=== PATIENT | female | born 1965 | race Caucasian/White ===

== ENCOUNTER 2019-01-15 02:41 | Inpatient (IN) | payer MEDICARE, MEDICAID ==
[~2019-01-15] VITALS: Ht 154.9 cm; Wt 63.8 kg
--- OUTSIDE RECORDS SUMMARY | ~2019-01-15 | XMS | Encounter Summary ---
Demographics + + + | Address | [address] | | | [place] [address] | + + + | Home Phone | | + + + | Preferred Language | Unknown | + + + | Marital Status | Single | + + + | Shinto Affiliation | 1041 | + + + | Race | Unknown | + + + | Ethnic Group | Unknown | + + + Author + + + | Author | [facility] | | | and [place] | + + + | Organization | [facility] | | | and [place] | + + + | Address | Unknown | + + + | Phone | Unavailable | + + + Support + + +---------+ + | Name | Relationship | Address | Phone | + + +---------+ + | Juana Sainz | ECON | Unknown | | + + +---------+ + | Vahe Khan | ECON | Unknown | | + + +---------+ + Care Team Providers + +------+ + | Care Market Stall Vendor Name | Role | Phone | + +------+ + PCP | Unavailable | + +------+ + Encounter Details +--------+ + + + + | Date | Type | Department | Care Team | Description | +--------+ + + + + | 01/29/ | Hospital | [facility] | Ozzy Delcid, | | | 2009 - | Encounter | [facility] | MD [address] | | | | | [address] | [place] | | | 02/23/ | | [place] [address] | [id number] | | | 2009 | | [phone] | | | +--------+ + + + + Social History + +-------+ +--------+------+ | Tobacco Use | Types | Packs/Day | Years | Date | | | | | Used | | + +-------+ +--------+------+ | Never Assessed | | | | | + +-------+ +--------+------+ + + + | Sex Assigned at | Date Recorded | | | | + + + | Not on file | | + + + + + + + | Job Start Date | Occupation | Industry | + + + + | Not on file | Not on file | Not on file | + + + + + + + + | Travel History | Travel Start | Travel End | + + + + + + | No recent travel history available. | + + documented as of this encounter Medications at Time of Discharge + + + +---------+ + + | Medication | Sig | Dispensed | Refills | Start | End Date | | | | | | Date | | + + + +---------+ + + | albuterol (PROAIR | 1-2 puff every 4 | | 0 | 12/27/19 | | | HFA) 90 mcg/puff | hours as needed for | | | 10 | 2 | | inhaler | shortness of breath | | | | | + + + +---------+ + + documented as of this encounter Plan of Treatment +--------+---------+ + + + | Date | Type | Specialty | Care Team | Description | +--------+---------+ + + + | 03/01/ | Office | Pulmonology | Mukul Clark MD | | | 2019 | Visit | | [address] | | | | | | [place] | | | | | | [address] | | | | | | | | +--------+---------+ + + + | 11/24/ | Office | Cardiology | [place], | | | 2019 | Visit | | SINDHU Erickson [address] | | | | | | [place], | | | | | | [place] [address] | | | | | | [phone] | | | | | | | | +--------+---------+ + + + documented as of this encounter Visit Diagnoses Not on filedocumented in this encounter"
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
--- OUTSIDE RECORDS SUMMARY | ~2019-01-15 | XMS | Encounter Summary ---
Demographics + + + | Address | [address] | | | [place] [address] | + + + | Home Phone | | + + + | Preferred Language | Unknown | + + + | Marital Status | Single | + + + | Rastafari Affiliation | 1041 | + + + | Race | Unknown | + + + | Ethnic Group | Unknown | + + + Author + + + | Author | [facility] | | | and [place] | + + + | Organization | [facility] | | | [...] Team Providers + +------+ + | Care Charter Driver Name | Role | Phone | + +------+ + | Juan Cherry DO | PCP | | + +------+ + Reason for Visit + + + | Reason | Comments | + + + | Hematuria | | + + + | Bladder Pain | | + + + Encounter Details +--------+ + + + + | Date | Type | Department | Care Team | Description | +--------+ + + + + | 07/24/ | Telephone | [facility] | Andriy Weber | Hematuria; Bladder | | 2017 | | [address] | [address] | Pain | | | | [place], [place] | [facility] | | | | | [address] | [place] [address] | | | | | [phone] | [phone] | | | | | | | [...] [place], | | | | | | [place] [address] | | | | | | [phone] | | | | | | | | +--------+---------+ + + + documented as of this encounter Visit Diagnoses Not on filedocumented in this encounter"
--- OUTSIDE RECORDS SUMMARY | ~2019-01-15 | XMS | Encounter Summary ---
Demographics + + + | Address | [address] | | | [place] [address] | + + + | Home Phone | | + + + | Preferred Language | Unknown | + + + | Marital Status | Single | + + + | Nondenominational Affiliation | 1041 | + + + | Race | Unknown | + + + | Ethnic Group | Unknown | + + + Author + + + | Author | [facility] | | | and [place] | + + + | Organization | [facility] | | [...] Team Providers + +------+ + | Care Assurance Assistant Name | Role | Phone | + +------+ + | Juan Cherry DO | PCP | | + +------+ + Encounter Details +--------+ + + + + | Date | Type | Department | Care Team | Description | +--------+ + + + + | 05/25/ | Documentati | [facility] | Janey Low, | | | 2013 | on | [facility] | INDUSTRIAL ENGINEERING TECHNICIAN [address] | | | | | [address] | [place], [place] | | | | | [place], [place] | [address] | | | | | [address] | [phone] | | | | | [phone] | | | +--------+ + + + + Social History + +-------+ +--------+ + | Tobacco Use | Types | Packs/Day | Years | Date | | | | | Used | | + +-------+ +--------+ + | Former Smoker | | 0.5 | 30 | Quit: 08/28/2012 | + +-------+ +--------+ + + +---+---+---+ [...] documented as of this encounter Progress Notes Janey Low, INDUSTRIAL ENGINEERING TECHNICIAN - 05/25/2013 9:34 [facility] OP [address] [place] [id number] Cancellation/No Show Date: 05/25/2013 Patient Information Patient Name: Rosario Malik Date of : 1965 Age: 48 y.o. Reason for missed visit:Pt called to cancel due to COPD Phone call placed: no Plan: Electronically signed by: Janey Low PTA, 05/25/2013 9:34 Patient Name: Rosario Malik/: 1965/ documented in this encounter Plan of Treatment +--------+---------+ + + + | Date | Type | Specialty | Care Team | Description | +--------+---------+ + + + | 03/01/ | Office | Pulmonology | Mukul Clark MD | | | 2019 | Visit | | [address] | | | | | | [place] | | | | | | [phone] | | | | | | | | +--------+---------+ + + + | 11/24/ | Office | Cardiology | [place] | | | 2019 | Visit | | [address] | | | | | | [place] | | | | | | [place] [address] | | | | | | [phone] | | | | | | | | +--------+---------+ + + + documented as of this encounter Visit Diagnoses Not on filedocumented in this encounter"
--- OUTSIDE RECORDS SUMMARY | ~2019-01-15 | XMS | Encounter Summary ---
Demographics + + + | Address | [address] | | | [place] [address] | + + + | Home Phone | | + + + | Preferred Language | Unknown | + + + | Marital Status | Single | + + + | Confucianism Affiliation | 1041 | + + + | Race | Unknown | + + + | Ethnic Group | Unknown | + + + Author + + + | Author | [facility] | | | and [place] | + + + | Organization | [facility] | | | [...] Team Providers + +------+ + | Care Pasting Machine Operator Name | Role | Phone | + +------+ + | Juan Cherry DO | PCP | | + +------+ + Reason for Visit +--------+ + | Reason | Comments | +--------+ + | Other | having pain after heart cath | +--------+ + Encounter Details +--------+ + + + + | Date | Type | Department | Care Team | Description | +--------+ + + + + | 03/01/ | Telephone | [facility] | Jared Mcdonough, | Other (having pain | | 2015 | | CARDIOLOGY [address] | after heart cath) | | | | [place], | [place], | | | | | [place] [address] | [place] [address] | | | | | [phone] | [phone] | | | | | | | [...] [place] | | | | | | [address] | | | | | | | | +--------+---------+ + + + | 11/24/ | Office | Cardiology | [place], | | | 2019 | Visit | | SINDHU Erickson [address] | | | | | | [place] | | | | | | [place] [address] | | | | | | [phone] | | | | | | | | +--------+---------+ + + + documented as of this encounter Visit Diagnoses Not on filedocumented in this encounter"
--- OUTSIDE RECORDS SUMMARY | ~2019-01-15 | XMS | Encounter Summary ---
Demographics + + + | Address | [address] | | | [place] [address] | + + + | Home Phone | | + + + | Preferred Language | Unknown | + + + | Marital Status | Single | + + + | Spiritism Affiliation | 1041 | + + + | Race | Unknown | + + + | Ethnic Group | Unknown | + + + Author + + + | Author | [facility] | | | and [place] | + + + | Organization | [facility] | | | [...] Team Providers + +------+ + | Care Scale Balancer Name | Role | Phone | + +------+ + | Juan Cherry DO | PCP | | + +------+ + Reason for Visit +--------+ + | Reason | Comments | +--------+ + | Apnea | | +--------+ + Encounter Details +--------+---------+ + + + | Date | Type | Department | Care Team | Description | +--------+---------+ + + + | 07/03/ | Office | [facility] | aMxim Delgado PA | GARRY on CPAP (Primary | | 2012 | Visit | SLEEP DISORDER [address] | [address] | Dx); Organic | | | | [address] | [place] | insomnia, | | | | [place] [address] | [address] | unspecified | | | | [phone] | | | +--------+---------+ + + + [...] + + + | Blood Pressure | 98/60 | 07/03/2012 10:52 AM | | | | | PDT | | + + + + + | Pulse | 81 | 07/03/2012 10:52 AM | | | | | PDT | | + + + + + | Temperature | - | - | | + + + + + | Respiratory Rate | 14 | 07/03/2012 10:52 AM | | | | | PDT | | + + + + + | Oxygen Saturation | - | - | | + + + + + | Inhaled Oxygen | - | - | | | Concentration | | | | + + + + + | Weight | 59.1 kg (130 lb 4.8 | 07/03/2012 10:52 AM | | | | oz) | PDT | | + + + + + | Height | - | - | | + + + + + | Body Mass Index | 23.44 | 05/15/2012 10:45 AM | | | | | PDT | | + + + + + documented in this encounter Progress Notes Maxim Delgado PA - 07/03/2012 10:59 AM PDT Subjective: Patient ID: Rosario Malik is a 47 y.o. female. HPI last office visit was: 04/07/2011 date of polysomnography: 10/15/2011 AHI: 47.1 RDI: 53.4 Machine type: [employer] with full face mask obtained from: [facility] pressure is: 13 cm 95%: 13.0 cm maxium: 13.0 cm CPAP download shows CPAP useage # nights: / average usage (all nights): 5:28 average usage (nights used): 5:36 AHI: 13.6 (3.0 central) Rosario comes in for CPAP compliance and insomnia follow up. She is wearing her CPAP on a nightly basis. She is still napping at times, but she is not napping as often and not for a s long. She is now able to fall asleep quickly. If she wakes during the night, she goes ba to sleep without difficulty. She was very happy with how she has been sleeping until the straps on her headgear stopped holding. She has been waking during the night because of th e straps coming undone. I have discussed the download in detail. This shows that her sleep apnea is somewhat contro lled, with an AHI of 13.6 (3.0 central). During a repeat titration study ordered by Dr. Ro solis, her RDI was 0.4 at 13 cm. She felt that she was sleeping better and was more reste d after the pressure change to 13 cm. It is likely that the elevated AHI is a result of the leaks from her mask or a sensor error. I had her work with a ammonia refrigeration technician to ensure that she was fitting her mask properly. The main concern with her mask was the velcro wearing out a nd not holding. Review of Systems Objective: Physical Exam Assessment: Problem #1: OBSTRUCTIVE SLEEP APNEA (327.23) Her CPAP compliance is going well. She is doing very well since changing to a Respironics full face mask. 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 She is still napping at times, but the naps are not as long and are not interfering with her sleep at night. Plan: 1. She is to continue with CPAP indefinitely, with a goal of wearing her CPAP 100% of the t francy she is asleep. She is to replace her mask. 2. She is to continue to work towards getting her sleep at night. I will follow up again in 1 month, sooner prn. Fifteen minutes were spent [id number], wit h the majority of time spent in counseling. Maxim Delgado PA-C cc: DO Loreta Guillaume MD documented in this enco unter Plan of Treatment +--------+---------+ + + + | Date | Type | Specialty | Care Team | Description | +--------+---------+ + + + | 03/01/ | Office | Pulmonology | Mukul Clark MD | | | 2019 | Visit | | [address] | | | | | | [place] | | | | | | [address] | | | | | | | | +--------+---------+ + + + | 11/24/ | Office | Cardiology | [place], | | | 2019 | Visit | | [address] | | | | | | [place], | | | | | | [place] [address] | | | | | | [phone] | | | | | | | | +--------+---------+ + + + documented as of this encounter Visit Diagnoses + + | Diagnosis | + + | GARRY on CPAP - Primary Obstructive sleep apnea (adult) (pediatric) | + + | Organic insomnia, unspecified | + + documented in this encounter"
--- OUTSIDE RECORDS SUMMARY | ~2019-01-15 | XMS | Encounter Summary ---
Demographics + + + | Address | [address] | | | [place] [address] | + + + | Home Phone | | + + + | Preferred Language | Unknown | + + + | Marital Status | Single | + + + | Sikhism Affiliation | 1041 | + + + | Race | Unknown | + + + | Ethnic Group | Unknown | + + + Author + + + | Author | [facility] | | | and [place] | + + + | Organization | [facility] | | | and [...] Team Providers + +------+ + | Care Director Of Personnel Name | Role | Phone | + +------+ + | Juan Cherry DO | PCP | | + +------+ + Reason for Visit +---------+ + | Reason | Comments | +---------+ + | Results | | +---------+ + Encounter Details +--------+ + + + + | Date | Type | Department | Care Team | Description | +--------+ + + + + | 11/11/ | Telephone | [facility] [place] | Shashi Segovia | Results | | 2013 | | PHYSIATRY [address] MD Need updated | | | | | [place], | address | | | | | [place] [address] | | | | | | [phone] | | | +--------+ + + + [...] [place] | | | | | | [address] | | | | | | | | +--------+---------+ + + + | 11/24/ | Office | Cardiology | [place], | | | 2019 | Visit | | SINDHU Erickson [address] | | | | | | [place], | | | | | | [place] [address] | | | | | | [phone] | | | | | | | | +--------+---------+ + + + documented as of this encounter Visit Diagnoses Not on filedocumented in this encounter"
--- OUTSIDE RECORDS SUMMARY | ~2019-01-15 | XMS | Encounter Summary ---
Demographics + + + | Address | [address] | | | [place] [address] | + + + | Home Phone | | + + + | Preferred Language | Unknown | + + + | Marital Status | Single | + + + | Yazdanism Affiliation | 1041 | + + + | Race | Unknown | + + + | Ethnic Group | Unknown | + + + Author + + + | Author | [facility] | | | and [place] | + + + | Organization | [facility] | | | [...] Team Providers + +------+ + | Care Junior Programmer Analyst Name | Role | Phone | + +------+ + | Juan Cherry DO | PCP | | + +------+ + Encounter Details +--------+ + + + + | Date | Type | Department | Care Team | Description | +--------+ + + + + | 04/12/ | Hospital | [facility] | Offenstein, | COPD exacerbation | | 2013 | Encounter | MED [facility] GENER[facility] | Loreta Alonso MD | ([facility]) | | | | CONV DEPT [address] | | | | | | [address] [place], | | | | | | [place] [address] | | | | | | [phone] | | | +--------+ + + + [...] | | | | | order to [facility]. | | | | | + + [...] | | | | send order to [facility] | | [facility] | | | | | | | [...] + + | albuterol 2.5 mg/3 | Take 3 mLs by | 150 mL | 5 | 08/11/19 | | | mL nebulizer | nebulization every 6 | | | 13 | 4 | | solution | hours as needed for | | | | | | | Wheezing or | | | | | | | Shortness of Breath. | | | | | + + + +---------+ + + | cefuroxime | Take 1 tablet by | 14 | 0 | 04/12/19 | | | (CEFTIN) 250 mg | mouth 2 times daily | tablet | | 14 | 4 | | tabletIndications: | for 7 days. | | | | | | COPD exacerbation | | | | | | | (HCC) | | | | | | + + + +---------+ + + | cetirizine | Take 1 tablet by | 90 | 3 | 09/08/19 | | | (ZYRTEC) 10 mg | mouth Daily. | tablet | | 13 | 4 | | tablet | | | | | | + + + +---------+ + + | DULoxetine | Take one by mouth | | 0 | 11/25/19 | | | (CYMBALTA) 60 MG | daily | | | 12 | 5 | | capsule | | | | | | + + + +---------+ + + | | inhale 1 puff by | | 0 | 03/14/19 | | | fluticasone-salmeter | mouth twice daily | | | 11 | 4 | | ol (ADVAIR DISKUS) | | | | | | | 500-50 mcg/puff | | | | | | | diskus inhaler | | | | | | + + + +---------+ + + | | Take 1 tablet by | | 0 | | | | HYDROcodone-acetamin | mouth every 6 hours | | | | 4 | | ophen (NORCO) 5-325 | as needed. | | | | | | mg per tablet | | | | | | [...] +---------+ + + | omeprazole | Take 20 mg by mouth | | 0 | 12/25/19 | | | (PRILOSEC) 20 mg | Daily as needed. | | | 13 | 4 | | capsule | | | | | | + + + +---------+ + + | | Take 1 tablet by | 30 | 0 | 04/06/19 | | | oxyCODONE-acetaminop | mouth every 6 hours | tablet | | 14 | 4 | | hen (PERCOCET) 5-325 | as needed for Pain. | | | | | | mg per | | | | | | | tabletIndications: | | | | | | | Sprain of chest | | | | | | | wall, Place of | | | | | | | occurrence, | | | | | | | industrial places | | | | | | | and premises | | | | | | + + + +---------+ + + | predniSONE | 4 tabs orally daily | 30 | 0 | 04/12/19 | | | (DELTASONE) 10 mg | for 3 days then | tablet | | 14 | 4 | | tabletIndications: | decrease by 1 tab | | | | | | COPD exacerbation | every 3 days. | | | | | | ([facility]) | | | | | | + + + +---------+ + + | Respiratory | Incentive | 1 each | 99 | 04/12/19 | 02/17/201 | | Therapy Supplies | spirometer. Please [...] tablet by | 30 | 11 | 04/12/19 | | | (DALIRESP) 500 mcg | mouth Daily. | tablet | | 14 | 5 | | tablet | | | | | | + + + +---------+ + + | SPIRIVA HANDIHALER | INHALE CONTENTS OF | 30 | 5 | 01/21/20 | | | 18 MCG inhalation | ONE CAPSULE ONCE | capsule | | 13 | 4 | | capsule | DAILY USING | | | | | | | HANDIHALER | | | | | + + + +---------+ + + | traMADol (ULTRAM) | Take 50 mg by mouth | | 0 | 11/07/19 | | | 50 mg tablet | 4 times daily. | | | 12 | 7 | + + + +---------+ + + documented as of this encounter Progress Notes Loreta London MD - 04/12/2013 12:26 PM PST Quick Note: Please let the patient know their lab result is normal. documented in this encounter Plan of Treatment +--------+---------+ + + + | Date | Type | Specialty | Care Team | Description | +--------+---------+ + + + | 03/01/ | Office | Pulmonology | Mukul Clark MD | | | 2019 | Visit | | [address] | | | | | | [place] | | | | | | [phone] | | | | | | | | +--------+---------+ + + + | 11/24/ | Office | Cardiology | [place] | | | 2019 | Visit | | SINDHU Erickson [address] | | | | | | [place], | | | | | | [place] [address] | | | | | | [phone] | | | | | | | | +--------+---------+ + + + documented as of this encounter Procedures + +--------+ + + + | Procedure Name | Priori | Date/Time | Associated Diagnosis | Comments | | | ty | | | | + +--------+ + + + | HEPATIC FUNCTION | Routin | 04/12/2013 | | Results for this | | PANEL | e | 11:20 AM | | procedure are in the | | | | PST | | results section. | + +--------+ + + + | HEPATIC FUNCTION | Routin | 04/12/2013 | COPD exacerbation | Results for this | | PANEL | e | 11:20 AM | (HCC) | procedure are in the | | | | PST | | results section. | + +--------+ + + + documented in this encounter Results Hepatic Function Panel (04/12/2013 11:20 AM PST) + + + + + + | Component | Value | Ref Range | Performed | Pathologist | | | | | At | Signature | + + + + + + | Alkaline | 72 | 40 - 110 IU/L | [facility] | | | Phosphatase | | | [facility] | | | | | | MED[facility] | | | | | | CENTER - | | | | | | LABORATORY | | + + + + + + | AST | 28 | 10 - 42 IU/L | [facility] | | | | | | [facility] | | | | | | [facility] | | | | | | CENTER - | | | | | | LABORATORY | | + + + + + + | ALT | 26 | 6 - 45 IU/L | [facility] | | | | | | [facility] | | | | | | [facility] | | | | | | CENTER - | | | | | | LABORATORY | | + + + + + + | Bilirubin | 0.3 | 0.2 - 1.0 mg/dL | [facility] | | | Total | | | [facility] | | | | | | MEDICAL | | | | | | CENTER - | | | | | | LABORATORY | | + + + + + + | Bilirubin | <0.1 | 0.0 - 0.2 mg/dL | [facility] | | | Direct | | | [facility] | | | | | | MEDICAL | | | | | | CENTER - | | | | | | LABORATORY | | + + + + + + | BILIRUBIN | 0.2Comment: DIRECT BILI | 0.00 - 1.00 | [facility] | | | INDIRECT | = CONJUGATED | mg/dL | [facility] | | | | INDIRECT BILI = | | MEDICAL | | | | UNCONJUGATED | | CENTER - | | | | | | LABORATORY | | + + + + + + | Total | 6.3 | 6.0 - 7.8 gm/dL | [facility] | | | Protein | | | [facility] | | | | | | MEDICAL | | | | | | CENTER - | | | | | | LABORATORY | | + + + + + + | Albumin | 3.6 | 3.2 - 5.0 gm/dL | [facility] | | | | | | [facility] | | | | | | MEDICAL | | | | | | CENTER - | | | | | | LABORATORY | | + + + + + + + + | Specimen | + + | | + + + + + + + | Performing | Address | City/State/Zipcode | Phone Number | | Organization | | | | + + + + + | [facility] | [address] | [place] | [phone] | | [facility] | | [address] | | | - LABORATORY | | | | + + + + + | [facility] | [address] | [place], [place] | | | [facility] | | [address] | | | - LABORATORY | | | | + + + + + Hepatic Function Panel (04/12/2013 11:20 AM PST) + + + + + + | Component | Value | Ref Range | Performed | Pathologist | | | | | At | Signature | + + + + + + | Alkaline | 72 | 40 - 110 IU/L | [facility] | | | Phosphatase | | | [facility] | | | | | | MEDICAL | | | | | | CENTER - | | | | | | LABORATORY | | + + + + + + | AST | 28 | 10 - 42 IU/L | [facility] | | | | | | [facility] | | | | | | MEDICAL | | | | | | CENTER - | | | | | | LABORATORY | | + + + + + + | ALT | 26 | 6 - 45 IU/L | [facility] | | | | | | [facility] | | | | | | MEDICAL | | | | | | CENTER - | | | | | | LABORATORY | | + + + + + + | Bilirubin | 0.3 | 0.2 - 1.0 mg/dL | [facility] | | | Total | | | [facility] | | | | | | MEDICAL | | | | | | CENTER - | | | | | | LABORATORY | | + + + + + + | Bilirubin | <0.1 | 0.0 - 0.2 mg/dL | [facility] | | | Direct | | | [facility] | | | | | | MEDICAL | | | | | | CENTER - | | | | | | LABORATORY | | + + + + + + | BILIRUBIN | 0.2Comment: DIRECT BILI | 0.00 - 1.00 | [facility] | | | INDIRECT | = CONJUGATED | mg/dL | [facility] | | | | INDIRECT BILI = | | MEDICAL | | | | UNCONJUGATED | | CENTER - | | | | | | LABORATORY | | + + + + + + | Total | 6.3 | 6.0 - 7.8 gm/dL | [facility] | | | Protein | | | [facility] | | | | | | MEDICAL | | | | | | CENTER - | | | | | | LABORATORY | | + + + + + + | Albumin | 3.6 | 3.2 - 5.0 gm/dL | [facility] | | | | | | [facility] | | | | | | MEDICAL | | | | | | CENTER - | | | | | | LABORATORY | | + + + + + + + + | Specimen | + + | Blood specimen | | (specimen) | + + + + + + + | Performing | Address | City/State/Zipcode | Phone Number | | Organization | | | | + + + + + | [facility] | [address] | [place] | [phone] | | [facility] | | [address] | | | - LABORATORY | | | | + + + + + | [facility] | [address] | [place], [place] | | | [facility] | | [address] | | | - LABORATORY | | | | + + + + + documented in this encounter Visit Diagnoses + + | Diagnosis | + + | COPD exacerbation (HCC) Obstructive chronic bronchitis with exacerbation | + + documented in this encounter"
--- OUTSIDE RECORDS SUMMARY | ~2019-01-15 | XMS | Encounter Summary ---
Demographics + + + | Address | [address] | | | [place] [address] | + + + | Home Phone | | + + + | Preferred Language | Unknown | + + + | Marital Status | Single | + + + | Rastafarian Affiliation | 1041 | + + + | Race | Unknown | + + + | Ethnic Group | Unknown | + + + Author + + + | Author | [facility] | | | and [place] | + + + | Organization | [facility] | | | [...] Team Providers + +------+ + | Care Freight Handler Name | Role | Phone | + +------+ + | Juan Cherry DO | PCP | | + +------+ + Encounter Details +--------+ + + + + | Date | Type | Department | Care Team | Description | +--------+ + + + + | 12/17/ | Hospital | [facility] | Shashi Segovia | Therapeutic drug | | 2013 | Encounter | [facility] | MD Miryam Need updated | monitoring | | | | [address] | address | | | | | [place] | | | | | | [address] | | | | | | [phone] | | | +--------+ + + + [...] | | | order to [facility]. | | | | | + + [...] | | | | send order to [facility] | | | | | | | [facility]. | | | | | | | [...] | INHALE CONTENTS OF | 30 | 0 | 12/07/19 | | | 18 MCG inhalation | ONE CAPSULE VIA | capsule | | 14 | 4 | | capsule | HANDIHALER EVERY DAY | | | | | + + [...] [place] | | | | | | [address] | | | | | | | | +--------+---------+ + + + | 11/24/ | Office | Cardiology | [place], | | | 2019 | Visit | | SINDHU Erickson [address] | | | | | | [place], | | | | | | [place] [address] | | | | | | [phone] | | | | | | | | +--------+---------+ + + + documented as of this encounter Procedures + +--------+ + + + | Procedure Name | Priori | Date/Time | Associated Diagnosis | Comments | | | ty | | | | + +--------+ + + + | BUN | Routin | 12/17/2013 | Therapeutic drug | Results for this | | | e | 2:05 PM | monitoring | procedure are in the | | | | PDT | | results section. | + +--------+ + + + | CREATININE | Routin | 12/17/2013 | Therapeutic drug | Results for this | | | e | 2:05 PM | monitoring | procedure are in the | | | | PDT | | results section. | + +--------+ + + + documented in this encounter Results Creatinine (12/17/2013 2:05 PM PDT) + +-------+ + + + | Component | Value | Ref Range | Performed | Pathologist | | | | | At | Signature | + +-------+ + + + | Creatinine | 0.77 | 0.60 - 1.30 | [facility] | | | | | mg/dL | [facility] | | | | | | MEDICAL | | | | | | CENTER - | | | | | | LABORATORY | | + +-------+ + + + | eGFR if not | >60 | >=60 | [facility] | | | | | mL/min/1.73m2 | [facility] | | | [facility] | | | MEDICAL | | | | | | CENTER - | | | | | | LABORATORY | | + +-------+ + + + + + | Specimen | + + | Blood | + + + + + + + | Performing | Address | City/State[facility] | Phone Number | | Organization | | | | + + + + + | [facility] | [address] | [place] | [phone] | | [facility] | | [address] | | | - LABORATORY | | | | + + + + + | [facility] | [address] | [place] | | | [facility] | | [address] | | | - LABORATORY | | | | + + + + + BUN (12/17/2013 2:05 PM PDT) + +-------+ + + + | Component | Value | Ref Range | Performed | Pathologist | | | | | At | Signature | + +-------+ + + + | BUN | 5 (L) | 7 - 18 mg/dL | [facility] | | | | | [facility] | | | | | MEDICAL | | | | | | CENTER - | | | | | | LABORATORY | | + +-------+ + + + + + | Specimen | + + | Blood | + + + + + + + | Performing | Address | City/State/Zipcode | Phone Number | | Organization | | | | + + + + + | [facility] | [address] | [place], [place] | [phone] | | [facility] | | [address] | | | - LABORATORY | | | | + + + + + | [facility] | [address] | [place], [place] | | | [facility] | | [address] | | | - LABORATORY | | | | + + + + + documented in this encounter Visit Diagnoses + + | Diagnosis | + + | Therapeutic drug monitoring Encounter for therapeutic drug monitoring | + + documented in this encounter"
--- OUTSIDE RECORDS SUMMARY | ~2019-01-15 | XMS | Encounter Summary ---
Demographics + + + | Address | [address] | | | [place] [address] | + + + | Home Phone | | + + + | Preferred Language | Unknown | + + + | Marital Status | Single | + + + | Scientology Affiliation | 1041 | + + + | Race | Unknown | + + + | Ethnic Group | Unknown | + + + Author + + + | Author | [facility] | | | and [place] | + + + | Organization | [facility] | | [...] Team Providers + +------+ + | Care Bag Sorter Name | Role | Phone | + +------+ + | Juan Cherry DO | PCP | | + +------+ + Reason for Visit +--------+ + | Reason | Comments | +--------+ + | Other | [place] not covered | +--------+ + Encounter Details +--------+ + + + + | Date | Type | Department | Care Team | Description | +--------+ + + + + | 11/09/ | Telephone | [facility] | Andriy Weber | Other ([place] not | | 2015 | | [address] | MD [address] | covered) | | | | [place] | [facility] | | | | | [address] | [place] [address] | | | | | [phone] | [phone] | | | | | | | [...] [place] | | | | | | [address] | | | | | | | | +--------+---------+ + + + | 11/24/ | Office | Cardiology | [place], | | | 2019 | Visit | | SINDHU Erickson [address] | | | | | | [place], | | | | | | [place] [address] | | | | | | [phone] | | | | | | | | +--------+---------+ + + + documented as of this encounter Visit Diagnoses Not on filedocumented in this encounter"
--- OUTSIDE RECORDS SUMMARY | ~2019-01-15 | XMS | Encounter Summary ---
Demographics + + + | Address | [address] | | | [place] [address] | + + + | Home Phone [...] + + | Author | [facility] | | | and [place] | + + + | Organization | [facility] | | | [...] Team Providers + +------+ + | Care Rare/Endangered Species Specialist Name | Role | Phone | + +------+ + | Juan Cherry DO | PCP | | + +------+ + Reason for Visit + + + | Reason | Comments | + + + | Therapy Daily | | | Treatment | | + + + Evaluate & Treat (Routine) +--------+ + + + + + | Status | Reason | Specialty | Diagnoses / | Referred By | Referred To | | | | | Procedures | Contact | Contact | +--------+ + + + + + | Closed | Specialty | Physical | Diagnoses | Rodriguez, | [facility] | | | Services | Therapy / | Concussion | Aaron Kim MD | Pt Op [address] | | | Required | Rehabilitatio | with brief | [address] | | | | n | loss of | [address] | [place], | | | | | consciousnes | [place], | [place] [address] | | | | | s | [place] [address] | Phone: | | | | | Post-concuss | Phone: | [phone] | | | | | ion vertigo | [phone] | Fax: | | | | | [phone] | Fax: | [phone] | | | | | (ICD-10-CM) | [phone] | | | | | | - 850.5 | | | | | | | (ICD-9-CM) - | | | | | | | Concussion | | | | | | | with brief | | | | | | | loss of | | | | | | | consciousnes | | | | | | | s | | | | | | | Procedures | | | | | | | pt eval | | | | | | | vertigo | | | +--------+ + + + + + Encounter Details +--------+---------+ + + + | Date | Type | Department | Care Team | Description | +--------+---------+ + + + | 05/07/ | Office | [facility] | Aaron Rodriguez, | Dizziness (Primary | | 2017 | Visit | MED CTR THERAPY PT | MD [address] | Dx); Impaired | | | | OP [address] | [place] | mobility and | | | | [place] | [phone] | activities of daily | | | | [address] | | living; Concussion | | | | [phone] | Lakeshia Cleary, PT | with brief (less | | | | | [address] | than one hour) loss | | | | | [place] | of consciousness; | | | | | [address] | Intractable acute | | | | | | post-traumatic | | | | | | headache | +--------+---------+ + + + Social History [...] documented as of this encounter Progress Notes Lakeshia Barkley, PT - 05/07/2016 10:15 AM PDTFormatting of this note might be different from t he original. [facility] TH[facility] PT OP [address] [place] [address] Physical Therapy Daily Treatment Note Date: 05/07/2016 Patient Information Patient Name: Rosario Malik Date of : 1965 Age: 51 y.o. Encounter Diagnoses Code Name Primary? R42 Dizziness Yes Z74.09 Impaired mobility and activities of daily living S06.0X9A Concussion with brief (less than one hour) loss of consciousness G44.311 Intractable acute post-traumatic headache Date of Onset: 04/02/2016 Referring Provider: Aaron Rodriguez MD # of PT Visits to Date: 2 Start Time: 1015 Stop time: 1045 Duration: 30 minutes Timed Treatment Codes: 30 minutes Rehab Precautions Office Visit from 05/01/2016 in [facility] PT OP Rehab Precautions Precautions None Pain Assessment: Pain Rating Pre Assessment: 0 Subjective: Pt reports that she is now able to watch about 2 hours of TV without symptoms and has not h ad a headache since last therapy session. Pt requested to end session early due to fatigue Goals: Patient Reported Outcome Goals Patient Reported Outcome Goals: PSFS, DHI Patient Specific Functional Scale Goal 1: Improve sensory usage with a M-CTSIB score with n ormal sways in conditions 1-4 Patient Specific Functional Scale Goal 1 Status: 0 Patient Specific Functional Scale Goal 1 Status Comment: not assess this session Patient Specific Functional Scale Goal 2: Patient will be Independent in a home exercise pr ogram to address symptoms of dizziness/vertigo/imbalance to decrease fall risk and improve a bility to perform ADL's. Patient Specific Functional Scale Goal 2 Status: 2 Patient Specific Functional Scale Goal 2 Status Comment: progressing Objective: Eye exercises: Smoother pursuits Saccades Visual motion: arc At parallel bar with intermittent UE support: Standing on airex with head turns(side to frida e and up/down) with eyes open/closed, standing with feet together with head turns (side to s shaggy and up/down) with eyes open/closed Rocker board: head turns (side to side and up/down) with eyes open Walking at parallel bar: tandem (forward and back), high knees Assessment: pt required occasional rest breaks due to increased symptoms and fatigue but demonstrated i mproved balance and vestibular function and tolerance to activities with less frequent/inten se symptoms compared to last therapy session. Pt would benefit from cont. Therapy to progres s through vestibular rehab to improve ability to complete daily tasks. Next Visit: cont. To progress vestibular rehab and balance Electronically signed by: Lakeshia Barkley PT, 05/07/2016 10:47 Patient Name: Rosario Malik/: 1965/ documented in this encou nter Plan of Treatment +--------+---------+ + + + | Date | Type | Specialty | Care Team | Description | +--------+---------+ + + + | 03/01/ | Office | Pulmonology | Mukul Clark MD | | | 2020 | Visit | | [address] | | | | | | [place] | | | | | | [address] | | | | | | | | +--------+---------+ + + + | 11/24/ | Office | Cardiology | [place], | | | 2020 | Visit | | SINDHU Erickson [address] | | | | | | [place], | | | | | | [place] [address] | | | | | | [phone] | | | | | | | | +--------+---------+ + + + documented as of this encounter Visit Diagnoses + + | Diagnosis | + + | Dizziness - Primary Dizziness and giddiness | + + | Impaired mobility and activities of daily living Mechanical problems with limbs | + + | Concussion with brief (less than one hour) loss of consciousness Concussion with loss | | of consciousness from 31 to 59 minutes | + + | Intractable acute post-traumatic headache Acute post-traumatic headache | + + documented in this encounter"
--- OUTSIDE RECORDS SUMMARY | ~2019-01-15 | XMS | Encounter Summary ---
Demographics + + + | Address | [address] | | | [place] [address] | + + + | Home Phone [...] + + + | Author | [facility] | | | and [place] | + + + | Organization | [facility] | | | [...] Team Providers + +------+ + | Care Insurance Investigator Name | Role | Phone | + +------+ + | Juan Cherry DO | PCP | | + +------+ + Encounter Details +--------+ + + + + | Date | Type | Department | Care Team | Description | +--------+ + + + + | 05/08/ | Orders Only | [facility] [place] [facility] | Andriy Weber | Interstitial | | 2018 | | [address] | MD [address] | cystitis (Primary | | | | [place], [place] | [address] [place] | Dx) | | | | [address] | [place] [address] | | | | | [phone] | [phone] | | | | | | | [...] [place] | | | | | | [address] | | | | | | | | +--------+---------+ + + + | 11/24/ | Office | Cardiology | [place], | | | 2019 | Visit | | SINDHU Erickson [address] | | | | | | [place], | | | | | | [place] [address] | | | | | | [phone] | | | | | | | | +--------+---------+ + + + documented as of this encounter Visit Diagnoses + + | Diagnosis | + + | Interstitial cystitis - Primary Chronic interstitial cystitis | + + documented in this encounter"
--- OUTSIDE RECORDS SUMMARY | ~2019-01-15 | XMS | Encounter Summary ---
Demographics + + + | Address | [address] | | | [place] [address] | + + + | Home Phone | | + + + | Preferred Language | Unknown | + + + | Marital Status | Single | + + + | Denominational Affiliation | 1041 | + + + [...] Team Providers + +------+ + | Care Campus Aide Name | Role | Phone | + +------+ + | Juan Cherry DO | PCP | | + +------+ + Reason for Visit + + + | Reason | Comments | + + + | Follow-up | Tachyarrhythmia | + + + | Results | 48 hour Holter monitor 08/12/2013 ([facility]) | + + + | Palpitations | | + + + Encounter Details +--------+ + + + + | Date | Type | Department | Care Team | Description | +--------+ + + + + | 10/05/ | Off-Site | [facility] [place] | Jared Mcdonough, | Palpitations | | 2013 | Visit | CARDIOLOGY [address] | [address] | (Primary Dx); | | | | [place], | [place], | Paroxysmal atrial | | | | [place] [address] | [place] [address] | tachycardia (HCC) | | | | [phone] | [phone] | | | | | | | [...] + + + | Blood Pressure | 90/58 | 10/05/2013 11:08 AM | right arm | | | | PDT | | + + + + + | Pulse | 62 | 10/05/2013 11:08 AM | irregular | | | | PDT | | + + + + + | Temperature | - | - | | + + + + + | Respiratory Rate | 18 | 10/05/2013 11:08 AM | | | | | PDT | | + + + + + | Oxygen Saturation | - | - | | + + + + + | Inhaled Oxygen | - | - | | | Concentration | | | | + + + + + | Weight | 65.8 kg (145 lb) | 10/05/2013 11:08 AM | | | | | PDT | | + + + + + | Height | 157.5 cm (5' 2") | 10/05/2013 11:08 AM | | | | | PDT | | + + + + + | Body Mass Index | 26.52 | 10/05/2013 11:08 AM | | | | | PDT [...] documented as of this encounter Progress Notes Jared Mcdonough MD - 10/05/2013 11:24 AM PDTFormatting of this note might be different f rom the original. PATIENT NAME: Rosairo Malik : 1965: AGE: 48 y.o. PRIMARY CARE: Juan Cherry DO OUTPATIENT FOLLOW UP VISIT Date of Service: 10/05/2013 HISTORY OF PRESENT ILLNESS: Rosario Malik is a 48 y.o. female with a history of paroxysmal atrial tachycardia wi th palpitation, emphysema, hypothyroidism obstructive sleep apnea and nocturnal hypoxemia. She is being seen today for follow up palpitation. She was last seen 08/12/2013 at which time he was scheduled for echocardiogram and Holter mo nitor for the workup of arrhythmia. Since that time, patient has a persistent arrhythmia an d palpitations with a heart rate by her pulse monitor machine up in the 200 beats per minute range. 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 Patient denies chest pain or chest discomfort. Her breathing is pretty good. She denies a ny ankle leg swelling. MEDICAL, SURGICAL, AND PERSONAL HISTORY Past Medical, Surgical, Family, and Social History are reviewed in EPIC. CURRENT PROBLEMS Patient Active Problem List Diagnosis Hypothyroidism Posttraumatic stress disorder Anxiety disorder BIPOLAR DISORDER UNSPECIFIED Fibromyalgia Insomnia Central sleep apnea COPD (chronic obstructive pulmonary disease) ([facility]) Healthcare maintenance Preventative health care GARRY (obstructive sleep apnea) Multiple personality disorder GERD (gastroesophageal reflux disease) Diverticulosis Insomnia Sprain of chest wall Benign neoplasm of pituitary gland and craniopharyngeal duct (pouch) ([facility]) Status post total hysterectomy Irritable colon Hypoxemia ([facility]) Allergic rhinitis Tachycardia Palpitations Tachyarrhythmia CURRENT MEDICATIONS Outpatient Encounter Prescriptions as of 10/05/2013 Medication Sig Dispense Refill ADVAIR DISKUS 500-50 MCG/DOSE diskus inhaler INHALE 1 PUFF BY MOUTH TWICE DAILY 60 eac h 5 albuterol (PROAIR HFA) 90 mcg/puff inhaler Inhale 2 puffs into the lungs every 6 hours as needed for Wheezing or Shortness of Breath. 1 Inhaler 5 albuterol-ipratropium (DUONEB) 2.5-0.5 mg/3 mL SOLN Take 3 mLs by nebulization every 4 hours as needed. DULoxetine (CYMBALTA) 60 MG capsule Take one by mouth daily gabapentin (NEURONTIN) 800 MG tablet Take 800 mg by mouth 3 times daily. levothyroxine (SYNTHROID, LEVOTHROID) 75 MCG tablet Take 75 mcg by mouth every morning (before breakfast). Multiple Vitamins-Minerals (MULTIVITAMIN PO) Take by mouth Daily. Respiratory Therapy Supplies [facility] Incentive spirometer. Please provide instructions in use. Dx: 848.8 MADELEINE: 3 months 1 each 99 [facility] Please provide patient with necessary CPAP supplies ( she did not specify, okay to send order as appropriate) Diagnosis Code(s)327.23 . Length of Need 99 months. Please send order to [facility]. 1 each 0 Respiratory Therapy Supplies MISC Change CPAP back to 11-14 cm H2O. All necessary suppl ies. No oxygen bleed in. Diagnosis Code(s)327.23. Length of Need: Lifetime. Please send orde r to [facility]. This is not a new order, just a change in settings. 1 each 99 rizatriptan (MAXALT) 10 mg tablet Take 10 mg by mouth as needed. May repeat in 2 hours if needed roflumilast (DALIRESP) 500 mcg tablet Take 1 tablet by mouth Daily. 30 tablet 11 SPIRIVA HANDIHALER 18 MCG inhalation capsule INHALE 1 CAPSULE BY MOUTH DAILY 30 capsul e 0 traMADol (ULTRAM) 50 mg tablet Take 50 mg by mouth 4 times daily. ziprasidone (GEODON) 80 MG capsule Take 80 mg by mouth 2 times daily. ALLERGIES Allergies Allergen Reactions Onion Extract Throat Swells Doxycycline Hives Erythromycin Base Other (See Comments) Bloating and swelling, lips swell Nsaids Hives Pork Allergy Meperidine Panic attacks ROS ROS OBJECTIVE: PHYSICAL EXAM BP 90/58 | Pulse 62 | Resp 18 | Ht 1.575 m (5' 2") | Wt 65.772 kg (145 lb) | BMI 26.51 kg/m 2 Physical Exam Constitutional: She appears well-developed and well-nourished. No distress. Female individual without acute distress. Neck: Normal carotid pulses, no hepatojugular reflux [...] does not e xhibit a depressed mood. LAB RESULTS: LIPID No results found for [...] ALTEX 21 05/10/2013 BILITOT 0.6 05/20/2013 CREA 0.76 07/14/2013 BUN 9 07/14/2013 EGFR >60 03/22/2013 EGFREX 60 05/10/2013 CREEX 0.8 05/10/2013 HEMATOLOGY Lab Results Component Value Date WBC 13.3* 07/14/2013 HGB 14.2 07/14/2013 HCT 42.9 07/14/2013 PLT 343 07/14/2013 HGBEX 14.5 05/10/2013 ASSESSMENT: 1. Palpitation secondary to the paroxysmal [...] and ventricular function don e at the [facility]. LVEF 78%. C. Holter Monitor 08/16/13 Underlying normal sinus rhythm with rate 56-165 beats per minut e, average rate 91, very rare premature ventricular contractions, Very are premature atrial contractions, and 2 episodes of paroxysmal atrial tachycardia, longest 18 beats, max rte, 15 0 beats per minute. D. Today, patient has a persistent symptoms of palpitation/tachycardia. She said that the symptoms of palpitation and interfered with her physical activities. Otherwise, there is n o signs and symptoms of overt congestive heart failure. She is in a class II of [employer] functional class. There is no fluid retention on physical examination. 2. Emphysema/COPD 3. Hypothyroidism 4. Obstructive sleep apnea and nocturnal hypoxemia A. she is using CPAP machine and nighttime oxygen supplement. PLAN: 1. I spend time at length talking about natural course, treatment and prognosis of parox ysmal atrial tachycardia. Options of medication versus ablation was discussed. Patient is interested in exploring the option of ablation. 2. patient will be referred to Dr. Ding, learning and development specialist at [facility] for PAT ablati on 3. Followup in 3 months Electronically signed by: Jared Mcdonough MD [facility] 10/05/2013 11:25 Portions of this chart may have been created with [employer] voice recognition software. Occasi onal wrong-word or sound-alike substitutions may have occurred due to the inherent cárdenas itations of voice recognition software. Please read the chart carefully and recognize, using context, where these substitutions have occurred. documented in this encounter Plan of Treatment [...] [place], | | | | | | [place] [address] | | | | | | [phone] | | | | | | | | +--------+---------+ + + + documented as of this encounter Visit Diagnoses + + | Diagnosis | + + | Palpitations - Primary | + + | Paroxysmal atrial tachycardia (HCC) Paroxysmal supraventricular tachycardia | + + documented in this encounter
--- OUTSIDE RECORDS SUMMARY | ~2019-01-15 | XMS | Encounter Summary ---
Demographics + + + | Address | [address] | | | [place] [address] | + + + | Home Phone | | + + + | Preferred Language | Unknown | + + + | Marital Status | Single | + + + | Faith Affiliation | 1041 | + + + [...] Team Providers + +------+ + | Care Schedule Maker Name | Role | Phone | + +------+ + PCP | Unavailable | + +------+ + Encounter Details +--------+ + + + + | Date | Type | Department | Care Team | Description | +--------+ + + + + | 12/29/ | [facility] | [facility] | | | | 2008 - | Encounter | MED CTR OP REHAB | | | | | | [address] | | | | 01/23/ | | [place] [address] | | | | 2008 | | [phone] | | | +--------+ + + + [...] [place] | | | | | | [address] | | | | | | | | +--------+---------+ + + + | 11/24/ | Office | Cardiology | [place], | | | 2020 | Visit | | SINDHU Erickson [address] | | | | | | [place], | | | | | | [place] [address] | | | | | | [phone] | | | | | | | | +--------+---------+ + + + documented as of this encounter Visit Diagnoses Not on filedocumented in this encounter"
--- OUTSIDE RECORDS SUMMARY | ~2019-01-15 | XMS | Encounter Summary ---
Demographics + + + | Address | [address] | | | [place] [address] | + + + | Home Phone [...] Team Providers + +------+ + | Care Cnc Wood Lathe Operator Name | Role | Phone | + +------+ + | Ozzy Delcid MD | PCP | | + +------+ + Encounter Details +--------+ + + + + | Date | Type | Department | Care Team | Description | +--------+ + + + + | 11/24/ | Abstract | [facility] | Ozzy Delcid, | | | 2011 | | Anti-Coagulation | [address] | | | | | Clinic | [place] | | | | | | [address] | | | | | | | [...] [place] | | | | | | [address] | | | | | | | | +--------+---------+ + + + | 11/24/ | Office | Cardiology | [place], | | | 2019 | Visit | | SINDHU Erickson [address] | | | | | | [place], | | | | | | [place] [address] | | | | | | [phone] | | | | | | | | +--------+---------+ + + + documented as of this encounter Visit Diagnoses Not on filedocumented in this encounter"
--- OUTSIDE RECORDS SUMMARY | ~2019-01-15 | XMS | Encounter Summary ---
Demographics + + + | Address | [address] | | | [place] [address] | + + + | Home Phone | | + + + | Preferred Language | Unknown | + + + | Marital Status | Single | + + + | Religion Affiliation | 1041 | + + + [...] Phone | + + +---------+ + | uJana Sainz | ECON | Unknown | | + + +---------+ + | Vahe Khan | ECON | Unknown | | + + +---------+ + Care Team Providers + +------+ + | Care Children'S Tutor Name | Role | Phone | + +------+ + PCP | Unavailable | + +------+ + Encounter Details +--------+ + + + + | Date | Type | Department | Care Team | Description | +--------+ + + + + | 09/27/ | [facility] | [facility] | | | | 2009 | Encounter | MED CTR LABORATORY | | | | | | [address] | | | | | | [place] | | | | | | [address] | | | | | | [phone] | | | +--------+ + + + [...] [place] | | | | | | [address] | | | | | | | | +--------+---------+ + + + | 11/24/ | Office | Cardiology | [place], | | | 2020 | Visit | | SINDHU Erickson [address] | | | | | | [place], | | | | | | [place] [address] | | | | | | [phone] | | | | | | | | +--------+---------+ + + + documented as of this encounter Visit Diagnoses Not on filedocumented in this encounter"
--- OUTSIDE RECORDS SUMMARY | ~2019-01-15 | XMS | Encounter Summary ---
Demographics + + + | Address | [address] | | | [place] [address] | + + + | Home Phone | | + + + | Preferred Language | Unknown | + + + | Marital Status | Single | + + + | Orthodox Affiliation | 1041 | + + + | Race | Unknown | + + + | Ethnic Group | Unknown | + + + Author + + + | Author | [facility] | | | and [place] | + + + | Organization | [facility] | | | [...] Team Providers + +------+ + | Care Certified Anesthesiologist Assistant Name | Role | Phone | + +------+ + PCP | Unavailable | + +------+ + Encounter Details +--------+ + + + + | Date | Type | Department | Care Team | Description | +--------+ + + + + | 11/27/ | Hospital | [facility] | Ozzy Delcid, | | | 2009 | Encounter | MED CTR LABORATORY | [address] | | | | | [address] [place] | [place], [place] | | | | | [place], [place] | [address] | | | | | [address] | | | | | | [phone] | | | +--------+ + + + [...] [place] | | | | | | [address] | | | | | | | | +--------+---------+ + + + | 11/24/ | Office | Cardiology | [place], | | | 2019 | Visit | | SINDHU Erickson [address] | | | | | | [place] | | | | | | [place] [address] | | | | | | [phone] | | | | | | | | +--------+---------+ + + + documented as of this encounter Visit Diagnoses Not on filedocumented in this encounter"
--- OUTSIDE RECORDS SUMMARY | ~2019-01-15 | XMS | Encounter Summary ---
Demographics + + + | Address | [address] | | | [place] [address] | + + + | Home Phone [...] Team Providers + +------+ + | Care Cda Teacher Name | Role | Phone | + +------+ + | Juan Cherry DO | PCP | | + +------+ + Reason for Visit +--------+ + | Reason | Comments | +--------+ + | Other | DMSO #2 for Interstitial Cystitis | +--------+ + Encounter Details +--------+ + + + + | Date | Type | Department | Care Team | Description | +--------+ + + + + | 10/31/ | Clinical | [facility] | | Interstitial | | 2015 | Support | [address] | | cystitis (Primary | | | | [place] | | Dx) | | | | [address] | | | | | | [phone] | | | +--------+ + + + [...] encounter Progress Notes Andriy Weber MD - 11/01/2015 8:36 AM Mary is a 50 y.o. female patient of Gabino Cherry, DO being seen today for follow-up after her first DMSO instillation. She did note some improvement for about 24 hours after her insulation, it is more recently had difficulty with initiating her urinary stream. She is not having any significant pain o r urgency however. She does note that the oxybutynin tends to make her drowsy. I have asked her to try to split the Ditropan 5 mg tablets in half, and just take half a ta blet a day. For the time being, I would also like to continue her on her DMSO instillations , since it seems to be helping her cystitis symptoms. REVIEW OF SYSTEMS: No change in review of systems otherwise. PHYSICAL EXAM Vitals: There were no vitals taken for this visit. General: Awake, alert, in no acute distress. Speech is fluent. Appears to be stated age. Lungs: Normal respiratory effort. Abdomen: Soft, nontender. Extremities: Non-edematous. Chronic leg movement present Neuro: Awake, alert, oriented. Psychiatric: Mood and affect are normal. Skin: Warm and dry. DIAGNOSTIC DATA: Urine is completely clear today IMPRESSION: Urethral stenosis, mild Bladder pain and spasm, possible interstitial cystitis Dysfunctional voiding PLAN: DMSO instillation today. I've asked her to cut down her Ditropan to 2.5 mg by mouth daily. She is to return in 2 weeks for repeat DMSO instillation. Rosario is instructed to resume her usual and customary care with her primary care provide r. This document was generated in part using voice recognition software. Although I have atte mpted to edit the content, I have not thoroughly proofread this note, and chalk extruding machine operator erro rs may occur. Nancy Simms C MA - 11/01/2015 8:22 AM PDT Pt. Presents for a DMSO #2 for Interstitial Cystitis. Administrations This Visit dimethyl sulfoxide (RIMSO-50) 50% solution 50 mL Admin Date Action Dose Route Administered By 11/01/2015 Given 50 mL Bladder Instillation Nancy Dalal CMA heparin 10,000 units/mL injection 10,000 Units Admin Date Action Dose Route Administered By 11/01/2015 Given 89812 Units Subcutaneous aNncy Dalal CMA lidocaine 2% injection 20 mL Admin Date Action Dose Route Administered By 11/01/2015 Given 20 mL Infiltration Nancy Dalal CMA sodium bicarbonate 1 mEq/mL injection 10 mEq Admin Date Action Dose Route Administered By 11/01/2015 Given 10 mEq Other Nancy Dalal CMA triamcinolone acetonide (KENALOG-40) 40 mg/mL injection 40 mg Admin Date Action Dose Route Administered By 11/01/2015 Given 40 mg Intramuscular Nancy Dalal CMA documented in this enc ounter Plan of Treatment +--------+---------+ + + + [...] | | | | | | [place] [address] | | | | | | [phone] | | | | | | | | +--------+---------+ + + + documented as of this encounter Procedures + +--------+ + + + | Procedure Name | Priori | Date/Time | Associated Diagnosis | Comments | | | ty | | | | + +--------+ + + + | POCT URINALYSIS, | Routin | 11/01/2015 | Interstitial | Results for this | | AUTO WITH CONF | e | 9:31 AM | cystitis | procedure are in the | | | | PDT | | results section. | + +--------+ + + + documented in this encounter Results POCT Urinalysis Dipstick Automated (11/01/2015 9:31 AM PDT) + + + + + [...] + + + + | Specific | 1.030 | 1.001 - 1.030 | | | | [place], | | | | | | UA, POC | | | | | + + + + + + | Blood, UA, | Negative | Negative | | | | POC | | | | | + + + + + + | pH, UA, POC | 5.0 | 5.0, 6.0, 7.0, | | | | | | 8.0, 5.5, 6.5, | | | | | | 7.5 | | | + + + + + + | Protein, | Trace (A) | Negative | | | | UA, [...] in this encounter Administered Medications + +--------+ +--------+------+---------+ | Medication Order | MAR | Action | Dose | Rate | Site | | | Action | Date | | | | + +--------+ +--------+------+---------+ | dimethyl sulfoxide (RIMSO-50) | Given | 11/07/19 | 50 mLs | | Bladder | | 50% solution 50 mL 50 mL, | | 16 8:52 | | | | | Bladder Instillation, WEEKLY, | | AM PDT | | | | | First dose (after last | | | | | | | modification) on 10/30/15 at | | | | | | | 0900, For 3 doses | | | | | | + +--------+ +--------+------+---------+ +-------+ +--------+---+---------+ | Given | 11/01/19 | 50 mLs | | Bladder | | | 16 9:50 | | | | | | AM PDT | | | | +-------+ +--------+---+---------+ +---+---+ | | | +---+---+ + +-------+ +---------+---+ + | heparin 10,000 units/mL | Given | 11/07/19 | 10,000 | | Other | | injection 10,000 Units 10,000 | | 16 8:56 | Units | | (Comment | | Units, Subcutaneous, WEEKLY, | | AM PDT | | | ) | | First dose (after last | | | | | | | modification) on Fri10/30/15 at | | | | | | | 0900, For 3 doses | | | | | | + +-------+ +---------+---+ + +-------+ +---------+---+ + | Given | 11/01/19 | 10,000 | | Other | | | 16 9:54 | Units | | (Comment | | | AM PDT | | | ) | +-------+ +---------+---+ + +---+---+ | | | +---+---+ + +-------+ +--------+---+ + | lidocaine 2% injection 20 mL | Given | 11/07/19 | 20 mLs | | Other | | 20 mL, Infiltration, WEEKLY, | | 16 8:54 | | | (Comment | | First dose (after last | | AM PDT | | | ) | | modification) on Fri10/30/15 at | | | | | | | 0900, For 3 doses | | | | | | + +-------+ +--------+---+ + +-------+ +--------+---+ + | Given | 11/01/19 | 20 mLs | | Other | | | 16 9:55 | | | (Comment | | | AM PDT | | | ) | +-------+ +--------+---+ + +---+---+ | | | +---+---+ + +-------+ +--------+-------+---------+ | sodium bicarbonate 1 mEq/mL | Given | 11/07/19 | 10 mEq | 600 | Bladder | | injection 10 mEq 10 mEq, Other, | | 16 8:55 | | mL/hr | | | Administer over 1 Minutes, | | AM PDT | | | | | WEEKLY, First dose (after last | | | | | | | modification) on Fri10/30/15 at | | | | | | | 0900, For 3 doses | | | | | | + +-------+ +--------+-------+---------+ +-------+ +--------+-------+---------+ | Given | 11/01/19 | 10 mEq | 600 | Bladder | | | 16 9:56 | | mL/hr | | | | AM PDT | | | | +-------+ +--------+-------+---------+ +---+---+ | | | +---+---+ + +-------+ +-------+---+ + | triamcinolone acetonide | Given | 11/07/19 | 40 mg | | Other | | (KENALOG-40) 40 mg/mL injection | | 16 8:55 | | | (Comment | | 40 mg 40 mg, Intramuscular, | | AM PDT | | | ) | | WEEKLY, First dose (after last | | | | | | | modification) on Fri10/30/15 at | | | | | | | 0900, For 3 doses, Shake well. | | | | | | | Not for IV use., | | | | | | + +-------+ +-------+---+ + +-------+ +-------+---+ + | Given | 11/01/19 | 40 mg | | Other | | | 16 9:59 | | | (Comment | | | AM PDT | | | ) | +-------+ +-------+---+ + +---+---+ | | | +---+---+ documented in this encounter"
--- OUTSIDE RECORDS SUMMARY | ~2019-01-15 | XMS | Encounter Summary ---
Demographics + + + | Address | [address] | | | [place] [address] | + + + | Home Phone [...] + + + | Author | [facility] | | | and [place] | + + + | Organization | [facility] | | [...] Team Providers + +------+ + | Care Maintenance Carpenter Name | Role | Phone | + +------+ + | Juan Cherry DO | PCP | | + +------+ + Encounter Details +--------+ + + + + | Date | Type | Department | Care Team | Description | +--------+ + + + + | 09/09/ | Hospital | [facility] GENERIC IP | Conversion | Pain | | 2015 | Encounter | CONVERSION [address] | Transaction, | | | | | [address] | Provider Unknown | | | | | [place], [place] | [phone] | | | | | [address] | | | | | | [phone] | | | +--------+ + + + [...] | | | | | order to [facility]. | | | | | [...] | | | | send order to [facility] | | | | | | | [facility]. | | | | | | | [...] | | | | | | | ([facility]) | | | | | | [...] | | | | [address] [facility] | | | | | | [address] | | | | | | | | +--------+---------+ + + + | 11/24/ | Office | Cardiology | [place], | | | 2019 | Visit | | SINDHU Erickson [address] | | | | | | [place], | | | | | | [place] [address] | | | | | | [phone] | | | | | | | | +--------+---------+ + + + documented as of this encounter Procedures + +--------+ + + + | Procedure Name | Priori | Date/Time | Associated Diagnosis | Comments | | | ty | | | | + +--------+ + + + | XR CHEST 2 VIEWS | Routin | 06/18/2013 | | Results for this | | | e | 1:12 AM | | procedure are in the | | | | PDT | | results section. | + +--------+ + + + documented in this encounter Results XR Chest 2 Vws (06/18/2013 1:12 AM PDT) + + | Specimen | + + | | + + + + + | Narrative | Performed At | + + + | This is a non-reportable procedure without a radiologist report and | | | is used for image storage only | | + + + + + | Procedure Note | + + | ReedRoger german - 10/09/2018 12:59 AM PDT This is a non-reportable procedure | | without a radiologist report and isused for image storage only | + + documented in this encounter Visit Diagnoses + + | Diagnosis | + + | Pain Generalized pain | + + documented in this encounter"
--- OUTSIDE RECORDS SUMMARY | ~2019-01-15 | XMS | Encounter Summary ---
Demographics + + + | Address | [address] | | | [place] [address] | + + + | Home Phone [...] Team Providers + +------+ + | Care Test Specialist Name | Role | Phone | + +------+ + | Juan Cherry DO | PCP | | + +------+ + Encounter Details +--------+ + + + + | Date | Type | Department | Care Team | Description | +--------+ + + + + | 03/22/ | Hospital | [facility] | Guru Cárdenas, | | | 2013 | Encounter | MED CTR EMERGENCY | MD [address] | | | | | CENTER [address] | [facility] [place] | | | | | [place], [place] | [place] [address] | | | | | [address] | [phone] | | | | | [phone] | | | +--------+ + + + [...] | | | | | order to [facility]. | | | | | + + [...] | | | | send order to [facility] | | | | | | | [facility]. | | | | [...] | | | | | | [place] [address] | | | | | | [phone] | | | | | | | [...] Performed At | + + + | [facility] Diagnostic Imaging | [place] | | Department [facility] | [facility] [facility] | | [ rep [address]] [ rep ct [facility] | | st zip] Signed | - IMAGING | | | | | Patient Name: JADYN SCHMITZ | | | Physician: SANG : 1965 Age: 48 Sex: F Unit | | | #: [id number] Exam Date: 03/22/13 Location: | | | ER Report #: [id number] Page: | | | %(RAD)RES..mtdd.print.filter("pg") of %(RAD) | | | RES..mtdd.print.filter("tpg") | | | | | | Accession Number: [id number] | | | PORTABLE CHEST CLINICAL HISTORY: [...] Transcribed Date/Time: 03/22/2013 08:50 | | | Strategies Analyst: <<Signature on File>> | | | | | | Cesar Ren MD03/22/13 1800 <Electronically signed by | | | Cesar Ren MD> Cesar Ren MD 03/22/13 | | | 0811 Strategies Analyst: [employer] Sgbbwgtxefqon36/27/14 0850 | | | | | + + + + + + + + | Performing | Address | City/State/Zipcode | Phone Number | | Organization | | | | + + + + + | [facility] | [address] | [place] | [phone] | | [facility] | | [address] | | | - IMAGING | | [...] [address] | [place] | [phone] | | [facility] | | [address] | | | - LABORATORY | | | | + + + + + | [facility] | [address] | [place] | | | [facility] | | [address] | | | - LABORATORY | | [...] + | [facility] | [address] | [place] | [phone] | | [facility] | | [address] | | | - LABORATORY | | | | + + + + + | [facility] | [address] | [place] | | | [facility] | | [address] | | | - LABORATORY | | | | + + + + + documented in this encounter Visit Diagnoses Not on filedocumented in this encounter
--- OUTSIDE RECORDS SUMMARY | ~2019-01-15 | XMS | Encounter Summary ---
Demographics + + + | Address | [address] | | | [place] [address] | + + + | Home Phone | | + + + | Preferred Language | Unknown | + + + | Marital Status | Single | + + + | Scientology Affiliation | 1041 | + + + | Race | Unknown | + + + | Ethnic Group | Unknown | + + + Author + + + | Author | [facility] | | | and [place] | + + + | Organization | [facility] | | | [...] Team Providers + +------+ + | Care Cook Soup Name | Role | Phone | + +------+ + | Juan Cherry DO | PCP | | + +------+ + Reason for Visit +--------+ + | Reason | Comments | +--------+ + | Other | | +--------+ + Encounter Details +--------+ + + + + | Date | Type | Department | Care Team | Description | +--------+ + + + + | 05/26/ | Telephone | [facility] [place] | Marilyn Osborne, | Other | | 2012 | | PULMONARY [address] | RN | | | | | [place], | | | | | | [place] [address] | | | | | | [phone] | | | +--------+ + + + [...] | | | | [address] [place] | | | | | | [address] | | | | | | | | +--------+---------+ + + + | 11/24/ | Office | Cardiology | [place], | | | 2019 | Visit | | SINDHU Erickson [address] | | | | | | [place], | | | | | | [place] [address] | | | | | | [phone] | | | | | | | | +--------+---------+ + + + documented as of this encounter Visit Diagnoses Not on filedocumented in this encounter"
--- OUTSIDE RECORDS SUMMARY | ~2019-01-15 | XMS | Encounter Summary ---
Demographics + + + | Address | [address] | | | [place] [address] | + + + | Home Phone | | + + + | Preferred Language | Unknown | + + + | Marital Status | Single | + + + | Amish Affiliation | 1041 | + + + | Race | Unknown | + + + | Ethnic Group | Unknown | + + + Author + + + | Author | [facility] | | | and [place] | + + + | Organization | [facility] | | | [...] Team Providers + +------+ + | Care Vacuum Furnace Operator Name | Role | Phone | + +------+ + | Juan Cherry DO | PCP | | + +------+ + Encounter Details +--------+ + + + + | Date | Type | Department | Care Team | Description | +--------+ + + + + | 04/05/ | Hospital | [facility] | Yesenia Landin | | | 2013 | Encounter | MED CTR EMERGENCY | DO Cipriano Christin [place] | | | | | CENTER [address] | ST [place], [place] | | | | | [place], [place] | [address] | | | | | [address] | | | | | | [phone] | Ozzy Aponte | | | | | | Ozzie Kebede MD | | | | | | [address] | | | | | | [place], [place] | | | | | | [address] | | | | | | | [...] | | | | send order to [facility] | | | | | | | [facility]. | | | | | | | [...] | | (DELTASONE) 10 mg | Daily. Taper. | | | | 4 | | tablet | | [...] [place] | | | | | | [address] | | | | | | | | +--------+---------+ + + + | 11/24/ | Office | Cardiology | [place] | | | 2019 | Visit | | SINDHU Erickson [address] | | | | | | [place], | | | | | | [place] [address] | | | | | | [phone] | | | | | | | | +--------+---------+ + + + documented as of this encounter Procedures + +--------+ + + + | Procedure Name | Priori | Date/Time | Associated Diagnosis | Comments | | | ty | | | | + +--------+ + + + | XR STERNUM 2+ VIEWS | Routin | 04/06/2013 | | Results for this | | | e | 8:45 AM | | procedure are in the | | | | PST | | results section. | + +--------+ + + + | XR CHEST PA AND | Routin | 04/06/2013 | | Results for this | | LATERAL | e | 8:14 AM | | procedure are in the | | | | PST | | results section. | + +--------+ + + + documented in this encounter Results XR Sternum PA and Lateral (04/06/2013 8:45 AM PST) + + | Specimen | + + | | + + + + + | Narrative | Performed At | + + + | [facility] Diagnostic Imaging | [place] | | Department [address] [facility] | [facility] | | [ rep [address]] [ rep [facility] | | st zip] Signed | - IMAGING | | | | | Patient Name: JADYN SCHMITZ | | | Physician: MARY : 1965 Age: 48 Sex: F Unit | | | #: [id number] Exam Date: 04/05/13 Location: | | | ER Report #: [id number] Page: | | | %(RAD)RES..mtdd.print.filter("pg") of %(RAD) | | | RES..mtdd.print.filter("tpg") | | | | | | Accession Number: [id number] | | | TWO VIEWS OF THE STERNUM, 04/05/2013 CLINICAL HISTORY: | | | FELT POP IN STERNUM WHILE TRANSFERRING PATIENT. | | | COMPARISON: Chest radiographs from the same day. | | | FINDINGS: No conclusive sternal abnormality is visible, allowing for | | | superimposed structures and external artifacts positioned | | | anteriorly on the lateral view. The imaged thoracic cage is | | | unremarkable , along with the imaged intrathoracic structures. | | | IMPRESSION: 1. NO CONCLUSIVE STERNAL ABNORMALITY | | | ALLOWING FOR SUPERIMPOSED STRUCTURES DESCRIBED. CONSIDER | | | FOLLOWUP CT IF FURTHER EVALUATION IS DESIRED. Dictated | | | Date/Time: 04/06/2013 08:45 Transcribed Date/Time: 04/06/2013 | | | 08:52 Searchlight Operator: <<Signature | | | on File>> | | | Aditya Alonso | | | MD Claudio04/06/13 2312 <Electronically signed by Aditya Snyder MD> | | | Aditya Snyder MD 04/06/1345 Searchlight Operator: | | | [employer] Buieciorauaqm29/11/14 0852 | | + + + + + + + + | Performing | Address | City/State/[facility] | Phone Number | | Organization | | | | + + + + + | [facility] | [address] | [place] | [phone] | | [facility] | | [address] | | | - IMAGING | | | | + + + + + XR Chest PA and Lateral (04/06/2013 8:14 AM PST) + + | Specimen | + + | | + + + + + | Narrative | Performed At | + + + | [facility] Diagnostic Imaging | [place] | | Department [address] [facility] | [facility] | | [ rep [address]] [ rep [facility] | | [facility]] Signed | - IMAGING | | | | | Patient Name: JADYN SCHMITZ W | | | Physician: MARY : 1965 Age: 48 Sex: F Unit | | | #: [id number] Exam Date: 04/05/13 Location: | | | ER Report #: [id number] Page: | | | %(RAD)RES..mtdd.print.filter("pg") of %(RAD) | | | RES..mtdd.print.filter("tpg") | | | | | | Accession Number: [id number] | | | PA AND LATERAL CHEST: 04/05/2013 CLINICAL HISTORY: | | | FELT POP IN STERNUM WHILE TRANSFERRING PATIENT. | | | COMPARISON: Chest radiograph 03/22/2013 and multiple previous | | | radiographs. FINDINGS: The cardiomediastinal | | | silhouette and pulmonary vasculature are unremarkable. Artifacts | | | projecting external to the patient on the lateral view project over | | | the right lung base on the frontal view. Hazy reticular opacity in | | | the anterior lung bases is unchanged and corresponds with epicardial | | | fat deposition visible on previous CT. The lungs are clear elsewhere, | | | without pneumothorax or pleural effusion. There is mild rightward | | | thoracic curvature. The sternum is not well visualized on the | | | lateral view due to superimposed structures. Bones and soft tissues | | | are otherwise unremarkable. IMPRESSION: 1. NO | | | EVIDENCE OF ACTIVE DISEASE IN THE CHEST. 2. POOR | | | EVALUATION OF THE STERNUM, WHICH IS OBSCURED BY SUPERIMPOSED | | | STRUCTURES. CONSIDER DEDICATED STERNAL RADIOGRAPHS OR CT IF FURTHER | | | EVALUATION IS DESIRED. Dictated Date/Time: 04/06/2013 | | | 08:14 Transcribed Date/Time: 04/06/2013 08:17 | | | Searchlight Operator: <<Signature on File>> | | | | | | Aditya Snyder MD04/06/132 <Electronically signed by Aditya Alonso | | | Claudio PAUL> Aditya Snyder MD 04/06/13813 | | | Searchlight Operator: Neal Fdeeawvsovfzd58/11/14816 | | | | | + + + + + + + + | Performing | Address | City/State/Zipcode | Phone Number | | Organization | | | | + + + + + | [facility] | [address] | [place] | [phone] | | [facility] | | [address] | | | - IMAGING | | | | + + + + + documented in this encounter Visit Diagnoses Not on filedocumented in this encounter
--- OUTSIDE RECORDS SUMMARY | ~2019-01-15 | XMS | Encounter Summary ---
Demographics + + + | Address | [address] | | | [place] [address] | + + + | Home Phone | | + + + | Preferred Language | Unknown | + + + | Marital Status | Single | + + + | Mormon Affiliation | 1041 | + + + [...] Providers + +------+ + | Care Music Adapter Name | Role | Phone | + +------+ + | Juan Cherry DO | PCP | | + +------+ + Encounter Details +--------+ + + + + | Date | Type | Department | Care Team | Description | +--------+ + + + + | 11/12/ | Preadmit | [facility] | Andriy Weber | Preoperative | | 2016 | Visit | [facility] | MD Robert [address] | clearance (Primary | | | | CLINIC [address] | [address] [place] | Dx) | | | | [place] | [place] [address] | | | | | [address] | [phone] | | | | | [phone] | | | +--------+ + + + [...] [place] | | | | | | [address] | | | | | | | | +--------+---------+ + + + | 11/24/ | Office | Cardiology | [place], | | | 2019 | Visit | | SINDHU Erickson [address] | | | | | | [place], | | | | | | [place] [address] | | | | | | [phone] | | | | | | | | +--------+---------+ + + + documented as of this encounter Procedures + +--------+ + + + | Procedure Name | Priori | Date/Time | Associated Diagnosis | Comments | | | ty | | | | + +--------+ + + + | XR CHEST PA AND | Routin | 11/13/2015 | | Results for this | | LATERAL | e | 9:51 AM | | procedure are in the | | | | PDT | | results section. | + +--------+ + + + | PTT | Routin | 11/13/2015 | | Results for this | | | e | 9:38 AM | | procedure are in the | | | | PDT | | results section. | + +--------+ + + + | PROTIME INR | Routin | 11/13/2015 | | Results for this | | | e | 9:38 AM | | procedure are in the | | | | PDT | | results section. | + +--------+ + + + | PLATELET COUNT | Routin | 11/13/2015 | | Results for this | | | e | 9:38 AM | | procedure are in the | | | | PDT | | results section. | + +--------+ + + + | HEMOGLOBIN | Routin | 11/13/2015 | | Results for this | | | e | 9:38 AM | | procedure are in the | | | | PDT | | results section. | + +--------+ + + + | BASIC METABOLIC | Routin | 11/13/2015 | | Results for this | | PANEL | e | 9:38 AM | | procedure are in the | | | | PDT | | results section. | + +--------+ + + + documented in this encounter Results XR Chest PA and Lateral (11/13/2015 9:51 AM PDT) + + | Specimen | + + | | + + + + + | Narrative | Performed At | + + + | PA AND LATERAL CHEST 11/13/2015 9:51 AM CLINICAL HISTORY: preop | [facility] | | clearance COMPARISON: CT abdomen and chest radiograph April 12 | | | and multiple previous radiographs FINDINGS: The cardiomediastinal | | | silhouette and pulmonary vasculature are unremarkable. Hazy | | | reticular opacity at the anterior left base is more pronounced | | | laterally on the frontal view. The lungs are clear elsewhere, | | | without pneumothorax or pleural effusion. The bones and soft tissues | | | are unremarkable. IMPRESSION - 1. MORE PRONOUNCED HAZY | | | RETICULAR OPACITY AT THE LATERAL LEFT BASE, POSSIBLY REFLECTING | | | ATELECTASIS OR DEVELOPING INFILTRATE SUPERIMPOSED ON EPICARDIAL FAT. | | | CONSIDER INTERVAL RADIOGRAPHIC FOLLOW-UP. Dictated and Signed by: | | | Aditya Snyder MD Electronically signed: 11/13/2015 12:14 PM | | + + + + + | Procedure Note | + + | Reed, Rad Results In - 11/13/2015 12:17 PM PDT PA AND LATERAL CHEST 11/13/2015 9:51 AM | | | | CLINICAL HISTORY: preop clearance | | | | COMPARISON: CT abdomen and chest radiograph April 12 and multiple previous | | radiographs | | | | FINDINGS: The cardiomediastinal silhouette and pulmonary vasculature are | | unremarkable. Hazy reticular opacity at the anterior left base is more | | pronounced laterally on the frontal view. The lungs are clear elsewhere, | | without pneumothorax or pleural effusion. The bones and soft tissues are | | unremarkable. | | | | IMPRESSION - | | | | 1. MORE PRONOUNCED HAZY RETICULAR OPACITY AT THE LATERAL LEFT BASE, POSSIBLY | | REFLECTING ATELECTASIS OR DEVELOPING INFILTRATE SUPERIMPOSED ON EPICARDIAL FAT. | | CONSIDER INTERVAL RADIOGRAPHIC FOLLOW-UP. | | | | Dictated and Signed by: Aditya Snyder MD | | Electronically signed: 11/13/2015 12:14 PM | + + + +---------+ + + | Performing | Address | City/State/Zipcode | Phone Number | | Organization | | | | + +---------+ + + | [facility] | | | | + +---------+ + + Hemoglobin (11/13/2015 9:38 AM PDT) + +-------+ + + + | Component | Value | Ref Range | Performed | Pathologist | | | | | At | Signature | + +-------+ + + + | Hemoglobin | 14.1 | 11.5 - 16.0 | [facility] | [...] + | [facility] | [address] | [place] | [phone] | | [facility] | | [address] | | | - LABORATORY | | | | + + + + + Platelet Count (11/13/2015 9:38 AM PDT) + +-------+ + + + | Component | Value | Ref Range | Performed | Pathologist | | | | | At | Signature | + +-------+ + + + | Platelet | 362 | 140 - 440 K/uL | [facility] | | | Count | | | [facility] | | | | | | [facility]ICAL | | | | | | CENTER - | | | | | | LABORATORY | | + +-------+ + + + | MPV | 7.3 | fL | [facility] | | | | | | [facility] | [address] | [place] | [phone] | | [facility] | | [address] | | | - LABORATORY | | | | + + + + + PTT (11/13/2015 9:38 AM PDT) + +-------+ + + + | Component | Value | Ref Range | Performed | Pathologist | | | | | At | Signature | + +-------+ + + + | aPTT | 29 | 22 - 36 seconds | [facility] | | | | | | [facility] [...] + + | [facility] | [address] | [place] | [phone] | | [facility] | | [address] | | | - LABORATORY | | | | + + + + + Protime INR (11/13/2015 9:38 AM PDT) + + + + + + | Component | Value | Ref Range | Performed | Pathologist | | | | | At | Signature | + + + + + + | Prothrombin | 12.7 | 11.3 - 13.9 | [facility] | | | Time | | seconds | [facility] | | | | | | MEDICAL | | | | | | CENTER - | | | | | | LABORATORY | | + + + + + + | INR | 0.91Comment: Usual Oral | 0.90 - 1.10 | [facility] | | | | Anticoagulation Range: | | [facility] | | | | 2.0 - 3.0High | | MEDICAL | | | | Level Oral | | CENTER - | | | | Anticoagulation Range: | | LABORATORY | | | | 2.5 - 3.5 | | | | + + + + + + + + | Specimen | + + | Blood | + + + + + + + | Performing | Address | City/State/Zipcode | Phone Number | | Organization | | | | + + + + + | [facility] | [address] | [place] | [phone] | | [facility] | | [address] | | | - LABORATORY | | | | + + + + + Basic Metabolic Panel (11/13/2015 9:38 AM PDT) + + + + + + | Component | Value | Ref Range | Performed | Pathologist | | | | | At | Signature | + + + + + + | Na | 144 | 136 - 149 | [facility] | | | | | mmol/L | [facility] | | | | | | MEDICAL | | | | | | CENTER - | | | | | | LABORATORY | | + + + + + + | K | 4.3 | 3.5 - 5.1 | [facility] | | | | | mmol/L | [facility] | | | | | | MEDICAL | | | | | | CENTER - | | | | | | LABORATORY | | + + + + + + | Cl | 108 | 98 - 109 mmol/L | [facility] | | | | | | [facility] | | | | | | MEDICAL | | | | | | CENTER - | | | | | | LABORATORY | | + + + + + + | CO2 | 25 | 24 - 31 mmol/L | [facility] | | | | | | [facility] | | | | | | MEDICAL | | | | | | CENTER - | | | | | | LABORATORY | | + + + + + + | Anion Gap | 11 | 3 - 16 mmol/L | [facility] | | | | | | [facility] | | | | | | MEDICAL | | | | | | CENTER - | | | | | | LABORATORY | | + + + + + + | Glucose | 101 | 70 - 109 mg/dL | [facility] | | | | | | [facility] | | | | | | MEDICAL | | | | | | CENTER - | | | | | | LABORATORY | | + + + + + + | BUN | 12 | 7 - 18 mg/dL | [facility] | | | | | | [facility] | | | | | | MEDICAL | | | | | | CENTER - | | | | | | LABORATORY | | + + + + + + | Creatinine | 0.84 | 0.60 - 1.30 | [facility] | | | | | mg/dL | [facility] | | | | | | MEDICAL | | | | | | CENTER - | | | | | | LABORATORY | | + + + + + + | eGFR if not | >60Comment: GLOMERULAR | >=60 | [facility] | | | | FILTRATION | mL/min/1.73m2 | [facility] | | | [place] | RATE,ESTIMATED | | MEDICAL | | | | mL/min/1.32q0Jthl than | | CENTER - | | | | 60 Chronic kidney | | LABORATORY | | | | disease,if found over a | | | | | | 3-month period.Less than | | | | | | 15 Kidney failureFor | | | | | | | | | | | | Americans,multiply the | | | | | | calculated GFR by 1.21. | | | | | | | | | | + + + + + + | Calcium | 9.7 | 8.3 - 10.5 | [facility] | | | | | mg/dL | [facility] | | | | | | MEDICAL | | | | | | CENTER - | | | | | | LABORATORY | | + + + + + + | BUN/Creatin | 14.3 | | [facility] | | | ine [...] + + + + + | [facility] | [address] | [place] | [phone] | | [facility] | | [address] | | | - LABORATORY | | | | + + + + + documented in this encounter Visit Diagnoses + + | Diagnosis | + + | Preoperative clearance - Primary Preoperative examination, unspecified | + + documented in this encounter"
--- OUTSIDE RECORDS SUMMARY | ~2019-01-15 | XMS | Encounter Summary ---
Demographics + + + | Address | [address] | | | [place] [address] | + + + | Home Phone | | + + + | Preferred Language | Unknown | + + + | Marital Status | Single | + + + | Mandaeism Affiliation | 1041 | + + + | Race | Unknown | + + + | Ethnic Group | Unknown | + + + Author + + + | Author | [facility] | | | and [place] | + + + | Organization | [facility] | | | [...] Team Providers + +------+ + | Care Bull Gang Worker Name | Role | Phone | + +------+ + | Juan Cherry DO | PCP | | + +------+ + Encounter Details +--------+ + + + + | Date | Type | Department | Care Team | Description | +--------+ + + + + | 06/11/ | Documentati | [facility] | Lakeshia Cleary, | | | 2017 | on | MED [facility] THERAPY PT | PT [address] | | | | | OP [address] | [place], [place] | | | | | [place], [place] | [address] | | | | | [address] | | | | | | [phone] | | | +--------+ + + + [...] + documented as of this encounter Progress Lakeshia Watson PT - 06/11/2016 10:[address] [facility] [address] [facility] [address] Cancellation/No Show Date: 06/11/2016 Patient Information Patient Name: Rosario Malik Date of : 1965 Age: 51 y.o. Reason for missed visit: Called to cancel due to illness Phone call placed: no Plan: Cont with POC (2 more appts) Electronically signed by: Lakeshia Barkley PT, 06/11/2016 10:11 Patient Name: Rosario Malik/: 1965/ documented in this [facility] Plan of Treatment +--------+---------+ + + + | Date | Type | Specialty | Care Team | Description | +--------+---------+ + + + | 03/01/ | Office | Pulmonology | Mukul Clark MD | | | 2019 | Visit | | [address] | | | | | | [place] | | | | | | [address] | | | | | | | | +--------+---------+ + + + | 11/24/ | Office | Cardiology | [place], | | | 2019 | Visit | | SINDHU Erickson [address] | | | | | | [place], | | | | | | [place] [address] | | | | | | [phone] | | | | | | | | +--------+---------+ + + + documented as of this encounter Visit Diagnoses Not on filedocumented in this encounter"
--- OUTSIDE RECORDS SUMMARY | ~2019-01-15 | XMS | Encounter Summary ---
Demographics + + + | Address | [address] | | | [place] [address] | + + + | Home Phone | | + + + | Preferred Language | Unknown | + + + | Marital Status | Single | + + + | Jewish Affiliation | 1041 | + + + | Race | Unknown | + + + | Ethnic Group | Unknown | + + + Author + + + | Author | [facility] | | | and [place] | + + + | Organization | [facility] | | [...] Team Providers + +------+ + | Care Information Systems Technician Name | Role | Phone | + +------+ + PCP | Unavailable | + +------+ + Encounter Details +--------+ + + + + | Date | Type | Department | Care Team | Description | +--------+ + + + + | 01/23/ | Hospital | [facility] | Ozzy Delcid, | | | 2009 | Encounter | MED CTR XRAY [address] | [address] | | | | | [place] | [place], [place] | | | | | [place] [address] | [address] | | | | | [phone] | | | +--------+ + + + [...] [place] | | | | | | [address] | | | | | | | | +--------+---------+ + + + | 11/24/ | Office | Cardiology | [place], | | | 2019 | Visit | | SINDHU Erickson [address] | | | | | | [place], | | | | | | [place] [address] | | | | | | [phone] | | | | | | | | +--------+---------+ + + + documented as of this encounter Visit Diagnoses Not on filedocumented in this encounter"
--- OUTSIDE RECORDS SUMMARY | ~2019-01-15 | XMS | Encounter Summary ---
Demographics + + + | Address | [address] | | | [place] [address] | + + + | Home Phone | | + + + | Preferred Language | Unknown | + + + | Marital Status | Single | + + + | Restorationism Affiliation | 1041 | + + + | Race | Unknown | + + + | Ethnic Group | Unknown | + + + Author + + + | Author | [facility] | | | and [place] | + + + | Organization | [facility] | [...] Providers + +------+ + | Care Information Technology Specialist Name | Role | Phone | + +------+ + PCP | Unavailable | + +------+ + Encounter Details +--------+ + + + + | Date | Type | Department | Care Team | Description | +--------+ + + + + | 02/27/ | Hospital | [facility] | Ozzy Delcid, | | | 2010 | Encounter | MED CTR XRAY [address] | [address] | | | | | [place] | [place], [place] | | | | | [place] [address] | [address] | | | | | [phone] | | | +--------+ + + + [...] [place] | | | | | | [address] | | | | | | | | +--------+---------+ + + + | 11/24/ | Office | Cardiology | [place], | | | 2019 | Visit | | SINDHU Erickson [address] | | | | | | [place], | | | | | | [place] [address] | | | | | | [phone] | | | | | | | | +--------+---------+ + + + documented as of this encounter Visit Diagnoses Not on filedocumented in this encounter"
--- OUTSIDE RECORDS SUMMARY | ~2019-01-15 | XMS | Encounter Summary ---
Demographics + + + | Address | [address] | | | [place] [address] | + + + | Home Phone | | + + + | Preferred Language | Unknown | + + + | Marital Status | Single | + + + | Pentecostal Affiliation | 1041 | + + + | Race | Unknown | + + + | Ethnic Group | Unknown | + + + Author + + + | Author | [facility] | | | and [place] | + + + | Organization | [facility] | | | [...] Team Providers + +------+ + | Care Pumper Brewery Name | Role | Phone | + [...] | Concussion | Aaron Kim MD | Program Control Analyst [address] | | | Required | | with brief | [address] | [place] | | | | | loss of | [address] | [place], [place] | | | | | consciousnes | [place], | [address] | | | | | s Word | [place] [address] | Phone: | | | | | finding | Phone: | [phone] | | | | | difficulty | [phone] | Fax: | | | | | S06.0X9A | Fax: | [phone] | | | | | (ICD-10-CM) | [phone] | | | | | | - [...] | +--------+ + + + + | 05/23/ | Hospital | [facility] | Aaron Rodriguez, | Concussion with | | 2017 | Encounter | MED CTR SPEECH | MD [address] | brief (less than one | | | | THERAPY [address] | [place], [place] | hour) loss of | | | | [place], | [address] | consciousness | | | | [place] [address] | | (Primary Dx); | | | | [phone] | Kathi Soto, | Impaired memory; | | | | | Speech Pathologist | Visuospatial | | | | | | deficit; Word | | | | | | finding difficulty | +--------+ + + + + [...] | | | | | order to [facility]. | | | | | + [...] | | | | send order to [facility] | | | | | | | [facility]. | | | | | | | [...] | | | | | | [facility] | | | | | | + + + +---------+ + + | | Take 1 capsule by | | 0 | 10/13/19 | | | [id number] | mouth as needed. | | | 16 | 7 | | -Cod [id number] MG | | | | | | [...] | | | | | | ([facility]) | | | | | | + + + +---------+ + + | hydrOXYzine | Take 1 tablet by | 30 | 6 | 12/19/19 | | | hydrochloride | mouth nightly. | tablet | | 16 | 7 | | (ATARAX) 25 mg [...] as of this encounter Progress Notes Kathi Soto, Speech Pathologist - 05/23/2016 7:06 PM PDT [facility] [address] [facility] [address] Speech Therapy Daily Treatment Note Date: 05/23/2016 Patient Information Patient Name: Rosario Malik Date of : 1965 Age: 51 y.o. Encounter Diagnoses Code Name Primary? S06.0X9A Concussion with brief (less than one hour) loss of consciousness Yes R41.3 Impaired memory R41.842 Visuospatial deficit R47.89 Word finding difficulty Date of Onset: 03/15/2016 Referring Provider: Aaron Rodriguez MD Rehab Precautions Office Visit from 05/01/2016 in [facility] THERAPY PT OP Rehab Precautions Precautions None Rehab Learning Style [facility] ACTIVE DIRECTORY SPECIALIST OP EVAL from 05/16/2016 in [facility] SPEECH THERAPY Office V isit from 05/01/2016 in [facility] THERAPY PT OP Learning Style Patient's Optimum Learning Style observation, performance of task listening, reading, ob servation, performance of task Today's Treatment Start Time: 1115 Stop time: 1200 Duration: 45 minutes Timed Treatment Codes: minutes # of Speech Visits to Date: 2 Pain Assessment: Pain Scale Used: NUMERIC Pain Rating Pre Assessment: 0 Subjective:Pt arrived to with portable O2 with NC in place. Pt reports increased fatigue following PT today. Agreeable and motivated throughout. Objective/Assessment: Targeted word finding with opposite identification x 5/5 with min verbal cues. Divergent thinking x10/10 with extra-time and concrete categories Visuospatial/word finding/switching attention with Spot-it -- needs extra time, no paraphas ias noted, able to switch attention quickly with f:2, requires increased time with f:4 Established packet for HEP, and memory strategies handout. Plan: Target immediate recall with list learning and story recall. Electronically signed by: Kathi Soto SPEECH PATHO, 05/23/2016 19:12 Patient Name: Rosario Malik/: 1965/ docum ented in this encounter Plan of Treatment +--------+---------+ + + + | Date | Type | Specialty | Care Team | Description | +--------+---------+ + + + | 03/01/ | Office | Pulmonology | Mukul Clark MD | | | 2019 | Visit | | [address] | | | | | | [place], [place] | | | | | | [address] | | | | | | | | +--------+---------+ + + + | 11/24/ | Office | Cardiology | [place], | | | 2019 | Visit | | GeorginaSINDHU [address] | | | | | | [place], | | | | | | [place] [address] | | | | | | [phone] | | | | | | | | +--------+---------+ + + + documented as of this encounter Visit Diagnoses + + | Diagnosis | + + | Concussion with brief (less than one hour) loss of consciousness - Primary Concussion | | with loss of consciousness from 31 to 59 minutes | + + | Impaired memory Memory loss | + + | Visuospatial deficit | + + | Word finding difficulty Other speech disturbance | + + documented in this encounter"
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
--- OUTSIDE RECORDS SUMMARY | ~2019-01-15 | XMS | Encounter Summary ---
Demographics + + + | Address | [address] | | | [place] [address] | + + + | Home Phone | | + + + | Preferred Language | Unknown | + + + | Marital Status | Single | + + + | Mandaen Affiliation | [id number] | + + + | Race | Unknown | + + + | Ethnic Group | Unknown | + + + Author + + + | Author | [facility] | | | and [place] | + + + | Organization | [facility] | | | [...] Team Providers + +------+ + | Care Professional Skater Name | Role | Phone | + +------+ + | Juan Cherry DO | PCP | | + +------+ + Reason for Visit + + + | Reason | Comments | + + + | Lab Order | due for fasting labs | + + + Encounter Details +--------+ + + + + | Date | Type | Department | Care Team | Description | +--------+ + + + + | 08/01/ | Telephone | [facility] [place] | [place], | Lab Order (due for | | 2015 | | CARDIOLOGY [address] | SIND[address] Erickson [address] | fasting labs) | | | | [place], | [place], | | | | | [place] [address] | [place] [address] | | | | | [phone] | [phone] | | | | | | | [...] [place] | | | | | | [id number] | | | | | | | | +--------+---------+ + + + | 11/24/ | Office | Cardiology | [place], | | | 2019 | Visit | | SINDHU Erickson [address] | | | | | | [place], | | | | | | [place] [address] | | | | | | [phone] | | | | | | | | +--------+---------+ + + + + +------+--------+ + + | Name | Type | Priori | Associated Diagnoses | Order Schedule | | | | ty | | | + +------+--------+ + + | Lipid Panel | Lab | Routin | Paroxysmal atrial | Expected: | | | | e | tachycardia (HCC) | 08/02/2015, Expires: | | | | | Encounter for lipid | 08/01/2016 | | | | | screening for | | | | | | cardiovascular | | | | | | disease | | + +------+--------+ + + documented as of this encounter Visit Diagnoses + + | Diagnosis | + + | Paroxysmal atrial tachycardia (HCC) - Primary Paroxysmal supraventricular tachycardia | + + | Encounter for lipid screening for cardiovascular disease | + + documented in this encounter"
--- OUTSIDE RECORDS SUMMARY | ~2019-01-15 | XMS | Encounter Summary ---
Demographics + + + | Address | [address] | | | [place] [address] | + + + | Home Phone | | + + + | Preferred Language | Unknown | + + + | Marital Status | Single | + + + | Sabianist Affiliation | [id number] | + + + [...] Team Providers + +------+ + | Care Exercise Rider Name | Role | Phone | + [...] Description | +--------+--------+ + + + | 12/17/ | Refill | [facility] | Andriy Weber | Medication Refill | | 2015 | | [address] | [address] | | | | | [place] | [address] [facility] | | | | | [address] | [place] [address] | | | | | [phone] | [phone] | | | | | | | [...] [place] | | | | | | [address] | | | | | | | | +--------+---------+ + + + | 11/24/ | Office | Cardiology | [place], | | | 2019 | Visit | | SINDHU Erickson [address] | | | | | | [place], | | | | | | [place] [address] | | | | | | [phone] | | | | | | | | +--------+---------+ + + + documented as of this encounter Visit Diagnoses Not on filedocumented in this encounter"
--- OUTSIDE RECORDS SUMMARY | ~2019-01-15 | XMS | Encounter Summary ---
Demographics + + + | Address | [address] | | | [place] [address] | + + + | Home Phone | | + + + | Preferred Language | Unknown | + + + | Marital Status | Single | + + + | Anabaptism Affiliation | [id number] | + + + [...] Team Providers + +------+ + | Care Nailhead Puncher Name | Role | Phone | + +------+ + PCP | Unavailable | + +------+ + Encounter Details +--------+ + + + + | Date | Type | Department | Care Team | Description | +--------+ + + + + | 01/23/ | Hospital | [facility] | Ozzy Delcid, | | | 2009 | Encounter | MED CTR XRAY [address] | [address] | | | | | [place] | [place], [place] | | | | | [place] [address] | [address] | | | | | [phone] | | | +--------+ + + + [...] [place] | | | | | | [address] | | | | | | | | +--------+---------+ + + + | 11/24/ | Office | Cardiology | [place], | | | 2019 | Visit | | SINDHU Erickson [address] | | | | | | [place], | | | | | | [place] [address] | | | | | | [phone] | | | | | | | | +--------+---------+ + + + documented as of this encounter Visit Diagnoses Not on filedocumented in this encounter"
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
--- OUTSIDE RECORDS SUMMARY | ~2019-01-15 | XMS | Encounter Summary ---
Demographics + + + | Address | [address] | | | [place] [address] | + + + | Home Phone [...] + + + | Author | [facility] | | | and [place] | + + + | Organization | [facility] | | [...] Team Providers + +------+ + | Care Damage Cutter Name | Role | Phone | + +------+ + PCP | Unavailable | + +------+ + Encounter Details +--------+ + + + + | Date | Type | Department | Care Team | Description | +--------+ + + + + | 12/29/ | [facility] | [facility] | | | | 2008 - | Encounter | MED CTR OP REHAB | | | | | | [address] | | | | 01/23/ | | [place] [address] | | | | 2008 | | [phone] | | | +--------+ + + + [...] [place] | | | | | | [address] | | | | | | | | +--------+---------+ + + + | 11/24/ | Office | Cardiology | [place], | | | 2020 | Visit | | SINDHU Erickson [address] | | | | | | [place], | | | | | | [place] [address] | | | | | | [phone] | | | | | | | | +--------+---------+ + + + documented as of this encounter Visit Diagnoses Not on filedocumented in this encounter"
--- OUTSIDE RECORDS SUMMARY | ~2019-01-15 | XMS | Encounter Summary ---
Demographics + + + | Address | [address] | | | [place] [address] | + + + | Home Phone | | + + + | Preferred Language | Unknown | + + + | Marital Status | Single | + + + | Sikhism Affiliation | [id number] | + + + | Race | Unknown | + + + | Ethnic Group | Unknown | + + + Author + + + | Author | [facility] | | | and [place] | + + + | Organization | [facility] | | | [...] Providers + +------+ + | Care Insurance Claims Specialist Name | Role | Phone | + +------+ + | Juan Cherry DO | PCP | | + +------+ + Encounter Details +--------+ + + + + | Date | Type | Department | Care Team | Description | +--------+ + + + + | 04/02/ | Hospital | [facility] | Dio Yun | | | 2017 | Encounter | MED CTR NUCLEAR | MD [address] | | | | | MEDICINE [address] | [place] | | | | | [facility], | [place], [place] | | | | | [place] [address] | [address] | | | | | [phone] | [phone] | | | | | | | [...] | | | | | order to [facility]. | | | | | + [...] | | | | send order to [facility] | | | | | | | [facility]. | | | | | | [...] | | | | | | | ([facility]) | | | | | | + + + +---------+ + + | B-D 3CC LUER-UYEN | | | 0 | 09/13/19 | | | SYR 25GX1/2" 25G X | | | | 16 | 7 | | 1-02/25" 3 ML MISC | | | | | | + + + +---------+ + + | | Take 1 capsule by | | 0 | 10/13/19 | | | Zwxhhromlh-CDZE-Zdwu | mouth as needed. | | | 16 | 7 | | -Cod [id number] MG | | | | | | | CAPS | | | | | | + + + +---------+ + + | dexamethasone | Pt was prescribed | | 3 | 08/31/19 | | | (DECADRON) 4 mg/mL | this but doesn't | | | 16 | 7 | | injection | have the materials | | | | | | | to use it | | | | | + + [...] | | | | | | | ([facility]) | | | | | | + + + +---------+ + + | | Take 1 tablet by | 30 | 0 | 11/22/19 | | | HYDROcodone-acetamin | mouth every 6 hours | tablet | | 16 | 7 | | ophen (NORCO) 5-325 | as needed for Pain. | [...] + + + +---------+ + + | traZODone | 1/2 to 1 tablet by | 30 | 0 | 03/28/19 | | | (DESYREL) 50 mg | mouth at bedtime | tablet | | 17 | 7 | | tablet | | | | | | + + + +---------+ + + | UNABLE TO FIND | Med Name: BIPAP Use | | 0 | | | | | at bedtime | | | | 7 | + + + +---------+ [...] [place], | | | | | | [place] [address] | | | | | | [phone] | | | | | | | | +--------+---------+ + + + documented as of this encounter Procedures + +--------+ + + + | Procedure Name | Priori | Date/Time | Associated Diagnosis | Comments | | | ty | | | | + +--------+ + + + | NM GASTRIC EMPTYING | Routin | 04/02/2016 | Gastroesophageal | Results for this | | | e | 10:50 AM | reflux disease, | procedure are in the | | | | PST | esophagitis presence | results section. | | | | | not specified | | + +--------+ + + + documented in this encounter Results NM Gastric Emptying (04/02/2016 10:50 AM PST) + + | Specimen | + + | | + + + + + | Narrative | Performed At | + + + | NUCLEAR GASTRIC EMPTYING STUDY 04/02/2016 8:44 AM CLINICAL | [facility] | | HISTORY: gerd COMPARISON: UPPER GI FEBRUARY 26 TECHNIQUE: | | | Following oral ingestion of 1.0 mCi technetium 99m sulfur colloid | | | within an egg, planar scintigraphy of the upper abdomen is performed | | | immediately and hourly for two hours. Region of interest analysis | | | is utilized to calculate gastric retention values. FINDINGS: | | | Activity initially present in the stomach passes into bowel over the | | | course of the exam. Rapid gastric emptying is apparent, with only | | | 11.7% retained activity in the stomach at one hour, and 1% retained | | | at two hours. IMPRESSION - 1. RAPID GASTRIC EMPTYING. | | | Dictated and Signed by: Aditya Snyder MD Electronically signed: | | | 04/02/2016 11:35 AM | | + + + + + | Procedure Note | + + | Reed, Rad Results In - 04/02/2016 11:38 AM PST NUCLEAR GASTRIC EMPTYING STUDY 04/02/2016 | | 8:44 AMCLINICAL HISTORY: gerdCOMPARISON: UPPER GI FEBRUARY 3TECHNIQUE: Following oral | | ingestion of 1.0 mCi technetium 99m sulfur colloidwithin an egg, planar scintigraphy of | | the upper abdomen is performed immediatelyand hourly for two hours. Region of interest | | analysis is utilized to calculategastric retention values.FINDINGS: Activity initially | | present in the stomach passes into bowel over thecourse of the exam. Rapid gastric | | emptying is apparent, with only 11.7%retained activity in the stomach at one hour, and | | 1% retained at two hours.IMPRESSION -1. RAPID GASTRIC EMPTYING.Dictated and Signed by: | | Aditya Snyder MD Electronically signed: 04/02/2016 11:35 AM | |gastric retention values. | | | |FINDINGS: Activity initially present in the stomach passes into bowel over the | |course of the exam. Rapid gastric emptying is apparent, with only 11.7% | |retained activity in the stomach at one hour, and 1% retained at two hours. | | | |IMPRESSION - | |1. RAPID GASTRIC EMPTYING. | | | |Dictated and Signed by: Aditya Snyder MD | | Electronically signed: 04/02/2016 11:35 AM | + + + +---------+ + + | Performing | Address | City/State[facility] | Phone Number | | Organization | | | | + +---------+ + + | [facility] | | | | + +---------+ + + documented in this encounter Visit Diagnoses Not on filedocumented in this encounter
--- OUTSIDE RECORDS SUMMARY | ~2019-01-15 | XMS | Encounter Summary ---
Demographics + + + | Address | [address] | | | [place] [address] | + + + | Home Phone [...] Team Providers + +------+ + | Care Customer Development Representative Name | Role | Phone [...] + + | 11/11/ | Telephone | [facility] | Shashi Segovia | Results | | 2013 | | NEUROLOGY [place] | MD Miryam Need updated | | | | | [address], | address | | | | | [address] [place] | | | | | | [place] [address] | | | | | | [phone] | | | +--------+ + + + [...] [place] | | | | | | [address] | | | | | | | | +--------+---------+ + + + | 11/24/ | Office | Cardiology | [place], | | | 2019 | Visit | | SINDHU Erickson [address] | | | | | | [place], | | | | | | [place] [address] | | | | | | [phone] | | | | | | | | +--------+---------+ + + + documented as of this encounter Visit Diagnoses Not on filedocumented in this encounter"
--- OUTSIDE RECORDS SUMMARY | ~2019-01-15 | XMS | Encounter Summary ---
Demographics + + + | Address | [address] | | | [place] [address] | + + + | Home Phone [...] + + + | Author | [facility] | | | and [place] | + + + | Organization | [facility] | | | [...] Team Providers + +------+ + | Care American Sign Language Teacher Name | Role | Phone | + +------+ + | Juan Cherry DO | PCP | | + +------+ + Reason for Visit + + + | Reason | Comments | + + + | Follow-up | GARRY | + + + Encounter Details +--------+---------+ + + + | Date | Type | Department | Care Team | Description | +--------+---------+ + + + | 08/10/ | Office | [facility] | [place], | COPD exacerbation | | 2012 | Visit | PULMONARY [address] | Loreta Alonso MD | ([facility]) (Primary Dx); | | | | [place], | | GARRY on CPAP; Tobacco | | | | [place] [address] | | abuse | | | | [phone] | | | +--------+---------+ + + + [...] + +---+---+---+ + + | Tobacco Cessation: Ready to Quit: Yes; Counseling Given: Yes | + + + [...] + + + | Blood Pressure | 122/62 | 08/10/2012 1:04 PM | | | | | PDT | | + + + + + | Pulse | 88 | 08/10/2012 1:04 PM | | | | | PDT | | + + + + + | Temperature | - | - | | + + + + + | Respiratory Rate | - | - | | + + + + + | Oxygen Saturation | 94% | 08/10/2012 1:04 PM | | | | | PDT | | + + + + + | Inhaled Oxygen | - | - | | | Concentration | | | | + + + + + | Weight | 60.8 kg (134 lb) | 08/10/2012 1:04 PM | | | | | PDT | | + + + + + | Height | 157.5 cm (5' 2") | 08/10/2012 1:04 PM | | | | | PDT | | + + + + + | Body Mass Index | 24.51 | 08/10/2012 1:04 PM | | | | | PDT | | + + + + + documented in this encounter Patient Instructions Patient Instructions Loreta London MD - 08/10/2012 1:34 PM PDTTake antibiotics an d prednisone. Nebulizer refilled. Take CPAP machine in and have reset. Bring download to next appt. documented in this encounter Progress Notes Loreta London MD - 08/10/2012 1:09 PM PDTFormatting of this note might be differe nt from the original. Pulmonary Follow Up Note HPI Rosario Malik is a 47 y.o. female patient of Juan Cherry here today for an acute v isit for COPD. She notes that she is having increased problems with her breathing. She notes that this has been going on for about a month. She has been using her Advair twice a day. She notes that she is having to use her nebulizer once to twice a day right now. She has had to use it a co uple of times in a row a couple of times. She is using her Combivent at least six times a da y. She has been using her CPAP regularly, and has rarely woken up short of breath. She notes i t has happened a couple of times at four o'clock. She is coughing more, with a lot of gooey stuff coming up. Her mucous is white and clear in color. She is not having any nasal congestion or drainage. She quit smoking today, but she notes she is done after today. She is moving to [place] in August. Past Medical History Past Medical History Diagnosis Date Hypothyroidism Diverticulitis Depression Anxiety GERD (gastroesophageal reflux disease) COPD (chronic obstructive pulmonary disease) Fibromyalgia Osteoarthritis [...] not cancer Colonoscopy 03/2010 Colonoscopy: 1995 at [facility] Social History: History Social History Marital Status: Single Spouse Name: N/A Number of Children: 1 Years of Education: 13 Occupational History [employer] Social History Main Topics Smoking status: [...] cysts bilaterally. XRay Chest, 2 view: 02/27/10- 1. Emphysematous chronic obstructive pulmonary disease. No acute cardiopulmonary abnormality. Allergies: Allergies Allergen Reactions Erythromycin Base Food Meperidine Nsaids Onion Extract Pork Allergy Medications: Outpatient Encounter Prescriptions as of 08/10/2012 Medication Sig Dispense Refill albuterol 2.5 mg/3 mL nebulizer solution Take 3 mLs by nebulization every 6 hours as ne eded for Wheezing. 75 mL 0 albuterol-ipratropium (COMBIVENT) 103-18 mcg/puff inhaler 2 puffs inhaled every 4 hours as needed for shortness of breath Cholecalciferol (VITAMIN D3) 2000 UNITS CAPS Take by mouth Daily. DULoxetine (CYMBALTA) 60 MG capsule Take one by mouth daily fluticasone-salmeterol (ADVAIR DISKUS) 500-50 mcg/puff diskus inhaler inhale 1 puff by mouth twice daily gabapentin (NEURONTIN) 800 MG tablet Take 800 mg by mouth 3 times daily. levothyroxine (LEVOXYL) 112 mcg tablet Take 50 mcg by mouth Daily. Multiple Vitamins-Minerals (MULTIVITAMIN PO) Take by mouth Daily. Respiratory Therapy Supplies MISC CPAP 13 cm H2O. All necessary supplies. No oxygen ble ed in. Diagnosis Code(s)327.23. Length of Need: Lifetime. Please send order to [facility]. This is not a new order, just a change in settings. 1 each 99 traMADol (ULTRAM) 50 mg tablet Take 50 mg by mouth 4 times daily. ziprasidone (GEODON) 80 MG capsule Take 80 mg by mouth 2 times daily. Review of Systems Constitutional: Denies fever. Has gained 4 1/2 pounds. Has been having a lot of sweats an d chills. Sleep: Has had some increase in fatigue. Using CPAP very regularly. Sleep schedule remains very irregular. Eyes: Denies vision change and eye irritation. ENT: Denies earache, decreased hearing, nosebleeds, sore throat. Has had hoarseness. Resp: See HPI. CV: Denies chest pain, palpitations, syncope, and peripheral edema. GI: Denies nausea, vomiting, and abdominal pain. Has had heartburn, worse than before. : Having some issues urinating. No pain with urination. Objective BP 122/62 | Pulse 88 | Ht 1.575 m (5' 2") | Wt 60.782 kg (134 lb) | BMI 24.51 kg/m2 | SpO2 94%RA General Appearance: Alert, cooperative, no distress, appears stated age Head: Normocephalic, without obvious abnormality, atraumatic Eyes: PERRL, conjunctiva clear, no scleral icterus, EOM's intact Ears: Normal TM's, external auditory canals, normal acuity Nose: Nares normal, septum midline, mucosa normal Mouth: No oral lesions or exudate Neck: Supple, symmetrical, no adenopathy Lungs: No accessory muscle use, breath sounds are diminished bilaterally with prolongatio n of the expiratory phase, diffuse expiratory wheezing with occasional rhonchi Chest Wall: No deformity Heart: Regular rate and rhythm, no murmur, rub or gallop Abdomen: Soft, non-tender, non-distended, mildly obese Extremities: No cyanosis, clubbing Pulses: Radial pulses 2+ and symmetric Skin: Warm and dry Lymph nodes: Cervical and supraclavicular nodes normal Data: Immunization History Administered Date(s) Administered INFLUENZA, >= 4YO W/PRESERVATIVE IM 12/12/2010 INFLUENZA, PRESERVATIVE FREE IM 12/13/2011 Pneumococcal (Adult) 02/24/2011 Tdap 01/22/2008 Dates: 05/11/12-08/08/12 Machine type: [employer] Company: [employer] CPAP Pressure: 13 cmH2O AHI: 6.1 events/hour (1.6 central, 4.7 apnea, 1.4 hypopnea, 1.1 obstructive) Total number of days: 90 Number of days used: 89 Median daily usage: 5:32 hours Percent of days used for more than 4 hours: 74 % Median leak: 0.0 L/min Assessment 1. COPD exacerbation - She is clearly exacerbating today. We will treat for exacerbation wi th antibiotics and steroids. I also have provided samples of Advair and albuterol nebulizers to get her through her job transition. 2. GARRY on CPAP - This is much improved. That being said, she is more tired with the drop in pressure despite the improved AHI. We will try switching her back to auto at [id number]. Th raven are not typically central apneas, so I do not think a back up rate would benefit her. He r sleep schedule remains irregular, which I think contributes to fatigue. She has been resis tant to changing this, but she has overall come a long way. 3. Tobacco abuse- She is determined to quit as of today. Plan 1.Treat with 12 day prednisone cousre plus cephalexin for 10 days. 2.Change CPAP pressure to [id number]. 3.Work on smoking cessation. 4.Bring download to next visit. She was advised to call if new pulmonary symptoms were to develop. Return to clinic in 4 weeks, or sooner with concerns. CC: Juan Cherry Portions of this report were transcribed using voice recognition software. Every effort wa s made to ensure accuracy; however, inadvertent computerized split and drum room supervisor errors may be pre sent. documented in [...] [place] | | | | | | [address] | | | | | | | | +--------+---------+ + + + | 11/24/ | Office | Cardiology | [place], | | | 2020 | Visit | | SINDHU Erickson [address] | | | | | | [place], | | | | | | [place] [address] | | | | | | [phone] | | | | | | | | +--------+---------+ + + + documented as of this encounter Visit Diagnoses + + | Diagnosis | + + | COPD exacerbation (HCC) - Primary Obstructive chronic bronchitis with exacerbation | + + | GARRY on CPAP Obstructive sleep apnea (adult) (pediatric) | + + | Tobacco abuse Tobacco use disorder | + + documented in this encounter
--- OUTSIDE RECORDS SUMMARY | ~2019-01-15 | XMS | Encounter Summary ---
Demographics + + + | Address | [address] | | | [place] [address] | + + + | Home Phone | | + + + | Preferred Language | Unknown | + + + | Marital Status | Single | + + + | Zoroastrian Affiliation | [id number] | + + + [...] Team Providers + +------+ + | Care Agronomist Name | Role | Phone | + [...] Closed | | Radiology | Diagnoses | Juliette, | [facility] | | | | | Pituitary | Shashi Witt, | [address] | | | | | adenoma | MD Need | [place], | | | | | ([facility]) | updated | [place] | | | | | Procedures | address | [address] | | | | | MRI Brain w | | Phone: | | | | | wo Contrast | | [phone] | | | | | | | Fax: | | | | | | | [phone] | +--------+--------+ + + + + Reason for Visit Diagnostic/Screening (Routine) +--------+--------+ + + + + | Status | Reason | Specialty | Diagnoses / | Referred By | Referred To | | | | | Procedures | Contact | Contact | +--------+--------+ + + + + | Closed | | Radiology | Diagnoses | Juliette, | [facility] | | | | | Pituitary | Shashi Witt, | [address] | | | | | adenoma | MD Need | [place], | | | | | ([facility]) | updated | [place] | | | | | Procedures | address | [address] | | | | | MRI Brain w | | Phone: | | | | | wo Contrast | | [phone] | | | | | | | Fax: | | | | | | | [phone] | +--------+--------+ + + + + Encounter Details +--------+ + + + + | Date | Type | Department | Care Team | Description | +--------+ + + + + | 06/02/ | Hospital | [facility] | Shashi Segovia | Pituitary adenoma | | 2014 | Encounter | [facility] MRI [address] MD Need updated | ([facility]) | | | | [place], | address | | | | | [place] [address] | | | | | | [phone] | | | +--------+ + + + + Social History + + + +--------+------+ | Tobacco Use | Types | Packs/Day | Years | Date | | | | | Used | | + + + +--------+------+ | Current Every Day | Cigarettes | 0.3 | 30 | | | Smoker | | | | | + + + +--------+------+ + +---+---+---+ | Smokeless Tobacco: | | | | | Never Used | | | | + +---+---+---+ + + | Comments: started smoking again at end April 2014 | + + + + +---------+ + [...] | | | | | order to [facility]. | | | | | [...] | | | send order to [facility] | | | | | | | [facility]. | | | | | | [...] tablet by | 15 | 3 | 04/18/19 | | | (DELTASONE) 10 mg | mouth Every other | tablet | | 15 | 5 | | tabletIndications: | day. | | | | | | COPD (chronic | | | | | | | obstructive | | | | | | | pulmonary disease) | | | | | | | ([facility]) | | | | | [...] [place] | | | | | | [address] | | | | | | | | +--------+---------+ + + + | 11/24/ | Office | Cardiology | [place], | | | 2019 | Visit | | SINDHU Erickson [address] | | | | | | [place], | | | | | | [place] [address] | | | | | | [phone] | | | | | | | | +--------+---------+ + + + documented as of this encounter Procedures + +--------+ + + + | Procedure Name | Priori | Date/Time | Associated Diagnosis | Comments | | | ty | | | | + +--------+ + + + | MRI BRAIN W WO | Routin | 06/02/2014 | Pituitary adenoma | Results for this | | CONTRAST | e | 9:50 AM | (HCC) | procedure are in the | | | | PDT | | results section. | + +--------+ + + + documented in this encounter Results MRI Brain w wo Contrast (06/02/2014 9:50 AM PDT) + + | Specimen | + + | | + + + + + | Narrative | Performed At | + + + | UNENHANCED AND ENHANCED MRI OF THE BRAIN: 06/02/2014 8:54 AM | [facility] | | CLINICAL HISTORY: pituitary adenoma COMPARISON: 2009 and 2010 | . [facility] | | TECHNIQUE: Multiplanar, multisequence imaging of the brain was | [facility] | | performed in the 1.5 T MR scanner before and after the uneventful | - IMAGING | | administration of 10 mL of Gadavist. Dedicated small pvgie-au-oucy | | | thin section imaging through the pituitary region before and after | | | contrast. FINDINGS: Study is mildly degraded by patient motion | | | artifact. Ventricular spaces, CSF cisterns and sulci have a normal | | | symmetric appearance. Shaw-white differentiation is normal. No areas | | | of abnormal white matter signal. No diffusion restriction. No defined | | | infarct. No extra-axial fluid collections. No magnetic | | | susceptibility artifact. No mass or mass effect. Posterior fossa | | | contents are normal. Intracranial vasculature appears normal. | | | Pituitary has normal size and volume. Pituitary stalk is midline and | | | nondeviated. Pituitary enhancement is relatively uniform. As noted on | | | prior exams, there is a tiny 1 mm hypoenhancing focus on the right | | | side of the gland. This is seen only on a single coronal slice. It is | | | however similar in appearance to the comparison 2010 exam. No other | | | pituitary nodularity. No orbital abnormality. Mastoids and | | | paranasal sinuses are normal. IMPRESSION - 1. Tiny, 1 mm focus | | | of hypoenhancement on the right side of the pituitary. Small size | | | obviously limits characterization and possibly clinical significance, | | | but this is the same focus referred to on prior imaging as potential | | | pituitary microadenoma. No change in appearance from prior. 2. | | | Otherwise normal MRI of the brain. Dictated and Signed by: Van | | | MD Mikal Electronically signed: 06/02/2014 11:48 AM | | + + + + + | Procedure Note | + + | Reed, Rad Results In - 06/02/2014 11:51 AM PDT UNENHANCED AND ENHANCED MRI OF THE | | BRAIN: 06/02/2014 8:54 AMCLINICAL HISTORY: pituitary adenomaCOMPARISON: 2009 and | | 2010TECHNIQUE: Multiplanar, multisequence imaging of the brain was performed in the1.5 T | | MR scanner before and after the uneventful administration of 10 mL ofGadavist. | | Dedicated small vcosc-ba-hooe thin section imaging through thepituitary region before | | and after contrast.FINDINGS: Study is mildly degraded by patient motion artifact. | | Ventricular spaces, CSF cisterns and sulci have a normal symmetric appearance.Shaw-white | | differentiation is normal.No areas of abnormal white matter signal. No diffusion | | restriction. No definedinfarct.No extra-axial fluid collections. No magnetic | | susceptibility artifact. No massor mass effect.Posterior fossa contents are normal. | | Intracranial vasculature appears normal.Pituitary has normal size and volume. Pituitary | | stalk is midline andnondeviated. Pituitary enhancement is relatively uniform. As noted | | on priorexams, there is a tiny 1 mm hypoenhancing focus on the right side of the | | gland.This is seen only on a single coronal slice. It is however similar in appearanceto | | the comparison 2010 exam. No other pituitary nodularity.No orbital abnormality. | | Mastoids and paranasal sinuses are normal.IMPRESSION - 1. Tiny, 1 mm focus of | | hypoenhancement on the right side of the pituitary. Smallsize obviously limits | | characterization and possibly clinical significance, butthis is the same focus referred | | to on prior imaging as potential pituitarymicroadenoma. No change in appearance from | | prior.2. Otherwise normal MRI of the brain.Dictated and Signed by: Van Ren MD | | Electronically signed: 06/02/2014 11:48 AM | |nondeviated. Pituitary enhancement is relatively uniform. As noted on prior | |exams, there is a tiny 1 mm hypoenhancing focus on the right side of the gland. | |This is seen only on a single coronal slice. It is however similar in appearance | |to the comparison 2010 exam. No other pituitary nodularity. | | | |No orbital abnormality. Mastoids and paranasal sinuses are normal. | | | |IMPRESSION - | |1. Tiny, 1 mm focus of hypoenhancement on the right side of the pituitary. Small | |size obviously limits characterization and possibly clinical significance, but | |this is the same focus referred to on prior imaging as potential pituitary | |microadenoma. No change in appearance from prior. | | | |2. Otherwise normal MRI of the brain. | | | |Dictated and Signed by: Van Ren MD | | Electronically signed: 06/02/2014 11:48 AM | + + + + + + + | Performing | Address | City/State[facility] | Phone Number | | Organization | | | | + + + + + | [address] | [address] | [place] | [phone] | | [facility] | | [address] | | | - IMAGING | | | | + + + + + documented in this encounter Visit Diagnoses + + | Diagnosis | + + | Pituitary adenoma (HCC) Benign neoplasm of pituitary gland and craniopharyngeal duct | | (pouch) | + + documented in this encounter Administered Medications + +--------+ +--------+------+------+ | Medication Order | MAR | Action | Dose | Rate | Site | | | Action | Date | | | | + +--------+ +--------+------+------+ | gadobutrol (GADAVIST) injection | Given | 06/03/19 | 10 mLs | | | | 10 mL 10 mL, Intravenous, ONCE | | 15 9:35 | | | | | PRN, Other, Starting Carey 06/02/14 | | AM PDT | | | | | at 0934, For 1 dose, MRI | | | | | | + +--------+ +--------+------+------+ +---+---+ | | | +---+---+ documented in this encounter"
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
--- OUTSIDE RECORDS SUMMARY | ~2019-01-15 | XMS | Encounter Summary ---
Demographics + + + | Address | [address] | | | [place] [address] | + + + | Home Phone [...] Team Providers + +------+ + | Care It Solutions Architect Name | Role | Phone | + +------+ + | Juan Cherry DO | PCP | | + +------+ + Reason for Visit + + + | Reason | Comments | + + + | Foot Injury | foot pain x 1 week. RM 3 | + + + Encounter Details +--------+---------+ + + + | Date | Type | Department | Care Team | Description | +--------+---------+ + + + | 01/07/ | Office | [facility] | Lencho Astorga, | Contusion of foot | | 2012 | Visit | CARE [address] | [address] | including toes | | | | [place] | [place] | (Primary Dx) | | | | [address] | [address] | | | | | [phone] | | | +--------+---------+ + + + [...] + + + | Blood Pressure | 90/52 | 01/07/2013 12:15 PM | | | | | PST | | + + + + + | Pulse | 84 | 01/07/2013 12:15 PM | | | | | PST | | + + + + + | Temperature | 37 C (98.6 F) | 01/07/2013 12:15 PM | | | | | PST | | + + + + + | Respiratory Rate | 16 | 01/07/2013 12:15 PM | | | | | PST | | + + + + + | Oxygen Saturation | 95% | 01/07/2013 12:15 PM | | | | | PST | | + + + + + | Inhaled Oxygen | - | - | | | Concentration | | | | + + + + + | Weight | 64.9 kg (143 lb) | 01/07/2013 12:15 PM | | | | | PST | | + + + + + | Height | 157.5 cm (5' 2") | 01/07/2013 12:15 PM | | | | | PST | | + + + + + | Body Mass Index | 26.16 | 01/07/2013 12:15 PM | | | | | PST | | + + + + + documented in this encounter Patient Instructions Patient Instructions Lencho Astorga MD - 01/07/2013 12:51 PM PSTYou may take ibuprofen o r Tylenol for the pain. Increase activity as tolerated. Recheck as needed.Electronically s igned by Lencho Astorga MD at 01/07/2013 12:52 PM PST documented in this encounter Progress Notes Lencho Astorga MD - 01/07/2013 12:28 PM PSTFormatting of this note might be different fr om the original. Subjective: Patient ID: Jadyn Schmitz is a 47 y.o. female. HPI Patient's medications, allergies, past medical, surgical, social and family histories were reviewed and updated as appropriate. This woman came to the clinic because of injury in her left foot 3 days ago. She accidenta lly ran against a solid object bruising the toes. It has been so persistently painful that she decided she better come in and get checked. It is also bruised up on the foot itself. She had no other complaint at this time. Her reviewed her past history and meds. Review of Systems Constitutional: Negative. HENT: Negative. Respiratory: Negative. Cardiovascular: Negative. Objective: Physical Exam Vitals reviewed. Constitutional: She appears well-developed and well-nourished. HENT: Head: Normocephalic. Eyes: Pupils are equal, round, and reactive to light. Neck: Normal range of motion. Musculoskeletal: Her left foot has bruising, mild swelling, and quite marked tenderness of toes 23 and 4 with the bruising and tenderness extending up over the metatarsals about 1-1/2 inches. Assessment: 1. Contusion of foot including toes XR Foot Left 3 + Vw Plan: Please see the AVS for the plan unless outlined elsewhere. X-ray L foot - no fx seen P M PSTdocumented in this encounter Plan of Treatment +--------+---------+ + + + | Date | Type | Specialty | Care Team | Description | +--------+---------+ + + + | 03/01/ | Office | Pulmonology | Mukul Clark MD | | | 2019 | Visit | | [address] | | | | | | [place] | | | | | | [address] | | | | | | | | +--------+---------+ + + + | 11/24/ | Office | Cardiology | [place], | | | 2019 | Visit | | SINDHU Erickson [address] | | | | | | [place], | | | | | | [place] [address] | | | | | | [phone] | | | | | | | | +--------+---------+ + + + documented as of this encounter Results XR Foot Left 3 + Vw (01/07/2013 2:30 PM PST) + + | Specimen | + + | | + + + + + | Narrative | Performed At | + + + | [facility] | [place] | | Department [address] [facility] | [place] | | [ rep [address]] [ rep [facility] | | st zip] Signed | - IMAGING | | | | | Patient Name: JADYN SCHMITZ | | | Physician: FRANCA : 1965 Age: 47 Sex: F Unit | | | #: [id number] Exam Date: 01/07/13 Location: | | | [facility] Report #: [id number] Page: | | | %(RAD)RES..mtdd.print.filter("pg") of %(RAD) | | | RES..mtdd.print.filter("tpg") | | | | | | Accession Number: [id number] | | | LEFT FOOT, 01/07/2013 CLINICAL HISTORY: TRAUMA. | | | COMPARISON: None. FINDINGS: 3 views of the | | | left foot were obtained. There is no evidence for acute fracture or | | | dislocation. Mild hallux valgus is present. Early degenerative | | | changes are present of the 1st MTP joint with osteophytosis. There | | | is mild soft tissue swelling of the 1st MTP joint. | | | IMPRESSION: 1. NO ACUTE FINDINGS. 2. | | | MILD HALLUX VALGUS. ASSOCIATED EARLY DEGENERATIVE CHANGES ARE | | | VISUALIZED OF THE 1ST MTP JOINT WITH MILD SOFT TISSUE SWELLING. | | | Dictated Date/Time: 01/07/2013 14:30 Transcribed | | | Date/Time: 01/07/2013 15:01 Genetic Engineer: | | | <<Signature on File>> | | | Kobe | | | MD Tor01/07/13 [id number] <Electronically signed by Kobe Lentz MD> | | | Kobe Lentz MD 01/07/13 1430 Genetic Engineer: [employer] | | | [email or web address]/14/13 1501 Lencho Astorga MD | | + + + + + + + + | Performing | Address | City/State/Zipcode | Phone Number | | Organization | | | | + + + + + | [facility] | [address] | [place] | [phone] | | [facility] | | [address] | | | - IMAGING | | | | + + + + + documented in this encounter Visit Diagnoses + + | Diagnosis | + + | Contusion of foot including toes - Primary Contusion of foot | + + documented in this encounter
--- OUTSIDE RECORDS SUMMARY | ~2019-01-15 | XMS | Encounter Summary ---
Demographics + + + | Address | [address] | | | [place] [address] | + + + | Home Phone | | + + + | Preferred Language | Unknown | + + + | Marital Status | Single | + + + | Bahai Affiliation | 1041 | + + + | Race | Unknown | + + + | Ethnic Group | Unknown | + + + Author + + + | Author | [facility] | | | and [place] | + + + | Organization | [facility] | | | [...] Team Providers + +------+ + | Care Calculation Reviewer Name | Role | Phone | + +------+ + | Juan Cherry DO | PCP | | + +------+ + Reason for Visit +--------+ + | Reason | Comments | +--------+ + | Other | DMSO Bladder instillation for Interstitial Cystitis | +--------+ + Encounter Details +--------+---------+ + + + | Date | Type | Department | Care Team | Description | +--------+---------+ + + + | 10/22/ | Office | [facility] | Andriy Weber | Interstitial | | 2015 | Visit | [address] | MD [address] | cystitis (Primary | | | | [place] | [place] [address] | Dx); Pyuria | | | | [address] | [place] [address] | | | | | [phone] | [phone] | | | | | | | [...] documented as of this encounter Progress Notes Marysol Nunes RN - 10/23/2015 9:25 AM PDT Patient presents for DMSO treatment. After sterile prep, 2% lidocaine gel introduced into urethra for comfort and 15 Fr urethral catheter inserted into bladder with about 100 cc hazy yellow urine drained from bladder. 50 cc DMSO with 20 cc 2% lidocaine, 10 cc 8.4% sodium b icarbonate, 40 mg kenalog, and 10,000 units heparin instilled into bladder via gravity per rosemary rosales and Dr. Weber's order. Patient remained in the office for 20 minutes prior to void ing. After voiding, patient was discharged home and will return to clinic in 1 week for nex t treatment. Interstitial Cystitis Symptoms Index (ICSI) During the past month: Not at all Less than 1 time in 5 Less than half the time About half the time More than half the time Almost always How often have you felt the strong need to urinate with little or not warning: [] 0 [] 1 [] 2 [] 3 [x] 4 [] 5 Have you had to urinate less than 2 hours after you finished urinating? [] 0 [] 1 [] 2 [] 3 [x] 4 [] 5 How often did you most typically get up at night to urinate? [] 0 [] 1 [] 2 [x] 3 [] 4 [] 5 Have you experienced pain or burning in your bladder? [] 0 [] 1 [] 2 [x] 3 [] 4 [] 5 Add the numerical values of the checked entries: TOTAL: 14 Interstitial Cystitis Problem Index (ICPI) During the past month, how much has each of the following been a problem for you: No Proble m Very small problem Small problem Medium problem Big problem Frequent urination during the day? [] 0 [] 1 [] 2 [x] 3 [] 4 Getting up at night to urinate? [] 0 [] 1 [] 2 [x] 3 [] 4 Need to urinate with little warning? [] 0 [] 1 [] 2 [x] 3 [] 4 Burning, pain, discomfort, or pressure in your bladder? [] 0 [] 1 [] 2 [x] 3 [] 4 Add the numerical values of the checked entries: TOTAL: 12 Administrations This Visit dimethyl sulfoxide (RIMSO-50) 50% solution 50 mL Admin Date Action Dose Route Administered By 10/23/2015 Given 50 mL Bladder Instillation Marysol Nunes RN heparin 10,000 units/mL injection 10,000 Units Admin Date Action Dose Route Administered By 10/23/2015 Given 03263 Units Subcutaneous Marysol Nunes RN lidocaine 2% injection 20 mL Admin Date Action Dose Route Administered By 10/23/2015 Given 20 mL Infiltration Marysol Nunes RN sodium bicarbonate 1 mEq/mL injection 10 mEq Admin Date Action Dose Route Administered By 10/23/2015 Given 10 mEq Other Marysol Nunes RN triamcinolone acetonide (KENALOG-40) 40 mg/mL injection 40 mg Admin Date Action Dose Route Administered By 10/23/2015 Given 40 mg Intramuscular Marysol Nunes RN She'll return for her next installation in 2 weeks' time. Associated attestation - Andriy Weber MD - 10/23/2015 12:08 PM PDTGretmeghna was giv en a DMSO treatment today, and tolerated it well. She will return in 2 weeks for her next i nstallation.documented in this encounter Plan of Treatment +--------+---------+ + + + | Date | Type | Specialty | Care Team | Description | +--------+---------+ + + + | 03/01/ | Office | Pulmonology | Mukul Clark MD | | | 2019 | Visit | | [address] | | | | | | [place] | | | | | | [address] | | | | | | | | +--------+---------+ + + + | 11/24/ | Office | Cardiology | [place], | | | 2019 | Visit | | SINDHU Erickson [address] | | | | | | [place], | | | | | | [place] [address] | | | | | | [phone] | | | | | | | | +--------+---------+ + + + documented as of this encounter Procedures + +--------+ + + + | Procedure Name | Priori | Date/Time | Associated Diagnosis | Comments | | | ty | | | | + +--------+ + + + | URINALYSIS, | Routin | 10/23/2015 | Pyuria | Results for this | | MICROSCOPIC ONLY, | e | 8:32 AM | | procedure are in the | | WITH CULTURE IF | | PDT | | results section. | | INDICATED | | | | | + +--------+ + + + | CULTURE, URINE | Routin | 10/23/2015 | Pyuria | Results for this | | | e | 8:32 AM | | procedure are in the | | | | PDT | | results section. | + +--------+ + + + | POCT URINALYSIS, | Routin | 10/23/2015 | Pyuria | Results for this | | AUTO WITH CONF | e | 8:31 AM | | procedure are in the | | | | PDT | | results section. | + +--------+ + + + documented in this encounter Results Culture, Urine (10/23/2015 8:32 AM PDT) + + + + + + | Component | Value | Ref Range | Performed | Pathologist | | | | | At | Signature | + + + + + + | Culture | 10,000 - 20,000 CFU/ml | | [facility] | | | | Mixed vivek (multiple | | [facility] | | | | morphologies | | MEDICAL | | | | present)Comment: | | CENTER - | | | | Suggests contamination | | LABORATORY | | | | with urogenital or skin | | | | | | vivek. | | | | + + + + + + + + | Specimen | + + | Urine - Urine | | specimen obtained by | | clean catch | | procedure (specimen) | + + + + + + + | Performing | Address | City/State/Zipcode | Phone Number | | Organization | | | | + + + + + | [facility] | [address] | [place] | [phone] | | [facility] | | [address] | | | - LABORATORY | | | | + + + + + Urinalysis, Microscopic Only, with Culture if Indicated (10/23/2015 8:32 AM PDT) + + + + + + | Component | Value | Ref Range | Performed | Pathologist | | | | | At | Signature | + + + + + + | WBC UA | 2-5 (A) | 0 - 2 /HPF | [facility] | | | | | | [facility] | | | | | | MEDICAL | | | | | | CENTER - | | | | | | LABORATORY | | + + + + + + | WBC CLUMPS | Few (A) | None Seen /HPF | [facility] | | | UA | | | [facility] | | | | | | MEDICAL | | | | | | CENTER - | | | | | | LABORATORY | | + + + + + + | RBC UA | 0-2 | 0 - 2 /HPF | [facility] | | | | | | [facility] | | | | | | MEDICAL | | | | | | CENTER - | | | | | | LABORATORY | | + + + + + + | SQUAMOUS | >100 (A) | 0 - 2 /LPF | [facility] | | | EPITHELIAL | | | [facility] | | | UA | | | MEDICAL | | | | | | CENTER - | | | | | | LABORATORY | | + + + + + + | BACTERIA UA | 1+ (A) | Negative /HPF | [facility] | | | | | | [facility] | | | | | | MEDICAL | | | | | | CENTER - | | | | | | LABORATORY | | + + + + + + | MUCUS UA | Present (A) | Negative /LPF | [facility] | | | | | | [facility] | | | | | | MEDICAL | | | | | | CENTER - | | | | | | LABORATORY | | + + + + + + + + | Specimen | + + | Urine - Urine | | specimen obtained by | | clean catch | | procedure (specimen) | + + + + + + + | Performing | Address | City/State/Zipcode | Phone Number | | Organization | | | | + + + + + | [facility] | [address] | [place] | [phone] | | [facility] | | [address] | | | - LABORATORY | | | | + + + + + POCT Urinalysis Dipstick Automated (10/23/2015 8:31 AM PDT) + + + + + + | Component | Value | Ref Range | Performed | Pathologist | | | | | At | Signature | + + + + + + | Color, UA, | Yellow | Yellow, Light | | | | POC | | Yellow | | | + + + + + + | Clarity, | Hazy | | | | | UA, POC [...] 1.001 - 1.030 | | | | [place], | | | | | | UA, [...] + + + + | Leukocyte | Trace (A) | Negative | | | | Esterase, [...] Primary Chronic interstitial cystitis | + + | Pyuria Other nonspecific finding on examination of urine | + + documented in this encounter Administered Medications + +--------+ +--------+------+---------+ | Medication Order | MAR | Action | Dose | Rate | Site | | | Action | Date | | | | + +--------+ +--------+------+---------+ | dimethyl sulfoxide (RIMSO-50) | Given | 10/23/19 | 50 mLs | | Bladder | | 50% solution 50 mL 50 mL, | | 16 9:27 | | | | | Bladder Instillation, WEEKLY, | | AM PDT | | | | | First dose on 10/23/15 at | | | | | | | 0945, For 4 doses | | | | | | + +--------+ +--------+------+---------+ +---+---+ | | | +---+---+ + +-------+ +---------+---+ + | heparin 10,000 units/mL | Given | 10/23/19 | 10,000 | | Other | | injection 10,000 Units 10,000 | | 16 9:31 | Units | | (Comment | | Units, Subcutaneous, WEEKLY, | | AM PDT | | | ) | | First dose on Fri10/23/15 at | | | | | | | 0945, For 4 doses | | | | | | + +-------+ +---------+---+ + +---+---+ | | | +---+---+ + +-------+ +--------+---+ + | lidocaine 2% injection 20 mL | Given | 10/23/19 | 20 mLs | | Other | | 20 mL, Infiltration, WEEKLY, | | 16 9:38 | | | (Comment | | First dose (after last | | AM PDT | | | ) | | modification) on Fri10/23/15 at | | | | | | | 1000, For 4 doses | | | | | | + +-------+ +--------+---+ + +---+---+ | | | +---+---+ + +-------+ +--------+-------+---------+ | sodium bicarbonate 1 mEq/mL | Given | 10/23/19 | 10 mEq | 600 | Bladder | | injection 10 mEq 10 mEq, Other, | | 16 9:40 | | mL/hr | | | Administer over 1 Minutes, | | AM PDT | | | | | WEEKLY, First dose (after last | | | | | | | modification) on Fri10/23/15 at | | | | | | | 0945, For 4 doses | | | | | | + +-------+ +--------+-------+---------+ +---+---+ | | | +---+---+ + +-------+ +-------+---+ + | triamcinolone acetonide | Given | 10/23/19 | 40 mg | | Other | | (KENALOG-40) 40 mg/mL injection | | 16 9:44 | | | (Comment | | 40 mg 40 mg, Intramuscular, | | AM PDT | | | ) | | WEEKLY, First dose (after last | | | | | | | modification) on Fri10/23/15 at | | | | | | | 0945, For 4 doses, Shake well. | | | | | | | Not for IV use., | | | | | | + +-------+ +-------+---+ + +---+---+ | | | +---+---+ documented in this encounter"
--- OUTSIDE RECORDS SUMMARY | ~2019-01-15 | XMS | Encounter Summary ---
Demographics + + + | Address | [address] | | | [place] [address] | + + + | Home Phone [...] Team Providers + +------+ + | Care Academic Affairs Dean Name | Role | Phone | + +------+ + PCP | Unavailable | + +------+ + Encounter Details +--------+ + + + + | Date | Type | Department | Care Team | Description | +--------+ + + + + | 10/06/ | [facility] | [facility] | | | | 2008 | Encounter | [facility] | | | | | | [address] [place] | | | | | | [place] | | | | | | [address] | | | | | | [phone] | | | +--------+ + + + [...] [place] | | | | | | [address] | | | | | | | | +--------+---------+ + + + | 11/24/ | Office | Cardiology | [place], | | | 2020 | Visit | | SINDHU Erickson [address] | | | | | | [place], | | | | | | [place] [address] | | | | | | [phone] | | | | | | | | +--------+---------+ + + + documented as of this encounter Visit Diagnoses Not on filedocumented in this encounter"
--- OUTSIDE RECORDS SUMMARY | ~2019-01-15 | XMS | Encounter Summary ---
Demographics + + + | Address | [address] | | | [place] [address] | + + + | Home Phone | | + + + | Preferred Language | Unknown | + + + | Marital Status | Single | + + + | Gnosticist Affiliation | 1041 | + + + [...] Team Providers + +------+ + | Care Mica Laminating Machine Feeder Name | Role | Phone | + +------+ + | Juan Cherry DO | PCP | | + +------+ + Encounter Details +--------+ + + + + | Date | Type | Department | Care Team | Description | +--------+ + + + + | 03/05/ | Hospital | [facility] | Conversion | Pain | | 2017 | Encounter | CONVERSION [address] | Transaction, | | | | | [address] | Provider Unknown | | | | | [place], [place] | [phone] | | | | | [address] | | | | | | [phone] | | | +--------+ + + + [...] | | | | | order to [facility]. | | | | | + [...] | | | | send order to [facility] | | | | | | | [facility]. | | | | | [...] | | | | | | | ([facility]) | | | | [...] | 0 | 10/13/19 | | | [id number] | mouth as needed. | | | 16 | 7 | | -Cod [id number] MG | | | | | | [...] | | | | | | | ([facility]) | | | | [...] | Muklu Clark MD | | | 2019 | Visit | | [address] | | | | | | [place] | | | | | | [phone] | | | | | | | | +--------+---------+ + + + | 11/24/ | Office | Cardiology | [place], | | | 2019 | Visit | | SINDHU Erickson [address] | | | | | | [place] | | | | | | [place] [address] | | | | | | [phone] | | | | | | | [...]
--- OUTSIDE RECORDS SUMMARY | ~2019-01-15 | XMS | Encounter Summary ---
Demographics + + + | Address | [address] | | | [place] [address] | + + + | Home Phone [...] Team Providers + +------+ + | Care Lobby Attendant Name | Role | Phone | + +------+ + | Juan Cherry DO | PCP | | + +------+ + Encounter Details +--------+---------+ + + + | Date | Type | Department | Care Team | Description | +--------+---------+ + + + | 02/28/ | Surgery | [facility] | Jared Mcdonough, | [facility] with Radial | | 2014 | | MED CTR CV INTRA OP | MD [address] | approach | | | | [address] | [place], | | | | | [place], [place] | [place] [address] | | | | | [address] | [phone] | | | | | [phone] | | | +--------+---------+ + + + [...] + + + | Blood Pressure | 115/50 | 02/28/2014 11:15 AM | | | | | PST | | + + + + + | Pulse | 80 | 02/28/2014 11:30 AM | | | | | PST | | + + + + + | Temperature | 36.6 C (97.9 F) | 02/28/2014 7:00 AM | | | | | PST | | + + + + + | Respiratory Rate | 16 | 02/28/2014 11:15 AM | | | | | PST | | + + + + + | Oxygen Saturation | 97% | 02/28/2014 11:15 AM | | | | | PST | | + + + + + | Inhaled Oxygen | - | - | | | Concentration | | | | + + + + + | Weight | 70.3 kg (155 lb) | 02/28/2014 7:00 AM | | | | | PST | | + + + + + | Height | 157.5 cm (5' 2") | 02/28/2014 7:00 AM | | | | | PST | | + + + + + | Body Mass Index | 28.35 | 02/28/2014 7:00 AM | | | | | PST [...] | | | | | order to [facility]. | | | | | [...] | | | | send order to [facility] | | | | | | | [facility]. | | | | | | [...] documented as of this encounter Progress Notes Chanda Padilla RN - 02/28/2014 12:42 PM PSTRt groin site without swelling, bleeding o r drainage. Dressing clean dry and intact. Rt pedal pulse palp. Chanda Bain RN - 02/28/2014 12:40 PM PSTNo change assessment Chanda Mcwilliams RN - 02/28/2014 12:39 PM PSTNo change assessment Chanda Bain RN - 02/28/2014 10:49 AM PS TRt groin site remains, clean, dry and intact. No sign of bleeding, swelling or drainage. Rt pedal pulse palp. CMS good to rt footElectronically signed by Chanda Padilla RN at 06/2014 10:49 AM Chanda Bain RN - 02/28/2014 10:46 AM PSTSmall amount pink drain age noted from rt groin site leaking under dressing, dressing changed. No swelling noted, si te remains soft. Rt pedal pulse palp cms good to rt foot Chanda Bain RN - 02/28/2014 10:11 AM PSTNo ch claudia groin site or rt foot 10:1 1 AM Chanda Bain RN - 02/28/2014 10:09 AM PSTNo change groin site rt footElectro nically signed by Chanda Padilla RN at 02/28/2014 10:09 AM Chanda Bain RN - 02/28/2014 10:07 AM PSTRt groin site without bleeding, swelling or drainage, tegaderm dress ing in place, rt pedal pulse palp. CMS good to rt foot documented in this encounter Plan of Treatment [...] | | | | | | [place] [address] | | | | | | [phone] | | | | | | | | +--------+---------+ + + + documented as of this encounter Procedures + +--------+ + + + | Procedure Name | Priori | Date/Time | Associated Diagnosis | Comments | | | ty | | | | + +--------+ + + + | CV DIAGNOSTIC | Routin | 02/28/2014 | Other chest pain | Results for this | | CARDIAC CATH | e | 9:42 AM | | procedure are in the | | | | PST | | results section. | + +--------+ + + + | CV DIAGNOSTIC | | 02/28/2014 | chest pain | | | CARDIAC CATH | | 8:20 AM | | | | | | PST | | | + +--------+ + + + | BASIC METABOLIC | Routin | 02/28/2014 | | Results for this | | PANEL | e | 8:03 AM | | procedure are in the | | | | PST | | results section. | + +--------+ + + + | MARLENE HALEK INR | Routin | 02/28/2014 | | Results for this | | | e | 8:00 AM | | procedure are in the | | | | PST | | results section. | + +--------+ + + + documented in this encounter Results CV Adult Cardiac Cath Diag/PCI (02/28/2014 9:42 AM PST) + + | Specimen | + + | | + + + + + | Narrative | Performed At | + + + | Jared Mcdonough MD 02/28/2014 9:40 CARDIAC | [facility] | | CATHETERIZATION and CORONARY ANGIOGRAPHY PATIENT NAME/: | . [facility] | | Rosario Malik, (1965) MEDICAL RECORD NUMBER: | [facility]ICAL [facility]ENTER | | [id number] DATE OF PROCEDURE: 02/28/2014 RECRUITING INTERN: | - IMAGING | | Jared Mcdonough MD PROCEDURES PERFORMED: Coronary | | | Angiography Left Heart Catheterization Left Ventriculography | | | Indications: Abnormal stress test DESCRIPTION OF PROCEDURE: | | | Informed consent was obtained from the patient, and a time-out was | | | performed to verify the patient's identification and planned | | | procedure. The patient's right groin was then prepped and draped | | | in the usual sterile fashion, and anesthetized with 1% lidocaine. | | | For arterial access modified Seldinger technique was used to place a | | | 6 Fr. sheath in the right femoral artery. Right heart | | | catheterization was not performed on this patient. After crossing | | | the aortic valve, left ventriculography was performed in the CAMACHO | | | projection. Selective coronary angiogram was then performed in | | | several sagittal and oblique projections. JL-4, 3DRC and pigtail | | | diagnostic catheters were used for this procedure. The patient | | | received a total of 2 mg of Versed and 100 mcg of fentanyl | | | intravenously for conscious sedation during the procedure. A total | | | of 93 mL Omnipaque 350 contrast was utilized. The procedure had no | | | immediate complications. At the conclusion of the procedure, | | | the sheath was removed and hemostasis obtained with an Angio Seal. | | | Distal pulses were present and unchanged. FINDINGS: | | | Hemodynamics: Ao - 100/55 mm Hg with a mean of 75 mm Hg LV - | | | 106/0 mm Hg LVEDP - 8 mm Hg Left ventriculography: The left | | | ventricular size and function were normal. LVEF is calculated at | | | 60%. There is no mitral valve regurgitation noted. Left main | | | artery: The left main artery is a medium caliber vessel that | | | bifurcates into the left anterior descending artery and left | | | circumflex artery. Left main artery has is free of disease. | | | Left anterior descending artery: The left anterior descending | | | artery is a medium caliber vessel that wraps around the apex and | | | gives rise to 2 diagonal branches. The vessel has an essentially | | | normal appearance. It gives rise to 2 diagonal branches. Left | | | circumflex artery: The left circumflex artery is a medium caliber | | | vessel that is non dominant. The vessel has an essentially | | | normal appearance. It gives rise to 1 OM branches. Right | | | coronary artery: The right coronary artery is a large caliber | | | vessel that is dominant. The vessel has an essentially normal | | | appearance. It gives rise to a PDA and Posterolateral branches. | | | CONCLUSIONS: 1. Essentially normal, smoothly | | | contoured coronary arteries 2. There is a right dominate circulation. | | | 3. Normal LV systolic function with an EF of 60% 4. Systemic blood | | | pressure is normal. 5. There was successful Angio Seal placement to | | | the puncture site in the right femoral artery. PLAN: 1. Risk | | | factor modification. [facility] CARE PROVIDER: Juan | | | DO Jo Ann | | + + + + + | Procedure Note | + + | Jared Mcdonough MD - 02/28/2014 9:33 AM PST Formatting of this note might be | | different from the original.CARDIAC CATHETERIZATION and CORONARY ANGIOGRAPHYPATIENT | | NAME/: Rosario Malik, (1965) OF | | PROCEDURE: 02/28/2014PRIMARY UNIFORM ROOM ATTENDANT: Jared Mcdonough MD PROCEDURES | | PERFORMED:Coronary AngiographyLeft Heart CatheterizationLeft | | VentriculographyIndications: Abnormal stress testDESCRIPTION OF PROCEDURE:Informed | | consent was obtained from the patient, and a time-out was performed to verify the | | patient's identification and planned procedure. The patient's right groin was then | | prepped and draped in the usual sterile fashion, and anesthetized with 1% lidocaine. | | For arterial access modified Seldinger technique was used to place a 6 Fr. sheath in the | | right femoral artery. Right heart catheterization was not performed on this patient. | | After crossing the aortic valve, left ventriculography was performed in the CAMACHO | | projection. Selective coronary angiogram was then performed in several sagittal and | | oblique projections. JL-4, 3DRC and pigtail diagnostic catheters were used for this | | procedure. The patient received a total of 2 mg of Versed and 100 mcg of fentanyl | | intravenously for conscious sedation during the procedure. A total of 93 mL Omnipaque | | 350 contrast was utilized. The procedure had no immediate complications.At the | | conclusion of the procedure, the sheath was removed and hemostasis obtained with an | | Angio Seal. Distal pulses were present and unchanged. FINDINGS:Hemodynamics:Ao - 100/55 | | mm Hg with a mean of 75 mm HgLV - 106/0 mm HgLVEDP - 8 mm HgLeft ventriculography: The | | left ventricular size and function were normal. LVEF is calculated at 60%. There is | | no mitral valve regurgitation noted.Left main artery: The left main artery is a medium | | caliber vessel that bifurcates into the left anterior descending artery and left | | circumflex artery. Left main artery has is free of disease.Left anterior descending | | artery: The left anterior descending artery is a medium caliber vessel that wraps | | around the apex and gives rise to 2 diagonal branches. The vessel has an essentially | | normal appearance. It gives rise to 2 diagonal branches.Left circumflex artery: The | | left circumflex artery is a medium caliber vessel that is non dominant. The vessel has | | an essentially normal appearance. It gives rise to 1 OM branches.Right coronary | | artery: The right coronary artery is a large caliber vessel that is dominant. The | | vessel has an essentially normal appearance. It gives rise to a PDA and Posterolateral | | branches.CONCLUSIONS:1. Essentially normal, smoothly contoured coronary arteries2. | | There is a right dominate circulation.3. Normal LV systolic function with an EF of 60%4. | | Systemic blood pressure is normal.5. There was successful Angio Seal placement to the | | puncture site in the right femoral artery.PLAN:1. Risk factor | | modification. PRIMARY | | CARE PROVIDER:Juan Cherry DO | |FINDINGS: | | | |Hemodynamics: | | | |Ao - 100/55 mm Hg with a mean of 75 mm Hg | |LV - 106/0 mm Hg | |LVEDP - 8 mm Hg | | | |Left ventriculography: The left ventricular size and function were normal. LVEF is calcul ated at 60%. There is no mitral valve regurgitation noted. | | | |Left main artery: The left main artery is a medium caliber vessel that bifurcates into the left anterior descending artery and left circumflex artery. Left main artery has is free o f disease. | | | |Left anterior descending artery: The left anterior descending artery is a medium caliber v essel that wraps around the apex and gives rise to 2 diagonal branches. The vessel has an e ssentially normal appearance. It gives rise to 2 diagonal branches. | | | |Left circumflex artery: The left circumflex artery is a medium caliber vessel that is non dominant. The vessel has an essentially normal appearance. It gives rise to 1 OM branches . | | | | | |Right coronary artery: The right coronary artery is a large caliber vessel that is dominan t. The vessel has an essentially normal appearance. It gives rise to a PDA and Posterolat eral branches. | | | | | | | | | | | | | |CONCLUSIONS: | |1. Essentially normal, smoothly contoured coronary arteries | |2. There is a right dominate circulation. | |3. Normal LV systolic function with an EF of 60% | |4. Systemic blood pressure is normal. | |5. There was successful Angio Seal placement to the puncture site in the right femoral izzy ry. | | | |PLAN: | |1. Risk factor modification. | | | | | | | | | | | | | | | |PRIMARY CARE PROVIDER: | |Juan Cherry DO | + + + + + + + | Performing | Address | City/State/Zipcode | Phone Number | | Organization | | | | + + + + + | [facility] | [address] | [place] | [phone] | | [facility] | | [address] | | | - IMAGING | | | | + + + + + Basic Metabolic Panel (02/28/2014 8:03 AM PST) + + + + + + | Component | Value | Ref Range | Performed | Pathologist | | | | | At | Signature | + + + + + + | Na | 135 (L) | 136 - 149 | [facility] | | | | | mmol/L | [facility] | | | | | | MEDICAL | | | | | | CENTER - | | | | | | LABORATORY | | + + + + + + | K | 3.7 | 3.5 - 5.1 | [facility] | | | | | mmol/L | [facility] | | | | | | MED[facility] | | | | | | CENTER - | | | | | | LABORATORY | | + + + + + + | Cl | 105 | 98 - 109 mmol/L | [facility] | | | | | | [facility] | | | | | | MEDICAL | | | | | | CENTER - | | | | | | LABORATORY | | + + + + + + | CO2 | 24 | 24 - 31 mmol/L | [facility] | | | | | | [facility] | | | | | | MEDICAL | | | | | | CENTER - | | | | | | LABORATORY | | + + + + + + | Anion Gap | 6 | 3 - 16 mmol/L | [facility] | | | | | | [facility] | | | | | | MEDICAL | | | | | | CENTER - | | | | | | LABORATORY | | + + + + + + | Glucose | 128 (H) | 70 - 109 mg/dL | [facility] | | | | | | [facility] | | | | | | MEDICAL | | | | | | CENTER - | | | | | | LABORATORY | | + + + + + + | BUN | 7 | 7 - 18 mg/dL | [facility] | | | | | | [facility] | | | | | | MEDICAL | | | | | | CENTER - | | | | | | LABORATORY | | + + + + + + | Creatinine | 0.94 | 0.60 - 1.30 | [facility] | | | | | mg/dL | [facility] | | | | | | MEDICAL | | | | | | CENTER - | | | | | | LABORATORY | | + + + + + + | eGFR if not | >60Comment: GLOMERULAR | >=60 | [facility] | | | | FILTRATION | mL/min/1.73m2 | [facility] | | | [facility]ENIAN | RATE,ESTIMATED | | MEDICAL | | | | mL/min/1.10w4Bbmr than | | CENTER - | | [...] + + + + | Calcium | 8.7 | 8.3 - 10.5 | [facility] | | | | | mg/dL | [facility] | | | | | | MEDICAL | | | | | | CENTER - | | | | | | LABORATORY | | + + + + + + | BUN/Creatin | 7.4 | | [facility] | | | ine [...] + | [facility] | [address] | [place] | [phone] | | [facility] | | [address] | | | - LABORATORY | | | | + + + + + | [facility] | [address] | [place], [place] | | | [facility] | | [address] | | | - LABORATORY | | | | + + + + + POC Fingerstick INR (02/28/2014 8:00 AM PST) + +-------+ + + + | Component | Value | Ref Range | Performed | Pathologist | | | | | At | Signature | + +-------+ + + + | INR, POC | 1.1 | 0.9 - 1.2 | | | + +-------+ + + + | Instrument | | | | | | ID | | | | | + +-------+ + + + + + | Specimen | + + | Blood specimen | | (specimen) | + + documented in this encounter Visit Diagnoses Not on filedocumented in this encounter Administered Medications + +---------+ +------+-------+------+ | Medication Order | MAR | Action | Dose | Rate | Site | | | Action | Date | | | | + +---------+ +------+-------+------+ | dextrose 5% and sodium chloride | New Bag | 02/28/19 | | 125 | | | 0.45% (D5 1/2 NS) infusion at | | 15 7:59 | | mL/hr | | | 125 mL/hr, Intravenous, FIXED | | AM PST | | | | | VOLUME (see admin instruction), | | | | | | | Starting 02/28/14 at 0745, For | | | | | | | procedure only, not to exceed 1 | | | | | | | liter., Pre-op | | | | | | + +---------+ +------+-------+------+ +---+---+ | | | +---+---+ + +-------+ +--------+---+---+ | fentaNYL injection PRN, Pain, | Given | 02/28/19 | 50 mcg | | | | Starting 02/28/14 at 0851 | | 15 8:55 | | | | | | | AM PST | | | | + +-------+ +--------+---+---+ +-------+ +--------+---+---+ | Given | 02/28/19 | 50 mcg | | | | | 15 8:51 | | | | | | AM PST | | | | +-------+ +--------+---+---+ +---+---+ | | | +---+---+ + +-------+ +--------+---+---+ | iohexol (OMNIPAQUE 350) 350 | Given | 02/28/19 | 95 mLs | | | | mg/mL injection Intravenous, | | 15 9:10 | | | | | PRN, Other, Starting 02/28/14 | | AM PST | | | | | at 0910 | | | | | | + +-------+ +--------+---+---+ +---+---+ | | | +---+---+ + +-------+ +------+---+---+ | midazolam (VERSED) 1 mg/mL | Given | 02/28/19 | 1 mg | | | | injection PRN, Anxiety, Starting | | 15 8:55 | | | | | 02/28/14 at 0851 | | AM PST | | | | + +-------+ +------+---+---+ +-------+ +------+---+---+ | Given | 02/28/19 | 1 mg | | | | | 15 8:51 | | | | | | AM PST | | | | +-------+ +------+---+---+ +---+---+ | | | +---+---+ documented in this encounter
--- OUTSIDE RECORDS SUMMARY | ~2019-01-15 | XMS | Encounter Summary ---
Demographics + + + | Address | [address] | | | [place] [address] | + + + | Home Phone | | + + + | Preferred Language | Unknown | + + + | Marital Status | Single | + + + | Adventism Affiliation | 1041 | + + + | Race | Unknown | + + + | Ethnic Group | Unknown | + + + Author + + + | Author | [facility] | | | and [place] | + + + | Organization | [facility] | | | [...] Team Providers + +------+ + | Care Cable Ferry Operator Name | Role | Phone | [...] | +--------+ + + + + | 02/14/ | Telephone | [facility] | Jesus Quiles | Shortness of Breath | | 2012 | | PULMONARY [address] | [place] [address] [facility] | | | | | [place], | [place], [place] | | | | | [place] [address] | [address] | | | | | [phone] | | | +--------+ + + + [...] [place] | | | | | | [address] | | | | | | | | +--------+---------+ + + + | 11/24/ | Office | Cardiology | [place], | | | 2019 | Visit | | [address] | | | | | | [place], | | | | | | [place] [address] | | | | | | [phone] | | | | | | | | +--------+---------+ + + + documented as of this encounter Visit Diagnoses + + | Diagnosis | + + | COPD (chronic obstructive pulmonary disease) (HCC) - Primary Chronic airway | | obstruction, not elsewhere classified | + + documented in this encounter"
--- OUTSIDE RECORDS SUMMARY | ~2019-01-15 | XMS | Encounter Summary ---
Demographics + + + | Address | [address] | | | [place] [address] | + + + | Home Phone | | + + + | Preferred Language | Unknown | + + + | Marital Status | Single | + + + | Mormon Affiliation | 1041 | + + + | Race | Unknown | + + + | Ethnic Group | Unknown | + + + Author + + + | Author | [facility] | | | and [place] | + + + | Organization | [facility] | | [...] Team Providers + +------+ + | Care Loom Changer Name | Role | Phone | + +------+ + | Juan Cherry DO | PCP | | + +------+ + Reason for Visit + + + | Reason | Comments | + + + | Shortness of Breath | [facility] # 7 - SOB X 1 week | + + + Encounter Details +--------+---------+ + + + | Date | Type | Department | Care Team | Description | +--------+---------+ + + + | 05/28/ | Office | [facility] | Kade Hoffman MD | COPD exacerbation | | 2013 | Visit | CARE [address] | [address] | ([facility]) (Primary Dx) | | | | [place] | [place] | | | | | [address] | [id number] | | | | | [phone] | | | +--------+---------+ + + + [...] + | Blood Pressure | 90/60 | 05/28/2013 8:41 AM | | | | | PDT | | + + + + + | Pulse | 96 | 05/28/2013 8:41 AM | | | | | PDT | | + + + + + | Temperature | 36.8 C (98.3 F) | 05/28/2013 8:41 AM | | | | | PDT | | + + + + + | Respiratory Rate | 24 | 05/28/2013 8:41 AM | | | | | PDT | | + + + + + | Oxygen Saturation | 93% | 05/28/2013 8:41 AM | | | | | PDT | | + + + + + | Inhaled Oxygen | - | - | | | Concentration | | | | + + + + + | Weight | 65.3 kg (144 lb) | 05/28/2013 8:41 AM | | | | | PDT | | + + + + + | Height | 157.5 cm (5' 2") | 05/28/2013 8:41 AM | | | | | PDT | | + + + + + | Body Mass Index | 26.34 | 05/28/2013 8:41 AM | | | | | PDT | | + + + + + documented in this encounter Progress Notes Kade Hoffman MD - 05/28/2013 8:55 AM PDT Subjective: Chief Complaint: Shortness of Breath Rosario is a 48 y.o. female who comes in for follow up of asthma/COPD. No other complain ts. Seen in ER for asthma 5 days ago, put on prednisone burst, still on three pills daily. Not improving. Feels like it is different than before. Harder time breathing. Increasing SOB. CO ughing a lot but dry. No fever, chills, but + hot flashes. Feels quite worn out. Using her n ebulizer treatments 4-5 x a day. On Advair, SPiriva, began Daliresp last week. Not on antibiotics for this exacerbation. Not allergic to Zithromax. Patient's medications, allergies, past medical, surgical, social and family histories were reviewed and updated as appropriate. Objective: BP 90/60 | Pulse 96 | Temp 36.8 C (98.3 F) (Temporal) | Resp 24 | Ht 1.575 m (5' 2") | Wt 65.318 kg (144 lb) | BMI 26.33 kg/m2 | SpO2 93% | ? No General Appearance: Alert, cooperative, no distress, appears stated age Mild tachypnea, takes breaths mid-sentence. HEENT WNL, mildly red throat, ears and nose WNL. No lymphadenopathy Lungs mildly decreased BS, diffuse mild end exp wheezing. Assessment and Plans: COPD exacerbation Increase prednisone, add zithromax FU 3 days with costume maker. documented in this enc ounter Plan of [...] [place] | | | | | | [address] | | | | | | | | +--------+---------+ + + + | 11/24/ | Office | Cardiology | [place], | | | 2019 | Visit | | [address] | | | | | | [place], | | | | | | [place] [address] | | | | | | [phone] | | | | | | | | +--------+---------+ + + + documented as of this encounter Visit Diagnoses + + | Diagnosis | + + | COPD exacerbation (HCC) - Primary Obstructive chronic bronchitis with exacerbation | + + documented in this encounter
--- OUTSIDE RECORDS SUMMARY | ~2019-01-15 | XMS | Encounter Summary ---
Demographics + + + | Address | [address] | | | [place] [address] | + + + | Home Phone | | + + + | Preferred Language | Unknown | + + + | Marital Status | Single | + + + | Buddhism Affiliation | [id number] | + + + [...] Team Providers + +------+ + | Care Change Person Name | Role | Phone | + +------+ + | Yong Cherry DO | PCP | | + +------+ + Reason for Visit + + + | Reason | Comments | + + + | Abdominal Pain | low | + + + | Urinary Complaint | | + + + Encounter Details +--------+ + + + + | Date | Type | Department | Care Team | Description | +--------+ + + + + | 12/15/ | Emergency | [facility] | [place] | Lower abdominal pain | | 2018 | | [facility] | Ozzy Kim MD [address] | (Primary Dx) | | | | [place] [address] | [facility] | | | | | [place] | [place] [address] | | | | | [address] | [phone] | | | | | [phone] | | | +--------+ + + + [...] + + + | Blood Pressure | 99/55 | 12/15/2017 9:16 AM | | | | | PDT | | + + + + + | Pulse | 58 | 12/15/2017 9:16 AM | | | | | PDT | | + + + + + | Temperature | 36.4 C (97.5 F) | 12/15/2017 7:08 AM | | | | | PDT | | + + + + + | Respiratory Rate | 18 | 12/15/2017 7:08 AM | | | | | PDT | | + + + + + | Oxygen Saturation | 99% | 12/15/2017 9:16 AM | | | | | PDT | | + + + + + | Inhaled Oxygen | - | - | | | Concentration | | | | + + + + + | Weight | 73 kg (161 lb) | 12/15/2017 7:08 AM | | | | | PDT | | + + + + + | Height | 154.9 cm (5' 1") | 12/15/2017 7:08 AM | | | | | PDT | | + + + + + | Body Mass Index | 30.42 | 12/15/2017 7:08 AM | | | | | PDT [...] as of this encounter Discharge Instructions Instructions Ozzy Louis MD - 12/15/2017Home and rest Drink plenty of fluids [place] for pain control Return here or see your PCP if not improving documented in this encounter Medications at Time of [...] hydrOXYzine | Take 1 tablet by | | 0 | 11/04/19 | | | hydrochloride | mouth Daily. | | | 18 | | | (ATARAX) 25 mg | | [...] | | | | | order to [facility]. | | | | | [...] | | | | send order to [facility] | | | | | | | [facility]. | | | | | | | [...] | | (FORMERLY [facility]) | | | | | | + + + +---------+ + + | digoxin (LANOXIN) | TAKE 1 TABLET BY | 30 | 2 | 11/19/19 | | | 125 mcg tablet | MOUTH DAILY | tablet | | 18 | 8 | + + + +---------+ [...] | | ([facility]LY [facility]) | | | | | | + + + +---------+ + + | | Take 1-2 tablets by | 10 | 0 | 12/16/19 | | | HYDROcodone-acetamin | mouth EVERY 4 TO 6 | tablet | | 18 | 9 | | ophen (NORCO) 5-325 | HOURS NEEDED for | | | | | | mg per tablet | Pain. | | | | | + [...] + + + +---------+ + + | magnesium oxide | Take 1 tablet by | 30 | 5 | 11/13/19 | | | (MAG-OX) 400 mg | mouth Daily. | tablet | | 18 | 9 | | tablet | | | | [...] + +---------+ + + | oxybutynin | TAKE ONE TABLET BY | 60 | 11 | 07/30/19 | | | (DITROPAN) 5 mg | MOUTH TWICE DAILY | tablet | | 18 | 8 | | tablet | | | | | | + + + +---------+ + + | pantoprazole | TAKE 1 TABLET BY | 90 | 1 | 07/01/19 | | | (PROTONIX) 40 mg | MOUTH EVERY MORNING | tablet | | 18 | 8 | | tablet | BEFORE BREAKFAST | | | | | + + + +---------+ + + | potassium chloride | Take 1 tablet by | | 0 | 11/11/19 | | | (KLOR-CON M20) 20 | mouth Daily. | | | 18 | 9 | | mEq ER tablet | | | | | | + + + +---------+ + + | propranolol | Take 10 mg by mouth | | 0 | | | | (INDERAL) 10 mg | 2 times daily. She | | | | 8 | | tablet | takes this daily | | | | | + + + +---------+ + + | SUMAtriptan | Take 100 mg by mouth | | 0 | 05/21/19 | | | (IMITREX) 100 mg | as needed. | | | 18 | 9 | | tablet | | | | [...] [place] | | | | | | [id number] | | | | | | | | +--------+---------+ + + + | 11/24/ | Office | Cardiology | [place] | | | 2020 | Visit | | SINDHU Erickson [address] | | | | | | [place], | | | | | | [place] [address] | | | | | | [phone] | | | | | | | | +--------+---------+ + + + + +------+--------+ + + | Name | Type | Priori | Associated Diagnoses | Date/Time | | | | ty | | | + +------+--------+ + + | ED INFORMATION | [facility] | Routin | | 12/15/2017 6:57 AM | | EXCHANGE | | e | | PDT | + +------+--------+ + + documented as of this encounter Procedures + +--------+ + + + | Procedure Name | Priori | Date/Time | Associated Diagnosis | Comments | | | ty | | | | + +--------+ + + + | CT ABDOMEN PELVIS W | STAT | 12/15/2017 | | Results for this | | CONTRAST | | 8:19 AM | | procedure are in the | | | | PDT | | results section. | + +--------+ + + + | URINALYSIS, | Routin | 12/15/2017 | | Results for this | | MICROSCOPIC ONLY, | e | 7:49 AM | | procedure are in the | | WITH CULTURE IF | | PDT | | results section. | | INDICATED | | | | | + +--------+ + + + | CBC WITH | STAT | 12/15/2017 | | Results for this | | DIFFERENTIAL | | 7:49 AM | | procedure are in the | | | | PDT | | results section. | + +--------+ + + + | COMPREHENSIVE | STAT | 12/15/2017 | | Results for this | | METABOLIC PANEL | | 7:49 AM | | procedure are in the | | | | PDT | | results section. | + +--------+ + + + | POCT URINALYSIS, | STAT | 12/15/2017 | | Results for this | | AUTO WITH CONF | | 7:18 AM | | procedure are in the | | | | PDT | | results section. | + +--------+ + + + | ED INFORMATION | Routin | 12/15/2017 | | | | EXCHANGE | e | 6:57 AM | | | | | | PDT | | | + +--------+ + + + +---+--------+ | | | | | Proced | | | ure | | | Note - | | | Vic, | | | Lab In | | | | | | Hlseve | | | n - | | | 10/22/ | | | 2018 | | | 6:58 | | | AM PDT | | | | | | Format | | | ting | | | of | | | this | | | note | | | might | | | be | | | differ | | | ent | | | from | | | the | | | origin | | | al.VIC | | | E?NOTI | | | FICATI | | | ON?10/ | | | 22/201 | | | 8 | | | 06:55? | | | HODGEN | | | , | | | GRETCH | | | EN | | | W?MRN: | | | | | | [id number] | | | [id number] | | | his | | | patien | | | t has | | | regist | | | ered | | | at the | | | | | | [facility] | | | h | | | Pediat | | | rics | | | Oumou | | | d | | | Emerge | | | ncy | | | Depart | | | ment | | | For | | | more | | | inform | | | ation | | | visit: | | | | | | https: | | | //secu | | | re.vic | | | ecarep | | | tevin.co | | | m/candace | | | ent/03 | | | [id number] | | | -5818- | | | [id number] | | | [id number] | | | [id number] | | | [id number] | | | Securi | | | ty | | | Events | | | No | | | recent | | | | | | Securi | | | ty | | | Events | | | | | | curren | | | tly on | | | | | | fileED | | | Care | | | Guidel | | | inesTh | | | ere | | | are | | | curren | | | tly no | | | ED | | | Care | | | Guidel | | | sen | | | in | | | [facility] | | | for | | | this | | | patien | | | t. | | | Please | | | check | | | your | | | facili | | | ty's | | | medica | | | l | | | record | | | s | | | system | | | .Recen | | | t | | | Emerge | | | ncy | | | Depart | | | ment | | | Visit | | | [facility] | | | yAdmit | | | Date | | | Facili | | | ty | | | City | | | State | | | Type | | | Major | | | Type | | | Diagno | | | ses or | | | Chief | | | | | | Compla | | | int | | | Oct | | | 22, | | | 2018 | | | [facility] | | | h | | | Pediat | | | rics | | | [place] | | | d | | | [place] | | | [place] | | | Emerge | | | ncy | | | Emerge | | | ncy | | | poss | | | UTI | | | E.D. | | | Visit | | | Count | | | (12 | | | mo.)Fa | | | cility | | | | | | Visits | | | Low | | | Acuity | | | | | | [facility] | | | h | | | Pediat | | | rics | | | [place] | | | d 6 0 | | | Total | | | 6 0 | | | Note: | | | Visits | | | | | | indica | | | te | | | total | | | known | | | visits | | | . | | | Medica | | | id Low | | | | | | Acuity | | | Dx | | | are | | | the | | | number | | | of | | | primar | | | y | | | diagno | | | ses on | | | the | | | Medica | | | id's | | | Low | | | Acuity | | | dx | | | list. | | | | | | Recent | | | | | | Inpati | | | ent | | | Visit | | | Summar | | | yNo | | | record | | | ed | | | inpati | | | ent | | | visits | | | . PDMP | | | | | | Report | | | Rx | | | Detail | | | s (6 | | | Mo.)Fi | | | ll | | | Date | | | Drug | | | Descri | | | ption | | | Qty. | | | Prescr | | | iber | | | CS MED | | | | | | 2018-0 | | | 9-30 | | | TRAMAD | | | OL HCL | | | 50 MG | | | | | | TABLET | | | 120 | | | YONG | | | | | | [place] | | | HEATHER 4 | | | 20 | | | 2018-0 | | | 9-01 | | | TRAMAD | | | OL HCL | | | 50 MG | | | | | | TABLET | | | 120 | | | YONG | | | | | | [place] | | | HEATHER 4 | | | 20 | | | 2018-0 | | | 8-29 | | | DIAZEP | | | AM 10 | | | MG | | | TABLET | | | 1 | | | YONG | | | | | | [place] | | | HEATHER 4 | | | 0 | | | 2018-0 | | | 8-02 | | | TRAMAD | | | OL HCL | | | 50 MG | | | | | | TABLET | | | 120 | | | YONG | | | | | | [place] | | | HEATHER 4 | | | 20 | | | 2018-0 | | | 7-03 | | | TRAMAD | | | OL HCL | | | 50 MG | | | | | | TABLET | | | 120 | | | YONG | | | | | | [place] | | | HEATHER 4 | | | 20 | | | 2018-0 | | | 6-05 | | | HYDROC | | | ODONE- | | | ACETAM | | | IN | | | 5-325 | | | MG 30 | | | GENE | | | AMAYA | | | 2 | | | 37.5 | | | 2018-0 | | | 5-31 | | | TRAMAD | | | OL HCL | | | 50 MG | | | | | | TABLET | | | 120 | | | YONG | | | | | | [place] | | | HEATHER 4 | | | 20 | | | 2018-0 | | | 5-03 | | | TRAMAD | | | OL HCL | | | 50 MG | | | | | | TABLET | | | 120 | | | YONG | | | | | | [place] | | | HEATHER 4 | | | 20 Rx | | | Summar | | | y (12 | | | Mo.)Me | | | tric | | | Count | | | CS | | | II-V | | | Rx 14 | | | CS-II | | | Rx 2 | | | Quanti | | | ty | | | Dispen | | | sed | | | 1,363 | | | Unique | | | | | | Prescr | | | ibers | | | 3 | | | Unique | | | | | | Pharma | | | cies 1 | | | | | | Benzos | | | 1 | | | Opioid | | | s 13 | | | Long | | | Acting | | | | | | Opioid | | | s 0 | | | Care | | | Provid | | | ersPro | | | vider | | | PRC | | | Type | | | Phone | | | Fax | | | Servic | | | e | | | Dates | | | YONG | | | | | | [place] | | | HEATHER | | | Primar | | | y Care | | | | | | (509) | | | [phone] | | | [phone] | | | Curren | | | t | | | Criter | | | ia met | | | PDMP | | | | | | Medica | | | id 5 | | | in | | | 12Know | | | n | | | Aliase | | | sNo | | | known | | | aliase | | | s. The | | | above | | | | | | inform | | | ation | | | is | | | provid | | | ed for | | | the | | | sole | | | purpos | | | e of | | | patien | | | t | | | treatm | | | ent. | | | Use of | | | this | | | inform | | | ation | | | beyond | | | the | | | terms | | | of | | | Data | | | Sharin | | | g | | | Memora | | | ndum | | | of | | | Unders | | | tandin | | | g and | | | Licens | | | e | | | Agreem | | | ent is | | | | | | prohib | | | ited. | | | In | | | certai | | | n | | | cases | | | not | | | all | | | visits | | | may | | | be | | | repres | | | ented. | | | | | | Consul | | | t the | | | aforem | | | ention | | | ed | | | facili | | | ties | | | for | | | additi | | | onal | | | inform | | | ation. | | | ? | | | 2017 | | | [employer] | | | tive | | | Med[employer] | | | l | | | [employer] | | | logies | | | , [employer] | | | - | | | [place] | | | [place] | | | [place], | | | [place] - | | | [email or web address]@c | | | ollect | | | ivemed | | | icalte | | | ch.com | | | | +---+--------+ documented in this encounter Results CT Abdomen Pelvis w Contrast (12/15/2017 8:19 AM PDT) + + | Specimen | + + | | + + + + + | Narrative | Performed At | + + + | CT ABDOMEN PELVIS W CONTRAST 12/15/2017 8:09 AM HISTORY: | [facility] | | Abdominal Pain. COMPARISON: Multiple priors. PROTOCOL: Axial | | | images of the abdomen and pelvis were obtained after administration | | | of 85 mL Omnipaque 350. Coronal and sagittal reformations were | | | acquired. FINDINGS: Mild right and minimal left lower lobe | | | atelectasis are present. Heart size is normal. There is some | | | patchy low attenuation in the anterior left hepatic lobe consistent | | | with fat infiltration. The gallbladder is normal. Biliary ducts are | | | unremarkable. The spleen is unremarkable. The pancreas | | | demonstrates normal parenchyma and a normal pancreatic duct. Adrenal | | | glands are normal. The right kidney and visualized ureter are | | | normal. There is a tiny cyst in the posterior aspect of the left | | | kidney that is too small to characterize. The left ureter is normal. | | | Surgical clips are at the gastroesophageal junction. Small bowel | | | is unremarkable. There is some high density material in the tip of | | | the appendix measuring 5 mm with no evidence for appendicitis | | | otherwise. There is mild sigmoid diverticulosis. Aorta is | | | nonaneurysmal. The iliac arteries are normal. There is no significant | | | abnormality in the portal veins, mesenteric veins, or systemic veins. | | | Multiple phleboliths are in the abdomen and pelvis that remain | | | stable. No enlarged lymph nodes are visualized within the omentum | | | or retroperitoneum. There is no evidence for ascites or free air. | | | Bladder is normal. There has been previous hysterectomy. | | | Body wall soft tissue structures are normal. There is mild right | | | curvature of the lumbar spine. IMPRESSION - No acute findings. | | | Postoperative changes at gastroesophageal junction. Dictated | | | and Signed by: Kobe Lentz MD Electronically signed: 12/15/2017 | | | 8:31 AM | | + + + + + | Procedure Note | + + | Vic, Rad Results In - 12/15/2017 8:[address] ABDOMEN PELVIS W CONTRAST 12/15/2017 | | 8:09 AMHISTORY: Abdominal Pain.COMPARISON: Multiple priors.PROTOCOL: Axial images of | | the abdomen and pelvis were obtained afteradministration of 85 mL Omnipaque 350. Coronal | | and sagittal reformations wereacquired.FINDINGS:Mild right and minimal left lower lobe | | atelectasis are present. Heart size isnormal.There is some patchy low attenuation in the | | anterior left hepatic lobeconsistent with fat infiltration. The gallbladder is normal. | | Biliary ducts areunremarkable.The spleen is unremarkable. The pancreas demonstrates | | normal parenchyma and anormal pancreatic duct. Adrenal glands are normal.The right | | kidney and visualized ureter are normal.There is a tiny cyst in the posterior aspect of | | the left kidney that is toosmall to characterize. The left ureter is normal.Surgical | | clips are at the gastroesophageal junction. Small bowel isunremarkable. There is some | | high density material in the tip of the appendixmeasuring 5 mm with no evidence for | | appendicitis otherwise. There is mildsigmoid diverticulosis.Aorta is nonaneurysmal. The | | iliac arteries are normal. There is no significantabnormality in the portal veins, | | mesenteric veins, or systemic veins. Multiplephleboliths are in the abdomen and pelvis | | that remain stable.No enlarged lymph nodes are visualized within the omentum or | | retroperitoneum.There is no evidence for ascites or free air.Bladder is normal.There has | | been previous hysterectomy.Body wall soft tissue structures are normal. There is mild | | right curvature ofthe lumbar spine.IMPRESSION -No acute findings.Postoperative changes | | at gastroesophageal junction.Dictated and Signed by: Kobe Lentz MD Electronically | | signed: 12/15/2017 8:31 AM | |The right kidney and visualized ureter are normal. | | | |There is a tiny cyst in the posterior aspect of the left kidney that is too | |small to characterize. The left ureter is normal. | | | |Surgical clips are at the gastroesophageal junction. Small bowel is | |unremarkable. There is some high density material in the tip of the appendix | |measuring 5 mm with no evidence for appendicitis otherwise. There is mild | |sigmoid diverticulosis. | | | |Aorta is nonaneurysmal. The iliac arteries are normal. There is no significant | |abnormality in the portal veins, mesenteric veins, or systemic veins. Multiple | |phleboliths are in the abdomen and pelvis that remain stable. | | | |No enlarged lymph nodes are visualized within the omentum or retroperitoneum. | | | |There is no evidence for ascites or free air. | | | |Bladder is normal. | | | |There has been previous hysterectomy. | | | |Body wall soft tissue structures are normal. There is mild right curvature of | |the lumbar spine. | | | |IMPRESSION - | |No acute findings. | | | |Postoperative changes at gastroesophageal junction. | | | |Dictated and Signed by: Kobe Lentz MD | | Electronically signed: 12/15/2017 8:31 AM | + + + +---------+ + + | Performing | Address | City/State/Zipcode | Phone Number | | Organization | | | | + +---------+ + + | [facility] | | | | + +---------+ + + Comprehensive Metabolic Panel (12/15/2017 7:49 AM PDT) + + + + + + | Component | Value | Ref Range | Performed | Pathologist | | | | | At | Signature | + + + + + + | Na | 139 | 136 - 149 | [facility] | | | | | mmol/L | [facility] | | | | | | [facility] | | | | | | [facility] - | | | | | | LABORATORY | | + + + + + + | K | 3.8 | 3.5 - 5.1 | [facility] | | | | | mmol/L | [facility] | | | | | | [facility] | | | | | | [facility] - | | | | | | LABORATORY | | + + + + + + | Cl | 106 | 98 - 109 mmol/L | [facility] | | | | | | [facility] | | | | | | [facility] | | | | | | C[facility] - | | | | | | LABORATORY | | + + + + + + | CO2 | 22 (L) | 24 - 31 mmol/L | [facility] [...] + + + + | Glucose | 150 (H) | 70 - 109 mg/dL | [facility] | | | | | | [facility] | | | | | | [facility] | | | | | | C[facility] - | | | | | | LABORATORY | | + + + + + + | BUN | 4 (L) | 7 - 18 mg/dL | [facility] | | | | | | [facility] | | | | | | [facility] | | | | | | [facility] - | | | | | | LABORATORY | | + + + + + + | Creatinine | 0.79 | 0.60 - 1.30 | [facility] | | | | | mg/dL | [facility] | | | | | | [facility] | | | | | | C[facility] - | | | | | | LABORATORY | | + + + + + + | eGFR if not | >60Comment: GLOMERULAR | >=60 | [facility] | | | | FILTRATION | mL/min/1.73m2 | [facility] | | | POLISH | RATE,ESTIMATED | | MEDICAL | | | | mL/min/1.20q0Voee than | | CENTER - | | [...] + + + + | Calcium | 8.4 | 8.3 - 10.5 | [facility] | | | | | mg/dL | [facility] | | | | | | [facility] | | | | | | [facility] - | | | | | | LABORATORY | | + + + + + + | Albumin | 3.1 (L) | 3.2 - 5.0 g/dL | [facility] | | | | | | [facility] | | | | | | MEDICAL | | | | | | CENTER - | | | | | | LABORATORY | | + + + + + + | Bilirubin | 0.5Comment: This is an | 0.1 - 1.5 mg/dL | [facility] | | | Total | appended report. These | | [facility] | | | | results have been | | MEDICAL | | | | appended to a previously | | CENTER - | | | | preliminary verified | | LABORATORY | | | | report. | | | | + + + + + + | Total | 5.7 (L) | 6.0 - 7.8 g/dL | [facility] | | | Protein | | | [facility] | | | | | | MEDICAL | | | | | | CENTER - | | | | | | LABORATORY | | + + + + + + | AST | 30Comment: This is an | 10 - 42 U/L | [facility] | | | | appended report. These | | [facility] | | | | results have been | | MEDICAL | | | | appended to a previously | | CENTER - | | | | preliminary verified | | LABORATORY | | | | report. | | | | + + + + + + | ALT | 16Comment: This is an | 6 - 45 U/L | [facility] | | | | appended report. These | | [facility] | | | | results have been | | MEDICAL | | | | appended to a previously | | CENTER - | | | | preliminary verified | | LABORATORY | | | | report. | | | | + + + + + + | Alkaline | 77Comment: This is an | 40 - 110 U/L | [facility] | | | Phosphatase | appended report. These | | [facility] | | | | results have been | | MEDICAL | | | | appended to a previously | | CENTER - | | | | preliminary verified | | LABORATORY | | | | report. | | | | + + + + + + | Globulin | 2.6 | 2.1 - 3.8 g/dL | [facility] | | | | | | [facility] | | | | | | [facility]ICAL | | | | | | CENTER - | | | | | | LABORATORY | | + + + + + + | Albumin/Jewell | 1.2 | 0.8 - 2.0 | [facility] | | | bulin Ratio | | | [facility] | | | | | | MEDICAL | | | | | | CENTER - | | | | | | LABORATORY | | + + + + + + | BUN/Creatin | 5.1 | | [facility] | | | ine [...] + | [facility] | [address] | [place] | [phone] | | [facility] | | [id number] | | | - LABORATORY | | | | + + + + + CBC with Differential (12/15/2017 7:49 AM PDT) + + + + + + | Component | Value | Ref Range | Performed | Pathologist | | | | | At | Signature | + + + + + + | WBC | 12.8 (H) | 4.0 - 11.0 K/uL | [facility] | | | | | | [facility] | | | | | | MEDICAL | | | | | | CENTER - | | | | | | LABORATORY | | + + + + + + | RBC | 4.66 | 3.70 - 5.20 | [facility] | | | | | M/uL | [facility] | | | | | | MEDICAL | | | | | | CENTER - | | | | | | LABORATORY | | + + + + + + | Hemoglobin | 12.2 | 11.5 - 16.0 | [facility] | | | | | g/dL | [facility] | | | | | | [facility] | | | | | | CENTER - | | | | | | LABORATORY | | + + + + + + | Hematocrit | 37.9 | 34.0 - 47.0 % | [facility] | | | | | | [facility] | | | | | | [facility]ICAL | | | | | | CENTER - | | | | | | LABORATORY | | + + + + + + | MCV | 81.3 (L) | 83.0 - 101.0 fL | [facility] | | | | | | [facility] | | | | | | [facility] | | | | | | CENTER - | | | | | | LABORATORY | | + + + + + + | MCH | 26.2 (L) | 28.0 - 35.0 pg | [facility] | | | | | | [facility] | | | | | | MEDICAL | | | | | | CENTER - | | | | | | LABORATORY | | + + + + + + | MCHC | 32.2 | 32.0 - 36.0 | [facility] | | | | | g/dL | [facility] | | | | | | MEDICAL | | | | | | CENTER - | | | | | | LABORATORY | | + + + + + + | RDW-CV | 13.8 | <15.0 % | [facility] | | | | | | [facility] | | | | | | MEDICAL | | | | | | CENTER - | | | | | | LABORATORY | | + + + + + + | RDW-SD | 40.7 | 35.1 - 46.3 fL | [facility] | | | | | | [facility] | | | | | | [facility] | | | | | | CENTER - | | | | | | LABORATORY | | + + + + + + | Platelet | 487 (H) | 140 - 440 K/uL | [facility] | | | Count | | | [facility] | | | | | | MEDICAL | | | | | | CENTER - | | | | | | LABORATORY | | + + + + + + | MPV | 8.6 | 6.5 - 12.4 fL | [facility] | | | | | | [facility] | | | | | | [facility]ICAL | | | | | | CENTER - | | | | | | LABORATORY | | + + + + + + | % | 58.7 | 45.0 - 82.0 % | [facility] | | | Neutrophils | | | [facility] | | | | | | MEDICAL | | | | | | CENTER - | | | | | | LABORATORY | | + + + + + + | % | 31.7 | 20.0 - 45.0 % | [facility] | | | Lymphocytes | | | [facility] | | | | | | MEDICAL | | | | | | CENTER - | | | | | | LABORATORY | | + + + + + + | % Monocytes | 6.6 | 4.0 - 12.0 % | [facility] | | | | | | [facility] | | | | | | [facility]ICAL | | | | | | CENTER - | | | | | | LABORATORY | | + + + + + + | % | 2.0 | 0.0 - 5.0 % | [facility] | | | Eosinophils | | | [facility] | | | | | | MEDICAL | | | | | | CENTER - | | | | | | LABORATORY | | + + + + + + | % Basophils | 0.5 | 0.0 - 1.0 % | [facility] | | | | | | [facility] | | | | | | [facility] | | | | | | [facility] - | | | | | | LABORATORY | | + + + + + + | % Immature | 0.5 (H)Comment: | 0.0 - 0.4 % | [facility] | | | Granulocyte | Preliminary studIes have | | [facility] | | | s | indicated the IG% | | MEDICAL | | | | and/or IG# show promise | | CENTER - | | | | as an early screen for | | LABORATORY | | | | infection. | | | | + + + + + + | Absolute | 7.52 | 1.80 - 8.50 | [facility] | | | Neutrophils | | K/uL | [facility] | | | | | | [facility]ICAL | | | | | | CENTER - | | | | | | LABORATORY | | + + + + + + | Absolute | 4.06 (H) | 0.60 - 3.20 | [facility] | | | Lymphocytes | | K/uL | [facility] | | | | | | [facility]ICAL | | | | | | CENTER - | | | | | | LABORATORY | | + + + + + + | Absolute | 0.84 | 0.00 - 1.00 | [facility] | | | Monocytes | | K/uL | [facility] | | | | | | [facility]ICAL | | | | | | CENTER - | | | | | | LABORATORY | | + + + + + + | Absolute | 0.26 | 0.00 - 0.40 | [facility] | | | Eosinophils | | K/uL | [facility] | | | | | | MEDICAL | | | | | | CENTER - | | | | | | LABORATORY | | + + + + + + | Absolute | 0.06 | 0.00 - 0.10 | [facility] | | | Basophils | | K/uL | [facility] | | | | | | [facility]ICAL | | | | | | CENTER - | | | | | | LABORATORY | | + + + + + + | Absolute | 0.06 (H) | 0.00 - 0.03 | [facility] | | | Immature | | K/uL | [facility] | | | Granulocyte | | | MEDICAL | | | s | | | CENTER - | | | | | | LABORATORY | | + + + + + + | % nRBC | 0 | 0 - 2 per 100 | [facility] | | | | | WBC's | [facility] | | | | | | MEDICAL | | | | | | CENTER - | | | | | | LABORATORY | | + + + + + + | Absolute | 0.00 | 0.00 - 0.01 | [facility] | | | nRBC | | K/uL | [facility] | | | | [...] ST. | [address] | [place], [place] | [phone] | | [facility] | | [id number] | | | - LABORATORY | | | | + + + + + Urinalysis, Microscopic Only, with Culture if Indicated (12/15/2017 7:49 AM PDT) + + + + + + | Component | Value | Ref Range | Performed | Pathologist | | | | | At | Signature | + + + + + + | WBC UA | 0-2 | 0 - 2 [...] + + + + | SQUAMOUS | 25-50 (A) | 0 - 2 /LPF | [...] + | [facility] | [address] | [place] | [phone] | | [facility] | | [address] | | | - LABORATORY | | | | + + + + + POCT Urinalysis Dipstick Automated (12/15/2017 7:18 AM PDT) + + + + + [...] 1.001 - 1.030 | | | | Oscar, | | | | | | UA, [...] + | Diagnosis | + + | Lower abdominal pain - Primary Abdominal pain, other specified site | + + documented in this encounter Administered Medications + +--------+ +--------+------+------+ | Medication Order | MAR | Action | Dose | Rate | Site | | | Action | Date | | | | + +--------+ +--------+------+------+ | iohexol (OMNIPAQUE 350) 350 | Given | 12/16/19 | 85 mLs | | | | mg/mL injection 85 mL 85 mL, | | 18 8:20 | | | | | Intravenous, ONCE PRN, Other, | | AM PDT | | | | | Starting 12/15/17 at 0820, | | | | | | | For 1 dose, Cat Scanner | | | | | | + +--------+ +--------+------+------+ +---+---+ | | | +---+---+ + +-------+ +------+---+---+ | morphine injection 4 mg 4 mg, | Given | 12/16/19 | 4 mg | | | | Intravenous, ONCE, 12/15/17 | | 18 7:46 | | | | | at 0725, For 1 dose | | AM PDT | | | | + +-------+ +------+---+---+ +---+---+ | | | +---+---+ + +---------+ +---------+-------+---+ | sodium chloride 0.9% (NS) bolus | New Bag | 12/16/19 | 500 mLs | 500 | | | 500 mL 500 mL, Intravenous, | | 18 7:46 | | mL/hr | | | Administer over 1 Hours, ONCE, | | AM PDT | | | | | 12/15/17 at 0725, For 1 dose | | | | | | + +---------+ +---------+-------+---+ +---+---+ | | | +---+---+ documented in this encounter
--- OUTSIDE RECORDS SUMMARY | ~2019-01-15 | XMS | Encounter Summary ---
Demographics + + + | Address | [address] | | | [place] [address] | + + + | Home Phone | | + + + | Preferred Language | Unknown | + + + | Marital Status | Single | + + + | Oriental Orthodox Affiliation | 1041 | + + [...] Team Providers + +------+ + | Care Stockroom Selector Name | Role | Phone | + +------+ + PCP | Unavailable | + +------+ + Encounter Details +--------+ + + + + | Date | Type | Department | Care Team | Description | +--------+ + + + + | 10/18/ | [facility] | [facility] | | | | 2008 - | Encounter | MED CTR OP REHAB | | | | | | [address] | | | | 10/24/ | | [place] [address] | | | | 2008 | | [phone] | | | +--------+ + + + [...] [place] | | | | | | [address] | | | | | | | | +--------+---------+ + + + | 11/24/ | Office | Cardiology | [place], | | | 2020 | Visit | | SINDHU Erickson [address] | | | | | | [place], | | | | | | [place] [address] | | | | | | [phone] | | | | | | | | +--------+---------+ + + + documented as of this encounter Visit Diagnoses Not on filedocumented in this encounter"
--- OUTSIDE RECORDS SUMMARY | ~2019-01-15 | XMS | Encounter Summary ---
Demographics + + + | Address | [address] | | | [place] [address] | + + + | Home Phone [...] + + + | Author | [facility] | | | and [place] | + + + | Organization | [facility] | | [...] Team Providers + +------+ + | Care Door To Door Lead Generation Name | Role | Phone | + +------+ + | Juan Cherry DO | PCP | | + +------+ + Encounter Details +--------+ + + + + | Date | Type | Department | Care Team | Description | +--------+ + + + + | 02/12/ | Hospital | [facility] | Nestor Martinez, | | | 2012 | Encounter | MED CTR EMERGENCY | MD [address] | | | | | CENTER [address] | [place], [place] | | | | | [place], [place] | [address] | | | | | [address] | | | | | | [phone] | | | +--------+ + + + [...] | | | | | order to [facility]. | | | | | + [...] | | | | send order to [facility] | | | | | | | [facility]. | | | | | [...] (PROAIR | Inhale 2 puffs into | | 0 | | | | HFA) 90 mcg/puff | the lungs every 6 | | | | 4 | | inhaler | hours as needed. | | | [...] + +---------+ + + | predniSONE | 20 mg 2 times daily. | | 0 | 09/08/19 | | | (DELTASONE) 10 mg | | | | 13 | 3 | | tablet | | | | [...] [place] | | | | | | [address] | | | | | | | | +--------+---------+ + + + | 11/24/ | Office | Cardiology | [place], | | | 2019 | Visit | | SINDHU Erickson [address] | | | | | | [place], | | | | | | [place] [address] | | | | | | [phone] | | | | | | | | +--------+---------+ + + + documented as of this encounter Visit Diagnoses Not on filedocumented in this encounter"
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
--- OUTSIDE RECORDS SUMMARY | ~2019-01-15 | XMS | Encounter Summary ---
Demographics + + + | Address | [address] | | | [place] [address] | + + + | Home Phone [...] Team Providers + +------+ + | Care Console Assembler Name | Role | Phone | + +------+ + | Juan Cherry DO | PCP | | + +------+ + Reason for Visit + + + | Reason | Comments | + + + | Abdominal Pain | Times 3 days Room # 3 | + + + Encounter Details +--------+---------+ + + + | Date | Type | Department | Care Team | Description | +--------+---------+ + + + | 03/25/ | [facility] | [facility] | Daryl Hargrove | Diverticulitis of | | 2014 | Visit | CARE [address] | Ernie Sanabria MD | large intestine | | | | [place], [place] | [address] | without perforation | | | | [address] | [place] | or abscess without | | | | [phone] | [address] | bleeding (Primary | | | | | | Dx); Abdominal pain | +--------+---------+ + + + Social History [...] + + + | Blood Pressure | 86/61 | 03/25/2014 12:05 PM | | | | | PST | | + + + + + | Pulse | 105 | 03/25/2014 12:05 PM | | | | | PST | | + + + + + | Temperature | 36.4 C (97.5 F) | 03/25/2014 12:05 PM | | | | | PST | | + + + + + | Respiratory Rate | 22 | 03/25/2014 12:05 PM | | | | | PST | | + + + + + | Oxygen Saturation | 95% | 03/25/2014 12:05 PM | | | | | PST | | + + + + + | Inhaled Oxygen | - | - | | | Concentration | | | | + + + + + | Weight | 73.1 kg (161 lb 3.2 | 03/25/2014 12:05 PM | | | | oz) | PST | | + + + + + | Height | 157.5 cm (5' 2") | 03/25/2014 12:05 PM | | | | | PST | | + + + + + | Body Mass Index | 29.48 | 03/25/2014 12:05 PM | | | | | PST [...] of this encounter Patient Instructions Patient Instructions Daryl Hargrove Jr., MD - 03/25/2014 1:05 PM PST Follow-up with your doctor or the clinic if not improving in 5 days. Take medication as directed Increase fluid intake Recheck sooner, in the clinic, with your doctor or in the ER, if your symptoms worsen or ne w problems develop 1: 05 PM PST documented in this encounter Progress Notes Daryl Hargrove Jr., MD - 03/25/2014 1:01 PM PSTRosario Malik presents with a three-day history of left lower quadrant pain similar she's had in the past with divertic ulitis. She denies fever, vomiting or diarrhea. She denies dysuria or flank pain. She's h ad a hysterectomy. Recent CT showed multiple diverticula. She has done well in the past on Cipro and Flagyl Physical exam: No acute distress, nontoxic in appearance Chest: Good breath sounds bilaterally without rales rhonchi or wheezes Heart: Regular rhythm without murmur gallop or rub Abdomen: Soft, bowel sounds normal, no tenderness to light palpation, tenderness in the lef t lower quadrant to deep palpation without guarding or rebound Dipstick urine: Is negative Diagnosis: Diverticulitis left lower quadrant documented in this encounter Plan of Treatment +--------+---------+ + + + | Date | Type | Specialty | Care Team | Description | +--------+---------+ + + + | 03/01/ | Office | Pulmonology | Mukul Clark MD | | | 2019 | Visit | | [address] | | | | | | [place] | | | | | | [id number] | | | | | | | | +--------+---------+ + + + | 11/24/ | Office | Cardiology | [place], | | | 2019 | Visit | | SINDHU Erickson [address] | | | | | | [place] | | | | | | [place] [address] | | | | | | [phone] | | | | | | | | +--------+---------+ + + + documented as of this encounter Procedures + +--------+ + + + | Procedure Name | Priori | Date/Time | Associated Diagnosis | Comments | | | ty | | | | + +--------+ + + + | POCT URINALYSIS, | Routin | 03/25/2014 | Diverticulitis of | Results for this | | AUTO WITH CONF | e | 11:57 AM | large intestine | procedure are in the | | | | PST | without perforation | results section. | | | | | or abscess without | | | | | | bleeding Abdominal | | | | | | pain | | + +--------+ + + + documented in this encounter Results POCT Urinalysis Dipstick Automated (03/25/2014 11:57 AM PST) + + + + + + | Component | Value | Ref Range | Performed | Pathologist | | | | | At | Signature | + + + + + + | Color, UA, | Light Yellow | Yellow, Light | | | | POC | | Yellow | | | + + + + + + | Clarity, | Clear | | | | | UA, POC | | | | | + + + + + + | Glucose, | 500 mg/dL (A) | Negative | | | [...] + + + + | Specific | 1.010 | 1.001 - 1.030 | | | | [place], | | | | | | UA, [...] + + + + | Urobilinoge | < 0.2 E.U./dl | 0.2, Negative, | | | | n, UA, POC | | Normal, < 0.2 | | | | | | mg/dL, 1 mg/dL, | | | | | | < 0.2 E.U./dl, | | | | | | 1.0 E.U./dL, | | | | | | 0.2 mg/dL | | | + + + + + + | Nitrite, | Negative | | | | | UA, POC [...] + | Diagnosis | + + | Diverticulitis of large intestine without perforation or abscess without bleeding - | | Primary Diverticulitis of colon (without mention of hemorrhage) | + + | Abdominal pain Abdominal pain, unspecified site | + + documented in this encounter
--- OUTSIDE RECORDS SUMMARY | ~2019-01-15 | XMS | Encounter Summary ---
Demographics + + + | Address | [address] | | | [place] [address] | + + + | Home Phone [...] Providers + +------+ + | Care Manager Fashion Name | Role | Phone | + [...] Pituitary | Shashi Witt, | [address] | | | | | adenoma | MD Need | [place], | | | | | ([facility]) | updated | [place] | | | | | Procedures | address | [address] | | | | | MRI Brain w | | Phone: | | | | | wo Contrast | | [phone] | | | | | | | Fax: | | | | | | | [phone] | +--------+--------+ + + + + Reason [...] Pituitary | Shashi Witt, | [address] | | | | | adenoma | MD Need | [place], | | | | | ([facility]) | updated | [place] | | | | | Procedures | address | [address] | | | | | MRI Brain w | | Phone: | | | | | wo Contrast | | [phone] | | | | | | | Fax: | | | | | | | [phone] | +--------+--------+ + + + + Encounter Details +--------+ + + + + | Date | Type | Department | Care Team | Description | +--------+ + + + + | 06/02/ | Hospital | [facility] | Shashi Segovia | Pituitary adenoma | | 2014 | Encounter | MED CTR MRI [address] MD Need updated | ([facility]) | | | | [place], | address | | | | | [place] [address] | | | | | | [phone] | | | +--------+ + + + [...] | | | | | order to [facility]. | | | | | [...] | | | | send order to [facility] | | | | | | | [facility]. | | | | [...] | | | | | | | ([facility]) | | | | | [...] [place] | | | | | | [address] | | | | | | | | +--------+---------+ + + + | 11/24/ | Office | Cardiology | [place], | | | 2019 | Visit | | SINDHU Erickson [address] | | | | | | [place], | | | | | | [place] [address] | | | | | | [phone] | | | | | | | [...] of 10 mL of Gadavist. Dedicated small [id number] | | | thin section imaging through [...] 10 mL ofGadavist. | | Dedicated small [id number] thin section imaging through thepituitary region before [...] + + | Performing | Address | City[facility] | Phone Number | | Organization | | | | + + + + + | [address] | [address] | [place] | [phone] | | [facility] | | [address] | | | - IMAGING | | [...]
--- OUTSIDE RECORDS SUMMARY | ~2019-01-15 | XMS | Encounter Summary ---
Demographics + + + | Address | [address] | | | [place] [address] | + + + | Home Phone [...] Providers + +------+ + | Care Director Information Security Name | Role | Phone | + +------+ + | Ozzy Delcid MD | PCP | | + +------+ + Encounter Details +--------+ + + + + | Date | Type | Department | Care Team | Description | +--------+ + + + + | 07/03/ | Hospital | [facility] | Freddy Hill | | | 2011 | Encounter | MED CTR EMERGENCY | MD JAMARI [address] | | | | | CENTER [address] | [place] | | | | | [place], [place] | [place] [address] | | | | | [address] | [phone] | | | | | [phone] | | | +--------+ + + + [...] | | | | | | [place] [address] | | | | | | [phone] | | | | | | | [...] Performed At | + + + | [facility] Diagnostic Imaging Department | [facility] | | [address] [facility] | [facility] | | PORTABLE CHEST CLINICAL | DIAG [...] Transcribed Date/Time: 07/05/2011 | | | 10:46 Recoater: <Electronically Signed by Cesar Singh | | | MD Mikal> 07/05/11 1343 | | + + + + + | Procedure Note | + + | Reed, Rad Conversion - 04/02/2013 5:18 PM [facility] | | Diagnostic Imaging Department [address] [facility] | | PORTABLE CHEST CLINICAL HISTORY: [...] 10:29 | |Transcribed Date/Time: 07/05/2011 10:46 | |Recoater: | |<Electronically Signed by Cesar Ren MD> [...]
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
--- OUTSIDE RECORDS SUMMARY | ~2019-01-15 | XMS | Encounter Summary ---
Demographics + + + | Address | [address] | | | [place] [address] | + + + | Home Phone | | + + + | Preferred Language | Unknown | + + + | Marital Status | Single | + + + | Sabianism Affiliation | [id number] | + + + | Race | Unknown | + + + | Ethnic Group | Unknown | + + + Author + + + | Author | [facility] | | | and [place] | + + + | Organization | [facility] | | | [...] Team Providers + +------+ + | Care And Rescue Fire Fighter Crash Fire Name | Role | Phone | + +------+ + | Juan Cherry DO | PCP | | + +------+ + Encounter Details +--------+ + + + + | Date | Type | Department | Care Team | Description | +--------+ + + + + | 04/15/ | Documentati | [facility] [place] | Rajwinder Monzon, | | | 2013 | on | PULMONARY [address] | Cert [place] | | | | | [place], | | | | | | [place] [address] | | | | | | [phone] | | | +--------+ + + + [...] [place] | | | | | | [address] | | | | | | | | +--------+---------+ + + + | 11/24/ | Office | Cardiology | [place], | | | 2019 | Visit | | SINDHU Erickson [address] | | | | | | [place], | | | | | | [place] [address] | | | | | | [phone] | | | | | | | | +--------+---------+ + + + documented as of this encounter Visit Diagnoses Not on filedocumented in this encounter"
--- OUTSIDE RECORDS SUMMARY | ~2019-01-15 | XMS | Encounter Summary ---
Demographics + + + | Address | [address] | | | [place] [address] | + + + | Home Phone [...] Team Providers + +------+ + | Care Child Welfare Social Worker Name | Role | Phone | + +------+ + | Juan Cherry DO | PCP | | + +------+ + Reason for Visit +--------+ + | Reason | Comments | +--------+ + | Other | shortness of breath | +--------+ + Encounter Details +--------+ + + + + | Date | Type | Department | Care Team | Description | +--------+ + + + + | 07/28/ | Telephone | [facility] [place] | Kevin Sandoval, | Other (shortness of | | 2014 | | PULMONARY [address] | MD [address] | breath) | | | | [place], | [place] | | | | | [place] [address] | [address] | | | | | [phone] | | | +--------+ + + + + Social History + + + +--------+------+ | Tobacco Use | Types | Packs/Day | Years | Date | | | | | Used | | + + + +--------+------+ | Light Tobacco Smoker | Cigarettes | 0.3 | 30 | | + + + +--------+------+ + +---+---+---+ | Smokeless Tobacco: | | | | | Never Used | | | | + +---+---+---+ + + | Comments: started smoking again at end of April 2014 | + + + + [...] [place] | | | | | | [address] | | | | | | | | +--------+---------+ + + + | 11/24/ | Office | Cardiology | [place], | | | 2019 | Visit | | SINDHU Erickson [address] | | | | | | [place], | | | | | | [place] [address] | | | | | | [phone] | | | | | | | | +--------+---------+ + + + documented as of this encounter Visit Diagnoses Not on filedocumented in this encounter"
--- OUTSIDE RECORDS SUMMARY | ~2019-01-15 | XMS | Encounter Summary ---
Demographics + + + | Address | [address] | | | [place] [address] | + + + | Home Phone [...] Team Providers + +------+ + | Care Terminal Carman Name | Role | Phone | + [...] | | | | | pulmonary | [address] | [address] | | | | | disease, | [place], | [place] | | | | | unspecified | [place] [address] | [place], [place] | | | | | COPD type | Phone: | [address] | | | | | (HCC) | [phone] | Phone: | | | | | Pulmonary | Fax: | [phone] | | | | | emphysema, | [phone] | Fax: | | | | | unspecified | | [phone] | | | | | emphysema | | | | | | | type ([facility]) | | | +--------+ + + + + + Encounter Details +--------+---------+ + + + | Date | Type | Department | Care Team | Description | +--------+---------+ + + + | 05/14/ | Office | [facility] | Jared Mcdonough, | Chronic obstructive | | 2017 | Visit | [facility] | [address] | pulmonary disease, | | | | REHABILITATION [address] | [address] [place], | unspecified COPD | | | | [address] [place] | [place] [address] | type (HCC) (Primary | | | | [place] [address] | [phone] | Dx); Pulmonary | | | | [phone] | | emphysema, | | | | [...] Desean Chris - 05/14/2016 3:39 PM PDT [facility]ABILITATION [address] [place] [address] Cardiac Rehab Date: 05/14/2016 Patient Information Patient [...] | | | | [place] | | | | | | [address] | | | | | | | | +--------+---------+ + + + | 11/24/ | Office | Cardiology | [place], | | | 2019 | Visit | | SINDHU Erickson [address] | | | | | | [place], | | | | | | [place] [address] | | | | | | [phone] | | | | | | | | +--------+---------+ + + + documented as of this encounter Visit Diagnoses + + | Diagnosis | + + | Chronic obstructive pulmonary disease, unspecified COPD type (HCC) - Primary | + + | Pulmonary emphysema, unspecified emphysema type (HCC) | + + documented in this encounter"
--- OUTSIDE RECORDS SUMMARY | ~2019-01-15 | XMS | Encounter Summary ---
Demographics + + + | Address | [address] | | | [place] [address] | + + + | Home Phone [...] Team Providers + +------+ + | Care Sports Physical Therapist Name | Role | Phone | + [...] Description | +--------+--------+ + + + | 01/26/ | Refill | [facility] | Andriy Weber | Medication Refill | | 2017 | | [address] | MD [address] | | | | | [place] | [facility] | | | | | [address] | [place] [address] | | | | | [phone] | [phone] | | | | | | | [...] [place] | | | | | | [address] | | | | | | | | +--------+---------+ + + + | 11/24/ | Office | Cardiology | [place], | | | 2019 | Visit | | SINDHU Erickson [address] | | | | | | [place], | | | | | | [place] [address] | | | | | | [phone] | | | | | | | | +--------+---------+ + + + documented as of this encounter Visit Diagnoses Not on filedocumented in this encounter"
--- OUTSIDE RECORDS SUMMARY | ~2019-01-15 | XMS | Encounter Summary ---
Demographics + + + | Address | [address] | | | [place] [address] | + + + | Home Phone [...] Team Providers + +------+ + | Care Barber Name | Role | Phone | + +------+ + | Juan Cherry DO | PCP | | + +------+ + Reason for Visit Evaluate & Treat (Routine) +--------+--------+ + + + + | Status | Reason | Specialty | Diagnoses / | Referred By | Referred To | | | | | Procedures | Contact | Contact | +--------+--------+ + + + + | Closed | | Cardiac | Diagnoses | [place], | [facility] | | | | Rehabilitatio | copd | MD Jared | | | | | n | Procedures | [address] | Rehabilitatio | | | | | [facility] | [address] | [address] | | | | | EXERCISE | [place], | [place] | | | | | | [place] [address] | [place], [place] | | | | | | Phone: | [address] | | | | | | [phone] | Phone: | | | | | | Fax: | [phone] | | | | | | [phone] | Fax: | | | | | | | [phone] | +--------+--------+ + + + + Encounter Details +--------+---------+ + + + | Date | Type | Department | Care Team | Description | +--------+---------+ + + + | 07/23/ | Office | [facility] | Jared Mcdonough, | Chronic obstructive | | 2017 | Visit | [facility] | MD [address] | pulmonary disease, | | | | REHABILITATION [address] | [address] [place], | unspecified COPD | | | | [address] [place] | [place] [address] | type (HCC) (Primary | | | | [place] [address] | [phone] | Dx); Mild persistent | | | | [phone] | | asthma without | | | | | | complication; | | | | | | Pulmonary emphysema, | | | | | | [...] this encounter Progress Notes Desean Chris - 07/23/2016 10:15 AM PDTPatient tolerated exercise session without any compl aints. Continue support and progression. Appointment duration: 60 mins P DTdocumented in this encounter Plan of Treatment +--------+---------+ + + + | Date | Type | Specialty | Care Team | Description | +--------+---------+ + + + | 03/01/ | Office | Pulmonology | Mukul Clark MD | | | 2019 | Visit | | [address] | | | | | | [place] | | | | | | [address] | | | | | | | | +--------+---------+ + + + | 11/24/ | Office | Cardiology | [place], | | | 2019 | Visit | | SINDHU Erickson [address] | | | | | | [place], | | | | | | [place] [address] | | | | | | [phone] | | | | | | | | +--------+---------+ + + + documented as of this encounter Visit Diagnoses + + | Diagnosis | + + | Chronic obstructive pulmonary disease, unspecified COPD type (HCC) - Primary | + + | Mild persistent asthma without complication Unspecified asthma | + + | Pulmonary emphysema, unspecified emphysema type (HCC) | + + documented in this encounter"
--- OUTSIDE RECORDS SUMMARY | ~2019-01-15 | XMS | Encounter Summary ---
Demographics + + + | Address | [address] | | | [place] [address] | + + + | Home Phone [...] Providers + +------+ + | Care Animal Keeper Head Name | Role | Phone | + [...] | Concussion | Aaron Kim MD | Plating Stripper [address] | | | Required | | with brief | [address] | [place] | | | | | loss of | [address] | [place], [place] | | | | | consciousnes | [place], | [address] | | | | | s Word | [place] [address] | Phone: | | | | | finding | Phone: | [phone] | | | | | difficulty | [phone] | Fax: | | | | | [id number] | Fax: | [phone] | | | | | (ICD-10-CM) | [phone] | | | | | | - [...] + + | 09/17/ | Hospital | [facility] | Aaron Rodriguez, | Word finding | | 2017 | Encounter | MED CTR SPEECH | MD [address] [facility] | difficulty (Primary | | | | THERAPY [address] | [place] | Dx); Impaired | | | | [place], | [address] | memory; Concussion | | | | [place] [address] | | with brief (less | | | | [phone] | Kathi Soto, | than one hour) [...] | | | | send order to [facility] | | | | | | | [facility]. | | | | | | | [...] | | | | | ([facility]) | | | | | | + + + +---------+ + + | | Take 1 capsule by | | 0 | 10/13/19 | | | [id number]-YYUU-Hoxq | mouth as needed. | | | 16 | 7 | | -Cod [id number] MG | | | | | | [...] | | | | | ([facility]) | | | | | | [...] Speech Pathologist - 09/19/2016 2:57 PM PDT [facility] SPEECH THERAPY [address] [place] [address] Speech Therapy Discharge Note Date: 09/17/2016 Patient Information Patient Name: Rosario Malik Date of : 1965 Age: 51 y.o. History Encounter Diagnoses Code Name Primary? R47.89 Word finding difficulty Yes R41.3 Impaired memory S06.0X9A Concussion with brief (less than one hour) loss of consciousness Date of Onset: 03/15/2016 Referring Provider: Aaron Rodriguez MD Rehab Precautions Flowsheet Row Office Visit from 05/01/[address] [facility] THERAPY PT OP Rehab Precautions Precautions None Rehab Learning Style Flowsheet Row [facility] CLOTH SHEARING SUPERVISOR OP EVAL from 05/16/[address] [facility] SPEECH THERAPY O ffice Visit from 05/01/[address] [facility] THERAPY PT OP Learning Style [...] re: these concerns. did provide resources to [facility]. At this time Rosario stat es [...] Patient Caregiver's Ability to Manage Condition: 4 CLOTH SHEARING SUPERVISOR G-Codes Functional Assessment Tool Used: NOMS Score: [...] From: 08/16/2016 Certification To: 09/19/16 Treatment Plan/Interventions 18947 - Cognitive [id number] - Cognitive [id number] - Speech/Hearing Treatment Patient and/or family has [...] Discharge to [facility]. Electronically signed by: Kathi Soot Speech Pathologist, 09/19/2016 15:49 Patient Name: Rosario Mailk/: 1965/ docum ented in this encounter Plan of Treatment +--------+---------+ + + + | Date | Type | Specialty | Care Team | Description | +--------+---------+ + + + | 03/01/ | Office | Pulmonology | Mukul Clark MD | | | 2019 | Visit | | [address] | | | | | | [facility] [place] | | | | | | [address] | | | | | | | | +--------+---------+ + + + | 11/24/ | Office | Cardiology | [place], | | | 2019 | Visit | | SINDHU Erickson [address] | | | | | | [place], | | | | | | [place] [address] | | | | | | [phone] | | | | | | | [...]
--- OUTSIDE RECORDS SUMMARY | ~2019-01-15 | XMS | Encounter Summary ---
Demographics + + + | Address | [address] | | | [place] [address] | + + + | Home Phone [...] Team Providers + +------+ + | Care Conversion Man Name | Role | Phone | + +------+ + | Juan Cherry DO | PCP | | + +------+ + Reason for Visit +--------+ + | Reason | Comments | +--------+ + | Apnea | | +--------+ + Encounter Details +--------+---------+ + + + | Date | Type | Department | Care Team | Description | +--------+---------+ + + + | 03/06/ | Office | [facility] | Maxim Delgado PA | GARRY on CPAP (Primary | | 2012 | Visit | SLEEP DISORDER [address] | [address] | Dx); Organic | | | | [address] [place] | [place] | insomnia, | | | | [place] [address] | [address] | unspecified | | | | [phone] | | | +--------+---------+ + + + [...] +---------+ + | Yes | | | Rare. ~1 drink | [...] + + + | Blood Pressure | 98/62 | 03/06/2012 10:18 AM | | | | | PST | | + + + + + | Pulse | 60 | 03/06/2012 10:18 AM | | | | | PST | | + + + + + | Temperature | - | - | | + + + + + | Respiratory Rate | 16 | 03/06/2012 10:18 AM | | | | | PST | | + + + + + | Oxygen Saturation | - | - | | + + + + + | Inhaled Oxygen | - | - | | | Concentration | | | | + + + + + | Weight | 59.1 kg (130 lb 4.8 | 03/06/2012 10:18 AM | | | | oz) | PST | | + + + + + | Height | - | - | | + + + + + | Body Mass Index | 23.83 | 03/02/2012 10:23 AM | | | | | PST | | + + + + + documented in this encounter Progress Notes Maxim Delgado PA - 03/06/2012 10:30 AM PST Subjective: Patient ID: Rosario Malik is a 47 y.o. female. HPI last office visit was: 08/22/2011 date of polysomnography: 10/15/2011 AHI: 47.1 RDI: 53.4 Machine type: [employer] with full face mask obtained from: [facility] pressure is: 8-12 cm 95%: 11.9 cm maxium: 11.9 cm CPAP download shows CPAP useage # nights: 88/100 average usage (all nights): 2:52 average usage (nights used): 3:16 Rosario comes in for CPAP compliance. She does pretty well with it, but she is having a d ifficult time sleeping for the duration of the night. She goes to bed at 11:30 and falls asleep within ten minutes. She is waking at 2 am. She gets up to use the bathroom and is not able to go back to sleep. She then sits in a dark ro om for an hour waiting to get sleepy. She then starts doing productive things because it do esn't make sense to her, to sit there doing nothing. I explained to her the importance of e stablishing a routine of only sleeping during the night and not allowing herself to do produ ctive things during that time. She would like to wake at 5 am. She would like to be able to sleep for 7-8 hours per night , but is now only getting 3-4 hours of sleep each day. I have discussed the download in detail. This shows that her sleep apnea is not controlled , with an AHI of 16.1. This is likely a result of her severe leaks. She says that she gets a good mask fit when she starts the night, but as soon as she moves, her mask begins to torito k severely. She is not able to make any adjustment to control the leaks. Review of Systems Objective: Physical Exam Assessment: Problem #1: OBSTRUCTIVE SLEEP APNEA (327.23) Her CPAP compliance is going pretty well, but she has severe leaks. 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 Plan: 1. She is to continue with CPAP indefinitely. She has worked with a pyrotechnician to correct her leaks. He has given her a different mask to try during the next week. 2. She is to limit her sleeping time to 1-5 am, with no naps during the day. She is to on ly sleep during that time. If she wakes and is not able to get back to sleep, she is to go to a dark, quiet room and sit, doing nothing until she gets sleepy. She is then to go back to bed and attempt to go to sleep with her CPAP. I will follow up again in 1 week, sooner prn. Thirty minutes were spent [id number], with the majority of time spent in counseling. Maxim Delgado PA-C cc: Juan Cherry DO Ced Hailee M - 2012 10:16 AM PST 03/06/12 [address] Depression Inventory-II Depression Score 43 Insomnia Severity Index Insomnia Severity Index 22 Grant Sleepiness Scale Sitting and reading 3 Watching TV 3 Sitting, inactive in a public place (e.g. a theatre or a meeting) 3 As a passenger in a car for an hour without a break 3 Lying down to rest in the afternoon when circumstances permit 3 Sitting and talking to someone 2 Sitting quietly after a lunch without alcohol 2 In a car, while stopped for a few minutes in traffic 1 Total score 20 SF-36v2 Score PF 46.51 RP 56.85 BP 45.64 GH 30.53 VT 36.48 SF 40.49 RE 55.88 MH 35.93 PCS 46.34 MCS 40.67 documented in this enc ounter Plan of [...] [place] | | | | | | [address] | | | | | | | | +--------+---------+ + + + | 11/24/ | Office | Cardiology | [place], | | | 2020 | Visit | | SINDHU Erickson [address] | | | | | | [place], | | | | | | [place] [address] | | | | | | [phone] | | | | | | | | +--------+---------+ + + + documented as of this encounter Visit Diagnoses + + | Diagnosis | + + | GARRY on CPAP - Primary Obstructive sleep apnea (adult) (pediatric) | + + | Organic insomnia, unspecified | + + documented in this encounter"
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
--- OUTSIDE RECORDS SUMMARY | ~2019-01-15 | XMS | Encounter Summary ---
Demographics + + + | Address | [address] | | | [place] [address] | + + + | Home Phone [...] + + + | Author | [facility] | | | and [place] | + + + | Organization | [facility] | | | and [...] Team Providers + +------+ + | Care An/Ssn 2 4 Operator Name | Role | Phone | [...] | | localized | | [address] | | | | | osteoarthros | | [place] | | | | | is of hand, | | [place], [place] | | | | | unspecified | | [address] | | | | | laterality | | Phone: | | | | | Primary | | [phone] | | | | | localized | | Fax: | | | | | osteoarthros | | [phone] | | | | | is of hand, | | | | | | | unspecified | | | | | | | laterality | | | | | | | [[id number] | | | | | | | Procedures | | | | | | | SD REPAIR | | | | | | [...] | +--------+ + + + + | 06/18/ | Anesthesia | TANISHA SANCHEZ | Ra Cardona | | | 2019 | Event | [facility] | MD Cameron [address] | | | | | [address] | [address] [place] | | | | | [place], [place] | [place] [address] | | | | | [address] | [phone] | | | | | [phone] | | | +--------+ + + + + Anesthesia Record + + + + + | Procedure Name | Responsible | Anesthesia Start | Anesthesia Stop Time | | | Anesthesiologist | Time | | + + + + + | Right Basal Joint | Ra Barnes | 06/18/18 1442 | 06/18/18 1556 | | Arthroplasty, tendon | MD Dulce | | | | interposition | | | | | (Right Hand) | | | | + + + + + +----+---+ + + | Da | T | Event | Comment | | te | i | | | | | m | | | | | e | | | +----+---+ + + | 04 | 1 | | | | /2 | 4 | | | | 5/ | 2 | | | | 20 | 7 | | | | 19 | | | | +----+---+ + + | | 1 | An Start | | | | 4 | Data | | | | 2 | | | | | 7 | | | +----+---+ + + | | 1 | an everardo now | | | | 4 | | | | | 3 | | | | | 5 | | | +----+---+ + + | | 1 | Block Start | | | | 4 | | | | | 3 | | | | | 8 | | | +----+---+ + + | | 1 | AN Block | | | | 4 | End | | | | 4 | | | | | 1 | | | +----+---+ + + | | 1 | an stop | | | | 4 | data | | | | 4 | | | | | 1 | | | +----+---+ + + | | 1 | An Checkout | Pre-use anesthesia machine/equipment checkout. | | | 4 | | | | | 4 | | | | | 2 | | | +----+---+ + + | | 1 | An Start | Reassessment prior to anesthesia induction/procedure. | | | 4 | | | | | 4 | | | | | 2 | | | +----+---+ + + | | 1 | Preoxygenat | | | | 4 | ed | | | | 4 | | | | | 8 | | | +----+---+ + + | | 1 | An | | | | 4 | Induction | | | | 5 | | | | | 1 | | | +----+---+ + + | | 1 | An | | | | 4 | Intubation | | | | 5 | | | | | 2 | | | +----+---+ + + | | 1 | Antibiotic | | | | 4 | Given | | | | 5 | | | | | 3 | | | +----+---+ + + | | 1 | [place] | | | | 4 | 43-degrees | | | | 5 | | | | | 7 | | | +----+---+ + + | | 1 | Pre-Procedu | | | | 4 | ral Timeout | | | | 5 | Completed | | | | 7 | | | +----+---+ + + | | 1 | First | | | | 4 | Inc/Proc St | | | | 5 | | | | | 9 | | | +----+---+ + + | | 1 | An Tourn | | | | 5 | Inflated | | | | 0 | | | | | 1 | | | +----+---+ + + | | 1 | Breathing | | | | 5 | Spontaneous | | | | 4 | ly | | | | 1 | | | +----+---+ + + | | 1 | An Tourn | | | | 5 | Deflated | | | | 4 | | | | | 1 | | | +----+---+ + + | | 1 | an stop | | | | 5 | data | | | | 4 | | | | | 7 | | | +----+---+ + + | | 1 | Extubation/ | | | | 5 | Airway LDA | | | | 4 | Removal | | | | 9 | | | +----+---+ + + | | 1 | An Stop | Patient handed off to recovery nurse. | | | 5 | | | | | 6 | | | +----+---+ + + +------+ | Meds | +------+ + + + | Name | Total | + + + | midazolam | 2 mg | + + + | fentaNYL | 50 mcg | + + + | ropivacaine 0.5% | 25 mL | + + + | lidocaine 2% | 5 mL | + + + | propofol | 200 mg | + + + | propofol | 152.1 mg | + + + | lidocaine 1% | 50 mg | + + + | ondansetron | 4 mg | + + + | Phenylephrine 100mcg/mL SYRINGE | 200 mcg | + + + | hydrocortisone | 100 mg | + + + | ceFAZolin (ANCEF, KEFZOL) 100 | 2 g | | mg/mL IV syringe 2 g | | + + + | lactated ringers (LR) infusion | 900 mL | + + + + + | Name | + + | N2O Flow Rate (L/Min) | + + | O2 Flow Rate (L/Min) | + + | Insp O2 | + + | Exp SEV | + + | Exp KAITLIN | + + | Air Flow Rate (L/Min) | + + + + | No blood administrations on file. | + + +--------+ + + + | Type | Details | Placement | Removal | +--------+ + + + | Periph | 06/18/18; 1326; Left; Medial; | 06/18/18 1326 by | 06/18/18 1701 by | | eral | Forearm; abng-qli-fntvaw catheter | Teresa Yuan, | Daniela Caro RN | | IV | system; 20 gauge, 02/27 in | RN | | | | length; Chemistry; intradermal | | | | | injection; no longer indicated; | | | | | 06/18/18; 1701 | | | +--------+ + + + | Airway | Placement Date: 06/18/18; | 06/18/181451 by | 06/18/18 1549 by | | | Placement Time: 1451 (created via | Ra Barnes | Ra Barnes | | | procedure documentation); Mask | MD Dulce | MD Dulce | | | Ventilation: EZ; Attempts: 1; | | | | | Airway Type: laryngeal mask; | | | | | Size: 3; Trauma: none; Placement | | | | | Check: exhaled CO2 detection | | | | | device, bilateral chest rise, | | | | | breath sounds equal bilaterally; | | | | | Removal Date: 06/18/18; Removal | | | | | Time: 1549; Additional Comments: | | | | | Patient with extremely poor | | | | | dentition including missing | | | | | teeth, chipped, teeth and loose | | | | | teeth. Teeth examined before and | | | | | after LMA placement - no change. | | | | | Atraumatic LMA placement with | | | | | quality seat and seal. | | | +--------+ + + + | Wound | 06/18/18; 1509; Incision; Right; | 06/18/18 1509 by | 06/18/18 1706 by | | | hand; Healing; 06/18/18; 1706 | Breanna Swanson RN | Daniela Caro RN | +--------+ + + + documented in [...] | | | | [facility] [place] | | | | | | [address] | | | | | | | | +--------+---------+ + + + | 11/24/ | Office | Cardiology | [place], | | | 2019 | Visit | | SINDHU Erickson [address] | | | | | | [place], | | | | | | [place] [address] | | | | | | [phone] | | | | | | | | +--------+---------+ + + + documented as of this encounter Procedures + +--------+ + + + | Procedure Name | Priori | Date/Time | Associated Diagnosis | Comments | | | ty | | | | + +--------+ + + + | ANE NERVE BLOCK | Routin | 06/18/2018 | | Results for this | | CATHETER NOTE | e | 3:14 PM | | procedure are in the | | | | PDT | | results section. | + +--------+ + + + | ANE AIRWAY NOTE | Routin | 06/18/2018 | | Results for this | | | e | 3:11 PM | | procedure are in the | | | | PDT | | results section. | + +--------+ + + + documented in this encounter Results Nerve Block (06/18/2018 3:14 PM PDT) + + + | Narrative | Performed At | + + + | Ra Cardona MD 06/18/2018 15:15 Perineural Procedure | | | Note Nerve block: axillary-brachial plexus Laterality: right | | | Continuous block with catheter: No Provider requested procedure: | | | Jesus Brady DO Indication: postoperative analgesia | | | Preprocedure check: patient identified, procedure and rescue equipment | | | checked, preevaluation including airway assessment complete, | | | risks/benefits discussed, consent obtained, timeout performed, | | | reassessment prior to procedure and monitors applied Patient | | | position: supine (Arm elevated over head to open axilla) Preparation: | | | chlorhexidine/isopropyl alcohol, 1% lidocaine infiltration Local | | | anesthetic infiltration volume in ml: 3 mL Technique: ultrasound | | | Radiology image stored in patient's chart: ultrasound Needle: | | | stimulating Needle size: 22 g Needle length: 4 in Medication | | | administered through: needle and incremental injection Negative | | | findings: no blood aspirated and no paresthesia Test response dose: | | | negative Total volume of local anesthetic solution administered: 30 | | | mL Attempts: 1 Ease of procedure: easy Comments: Peripheral | | | nerve block offered at the request of the attending surgeon. | | | Patient ID and surgical laterality confirmed. Pre-procedure pause | | | completed. Patient placed on monitors. Patient positioned supine and | | | area of skin surrounding site of needle entry was cleaned with | | | chloroprep solution and allowed to dry. (1) Under ultrasound | | | guidance, a 22 gauge needle was inserted and placed in close | | | proximity to the brachial plexus in the axillary region. (2) | | | Ultrasound was also used to visualize the spread of the anesthetic in | | | close proximity to the nerves being blocked. (3) The nerve appeared | | | anatomically normal, and (4) there were no apparent abnormal | | | pathological findings. (5) A permanent ultrasound image was saved in | | | the patient's record. Patient tolerated procedure well, | | | conversant throughout with sedation. Please see anesthesia record | | | or flowsheet for vital sign documentation and see anesthesia record | | | or MAR for all medication documentation. Please see | | | anesthesia record or flowsheet for vital sign documentation and see | | | anesthesia record or MAR for additional medication documentation. | | | Performing provider: Ra Cardona MD | | + + + + + | Procedure Note | + + | Ra Cardona MD - 06/18/2018 3:14 PM PDT Perineural Procedure NoteNerve | | block: axillary-brachial plexusLaterality: rightContinuous block with catheter: | | NoProvider requested procedure: Jesus Brady, DOIndication: postoperative | | analgesiaPreprocedure check: patient identified, procedure and rescue equipment checked, | | preevaluation including airway assessment complete, risks/benefits discussed, consent | | obtained, timeout performed, reassessment prior to procedure and monitors appliedPatient | | position: supine (Arm elevated over head to open axilla)Preparation: | | chlorhexidine/isopropyl alcohol, 1% lidocaine infiltrationLocal anesthetic infiltration | | volume in ml: 3 mLTechnique: ultrasoundRadiology image stored in patient's chart: | | ultrasoundNeedle: stimulatingNeedle size: 22 gNeedle length: 4 inMedication administered | | through: needle and incremental injectionNegative findings: no blood aspirated and no | | paresthesiaTest response dose: negativeTotal volume of local anesthetic solution | | administered: 30 mLAttempts: 1Ease of procedure: easyComments: Peripheral nerve block | | offered at the request of the attending surgeon.Patient ID and surgical laterality | | confirmed. Pre-procedure pause completed. Patient placed on monitors. Patient positioned | | supine and area of skin surrounding site of needle entry was cleaned with chloroprep | | solution and allowed to dry. (1) Under ultrasound guidance, a 22 gauge needle was | | inserted and placed in close proximity to the brachial plexus in the axillary region. | | (2) Ultrasound was also used to visualize the spread of the anesthetic in close | | proximity to the nerves being blocked. (3) The nerve appeared anatomically normal, and | | (4) there were no apparent abnormal pathological findings. (5) A permanent ultrasound | | image was saved in the patient's record. Patient tolerated procedure well, conversant | | throughout with sedation. Please see anesthesia record or flowsheet for vital sign | | documentation and see anesthesia record or MAR for all medication documentation.Please | | see anesthesia record or flowsheet for vital sign documentation and see anesthesia | | record or MAR for additional medication documentation.Performing provider: Ra | | Cameron Cardona MD | |(1) Under ultrasound guidance, a 22 gauge needle was inserted and placed in close proximity to the brachial plexus in the axillary region. (2) Ultrasound was also used to visualize t he spread of the anesthetic in | |close proximity to the nerves being blocked. (3) The nerve appeared anatomically normal, an d (4) there were no apparent abnormal pathological findings. (5) A permanent ultrasound imag e was saved in the patient's record. | | | |Patient tolerated procedure well, conversant throughout with sedation. | | | |Please see anesthesia record or flowsheet for vital sign documentation and see anesthesia r ecord or MAR for all medication documentation. | | | | | | | | | | | |Please see anesthesia record or flowsheet for vital sign documentation and see anesthesia r ecord or MAR for additional medication documentation. | | | | | |Performing provider: Ra Cardona MD | + + Airway (06/18/2018 3:11 PM PDT) + + + | Narrative | Performed At | + + + | Ra Cardona MD 06/18/2018 15:13 Anesthesia Airway | | | Placement 06/18/2018 14:52 Preprocedure check: patient identified, | | | oxygen, airway assessed, suction, airway equipment checked and | | | patient reassessment prior to induction Mask ventilation: easy | | | Attempts: 1 Airway type: laryngeal mask Size: 3 Cuffed: cuffed | | | Route, reference point: center of mouth Tube secured with: adhesive | | | tape Trauma: none Tube placement verification: bilateral chest rise, | | | equal bilateral breath sounds and carbon dioxide detection | | | Performing provider: Ra Cardona MD Comments: Patient | | | with extremely poor dentition including missing teeth, chipped, | | | teeth and loose teeth. Teeth examined before and after LMA placement | | | - no change. Atraumatic LMA placement with quality seat and seal. | | | Please see intraoperative grid for any additional medication | | | documentation. | | + + + + + | Procedure Note | + + | Ra Cardona MD - 06/18/2018 3:11 PM PDT Anesthesia Airway | | Placement06/18/2018 14:52Preprocedure check: patient identified, oxygen, airway assessed, | | suction, airway equipment checked and patient reassessment prior to inductionMask | | ventilation: easyAttempts: 1Airway type: laryngeal maskSize: 3Cuffed: cuffedRoute, | | reference point: center of mouthTube secured with: adhesive tapeTrauma: noneTube | | placement verification: bilateral chest rise, equal bilateral breath sounds and carbon | | dioxide detectionPerforming provider: Ra Cardona MDComments: Patient with | | extremely poor dentition including missing teeth, chipped, teeth and loose teeth.Teeth | | examined before and after LMA placement - no change.Atraumatic LMA placement with | | quality seat and seal.Please see intraoperative grid for any additional medication | | documentation. | |Trauma: none | |Tube placement verification: bilateral chest rise, equal bilateral breath sounds and carbon dioxide detection | |Performing provider: Ra Cardona MD | | | |Comments: Patient with extremely poor dentition including missing teeth, chipped, teeth and loose teeth. | |Teeth examined before and after LMA placement - no change. | | | |Atraumatic LMA placement with quality seat and seal. | | | | | | | |Please see intraoperative grid for any additional medication documentation. | + + documented in this encounter Visit Diagnoses Not on filedocumented in this encounter Administered Medications + +--------+ +------+------+------+ | Medication Order | MAR | Action | Dose | Rate | Site | | | Action | Date | | | | + +--------+ +------+------+------+ | ceFAZolin (ANCEF, KEFZOL) 100 | Given | 06/19/19 | 2 g | | | | mg/mL IV syringe 2 g 2 g, | | 19 2:53 | | | | | Intravenous, Administer over 30 | | PM PDT | | | | | Minutes, Prior to Incision, | | | | | | | Starting [facility] 06/18/18 at 1448, For | | | | | | | 1 dose, Pre-op, Indications: | | | | | | | Surgical Prophylaxis | | | | | | + +--------+ +------+------+------+ +---+---+ | | | +---+---+ + +-------+ +--------+---+---+ | fentaNYL (PF) injection | Given | 06/19/19 | 50 mcg | | | | Intravenous, PRN, Starting Carey | | 19 2:37 | | | | | 06/18/18 at 1437, Anesthesia | | PM PDT | | | | | Intra-op | | | | | | + +-------+ +--------+---+---+ +---+---+ | | | +---+---+ + +-------+ +--------+---+---+ | hydrocortisone (PF) | Given | 06/19/19 | 100 mg | | | | (solu-CORTEF) injection | | 19 3:06 | | | | | Intravenous, PRN, Starting Carey | | PM PDT | | | | | 06/18/18 at 1506, Anesthesia | | | | | | | Intra-op | | | | | | + +-------+ +--------+---+---+ +---+---+ | | | +---+---+ + +-------+ +-------+---+---+ | lidocaine (PF) 1% injection | Given | 06/19/19 | 50 mg | | | | Intravenous, PRN, Starting Carey | | 19 2:51 | | | | | 06/18/18 at 1451, Anesthesia | | PM PDT | | | | | Intra-op | | | | | | + +-------+ +-------+---+---+ +---+---+ | | | +---+---+ + +-------+ +-------+---+---+ | lidocaine (PF) 2% injection | Given | 06/19/19 | 5 mLs | | | | PERINEURAL, PRN, Starting Carey | | 19 2:40 | | | | | 06/18/18 at 1440, Anesthesia | | PM PDT | | | | | Intra-op | | | | | | + +-------+ +-------+---+---+ +---+---+ | | | +---+---+ + +-------+ +------+---+---+ | midazolam (VERSED) 1 mg/mL | Given | 06/19/19 | 2 mg | | | | injection Intravenous, PRN, | | 19 2:37 | | | | | Starting Carey 06/18/18 at 1437, | | PM PDT | | | | | Anesthesia Intra-op | | | | | | + +-------+ +------+---+---+ +---+---+ | | | +---+---+ + +-------+ +------+---+---+ | ondansetron (ZOFRAN) injection | Given | 06/19/19 | 4 mg | | | | Intravenous, PRN, Starting Carey | | 19 3:06 | | | | | 06/18/18 at 1506, Anesthesia | | PM PDT | | | | | Intra-op | | | | | | + +-------+ +------+---+---+ +---+---+ | | | +---+---+ + +-------+ +---------+---+---+ | phenylephrine (CUCA-SYNEPHRINE) | Given | 06/19/19 | 100 mcg | | | | 100 mcg/mL injection | | 19 3:29 | | | | | Intravenous, PRN, Starting Carey | | PM PDT | | | | | 06/18/18 at 1516, Anesthesia | | | | | | | Intra-op | | | | | | + +-------+ +---------+---+---+ +-------+ +---------+---+---+ | Given | 06/19/19 | 100 mcg | | | | | 19 3:16 | | | | | | PM PDT | | | | +-------+ +---------+---+---+ +---+---+ | | | +---+---+ + +-------+ +--------+---+---+ | propofol (DIPRIVAN) injection | Given | 06/19/19 | 200 mg | | | | Intravenous, PRN, Starting Carey | | 19 2:51 | | | | | 06/18/18 at 1451, Anesthesia | | PM PDT | | | | | Intra-op | | | | | | + +-------+ +--------+---+---+ +---+---+ | | | +---+---+ + +---------+ + +-------+---+ | propofol (DIPRIVAN) injection | New Bag | 06/19/19 | 50 | 20.3 | | | Intravenous, CONTINUOUS PRN, | | 19 2:55 | mcg/kg/m | mL/hr | | | Starting [facility] 06/18/18 at 1455, | | PM PDT | in | | | | Anesthesia Intra-op | | | | | | + +---------+ + +-------+---+ +---+---+ | | | +---+---+ + +-------+ +--------+---+---+ | ropivacaine (NAROPIN) 5 mg/mL | Given | 06/19/19 | 25 mLs | | | | (0.5%) injection PERINEURAL, | | 19 2:40 | | | | | PRN, Starting Carey 06/18/18 at | | PM PDT | | | | | 1440, Anesthesia Intra-op | | | | | | + +-------+ +--------+---+---+ +---+---+ | | | +---+---+ documented in this encounter"
--- OUTSIDE RECORDS SUMMARY | ~2019-01-15 | XMS | Encounter Summary ---
Demographics + + + | Address | [address] | | | [place] [address] | + + + | Home Phone | | + + + | Preferred Language | Unknown | + + + | Marital Status | Single | + + + | Islam Affiliation | [id number] | + + + [...] Team Providers + +------+ + | Care Breast Trimmer Name | Role | Phone | + [...] Provider Unknown | | | | | [place], [place] | [phone] | | | | | [address] | | | | | | [phone] | | | +--------+ + + + [...] | | | | | order to [facility]. | | | | | + [...] | | | | send order to [facility] | | | | | [...] | | | | | | | ([facility]) | | | | | | + [...] | | | | [address] [facility] | | | | | | [address] | | | | | | | | +--------+---------+ + + + | 11/24/ | Office | Cardiology | [place], | | | 2019 | Visit | | SINDHU Erickson [address] | | | | | | [place], | | | | | | [place] [address] | | | | | | [phone] | | | | | | | | +--------+---------+ + + + documented as of this encounter Procedures + +--------+ + + + | Procedure Name | Priori | Date/Time | Associated Diagnosis | Comments | | | ty | | | | + +--------+ + + + | CT CHEST WO CONTRAST | Routin | 11/16/2013 | | Results for this | | | e | 1:11 AM | | procedure are in the | | | | PDT | | results section. | + +--------+ + + + documented in this encounter Results CT Chest wo Contrast (11/16/2013 1:11 AM PDT) + + | Specimen | + + | | + + + + + | Narrative | Performed At | + + + | This is a non-reportable procedure without a radiologist report and | | | is used for image storage only | | + + + + + | Procedure Note | + + | Roger Mcbride Maureen - 10/09/2018 12:59 AM PDT This is a non-reportable procedure | | without a radiologist report and isused for image storage only | + + documented in this encounter Visit Diagnoses + + | Diagnosis | + + | Pain Generalized pain | + + documented in this encounter"
--- OUTSIDE RECORDS SUMMARY | ~2019-01-15 | XMS | Encounter Summary ---
Demographics + + + | Address | [address] | | | [place] [address] | + + + | Home Phone [...] Team Providers + +------+ + | Care Termite Control Technician Name | Role | Phone | [...] | with brief | [address] | | | | n | loss of | [address] | [place], | | | | | consciousnes | [place], | [place] [address] | | | | | s | [place] [address] | Phone: | | | | | Post-concuss | Phone: | [phone] | | | | | ion vertigo | [phone] | Fax: | | | | | [phone] | Fax: | [phone] | | | | | (ICD-10-CM) | [phone] | | | | | | - [...] + + | 05/07/ | Office | [facility] | Aaron Rodriguez, | Dizziness (Primary | | 2017 | Visit | MED CTR THERAPY PT | MD [address] | Dx); Impaired | | | | OP [address] | [place] | mobility and | | | | [place] | [phone] | activities of daily | | | | [address] | | living; Concussion | | | | [phone] | Lakeshia Cleary, PT | with brief (less | | | | | [address] | than one hour) loss | | | | | [place] | of consciousness; | | | | | [address] | Intractable acute | | | | [...] might be different from t he original. [facility] CTR THERAPY PT OP [address] [place] [address] Physical Therapy Daily Treatment Note Date: 05/07/2016 [...] Rehab Precautions Office Visit from 05/01/[address] [facility] CTR THERAPY PT OP Rehab Precautions [...] [place] | | | | | | [address] | | | | | | | | +--------+---------+ + + + | 11/24/ | Office | Cardiology | [place], | | | 2020 | Visit | | SINDHU Erickson [address] | | | | | | [place], | | | | | | [place] [address] | | | | | | [phone] | | | | | | | [...]
--- OUTSIDE RECORDS SUMMARY | ~2019-01-15 | XMS | Encounter Summary ---
Demographics + + + | Address | [address] | | | [place] [address] | + + + | Home Phone [...] Team Providers + +------+ + | Care Wall Covering Installer Name | Role | Phone | + +------+ + | Juan Cherry DO | PCP | | + +------+ + Encounter Details +--------+ + + + + | Date | Type | Department | Care Team | Description | +--------+ + + + + | 12/09/ | Orders Only | [facility] | Shashi Segovia | Therapeutic drug | | 2013 | | NEUROLOGY ADRIANA Witt MD Need updated | monitoring (Primary | | | | [address] [facility], | address | Dx) | | | | [address] [place] | | | | | | [place] [address] | | | | | | [phone] | | | +--------+ + + + [...] [place] | | | | | | [address] | | | | | | | | +--------+---------+ + + + | 11/24/ | Office | Cardiology | [place], | | | 2019 | Visit | | SINDHU Erickson [address] | | | | | | [place], | | | | | | [place] [address] | | | | | | [phone] | | | | | | | | +--------+---------+ + + + documented as of this encounter Results Creatinine (12/17/2013 2:05 PM [...] | | | | | mL/min/1.73m2 | [facility] | | | [facility] | | | [facility] | | | [...] + | [facility] | [address] | [place] | [phone] | | [facility] | | [address] | | | - LABORATORY | | | | + + + + + | [facility] | [address] | [place] | | | [facility] | | [address] | | | - LABORATORY | | [...] + | [facility] | [address] | [place], [place] | [phone] | | [facility] | | [address] | | | - LABORATORY | | | | + + + + + | [facility] | [address] | [place], [place] | | | [facility] | | [address] | | | - LABORATORY | | | | + + + + + documented in this encounter Visit Diagnoses + + | Diagnosis | + + | Therapeutic drug monitoring - Primary Encounter for therapeutic drug monitoring | + + documented in this encounter"
--- OUTSIDE RECORDS SUMMARY | ~2019-01-15 | XMS | Encounter Summary ---
Demographics + + + | Address | [address] | | | [place] [address] | + + + | Home Phone [...] Team Providers + +------+ + | Care Meat Clerk Name | Role | Phone | [...] [address] | | | | | [place], | [place], | | | | | [place] [address] | [place] [address] | | | | | [phone] | [phone] | | | | | | | [...] [place] | | | | | | [address] | | | | | | | | +--------+---------+ + + + | 11/24/ | Office | Cardiology | [place], | | | 2019 | Visit | | SINDHU Erickson [address] | | | | | | [place], | | | | | | [place] [address] | | | | | | [phone] | | | | | | | [...] ST. | [address] | [place] | [phone] | | [facility] | | [address] | | | - LABORATORY | | [...]
--- OUTSIDE RECORDS SUMMARY | ~2019-01-15 | XMS | Encounter Summary ---
Demographics + + + | Address | [address] | | | [place] [address] | + + + | Home Phone [...] + + + | Author | [facility] | | | and [place] | + + + | Organization | [facility] | | [...] Team Providers + +------+ + | Care Jet Inspector Name | Role | Phone | + +------+ + | Ozzy Delcid MD | PCP | | + +------+ + Reason for Visit + + + | Reason | Comments | + + + | Breathing Problem | | + + + Encounter Details +--------+ + + + + | Date | Type | Department | Care Team | Description | +--------+ + + + + | 12/03/ | Telephone | [facility] [place] | Jinny Freeman | Breathing Problem | | 2011 | | PULMONARY [address] | | | | | [place], | | | | | | [place] [address] | | | | | | [phone] | | | +--------+ + + + [...] [place] | | | | | | [id number] | | | | | | | | +--------+---------+ + + + | 11/24/ | Office | Cardiology | [place], | | | 2019 | Visit | | SINDHU Erickson [address] | | | | | | [place] | | | | | | [place] [address] | | | | | | [phone] | | | | | | | | +--------+---------+ + + + documented as of this encounter Visit Diagnoses Not on filedocumented in this encounter"
--- OUTSIDE RECORDS SUMMARY | ~2019-01-15 | XMS | Encounter Summary ---
Demographics + + + | Address | [address] | | | [place] [address] | + + + | Home Phone [...] Team Providers + +------+ + | Care Pesticide Use Medical Coordinator Name | Role | Phone | + +------+ + | Juan Cherry DO | PCP | | + +------+ + Reason for Visit + + + | Reason | Comments | + + + | Medication Prior | | | Authorization | | + + + Encounter Details +--------+ + + + + | Date | Type | Department | Care Team | Description | +--------+ + + + + | 09/05/ | Telephone | [facility] | Kevin Sandoval, | Medication Prior | | 2014 | | PULMONARY [address] | MD [address] | Authorization | | | | [place], | [place] | | | | | [place] [address] | [address] | | | | | [phone] | | | +--------+ + + + [...] | | | | | | [place] [address] | | | | | | [phone] | | | | | | | | +--------+---------+ + + + documented as of this encounter Visit Diagnoses Not on filedocumented in this encounter"
--- OUTSIDE RECORDS SUMMARY | ~2019-01-15 | XMS | Encounter Summary ---
Demographics + + + | Address | [address] | | | [place] [address] | + + + | Home Phone | | + + + | Preferred Language | Unknown | + + + | Marital Status | Single | + + + | Alevism Affiliation | 1041 | + + + [...] Team Providers + +------+ + | Care Ammunition Assembly Laborer Name | Role | Phone | + [...] | | | [place], [place] | [place] [address] | | | | | | [address] | Phone: | | | | | | Phone: | [phone] | | | | | | [phone] | Fax: | | | | | | Fax: | [phone] | | | | | | [phone] | | +--------+ + + + + [...] | cystitis (Primary | | | | [place], [place] | [address] [place] | Dx) | | | | [address] | [place] [address] | | | | | [phone] | [phone] | | | | | | | [...] [place] | | | | | | [address] | | | | | | | | +--------+---------+ + + + | 11/24/ | Office | Cardiology | [place], | | | 2020 | Visit | | SINDHU Erickson [address] | | | | | | [place], | | | | | | [place] [address] | | | | | | [phone] | | | | | | | [...]
--- OUTSIDE RECORDS SUMMARY | ~2019-01-15 | XMS | Encounter Summary ---
Demographics + + + | Address | [address] | | | [place] [address] | + + + | Home Phone [...] Providers + +------+ + | Care Radiology Receptionist Name | Role | Phone | + [...] | | | [place], [place] | [place] [address] | | | | | | [address] | Phone: | | | | | | Phone: | [phone] | | | | | | [phone] | Fax: | | | | | | Fax: | [phone] | | | | | | [phone] | | +--------+ + + + + [...] | cystitis (Primary | | | | [place], [place] | [address] [place] | Dx) | | | | [address] | [place] [address] | | | | | [phone] | | | | | | | [...] [place] | | | | | | [address] | | | | | | | | +--------+---------+ + + + | 11/24/ | Office | Cardiology | [place], | | | 2020 | Visit | | SINDHU Erickson [address] | | | | | | [place], | | | | | | [place] [address] | | | | | | [phone] | | | | | | | [...]
--- OUTSIDE RECORDS SUMMARY | ~2019-01-15 | XMS | Encounter Summary ---
Demographics + + + | Address | [address] | | | [place] [address] | + + + | Home Phone [...] Team Providers + +------+ + | Care Fusing Machine Tender Name | Role | Phone [...] + + | 10/22/ | Office | [facility] | Andriy Weber | Interstitial | | 2015 | Visit | [address] | [address] | cystitis (Primary | | | | [place] | [address] | Dx); Pyuria | | | | [address] | [place] [address] | | | | | [phone] | [phone] | | | | | | | [...] Action Dose Route Administered By 10/23/2015 Given 79899 Units Subcutaneous Marysol Nunes RN lidocaine 2% [...] [place] | | | | | | [address] | | | | | | | | +--------+---------+ + + + | 11/24/ | Office | Cardiology | [place], | | | 2019 | Visit | | SINDHU Erickson [address] | | | | | | [place], | | | | | | [place] [address] | | | | | | [phone] | | | | | | | [...] + | [facility] | [address] | [place] | [phone] | | [facility] | | [address] | | | - LABORATORY | | [...] [address] | [place] | [phone] | | [facility] | | [address] | | | - LABORATORY | | [...] 1.001 - 1.030 | | | | Onset, | | | | | | UA, [...]
--- OUTSIDE RECORDS SUMMARY | ~2019-01-15 | XMS | Encounter Summary ---
Demographics + + + | Address | [address] | | | [place] [address] | + + + | Home Phone [...] Team Providers + +------+ + | Care Carpet Sewing Machine Operator Name | Role | Phone [...] Description | +--------+--------+ + + + | 07/28/ | Refill | [facility] | Andriy Weber | Medication Refill | | 2018 | | [address] | [address] | | | | | [place] | THOM [facility] | | | | | [address] | [place] [address] | | | | | [phone] | | | | | | | [...] [place] | | | | | | [address] | | | | | | | | +--------+---------+ + + + | 11/24/ | Office | Cardiology | [place], | | | 2019 | Visit | | SINDHU Erickson [address] | | | | | | [place], | | | | | | [place] [address] | | | | | | [phone] | | | | | | | | +--------+---------+ + + + documented as of this encounter Visit Diagnoses Not on filedocumented in this encounter"
--- OUTSIDE RECORDS SUMMARY | ~2019-01-15 | XMS | Encounter Summary ---
Demographics + + + | Address | [address] | | | [place] [address] | + + + | Home Phone [...] Team Providers + +------+ + | Care Collision Worker Name | Role | Phone | [...] | | | | | [place] | [address] [facility] | | | | | [address] | [place] [address] | | | | | [phone] | [phone] | | | | | | | [...] [place] | | | | | | [address] | | | | | | | | +--------+---------+ + + + | 11/24/ | Office | Cardiology | [place], | | | 2019 | Visit | | SINDHU Erickson [address] | | | | | | [place], | | | | | | [place] [address] | | | | | | [phone] | | | | | | | | +--------+---------+ + + + documented as of this encounter Visit Diagnoses Not on filedocumented in this encounter"
--- OUTSIDE RECORDS SUMMARY | ~2019-01-15 | XMS | Encounter Summary ---
Demographics + + + | Address | [address] | | | [place] [address] | + + + | Home Phone | | + + + | Preferred Language | Unknown | + + + | Marital Status | Single | + + + | Latter-Day Affiliation | 1041 | + + + [...] Team Providers + +------+ + | Care Substance Addiction Coordinator Name | Role | Phone | [...] | | | | CENTER [address] | | carried out because | | | | [place] | | of patient's | | | | [address] | | decision (Primary | | | | [phone] | | Dx) | +--------+ + + [...] | | | | | order to [facility]. | | | | | + [...] | | send order to [facility] | | | | | | | [facility]. | | | | | | [...] | | | | | | [place] [address] | | | | | | [phone] | | | | | | | [...] TRACKING (3 MO.) Visit Date Location | [facility] | | Type Diagnoses | | | -------- | | | ---- 08/22/2013 18:46 [place] | | | [facility] Emergency COPD Exacerbation; | | | 08/13/2013 20:38 [facility] | | | Emergency Shortness of Breath; | | | | | | COPD Exasperation; | | | | | | Obstructive chronic bronchitis with (acute) exacerbation; 07/18/2013 | | | 12:06 [facility] Emergency Arm | | | Laceration; | | | Open wound of upper | | | arm, without mention of complication; | | | | | | cut on Lft arm; 07/14/2013 00:15 [facility] | | | [facility] Emergency Shortness of Breath; | | | | | | Chronic obstructive asthma with (acute) | | | exacerbation; 06/19/2013 21:06 [facility] | | | [facility] Obstructive chronic bronchitis with (acute) | | | exacerbation; | | | Shortness of | | | Breath; | | | diff breathing; | | | 06/19/2013 11:03 [facility] | | | Emergency COPD exasperation; 05/23/2013 19:52 [place] | | | [facility] Emergency Obstructive chronic | | | bronchitis with (acute) exacerbation; | | | | | | Obstructive chronic bronchitis with (acute) exacerbation; | | | | | | sob; | | | | | | Shortness of Breath; VISIT COUNT (1 YR.) Visits | | | [place] Dx Location ------ | | | --------- 13 0 [facility] | | | [facility] 13 0 Total | | | Note: Visits indicate total known visits. [place] Dx are the | | | number of primary diagnoses on the [facility]'s non-emergent dx list. | | | [...]
--- OUTSIDE RECORDS SUMMARY | ~2019-01-15 | XMS | Encounter Summary ---
Demographics + + + | Address | [address] | | | [place] [address] | + + + | Home Phone | | + + + | Preferred Language | Unknown | + + + | Marital Status | Single | + + + | Adventism Affiliation | 1041 | + + + | Race | Unknown | + + + | Ethnic Group | Unknown | + + + Author + + + | Author | [facility] | | | and [place] | + + + | Organization | [facility] | | | [...] Team Providers + +------+ + | Care Coremaker Experimental Name | Role | Phone | + +------+ + | Juan Cherry DO | PCP | | + +------+ + Reason for Visit +--------+ + | Reason | Comments | +--------+ + | Mass | RM # 1 - Left armpit swollen lump X 7 days | +--------+ + Encounter Details +--------+---------+ + + + | Date | Type | Department | Care Team | Description | +--------+---------+ + + + | 11/04/ | Office | [facility] | Daryl Hargrove | Axillary abscess | | 2015 | Visit | CARE [address] | Ernie Sanabria MD | (Primary Dx) | | | | [place], [place] | [address] | | | | | [address] | [place] [facility] [place] | | | | | [phone] | [address] | | | | | [...] + + + | Blood Pressure | 98/58 | 11/04/2014 8:41 AM | | | | | PDT | | + + + + + | Pulse | 79 | 11/04/2014 8:41 AM | | | | | PDT | | + + + + + | Temperature | 36.7 C (98 F) | 11/04/2014 8:41 AM | | | | | PDT | | + + + + + | Respiratory Rate | 17 | 11/04/2014 8:41 AM | | | | | PDT | | + + + + + | Oxygen Saturation | 95% | 11/04/2014 8:41 AM | | | | | PDT | | + + + + + | Inhaled Oxygen | - | - | | | Concentration | | | | + + + + + | Weight | 75.6 kg (166 lb 11.2 | 11/04/2014 8:41 AM | | | | oz) | PDT | | + + + + + | Height | 157.5 cm (5' 2") | 11/04/2014 8:41 AM | | | | | PDT | | + + + + + | Body Mass Index | 30.49 | 11/04/2014 8:41 AM | | | | | [...] Patient Instructions Daryl Hargrove Jr., MD - 11/04/2014 9:33 AM PDTRecheck in 4 days for reevaluation and culture report Take medication as directed Use warm compress for 15-20 minutes 2 or 3 times a day documented in this encounter Progress Notes Africa Anthony LPN - 11/04/2014 9:43 AM PDTDressing applied to incision site of left axil vilma abscess. Allyson Jayronically signed by Africa Anthony LPN at 11/04/2014 9 :44 AM Africa Forman LPN - 11/04/2014 9:42 AM PDTConsent for incision and drainage sig venkat prior to procedure. Allyson Jayronically signed by Africa Anthony LPN at 12/2014 9:43 AM Daryl Murray Jr., MD - 11/04/2014 9:23 AM PDTGretchen Álvaro bonilla has had recurrent axillary abscesses in the past. Current problem started one week ag o with progressive swelling and redness and no drainage. Currently very painful. She's had no high fever or chills. Physical exam: No acute distress, nontoxic in appearance BP 98/58 mmHg | Pulse 79 | Temp(Src) 36.7 C (98 F) (Temporal) | Resp 17 | Ht 1.575 m (5 ' 2") | Wt 75.615 kg (166 lb 11.2 oz) | BMI 30.48 kg/m2 | SpO2 95% | ? No Left axilla: Erythematous fluctuant 2 cm in diameter lesion, no lymphangitis Diagnosis: Left axillary abscess Procedure: Anesthesia with 1% with epinephrine, after good anesthesia the abscess was opene d with a 5 mm punch biopsy with drainage of large amount of purulent material - culture was taken Plan: Culture, Septra, recheck in 4 days, vicodin documente d in this encounter Plan of Treatment +--------+---------+ [...] | | | | | | [place], | | | | | | [place] [address] | | | | | | [phone] | | | | | | | | +--------+---------+ + + + documented as of this encounter Procedures + +--------+ + + + | Procedure Name | Priori | Date/Time | Associated Diagnosis | Comments | | | ty | | | | + +--------+ + + + | CULTURE, WOUND, | Routin | 11/04/2014 | Axillary abscess | Results for this | | SMEAR | e | 9:10 AM | | procedure are in the | | | | PDT | | results section. | + +--------+ + + + documented in this encounter Results Culture, Wound, Smear (11/04/2014 9:10 AM PDT) + + + + + + | Component | Value | Ref Range | Performed | Pathologist | | | | | At | Signature | + + + + + + | Culture | 1+ Coagulase negative | | [facility] | | | | StaphylococcusComment: | | [facility] | | | | Consistent with skin | | MEDICAL | | | | vivek. | | CENTER - | | | | | | LABORATORY | | + + + + + + | Gram Stain | 3+ White Blood Cells | | [facility] | | | Result | | | [facility] | | | | | | MEDICAL | | | | | | CENTER - | | | | | | LABORATORY | | + + + + + + | Gram Stain | 1+ Epithelial cells | | [facility] | | | Result | | | [facility] | | | | | | MEDICAL | | | | | | CENTER - | | | | | | LABORATORY | | + + + + + + | Gram Stain | 1+ Gram positive cocci | | [facility] | | | Result | | | [facility] | | | | | MEDICAL | | | | | | CENTER - | | | | | | LABORATORY | | + + + + + + + + | Specimen | + + | Wound - Entire | | axillary region | | (body structure) | + + + + + + + | Performing | Address | City/State/Zipcode | Phone Number | | Organization | | | | + + + + + | [facility] | [address] | [place] | [phone] | | [facility] | | [address] | | | - LABORATORY | | | | + + + + + documented in this encounter Visit Diagnoses + + | Diagnosis | + + | Axillary abscess - Primary Cellulitis and abscess of upper arm and forearm | + + documented in this encounter
--- OUTSIDE RECORDS SUMMARY | ~2019-01-15 | XMS | Encounter Summary ---
Demographics + + + | Address | [address] | | | [place] [address] | + + + | Home Phone [...] + | Author | [facility] | | | and [place] | + + + | Organization | [facility] | | | and [...] Team Providers + +------+ + | Care Youth Probation Officer Name | Role | Phone | + +------+ + | Juan Cherry DO | PCP | | + +------+ + Encounter Details +--------+ + + + + | Date | Type | Department | Care Team | Description | +--------+ + + + + | 01/07/ | Hospital | [facility] | Lencho [place], | Contusion of foot | | 2012 | Encounter | MED CTR XRAY [address] | MD [address] | including toes | | | | [place] | [place], [place] | | | | | [place] [address] | [address] | | | | | [phone] | | | +--------+ + + + [...] | | Inhale 2 puffs into | 3 | 3 | 09/08/19 | | | albuterol-ipratropiu | the lungs 4 times | Inhaler | | 13 | 3 | | m (COMBIVENT) 103-18 | daily. | | | | | | mcg/puff inhaler | | | | | [...] 0 | | | | (VITAMIN D3) 1999 | Daily. | | | | 4 [...] orally daily | 30 | 0 | 09/08/19 | | | (DELTASONE) 10 mg | for 3 days then | tablet | | 13 | 3 | | tablet | decrease by 1 tab | | | | | | | every 3 days. | | | | | + + + +---------+ + + | tiotropium | Inhale 18 mcg into | | 0 | | | | (SPIRIVA) 18 mcg | the lungs Daily. | | | | 3 | | inhalation capsule | | | | | | [...] [place] | | | | | | [address] | | | | | | | | +--------+---------+ + + + | 11/24/ | Office | Cardiology | [place], | | | 2019 | Visit | | SINDHU Erickson [address] | | | | | | [place], | | | | | | [place] [address] | | | | | | [phone] | | | | | | | | +--------+---------+ + + + documented as of this encounter Procedures + +--------+ + + + | Procedure Name | Priori | Date/Time | Associated Diagnosis | Comments | | | ty | | | | + +--------+ + + + | XR FOOT LEFT 3 + VW | Routin | 01/07/2013 | Contusion of foot | Results for this | | | e | 2:30 PM | including toes | procedure are in the | | | | PST | | results section. | + +--------+ + + + documented in this encounter Results XR Foot Left 3 + Vw (01/07/2013 2:30 PM PST) + + | Specimen | + + | | + + + + + | Narrative | Performed At | + + + | [facility] | [facility] | | Department [address] [facility] | [facility] | | [ rep [phone]] [ rep [facility] | | [facility]] Signed | - IMAGING | | | | | Patient Name: JADYN SCHMITZ | | | Physician: FRANCA : 1965 Age: 47 Sex: F Unit | | | #: [id number] Exam Date: 01/07/13 [place]: | | | [facility] [place] [place] #: [id number] Page: | | | %(RAD)RES..mtdd.print.filter("pg") of %(RAD) | | | RES..mtdd.print.filter("tpg") | | | | | | Accession Number: [id number] | | | LEFT FOOT, 01/07/2013 CLINICAL [...] Transcribed | | | Date/Time: 01/07/2013 15:01 History Department Chair: | | | <<Signature on File>> | | | Kobe | | | MD Tor01/07/13 1706 <Electronically signed by Kobe Lentz MD> | | | Kobe Lentz MD 01/07/13 1430 History Department Chair: [employer] | | | Wycroulqivqgr64/14/13 1501 [place] MD | | + + + + + + + + | Performing | Address | City/State/Zipcode | Phone Number | | Organization | | | | + + + + + | [facility] | [address] | [place] | [phone] | | [facility] | | [address] | | | - IMAGING | | | | + + + + + documented in this encounter Visit Diagnoses + + | Diagnosis | + + | Contusion of foot including toes Contusion of foot | + + documented in this encounter
--- OUTSIDE RECORDS SUMMARY | ~2019-01-15 | XMS | Encounter Summary ---
Demographics + + + | Address | [address] | | | [place] [address] | + + + | Home Phone [...] Team Providers + +------+ + | Care Home Fire Alarm Installer Name | Role | Phone | + +------+ + | Juan Cherry DO | PCP | | + +------+ + Encounter Details +--------+ + + + + | Date | Type | Department | Care Team | Description | +--------+ + + + + | 02/27/ | Hospital | [facility] | Mukul Clark MD | Pulmonary emphysema, | | 2017 | Encounter | MED CTR PULMONARY | [address] | unspecified | | | | FUN[address] | [address] [place] | emphysema type (HCC) | | | | [place], | [address] | | | | | [place] [address] | | | | | | [phone] | | | +--------+ + + + [...] | | | | | order to [facility]. | | | | | [...] | | send order to [facility] | | | | | | | [facility]. | | | | | [...] | | | | | | | ([facility]) | | | | | | + + + +---------+ + + | B-D 3CC LUKRUNAL-UYEN | | | 0 | 09/13/19 | | | SYR 25GX1/2" 25G X | | | | 16 | 7 | | 1-1/2" 3 ML MISC | | | | | | + + + +---------+ + + | | Take 1 capsule by | | 0 | 10/13/19 | | | Kvvtdaudag-KADW-Tdqp | mouth as needed. | | | 16 | 7 | | -Cod [id number] MG | | | | | | [...] [place] | | | | | | [id number] | | | | | | | | +--------+---------+ + + + | 11/24/ | Office | Cardiology | [place], | | | 2019 | Visit | | SINDHU Erickson [address] | | | | | | [place] | | | | | | [place] [address] | | | | | | [phone] | | | | | | | | +--------+---------+ + + + documented as of this encounter Procedures + +--------+ + + + | Procedure Name | Priori | Date/Time | Associated Diagnosis | Comments | | | ty | | | | + +--------+ + + + | PFT PULMONARY | JOHNNY | 02/29/2016 | Pulmonary | Results for this | | FUNCTION TESTING | | 6:34 AM | emphysema, | procedure are in the | | ORDERS | | PST | unspecified | results section. | | | | | emphysema type (HCC) | | + +--------+ + + + | PFT PULMONARY | JOHNNY | 02/29/2016 | Pulmonary | Results for this | | FUNCTION TESTING | | 6:34 AM | emphysema, | procedure are in the | | ORDERS | | PST | unspecified | results section. | | | | | emphysema type (HCC) | | + +--------+ + + + | PFT PULMONARY | JOHNNY | 02/29/2016 | Pulmonary | Results for this | | FUNCTION TESTING | | 6:34 AM | emphysema, | procedure are in the | | ORDERS | | PST | unspecified | results section. | | | | | emphysema type (HCC) | | + +--------+ + + + documented in this encounter Results Pulmonary function test (02/29/2016 6:34 AM PST) + + + | Narrative | Performed At | + + + | Kevin | | | MD Jaime 02/29/2016 6:34 PULMONARY FUNCTION TESTING | | | SPIROMETRY: The prebronchodilator FVC was 2.65 L or 84 % of predicted. | | | The prebronchodilator FEV1 was 1.43 L or 55 % of predicted. FEV1/FVC | | | ratio was 54 %. No significant change in airflow following | | | inhalation of bronchodilators. LUNG VOLUMES: The patient was unable to | | | perform lung volume measurement to ATS standards. DIFFUSION | | | CAPACITY: The diffusion capacity was 16.4 mL/mmHg per minute or 65 % | | | of predicted. IMPRESSION: Spirometry is consistent with moderate | | | obstructive physiology.Diffusion capacity is mildly reduced and is not | | | corrected for measured hemoglobin. Compared to pulmonary function | | | tests performed 11/14/11 the patient's post bronchodilator FEV1 as | | | fallen and apparent 39%. The diffusion capacity has decreased an | | | apparent 7%. Test performed: 02/28/16Electronically signed by: Kevin | | | Romi Sandoval MD 02/29/2016 6:30[facility] | | |IMPRESSION: Spirometry is consistent with moderate obstructive | | |physiology.Diffusion capacity is mildly reduced and is not | | |corrected for measured hemoglobin. | | | | | |Compared to pulmonary function tests performed 11/14/11 the | | |patient's post bronchodilator FEV1 as fallen and apparent 39%. | | |The diffusion capacity has decreased an apparent 7%. | | | | | |Test performed: 02/28/16 | | |Electronically signed by: Kevin Sandoval MD 02/29/2016 6:30 | | |[facility] | | + + + documented in this encounter Visit Diagnoses + + | Diagnosis | + + | Pulmonary emphysema, unspecified emphysema type (HCC) | + + documented in this encounter Administered Medications + +--------+ +--------+------+------+ | Medication Order | MAR | Action | Dose | Rate | Site | | | Action | Date | | | | + +--------+ +--------+------+------+ | albuterol 2.5 mg/3 mL nebulizer | Given | 02/27/19 | 2.5 mg | | | | solution 2.5 mg 2.5 mg, | | 17 11:30 | | | | | Nebulization, RT Once, 02/28/16 | | AM PST | | | | | at 1200, For 1 dose, RT will | | | | | | | administer., | | | | | | + +--------+ +--------+------+------+ +---+---+ | | | +---+---+ documented in this encounter
--- OUTSIDE RECORDS SUMMARY | ~2019-01-15 | XMS | Encounter Summary ---
Demographics + + + | Address | [address] | | | [place] [address] | + + + | Home Phone [...] + + + | Author | [facility] | | | and [place] | + + + | Organization | [facility] | | | and [...] Team Providers + +------+ + | Care School Cafeteria Cook Head Name | Role | Phone | + +------+ + | Juan Cherry DO | PCP | | + +------+ + Reason for Referral Physical Medicine (Routine) +--------+ + + + + + | Status | Reason | Specialty | Diagnoses / | Referred By | Referred To | | | | | Procedures | Contact | Contact | +--------+ + + + + + | Closed | Specialty | Physical | Diagnoses | [place] | | | Services | Therapy | | Grant Maynard MD | Pt Acute | | | Required | | Fibromyalgia | [address] | [address] | | | | | | [address] [place] | [place], | | | | | | [place], [place] | [place] | | | | | | [address] | [address] | | | | | | Phone: | Phone: | | | | | | [phone] | [phone] | | | | | | Fax: | Fax: | | | | | | [phone] | [phone] | +--------+ + + + + + Reason for Visit + + + | Reason | Comments | + + + | New Patient | Establish care | + + + Encounter Details +--------+---------+ + + + | Date | Type | Department | Care Team | Description | +--------+---------+ + + + | 03/02/ | Office | [facility] | Grant Castle, | ORGANIC INSOMNIA | | 2013 | Visit | MEDICINE [place] | [address] | UNSPECIFIED (Primary | | | | [address] | [place] | Dx); Primary | | | | [place] | [address] | central sleep apnea; | | | | [address] | | Tobacco user; | | | | [phone] | | Posttraumatic stress | | | | | | disorder; | | | | | | Unspecified | | | | | | hypothyroidism; | | | | | | Fibromyalgia; | | | | | | BIPOLAR DISORDER | | | | | | UNSPECIFIED | +--------+---------+ + + + Social History [...] + + + | Blood Pressure | 96/70 | 03/02/2012 10:23 AM | | | | | PST | | + + + + + | Pulse | 72 | 03/02/2012 10:23 AM | | | | | PST | | + + + + + | Temperature | 36.4 C (97.5 F) | 03/02/2012 10:23 AM | | | | | PST | | + + + + + | Respiratory Rate | 14 | 03/02/2012 10:23 AM | | | | | PST | | + + + + + | Oxygen Saturation | - | - | | + + + + + | Inhaled Oxygen | - | - | | | Concentration | | | | + + + + + | Weight | 60.7 kg (133 lb 14.4 | 03/02/2012 10:23 AM | | | | oz) | PST | | + + + + + | Height | 157.5 cm (5' 2") | 03/02/2012 10:23 AM | | | | | PST | | + + + + + | Body Mass Index | 24.49 | 03/02/2012 10:23 AM | | | | | PST | | + + + + + documented in this encounter Patient Instructions Patient Instructions Grant Castle MD - 03/02/2012 11:40 AM PSTPlease go to bed at the same time every night. This means going to bed around 11:30 on non-work days. This will he lp keep you in a routine. Try to get at least 30 minutes of aerobic exercise every day. Please continue to work at quitting smoking. HOW TO QUIT SMOKING Smoking is one of the hardest habits to break. About half of all those who have ever smoked have been able to quit, and most of those (about 70%) who still smoke want to quit. Here ar e some of the best ways to stop smoking. KEEP TRYING: It takes most smokers about 8 tries before they are finally able to fully quit. So, the mor e often you try and fail, the better your chance of quitting the next time! So, don't give u p! GO COLD TURKEY: Most ex-smokers quit cold turkey. Trying to cut back gradually doesn't seem to work as well , perhaps because it continues the smoking habit. Also, it is possible to fool yourself by i nhaling more while smoking fewer cigarettes. This results in the same amount of nicotine in your body! GET SUPPORT: Support programs can make an important difference, especially for the heavy smoker. These g roups offer lectures, methods to change your behavior and peer support. Call the [facility] Quitline for more information. 542-LJRB-KBN (254-671-1448). Low-cost or free programs are offered by many hospitals, local chapters of the [place] [employer] (404-079-7350) a nd the [place] [employer] (267-296-0113). Support at home is important too. Non-smokers can help by offering praise and encouragement. If the smoker fails to quit, encourage them to try again! FMKN-UUD-HUETJOW MEDICINES: For those who can't quit on their own, Nicotine Replacement Therapy (NRT) may make quitting much easier. Certain aids such as the nicotine patch, gum and lozenge are available without a prescription. However, it is best to use these under the guidance of your doctor. The ski n patch provides a steady supply of nicotine to the body. Nicotine gum and lozenge gives tem porary bursts of low levels of nicotine. Both methods take the edge off the craving for ciga rettes. WARNING: If you feel symptoms of nicotine overdose, such as nausea, vomiting, dizzin ess, weakness, or fast heartbeat, stop using these and see your doctor. PRESCRIPTION MEDICINES: After evaluating your smoking patterns and prior attempts at quitting, your doctor may offe r a prescription medicine such as bupropion (Zyban, Wellbutrin), varenicline (Chantix, [place] ix), a niocotine inhaler or nasal spray. Each has its unique advantage and side effects whic h your doctor can review with you. HEALTH BENEFITS OF QUITTING: The benefits of quitting start right away and keep improving the longer you go without smok in minutes: blood pressure and pulse return to normal 8 hours: oxygen levels return to normal 2 days: ability to smell and taste begins to improve as damaged nerves start to regrow 2-3 weeks: circulation and lung function improves 1-9 months: decreased cough, congestion and shortness of breath; less tired 1 year: risk of heart attack decreases by half 5 years: risk of lung cancer decreases by half; risk of stroke becomes the same as a non -smoker For information about how to quit smoking, visit the following links: National Cancer [place] , Clearing the Air, Quit Smoking Today - an online tejada klet. http://www.smokefree.gov/pubs/clearing_the_air.pdf Smokefree.gov http://smokefree.gov/ QuitNet http://www.quitnet.com/ 9769-0805 Rafael NeumannDeo, [address] [place] [address]. All rights reserve d. This information is not intended as a substitute for professional medical care. Always fo llow your healthcare professional's instructions. INSOMNIA Insomnia refers to a difficulty going to sleep or staying asleep, or both. Insomnia has man y causes, including anxiety, stress, depression, chronic pain, sleeping cycles out of balanc e due to working night shifts or excess napping during the day, and a condition called sl eep apnea . Insomnia can be a side effect from stimulant medicines such as decongestants, asthma inhalers and pills, diet pills, and illegal drugs such as speed, crank, crack, and PC P. HOME CARE: 1. Review your medicines with your doctor or pharmacist to find out if they can cause insom yesika. 2. Caffeine, smoking and alcohol also affect sleep. Limit your daily use and do not use the se before bedtime. Alcohol may make you sleepy at first, but as its effects wear off, you ma y awaken a few hours later and have trouble returning to sleep. 3. Do not exercise, eat or drink large amounts of liquid within 2 hours of your bedtime. 4. Improve your sleep habits. Have a fixed bed and wake-up time. Try to keep noise, light a nd heat in your bedroom at a comfortable level. Try using earplugs or eyeshades if needed. 5. Avoid watching TV in bed. 6. If you do not fall asleep within 30 minutes, try to relax by reading or listening to [employer] music. 7. Limit daytime napping to one 30 minute period, early in the day. 8. Get regular exercise. Find other ways to lessen your stress level. 9. If a medicine was prescribed to help reset your sleep patterns, take it as directed. Sle eping pills are intended for short-term use, only. If taken for too long, the effect wears o ff while the risk of physical addiction and psychological dependence increases. FOLLOW-UP with your doctor or as directed by our staff if you feel that your insomnia is n ot responding to the above measures. GET PROMPT MEDICAL ATTENTION if any of the following occur: Extreme restlessness or irritability Confusion or hallucinations (seeing or hearing things that are not there) Anxiety, depression Several days without sleeping [id number] [facility]ly [facility], [address] [place] [address]. All rights reserve d. This information is not intended as a substitute for professional medical care. Always fo llow your healthcare professional's instructions. documented in this encounter Progress Notes Grant Castle MD - 03/02/2012 11:25 AM PSTFormatting of this note might be different fr om the original. Subjective: Patient ID: Rosario Malik is a 47 y.o. female here to establish care and discuss insomn ia. Previous PCP was Dr Cherry - she is interviewing me today to evaluate PCPs. HPI Insomnia for years. She has tried lunesta, ambien without success at staying asleep. Eunicei deepthi wakes up 2-4 hours after falling asleep and then is wide awake and unable to fall back asleep. She feels like this is worsening. She is seeing a sleep specialist - Dr Degroot and Dr London. She has tried behavioral methods recommended to her and feels it isn't work ing. She is wearing CPAP nightly and has appointment with [facility] to adjust the mask. She fee ls fatigued throughout the day. She has avoided taking naps, though feels the need to. She goes to sleep between 9-10 on days she does not work and 11:30-11:45 on nights she does wor k. 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 She does not have TV in her room. Rarely watches TV before bed. She drinks 1.5 cups of coffee in morning. She occasionally has a soda or tea, not every day. She infrequently walks by her self 1 hour day. She stat es she can't do much more than that due to fibromyalgia. She has hope that her sleep will i mprove. She is down to 3 cigarettes per day. Trying to quit. Possible bipolar. She denies the diagnosis, but states she was started on Geodon "many yea rs ago" to help control her depression and dissociative identity disorder. The DID has reso lved. She is unsure when cymbalta and gabapentin were started. She describes her mood as " pretty much up, no extreme ups or downs." If she misses medications her mood will go low. She has had to be admitted to [facility] and [facility] due to suicidal ideation by overdose. Sh drew did attempt suicide once, can't recall the medicine. This was in 1986 and 1988. No thoug hts of SI or HI in years. She has hypothryroidism managed by [facility]. She sees [facility] due to possible [place]'s and possi quentin adrenal insufficiency. She has fibromyalgia treated with cymbalta and tramadol. Tried PT years ago. Can't afford gamigo membership. Patient's medications, allergies, past medical, surgical, social and family histories were reviewed and updated as appropriate. Review of Systems Constitutional: Negative for fever and unexpected weight change. Eyes: Negative for visual disturbance. Respiratory: Negative for shortness of breath. Cardiovascular: Negative for chest pain. Gastrointestinal: Negative for blood in stool. Diarrhea: Intermittent. Constipation: Interm ittent. Genitourinary: Negative for dysuria. Musculoskeletal: Fibromyalgia pains Neurological: Negative for seizures. Hematological: Negative for adenopathy. Psychiatric/Behavioral: See HPI BP 96/70 | Pulse 72 | Temp(Src) 36.4 C (97.5 F) (Oral) | Resp 14 | Ht 1.575 m (5' 2") | Wt 60.737 kg (133 lb 14.4 oz) | BMI 24.49 kg/m2 Objective: Physical Exam Constitutional: She is oriented to person, place, and time. She appears well-developed and well-nourished. No distress. HENT: Head: Normocephalic and atraumatic. Mouth/Throat: Oropharynx is clear and moist. Eyes: EOM are normal. Neck: Neck supple. No thyromegaly present. Cardiovascular: Normal rate, regular rhythm, normal heart sounds and intact distal pulses. Exam reveals no gallop and no friction rub. No murmur heard. Pulmonary/Chest: Effort normal. No respiratory distress. She has no wheezes. She has no ral es. Abdominal: Soft. She exhibits no distension. There is no tenderness. There is no rebound an d no guarding. Musculoskeletal: She exhibits no edema. Lymphadenopathy: She has no cervical adenopathy. Neurological: She is alert and oriented to person, place, and time. No cranial nerve defici t. Psychiatric: Somewhat flattened affect. Thought process tangential, but redirectable. Assessment: Rosario was seen today for new patient. Diagnoses and associated orders for this visit: Posttraumatic stress disorder; Anxiety; Depression; possible Bipolar; possible dissociative identity disorder: Stable. - Continue current medications Organic insomnia unspecified - Reiterated advise and recommendations given by Dr London - Please go to bed at the same time every night. This means going to bed around 11:30 on non-work days. This will help keep you in a routine. - Try to get at least 30 minutes of aerobic exercise every day. - Please continue to work at quitting smoking. - FU with sleep center Unspecified hypothyroidism - Continue levothyroxine - FU with [facility] Tobacco user - Advised to quit Fibromyalgia - Ambulatory referral to Physical Therapy - Continue Cymbalta FU: 1 month if she stays with me. 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
--- OUTSIDE RECORDS SUMMARY | ~2019-01-15 | XMS | Encounter Summary ---
Demographics + + + | Address | [address] | | | [place] [address] | + + + | Home Phone [...] Team Providers + +------+ + | Care Interventional Sale Consultant Name | Role | Phone | [...] | MED CTR EXTERNAL | [address] | | | | | IMAGING | [place] | | | | | [phone] | [place] [address] | | +--------+ + + + + [...] [place] | | | | | | [address] | | | | | | | | +--------+---------+ + + + | 11/24/ | Office | Cardiology | [place], | | | 2019 | Visit | | SINDHU Erickson [address] | | | | | | [place], | | | | | | [place] [address] | | | | | | [phone] | | | | | | | [...] + + documented in this encounter Results ARGENIS Jackson Right 3 + Vw (05/27/2018 10:55 AM [...]
--- OUTSIDE RECORDS SUMMARY | ~2019-01-15 | XMS | Encounter Summary ---
Demographics + + + | Address | [address] | | | [place] [address] | + + + | Home Phone | | + + + | Preferred Language | Unknown | + + + | Marital Status | Single | + + + | Hindu Affiliation | 1041 | + + + | Race | Unknown | + + + | Ethnic Group | Unknown | + + + Author + + + | Author | [facility] | | | and [place] | + + + | Organization | [facility] | | [...] Providers + +------+ + | Care Senior Production Supervisor Name | Role | Phone | [...] [place], | | | | | | [place] [address] | | | | | | [phone] | | | +--------+ + + + [...] Progress Notes Kathi Soto, Speech Pathologist - 05/30/2016 1:32 PM [facility] [address] [place] [address] Cancellation/No Show Date: 05/30/2016 Patient Information Patient Name: Rosario Malik Date of : 1965 Age: 51 y.o. Reason for missed visit: Cancellation- NO staff climate scientist Phone call placed: yes - pt called [...] [place] | | | | | | [phone] | | | | | | | | +--------+---------+ + + + | 11/24/ | Office | Cardiology | [place] | | | 2019 | Visit | | SINDHU Erickson [address] | | | | | | [place] | | | | | | [place] [address] | | | | | | [phone] | | | | | | | | +--------+---------+ + + + documented as of this encounter Visit Diagnoses Not on filedocumented in this encounter"
--- OUTSIDE RECORDS SUMMARY | ~2019-01-15 | XMS | Encounter Summary ---
Demographics + + + | Address | [address] | | | [place] [address] | + + + | Home Phone | | + + + | Preferred Language | Unknown | + + + | Marital Status | Single | + + + | Jewish Affiliation | 1041 | + + + | Race | Unknown | + + + | Ethnic Group | Unknown | + + + Author + + + | Author | [facility] | | | and [place] | + + + | Organization | [facility] | | [...] Team Providers + +------+ + | Care Assistant Finance Manager Name | Role | Phone | + +------+ + | Juan Cherry DO | PCP | | + +------+ + Encounter Details +--------+ + + + + | Date | Type | Department | Care Team | Description | +--------+ + + + + | 02/12/ | Hospital | [facility] | Nesotr Martinez, | | | 2012 | Encounter | MED CTR EMERGENCY | MD [address] | | | | | CENTER [address] | [place], [place] | | | | | [place], [place] | [address] | | | | | [address] | | | | | | [phone] | | | +--------+ + + + [...] | | | order to [facility]. | | | | | + [...] | | send order to [facility] | | | | | | | [facility]. | | | | | | [...] [place] | | | | | | [address] | | | | | | | | +--------+---------+ + + + | 11/24/ | Office | Cardiology | [place], | | | 2019 | Visit | | SINDHU Erickson [address] | | | | | | [place], | | | | | | [place] [address] | | | | | | [phone] | | | | | | | | +--------+---------+ + + + documented as of this encounter Visit Diagnoses Not on filedocumented in this encounter"
--- OUTSIDE RECORDS SUMMARY | ~2019-01-15 | XMS | Encounter Summary ---
Demographics + + + | Address | [address] | | | [place] [address] | + + + | Home Phone [...] Team Providers + +------+ + | Care Drum Operator Name | Role | Phone | + +------+ + | Juan Cherry DO | PCP | | + +------+ + Encounter Details +--------+ + + + + | Date | Type | Department | Care Team | Description | +--------+ + + + + | 06/18/ | Hospital | [facility] | Kevin Sandoval, | COPD (chronic | | 2013 | Encounter | MED CTR XRAY [address] | MD [address] | obstructive | | | | [place] | [place] | pulmonary disease) | | | | [place] [address] | [address] | | | | | [phone] | | | +--------+ + + + [...] | | | order to [facility]. | | | | | + [...] | | | | send order to [facility] | | | | | | | [facility]. | | | | | | [...] [place] | | | | | | [address] | | | | | | | | +--------+---------+ + + + | 11/24/ | Office | Cardiology | [place], | | | 2019 | Visit | | SINDHU Erickson [address] | | | | | | [place], | | | | | | [place] [address] | | | | | | [phone] | | | | | | | | +--------+---------+ + + + documented as of this encounter Procedures + +--------+ + + + | Procedure Name | Priori | Date/Time | Associated Diagnosis | Comments | | | ty | | | | + +--------+ + + + | XR CHEST PA AND | Routin | 06/18/2013 | COPD (chronic | Results for this | | LATERAL | e | 12:29 PM | obstructive | procedure are in the | | | | PDT | pulmonary disease) | results section. | + +--------+ + + + documented in this encounter Results XR Chest PA and Lateral (06/18/2013 12:29 PM PDT) + + | Specimen | + + | | + + + + + | Narrative | Performed At | + + + | XR CHEST PA AND LATERAL 06/18/2013 12:29 PM HISTORY: please | [facility] | | evaluate status of RLL changes from 04/05/13. COMPARISON: Numerous | LAB | | previous chest x-rays most recently 05/23/2013. Findings: The | | | heart is not enlarged. Aorta is normal. Mediastinum is unremarkable. | | | Central pulmonary vasculature is normal. Previously observed airspace | | | disease in the left lower lobe has resolved. There is some mild | | | scarring of the left lung base. Bilateral lungs are clear otherwise | | | with no evidence for pleural effusion or pneumothorax. There are no | | | acute osseous abnormalities. IMPRESSION - RESOLUTION OF LEFT | | | LOWER LOBE AIRSPACE DISEASE. Dictated and Signed by: Kobe Lentz | | | Electronically signed: 06/18/2013 1:04 PM | | + + + + + | Procedure Note | + + | Reed, Rad Results In - 06/18/2013 1:07 PM PDT XR CHEST PA AND LATERAL 06/18/2013 12:29 | | PMHISTORY: please evaluate status of RLL changes from 04/05/13.COMPARISON: Numerous | | previous chest x-rays most recently 05/23/2013.Findings:The heart is not enlarged. Aorta | | is normal. Mediastinum is unremarkable. Centralpulmonary vasculature is normal. | | Previously observed airspace disease in theleft lower lobe has resolved. There is some | | mild scarring of the left lung base.Bilateral lungs are clear otherwise with no evidence | | for pleural effusion orpneumothorax. There are no acute osseous | | abnormalities.IMPRESSION -RESOLUTION OF LEFT LOWER LOBE AIRSPACE DISEASE.Dictated and | | Signed by: Kobe Lentz MD Electronically signed: 06/18/2013 1:04 PM | |left lower lobe has resolved. There is some mild scarring of the left lung base. | |Bilateral lungs are clear otherwise with no evidence for pleural effusion or | |pneumothorax. There are no acute osseous abnormalities. | | | |IMPRESSION - | |RESOLUTION OF LEFT LOWER LOBE AIRSPACE DISEASE. | | | |Dictated and Signed by: Kobe Lentz MD | | Electronically signed: 06/18/2013 1:04 PM | + + + +---------+ + + | Performing | Address | City/State/Zipcode | Phone Number | | Organization | | | | + +---------+ + + | [facility] | | | [phone] | + +---------+ + + | [facility] | | | [phone] | + +---------+ + + documented in this encounter Visit Diagnoses + + | Diagnosis | + + | COPD (chronic obstructive pulmonary disease) Chronic airway obstruction, not | | elsewhere classified | + + documented in this encounter"
--- OUTSIDE RECORDS SUMMARY | ~2019-01-15 | XMS | Encounter Summary ---
Demographics + + + | Address | [address] | | | [place] [address] | + + + | Home Phone [...] Team Providers + +------+ + | Care Lure Maker Name | Role | Phone | [...] | | MD Jared | [address] | | | | | Pericarditis | [address] | [place], | | | | | Procedures | [address] | [place] | | | | | ECHO | [place], | [address] | | | | | Complete | [place] [address] | Phone: | | | | | | Phone: | [phone] | | | | | | [phone] | Fax: | | | | | | Fax: | [phone] | | | | | | [phone] | | +--------+--------+ + + + + [...] | | MD Jared | [address] | | | | | Pericarditis | [address] | [place], | | | | | Procedures | [address] | [place] | | | | | ECHO | [place], | [address] | | | | | Complete | [place] [address] | Phone: | | | | | | Phone: | [phone] | | | | | | [phone] | Fax: | | | | | | Fax: | [phone] | | | | | | [phone] | | +--------+--------+ + + + + Encounter Details +--------+ + + + + | Date | Type | Department | Care Team | Description | +--------+ + + + + | 01/14/ | Hospital | [facility] | Jared Mcdonough, | Pericarditis | | 2013 | Encounter | MED CTR ECHO [address] | [address] | | | | | [address] [place] | [place], | | | | | [place] [address] | [place] [address] | | | | | [phone] | [phone] | | | | | | | | | | | | Freddy Webb | | | | | | Jr. Technologist | | +--------+ + + + + [...] | | | | | order to [facility]. | | | | | [...] | | | send order to [facility] | | | | | | | [facility]. | | | | | | | [...] | | | | | | [place] [address] | | | | | | [phone] | | | | | | | | +--------+---------+ + + + documented as of this encounter Procedures + +--------+ + + + | Procedure Name | Priori | Date/Time | Associated Diagnosis | Comments | | | ty | | | | + +--------+ + + + | ECHO COMPLETE | Routin | 01/14/2014 | Pericarditis | Results for this | | | e | 8:38 AM | | procedure are in the | | | | PST | | results section. | + +--------+ + + + | LVEF VALUE | Routin | 01/14/2014 | | Results for this | | [...] Performed At | + + + | MERGED WITH [facility]CH[facility]PORT | [place] | | STUDY DATE: 01/14/2014 PATIENT NAME: Rosario Malik | [facility] | | : 1965 PCP: Juan Cherry, [facility] | | CLINICAL HISTORY/DIAGNOSIS: Pericarditis/pericardial [...] by: | | | Jared Mcdonough MD [facility] 01/14/2014 8:40 Traffic Controller Cable: | | | Charmaine Ibarra RDMS | | + + + + + | Procedure Note | + + | Jared Mcdonough MD - 01/14/2014 11:[address] [facility] | | CENTERECHOCARDIOGRAM REPORTSTUDY DATE: 01/14/2014PATIENT NAME: Rosario AyersOB: | | 1965MRN: [id number]: EFREN GuillaumeLINICAL HISTORY/DIAGNOSIS: | | Pericarditis/pericardial effusionA [...] | mmHgLA volume: 30 mLLA index: 18 mL/h2Pdxmfd Inflow DT: 262 msIVRT: 75 msValsalva: | | NegativePWDTI S wave: 8.7 cm/sPWDTI E wave: 9.0 cm/sPWDTI A wave: 11.5 cm/sE/A Ratio: | | 0.783E/E Ratio: 8.95Signed by: Jared Mcdonough MD [facility] 01/14/2014 8:40 | | Traffic Controller Cable: Charmaine Ibarra RDMS | | | | [...] | | |Signed by: Jared Mcdonough MD [facility] | | 01/14/2014 8:40 | | | | | |Traffic Controller Cable: Charmaine Ibarra RDMS | + + + + + + + | Performing | Address | City/State/Zipcode | Phone Number | | Organization | | | | + + + + + | [address] | [address] | [place] | [phone] | | [facility] | | [address] | | | - IMAGING | | | | + + + + + LVEF VALUE (01/14/2014) + +-------+ + + + | Component | Value | Ref Range | Performed | Pathologist | | | | | At | Signature | + +-------+ + + + | LVEF-TTE | 65 | | | | | TRANSTHORAC | | | | | | IC ECHO | | | | | + +-------+ + + + documented in this encounter Visit Diagnoses + + | Diagnosis | + + | Pericarditis Unspecified disease of pericardium | + + documented in this encounter
--- OUTSIDE RECORDS SUMMARY | ~2019-01-15 | XMS | Encounter Summary ---
Demographics + + + | Address | [address] | | | [place] [address] | + + + | Home Phone | | + + + | Preferred Language | Unknown | + + + | Marital Status | Single | + + + | Yarsani Affiliation | [id number] | + + + | Race | Unknown | + + + | Ethnic Group | Unknown | + + + Author + + + | Author | [facility] | | | and [place] | + + + | Organization | [facility] | | | [...] Team Providers + +------+ + | Care Chemist Physical Name | Role | Phone | + [...] + + | 02/02/ | Off-Site | [facility] | Jared Mcdonough, | Paroxysmal atrial | | 2015 | Visit | CARDIOLOGY [address] | MD [address] [place] | tachycardia (HCC) | | | | [place], | [place], | (Primary Dx); | | | | [place] [address] | [place] [address] | Syncope, unspecified | | | | [phone] | [phone] | syncope type; | | | | | | Palpitations | | | | | Ashlee Allison ARNP | | | | | | [address] [place] [address] | | | | | | [place] | | | | | | [phone] | | | | | | | [...] she is currently in the process of b eing evaluated to be able to start using [...] She takes this daily Respiratory Therapy Supplies [facility] Please provide patient with necessary CPAP supplies ( she did not specify, okay to send order as appropriate) Diagnosis Code(s)327.23 . Length of Need 99 months. Please send order to [facility]. 1 each 0 Respiratory Therapy Supplies [facility] Change CPAP back to 11-14 cm H2O. All necessary suppl ies. No oxygen bleed in. Diagnosis Code(s)327.23. Length of Need: Lifetime. Please send orde r to [facility]. This is not a new [...] She was seen at the ED of [facility] 3 weeks ago and again 1 [...] She is in a class II of [employer] functional class. There is no [...] and ventricular function don e at the [facility]. LVEF 78%. C. Holter Monitor 08/16/13 [...] concerns. Electronically signed by: Jared Mcdonough MD [facility] 02/02/2015 Portions of this chart may have been created with [employer] voice recognition software. Occasi onal wrong-word or sound-alike substitutions may have occurred due to the inherent cárdenas itations of voice recognition software. Please read the chart carefully and recognize, using context, where these substitutions have occurred. I, SINDHU Shafer, am acting as a scribe on behalf of, and in the presence of Jared westbrook MD. docume nted in this encounter Plan of Treatment +--------+---------+ [...] | | | | | | [place] [address] | | | | | | [phone] | | | | | | | | +--------+---------+ + + + documented as of this encounter Visit Diagnoses + + | Diagnosis | + + | Paroxysmal atrial tachycardia (HCC) - Primary Paroxysmal supraventricular tachycardia | + + | Syncope, unspecified syncope type | + + | Palpitations | + + documented in this encounter
--- OUTSIDE RECORDS SUMMARY | ~2019-01-15 | XMS | Encounter Summary ---
Demographics + + + | Address | [address] | | | [place] [address] | + + + | Home Phone [...] Providers + +------+ + | Care Home Teaching Grades 7 And 8 Teacher Name | Role | Phone | + +------+ + | Juan Cherry DO | PCP | | + +------+ + Encounter Details +--------+ + + + + | Date | Type | Department | Care Team | Description | +--------+ + + + + | 09/09/ | Hospital | [facility] | Conversion | Pain | | 2015 | Encounter | CONVERSION [address] | Transaction, | | | | | [address] | Provider Unknown | | | | | [place], [place] | [phone] | | | | | [address] | | | | | | [phone] | | | +--------+ + + + [...] | | | | | order to [facility]. | | | | | + [...] | | | | send order to [facility] | | | | | | | [facility]. | | | | | | | [...] | | | | | ([facility]) | | | | | | [...] | | | | [place] [facility] | | | | | | [address] | | | | | | | | +--------+---------+ + + + | 11/24/ | Office | Cardiology | [place], | | | 2019 | Visit | | SINDHU Erickson [address] | | | | | | [place], | | | | | | [place] [address] | | | | | | [phone] | | | | | | | | +--------+---------+ + + + documented as of this encounter Procedures + +--------+ + + + | Procedure Name | Priori | Date/Time | Associated Diagnosis | Comments | | | ty | | | | + +--------+ + + + | XR CHEST 1 VIEW | Routin | 07/04/2011 | | Results for this | | | e | 12:49 AM | | procedure are in the | | | | PDT | | results section. | + +--------+ + + + documented in this encounter Results XR Chest 1 Vw (07/04/2011 12:49 AM PDT) + + | Specimen | [...]
--- OUTSIDE RECORDS SUMMARY | ~2019-01-15 | XMS | Encounter Summary ---
Demographics + + + | Address | [address] | | | [place] [address] | + + + | Home Phone [...] Team Providers + +------+ + | Care Plug Assembler Name | Role | Phone | + +------+ + PCP | Unavailable | + +------+ + Encounter Details +--------+ + + + + | Date | Type | Department | Care Team | Description | +--------+ + + + + | 07/31/ | Hospital | [facility] | Abigail Ozzie | | | 2010 | Encounter | [facility] EM[facility]Y | MD Ran [address] | | | | | [place] [address] | [address] [facility] | | | | | [place], [place] | [place] [address] | | | | | [address] | [phone] | | | | | [phone] | | | +--------+ + + + [...] [place] | | | | | | [address] | | | | | | | | +--------+---------+ + + + | 11/24/ | Office | Cardiology | [place], | | | 2019 | Visit | | SINDHU Erickson [address] | | | | | | [place], | | | | | | [place] [address] | | | | | | [phone] | | | | | | | | +--------+---------+ + + + documented as of this encounter Procedures + +--------+ + + + | Procedure Name | Priori | Date/Time | Associated Diagnosis | Comments | | | ty | | | | + +--------+ + + + | URINALYSIS, REFLEX | Routin | 07/31/2010 | | Results for this | | MICROSCOPIC AND/OR | e | 4:11 AM | | procedure are in the | | CULTURE | | PDT | | results section. | + +--------+ + + + | CBC WITH | Routin | 07/31/2010 | | Results for this | | DIFFERENTIAL | e | 4:11 AM | | procedure are in the | | | | PDT | | results section. | + +--------+ + + + | LIPASE | Routin | 07/31/2010 | | Results for this | | | e | 4:11 AM | | procedure are in the | | | | PDT | | results section. | + +--------+ + + + | COMPREHENSIVE | Routin | 07/31/2010 | | Results for this | | METABOLIC PANEL | e | 4:11 AM | | procedure are in the | | | | PDT | | results section. | + +--------+ + + + | CT ABDOMEN PELVIS W | | 07/31/2010 | | Results for this | | CONTRAST | | 2:22 AM | | procedure are in the | | | | PDT | | results section. | + +--------+ + + + documented in this encounter Results Urinalysis, Reflex Microscopic and/or Culture (07/31/2010 4:11 AM PDT) + + + + + [...] + + + + | Color | ORANGEComment: HIGHLY | | [facility] | | | | COLORED URINES MAY CAUSE | | [facility] | | | | FALSE POSITIVE CHEMICAL | | MEDICAL | | | | RESULTS. | | CENTER - | | | [...] | 1.010 | 1.001 - 1.030 | [facility] | | | [place] | | | [facility] | | | | | | MEDICAL | | | | | | CENTER - | | | | | | LABORATORY | | + + + + + + | Blood, | NEGATIVE | NEGATIVE | [facility] | | | Urine | | | [facility] | | | | | | MEDICAL | | | | | | CENTER - | | | | | | LABORATORY | | + + + + + + | pH, Urine | 6.0 | 5.0 - 8.0 | [facility] | | | | | | [facility] | | | | | | MEDICAL | | | | | | CENTER - | | | | | | LABORATORY | | + + + + + + | Protein, | TRACE | NEGATIVE mg/dL | [facility] | | [...] + + + + | Nitrite, | POSITIVE | NEGATIVE | [facility] | | | Urine | | | [facility] | | | | | | MEDICAL | | | | | | CENTER - | | | | | | LABORATORY | | + + + + + + | Leukocyte | NEGATIVE | NEGATIVE | [facility] | | | Esterase, | | | [facility] | | | Urine | | | MEDICAL | | | | | | CENTER - | | | | | | LABORATORY | | + + + + + + | WBC UA | 0-2 | 0 - 1 /hpf | [facility] | | | | | | [facility] | | | | | | MEDICAL | | | | | | CENTER - | | | | | | LABORATORY | | + + + + + + | RBC UA | NONE | 0 - 4 /hpf | [facility] | | | | | | [facility] | | | | | | MEDICAL | | | | | | CENTER - | | | | | | LABORATORY | | + + + + + + | SQUAMOUS | FEW | FEW /hps | [facility] | | [...] + | [facility] | [address] | [place] | [phone] | | [facility] | | [address] | | | - LABORATORY | | | | + + + + + | [facility] | [address] | [place] | | | [facility] | | [address] | | | - LABORATORY | | | | + + + + + Comprehensive Metabolic Panel (07/31/2010 4:11 AM PDT) + + + + + + | Component | Value | Ref Range | Performed | Pathologist | | | | | At | Signature | + + + + + + | Glucose | 72 | 70 - 109 mg/dL | [facility] | | | | | | [facility] | | | | | | MEDICAL | | | | | | CENTER - | | | | | | LABORATORY | | + + + + + + | Calcium | 8.6 | 8.3 - 10.5 | [facility] | | | | | mg/dL | [facility] | | | | | | MEDICAL | | | | | | CENTER - | | | | | | LABORATORY | | + + + + + + | Alkaline | 66 | 40 - 110 IU/L | [facility] | | | Phosphatase | | | [facility] | | | | | | MEDICAL | | | | | | CENTER - | | | | | | LABORATORY | | + + + + + + | AST | 26 | 10 - 42 IU/L | [facility] | | | | | | [facility] | | | | | | MEDICAL | | | | | | CENTER - | | | | | | LABORATORY | | + + + + + + | ALT | 21 | 6 - 45 IU/L | [facility] | | | | | | [facility] | | | | | | MEDICAL | | | | | | CENTER - | | | | | | LABORATORY | | + + + + + + | Bilirubin | 0.8 | 0.2 - 1.0 mg/dL | [facility] | | | Total | | | [facility] | | | | | | MEDICAL | | | | | | CENTER - | | | | | | LABORATORY | | + + + + + + | Total | 6.0 | 6.0 - 7.8 gm/dL | [facility] | | | Protein | | | [facility] | | | | | | MEDICAL | | | | | | CENTER - | | | | | | LABORATORY | | + + + + + + | Albumin | 3.3 | 3.2 - 5.0 gm/dL | [facility] | | | | | | [facility] | | | | | | MEDICAL | | | | | | CENTER - | | | | | | LABORATORY | | + + + + + + | BUN | 7 | 7 - 18 mg/dL | [facility] | | | | | | [facility] | | | | | | MEDICAL | | | | | | CENTER - | | | | | | LABORATORY | | + + + + + + | Creatinine | 0.60 | 0.60 - 1.30 | [facility] | | | | | mg/dL | [facility] | | | | | | MEDICAL | | | | | | CENTER - | | | | | | LABORATORY | | + + + + + + | Estimated | >60Comment: For | >60 mL/min/A | [facility] | | | GFR | -Americans, | | [facility] | | | | please multiply the | | MEDICAL | | | | result by 1.210 | | CENTER - | | | | This is an estimated | | LABORATORY | | | | GFR and is based on | | | | | | a standard body | | | | | | mass and serum | | | | | | creatinine | | | | + + + + + + | BUN/Creatin | 11.7 (L) | 12 - 20 | [facility] | | | ine Ratio | | | [facility] | | | | | | MEDICAL | | | | | | CENTER - | | | | | | LABORATORY | | + + + + + + | Na | 141 | 136 - 149 mEq/L | [facility] | | | | | | [facility] | | | | | | MEDICAL | | | | | | CENTER - | | | | | | LABORATORY | | + + + + + + | K | 3.0 (L)Comment: LOW | 3.5 - 5.1 mEq/l | [facility] | | | | POTASSIUM OFTEN | | [facility] | | | | ASSOCIATES WITH LOW | | MEDICAL | | | | MAGNESIUM. IF THIS MAY | | CENTER - | | | | BE RELEVANT IN THIS | | LABORATORY | | | | CASE, PLEASE ORDER | | | | | | MAGNESIUM LEVEL. | | | | + + + + + + | Cl | 111 (H) | 98 - 109 mEq/l | [facility] | | | | | | [facility] | | | | | [facility] | | | | | | CENTER - | | | | | | LABORATORY | | + + + + + + | CO2 | 24 | 24 - 31 mEq/L | [facility] | | | | | | [facility] | | | | | | MEDICAL | | | | | | CENTER - | | | | | | LABORATORY | | + + + + + + | Anion Gap | 9.0 | 6.0 - 17.0 | [facility] | | | | | | [facility] | | | | [...] + | [facility] | [address] | [place] | [phone] | | [facility] | | [address] | | | - LABORATORY | | | | + + + + + | [facility] | [address] | [place], [place] | | | [facility] | | [address] | | | - LABORATORY | | | | + + + + + Lipase (07/31/2010 4:11 AM PDT) + +-------+ + + + | Component | Value | Ref Range | Performed | Pathologist | | | | | At | Signature | + +-------+ + + + | Lipase | 21 | 0 - 60 U/L | [facility] | | | | | | [facility] | | | | | | [...] + | [facility] | [address] | [place], [place] | [phone] | | [facility] | | [address] | | | - LABORATORY | | | | + + + + + | [facility] | [address] | [place], [place] | | | [facility] | | [address] | | | - LABORATORY | | | | + + + + + CBC with Differential (07/31/2010 4:11 AM PDT) + +-------+ + + + | Component | Value | Ref Range | Performed | Pathologist | | | | | At | Signature | + +-------+ + + + | WBC | 7.1 | 4.0 - 11.0 K/uL | [facility] | | | | | | [facility] | | | | | | MEDICAL | | | | | | CENTER - | | | | | | LABORATORY | | + +-------+ + + + | RBC | 4.30 | 3.70 - 5.20 | [facility] | | | | | M/uL | [facility] | | | | | | [facility] | | | | | | CENTER - | | | | | | LABORATORY | | + +-------+ + + + | Hemoglobin | 13.4 | 11.5 - 16.0 | [facility] | | | | | gm/dL | [facility] | | | | | | MEDICAL | | | | | | CENTER - | | | | | | LABORATORY | | + +-------+ + + + | Hematocrit | 39.3 | 34.0 - 47.0 % | [facility] | | | | | | [facility] | | | | | | MEDICAL | | | | | | CENTER - | | | | | | LABORATORY | | + +-------+ + + + | MCV | 91.4 | 83.0 - 101.0 fL | [facility] | | | | | | [facility] | | | | | | MEDICAL | | | | | | CENTER - | | | | | | LABORATORY | | + +-------+ + + + | MCH | 31.1 | 28.0 - 35.0 pg | [facility] | | | | | | [facility] | | | | | | MEDICAL | | | | | | CENTER - | | | | | | LABORATORY | | + +-------+ + + + | MCHC | 34.0 | 32.0 - 36.0 | [facility] | | | | | g/dL | [facility] | | | | | | MEDICAL | | | | | | CENTER - | | | | | | LABORATORY | | + +-------+ + + + | RDW-CV | 13.5 | <15.0 % | [facility] | | | | | | [facility] | | | | | | MEDICAL | | | | | | CENTER - | | | | | | LABORATORY | | + +-------+ + + + | Platelet | 319 | 140 - 440 K/uL | [facility] | | | Count | | | [facility] | | | | | | MEDICAL | | | | | | CENTER - | | | | | | LABORATORY | | + +-------+ + + + | % | 50.3 | 45 - 75 % | [facility] | | | Neutrophils | | | [facility] | | | | | | MEDICAL | | | | | | CENTER - | | | | | | LABORATORY | | + +-------+ + + + | % | 39.1 | 20 - 45 % | [facility] | | | Lymphocytes | | | [facility] | | | | | | MEDICAL | | | | | | CENTER - | | | | | | LABORATORY | | + +-------+ + + + | % Monocytes | 8.3 | 4 - 12 % | [facility] | | | | | | [facility] | | | | | | MEDICAL | | | | | | CENTER - | | | | | | LABORATORY | | + +-------+ + + + | % | 1.8 | 0 - 5 % | [facility] | | | Eosinophils | | | [facility] | | | | | | MEDICAL | | | | | | CENTER - | | | | | | LABORATORY | | + +-------+ + + + | % Basophils | 0.5 | 0 - 1 % | [facility] | | | | | | [facility] | | | | | | MEDICAL | | | | | | CENTER - | | | | | | LABORATORY | | + +-------+ + + + | Absolute | 3.6 | 1.5 - 6.6 K/uL | [facility] | | | Neutrophils | | | [facility] | | | | | | MEDICAL | | | | | | CENTER - | | | | | | LABORATORY | | + +-------+ + + + | Absolute | 2.8 | 0.6 - 3.2 K/uL | [facility] | | | Lymphocytes | | | [facility] | | | | | | MEDICAL | | | | | | CENTER - | | | | | | LABORATORY | | + +-------+ + + + | Absolute | 0.6 | 0.0 - 1.0 K/uL | [facility] | | | Monocytes | | | [facility] | | | | | | MEDICAL | | | | | | CENTER - | | | | | | LABORATORY | | + +-------+ + + + | Absolute | 0.1 | 0.0 - 0.4 K/uL | [facility] | | | Eosinophils | | | [facility] | | | | | | MEDICAL | | | | | | CENTER - | | | | | | LABORATORY | | + +-------+ + + + | Absolute | 0.0 | 0.0 - 0.1 K/uL | [facility] [...] | + + + + + | [facility] | [address] | [place], [place] | [phone] | | [facility] | | [address] | | | - LABORATORY | | | | + + + + + | [facility] | [address] | [place], [place] | | | [facility] | | [address] | | | - LABORATORY | | | | + + + + + CT Abdomen Pelvis w Contrast (07/31/2010 2:22 AM PDT) + + | Specimen | + + | | + + + + + | Narrative | Performed At | + + + | [facility] | [facility] | | [address] [facility] | [facility] | | CT ABDOMEN AND PELVIS WITH | DIAG IMG | | CONTRAST, 07/31/2010 CLINICAL HISTORY: DYSURIA. COMPARISON: | | | 03/23/2010 TECHNIQUE: Imaging is performed from the lung bases | | | to the pubic symphysis following the uneventful intravenous | | | administration of 100 mL of Isovue 370. FINDINGS: LOWER LUNGS: | | | Linear opacity in the right lung base is likely atelectasis. | | | There is a persistent matti ear opacity in the left lung base that is | | | likely scarring. There are no pleural effusions. | | | ABDOMEN/PELVIS: Diverticular disease with surrounding inflammation | | | in the sigmoid consistent with di verticulitis. This closely | | | approximates the lateral bladder wall with some questionable | | | associated t hickening. The bladder is, however, incompletely | | | distended. The liver is unremarkable. There are small | | | hypodensities in both kidneys, unchanged. These are too small to | | | characterize. There are no adrenal masses. The spleen appears | | | normal. The pancreas appear s normal. The gallbladder is | | | nondistended. There is no evidence for gastrointestinal tract | | | obstruct ion. There is a moderate amount of fluid-like material in | | | the right and transverse colon. There is no free fluid. There is | | | no free air. Osseous structures are unremarkable. The uterus | | | is surgically absent. Ovaries are not clearly identified. | | | IMPRESSION: 1. FINDINGS CONSISTENT WITH SIGMOID DIVERTICULITIS, | | | POSSIBLY WITH ASSOCIATED INFLAMMATION OF THE URIN GRICELDA BLADDER | | | ACCOUNTING FOR PATIENT'S SYMPTOMS. 2. MODERATE AMOUNT OF FLUID IN | | | THE COLON WHICH CAN BE SEEN IN THE SETTING OF GASTROENTERITIS. | | | NOTABLY , THE RIGHT COLON IS SLIGHTLY INTERPOSED BETWEEN THE LIVER | | | AND DIAPHRAGM. 3. SMALL HYPODENSITIES IN THE RIGHT AND LEFT | | | KIDNEYS, UNCHANGED. NOTE: Preliminary report was provided by | | | Fitz on 07/31/2010 at 5:59 a.m. Central Time. Dictated | | | Date/Time: 07/31/2010 08:28 Transcribed Date/Time: 07/31/2010 | | | 10:29 Parachute Rigger: <Electronically Signed by Lencho Reynolds | | | MD Shira> 07/31/10 1718 | | + + + + + | Procedure Note | + + | Roger Mcbride Conversion - 04/02/2013 3:05 PM [facility] | | Diagnostic Imaging Department [address] [facility] | | CT ABDOMEN AND PELVIS WITH CONTRAST, 07/31/2010 CLINICAL | | HISTORY: DYSURIA. COMPARISON: 03/23/2010 TECHNIQUE: Imaging is performed from the | | lung bases to the pubic symphysis following the uneventful intravenous administration of | | 100 mL of Isovue 370. FINDINGS: LOWER LUNGS: Linear opacity in the right lung base is | | likely atelectasis. There is a persistent linear opacity in the left lung base that is | | likely scarring. There are no pleural effusions. ABDOMEN/PELVIS: Diverticular disease | | with surrounding inflammation in the sigmoid consistent with diverticulitis. This | | closely approximates the lateral bladder wall with some questionable associated | | thickening. The bladder is, however, incompletely distended. The liver is unremarkable. | | There are small hypodensities in both kidneys, unchanged. These are too small to | | characterize. There are no adrenal masses. The spleen appears normal. The pancreas | | appears normal. The gallbladder is nondistended. There is no evidence for | | gastrointestinal tract obstruction. There is a moderate amount of fluid-like material | | in the right and transverse colon. There is no free fluid. There is no free air. | | Osseous structures are unremarkable. The uterus is surgically absent. Ovaries are not | | clearly identified. IMPRESSION: 1. FINDINGS CONSISTENT WITH SIGMOID DIVERTICULITIS, | | POSSIBLY WITH ASSOCIATED INFLAMMATION OF THE URINARY BLADDER ACCOUNTING FOR PATIENT'S | | SYMPTOMS. 2. MODERATE AMOUNT OF FLUID IN THE COLON WHICH CAN BE SEEN IN THE SETTING OF | | GASTROENTERITIS. NOTABLY, THE RIGHT COLON IS SLIGHTLY INTERPOSED BETWEEN THE LIVER AND | | DIAPHRAGM. 3. SMALL HYPODENSITIES IN THE RIGHT AND LEFT KIDNEYS, UNCHANGED. NOTE: | | Preliminary report was provided by Dr. Byrnes on 07/31/2010 at 5:59 a.m. Central Time. | | Dictated Date/Time: 07/31/2010 08:28Transcribed Date/Time: 07/31/2010 | | 10:29Transcriptionist: <Electronically Signed by Lencho Silva MD> 07/31/10 | | 1718 | |ion. There is a moderate amount of fluid-like material in the right and transverse colon. There is | |no free fluid. There is no free air. | | | |Osseous structures are unremarkable. | | | |The uterus is surgically absent. Ovaries are not clearly identified. | | | |IMPRESSION: | |1. FINDINGS CONSISTENT WITH SIGMOID DIVERTICULITIS, POSSIBLY WITH ASSOCIATED INFLAMMATION O F THE URIN | |GRICELDA BLADDER ACCOUNTING FOR PATIENT'S SYMPTOMS. | | | |2. MODERATE AMOUNT OF FLUID IN THE COLON WHICH CAN BE SEEN IN THE SETTING OF GASTROENTERITI S. NOTABLY | |, THE RIGHT COLON IS SLIGHTLY INTERPOSED BETWEEN THE LIVER AND DIAPHRAGM. | | | |3. SMALL HYPODENSITIES IN THE RIGHT AND LEFT KIDNEYS, UNCHANGED. | | | |NOTE: Preliminary report was provided by Dr. Byrnes on 07/31/2010 at 5:59 a.m. [place] Juanjose marcus | | | |Dictated Date/Time: 07/31/2010 08:28 | |Transcribed Date/Time: 07/31/2010 10:29 | |Parachute Rigger: | |<Electronically Signed by Lencho Silva MD> 07/31/10 1718 | + + + +---------+ + + | Performing | Address | City/State/Zipcode | Phone Number | | Organization | | | | + +---------+ + + | [place] | | | | | [facility] | | | | + +---------+ + + documented in this encounter Visit Diagnoses Not on filedocumented in this encounter"
--- OUTSIDE RECORDS SUMMARY | ~2019-01-15 | XMS | Encounter Summary ---
Demographics + + + | Address | [address] | | | [place] [address] | + + + | Home Phone [...] Team Providers + +------+ + | Care Lunch Counter Manager Name | Role | Phone | + +------+ + | Juan Cherry DO | PCP | | + +------+ + Reason for Visit + + + | Reason | Comments | + + + | Chest Injury | exam 5/ sternum pain DOI: 04/05/13 | + + + Encounter Details +--------+---------+ + + + | Date | Type | Department | Care Team | Description | +--------+---------+ + + + | 04/06/ | Office | [facility] | Brian Miranda | Sprain of chest wall | | 2014 | Visit | OCCUPATIONAL HEALTH | MD [phone] | (Primary Dx); Place | | | | [place] [address] | [facility] | of occurrence, | | | | [address] [facility] | [place] [address] | industrial places | | | | [place], [place] | [phone] | and premises | | | | [address] | | | | | | [phone] | | | +--------+---------+ + + + [...] + + + | Blood Pressure | 112/70 | 04/06/2013 2:50 PM | | | | | PST | | + + + + + | Pulse | 78 | 04/06/2013 2:50 PM | | | | | PST | | + + + + + | Temperature | 36.6 C (97.8 F) | 04/06/2013 2:50 PM | | | | | PST | | + + + + + | Respiratory Rate | 16 | 04/06/2013 2:50 PM | | | | | PST | | + + + + + | Oxygen Saturation | 96% | 04/06/2013 2:50 PM | | | | | PST | | + + + + + | Inhaled Oxygen | - | - | | | Concentration | | | | + + + + + | Weight | 66.7 kg (147 lb) | 04/06/2013 2:50 PM | | | | | PST | | + + + + + | Height | 157.5 cm (5' 2") | 04/06/2013 2:50 PM | | | | | PST | | + + + + + | Body Mass Index | 26.89 | 04/06/2013 2:50 PM | | | | | PST | | + + + + + documented in this encounter Progress Notes Brian Miranda MD - 04/06/2013 5:30 PM PSTSee dictation [id number] lisha d by Brian Miranda MD at 04/06/2013 5:30 PM Brian Avendano MD - 04/06/19 14 12:00 AM [facility] OCCUPATIONAL MEDICINE [address] [place] [address] [place], [place] [address] FAX: [phone] OFFICE VISIT CLAIM NO: [id number] DATE OF INJURY: 04/05/2013 EMPLOYER: Jelani Alcantara GUARANTOR: Jelani Rojas COMPLAINT: Chest wall sprain, unscheduled visit for followup evaluation and ongoing care. S: The injured worker is 48 years of age who presented without a scheduled appointment at [facility] urgent care/Occ/Med for an evaluation. 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 It was quite p ainful. She was unable to continue to work. She was evaluated in the emergency department a [facility] and that report is available for review. She was advised to return to a modified du ty position today, but when she did so, her employers indicated that she was in so much dis comfort they were recommending she come for an evaluation. She states that she is having pr chitra significant pain. Movement and deep breathing in particular increase her pain. She rep orts no other injuries as a consequence of this event. She denies any prior history of ever having any injuries or problems in this area. She states that she was prescribed hydrocodo ne from the emergency department and that does not seem to be doing anything to help with h er pain. I have reviewed her past medical history. She is a smoker and she has been diagnos ed with emphysema. Surgeries have included a hysterectomy, knee surgery and hernia repair. She has been diagnosed with fibromyalgia and osteoarthritis. REVIEW OF SYSTEMS It is as per HPI. She denies fevers, chills, night sweats, unexplained weight losses or kno wn personal diagnosis of cancer. ALLERGIES: INCLUDE 1. ERYTHROMYCIN. 2. NSAIDS. 3. TETRACYCLINE. 4. MEPERIDINE. 5. ONIONS. MEDICATIONS: Include 1. Albuterol. 2. Tylenol. 3. Cymbalta. 4. Advair. 5. Neurontin. 6. Ipratropium. 7. Levothyroxine. 8. Omeprazole. 9. Prednisone. 10. Maxalt. 11. Spiriva. 12. Tramadol. 13. Geodon. OBJECTIVE VITAL SIGNS: Unremarkable. GENERAL: No acute distress. She was polite, cooperative, deemed to be a reliable historian. There were no elements of pain behavior, embellishment of symptoms detected on her evaluat ion. SKIN AND INTEGUMENT: Warm and dry. NECK: Supple. BACK: Normal to inspection. No deformity. No point tenderness. No muscle spasticity. CHEST WALL: Normal to inspection. She was exquisitely tender over multiple areas over the anteri or sternal area and parasternal areas. It was difficult to perform the exam because of her apprehension for increased pain and then the pain response when we were able to perform lig ht palpation. LUNGS: Breath sounds were slightly shallow secondary to increased pain with chest wall exc ursion. Lungs were clear on auscultation. CARDIAC: Regular rhythm. No click, murmur or rub. No evidence of peripheral circulatory co mpromise. ABDOMEN: Soft, nontender without masses or organomegaly. Bowel sounds were normal. No audib le bruits. IMAGING/DIAGNOSTICS: None indicated for purposes of our evaluation this date. PENDING INTERVENTIONS: Continued conservative measures as outlined below. A: CHEST/PARASTERNAL SPRAIN. P: I have indicated to the injured worker my diagnostic impression, examination findings an d treatment recommendations. These are going to include activity modification, exclusive us e of cold packs over the injured areas for a period of several days and then using cold and heat interchangeably and intermittently. We have talked about continuing with her current medications and I have asked her to stop the hydrocodone and provided her a prescription fo r oxycodone 5 mg/325 to be used on a p.r.n. basis and she is well aware of the possible sed ative effects. She is going to be eligible for modified duty and we will see her back in a 1 week period of time to assess clinical response to initial conservative treatment. She vo iced understanding and agreement. E: Modified duty. R: Restrictions are no exertional lifting, pushing or pulling. No transfers. Impairment un determined based on current objective findings. It is not felt to be a likely consequence fo r this injury, but she is not yet MMI status. Her surg She has been GChris Miranda MD / AP JOB #: [id number] signed by Brian Miranda MD at 04/07/2013 10:26 AM PSTd ocumented in this encounter Plan of Treatment +--------+---------+ + + + | Date | Type | Specialty | Care Team | Description | +--------+---------+ + + + | 03/01/ | Office | Pulmonology | Mukul Clark MD | | | 2019 | Visit | | [address] | | | | | | [place] | | | | | | [address] | | | | | | | | +--------+---------+ + + + | 11/24/ | Office | Cardiology | [place], | | | 2019 | Visit | | SINDHU Erickson [address] | | | | | | [place], | | | | | | [place] [address] | | | | | | [phone] | | | | | | | | +--------+---------+ + + + documented as of this encounter Visit Diagnoses + + | Diagnosis | + + | Sprain of chest wall - Primary Other specified sites of sprains and strains | + + | Place of occurrence, industrial places and premises | + + documented in this encounter
--- OUTSIDE RECORDS SUMMARY | ~2019-01-15 | XMS | Encounter Summary ---
Demographics + + + | Address | [address] | | | [place] [address] | + + + | Home Phone [...] Team Providers + +------+ + | Care Bottle Feeder Name | Role | Phone | [...] Tachycardia | MD Jared | [address] | | | | | Procedures | [address] | [place], | | | | | ECHO | [address] | [place] | | | | | Complete | [place], | [address] | | | | | | [place] [address] | Phone: | | | | | | Phone: | [phone] | | | | | | [phone] | Fax: | | | | | | Fax: | [phone] | | | | | | [phone] | | +--------+--------+ + + + + [...] | | unspecified | [place] | [address] | | | | | HIGH PULSE | [place], [place] | [place], | | | | | - [address]ND DX | [address] | [place] [address] | | | | | Procedures | Phone: | Phone: | | | | | [place] OFFICE | [phone] | [phone] | | | | | OUTPATIENT | Fax: | Fax: | | | | | VISIT 25 | [phone] | [phone] | | | | | MINUTES | [...] CARDIOLOGY [address] | MD [address] | Dx) | | | | [address] [place], | [place], | | | | | [place] [address] | [place] [address] | | | | | [phone] | [phone] | | | | | | | [...] tachycardia. 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 to retire [...] sleep apnea COPD (chronic obstructive pulmonary disease) ([facility]) Healthcare maintenance Preventative health care GARRY (obstructive sleep apnea) Multiple personality disorder GERD (gastroesophageal reflux disease) Diverticulosis Insomnia Sprain of chest wall Benign neoplasm of pituitary gland and craniopharyngeal duct (pouch) ([facility]) Status post total hysterectomy Irritable colon Hypoxemia ([facility]) Allergic rhinitis Tachycardia MEDICAL, SURGICAL, AND PERSONAL HISTORY Past Surgical History Procedure Date Hammertoe repair right sided Hiatal hernia repair Hiatal hernia Kirk and bso Ovarian cysts, not cancer Colonoscopy 03/2010 Colonoscopy [facility] Family History Problem Relation Age of Onset [...] 1 Years of Education: 13 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 Respiratory Therapy Supplies [facility] Incentive spirometer. Please provide instructions in use. Dx: 848.8 MADELEINE: 3 months 1 each 99 Respiratory Therapy Supplies [facility] Please provide patient with necessary CPAP supplies ( she did not specify, okay to send order as appropriate) Diagnosis Code(s)327.23 . Length of Need 99 months. Please send order to [facility]. 1 each 0 Respiratory Therapy Supplies [facility] Change CPAP back to 11-14 cm H2O. All necessary suppl ies. No oxygen bleed in. Diagnosis Code(s)327.23. Length of Need: Lifetime. Please send orde r to [facility]. This is not a new [...] PLT 343 07/14/2013 I reviewed records from [facility] for office visit on 08/02/13. ASSESSMENT: 1. [...] She is in a class II of [place] [employer] functiona l class. There is [...] made to ensure accuracy; however, inadvertent computerized riveter helper errors may be pre sent. Electronically signed by: Jared Mcdonough MD [facility] 08/12/2013 9:31 documented in this encounter Plan [...] [place] | | | | | | [id number] | | | | | | | | +--------+---------+ + + + | 11/24/ | Office | Cardiology | [place], | | | 2019 | Visit | | SINDHU Erickson [address] | | | | | | [place], | | | | | | [place] [address] | | | | | | [phone] | | | | | | | [...]
--- OUTSIDE RECORDS SUMMARY | ~2019-01-15 | XMS | Encounter Summary ---
Demographics + + + | Address | [address] | | | [place] [address] | + + + | Home Phone [...] Team Providers + +------+ + | Care Pluck Trimmer Name | Role | Phone | [...] | | | | | | level ([facility]) | [place] | | | | | | Procedures | [place], [place] | | | | | | MRI Brain w | [address] | | | | | | wo Contrast | Phone: | | | | | | | [phone] | | | | | | | Fax: | | | | | | | [phone] | | +--------+--------+ + + + + [...] | | | | | | level (HCC) | [place] | | | | | | Procedures | [place], [place] | | | | | | MRI Brain w | [address] | | | | | | wo Contrast | Phone: | | | | | | | [phone] | | | | | | | Fax: | | | | | | | [phone] | | +--------+--------+ + + + + Encounter Details +--------+ + + + + | Date | Type | Department | Care Team | Description | +--------+ + + + + | 08/09/ | Hospital | [facility] | Daya Decker, | Aleksandr prolactin | | 2016 | Encounter | MED CTR MRI [address] | MD [address] | level ([facility]) | | | | [place], | [place] | | | | | [place] [address] | [address] | | | | | [phone] | [phone] | | | | | | | [...] | | | | | order to [facility]. | | | | | + [...] | | | send order to [facility] | | | | | | | [...] [place] | | | | | | [address] | | | | | | | | +--------+---------+ + + + | 11/24/ | Office | Cardiology | [place], | | | 2019 | Visit | | SINDHU Erickson [address] | | | | | | [place], | | | | | | [place] [address] | | | | | | [phone] | | | | | | | [...] | e | 9:33 AM | level (HCC) | procedure are in the | [...] | | | | mL/min/1.73m2 | [facility] | | | [facility] | | | MEDICAL | | | [...] [address] | [place] | [phone] | | [facility] | | [address] | | | - LABORATORY | | [...] and signal | | characteristics. No abnormal [id number], contrast enhancement, susceptibility | | change, or [...] | + + | Elevated prolactin level (HCC) Other and unspecified anterior pituitary hyperfunction | [...] | | | | PRN, Other, Starting [facility] 08/10/15 | | AM PDT | | | | | at 0949, For 1 dose, MRI | | | | | | + +--------+ +--------+------+------+ +---+---+ | | | +---+---+ documented in this encounter"
--- OUTSIDE RECORDS SUMMARY | ~2019-01-15 | XMS | Encounter Summary ---
Demographics + + + | Address | [address] | | | [place] [address] | + + + | Home Phone | | + + + | Preferred Language | Unknown | + + + | Marital Status | Single | + + + | Zoroastrianism Affiliation | 1041 | + + + [...] Team Providers + +------+ + | Care Interior Design Director Name | Role | Phone | + [...] Description | +--------+--------+ + + + | 05/20/ | Refill | [facility] [place] | [place], | Medication Refill | | 2013 | | PULMONARY [address] | Loreta Alonso MD | | | | | [place], | | | | | | [place] [address] | | | | | | [phone] | | | +--------+--------+ + + + [...] [place] | | | | | | [address] | | | | | | | | +--------+---------+ + + + | 11/24/ | Office | Cardiology | [place], | | | 2019 | Visit | | SINDHU Erickson [address] | | | | | | [place], | | | | | | [place] [address] | | | | | | [phone] | | | | | | | | +--------+---------+ + + + documented as of this encounter Visit Diagnoses Not on filedocumented in this encounter"
--- OUTSIDE RECORDS SUMMARY | ~2019-01-15 | XMS | Encounter Summary ---
Demographics + + + | Address | [address] | | | [place] [address] | + + + | Home Phone [...] + + + | Author | [facility] | | | and [place] | + + + | Organization | [facility] [...] Team Providers + +------+ + | Care Mounter Brass Wind Instruments Name | Role | Phone | + [...] Description | +--------+--------+ + + + | 01/11/ | Refill | [facility] [place] | Kevin Sandoval, | Medication Refill | | 2014 | | PULMONARY [address] | MD [address] | | | | | [place], | [place] | | | | | [place] [address] | [address] | | | | | [phone] | | | +--------+--------+ + + + [...] [place] | | | | | | [address] | | | | | | | | +--------+---------+ + + + | 11/24/ | Office | Cardiology | [place], | | | 2019 | Visit | | SINDHU Erickson [address] | | | | | | [place], | | | | | | [place] [address] | | | | | | [phone] | | | | | | | | +--------+---------+ + + + documented as of this encounter Visit Diagnoses Not on filedocumented in this encounter"
--- OUTSIDE RECORDS SUMMARY | ~2019-01-15 | XMS | Encounter Summary ---
Demographics + + + | Address | [address] | | | [place] [address] | + + + | Home Phone [...] + | Organization | [facility] | | [...] Team Providers + +------+ + | Care Wildlife Refuge Manager Name | Role | Phone | + +------+ + | Juan Cherry DO | PCP | | + +------+ + Reason for Visit + + + | Reason | Comments | + + + | Post-op Problem | | + + + Encounter Details +--------+ + + + + | Date | Type | Department | Care Team | Description | +--------+ + + + + | 11/22/ | Emergency | [facility] | Bishop Alatorre, | Acute post-operative | | 2016 | | MED CTR EMERGENCY | [place] [address] | pain (Primary Dx); | | | | CENTER [address] | [place] | Bladder pain | | | | [place] | [address] | | | | | [address] | | | | | | [phone] | | | +--------+ + + + [...] + + + | Blood Pressure | 108/57 | 11/23/2015 7:05 PM | | | | | PDT | | + + + + + | Pulse | 68 | 11/23/2015 7:05 PM | | | | | PDT | | + + + + + | Temperature | 36.9 C (98.5 F) | 11/23/2015 7:05 PM | | | | | PDT | | + + + + + | Respiratory Rate | 16 | 11/23/2015 7:05 PM | | | | | PDT | | + + + + + | Oxygen Saturation | 92% | 11/23/2015 7:05 PM | | | | | PDT | | + + + + + | Inhaled Oxygen | - | - | | | Concentration | | | | + + + + + | Weight | 77.6 kg (171 lb) | 11/23/2015 7:05 PM | | | | | PDT | | + + + + + | Height | 157.5 cm (5' 2") | 11/23/2015 7:05 PM | | | | | PDT | | + + + + + | Body Mass Index | 31.28 | 11/23/2015 7:05 PM | | | | | PDT [...] sent through Care Everywhere.PAIN MANAGEMENT AFTER SURGERY (DANISH)documented in this encounter Medications at Time of [...] | | | | | order to [facility]. | | | | | + + [...] | | | | | ([facility]) | | | | | [...] | 0 | 10/13/19 | | | [id number]-DWPV-[id number] | mouth as needed. | | | 16 | 7 | | -Cod [id number] MG | | | | | | [...] | | | | | ([facility]) | | | | | [...] | UNABLE TO FIND | Med Name: DELMY Use | | 0 | | | [...] [place] | | | | | | [address] | | | | | | | | +--------+---------+ + + + | 11/24/ | Office | Cardiology | [place] | | | 2019 | Visit | | SINDHU Erickson [address] | | | | | | [place], | | | | | | [place] [address] | | | | | | [phone] | | | | | | | | +--------+---------+ + + + + +------+--------+ + + | Name | Type | Priori | Associated Diagnoses | Date/Time | | | | ty | | | + +------+--------+ + + | ED INFORMATION | BALWINDER | Routin | | 11/23/2015 6:37 PM | | EXCHANGE | | e | | PDT | + +------+--------+ + + documented as of this encounter Visit Diagnoses + + | Diagnosis | + + | Acute post-operative pain - Primary | + + | Bladder pain Other symptoms involving urinary system | + + documented in this encounter Administered Medications + + + + +------+------+ | Medication Order | MAR | Action | Dose | Rate | Site | | | Action | Date | | | | + + + + +------+------+ | oxyCODONE-acetaminophen | Dispense | 11/23/19 | 1 tablet | | | | (PERCOCET) 5-325 mg per tablet | to Home | 16 7:46 | | | | | (ED prepack) 1 tablet 1 tablet, | | PM PDT | | | | | Oral, EVERY 6 HOURS PRN, Pain, | | | | | | | Starting [facility] 11/23/15 at 1927 | | | | | | + + + + +------+------+ +---+---+ | | | +---+---+ documented in this encounter
--- OUTSIDE RECORDS SUMMARY | ~2019-01-15 | XMS | Encounter Summary ---
Demographics + + + | Address | [address] | | | [place] [address] | + + + | Home Phone [...] Team Providers + +------+ + | Care Evaluation Analyst Name | Role | Phone | [...] | +--------+ + + + + | 09/04/ | Off-Site | [facility] | [place], | Paroxysmal atrial | | 2016 | Visit | CARDIOLOGY [address] | SINDHU Erickson [address] | tachycardia (HCC) | | | | [place], | [place], | (Primary Dx); Chest | | | | [place] [address] | [place] [address] | pain, unspecified | | | | [phone] | [phone] | type | | | | | | | [...] + + + | Blood Pressure | 110/60 | 09/05/2015 7:46 AM | | | | | PDT | | + + + + + | Pulse | 52 | 09/05/2015 7:46 AM | | | | | PDT | | + + + + + | Temperature | - | - | | + + + + + | Respiratory Rate | 16 | 09/05/2015 7:46 AM | | | | | PDT | | + + + + + | Oxygen Saturation | - | - | | + + + + + | Inhaled Oxygen | - | - | | | Concentration | | | | + + + + + | Weight | 79.4 kg (175 lb) | 09/05/2015 7:46 AM | | | | | PDT | | + + + + + | Height | 157.5 cm (5' 2") | 09/05/2015 7:46 AM | | | | | PDT | | + + + + + | Body Mass Index | 32.01 | 09/05/2015 7:46 AM | | | | | PDT [...] encounter Progress Notes Georgina Elizabeth ARNP - 09/05/2015 7:31 AM PDTFormatting of this note might be different f rom the original. PATIENT NAME: Rosraio Malik : 1965: AGE: 50 y.o. PRIMARY CARE: Juan Cherry DO OUTPATIENT FOLLOW UP VISIT Date of Service: 09/05/2015 HISTORY OF PRESENT ILLNESS: Rosario Malik is a 50 y.o. female with a history of non-cardiac chest pain, inapprop riate atrial tachycardia, paroxysmal atrial tachycardia with palpitations, emphysema, hypoth yroidism obstructive sleep apnea and nocturnal hypoxemia and bipolar disorder. She is being seen today for follow up chest pain and arrhythmia. She was last seen 02/02/2015 at which time she was counseled on improving lifestyle habits and increase physical activity, she was to start cardio pulmonary rehabilitation and follow- up in 6 months. Since that time, patient has noticed that her fatigue has gotten worse. She has noticed that her heart rate continues to be high at some point in the day and then lowe red others. She also states that her angina has improved and she is not having near as many episodes of chest pain as she was before. Her shortness of breath continues to be close to the same. She is using oxygen 24 hours a day. She has not been exercising because she kaylee ot tolerate activity. She has been doing some work in her garden and does as much as she's been able to do. Patient also states that she has been recently diagnosed with adrenal insu fficiency. She denies any leg swelling she has some hand swelling on occasions. MEDICAL, SURGICAL, AND PERSONAL HISTORY Past Medical, [...] 4 hours as needed. 360 mL 5 cetirizine (ZYRTEC) 10 mg tablet Take 10 [...] 40 mg by mouth 2 times daily. oxybutynin (DITROPAN) 5 mg tablet Take 1 tablet by mouth 2 times daily for 30 days. 60 tablet 3 oxygen Inhale 2 L into the lungs [...] takes this da rigoberto Respiratory Therapy Supplies [facility] Please provide patient with necessary CPAP supplies ( she did not specify, okay to send order as appropriate) Diagnosis Code(s)327.23 . Length of Need 99 months. Please send order to [facility]. 1 each 0 Respiratory Therapy Supplies [facility] Change CPAP back to 11-14 cm H2O. All necessary suppl ies. No oxygen bleed in. Diagnosis Code(s)327.23. Length of Need: Lifetime. Please send orde r to [facility]. This is not a new order, just [...] this visit. ALLERGIES Allergies Allergen Reactions Onion Anaphylaxis Onion Extract Throat Swells Doxycycline Hives Erythromycin Base Other (See Comments) Bloating and swelling, lips swell Macrolides And Ketolides Hives Nsaids Hives Pork Allergy Meperidine Panic attacks ROS Review of Systems Constitutional: Positive for malaise/fatigue. Respiratory: Positive for shortness of breath. Cardiovascular: Negative for chest pain, palpitations and leg swelling. Neurological: Positive for dizziness and weakness. Lightheaded = No OBJECTIVE: PHYSICAL EXAM BP 110/60 mmHg | Pulse 52 | Resp 16 | Ht 1.575 m (5' 2") | Wt 79.379 kg (175 lb) | BMI 32.0 0 kg/m2 Physical Exam Constitutional: She appears well-developed and well-nourished. No distress. Female individual in no acute distress Neck: Normal carotid pulses, no hepatojugular reflux and no JVD present. Carotid bruit is n ot present. Cardiovascular: Regular rhythm, S1 normal, S2 normal, normal heart sounds, intact distal pu lses and normal pulses. Bradycardia present. PMI is not displaced. Exam reveals no gallop , no S3, no S4 and no friction [...] not e xhibit a depressed mood. ECG: I personally independently reviewed ECG tracing during this visit (interpreted and jennifer led by another provider- Dr. Mcdonough) from 09/05/2015 shows a sinus bradycardia with a hea rt rate of 48 bpm with no acute changes. LAB RESULTS reviewed during visit today primarily from [facility]: LIPID No results found for: CHOL, TRIG, HDL, LDL, CHOLHDL, LDLEX, HDLEX, TRIGEX, CHOLEX CHEMISTRY Lab Results Component Value Date GLU 146* 08/04/2015 GLUEX 85 07/03/2015 NA 136 08/04/2015 NAEX 141 07/03/2015 K 2.8* 08/04/2015 KEX 4.5 07/03/2015 CL 95* 08/04/2015 CLEX 103 07/03/2015 CO2 28 08/04/2015 CO2EX 28 07/03/2015 CALCIUM 10.5 08/04/2015 ALKPHOS 72 08/04/2015 AST 17 08/04/2015 ASTEX 23 07/03/2015 ALT 11 08/04/2015 ALTEX 16 07/03/2015 BILITOT 0.5 08/04/2015 CREA 1.44* 08/04/2015 BUN 22* 08/04/2015 EGFR >60 03/22/2013 EGFREX >60 07/03/2015 CREEX 0.9 07/03/2015 HEMATOLOGY Lab Results Component Value Date WBC 12.3* 08/04/2015 WBCEX 8.1 07/11/2014 HGB 13.6 08/04/2015 HGBEX 13.7 07/11/2014 HCT 39.8 08/04/2015 HCTEX 40.5 07/11/2014 PLT 431 08/04/2015 PLTEX 370 07/11/2014 I reviewed records from PCP for office visit on 07/03/2015 regarding multiple medical prob lems including Cramping and muscle spasms at which time She was order to get labs drawn. Above data and testing is reviewed this visit; testing below is historical data unless othe rwise specified. ASSESSMENT: 1. Non-cardiac chest pain: A. She has had complaint of sharp chest pain that is aggravated when she takes deep breath and sits up. Symptom is better when she lays down. She also complained of the trouble josey athing on exertion. She was seen at the ED of [facility] 3 weeks ago and again 1 [...] contoured coronar y arteries, LVEF 60%. D. Today, patient states that her chest pain has improved and is not near as often or as intense as it used to be. Her dyspnea remains stable and she continues to use her oxygen at all times. She is in a class II of [place] [employer] Association functional class. There is n o signs and symptoms of overt congestive heart failure. There are no fluid retention on ph ysical examination. 2. Palpitation secondary to the paroxysmal [...] and ventricular function don e at the [facility]. LVEF 78%. C. Holter Monitor 08/16/13 [...] medications, and it was not started. E. Today, patient is noticed to be bradycardic with a heart rate of 48 bpm on EKG and on physical examination. Patient has had increase in tiredness and fatigue but no syncopal or near-syncopal episodes. We will evaluate Holter monitor to determine presence of arrhythmia and type of arrhythmia. 2. Emphysema/COPD: A. She is on oxygen. Seen by Dr. Sandoval in pulmonology. She would benefit from going to cardiopulmonary rehab. 3. Hypothyroidism 4. Obstructive sleep apnea and nocturnal hypoxemia A. She is not using CPAP machine and instead is using nighttime oxygen supplement while wo rking on evaluating to start BiPAP. PLAN: 1. Schedule 48 hour Holter monitor to evaluate arrhythmia. 2. She will follow up in 2-4 weeks, or sooner with concerns. Portions of this chart may have been created with [employer] voice recognition software. Occasi onal wrong-word or [...] [place], | | | | | | [place] [address] | | | | | | [phone] | | | | | | | | +--------+---------+ + + + + +------+--------+ + + | Name | Type | Priori | Associated Diagnoses | Order Schedule | | | | ty | | | + +------+--------+ + + | ECG 12 lead | ECG | Routin | Paroxysmal atrial | Ordered: 09/05/2015 | | | | e | tachycardia (HCC) | | + +------+--------+ + + | Holter monitor - 48 | ECG | Routin | Paroxysmal atrial | Expected: 09/05/2015 | | hour | | e | tachycardia (HCC) | (Approximate), | | | | | | Expires: 09/05/2016 | + +------+--------+ + + documented as of this encounter Procedures + +--------+ + + + | Procedure Name | Priori | Date/Time | Associated Diagnosis | Comments | | | ty | | | | + +--------+ + + + | ECG - EXTERNAL SCAN | | 09/05/2015 | | Results for this | | | | 12:00 AM | | procedure are in the | | | | PDT | | results section. | + +--------+ + + + documented in this encounter Results ECG - EXTERNAL SCAN (09/05/2015 12:00 AM PDT) + + + | Narrative | Performed At | + + + | Ordered by an | | | unspecified provider. | | + + + documented in this encounter Visit Diagnoses + + | Diagnosis | + + | Paroxysmal atrial tachycardia (HCC) - Primary Paroxysmal supraventricular tachycardia | + + | Chest pain, unspecified type | + + documented in this encounter
--- OUTSIDE RECORDS SUMMARY | ~2019-01-15 | XMS | Encounter Summary ---
Demographics + + + | Address | [address] | | | [place] [address] | + + + | Home Phone [...] | + + +---------+ + | Vahe Khna | ECON | Unknown | | + + +---------+ + Care Team Providers + +------+ + | Care Insurance Claims Examiner Name | Role | Phone | + [...] | RN | | | | | [place], | | | | | | [place] [address] | | | | | | [phone] | | | +--------+ + + + [...] | | | | [place] | | | | | | [address] | | | | | | | | +--------+---------+ + + + | 11/24/ | Office | Cardiology | [place], | | | 2019 | Visit | | SINDHU Erickson [address] | | | | | | [place], | | | | | | [place] [address] | | | | | | [phone] | | | | | | | | +--------+---------+ + + + documented as of this encounter Visit Diagnoses Not on filedocumented in this encounter"
--- OUTSIDE RECORDS SUMMARY | ~2019-01-15 | XMS | Encounter Summary ---
Demographics + + + | Address | [address] | | | [place] [address] | + + + | Home Phone | | + + + | Preferred Language | Unknown | + + + | Marital Status | Single | + + + | Buddhist Affiliation | 1041 | + + + | Race | Unknown | + + + | Ethnic Group | Unknown | + + + Author + + + | Author | [facility] | | | and [place] | + + + | Organization | [facility] | | [...] Providers + +------+ + | Care Senior Strategy Manager Name | Role | Phone | [...] Description | +--------+---------+ + + + | 07/27/ | Office | [facility] | Brian Miranda | Sprain of chest | | 2013 | Visit | [facility] | MD [address] | abigail garcia | | | | [address] | [facility] | encounter (Primary | | | | [address] [facility] | [place] [address] | Dx); Place of | | | | [place], [place] | [phone] | occurrence, | | | | [address] | | industrial places | | | | [phone] | | and premises | +--------+---------+ + [...] + + + | Blood Pressure | 96/60 | 07/27/2013 8:22 AM | | | | | PDT | | + + + + + | Pulse | 108 | 07/27/2013 8:22 AM | | | | | PDT | | + + + + + | Temperature | 36.4 C (97.6 F) | 07/27/2013 8:22 AM | | | | | PDT | | + + + + + | Respiratory Rate | 16 | 07/27/2013 8:22 AM | | | | | PDT | | + + + + + | Oxygen Saturation | - | - | | + + + + + | Inhaled Oxygen | - | - | | | Concentration | | | | + + + + + | Weight | 68.9 kg (152 lb) | 07/27/2013 8:22 AM | | | | | PDT | | + + + + + | Height | 157.5 cm (5' 2") | 07/27/2013 8:22 AM | | | | | PDT | | + + + + + | Body Mass Index | 27.8 | 07/27/2013 8:22 AM | | | | | PDT | | + + + + + documented in this encounter Progress Notes Brian Miranda MD - 07/27/2013 10:36 AM PDTEmployer: Jeannette Salcedo Guarantor: [employer] Date of injury: 04/05/13 [place]: [id number] Chief complaint: chest wall sprain, closing evaluation Subjective: injured worker is 48 who finally presents for a scheduled followup appointment, having missed several appointments or rescheduling them. She states that she's doing well her symptoms have essentially resolved and she believe she can be released from care she den ies having any problems this point in time with breathing pain restrictions to activities. She's returned to all regular work responsibilities. 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 No rose nges in background medical information of. Past medical history, medications, allergies reviewed Review of systems: As per HPI Objective: Vital signs as noted, nursing notes reviewed. Nwkrxsz-tnbd-fyjjxdine, well-nourished, in no apparent distress, pleasant cooperative. chest: The chest wall is normal to inspection she did have some tenderness with palpation over the costochondral junction in the left upper rib cage. This was significantly reduced from previous determinations. She demonstrated normal respiratory pattern and her lungs wer e clear and auscultation in all quadrants. Cardiac: Regular rhythm no click murmur or rub, no evidence of peripheral circulatory compr omise. Imaging/diagnostics: None indicated this visit Pending interventions: Continue conservative management. Assessment: 1.Chest wall sprain, MMI status Plan: injured worker will be released from care, certainly she may return should there be a n expected development of worsening. She is reminded to be cautious with regards to work ac tivities, follow up will be as needed. She voiced understanding and agreement E:Regular work R:No restrictions. There is no impairment as a consequence of this injury, no need for wor k accommodations or vocational services. She is released from care with followup when alexandra hassan. documented in t his encounter Plan of [...] [place] | | | | | | [id number] | | | | | | | | +--------+---------+ + + + | 11/24/ | Office | Cardiology | [place], | | | 2019 | Visit | | SINDHU Erickson [address] | | | | | | [place] | | | | | | [place] [address] | | | | | | [phone] | | | | | | | | +--------+---------+ + + + documented as of this encounter Visit Diagnoses + + | Diagnosis | + + | Sprain of chest wall, subsequent encounter - Primary | + + | Place of occurrence, industrial places and premises | + + documented in this encounter
--- OUTSIDE RECORDS SUMMARY | ~2019-01-15 | XMS | Encounter Summary ---
Demographics + + + | Address | [address] | | | [place] [address] | + + + | Home Phone [...] Team Providers + +------+ + | Care Medicaid Specialist Name | Role | Phone | + +------+ + | Juan Cherry DO | PCP | | + +------+ + Encounter Details +--------+ + + + + | Date | Type | Department | Care Team | Description | +--------+ + + + + | 02/19/ | Orders Only | [facility] [place] | Pola Nilda L, | | | 2017 | | CARDIOLOGY [address] | RN | | | | | [place], | | | | | | [place] [address] | | | | | | [phone] | | | +--------+ + + + [...] [place] | | | | | | [address] | | | | | | | | +--------+---------+ + + + | 11/24/ | Office | Cardiology | [place], | | | 2020 | Visit | | SINDHU Erickson [address] | | | | | | [place], | | | | | | [place] [address] | | | | | | [phone] | | | | | | | | +--------+---------+ + + + documented as of this encounter Visit Diagnoses Not on filedocumented in this encounter"
--- OUTSIDE RECORDS SUMMARY | ~2019-01-15 | XMS | Encounter Summary ---
Demographics + + + | Address | [address] | | | [place] [address] | + + + | Home Phone [...] Team Providers + +------+ + | Care Staff Cytotechnologist Name | Role | Phone | + +------+ + | Juan Cherry DO | PCP | | + +------+ + Reason for Visit + + + | Reason | Comments | + + + | Cystitis | Interstitial cystitis | + + + Encounter Details +--------+ + + + + | Date | Type | Department | Care Team | Description | +--------+ + + + + | 05/22/ | Clinical | [facility] | Andriy Weber | Interstitial | | 2018 | Support | [address] | MD [address] | cystitis (chronic) | | | | [place], [place] | [facility] | without hematuria | | | | [address] | [place] [address] | | | | | [phone] | [phone] | | | | | | | [...] encounter Progress Notes Virgen Soliz RN - 05/22/2017 9:30 AM PDTPatient presents for DMSO treatment. Afte r sterile prep, 2% lidocaine gel introduced into urethra for comfort and 15 Fr urethral cath eter inserted into bladder with clear yellow urine drained from bladder. 20 cc 2% lidocain e, 10 cc 8.4% sodium bicarbonate, 40 mg kenalog, and 10,000 units heparin instilled into melanie dder via gravity per protocol and Dr. Weber's order. Patient remained in the office for 20 minutes prior to voiding. After voiding, patient was discharged home and will [facility] for next treatment.Electronically signed by Virgen Soliz RN at 018 10:02 AM PDTdocumented in this encounter Plan of [...] | | | | | | [place] [address] | | | | | | [phone] | | | | | | | | +--------+---------+ + + + documented as of this encounter Procedures + +--------+ + + + | Procedure Name | Priori | Date/Time | Associated Diagnosis | Comments | | | ty | | | | + +--------+ + + + | POCT URINALYSIS, | Routin | 05/22/2017 | Interstitial | Results for this | | AUTO WITH CONF | e | 10:01 AM | cystitis (chronic) | procedure are in the | | | | PDT | without hematuria | results section. | + +--------+ + + + documented in this encounter Results POCT Urinalysis Dipstick Automated (05/22/2017 10:01 AM PDT) + + + + + [...] 1.001 - 1.030 | | | | [place], | | | | | | UA, [...] Diagnosis | + + | Interstitial cystitis (chronic) without hematuria | + + documented in this encounter Administered Medications + +--------+ +---------+------+---------+ | Medication Order | MAR | Action | Dose | Rate | Site | | | Action | Date | | | | + +--------+ +---------+------+---------+ | heparin 10,000 units/mL | Given | 05/23/19 | 10,000 | | Bladder | | injection 10,000 Units 10,000 | | 18 9:50 | Units | | | | Units, Irrigation, ONCE, Carey | | AM PDT | | | | | 05/22/17 at 1015, For 1 dose, | | | | | | | Bladder instillation, | | | | | | + +--------+ +---------+------+---------+ +---+---+ | | | +---+---+ + +-------+ +--------+---+---------+ | lidocaine 2% injection 20 mL | Given | 05/23/19 | 20 mLs | | Bladder | | 20 mL, Other, ONCE, Carey 05/22/17 | | 18 9:51 | | | | | at 1015, For 1 dose, Bladder | | AM PDT | | | | | instillation, | | | | | | + +-------+ +--------+---+---------+ +---+---+ | | | +---+---+ + +-------+ +--------+-------+---------+ | sodium bicarbonate 1 mEq/mL | Given | 05/23/19 | 10 mEq | 600 | Bladder | | injection 10 mEq 10 mEq, Other, | | 18 9:52 | | mL/hr | | | Administer over 1 Minutes, ONCE, | | AM PDT | | | | | Carey 05/22/17 at 1015, For 1 dose, | | | | | | | Bladder instillation, | | | | | | + +-------+ +--------+-------+---------+ +---+---+ | | | +---+---+ + +-------+ +-------+---+---+ | triamcinolone acetonide | Given | 05/23/19 | 40 mg | | | | (KENALOG-40) 40 mg/mL injection | | 18 9:52 | | | | | 40 mg 40 mg, Other, ONCE, Carey | | AM PDT | | | | | 05/22/17 at 1015, For 1 dose, | | | | | | | Shake well. Not for IV use. | | | | | | | Bladder instillation, | | | | | | + +-------+ +-------+---+---+ +---+---+ | | | +---+---+ documented in this encounter"
--- OUTSIDE RECORDS SUMMARY | ~2019-01-15 | XMS | Encounter Summary ---
Demographics + + + | Address | [address] | | | [place] [address] | + + + | Home Phone [...] Team Providers + +------+ + | Care Solid Waste Landfill Technician Name | Role | Phone | + +------+ + | Juan Cherry DO | PCP | | + +------+ + Reason for Visit + + + | Reason | Comments | + + + | Follow-up | PAT | + + + | COPD | | + + + | Chest Pain | | + + + Encounter Details +--------+---------+ + + + | Date | Type | Department | Care Team | Description | +--------+---------+ + + + | 05/06/ | Office | [facility] | [place], | Palpitations | | 2018 | Visit | CARDIOLOGY [address] | SINDHU Erickson [address] | (Primary Dx); Chest | | | | [place], | [place], | pain, unspecified | | | | [place] [address] | [place] [address] | type; Syncope, | | | | [phone] | [phone] | unspecified syncope | | | | | | type; | | | | | | Hypothyroidism, | | | | | | unspecified type | +--------+---------+ + + + Social [...] + + + | Blood Pressure | 122/60 | 05/06/2017 9:51 AM | | | | | PDT | | + + + + + | Pulse | 60 | 05/06/2017 9:51 AM | | | | | PDT | | + + + + + | Temperature | - | - | | + + + + + | Respiratory Rate | 18 | 05/06/2017 9:51 AM | | | | | PDT | | + + + + + | Oxygen Saturation | - | - | | + + + + + | Inhaled Oxygen | - | - | | | Concentration | | | | + + + + + | Weight | 77.1 kg (169 lb 15.6 | 05/06/2017 9:51 AM | | | | oz) | PDT | | + + + + + | Height | 157.5 cm (5' 2") | 05/06/2017 9:51 AM | | | | | PDT | | + + + + + | Body Mass Index | 31.09 | 05/06/2017 9:51 AM | | | | | PDT [...] as of this encounter Progress Notes Georgina Tanner ARNP - 05/06/2017 10:00 AM PDTFormatting of this note might be differen t from the original. PATIENT NAME: Rosario Malik : 1965: AGE: 52 y.o. PRIMARY CARE: Juan Cherry DO OUTPATIENT FOLLOW UP VISIT Date of Service: 05/06/2017 HISTORY OF PRESENT ILLNESS: Rosario Malik is a 52 y.o. female with a history of non-cardiac chest pain, inappro priate atrial tachycardia, paroxysmal atrial tachycardia with palpitations, emphysema, hypot hyroidism obstructive sleep apnea and nocturnal hypoxemia and bipolar disorder. She was last seen 11/06/16 at which time results of Holter were discussed with her and answ ers were given, she was told the current medical regimen is effective; continue present plan and medications, she will follow up in 6 months, or sooner with concerns. Since that time, she has been "doing well". She has had a fair energy level. She has not been very active. She is only doing chores around the house. She enjoys watching TV in her spare time. She has not had any chest pain or discomfort at rest or with exertion. She ledezma s had shortness of breath with exertion of doing too much. She has lightheadedness with rose nges of positions. She has not noticed palpitations. She has not had leg swelling. She sl eeps on 2 pillows at night, which is her norm, and does not wake up at night feeling short o f breath. She sleeps with oxygen in place daily with 2.5 liters per minute by nasal cannula . She has been doing some diet changes and has lost 9 lbs. MEDICAL, SURGICAL, AND PERSONAL HISTORY Past Medical, [...] needed for Wheezing or Shortness of Breath. (Patient not taking: Reported on 05/06/2017) 1 Inhaler 5 albuterol-ipratropium (DUONEB) 2.5-0.5 mg/3 mL SOLN Take 3 mLs by nebulization every 4 hours as needed. 360 mL 5 fluticasone-salmeterol (ADVAIR HFA) 115-21 MCG/ACT inhaler Inhale 2 puffs into the lung s 2 times daily. 1 Inhaler 5 gabapentin (NEURONTIN) 800 MG tablet Take 800 mg by mouth 3 times daily. hydrOXYzine hydrochloride (ATARAX) 25 mg tablet TAKE 1 TABLET BY MOUTH NIGHTLY. 30 tab let 4 levothyroxine (SYNTHROID, LEVOTHROID) 75 MCG tablet Take 75 mcg by mouth every morning (before breakfast). metFORMIN (GLUCOPHAGE) 500 mg tablet Take 500 mg by mouth 2 times daily (with breakfast & dinner). 3 oxybutynin (DITROPAN) 5 mg tablet TAKE ONE [...] 2 times daily. She takes this da [facility] Respiratory Therapy Supplies [facility] [place] Please provide patient with necessary CPAP supplies ( she did not specify, okay to send order as appropriate) Diagnosis Code(s)327.23 . Length of Need 99 months. Please send order to [facility]. 1 each 0 Respiratory Therapy Supplies MISC Change CPAP back to 11-14 cm H2O. All necessary suppl ies. No oxygen bleed in. Diagnosis Code(s)327.23. Length of Need: Lifetime. Please send orde r to [facility]. This is not a new order, [...] visit. ALLERGIES Allergies Allergen Reactions Onion Anaphylaxis Doxycycline Hives Erythromycin Base Other (See Comments) Bloating and swelling, lips swell Macrolides And Ketolides Hives Nsaids Hives Pork Allergy Other (See Comments) GI distress Meperidine Panic attacks ROS Review of Systems Constitutional: Negative for malaise/fatigue. HENT: Negative for nosebleeds. Respiratory: Negative for shortness of breath. Cardiovascular: Negative for chest pain and palpitations. Neurological: Positive for dizziness and headaches. Negative for weakness. OBJECTIVE: PHYSICAL EXAM BP 122/60 | Pulse 60 | Resp 18 | Ht 1.575 m (5' 2") | Wt 77.1 kg (169 lb 15.6 oz) | BM I 31.09 kg/m Physical Exam Constitutional: She appears well-developed [...] lead Result Value Ref Range INTERPRETATION TEXT normal sinus rhythm with a heart rate of 65 bpm no acute changes LAB RESULTS reviewed during visit today primarily from [facility]: LIPID Lab Results Component Value Date CHOLHDL [...] 417 (A) 03/18/2017 I reviewed records from PCP for office visit on 03/06/2017 Re:: Screening and dietitian iss ues. Above data and testing is reviewed this [...] She was seen at the ED of [facility] 3 weeks ago and again 1 week [...] is in a class I-II o f [place] [employer] functional class. There is no [...] and v entricular function done at the [facility]. LVEF 78%. C. Holter Monitor 08/16/13 Underlying [...] 10/16/16 shows The predominant rhythm is sinus wi th HR between 44 to 157 bpm. The average HR was 72 bpm during the 47:43 hour recording,Ther e were occasional PVC's (1055 total, mean 22.1/hr) with 10 couplets and no triplets,There w ere occasional PAC's (1807 total, mean 37.8/hr), There were 842 episodes of sinus bradycardi a. The longest was 1183 beats on 02:44. The minimum rate was 41 bpm on 0 5:58,There were 78 episodes of sinus tachycardia. The longest was 289 beats on 18: 15. The maximum rate was 163 bpm on 18:29,Diary was not returned and no symptoms r eported. G. She has been mostly asymptomatic. No syncope or near syncope episodes. 2. Emphysema/COPD: A. She is on oxygen. 3. Hypothyroidism 4. Obstructive sleep apnea and nocturnal hypoxemia A. She is utilizing BiPAP with no oxygen PLAN: 1. The current medical regimen is effective; continue present plan and medications. 2. She has been encouraged to go out and walk more often 3. She will follow up in 1 year, or sooner with concerns. Portions of this chart may have been created with Miira voice recognition software. Occasi onal wrong-word or [...] | 2019 | Visit | | [address] | | | | | | [place] | | | | | | [address] | | | | | | | | +--------+---------+ + + + | 11/24/ | Office | Cardiology | [place], | | | 2019 | Visit | | SINDHU Erickson [address] | | | | | | [place] | | | | | | [place] [address] | | | | | | [phone] | | | | | | | | +--------+---------+ + + + documented as of this encounter Procedures + +--------+ + + + | Procedure Name | Priori | Date/Time | Associated Diagnosis | Comments | | | ty | | | | + +--------+ + + + | ECG 12 LEAD | Routin | 05/06/2017 | Palpitations | Results for this | | | e | 4:53 PM | Chest pain, | procedure are in the | | | | PDT | unspecified type | results section. | | | | | Syncope, unspecified | | | | | | syncope type | | | | | | Hypothyroidism, | | | | | | unspecified type | | + +--------+ + + + | LABS - EXTERNAL SCAN | | 03/18/2017 | | Results for this | | | | 12:00 AM | | procedure are in the | | | | PST | | results section. | + +--------+ + + + documented in this encounter Results ECG 12 lead (05/06/2017 4:53 PM PDT) + + + + + + | Component | Value | Ref Range | Performed | Pathologist | | | | | At | Signature | + + + + + + | VENTRICULAR | 65 | BPM | [facility] | | | RATE EKG | | | | | + + + + + + | ATRIAL RATE | 65 | BPM | [facility] | | + + + + + + | P-R | 118 | ms | [facility] | | | INTERVAL | | | | | + + + + + + | QRS | 72 | ms | [facility] | | | DURATION | | | | | + + + + + + | Q-T | 452 | ms | [facility] | | | INTERVAL | | | | | + + + + + + | Q-T | 470 | ms | [facility] | | | INTERVAL | | | | | | (CORRECTED) | | | | | + + + + + + | P WAVE AXIS | 72 | degrees | [facility] | | + + + + + + | QRS AXIS | 55 | degrees | [facility] | | + + + + + + | T AXIS | 71 | degrees | [facility] | | + + + + + + | INTERPRETAT | Normal sinus | | [facility] | | | ION TEXT | rhythmNormal ECGWhen | | | | | | compared with ECG of | | | | | | 16-OCT-2016 08:23,QT has | | | | | | lengthenedConfirmed by | | | | | | DANIEL PAUL, CLAY | | | | | | ([id number]) on 05/06/2017 | | | | | | 4:53:06 PM | | | | + + + + + + + + | Specimen | + + | | + + + + + | Narrative | Performed At | + + + | | | + + + + +---------+ + + | Performing | Address | City/State/Zipcode | Phone Number | | Organization | | | | + +---------+ + + | [facility] | | | | + +---------+ + + LABS - EXTERNAL SCAN (03/18/2017 12:00 AM PST) + + + | Narrative | Performed At | + + + | Ordered by an | | | unspecified provider. | | + + + documented in this encounter Visit Diagnoses + + | Diagnosis | + + | Palpitations - Primary | + + | Chest pain, unspecified type | + + | Syncope, unspecified syncope type | + + | Hypothyroidism, unspecified type | + + documented in this encounter
--- OUTSIDE RECORDS SUMMARY | ~2019-01-15 | XMS | Encounter Summary ---
Demographics + + + | Address | [address] | | | [place] [address] | + + + | Home Phone [...] Team Providers + +------+ + | Care Retail Asset Protection Specialist Name | Role | Phone | [...] | | | | OP [address] | [place], [place] | | | | | [place], [place] | [address] | | | | | [address] | | | | | | [phone] | | | +--------+ + + + [...] Watson PT - 06/11/2016 10:11 AM [facility] [address] [facility] [address] Cancellation/No Show Date: 06/11/2016 Patient Information Patient Name: Rosario Malik Date of : 1965 Age: 51 y.o. Reason for missed visit: Called to cancel due to illness Phone call placed: no Plan: Cont with POC (2 more appts) Electronically signed by: Lakeshia Barkley PT, 06/11/2016 10:11 Patient Name: Rosario Malik/: 1965[facility] of Treatment +--------+---------+ + + + | Date | Type | Specialty | Care Team | Description | +--------+---------+ + + + | 03/01/ | Office | Pulmonology | Mukul Clark MD | | | 2019 | Visit | | [address] | | | | | | [place] | | | | | | [address] | | | | | | | | +--------+---------+ + + + | 11/24/ | Office | Cardiology | [place], | | | 2019 | Visit | | SINDHU Erickson [address] | | | | | | [place], | | | | | | [place] [address] | | | | | | [phone] | | | | | | | | +--------+---------+ + + + documented as of this encounter Visit Diagnoses Not on filedocumented in this encounter"
--- OUTSIDE RECORDS SUMMARY | ~2019-01-15 | XMS | Encounter Summary ---
Demographics + + + | Address | [address] | | | [place] [address] | + + + | Home Phone [...] Providers + +------+ + | Care Nursing Informatics Analyst Name | Role | Phone | + +------+ + | Juan Cherry DO | PCP | | + +------+ + Encounter Details +--------+ + + + + | Date | Type | Department | Care Team | Description | +--------+ + + + + | 04/27/ | Orders Only | [facility] [place] | [place], | Obstructive sleep | | 2012 | | PULMONARY [address] | Loreta Alosno MD | apnea (adult) | | | | [place], | | (pediatric) (Primary | | | | [place] [address] | | Dx) | | | | [phone] | | | +--------+ + + + [...] [place] | | | | | | [address] | | | | | | | | +--------+---------+ + + + | 11/24/ | Office | Cardiology | [place], | | | 2019 | Visit | | SINDHU Erickson [address] | | | | | | [place], | | | | | | [place] [address] | | | | | | [phone] | | | | | | | | +--------+---------+ + + + documented as of this encounter Visit Diagnoses + + | Diagnosis | + + | Obstructive sleep apnea (adult) (pediatric) - Primary | + + documented in this encounter"
--- OUTSIDE RECORDS SUMMARY | ~2019-01-15 | XMS | Encounter Summary ---
Demographics + + + | Address | [address] | | | [place] [address] | + + + | Home Phone [...] Team Providers + +------+ + | Care Specimen Transporter Name | Role | Phone | + +------+ + PCP | Unavailable | + +------+ + Encounter Details +--------+ + + + + | Date | Type | Department | Care Team | Description | +--------+ + + + + | 05/01/ | Hospital | [facility] | Alexi Guaman, | | | 2010 | Encounter | [facility] | [address] | | | | | CENTER [address] | [place] | | | | | [place] | [address] | | | | | [address] | | | | | | [phone] | | | +--------+ + + + [...] [place] | | | | | | [address] | | | | | | | | +--------+---------+ + + + | 11/24/ | Office | Cardiology | [place], | | | 2019 | Visit | | SINDHU Erickson [address] | | | | | | [place], | | | | | | [place] [address] | | | | | | [phone] | | | | | | | | +--------+---------+ + + + documented as of this encounter Procedures + +--------+ + + + | Procedure Name | Priori | Date/Time | Associated Diagnosis | Comments | | | ty | | | | + +--------+ + + + | CBC NO DIFFERENTIAL | Routin | 05/01/2010 | | Results for this | | | e | 6:27 PM | | procedure are in the | | | | PST | | results section. | + +--------+ + + + | BASIC METABOLIC | Routin | 05/01/2010 | | Results for this | | PANEL | e | 6:27 PM | | procedure are in the | | | | PST | | results section. | + +--------+ + + + | XR CHEST PA OR AP | | 05/01/2010 | | Results for this | | | | 5:32 PM | | procedure are in the | | | | PST | | results section. | + +--------+ + + + documented in this encounter Results CBC no Differential (05/01/2010 6:27 PM PST) + +-------+ + + + | Component | Value | Ref Range | Performed | Pathologist | | | | | At | Signature | + +-------+ + + + | WBC | 7.9 | 4.0 - 11.0 K/uL | [facility] | | | | | [facility] | | [facility] | | | [facility] - | | | | | | LABORATORY | | + +-------+ + + + | RBC | 4.72 | 3.70 - 5.20 | [facility] | | | | | M/uL | [facility] | | | | | | [facility] | | | | | | [facility] - | | | | | | LABORATORY | | + +-------+ + + + | Hemoglobin | 14.5 | 11.5 - 16.0 | [facility] | | | | | gm/dL | [facility] | | | | | | [facility] | | | | | | [facility] - | | | | | | LABORATORY | | + +-------+ + + + | Hematocrit | 42.7 | 34.0 - 47.0 % | [facility] | | | | | [facility] | | | | | | [facility] | | | | | | [facility] - | | | | | | LABORATORY | | + +-------+ + + + | MCV | 90.6 | 83.0 - 101.0 fL | [facility] | | | | | [facility] | | | | | | [facility] | | | | | | [facility] - | | | | | | LABORATORY | | + +-------+ + + + | MCH | 30.7 | 28.0 - 35.0 pg | [facility] | | | | | [facility] | | | [facility] | | [facility] | | | | | | [facility] - | | | | | | LABORATORY | | + +-------+ + + + | MCHC | 33.9 | 32.0 - 36.0 | [facility] | | | | | g/dL | [facility] | | | | | | [facility] | | | | | | [facility] - | | | | | | LABORATORY | | + +-------+ + + + | RDW-CV | 13.9 | <15.0 % | [facility] | | | | | [facility] | | | | | | [facility] | | | | | | [facility] - | | | | | | LABORATORY | | + +-------+ + + + | Platelet | 354 | 140 - 440 K/uL | [facility] [...] + | [facility] | [address] | [place] | [phone] | | [facility] | | [address] | | | - LABORATORY | | | | + + + + + | [facility] | [address] | [place] | | | [facility] | | [address] | | | - LABORATORY | | | | + + + + + Basic Metabolic Panel (05/01/2010 6:27 PM PST) + + + + + + | Component | Value | Ref Range | Performed | Pathologist | | | | | At | Signature | + + + + + + | Glucose | 100 | 70 - 109 mg/dL | [facility] | | | | | [...] + + + + | BUN | 9 | 7 - 18 mg/dL | [facility] | | | | | [facility] | | | | | [facility] | | | | | | [facility] - | | | | | | LABORATORY | | + + + + + + | Creatinine | 0.85 | 0.60 - 1.30 | [facility] | | | | | mg/dL | [facility] | | | | | | MEDICAL | | | | | | CENTER - | | | | | | LABORATORY | | + + + + + + | Estimated | >60 (L)Comment: For | >60 mL/min/A | [facility] | | | GFR | -Americans, | | [facility] | | | | please multiply the [...] + + + + | BUN/Creatin | 10.6 (L) | 12 - 20 | [facility] | | | ine Ratio | | | [facility] | | | | | | MEDICAL | | | | | | CENTER - | | | | | | LABORATORY | | + + + + + + | Na | 136 | 136 - 149 mEq/L | [facility] | | | | | | [facility] | | | | | | [facility]ICAL | | | | | | CENTER - | | | | | | LABORATORY | | + + + + + + | K | 4.0 | 3.5 - 5.1 mEq/l | [facility] | | | | | | [facility] | | | | | | [facility] | | | | | | CENTER - | | | | | | LABORATORY | | + + + + + + | Cl | 108 | 98 - 109 mEq/l | [facility] [...] + + + | Anion Gap | 8.0 | 6.0 - 17.0 | [facility] | [...] + | [facility] | [address] | [place], [place] | [phone] | | [facility] | | [address] | | | - LABORATORY | | | | + + + + + | [facility] | [address] | [place], [place] | | | [facility] | | [address] | | | - LABORATORY | | | | + + + + + XR Chest PA or AP (05/01/2010 5:32 PM PST) + + | Specimen | + + | | + + + + + | Narrative | Performed At | + + + | [facility] Diagnostic Imaging Department | [facility] | | [address] [facility] | [facility] | | PORTABLE CHEST, 05/01/2010 AT | DIAG IMG | | 1807 CLINICAL HISTORY: DIZZINESS. COMPARISON: 02/27/2010 | | | FINDINGS: Heart size is normal. Hilar regions and | | | pulmonary vasculature are normal. No areas of abnormal lung | | | density are seen. No bony or upper abdominal abnormalities are | | | noted. IMPRESSION: 1. NEGATIVE STUDY OF THE CHEST. | | | Dictated Date/Time: 05/02/2010 11:04 Transcribed Date/Time: | | | 05/02/2010 11:54 Construction Pit Worker: <Electronically Signed | | | by Cesar Ren MD> 05/02/10 1555 | | + + + + ---------+ | Procedure Note | + ---------+ | Reed, Rad Conversion - 04/02/2013 2:24 PM [facility] | | Diagnostic Imaging Department [address] [place] [address] | | PORTABLE CHEST, 05/01/2010 AT 1807 CLINICAL HISTORY: | | DIZZINESS. COMPARISON: 02/27/2010 FINDINGS: Heart size is normal. Hilar regions | | and pulmonary vasculature are normal. No areas of abnormal lung density are seen. No | | bony or upper abdominal abnormalities are noted. IMPRESSION: 1. NEGATIVE STUDY OF THE | | CHEST. Dictated Date/Time: 05/02/2010 11:04 Transcribed Date/Time: 05/02/2010 11:54 | | Construction Pit Worker: <Electronically Signed by Cesar Ren MD> 05/02/10 1555 | |CLINICAL HISTORY: DIZZINESS. | | | |COMPARISON: 02/27/2010 | | | |FINDINGS: Heart size is normal. Hilar regions and pulmonary vasculature are normal. No a reas of | |abnormal lung density are seen. No bony or upper abdominal abnormalities are noted. | | | |IMPRESSION: | |1. NEGATIVE STUDY OF THE CHEST. | | | |Dictated Date/Time: 05/02/2010 11:04 | |Transcribed Date/Time: 05/02/2010 11:54 | |Construction Pit Worker: | |<Electronically Signed by Cesar Ren MD> 05/02/10 1555 | + ---------+ + +---------+ + + | Performing | Address | City/State/Zipcode | Phone Number | | Organization | | | | + +---------+ + + | [place] | | | | | [facility] | | | | + +---------+ + + documented in this encounter Visit Diagnoses Not on filedocumented in this encounter"
--- OUTSIDE RECORDS SUMMARY | ~2019-01-15 | XMS | Encounter Summary ---
Demographics + + + | Address | [address] | | | [place] [address] | + + + | Home Phone | | + + + | Preferred Language | Unknown | + + + | Marital Status | Single | + + + | Pentecostalism Affiliation | 1041 | + + + | Race | Unknown | + + + | Ethnic Group | Unknown | + + + Author + + + | Author | [facility] | | | and [place] | + + + | Organization | [facility] | | | [...] Team Providers + +------+ + | Care Maitre D Name | Role | Phone | + [...] | | | | | pulmonary | [address] | [address] | | | | | disease, | [place], | [place] | | | | | unspecified | [place] [address] | [place], [place] | | | | | COPD type | Phone: | [address] | | | | | (HCC) | [phone] | Phone: | | | | | Pulmonary | Fax: | [phone] | | | | | emphysema, | [phone] | Fax: | | | | | unspecified | | [phone] | | | | | emphysema | | | | | | | type ([facility]) | | | +--------+ + + + + + Encounter Details +--------+---------+ + + + | Date | Type | Department | Care Team | Description | +--------+---------+ + + + | 05/14/ | Office | [facility] | Jared Mcdonough, | Chronic obstructive | | 2017 | Visit | MED CTR CARDIAC | [address] | pulmonary disease, | | | | REHABILITATION [address] [place], | unspecified COPD | | | | [address] [place] | [place] [address] | type (HCC) (Primary | | | | [place] [address] | [phone] | Dx); Pulmonary | | | | [phone] | | emphysema, | | | | [...] Desean Chris - 05/14/2016 3:39 PM PDT [facility] CARDIAC REHABILITATION [address] [place] [address] Cardiac Rehab Date: 05/14/2016 Patient Information Patient [...] | | | | [place] | | | | | | [address] | | | | | | | | +--------+---------+ + + + | 11/24/ | Office | Cardiology | [place], | | | 2019 | Visit | | SINDHU Erickson [address] | | | | | | [place], | | | | | | [place] [address] | | | | | | [phone] | | | | | | | | +--------+---------+ + + + documented as of this encounter Visit Diagnoses + + | Diagnosis | + + | Chronic obstructive pulmonary disease, unspecified COPD type (HCC) - Primary | + + | Pulmonary emphysema, unspecified emphysema type (HCC) | + + documented in this encounter"
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
--- OUTSIDE RECORDS SUMMARY | ~2019-01-15 | XMS | Encounter Summary ---
Demographics + + + | Address | [address] | | | [place] [address] | + + + | Home Phone | | + + + | Preferred Language | Unknown | + + + | Marital Status | Single | + + + | Church Affiliation | 1041 | + + + | Race | Unknown | + + + | Ethnic Group | Unknown | + + + Author + + + | Author | [facility] | | | and [place] | + + + | Organization | [facility] | | | [...] Providers + +------+ + | Care Power And Recovery Supervisor Name | Role | Phone | + +------+ + | Juan Cherry DO | PCP | | + +------+ + Encounter Details +--------+ + + + + | Date | Type | Department | Care Team | Description | +--------+ + + + + | 11/14/ | Abstract | [facility] | Jared Mcdonough, | | | 2014 | | CARDIOLOGY [address] | MD [address] | | | | | [place], | [place], | | | | | [place] [address] | [place] [address] | | | | | [phone] | [phone] | | | | | | | [...] [place] | | | | | | [address] | | | | | | | | +--------+---------+ + + + | 11/24/ | Office | Cardiology | [place], | | | 2019 | Visit | | SINDHU Erickson [address] | | | | | | [place], | | | | | | [place] [address] | | | | | | [phone] | | | | | | | | +--------+---------+ + + + documented as of this encounter Procedures + +--------+ + + + | Procedure Name | Priori | Date/Time | Associated Diagnosis | Comments | | | ty | | | | + +--------+ + + + | EXTERNAL LAB: CHANDLER | Routin | 07/11/2014 | | Results for this | | | e | | | procedure are in the | | | | | | results section. | + +--------+ + + + | EXTERNAL LAB: | Routin | 07/11/2014 | | Results for this | | GLUCOSE | e | | | procedure are in the | | | | | | results section. | + +--------+ + + + | EXTERNAL LAB: ALT | Routin | 07/11/2014 | | Results for this | | | e | | | procedure are in the | | | | | | results section. | + +--------+ + + + | EXTERNAL LAB: AST | Routin | 07/11/2014 | | Results for this | | | e | | | procedure are in the | | | | | | results section. | + +--------+ + + + | EXTERNAL LAB: | Routin | 07/11/2014 | | Results for this | | ALKALINE PHOSPHATASE | e | | | procedure are in the | | | | | | results section. | + +--------+ + + + | EXTERNAL LAB: | Routin | 07/11/2014 | | Results for this | | BILIRUBIN, TOTAL | e | | | procedure are in the | | | | | | results section. | + +--------+ + + + | EXTERNAL LAB: | Routin | 07/11/2014 | | Results for this | | ALBUMIN | e | | | procedure are in the | | | | | | results section. | + +--------+ + + + | EXTERNAL LAB: | Routin | 07/11/2014 | | Results for this | | MAGNESIUM | e | | | procedure are in the | | | | | | results section. | + +--------+ + + + | EXTERNAL LAB: | Routin | 07/11/2014 | | Results for this | | CALCIUM | e | | | procedure are in the | | | | | | results section. | + +--------+ + + + | EXTERNAL LAB: CARBON | Routin | 07/11/2014 | | Results for this | | DIOXIDE | e | | | procedure are in the | | | | | | results section. | + +--------+ + + + | EXTERNAL LAB: | Routin | 07/11/2014 | | Results for this | | CHLORIDE | e | | | procedure are in the | | | | | | results section. | + +--------+ + + + | EXTERNAL LAB: | Routin | 07/11/2014 | | Results for this | | POTASSIUM | e | | | procedure are in the | | | | | | results section. | + +--------+ + + + | EXTERNAL LAB: SODIUM | Routin | 07/11/2014 | | Results for this | | | e | | | procedure are in the | | | | | | results section. | + +--------+ + + + | EXTERNAL LAB: CBC | Routin | 07/11/2014 | | Results for this | | | e | | | procedure are in the | | | | | | results section. | + +--------+ + + + | EXTERNAL LAB: EGFR | Routin | 07/11/2014 | | Results for this | | | e | | | procedure are in the | | | | | | results section. | + +--------+ + + + | EXTERNAL LAB: | Routin | 07/11/2014 | | Results for this | | CREATININE | e | | | procedure are in the | | | | | | results section. | + +--------+ + + + documented in this encounter Results External Lab: [facility]ER (07/11/2014) + +-------+ + + + | Component | Value | Ref Range | Performed | Pathologist | | | | | At | Signature | + +-------+ + + + | BUN, | 7 | 7 - 23 | EXTERNAL | | | External | | | LAB | | + +-------+ + + + + +---------+ + + | Performing | Address | City/State/Zipcode | Phone Number | | Organization | | | | + +---------+ + + | EXTERNAL LAB | | | | + +---------+ + + External Lab: Glucose (07/11/2014) + +---------+ + + + | Component | Value | Ref Range | Performed | Pathologist | | | | | At | Signature | + +---------+ + + + | Glucose, | 127 (A) | 70 - 100 | EXTERNAL | | | External | | | LAB | | + +---------+ + + + + +---------+ + + | Performing | Address | City/State/Zipcode | Phone Number | | Organization | | | | + +---------+ + + | EXTERNAL LAB | | | | + +---------+ + + External Lab: ALT (07/11/2014) + +-------+ + + + | Component | Value | Ref Range | Performed | Pathologist | | | | | At | Signature | + +-------+ + + + | ALT, | 17 | 10 - 60 | EXTERNAL | | | External | | | LAB | | + +-------+ + + + + +---------+ + + | Performing | Address | City/State/Zipcode | Phone Number | | Organization | | | | + +---------+ + + | EXTERNAL LAB | | | | + +---------+ + + External Lab: AST (07/11/2014) + +-------+ + + + | Component [...] +---------+ + + External Lab: Alkaline Phosphatase (07/11/2014) + +--------+ + + + | Component | Value | Ref Range | Performed | Pathologist | | | | | At | Signature | + +--------+ + + + | ALP, | 98 (A) | 32 - 92 | EXTERNAL | | | External | | | LAB | | + +--------+ + + + + +---------+ + + | Performing | Address | City/State/Zipcode | Phone Number | | Organization | | | | + +---------+ + + | EXTERNAL LAB | | | | + +---------+ + + External Lab: Bilirubin, Total (07/11/2014) + +-------+ + + + | Component | Value | Ref Range | Performed | Pathologist | | | | | At | Signature | + +-------+ + + + | Bilirubin, | 0.5 | 0.1 - 1.2 | EXTERNAL | | | [...] + +---------+ + + External Lab: Albumin (07/11/2014) + +-------+ + + + | Component | Value | Ref Range | Performed | Pathologist | | | | | At | Signature | + +-------+ + + + | Albumin, | 3.7 | 3.2 - 5.5 | EXTERNAL | | | External | | | LAB | | + +-------+ + + + + +---------+ + + | Performing | Address | City/State/Zipcode | Phone Number | | Organization | | | | + +---------+ + + | EXTERNAL LAB | | | | + +---------+ + + External Lab: Magnesium (07/11/2014) + +-------+ + + + | Component | Value | Ref Range | Performed | Pathologist | | | | | At | Signature | + +-------+ + + + | Magnesium, | 2.3 | 1.8 - 2.4 | EXTERNAL | | | External | | | LAB | | + +-------+ + + + + +---------+ + + | Performing | Address | City/State/Zipcode | Phone Number | | Organization | | | | + +---------+ + + | EXTERNAL LAB | | | | + +---------+ + + External Lab: Calcium (07/11/2014) + +-------+ + + + | Component | Value | Ref Range | Performed | Pathologist | | | | | At | Signature | + +-------+ + + + | Calcium, | 8.7 | 8.3 - 10.5 | EXTERNAL | | | External | | | LAB | | + +-------+ + + + + +---------+ + + | Performing | Address | City/State/Zipcode | Phone Number | | Organization | | | | + +---------+ + + | EXTERNAL LAB | | | | + +---------+ + + External Lab: Carbon Dioxide (07/11/2014) + +-------+ + + + | Component | Value | Ref Range | Performed | Pathologist | | | | | At | Signature | + +-------+ + + + | Carbon | 24 | 22 - 32 | EXTERNAL | | | Dioxide, | | | LAB | | | External | | | | | + +-------+ + + + + +---------+ + + | Performing | Address | City/State/Zipcode | Phone Number | | Organization | | | | + +---------+ + + | EXTERNAL LAB | | | | + +---------+ + + External Lab: Chloride (07/11/2014) + +---------+ + + + | Component | Value | Ref Range | Performed | Pathologist | | | | | At | Signature | + +---------+ + + + | Chloride, | 113 (A) | 100 - 110 | EXTERNAL | | | External | | | LAB | | + +---------+ + + + + +---------+ + + | Performing | Address | City/State/Zipcode | Phone Number | | Organization | | | | + +---------+ + + | EXTERNAL LAB | | | | + +---------+ + + External Lab: Potassium (07/11/2014) + +-------+ + + + | Component | Value | Ref Range | Performed | Pathologist | | | | | At | Signature | + +-------+ + + + | Potassium, | 3.9 | 3.5 - 5.1 | EXTERNAL | | | External | | | LAB | | + +-------+ + + + + +---------+ + + | Performing | Address | City/State/Zipcode | Phone Number | | Organization | | | | + +---------+ + + | EXTERNAL LAB | | | | + +---------+ + + External Lab: Sodium (07/11/2014) + +-------+ + + + | Component [...] | + +---------+ + + External Lab: CBC (07/11/2014) + +-------+ + + + | Component | Value | Ref Range | Performed | Pathologist | | | | | At | Signature | + +-------+ + + + | WBC, | 8.1 | 4.5 - 10 | EXTERNAL | | | External | | | LAB | | + +-------+ + + + | HGB, | 13.7 | 11.8 - 16 | EXTERNAL | | | External | | | LAB | | + +-------+ + + + | HCT, | 40.5 | 34.8 - 45.2 | EXTERNAL | | | External | | | LAB | | + +-------+ + + + | PLT, | 370 | 150 - 400 | EXTERNAL | | | External | | | LAB | | + +-------+ + + + | Neutrophils | 79.0 | | EXTERNAL | | | %, | | | LAB | | | External | | | | | + +-------+ + + + | Lymphocytes | 16.8 | | EXTERNAL | | | %, | | | LAB | | | External | | | | | + +-------+ + + + | Monocytes | 4.0 | | EXTERNAL | | | %, External | | | LAB | | + +-------+ + + + | Eosinophils | 0.1 | | EXTERNAL | | | %, | | | LAB | | | External | | | | | + +-------+ + + + | Neutrophils | 6.4 | 2 - 7.3 | EXTERNAL | | | , Absolute, | | | LAB | | | External | | | | | + +-------+ + + + | Lymphocytes | 1.4 | 0.6 - 3.4 | EXTERNAL | | | , Absolute, | | | LAB | | | External | | | | | + +-------+ + + + | Monocytes, | 0.3 | 0.2 - 1 | EXTERNAL | | | Absolute, | | | LAB | | | External | | | | | + +-------+ + + + | Eosinophils | 0.0 | 0 - 0.4 | EXTERNAL | | | , Absolute | | | LAB | | + +-------+ + + + | Basophils, | 0.0 | 0 - 0.1 | EXTERNAL | | | Absolute | | | LAB | | + +-------+ + + + | RBC, | 4.78 | 4 - 5.1 | EXTERNAL | | | External | | | LAB | | + +-------+ + + + | MCV, | 85 | 80 - 100 | EXTERNAL | | | External | | | LAB | | + +-------+ + + + | RDW, | 13 | 9.6 - 14.2 | EXTERNAL | | | External | | | LAB | | + +-------+ + + + + +---------+ + + | Performing | Address | City/State/Zipcode | Phone Number | | Organization | | | | + +---------+ + + | EXTERNAL LAB | | | | + +---------+ + + External Lab: eGFR (07/11/2014) + +-------+ + + + | Component | Value | Ref Range | Performed | Pathologist | | | | | At | Signature | + +-------+ + + + | eGFR, | 60 | 60 - 99,999 | EXTERNAL | | | External | | | LAB | | + +-------+ + + + + + | Specimen | + + | Blood specimen | | (specimen) | + + + +---------+ + + | Performing | Address | City/State/Zipcode | Phone Number | | Organization | | | | + +---------+ + + | EXTERNAL LAB | | | | + +---------+ + + External Lab: Creatinine (07/11/2014) + +---------+ + + + | Component | Value | Ref Range | Performed | Pathologist | | | | | At | Signature | + +---------+ + + + | Creatinine, | 0.6 (A) | 0.7 - 1.3 | EXTERNAL | | | External | | | LAB | | + +---------+ + + + + + | Specimen | + + | Blood specimen | | (specimen) | + + + +---------+ + + | Performing | Address | City/State/Zipcode | Phone Number | | Organization | | | | + +---------+ + + | EXTERNAL LAB | | | | + +---------+ + + documented in this encounter Visit Diagnoses Not on filedocumented in this encounter"
--- OUTSIDE RECORDS SUMMARY | ~2019-01-15 | XMS | Encounter Summary ---
Demographics + + + | Address | [address] | | | [place] [address] | + + + | Home Phone | | + + + | Preferred Language | Unknown | + + + | Marital Status | Single | + + + | Taoism Affiliation | 1041 | + + + | Race | Unknown | + + + | Ethnic Group | Unknown | + + + Author + + + | Author | [facility] | | | and [place] | + + + | Organization | [facility] | | | [...] Team Providers + +------+ + | Care Frame Hand Name | Role | Phone | + +------+ + | Juan Cherry DO | PCP | | + +------+ + Reason for Visit +--------+ + | Reason | Comments | +--------+ + | Other | increased symptoms | +--------+ + Encounter Details +--------+ + + + + | Date | Type | Department | Care Team | Description | +--------+ + + + + | 05/24/ | Telephone | [facility] [place] | Roenstein, | Other (increased | | 2013 | | PULMONARY [address] | Loreta Alonso MD | symptoms) | | | | [place], | | | | | | [place] [address] | | | | | | [phone] | | | +--------+ + + + [...] | | | | | | [place] [address] | | | | | | [phone] | | | | | | | | +--------+---------+ + + + documented as of this encounter Visit Diagnoses Not on filedocumented in this encounter"
--- OUTSIDE RECORDS SUMMARY | ~2019-01-15 | XMS | Encounter Summary ---
Demographics + + + | Address | [address] | | | [place] [address] | + + + | Home Phone [...] Team Providers + +------+ + | Care Basic Combatant Swimmer Name | Role | Phone | + [...] Description | +--------+--------+ + + + | 09/30/ | Refill | [facility] [place] | Kevin Sandoval, | Medication Refill | | 2013 | | PULMONARY [address] | MD [address] | | | | | [place], | [place] | | | | | [place] [address] | [address] | | | | | [phone] | | | +--------+--------+ + + + [...] [place] | | | | | | [id number] | | | | | | | | +--------+---------+ + + + | 11/24/ | Office | Cardiology | [place], | | | 2019 | Visit | | SINDHU Erickson [address] | | | | | | [place] | | | | | | [place] [address] | | | | | | [phone] | | | | | | | | +--------+---------+ + + + documented as of this encounter Visit Diagnoses Not on filedocumented in this encounter"
--- OUTSIDE RECORDS SUMMARY | ~2019-01-15 | XMS | Encounter Summary ---
Demographics + + + | Address | [address] | | | [place] [address] | + + + | Home Phone [...] Team Providers + +------+ + | Care Tipple Oiler Name | Role | Phone | + +------+ + | Ozzy Delcid MD | PCP | | + +------+ + Encounter Details +--------+ + + + + | Date | Type | Department | Care Team | Description | +--------+ + + + + | 12/10/ | Abstract | [facility] [place] | [place], | | | 2011 | | PULMONARY [address] | Loreta Alonso MD | | | | | [place], | | | | | | [place] [address] | | | | | | [phone] | | | +--------+ + + + + Social History + +-------+ +--------+------+ | Tobacco Use | Types | Packs/Day | Years | Date | | | | | Used | | + +-------+ +--------+------+ | Current Every Day | | 0.3 | 30 | | | Smoker | | | | | + +-------+ +--------+------+ + + +---------+ + | Alcohol Use [...] [place] | | | | | | [address] | | | | | | | | +--------+---------+ + + + | 11/24/ | Office | Cardiology | [place], | | | 2019 | Visit | | SINDHU Erickson [address] | | | | | | [place], | | | | | | [place] [address] | | | | | | [phone] | | | | | | | | +--------+---------+ + + + documented as of this encounter Visit Diagnoses Not on filedocumented in this encounter"
--- OUTSIDE RECORDS SUMMARY | ~2019-01-15 | XMS | Encounter Summary ---
Demographics + + + | Address | [address] | | | [place] [address] | + + + | Home Phone [...] Team Providers + +------+ + | Care Larriman Helper Name | Role | Phone | + +------+ + PCP | Unavailable | + +------+ + Encounter Details +--------+ + + + + | Date | Type | Department | Care Team | Description | +--------+ + + + + | 03/23/ | Hospital | [facility] | Rocky Rodriguez | | | 2010 | Encounter | MED CTR EMERGENCY | MD Kyler [address] | | | | | CENTER [address] | [address] [facility] | | | | | [place], [place] | [place] [address] | | | | | [address] | [phone] | | | | | [phone] | | | +--------+ + + + [...] [place] | | | | | | [address] | | | | | | | | +--------+---------+ + + + | 11/24/ | Office | Cardiology | [place], | | | 2019 | Visit | | SINDHU Erickson [address] | | | | | | [place], | | | | | | [place] [address] | | | | | | [phone] | | | | | | | | +--------+---------+ + + + documented as of this encounter Visit Diagnoses Not on filedocumented in this encounter"
--- OUTSIDE RECORDS SUMMARY | ~2019-01-15 | XMS | Encounter Summary ---
Demographics + + + | Address | [address] | | | [place] [address] | + + + | Home Phone [...] Team Providers + +------+ + | Care Clock Smith Name | Role | Phone | + [...] | | | | OP [address] | [place], [place] | | | | | [place], [place] | [address] | | | | | [address] | | | | | | [phone] | | | +--------+ + + + [...] Watson PT - [facility]11[facility]2016 10[facility] [address] [facility] [address] Cancellation/No Show Date: 06/11/2016 Patient Information Patient Name: Rosario Malik Date of : 1965 Age: 51 y.o. Reason for missed visit: Called to cancel due to illness Phone call placed: no Plan: Cont with POC (2 more appts) Electronically signed by: Lakeshia Barkley PT, 06/11/2016 10:11 Patient Name: Rosario Malik/: 1965/ [facility] Plan of Treatment +--------+---------+ + + + | Date | Type | Specialty | Care Team | Description | +--------+---------+ + + + | 03/01/ | Office | Pulmonology | Mukul Clark MD | | | 2019 | Visit | | [address] | | | | | | [place] | | | | | | [address] | | | | | | | | +--------+---------+ + + + | 11/24/ | Office | Cardiology | [place], | | | 2019 | Visit | | SINDHU Erickson [address] | | | | | | [place], | | | | | | [place] [address] | | | | | | [phone] | | | | | | | | +--------+---------+ + + + documented as of this encounter Visit Diagnoses Not on filedocumented in this encounter"
--- OUTSIDE RECORDS SUMMARY | ~2019-01-15 | XMS | Encounter Summary ---
Demographics + + + | Address | [address] | | | [place] [address] | + + + | Home Phone [...] Team Providers + +------+ + | Care Aluminum Welder Name | Role | Phone | + [...] | Concussion | Aaron Kim MD | Pan Washer Hand [address] | | | Required | | with brief | [address] | [place] | | | | | loss of | [address] | [place], [place] | | | | | consciousnes | [place], | [address] | | | | | s Word | [place] [address] | Phone: | | | | | finding | Phone: | [phone] | | | | | difficulty | [phone] | Fax: | | | | | S06.0X9A | Fax: | [phone] | | | | | (ICD-10-CM) | [phone] | | | | | | - [...] | +--------+ + + + + | 08/07/ | Hospital | [facility] | Aaron Rodriguez, | Concussion with | | 2017 | Encounter | MED CTR SPEECH | MD [address] | brief (less than one | | | | THERAPY [address] | [place], [place] | hour) loss of | | | | [place], | [address] | consciousness | | | | [place] [address] | | (Primary Dx); | | | | [phone] | Kathi Soto, | Impaired memory; | [...] | | | | | order to [facility]. | | | | | [...] | | | | send order to [facility] | | | | | | | [facility]. | | | | | | [...] | 0 | 10/13/19 | | | [id number] | mouth as needed. | | | 16 | 7 | | -Cod [id number] MG | | | | | | [...] Progress Notes Kathi Soto, Speech Pathologist - 08/08/2016 11:40 AM PDT [facility]ECH [facility]ERAP[facility] [address] [place] [address] Speech Therapy Daily Treatment Note Date: 08/07/2016 Patient Information Patient Name: Rosario Malik Date of : 1965 Age: 51 y.o. Encounter Diagnoses Code Name Primary? S06.0X9A Concussion with brief (less than one hour) loss of consciousness Yes R41.3 Impaired memory R41.842 Visuospatial deficit R47.89 Word finding difficulty Date of Onset: 03/15/2016 Referring Provider: Aaron Rodriguez MD Rehab Precautions Flowsheet Row Office Visit from 05/01/2016 in [facility] THERAPY PT OP Rehab Precautions Precautions None Rehab Learning Style Flowsheet Ayde [facility] POWER DISTRIBUTION ENGINEER OP EVAL from 05/16/2016 in [facility] SPE[facility]CH [facility]ERAP[facility] O ffice Visit from 05/01/2016 in [facility] THER[facility] PT OP Learning Style Patient's Optimum Learning Style observation, performance of task listening, reading, obs ervation, performance of task Today's Treatment Start Time: 1030 Stop time: 1115 Duration: 45 minutes Timed Treatment Codes: 45 minutes # of Speech Visits to Date: 5 Pain Assessment: Subjective:Pt arrived to ST after short break in therapy due to illness and difficulty denny ging migraines. Pt reports increased worry re: memory changes and underlying cause of memory changes. She stated increased emotional fatigue and increased difficulty communicating/reca lling details and relates this to being in stressful environment. She states family members do not allow increase time for word finding or communication breakdowns. Discussed participa tion in community groups to facilitate positive communication exchanges. Objective/Assessment: Established HEP: Journal daily events, commercial activity (recall after 30 minute episode) Discussed use of memory strategies- sent journal to support journaling,increased note salvadorin g and setting timers is working well. Is texting important information for improved recall a nd as reference. Education and training re: pausing prior to talking to organize thoughts, describing object /itme function to support word finding. Plan: Target immediate recall with list learning and story recall. Target word finding with actions/objects, and target speed with response time. Discuss/review underlying reason for deficits. Electronically signed by: Kathi Soto Speech Pathologist, 08/08/2016 14:21 Patient Name: Rosario Malik/: 1965/ docum ented in this encounter Plan of Treatment +--------+---------+ + + + | Date | Type | Specialty | Care Team | Description | +--------+---------+ + + + | 03/01/ | Office | Pulmonology | Mukul Clark MD | | | 2019 | Visit | | [address] | | | | | | [place] | | | | | | [address] | | | | | | | | +--------+---------+ + + + | 11/24/ | Office | Cardiology | [place], | | | 2019 | Visit | | SINDHU Erickson [address] | | | | | | [place], | | | | | | [place] [address] | | | | | | [phone] | | | | | | | [...]
--- OUTSIDE RECORDS SUMMARY | ~2019-01-15 | XMS | Encounter Summary ---
Demographics + + + | Address | [address] | | | [place] [address] | + + + | Home Phone [...] Team Providers + +------+ + | Care Vehicle Refinisher Name | Role | Phone | + [...] | | | | | [place] | [facility] | | | | | [address] | [place] [address] | | | | | [phone] | [phone] | | | | | | | [...] [place] | | | | | | [address] | | | | | | | | +--------+---------+ + + + | 11/24/ | Office | Cardiology | [place], | | | 2019 | Visit | | SINDHU Erickson [address] | | | | | | [place], | | | | | | [place] [address] | | | | | | [phone] | | | | | | | | +--------+---------+ + + + documented as of this encounter Visit Diagnoses Not on filedocumented in this encounter"
--- OUTSIDE RECORDS SUMMARY | ~2019-01-15 | XMS | Encounter Summary ---
Demographics + + + | Address | [address] | | | [place] [address] | + + + | Home Phone [...] Team Providers + +------+ + | Care Quality Control Assessor Name | Role | Phone | + +------+ + | Juan Cherry DO | PCP | | + +------+ + Encounter Details +--------+ + + + + | Date | Type | Department | Care Team | Description | +--------+ + + + + | 01/24/ | Orders Only | [facility] [place] | Darren Polo, | | | 2013 | | CARDIOLOGY [address] | RN | | | | | [place], | | | | | | [place] [address] | | | | | | [phone] | | | +--------+ + + + [...] Description | +--------+---------+ + + + | 01/06/ | Office | Pulmonology | Mukul Clark MD | | | 2019 | Visit | | [address] | | | | | | [place] | | | | | | [address] | | | | | | | | +--------+---------+ + + + | 11/24/ | Office | Cardiology | [place], | | | 2019 | Visit | | SINDHU Erickson [address] | | | | | | [place], | | | | | | [place] [address] | | | | | | [phone] | | | | | | | | +--------+---------+ + + + documented as of this encounter Visit Diagnoses Not on filedocumented in this encounter"
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
--- OUTSIDE RECORDS SUMMARY | ~2019-01-15 | XMS | Encounter Summary ---
Demographics + + + | Address | [address] | | | [place] [address] | + + + | Home Phone | | + + + | Preferred Language | Unknown | + + + | Marital Status | Single | + + + | Rastafarian Affiliation | [id number] | + + + | Race | Unknown | + + + | Ethnic Group | Unknown | + + + Author + + + | Author | [facility] | | | and [place] | + + + | Organization | [facility] | | [...] Team Providers + +------+ + | Care Microbiology Analyst Name | Role | Phone | + +------+ + | Juan Cherry DO | PCP | | + +------+ + Encounter Details +--------+---------+ + + + | Date | Type | Department | Care Team | Description | +--------+---------+ + + + | 10/31/ | Office | [facility] | Andriy Weber | Interstitial | | 2016 | Visit | [address] | MD [address] | cystitis (Primary | | | | [place], [place] | [address] [place] | Dx) | | | | [address] | [place] [address] | | | | | [phone] | [phone] | | | | | | | [...] Progress Notes Andriy Weber MD - 11/01/2015 10:37 AM PDTFormatting of this note might be differen t from the original. Expand All Collapse All Rosario is a 50 y.o. female patient of Juan Cherry, DO being seen today for follow-up after her first DMSO instillation. She did note some improvement for about 24 hours after her insulation, it is more recently had difficulty with initiating her urinary stream. She is not having any significant pain or urgency however. She does note that the oxybutynin tends to make her drowsy. I have asked her to try to split the Ditropan 5 mg tablets in half, and just take half a ta blet a day. For the time being, I would also like to continue her on her DMSO instillation s, since it seems to be helping her cystitis symptoms. REVIEW OF SYSTEMS: No change in review of systems otherwise. PHYSICAL EXAM Vitals: There were no vitals taken for this visit. General: Awake, alert, in no acute distress. Speech is fluent. Appears to be stated age . Lungs: Normal respiratory effort. Abdomen: Soft, nontender. Extremities: Non-edematous. Chronic leg movement present Neuro: Awake, alert, oriented. Psychiatric: Mood and affect are normal. Skin: Warm and dry. DIAGNOSTIC DATA: Urine is completely clear today IMPRESSION: Urethral stenosis, mild Bladder pain and spasm, possible interst itial cystitis Dysfunctional voiding PLAN: DMSO instillation today. I've asked her to cut down her Ditropan to 2.5 mg by mouth daily. She is to return in 2 weeks for repeat DMSO instillation. Rosario is instructed to resume her usual and customary care with her primary care provide r. This document was generated in part using voice recognition software. Although I have att empted to edit the content, I have not thoroughly proofread this note, and assembler wet wash err ors may occur. documented in th is encounter Plan of Treatment +--------+---------+ + + + | Date | Type | Specialty | Care Team | Description | +--------+---------+ + + + | 03/01/ | Office | Pulmonology | Mukul Clark MD | | | 2019 | Visit | | [address] | | | | | | [place], [place] | | | | | | [address] | | | | | | | | +--------+---------+ + + + | 11/24/ | Office | Cardiology | [place], | | | 2019 | Visit | | SIND[place] Erickson [address] | | | | | | [place], | | | | | | [place] [address] | | | | | | [phone] | | | | | | | | +--------+---------+ + + + documented as of this encounter Visit Diagnoses + + | Diagnosis | + + | Interstitial cystitis - Primary Chronic interstitial cystitis | + + documented in this encounter"
--- OUTSIDE RECORDS SUMMARY | ~2019-01-15 | XMS | Encounter Summary ---
Demographics + + + | Address | [address] | | | [place] [address] | + + + | Home Phone [...] Team Providers + +------+ + | Care Can Reforming Machine Operator Name | Role | Phone [...] | | | | OP [address] | [place] | | | | | [place] | [id number] | | | | | [address] | | | | | | [phone] | | | +--------+ + + + [...] Barkley, PT - 06/24/2016 11:10 AM PDT[facility] OP [address] [place] [address] Physical Therapy Discharge Note This discharge is [...] to discharge this patient [facility] The last progress note or the patients [...] [place] | | | | | | [address] | | | | | | | | +--------+---------+ + + + | 11/24/ | Office | Cardiology | [place], | | | 2019 | Visit | | [address] [address]ks[address] | | | | | | [place] | | | | | | [place] [address] | | | | | | [phone] | | | | | | | | +--------+---------+ + + + documented as of this encounter Visit Diagnoses Not on filedocumented in this encounter"
--- OUTSIDE RECORDS SUMMARY | ~2019-01-15 | XMS | Encounter Summary ---
Demographics + + + | Address | [address] | | | [place] [address] | + + + | Home Phone [...] Team Providers + +------+ + | Care Medic Technician Name | Role | Phone | [...] | COPD | MD Kevin | [address] | | | | | (chronic | [address] | [place], | | | | | obstructive | [place] | [place] [address] | | | | | pulmonary | [place], | Phone: | | | | | disease) | [place] [address] | [phone] | | | | | (HCC) | Phone: | Fax: | | | | | Procedures | [phone] | [phone] | | | | | CT Chest wo | Fax: | | | | | | Contrast | [phone] | | +--------+--------+ + + + + Reason for Visit +--------+ + | Reason | Comments | +--------+ + | COPD | | +--------+ + Encounter Details +--------+---------+ + + + | Date | Type | Department | Care Team | Description | +--------+---------+ + + + | 10/19/ | Office | [facility] | Kevin Sandoval, | COPD exacerbation | | 2013 | Visit | PULMONARY [address] | MD [address] | ([facility]) (Primary Dx); | | | | [place], | [place], [place] | COPD (chronic | | | | [place] [address] | [address] | obstructive | | | | [phone] | | pulmonary disease) | | | | | | ([facility]); Hypoxemia | +--------+---------+ + + + Social [...] not start to improve within 24 hours 5480-3533 Rafael Perez, [address] [place] [address], [place] [address]. All rights reserve d. This information is not intended as a substitute for professional medical care. Always fo llow your healthcare professional's instructions. documented in this encounter Progress Notes Kevin Sandoval MD - 10/19/2013 10:35 AM PDTFormatting of this note might be different f rom the original. Pulmonary Follow Up 10/19/2013 [facility] Rosario Malik is a 48 y.o. female [...] oxygen. They currently are using nocturnal oxygen. T hey are currently on 2 LPM at night. [...] COPD (chronic obstructive pulmonary disease) ([facility]) 2011 post BD FEV1 2.34, 85% 11/14/11 [...] d 99 months. Please send order to [facility] Disp: 1 each, Rfl: 0 Respiratory Therapy Supplies MISC, Change CPAP back to 11-14 cm H2O. All necessary supplies . No oxygen bleed in. Diagnosis Code(s)327.23. Length of Need: Lifetime. Please send order t bony Located Within [facility]. This is not a new [...] high dose Advair and Spiriva. The p atient was once again using a prednisone taper. [...] reassessment for her supplemental oxygen needs per [facility] care criteria. Plan 1. Complete prednisone [...] | | | | [place] | | | | | | [address] | | | | | | | | +--------+---------+ + + + | 11/24/ | Office | Cardiology | [place], | | | 2020 | Visit | | SINDHU Erickson [address] | | | | | | [place], | | | | | | [place] [address] | | | | | | [phone] | | | | | | | [...] [phone].) Dictated and Signed by: Sterling Lee MD Electronically signed: 11/16/2013 4:23 PM | | + + + + + | Procedure Note | + + | Reed, Rad Results In - 11/16/2013 4:26 PM PDT [...] + | MISCELLANEOUS LAB | | | [phone] | + +---------+ + + | MISCELANIOUS LAB | | | [phone] | + +---------+ + + documented in [...]
--- OUTSIDE RECORDS SUMMARY | ~2019-01-15 | XMS | Encounter Summary ---
Demographics + + + | Address | [address] | | | [place] [address] | + + + | Home Phone [...] Providers + +------+ + | Care Certified Medical Technician Assistant Name | Role | Phone | [...] Alonso MD | | | | | [place], | | | | | | [place] [address] | | | | | | [phone] | | | +--------+ + + + [...] [place] | | | | | | [address] | | | | | | | | +--------+---------+ + + + | 11/24/ | Office | Cardiology | [place], | | | 2019 | Visit | | SINDHU Erickson [address] | | | | | | [place], | | | | | | [place] [address] | | | | | | [phone] | | | | | | | | +--------+---------+ + + + documented as of this encounter Visit Diagnoses Not on filedocumented in this encounter"
--- OUTSIDE RECORDS SUMMARY | ~2019-01-15 | XMS | Encounter Summary ---
Demographics + + + | Address | [address] | | | [place] [address] | + + + | Home Phone [...] Team Providers + +------+ + | Care Program Proposals Coordinator Name | Role | Phone | [...] Alonso MD | | | | | [place], | | | | | | [place] [address] | | | | | | [phone] | | | +--------+ + + + [...] [place] | | | | | | [address] | | | | | | | | +--------+---------+ + + + | 11/24/ | Office | Cardiology | [place], | | | 2019 | Visit | | SINDHU Erickson [address] | | | | | | [place], | | | | | | [place] [address] | | | | | | [phone] | | | | | | | | +--------+---------+ + + + documented as of this encounter Visit Diagnoses Not on filedocumented in this encounter"
--- OUTSIDE RECORDS SUMMARY | ~2019-01-15 | XMS | Encounter Summary ---
Demographics + + + | Address | [address] | | | [place] [address] | + + + | Home Phone | | + + + | Preferred Language | Unknown | + + + | Marital Status | Single | + + + | Anabaptism Affiliation | 1041 | + + + | Race | Unknown | + + + | Ethnic Group | Unknown | + + + Author + + + | Author | [facility] | | | and [place] | + + + | Organization | [facility] | | [...] Providers + +------+ + | Care Instructional Manager Name | Role | Phone | [...] | | | | | [place] | [facility] | | | | | [address] | [place] [address] | | | | | [phone] | [phone] | | | | | | | [...] [place] | | | | | | [address] | | | | | | | | +--------+---------+ + + + | 11/24/ | Office | Cardiology | [place], | | | 2019 | Visit | | SINDHU Erickson [address] | | | | | | [place], | | | | | | [place] [address] | | | | | | [phone] | | | | | | | [...] 1.001 - 1.030 | | | | Odd, | | | | | | UA, [...]
--- OUTSIDE RECORDS SUMMARY | ~2019-01-15 | XMS | Encounter Summary ---
Demographics + + + | Address | [address] | | | [place] [address] | + + + | Home Phone [...] Team Providers + +------+ + | Care Cornice Upholsterer Name | Role | Phone | + +------+ + | Juan Cherry DO | PCP | | + +------+ + Reason for Visit + + + | Reason | Comments | + + + | Arm Laceration | | + + + Encounter Details +--------+ + + + + | Date | Type | Department | Care Team | Description | +--------+ + + + + | 07/18/ | Emergency | [facility] | Ozzy Aponte | Laceration of left | | 2013 | | [facility] | Ozzie Kebede MD | upper arm without | | | | CENTER [address] | [address] | foreign body, | | | | [place] | [place] | initial encounter | | | | [address] | [phone] | (Primary Dx) | | | | [phone] | | | +--------+ + + + [...] + + + | Blood Pressure | 101/70 | 07/18/2013 12:10 PM | | | | | PDT | | + + + + + | Pulse | 87 | 07/18/2013 12:10 PM | | | | | PDT | | + + + + + | Temperature | 36.6 C (97.8 F) | 07/18/2013 12:10 PM | | | | | PDT | | + + + + + | Respiratory Rate | 18 | 07/18/2013 12:10 PM | | | | | PDT | | + + + + + | Oxygen Saturation | 92% | 07/18/2013 12:10 PM | | | | | PDT | | + + + + + | Inhaled Oxygen | - | - | | | Concentration | | | | + + + + + | Weight | 68.9 kg (152 lb) | 07/18/2013 12:10 PM | | | | | PDT | | + + + + + | Height | 157.5 cm (5' 2") | 07/18/2013 12:10 PM | | | | | PDT | | + + + + + | Body Mass Index | 27.8 | 07/18/2013 12:10 PM | | | | | PDT | | + + + + + documented in this encounter Discharge Instructions Instructions Ozzy Aponte MD - 07/18/2013Return for worsening redness, swel ling, pain, inflammation or pustular drainage. Return for a wound recheck in 2-3 days if yo u are at all concerned your wound is not healing correctly. You should follow-up in medical clinic. documented in this encounter Medications at Time [...] | | | | | order to [facility]. | | | | | [...] | | | | | | | [facility]. | | | | | [...] + + + +---------+ + + | azithromycin | Take 2 tablets by | 6 | 0 | 07/15/19 | | | (ZITHROMAX) 250 mg | mouth daily x 1 day, | tablet | | 14 | 4 | | tablet | then take 1 tablet | | | | | | | by mouth daily x 4 | | | | | | | days. | | | | | + + + +---------+ + + | cephalexin | Take 1 capsule by | 30 | 0 | 07/19/19 | | | (KEFLEX) 500 mg | mouth 4 times daily | capsule | | 14 | 4 | | capsule | for 10 days. | | | | | + [...] +---------+ + + | predniSONE | Take 3 tablets by | 24 | 0 | 07/16/19 | | | (DELTASONE) 10 mg | mouth daily for 4 | tablet | | 14 | 4 | | tabletIndications: | days. Decrease by 1 | | | | | | COPD exacerbation | tab every three | | | | | | (HCC) | days till taper is | | | | | | | complete. | | | | | + + [...] CONTENTS OF | 30 | 0 | 07/07/19 | | | 18 MCG inhalation | [...] [place] | | | | | | [id number] | | | | | | | | +--------+---------+ + + + | 11/24/ | Office | Cardiology | [place], | | | 2019 | Visit | | SINDHU Erickson [address] | | | | | | [place], | | | | | | [place] [address] | | | | | | [phone] | | | | | | | | +--------+---------+ + + + documented as of this encounter Procedures + +--------+ + + + | Procedure Name | Priori | Date/Time | Associated Diagnosis | Comments | | | ty | | | | + +--------+ + + + | ED INFORMATION | Routin | 07/18/2013 | | Results for this | | EXCHANGE | e | 12:04 PM | | procedure are in the | | | | PDT | | results section. | + +--------+ + + + documented in this encounter Results ED INFORMATION EXCHANGE (07/18/2013 12:04 PM PDT) + + | Specimen | + + | | + + + + + | Narrative | Performed At | + + + | VISIT TRACKING (3 MO.) Visit Date Location | [facility] | | Type Diagnoses | | | -------- | | | ---- 07/18/2013 12:04 [place] | | | [facility] Emergency cut on Lft arm; | | | 07/14/2013 00:15 [facility] | | | Emergency Shortness of Breath; | | | | | | Chronic obstructive asthma with (acute) exacerbation; | | | 06/19/2013 21:06 [facility] | | | Emergency Obstructive chronic bronchitis with (acute) | | | exacerbation; | | | Shortness of | | | Breath; | | | diff breathing; | | | 06/19/2013 11:03 [facility] | | | Emergency COPD exasperation; 05/23/2013 19:52 [place] | | | [facility] Emergency Obstructive chronic | | | bronchitis with (acute) exacerbation; | | | | | | Obstructive chronic bronchitis with (acute) exacerbation; | | | | | | sob; | | | | | | Shortness of Breath; VISIT COUNT (1 YR.) Visits | | | Medicaid [place] Dx Location ------ | | | --------- 11 0 [facility]. | | | [facility] 11 0 Total | | | Note: Visits indicate total known visits. [place] Dx are the | | | number of primary diagnoses on the [facility]'s non-emergent dx list. | | [...] + | Diagnosis | + + | Laceration of left upper arm without foreign body, initial encounter - Primary | + + documented in this encounter Administered Medications + +--------+ +---------+------+ + | Medication Order | MAR | Action | Dose | Rate | Site | | | Action | Date | | | | + +--------+ +---------+------+ + | [id number] | Given | 07/19/19 | 0.5 mLs | | Deltoid- | | pertussis (ADACEL, Tdap) vaccine | | 14 1:32 | | | Left | | injection 0.5 mL 0.5 mL, | | PM PDT | | | | | Intramuscular, ONCE, 07/18/13 | | | | | | | at 1345, For 1 dose, Keep in | | | | | | | refrigerator. Give patient | | | | | | | education information., | | | | | | + +--------+ +---------+------+ + +---+---+ | | | +---+---+ documented in this encounter
--- OUTSIDE RECORDS SUMMARY | ~2019-01-15 | XMS | Encounter Summary ---
Demographics + + + | Address | [address] | | | [place] [address] | + + + | Home Phone | | + + + | Preferred Language | Unknown | + + + | Marital Status | Single | + + + | Roman Catholic Affiliation | 1041 | + + + [...] Team Providers + +------+ + | Care Cloth Dyeing Range Tender Name | Role | Phone | + +------+ + | Juan Cherry DO | PCP | | + +------+ + Encounter Details +--------+---------+ + + + | Date | Type | Department | Care Team | Description | +--------+---------+ + + + | 10/22/ | Office | [facility] | Jared Mcdonough, | Chronic obstructive | | 2017 | Visit | [facility] | [address] | pulmonary disease, | | | | REHABILITATION [address] | [place], | unspecified COPD | | | | [address] [place] | [place] [address] | type (HCC) (Primary | | | | [place] [address] | [phone] | Dx); Mild persistent | | | | [phone] | | asthma without | | | [...] | | | | | | [place] [address] | | | | | | [phone] | | | | | | | [...]
--- OUTSIDE RECORDS SUMMARY | ~2019-01-15 | XMS | Encounter Summary ---
Demographics + + + | Address | [address] | | | [place] [address] | + + + | Home Phone [...] Providers + +------+ + | Care Technical Proposal Writer Name | Role | Phone | [...] | | | | [facility] | [address] | [address] | | | | | EXERCISE | [place], | [place] | | | | | | [place] [address] | [place], [place] | | | | | | Phone: | [address] | | | | | | [phone] | Phone: | | | | | | Fax: | [phone] | | | | | | [phone] | Fax: | | | | | | | [phone] | +--------+--------+ + + + + Encounter Details +--------+---------+ + + + | Date | Type | Department | Care Team | Description | +--------+---------+ + + + | 07/09/ | Office | [facility] | Jared Mcdonough, | Chronic obstructive | | 2017 | Visit | [facility] | [address] | pulmonary disease, | | | | REHABILITATION [address] | [address] [place], | unspecified COPD | | | | [address] [place] | [place] [address] | type (HCC) (Primary | | | | [place] [address] | [phone] | Dx); Pulmonary | | | | [phone] | | emphysema, | | | | [...] this encounter Progress Notes Desean Chris - 07/09/2016 3:14 PM PDTPatient tolerated exercise session without any [...] [place] | | | | | | [address] | | | | | | | | +--------+---------+ + + + | 11/24/ | Office | Cardiology | [place], | | | 2019 | Visit | | SINDHU Erickson [address] | | | | | | [place], | | | | | | [place] [address] | | | | | | [phone] | | | | | | | | +--------+---------+ + + + documented as of this encounter Visit Diagnoses + + | Diagnosis | + + | Chronic obstructive pulmonary disease, unspecified COPD type (HCC) - Primary | + + | Pulmonary emphysema, unspecified emphysema type (HCC) | + + documented in this encounter"
--- OUTSIDE RECORDS SUMMARY | ~2019-01-15 | XMS | Encounter Summary ---
Demographics + + + | Address | [address] | | | [place] [address] | + + + | Home Phone [...] Providers + +------+ + | Care Manager Zone Name | Role | Phone | + +------+ + | Juan Cherry DO | PCP | | + +------+ + Encounter Details +--------+ + + + + | Date | Type | Department | Care Team | Description | +--------+ + + + + | 11/06/ | Hospital | [facility] | Juan Cherry, | Pituitary mass (HCC) | | 2014 | Encounter | [facility] | DO [address] [facility] | | | | | [address] [place] | [place], [place] | | | | | [place], [place] | [address] | | | | | [address] | [phone] | | | | | [phone] | | | | | | | Shashi Segovia | | | | | | MD Miryam Need updated | | | | | | address [...] | | | | | | | [facility]. | | | | | | [...] cefuroxime | Take 1 tablet by | 28 | 0 | 11/04/19 | | | (CEFTIN) 250 mg | mouth 2 times daily | tablet | | 14 | 4 | | tablet | for 14 days. [...] predniSONE | Take 4 tablets by | 30 | 0 | 11/04/19 | | | (DELTASONE) 10 mg | mouth daily for 3 | tablet | | 14 | 4 | | tablet | days then decrease | | | | | | | by 1 tablet every 3 | | | | | | [...] +---------+ + + | rizatriptan | Take 10 mg by mouth | | 0 | | | | (MAXALT) 10 mg | as needed. May | | | | 4 | | tablet | repeat in 2 hours if | | | [...] CONTENTS OF | 30 | 0 | 11/01/19 | | | 18 MCG inhalation | ONE CAPSULE VIA | capsule | | 14 | 4 | | capsule | HANDIHALER EVERY DAY | | | | | + + + +---------+ + + | SUMAtriptan | Take 1 tablet by | 9 | 4 | 10/20/19 | | | (IMITREX) 50 mg | mouth as needed for | tablet | | 14 | 4 | | tabletIndications: | Migraine (Take at | | | | | | Migraines | onset of headache). | | | | | + + [...] [place] | | | | | | [address] | | | | | | | | +--------+---------+ + + + | 11/24/ | Office | Cardiology | [place], | | | 2020 | Visit | | SINDHU Erickson [address] | | | | | | [place], | | | | | | [place] [address] | | | | | | [phone] | | | | | | | | +--------+---------+ + + + documented as of this encounter Procedures + +--------+ + + + | Procedure Name | Priori | Date/Time | Associated Diagnosis | Comments | | | ty | | | | + +--------+ + + + | CORTISOL, FREE, | Routin | 11/06/2013 | Pituitary mass | Results for this | | URINE, 24HR | e | 11:00 AM | ([facility]) | procedure are in the | | | | PDT | | results section. | + +--------+ + + + documented in this encounter Results Cortisol, Free, Urine, 24Hr [...] REFERENCE | | | Volume | Performed: [facility], [address] 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 | | | | | | [address], [place] | | | | | | [id number] Performed: | | | | | | [facility], [address], | | | | | | [place] [address] | | | | + + + + + + + + | Specimen | + + | Urine specimen | | (specimen) | + + + + + + + | Performing | Address | City/State/Zipcode | Phone Number | | Organization | | | | + + + + + | REFERENCE [facility] | 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
--- OUTSIDE RECORDS SUMMARY | ~2019-01-15 | XMS | Encounter Summary ---
Demographics + + + | Address | [address] | | | [place] [address] | + + + | Home Phone [...] Team Providers + +------+ + | Care Tube Pusher Name | Role | Phone | + +------+ + | Juan Cherry DO | PCP | | + +------+ + Reason for Visit + + + | Reason | Comments | + + + | Hand Pain | Exam 3/ right hand pain since 05/29/17 | + + + Encounter Details +--------+---------+ + + + | Date | Type | Department | Care Team | Description | +--------+---------+ + + + | 05/30/ | Office | [facility] | Guru Henao | Acute pain of right | | 2018 | Visit | CARE [address] | MD Aleyda [address] | wrist (Primary Dx); | | | | [place] | [place] | Osteoarthritis of | | | | [address] | [address] | first | | | | [phone] | | carpometacarpal | | | | | | (CMC) joint of one | | | | | | hand | +--------+---------+ + + + Social History [...] + + + | Blood Pressure | 107/53 | 05/30/2017 8:10 AM | | | | | PDT | | + + + + + | Pulse | 86 | 05/30/2017 8:10 AM | | | | | PDT | | + + + + + | Temperature | 36.3 C (97.4 F) | 05/30/2017 8:10 AM | | | | | PDT | | + + + + + | Respiratory Rate | 17 | 05/30/2017 8:10 AM | | | | | PDT | | + + + + + | Oxygen Saturation | 95% | 05/30/2017 8:10 AM | | | | | PDT | | + + + + + | Inhaled Oxygen | - | - | | | Concentration | | | | + + + + + | Weight | 77.3 kg (170 lb 6.7 | 05/30/2017 8:10 AM | | | | oz) | PDT | | + + + + + | Height | 157.5 cm (5' 2") | 05/30/2017 8:10 AM | | | | | PDT | | + + + + + | Body Mass Index | 31.17 | 05/30/2017 8:10 AM | | | | | PDT [...] of this encounter Patient Instructions Patient Instructions Guru Henao MD - 05/30/2017 8:15 AM PDTTake Medrol Dosepak as directed until gone. Wear the thumb spica splint on your right hand, removing it only tube, for the next 5 days, then as needed. Apply ice to the base of her right thumb for 15 minutes at a time as needed for pain and sw elling. Avoid tight gripping and grasping using the right hand until pain resolves. Continue prednisone at the current dose for your lung disease. Return with any persistent, new or progressive associated symptoms. What Is Basal Joint Arthritis? Arthritis is a disease that causes inflammation, pain, and stiffness in the joints. The dis ease gradually gets worse. It often affects the joint at the base of the thumb (basal joint) . Basal joint arthritis is most common in women over 40, but anyone can get it. Often it hap pens in both thumbs. Causes Basal joint arthritis occurs as a result of wear and tear on the joint. It is commonly call ed osteoarthritis or degenerative arthritis. It is more likely to occur and happen at a marlo jason age if you have broken or injured your thumb. Repeatedly gripping, twisting, or turning objects with the thumb and fingers may make the arthritis worse. Inside your thumb The basal joint is formed by one of the wrist bones (trapezium) and the first of the 3 bone s in the thumb (first metacarpal). This joint allows the thumb to move and to pinch with the fingers. When arthritis occurs in the basal joint, it slowly destroys the joint. Arthritis irritates or destroys the joint The ends of the bones are covered with cartilage. This covering acts like a cushion. This l ets the bones move smoothly. Arthritis wears away or destroys the cartilage. Then the bones rub against each other when you move your thumb. This causes the joint to become stiff, infl billy, and painful. This makes pinching and grasping with the thumb and fingers painful. With time, the bone in the thumb may collapse. Then you can no longer straighten your thumb. Symptoms The most common symptom is pain in the lower part of the thumb. You may feel pain when you lift something with the thumb and fingers, unscrew a jar lid, pulp mill supervisor an object, or turn a door handle or a mccallum. You may find yourself dropping things. Weather may also make the thumb sage t. The joint may swell. With time the thumb may become stiff or deformed. Date Last Reviewed: 06/24/[id number] [employer]. [address] [place] [address]. All righ ts reserved. This information is not intended as a substitute for professional medical care. Always follow your healthcare professional's instructions. documented in this encounter Progress Notes Jayce Ya, Director Of Rehabilitation - 05/30/2017 8:15 AM PDTVerified name and date of of patient before provider orders were carried out. The patient was informed that her insurance may or may not pay for part or all of the DME a nd that she could contact their insurance company prior to getting the DME. The patient chos e to accept financial responsibility for the DME. A right thumb spica splint was placed and made comfortable for the patient. She was instructed on how to put it on and do the straps f or comfort. She understands.The DME form was signed by the patient. The patient was comforta ble upon leaving the clinic. David Ya CMA chdanielt Guru ross MD - 05/30/2017 8:15 AM PDTFormatting of this note might be different from t zachariah original. Subjective: Chief Complaint: Hand Pain (Exam 3/ right hand pain since 05/29/17) Rosario is a 52 y.o. female who comes in complaining of acute, recurrent pain at the right wrist and the base of her right thumb since yesterday. History of degenerative arthritis o f the wrist and hand previously treated with cortisone shots in the base of her thumb interm ittently over the last 4-5 years. Yesterday, after cleaning her bird cage with her right ledezma nd, she developed excruciating pain at the base of the thumb with little movement. Slightly better today. She's been taking Tylenol every 4-6 hours and using BenGay with partial impr ovement. She denies any falls or trauma to the hand. She is on tramadol for fibromyalgia a nd is allergic to NSAIDs. She is not interested in narcotic analgesics. Has borderline audrey betes mellitus on metformin and does not check her blood sugar and has not had a recent A1c. Last blood sugar here in February was 108. Fever, chills, nausea or vomiting. She is on 1 0 mg of prednisone daily for oxygen dependent COPD. She refuses bump in her prednisone due to insurance issues with her prednisone prescription. She denies fever, chills, red streaki ng or pain in other joints. History of prior similar injury. No other complaints. Patient's medications, allergies, past medical, surgical, social and family histories were reviewed and updated as appropriate. Objective: BP 107/53 | Pulse 86 | Temp 36.3 C (97.4 F) (Temporal) | Resp 17 | Ht 1.575 m (5' 2 ") | Wt 77.3 kg (170 lb 6.7 oz) | SpO2 95% | ? No | BMI 31.17 kg/m General Appearance: Alert, cooperative, no distress, appears stated age Musculoskeletal: Inspection of the right wrist and hand reveals mild induration and warmth over the right first CMC joint which is tender to touch. Active and passive range of motion of the right thumb reproduces localized pain. No abrasion, ecchymosis, fluctuance, ulcerat ion or purulent drainage. Active and passive range of motion of the right wrist is complete and unremarkable. No tenderness or inflammation along the extensor pollicis tendon sheaths on the dorsum of the wrist. Right thumb MCP and IP joints are nontender. She opens and cl oses the remaining digits of the hand completely without discomfort. Neurovascular: Light touch sensation and capillary refill intact throughout the right hand. Intact right radial pulse. Assessment and Plans: 1. Acute pain of right wrist methylPREDNISolone (MEDROL DOSEPAK) 4 mg tablet 2. Osteoarthritis of first carpometacarpal (CMC) joint of one hand Acute flare of chronic right first CMC osteoarthritis associated with recent repetitive mov ements. Thumb spica splint was placed and she was given the following instructions and pres cription. Plan: Take Medrol Dosepak as directed until gone. Wear the thumb spica splint on your right hand, removing it only tube, for the next 5 days, then as needed. Apply ice to the base of her right thumb for 15 minutes at a time as needed for pain and sw elling. Avoid tight gripping and grasping using the right hand until pain resolves. Continue prednisone at the current dose for your lung disease. Return with any persistent, new or progressive associated symptoms. Guru BlkaefMMiryam documented in th is encounter Plan of [...] ASHLEY | | | | | | [phone] | | | | | | | | +--------+---------+ + + + | 11/24/ | Office | Cardiology | [place], | | | 2019 | Visit | | SINDHU Erickson [address] | | | | | [place], | | | | | | [place] [address] | | | | | | [phone] | | | | | | | | +--------+---------+ + + + documented as of this encounter Visit Diagnoses + + | Diagnosis | + + | Acute pain of right wrist - Primary | + + | Osteoarthritis of first carpometacarpal (CMC) joint of one hand | + + documented in this encounter
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
--- OUTSIDE RECORDS SUMMARY | ~2019-01-15 | XMS | Encounter Summary ---
Demographics + + + | Address | [address] | | | [place] [address] | + + + | Home Phone | | + + + | Preferred Language | Unknown | + + + | Marital Status | Single | + + + | Catholic Affiliation | [phone] | + + [...] Team Providers + +------+ + | Care Belt Loop Maker Name | Role | Phone | + +------+ + | Juan Cherry DO | PCP | | + +------+ + Encounter Details +--------+ + + + + | Date | Type | Department | Care Team | Description | +--------+ + + + + | 09/09/ | Hospital | [facility] | Conversion | Pain | | 2015 | Encounter | CONVERSION [address] | Transaction, | | | | | [address] | Provider Unknown | | | | | [place], [place] | [phone] | | | | | [address] | | | | | | [phone] | | | +--------+ + + + [...] | | | | | order to [facility]. | | | | | + [...] | | | | send order to [facility] | | | | | | | [facility]. | | | | | | | [...] | | | | [place] [address] [place] [facility] | | | | | | [address] | | | | | | | | +--------+---------+ + + + | 11/24/ | Office | Cardiology | [place], | | | 2019 | Visit | | SINDHU Erickson [address] | | | | | | [place], | | | | | | [place] [address] | | | | | | [phone] | | | | | | | [...]
--- OUTSIDE RECORDS SUMMARY | ~2019-01-15 | XMS | Encounter Summary ---
Demographics + + + | Address | [address] | | | [place] [address] | + + + | Home Phone [...] Team Providers + +------+ + | Care Mason Liner Name | Role | Phone | + [...] | | | | | pulmonary | [address] | [address] | | | | | disease, | [place], | [place] | | | | | unspecified | [place] [address] | [place], [place] | | | | | COPD type | Phone: | [address] | | | | | (HCC) | [phone] | Phone: | | | | | Pulmonary | Fax: | [phone] | | | | | emphysema, | [phone] | Fax: | | | | | unspecified | | [phone] | | | | | emphysema | | | | | | | type ([facility]) | | | +--------+ + + + + + Encounter Details +--------+---------+ + + + | Date | Type | Department | Care Team | Description | +--------+---------+ + + + | 05/23/ | Office | [facility] | Sharonda Delmycaitie, | Chronic obstructive | | 2017 | Visit | [facility]AC | [address] | pulmonary disease, | | | | REHABILITATION [address] | [address] [place], | unspecified COPD | | | | [address] [place] | [place] [address] | type (HCC) (Primary | | | | [place] [address] | [phone] | Dx) | | | | [phone] | | | +--------+---------+ + + + [...] + documented as of this encounter Progress Desean Wheeler - 05/23/2016 3:07 PM PDT [facility] CARDIAC REHABILITATION [address] [place] [address] Cardiac Rehab Date: 05/23/2016 Patient Information Patient Name: Rosario Malik Date of : 1965 Age: 51 y.o. Encounter Diagnoses Code Name Primary? J44.9 Chronic obstructive pulmonary disease, unspecified COPD type (HCC) Yes Number of Visits Approved: 10 (7) Taken Medications Today? Yes Any Changes in Medications? No Any Problems to Report? No Pain Level? 0/10 Fall Risk/Liquid Oxygen Denies any adverse symptoms during exercise. Sinus rhythm without ectopy. SBP with small rise during exertion. Compliant with medications and therapeutic lifestyle changes. Continue monitored exercise. Any abnormal vital signs or rhythm strips will be reported in progress note. Electronically signed by: Desean Chris, 05/23/2016 15:08 Patient Name: Rosario Malik/: 1965/ documented in [...] [place] | | | | | | [id number] | | | | | | | | +--------+---------+ + + + | 11/24/ | Office | Cardiology | [place], | | | 2019 | Visit | | SINDHU Erickson [address] | | | | | | [place], | | | | | | [place] [address] | | | | | | [phone] | | | | | | | | +--------+---------+ + + + documented as of this encounter Visit Diagnoses + + | Diagnosis | + + | Chronic obstructive pulmonary disease, unspecified COPD type (HCC) - Primary | + + documented in this encounter"
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
--- OUTSIDE RECORDS SUMMARY | ~2019-01-15 | XMS | Encounter Summary ---
Demographics + + + | Address | [address] | | | [place] [address] | + + + | Home Phone [...] Team Providers + +------+ + | Care Auditing Specialist Name | Role | Phone | + +------+ + | Juan Cherry DO | PCP | | + +------+ + Reason for Visit +--------+ + | Reason | Comments | +--------+ + | Apnea | | +--------+ + Evaluate & Treat (Routine) +--------+ + + + + + | Status | Reason | Specialty | Diagnoses / | Referred By | Referred To | | | | | Procedures | Contact | Contact | +--------+ + + + + + | Closed | Specialty | Sleep | Diagnoses | | [facility] | | | Services | Medicine | GARRY | Off[place], | [facility] | | | Required | | (obstructive | Loreta B, | Disorder [address] | | | | | sleep | MD [address] | | | | | apnea) | [address] | [place], | | | | | Central | [place], | [place] [address] | | | | | sleep apnea | [place] [address] | Phone: | | | | | | | [phone] | | | | | | | Fax: | | | | | | | [phone] | +--------+ + + + + + Encounter Details +--------+---------+ + + + | Date | Type | Department | Care Team | Description | +--------+---------+ + + + | 04/07/ | Office | [facility] | Maxim Delgado PA | GARRY on CPAP (Primary | | 2012 | Visit | SLEEP DISORDER [address] | [address] | Dx); Organic | | | | [address] [place] | [place], [place] | insomnia, | | | | [place] [address] | [address] | unspecified | | | | [phone] | | | +--------+---------+ + + + [...] + + + | Blood Pressure | 104/64 | 04/07/2012 9:35 AM | | | | | PST | | + + + + + | Pulse | 73 | 04/07/2012 9:35 AM | | | | | PST | | + + + + + | Temperature | - | - | | + + + + + | Respiratory Rate | 14 | 04/07/2012 9:35 AM | | | | | PST | | + + + + + | Oxygen Saturation | - | - | | + + + + + | Inhaled Oxygen | - | - | | | Concentration | | | | + + + + + | Weight | 59.8 kg (131 lb 14.4 | 04/07/2012 9:35 AM | | | | oz) | PST | | + + + + + | Height | - | - | | + + + + + | Body Mass Index | 23.73 | 03/26/2012 1:11 PM | | | | | PST | | + + + + + documented in this encounter Progress Notes Maxim Delgado PA - 04/07/2012 9:34 AM PST Subjective: Patient ID: Rosario Malik is a 47 y.o. female. HPI last office visit was: 08/22/2011 date of polysomnography: 10/15/2011 AHI: 47.1 RDI: 53.4 Machine type: ResMed S9 with full face mask obtained from: [facility] pressure is: 8-12 cm 95%: 11.9 cm maxium: 11.9 cm CPAP download shows CPAP useage # nights: 08/30 average usage (all nights): 2:45 4:18 average usage (nights used): 2:45 4:18 Rosario comes in for CPAP compliance and insomnia follow up. She is wearing her CPAP on a nightly basis. She is still napping at times, but she is not napping as often, they are not as long as they used to be and she is wearing her CPAP during her naps more often. She has been able to sleep for longer durations at night. When she wakes during the night, she has been able to get back to sleep more quickly. She is very excited about her progress and is feeling more rested during the day. Her main challenge with her CPAP has been the hole in her hose. She can hear the air leaki ng from it, but wasn't sure if her insurance would replace it. Her hose is about five month s old and is replaceable every three months. She has also had problems with her mask leakin g. We gave her a Respironics full face mask to use at her last visit. She went to get that mask from [facility], but it has been discontinued. The mask she got instead has a significant l eak. I have discussed the download in detail. This shows that her sleep apnea is somewhat contro lled, with an AHI of 15.1. This is likely a result of the leak from the hole in her hose an d the leak from her mask. Review of Systems Objective: Physical Exam Assessment: Problem #1: OBSTRUCTIVE SLEEP APNEA (327.23) Her CPAP compliance is going pretty well. She is still not using her CPAP for 100% of her sleep, but has improved significantly. Her leaks are severe, due to a hole in her hose and a poor mask fit. 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 She is to replace her heated hose and get a mask that gives her a better fit. 2. She is to continue to work towards getting her sleep at night. I will follow up again in 3 months, sooner prn. Fifteen minutes were spent [id number]-wnmy, wi th the majority of time spent in counseling. Maxim Delgado PA-C cc: Juan Cherry DO documented in this enco unter Plan [...] [place] | | | | | | [address] | | | | | | | | +--------+---------+ + + + | 11/24/ | Office | Cardiology | [place], | | | 2019 | Visit | | SINDHU [address] | | | | | | [place] | | | | | | [place] [address] | | | | | | [phone] | | | | | | | | +--------+---------+ + + + documented as of this encounter Visit Diagnoses + + | Diagnosis | + + | GARRY on CPAP - Primary Obstructive sleep apnea (adult) (pediatric) | + + | Organic insomnia, unspecified | + + documented in this encounter"
--- OUTSIDE RECORDS SUMMARY | ~2019-01-15 | XMS | Encounter Summary ---
Demographics + + + | Address | [address] | | | [place] [address] | + + + | Home Phone [...] Providers + +------+ + | Care Gang Pusher Name | Role | Phone | + +------+ + | Juan Cherry DO | PCP | | + +------+ + Reason for Visit + + + | Reason | Comments | + + + | Follow-up | | + + + | Atrial Fibrillation | | + + + | Palpitations | | + + + Encounter Details +--------+---------+ + + + | Date | Type | Department | Care Team | Description | +--------+---------+ + + + | 12/23/ | Office | [facility] | [place], | Palpitations; | | 2019 | Visit | CARDIOLOGY [address] | SINDHU Erickson [address] | Paroxysmal atrial | | | | [place], | [place], | tachycardia (HCC); | | | | [place] [address] | [place] [address] | Pericarditis, | | | | [phone] | [phone] | unspecified | | | | | [...] | | | | | | type; Hypotension | | | | | | due to medication | +--------+---------+ + + + Social History + + + +--------+ + | Tobacco Use | Types | Packs/Day | Years | Date | | | | | Used | | + + + +--------+ + | Current Every Day | Cigarettes | 0.3 | 30 | Quit: 06/03/2018 | | Smoker | | | | | + + + +--------+ + + [...] Instructions Patient Instructions Georgina Tanner ARNP - 12/23/2018 11:45 AM PDT1. Discontinue Metop rolol 2. Let us know if any issues documented in this encounter Progress Notes Georgina Tanner ARNP - 12/23/2018 11:45 AM PDTFormatting of this note might be differen t from the original. PATIENT NAME: Rosario Malik : 1965: AGE: 53 y.o. PRIMARY CARE: Juan Cherry DO OUTPATIENT FOLLOW UP VISIT Date of Service: 12/23/2018 HISTORY OF PRESENT ILLNESS: Rosario Malik is a 53 y.o. female with a history of non-cardiac chest pain, inappropria te atrial tachycardia, paroxysmal atrial tachycardia with palpitations, emphysema, hypothyro idism obstructive sleep apnea and nocturnal hypoxemia and bipolar disorder. She is being se en today for follow up palpitations and paroxysmal atrial tachycardia. She was last seen 03/10/2018 at which time the current medical regimen is effective; contin ue present plan and medications. She will continue with metoprolol instead of propanolol. Evangelista russell will follow up in 6 months for office visit, or sooner with concerns. She will have fast ing labs prior to visit for lipid profile, CMP and CBC, if not done prior by another provide r. Since that time, she saw Dr. Escalera in the sleep center on 07/02/18 for a follow up on her sl eep apnea. On 10/14/2018 she had a follow up with her PCP for insomnia, no medication changes , COPD and anxiety, no medication changes. She has had a good energy level. She tries to stay active. She has not had any chest niles n or discomfort at rest or with exertion. She has not noticed shortness of breath. She ledezma s lightheadedness with her blood pressure has been going low. Her PCP agreed to d/c digoxin and still is low. . She has noticed that her palpitations have improved. She has not had l eg swelling. She sleeps on 2 pillows at night, which is her norm, and does not wake up at n ight feeling short of breath. She sleeps with BiPAP machine in place nightly with oxygen bl ed in at 2-3 liters per minute. MEDICAL, SURGICAL, AND PERSONAL HISTORY Past Medical, Surgical, Family, and Social History are reviewed in EPIC. CURRENT PROBLEMS Patient Active Problem List Diagnosis Hypothyroidism Posttraumatic stress disorder Asthma, moderate persistent Anxiety disorder Bipolar disorder Fibromyalgia Insomnia Central sleep apnea COPD (chronic obstructive pulmonary disease) Healthcare maintenance Preventative health care Obstructive sleep apnea on CPAP Multiple personality disorder GERD (gastroesophageal reflux disease) Diverticulosis Insomnia Sprain of chest wall Benign neoplasm of pituitary gland and craniopharyngeal duct (pouch) Status post total hysterectomy Irritable colon Hypoxemia Allergic rhinitis Palpitations Paroxysmal atrial tachycardia Pulmonary emphysema Migraine Pericarditis Chest pain Abnormal stress test Syncope Interstitial cystitis (chronic) without hematuria Dizziness Impaired mobility and activities of daily living Concussion with brief (less than one hour) loss of consciousness Intractable acute post-traumatic headache Hypotension due to medication Generalized weakness CMC DJD(carpometacarpal degenerative joint disease), localized primary Pituitary adenoma Asthma exacerbation Diverticulitis of colon (without mention of hemorrhage)(562.11) Galactorrhea associated with childbirth Increased prolactin level Irritable bowel syndrome Lung nodule S/P MILES-BSO (total abdominal hysterectomy and bilateral salpingo-oophorectomy) CURRENT MEDICATIONS Current Outpatient Medications Medication Sig Dispense Refill Albuterol Sulfate (VENTOLIN HFA IN) Inhale 2 puffs into the lungs 2 times daily. digoxin (LANOXIN) 125 mcg tablet Take 1 tablet by mouth Daily. 90 tablet 3 fluticasone (FLONASE) 50 mcg/nasal spray 1 spray by Nasal route Daily. fluticasone-salmeterol (ADVAIR HFA) 230-21 MCG/ACT inhaler Inhale 2 puffs into the lung s 2 times daily. gabapentin (NEURONTIN) 800 MG tablet Take 800 mg by mouth 3 times daily. HYDROcodone-acetaminophen (NORCO) 10-325 mg per tablet Take 1-2 tablets by mouth every 6 hours as needed for Pain. 30 tablet 0 HYDROcodone-acetaminophen (NORCO) 5-325 mg per tablet HYDROcodone-acetaminophen (NORCO) 7.5-325 mg per tablet hydrOXYzine hydrochloride (ATARAX) 25 mg tablet Take 1 tablet by mouth Daily. levothyroxine (SYNTHROID) 75 MCG tablet Take 1 tablet by mouth every morning (before br eakfast). 90 tablet 3 metFORMIN (GLUCOPHAGE) 500 mg tablet Take 500 mg by mouth 2 times daily (with breakfast & dinner). 3 metoprolol tartrate (LOPRESSOR) 25 mg tablet Take 0.5 tablets by mouth 2 times daily. 9 0 tablet 3 ondansetron (ZOFRAN ODT) 4 mg disintegrating tablet Take 4 mg by mouth Every 6 hours as needed. oxybutynin (DITROPAN) 5 mg tablet Take 5 mg by mouth Daily. oxygen Inhale into the lungs continuous. 3 liters while awake pantoprazole (PROTONIX) 40 mg tablet TAKE ONE TABLET BY MOUTH EVERY DAY IN THE MORNING WITH BREAKFAST 90 tablet 0 potassium chloride (KLOR-CON M20) 20 mEq ER tablet Take 1 tablet by mouth Daily. 90 tab let 3 predniSONE (DELTASONE) 10 mg tablet Take 10 mg by mouth Daily. Respiratory Therapy Supplies [facility] Please provide patient with necessary CPAP supplies ( she did not specify, okay to send order as appropriate) Diagnosis Code(s)327.23 . Length of Need 99 months. Please send order to [facility]. 1 each 0 Respiratory Therapy Supplies [facility] Change CPAP back to 11-14 cm H2O. All necessary suppl ies. No oxygen bleed in. Diagnosis Code(s)327.23. Length of Need: Lifetime. Please send orde r to [facility]. This is not a new order, just a change in settings. 1 each 99 roflumilast (DALIRESP) 500 mcg tablet Take 1 tablet by mouth Daily. 30 tablet 3 SUMAtriptan (IMITREX) 100 mg tablet Take 100 mg by mouth as needed for Migraine. traMADol (ULTRAM) 50 mg tablet Take 50 mg by mouth 4 times daily. 0 VENTOLIN HFA 108 (90 Base) MCG/ACT inhaler ziprasidone (GEODON) 80 MG capsule Take 80 mg by mouth 2 times daily. Current Facility-Administered Medications Medication Dose Route Frequency Provider Last Rate Last Dose sodium bicarbonate 1 mEq/mL injection 10 mEq 10 mL Other Weekly Yinka Melendez D 10 mEq at 07/24/17 1058 triamcinolone acetonide (KENALOG-40) 40 mg/mL injection 40 mg 40 mg Other Weekly Andriy Weber MD 40 mg at 07/24/17 1058 ALLERGIES Allergies Allergen Reactions Erythromycin Base Other (See Comments) Bloating and swelling, lips swell Onion Anaphylaxis Artificial Sweetners [Sucralose] Other (See Comments) Migraine Doxycycline Hives Macrolides And Ketolides Hives Meperidine Other (See Comments) Panic attacks Nsaids Hives and Rash Pork Allergy Other (See Comments) GI distress Erythromycin Unknown Pork-Derived Products Unknown ROS Review of Systems Constitutional: Negative for malaise/fatigue. Respiratory: Negative for shortness of breath. Cardiovascular: Negative for chest pain, palpitations and leg swelling. Neurological: Negative for dizziness and weakness. Endo/Heme/Allergies: Does not bruise/bleed easily. OBJECTIVE: PHYSICAL EXAM BP (!) 80/50 | Pulse 60 | Resp 16 | Ht 1.549 m (5' 1") | Wt 64.5 kg (142 lb 3.2 oz) | BMI 26.87 kg/m Physical Exam Constitutional: She is oriented [...] displaced. Exam reveals no gallop and no friction r ub. No murmur heard. Pulses: Carotid pulses are [...] orders placed or performed in visit on 09/07/2018 ECG 12 lead Result Value Ref Range INTERPRETATION TEXT Sinus rhythm with premature supraventricular complexes heart rate 60 bpm LAB RESULTS reviewed during visit today primarily from [facility]: LIPID Lab Results Component Value Date CHOLHDL 4.0 10/28/2017 LDLEX 88 10/28/2017 HDLEX 50 10/28/2017 TRIGEX 277 (A) 10/28/2017 CHOLEX 194 10/28/2017 CHEMISTRY Lab Results Component Value Date GLU 129 (H) 01/09/2018 GLUEX 148 (A) 09/29/2018 NA 140 01/09/2018 NAEX 134 (A) 09/29/2018 K 3.7 01/09/2018 KEX 4.5 09/29/2018 CL 106 01/09/2018 CLEX 104 09/29/2018 CO2 26 01/09/2018 CO2EX 20 (A) 09/29/2018 CALCIUM 8.8 01/09/2018 ALKPHOS 70 2018 AST 38 2018 ASTEX 33 09/29/2018 ALT 17 2018 ALTEX 14 09/29/2018 BILITOT 0.6 2018 CREA 0.61 01/09/2018 BUN 4 (L) 01/09/2018 EGFR >60 03/22/2013 EGFREX 60 09/29/2018 CREEX 0.7 09/29/2018 HEMATOLOGY Lab Results Component Value Date WBC 8.4 01/09/2018 WBCEX 14.0 (A) 06/10/2017 HGB 11.9 01/09/2018 HGBEX 13.2 06/10/2017 HCT 37.5 01/09/2018 HCTEX 39.6 06/10/2017 PLT 400 01/09/2018 PLTEX 507 (A) 06/10/2017 Lab Results Component Value Date TSH 1.00 2018 TSHEX 0.920 07/28/2013 BNP 45 2018 I reviewed records from PCP for office visit on 08/17/18 which is summarized in the HPI RESULTS- I reviewed reports from [facility]: Above data and testing is reviewed this [...] and v entricular function done at the [facility]. LVEF 78%. C. Holter Monitor 08/16/13 [...] dated 01/14/14, no significant interval change. J.Today, 12/23/2018, she feels palpitations are well controlled on current monalisa men. She continues with Metoprolol but having no palpitations and low blood is. Patient has lost a lot of weight and is in a new lifestyle. She is in class I of the [employer] [facility] sociation functional class. 2. Hypotensionsecondary to medication: A. Her propranolol was decreased 06/2017 due to hypotension. B. Today, 12/23/2018, her blood pressure is hypotensive. 3. Hypokalemia: A. Noted on labs in [...] She was seen at the ED of [facility] 3 weeks ago and again 1 [...] othly contoured coronary arteries, LVEF 60%. D.Today, 12/23/2018, patient states that she has had no episodes of chest pain. 3.Emphysema/COPD:Not otherwise addressed today 12/23/2018. A. She is on oxygen. 4. Hypothyroidism. Not otherwise addressed today 12/23/2018. 5. Obstructive sleep apnea and nocturnal hypoxemia. Not otherwise addressed today 9. A. She is utilizing BiPAP with no oxygen. 6. Pre-diabetes: Not otherwise addressed today 12/23/2018. A. She is on metformin. 7. Fibromyalgia per the patient report. Not otherwise addressed today 12/23/2018. A. She notes that taking mag ox in the past "flared up" her fibromy algia. Will be checking magnesium due to her hypokalemia, and if it is also low, will look a t trying an alternate formation of potassium. PLAN: 1. Discontinue Metoprolol 2. Start Magnesium oxide 400 mg once daily 3. She will follow up in 1 year for office visit, or sooner with concerns. She will have an ECG at her follow up visit and She will have fasting labs prior to visit for lipid profil e, CMP and CBC, if not done prior by another provider. iLzy Vásquez, Director Personal am acting as a scribe on behalf of, and in the presenc e of SINDHU Vang. - Lizy Nieot Director Personal 12/23/2018 14:27 I, SINDHU Vang, personally performed the services described in this documentati on, as scribed in my presence and it is both accurate and complete. -SINDHU Vang 12/23/2018 Portions of this chart may have been created with [employer] voice recognition software. Occasi onal wrong-word or [...] [place] | | | | | | [address] | | | | | | | | +--------+---------+ + + + | 11/24/ | Office | Cardiology | [place], | | | 2019 | Visit | | SINDHU Erickson [address] | | | | | | [place], | | | | | | [place] [address] | | | | | | [phone] | | | | | | | | +--------+---------+ + + + documented as of this encounter Procedures + +--------+ + + + | Procedure Name | Priori | Date/Time | Associated Diagnosis | Comments | | | ty | | | | + +--------+ + + + | ECG 12 LEAD | Routin | 12/23/2018 | Palpitations | Results for this | | | e | 12:00 PM | Paroxysmal atrial | procedure are in the | | | | PDT | tachycardia (HCC) | results section. | | | | | Chest pain, | | | | | | unspecified type | | + +--------+ + + + documented in this encounter Results ECG 12 lead (12/23/2018 12:00 PM PDT) + + + + + + | Component | Value | Ref Range | Performed | Pathologist | | | | | At | Signature | + + + + + + | VENTRICULAR | 60 | BPM | [facility] | | | RATE EKG | | | | | + + + + + + | ATRIAL RATE | 60 | BPM | [facility] | | + + + + + + | P-R | 128 | ms | [facility] | | | INTERVAL | | | | | + + + + + + | QRS | 78 | ms | [facility] | | | DURATION | | | | | + + + + + + | Q-T | 454 | ms | [facility] | | | INTERVAL | | | | | + + + + + + | Q-T | 454 | ms | [facility] | | | INTERVAL | | | | | | (CORRECTED) | | | | | + + + + + + | P WAVE AXIS | 58 | degrees | [facility] | | + + + + + + | QRS AXIS | 53 | degrees | [facility] | | + + + + + + | T AXIS | 60 | degrees | [facility] | | + + + + + + | INTERPRETAT | Sinus rhythm with | | [facility] | | | ION TEXT | premature | | | | | | supraventricular | | | | | | complexesOtherwise | | | | | | normal ECGWhen compared | | | | | | with ECG of 10-MAR-2018 | | | | | | 11:34,premature | | | | | | supraventricular | | | | | | complexes are now | | | | | | presentVent. rate has | | | | | | decreased BY 40 | | | | | | BPMConfirmed by | | | | | | CLAY MCDONOUGH MD | | | | | | ([id number]) on 12/23/2018 | | | | | | 12:45:11 PM | | | | + + [...] | Diagnosis | + + | Palpitations | + + | Paroxysmal atrial tachycardia (HCC) Paroxysmal supraventricular tachycardia | + + | Pericarditis, unspecified chronicity, unspecified type | + + | Chest pain, unspecified type | + + | Abnormal stress test Other nonspecific abnormal cardiovascular system function study | + + | Syncope, unspecified syncope type | + + | Hypotension due to medication | + + documented in this encounter
--- OUTSIDE RECORDS SUMMARY | ~2019-01-15 | XMS | Encounter Summary ---
Demographics + + + | Address | [address] | | | [place] [address] | + + + | Home Phone [...] Providers + +------+ + | Care Senior Gamemaster Name | Role | Phone | + [...] + + | 11/04/ | Office | [facility] | Daryl Hargrove | Axillary abscess | | 2015 | Visit | CARE [address] | Ernie Sanabria MD | (Primary Dx) | | | | [place], [place] | [address] | | | | | [address] | [place] [facility] [place] | | | | | [phone] | [address] | | | | | [...] | | | | | | [place] [address] | | | | | | [phone] | | | | | | | [...] [address] | [place] | [phone] | | [facility] | | [address] | | | - LABORATORY | | | | + + + + + documented in this encounter Visit Diagnoses + + | Diagnosis | + + | Axillary abscess - Primary Cellulitis and abscess of upper arm and forearm | + + documented in this encounter
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
--- OUTSIDE RECORDS SUMMARY | ~2019-01-15 | XMS | Encounter Summary ---
Demographics + + + | Address | [address] | | | [place] [address] | + + + | Home Phone [...] + + + | Author | [facility] | | | and [place] | + + + | Organization | [facility] | | | [...] Team Providers + +------+ + | Care Grinder Operator Tool Name | Role | Phone | + +------+ + | Juan Cherry DO | PCP | | + +------+ + Reason for Visit + + + | Reason | Comments | + + + | Appointment | | + + + Encounter Details +--------+ + + + + | Date | Type | Department | Care Team | Description | +--------+ + + + + | 06/11/ | Telephone | [facility] | Andriy Weber | Appointment | | 2018 | | [address] | MD [address] | | | | | [place] | [facility] | | | | | [address] | [place] [address] | | | | | [phone] | [phone] | | | | | | | [...] [place] | | | | | | [address] | | | | | | | | +--------+---------+ + + + | 11/24/ | Office | Cardiology | [place], | | | 2019 | Visit | | SINDHU Erickson [address] | | | | | | [place] | | | | | | [place] [address] | | | | | | [phone] | | | | | | | | +--------+---------+ + + + documented as of this encounter Visit Diagnoses Not on filedocumented in this encounter"
--- OUTSIDE RECORDS SUMMARY | ~2019-01-15 | XMS | Encounter Summary ---
Demographics + + + | Address | [address] | | | [place] [address] | + + + | Home Phone [...] Team Providers + +------+ + | Care Applications Programmer Analyst Name | Role | Phone [...] MD | symptoms) | | | | [place], | | | | | | [place] [address] | | | | | | [phone] | | | +--------+ + + + [...] | | | | | | [place] [address] | | | | | | [phone] | | | | | | | | +--------+---------+ + + + documented as of this encounter Visit Diagnoses Not on filedocumented in this encounter"
--- OUTSIDE RECORDS SUMMARY | ~2019-01-15 | XMS | Encounter Summary ---
Demographics + + + | Address | [address] | | | [place] [address] | + + + | Home Phone [...] Team Providers + +------+ + | Care Stone Planer Name | Role | Phone | + [...] | Support | [address] | [address] | | | | | [place] | [place] | | | | | [address] | [address] | | | | | [phone] | | | +--------+ + + + [...] + documented as of this encounter Progress Virgen Rosales RN - 07/28/2017 2:30 PM PDTPatient presents [...] for evaluation. [facility]. documented in this encounter Plan of Treatment +--------+---------+ + + + | Date | Type | Specialty | Care Team | Description | +--------+---------+ + + + | 03/01/ | Office | Pulmonology | Mukul Clark MD | | | 2019 | Visit | | [address] | | | | | | [place] | | | | | | [address] | | | | | | | | +--------+---------+ + + + | 11/24/ | Office | Cardiology | [place], | | | 2019 | Visit | | SINDHU Erickson [address] | | | | | | [place] | | | | | [place] [address] | | | | | | [phone] | | | | | | | [...] + + + + | SQUAMOUS | 0-2 | 0 - 2 /LPF | [facility] | [facility] | | | | [facility] - | | | | | | LABORATORY | | + + + + + + | BACTERIA [facility] | Negative | Negative /HPF | [facility] [...] [address] | [place] | [phone] | | [facility] | | [address] | | | - LABORATORY | | | | + + + + + POCT Urinalysis Dipstick Automated (07/28/2017 2:51 PM PDT) + + + + + + | Component | Value | Ref Range | Performed | Pathologist | | | | | At | Signature | + + + + + + | Color, UA, | [place] (A) | Yellow, Light | | | [...] 1.001 - 1.030 | | | | [place], | | | | | | [facility], [...]
--- OUTSIDE RECORDS SUMMARY | ~2019-01-15 | XMS | Encounter Summary ---
Demographics + + + | Address | [address] | | | [place] [address] | + + + | Home Phone [...] Team Providers + +------+ + | Care Store Stocker Name | Role | Phone | + [...] | RN | | | | | [place], | | | | | | [place] [address] | | | | | | [phone] | | | +--------+ + + + [...] | | | | [place] | | | | | | [address] | | | | | | | | +--------+---------+ + + + | 11/24/ | Office | Cardiology | [place], | | | 2019 | Visit | | SINDHU Erickson [address] | | | | | | [place], | | | | | | [place] [address] | | | | | | [phone] | | | | | | | | +--------+---------+ + + + documented as of this encounter Visit Diagnoses Not on filedocumented in this encounter"
--- OUTSIDE RECORDS SUMMARY | ~2019-01-15 | XMS | Encounter Summary ---
Demographics + + + | Address | [address] | | | [place] [address] | + + + | Home Phone [...] Team Providers + +------+ + | Care Tank Inspector Name | Role | Phone | [...] | Concussion | Aaron Kim MD | Games Manager [address] | | | Required | | with brief | [address] | [place] | | | | | loss of | [address] | [place], [place] | | | | | consciousnes | [place], | [address] | | | | | s Word | [place] [address] | Phone: | | | | | finding | Phone: | [phone] | | | | | difficulty | [phone] | Fax: | | | | | S06.0X9A | Fax: | [phone] | | | | | (ICD-10-CM) | [phone] | | | | | | - [...] + + | 05/23/ | Hospital | [facility] | Aaron Rodriguez, | Concussion with | | 2017 | Encounter | MED CTR SPEECH | MD [address] | brief (less than one | | | | THERAPY [address] | [place], [place] | hour) loss of | | | | [place], | [address] | consciousness | | | | [place] [address] | | (Primary Dx); | | | | [phone] | Kathi Soto, | Impaired memory; | [...] | | | | send order to [facility] | | | | | | | [facility]. | | | | | | | [...] | | | | | | | ([facility]) | | | | | | + + + +---------+ + + | | Take 1 capsule by | | 0 | 10/13/19 | | | Tcrhyugkxc-XDAR-Gbin | mouth as needed. | | | 16 | 7 | | -Cod [id number] MG | | | | | | [...] | | | | | | | ([facility]) | | | | | | [...] Speech Pathologist - 05/23/2016 7:06 PM PDT [facility]APY [address] [facility] [address] [facility] Therapy Daily Treatment Note Date: 05/23/2016 Patient Information Patient Name: Rosario Malik Date of : 1965 Age: 51 y.o. Encounter Diagnoses Code Name Primary? S06.0X9A Concussion with brief (less than one hour) loss of consciousness Yes R41.3 Impaired memory R41.842 Visuospatial deficit R47.89 Word finding difficulty Date of Onset: 03/15/2016 Referring Provider: Aaron Rodriguez MD Rehab Precautions Office Visit from 05/01/2016 in [facility] THERAPY PT OP Rehab Precautions Precautions None Rehab Learning Style [employer] STRUCTURAL ENGINEERING PROJECT MANAGER OP EVAL from 05/16/2016 in [facility] SPEECH THERAPY Office V isit from 05/01/2016 in [facility] THERAPY PT OP Learning Style Patient's [...] | | | | [place], [place] | | | | | | [id number] | | | | | | | | +--------+---------+ + + + | 11/24/ | Office | Cardiology | [place], | | | 2019 | Visit | | GeorginaSINDHU [address] | | | | | | [place], | | | | | | [place] [address] | | | | | | [phone] | | | | | | | [...]
--- OUTSIDE RECORDS SUMMARY | ~2019-01-15 | XMS | Encounter Summary ---
Demographics + + + | Address | [address] | | | [place] [address] | + + + | Home Phone | | + + + | Preferred Language | Unknown | + + + | Marital Status | Single | + + + | Catholic Affiliation | 1041 | + + + | Race | Unknown | + + + | Ethnic Group | Unknown | + + + Author + + + | Author | [facility] | | | and [place] | + + + | Organization | [facility] | | [...] Team Providers + +------+ + | Care Horse Groomer Name | Role | Phone | + +------+ + | Juan Cherry DO | PCP | | + +------+ + Encounter Details +--------+ + + + + | Date | Type | Department | Care Team | Description | +--------+ + + + + | 11/21/ | Hospital | [facility] | Andriy Weber | Interstitial | | 2016 | Encounter | MED CTR OR INTRA OP | MD [address] | cystitis (chronic) | | | | [address] | [facility]OM [facility] | without hematuria | | | | [place], [place] | [place] [address] | (Primary Dx) | | | | [address] | [phone] | | | | | [phone] | | | +--------+ + + + [...] + + + | Blood Pressure | 113/53 | 11/22/2015 10:15 AM | | | | | PDT | | + + + + + | Pulse | 84 | 11/22/2015 10:15 AM | | | | | PDT | | + + + + + | Temperature | 36.5 C (97.7 F) | 11/22/2015 8:23 AM | | | | | PDT | | + + + + + | Respiratory Rate | 13 | 11/22/2015 9:30 AM | | | | | PDT | | + + + + + | Oxygen Saturation | 97% | 11/22/2015 10:15 AM | | | | | PDT | | + + + + + | Inhaled Oxygen | - | - | | | Concentration | | | | + + + + + | Weight | 81.3 kg (179 lb 4.8 | 11/22/2015 6:14 AM | | | | oz) | PDT | | + + + + + | Height | 157.5 cm (5' 2") | 11/22/2015 6:14 AM | | | | | PDT | | + + + + + | Body Mass Index | 32.79 | 11/22/2015 6:14 AM | | | | | PDT [...] as of this encounter Discharge Instructions Instructions Chanda Padilla RN - 11/22/2015 Transurethral Bladder Biopsy Transurethral bladder biopsy is done to help find the cause of a bladder problem, such as b ladder cancer. During the procedure, small tissue samples are taken from the inside of your bladder. The samples are then tested in a lab. This sheet explains how the procedure is done . Preparing for the procedure Prepare as you have been told. In addition: Tell your healthcare provider about all medicines you take. This includes herbs and othe r supplements. It also includes any blood thinners, such as warfarin, clopidogrel, or daily aspirin. You may need to stop taking some or all of them before surgery. Your healthcare pro vider may tell you to stop aspirin several days before the procedure. Your healthcare providers may tell you not to eat or drink during the hours before your procedure. (If you have been instructed to take medicines, take them with a small sip of jayson er.) The day of the procedure The procedure takes about 30 to 45 minutes. You ll likely go home the same day. Before the procedure begins What to expect before the procedure: An IV line is put into a vein in your arm or hand. This line supplies fluids and medicin es (such as antibiotics). To keep you free of pain during the procedure, you might be given general anesthesia. Th is medicine puts you into a state like deep sleep. Or you may be given spinal anesthesia. Th is medicine numbs only your body from the waist down. In some cases, local anesthesia is use d. This medicine numbs only the area being treated. During the procedure What to expect during the procedure: A special tool called a cystoscope (scope) is used. The scope is a thin, lighted tube wi th a tiny lens on the end to see inside the bladder. The healthcare provider inserts this th rough the urethra into the bladder. Water is sent through the scope to fill the bladder. This stretches the bladder to give the healthcare provider a better view. A small surgical tool is passed through the scope into the bladder. Samples of tissue ar e then removed from the bladder. An electric tool may be used to stop any bleeding. When the procedure is complete, all tools are removed and the bladder is drained. A thin tube (Mendez catheter) may be placed in your bladder to drain urine while the blad willow heals. After the procedure You ll be taken to a room to rest until the anesthesia wears off. If a breathing tube was used, your throat might be sore at first. You might be given medicines to manage pain and p revent infection. After a few hours, you ll be released to go home. Have an adult family m ember or friend ready to drive you. Recovering at home Once you re home, be as active as you comfortably can. Get up and walk around, but avoid exercise or heavy activities until you feel better. You can likely return to your normal rou joycelyn in 1 to 2 days. If you go home with a catheter, care for it as directed. And follow any special instructions your healthcare provider gave you. Call the healthcare provider Contact your healthcare provider if you have any of the following: Chest pain or trouble breathing (call 911 or other emergency service) A fever of 100.4F (38C)or higher Pain that s not controlled with medicine Trouble urinating or inability to urinate Bloody urine for more than 48 hours Follow-up You ll have a follow-up visit with your healthcare provider in about 7 days. During this visit, your healthcare provider will discuss the results of your biopsy. You and your health care provider will also discuss any treatments that might be needed. Risks and possible complications These include: Pain or burning when urinating for a day or so after the procedure Bleeding or blood in the urine Infection Damage to the bladder wall (may require temporary catheter drainage or further repair) Narrowing of the urethra Risks of anesthesia (the anesthesiologist will discuss these with you) [phone] [employer]. [address] [place] [address]. All righ ts reserved. This information is not intended as a substitute for professional medical care. Always follow your healthcare professional's instructions. documented in this encounter Medications at Time [...] | | | | | order to [facility]. | | | | | + [...] | | | send order to [facility] | | | | | | | [facility]. | | | | | | | [...] | 0 | 10/13/19 | | | Tuybghadiy-QRRM-Lfjj | mouth as needed. | | | 16 | 7 | | -Cod [id number] MG | | | | | | [...] documented as of this encounter Progress Notes Cindy Ochoa RN - 11/21/2015 10:25 AM PDTPre op call done on 11/13/15Electronically s igned by Cindy Ochoa RN at 11/21/2015 10:25 AM PDTdocumented in this encounter Plan of Treatment +--------+---------+ + + + | Date | Type | Specialty | Care Team | Description | +--------+---------+ + + + | 03/01/ | Office | Pulmonology | Mukul Clark MD | | | 2019 | Visit | | [address] | | | | | | [facility] [place] | | | | | | [address] | | | | | | | | +--------+---------+ + + + | 11/24/ | Office | Cardiology | [place], | | | 2019 | Visit | | SINDHU Erickson [address] | | | | | | [place], | | | | | | [place] [address] | | | | | | [phone] | | | | | | | | +--------+---------+ + + + documented as of this encounter Procedures + +--------+ + + + | Procedure Name | Priori | Date/Time | Associated Diagnosis | Comments | | | ty | | | | + +--------+ + + + | CYSTOSCOPY TRANS | | 11/22/2015 | Chronic | | | URETHRAL RESECTION | | 7:22 AM | interstitial | | | BLADDER TUMOR | | PDT | cystitis without | | | | | | hematuria Chronic | | | | | | nonspecific cystitis | | + +--------+ + + + +---+--------+ | | | | | Specia | | | l | | | Needs | | | | | | Hydroc | | | ortiso | | | ne at | | | time | | | of | | | surger | | | y | +---+--------+ + +--------+ +---+ + | POC GLUCOSE | Routin | 11/22/2015 | | Results for this | | | e | 7:09 AM | | procedure are in the | | | | PDT | | results section. | + +--------+ +---+ + | SURGICAL PATHOLOGY | Routin | 11/22/2015 | | Results for this | | EXAM | e | 12:00 AM | | procedure are in the | | | | PDT | | results section. | + +--------+ +---+ + documented in this encounter Results POC Glucose (11/22/2015 7:09 AM PDT) + +-------+ + + + | Component | Value | Ref Range | Performed | Pathologist | | | | | At | Signature | + +-------+ + + + | Glucose, | 101 | 70 - 150 mg/dL | [facility] | | | POC [...] ST. | [address] | [place] | [phone] | | [facility] | | [address] | | | - LABORATORY | | | | + + + + + Surgical Pathology Exam (11/22/2015 12:00 AM PDT) + + | Specimen | + + | | + + + + + | Narrative | Performed At | + + + | SPECIMEN(S): A POSTERIOR [place] URINARY BLADDER BIOPSY SPECIMEN(S): B | [facility] | | RIGHT [place] URINARY BLADDER BIOPSY SPECIMEN(S): C LEFT [place] URINARY | [facility] | | BLADDER BIOPSY SPECIMEN SOURCE: A. POSTERIOR [place] URINARY BLADDER | | | BIOPSY B. RIGHT [place] URINARY BLADDER BIOPSY C. LEFT [place] URINARY | | | BLADDER BIOPSY CLINICAL HISTORY: N30.10 (Interstitial cystitis | | | (chronic) without hematuria) FINAL PATHOLOGIC DIAGNOSIS: A. | | | Posterior bladder wall, biopsy: - Benign urothelial mucosa with | | | focal mild chronic mucosal inflammation. B. Right wall urinary | | | bladder biopsy: - Benign urothelial mucosa with focal mild chronic | | | mucosal inflammation. C. Left wall urinary bladder biopsy: - | | | Benign urothelial mucosa with focal mild chronic mucosal | | | inflammation. JVR:[facility]:C2NR GROSS DESCRIPTION: The specimen is | | | received in three parts. A. The specimen is labeled and | | | designated "Rosario Malik, posterior bladder wall". Received | | | in formalin is one pink colored tissue fragment, it measures 0.25 x | | | 0.4 cm. all into (A1). B. The specimen is labeled and designated | | | "Rosario Malik, right bladder wall". Received in formalin is | | | one pink colored tissue fragment, 0.3 x 0.3 cm, all into (B1). C. | | | The specimen is labeled and designated "Rosario Malik, left | | | bladder wall". Received in formalin is one pink colored tissue | | | fragment, it measures 0.3 x 0.3 cm, all into (C1). yt:CLR:[facility] | | | MICROSCOPIC EXAMINATION: Histologic sections of all submitted blocks | | | are examined by light microscopy. These findings, together with the | | | gross examination, support the pathologic diagnosis. PERFORMING | | | LABORATORY: Tissue processing and slide preparation were performed by | | | [facility], [address], [place] [address] | | | (Butter Printer: Kale Estrella M.D.; CLIA#: [id number]). | | | Professional interpretation was performed by [facility], | | | Merged With [facility], [address] | | | [place] [address] (Butter Printer: Kale Estrella M.D.; CLIA#: | | | [id number]). Diagnostician: Kale Estrella MD Pathologist | | | Electronically Signed 11/23/2015 | | + + + + +---------+ + + | Performing | Address | City/State/Zipcode | Phone Number | | Organization | | | | + +---------+ + + | [facility] | | | | | [facility] | | | | + +---------+ + + documented in this encounter Visit Diagnoses + + | Diagnosis | + + | Interstitial cystitis (chronic) without hematuria - Primary | + + documented in this encounter Administered Medications + +--------+ +--------+------+------+ | Medication Order | MAR | Action | Dose | Rate | Site | | | Action | Date | | | | + +--------+ +--------+------+------+ | albuterol 2.5 mg/3 mL nebulizer | Given | 11/22/19 | 2.5 mg | | | | solution 2.5 mg 2.5 mg, | | 16 6:39 | | | | | Nebulization, ONCE PRN, Wheezing, | | AM PDT | | | | | Starting 11/22/15 at 0618, | | | | | | | For 1 dose, RT will administer., | | | | | | | Pre-op | | | | | | + +--------+ +--------+------+------+ +---+---+ | | | +---+---+ + +-------+ +---------+---+---+ | HYDROcodone-acetaminophen | Given | 11/22/19 | 2 | | | | (NORCO) 5-325 mg per tablet 1-2 | | 16 9:51 | tablets | | | | tablet 1-2 tablet, Oral, EVERY 4 | | AM PDT | | | | | HOURS PRN, Pain, Starting Fri | | | | | | | 11/22/15 at 0928, If ineffective | | | | | | | use Becket 10/325 if ordered. If | | | | | | | not tolerated, use Percocet then | | | | | | | Oxycodone if ordered., | | | | | | | Post-op/Phase II | | | | | | + +-------+ +---------+---+---+ +---+---+ | | | +---+---+ + +---------+ +---+-------+--------+ | lactated ringers (LR) infusion | New Bag | 11/22/19 | | 100 | Right | | at 10-100 mL/hr, Intravenous, | | 16 7:12 | | mL/hr | Arm | | CONTINUOUS, Starting Fri11/22/15 | | AM PDT | | | | | at 0645, TKO., Pre-op | | | | | | + +---------+ +---+-------+--------+ +---+---+ | | | +---+---+ documented in this encounter
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
--- OUTSIDE RECORDS SUMMARY | ~2019-01-15 | XMS | Encounter Summary ---
Demographics + + + | Address | [address] | | | [place] [address] | + + + | Home Phone [...] Team Providers + +------+ + | Care Occ Med Physician Name | Role | Phone | + +------+ + PCP | Unavailable | + +------+ + Encounter Details +--------+ + + + + | Date | Type | Department | Care Team | Description | +--------+ + + + + | 12/01/ | [facility] | [facility] | | | | 2008 - | Encounter | MED CTR OP REHAB | | | | | | [address] [place] | | | | 12/24/ | | [place] [address] | | | | 2008 | | [phone] | | | +--------+ + + + [...] [place] | | | | | | [address] | | | | | | | | +--------+---------+ + + + | 11/24/ | Office | Cardiology | [place], | | | 2020 | Visit | | SINDHU Erickson [address] | | | | | | [place], | | | | | | [place] [address] | | | | | | [phone] | | | | | | | | +--------+---------+ + + + documented as of this encounter Visit Diagnoses Not on filedocumented in this encounter"
--- OUTSIDE RECORDS SUMMARY | ~2019-01-15 | XMS | Encounter Summary ---
Demographics + + + | Address | [address] | | | [place] [address] | + + + | Home Phone [...] Team Providers + +------+ + | Care Sample Selector Name | Role | Phone | [...] Tachycardia | MD Jared | [address] | | | | | Procedures | [address] | [place], | | | | | ECHO | [address] | [place] | | | | | Complete | [place], | [address] | | | | | | [place] [address] | Phone: | | | | | | Phone: | [phone] | | | | | | [phone] | Fax: | | | | | | Fax: | [phone] | | | | | | [phone] | | +--------+--------+ + + + + [...] | | unspecified | [place] | [address] | | | | | HIGH PULSE | [place], [place] | [place], | | | | | - [address] | [address] | [place] [address] | | | | | Procedures | Phone: | Phone: | | | | | [place] OFFICE | [phone] | [phone] | | | | | OUTPATIENT | Fax: | Fax: | | | | | VISIT 25 | [phone] | [phone] | | | | | MINUTES | [...] CARDIOLOGY [address] | MD [address] | Dx) | | | | [address] [place], | [place], | | | | | [place] [address] | [place] [address] | | | | | [phone] | [phone] | | | | | | | [...] tachycardia. 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 [...] COPD (chronic obstructive pulmonary disease) ([facility]) Healthcare maintenance Preventative health care GARRY (obstructive sleep apnea) Multiple personality disorder GERD (gastroesophageal reflux disease) Diverticulosis Insomnia Sprain of chest wall Benign neoplasm of pituitary gland and craniopharyngeal duct (pouch) ([facility]) Status post total hysterectomy Irritable colon Hypoxemia ([facility]) Allergic rhinitis Tachycardia MEDICAL, SURGICAL, AND PERSONAL HISTORY Past Surgical History Procedure Date Hammertoe repair right sided Hiatal hernia repair Hiatal hernia Kirk and bso Ovarian cysts, not cancer Colonoscopy 03/2010 Colonoscopy 1995 [facility] Family History Problem Relation Age of [...] 1 Years of Education: 13 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 Respiratory Therapy Supplies [facility] Incentive spirometer. Please provide instructions in use. Dx: 848.8 MADELEINE: 3 months 1 each 99 Respiratory Therapy Supplies [facility] Please provide patient with necessary CPAP supplies ( she did not specify, okay to send order as appropriate) Diagnosis Code(s)327.23 . Length of Need 99 months. Please send order to [facility]. 1 each 0 Respiratory Therapy Supplies [facility] Change CPAP back to 11-14 cm H2O. All necessary suppl ies. No oxygen bleed in. Diagnosis Code(s)327.23. Length of Need: Lifetime. Please send orde r to [facility]. This is not a new [...] PLT 343 07/14/2013 I reviewed records from [facility] for office visit on 08/02/13. ASSESSMENT: 1. [...] She is in a class II of [place] [employer] functiona l class. There is [...] made to ensure accuracy; however, inadvertent computerized agent broker errors may be pre sent. Electronically signed by: Jared Mcdonough MD [facility] 08/12/2013 9:31 documented in this encounter [...] [place] | | | | | | [id number] | | | | | | | | +--------+---------+ + + + | 11/24/ | Office | Cardiology | [place], | | | 2019 | Visit | | SINDHU Erickson [address] | | | | | | [address] [place], | | | | | | [place] [address] | | | | | | [phone] | | | | | | | [...]
--- OUTSIDE RECORDS SUMMARY | ~2019-01-15 | XMS | Encounter Summary ---
Demographics + + + | Address | [address] | | | [place] [address] | + + + | Home Phone [...] Team Providers + +------+ + | Care Trench Digger Helper Name | Role | Phone | [...] | obstruction, not | | | | [place], | | elsewhere classified | | | | [place] [address] | | ([facility]) | | | | [phone] | | | +--------+ + + + [...] [place] | | | | | | [address] | | | | | | | | +--------+---------+ + + + | 11/24/ | Office | Cardiology | [place], | | | 2019 | Visit | | SINDHU Erickson [address] | | | | | | [place], | | | | | | [place] [address] | | | | | | [phone] | | | | | | | | +--------+---------+ + + + documented as of this encounter Visit Diagnoses + + | Diagnosis | + + | Chronic airway obstruction, not elsewhere classified | + + documented in this encounter"
--- OUTSIDE RECORDS SUMMARY | ~2019-01-15 | XMS | Encounter Summary ---
Demographics + + + | Address | [address] | | | [place] [address] | + + + | Home Phone [...] Phone | + + +---------+ + | Jauna Sainz | ECON | Unknown | | + + +---------+ + | Vahe Khan | ECON | Unknown | | + + +---------+ + Care Team Providers + +------+ + | Care Ethnographer Name | Role | Phone | + [...] Description | +--------+--------+ + + + | 06/27/ | Refill | [facility] [place] | [place], | Medication Refill | | 2017 | | CARDIOLOGY [address] | SINDHU Erickson [address] | | | | | [place], | [place], | | | | | [place] [address] | [place] [address] | | | | | [phone] | [phone] | | | | | | | [...] | | | | | | [place] [address] | | | | | | [phone] | | | | | | | | +--------+---------+ + + + documented as of this encounter Visit Diagnoses Not on filedocumented in this encounter"
--- OUTSIDE RECORDS SUMMARY | ~2019-01-15 | XMS | Encounter Summary ---
Demographics + + + | Address | [address] | | | [place] [address] | + + + | Home Phone [...] Team Providers + +------+ + | Care Healthcare Receptionist Name | Role | Phone | + +------+ + PCP | Unavailable | + +------+ + Encounter Details +--------+ + + + + | Date | Type | Department | Care Team | Description | +--------+ + + + + | 02/09/ | Hospital | [facility] | Alexi Guaman, | | | 2009 | Encounter | MED CTR EMERGENCY | [address] | | | | | [place] [address] | [place] | | | | | [place] | [address] | | | | | [address] | | | | | | [phone] | | | +--------+ + + + [...] [place] | | | | | | [address] | | | | | | | | +--------+---------+ + + + | 11/24/ | Office | Cardiology | [place], | | | 2019 | Visit | | SINDHU Erickson [address] | | | | | | [place], | | | | | | [place] [address] | | | | | | [phone] | | | | | | | | +--------+---------+ + + + documented as of this encounter Visit Diagnoses Not on filedocumented in this encounter"
--- OUTSIDE RECORDS SUMMARY | ~2019-01-15 | XMS | Encounter Summary ---
Demographics + + + | Address | [address] | | | [place] [address] | + + + | Home Phone [...] Team Providers + +------+ + | Care Glove Cleaner Name | Role | Phone | [...] Description | +--------+--------+ + + + | 11/27/ | Refill | [facility] [place] | [place], | Medication Refill | | 2018 | | CARDIOLOGY [address] | SINDHU Erickson [address] | | | | | [place], | [place], | | | | | [place] [address] | [place] [address] | | | | | [phone] | | | | | | | [...] | | | | | | [place] [address] | | | | | | [phone] | | | | | | | | +--------+---------+ + + + documented as of this encounter Visit Diagnoses Not on filedocumented in this encounter"
--- OUTSIDE RECORDS SUMMARY | ~2019-01-15 | XMS | Encounter Summary ---
Demographics + + + | Address | [address] | | | [place] [address] | + + + | Home Phone [...] Team Providers + +------+ + | Care Guest Service Agent Name | Role | Phone | + +------+ + | Juan Cherry DO | PCP | | + +------+ + Encounter Details +--------+ + + + + | Date | Type | Department | Care Team | Description | +--------+ + + + + | 11/21/ | Hospital | [facility] | Andriy Weber | Interstitial | | 2016 | Encounter | MED CTR OR INTRA OP | MD [address] | cystitis (chronic) | | | | [address] | [address] [facility] | without hematuria | | | | [place], [place] | [place] [address] | (Primary Dx) | | | | [address] | [phone] | | | | | [phone] | | | +--------+ + + + [...] (the anesthesiologist will discuss these with you) 3695-0462 [employer]. [address] [place] [address]. All righ ts reserved. This information is [...] [facility]. | | | | | | | [...] | | | | | ([facility]) | | | | | [...] | 0 | 10/13/19 | | | Exvnnkpepb-MAPE-Adpr | mouth as needed. | | | 16 | 7 | | -Cod [id number] MG | | | | | | [...] | | | | | ([facility]) | | | | | [...] | | | | Jose [address] [facility], [place] | | | | | | [address] | | | | | | | | +--------+---------+ + + + | 11/24/ | Office | Cardiology | [place], | | | 2019 | Visit | | SINDHU Erickson [address] | | | | | | [place], | | | | | | [place] [address] | | | | | | [phone] | | | | | | | [...] [address] | [place] | [phone] | | [facility] | | [address] | | | - LABORATORY | | [...] mild chronic mucosal | | | inflammation. JVR:[facility]:C2NR GROSS DESCRIPTION: The specimen is | | | received in three parts. A. The specimen is labeled and | | | designated "Rosario Mlaik, posterior bladder wall". Received | | | [...] 0.3 x 0.3 cm, all into (C1). yt:CLR:[facility] | | | MICROSCOPIC EXAMINATION: Histologic sections of all submitted blocks | | | are examined by light microscopy. These findings, together with the | | | gross examination, support the pathologic diagnosis. PERFORMING | | | LABORATORY: Tissue processing and slide preparation were performed by | | | [facility], [address], [place] [address] | | | (Enginehouse Brakeman: Kale Estrella M.D.; CLIA#: [id number]). | | | Professional interpretation was performed by [facility], | | | [facility], [address] | | | [place] [address] (Enginehouse Brakeman: Kale Estrella M.D.; CLIA#: | | | [id number]). Diagnostician: Kael Estrella MD Pathologist | | | Electronically [...] | | | | | | use Lengby 10/325 if ordered. If | | | [...]
--- OUTSIDE RECORDS SUMMARY | ~2019-01-15 | XMS | Encounter Summary ---
Demographics + + + | Address | [address] | | | [place] [address] | + + + | Home Phone [...] Author + + + | Author | [facility] | | | and [place] | + + + | Organization | [facility] | | [...] Providers + +------+ + | Care Strap Cutting Machine Operator Name | Role | Phone | + +------+ + | Juan Cherry DO | PCP | | + +------+ + Reason for Visit +--------+ + | Reason | Comments | +--------+ + | Other | decision to quit job | +--------+ + Encounter Details +--------+ + + + + | Date | Type | Department | Care Team | Description | +--------+ + + + + | 08/11/ | Telephone | [facility] [place] | Kevin Sandoval, | Other (decision to | | 2013 | | PULMONARY [address] | MD [address] | quit job) | | | | [place], | [place] | | | | | [place] [address] | [phone] | | | | | [phone] | | | +--------+ + + + [...] | | | | | | [place] [address] | | | | | | [phone] | | | | | | | | +--------+---------+ + + + documented as of this encounter Visit Diagnoses + + | Diagnosis | + + | Central sleep apnea Primary central sleep apnea | + + documented in this encounter"
--- OUTSIDE RECORDS SUMMARY | ~2019-01-15 | XMS | Encounter Summary ---
Demographics + + + | Address | [address] | | | [place] [address] | + + + | Home Phone [...] Team Providers + +------+ + | Care Design Inserter Name | Role | Phone | + [...] [address] | | | | [place], | [place], | | | | | [place] [address] | [place] [address] | | | | | [phone] | [phone] | | | | | | | [...] [place], | | | | | | [place] [address] | | | | | | [phone] | | | | | | | | +--------+---------+ + + + documented as of this encounter Visit Diagnoses Not on filedocumented in this encounter"
--- OUTSIDE RECORDS SUMMARY | ~2019-01-15 | XMS | Encounter Summary ---
Demographics + + + | Address | [address] | | | [place] [address] | + + + | Home Phone [...] Team Providers + +------+ + | Care Operations Intern Name | Role | Phone | [...] | | | | CENTER [address] | | carried out because | | | | [place] | | of patient's | | | | [address] | | decision (Primary | | | | [phone] | | Dx) | +--------+ + + [...] | | | | order to [facility]. | | | | | + [...] | | | | send order to [facility] | | | | | | [...] | | | | | | [place] [address] | | | | | | [phone] | | | | | | | [...] -------- | | | ---- 08/22/2013 18:46 [place] | | | [facility] Emergency COPD Exacerbation; | | | 08/13/2013 20:38 [facility] | | | Emergency Shortness of Breath; | | | | | | COPD Exasperation; | | | | | | Obstructive chronic bronchitis with (acute) exacerbation; 07/18/2013 | | | 12:06 [facility] Emergency Arm | | | Laceration; | | | Open wound of upper | | | arm, without mention of complication; | | | | | | cut on Lft arm; 07/14/2013 00:15 [facility] | | | [facility] Emergency Shortness of Breath; | | | | | | Chronic obstructive asthma with (acute) | | | exacerbation; 06/19/2013 21:06 [facility] | | | [place] [facility] Obstructive chronic bronchitis with (acute) | | | exacerbation; | | | Shortness of | | | Breath; | | | diff breathing; | | | 06/19/2013 11:03 [facility] | | | Emergency COPD exasperation; 05/23/2013 19:52 [place] | | | [facility] Emergency Obstructive chronic | | | bronchitis with (acute) exacerbation; | | | | | | Obstructive chronic bronchitis with (acute) exacerbation; | | | | | | sob; | | | | | | Shortness of Breath; VISIT COUNT (1 YR.) Visits | | | Medicaid [place] Dx Location ------ | | | --------- 13 0 [facility] | | | [facility] 13 0 Total | | | Note: Visits indicate total known visits. Medicaid [place] Dx are the | | | number of primary diagnoses on the [facility]'s non-emergent dx list. | | | | [...]
--- OUTSIDE RECORDS SUMMARY | ~2019-01-15 | XMS | Encounter Summary ---
Demographics + + + | Address | [address] | | | [place] [address] | + + + | Home Phone [...] Team Providers + +------+ + | Care Relationship Counselor Name | Role | Phone | [...] [address] | | | | | [place], | [place] | | | | | [place] [address] | [address] | | | | | [phone] | | | +--------+--------+ + + + [...] [place] | | | | | | [address] | | | | | | | | +--------+---------+ + + + | 11/24/ | Office | Cardiology | [place], | | | 2019 | Visit | | SINDHU Erickson [address] | | | | | | [place] | | | | | | [place] [address] | | | | | | [phone] | | | | | | | | +--------+---------+ + + + documented as of this encounter Visit Diagnoses Not on filedocumented in this encounter"
--- OUTSIDE RECORDS SUMMARY | ~2019-01-15 | XMS | Encounter Summary ---
Demographics + + + | Address | [address] | | | [place] [address] | + + + | Home Phone [...] Team Providers + +------+ + | Care Industrial/Organizational Psychologist Name | Role | Phone | + +------+ + | Juan Cherry DO | PCP | | + +------+ + Encounter Details +--------+ + + + + | Date | Type | Department | Care Team | Description | +--------+ + + + + | 09/09/ | Hospital | [facility] | Conversion | Pain | | 2015 | Encounter | CONVERSION [address] | Transaction, | | | | | [address] | Provider Unknown | | | | | [place], [place] | [phone] | | | | | [address] | | | | | | [phone] | | | +--------+ + + + [...] | | | | send order to [facility] | | | | | | | [facility]. | | | | | | | [...] | | | | | | | ([facility]) | | | | | [...] | | | | [place] [facility] | | | | | | [address] | | | | | | | | +--------+---------+ + + + | 11/24/ | Office | Cardiology | [place], | | | 2019 | Visit | | SINDHU Erickson [address] | | | | | | [place], | | | | | | [place] [address] | | | | | | [phone] | | | | | | | | +--------+---------+ + + + documented as of this encounter Procedures + +--------+ + + + | Procedure Name | Priori | Date/Time | Associated Diagnosis | Comments | | | ty | | | | + +--------+ + + + | XR CHEST 1 VIEW | Routin | 12/22/2012 | | Results for this | | | e | 12:50 AM | | procedure are in the | | | | PDT | | results section. | + +--------+ + + + documented in this encounter Results XR Chest 1 Vw (12/22/2012 12:50 AM PDT) + + | Specimen [...]
--- OUTSIDE RECORDS SUMMARY | ~2019-01-15 | XMS | Encounter Summary ---
Demographics + + + | Address | [address] | | | [place] [address] | + + + | Home Phone [...] Team Providers + +------+ + | Care Ladle Repairman Name | Role | Phone | + +------+ + | Juan Cherry DO | PCP | | + +------+ + Encounter Details +--------+ + + + + | Date | Type | Department | Care Team | Description | +--------+ + + + + | 12/22/ | Hospital | [facility] | Yecenia Gallegos | | | 2012 - | Encounter | [facility] | Yinka Aguirre MD [address] | | | | | [address] | [facility] | | | 12/24/ | | [place] [address] | [place] [address] | | | 2012 | | [phone] | [phone] John, | | | | | | Lucian Willoughby MD | | +--------+ + + + + [...] + documented as of this encounter Discharge Summaries Lucian Lopez MD - 12/24/2012 10:13 AM [place], [place] [address] Patient Name: JADYN SCHMITZ Provider: Lucian Lopez MD Unit #: [id number] Location: [facility] : 1965 ADMISSION DATE: 12/22/2012 DISCHARGE DATE: 12/24/2012 PRIMARY CARE PROVIDER: Juan Cherry DO. START UP SPECIALIST: Loreta London MD. DISCHARGING PHYSICIAN: Lucian Lopez MD. DISCHARGE DIAGNOSES 1. ACUTE EXACERBATION OF CHRONIC OBSTRUCTIVE PULMONARY DISEASE. IMPROVED. 2. DEPRESSION/FIBROMYALGIA. 3. HYPOTHYROIDISM. 4. OBSTRUCTIVE SLEEP APNEA. HISTORY OF PRESENT ILLNESS: Please refer to the history and physical examination note dicta kelley on 12/22. 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 She came in with shortness of breath and wheezing. She presented to the emergency depart ment and was diagnosed and treated as a case of COPD exacerbation. HOSPITAL COURSE: She was given supplemental oxygen, bronchodilators, steroids and started o n levofloxacin. Her breathing improved during the hospitalization. Today, she was weaned of f from oxygen at rest. She denies any complaints such as shortness of breath or chest pain. Home oxygen evaluation was ordered with exertion. The patient was asked to follow up with Dr. Cherry and Dr. London next week. LABORATORY DATA: CBC: WBC 14.4, hemoglobin 13.8, platelet count 315. BMP: Sodium 142, potas sium 4.1, chloride 110, bicarbonate 25, anion gap 11.1, blood urea nitrogen 17, creatinine 0.7, glucose 143, calcium 9.2. Chest radiograph performed revealed no acute findings. DISCHARGE MEDICATIONS 1. Acetaminophen 500-1000 mg p.o. every 8 hours as needed. The patient was asked not to exc eed 4 grams daily. 2. Albuterol 90 mcg puff inhalation 2 puffs inhalation q.2 hours p.r.n. 3. Albuterol 2.5 mg 1 amp inhalation q.2 as needed. 4. Cholecalciferol 1000 units p.o. daily. 5. Duloxetine 60 mg p.o. daily. 6. Fluticasone/salmeterol 1 puff inhalation twice daily. 7. Gabapentin 800 mg p.o. t.i.d. 8. Levothyroxine 75 mcg p.o. daily. 9. Multivitamin 1 tablet p.o. daily. 10. Tramadol 50 mg p.o. 4 times daily. 11. Ziprasidone 80 mg p.o. twice daily. 12. Omeprazole 20 mg p.o. daily. 13. Ipratropium 18 mcg 1 puff inhalation daily. 14. Levofloxacin 500 mg p.o. daily for 5 days. 15. Prednisone 60 mg p.o. daily from 12/24/2012 to 12/26/2012. 16. Prednisone 40 mg p.o. daily from 12/27/2012 to 12/29/2012. 17. Prednisone 20 mg p.o. daily from 12/30/2012 to 03/03/2012. 18. Prednisone 10 mg p.o. daily from 01/02/2013 to 01/04/2013. 19. Prednisone 5 mg p.o. daily from 01/05/2013 to 01/07/2013. DISPOSITION AND FOLLOWUP 1. The patient will be discharged home after home oxygen evaluation and orders will be writ ten if she requires oxygen. 2. Diet is regular. 3. Activity is as tolerated. 4. The patient was reminded to schedule an appointment and followup with Dr. Cherry next week. 5. The patient was reminded to schedule an appointment and followup with Dr. Sirena gordon on 12/28/2012. CODE STATUS: FULL CODE. It took me 50 minutes to coordinate care and discharge this patient. DICTATED BY: Lucian Lopez MD Hospitalist JOB #: [id number] EXT JOB #:[id number] EDITED: 12/27/2012 07:16 <<Signature on File>> Lucian Lopez MD 12/27/12 0726 < documented in this encounter Medications at Time [...] | | | send order to [facility] | | | | | | [...] [place] | | | | | | [place] [address] | | | | | | [phone] | | | | | | | | +--------+---------+ + + + documented as of this encounter Procedures + +--------+ + + + | Procedure Name | Priori | Date/Time | Associated Diagnosis | Comments | | | ty | | | | + +--------+ + + + | CBC WITH | Routin | 12/24/2012 | | Results for this | | DIFFERENTIAL | e | 6:39 AM | | procedure are in the | | | | PDT | | results section. | + +--------+ + + + | BASIC METABOLIC | Routin | 12/24/2012 | | Results for this | | PANEL | e | 6:39 AM | | procedure are in the | | | | PDT | | results section. | + +--------+ + + + | CBC WITH | Routin | 12/23/2012 | | Results for this | | DIFFERENTIAL | e | 6:44 AM | | procedure are in the | | | | PDT | | results section. | + +--------+ + + + | BASIC METABOLIC | Routin | 12/23/2012 | | Results for this | | PANEL | e | 6:44 AM | | procedure are in the | | | | PDT | | results section. | + +--------+ + + + | XR CHEST AP PORTABLE | Routin | 12/22/2012 | | Results for this | | | e | 12:40 PM | | procedure are in the | | | | PDT | | results section. | + +--------+ + + + | CBC WITH | Routin | 12/22/2012 | | Results for this | | DIFFERENTIAL | e | 11:52 AM | | procedure are in the | | | | PDT | | results section. | + +--------+ + + + | COMPREHENSIVE | Routin | 12/22/2012 | | Results for this | | METABOLIC PANEL | e | 11:52 AM | | procedure are in the | | | | PDT | | results section. | + +--------+ + + + documented in this encounter Results CBC with Differential (12/24/2012 6:39 AM PDT) + + + + + [...] + + + + | WBC | 14.4 (H) | 4.0 - 11.0 K/uL | [facility] | | | | | [facility] | | | | | [facility] | | | [facility] - | | | | | | LABORATORY | | + + + + + + | RBC | 4.57 | 3.70 - 5.20 | [facility] | | | | | M/uL | [facility] | | | | | | [facility] | | | | | | [facility] - | | | | | | LABORATORY | | + + + + + + | Hemoglobin | 13.8 | 11.5 - 16.0 | [facility] | | | | | gm/dL | [facility] | | | | | | [facility] | | | | | | [facility] - | | | | | | LABORATORY | | + + + + + + | Hematocrit | 40.5 | 34.0 - 47.0 % | [facility] | | | | | | [facility] | | | | | | [facility] | | | | | | [facility] - | | | | | | LABORATORY | | + + + + + + | MCV | 88.7 | 83.0 - 101.0 fL | [facility] | | | | | | [facility] | | | | | | [facility] | | | | | | [facility] - | | | | | | LABORATORY | | + + + + + + | MCH | 30.3 | 28.0 - 35.0 pg | [facility] | | | | | | [facility] | | | | | | [facility] | | | | | | [facility] - | | | | | | LABORATORY | | + + + + + + | MCHC | 34.1 | 32.0 - 36.0 | [facility] | | | | | g/dL | [facility] | | | | | | [facility] | | | | | | CENTER - | | | | | | LABORATORY | | + + + + + + | RDW-CV | 13.9 | <15.0 % | [facility] | | | | | | [facility] | | | | | | [facility] | | | | | | [facility] - | | | | | | LABORATORY | | + + + + + + | Platelet | 315 | 140 - 440 K/uL | [facility] | | | Count | | | [facility] | | | | | | [facility] | | | | | | CENTER - | | | | | | LABORATORY | | + + + + + + | % | 89.5 (H) | 45 - 75 % | [facility] | | | Neutrophils | | | [facility] | | | | | | [facility] | | | | | | CENTER - | | | | | | LABORATORY | | + + + + + + | % | 6.1 (L) | 20 - 45 % | [facility] | | | Lymphocytes | | | [facility] | | | | | | [facility] | | | | | | CENTER - | | | | | | LABORATORY | | + + + + + + | % Monocytes | 4.3 | 4 - 12 % | [facility] | | | | | | [facility] | | | | | | [facility] | | | | | | CENTER - | | | | | | LABORATORY | | + + + + + + | % | 0.0 | 0 - 5 % | [facility] | | | Eosinophils | | | [facility] | | | | | | MEDICAL | | | | | | CENTER - | | | | | | LABORATORY | | + + + + + + | % Basophils | 0.1 | 0 - 1 % | [facility] | | | | | | [facility] | | | | | | [facility] | | | | | | CENTER - | | | | | | LABORATORY | | + + + + + + | Absolute | 12.9 (H) | 1.5 - 6.6 K/uL | [facility] | | | Neutrophils | | | [facility] | | | | | | [facility] | | | | | | CENTER - | | | | | | LABORATORY | | + + + + + + | Absolute | 0.9 | 0.6 - 3.2 K/uL | [facility] | | | Lymphocytes | | | [facility] | | | | | | [facility] | | | | | | CENTER - | | | | | | LABORATORY | | + + + + + + | Absolute | 0.6 | 0.0 - 1.0 K/uL | [facility] | | | Monocytes | | | [facility] | | | | | | MEDICAL | | | | | | CENTER - | | | | | | LABORATORY | | + + + + + + | Absolute | 0.0 | 0.0 - 0.4 K/uL | [facility] | | | Eosinophils | | | [facility] | | | | | | [facility] | | | | | | CENTER - | | | | | | LABORATORY | | + + + + + + | Absolute | 0.0 [...] + | [facility] | [address] | [place] | [phone] | | [facility] | | [address] | | | - LABORATORY | | | | + + + + + | [facility] | [address] | [place], [place] | | | [facility] | | [address] | | | - LABORATORY | | | | + + + + + Basic Metabolic Panel (12/24/2012 6:39 AM PDT) + + + + + + | Component | Value | Ref Range | Performed | Pathologist | | | | | At | Signature | + + + + + + | Glucose | 143 (H) | 70 - 109 mg/dL | [facility] | | | | | | [facility] | | | | | [facility] | | | | | | [facility] - | | | | | | LABORATORY | | + + + + + + | Calcium | 9.2 | 8.3 - 10.5 | [facility] | | | | | mg/dL | [facility] | | | | | | MEDICAL | | | | | | CENTER - | | | | | | LABORATORY | | + + + + + + | BUN | 17 | 7 - 18 mg/dL | [facility] | | | | | | [facility] | | | | | | [facility] | | | | | | CENTER - | | | | | | LABORATORY | | + + + + + + | Creatinine | 0.72 | 0.60 - 1.30 | [facility] | | | | | mg/dL | [facility] | | | | | | MEDICAL | | | | | | CENTER - | | | | | | LABORATORY | | + + + + + + | Estimated | >60Comment: For | >60 mL/min/A | [facility] | | | GFR | -Americans, | | [facility] | | | | please multiply [...] + + + + | BUN/Creatin | 23.6 (H) | 12 - 20 | [facility] | | | ine Ratio | | | [facility] | | | | | | [facility]ICAL | | | | | | CENTER - | | | | | | LABORATORY | | + + + + + + | Na | 142 | 136 - 149 mEq/L | [facility] | | | | | [facility] | | | | | [facility] | | | | | | [facility] - | | | | | | LABORATORY | | + + + + + + | K | 4.1 | 3.5 - 5.1 mEq/l | [facility] | | | | | | [facility] | | | | | | [facility] | | | | | | CENTER - | | | | | | LABORATORY | | + + + + + + | Cl | 110 (H) | 98 - 109 mEq/l | [...] + + + | Anion Gap | 11.1 | 6.0 - 17.0 | [facility] | [...] + | [facility] | [address] | [place] | [phone] | | [facility] | | [address] | | | - LABORATORY | | | | + + + + + | [facility] | [address] | [place], [place] | | | [facility] | | [address] | | | - LABORATORY | | | | + + + + + CBC with Differential (12/23/2012 6:44 AM PDT) + + + + + + | Component | Value | Ref Range | Performed | Pathologist | | | | | At | Signature | + + + + + + | MANUAL | NO | | [facility] | | | DI[facility]ENTIA | | | [facility] | | | L ? | | | [facility]ICAL | | | | | | CENTER - | | | | | | LABORATORY | | + + + + + + | WBC | 12.5 (H) | 4.0 - 11.0 K/uL | [facility] | | | | | | [facility] | | | | | | [facility]ICAL | | | | | | CENTER - | | | | | | LABORATORY | | + + + + + + | RBC | 4.67 | 3.70 - 5.20 | [facility] | | | | | M/uL | [facility] | | | | | | MEDICAL | | | | | | CENTER - | | | | | | LABORATORY | | + + + + + + | Hemoglobin | 14.3 | 11.5 - 16.0 | [facility] | | | | | gm/dL | [facility] | | | | | | [facility]ICAL | | | | | | CENTER - | | | | | | LABORATORY | | + + + + + + | Hematocrit | 41.5 | 34.0 - 47.0 % | [facility] | | | | | | [facility] | | | | | | [facility] | | | | | | CENTER - | | | | | | LABORATORY | | + + + + + + | MCV | 88.9 | 83.0 - 101.0 fL | [facility] | | | | | | [facility] | | | | | | [facility] | | | | | | CENTER - | | | | | | LABORATORY | | + + + + + + | MCH | 30.7 | 28.0 - 35.0 pg | [facility] | | | | | | [facility] | | | | | | [facility]ICAL | | | | | | CENTER - | | | | | | LABORATORY | | + + + + + + | MCHC | 34.5 | 32.0 - 36.0 | [facility] | | | | | g/dL | [facility] | | | | | | MEDICAL | | | | | | CENTER - | | | | | | LABORATORY | | + + + + + + | RDW-CV | 13.4 | <15.0 % | [facility] | | | | | | [facility] | | | | | | [facility] | | | | | | CENTER - | | | | | | LABORATORY | | + + + + + + | Platelet | 301 | 140 - 440 K/uL | [facility] | | | Count | | | [facility] | | | | | | [facility] | | | | | | CENTER - | | | | | | LABORATORY | | + + + + + + | % | 90.3 (H) | 45 - 75 % | [facility] | | | Neutrophils | | | [facility] | | | | | | [facility]ICAL | | | | | | CENTER - | | | | | | LABORATORY | | + + + + + + | % | 7.5 (L) | 20 - 45 % | [facility] | | | Lymphocytes | | | [facility] | | | | | | MEDICAL | | | | | | CENTER - | | | | | | LABORATORY | | + + + + + + | % Monocytes | 2.1 (L) | 4 - 12 % | [facility] | | | | | | [facility] | | | | | | [facility]ICAL | | | | | | CENTER - | | | | | | LABORATORY | | + + + + + + | % | 0.0 | 0 - 5 % | [facility] | | | Eosinophils | | | [facility] | | | | | | MEDICAL | | | | | | CENTER - | | | | | | LABORATORY | | + + + + + + | % Basophils | 0.1 | 0 - 1 % | [facility] | | | | | | [facility] | | | | | | MEDICAL | | | | | | CENTER - | | | | | | LABORATORY | | + + + + + + | Absolute | 11.3 (H) | 1.5 - 6.6 K/uL | [facility] | | | Neutrophils | | | [facility] | | | | | | MEDICAL | | | | | | CENTER - | | | | | | LABORATORY | | + + + + + + | Absolute | 0.9 | 0.6 - 3.2 K/uL | [facility] | | | Lymphocytes | | | [facility] | | | | | | MEDICAL | | | | | | CENTER - | | | | | | LABORATORY | | + + + + + + | Absolute | 0.3 | 0.0 - 1.0 K/uL | [facility] | | | Monocytes | | | [facility] | | | | | | MEDICAL | | | | | | CENTER - | | | | | | LABORATORY | | + + + + + + | Absolute | 0.0 | 0.0 - 0.4 K/uL | [facility] | | | Eosinophils | | | [facility] | | | | | | MEDICAL | | | | | | CENTER - | | | | | | LABORATORY | | + + + + + + | Absolute | 0.0 [...] + | [facility] | [address] | [place] | [phone] | | [facility] | | [address] | | | - LABORATORY | | | | + + + + + | [facility] | [address] | [place] | | | [facility] | | [address] | | | - LABORATORY | | | | + + + + + Basic Metabolic Panel (12/23/2012 6:44 AM PDT) + + + + + + | Component | Value | Ref Range | Performed | Pathologist | | | | | At | Signature | + + + + + + | Glucose | 153 (H) | 70 - 109 mg/dL | [facility] | | | | | | [facility] | | | | | | [facility]ICAL | | | | | | CENTER - | | | | | | LABORATORY | | + + + + + + | Calcium | 9.2 | 8.3 - 10.5 | [facility] | [...] + + + + | Creatinine | 0.68 | 0.60 - 1.30 | [facility] | [...] | GFR | -Americans, | | [facility] | | | | please multiply [...] + + + + | BUN/Creatin | 22.1 (H) | 12 - 20 | [facility] | | | ine Ratio | | | [facility] | | | | | | MEDICAL | | | | | | CENTER - | | | | | | LABORATORY | | + + + + + + | Na | 139 | 136 - 149 mEq/L | [facility] [...] | 22 (L) | 24 - 31 mEq/L | [facility] | | | | | | [facility] | | | | | | MEDICAL | | | | | | CENTER - | | | | | | LABORATORY | | + + + + + + | Anion Gap | 12.8 | 6.0 - 17.0 | [facility] | [...] + | [facility] | [address] | [place] | [phone] | | [facility] | | [address] | | | - LABORATORY | | | | + + + + + | [facility] | [address] | [place] | | | [facility] | | [address] | | | - LABORATORY | | | | + + + + + XR Chest AP Portable (12/22/2012 12:40 PM PDT) + + | Specimen | + + | | + + + + + | Narrative | Performed At | + + + | [facility] | [facility] | | Department [address] , [place] | [facility] | | [ rep [address]] [ rep [facility] | | st zip] Signed | - IMAGING | | | | | Patient Name: JADYN SCHMITZ | | | Physician: JAZMYN : 1965 Age: 47 Sex: F Unit | | | #: [id number] Exam Date: 12/22/12 Location: | | | [address] [place] [address] Report #: [id number] Page: | | | %(RAD)RES..mtdd.print.filter("pg") of %(RAD) | | | RES..mtdd.print.filter("tpg") | | | | | | Accession Number: [id number] | | | CHEST PORTABLE CLINICAL HISTORY: SHORTNESS OF BREATH. | | | COMPARISON: Numerous previous chest x-rays, most | | | recently 10/24/2011. FINDINGS: AP view of the chest | | | was obtained. There is mild scarring involving the bilateral apices. | | | The lungs are otherwise clear. Mild hyperinflation is observed. | | | Cardiomediastinal silhouette is normal. There is mild | | | spondylosis of the thoracic spine. IMPRESSION: 1. | | | NO ACUTE FINDINGS. 2. HYPERINFLATION OF BILATERAL | | | LUNGS. Dictated Date/Time: 12/22/2012 12:40 | | | Transcribed Date/Time: 12/22/2012 13:10 Craft Artist: | | | <<Signature on File>> | | | Kobe | | | MD Tor12/22/12 1429 <Electronically signed by Kobe Lentz MD> | | | Kobe Lentz MD 12/22/12 1240 Craft Artist: [email or web address] | | | [email or web address] 1310 Yecenia Gallegos MD | | | | | + + + + + + + + | Performing | Address | City/State/Zipcode | Phone Number | | Organization | | | | + + + + + | [facility] | [address] | [place] | [phone] | | [facility] | | [address] | | | - IMAGING | | | | + + + + + CBC with Differential (12/22/2012 11:52 AM PDT) + + + + + [...] + + + + | WBC | 8.5 | 4.0 - 11.0 K/uL | [facility] | | | | | | [facility] | | | | | | [facility] | | | | | | [facility] - | | | | | | LABORATORY | | + + + + + + | RBC | 4.73 | 3.70 - 5.20 | [facility] | | | | | M/uL | [facility] | | | | | | [facility] | | | | | | CENTER - | | | | | | LABORATORY | | + + + + + + | Hemoglobin | 14.6 | 11.5 - 16.0 | [facility] | | | | | gm/dL | [facility] | | | | | | MEDICAL | | | | | | CENTER - | | | | | | LABORATORY | | + + + + + + | Hematocrit | 42.1 | 34.0 - 47.0 % | [facility] | | | | | | [facility] | | | | | | [facility] | | | | | | CENTER - | | | | | | LABORATORY | | + + + + + + | MCV | 89.1 | 83.0 - 101.0 fL | [facility] | | | | | | [facility] | | | | | | [facility]ICAL | | | | | | CENTER - | | | | | | LABORATORY | | + + + + + + | MCH | 30.8 | 28.0 - 35.0 pg | [facility] | | | | | | [facility] | | | | | | [facility] | | | | | | CENTER - | | | | | | LABORATORY | | + + + + + + | MCHC | 34.6 | 32.0 - 36.0 | [facility] | | | | | g/dL | [facility] | | | | | | MEDICAL | | | | | | CENTER - | | | | | | LABORATORY | | + + + + + + | RDW-CV | 13.5 | <15.0 % | [facility] | | | | | | [facility] | | | | | | [facility]ICAL | | | | | | CENTER - | | | | | | LABORATORY | | + + + + + + | Platelet | 292 | 140 - 440 K/uL | [facility] | | | Count | | | [facility] | | | | | | MEDICAL | | | | | | CENTER - | | | | | | LABORATORY | | + + + + + + | % | 87.8 (H) | 45 - 75 % | [facility] | | | Neutrophils | | | [facility] | | | | | | MEDICAL | | | | | | CENTER - | | | | | | LABORATORY | | + + + + + + | % | 10.4 (L) | 20 - 45 % | [facility] | | | Lymphocytes | | | [facility] | | | | | | MEDICAL | | | | | | CENTER - | | | | | | LABORATORY | | + + + + + + | % Monocytes | 1.6 (L) | 4 - 12 % | [facility] | | | | | | [facility] | | | | | | MEDICAL | | | | | | CENTER - | | | | | | LABORATORY | | + + + + + + | % | 0.0 | 0 - 5 % | [facility] | | | Eosinophils | | | [facility] | | | | | | MEDICAL | | | | | | CENTER - | | | | | | LABORATORY | | + + + + + + | % Basophils | 0.2 | 0 - 1 % | [facility] | | | | | | [facility] | | | | | | MEDICAL | | | | | | CENTER - | | | | | | LABORATORY | | + + + + + + | Absolute | 7.4 (H) | 1.5 - 6.6 K/uL | [facility] | | | Neutrophils | | | [facility] | | | | | | MEDICAL | | | | | | CENTER - | | | | | | LABORATORY | | + + + + + + | Absolute | 0.9 | 0.6 - 3.2 K/uL | [facility] | | | Lymphocytes | | | [facility] | | | | | | MEDICAL | | | | | | CENTER - | | | | | | LABORATORY | | + + + + + + | Absolute | 0.1 | 0.0 - 1.0 K/uL | [facility] | | | Monocytes | | | [facility] | | | | | | MEDICAL | | | | | | CENTER - | | | | | | LABORATORY | | + + + + + + | Absolute | 0.0 | 0.0 - 0.4 K/uL | [facility] | | | Eosinophils | | | [facility] | | | | | | MEDICAL | | | | | | CENTER - | | | | | | LABORATORY | | + + + + + + | Absolute | 0.0 | 0.0 - 0.1 K/uL | [facility] | | | Basophils | | | [facility] | | [...] [address] | [place] | [phone] | | [facility] | | [address] | | | - LABORATORY | | | | + + + + + | [facility] | [address] | [place] | | | [facility] | | [address] | | | - LABORATORY | | | | + + + + + Comprehensive Metabolic Panel (12/22/2012 11:52 AM PDT) + + + + + + | Component | Value | Ref Range | Performed | Pathologist | | | | | At | Signature | + + + + + + | Glucose | 155 (H) | 70 - 109 mg/dL | [...] + + + + | Alkaline | 77 | 40 - 110 IU/L | [facility] | | | Phosphatase | | | [facility] | | | | | | MEDICAL | | | | | | CENTER - | | | | | | LABORATORY | | + + + + + + | AST | 23 | 10 - 42 IU/L | [facility] | | | | | | [facility] | | | | | | MEDICAL | | | | | | CENTER - | | | | | | LABORATORY | | + + + + + + | ALT | 16 | 6 - 45 IU/L | [facility] | | | | | | [facility] | | | | | | MEDICAL | | | | | | CENTER - | | | | | | LABORATORY | | + + + + + + | Bilirubin | 0.4 | 0.2 - 1.0 mg/dL | [facility] | | | Total | | | [facility] | | | | | | MEDICAL | | | | | | CENTER - | | | | | | LABORATORY | | + + + + + + | Total | 6.2 | 6.0 - 7.8 gm/dL | [facility] [...] + + + + | BUN | 11 | 7 - 18 mg/dL | [facility] | | | [facility] | [facility] | | | | | | [facility] - | | | | | | LABORATORY | | + + + + + + | Creatinine | 0.81 | 0.60 - 1.30 | [facility] | | | | | mg/dL | [facility] | | | | | | [facility] | | | | | | [facility] - | | | | | | LABORATORY | | + + + + + + | Estimated | >60Comment: For | >60 mL/min/A | [facility] | | | GFR | -Americans, | [...] + + + + | BUN/Creatin | 13.6 | 12 - 20 | [facility] | | | ine Ratio | | | [facility] | | [facility] | | | | | | [facility] - | | | | | | LABORATORY | | + + + + + + | Na | 139 | 136 - 149 mEq/L | [facility] | [facility] | | [facility] | | | | | | [facility] - | | | | | | LABORATORY | | + + + + + + | K | 3.7 | 3.5 - 5.1 mEq/l | [facility] | [facility] | | | | | | [facility] - | | | | | | LABORATORY | | + + + + + + | Cl | 106 | 98 - 109 mEq/l | [facility] [...] + + + | Anion Gap | 12.7 | 6.0 - 17.0 | [facility] | [...] + | [facility] | [address] | [place] | [phone] | | [facility] | | [address] | | | - LABORATORY | | | | + + + + + | [facility] | [address] | [place] | | | [facility] | | [address] | | | - LABORATORY | | | | + + + + + documented in this encounter Visit Diagnoses Not on filedocumented in this encounter
--- OUTSIDE RECORDS SUMMARY | ~2019-01-15 | XMS | Encounter Summary ---
Demographics + + + | Address | [address] | | | [place] [address] | + + + | Home Phone [...] Team Providers + +------+ + | Care Grounds Restoration Specialist Name | Role | Phone | [...] | | not | [place], | [address] [place] | | | | | elsewhere | [place] [address] | [place], [place] | | | | | classified | Phone: | [phone] | | | | | Procedures | [phone] | Phone: | | | | | [facility] | Fax: | [phone] | | | | | [facility] | [phone] | Fax: | | | | | [facility] | | [phone] | +--------+--------+ + + + + Encounter Details +--------+---------+ + + + | Date | Type | Department | Care Team | Description | +--------+---------+ + + + | 12/14/ | Office | [facility] | Sandoval, Kevin, | COPD (chronic | | 2013 | Visit | [facility] | MD [address] | obstructive | | | | [facility] [address] | [place] | pulmonary disease) | | | | [address] [place] | [id number] | ([facility]) (Primary Dx) | | | | [place] [address] | | | | | | [phone] | Mary Nunez RN | | +--------+---------+ [...] tachycardia and is wearing a [employer] which she will turn in sekou gilmanow. Today, sinus rhythm 90-98 bpm without ectopy. [...] reps. Her PFT doesn't qualify her for [place], so we will monitor her as a [...] [place] | | | | | | [address] | | | | | | | | +--------+---------+ + + + | 11/24/ | Office | Cardiology | [place], | | | 2019 | Visit | | SINDHU Erickson [address] | | | | | | [place], | | | | | | [place] [address] | | | | | | [phone] | | | | | | | | +--------+---------+ + + + documented as of this encounter Visit Diagnoses + + | Diagnosis | + + | COPD (chronic obstructive pulmonary disease) (HCC) - Primary Chronic airway | | obstruction, not elsewhere classified | + + documented in this encounter
--- OUTSIDE RECORDS SUMMARY | ~2019-01-15 | XMS | Encounter Summary ---
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 Fifteen minutes were spent [id number], wit h the majority of time spent [...] [place] | | | | | | [id number] | | | | | | | | +--------+---------+ + + + | 11/24/ | Office | Cardiology | [place], | | | 2019 | Visit | | [address] | | | | | | [place], | | | | | | [place] [address] | | | | | | [phone] | | | | | | | | +--------+---------+ + + + documented as of this encounter Visit Diagnoses + + | Diagnosis | + + | Organic insomnia, unspecified - Primary | + + | GARRY on CPAP Obstructive sleep apnea (adult) (pediatric) | + + documented in this encounter"
--- OUTSIDE RECORDS SUMMARY | ~2019-01-15 | XMS | Encounter Summary ---
Demographics + + + | Address | [address] | | | [place] [address] | + + + | Home Phone [...] Team Providers + +------+ + | Care Aircraft Engineer Name | Role | Phone | + +------+ + | Yong Cherry DO | PCP | | + +------+ + Reason for Visit + + + | Reason | Comments | + + + | Fall | | + + + | Weakness | | + + + Encounter Details +--------+ + + + + | Date | Type | Department | Care Team | Description | +--------+ + + + + | 01/08/ | Emergency | [facility] | [facility] | Lightheadedness | | 2018 - | | [facility] | DO [address] | (Primary Dx); Fall, | | | | [address] [place] | [address] [place] | initial encounter; | | 01/10/ | | [place] [address] | [place] [address] | Generalized | | 2018 | | [phone] | [phone] | weakness; Paroxysmal | | | | | | atrial tachycardia | | | | | Nohemi Gregory MD | ([facility]); Chronic | | | | | [address] | obstructive | | | | | [place], [place] | pulmonary disease, | | | | | [id number] | unspecified COPD | | | | | | type ([facility]); | | | | | | Gastroesophageal | | | | | | reflux disease | | | | | | without esophagitis; | | | | | | Hypothyroidism, | | | | | | unspecified type; | | | | | | GARRY (obstructive | | | | | | sleep apnea) | +--------+ + + + + Social [...] + + + | Blood Pressure | 104/55 | 01/10/2018 7:37 AM | | | | | PST | | + + + + + | Pulse | 83 | 01/10/2018 11:37 AM | | | | | PST | | + + + + + | Temperature | 36 C (96.8 F) | 01/10/2018 7:37 AM | | | | | PST | | + + + + + | Respiratory Rate | 18 | 01/10/2018 8:36 AM | | | | | PST | | + + + + + | Oxygen Saturation | 95% | 01/10/2018 11:37 AM | | | | | PST | | + + + + + | Inhaled Oxygen | - | - | | | Concentration | | | | + + + + + | Weight | 73.2 kg (161 lb 6 | 2018 9:23 AM | | | | oz) | PST | | + + + + + | Height | 154.9 cm (5' 1") | 2018 9:23 AM | | | | | PST | | + + + + + | Body Mass Index | 30.49 | 2018 9:23 AM | | | | | [...] documented as of this encounter Discharge Summaries Robert Whitfield MD - 01/10/2018 12:43 PM PSTFormatting of this note might be differe nt from the original. HOSPITALIST DISCHARGE SUMMARY Admit date: 2018 9:12 Discharge date: 01/10/2018 12:48 Admitting Physician: Nohemi Gregory MD Discharging Physician: Robert Whitfield MD Primary Care Provider: Yong Cherry DO FINAL DIAGNOSES: Active Hospital Problems Diagnosis *Generalized weakness Paroxysmal atrial tachycardia COPD (chronic obstructive pulmonary disease) Hypothyroidism Central sleep apnea Interstitial cystitis (chronic) without hematuria GERD (gastroesophageal reflux disease) Multiple personality disorder GARRY (obstructive sleep apnea) REASON FOR ADMISSION: Chief Complaint Patient presents with Fall Weakness HOSPITAL COURSE: History of the presenting illness : Rosario Malik is a 53 y.o. female with a histor y of PAT proven Obstructive sleep apnea uses biPAP ( per patient and per our RT CPAP), woke up suddenly already at edge of bed and fell out of bed/loss of balance/weakness at midnight , assisted by daughter back in bed, associated w/ inability to speak per daughter but transi ent, woke up again suddenly, fell again w/ generalized weakness, able to put herself back in bed. Feels like coming down from caffine high. She called PCP at 8am who informed her to go to ER. Her partner drove her to ER, she walked in. She has No prior seizures or Prior synco pe, no change in medications, no chance that she mistook any medication. No neurologist. UR I last week resolved. No rash, no fever. No CVA hx. For details please refer to the H&P and daily progress notes and consults. Patient's acute hospital medical problems were briefly addressed as follow: 1. Generalized weakness : I suspected she may have nocturnal hypoxia as she was using dayti me and not night and obtained nocturnal overnight oxymetry . Although she denied use of any more than her usual Tramadol, I have my doubts as she may be over used this too and I have c ut down it while here and she become upset and threaten to leave AMA too. After the overnigh t Oxymetry, it was found that she was hypoxic and recommended 24/7 Oxygen use. Her blood wor k, UA and MRI brain are all normal. She has NSR but has PAT noted. 2. Hypothyroidism : TSH normal an on replacement 3. Central sleep apnea/ GARRY (obstructive sleep apnea) : Will have her bring the biPAP or CP AP from home to use here 4. COPD (chronic obstructive pulmonary disease) : stable and she is considered Steroid Depe ndent 5. Multiple personality disorder : Noted and this may be complication her presentation as a t the time of presentation she was not having any symptoms and only per family account. 6. GERD (gastroesophageal reflux disease) : on PPI 7. Paroxysmal atrial tachycardia : I have checked with her and I have no clear answer as w hy Propranalol as oppose to cardio selective BB as she has no Benign essential tremor or Hyp erthyroid noted. I have switched to Metoprolol 8. Interstitial cystitis (chronic) without hematuria : On oxybutynin PROCEDURES : Over night Oxymetry and noted she is hypoxic in the night while on CPAP/ BiPAP CONSULTATIONS: None IMAGING PERFORMED: MRI BRAIN WO CONTRAST 2018 1:26 PM HISTORY: transient loss of speech, evaluation cva. COMPARISON: 03/24/2016 PROTOCOL: Sagittal T1, axial T2, axial FLAIR fat sat, axial T1, axial diffusion weighted, a xial GRE. FINDINGS: The brain parenchyma shows no evidence for acute infarct, mass lesion, or hemorrh age. The brainstem is unremarkable. The cerebellum is normal. The pituitary gland has a norm al appearance. Stable calcified dural based lesion along the right anterior frontal scalp, b enign. Remote lacunar infarct is identified in the left basal ganglia The ventricles, cister ns, and sulci are of normal size and shape. Normal vascular flow voids are seen. The orbits are normal. Paranasal sinuses are clear. Mastoid air cells are normal. Calvarium, temporal b ones, and skull base structures are unremarkable. IMPRESSION - Essentially normal MRI of the brain. No acute intracranial abnormality identif ied. Dictated and Signed by: Pb Bowden MD Electronically signed: 2018 2:17 PM LABORATORY 2018 10:01 01/09/2018 05:36 WBC 11.5 (H) 8.4 RBC COUNT 4.47 4.58 Hgb 11.7 11.9 Hct, Final 37.0 37.5 MCV 82.8 (L) 81.9 (L) MCH 26.2 (L) 26.0 (L) MCHC 31.6 (L) 31.7 (L) RDW-SD 43.4 43.2 RDW-CV 14.6 14.6 Platelet Count 410 400 MPV 8.7 8.5 2018 10:01 01/09/2018 05:36 NA 136 140 K 4.4 3.7 Chloride 104 106 Carbon dioxide 22 (L) 26 ANION GAP 10 8 GLUCOSE 165 (H) 129 (H) BUN 5 (L) 4 (L) Creatinine 0.93 0.61 BUN/CREA 5.4 6.6 ALBUMIN 3.1 (L) Albumin/Glob 1.3 Total protein 5.5 (L) EGFR >60 >60 Calcium 8.6 8.8 Magnesium 2.1 2.3 ALK PHOS 70 ALT (SGPT) 17 AST (SGOT) 38 Bilirubin Total 0.6 GLOBULIN 2.4 2018 10:01 2018 13:06 2018 20:51 01/09/2018 05:36 Troponin I <0.01 0.08 (H) <0.01 <0.01 Possible lab error in Troponin 2018 11:21 Color, UA Straw Clarity, UA Clear Specific [place] 1.028 PH UA 6.0 Glucose, UA Negative Ketones, UA Trace (A) Protein, UA Negative Blood, UA Negative Bilirubin, UA Negative Nitrite, UA Negative UROBILINOGEN UA Negative Leukocyte esterase, UA Negative WBC UA 0-2 RBC UA 0-2 Squamous epithelial, UA 2-5 (A) BACTERIA UA Negative HYALINE CASTS UA 0-2 Mucus, UA Present (A) HOSPITAL COMPLICATIONS: None CONDITION ON DISCHARGE: Stable and improved as far as weakness concerned PHYSICAL EXAMINATION: Vitals: 01/10/18 0556 01/10/18 0737 01/10/18 0836 01/10/18 1137 BP: 104/55 Pulse: 60 60 105 83 Resp: Temp: 36 C (96.8 F) TempSrc: Oral SpO2: 94% 94% 93% 95% Weight: Height: PHYSICAL Exam : Gen Darinel - alert, cooperative and no distress Head - Normocephalic, without obvious abnormality, atraumatic Eyes - PERRL, conjunctiva/corneas clear, EOM's intact both eyes ENT - mucous membranes moist Neck - supple Lungs - clear to auscultation, no wheezes or rales and unlabored breathing Heart - normal rate, regular rhythm, normal S1, S2, no murmurs, rubs, clicks or gallops Abdomen - soft, non-tender, without masses or organomegaly Extremities - no peripheral edema, no clubbing or cyanosis Skin - no rashes, no ecchymoses Neurologic - Alert and oriented x 3. CN II-XII intact. ALLERIES ON DISCHARGE: Allergies Allergen Reactions Onion Anaphylaxis Doxycycline Hives Erythromycin Base Other (See Comments) Bloating and swelling, lips swell Macrolides And Ketolides Hives Nsaids Hives Pork Allergy Other (See Comments) GI distress Sucralose Other (See Comments) Migraine Meperidine Panic attacks MEDICATIONS ON DISCHARGE: Discharge Medications New Medications Details metoprolol tartrate 25 mg tablet Take 0.5 tablets by mouth 2 times daily. aka: LOPRESSOR nystatin 100,000 units/mL suspension Take 5 mLs by mouth 4 times daily. 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 aka: LANOXIN fluticasone-salmeterol 230-21 MCG/ACT inhaler Inhale 2 puffs into the lungs 2 times daily. aka: ADVAIR HFA gabapentin 800 MG tablet Take 800 mg by mouth 3 times daily. aka: NEURONTIN GEODON 80 MG capsule Generic drug: ziprasidone Take 80 mg by mouth 2 times daily. HYDROcodone-acetaminophen 5-325 mg per tablet Take 1-2 tablets by mouth EVERY 4 TO 6 HOURS NEEDED for Pain. aka: NORCO hydrOXYzine hydrochloride 25 mg tablet Take 1 tablet by mouth Daily. aka: ATARAX levothyroxine 75 MCG tablet Take 75 mcg by mouth every morning (before breakfast). aka: SYNTHROID magnesium oxide 400 mg tablet Take 1 tablet by mouth Daily. aka: MAG-OX metFORMIN 500 mg tablet Take 500 mg by mouth 2 times daily (with breakfast & dinner). aka: GLUCOPHAGE oxybutynin 5 mg tablet Take 5 mg by mouth 2 times daily. aka: DITROPAN oxygen Inhale into the lungs continuous. 2.5 L unless on her portable then shes on 3 L pantoprazole 20 mg tablet Take 40 mg by mouth every morning (before breakfast). aka: PROTONIX potassium chloride 20 mEq ER tablet Take 1 tablet by mouth Daily. aka: Klor-Con M20 predniSONE 10 mg tablet Take 10 mg by mouth Daily. aka: DELTASONE Respiratory Therapy Supplies [facility] Change CPAP back to 11-14 cm H2O. All necessary supplies. No oxygen bleed in. Diagnosis Co de(s)327.23. Length of Need: Lifetime. Please send order to [facility]. This i s not a new order, just a change in settings. Respiratory Therapy Supplies [facility] Please provide patient with necessary CPAP supplies (she did not specify, okay to send ord er as appropriate) Diagnosis Code(s)327.23 . Length of Need 99 months. Please send order to [facility]. roflumilast 500 mcg tablet Take 1 tablet by mouth Daily. aka: DALIRESP SUMAtriptan 100 mg tablet Take 100 mg by mouth as needed. aka: IMITREX traMADol 50 mg tablet Take 50 mg by mouth 4 times daily. aka: ULTRAM Discontinued Medications propranolol 10 mg tablet aka: INDERAL PHYSICAL ACTIVITY: As able and no restrictions DIET: Resume pre- admission diet DISPOSITION: Home FOLLOW UP CARE: Follow up with PCP in 1 week PENDING STUDIES: None CODE STATUS and GOALS OF CARE Code status at discharge: Full code Greater than 30 minutes was spent on discharge and coordination of post hospital care. Robert Whitfield 01/10/18 12:48 documented in t his encounter Medications at Time of Discharge + + + +---------+ + + | Medication | Sig | Dispensed | Refills | Start | End Date | | | | | | Date | | + + + +---------+ + + | | Inhale 2 puffs into | | 0 | | | | fluticasone-salmeter | the lungs 2 times | | | | | | ol (ADVAIR HFA) | daily. [...] | send order to [facility] | | | | | | | [facility]. | | | | | [...] + + | digoxin (LANOXIN) | Take 125 mcg by | | 0 | | | | 125 mcg tablet | mouth Daily. | | | | 8 | + + + +---------+ [...] metoprolol | Take 0.5 tablets by | 60 | 0 | 01/11/20 | | | tartrate (LOPRESSOR) | mouth 2 times daily. | tablet | | 18 | 9 | | 25 mg tablet | | | | | | + + + +---------+ + + | nystatin | Take 5 mLs by mouth | 60 mL | 0 | 01/11/20 | | | (MYCOSTATIN) 100,000 | 4 times daily. 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 Taking pr n gabapentin and tramadol to help pain relief for chronic pain, repositioning pt for comfort . Voiding without difficulty. BM 01/09/18. Family here to take pt home. Pt discharge instruc tions gave and explained to pt. Pt discharged around 1415. Robert Dutta MD - 01/09/2018 1:54 PM PSTFo rmatting of this note might be different from the original. HOSPITALIST PROGRESS NOTE Patient: Rosario Malik : 1965: Age: 53 y.o. MedRec: [id number] PCP: Yong Cherry DO Admission date: 2018 Hospital day # : 0 Physician author: Robert Whitfield MD Today: 01/09/2018 SUBJECTIVE/ OVERNIGHT EVENTS : Complaints wanted her Tramadol She said she was using BiPAP without Oxygen at home in the night and oxygen in the day time , some conflicting news She also not use the biPAP/ CPAP all the way to the morning in stead take it out by mid sharmila e around 4 AM or so. ADMISSION HISTORY : History of the presenting illness : Rosario Malik is a 53 y.o. female with a histor y of PAT proven Obstructive sleep apnea uses biPAP ( per patient and per our RT CPAP), woke up suddenly already at edge of bed and fell out of bed/loss of balance/weakness at midnight , assisted by daughter back in bed, associated w/ inability to speak per daughter but transi ent, woke up again suddenly, fell again w/ generalized weakness, able to put herself back in bed. Feels like coming down from caffine high. She called PCP at 8am who informed her to go to ER. Her partner drove her to ER, she walked in. She has No prior seizures or Prior synco pe, no change in medications, no chance that she mistook any medication. No neurologist. UR I last week resolved. No rash, no fever. No CVA hx. MEDICATIONS: albuterol-ipratropium 3 mL Nebulization RT Q8H budesonide 0.5 mg Nebulization RT BID digoxin 125 mcg Oral Daily fluticasone-salmeterol 2 puff Inhalation BID insulin lispro 0-6 Units Subcutaneous 4x Daily WC and HS levothyroxine 75 mcg Oral QAM AC metFORMIN 500 mg Oral BID WC metoprolol tartrate 12.5 mg Oral BID nystatin 500,000 Units Swish & Swallow 4x Daily oxybutynin 5 mg Oral BID AC pantoprazole 40 mg Oral QAM AC potassium chloride 20 mEq Oral Daily predniSONE 10 mg Oral Daily ziprasidone 80 mg Oral BID OBJECTIVE: Vitals: 01/09/18 0305 01/09/18 0534 01/09/18 0757 01/09/18 0901 BP: 121/54 118/56 Pulse: 79 80 78 99 Resp: Temp: 36.2 C (97.2 F) 36.1 C (97 F) TempSrc: Oral Oral SpO2: 92% 93% 96% 96% Weight: Height: Weight: 73.2 kg (161 lb 6 oz) I/O last 3 completed shifts: In: 480 [P.O.:480] Out: 1300 [Urine:1300] I/O this shift: In: 480 [P.O.:480] Out: 525 [Urine:525] PHYSICAL Exam : Gen Darinel - alert, cooperative and no distress Head - Normocephalic, without obvious abnormality, atraumatic Eyes - PERRL, conjunctiva/corneas clear, EOM's intact both eyes ENT - mucous membranes moist Neck - supple Lungs - clear to auscultation, no wheezes or rales and unlabored breathing Heart - normal rate, regular rhythm, normal S1, S2, no murmurs, rubs, clicks or gallops Abdomen - soft, non-tender, without masses or organomegaly Extremities - no peripheral edema, no clubbing or cyanosis Skin - no rashes, no ecchymoses Neurologic - Alert and oriented x 3. CN II-XII intact. LABS & IMAGING: reviewed Recent Results (from the past 48 hour(s)) ECG 12 lead Collection Time: 01/08/18 9:49 Result Value Ref Range VENTRICULAR RATE EKG 67 BPM ATRIAL RATE 67 BPM P-R INTERVAL 124 ms QRS DURATION 78 ms Q-T INTERVAL 422 ms Q-T INTERVAL (CORRECTED) 445 ms P WAVE AXIS 55 degrees QRS AXIS 8 degrees T AXIS 54 degrees INTERPRETATION TEXT Normal sinus rhythm Low voltage QRS Nonspecific ST abnormality Anterior leads When compared with ECG of 08-JAN-2018 09:48, (Unconfirmed) T wave amplitude has increased in Anterolateral/lateral leads Confirmed by RAFA WELLS MD ([id number]) on 01/09/2018 6:50:03 AM POC Glucose Collection Time: 01/08/18 9:51 Result Value Ref Range Glucose, POC 163 (H) 70 - 109 mg/dL CBC with Differential Collection Time: 01/08/18 10:01 Result Value Ref Range WBC 11.5 (H) 4.0 - 11.0 K/uL RBC 4.47 3.70 - 5.20 M/uL Hgb 11.7 11.5 - 16.0 g/dL Hct 37.0 34.0 - 47.0 % MCV 82.8 (L) 83.0 - 101.0 fL MCH 26.2 (L) 28.0 - 35.0 pg MCHC 31.6 (L) 32.0 - 36.0 g/dL RDW-CV 14.6 <15.0 % RDW-SD 43.4 35.1 - 46.3 fL Platelet Count 410 140 - 440 K/uL MPV 8.7 6.5 - 12.4 fL % Neutrophils 74.5 45.0 - 82.0 % % Lymphocytes 20.9 20.0 - 45.0 % % Monocytes 3.2 (L) 4.0 - 12.0 % % Eosinophils 0.7 0.0 - 5.0 % % Basophils 0.3 0.0 - 1.0 % % Immature granulocytes 0.4 0.0 - 0.4 % Absolute Neutrophils 8.52 (H) 1.80 - 8.50 K/uL Absolute Lymphocytes 2.40 0.60 - 3.20 K/uL Absolute Monocytes 0.37 0.00 - 1.00 K/uL Absolute Eosinophils 0.08 0.00 - 0.40 K/uL Absolute Basophils 0.04 0.00 - 0.10 K/uL Absolute Imm. Granulocytes 0.05 (H) 0.00 - 0.03 K/uL nRBC 0 0 - 2 per 100 WBC's NRBC ABS 0.00 0.00 - 0.01 K/uL Comprehensive Metabolic Panel Collection Time: 01/08/18 10:01 Result Value Ref Range NA 136 136 - 149 mmol/L K 4.4 3.5 - 5.1 mmol/L CL 104 98 - 109 mmol/L CO2 22 (L) 24 - 31 mmol/L ANION GAP 10 3 - 16 mmol/L GLUCOSE 165 (H) 70 - 109 mg/dL BUN 5 (L) 7 - 18 mg/dL Creatinine, Serum/Plasma 0.93 0.60 - 1.30 mg/dL eGFR if not >60 >=60 mL/min/1.73m2 CALCIUM 8.6 8.3 - 10.5 mg/dL ALBUMIN 3.1 (L) 3.2 - 5.0 g/dL Bilirubin Total 0.6 0.1 - 1.5 mg/dL Total protein 5.5 (L) 6.0 - 7.8 g/dL AST 38 10 - 42 U/L ALT 17 6 - 45 U/L ALK PHOS 70 40 - 110 U/L GLOBULIN 2.4 2.1 - 3.8 g/dL Albumin/Globulin ratio 1.3 0.8 - 2.0 BUN/CREA 5.4 Troponin I Collection Time: 01/08/18 10:01 Result Value Ref Range Troponin I <0.01 <0.06 ng/mL Extra Lavender Top Tube Collection Time: 01/08/18 10:01 Result Value Ref Range Extra Lavender Top Tube Done Extra Blue Top Tube Collection Time: 01/08/18 10:01 Result Value Ref Range Extra Blue Top Tube Done B Type Natriuretic Peptide Collection Time: 01/08/18 10:01 Result Value Ref Range BNP 45 <100 pg/mL Magnesium Collection Time: 01/08/18 10:01 Result Value Ref Range Magnesium 2.1 1.8 - 2.5 mg/dL Urinalysis With Microscopic Collection Time: 01/08/18 11:21 Result Value Ref Range Color Straw Light Yellow, Yellow, Straw Clarity Clear Clear PH UA 6.0 5.0 - 8.0 Specific [place] 1.028 1.001 - 1.030 PROTEIN UA Negative Negative BLOOD UA Negative Negative GLUCOSE UA Negative Negative KETONES UA Trace (A) Negative BILIRUBIN UA Negative Negative NITRITE UA Negative Negative LEUKOCYTES ESTERASE UA Negative Negative UROBILINOGEN UA Negative 0.2 mg/dL, 1.0 mg/dL, Negative WBC UA 0-2 0 - 2 /HPF RBC UA 0-2 0 - 2 /HPF SQUAMOUS EPITHELIAL UA 2-5 (A) 0 - 2 /LPF BACTERIA UA Negative Negative /HPF MUCUS UA Present (A) Negative /LPF HYALINE CASTS UA 0-2 0 - 2 /LPF Drugs of Abuse, Screen, Urine Collection Time: 01/08/18 11:21 Result Value Ref Range Amphetamine Screen, Urine Negative Negative Barbiturates Screen, Urine Negative Negative Benzodiazepines, Urine, Screen Negative Negative Cannabinoids Screen, Urine Negative Negative Cocaine Screen, Urine Negative Negative Methadone Screen, Urine Negative Negative Opiates Screen, Urine Negative Negative TSH Collection Time: 01/08/18 13:06 Result Value Ref Range TSH 1.00 0.45 - 5.33 uIU/mL Culture, Blood Collection Time: 01/08/18 13:06 Result Value Ref Range Culture Positive Blood Culture (AA) Gram Stain Result Gram positive cocci in clusters Culture, Blood Collection Time: 01/08/18 13:06 Result Value Ref Range Culture No growth: Monitored continually by instrument for 5 days Digoxin Level Collection Time: 01/08/18 13:06 Result Value Ref Range Digoxin level 0.4 (L) 0.8 - 2.0 ng/mL Troponin I Collection Time: 01/08/18 13:06 Result Value Ref Range Troponin I 0.08 (H) <0.06 ng/mL CK Total Collection Time: 01/08/18 13:06 Result Value Ref Range CK TOTAL 35 22 - 269 U/L POC Glucose Collection Time: 01/08/18 17:17 Result Value Ref Range Glucose, POC 98 70 - 109 mg/dL POC Glucose Collection Time: 01/08/18 20:15 Result Value Ref Range Glucose, POC 96 70 - 109 mg/dL Troponin I Collection Time: 01/08/18 20:51 Result Value Ref Range Troponin I <0.01 <0.06 ng/mL POC Glucose Collection Time: 01/09/18 3:40 Result Value Ref Range Glucose, POC 144 (H) 70 - 109 mg/dL Basic Metabolic Panel Collection Time: 01/09/18 5:36 Result Value Ref Range NA 140 136 - 149 mmol/L K 3.7 3.5 - 5.1 mmol/L CL 106 98 - 109 mmol/L CO2 26 24 - 31 mmol/L ANION GAP 8 3 - 16 mmol/L GLUCOSE 129 (H) 70 - 109 mg/dL BUN 4 (L) 7 - 18 mg/dL Creatinine, Serum/Plasma 0.61 0.60 - 1.30 mg/dL eGFR if not >60 >=60 mL/min/1.73m2 CALCIUM 8.8 8.3 - 10.5 mg/dL BUN/CREA 6.6 CBC no Differential Collection Time: 01/09/18 5:36 Result Value Ref Range WBC 8.4 4.0 - 11.0 K/uL RBC 4.58 3.70 - 5.20 M/uL Hgb 11.9 11.5 - 16.0 g/dL Hct 37.5 34.0 - 47.0 % MCV 81.9 (L) 83.0 - 101.0 fL MCH 26.0 (L) 28.0 - 35.0 pg MCHC 31.7 (L) 32.0 - 36.0 g/dL RDW-CV 14.6 <15.0 % RDW-SD 43.2 35.1 - 46.3 fL Platelet Count 400 140 - 440 K/uL MPV 8.5 6.5 - 12.4 fL nRBC 0 0 - 2 per 100 WBC's NRBC ABS 0.00 0.00 - 0.01 K/uL Magnesium Collection Time: 01/09/18 5:36 Result Value Ref Range Magnesium 2.3 1.8 - 2.5 mg/dL Troponin I Collection Time: 01/09/18 5:36 Result Value Ref Range Troponin I <0.01 <0.06 ng/mL POC Glucose Collection Time: 01/09/18 6:05 Result Value Ref Range Glucose, POC 154 (H) 70 - 109 mg/dL POC Glucose Collection Time: 01/09/18 11:49 Result Value Ref Range Glucose, POC 123 (H) 70 - 109 mg/dL Mri Brain Wo Contrast Result Date: 2018 MRI BRAIN WO CONTRAST 2018 1:26 PM HISTORY: transient loss of speech, evaluation cva. COMPARISON: 03/24/2016 PROTOCOL: Sagittal T1, axial T2, axial FLAIR fat sat, axial T1, axial diffusion weighted, axial GRE. FINDINGS: The brain parenchyma shows no evidence for acute i nfarct, mass lesion, or hemorrhage. The brainstem is unremarkable. The cerebellum is normal. The pituitary gland has a normal appearance. Stable calcified dural based lesion along the right anterior frontal scalp, benign. Remote lacunar infarct is identified in the left basal ganglia The ventricles, cisterns, and sulci are of normal size and shape. Normal vascular f low voids are seen. The orbits are normal. Paranasal sinuses are clear. Mastoid air cells ar e normal. Calvarium, temporal bones, and skull base structures are unremarkable. IMPRESSION - Essentially normal MRI of the brain. No acute intracranial abnormality identified. Dictate d and Signed by: Pb Bowden MD Electronically signed: 2018 2:17 PM Xr Chest Ap Portable Result Date: 2018 SINGLE AP CHEST 2018 9:56 AM CLINICAL HISTORY: FALL WEAKNESS COMPARISON: Radiography September 13 and more remote imaging FINDINGS: The cardiomediastinal silhouette and pulmonary vas culature are unremarkable. A small nodular density is again visible in the right lung apex and is similar to previous studies. Minimal blunting of the left costophrenic angle and mil d left basilar reticular opacity are chronic, favoring scar. The lungs are clear elsewhere without visible pneumothorax or definite pleural effusion. No fracture is visible. There i s mild to moderate gaseous distention of the imaged stomach. IMPRESSION - 1. NO RADIOGRAPH IC EVIDENCE OF TRAUMATIC INJURY OR NEW DISEASE IN THE CHEST. 2. SIMILAR SMALL NODULAR DENSI TY IN THE RIGHT LUNG APEX. CONSIDER INTERVAL CT FOLLOW-UP RECOMMENDED IN JULY 2017. 3. PROBABLE LEFT BASILAR PLEURAL-PARENCHYMAL SCAR. Dictated and Signed by: Aditya Snyder MD Jennifer ctronically signed: 2018 10:[address] Angiogram Head Neck Result Date: 2018 EXAM: CT ANGIOGRAM HEAD NECK dated 2018 10:57 AM HISTORY: Fall, weakness. Transit i nability to speak. COMPARISON: Head CT dated 03/24/2016. MRI dated 06/02/2014. TECHNIQUE: Non contrast imaging is performed through the brain. Post contrast imaging is performed through the head and neck vasculature following the arterial timed injection of 115 ml of Omnipaque 350. Images are reconstructed. DOSE: DLP 1068.33 mGy per centimeter FINDINGS: NONCONTRAST HEAD: Limited by scatter artifact from right ear piercings. Brain: Ventricles, sulci and ci sterns are unremarkable for age. No areas of increased attenuation to suggest intracranial hemorrhage. There is no mass, mass effect, or midline shift. There are no abnormal extra-a xial fluid or air collections. There is preservation of the oates-white differentiation at t his time. There is no significant white matter disease. Scalp/calvarium: The scalp and skul l are intact and are unremarkable. Sinuses/orbits/mastoids: The visible mastoid air cells an d paranasal sinuses are clear. Postsurgical changes in the right maxillary sinus an ethmoid air cells. 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 Stable inferior kinking of the op tic nerves bilaterally. HEAD CTA: Widely patent intracranial vertebral arteries. The distal right vertebral artery is hypoplastic. This is related to a prominent right posterior infe rior cerebellar artery. Superior cerebellar arteries are visibly patent. The basilar arter y is widely patent. The left posterior cerebral artery is widely patent. The right is as w ell however it is a variant. The intracranial internal carotid arteries are widely pa tent. The middle cerebral arteries are widely patent bilaterally. Anterior cerebral arteri es are patent bilaterally. There is a hypoplastic right A1 segment. No aneurysmal dilatatio n. No evidence for dissection or occlusion. NECK CTA: Aorta: The aorta is not aneurysmal. There is no aortic dissection. The brachycephalic artery is patent. The right subclavian a nd visible axillary artery are widely patent. The left subclavian and visible axillary izzy ry are widely patent. Right: The common carotid artery is widely patent. The internal carot id artery is widely patent. The vertebral artery is the nondominant artery. It is widely p atent. There is no evidence for vessel dissection or occlusion. No significant atheroscler otic narrowing. Left: The left common carotid artery is widely patent. The left internal ca rotid artery is widely patent. The left vertebral artery is dominant. It is widely patent. There is no evidence for vessel dissection or occlusion. No significant atherosclerotic n arrowing. NONVASCULAR: No areas of abnormal parenchymal enhancement. No cervical lymphadeno [place]. Symmetric parotid and subarticular glands. Normal thyroid. Normal-appearing epiglot tis. Symmetrically opposed focal cords. No vocal cord nodularity. No mediastinal lymphade nopathy, within the xaizt-po-lxhd. Stable 7 mm nodule in the right apex. Bullous changes in the left apex. Small blebs in the right apex. No suspicious lytic or blastic bone lesions . Evidence of a healed sternal fracture. There appears to be fusion of the articular loreto rs at the level T3-T4 IMPRESSION - No CT evidence for an acute intracranial process. Scatter artifact limits evaluation of the posterior fossa and temporal lobes. No atherosclerotic di sease or narrowing of the intracranial or neck vasculature. No evidence for intracranial or neck vessel dissection or occlusion. Stable 7 mm nodule in the right apex. Recommend a follo w-up chest CT in one year. Dictated and Signed by: Lencho Silva MD Electronically lisha d: 2018 11:36 AM ASSESSMENT/PLAN: Generalized weakness : I suspect she may have nocturnal hypoxia and I will do the nocturnal overnight oxymetry . I am not sure why she is not using the oxygen in the night as she is u sing in the day time. Hypothyroidism : TSH normal an on replacement Central sleep apnea/ GARRY (obstructive sleep apnea) : Will have her bring the biPAP or CPAP from home to use here COPD (chronic obstructive pulmonary disease) : stable and she is considered Steroid Depende nt Multiple personality disorder : Noted and this may be complication her presentation as at t he time of presentation she was not having any symptoms and only per family account. GERD (gastroesophageal reflux disease) : on PPI Paroxysmal atrial tachycardia : I have checked with her and I have no clear answer as why Propranalol as oppose to cardio selective BB as she has no Benign essential tremor or Hypert hyroid noted. I have switched to Metoprolol Interstitial cystitis (chronic) without hematuria : On oxybutynin DVT Prophylaxis : short stay and will avoid Code Status : Full Code. DISCHARGE PLAN: Discharge in 1 day. Discussed with patient and her partner Robert Whitfield 01/09/2018 13:54 Awais Maya RN - 2018 7:34 PM PSTPt denies pain at this time. Ambulating SBA. C/o dizziness with ambulation and still had some lightheadedness while laying in bed. C/o some blurred vis ion at times. On 3L O2 NC. Arrived to the floor around 1840. documented in this encounter Plan of Treatment +--------+---------+ + + + | Date | Type | Specialty | Care Team | Description | +--------+---------+ + + + | 03/01/ | Office | Pulmonology | Mukul Clark MD | | | 2019 | Visit | | [address] | | | | | | [place] | | | | | | [address] | | | | | | | | +--------+---------+ + + + | 11/24/ | Office | Cardiology | Flores, | | | 2019 | Visit | | SINDHU Erickson [address] | | | | | | [place], | | | | | | [place] [address] | | | | | | [phone] | | | | | | | | +--------+---------+ + + + + +------+--------+ + + | Name | Type | Priori | Associated Diagnoses | Date/Time | | | | ty | | | + +------+--------+ + + | ED INFORMATION | BALWINDER | Routin | | 2018 9:13 AM | | EXCHANGE | | e | | PST | + +------+--------+ + + + +------+--------+ + + | Name | Type | Priori | Associated Diagnoses | Order Schedule | | | | ty | | | + +------+--------+ + + | DME: Oxygen Therapy | DME | Routin | Chronic | DME 1 Time for 1 | | | | e | obstructive | Occurrences starting | | | | | pulmonary disease, | 01/10/2018 until | | | | | unspecified COPD | 01/10/2018 | | | | | type (HCC) GARRY | | | | | | (obstructive sleep | | | | | | apnea) | | + +------+--------+ + + documented as of this encounter Procedures + +--------+ + + + | Procedure Name | Priori | Date/Time | Associated Diagnosis | Comments | | | ty | | | | + +--------+ + + + | ECHO COMPLETE | Routin | 01/10/2018 | | Results for this | | | e | 2:40 PM | | procedure are in the | | | | PST | | results section. | + +--------+ + + + | POC GLUCOSE | Routin | 01/10/2018 | | Results for this | | | e | 11:54 AM | | procedure are in the | | | | PST | | results section. | + +--------+ + + + | POC GLUCOSE | Routin | 01/10/2018 | | Results for this | | | e | 6:48 AM | | procedure are in the | | | | PST | | results section. | + +--------+ + + + | POC GLUCOSE | Routin | 01/10/2018 | | Results for this | | | e | 4:24 AM | | procedure are in the | | | | PST | | results section. | + +--------+ + + + | POC GLUCOSE | Routin | 01/09/2018 | | Results for this | | | e | 8:48 PM | | procedure are in the | | | | PST | | results section. | + +--------+ + + + | RT PULSE OXIMETRY, | Routin | 01/09/2018 | | | | OVERNIGHT | e | 6:07 PM | | | | | | PST | | | + +--------+ + + + | POC GLUCOSE | Routin | 01/09/2018 | | Results for this | | | e | 5:10 PM | | procedure are in the | | | | PST | | results section. | + +--------+ + + + | POC GLUCOSE | Routin | 01/09/2018 | | Results for this | | | e | 11:49 AM | | procedure are in the | | | | PST | | results section. | + +--------+ + + + | POC GLUCOSE | Routin | 01/09/2018 | | Results for this | | | e | 6:05 AM | | procedure are in the | | | | PST | | results section. | + +--------+ + + + | TROPONIN I | Timed | 01/09/2018 | | Results for this | | | | 5:36 AM | | procedure are in the | | | | PST | | results section. | + +--------+ + + + | DIGITOXIN LEVEL | Add-On | 01/09/2018 | | Results for this | | | | 5:36 AM | | procedure are in the | | | | PST | | results section. | + +--------+ + + + | CBC NO DIFFERENTIAL | Routin | 01/09/2018 | | Results for this | | | e | 5:36 AM | | procedure are in the | | | | PST | | results section. | + +--------+ + + + | MAGNESIUM | Routin | 01/09/2018 | | Results for this | | | e | 5:36 AM | | procedure are in the | | | | PST | | results section. | + +--------+ + + + | BASIC METABOLIC | Routin | 01/09/2018 | | Results for this | | PANEL | e | 5:36 AM | | procedure are in the | | | | PST | | results section. | + +--------+ + + + | POC GLUCOSE | Routin | 01/09/2018 | | Results for this | | | e | 3:40 AM | | procedure are in the | | | | PST | | results section. | + +--------+ + + + | TROPONIN I | Timed | 2018 | | Results for this | | | | 8:51 PM | | procedure are in the | | | | PST | | results section. | + +--------+ + + + | POC GLUCOSE | Routin | 2018 | | Results for this | | | e | 8:15 PM | | procedure are in the | | | | PST | | results section. | + +--------+ + + + | POC GLUCOSE | Routin | 2018 | | Results for this | | | e | 5:17 PM | | procedure are in the | | | | PST | | results section. | + +--------+ + + + | MRI BRAIN WO | Routin | 2018 | | Results for this | | CONTRAST | e | 1:39 PM | | procedure are in the | | | | PST | | results section. | + +--------+ + + + | BLOOD CULTURE GM | Routin | 2018 | | Results for this | | POSITIVE PATHOGEN | e | 1:06 PM | | procedure are in the | | PANEL, PCR | | PST | | results section. | + +--------+ + + + | TROPONIN I | Routin | 2018 | | Results for this | | | e | 1:06 PM | | procedure are in the | | | | PST | | results section. | + +--------+ + + + | CULTURE, BLOOD | Routin | 2018 | | Results for this | | | e | 1:06 PM | | procedure are in the | | | | PST | | results section. | + +--------+ + + + | CULTURE, BLOOD | Routin | 2018 | | Results for this | | | e | 1:06 PM | | procedure are in the | | | | PST | | results section. | + +--------+ + + + | TSH | Routin | 2018 | | Results for this | | | e | 1:06 PM | | procedure are in the | | | | PST | | results section. | + +--------+ + + + | CK TOTAL | Add-On | 2018 | | Results for this | | | | 1:06 PM | | procedure are in the | | | | PST | | results section. | + +--------+ + + + | DIGOXIN LEVEL | Routin | 2018 | | Results for this | | | e | 1:06 PM | | procedure are in the | | | | PST | | results section. | + +--------+ + + + | DRUGS OF ABUSE, | Routin | 2018 | | Results for this | | SCREEN, URINE | e | 11:21 AM | | procedure are in the | | | | PST | | results section. | + +--------+ + + + | URINALYSIS WITH | STAT | 2018 | | Results for this | | MICROSCOPIC | | 11:21 AM | | procedure are in the | | | | PST | | results section. | + +--------+ + + + | CT ANGIOGRAM HEAD | STAT | 2018 | | Results for this | | NECK | | 11:05 AM | | procedure are in the | | | | PST | | results section. | + +--------+ + + + | XR CHEST AP PORTABLE | STAT | 2018 | | Results for this | | | | 10:06 AM | | procedure are in the | | | | PST | | results section. | + +--------+ + + + | EXTRA LAVENDER TOP | Routin | 2018 | | Results for this | | TUBE | e | 10:01 AM | | procedure are in the | | | | PST | | results section. | + +--------+ + + + | EXTRA BLUE TOP TUBE | Routin | 2018 | | Results for this | | | e | 10:01 AM | | procedure are in the | | | | PST | | results section. | + +--------+ + + + | TROPONIN I | STAT | 2018 | | Results for this | | | | 10:01 AM | | procedure are in the | | | | PST | | results section. | + +--------+ + + + | CBC WITH | STAT | 2018 | | Results for this | | DIFFERENTIAL | | 10:01 AM | | procedure are in the | | | | PST | | results section. | + +--------+ + + + | B TYPE NATRIURETIC | Add-On | 2018 | | Results for this | | PEPTIDE | | 10:01 AM | | procedure are in the | | | | PST | | results section. | + +--------+ + + + | MAGNESIUM | Add-On | 2018 | | Results for this | | | | 10:01 AM | | procedure are in the | | | | PST | | results section. | + +--------+ + + + | COMPREHENSIVE | STAT | 2018 | | Results for this | | METABOLIC PANEL | | 10:01 AM | | procedure are in the | | | | PST | | results section. | + +--------+ + + + | POC GLUCOSE | Routin | 2018 | | Results for this | | | e | 9:51 AM | | procedure are in the | | | | PST | | results section. | + +--------+ + + + | ECG 12 LEAD | STAT | 2018 | | Results for this | | | | 9:49 AM | | procedure are in the | | | | PST | | results section. | + +--------+ + + + | ED INFORMATION | Routin | 2018 | | | | EXCHANGE | e | 9:13 AM | | | | | | PST | | | + +--------+ + + + +---+--------+ | | | | | Proced | | | ure | | | Note - | | | Vic, | | | Lab In | | | | | | Hlseve | | | n - | | | 01/08/ | | | 2018 | | | 9:14 | | | AM PST | | | | | | Format [...] | | | FICATI | | | ON?11/ | | | | | | 8 | | | 09:09? | | | HODGEN | | | , | | | GRETCH | | | EN | | | W?MRN: | | | | | | [id number] | | | [id number] | | | his | | | patien | | | t has | | | regist | | | ered | | | at the | | | | | [facility] | | [facility] | | | | | | Emerge | | | [...] | | | int | | | Nov | | | 15, | | | 2018 | | | Prov[facility] | [facility] ence | | | [facility] [place] | | | [place] | | | Emerge | | | ncy | | | Emerge | | | ncy | | | poss | | | seizur | | | e/stro | | | ke | | | Oct | | | 22, | | | 2018 | | | Provid | | | ence | | | [facility] [place] | | | [place] | | | Emerge | | | ncy | | | Emerge | | | ncy | | | poss | | | UTI | | | | | | Abdomi | | | nal | | | Pain | | | | | | Urinar | | | y | | | Compla | | | int | | | Lower | | | | | | abdomi | | | nal | | | pain, | | | unspec | | | ified | | | E.D. | | | Visit | | | Count | | | (12 | | | mo.)Fa | | | cility | | | | | | Visits | | | Low | | | Acuity | | | | | | Provid | | | ence | | | [facility] | | | l | | | Center | | | 7 0 | | | Total | | | 7 0 | | | Note: | | [...] MED | | | | | | 2018-1 | | | 1-02 | | | TRAMAD | | | OL HCL | | | 50 MG | | | | | | TABLET | | | 120 | | | YONG | | | | | | OLSWAN | | | HEATHER 4 | | | 20 | | | 2018-1 | | | 0-22 | | | HYDROC | | | ODONE- | | | ACETAM | | | IN | | | 5-325 | | | MG 10 | | | JAIME | | | | | | BILLIN | | | GSLEY | | | 2 25 | | | 2018-0 | | | [...] | | II-V | | | Rx 15 | | | CS-II | | | Rx 2 | | | Quanti | | | ty | | | Dispen | | | sed | | | 1,481 | | | Unique | | | | | | Prescr | | | ibers | | | 3 | | | Unique | | | | | | Pharma | | | cies 1 | | | | | | Benzos | | | 1 | | | Opioid | | | s 14 | | | Long | | | [...] | | | [place] | | | [facility], | | | [place] - | | | [email or web address] | | | ollect | | | ivemed | | | icalte | | | [email or web address] | | | | +---+--------+ documented in this encounter Results ECHO Complete (01/10/2018 2:40 PM PST) + +---------+ + + + | Component | Value | Ref Range | Performed | Pathologist | | | | | At | Signature | + +---------+ + + + | BASELINE | 104/55 | mmHg | [facility] | | | BLOOD | | | | | | PRESSURE | | | | | + +---------+ + + + | Patient | 161 lbs | | [facility] | | | Weight | | | | | | (lbs) | | | | | + +---------+ + + + | Patient | 61 in | | [facility] | | | Height | | | | | + +---------+ + + + | Inferior | 0.98 | cm | [facility] | | | Vena Cava | | | | | | Diameter at | | | | | | Expiration | | | | | + +---------+ + + + | LVIDd | 4.73 | cm | [facility] | | + +---------+ + + + | FS | 44 | % | [facility] | | + +---------+ + + + | LA volume | 21.14 | mL | [facility] | | + +---------+ + + + | Ascending | 3.65 | cm | [facility] | | | aorta | | | | | + +---------+ + + + | MV Area by | 2.33 | cm2 | [facility] | | | P 1/2 | | | | | | method | | | | | + +---------+ + + + | IVRT | 145.04 | msec | [facility] | | + +---------+ + + + | MV peak | 1.71 | mmHg | [facility] | | | gradient | | | | | + +---------+ + + + | MV Pressure | 94.28 | msec | [facility] | | | 1/2 time | | | | | + +---------+ + + + | LA Volume | 12 | mL/m2 | [facility] | | | Index | | | | | + +---------+ + + + | LV | 6.33 | cm | [facility] | | | Diastolic | | | | | | Length 4C | | | | | + +---------+ + + + | LV Systolic | 8.6 | cm2 | [facility] | | | Area PSAX | | | | | + +---------+ + + + | RV | 2.58 | cm | [facility] | | | Diastolic | | | | | | Basal | | | | | | Diameter | | | | | + +---------+ + + + | LV | 76 | % | [facility] | | | Lovell's | | | | | | Biplane EF | | | | | + +---------+ + + + | LV ED | 45.5 | ml | [facility] | | | Volume | | | | | | (Lovell's) | | | | | + +---------+ + + + | LV ED | 26 | ml/m2 | [facility] | | | Volume | | | | | | Index | | | | | + +---------+ + + + | LV ES | 11.04 | ml | [facility] | | | Volume | | | | | + +---------+ + + + | MV E' | 7.33 | cm/s | [facility] | | | Lateral | | | | | | Velocity | | | | | + +---------+ + + + | MV E' | 6.48 | cm/s | [facility] | | | Septal | | | | | | Velocity | | | | | + +---------+ + + + | MV | 206.92 | cm/s2 | [facility] | | | Deceleratio | | | | | | n [place] | | | | | + +---------+ + + + | MV | 325.11 | msec | [facility] | | | Deceleratio | | | | | | n Time | | | | | + +---------+ + + + | MV E/A | 0.84 | | [facility] | | | Ratio | | | | | + +---------+ + + + | MV Peak | 77.83 | cm/s | [facility] | | | A-Wave | | | | | + +---------+ + + + | MV Peak | 65.32 | cm/s | [facility] | | | E-Wave | | | | | + +---------+ + + + | LA/Aorta | 1.01 | | [facility] | | | Ratio | | | | | + +---------+ + + + | LA Area | 9.61 | cm2 | [facility] | | + +---------+ + + + | LA Systolic | 13.14 | mmHg | [facility] | | | Pressure | | | | | + +---------+ + + + | MV E/E | 10.08 | | [facility] | | | SEPTAL | | | | | + +---------+ + + + | MV E/E | 8.91 | | [facility] | | | LATERAL | | | | | + +---------+ + + + | LV ES | 6 | ml/m2 | [facility] | | | Volume | | | | | | Index | | | | | + +---------+ + + + | LV Area | 18.7 | cm2 | [facility] | | | Diastolic | | | | | + +---------+ + + + | Heart Rate | 83 | | [facility] | | + +---------+ + + + | Aortic Root | 3.7 | cm | [facility] | | | Diameter | | | | | + +---------+ + + + | IVS | 0.77 | cm | [facility] | | | Diastolic | | | | | | Thickness | | | | | | MM | | | | | + +---------+ + + + | LVPW | 0.83 | cm | [facility] | | | Diastolic | | | | | | Thickness | | | | | | MM | | | | | + +---------+ + + + | IVS | 1.33 | cm | [facility] | | | Systolic | | | | | | Thickness | | | | | | MM | | | | | + +---------+ + + + | LV Systolic | 2.67 | cm | [facility] | | | Diameter | | | | | | MM | | | | | + +---------+ + + + | LVPW | 1.5 | cm | [facility] | | | Systolic | | | | | | Thickness | | | | | | MM | | | | | + +---------+ + + + | AV Cusp | 2.2 | cm | [facility] | | | Seperation | | | | | | MM | | | | | + +---------+ + + + | LA Systolic | 3.73 | cm | [facility] | | | Diameter | | | | | | MM | | | | | + +---------+ + + + | TAPSE | 1.85 | cm | [facility] | | + +---------+ + + + | LVEF-TTE | 70 | % | [facility] | | | TRANSTHORAC | | | | | | IC ECHO | | | | | + +---------+ + + + + + | Specimen | + + | | + + + + + | Narrative | Performed At | + + + | 1. Normal | [facility] | | left ventricular chamber diameter with upper normal wall thickness | | | 2. Normal left ventricular systolic function without regional wall | | | motion abnormality 3. No significant cardiac valvular abnormality | | | 4. When compared with prior echocardiogram dated 01/14/14, no | | | significant interval change | | |significant interval change | | | | | + + + + +---------+ + + | Performing | Address | City/State/Zipcode | Phone Number | | Organization | | | | + +---------+ + + | [facility] | | | | + +---------+ + + POC Glucose (01/10/2018 11:54 AM PST) + +---------+ + + + | Component | Value | Ref Range | Performed | Pathologist | | | | | At | Signature | + +---------+ + + + | Glucose, | 127 (H) | 70 - 109 mg/dL | [facility] | | [facility] - | | | | | | [facility]ATORY | | + +---------+ + + + + + | Specimen | + + | Blood | + + + + + + + | Performing | Address | City/State/Zipcode | Phone Number | | Organization | | | | + + + + + | [facility] | [address] | [place] | [phone] | | [facility] | | [address] | | | - LABORATORY | | | | + + + + + POC Glucose (01/10/2018 6:48 AM PST) + +---------+ + + + | Component | Value | Ref Range | Performed | Pathologist | | | | | At | Signature | + +---------+ + + + | Glucose, | 121 (H) | 70 - 109 mg/dL | [facility] | | | [facility] | | | [facility] | | | | | [facility] | | | | | | [facility] - | | | | | | LABORATORY | | + +---------+ + + + + + | Specimen | + + | Blood | + + + + + + + | Performing | Address | City/State/Zipcode | Phone Number | | Organization | | | | + + + + + | [facility] | [address] | [place] | [phone] | | [facility] | | [address] | | | - LABORATORY | | | | + + + + + POC Glucose (01/10/2018 4:24 AM PST) + +---------+ + + + | Component | Value | Ref Range | Performed | Pathologist | | | | | At | Signature | + +---------+ + + + | Glucose, | 119 (H) | 70 - 109 mg/dL | [facility] | | | P[facility] | | | [facility] | [facility] | | | | | [facility] - | | | | | | LABORATORY | | + +---------+ + + + + + | Specimen | + + | Blood | + + + + + + + | Performing | Address | City/State/Zipcode | Phone Number | | Organization | | | | + + + + + | [facility] | [address] | [place] | [phone] | | [facility] | | [address] | | | - LABORATORY | | | | + + + + + POC Glucose (01/09/2018 8:48 PM PST) + +---------+ + + + | Component | Value | Ref Range | Performed | Pathologist | | | | | At | Signature | + +---------+ + + + | Glucose, | 139 (H) | 70 - 109 mg/dL | [facility] | [facility] | [facility] | [facility] | | | | | | [facility] - | | | | | | LABORATORY | | + +---------+ + + + + + | Specimen | + + | Blood | + + + + + + + | Performing | Address | City/State/Zipcode | Phone Number | | Organization | | | | + + + + + | [facility] | [address] | [place] | [phone] | | [facility] | | [address] | | | - LABORATORY | | | | + + + + + POC Glucose (01/09/2018 5:10 PM PST) + +---------+ + + + | Component | Value | Ref Range | Performed | Pathologist | | | | | At | Signature | + +---------+ + + + | Glucose, | 161 (H) | 70 - 109 mg/dL | [facility] | [facility] | [facility] | [facility] | | | | | | [facility] - | | | | | | LABORATORY | | + +---------+ + + + + + | Specimen | + + | Blood | + + + + + + + | Performing | Address | City/State/Zipcode | Phone Number | | Organization | | | | + + + + + | [facility] | [address] | [place] | [phone] | | [facility] | | [address] | | | - LABORATORY | | | | + + + + + POC Glucose (01/09/2018 11:49 AM PST) + +---------+ + + + | Component | Value | Ref Range | Performed | Pathologist | | | | | At | Signature | + +---------+ + + + | Glucose, | 123 (H) | 70 - 109 mg/dL | [facility] | | | P[facility] | | | [facility] | | | | | | [facility] | | | | | | CENTER - | | | | | | LABORATORY | | + +---------+ + + + + + | Specimen | + + | Blood | + + + + + + + | Performing | Address | City/State/Zipcode | Phone Number | | Organization | | | | + + + + + | [facility] | [address] | [place] | [phone] | | [facility] | | [address] | | | - LABORATORY | | | | + + + + + POC Glucose (01/09/2018 6:05 AM PST) + +---------+ + + + | Component | Value | Ref Range | Performed | Pathologist | | | | | At | Signature | + +---------+ + + + | Glucose, | 154 (H) | 70 - 109 mg/dL | [facility] | | [facility] | | | [facility] | | | | | [facility] | | | | | | [facility] - | | | | | | LABORATORY | | + +---------+ + + + + + | Specimen | + + | Blood | + + + + + + + | Performing | Address | City/State/Zipcode | Phone Number | | Organization | | | | + + + + + | [facility] | [address] | [place] | [phone] | | [facility] | | [address] | | | - LABORATORY | | | | + + + + + Digitoxin Level (01/09/2018 5:36 AM PST) + + + + + + | Component | Value | Ref Range | Performed | Pathologist | | | | | At | Signature | + + + + + + | Digitoxin | <5.0 (L) | 10 - 25 ng/mL | [facility] | | | Level | | | [facility] | | | | | | - BKR | | + + + + + + + + | Specimen | + + | Blood | + + + + + | Narrative | Performed At | + + + | Performed at: 01 - [facility] [address] [place] [address], | [facility] | | [facility] [id number] [employer]: Naomie Evans, Phone: | [facility] [place] | | [phone] | | + + + + + + + + | Performing | Address | City/State/Zipcode | Phone Number | | Organization | | | | + + + + + | [facility] | [id number] | [place] [address] | [phone] | | [facility] | [address] | | | + + + + + Troponin I (01/09/2018 5:36 AM PST) + + + + + + | Component | Value | Ref Range | Performed | Pathologist | | | | | At | Signature | + + + + + + | Troponin I | <0.01Comment: Reference | <0.06 ng/mL | [facility] | | | | Ranges:0.00-0.06 = | | [facility] | | | | NORMAL>0.06 = | [...] | | | | | | [employer] | | | | | [...] [address] | [place] | [phone] | | [facility] | | [address] | | | - LABORATORY | | | | + + + + + Magnesium (01/09/2018 5:36 AM PST) + +-------+ + + + | Component | Value | Ref Range | Performed | Pathologist | | | | | At | Signature | + +-------+ + + + | Magnesium | 2.3 | 1.8 - 2.5 mg/dL | [facility] | | | | | | [facility] [...] + | [facility] | [address] | [place] | [phone] | | [facility] | | [address] | | | - LABORATORY | | | | + + + + + CBC no Differential (01/09/2018 5:36 AM PST) + + + + + + | Component | Value | Ref Range | Performed | Pathologist | | | | | At | Signature | + + + + + + | WBC | 8.4 | 4.0 - 11.0 K/uL | [facility] | | [facility] | | [facility] | [facility] | | | | | | [facility] - | | | | | | LABORATORY | | + + + + + + | RBC | 4.58 | 3.70 - 5.20 | [facility] | | | | | M/uL | [facility] | | | | | | [facility] | | | | | | CENTER - | | | | | | LABORATORY | | + + + + + + | Hemoglobin | 11.9 | 11.5 - 16.0 | [facility] | | | | | g/dL | [facility] | | | | | | [facility] | | | | | | CENTER - | | | | | | LABORATORY | | + + + + + + | Hematocrit | 37.5 | 34.0 - 47.0 % | [facility] | | | | | | [facility] | | | [facility] | [facility] | | | | | | CENTER - | | | | | | LABORATORY | | + + + + + + | MCV | 81.9 (L) | 83.0 - 101.0 fL | [facility] | | | | | | [facility] | | | | | | [facility] | | | | | | CENTER - | | | | | | LABORATORY | | + + + + + + | MCH | 26.0 (L) | 28.0 - 35.0 pg | [facility] | | | | | | [facility] | | | | | | [facility]ICAL | | | | | | CENTER - | | | | | | LABORATORY | | + + + + + + | MCHC | 31.7 (L) | 32.0 - 36.0 | [facility] | | | | | g/dL | [facility] | | | | | | [facility]ICAL | | | | | | CENTER - | | | | | | LABORATORY | | + + + + + + | RDW-CV | 14.6 | <15.0 % | [facility] | | | | | | [facility] | | | | | | [facility] | | | | | | CENTER - | | | | | | LABORATORY | | + + + + + + | RDW-SD | 43.2 | 35.1 - 46.3 fL | [facility] | | | | | | [facility] | | | | | | [facility]ICAL | | | | | | CENTER - | | | | | | LABORATORY | | + + + + + + | Platelet | 400 | 140 - 440 K/uL | [facility] | | | Count | | | [facility] | | | | | | [facility] | | | | | | CENTER - | | | | | | LABORATORY | | + + + + + + | MPV | 8.5 | 6.5 - 12.4 fL | [facility] | | | | | | [facility] | | | | | | [facility]ICAL | | | | | | CENTER - | | | | | | LABORATORY | | + + + + + + | % nRBC | 0 | 0 - 2 per 100 | [facility] | | | | | WBC's | [facility] | | | | | | MEDICAL | | | | | | CENTER - | | | | | | LABORATORY | | + + + + + + | Absolute | 0.00 | 0.00 - 0.01 | [facility] | | | nRBC | | K/uL | [facility] | | | | | | MEDICAL [...] [address] | [place] | [phone] | | [facility] | | [address] | | | - LABORATORY | | | | + + + + + Basic Metabolic Panel (01/09/2018 5:36 AM PST) + + + + + + | Component | Value | Ref Range | Performed | Pathologist | | | | | At | Signature | + + + + + + | Na | 140 | 136 - 149 | [facility] | | | | | mmol/L | [facility] | | | | | | [facility]ICAL | | | | | | CENTER - | | | | | | LABORATORY | | + + + + + + | K | 3.7 | 3.5 - 5.1 | [facility] | | | | | mmol/L | [facility] | | | | | | MEDICAL | | | | | | CENTER - | | | | | | LABORATORY | | + + + + + + | Cl | 106 | 98 - 109 mmol/L | [facility] | | | | | | [facility] | | | | | | MEDICAL | | | | | | CENTER - | | | | | | LABORATORY | | + + + + + + | CO2 | 26 | 24 - 31 mmol/L | [facility] | | | | | | [facility] | | | | | | MEDICAL | | | | | | CENTER - | | | | | | LABORATORY | | + + + + + + | Anion Gap | 8 | 3 - 16 mmol/L | [facility] | | | | | | [facility] | | | | | | MEDICAL | | | | | | CENTER - | | | | | | LABORATORY | | + + + + + + | Glucose | 129 (H) | 70 - 109 mg/dL | [facility] | | | | | | [facility] | | | | | | MEDICAL | | | | | | CENTER - | | | | | | LABORATORY | | + + + + + + | BUN | 4 (L) | 7 - 18 mg/dL | [facility] | | | | | | [facility] | | | | | | MEDICAL | | | | | | CENTER - | | | | | | LABORATORY | | + + + + + + | Creatinine | 0.61 | 0.60 - 1.30 | [facility] | | | | | mg/dL | [facility] | | | | | | MEDICAL | | | | | | CENTER - | | | | | | LABORATORY | | + + + + + + | eGFR if not | >60Comment: GLOMERULAR | >=60 | [facility] | | | | FILTRATION | mL/min/1.73m2 | [facility] | | | GHANAIAN | RATE,ESTIMATED | | MEDICAL | | | | mL/min/1.57f6Zkmr than | | CENTER - | | [...] | | | | mg/dL | [facility] | | | | | | MEDICAL | | | | | | CENTER - | | | | | | LABORATORY | | + + + + + + | BUN/Creatin | 6.6 | | [facility] | | | ine Ratio | | | [facility] | | | | | | MEDICAL [...] | [facility] | [address] | [place] | [phone] | | [facility] | | [address] | | | - LABORATORY | | | | + + + + + POC Glucose (01/09/2018 3:40 AM PST) + +---------+ + + + | Component | Value | Ref Range | Performed | Pathologist | | | | | At | Signature | + +---------+ + + + | Glucose, | 144 (H) | 70 - 109 mg/dL | [facility] | | | POC | | | [facility] | | | | | | MEDICAL | | | | | | CENTER - | | | | | | LABORATORY | | + +---------+ + + + + + | Specimen | + + | Blood | + + + + + + + | Performing | Address | City/State/Zipcode | Phone Number | | Organization | | | | + + + + + | [facility] | [address] | [place] | [phone] | | [facility] | | [address] | | | - LABORATORY | | | | + + + + + Troponin I (2018 8:51 PM PST) + + + + + + | Component | Value | Ref Range | Performed | Pathologist | | | | | At | Signature | + + + + + + | Troponin I | <0.01Comment: Reference | <0.06 ng/mL | [facility] | | | | Ranges:0.00-0.06 = | | [facility] | | | | NORMAL>0.06 = | [...] | | | | | | [employer] | | | | | [...] + | [facility] | [address] | [place] | [phone] | | [facility] | | [address] | | | - LABORATORY | | | | + + + + + POC Glucose (2018 8:15 PM PST) + +-------+ + + + | Component | Value | Ref Range | Performed | Pathologist | | | | | At | Signature | + +-------+ + + + | Glucose, | 96 | 70 - 109 mg/dL | [facility] | | | POC | | | [facility] | | [...] [address] | [place] | [phone] | | [facility] | | [address] | | | - LABORATORY | | | | + + + + + POC Glucose (2018 5:17 PM PST) + +-------+ + + + | Component | Value | Ref Range | Performed | Pathologist | | | | | At | Signature | + +-------+ + + + | Glucose, | 98 | 70 - 109 mg/dL | [facility] | | | POC | | | [facility] | | | | | | MEDICAL [...] [address] | [place] | [phone] | | [facility] | | [address] | | | - LABORATORY | | | | + + + + + MRI Brain wo Contrast (2018 1:39 PM PST) + + | Specimen | + + | | + + + + + | Narrative | Performed At | + + + | MRI BRAIN WO CONTRAST 2018 1:26 PM HISTORY: transient | [facility] | | loss of speech, evaluation cva. COMPARISON: 03/24/2016 | | | PROTOCOL: Sagittal T1, axial T2, axial FLAIR fat sat, axial T1, axial | | | diffusion weighted, axial GRE. FINDINGS: The brain parenchyma | | | shows no evidence for acute infarct, mass lesion, or hemorrhage. The | | | brainstem is unremarkable. The cerebellum is normal. The pituitary | | | gland has a normal appearance. Stable calcified dural based lesion | | | along the right anterior frontal scalp, benign. Remote lacunar infarct | | | is identified in the left basal ganglia The ventricles, | | | cisterns, and sulci are of normal size and shape. Normal vascular | | | flow voids are seen. The orbits are normal. Paranasal sinuses are | | | clear. Mastoid air cells are normal. Calvarium, temporal bones, | | | and skull base structures are unremarkable. IMPRESSION - | | | Essentially normal MRI of the brain. No acute intracranial | | | abnormality identified. Dictated and Signed by: Pb Bowden MD | | | Electronically signed: 2018 2:17 PM | | + + + + + | Procedure Note | + + | Vic, Rad Results In - 2018 2:20 PM PST MRI BRAIN WO CONTRAST 2018 1:26 | | PM HISTORY: transient loss of speech, evaluation cva.COMPARISON: 1/29/2017PROTOCOL: | | Sagittal T1, axial T2, axial FLAIR fat sat, axial T1, axial diffusionweighted, axial | | GRE.FINDINGS:The brain parenchyma shows no evidence for acute infarct, mass lesion, | | orhemorrhage. The brainstem is unremarkable. The cerebellum is normal. Thepituitary | | gland has a normal appearance. Stable calcified dural based lesionalong the right | | anterior frontal scalp, benign. Remote lacunar infarct isidentified in the left basal | | gangliaThe ventricles, cisterns, and sulci are of normal size and shape.Normal vascular | | flow voids are seen.The orbits are normal. Paranasal sinuses are clear. Mastoid air | | cells arenormal.Calvarium, temporal bones, and skull base structures are | | unremarkable.IMPRESSION -Essentially normal MRI of the brain.No acute intracranial | | abnormality identified.Dictated and Signed by: Pb Bowden MD Electronically signed: | | 2018 2:17 PM | |along the right anterior frontal scalp, benign. Remote lacunar infarct is | |identified in the left basal ganglia | | | |The ventricles, cisterns, and sulci are of normal size and shape. | | | |Normal vascular flow voids are seen. | | | |The orbits are normal. Paranasal sinuses are clear. Mastoid air cells are | |normal. | | | |Calvarium, temporal bones, and skull base structures are unremarkable. | | | |IMPRESSION - | |Essentially normal MRI of the brain. | | | |No acute intracranial abnormality identified. | | | |Dictated and Signed by: Pb Bowden MD | | Electronically signed: 2018 2:17 PM | + + + +---------+ + + | Performing | Address | City/State/Zipcode | Phone Number | | Organization | | | | + +---------+ + + | [facility] | | | | + +---------+ + + Blood Culture GP Pathogen Panel, PCR (2018 1:06 PM PST) + + + + + + | Component | Value | Ref Range | Performed | Pathologist | | | | | At | Signature | + + + + + + | Staphylococ | Detected (AA)Comment: | Not Detected | [facility] | | | cus | Critical Result called | | [facility] | | | species, | to and read back by | | MEDICAL | | | DNA | Bipin Leon PharmD on | | CENTER - | | | | 01/09/2018 at 16:06 by | | LABORATORY | | | | Guru Hargrove. | | | | + + + + + + | Staphylococ | Not Detected | Not Detected | [facility] | | | cus aureus, | | | [facility] | | | DNA | | | MEDICAL | | | | | | CENTER - | | | | | | LABORATORY | | + + + + + + | Staphylococ | Not Detected | Not Detected | [facility] | | | cus | | | [facility] | | | epidermidis | | | MEDICAL | | | , DNA | | | CENTER - | | | | | | LABORATORY | | + + + + + + | Staphylococ | Not Detected | Not Detected | [facility] | | | cus | | | [facility] | | | lugdunensis | | | MEDICAL | | | , DNA | | | CENTER - | | | | | | LABORATORY | | + + + + + + | Enterococcu | Not Detected | Not Detected | [facility] | | | s faecalis, | | | [facility] | | | DNA | | | MEDICAL | | | | | | CENTER - | | | | | | LABORATORY | | + + + + + + | Enterococcu | Not Detected | Not Detected | [facility] | | | s faecium, | | | [facility] | | | DNA | | | MEDICAL | | | | | | CENTER - | | | | | | LABORATORY | | + + + + + + | David | Not Detected | Not Detected | [facility] | | | (vancomycin | | | [facility] | | | -resistance | | | MEDICAL | | | gene), DNA | | | CENTER - | | | | | | LABORATORY | | + + + + + + | Streptococc | Not Detected | Not Detected | [facility] | | | us species, | | | [facility] | | | DNA | | | MEDICAL | | | | | | CENTER - | | | | | | LABORATORY | | + + + + + + | Streptococc | Not Detected | Not Detected | [facility] | | | us | | | [facility] | | | agalactiae | | | MEDICAL | | | (Group B), | | | CENTER - | | | DNA | | | LABORATORY | | + + + + + + | Streptococc | Not Detected | Not Detected | [facility] | | | us | | | [facility] | | | anginosus, | | | MEDICAL | | | DNA | | | CENTER - | | | | | | LABORATORY | | + + + + + + | Streptococc | Not Detected | Not Detected | [facility] | | | us | | | [facility] | | | pneumonia/m | | | MEDICAL | | | itis, DNA | | | CENTER - | | | | | | LABORATORY | | + + + + + + | Streptococc | Not Detected | Not Detected | [facility] | | | us pyogenes | | | [facility] | | | (Group A), | | | MEDICAL | | | DNA | | | CENTER - | | | | | | LABORATORY | | + + + + + + | Listeria | Not Detected | Not Detected | [facility] | | | species, | | | [facility] | | | DNA | | | MEDICAL | | | | | | CENTER - | | | | | | LABORATORY | | + + + + + + | vanB | Not Detected | Not Detected | [facility] | | | (vancomycin | | | [facility] | | | -resistance | | | MEDICAL | | | gene), DNA | | | CENTER - | | | | | | LABORATORY | | + + + + + + + + | Specimen | + + | Blood | + + + + + | Narrative | Performed At | + + + | Molecular results to be confirmed by conventional methods | [facility] | | | [facility] | | | [facility] | | | - LABORATORY | + + + + + + + + | Performing | Address | City/State/Zipcode | Phone Number | | Organization | | | | + + + + + | [facility] | [address] | [place] | [phone] | | [facility] | | [address] | | | - LABORATORY | | | | + + + + + CK Total (2018 1:06 PM PST) + +-------+ + + + | Component | Value | Ref Range | Performed | Pathologist | | | | | At | Signature | + +-------+ + + + | CK TOTAL | 35 | 22 - 269 U/L | [facility] | | | | | | [facility] | | | | | | MEDICAL [...] + | [facility] | [address] | [place] | [phone] | | [facility] | | [address] | | | - LABORATORY | | | | + + + + + Troponin I (2018 1:06 PM PST) + + + + + + | Component | Value | Ref Range | Performed | Pathologist | | | | | At | Signature | + + + + + + | Troponin I | 0.08 (H)Comment: | <0.06 ng/mL | [facility] | | | | Reference | | [facility] | | | | Ranges:0.00-0.06 = | | MEDICAL | | | | NORMAL>0.06 = | | CENTER - | | | | SUSPICIOUS FOR | | LABORATORY | | | | MYOCARDIAL DAMAGE NOTE: | | | | | | Values greater than 0.50 | | | | | | ng/mL have been shown | | | | | | to be strongly | | | | | | associated with acute | | | | | | myocardial infarction. | | | | | | [employer] | | | | | [...] + | [facility] | [address] | [place] | [phone] | | [facility] | | [address] | | | - LABORATORY | | | | + + + + + Digoxin Level (2018 1:06 PM PST) + +---------+ + + + | Component | Value | Ref Range | Performed | Pathologist | | | | | At | Signature | + +---------+ + + + | Digoxin | 0.4 (L) | 0.8 - 2.0 ng/mL | [facility] | | | level | | | [facility] | | | | | | MEDICAL | | | | | | CENTER - | | | | | | LABORATORY | | + +---------+ + + + + + | Specimen | + + | Blood | + + + + + + + | Performing | Address | City/State/Zipcode | Phone Number | | Organization | | | | + + + + + | [facility] | [address] | [place] | [phone] | | [facility] | | [address] | | | - LABORATORY | | | | + + + + + Culture, Blood (2018 1:06 PM PST) + + + + + + | Component | Value | Ref Range | Performed | Pathologist | | | | | At | Signature | + + + + + + | Culture | Positive Blood Culture | | [facility] | | | | (AA) | | [facility] | | | | | | MEDICAL | | | | | | CENTER - | | | | | | LABORATORY | | + + + + + + | Culture | Micrococcus | | [facility] | | | | speciesComment: Probable | | [facility] | | | | contaminant | | MEDICAL | | | | | | CENTER - | | | | | | LABORATORY | | + + + + + + | Gram Stain | Gram positive cocci in | | [facility] | | | Result | clustersComment: 3 of 4 | | [facility] | | | | bottles positive. wea | | MEDICAL | | | | This is an appended | | CENTER - | | | | report. These results | | LABORATORY | | | | have been appended to a | | | | | | previously preliminary | | | | | | verified report. | | | | + + + + + + + + | Specimen | + + | Blood | + + + + + + + | Performing | Address | City/State/Zipcode | Phone Number | | Organization | | | | + + + + + | [facility] | [address] | [place] | [phone] | | [facility] | | [address] | | | - LABORATORY | | | | + + + + + Culture, Blood (2018 1:06 PM PST) + + + + + + | Component | Value | Ref Range | Performed | Pathologist | | | | | At | Signature | + + + + + + | Culture | Positive Blood Culture | | [facility] | | | | (AA) | | [facility] | | | | | | MEDICAL | | | | | | CENTER - | | | | | | LABORATORY | | + + + + + + | Culture | Staphylococcus | | [facility] | | | | epidermidis | | [facility] | | | | | | MEDICAL | | | | | | CENTER - | | | | | | LABORATORY | | + + + + + + | Gram Stain | Gram positive cocci in | | [facility] | | | Result | clustersComment: 3 of 4 | | [facility] | | | | bottles. Critical Result | | MEDICAL | | | | called to and read back | | CENTER - | | | | by Eric Villalpando, | | LABORATORY | | | | RN on 01/09/2018 at | | | | | | 13:18 by Elías Toscano. | | | | | | This is an appended | | | | | | report. These results | | | | | | have been appended to a | | | | | | previously preliminary | | | | | | verified report. | | | | + + + + + + + + | Specimen | + + | Blood | + + + + +--------+ + | Organism | Antibiotic | Method | Susceptibility | + + +--------+ + | Staphylococcus | Ciprofloxacin | | <=0.5 ug/mL: | | epidermidis | | | Sensitive | + + +--------+ + | Staphylococcus | Clindamycin | | Resistant | | epidermidis | | | | + + +--------+ + | Staphylococcus | Levofloxacin | | 0.25 ug/mL: | | epidermidis | | | Sensitive | + + +--------+ + | Staphylococcus | Linezolid | | 1 ug/mL: Sensitive | | epidermidis | | | | + + +--------+ + | Staphylococcus | Oxacillin | | >=4 ug/mL: | | epidermidis | | | Resistant | + + +--------+ + | Staphylococcus | Penicillin G | | >=0.5 ug/mL: | | epidermidis | | | Resistant | + + +--------+ + | Staphylococcus | Rifampin | | <=0.5 ug/mL: | | epidermidis | | | Sensitive | + + +--------+ + | Staphylococcus | Tetracycline | | <=1 ug/mL: | | epidermidis | | | Sensitive | + + +--------+ + | Staphylococcus | Trimethoprim + | | <=10 ug/mL: | | epidermidis | Sulfamethoxazole | | Sensitive | + + +--------+ + | Staphylococcus | Vancomycin | | 1 ug/mL: Sensitive | | epidermidis | | | | + + +--------+ + + + + + + | Performing | Address | City/State/Zipcode | Phone Number | | Organization | | | | + + + + + | [facility] | [address] | [place] | [phone] | | [facility] | | [address] | | | - LABORATORY | | | | + + + + + TSH (2018 1:06 PM PST) + + + + + + | Component | Value | Ref Range | Performed | Pathologist | | | | | At | Signature | + + + + + + | TSH | 1.00Comment: This is a | 0.45 - 5.33 | [facility] | | | | third generation TSH | uIU/mL | [facility] | | | | test. | | MEDICAL | | | | [...] [address] | [place] | [phone] | | [facility] | | [address] | | | - LABORATORY | | | | + + + + + Drugs of Abuse, Screen, Urine (2018 11:21 AM PST) + + + + + + | Component | Value | Ref Range | Performed | Pathologist | | | | | At | Signature | + + + + + + | Amphetamine | Negative | Negative | [facility] | | | Screen, | | | [facility] | | | Urine | | | MEDICAL | | | | | | CENTER - | | | | | | LABORATORY | | + + + + + + | Barbiturate | Negative | Negative | [facility] | | | s Screen, | | | [facility] | | | Urine | | | MEDICAL | | | | | | CENTER - | | | | | | LABORATORY | | + + + + + + | Benzodiazep | Negative | Negative | [facility] | | | sen | | | [facility] | | | Screen, | | | MEDICAL | | | Urine | | | CENTER - | | | | | | LABORATORY | | + + + + + + | Cannabinoid | Negative | Negative | [facility] | | | s Screen, | | | [facility] | | | Urine | | | MEDICAL | | | | | | CENTER - | | | | | | LABORATORY | | + + + + + + | Cocaine | Negative | Negative | [facility] | | | Screen, | | | [facility] | | | Urine | | | MEDICAL | | | | | | CENTER - | | | | | | LABORATORY | | + + + + + + | Methadone | Negative | Negative | [facility] | | | Screen, | | | [facility] | | | Urine | | | MEDICAL | | | | | | CENTER - | | | | | | LABORATORY | | + + + + + + | Opiates | Negative | Negative | [facility] | | | Screen, | | | [facility] | | | Urine | | | MEDICAL | | | | | | CENTER - | | | | | | LABORATORY | | + + + + + + + + | Specimen | + + | Urine | + + + + + + + | Performing | Address | City/State/Zipcode | Phone Number | | Organization | | | | + + + + + | [facility] | [address] | [place] | [phone] | | [facility] | | [address] | | | - LABORATORY | | | | + + + + + Urinalysis With Microscopic (2018 11:21 AM PST) + + + + + + | Component | Value | Ref Range | Performed | Pathologist | | | | | At | Signature | + + + + + + | Color | Straw | Light Yellow, | [facility] | | | | | Yellow, Straw | [facility] | | | | | | MEDICAL | | | | | | CENTER - | | | | | | LABORATORY | | + + + + + + | Clarity | Clear | Clear | [facility] | | | | | | [facility] | | | | | | MEDICAL | | | | | | CENTER - | | | | | | LABORATORY | | + + + + + + | pH, Urine | 6.0 | 5.0 - 8.0 | [facility] | | | | | | [facility] | | | | | | MEDICAL | | | | | | CENTER - | | | | | | LABORATORY | | + + + + + + | Specific | 1.028 | 1.001 - 1.030 | [facility] | | | [place] | | | [facility] | | | | | | MEDICAL | | | | | | CENTER - | | | | | | LABORATORY | | + + + + + + | Protein, | Negative | Negative | [facility] | | | Urine | | | [facility] | | | | | | MEDICAL | | | | | | CENTER - | | | | | | LABORATORY | | + + + + + + | Blood, | Negative | Negative | [facility] | | | Urine | | | [facility] | | | | | | MEDICAL | | | | | | CENTER - | | | | | | LABORATORY | | + + + + + + | Glucose, | Negative | Negative | [facility] | | | Urine | | | [facility] | | | | | | MEDICAL | | | | | | CENTER - | | | | | | LABORATORY | | + + + + + + | Ketones, | Trace (A) | Negative | [facility] | | | Urine | | | [facility] | | | | | | MEDICAL | | | | | | CENTER - | | | | | | LABORATORY | | + + + + + + | Bilirubin, | Negative | Negative | [facility] | | | Urine | | | [facility] | | | | | | MEDICAL | | | | | | CENTER - | | | | | | LABORATORY | | + + + + + + | Nitrite, | Negative | Negative | [facility] | | | Urine | | | [facility] | | | | | | MEDICAL | | | | | | CENTER - | | | | | | LABORATORY | | + + + + + + | Leukocyte | Negative | Negative | [facility] | | | Esterase, | | | [facility] | | | Urine | | | MEDICAL | | | | | | CENTER - | | | | | | LABORATORY | | + + + + + + | Urobilinoge | Negative | 0.2 mg/dL, 1.0 | [facility] | | | n, Urine | | mg/dL, Negative | [facility] | | | | [facility] | [facility] | | | | | | C[facility] - | | | | | | LABORATORY | | + + + + + + | WBC UA | 0-2 | 0 - 2 /HPF | [facility] | [facility] | | [facility] | | | | | | [facility] - | | | | | | LABORATORY | | + + + + + + | RBC UA | 0-2 | 0 - 2 /HPF | [facility] | [facility] | [facility] | [facility] | | | | | | [facility] - | | | | | | LABORATORY | | + + + + + + | SQUAMOUS | 2-5 (A) | 0 - 2 /LPF | [facility] | | | [facility] | | | [facility] | [facility] | [facility] | | | | | | CENTER - | | | | | | LABORATORY | | + + + + + + | BACTERIA UA | Negative | Negative /HPF | [facility] | [facility] | [facility] | | | | | | [facility] - | | | | | | LABORATORY | | + + + + + + | MUCUS UA | Present (A) | Negative /LPF | [facility] | [facility] | | [facility] | | | | | | [facility] - | | | | | | LABORATORY | | + + + + + + | HYALINE | 0-2 | 0 - 2 /LPF | [facility] | | | [facility] | | | [facility] | | | | [facility] [...] ST[facility] | [address] | [place], [place] | [phone] | | [facility] | | [id number] | | | - LABORATORY | | | | + + + + + CT Angiogram Head Neck (2018 11:05 AM PST) + + | Specimen | + + | | + + + + + | Narrative | Performed At | + + + | EXAM: CT ANGIOGRAM HEAD NECK dated 2018 10:57 AM HISTORY: | [facility] | | Fall, weakness. Transit inability to speak. COMPARISON: Head | | | CT dated 03/24/2016. MRI dated 06/02/2014. TECHNIQUE: Noncontrast | | | imaging is performed through the brain. Post contrast imaging is | | | performed through the head and neck vasculature following the | | | arterial timed injection of 115 ml of Omnipaque 350. Images are | | | reconstructed. DOSE: DLP 1068.33 mGy per centimeter | | | FINDINGS: NONCONTRAST HEAD: Limited by scatter artifact from | | | right ear piercings. Brain: Ventricles, sulci and cisterns are | | | unremarkable for age. No areas of increased attenuation to suggest | | | intracranial hemorrhage. There is no mass, mass effect, or midline | | | shift. There are no abnormal extra-axial fluid or air collections. | | | There is preservation of the oates-white differentiation at this | | | time. There is no significant white matter disease. | | | Scalp/calvarium: The scalp and skull are intact and are unremarkable. | | | Sinuses/orbits/mastoids: The visible mastoid air cells and | | | paranasal sinuses are clear. Postsurgical changes in the right | | | maxillary sinus an ethmoid air cells. 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 Stable inferior kinking of the optic nerves | | | bilaterally. HEAD CTA: Widely patent intracranial vertebral | | | arteries. The distal right vertebral artery is hypoplastic. This | | | is related to a prominent right posterior inferior cerebellar artery. | | | Superior cerebellar arteries are visibly patent. The basilar | | | artery is widely patent. The left posterior cerebral artery is | | | widely patent. The right is as well however it is a variant. | | | The intracranial internal carotid arteries are widely patent. The | | | middle cerebral arteries are widely patent bilaterally. Anterior | | | cerebral arteries are patent bilaterally. There is a hypoplastic | | | right A1 segment. No aneurysmal dilatation. No evidence for | | | dissection or occlusion. NECK CTA: Aorta: The aorta is not | | | aneurysmal. There is no aortic dissection. The brachycephalic | | | artery is patent. The right subclavian and visible axillary artery | | | are widely patent. The left subclavian and visible axillary artery | | | are widely patent. Right: The common carotid artery is widely | | | patent. The internal carotid artery is widely patent. The | | | vertebral artery is the nondominant artery. It is widely patent. | | | There is no evidence for vessel dissection or occlusion. No | | | significant atherosclerotic narrowing. Left: The left common | | | carotid artery is widely patent. The left internal carotid artery | | | is widely patent. The left vertebral artery is dominant. It is | | | widely patent. There is no evidence for vessel dissection or | | | occlusion. No significant atherosclerotic narrowing. | | | NONVASCULAR: No areas of abnormal parenchymal enhancement. No | | | cervical lymphadenopathy. Symmetric parotid and subarticular glands. | | | Normal thyroid. Normal-appearing epiglottis. Symmetrically | | | opposed focal cords. No vocal cord nodularity. No mediastinal | | | lymphadenopathy, within the [id number]. Stable 7 mm nodule in | | | the right apex. Bullous changes in the left apex. Small blebs in the | | | right apex. No suspicious lytic or blastic bone lesions. | | | Evidence of a healed sternal fracture. There appears to be fusion | | | of the articular pillars at the level T3-T4 IMPRESSION - No | | | CT evidence for an acute intracranial process. Scatter artifact | | | limits evaluation of the posterior fossa and temporal lobes. No | | | atherosclerotic disease or narrowing of the intracranial or neck | | | vasculature. No evidence for intracranial or neck vessel | | | dissection or occlusion. Stable 7 mm nodule in the right apex. | | | Recommend a follow-up chest CT in one year. Dictated and Signed | | | by: Lencho Silva MD Electronically signed: 2018 11:36 AM | | | | | + + + + + | Procedure Note | + + | Vic, Rad Results In - 2018 11:39 AM PST EXAM: CT ANGIOGRAM HEAD NECK dated | | 2018 10:57 AMHISTORY: Fall, weakness. Transit inability to speak.COMPARISON: | | Head CT dated 03/24/2016. MRI dated 06/02/2014.TECHNIQUE: Noncontrast imaging is | | performed through the brain. Post contrastimaging is performed through the head and | | neck vasculature following thearterial timed injection of 115 ml of Omnipaque 350. | | Images are reconstructed.DOSE: DLP 1068.33 mGy per centimeterFINDINGS: NONCONTRAST | | HEAD: Limited by scatter artifact from right ear piercings.Brain: Ventricles, sulci and | | cisterns are unremarkable for age. No areas ofincreased attenuation to suggest | | intracranial hemorrhage. There is no mass,mass effect, or midline shift. There are no | | abnormal extra-axial fluid or aircollections. There is preservation of the oates-white | | differentiation at thistime. There is no significant white matter disease. | | Scalp/calvarium: The scalp and skull are intact and are | | unremarkable.Sinuses/orbits/mastoids: The visible mastoid air cells and paranasal | | sinuses areclear. Postsurgical changes in the right maxillary sinus an ethmoid air | | cells. 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 Stable inferior kinking of | | theoptic nerves bilaterally.HEAD CTA:Widely patent intracranial vertebral arteries. The | | distal right vertebralartery is hypoplastic. This is related to a prominent right | | posterior inferiorcerebellar artery. Superior cerebellar arteries are visibly patent. | | Thebasilar artery is widely patent. The left posterior cerebral artery is widelypatent. | | The right is as well however it is a variant. The intracranialinternal carotid | | arteries are widely patent. The middle cerebral arteries arewidely patent bilaterally. | | Anterior cerebral arteries are patent bilaterally. There is a hypoplastic right A1 | | segment. No aneurysmal dilatation. No evidencefor dissection or occlusion.NECK | | CTA:Aorta: The aorta is not aneurysmal. There is no aortic dissection. | | Thebrachycephalic artery is patent. The right subclavian and visible axillaryartery are | | widely patent. The left subclavian and visible axillary artery arewidely patent.Right: | | The common carotid artery is widely patent. The internal carotid arteryis widely | | patent. The vertebral artery is the nondominant artery. It is widelypatent. There is | | no evidence for vessel dissection or occlusion. Nosignificant atherosclerotic | | narrowing.Left: The left common carotid artery is widely patent. The left | | internalcarotid artery is widely patent. The left vertebral artery is dominant. It | | iswidely patent. There is no evidence for vessel dissection or occlusion. | | Nosignificant atherosclerotic narrowing.NONVASCULAR:No areas of abnormal parenchymal | | enhancement. No cervical lymphadenopathy. Symmetric parotid and subarticular glands. | | Normal thyroid. Normal-appearingepiglottis. Symmetrically opposed focal cords. No | | vocal cord nodularity. Nomediastinal lymphadenopathy, within the [id number]. Stable | | 7 mm nodule inthe right apex. Bullous changes in the left apex. Small blebs in the | | rightapex. No suspicious lytic or blastic bone lesions. Evidence of a healedsternal | | fracture. There appears to be fusion of the articular pillars at thelevel | | T3-T2MBAANUEMAY -No CT evidence for an acute intracranial process.Scatter artifact | | limits evaluation of the posterior fossa and temporal lobes.No atherosclerotic disease | | or narrowing of the intracranial or neck vasculature.No evidence for intracranial or | | neck vessel dissection or occlusion.Stable 7 mm nodule in the right apex.Recommend a | | follow-up chest CT in one year.Dictated and Signed by: Lencho Silva MD | | Electronically signed: 2018 11:36 AM | |artery are widely patent. The left subclavian and visible axillary artery are | |widely patent. | | | |Right: The common carotid artery is widely patent. The internal carotid artery | |is widely patent. The vertebral artery is the nondominant artery. It is widely | |patent. There is no evidence for vessel dissection or occlusion. No | |significant atherosclerotic narrowing. | | | |Left: The left common carotid artery is widely patent. The left internal | |carotid artery is widely patent. The left vertebral artery is dominant. It is | |widely patent. There is no evidence for vessel dissection or occlusion. No | |significant atherosclerotic narrowing. | | | |NONVASCULAR: | | | |No areas of abnormal parenchymal enhancement. No cervical lymphadenopathy. | |Symmetric parotid and subarticular glands. Normal thyroid. Normal-appearing | |epiglottis. Symmetrically opposed focal cords. No vocal cord nodularity. No | |mediastinal lymphadenopathy, within the [id number]. Stable 7 mm nodule in | |the right apex. Bullous changes in the left apex. Small blebs in the right | |apex. No suspicious lytic or blastic bone lesions. Evidence of a healed | |sternal fracture. There appears to be fusion of the articular pillars at the | |level T3-T4 | | | |IMPRESSION - | | | |No CT evidence for an acute intracranial process. | | | |Scatter artifact limits evaluation of the posterior fossa and temporal lobes. | | | |No atherosclerotic disease or narrowing of the intracranial or neck vasculature. | | | |No evidence for intracranial or neck vessel dissection or occlusion. | | | |Stable 7 mm nodule in the right apex. | | | |Recommend a follow-up chest CT in one year. | | | |Dictated and Signed by: Lencho Silva MD | | Electronically signed: 2018 11:36 AM | + + + +---------+ + + | Performing | Address | City/State/[facility] | Phone Number | | Organization | | | | + +---------+ + + | [facility] | | | | + +---------+ + + XR Chest AP Portable (2018 10:06 AM PST) + + | Specimen | + + | | + + + + + | Narrative | Performed At | + + + | SINGLE AP CHEST 2018 9:56 AM CLINICAL HISTORY: FALL | [facility] | | WEAKNESS COMPARISON: Radiography September 13 and more remote imaging | | | FINDINGS: The cardiomediastinal silhouette and pulmonary | | | vasculature are unremarkable. A small nodular density is again | | | visible in the right lung apex and is similar to previous studies. | | | Minimal blunting of the left costophrenic angle and mild left | | | basilar reticular opacity are chronic, favoring scar. The lungs are | | | clear elsewhere without visible pneumothorax or definite pleural | | | effusion. No fracture is visible. There is mild to moderate | | | gaseous distention of the imaged stomach. IMPRESSION - 1. | | | NO RADIOGRAPHIC EVIDENCE OF TRAUMATIC INJURY OR NEW DISEASE IN THE | | | CHEST. 2. SIMILAR SMALL NODULAR DENSITY IN THE RIGHT LUNG APEX. | | | CONSIDER INTERVAL CT FOLLOW-UP RECOMMENDED IN JULY 2017. 3. | | | PROBABLE LEFT BASILAR PLEURAL-PARENCHYMAL SCAR. Dictated and | | | Signed by: Aditya Snyder MD Electronically signed: 2018 10:57 | | | AM | | + + + + + | Procedure Note | + + | Vic, Rad Results In - 2018 11:00 AM PST SINGLE AP CHEST 2018 9:56 AM | | | | CLINICAL HISTORY: FALL | | WEAKNESS | | | | COMPARISON: Radiography September 13 and more remote imaging | | | | FINDINGS: The cardiomediastinal silhouette and pulmonary vasculature are | | unremarkable. A small nodular density is again visible in the right lung apex | | and is similar to previous studies. Minimal blunting of the left costophrenic | | angle and mild left basilar reticular opacity are chronic, favoring scar. The | | lungs are clear elsewhere without visible pneumothorax or definite pleural | | effusion. No fracture is visible. There is mild to moderate gaseous distention | | of the imaged stomach. | | | | IMPRESSION - | | | | 1. NO RADIOGRAPHIC EVIDENCE OF TRAUMATIC INJURY OR NEW DISEASE IN THE CHEST. | | | | 2. SIMILAR SMALL NODULAR DENSITY IN THE RIGHT LUNG APEX. CONSIDER INTERVAL CT | | FOLLOW-UP RECOMMENDED IN JULY 2017. | | | | 3. PROBABLE LEFT BASILAR PLEURAL-PARENCHYMAL SCAR. | | | | Dictated and Signed by: Aditya Snyder MD | | Electronically signed: 2018 10:57 AM | + + + +---------+ + + | Performing | Address | City/State/Zipcode | Phone Number | | Organization | | | | + +---------+ + + | [facility] | | | | + +---------+ + + Magnesium (2018 10:01 AM PST) + +-------+ + + + | Component | Value | Ref Range | Performed | Pathologist | | | | | At | Signature | + +-------+ + + + | Magnesium | 2.1 | 1.8 - 2.5 mg/dL | [facility] | | | | [...] [address] | [place] | [phone] | | [facility] | | [address] | | | - LABORATORY | | | | + + + + + B Type Natriuretic Peptide (2018 10:01 AM PST) + +-------+ + + + | Component | Value | Ref Range | Performed | Pathologist | | | | | At | Signature | + +-------+ + + + | BNP | 45 | <100 pg/mL | [facility] | | | | | [...] [address] | [place] | [phone] | | [facility] | | [address] | | | - LABORATORY | | | | + + + + + Extra Blue Top Tube (2018 10:01 AM PST) + +-------+ + + + | Component | Value | Ref Range | Performed | Pathologist | | | | | At | Signature | + +-------+ + + + | Extra Blue | Done | | [facility] | | | Top Tube | | | [facility] | | | | | | [facility] [...] + | [facility] | [address] | [place] | [phone] | | [facility] | | [address] | | | - LABORATORY | | | | + + + + + Extra Lavender Top Tube (2018 10:01 AM PST) + +-------+ + + + | Component | Value | Ref Range | Performed | Pathologist | | | | | At | Signature | + +-------+ + + + | Extra | Done | | [facility] | | | Lavender | | | [facility] | | | Top Tube | | | MEDICAL | | | [...] | [facility] | [address] | [place] | [phone] | | [facility] | | [address] | | | - LABORATORY | | | | + + + + + Troponin I (2018 10:01 AM PST) + + + + + + | Component | Value | Ref Range | Performed | Pathologist | | | | | At | Signature | + + + + + + | Troponin I | <0.01Comment: Reference | <0.06 ng/mL | [facility] | | | | Ranges:0.00-0.06 = | | [facility] | | | | NORMAL>0.06 = | [...] | | | | | | [employer] | | | | | [...] ST. | [address] | [place], [place] | [phone] | | [facility] | | [address] | | | - LABORATORY | | | | + + + + + Comprehensive Metabolic Panel (2018 10:01 AM PST) + + + + + + | Component | Value | Ref Range | Performed | Pathologist | | | | | At | Signature | + + + + + + | Na | 136 | 136 - 149 | [facility] | | | | | mmol/L | [facility] | | | | | | MEDICAL | | | | | | CENTER - | | | | | | LABORATORY | | + + + + + + | K | 4.4 | 3.5 - 5.1 | [facility] | | | | | mmol/L | [facility] | | | | | | MEDICAL | | | | | | CENTER - | | | | | | LABORATORY | | + + + + + + | Cl | 104 | 98 - 109 mmol/L | [facility] | | | | | | [facility] | | | | | | MEDICAL | | | | | | CENTER - | | | | | | LABORATORY | | + + + + + + | CO2 | 22 (L) | 24 - 31 mmol/L | [facility] | | | | | | [facility] | | | | | | MEDICAL | | | | | | CENTER - | | | | | | LABORATORY | | + + + + + + | Anion Gap | 10 | 3 - 16 mmol/L | [facility] | | | | | | [facility] | | | | | | MEDICAL | | | | | | CENTER - | | | | | | LABORATORY | | + + + + + + | Glucose | 165 (H) | 70 - 109 mg/dL | [facility] | | | | | | [facility] | | | | | | MEDICAL | | | | | | CENTER - | | | | | | LABORATORY | | + + + + + + | BUN | 5 (L) | 7 - 18 mg/dL | [facility] | | | | | | [facility] | | | | | | MEDICAL | | | | | | CENTER - | | | | | | LABORATORY | | + + + + + + | Creatinine | 0.93 | 0.60 - 1.30 | [facility] | | | | | mg/dL | [facility] | | | | [facility] | [facility] | | | | | | CENTER - | | | | | | LABORATORY | | + + + + + + | eGFR if not | >60Comment: GLOMERULAR | >=60 | [facility] | | | | FILTRATION | mL/min/1.73m2 | [facility] | | | GHANAIAN | RATE,ESTIMATED | | MEDICAL | | | | mL/min/1.00o6Mamu than | | CENTER - | | [...] | | | | | mg/dL | [facility] | | | | | | MEDICAL | | | | | | CENTER - | | | | | | LABORATORY | | + + + + + + | Albumin | 3.1 (L) | 3.2 - 5.0 g/dL | [facility] | | | | | | [facility] | | | | | | MEDICAL | | | | | | CENTER - | | | | | | LABORATORY | | + + + + + + | Bilirubin | 0.6Comment: This is an | 0.1 - 1.5 mg/dL | [facility] | | | Total | appended report. These | | [facility] | | | | results have been | | MEDICAL | | | | appended to a previously | | CENTER - | | | | preliminary verified | | LABORATORY | | | | report. | | | | + + + + + + | Total | 5.5 (L) | 6.0 - 7.8 g/dL | [facility] | | | Protein | | | [facility] | | | | | | MEDICAL | | | | | | CENTER - | | | | | | LABORATORY | | + + + + + + | AST | 38Comment: This is an | 10 - 42 U/L | [facility] | | | | appended report. These | | [facility] | | | | results have been | | MEDICAL | | | | appended to a previously | | CENTER - | | | | preliminary verified | | LABORATORY | | | | report. | | | | + + + + + + | ALT | 17Comment: This is an | 6 - 45 U/L | [facility] | | | | appended report. These | | [facility] | | | | results have been | | MEDICAL | | | | appended to a previously | | CENTER - | | | | preliminary verified | | LABORATORY | | | | report. | | | | + + + + + + | Alkaline | 70Comment: This is an | 40 - 110 U/L | [facility] | | | Phosphatase | appended report. These | | [facility] | | | | | | [facility] | | | | | | MEDICAL | | | | | | CENTER - | | | | | | LABORATORY | | + + + + + + | Albumin/Jewell | 1.3 | 0.8 - 2.0 | [facility] | | | bulin Ratio | | | [facility] | | | | | | MEDICAL | | | | | | CENTER - | | | | | | LABORATORY | | + + + + + + | BUN/Creatin | 5.4 | | [facility] | | | ine Ratio | | | [facility] | | | | | | MEDICAL [...] + + | [facility] | [address] | [place] | [phone] | | [facility] | | [address] | | | - LABORATORY | | | | + + + + + CBC with Differential (2018 10:01 AM PST) + + + + + + | Component | Value | Ref Range | Performed | Pathologist | | | | | At | Signature | + + + + + + | WBC | 11.5 (H) | 4.0 - 11.0 K/uL | [facility] | | | | | | [facility] | | [facility] | [facility] | | | | | | CENTER - | | | | | | LABORATORY | | + + + + + + | RBC | 4.47 | 3.70 - 5.20 | [facility] | | | | | M/uL | [facility] | | | | | | [facility] | | | | | | CENTER - | | | | | | LABORATORY | | + + + + + + | Hemoglobin | 11.7 | 11.5 - 16.0 | [facility] | | | | | g/dL | [facility] | | | | | | [facility] | | | | | | CENTER - | | | | | | LABORATORY | | + + + + + + | Hematocrit | 37.0 | 34.0 - 47.0 % | [facility] | | | | | | [facility] | | | | | | [facility] | | | | | | CENTER - | | | | | | LABORATORY | | + + + + + + | MCV | 82.8 (L) | 83.0 - 101.0 fL | [facility] | | | | | | [facility] | | | | | | MEDICAL | | | | | | CENTER - | | | | | | LABORATORY | | + + + + + + | MCH | 26.2 (L) | 28.0 - 35.0 pg | [facility] | | | | | | [facility] | | | | | | MEDICAL | | | | | | CENTER - | | | | | | LABORATORY | | + + + + + + | MCHC | 31.6 (L) | 32.0 - 36.0 | [facility] | | | | | g/dL | [facility] | | | | | | MEDICAL | | | | | | CENTER - | | | | | | LABORATORY | | + + + + + + | RDW-CV | 14.6 | <15.0 % | [facility] | | | | | | [facility] | | | | | | MEDICAL | | | | | | CENTER - | | | | | | LABORATORY | | + + + + + + | RDW-SD | 43.4 | 35.1 - 46.3 fL | [facility] | | | | | | [facility] | | | | | | MEDICAL | | | | | | CENTER - | | | | | | LABORATORY | | + + + + + + | Platelet | 410 | 140 - 440 K/uL | [facility] | | | Count | | | [facility] | | | | | | MEDICAL | | | | | | CENTER - | | | | | | LABORATORY | | + + + + + + | MPV | 8.7 | 6.5 - 12.4 fL | [facility] | | | | | | [facility] | | | | | | MEDICAL | | | | | | CENTER - | | | | | | LABORATORY | | + + + + + + | % | 74.5 | 45.0 - 82.0 % | [facility] | | | Neutrophils | | | [facility] | | | | | | MEDICAL | | | | | | CENTER - | | | | | | LABORATORY | | + + + + + + | % | 20.9 | 20.0 - 45.0 % | [facility] | | | Lymphocytes | | | [facility] | | | | | | MEDICAL | | | | | | CENTER - | | | | | | LABORATORY | | + + + + + + | % Monocytes | 3.2 (L) | 4.0 - 12.0 % | [facility] | | | | | | [facility] | | | | | | MEDICAL | | | | | | CENTER - | | | | | | LABORATORY | | + + + + + + | % | 0.7 | 0.0 - 5.0 % | [facility] | | | Eosinophils | | | [facility] | | | | | | MEDICAL | | | | | | CENTER - | | | | | | LABORATORY | | + + + + + + | % Basophils | 0.3 | 0.0 - 1.0 % | [facility] | | | | | | [facility] | | | | | | MEDICAL | | | | | | CENTER - | | | | | | LABORATORY | | + + + + + + | % Immature | 0.4 | 0.0 - 0.4 % | [facility] | | | Granulocyte | | | [facility] | | | s | | | MEDICAL | | | | | | CENTER - | | | | | | LABORATORY | | + + + + + + | Absolute | 8.52 (H) | 1.80 - 8.50 | [facility] | | | Neutrophils | | K/uL | [facility] | | | | | | MEDICAL | | | | | | CENTER - | | | | | | LABORATORY | | + + + + + + | Absolute | 2.40 | 0.60 - 3.20 | [facility] | | | Lymphocytes | | K/uL | [facility] | | | | | | MEDICAL | | | | | | CENTER - | | | | | | LABORATORY | | + + + + + + | Absolute | 0.37 | 0.00 - 1.00 | [facility] | | | Monocytes | | K/uL | [facility] | | | | | | MEDICAL | | | | | | CENTER - | | | | | | LABORATORY | | + + + + + + | Absolute | 0.08 | 0.00 - 0.40 | [facility] | | | Eosinophils | | K/uL | [facility] | | | | | | MEDICAL | | | | | | CENTER - | | | | | | LABORATORY | | + + + + + + | Absolute | 0.04 | 0.00 - 0.10 | [facility] | | | Basophils | | K/uL | [facility] | | | | | | MEDICAL | | | | | | CENTER - | | | | | | LABORATORY | | + + + + + + | Absolute | 0.05 (H) | 0.00 - 0.03 | [facility] | | | Immature | | K/uL | [facility] | | | Granulocyte | | | MEDICAL | | | s | | | CENTER - | | | | | | LABORATORY | | + + + + + + | % nRBC | 0 | 0 - 2 per 100 | [facility] | | | | | WBC's | [facility] | | [facility] | | | MEDICAL | | | | | | CENTER - | | | | | | LABORATORY | | + + + + + + | Absolute | 0.00 | 0.00 - 0.01 | [facility] | | | nRBC | | K/uL | [facility] | [...] [address] | [place] | [phone] | | [facility] | | [address] | | | - LABORATORY | | | | + + + + + POC Glucose (2018 9:51 AM PST) + +---------+ + + + | Component | Value | Ref Range | Performed | Pathologist | | | | | At | Signature | + +---------+ + + + | Glucose, | 163 (H) | 70 - 109 mg/dL | [facility] | | | POC | | | [facility] | | | | | | MEDICAL | | | | | | CENTER - | | | | | | LABORATORY | | + +---------+ + + + + + | Specimen | + + | Blood | + + + + + + + | Performing | Address | City/State/Zipcode | Phone Number | | Organization | | | | + + + + + | [facility] | [address] | [place], [place] | [phone] | | [facility] | | [address] | | | - LABORATORY | | | | + + + + + ECG 12 lead (2018 9:49 AM PST) + + + + + + | Component | Value | Ref Range | Performed | Pathologist | | | | | At | Signature | + + + + + + | VENTRICULAR | 67 | BPM | [facility] | | | RATE EKG | | | | | + + + + + + | ATRIAL RATE | 67 | BPM | [facility] | | + + + + + + | P-R | 124 | ms | [facility] | | | INTERVAL | | | | | + + + + + + | QRS | 78 | ms | [facility] | | | DURATION | | | | | + + + + + + | Q-T | 422 | ms | [facility] | | | INTERVAL | | | | | + + + + + + | Q-T | 445 | ms | [facility] | | | INTERVAL | | | | | | (CORRECTED) | | | | | + + + + + + | P WAVE AXIS | 55 | degrees | [facility] | | + + + + + + | QRS AXIS | 8 | degrees | [facility] | | + + + + + + | T AXIS | 54 | degrees | [facility] | | + + + + + + | INTERPRETAT | Normal sinus rhythmLow | | [facility] | | | ION TEXT | voltage QRSNonspecific | | | | | | ST abnormality Anterior | | | | | | leadsWhen compared with | | | | | | ECG of 08-JAN-2018 | | | | | | 09:48, (Unconfirmed)T | | | | | | wave amplitude has | | | | | | increased in | | | | | | Anterolateral/lateral | | | | | | leadsConfirmed by | | | | | | RAFA WELLS MD ([id number]) | | | | | | on 01/09/2018 6:50:03 AM | | | | | | | [...] + | Diagnosis | + + | Lightheadedness - Primary Dizziness and giddiness | + + | Fall, initial encounter | + + | Generalized weakness Other malaise and fatigue | + + | Paroxysmal atrial tachycardia (HCC) Paroxysmal supraventricular tachycardia | + + | Chronic obstructive pulmonary disease, unspecified COPD type (HCC) | + + | Gastroesophageal reflux disease without esophagitis Esophageal reflux | + + | Hypothyroidism, unspecified type | + + | GARRY (obstructive sleep apnea) Obstructive sleep apnea (adult) (pediatric) | + + documented in this encounter Administered Medications + +--------+---------+------+------+------+ | Medication Order | MAR | Action | Dose | Rate | Site | | | Action | Date | | | | + +--------+---------+------+------+------+ + +---+ | albuterol 2.5 mg/3 mL nebulizer | | | solution 2.5 mg 2.5 mg, | | | Nebulization, RT EVERY 4 HOURS | | | PRN, Shortness of Breath, | | | Starting Carey 01/08/18 at 1705 | | + +---+ | | | + +---+ + +-------+ +--------+---+---+ | albuterol 2.5 mg/3 mL nebulizer | Given | 01/11/20 | 2.5 mg | | | | solution 2.5 mg 2.5 mg, | | 18 2:58 | | | | | Nebulization, EVERY 12 HOURS | | AM PST | | | | | INTERVAL, First dose on Fri | | | | | | | 01/09/18 at 1500, RT will | | | | | | | administer., | | | | | | + +-------+ +--------+---+---+ +---+---+ | | | +---+---+ + +-------+ +--------+---+---+ | albuterol 5 mg/mL concentrated | Given | 01/11/20 | 2.5 mg | | | | nebulizer solution 2.5 mg 2.5 | | 18 8:41 | | | | | mg, Nebulization, RT BID, First | | AM PST | | | | | dose on Fri01/09/18 at 2100, RT | | | | | | | will administer., | | | | | | + +-------+ +--------+---+---+ +-------+ +--------+---+---+ | Given | 01/10/20 | 2.5 mg | | | | | 18 8:21 | | | | | | PM PST | | | | +-------+ +--------+---+---+ +---+---+ | | | +---+---+ + +-------+ +-------+---+---+ | albuterol-ipratropium 2.5-0.5 | Given | 01/10/20 | 3 mLs | | | | mg/3 mL nebulizer solution 3 mL | | 18 3:52 | | | | | 3 mL, Nebulization, RT Q8H, First | | PM PST | | | | | dose on [facility] 01/08/18 at 1500 | | | | | | + +-------+ +-------+---+---+ +-------+ +-------+---+---+ | Given | 01/10/20 | 3 mLs | | | | | 18 5:32 | | | | | | AM PST | | | | +-------+ +-------+---+---+ | Given | 01/09/20 | 3 mLs | | | | | 18 3:07 | | | | | | PM PST | | | | +-------+ +-------+---+---+ +---+---+ | | | +---+---+ + +-------+ +--------+---+---+ | budesonide (PULMICORT) 0.5 mg/2 | Given | 01/10/20 | 0.5 mg | | | | mL nebulizer solution 0.5 mg | | 18 9:07 | | | | | 0.5 mg, Nebulization, RT BID, | | AM PST | | | | | First dose on Carey 01/08/18 at | | | | | | | 2100, RT will administer. Shake | | | | | | | well. Protect from light. Rinse | | | | | | | mouth after use., | | | | | | + +-------+ +--------+---+---+ +---+---+ | | | +---+---+ + +-------+ +--------+---+---+ | budesonide (PULMICORT) 0.5 mg/2 | Given | 01/11/20 | 0.5 mg | | | | mL nebulizer solution 0.5 mg | | 18 8:41 | | | | | 0.5 mg, Nebulization, RT BID, | | AM PST | | | | | First dose on Fri01/09/18 at | | | | | | | 2100, RT will administer. Shake | | | | | | | well. Protect from light. Rinse | | | | | | | mouth after use., | | | | | | + +-------+ +--------+---+---+ +-------+ +--------+---+---+ | Given | 01/10/20 | 0.5 mg | | | | | 18 8:22 | | | | | | PM PST | | | | +-------+ +--------+---+---+ + +---+ | | | + +---+ | dextrose 50% injection 12.5 g | | | 12.5 g, Intravenous, PRN, Low | | | Blood Sugar, Starting [facility] | | | 01/08/18 at 1444 | | + +---+ | | | + +---+ + +-------+ +---------+---+---+ | digoxin (LANOXIN) tablet 125 | Given | 01/11/20 | 125 mcg | | | | mcg 125 mcg, Oral, DAILY, First | | 18 8:19 | | | | | dose on [facility] 01/08/18 at 1450 | | AM PST | | | | + +-------+ +---------+---+---+ +-------+ +---------+---+---+ | Given | 01/10/20 | 125 mcg | | | | | 18 8:29 | | | | | | AM PST | | | | +-------+ +---------+---+---+ | Given | 01/09/20 | 125 mcg | | | | | 18 5:13 | | | | | | PM PST | | | | +-------+ +---------+---+---+ +---+---+ | | | +---+---+ + +-------+ +--------+---+---+ | gabapentin (NEURONTIN) capsule | Given | 01/11/20 | 800 mg | | | | 800 mg 800 mg, Oral, 3 TIMES | | 18 11:39 | | | | | DAILY PRN, pain, Starting Carey | | AM PST | | | | | 01/08/18 at 1444 | | | | | | + +-------+ +--------+---+---+ +-------+ +--------+---+---+ | Given | 01/11/20 | 800 mg | | | | | 18 8:19 | | | | | | AM PST | | | | +-------+ +--------+---+---+ | Given | 01/10/20 | 800 mg | | | | | 18 8:56 | | | | | | PM PST | | | | +-------+ +--------+---+---+ +---+---+ | | | +---+---+ + +-------+ +---------+---+---+ | HYDROcodone-acetaminophen | Given | 01/10/20 | 2 | | | | (NORCO) 5-325 mg per tablet 1-2 | | 18 1:11 | tablets | | | | tablet 1-2 tablet, Oral, EVERY 4 | | PM PST | | | | | HOURS PRN, Pain, Starting Carey | | | | | | | 01/08/18 at 1444 | | | | | | + +-------+ +---------+---+---+ +-------+ +---------+---+---+ | Given | 01/10/20 | 2 | | | | | 18 1:06 | tablets | | | | | AM PST | | | | +-------+ +---------+---+---+ | Given | 01/09/20 | 2 | | | | | 18 5:03 | tablets | | | | | PM PST | | | | +-------+ +---------+---+---+ +---+---+ | | | +---+---+ + +-------+ +-------+---+---+ | hydrOXYzine hydrochloride | Given | 01/10/20 | 25 mg | | | | (ATARAX) tablet 25 mg 25 mg, | | 18 8:57 | | | | | Oral, DAILY PRN, Itching, | | PM PST | | | | | Anxiety, Starting [facility] 01/08/18 at | | | | | | | 1444 | | | | | | + +-------+ +-------+---+---+ +---+---+ | | | +---+---+ + +-------+ +---------+---+---+ | iohexol (OMNIPAQUE 350) 350 | Given | 01/09/20 | 115 mLs | | | | mg/mL injection 115 mL 115 mL, | | 18 11:05 | | | | | Intravenous, ONCE PRN, Other, For | | AM PST | | | | | CT Scan, Starting [facility] 01/08/18 | | | | | | | at 1105, For 1 dose, Radiology | | | | | | + +-------+ +---------+---+---+ +---+---+ | | | +---+---+ + +-------+ +--------+---+---+ | levothyroxine (SYNTHROID) | Given | 01/11/20 | 75 mcg | | | | tablet 75 mcg 75 mcg, Oral, | | 18 6:45 | | | | | DAILY BEFORE BREAKFAST, First | | AM PST | | | | | dose on Carey 01/08/18 at 1900, | | | | | | | Give before breakfast., | | | | | | + +-------+ +--------+---+---+ +-------+ +--------+---+---+ | Given | 01/10/20 | 75 mcg | | | | | 18 6:05 | | | | | | AM PST | | | | +-------+ +--------+---+---+ +---+---+ | | | +---+---+ + +-------+ +--------+---+---+ | metFORMIN (GLUCOPHAGE) tablet | Given | 01/11/20 | 500 mg | | | | 500 mg 500 mg, Oral, 2 TIMES | | 18 8:19 | | | | | DAILY WITH BREAKFAST & DINNER, | | AM PST | | | | | First dose on Fri18 at | | | | | | | 1700, Follow hospital guidelines | | | | | | | to determine if metFORMIN should | | | | | | | be held following procedures | | | | | | | using IV iodinated contrast., | | | | | | + +-------+ +--------+---+---+ +-------+ +--------+---+---+ | Given | 01/10/20 | 500 mg | | | | | 18 5:11 | | | | | | PM PST | | | | +-------+ +--------+---+---+ +---+---+ | | | +---+---+ + +-------+ +---------+---+---+ | metoprolol tartrate (LOPRESSOR) | Given | 01/11/20 | 12.5 mg | | | | tablet 12.5 mg 12.5 mg, Oral, 2 | | 18 8:19 | | | | | TIMES DAILY, First dose on Fri | | AM PST | | | | | 01/09/18 at 1345 | | | | | | + +-------+ +---------+---+---+ +-------+ +---------+---+---+ | Given | 01/10/20 | 12.5 mg | | | | | 18 8:59 | | | | | | PM PST | | | | +-------+ +---------+---+---+ +---+---+ | | | +---+---+ + +-------+ + +---+---+ | nystatin (MYCOSTATIN) 100,000 | Given | 01/11/20 | 500,000 | | | | units/mL suspension 500,000 Units | | 18 8:18 | Units | | | | 500,000 Units, Noe & Celia, | | AM PST | | | | | 4 TIMES DAILY, First dose (after | | | | | | | last modification) on Carey | | | | | | | 01/08/18 at 2100, Ashok cordoba, | | | | | | | Indications: Oropharyngeal | | | | | | | Candidiasis | | | | | | + +-------+ + +---+---+ +-------+ + +---+---+ | Given | 01/10/20 | 500,000 | | | | | 18 8:55 | Units | | | | | PM PST | | | | +-------+ + +---+---+ | Given | 01/10/20 | 500,000 | | | | | 18 5:11 | Units | | | | | PM PST | | | | +-------+ + +---+---+ +---+---+ | | | +---+---+ + +-------+ +------+---+---+ | oxybutynin (DITROPAN) tablet 5 | Given | 01/11/20 | 5 mg | | | | mg 5 mg, Oral, 2 TIMES DAILY | | 18 6:45 | | | | | BEFORE MEALS, First dose on Fri | | AM PST | | | | | 01/09/18 at 1630, Give on an | | | | | | | empty stomach., | | | | | | + +-------+ +------+---+---+ +-------+ +------+---+---+ | Given | 01/10/20 | 5 mg | | | | | 18 5:11 | | | | | | PM PST | | | | +-------+ +------+---+---+ +---+---+ | | | +---+---+ + +-------+ +-------+---+---+ | pantoprazole (PROTONIX) DR | Given | 01/11/20 | 40 mg | | | | tablet 40 mg 40 mg, Oral, DAILY | | 18 6:44 | | | | | BEFORE BREAKFAST, First dose on | | AM PST | | | | | Carey 01/08/18 at 1450, Do not cut | | | | | | | or crush., Indication: GERD | | | | | | + +-------+ +-------+---+---+ +-------+ +-------+---+---+ | Given | 01/10/20 | 40 mg | | | | | 18 6:05 | | | | | | AM PST | | | | +-------+ +-------+---+---+ +---+---+ | | | +---+---+ + +-------+ +--------+---+---+ | potassium chloride (Klor-Con | Given | 01/11/20 | 20 mEq | | | | M20) ER tablet 20 mEq 20 mEq, | | 18 8:19 | | | | | Oral, DAILY, First dose on Carey | | AM PST | | | | | 01/08/18 at 1450, Tablet may be | | | | | | | cut where scored but do not | | | | | | | crush., | | | | | | + +-------+ +--------+---+---+ +-------+ +--------+---+---+ | Given | 01/10/20 | 20 mEq | | | | | 18 8:29 | | | | | | AM PST | | | | +-------+ +--------+---+---+ +---+---+ | | | +---+---+ + +-------+ +-------+---+---+ | predniSONE (DELTASONE) tablet | Given | 01/11/20 | 10 mg | | | | 10 mg 10 mg, Oral, DAILY, First | | 18 8:19 | | | | | dose on [facility] 01/08/18 at 1450 | | AM PST | | | | + +-------+ +-------+---+---+ +-------+ +-------+---+---+ | Given | 01/10/20 | 10 mg | | | | | 18 8:29 | | | | | | AM PST | | | | +-------+ +-------+---+---+ +---+---+ | | | +---+---+ + +-------+ +------+---+---+ | propranolol (INDERAL) tablet 5 | Given | 01/10/20 | 5 mg | | | | mg 5 mg, Oral, 4 TIMES DAILY, | | 18 12:16 | | | | | First dose on [facility] 01/08/18 at | | PM PST | | | | | 1700, Hold for SBP < 105, | | | | | | + +-------+ +------+---+---+ +-------+ +------+---+---+ | Given | 01/10/20 | 5 mg | | | | | 18 8:29 | | | | | | AM PST | | | | +-------+ +------+---+---+ +---+---+ | | | +---+---+ + +-------+ +---------+---+---+ | roflumilast (DALIRESP) tablet | Given | 01/10/20 | 500 mcg | | | | 500 mcg POM 500 mcg, Oral, | | 18 9:00 | | | | | NIGHTLY, First dose on Fri | | PM PST | | | | | 01/09/18 at 2100, Please walk | | | | | | | down patient's own med (daliresp) | | | | | | | to pharmacy for verification | | | | | | | prior to use. NOT STOCKED BY | | | | | | | PHARMACY. Please communicate to | | | | | | | the provider if the patient or | | | | | | | family is unable to supply the | | | | | | | medication. Thank you!, Bishop lAlen | | | | | | | Joe [facility] 01/09/2018 15:38, , , | | | | | | | Generic Name: Daliresp, Length | | | | | | | of Therapy: Indefinite, Reason | | | | | | | for Non-Formulary: COPD, | | | | | | | Anti-Inflammatory, Brand Name: | | | | | | | Roflumilast | | | | | | + +-------+ +---------+---+---+ +---+---+ | | | +---+---+ + +------+ +--------+-------+---+ | sodium chloride 0.9% (NS) bolus | Push | 01/09/20 | 70 mLs | 4200 | | | 70 mL 70 mL, Intravenous, | | 18 11:05 | | mL/hr | | | Administer over 1 Minutes, ONCE | | AM PST | | | | | PRN, for CT contrast study, | | | | | | | Starting Carey 01/08/18 at 1105, | | | | | | | For 1 dose, Radiology | | | | | | + +------+ +--------+-------+---+ +---+---+ | | | +---+---+ + +-------+ +--------+---+---+ | SUMAtriptan (IMITREX) tablet | Given | 01/10/20 | 100 mg | | | | 100 mg 100 mg, Oral, PRN, | | 18 11:55 | | | | | Migraine, Starting [facility] 01/08/18 | | AM PST | | | | | at 1444, May repeat initial dose | | | | | | | after 2 hours. Do not exceed 200 | | | | | | | mg in 24 hours., | | | | | | + +-------+ +--------+---+---+ +---+---+ | | | +---+---+ + +-------+ +-------+---+---+ | traMADol (ULTRAM) tablet 25 mg | Given | 01/11/20 | 25 mg | | | | 25 mg, Oral, EVERY 8 HOURS PRN, | | 18 6:44 | | | | | Pain, Starting Fri01/09/18 at | | AM PST | | | | | 1318 | | | | | | + +-------+ +-------+---+---+ +-------+ +-------+---+---+ | Given | 01/10/20 | 25 mg | | | | | 18 8:55 | | | | | | PM PST | | | | +-------+ +-------+---+---+ +---+---+ | | | +---+---+ + +-------+ +-------+---+---+ | ziprasidone (GEODON) capsule 80 | Given | 01/11/20 | 80 mg | | | | mg 80 mg, Oral, 2 TIMES DAILY, | | 18 8:18 | | | | | First dose on Fri01/08/18 at | | AM PST | | | | | 1450, Reproductive Risk: Use | | | | | | | appropriate handling precautions. | | | | | | | May cause prolongation of QT | | | | | | | interval. Take with food., | | | | | | + +-------+ +-------+---+---+ +-------+ +-------+---+---+ | Given | 01/10/20 | 80 mg | | | | | 18 8:57 | | | | | | PM PST | | | | +-------+ +-------+---+---+ | Given | 01/10/20 | 80 mg | | | | | 18 8:29 | | | | | | AM PST | | | | +-------+ +-------+---+---+ +---+---+ | | | +---+---+ documented in this encounter
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
--- OUTSIDE RECORDS SUMMARY | ~2019-01-15 | XMS | Encounter Summary ---
Demographics + + + | Address | [address] | | | [place] [address] | + + + | Home Phone [...] Team Providers + +------+ + | Care Ceo Name | Role | Phone | + +------+ + PCP | Unavailable | + +------+ + Encounter Details +--------+ + + + + | Date | Type | Department | Care Team | Description | +--------+ + + + + | 10/09/ | Hospital | [facility] | Avi, Guru Garzon, | | | 2010 - | Encounter | [facility] EM[facility]Y | MD [address] | | | | | CENTER [address] | [facility] [place] | | | 10/10/ | | [place], [place] | [place] [address] | | | 2010 | | [address] | [phone] | | | | | [phone] | | | +--------+ + + + [...] | | | | | | [place] [address] | | | | | | [phone] | | | | | | | [...] Performed At | + + + | [facility] | [facility] | | [address] [facility] | [facility] | | NONCONTRAST HEAD CT, 2330 HOURS, [...] | | | Transcribed Date/Time: 10/10/2010 11:50 Ground Nuclear Weapons Assembly Officer: | | | <Electronically Signed by Elías Cardoso MD> 10/11/10 0821 | | + + + + + | Procedure Note | + + | Reed, Rad Conversion - 04/02/2013 3:36 PM [facility] | | Diagnostic Imaging Department [address] [place] [address] | | NONCONTRAST HEAD CT, 2330 HOURS, [...] | | Signed by Elías Cardoso MD> 10/11/10 0821 | |inner table osteoma in the right [...] 11:33 | |Transcribed Date/Time: 10/10/2010 11:50 | |Ground Nuclear Weapons Assembly Officer: | |<Electronically Signed by Elías Cardoso MD> 10/11/10 0821 | + + + +---------+ + + | Performing | Address | City/State/Zipcode | Phone Number | | Organization | | | | + +---------+ + + | [place] | | | | | [facility] | | | | + +---------+ + + documented in this encounter Visit Diagnoses Not on filedocumented in this encounter"
--- OUTSIDE RECORDS SUMMARY | ~2019-01-15 | XMS | Encounter Summary ---
Demographics + + + | Address | [address] | | | [place] [address] | + + + | Home Phone [...] Providers + +------+ + | Care General Activities Therapist Name | Role | Phone | + +------+ + | Juan Cherry DO | PCP | | + +------+ + Encounter Details +--------+ + + + + | Date | Type | Department | Care Team | Description | +--------+ + + + + | 11/14/ | Abstract | [facility] | Jared Mcdonough, | | | 2014 | | CARDIOLOGY [address] | MD [address] [place] | | | | | [place], | [place], | | | | | [place] [address] | [place] [address] | | | | | [phone] | [phone] | | | | | | | [...] [place] | | | | | | [address] | | | | | | | | +--------+---------+ + + + | 11/24/ | Office | Cardiology | [place], | | | 2019 | Visit | | SINDHU Erickson [address] | | | | | | [place], | | | | | | [place] [address] | | | | | | [phone] | | | | | | | [...]
--- OUTSIDE RECORDS SUMMARY | ~2019-01-15 | XMS | Encounter Summary ---
Demographics + + + | Address | [address] | | | [place] [address] | + + + | Home Phone | | + + + | Preferred Language | Unknown | + + + | Marital Status | Single | + + + | Tenriism Affiliation | 1041 | + + + | Race | Unknown | + + + | Ethnic Group | Unknown | + + + Author + + + | Author | [facility] | | | and [place] | + + + | Organization | [facility] | | [...] Team Providers + +------+ + | Care Dry Cleaning Machine Operator Name | Role | Phone | + +------+ + | Ozzy Delcid MD | PCP | | + +------+ + Encounter Details +--------+ + + + + | Date | Type | Department | Care Team | Description | +--------+ + + + + | 09/28/ | Hospital | [facility] | Ozzie Hayes | | | 2011 | Encounter | MED CTR EMERGENCY | MD Ran [address] | | | | | [place] [address] | [address] [place] | | | | | [place], [place] | [place] [address] | | | | | [address] | [phone] | | | | | [phone] | | | +--------+ + + + [...] | | | | | | [place] [address] | | | | | | [phone] | | | | | | | | +--------+---------+ + + + documented as of this encounter Procedures + +--------+ + + + | Procedure Name | Priori | Date/Time | Associated Diagnosis | Comments | | | ty | | | | + +--------+ + + + | XR FOOT RIGHT 3 + VW | | 09/29/2011 | | Results for this | | | | 6:24 AM | | procedure are in the | | | | PDT | | results section. | + +--------+ + + + documented in this encounter Results XR Foot Right 3 + Vw (09/29/2011 6:24 AM PDT) + + | Specimen | + + | | + + + + + | Narrative | Performed At | + + + | [facility] | [facility] | | [address] [facility] | [facility] | | RIGHT FOOT: CLINICAL | DIAG IMG | | HISTORY: Trauma. FINDINGS: AP, lateral and oblique views | | | of the right foot show a minimally displaced oblique fract ure | | | through the medial margin of the proximal phalanx, adjacent to the | | | metatarsophalangeal joint. No other fracture is seen. There is | | | fusion of the interphalangeal joint of the 2nd toe. The other joint | | | relationships are normal. No radiographic soft tissue changes are | | | present. IMPRESSION: 1. MINIMALLY DISPLACED FRACTURE OF THE | | | MEDIAL, PROXIMAL PHALANX OF THE 2ND TOE. 2. FUSION OF THE | | | INTERPHALANGEAL JOINT OF THE 2ND TOE. Dictated Date/Time: | | | 09/29/2011 12:39 Transcribed Date/Time: 09/29/2011 13:00 | | | Plating Tank Operator: <Electronically Signed by Cesar Singh | | | MD Mikal> 09/29/11 2146 | | + + + + + | Procedure Note | + + | Reed, Rad Conversion - 04/02/2013 5:48 PM [facility] | | Diagnostic Imaging Department [address] [place] [address] | | RIGHT FOOT: CLINICAL HISTORY: Trauma. FINDINGS: | | AP, lateral and oblique views of the right foot show a minimally displaced oblique | | fracture through the medial margin of the proximal phalanx, adjacent to the | | metatarsophalangeal joint. No other fracture is seen. There is fusion of the | | interphalangeal joint of the 2nd toe. The other joint relationships are normal. No | | radiographic soft tissue changes are present. IMPRESSION: 1. MINIMALLY DISPLACED | | FRACTURE OF THE MEDIAL, PROXIMAL PHALANX OF THE 2ND TOE. 2. FUSION OF THE | | INTERPHALANGEAL JOINT OF THE 2ND TOE. Dictated Date/Time: 09/29/2011 12:39Transcribed | | Date/Time: 09/29/2011 13:00Transcriptionist: <Electronically Signed by Cesar Singh | | MD Mikal> 09/29/11 3135 | |other fracture is seen. There is fusion of the interphalangeal joint of the 2nd toe. The ot her joint | |relationships are normal. No radiographic soft tissue changes are present. | | | |IMPRESSION: | |1. MINIMALLY DISPLACED FRACTURE OF THE MEDIAL, PROXIMAL PHALANX OF THE 2ND TOE. | | | |2. FUSION OF THE INTERPHALANGEAL JOINT OF THE 2ND TOE. | | | |Dictated Date/Time: 09/29/2011 12:39 | |Transcribed Date/Time: 09/29/2011 13:00 | |Plating Tank Operator: | |<Electronically Signed by Cesar Ren MD> 09/29/11 2146 | + + + +---------+ + + [...]
--- OUTSIDE RECORDS SUMMARY | ~2019-01-15 | XMS | Encounter Summary ---
Demographics + + + | Address | [address] | | | [place] [address] | + + + | Home Phone [...] Providers + +------+ + | Care Certified Composites Technician Name | Role | Phone | [...] | | | | [facility] | [address] | [address] | | | | | EXERCISE | [place], | [address] [place] | | | | | | [place] [address] | [place], [place] | | | | | | Phone: | [phone] | | | | | | [phone] | Phone: | | | | | | Fax: | [phone] | | | | | | [phone] | Fax: | | | | | | | [phone] | +--------+--------+ + + + + Encounter Details +--------+---------+ + + + | Date | Type | Department | Care Team | Description | +--------+---------+ + + + | 08/13/ | Office | [facility] | Jared Mcdonough, | Chronic obstructive | | 2017 | Visit | MED CTR CARDIAC | [address] | pulmonary disease, | | | | REHABILITATION [address] | [address] [place], | unspecified COPD | | | | [address] [place] | [place] [address] | type (HCC) (Primary | | | | [place] [address] | [phone] | Dx) | | | | [phone] | | | +--------+---------+ + + + [...] documented as of this encounter Progress Notes Tricia Herron RRT - 08/13/2016 10:15 AM PDTPatient tolerated exercise sessio n without any complaints. Continue support and progression. Appointment duration: 60 minsElectronically signed by Tricia Herron RRT at 11:14 AM PDTdocumented in this encounter Plan of Treatment +--------+---------+ + + + | Date | Type | Specialty | Care Team | Description | +--------+---------+ + + + | 03/01/ | Office | Pulmonology | Mukul Clark MD | | | 2019 | Visit | | [address] | | | | | | [place] | | | | | | [address] | | | | | | | | +--------+---------+ + + + | 11/24/ | Office | Cardiology | [place], | | | 2019 | Visit | | [address] | | | | | | [place], | | | | | | [place] [address] | | | | | | [phone] | | | | | | | | +--------+---------+ + + + documented as of this encounter Visit Diagnoses + + | Diagnosis | + + | Chronic obstructive pulmonary disease, unspecified COPD type (HCC) - Primary | + + documented in this encounter"
--- OUTSIDE RECORDS SUMMARY | ~2019-01-15 | XMS | Encounter Summary ---
Demographics + + + | Address | [address] | | | [place] [address] | + + + | Home Phone [...] Team Providers + +------+ + | Care Charge Accounts Audit Clerk Name | Role | Phone | [...] + + | 12/11/ | Office | [facility] | Andriy Weber | Interstitial | | 2016 | Visit | [address] | MD [address] | cystitis (Primary | | | | [place] | [place] | Dx) | | | | [address] | [place] [address] | | | | | [phone] | [phone] | | | | | | | [...] u rethral dilatation. During her surgery at [place] for her paraesophageal hernia repair, she had [...] is being obtained, w ith a 20 Trinidadian catheter to evaluate urethral patency. Past Medical [...] 25G X 1-1/2" 3 ML MISC 0 Mmzeazajsh-THZU-Joxv-Cod 61-922-13-30 MG CAPS Take 1 capsule by mouth [...] takes this da rigoberto Respiratory Therapy Supplies [facility] Please provide patient with necessary CPAP supplies ( she did not specify, okay to send order as appropriate) Diagnosis Code(s)327.23 . Length of Need 99 months. Please send order to [facility]. 1 each 0 Respiratory Therapy Supplies [facility] Change CPAP back to 11-14 cm H2O. All necessary suppl ies. No oxygen bleed in. Diagnosis Code(s)327.23. Length of Need: Lifetime. Please send orde r to [facility]. This is not a new order, [...] Wt 77.565 kg (171 lb) | B [place] 31.27 kg/m2 General: Awake, alert, in no [...] of normal caliber. Catheterization with a 20 Trinidadian catheter revealed a postvoid residual of 15 [...] have not thoroughly proofread this note, and sports equipment racker erro rs may occur. documented in th [...] [place] | | | | | | [address] | | | | | | | | +--------+---------+ + + + | 11/24/ | Office | Cardiology | [place], | | | 2019 | Visit | | SINDHU Erickson [address] | | | | | | [place], | | | | | | [place] [address] | | | | | | [phone] | | | | | | | [...] 1.001 - 1.030 | | | | [place], | | | | | | [facility], [...] [address] | [place] | [phone] | | [facility] | | [address] | | | - LABORATORY | | | | + + + + + documented in this encounter Visit Diagnoses + + | Diagnosis | + + | Interstitial cystitis - Primary Chronic interstitial cystitis | + + documented in this encounter
--- OUTSIDE RECORDS SUMMARY | ~2019-01-15 | XMS | Encounter Summary ---
Demographics + + + | Address | [address] | | | [place] [address] | + + + | Home Phone [...] Team Providers + +------+ + | Care Correspondence Renew Clerk Name | Role | Phone | + +------+ + PCP | Unavailable | + +------+ + Encounter Details +--------+ + + + + | Date | Type | Department | Care Team | Description | +--------+ + + + + | 11/27/ | Hospital | [facility] | Ozzy Delcid, | | | 2009 - | Encounter | MED CTR OP REHAB | [address] | | | | | [address] [place] | [place] | | | 12/24/ | | [place] [address] | [address] | | | 2009 | | [phone] | | | +--------+ + + + [...] [place] | | | | | | [address] | | | | | | | | +--------+---------+ + + + | 11/24/ | Office | Cardiology | [place], | | | 2019 | Visit | | [address] | | | | | | [place] | | | | | | [place] [address] | | | | | | [phone] | | | | | | | | +--------+---------+ + + + documented as of this encounter Visit Diagnoses Not on filedocumented in this encounter"
--- OUTSIDE RECORDS SUMMARY | ~2019-01-15 | XMS | Encounter Summary ---
Demographics + + + | Address | [address] | | | [place] [address] | + + + | Home Phone [...] Providers + +------+ + | Care Belt Builder Name | Role | Phone | + +------+ + PCP | Unavailable | + +------+ + Encounter Details +--------+ + + + + | Date | Type | Department | Care Team | Description | +--------+ + + + + | 10/27/ | [facility] | [facility] | | | | 2008 - | Encounter | MED CTR OP REHAB | | | | | | [address] [place] | | | | 11/23/ | | [place] [address] | | | | 2008 | | [phone] | | | +--------+ + + + [...] [place] | | | | | | [address] | | | | | | | | +--------+---------+ + + + | 11/24/ | Office | Cardiology | [place], | | | 2020 | Visit | | SINDHU Erickson [address] | | | | | | [place], | | | | | | [place] [address] | | | | | | [phone] | | | | | | | | +--------+---------+ + + + documented as of this encounter Visit Diagnoses Not on filedocumented in this encounter"
--- OUTSIDE RECORDS SUMMARY | ~2019-01-15 | XMS | Encounter Summary ---
Demographics + + + | Address | [address] | | | [place] [address] | + + + | Home Phone [...] Team Providers + +------+ + | Care Scientific Programmer Name | Role | Phone | + +------+ + | Juan Cherry DO | PCP | | + +------+ + Reason for Visit +--------+ + | Reason | Comments | +--------+ + | Other | Initial Intake | +--------+ + Encounter Details +--------+ + + + + | Date | Type | Department | Care Team | Description | +--------+ + + + + | 08/09/ | Telephone | [facility] [place] | Jared Mcdonough, | Other (Initial | | 2013 | | CARDIOLOGY [address] | [address] [place] | Intake) | | | | [place], | [place], | | | | | [place] [address] | [place] [address] | | | | | [phone] | [phone] | | | | | | | [...] [place] | | | | | | [address] | | | | | | | | +--------+---------+ + + + | 11/24/ | Office | Cardiology | [place], | | | 2019 | Visit | | SINDHU Erickson [address] | | | | | | [place], | | | | | | [place] [address] | | | | | | [phone] | | | | | | | | +--------+---------+ + + + documented as of this encounter Visit Diagnoses Not on filedocumented in this encounter"
--- OUTSIDE RECORDS SUMMARY | ~2019-01-15 | XMS | Encounter Summary ---
Demographics + + + | Address | [address] | | | [place] [address] | + + + | Home Phone [...] Team Providers + +------+ + | Care Warp Knitter Helper Name | Role | Phone | + +------+ + | Juan Cherry DO | PCP | | + +------+ + Reason for Visit + + + | Reason | Comments | + + + | Treatment Plans | | + + + Encounter Details +--------+ + + + + | Date | Type | Department | Care Team | Description | +--------+ + + + + | 07/24/ | Telephone | [facility] [place] | Meghan Garcia MD | Treatment Plans | | 2019 | | SLEEP DISORDER [address] | | | | | [address] [place] | [place] | | | | | [place] [address] | [address] | | | | | [phone] | | | +--------+ + + + [...] | | | | | | [place] [address] | | | | | | [phone] | | | | | | | | +--------+---------+ + + + documented as of this encounter Visit Diagnoses Not on filedocumented in this encounter"
--- OUTSIDE RECORDS SUMMARY | ~2019-01-15 | XMS | Encounter Summary ---
Demographics + + + | Address | [address] | | | [place] [address] | + + + | Home Phone [...] Team Providers + +------+ + | Care Section Housekeeper Name | Role | Phone | + [...] | | not | [place], | [place] | | | | | elsewhere | [place] [address] | [place], [place] | | | | | classified | Phone: | [address] | | | | | Procedures | [phone] | Phone: | | | | | OR PULMONARY | Fax: | [phone] | | | | | REHAB W | [phone] | Fax: | | | | | EXER | | [phone] | +--------+--------+ + + + + Encounter Details +--------+---------+ + + + | Date | Type | Department | Care Team | Description | +--------+---------+ + + + | 12/14/ | Office | [facility] | Sandoval, Kevin, | COPD (chronic | | 2013 | Visit | MED CTR CARDIAC | MD [address] | obstructive | | | | REHABILITATION [address] | [place] | pulmonary disease) | | | | [address] [place] | [address] | ([facility]) (Primary Dx) | | | | [place] [address] | | | | | | [phone] | Mary Nunez RN | | +--------+---------+ [...] tachycardia and is wearing a Sylvester of [employer] which she will turn in sekou mapletonow. Today, sinus rhythm 90-98 bpm without ectopy. [...] reps. Her PFT doesn't qualify her for OR, so we will monitor her as a [...] [place] | | | | | | [address] | | | | | | | | +--------+---------+ + + + | 11/24/ | Office | Cardiology | [place], | | | 2019 | Visit | | SINDHU Erickson [address] | | | | | | [place], | | | | | | [place] [address] | | | | | | [phone] | | | | | | | | +--------+---------+ + + + documented as of this encounter Visit Diagnoses + + | Diagnosis | + + | COPD (chronic obstructive pulmonary disease) (HCC) - Primary Chronic airway | | obstruction, not elsewhere classified | + + documented in this encounter
--- OUTSIDE RECORDS SUMMARY | ~2019-01-15 | XMS | Encounter Summary ---
Demographics + + + | Address | [address] | | | [place] [address] | + + + | Home Phone [...] Team Providers + +------+ + | Care Box Folding Machine Operator Name | Role | Phone [...] | | | | | [address] | [address] [place], [place] | | | | | [place], [place] | [address] | | | | | [address] | | | | | | [phone] | | | +--------+ + + + [...] +----+---+ + + | | 0 | [place] | | | | 7 | 43-degrees [...] 11/22/15 1025 by | | eral | flxs-bby-jvjcxq catheter system; | Kelsie Gandhi RN | [...] [place] | | | | | | [address] | | | | | | | | +--------+---------+ + + + | 11/24/ | Office | Cardiology | [place], | | | 2020 | Visit | | SINDHU Erickson [address] | | | | | | [place], | | | | | | [place] [address] | | | | | | [phone] | | | | | | | [...]
--- OUTSIDE RECORDS SUMMARY | ~2019-01-15 | XMS | Encounter Summary ---
Demographics + + + | Address | [address] | | | [place] [address] | + + + | Home Phone | | + + + | Preferred Language | Unknown | + + + | Marital Status | Single | + + + | Latter-Day Affiliation | 1041 | + + + | Race | Unknown | + + + | Ethnic Group | Unknown | + + + Author + + + | Author | [facility] | | | and [place] | + + + | Organization | [facility] | | [...] Team Providers + +------+ + | Care Percussion Instrument Repairer Name | Role | Phone | + [...] [place], | | | | | | [place] [address] | | | | | | [phone] | | | +--------+ + + + [...] Speech Pathologist - 05/30/2016 [facility] [address] [place] [address] Cancellation/No Show Date: 05/30/2016 Patient Information Patient Name: Rosario Malik Date of : 1965 Age: 51 y.o. 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
--- OUTSIDE RECORDS SUMMARY | ~2019-01-15 | XMS | Encounter Summary ---
Demographics + + + | Address | [address] | | | [place] [address] | + + + | Home Phone [...] Providers + +------+ + | Care Road Advisor Name | Role | Phone | + [...] + + | 03/25/ | Office | [facility] | Daryl Hargrove | Diverticulitis of | | 2014 | Visit | CARE [address] | Ernie Sanabria MD | large intestine | | | | [place], [place] | [address] | without perforation | | | | [address] | [place] | or abscess without | | | | [phone] | [address] | bleeding (Primary | | | | [...] [place] | | | | | | [id number] | | | | | | | | +--------+---------+ + + + | 11/24/ | Office | Cardiology | [place], | | | 2019 | Visit | | SINDHU Erickson [address] | | | | | | [place] | | | | | | [place] [address] | | | | | | [phone] | | | | | | | [...] 1.001 - 1.030 | | | | [place], | | | | | | [facility], [...]
--- OUTSIDE RECORDS SUMMARY | ~2019-01-15 | XMS | Encounter Summary ---
Demographics + + + | Address | [address] | | | [place] [address] | + + + | Home Phone | | + + + | Preferred Language | Unknown | + + + | Marital Status | Single | + + + | Yazidism Affiliation | 1041 | + + + [...] Team Providers + +------+ + | Care Scenic Artist Name | Role | Phone | + [...] | Concussion | Aaron Kim MD | Nursing Care Partner [address] | | | Required | | with brief | [address] | [place] | | | | | loss of | [address] | [place], [place] | | | | | consciousnes | [place], | [address] | | | | | s Word | [place] [address] | Phone: | | | | | finding | Phone: | [phone] | | | | | difficulty | [phone] | Fax: | | | | | [phone] | Fax: | [phone] | | | | | (ICD-10-CM) | [phone] | | | | | | - [...] + + | 08/07/ | Hospital | [facility] | Aaron Rodriguez, | Concussion with | | 2017 | Encounter | MED CTR SPEECH | MD [address] | brief (less than one | | | | THERAPY [address] | [place], [place] | hour) loss of | | | | [place], | [address] | consciousness | | | | [place] [address] | | (Primary Dx); | | | | [phone] | Kathi Soto, | Impaired memory; | [...] | | | | send order to [facility] | | | | [...] | 0 | 10/13/19 | | | Fdzmfvucja-FFYT-Kwry | mouth as needed. | | | 16 | 7 | | -Cod [id number] MG | | | | | | [...] Speech Pathologist - 08/08/2016 11:40 AM PDT [facility] SPEECH THERAPY [address] [place] [address] Speech Therapy Daily Treatment Note Date: 08/07/2016 [...] Flowsheet Row Office Visit from 05/01/2016 in [facility] THERAPY PT OP Rehab Precautions Precautions None Rehab Learning Style Flowsheet [facility] T[facility] MA[employer]ER OP EVAL from 05/16/2016 in [facility] SPEECH THERAPY O ffice Visit from 05/01/2016 in [facility] THERAPY PT OP Learning Style Patient's Optimum [...] strategies- sent journal to support journaling,increased note salvadroin g and setting timers is working well. [...] | | | | [place] | | | | | | [address] | | | | | | | | +--------+---------+ + + + | 11/24/ | Office | Cardiology | [place], | | | 2019 | Visit | | SINDHU Erickson [address] | | | | | | [place], | | | | | | [place] [address] | | | | | | [phone] | | | | | | | [...]
--- OUTSIDE RECORDS SUMMARY | ~2019-01-15 | XMS | Encounter Summary ---
Demographics + + + | Address | [address] | | | [place] [address] | + + + | Home Phone [...] Providers + +------+ + | Care Animal Nutritionist Name | Role | Phone | + +------+ + PCP | Unavailable | + +------+ + Encounter Details +--------+ + + + + | Date | Type | Department | Care Team | Description | +--------+ + + + + | 08/18/ | Hospital | [facility] | Lencho Goss MD | | | 2000 | Encounter | MED CTR XRAY [address] | [address] | | | | | [address] [place] | [address] [place], [place] | | | | | [place] [address] | [address] | | | | | [phone] | | | +--------+ + + + [...] [place] | | | | | | [address] | | | | | | | | +--------+---------+ + + + | 11/24/ | Office | Cardiology | [place], | | | 2019 | Visit | | S[address]HU [address]ks[address] | | | | | | [place] | | | | | | [place] [address] | | | | | | [phone] | | | | | | | | +--------+---------+ + + + documented as of this encounter Visit Diagnoses Not on filedocumented in this encounter"
--- OUTSIDE RECORDS SUMMARY | ~2019-01-15 | XMS | Encounter Summary ---
Demographics + + + | Address | [address] | | | [place] [address] | + + + | Home Phone [...] Team Providers + +------+ + | Care Antenna Specialist Name | Role | Phone | [...] | | | | | pulmonary | [address] | [address] | | | | | disease, | [place], | [address] [place] | | | | | unspecified | [place] [address] | [place], [place] | | | | | COPD type | Phone: | [address] | | | | | (HCC) | [phone] | Phone: | | | | | Pulmonary | Fax: | [phone] | | | | | emphysema, | [phone] | Fax: | | | | | unspecified | | [phone] | | | | | emphysema | | | | | | | type ([facility]) | | | +--------+ + + + + + Encounter Details +--------+---------+ + + + | Date | Type | Department | Care Team | Description | +--------+---------+ + + + | 05/07/ | Office | [facility] | Danieljeremyjose Jared, | Mild persistent | | 2017 | Visit | MED CTR CARDIAC | [address] | asthma without | | | | REHABIL[address] [place], | complication | | | | [address] [place] | [place] [address] | (Primary Dx); | | | | [place] [address] | [phone] | Chronic obstructive | | | | [phone] | | pulmonary disease, | | | | | Germ[place], | unspecified COPD | | | | | Tricia Maynard RRT | type (HCC); | | | | | | Pulmonary [...] as of this encounter Progress Notes Tricia Herron, SUPERINTENDENT METERS - 05/07/2016 1:52 PM PDTMsChris Malik is a [age] year o ld female patient with history of COPD and Emphysema. Patient is a oxygen depend @ 2.5 to 3 lpm, patient states that she does not have to wear oxygen at nighttime. Patient states she w ears a bipap at nighttime. Patient states that she had a recent fall that resulted in a brok en nose and concussion, and has a fear of falling again. Has a doctor appointment to see if she qualifies for walker. Patient states that she was a smoker for 30 plus years, and quit in 2014. Exercise: Patient walking on treadmill at a speed of 1.0 without any grade. Patient was on 3 Lpm of liquid oxygen, patient starting SpO2 96% HR: 65 RR: 18. Patient had to stop after 2 minutes due to the fact she states she is becoming lightheaded. Patient rest for 1 minute a nd resume on the treadmill. Patient walked a total of 6.5 minutes at a speed of 1.0 incline of 2 degree. SpO2 96% HR: 68, RR: 20. Patient did not have any SOB, or labored respiration. Nutrition: Rate your Plate score: 3 Patient states that she is not eating, states that she lays in bed and drinks sweet tea all day long. Education: Received 1:1 education regarding also received Rafael: Living well w/chronic Cyndee g Disease book. Through conversation, patient appeared to have good comprehension. Psycho/Social: PHQ: Score: 24. under care of physician with history of bipolar Plan: Attend pulmonary rehab 2 days per week and gradually increase walking @ home to 30 mi nutes daily. document ed in this encounter Plan of Treatment +--------+---------+ + + + | Date | Type | Specialty | Care Team | Description | +--------+---------+ + + + | 03/01/ | Office | Pulmonology | Mukul Clark MD | | | 2019 | Visit | | [address] | | | | | | [place] | | | | | | [address] | | | | | | | | +--------+---------+ + + + | 11/24/ | Office | Cardiology | [place], | | | 2019 | Visit | | SINDHU Erickson [address] | | | | | | [place], | | | | | | [place] [address] | | | | | | [phone] | | | | | | | | +--------+---------+ + + + documented as of this encounter Visit Diagnoses + + | Diagnosis | + + | Mild persistent asthma without complication - Primary Unspecified asthma | + + | Chronic obstructive pulmonary disease, unspecified COPD type (HCC) | + + | Pulmonary emphysema, unspecified emphysema type (HCC) | + + documented in this encounter"
--- OUTSIDE RECORDS SUMMARY | ~2019-01-15 | XMS | Encounter Summary ---
Demographics + + + | Address | [address] | | | [place] [address] | + + + | Home Phone [...] + +------+ + | Care Director Of Cloud Services Name | Role | Phone | [...] | with brief | [address] | [place] | | | | n | loss of | [address] | [place], | | | | | consciousnes | [place], | [place] [address] | | | | | s | [place] [address] | Phone: | | | | | Post-concuss | Phone: | [phone] | | | | | ion vertigo | [phone] | Fax: | | | | | [id number] | Fax: | [phone] | | | | | (ICD-10-CM) | [phone] | | | | | | - [...] Description | +--------+---------+ + + + | 05/27/ | Office | [facility] | Aaron Rodriguez, | Dizziness (Primary | | 2017 | Visit | MED CTR THERAPY PT | MD [address] | Dx); Impaired | | | | OP [address] [place] | [place] | mobility and | | | | [place] | [phone] | activities of daily | | | | [address] | | living; Concussion | | | | [phone] | Lakeshia Cleary, PT | with brief (less | | | | | [address] | than one hour) loss | | | | | [place] | of consciousness; | | | | | [address] | Intractable acute | | | | [...] encounter Progress Notes Lakeshia Barkley, PT - 05/27/2016 10:34 AM PDTFormatting of this note might be different from t he original. [facility] CTR THERAPY PT OP [address] [place] [address] Physical Therapy Daily Treatment Note Date: 05/27/2016 Patient Information Patient Name: Rosario Malik Date of : 1965 Age: 51 y.o. Encounter Diagnoses Code Name Primary? R42 Dizziness Yes Z74.09 Impaired mobility and activities of daily living S06.0X9A Concussion with brief (less than one hour) loss of consciousness G44.311 Intractable acute post-traumatic headache Date of Onset: 04/02/2016 Referring Provider: Aaron Rodriguez MD # of PT Visits to Date: 3 Start Time: 1030 Stop time: 1100 Duration: 30 minutes Timed Treatment Codes: 30 minutes Rehab Precautions Office Visit from 05/01/[address] [facility] CTR THERAPY PT OP Rehab Precautions Precautions None Pain Assessment: Pain Scale Used: NUMERIC Pain Rating Pre Assessment: 0 Subjective: Pt reports that she is feeling a lot better, does not have symptoms very often and when she does they do not last long. (decreased dizziness/PAINTING/imbalance) Requested to have short session today; had granddaughter with her due to spring break Goals: Patient Reported Outcome Goals Patient Reported Outcome Goals: PSFS, DHI Patient Specific Functional Scale Goal 1: Improve sensory usage with a M-CTSIB score with n ormal sways in conditions 1-4 Patient Specific Functional Scale Goal 1 Status: 0 Patient Specific Functional Scale Goal 1 Status Comment: will assess at 10 th visit/DC Patient Specific Functional Scale Goal 2: Patient will be Independent in a home exercise pr ogram to address symptoms of dizziness/vertigo/imbalance to decrease fall risk and improve a bility to perform ADL's. Patient Specific Functional Scale Goal 2 Status: 3 Objective: Eye exercises: Smoother pursuits Saccades Visual motion: arc At parallel bar with intermittent UE support: Standing on airex with head turns(side to frida e and up/down) with eyes open/closed, standing with feet together with head turns (side to s shaggy and up/down) with eyes open/closed Step up with head turns with eyes fixed on discrete target: 2x20 sec (increased symptoms), pt with increased fatigue/SOB Walking at parallel bar: tandem (forward and back), high knees Assessment: pt required 2 rest breaks due to increased symptoms and fatigue but demonstrated improved b alance and vestibular function and tolerance to activities with less frequent/intense sympto ms compared to last therapy session. Pt is progressing well towards goals. Pt would benefit from cont. Therapy to progress through vestibular rehab to improve ability to complete daily tasks. Next Visit: cont. To progress vestibular rehab and balance Electronically signed by: Lakeshia Barkley PT, 05/27/2016 11:01 Patient Name: Rosario Malik/: 1965/ documented in this encou nter Plan of Treatment +--------+---------+ + + + | Date | Type | Specialty | Care Team | Description | +--------+---------+ + + + | 03/01/ | Office | Pulmonology | Mukul Clark MD | | | 2019 | Visit | | [address] | | | | | | [place], [place] | | | | | | [address] | | | | | | | | +--------+---------+ + + + | 11/24/ | Office | Cardiology | [place], | | | 2019 | Visit | | SINDHU Erickson [address] | | | | | | [place], | | | | | | [place] [address] | | | | | | [phone] | | | | | | | [...]
--- OUTSIDE RECORDS SUMMARY | ~2019-01-15 | XMS | Encounter Summary ---
Demographics + + + | Address | [address] | | | [place] [address] | + + + | Home Phone [...] Team Providers + +------+ + | Care High Density Finishing Operator Name | Role | Phone | + +------+ + | Juan Cherry DO | PCP | | + +------+ + Encounter Details +--------+ + + + + | Date | Type | Department | Care Team | Description | +--------+ + + + + | 04/30/ | Orders Only | [facility] [place] | Brian Miranda | Sprain of chest wall | | 2013 | | OCCUPATIONAL [facility]ALTH | MD [address] | (Primary Dx) | | | | [address] [place] | | | | [address] [place] | [place] [address] | | | | | [place], [place] | [phone] | | | | | [address] | | | | | | [phone] | | | +--------+ + + + [...] [place] | | | | | | [address] | | | | | | | | +--------+---------+ + + + | 11/24/ | Office | Cardiology | [place], | | | 2019 | Visit | | SINDHU Erickson [address] | | | | | | [place], | | | | | | [place] [address] | | | | | | [phone] | | | | | | | | +--------+---------+ + + + documented as of this encounter Visit Diagnoses + + | Diagnosis | + + | Sprain of chest wall - Primary Other specified sites of sprains and strains | + + documented in this encounter"
--- OUTSIDE RECORDS SUMMARY | ~2019-01-15 | XMS | Encounter Summary ---
Demographics + + + | Address | [address] | | | [place] [address] | + + + | Home Phone [...] Team Providers + +------+ + | Care Double Cutter Name | Role | Phone | + +------+ + | Juan Cherry DO | PCP | | + +------+ + Encounter Details +--------+ + + + + | Date | Type | Department | Care Team | Description | +--------+ + + + + | 05/05/ | Abstract | [facility] [place] | [place], | | | 2017 | | CARDIOLOGY [address] | SINDHU Erickson [address] | | | | | [place], | [place], | | | | | [place] [address] | [place] [address] | | | | | [phone] | [phone] | | | | | | | [...] [place] | | | | | | [address] | | | | | | | | +--------+---------+ + + + | 11/24/ | Office | Cardiology | [place], | | | 2019 | Visit | | SINDHU Erickson [address] | | | | | | [place], | | | | | | [place] [address] | | | | | | [phone] | | | | | | | | +--------+---------+ + + + documented as of this encounter Procedures + +--------+ + + + | Procedure Name | Priori | Date/Time | Associated Diagnosis | Comments | | | ty | | | | + +--------+ + + + | EXTERNAL LAB: CHANDLER | Routin | 03/18/2017 | | Results for this | | | e | | | procedure are in the | | | | | | results section. | + +--------+ + + + | EXTERNAL LAB: | Routin | 03/18/2017 | | Results for this | | GLUCOSE | e | | | procedure are in the | | | | | | results section. | + +--------+ + + + | EXTERNAL LAB: ALT | Routin | 03/18/2017 | | Results for this | | | e | | | procedure are in the | | | | | | results section. | + +--------+ + + + | EXTERNAL LAB: AST | Routin | 03/18/2017 | | Results for this | | | e | | | procedure are in the | | | | | | results section. | + +--------+ + + + | EXTERNAL LAB: | Routin | 03/18/2017 | | Results for this | | ALKALINE PHOSPHATASE | e | | | procedure are in the | | | | | | results section. | + +--------+ + + + | EXTERNAL LAB: | Routin | 03/18/2017 | | Results for this | | BILIRUBIN, TOTAL | e | | | procedure are in the | | | | | | results section. | + +--------+ + + + | EXTERNAL LAB: | Routin | 03/18/2017 | | Results for this | | ALBUMIN | e | | | procedure are in the | | | | | | results section. | + +--------+ + + + | EXTERNAL LAB: | Routin | 03/18/2017 | | Results for this | | PROTEIN, TOTAL | e | | | procedure are in the | | | | | | results section. | + +--------+ + + + | EXTERNAL LAB: | Routin | 03/18/2017 | | Results for this | | CALCIUM | e | | | procedure are in the | | | | | | results section. | + +--------+ + + + | EXTERNAL LAB: CARBON | Routin | 03/18/2017 | | Results for this | | DIOXIDE | e | | | procedure are in the | | | | | | results section. | + +--------+ + + + | EXTERNAL LAB: | Routin | 03/18/2017 | | Results for this | | CHLORIDE | e | | | procedure are in the | | | | | | results section. | + +--------+ + + + | EXTERNAL LAB: | Routin | 03/18/2017 | | Results for this | | POTASSIUM | e | | | procedure are in the | | | | | | results section. | + +--------+ + + + | EXTERNAL LAB: SODIUM | Routin | 03/18/2017 | | Results for this | | | e | | | procedure are in the | | | | | | results section. | + +--------+ + + + | EXTERNAL LAB: CBC | Routin | 03/18/2017 | | Results for this | | | e | | | procedure are in the | | | | | | results section. | + +--------+ + + + | EXTERNAL LAB: EGFR | Routin | 03/18/2017 | | Results for this | | | e | | | procedure are in the | | | | | | results section. | + +--------+ + + + | EXTERNAL LAB: | Routin | 03/18/2017 | | Results for this | | CREATININE | e | | | procedure are in the | | | | | | results section. | + +--------+ + + + | CBC WITH | Routin | 03/18/2017 | | Results for this | | DIFFERENTIAL | e | | | procedure are in the | | | | | | results section. | + +--------+ + + + | COMPREHENSIVE | Routin | 03/18/2017 | | Results for this | | METABOLIC PANEL | e | | | procedure are in the | | | | | | results section. | + +--------+ + + + documented in this encounter Results CBC with Differential (03/18/2017) + +-------+ + + + | Component | Value | Ref Range | Performed | Pathologist | | | | | At | Signature | + +-------+ + + + | MCH | 28.0 | 26.0 - 33.0 pg | | | + +-------+ + + + | MPV | 6.7 | 6.6 - 10.2 fL | | | + +-------+ + + + | MCHC | 33.5 | 30.0 - 36.0 % | | | + +-------+ + + + | % Basophils | 0.9 | 1.0 % | | | + +-------+ + + + + + | Specimen | + + | Blood | + + External Lab: CBC (03/18/2017) + + + + + + | Component | Value | Ref Range | Performed | Pathologist | | | | | At | Signature | + + + + + + | WBC, | 11.2 (A) | 11 | | | | External | | | | | + + + + + + | HGB, | 12.5 | | | | | External | | | | | + + + + + + | HCT, | 37.3 | | | | | External | | | | | + + + + + + | PLT, | 417 (A) | 375 | | | | External | | | | | + + + + + + | Neutrophils | 66.6 | | | | | %, | | | | | | External | | | | | + + + + + + | Lymphocytes | 25.7 | | | | | %, | | | | | | External | | | | | + + + + + + | Monocytes | 4.7 | | | | | %, External | | | | | + + + + + + | Eosinophils | 2.1 | | | | | %, | | | | | | External | | | | | + + + + + + | Neutrophils | 7.4 (A) | 6.9 | | | | , Absolute, | | | | | | External | | | | | + + + + + + | Lymphocytes | 2.9 | | | | | , Absolute, | | | | | | External | | | | | + + + + + + | Monocytes, | 0.50 | | | | | Absolute, | | | | | | External | | | | | + + + + + + | Eosinophils | 0.2 | | | | | , Absolute | | | | | + + + + + + | Basophils, | 0.1 | | | | | Absolute | | | | | + + + + + + | RBC, | 4.47 | | | | | External | | | | | + + + + + + | MCV, | 84 | | | | | External | | | | | + + + + + + | RDW, | 14.2 | | | | | External | | | | | + + + + + + Comprehensive Metabolic Panel (03/18/2017) + +-------+ + + + | Component | Value | Ref Range | Performed | Pathologist | | | | | At | Signature | + +-------+ + + + | Anion Gap | 9 | mmol/L | | | + +-------+ + + + | BUN/Creatin | 15.85 | | | | | ine Ratio | | | | | + +-------+ + + + + + | Specimen | + + | Blood | + + External Lab: BUN (03/18/2017) + +-------+ + + + | Component | Value | Ref Range | Performed | Pathologist | | | | | At | Signature | + +-------+ + + + | BUN, | 13 | | | | | External | | | | | + +-------+ + + + External Lab: Glucose (03/18/2017) + +-------+ + + + | Component | Value | Ref Range | Performed | Pathologist | | | | | At | Signature | + +-------+ + + + | Glucose, | 108 | | | | | External | | | | | + +-------+ + + + External Lab: ALT (03/18/2017) + +-------+ + + + | Component | Value | Ref Range | Performed | Pathologist | | | | | At | Signature | + +-------+ + + + | ALT, | 13 | | | | | External | | | | | + +-------+ + + + External Lab: AST (03/18/2017) + +-------+ + + + | Component | Value | Ref Range | Performed | Pathologist | | | | | At | Signature | + +-------+ + + + | AST, | 19 | | | | | External | | | | | + +-------+ + + + External Lab: Alkaline Phosphatase (03/18/2017) + +-------+ + + + | Component | Value | Ref Range | Performed | Pathologist | | | | | At | Signature | + +-------+ + + + | ALP, | 54 | | | | | External | | | | | + +-------+ + + + External Lab: Bilirubin, Total (03/18/2017) + +-------+ + + + | Component | Value | Ref Range | Performed | Pathologist | | | | | At | Signature | + +-------+ + + + | Bilirubin, | 0.5 | | | | | Total, | | | | | | External | | | | | + +-------+ + + + External Lab: Albumin (03/18/2017) + +-------+ + + + | Component | Value | Ref Range | Performed | Pathologist | | | | | At | Signature | + +-------+ + + + | Albumin, | 3.5 | | | | | External | | | | | + +-------+ + + + External Lab: Protein, Total (03/18/2017) + +-------+ + + + | Component | Value | Ref Range | Performed | Pathologist | | | | | At | Signature | + +-------+ + + + | Protein, | 6.2 | | | | | Total, | | | | | | External | | | | | + +-------+ + + + External Lab: Calcium (03/18/2017) + +-------+ + + + | Component | Value | Ref Range | Performed | Pathologist | | | | | At | Signature | + +-------+ + + + | Calcium, | 9.1 | | | | | External | | | | | + +-------+ + + + External Lab: Carbon Dioxide (03/18/2017) + +-------+ + + + | Component | Value | Ref Range | Performed | Pathologist | | | | | At | Signature | + +-------+ + + + | Carbon | 25 | | | | | Dioxide, | | | | | | External | | | | | + +-------+ + + + External Lab: Chloride (03/18/2017) + +-------+ + + + | Component | Value | Ref Range | Performed | Pathologist | | | | | At | Signature | + +-------+ + + + | Chloride, | 104 | | | | | External | | | | | + +-------+ + + + External Lab: Potassium (03/18/2017) + +-------+ + + + | Component | Value | Ref Range | Performed | Pathologist | | | | | At | Signature | + +-------+ + + + | Potassium, | 3.8 | | | | | External | | | | | + +-------+ + + + External Lab: Sodium (03/18/2017) + +-------+ + + + | Component | Value | Ref Range | Performed | Pathologist | | | | | At | Signature | + +-------+ + + + | Sodium, | 138 | | | | | External | | | | | + +-------+ + + + External Lab: eGFR (03/18/2017) + +-------+ + + + | Component | Value | Ref Range | Performed | Pathologist | | | | | At | Signature | + +-------+ + + + | eGFR, | >60 | | | | | External | | | | | + +-------+ + + + + + | Specimen | + + | Blood | + + External Lab: Creatinine (03/18/2017) + +-------+ + + + | Component | Value | Ref Range | Performed | Pathologist | | | | | At | Signature | + +-------+ + + + | Creatinine, | 0.8 | | | | | External | | | | | + +-------+ + + + + + | Specimen | + + | Blood | + + documented in this encounter Visit Diagnoses Not on filedocumented in this encounter"
--- OUTSIDE RECORDS SUMMARY | ~2019-01-15 | XMS | Encounter Summary ---
Demographics + + + | Address | [address] | | | [place] [address] | + + + | Home Phone [...] Team Providers + +------+ + | Care Laboratory Technology Teacher Name | Role | Phone | [...] | 05/27/ | Telephone | [facility] | Weber, Anrdiy | Other | | 2018 | | [address] | MD [address] | | | | | [place] | [address] [facility] | | | | | [address] | [place] [address] | | | | | [phone] | [phone] | | | | | | | [...] [place] | | | | | | [address] | | | | | | | | +--------+---------+ + + + | 11/24/ | Office | Cardiology | [place], | | | 2019 | Visit | | SINDHU Erickson [address] | | | | | | [place] | | | | | | [place] [address] | | | | | | [phone] | | | | | | | | +--------+---------+ + + + documented as of this encounter Visit Diagnoses Not on filedocumented in this encounter"
--- OUTSIDE RECORDS SUMMARY | ~2019-01-15 | XMS | Encounter Summary ---
Demographics + + + | Address | [address] | | | [place] [address] | + + + | Home Phone [...] Providers + +------+ + | Care Special Service Representative Name | Role | Phone | + +------+ + PCP | Unavailable | + +------+ + Encounter Details +--------+ + + + + | Date | Type | Department | Care Team | Description | +--------+ + + + + | 04/13/ | Hospital | [facility] | Lencho Goss MD | | | 2010 | Encounter | MED CTR GENERIC OP | [address], [place] | | | | | CONV DEPT [address] | [address] [place], [place] | | | | | [place], | [address] | | | | | [place] [address] | | | | | | [phone] | | | +--------+ + + + [...] [place] | | | | | | [address] | | | | | | | | +--------+---------+ + + + | 11/24/ | Office | Cardiology | [place], | | | 2019 | Visit | | SINDHU Erickson [address] | | | | | | [place], | | | | | | [place] [address] | | | | | | [phone] | | | | | | | | +--------+---------+ + + + documented as of this encounter Visit Diagnoses Not on filedocumented in this encounter"
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
--- OUTSIDE RECORDS SUMMARY | ~2019-01-15 | XMS | Encounter Summary ---
Demographics + + + | Address | [address] | | | [place] [address] | + + + | Home Phone [...] Team Providers + +------+ + | Care Ski Production Supervisor Name | Role | Phone | + +------+ + PCP | Unavailable | + +------+ + Encounter Details +--------+ + + + + | Date | Type | Department | Care Team | Description | +--------+ + + + + | 01/12/ | [facility] | [facility] | | | | 2008 | Encounter | MED CTR LABORATORY | | | | | | [address] | | | | | | [place] | | | | | | [address] | | | | | | [phone] | | | +--------+ + + + [...] [place] | | | | | | [address] | | | | | | | | +--------+---------+ + + + | 11/24/ | Office | Cardiology | [place], | | | 2020 | Visit | | SINDHU Erickson [address] | | | | | | [place], | | | | | | [place] [address] | | | | | | [phone] | | | | | | | | +--------+---------+ + + + documented as of this encounter Visit Diagnoses Not on filedocumented in this encounter"
--- OUTSIDE RECORDS SUMMARY | ~2019-01-15 | XMS | Encounter Summary ---
Demographics + + + | Address | [address] | | | [place] [address] | + + + | Home Phone [...] Team Providers + +------+ + | Care Correspondent Name | Role | Phone | + [...] + | 09/16/ | Telephone | [facility] | Kevin Sandoval, | Appointment | | 2014 | | PULMONARY [address] | MD [address] | (CANCELLING | | | | [place], | [place] | APPOINTMENT) | | | | [place] [address] | [address] | | | | | [phone] | | | +--------+ + + + [...] | | | | | | [place] [address] | | | | | | [phone] | | | | | | | | +--------+---------+ + + + documented as of this encounter Visit Diagnoses Not on filedocumented in this encounter"
--- OUTSIDE RECORDS SUMMARY | ~2019-01-15 | XMS | Encounter Summary ---
Demographics + + + | Address | [address] | | | [place] [address] | + + + | Home Phone [...] Team Providers + +------+ + | Care Trim [place] Name | Role | Phone | + +------+ + | Ozzy Delcid MD | PCP | | + +------+ + Encounter Details +--------+ + + + + | Date | Type | Department | Care Team | Description | +--------+ + + + + | 09/16/ | Hospital | [facility] | Yecenia Gallegos | | | 2011 | Encounter | MED CTR EMERGENCY | Yinka Aguirre MD [address] | | | | | CENTER [address] | [facility] | | | | | [place] | [place] [address] | | | | | [address] | [phone] | | | | | [phone] | | | +--------+ + + + [...] 03/01/ | Office | Pulmonology | Mukul Clrak [...] | | | | | | [place] [address] | | | | | | [phone] | | | | | | | [...] 99 | 70 - 109 mg/dL | TANISHA [...] | >60Comment: For | >60 mL/min/A | TANISHA | | | GFR | -Americans, | [...] 137 | 136 - 149 mEq/L | [facility] | | | | | [...] | 7.5 | 6.0 - 17.0 | [facility] | [...] + | [facility] | [address] | [place], [place] | [phone] | | [facility] | | [address] | | | - LABORATORY | | | | + + + + + | [facility] | [address] | [place], [place] | | | [facility] | | [address] | | | - LABORATORY | | | | + + + + + documented in this encounter Visit Diagnoses Not on filedocumented in this encounter"
--- OUTSIDE RECORDS SUMMARY | ~2019-01-15 | XMS | Encounter Summary ---
Demographics + + + | Address | [address] | | | [place] [address] | + + + | Home Phone [...] Team Providers + +------+ + | Care Chin Strap Sewer Name | Role | Phone | + +------+ + | Juan Cherry DO | PCP | | + +------+ + Encounter Details +--------+ + + + + | Date | Type | Department | Care Team | Description | +--------+ + + + + | 05/03/ | Hospital | [facility] | Ozzie Hayes | | | 2012 | Encounter | MED CTR EMERGENCY | MD Ran [address] | | | | | CENTER [address] | [address] [facility] | | | | | [place], [place] | [place] [address] | | | | | [address] | [phone] | | | | | [phone] | | | +--------+ + + + [...] [place] | | | | | | [address] | | | | | | | | +--------+---------+ + + + | 11/24/ | Office | Cardiology | [place], | | | 2019 | Visit | | SINDHU Erickson [address] | | | | | | [place], | | | | | | [place] [address] | | | | | | [phone] | | | | | | | | +--------+---------+ + + + documented as of this encounter Visit Diagnoses Not on filedocumented in this encounter"
--- OUTSIDE RECORDS SUMMARY | ~2019-01-15 | XMS | Encounter Summary ---
Demographics + + + | Address | [address] | | | [place] [address] | + + + | Home Phone [...] Providers + +------+ + | Care Rn Rehab Name | Role | Phone | + [...] + + | 05/30/ | Office | [facility] | Guru Henao | Acute pain of right | | 2018 | Visit | CARE [address] | MD Aleyda [address] | wrist (Primary Dx); | | | | [place] | [place] | Osteoarthritis of | | | | [address] | [address] | first | | | | [phone] | | carpometacarpal | | | | [...] thumb and fingers, unscrew a jar lid, forest management professor an object, or turn a door handle or a mccallum. You may find yourself dropping things. Weather may also make the thumb sage t. The joint may swell. With time the thumb may become stiff or deformed. Date Last Reviewed: 06/24/201619995541-5301 [employer] [address] [place] [address]. All righ ts reserved. This information is not intended as a substitute for professional medical care. Always follow your healthcare professional's instructions. documented in this encounter Progress Notes Jayce Ya, Shoe Cutter - 05/30/2017 8:15 AM PDTVerified name and [...] persistent, new or progressive associated symptoms. Guru BlakefMMiryam documented in th is encounter Plan of [...] [place] | | | | | | [id number] | | | | | | | | +--------+---------+ + + + | 11/24/ | Office | Cardiology | [place], | | | 2019 | Visit | | SINDHU Erickson [address] | | | | | | [place], | | | | | | [place] [address] | | | | | | [phone] | | | | | | | | +--------+---------+ + + + documented as of this encounter Visit Diagnoses + + | Diagnosis | + + | Acute pain of right wrist - Primary | + + | Osteoarthritis of first carpometacarpal (CMC) joint of one hand | + + documented in this encounter
--- OUTSIDE RECORDS SUMMARY | ~2019-01-15 | XMS | Encounter Summary ---
Demographics + + + | Address | [address] | | | [place] [address] | + + + | Home Phone | | + + + | Preferred Language | Unknown | + + + | Marital Status | Single | + + + | Mandaen Affiliation | 1041 | + + + | Race | Unknown | + + + | Ethnic Group | Unknown | + + + Author + + + | Author | [facility] | | | and [place] | + + + | Organization | [facility] | | | [...] Providers + +------+ + | Care Manager Linux Name | Role | Phone | + +------+ + | Ozzy Delcid MD | PCP | | + +------+ + Encounter Details +--------+ + + + + | Date | Type | Department | Care Team | Description | +--------+ + + + + | 09/16/ | Hospital | [facility] | Yecenia Gallegos | | | 2011 | Encounter | MED CTR EMERGENCY | Yinka Aguirre MD [address] | | | | | CENTER [address] | [facility] | | | | | [place] | [place] [address] | | | | | [address] | [phone] | | | | | [phone] | | | +--------+ + + + [...] [place], | | | | | | [place] [address] | | | | | | [phone] | | | | | | | [...] + | [facility] | [address] | [place], [place] | [phone] | | [facility] | | [address] | | | - LABORATORY | | | | + + + + + | [facility] | [address] | [place], [place] | | | [facility] | | [address] | | | - LABORATORY | | | | + + + + + documented in this encounter Visit Diagnoses Not on filedocumented in this encounter"
--- OUTSIDE RECORDS SUMMARY | ~2019-01-15 | XMS | Encounter Summary ---
Demographics + + + | Address | [address] | | | [place] [address] | + + + | Home Phone [...] Team Providers + +------+ + | Care Buttonhole Marker Name | Role | Phone | [...] + | 07/14/ | Telephone | [facility] [place] | Ana Laura Lopez, | Other | | 2012 | | CONVENIENT CARE [address] | RN | | | | | [address] [place] | | | | | | [place] | | | | | | [address] | | | | | | [phone] | | | +--------+ + + + [...] [place] | | | | | | [address] | | | | | | | | +--------+---------+ + + + | 11/24/ | Office | Cardiology | [place], | | | 2020 | Visit | | SINDHU Erickson [address] | | | | | | [place], | | | | | | [place] [address] | | | | | | [phone] | | | | | | | | +--------+---------+ + + + documented as of this encounter Visit Diagnoses Not on filedocumented in this encounter"
--- OUTSIDE RECORDS SUMMARY | ~2019-01-15 | XMS | Encounter Summary ---
Demographics + + + | Address | [address] | | | [place] [address] | + + + | Home Phone [...] Team Providers + +------+ + | Care Long Line Teamster Name | Role | Phone | + [...] | | | | unspecified | | [address] | | | | | laterality | | Phone: | | | | | Primary | | [phone] | | | | | localized | | Fax: | | | | | osteoarthros | | [phone] | | | | | is of hand, | | | | | | | unspecified | | | | | | | laterality | | | | | | | [[id number] | | | | | | | Procedures | | | | | | | CO REPAIR | | | | | | [...] + + | 06/18/ | Hospital | [facility] | Jesus Brady | | | 2018 | Encounter | MED CTR OR INTRA OP | J, DO [address] | | | | | [address] | [place], [place] | | | | | [place], [place] | [address] | | | | | [address] | [phone] | | | | | [phone] | | | +--------+ + + + [...] documented as of this encounter Discharge Instructions Daniela Madsen RN - 06/17/2018JUAN CARRILLO Follow all instructions you are given for how long not to eat or drink before your proce dure. Be sure your doctor knows what medicines and drugsyou take. This includes gdtb-xnu-zkp nter medicines, herbs, supplements, alcohol or other [...] adam p you safe. Date Last Reviewed: 01/25/201619990150-8396 [employer] [address] [place] [address], [place] [address]. All righ ts reserved. This information is not intended as a substitute for professional medical care. Always follow your healthcare professional's instructions. [facility] Post-op Instructions - Thumb Surgery The following instructions are meant to guide you following surgery until your first post-o perative visit 7-12 days later. For any problems or questions, please call our office at [phone], Friday through Friday, 9:00 am - 5:00 [...] that you may have received from the [facility], advice from friends, family members, ecclesThe Dayton Foundationtical leaders, grocery store clerks, fox lee, Anu, Dr. Jain, Dr. Oz, sports heroes, etc. If unsure, please call our office. Thank you, Jesus Brady D.O. [facility] [address] [place] [address] Your post op appointment is scheduled for Friday06/29/18 at 9:15am. Please check in at 8:45 am for X-rays at the [facility]. documented in this encounter Medications at Time [...] times | | | | | | | daily. | | | [...] | | | | [facility]. | | | | | [...] | 1 | 03/13/19 | | | (BARBARA M20) 20 | mouth Daily. | tablet [...] | | | | [place] | | | | | | [address] | | | | | | | | +--------+---------+ + + + | 11/24/ | Office | Cardiology | [place], | | | 2020 | Visit | | SINDHU Erickson [address] | | | | | | [place], | | | | | | [place] [address] | | | | | | [phone] | | | | | | | | +--------+---------+ + + + documented as of this encounter Procedures + +--------+ + + + | Procedure Name | Priori | Date/Time | Associated Diagnosis | Comments | | | ty | | | | + +--------+ + + + | FL ÁNGEL STATS NO | Routin | 06/18/2018 | | [...] documented in this encounter Results MICKI Tijerina Stats No Charge (06/18/2018 3:21 PM PDT) + [...] [address] | [place] | [phone] | | [facility] | | [address] | | | - LABORATORY | | [...] ONCE PRN, Wheezing, | | | Starting [facility] 06/18/18 at 1306, | | | For 1 dose, RT will administer., | | | Pre-op | | + +---+ | | | + +---+ | albuterol 2.5 mg/3 mL nebulizer | | | solution 2.5 mg 2.5 mg, | | | Nebulization, ONCE PRN, Wheezing, | | | Starting [facility] 06/18/18 at 1542, | | | For [...] | | | | | Wheezing, Starting Carey 06/18/18 at | | | | | [...]
--- OUTSIDE RECORDS SUMMARY | ~2019-01-15 | XMS | Encounter Summary ---
Demographics + + + | Address | [address] | | | [place] [address] | + + + | Home Phone [...] Providers + +------+ + | Care Supervisor Graphite Name | Role | Phone | + +------+ + | Juan Cherry DO | PCP | | + +------+ + Encounter Details +--------+ + + + + | Date | Type | Department | Care Team | Description | +--------+ + + + + | 02/26/ | Hospital | [facility] | Dio Yun | Dysphagia, | | 2017 | Encounter | MED CTR XRAY [address] | MD [address] | unspecified type | | | | [place] | [address] | | | | | [place] [address] | [place], [place] | | | | | [phone] | [address] | | | | | | [phone] | | | | | | | [...] | | | | | order to [facility]. | | | | | + [...] | | | | | | | [facility]. | | | | | | | [...] | 0 | 10/13/19 | | | Pcormjuzzh-HPPE-Ncnj | mouth as needed. | | | 16 | 7 | | -Cod [id number] MG | | | | | | [...] | | | | | | [place] [address] | | | | | | [phone] | | | | | | | [...] + + documented in this encounter Results [place] UGI (02/27/2016 8:46 AM PST) + + [...]
--- OUTSIDE RECORDS SUMMARY | ~2019-01-15 | XMS | Encounter Summary ---
Demographics + + + | Address | [address] | | | [place] [address] | + + + | Home Phone [...] Team Providers + +------+ + | Care Spiral Weaver Name | Role | Phone | + [...] | Concussion | Aaron Kim MD | Radius Corner Machine Operator [address] | | | Required | | with brief | [address] | [place] | | | | | loss of | [address] | [place], [place] | | | | | consciousnes | [place], | [address] | | | | | s Word | [place] [address] | Phone: | | | | | finding | Phone: | [phone] | | | | | difficulty | [phone] | Fax: | | | | | [phone] | Fax: | [phone] | | | | | (ICD-10-CM) | [phone] | | | | | | - [...] | +--------+ + + + + | 08/21/ | Hospital | [facility] | Aaron Rodriguez, | Impaired memory | | 2017 | Encounter | MED CTR SPEECH | MD [address] | (Primary Dx); Word | | | | THERAPY [address] | [place] | finding difficulty | | | | [address] [place], | [address] | | | | | [place] [address] | | | | | | [phone] | Kathi Soto, | | | | [...] | | | order to [facility]. | | | | | [...] | | | | [facility]. | | | | | [...] | 0 | 10/13/19 | | | Vnlsdaecpj-LEND-Vveh | mouth as needed. | | | 16 | 7 | | -Cod [id number] MG | | | | | | [...] Progress Notes Kathi Soto, Speech Pathologist - 08/21/2016 2:14 PM PDT [facility] [address] [facility] [address] Speech Therapy Daily Treatment Note Date: 08/21/2016 Patient Information Patient Name: Rosario Malik Date of : 1965 Age: 51 y.o. Encounter Diagnoses Code Name Primary? R41.3 Impaired memory Yes R47.89 Word finding difficulty Date of Onset: 03/15/2016 Referring Provider: Aaron Rodriguez MD Rehab Precautions Flowsheet Row Office Visit from 05/01/2016 in [facility] THERAPY PT OP Rehab Precautions Precautions None Rehab Learning Style Flowsheet Row [facility] MIME ARTIST OP EVAL from 05/16/2016 in [facility] SPEECH THERAPY O ffice Visit from 05/01/2016 in [facility] THERAPY PT OP Learning Style Patient's Optimum Learning Style observation, performance of task listening, reading, obs ervation, performance of task Today's Treatment Start Time: 1018 Stop time: 1110 Duration: 52 minutes Timed Treatment Codes: 45 minutes # of Speech Visits to Date: 7 Pain Assessment: Subjective:Pt arrived to for 1:1 tx. Pt recently completed baking activity and was able to recall step/step directions and ingredients for delayed memory tasks, still needs encoura gemalfredo to complete HEP and participate in positive social interactions to support carryover of techniques into home environment. Objective/Assessment: Discussed HEP: quilt group, 5/min social interactions, 5-30 min brain workout each day, wor d finding breakdowns in conversation (go through it/ not around it. Journal daily events, co mmercial activity (recall after 30 minute episode) Discussed/targeted use of memory strategies- word chaining, word pairing, visualization, an d repetition. Education and training re: pausing prior to talking to organize thoughts, reduced rate and increased wait time, describe function to support word finding. Plan: Target immediate recall with list learning and story recall. Target word finding with actions/objects, and target speed with response time. Discuss/review underlying reason for deficits. Target higher level memory/speed activities. Electronically signed by: Kathi Soto Speech Pathologist, 08/21/2016 14:22 Patient Name: Rosario Malik/: 1965/ docum ented in this encounter Plan of Treatment +--------+---------+ + + + | Date | Type | Specialty | Care Team | Description | +--------+---------+ + + + | 03/01/ | Office | Pulmonology | Mukul Clark MD | | | 2019 | Visit | | [address] | | | | | | [place] | | | | | | [id number] | | | | | | | | +--------+---------+ + + + | 11/24/ | Office | Cardiology | [place], | | | 2019 | Visit | | SINDHU Erickson [address] | | | | | | [place], | | | | | | [place] [address] | | | | | | [phone] | | | | | | | [...] + | Diagnosis | + + | Impaired memory - Primary Memory loss | + + | Word finding difficulty Other speech disturbance | + + documented in this encounter"
--- OUTSIDE RECORDS SUMMARY | ~2019-01-15 | XMS | Encounter Summary ---
Demographics + + + | Address | [address] | | | [place] [address] | + + + | Home Phone [...] Team Providers + +------+ + | Care Internal Review And Audit Compliance Name | Role | Phone | + +------+ + PCP | Unavailable | + +------+ + Encounter Details +--------+ + + + + | Date | Type | Department | Care Team | Description | +--------+ + + + + | 10/15/ | Hospital | [facility] | Berna Vizcaino MD | Dizziness; | | 2010 | Encounter | CONVERSION DEP [address] | [address] | [place]; | | | | [address] | [place] [address] | [place] | | | | [place], [place] | [phone] | | | | | [address] | | | | | | [phone] | | | +--------+ + + + [...] [place] | | | | | | [address] | | | | | | | | +--------+---------+ + + + | 11/24/ | Office | Cardiology | [place], | | | 2019 | Visit | | SINDHU Erickson [address] | | | | | | [place], | | | | | | [place] [address] | | | | | | [phone] | | | | | | | [...] EXTERNAL LAB | | Testing performed at [facility];[address] [place] [address];[place] [address] APPEARANCE | | | CLEAR Testing performed at | | | [facility];[address] [place] [address];[place] [address] Tube Number, CSF | | | 1 Testing performed at [facility] [address] | | | [address];[place] [address] CSF RBC | | | 0 Testing performed at [facility];[address] [place] [address];[place], [place] | | | [address] CSF WBC 0 | | | Testing performed at [facility];[address] [place] [address];[place] [address] | | + + + + +---------+ [...] + + + | [facility] [address] Ph: | | | Patient Name: JADYN SCHMITZ Date of : | | | 1965 Medical Record: [id number] Account: [id number] | | | Exam Date/Time: 10/15/2010 10:15 Ordering | | | Physician: BERNA Finley Detail: [id number] Exam Description: XR | | [...] [address] Monroe and revealed | | | no contraindication to lumbar puncture. ALLERGIES NKDA | | | MEDICATION ADMINISTERED: Lidocaine 1% with sodium bicarb for local | | | anesthesia DESCRIPTION OF PROCEDURE I met this patient in the | | | Supervisor Beater Room holding room. The patient was awake, alert, [...] | + + | Roger Mcbride - 10/17/2018 5:21 PM PDT | | [facility] | | [facility] [address] | | | | | | Patient Name: JADYN SCHMITZ | | Date of : 1965 | | Medical Record: [id number] | | Account: [id number] | | | | | | Exam [...] | I met this patient in the Supervisor Beater Room holding room. The patient was awake, | [...] EXTERNAL LAB | | Testing performed at [facility];[address] [place] [address];[place] [address] VIRAL | | | CULTURE ACCESSION NO. | | | [id number] SPECIMEN SOURCE | | | CEREBROSPINAL FLUID RESULT | | | PRELIMINARY: NO VIRUS ISOLATED AT 7 | | | DAYS. | | | FINAL: NO VIRUS ISOLATED AT 14 DAYS. Testing performed at | | | [address] [address] VIRAL CULTURE,STATUS | | | REPORT STATUS FINAL | | | 10/30/2010 Testing performed at [address] | | | [address] | | + + + + +---------+ [...] | Testing performed at | | | [facility];[address] [facility];[place] [address] GRAM STAIN | | | NO CELLS OR ORGANISMS SEEN | | | Testing performed at [facility], [address] [place] [address] | | | [place] [address] CULTURE | | | NO GROWTH 3 DAYS | | | Testing performed at [facility], [address] [place] [address], [place], | | | [place] [address] REPORT STATUS 10/18/2010 | | | FINAL [...] | EXTERNAL LAB | | performed at [facility];[address] [place] [address];[place] [address] | | + + + + +---------+ [...] EXTERNAL LAB | | Testing performed at [facility];[address] [place] [address];[place] [address] | | + + + + +---------+ [...]
--- OUTSIDE RECORDS SUMMARY | ~2019-01-15 | XMS | Encounter Summary ---
Demographics + + + | Address | [address] | | | [place] [address] | + + + | Home Phone [...] Team Providers + +------+ + | Care Transfer Table Operator Name | Role | Phone | [...] + + | 11/11/ | Telephone | [facility] | Shashi Segovia | Results | | 2013 | | NEUROLOGY ADRIANA | MD Miryam Need updated | | | | | [address], | address | | | | | [address] [place] | | | | | | [place] [address] | | | | | | [phone] | | | +--------+ + + + [...] [place] | | | | | | [address] | | | | | | | | +--------+---------+ + + + | 11/24/ | Office | Cardiology | [place], | | | 2019 | Visit | | SINDHU Erickson [address] | | | | | | [place], | | | | | | [place] [address] | | | | | | [phone] | | | | | | | | +--------+---------+ + + + documented as of this encounter Visit Diagnoses Not on filedocumented in this encounter"
--- OUTSIDE RECORDS SUMMARY | ~2019-01-15 | XMS | Encounter Summary ---
Demographics + + + | Address | [address] | | | [place] [address] | + + + | Home Phone [...] + + + | Author | [facility] | | | and [place] | + + + | Organization | [facility] | | | [...] Team Providers + +------+ + | Care Outboard Motor Tester Name | Role | Phone | + [...] | Concussion | Aaron Kim MD | Inventory Control Supervisor [address] | | | Required | | with brief | [address] | [place] | | | | | loss of | [address] | [place], [place] | | | | | consciousnes | [place], | [address] | | | | | s Word | [place] [address] | Phone: | | | | | finding | Phone: | [phone] | | | | | difficulty | [phone] | Fax: | | | | | [phone] | Fax: | [phone] | | | | | (ICD-10-CM) | [phone] | | | | | | - [...] + + | 08/21/ | Hospital | [facility] | Aaron Rodriguez, | Impaired memory | | 2017 | Encounter | MED CTR SPEECH | MD [address] | (Primary Dx); Word | | | | THERAPY [address] | [place] | finding difficulty | | | | [place], | [address] | | | | | [place] [address] | | | | | | [phone] | Kathi Soto, | | | | [...] [facility]. | | | | | | | [...] | 0 | 10/13/19 | | | Bhlfuqjgcg-EZQZ-Wgxr | mouth as needed. | | | 16 | 7 | | -Cod [id number] MG | | | | | | [...] Speech Pathologist - 08/21/2016 2:14 PM PDT [facility]CH [facility]ERAPY [address] [facility] [address] Speech Therapy Daily Treatment Note Date: 08/21/2016 Patient Information Patient Name: Rosario Malik Date of : 1965 Age: 51 y.o. Encounter Diagnoses Code Name Primary? R41.3 Impaired memory Yes R47.89 Word finding difficulty Date of Onset: 03/15/2016 Referring Provider: Aaron Rodriguez MD Rehab Precautions Flowsheet Row Office Visit from 05/01/2016 in [facility] THERAPY PT OP Rehab Precautions Precautions None Rehab Learning Style Flowsheet Row [facility] SUPERVISOR WATER SOFTENER SERVICE OP EVAL from 05/16/2016 in [facility] SPEECH THERAPY O ffice Visit from 05/01/2016 in [facility] THERAPY PT OP Learning Style Patient's [...] | | | | Jose R E [place] | | | | | | [id number] | | | | | | | | +--------+---------+ + + + | 11/24/ | Office | Cardiology | [place], | | | 2019 | Visit | | SINDHU Erickson [address] | | | | | | [place], | | | | | | [place] [address] | | | | | | [phone] | | | | | | | [...]
--- OUTSIDE RECORDS SUMMARY | ~2019-01-15 | XMS | Encounter Summary ---
Demographics + + + | Address | [address] | | | [place] [address] | + + + | Home Phone [...] Team Providers + +------+ + | Care Career Technical Education Instructor Name | Role | Phone | + [...] | | central | [address] | [place] | | | | | sleep apnea | [address] | [place], | | | | | GARRY | [place], | [place] [address] | | | | | (obstructive | [place] [address] | Phone: | | | | | sleep | Phone: | [phone] | | | | | apnea) | [phone] | Fax: | | | | | Procedures | Fax: | [phone] | | | | | [place] POLYSOM | [phone] | | | | | | 6/>YRS [...] + + | 02/08/ | Hospital | [facility] | Kevin Sandoval, | | | 2013 | Encounter | MED CTR SLEEP | [address] | | | | | [employer] [address] | [place] | | | | | [place] | [address] | | | | | [address] | | | | | | [phone] | | | +--------+ + + + [...] | | | | | order to [facility]. | | | | | + + [...] | | | | | | | [facility]. | | | | [...] [place] | | | | | | [address] | | | | | | | | +--------+---------+ + + + | 11/24/ | Office | Cardiology | [place], | | | 2019 | Visit | | SINDHU Erickson [address] | | | | | | [place], | | | | | | [place] [address] | | | | | | [phone] | | | | | | | [...]
--- OUTSIDE RECORDS SUMMARY | ~2019-01-15 | XMS | Encounter Summary ---
Demographics + + + | Address | [address] | | | [place] [address] | + + + | Home Phone [...] Providers + +------+ + | Care Technical Program Manager Name | Role | Phone | [...] | (obstructive | [address] | [place] | | | | | sleep | [place] | [place], | | | | | apnea) | [place], [place] | [place] [address] | | | | | Procedures | [address] | Phone: | | | | | [place] POLYSOM | Phone: | [phone] | | | | | 6/>YRS SLEEP | [phone] | Fax: | | | | | 4/> ADDL | Fax: | [phone] | | | | | ALESSIA ATTND | [phone] | | | | | | [place] POL[place] | | | | | | [...] + + | 08/03/ | Hospital | [facility] | Meghan Garcia MD | GARRY (obstructive | | 2019 - | Encounter | MED CTR SLEEP | [address] | sleep apnea) | | | | CENTER [address] | [place] L[place] | | | 08/04/ | | [place] | [address] | | | 2018 | | [address] | | | | | | [phone] | | | +--------+ + + + [...] provide | 1 each | 0 | 01/13/ | | | Therapy Supplies | patient [...] | | | | send order to [facility] | | | | | | [...] [place] | | | | | | [address] | | | | | | | | +--------+---------+ + + + | 11/24/ | Office | Cardiology | [place], | | | 2019 | Visit | | SINDHU Erickson [address] | | | | | | [place], | | | | | | [place] [address] | | | | | | [phone] | | | | | | | [...] [facility] | | | [place] [address] Polysomnogram | | | Report on Rosario [...] | | | switched to bilevel in 2015. I reviewed the notes from Dr. Alarcon | | | in [place], [place]. It indicates that patient had CPAP [...] her COPD through her | | | senior science consultant. We performed a CPAP titration study on [...] | | | during sleep study as usual.Special Delivery Messenger note: Patient continues to | | | [...] | | stage R sleep was captured. Brennon SpO2 was 89%, and amount of total [...] this chart may have been created with [email or web address] | | | voice recognition software. Occasional [...] this chart may have been created with [email or web address] voice | | |recognition software. Occasional wrong-word [...] PDT [facility] | | [place], [place] [address]Rbleneexcrtmm Report on Rosario Malik performed on August 03, 2018.PATIENT IDENTIFICATION:Rosario [...] | | notes from Dr. Alarcon in [place], [place]. It indicates that patient had | [...] the day for her COPD through her senior science consultant.We performed a | | CPAP titration study [...] quality during | | sleep study as usual.Special Delivery Messenger note: Patient continues to struggle with mask [...] this chart may have been created with [email or web address] voice recognition software. | | Occasional wrong-word [...]
--- OUTSIDE RECORDS SUMMARY | ~2019-01-15 | XMS | Encounter Summary ---
Demographics + + + | Address | [address] | | | [place] [address] | + + + | Home Phone [...] Team Providers + +------+ + | Care Editor Managing Director Name | Role | Phone | [...] | | [place] | [facility] | | | | | [address] | [place] [address] | | | | | [phone] | [phone] | | | | | | | [...] [place] | | | | | | [address] | | | | | | | | +--------+---------+ + + + | 11/24/ | Office | Cardiology | [place], | | | 2019 | Visit | | SINDHU Erickson [address] | | | | | | [place], | | | | | | [place] [address] | | | | | | [phone] | | | | | | | | +--------+---------+ + + + documented as of this encounter Visit Diagnoses Not on filedocumented in this encounter"
--- OUTSIDE RECORDS SUMMARY | ~2019-01-15 | XMS | Encounter Summary ---
Demographics + + + | Address | [address] | | | [place] [address] | + + + | Home Phone [...] Team Providers + +------+ + | Care Bee Farmer Name | Role | Phone | + +------+ + | Juan Cherry DO | PCP | | + +------+ + Encounter Details +--------+ + + + + | Date | Type | Department | Care Team | Description | +--------+ + + + + | 09/09/ | Hospital | [facility] | Conversion | Pain | | 2015 | Encounter | CONVERSION [address] | Transaction, | | | | | [address] | Provider Unknown | | | | | [place], [place] | [phone] | | | | | [address] | | | | | | [phone] | | | +--------+ + + + [...] | | | order to [facility]. | | | | | + [...] | | | send order to [facility] | | | | | [...] | | | | | | | ([facility]) | | | | | [...] | | | [address] [facility] | | | | | | [address] | | | | | | | | +--------+---------+ + + + | 11/24/ | Office | Cardiology | [place], | | | 2019 | Visit | | SINDHU Erickson [address] | | | | | | [place], | | | | | | [place] [address] | | | | | | [phone] | | | | | | | [...]
--- OUTSIDE RECORDS SUMMARY | ~2019-01-15 | XMS | Encounter Summary ---
Demographics + + + | Address | [address] | | | [place] [address] | + + + | Home Phone [...] Team Providers + +------+ + | Care Inspection Machine Tender Name | Role | Phone [...] | | | | [facility] | [place] [address] | [address] | | | | | EXERCISE | [place], | [place] | | | | | | [place] [address] | [place], [place] | | | | | | Phone: | [address] | | | | | | [phone] | Phone: | | | | | | Fax: | [phone] | | | | | | [phone] | Fax: | | | | | | | [phone] | +--------+--------+ + + + + Encounter Details +--------+---------+ + + + | Date | Type | Department | Care Team | Description | +--------+---------+ + + + | 08/20/ | Office | [facility] | Jared Mcdonough, | Chronic obstructive | | 2017 | Visit | MED CTR CARDIAC | [address] | pulmonary disease, | | | | REHABILITATION [address] [place], | unspecified COPD | | | | [address] [place] | [place] [address] | type (HCC) (Primary | | | | [place] [address] | [phone] | Dx) | | | | [phone] | | | +--------+---------+ + + + [...] of this encounter Progress Desean Wheeler - 08/20/2016 10:15 AM PDTPatient tolerated exercise session without [...] [place] | | | | | | [address] | | | | | | | | +--------+---------+ + + + | 11/24/ | Office | Cardiology | [place], | | | 2019 | Visit | | SINDHU Erickson [address] | | | | | | [place], | | | | | | [place] [address] | | | | | | [phone] | | | | | | | | +--------+---------+ + + + documented as of this encounter Visit Diagnoses + + | Diagnosis | + + | Chronic obstructive pulmonary disease, unspecified COPD type (HCC) - Primary | + + documented in this encounter"
--- OUTSIDE RECORDS SUMMARY | ~2019-01-15 | XMS | Encounter Summary ---
Demographics + + + | Address | [address] | | | [place] [address] | + + + | Home Phone [...] Team Providers + +------+ + | Care Psychiatric Social Worker Name | Role | Phone | + +------+ + | Ozzy Delcid MD | PCP | | + +------+ + Encounter Details +--------+ + + + + | Date | Type | Department | Care Team | Description | +--------+ + + + + | 11/05/ | Abstract | [place] [facility] | DATA MIGRATION QUIN | | | 2011 | | Conversion Location | SR | | | | | [phone] | | | +--------+ + + + [...] + + + | Blood Pressure | 94/60 | 10/09/2011 12:00 AM | | | | | PDT | | + + + + + | Pulse | - | - | | + [...] + + + + | Weight | 53.3 kg (117 lb 8 | 10/09/2011 12:00 AM | | | | oz) | PDT | | + + + + + | Height | 158.8 cm (5' 2.5") | 08/22/2011 12:00 AM | | | | | PDT | | + + + + + | Body Mass Index | 21.83 | 08/22/2011 12:00 AM | | | | | PDT | | + + + + + documented in this encounter Plan of Treatment +--------+---------+ + + + | Date | Type | Specialty | Care Team | Description | +--------+---------+ + + + | 03/01/ | Office | Pulmonology | Mukul Clark MD | | | 2019 | Visit | | [address] | | | | | | [place] | | | | | | [address] | | | | | | | | +--------+---------+ + + + | 11/24/ | Office | Cardiology | [place], | | | 2019 | Visit | | SINDHU Erickson [address] | | | | | | [place], | | | | | | [place] [address] | | | | | | [phone] | | | | | | | | +--------+---------+ + + + documented as of this encounter Procedures + +--------+ + + + | Procedure Name | Priori | Date/Time | Associated Diagnosis | Comments | | | ty | | | | + +--------+ + + + | ENDOSCOPY, COLON, | Routin | 04/12/2010 | | Results for this | | DIAGNOSTIC | e | 12:00 AM | | procedure are in the | | | | PST | | results section. | + +--------+ + + + documented in this encounter Results ENDOSCOPY, COLON, DIAGNOSTIC (04/12/2010 12:00 AM PST) + + | Specimen | + + | | + + + + + | Narrative | Performed At | + + + | | | + + + documented in this encounter Visit Diagnoses Not on filedocumented in this encounter
--- OUTSIDE RECORDS SUMMARY | ~2019-01-15 | XMS | Encounter Summary ---
Demographics + + + | Address | [address] | | | [place] [address] | + + + | Home Phone [...] Team Providers + +------+ + | Care Optical Glass Inspector Name | Role | Phone | [...] + + | 11/22/ | Emergency | [facility] | Bishop Alatorre, | Acute post-operative | | 2016 | | MED CTR EMERGENCY | [place] [address] | pain (Primary Dx); | | | | CENTER [address] | [place] | Bladder pain | | | | [place] | [address] | | | | | [address] | | | | | | [phone] | | | +--------+ + + + [...] sent through Care Everywhere.PAIN MANAGEMENT AFTER SURGERY ([place])documented in this encounter Medications at Time of [...] | | | | | order to [facility]. | | | | | [...] | | | | send order to [facility] | | | | | | | [...] | | | | | | | ([facility]) | | | | | | [...] | 0 | 10/13/19 | | | Grjmfzqjlx-LAEX-Zctf | mouth as needed. | | | 16 | 7 | | -Cod [id number] MG | | | | | | [...] | | | | | | | ([facility]) | | | | | | [...] [place] | | | | | | [address] | | | | | | | | +--------+---------+ + + + | 11/24/ | Office | Cardiology | [place] | | | 2019 | Visit | | SINDHU Erickson [address] | | | | | | [place], | | | | | | [place] [address] | | | | | | [phone] | | | | | | | [...] | | | | | | Starting [facility] 11/23/15 at 1927 | | | | | | + + + + +------+------+ +---+---+ | | | +---+---+ documented in this encounter
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
--- OUTSIDE RECORDS SUMMARY | ~2019-01-15 | XMS | Encounter Summary ---
Demographics + + + | Address | [address] | | | [place] [address] | + + + | Home Phone [...] Team Providers + +------+ + | Care Hospice Superintendent Name | Role | Phone | [...] + | 07/25/ | Documentati | [facility] | Kathi [place], | No Show | | 2017 | on | MED CTR SPEECH | Speech Pathologist | | | | | THERAPY [address] | | | | | | [place], | | | | | | [place] [address] | | | | | | [phone] | | | +--------+ + + + [...] Speech Pathologist - 07/25/2016 1:58 PM [facility] [address] [place] [address] Cancellation/No Show Date: 07/25/2016 Patient Information Patient [...] | | | | | | [place] [address] | | | | | | [phone] | | | | | | | | +--------+---------+ + + + documented as of this encounter Visit Diagnoses Not on filedocumented in this encounter"
--- OUTSIDE RECORDS SUMMARY | ~2019-01-15 | XMS | Encounter Summary ---
Demographics + + + | Address | [address] | | | [place] [address] | + + + | Home Phone [...] Team Providers + +------+ + | Care Light Rail Operator Name | Role | Phone | + +------+ + PCP | Unavailable | + +------+ + Encounter Details +--------+ + + + + | Date | Type | Department | Care Team | Description | +--------+ + + + + | 09/15/ | Hospital | [facility] | Rocky Rodriguez | | | 2010 | Encounter | MED CTR EMERGENCY | MD Kyler [address] | | | | | CENTER [address] | [address] [facility] | | | | | [place], [place] | [place] [address] | | | | | [address] | [phone] | | | | | [phone] | | | +--------+ + + + [...] [place] | | | | | | [address] | | | | | | | | +--------+---------+ + + + | 11/24/ | Office | Cardiology | [place], | | | 2019 | Visit | | SINDHU Erickson [address] | | | | | | [place], | | | | | | [place] [address] | | | | | | [phone] | | | | | | | | +--------+---------+ + + + documented as of this encounter Visit Diagnoses Not on filedocumented in this encounter"
--- OUTSIDE RECORDS SUMMARY | ~2019-01-15 | XMS | Encounter Summary ---
Demographics + + + | Address | [address] | | | [place] [address] | + + + | Home Phone [...] Team Providers + +------+ + | Care Sealing And Canceling Machine Operator Name | Role | Phone [...] | +--------+ + + + + | 09/13/ | Emergency | [facility] | Alexi Guaman, | Tachycardia (Primary | | 2018 | | MED CTR EMERGENCY | MD [address] | Dx); Hypokalemia | | | | CENTER [address] | [place] | | | | | [place] | [address] | | | | | [address] | | | | | | [phone] | | | +--------+ + + + [...] this encounter Last Filed Vital Signs + +---------+ + + | Vital Sign | Reading | Time Taken | Comments | + +---------+ + + | Blood Pressure | 94/52 | 09/13/2017 7:30 AM | | | | | PDT | | + +---------+ + + | Pulse | 83 | 09/13/2017 7:41 AM | | | | | PDT | | + +---------+ + + | Temperature | - | - | | + +---------+ + + | Respiratory Rate | 22 | 09/13/2017 7:41 AM | | | | | PDT | | + +---------+ + + | Oxygen Saturation | 94% | 09/13/2017 7:41 AM | | | | | PDT | | + +---------+ + + | Inhaled Oxygen | - | - | | | Concentration | | | | + +---------+ + + | Weight | - | - | | + +---------+ + + | Height | - | - | | + +---------+ + + | Body Mass Index | - | - | | + +---------+ + + documented in this encounter Functional [...] cannot be sent through Care Everywhere.Hypokalemia (En glish)Tachycardia, Understanding (Turkmen)documented in this encounter Medications at Time of [...] | | | order to [facility]. | | | | | + [...] | | | | send order to [facility] | | | | | | | [facility]. | | | | | | [...] chloride | Take 1 tablet by | 4 | 0 | 09/14/19 | | | (K-DUR) 20 mEq ER | mouth 2 times daily | tablet | | 18 | 8 | | tablet | for 2 days. | | | | | + [...] | | | | | | [place] [address] | | | | | | [phone] | | | | | | | | +--------+---------+ + + + + +------+--------+ + + | Name | Type | Priori | Associated Diagnoses | Date/Time | | | | ty | | | + +------+--------+ + + | ED INFORMATION | BALWINDER | Routin | | 09/13/2017 6:20 AM | | EXCHANGE | | e | | PDT | + +------+--------+ + + documented as of this encounter Procedures + +--------+ + + + | Procedure Name | Priori | Date/Time | Associated Diagnosis | Comments | | | ty | | | | + +--------+ + + + | XR CHEST AP PORTABLE | STAT | 09/13/2017 | | Results for this | | | | 6:45 AM | | procedure are in the | | | | PDT | | results section. | + +--------+ + + + | TROPONIN I | STAT | 09/13/2017 | | Results for this | | | | 6:40 AM | | procedure are in the | | | | PDT | | results section. | + +--------+ + + + | CBC WITH | STAT | 09/13/2017 | | Results for this | | DIFFERENTIAL | | 6:40 AM | | procedure are in the | | | | PDT | | results section. | + +--------+ + + + | DIGOXIN LEVEL | STAT | 09/13/2017 | | Results for this | | | | 6:40 AM | | procedure are in the | | | | PDT | | results section. | + +--------+ + + + | BASIC METABOLIC | STAT | 09/13/2017 | | Results for this | | PANEL | | 6:40 AM | | procedure are in the | | | | PDT | | results section. | + +--------+ + + + | ECG 12 LEAD | STAT | 09/13/2017 | | Results for this | | | | 6:27 AM | | procedure are in the | | | | PDT | | results section. | + +--------+ + + + | ED INFORMATION | Routin | 09/13/2017 | | | | EXCHANGE | e | 6:20 AM | | | | | | PDT | | | + +--------+ + + + +---+--------+ | | | | | Proced | | | ure | | | Note - | | | Vic, | | | Lab In | | | | | | Hlseve | | | n - | | | | | | 2017 | | | 6:21 | | | AM PDT | | [...] | | | FICATI | | | ON?07/ | | | [birth year]/201 | | | 8 | | | 06:18? | | | HODGEN | | | , | | | GRETCH | | | EN | | | W?MRN: | | | | | | [id number] | | | [id number] | | | his | | | [...] | | int | | | Mansoor | | | 21, | | | 2018 | | | Provid | | | ence | | | [facility] | | | [facility] | | | [place] | | | [place] | | | Emerge | | | ncy | | | Emerge | | | ncy | | | High | | | HR | | | Mansoor 9, | | | 2018 | | | Provid | | | ence | | | St. | | | [facility] | | | [place] | | | [place] | | | Emerge | | | ncy | | | Emerge | | | ncy | | | needs | | | heart | | | | | | monite | | | r | | | remove | | | d | | | Proced | | | ure | | | and | | | treatm | | | ent | | | not | | | antonina | | | d out | | | due to | | | | | | patien | | | t | | | leavin | | | g | | | prior | | | to | | | being | | | seen | | | by | | | health | | | care | | | provid | | | er | | | Mansoor 7, | | [...] | | | ified | | | | | | [place] | | | lemia | | | Carl[place] | | | [...] | | | Center | | | 5 0 | | | Total | | | 5 0 | | | Note: | | [...] | id 5 | | | in 12 | | | 4 | | | visits | | | in | | | 60Know | | | n | | | [...] | +---+--------+ documented in this encounter Results XR Chest AP Portable (09/13/2017 6:45 AM PDT) + + | Specimen | + + | | + + + + + | Narrative | Performed At | + + + | XR CHEST AP PORTABLE 09/13/2017 6:40 AM HISTORY: TACHYCARDIA. | [facility] | | COMPARISON: 08/14/2017 Findings: The bilateral lungs are clear | | | with no evidence for pleural effusion or pneumothorax. Heart size is | | | within normal limits. Pulmonary vasculature is within normal limits. | | | Aorta is normal. Mediastinum is unremarkable. No acute osseous or | | | soft tissue abnormality identified. IMPRESSION - No acute | | | intrathoracic abnormality identified. Dictated and Signed by: Pb | | | MD Kal Electronically signed: 09/13/2017 8:08 AM | | + + + + + | Procedure Note | + + | Vic, Rad Results In - 09/13/2017 8:11 AM PDT XR CHEST AP PORTABLE 09/13/2017 6:40 AM | | | | HISTORY: TACHYCARDIA. | | | | COMPARISON: 08/14/2017 | | | | Findings: | | The bilateral lungs are clear with no evidence for pleural effusion or | | pneumothorax. Heart size is within normal limits. Pulmonary vasculature is | | within normal limits. Aorta is normal. Mediastinum is unremarkable. No acute | | osseous or soft tissue abnormality identified. | | | | IMPRESSION - | | No acute intrathoracic abnormality identified. | | | | Dictated and Signed by: Pb Bowden MD | | Electronically signed: 09/13/2017 8:08 AM | + + + +---------+ + + | Performing | Address | City/State/Zipcode | Phone Number | | Organization | | | | + +---------+ + + | [facility] | | | | + +---------+ + + Digoxin Level (09/13/2017 6:40 AM PDT) + +---------+ + + + | Component | Value | Ref Range | Performed | Pathologist | | | | | At | Signature | + +---------+ + + + | Digoxin | 0.6 (L) | 0.8 - 2.0 ng/mL | [...] [address] | [place] | [phone] | | [facility] | | [address] | | | - LABORATORY | | | | + + + + + Troponin I (09/13/2017 6:40 AM PDT) + + + + + [...] | | | | | | [employer] | | | | | [...] [address] | [place] | [phone] | | [facility] | | [address] | | | - LABORATORY | | | | + + + + + Basic Metabolic Panel (09/13/2017 6:40 AM PDT) + + + + + + | Component | Value | Ref Range | Performed | Pathologist | | | | | At | Signature | + + + + + + | Na | 138 | 136 - 149 | [facility] | | | | | mmol/L | [facility] | | | | | | MEDICAL | | | | | | CENTER - | | | | | | LABORATORY | | + + + + + + | K | 3.0 (L) | 3.5 - 5.1 | [facility] | | | | | mmol/L | [facility] | | | | [...] + + + + | Glucose | 119 (H) | 70 - 109 mg/dL | [facility] | | | | | | [facility] | | | | | | MEDICAL | | | | | | CENTER - | | | | | | LABORATORY | | + + + + + + | BUN | 5 (L) | 7 - 18 mg/dL | [facility] | | | | | | [facility] | | | | | | MEDICAL | | | | | | CENTER - | | | | | | LABORATORY | | + + + + + + | Creatinine | 0.77 | 0.60 - 1.30 | [facility] | | | | | mg/dL | [facility] | | | | | | MEDICAL | | | | | | CENTER - | | | | | | LABORATORY | | + + + + + + | eGFR if not | >60Comment: GLOMERULAR | >=60 | [facility] | | | | FILTRATION | mL/min/1.73m2 | [facility] | | | URUGUAYAN | RATE,ESTIMATED | | MEDICAL | | | | mL/min/1.92s2Pvki than | | CENTER - | | [...] + + + + | BUN/Creatin | 6.5 | | [facility] | | | ine [...] + | [facility] | [address] | [place] | [phone] | | [facility] | | [address] | | | - LABORATORY | | | | + + + + + CBC with Differential (09/13/2017 6:40 AM PDT) + + + + + + | Component | Value | Ref Range | Performed | Pathologist | | | | | At | Signature | + + + + + + | WBC | 10.6 | 4.0 - 11.0 K/uL | [facility] [...] + + + + | Hemoglobin | 13.5 | 11.5 - 16.0 | [facility] | | | | | g/dL | [facility] | | | | | | MEDICAL | | | | | | CENTER - | | | | | | LABORATORY | | + + + + + + | Hematocrit | 38.6 | 34.0 - 47.0 % | [facility] | | | | | | [facility] | | | | | | MEDICAL | | | | | | CENTER - | | | | | | LABORATORY | | + + + + + + | MCV | 82.1 (L) | 83.0 - 101.0 fL | [facility] | | | | | | [facility] | | | | | | MEDICAL | | | | | | CENTER - | | | | | | LABORATORY | | + + + + + + | MCH | 28.7 | 28.0 - 35.0 pg | [facility] | | | | | | [facility] | | | | | | MEDICAL | | | | | | CENTER - | | | | | | LABORATORY | | + + + + + + | MCHC | 34.9 | 32.0 - 36.0 | [facility] | | | | | g/dL | [facility] | | | | | | MEDICAL | | | | | | CENTER - | | | | | | LABORATORY | | + + + + + + | RDW-CV | 14.4 | <15.0 % | [facility] | | | | | | [facility] | | | | | | MEDICAL | | | | | | CENTER - | | | | | | LABORATORY | | + + + + + + | Platelet | 437 | 140 - 440 K/uL | [facility] [...] + + + + | % | 51.3 | 45.0 - 82.0 % | [facility] | | | Neutrophils | | | [facility] | | | | | | MEDICAL | | | | | | CENTER - | | | | | | LABORATORY | | + + + + + + | % | 38.1 | 20.0 - 45.0 % | [facility] [...] + + + + | % | 2.1 | 0.0 - 5.0 % | [facility] | | | Eosinophils | | | [facility] | | | | | | MEDICAL | | | | | | CENTER - | | | | | | LABORATORY | | + + + + + + | % Basophils | 1.3 (H) | 0.0 - 1.0 % | [facility] | | | | | | [facility] | | | | | | MEDICAL | | | | | | CENTER - | | | | | | LABORATORY | | + + + + + + | Absolute | 5.40 | 1.80 - 8.50 | [facility] | | | Neutrophils | | K/uL | [facility] | | | | | | MEDICAL | | | | | | CENTER - | | | | | | LABORATORY | | + + + + + + | Absolute | 4.00 (H) | 0.60 - 3.20 | [facility] [...] + | [facility] | [address] | [place] | [phone] | | [facility] | | [address] | | | - LABORATORY | | | | + + + + + ECG 12 lead (09/13/2017 6:27 AM PDT) + + + + + + | Component | Value | Ref Range | Performed | Pathologist | | | | | At | Signature | + + + + + + | VENTRICULAR | 102 | BPM | [facility] | | | RATE EKG | | | | | + + + + + + | ATRIAL RATE | 102 | BPM | [facility] | | + + + + + + | P-R | 108 | ms | [facility] | | | INTERVAL | | | | | + + + + + + | QRS | 68 | ms | [facility] | | | DURATION | | | | | + + + + + + | Q-T | 360 | ms | [facility] | | | INTERVAL | | | | | + + + + + + | Q-T | 469 | ms | [facility] | | | INTERVAL | | | | | | (CORRECTED) | | | | | + + + + + + | P WAVE AXIS | 54 | degrees | [facility] | | + + + + + + | QRS AXIS | -17 | degrees | [facility] | | + + + + + + | T AXIS | 12 | degrees | [facility] | | + + + + + + | INTERPRETAT | Poor data quality, | | [facility] | | | ION TEXT | interpretation may be | | | | | | adversely | | | | | | affectedProbable Sinus | | | | | | tachycardia with short | | | | | | HI though P waves are | | | | | | difficult to identify | | | | | | due to poor quality of | | | | | | tracingPAC'sPossible | | | | | | Inferior infarct , age | | | | | | undeterminedNonspecific | | | | | | ST and T wave | | | | | | abnormality :cannot | | | | | | exclude ischemiaAbnormal | | | | | | ECGWhen compared with | | | | | | ECG of 30-AUG-2017 | | | | | | 11:40,premature | | | | | | supraventricular | | | | | | complexes are no longer | | | | | | presentPR interval has | | | | | | decreasedPossible | | | | | | Inferior infarct is now | | | | | | presentConfirmed by | | | | | | RAFA WELLS MD ([id number]) | | | | | | on 09/14/2017 9:47:53 AM | | | | + + [...] | | | + +--------+ +--------+------+------+ | acetaminophen (TYLENOL) tablet | Given | 09/14/19 | 650 mg | | | | 650 mg 650 mg, Oral, EVERY 4 | | 18 6:58 | | | | | HOURS PRN, Pain, Starting Sat | | AM PDT | | | | | 09/13/17 at 0654 | | | | | | + +--------+ +--------+------+------+ +---+---+ | | | +---+---+ + +---------+ +--------+-------+---+ | sodium chloride 0.9% (NS) bolus | New Bag | 09/14/19 | 1,000 | 2000 | | | 1,000 mL 1,000 mL, Intravenous, | | 18 6:46 | mLs | mL/hr | | | Administer over 30 Minutes, | | AM PDT | | | | | ONCE, 09/13/17 at 0640, For 1 | | | | | | | dose | | | | | | + +---------+ +--------+-------+---+ +---+---+ | | | +---+---+ documented in this encounter"
--- OUTSIDE RECORDS SUMMARY | ~2019-01-15 | XMS | Encounter Summary ---
Demographics + + + | Address | [address] | | | [place] [address] | + + + | Home Phone [...] Team Providers + +------+ + | Care Historic Sites Registrar Name | Role | Phone | + +------+ + | Juan Cherry DO | PCP | | + +------+ + Encounter Details +--------+ + + + + | Date | Type | Department | Care Team | Description | +--------+ + + + + | 09/09/ | Hospital | [facility] | Conversion | Pain | | 2015 | Encounter | CONVERSION [address] | Transaction, | | | | | [address] | Provider Unknown | | | | | [place], [place] | [phone] | | | | | [address] | | | | | | [phone] | | | +--------+ + + + [...] Jose R Snow [facility] | | | | | | [address] | | | | | | | | +--------+---------+ + + + | 11/24/ | Office | Cardiology | [place], | | | 2019 | Visit | | SINDHU Erickson [address] | | | | | | [place], | | | | | | [place] [address] | | | | | | [phone] | | | | | | | [...]
--- OUTSIDE RECORDS SUMMARY | ~2019-01-15 | XMS | Encounter Summary ---
Demographics + + + | Address | [address] | | | [place] [address] | + + + | Home Phone [...] Team Providers + +------+ + | Care Surgical Garment Inspector Name | Role | Phone | + +------+ + | Juan Cherry DO | PCP | | + +------+ + Encounter Details +--------+ + + + + | Date | Type | Department | Care Team | Description | +--------+ + + + + | 11/05/ | Hospital | [facility] | Shashi Segovia | Pituitary mass (HCC) | | 2013 | Encounter | [facility] CTR LAB[facility]ATORY | MD Miryam Need updated | | | | | [address] | address | | | | | [place] | | | | | | [address] | | | | | | [phone] | | | +--------+ + + + [...] | | | | order to [facility]. | | | | | + [...] | | | | | | | [facility]. | | | | | | [...] [place] | | | | | | [id number] | | | | | | | | +--------+---------+ + + + | 11/24/ | Office | Cardiology | [place], | | | 2019 | Visit | | SINDHU Erickson [address] | | | | | | [place], | | | | | | [place] [address] | | | | | | [phone] | | | | | | | [...] [place] | | | | | | [address] | | | | + + + + + + + + | Specimen | + + | Blood specimen | | (specimen) | + + + + + + + | Performing | Address | City/State/Zipcode | Phone Number | | Organization | | | | + + + + + | [facility] | [address] | [place] [address] | [phone] | + + + + + Insulin-Like [...] | | | Factor 1 | [address], | | | | | | [place] [address] | | | | + + + + + + + + | Specimen | + + | Blood specimen | | (specimen) | + + + + + + + | Performing | Address | City/State/Zipcode | Phone Number | | Organization | | | | + + + + + | [facility] | [address] | [place] [address] | [phone] | + + + + + Prolactin [...] [place] | | | | | | [address] | | | | + + + [...] 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
--- OUTSIDE RECORDS SUMMARY | ~2019-01-15 | XMS | Encounter Summary ---
Demographics + + + | Address | [address] | | | [place] [address] | + + + | Home Phone [...] Team Providers + +------+ + | Care Improvement Spec Name | Role | Phone | + [...] + + + + | 10/18/ | Telephone | [facility] | Kevin Sandoval, | Other (increased | | 2013 | | PULMONARY [address] | MD [address] | shortness of breath) | | | | [place], | [place], [place] | | | | | [place] [address] | [address] | | | | | [phone] | | | +--------+ + + + [...] | | | | [place] | | | | | | [address] | | | | | | | | +--------+---------+ + + + | 11/24/ | Office | Cardiology | [place], | | | 2019 | Visit | | SINDHU Erickson [address] | | | | | | [place], | | | | | | [place] [address] | | | | | | [phone] | | | | | | | | +--------+---------+ + + + documented as of this encounter Visit Diagnoses Not on filedocumented in this encounter"
--- OUTSIDE RECORDS SUMMARY | ~2019-01-15 | XMS | Encounter Summary ---
Demographics + + + | Address | [address] | | | [place] [address] | + + + | Home Phone [...] Team Providers + +------+ + | Care Fisher Clam Name | Role | Phone | + [...] [address] | | | | | [place], | [place] | | | | | [place] [address] | [address] | | | | | [phone] | | | +--------+--------+ + + + [...] [place] | | | | | | [address] | | | | | | | | +--------+---------+ + + + | 11/24/ | Office | Cardiology | [place], | | | 2019 | Visit | | SINDHU Erickson [address] | | | | | | [place], | | | | | | [place] [address] | | | | | | [phone] | | | | | | | | +--------+---------+ + + + documented as of this encounter Visit Diagnoses Not on filedocumented in this encounter"
--- OUTSIDE RECORDS SUMMARY | ~2019-01-15 | XMS | Encounter Summary ---
Demographics + + + | Address | [address] | | | [place] [address] | + + + | Home Phone [...] Team Providers + +------+ + | Care Fishing Line Winding Machine Operator Name | Role | Phone [...] + + | 01/20/ | Emergency | [facility] | Nestor Martinez, | COPD exacerbation | | 2013 - | | [facility] | MD [address] | ([facility]) (Primary Dx) | | | | [place] [address] | [place], [place] | | | 01/21/ | | [place], [place] | [address] | | | 2013 | | [address] | | | | | | [phone] | | | +--------+ + + + [...] sent through Care Everywhere.ED COPD FLARE ( PUERTO RICAN)documented in this encounter Medications at Time of [...] | | send order to [facility] | | | | | | | [facility]. | | | | [...] [place] | | | | | | [address] | | | | | | | | +--------+---------+ + + + | 11/24/ | Office | Cardiology | [place], | | | 2019 | Visit | | SINDHU Erickson [address] | | | | | | [place], | | | | | | [place] [address] | | | | | | [phone] | | | | | | | [...] + | MISCELLANEOUS LAB | | | [phone] | + +---------+ + + | MISCELANIOUS LAB | | | [phone] | + +---------+ + + documented in [...]
--- OUTSIDE RECORDS SUMMARY | ~2019-01-15 | XMS | Encounter Summary ---
Demographics + + + | Address | [address] | | | [place] [address] | + + + | Home Phone [...] Team Providers + +------+ + | Care Department Helper Name | Role | Phone | + +------+ + | Juan Cherry DO | PCP | | + +------+ + Encounter Details +--------+ + + + + | Date | Type | Department | Care Team | Description | +--------+ + + + + | 11/06/ | Hospital | [facility] | Juan Cherry, | Pituitary mass (HCC) | | 2014 | Encounter | [facility] | DO [address] [facility] | | | | | [address] [place] | [place], [place] | | | | | [place], [place] | [address] | | | | | [address] | [phone] | | | | | [phone] | | | | | | | [...] | | | | order to [facility]. 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 | | | | | | [address], [place] | | | | | | [id number] Performed: | | | | | | [facility], [address], | | | | | | [place] [address] | | | | + + + + + + + + | Specimen | + + | Urine specimen | | (specimen) | + + + + + + + | Performing | Address | City/State/Zipcode | Phone Number | | Organization | | | | + + + + + | [facility] | 

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
--- OUTSIDE RECORDS SUMMARY | ~2019-01-15 | XMS | Encounter Summary ---
Demographics + + + | Address | [address] | | | [place] [address] | + + + | Home Phone [...] Team Providers + +------+ + | Care Textile Cutting Machine Operator Name | Role | [...] + + | 08/30/ | Emergency | [facility] | [place], | Tachycardia (Primary | | 2018 | | [facility] | Ozzy Kim MD [address] | Dx); Hypokalemia | | | | CENTER [address] | [address] [place] | | | | | [place] | [place] [address] | | | | | [address] | [phone] | | | | | [phone] | | | +--------+ + + + [...] | | | | | | [facility]. | | | | | | [...] [place] | | | | | | [address] | | | | | | | | +--------+---------+ + + + | 11/24/ | Office | Cardiology | [place], | | | 2019 | Visit | | [address] | | | | | | [place], | | | | | | [place] [address] | | | | | | [phone] | | | | | | | [...] W?MRN: | | | | | | [id number] | | | [id number] | | | his | | | [...] | | [place] - | | | info@ | | | ollect | | | ivemed | | | icalte | | | [employer] | | | | +---+--------+ documented in this encounter Results Holter monitor - 48 hour (09/04/2017 10:18 AM PDT) + + + | Narrative | Performed At | + + + | Jared Mcdonough MD 09/04/2017 10:47 PATIENT NAME: | JUNE ALFORD | | Rosario Malik : 1965: AGE: 52 y.o. | | | PRIMARY CARE: Yong | | | DO CAMILLE Cherry REPAIR ARMATURE WINDER HELPER: Jared Mcdonough MD | | | 48-HOUR [...] | | Signed by: Jared Mcdonough MD [facility] 09/04/2017, 10:18 | | + + + [...] | | level | | | [facility] | | [...] + | [facility] | [address] | [place] | [phone] | | [facility] | | [address] | | | - LABORATORY | | [...] | | | | | | [employer] | | | | | [...] + | [facility] | [address] | [place] | [phone] | | [facility] | | [address] | | | - LABORATORY | | [...] | | | | mg/dL | [facility] | | | | | | MEDICAL | | | | | | CENTER - | | | | | | LABORATORY | | + + + + + + | eGFR if not | >60Comment: GLOMERULAR | >=60 | [facility] | | | | FILTRATION | mL/min/1.73m2 | [facility] | | | [facility] | RATE,ESTIMATED | | MEDICAL | | | | mL/min/1.35c0Uscs than | | CENTER - | | [...] [address] | [place] | [phone] | | [facility] | | [address] | | | - LABORATORY | | | | + + + + + CBC with Differential (08/30/2017 11:44 AM PDT) + + + + + + | Component | Value | Ref Range | Performed | Pathologist | | | | | At | Signature | + + + + + + | WBC | 9.7 | 4.0 - 11.0 K/uL | [facility] | | | | | [facility] | | | | | | MEDICAL | | | | | | CENTER - | | | | | | LABORATORY | | + + + + + + | RBC | 4.85 | 3.70 - 5.20 | [facility] | | | | | M/uL | [facility] | | | | [...] | | | Eosinophils | | | [facility] | | | [...] | | Basophils | | K/uL | [facility] | | | | | [...] [address] | [place] | [phone] | | [facility] | | [address] | | | - LABORATORY | | [...] | Top Tube | | | [facility] | | | | | [...] [address] | [place] | [phone] | | [facility] | | [address] | | | - LABORATORY | | [...] [address] | [place] | [phone] | | [facility] | | [address] | | | - LABORATORY | | [...] ST. | [address] | [place], [place] | [phone] | | [facility] | | [address] | | | - LABORATORY | | | | + + + + + Extra Lavender Top Tube (08/30/2017 11:44 AM PDT) + +-------+ + + + | Component | Value | Ref Range | Performed | Pathologist | | | | | At | Signature | + +-------+ + + + | Extra | Done | | [facility] | | | Lavender | | | [...] [address] | [place] | [phone] | | [facility] | | [address] | | | - LABORATORY | | [...] + | [facility] | [address] | [place] | [phone] | | [facility] | | [address] | | | - LABORATORY | | [...] | Top Tube | | | [facility] | | [...] + | [facility] | [address] | [place] | [phone] | | [facility] | | [address] | | | - LABORATORY | | [...] | | | | | RAFA PAUL ([id number]) on | | | | | | [...]
--- OUTSIDE RECORDS SUMMARY | ~2019-01-15 | XMS | Encounter Summary ---
Demographics + + + | Address | [address] | | | [place] [address] | + + + | Home Phone [...] Team Providers + +------+ + | Care Wrecker Driver Name | Role | Phone | [...] Description | +--------+---------+ + + + | 12/12/ | Office | [facility] [place] | Offenstein, | Mixed sleep apnea; | | 2011 | Visit | PULMONARY [address] | Loreta Alonso MD | Insomnia; Need for | | | | [place], | | influenza | | | | [place] [address] | | vaccination | | | | [phone] | | | +--------+---------+ + + + [...] + | Blood Pressure | 90/60 | 12/13/2011 10:56 AM | | | | | PDT | | + + + + + | Pulse | 97 | 12/13/2011 10:56 AM | | | | | PDT | | + + + + + | Temperature | - | - | | + + + + + | Respiratory Rate | - | - | | + + + + + | Oxygen Saturation | 96% | 12/13/2011 10:56 AM | | | | | PDT | | + + + + + | Inhaled Oxygen | - | - | | | Concentration | | | | + + + + + | Weight | 55.7 kg (122 lb 12.8 | 12/13/2011 10:56 AM | | | | oz) | PDT | | + + + + + | Height | 157.5 cm (5' 2") | 12/13/2011 10:56 AM | | | | | PDT | | + + + + + | Body Mass Index | 22.46 | 12/13/2011 10:56 AM | | | | | PDT | | + + + + + documented in this encounter Patient Instructions Patient Instructions Loreta London MD - 12/13/2011 11:36 AM PDTStay with 11:30 pm bedtime. If you wake up at night, do something that will make you drowsy until you can go ba ck to sleep. Then go back to bed. If you don't fall asleep within 10-15 minutes, get back ou t of bed and repeat. Get out of bed to start you day at 6:30 am. You may take a single nap n o later than 5 pm every day, and for no longer than 30 minutes. Set an alarm to wake yoursel f up. Try taking melatonin 3 mg 1 hour before bedtime. Use your CPAP machine every time you sleep. Have them fit the mask to your face better if the nose pinching continues to be an issue. E lectronically signed by Loreta London MD at 12/13/2011 11:42 AM PDT documented in this encounter Progress Notes Loreta London MD - 12/13/2011 11:20 AM PDTFormatting of this note might be differe nt from the original. Sleep Follow Up HPI Rosario Malik is a 46 y.o. female patient of Juan Cherry MD here today for follow up of complex sleep apnea. She notes that she has been wearing their CPAP. Their compliance has been fair. They are h aving issues with their CPAP machine. She notes that she does feel comfortable when she put s that mask on and she does not feel claustrophobic. She falls asleep easily. She then finds that she wakes up between 2 and 3 am with the mask off. They feel like they are not more rested since starting on CPAP. They are having nasal congestion. She notes that this is only when she is wearing the mask. They have the humidity on the machine set at 5.5. She typically goes to bed at 11:30 PM and rises in the morning to start the day at 2-3 AM. She estimates that it takes 5 minutes to fall asleep. Though occasionally up to an hour. Rodolfo frank typically have nocturia or other nighttime awakenings 0 times a night. When she gets up at 2-3 am she wakes up and is wide awake. She is then not sleeping at all the rest of the da y. She notes that she may try and nap today as she is just wiped out. When she wakes up, she gets up uses the restroom, feeds her animals and then starts her day. She has tried going b ack to bed, and she will sleep for an hour and then that is the most she can do. She will ju st go back to bed and go to sleep. She does not have a lot of problems falling back asleep. She cannot go to bed earlier due to her work schedule. She is not taking anything at bedtim e to help her sleep. She has tried melatonin, natural melatonin, Lunesta, Ambien, temazepam. Past Medical History She has a past [...] reports that she has been smoking. She does not have any smokeless tobacco history on file. She reports that she does not drink alcohol or use illicit drugs. Allergies: Allergies Allergen Reactions Erythromycin Base Food Meperidine Nsaids Onion Extract Pork Allergy Medications: Outpatient Prescriptions Prior to Visit Medication Sig Dispense Refill DULoxetine (CYMBALTA) 60 MG capsule Take one [...] 1 inhalation every 4-6 hours as needed levothyroxine (LEVOXYL) 112 mcg tablet Take 112 mcg by mouth Daily. Review of Systems Constitutional: Denies fever, chills, sweats. Has lost a couple of pounds. Sleep: Still quite fatigued. Eyes: Denies vision change. Eyes are burning. ENT: Denies earache, decreased hearing, nosebleeds, sore throat, and hoarseness. Resp: See HPI. CV: Denies chest pain, palpitations, syncope, and peripheral edema. GI: Denies heartburn, nausea, vomiting, and abdominal pain. : Denies difficulty emptying bladder and nocturia. Objective BP 90/60 | Pulse 97 | Ht 1.575 m (5' 2") | Wt 55.702 kg (122 lb 12.8 oz) | BMI 22.46 kg/m2 | SpO2 96% General Appearance: Alert, cooperative, no distress, appears stated age Dates: 11/27-12/12/11 CPAP Pressure: 8-12 cmH2O Median Titrated Pressure: 10.0 cmH2O 95%tile Pressure: 11.9 cmH2O Maximum Pressure: 11.9 cmH2O AHI: 19.5 events/hour Total number of days: 15 Number of days used: 15 Median daily usage: 3:02 hours Percent of days used for more than 4 hours: 26 % Median leak: 1.2 L/min Assessment /Plan Ms. Malik was seen today for follow-up of mixed sleep apnea, predominately central in natu re. Mixed sleep apnea She was titrated to a CPAP of 10 cm and was recommended to start on auto CPAP without a donta k up rate in hopes that her central apnea would correct. She has done okay with starting on CPAP, though not surprisingly has not felt markedly better since starting. Her AHI has impro castillo significantly but not resolved, but her CPAP usage, while okay, has not been fabulous. S he has made good progress in terms of her usage. I encouraged her to stick with it. If we do n't see a marked reduction in terms of her AHI, than I would consider a repeat titration aldo dy, but I'm not sure we have given this a fair shot yet. If she continues to struggle over t he next four weeks with taking the mask off in the middle of the night, we can refer to Maxim Delgado. Insomnia She continues to have client hr manager awakenings. I think this is in part due to her apnea. I encouraged her to stick with the apnea therapy, but to also work on sleep hygiene to contin ue her sleep for longer periods of time instead of getting up out of bed. She was given the following instructions: Stay with 11:30 pm bedtime. If you wake up at night, do something that will make you drowsy until you can go back to sleep. Then go back to bed. If you don't fall asleep within 10-15 minutes, get back out of bed and repeat. Get out of bed to start you day at 6:30 am. You may take a single nap no later than 5 pm every day, and for no longer than 30 minutes. Set an a larm to wake yourself up. Try taking melatonin 3 mg 1 hour before bedtime. Need for influenza vaccination - [place] FLU VACCINE =>3YO PRESERVATIVE FREE IM 30 minutes were spent with Ms. Malik with greater than 50% spent in counseling and coordin ation of care. Return to clinic in 4 weeks. CC: Juan Olswanger MD documented in t his encounter Plan of [...] [place] | | | | | | [address] | | | | | | | | +--------+---------+ + + + | 11/24/ | Office | Cardiology | [place], | | | 2019 | Visit | | SINDHU Erickson [address] | | | | | | [place], | | | | | | [place] [address] | | | | | | [phone] | | | | | | | | +--------+---------+ + + + documented as of this encounter Visit Diagnoses + + | Diagnosis | + + | Mixed sleep apnea Other organic sleep apnea | + + | Insomnia Insomnia, unspecified | + + | Need for influenza vaccination Need for prophylactic vaccination and inoculation | | against influenza | + + documented in this encounter
--- OUTSIDE RECORDS SUMMARY | ~2019-01-15 | XMS | Encounter Summary ---
Demographics + + + | Address | [address] | | | [place] [address] | + + + | Home Phone [...] Team Providers + +------+ + | Care Siebel Architect Name | Role | Phone | + +------+ + | Juan Cherry DO | PCP | | + +------+ + Reason for Visit +---------+ + | Reason | Comments | +---------+ + | Results | walking oximetry | +---------+ + Encounter Details +--------+ + + + + | Date | Type | Department | Care Team | Description | +--------+ + + + + | 04/12/ | Telephone | [facility] [place] | [place], | Results (walking | | 2013 | | PULMONARY [address] | Loreta Alonso MD | oximetry) | | | | [place], | | | | | | [place] [address] | | | | | | [phone] | | | +--------+ + + + [...] | | | | | | [place] [address] | | | | | | [phone] | | | | | | | [...]
--- OUTSIDE RECORDS SUMMARY | ~2019-01-15 | XMS | Encounter Summary ---
Demographics + + + | Address | [address] | | | [place] [address] | + + + | Home Phone [...] Team Providers + +------+ + | Care District Agent Name | Role | Phone | + +------+ + | Juan Cherry DO | PCP | | + +------+ + Encounter Details +--------+ + + + + | Date | Type | Department | Care Team | Description | +--------+ + + + + | 11/14/ | Abstract | [facility] [place] | Jared Mcdonough, | | | 2014 | | CARDIOLOGY [address] | MD [address] [place] | | | | | [place], | [place], | | | | | [place] [address] | [place] [address] | | | | | [phone] | [phone] | | | | | | | [...] [place] | | | | | | [address] | | | | | | | | +--------+---------+ + + + | 11/24/ | Office | Cardiology | [place], | | | 2019 | Visit | | SINDHU Erickson [address] | | | | | | [place], | | | | | | [place] [address] | | | | | | [phone] | | | | | | | [...]
--- OUTSIDE RECORDS SUMMARY | ~2019-01-15 | XMS | Encounter Summary ---
Demographics + + + | Address | [address] | | | [place] [address] | + + + | Home Phone [...] Team Providers + +------+ + | Care Liberal Arts Dean Name | Role | Phone | [...] Description | +--------+--------+ + + + | 03/18/ | Refill | [facility] [place] | [place], | Medication Refill | | 2013 | | PULMONARY [address] | Loreta Alonso MD | | | | | [place], | | | | | | [place] [address] | | | | | | [phone] | | | +--------+--------+ + + + [...] [place] | | | | | | [address] | | | | | | | | +--------+---------+ + + + | 11/24/ | Office | Cardiology | [place], | | | 2019 | Visit | | SINDHU Erickson [address] | | | | | | [place] | | | | | | [place] [address] | | | | | | [phone] | | | | | | | | +--------+---------+ + + + documented as of this encounter Visit Diagnoses Not on filedocumented in this encounter"
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
--- OUTSIDE RECORDS SUMMARY | ~2019-01-15 | XMS | Encounter Summary ---
Demographics + + + | Address | [address] | | | [place] [address] | + + + | Home Phone [...] Team Providers + +------+ + | Care Diesel Maintenance Technician Name | Role | Phone | [...] | | | | [facility] | [address] | [address] | | | | | EXERCISE | [place], | [place] | | | | | | [place] [address] | [place], [place] | | | | | | Phone: | [address] | | | | | | [phone] | Phone: | | | | | | Fax: | [phone] | | | | | | [phone] | Fax: | | | | | | | [phone] | +--------+--------+ + + + + Encounter Details +--------+---------+ + + + | Date | Type | Department | Care Team | Description | +--------+---------+ + + + | 07/09/ | Office | [facility] | Jared Mcdonough, | Chronic obstructive | | 2017 | Visit | [facility] | MD Migdalia King | pulmonary disease, | | | | [facility] [address] [place], | unspecified COPD | | | | [address] [place] | [place] [address] | type (HCC) (Primary | | | | [place] [address] | [phone] | Dx); Pulmonary | | | | [phone] | | emphysema, | | | | [...] [place] | | | | | | [address] | | | | | | | | +--------+---------+ + + + | 11/24/ | Office | Cardiology | [place], | | | 2019 | Visit | | SINDHU Erickson [address] | | | | | | [place], | | | | | | [place] [address] | | | | | | [phone] | | | | | | | | +--------+---------+ + + + documented as of this encounter Visit Diagnoses + + | Diagnosis | + + | Chronic obstructive pulmonary disease, unspecified COPD type (HCC) - Primary | + + | Pulmonary emphysema, unspecified emphysema type (HCC) | + + documented in this encounter"
--- OUTSIDE RECORDS SUMMARY | ~2019-01-15 | XMS | Encounter Summary ---
Demographics + + + | Address | [address] | | | [place] [address] | + + + | Home Phone [...] Team Providers + +------+ + | Care Recruiting Consultant Name | Role | Phone | [...] | RN | | | | | [place], | | | | | | [place] [address] | | | | | | [phone] | | | +--------+ + + + [...] [place] | | | | | | [address] | | | | | | | | +--------+---------+ + + + | 11/24/ | Office | Cardiology | [place], | | | 2020 | Visit | | SINDHU Erickson [address] | | | | | | [place], | | | | | | [place] [address] | | | | | | [phone] | | | | | | | | +--------+---------+ + + + documented as of this encounter Visit Diagnoses Not on filedocumented in this encounter"
--- OUTSIDE RECORDS SUMMARY | ~2019-01-15 | XMS | Encounter Summary ---
Demographics + + + | Address | [address] | | | [place] [address] | + + + | Home Phone [...] Team Providers + +------+ + | Care Flap Curer Name | Role | Phone | + [...] | RN | | | | | [place], | | | | | | [place] [address] | | | | | | [phone] | | | +--------+ + + + [...] [place] | | | | | | [address] | | | | | | | | +--------+---------+ + + + | 11/24/ | Office | Cardiology | [place], | | | 2020 | Visit | | SINDHU Erickson [address] | | | | | | [place], | | | | | | [place] [address] | | | | | | [phone] | | | | | | | | +--------+---------+ + + + documented as of this encounter Visit Diagnoses Not on filedocumented in this encounter"
--- OUTSIDE RECORDS SUMMARY | ~2019-01-15 | XMS | Encounter Summary ---
Demographics + + + | Address | [address] | | | [place] [address] | + + + | Home Phone [...] Providers + +------+ + | Care Supervisor Soldering Name | Role | Phone | + +------+ + | Juan Cherry DO | PCP | | + +------+ + Encounter Details +--------+ + + + + | Date | Type | Department | Care Team | Description | +--------+ + + + + | 07/19/ | Orders Only | [facility] [place] | Marilyn Osborne, | | | 2014 | | PULMONARY [address] | RN | | | | | [place], | | | | | | [place] [address] | | | | | | [phone] | | | +--------+ + + + [...] [place] | | | | | | [address] | | | | | | | | +--------+---------+ + + + | 11/24/ | Office | Cardiology | [place], | | | 2019 | Visit | | SINDHU Erickson [address] | | | | | | [place], | | | | | | [place] [address] | | | | | | [phone] | | | | | | | | +--------+---------+ + + + documented as of this encounter Visit Diagnoses Not on filedocumented in this encounter"
--- OUTSIDE RECORDS SUMMARY | ~2019-01-15 | XMS | Encounter Summary ---
Demographics + + + | Address | [address] | | | [place] [address] | + + + | Home Phone [...] Team Providers + +------+ + | Care Account Executive Metalworking Name | Role | Phone | + +------+ + | Juan Cherry DO | PCP | | + +------+ + Encounter Details +--------+ + + + + | Date | Type | Department | Care Team | Description | +--------+ + + + + | 09/09/ | Hospital | [facility] | Conversion | Pain | | 2015 | Encounter | CONVERSION [address] | Transaction, | | | | | [address] | Provider Unknown | | | | | [place], [place] | [phone] | | | | | [address] | | | | | | [phone] | | | +--------+ + + + [...] | | | | | order to [facility]. | | | | | + [...] | | | | [facility] | | | | | | [address] | | | | | | | | +--------+---------+ + + + | 11/24/ | Office | Cardiology | [place], | | | 2019 | Visit | | SINDHU Erickson [address] | | | | | | [place], | | | | | | [place] [address] | | | | | | [phone] | | | | | | | [...]
--- OUTSIDE RECORDS SUMMARY | ~2019-01-15 | XMS | Encounter Summary ---
Demographics + + + | Address | [address] | | | [place] [address] | + + + | Home Phone [...] + +------+ + | Care Director Of Strategic Partnerships Name | Role | Phone | + [...] + + + + | 04/13/ | Emergency | [facility] | Alverto Tyler, | Abdominal pain, | | 2016 | | [facility] | [address] | acute, epigastric | | | | CENTER [address] | [place] | (Primary Dx) | | | | [place] | [address] | | | | | [address] | | | | | | [phone] | Ozzy Louis | | | | | | MD Julio [address] | | | | | | [place] | | | | | | [address] | | | | | | [phone] | | | | | | | | | | | | Nestor Martinez MD | | | | | | [address] | | | | | | [place] | | | | | | [phone] | | | | | | | [...] + + + | Blood Pressure | 113/60 | 04/13/2015 9:11 PM | | | | | PST | | + + + + + | Pulse | 83 | 04/13/2015 9:11 PM | | | | | PST | | + + + + + | Temperature | 36.5 C (97.7 F) | 04/13/2015 7:04 PM | | | | | PST | | + + + + + | Respiratory Rate | 16 | 04/13/2015 9:11 PM | | | | | PST | | + + + + + | Oxygen Saturation | 95% | 04/13/2015 9:11 PM | | | | | PST | | + + + + + | Inhaled Oxygen | - | - | | | Concentration | | | | + + + + + | Weight | 80.7 kg (178 lb) | 04/13/2015 7:04 PM | | | | | PST | | + + + + + | Height | 157.5 cm (5' 2") | 04/13/2015 7:04 PM | | | | | PST | | + + + + + | Body Mass Index | 32.56 | 04/13/2015 7:04 PM | | | | | PST [...] documented as of this encounter Discharge Instructions Alverto Reid MD - 04/13/2015Avoid fatty foods, use Maalox as needed. Rech leigh tomorrow as planned with regular provider considering GI consultation and possible EGD documented in this encounter Medications at Time [...] | | | | | order to [facility]. | | | | | + [...] | | | | | | [facility]. | | | | | [...] [place] | | | | | | [address] | | | | | | | | +--------+---------+ + + + | 11/24/ | Office | Cardiology | [place], | | | 2020 | Visit | | SINDHU Erickson [address] | | | | | | [place], | | | | | | [place] [address] | | | | | | [phone] | | | | | | | | +--------+---------+ + + + + +------+--------+ + + | Name | Type | Priori | Associated Diagnoses | Date/Time | | | | ty | | | + +------+--------+ + + | ED INFORMATION | BALWINDER | Routin | | 04/13/2015 7:22 PM | | EXCHANGE | | e | | PST | + +------+--------+ + + documented as of this encounter Procedures + +--------+ + + + | Procedure Name | Priori | Date/Time | Associated Diagnosis | Comments | | | ty | | | | + +--------+ + + + | US ABDOMEN LIMITED | STAT | 04/13/2015 | | Results for this | | | | 9:00 PM | | procedure are in the | | | | PST | | results section. | + +--------+ + + + | CBC W/AUTO | STAT | 04/13/2015 | | Results for this | | DIFFERENTIAL | | 7:44 PM | | procedure are in the | | | | PST | | results section. | + +--------+ + + + | COMPREHENSIVE | STAT | 04/13/2015 | | Results for this | | METABOLIC PANEL | | 7:44 PM | | procedure are in the | | | | PST | | results section. | + +--------+ + + + | ED INFORMATION | Routin | 04/13/2015 | | | | EXCHANGE | e | 7:22 PM | | | | | | PST | | | + +--------+ + + + documented in this encounter Results US Abdomen Limited (04/13/2015 9:00 PM PST) + + | Specimen | + + | | + + + + + | Narrative | Performed At | + + + | LIMITED RIGHT UPPER QUADRANT ULTRASOUND: 04/13/2015 8:25 PM | [facility] | | CLINICAL HISTORY: ABDOMINAL PAIN COMPARISON:None FINDINGS: | | | Liver:The liver is of normal echogenicity and echo architecture. There | | | is no intrahepatic biliary or venous dilation. No focal hepatic | | | abnormalities are present. Gallbladder:Gallbladder shows normal | | | contour with no wall thickening, pericholecystic fluid or stone. 3 mm | | | nonmobile focus on the anterior wall of the gallbladder, typical for | | | follow-up. CBD: Common bile duct measures 4 mm. Pancreas:All parts | | | of the pancreas are seen and it shows normal echogenicity and | | | appearance. No pancreatic ductal dilation is seen. Right kidney:Right | | | kidney is also included on this examination. It shows normal | | | echogenicity and echo architecture. No hydronephrosis. Maximum | | | dimension is 9.6 cm. Vasculature:Blood flow in the inferior vena | | | cava and hepatic veins is normal. Portal venous blood flow is normal | | | in pattern and direction. IMPRESSION - Incidental note of small | | | gallbladder polyp. Otherwise normal right upper quadrant ultrasound. | | | Dictated and Signed by: Van Ren MD Electronically | | | signed: 04/14/2015 10:31 AM | | + + + + + | Procedure Note | + + | Reed, Rad Results In - 04/14/2015 10:34 AM PST LIMITED RIGHT UPPER QUADRANT | | ULTRASOUND: 04/13/2015 8:25 PMCLINICAL HISTORY: ABDOMINAL | | PAINCOMPARISON:NoneFINDINGS:Liver:The liver is of normal echogenicity and echo | | architecture. There is nointrahepatic biliary or venous dilation. No focal hepatic | | abnormalities arepresent.Gallbladder:Gallbladder shows normal contour with no wall | | thickening,pericholecystic fluid or stone. 3 mm nonmobile focus on the anterior wall of | | thegallbladder, typical for follow-up.CBD: Common bile duct measures 4 mm.Pancreas:All | | parts of the pancreas are seen and it shows normal echogenicity andappearance. No | | pancreatic ductal dilation is seen.Right kidney:Right kidney is also included on this | | examination. It shows normalechogenicity and echo architecture. No hydronephrosis. | | Maximum dimension is 9.6cm.Vasculature:Blood flow in the inferior vena cava and hepatic | | veins is normal.Portal venous blood flow is normal in pattern and direction.IMPRESSION - | | Incidental note of small gallbladder polyp. Otherwise normal rightupper quadrant | | ultrasound.Dictated and Signed by: Van Ren MD Electronically signed: 04/14/2015 | | 10:31 AM | |appearance. No pancreatic ductal dilation is seen. | |Right kidney:Right kidney is also included on this examination. It shows normal | |echogenicity and echo architecture. No hydronephrosis. Maximum dimension is 9.6 | |cm. | |Vasculature:Blood flow in the inferior vena cava and hepatic veins is normal. | |Portal venous blood flow is normal in pattern and direction. | | | |IMPRESSION - Incidental note of small gallbladder polyp. Otherwise normal right | |upper quadrant ultrasound. | | | |Dictated and Signed by: Van Ren MD | | Electronically signed: 04/14/2015 10:31 AM | + + + +---------+ + + | Performing | Address | City/State/Zipcode | Phone Number | | Organization | | | | + +---------+ + + | [facility] | | | | + +---------+ + + CBC w/ Auto Differential (04/13/2015 7:44 PM PST) + + + + + [...] + + + + | RBC | 4.97 | 3.70 - 5.20 | [facility] | | | | | M/uL | [facility] | | | | | | MEDICAL | | | | | | CENTER - | | | | | | LABORATORY | | + + + + + + | Hemoglobin | 14.4 | 11.5 - 16.0 | [facility] | | | | | g/dL | [facility] | | | | | | MEDICAL | | | | | | CENTER - | | | | | | LABORATORY | | + + + + + + | Hematocrit | 42.4 | 34.0 - 47.0 % | [facility] | | | | | | [facility] | | | | | | [facility] - | | | | | | LABORATORY | | + + + + + + | MCV | 85.3 | 83.0 - 101.0 fL | [facility] | | | | | | [facility] | | | | | | [facility]ICAL | | | | | | CENTER - | | | | | | LABORATORY | | + + + + + + | MCH | 28.9 | 28.0 - 35.0 pg | [facility] | | | | | | [facility] | | | | | | MEDICAL | | | | | | CENTER - | | | | | | LABORATORY | | + + + + + + | MCHC | 33.9 | 32.0 - 36.0 | [facility] | | | | | g/dL | [facility] | | | | | | MEDICAL | | | | | | CENTER - | | | | | | LABORATORY | | + + + + + + | RDW-CV | 13.1 | <15.0 % | [facility] | | | | | | [facility] | | | | | | MEDICAL | | | | | | CENTER - | | | | | | LABORATORY | | + + + + + + | Platelet | 397 | 140 - 440 K/uL | [facility] | | | Count | | | [facility] | | | | | | MEDICAL | | | | | | CENTER - | | | | | | LABORATORY | | + + + + + + | MPV | 6.9 | fL | [facility] | | | | | | [facility] | | | | | | MEDICAL | | | | | | CENTER - | | | | | | LABORATORY | | + + + + + + | % | 82.6 (H) | 45.0 - 82.0 % | [facility] | | | Neutrophils | | | [facility] | | | | | | MEDICAL | | | | | | CENTER - | | | | | | LABORATORY | | + + + + + + | % | 14.4 (L) | 20.0 - 45.0 % | [facility] | | | Lymphocytes | | | [facility] | | | | | | MEDICAL | | | | | | CENTER - | | | | | | LABORATORY | | + + + + + + | % Monocytes | 2.2 (L) | 4.0 - 12.0 % | [facility] | | | | | | [facility] | | | | | | MEDICAL | | | | | | CENTER - | | | | | | LABORATORY | | + + + + + + | % | 0.3 | 0.0 - 5.0 % | [facility] [...] + + + + | Absolute | 9.30 (H) | 1.80 - 8.50 | [facility] | | | Neutrophils | | K/uL | [facility] | | | | | | MEDICAL | | | | | | CENTER - | | | | | | LABORATORY | | + + + + + + | Absolute | 1.60 | 0.60 - 3.20 | [facility] | | | Lymphocytes | | K/uL | [facility] | | | | | | MEDICAL | | | | | | CENTER - | | | | | | LABORATORY | | + + + + + + | Absolute | 0.30 | 0.00 - 1.00 | [facility] | [...] | Basophils | | K/uL | [facility] | [...] + | [address] | [address] | [place], [place] | [phone] | | [facility] | | [address] | | | - LABORATORY | | | | + + + + + Comprehensive Metabolic Panel (04/13/2015 7:44 PM PST) + + + + + [...] + + + + | K | 4.2 | 3.5 - 5.1 | [facility] | | | | | mmol/L | [facility] | | | | | | MEDICAL | | | | | | CENTER - | | | | | | LABORATORY | | + + + + + + | Cl | 103 | 98 - 109 mmol/L | [facility] [...] + + + + | Glucose | 172 (H) | 70 - 109 mg/dL | [...] + + + + | Creatinine | 0.88 | 0.60 - 1.30 | [facility] | | | | | mg/dL | [facility] | | | | | | [facility] | | | | | | CENTER - | | | | | | LABORATORY | | + + + + + + | eGFR if not | >60Comment: GLOMERULAR | >=60 | [facility] | | | | FILTRATION | mL/min/1.73m2 | [facility] | | | [place] | RATE,ESTIMATED | | MEDICAL | | | | mL/min/1.15x3Gshe than | | CENTER - | | [...] | | | | | mg/dL | [facility] | | | | | | MEDICAL | | | | | | CENTER - | | | | | | LABORATORY | | + + + + + + | Albumin | 3.5 | 3.2 - 5.0 g/dL | [facility] [...] + + + + | Total | 6.4 | 6.0 - 7.8 g/dL | [facility] | | | Protein | | | [facility] | | | | | | MEDICAL | | | | | | CENTER - | | | | | | LABORATORY | | + + + + + + | AST | 20Comment: This is an | 10 - 42 [...] + + + + | ALT | 12Comment: This is an | 6 - 45 [...] + + + + | Globulin | 2.9 | g/dL | [facility] | | | | | | [facility] | | | | | | MEDICAL | | | | | | CENTER - | | | | | | LABORATORY | | + + + + + + | Albumin/Jewell | 1.2 | | [facility] | | | bulin Ratio | | | [facility] | | | | | | MEDICAL | | | | | | CENTER - | | | | | | LABORATORY | | + + + + + + | BUN/Creatin | 9.1 | | [facility] | | | ine [...] ST. | [address] | [place], [place] | [phone] | | [facility] | | [address] | | | - LABORATORY | | | | + + + + + documented in this encounter Visit Diagnoses + + | Diagnosis | + + | Abdominal pain, acute, epigastric - Primary Abdominal pain, epigastric | + + documented in this encounter Administered Medications + +--------+ +-------+------+------+ | Medication Order | MAR | Action | Dose | Rate | Site | | | Action | Date | | | | + +--------+ +-------+------+------+ | famotidine (PEPCID) injection | Given | 04/13/19 | 20 mg | | | | 20 mg 20 mg, Intravenous, ONCE, | | 16 7:49 | | | | | Carey 04/13/15 at 1940, For 1 dose, | | PM PST | | | | | Prior to administration, prepare | | | | | | | a 20 mg dose by diluting 2 mL of | | | | | | | famotidine 10 mg/mL to 10 mL with | | | | | | | normal saline., | | | | | | + +--------+ +-------+------+------+ +---+---+ | | | +---+---+ + +-------+ +------+---+---+ | HYDROmorphone (DILAUDID) | Given | 04/13/19 | 1 mg | | | | injection 1 mg 1 mg, | | 16 7:48 | | | | | Intravenous, ONCE, Carey 04/13/15 at | | PM PST | | | | | 1940, For 1 dose | | | | | | + +-------+ +------+---+---+ +---+---+ | | | +---+---+ + +-------+ +------+---+---+ | ondansetron (ZOFRAN) injection | Given | 04/13/19 | 8 mg | | | | 8 mg 8 mg, Intravenous, ONCE, | | 16 7:47 | | | | | Carey 04/13/15 at 1940, For 1 dose | | PM PST | | | | + +-------+ +------+---+---+ +---+---+ | | | +---+---+ documented in this encounter
--- OUTSIDE RECORDS SUMMARY | ~2019-01-15 | XMS | Encounter Summary ---
Demographics + + + | Address | [address] | | | [place] [address] | + + + | Home Phone [...] Providers + +------+ + | Care Motor Lodge Clerk Name | Role | Phone | [...] Provider Unknown | | | | | [place], [place] | [phone] | | | | | [address] | | | | | | [phone] | | | +--------+ + + + [...] | | | | [facility] | | | | | | [address] | | | | | | | | +--------+---------+ + + + | 11/24/ | Office | Cardiology | [place], | | | 2019 | Visit | | SINDHU Erickson [address] | | | | | | [place], | | | | | | [place] [address] | | | | | | [phone] | | | | | | | [...]
--- OUTSIDE RECORDS SUMMARY | ~2019-01-15 | XMS | Encounter Summary ---
Demographics + + + | Address | [address] | | | [place] [address] | + + + | Home Phone [...] Team Providers + +------+ + | Care Multi Sensor Operator Name | Role | Phone | [...] + + | 08/24/ | Office | [facility] | Kevin Sandoval, | COPD (chronic | | 2015 | Visit | PULMONARY [address] | MD [address] | obstructive | | | | [place], | [place], [place] | pulmonary disease) | | | | [place] [address] | [address] | ([facility]) (Primary Dx); | | | | [phone] | | Hypoxemia ([facility]); | | | | | | COPD with acute | | | | | | bronchitis ([facility]) | +--------+---------+ + + + Social History [...] your ankles gets worse Dizziness or weakness [id number] [facility] [place] [address]. All righ ts reserved. This information is [...] [facility]) 10/28/2012 Overview: Managed by [facility] along with hypothyroidism Osteoarthritis Tachycardia [...] 15 tablet, Rfl: 3 Respiratory Therapy Supplies [facility], Please provide patient with necessary CPAP supplies (she did not specify, okay to send order as appropriate) Diagnosis Code(s)327.23 . Length of Nee d 99 months. Please send order to [facility] Disp: 1 each, Rfl: 0 Respiratory Therapy Supplies MIS, Change CPAP back to 11-14 cm H2O. All necessary supplies . No oxygen bleed in. Diagnosis Code(s)327.23. Length of Need: Lifetime. Please send order t o [facility]. This is not a new order, [...] | | | | | | [place] [address] | | | | | | [phone] | | | | | | | [...]
--- OUTSIDE RECORDS SUMMARY | ~2019-01-15 | XMS | Encounter Summary ---
Demographics + + + | Address | [address] | | | [place] [address] | + + + | Home Phone [...] Team Providers + +------+ + | Care Production Stage Manager Name | Role | Phone | [...] + + | 08/26/ | Emergency | [facility] | Ozzie Hayes | COPD (chronic | | 2015 | | [facility] | MD Ran [address] | obstructive | | | | [place] [address] | [place] [facility] | pulmonary disease) | | | | [place] | [place] [address] | ([facility]) (Primary Dx) | | | | [address] | [phone] | | | | | [phone] | | | +--------+ + + + [...] sent through Care Everywhere.COPD, WHAT IS ( [place])documented in this encounter Medications at Time of [...] | | | | send order to [facility] | | | | | | | [facility]. | | | | | | | [...] | | | | | ([facility]) | | | | | | [...] | | | | | ([facility]) | | | | | | [...] | | | | | ([facility]) | | | | | | [...] | | | | | ([facility]) | | | | | | [...] [place] | | | | | | [address] | | | | | | | | +--------+---------+ + + + | 11/24/ | Office | Cardiology | [place], | | | 2019 | Visit | | SINDHU Erickson [address] | | | | | | [place], | | | | | | [place] [address] | | | | | | [phone] | | | | | | | [...] -------- ---- | | | 08/26/2014 04:46 [facility] | | | Center Emergency -Difficulty Breathing 07/10/2014 13:41 | | | [facility] Emergency 0. | | | SYNCOPAL EPISODE VISIT COUNT (1 YR.) Visits [place] | | | Dx Location ------ --------- 2 | | | 0 [facility] 3 | | | 0 [facility] 5 | | | 0 Total Note: Visits indicate | | | total known visits. [place] Dx are the number of primary diagnoses | | | on the [facility]'s non-emergent dx list. | | | | | | --- [facility] has no Care Guidelines for this patient. [place] | | | Prescription Review PDMP Report [...] + + | Performing | Address | City/State/[facility] | Phone Number | | [...]
--- OUTSIDE RECORDS SUMMARY | ~2019-01-15 | XMS | Encounter Summary ---
Demographics + + + | Address | [address] | | | [place] [address] | + + + | Home Phone [...] Providers + +------+ + | Care Warehouse Freight Handler Name | Role | Phone [...] | | | | | [place] | [place] | | | | | [address] | [address] | | | | | [phone] | | | +--------+ + + + [...] evaluation. [facility] since [facility] was positive for nitrites. [...] | | | | | [place] [address] | | | | | | [phone] | | | | | | | [...] [address] | [place] | [phone] | | [facility] | | [address] | | | - LABORATORY | | | | + + + + + POCT Urinalysis Dipstick Automated (07/28/2017 2:51 PM PDT) + + + + + + | Component | Value | Ref Range | Performed | Pathologist | | | | | At | Signature | + + + + + + | Color, UA, | Aiken (A) | Yellow, Light | | | [...] 1.001 - 1.030 | | | | Lissie, | | | | | | UA, [...]
--- OUTSIDE RECORDS SUMMARY | ~2019-01-15 | XMS | Encounter Summary ---
Demographics + + + | Address | [address] | | | [place] [address] | + + + | Home Phone [...] Team Providers + +------+ + | Care Keeper Head Name | Role | Phone | + +------+ + | Juan Cherry DO | PCP | | + +------+ + Reason for Visit +--------+ + | Reason | Comments | +--------+ + | Other | referral to relay shop supervisor or dietian | +--------+ + Encounter Details +--------+ + + + + | Date | Type | Department | Care Team | Description | +--------+ + + + + | 04/03/ | Telephone | [facility] | [place], | Other (referral to | | 2017 | | CARDIOLOGY [address] | SINDHU Erickson [address] | relay shop supervisor or | | | | [place], | [place], | dietian) | | | | [place] [address] | [place] [address] | | | | | [phone] | [phone] | | | | | | | [...] [place] | | | | | | [place] [address] | | | | | | [phone] | | | | | | | | +--------+---------+ + + + documented as of this encounter Visit Diagnoses Not on filedocumented in this encounter"
--- OUTSIDE RECORDS SUMMARY | ~2019-01-15 | XMS | Encounter Summary ---
Demographics + + + | Address | [address] | | | [place] [address] | + + + | Home Phone [...] Team Providers + +------+ + | Care Picking Crew Supervisor Name | Role | Phone [...] + + | 05/01/ | Telephone | [facility] | Lencho Goss MD | Other | | 2015 | | GASTROENTEROLOGY | [address], [place] | | | | | [address] [place] | [address] [place], [place] | | | | | [address] [place], [place] | [address] | | | | | [address] | | | | | | [phone] | | | +--------+ + + + [...] [place] | | | | | | [address] | | | | | | | | +--------+---------+ + + + | 11/24/ | Office | Cardiology | [place], | | | 2019 | Visit | | SINDHU Erickson [address] | | | | | | [place], | | | | | | [place] [address] | | | | | | [phone] | | | | | | | | +--------+---------+ + + + documented as of this encounter Visit Diagnoses Not on filedocumented in this encounter"
--- OUTSIDE RECORDS SUMMARY | ~2019-01-15 | XMS | Encounter Summary ---
Demographics + + + | Address | [address] | | | [place] [address] | + + + | Home Phone [...] Team Providers + +------+ + | Care Record Press Supervisor Name | Role | Phone | + +------+ + | Juan Cherry DO | PCP | | + +------+ + Encounter Details +--------+---------+ + + + | Date | Type | Department | Care Team | Description | +--------+---------+ + + + | 10/01/ | Office | [facility] | Jared Mcdonough, | Pulmonary emphysema, | | 2017 | Visit | [facility] | MD [address] | unspecified | | | | REHABILITATION [address] [place], | emphysema type (HCC) | | | | [address] [place] | [place] [address] | (Primary Dx); | | | | [place] [address] | [phone] | Chronic obstructive | | | | [phone] | | pulmonary disease, | | | | | | unspecified COPD | | | | | | type (HCC); Mild | | | | | | persistent asthma | | | | | | without complication | +--------+---------+ + + + Social [...] this encounter Progress Notes Desean Chris - 10/01/2016 11:45 AM PDTPatient tolerated exercise session without any [...] | | | | | | [place] [address] | | | | | | [phone] | | | | | | | | +--------+---------+ + + + documented as of this encounter Visit Diagnoses + + | Diagnosis | + + | Pulmonary emphysema, unspecified emphysema type (HCC) - Primary | + + | Chronic obstructive pulmonary disease, unspecified COPD type (HCC) | + + | Mild persistent asthma without complication Unspecified asthma | + + documented in this encounter"
--- OUTSIDE RECORDS SUMMARY | ~2019-01-15 | XMS | Encounter Summary ---
Demographics + + + | Address | [address] | | | [place] [address] | + + + | Home Phone [...] Team Providers + +------+ + | Care Molasses Coloring Operator Name | Role | Phone | + +------+ + | Juan Cherry DO | PCP | | + +------+ + Reason for Visit +---------+ + | Reason | Comments | +---------+ + | Results | nocturnal oximetry | +---------+ + Encounter Details +--------+ + + + + | Date | Type | Department | Care Team | Description | +--------+ + + + + | 09/21/ | Telephone | [facility] | Kevin Sandoval, | Results (nocturnal | | 2013 | | PULMONARY [address] | MD [address] | oximetry) | | | | [place], | [place] | | | | | [place] [address] | [address] | | | | | [phone] | | | +--------+ + + + [...] | | | | | | [place] [address] | | | | | | [phone] | | | | | | | | +--------+---------+ + + + documented as of this encounter Visit Diagnoses Not on filedocumented in this encounter"
--- OUTSIDE RECORDS SUMMARY | ~2019-01-15 | XMS | Encounter Summary ---
Demographics + + + | Address | [address] | | | [place] [address] | + + + | Home Phone [...] Team Providers + +------+ + | Care Claim Taker Name | Role | Phone | + +------+ + PCP | Unavailable | + +------+ + Encounter Details +--------+ + + + + | Date | Type | Department | Care Team | Description | +--------+ + + + + | 10/06/ | [facility] | [facility] | | | | 2008 | Encounter | MED CTR LABORATORY | | | | | | [address] [place] | | | | | | [place] | | | | | | [address] | | | | | | [phone] | | | +--------+ + + + [...] [place] | | | | | | [address] | | | | | | | | +--------+---------+ + + + | 11/24/ | Office | Cardiology | [place], | | | 2020 | Visit | | SINDHU Erickson [address] | | | | | | [place], | | | | | | [place] [address] | | | | | | [phone] | | | | | | | | +--------+---------+ + + + documented as of this encounter Visit Diagnoses Not on filedocumented in this encounter"
--- OUTSIDE RECORDS SUMMARY | ~2019-01-15 | XMS | Encounter Summary ---
Demographics + + + | Address | [address] | | | [place] [address] | + + + | Home Phone [...] Team Providers + +------+ + | Care Bleach Boiler Filler Name | Role | Phone | + [...] Description | +--------+--------+ + + + | 06/20/ | Refill | IS[facility]K RAZA | Andriy Weber | Medication Refill | | 2017 | | [address] | MD [address] | | | | | [place] | [facility] | | | | | [address] | [place] [address] | | | | | [phone] | [phone] | | | | | | | [...] [place] | | | | | | [address] | | | | | | | | +--------+---------+ + + + | 11/24/ | Office | Cardiology | [place], | | | 2019 | Visit | | SINDHU Eirckson [address] | | | | | | [place], | | | | | | [place] [address] | | | | | | [phone] | | | | | | | | +--------+---------+ + + + documented as of this encounter Visit Diagnoses Not on filedocumented in this encounter"
--- OUTSIDE RECORDS SUMMARY | ~2019-01-15 | XMS | Encounter Summary ---
Demographics + + + | Address | [address] | | | [place] [address] | + + + | Home Phone [...] Team Providers + +------+ + | Care Over Short And Damage Clerk Name | Role | Phone | [...] | | | | | [place] | [facility] | | | | | [address] | [place] [address] | | | | | [phone] | [phone] | | | | | | | [...] [place] | | | | | | [address] | | | | | | | | +--------+---------+ + + + | 11/24/ | Office | Cardiology | [place], | | | 2019 | Visit | | SINDHU Erickson [address] | | | | | | [place], | | | | | | [place] [address] | | | | | | [phone] | | | | | | | | +--------+---------+ + + + documented as of this encounter Visit Diagnoses Not on filedocumented in this encounter"
--- OUTSIDE RECORDS SUMMARY | ~2019-01-15 | XMS | Encounter Summary ---
Demographics + + + | Address | [address] | | | [place] [address] | + + + | Home Phone [...] | + + +---------+ + | Juana Sianz | ECON | Unknown | | + + +---------+ + | Vahe Khan | ECON | Unknown | | + + +---------+ + Care Team Providers + +------+ + | Care Field Applications Specialist Name | Role | Phone | [...] Services | Rehabilitatio | Chronic | MD Jarde | | | | Required | n | obstructive | [address] | Rehabilitatio | | | | | pulmonary | [address] | [address] | | | | | disease, | [place], | [place] | | | | | unspecified | [place] [address] | [place], [place] | | | | | COPD type | Phone: | [address] | | | | | (HCC) | [phone] | Phone: | | | | | Pulmonary | Fax: | [phone] | | | | | emphysema, | [phone] | Fax: | | | | | unspecified | | [phone] | | | | | emphysema | | | | | | | type ([facility]) | | | +--------+ + + + + + Encounter Details +--------+---------+ + + + | Date | Type | Department | Care Team | Description | +--------+---------+ + + + | 05/07/ | Office | [facility] | Danieljeremyjose Jared, | Mild persistent | | 2017 | Visit | MED CTR CARDIAC | [address] | asthma without | | | | REHABILITATION [address] [place], | complication | | | | [address] [place] | [place] [address] | (Primary Dx); | | | | [place] [address] | [phone] | Chronic obstructive | | | | [phone] | | pulmonary disease, | | | [...] of this encounter Progress Notes Tricia Herron, NURSE TECHNICIAN - 05/07/2016 1:52 PM PDTMsChris Malik is [...] | | | | [place] | | | | | | [address] | | | | | | | | +--------+---------+ + + + | 11/24/ | Office | Cardiology | [place], | | | 2019 | Visit | | SINDHU Erickson [address] | | | | | | [place], | | | | | | [place] [address] | | | | | | [phone] | | | | | | | [...]
--- OUTSIDE RECORDS SUMMARY | ~2019-01-15 | XMS | Encounter Summary ---
Demographics + + + | Address | [address] | | | [place] [address] | + + + | Home Phone [...] Providers + +------+ + | Care Loom Checker Name | Role | Phone | + +------+ + PCP | Unavailable | + +------+ + Encounter Details +--------+ + + + + | Date | Type | Department | Care Team | Description | +--------+ + + + + | 09/27/ | [facility] | [facility] | | | | 2009 | Encounter | MED CTR LABORATORY | | | | | | [address] | | | | | | [place] | | | | | | [address] | | | | | | [phone] | | | +--------+ + + + [...] [place] | | | | | | [address] | | | | | | | | +--------+---------+ + + + | 11/24/ | Office | Cardiology | [place], | | | 2020 | Visit | | SINDHU Erickson [address] | | | | | | [place], | | | | | | [place] [address] | | | | | | [phone] | | | | | | | | +--------+---------+ + + + documented as of this encounter Visit Diagnoses Not on filedocumented in this encounter"
--- OUTSIDE RECORDS SUMMARY | ~2019-01-15 | XMS | Encounter Summary ---
Demographics + + + | Address | [address] | | | [place] [address] | + + + | Home Phone [...] Providers + +------+ + | Care Senior Director Finance Name | Role | Phone | + [...] Juliette, | | | | | | [facility] | Shashi Witt MD | | | | | Headache(784 | [address] | Need | | | | | .0) | [place] | updated | | | | | | [place], | address | | | | | | [place] | | | | | | | [address] | | | | | | | Phone: | | | | | | | [phone] | | | | | | | Fax: | | | | | | | [phone] | | +--------+--------+ + + + + Encounter Details +--------+---------+ + + + | Date | Type | Department | Care Team | Description | +--------+---------+ + + + | 10/19/ | Office | [facility] | Shashi Segovia | Migraines (Primary | | 2013 | Visit | NEUROLOGY ADRIANA | MD Miryam Need updated | Dx); Pituitary mass | | | | [address] [facility], | address | ([facility]) | | | | [address] [place] | | | | | | [place] [address] | | | | | | [phone] | | | +--------+---------+ + + + [...] the face Difficulty with speech or vision [address] [place] [address]. All rights reserve d. This information is not intended as a substitute for professional medical care. Always fo llow your healthcare professional's instructions. documented in this encounter Progress Notes Shashi Segovia MD - 10/19/2013 8:09 AM PDTFormatting of this note might be differe nt from the original. Shashi Segovia MD [address] [place] [address], [address] [place] [id number] Neurology Outpatient New Patient Note Chief Complaint: [...] She has had extensive work up at [facility] in the past, and returns there [...] [facility] [place]) 10/28/2012 Overview: Managed by [facility] along with hypothyroidism Osteoarthritis Tachycardia Asthma Emphysema ([facility]) Migraine Past Surgical History: Past Surgical History Procedure Date Hammer toe surgery right sided Hiatal hernia repair Hiatal hernia Kirk and bso Ovarian cysts, not cancer Colonoscopy 03/[address] [facility] Knee surgery right Wrist surgery right Current [...] order as appropriate) Diagnosis Code(s)327.23 . [facility] of Need 99 months. Please send order to [facility]. Respiratory Therapy Supplies MISC (Taking) Change CPAP back to 11-14 cm H2O. All necessar y supplies. No oxygen bleed in. Diagnosis Code(s)327.23. Length of Need: Lifetime. Please se nd order to [facility]. 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 Social History Main Topics Smoking status: [...] (145 lb) | BMI 26.51 kg /m2 Jeff Sleepiness Scale: 13 General: cachetic HEENT: normal [...] prior records of labs, notes, images from [facility] - Will check baseline pituitary function [...] 2019 | Visit | | [address] | | | | | | [place] | | | | | | [id number] | | | | | | | | +--------+---------+ + + + | 11/24/ | Office | Cardiology | [place], | | | 2019 | Visit | | SINDHU Erickson [address] | | | | | | [place], | | | | | | [place] [address] | | | | | | [phone] | | | | | | | [...] [place] | | | | | | [address] | | | | + + + [...] | Cortisol, | 8.77Comment: Reference | ug/g AMMUNITION OFFICER | REFERENCE | | | Urine, | [...] | | | | than 32 ug/g thermometer maker | | | | + + + [...] Test | | | | | | Directory([facility]).T | | | | | | est developed and | | | | | | characteristics | | | | | | determined by [facility] | | | | | | [facility].See | | | | | | Compliance Statement B: | | | | | | [facility]ura/CSTesting | | | | | | Performed: [facility], [address] | | | | | | [address], [place] | | | | | | [id number] Performed: | | | | | | [facility], [address] [facility], | | | | | | [place] [address] | | | | + + + + + + + + | Specimen | + + | Urine specimen | | (specimen) | + + + + + + + | Performing | Address | City/State/Zipcode | Phone Number | | Organization | | | | + + + + + | [facility] | [address] | [place] [address] | [phone] | + + + + + Adrenocorticotropic [...] [place] | | | | | | [address] | | | | + + + [...] [address] | [place] [address] | [phone] | + + + + + Insulin-Like [...] | | | | | [place] [address] | | | | + + + + + + + + | Specimen | + + | Blood specimen | | (specimen) | + + + + + + + | Performing | Address | City/State/Zipcode | Phone Number | | Organization | | | | + + + + + | [facility] | [address] | [place] [address] | [phone] | + + + + + Prolactin [...] [place] | | | | | | [address] | | | | + + + [...] [address] | [place] [address] | [phone] | + + + + + documented [...]
--- OUTSIDE RECORDS SUMMARY | ~2019-01-15 | XMS | Encounter Summary ---
Demographics + + + | Address | [address] | | | [place] [address] | + + + | Home Phone [...] Team Providers + +------+ + | Care Demolitionist Name | Role | Phone | + [...] | with brief | [address] | [address] | | | | n | loss of | [address] | [place], | | | | | consciousnes | [place], | [place] [address] | | | | | s | [place] [address] | Phone: | | | | | Post-concuss | Phone: | [phone] | | | | | ion vertigo | [phone] | Fax: | | | | | [phone] | Fax: | [phone] | | | | | (ICD-10-CM) | [phone] | | | | | | - [...] + + | 05/27/ | Office | [facility] | Aaron Rodriguez, | Dizziness (Primary | | 2017 | Visit | MED CTR THERAPY PT | MD [address] | Dx); Impaired | | | | OP [address] | [place] | mobility and | | | | [place] | [id number] | activities of daily | | | | [address] | | living; Concussion | | | | [phone] | Lakeshia Cleary, PT | with brief (less | | | | | [address] | than one hour) loss | | | | | [place] | of consciousness; | | | | | [address] | Intractable acute | | | | [...] might be different from t he original. [facility] CTR THERAPY PT OP [address] [place] [address] Physical Therapy Daily Treatment Note Date: 05/27/2016 [...] Rehab Precautions Office Visit from 05/01/2016 in [facility] CTR THERAPY PT OP Rehab Precautions [...] | | | | [place], [place] | | | | | | [address] | | | | | | | | +--------+---------+ + + + | 11/24/ | Office | Cardiology | [place], | | | 2019 | Visit | | SINDHU Erickson [address] | | | | | | [place], | | | | | | [place] [address] | | | | | | [phone] | | | | | | | [...]
--- OUTSIDE RECORDS SUMMARY | ~2019-01-15 | XMS | Encounter Summary ---
Demographics + + + | Address | [address] | | | [place] [address] | + + + | Home Phone [...] Team Providers + +------+ + | Care Catering Chef Name | Role | Phone | + [...] | +--------+ + + + + | 10/16/ | Hospital | [facility] | [place], | Paroxysmal atrial | | 2017 | Encounter | MED CTR NUCLEAR | SINDHU Erickson [address] | tachycardia (HCC); | | | | MEDICINE [address] | [place], | Palpitations | | | | [place], | [place] [address] | | | | | [place] [address] | [phone] | | | | | [phone] | | | +--------+ + + + [...] provide | 1 each | 0 | //20 | | | Therapy Supplies | patient [...] | | | | | order to [facility]. | | | | | + [...] | | | send order to [facility] | | | | | [...] | | | | | ([facility]) | | | | | [...] | | | | | ([facility]) | | | | | [...] tablet by | 30 | 2 | 10/17/19 | | | (PROTONIX) 40 mg | [...] [place] | | | | | | [id number] | | | | | | | | +--------+---------+ + + + | 11/24/ | Office | Cardiology | [place], | | | 2019 | Visit | | SINDHU Erickson [address] | | | | | | [place], | | | | | | [place] [address] | | | | | | [phone] | | | | | | | | +--------+---------+ + + + documented as of this encounter Procedures + +--------+ + + + | Procedure Name | Priori | Date/Time | Associated Diagnosis | Comments | | | ty | | | | + +--------+ + + + | HOLTER MONITOR - 48 | Routin | 10/18/2016 | Paroxysmal atrial | Results for this | | HOUR | e | 11:09 AM | tachycardia (HCC) | procedure are in the | | | | PDT | | results section. | + +--------+ + + + documented in this encounter Results Holter monitor - 48 hour (10/18/2016 11:09 AM PDT) + + + | Narrative | Performed At | + + + | Jared Mcdonough MD 10/18/2016 11:09 PATIENT NAME: Frances ALFORD | | Rosario Malik : 1965: AGE: 51 y.o. | | | PRIMARY CARE: Juan | | | DO CAMILLE Cherry MULTISKILL OPERATOR: Jared Mcdonough MD | | | 48-HOUR HOLTER MONITOR REPORT DATE: 10/16/2016 | | | IMPRESSION: 1) The predominant rhythm is sinus with HR between | | | 44 to 157 bpm. The average HR was 72 bpm during the 47:43 hour | | | recording. 2) There were occasional PVC's (1055 total, mean | | | 22.1/hr) with 10 couplets and no triplets. 3) There were | | | occasional PAC's (1807 total, mean 37.8/hr). 4) There were 842 | | | episodes of sinus bradycardia. The longest was 1183 beats on | | | 02:44. The minimum rate was 41 bpm on 05:58. 5) | | | There were 78 episodes of sinus tachycardia. The longest was | | | 289 beats on 18:15. The maximum rate was 163 bpm on | | | 18:29. 6) Diary was not returned and no symptoms reported. | | | Signed by: Jared Mcdonough MD [facility] 10/18/2016, | | | 10:51 | | + + + + +---------+ [...] Paroxysmal supraventricular tachycardia | + + | Palpitations | + + documented in this encounter"
--- OUTSIDE RECORDS SUMMARY | ~2019-01-15 | XMS | Encounter Summary ---
Demographics + + + | Address | [address] | | | [place] [address] | + + + | Home Phone | | + + + | Preferred Language | Unknown | + + + | Marital Status | Single | + + + | Pentecostal Affiliation | 1041 | + + + | Race | Unknown | + + + | Ethnic Group | Unknown | + + + Author + + + | Author | Located Within [facility] | | | and [place] | + + + | Organization | Located Within [facility] | | [...] Team Providers + +------+ + | Care Yard Person Name | Role | Phone | [...] + + | 09/05/ | Telephone | [facility] | Kevin Sandoval, | Medication Prior | | 2014 | | PULMONARY [address] | MD [address] | Authorization | | | | [place], | [place] | | | | | [place] [address] | [address] | | | | | [phone] | | | +--------+ + + + [...] | | | | | | [place] [address] | | | | | | [phone] | | | | | | | | +--------+---------+ + + + documented as of this encounter Visit Diagnoses Not on filedocumented in this encounter"
--- OUTSIDE RECORDS SUMMARY | ~2019-01-15 | XMS | Encounter Summary ---
Demographics + + + | Address | [address] | | | [place] [address] | + + + | Home Phone [...] Team Providers + +------+ + | Care Commissions Specialist Name | Role | Phone | [...] + | 08/23/ | Telephone | [facility] | Jared Mcdonough, | Records Request | | 2013 | | CARDIOLOGY [address] | MD [address] | | | | | [place], | [place], | | | | | [place] [address] | [place] [address] | | | | | [phone] | [phone] | | | | | | | [...] [place] | | | | | | [address] | | | | | | | | +--------+---------+ + + + | 11/24/ | Office | Cardiology | [place], | | | 2019 | Visit | | SINDHU Erickson [address] | | | | | | [place] | | | | | | [place] [address] | | | | | | [phone] | | | | | | | | +--------+---------+ + + + documented as of this encounter Visit Diagnoses Not on filedocumented in this encounter"
--- OUTSIDE RECORDS SUMMARY | ~2019-01-15 | XMS | Encounter Summary ---
Demographics + + + | Address | [address] | | | [place] [address] | + + + | Home Phone [...] Team Providers + +------+ + | Care Raking Machine Operator Name | Role | Phone | + +------+ + PCP | Unavailable | + +------+ + Encounter Details +--------+ + + + + | Date | Type | Department | Care Team | Description | +--------+ + + + + | 12/01/ | [facility] | | | | 2008 - | Encounter | MED CTR OP REHAB | | | | | | [address] | | | | 12/24/ | | [place] [address] | | | | 2008 | | [phone] | | | +--------+ + + + [...] [place] | | | | | | [address] | | | | | | | | +--------+---------+ + + + | 11/24/ | Office | Cardiology | [place], | | | 2020 | Visit | | SINDHU Erickson [address] | | | | | | [place], | | | | | | [place] [address] | | | | | | [phone] | | | | | | | | +--------+---------+ + + + documented as of this encounter Visit Diagnoses Not on filedocumented in this encounter"
--- OUTSIDE RECORDS SUMMARY | ~2019-01-15 | XMS | Encounter Summary ---
Demographics + + + | Address | [address] | | | [place] [address] | + + + | Home Phone [...] Providers + +------+ + | Care Senior Hardware Design Engineer Name | Role | Phone | + +------+ + | Juan Cherry DO | PCP | | + +------+ + Reason for Visit + + + | Reason | Comments | + + + | Follow-up | rm 3 follow up left armpit abscess | + + + Encounter Details +--------+---------+ + + + | Date | Type | Department | Care Team | Description | +--------+---------+ + + + | 11/08/ | Office | [facility] | Lencho Astorga, | Axillary abscess | | 2015 | Visit | CARE [address] | [address] | (Primary Dx) | | | | [place] | [place] | | | | | [address] | [address] | | | | | [phone] | | | +--------+---------+ + + + [...] + + + | Blood Pressure | 110/68 | 11/08/2014 8:22 AM | | | | | PDT | | + + + + + | Pulse | 79 | 11/08/2014 8:22 AM | | | | | PDT | | + + + + + | Temperature | 36.5 C (97.7 F) | 11/08/2014 8:22 AM | | | | | PDT | | + + + + + | Respiratory Rate | 20 | 11/08/2014 8:22 AM | | | | | PDT | | + + + + + | Oxygen Saturation | 94% | 11/08/2014 8:22 AM | | | | | PDT | | + + + + + | Inhaled Oxygen | - | - | | | Concentration | | | | + + + + + | Weight | 75.3 kg (166 lb) | 11/08/2014 8:22 AM | | | | | PDT | | + + + + + | Height | - | - | | + + + + + | Body Mass Index | 30.36 | 11/04/2014 8:41 AM | | | [...] of this encounter Patient Instructions Patient Instructions Lencho Astorga MD - 11/08/2014 8:42 AM PDTFinish the Septra that y ou are on. Recheck as needed. 8: 42 AM PDT documented in this encounter Progress Notes Lencho Astorga MD - 11/08/2014 9:42 AM PDTFormatting of this note might be different fr om the original. Subjective: Patient ID: Rosario Malik is a 49 y.o. female. HPI Patient's medications, allergies, past medical, surgical, social and family histories were reviewed and updated as appropriate. This lady was seen here 4 days ago for an abscess of the left axilla which was drained. Sh drew is here for a simple recheck. She says it is much better. She is taking Septra. She has no new complaint. Review of Systems Constitutional: Negative. HENT: Negative. Respiratory: Negative. Cardiovascular: Negative. Gastrointestinal: Negative. Objective: Physical Exam Constitutional: She is oriented to person, place, and time. She appears well-developed and well-nourished. No distress. HENT: Head: Normocephalic. Cardiovascular: Normal rate and normal heart sounds. Pulmonary/Chest: Effort normal and breath sounds normal. Musculoskeletal: Normal range of motion. The left axilla has a nearly closed puncture wound where the incision and drainage was done . It is not draining now. There is a little induration of the area which is normal for thi s stage of healing. It is minimally tender. It is obviously much improved. Neurological: She is alert and oriented to person, place, and time. Vitals reviewed. Assessment: 1. Axillary abscess Plan: Please see the AVS for the plan unless outlined elsewhere. She is now 4 days post incision and drainage of this axillary abscess and is dramatically i mproved. I reassured her. I told her to take the Septra until it is gone but she can just recheck as needed. She had no questions. documented in this e ncounter Plan of [...] [place] | | | | | | [address] | | | | | | | | +--------+---------+ + + + | 11/24/ | Office | Cardiology | [place], | | | 2019 | Visit | | SINDHU Erickson [address] | | | | | | [place] | | | | | | [place] [address] | | | | | | [phone] | | | | | | | | +--------+---------+ + + + documented as of this encounter Visit Diagnoses + + | Diagnosis | + + | Axillary abscess - Primary Cellulitis and abscess of upper arm and forearm | + + documented in this encounter"
--- OUTSIDE RECORDS SUMMARY | ~2019-01-15 | XMS | Encounter Summary ---
Demographics + + + | Address | [address] | | | [place] [address] | + + + | Home Phone [...] | +--------+ + + + + | 10/02/ | Telephone | [facility] | Andriy Weber | Appointment | | 2017 | | [address] | MD [address] | | | | | [place] | [facility] | | | | | [address] | [place] [address] | | | | | [phone] | [phone] | | | | | | | [...] [place] | | | | | | [address] | | | | | | | | +--------+---------+ + + + | 11/24/ | Office | Cardiology | [place], | | | 2019 | Visit | | SINDHU Erickson [address] | | | | | | [place] | | | | | | [place] [address] | | | | | | [phone] | | | | | | | | +--------+---------+ + + + documented as of this encounter Visit Diagnoses Not on filedocumented in this encounter"
--- OUTSIDE RECORDS SUMMARY | ~2019-01-15 | XMS | Encounter Summary ---
Demographics + + + | Address | [address] | | | [place] [address] | + + + | Home Phone [...] Team Providers + +------+ + | Care Nutrition Tech Name | Role | Phone | [...] | | [place] | [facility] | | | | | [address] | [place] [address] | | | | | [phone] | [phone] | | | | | | | [...] [place] | | | | | | [address] | | | | | | | | +--------+---------+ + + + | 11/24/ | Office | Cardiology | [place], | | | 2019 | Visit | | SINDHU Erickson [address] | | | | | | [place], | | | | | | [place] [address] | | | | | | [phone] | | | | | | | | +--------+---------+ + + + documented as of this encounter Visit Diagnoses Not on filedocumented in this encounter"
--- OUTSIDE RECORDS SUMMARY | ~2019-01-15 | XMS | Encounter Summary ---
Demographics + + + | Address | [address] | | | [place] [address] | + + + | Home Phone [...] Providers + +------+ + | Care Junior High School Teacher Name | Role | Phone | [...] Closed | | Radiology | Diagnoses | [place], | [address] | | | | | Groin pain, | MD Jared | [address] [place] | | | | | right Hx | [address] | [place], | | | | | of coronary | [address] [address] | [place] [address] | | | | | angiogram | [place], | Phone: | | | | | Peritoneal | [place] [address] | [phone] | | | | | bleeding | Phone: | Fax: | | | | | Procedures | [phone] | [phone] | | | | | CT Abdomen | Fax: | | | | | | Pelvis wo | [phone] | | | | | | Contrast | | | +--------+--------+ + + + + Reason for Visit +--------+ + | Reason | Comments | +--------+ + | Other | cath site painful | +--------+ + Encounter Details +--------+ + + + + | Date | Type | Department | Care Team | Description | +--------+ + + + + | 03/07/ | Telephone | [facility] | Sharonda Dlemycaitie, | Other ([facility] site | | 2015 | | CARDIOLOGY [address] | MD [address] | painful) | | | | [place], | [place], | | | | | [place] [address] | [place] [address] | | | | | [phone] | [phone] | | | | | | | [...] 2019 | Visit | | [address] | | | | | | [place] | | | | | | [address] | | | | | | | | +--------+---------+ + + + | 11/24/ | Office | Cardiology | [place], | | | 2019 | Visit | | SINDHU Erickson [address] | | | | | | [place], | | | | | | [place] [address] | | | | | | [phone] | | | | | | | | +--------+---------+ + + + documented as of this encounter Results CT Abdomen Pelvis wo [...] + | MISCELLANEOUS LAB | | | [phone] | + +---------+ + + | MISCELANIOUS LAB | | | [phone] | + +---------+ + + documented in this encounter Visit Diagnoses + + | Diagnosis | + + | Groin pain, right - Primary | + + | Hx of coronary angiogram Personal history of surgery to heart and great vessels, | | presenting hazards to health | + + | Peritoneal bleeding Hemoperitoneum (nontraumatic) | + + documented in this encounter"
--- OUTSIDE RECORDS SUMMARY | ~2019-01-15 | XMS | Encounter Summary ---
Demographics + + + | Address | [address] | | | [place] [address] | + + + | Home Phone [...] Team Providers + +------+ + | Care Community Development Director Name | Role | Phone | + +------+ + PCP | Unavailable | + +------+ + Encounter Details +--------+ + + + + | Date | Type | Department | Care Team | Description | +--------+ + + + + | 03/04/ | Hospital | [facility] | Jason Carvajal, | | | 2010 - | Encounter | MED CTR MED ONC | [address] | | | | | [address] | [address] [place] | | | 03/06/ | | [place] [address] | [address] | | | 2010 | | [phone] | | | +--------+ + + + [...] [place] | | | | | | [address] | | | | | | | | +--------+---------+ + + + | 11/24/ | Office | Cardiology | [place], | | | 2019 | Visit | | SINDHU Erickson [address] | | | | | | [place], | | | | | | [place] [address] | | | | | | [phone] | | | | | | | | +--------+---------+ + + + documented as of this encounter Visit Diagnoses Not on filedocumented in this encounter"
--- OUTSIDE RECORDS SUMMARY | ~2019-01-15 | XMS | Encounter Summary ---
Demographics + + + | Address | [address] | | | [place] [address] | + + + | Home Phone [...] Team Providers + +------+ + | Care Intensive Care Ambulance Paramedic Name | Role | Phone | + +------+ + | Juan Cherry DO | PCP | | + +------+ + Encounter Details +--------+ + + + + | Date | Type | Department | Care Team | Description | +--------+ + + + + | 04/12/ | Hospital | [facility] | Ozzie Hyaes | | | 2013 | Encounter | MED CTR EMERGENCY | MD Ran [address] | | | | | [place] [address] | [address] [place] | | | | | [place], [place] | [place] [address] | | | | | [address] | [phone] | | | | | [phone] | | | +--------+ + + + [...] | | | send order to [facility] | | | | | | [...] | | | | | | [place] [address] | | | | | | [phone] | | | | | | | [...] Performed At | + + + | [facility] Diagnostic Imaging | [place] | | Department [address], [place] | [facility] | | [ rep ct [address]] [ rep ct [facility] | | st zip] Signed | - IMAGING | | | | | Patient Name: JADYN SCHMITZ | | | Physician: CHEVY : 1965 Age: 48 Sex: F Unit | | | #: [id number] Exam Date: 04/12/13 Location: | | | ER Report #: [id number] Page: | | | %(RAD)RES..mtdd.print.filter("pg") of %(RAD) | | | RES..mtdd.print.filter("tpg") | | | | | | Accession Number: [id number] | | | PORTABLE CHEST CLINICAL HISTORY: [...] Transcribed | | | Date/Time: 04/12/2013 08:42 Patient Case Coordinator: | | | <<Signature on File>> | | | | | | Cesar Ren MD04/12/13 0957 <Electronically signed by | | | Cesar Ren MD> Cesar Ren MD 04/12/13 | | | 0732 Patient Case Coordinator: Medafor Ekgmhdvebovsb16/17/14 0842 | | | Ozzie Hayes MD | | + + + + + + + + | Performing | Address | City/State/Zipcode | Phone Number | | Organization | | | | + + + + + | [facility] | [address] | [place] | [phone] | | [facility] | | [address] | | | - IMAGING | | | | + + + + + documented in this encounter Visit Diagnoses Not on filedocumented in this encounter
--- OUTSIDE RECORDS SUMMARY | ~2019-01-15 | XMS | Encounter Summary ---
Demographics + + + | Address | [address] | | | [place] [address] | + + + | Home Phone [...] Providers + +------+ + | Care Bag Repairer Name | Role | Phone | [...] | | | | [facility] | [address] | [address] | | | | | EXERCISE | [place], | [place] | | | | | | [place] [address] | [place], [place] | | | | | | Phone: | [address] | | | | | | [phone] | Phone: | | | | | | Fax: | [phone] | | | | | | [phone] | Fax: | | | | | | | [phone] | +--------+--------+ + + + + Encounter Details +--------+---------+ + + + | Date | Type | Department | Care Team | Description | +--------+---------+ + + + | 06/25/ | Office | [facility] | Jared Mcdonough, | Chronic obstructive | | 2017 | Visit | MED CTR CARDIAC | [address] | pulmonary disease, | | | | REHABILITATION [address] [place] [place], | unspecified COPD | | | | [address] [place] | [place] [address] | type (HCC) (Primary | | | | [place] [address] | [phone] | Dx) | | | | [phone] | | | +--------+---------+ + + + [...] of this encounter Progress Nima Plunkett-Tricia Crawley, PET CARE ASSOCIATE - 06/25/2016 1:10 PM PDT LOCATED WITHIN [facility] CARDIAC REHABILITATION [address] Located within [facility] [address] Cardiac Rehab Date: 06/25/2016 Patient Information Patient Name: Rosario Malik Date [...] note. Electronically signed by: Tricia Herron RRT, 06/25/2016 13:10 Patient Name: Rosario Malik/: 1965/ document ed [...] [place], | | | | | [place] [address] | | | | | | [phone] | | | | | | | | +--------+---------+ + + + documented as of this encounter Visit Diagnoses + + | Diagnosis | + + | Chronic obstructive pulmonary disease, unspecified COPD type (HCC) - Primary | + + documented in this encounter"
--- OUTSIDE RECORDS SUMMARY | ~2019-01-15 | XMS | Encounter Summary ---
Demographics + + + | Address | [address] | | | [place] [address] | + + + | Home Phone [...] Team Providers + +------+ + | Care Anaesthetic Technician Name | Role | Phone | [...] + + | 06/02/ | Office | [facility] | Andriy Weber | Pyuria (Primary Dx) | | 2018 | Visit | [address] | MD Robert [address] | | | | | [place] | [facility] | | | | | [address] | [place] [address] | | | | | [phone] | [phone] | | | | | | | [...] a past medical history of Adrenal insufficiency ([facility]); Anxiety; Asthma; 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 Please send order to [facility]. 1 each 0 Respiratory Therapy Supplies [facility] Change CPAP back to 11-14 cm H2O. All necessary suppl ies. No oxygen bleed in. Diagnosis Code(s)327.23. Length of Need: Lifetime. Please send orde r to [facility]. This is not a new order, [...] dilated today to a 28 Chilean with Mineral sounds. She tolerated this wel l without [...] This document was generated in part using [employer] voice recognition software. Although ever y effort is made to edit the content, price changer errors may occur. Occasional wrong word or [...] [place] | | | | | | [address] | | | | | | | | +--------+---------+ + + + | 11/24/ | Office | Cardiology | [place], | | | 2019 | Visit | | SINDHU Erickson [address] | | | | | | [place], | | | | | | [place] [address] | | | | | | [phone] | | | | | | | [...] 1.001 - 1.030 | | | | [place], | | | | | | [facility], [...]
--- OUTSIDE RECORDS SUMMARY | ~2019-01-15 | XMS | Encounter Summary ---
Demographics + + + | Address | [address] | | | [place] [address] | + + + | Home Phone [...] Team Providers + +------+ + | Care Steam Shovel Oiler Name | Role | Phone | [...] | | | | | [address] [place] | | | | | | [place] [address] | | | | | | [phone] | | | +--------+ + + + [...] Weber, PT - 05/27/2013 3:22 PM [facility] [place] [address] [facility] [address] Cancellation/No Show Date: 05/27/2013 Patient Information Patient [...] [place] | | | | | | [id number] | | | | | | | | +--------+---------+ + + + | 11/24/ | Office | Cardiology | [place] | | | 2019 | Visit | | SINDHU Erickson [address] | | | | | | [place] | | | | | | [place] [address] | | | | | | [phone] | | | | | | | | +--------+---------+ + + + documented as of this encounter Visit Diagnoses Not on filedocumented in this encounter"
--- OUTSIDE RECORDS SUMMARY | ~2019-01-15 | XMS | Encounter Summary ---
Demographics + + + | Address | [address] | | | [place] [address] | + + + | Home Phone [...] Team Providers + +------+ + | Care Axle Turner Name | Role | Phone | + +------+ + | Juan Cherry DO | PCP | | + +------+ + Encounter Details +--------+ + + + + | Date | Type | Department | Care Team | Description | +--------+ + + + + | 01/07/ | Hospital | [facility] | Lencho Astorga, | Contusion of foot | | 2012 | Encounter | MED CTR XRAY [address] | MD [address] | including toes | | | | [place] | [place], [place] | | | | | [place] [address] | [address] | | | | | [phone] | | | +--------+ + + + [...] [place] | | | | | | [address] | | | | | | | | +--------+---------+ + + + | 11/24/ | Office | Cardiology | [place], | | | 2019 | Visit | | SINDHU rEickson [address] | | | | | | [place], | | | | | | [place] [address] | | | | | | [phone] | | | | | | | [...] Performed At | + + + | [facility] Diagnostic Imaging | [place] | | Department [address] [facility] | [facility] | | [ rep ct [address]] [ rep [facility] | | [facility]] Signed | - IMAGING | | | | | Patient Name: JAYDN SCHMITZ | | | Physician: FRANCA : 1965 Age: 47 Sex: F Unit | | | #: [id number] Exam Date: 01/07/13 Location: | | | [facility] Report #: [id number] Page: | | | %(RAD)RES..mtdd.print.filter("pg") of %(RAD) | | | RES..mtdd.print.filter("tpg") | | | | | | Accession Number: [id number] | | | LEFT FOOT, 01/07/2013 CLINICAL [...] Transcribed | | | Date/Time: 01/07/2013 15:01 Cell Builder: | | | <<Signature on File>> | | | Kobe | | | MD Tor01/07/13 1702 <Electronically signed by Kobe Lentz MD> | | | Kobe Lentz MD 01/07/13 1430 Cell Builder: [employer] | | | Dogrhvgvivmbm21/14/13 1501 eLncho Astorga MD | | + + + + + + + + | Performing | Address | City/State/Zipcode | Phone Number | | Organization | | | | + + + + + | [facility] | [address] | [place] | [phone] | | [facility] | | [address] | | | - IMAGING | | | | + + + + + documented in this encounter Visit Diagnoses + + | Diagnosis | + + | Contusion of foot including toes Contusion of foot | + + documented in this encounter
--- OUTSIDE RECORDS SUMMARY | ~2019-01-15 | XMS | Encounter Summary ---
Demographics + + + | Address | [address] | | | [place] [address] | + + + | Home Phone [...] Team Providers + +------+ + | Care Sheet Metal Engineer Name | Role | Phone | + +------+ + | Juan Cherry DO | PCP | | + +------+ + Encounter Details +--------+ + + + + | Date | Type | Department | Care Team | Description | +--------+ + + + + | 02/22/ | Hospital | [facility] | Ozzie Hayes | | | 2011 | Encounter | MED CTR EMERGENCY | MD Ran [address] | | | | | [place] [address] | [address] [facility] | | | | | [place], [place] | [place] [address] | | | | | [address] | [phone] | | | | | [phone] | | | +--------+ + + + [...] | | | | | | [place] [address] | | | | | | [phone] | | | | | | | [...] Performed At | + + + | [facility] | [place] | | Department [address] [place] [address] | [facility] | | [ rep ct street1+2] [ rep ct [facility] | | st zip] Signed | - IMAGING | | | | | Patient Name: THEOPANFILOJADYN W | | | Physician: CHEVY : 1965 Age: 47 Sex: F Unit | | | #: [id number] Exam Date: 02/23/12 Location: | | | ER Report #: [id number] Page: | | | %(RAD)RES..mtdd.print.filter("pg") of %(RAD) | | | RES..mtdd.print.filter("tpg") | | | | | | Accession Number: [id number] | | | ENHANCED CT ABDOMEN AND [...] ER staff by the | | | [facility] radiologist on 02/23/2012 at 0741 hours. | | | Dictated Date/Time: 02/23/2012 12:00 Transcribed Date/Time: | | | 02/23/2012 12:15 [employer]: | | | <<Signature on File>> | | | Aditya Alonso | | | MD Claudio02/23/12 5904 <Electronically signed by Aditya Snyder MD> | | | Aditya Snyder MD 02/23/12 1200 Electric Meter [employer]ester [employer]: | | | This Week [facility] Qrpumwfxbdvbd77/30/12 1215 Ozzie Hayes MD | | | | | + + + + + + + + | Performing | Address | City/State/Zipcode | Phone Number | | Organization | | | | + + + + + | [facility] | [address] | [place] | [phone] | | [facility] | | [address] | | | - IMAGING | | [...] - 1.030 | [facility] | | | [place] | | | [facility] | | [...] + | [facility] | [address] | [place] | [phone] | | [facility] | | [address] | | | - LABORATORY | | | | + + + + + | [facility] | [address] | [place] | | | [facility] | | [address] | | | - LABORATORY | | [...] + | [facility] | [address] | [place] | [phone] | | [facility] | | [address] | | | - LABORATORY | | | | + + + + + | [facility] | [address] | [place], [place] | | | [facility] | | [address] | | | - LABORATORY | | [...] | | | | | | [facility] | | | | | | MEDICAL [...] + | [facility] | [address] | [place], [place] | [phone] | | [facility] | | [address] | | | - LABORATORY | | | | + + + + + | [facility] | [address] | [place], [place] | | | [facility] | | [address] | | | - LABORATORY | | [...] + | [facility] | [address] | [place] | [phone] | | [facility] | | [address] | | | - LABORATORY | | | | + + + + + | [facility] | [address] | [place], [place] | | | [facility] | | [address] | | | - LABORATORY | | [...] + | [facility] | [address] | [place], [place] | [phone] | | [facility] | | [address] | | | - LABORATORY | | | | + + + + + | [facility] | [address] | [place], [place] | | | [facility] | | [address] | | | - LABORATORY | | | | + + + + + documented in this encounter Visit Diagnoses Not on filedocumented in this encounter
--- OUTSIDE RECORDS SUMMARY | ~2019-01-15 | XMS | Encounter Summary ---
Demographics + + + | Address | [address] | | | [place] [address] | + + + | Home Phone | | + + + | Preferred Language | Unknown | + + + | Marital Status | Single | + + + | Sabianism Affiliation | 1041 | + + + | Race | Unknown | + + + | Ethnic Group | Unknown | + + + Author + + + | Author | [facility] | | | and [place] | + + + | Organization | [facility] | | | [...] Providers + +------+ + | Care Guest Experience Representative Name | Role | Phone | + +------+ + | Juan Cherry DO | PCP | | + +------+ + Encounter Details +--------+ + + + + | Date | Type | Department | Care Team | Description | +--------+ + + + + | 08/20/ | Abstract | [facility] [place] | Jared Mcdonough, | | | 2013 | | CARDIOLOGY [address] | MD [address] | | | | | [address] [place], | [place], | | | | | [place] [address] | [place] [address] | | | | | [phone] | [phone] | | | | | | | [...] [place] | | | | | | [address] | | | | | | | | +--------+---------+ + + + | 11/24/ | Office | Cardiology | [place], | | | 2019 | Visit | | SINDHU Erickson [address] | | | | | | [place], | | | | | | [place] [address] | | | | | | [phone] | | | | | | | | +--------+---------+ + + + documented as of this encounter Procedures + +--------+ + + + | Procedure Name | Priori | Date/Time | Associated Diagnosis | Comments | | | ty | | | | + +--------+ + + + | EXTERNAL LAB: KELSEY | Routin | 07/28/2013 | | Results for this | | | e | | | procedure are in the | | | | | | results section. | + +--------+ + + + | T4, FREE | Routin | 07/28/2013 | | Results for this | | | e | | | procedure are in the | | | | | | results section. | + +--------+ + + + | CBC WITH | Routin | 05/20/2013 | | Results for this | | DIFFERENTIAL | e | | | procedure are in the | | | | | | results section. | + +--------+ + + + | COMPREHENSIVE | Routin | 05/20/2013 | | Results for this | | METABOLIC PANEL | e | | | procedure are in the | | | | | | results section. | + +--------+ + + + | EXTERNAL LAB: CBC | Routin | 05/10/2013 | | Results for this | | | e | | | procedure are in the | | | | | | results section. | + +--------+ + + + | EXTERNAL LAB: AST | Routin | 05/10/2013 | | Results for this | | | e | | | procedure are in the | | | | | | results section. | + +--------+ + + + | EXTERNAL LAB: ALT | Routin | 05/10/2013 | | Results for this | | | e | | | procedure are in the | | | | | | results section. | + +--------+ + + + | EXTERNAL LAB: CALDERON | Routin | 05/10/2013 | | Results for this | | | e | | | procedure are in the | | | | | | results section. | + +--------+ + + + | EXTERNAL LAB: | Routin | 05/10/2013 | | Results for this | | CREATININE | e | | | procedure are in the | | | | | | results section. | + +--------+ + + + documented in this encounter Results T4, Free (07/28/2013) + +-------+ + + + | Component | Value | Ref Range | Performed | Pathologist | | | | | At | Signature | + +-------+ + + + | Free T4 | 8.8 | 6.1 - 12.2 | [facility] | | | | | ng/dL | [facility] | | | | [...] + | [facility] | [address] | [place], [place] | [phone] | | [facility] | | [address] | | | - LABORATORY | | | | + + + + + | [facility] | [address] | [place], [place] | | | [facility] | | [address] | | | - LABORATORY | | | | + + + + + External Lab: TSH (07/28/2013) + +-------+ + + + | Component | Value | Ref Range | Performed | Pathologist | | | | | At | Signature | + +-------+ + + + | TSH, | 0.920 | | EXTERNAL | | | External | | | LAB | | + +-------+ + + + + + | Specimen | + + | Blood specimen | | (specimen) | + + + + | Resulting Agency Comment | + + | [facility] | + + + +---------+ + + | Performing | Address | City/State/Zipcode | Phone Number | | Organization | | | | + +---------+ + + | EXTERNAL LAB | | | | + +---------+ + + CBC with Differential (05/20/2013) + + + + + + | Component | Value | Ref Range | Performed | Pathologist | | | | | At | Signature | + + + + + + | MCV | 87.9 | 82.0 - 100.0 fL | | | + + + + + + | RBC | 4.92 | 4.20 - 5.40 | | | | | | 10*6/uL | | | + + + + + + | MCH | 29.6 | 26.0 - 33.0 pg | | | + + + + + + | RDW-CV | 13.4 | 11.6 - 16.0 % | | | + + + + + + | MPV | 7.0 | 0.0 - 12.0 fL | | | + + + + + + | MCHC | 33.7 | 31.0 - 36.0 % | | | + + + + + + | Absolute | 4.60 | 1.60 - 7.60 | | | | Neutrophils | | 10*3/uL | | | + + + + + + | Absolute | 4.70 (A) | 0.60 - 3.40 | | | | Lymphocytes | | 10*3/uL | | | + + + + + + | Absolute | 0.90 | 0.00 - 0.90 | | | | Monocytes | | 10*3/uL | | | + + + + + + | Absolute | 0.60 | 0.00 - 0.70 | | | | Eosinophils | | 10*3/uL | | | + + + + + + | Absolute | 0.10 | 0.00 - 0.20 | | | | Basophils | | 10*3/uL | | | + + + + + + | % Segmented | 42.8 | 37.0 - 80.0 % | | | | | | | | | | Neutrophils | | | | | + + + + + + | % Monocytes | 8.4 | 0.0 - 12.0 % | | | + + + + + + | % | 5.1 | 0.0 - 7.0 % | | | | Eosinophils | | | | | + + + + + + | % Basophils | 0.6 | 0.0 - 2.5 % | | | + + + + + + + + | Specimen | + + | Blood specimen | | (specimen) | + + Comprehensive Metabolic Panel (05/20/2013) + +---------+ + + + | Component | Value | Ref Range | Performed | Pathologist | | | | | At | Signature | + +---------+ + + + | Na | 138 | 135 - 145 | [facility] | | | | | mmol/L | [facility] | | | | | [facility] | | | | | | C[facility] - | | | | | | LABORATORY | | + +---------+ + + + | K | 4.0 | 3.6 - 5.0 | [facility] | | | | | mmol/L | [facility] | | | | | | [facility] | | | | | | CENTER - | | | | | | LABORATORY | | + +---------+ + + + | Cl | 105 | 98 - 107 mmol/L | [facility] | | | | | | [facility] | | | | | | [facility] | | | | | | CENTER - | | | | | | LABORATORY | | + +---------+ + + + | CO2 | 23 | 21 - 31 mmol/L | [facility] | | | | | | [facility] | | | | | | [facility] | | | | | | CENTER - | | | | | | LABORATORY | | + +---------+ + + + | Anion Gap | 10 | 3 - 12 mmol/L | [facility] | | | | | | [facility] | | | | | | [facility] | | | | | | CENTER - | | | | | | LABORATORY | | + +---------+ + + + | Glucose | 106 (A) | 70 - 100 mg/dL | [facility] | | | | | | [facility] | | | | | | [facility]ICAL | | | | | | CENTER - | | | | | | LABORATORY | | + +---------+ + + + | Calcium | 8.6 | 8.4 - 10.5 | [facility] | | | | | mg/dL | [facility] | | | | | | MEDICAL | | | | | | CENTER - | | | | | | LABORATORY | | + +---------+ + + + | BUN | 8 | 7 - 18 mg/dL | [facility] | | | | | | [facility] | | | | | | MEDICAL | | | | | | CENTER - | | | | | | LABORATORY | | + +---------+ + + + | BUN/Creatin | 9.8 | | [facility] | | | ine Ratio | | | [facility] | | | | | | MEDICAL | | | | | | CENTER - | | | | | | LABORATORY | | + +---------+ + + + | Total | 6.2 | 6.0 - 8.1 g/dL | [facility] | | | Protein | | | [facility] | | | | | | MEDICAL | | | | | | CENTER - | | | | | | LABORATORY | | + +---------+ + + + | Albumin | 3.7 | 3.5 - 5.0 g/dL | [facility] | | | | | | [facility] | | | | | | MEDICAL | | | | | | CENTER - | | | | | | LABORATORY | | + +---------+ + + + | Alkaline | 80 | 32 - 92 U/L | [facility] | | | Phosphatase | | | [facility] | | | | | | MEDICAL | | | | | | CENTER - | | | | | | LABORATORY | | + +---------+ + + + | Bilirubin | 0.6 | 0.2 - 1.2 mg/dL | [facility] | | | Total [...] | + + + + + | [facility] | [address] | [place] | | | [facility] | | [address] | | | - LABORATORY | | | | + + + + + External Lab: CBC (05/10/2013) + +-------+ + + + | Component | Value | Ref Range | Performed | Pathologist | | | | | At | Signature | + +-------+ + + + | WBC, | 10.8 | | EXTERNAL | | | External | | | LAB | | + +-------+ + + + | HGB, | 14.5 | | EXTERNAL | | | External | | | LAB | | + +-------+ + + + | HCT, | 43.2 | | EXTERNAL | | | External | | | LAB | | + +-------+ + + + | PLT, | 299 | | EXTERNAL | | | External | | | LAB | | + +-------+ + + + + + | Resulting Agency Comment | + + | [facility] | + + + +---------+ + + | Performing | Address | City/State/Zipcode | Phone Number | | Organization | | | | + +---------+ + + | EXTERNAL LAB | | | | + +---------+ + + External Lab: AST (05/10/2013) + +-------+ + + + | Component | Value | Ref Range | Performed | Pathologist | | | | | At | Signature | + +-------+ + + + | AST, | 27 | | EXTERNAL | | | External | | | LAB | | + +-------+ + + + + + | Specimen | + + | Blood specimen | | (specimen) | + + + + | Resulting Agency Comment | + + | [facility] | + + + +---------+ + + | Performing | Address | City/State/Zipcode | Phone Number | | Organization | | | | + +---------+ + + | EXTERNAL LAB | | | | + +---------+ + + External Lab: ALT (05/10/2013) + +-------+ + + + | Component | Value | Ref Range | Performed | Pathologist | | | | | At | Signature | + +-------+ + + + | ALT, | 21 | | EXTERNAL | | | External | | | LAB | | + +-------+ + + + + + | Specimen | + + | Blood specimen | | (specimen) | + + + + | Resulting Agency Comment | + + | [facility] | + + + +---------+ + + | Performing | Address | City/State/Zipcode | Phone Number | | Organization | | | | + +---------+ + + | EXTERNAL LAB | | | | + +---------+ + + External Lab: eGFR (05/10/2013) + +-------+ + + + | Component | Value | Ref Range | Performed | Pathologist | | | | | At | Signature | + +-------+ + + + | eGFR, | 60 | | EXTERNAL | | | External | | | LAB | | + +-------+ + + + | eGFR, | | | EXTERNAL | | | | | | LAB | | | Liberian, | | | | | | External | | | | | + +-------+ + + + + + | Specimen | + + | Blood specimen | | (specimen) | + + + + | Resulting Agency Comment | + + | [facility] | + + + +---------+ + + | Performing | Address | City/State/Zipcode | Phone Number | | Organization | | | | + +---------+ + + | EXTERNAL LAB | | | | + +---------+ + + External Lab: Creatinine (05/10/2013) + +-------+ + + + | Component | Value | Ref Range | Performed | Pathologist | | | | | At | Signature | + +-------+ + + + | Creatinine, | 0.8 | | EXTERNAL | | | External | | | LAB | | + +-------+ + + + + + | Specimen | + + | Blood specimen | | (specimen) | + + + + | Resulting Agency Comment | + + | [facility] | + + + +---------+ + + | Performing | Address | City/State/Zipcode | Phone Number | | Organization | | | | + +---------+ + + | EXTERNAL LAB | | | | + +---------+ + + documented in this encounter Visit Diagnoses Not on filedocumented in this encounter"
--- OUTSIDE RECORDS SUMMARY | ~2019-01-15 | XMS | Encounter Summary ---
Demographics + + + | Address | [address] | | | [place] [address] | + + + | Home Phone [...] Providers + +------+ + | Care Community Coordinator For High School Name | Role | Phone | + +------+ + PCP | Unavailable | + +------+ + Encounter Details +--------+ + + + + | Date | Type | Department | Care Team | Description | +--------+ + + + + | 10/15/ | Hospital | [facility] | Berna Vizcaino MD | Dizziness; | | 2010 | Encounter | CONVERSION DEP [address] | [address] | [place]; | | | | [address] | [place] [address] | [place] | | | | [place], [place] | [phone] | | | | | [address] | | | | | | [phone] | | | +--------+ + + + [...] [place] | | | | | | [address] | | | | | | | | +--------+---------+ + + + | 11/24/ | Office | Cardiology | [place], | | | 2019 | Visit | | SINDHU Erickson [address] | | | | | | [place], | | | | | | [place] [address] | | | | | | [phone] | | | | | | | [...] EXTERNAL LAB | | Testing performed at [facility] [place];[address] [place] [address];[place] [address] APPEARANCE | | | CLEAR Testing performed at | | | [facility] [place];[address] [place] [address];[place] [address] Tube Number, CSF | | | 1 Testing performed at [facility] [place];[facility] | | | Blvd;[place] [address] CSF RBC | | | 0 Testing performed at [facility] [place];[address] [place] [address];[place], [place] | | | [address] CSF WBC 0 | | | Testing performed at [facility] [place];[address] [place] [address];[place] [address] | | + + + + +---------+ [...] Performed At | + + + | [facility] [address] Ph: | | | Patient Name: JADYN SCHMITZ Date of : | | | 1965 Medical Record: [id number] Account: [id number] | | | Exam Date/Time: 10/15/2010 10:15 [...] this patient in 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 The patient was awake, | [...] EXTERNAL LAB | | Testing performed at [facility] [place];[address] [place] [address];[place] [address] VIRAL | | | CULTURE ACCESSION NO. | | | [id number] SPECIMEN SOURCE | | | CEREBROSPINAL FLUID RESULT | | | PRELIMINARY: NO VIRUS ISOLATED AT 7 | | | DAYS. | | | FINAL: NO VIRUS ISOLATED AT 14 DAYS. Testing performed at | | | [address] [address] VIRAL CULTURE,STATUS | | | REPORT STATUS FINAL | | | 10/30/2010 Testing performed at [address] | | | [address] | | + + + + +---------+ [...] | Testing performed at | | | [facility] [place];[address] [facility];[place] [address] GRAM STAIN | | | NO CELLS OR ORGANISMS SEEN | | | Testing performed at [facility], [address] [place] [address] | | | [place] [address] CULTURE | | | NO GROWTH 3 DAYS | | | Testing performed at [facility], [address] [place] [address], [place], | | | [place] [address] REPORT STATUS 10/18/2010 | | | FINAL [...] | EXTERNAL LAB | | performed at [facility] [place];[address] [place] [address];[place] [address] | | + + + + +---------+ [...] EXTERNAL LAB | | Testing performed at [facility] [place];[address] [place] [address];[place] [address] | | + + + + +---------+ [...]
--- OUTSIDE RECORDS SUMMARY | ~2019-01-15 | XMS | Encounter Summary ---
Demographics + + + | Address | [address] | | | [place] [address] | + + + | Home Phone [...] Providers + +------+ + | Care Sales Process Manager Name | Role | Phone | [...] Description | +--------+--------+ + + + | 01/27/ | Refill | [facility] [place] | Kevin Sandoval, | Medication Refill | | 2013 | | PULMONARY [address] | MD [address] | | | | | [place], | [place] | | | | | [place] [address] | [address] | | | | | [phone] | | | +--------+--------+ + + + [...] [place] | | | | | | [address] | | | | | | | | +--------+---------+ + + + | 11/24/ | Office | Cardiology | [place], | | | 2019 | Visit | | SINDHU Erickson [address] | | | | | | [place] | | | | | | [place] [address] | | | | | | [phone] | | | | | | | | +--------+---------+ + + + documented as of this encounter Visit Diagnoses Not on filedocumented in this encounter"
--- OUTSIDE RECORDS SUMMARY | ~2019-01-15 | XMS | Encounter Summary ---
Demographics + + + | Address | [address] | | | [place] [address] | + + + | Home Phone [...] Team Providers + +------+ + | Care Icebox Man Name | Role | Phone | [...] RN | | | | | [place] [place] | | | | | | [place] | | | | | | [address] | | | | | | [phone] | | | +--------+ + + + [...] [place] | | | | | | [address] | | | | | | | | +--------+---------+ + + + | 11/24/ | Office | Cardiology | [place], | | | 2020 | Visit | | SINDHU Erickson [address] | | | | | | [place], | | | | | | [place] [address] | | | | | | [phone] | | | | | | | | +--------+---------+ + + + documented as of this encounter Visit Diagnoses Not on filedocumented in this encounter"
--- OUTSIDE RECORDS SUMMARY | ~2019-01-15 | XMS | Encounter Summary ---
Demographics + + + | Address | [address] | | | [place] [address] | + + + | Home Phone [...] + +------+ + | Care Surgical Garment Assembler Name | Role | Phone | [...] + | 08/15/ | Telephone | [facility] | Jared Mcdonough, | Other (new issues) | | 2014 | | CARDIOLOGY [address] | [address] | | | | | [place], | [place], | | | | | [place] [address] | [place] [address] | | | | | [phone] | [phone] | | | | | | | [...] | | | | | | [place] [address] | | | | | | [phone] | | | | | | | | +--------+---------+ + + + documented as of this encounter Visit Diagnoses Not on filedocumented in this encounter"
--- OUTSIDE RECORDS SUMMARY | ~2019-01-15 | XMS | Encounter Summary ---
Demographics + + + | Address | [address] | | | [place] [address] | + + + | Home Phone [...] Team Providers + +------+ + | Care Land Reclamation Specialist Name | Role | Phone | + +------+ + PCP | Unavailable | + +------+ + Encounter Details +--------+ + + + + | Date | Type | Department | Care Team | Description | +--------+ + + + + | 01/24/ | [facility] | [facility] | | | | 2008 - | Encounter | MED CTR OP REHAB | | | | | | [address] [place] | | | | 02/23/ | | [place] [address] | | | | 2008 | | [phone] | | | +--------+ + + + [...] [place] | | | | | | [address] | | | | | | | | +--------+---------+ + + + | 11/24/ | Office | Cardiology | [place], | | | 2020 | Visit | | SINDHU Erickson [address] | | | | | | [place], | | | | | | [place] [address] | | | | | | [phone] | | | | | | | | +--------+---------+ + + + documented as of this encounter Visit Diagnoses Not on filedocumented in this encounter"
--- OUTSIDE RECORDS SUMMARY | ~2019-01-15 | XMS | Encounter Summary ---
Demographics + + + | Address | [address] | | | [place] [address] | + + + | Home Phone [...] Team Providers + +------+ + | Care Telephone Clerk Telegraph Office Name | Role | Phone | + +------+ + | Yong Cherry DO | PCP | | + +------+ + Encounter Details +--------+ + + + + | Date | Type | Department | Care Team | Description | +--------+ + + + + | 09/01/ | Emergency | [facility] | Heriberto, | Procedure and | | 2017 | | [facility] | Ozzy Kim MD [address] | treatment not | | | | CENTER [address] | [address] [place] | carried out due to | | | | [place] | [place] [address] | patient leaving | | | | [address] | [phone] | prior to being seen | | | | [phone] | | by health care | | | | | No, Physician | provider (Primary | | | | | | Dx) | +--------+ + + [...] | 2020 | Visit | | [address] | | | | | | [place] | | | | | | [address] | | | | | | | | +--------+---------+ + + + | 11/24/ | Office | Cardiology | [place], | | | 2019 | Visit | | SINDHU Erickson [address] | | | | | | [place], | | | | | | [place] [address] | | | | | | [phone] | | | | | | | | +--------+---------+ + + + + +------+--------+ + + | Name | Type | Priori | Associated Diagnoses | Date/Time | | | | ty | | | + +------+--------+ + + | ED INFORMATION | BALWINDER | Routin | | 09/01/2017 12:56 PM | | EXCHANGE | | e | | PDT | + +------+--------+ + + documented as of this encounter Procedures + +--------+ + + + | Procedure Name | Priori | Date/Time | Associated Diagnosis | Comments | | | ty | | | | + +--------+ + + + | ED INFORMATION | Routin | 09/01/2017 | | | | EXCHANGE | e | 12:56 PM | | | | | | PDT | | | + +--------+ + + + +---+--------+ | | | | | Proced | | | ure | | | Note - | | | Vic, | | | Lab In | | | | | | Hlseve | | | n - | | | | | | 2017 | | | 12:57 | | | PM PDT | | | | | | [...] | | | ON?07/ | | | 09/201 | | | 8 | | | 12:53? | | | HODGEN | | | , | | | GRETCH | | | EN | | | W?MRN: | | | | | | [id number] | | | [id number] | | | his | | | [...] | | int | | | Mansoor 9, | | [...] | | remove | | | d Mansoor | | | 7, | | | 2018 | | [...] | | +---+--------+ documented in this encounter Visit Diagnoses + + | Diagnosis | + + | Procedure and treatment not carried out due to patient leaving prior to being seen by | | health care provider - Primary | + + documented in this encounter"
--- OUTSIDE RECORDS SUMMARY | ~2019-01-15 | XMS | Encounter Summary ---
Demographics + + + | Address | [address] | | | [place] [address] | + + + | Home Phone [...] Team Providers + +------+ + | Care Deburring And Tooling Machine Operator Name | Role | Phone [...] | | | | CLINIC [address] | [address] [place] | Dx) | | | | [place] | [place] [address] | | | | | [address] | [phone] | | | | | [phone] | | | +--------+ + + + [...] [place] | | | | | | [address] | | | | | | | | +--------+---------+ + + + | 11/24/ | Office | Cardiology | [place], | | | 2019 | Visit | | SINDHU Erickson [address] | | | | | | [place], | | | | | | [place] [address] | | | | | | [phone] | | | | | | | [...] + | [facility] | [address] | [place] | [phone] | | [facility] | | [address] | | | - LABORATORY | | [...] ST. | [address] | [place] | [phone] | | [facility] | | [address] | | | - LABORATORY | | [...] [address] | [place] | [phone] | | [facility] | | [address] | | | - LABORATORY | | [...] ST. | [address] | [place] | [phone] | | [facility] | | [address] | | | - LABORATORY | | [...] | 0.84 | 0.60 - 1.30 | [facility] | | | | | mg/dL | [facility] | | | | | | MEDICAL | | | | | | CENTER - | | | | | | LABORATORY | | + + + + + + | eGFR if not | >60Comment: GLOMERULAR | >=60 | [place] | | | | FILTRATION | mL/min/1.73m2 | [facility] | | | [facility] | RATE,ESTIMATED | | MEDICAL | | | | mL/min/1.68a4Myva than | | CENTER - | | [...] [address] | [place] | [phone] | | [facility] | | [address] | | | - LABORATORY | | | | + + + + + documented in this encounter Visit Diagnoses + + | Diagnosis | + + | Preoperative clearance - Primary Preoperative examination, unspecified | + + documented in this encounter"
--- OUTSIDE RECORDS SUMMARY | ~2019-01-15 | XMS | Encounter Summary ---
Demographics + + + | Address | [address] | | | [place] [address] | + + + | Home Phone [...] Providers + +------+ + | Care Care Assistant Name | Role | Phone | [...] | | | | | [address] [place] | | | | | | [place] [address] | | | | | | [phone] | | | +--------+ + + + [...] Weber, PT - 02/25/2014 10:43 [facility] [address] [place] [address] Physical Therapy Discharge Note Date: 02/25/2014 Patient [...] [place] | | | | | | [id number] | | | | | | | | +--------+---------+ + + + | 11/24/ | Office | Cardiology | [place], | | | 2019 | Visit | | SINDHU Erickson [address] | | | | | | [place], | | | | | | [place] [address] | | | | | | [phone] | | | | | | | | +--------+---------+ + + + documented as of this encounter Visit Diagnoses Not on filedocumented in this encounter"
--- OUTSIDE RECORDS SUMMARY | ~2019-01-15 | XMS | Encounter Summary ---
Demographics + + + | Address | [address] | | | [place] [address] | + + + | Home Phone [...] Providers + +------+ + | Care Senior Electrical Estimator Name | Role | Phone | + [...] Description | +--------+--------+ + + + | 03/13/ | Refill | [facility] | [place], | Medication Refill | | 2018 | | CARDIOLOGY [address] | SINDHU Erickson [address] | | | | | [place], | [place], | | | | | [place] [address] | [place] [address] | | | | | [phone] | [phone] | | | | | | | [...] | | | | | | [place] [address] | | | | | | [phone] | | | | | | | | +--------+---------+ + + + documented as of this encounter Visit Diagnoses Not on filedocumented in this encounter"
--- OUTSIDE RECORDS SUMMARY | ~2019-01-15 | XMS | Encounter Summary ---
Demographics + + + | Address | [address] | | | [place] [address] | + + + | Home Phone [...] Team Providers + +------+ + | Care Cogeneration Operator Name | Role | Phone | [...] Description | +--------+---------+ + + + | 11/06/ | Office | [facility] [place] | [place], | Palpitations | | 2017 | Visit | CARDIOLOGY [address] | SINDHU Erickson [address] | (Primary Dx); | | | | [place], | [place], | Paroxysmal atrial | | | | [place] [address] | [place] [address] | tachycardia (HCC); | | | | [phone] | [phone] | Chest pain, | | | | | | unspecified type; | | | | | | Syncope, unspecified | | | | | | syncope type; | | | | | | Chronic [...] + | Blood Pressure | 98/60 | 11/06/2016 2:13 PM | | | | | PDT | | + + + + + | Pulse | 88 | 11/06/2016 2:13 PM | | | | | PDT | | + + + + + | Temperature | - | - | | + + + + + | Respiratory Rate | 18 | 11/06/2016 2:13 PM | | | | | PDT | | + + + + + | Oxygen Saturation | - | - | | + + + + + | Inhaled Oxygen | - | - | | | Concentration | | | | + + + + + | Weight | 77.1 kg (170 lb) | 11/06/2016 2:13 PM | | | | | PDT | | + + + + + | Height | 157.5 cm (5' 2") | 11/06/2016 2:13 PM | | | | | PDT | | + + + + + | Body Mass Index | 31.09 | 11/06/2016 2:13 PM | | | | | PDT [...] documented as of this encounter Progress Notes Adrienne TannerelySINDHU reynoso - 11/06/2016 2:15 PM PDTFormatting of this note might be differen t from the original. PATIENT NAME: Rosario Malik : 1965: AGE: 51 y.o. PRIMARY CARE: Juan Cherry DO OUTPATIENT FOLLOW UP VISIT Date of Service: 11/06/2016 HISTORY OF PRESENT ILLNESS: Rosario Malik is a 51 y.o. female with a history of non-cardiac chest pain, inapprop riate atrial tachycardia, paroxysmal atrial tachycardia with palpitations, emphysema, hypoth yroidism obstructive sleep apnea and nocturnal hypoxemia and bipolar disorder. She is being seen today for follow up tachycardia and PAT. She was last seen 10/16/16 at which time she was to check 48 hour Holter monitor and follow- up in 2-4 weeks. Since that time, she has continued feeling "okay". She does feeling someti mes that her heart goes fast but it is less than before. She does not feels any increase in lightheadedness or dizziness, or increase in shortness of breath. She denies any chest pain, or pressure. She is trying to remain physically active. Continues with oxygen. MEDICAL, SURGICAL, AND PERSONAL HISTORY Past Medical, [...] every morning (before break fast). 30 tablet 2 predniSONE (DELTASONE) 10 mg tablet Take 10 mg by mouth Daily. propranolol (INDERAL) 10 mg tablet Take 10 mg by mouth 2 times daily. She takes this da rigoberto Respiratory Therapy Supplies [facility] [place] Please provide patient with necessary CPAP supplies ( she did not specify, okay to send order as appropriate) Diagnosis Code(s)327.23 . Length of Need 99 months. Please send order to [facility]. 1 each 0 Respiratory Therapy Supplies [facility] [...] ROS Review of Systems Constitutional: Positive for malaise/fatigue (a little fatgue). Negative for diaphoresis. Respiratory: Positive for cough, shortness of breath and wheezing. Cardiovascular: Negative for chest pain, palpitations, orthopnea, claudication and leg swel ling. Gastrointestinal: Negative for abdominal pain, blood in stool, heartburn, nausea and vomiti ng. Musculoskeletal: Positive for back pain and myalgias. Negative for neck pain. Neurological: Positive for dizziness, tingling (toe Right foot ) and headaches. Negative fo r tremors and weakness. Endo/Heme/Allergies: Bruises/bleeds easily. OBJECTIVE: PHYSICAL EXAM BP 98/60 | Pulse 88 | Resp 18 | Ht 1.575 m (5' 2") | Wt 77.1 kg (170 lb) | BMI 31.09 k g/m Physical Exam Constitutional: She appears well-developed and [...] orders placed or performed in visit on 10/16/16 ECG 12 lead Result Value Ref Range INTERPRETATION TEXT Sinus bradycardia Low voltage QRS Borderline ECG When compared with ECG of 04-AUG-2015 11:21, Vent. rate has decreased BY 25 BPM QT has shortened Confirmed by CLAY SANCHEZ MD ([id number]) on 10/16/2016 4:31:30 PM LAB RESULTS reviewed during visit today primarily from [facility]: LIPID Lab Results Component Value [...] PLTEX 370 07/11/2014 I reviewed records from [facility] for Holter report on 10/18/2016 which is summarized in the HPI. Holter Monitor 10/16/16 shows The predominant rhythm is sinus with HR between 44 to 157 bpm . The average HR was 72 bpm during the 47:43 hour recording,There were occasional PVC's (10 55 total, mean 22.1/hr) with 10 couplets and no triplets,There were occasional PAC's (1807 total, mean 37.8/hr), There were 842 episodes of sinus bradycardia. The longest was 1183 be ats on 02:44. The minimum rate was 41 bpm on 05:58,There were 78 episodes of sinus tachycardia. The longest was 289 beats on 18:15. The maximum rate was 1 63 bpm on 18:29,Diary was not returned and no symptoms reported. Above data and testing is reviewed this [...] She was seen at the ED of [facility] 3 weeks ago and again 1 [...] She is in a class II of [place] [employer] functional class. There is no [...] and v entricular function done at the [facility]. LVEF 78%. C. Holter Monitor 08/16/13 [...] symptoms r eported. G. She has been asymptomatic. She has noticed in her oximetry that her readings are going up and down getting as low as in the very low 40s and as high as 140-160 bpm. No syncope. She tries to continues to be active. 2. Emphysema/COPD: A. She is on oxygen. She will start going back to pulmonary rehab ilitation 3. Hypothyroidism 4. Obstructive sleep apnea and nocturnal hypoxemia A. She is utilizing BiPAP with no oxygen PLAN: 1. Results of Holter were discussed with patient, and answers were given. 2. The current medical regimen is effective; continue present plan and medications. 3. She will follow up in 6 months, or sooner with concerns. Portions of this chart may have been created with [employer] voice recognition software. Occasi onal wrong-word or [...] | | | | [place] | | | | | | [address] | | | | | | | | +--------+---------+ + + + | 11/24/ | Office | Cardiology | [place], | | | 2019 | Visit | | SINDHU Erickson [address] | | | | | | [place], | | | | | | [place] [address] | | | | | | [phone] | | | | | | | | +--------+---------+ + + + documented as of this encounter Visit Diagnoses + + | Diagnosis | + + | Palpitations - Primary | + + | Paroxysmal atrial tachycardia (HCC) Paroxysmal supraventricular tachycardia | + + | Chest pain, unspecified type | + + | Syncope, unspecified syncope type | + + | Chronic obstructive pulmonary disease, unspecified COPD type (HCC) | + + documented in this encounter
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
--- OUTSIDE RECORDS SUMMARY | ~2019-01-15 | XMS | Encounter Summary ---
Demographics + + + | Address | [address] | | | [place] [address] | + + + | Home Phone [...] Team Providers + +------+ + | Care Bench Molder Name | Role | Phone | [...] | [facility] | Weber, Andriy | Other | | 2018 | | [address] | MD Robert [address] | | | | | [place] | THOM [facility] | | | | | [address] | [place] [address] | | | | | [phone] | [phone] | | | | | | | [...] [place] | | | | | | [address] | | | | | | | | +--------+---------+ + + + | 11/24/ | Office | Cardiology | [place], | | | 2019 | Visit | | SINDHU Erickson [address] | | | | | | [place] | | | | | | [place] [address] | | | | | | [phone] | | | | | | | | +--------+---------+ + + + documented as of this encounter Visit Diagnoses Not on filedocumented in this encounter"
--- OUTSIDE RECORDS SUMMARY | ~2019-01-15 | XMS | Encounter Summary ---
Demographics + + + | Address | [address] | | | [place] [address] | + + + | Home Phone [...] Team Providers + +------+ + | Care Cmm Operator Name | Role | Phone | + +------+ + | Juan Cherry DO | PCP | | + +------+ + Encounter Details +--------+ + + + + | Date | Type | Department | Care Team | Description | +--------+ + + + + | 08/06/ | Hospital | [facility] IP | Conversion | Unknown cause of | | 2017 | Encounter | CONVERSION [address] | Transaction, | injury, initial | | | | [address] | Provider Unknown | encounter | | | | [place] | [phone] | | | | | [address] | | | | | | [phone] | | | +--------+ + + + [...] | | | | | order to [facility]. | | | | | + [...] [place] | | | | | | [address] | | | | | | | | +--------+---------+ + + + | 11/24/ | Office | Cardiology | [place], | | | 2019 | Visit | | SINDHU Erickson [address] | | | | | | [place], | | | | | | [place] [address] | | | | | | [phone] | | | | | | | [...] + | Roger Mcbride Maureen - 10/07/2018 6:05 AM PDT This is a non-reportable procedure | | without a radiologist report and isused for image storage only | + + documented in this encounter Visit Diagnoses + + | Diagnosis | + + | Unknown cause of injury, initial encounter | + + documented in this encounter"
--- OUTSIDE RECORDS SUMMARY | ~2019-01-15 | XMS | Encounter Summary ---
Demographics + + + | Address | [address] | | | [place] [address] | + + + | Home Phone [...] Team Providers + +------+ + | Care Laborer Wharf Name | Role | Phone | + +------+ + | Juan Cherry DO | PCP | | + +------+ + Encounter Details +--------+ + + + + | Date | Type | Department | Care Team | Description | +--------+ + + + + | 09/09/ | Hospital | [facility] | Conversion | Pain | | 2015 | Encounter | CONVERSION [address] | Transaction, | | | | | [address] | Provider Unknown | | | | | [place], [place] | [phone] | | | | | [address] | | | | | | [phone] | | | +--------+ + + + [...] | | | send order to [facility] | | | | | | | [facility]. | | | | | [...] | | | | [address] [facility] [place] | | | | | | [address] | | | | | | | | +--------+---------+ + + + | 11/24/ | Office | Cardiology | [place], | | | 2019 | Visit | | SINDHU Erickson [address] | | | | | | [place], | | | | | | [place] [address] | | | | | | [phone] | | | | | | | | +--------+---------+ + + + documented as of this encounter Procedures + +--------+ + + + | Procedure Name | Priori | Date/Time | Associated Diagnosis | Comments | | | ty | | | | + +--------+ + + + | XR CHEST 1 VIEW | Routin | 08/13/2013 | | Results for this | | | e | 1:11 AM | | procedure are in the | | | | PDT | | results section. | + +--------+ + + + documented in this encounter Results XR Chest 1 Vw (08/13/2013 1:11 AM PDT) + + | Specimen [...]
--- OUTSIDE RECORDS SUMMARY | ~2019-01-15 | XMS | Encounter Summary ---
Demographics + + + | Address | [address] | | | [place] [address] | + + + | Home Phone [...] Team Providers + +------+ + | Care Shoe Stainer Name | Role | Phone | + [...] + + | 08/14/ | Emergency | [facility] | Sonny Cesar MD | Sinus tachycardia | | 2018 | | MED CTR EMERGENCY | [address] | (Primary Dx) | | | | CENTER [address] | [place] | | | | | [place] | [address] | | | | | [address] | | | | | | [phone] | | | +--------+ + + + [...] | | | | | | [place] [address] | | | | | | [phone] | | | | | | | [...] [address] | [place] | [phone] | | [facility] | | [address] | | | - LABORATORY | | [...] | | | | | | [employer] | | | | | [...] [address] | [place] | [phone] | | [facility] | | [address] | | | - LABORATORY | | [...] [address] | [place] | [phone] | | [facility] | | [address] | | | - LABORATORY | | [...] (L) | 7 - 18 mg/dL | [facility] | | | | | | [facility] | | | | | | MEDICAL | | | | | | CENTER - | | | | | | LABORATORY | | + + + + + + | Creatinine | 0.84 | 0.60 - 1.30 | [facility] | | | | | mg/dL | [facility] | | | | | | MEDICAL | | | | | | CENTER - | | | | | | LABORATORY | | + + + + + + | eGFR if not | >60Comment: GLOMERULAR | >=60 | [facility] | | | | FILTRATION | mL/min/1.73m2 | [facility] | | | KYRGYZ | RATE,ESTIMATED | | MEDICAL | | | | mL/min/1.03d2Udep than | | CENTER - | | [...] [address] | [place] | [phone] | | [facility] | | [address] | | | - LABORATORY | | [...] [address] | [place] | [phone] | | [facility] | | [address] | | | - LABORATORY | | [...] | | | | RAFA WELLS MD ([id number]) | | | | | | on [...] 3:01 | | | | | ONCE, [facility] 08/14/17 at 1500, For 1 | | [...]
--- OUTSIDE RECORDS SUMMARY | ~2019-01-15 | XMS | Encounter Summary ---
Demographics + + + | Address | [address] | | | [place] [address] | + + + | Home Phone [...] Providers + +------+ + | Care Animal Ride Attendant Name | Role | Phone | [...] Headache | Shashi Witt, | [address] | | | | | Pituitary | MD Need | [place], | | | | | tumor | updated | [place] | | | | | Procedures | address | [address] | | | | | CT Head w wo | | Phone: | | | | | Contrast | | [phone] | | | | | | | Fax: | | | | | | | [phone] | +--------+--------+ + + + + Reason [...] Headache | Shashi Witt, | [address] | | | | | Pituitary | MD Need | [place], | | | | | tumor | updated | [place] | | | | | Procedures | address | [address] | | | | | CT Head w wo | | Phone: | | | | | Contrast | | [phone] | | | | | | | Fax: | | | | | | | [phone] | +--------+--------+ + + + + Encounter Details +--------+ + + + + | Date | Type | Department | Care Team | Description | +--------+ + + + + | 12/17/ | Hospital | [facility] | Shashi Segovia | Headache; | | 2013 | Encounter | MED CTR CT [address] | MD Miryam Need updated | Pituitary tumor | | | | [place], | address | | | | | [place] [address] | | | | | | [phone] | | | +--------+ + + + [...] | | | | | order to [facility]. | | | | | [...] | | | | send order to [facility] | | | | | | | [facility]. | | | | | [...] [place] | | | | | | [address] | | | | | | | | +--------+---------+ + + + | 11/24/ | Office | Cardiology | [place], | | | 2019 | Visit | | SINDHU Erickson [address] | | | | | | [place], | | | | | | [place] [address] | | | | | | [phone] | | | | | | | [...] + | MISCELLANEOUS LAB | | | [phone] | + +---------+ + + | MISCELANIOUS LAB | | | [phone] | + +---------+ + + documented in [...]
--- OUTSIDE RECORDS SUMMARY | ~2019-01-15 | XMS | Encounter Summary ---
Demographics + + + | Address | [address] | | | [place] [address] | + + + | Home Phone [...] Team Providers + +------+ + | Care Benefits Advisor Name | Role | Phone | + +------+ + | Juan Cherry DO | PCP | | + +------+ + Encounter Details +--------+ + + + + | Date | Type | Department | Care Team | Description | +--------+ + + + + | 07/15/ | Hospital | [facility] | Kevin Sandoval, | COPD (chronic | | 2014 | Encounter | MED CTR PULMONARY | MD [address] | obstructive | | | | FUNCTION [address] | [place] | pulmonary disease); | | | | [place], | [address] | Hypoxemia | | | | [place] [address] | | | | | | [phone] | | | +--------+ + + + [...] | | | | | order to [facility]. | | | | | + [...] | | | | | [facility]. | | | | | | | [...] | | | | | | [place] [address] | | | | | | [phone] | | | | | | | [...]
--- OUTSIDE RECORDS SUMMARY | ~2019-01-15 | XMS | Encounter Summary ---
Demographics + + + | Address | [address] | | | [place] [address] | + + + | Home Phone [...] Providers + +------+ + | Care Sales Support Technician Name | Role | Phone | [...] NEPHROLOGY [address] | MD [address] | Dx) | | | | [address] | [address] [place] | | | | | [place], [place] | [place] [address] | | | | | [address] | [phone] | | | | | [phone] | | | +--------+ + + + [...] possible bacterial bronchitis till pt sees her cutter wet machine. Pt was agreeable with plan. documented in [...] [place] | | | | | | [address] | | | | | | | | +--------+---------+ + + + | 11/24/ | Office | Cardiology | [place], | | | 2019 | Visit | | SINDHU Erickson [address] | | | | | | [place], | | | | | | [place] [address] | | | | | | [phone] | | | | | | | | +--------+---------+ + + + documented as of this encounter Visit Diagnoses + + | Diagnosis | + + | Bronchitis - Primary Bronchitis, not specified as acute or chronic | + + documented in this encounter"
--- OUTSIDE RECORDS SUMMARY | ~2019-01-15 | XMS | Encounter Summary ---
Demographics + + + | Address | [address] | | | [place] [address] | + + + | Home Phone [...] Team Providers + +------+ + | Care Ediscovery Project Manager Name | Role | Phone | [...] | | | | CENTER [address] | [address] | of stomach (Primary | | | | [place], [place] | [place], [place] | Dx) | | | | [address] | [address] | | | | | [phone] | | | +--------+ + + + [...] other worsening symptoms. [facility] documented in this encounter Medications at [...] | | | | order to [facility]. | | | | | + [...] | | | send order to [facility] | | | | | | | [facility]. | | | | | [...] [place] | | | | | | [address] | | | | | | | | +--------+---------+ + + + | 11/24/ | Office | Cardiology | [place] | | | 2019 | Visit | | SINDHU Erickson [address] | | | | | | [place], | | | | | | [place] [address] | | | | | | [phone] | | | | | | | [...] - 1.030 | [facility] | | | [place] | | | [facility] | | [...] [address] | [place] | [phone] | | [facility] | | [address] | | | - LABORATORY | | [...] | A preliminary report was sent by [employer] on 04/12/2015 at | | | 9:16 [...] Chanelle fundoplication.A preliminary report was sent by [employer] on 04/12/2015 at | | 9:16 PM [...] | |A preliminary report was sent by [employer] on 04/12/2015 at 9:16 PM with no | |significant discrepancy. | | | |Dictated and Signed by: Kobe Lentz MD | | Electronically signed: 04/13/2015 8:26 AM | + + + +---------+ + + | Performing | Address | City/State/[facility] | Phone Number | | Organization | [...] + | [facility] | [address] | [place] | [phone] | | [facility] | | [address] | | | - LABORATORY | | [...] | | | | | | [employer] | | | | | [...] [address] | [place] | [phone] | | [facility] | | [address] | | | - LABORATORY | | [...] | | | | | | [facility] | | | | | | MEDICAL [...] [address] | [place] | [phone] | | [facility] | | [address] | | | - LABORATORY | | [...] | | | FILTRATION | mL/min/1.73m2 | [facility] | | | SPANISH | RATE,ESTIMATED | | MEDICAL | | | | mL/min/1.44l3Lqwa than | | CENTER - | | [...] [address] | [place] | [phone] | | [facility] | | [address] | | | - LABORATORY | | [...] [address] | [place] | [phone] | | [facility] | | [address] | | | - LABORATORY | | [...] | | | | RAFA WELLS MD ([id number]) | | | | | | on [...]
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
--- OUTSIDE RECORDS SUMMARY | ~2019-01-15 | XMS | Encounter Summary ---
Demographics + + + | Address | [address] | | | [place] [address] | + + + | Home Phone [...] + +------+ + | Care Certified Medical Transcriptionist Name | Role | Phone | + +------+ + PCP | Unavailable | + +------+ + Encounter Details +--------+ + + + + | Date | Type | Department | Care Team | Description | +--------+ + + + + | 05/30/ | [facility] | [facility] | | | | 2009 - | Encounter | MED CTR OP REHAB | | | | | | [address] | | | | 06/23/ | | [place] [address] | | | | 2009 | | [phone] | | | +--------+ + + + [...] [place] | | | | | | [address] | | | | | | | | +--------+---------+ + + + | 11/24/ | Office | Cardiology | [place], | | | 2020 | Visit | | SINDHU Erickson [address] | | | | | | [place], | | | | | | [place] [address] | | | | | | [phone] | | | | | | | | +--------+---------+ + + + documented as of this encounter Visit Diagnoses Not on filedocumented in this encounter"
--- OUTSIDE RECORDS SUMMARY | ~2019-01-15 | XMS | Encounter Summary ---
Demographics + + + | Address | [address] | | | [place] [address] | + + + | Home Phone [...] Team Providers + +------+ + | Care Tombstone Polisher Name | Role | Phone | [...] monitoring (Primary | | | | [address] [facility], | address | Dx) | | | | [address] [place] | | | | | | [place] [address] | | | | | | [phone] | | | +--------+ + + + [...] [place] | | | | | | [address] | | | | | | | | +--------+---------+ + + + | 11/24/ | Office | Cardiology | [place], | | | 2019 | Visit | | SINDHU Erickson [address] | | | | | | [place], | | | | | | [place] [address] | | | | | | [phone] | | | | | | | [...] mL/min/1.73m2 | [facility] | | | [place] | | | MEDICAL | | | [...] + | [facility] | [address] | [place] | [phone] | | [facility] | | [address] | | | - LABORATORY | | | | + + + + + | [facility] | [address] | [place] | | | [facility] | | [address] | | | - LABORATORY | | [...] + | [facility] | [address] | [place], [place] | [phone] | | [facility] | | [address] | | | - LABORATORY | | | | + + + + + | [facility] | [address] | [place], [place] | | | [facility] | | [address] | | | - LABORATORY | | | | + + + + + documented in this encounter Visit Diagnoses + + | Diagnosis | + + | Therapeutic drug monitoring - Primary Encounter for therapeutic drug monitoring | + + documented in this encounter"
--- OUTSIDE RECORDS SUMMARY | ~2019-01-15 | XMS | Encounter Summary ---
Demographics + + + | Address | [address] | | | [place] [address] | + + + | Home Phone [...] Providers + +------+ + | Care Spring Bender Name | Role | Phone | + +------+ + | Juan Cherry DO | PCP | | + +------+ + Reason for Visit +--------+ + | Reason | Comments | +--------+ + | Other | medication request | +--------+ + Encounter Details +--------+ + + + + | Date | Type | Department | Care Team | Description | +--------+ + + + + | 07/19/ | Telephone | [facility] [place] | Kevin Sandoval, | Other (medication | | 2014 | | PULMONARY [address] | MD [address] | request) | | | | [place], | [place] | | | | | [place] [address] | [address] | | | | | [phone] | | | +--------+ + + + [...] [place] | | | | | | [address] | | | | | | | | +--------+---------+ + + + | 11/24/ | Office | Cardiology | [place], | | | 2019 | Visit | | SINDHU Erickson [address] | | | | | | [place], | | | | | | [place] [address] | | | | | | [phone] | | | | | | | | +--------+---------+ + + + documented as of this encounter Visit Diagnoses Not on filedocumented in this encounter"
--- OUTSIDE RECORDS SUMMARY | ~2019-01-15 | XMS | Encounter Summary ---
Demographics + + + | Address | [address] | | | [place] [address] | + + + | Home Phone [...] Providers + +------+ + | Care Internet Merchant Name | Role | Phone | + [...] Refill | [facility] [place] | Kevin Sanodval, | Medication Refill | | 2013 | | PULMONARY [address] | MD [address] | | | | | [place], | [place] | | | | | [place] [address] | [address] | | | | | [phone] | | | +--------+--------+ + + + [...] [place] | | | | | | [address] | | | | | | | | +--------+---------+ + + + | 11/24/ | Office | Cardiology | [place], | | | 2019 | Visit | | SINDHU Erickson [address] | | | | | | [place] | | | | | | [place] [address] | | | | | | [phone] | | | | | | | | +--------+---------+ + + + documented as of this encounter Visit Diagnoses Not on filedocumented in this encounter"
--- OUTSIDE RECORDS SUMMARY | ~2019-01-15 | XMS | Encounter Summary ---
Demographics + + + | Address | [address] | | | [place] [address] | + + + | Home Phone [...] + +------+ + | Care Head Of Cytogenetics Name | Role | Phone | + [...] | | MD Jared | [address] | | | | | Pericarditis | [address] | [place], | | | | | Procedures | [address] | [place] | | | | | ECHO | [place], | [address] | | | | | Complete | [place] [address] | Phone: | | | | | | Phone: | [phone] | | | | | | [phone] | Fax: | | | | | | Fax: | [phone] | | | | | | [phone] | | +--------+--------+ + + + + [...] | CARDIOLOGY [address] | [address] | (Primary Dx); | | | | [place], | [place], | [place]; | | | | [place] [address] | [place] [address] | Tachycardia; | | | | [phone] | [phone] | Pericarditis | | | | | [...] [facility]. Patient was seen by Dr. [...] was seen at the ED of [facility] 3 weeks ago. There was no [...] Take by mouth Daily. Respiratory Therapy Supplies [facility] Incentive spirometer. Please provide instructions in use. Dx: 848.8 MADELEINE: 3 months 1 each 99 Respiratory Therapy Supplies [facility] Please provide patient with necessary CPAP supplies ( she did not specify, okay to send order as appropriate) Diagnosis Code(s)327.23 . Length of Need 99 months. Please send order to [facility]. 1 each 0 Respiratory Therapy Supplies [facility] Change CPAP back to 11-14 cm H2O. All necessary suppl ies. No oxygen bleed in. Diagnosis Code(s)327.23. Length of Need: Lifetime. Please send orde r to [facility]. This is not a new [...] was seen at the ED of [facility] 3 weeks ag o. according to the history, I suspect that she has pericarditis. However, EKG shows no ST elevation. Physical exam shows no pericardial rub. Patient states that she is allergic to NSAID's There is no signs and symptoms of overt congestive heart failure. She is in a class II of [place] [employer] Association functional class. There is no [...] function don e at the [facility]. LVEF 78%. C. Holter Monitor 08/16/13 [...] this chart may have been created with [employer] voice recognition software. Occasi onal wrong-word or [...] [place] | | | | | | [address] | | | | | | | | +--------+---------+ + + + | 11/24/ | Office | Cardiology | [place], | | | 2019 | Visit | | SINDHU Erickson [address] | | | | | | [place], | | | | | | [place] [address] | | | | | | [phone] | | | | | | | [...] Performed At | + + + | [facility] ECHOCARDIOGRAM REPORT | [place] | | STUDY DATE: 01/14/2014 PATIENT NAME: Rosario Malik | [facility] | | : 1965 PCP: Juan Cherry, [facility] | | CLINICAL HISTORY/DIAGNOSIS: Pericarditis/pericardial effusion [...] Mcdonough MD [facility] 01/14/2014 8:40 Mobile Developer: | | | Charmaine Ibarra RDMS | | + + + + + | Procedure Note | + + | Jared Mcdonough MD - 01/14/2014 11:28 AM [facility] | | CENTERECHOCARDIOGRAM REPORTSTUDY DATE: 01/14/2014PATIENT NAME: Rosario AyersOB: | | 1965MRN: [id number]: EFREN GuillaumeLINICAL HISTORY/DIAGNOSIS: | | Pericarditis/pericardial effusionA [...] | mmHgLA volume: 30 mLLA index: 18 mL/j9Oahxln Inflow DT: 262 msIVRT: 75 msValsalva: | | NegativePWDTI S wave: 8.7 cm/sPWDTI E wave: 9.0 cm/sPWDTI A wave: 11.5 cm/sE/A Ratio: | | 0.783E/E Ratio: 8.95Signed by: Jared Mcdonough MD [facility] 01/14/2014 8:40 | | Mobile Developer: Charmaine Ibarra RDMS | | | | [...] 01/14/2014 8:40 | | | | | |Mobile Developer: Charmaine Ibarra RDMS | + + + + + + + | Performing | Address | City/State/Zipcode | Phone Number | | Organization | | | | + + + + + | [facility] | [address] | [place] | [phone] | | [facility] | | [address] | | | - IMAGING | | [...]
--- OUTSIDE RECORDS SUMMARY | ~2019-01-15 | XMS | Encounter Summary ---
Demographics + + + | Address | [address] | | | [place] [address] | + + + | Home Phone [...] Team Providers + +------+ + | Care Implementation Specialist Name | Role | Phone | [...] + + | 10/07/ | Telephone | [facility] | Sandoval Kevin, | Other | | 2014 | | PULMONARY [address] | MD [address] | | | | | [place], | [place], [place] | | | | | [place] [address] | [address] | | | | | [phone] | | | +--------+ + + + [...] [place] | | | | | | [address] | | | | | | | | +--------+---------+ + + + | 11/24/ | Office | Cardiology | [place], | | | 2019 | Visit | | SINDHU Erickson [address] | | | | | | [place] | | | | | | [place] [address] | | | | | | [phone] | | | | | | | | +--------+---------+ + + + documented as of this encounter Visit Diagnoses Not on filedocumented in this encounter"
--- OUTSIDE RECORDS SUMMARY | ~2019-01-15 | XMS | Encounter Summary ---
Demographics + + + | Address | [address] | | | [place] [address] | + + + | Home Phone [...] Team Providers + +------+ + | Care Photographic Supervisor Name | Role | Phone | [...] | esophagitis | [address] | [place] | | | | | presence not | [place], [place] | [place], | | | | | specified | [address] | [place] [address] | | | | | Procedures | Phone: | Phone: | | | | | [place] Gastric | [phone] | [phone] | | | | | Emptying | Fax: | Fax: | | | | | | [phone] | [phone] | +--------+--------+ + + + + Reason for Visit Diagnostic/Screening (Routine) +--------+--------+ + + + + | Status | Reason | Specialty | Diagnoses / | Referred By | Referred To | | | | | Procedures | Contact | Contact | +--------+--------+ + + + + | Closed | | Radiology | Diagnoses | Court | [place] | | | | | | Dio | [place] | | | | | Gastroesopha | MD Jesus | [place] | | | | | geal reflux | [address] | MEDICAL | | | | | disease, | [address] | CENTER [address] | | | | | esophagitis | [address] | [place] | | | | | presence not | [place], [place] | [place], | | | | | specified | [address] | [place] [address] | | | | | Procedures | Phone: | Phone: | | | | | [place] Gastric | [phone] | [phone] | | | | | Emptying | Fax: | Fax: | | | | | | [phone] | [phone] | +--------+--------+ + + + + Encounter Details +--------+ + + + + | Date | Type | Department | Care Team | Description | +--------+ + + + + | 04/02/ | Hospital [facility] | Dio Yun | Gastroesophageal | | 2017 | Encounter | MED CTR NUCLEAR | MD Jesus [address] | reflux disease, | | | | MEDICINE [address] | [place]SEMARY OLMEDO [address] | esophagitis presence | | | | [place], | [place], [place] | not specified | | | | [place] [address] | [address] | | | | | [phone] | [phone] | | | | | | | [...] | | | | | order to [facility]. | | | | | + [...] | | | | | | | ([facility]) | | | | | [...] | 0 | 10/13/19 | | | Dloinhqjsj-QECQ-Xfzl | mouth as needed. | | | 16 | 7 | | -Cod [id number] MG | | | | | | [...] | | | | | | | ([facility]) | | | | | [...] [place] | | | | | | [address] | | | | | | | | +--------+---------+ + + + | 11/24/ | Office | Cardiology | [place], | | | 2019 | Visit | | SINDHU Erickson [address] | | | | | | [place], | | | | | | [place] [address] | | | | | | [phone] | | | | | | | [...] [place] Results In - 04/02/2016 11:38 AM PST NUCLEAR GASTRIC EMPTYING STUDY 04/02/2016 | | 8:44 AMCLINICAL HISTORY: gerdCOMPARISON: UPPER GI FebruaryECHNIQUE: Following oral | | ingestion of 1.0 [...] + | Diagnosis | + + | Gastroesophageal reflux disease, esophagitis presence not specified | + + documented in this encounter Administered Medications + +--------+ + +------+------+ | Medication Order | MAR | Action | Dose | Rate | Site | | | Action | Date | | | | + +--------+ + +------+------+ | technetium TC-99M sulfur | Given | 04/02/19 | 1 | | | | colloid solution 20 millicurie | | 17 8:44 | -millicu | | | | 20 -millicurie, Intravenous, ONCE | | AM PST | mona | | | | SABINE, Other, Starting Tu04/02/16 | | | | | | | at 0844, For 1 dose, Nuclear | | | | | | | Medicine | | | | | | + +--------+ + +------+------+ +---+---+ | | | +---+---+ documented in this encounter
--- OUTSIDE RECORDS SUMMARY | ~2019-01-15 | XMS | Encounter Summary ---
Demographics + + + | Address | [address] | | | [place] [address] | + + + | Home Phone [...] Team Providers + +------+ + | Care Bicycle Subassembler Name | Role | Phone | + [...] | | [place] | [facility] | | | | | [address] | [place] [address] | | | | | [phone] | [phone] | | | | | | | [...] [place] | | | | | | [address] | | | | | | | | +--------+---------+ + + + | 11/24/ | Office | Cardiology | [place], | | | 2019 | Visit | | SINDHU Erickson [address] | | | | | | [place], | | | | | | [place] [address] | | | | | | [phone] | | | | | | | | +--------+---------+ + + + documented as of this encounter Visit Diagnoses Not on filedocumented in this encounter"
--- OUTSIDE RECORDS SUMMARY | ~2019-01-15 | XMS | Encounter Summary ---
Demographics + + + | Address | [address] | | | [place] [address] | + + + | Home Phone [...] Team Providers + +------+ + | Care Websphere Administrator Name | Role | Phone | + +------+ + | Juan Cherry DO | PCP | | + +------+ + Reason for Visit + + + | Reason | Comments | + + + | Medication Problem | [place] | + + + Encounter Details +--------+--------+ + + + | Date | Type | Department | Care Team | Description | +--------+--------+ + + + | 05/28/ | Refill | [facility] [place] | Kade Hoffman MD | Medication Problem | | 2013 | | OCCUPATIONAL HEALTH | [address] [facility] | ([facility]) | | | | [facility] [address] | [place] | | | | | [address] [place] | [address] | | | | | [place] | | | | | | [address] | | | | | | [phone] | | | +--------+--------+ + + + [...] [place] | | | | | | [place] [address] | | | | | | [phone] | | | | | | | | +--------+---------+ + + + documented as of this encounter Visit Diagnoses Not on filedocumented in this encounter"
--- OUTSIDE RECORDS SUMMARY | ~2019-01-15 | XMS | Encounter Summary ---
Demographics + + + | Address | [address] | | | [place] [address] | + + + | Home Phone [...] Team Providers + +------+ + | Care Network Cable Installer Name | Role | Phone | [...] + | 09/16/ | Telephone | [facility] | Kevin Sandoval, | Appointment | | 2014 | | PULMONARY [address] | MD [address] | (CANCELLING | | | | [place], | [place] | APPOINTMENT) | | | | [place] [address] | [address] | | | | | [phone] | | | +--------+ + + + [...] | | | | | | [place] [address] | | | | | | [phone] | | | | | | | | +--------+---------+ + + + documented as of this encounter Visit Diagnoses Not on filedocumented in this encounter"
--- OUTSIDE RECORDS SUMMARY | ~2019-01-15 | XMS | Encounter Summary ---
Demographics + + + | Address | [address] | | | [place] [address] | + + + | Home Phone [...] Providers + +------+ + | Care Seed Cleaning Machine Operator Name | Role | Phone | + +------+ + | Juan Cherry DO | PCP | | + +------+ + Reason for Visit + + + | Reason | Comments | + + + | Hospital Follow-up | | + + + | Syncope | | + + + | Tachycardia | | + + + Encounter Details +--------+---------+ + + + | Date | Type | Department | Care Team | Description | +--------+---------+ + + + | 08/17/ | Office | [facility] | Jared Mcdonough, | Hospital discharge | | 2015 | Visit | CARDIOLOGY [address] [facility] [place], [place] | follow-up (Primary | | | | [place], | [place], | [place]); Tachycardia; | | | | [place] [address] | [place] [address] | Syncope, unspecified | | | | [phone] | [phone] | syncope type | | | | [...] + + + | Blood Pressure | 94/70 | 08/17/2014 10:16 AM | right arm | | | | PDT | | + + + + + | Pulse | 90 | 08/17/2014 10:16 AM | regular | | | | PDT | | + + + + + | Temperature | - | - | | + + + + + | Respiratory Rate | 18 | 08/17/2014 10:16 AM | | | | | PDT | | + + + + + | Oxygen Saturation | - | - | | + + + + + | Inhaled Oxygen | - | - | | | Concentration | | | | + + + + + | Weight | 74.4 kg (164 lb 1.6 | 08/17/2014 10:16 AM | | | | oz) | PDT | | + + + + + | Height | 157.5 cm (5' 2") | 08/17/2014 10:16 AM | | | | | PDT | | + + + + + | Body Mass Index | 30.01 | 08/17/2014 10:16 AM | | | | | PDT [...] encounter Progress Notes Jared Mcdonough MD - 08/17/2014 10:30 AM PDTFormatting of this note might be different f rom the original. PATIENT NAME: Rosario Malik : 1965: AGE: 49 y.o. PRIMARY CARE: Juan Cherry DO OUTPATIENT FOLLOW UP VISIT Date of Service: 08/17/2014 HISTORY OF PRESENT ILLNESS: Rosario Malik is a 49 y.o. female with a history of non-cardiac chest pain, inapprop riate atrial tachycardia, paroxysmal atrial tachycardia with palpitations, emphysema, hypoth yroidism obstructive sleep apnea and nocturnal hypoxemia and bipolar disorder. She is being seen today for follow up tachyarrhythmia. She was last seen 03/17/2014 at which time therapeutic lifestyle change and reassurance were made. Since that time, patient was seen and admitted to [facility] on because she passed out. Workups are negative and she was sent home the next day. Recently, she was put on lorazepam by her PCP to help her anxiety. She feel that she has b een feeling depressed with lorazepam. At time, she had suicidal thoughts but insist that" I would never act on it". When she was recommended to be assessed by crisis team in the doctors hospital room, patient flat out refused to do that. She continued to have a heart rate echo of to 160 beats per minute easily. She reports moiz e palpitations with occasional dizziness and lightheadedness. She does physical activity b y taking care of her 5-year-old granddaughter. No chest pain. No shortness of breath. She denies ankle or leg swelling. She sleeps on one pillow without trouble breathing. MEDICAL, SURGICAL, AND PERSONAL HISTORY Past Medical, [...] Hypoxemia Allergic rhinitis Tachycardia Palpitations Tachyarrhythmia Asthma Pulmonary emphysema Migraine Pericarditis COPD exacerbation Chest pain Abnormal stress test CURRENT MEDICATIONS Current Outpatient Prescriptions Medication Sig Dispense Refill albuterol (PROAIR HFA) 90 mcg/puff inhaler Inhale 2 puffs into the lungs every 6 hours as needed for Wheezing or Shortness of Breath. 1 Inhaler 5 albuterol-ipratropium (DUONEB) 2.5-0.5 mg/3 mL SOLN Take 3 mLs by nebulization every 4 hours as needed. 360 mL 3 alendronate (FOSAMAX) 70 mg tablet Take 70 mg by mouth every 7 days. fluticasone-salmeterol (ADVAIR DISKUS) 500-50 mcg/puff diskus inhaler Inhale 1 puff int o the lungs Twice Daily. 60 each 5 gabapentin (NEURONTIN) 800 MG tablet Take 800 mg by mouth 3 times daily. Ketotifen Fumarate (THERA TEARS ALLERGY OP) Apply to eye as needed. levothyroxine (SYNTHROID, LEVOTHROID) 75 MCG tablet Take 75 mcg by mouth every morning (before breakfast). LORAZEPAM PO Take 0.5 mg by mouth 2 times daily. omeprazole (PRILOSEC) 20 mg capsule Take 20 mg by mouth 2 times daily. oxygen Inhale 2 L into the lungs continuous. predniSONE (DELTASONE) 10 mg tablet Take 1 tablet by mouth Every other day. 15 tablet 3 Respiratory Therapy Supplies [facility] Please provide patient with necessary CPAP supplies ( she did not specify, okay to send order as appropriate) Diagnosis Code(s)327.23 . Length of Need 99 months. Please send order to [facility]. 1 each 0 [facility]AP back to 11-14 cm H2O. All necessary suppl ies. No oxygen bleed in. Diagnosis Code(s)327.23. Length of Need: Lifetime. Please send orde r to [facility]. This is [...] Inhale 2 puffs into the lungs Daily. 1 Inhaler 3 traMADol (ULTRAM) 50 mg tablet Take [...] attacks ROS ROS OBJECTIVE: PHYSICAL EXAM BP 94/70 | Pulse 90 | Resp 18 | Ht 1.575 m (5' 2") | Wt 74.435 kg (164 lb 1.6 oz) | BMI 30. 01 kg/m2 Physical Exam Constitutional: She appears well-developed [...] xhibit a depressed mood. ECG: Sinus rhythm, heart rate 90 beats per minute, normal EKG. LAB RESULTS: LIPID No results found for this basename: chol, trig, ldlcalc, hdl, ldl, calculated, cholhdl, ldl ex, hdlex, trigex, cholex CHEMISTRY Lab Results Component Value Date GLU 128* 02/28/2014 NA 135* 02/28/2014 K 3.7 02/28/2014 CL 105 02/28/2014 CO2 24 02/28/2014 CALCIUM 8.7 02/28/2014 ALKPHOS 80 05/20/2013 AST 28 04/12/2013 AST 28 04/12/2013 ASTEX 27 05/10/2013 ALT 26 04/12/2013 ALT 26 04/12/2013 ALTEX 21 05/10/2013 BILITOT 0.6 05/20/2013 CREA 0.94 02/28/2014 BUN 7 02/28/2014 EGFR >60 03/22/2013 EGFREX 60 05/10/2013 CREEX 0.8 05/10/2013 HEMATOLOGY Lab Results Component Value Date WBC 13.3* 07/14/2013 WBCEX 10.8 05/10/2013 HGB 14.2 07/14/2013 HGBEX 14.5 05/10/2013 HCT 42.9 07/14/2013 HCTEX 43.2 05/10/2013 PLT 343 07/14/2013 PLTEX 299 05/10/2013 I reviewed records from [facility] for emergency department visit on 07/10/14 . ASSESSMENT: 1. Palpitation secondary to the paroxysmal atrial tachycardia/inappropriate sinus tachycard ia/syncope A. She has been in her usual state of health until about months ago when she started to no analisa the fluctuation of her pulses. She stated her heart rate can go up to 130 per minute w hile she was sitting in a chair doing nothing. B. Echocardiogram, 08/23/2013 normal systolic left ventricular and ventricular function don e at the [facility]. LVEF 78%. C. Holter Monitor 08/16/13 [...] not gone back to see Dr. Ding. No indication for RF ablation. E. Patient was seen and admitted to [facility] on 07/10/13 because she pa ssed out. Workups are negative and she was sent home the next day.Echocardiogram, 07/11/2014 shows normal left ventricular systolic function, grossly normal valves, grade 1 of diastoli c dysfunction, mild pulmonary hypertension. F. She continued to have a heart rate echo of to 160 beats per minute easily. She reports some palpitations with occasional dizziness and lightheadedness. She does physical activit y by taking care of her 5-year-old granddaughter. No chest pain. No shortness of breath. She denies ankle or leg swelling. She sleeps on one pillow without trouble breathing. There is no signs and symptoms of overt congestive heart failure. She is in a class I of [place] [employer] functional class. There is no fluid retention on physical exami nation. 2. Non-cardiac chest pain A. Echocardiogram 01/14/2014, shows normal left ventricular [...] procedure, exercise tolerance is normal for age. C.Left heart catheterization, 02/28/2014 shows essentially normal, smoothly contoured henao ry arteries, there is a right dominate circulation, normal LV systolic function with an EF o f 60%, systemic blood pressure is normal. 3. Bipolar disorder/depression/anxiety A. Recently, she was put on lorazepam by her PCP to help her anxiety. She feel that she h as been feeling depressed with lorazepam. At time, she had suicidal thoughts but insist maria t" I would never act on it". When she was recommended to be assessed by crisis team in the emergency room, patient flat out refused to do that. 4. Emphysema/COPD 5. Hypothyroidism 6. Obstructive sleep apnea and nocturnal hypoxemia A. She is using CPAP machine and nighttime oxygen supplement. PLAN: 1. Prescribed metoprolol 12.5 mg as needed for heart rate above 150 bpm. 2. I recommend a therapeutic lifestyle change including walking 15 minutes a day, choosing healthy choices of diet. 3. Patient refused to go to the emergency room and be assessed by crisis team. 4. Follow-up in 2-3 months. Electronically signed by: Jared Mcdonough MD [facility] 08/17/2014 Portions of this chart may have been created with [employer] voice recognition software. Occasi onal wrong-word or [...] [place] | | | | | | [id number] | | | | | | | | +--------+---------+ + + + | 11/24/ | Office | Cardiology | [place], | | | 2019 | Visit | | SINDHU Erickson [address] | | | | | | [place], | | | | | | [place] [address] | | | | | | [phone] | | | | | | | | +--------+---------+ + + + + +------+--------+ + + | Name | Type | Priori | Associated Diagnoses | Order Schedule | | | | ty | | | + +------+--------+ + + | ECG 12 lead | ECG | Routin | Hospital discharge | Ordered: 08/17/2014 | | | | e | follow-up | | | | | | Tachycardia | | | | | | Syncope, unspecified | | | | | | syncope type | | + +------+--------+ + + documented as of this encounter Procedures + +--------+ + + + | Procedure Name | Priori | Date/Time | Associated Diagnosis | Comments | | | ty | | | | + +--------+ + + + | ECG - EXTERNAL SCAN | | 08/17/2014 | | Results for this | | | | 12:00 AM | | procedure are in the | | | | PDT | | results section. | + +--------+ + + + documented in this encounter Results ECG - EXTERNAL SCAN (08/17/2014 12:00 AM PDT) + + + | Narrative | Performed At | + + + | Ordered by an | | | unspecified provider. | | + + + documented in this encounter Visit Diagnoses + + | Diagnosis | + + | Hospital discharge follow-up - Primary Other follow-up examination | + + | Tachycardia Tachycardia, unspecified | + + | Syncope, unspecified syncope type | + + documented in this encounter
--- OUTSIDE RECORDS SUMMARY | ~2019-01-15 | XMS | Encounter Summary ---
Demographics + + + | Address | [address] | | | [place] [address] | + + + | Home Phone [...] Team Providers + +------+ + | Care Gin Clerk Name | Role | Phone | [...] + | 07/24/ | Telephone | [facility] | Meghan Garcia MD | Follow-up | | 2019 | | SLEEP DISORDER [address] | [address] | | | | | [place] | [place] | | | | | [place] [address] | [address] | | | | | [phone] | | | +--------+ + + + [...] [place] | | | | | | [address] | | | | | | | | +--------+---------+ + + + | 11/24/ | Office | Cardiology | [place], | | | 2019 | Visit | | SINDHU Erickson [address] | | | | | | [place], | | | | | | [place] [address] | | | | | | [phone] | | | | | | | | +--------+---------+ + + + documented as of this encounter Visit Diagnoses Not on filedocumented in this encounter"
--- OUTSIDE RECORDS SUMMARY | ~2019-01-15 | XMS | Encounter Summary ---
Demographics + + + | Address | [address] | | | [place] [address] | + + + | Home Phone [...] Team Providers + +------+ + | Care Corporate Statistical Financial Analyst Name | Role | Phone | + +------+ + PCP | Unavailable | + +------+ + Encounter Details +--------+ + + + + | Date | Type | Department | Care Team | Description | +--------+ + + + + | 10/06/ | [facility] | [facility] | | | | 2008 | Encounter | [facility] | | | | | | [address] | | | | | | [place] | | | | | | [address] | | | | | | [phone] | | | +--------+ + + + [...] [place] | | | | | | [address] | | | | | | | | +--------+---------+ + + + | 11/24/ | Office | Cardiology | [place], | | | 2020 | Visit | | SINDHU Erickson [address] | | | | | | [place], | | | | | | [place] [address] | | | | | | [phone] | | | | | | | | +--------+---------+ + + + documented as of this encounter Visit Diagnoses Not on filedocumented in this encounter"
--- OUTSIDE RECORDS SUMMARY | ~2019-01-15 | XMS | Encounter Summary ---
Demographics + + + | Address | [address] | | | [place] [address] | + + + | Home Phone [...] Team Providers + +------+ + | Care Foundation Drill Operator Name | Role | Phone | [...] + + + + | 07/14/ | Emergency | [facility] | Ozzie Hayes | Acute exacerbation | | 2013 | | [facility] | MD Ran [address] | of COPD with asthma | | | | [place] [address] | [place] [facility] | ([facility]) (Primary Dx) | | | | [place], [place] | [place] [address] | | | | | [address] | [phone] | | | | | [phone] | | | +--------+ + + + [...] + | Blood Pressure | 100/59 | 07/14/2013 5:45 AM | | | | | PDT | | + + + + + | Pulse | 109 | 07/14/2013 8:14 AM | | | | | PDT | | + + + + + | Temperature | 36.9 C (98.4 F) | 07/14/2013 12:25 AM | | | | | PDT | | + + + + + | Respiratory Rate | 28 | 07/14/2013 12:18 AM | | | | | PDT | | + + + + + | Oxygen Saturation | 90% | 07/14/2013 8:14 AM | | | | | PDT | | + + + + + | Inhaled Oxygen | - | - | | | Concentration | | | | + + + + + | Weight | 70.8 kg (156 lb) | 07/14/2013 12:18 AM | | | | | PDT | | + + + + + | Height | 157.5 cm (5' 2") | 07/14/2013 12:18 AM | | | | | PDT | | + + + + + | Body Mass Index | 28.53 | 07/14/2013 12:18 AM | | | | | PDT | | + + + + + documented in this encounter Discharge Instructions Ozzie Jo MD - 07/14/2013Use medication as directed. Return to e mergency department immediately with recurrent or worsening symptoms. Followup with your do ctor for recheck this week. AttachmentsThe following attachments cannot be sent through Care Everywhere.COPD FLARE (AMNA HAYEDN)documented in this encounter Medications at Time of [...] | | | | | order to [facility]. | | | | | [...] tablets by | 20 | 0 | 07/15/19 | | | (DELTASONE) 10 mg | mouth Daily for 5 | tablet | | 14 | 4 | | tablet | doses. | | | | | + + [...] [place] | | | | | | [address] | | | | | | | | +--------+---------+ + + + | 11/24/ | Office | Cardiology | [place], | | | 2019 | Visit | | SINDHU Erickson [address] | | | | | | [place], | | | | | | [place] [address] | | | | | | [phone] | | | | | | | | +--------+---------+ + + + documented as of this encounter Procedures + +--------+ + + + | Procedure Name | Priori | Date/Time | Associated Diagnosis | Comments | | | ty | | | | + +--------+ + + + | CBC W/AUTO | STAT | 07/14/2013 | | Results for this | | DIFFERENTIAL | | 3:00 AM | | procedure are in the | | | | PDT | | results section. | + +--------+ + + + | BASIC METABOLIC | STAT | 07/14/2013 | | Results for this | | PANEL | | 3:00 AM | | procedure are in the | | | | PDT | | results section. | + +--------+ + + + | XR CHEST AP PORTABLE | STAT | 07/14/2013 | | Results for this | | | | 12:45 AM | | procedure are in the | | | | PDT | | results section. | + +--------+ + + + | ED INFORMATION | Routin | 07/14/2013 | | Results for this | | EXCHANGE | e | 12:20 AM | | procedure are in the | | | | PDT | | results section. | + +--------+ + + + documented in this encounter Results Basic Metabolic Panel (07/14/2013 3:00 AM PDT) + + + + + [...] + + + + | K | 3.2 (L) | 3.5 - 5.1 | [facility] [...] + + + + | Glucose | 152 (H) | 70 - 109 mg/dL | [facility] | | | | | | [facility] | | | | | | [facility] | | | | | | [facility] - | | | | | | LABORATORY | | + + + + + + | BUN | 9 | 7 - 18 mg/dL | [facility] | | | | | | [facility] | | | | | | [facility] | | | | | | CENTER - | | | | | | LABORATORY | | + + + + + + | Creatinine | 0.76 | 0.60 - 1.30 | [facility] | | | | | mg/dL | [facility] | | | | | | MEDICAL | | | | | | CENTER - | | | | | | LABORATORY | | + + + + + + | eGFR if not | >60Comment: GLOMERULAR | >=60 | [facility] | | | | FILTRATION | mL/min/1.73m2 | [facility] | | | LAO | RATE,ESTIMATED | | MEDICAL | | | | mL/min/1.98c6Eizi than | | CENTER - | | [...] + + + + | Calcium | 9.6 | 8.3 - 10.5 | [facility] | | | | | mg/dL | [facility] | | | | | | MEDICAL | | | | | | CENTER - | | | | | | LABORATORY | | + + + + + + | BUN/Creatin | 11.8 | | [facility] | | | ine [...] + | [facility] | [address] | [place] | [phone] | | [facility] | | [address] | | | - LABORATORY | | | | + + + + + | [facility] | [address] | [place], [place] | | | [facility] | | [address] | | | - LABORATORY | | | | + + + + + CBC w/ Auto Differential (07/14/2013 3:00 AM PDT) + + + + + + | Component | Value | Ref Range | Performed | Pathologist | | | | | At | Signature | + + + + + + | WBC | 13.3 (H) | 4.0 - 11.0 K/uL | [facility] | | | | | | [facility] | | | | | | MEDICAL | | | | | | CENTER - | | | | | | LABORATORY | | + + + + + + | RBC | 5.00 | 3.70 - 5.20 | [facility] | | | | | M/uL | [facility] | | | | | | MEDICAL | | | | | | CENTER - | | | | | | LABORATORY | | + + + + + + | Hemoglobin | 14.2 | 11.5 - 16.0 | [facility] | | | | | g/dL | [facility] | | | | | | [facility] | | | | | | CENTER - | | | | | | LABORATORY | | + + + + + + | Hematocrit | 42.9 | 34.0 - 47.0 % | [facility] | | | | | | [facility] | | | | | | [facility]ICAL | | | | | | CENTER - | | | | | | LABORATORY | | + + + + + + | MCV | 85.8 | 83.0 - 101.0 fL | [facility] | | | | | | [facility] | | | | | | [facility] | | | | | | CENTER - | | | | | | LABORATORY | | + + + + + + | MCH | 28.4 | 28.0 - 35.0 pg | [facility] | | | | | | [facility] | | | | | | [facility]ICAL | | | | | | CENTER - | | | | | | LABORATORY | | + + + + + + | MCHC | 33.0 | 32.0 - 36.0 | [facility] | [...] + + + + | Platelet | 343 | 140 - 440 K/uL | [facility] [...] + + + + | % | 89.3 (H) | 45.0 - 82.0 % | [facility] | | | Neutrophils | | | [facility] | | | | | | MEDICAL | | | | | | CENTER - | | | | | | LABORATORY | | + + + + + + | % | 6.5 (L) | 20.0 - 45.0 % | [facility] | | | Lymphocytes | | | [facility] | | | | | | MEDICAL | | | | | | CENTER - | | | | | | LABORATORY | | + + + + + + | % Monocytes | 2.1 (L) | 4.0 - 12.0 % | [facility] | | | | | | [facility] | | | | | | MEDICAL | | | | | | CENTER - | | | | | | LABORATORY | | + + + + + + | % | 1.6 | 0.0 - 5.0 % | [facility] [...] + + + + | Absolute | 11.90 (H) | 1.80 - 8.50 | [facility] | | | Neutrophils | | K/uL | [facility] | | | | | | MEDICAL | | | | | | CENTER - | | | | | | LABORATORY | | + + + + + + | Absolute | 0.90 | 0.60 - 3.20 | [facility] | [...] + + | Performing | Address | City[facility] | Phone Number | | Organization | | | | + + + + + | [facility] | [address] | [place] | [phone] | | [facility] | | [address] | | | - LABORATORY | | | | + + + + + | [facility] | [address] | [place] | | | [facility] | | [address] | | | - LABORATORY | | | | + + + + + XR Chest AP Portable (07/14/2013 12:45 AM PDT) + + | Specimen | + + | | + + + + + | Narrative | Performed At | + + + | XR CHEST AP PORTABLE. 07/14/2013 12:45 AM HISTORY: chest pain . | [facility] | | COMPARISON: Chest x-ray 06/18/2013 FINDINGS: Heart size | LAB | | and mediastinal contours are within normal limits. There is mild | | | blunting at the left costophrenic angle as compared with 06/18/2013. | | | No focal consolidation to suggest pneumonia. No pneumothorax. | | | No acute osseous or soft tissue abnormalities. IMPRESSION - | | | Trace left pleural effusion. No focal consolidation to suggest | | | pneumonia. Dictated and Signed by: Sterling Lee MD | | | Electronically signed: 07/14/2013 10:42 AM | | + + + + + | Procedure Note | + + | Reed, Rad Results In - 07/14/2013 10:45 AM PDT XR CHEST AP PORTABLE. 07/14/2013 12:45 | | AMHISTORY: chest pain . COMPARISON: Chest x-ray 06/18/2013FINDINGS:Heart size and | | mediastinal contours are within normal limits. There is mildblunting at the left | | costophrenic angle as compared with 06/18/2013. No focalconsolidation to suggest | | pneumonia. No pneumothorax. No acute osseous or softtissue abnormalities.IMPRESSION | | -Trace left pleural effusion. No focal consolidation to suggest pneumonia.Dictated and | | Signed by: Sterling Lee MD Electronically signed: 07/14/2013 10:42 AM | |Heart size and mediastinal contours are within normal limits. There is mild | |blunting at the left costophrenic angle as compared with 06/18/2013. No focal | |consolidation to suggest pneumonia. No pneumothorax. No acute osseous or soft | |tissue abnormalities. | | | | | |IMPRESSION - | |Trace left pleural effusion. No focal consolidation to suggest pneumonia. | | | |Dictated and Signed by: Sterling Lee MD | | Electronically signed: 07/14/2013 10:42 AM | + + + +---------+ + + | Performing | Address | City/State/Zipcode | Phone Number | | Organization | | | | + +---------+ + + | [facility] | | | [phone] | + +---------+ + + | [facility] | | | [phone] | + +---------+ + + ED INFORMATION EXCHANGE (07/14/2013 12:20 AM PDT) + + | Specimen | + + | | + + + + + | Narrative | Performed At | + + + | VISIT TRACKING (3 MO.) Visit Date Location | [facility] | | Type Diagnoses | | | -------- | | | ---- 07/14/2013 00:15 [place] | | | [facility] Emergency Shortness of Breath; | | | 06/19/2013 21:06 [facility] | | | Emergency Obstructive chronic bronchitis with (acute) | | | exacerbation; | | | Shortness of | | | Breath; | | | diff breathing; | | | 06/19/2013 11:03 [facility] | | | Emergency COPD exasperation; 05/23/2013 19:52 [place] | | | [facility] Emergency Obstructive chronic | | | bronchitis with (acute) exacerbation; | | | | | | Obstructive chronic bronchitis with (acute) exacerbation; | | | | | | sob; | | | | | | Shortness of Breath; VISIT COUNT (1 YR.) Visits | | | Medicaid [place] Dx Location ------ | | | --------- 10 0 [facility] | | | [facility] 10 0 Total | | | Note: Visits indicate total known visits. Medicaid [place] Dx are the | | | number of primary diagnoses on the [facility]'s non-emergent dx list. | | | [...] | Diagnosis | + + | Acute exacerbation of COPD with asthma (HCC) - Primary Chronic obstructive asthma | | with exacerbation | + + documented in this encounter Administered Medications + +--------+ +--------+------+------+ | Medication Order | MAR | Action | Dose | Rate | Site | | | Action | Date | | | | + +--------+ +--------+------+------+ | albuterol 5 mg/mL concentrated | Given | 07/15/19 | 2.5 mg | | | | nebulizer solution 10 mg 10 mg, | | 14 1:03 | | | | | Nebulization, RT Once, Wed | | AM PDT | | | | | 07/14/13 at 0115, For 1 dose, RT | | | | | | | will administer., | | | | | | + +--------+ +--------+------+------+ +---+---+ | | | +---+---+ + +-------+ +-------+---+---+ | albuterol-ipratropium (DUONEB) | Given | 07/15/19 | 3 mLs | | | | 2.5-0.5 mg/3 mL nebulizer | | 14 12:33 | | | | | solution 3 mL 3 mL, | | AM PDT | | | | | Nebulization, RT Once, Wed | | | | | | | 07/14/13 at 0045, For 1 dose | | | | | | + +-------+ +-------+---+---+ +---+---+ | | | +---+---+ + +-------+ +-------+---+---+ | albuterol-ipratropium (DUONEB) | Given | 07/15/19 | 3 mLs | | | | 2.5-0.5 mg/3 mL nebulizer | | 14 8:12 | | | | | solution 3 mL 3 mL, | | AM PDT | | | | | Nebulization, RT Once, Wed | | | | | | | 07/14/13 at 0830, For 1 dose | | | | | | + +-------+ +-------+---+---+ +---+---+ | | | +---+---+ + +-------+ +--------+---+---+ | azithromycin (ZITHROMAX) tablet | Given | 07/15/19 | 500 mg | | | | 500 mg 500 mg, Oral, ONCE, Wed | | 14 6:42 | | | | | 07/14/13 at 0700, For 1 dose | | AM PDT | | | | + +-------+ +--------+---+---+ +---+---+ | | | +---+---+ + +-------+ +-------+---+---+ | predniSONE (DELTASONE) tablet | Given | 07/15/19 | 40 mg | | | | 40 mg 40 mg, Oral, ONCE, Wed | | 14 12:29 | | | | | 07/14/13 at 0045, For 1 dose | | AM PDT | | | | + +-------+ +-------+---+---+ +---+---+ | | | +---+---+ documented in this encounter
--- OUTSIDE RECORDS SUMMARY | ~2019-01-15 | XMS | Encounter Summary ---
Demographics + + + | Address | [address] | | | [place] [address] | + + + | Home Phone [...] Providers + +------+ + | Care Diesel Locomotive Crane Operator Name | Role | Phone | [...] Description | +--------+---------+ + + + | 02/22/ | Office | [facility] [place] | [place], | COPD exacerbation | | 2012 | Visit | PULMONARY [address] | Loreta Alonso MD | ([facility]) (Primary Dx); | | | | [place], | | GARRY (obstructive | | | | [place] [address] | | sleep apnea); | | | | [phone] | | Central sleep apnea; | | | | | | Insomnia; Insomnia | +--------+---------+ + + + Social [...] + | Blood Pressure | 104/58 | 02/22/2013 10:55 AM | | | | | PST | | + + + + + | Pulse | 77 | 02/22/2013 10:55 AM | | | | | PST | | + + + + + | Temperature | - | - | | + + + + + | Respiratory Rate | - | - | | + + + + + | Oxygen Saturation | 93% | 02/22/2013 10:55 AM | | | | | PST | | + + + + + | Inhaled Oxygen | - | - | | | Concentration | | | | + + + + + | Weight | 65.1 kg (143 lb 8 | 02/22/2013 10:55 AM | | | | oz) | PST | | + + + + + | Height | 157.5 cm (5' 2") | 02/22/2013 10:55 AM | | | | | PST | | + + + + + | Body Mass Index | 26.25 | 02/22/2013 10:55 AM | | | | | PST | | + + + + + documented in this encounter Patient Instructions Patient Instructions Loreta London MD - 02/22/2013 11:33 AM PSTTake antibiotics an d steroids. Use your CPAP more often. Do what you think you need to do. If this does not work, we will have you see Maxim again. CPAP download to next visit. Electronically signed by Loreta London MD at 3 11:33 AM PST documented in this encounter Progress Notes Loreta London MD - 02/22/2013 11:13 AM PSTFormatting of this note might be differe nt from the original. Pulmonary Follow Up Note MD [place] [facility] [address] [place], [address] [facility] Rosario Malik is a 48 y.o. female patient of Juan Cherry here today for follow up of COPD. At their last visit, we had resumed her Spiriva in addition to the Advair. She called in on the as she had symptoms of URI for several days with increased coughing and shortness of breath. She was prescribed prednisone, which she started, but went in to the ER later maria t evening. Her saturation was 93% in the ER. She was treated with nebulizers, and her satura tions improved to 96-97%. She was 90-91% with sleep. She finished the prednisone. She notes her main complaint is that she is exhausted. She rep orts that she is coughing frequently. Her breathing is okay. She is sleeping from 11pm to 3-4am. She then gets up for a while, and then goes back to bed and sleeps until 6am. For the last 2 days she has been napping, for up to 2 hours a day. Her average CPAP usage i s 3:28 minutes a day. She reports that this is all that she is sleeping. She reports that ritesh russell is wearing her CPAP when she is napping. She reports that she did not do well when she tri ed to follow our recommended guidelines, not napping and getting consolidated sleep. She fee ls like she would benefit from just napping more often, and this is when she feels best. She did get a new mask in mid December. She feels like this is working for her. 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 [DISCONTINUED] predniSONE (DELTASONE) 10 mg tablet 20 mg 2 times daily. Respiratory Therapy Supplies MISC Please provide patient with necessary CPAP supplies ( she did not specify, okay to send order as appropriate) Diagnosis Code(s)327.23 . Length of Need 99 months. Please send order to [facility]. 1 each 0 Respiratory Therapy Supplies MISC Change CPAP back to 11-14 cm H2O. All necessary suppl ies. No oxygen bleed in. Diagnosis Code(s)327.23. Length of Need: Lifetime. Please send orde r to [facility]. This is not a new [...] Review of Systems Constitutional: Denies fever, chills, and change in weight. Has had a lot of sweats day an d night. Sleep: Having a lot of difficulty sleeping, and is using CPAP some of the time. Eyes: Her vision is blurry. She is on medications that cause this. ENT: Denies earache, decreased hearing, nosebleeds. Has had nasal congestion, sore throat , hoarseness from her cold. Resp: See HPI. CV: Denies chest pain, palpitations, syncope, and peripheral edema. GI: Denies nausea, vomiting, and abdominal pain. Has had heartburn and nausea. : Denies difficulty emptying bladder and nocturia. Objective BP 104/58 | Pulse 77 | Ht 1.575 m (5' 2") | Wt 65.091 kg (143 lb 8 oz) | BMI 26.25 kg/m2 | SpO2 93% RA General Appearance: Alert, cooperative, no distress, appears stated age, coughs occasional ly Head: Normocephalic, without obvious abnormality, atraumatic Eyes: PERRL, conjunctiva clear, no scleral icterus, EOM's intact Ears: Normal TM's, external auditory canals, normal acuity Nose: Nares normal, septum deviated, mucosa mildly edematous Mouth: No oral lesions or exudate Neck: Supple, symmetrical, no adenopathy Lungs: No accessory muscle use, breath sounds are diffusely rhonchorous bilaterally, no wheezes or crackles Chest Wall: No deformity Heart: Regular rate and rhythm, no murmur, rub or gallop Abdomen: Soft, non-tender, non-distended Extremities: No cyanosis, clubbing, or edema Pulses: Radial pulses 2+ and symmetric Skin: Warm and dry Lymph nodes: Cervical and supraclavicular nodes normal Data: CPAP Data: Dates: 01/23/13 Machine type: L'Idealist S9 auto CPAP Home Health Company: [employer] CPAP Pressure: 11-14 cm H2O cmH2O Median Titrated Pressure: 11.9 cmH2O 95%tile Pressure: 13.8 cmH2O Maximum Pressure: 13.9 cmH2O AHI: 7.2 events/hour Total number of days: 30 Number of days used: 25 Median daily usage: 3:52 hours Percent of days used for more than 4 hours: 40 % Median leak: 2.4 L/min Nestor Martinez's notes were reviewed today. Immunization History Administered Date(s) Administered INFLUENZA, >= 4YO W/PRESERVATIVE IM 12/12/2010 INFLUENZA, PRESERVATIVE FREE IM 12/13/2011, 11/27/2012 Pneumococcal (Adult) 02/24/2011 Tdap 01/22/2008 Assessment 1. COPD exacerbation - Some persistent symptoms and exam findings. Will give her some antib iotics and steroids today. In no distress. Her COPD would be better if she wore her CPAP. 2. GARRY (obstructive sleep apnea) - Continued poor compliance, which she says is because thi s is all she is sleeping. I suspect that she is removing it, and I pointed out there were 5 days she did not wear it at all. 3. Central sleep apnea - Her AHI is high, but has come down previously when her CPAP usage increased. Will follow. 4. Insomnia - Multifactorial due to sleep apnea, psychiatric issues and poor sleep hygiene. She is resistant to changing her behaviors. Plan 1.Repeat course of prednisone. 2.Course of cephalexin given. 3.CPAP use encouraged. If she does not increase, I will have her see Maxim Delgado again. She was advised to call if new pulmonary symptoms were to develop. Return to clinic in 4 weeks, or sooner with concerns. CC: Juan Cherry Portions of this report were transcribed using voice recognition software. Every effort wa s made to ensure accuracy; however, inadvertent computerized automation engineer errors may be pre sent. documented in t his encounter Plan of Treatment +--------+---------+ + + + | Date | Type | Specialty | Care Team | Description | +--------+---------+ + + + | 03/01/ | Office | Pulmonology | Mukul Clark MD | | | 2019 | Visit | | [address] | | | | | | [place] | | | | | | [address] | | | | | | | | +--------+---------+ + + + | 11/24/ | Office | Cardiology | [place], | | | 2019 | Visit | | SINDHU Erickson [address] | | | | | | [place], | | | | | | [place] [address] | | | | | | [phone] | | | | | | | [...] Insomnia Insomnia, unspecified | + + | Insomnia Organic insomnia, unspecified | + + documented in this encounter
--- OUTSIDE RECORDS SUMMARY | ~2019-01-15 | XMS | Encounter Summary ---
Demographics + + + | Address | [address] | | | [place] [address] | + + + | Home Phone [...] Team Providers + +------+ + | Care Desilverizer Name | Role | Phone | + [...] + + | 02/14/ | Telephone | [facility] | Jesus Quiles | Shortness of Breath | | 2012 | | PULMONARY [address] | [place] [address] [facility] | | | | | [place], | [place], [place] | | | | | [place] [address] | [address] | | | | | [phone] | | | +--------+ + + + [...] [place] | | | | | | [address] | | | | | | | | +--------+---------+ + + + | 11/24/ | Office | Cardiology | [place], | | | 2019 | Visit | | SINDHU [address]ks[address] | | | | | | [place], | | | | | | [place] [address] | | | | | | [phone] | | | | | | | | +--------+---------+ + + + documented as of this encounter Visit Diagnoses + + | Diagnosis | + + | COPD (chronic obstructive pulmonary disease) (HCC) - Primary Chronic airway | | obstruction, not elsewhere classified | + + documented in this encounter"
--- OUTSIDE RECORDS SUMMARY | ~2019-01-15 | XMS | Encounter Summary ---
Demographics + + + | Address | [address] | | | [place] [address] | + + + | Home Phone [...] Team Providers + +------+ + | Care Food Service Helper Name | Role | Phone | [...] | | | | [facility] | [address] | [address] | | | | | EXERCISE | [place], | [place] | | | | | | [place] [address] | [place], [place] | | | | | | Phone: | [address] | | | | | | [phone] | Phone: | | | | | | Fax: | [phone] | | | | | | [phone] | Fax: | | | | | | | [phone] | +--------+--------+ + + + + Encounter Details +--------+---------+ + + + | Date | Type | Department | Care Team | Description | +--------+---------+ + + + | 08/01/ | Office | [facility] | Jared Mcdonough, | Chronic obstructive | | 2017 | Visit | [facility] | MD Migdalia King | pulmonary disease, | | | | [facility] [address], | unspecified COPD | | | | [address] [place] | [place] [address] | type (HCC) (Primary | | | | [place] [address] | [phone] | Dx); Mild persistent | | | | [phone] | | asthma without | | | [...] this encounter Progress Notes Desean Chris - 08/01/2016 10:15 AM PDTPatient tolerated exercise session without [...] [place] | | | | | | [address] | | | | | | | | +--------+---------+ + + + | 11/24/ | Office | Cardiology | [place], | | | 2019 | Visit | | [address] | | | | | | [place], | | | | | | [place] [address] | | | | | | [phone] | | | | | | | | +--------+---------+ + + + documented as of this encounter Visit Diagnoses + + | Diagnosis | + + | Chronic obstructive pulmonary disease, unspecified COPD type (HCC) - Primary | + + | Mild persistent asthma without complication Unspecified asthma | + + documented in this encounter"
--- OUTSIDE RECORDS SUMMARY | ~2019-01-15 | XMS | Encounter Summary ---
Demographics + + + | Address | [address] | | | [place] [address] | + + + | Home Phone [...] Team Providers + +------+ + | Care Plant Operations Vice President Name | Role | Phone | + [...] | | | | | [place] | [facility] | | | | | [address] | [place] [address] | | | | | [phone] | [phone] | | | | | | | [...] [place] | | | | | | [address] | | | | | | | | +--------+---------+ + + + | 11/24/ | Office | Cardiology | [place], | | | 2019 | Visit | | SINDHU Erickson [address] | | | | | | [place], | | | | | | [place] [address] | | | | | | [phone] | | | | | | | | +--------+---------+ + + + documented as of this encounter Visit Diagnoses Not on filedocumented in this encounter"
--- OUTSIDE RECORDS SUMMARY | ~2019-01-15 | XMS | Encounter Summary ---
Demographics + + + | Address | [address] | | | [place] [address] | + + + | Home Phone [...] Team Providers + +------+ + | Care English Language Arts Teacher Name | Role | Phone | + +------+ + PCP | Unavailable | + +------+ + Encounter Details +--------+ + + + + | Date | Type | Department | Care Team | Description | +--------+ + + + + | 10/11/ | Hospital | [facility] | Berna Glass MD | HEADACHE; | | 2010 | Encounter | CONVERSION DEP [address] | [address] | Diplopia; | | | | [address] | [place] [address] | Dizziness | | | | [place], [place] | [phone] | | | | | [address] | | | | | | [phone] | | | +--------+ + + + [...] [place] | | | | | | [address] | | | | | | | | +--------+---------+ + + + | 11/24/ | Office | Cardiology | [place], | | | 2019 | Visit | | SINDHU Erickson [address] | | | | | | [place], | | | | | | [place] [address] | | | | | | [phone] | | | | | | | [...] Performed At | + + + | [place] [id number] Ph: | | | Patient Name: JADYN SCHMITZ Date of : | | | 1965 Medical Record: [id number] Account: [id number] | | | Exam Date/Time: 10/11/2010 12:00 [...] The data set was also examined with [employer] software | | | for evaluation [...] - 10/17/2018 5:21 PM PDT | | [facility] | | [facility] [address] | | | | | | Patient Name: JADYN SCHMITZ W | | Date of : 1965 | | Medical Record: [id number] | | Account: [id number] | | | | | | Exam [...] set was also examined with | | [employer] software for evaluation of the cerebral [...]
--- OUTSIDE RECORDS SUMMARY | ~2019-01-15 | XMS | Encounter Summary ---
Demographics + + + | Address | [address] | | | [place] [address] | + + + | Home Phone [...] Team Providers + +------+ + | Care Recruitment And Outreach Assistant Name | Role | Phone | [...] | esophagitis | [address] | [place] | | | | | presence not | [place], [place] | [place], | | | | | specified | [address] | [place] [address] | | | | | Procedures | Phone: | Phone: | | | | | NM Gastric | [phone] | [phone] | | | | | Emptying | Fax: | Fax: | | | | | | [phone] | [phone] | +--------+--------+ + + + + Reason [...] | | Gastroesopha | MD Jesus | [facility] | | | | | geal reflux | [address] | MEDICAL | | | | | disease, | [address] | CENTER [address] | | | | | esophagitis | [address] | [place] | | | | | presence not | [place], [place] | [place], | | | | | specified | [address] | [place] [address] | | | | | Procedures | Phone: | Phone: | | | | | NM Gastric | [phone] | [phone] | | | | | Emptying | Fax: | Fax: | | | | | | [phone] | [phone] | +--------+--------+ + + + + Encounter Details +--------+ + + + + | Date | Type | Department | Care Team | Description | +--------+ + + + + | 04/02/ | Hospital | [facility] | Dio Yun | Gastroesophageal | | 2017 | Encounter | MED CTR NUCLEAR | MD Jesus [address] | reflux disease, | | | | MEDICINE [address] | ROSEMARY OLMEDO [address] | esophagitis presence | | | | [place], | [place], [place] | not specified | | | | [place] [address] | [address] | | | | | [phone] | [phone] | | | | | | | [...] | | | send order to [facility] | | | | | [...] | | | | | ([facility]) | | | | | [...] | 0 | 10/13/19 | | | Ukqpthfvsu-DMPN-Mtnk | mouth as needed. | | | 16 | 7 | | -Cod [id number] MG | | | | | | [...] | | | | | ([facility]) | | | | | [...] [place] | | | | | | [address] | | | | | | | | +--------+---------+ + + + | 11/24/ | Office | Cardiology | [place], | | | 2019 | Visit | | SINDHU Erickson [address] | | | | | | [place], | | | | | | [place] [address] | | | | | | [phone] | | | | | | | [...]
--- OUTSIDE RECORDS SUMMARY | ~2019-01-15 | XMS | Encounter Summary ---
Demographics + + + | Address | [address] | | | [place] [address] | + + + | Home Phone [...] Team Providers + +------+ + | Care Condenser Winder Name | Role | Phone | + [...] [address] | | | | | [place], | [place] | | | | | [place] [address] | [address] | | | | | [phone] | | | +--------+--------+ + + + [...] [place] | | | | | | [address] | | | | | | | | +--------+---------+ + + + | 11/24/ | Office | Cardiology | [place], | | | 2019 | Visit | | SINDHU Erickson [address] | | | | | | [place] | | | | | | [place] [address] | | | | | | [phone] | | | | | | | | +--------+---------+ + + + documented as of this encounter Visit Diagnoses Not on filedocumented in this encounter"
--- OUTSIDE RECORDS SUMMARY | ~2019-01-15 | XMS | Encounter Summary ---
Demographics + + + | Address | [address] | | | [place] [address] | + + + | Home Phone [...] Team Providers + +------+ + | Care Inclusion Special Education Teacher Name | Role | Phone | + +------+ + | Juan Cherry DO | PCP | | + +------+ + Reason for Visit + + + | Reason | Comments | + + + | Follow-up | | + + + | Palpitations | | + + + | Chest Pain | | + + + | Tachycardia | | + + + | Syncope | | + + + Encounter Details +--------+---------+ + + + | Date | Type | Department | Care Team | Description | +--------+---------+ + + + | 09/17/ | Office | [facility] | Ashlee Allison, | Palpitations | | 2018 | Visit | CARDIOLOGY [address] | [address] | (Primary Dx); | | | | [address] [place], | [facility], [place] | Paroxysmal atrial | | | | [place] [address] | [address] | tachycardia (HCC); | | | | [phone] | | Hypotension due to | | | | | | medication; | | | | | | Hypokalemia | +--------+---------+ + + + Social History [...] + | Blood Pressure | 90/58 | 09/17/2017 8:21 AM | | | | | PDT | | + + + + + | Pulse | 68 | 09/17/2017 8:21 AM | regular | | | | PDT | | + + + + + | Temperature | - | - | | + + + + + | Respiratory Rate | 10 | 09/17/2017 8:21 AM | | | | | PDT | | + + + + + | Oxygen Saturation | 94% | 09/17/2017 8:21 AM | room air | | | | PDT | | + + + + + | Inhaled Oxygen | - | - | | | Concentration | | | | + + + + + | Weight | 75.2 kg (165 lb 12.6 | 09/17/2017 8:21 AM | | | | oz) | PDT | | + + + + + | Height | 154.9 cm (5' 1") | 09/17/2017 8:21 AM | | | | | PDT | | + + + + + | Body Mass Index | 31.32 | 09/17/2017 8:21 AM | | | | | [...] of this encounter Patient Instructions Patient Instructions Ashlee Allison ARNP - 09/17/2017 8:15 AM PDT 1. Start taking potassium chloride 20 mEq once daily. 2. Have your lab drawn in 1 week, you do not need to be fasting. This will check your potas sium as well as your magnesium. 3. Our goal is to get your potassium up around 4, to see if your palpitations then can impr ove. 4. Return in 6 to 8 weeks, or sooner with concerns. documented in this encounter Progress Notes Ashlee Allison ARNP - 09/17/2017 8:15 AM PDTFormatting of this note might be different fr om the original. PATIENT NAME: Rosario Malik : 1965: AGE: 52 y.o. PRIMARY CARE: Juan Cherry DO CC: OUTPATIENT FOLLOW UP VISIT Date of Service: 09/17/2017 HISTORY OF PRESENT ILLNESS: Rosario Malik is a 52 y.o. female with a history of non-cardiac chest pain, inapprop riate atrial tachycardia, paroxysmal atrial tachycardia with palpitations, emphysema, hypoth yroidism obstructive sleep apnea and nocturnal hypoxemia and bipolar disorder. She is being seen today for follow up palpitations and hypotension. She was last seen 07/24/17 at which time the patient was asked to do a trial of decreasing her propranolol to avoid hypotension and try digoxin for rate control. Start a trial of digo shade 125 cg by mouth daily. She was advised patient to seek medical attention from PCP for issues such as diaphoresis and hot flashes. Propranolol was decreased to 10 mg once daily around 2:00 in the afternoon. Patient states that her palpitations usually happen around 4: 00 in the afternoon. Since that time, she called on 08/14/17 and was noticing that her pulse had gone up and was in the 120 to 130 beats per minute range at rest, and if she got up to move around then it c ould go up to 160 beats per minute. It made her feel very jittery and uncomfortable. She bekah t to emergency department and was given ativan and IV fluids and told she had sinus tachycar audrey. She was asked to take an extra propranolol 10 mg that day as long as her blood pressure was not too low. She was again seen in emergency department at [facility] on 08/30/17 for tachycardia, ECG showing sinus tachycardia with rate of 110 beats per minute, no acute f indings, her potassium was found to be low at 3.1, and blood pressure was high 144/111 mmHg, she was given one replacement dose of potassium, and had 48 hour Holter placed. She was aga in seen in emergency department at [facility] on 09/13/17 for tachyca rdia, with ECG showing sinus tachycardia with rate of 102 beats per minute, no ST-T wave rose nges. Her BMP showed her potassium was down to 3.0. She was given a couple dose of potassium and asked to follow up with cardiology. Today, she notes that her fibromyalgia acts up in the heat. She has had a poor energy level . She has not been very active. She enjoys gardening and sewing in her spare time. She ledezma s had chest discomfort that felt like a pinch last weekend, lasting about 5-10 min, no medic ation taken to relieve She has had shortness of breath with COPD She has dizziness with w ith rapid heart rate. She has noticed palpitations that have increased and have associated symptoms of dizziness, presyncope, shortness of breath. These were better for the 24 to 48 h ours after she had the extra potassium doses in her last emergency department visit. BiPap w orn nightly with no oxygen bled in She sleeps on 2 pillows at night, which is her norm, and does not wake up at night feeling short of breath. MEDICAL, SURGICAL, AND PERSONAL HISTORY Past Medical, [...] acute post-traumatic headache Hypotension due to medication CURRENT MEDICATIONS Current Outpatient Prescriptions Medication Sig Dispense Refill ADVAIR HFA 230-21 MCG/ACT inhaler albuterol-ipratropium (DUONEB) 2.5-0.5 mg/3 mL SOLN Take 3 mLs by nebulization every 4 hours as needed. 360 mL 5 digoxin (LANOXIN) 125 mcg tablet Take 1 tablet by mouth Daily. 30 tablet 3 fluticasone-salmeterol (ADVAIR HFA) 115-21 MCG/ACT inhaler [...] TABLET BY MOUTH TWICE DAILY 60 tablet 11 oxygen Inhale into the lungs continuous. 2.5 [...] takes this da rigoberto Respiratory Therapy Supplies [facility] Please provide patient with necessary CPAP supplies ( she did not specify, okay to send order as appropriate) Diagnosis Code(s)327.23 . Length of Need 99 months. Please send order to [facility]. 1 each 0 Respiratory Therapy Supplies MIS Change CPAP back to 11-14 cm H2O. All necessary suppl ies. No oxygen bleed in. Diagnosis Code(s)327.23. Length of Need: Lifetime. Please send orde r to [facility]. This is not a new order, [...] Review of Systems Constitutional: Positive for malaise/fatigue. HENT: Negative for nosebleeds. Respiratory: Positive for shortness of breath. Cardiovascular: Positive for chest pain, palpitations and orthopnea (Bi-Pap worn nightly). Negative for claudication and leg swelling. Gastrointestinal: Negative for heartburn. Neurological: Positive for dizziness, weakness and headaches. Negative for gait problem Positive for dental problems Endo/Heme/Allergies: Bruises/bleeds easily (bruise). Psychiatric/Behavioral: The patient does not have insomnia. OBJECTIVE: PHYSICAL EXAM BP 90/58 | Pulse 68 Comment: regular | Resp 10 | Ht 1.549 m (5' 1") | Wt 75.2 kg (165 lb 12.6 oz) | BMI 31.32 kg/m Physical Exam Constitutional: She is oriented to person, place, and time. She appears well-developed and well-nourished. Adult female in no acute distress, arrives alone Neck: Normal carotid pulses and no JVD present. Carotid bruit is not present. Cardiovascular: Normal rate, regular rhythm, S1 normal, S2 normal, normal heart sounds and intact distal pulses. PMI is not displaced. Exam reveals [...] no rhonchi. She has no rales. Abdominal: Soft. Normal [...] or performed during the hospital encounter of 09/13/17 ECG 12 lead Result Value Ref Range INTERPRETATION TEXT Poor data quality, interpretation may be adversely affected Probable Sinus tachycardia with short SC though P waves are difficult to identify due to p oor quality of tracing PAC's Possible Inferior infarct , age undetermined Nonspecific ST and T wave abnormality :cannot exclude ischemia Abnormal ECG When compared with ECG of 30-AUG-2017 11:40, premature supraventricular complexes are no longer present SC interval has decreased Possible Inferior infarct is now present Confirmed by RUSSELL PAUL, RAFA ([id number]) on 09/14/2017 9:47:53 AM LAB RESULTS reviewed during visit today primarily from [facility] and [facility]: LIPID Lab Results Component Value Date CHOLHDL 5.0 11/01/2015 LDLEX 143 (A) 11/01/2015 HDLEX 51 11/01/2015 TRIGEX 172 (A) 11/01/2015 CHOLEX 228 (A) 11/01/2015 CHEMISTRY Lab Results Component Value Date GLU 119 (H) 09/13/2017 GLUEX 108 03/18/2017 NA 138 09/13/2017 NAEX 138 03/18/2017 K 3.0 (L) 09/13/2017 KEX 3.8 03/18/2017 CL 105 09/13/2017 CLEX 104 03/18/2017 CO2 24 09/13/2017 CO2EX 25 03/18/2017 CALCIUM 8.8 09/13/2017 ALKPHOS 73 08/14/2017 AST 29 08/14/2017 ASTEX 19 03/18/2017 ALT 16 08/14/2017 ALTEX 13 03/18/2017 BILITOT 0.6 08/14/2017 CREA 0.77 09/13/2017 BUN 5 (L) 09/13/2017 EGFR >60 03/22/2013 EGFREX >60 03/18/2017 CREEX 0.8 03/18/2017 HEMATOLOGY Lab Results Component Value Date WBC 10.6 09/13/2017 WBCEX 11.2 (A) 03/18/2017 HGB 13.5 09/13/2017 HGBEX 12.5 03/18/2017 HCT 38.6 09/13/2017 HCTEX 37.3 03/18/2017 PLT 437 09/13/2017 PLTEX 417 (A) 03/18/2017 Lab Results Component Value Date TSH 0.36 10/09/2011 TSHEX 0.920 07/28/2013 BNP 22 08/14/2017 I reviewed records from [facility] for emergency department visit o n 08/14/17, 08/30/17, and 09/13/17 which is summarized in the HPI. IMAGING- I reviewed reports from [facility]: Xr Chest Ap Portable Result Date: 09/13/2017 XR CHEST AP PORTABLE 09/13/2017 6:40 AM HISTORY: TACHYCARDIA. COMPARISON: 08/14/2017 Findings : The bilateral lungs are clear with no evidence for pleural effusion or pneumothorax. Heart size is within normal limits. Pulmonary vasculature is within normal limits. Aorta is walter l. Mediastinum is unremarkable. No acute osseous or soft tissue abnormality identified. IMPR ESSION - No acute intrathoracic abnormality identified. Dictated and Signed by: Pb martinez MD Electronically signed: 09/13/2017 8:08 AM Above data and testing is reviewed this [...] and v entricular function done at the [facility]. LVEF 78%. C. Holter Monitor 08/16/13 [...] was 74 bpm during the 47:58 hour recordi ng, there were very rare PVC's (53 total, mean 1.1/hr) with 1 couplet and no triplets, there were occasional PAC's (2261 total, mean 47.1/hr), there were 364 episodes of sinus bradycar audrey the longest was 159 beats on Friday 08:41. The minimum rate was 48 bpm on Friday 0 5:21, there were 59 episodes of sinus tachycardia, the longest was 749 beats on Friday 15:5 5, the maximum rate was 180 bpm on Friday 15:41 (mowing the lawn from 15:30 to 15:54), diar y was returned with no rhythm changes corresponding with symptoms noted except for tachycard ia when patient mowed the lawn, by Jared Mcdonough MD. H. Seen in emergency department 08/14/17, 08/30/17, and 09/13/17 for palpitations. Also found to be hypokalemic the last two visits, and given doses of potassium each time. G. Today, 09/17/2017, she notes her palpitations did improve for up to 2 days after her las t dose of potassium as it was a higher dose and she ended up getting 2 of them. She notes t hat she had a better energy level during that time too. After the first couple days ago she started getting tired again and having more palpitations and is back to normal now. She is still taking her propranolol once daily and her digoxin once daily. Will work on getting h er potassium up, preferably around 4, and then reevaluate how her palpitations are doing at that time. 2. Hypotension secondary to medication: A. Her propranolol was decreased 06/2017 due to hypotension. Today, 09/17/2017, her blood pressure is noted to be improved on the lower dose of proprano lol. However her palpitations are worsened, but this appears to be primarily secondary to h ypokalemia. 3. Hypokalemia: A. Noted on labs in emergency department 08/30/17 and 09/13/17, and associated with worsening palpitations. She has had intermittent doses of potassium chloride during those events to b oost it and had discussion of eating high potassium diet. She notes that she had problems with hypokalemia about 3 years ago as well. She took an o ral potassium replacement for a while. This is likely multifactorial, and primarily a side effect of her prednisone. Today, 09/17/2017, her last potassium was 3. Will start her on a daily potassium supplemen t. I actually would like to see her potassium up around 4 to see if this can improve her pa lpitations. 4. Non-cardiac chest pain: A. She has had complaint of sharp chest pain that is aggravated whe n she takes deep breath and sits up. Symptom is better when she lays down. She also comp lained of the trouble breathing on exertion. She was seen at the ED of [facility] 3 weeks ago and again 1 [...] othly contoured coronary arteries, LVEF 60%. D. Today, 09/17/2017, she still occasionally has atypical chest pain symptoms. She attributes this to her fibromyalgia. 3. Emphysema/COPD: Not otherwise addressed today 09/17/2017. A. She is on oxygen. 4. Hypothyroidism. Not otherwise addressed today 09/17/2017. 5. Obstructive sleep apnea and nocturnal hypoxemia. Not otherwise addressed today 09/17/2017 . A. She is utilizing BiPAP with no oxygen. 6. Pre-diabetes: Not otherwise addressed today 09/17/2017. A. She is on metformin. 7. Fibromyalgia per the patient report. Not otherwise addressed today 09/17/2017. A. She notes that taking mag ox in the past "flared up" her fibromyalgia. Will be checking magnesium due to her hypokalemia, and if it is also low, will look at trying an alternate f ormation of potassium. PLAN: 1. She is started on potassium chloride 20 mEq daily. 2. She will have lab for BMP and magnesium level in 1 week. Will further adjust her potassi um supplement as needed to reach goal of potassium level of at least 4. 3. She will follow up in 6 to 8 weeks for office visit, or sooner with concerns. Will reass ess her palpitations at that time once her potassium level is normalized. Sonia Vásquez MA-R, am acting as a scribe on behalf of, and in the presence of SINDHU Shafer. - GUILLERMINA Plasencia 09/17/2017 8:36 Ashlee Vásquez ARNP, personally performed the services described in this documentation, as scribed in my presence and it is both accurate and complete. SINDHU Mota 2017 8:52 Portions of this chart may have been created with [employer] voice recognition software. Occasi onal wrong-word or sound-alike substitutions may have occurred due to the inherent cárdenas itations of voice recognition software. Please read the chart carefully and recognize, using context, where these substitutions have occurred. documented in this e ncounter Plan of Treatment +--------+---------+ + + + | Date | Type | Specialty | Care Team | Description | +--------+---------+ + + + | 03/01/ | Office | Pulmonology | Mukul Clark MD | | | 2019 | Visit | | [address] | | | | | | [place] | | | | | | [address] | | | | | | | | +--------+---------+ + + + | 11/24/ | Office | Cardiology | [place], | | | 2019 | Visit | | SINDHU Erickson [address] | | | | | | [address] [place], | | | | | | [place] [address] | | | | | | [phone] | | | | | | | | +--------+---------+ + + + documented as of this encounter Results Magnesium (11/11/2017 8:55 AM PDT) + +-------+ + + + [...] [address] | [place] | [phone] | | [facility] | | [address] | | | - LABORATORY | | | | + + + + + Basic Metabolic Panel (11/11/2017 8:55 AM PDT) + + + + + [...] | | | | mmol/L | [facility] | | | | | | MEDICAL | | | | | | CENTER - | | | | | | LABORATORY | | + + + + + + | Cl | 102 | 98 - 109 mmol/L | [facility] [...] + + + + | Glucose | 164 (H) | 70 - 109 mg/dL | [...] 0.79 | 0.60 - 1.30 | [facility] | | | | | mg/dL | [facility] | | | | | | MEDICAL | | | | | | CENTER - | | | | | | LABORATORY | | + + + + + + | eGFR if not | >60Comment: GLOMERULAR | >=60 | [facility] | | | | FILTRATION | mL/min/1.73m2 | [facility] | | | [place] | RATE,ESTIMATED | | MEDICAL | | | | mL/min/1.89w9Qrev than | | CENTER - | | [...] + + + + | BUN/Creatin | 6.3 | | [facility] | | | ine [...] [address] | [place] | [phone] | | [facility] | | [address] | | | - LABORATORY | | | | + + + + + documented in this encounter Visit Diagnoses + + | Diagnosis | + + | Palpitations - Primary | + + | Paroxysmal atrial tachycardia (HCC) Paroxysmal supraventricular tachycardia | + + | Hypotension due to medication | + + | Hypokalemia Hypopotassemia | + + documented in this encounter
--- OUTSIDE RECORDS SUMMARY | ~2019-01-15 | XMS | Encounter Summary ---
Demographics + + + | Address | [address] | | | [place] [address] | + + + | Home Phone [...] + +------+ + | Care Senior Financial Accountant Name | Role | Phone | + [...] [place] | call) | | | | [place], | [place] | | | | | [place] [address] | [address] | | | | | [phone] | | | +--------+ + + + [...] [place] | | | | | | [id number] | | | | | | | | +--------+---------+ + + + | 11/24/ | Office | Cardiology | [place], | | | 2019 | Visit | | SINDHU Erickson [address] | | | | | | [place] | | | | | | [place] [address] | | | | | | [phone] | | | | | | | | +--------+---------+ + + + documented as of this encounter Visit Diagnoses Not on filedocumented in this encounter"
--- OUTSIDE RECORDS SUMMARY | ~2019-01-15 | XMS | Encounter Summary ---
Demographics + + + | Address | [address] | | | [place] [address] | + + + | Home Phone [...] Team Providers + +------+ + | Care Beet Topper Name | Role | Phone | + [...] | (Primary Dx) | | | | [place], | [address] | | | | | [place] [address] | | | | | | [phone] | | | +--------+ + + + [...] [place] | | | | | | [address] | | | | | | | | +--------+---------+ + + + | 11/24/ | Office | Cardiology | [place], | | | 2019 | Visit | | SINDHU Erickson [address] | | | | | | [place], | | | | | | [place] [address] | | | | | | [phone] | | | | | | | [...]
--- OUTSIDE RECORDS SUMMARY | ~2019-01-15 | XMS | Encounter Summary ---
Demographics + + + | Address | [address] | | | [place] [address] | + + + | Home Phone [...] Team Providers + +------+ + | Care Cobol Programmer Name | Role | Phone | [...] [address] | | | | | [place], | [place], | | | | | [place] [address] | [place] [address] | | | | | [phone] | [phone] | | | | | | | [...] [place], | | | | | | [place] [address] | | | | | | [phone] | | | | | | | | +--------+---------+ + + + documented as of this encounter Visit Diagnoses Not on filedocumented in this encounter"
--- OUTSIDE RECORDS SUMMARY | ~2019-01-15 | XMS | Encounter Summary ---
Demographics + + + | Address | [address] | | | [place] [address] | + + + | Home Phone [...] Team Providers + +------+ + | Care Prospecting Observer Name | Role | Phone | + [...] + + | 10/16/ | Hospital | [facility] | Flores, | Paroxysmal atrial | | 2017 | Encounter | MED CTR NUCLEAR | SINDHU Erickson [address] | tachycardia (HCC); | | | | MEDICINE [address] | [place], | Palpitations | | | | [place], | [place] [address] | | | | | [place] [address] | [phone] | | | | | [phone] | | | +--------+ + + + [...] [facility]. | | | | | | | [...] [place] | | | | | | [id number] | | | | | | | | +--------+---------+ + + + | 11/24/ | Office | Cardiology | Flores, | | | 2019 | Visit | | SINDHU Erickson [address] | | | | | | [place], | | | | | | [place] [address] | | | | | | [phone] | | | | | | | [...] Juan | | | DO CAMILLE Cherry GERMAN TUTOR: Jared Mcdonough MD | | | 48-HOUR [...] | | Signed by: Jared Mcdonough MD [facility] 10/18/2016, | | | 10:51 [...]
--- OUTSIDE RECORDS SUMMARY | ~2019-01-15 | XMS | Encounter Summary ---
Demographics + + + | Address | [address] | | | [place] [address] | + + + | Home Phone [...] Team Providers + +------+ + | Care Van Loader Name | Role | Phone | + [...] [address] | | | | | [place], | [place], | | | | | [place] [address] | [place] [address] | | | | | [phone] | [phone] | | | | | | | [...] | | | | | | [place] [address] | | | | | | [phone] | | | | | | | | +--------+---------+ + + + documented as of this encounter Visit Diagnoses Not on filedocumented in this encounter"
--- OUTSIDE RECORDS SUMMARY | ~2019-01-15 | XMS | Encounter Summary ---
Demographics + + + | Address | [address] | | | [place] [address] | + + + | Home Phone [...] Team Providers + +------+ + | Care Sharepoint Designer Developer Name | Role | Phone | [...] + + | 11/03/ | Telephone | [facility] | Kevin Sandoval, | Shortness of Breath | | 2013 | | PULMONARY [address] | MD [address] | | | | | [place], | [place] | | | | | [place] [address] | [address] | | | | | [phone] | | | +--------+ + + + [...] | | | | | | [place] [address] | | | | | | [phone] | | | | | | | | +--------+---------+ + + + documented as of this encounter Visit Diagnoses Not on filedocumented in this encounter"
--- OUTSIDE RECORDS SUMMARY | ~2019-01-15 | XMS | Encounter Summary ---
Demographics + + + | Address | [address] | | | [place] [address] | + + + | Home Phone [...] Team Providers + +------+ + | Care Oracle Pl Sql Developer Name | Role | Phone | + +------+ + | Juan Cherry DO | PCP | | + +------+ + Encounter Details +--------+ + + + + | Date | Type | Department | Care Team | Description | +--------+ + + + + | 02/21/ | Abstract | [facility] | Flores, | | | 2013 | | CARDIOLOGY [address] | SINDHU Erickson [address] | | | | | [place], | [place], | | | | | [place] [address] | [place] [address] | | | | | [phone] | [phone] | | | | | | | [...] [place] | | | | | | [address] | | | | | | | | +--------+---------+ + + + | 11/24/ | Office | Cardiology | Flores, | | | 2019 | Visit | | SINDHU Erickson [address] | | | | | | [place] | | | | | | [place] [address] | | | | | | [phone] | | | | | | | | +--------+---------+ + + + documented as of this encounter Visit Diagnoses Not on filedocumented in this encounter"
--- OUTSIDE RECORDS SUMMARY | ~2019-01-15 | XMS | Encounter Summary ---
Demographics + + + | Address | [address] | | | [place] [address] | + + + | Home Phone [...] Team Providers + +------+ + | Care Brooch Maker Novelty Name | Role | Phone | + +------+ + | Juan Cherry DO | PCP | | + +------+ + Encounter Details +--------+ + + + + | Date | Type | Department | Care Team | Description | +--------+ + + + + | 09/20/ | Orders Only | [facility] | Provider, | | | 2018 | | SYSTEM GENERIC OP | MD [address] | | | | | CONVERSION [address] | [place]. | | | | | [address] [place], [place] | [place] [address] | | | | | [address] | | | | | | [phone] | | | +--------+ + + + [...] [place] | | | | | | [address] | | | | | | | | +--------+---------+ + + + | 11/24/ | Office | Cardiology | Flores, | | | 2020 | Visit | | SINDHU Erickson [address] | | | | | | [place], | | | | | | [place] [address] | | | | | | [phone] | | | | | | | | +--------+---------+ + + + documented as of this encounter Visit Diagnoses Not on filedocumented in this encounter"
--- OUTSIDE RECORDS SUMMARY | ~2019-01-15 | XMS | Encounter Summary ---
Demographics + + + | Address | [address] | | | [place] [address] | + + + | Home Phone [...] Providers + +------+ + | Care Rn Admission Name | Role | Phone | + [...] + + | 05/07/ | Telephone | [facility] | Andriy Weber | Other (Out of | | 2017 | | [address] | MD [address] | medication) | | | | [place] | [address] [facility] | | | | | [address] | [place] [address] | | | | | [phone] | [phone] | | | | | | | [...] [place] | | | | | | [address] | | | | | | | | +--------+---------+ + + + | 11/24/ | Office | Cardiology | Flores, | | | 2019 | Visit | | SINDHU Erickson [address] | | | | | | [place], | | | | | | [place] [address] | | | | | | [phone] | | | | | | | | +--------+---------+ + + + documented as of this encounter Visit Diagnoses Not on filedocumented in this encounter"
--- OUTSIDE RECORDS SUMMARY | ~2019-01-15 | XMS | Encounter Summary ---
Demographics + + + | Address | [address] | | | [place] [address] | + + + | Home Phone [...] Team Providers + +------+ + | Care Snath Handle Assembler Name | Role | Phone | + +------+ + | Juan Cherry DO | PCP | | + +------+ + Encounter Details +--------+ + + + + | Date | Type | Department | Care Team | Description | +--------+ + + + + | 06/18/ | Hospital | [facility] | Kevin Sandoval, | COPD (chronic | | 2013 | Encounter | MED CTR XRAY [address] | MD [address] | obstructive | | | | [place] | [place] | pulmonary disease) | | | | [place] [address] | [address] | | | | | [phone] | | | +--------+ + + + [...] | | | | send order to [facility] | | | | [...] [place] | | | | | | [address] | | | | | | | | +--------+---------+ + + + | 11/24/ | Office | Cardiology | Flores, | | | 2019 | Visit | | SINDHU Erickson [address] | | | | | | [place], | | | | | | [place] [address] | | | | | | [phone] | | | | | | | [...] + | MISCELLANEOUS LAB | | | [phone] | + +---------+ + + | MISCELANIOUS LAB | | | [phone] | + +---------+ + + documented in this encounter Visit Diagnoses + + | Diagnosis | + + | COPD (chronic obstructive pulmonary disease) Chronic airway obstruction, not | | elsewhere classified | + + documented in this encounter"
--- OUTSIDE RECORDS SUMMARY | ~2019-01-15 | XMS | Encounter Summary ---
Demographics + + + | Address | [address] | | | [place] [address] | + + + | Home Phone [...] + +------+ + | Care Internet Marketing Coordinator Name | Role | Phone | [...] shortnes of breath) | | | | [place], | | | | | | [place] [address] | | | | | | [phone] | | | +--------+ + + + [...] [place] | | | | | | [address] | | | | | | | | +--------+---------+ + + + | 11/24/ | Office | Cardiology | [place], | | | 2019 | Visit | | SINDHU Erickson [address] | | | | | | [place] | | | | | | [place] [address] | | | | | | [phone] | | | | | | | | +--------+---------+ + + + documented as of this encounter Visit Diagnoses Not on filedocumented in this encounter"
--- OUTSIDE RECORDS SUMMARY | ~2019-01-15 | XMS | Encounter Summary ---
Demographics + + + | Address | [address] | | | [place] [address] | + + + | Home Phone [...] Team Providers + +------+ + | Care Cant Gang [place] Name | Role | Phone | + +------+ + | Juan Cherry DO | PCP | | + +------+ + Encounter Details +--------+---------+ + + + | Date | Type | Department | Care Team | Description | +--------+---------+ + + + | 02/28/ | Surgery | [facility] | Jared Mcdonough, | [facility] with Radial | | 2014 | | MED CTR CV INTRA OP | MD [address] | approach | | | | [address] | [address], | | | | | [place], [place] | [place] [address] | | | | | [address] | [phone] | | | | | [phone] | | | +--------+---------+ + + + [...] | | | | | order to [facility]. | | | | | + [...] | | | | | | [place] [address] | | | | | | [phone] | | | | | | | [...] RECORD NUMBER: | MEDICAL CENTER | | [id number] DATE OF PROCEDURE: 02/28/2014 SCIENCE PROFESSOR: | - IMAGING | | Jared Mcdonough [...] CATHETERIZATION and CORONARY ANGIOGRAPHYPATIENT | | NAME/: Rsoario Malik, (1965) OF | | PROCEDURE: 02/28/2014PRIMARY PREPRESS PROOFER: Jared Mcdonough MD PROCEDURES | | PERFORMED:Coronary [...] [address] | [place] | [phone] | | [facility] | | [address] | | | - IMAGING | | [...] | 0.94 | 0.60 - 1.30 | [facility] | | | | | mg/dL | [facility] | | | | | | MEDICAL | | | | | | CENTER - | | | | | | LABORATORY | | + + + + + + | eGFR if not | >60Comment: GLOMERULAR | >=60 | [facility] | | | | [facility]TRATION | mL/min/1.73m2 | [facility] | | | JORDANIAN | RATE,ESTIMATED | | MEDICAL | | | | mL/min/1.41o3Iosp than | | CENTER - | | [...] + | [facility] | [address] | [place] | [phone] | | [facility] | | [address] | | | - LABORATORY | | | | + + + + + | [facility] | [address] | [place], [place] | | | [facility] | | [address] | | | - LABORATORY | | [...]
--- OUTSIDE RECORDS SUMMARY | ~2019-01-15 | XMS | Encounter Summary ---
Demographics + + + | Address | [address] | | | [place] [address] | + + + | Home Phone [...] Team Providers + +------+ + | Care Voice Engineer Name | Role | Phone | [...] monitoring (Primary | | | | [address] [facility], | address | Dx) | | | | [address] [place] | | | | | | [place] [address] | | | | | | [phone] | | | +--------+ + + + [...] [place] | | | | | | [address] | | | | | | | | +--------+---------+ + + + | 11/24/ | Office | Cardiology | Flores, | | | 2019 | Visit | | SINDHU Erickson [address] | | | | | | [place], | | | | | | [place] [address] | | | | | | [phone] | | | | | | | [...] | | | | mg/dL | [facility] | | | | | | MEDICAL | | | | | | CENTER - | | | | | | LABORATORY | | + +-------+ + + + | eGFR if not | >60 | >=60 | [facility] | | | | | mL/min/1.73m2 | [facility] | | | [place] | | | MEDICAL | | | [...] + | [facility] | [address] | [place] | [phone] | | [facility] | | [address] | | | - LABORATORY | | | | + + + + + | [facility] | [address] | [place] | | | [facility] | | [address] | | | - LABORATORY | | [...] + | [facility] | [address] | [place], [place] | [phone] | | [facility] | | [address] | | | - LABORATORY | | | | + + + + + | [facility] | [address] | [place], [place] | | | [facility] | | [address] | | | - LABORATORY | | | | + + + + + documented in this encounter Visit Diagnoses + + | Diagnosis | + + | Therapeutic drug monitoring - Primary Encounter for therapeutic drug monitoring | + + documented in this encounter"
--- OUTSIDE RECORDS SUMMARY | ~2019-01-15 | XMS | Encounter Summary ---
Demographics + + + | Address | [address] | | | [place] [address] | + + + | Home Phone [...] Team Providers + +------+ + | Care Plush Dresser Name | Role | Phone | + [...] [address] | | | | | [address], | [place] | | | | | [place] [address] | [address] | | | | | [phone] | | | +--------+--------+ + + + [...] [place] | | | | | | [address] | | | | | | | | +--------+---------+ + + + | 11/24/ | Office | Cardiology | Flores, | | | 2019 | Visit | | SINDHU Erickson [address] | | | | | | [place], | | | | | | [place] [address] | | | | | | [phone] | | | | | | | | +--------+---------+ + + + documented as of this encounter Visit Diagnoses Not on filedocumented in this encounter"
--- OUTSIDE RECORDS SUMMARY | ~2019-01-15 | XMS | Encounter Summary ---
Demographics + + + | Address | [address] | | | [place] [address] | + + + | Home Phone [...] Team Providers + +------+ + | Care Paymaster Of Purses Name | Role | Phone | + [...] + + | 06/18/ | Office | [facility] | Kevin Sandoval, | COPD (chronic | | 2013 | Visit | PULMONARY [address] | MD [address] | obstructive | | | | [place], | [place], [place] | pulmonary disease) | | | | [place] [address] | [address] | (Primary Dx); GARRY | | | | [phone] | | (obstructive sleep | | | [...] another prednisone taper. On [facility]. The patient was socially seen in [...] [facility]) 10/28/2012 Overview: Managed by [facility] along with hypothyroidism Osteoarthritis hay Past Surgical History Past Surgical History Procedure Date Hammertoe repair right sided Hiatal hernia repair Hiatal hernia Kirk and bso Ovarian cysts, not cancer Colonoscopy 03/[address] [facility] Family History: Family History Problem Relation Age [...] d 99 months. Please send order to [facility] Disp: 1 each, Rfl: 0 Respiratory Therapy Supplies MISC, Change CPAP back to 11-14 cm H2O. All necessary supplies . No oxygen bleed in. Diagnosis Code(s)327.23. Length of Need: Lifetime. [facility]. This is not a [...] | | | | | | [place] [address] | | | | | | [phone] | | | | | | | [...] + | MISCELLANEOUS LAB | | | [phone] | + +---------+ + + | MISCELANIOUS LAB | | | [phone] | + +---------+ + + documented in [...]
--- OUTSIDE RECORDS SUMMARY | ~2019-01-15 | XMS | Encounter Summary ---
Demographics + + + | Address | [address] | | | [place] [address] | + + + | Home Phone [...] Team Providers + +------+ + | Care Ncr Operator Name | Role | Phone | [...] + | 06/11/ | Telephone | [facility] | Andriy Weber | Appointment | | 2018 | | [address] | MD [address] | | | | | [place] | THOM [facility] | | | | | [address] | [place] [address] | | | | | [phone] | | | | | | | [...] [place] | | | | | | [address] | | | | | | | | +--------+---------+ + + + | 11/24/ | Office | Cardiology | [place], | | | 2019 | Visit | | SINDHU Erickson [address] | | | | | | [place] | | | | | | [place] [address] | | | | | | [phone] | | | | | | | | +--------+---------+ + + + documented as of this encounter Visit Diagnoses Not on filedocumented in this encounter"
--- OUTSIDE RECORDS SUMMARY | ~2019-01-15 | XMS | Encounter Summary ---
Demographics + + + | Address | [address] | | | [place] [address] | + + + | Home Phone [...] Team Providers + +------+ + | Care Fiber Optics Supervisor Name | Role | Phone | [...] Provider Unknown | | | | | [place], [place] | [phone] | | | | | [address] | | | | | | [phone] | | | +--------+ + + + [...] | | | | | | [facility]. | | | | | [...] | | | | [place] [facility] | | | | | | [address] | | | | | | | | +--------+---------+ + + + | 11/24/ | Office | Cardiology | [place], | | | 2019 | Visit | | SINDHU Erickson [address] | | | | | | [place], | | | | | | [place] [address] | | | | | | [phone] | | | | | | | | +--------+---------+ + + + documented as of this encounter Procedures + +--------+ + + + | Procedure Name | Priori | Date/Time | Associated Diagnosis | Comments | | | ty | | | | + +--------+ + + + | XR CHEST 1 VIEW | Routin | 05/23/2013 | | Results for this | | | e | 1:12 AM | | procedure are in the | | | | PDT | | results section. | + +--------+ + + + documented in this encounter Results XR Chest 1 Vw (05/23/2013 1:12 AM PDT) + + | Specimen [...]
--- OUTSIDE RECORDS SUMMARY | ~2019-01-15 | XMS | Encounter Summary ---
Demographics + + + | Address | [address] | | | [place] [address] | + + + | Home Phone [...] Team Providers + +------+ + | Care Flamer Sealer Name | Role | Phone | + [...] | | | | [facility] | [address] | [address] | | | | | EXERCISE | [place], | [place] | | | | | | [place] [address] | [place], [place] | | | | | | Phone: | [address] | | | | | | [phone] | Phone: | | | | | | Fax: | [phone] | | | | | | [phone] | Fax: | | | | | | | [phone] | +--------+--------+ + + + + Encounter Details +--------+---------+ + + + | Date | Type | Department | Care Team | Description | +--------+---------+ + + + | 06/25/ | Office | [facility] | Jared Mcdonough, | Chronic obstructive | | 2017 | Visit | MED CTR CARDIAC | [address] | pulmonary disease, | | | | REHABILITATION [address] [place], | unspecified COPD | | | | [address] [place] | [place] [address] | type (HCC) (Primary | | | | [place] [address] | [phone] | Dx) | | | | [phone] | | | +--------+---------+ + + + [...] of this encounter Progress Nima Plunkett-Tricia Crawley, VISUAL EFFECTS ARTIST - 06/25/2016 1:10 PM PDT [facility] CARDIAC REHABILITATION [address] [facility] [address] Cardiac Rehab Date: 06/25/2016 Patient Information Patient [...] | | | | | [place] [address] | | | | | | [phone] | | | | | | | | +--------+---------+ + + + documented as of this encounter Visit Diagnoses + + | Diagnosis | + + | Chronic obstructive pulmonary disease, unspecified COPD type (HCC) - Primary | + + documented in this encounter"
--- OUTSIDE RECORDS SUMMARY | ~2019-01-15 | XMS | Encounter Summary ---
Demographics + + + | Address | [address] | | | [place] [address] | + + + | Home Phone [...] Team Providers + +------+ + | Care Ground Equipment Mechanic Name | Role | Phone | + +------+ + | Juan Cherry DO | PCP | | + +------+ + Encounter Details +--------+ + + + + | Date | Type | Department | Care Team | Description | +--------+ + + + + | 01/20/ | Hospital | [facility] | Guru Cárdenas, | | | 2011 | Encounter | MED CTR EMERGENCY | [address] | | | | | CENTER [address] | [facility] [place] | | | | | [place], [place] | [place] [address] | | | | | [address] | [phone] | | | | | [phone] | | | | | | | Ozzy Aponte | | | | | | MD Delio [address] | | | | | | [address] [place] | | | | | | [place] [address] | | | | | | [phone] | | | | | | | [...] [place] | | | | | | [address] | | | | | | | | +--------+---------+ + + + | 11/24/ | Office | Cardiology | [place], | | | 2019 | Visit | | SINDHU Erickson [address] | | | | | | [place] | | | | | | [place] [address] | | | | | | [phone] | | | | | | | [...] | [facility] Diagnostic Imaging | [place] | | Department [address] [facility] | [facility] | | [ rep [address]] [ rep [facility] | | [facility]] Signed | - IMAGING | | | | | Patient Name: JADYN SCHMITZ | | | Physician: MARY : 1965 Age: 47 Sex: F Unit | | | #: [id number] Exam Date: 01/21/12 Location: | | | EDU Report #: [id number] Page: | | | %(RAD)RES..mtdd.print.filter("pg") of %(RAD) | | | RES..mtdd.print.filter("tpg") | | | | | | Accession Number: [id number] | | | RIGHT FOOT CLINICAL HISTORY: [...] Transcribed Date/Time: 01/21/2012 09:32 | | | Senior Business Consultant: ChrisARELIS <<Signature on File>> | | | | | | Cesar Ren MD01/21/12 6338 <Electronically signed by | | | Cesar Ren MD> Cesar Ren MD 01/21/12 | | | 0944 Senior Business Consultant: Neal Hehcsvjcdycpz93/27/12 0932 | | | | | + + + + + + + + | Performing | Address | City/State/Zipcode | Phone Number | | Organization | | | | + + + + + | [facility] | [address] | [place] | [phone] | | [facility] | | [address] | | | - IMAGING | | | | + + + + + documented in this encounter Visit Diagnoses Not on filedocumented in this encounter
--- OUTSIDE RECORDS SUMMARY | ~2019-01-15 | XMS | Encounter Summary ---
Demographics + + + | Address | [address] | | | [place] [address] | + + + | Home Phone [...] Team Providers + +------+ + | Care Pediatric Dentist Name | Role | Phone | + +------+ + | Juan Cherry DO | PCP | | + +------+ + Reason for Visit + + + | Reason | Comments | + + + | Follow-up | | + + + | Results | Left heart catheterization, 02/28/2014 | + + + | Coronary Artery | | | Disease | | + + + | Palpitations | | + + + | Tachycardia | Atrial | + + + Encounter Details +--------+ + + + + | Date | Type | Department | Care Team | Description | +--------+ + + + + | 03/17/ | Off-Site | [facility] [place] | Jared Mcdonough, | Other chest pain | | 2015 | Visit | CARDIOLOGY [address] | [address] [place] | (Primary Dx) | | | | [place], | [place], | | | | | [place] [address] | [place] [address] | | | | | [phone] | [phone] | | | | | | | [...] + | Blood Pressure | 90/60 | 03/17/2014 10:49 AM | right arm | | | | PST | | + + + + + | Pulse | 94 | 03/17/2014 10:49 AM | regular | | | | PST | | + + + + + | Temperature | - | - | | + + + + + | Respiratory Rate | 18 | 03/17/2014 10:49 AM | | | | | PST | | + + + + + | Oxygen Saturation | - | - | | + + + + + | Inhaled Oxygen | - | - | | | Concentration | | | | + + + + + | Weight | 73 kg (161 lb) | 03/17/2014 10:49 AM | | | | | PST | | + + + + + | Height | 157.5 cm (5' 2") | 03/17/2014 10:49 AM | | | | | PST | | + + + + + | Body Mass Index | 29.45 | 03/17/2014 10:49 AM | | | | | PST [...] this encounter Progress Jared Flynn MD - 03/17/2014 10:49 AM PSTFormatting of this note might be different f rom the original. PATIENT NAME: Rosario Malik : 1965: AGE: 49 y.o. PRIMARY CARE: Juan Cherry DO OUTPATIENT FOLLOW UP VISIT Date of Service: 03/17/2014 HISTORY OF PRESENT ILLNESS: Rosario Malik is a 49 y.o. female with a history of non-cardiac chest pain, inapprop riate atrial tachycardia, paroxysmal atrial tachycardia with palpitations, emphysema, hypoth yroidism obstructive sleep apnea and nocturnal hypoxemia and bipolar disorder. She is being seen today for follow up chest pain. She was last seen 02/22/2014 at which time, patient was scheduled for left heart cath becau se of chest pain and abnormal stress test. Since that time, she has a normal angiogram on 02/28/14. Today, patient appear anxious and reports that she has been having fast heart rate Up to 1 50 bpm. She has occasional resting chest pain. Patient denies breathlessness. There is occ asional Palpitation without dizziness or lightheadedness. There is no ankle or leg swellin g. Patient can sleep on one pillow at night without difficulty breathing. MEDICAL, SURGICAL, AND PERSONAL HISTORY Past [...] Emphysema Migraine Pericarditis COPD exacerbation Chest pain Abnormal [...] by mouth Daily. Respiratory Therapy Supplies MISC Incentive spirometer. Please provide instructions in use. Dx: 848.8 MADELEINE: 3 months 1 each 99 Respiratory Therapy Supplies MISC Please provide patient with necessary CPAP supplies ( she did not specify, okay to send order as appropriate) Diagnosis Code(s)327.23 . Length of Need 99 months. Please send order to [facility]. 1 each 0 Respiratory Therapy Supplies MISC Change CPAP back to 11-14 cm H2O. All necessary suppl ies. No oxygen bleed in. Diagnosis Code(s)327.23. Length of Need: Lifetime. Please send orde r to [facility]. This is not a new [...] attacks ROS ROS OBJECTIVE: PHYSICAL EXAM BP 90/60 | Pulse 94 | Resp 18 | Ht 1.575 m (5' 2") | Wt 73.029 kg (161 lb) | BMI 29.44 kg/m 2 Physical Exam Constitutional: She appears well-developed and well-nourished. No distress. Female individual without distress. Neck: Normal carotid pulses, no hepatojugular [...] 343 07/14/2013 HGBEX 14.5 05/10/2013 ASSESSMENT: 1. Non-cardiac chest pain A. Echocardiogram 01/14/2014, shows [...] f 60%, systemic blood pressure is normal. D.Today, patient appear anxious and reports that she has been having fast heart rate Up t o 150 bpm. She has occasional resting chest pain. Patient denies breathlessness. There is occasional Palpitation without dizziness or lightheadedness. She continues to have severe fatigue although she is physically very inactive. Patient h as baseline dyspnea from her COPD. She is in a class II of [place] Heart Association functi onal class. There is no signs and symptoms of overt congestive heart failure. There are no f luid retention on physical examination. 2. Palpitation secondary to the paroxysmal atrial tachycardia/inappropriate sinus tachycard ia A. She has been in her usual [...] not gone back to see Dr. Ding. 3. Emphysema/COPD 4. Hypothyroidism 5. Obstructive sleep apnea and nocturnal hypoxemia A. she is using CPAP machine and nighttime oxygen supplement. PLAN: 1. Patient is reassured in regard to a good cardiac prognosis. 2. I recommend regular walking 30 min, Yoga, choosing healthy choices of diet and weight r eduction. 3. F/U in 6 months. Electronically signed by: Jared Mcdonough MD [facility] 03/17/2014 Portions of this chart may have been created with [employer] voice recognition software. Occasi onal wrong-word or [...] [place] | | | | | | [address] | | | | | | | | +--------+---------+ + + + | 11/24/ | Office | Cardiology | [place], | | | 2020 | Visit | | SINDHU Erickson [address] | | | | | | [place], | | | | | | [place] [address] | | | | | | [phone] | | | | | | | | +--------+---------+ + + + documented as of this encounter Visit Diagnoses + + | Diagnosis | + + | Other chest pain - Primary | + + documented in this encounter
--- OUTSIDE RECORDS SUMMARY | ~2019-01-15 | XMS | Encounter Summary ---
Demographics + + + | Address | [address] | | | [place] [address] | + + + | Home Phone [...] +------+ + | Care Assistant Professor Of Nursing Name | Role | Phone | + +------+ + PCP | Unavailable | + +------+ + Encounter Details +--------+ + + + + | Date | Type | Department | Care Team | Description | +--------+ + + + + | 08/09/ | Hospital | [facility] | [place], | | | 2009 | Encounter | MED CTR EMERGENCY | Ozzy Kim MD [address] | | | | | [place] [address] | [address] [facility] | | | | | [place], [place] | [place] [address] | | | | | [address] | [phone] | | | | | [phone] | | | +--------+ + + + [...] [place] | | | | | | [id number] | | | | | | | | +--------+---------+ + + + | 11/24/ | Office | Cardiology | [place], | | | 2019 | Visit | | SINDHU Erickson [address] | | | | | | [place] | | | | | | [place] [address] | | | | | | [phone] | | | | | | | | +--------+---------+ + + + documented as of this encounter Visit Diagnoses Not on filedocumented in this encounter"
--- OUTSIDE RECORDS SUMMARY | ~2019-01-15 | XMS | Encounter Summary ---
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 [place] [address]. All righ ts reserved. This information is not intended as a substitute for professional medical care. Always follow your healthcare professional's instructions. documented in this encounter Progress Notes Shashi Segovia MD - 06/23/2014 8:20 AM PDTFormatting of this note might be differen t from the original. Shashi Segovia MD [address] [place] [address], [address] [place] [address] Neurology Outpatient ProgressNote Patient ID: Ms. Malik [...] within her pituitary. She recently saw an contingents supervisor who noted he r visual acuity changed, [...] an upcoming appointment with endocrin ology at [facility]. Past Medical History: Past Medical History Diagnosis [...] duct (pouch) (HCC) 10/28/2012 Overview: Managed by [facility] along with hypothyroidism Osteoarthritis [...] 99 months. Please send order to [facility]. Respiratory Therapy Supplies MISC (Taking) Change CPAP back to 11-14 cm H2O. All necessar y supplies. No oxygen bleed in. Diagnosis Code(s)327.23. Length of Need: Lifetime. Please se nd order to [facility]. This is [...] of 10 mL of Gadavist. Dedicated small eezfs-ar-skto thin section imaging through the pituitary region [...] as needed. Discussed my upcoming departure from [place]. If charis valderrama has issues before August [...] | | | | | | [place] [address] | | | | | | [phone] | | | | | | | [...]
--- OUTSIDE RECORDS SUMMARY | ~2019-01-15 | XMS | Encounter Summary ---
Demographics + + + | Address | [address] | | | [place] [address] | + + + | Home Phone [...] Team Providers + +------+ + | Care Salvage Inspector Wood Parts Name | Role | Phone | + [...] [address] | | | | | [place], | [place] | | | | | [place] [address] | [address] | | | | | [phone] | | | +--------+--------+ + + + [...] [place] | | | | | | 134012 | | | | | | | | +--------+---------+ + + + | 11/24/ | Office | Cardiology | [place], | | | 2019 | Visit | | SINDHU Erickson [address] | | | | | | [place], | | | | | | [place] [address] | | | | | | [phone] | | | | | | | | +--------+---------+ + + + documented as of this encounter Visit Diagnoses Not on filedocumented in this encounter"
--- OUTSIDE RECORDS SUMMARY | ~2019-01-15 | XMS | Encounter Summary ---
Demographics + + + | Address | [address] | | | [place] [address] | + + + | Home Phone [...] Team Providers + +------+ + | Care Polls Or Surveys Interviewer Name | Role | Phone | + [...] + | 04/15/ | Refill | [facility] | Rajwinder Monzon, | Medication Refill | | 2013 | | PULMONARY [address] | Cert [place] | ( wanted to know | | | | [place], | | refill history.) | | | | [place] [address] | | | | | | [phone] | | | +--------+--------+ + + + [...] | | | | | | [place] [address] | | | | | | [phone] | | | | | | | | +--------+---------+ + + + documented as of this encounter Visit Diagnoses Not on filedocumented in this encounter"
--- OUTSIDE RECORDS SUMMARY | ~2019-01-15 | XMS | Encounter Summary ---
Demographics + + + | Address | [address] | | | [place] [address] | + + + | Home Phone [...] + + | Organization | and Services [place] | | | and [place] | + [...] Team Providers + +------+ + | Care Partridge Farmer Name | Role | Phone | [...] + + | 04/06/ | Office | [facility] | Brian Miranda | Sprain of chest wall | | 2014 | Visit | OCCUPATIONAL HEALTH | MD [address] | (Primary Dx); Place | | | | [address] | [facility] | of occurrence, | | | | [address] [facility] | [place] [address] | industrial places | | | | [place], [place] | [phone] | and premises | | | | [address] | | | | | | [phone] | | | +--------+---------+ + + + [...] MD - 04/06/2013 5:30 PM PSTSee dictation [id number] lisha d by Brian Miranda MD at 04/06/2013 5:30 PM Brian Avendano MD - 04/06/19 14 12:00 AM [facility] OCCUPATIONAL MEDICINE [address] [place] [address] [place], [place] [address] FAX: [phone] OFFICE VISIT CLAIM NO: [id number] DATE OF INJURY: 04/05/2013 EMPLOYER: Jelani Alcantara GUARANTOR: Jelani Rojas COMPLAINT: Chest wall sprain, unscheduled visit for followup evaluation and ongoing care. S: The injured worker is 48 years of age who presented without a scheduled appointment at [facility] urgent care/Occ/Med for an evaluation. 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 It was quite p ainful. She was unable to continue to work. She was evaluated in the emergency department a [facility] and that report is available [...] GChris Miranda MD / AP JOB #: [id number] signed by Brian Miranda MD at 04/07/2013 [...] | | | | [address] | | | | | | [address] | | | | | | | | +--------+---------+ + + + | 11/24/ | Office | Cardiology | [place], | | | 2019 | Visit | | SINDHU Erickson [address] | | | | | | [place], | | | | | | [place] [address] | | | | | | [phone] | | | | | | | [...]
--- OUTSIDE RECORDS SUMMARY | ~2019-01-15 | XMS | Encounter Summary ---
Demographics + + + | Address | [address] | | | [place] [address] | + + + | Home Phone [...] Team Providers + +------+ + | Care Pulp Machine Operator Name | Role | Phone [...] | Concussion | Aaron Kim MD | Store Specialist [address] | | | Required | | with brief | [address] | [place] | | | | | loss of | [address] | [place], [place] | | | | | consciousnes | [place], | [address] | | | | | s Word | [place] [address] | Phone: | | | | | finding | Phone: | [phone] | | | | | difficulty | [phone] | Fax: | | | | | [phone] | Fax: | [phone] | | | | | (ICD-10-CM) | [phone] | | | | | | - [...] + + | 05/16/ | Hospital | [facility] | Aaron Rodriguez, | Concussion with | | 2017 | Encounter | MED CTR SPEECH | MD [address] | brief (less than one | | | | THERAPY [address] | [place] | hour) loss of | | | | [place], | [address] | consciousness | | | | [place] [address] | | (Primary Dx); | | | | [phone] | Kathi Soto, | Impaired memory; | [...] | | | | | | | [facility]. | | | | | | | [...] | 0 | 10/13/19 | | | Dsqpiieovs-OMCA-Rgst | mouth as needed. | | | 16 | 7 | | -Cod [id number] MG | | | | | | [...] Speech Pathologist - 05/16/2016 10:30 AM PDT [facility] SPEECH THERAPY [address] [facility] [address] Speech Therapy Initial Assessment Date: 05/16/2016 Patient Information Patient Name: Rosario Malik Date of : 1965 Age: 51 y.o. History No problems updated. Mechanism of injury: Trauma- Concussion with brief loss of consciousness on 03/15/16. Previous level of function and limitations: Problems with memory prior to concussion [facility] in December of 2015, forgetting names, forgetting appointments,difficulty recalling words , and during conversation difficulty staying on track. 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 Social History Social History Marital Status: Single Spouse Name: N/A Number of Children: 1 Years of Education: 13 Occupational History SHOW HOST [employer] Social History Main Topics Smoking status: [...] [facility]) 10/28/2012 [facility] surgery right Hysterectomy Other surgical history 02/28/2014 [facility] with Radial approach; Laterality: Left; Surgeon: Jared Mcdonough MD; Location: [facility] Tonsillectomy Age 6 Turbt N/A 11/22/2015 Procedure: Cystoscopy, Hydrodistention & Bladder Biopsy; Surgeon: Juan Melendez; Location: [facility] MAIN OR Hernia repair 11/29/2015 [facility] Family History Problem Relation Age of [...] Rehab Precautions Office Visit from 05/01/2016 in [facility] CTR THERAPY PT OP Rehab [...] the mean for immediate and delayed memory. PUBLICATION SPECIALIST G-Codes Functional Assessment Tool Used: NOMS Score: [...] From: 05/16/2016 Certification To: 08/16/2016 Treatment Plan/Interventions 76493 - Cognitive [id number] - Cognitive [id number] - Speech/Hearing Treatment Patient and/or family has [...] SPEECH PATHO, 05/20/2016 19:10 Patient Name: Rosario Malik/: 1965/ docujuan ented in this encounter Plan of Treatment +--------+---------+ + + + | Date | Type | Specialty | Care Team | Description | +--------+---------+ + + + | 03/01/ | Office | Pulmonology | Mukul Clark MD | | | 2019 | Visit | | [address] | | | | | | [place] | | | | | | [address] | | | | | | | | +--------+---------+ + + + | 11/24/ | Office | Cardiology | [place], | | | 2019 | Visit | | SINDHU Erickson [address] | | | | | | [place], | | | | | | [place] [address] | | | | | | [phone] | | | | | | | [...]
--- OUTSIDE RECORDS SUMMARY | ~2019-01-15 | XMS | Encounter Summary ---
Demographics + + + | Address | [address] | | | [place] [address] | + + + | Home Phone [...] Team Providers + +------+ + | Care Daycare Teacher Name | Role | Phone | [...] [address] | | | | | [place], | [place] | | | | | [place] [address] | [address] | | | | | [phone] | | | +--------+--------+ + + + [...] [place] | | | | | | [id number] | | | | | | | | +--------+---------+ + + + | 11/24/ | Office | Cardiology | [place], | | | 2019 | Visit | | SINDHU Erickson [address] | | | | | | [place] | | | | | | [place] [address] | | | | | | [phone] | | | | | | | | +--------+---------+ + + + documented as of this encounter Visit Diagnoses Not on filedocumented in this encounter"
--- OUTSIDE RECORDS SUMMARY | ~2019-01-15 | XMS | Encounter Summary ---
Demographics + + + | Address | [address] | | | [place] [address] | + + + | Home Phone [...] Team Providers + +------+ + | Care Drying Room Supervisor Name | Role | Phone | [...] + + | 09/05/ | Telephone | [facility] | Kevin Sandoval, | Medication Prior | | 2014 | | PULMONARY [address] | MD [address] | Authorization | | | | [place], | [place] | | | | | [place] [address] | [address] | | | | | [phone] | | | +--------+ + + + [...] | | | | | | [place] [address] | | | | | | [phone] | | | | | | | | +--------+---------+ + + + documented as of this encounter Visit Diagnoses Not on filedocumented in this encounter"
--- OUTSIDE RECORDS SUMMARY | ~2019-01-15 | XMS | Encounter Summary ---
Demographics + + + | Address | [address] | | | [place] [address] | + + + | Home Phone [...] Team Providers + +------+ + | Care Funeral Greeter Name | Role | Phone | + [...] | CARDIOLOGY [address] | [address] [place] | (Primary Dx) | | | | [place], | [place], | | | | | [place] [address] | [place] [address] | | | | | [phone] | [phone] | | | | | | | [...] Need: Lifetime. Please send orde r to [facility]. This is not a new order, [...] She is in a class II of [place] Heart Association functi onal class. There is no signs and symptoms of overt congestive heart failure. There are no f luid retention on physical examination. 2. Palpitation secondary to the paroxysmal atrial tachycardia/inappropriate sinus tachycard ia A. She has been in her usual state of health until about months ago when she started to no aanlisa the fluctuation of her pulses. She stated her heart rate can go up to 130 per minute w hile she was sitting in a chair doing nothing. B. Echocardiogram, 08/23/2013 normal systolic left ventricular and ventricular function don e at the [facility]. LVEF 78%. C. Holter Monitor 08/16/13 [...] months. Electronically signed by: Jared Mcdonough MD [facility] 03/17/2014 Portions of this chart may have been created with [employer] voice recognition software. Occasi onal wrong-word [...] [place] | | | | | | [address] | | | | | | | | +--------+---------+ + + + | 11/24/ | Office | Cardiology | [place], | | | 2020 | Visit | | SINDHU Erickson [address] | | | | | | [place], | | | | | | [place] [address] | | | | | | [phone] | | | | | | | | +--------+---------+ + + + documented as of this encounter Visit Diagnoses + + | Diagnosis | + + | Other chest pain - Primary | + + documented in this encounter
--- OUTSIDE RECORDS SUMMARY | ~2019-01-15 | XMS | Encounter Summary ---
Demographics + + + | Address | [address] | | | [place] [address] | + + + | Home Phone [...] Team Providers + +------+ + | Care Electrician Supervisor Airplane Name | Role | Phone | + +------+ + | Juan Cherry DO | PCP | | + +------+ + Reason for Visit +--------+ + | Reason | Comments | +--------+ + | Other | CPAP download results | +--------+ + Encounter Details +--------+ + [...] | | | | | | [place] [address] | | | | | | [phone] | | | +--------+ + + + [...] [place] | | | | | | [address] | | | | | | | | +--------+---------+ + + + | 11/24/ | Office | Cardiology | [place], | | | 2019 | Visit | | SINDHU Erickson [address] | | | | | | [place] | | | | | | [place] [address] | | | | | | [phone] | | | | | | | | +--------+---------+ + + + documented as of this encounter Visit Diagnoses Not on filedocumented in this encounter"
--- OUTSIDE RECORDS SUMMARY | ~2019-01-15 | XMS | Encounter Summary ---
Demographics + + + | Address | [address] | | | [place] [address] | + + + | Home Phone [...] Team Providers + +------+ + | Care Core Winding Operator Name | Role | Phone | + +------+ + | Ozyz Delcid MD | PCP | | + +------+ + Encounter Details +--------+ + + + + | Date | Type | Department | Care Team | Description | +--------+ + + + + | 11/24/ | Abstract | [facility] | Ozzy Delcid, | | | 2011 | | Anti-Coagulation | [address] | | | | | Clinic | [place] | | | | | | [address] | | | | | | | [...] [place] | | | | | | [address] | | | | | | | | +--------+---------+ + + + | 11/24/ | Office | Cardiology | [place], | | | 2019 | Visit | | SINDHU Erickson [address] | | | | | | [place], | | | | | | [place] [address] | | | | | | [phone] | | | | | | | | +--------+---------+ + + + documented as of this encounter Visit Diagnoses Not on filedocumented in this encounter"
--- OUTSIDE RECORDS SUMMARY | ~2019-01-15 | XMS | Encounter Summary ---
Demographics + + + | Address | [address] | | | [place] [address] | + + + | Home Phone [...] Team Providers + +------+ + | Care Resource Manager Name | Role | Phone | [...] | +--------+ + + + + | 08/28/ | Documentati | [facility] | Kathi Soto, | No Show | | 2017 | on | MED CTR SPEECH | Speech Pathologist | | | | | THERAPY [address] | | | | | | [place], | | | | | | [place] [address] | | | | | | [phone] | | | +--------+ + + + [...] Progress Notes Kathi Soto, Speech Pathologist - 08/28/2016 10:23 AM PDTPROVID[facility] SPE ECH THERAPY [address] [place] [address] Cancellation/No Show Date: 08/28/2016 Patient Information Patient Name: Rosario Malik Date of : 1965 Age: 51 y.o. Reason for missed visit: No Show Phone call placed: yes- ST called and left message re: missed appointment. Plan: Continue POC at next scheduled visit, request making further appointments as she has only 1 left on the therapy schedule. Electronically signed by: Kathi Soto Speech Pathologist, 08/28/2016 10:24 Patient Name: Rosario Malik/: 1965/ Edocum ented in this encounter Plan of Treatment [...] [place] | | | | | | [id number] | | | | | | | | +--------+---------+ + + + | 11/24/ | Office | Cardiology | [place], | | | 2019 | Visit | | SINDHU Erickson [address] | | | | | | [place] | | | | | | [place] [address] | | | | | | [phone] | | | | | | | | +--------+---------+ + + + documented as of this encounter Visit Diagnoses Not on filedocumented in this encounter"
--- OUTSIDE RECORDS SUMMARY | ~2019-01-15 | XMS | Encounter Summary ---
Demographics + + + | Address | [address] | | | [place] [address] | + + + | Home Phone [...] Team Providers + +------+ + | Care Administrative Support Specialist Name | Role | Phone | [...] [address] | CALL) | | | | [place], [place] | [facility] | | | | | [address] | [place] [address] | | | | | [phone] | [phone] | | | | | | | [...] [place] | | | | | | [address] | | | | | | | | +--------+---------+ + + + | 11/24/ | Office | Cardiology | [place], | | | 2019 | Visit | | SINDHU Erickson [address] | | | | | | [place], | | | | | | [place] [address] | | | | | | [phone] | | | | | | | | +--------+---------+ + + + documented as of this encounter Visit Diagnoses Not on filedocumented in this encounter"
--- OUTSIDE RECORDS SUMMARY | ~2019-01-15 | XMS | Encounter Summary ---
Demographics + + + | Address | [address] | | | [place] [address] | + + + | Home Phone [...] Providers + +------+ + | Care Systems Spec Name | Role | Phone | [...] + | 07/25/ | Documentati | [facility] | Kathi Soto, | No Show | | 2017 | on | MED CTR SPEECH | Speech Pathologist | | | | | THERAPY [address] | | | | | | [place], | | | | | | [place] [address] | | | | | | [phone] | | | +--------+ + + + [...] - 07/25/2016 1:58 [facility] [address] [place] [address] Cancellation/No Show Date: 07/25/2016 Patient Information Patient [...] | | | | | | [place] [address] | | | | | | [phone] | | | | | | | | +--------+---------+ + + + documented as of this encounter Visit Diagnoses Not on filedocumented in this encounter"
--- OUTSIDE RECORDS SUMMARY | ~2019-01-15 | XMS | Encounter Summary ---
Demographics + + + | Address | [address] | | | [place] [address] | + + + | Home Phone [...] Team Providers + +------+ + | Care Lyric Writer Name | Role | Phone | [...] + + | 10/02/ | Telephone | [facility] | Andriy Weber | Appointment | | 2017 | | [address] | MD [address] | | | | | [place] | [facility] | | | | | [address] | [place] [address] | | | | | [phone] | [phone] | | | | | | | [...] [place] | | | | | | [address] | | | | | | | | +--------+---------+ + + + | 11/24/ | Office | Cardiology | [place], | | | 2019 | Visit | | SINDHU Erickson [address] | | | | | | [place] | | | | | | [place] [address] | | | | | | [phone] | | | | | | | | +--------+---------+ + + + documented as of this encounter Visit Diagnoses Not on filedocumented in this encounter"
--- OUTSIDE RECORDS SUMMARY | ~2019-01-15 | XMS | Encounter Summary ---
Demographics + + + | Address | [address] | | | [place] [address] | + + + | Home Phone [...] Providers + +------+ + | Care Insurance Special Agent Name | Role | Phone | [...] | 06/27/ | Telephone | [facility] | Weber, Andriy | Other | | 2018 | | [address] | MD [address] | | | | | [place] | THOM [facility] | | | | | [address] | [place] [address] | | | | | [phone] | [phone] | | | | | | | [...] [place] | | | | | | [address] | | | | | | | | +--------+---------+ + + + | 11/24/ | Office | Cardiology | [place], | | | 2019 | Visit | | SINDHU Erickson W | | | | | | [place] | | | | | | [place] [address] | | | | | | [phone] | | | | | | | | +--------+---------+ + + + documented as of this encounter Visit Diagnoses Not on filedocumented in this encounter"
--- OUTSIDE RECORDS SUMMARY | ~2019-01-15 | XMS | Encounter Summary ---
Demographics + + + | Address | [address] | | | [place] [address] | + + + | Home Phone [...] Team Providers + +------+ + | Care Orchestra Teacher Name | Role | Phone | + +------+ + | Juan Cherry DO | PCP | | + +------+ + Encounter Details +--------+ + + + + | Date | Type | Department | Care Team | Description | +--------+ + + + + | 07/15/ | Hospital | [facility] | Kevin Sandoval, | COPD (chronic | | 2014 | Encounter | MED CTR PULMONARY | MD [address] | obstructive | | | | FUNCTION [address] | [place] | pulmonary disease); | | | | [place], | [address] | Hypoxemia | | | | [place] [address] | | | | | | [phone] | | | +--------+ + + + [...] | | | | | | [place] [address] | | | | | | [phone] | | | | | | | [...]
--- OUTSIDE RECORDS SUMMARY | ~2019-01-15 | XMS | Encounter Summary ---
Demographics + + + | Address | [address] | | | [place] [address] | + + + | Home Phone [...] Team Providers + +------+ + | Care Demurrage Worker Name | Role | Phone | [...] + + | 11/23/ | [facility] | [facility] | Shashi Segovia | Headache (Primary | | 2013 | Visit | NEUROLOGY ADRIANA | MD Miryam Need updated | Dx); Pituitary | | | | [address] [facility], | address | tumor; Headaches due | | | | [address] [facility] | | to old head injury | | | | [place] [address] | | | | | | [phone] | | | +--------+---------+ + + + [...] without talking to your doctor or health home health care coordinator. Do not take your medicine more often than directed. Talk to your plater printed circuit board panels regarding the use of this medicine in [...] should report to your doctor or health home health care coordinator as soon as p ossible: allergic reactions [...] attention (report to your doctor or health home health care coordinator if they continue or are bothersome): dizziness drowsiness dry mouth facial flushing muscle pain or cramps nausea, vomiting weak or tired This list may not describe all possible side effects. Call your doctor for medical advice a bout side effects. You may report side effects to FDA at 6-808-GIW-2914. Where should I keep my medicine? Keep [...] from the original. Shashi Segovia MD [address] [facility], [address] [place] [address] Neurology Outpatient ProgressNote Patient ID: Ms. Malik is a 48 y.o. female with a pertinent history of COPD, depression, COPD, GARRY on PAP, hypothyroidism, possible adrenal insufficiency, and pituitary lesion, following up in n eurology clinic for increased headache frequency. Ms. Malik was last seen 10/20/13 and unde formerly [facility] lab work up and was switched from [...] In review of prior lab work at [facility], the IGF-I yolanda steve has [...] [facility] 10/28/2012 Overview: Managed by [facility] along with hypothyroidism Osteoarthritis Tachycardia Asthma Emphysema ([facility]) Migraine Current Medications: Current Medications [...] Take by mouth Daily. Respiratory Therapy Supplies [facility] Incentive spirometer. Please provide instructions in use . Dx: 848.8 MADELEINE: 3 months Respiratory Therapy Supplies [facility] Please provide patient with necessary CPAP supplies (she did not specify, okay to send order as appropriate) Diagnosis Code(s)327.23 . Length of Nee d 99 months. Please send order to [facility]. Respiratory Therapy Supplies [facility] Change CPAP back to 11-14 cm H2O. All necessary supplies . No oxygen bleed in. Diagnosis Code(s)327.23. Length of Need: Lifetime. Please send order t [facility]. This is not a new order, [...] Testing Performed: [facility], [address], [place] [address] Creatinine, Urine mg/dL 48 Creatinine, 24H Ur 700 - 1600 mg/d 768 Cortisol, Urine, Free, ug/gCre ug/g STOCKROOM COORDINATOR 8.77 Comments: Reference Interval: Cortisol ug/g crtFemalePrepubertal: Less than 25 ug/g crt18 years and o lder: Less than 24 ug/g crtPregnancy: Less than 59 ug/g crtMalePrepubertal: Less than 25 ug/ g crt18 years and older: Less than 32 ug/g door maker Cortisol, Urine, Free, ug/L ug/L 4.21 Cortisol, Urine, Free, ug/day <46 ug/d 6.7 Comments: Reference range: <=45.0 Assessment: Ms. Malik is a 48 y.o. female with a history of COPD, depression, COPD, GARRY on PAP, hypoth yroidism, possible adrenal insufficiency, and pituitary lesion, following up in neurology [facility] for increased headache frequency. 1) Headaches: [...] from Imitrex - Prescription sent to local [facility] - Discussed medication overuse headache. If patient needs more than 2 doses of Maxalt per w [place], we will consider starting prophylaxis. 2) Pituitary [...] [place] | | | | | | [address] | | | | | | | | +--------+---------+ + + + | 11/24/ | Office | Cardiology | [place], | | | 2019 | Visit | | SINDHU Erickson [address] | | | | | | [place], | | | | | | [place] [address] | | | | | | [phone] | | | | | | | [...]
--- OUTSIDE RECORDS SUMMARY | ~2019-01-15 | XMS | Encounter Summary ---
Demographics + + + | Address | [address] | | | [place] [address] | + + + | Home Phone [...] Team Providers + +------+ + | Care Club Concierge Name | Role | Phone | [...] | Concussion | Aaron Kim MD | Asphalt Spreader [address] | | | Required | | with brief | [address] | [place] | | | | | loss of | [address] | [place], [place] | | | | | consciousnes | [place], | [address] | | | | | [place] | [place] [address] | Phone: | | | | | finding | Phone: | [phone] | | | | | difficulty | [phone] | Fax: | | | | | [phone] | Fax: | [phone] | | | | | (ICD-10-CM) | [phone] | | | | | | - [...] + + | 05/23/ | Hospital | [facility] | Aaron Rodriguez, | Concussion with | | 2017 | Encounter | MED CTR SPEECH | MD [address] | brief (less than one | | | | THERAPY [address] | [place], [place] | hour) loss of | | | | [place], | [address] | consciousness | | | | [place] [address] | | (Primary Dx); | | | | [phone] | Kathi Soto, | Impaired memory; | [...] | | | | order to [facility]. | | | | | + + [...] | | | send order to [facility] | | | | | | | [facility]. | | | | | | [...] | 0 | 10/13/19 | | | Nyhxlnaxwe-QMMU-Qbdr | mouth as needed. | | | 16 | 7 | | -Cod [id number] MG | | | | | | [...] Speech Pathologist - 05/23/2016 7:[address] [facility] [address] [facility] [address] Speech Therapy Daily Treatment Note Date: 05/23/2016 [...] Precautions Office Visit from 05/01/[address] [facility] THERAPY PT OP Rehab Precautions Precautions None Rehab Learning Style [facility] OP EVAL from 05/16/[address] [facility] SPEECH THERAPY Office V isit from 05/01/[address] [facility] THERAPY PT OP Learning Style Patient's [...] | | | | [place], [place] | | | | | | [address] | | | | | | | | +--------+---------+ + + + | 11/24/ | Office | Cardiology | [place], | | | 2019 | Visit | | GeorginaSINDHU [address] | | | | | | [place], | | | | | | [place] [address] | | | | | | [phone] | | | | | | | [...]
--- OUTSIDE RECORDS SUMMARY | ~2019-01-15 | XMS | Encounter Summary ---
Demographics + + + | Address | [address] | | | [place] [address] | + + + | Home Phone [...] Team Providers + +------+ + | Care Pellet Post Inspector Name | Role | Phone | [...] + + | 03/25/ | [facility] | [facility] | Daryl Hargrove | Diverticulitis of | | 2014 | Visit | CARE [address] | Ernie Sanabria MD | large intestine | | | | [place], [place] | [address] | without perforation | | | | [address] | [place] | or abscess without | | | | [phone] | [address] | bleeding (Primary | | | | [...] [place] | | | | | | [id number] | | | | | | | | +--------+---------+ + + + | 11/24/ | Office | Cardiology | [place], | | | 2019 | Visit | | SINDHU Erickson [address] | | | | | | [place] | | | | | | [place] [address] | | | | | | [phone] | | | | | | | [...]
--- OUTSIDE RECORDS SUMMARY | ~2019-01-15 | XMS | Encounter Summary ---
Demographics + + + | Address | [address] | | | [place] [address] | + + + | Home Phone [...] Team Providers + +------+ + | Care Porcelain Slusher Name | Role | Phone | + [...] | Concussion | Aaron Kim MD | Treadle Cut Off Saw Operator [address] | | | Required | | with brief | [address] | [place] | | | | | loss of | [address] | [place], [place] | | | | | consciousnes | [place], | [address] | | | | | [place] | [place] [address] | Phone: | | | | | finding | Phone: | [phone] | | | | | difficulty | [phone] | Fax: | | | | | [phone] | Fax: | [phone] | | | | | (ICD-10-CM) | [phone] | | | | | | - [...] + + + + | 07/18/ | Hospital | [facility] | Aaron Rodriguez, | Canceled (Illness) | | 2017 | Encounter | MED CTR SPEECH | [address] | | | | | THERAPY [address] | [place] | | | | | [place], | [address] | | | | | [place] [address] | | | | | | [phone] | Cesia Su | | | | | | M, Speech | | | | | | Pathologist [address] | | | | [address] [place] | | | | | | [place] [address] | | | | | | [phone] | | | | | | | [...] documented as of this encounter Progress Notes Cesia Su Speech Pathologist - 07/18/2016 9:41 AM [facility] [address] [place] [address] Cancellation/No Show Date: 07/18/2016 Patient Information Patient Name: Rosario Malik Date of : 1965 Age: 51 y.o. Reason for missed visit: Patient is sick Phone call placed: yes - called to cancel Plan: Continue POC at next scheduled appointment Electronically signed by: Cesia Su Speech Pathologist, 07/18/2016 9:41 Patient Name: Rosario Malik/: 1965/ Tdocumented in [...] [place] | | | | | | [id number] | | | | | | | | +--------+---------+ + + + | 11/24/ | Office | Cardiology | [place], | | | 2019 | Visit | | SINDHU Erickson [address] | | | | | | [place], | | | | | | [place] [address] | | | | | | [phone] | | | | | | | | +--------+---------+ + + + documented as of this encounter Visit Diagnoses Not on filedocumented in this encounter"
--- OUTSIDE RECORDS SUMMARY | ~2019-01-15 | XMS | Encounter Summary ---
Demographics + + + | Address | [address] | | | [place] [address] | + + + | Home Phone [...] Team Providers + +------+ + | Care Banking Analyst Name | Role | Phone | [...] | | | | | [place] | [facility] | | | | | [address] | [place] [address] | | | | | [phone] | [phone] | | | | | | | [...] | | | | [address] [place] | | | | | | [address] | | | | | | | | +--------+---------+ + + + | 11/24/ | Office | Cardiology | [place], | | | 2019 | Visit | | SINDHU Erickson [address] | | | | | | [place], | | | | | | [place] [address] | | | | | | [phone] | | | | | | | | +--------+---------+ + + + documented as of this encounter Visit Diagnoses Not on filedocumented in this encounter"
--- OUTSIDE RECORDS SUMMARY | ~2019-01-15 | XMS | Encounter Summary ---
Demographics + + + | Address | [address] | | | [place] [address] | + + + | Home Phone [...] Providers + +------+ + | Care Property Claims Adjuster Name | Role | Phone | + +------+ + | Juan Cherry DO | PCP | | + +------+ + Encounter Details +--------+ + + + + | Date | Type | Department | Care Team | Description | +--------+ + + + + | 08/05/ | Hospital | [facility] | Kevin Sandoval, | Chronic airway | | 2013 | Encounter | MED CTR PULMONARY | MD [address] | obstruction, not | | | | FUNCTION [address] | [place], [place] | elsewhere classified | | | | [place], | [address] | (HCC) | | | | [place] [address] | | | | | | [phone] | | | +--------+ + + + [...] | | | | [facility]. | | | | | | | [...] [place] | | | | | | [address] | | | | | | | | +--------+---------+ + + + | 11/24/ | Office | Cardiology | [place], | | | 2019 | Visit | | SINDHU Erickson [address] | | | | | | [place], | | | | | | [place] [address] | | | | | | [phone] | | | | | | | [...] classified | | | | | | ([facility]) | | + +--------+ + + + documented in this encounter Visit Diagnoses + + | Diagnosis | + + | Chronic airway obstruction, not elsewhere classified | + + documented in this encounter"
--- OUTSIDE RECORDS SUMMARY | ~2019-01-15 | XMS | Encounter Summary ---
Demographics + + + | Address | [address] | | | [place] [address] | + + + | Home Phone [...] Team Providers + +------+ + | Care Dirt Shoveler Name | Role | Phone | + [...] + + | 07/27/ | Office | [facility] | Brian Miranda | Sprain of chest | | 2013 | Visit | [facility] | MD [address] | abigail garcia | | | | [place] [address] | [facility] | encounter (Primary | | | | [address] 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 No rose nges in background medical information of. Past medical history, medications, allergies reviewed Review of systems: As per HPI Objective: Vital signs as noted, nursing notes reviewed. Aqsujwq-zwno-qvndedxyn, well-nourished, in no apparent distress, pleasant cooperative. [...] [place] | | | | | | [id number] | | | | | | | | +--------+---------+ + + + | 11/24/ | Office | Cardiology | [place], | | | 2019 | Visit | | SINDHU Erickson [address] | | | | | | [place] | | | | | | [place] [address] | | | | | | [phone] | | | | | | | | +--------+---------+ + + + documented as of this encounter Visit Diagnoses + + | Diagnosis | + + | Sprain of chest wall, subsequent encounter - Primary | + + | Place of occurrence, industrial places and premises | + + documented in this encounter
--- OUTSIDE RECORDS SUMMARY | ~2019-01-15 | XMS | Encounter Summary ---
Demographics + + + | Address | [address] | | | [place] [address] | + + + | Home Phone [...] Team Providers + +------+ + | Care Scheduling Administrator Name | Role | Phone | + +------+ + | Juan Cherry DO | PCP | | + +------+ + Reason for Referral Evaluate & Treat (Urgent) +--------+ + + [...] | (obstructive | [address] | [place] | | | | | sleep | [place] | [place], | | | | | apnea) | [place], [place] | [place] [address] | | | | | Procedures | [address] | Phone: | | | | | [place] POL[place] | Phone: | [phone] | | | | | 6/>YRS SLEEP | [phone] | Fax: | | | | | 4/> ADDL | Fax: | [phone] | | | | | ALESSIA ATTND | [phone] | | | | | | [place] | | | | | | [...] | +--------+ + + + + | 07/30/ | Orders Only | [facility] [place] [facility] | Meghan Garcia MD | GARRY (obstructive | | 2019 | | SLEEP DISORDER [address] | [address] | sleep apnea) | | | | [address] [place] | [place] | (Primary Dx) | | | | [place] [address] | [address] | | | | | [phone] | | | +--------+ + + + [...] [place] | | | | | | [address] | | | | | | | | +--------+---------+ + + + | 11/24/ | Office | Cardiology | [place], | | | 2019 | Visit | | SINDHU Erickson [address] | | | | | | [place], | | | | | | [place] [address] | | | | | | [phone] | | | | | | | | +--------+---------+ + + + + + +--------+ + + | Name | Type | Priori | Associated Diagnoses | Order Schedule | | | | ty | | | + + +--------+ + + | * [facility] - | Outpatient | Routin | GARRY (obstructive | Ordered: 07/30/2018 | | AMB Referral | Referral | e | sleep apnea) | | + + +--------+ + + documented as of this encounter Visit Diagnoses + + | Diagnosis | + + | GARRY (obstructive sleep apnea) - Primary Obstructive sleep apnea (adult) (pediatric) | + + documented in this encounter"
--- OUTSIDE RECORDS SUMMARY | ~2019-01-15 | XMS | Encounter Summary ---
Demographics + + + | Address | [address] | | | [place] [address] | + + + | Home Phone [...] Team Providers + +------+ + | Care Hair Dresser Name | Role | Phone | + +------+ + | Juan Cherry DO | PCP | | + +------+ + Reason for Visit + + + | Reason | Comments | + + + | Follow-up | Cystoscopy for bladder pain | + + + Encounter Details +--------+---------+ + + + | Date | Type | Department | Care Team | Description | +--------+---------+ + + + | 07/29/ | Office | [facility] | Andriy Weber | Kendra | | 2018 | Visit | [address] | MD [address] | cystitis (chronic) | | | | [place], [place] | [facility] | without hematuria | | | | [address] | [place] [address] | | | | | [phone] | [phone] | | | | | | | [...] + + + | Blood Pressure | 107/62 | 07/29/2017 10:15 AM | | | | | PDT | | + + + + + | Pulse | 99 | 07/29/2017 10:15 AM | | | | | PDT | | + + + + + | Temperature | - | - | | + + + + + | Respiratory Rate | 16 | 07/29/2017 10:15 AM | | | | | PDT | | + + + + + | Oxygen Saturation | - | - | | + + + + + | Inhaled Oxygen | - | - | | | Concentration | | | | + + + + + | Weight | 77.6 kg (171 lb) | 07/29/2017 10:15 AM | | | | | PDT | | + + + + + | Height | 157.5 cm (5' 2") | 07/29/2017 10:15 AM | | | | | PDT | | + + + + + | Body Mass Index | 31.28 | 07/29/2017 10:15 AM | | | | | [...] encounter Progress Notes Andriy Weber MD - 07/29/2017 10:30 AM PDTFormatting of this note might be differen t from the original. Rosario is a 52 y.o. female patient of Juan Cherry, being seen today for cystoscop y for bladder pain associated with recent gross hematuria. She is not tolerating DMSO instillations well at all. The catheterizations are all very pa inful, and she is not having any resolution of her discomfort with DMSO. Her last instillat ion was also associated with post instillation bleeding. She is not having any fevers or ch ills, or flank pain. Her urinalysis is quite clear. She has no definite provocative foods, drinks, or activities, that seem to cause any increa se in symptoms. Her pain is mainly of a stabbing nature in her urethra, which migrates up i nto the bladder, with bladder filling. She notes decrease in pain when she empties her blad willow. She states her urinary flow is satisfactory. Last night, she went to the emergency room for pain relief, but left due to the wait. We discussed cystoscopy to rule out any urethral or periurethral uropathology. 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) ([facility]) (10/28/2012); Bilateral renal cysts; Complex sleep apnea syndrome; COPD (chronic obstructive pulmonary disease) ([facility]) (201 2); Depression; Diverticulitis; Diverticulosis; Emphysema; Fibromyalgia; [...] attacks Medications: Outpatient Encounter Prescriptions as of 07/29/2017 Medication Sig Dispense Refill ADVAIR HFA [id number] [...] da rigoberto Respiratory Therapy Supplies [facility] Please provide patient with necessary CPAP supplies ( she did not specify, okay to send order as appropriate) Diagnosis Code(s)327.23 . Length of Need 99 months. Please send order to [facility]. 1 each 0 Respiratory Therapy Supplies [facility] Change CPAP back to 11-14 cm H2O. All necessary suppl ies. No oxygen bleed in. Diagnosis Code(s)327.23. Length of Need: Lifetime. Please send orde r to [facility]. This is not a new order, [...] times daily. Facility-Administered Encounter Medications as of 07/29/2017 Medication Dose Route Frequency Provider Last Rate Last Dose sodium bicarbonate 1 mEq/mL injection 10 mEq 10 mL Other Weekly Yinka Melendez 10 mEq at 07/24/17 1058 triamcinolone acetonide (KENALOG-40) 40 mg/mL injection 40 mg 40 mg Other Weekly Andriy Weber MD 40 mg at 07/24/17 1058 PHYSICAL EXAM Vitals: BP 107/62 | Pulse 99 | Resp 16 | Ht 1.575 m (5' 2") | Wt 77.6 kg (171 lb) | BM I 31.28 kg/m General: Awake, alert, in no acute distress. Speech is fluent. Nasal O2 in situ. Appears to be stated age. Lungs: Increased respiratory effort, with slight tachypnea. Abdomen: Soft, nontender. Extremities: 1+ pedal edema bilaterally Neuro: Awake, alert, oriented. Psychiatric: Mood and [...] and investigated and was found to demonstrate small postvoid resi dual with grade 1-2 trabeculation. There were no areas of erythema, hyperplasia, or bladder tumors identified. There was slight discomfort on bladder filling.The ureteral orifices an d trigone were normal in appearance, and effluxed clear urine. The cystoscope was retroflex ed and the bladder neck region was normal in appearance. The cystoscope was slowly withdrawn through the urethra and this is normal in appearance, b ut quite tender. With the cystoscope in situ, the urethra was palpated, and there were no m asses or specific points of tenderness noted. There were no periurethral ulcerations or are as of erythema. Rosario tolerated the procedure well. There were no complications. To summarize the cystoscopic exam demonstrated a normal-appearing, but very tender urethra. Bladder was normal appearing, but slightly tender with filling. There were no areas that seemed to be the source of her bleeding recently. She will poultry picker Keflex for prophylaxis today. 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 Her urethra is maximally tender, with no structural lesions seen. Her bladder appears to be fairly normal on cystos copy, but it too, is mildly tender. Although she did complain of gross hematuria, her urine is clear. I have asked her to use bacitracin ointment topically to her urethral area for the next wee k or two, and return for reevaluation. If she has any further episodes of gross hematuria, or microscopic hematuria, a cytology, and repeat CT urogram will be undertaken. Patient instructed to resume usual and customary care with primary care provider. I asked Rosario to notify me if there were any difficulties voiding, or UTI symptoms, or f lank pain, or for any questions or concerns whatsoever. This document was generated in part using [employer] voice recognition software. Although ever y effort is made to edit the content, contract manager errors may occur. Occasional wrong word or sound alike substitutions may have occurred due to the inherent limitations of the voice recognition software. Please read the chart carefully and recognize, using context, where raven substitutions may have occurred. Rosario called back to request extra pain medication for her tender urethra. In view of t zachariah recent urethral manipulations, I have written for hydrocodone to use over the next 10 day s or so. documented in th is encounter Plan of Treatment +--------+---------+ + + + | Date | Type | Specialty | Care Team | Description | +--------+---------+ + + + | 03/01/ | Office | Pulmonology | Mukul Clark MD | | | 2020 | Visit | | [address] | | | | | | [place] | | | | | | [address] | | | | | | | | +--------+---------+ + + + | 11/24/ | Office | Cardiology | [place], | | | 2019 | Visit | | SINDHU Erickson [address] | | | | | | [place], | | | | | | [place] [address] | | | | | | [phone] | | | | | | | | +--------+---------+ + + + documented as of this encounter Procedures + +--------+ + + + | Procedure Name | Priori | Date/Time | Associated Diagnosis | Comments | | | ty | | | | + +--------+ + + + | LABS - EXTERNAL SCAN | | 06/10/2017 | | Results for this | | | | 12:00 AM | | procedure are in the | | | | PDT | | results section. | + +--------+ + + + documented in this encounter Results LABS - EXTERNAL SCAN (06/10/2017 12:00 AM PDT) + + + | Narrative | Performed At | + + + | Ordered by an | | | unspecified provider. | | + + + documented in this encounter Visit Diagnoses + + | Diagnosis | + + | Interstitial cystitis (chronic) without hematuria | + + documented in this encounter
--- OUTSIDE RECORDS SUMMARY | ~2019-01-15 | XMS | Encounter Summary ---
Demographics + + + | Address | [address] | | | [place] [address] | + + + | Home Phone [...] Team Providers + +------+ + | Care Physical Metallurgist Name | Role | Phone | + [...] | | [place] | [address]OM [facility] | | | | | [address] | [place] [address] | | | | | [phone] | [phone] | | | | | | | [...] [place] | | | | | | [address] | | | | | | | | +--------+---------+ + + + | 11/24/ | Office | Cardiology | [place], | | | 2019 | Visit | | SINDHU Erickson [address] | | | | | | [place], | | | | | | [place] [address] | | | | | | [phone] | | | | | | | | +--------+---------+ + + + documented as of this encounter Visit Diagnoses Not on filedocumented in this encounter"
--- OUTSIDE RECORDS SUMMARY | ~2019-01-15 | XMS | Encounter Summary ---
Demographics + + + | Address | [address] | | | [place] [address] | + + + | Home Phone [...] Team Providers + +------+ + | Care Planishing Hammer Operator Name | Role | Phone | [...] + + | 02/02/ | [facility] | [facility] | Jared Mcdnoough, | Paroxysmal atrial | | 2015 | Visit | CARDIOLOGY [address] | MD [address] | tachycardia (HCC) | | | | [place], | [place], | (Primary Dx); | | | | [place] [address] | [place] [address] | Syncope, unspecified | | | | [phone] | [phone] | syncope type; | | | | | | Palpitations | | | | | Ashlee Allison ARNP | | | | | | [address] | | | | | | [place] | | | | | | [phone] | | | | | | | [...] She takes this daily Respiratory Therapy Supplies [facility] Please provide patient with necessary CPAP supplies ( she did not specify, okay to send order as appropriate) Diagnosis Code(s)327.23 . Length of Need 99 months. Please send order to [facility]. 1 each 0 Respiratory Therapy Supplies [facility] Change CPAP back to 11-14 cm H2O. All necessary suppl ies. No oxygen bleed in. Diagnosis Code(s)327.23. Length of Need: Lifetime. Please send orde r to [facility]. This is not a new order, [...] She was seen at the ED of [facility] 3 weeks ago and again 1 week [...] She is in a class II of [employer] functional class. There is no [...] and ventricular function don e at the [facility]. LVEF 78%. C. Holter Monitor 08/16/13 Underlying [...] concerns. Electronically signed by: Jared Mcdonough MD [facility] 02/02/2015 Portions of this chart may have been created with [employer] voice recognition software. Occasi onal wrong-word or [...] | | | | | | [place] [address] | | | | | | [phone] | | | | | | | | +--------+---------+ + + + documented as of this encounter Visit Diagnoses + + | Diagnosis | + + | Paroxysmal atrial tachycardia (HCC) - Primary Paroxysmal supraventricular tachycardia | + + | Syncope, unspecified syncope type | + + | Palpitations | + + documented in this encounter
--- OUTSIDE RECORDS SUMMARY | ~2019-01-15 | XMS | Encounter Summary ---
Demographics + + + | Address | [address] | | | [place] [address] | + + + | Home Phone [...] Team Providers + +------+ + | Care Radiological Health Specialist Name | Role | Phone [...] | | central | [address] | [place] | | | | | sleep apnea | [address] | [place], | | | | | [place] | [place], | [place] [address] | | | | | (obstructive | [place] [address] | Phone: | | | | | sleep | Phone: | [phone] | | | | | apnea) | [phone] | Fax: | | | | | Procedures | Fax: | [phone] | | | | | [place] | [phone] | | | | | | 6/>YRS [...] + + | 02/08/ | Hospital | [facility] | Kevin Sandoval, | | | 2013 | Encounter | MED CTR SLEEP | [address] | | | | | [place] [address] [place] | [place] | | | | | [place] | [address] | | | | | [address] | | | | | | [phone] | | | +--------+ + + + [...] | | | | | order to [facility]. | | | | | + [...] [place] | | | | | | [address] | | | | | | | | +--------+---------+ + + + | 11/24/ | Office | Cardiology | [place], | | | 2019 | Visit | | SINDHU Erickson [address] | | | | | | [place], | | | | | | [place] [address] | | | | | | [phone] | | | | | | | [...]
--- OUTSIDE RECORDS SUMMARY | ~2019-01-15 | XMS | Encounter Summary ---
Demographics + + + | Address | [address] | | | [place] [address] | + + + | Home Phone [...] Team Providers + +------+ + | Care Steward/Stewardess Lounge Name | Role | Phone | + [...] + + | 10/02/ | Telephone | [facility] | Andriy Weber | Appointment | | 2017 | | [address] | MD [address] | | | | | [place] | [address] [facility] | | | | | [address] | [place] [address] | | | | | [phone] | [phone] | | | | | | | [...] [place] | | | | | | [address] | | | | | | | | +--------+---------+ + + + | 11/24/ | Office | Cardiology | [place], | | | 2019 | Visit | | SINDHU Erickson [address] | | | | | | [place] | | | | | | [place] [address] | | | | | | [phone] | | | | | | | | +--------+---------+ + + + documented as of this encounter Visit Diagnoses Not on filedocumented in this encounter"
--- OUTSIDE RECORDS SUMMARY | ~2019-01-15 | XMS | Encounter Summary ---
Demographics + + + | Address | [address] | | | [place] [address] | + + + | Home Phone [...] Providers + +------+ + | Care Hr Systems Analyst Name | Role | Phone | [...] | | | | [facility] | [place] [address] | [address] | | | | | EXERCISE | [place], | [place] | | | | | | [place] [address] | [place], [place] | | | | | | Phone: | [address] | | | | | | [phone] | Phone: | | | | | | Fax: | [phone] | | | | | | [phone] | Fax: | | | | | | | [phone] | +--------+--------+ + + + + Encounter Details +--------+---------+ + + + | Date | Type | Department | Care Team | Description | +--------+---------+ + + + | 06/25/ | Office | [facility] | Jared Mcdonough, | Chronic obstructive | | 2017 | Visit | MED CTR CARDIAC | [address] | pulmonary disease, | | | | REHABILITATION [address] | [place], | unspecified COPD | | | | [address] [place] | [place] [address] | type (HCC) (Primary | | | | [place] [address] | [phone] | Dx) | | | | [phone] | | | +--------+---------+ + + + [...] of this encounter Progress Nima Plunkett-Tricia Crawley, RECORDS MANAGEMENT ANALYST - 06/25/2016 1:10 PM PDT [facility] CARDIAC REHABILITATION [address] [facility] [address] Cardiac Rehab Date: 06/25/2016 Patient Information Patient [...] | | | | | [place] [address] | | | | | | [phone] | | | | | | | | +--------+---------+ + + + documented as of this encounter Visit Diagnoses + + | Diagnosis | + + | Chronic obstructive pulmonary disease, unspecified COPD type (HCC) - Primary | + + documented in this encounter"
--- OUTSIDE RECORDS SUMMARY | ~2019-01-15 | XMS | Encounter Summary ---
Demographics + + + | Address | [address] | | | [place] [address] | + + + | Home Phone [...] Team Providers + +------+ + | Care Slag Worker Name | Role | Phone | [...] [address] | CALL) | | | | [place], [place] | [address] [facility] | | | | | [address] | [place] [address] | | | | | [phone] | [phone] | | | | | | | [...] [place] | | | | | | [address] | | | | | | | | +--------+---------+ + + + | 11/24/ | Office | Cardiology | [place], | | | 2019 | Visit | | SINDHU Erickson [address] | | | | | | [place], | | | | | | [place] [address] | | | | | | [phone] | | | | | | | | +--------+---------+ + + + documented as of this encounter Visit Diagnoses Not on filedocumented in this encounter"
--- OUTSIDE RECORDS SUMMARY | ~2019-01-15 | XMS | Encounter Summary ---
Demographics + + + | Address | [address] | | | [place] [address] | + + + | Home Phone [...] Team Providers + +------+ + | Care Keyboard Teacher Name | Role | Phone | [...] | | | | | pulmonary | [address] | [address] | | | | | disease, | [place], | [place] | | | | | unspecified | [place] [address] | [place], [place] | | | | | COPD type | Phone: | [address] | | | | | (HCC) | [phone] | Phone: | | | | | Pulmonary | Fax: | [phone] | | | | | emphysema, | [phone] | Fax: | | | | | unspecified | | [phone] | | | | | emphysema | | | | | | | type ([facility]) | | | +--------+ + + + + + Encounter Details +--------+---------+ + + + | Date | Type | Department | Care Team | Description | +--------+---------+ + + + | 05/28/ | Office | [facility] | Jared Mcdonough, | Chronic obstructive | | 2017 | Visit | MED CTR CARDIAC | [address] | pulmonary disease, | | | | REHABILITATION [address] | [place], | unspecified COPD | | | | [address] [place] | [place] [address] | type (HCC) (Primary | | | | [place] [address] | [phone] | Dx); Pulmonary | | | | [phone] | | emphysema, | | | | [...] Desean Chris - 05/28/2016 3:42 PM PDT [facility] CARDIAC REHABILITATION [address] [place] [address] Cardiac Rehab Date: 05/28/2016 Patient Information Patient [...] | | | | [place] | | | | | | [address] | | | | | | | | +--------+---------+ + + + | 11/24/ | Office | Cardiology | [place], | | | 2019 | Visit | | SINDHU Erickson [address] | | | | | | [place], | | | | | | [place] [address] | | | | | | [phone] | | | | | | | | +--------+---------+ + + + documented as of this encounter Visit Diagnoses + + | Diagnosis | + + | Chronic obstructive pulmonary disease, unspecified COPD type (HCC) - Primary | + + | Pulmonary emphysema, unspecified emphysema type (HCC) | + + documented in this encounter"
--- OUTSIDE RECORDS SUMMARY | ~2019-01-15 | XMS | Encounter Summary ---
Demographics + + + | Address | [address] | | | [place] [address] | + + + | Home Phone [...] Team Providers + +------+ + | Care Harness Fitter Name | Role | Phone | + [...] [address] | | | | | [place], | [place] | | | | | [place] [address] | [address] | | | | | [phone] | | | +--------+--------+ + + + [...] [place] | | | | | | [address] | | | | | | | | +--------+---------+ + + + | 11/24/ | Office | Cardiology | [place], | | | 2019 | Visit | | SINDHU Erickson [address] | | | | | | [place] | | | | | | [place] [address] | | | | | | [phone] | | | | | | | | +--------+---------+ + + + documented as of this encounter Visit Diagnoses Not on filedocumented in this encounter"
--- OUTSIDE RECORDS SUMMARY | ~2019-01-15 | XMS | Encounter Summary ---
Demographics + + + | Address | [address] | | | [place] [address] | + + + | Home Phone [...] Team Providers + +------+ + | Care Development Spec Name | Role | Phone | [...] + | 08/23/ | Telephone | [facility] | Jared Mcdonough, | Records Request | | 2013 | | CARDIOLOGY [address] | MD [address] [place] | | | | | [place], | [place], | | | | | [place] [address] | [place] [address] | | | | | [phone] | [phone] | | | | | | | [...] [place] | | | | | | [address] | | | | | | | | +--------+---------+ + + + | 11/24/ | Office | Cardiology | [place], | | | 2019 | Visit | | SINDHU Erickson [address] | | | | | | [place] | | | | | | [place] [address] | | | | | | [phone] | | | | | | | | +--------+---------+ + + + documented as of this encounter Visit Diagnoses Not on filedocumented in this encounter"
--- OUTSIDE RECORDS SUMMARY | ~2019-01-15 | XMS | Encounter Summary ---
Demographics + + + | Address | [address] | | | [place] [address] | + + + | Home Phone [...] Team Providers + +------+ + | Care Furniture Salesperson Name | Role | Phone | [...] | obstruction, not | | | | [place], | [place], [place] | elsewhere classified | | | | [place] [address] | [address] | ([facility]) (Primary Dx) | | | | [phone] | | | +--------+ + + + [...] [place] | | | | | | [address] | | | | | | | | +--------+---------+ + + + | 11/24/ | Office | Cardiology | [place], | | | 2019 | Visit | | SINDHU Erickson [address] | | | | | | [place], | | | | | | [place] [address] | | | | | | [phone] | | | | | | | | +--------+---------+ + + + documented as of this encounter Visit Diagnoses + + | Diagnosis | + + | Chronic airway obstruction, not elsewhere classified - Primary | + + documented in this encounter"
--- OUTSIDE RECORDS SUMMARY | ~2019-01-15 | XMS | Encounter Summary ---
Demographics + + + | Address | [address] | | | [place] [address] | + + + | Home Phone [...] Team Providers + +------+ + | Care Status Controller Name | Role | Phone | + +------+ + | uJan Cherry DO | PCP | | + +------+ + Encounter Details +--------+ + + + + | Date | Type | Department | Care Team | Description | +--------+ + + + + | 04/12/ | Hospital | [facility] | Offenstein, | COPD exacerbation | | 2013 | Encounter | MED CTR GENERIC OP | Loreta Alonso MD | ([facility]) | | | | CONV DEPT [address] | | | | | | [place], | | | | | | [place] [address] | | | | | | [phone] | | | +--------+ + + + [...] | | | | | order to [facility]. | | | | | + [...] days. | | | | | | ([facility] [...] [place] | | | | | | [id number] | | | | | | | | +--------+---------+ + + + | 11/24/ | Office | Cardiology | [place] | | | 2019 | Visit | | SINDHU Erickson [address] | | | | | | [place], | | | | | | [place] [address] | | | | | | [phone] | | | | | | | [...] | + + + + + | [facility] | [address] | [place] | [phone] | | [facility] | | [address] | | | - LABORATORY | | | | + + + + + | [facility] | [address] | [place], [place] | | | [facility] | | [address] | | | - LABORATORY | | [...] + | [facility] | [address] | [place] | [phone] | | [facility] | | [address] | | | - LABORATORY | | | | + + + + + | [facility] | [address] | [place], [place] | | | [facility] | | [address] | | | - LABORATORY | | | | + + + + + documented in this encounter Visit Diagnoses + + | Diagnosis | + + | COPD exacerbation (HCC) Obstructive chronic bronchitis with exacerbation | + + documented in this encounter"
--- OUTSIDE RECORDS SUMMARY | ~2019-01-15 | XMS | Encounter Summary ---
Demographics + + + | Address | [address] | | | [place] [address] | + + + | Home Phone [...] Providers + +------+ + | Care Supervisor Polishing Name | Role | Phone | + [...] + + | 11/06/ | Office | [facility] | [place], | Palpitations | | 2017 | Visit | CARDIOLOGY [address] | SINDHU Erickson [address] | (Primary Dx); | | | | [place], | [place], | Paroxysmal atrial | | | | [place] [address] | [place] [address] | tachycardia (HCC); | | | | [phone] | [phone] | Chest pain, | | | | [...] takes this da rigoberto Respiratory Therapy Supplies [facility] Please provide patient with necessary CPAP supplies ( she did not specify, okay to send order as appropriate) Diagnosis Code(s)327.23 . Length of Need 99 months. Please send order to [facility]. 1 each 0 Respiratory Therapy Supplies [facility] Change CPAP back to 11-14 cm H2O. All necessary suppl ies. No oxygen bleed in. Diagnosis Code(s)327.23. Length of Need: Lifetime. Please send orde r to [facility]. This is not a new order, [...] has shortened Confirmed by CLAY SANCHEZ MD ([id number]) on 10/16/2016 4:31:30 PM LAB RESULTS reviewed during visit today primarily from [facility]: LIPID Lab Results Component Value Date [...] PLTEX 370 07/11/2014 I reviewed records from [facility] for Holter report on 10/18/2016 which is [...] She was seen at the ED of [facility] 3 weeks ago [...] a class II of [place] [employer] functional class. There is [...] and v entricular function done at the [facility]. LVEF 78%. C. [...] this chart may have been created with [employer] voice recognition software. Occasi onal wrong-word or [...] | | | | [place] | | | | | | [address] | | | | | | | | +--------+---------+ + + + | 11/24/ | Office | Cardiology | [place], | | | 2019 | Visit | | SINDHU Erickson [address] | | | | | | [place], | | | | | | [place] [address] | | | | | | [phone] | | | | | | | [...]
--- OUTSIDE RECORDS SUMMARY | ~2019-01-15 | XMS | Encounter Summary ---
Demographics + + + | Address | [address] | | | [place] [address] | + + + | Home Phone [...] Team Providers + +------+ + | Care Seedling Sorter Name | Role | Phone | [...] [place] | oximetry) | | | | [place], | [place] | | | | | [place] [address] | [address] | | | | | [phone] | | | +--------+ + + + [...] [place] | | | | | | [place] [address] | | | | | | [phone] | | | | | | | | +--------+---------+ + + + documented as of this encounter Visit Diagnoses Not on filedocumented in this encounter"
--- OUTSIDE RECORDS SUMMARY | ~2019-01-15 | XMS | Encounter Summary ---
Demographics + + + | Address | [address] | | | [place] [address] | + + + | Home Phone [...] Team Providers + +------+ + | Care Statistical Technician Name | Role | Phone | [...] [address] | | | | | [place], | [address] [place] | | | | | [place] [address] | [place] [address] | | | | | [phone] | [phone] | | | | | | | [...] Speech Pathologist - 07/18/2016 10:08 AM [facility] [address] [facility] [address] Cancellation/No Show Date: 07/18/2016 Patient Information Patient [...] [place] | | | | | | [id number] | | | | | | | | +--------+---------+ + + + | 11/24/ | Office | Cardiology | [place] | | | 2019 | Visit | | SINDHU Erickson [address] | | | | | | [place] | | | | | | [place] [address] | | | | | | [phone] | | | | | | | | +--------+---------+ + + + documented as of this encounter Visit Diagnoses Not on filedocumented in this encounter"
--- OUTSIDE RECORDS SUMMARY | ~2019-01-15 | XMS | Encounter Summary ---
Demographics + + + | Address | [address] | | | [place] [address] | + + + | Home Phone [...] Providers + +------+ + | Care Shower Doors And Panels Fabricator Name | Role | Phone | + +------+ + PCP | Unavailable | + +------+ + Encounter Details +--------+ + + + + | Date | Type | Department | Care Team | Description | +--------+ + + + + | 12/01/ | [facility] | [facility] | | | | 2008 - | Encounter | MED CTR OP REHAB | | | | | | [address] | | | | 12/24/ | | [place] [address] | | | | 2008 | | [phone] | | | +--------+ + + + [...] [place] | | | | | | [address] | | | | | | | | +--------+---------+ + + + | 11/24/ | Office | Cardiology | [place], | | | 2020 | Visit | | SINDHU Erickson [address] | | | | | | [place], | | | | | | [place] [address] | | | | | | [phone] | | | | | | | | +--------+---------+ + + + documented as of this encounter Visit Diagnoses Not on filedocumented in this encounter"
--- OUTSIDE RECORDS SUMMARY | ~2019-01-15 | XMS | Encounter Summary ---
Demographics + + + | Address | [address] | | | [place] [address] | + + + | Home Phone [...] Team Providers + +------+ + | Care Classification And Treatment Director Name | Role | Phone | + +------+ + | Juan Cherry DO | PCP | | + +------+ + Encounter Details +--------+ + + + + | Date | Type | Department | Care Team | Description | +--------+ + + + + | 02/26/ | Hospital | [facility] | Dio Yun | Dysphagia, | | 2017 | Encounter | MED CTR XRAY [address] | MD [address] | unspecified type | | | | [place] | [address] | | | | | [place] [address] | [place], [place] | | | | | [phone] | [address] | | | | | | [phone] | | | | | | | [...] | | | | send order to [facility] | | | | | | | [...] | 0 | 10/13/19 | | | Hluxiijcas-BAOL-Jlmz | mouth as needed. | | | 16 | 7 | | -Cod [id number] MG | | | | | | [...] | | | | | | [place] [address] | | | | | | [phone] | | | | | | | [...]
--- OUTSIDE RECORDS SUMMARY | ~2019-01-15 | XMS | Encounter Summary ---
Demographics + + + | Address | [address] | | | [place] [address] | + + + | Home Phone [...] Team Providers + +------+ + | Care Forging Press Operator Name | Role | Phone [...] Description | +--------+---------+ + + + | 04/14/ | [facility] Brian Miranda | Sprain of chest wall | | 2013 | Visit | OCCUPATIONAL [facility] | [address] | (Primary Dx); Place | | | | [address] | [facility] | of occurrence, | | | | [address] [place] | [place] [address] | industrial places | | | | [place], [place] | [phone] | and premises | | | | [address] | | | | | | [phone] | | | +--------+---------+ + + + [...] + + + | Blood Pressure | 106/58 | 04/14/2013 8:55 AM | | | | | PST | | + + + + + | Pulse | 100 | 04/14/2013 8:55 AM | | | | | PST | | + + + + + | Temperature | 36.2 C (97.1 F) | 04/14/2013 8:55 AM | | | | | PST | | + + + + + | Respiratory Rate | 20 | 04/14/2013 8:55 AM | | | | | PST | | + + + + + | Oxygen Saturation | - | - | | + + + + + | Inhaled Oxygen | - | - | | | Concentration | | | | + + + + + | Weight | 66.2 kg (146 lb) | 04/14/2013 8:55 AM | | | | | PST | | + + + + + | Height | 157.5 cm (5' 2") | 04/14/2013 8:55 AM | | | | | PST | | + + + + + | Body Mass Index | 26.7 | 04/14/2013 8:55 AM | | | | | PST | | + + + + + documented in this encounter Progress Notes Brian Miranda MD - 04/14/2013 11:10 AM PSTSee dictation [id number] lisha d by Brian Miranda MD at 04/14/2013 11:11 AM Brian Avendano MD - 04/14/19 14 12:00 AM PST OCCUPATIONAL MEDICINE [address] [place] [address] [place] [address] FAX: [phone] OFFICE VISIT Claim Number: [id number] Date of Injury: 04/05/2013 Employer: [employer] Guarantor: Jelani Burrows COMPLAINT: Chest wall sprain, scheduled 1 week followup. S: The injured worker is 48 years of age who presents for a scheduled followup appointment for her care of the chest wall sprain. She is doing a little bit better but she notes maria t she had quite a bit of pain after I last saw her which was ongoing and she voluntarily el ected to not go for modified duty job several days because of those pain levels. She repor kelley no other new development of symptomatology such as shortness of breath, angina-like niles ns, palpitations, dizziness, lightheaded, syncope, abdominal complaints, or other musculosk eletal or neurologic complaints. She did make a trip to the emergency room for this condit ion because of the severity of the pain. Was given an injection of Toradol which appears to have been helpful for her pain level and given a prescription to take oral Toradol. She w as advised to only take this at a maximum of a 5-day period of time and she is using this i n an intermittent fashion at this time. OBJECTIVE VITAL SIGNS: Unremarkable. GENERAL: No acute distress. SKIN AND INTEGUMENT: Warm, dry. NECK: Normal to inspection. No deformity. No point tenderness. No decrease in range of gurmeet on. CHEST: The injured worker had difficulty lying down for cardiac auscultation secondary to her chest pain. She was examined sitting up. Her lungs were clear on auscultation and sh e was able to take a reasonably good deep breath without causing severe discomfort. The nir ngs again showed a mild end-expiratory wheeze (she does have a history of COPD). CARDIAC: Exam from the sitting position shows a regular rhythm. No murmur was heard. Palpation of t he chest wall in the sternal and the left parasternal area did not bring about increased di scomfort (it is recalled that on our last evaluation a week ago, even the anticipation of a palpation exam on the chest wall caused great anxiety in this injured worker, so she has co me a long way in that regard). No bony abnormalities palpated. ABDOMEN: Soft, nontender. She had no compalints of abdominal symptoms. EXTREMITIES: She was able to forward flex and elevate her arms above her head. She had some discomfort with trunk rotation. IMAGING/DIAGNOSTICS: None appear to be indicated based on our evaluation this date. PENDING INTERVENTIONS: Continue conservative management. She does seem to be making reason able progress. A: CHEST WALL SPRAIN. SATISFACTORY PROGRESS WITH CONSERVATIVE TREATMENT. EXTREMELY HIGH P AIN LEVELS WHICH ARE NOW IMPROVED. P: We have talked about using the Toradol sparingly and continuing with the other medicati ons which have been prescribed for this condition. She is eligible for continued modified d uty work and based on her good progress thus far, I am going to see her back in a 2-week pe riod of time to assess whether she can do a trial of return to regular work. She voiced un derstanding and agreement. We did talk about switching from exclusive cold pack applicatio n to cold followed by warm 4 to 5 times per day. E: Modified duty. R: Restrictions are 10 pound lifting limit. No exertional pushing or pulling. Limited rosa ding and twisting. No transfers. Impairment undetermined but based on current objective f indings, it is not felt to be a likely consequence of this injury. She is not MMI status. Srinath Miranda MD / AF JOB #: [id number] signed by Brian Miranda MD at 04/15/2013 5:32 PM PSTd ocumented in this encounter Plan of [...] [place] | | | | | | [id number] | | | | | | | | +--------+---------+ + + + | 11/24/ | Office | Cardiology | [place], | | | 2019 | Visit | | SINDHU Erickson [address] | | | | | | [place], | | | | | | [place] [address] | | | | | | [phone] | | | | | | | [...]
--- OUTSIDE RECORDS SUMMARY | ~2019-01-15 | XMS | Encounter Summary ---
Demographics + + + | Address | [address] | | | [place] [address] | + + + | Home Phone [...] Team Providers + +------+ + | Care Call Center Specialist Name | Role | Phone | [...] | with brief | [address] | [place] | | | | n | loss of | [address] | [place], | | | | | consciousnes | [place], | [place] [address] | | | | | s | [place] [address] | Phone: | | | | | Post-concuss | Phone: | [phone] | | | | | ion vertigo | [phone] | Fax: | | | | | [phone] | Fax: | [phone] | | | | | (ICD-10-CM) | [phone] | | | | | | - [...] + + | 06/05/ | Office | [facility] | Aaron Rodriguez, | Dizziness (Primary | | 2017 | Visit | MED CTR THERAPY PT | MD [address] | Dx); Impaired | | | | OP [address] | [place] | mobility and | | | | [place] | [id number] | activities of daily | | | | [address] | | living; Concussion | | | | [phone] | Lakeshia Cleary, PT | with brief (less | | | | | [address] | than one hour) loss | | | | | [place] | of consciousness; | | | | | [address] | Intractable acute | | | | [...] might be different from t he original. [facility] THERAPY PT OP [address] [place] [address] Physical Therapy Daily Treatment Note Date: 06/05/2016 [...] Rehab Precautions Office Visit from 05/01/2016 in [facility] CTR THERAPY PT OP Rehab Precautions [...] [place] | | | | | | [address] | | | | | | | | +--------+---------+ + + + | 11/24/ | Office | Cardiology | [place], | | | 2020 | Visit | | SINDHU Erickson [address] | | | | | | [place], | | | | | | [place] [address] | | | | | | [phone] | | | | | | | [...]
--- OUTSIDE RECORDS SUMMARY | ~2019-01-15 | XMS | Encounter Summary ---
Demographics + + + | Address | [address] | | | [place] [address] | + + + | Home Phone [...] Team Providers + +------+ + | Care Spinning Frame Fixer Name | Role | Phone | [...] [place] | oximetry) | | | | [place], | [place] | | | | | [place] [address] | [address] | | | | | [phone] | | | +--------+ + + + [...] | | | | | | [place] | | | | | | [place] [address] | | | | | | [phone] | | | | | | | | +--------+---------+ + + + documented as of this encounter Visit Diagnoses Not on filedocumented in this encounter"
--- OUTSIDE RECORDS SUMMARY | ~2019-01-15 | XMS | Encounter Summary ---
Demographics + + + | Address | [address] | | | [place] [address] | + + + | Home Phone [...] Team Providers + +------+ + | Care Area Coordinator Name | Role | Phone | [...] [address] | | | | | [place], | [place], | | | | | [place] [address] | [place] [address] | | | | | [phone] | [phone] | | | | | | | [...] [place] | | | | | | [address] | | | | | | | | +--------+---------+ + + + | 11/24/ | Office | Cardiology | [place], | | | 2019 | Visit | | SINDHU Erickson [address] | | | | | | [place], | | | | | | [place] [address] | | | | | | [phone] | | | | | | | [...]
--- OUTSIDE RECORDS SUMMARY | ~2019-01-15 | XMS | Encounter Summary ---
Demographics + + + | Address | [address] | | | [place] [address] | + + + | Home Phone [...] Team Providers + +------+ + | Care Ruffling Hemmer Automatic Name | Role | Phone | [...] | | | | | [address] [place] | | | | | | [place] [address] | | | | | | [phone] | | | +--------+ + + + [...] encounter Progress Notes Kevin Weber, PT - 02/14/2014 1:17 PM [facility] [address] [place] [address] Physical Therapy Discharge Note Date: 02/14/2014 Patient [...] | | | | | | [place] [address] | | | | | | [phone] | | | | | | | | +--------+---------+ + + + documented as of this encounter Visit Diagnoses Not on filedocumented in this encounter"
--- OUTSIDE RECORDS SUMMARY | ~2019-01-15 | XMS | Encounter Summary ---
Demographics + + + | Address | [address] | | | [place] [address] | + + + | Home Phone [...] Team Providers + +------+ + | Care King Maker Name | Role | Phone | + +------+ + | Juan Cherry DO | PCP | | + +------+ + Encounter Details +--------+ + + + + | Date | Type | Department | Care Team | Description | +--------+ + + + + | 10/19/ | Abstract | [facility] [place] | [place], | | | 2018 | | CARDIOLOGY [address] | [place] EricksonP [address] | | | | | [place], | [place], | | | | | [place] [address] | [place] [address] | | | | | [phone] | [phone] | | | | | | | [...] | | | | [address] [place], [place] | | | | | | [address] | | | | | | | | +--------+---------+ + + + | 11/24/ | Office | Cardiology | [place], | | | 2019 | Visit | | SINDHU Erickson [address] | | | | | | [place], | | | | | | [place] [address] | | | | | | [phone] | | | | | | | | +--------+---------+ + + + documented as of this encounter Procedures + +--------+ + + + | Procedure Name | Priori | Date/Time | Associated Diagnosis | Comments | | | ty | | | | + +--------+ + + + | EXTERNAL LAB: [facility] | Routin | 09/29/2018 | | Results for this | | | e | | | procedure are in the | | | | | | results section. | + +--------+ + + + | EXTERNAL LAB: | Routin | 09/29/2018 | | Results for this | | GLUCOSE | e | | | procedure are in the | | | | | | results section. | + +--------+ + + + | EXTERNAL LAB: ALT | Routin | 09/29/2018 | | Results for this | | | e | | | procedure are in the | | | | | | results section. | + +--------+ + + + | EXTERNAL LAB: AST | Routin | 09/29/2018 | | Results for this | | | e | | | procedure are in the | | | | | | results section. | + +--------+ + + + | EXTERNAL LAB: | Routin | 09/29/2018 | | Results for this | | ALKALINE PHOSPHATASE | e | | | procedure are in the | | | | | | results section. | + +--------+ + + + | EXTERNAL LAB: | Routin | 09/29/2018 | | Results for this | | BILIRUBIN, TOTAL | e | | | procedure are in the | | | | | | results section. | + +--------+ + + + | EXTERNAL LAB: | Routin | 09/29/2018 | | Results for this | | ALBUMIN | e | | | procedure are in the | | | | | | results section. | + +--------+ + + + | EXTERNAL LAB: | Routin | 09/29/2018 | | Results for this | | PROTEIN, TOTAL | e | | | procedure are in the | | | | | | results section. | + +--------+ + + + | EXTERNAL LAB: | Routin | 09/29/2018 | | Results for this | | CALCIUM | e | | | procedure are in the | | | | | | results section. | + +--------+ + + + | EXTERNAL LAB: CARBON | Routin | 09/29/2018 | | Results for this | | DIOXIDE | e | | | procedure are in the | | | | | | results section. | + +--------+ + + + | EXTERNAL LAB: | Routin | 09/29/2018 | | Results for this | | CHLORIDE | e | | | procedure are in the | | | | | | results section. | + +--------+ + + + | EXTERNAL LAB: | Routin | 09/29/2018 | | Results for this | | POTASSIUM | e | | | procedure are in the | | | | | | results section. | + +--------+ + + + | EXTERNAL LAB: SODIUM | Routin | 09/29/2018 | | Results for this | | | e | | | procedure are in the | | | | | | results section. | + +--------+ + + + | EXTERNAL LAB: EGFR | Routin | 09/29/2018 | | Results for this | | | e | | | procedure are in the | | | | | | results section. | + +--------+ + + + | EXTERNAL LAB: | Routin | 09/29/2018 | | Results for this | | CREATININE | e | | | procedure are in the | | | | | | results section. | + +--------+ + + + | COMPREHENSIVE | Routin | 09/29/2018 | | Results for this | | METABOLIC PANEL | e | | | procedure are in the | | | | | | results section. | + +--------+ + + + documented in this encounter Results Comprehensive Metabolic Panel (09/29/2018) + +-------+ + + + | Component | Value | Ref Range | Performed | Pathologist | | | | | At | Signature | + +-------+ + + + | Anion Gap | 10 | 3 - 12 mmol/L | | | + +-------+ + + + | Bun/Creatin | 13.04 | | | | | ine | | | | | + +-------+ + + + + + | Specimen | + + | Blood | + + External Lab: BUN (09/29/2018) + +-------+ + + + | Component [...] + +---------+ + + External Lab: Glucose (09/29/2018) + +---------+ + + + | Component | Value | Ref Range | Performed | Pathologist | | | | | At | Signature | + +---------+ + + + | Glucose, | 148 (A) | 70 - 100 | EXTERNAL | | | External | | | LAB | | + +---------+ + + + + +---------+ + + | Performing | Address | City/State/Zipcode | Phone Number | | Organization | | | | + +---------+ + + | EXTERNAL LAB | | | | + +---------+ + + External Lab: ALT (09/29/2018) + +-------+ + + + | Component [...] + +---------+ + + External Lab: AST (09/29/2018) + +-------+ + + + | Component | Value | Ref Range | Performed | Pathologist | | | | | At | Signature | + +-------+ + + + | AST, | 33 | 10 - 42 | EXTERNAL | | | External | | | LAB | | + +-------+ + + + + +---------+ + + | Performing | Address | City/State/Zipcode | Phone Number | | Organization | | | | + +---------+ + + | EXTERNAL LAB | | | | + +---------+ + + External Lab: Alkaline Phosphatase (09/29/2018) + +-------+ + + + | Component | Value | Ref Range | Performed | Pathologist | | | | | At | Signature | + +-------+ + + + | ALP, | 67 | 32 - 92 | EXTERNAL | | | External | | | LAB | | + +-------+ + + + + +---------+ + + | Performing | Address | City/State/Zipcode | Phone Number | | Organization | | | | + +---------+ + + | EXTERNAL LAB | | | | + +---------+ + + External Lab: Bilirubin, Total (09/29/2018) + +-------+ + + + | Component [...] + +---------+ + + External Lab: Albumin (09/29/2018) + +-------+ + + + | Component | Value | Ref Range | Performed | Pathologist | | | | | At | Signature | + +-------+ + + + | Albumin, | 3.6 | 3.5 - 5 | EXTERNAL | | | External | | | LAB | | + +-------+ + + + + +---------+ + + | Performing | Address | City/State/Zipcode | Phone Number | | Organization | | | | + +---------+ + + | EXTERNAL LAB | | | | + +---------+ + + External Lab: Protein, Total (09/29/2018) + +-------+ + + + | Component | Value | Ref Range | Performed | Pathologist | | | | | At | Signature | + +-------+ + + + | Protein, | 6.3 | 6 - 8.1 | EXTERNAL | [...] + +---------+ + + External Lab: Calcium (09/29/2018) + +-------+ + + + | Component [...] +---------+ + + External Lab: Carbon Dioxide (09/29/2018) + +--------+ + + + | Component | Value | Ref Range | Performed | Pathologist | | | | | At | Signature | + +--------+ + + + | Carbon | 20 (A) | 21 - 31 | EXTERNAL | | | Dioxide, | | | LAB | | | External | | | | | + +--------+ + + + + +---------+ + + | Performing | Address | City/State/Zipcode | Phone Number | | Organization | | | | + +---------+ + + | EXTERNAL LAB | | | | + +---------+ + + External Lab: Chloride (09/29/2018) + +-------+ + + + | Component | Value | Ref Range | Performed | Pathologist | | | | | At | Signature | + +-------+ + + + | Chloride, | 104 | 98 - 107 | EXTERNAL | | | External | | | LAB | | + +-------+ + + + + +---------+ + + | Performing | Address | City/State/Zipcode | Phone Number | | Organization | | | | + +---------+ + + | EXTERNAL LAB | | | | + +---------+ + + External Lab: Potassium (09/29/2018) + +-------+ + + + | Component [...] + +---------+ + + External Lab: Sodium (09/29/2018) + +---------+ + + + | Component | Value | Ref Range | Performed | Pathologist | | | | | At | Signature | + +---------+ + + + | Sodium, | 134 (A) | 135 - 145 | EXTERNAL | | | External | | | LAB | | + +---------+ + + + + +---------+ + + | Performing | Address | City/State/Zipcode | Phone Number | | Organization | | | | + +---------+ + + | EXTERNAL LAB | | | | + +---------+ + + External Lab: eGFR (09/29/2018) + +-------+ + + + | Component [...] + +---------+ + + External Lab: Creatinine (09/29/2018) + +-------+ + + + | Component | Value | Ref Range | Performed | Pathologist | | | | | At | Signature | + +-------+ + + + | Creatinine, | 0.7 | 0.6 - 1.3 | EXTERNAL | [...]
--- OUTSIDE RECORDS SUMMARY | ~2019-01-15 | XMS | Encounter Summary ---
Demographics + + + | Address | [address] | | | [place] [address] | + + + | Home Phone [...] Team Providers + +------+ + | Care Railway Track Worker Name | Role | Phone | [...] [address] | | | | | [place], | [place] | | | | | [place] [address] | [address] | | | | | [phone] | | | +--------+--------+ + + + [...] [place] | | | | | | [address] | | | | | | | | +--------+---------+ + + + | 11/24/ | Office | Cardiology | [place], | | | 2019 | Visit | | SINDHU Erickson [address] | | | | | | [place] | | | | | | [place] [address] | | | | | | [phone] | | | | | | | | +--------+---------+ + + + documented as of this encounter Visit Diagnoses Not on filedocumented in this encounter"
--- OUTSIDE RECORDS SUMMARY | ~2019-01-15 | XMS | Encounter Summary ---
Demographics + + + | Address | [address] | | | [place] [address] | + + + | Home Phone [...] Providers + +------+ + | Care Pharmacy Informaticist Name | Role | Phone | + [...] | with brief | [address] | [place] | | | | n | loss of | [address] | [place], | | | | | consciousnes | [place] | [place] [address] | | | | | s | [place] [address] | Phone: | | | | | Post-concuss | Phone: | [phone] | | | | | ion vertigo | [phone] | Fax: | | | | | [phone] | Fax: | [phone] | | | | | (ICD-10-CM) | [phone] | | | | | | - [...] + + | 06/18/ | Office | [facility] | Aaron Rodriguez, | Dizziness (Primary | | 2017 | Visit | MED CTR THERAPY PT | MD [address] | Dx); Impaired | | | | OP [address] | [place] | mobility and | | | | [place] | [id number] | activities of daily | | | | [address] | | living; Concussion | | | | [phone] | Lakeshia Cleary, PT | with brief (less | | | | | [address] | than one hour) loss | | | | | [place] | of consciousness; | | | | | [address] | Intractable acute | | | | [...] might be different from t he original. [facility] TH[facility] OP [address] [place] [address] Physical Therapy Daily Treatment Note Date: 06/18/2016 [...] | | | | Jose R E [facility] | | | | | | [id number] | | | | | | | | +--------+---------+ + + + | 11/24/ | Office | Cardiology | [place], | | | 2019 | Visit | | SINDHU Erickson [address] | | | | | | [place], | | | | | | [place] [address] | | | | | | [phone] | | | | | | | [...]
--- OUTSIDE RECORDS SUMMARY | ~2019-01-15 | XMS | Encounter Summary ---
Demographics + + + | Address | [address] | | | [place] [address] | + + + | Home Phone [...] Team Providers + +------+ + | Care Photoengraving Machine Operator/Tender Name | Role | Phone | + [...] + + | 11/08/ | Office | [facility] | Lencho Astorga, | Axillary abscess | | 2015 | Visit | CARE [address] | [address] | (Primary Dx) | | | | [place] | [place] | | | | | [address] | [address] | | | | | [phone] | | | +--------+---------+ + + + [...] [place] | | | | | | [address] | | | | | | | | +--------+---------+ + + + | 11/24/ | Office | Cardiology | [place], | | | 2019 | Visit | | SINDHU Erickson W | | | | | | [place] | | | | | | [place] [address] | | | | | | [phone] | | | | | | | | +--------+---------+ + + + documented as of this encounter Visit Diagnoses + + | Diagnosis | + + | Axillary abscess - Primary Cellulitis and abscess of upper arm and forearm | + + documented in this encounter"
--- OUTSIDE RECORDS SUMMARY | ~2019-01-15 | XMS | Encounter Summary ---
Demographics + + + | Address | [address] | | | [place] [address] | + + + | Home Phone [...] Team Providers + +------+ + | Care Barrel Assembler Name | Role | Phone | [...] | Pulmonary | MD Mukul | [address] | | | | | emphysema, | [address] | [place], | | | | | unspecified | [address] | [place] [address] | | | | | emphysema | Jose R E | Phone: | | | | | type (HCC) | [place], [place] | [phone] | | | | | Procedures | [address] | Fax: | | | | | CT Chest wo | Phone: | [phone] | | | | | Contrast | [phone] | | | | | | | Fax: | | | | | | | [phone] | | +--------+--------+ + + + + [...] | Pulmonary | MD Mukul | [address] | | | | | emphysema, | [address] | [place], | | | | | unspecified | [place] | [place] [address] | | | | | emphysema | Jose R E | Phone: | | | | | type (HCC) | [place], [place] | [phone] | | | | | Procedures | [address] | Fax: | | | | | CT Chest wo | Phone: | [phone] | | | | | Contrast | [phone] | | | | | | | Fax: | | | | | | | [phone] | | +--------+--------+ + + + + Encounter Details +--------+ + + + + | Date | Type | Department | Care Team | Description | +--------+ + + + + | 03/05/ | Hospital | [facility] | Mukul Clark MD | Pulmonary emphysema, | | 2017 | Encounter | MED CTR CT [address] | [address] | unspecified | | | | [address] [place], | Jose R E [place], [place] | emphysema type (HCC) | | | | [place] [address] | [address] | | | | | [phone] | | | +--------+ + + + [...] | | | | | order to [facility]. | | | | | [...] | | | send order to [facility] | | | | | [...] | 0 | 10/13/19 | | | Opskotedve-AWPJ-Wtzm | mouth as needed. | | | 16 | 7 | | -Cod [id number] MG | | | | | | [...] | | | | Jose R E [facility] [place] | | | | | | [address] | | | | | | | | +--------+---------+ + + + | 11/24/ | Office | Cardiology | [place], | | | 2019 | Visit | | SINDHU Erickson [address] | | | | | | [place], | | | | | | [place] [address] | | | | | | [phone] | | | | | | | [...] emphysema, unspecified emphysema type (HCC). COMPARISON: | [facility] | | 11/16/2013, 02/09/2010. PROTOCOL: Axial images [...] + | [facility] | [address] | [place] | [phone] | | [facility] | | [address] | | | - IMAGING | | | | + + + + + documented in this encounter Visit Diagnoses + + | Diagnosis | + + | Pulmonary emphysema, unspecified emphysema type (HCC) | + + documented in this encounter
--- OUTSIDE RECORDS SUMMARY | ~2019-01-15 | XMS | Encounter Summary ---
Demographics + + + | Address | [address] | | | [place] [address] | + + + | Home Phone [...] Team Providers + +------+ + | Care Finance Consultant Name | Role | Phone | + +------+ + | Juan Cherry DO | PCP | | + +------+ + Encounter Details +--------+ + + + + | Date | Type | Department | Care Team | Description | +--------+ + + + + | 09/09/ | Hospital | [facility] | Conversion | Pain | | 2015 | Encounter | CONVERSION [address] | Transaction, | | | | | [address] | Provider Unknown | | | | | [place], [place] | [phone] | | | | | [address] | | | | | | [phone] | | | +--------+ + + + [...] | | | | | | | [facility]. | | | | | [...] | | | | | ([facility]) | | | | | [...] | | | | Jose R Snow [facility] | | | | | | [address] | | | | | | | | +--------+---------+ + + + | 11/24/ | Office | Cardiology | [place], | | | 2019 | Visit | | SINDHU Erickson [address] | | | | | | [place], | | | | | | [place] [address] | | | | | | [phone] | | | | | | | [...]
--- OUTSIDE RECORDS SUMMARY | ~2019-01-15 | XMS | Encounter Summary ---
Demographics + + + | Address | [address] | | | [place] [address] | + + + | Home Phone [...] Team Providers + +------+ + | Care Stereo Equipment Salesperson Name | Role | Phone | + +------+ + | Ozzy Delcid MD | PCP | | + +------+ + Encounter Details +--------+ + + + + | Date | Type | Department | Care Team | Description | +--------+ + + + + | 03/29/ | Hospital | [facility] | | | | 2011 | Encounter | MED CTR LABORATORY | | | | | | [address] [place] | | | | | | [place] | | | | | | [address] | | | | | | [phone] | | | +--------+ + + + [...] Jose R Snow [facility] [place] | | | | | | [address] | | | | | | | | +--------+---------+ + + + | 11/24/ | Office | Cardiology | [place], | | | 2019 | Visit | | SINDHU Erickson [address] | | | | | | [place], | | | | | | [place] [address] | | | | | | [phone] | | | | | | | [...] + | [facility] | [address] | [place], [place] | [phone] | | [facility] | | [address] | | | - LABORATORY | | | | + + + + + | [facility] | [address] | [place], [place] | | | [facility] | | [address] | | | - LABORATORY | | [...] [place] | | | | | | [address] CLIA: [id number] | | | | | | | | | | + + + + + + + + | Specimen | + + | | + + + + + + + | Performing | Address | City/State/Zipcode | Phone Number | | Organization | | | | + + + + + | [facility] | [address] | [place], [place] | [phone] | | [facility] | | [address] | | | - LABORATORY | | | | + + + + + | [facility] | [address] | [place], [place] | | | [facility] | | [address] | | | - LABORATORY | | [...] | performed on the | uIU/mL | [facility] | | | | Blake De [...] + | [facility] | [address] | [place] | [phone] | | [facility] | | [address] | | | - LABORATORY | | | | + + + + + | [facility] | [address] | [place] | | | [facility] | | [address] | | | - LABORATORY | | [...] + | [facility] | [address] | [place] | [phone] | | [facility] | | [address] | | | - LABORATORY | | | | + + + + + | [facility] | [address] | [place], [place] | | | [facility] | | [address] | | | - LABORATORY | | [...] + | [facility] | [address] | [place] | [phone] | | [facility] | | [address] | | | - LABORATORY | | | | + + + + + | [facility] | [address] | [place] | | | [facility] | | [address] | | | - LABORATORY | | | | + + + + + documented in this encounter Visit Diagnoses Not on filedocumented in this encounter"
--- OUTSIDE RECORDS SUMMARY | ~2019-01-15 | XMS | Encounter Summary ---
Demographics + + + | Address | [address] | | | [place] [address] | + + + | Home Phone [...] Team Providers + +------+ + | Care Web Marketing Manager Name | Role | Phone | [...] | | | | CLINIC [address] | [address] [place] | Dx) | | | | [place] | [place] [address] | | | | | [address] | [phone] | | | | | [phone] | | | +--------+ + + + [...] [place] | | | | | | [address] | | | | | | | | +--------+---------+ + + + | 11/24/ | Office | Cardiology | [place], | | | 2019 | Visit | | SINDHU Erickson [address] | | | | | | [place], | | | | | | [place] [address] | | | | | | [phone] | | | | | | | [...] + | [facility] | [address] | [place] | [phone] | | [facility] | | [address] | | | - LABORATORY | | [...] ST. | [address] | [place] | [phone] | | [facility] | | [address] | | | - LABORATORY | | [...] [address] | [place] | [phone] | | [facility] | | [address] | | | - LABORATORY | | [...] ST. | [address] | [place] | [phone] | | [facility] | | [address] | | | - LABORATORY | | [...] | 0.84 | 0.60 - 1.30 | [facility] | | | | | mg/dL | [facility] | | | | | | MEDICAL | | | | | | CENTER - | | | | | | LABORATORY | | + + + + + + | eGFR if not | >60Comment: GLOMERULAR | >=60 | [place] | | | | FILTRATION | mL/min/1.73m2 | [facility] | | | [place] | RATE,ESTIMATED | | MEDICAL | | | | mL/min/1.59y0Hqvr than | | CENTER - | | [...] [address] | [place] | [phone] | | [facility] | | [address] | | | - LABORATORY | | | | + + + + + documented in this encounter Visit Diagnoses + + | Diagnosis | + + | Preoperative clearance - Primary Preoperative examination, unspecified | + + documented in this encounter"
--- OUTSIDE RECORDS SUMMARY | ~2019-01-15 | XMS | Encounter Summary ---
Demographics + + + | Address | [address] | | | [place] [address] | + + + | Home Phone [...] Team Providers + +------+ + | Care Slate Roofer Helper Name | Role | Phone | + +------+ + PCP | Unavailable | + +------+ + Encounter Details +--------+ + + + + | Date | Type | Department | Care Team | Description | +--------+ + + + + | 11/08/ | Hospital | [facility] | Ozzy Delcid, | | | 2009 - | Encounter | MED CTR OP REHAB | [address] | | | | | [address] [place] | [place] | | | 11/23/ | | [place] [address] | [address] | | | 2009 | | [phone] | | | +--------+ + + + [...] [place] | | | | | | [address] | | | | | | | | +--------+---------+ + + + | 11/24/ | Office | Cardiology | [place], | | | 2019 | Visit | | SINDHU Erickson W | | | | | | [place] | | | | | | [place] [address] | | | | | | [phone] | | | | | | | | +--------+---------+ + + + documented as of this encounter Visit Diagnoses Not on filedocumented in this encounter"
--- OUTSIDE RECORDS SUMMARY | ~2019-01-15 | XMS | Encounter Summary ---
Demographics + + + | Address | [address] | | | [place] [address] | + + + | Home Phone [...] Team Providers + +------+ + | Care Greenskeeper Head Name | Role | Phone | [...] | | | | OP [address] | [place] | | | | | [place] | [id number] | | | | | [address] | | | | | | [phone] | | | +--------+ + + + [...] [place], PT - 06[facility]24[facility]2016 11[facility] [place] [address] [place] [address] Physical Therapy Discharge Note This discharge is [...] to discharge this patient from [facility]i [facility]. The last progress note or the patients [...] [place] | | | | | | [address] | | | | | | | | +--------+---------+ + + + | 11/24/ | Office | Cardiology | [place], | | | 2019 | Visit | | SINDHU Erickson [address] | | | | | | [place] | | | | | | [place] [address] | | | | | | [phone] | | | | | | | | +--------+---------+ + + + documented as of this encounter Visit Diagnoses Not on filedocumented in this encounter"
--- OUTSIDE RECORDS SUMMARY | ~2019-01-15 | XMS | Encounter Summary ---
Demographics + + + | Address | [address] | | | [place] [address] | + + + | Home Phone [...] Team Providers + +------+ + | Care Hunter Guide Name | Role | Phone | + +------+ + PCP | Unavailable | + +------+ + Encounter Details +--------+ + + + + | Date | Type | Department | Care Team | Description | +--------+ + + + + | 12/19/ | [facility] | [facility] | | | | 2009 | Encounter | MED CTR LABORATORY | | | | | | [address] | | | | | | [place] | | | | | | [address] | | | | | | [phone] | | | +--------+ + + + [...] [place] | | | | | | [address] | | | | | | | | +--------+---------+ + + + | 11/24/ | Office | Cardiology | [place], | | | 2020 | Visit | | SINDHU Erickson [address] | | | | | | [place], | | | | | | [place] [address] | | | | | | [phone] | | | | | | | | +--------+---------+ + + + documented as of this encounter Visit Diagnoses Not on filedocumented in this encounter"
--- OUTSIDE RECORDS SUMMARY | ~2019-01-15 | XMS | Encounter Summary ---
Demographics + + + | Address | [address] | | | [place] [address] | + + + | Home Phone [...] Team Providers + +------+ + | Care Staple Fiber Washer Name | Role | Phone | [...] + + | 11/03/ | Telephone | [facility] | Kevin Sandoval, | Shortness of Breath | | 2013 | | PULMONARY [address] | MD [address] | | | | | [place], | [place] | | | | | [place] [address] | [address] | | | | | [phone] | | | +--------+ + + + [...] | | | | | | [place] [address] | | | | | | [phone] | | | | | | | | +--------+---------+ + + + documented as of this encounter Visit Diagnoses Not on filedocumented in this encounter"
--- OUTSIDE RECORDS SUMMARY | ~2019-01-15 | XMS | Encounter Summary ---
Demographics + + + | Address | [address] | | | [place] [address] | + + + | Home Phone [...] Team Providers + +------+ + | Care Kiln Firer Name | Role | Phone | + [...] CARDIOLOGY [address] | MD [address] | Dx) | | | | [place], | [place], | | | | | [place] [address] | [place] [address] | | | | | [phone] | [phone] | | | | | | | [...] [place] | | | | | | [address] | | | | | | | | +--------+---------+ + + + | 11/24/ | Office | Cardiology | [place], | | | 2019 | Visit | | SINDHU Erickson [address] | | | | | | [place], | | | | | | [place] [address] | | | | | | [phone] | | | | | | | | +--------+---------+ + + + documented as of this encounter Visit Diagnoses + + | Diagnosis | + + | Tachycardia - Primary Tachycardia, unspecified | + + documented in this encounter
--- OUTSIDE RECORDS SUMMARY | ~2019-01-15 | XMS | Encounter Summary ---
Demographics + + + | Address | [address] | | | [place] [address] | + + + | Home Phone [...] Providers + +------+ + | Care Air Chief Marshal Name | Role | Phone | + +------+ + PCP | Unavailable | + +------+ + Encounter Details +--------+ + + + + | Date | Type | Department | Care Team | Description | +--------+ + + + + | 08/18/ | Hospital | [facility] | Lencho Goss MD | | | 2000 | Encounter | MED CTR XRAY [address] | [address] | | | | | [place] | [address] [place], [place] | | | | | [place] [address] | [address] | | | | | [phone] | | | +--------+ + + + [...] [place] | | | | | | [address] | | | | | | | | +--------+---------+ + + + | 11/24/ | Office | Cardiology | [place], | | | 2019 | Visit | | SINDHU Erickson [address] | | | | | | [place] | | | | | | [place] [address] | | | | | | [phone] | | | | | | | | +--------+---------+ + + + documented as of this encounter Visit Diagnoses Not on filedocumented in this encounter"
--- OUTSIDE RECORDS SUMMARY | ~2019-01-15 | XMS | Encounter Summary ---
Demographics + + + | Address | [address] | | | [place] [address] | + + + | Home Phone [...] Providers + +------+ + | Care Nurse Gynecology Name | Role | Phone | + [...] + + | 08/30/ | Emergency | [facility] | Jay, | Tachycardia (Primary | | 2018 | | MED CTR EMERGENCY | Ozzy Kim MD [address] | Dx); Hypokalemia | | | | CENTER [address] | [address] [place] | | | | | [place] | [place] [address] | | | | | [address] | [phone] | | | | | [phone] | | | +--------+ + + + [...] | | | | | order to [facility]. | | | | | [...] | | | | | | | [facility]. | | | | [...] [place] | | | | | | [address] | | | | | | | | +--------+---------+ + + + | 11/24/ | Office | Cardiology | [place], | | | 2019 | Visit | | SINDHU Erickson [address] | | | | | | [place], | | | | | | [place] [address] | | | | | | [phone] | | | | | | | [...] W?MRN: | | | | | | [id number] | | | [id number] | | | his | | | [...] | | | icalte | | | [employer] | | | | +---+--------+ documented in this encounter Results Holter monitor - 48 hour (09/04/2017 10:18 AM PDT) + + + | Narrative | Performed At | + + + | Jared Mcdonough MD 09/04/2017 10:47 PATIENT NAME: | JUNE ALFORD | | Rosario Malik : 1965: AGE: 52 y.o. | | | PRIMARY CARE: Yong | | | DO CAMILLE Cherry PROGRAM PROJECT ANALYST: Jared Mcdonough MD | | | 48-HOUR [...] | | Signed by: Jared Mcdonough MD [facility] 09/04/2017, 10:18 | | + + [...] + | [facility] | [address] | [place] | [phone] | | [facility] | | [address] | | | - LABORATORY | | [...] | | | | | | [employer] | | | | | [...] + | [facility] | [address] | [place] | [phone] | | [facility] | | [address] | | | - LABORATORY | | [...] mL/min/1.73m2 | [facility] | | | [place] | RATE,ESTIMATED | | MEDICAL | | | | mL/min/1.52k0Bmfi than | | CENTER - | | [...] [address] | [place] | [phone] | | [facility] | | [address] | | | - LABORATORY | | [...] | | Basophils | | K/uL | [facility] | | | | | [...] [address] | [place] | [phone] | | [facility] | | [address] | | | - LABORATORY | | [...] | Top Tube | | | [facility] | | | | | [...] [address] | [place] | [phone] | | [facility] | | [address] | | | - LABORATORY | | [...] [address] | [place] | [phone] | | [facility] | | [address] | | | - LABORATORY | | [...] ST. | [address] | [place], [place] | [phone] | | [facility] | | [address] | | | - LABORATORY | | [...] [address] | [place] | [phone] | | [facility] | | [address] | | | - LABORATORY | | [...] + | [facility] | [address] | [place] | [phone] | | [facility] | | [address] | | | - LABORATORY | | [...] + | [facility] | [address] | [place] | [phone] | | [facility] | | [address] | | | - LABORATORY | | [...] | | | | | RAFA PAUL ([id number]) on | | | | | | [...]
--- OUTSIDE RECORDS SUMMARY | ~2019-01-15 | XMS | Encounter Summary ---
Demographics + + + | Address | [address] | | | [place] [address] | + + + | Home Phone [...] Team Providers + +------+ + | Care Private Tutors And Teachers Name | Role | Phone | + [...] | Concussion | Aaron Kim MD | Clothing Pattern Preparer [address] | | | Required | | with brief | [address] | [place] | | | | | loss of | [address] | [place], [place] | | | | | consciousnes | [place], | [address] | | | | | s Word | [place] [address] | Phone: | | | | | finding | Phone: | [phone] | | | | | difficulty | [phone] | Fax: | | | | | [id number] | Fax: | [phone] | | | | | (ICD-10-CM) | [phone] | | | | | | - [...] + + | 06/20/ | Hospital | [facility] | Aaron Rodriguez, | Impaired memory | | 2017 | Encounter | MED CTR SPEECH | MD [address] | (Primary Dx); | | | | THERAPY [address] | [place] | Concussion with | | | | [place], | [address] | brief (less than one | | | | [place] [address] | | hour) loss of | | | | [phone] | Kathi Soto, | consciousness; | | [...] | | | | | order to [facility]. | | | | | + [...] | | | send order to [facility] | | | | | | | [facility]. | | | | | | | [...] | | | | ([facility]) | | | | | | + + + +---------+ + + | | Take 1 capsule by | | 0 | 10/13/19 | | | Mjmiigfsne-ALMW-Wuhp | mouth as needed. | | | 16 | 7 | | -Cod [id number] MG | | | | | | [...] | | | | ([facility]) | | | | | | + [...] Speech Pathologist - 06/21/2016 1:45 PM PDT [facility] [address] [facility] [address] Speech Therapy Daily Treatment Note Date: 06/20/2016 Patient Information Patient Name: Rosario Malik Date of : 1965 Age: 51 y.o. Encounter Diagnoses Code Name Primary? R41.3 Impaired memory Yes S06.0X9A Concussion with brief (less than one hour) loss of consciousness R41.842 Visuospatial deficit R47.89 Word finding difficulty Date of Onset: 03/15/2016 Referring Provider: Aaron Rodriguez MD Rehab Precautions Office Visit from 05/01/2016 in [facility] THERAPY PT OP Rehab Precautions Precautions None Rehab Learning Style [employer] ENGINE RESEARCH ENGINEER OP EVAL from 05/16/2016 in [facility] SPEECH THERAPY Office V isit from 05/01/2016 in [facility] [...] [place] | | | | | | [id number] | | | | | | | | +--------+---------+ + + + | 11/24/ | Office | Cardiology | [place], | | | 2019 | Visit | | SINDHU Erickson [address] | | | | | [address] [place], | | | | | | [place] [id number] | | | | | | [phone] | | | | | | | [...]
--- OUTSIDE RECORDS SUMMARY | ~2019-01-15 | XMS | Encounter Summary ---
Demographics + + + | Address | [address] | | | [place] [address] | + + + | Home Phone [...] Team Providers + +------+ + | Care Merchandise Shopper Name | Role | Phone | + +------+ + | Juan Cherry DO | PCP | | + +------+ + Encounter Details +--------+ + + + + | Date | Type | Department | Care Team | Description | +--------+ + + + + | 09/09/ | Hospital | [facility] | Conversion | Pain | | 2015 | Encounter | CONVERSION [address] | Transaction, | | | | | [address] | Provider Unknown | | | | | [place], [place] | [phone] | | | | | [address] | | | | | | [phone] | | | +--------+ + + + [...] | | | | | order to [facility]. | | | | | [...] | | | send order to [facility] | | | | | | | [...] | | | | | ([facility]) | | | | | [...] | | | | [address] [place] [facility] | | | | | | [address] | | | | | | | | +--------+---------+ + + + | 11/24/ | Office | Cardiology | Flores, | | | 2019 | Visit | | SINDHU Erickson [address] | | | | | | [place], | | | | | | [place] [address] | | | | | | [phone] | | | | | | | [...]
--- OUTSIDE RECORDS SUMMARY | ~2019-01-15 | XMS | Encounter Summary ---
Demographics + + + | Address | [address] | | | [place] [address] | + + + | Home Phone [...] Team Providers + +------+ + | Care Open Hearth Helper Name | Role | Phone | [...] | | | | [facility] | [address] | [address] | | | | | EXERCISE | [place], | [place] | | | | | | [place] [address] | [place], [place] | | | | | | Phone: | [address] | | | | | | [phone] | Phone: | | | | | | Fax: | [phone] | | | | | | [phone] | Fax: | | | | | | | [phone] | +--------+--------+ + + + + Encounter Details +--------+---------+ + + + | Date | Type | Department | Care Team | Description | +--------+---------+ + + + | 07/04/ | Office | [facility] | Jared Mcdonough, | Chronic obstructive | | 2017 | Visit | [facility] CTR CARD[facility]AC | MD Migdalia King | pulmonary disease, | | | | REHABILITATION [address] [place], | unspecified COPD | | | | [address] [place] | [place] [address] | type (HCC) (Primary | | | | [place] [address] | [phone] | Dx); Mild persistent | | | | [phone] | | asthma without | | | [...] this encounter Progress Notes Desean Chris - 07/04/2016 11:46 AM PDTPatient tolerated exercise session without any [...] [place] | | | | | | [address] | | | | | | | | +--------+---------+ + + + | 11/24/ | Office | Cardiology | Flores, | | | 2019 | Visit | | SINDHU Erickson [address] | | | | | | [place], | | | | | | [place] [address] | | | | | | [phone] | | | | | | | [...]
--- OUTSIDE RECORDS SUMMARY | ~2019-01-15 | XMS | Encounter Summary ---
Demographics + + + | Address | [address] | | | [place] [address] | + + + | Home Phone [...] Team Providers + +------+ + | Care Repairer Resistance Welding Machines Name | Role | Phone | + [...] + + | 02/19/ | Office | [facility] | Elda Miranda | Diarrhea (Primary | | 2011 | Visit | [facility] [address] | MD [address] | Dx); Dysuria | | | | [facility] | [address] | | | | | [place] | [place] [address] | | | | | [address] | [phone] | | | | | [phone] | | | +--------+---------+ + + + [...] allergies reviewed. Review of Systems As per [facility] Objective: Physical Exam Vital signs as noted, nursing notes reviewed. Yrhuufy-msej-bvjjyfove well-nourished female in no apparent distress, pleasant [...] [place] | | | | | | [address] | | | | | | | | +--------+---------+ + + + | 11/24/ | Office | Cardiology | Flores, | | | 2019 | Visit | | SINDHU Erickson [address] | | | | | | [place], | | | | | | [place] [address] | | | | | | [phone] | | | | | | | [...] | 1.015 | | | | | [place], | | | | | | UA, [...]
--- OUTSIDE RECORDS SUMMARY | ~2019-01-15 | XMS | Encounter Summary ---
Demographics + + + | Address | [address] | | | [place] [address] | + + + | Home Phone [...] Providers + +------+ + | Care Career Information Specialist Name | Role | Phone | [...] | | | | | [address] | [address] [place], [place] | | | | | [place], [place] | [address] | | | | | [address] | | | | | | [phone] | | | +--------+ + + + [...] +----+---+ + + | | 0 | [place] | | | | 7 | 43-degrees [...] 11/22/15 1025 by | | eral | dskh-juf-flowqb catheter system; | Kelsie Gandhi RN | [...] [place] | | | | | | [address] | | | | | | | | +--------+---------+ + + + | 11/24/ | Office | Cardiology | Flores, | | | 2020 | Visit | | SINDHU Erickson [address] | | | | | | [place], | | | | | | [place] [address] | | | | | | [phone] | | | | | | | [...]
--- OUTSIDE RECORDS SUMMARY | ~2019-01-15 | XMS | Encounter Summary ---
Demographics + + + | Address | [address] | | | [place] [address] | + + + | Home Phone [...] Team Providers + +------+ + | Care Ferry Hand Name | Role | Phone | [...] + | 10/07/ | Telephone | [facility] | Sandoval Kevin, | Other | | 2014 | | PULMONARY [address] | MD [address] | | | | | [place], | [place], [place] | | | | | [place] [address] | [address] | | | | | [phone] | | | +--------+ + + + [...] [place] | | | | | | [address] | | | | | | | | +--------+---------+ + + + | 11/24/ | Office | Cardiology | Flores, | | | 2019 | Visit | | SINDHU Erickson [address] | | | | | | [place] | | | | | | [place] [address] | | | | | | [phone] | | | | | | | | +--------+---------+ + + + documented as of this encounter Visit Diagnoses Not on filedocumented in this encounter"
--- OUTSIDE RECORDS SUMMARY | ~2019-01-15 | XMS | Encounter Summary ---
Demographics + + + | Address | [address] | | | [place] [address] | + + + | Home Phone [...] Team Providers + +------+ + | Care As400 Operator Name | Role | Phone | [...] | | | | [facility] | [address] | [address] | | | | | EXERCISE | [place], | [place] | | | | | | [place] [address] | [place], [place] | | | | | | Phone: | [address] | | | | | | [phone] | Phone: | | | | | | Fax: | [phone] | | | | | | [phone] | Fax: | | | | | | | [phone] | +--------+--------+ + + + + Encounter Details +--------+---------+ + + + | Date | Type | Department | Care Team | Description | +--------+---------+ + + + | 07/02/ | Office | [facility] | Jared Mcdonough, | Chronic obstructive | | 2017 | Visit | MED CTR CARDIAC | MD Migdalia King | pulmonary disease, | | | | REHABILITATION [address] [place], | unspecified COPD | | | | [address] [place] | [place] [address] | type (HCC) (Primary | | | | [place] [address] | [phone] | Dx); Mild persistent | | | | [phone] | | asthma without | | | [...] [place] | | | | | | [address] | | | | | | | | +--------+---------+ + + + | 11/24/ | Office | Cardiology | [place], | | | 2019 | Visit | | SINDHU Erickson [address] | | | | | | [place], | | | | | | [place] [address] | | | | | | [phone] | | | | | | | | +--------+---------+ + + + documented as of this encounter Visit Diagnoses + + | Diagnosis | + + | Chronic obstructive pulmonary disease, unspecified COPD type (HCC) - Primary | + + | Mild persistent asthma without complication Unspecified asthma | + + documented in this encounter"
--- OUTSIDE RECORDS SUMMARY | ~2019-01-15 | XMS | Encounter Summary ---
Demographics + + + | Address | [address] | | | [place] [address] | + + + | Home Phone [...] Team Providers + +------+ + | Care Bounty Hunter Name | Role | Phone | + [...] Alonso MD | | | | | [place], | | | | | | [place] [address] | | | | | | [phone] | | | +--------+--------+ + + + [...] | | | | | | [place] [address] | | | | | | [phone] | | | | | | | | +--------+---------+ + + + documented as of this encounter Visit Diagnoses Not on filedocumented in this encounter"
--- OUTSIDE RECORDS SUMMARY | ~2019-01-15 | XMS | Encounter Summary ---
Demographics + + + | Address | [address] | | | [place] [address] | + + + | Home Phone [...] Providers + +------+ + | Care Operations Inspector Name | Role | Phone | + +------+ + | Juan Cherry DO | PCP | | + +------+ + Reason for Visit +--------+ + | Reason | Comments | +--------+ + | Other | DMSO bladder instillation | +--------+ + Encounter Details +--------+ + + + + | Date | Type | Department | Care Team | Description | +--------+ + + + + | 11/06/ | Clinical | [facility] | Andriy Weber | Interstitial | | 2016 | Support | [address] | MD [address] | cystitis (Primary | | | | [place] | [address] | Dx) | | | | [address] | [place] [address] | | | | | [phone] | [phone] | | | | | | | [...] encounter Progress Notes Nancy Dalal CMA - 11/07/2015 8:57 AM PDT Administrations This Visit dimethyl sulfoxide (RIMSO-50) 50% solution 50 mL Admin Date Action Dose Route Administered By 11/07/2015 Given 50 mL Bladder Instillation Nancy Dalal CMA heparin 10,000 units/mL injection 10,000 Units Admin Date Action Dose Route Administered By 11/07/2015 Given 46012 Units Subcutaneous Nancy Dalal CMA lidocaine 2% injection 20 mL Admin Date Action Dose Route Administered By 11/07/2015 Given 20 mL Infiltration Nancy Dalal CMA sodium bicarbonate 1 mEq/mL injection 10 mEq Admin Date Action Dose Route Administered By 11/07/2015 Given 10 mEq Other Nancy Dalal CMA triamcinolone acetonide (KENALOG-40) 40 mg/mL injection 40 mg Admin Date Action Dose Route Administered By 11/07/2015 Given 40 mg Intramuscular Nancy Dalal CMA ETNancy rowland CMA - 0 11/07/2015 8:44 AM PDTGretmeghna presents for a DMSO bladder instillation #3. Pt. Is in consta nt pain from her bladder. Sterile catheter was placed into the bladder and collected 150cc c lear yellow urine. DMSO mixture was placed into the bladder and the catheter was removed int act. UA dip was negative. P DTdocumented in this encounter Plan of Treatment +--------+---------+ + + + | Date | Type | Specialty | Care Team | Description | +--------+---------+ + + + | 03/01/ | Office | Pulmonology | Mukul Clark MD | | | 2020 | Visit | | [address] | | | | | | [place], [place] | | | | | | [address] | | | | | | | | +--------+---------+ + + + | 11/24/ | Office | Cardiology | [place], | | | 2019 | Visit | | SINDHU Erickson [address] | | | | | | [place], | | | | | | [place] [address] | | | | | | [phone] | | | | | | | | +--------+---------+ + + + documented as of this encounter Procedures + +--------+ + + + | Procedure Name | Priori | Date/Time | Associated Diagnosis | Comments | | | ty | | | | + +--------+ + + + | POCT URINALYSIS, | Routin | 11/07/2015 | Interstitial | Results for this | | AUTO WITH CONF | e | 8:58 AM | cystitis | procedure are in the | | | | PDT | | results section. | + +--------+ + + + documented in this encounter Results POCT Urinalysis Dipstick Automated (11/07/2015 8:58 AM PDT) + + + + + [...] 1.001 - 1.030 | | | | [place], | | | | | | UA, [...] | | ) | | modification) on 10/30/15 at | [...]
--- OUTSIDE RECORDS SUMMARY | ~2019-01-15 | XMS | Encounter Summary ---
Demographics + + + | Address | [address] | | | [place] [address] | + + + | Home Phone [...] Team Providers + +------+ + | Care Preconstruction Manager Name | Role | Phone | [...] [address] | | | | | [place], | [place] | | | | | [place] [address] | [address] | | | | | [phone] | | | +--------+--------+ + + + [...] [place] | | | | | | [address] | | | | | | | | +--------+---------+ + + + | 11/24/ | Office | Cardiology | [place], | | | 2019 | Visit | | SINDHU Erickson [address] | | | | | | [place], | | | | | | [place] [address] | | | | | | [phone] | | | | | | | | +--------+---------+ + + + documented as of this encounter Visit Diagnoses Not on filedocumented in this encounter"
--- OUTSIDE RECORDS SUMMARY | ~2019-01-15 | XMS | Encounter Summary ---
Demographics + + + | Address | [address] | | | [place] [address] | + + + | Home Phone [...] Team Providers + +------+ + | Care Architecture Intern Name | Role | Phone | [...] + + | 04/03/ | Office | [facility] | Flores, | Abnormal stress test | | 2017 | Visit | CARDIOLOGY [address] | SINDHU Erickson [address] | (Primary Dx); | | | | [place], | [place], | Paroxysmal atrial | | | | [place] [address] | [place] [address] | tachycardia (HCC) | | | | [phone] | [phone] | | | | | | | [...] She has not been very active. Margi tracey after her concussion she has had to [...] 4 hours as needed. 360 mL 5 Iefdoopcsd-RPHI-Rtxx-Cod 96-115-41-30 MG CAPS Take 1 capsule by mouth [...] takes this da rigoberto Respiratory Therapy Supplies [facility] Please provide patient with necessary CPAP supplies ( she did not specify, okay to send order as appropriate) Diagnosis Code(s)327.23 . Length of Need 99 months. Please send order to [facility]. 1 each 0 Respiratory Therapy Supplies JIM [...] longer present Confirmed by RAFA WELLS MD ([id number]) on 08/06/2015 9:42:29 AM LAB RESULTS reviewed during visit today primarily from [facility]: LIPID Lab Results Component Value Date CHOLHDL [...] She was seen at the ED of [facility] 3 weeks ago and again 1 [...] She is in a class II of Major Heart Associati on functional class. There is [...] and v entricular function done at the [facility]. LVEF 78%. C. Holter Monitor 08/16/13 [...] this chart may have been created with bigtincan voice recognition software. Occasi onal wrong-word or [...] [place] | | | | | | [address] | | | | | | | | +--------+---------+ + + + | 11/24/ | Office | Cardiology | Flores, | | | 2019 | Visit | | SINDHU Erickson [address] | | | | | | [place], | | | | | | [place] [address] | | | | | | [phone] | | | | | | | [...]
--- OUTSIDE RECORDS SUMMARY | ~2019-01-15 | XMS | Encounter Summary ---
Demographics + + + | Address | [address] | | | [place] [address] | + + + | Home Phone [...] Team Providers + +------+ + | Care Secretary Of Police Name | Role | Phone | + [...] [address] | Loreta Alonso MD | ([facility]) (Primary Dx); | | | | [place], | | GARRY on CPAP; Tobacco | | | | [place] [address] | | abuse | | | | [phone] | | | +--------+---------+ + + + [...] done after today. She is moving to [place] in August. Past Medical History Past Medical [...] not cancer Colonoscopy 03/2010 Colonoscopy: 1995 at [facility] Social History: History Social History Marital Status: Single Spouse Name: N/A Number of Children: 1 Years of Education: 13 Occupational History [employer] Social History Main Topics Smoking [...] Lifetime. Please send order to [facility]. This is not a new [...] 02/24/2011 Tdap 01/22/2008 Dates: 05/11/12-08/08/12 Machine type: [employer]: [employer] CPAP Pressure: 13 cmH2O AHI: 6.1 events/hour [...] try switching her back to auto at 11-30nfP38. Th raven are not typically central apneas, [...] for 10 days. 2.Change CPAP pressure to 11-51sdM2Y. 3.Work on smoking cessation. 4.Bring download to next visit. She was advised to call if new pulmonary symptoms were to develop. Return to clinic in 4 weeks, or sooner with concerns. CC: Juan Cherry Portions of this report were transcribed using voice recognition software. Every effort wa s made to ensure accuracy; however, inadvertent computerized hotel front desk agent errors may be pre sent. documented in [...] [place] | | | | | | [address] | | | | | | | | +--------+---------+ + + + | 11/24/ | Office | Cardiology | Flores, | | | 2020 | Visit | | SINDHU Erickson [address] | | | | | | [place], | | | | | | [place] [address] | | | | | | [phone] | | | | | | | [...]
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
--- OUTSIDE RECORDS SUMMARY | ~2019-01-15 | XMS | Encounter Summary ---
Demographics + + + | Address | [address] | | | [place] [address] | + + + | Home Phone [...] Team Providers + +------+ + | Care Shop Tailor Apprentice Name | Role | Phone | [...] | 08/09/ | Telephone | [facility] [place] | Jared Mcdonough, | Other (Initial | | 2013 | | CARDIOLOGY [address] | [address] [place] | Intake) | | | | [place], | [place], | | | | | [place] [address] | [place] [address] | | | | | [phone] | [phone] | | | | | | | [...] [place] | | | | | | [address] | | | | | | | | +--------+---------+ + + + | 11/24/ | Office | Cardiology | [place], | | | 2019 | Visit | | SINDHU Erickson [address] | | | | | | [place], | | | | | | [place] [address] | | | | | | [phone] | | | | | | | | +--------+---------+ + + + documented as of this encounter Visit Diagnoses Not on filedocumented in this encounter"
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
--- OUTSIDE RECORDS SUMMARY | ~2019-01-15 | XMS | Encounter Summary ---
Demographics + + + | Address | [address] | | | [place] [address] | + + + | Home Phone [...] Providers + +------+ + | Care Instrumentation Specialist Name | Role | Phone | [...] + + | 05/30/ | Office | [facility] | Jamaledgardo Jared, | Chronic obstructive | | 2017 | Visit | MED CTR CARDIAC | MD Migdalia King | pulmonary disease, | | | | REHABILITATION [address] | [place], | unspecified COPD | | | | [place] | [place] [address] | type (HCC) (Primary | | | | [place] [address] | [phone] | Dx); Pulmonary | | | | [phone] | | emphysema, | | | | [...] Desean Chris - 05/30/2016 3:38 PM PDT [facility] CARD[facility] REHABILITATION [address] [place] [address] Cardiac Rehab Date: 05/30/2016 Patient Information Patient [...] | | | | [place] | | | | | | [address] | | | | | | | | +--------+---------+ + + + | 11/24/ | Office | Cardiology | [place], | | | 2019 | Visit | | SINDHU Erickson [address] | | | | | | [place], | | | | | | [place] [address] | | | | | | [phone] | | | | | | | | +--------+---------+ + + + documented as of this encounter Visit Diagnoses + + | Diagnosis | + + | Chronic obstructive pulmonary disease, unspecified COPD type (HCC) - Primary | + + | Pulmonary emphysema, unspecified emphysema type (HCC) | + + documented in this encounter"
--- OUTSIDE RECORDS SUMMARY | ~2019-01-15 | XMS | Encounter Summary ---
Demographics + + + | Address | [address] | | | [place] [address] | + + + | Home Phone [...] Providers + +------+ + | Care Oil Furnace Installer Name | Role | Phone | [...] | | | | | [address] [place] | | | | | | [place] [address] | | | | | | [phone] | | | +--------+ + + + [...] Weber, PT - 05/27/2013 3:22 PM [facility] [address] [facility] [address] Cancellation/No Show Date: 05/27/2013 Patient Information Patient [...] [place] | | | | | | [id number] | | | | | | | | +--------+---------+ + + + | 11/24/ | Office | Cardiology | [place] | | | 2019 | Visit | | SINDHU Erickson [address] | | | | | | [place] | | | | | | [place] [address] | | | | | | [phone] | | | | | | | | +--------+---------+ + + + documented as of this encounter Visit Diagnoses Not on filedocumented in this encounter"
--- OUTSIDE RECORDS SUMMARY | ~2019-01-15 | XMS | Encounter Summary ---
Demographics + + + | Address | [address] | | | [place] [address] | + + + | Home Phone [...] Team Providers + +------+ + | Care Torch Solderer Name | Role | Phone | + +------+ + PCP | Unavailable | + +------+ + Encounter Details +--------+ + + + + | Date | Type | Department | Care Team | Description | +--------+ + + + + | 10/11/ | Hospital | [facility] | Berna Glass MD | HEADACHE; | | 2010 | Encounter | CONVERSION DEP [address] | [address] | Diplopia; | | | | [address] | [place] [address] | Dizziness | | | | [place], [place] | [phone] | | | | | [address] | | | | | | [phone] | | | +--------+ + + + [...] [place] | | | | | | [address] | | | | | | | | +--------+---------+ + + + | 11/24/ | Office | Cardiology | [place], | | | 2019 | Visit | | SINDUH Erickson [address] | | | | | | [place], | | | | | | [place] [address] | | | | | | [phone] | | | | | | | [...] Performed At | + + + | [place] [id number] Ph: | | | Patient Name: JADYN SCHMITZ Date of : | | | 1965 Medical Record: [id number] Account: [id number] | | | Exam Date/Time: 10/11/2010 12:00 [...] The data set was also examined with Medialets 3D software | | | for evaluation [...] - 10/17/2018 5:21 PM PDT | | [facility] | | [facility] [address] | | | | | | Patient Name: JADYN SCHMITZ W | | Date of : 1965 | | Medical Record: [id number] | | Account: [id number] | | | | | | Exam [...] set was also examined with | | Medialets 3D software for evaluation of the cerebral [...]
--- OUTSIDE RECORDS SUMMARY | ~2019-01-15 | XMS | Encounter Summary ---
Demographics + + + | Address | [address] | | | [place] [address] | + + + | Home Phone [...] Team Providers + +------+ + | Care Fingerprinter Name | Role | Phone | + [...] + + | 09/17/ | Telephone | [facility] | Kevin Sandoval, | Other (increased | | 2013 | | PULMONARY [address] | MD [address] | shortness of breath) | | | | [place], | [place], [place] | | | | | [place] [address] | [address] | | | | | [phone] | | | +--------+ + + + [...] [place] | | | | | | [address] | | | | | | | | +--------+---------+ + + + | 11/24/ | Office | Cardiology | [place], | | | 2019 | Visit | | SINDHU Erickson [address] | | | | | | [place], | | | | | | [place] [address] | | | | | | [phone] | | | | | | | | +--------+---------+ + + + documented as of this encounter Visit Diagnoses Not on filedocumented in this encounter"
--- OUTSIDE RECORDS SUMMARY | ~2019-01-15 | XMS | Encounter Summary ---
Demographics + + + | Address | [address] | | | [place] [address] | + + + | Home Phone [...] Team Providers + +------+ + | Care Control Panel Builder Name | Role | Phone | [...] | +--------+ + + + + | 07/29/ | Telephone | [facility] | Weber, Andriy | Other | | 2018 | | [address] | MD [address] | | | | | [place] | THOM [facility] | | | | | [address] | [place] [address] | | | | | [phone] | [phone] | | | | | | | [...] [place] | | | | | | [address] | | | | | | | | +--------+---------+ + + + | 11/24/ | Office | Cardiology | [place], | | | 2019 | Visit | | SINDHU Erickson [address] | | | | | | [place] | | | | | | [place] [address] | | | | | | [phone] | | | | | | | | +--------+---------+ + + + documented as of this encounter Visit Diagnoses Not on filedocumented in this encounter"
--- OUTSIDE RECORDS SUMMARY | ~2019-01-15 | XMS | Encounter Summary ---
Demographics + + + | Address | [address] | | | [place] [address] | + + + | Home Phone [...] Team Providers + +------+ + | Care Axminster Weaver Name | Role | Phone | + +------+ + | Juan Cherry DO | PCP | | + +------+ + Reason for Visit + + + | Reason | Comments | + + + | Follow-up | Tachyarrhythmia | + + + | Results | 48 hour Holter monitor 08/12/2013 ([facility]) | + + + | Palpitations | | + + + Encounter Details +--------+ + + + + | Date | Type | Department | Care Team | Description | +--------+ + + + + | 10/05/ | Off-Site | [facility] [place] | Jared Mcdonough, | Palpitations | | 2013 | Visit | CARDIOLOGY [address] | [address] [place] | (Primary Dx); | | | | [place], | 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 Patient denies chest [...] sleep apnea COPD (chronic obstructive pulmonary disease) ([facility]) Healthcare maintenance Preventative health care GARRY (obstructive sleep apnea) Multiple personality disorder GERD (gastroesophageal reflux disease) Diverticulosis Insomnia Sprain of chest wall Benign neoplasm of pituitary gland and craniopharyngeal duct (pouch) ([facility]) Status post total hysterectomy Irritable colon Hypoxemia ([facility]) Allergic rhinitis Tachycardia Palpitations Tachyarrhythmia [...] Take by mouth Daily. Respiratory Therapy Supplies [facility] Incentive spirometer. Please provide instructions in use. Dx: 848.8 MADELEINE: 3 months 1 each 99 Respiratory Therapy Supplies [facility] Please provide patient with necessary CPAP supplies ( she did not specify, okay to send order as appropriate) Diagnosis Code(s)327.23 . Length of Need 99 months. Please send order to [facility]. 1 each 0 Respiratory Therapy [...] and ventricular function don e at the [facility]. LVEF 78%. C. Holter Monitor 08/16/13 [...] patient will be referred to Dr. Ding, medical billing and coding specialist at [facility] for PAT ablati on 3. Followup in 3 months Electronically signed by: Jared Mcdonough MD [facility] 10/05/2013 11:25 Portions of this chart may have been created with Petflow voice recognition software. Occasi onal wrong-word or [...] | | | | | | [place] [address] | | | | | | [phone] | | | | | | | | +--------+---------+ + + + documented as of this encounter Visit Diagnoses + + | Diagnosis | + + | Palpitations - Primary | + + | Paroxysmal atrial tachycardia (HCC) Paroxysmal supraventricular tachycardia | + + documented in this encounter
--- OUTSIDE RECORDS SUMMARY | ~2019-01-15 | XMS | Encounter Summary ---
Demographics + + + | Address | [address] | | | [place] [address] | + + + | Home Phone [...] Team Providers + +------+ + | Care Reducing Salon Attendant Name | Role | Phone | + +------+ + PCP | Unavailable | + +------+ + Encounter Details +--------+ + + + + | Date | Type | Department | Care Team | Description | +--------+ + + + + | 05/01/ | Hospital | [facility] | Alexi Guaman, | | | 2010 | Encounter | MED CTR EMERGENCY | [address] | | | | | CENTER [address] | [place] | | | | | [place] | [address] | | | | | [address] | | | | | | [phone] | | | +--------+ + + + [...] [place] | | | | | | [address] | | | | | | | | +--------+---------+ + + + | 11/24/ | Office | Cardiology | [place], | | | 2019 | Visit | | SINDHU Erickson [address] | | | | | | [place], | | | | | | [place] [address] | | | | | | [phone] | | | | | | | [...] + | [facility] [facility] | [address] | [place] | [phone] | | [facility] | | [address] | | | - LABORATORY | | | | + + + + + | [facility] [facility] | [address] | [place] | | | [facility] | | [address] | | | - LABORATORY | | [...] [facility] | | | | | | [facility] | | [...] + | [facility] | [address] | [place], [place] | [phone] | | [facility] | | [address] | | | - LABORATORY | | | | + + + + + | [facility] | [address] | [place], [place] | | | [facility] | | [address] | | | - LABORATORY | | | | + + + + + XR Chest PA or AP (05/01/2010 5:32 PM PST) + + | Specimen | + + | | + + + + + | Narrative | Performed At | + + + | [facility] Diagnostic Imaging Department | [facility] | | [address] [facility] | [facility] | | PORTABLE CHEST, 05/01/2010 AT [...] Transcribed Date/Time: | | | 05/02/2010 11:54 Reference Library Assistant: <Electronically Signed | | | by Cesar Ren MD> 05/02/10 1555 | | + + + + ---------+ | Procedure Note | + ---------+ | Reed, Rad Conversion - 04/02/2013 2:24 PM [facility] | | Diagnostic Imaging Department [address] [place] [address] | | PORTABLE CHEST, 05/01/2010 AT 1807 [...] 11:04 Transcribed Date/Time: 05/02/2010 11:54 | | Reference Library Assistant: <Electronically Signed by Cesar Ren MD> 05/02/10 [...] 11:04 | |Transcribed Date/Time: 05/02/2010 11:54 | |Reference Library Assistant: | |<Electronically Signed by Cesar Ren MD> 05/02/10 1555 | + ---------+ + +---------+ + + | Performing | Address | City/State/Zipcode | Phone Number | | Organization | | | | + +---------+ + + | [place] | | | | | [facility] | | | | + +---------+ + + documented in this encounter Visit Diagnoses Not on filedocumented in this encounter"
--- OUTSIDE RECORDS SUMMARY | ~2019-01-15 | XMS | Encounter Summary ---
Demographics + + + | Address | [address] | | | [place] [address] | + + + | Home Phone [...] Providers + +------+ + | Care Logging Equipment Operator Name | Role | Phone [...] | | [place] | THOM [facility] | | | | | [address] | [place] [address] | | | | | [phone] | [phone] | | | | | | | [...] [place] | | | | | | [address] | | | | | | | | +--------+---------+ + + + | 11/24/ | Office | Cardiology | [place], | | | 2019 | Visit | | SINDHU Erickson [address] | | | | | | [place], | | | | | | [place] [address] | | | | | | [phone] | | | | | | | | +--------+---------+ + + + documented as of this encounter Visit Diagnoses Not on filedocumented in this encounter"
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
--- OUTSIDE RECORDS SUMMARY | ~2019-01-15 | XMS | Encounter Summary ---
Demographics + + + | Address | [address] | | | [place] [address] | + + + | Home Phone [...] Team Providers + +------+ + | Care Urologic Nurse Name | Role | Phone | + +------+ + | Juan Cherry DO | PCP | | + +------+ + Encounter Details +--------+ + + + + | Date | Type | Department | Care Team | Description | +--------+ + + + + | 09/08/ | Orders Only | [facility] [place] | Marilyn Osborne, | GARRY (obstructive | | 2014 | | PULMONARY [address] | RN | sleep apnea) | | | | [place], | | | | | | [place] [address] | | | | | | [phone] | | | +--------+ + + + [...] [place] | | | | | | [address] | | | | | | | | +--------+---------+ + + + | 11/24/ | Office | Cardiology | [place], | | | 2020 | Visit | | SINDHU Erickson [address] | | | | | | [place], | | | | | | [place] [address] | | | | | | [phone] | | | | | | | | +--------+---------+ + + + documented as of this encounter Visit Diagnoses + + | Diagnosis | + + | GARRY (obstructive sleep apnea) Obstructive sleep apnea (adult) (pediatric) | + + documented in this encounter"
--- OUTSIDE RECORDS SUMMARY | ~2019-01-15 | XMS | Encounter Summary ---
Demographics + + + | Address | [address] | | | [place] [address] | + + + | Home Phone [...] Providers + +------+ + | Care Quality Analyst Name | Role | Phone | + +------+ + PCP | Unavailable | + +------+ + Encounter Details +--------+ + + + + | Date | Type | Department | Care Team | Description | +--------+ + + + + | 01/23/ | Hospital | [facility] | Ozzy Delcid, | | | 2009 | Encounter | MED CTR XRAY [address] | MD [address] | | | | | [place] | [place], [place] | | | | | [place] [address] | [address] | | | | | [phone] | | | +--------+ + + + [...] [place] | | | | | | [address] | | | | | | | | +--------+---------+ + + + | 11/24/ | Office | Cardiology | [place], | | | 2019 | Visit | | SINDHU Erickson [address] | | | | | | [place], | | | | | | [place] [address] | | | | | | [phone] | | | | | | | | +--------+---------+ + + + documented as of this encounter Visit Diagnoses Not on filedocumented in this encounter"
--- OUTSIDE RECORDS SUMMARY | ~2019-01-15 | XMS | Encounter Summary ---
Demographics + + + | Address | [address] | | | [place] [address] | + + + | Home Phone [...] Team Providers + +------+ + | Care Hotel Desk Clerk Name | Role | Phone | [...] | | [place] | THOM [facility] | | | | | [address] | [place] [address] | | | | | [phone] | [phone] | | | | | | | [...] [place] | | | | | | [address] | | | | | | | | +--------+---------+ + + + | 11/24/ | Office | Cardiology | Flores, | | | 2019 | Visit | | SINDHU Erickson [address] | | | | | | [place], | | | | | | [place] [address] | | | | | | [phone] | | | | | | | | +--------+---------+ + + + documented as of this encounter Visit Diagnoses Not on filedocumented in this encounter"
--- OUTSIDE RECORDS SUMMARY | ~2019-01-15 | XMS | Encounter Summary ---
Demographics + + + | Address | [address] | | | [place] [address] | + + + | Home Phone [...] Team Providers + +------+ + | Care First Beater Name | Role | Phone | + [...] + + | 04/14/ | [facility] | [facility] | Brian Miranda | Sprain of chest wall | | 2013 | Visit | [facility] | MD [address] | (Primary Dx); Place | | | | [address] | [facility] [facility] | of occurrence, | | | | [address] [place] | [place] [address] | industrial places | | | | [place], [place] | [phone] | and premises | | | | [address] | | | | | | [phone] | | | +--------+---------+ + + + [...] MD - 04/14/2013 11:10 AM PSTSee dictation [id number] lisha d by Brian Miranda MD at 04/14/2013 11:11 AM Brian Avendano MD - 04/14/19 14 12:00 AM PST OCCUPATIONAL MEDICINE [address] [place] [address] [place] [address] FAX: [phone] OFFICE VISIT Claim Number: [id number] Date of Injury: 04/05/2013 Employer: [employer] [...] Srinath Miranda MD / AF JOB #: [id number] signed by Brian Miranda MD at 04/15/2013 [...] [place] | | | | | | [id number] | | | | | | | | +--------+---------+ + + + | 11/24/ | Office | Cardiology | [place], | | | 2019 | Visit | | SINDHU Erickson [address] | | | | | | [place], | | | | | | [place] [address] | | | | | | [phone] | | | | | | | [...]
--- OUTSIDE RECORDS SUMMARY | ~2019-01-15 | XMS | Encounter Summary ---
Demographics + + + | Address | [address] | | | [place] [address] | + + + | Home Phone [...] Team Providers + +------+ + | Care Knitting Machine Operator Automatic Name | Role | [...] sleep apnea) | | | | [address] [place] | [place] | (Primary Dx) | | | | [place] [address] | [address] | | | | | [phone] | | | +--------+---------+ + + + [...] machine. She has tried to get her Newser to add the connection part for oxygen to her machine, but it has not happene d. Now she only uses her 3 per minute of supplemental oxygen at night and she has not been u sing her machine for the past few months. 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 She says since she stopped using her [...] years before she was switched to bilevel [id number]. I reviewed the notes from Dr Chris Alarcon in [place], [place].It indicates that patient had CPAP intolerance [...] Daily. Yes Historical ProviderYinka Respiratory Therapy Supplies [facility] Please provide patient with necessary CPAP supplies (she did not specify, okay to send order as appropriate) Diagnosis Code(s)327.23 . Length of Need 99 months. Please send order to [facility]. 01/13/13 Yes Loreta London MD Respiratory Therapy Supplies [facility] Change CPAP back to 11-14 cm H2O. All necessary supplies. No oxygen bleed in. Diagnosis Code(s)327.23. Length of Need: Lifetime. Please send order to [facility]. This is not a new order, just a change in settings. 08/10/12 Yes Loreta Lodnon MD roflumilast (DALIRESP) 500 mcg tablet Take [...] was performed on 04/17/15( Dr. Alarcon in [place], [place]) indicated that . Bilevel-ST was prescribed [...] evidence for hypoventilation. Date, I personally called [facility] and discussed this with one of the staff. If the machine c ould be set up on bilevel-S this should be done(today, I tried to check it but after about 1 0 minutes the machine still was reading the card, and I wonder if it functions properly). Ot herwise, the machine should be replaced with a bilevel-S machine. A staff from [facility] is to c all me tomorrow and [...] this chart may have been created with FundRazr voice recognition software. Occasi onal wrong-word or [...] | | | | [place] | | | | | | [id number] | | | | | | | | +--------+---------+ + + + | 11/24/ | Office | Cardiology | [place], | | | 2019 | Visit | | GeorginaSINDHU reynoso [address] | | | | | | [place], | | | | | | [place] [address] | | | | | | [phone] | | | | | | | | +--------+---------+ + + + documented as of this encounter Visit Diagnoses + + | Diagnosis | + + | GARRY (obstructive sleep apnea) - Primary Obstructive sleep apnea (adult) (pediatric) | + + documented in this encounter
--- OUTSIDE RECORDS SUMMARY | ~2019-01-15 | XMS | Encounter Summary ---
Demographics + + + | Address | [address] | | | [place] [address] | + + + | Home Phone [...] Team Providers + +------+ + | Care Pressroom Supervisor Name | Role | Phone | [...] [address] | | | | | [place], | [place] | | | | | [place] [address] | [address] | | | | | [phone] | | | +--------+--------+ + + + [...] [place] | | | | | | [address] | | | | | | | | +--------+---------+ + + + | 11/24/ | Office | Cardiology | [place], | | | 2019 | Visit | | SINDHU Erickson [address] | | | | | | [place], | | | | | | [place] [address] | | | | | | [phone] | | | | | | | | +--------+---------+ + + + documented as of this encounter Visit Diagnoses Not on filedocumented in this encounter"
--- OUTSIDE RECORDS SUMMARY | ~2019-01-15 | XMS | Encounter Summary ---
Demographics + + + | Address | [address] | | | [place] [address] | + + + | Home Phone [...] Team Providers + +------+ + | Care Wad Impregnator Name | Role | Phone | [...] | | | | | | [place] [address] | | | | | | [phone] | | | +--------+ + + + [...] [place] | | | | | | [address] | | | | | | | | +--------+---------+ + + + | 11/24/ | Office | Cardiology | [place], | | | 2019 | Visit | | SINDHU Erickson [address] | | | | | | [place] | | | | | | [place] [address] | | | | | | [phone] | | | | | | | | +--------+---------+ + + + documented as of this encounter Visit Diagnoses Not on filedocumented in this encounter"
--- OUTSIDE RECORDS SUMMARY | ~2019-01-15 | XMS | Encounter Summary ---
Demographics + + + | Address | [address] | | | [place] [address] | + + + | Home Phone [...] + +------+ + | Care Sheet Metal Superintendent Name | Role | Phone | + +------+ + | Juan Cherry DO | PCP | | + +------+ + Encounter Details +--------+ + + + + | Date | Type | Department | Care Team | Description | +--------+ + + + + | 09/20/ | Orders Only | [facility] | Provider, | | | 2018 | | SYSTEM GENERIC OP | [address] | | | | | CONVERSION [address] | [place]. | | | | | [address] [place], [place] | [place] [address] | | | | | [address] | | | | | | [phone] | | | +--------+ + + + [...] [place] | | | | | | [address] | | | | | | | | +--------+---------+ + + + | 11/24/ | Office | Cardiology | [place], | | | 2020 | Visit | | SINDHU Erickson [address] | | | | | | [place], | | | | | | [place] [address] | | | | | | [phone] | | | | | | | | +--------+---------+ + + + documented as of this encounter Visit Diagnoses Not on filedocumented in this encounter"
--- OUTSIDE RECORDS SUMMARY | ~2019-01-15 | XMS | Encounter Summary ---
Demographics + + + | Address | [address] | | | [place] [address] | + + + | Home Phone [...] Providers + +------+ + | Care Motor Equipment Captain Name | Role | Phone | [...] | | | | [facility] | [address] | [address] | | | | | EXERCISE | [place], | [place] | | | | | | [place] [address] | [place], [place] | | | | | | Phone: | [phone] | | | | | | [phone] | Phone: | | | | | | Fax: | [phone] | | | | | | [phone] | Fax: | | | | | | | [phone] | +--------+--------+ + + + + Encounter Details +--------+---------+ + + + | Date | Type | Department | Care Team | Description | +--------+---------+ + + + | 07/30/ | Office | [facility] | Jared Mcdonough, | Chronic obstructive | | 2017 | Visit | [facility] CTR [facility] | [address] | pulmonary disease, | | | | REHABILITATION [address] | [place] [place], | unspecified COPD | | | | [address] [place] | [place] [address] | type (HCC) (Primary | | | | [place] [address] | [phone] | Dx) | | | | [phone] | | | +--------+---------+ + + + [...] [place] | | | | | | [address] | | | | | | | | +--------+---------+ + + + | 11/24/ | Office | Cardiology | [place], | | | 2019 | Visit | | SINDHU Erickson [address] | | | | | | [place], | | | | | | [place] [address] | | | | | | [phone] | | | | | | | | +--------+---------+ + + + documented as of this encounter Visit Diagnoses + + | Diagnosis | + + | Chronic obstructive pulmonary disease, unspecified COPD type (HCC) - Primary | + + documented in this encounter"
--- OUTSIDE RECORDS SUMMARY | ~2019-01-15 | XMS | Clinical Summary ---
Demographics + + + | Address | [address] | | | [place] [address] | + + + | Home Phone | | + + + | Preferred Language | Unknown | + + + | Marital Status | Single | + + + | Voodoo Affiliation | 1041 | + + + | Race | Unknown | + + + | Ethnic Group | Unknown | + + + Author + + + | Author | [employer] [facility] (Historical as of | | | 10-10-18) | + + + | Organization | [facility] (Historical as of | | | 10-10-18) | + + + | Address | Unknown | + + + | Phone | Unavailable | + + + Support + + +---------+ + | Name | Relationship | Address | Phone | + + +---------+ + | Juana Sainz | ECON | Unknown | | + + +---------+ + | Bill Cotter | ECON | Unknown | | + + +---------+ + Care Team Providers + +------+ + | Care Educational Assistant Name | Role | Phone | + +------+ + | Juan Cherry MD | PP | | + +------+ + Allergies + + + + + + | Active Allergy | Reactions | Severity | Noted | Comments | | | | | Date | | + + + + + + | Doxycycline | Hives | High | 10/20/19 | | | | | | 14 | | + + + + + + | Erythromycin | Other (See Comments) | Medium | 10/20/19 | Bloating and | | | | | 14 | swelling, lips swell | + + + + + + | Meperidine | Other (See Comments) | Medium | 10/20/19 | Panic attacks | | | | | 14 | | + + + + + + | Nsaids | Hives | High | 10/20/19 | | | | | | 14 | | + + + + + + | Onion | Anaphylaxis | High | 10/20/19 | | | | | | 14 | | + + + + + + | Pork Allergy | Other (See Comments) | Medium | 10/20/19 | Confirm with | | | | | 14 | patient | + + + + + + Current Medications + + + +---------+------+------+-------+ | Prescription | Sig. | Disp. | Refills | Star | End | Statu | | | | | | t | Date | s | | | | | | Date | | | + + + +---------+------+------+-------+ | gabapentin | Take 800 mg by mouth | | | | | Activ | | (NEURONTIN) 800 MG | 3 (three) times | | | | | e | | tablet | daily. | | | | | | + + + +---------+------+------+-------+ | levothyroxine | Take 75 mcg by mouth | | | | | Activ | | (SYNTHROID) 75 MCG | every morning | | | | | e | | tablet | before breakfast. | | | | | | + + + +---------+------+------+-------+ | MULTIPLE VITAMINS | Take 1 tablet by | | | | | Activ | | ESSENTIAL PO | mouth daily. | | | | | e | + + + +---------+------+------+-------+ | omeprazole | Take 20 mg by mouth | | | | | Activ | | (PRILOSEC) 20 MG | every morning before | | | | | e | | capsule | breakfast. | | | | | | + + + +---------+------+------+-------+ | traMADol (ULTRAM) | Take 50 mg by mouth | | | | | Activ | | 50 MG tablet | 4 (four) times | | | | | e | | | daily. | | | | | | + + + +---------+------+------+-------+ | ziprasidone | Take 80 mg by mouth | | | | | Activ | | (GEODON) 80 MG | 2 (two) times daily | | | | | e | | capsule | with meals. | | | | | | + + + +---------+------+------+-------+ | propranolol | Take 10 mg by mouth | | | | | Activ | | (INDERAL) 10 MG | 2 (two) times daily. | | | | | e | | tablet | | | | | | | + + + +---------+------+------+-------+ | albuterol | Take 1 ampule by | | | | | Activ | | (ACCUNEB) 1.25 | nebulization every 6 | | | | | e | | MG/3ML nebulizer | (six) hours as | | | | | | | solution | needed for Wheezing. | | | | | | + + + +---------+------+------+-------+ | roflumilast | Take 1 tablet by | 30 | 2 | 11/2 | | Activ | | (DALIRESP) 500 MCG | mouth daily. | tablet | | 0/20 | | e | | tabletIndications: | | | | 15 | | | | Chronic obstructive | | | | | | | | pulmonary disease, | | | | | | | | unspecified COPD | | | | | | | | type ([facility]) | | | | | | | + + + +---------+------+------+-------+ | | Take 3 mLs by | 360 mL | 3 | 03/2 | | Activ | | ipratropium-albutero | nebulization every 6 | | | 9/20 | | e | | l (DUO-NEB) 0.5-2.5 | (six) hours. | | | 16 | | | | mg/3mLIndications: | | | | | | | | Chronic obstructive | | | | | | | | pulmonary disease, | | | | | | | | unspecified COPD | | | | | | | | type ([facility]) | | | | | | | + + + +---------+------+------+-------+ | metFORMIN | Take 500 mg by mouth | | | 09/0 | | Activ | | (GLUCOPHAGE) 500 MG | 2 (two) times daily | | | 8/20 | | e | | tablet | with meals. | | | 16 | | | + + + +---------+------+------+-------+ | oxybutynin | Take 5 mg by mouth | | | 07/2 | | Activ | | (DITROPAN) 5 MG | daily. | | | 09/12 | | e | | tablet | | | | 16 | | | + + + +---------+------+------+-------+ | hydrOXYzine | Take 25 mg by mouth | | | 09/2 | | Activ | | (ATARAX) 25 MG | every 6 (six) hours | | | 03/15 | | e | | tablet | as needed. | | | 16 | | | + + + +---------+------+------+-------+ | predniSONE | Take 1 tablet by | 60 | 0 | 10/2 | | Activ | | (DELTASONE) 10 MG | mouth daily. 1 | tablet | | 03/15 | | e | | tablet | TABLETS DAILY | | | 17 | | | + + + +---------+------+------+-------+ | albuterol | Inhale 2 puffs into | 1 | 6 | 03/0 | 03/0 | Activ | | (VENTOLIN HFA) 108 | the lungs every 4 | Inhaler | | 8/20 | 7/20 | e | | (90 Base) MCG/ACT | (four) hours as | | | 19 | 20 | | | inhalerIndications: | needed for Wheezing | | | | | | | Chronic obstructive | or Shortness of | | | | | | | pulmonary disease, | Breath. | | | | | | | unspecified COPD | | | | | | | | type (HCC) | | | | | | | + + + +---------+------+------+-------+ | | Inhale 2 puffs into | 3 | 12 | 04/1 | 04/1 | Activ | | fluticasone-salmeter | the lungs 2 (two) | Inhaler | | 2/20 | 1/20 | e | | ol (ADVAIR HFA) | times daily. | | | 19 | 20 | | | 230-21 MCG/ACT | | | | | | | | inhaler | | | | | | | + + + +---------+------+------+-------+ Active Problems + + + | Problem | Noted Date | + + + | Moderate persistent asthma without complication | 05/23/2015 | + + + | Lung nodule | 11/21/2014 | + + + | Tachycardia | | + + + | Palpitations | | + + + | Tachyarrhythmia | | + + + | Hypothyroidism | | + + + | Posttraumatic stress disorder | | + + + | Anxiety disorder | | + + + | Bipolar disorder | | + + + | Fibromyalgia | | + + + | Insomnia | | + + + | Sleep apnea | | + + + | COPD (chronic obstructive pulmonary disease) | | + + + | Multiple personality disorder (HCC) | | + + + | GERD (gastroesophageal reflux disease) | | + + + | Diverticulosis | | + + + | Hypoxemia | | + + + Immunizations + + + + | Name | Dates Previously Given | Next Due | + + + + | INFLUENZA PF, | 11/19/2016 | | | QUADRIVALENT | | | | (PED/ADOL/ADULT) | | | + + + + | Influenza, PF | 11/16/2013, 11/27/2012, 11/21/2012, | | | Recombinant, | 12/13/2011 | | | Trivalent (Flublok) | | | + + + + | Influenza, Trivalent | 12/10/2014 | | | W/Preservative | | | + + + + | Pneumococcal | 11/24/2015 | | | Conjugate 13-valent | | | + + + + | Pneumococcal | 02/24/2011 | | | Polysaccharide | | | | 23-valent | | | + + + + | Tdap | 07/18/2013, 11/14/2011, 01/22/2008 | | + + + + Family History + + +------+ + | Medical History | Relation | Name | Comments | + + +------+ + | Asthma | Father | | | + + +------+ + | Diabetes type II | Maternal | | | | | Grandfath | | | | | er | | | + + +------+ + | Cancer | Maternal | | | | | Grandmoth | | | | | er | | | + + +------+ + | Asthma | Sister | | | + + +------+ + + +------+--------+ + | Relation | Name | Status | Comments | + +------+--------+ + | Father | | Alive | | + +------+--------+ + | Maternal Grandfather | | | | + +------+--------+ + | Maternal Grandmother | | | | + +------+--------+ + | Mother | | Alive | | + +------+--------+ + | Sister | | Alive | | + +------+--------+ + Social History + +-------+ +--------+ + | Tobacco Use | Types | Packs/Day | Years | Date | | | | | Used | | + +-------+ +--------+ + | Former Smoker | | 0.5 | | Quit: 06/24/2014 | + +-------+ +--------+ + + +---+---+---+ | Smokeless Tobacco: | | | | | Never Used | | | | + +---+---+---+ + + +---------+ + | Alcohol Use | Drinks/We | oz/Week | Comments | | | ek | | | + + +---------+ + | No | | | | + + +---------+ + + + + | Sex Assigned at | Date Recorded | | | | + + + | Not on file | | + + + Last Filed Vital Signs + + + + | Vital Sign | Reading | Time Taken | + + + + | Blood Pressure | 93/52 | 11/05/2017 2:26 PM PDT | + + + + | Pulse | 87 | 11/05/2017 2:26 PM PDT | + + + + | Temperature | 36.5 C (97.7 F) | 11/05/2017 2:26 PM PDT | + + + + | Respiratory Rate | 18 | 05/13/2016 9:03 AM PDT | + + + + | Oxygen Saturation | 96% | 11/05/2017 2:26 PM PDT | + + + + | Inhaled Oxygen | - | - | | Concentration | | | + + + + | Weight | 73.7 kg (162 lb 6.4 | 11/05/2017 2:26 PM PDT | | | oz) | | + + + + | Height | 157.5 cm (5' 2") | 11/05/2017 2:26 PM PDT | + + + + | Body Mass Index | 29.7 | 11/05/2017 2:26 PM PDT | + + + + Plan of Treatment + + + + + | Health Maintenance | Due Date | Last Done | Comments | + + + + + | Cervical Cancer | | | | | Screening (Pap) | 7 | | | + + + + + | Breast Cancer | | | | | Screening | 7 | | | | (Mammogram) | | | | + + + + + | Colon Cancer | | | | | Screening | 7 | | | | (Colonoscopy) | | | | + + + + + | Vaccine: Zoster (1 | | | | | of 2) | 7 | | | + + + + + | Vaccine: Influenza | | 11/19/2016, 12/10/2014, | | | (#1) | 9 | 11/16/2013, Additional history | | | | | exists | | + + + + + | Vaccine: | | 07/18/2013, 11/14/2011, | | | Dtap/Tdap/Td (4 - | 4 | 01/22/2008 | | | Td) | | | | + + + + + | Vaccine: | Completed | 02/24/2011 | | | Pneumococcal 19-64 | | | | | (PPSV23 only) Medium | | | | | Risk | | | | + + + + + Results Not on filefrom Last 3 Months Insurance + +--------+ +------+-------+ + | Payer | Benefi | Subscriber | Type | Phone | Address | | | t Plan | ID | | | | | | / | | | | | | | Group | | | | | + +--------+ +------+-------+ + | MEDICARE | MEDICA | [id number] | | | [address] | | | RE | | | | [place] [address] | | | IP-OP | | | | | + +--------+ +------+-------+ + | MEDICAID | MEDICA | [id number] | | | [address] | | | ID | | | | [place] | | | INPT & | | | | [address] | | | OUPT | | | | | + +--------+ +------+-------+ + + +--------+ +--------+ + + | Guarantor Name | Accoun | Relation to | Date | Phone | Billing Address | | | t Type | Patient | of | | | | | | | | | | + +--------+ +--------+ + + | JADYN SCHMITZ W | Person | Self [birth year] Home: | [address] | | | al/Fam | | [phone] | [phone] [place] | | | rigoberto | | | [phone] | [address] | + +--------+ +--------+ + +
--- OUTSIDE RECORDS SUMMARY | ~2019-01-15 | XMS | Encounter Summary ---
Demographics + + + | Address | [address] | | | [place] [address] | + + + | Home Phone [...] Team Providers + +------+ + | Care Aging Room Operator Name | Role | Phone | [...] | RN | | | | | [place], | | | | | | [place] [address] | | | | | | [phone] | | | +--------+ + + + [...] | | | | [place] | | | | | | [address] | | | | | | | | +--------+---------+ + + + | 11/24/ | Office | Cardiology | [place], | | | 2020 | Visit | | SINDHU Erickson [address] | | | | | | [place], | | | | | | [place] [address] | | | | | | [phone] | | | | | | | | +--------+---------+ + + + documented as of this encounter Visit Diagnoses + + | Diagnosis | + + | GARRY (obstructive sleep apnea) - Primary Obstructive sleep apnea (adult) (pediatric) | + + documented in this encounter"
--- OUTSIDE RECORDS SUMMARY | ~2019-01-15 | XMS | Encounter Summary ---
Demographics + + + | Address | [address] | | | [place] [address] | + + + | Home Phone [...] Providers + +------+ + | Care Solid State Tester Name | Role | Phone | [...] (Primary Dx); | | | | [place] [address] | | Central sleep apnea; | | | | [phone] | | Insomnia | +--------+---------+ + + [...] [place] | | | | | | [address] | | | | | | | | +--------+---------+ + + + | 11/24/ | Office | Cardiology | [place], | | | 2019 | Visit | | SINDHU Erickson [address] | | | | | | [place], | | | | | | [place] [address] | | | | | | [phone] | | | | | | | [...]
--- OUTSIDE RECORDS SUMMARY | ~2019-01-15 | XMS | Encounter Summary ---
Demographics + + + | Address | [address] | | | [place] [address] | + + + | Home Phone [...] Providers + +------+ + | Care Nurse Assistant Name | Role | Phone | [...] | | | | | pulmonary | [address] | [address] | | | | | disease, | [place], | [place] | | | | | unspecified | [place] [address] | [place], [place] | | | | | COPD type | Phone: | [address] | | | | | (HCC) | [phone] | Phone: | | | | | Pulmonary | Fax: | [phone] | | | | | emphysema, | [phone] | Fax: | | | | | unspecified | | [phone] | | | | | emphysema | | | | | | | type ([facility]) | | | +--------+ + + + + + Encounter Details +--------+---------+ + + + | Date | Type | Department | Care Team | Description | +--------+---------+ + + + | 05/28/ | Office | [facility] | Jared Mcdonough, | Chronic obstructive | | 2017 | Visit | MED CTR CARDIAC | [address] | pulmonary disease, | | | | REHABILITATION [address] | [place], | unspecified COPD | | | | [address] [place] | [place] [address] | type (HCC) (Primary | | | | [place] [address] | [phone] | Dx); Pulmonary | | | | [phone] | | emphysema, | | | | [...] Desean Chris - 05/28/2016 3:42 PM PDT [facility] CARDIAC REHABILITATION [address] [place] [address] Cardiac Rehab Date: 05/28/2016 Patient Information Patient [...] | | | | [place] | | | | | | [address] | | | | | | | | +--------+---------+ + + + | 11/24/ | Office | Cardiology | [place], | | | 2019 | Visit | | SINDHU Erickson [address] | | | | | | [place], | | | | | | [place] [address] | | | | | | [phone] | | | | | | | | +--------+---------+ + + + documented as of this encounter Visit Diagnoses + + | Diagnosis | + + | Chronic obstructive pulmonary disease, unspecified COPD type (HCC) - Primary | + + | Pulmonary emphysema, unspecified emphysema type (HCC) | + + documented in this encounter"
--- OUTSIDE RECORDS SUMMARY | ~2019-01-15 | XMS | Encounter Summary ---
Demographics + + + | Address | [address] | | | [place] [address] | + + + | Home Phone [...] Team Providers + +------+ + | Care Allied Health Professional Name | Role | Phone | [...] + + | 02/09/ | Office | [facility] | Kevin Sandoval, | COPD exacerbation | | 2013 | Visit | PULMONARY [address] | [address] | ([facility]) (Primary Dx); | | | | [place], | [place], [place] | COPD (chronic | | | | [place] [address] | [address] | obstructive | | | | [phone] | | pulmonary disease) | | | | | | ([facility]); Central sleep | | | | | [...] nd it. Keep your chin up. 3. Faison 1 puff into the spacer by pressing [...] your mouth.) 3. Keep your chin up. Faison 1 puff by pressing down on the [...] it in a dry p lace. The [employer]. [address] [place] [id number]. All righ ts reserved. 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 The patient has required [...] have not [facility]. The patient does cough chronically, and does [...] disease) COPD (chronic obstructive pulmonary disease) ([facility]) 2011 post BD FEV1 2.34, 85% 9/20/12 [...] of Need: Lifetime. Please send order t [facility]. This is not a [...] | | | | [place] | | | | | | [address] | | | | | | | | +--------+---------+ + + + | 11/24/ | Office | Cardiology | [place], | | | 2020 | Visit | | SINDHU Erickson [address] | | | | | | [place], | | | | | | [place] [address] | | | | | | [phone] | | | | | | | [...]
--- OUTSIDE RECORDS SUMMARY | ~2019-01-15 | XMS | Encounter Summary ---
Demographics + + + | Address | [address] | | | [place] [address] | + + + | Home Phone [...] Team Providers + +------+ + | Care Plaster And Stucco Worker Name | Role | Phone | + +------+ + | Juan Cherry DO | PCP | | + +------+ + Encounter Details +--------+ + + + + | Date | Type | Department | Care Team | Description | +--------+ + + + + | 12/17/ | Hospital | [facility] | Shashi Segovia | Therapeutic drug | | 2013 | Encounter | MED CTR LABORATORY | MD Miryam Need updated | monitoring | | | | [address] [place] | address | | | | | [place] | | | | | | [address] | | | | | | [phone] | | | +--------+ + + + [...] [place] | | | | | | [address] | | | | | | | | +--------+---------+ + + + | 11/24/ | Office | Cardiology | [place], | | | 2019 | Visit | | SINDHU Erickson [address] | | | | | | [place], | | | | | | [place] [address] | | | | | | [phone] | | | | | | | [...] mL/min/1.73m2 | [facility] | | | [facility] | | | [facility] | [facility] - | | | | | | LABORATORY | | + +-------+ + + + + + | Specimen | + + | Blood | + + + + + + + | Performing | Address | City/State/[facility] | Phone Number | | Organization | | | | + + + + + | [facility] | [address] | [place] | [phone] | | [facility] | | [address] | | | - LABORATORY | | | | + + + + + | [facility] | [address] | [place] | | | [facility] | | [address] | | | - LABORATORY | | [...] + | [facility] | [address] | [place], [place] | [phone] | | [facility] | | [address] | | | - LABORATORY | | | | + + + + + | [facility] | [address] | [place], [place] | | | [facility] | | [address] | | | - LABORATORY | | | | + + + + + documented in this encounter Visit Diagnoses + + | Diagnosis | + + | Therapeutic drug monitoring Encounter for therapeutic drug monitoring | + + documented in this encounter"
--- OUTSIDE RECORDS SUMMARY | ~2019-01-15 | XMS | Encounter Summary ---
Demographics + + + | Address | [address] | | | [place] [address] | + + + | Home Phone [...] + +------+ + | Care Golf Club Head Former Name | Role | Phone | [...] MED CTR CARDIAC | MD [address] | unspecified | | | | REHABILITATION [address] | [place], | emphysema type (HCC) | | | | [place] | [place] [address] | (Primary Dx); | | | | [place] [address] | [phone] | Chronic obstructive | | | | [phone] | | pulmonary disease, | | | [...] | | | | | | [place] [address] | | | | | | [phone] | | | | | | | [...]
--- OUTSIDE RECORDS SUMMARY | ~2019-01-15 | XMS | Encounter Summary ---
Demographics + + + | Address | [address] | | | [place] [address] | + + + | Home Phone [...] Team Providers + +------+ + | Care Travertine Installer Name | Role | Phone | [...] + | 09/04/ | Off-Site | [facility] | [place], | Paroxysmal atrial | | 2016 | Visit | CARDIOLOGY [address] | SINDHU Erickson [address] | tachycardia (HCC) | | | | [place], | [place], | (Primary Dx); Chest | | | | [place] [address] | [place] [address] | pain, unspecified | | | | [phone] | [phone] | type | | | | | [...] rigoberto Respiratory Therapy Supplies [facility] Please provide patient with necessary CPAP supplies ( she did not specify, okay to send order as appropriate) Diagnosis Code(s)327.23 . Length of Need 99 months. Please send order to [facility]. 1 each 0 Respiratory Therapy Supplies [facility] Change CPAP back to 11-14 cm H2O. All necessary suppl ies. No oxygen bleed in. Diagnosis Code(s)327.23. Length of Need: Lifetime. Please send orde r to [facility]. This is not a [...] primarily from [facility]: LIPID No results found for: [...] She was seen at the ED of [facility] 3 weeks ago and again [...] She is in a class II of [place] [employer] functional class. There is n [...] and ventricular function don e at the [facility]. LVEF 78%. C. Holter Monitor [...] this chart may have been created with [employer] voice recognition software. Occasi onal wrong-word or [...] | | | | | | [place] [address] | | | | | | [phone] | | | | | | | [...]
--- OUTSIDE RECORDS SUMMARY | ~2019-01-15 | XMS | Encounter Summary ---
Demographics + + + | Address | [address] | | | [place] [address] | + + + | Home Phone [...] Team Providers + +------+ + | Care Research Geologist Name | Role | Phone | + [...] + | 10/05/ | Telephone | [facility] | Sharonda Delmycaitie, | Referral | | 2013 | | CARDIOLOGY [address] | [address] [place] | | | | | [place], | [place], | | | | | [place] [address] | [place] [address] | | | | | [phone] | [phone] | | | | | | | [...] | | | | | | [place] [address] | | | | | | [phone] | | | | | | | | +--------+---------+ + + + documented as of this encounter Visit Diagnoses Not on filedocumented in this encounter"
--- OUTSIDE RECORDS SUMMARY | ~2019-01-15 | XMS | Encounter Summary ---
Demographics + + + | Address | [address] | | | [place] [address] | + + + | Home Phone [...] Team Providers + +------+ + | Care Billposter Name | Role | Phone | + [...] + + | 09/02/ | Hospital | [facility] | [place], | Shortness of breath; | | 2017 | Encounter | MED CTR NUCLEAR | SINDHU Erickson [address] | Racing heart beat; | | | | MEDICINE [address] | [place], | Palpitations | | | | [place], | [place] [address] | | | | | [place] [address] | [phone] | | | | | [phone] | | | +--------+ + + + [...] provide | 1 each | 0 | // | | | Therapy Supplies | patient [...] | | | | | order to [facility]. | | | | | + [...] | | send order to [facility] | | | | | | | [facility]. | | | | | | | [...] | | | | | | [place] [address] | | | | | | [phone] | | | | | | | [...]
--- OUTSIDE RECORDS SUMMARY | ~2019-01-15 | XMS | Encounter Summary ---
Demographics + + + | Address | [address] | | | [place] [address] | + + + | Home Phone [...] Providers + +------+ + | Care Network Planner Name | Role | Phone | [...] + + | 01/20/ | Emergency | [facility] | Nestor Martinez, | COPD exacerbation | | 2013 - | | MED CTR EMERGENCY | MD [address] | ([facility]) (Primary Dx) | | | | [place] [address] | [place], [place] | | | 01/21/ | | [place], [place] | [address] | | | 2013 | | [address] | | | | | | [phone] | | | +--------+ + + + [...] sent through Care Everywhere.ED COPD FLARE ( CHILEAN)documented in this encounter Medications at Time of [...] | | | | order to [facility]. | | | | | + [...] | | | | | | | [facility]. | | | | | | | [...] [place] | | | | | | [address] | | | | | | | | +--------+---------+ + + + | 11/24/ | Office | Cardiology | [place], | | | 2019 | Visit | | SINDHU Erickson [address] | | | | | | [place], | | | | | | [place] [address] | | | | | | [phone] | | | | | | | [...] + | MISCELLANEOUS LAB | | | [phone] | + +---------+ + + | MISCELANIOUS LAB | | | [phone] | + +---------+ + + documented in [...]
--- OUTSIDE RECORDS SUMMARY | ~2019-01-15 | XMS | Encounter Summary ---
Demographics + + + | Address | [address] | | | [place] [address] | + + + | Home Phone [...] Team Providers + +------+ + | Care President And Chief Commercial Officer Name | Role | Phone | + +------+ + | Juan Cherry DO | PCP | | + +------+ + Encounter Details +--------+ + + + + | Date | Type | Department | Care Team | Description | +--------+ + + + + | 01/07/ | Hospital | [facility] | Lencho Astorga, | Contusion of foot | | 2012 | Encounter | MED CTR XRAY [address] | MD [address] | including toes | | | | [place] | [place], [place] | | | | | [place] [address] | [address] | | | | | [phone] | | | +--------+ + + + [...] | | | | | | [facility]. | | | | | [...] [place] | | | | | | [address] | | | | | | | | +--------+---------+ + + + | 11/24/ | Office | Cardiology | [place], | | | 2019 | Visit | | SINDHU Erickson [address] | | | | | | [place], | | | | | | [place] [address] | | | | | | [phone] | | | | | | | [...] Performed At | + + + | [facility] | [place] | | Department [address] [facility] | [place] | | [ rep [phone]] [ rep [facility] | | st rust] Signed | - IMAGING | | | | | Patient Name: JADYN SCHMITZ | | | Physician: FRANCA : 1965 Age: 47 Sex: F Unit | | | #: [id number] Exam Date: 01/07/13 Location: | | | [facility] Report #: [id number] Page: | | | %(RAD)RES..mtdd.print.filter("pg") of %(RAD) | | | RES..mtdd.print.filter("tpg") | | | | | | Accession Number: [id number] | | | LEFT FOOT, 01/07/2013 CLINICAL [...] Transcribed | | | Date/Time: 01/07/2013 15:01 Traffic Operations Engineer: | | | <<Signature on File>> | | | Kobe | | | MD Tor01/07/13 1705 <Electronically signed by Kobe Lentz MD> | | | Kobe Lentz MD 01/07/13 1430 Traffic Operations Engineer: [employer] | | | Jryzzidywvkbv35/14/13 1501 Lencho Astorga MD | | + + + + + + + + | Performing | Address | City/State/Zipcode | Phone Number | | Organization | | | | + + + + + | [facility] | [address] | [place] | [phone] | | [facility] | | [address] | | | - IMAGING | | | | + + + + + documented in this encounter Visit Diagnoses + + | Diagnosis | + + | Contusion of foot including toes Contusion of foot | + + documented in this encounter
--- OUTSIDE RECORDS SUMMARY | ~2019-01-15 | XMS | Encounter Summary ---
Demographics + + + | Address | [address] | | | [place] [address] | + + + | Home Phone [...] Team Providers + +------+ + | Care Pulmonologist Intensivist Name | Role | Phone | + +------+ + PCP | Unavailable | + +------+ + Encounter Details +--------+ + + + + | Date | Type | Department | Care Team | Description | +--------+ + + + + | 11/08/ | Hospital | [facility] | Ozzy Delcid, | | | 2009 - | Encounter | MED CTR OP REHAB | [address] | | | | | [address] [place] | [place] | | | 11/23/ | | [place] [address] | [address] | | | 2009 | | [phone] | | | +--------+ + + + [...] [place] | | | | | | [address] | | | | | | | | +--------+---------+ + + + | 11/24/ | Office | Cardiology | [place], | | | 2019 | Visit | | SINDHU Erickson [address] | | | | | | [place] | | | | | | [place] [address] | | | | | | [phone] | | | | | | | | +--------+---------+ + + + documented as of this encounter Visit Diagnoses Not on filedocumented in this encounter"
--- OUTSIDE RECORDS SUMMARY | ~2019-01-15 | XMS | Encounter Summary ---
Demographics + + + | Address | [address] | | | [place] [address] | + + + | Home Phone [...] Providers + +------+ + | Care Hotel Or Motel Manager Name | Role | Phone | [...] | apnea (adult) | | | | [place], | | (pediatric) (Primary | | | | [place] [address] | | Dx) | | | | [phone] | | | +--------+ + + + [...] [place] | | | | | | [address] | | | | | | | | +--------+---------+ + + + | 11/24/ | Office | Cardiology | [place], | | | 2019 | Visit | | SINDHU Erickson [address] | | | | | | [place], | | | | | | [place] [address] | | | | | | [phone] | | | | | | | | +--------+---------+ + + + documented as of this encounter Visit Diagnoses + + | Diagnosis | + + | Obstructive sleep apnea (adult) (pediatric) - Primary | + + documented in this encounter"
--- OUTSIDE RECORDS SUMMARY | ~2019-01-15 | XMS | Encounter Summary ---
Demographics + + + | Address | [address] | | | [place] [address] | + + + | Home Phone [...] Team Providers + +------+ + | Care Teletype Mechanic Name | Role | Phone | [...] [address] | | | | | [place], | [place], | | | | | [place] [address] | [place] [address] | | | | | [phone] | [phone] | | | | | | | [...] | | | | | | [place] [address] | | | | | | [phone] | | | | | | | | +--------+---------+ + + + documented as of this encounter Visit Diagnoses Not on filedocumented in this encounter"
--- OUTSIDE RECORDS SUMMARY | ~2019-01-15 | XMS | Encounter Summary ---
Demographics + + + | Address | [address] | | | [place] [address] | + + + | Home Phone [...] Team Providers + +------+ + | Care Juke Box Mechanic Name | Role | Phone | [...] + + | 11/06/ | Clinical | [facility] | Andriy Weber | Interstitial | | 2016 | Support | [address] | MD [address] | cystitis (Primary | | | | [place] | [address] | Dx) | | | | [address] | [place] [address] | | | | | [phone] | [phone] | | | | | | | [...] Action Dose Route Administered By 11/07/2015 Given 16832 Units Subcutaneous Nancy Dalal CMA lidocaine 2% [...] | | | [place], [place] | | | | | | [address] | | | | | | | | +--------+---------+ + + + | 11/24/ | Office | Cardiology | [place], | | | 2019 | Visit | | SINDHU Erickson [address] | | | | | | [place], | | | | | | [place] [address] | | | | | | [phone] | | | | | | | [...] 1.001 - 1.030 | | | | [place], | | | | | | [facility], [...]
--- OUTSIDE RECORDS SUMMARY | ~2019-01-15 | XMS | Encounter Summary ---
Demographics + + + | Address | [address] | | | [place] [address] | + + + | Home Phone [...] Providers + +------+ + | Care Supervisor Ditching Name | Role | Phone | + +------+ + PCP | Unavailable | + +------+ + Encounter Details +--------+ + + + + | Date | Type | Department | Care Team | Description | +--------+ + + + + | 01/29/ | Hospital | [facility] | Ozzy Delcid, | | | 2009 - | Encounter | MED CTR OP REHAB | [address] | | | | | [address] [place] | [place] | | | 02/23/ | | [place] [address] | [address] | | | 2009 | | [phone] | | | +--------+ + + + [...] [place] | | | | | | [address] | | | | | | | | +--------+---------+ + + + | 11/24/ | Office | Cardiology | [place], | | | 2019 | Visit | | SINDHU Erickson [address] | | | | | | [place], | | | | | | [place] [address] | | | | | | [phone] | | | | | | | | +--------+---------+ + + + documented as of this encounter Visit Diagnoses Not on filedocumented in this encounter"
--- OUTSIDE RECORDS SUMMARY | ~2019-01-15 | XMS | Encounter Summary ---
Demographics + + + | Address | [address] | | | [place] [address] | + + + | Home Phone [...] Providers + +------+ + | Care Chief Steward/Stewardess Name | Role | Phone | + +------+ + PCP | Unavailable | + +------+ + Encounter Details +--------+ + + + + | Date | Type | Department | Care Team | Description | +--------+ + + + + | 06/26/ | [facility] | [facility] | | | | 2009 - | Encounter | MED CTR OP REHAB | | | | | | [address] [place] | | | | 07/24/ | | [place] [address] | | | | 2009 | | [phone] | | | +--------+ + + + [...] [place] | | | | | | [address] | | | | | | | | +--------+---------+ + + + | 11/24/ | Office | Cardiology | [place], | | | 2020 | Visit | | SINDHU Erickson [address] | | | | | | [place], | | | | | | [place] [address] | | | | | | [phone] | | | | | | | | +--------+---------+ + + + documented as of this encounter Visit Diagnoses Not on filedocumented in this encounter"
--- OUTSIDE RECORDS SUMMARY | ~2019-01-15 | XMS | Encounter Summary ---
Demographics + + + | Address | [address] | | | [place] [address] | + + + | Home Phone [...] Providers + +------+ + | Care Industrial Hire Sales Assistant Name | Role | Phone | + +------+ + PCP | Unavailable | + +------+ + Encounter Details +--------+ + + + + | Date | Type | Department | Care Team | Description | +--------+ + + + + | 10/18/ | [facility] | [facility] | | | | 2008 - | Encounter | MED CTR OP REHAB | | | | | | [address] [place] | | | | 10/24/ | | [place] [address] | | | | 2008 | | [phone] | | | +--------+ + + + [...] [place] | | | | | | [address] | | | | | | | | +--------+---------+ + + + | 11/24/ | Office | Cardiology | [place], | | | 2020 | Visit | | SINDHU Erickson [address] | | | | | | [place], | | | | | | [place] [address] | | | | | | [phone] | | | | | | | | +--------+---------+ + + + documented as of this encounter Visit Diagnoses Not on filedocumented in this encounter"
--- OUTSIDE RECORDS SUMMARY | ~2019-01-15 | XMS | Encounter Summary ---
Demographics + + + | Address | [address] | | | [place] [address] | + + + | Home Phone [...] Providers + +------+ + | Care Drier Operator Helper Name | Role | Phone [...] [address] | | | | | [place], | [place] | | | | | [place] [address] | [address] | | | | | [phone] | | | +--------+--------+ + + + [...] [place] | | | | | | [address] | | | | | | | | +--------+---------+ + + + | 11/24/ | Office | Cardiology | [place], | | | 2019 | Visit | | SINDHU Erickson [address] | | | | | | [place] | | | | | | [place] [address] | | | | | | [phone] | | | | | | | | +--------+---------+ + + + documented as of this encounter Visit Diagnoses Not on filedocumented in this encounter"
--- OUTSIDE RECORDS SUMMARY | ~2019-01-15 | XMS | Encounter Summary ---
Demographics + + + | Address | [address] | | | [place] [address] | + + + | Home Phone [...] Providers + +------+ + | Care Area Counselor Name | Role | Phone | + +------+ + | Juan Cherry DO | PCP | | + +------+ + Encounter Details +--------+ + + + + | Date | Type | Department | Care Team | Description | +--------+ + + + + | 03/18/ | Abstract | [facility] | [place], | | | 2016 | | CARDIOLOGY [address] | [place]KE[place] EricksonP [address] | | | | | [place], | [place], | | | | | [place] [address] | [place] [address] | | | | | [phone] | | | | | | | [...] [place] | | | | | | [address] | | | | | | | | +--------+---------+ + + + | 11/24/ | Office | Cardiology | [place], | | | 2019 | Visit | | SINDHU Erickson [address] | | | | | | [place], | | | | | | [place] [address] | | | | | | [phone] | | | | | | | | +--------+---------+ + + + documented as of this encounter Procedures + +--------+ + + + | Procedure Name | Priori | Date/Time | Associated Diagnosis | Comments | | | ty | | | | + +--------+ + + + | EXTERNAL LAB: | Routin | 11/01/2015 | | Results for this | | TRIGLYCERIDES | e | 12:06 PM | | procedure are in the | | | | PDT | | results section. | + +--------+ + + + | EXTERNAL LAB: | Routin | 11/01/2015 | | Results for this | | CHOLESTEROL, HDL | e | 12:06 PM | | procedure are in the | | | | PDT | | results section. | + +--------+ + + + | EXTERNAL LAB: | Routin | 11/01/2015 | | Results for this | | CHOLESTEROL, TOTAL | e | 12:06 PM | | procedure are in the | | | | PDT | | results section. | + +--------+ + + + | EXTERNAL LAB: | Routin | 11/01/2015 | | Results for this | | CHOLESTEROL, LDL | e | 12:06 PM | | procedure are in the | | | | PDT | | results section. | + +--------+ + + + | LIPID PANEL | Routin | 11/01/2015 | | Results for this | | | e | 10:21 AM | | procedure are in the | | | | PDT | | results section. | + +--------+ + + + documented in this encounter Results External Lab: Triglycerides (11/01/2015 12:06 PM PDT) + +---------+ + + + | Component | Value | Ref Range | Performed | Pathologist | | | | | At | Signature | + +---------+ + + + | Triglycerid | 172 (A) | 35 - 160 | EXTERNAL [...] +---------+ + + External Lab: Cholesterol, HDL (11/01/2015 12:06 PM PDT) + +-------+ + + + | Component | Value | Ref Range | Performed | Pathologist | | | | | At | Signature | + +-------+ + + + | HDL | 51 | 40 - 85 mg/dl | EXTERNAL [...] +---------+ + + External Lab: Cholesterol, Total (11/01/2015 12:06 PM PDT) + +---------+ + + + | Component | Value | Ref Range | Performed | Pathologist | | | | | At | Signature | + +---------+ + + + | Cholesterol | 228 (A) | 120 - 200 mg/dl | EXTERNAL [...] +---------+ + + External Lab: Cholesterol, LDL (11/01/2015 12:06 PM PDT) + +---------+ + + + | Component | Value | Ref Range | Performed | Pathologist | | | | | At | Signature | + +---------+ + + + | LDL | 143 (A) | 0 - 99 | EXTERNAL | [...] | | | + +---------+ + + Lipid Panel (11/01/2015 10:21 AM PDT) + +-------+ + + + | Component | Value | Ref Range | Performed | Pathologist | | | | | At | Signature | + +-------+ + + + | Chol/HDL | 5.0 | 0.0 - 5.0 Ratio | | | | Ratio | | | | | + +-------+ + + + + + | Specimen | + + | Blood specimen | | (specimen) | + + documented in this encounter Visit Diagnoses Not on filedocumented in this encounter"
--- OUTSIDE RECORDS SUMMARY | ~2019-01-15 | XMS | Encounter Summary ---
Demographics + + + | Address | [address] | | | [place] [address] | + + + | Home Phone [...] Providers + +------+ + | Care Solar Manager Name | Role | Phone | [...] + + | 06/19/ | Emergency | [facility] | Nestor Martinez, | COPD with acute | | 2013 - | | MED CTR EMERGENCY | [address] | exacerbation (HCC) | | | | CENTER [address] | [place], [place] | (Primary Dx) | | 06/20/ | | [place] | [address] | | | 2013 | | [address] | | | | | | [phone] | Ozzie Hayes | | | | | | MD Ran [address] | | | | | | [address] [facility] | | | | | | [place] [address] | | | | | | [phone] | | | | | | | [...] | | | | | order to [facility]. | | | | | [...] [place] | | | | | | [address] | | | | | | | | +--------+---------+ + + + | 11/24/ | Office | Cardiology | [place], | | | 2019 | Visit | | SINDHU Erickson [address] | | | | | | [place], | | | | | | [place] [address] | | | | | | [phone] | | | | | | | [...]
--- OUTSIDE RECORDS SUMMARY | ~2019-01-15 | XMS | Encounter Summary ---
Demographics + + + | Address | [address] | | | [place] [address] | + + + | Home Phone [...] Team Providers + +------+ + | Care Alliance Director Name | Role | Phone | [...] + | 09/16/ | Telephone | [facility] | Kevin Sandoval, | Appointment | | 2014 | | PULMONARY [address] | MD [address] | (CANCELLING | | | | [place], | [place] | APPOINTMENT) | | | | [place] [address] | [address] | | | | | [phone] | | | +--------+ + + + [...] | | | | | | [place] [address] | | | | | | [phone] | | | | | | | | +--------+---------+ + + + documented as of this encounter Visit Diagnoses Not on filedocumented in this encounter"
--- OUTSIDE RECORDS SUMMARY | ~2019-01-15 | XMS | Encounter Summary ---
Demographics + + + | Address | [address] | | | [place] [address] | + + + | Home Phone [...] Providers + +------+ + | Care Aircraft Worker Name | Role | Phone | [...] | | Rehabilitatio | copd | MD aJred | | | | | n | Procedures | [address] | Rehabilitatio | | | | | [facility] | [address] | n [address] | | | | | EXERCISE | [place], | [place] | | | | | | [place] [address] | [place], [place] | | | | | | Phone: | [address] | | | | | | [phone] | Phone: | | | | | | Fax: | [phone] | | | | | | [phone] | Fax: | | | | | | | [phone] | +--------+--------+ + + + + Encounter Details +--------+---------+ + + + | Date | Type | Department | Care Team | Description | +--------+---------+ + + + | 08/01/ | Office | [facility] | Jared Mcdonough, | Chronic obstructive | | 2017 | Visit | MED CTR CARDIAC | MD [address] | pulmonary disease, | | | | REHABILITATION [address] [place], | unspecified COPD | | | | [address] [place] | [place] [address] | type (HCC) (Primary | | | | [place] [address] | [phone] | Dx); Mild persistent | | | | [phone] | | asthma without | | | [...] [place] | | | | | | [address] | | | | | | | | +--------+---------+ + + + | 11/24/ | Office | Cardiology | [place], | | | 2019 | Visit | | SINDHU Erickson [address] | | | | | | [place], | | | | | | [place] [address] | | | | | | [phone] | | | | | | | | +--------+---------+ + + + documented as of this encounter Visit Diagnoses + + | Diagnosis | + + | Chronic obstructive pulmonary disease, unspecified COPD type (HCC) - Primary | + + | Mild persistent asthma without complication Unspecified asthma | + + documented in this encounter"
--- OUTSIDE RECORDS SUMMARY | ~2019-01-15 | XMS | Encounter Summary ---
Demographics + + + | Address | [address] | | | [place] [address] | + + + | Home Phone [...] Providers + +------+ + | Care Senior Product Analyst Name | Role | Phone | [...] + + | 10/16/ | Hospital | [facility] | [place], | Paroxysmal atrial | | 2017 | Encounter | MED CTR NUCLEAR | SINDHU Erickson [address] | tachycardia (HCC); | | | | MEDICINE [address] | [place], | Palpitations | | | | [place], | [place] [address] | | | | | [place] [address] | [phone] | | | | | [phone] | | | +--------+ + + + [...] | | | | | | [facility]. | | | | | [...] | | ([facility]) | | | | | | [...] | | ([facility]) | | | | | | [...] [place] | | | | | | [id number] | | | | | | | | +--------+---------+ + + + | 11/24/ | Office | Cardiology | [place], | | | 2019 | Visit | | SINDHU Erickson [address] | | | | | | [place], | | | | | | [place] [address] | | | | | | [phone] | | | | | | | [...] [place] | | | DO CAMILLE Cherry SUPERVISOR FRAME SAMPLE AND PATTERN: Jared Mcdonough MD | | | 48-HOUR [...] | | Signed by: Jared Mcdonough MD [facility] 10/18/2016, | | | 10:51 | [...]
--- OUTSIDE RECORDS SUMMARY | ~2019-01-15 | XMS | Encounter Summary ---
Demographics + + + | Address | [address] | | | [place] [address] | + + + | Home Phone [...] Providers + +------+ + | Care Air Plant Engineer Name | Role | Phone | [...] + | 12/08/ | Telephone | [facility] | Jared Mcdonough, | Appointment | | 2014 | | CARDIOLOGY [address] | [address] | | | | | [place], | [place], | | | | | [place] [address] | [place] [address] | | | | | [phone] | [phone] | | | | | | | [...] [place] | | | | | | [address] | | | | | | | | +--------+---------+ + + + | 11/24/ | Office | Cardiology | [place], | | | 2019 | Visit | | SINDHU Erickson [address] | | | | | | [place], | | | | | | [place] [address] | | | | | | [phone] | | | | | | | | +--------+---------+ + + + documented as of this encounter Visit Diagnoses Not on filedocumented in this encounter"
--- OUTSIDE RECORDS SUMMARY | ~2019-01-15 | XMS | Encounter Summary ---
Demographics + + + | Address | [address] | | | [place] [address] | + + + | Home Phone [...] Providers + +------+ + | Care Farm Equipment Engineer Name | Role | Phone | [...] + + | 07/18/ | Emergency | [facility] | Ozzy Aponte | Laceration of left | | 2013 | | MED CTR EMERGENCY | Ozzie Kebede MD | upper arm without | | | | CENTER [address] | [address] | foreign body, | | | | [place] | [place] | initial encounter | | | | [address] | [address] | (Primary Dx) | | | | [phone] | | | +--------+ + + + [...] | | | | | order to [facility]. | | | | | [...] [place] | | | | | | [address] | | | | | | | | +--------+---------+ + + + | 11/24/ | Office | Cardiology | [place], | | | 2019 | Visit | | SINDHU Erickson [address] | | | | | | [place], | | | | | | [place] [address] | | | | | | [phone] | | | | | | | [...] -------- | | | ---- 07/18/2013 12:04 [place] | | | [facility] Emergency cut on Lft arm; | | | 07/14/2013 00:15 [facility] | | | Emergency Shortness of Breath; | | | | | | Chronic obstructive asthma with (acute) exacerbation; | | | 06/19/2013 21:06 [facility] | | | Emergency Obstructive chronic bronchitis with (acute) | | | exacerbation; | | | Shortness of | | | Breath; | | | diff breathing; | | | 06/19/2013 11:03 [facility] | | | Emergency COPD exasperation; 05/23/2013 19:52 [place] | | | [facility] Emergency Obstructive chronic | | | bronchitis with (acute) exacerbation; | | | | | | Obstructive chronic bronchitis with (acute) exacerbation; | | | | | | sob; | | | | | | Shortness of Breath; VISIT COUNT (1 YR.) Visits | | | Medicaid NE Dx Location ------ | | | --------- 11 0 [facility]. | | | [facility] 11 0 Total | | | Note: Visits indicate total known visits. Medicaid [place] Dx are the | | | number of primary diagnoses on the [facility]'s non-emergent dx list. | | | [...] | | + +--------+ +---------+------+ + | jostkel-zjxkngtycz-qxpygphvf | Given | 07/19/19 | 0.5 mLs [...]
--- OUTSIDE RECORDS SUMMARY | ~2019-01-15 | XMS | Encounter Summary ---
Demographics + + + | Address | [address] | | | [place] [address] | + + + | Home Phone [...] Team Providers + +------+ + | Care Cream Buyer Name | Role | Phone | + [...] | | | | | pulmonary | [address] [place] [address] | [address] | | | | | disease, | [place], | [place] | | | | | unspecified | [place] [address] | [place], [place] | | | | | COPD type | Phone: | [phone] | | | | | (HCC) | [phone] | Phone: | | | | | Pulmonary | Fax: | [phone] | | | | | emphysema, | [phone] | Fax: | | | | | unspecified | | [phone] | | | | | emphysema | | | | | | | type ([facility]) | | | +--------+ + + + + + Encounter Details +--------+ + + + + | Date | Type | Department | Care Team | Description | +--------+ + + + + | 04/03/ | Orders Only | [facility] [place] | JamaledgardoJared, | Chronic obstructive | | 2017 | | CARDIOLOGY [address] | [address] [place] | pulmonary disease, | | | | [place], | [place], | unspecified COPD | | | | [place] [address] | [place] [address] | type (HCC) (Primary | | | | [phone] | [phone] | Dx); Pulmonary | | | | [...] [place] | | | | | | [address] | | | | | | | | +--------+---------+ + + + | 11/24/ | Office | Cardiology | [place], | | | 2019 | Visit | | SINDHU Erickson [address] | | | | | | [place], | | | | | | [place] [address] | | | | | | [phone] | | | | | | | [...]
--- OUTSIDE RECORDS SUMMARY | ~2019-01-15 | XMS | Encounter Summary ---
Demographics + + + | Address | [address] | | | [place] [address] | + + + | Home Phone [...] Organization | [facility] | | | and [place] | + [...] Providers + +------+ + | Care Respiratory Technician Name | Role | Phone | + +------+ + | Juan Cherry DO | PCP | | + +------+ + Encounter Details +--------+ + + + + | Date | Type | Department | Care Team | Description | +--------+ + + + + | 01/20/ | Hospital | [facility] | Guru Cárdenas, | | | 2011 | Encounter | MED CTR EMERGENCY | [address] | | | | | CENTER [address] | [facility] [place] | | | | | [place], [place] | [place] [address] | | | | | [address] | [phone] | | | | | [phone] | | | | | | | Ozzy Aponte | | | | | | MD Delio [address] | | | | | | [address] [place] | | | | | | [place] [address] | | | | | | [phone] | | | | | | | [...] [place] | | | | | | [address] | | | | | | | | +--------+---------+ + + + | 11/24/ | Office | Cardiology | [place], | | | 2019 | Visit | | SINDHU Erickson [address] | | | | | | [place] | | | | | | [place] [address] | | | | | | [phone] | | | | | | | [...] Performed At | + + + | [facility] | [facility] | | Department [address] [facility] | [facility] | | [ rep [address]] [ rep [facility] | | [facility]] Signed | - IMAGING | | | | | Patient Name: JADYN SCHMITZ | | | Physician: MARY : 1965 Age: 47 Sex: F Unit | | | #: [id number] Exam Date: 01/21/12 Location: | | | EDU Report #: [id number] Page: | | | %(RAD)RES..mtdd.print.filter("pg") of %(RAD) | | | RES..mtdd.print.filter("tpg") | | | | | | Accession Number: [id number] | | | RIGHT FOOT CLINICAL HISTORY: [...] Transcribed Date/Time: 01/21/2012 09:32 | | | Rn Military: ChrisARELIS <<Signature on File>> | | | | | | Cesar Ren MD01/21/12 1220 <Electronically signed by | | | Cesar Ren MD> Cesar Ren MD 01/21/12 | | | 0943 Rn Military: Neal Abryrrpmcvkey79/27/12 0932 | | | | | + + + + + + + + | Performing | Address | City/State/Zipcode | Phone Number | | Organization | | | | + + + + + | [facility] | [address] | [place] | [phone] | | [facility] | | [address] | | | - IMAGING | | | | + + + + + documented in this encounter Visit Diagnoses Not on filedocumented in this encounter
--- OUTSIDE RECORDS SUMMARY | ~2019-01-15 | XMS | Encounter Summary ---
Demographics + + + | Address | [address] | | | [place] [address] | + + + | Home Phone [...] Providers + +------+ + | Care Control Manager Name | Role | Phone | [...] (Primary Dx); | | | | [address], | address | [place] | | | | [address] [place] | | | | | | [place] [address] | | | | | | [phone] | | | +--------+ + + + [...] [place] | | | | | | [address] | | | | | | | | +--------+---------+ + + + | 11/24/ | Office | Cardiology | [place], | | | 2019 | Visit | | SINDHU Erickson [address] | | | | | | [place], | | | | | | [place] [address] | | | | | | [phone] | | | | | | | [...]
--- OUTSIDE RECORDS SUMMARY | ~2019-01-15 | XMS | Encounter Summary ---
Demographics + + + | Address | [address] | | | [place] [address] | + + + | Home Phone [...] Team Providers + +------+ + | Care Media Analyst Name | Role | Phone | + +------+ + | Juan Cherry DO | PCP | | + +------+ + Encounter Details +--------+ + + + + | Date | Type | Department | Care Team | Description | +--------+ + + + + | 11/12/ | Hospital | [facility] | Andriy Weber | | | 2016 | Encounter | MED CTR XRAY [address] | MD [address] | | | | | [place] | [place] | | | | | [place] [address] | [place] [address] | | | | | [phone] | [phone] | | | | | | | [...] | | | | | | | [facility]. | | | | | [...] | | | | | | ([facility]) | | | | | [...] | 0 | 10/13/19 | | | Fmpnrzmjky-BJIT-Opnx | mouth as needed. | | | 16 | 7 | | -Cod [id number] MG | | | | | | [...] | | | | | | ([facility]) | | | | | [...] [place] | | | | | | [address] | | | | | | | | +--------+---------+ + + + | 11/24/ | Office | Cardiology | [place], | | | 2019 | Visit | | SINDHU Erickson [address] | | | | | | [place], | | | | | | [place] [address] | | | | | | [phone] | | | | | | | [...]
--- OUTSIDE RECORDS SUMMARY | ~2019-01-15 | XMS | Encounter Summary ---
Demographics + + + | Address | [address] | | | [place] [address] | + + + | Home Phone [...] Team Providers + +------+ + | Care Administration Vice President Name | Role | Phone [...] + + | 10/16/ | Office | [facility] | [place], | Tachycardia (Primary | | 2017 | Visit | CARDIOLOGY [address] | SINDHU Erickson [address] | Dx); Paroxysmal | | | | [place], | [place], | atrial tachycardia | | | | [place] [address] | [place] [address] | (HCC) | | | | [phone] | [phone] | | | | | | | [...] this da rigoberto Respiratory Therapy Supplies [facility] Please provide patient with necessary CPAP supplies ( she did not specify, okay to send order as appropriate) Diagnosis Code(s)327.23 . Length of Need 99 months. Please send order to [facility]. 1 each 0 Respiratory Therapy Supplies [facility] Change CPAP back to 11-14 cm H2O. All necessary suppl ies. No oxygen bleed in. Diagnosis Code(s)327.23. Length of Need: Lifetime. Please send orde r to [facility]. This is not a new [...] longer present Confirmed by RAFA WELLS MD ([id number]) on 08/06/2015 9:42:29 AM LAB RESULTS reviewed during visit today primarily from [facility]: LIPID Lab Results Component [...] was seen at the ED of [facility] 3 weeks ago and again [...] v entricular function done at the [facility]. LVEF 78%. C. Holter Monitor [...] this chart may have been created with [employer] voice recognition software. Occasi onal wrong-word or [...] [place] | | | | | | [address] | | | | | | | | +--------+---------+ + + + | 11/24/ | Office | Cardiology | [place], | | | 2019 | Visit | | SINDHU Erickson [address] | | | | | | [place], | | | | | | [place] [address] | | | | | | [phone] | | | | | | | [...] Juan | | | DO CAMILLE Cherry ELEVATOR INSTALLER APPRENTICE: Clay Mcdonough MD | | | 48-HOUR HOLTER [...] | | Signed by: Clay Mcdonough MD [facility] 10/18/2016, | | | 10:51 | | + + + + +---------+ + + | Performing | Address | City/State[facility] | Phone Number | [...] CLAY | | | | | | ([id number]) on 10/16/2016 | | | | | [...]
--- OUTSIDE RECORDS SUMMARY | ~2019-01-15 | XMS | Encounter Summary ---
Demographics + + + | Address | [address] | | | [place] [address] | + + + | Home Phone [...] Providers + +------+ + | Care Stockroom Worker Name | Role | Phone | [...] | | | | [facility] | [address] | [address] | | | | | EXERCISE | [place], | [place] | | | | | | [place] [address] | [place], [place] | | | | | | Phone: | [address] | | | | | | [phone] | Phone: | | | | | | Fax: | [phone] | | | | | | [phone] | Fax: | | | | | | | [phone] | +--------+--------+ + + + + Encounter Details +--------+---------+ + + + | Date | Type | Department | Care Team | Description | +--------+---------+ + + + | 08/01/ | Office | [facility] | Jared Mcdonough, | Chronic obstructive | | 2017 | Visit | MED CTR CARDIAC | MD [address] | pulmonary disease, | | | | [facility] [address] [place], | unspecified COPD | | | | [address] [place] | [place] [address] | type (HCC) (Primary | | | | [place] [address] | [phone] | Dx); Mild persistent | | | | [phone] | | asthma without | | | [...] [place] | | | | | | [address] | | | | | | | | +--------+---------+ + + + | 11/24/ | Office | Cardiology | [place], | | | 2019 | Visit | | SINDHU Erickson [address] | | | | | | [place], | | | | | | [place] [address] | | | | | | [phone] | | | | | | | | +--------+---------+ + + + documented as of this encounter Visit Diagnoses + + | Diagnosis | + + | Chronic obstructive pulmonary disease, unspecified COPD type (HCC) - Primary | + + | Mild persistent asthma without complication Unspecified asthma | + + documented in this encounter"
--- OUTSIDE RECORDS SUMMARY | ~2019-01-15 | XMS | Encounter Summary ---
Demographics + + + | Address | [address] | | | [place] [address] | + + + | Home Phone [...] Team Providers + +------+ + | Care Se[employer]ark Advanced Operator Maintainer Name | Role | Phone | [...] | obstruction, not | | | | [place], | | elsewhere classified | | | | [place] [address] | | ([facility]) | | | | [phone] | | | +--------+ + + + [...] [place] | | | | | | [address] | | | | | | | | +--------+---------+ + + + | 11/24/ | Office | Cardiology | [place], | | | 2019 | Visit | | SINDHU Erickson [address] | | | | | | [place], | | | | | | [place] [address] | | | | | | [phone] | | | | | | | | +--------+---------+ + + + documented as of this encounter Visit Diagnoses + + | Diagnosis | + + | Chronic airway obstruction, not elsewhere classified | + + documented in this encounter"
--- OUTSIDE RECORDS SUMMARY | ~2019-01-15 | XMS | Encounter Summary ---
Demographics + + + | Address | [address] | | | [place] [address] | + + + | Home Phone [...] Providers + +------+ + | Care Dealer Development Manager Name | Role | Phone | + +------+ + | Juan Cherry DO | PCP | | + +------+ + Reason for Visit +--------+ + | Reason | Comments | +--------+ + | Emesis | | +--------+ + Encounter Details +--------+ + + + + | Date | Type | Department | Care Team | Description | +--------+ + + + + | 08/03/ | Emergency | [facility] [place] | Alverto Tyler, | Dehydration (Primary | | 2016 | | [facility] | [address] [address] | Dx); Acute | | | | CENTER [address] | [place], [place] | hypokalemia; Urinary | | | | [place], [place] | [id number] | tract infection | | | | [address] | | without hematuria, | | | | [phone] | | site unspecified | +--------+ + + + + Social [...] + + + | Blood Pressure | 108/49 | 08/04/2015 1:25 PM | | | | | PDT | | + + + + + | Pulse | 71 | 08/04/2015 1:25 PM | | | | | PDT | | + + + + + | Temperature | 36.7 C (98.1 F) | 08/04/2015 10:54 AM | | | | | PDT | | + + + + + | Respiratory Rate | 16 | 08/04/2015 10:54 AM | | | | | PDT | | + + + + + | Oxygen Saturation | 96% | 08/04/2015 1:25 PM | | | | | PDT | | + + + + + | Inhaled Oxygen | - | - | | | Concentration | | | | + + + + + | Weight | 76.7 kg (169 lb) | 08/04/2015 10:54 AM | | | | | PDT | | + + + + + | Height | 157.5 cm (5' 2") | 08/04/2015 10:54 AM | | | | | PDT | | + + + + + | Body Mass Index | 30.91 | 08/04/2015 10:54 AM | | | | | PDT [...] as of this encounter Discharge Instructions Instructions Alverto Tyler MD - 08/04/2015Increase fluids and replace potassium, use Zof ran as needed for nausea. Cephalexin for possible urine infection. Recheck in 4 days if no t improving, otherwise 6 days but sooner if worse documented in this encounter Medications at Time [...] [place] | | | | | | [address] | | | | | | | | +--------+---------+ + + + | 11/24/ | Office | Cardiology | [place], | | | 2019 | Visit | | SINDHU Erickson [address] | | | | | | [place], | | | | | | [place] [address] | | | | | | [phone] | | | | | | | | +--------+---------+ + + + + +------+--------+ + + | Name | Type | Priori | Associated Diagnoses | Date/Time | | | | ty | | | + +------+--------+ + + | ED INFORMATION | BALWINDER | Routin | | 08/04/2015 10:46 AM | | EXCHANGE | | e | | PDT | + +------+--------+ + + documented as of this encounter Procedures + +--------+ + + + | Procedure Name | Priori | Date/Time | Associated Diagnosis | Comments | | | ty | | | | + +--------+ + + + | URINALYSIS WITH | STAT | 08/04/2015 | | Results for this | | MICROSCOPIC WITH | | 12:10 PM | | procedure are in the | | CULTURE IF INDICATED | | PDT | | results section. | + +--------+ + + + | CULTURE, URINE | Routin | 08/04/2015 | | Results for this | | | e | 12:10 PM | | procedure are in the | | | | PDT | | results section. | + +--------+ + + + | CBC W/AUTO | STAT | 08/04/2015 | | Results for this | | DIFFERENTIAL | | 11:44 AM | | procedure are in the | | | | PDT | | results section. | + +--------+ + + + | TROPONIN I | STAT | 08/04/2015 | | Results for this | | | | 11:44 AM | | procedure are in the | | | | PDT | | results section. | + +--------+ + + + | COMPREHENSIVE | STAT | 08/04/2015 | | Results for this | | METABOLIC PANEL | | 11:44 AM | | procedure are in the | | | | PDT | | results section. | + +--------+ + + + | ECG 12 LEAD | STAT | 08/04/2015 | | Results for this | | | | 11:21 AM | | procedure are in the | | | | PDT | | results section. | + +--------+ + + + | ED INFORMATION | Routin | 08/04/2015 | | | | EXCHANGE | e | 10:46 AM | | | | | | PDT | | | + +--------+ + + + documented in this encounter Results Culture, Urine (08/04/2015 12:10 PM PDT) + + + + + [...] [address] | [place] | [phone] | | [facility] | | [address] | | | - LABORATORY | | | | + + + + + Urinalysis with Microscopic with Culture if Indicated (08/04/2015 12:10 PM PDT) + + + + + + | Component | Value | Ref Range | Performed | Pathologist | | | | | At | Signature | + + + + + + | Color | Yellow | Light Yellow, | [facility] | | | | | Yellow, Straw | [facility] | | | | [...] + + + + | Specific | 1.009 | 1.001 - 1.030 | [facility] | | | [place] | | | [facility] | | [...] Leukocyte | Trace (A) | Negative | [facility] [...] Urine | | mg/dL, Negative | [facility] | | | | | | MEDICAL | | | | | | CENTER - | | | | | | LABORATORY | | + + + + + + | WBC UA | 5-10 (A) | 0 - 2 /HPF | [...] + + + + | SQUAMOUS | 15-25 (A) | 0 - 2 /LPF | [...] | [facility] | | | [facility] | | [...] + + + + + + | URINE | Urine Culture Set Up | | [facility] | | | COMMENT | | | [facility] | | [...] | + + + + + | [facility] | [address] | [place] | [phone] | | [facility] | | [address] | | | - LABORATORY | | | | + + + + + Comprehensive Metabolic Panel (08/04/2015 11:44 AM PDT) + + + + [...] + + + + | K | 2.8 (L) | 3.5 - 5.1 | [facility] | | | | | mmol/L | [facility] | | | | | | MEDICAL | | | | | | CENTER - | | | | | | LABORATORY | | + + + + + + | Cl | 95 (L) | 98 - 109 mmol/L | [facility] | | | | | | [facility] | | | | | | MEDICAL | | | | | | CENTER - | | | | | | LABORATORY | | + + + + + + | CO2 | 28 | 24 - 31 mmol/L | [facility] | | | | | | [facility] | | | | | | MEDICAL | | | | | | CENTER - | | | | | | LABORATORY | | + + + + + + | Anion Gap | 13 | 3 - 16 mmol/L | [facility] | | | | | | [facility] | | | | | | MEDICAL | | | | | | CENTER - | | | | | | LABORATORY | | + + + + + + | Glucose | 146 (H) | 70 - 109 mg/dL | [facility] | | | | | | [facility] | | | | | | MEDICAL | | | | | | CENTER - | | | | | | LABORATORY | | + + + + + + | BUN | 22 (H) | 7 - 18 mg/dL | [facility] | | | | | | [facility] | | | | | | [facility]ICAL | | | | | | CENTER - | | | | | | LABORATORY | | + + + + + + | Creatinine | 1.44 (H) | 0.60 - 1.30 | [facility] | | | | | mg/dL | [facility] | | | | | | MEDICAL | | | | | | CENTER - | | | | | | LABORATORY | | + + + + + + | eGFR if not | 39 (L)Comment: | >=60 | [place] | | | | GLOMERULAR FILTRATION | mL/min/1.73m2 | [facility] | | | [facility] | RATE,ESTIMATED | | MEDICAL | | | | mL/min/1.47n6Srkf than | | CENTER - | | [...] + + + + | Calcium | 10.5 | 8.3 - 10.5 | [facility] | | | | | mg/dL | [facility] | | | | | | MEDICAL | | | | | | CENTER - | | | | | | LABORATORY | | + + + + + + | Albumin | 3.2 | 3.2 - 5.0 g/dL | [facility] [...] | appended report. These | | [facility] | | | | results have been | | MEDICAL | | | | appended to a previously | | CENTER - | | | | preliminary verified | | LABORATORY | | | | report. | | | | + + + + + + | Total | 6.1 | 6.0 - 7.8 g/dL | [facility] | | | Protein | | | [facility] | | | | | | MEDICAL | | | | | | CENTER - | | | | | | LABORATORY | | + + + + + + | AST | 17Comment: This is an | 10 - 42 [...] + + + + | ALT | 11Comment: This is an | 6 - 45 [...] + + + + | Alkaline | 72Comment: This is an | 40 - 110 [...] + + | Globulin | 2.9 | 2.1 - 3.8 g/dL | [facility] | | | | | | [facility] | | | | | | MEDICAL | | | | | | CENTER - | | | | | | LABORATORY | | + + + + + + | Albumin/Jewell | 1.1 | 0.8 - 2.0 | [facility] | | | bulin Ratio | | | [facility] | | | | | | MEDICAL | | | | | | CENTER - | | | | | | LABORATORY | | + + + + + + | BUN/Creatin | 15.3 | | [facility] | | | ine [...] + | [facility] | [address] | [place] | [phone] | | [facility] | | [address] | | | - LABORATORY | | | | + + + + + CBC w/ Auto Differential (08/04/2015 11:44 AM PDT) + + + + + + | Component | Value | Ref Range | Performed | Pathologist | | | | | At | Signature | + + + + + + | WBC | 12.3 (H) | 4.0 - 11.0 K/uL | [facility] | | | | | | [facility] | | | | | | MEDICAL | | | | | | CENTER - | | | | | | LABORATORY | | + + + + + + | RBC | 4.72 | 3.70 - 5.20 | [facility] | | | | | M/uL | [facility] | | | | | | MEDICAL | | | | | | CENTER - | | | | | | LABORATORY | | + + + + + + | Hemoglobin | 13.6 | 11.5 - 16.0 | [facility] | | | | | g/dL | [facility] | | | | | | MEDICAL | | | | | | CENTER - | | | | | | LABORATORY | | + + + + + + | Hematocrit | 39.8 | 34.0 - 47.0 % | [facility] | | | | | | [facility] | | | | | | MEDICAL | | | | | | CENTER - | | | | | | LABORATORY | | + + + + + + | MCV | 84.3 | 83.0 - 101.0 fL | [facility] | | | | | | [facility] | | | | | | MEDICAL | | | | | | CENTER - | | | | | | LABORATORY | | + + + + + + | MCH | 28.8 | 28.0 - 35.0 pg | [facility] | | | | | | [facility] | | | | | | MEDICAL | | | | | | CENTER - | | | | | | LABORATORY | | + + + + + + | MCHC | 34.2 | 32.0 - 36.0 | [facility] | [...] + + + + | Platelet | 431 | 140 - 440 K/uL | [facility] | | | Count | | | [facility] | | | | | | MEDICAL | | | | | | CENTER - | | | | | | LABORATORY | | + + + + + + | MPV | 7.5 | fL | [facility] | | | | | | [facility] | | | | | | MEDICAL | | | | | | CENTER - | | | | | | LABORATORY | | + + + + + + | % | 77.0 | 45.0 - 82.0 % | [facility] | | | Neutrophils | | | [facility] | | | | | | MEDICAL | | | | | | CENTER - | | | | | | LABORATORY | | + + + + + + | % | 17.8 (L) | 20.0 - 45.0 % | [facility] | | | Lymphocytes | | | [facility] | | | | | | MEDICAL | | | | | | CENTER - | | | | | | LABORATORY | | + + + + + + | % Monocytes | 4.0 | 4.0 - 12.0 % | [facility] | | | | | | [facility] | | | | | | MEDICAL | | | | | | CENTER - | | | | | | LABORATORY | | + + + + + + | % | 0.5 | 0.0 - 5.0 % | [facility] | | | Eosinophils | | | [facility] | | | | | | MEDICAL | | | | | | CENTER - | | | | | | LABORATORY | | + + + + + + | % Basophils | 0.7 | 0.0 - 1.0 % | [facility] | | | | | | [facility] | | | | | | MEDICAL | | | | | | CENTER - | | | | | | LABORATORY | | + + + + + + | Absolute | 9.50 (H) | 1.80 - 8.50 | [facility] | | | Neutrophils | | K/uL | [facility] | | | | | | MEDICAL | | | | | | CENTER - | | | | | | LABORATORY | | + + + + + + | Absolute | 2.20 | 0.60 - 3.20 | [facility] | | | Lymphocytes | | K/uL | [facility] | | | | | | MEDICAL | | | | | | CENTER - | | | | | | LABORATORY | | + + + + + + | Absolute | 0.50 | 0.00 - 1.00 | [facility] | | | Monocytes | | K/uL | [facility] | | | | | | MEDICAL | | | | | | CENTER - | | | | | | LABORATORY | | + + + + + + | Absolute | 0.10 | 0.00 - 0.40 | [facility] | [...] [address] | [place] | [phone] | | [facility] | | [address] | | | - LABORATORY | | | | + + + + + Troponin I (08/04/2015 11:44 AM PDT) + + + + [...] | | | | | | [employer] | | | | | [...] [address] | [place] | [phone] | | [facility] | | [address] | | | - LABORATORY | | | | + + + + + ECG 12 lead (08/04/2015 11:21 AM PDT) + + + + + + | Component | Value | Ref Range | Performed | Pathologist | | | | | At | Signature | + + + + + + | VENTRICULAR | 71 | BPM | [facility] | | | RATE EKG | | | | | + + + + + + | ATRIAL RATE | 71 | BPM | [facility] | | [...] + + + + | Q-T | 440 | ms | [facility] | | | INTERVAL | | | | | + + + + + + | Q-T | 478 | ms | [facility] | | | INTERVAL | | | | | | (CORRECTED) | | | | | + + + + + + | P WAVE AXIS | 54 | degrees | [facility] | | + + + + + + | QRS AXIS | -20 | degrees | [facility] | | + + + + + + | T AXIS | 36 | degrees | [facility] | | + + + + + + | INTERPRETAT | Normal sinus | | [facility] | | | ION TEXT | rhythmprolonged QTc | | | | | | intervalEarly | | | | | | transitionWhen compared | | | | | | with ECG of 16-APR-2015 | | | | | | 15:51,subtle inferior ST | | | | | | elevation is no longer | | | | | | presentConfirmed by | | | | | | RAFA WELLS MD ([id number]) | | | | | | on 08/06/2015 9:42:29 AM | | | | + + [...] + | Diagnosis | + + | Dehydration - Primary | + + | Acute hypokalemia Hypopotassemia | + + | Urinary tract infection without hematuria, site unspecified | + + documented in this encounter Administered Medications + +--------+ +--------+------+------+ | Medication Order | MAR | Action | Dose | Rate | Site | | | Action | Date | | | | + +--------+ +--------+------+------+ | cephalexin (KEFLEX) capsule 500 | Given | 08/04/19 | 500 mg | | | | mg 500 mg, Oral, ONCE, Fri | | 16 2:00 | | | | | 08/04/15 at 1255, For 1 dose, | | PM PDT | | | | | Indications: UTI - LOWER | | | | | | + +--------+ +--------+------+------+ +---+---+ | | | +---+---+ + +---------+ +--------+-------+---+ | potassium chloride 20 mEq in | New Bag | 08/04/19 | 20 mEq | 130 | | | sodium chloride 0.9% 250 mL IVPB | | 16 12:49 | | mL/hr | | | 20 mEq, Intravenous, Administer | | PM PDT | | | | | over 2 Hours, ONCE, 08/04/15 | | | | | | | at 1245, For 1 dose | | | | | | + +---------+ +--------+-------+---+ +---+---+ | | | +---+---+ + +-------+ +--------+---+---+ | potassium chloride 20 mEq/15 mL | Given | 08/04/19 | 20 mEq | | | | liquid 20 mEq 20 mEq, Oral, | | 16 1:31 | | | | | ONCE, 08/04/15 at 1240, For 1 | | PM PDT | | | | | dose, Give with 4 oz. of water or | | | | | | | other liquid., | | | | | | + +-------+ +--------+---+---+ +---+---+ | | | +---+---+ + +---------+ +--------+-------+---+ | sodium chloride 0.9% (NS) bolus | New Bag | 08/04/19 | 1,000 | 1000 | | | 1,000 mL 1,000 mL, Intravenous, | | 16 11:45 | mLs | mL/hr | | | Administer over 1 Hours, ONCE, | | AM PDT | | | | | 08/04/15 at 1120, For 1 dose | | | | | | + +---------+ +--------+-------+---+ +---+---+ | | | +---+---+ + +---------+ +--------+-------+---+ | sodium chloride 0.9% (NS) bolus | New Bag | 08/04/19 | 1,000 | 1000 | | | 1,000 mL 1,000 mL, Intravenous, | | 16 1:33 | mLs | mL/hr | | | Administer over 1 Hours, ONCE, | | PM PDT | | | | | 08/04/15 at 1240, For 1 dose | | | | | | + +---------+ +--------+-------+---+ +---+---+ | | | +---+---+ documented in this encounter
--- OUTSIDE RECORDS SUMMARY | ~2019-01-15 | XMS | Encounter Summary ---
Demographics + + + | Address | [address] | | | [place] [address] | + + + | Home Phone [...] Team Providers + +------+ + | Care Salesperson Stereo Equipment Name | Role | Phone | + [...] | | CARDIOLOGY [address] | [place], [employer] [address] | tachycardia (HCC); | | | | [place], | [place], | Encounter for lipid | | | | [place] [address] | [place] [address] | screening for | | | | [phone] | [phone] | cardiovascular | | | | | [...] [place] | | | | | | [address] | | | | | | | | +--------+---------+ + + + | 11/24/ | Office | Cardiology | [place], | | | 2019 | Visit | | SINDHU Erickson [address] | | | | | | [place], | | | | | | [place] [address] | | | | | | [phone] | | | | | | | | +--------+---------+ + + + documented as of this encounter Visit Diagnoses + + | Diagnosis | + + | Paroxysmal atrial tachycardia (HCC) Paroxysmal supraventricular tachycardia | + + | Encounter for lipid screening for cardiovascular disease | + + documented in this encounter"
--- OUTSIDE RECORDS SUMMARY | ~2019-01-15 | XMS | Encounter Summary ---
Demographics + + + | Address | [address] | | | [place] [address] | + + + | Home Phone [...] Team Providers + +------+ + | Care Stem Mounter Name | Role | Phone | + [...] + + | 05/19/ | Office | [facility] | Brian Miranda | Sprain of chest wall | | 2013 | Visit | [facility] THERAPY PT | MD [phone] | (Primary Dx) | | | | OP [address] | [facility] | | | | | [place] | [place] [address] | | | | | [address] | [phone] | | | | | [phone] | | | | | | | Janey Low, | | | | | | [employer] [address] | | | | | | [place] | | | | | | [address] | | | | | | [phone] | | | | | | | [...] of this encounter Progress Notes Janey Low, [employer]DUCTION - 05/19/2013 1:38 PM PDTFormatting of this note might be different f rom the original. [facility] CTR THERAPY PT OP [address] [place] [address] Physical Therapy Daily Treatment Note Date: 05/19/2013 [...] Patient Name: Rosario Malik/: 1965/ Start Time: 844 Stop time: 929 Duration: 45 minutes Timed [...] had pain with normal breathing. Deep breathing /10. W ould of been up to 8/10 without the tape. A: Pt motivated to [...] [place] | | | | | [facility] | | | | | [address] | | | | | | | | +--------+---------+ + + + | 11/24/ | Office | Cardiology | [place], | | | 2020 | Visit | | SINDHU Erickson [address] | | | | | | [place], | | | | | | [place] [address] | | | | | | [phone] | | | | | | | | +--------+---------+ + + + documented as of this encounter Visit Diagnoses + + | Diagnosis | + + | Sprain of chest wall - Primary Other specified sites of sprains and strains | + + documented in this encounter
--- OUTSIDE RECORDS SUMMARY | ~2019-01-15 | XMS | Encounter Summary ---
Demographics + + + | Address | [address] | | | [place] [address] | + + + | Home Phone [...] Team Providers + +------+ + | Care Dermatology Physician Assistant Name | Role | Phone | [...] [address] | | | | | [place], | [place] [address] | | | | | [place] [address] | [address] | | | | | [phone] | | | +--------+--------+ + + + [...] | | | | | | [place] [address] | | | | | | [phone] | | | | | | | | +--------+---------+ + + + documented as of this encounter Visit Diagnoses Not on filedocumented in this encounter"
--- OUTSIDE RECORDS SUMMARY | ~2019-01-15 | XMS | Encounter Summary ---
Demographics + + + | Address | [address] | | | [place] [address] | + + + | Home Phone [...] Team Providers + +------+ + | Care Block Cutter Name | Role | Phone | + +------+ + | Juan Cherry DO | PCP | | + +------+ + Reason for Visit +--------+ + | Reason | Comments | +--------+ + | COPD | one month follow-up | +--------+ + | Asthma | | +--------+ + Encounter Details +--------+---------+ + + + | Date | Type | Department | Care Team | Description | +--------+---------+ + + + | 04/18/ | Office | [facility] | Kevin Sandoval, | COPD (chronic | | 2015 | Visit | PULMONARY [address] | MD [address] | obstructive | | | | [place], | [place], [place] | pulmonary disease) | | | | [place] [address] | [address] | ([facility]) (Primary Dx); | | | | [phone] | | GARRY (obstructive | | | | | | sleep apnea); | | | | | | Hypoxemia; Central | | | [...] + | Blood Pressure | 88/60 | 04/18/2014 8:41 AM | | | | | PST | | + + + + + | Pulse | 91 | 04/18/2014 8:41 AM | | | | | PST | | + + + + + | Temperature | - | - | | + + + + + | Respiratory Rate | 18 | 04/18/2014 8:41 AM | | | | | PST | | + + + + + | Oxygen Saturation | 95% | 04/18/2014 8:41 AM | | | | | PST | | + + + + + | Inhaled Oxygen | - | - | | | Concentration | | | | + + + + + | Weight | 75.3 kg (166 lb) | 04/18/2014 8:41 AM | | | | | PST | | + + + + + | Height | 157.5 cm (5' 2") | 04/18/2014 8:41 AM | | | | | PST | | + + + + + | Body Mass Index | 30.36 | 04/18/2014 8:41 AM | | | | | PST [...] Instructions Patient Instructions Kevin Sandoval MD - 04/18/2014 9:15 AM [facility] Patient Education Prednisone Gastro-resistant tablet Prednisone Oral solution Prednisone Oral tablet Prednisone Oral tablet What is this medicine? PREDNISONE (PRED ni sone) is a corticosteroid. It is commonly used to treat inflammation of the skin, joints, lungs, and other organs. Common conditions treated include asthma, allerg ies, and arthritis. It is also used for other conditions, such as blood disorders and diseas es of the adrenal glands. This medicine may be used for other purposes; ask your health care provider or pharmacist i f you have questions. What should I tell my health care provider before I take this medicine? They need to know if you have any of these conditions: Aysha's syndrome diabetes glaucoma heart disease high blood pressure infection (especially a virus infection such as chickenpox, cold sores, or herpes) kidney disease liver disease mental illness myasthenia gravis osteoporosis seizures stomach or intestine problems thyroid disease an unusual or allergic reaction to lactose, prednisone, other medicines, foods, dyes, or preservatives or trying to get breast-feeding How should I use this medicine? Take this medicine by mouth with a glass of water. Follow the directions on the prescriptio n label. Take this medicine with food. If you are taking this medicine once a day, take it i n the morning. Do not take more medicine than you are told to take. Do not suddenly stop salvador ing your medicine because you may develop a severe reaction. Your doctor will tell you how m uch medicine to take. If your doctor wants you to stop the medicine, the dose may be slowly lowered over time to avoid any side effects. Talk to your ehs specialist regarding the use of this medicine in children. Special care may be needed. Overdosage: If you think you have taken too much of this medicine contact a poison control center or emergency room at once. NOTE: This medicine is only for you. Do not share this medicine with others. What if I miss a dose? If you miss a dose, take it as soon as you can. If it is almost time for your next dose, ta lk to your doctor or health day care supervisor. You may need to miss a dose or take an extra dose. Do not take double or extra doses without advice. What may interact with this medicine? Do not take this medicine with any of the following medications: metyrapone mifepristone This medicine may also interact with the following medications: aminoglutethimide amphotericin B aspirin and aspirin-like medicines barbiturates certain medicines for diabetes, like glipizide or glyburide cholestyramine cholinesterase inhibitors cyclosporine digoxin diuretics ephedrine female hormones, like estrogens and control pills isoniazid ketoconazole NSAIDS, medicines for pain and inflammation, like ibuprofen or naproxen phenytoin rifampin toxoids vaccines warfarin This list may not describe all possible interactions. Give your health care provider a list of all the medicines, herbs, non-prescription drugs, or dietary supplements you use. Also t ell them if you smoke, drink alcohol, or use illegal drugs. Some items may interact with you r medicine. What should I watch for while using this medicine? Visit your doctor or health day care supervisor for regular checks on your progress. If you a re taking this medicine over a prolonged period, carry an identification card with your name and address, the type and dose of your medicine, and your doctor's name and address. This medicine may increase your risk of getting an infection. Tell your doctor or health ca re professional if you are around anyone with measles or chickenpox, or if you develop sores or blisters that do not heal properly. If you are going to have surgery, tell your doctor or health day care supervisor that you hav e taken this medicine within the last twelve months. Ask your doctor or health day care supervisor about your diet. You may need to lower the amou nt of salt you eat. This medicine may affect blood sugar levels. If you have diabetes, check with your doctor o r health day care supervisor before you change your diet or the dose of your diabetic medicine . What side effects may I notice from receiving this medicine? Side effects that you should report to your doctor or health day care supervisor as soon as p ossible: allergic reactions like skin rash, itching or hives, swelling of the face, lips, or tong ue changes in emotions or moods changes in vision depressed mood eye pain fever or chills, cough, sore throat, pain or difficulty passing urine increased thirst swelling of ankles, feet Side effects that usually do not require medical attention (report to your doctor or health day care supervisor if they continue or are bothersome): confusion, excitement, restlessness headache nausea, vomiting skin problems, acne, thin and shiny skin trouble sleeping weight gain This list may not describe all possible side effects. Call your doctor for medical advice a bout side effects. You may report side effects to FDA at 8-910-PXI-8637. Where should I keep my medicine? Keep out of the reach of children. Store at room temperature between 15 and 30 degrees C (59 and 86 degrees F). Protect from l ight. Keep container tightly closed. Throw away any unused medicine after the expiration staci e. NOTE:This sheet is a summary. It may not cover all possible information. If you have questi ons about this medicine, talk to your doctor, pharmacist, or health care provider. Copyright 2014 Gold Standard documented in this encounter Progress Notes Kevin Sandoval MD - 04/18/2014 9:05 AM PSTFormatting of this note might be different f rom the original. Pulmonary Follow Up 04/18/2014 [facility] Rosario Malik is a 49 y.o. female patient of Juan Cherry DO here today for foll ow up of GARRY and COPD. The last pulmonary clinic visit was on 03/21/14. Since their last appointment they feel lik e their breathing issues have been stable. They have not had any acute pulmonary illnesses. The patient has not required a prednisone taper since our last clinic appointment. Likewis e Rosario Malik has not required antibiotics for a COPD exacerbation since our last [facility] appointment. They are currently on a daily regimen of prednisone, Advair and Spiriva for their COPD. Th ey do feel like this medication regimen is controlling their symptoms. On low dose predniso ne for 1.5 months. Currently she is using their short acting inhaler, ProAir, 1-2 times a day. They are using their Duoneb nebulizer, 0 times a day. Currently the patient is able to walk 3 blocks at their own pace on level ground before dev eloping dyspnea. They are not exercising regularly. They are not enrolled in cardiac/pulmon nohemi rehabilitation. They have not completed pulmonary rehabilitation in the past. The patient does cough chronically, and does not produce mucous. They have not had hemoptys is since our last appointment. She has been evaluated for nocturnal oxygen. They currently are using nocturnal oxygen pl us CPAP. They are currently on 2 LPM at night while sleeping. They report excellent complian ce. They have not reported recent symptoms of nasal congestion, runny nose or post nasal drip. The patient have received this year's influenza vaccination. They are up to date with thei r Pneumovax. The patient is not using tobacco. Her episode of diverticulitis has apparently resolved. Past Medical History Past Medical History Diagnosis [...] [facility]) 10/28/2012 Overview: Managed by [facility] along with hypothyroidism Osteoarthritis Tachycardia Asthma Emphysema Migraine Migraines Social History: She reports that she quit smoking about 8 months ago. She has never used smokeless [...] mg tablet, Take 1 tablet by mouth Daily., Disp: 30 tablet, Rfl: 3, Respiratory Therapy Supplies [facility], Please provide patient with necessary CPAP supplies (she did not specify, okay to send order as appropriate) Diagnosis Code(s)327.23 . Length of Nee d 99 months. Please send order to [facility]., Disp: 1 each, Rfl: 0, Respiratory Therapy Supplies [facility], Change CPAP back to 11-14 cm H2O. All necessary supplies . No oxygen bleed in. Diagnosis Code(s)327.23. Length of Need: Lifetime. Please send order t o [facility]. This is not a new order, just a change in settings., Disp: 1 eac h, Rfl: 99, ; rizatriptan (MAXALT) 10 mg tablet, Take 1 tablet by mouth as needed for Migra ine. May repeat in 2 hours if needed, Disp: 30 tablet, Rfl: 6, roflumilast (DALIRESP) 500 mcg tablet, Take 1 tablet by mouth Daily., Disp: 30 tablet, Rfl: 11, ; SPIRIVA HANDIHALER 18 MCG inhalation capsule, INHALE ONE CAPSULE BY MOUTH VIA HANDIH ALER DAILY, Disp: 30 capsule, Rfl: 0, ; [...] Denies urticaria and allergic rash. Objective BP 88/60 | Pulse 91 | Resp 18 | Ht 1.575 m (5' 2") | Wt 75.297 kg (166 lb) | BMI 30.35 kg/m2 | SpO2 95% Appearance: Alert, cooperative, [...] normal. No apparent weakness. Assessment 1. COPD over the last month mentioned symptoms have remained stable on Spiriva, Advair a nd low-dose prednisone. Unfortunately the patient notes weight gain. The patient's weight has increased 5 pounds and 14 ounces since her last clinic appointment. It appears that cli nical stability has occurred since low-dose prednisone was initiated. Discussion ensued regarding attempting to further lower the patient's prednisone. 2. Obstructive sleep apnea currently managed with CPAP at a pressure of 9 cm H2O. [place] lent compliance noted. 3. Hypoxemia patient wears supplemental oxygen through CPAP at night while sleeping. Et iology of hypoxemia likely related to COPD. Plan 1. Decrease prednisone to 10 mg every other day. 2. Otherwise no change in the patient's COPD medication regimen. 3. The interval between pulmonary clinic follow-up appointments will be length to 2 months . CC: Juan Cherry documented in this encounter Plan of Treatment +--------+---------+ + + + | Date | Type | Specialty | Care Team | Description | +--------+---------+ + + + | 03/01/ | Office | Pulmonology | Amber, Mukul, MD | | | 2019 | Visit | | [address] | | | | | | [place] | | | | | | [address] | | | | | | | | +--------+---------+ + + + | 11/24/ | Office | Cardiology | [place], | | | 2019 | Visit | | [address] | | | | | | [place], | | | | | | [place] [address] | | | | | | [phone] | | | | | | | [...]
--- OUTSIDE RECORDS SUMMARY | ~2019-01-15 | XMS | Encounter Summary ---
Demographics + + + | Address | [address] | | | [place] [address] | + + + | Home Phone [...] Team Providers + +------+ + | Care Surface Plate Inspector Name | Role | Phone | [...] Alonso MD | | | | | [place], | | | | | | [place] [address] | | | | | | [phone] | | | +--------+--------+ + + + [...] | | | | | | [place] [address] | | | | | | [phone] | | | | | | | | +--------+---------+ + + + documented as of this encounter Visit Diagnoses Not on filedocumented in this encounter"
--- OUTSIDE RECORDS SUMMARY | ~2019-01-15 | XMS | Encounter Summary ---
Demographics + + + | Address | [address] | | | [place] [address] | + + + | Home Phone [...] Providers + +------+ + | Care Press Set Up Name | Role | Phone | + +------+ + PCP | Unavailable | + +------+ + Encounter Details +--------+ + + + + | Date | Type | Department | Care Team | Description | +--------+ + + + + | 05/01/ | Hospital | [facility] | Alexi Guaman, | | | 2010 | Encounter | MED CTR EMERGENCY | [address] | | | | | CENTER [address] | [place] | | | | | [place] | [address] | | | | | [address] | | | | | | [phone] | | | +--------+ + + + [...] [place] | | | | | | [address] | | | | | | | | +--------+---------+ + + + | 11/24/ | Office | Cardiology | [place], | | | 2019 | Visit | | SINDHU Erickson [address] | | | | | | [place], | | | | | | [place] [address] | | | | | | [phone] | | | | | | | [...] + | [facility] | [address] | [place] | [phone] | | [facility] | | [address] | | | - LABORATORY | | | | + + + + + | [facility] | [address] | [place] | | | [facility] | | [address] | | | - LABORATORY | | [...] + | [facility] | [address] | [place], [place] | [phone] | | [facility] | | [address] | | | - LABORATORY | | | | + + + + + | [facility] | [address] | [place], [place] | | | [facility] | | [address] | | | - LABORATORY | | | | + + + + + XR Chest PA or AP (05/01/2010 5:32 PM PST) + + | Specimen | + + | | + + + + + | Narrative | Performed At | + + + | [facility] Diagnostic Imaging Department | [facility] | | [address] [facility] | [facility] | | PORTABLE CHEST, 05/01/2010 AT | [...] Transcribed Date/Time: | | | 05/02/2010 11:54 Media Manager: <Electronically Signed | | | by Cesar Ren MD> 05/02/10 1555 | | + + + + ---------+ | Procedure Note | + ---------+ | Reed, Rad Conversion - 04/02/2013 2:24 PM [facility] | | Diagnostic Imaging Department [address] [place] [address] | | PORTABLE CHEST, 05/01/2010 AT 1807 [...] 11:04 Transcribed Date/Time: 05/02/2010 11:54 | | Media Manager: <Electronically Signed by Cesar Ren MD> 05/02/10 [...] 11:04 | |Transcribed Date/Time: 05/02/2010 11:54 | |Media Manager: | |<Electronically Signed by Cesar Ren MD> 05/02/10 1555 | + ---------+ + +---------+ + + | Performing | Address | City/State/Zipcode | Phone Number | | Organization | | | | + +---------+ + + | [place] | | | | | [facility] | | | | + +---------+ + + documented in this encounter Visit Diagnoses Not on filedocumented in this encounter"
--- OUTSIDE RECORDS SUMMARY | ~2019-01-15 | XMS | Encounter Summary ---
Demographics + + + | Address | [address] | | | [place] [address] | + + + | Home Phone [...] Providers + +------+ + | Care Digital Pre Press Operator Name | Role | Phone [...] [address] | | | | | [place], | [place], | | | | | [place] [address] | [place] [address] | | | | | [phone] | [phone] | | | | | | | [...] [place] | | | | | | [address] | | | | | | | | +--------+---------+ + + + | 11/24/ | Office | Cardiology | [place], | | | 2019 | Visit | | SINDHU Erickson [address] | | | | | | [place], | | | | | | [place] [address] | | | | | | [phone] | | | | | | | [...] ST. | [address] | [place] | [phone] | | [facility] | | [address] | | | - LABORATORY | | [...]
--- OUTSIDE RECORDS SUMMARY | ~2019-01-15 | XMS | Encounter Summary ---
Demographics + + + | Address | [address] | | | [place] [address] | + + + | Home Phone [...] Team Providers + +------+ + | Care Tower Crane Operator Name | Role | Phone | + +------+ + PCP | Unavailable | + +------+ + Encounter Details +--------+ + + + + | Date | Type | Department | Care Team | Description | +--------+ + + + + | 06/09/ | Hospital | [facility] | [place], | | | 2009 | Encounter | MED CTR EMERGENCY | Ozzy Kim MD [address] | | | | | [place] [address] | [address] [facility] | | | | | [place], [place] | [place] [address] | | | | | [address] | [phone] | | | | | [phone] | | | +--------+ + + + [...] [place] | | | | | | [id number] | | | | | | | | +--------+---------+ + + + | 11/24/ | Office | Cardiology | [place], | | | 2019 | Visit | | [address] | | | | | | [place] | | | | | | [place] [address] | | | | | | [phone] | | | | | | | | +--------+---------+ + + + documented as of this encounter Visit Diagnoses Not on filedocumented in this encounter"
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
--- OUTSIDE RECORDS SUMMARY | ~2019-01-15 | XMS | Encounter Summary ---
Demographics + + + | Address | [address] | | | [place] [address] | + + + | Home Phone [...] Team Providers + +------+ + | Care Fringe Weaver Name | Role | Phone | [...] + + | 03/10/ | Office | [facility] | [place], | Generalized | | 2019 | Visit | CARDIOLOGY [address] | [address] | weakness; | | | | [place], | [place], | Palpitations; | | | | [place] [address] | [place] [address] | Paroxysmal atrial | | | | [phone] | [phone] | tachycardia (HCC); | | | | [...] Since that time, she was seen in [facility] emergency department due to a fall and [...] Need 99 months. Please send order to [facility]. 1 each 0 Respiratory Therapy Supplies MISC Change CPAP back to 11-14 cm H2O. All necessary suppl ies. No oxygen bleed in. Diagnosis Code(s)327.23. Length of Need: Lifetime. Please send orde r to [facility]. This [...] kg (155 lb 13.8 oz) | B MO 29.45 kg/m Physical Exam Constitutional: She is [...] RESULTS reviewed during visit today primarily from [facility]: LIPID Lab Results Component Value Date [...] BNP 45 2018 I reviewed records from [facility] for hospitalization,including H& P, Discharge Summary and lab reports on 2018 which is summarized in the HPI. RESULTS- I reviewed reports from [facility]: No results found. ECHO 01/10/2018 - [...] and v entricular function done at the [facility]. LVEF 78%. C. [...] She is in class II of the [employer] functional clas s. There are [...] She was seen at the ED of [facility] 3 weeks ago and again 1 [...] this chart may have been created with [employer] voice recognition software. Occasi onal wrong-word or [...] [place] | | | | | | [id number] | | | | | | | | +--------+---------+ + + + | 11/24/ | Office | Cardiology | [place], | | | 2019 | Visit | | SINDHU Erickson [address] | | | | | | [place] | | | | | | [place] [address] | | | | | | [phone] | | | | | | | [...] MD | | | | | | ([id number]) on 03/11/2018 | | | | | [...]
--- OUTSIDE RECORDS SUMMARY | ~2019-01-15 | XMS | Encounter Summary ---
Demographics + + + | Address | [address] | | | [place] [address] | + + + | Home Phone [...] Team Providers + +------+ + | Care Wheel Worker Name | Role | Phone | [...] | Specialty | Physical | Diagnoses | [place], | [facility] | | | Services | Therapy | | Grant Maynard MD | Pt Acute | | | Required | | Fibromyalgia | [address] | [address] | | | | | | [address] [place] | [place], | | | | | | [place], [place] | [place] | | | | | | [address] | [address] | | | | | | Phone: | Phone: | | | | | | [phone] | [phone] | | | | | | Fax: | Fax: | | | | | | [phone] | [phone] | +--------+ + + + + + Reason for Visit + + + | Reason | Comments | + + + | New Patient | Establish care | + + + Encounter Details +--------+---------+ + + + | Date | Type | Department | Care Team | Description | +--------+---------+ + + + | 03/02/ | Office | [facility] | Grant Castle, | ORGANIC INSOMNIA | | 2013 | Visit | MEDICINE GIANAGATDrew | [address] | UNSPECIFIED (Primary | | | | [address] | [place] | Dx); Primary | | | | [place] | [address] | central sleep apnea; | | | | [address] | | Tobacco user; | | | | [phone] | | Posttraumatic stress | | | [...] your behavior and peer support. Call the [facility] Quitline for more information. 029-XDDN-QVX (451-362-7288). Low-cost or free programs are offered by many hospitals, local chapters of the [place] [employer] (906-611-8499) a nd the [place] [employer] ([phone]). Support at home is important too. Non-smokers can help by offering praise and encouragement. If the smoker fails to quit, encourage them to try again! WBDI-ROA-AEXQGEG MEDICINES: For those who can't quit on [...] such as bupropion (Zyban, Wellbutrin), varenicline (Chantix, Belfry ix), a niocotine inhaler or nasal spray. [...] smoking, visit the following links: National Cancer Big Bar , Clearing the Air, Quit Smoking Today - an online tejada klet. http://www.smokefree.gov/pubs/clearing_the_air.pdf Smokefree.gov http://smokefree.gov/ QuitNet http://www.quitnet.com/ 0416-3374 Rafael NeumannDeo, [address] [place] [address]. All rights reserve d. This information is [...] to relax by reading or listening to [employer] music. 7. Limit daytime napping to one [...] there) Anxiety, depression Several days without sleeping [id number] [facility], [address] [place] [address]. All rights reserve d. This information is [...] she does wor k. 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 She [...] She has had to be admitted to [facility] and [facility] due to suicidal ideation by overdose. Sh drew did attempt suicide once, can't recall the medicine. This was in 1986 and 1988. No thoug hts of SI or HI in years. She has hypothryroidism managed by [facility]. 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 She has fibromyalgia treated with cymbalta and tramadol. Tried PT years ago. Can't afford [employer] membership. Patient's medications, allergies, past medical, surgical, [...] month if she stays with me. Valeriano Castel MD documented in this e ncounter Plan [...] | | | | | | [place] [address] | | | | | | [phone] | | | | | | | [...]
--- OUTSIDE RECORDS SUMMARY | ~2019-01-15 | XMS | Encounter Summary ---
Demographics + + + | Address | [address] | | | [place] [address] | + + + | Home Phone [...] Team Providers + +------+ + | Care Scrap Hoist Operator Name | Role | Phone | + +------+ + PCP | Unavailable | + +------+ + Encounter Details +--------+ + + + + | Date | Type | Department | Care Team | Description | +--------+ + + + + | 08/09/ | Hospital | [facility] | [place], | | | 2009 | Encounter | MED CTR EMERGENCY | Ozzy Kim MD [address] | | | | | [place] [address] | [address] [facility] | | | | | [place], [place] | [place] [address] | | | | | [address] | [phone] | | | | | [phone] | | | +--------+ + + + [...] [place] | | | | | | [id number] | | | | | | | | +--------+---------+ + + + | 11/24/ | Office | Cardiology | [place], | | | 2019 | Visit | | SINDHU Erickson [address] | | | | | | [place] | | | | | | [place] [address] | | | | | | [phone] | | | | | | | | +--------+---------+ + + + documented as of this encounter Visit Diagnoses Not on filedocumented in this encounter"
--- OUTSIDE RECORDS SUMMARY | ~2019-01-15 | XMS | Encounter Summary ---
Demographics + + + | Address | [address] | | | [place] [address] | + + + | Home Phone [...] Providers + +------+ + | Care Production Statistical Clerk Name | Role | Phone | [...] medication) | | | | [place] | [facility] | | | | | [address] | [place] [address] | | | | | [phone] | [phone] | | | | | | | [...] [place] | | | | | | [address] | | | | | | | | +--------+---------+ + + + | 11/24/ | Office | Cardiology | [place], | | | 2019 | Visit | | SINDHU Erickson [address] | | | | | | [place], | | | | | | [place] [address] | | | | | | [phone] | | | | | | | | +--------+---------+ + + + documented as of this encounter Visit Diagnoses Not on filedocumented in this encounter"
--- OUTSIDE RECORDS SUMMARY | ~2019-01-15 | XMS | Encounter Summary ---
Demographics + + + | Address | [address] | | | [place] [address] | + + + | Home Phone [...] Team Providers + +------+ + | Care Exceptional Student Education Aide Name | Role | Phone | + +------+ + PCP | Unavailable | + +------+ + Encounter Details +--------+ + + + + | Date | Type | Department | Care Team | Description | +--------+ + + + + | 07/25/ | Hospital | [facility] | [place], | | | 2010 | Encounter | MED CTR EMERGENCY | Ozzy Kim MD [address] | | | | | CENTER [address] | [address] [facility] | | | | | [place], [place] | [place] [address] | | | | | [address] | [phone] | | | | | [phone] | | | +--------+ + + + [...] | | | | [facility] | | | | | | [address] | | | | | | | | +--------+---------+ + + + | 11/24/ | Office | Cardiology | [place], | | | 2019 | Visit | | SINDHU Erickson [address] | | | | | | [place], | | | | | | [place] [address] | | | | | | [phone] | | | | | | | | +--------+---------+ + + + documented as of this encounter Procedures + +--------+ + + + | Procedure Name | Priori | Date/Time | Associated Diagnosis | Comments | | | ty | | | | + +--------+ + + + | URINALYSIS, REFLEX | Routin | 07/25/2010 | | Results for this | | MICROSCOPIC AND/OR | e | 5:25 AM | | procedure are in the | | CULTURE | | PDT | | results section. | + +--------+ + + + documented in this encounter Results Urinalysis, Reflex Microscopic and/or Culture (07/25/2010 5:25 AM PDT) + + + + + + | Component | Value | Ref Range | Performed | Pathologist | | | | | At | Signature | + + + + + + | COLLECTION | CL.CATCH | | [facility] | | | METHOD [...] - 1.030 | [facility] | | | [place] | | | [facility] | | [...] + + + | pH, Urine | 7.0 | 5.0 - 8.0 | [facility] | [...] + + + + | SQUAMOUS | RARE | FEW /hps | [facility] | | | EPITHELIAL | | | [facility] | | | [facility] | | | MEDICAL | | | | | | CENTER - | | | | | | LABORATORY | | + + + + + + | BACTERIA UA | FEW | NONE /hpf | [facility] | | [...] + | [facility] | [address] | [place], [place] | [phone] | | [facility] | | [address] | | | - LABORATORY | | | | + + + + + | [facility] | [address] | [place] | | | [facility] | | [address] | | | - LABORATORY | | | | + + + + + documented in this encounter Visit Diagnoses Not on filedocumented in this encounter"
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
--- OUTSIDE RECORDS SUMMARY | ~2019-01-15 | XMS | Encounter Summary ---
Demographics + + + | Address | [address] | | | [place] [address] | + + + | Home Phone [...] Team Providers + +------+ + | Care Team Assembly Line Machine Operator Name | Role | Phone [...] | RN | | | | | [place], | | | | | | [place] [address] | | | | | | [phone] | | | +--------+ + + + [...] [place] | | | | | | [address] | | | | | | | | +--------+---------+ + + + | 11/24/ | Office | Cardiology | [place], | | | 2019 | Visit | | [address]INDHU Erickson [address] | | | | | | [place], | | | | | | [place] [address] | | | | | | [phone] | | | | | | | | +--------+---------+ + + + documented as of this encounter Visit Diagnoses Not on filedocumented in this encounter"
--- OUTSIDE RECORDS SUMMARY | ~2019-01-15 | XMS | Encounter Summary ---
Demographics + + + | Address | [address] | | | [place] [address] | + + + | Home Phone [...] Team Providers + +------+ + | Care Cross Tie Maker Name | Role | Phone [...] + + | 02/22/ | Office | [facility] [place] [place] | [place], | COPD exacerbation | | 2012 | Visit | PULMONARY [address] | Loreta Alonso MD | ([facility]) (Primary Dx); | | | | [place], | | [place] (obstructive | | | | [place] [address] | | sleep apnea); | | | | [phone] | | Central sleep apnea; | | [...] MD [place] [facility] [address] [place], [address] [facility] Rosario Malik is a 48 y.o. 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 documented in t his encounter Plan of Treatment +--------+---------+ + + + | Date | Type | Specialty | Care Team | Description | +--------+---------+ + + + | 03/01/ | Office | Pulmonology | Mukul Clark MD | | | 2019 | Visit | | [address] | | | | | | [place] | | | | | | [address] | | | | | | | | +--------+---------+ + + + | 11/24/ | Office | Cardiology | [place], | | | 2019 | Visit | | SINDHU Erickson [address] | | | | | | [place], | | | | | | [place] [address] | | | | | | [phone] | | | | | | | [...]
--- OUTSIDE RECORDS SUMMARY | ~2019-01-15 | XMS | Encounter Summary ---
Demographics + + + | Address | [address] | | | [place] [address] | + + + | Home Phone [...] Providers + +------+ + | Care Fire Captain Name | Role | Phone | [...] + + | 03/10/ | Office | [facility] | [place], | Generalized | | 2019 | Visit | CARDIOLOGY [address] | SINDHU Erickson [address] | weakness; | | | | [place], | [place], | Palpitations; | | | | [place] [address] | [place] [address] | Paroxysmal atrial | | | | [phone] | [phone] | tachycardia (HCC); | | | | [...] Since that time, she was seen in [facility] emergency department due to a fall [...] Lifetime. Please send orde r to [facility]. This is [...] kg (155 lb 13.8 oz) | B KS 29.45 kg/m Physical Exam Constitutional: She is [...] reviewed during visit today primarily from [facility]: LIPID Lab Results Component Value [...] 45 2018 I reviewed records from [facility] for hospitalization,including H& P, Discharge Summary and lab reports on 2018 which is summarized in the HPI. RESULTS- I reviewed reports from [facility]: No results found. ECHO 01/10/2018 [...] and v entricular function done at the [facility]. LVEF 78%. C. Holter Monitor 08/16/13 Underlying [...] She is in class II of the [place] [employer] functional clas s. There are [...] She was seen at the ED of [facility] 3 weeks ago and again 1 week [...] this chart may have been created with [employer] voice recognition software. Occasi onal wrong-word or [...] [place] | | | | | | [id number] | | | | | | | | +--------+---------+ + + + | 11/24/ | Office | Cardiology | [place], | | | 2019 | Visit | | SINDHU Erickson [address] | | | | | | [place] | | | | | | [place] [address] | | | | | | [phone] | | | | | | | [...] MD | | | | | | ([id number]) on 03/11/2018 | | | | | [...]
--- OUTSIDE RECORDS SUMMARY | ~2019-01-15 | XMS | Encounter Summary ---
Demographics + + + | Address | [address] | | | [place] [address] | + + + | Home Phone [...] Team Providers + +------+ + | Care Valuation Manager Name | Role | Phone | + +------+ + | Juan Cherry DO | PCP | | + +------+ + Encounter Details +--------+ + + + + | Date | Type | Department | Care Team | Description | +--------+ + + + + | 09/09/ | Hospital | [facility] | Conversion | Pain | | 2015 | Encounter | CONVERSION [address] | Transaction, | | | | | [address] | Provider Unknown | | | | | [place], [place] | [phone] | | | | | [address] | | | | | | [phone] | | | +--------+ + + + [...] | | | | [address] [facility] | | | | | | [address] | | | | | | | | +--------+---------+ + + + | 11/24/ | Office | Cardiology | [place], | | | 2019 | Visit | | SINDHU Erickson [address] | | | | | | [place], | | | | | | [place] [address] | | | | | | [phone] | | | | | | | [...]
--- OUTSIDE RECORDS SUMMARY | ~2019-01-15 | XMS | Encounter Summary ---
Demographics + + + | Address | [address] | | | [place] [address] | + + + | Home Phone [...] Team Providers + +------+ + | Care Glazier Artist Name | Role | Phone | + +------+ + PCP | Unavailable | + +------+ + Encounter Details +--------+ + + + + | Date | Type | Department | Care Team | Description | +--------+ + + + + | 01/24/ | Hospital | [facility] | Avi Guru Garzon, | | | 2009 | Encounter | MED CTR EMERGENCY | MD [address] | | | | | CENTER [address] | [facility] [place] | | | | | [place], [place] | [place] [address] | | | | | [address] | [phone] | | | | | [phone] | | | +--------+ + + + [...] [place] | | | | | | [address] | | | | | | | | +--------+---------+ + + + | 11/24/ | Office | Cardiology | [place], | | | 2020 | Visit | | SINDHU Erickson [address] | | | | | | [place], | | | | | | [place] [address] | | | | | | [phone] | | | | | | | | +--------+---------+ + + + documented as of this encounter Visit Diagnoses Not on filedocumented in this encounter"
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
--- OUTSIDE RECORDS SUMMARY | ~2019-01-15 | XMS | Encounter Summary ---
Demographics + + + | Address | [address] | | | [place] [address] | + + + | Home Phone [...] Providers + +------+ + | Care Cyber Threat Analyst Name | Role | Phone | [...] + + | 05/13/ | Office | [facility] | Andriy Weber | Pyuria (Primary Dx); | | 2017 | Visit | [address] | MD [address] | Interstitial | | | | [place] | [address] | cystitis | | | | [address] | [place] [address] | | | | | [phone] | [phone] | | | | | | | [...] at bedtime. She ran out of her me dications approximately 2 weeks ago, and developed [...] a past medical history of Adrenal insufficiency ([facility]); Anxiety; Asthma; Benign neop lasm of pituitary gland and craniopharyngeal duct (pouch) ([facility]) (10/28/2012); Bilateral renal cysts; Complex sleep apnea syndrome; COPD (chronic obstructive pulmonary disease) ([facility]) (201 2); Depression; Diverticulitis; Diverticulosis; Emphysema; Fibromyalgia; [...] takes this da rigoberto Respiratory Therapy Supplies [facility] Please provide patient with necessary CPAP supplies ( she did not specify, okay to send order as appropriate) Diagnosis Code(s)327.23 . Length of Need 99 months. Please send order to [facility]. 1 each 0 Respiratory Therapy Supplies [facility] Change CPAP back to 11-14 cm H2O. [...] of instillation, we can use a 20 Venezuelan catheter to determine urethral patency. I suggested [...] t is made to edit the content, name plate stamper errors may occur. Occasional wrong- word or [...] | | | | [place], [place] | | | | | | [address] | | | | | | | | +--------+---------+ + + + | 11/24/ | Office | Cardiology | Flores, | | | 2019 | Visit | | SINDHU Erickson [address] | | | | | | [place], | | | | | | [place] [address] | | | | | | [phone] | | | | | | | [...] 1.001 - 1.030 | | | | [place], | | | | | | UA, [...] + + + + | SQUAMOUS | 50-100 (A) | 0 - 2 [...] + + + + | AMORPHOUS | Few (A) | None Seen /HPF | [facility] | | [facility] | | [facility] | [facility] | | [facility] - | | | | | | LABORATORY | | + + + + + + | URINE | Urine Culture Not | | [facility] | | | COMMENT | Indicated | | [facility] | [...] [place]. | [address] | [place] | [phone] | | [facility] | | [address] | | | - LABORATORY | | [...]
--- OUTSIDE RECORDS SUMMARY | ~2019-01-15 | XMS | Encounter Summary ---
Demographics + + + | Address | [address] | | | [place] [address] | + + + | Home Phone [...] Providers + +------+ + | Care Manager Union Name | Role | Phone | + [...] + + | 11/11/ | Telephone | [facility] | Shashi Segovia | Results | | 2013 | | NEUROLOGY ADRIANA | MD Miryam Need updated | | | | | [address], | address | | | | | [address] [place] | | | | | | [place] [address] | | | | | | [phone] | | | +--------+ + + + [...] [place] | | | | | | [address] | | | | | | | | +--------+---------+ + + + | 11/24/ | Office | Cardiology | Flores, | | | 2019 | Visit | | SINDHU Erickson [address] | | | | | | [place], | | | | | | [place] [address] | | | | | | [phone] | | | | | | | | +--------+---------+ + + + documented as of this encounter Visit Diagnoses Not on filedocumented in this encounter"
--- OUTSIDE RECORDS SUMMARY | ~2019-01-15 | XMS | Encounter Summary ---
Demographics + + + | Address | [address] | | | [place] [address] | + + + | Home Phone [...] Team Providers + +------+ + | Care Pharmaceutical Engineer Name | Role | Phone | + +------+ + | Juan Cherry DO | PCP | | + +------+ + Encounter Details +--------+ + + + + | Date | Type | Department | Care Team | Description | +--------+ + + + + | 09/09/ | Hospital | [facility] | Conversion | Pain | | 2015 | Encounter | CONVERSION [address] | Transaction, | | | | | [address] | Provider Unknown | | | | | [place], [place] | [phone] | | | | | [address] | | | | | | [phone] | | | +--------+ + + + [...] | | | | order to [facility]. | | | | [...] | | send order to [facility] | | | | | | | [facility]. | | | | | [...] R Snow [facility] | | | | | | [address] | | | | | | | | +--------+---------+ + + + | 11/24/ | Office | Cardiology | Flores, | | | 2019 | Visit | | SINDHU Erickson [address] | | | | | | [place], | | | | | | [place] [address] | | | | | | [phone] | | | | | | | [...]
--- OUTSIDE RECORDS SUMMARY | ~2019-01-15 | XMS | Encounter Summary ---
Demographics + + + | Address | [address] | | | [place] [address] | + + + | Home Phone [...] Providers + +------+ + | Care Ground Mixer Name | Role | Phone | + +------+ + | Juan Cherry DO | PCP | | + +------+ + Encounter Details +--------+ + + + + | Date | Type | Department | Care Team | Description | +--------+ + + + + | 09/09/ | Hospital | [facility] | Conversion | Pain | | 2015 | Encounter | CONVERSION [address] | Transaction, | | | | | [address] | Provider Unknown | | | | | [place], [place] | [phone] | | | | | [address] | | | | | | [phone] | | | +--------+ + + + [...] | | | | Jose R Snow [facility] | | | | | | [address] | | | | | | | | +--------+---------+ + + + | 11/24/ | Office | Cardiology | Flores, | | | 2019 | Visit | | SINDHU Erickson [address] | | | | | | [place], | | | | | | [place] [address] | | | | | | [phone] | | | | | | | [...]
--- OUTSIDE RECORDS SUMMARY | ~2019-01-15 | XMS | Encounter Summary ---
Demographics + + + | Address | [address] | | | [place] [address] | + + + | Home Phone [...] Team Providers + +------+ + | Care Outside Cutter Name | Role | Phone | [...] + + | 08/30/ | Emergency | [facility] | [place], | Tachycardia (Primary | | 2018 | | [facility] | Ozzy Kim MD [address] | Dx); Hypokalemia | | | | CENTER [address] | [address] [place] | | | | | [place] | [place] [address] | | | | | [address] | [phone] | | | | | [phone] | | | +--------+ + + + [...] | | | | send order to [facility] | | | | | | | [facility]. | | | | | | | [...] [place] | | | | | | [address] | | | | | | | | +--------+---------+ + + + | 11/24/ | Office | Cardiology | Flores, | | | 2019 | Visit | | SINDHU Erickson [address] | | | | | | [place], | | | | | | [place] [address] | | | | | | [phone] | | | | | | | [...] W?MRN: | | | | | | [id number] | | | [id number] | | | his | | | [...] | | | icalte | | | [employer] | | | | +---+--------+ documented in this encounter Results Holter monitor - 48 hour (09/04/2017 10:18 AM PDT) + + + | Narrative | Performed At | + + + | Jared Mcdonough MD 09/04/2017 10:47 PATIENT NAME: | JUNE ALFORD | | Rosario Malik : 1965: AGE: 52 y.o. | | | PRIMARY CARE: Yong | | | DO CAMILLE Cherry SOCIAL MEDIA MANAGER: Jared Mcdonough MD | | | 48-HOUR [...] | | Signed by: Jared Mcdonough MD [facility] 09/04/2017, 10:18 | | + + [...] + | [facility] | [address] | [place] | [phone] | | [facility] | | [address] | | | - LABORATORY | | [...] | | | | | | [employer] | | | | | [...] + | [facility] | [address] | [place] | [phone] | | [facility] | | [address] | | | - LABORATORY | | [...] mL/min/1.73m2 | [facility] | | | HAITIAN | RATE,ESTIMATED | | MEDICAL | | | | mL/min/1.21h4Gtep than | | CENTER - | | [...] [address] | [place] | [phone] | | [facility] | | [address] | | | - LABORATORY | | [...] | | Basophils | | K/uL | [facility] | | | | | [...] [address] | [place] | [phone] | | [facility] | | [address] | | | - LABORATORY | | [...] | Top Tube | | | [facility] | | | | | [...] [address] | [place] | [phone] | | [facility] | | [address] | | | - LABORATORY | | [...] [address] | [place] | [phone] | | [facility] | | [address] | | | - LABORATORY | | [...] ST. | [address] | [place], [place] | [phone] | | [facility] | | [address] | | | - LABORATORY | | [...] [address] | [place] | [phone] | | [facility] | | [address] | | | - LABORATORY | | [...] + | [facility] | [address] | [place] | [phone] | | [facility] | | [address] | | | - LABORATORY | | [...] + | [facility] | [address] | [place] | [phone] | | [facility] | | [address] | | | - LABORATORY | | [...] | | | | | RAFA PAUL ([id number]) on | | | | | | [...]
--- OUTSIDE RECORDS SUMMARY | ~2019-01-15 | XMS | Encounter Summary ---
Demographics + + + | Address | [address] | | | [place] [address] | + + + | Home Phone [...] Team Providers + +------+ + | Care Banbury Mixer Operator Name | Role | Phone | [...] + + | 07/24/ | Clinical | [facility] | Andriy Weber | Bladder pain | | 2018 | Support | [address] | MD [address] | (Primary Dx) | | | | [place], [place] | THOM [facility] | | | | | [address] | [place] [address] | | | | | [phone] | [phone] | | | | | | | [...] and Dr. Weber's order. Patient remained in [facility] office for 20 minutes prior to voiding. [...] [place] | | | | | | [address] | | | | | | | | +--------+---------+ + + + | 11/24/ | Office | Cardiology | Flores, | | | 2019 | Visit | | Georgina, COMPOSING MACHINE OPERATOR [address] | | | | | | [place], | | | | | | [place] [address] | | | | | | [phone] | | | | | | | [...]
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
--- OUTSIDE RECORDS SUMMARY | ~2019-01-15 | XMS | Encounter Summary ---
Demographics + + + | Address | [address] | | | [place] [address] | + + + | Home Phone [...] + +------+ + | Care Call Center Trainer Name | Role | Phone | [...] Provider Unknown | | | | | [place], [place] | [phone] | | | | | [address] | | | | | | [phone] | | | +--------+ + + + [...] | | | | | order to [facility]. | | | | | + [...] | | | | | | | ([facility]) | | | | | [...] | | | | [address] R [place] [facility] | | | | | | [address] | | | | | | | | +--------+---------+ + + + | 11/24/ | Office | Cardiology | [place], | | | 2019 | Visit | | SINDHU Erickson [address] | | | | | | [place], | | | | | | [place] [address] | | | | | | [phone] | | | | | | | [...]
--- OUTSIDE RECORDS SUMMARY | ~2019-01-15 | XMS | Encounter Summary ---
Demographics + + + | Address | [address] | | | [place] [address] | + + + | Home Phone [...] Team Providers + +------+ + | Care Neon Technician Name | Role | Phone | [...] + + | 12/23/ | Office | [facility] | [place], | Palpitations; | | 2019 | Visit | CARDIOLOGY [address] | SINDHU Erickson [address] | Paroxysmal atrial | | | | [place], | [place], | tachycardia (HCC); | | | | [place] [address] | [place] [address] | Pericarditis, | | | | [phone] | [phone] | unspecified | | | | | [...] mg by mouth Daily. Respiratory Therapy Supplies [facility] Please provide patient with necessary CPAP supplies ( she did not specify, okay to send order as appropriate) Diagnosis Code(s)327.23 . Length of Need 99 months. Please send order to [facility]. 1 each 0 Respiratory Therapy Supplies [facility] Change CPAP back to 11-14 cm H2O. All necessary suppl ies. No oxygen bleed in. Diagnosis Code(s)327.23. Length of Need: Lifetime. Please send orde r to [facility]. This is not a new [...] reviewed during visit today primarily from [facility]: LIPID Lab Results Component Value Date [...] the HPI RESULTS- I reviewed reports from [facility]: Above data and testing is reviewed [...] and v entricular function done at the [facility]. LVEF 78%. C. Holter Monitor [...] She is in class I of the [place] [employer] sociation functional class. 2. Hypotensionsecondary [...] She was seen at the ED of [facility] 3 weeks ago and again [...] if not done prior by another provider. Lizy Vásquez, Lawn Mower Sharpener am acting as a scribe on behalf of, and in the presenc e of SINDHU Vang. - Lizy Nieto Lawn Mower Sharpener 12/23/2018 14:27 I, SINDHU Vang, personally performed the services described in this documentati on, as scribed in my presence and it is both accurate and complete. -SINDHU Vang 12/23/2018 Portions of this chart may have been created with [employer] voice recognition software. Occasi onal wrong-word or [...] [place] | | | | | | [address] | | | | | | | | +--------+---------+ + + + | 11/24/ | Office | Cardiology | [place], | | | 2019 | Visit | | SINDHU Erickson [address] | | | | | | [place], | | | | | | [place] [address] | | | | | | [phone] | | | | | | | [...] MD | | | | | | ([id number]) on 12/23/2018 | | | | | [...]
--- OUTSIDE RECORDS SUMMARY | ~2019-01-15 | XMS | Encounter Summary ---
Demographics + + + | Address | [address] | | | [place] [address] | + + + | Home Phone [...] Providers + +------+ + | Care Elementary Science Teacher Name | Role | Phone | [...] [address] | | | | | [place], | [place] | | | | | [place] [address] | [address] | | | | | [phone] | | | +--------+--------+ + + + [...] [place] | | | | | | [id number] | | | | | | | | +--------+---------+ + + + | 11/24/ | Office | Cardiology | [place], | | | 2019 | Visit | | SINDHU Erickson [address] | | | | | | [place] | | | | | | [place] [address] | | | | | | [phone] | | | | | | | | +--------+---------+ + + + documented as of this encounter Visit Diagnoses Not on filedocumented in this encounter"
--- OUTSIDE RECORDS SUMMARY | ~2019-01-15 | XMS | Encounter Summary ---
Demographics + + + | Address | [address] | | | [place] [address] | + + + | Home Phone [...] Providers + +------+ + | Care Editor Sound Name | Role | Phone | + [...] | | MD Jared | [address] | | | | | Pericarditis | [address] | [place], | | | | | Procedures | [address] | [place] | | | | | ECHO | [place], | [address] | | | | | Complete | [place] [address] | Phone: | | | | | | Phone: | [phone] | | | | | | [phone] | Fax: | | | | | | Fax: | [phone] | | | | | | [phone] | | +--------+--------+ + + + + [...] | | MD Jared | [address] | | | | | Pericarditis | [address] | [place], | | | | | Procedures | [address] | [place] | | | | | ECHO | [place], | [address] | | | | | Complete | [place] [address] | Phone: | | | | | | Phone: | [phone] | | | | | | [phone] | Fax: | | | | | | Fax: | [phone] | | | | | | [phone] | | +--------+--------+ + + + + Encounter Details +--------+ + + + + | Date | Type | Department | Care Team | Description | +--------+ + + + + | 01/14/ | Hospital | [facility] | Jared Mcdonough, | Pericarditis | | 2013 | Encounter | MED CTR ECHO [address] | [address] | | | | | [place] | [place], | | | | | [place] [address] | [place] [address] | | | | | [phone] | [phone] | | | | | | | [...] | | | | | | [place] [address] | | | | | | [phone] | | | | | | | [...] Performed At | + + + | [facility] | [place] | | STUDY DATE: 01/14/2014 PATIENT NAME: Rosario Malik | [facility] | | : 1965 PCP: Juan Cherry, [facility] | | CLINICAL HISTORY/DIAGNOSIS: Pericarditis/pericardial effusion A [...] by: | | | Jared Mcdonough MD [facility] 01/14/2014 8:40 Investigation Specialist: | | | Charmaine Ibarra RDMS | | + + + + + | Procedure Note | + + | Jared Mcdonough MD - 01/14/2014 11:28 AM [facility] | | CENTERECHOCARDIOGRAM REPORTSTUDY DATE: 01/14/2014PATIENT NAME: Rosario AyersOB: | | 1965MRN: [id number]: EFREN GuillaumeLINICAL HISTORY/DIAGNOSIS: | | Pericarditis/pericardial effusionA [...] | mmHgLA volume: 30 mLLA index: 18 mL/s1Rrurih Inflow DT: 262 msIVRT: 75 msValsalva: | | NegativePWDTI S wave: 8.7 cm/sPWDTI E wave: 9.0 cm/sPWDTI A wave: 11.5 cm/sE/A Ratio: | | 0.783E/E Ratio: 8.95Signed by: Jared Mcdonough MD [facility] 01/14/2014 8:40 | | Investigation Specialist: Charmaine Ibarra RDMS | | | | [...] | | |Signed by: Jared Mcdonough MD [facility] | | 01/14/2014 8:40 | | | | | |Investigation Specialist: Charmaine Ibarra RDMS | + + + + + + + | Performing | Address | City/State/Zipcode | Phone Number | | Organization | | | | + + + + + | [facility] | [address] | [place] | [phone] | | [facility] | | [address] | | | - IMAGING | | [...]
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
--- OUTSIDE RECORDS SUMMARY | ~2019-01-15 | XMS | Encounter Summary ---
Demographics + + + | Address | [address] | | | [place] [address] | + + + | Home Phone [...] Team Providers + +------+ + | Care Research/Program Director Name | Role | Phone | [...] | Concussion | Aaron Kim MD | Senior Quality Control Technician [address] | | | Required | | with brief | [address] | [place] | | | | | loss of | [address] | [place], [place] | | | | | consciousnes | [place], | [address] | | | | | s Word | [place] [address] | Phone: | | | | | finding | Phone: | [phone] | | | | | difficulty | [phone] | Fax: | | | | | [id number] | Fax: | [phone] | | | | | (ICD-10-CM) | [phone] | | | | | | - [...] + + | 06/20/ | Hospital | [facility] | Aaron Rodriguez, | Impaired memory | | 2017 | Encounter | MED CTR SPEECH | MD [address] | (Primary Dx); | | | | THERAPY [address] | [place] | Concussion with | | | | [place], | [address] | brief (less than one | | | | [place] [address] | | hour) loss of | | | | [phone] | Kathi Soto, | consciousness; | | [...] | | | | | order to [facility]. | | | | | + [...] | | | | send order to [facility] | | | | [...] | 0 | 10/13/19 | | | Sthvzowogj-EEAY-Ccxe | mouth as needed. | | | 16 | 7 | | -Cod [id number] MG | | | | | | [...] Speech Pathologist - 06/21/2016 1:45 PM PDT [facility] [address] [facility] [address] Speech Therapy Daily Treatment Note Date: 06/20/2016 [...] Visit from 05/01/2016 in [facility] THERAPY PT OP Rehab Precautions Precautions None Rehab Learning Style [facility] OP EVAL from 05/16/2016 in [facility] SPEECH THERAPY Office V isit from 05/01/2016 in [facility] THERAPY PT OP Learning Style Patient's Optimum [...] SPEECH PATHO, 06/21/2016 13:54 Patient Name: Rosario aMlik/: 1965/ docum ented in this encounter Plan [...] [place] | | | | | | [address] | | | | | | | | +--------+---------+ + + + | 11/24/ | Office | Cardiology | [place], | | | 2019 | Visit | | SINDHU Erickson [address] | | | | | | [place], | | | | | | [place] [address] | | | | | | [phone] | | | | | | | [...]
--- OUTSIDE RECORDS SUMMARY | ~2019-01-15 | XMS | Encounter Summary ---
Demographics + + + | Address | [address] | | | [place] [address] | + + + | Home Phone [...] Team Providers + +------+ + | Care Battalion Chief Name | Role | Phone | + +------+ + PCP | Unavailable | + +------+ + Encounter Details +--------+ + + + + | Date | Type | Department | Care Team | Description | +--------+ + + + + | 09/15/ | Hospital | [facility] | Rocky Rodriguez | | | 2010 | Encounter | MED CTR EMERGENCY | MD Kyler [address] | | | | | CENTER [address] | [address] [facility] | | | | | [place], [place] | [place] [address] | | | | | [address] | [phone] | | | | | [phone] | | | +--------+ + + + [...] [place] | | | | | | [address] | | | | | | | | +--------+---------+ + + + | 11/24/ | Office | Cardiology | Flores, | | | 2019 | Visit | | SINDHU Erickson [address] | | | | | | [place], | | | | | | [place] [address] | | | | | | [phone] | | | | | | | | +--------+---------+ + + + documented as of this encounter Visit Diagnoses Not on filedocumented in this encounter"
--- OUTSIDE RECORDS SUMMARY | ~2019-01-15 | XMS | Encounter Summary ---
Demographics + + + | Address | [address] | | | [place] [address] | + + + | Home Phone [...] Team Providers + +------+ + | Care Litigation Claim Representative Name | Role | Phone | [...] + + | 05/15/ | Office | [facility] | Offenstein, | GARRY (obstructive | | 2012 | Visit | PULMONARY [address] | Loreta Alonso MD | sleep apnea) | | | | [place], | | (Primary Dx); | | | | [place] [address] | | Central sleep apnea; | | | | [phone] | | Insomnia; COPD | | | [...] will send a corrected CPAP order to [facility]. 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 Clarification for order from [...] made to ensure accuracy; however, inadvertent computerized successfactors consultant errors may be pre sent. documented in [...] [place] | | | | | | [address] | | | | | | | | +--------+---------+ + + + | 11/24/ | Office | Cardiology | Flores, | | | 2019 | Visit | | SINDHU Erickson [address] | | | | | | [place] | | | | | | [place] [address] | | | | | | [phone] | | | | | | | [...]
--- OUTSIDE RECORDS SUMMARY | ~2019-01-15 | XMS | Encounter Summary ---
Demographics + + + | Address | [address] | | | [place] [address] | + + + | Home Phone [...] Team Providers + +------+ + | Care Certifed Refrigeration Operator Name | Role | Phone | [...] | 06/27/ | Telephone | [facility] | Weber, Andriy | Other | | 2018 | | [address] | MD [address] | | | | | [address] | THOM [facility] | | | | | [address] | [place] [address] | | | | | [phone] | [phone] | | | | | | | [...] [place] | | | | | | [address] | | | | | | | | +--------+---------+ + + + | 11/24/ | Office | Cardiology | Flores, | | | 2019 | Visit | | SINDHU Erickson [address] | | | | | | [place] | | | | | | [place] [address] | | | | | | [phone] | | | | | | | | +--------+---------+ + + + documented as of this encounter Visit Diagnoses Not on filedocumented in this encounter"
--- OUTSIDE RECORDS SUMMARY | ~2019-01-15 | XMS | Encounter Summary ---
Demographics + + + | Address | [address] | | | [place] [address] | + + + | Home Phone [...] Providers + +------+ + | Care Machine Tool Technology Instructor Name | Role | Phone | + +------+ + | Juan Cherry DO | PCP | | + +------+ + Reason for Visit + + + | Reason | Comments | + + + | Appointment | Needing to schedule DMSO treatments | + + + Encounter Details +--------+ + + + + | Date | Type | Department | Care Team | Description | +--------+ + + + + | 10/05/ | Telephone | [facility] | Andriy Weber | Appointment (Needing | | 2015 | | [address] | MD Robert [address] | to schedule DMSO | | | | [place] | [place] | treatments) | | | | [address] | [place] [address] | | | | | [phone] | [phone] | | | | | | | [...] [place] | | | | | | [id number] | | | | | | | | +--------+---------+ + + + | 11/24/ | Office | Cardiology | Flores, | | | 2019 | Visit | | SINDHU Erickson [address] | | | | | | [place] | | | | | | [place] [address] | | | | | | [phone] | | | | | | | | +--------+---------+ + + + documented as of this encounter Visit Diagnoses Not on filedocumented in this encounter"
--- OUTSIDE RECORDS SUMMARY | ~2019-01-15 | XMS | Encounter Summary ---
Demographics + + + | Address | [address] | | | [place] [address] | + + + | Home Phone [...] Team Providers + +------+ + | Care Pc Support Specialist Name | Role | Phone [...] Pituitary | Shashi [place], | [address] | | | | | adenoma | MD Need | [place], | | | | | ([facility]) | updated | [place] | | | | | Procedures | address | [address] | | | | | MRI Brain w | | Phone: | | | | | wo Contrast | | [phone] | | | | | | | Fax: | | | | | | | [phone] | +--------+--------+ + + + + Reason [...] Pituitary | Shashi [place], | [address] | | | | | adenoma | MD Need | [place], | | | | | ([facility]) | updated | [place] | | | | | Procedures | address | [address] | | | | | MRI Brain w | | Phone: | | | | | wo Contrast | | [phone] | | | | | | | Fax: | | | | | | | [phone] | +--------+--------+ + + + + Encounter Details +--------+ + + + + | Date | Type | Department | Care Team | Description | +--------+ + + + + | 06/02/ | Hospital | [facility] | Shashi Segovia | Pituitary adenoma | | 2014 | Encounter | MED CTR MRI [address] [place] MD Need updated | ([facility]) | | | | [place], | address | | | | | [place] [address] | | | | | | [phone] | | | +--------+ + + + [...] [place] | | | | | | [address] | | | | | | | | +--------+---------+ + + + | 11/24/ | Office | Cardiology | Flores, | | | 2019 | Visit | | SINDHU Erickson [address] | | | | | | [place], | | | | | | [place] [address] | | | | | | [phone] | | | | | | | [...] of 10 mL of Gadavist. Dedicated small nislt-fq-gofj | | | thin section imaging through [...] 10 mL ofGadavist. | | Dedicated small uttzk-sc-dchu thin section imaging through thepituitary region before [...] + + | Performing | Address | City/State/[facility] | Phone Number | | Organization | | | | + + + + + | [address] | [address] | [place] | [phone] | | [facility] | | [address] | | | - IMAGING | | [...]
--- OUTSIDE RECORDS SUMMARY | ~2019-01-15 | XMS | Encounter Summary ---
Demographics + + + | Address | [address] | | | [place] [address] | + + + | Home Phone [...] Team Providers + +------+ + | Care Managed Care Provider Name | Role | Phone | + [...] + + | 06/17/ | Telephone | [facility] | Flores, | Other | | 2018 | | CARDIOLOGY [address] | Georgina RHIT [address] | | | | | [place], | [place], | | | | | [place] [address] | [place] [address] | | | | | [phone] | [phone] | | | | | | | [...] [place] | | | | | | [address] | | | | | | | | +--------+---------+ + + + | 11/24/ | Office | Cardiology | Flores, | | | 2019 | Visit | | SINDHU Erickson [address] | | | | | | [place], | | | | | | [place] [address] | | | | | | [phone] | | | | | | | [...]
--- OUTSIDE RECORDS SUMMARY | ~2019-01-15 | XMS | Encounter Summary ---
Demographics + + + | Address | [address] | | | [place] [address] | + + + | Home Phone [...] Team Providers + +------+ + | Care Hospital Cleaning Specialist Name | Role | Phone | [...] + + | 01/20/ | Emergency | [facility] | Nestor Martinez, | COPD exacerbation | | 2013 - | | MED CTR EMERGENCY | MD [address] | ([facility]) (Primary Dx) | | | | [place] [address] | [place], [place] | | | 01/21/ | | [place], [place] | [address] | | | 2013 | | [address] | | | | | | [phone] | | | +--------+ + + + [...] | | | [facility]. | | | | | [...] [place] | | | | | | [address] | | | | | | | | +--------+---------+ + + + | 11/24/ | Office | Cardiology | Flores, | | | 2019 | Visit | | SINDHU Erickson [address] | | | | | | [place], | | | | | | [place] [address] | | | | | | [phone] | | | | | | | [...] + | MISCELLANEOUS LAB | | | [phone] | + +---------+ + + | MISCELANIOUS LAB | | | [phone] | + +---------+ + + documented in [...]
--- OUTSIDE RECORDS SUMMARY | ~2019-01-15 | XMS | Encounter Summary ---
Demographics + + + | Address | [address] | | | [place] [address] | + + + | Home Phone [...] Providers + +------+ + | Care Chief Mate Name | Role | Phone | + [...] [address] | | | | | [place] | THOM [facility] | | | | | [address] | [place] [address] | | | | | [phone] | [phone] | | | | | | | [...] [place] | | | | | | [address] | | | | | | | | +--------+---------+ + + + | 11/24/ | Office | Cardiology | Flores, | | | 2019 | Visit | | SINDHU Erickson [address] | | | | | | [place] | | | | | | [place] [address] | | | | | | [phone] | | | | | | | | +--------+---------+ + + + documented as of this encounter Visit Diagnoses Not on filedocumented in this encounter"
--- OUTSIDE RECORDS SUMMARY | ~2019-01-15 | XMS | Encounter Summary ---
Demographics + + + | Address | [address] | | | [place] [address] | + + + | Home Phone [...] Providers + +------+ + | Care Chemical Treatment Plant Technician Name | Role | Phone | + +------+ + | Juan Cherry DO | PCP | | + +------+ + Encounter Details +--------+---------+ + + + | Date | Type | Department | Care Team | Description | +--------+---------+ + + + | 10/31/ | Office | [facility] | Andriy Weber | Interstitial | | 2016 | Visit | [address] | MD [address] | cystitis (Primary | | | | [place], [place] | [address] [place] | Dx) | | | | [address] | [place] [address] | | | | | [phone] | [phone] | | | | | | | [...] have not thoroughly proofread this note, and wood and wood products labourer err ors may occur. documented in th is encounter Plan of Treatment +--------+---------+ + + + | Date | Type | Specialty | Care Team | Description | +--------+---------+ + + + | 03/01/ | Office | Pulmonology | Mukul Clark MD | | | 2019 | Visit | | [address] | | | | | | [place], [place] | | | | | | [address] | | | | | | | | +--------+---------+ + + + | 11/24/ | Office | Cardiology | Flores, | | | 2019 | Visit | | SINDHU Erickson [address] | | | | | | [place], | | | | | | [place] [address] | | | | | | [phone] | | | | | | | | +--------+---------+ + + + documented as of this encounter Visit Diagnoses + + | Diagnosis | + + | Interstitial cystitis - Primary Chronic interstitial cystitis | + + documented in this encounter"
--- OUTSIDE RECORDS SUMMARY | ~2019-01-15 | XMS | Encounter Summary ---
Demographics + + + | Address | [address] | | | [place] [address] | + + + | Home Phone [...] Team Providers + +------+ + | Care Derrick Helper Name | Role | Phone | + +------+ + | Juan Cherry DO | PCP | | + +------+ + Encounter Details +--------+---------+ + + + | Date | Type | Department | Care Team | Description | +--------+---------+ + + + | 10/22/ | Office | [facility] | Jared Mcdonough, | Chronic obstructive | | 2017 | Visit | MED CTR CARDIAC | [address] | pulmonary disease, | | | | REHABILITATION [address] [place], | unspecified COPD | | | | [address] [place] | [place] [address] | type (HCC) (Primary | | | | [place] [address] | [phone] | Dx); Mild persistent | | | | [phone] | | asthma without | | | [...] | | | | | | [place] [address] | | | | | | [phone] | | | | | | | [...]
--- OUTSIDE RECORDS SUMMARY | ~2019-01-15 | XMS | Encounter Summary ---
Demographics + + + | Address | [address] | | | [place] [address] | + + + | Home Phone [...] Team Providers + +------+ + | Care Acupuncture Physician Name | Role | Phone | + +------+ + PCP | Unavailable | + +------+ + Encounter Details +--------+ + + + + | Date | Type | Department | Care Team | Description | +--------+ + + + + | 11/27/ | Hospital | [facility] | Ozzy Delcid, | | | 2009 | Encounter | MED CTR LABORATORY | MD [address] | | | | | [address] [place] | [place], [place] | | | | | [place], [place] | [address] | | | | | [address] | | | | | | [phone] | | | +--------+ + + + [...] [place] | | | | | | [address] | | | | | | | | +--------+---------+ + + + | 11/24/ | Office | Cardiology | Flores, | | | 2019 | Visit | | SINDHU Erickson [address] | | | | | | [place] | | | | | | [place] [address] | | | | | | [phone] | | | | | | | | +--------+---------+ + + + documented as of this encounter Visit Diagnoses Not on filedocumented in this encounter"
--- OUTSIDE RECORDS SUMMARY | ~2019-01-15 | XMS | Encounter Summary ---
Demographics + + + | Address | [address] | | | [place] [address] | + + + | Home Phone [...] Providers + +------+ + | Care Transit Vehicle Inspector Name | Role | Phone | + +------+ + PCP | Unavailable | + +------+ + Encounter Details +--------+ + + + + | Date | Type | Department | Care Team | Description | +--------+ + + + + | 01/29/ | Hospital | [facility] | Ozzy Delcid, | | | 2009 - | Encounter | MED CTR OP REHAB | MD [address] | | | | | [address] [place] | [place] | | | 02/23/ | | [place] [address] | [address] | | | 2009 | | [phone] | | | +--------+ + + + [...] [place] | | | | | | [address] | | | | | | | | +--------+---------+ + + + | 11/24/ | Office | Cardiology | Flores, | | | 2019 | Visit | | SINDHU Erickson [address] | | | | | | [place], | | | | | | [place] [address] | | | | | | [phone] | | | | | | | | +--------+---------+ + + + documented as of this encounter Visit Diagnoses Not on filedocumented in this encounter"
--- OUTSIDE RECORDS SUMMARY | ~2019-01-15 | XMS | Encounter Summary ---
Demographics + + + | Address | [address] | | | [place] [address] | + + + | Home Phone [...] Providers + +------+ + | Care Warehouse Order Selector Name | Role | Phone | [...] + + | 03/22/ | Office | [facility] [place] | Offenstein, | COPD exacerbation | | 2013 | Visit | PULMONARY [address] | Loreta Alonso MD | ([facility]) (Primary Dx); | | | | [place], | | Complex sleep apnea | | | | [place] [address] | | syndrome | | | | [phone] | | | +--------+---------+ + + + [...] MD Ayaka Rasheed Pulmonary and Critical Care [facility] [address] [place], [address] HPI Rosario Malik is a 48 y.o. 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 Please send orde r to [facility]. This is not a new order, just [...] made to ensure accuracy; however, inadvertent computerized fiscal agent errors may be pre sent. documented [...] | | | | | | [place] [address] | | | | | | [phone] | | | | | | | | +--------+---------+ + + + documented as of this encounter Visit Diagnoses + + | Diagnosis | + + | COPD exacerbation (HCC) - Primary Obstructive chronic bronchitis with exacerbation | + + | Complex sleep apnea syndrome Unspecified sleep apnea | + + documented in this encounter
--- OUTSIDE RECORDS SUMMARY | ~2019-01-15 | XMS | Encounter Summary ---
Demographics + + + | Address | [address] | | | [place] [address] | + + + | Home Phone [...] Providers + +------+ + | Care Community Relations Advisor Name | Role | Phone | [...] + + | 11/06/ | Office | [facility] | Hilbert, | Palpitations | | 2017 | Visit | CARDIOLOGY [address] | SINDHU Erickson [address] | (Primary Dx); | | | | [place], | [place], | Paroxysmal atrial | | | | [place] [address] | [place] [address] | tachycardia (HCC); | | | | [phone] | [phone] | Chest pain, | | | | [...] takes this da rigoberto Respiratory Therapy Supplies [facility] Please provide patient with necessary CPAP supplies ( she did not specify, okay to send order as appropriate) Diagnosis Code(s)327.23 . Length of Need 99 months. Please send order to [facility]. [address] each [address] [facility] Change CPAP back [...] has shortened Confirmed by CLAY SANCHEZ MD ([id number]) on 10/16/2016 4:31:30 PM LAB RESULTS reviewed during visit today primarily from [facility]: LIPID Lab Results Component Value Date [...] PLTEX 370 07/11/2014 I reviewed records from [facility] for Holter report on 10/18/2016 which [...] of [facility] 3 weeks ago and again 1 [...] She is in a class II of [place] [employer] functional class. There is no [...] and v entricular function done at the [facility]. LVEF [...] this chart may have been created with [employer] voice recognition software. Occasi onal wrong-word or [...] | | | | [place] | | | | | | [address] | | | | | | | | +--------+---------+ + + + | 11/24/ | Office | Cardiology | Flores, | | | 2019 | Visit | | SINDHU Erickson [address] | | | | | | [place], | | | | | | [place] [address] | | | | | | [phone] | | | | | | | [...]
--- OUTSIDE RECORDS SUMMARY | ~2019-01-15 | XMS | Encounter Summary ---
Demographics + + + | Address | [address] | | | [place] [address] | + + + | Home Phone [...] Providers + +------+ + | Care Pharmacy Analyst Name | Role | Phone | [...] + | 02/09/ | Telephone | [facility] | Jaime Kevin, | Other | | 2013 | | PULMONARY [address] | MD [address] | | | | | [place], | [place], [place] | | | | | [place] [address] | [address] | | | | | [phone] | | | +--------+ + + + [...] | | | | | | [place] [address] | | | | | | [phone] | | | | | | | | +--------+---------+ + + + documented as of this encounter Visit Diagnoses Not on filedocumented in this encounter"
--- OUTSIDE RECORDS SUMMARY | ~2019-01-15 | XMS | Encounter Summary ---
Demographics + + + | Address | [address] | | | [place] [address] | + + + | Home Phone [...] + +------+ + | Care Screw Machine Tool Setter Name | Role | Phone | [...] | | | | CENTER [address] | | carried out because | | | | [place] | | of patient's | | | | [address] | | decision (Primary | | | | [phone] | | Dx) | +--------+ + + [...] | | | | | | | [facility]. | | | | [...] [place] | | | | | | [id number] | | | | | | | | +--------+---------+ + + + | 11/24/ | Office | Cardiology | Flores, | | | 2019 | Visit | | SINDHU Erickson [address] | | | | | | [place] | | | | | | [place] [address] | | | | | | [phone] | | | | | | | | +--------+---------+ + + + documented as of this encounter Visit Diagnoses + + | Diagnosis | + + | Surgical or other procedure not carried out because of patient's decision - Primary | + + documented in this encounter"
--- OUTSIDE RECORDS SUMMARY | ~2019-01-15 | XMS | Encounter Summary ---
Demographics + + + | Address | [address] | | | [place] [address] | + + + | Home Phone [...] Providers + +------+ + | Care Production Support Specialist Name | Role | Phone [...] + + | 07/24/ | Office | [facility] | [place], | Palpitations | | 2018 | Visit | CARDIOLOGY [address] | SINDHU Erickson [address] | (Primary Dx); | | | | [place], | [place], | Paroxysmal atrial | | | | [place] [address] | [place] [address] | tachycardia (HCC); | | | | [phone] | [phone] | Other migraine | | | | [...] takes this da rigoberto Respiratory Therapy Supplies [facility] Please provide patient with necessary CPAP supplies ( she did not specify, okay to send order as appropriate) Diagnosis Code(s)327.23 . Length of Need 99 months. Please send order to [facility]. 1 each 0 Respiratory Therapy Supplies [facility] Change CPAP back to 11-14 cm H2O. All necessary suppl ies. No oxygen bleed in. Diagnosis Code(s)327.23. Length of Need: Lifetime. Please send orde r to [facility]. This is not a new order, [...] has lengthened Confirmed by CLAY MCDONOUGH MD ([id number]) on 05/06/2017 4:53:06 PM LAB RESULTS reviewed during visit today primarily from [facility]: LIPID Lab Results Component Value Date [...] 417 (A) 03/18/2017 I reviewed records from [facility] for office visit on 04/2017 whic [...] and v entricular function done at the [facility]. LVEF 78%. C. Holter Monitor [...] She is in class II of the [place] [employer] functional class. There are no [...] She was seen at the ED of [facility] 3 weeks ago and again [...] is in a class I-II o f [employer] [employer] functional class. There is no [...] this chart may have been created with [employer] voice recognition software. Occasi onal wrong-word [...] [place] | | | | | | [address] | | | | | | | | +--------+---------+ + + + | 11/24/ | Office | Cardiology | Flores, | | | 2019 | Visit | | SINDHU Erickson [address] | | | | | | [place] | | | | | | [place] [address] | | | | | | [phone] | | | | | | | [...]
--- OUTSIDE RECORDS SUMMARY | ~2019-01-15 | XMS | Encounter Summary ---
Demographics + + + | Address | [address] | | | [place] [address] | + + + | Home Phone [...] Team Providers + +------+ + | Care Slat Basket Maker Helper Machine Name | Role | Phone | [...] W | Loreta Alonso MD | ([facility]) (Primary Dx); | | | | [place], | | GARRY (obstructive | | | | [place] [address] | | sleep apnea); | | | | [phone] | | Central sleep apnea; | | [...] Instructions Patient Instructions Loreta London MD - 01/25/2013 9:30 AM PSTYou [...] MD Ayaka Rasheed Pulmonary and Critical Care [facility] [address] [place], [address] HPI Rosario Malik is a 48 y.o. [...] left her on the Spiriva (started in [place]), and continued Adva ir. I had stop [...] cysts, not cancer Colonoscopy 03/2010 Colonoscopy 1995 [facility] Social History: History Social History Marital Status: Single Spouse Name: N/A Number of Children: 1 Years of Education: 13 Occupational History [employer] Home Social History Main Topics Smoking status: [...] 30 tablet 0 Respiratory Therapy Supplies MISC Please provide patient with necessary CPAP supplies ( she did not specify, okay to send order as appropriate) Diagnosis Code(s)327.23 . Length of Need 99 months. Please send order to [facility]. 1 each 0 Respiratory Therapy Supplies MISC Change CPAP back to 11-14 cm H2O. All necessary suppl ies. No oxygen bleed in. Diagnosis Code(s)327.23. Length of Need: Lifetime. Please send orde r to [facility]. This is not a new [...] Data: CPAP Data: Dates: 09/29/12-12/27/12 Machine type: ROVOP auto CPAP Home Health Company: [employer] CPAP Pressure: 11-14 cmH2O Median Titrated Pressure: 11.6 cmH2O 95%tile Pressure: 13.7 cmH2O Maximum Pressure: 13.9 cmH2O AHI: 2.4 events/hour Total number of days: 90 Number of days used: 80 Median daily usage: 4:27 hours Percent of days used for more than 4 hours: 48 % Median leak: 0.0 L/min Records from [place] ER visits and clinic visits are reviewed. It is noted that she did ac tually go off of her medications for a period of time when she moved. Immunization History Administered Date(s) Administered INFLUENZA, >= 4YO W/PRESERVATIVE IM 12/12/2010 INFLUENZA, PRESERVATIVE FREE IM 12/13/2011, 11/27/2012 Pneumococcal (Adult) 02/24/2011 Tdap 01/22/2008 Assessment 1. COPD exacerbation - On prednisone. Poor medication compliance, here and in [place]. We have ordered her Spiriva. I told [...] made to ensure accuracy; however, inadvertent computerized 2nd grade teacher errors may be pre sent. documented in [...] W | | | | | | [place], | | | | | | [place] [address] | | | | | | [phone] | | | | | | | [...]
--- OUTSIDE RECORDS SUMMARY | ~2019-01-15 | XMS | Encounter Summary ---
Demographics + + + | Address | [address] | | | [place] [address] | + + + | Home Phone [...] Team Providers + +------+ + | Care Pressure Testing Technician Name | Role | Phone | [...] | | | | | pulmonary | [address] | [address] | | | | | disease, | [place], | [place] | | | | | unspecified | [place] [address] | [place], [place] | | | | | COPD type | Phone: | [address] | | | | | (HCC) | [phone] | Phone: | | | | | Pulmonary | Fax: | [phone] | | | | | emphysema, | [phone] | Fax: | | | | | unspecified | | [phone] | | | | | emphysema | | | | | | | type ([facility]) | | | +--------+ + + + + + Encounter Details +--------+---------+ + + + | Date | Type | Department | Care Team | Description | +--------+---------+ + + + | 05/23/ | Office | [facility] | Sharonda Delmycaitie, | Chronic obstructive | | 2017 | Visit | MED CTR CARDIAC | [address] | pulmonary disease, | | | | REHABILITATION [address] | [place], | unspecified COPD | | | | [address] [place] | [place] [address] | type (HCC) (Primary | | | | [place] [address] | [phone] | Dx) | | | | [phone] | | | +--------+---------+ + + + [...] Desean Wheeler - 05/23/2016 3:07 PM PDT [facility] CARDIAC REHABILITATION [address] [place] [address] Cardiac Rehab Date: 05/23/2016 Patient Information Patient [...] HOPPER | | | | | | [id number] | | | | | | | | +--------+---------+ + + + | 11/24/ | Office | Cardiology | [place], | | | 2019 | Visit | | SINDHU Erickson [address] | | | | | | [place], | | | | | | [place] [address] | | | | | | [phone] | | | | | | | | +--------+---------+ + + + documented as of this encounter Visit Diagnoses + + | Diagnosis | + + | Chronic obstructive pulmonary disease, unspecified COPD type (HCC) - Primary | + + documented in this encounter"
--- OUTSIDE RECORDS SUMMARY | ~2019-01-15 | XMS | Encounter Summary ---
Demographics + + + | Address | [address] | | | [place] [address] | + + + | Home Phone [...] Providers + +------+ + | Care Customer Response Representative Name | Role | Phone | [...] | Concussion | Aaron Kim MD | Campus Administrator [address] | | | Required | | with brief | [address] | [place] | | | | | loss of | [address] | [place], [place] | | | | | consciousnes | [place], | [address] | | | | | s [place] | [place] [address] | Phone: | | | | | finding | Phone: | [phone] | | | | | difficulty | [phone] | Fax: | | | | | S06.0X9A | Fax: | [phone] | | | | | (ICD-10-CM) | [phone] | | | | | | - [...] + + | 09/17/ | Hospital | [facility] | Aaron Rodriguez, | Word finding | | 2017 | Encounter | MED CTR SPEECH | MD [address] [facility] | difficulty (Primary | | | | THERAPY [address] | [place] | Dx); Impaired | | | | [place], | [address] | memory; Concussion | | | | [place] [address] | | with brief (less | | | | [phone] | Kathi Soto, | than one hour) [...] | | | | | order to [facility]. | | | | | + [...] | 0 | 10/13/19 | | | Crtzjdocca-DIZM-Zymj | mouth as needed. | | | 16 | 7 | | -Cod [id number] MG | | | | | | [...] Speech Pathologist - 09/19/2016 2:57 PM PDT [facility] SPEECH THERAPY [address] [place] [address] Speech Therapy Discharge Note Date: 09/17/2016 Patient Information Patient Name: Rosario Malik Date of : 1965 Age: 51 y.o. History Encounter Diagnoses Code Name Primary? R47.89 Word finding difficulty Yes R41.3 Impaired memory S06.0X9A Concussion with brief (less than one hour) loss of consciousness Date of Onset: 03/15/2016 Referring Provider: Aaron Rodriguez MD Rehab Precautions Flowsheet Row Office Visit from 05/01/2016 in [facility] THERAPY PT OP Rehab Precautions Precautions None Rehab Learning Style Flowsheet Row [facility] PLASTIC PARTS DESIGNER OP EVAL from 05/16/2016 in [facility] SPEECH THERAPY O ffice Visit from 05/01/2016 in [facility] THERAPY PT OP Learning Style Patient's Optimum [...] re: these concerns. did provide resources [facility]. At this time Rosario stat es that [...] Patient Caregiver's Ability to Manage Condition: 4 PLASTIC PARTS DESIGNER G-Codes Functional Assessment Tool Used: NOMS Score: 5 - The individual consistently requires minimal cues to recall or use external dominique ry aids for complex and novel information. The individual consistently requires minimal cue s to plan and follow through on complex future events (e.g. menu planning and meal preparati on, planning a alliance party, etc.). Functional Limitations: Memory Memory Current [...] From: 08/16/2016 Certification To: 09/19/16 Treatment Plan/Interventions 94920 - Cognitive [id number] - Cognitive [id number] - Speech/Hearing Treatment Patient and/or family has [...] | | | | | [facility] [place] | | | | | | [address] | | | | | | | | +--------+---------+ + + + | 11/24/ | Office | Cardiology | [place], | | | 2019 | Visit | | SINDHU Erickson [address] | | | | | | [place], | | | | | | [place] [address] | | | | | | [phone] | | | | | | | [...]
--- OUTSIDE RECORDS SUMMARY | ~2019-01-15 | XMS | Encounter Summary ---
Demographics + + + | Address | [address] | | | [place] [address] | + + + | Home Phone [...] Providers + +------+ + | Care Geophysical Prospecting Surveyor Name | Role | Phone | + [...] | RN | | | | | [place], | | | | | | [place] [address] | | | | | | [phone] | | | +--------+ + + + [...] | | | | [place] | | | | | | [address] | | | | | | | | +--------+---------+ + + + | 11/24/ | Office | Cardiology | [place], | | | 2019 | Visit | | SINDHU Erickson [address] | | | | | | [place], | | | | | | [place] [address] | | | | | | [phone] | | | | | | | | +--------+---------+ + + + documented as of this encounter Visit Diagnoses Not on filedocumented in this encounter"
--- OUTSIDE RECORDS SUMMARY | ~2019-01-15 | XMS | Encounter Summary ---
Demographics + + + | Address | [address] | | | [place] [address] | + + + | Home Phone [...] Team Providers + +------+ + | Care Buckram Sewer Name | Role | Phone | [...] + + | 07/27/ | Office | [facility] | Brian Miranda | Sprain of chest | | 2013 | Visit | [facility] | MD [address] | abigail garcia | | | | [place] [address] | [facility] [facility] | encounter (Primary | | | | [address] [facility] | [place] [address] | Dx); Place of | | | | [place], [place] | [phone] | occurrence, | | | | [address] | | industrial places | | | | [phone] | | and premises | +--------+---------+ + [...] Date of injury: 04/05/13 [place]: [id number] Chief complaint: chest wall sprain, closing evaluation [...] well over a month ago from the business analytics manager for the department of labors and in [employer] requesting information regarding claims management and patient's condition, that form is completed today and this does represent a closing evaluation on this individual. No rose nges in background medical information of. Past medical history, medications, allergies reviewed Review of systems: As per HPI Objective: Vital signs as noted, nursing notes reviewed. Tqngcfs-oxeb-rlflkraop, well-nourished, in no apparent distress, pleasant cooperative. [...] [place] | | | | | | [id number] | | | | | | | | +--------+---------+ + + + | 11/24/ | Office | Cardiology | [place], | | | 2019 | Visit | | SINDHU Erickson [address] | | | | | | [place] | | | | | | [place] [address] | | | | | | [phone] | | | | | | | | +--------+---------+ + + + documented as of this encounter Visit Diagnoses + + | Diagnosis | + + | Sprain of chest wall, subsequent encounter - Primary | + + | Place of occurrence, industrial places and premises | + + documented in this encounter
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
--- OUTSIDE RECORDS SUMMARY | ~2019-01-15 | XMS | Encounter Summary ---
Demographics + + + | Address | [address] | | | [place] [address] | + + + | Home Phone [...] Providers + +------+ + | Care Retail Parts Pro Name | Role | Phone | + [...] [address] | | | | | [place], | [place], | | | | | [place] [address] | [place] [address] | | | | | [phone] | [phone] | | | | | | | [...] | | | | | | [place] [address] | | | | | | [phone] | | | | | | | | +--------+---------+ + + + documented as of this encounter Visit Diagnoses Not on filedocumented in this encounter"
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
--- OUTSIDE RECORDS SUMMARY | ~2019-01-15 | XMS | Encounter Summary ---
Demographics + + + | Address | [address] | | | [place] [address] | + + + | Home Phone [...] Team Providers + +------+ + | Care Platform Loader Name | Role | Phone | [...] | | n | Place of | [address] | [place], | | | | | occurrence, | [place] | [place] [address] | | | | | industrial | [place], [place] | Phone: | | | | | places and | [address] | [phone] | | | | | premises | Phone: | Fax: | | | | | | [phone] | [phone] | | | | | | Fax: | | | | | | | [phone] | | +--------+ + + + + [...] + + | 04/30/ | Office | [facility] | Brian Miranda | Sprain of chest wall | | 2014 | Visit | OCCUPATIONAL HEALTH | MD [address] | (Primary Dx); Place | | | | [place] [address] | [address] [facility] | of occurrence, | | | | [address] [place] | [place] [address] | industrial places | | | | [facility], [place] | [phone] | and premises | | | | [address] | | | | | | [phone] | | | +--------+---------+ + + + [...] - 04/30/2013 6:41 PM PSTClaim [place]: [id number] Date of injury: 04/05/13 Employer:[employer] Guarantor: [employer] Complaint: Chest wall sprain, scheduled followup Subjective: [...] danced imaging studies, and I don't b tesse those are present at this time. After [...] more easily, while she goes to the [employer] process. She'll continue on work restrictions followup in 4 weeks' period of time. Employment: Modified duty Restrictions: 10 pound lifting, no exertional pushing or pulling. Impairment undetermined. Unlikely based on current objective findings, she's not yet MMI status for the above reaso ns. documented in this encounter Plan of Treatment +--------+---------+ + + + | Date | Type | Specialty | Care Team | Description | +--------+---------+ + + + | 03/01/ | Office | Pulmonology | Mukul Clark MD | | | 2019 | Visit | | [address] | | | | | | [place], [place] | | | | | | [address] | | | | | | | | +--------+---------+ + + + | 11/24/ | Office | Cardiology | [place], | | | 2019 | Visit | | SINDHU Erickson [address] | | | | | | [place], | | | | | | [place] [address] | | | | | | [phone] | | | | | | | [...]
--- OUTSIDE RECORDS SUMMARY | ~2019-01-15 | XMS | Encounter Summary ---
Demographics + + + | Address | [address] | | | [place] [address] | + + + | Home Phone [...] Team Providers + +------+ + | Care Major League Baseball Player Name | Role | Phone | + +------+ + PCP | Unavailable | + +------+ + Encounter Details +--------+ + + + + | Date | Type | Department | Care Team | Description | +--------+ + + + + | 07/25/ | Hospital | [facility] | [place], | | | 2010 | Encounter | MED CTR EMERGENCY | Ozzy Kim MD [address] | | | | | CENTER [address] | [address] [facility] | | | | | [place], [place] | [place] [address] | | | | | [address] | [phone] | | | | | [phone] | | | +--------+ + + + [...] | | | | [place] [facility] | | | | | | [address] | | | | | | | | +--------+---------+ + + + | 11/24/ | Office | Cardiology | [place], | | | 2019 | Visit | | SINDHU Erickson [address] | | | | | | [place], | | | | | | [place] [address] | | | | | | [phone] | | | | | | | [...] - 1.030 | [facility] | | | [place] | | | [facility] | | [...] + | [facility] | [address] | [place], [place] | [phone] | | [facility] | | [address] | | | - LABORATORY | | | | + + + + + | [facility] | [address] | [place] | | | [facility] | | [address] | | | - LABORATORY | | | | + + + + + documented in this encounter Visit Diagnoses Not on filedocumented in this encounter"
--- OUTSIDE RECORDS SUMMARY | ~2019-01-15 | XMS | Encounter Summary ---
Demographics + + + | Address | [address] | | | [place] [address] | + + + | Home Phone [...] Team Providers + +------+ + | Care Ortho Assistant Name | Role | Phone | [...] | COPD | MD Kevin | [address] | | | | | (chronic | [address] | [place], | | | | | obstructive | [place] | [place] [address] | | | | | pulmonary | [place], | Phone: | | | | | disease) | [place] [address] | [phone] | | | | | (HCC) | Phone: | Fax: | | | | | Procedures | [phone] | [phone] | | | | | CT Chest wo | Fax: | | | | | | Contrast | [phone] | | +--------+--------+ + + + + Reason for Visit +--------+ + | Reason | Comments | +--------+ + | COPD | | +--------+ + Encounter Details +--------+---------+ + + + | Date | Type | Department | Care Team | Description | +--------+---------+ + + + | 10/19/ | Office | [facility] | Kevin Sandoval, | COPD exacerbation | | 2013 | Visit | PULMONARY [address] | MD [address] | ([facility]) (Primary Dx); | | | | [address] [place], | [place], [place] | COPD (chronic | | | | [place] [address] | [address] | obstructive | | | | [phone] | | pulmonary disease) | | | | | | ([facility]); Hypoxemia | +--------+---------+ + + + Social [...] not start to improve within 24 hours 5755-5845 Rafael Perez, [address] [place] [address], [place] [address]. All rights reserve d. This information is not intended as a substitute for professional medical care. Always fo llow your healthcare professional's instructions. documented in this encounter Progress Notes Kevin Sandoval MD - 10/19/2013 10:35 AM PDTFormatting of this note might be different f rom the original. Pulmonary Follow Up 10/19/2013 [facility] Rosario Malik is a 48 y.o. [...] d 99 months. Please send order to [facility] Disp: 1 each, Rfl: 0 Respiratory Therapy Supplies MISC, Change CPAP back to 11-14 cm H2O. All necessary supplies . No oxygen bleed in. Diagnosis Code(s)327.23. Length of Need: Lifetime. Please send order t [facility]. This is not a new order, [...] reassessment for her supplemental oxygen needs per [facility] care criteria. Plan 1. Complete prednisone [...] | | | | [place] | | | | | | [address] | | | | | | | | +--------+---------+ + + + | 11/24/ | Office | Cardiology | [place], | | | 2020 | Visit | | SINDHU Erickson [address] | | | | | | [place], | | | | | | [place] [address] | | | | | | [phone] | | | | | | | [...] + | MISCELLANEOUS LAB | | | [phone] | + +---------+ + + | MISCELANIOUS LAB | | | [phone] | + +---------+ + + documented in [...]
--- OUTSIDE RECORDS SUMMARY | ~2019-01-15 | XMS | Encounter Summary ---
Demographics + + + | Address | [address] | | | [place] [address] | + + + | Home Phone [...] Providers + +------+ + | Care Field Artillery Officer Name | Role | Phone | + +------+ + PCP | Unavailable | + +------+ + Encounter Details +--------+ + + + + | Date | Type | Department | Care Team | Description | +--------+ + + + + | 02/08/ | Hospital | [facility] | Deniz Alexi Kim, | | | 2009 | Encounter | MED CTR EMERGENCY | [address] | | | | | [place] [address] | [place] | | | | | [place] | [address] | | | | | [address] | | | | | | [phone] | | | +--------+ + + + [...] [place] | | | | | | [address] | | | | | | | | +--------+---------+ + + + | 11/24/ | Office | Cardiology | [place], | | | 2019 | Visit | | SINDHU Erickson [address] | | | | | | [place], | | | | | | [place] [address] | | | | | | [phone] | | | | | | | | +--------+---------+ + + + documented as of this encounter Visit Diagnoses Not on filedocumented in this encounter"
--- OUTSIDE RECORDS SUMMARY | ~2019-01-15 | XMS | Encounter Summary ---
Demographics + + + | Address | [address] | | | [place] [address] | + + + | Home Phone [...] Organization | [facility] | | | [...] Team Providers + +------+ + | Care Geodetic Advisor Name | Role | Phone | [...] + + | 09/17/ | Office | [facility] | Ashlee Allison, | Palpitations | | 2018 | Visit | CARDIOLOGY [address] | BUSINESS LAWYER [address] [place] [address] | (Primary Dx); | | | | [place], | [facility], [place] | Paroxysmal atrial | | | | [place] [address] | [address] | tachycardia (HCC); | | | | [phone] | | Hypotension due to | | [...] was again seen in emergency department at [facility] on 08/30/17 for tachycardia, ECG showing sinus tachycardia with rate of 110 beats per minute, no acute f indings, her potassium was found to be low at 3.1, and blood pressure was high 144/111 mmHg, she was given one replacement dose of potassium, and had 48 hour Holter placed. She was aga in seen in emergency department at [facility] on 09/13/17 for tachyca rdia, with [...] takes this da rigoberto Respiratory Therapy Supplies [facility] Please provide patient with necessary CPAP supplies [...] adversely affected Probable Sinus tachycardia with short TX though P waves are difficult to identify due to p oor quality of tracing PAC's Possible Inferior infarct , age undetermined Nonspecific ST and T wave abnormality :cannot exclude ischemia Abnormal ECG When compared with ECG of 30-AUG-2017 11:40, premature supraventricular complexes are no longer present TX interval has decreased Possible Inferior infarct is now present Confirmed by RUSSELL PAUL, RAFA ([id number]) on 09/14/2017 9:47:53 AM LAB RESULTS reviewed during visit today primarily from [facility] and [facility]: LIPID Lab Results Component Value Date [...] BNP 22 08/14/2017 I reviewed records from [facility] for emergency department visit o n 08/14/17, 08/30/17, and 09/13/17 which is summarized in the HPI. IMAGING- I reviewed reports from [facility]: Xr Chest Ap Portable Result Date: [...] and v entricular function done at the [facility]. LVEF 78%. C. Holter Monitor [...] She was seen at the ED of [facility] 3 weeks ago and again [...] this chart may have been created with Every[employer] voice recognition software. Occasi onal wrong-word or [...] [place] | | | | | | [address] | | | | | | | | +--------+---------+ + + + | 11/24/ | Office | Cardiology | [place], | | | 2019 | Visit | | SINDHU Erickson [address] | | | | | | [place], | | | | | | [place] [address] | | | | | | [phone] | | | | | | | [...] [address] | [place] | [phone] | | [facility] | | [address] | | | - LABORATORY | | [...] | 0.79 | 0.60 - 1.30 | [facility] | | | | | mg/dL [...] mL/min/1.73m2 | [facility] | | | [facility] | RATE,ESTIMATED | | MEDICAL | | | | mL/min/1.08o8Ypnh than | | CENTER - | | [...] [address] | [place] | [phone] | | [facility] | | [address] | | | - LABORATORY | | [...]
--- OUTSIDE RECORDS SUMMARY | ~2019-01-15 | XMS | Encounter Summary ---
Demographics + + + | Address | [address] | | | [place] [address] | + + + | Home Phone [...] Providers + +------+ + | Care Campus Executive Director Name | Role | Phone | [...] Description | +--------+---------+ + + + | 07/15/ | Office | [facility] | Kevin Sandoval, | COPD exacerbation | | 2013 | Visit | PULMONARY [address] | [address] | ([facility]) (Primary Dx); | | | | [place], | [place], [place] | COPD (chronic | | | | [place] [address] | [address] | obstructive | | | | [phone] | | pulmonary disease) | | | | | | ([facility]); Hypoxemia | +--------+---------+ + + + [...] + + + | Blood Pressure | 106/60 | 07/15/2013 8:54 AM | | | | | PDT | | + + + + + | Pulse | 112 | 07/15/2013 8:54 AM | | | | | PDT | | + + + + + | Temperature | - | - | | + + + + + | Respiratory Rate | - | - | | + + + + + | Oxygen Saturation | 93% | 07/15/2013 8:54 AM | On 3LPM | | | | PDT | | + + + + + | Inhaled Oxygen | - | - | | | Concentration | | | | + + + + + | Weight | 64 kg (141 lb 3.2 | 07/15/2013 8:54 AM | | | | oz) | PDT | | + + + + + | Height | 157.5 cm (5' 2") | 07/15/2013 8:54 AM | | | | | PDT | | + + + + + | Body Mass Index | 25.83 | 07/15/2013 8:54 AM | | | | | PDT | | + + + + + documented in this encounter Patient Instructions Patient Instructions Kevin Sandoval MD - 07/15/2013 9:22 AM PDTCall if symptoms worsen . documented in this encounter Progress Notes Kevin Sandoval MD - 07/15/2013 9:09 AM PDTFormatting of this note might be different f rom the original. Pulmonary Follow Up 07/15/2013 HPI Rosario Malik is a 48 y.o. female patient of Juan Cherry here today for follow up of COPD. The patient was in her normal state of health until last Friday when she started to develop worsening shortness of breath. Rosario was able to control her symptoms until Friday alayna hanny. She subsequently contacted myself by phone. She reported using their nebulizer every hour or so without relief. It was recommended that the patient seek care in the emergency department. Rosario was felt to be experiencing a COPD exacerbation and was prescribed prednisone (40 mg for 5 days) and azithromycin. She was subsequently discharged home. Gradual improvement of her symptoms has occurred over last 24 hours. No apparent side effe cts from prednisone or Zithromax are noted. The patient has not yet returned to work. She is also using supplemental oxygen at all times. Her oxygen is at 3 L per minute. Last visit was on 06/18/13. Since their last appointment they feel like their breathing iss ues have been decreasing over last 24 hours. They have had any acute illnesses. They are cur rently on a daily regimen of Advair, Spriva and prednisone . They do feel like this medicat ion regimen is working for them. They return today for routine follow up. Currently she is u sing their rescue inhaler, ProAir, 1-2 times a day. They are using their albuterol nebulize r, 4-6 times a day. Currently the patient is able to walk 20-30 feet at their own pace on level ground. They ar e not exercising regularly. They are not enrolled in cardiac/pulmonary rehabilitation or [facility] er physical therapy. They have not completed pulmonary rehabilitation in the past. The patient does cough, and does produce mucous. The mucous is yellow in color. She has been evaluated for nocturnal oxygen and does not typically use supplemental O2 whil e sleeping or with exertion. Uses CPAP at night. She does not had symptoms of heartburn or reflux. They have not had symptoms of nasal conge stion, runny nose or post nasal drip. The patient has received this year's influenza vaccination. They are up to date with their Pneumovax. The patient request the ability to return to work tomorrow. Past Medical History Past Medical History Diagnosis [...] [facility] Overview: Managed by [facility] along with hypothyroidism Osteoarthritis Social History: She reports that she quit smoking about 10 months ago. She has never used smokeless tobacco . She reports that she does not drink [...] of Breath., Disp: 150 mL, Rfl: 5 azithromycin (ZITHROMAX) 250 mg tablet, Take 2 tablets by mouth daily x 1 day, then take 1 tablet by mouth daily x 4 days., Disp: 6 tablet, Rfl: 0; DULoxetine (CYMBALTA) 60 MG capsul e, Take one by mouth daily, Disp: , Rfl: ; gabapentin (NEURONTIN) 800 MG tablet, Take 800 m g by mouth 3 times daily., Disp: , Rfl: ; levothyroxine (SYNTHROID, LEVOTHROID) 75 MCG tabl et, Take 75 mcg by mouth every morning (before breakfast)., Disp: , Rfl: Multiple Vitamins-Minerals (MULTIVITAMIN PO), Take by mouth Daily., Disp: , Rfl: ; omepra zole (PRILOSEC) 20 mg capsule, Take 20 mg by mouth Daily as needed., Disp: , Rfl: ; predniS ONE (DELTASONE) 10 mg tablet, Take 3 tablets by mouth daily for 4 days. Decrease by 1 tab e very three days till taper is complete., Disp: 24 tablet, Rfl: 0 Respiratory Therapy Supplies MISC, Incentive spirometer. Please provide instructions in use . Dx: 848.8 MADELEINE: 3 months, Disp: 1 each, Rfl: 99; Respiratory Therapy Supplies MISC, Please provide patient with necessary CPAP supplies (she did not specify, okay to send order as ap propriate) Diagnosis Code(s)327.23 . Length of Need 99 months. Please send order to [facility] D isp: 1 each, Rfl: 0 Respiratory Therapy Supplies MISC, Change CPAP back to 11-14 cm H2O. All necessary supplies . No oxygen bleed in. Diagnosis Code(s)327.23. Length of Need: Lifetime. Please send order t [facility]. This is not a new order, just [...] Denies urticaria and allergic rash. Objective BP 106/60 | Pulse 112 | Ht 1.575 m (5' 2") | Wt 64.048 kg (141 lb 3.2 oz) | BMI 25.82 kg/m2 | SpO2 93% Appearance: Alert, cooperative, no distress, appears stated age. Head: Normocephalic, without obvious abnormality, atraumatic. Eyes: PERRL, conjunctiva/corneas clear. Nose: Nares normal, septum midline, mucosa normal, no drainage or sinus tenderness. Throat: Oral mucosa and tongue are normal. No thrush. Neck: Supple, no JVD Lungs: No accessory muscle use, breath sounds few expiratory wheezes bilaterally. No craft demonstrator ckles or rhonchi. No dullness to percussion. Chest Wall: No tenderness or deformity. Heart: Regular rate and rhythm. S1, S2 normal. No murmur, rubs or gallops. Extremities: Extremities normal/atraumatic. No cyanosis, clubbing. no edema. Skin: Warm and dry. Lymph nodes: No significant cervical and supraclavicular nodes. Neurologic: Gait normal. No apparent weakness.mild tremor in hands. Data: Recent records from the emergency department were reviewed today. Exertional oximetry the patient's O2 saturation at rest was 88-89%. Oxygen at 3 L per sarabjit te via a "pulse" system was required to maintain saturation in the low 90s. Assessment 1. COPD exacerbation-fairly severe resulting in hypoxemia and significant symptomatology. Improvement over last 24 hours. Rosario has requested the ability to return to work. I shared concerns with the patient r egarding this timeline. I've asked her to monitor her symptoms closely and not returned to work until significant improvement is noted. We discussed alterations to the patient's prednisone taper. There is no indication to amado ge her azithromycin. 2. Hypoxemia-as noted previously Rosario is in need of assessment of her supplemental ox ygen but she needs to be at her baseline. The values from today are not relevant regarding an ongoing need for supplemental oxygen. 3. Obstructive sleep apnea-not addressed during this clinic appointment. Total duration the patient's clinic appointment was in excess of 30 minutes. Greater than 50% of the time was spent in counseling regarding COPD exacerbations and behaviors which ult imately can result in less emergency department visits. Plan 1. Change to prednisone taper as noted above. 2. Complete course of azithromycin. 3. Pulmonary clinic followup appointment in 3 weeks time. 4. Will perform exertional oximetry assessment at the time of followup. CC: Juan Cherry documented in this encounter [...] | | | | | | [place] [address] | | | | | | [phone] | | | | | | | | +--------+---------+ + + + + + +--------+ + + | Name | Type | Priori | Associated Diagnoses | Order Schedule | | | | ty | | | + + +--------+ + + | Ambulating oximetry, | Respiratory | Routin | COPD (chronic | Expected: | | clinic, | Care | e | obstructive | 07/15/2013, Expires: | | qualification | | | pulmonary disease) | 07/15/2014 | | | | | ([facility]) | | + + +--------+ + + documented as of this encounter Procedures + +--------+ + + + | Procedure Name | Priori | Date/Time | Associated Diagnosis | Comments | | | ty | | | | + +--------+ + + + | DIAGNOSTIC REPORT - | | 07/15/2013 | | | | EXTERNAL SCAN | [...]
--- OUTSIDE RECORDS SUMMARY | ~2019-01-15 | XMS | Encounter Summary ---
Demographics + + + | Address | [address] | | | [place] [address] | + + + | Home Phone [...] Team Providers + +------+ + | Care Contract Law Specialist Name | Role | Phone | [...] Destinee ChirinosdrewChris | | | | | [phone] | [place] [address] | | +--------+ + + + + [...] [place] | | | | | | [address] | | | | | | | | +--------+---------+ + + + | 11/24/ | Office | Cardiology | [place], | | | 2019 | Visit | | SINDHU Erickson [address] | | | | | | [place], | | | | | | [place] [address] | | | | | | [phone] | | | | | | | [...]
--- OUTSIDE RECORDS SUMMARY | ~2019-01-15 | XMS | Encounter Summary ---
Demographics + + + | Address | [address] | | | [place] [address] | + + + | Home Phone [...] Providers + +------+ + | Care Sheet Rocker Name | Role | Phone | + [...] [address] [place] | [place] [address] | | | | | [place], [place] | [phone] | | | | | [address] | | | | | | [phone] | | | +--------+ + + + [...] [place] | | | | | | [address] | | | | | | | | +--------+---------+ + + + | 11/24/ | Office | Cardiology | [place], | | | 2019 | Visit | | SINDHU Erickson [address] | | | | | | [place], | | | | | | [place] [address] | | | | | | [phone] | | | | | | | | +--------+---------+ + + + documented as of this encounter Visit Diagnoses + + | Diagnosis | + + | Sprain of chest wall - Primary Other specified sites of sprains and strains | + + documented in this encounter"
--- OUTSIDE RECORDS SUMMARY | ~2019-01-15 | XMS | Encounter Summary ---
Demographics + + + | Address | [address] | | | [place] [address] | + + + | Home Phone [...] Team Providers + +------+ + | Care Consumer Experience Consultant Name | Role | Phone | + +------+ + | Juan Cherry DO | PCP | | + +------+ + Encounter Details +--------+---------+ + + + | Date | Type | Department | Care Team | Description | +--------+---------+ + + + | 11/21/ | Surgery | [facility] | [facility] | Cystoscopy, | | 2016 | | MED CTR OR INTRA OP | MD Robert [address] | Hydrodistention & | | | | [address] | [place] | Bladder Biopsy | | | | [place], [place] | [place] [address] | | | | | [address] | [phone] | | | | | [phone] | | | +--------+---------+ + + + [...] (the anesthesiologist will discuss these with you) [phone] [employer]. [address] [place] [address]. All righ ts reserved. This information is [...] | | | | send order to [facility] | | | | | | [...] | 0 | 10/13/19 | | | Ynejzgposm-DIFU-Leqx | mouth as needed. | | | 16 | 7 | | -Cod [id number] MG | | | | | | [...] [place] | | | | | | [address] | | | | | | | | +--------+---------+ + + + | 11/24/ | Office | Cardiology | [place], | | | 2019 | Visit | | SINDHU Erickson [address] | | | | | | [place], | | | | | | [place] [address] | | | | | | [phone] | | | | | | | [...] ST. | [address] | [place], [place] | [phone] | | [facility] | | [address] | | | - LABORATORY | | [...] mild chronic mucosal | | | inflammation. JVR:[facility]:C2NR GROSS DESCRIPTION: The specimen is | | | received in three parts. A. The specimen is labeled and | | | designated "HamptonRosarionn, posterior bladder wall". Received | | | in formalin is one pink colored tissue fragment, it measures 0.25 x | | | 0.4 cm. all into (A1). B. The specimen is labeled and designated | | | "Hampton, Rosario Rea, right bladder wall". Received in formalin is | | | one pink colored tissue fragment, 0.3 x 0.3 cm, all into (B1). C. | | | The specimen is labeled and designated "Hampton, Rosario Rea, left | | | bladder wall". Received in formalin is one pink colored tissue | | | fragment, it measures 0.3 x 0.3 cm, all into (C1). yt:CLR:[facility] | | | MICROSCOPIC EXAMINATION: Histologic sections of all submitted blocks | | | are examined by light microscopy. These findings, together with the | | | gross examination, support the pathologic diagnosis. PERFORMING | | | LABORATORY: Tissue processing and slide preparation were performed by | | | [email or web address], [address] [place] [address], [address], [place] [address] | | | (Piece Goods Clerk: Kale Estrella M.D.; CLIA#: [id number]). | | | Professional interpretation was performed by [email or web address], | | | [facility], [address] [facility] | | | [place] [address] (Piece Goods Clerk: Kale Estrella M.D.; CLIA#: | | | [id number]). Diagnostician: Kale Estrella MD Pathologist | | [...] | Diagnosis | + + | Chronic interstitial cystitis without hematuria Chronic interstitial cystitis | + + | Chronic nonspecific cystitis | + + documented in this [...] | | | | | | use Jackson 10/325 if ordered. If | | | [...]
--- OUTSIDE RECORDS SUMMARY | ~2019-01-15 | XMS | Encounter Summary ---
Demographics + + + | Address | [address] | | | [place] [address] | + + + | Home Phone [...] Team Providers + +------+ + | Care Skid Machine Operator Name | Role | Phone [...] [address] | | | | | [place], | [place] | | | | | [place] [address] | [address] | | | | | [phone] | | | +--------+--------+ + + + [...] [place] | | | | | | [address] | | | | | | | | +--------+---------+ + + + | 11/24/ | Office | Cardiology | [place], | | | 2019 | Visit | | SINDHU Erickson [address] | | | | | | [place] | | | | | | [place] [address] | | | | | | [phone] | | | | | | | | +--------+---------+ + + + documented as of this encounter Visit Diagnoses Not on filedocumented in this encounter"
--- OUTSIDE RECORDS SUMMARY | ~2019-01-15 | XMS | Encounter Summary ---
Demographics + + + | Address | [address] | | | [place] [address] | + + + | Home Phone [...] Providers + +------+ + | Care Job Spotter Name | Role | Phone | + +------+ + | Juan Cherry DO | PCP | | + +------+ + Encounter Details +--------+ + + + + | Date | Type | Department | Care Team | Description | +--------+ + + + + | 09/09/ | Hospital | [facility] GENER[facility] IP | Conversion | Pain | | 2015 | Encounter | CONVERSION [address] | Transaction, | | | | | [address] | Provider Unknown | | | | | [place], [place] | [phone] | | | | | [address] | | | | | | [phone] | | | +--------+ + + + [...] | | | | | | | [facility]. | | | | | | [...] | | | | | | | ([facility]) | | | | | [...] | | | [address] [facility] | | | | | | [address] | | | | | | | | +--------+---------+ + + + | 11/24/ | Office | Cardiology | [place], | | | 2019 | Visit | | SINDHU Erickson [address] | | | | | | [place], | | | | | | [place] [address] | | | | | | [phone] | | | | | | | [...]
--- OUTSIDE RECORDS SUMMARY | ~2019-01-15 | XMS | Encounter Summary ---
Demographics + + + | Address | [address] | | | [place] [address] | + + + | Home Phone [...] Team Providers + +------+ + | Care Forming Department End Finder Name | Role | Phone | + [...] [address] | | | | | [place], | [place] | | | | | [place] [address] | [address] | | | | | [phone] | | | +--------+--------+ + + + [...] [place] | | | | | | [address] | | | | | | | | +--------+---------+ + + + | 11/24/ | Office | Cardiology | [place], | | | 2019 | Visit | | SINDHU Erickson [address] | | | | | | [place], | | | | | | [place] [address] | | | | | | [phone] | | | | | | | | +--------+---------+ + + + documented as of this encounter Visit Diagnoses Not on filedocumented in this encounter"
--- OUTSIDE RECORDS SUMMARY | ~2019-01-15 | XMS | Encounter Summary ---
Demographics + + + | Address | [address] | | | [place] [address] | + + + | Home Phone [...] Providers + +------+ + | Care Civil Project Engineer Name | Role | Phone [...] | with brief | [address] | [place] | | | | n | loss of | [address] | [place], | | | | | consciousnes | [place], | [place] [address] | | | | | s | [place] [address] | Phone: | | | | | Post-concuss | Phone: | [phone] | | | | | ion vertigo | [phone] | Fax: | | | | | [id number] | Fax: | [phone] | | | | | (ICD-10-CM) | [phone] | | | | | | - [...] | Concussion | Aaron Kim MD | Partner Marketing Manager [address] | | | Required | | with brief | [address] | [place] | | | | | loss of | [address] | [place], [place] | | | | | consciousnes | [place], | [address] | | | | | s Word | [place] [address] | Phone: | | | | | finding | Phone: | [phone] | | | | | difficulty | [phone] | Fax: | | | | | [id number] | Fax: | [phone] | | | | | (ICD-10-CM) | [phone] | | | | | | - [...] + + | 04/11/ | Office | [facility] [place] | Aaron Santoyo, | Concussion with | | 2016 | Visit | PHYSIATRY [address] | [address] | brief loss of | | | | [place], | [place], [place] | consciousness | | | | [place] [address] | [address] | (Primary Dx); | | | | [phone] | | Post-concussion | | | | [...] MD - 04/11/2016 12:43 PM PST [facility] PHYSIATRY [address] [facility][1] [address] OFFICE NOTE AARON SANTOYO JR, MD Patient: JADYN SCHMITZ Admitting: MR #: [id number] LOC: PT TYPE: Adm Date: 04/11/2016 : 1965 PHYSICAL MEDICINE REHABILITATION PROGRESS NOTE DATE OF : 1965 PRIMARY CARE PROVIDER: Yong Cherry DO DATE OF SERVICE: 04/11/2016 PATIENT IDENTIFICATION: A 51-year-old female with mechanical fall, concussion, and brief loss of consciousness on 03/15/2016. HISTORY OF PRESENT ILLNESS: The patient was last seen by md 03/28/2016. She had a concuss ion 03/23/2016 [...] Transcribed on 04/11/2016 20:34:55 by ms job# [id number] Confirmation #: [id number] cc: YONG CHERRY DO ichael, Aaron Kim MD - 04/11/2016 11:47 AM PSTThis office note has been dictated. Report Confirmation# [id number] signed by Aaron Santoyo MD at 04/11/2016 [...] | | | | | | [place] [address] | | | | | | [phone] | | | | | | | [...]
--- OUTSIDE RECORDS SUMMARY | ~2019-01-15 | XMS | Encounter Summary ---
Demographics + + + | Address | [address] | | | [place] [address] | + + + | Home Phone [...] Team Providers + +------+ + | Care Tunnel Elastic Operator Zigzag Name | Role | Phone | + [...] [address] | | | | | [place], | [place], | | | | | [place] [address] | [place] [address] | | | | | [phone] | [phone] | | | | | | | [...] [place] | | | | | | [address] | | | | | | | | +--------+---------+ + + + | 11/24/ | Office | Cardiology | [place], | | | 2019 | Visit | | SINDHU Erickson [address] | | | | | | [place], | | | | | | [place] [address] | | | | | | [phone] | | | | | | | [...]
--- OUTSIDE RECORDS SUMMARY | ~2019-01-15 | XMS | Encounter Summary ---
Demographics + + + | Address | [address] | | | [place] [address] | + + + | Home Phone [...] Providers + +------+ + | Care Hospital Nurse Liaison Name | Role | Phone [...] 2013 | | [facility] | [place] [address] | exacerbation (HCC) | | | | [place] [address] | [facility] [place] | (Primary Dx) | | | | [place], [place] | [place] [address] | | | | | [address] | [phone] | | | | | [phone] | | | +--------+ + + + [...] [place] | | | | | | [address] | | | | | | | | +--------+---------+ + + + | 11/24/ | Office | Cardiology | [place], | | | 2019 | Visit | | SINDHU Erickson [address] | | | | | | [place], | | | | | | [place] [address] | | | | | | [phone] | | | | | | | [...] + | MISCELLANEOUS LAB | | | [phone] | + +---------+ + + | MISCELANIOUS LAB | | | [phone] | + +---------+ + + ED INFORMATION EXCHANGE (08/13/2013 8:38 PM PDT) + + | Specimen | + + | | + + + + + | Narrative | Performed At | + + + | VISIT TRACKING (3 MO.) Visit Date Location | [facility] | | Type Diagnoses | | | -------- | | | ---- 08/13/2013 20:37 [facility] | | | [facility] Emergency COPD Exasperation; | | | 07/18/2013 12:06 [facility] | | | Emergency Arm Laceration; | | | | | | Open wound of upper arm, without mention of complication; | | | | | | cut on Lft arm; 07/14/2013 00:15 | | | [facility] Emergency Shortness of | | | Breath; | | | Chronic obstructive | | | asthma with (acute) exacerbation; 06/19/2013 21:06 [facility] | | | [facility] Emergency Obstructive chronic | | | bronchitis with (acute) exacerbation; | | | | | | Shortness of Breath; | | | diff | | | breathing; 06/19/2013 11:03 [facility] | | | Emergency COPD exasperation; 05/23/2013 19:52 | | | [facility] Emergency Obstructive | | | chronic bronchitis with (acute) exacerbation; | | | | | | Obstructive chronic bronchitis with (acute) | | | exacerbation; | | | sob; | | | | | | Shortness of Breath; VISIT COUNT (1 | | | YR.) Visits Medicaid NE Dx Location ------ | | | --------- 12 0 | | | [facility] 12 0 | | | Total Note: Visits indicate total known visits. Medicaid | | | NE Dx are the number of primary diagnoses on the [facility]'s non-emergent dx | | | [...]
--- OUTSIDE RECORDS SUMMARY | ~2019-01-15 | XMS | Encounter Summary ---
Demographics + + + | Address | [address] | | | [place] [address] | + + + | Home Phone [...] Providers + +------+ + | Care Plate Stacker Hand Name | Role | Phone | [...] ST | | | | | [address] [place] | [place] | | | | | [place] [address] | [address] | | | | | [phone] | | | +--------+ + + + [...] | | | | | | [place] [address] | | | | | | [phone] | | | | | | | | +--------+---------+ + + + documented as of this encounter Visit Diagnoses Not on filedocumented in this encounter"
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
--- OUTSIDE RECORDS SUMMARY | ~2019-01-15 | XMS | Encounter Summary ---
Demographics + + + | Address | [address] | | | [place] [address] | + + + | Home Phone [...] Team Providers + +------+ + | Care Sleep Technician Name | Role | Phone | + +------+ + | Juan Cherry DO | PCP | | + +------+ + Encounter Details +--------+ + + + + | Date | Type | Department | Care Team | Description | +--------+ + + + + | 02/21/ | Abstract | [facility] [place] | [place], | | | 2013 | | CARDIOLOGY [address] | SINDHU Erickson [address] | | | | | [place], | [place], | | | | | [place] [address] | [place] [address] | | | | | [phone] | [phone] | | | | | | | [...] [place] | | | | | | [address] | | | | | | | | +--------+---------+ + + + | 11/24/ | Office | Cardiology | [place], | | | 2019 | Visit | | SINDHU Erickson [address] | | | | | | [place] | | | | | | [place] [address] | | | | | | [phone] | | | | | | | | +--------+---------+ + + + documented as of this encounter Visit Diagnoses Not on filedocumented in this encounter"
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
--- OUTSIDE RECORDS SUMMARY | ~2019-01-15 | XMS | Encounter Summary ---
Demographics + + + | Address | [address] | | | [place] [address] | + + + | Home Phone [...] Team Providers + +------+ + | Care Poker Machine Attendant Name | Role | Phone | [...] | with brief | [address] | [place] | | | | n | loss of | [address] | [place], | | | | | consciousnes | [place], | [place] [address] | | | | | s | [place] [address] | Phone: | | | | | Post-concuss | Phone: | [phone] | | | | | ion vertigo | [phone] | Fax: | | | | | [id number] | Fax: | [phone] | | | | | (ICD-10-CM) | [phone] | | | | | | - [...] + + | 06/18/ | Office | [facility] | Aaron Rodriguez, | Dizziness (Primary | | 2017 | Visit | MED CTR THERAPY PT | MD [address] | Dx); Impaired | | | | OP [address] | [place] | mobility and | | | | [place] | [id number] | activities of daily | | | | [address] | | living; Concussion | | | | [phone] | Lakeshia Cleary, PT | with brief (less | | | | | [address] | than one hour) loss | | | | | [place] | of consciousness; | | | | | [address] | Intractable acute | | | | [...] might be different from t he original. [facility] THERAPY PT OP [address] [place] [address] Physical Therapy Daily Treatment Note Date: 06/18/2016 [...] Precautions Office Visit from 05/01/2016 in [facility] CTR THERAPY PT OP Rehab Precautions [...] | | | [facility] | | | | | | [id number] | | | | | | | | +--------+---------+ + + + | 11/24/ | Office | Cardiology | [place], | | | 2019 | Visit | | SINDHU rEickson [address] | | | | | | [place], | | | | | | [place] [address] | | | | | | [phone] | | | | | | | [...]
--- OUTSIDE RECORDS SUMMARY | ~2019-01-15 | XMS | Encounter Summary ---
Demographics + + + | Address | [address] | | | [place] [address] | + + + | Home Phone [...] Providers + +------+ + | Care Clothing Worker Name | Role | Phone | [...] + + | 07/09/ | Clinical | [facility] | Andriy Weber | Bladder pain | | 2018 | Support | [address] | MD [address] | (Primary Dx) | | | | [place], [place] | [address] [facility] | | | | | [address] | [place] [address] | | | | | [phone] | [phone] | | | | | | | [...] [place] | | | | | | [id number] | | | | | | | | +--------+---------+ + + + | 11/24/ | Office | Cardiology | [place], | | | 2019 | Visit | | SINDHU Erickson [address] | | | | | | [place], | | | | | | [place] [address] | | | | | | [phone] | | | | | | | [...]
--- OUTSIDE RECORDS SUMMARY | ~2019-01-15 | XMS | Encounter Summary ---
Demographics + + + | Address | [address] | | | [place] [address] | + + + | Home Phone [...] Providers + +------+ + | Care Belt And Link Assembly Supervisor Name | Role | Phone | [...] | RN | | | | | [place], | | | | | | [place] [address] | | | | | | [phone] | | | +--------+ + + + [...] [place] | | | | | | [address] | | | | | | | | +--------+---------+ + + + | 11/24/ | Office | Cardiology | [place], | | | 2020 | Visit | | SINDHU Erickson [address] | | | | | | [place], | | | | | | [place] [address] | | | | | | [phone] | | | | | | | | +--------+---------+ + + + documented as of this encounter Visit Diagnoses Not on filedocumented in this encounter"
--- OUTSIDE RECORDS SUMMARY | ~2019-01-15 | XMS | Encounter Summary ---
Demographics + + + | Address | [address] | | | [place] [address] | + + + | Home Phone [...] Team Providers + +------+ + | Care Sustainability Project Manager Name | Role | Phone [...] + + | 05/06/ | Office | [facility] | [place], | Palpitations | | 2018 | Visit | CARDIOLOGY [address] | SINDHU Erickson [address] | (Primary Dx); Chest | | | | [place], | [place], | pain, unspecified | | | | [place] [address] | [place] [address] | type; Syncope, | | | | [phone] | [phone] | unspecified syncope | | | | [...] 2 times daily. She [facility] Res[facility] Therapy Supplies [facility] Please provide patient with necessary CPAP supplies ( she did not specify, okay to send order as appropriate) Diagnosis Code(s)327.23 . Length of Need 99 months. Please send order to [facility]. 1 each 0 Respiratory Therapy Supplies MISC [...] RESULTS reviewed during visit today primarily from [facility]: LIPID Lab Results Component Value Date [...] She was seen at the ED of [facility] 3 weeks ago and again 1 [...] is in a class I-II o f [place] [employer] functional class. There is no [...] and v entricular function done at the [facility]. LVEF 78%. C. Holter Monitor 08/16/13 [...] this chart may have been created with HOSTING voice recognition software. Occasi onal wrong-word or [...] [place] | | | | | | [address] | | | | | | | | +--------+---------+ + + + | 11/24/ | Office | Cardiology | [place], | | | 2019 | Visit | | SINDHU Erickson [address] | | | | | | [place] | | | | | | [place] [address] | | | | | | [phone] | | | | | | | [...] CLAY | | | | | | ([id number]) on 05/06/2017 | | | | | [...]
--- OUTSIDE RECORDS SUMMARY | ~2019-01-15 | XMS | Encounter Summary ---
Demographics + + + | Address | [address] | | | [place] [address] | + + + | Home Phone [...] Team Providers + +------+ + | Care Forensic Locksmith Name | Role | Phone | + +------+ + PCP | Unavailable | + +------+ + Encounter Details +--------+ + + + + | Date | Type | Department | Care Team | Description | +--------+ + + + + | 12/28/ | Hospital | [facility] | Ozzy Delcid, | | | 2009 - | Encounter | MED CTR OP REHAB | [address] | | | | | [address] [place] | [place] | | | 01/23/ | | [place] [address] | [address] | | | 2009 | | [phone] | | | +--------+ + + + [...] [place] | | | | | | [address] | | | | | | | | +--------+---------+ + + + | 11/24/ | Office | Cardiology | [place], | | | 2019 | Visit | | SINDHU Erickson [address] | | | | | | [place], | | | | | | [place] [address] | | | | | | [phone] | | | | | | | | +--------+---------+ + + + documented as of this encounter Visit Diagnoses Not on filedocumented in this encounter"
--- OUTSIDE RECORDS SUMMARY | ~2019-01-15 | XMS | Encounter Summary ---
Demographics + + + | Address | [address] | | | [place] [address] | + + + | Home Phone [...] Team Providers + +------+ + | Care Soap Boiler Name | Role | Phone | + [...] | | | | | [place] MA | [facility] | | | | | [address] | [place] [address] | | | | | [phone] | [phone] | | | | | | | [...] [place] | | | | | | [address] | | | | | | | | +--------+---------+ + + + | 11/24/ | Office | Cardiology | [place], | | | 2019 | Visit | | SINDHU Erickson [address] | | | | | | [place], | | | | | | [place] [address] | | | | | | [phone] | | | | | | | [...] 1.001 - 1.030 | | | | [place], | | | | | | [facility], [...]
--- OUTSIDE RECORDS SUMMARY | ~2019-01-15 | XMS | Encounter Summary ---
Demographics + + + | Address | [address] | | | [place] [address] | + + + | Home Phone [...] Providers + +------+ + | Care Laboratory Clerk Name | Role | Phone | [...] | | CARDIOLOGY [address] | Georgina, DERMATOLOGY NURSE PRACTITIONER [address] | tachycardia (HCC); | | | | [place], | [place], | Encounter for lipid | | | | [place] [address] | [place] [address] | screening for | | | | [phone] | [phone] | cardiovascular | | | | | [...] [place] | | | | | | [address] | | | | | | | | +--------+---------+ + + + | 11/24/ | Office | Cardiology | [place], | | | 2019 | Visit | | SINDHU Erickson [address] | | | | | | [place], | | | | | | [place] [address] | | | | | | [phone] | | | | | | | | +--------+---------+ + + + documented as of this encounter Visit Diagnoses + + | Diagnosis | + + | Paroxysmal atrial tachycardia (HCC) Paroxysmal supraventricular tachycardia | + + | Encounter for lipid screening for cardiovascular disease | + + documented in this encounter"
--- OUTSIDE RECORDS SUMMARY | ~2019-01-15 | XMS | Encounter Summary ---
Demographics + + + | Address | [address] | | | [place] [address] | + + + | Home Phone [...] Providers + +------+ + | Care Supervisor Title Name | Role | Phone | + [...] | 08/11/ | Telephone | [facility] [place] | Kevin Sandoval, | Other (decision to | | 2013 | | PULMONARY [address] | MD [address] | quit job) | | | | [place], | [place] | | | | | [place] [address] | [id number] | | | | | [phone] | | | +--------+ + + + [...] | | | | | | [place] [address] | | | | | | [phone] | | | | | | | | +--------+---------+ + + + documented as of this encounter Visit Diagnoses + + | Diagnosis | + + | Central sleep apnea Primary central sleep apnea | + + documented in this encounter"
--- OUTSIDE RECORDS SUMMARY | ~2019-01-15 | XMS | Encounter Summary ---
Demographics + + + | Address | [address] | | | [place] [address] | + + + | Home Phone [...] Providers + +------+ + | Care Project Controls Scheduler Name | Role | Phone | [...] | | Ayaka Mar[place] | [facility] | | | | | [address] | [place] [address] | | | | | [phone] | [phone] | | | | | | | [...] [place] | | | | | | [address] | | | | | | | | +--------+---------+ + + + | 11/24/ | Office | Cardiology | [place], | | | 2019 | Visit | | SINDHU Erickson [address] | | | | | | [place], | | | | | | [place] [address] | | | | | | [phone] | | | | | | | | +--------+---------+ + + + documented as of this encounter Visit Diagnoses Not on filedocumented in this encounter"
--- OUTSIDE RECORDS SUMMARY | ~2019-01-15 | XMS | Encounter Summary ---
Demographics + + + | Address | [address] | | | [place] [address] | + + + | Home Phone [...] Providers + +------+ + | Care Paper Sample Clerk Name | Role | Phone | [...] | COPD | MD Kevin | [address] | | | | | (chronic | [address] | [place], | | | | | obstructive | [address] | [place] [address] | | | | | pulmonary | [place], | Phone: | | | | | disease) | [place] [address] | [phone] | | | | | (HCC) | Phone: | Fax: | | | | | Procedures | [phone] | [phone] | | | | | CT Chest wo | Fax: | | | | | | Contrast | [phone] | | +--------+--------+ + + + + [...] | COPD | MD Kevin | [address] | | | | | (chronic | [address] | [place], | | | | | obstructive | [address] | [place] [address] | | | | | pulmonary | [place], | Phone: | | | | | disease) | [place] [address] | [phone] | | | | | (HCC) | Phone: | Fax: | | | | | Procedures | [phone] | [phone] | | | | | CT Chest wo | Fax: | | | | | | Contrast | [phone] | | +--------+--------+ + + + + Encounter Details +--------+ + + + + | Date | Type | Department | Care Team | Description | +--------+ + + + + | 11/16/ | Hospital | [facility] | Kevin Sandoval, | COPD (chronic | | 2013 | Encounter | MED CTR CT [address] | [address] | obstructive | | | | [place], | [place], [place] | pulmonary disease) | | | | [place] [address] | [address] | ([facility]) | | | | [phone] | | | +--------+ + + + [...] [place] | | | | | | [address] | | | | | | | | +--------+---------+ + + + | 11/24/ | Office | Cardiology | [place], | | | 2019 | Visit | | SINDHU Erickson [address] | | | | | | [place], | | | | | | [place] [address] | | | | | | [phone] | | | | | | | [...] + | MISCELLANEOUS LAB | | | [phone] | + +---------+ + + | MISCELANIOUS LAB | | | [phone] | + +---------+ + + documented in this encounter Visit Diagnoses + + | Diagnosis | + + | COPD (chronic obstructive pulmonary disease) (HCC) Chronic airway obstruction, not | | elsewhere classified | + + documented in this encounter
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
--- OUTSIDE RECORDS SUMMARY | ~2019-01-15 | XMS | Encounter Summary ---
Demographics + + + | Address | [address] | | | [place] [address] | + + + | Home Phone [...] Providers + +------+ + | Care Casing Runner Name | Role | Phone | + [...] | | Dx) | | | | [address] | | | | | | [phone] | | | +--------+ + + + [...] have not thoroughly proofread this note, and section forest fire warden erro rs may occur. Nancy Simms C MA - 11/01/2015 8:22 AM PDT Pt. Presents for a DMSO #2 for Interstitial Cystitis. Administrations This Visit dimethyl sulfoxide (RIMSO-50) 50% solution 50 mL Admin Date Action Dose Route Administered By 11/01/2015 Given 50 mL Bladder Instillation Nancy Dalal CMA heparin 10,000 units/mL injection 10,000 Units Admin Date Action Dose Route Administered By 11/01/2015 Given 88046 Units Subcutaneous Nancy Dalal CMA lidocaine 2% [...] | | | | | | [place] [address] | | | | | | [phone] | | | | | | | [...] 1.001 - 1.030 | | | | [place], | | | | | | UA, [...]
--- OUTSIDE RECORDS SUMMARY | ~2019-01-15 | XMS | Encounter Summary ---
Demographics + + + | Address | [address] | | | [place] [address] | + + + | Home Phone [...] Providers + +------+ + | Care Medical Reimbursement Specialist Name | Role | Phone | + +------+ + | Juan Cherry DO | PCP | | + +------+ + Encounter Details +--------+ + + + + | Date | Type | Department | Care Team | Description | +--------+ + + + + | 03/22/ | Hospital | [facility] | Guru Cárdenas, | | | 2013 | Encounter | MED CTR EMERGENCY | MD [address] | | | | | CENTER [address] | [facility] [place] | | | | | [place], [place] | [place] [address] | | | | | [address] | [phone] | | | | | [phone] | | | +--------+ + + + [...] | | | | | | [place] [address] | | | | | | [phone] | | | | | | | [...] At | + + + | [facility] | [place] | | Department [facility] [place] | [facility] | | [ rep ct street1+2] [ rep ct [facility] | | st zip] Signed | - IMAGING | | | | | Patient Name: JADYN SCHMITZ | | | Physician: SANG : 1965 Age: 48 Sex: F Unit | | | #: [id number] Exam Date: 03/22/13 Location: | | | ER Report #: [id number] Page: | | | %(RAD)RES..mtdd.print.filter("pg") of %(RAD) | | | RES..mtdd.print.filter("tpg") | | | | | | Accession Number: [id number] | | | PORTABLE CHEST CLINICAL HISTORY: [...] Transcribed Date/Time: 03/22/2013 08:50 | | | Agriculture Manager: <<Signature on File>> | | | | | | Cesar Ren MD03/22/13 1800 <Electronically signed by | | | Cesar Ren MD> Cesar Ren MD 03/22/13 | | | 0811 Agriculture Manager: [employer] Pvfuqqnizbrtx62/27/14 0850 | | | | | + + + + + + + + | Performing | Address | City/State/Zipcode | Phone Number | | Organization | | | | + + + + + | [facility] | [address] | [place] | [phone] | | [facility] | | [address] | | | - IMAGING | | [...] [address] | [place] | [phone] | | [facility] | | [address] | | | - LABORATORY | | | | + + + + + | [facility] | [address] | [place] | | | [facility] | | [address] | | | - LABORATORY | | [...] + | [facility] | [address] | [place] | [phone] | | [facility] | | [address] | | | - LABORATORY | | | | + + + + + | [facility] | [address] | [place] | | | [facility] | | [address] | | | - LABORATORY | | | | + + + + + documented in this encounter Visit Diagnoses Not on filedocumented in this encounter
--- OUTSIDE RECORDS SUMMARY | ~2019-01-15 | XMS | Encounter Summary ---
Demographics + + + | Address | [address] | | | [place] [address] | + + + | Home Phone [...] Providers + +------+ + | Care Software Development Coordinator Name | Role | Phone [...] [place] | breath) | | | | [place], | [place] | | | | | [place] [address] | [address] | | | | | [phone] | | | +--------+ + + + [...] [place] | | | | | | [address] | | | | | | | | +--------+---------+ + + + | 11/24/ | Office | Cardiology | [place], | | | 2019 | Visit | | SINDHU Erickson [address] | | | | | | [place], | | | | | | [place] [address] | | | | | | [phone] | | | | | | | | +--------+---------+ + + + documented as of this encounter Visit Diagnoses Not on filedocumented in this encounter"
--- OUTSIDE RECORDS SUMMARY | ~2019-01-15 | XMS | Encounter Summary ---
Demographics + + + | Address | [address] | | | [place] [address] | + + + | Home Phone [...] Team Providers + +------+ + | Care Pleat Taper Name | Role | Phone | [...] [address] | | | | | [place], | [place] | | | | | [place] [address] | [address] | | | | | [phone] | | | +--------+--------+ + + + [...] [place] | | | | | | [address] | | | | | | | | +--------+---------+ + + + | 11/24/ | Office | Cardiology | [place], | | | 2019 | Visit | | SINDHU Erickson [address] | | | | | | [place] | | | | | | [place] [address] | | | | | | [phone] | | | | | | | | +--------+---------+ + + + documented as of this encounter Visit Diagnoses Not on filedocumented in this encounter"
--- OUTSIDE RECORDS SUMMARY | ~2019-01-15 | XMS | Encounter Summary ---
Demographics + + + | Address | [address] | | | [place] [address] | + + + | Home Phone [...] Team Providers + +------+ + | Care Necktie Centralizing Machine Operator Name | Role | Phone [...] | Specialty | Physical | Diagnoses | [place], | [facility] | | | Services | Therapy | | Grant Maynard MD | Pt Acute | | | Required | | Fibromyalgia | [address] | [address] | | | | | | [address] [place] | [place], | | | | | | [place], [place] | [place] | | | | | | [address] | [address] | | | | | | Phone: | Phone: | | | | | | [phone] | [phone] | | | | | | Fax: | Fax: | | | | | | [phone] | [phone] | +--------+ + + + + + Reason for Visit + + + | Reason | Comments | + + + | New Patient | Establish care | + + + Encounter Details +--------+---------+ + + + | Date | Type | Department | Care Team | Description | +--------+---------+ + + + | 03/02/ | Office | [facility] | Grant Castle, | ORGANIC INSOMNIA | | 2013 | Visit | MEDICINE GIA[place]rew | [address] | UNSPECIFIED (Primary | | | | [address] | [place] | Dx); Primary | | | | [place] | [address] | central sleep apnea; | | | | [address] | | Tobacco user; | | | | [phone] | | Posttraumatic stress | | | [...] your behavior and peer support. Call the Quitline for more information. 788-QOVY-CHN (730-388-2230). Low-cost or free programs are offered by many hospitals, local chapters of the [place] [employer] (261-854-9527) a nd the [place] [employer] (384-437-3050). Support at home is important too. Non-smokers can help by offering praise and encouragement. If the smoker fails to quit, encourage them to try again! QOML-UHH-XFNMUGO MEDICINES: For those who can't quit on [...] such as bupropion (Zyban, Wellbutrin), varenicline (Chantix, Rugby ix), a niocotine inhaler or nasal spray. [...] smoking, visit the following links: National Cancer [place] , Clearing the Air, Quit Smoking Today - an online tejada klet. http://www.smokefree.gov/pubs/clearing_the_air.pdf Smokefree.gov http://smokefree.gov/ QuitNet http://www.quitnet.com/ 1686-1958 Rafael NeumannDeo, [address] [place] [address]. All rights reserve d. This information is [...] to relax by reading or listening to [employer] music. 7. Limit daytime napping to one [...] there) Anxiety, depression Several days without sleeping 5492-3736 Located within [facility], [address] [place] [address]. All rights reserve d. This information is [...] she does wor k. 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 She [...] She has had to be admitted to [facility] and [facility] due to suicidal ideation by overdose. Sh drew did attempt suicide once, can't recall the medicine. This was in 1986 and 1988. No thoug hts of SI or HI in years. She has hypothryroidism managed by [facility]. She sees [facility] due to possible Brodhead's and possi quentin adrenal insufficiency. She has fibromyalgia treated with cymbalta and tramadol. Tried PT years ago. Can't afford [employer] membership. Patient's medications, allergies, past medical, surgical, [...] | | | | [place] | | | | | | [address] | | | | | | | | +--------+---------+ + + + | 11/24/ | Office | Cardiology | [place], | | | 2019 | Visit | | SINDHU Erickson [address] | | | | | | [place], | | | | | | [place] [address] | | | | | | [phone] | | | | | | | [...]
--- OUTSIDE RECORDS SUMMARY | ~2019-01-15 | XMS | Encounter Summary ---
Demographics + + + | Address | [address] | | | [place] [address] | + + + | Home Phone [...] Providers + +------+ + | Care Senior Vice President & General Counsel Name | Role | Phone | + [...] + + | 09/12/ | Telephone | [facility] | Jared Mcdonough, | Appointment | | 2014 | | CARDIOLOGY [address] | [address] | | | | | [place], | [place], | | | | | [place] [address] | [place] [address] | | | | | [phone] | [phone] | | | | | | | [...] [place] | | | | | | [address] | | | | | | | | +--------+---------+ + + + | 11/24/ | Office | Cardiology | [place], | | | 2019 | Visit | | SINDHU Erickson [address] | | | | | | [place], | | | | | | [place] [address] | | | | | | [phone] | | | | | | | | +--------+---------+ + + + documented as of this encounter Visit Diagnoses Not on filedocumented in this encounter"
--- OUTSIDE RECORDS SUMMARY | ~2019-01-15 | XMS | Encounter Summary ---
Demographics + + + | Address | [address] | | | [place] [address] | + + + | Home Phone [...] Team Providers + +------+ + | Care Lumber Straightened Name | Role | Phone | + [...] | Pulmonary | MD Mukul | [address] [place] | | | | | nodule | [address] | [place], | | | | | Procedures | [address] | [place] [address] | | | | | CT Chest wo | [place] | Phone: | | | | | Contrast | [place] | [phone] | | | | | | [address] | Fax: | | | | | | Phone: | [phone] | | | | | | [phone] | | | | | | | Fax: | | | | | | | [phone] | | +--------+--------+ + + + + [...] | Pulmonary | MD Mukul | [address] [place] | | | | | nodule | [address] | [place], | | | | | Procedures | [address] [place] | [place] [address] | | | | | CT Chest wo | [place] R [place] | Phone: | | | | | Contrast | [place], [place] | [phone] | | | | | | [address] | Fax: | | | | | | Phone: | [phone] | | | | | | [phone] | | | | | | | Fax: | | | | | | | [phone] | | +--------+--------+ + + + + Encounter Details +--------+ + + + + | Date | Type | Department | Care Team | Description | +--------+ + + + + | 08/05/ | Hospital | [facility] | Mukul Clark MD | Pulmonary nodule | | 2018 | Encounter | MED CTR CT [address] | [address] | | | | | [place], | [place], [place] | | | | | [place] [address] | [address] | | | | | [phone] | | | +--------+ + + + [...] | | | | | | [place] [address] | | | | | | [phone] | | | | | | | [...] + | Performing | Address | City/State/[facility] | Phone Number | | Organization | | | | + +---------+ + + | [facility] | | | | + +---------+ + + documented in this encounter Visit Diagnoses + + | Diagnosis | + + | Pulmonary nodule Solitary pulmonary nodule | + + documented in this encounter"
--- OUTSIDE RECORDS SUMMARY | ~2019-01-15 | XMS | Encounter Summary ---
Demographics + + + | Address | [address] | | | [place] [address] | + + + | Home Phone [...] Providers + +------+ + | Care Automobile Damage Field Appraiser Name | Role | Phone | + [...] + | 05/31/ | Telephone | [facility] | Kade Hoffman MD | Follow-up ( appt | | 2013 | | CARE [address] | [address] | for COPD | | | | [place] | [place] | exacerbation ) | | | | [address] | [address] | | | | | [phone] | | | +--------+ + + + [...] | | | | [place] | | | | | | [address] | | | | | | | | +--------+---------+ + + + | 11/24/ | Office | Cardiology | [place], | | | 2019 | Visit | | SINDHU Erickson [address] | | | | | | [place], | | | | | | [place] [address] | | | | | | [phone] | | | | | | | | +--------+---------+ + + + documented as of this encounter Visit Diagnoses Not on filedocumented in this encounter"
--- OUTSIDE RECORDS SUMMARY | ~2019-01-15 | XMS | Encounter Summary ---
Demographics + + + | Address | [address] | | | [place] [address] | + + + | Home Phone [...] Providers + +------+ + | Care Manufacturing Associate Name | Role | Phone | + +------+ + | Juan Cherry DO | PCP | | + +------+ + Encounter Details +--------+ + + + + | Date | Type | Department | Care Team | Description | +--------+ + + + + | 02/28/ | Hospital | [facility] | Jarde Mcdonough, | Other chest pain | | 2015 | Encounter | MED CTR CV INTRA OP | MD [address] | | | | | [address] | [place], | | | | | [place], [place] | [place] [address] | | | | | [address] | [phone] | | | | | [phone] | | | +--------+ + + + [...] | | [facility]. | | | | | | [...] [place] | | | | | | [address] | | | | | | | | +--------+---------+ + + + | 11/24/ | Office | Cardiology | [place], | | | 2019 | Visit | | SINDHU Erickson [address] | | | | | | [place], | | | | | | [place] [address] | | | | | | [phone] | | | | | | | [...] RECORD NUMBER: | MEDICAL CENTER | | [id number] DATE OF PROCEDURE: 02/28/2014 MARKETING PROGRAM MANAGER: | - IMAGING | | Jared [...] Malik, (1965) OF | | PROCEDURE: 02/28/2014PRIMARY BASE WAD OPERATOR ADJUSTER: Jared Mcdonough MD PROCEDURES | | PERFORMED:Coronary [...] [address] | [place] | [phone] | | [facility] | | [address] | | | - IMAGING | | [...] 0.94 | 0.60 - 1.30 | [facility] | | | | | mg/dL [...] mL/min/1.73m2 | [facility] | | | [place] | RATE,ESTIMATED | | MEDICAL | | | | mL/min/1.41x0Isui than | | CENTER - | | [...] + | [facility] | [address] | [place], [place] | [phone] | | [facility] | | [address] | | | - LABORATORY | | | | + + + + + | [facility] | [address] | [place], [place] | | | [facility] | | [address] | | | - LABORATORY | | [...]
--- OUTSIDE RECORDS SUMMARY | ~2019-01-15 | XMS | Encounter Summary ---
Demographics + + + | Address | [address] | | | [place] [address] | + + + | Home Phone [...] Team Providers + +------+ + | Care Paver Installer Name | Role | Phone | [...] | (obstructive | [address] | [place] | | | | | sleep | [address] [place] | [place], | | | | | apnea) | [place] | [place] [address] | | | | | J44.9 | [id number] | Phone: | | | | | (ICD-10-CM) | Phone: | [phone] | | | | | - 496 | [phone] | Fax: | | | | | (ICD-9-CM) - | Fax: | [phone] | | | | | Chronic | [phone] | | | | | | obstructive | | | | | | | pulmonary | | | | | | | disease, | | | | | | | unspecified | | | | | | | COPD type | | | | | | | (HCC | | | | | | | Procedures | | | | | | | NC POLYSOM | | | | | | | 6/>YRS SLEEP | | | | | | | W/CPAP 4/> | | | | | | | ADDL ALESSIA | | | | | | | ATTND NC | | | | | | | [...] | +--------+ + + + + | 04/28/ | Hospital | [facility] | Meghan Garcia MD | GARRY (obstructive | | 2019 - | Encounter | MED CTR SLEEP | [address] [facility] | sleep apnea); | | | | CENTER [address] | [place] | Chronic obstructive | | 04/29/ | | [place] | [address] | pulmonary disease, | | 2019 | | [address] | | unspecified COPD | | | | [phone] | | type (HCC) | +--------+ + + + [...] [place] | | | | | | [address] | | | | | | | | +--------+---------+ + + + | 11/24/ | Office | Cardiology | [place], | | | 2019 | Visit | | SINDHU Erickson [address] | | | | | | [place], | | | | | | [place] [address] | | | | | | [phone] | | | | | | | | +--------+---------+ + + + documented as of this encounter Procedures + +--------+ + + + | Procedure Name | Priori | Date/Time | Associated Diagnosis | Comments | | | ty | | | | + +--------+ + + + | SLEEP STUDY PAP | Routin | 04/30/2018 | | Results for this | | TITRATION | e | 9:53 AM | | procedure are in the | | | | PST | | results section. | + +--------+ + + + documented in this encounter Results Sleep study PAP titration (04/30/2018 9:53 AM PST) + + + | Narrative | Performed At | + + + | Meghan Garcia | | | 04/30/2018 13:28 [facility] | | | [place] [address] Positive Airway | | | Pressure Titration Report on Rosario Malik performed on April 28, | | | 2018. Clinical Information: Rosario Malik is a 53 y.o. female | | | with history of COPD, bipolar disorder, hypothyroidism, paroxysmal | | | atrial tachycardia, GERD, interstitial cystitis, and mild obstructive | | | sleep apnea presenting for issues with her bilevel machine. Rosairo | | | states when she was hospitalized for fall and weakness in December | | | 2017, she was told that she needed bleed-in oxygen into her bilevel | | | machine. She has tried to get her [employer] to add the | | | connection part for oxygen to her machine, but it has not happened. | | | Now she only uses her 3 per minute of supplemental oxygen at night and | | | she has not been using her machine for the past few months. 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 When she | | | was using her machine they were not the problem. Discharge summary | | | from ER notes dated 2018 indicates that she had an | | | overnight oximetry on her bilateral while she was hospitalized, and | | | noted to have residual hypoxemia.She says she was told to stop using | | | her bilevel machine until she is able to use the bilevel with oxygen. | | | When I asked her why she used the bilevel machine until she can use | | | oxygen and bilevel together, she states that the machine makes her | | | waking up with panic attack, feeling that she cannot breathe, and she | | | gets some "strokelike symptoms." She says she had this problem one | | | more time before she was hospitalized in December 2017. She cannot | | | remember how many sleep studies she has had so far. However, she was | | | on CPAP for several years before she was switched to bilevel in 2016. | | | I reviewed the notes from Dr. Alarcon in [place], [place]. | | | It indicates that patient had CPAP intolerance because of her COPD. | | | She had a diagnostic polysomnography on February 13, 2015. Sleep | | | efficiency was 83% and mildly decreased. There was 17% of stage R | | | sleep.No comments about the position of sleep. AHI was 5.9. Apnea | | | index was 1.2. RDI was 8. Brennon oxygen saturation was 83%. The | | | saturation was less than 90% for 25% of time. She had a titration | | | study and April 17, 2015. Sleep efficiency was 92%. There was | | | 6% of stage R sleep. Bilevel at 8 over 4 cm was restarted and then | | | was switched to bilevel ST with a backup rate of 10 bpm, and patient | | | ended with the 5 level-ST at "7/13 cm H2O" ? With backup rate of 12 | | | BPM. It was thought that the bilevel ST was needed because patient | | | had central alveolar hypoventilation. TCO2 or EtCO2 was not | | | mentioned in any of the sleep studies. Download shows that patient | | | is on bilevel-ST at 16/11 cm H2O with a breath rate of 12 BPM. | | | Detailed report shows that AHI has been elevated with occasional | | | maximum at 40.She has not used the machine for the past 5-6 | | | months.BMI: 28.8 Technical Information: Please see technical data | | | which is attached. Definitions (The AASM Manual for the Scoring of | | | Sleep and Associated Events, Version 2.4; 2017): Apnea: There is a | | | drop in the peak signal excursion by 90% or greater of pre-event | | | baseline using an oronasal thermal sensor (diagnostic study), PAP | | | device flow (titration study), or an alternative apnea sensor | | | (diagnostic study); the duration of the 90% or greater drop in sensor | | | signal is 10 seconds or longer. Obstructive Apnea: Event associated | | | with continued or increased inspiratory effort throughout the entire | | | period of absent airflow. Central Apnea: Event associated with | | | absent inspiratory effort throughout the entire period of absent | | | airflow. Mixed Apnea: Event associated with absent inspiratory | | | effort in the initial portion of the event followed by resumption of | | | inspiratory effort during the second portion of the event. Hypopnea: | | | Nasal pressure excursion drop by 30% or more from baseline, lasting at | | | lease 10 seconds and 90% of the event's duration meets this amplitude | | | criteria. This is associated with a 4% or greater desaturation from | | | pre-baseline Respiratory Event Related Arousal: A sequence of breaths | | | lasting 10 seconds or longer characterized by increasing respiratory | | | effort or by flattening of the inspiratory portion of the nasal | | | pressure (diagnostic study) or PAP device flow (titration study) | | | waveform leading to arousal from sleep when the sequence of breaths | | | does not meet criteria for an apnea or hypopnea. RELEVANT | | | MEDICATIONS:ziprasidone, prednisone, gabapentin. SUBJECTIVE:The | | | patient rated sleep quality during sleep study as worse. She felt " | | | she had a smaller episodes like the last two episodes that landed her | | | in the hospital". Patient stated that she had difficulty with her own | | | fullface mask, so she was fitted with a small and medium airtouch f20 | | | mask and she preferred the medium mask because the small mask put | | | pressure on her nostrils. SLEEP ARCHITECTURE AND EEG:? Total sleep | | | time was 318.5 minutes. Sleep efficiency was 84.8.% and was normal.? | | | Sleep onset latency was 6 minutes and was normal.? REM latency was | | | 111 minutes and was increased.? Percent of time in stage N3 was 13.8 % | | | and was normal.? Percent of time in stage REM was 36.9 % and was | | | increased.? Arousal Index for this titration study was 23.2./hour and | | | was mildly increased, with 8.3 respiratory arousals/hour and 14.9 | | | spontaneous arousals/hour. RESPIRATORY:? Bilevel-S was titrated at | | | pressures ranging from 10/5 cmH2O to 19/15 cmH2O. patient spent entire | | | study time in supine position. Pressure of 13/8 cm H2O appeared to | | | control obstructive sleep apnea in supine non-REM sleep. In REM | | | sleep, patient started to have numbers of obstructive sleep apnea at | | | pressure of 13/8 cm H2O, and pressure was increased. Pressure of | | | 16/11 cm H2O appeared to relatively control obstructive sleep apnea in | | | supine REM sleep. Pressure continued to be increased for | | | occasional snoring and presumed obstructive events. It did not | | | appear to make any positive difference, and made Cflow look even | | | worse. Also, patient started to have paradoxical breathing as | | | pressure was increased. Somewhere in the middle of the study | | | patient woke up, calling with the urgency, stated that "she woke like | | | she did last year " panic with stroke like symptoms". Her SPO2 was | | | above 90% and cflow was normal right before she woke up. ? Medium | | | Airtouch F20 was found to be adequate. ? Mask air leak appeared to be | | | increased as the pressure increased. ? Oxygen was NOT added.? Patient | | | spent 100% of total sleep time in supine position. ? Wake SPO2 was in | | | the high 90%. Mean SpO2 was 96 %, brennon SpO2 was 91 %, and amount of | | | total sleep time spent below SpO2 of 90% was 0 %. 4% Oxygen | | | Desaturation Index (VICTOR MANUEL) was 4.2. and was notelevated.? Transcutaneous | | | CO2 ranged 35-37 mmHg during supine wake, and remained between 38 and | | | 40 mmHg for entire study time.? There were occasional central apneas. | | | Tor-Stone breathing was not observed. LIMB MOVEMENTS:? Total | | | sleep periodic limb movement index was 0 and was not elevated.. | | | EKG:Normal sinus rhythm was noted with mean heart rate of 75, 63, 69 | | | beats per minute during wake, non-REM sleep and REM sleep | | | respectively.. INTERPRETATION: - Previously diagnosed obstructive | | | sleep apnea, moderate persistent asthma, and COPD, with CPAP | | | intolerance, has been off of her bilevel-ST machine for a few months, | | | and has been told that she needed nocturnal supplemental oxygen bleed | | | in to her machine. - This titration study was satisfactory. CPAP was | | | not tried as patient had previously showed CPAP intolerance. | | | Bilevel-S was titrated up from 10/5 cm H2O to 19/15 cm H2O . | | | Pressure of 13/8 cm H2O appeared to control obstructive sleep apnea in | | | supine non-REM sleep. In REM sleep, patient started to have numbers | | | of obstructive sleep apnea at pressure of 13/8 cm H2O, and pressure | | | was increased. Pressure of 16/11 cm H2O appeared to relatively | | | control obstructive sleep apnea in supine REM sleep. Pressure | | | continued to be increased for occasional snoring and presumed | | | obstructive events. It did not appear to [...] in those | | | sleep studies. - sleep efficiency was slightly decreased, and sleep | | | was mildly fragmented. - Periodic limb movement index was not | | | elevated. RECOMMENDATIONS: A trial of bilevel-S at 15/11 cm H2O with | | | a medium airtouch F20 mask recommended. Since based on patient's | | | history and previous sleep studies I was expecting hypoventilation | | | during sleep and hypoxemia, we can also perform a repeat diagnostic | | | polysomnography and reevaluate her sleep-related breathing disorder. | | | I personally called the patient and discussed the results with her. | | | She thinks that she needs her CPAP machine because without it she | | | has excessive daytime sleepiness and drowsy driving. She agrees with | | | a trial of bilevel-s, and she understands that her sleep study didn't | | | show that she needed nocturnal supplemental oxygen. We decided not | | | to perform a diagnostic study at this time.- RTC in 4-5 weeks and | | | sooner if needed. Meghan Garcia MD Portions of this chart may have | | | been created with [employer] voice recognition software. Occasional | | | wrong-word or | | | | | | sound-alike | | | substitutions may have occurred due to the inherent limitations of | | | voice recognition software. Please read the chart carefully and | | | recognize, using context, where these substitutions have occurred. | | | | | |INTERPRETATION: | | | | | |- Previously diagnosed obstructive sleep apnea, moderate | | |persistent asthma, and COPD, with CPAP intolerance, has been off | | |of her bilevel-ST machine for a few months, and has been told | | |that she needed nocturnal supplemental oxygen bleed in to her | | |machine. | | | | | |- This titration study was satisfactory. CPAP was not tried as | | |patient had previously showed CPAP intolerance. Bilevel-S was | | |titrated up from 10/5 cm H2O to 19/15 cm H2O . Pressure of 13/8 | | |cm H2O appeared to control obstructive sleep apnea in supine | | |non-REM sleep. In REM sleep, patient started to have numbers of | | |obstructive sleep apnea at pressure of 13/8 cm H2O, and pressure | | |was increased. Pressure of 16/11 cm H2O appeared to relatively | | |control obstructive sleep apnea in supine REM sleep. Pressure | | |continued to be increased for occasional snoring and presumed | | |obstructive events. It did not appear to make any positive | | |difference, and made Cflow look even worse. Also, patient | | |started to have paradoxical breathing as pressure was increased. | | |Somewhere in the middle of the study patient woke up, calling | | |with the urgency, stated that "she woke like she did last year " | | |panic with stroke like symptoms". Her SPO2 was above 90% and | | |cflow was normal right before she woke up. I suspect higher | | |pressures, mask leak, and anxiety caused these symptoms. Entire | | |study time was performed on room air and supplemental oxygen was | | |not added. Wake SPO2 was in the high 90%. Mean SpO2 was 96 %, | | |brennon SpO2 was 91 %, and amount of total sleep time spent below | | |SpO2 of 90% was 0 %. Transcutaneous CO2 ranged 35-37 mmHg during | | |supine wake, and remained between 38 and 40 mmHg for entire study | | |time. Hypoventilation was not observed. Previous sleep study | | |reports(external) mentioned that patient had hypoventilation | | |during sleep, though CO2 was not measured in those sleep studies. | | | | | | | | |- sleep efficiency was slightly decreased, and sleep was mildly | | |fragmented. | | | | | |- Periodic limb movement index was not elevated. | | | | | | | | | | | |RECOMMENDATIONS: | | | | | |A trial of bilevel-S at 15/11 cm H2O with a medium airtouch F20 | | |mask recommended. Since based on patient's history and previous | | |sleep studies I was expecting hypoventilation during sleep and | | |hypoxemia, we can also perform a repeat diagnostic | | |polysomnography and reevaluate her sleep-related breathing | | |disorder. I personally called the patient and discussed the | | |results with her. She thinks that she needs her CPAP machine | | |because without it she has excessive daytime sleepiness and | | |drowsy driving. She agrees with a trial of bilevel-s, and she | | |understands that her sleep study didn't show that she needed | | |nocturnal supplemental oxygen. We decided not to perform a | | |diagnostic study at this time. | | |- RTC in 4-5 weeks and sooner if needed. | | | | | |Meghan Garcia MD | | | | | | | | |Portions of this chart may have been created with [employer] voice | | |recognition software. Occasional wrong-word [...] + + | Meghan Garcia MD - 04/30/2018 9:53 AM PST [facility] | | [place], [place] [address]Llgkoyyr Airway Pressure Titration | | Report on Rosario Malik performed on April 28, 2018.Clinical Information: Rosario Corona | | [place] is a 53 y.o. female with history of COPD, bipolar disorder, hypothyroidism, | | paroxysmal atrial tachycardia, GERD, interstitial cystitis, and mild obstructive sleep | | apnea presenting for issues with her bilevel machine. Rosario states when she was | | hospitalized for fall and weakness in December 2017, she was told that she needed | | bleed-in oxygen into her bilevel machine. She has tried to get her homecare company to | | add the connection part for oxygen to her machine, but it has not happened. Now she only | | uses her 3 per minute of supplemental oxygen at night and she has not been using her | | machine for the past few months. 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 When she was using her machine they were not the | | problem. Discharge summary from ER notes dated 2018 indicates that she had | | an overnight oximetry on her bilateral while she was hospitalized, and noted to have | | residual hypoxemia.She says she was told to stop using her bilevel machine until she is | | able to use the bilevel with oxygen. When I asked her why she used the bilevel machine | | until she can use oxygen and bilevel together, she states that the machine makes her | | waking up with panic attack, feeling that she cannot breathe, and she gets some | | "strokelike symptoms." She says she had this problem one more time before she was | | hospitalized in December 2017. She cannot remember how many sleep studies she has had | | so far. However, she was on CPAP for several years before she was switched to bilevel | | in 2015. I reviewed the notes from Dr. Alarcon in [place], [place]. It | | indicates that patient had CPAP intolerance because of her COPD. She had a diagnostic | | polysomnography on February 13, 2015. Sleep efficiency was 83% and mildly decreased. | | There was 17% of stage R sleep.No comments about the position of sleep. AHI was 5.9. | | Apnea index was 1.2. RDI was 8. Brennon oxygen saturation was 83%. The saturation was | | less than 90% for 25% of time. She had a titration study and April 17, 2015. Sleep | | efficiency was 92%. There was 6% of stage R sleep. Bilevel at 8 over 4 cm was | | restarted and then was switched to bilevel ST with a backup rate of 10 bpm, and patient | | ended with the 5 level-ST at "7/13 cm H2O" ? With backup rate of 12 BPM. It was | | thought that the bilevel ST was needed because patient had central alveolar | | hypoventilation. TCO2 or EtCO2 was not mentioned in any of the sleep studies. Download | | shows that patient is on bilevel-ST at 16/11 cm H2O with a breath rate of 12 BPM. | | Detailed report shows that AHI has been elevated with occasional maximum at 40.She has | | not used the machine for the past 5-6 months.BMI: 28.8Technical Information: Please see | | technical data which is attached.Definitions (The AASM Manual for the Scoring of Sleep | | and Associated Events, Version 2.4; 2017): Apnea: There is a drop in the [...] meet criteria for an apnea or hypopnea. RELEVANT MEDICATIONS:ziprasidone, | | prednisone, gabapentin.SUBJECTIVE:The patient rated sleep quality during sleep study as | | worse. She felt " she had a smaller episodes like the last two episodes that landed her | | in the hospital". Patient stated that she had difficulty with her own fullface mask, so | | she was fitted with a small and medium airtouch f20 mask and she preferred the medium | | mask because the small mask put pressure on her nostrils.SLEEP ARCHITECTURE AND EEG:? | | Total sleep time was 318.5 minutes. Sleep efficiency was 84.8.% and was normal.? Sleep | | onset latency was 6 minutes and was normal.? REM latency was 111 minutes and was | | increased.? Percent of time in stage N3 was 13.8 % and was normal.? Percent of time in | | stage REM was 36.9 % and was increased.? Arousal Index for this titration study was | | 23.2./hour and was mildly increased, with 8.3 respiratory arousals/hour and 14.9 | | spontaneous arousals/hour. RESPIRATORY:? Bilevel-S was titrated at pressures ranging | | from 10/5 cmH2O to 19/15 cmH2O. patient spent entire study time in supine position. | | Pressure of 13/8 cm H2O appeared to control obstructive sleep apnea in supine non-REM | | sleep. In REM sleep, patient started to have numbers of obstructive sleep apnea at | | pressure of 13/8 cm H2O, and pressure was increased. Pressure of 16/11 cm H2O appeared | | to relatively control obstructive sleep apnea in supine REM sleep. Pressure continued | | to be increased for occasional snoring and presumed obstructive events. It did not | | appear to make any positive difference, and made Cflow look even worse. Also, patient | | started to have paradoxical breathing as pressure was increased. Somewhere in the | | middle of the study patient woke up, calling with the urgency, stated that "she woke | | like she did last year " panic with stroke like symptoms". Her SPO2 was above 90% and | | cflow was normal right before she woke up. ? Medium Airtouch F20 was found to be | | adequate. ? Mask air leak appeared to be increased as the pressure increased. ? Oxygen | | was NOT added.? Patient spent 100% of total sleep time in supine position. ? Wake SPO2 | | was in the high 90%. Mean SpO2 was 96 %, brennon SpO2 was 91 %, and amount of total sleep | | time spent below SpO2 of 90% was 0 %. 4% Oxygen Desaturation Index (VICTOR MANUEL) was 4.2. and | | was notelevated.? Transcutaneous CO2 ranged 35-37 mmHg during supine wake, and remained | | between 38 and 40 mmHg for entire study time.? There were occasional central apneas. | | Tor-Stone breathing was not observed.LIMB MOVEMENTS:? Total sleep periodic limb | | movement index was 0 and was not elevated.. EKG:Normal sinus rhythm was noted with mean | | heart rate of 75, 63, 69 beats per minute during wake, non-REM sleep and REM sleep | | respectively.. INTERPRETATION:- Previously diagnosed obstructive sleep apnea, moderate | | persistent asthma, and COPD, with CPAP intolerance, has been off of her bilevel-ST | | machine for a few months, and has been told that she needed nocturnal supplemental | | oxygen bleed in to her machine.- This titration study was satisfactory. CPAP was not | | tried as patient had previously showed CPAP intolerance. Bilevel-S was titrated up from | | 10/5 cm H2O to 19/15 cm H2O . Pressure of 13/8 cm H2O appeared to control obstructive | | sleep apnea in supine non-REM sleep. In REM sleep, patient started to have numbers of | | obstructive sleep apnea at pressure of 13/8 cm H2O, and pressure was increased. | | Pressure of 16/11 cm H2O appeared to relatively control obstructive sleep apnea in | | supine REM sleep. Pressure continued to be increased for occasional snoring and | | presumed obstructive events. It did not appear to make any positive difference, and | | made Cflow look even worse. Also, patient started to have paradoxical breathing as | | pressure was increased. Somewhere in the middle of the study patient woke up, calling | | with the urgency, stated that "she woke like she did last year " panic with stroke like | | symptoms". Her SPO2 was above 90% and cflow was normal right before she woke up. I | | suspect higher pressures, mask leak, and anxiety caused these symptoms. Entire study | | time was performed on room air and supplemental oxygen was not added. Wake SPO2 was in | | the high 90%. Mean SpO2 was 96 %, brennon SpO2 was 91 %, and amount of total sleep time | | spent below SpO2 of 90% was 0 %. Transcutaneous CO2 ranged 35-37 mmHg during supine | | wake, and remained between 38 and 40 mmHg for entire study time. Hypoventilation was | | not observed. Previous sleep study reports(external) mentioned that patient had | | hypoventilation during sleep, though CO2 was not measured in those sleep studies. - | | sleep efficiency was slightly decreased, and sleep was mildly fragmented.- Periodic limb | | movement index was not elevated.RECOMMENDATIONS:A trial of bilevel-S at 15/11 cm H2O | | with a medium airtouch F20 mask recommended. Since based on patient's history and | | previous sleep studies I was expecting hypoventilation during sleep and hypoxemia, we | | can also perform a repeat diagnostic polysomnography and reevaluate her sleep-related | | breathing disorder. I personally called the patient and discussed the results with her. | | She thinks that she needs her CPAP machine because without it she has excessive | | daytime sleepiness and drowsy driving. She agrees with a trial of bilevel-s, and she | | understands that her sleep study didn't show that she needed nocturnal supplemental | | oxygen. We decided not to perform a diagnostic study at this time.- RTC in 4-5 weeks | | and sooner if needed. Meghan Garcia, MDPortions of this chart may have been created with | | [employer] voice recognition software. Occasional wrong-word or | [...]
--- OUTSIDE RECORDS SUMMARY | ~2019-01-15 | XMS | Clinical Summary ---
Demographics + + + | Address | [address] | | | [place] [address] | + + + | Home Phone [...] Author + + + | Author | [employer] (Historical as of | | | 10-10-18) | + + + | Organization | [facility] [employer] (Historical as of | | | 10-10-18) [...] Team Providers + +------+ + | Care Parcel Post Weigher Name | Role | Phone | [...] | | | | type ([facility]) | | | | | | | [...] | | | | type ([facility]) | | | | | | | [...] +------+-------+ + | MEDICARE | MEDICA | [id number] | | | [address] | | | RE | | | | [place] [address] | | | IP-OP | | | | | + +--------+ +------+-------+ + | MEDICAID | MEDICA | [id number] | | | [address] | | | ID | | | | [place] | | | INPT & | | | | [address] | | | OUPT | | | [...] | [birth year] | Home: | [address] | | | al/Fam | | [phone] | [phone] [place] | | | rigoberto | | | [phone] | [address] | + +--------+ +--------+ + +
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
--- OUTSIDE RECORDS SUMMARY | ~2019-01-15 | XMS | Encounter Summary ---
Demographics + + + | Address | [address] | | | [place] [address] | + + + | Home Phone [...] Providers + +------+ + | Care Client Development Consultant Name | Role | Phone [...] | with brief | [address] | [address] | | | | n | loss of | [address] | [place], | | | | | consciousnes | [place], | [place] [address] | | | | | s | [place] [address] | Phone: | | | | | Post-concuss | Phone: | [phone] | | | | | ion vertigo | [phone] | Fax: | | | | | S06.0X9A | Fax: | [phone] | | | | | (ICD-10-CM) | [phone] | | | | | | - [...] + + | 06/05/ | Office | [facility] | Aaron Rodriguez, | Dizziness (Primary | | 2017 | Visit | MED CTR THERAPY PT | MD [address] | Dx); Impaired | | | | OP [address] | [place] | mobility and | | | | [place] | [id number] | activities of daily | | | | [address] | | living; Concussion | | | | [phone] | Lakeshia Cleary, PT | with brief (less | | | | | [address] | than one hour) loss | | | | | [place] | of consciousness; | | | | | [address] | Intractable acute | | | | [...] might be different from t he original. [facility] OP [address] [place] [address] Physical Therapy Daily Treatment Note Date: 06/05/2016 [...] [place] | | | | | | [address] | | | | | | | | +--------+---------+ + + + | 11/24/ | Office | Cardiology | [place], | | | 2020 | Visit | | SINDHU Erickson [address] | | | | | | [place], | | | | | | [place] [address] | | | | | | [phone] | | | | | | | [...]
--- OUTSIDE RECORDS SUMMARY | ~2019-01-15 | XMS | Encounter Summary ---
Demographics + + + | Address | [address] | | | [place] [address] | + + + | Home Phone [...] Team Providers + +------+ + | Care Professor Of Social Work Name | Role | Phone | + +------+ + | Juan Cherry DO | PCP | | + +------+ + Reason for Visit + + + | Reason | Comments | + + + | Chest Pain | | + + + Encounter Details +--------+ + + + + | Date | Type | Department | Care Team | Description | +--------+ + + + + | 04/16/ | Emergency | [facility] | Sonny Cesar MD | Epigastric pain | | 2016 | | MED CTR EMERGENCY | [address] | (Primary Dx); Chest | | | | CENTER [address] | [place] | pain, unspecified | | | | [place], [place] | [address] | chest pain type | | | | [address] | | | | | | [phone] | | | +--------+ + + + [...] + + + | Blood Pressure | 120/88 | 04/16/2015 3:47 PM | | | | | PST | | + + + + + | Pulse | 74 | 04/16/2015 5:02 PM | | | | | PST | | + + + + + | Temperature | 37.4 C (99.3 F) | 04/16/2015 3:47 PM | | | | | PST | | + + + + + | Respiratory Rate | 28 | 04/16/2015 3:47 PM | | | | | PST | | + + + + + | Oxygen Saturation | 86% | 04/16/2015 5:02 PM | | | | | PST | | + + + + + | Inhaled Oxygen | - | - | | | Concentration | | | | + + + + + | Weight | 78.9 kg (174 lb) | 04/16/2015 3:47 PM | | | | | PST | | + + + + + | Height | 157.5 cm (5' 2") | 04/16/2015 3:47 PM | | | | | PST | | + + + + + | Body Mass Index | 31.83 | 04/16/2015 3:47 PM | | | | | PST [...] documented as of this encounter Discharge Instructions Sonny Delgado MD - 04/16/2015Queenie try nitroglycerin for recurrent symptoms Pain medication as needed Rest and fluids Return for worsening symptoms, not improving, other new complaints documented in [...] | | | | | order to [facility]. | | | | | [...] | | | | | [facility]. | | | | | | [...] | | | | | ([facility]) | | | | | [...] [place] | | | | | | [address] | | | | | | | | +--------+---------+ + + + | 11/24/ | Office | Cardiology | [place], | | | 2020 | Visit | | SINDHU Erickson [address] | | | | | | [place], | | | | | | [place] [address] | | | | | | [phone] | | | | | | | | +--------+---------+ + + + + +------+--------+ + + | Name | Type | Priori | Associated Diagnoses | Date/Time | | | | ty | | | + +------+--------+ + + | ED INFORMATION | BALWINDER | Routin | | 04/16/2015 3:48 PM | | EXCHANGE | | e | | PST | + +------+--------+ + + documented as of this encounter Procedures + +--------+ + + + | Procedure Name | Priori | Date/Time | Associated Diagnosis | Comments | | | ty | | | | + +--------+ + + + | CBC W/AUTO | STAT | 04/16/2015 | | Results for this | | DIFFERENTIAL | | 4:18 PM | | procedure are in the | | | | PST | | results section. | + +--------+ + + + | TROPONIN I | STAT | 04/16/2015 | | Results for this | | | | 4:18 PM | | procedure are in the | | | | PST | | results section. | + +--------+ + + + | LIPASE | STAT | 04/16/2015 | | Results for this | | | | 4:18 PM | | procedure are in the | | | | PST | | results section. | + +--------+ + + + | COMPREHENSIVE | STAT | 04/16/2015 | | Results for this | | METABOLIC PANEL | | 4:18 PM | | procedure are in the | | | | PST | | results section. | + +--------+ + + + | ECG 12 LEAD | STAT | 04/16/2015 | | Results for this | | | | 3:51 PM | | procedure are in the | | | | PST | | results section. | + +--------+ + + + | ED INFORMATION | Routin | 04/16/2015 | | | | EXCHANGE | e | 3:48 PM | | | | | | PST | | | + +--------+ + + + documented in this encounter Results Troponin I (04/16/2015 4:18 PM PST) + + + + + [...] | | | | | | [employer] | | | | | [...] [address] | [place] | [phone] | | [facility] | | [address] | | | - LABORATORY | | | | + + + + + Lipase (04/16/2015 4:18 PM PST) + +-------+ + + + | Component | Value | Ref Range | Performed | Pathologist | | | | | At | Signature | + +-------+ + + + | Lipase | 20 | 0 - 60 U/L | [facility] [...] + | [facility] | [address] | [place] | [phone] | | [facility] | | [address] | | | - LABORATORY | | | | + + + + + Comprehensive Metabolic Panel (04/16/2015 4:18 PM PST) + + + + + [...] K | 4.1 | 3.5 - 5.1 | [facility] | | | | | mmol/L | [facility] | | | | | | [facility] | | | | | | CENTER - | | | | | | LABORATORY | | + + + + + + | Cl | 100 | 98 - 109 mmol/L | [facility] | | | | | | [facility] | | | | | | [facility]ICAL | | | | | | CENTER - | | | | | | LABORATORY | | + + + + + + | CO2 | 29 | 24 - 31 mmol/L | [facility] [...] + + + + | Glucose | 93 | 70 - 109 mg/dL | [facility] [...] | | | FILTRATION | mL/min/1.73m2 | [facility] | | | SPANISH | RATE,ESTIMATED | | MEDICAL | | | | mL/min/1.38h2Ekgr than | | CENTER - | | [...] + + + + | Albumin | 3.4 | 3.2 - 5.0 g/dL | [facility] [...] + + + + | AST | 16 | 10 - 42 U/L | [facility] | | | | | | [facility] | | | | | | MEDICAL | | | | | | CENTER - | | | | | | LABORATORY | | + + + + + + | ALT | 11 | 6 - 45 U/L | [facility] | | | | | | [facility] | | | | | | MEDICAL | | | | | | CENTER - | | | | | | LABORATORY | | + + + + + + | Alkaline | 73 | 40 - 110 U/L | [facility] | | | Phosphatase | | | [facility] | | | | | | MEDICAL | | | | | | CENTER - | | | | | | LABORATORY | | + + + + + + | Globulin | 2.7 | g/dL | [facility] | | | | | | [facility] | | | | | | MEDICAL | | | | | | CENTER - | | | | | | LABORATORY | | + + + + + + | Albumin/Jewell | 1.3 | | [facility] | | | bulin Ratio | | | [facility] | | | | | | MEDICAL | | | | | | CENTER - | | | | | | LABORATORY | | + + + + + + | BUN/Creatin | 10.6 | | [facility] | | | ine [...] [address] | [place] | [phone] | | [facility] | | [address] | | | - LABORATORY | | | | + + + + + CBC w/ Auto Differential (04/16/2015 4:18 PM PST) + + + + + + | Component | Value | Ref Range | Performed | Pathologist | | | | | At | Signature | + + + + + + | WBC | 12.9 (H) | 4.0 - 11.0 K/uL | [facility] | | | | | | [facility] | | | | | | MEDICAL | | | | | | CENTER - | | | | | | LABORATORY | | + + + + + + | RBC | 4.84 | 3.70 - 5.20 | [facility] | | | | | M/uL | [facility] | | | | | | MEDICAL | | | | | | CENTER - | | | | | | LABORATORY | | + + + + + + | Hemoglobin | 14.1 | 11.5 - 16.0 | [facility] | | | | | g/dL | [facility] | | | | | | MEDICAL | | | | | | CENTER - | | | | | | LABORATORY | | + + + + + + | Hematocrit | 41.3 | 34.0 - 47.0 % | [facility] | | | | | | [facility] | | | | | | MEDICAL | | | | | | CENTER - | | | | | | LABORATORY | | + + + + + + | MCV | 85.5 | 83.0 - 101.0 fL | [facility] | | | | | | [facility] | | | | | | MEDICAL | | | | | | CENTER - | | | | | | LABORATORY | | + + + + + + | MCH | 29.2 | 28.0 - 35.0 pg | [facility] [...] + + + + | Platelet | 444 (H) | 140 - 440 K/uL | [...] + + + + | % | 63.3 | 45.0 - 82.0 % | [facility] | | | Neutrophils | | | [facility] | | | | | | MEDICAL | | | | | | CENTER - | | | | | | LABORATORY | | + + + + + + | % | 29.3 | 20.0 - 45.0 % | [facility] | | | Lymphocytes | | | [facility] | | | | | | MEDICAL | | | | | | CENTER - | | | | | | LABORATORY | | + + + + + + | % Monocytes | 5.3 | 4.0 - 12.0 % | [facility] | | | | | | [facility] | | | | | | MEDICAL | | | | | | CENTER - | | | | | | LABORATORY | | + + + + + + | % | 0.8 | 0.0 - 5.0 % | [facility] [...] + + + + | Absolute | 8.20 | 1.80 - 8.50 | [facility] | | | Neutrophils | | K/uL | [facility] | | | | | | MEDICAL | | | | | | CENTER - | | | | | | LABORATORY | | + + + + + + | Absolute | 3.80 (H) | 0.60 - 3.20 | [facility] [...] + | [facility] | [address] | [place] | [phone] | | [facility] | | [address] | | | - LABORATORY | | | | + + + + + ECG 12 lead (04/16/2015 3:51 PM PST) + + + + + + | Component | Value | Ref Range | Performed | Pathologist | | | | | At | Signature | + + + + + + | VENTRICULAR | 95 | BPM | [facility] | | | RATE EKG | | | | | + + + + + + | ATRIAL RATE | 95 | BPM | [facility] | | [...] + + + + | Q-T | 457 | ms | [facility] | | | INTERVAL | | | | | | (CORRECTED) | | | | | + + + + + + | P WAVE AXIS | 25 | degrees | [facility] | | [...] MUSE | | | ION TEXT | rhythmSubtle inferior ST | | | | | | elevation:Consider | | | | | | ischemia/infarctionWhen | | | | | | compared with ECG of | | | | | | 12-APR-2015 20:17,No | | | | | | significant change was | | | | | | foundConfirmed by | | | | | | RAFA WELLS MD ([id number]) | | | | | | on 04/17/2015 6:09:05 PM | | | | + + [...] Primary Abdominal pain, epigastric | + + | Chest pain, unspecified chest pain type | + + documented in this encounter Administered Medications + +--------+ +--------+------+------+ | Medication Order | MAR | Action | Dose | Rate | Site | | | Action | Date | | | | + +--------+ +--------+------+------+ | aluminum & magnesium | Given | 04/16/19 | 30 mLs | | | | hydroxide-simethicone (MAALOX | | 16 4:17 | | | | | PLUS REGULAR STRENGTH) 200-200-20 | | PM PST | | | | | mg/5 mL suspension 30 mL 30 mL, | | | | | | | Oral, ONCE PRN, Indigestion, | | | | | | | Pain, Starting 04/16/15 at | | | | | | | 1555, For 1 dose, Mix lidocaine | | | | | | | and Maalox. Ashok garcia., | | | | | | + +--------+ +--------+------+------+ +---+---+ | | | +---+---+ + +-------+ +-------+---+---+ | famotidine (PEPCID) injection | Given | 04/16/19 | 20 mg | | | | 20 mg 20 mg, Intravenous, ONCE, | | 16 4:14 | | | | | 04/16/15 at 1600, For 1 dose, | | PM PST [...] | | +---+---+ + +-------+ +--------+---+---+ | HYDROmorphone (DILAUDID) | Given | 02/21/20 | 0.5 mg | | | | injection 0.5 mg 0.5 mg, | | 16 4:13 | | | | | Intravenous, ONCE, Spurger 04/16/15 at | | PM PST | | | | | 1600, For 1 dose | | | | | | + +-------+ +--------+---+---+ +---+---+ | | | +---+---+ + +-------+ +--------+---+---+ | HYDROmorphone (DILAUDID) | Given | 04/16/19 | 0.5 mg | | | | injection 0.5 mg 0.5 mg, | | 16 4:45 | | | | | Intravenous, ONCE, Spurger 04/16/15 at | | PM PST | | | | | 1645, For 1 dose | | | | | | + +-------+ +--------+---+---+ +---+---+ | | | +---+---+ + +-------+ +--------+---+---+ | lidocaine (XYLOCAINE) 2% | Given | 04/16/19 | 10 mLs | | | | viscous solution 10 mL 10 mL, | | 16 4:17 | | | | | Oral, ONCE PRN, Pain, Starting | | PM PST | | | | | 04/16/15 at 1555, For 1 dose, | | | | | | | Mix lidocaine and MAALOX. Shake | | | | | | | well., | | | | | | + +-------+ +--------+---+---+ +---+---+ | | | +---+---+ + +-------+ +------+---+---+ | ondansetron (ZOFRAN) injection | Given | 04/16/19 | 4 mg | | | | 4 mg 4 mg, Intravenous, ONCE, | | 16 4:13 | | | | | 04/16/15 at 1600, For 1 dose | | PM PST | | | | + +-------+ +------+---+---+ +---+---+ | | | +---+---+ + +---------+ +---------+-------+---+ | sodium chloride 0.9% (NS) bolus | New Bag | 04/16/19 | 500 mLs | 500 | | | 500 mL 500 mL, Intravenous, | | 16 4:13 | | mL/hr | | | Administer over 1 Hours, ONCE, | | PM PST | | | | | 04/16/15 at 1600, For 1 dose | | | | | | + +---------+ +---------+-------+---+ +---+---+ | | | +---+---+ documented in this encounter
--- OUTSIDE RECORDS SUMMARY | ~2019-01-15 | XMS | Encounter Summary ---
Demographics + + + | Address | [address] | | | [place] [address] | + + + | Home Phone [...] Team Providers + +------+ + | Care Ux Architect Name | Role | Phone | [...] [address] | | | | | [place], | [place], | | | | | [place] [address] | [place] [address] | | | | | [phone] | [phone] | | | | | | | [...] [place] | | | | | | [address] | | | | | | | | +--------+---------+ + + + | 11/24/ | Office | Cardiology | [place], | | | 2019 | Visit | | SINDHU Erickson [address] | | | | | | [place], | | | | | | [place] [address] | | | | | | [phone] | | | | | | | [...]
--- OUTSIDE RECORDS SUMMARY | ~2019-01-15 | XMS | Encounter Summary ---
Demographics + + + | Address | [address] | | | [place] [address] | + + + | Home Phone [...] Providers + +------+ + | Care Video Surveillance Technician Name | Role | Phone | [...] Alonso MD | | | | | [place], | | | | | | [place] [address] | | | | | | [phone] | | | +--------+--------+ + + + [...] [place] | | | | | | [address] | | | | | | | | +--------+---------+ + + + | 11/24/ | Office | Cardiology | [place], | | | 2019 | Visit | | SINDHU Erickson [address] | | | | | | [place], | | | | | | [place] [address] | | | | | | [phone] | | | | | | | | +--------+---------+ + + + documented as of this encounter Visit Diagnoses Not on filedocumented in this encounter"
--- OUTSIDE RECORDS SUMMARY | ~2019-01-15 | XMS | Encounter Summary ---
Demographics + + + | Address | [address] | | | [place] [address] | + + + | Home Phone [...] Team Providers + +------+ + | Care Explosive Operator Bomb Name | Role | Phone | + +------+ + PCP | Unavailable | + +------+ + Encounter Details +--------+ + + + + | Date | Type | Department | Care Team | Description | +--------+ + + + + | 03/23/ | Hospital | [facility] | Rocky Rodriguez | | | 2010 | Encounter | MED CTR EMERGENCY | MD Kyler [address] | | | | | CENTER [address] | [address] [facility] | | | | | [place], [place] | [place] [address] | | | | | [address] | [phone] | | | | | [phone] | | | +--------+ + + + [...] [place] | | | | | | [address] | | | | | | | | +--------+---------+ + + + | 11/24/ | Office | Cardiology | [place], | | | 2019 | Visit | | SINDHU Erickson [address] | | | | | | [place], | | | | | | [place] [address] | | | | | | [phone] | | | | | | | | +--------+---------+ + + + documented as of this encounter Visit Diagnoses Not on filedocumented in this encounter"
--- OUTSIDE RECORDS SUMMARY | ~2019-01-15 | XMS | Encounter Summary ---
Demographics + + + | Address | [address] | | | [place] [address] | + + + | Home Phone [...] Providers + +------+ + | Care Resource Room Special Education Teacher Name | Role | [...] | Concussion | Aaron Kim MD | Family Protection Specialist [address] | | | Required | | with brief | [address] | [place] | | | | | loss of | [address] | [place], [place] | | | | | consciousnes | [place], | [address] | | | | | s Word | [place] [address] | Phone: | | | | | finding | Phone: | [phone] | | | | | difficulty | [phone] | Fax: | | | | | S06.0X9A | Fax: | [phone] | | | | | (ICD-10-CM) | [phone] | | | | | | - [...] + + | 06/06/ | Hospital | [facility] | Aaron Rodriguez, | Concussion with | | 2017 | Encounter | MED CTR SPEECH | MD [address] | brief (less than one | | | | THERAPY [address] | [place] | hour) loss of | | | | [place], | [address] | consciousness | | | | [place] [address] | | (Primary Dx) | | | | [phone] | Kathi Soto, | | | | [...] | 0 | 10/13/19 | | | [id number] | mouth as needed. | | | 16 | 7 | | -Cod [id number] MG | | | | | | [...] Speech Pathologist - 06/06/2016 5:52 PM PDT [facility] [address] [facility] [address] Speech Therapy Daily Treatment Note Date: 06/06/2016 Patient Information Patient Name: Rosario Malik Date of : 1965 Age: 51 y.o. Encounter Diagnoses Code Name Primary? S06.0X9A Concussion with brief (less than one hour) loss of consciousness Yes Date of Onset: 03/15/2016 Referring Provider: Aaron Rodriguez MD Rehab Precautions Office Visit from 05/01/2016 in [facility] THERAPY PT OP Rehab Precautions Precautions None Rehab Learning Style WSM COMPLAINT COORDINATOR OP EVAL from 05/16/2016 in [facility] SPEECH THERAPY Office V isit from 05/01/2016 in [facility] THERAPY PT OP Learning Style Patient's Optimum Learning Style observation, performance of task listening, reading, ob servation, performance of task Today's Treatment Start Time: 1115 Stop time: 1200 Duration: 45 minutes Timed Treatment Codes: minutes # of Speech Visits to Date: 3 Pain Assessment: Pain Scale Used: NUMERIC Pain Rating Pre Assessment: 0 Subjective:Pt arrived to ST with portable O2 with NC in place. [...] | | | | [place] | | | | | | [address] | | | | | | | | +--------+---------+ + + + | 11/24/ | Office | Cardiology | [place], | | | 2020 | Visit | | SINDHU Erickson [address] | | | | | | [address] [place], | | | | | | [place] [address] | | | | | | [phone] | | | | | | | [...]
--- OUTSIDE RECORDS SUMMARY | ~2019-01-15 | XMS | Encounter Summary ---
Demographics + + + | Address | [address] | | | [place] [address] | + + + | Home Phone [...] Team Providers + +------+ + | Care Redeye Gunner Name | Role | Phone | + [...] | (Primary Dx) | | | | [address] | [address] | | | | | [phone] | | | +--------+---------+ + + + [...] [place] | | | | | | [address] | | | | | | | | +--------+---------+ + + + | 11/24/ | Office | Cardiology | [place], | | | 2019 | Visit | | SINDHU Erickson [address] | | | | | | [place], | | | | | | [place] [address] | | | | | | [phone] | | | | | | | | +--------+---------+ + + + documented as of this encounter Results XR Foot Left 3 + Vw (01/07/2013 2:30 PM PST) + + | Specimen | + + | | + + + + + | Narrative | Performed At | + + + | [facility] | [place] | | Department [address] [facility] | [facility] | | [ rep [address]] [ rep [facility] | | st zip] Signed | - IMAGING | | | | | Patient Name: JADYN SCHMITZ | | | Physician: FRANCA : 1965 Age: 47 Sex: F Unit | | | #: [id number] Exam Date: 01/07/13 Location: | | | [facility].IMG Report #: [id number] Page: | | | %(RAD)RES..mtdd.print.filter("pg") of %(RAD) | | | RES..mtdd.print.filter("tpg") | | | | | | Accession Number: [id number] | | | LEFT FOOT, 01/07/2013 CLINICAL [...] Transcribed | | | Date/Time: 01/07/2013 15:01 Senior Network Security Engineer: | | | <<Signature on File>> | | | Kobe | | | MD Tor01/07/13 [id number] <Electronically signed by Kobe Lentz MD> | | | Kobe Lentz MD 01/07/13 1430 Senior Network Security Engineer: You.Doyariel | | | Vuuvmqczesqfp73/14/13 1501 Lencho Astorga MD | | + + + + + + + + | Performing | Address | City/State/Zipcode | Phone Number | | Organization | | | | + + + + + | [facility] | [address] | [place] | [phone] | | [facility] | | [address] | | | - IMAGING | | | | + + + + + documented in this encounter Visit Diagnoses + + | Diagnosis | + + | Contusion of foot including toes - Primary Contusion of foot | + + documented in this encounter
--- OUTSIDE RECORDS SUMMARY | ~2019-01-15 | XMS | Encounter Summary ---
Demographics + + + | Address | [address] | | | [place] [address] | + + + | Home Phone [...] Team Providers + +------+ + | Care Bi Data Modeler Name | Role | Phone | [...] Alonso MD | | | | | [place], | | | | | | [place] [address] | | | | | | [phone] | | | +--------+--------+ + + + [...] [place] | | | | | | [address] | | | | | | | | +--------+---------+ + + + | 11/24/ | Office | Cardiology | [place], | | | 2019 | Visit | | SINDHU Erickson [address] | | | | | | [place], | | | | | | [place] [address] | | | | | | [phone] | | | | | | | | +--------+---------+ + + + documented as of this encounter Visit Diagnoses Not on filedocumented in this encounter"
--- OUTSIDE RECORDS SUMMARY | ~2019-01-15 | XMS | Encounter Summary ---
Demographics + + + | Address | [address] | | | [place] [address] | + + + | Home Phone [...] + +------+ + | Care Motion Picture Actor Name | Role | Phone | + +------+ + PCP | Unavailable | + +------+ + Encounter Details +--------+ + + + + | Date | Type | Department | Care Team | Description | +--------+ + + + + | 08/25/ | [facility] | [facility] | | | | 2009 | Encounter | MED CTR XRAY [address] | | | | | | [place] | | | | | | [place] [address] | | | | | | [phone] | | | +--------+ + + + [...] [place] | | | | | | [address] | | | | | | | | +--------+---------+ + + + | 11/24/ | Office | Cardiology | [place], | | | 2020 | Visit | | SINDHU Erickson [address] | | | | | | [place], | | | | | | [place] [address] | | | | | | [phone] | | | | | | | | +--------+---------+ + + + documented as of this encounter Visit Diagnoses Not on filedocumented in this encounter"
--- OUTSIDE RECORDS SUMMARY | ~2019-01-15 | XMS | Encounter Summary ---
Demographics + + + | Address | [address] | | | [place] [address] | + + + | Home Phone [...] Team Providers + +------+ + | Care Refiner Operator Name | Role | Phone | + +------+ + | Juan Cherry DO | PCP | | + +------+ + Encounter Details +--------+ + + + + | Date | Type | Department | Care Team | Description | +--------+ + + + + | 08/06/ | Hospital | [facility] [place] [facility] | Conversion | Unknown cause of | | 2017 | Encounter | CONVERSION DEP [address] | Transaction, | injury, initial | | | | [address] | Provider Unknown | encounter | | | | [place] | [phone] | | | | | [address] | | | | | | [phone] | | | +--------+ + + + [...] [place] | | | | | | [address] | | | | | | | | +--------+---------+ + + + | 11/24/ | Office | Cardiology | [place], | | | 2019 | Visit | | SINDHU Erickson [address] | | | | | | [place], | | | | | | [place] [address] | | | | | | [phone] | | | | | | | [...]
--- OUTSIDE RECORDS SUMMARY | ~2019-01-15 | XMS | Encounter Summary ---
Demographics + + + | Address | [address] | | | [place] [address] | + + + | Home Phone [...] Providers + +------+ + | Care Pipe Supervisor Name | Role | Phone | [...] + + | 04/03/ | Office | [facility] | [place], | Abnormal stress test | | 2017 | Visit | CARDIOLOGY [address] | SINDHU Erickson [address] | (Primary Dx); | | | | [place], | [place], | Paroxysmal atrial | | | | [place] [address] | [place] [address] | tachycardia (HCC) | | | | [phone] | [phone] | | | | | | | [...] 4 hours as needed. 360 mL 5 Tbwalbsjyn-LTDT-Jwif-Cod 12-646-30-30 MG CAPS Take 1 capsule by mouth [...] PARTNERS. 1 each 0 Respiratory Therapy Supplies [facility] Change CPAP back to 11-14 cm H2O. All necessary suppl ies. No oxygen bleed in. Diagnosis Code(s)327.23. Length of Need: Lifetime. Please send orde r to [facility]. This is not a new order, just [...] longer present Confirmed by RAFA WELLS MD ([id number]) on 08/06/2015 9:42:29 AM LAB RESULTS reviewed [...] She is in a class II of [employer] on functional class. There is [...] this chart may have been created with Studio Modern[employer] voice recognition software. Occasi onal wrong-word or [...] [place] | | | | | | [address] | | | | | | | | +--------+---------+ + + + | 11/24/ | Office | Cardiology | [place], | | | 2019 | Visit | | SINDHU Erickson [address] | | | | | | [place], | | | | | | [place] [address] | | | | | | [phone] | | | | | | | [...]
--- OUTSIDE RECORDS SUMMARY | ~2019-01-15 | XMS | Encounter Summary ---
Demographics + + + | Address | [address] | | | [place] [address] | + + + | Home Phone [...] + +------+ + | Care Silk Screen Printer Machine Name | Role | Phone | [...] + + | 09/09/ | Emergency | [facility] | Guru Cárdenas, | Epigastric pain | | 2017 | | MED CTR EMERGENCY | MD [address] | (Primary Dx) | | | | CENTER [address] | [facility] [place] | | | | | [place] | [place] [address] | | | | | [address] | [phone] | | | | | [phone] | | | +--------+ + + + [...] be sent through Care Everywhere.GASTRITIS (ADUL T) (CAMEROONIAN)documented in this encounter Medications at Time of [...] | 0 | 10/13/19 | | | Wjwovrdfjs-TEES-Kvly | mouth as needed. | | | 16 | 7 | | -Cod 82-544-86-30 MG | | | | | | [...] [place] | | | | | | [address] | | | | | | | | +--------+---------+ + + + | 11/24/ | Office | Cardiology | [place], | | | 2019 | Visit | | SINDHU Erickson [address] | | | | | | [place], | | | | | | [place] [address] | | | | | | [phone] | | | | | | | [...] + +--------+ + + + | EXTRA MNA TOP | STAT | 09/09/2016 | | [...] W?MRN: | | | | | | [id number] | | | [id number] | | | his | | | [...] ST. | [address] | [place] | [phone] | | [facility] | | [address] | | | - LABORATORY | | [...] mL/min/1.73m2 | [facility] | | | PRYDEINIG | RATE,ESTIMATED | | MEDICAL | | | | mL/min/1.12s8Wwxs than | | CENTER - | | [...] Ratio | appended report. These | | [facility] | | | | results have been [...] [address] | [place] | [phone] | | [facility] | | [address] | | | - LABORATORY | | [...] + | [facility] | [address] | [place] | [phone] | | [facility] | | [address] | | | - LABORATORY | | [...] - 1.030 | [facility] | | | [place] | | | [facility] | | [...] [address] | [place] | [phone] | | [facility] | | [address] | | | - LABORATORY | | [...] [address] | [place] | [phone] | | [facility] | | [address] | | | - LABORATORY | | [...] ST. | [address] | [place], [place] | [phone] | | [facility] | | [address] | | | - LABORATORY | | [address] | [place] | [phone] | | [facility] | | [address] | | | - LABORATORY | | [...] [address] | [place] | [phone] | | [facility] | | [address] | | | - LABORATORY | | [...] ST. | [address] | [place], [place] | [phone] | | [facility] | | [address] | | | - LABORATORY | | [...]
--- OUTSIDE RECORDS SUMMARY | ~2019-01-15 | XMS | Encounter Summary ---
Demographics + + + | Address | [address] | | | [place] [address] | + + + | Home Phone [...] Providers + +------+ + | Care Gas Brazer Name | Role | Phone | + [...] | Concussion | Aaron Kim MD | Stewardesses Teacher [address] | | | Required | | with brief | [address] | [place] | | | | | loss of | [address] | [place], [place] | | | | | consciousnes | [place], | [address] | | | | | s Word | [place] [address] | Phone: | | | | | finding | Phone: | [phone] | | | | | difficulty | [phone] | Fax: | | | | | [phone] | Fax: | [phone] | | | | | (ICD-10-CM) | [phone] | | | | | | - [...] + + | 09/17/ | Hospital | [facility] | Aaron Rodriguez, | Word finding | | 2017 | Encounter | MED CTR SPEECH | MD [address] [facility] | difficulty (Primary | | | | THERAPY [address] | [place] | Dx); Impaired | | | | [place], | [address] | memory; Concussion | | | | [place] [address] | | with brief (less | | | | [phone] | Kathi Soto, | than one hour) [...] | 0 | 10/13/19 | | | Qjumiusnbb-HNPO-Oyet | mouth as needed. | | | 16 | 7 | | -Cod 40-674-83-30 MG | | | | | | [...] Speech Pathologist - 09/19/2016 2:57 PM PDT [facility] SPEECH THERAPY [address] [place] [address] Speech Therapy Discharge Note Date: 09/17/2016 Patient Information Patient Name: Rosario Malik Date of : 1965 Age: 51 y.o. History Encounter Diagnoses Code Name Primary? R47.89 Word finding difficulty Yes R41.3 Impaired memory S06.0X9A Concussion with brief (less than one hour) loss of consciousness Date of Onset: 03/15/2016 Referring Provider: Aaron Rodriguez MD Rehab Precautions Flowsheet Row Office Visit from 05/01/2016 in [facility] THERAPY PT OP Rehab Precautions Precautions None Rehab Learning Style Flowsheet Row [facility] CYANIDE FURNACE OPERATOR OP EVAL from 05/16/2016 in [facility] SPEECH THERAPY O ffice Visit from 05/01/2016 in [facility] THERAPY PT OP Learning Style [...] re: these concerns. did provide resources to [facility]. At this time Rosario stat es [...] Patient Caregiver's Ability to Manage Condition: 4 CYANIDE FURNACE OPERATOR G-Codes Functional Assessment Tool Used: NOMS Score: 5 - The individual consistently requires minimal cues to recall or use external dominique ry aids for complex and novel information. The individual consistently requires minimal cue s to plan and follow through on complex future events (e.g. menu planning and meal preparati on, planning a constitution party, etc.). Functional Limitations: Memory Memory Current [...] From: 08/16/2016 Certification To: 09/19/16 Treatment Plan/Interventions 42108 - Cognitive [id number] - Cognitive [id number] - Speech/Hearing Treatment Patient and/or family has [...] | | | | | [facility] [place] | | | | | | [address] | | | | | | | | +--------+---------+ + + + | 11/24/ | Office | Cardiology | [place], | | | 2019 | Visit | | SINDHU Erickson [address] | | | | | | [place], | | | | | | [place] [address] | | | | | | [phone] | | | | | | | [...]
--- OUTSIDE RECORDS SUMMARY | ~2019-01-15 | XMS | Encounter Summary ---
Demographics + + + | Address | [address] | | | [place] [address] | + + + | Home Phone [...] Team Providers + +------+ + | Care Metal Bumper Name | Role | Phone | + [...] [address] | | | | | [place], | [place], | | | | | [place] [address] | [place] [address] | | | | | [phone] | [phone] | | | | | | | [...] | | | | | | [place], | | | | | | [place] [address] | | | | | | [phone] | | | | | | | | +--------+---------+ + + + documented as of this encounter Visit Diagnoses Not on filedocumented in this encounter"
--- OUTSIDE RECORDS SUMMARY | ~2019-01-15 | XMS | Encounter Summary ---
Demographics + + + | Address | [address] | | | [place] [address] | + + + | Home Phone [...] Team Providers + +------+ + | Care Emblem Cutter Name | Role | Phone | [...] | MED CTR THERAPY PT | INDUSTRIAL YARD BRAKE COUPLER [address] | | | | | OP [address] | [place], [place] | | | | | [place], [place] | [address] | | | | | [address] | [phone] | | | | | [phone] | | | +--------+ + + + [...] this encounter Progress Notes Janey Low, INDUSTRIAL YARD BRAKE COUPLER - 05/25/2013 9[facility] OP [address] [place] [address] Cancellation/No Show Date: 05/25/2013 Patient Information Patient [...] [place] | | | | | | [id number] | | | | | | | | +--------+---------+ + + + | 11/24/ | Office | Cardiology | [place] | | | 2019 | Visit | | SINDHU Erickson [address] | | | | | | [place] | | | | | | [place] [address] | | | | | | [phone] | | | | | | | | +--------+---------+ + + + documented as of this encounter Visit Diagnoses Not on filedocumented in this encounter"
--- OUTSIDE RECORDS SUMMARY | ~2019-01-15 | XMS | Encounter Summary ---
Demographics + + + | Address | [address] | | | [place] [address] | + + + | Home Phone [...] Organization | [facility] | | | and [...] Team Providers + +------+ + | Care Esl Tutor Name | Role | Phone | [...] | | | | [facility] | [address] | [address] | | | | | EXERCISE | [place], | [place] | | | | | | [place] [address] | [place], [place] | | | | | | Phone: | [address] | | | | | | [phone] | Phone: | | | | | | Fax: | [phone] | | | | | | [phone] | Fax: | | | | | | | [phone] | +--------+--------+ + + + + Encounter Details +--------+---------+ + + + | Date | Type | Department | Care Team | Description | +--------+---------+ + + + | 07/30/ | Office | [facility] | Jared Mcdonough, | Chronic obstructive | | 2017 | Visit | MED CTR CARDIAC | [address] | pulmonary disease, | | | | REHABILITATION [address] [place], | unspecified COPD | | | | [address] [place] | [place] [address] | type (HCC) (Primary | | | | [place] [address] | [phone] | Dx) | | | | [phone] | | | +--------+---------+ + + + [...] [place] | | | | | | [address] | | | | | | | | +--------+---------+ + + + | 11/24/ | Office | Cardiology | [place], | | | 2019 | Visit | | SINDHU Erickson [address] | | | | | | [place], | | | | | | [place] [address] | | | | | | [phone] | | | | | | | | +--------+---------+ + + + documented as of this encounter Visit Diagnoses + + | Diagnosis | + + | Chronic obstructive pulmonary disease, unspecified COPD type (HCC) - Primary | + + documented in this encounter"
--- OUTSIDE RECORDS SUMMARY | ~2019-01-15 | XMS | Encounter Summary ---
Demographics + + + | Address | [address] | | | [place] [address] | + + + | Home Phone [...] Providers + +------+ + | Care Rubber Cutter And Shape Carver Name | Role | Phone | + +------+ + | Juan Cherry DO | PCP | | + +------+ + Encounter Details +--------+ + + + + | Date | Type | Department | Care Team | Description | +--------+ + + + + | 11/06/ | Hospital | [facility] | Juan Cherry, | Pituitary mass (HCC) | | 2014 | Encounter | MED CTR LABORATORY | DO [address] [facility] | | | | | [address] [place] | [place], [place] | | | | | [place], [place] | [address] | | | | | [address] | [phone] | | | | | [phone] | | | | | | | [...] | | | order to [facility]. | | | | | + [...] [place] | | | | | | [address] | | | | | | | | +--------+---------+ + + + | 11/24/ | Office | Cardiology | [place], | | | 2020 | Visit | | SINDHU Erickson [address] | | | | | | [place], | | | | | | [place] [address] | | | | | | [phone] | | | | | | | [...] 24HR | e | 11:00 AM | ([facility]) | procedure are in the | | [...] [place] | | | | | | [address] | | | | + + + [...] | Cortisol, | 8.77Comment: Reference | ug/g COPYWRITING INTERN | REFERENCE | | | Urine, | [...] | | | | than 32 ug/g school standards coach | | | | + + + [...] | | | this test in the [facility] | | | | | | Laboratory Test | | | | | | Directory(Ship Mate).T | | | | | | est developed and | | | | | | characteristics | | | | | | determined by [facility] | | | | | | Laboratories.See | | | | | | Compliance Statement B: | | | | | | Ship Mate/CSTesting | | | | | | Performed: [facility], [address] | | | | | | [address], [place] | | | | | | [id number] Performed: | | | | | | [facility], [address], | | | | | | [place] [address] | | | | + + + + + + + + | Specimen | + + | Urine specimen | | (specimen) | + + + + + + + | Performing | Address | City/State/Zipcode | Phone Number | | Organization | | | | + + + + + | [facility] | 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
--- OUTSIDE RECORDS SUMMARY | ~2019-01-15 | XMS | Encounter Summary ---
Demographics + + + | Address | [address] | | | [place] [address] | + + + | Home Phone [...] Team Providers + +------+ + | Care Paralegal Internship Name | Role | Phone | [...] + + | 09/02/ | Hospital | [facility] | [place], | Shortness of breath; | | 2017 | Encounter | MED CTR NUCLEAR | SINDHU Erickson [address] | Racing heart beat; | | | | MEDICINE [address] | [place], | Palpitations | | | | [place], | [place] [address] | | | | | [place] [address] | [phone] | | | | | [phone] | | | +--------+ + + + [...] | | | | | | [place] [address] | | | | | | [phone] | | | | | | | [...]
--- OUTSIDE RECORDS SUMMARY | ~2019-01-15 | XMS | Encounter Summary ---
Demographics + + + | Address | [address] | | | [place] [address] | + + + | Home Phone [...] + +------+ + | Care Front Desk Officer Name | Role | Phone | [...] + + | 09/25/ | Office | [facility] | [place], | Chest pain, | | 2016 | Visit | CARDIOLOGY [address] | SINDHU Erickson [address] | unspecified type | | | | [place], | [place], | (Primary Dx); | | | | [place] [address] | [place] [address] | Paroxysmal atrial | | | | [phone] | [phone] | tachycardia (HCC); | | | | [...] schedule for a Holter monitor and to [facility] to come to discuss results. Since [...] She is getting ready to go to [place] to be evaluated in [place] for a stomach/a bdominal surgery. Cardiac-garcia she [...] takes this da rigoberto Respiratory Therapy Supplies [facility] Please provide patient with necessary CPAP supplies ( she did not specify, okay to send order as appropriate) Diagnosis Code(s)327.23 . Length of Need 99 months. Please send order to [facility]. 1 each 0 Respiratory Therapy Supplies [facility] Change CPAP back to 11-14 cm H2O. All necessary suppl ies. No oxygen bleed in. Diagnosis Code(s)327.23. Length of Need: Lifetime. Please send orde r to [facility]. This is [...] RESULTS reviewed during visit today primarily from [facility]: LIPID No results found for: CHOL, TRIG, [...] PLTEX 370 07/11/2014 I reviewed records from [facility] for office visit on 09/05/2015 which is [...] She was seen at the ED of [facility] 3 weeks ago and again 1 [...] She is in a class II of [employer] functional class. There is [...] and ventricular function don e at the [facility]. LVEF 78%. C. Holter Monitor 08/16/13 [...] this chart may have been created with [employer] voice recognition software. Occasi onal wrong-word or [...] [place] | | | | | | [address] | | | | | | | | +--------+---------+ + + + | 11/24/ | Office | Cardiology | [place], | | | 2019 | Visit | | SINDHU Erickson [address] | | | | | | [place], | | | | | | [place] [address] | | | | | | [phone] | | | | | | | | +--------+---------+ + + + documented as of this encounter Visit Diagnoses + + | Diagnosis | + + | Chest pain, unspecified type - Primary | + + | Paroxysmal atrial tachycardia (HCC) Paroxysmal supraventricular tachycardia | + + | Palpitations | + + documented in this encounter
--- OUTSIDE RECORDS SUMMARY | ~2019-01-15 | XMS | Encounter Summary ---
Demographics + + + | Address | [address] | | | [place] [address] | + + + | Home Phone [...] Providers + +------+ + | Care Director Life Sales Name | Role | Phone | [...] + + | 01/13/ | Office | [facility] [place] | [place], | Central sleep apnea; | | 2011 | Visit | PULMONARY [address] | Loreta Alonso MD | Obstructive sleep | | | | [place], | | apnea; Insomnia | | | | [place] [address] | | | | | | [phone] | | | +--------+---------+ + + + [...] | | | | | [place] [address] | | | | | | [phone] | | | | | | | [...]
--- OUTSIDE RECORDS SUMMARY | ~2019-01-15 | XMS | Encounter Summary ---
Demographics + + + | Address | [address] | | | [place] [address] | + + + | Home Phone [...] Providers + +------+ + | Care Data Programmer Name | Role | Phone | [...] + | 08/28/ | Documentati | [facility] | Kathi Soto, | No Show | | 2017 | on | MED CTR SPEECH | Speech Pathologist | | | | | THERAPY [address] | | | | | | [place], | | | | | | [place] [address] | | | | | | [phone] | | | +--------+ + + + [...] Speech Pathologist - 08/28/2016 10:[facility] [address] [place] [address] Cancellation/No Show Date: 08/28/2016 Patient Information Patient [...] [place] | | | | | | [id number] | | | | | | | | +--------+---------+ + + + | 11/24/ | Office | Cardiology | [place], | | | 2019 | Visit | | SINDHU Erickson [address] | | | | | | [place] | | | | | | [place] [address] | | | | | | [phone] | | | | | | | | +--------+---------+ + + + documented as of this encounter Visit Diagnoses Not on filedocumented in this encounter"
--- OUTSIDE RECORDS SUMMARY | ~2019-01-15 | XMS | Encounter Summary ---
Demographics + + + | Address | [address] | | | [place] [address] | + + + | Home Phone [...] Providers + +------+ + | Care Child And Adolescent Psychiatrist Name | Role | Phone | [...] Cert [place] | | | | | [place], | | | | | | [place] [address] | | | | | | [phone] | | | +--------+ + + + [...] [place] | | | | | | [address] | | | | | | | | +--------+---------+ + + + | 11/24/ | Office | Cardiology | [place], | | | 2019 | Visit | | SINDHU Erickson [address] | | | | | | [place], | | | | | | [place] [address] | | | | | | [phone] | | | | | | | | +--------+---------+ + + + documented as of this encounter Visit Diagnoses Not on filedocumented in this encounter"
--- OUTSIDE RECORDS SUMMARY | ~2019-01-15 | XMS | Encounter Summary ---
Demographics + + + | Address | [address] | | | [place] [address] | + + + | Home Phone [...] + +------+ + | Care Shotgun Shell Assembly Machine Operator Name | Role | Phone | + +------+ + | Juan Cherry DO | PCP | | + +------+ + Encounter Details +--------+ + + + + | Date | Type | Department | Care Team | Description | +--------+ + + + + | 04/12/ | Hospital | [facility] | Ozzie Hayes | | | 2013 | Encounter | MED CTR EMERGENCY | MD Ran [address] | | | | | [place] [address] | [address] [place] | | | | | [place], [place] | [place] [address] | | | | | [address] | [phone] | | | | | [phone] | | | +--------+ + + + [...] | | [facility]. | | | | | | | [...] | | | | | | [place] [address] | | | | | | [phone] | | | | | | | [...] | [facility] Diagnostic Imaging | JAKIN | | Department [address], [place] | [facility] | | [ rep ct [phone]] [ rep ct [facility] | | st zip] Signed | - IMAGING | | | | | Patient Name: JADYN SCHMITZ | | | Physician: CHEVY : 1965 Age: 48 Sex: F Unit | | | #: [id number] Exam Date: 04/12/13 Location: | | | ER Report #: [id number] Page: | | | %(RAD)RES..mtdd.print.filter("pg") of %(RAD) | | | RES..mtdd.print.filter("tpg") | | | | | | Accession Number: [id number] | | | PORTABLE CHEST CLINICAL HISTORY: [...] Transcribed | | | Date/Time: 04/12/2013 08:42 Information Technology Data Analyst: | | | <<Signature on File>> | | | | | | Cesar Ren MD04/12/13 0957 <Electronically signed by | | | Cesar Ren MD> Cesar Ren MD 04/12/13 | | | 0732 Information Technology Data Analyst: [employer] [id number]/17/14 0842 | | | Ozzie Hayes MD | | + + + + + + + + | Performing | Address | City/State/Zipcode | Phone Number | | Organization | | | | + + + + + | [facility] | [address] | [place] | [phone] | | [facility] | | [address] | | | - IMAGING | | | | + + + + + documented in this encounter Visit Diagnoses Not on filedocumented in this encounter
--- OUTSIDE RECORDS SUMMARY | ~2019-01-15 | XMS | Encounter Summary ---
Demographics + + + | Address | [address] | | | [place] [address] | + + + | Home Phone [...] +------+ + | Care Exceptional Student Education Teacher Name | Role | Phone [...] [address] | | | | | [place], | [place], | | | | | [place] [address] | [place] [address] | | | | | [phone] | [phone] | | | | | | | [...] [place] | | | | | | [address] | | | | | | | | +--------+---------+ + + + | 11/24/ | Office | Cardiology | [place], | | | 2019 | Visit | | SINDHU Erickson [address] | | | | | | [place], | | | | | | [place] [address] | | | | | | [phone] | | | | | | | | +--------+---------+ + + + documented as of this encounter Visit Diagnoses Not on filedocumented in this encounter"
--- OUTSIDE RECORDS SUMMARY | ~2019-01-15 | XMS | Clinical Summary ---
Demographics + + + | Address | [address] [facility] | | | [place] [address] | + + + | Home Phone | | + + + | Preferred Language | Unknown | + + + | Marital Status | Single | + + + | Synagogue Affiliation | 1041 | + + + | Race | Unknown | + + + | Ethnic Group | Unknown | + + + Author + + + | Author | [facility] [employer] (Historical as of | | | 10-10-18) | + + + | Organization | [facility] (Historical as of | | | 10-10-18) [...] Providers + +------+ + | Care Instructional Resource Teacher Name | Role | Phone | [...] | | | | type ([facility]) | | [...] | | | | type ([facility]) | | [...] +------+-------+ + | MEDICARE | MEDICA | [id number] | | | [address] | | | RE | | | | [place] [address] | | | IP-OP | | | | | + +--------+ +------+-------+ + | MEDICAID | MEDICA | [id number] | | | [address] | | | ID | | | | [place] | | | INPT & | | | | [address] | | | OUPT | | | [...] | [birth year] | Home: | [address] [facility] | | | al/Fam | | 1965 | [phone] | [place] | | | rigoberto | | | [phone] | [address] | + +--------+ +--------+ + +
--- OUTSIDE RECORDS SUMMARY | ~2019-01-15 | XMS | Encounter Summary ---
Demographics + + + | Address | [address] | | | [place] [address] | + + + | Home Phone [...] Providers + +------+ + | Care Acid Washer Operator Name | Role | Phone | [...] | RN | | | | | [place], | | | | | | [place] [address] | | | | | | [phone] | | | +--------+ + + + [...] [place] | | | | | | [address] | | | | | | | | +--------+---------+ + + + | 11/24/ | Office | Cardiology | [place], | | | 2020 | Visit | | SINDHU Erickson [address] | | | | | | [place], | | | | | | [place] [address] | | | | | | [phone] | | | | | | | | +--------+---------+ + + + documented as of this encounter Visit Diagnoses Not on filedocumented in this encounter"
--- OUTSIDE RECORDS SUMMARY | ~2019-01-15 | XMS | Encounter Summary ---
Demographics + + + | Address | [address] | | | [place] [address] | + + + | Home Phone [...] Providers + +------+ + | Care Research Project Manager Name | Role | Phone | + +------+ + PCP | Unavailable | + +------+ + Encounter Details +--------+ + + + + | Date | Type | Department | Care Team | Description | +--------+ + + + + | 09/27/ | [facility] | [facility] | | | | 2009 | Encounter | MED CTR LABORATORY | | | | | | [address] | | | | | | [place] | | | | | | [address] | | | | | | [phone] | | | +--------+ + + + [...] [place] | | | | | | [address] | | | | | | | | +--------+---------+ + + + | 11/24/ | Office | Cardiology | [place], | | | 2020 | Visit | | SINDHU Erickson [address] | | | | | | [place], | | | | | | [place] [address] | | | | | | [phone] | | | | | | | | +--------+---------+ + + + documented as of this encounter Visit Diagnoses Not on filedocumented in this encounter"
--- OUTSIDE RECORDS SUMMARY | ~2019-01-15 | XMS | Encounter Summary ---
Demographics + + + | Address | [address] | | | [place] [address] | + + + | Home Phone [...] Providers + +------+ + | Care Development Administrator Name | Role | Phone | + +------+ + | Juan Cherry DO | PCP | | + +------+ + Encounter Details +--------+---------+ + + + | Date | Type | Department | Care Team | Description | +--------+---------+ + + + | 06/06/ | Office | [facility] | Jared Mcdonough, | Chronic obstructive | | 2017 | Visit | MED CTR CARDIAC | [address] [place] | pulmonary disease, | | | | REHABILITATION [address] [place], | unspecified COPD | | | | [address] [place] | [place] [address] | type (HCC) (Primary | | | | [place] [address] | [phone] | Dx); Pulmonary | | | | [phone] | | emphysema, | | | | [...] Desean Wheeler - 06/06/2016 3:[address] [facility] CARDIAC [facility]ILITATION [address] [facility] [address] Cardiac Rehab Date: 06/06/2016 Patient Information Patient [...] | | | | [place] | | | | | | [address] | | | | | | | | +--------+---------+ + + + | 10/01/ | Office | Cardiology | [place], | | | 2019 | Visit | | SINDHU Erickson [address] | | | | | | [place], | | | | | | [place] [address] | | | | | | [phone] | | | | | | | | +--------+---------+ + + + documented as of this encounter Visit Diagnoses + + | Diagnosis | + + | Chronic obstructive pulmonary disease, unspecified COPD type (HCC) - Primary | + + | Pulmonary emphysema, unspecified emphysema type (HCC) | + + documented in this encounter"
--- OUTSIDE RECORDS SUMMARY | ~2019-01-15 | XMS | Encounter Summary ---
Demographics + + + | Address | [address] | | | [place] [address] | + + + | Home Phone [...] Providers + +------+ + | Care Land Leases And Rentals Manager Name | Role | Phone | [...] [address] | | | | | [place], | [place], | | | | | [place] [address] | [place] [address] | | | | | [phone] | [phone] | | | | | | | [...] [place] | | | | | | [address] | | | | | | | | +--------+---------+ + + + | 11/24/ | Office | Cardiology | [place], | | | 2019 | Visit | | SINDHU Erickson [address] | | | | | | [place], | | | | | | [place] [address] | | | | | | [phone] | | | | | | | [...]
--- OUTSIDE RECORDS SUMMARY | ~2019-01-15 | XMS | Encounter Summary ---
Demographics + + + | Address | [address] | | | [place] [address] | + + + | Home Phone [...] Providers + +------+ + | Care Gear Lapping Machine Operator Name | Role | Phone [...] | Pulmonary | MD Mukul | [address] | | | | | emphysema, | [address] | [place], | | | | | unspecified | [address] | [place] [address] | | | | | emphysema | [address] | Phone: | | | | | type (HCC) | [place], [place] | [phone] | | | | | Procedures | [address] | Fax: | | | | | CT Chest wo | Phone: | [phone] | | | | | Contrast | [phone] | | | | | | | Fax: | | | | | | | [phone] | | +--------+--------+ + + + + [...] | Pulmonary | MD Mukul | [address] | | | | | emphysema, | [address] | [place], | | | | | unspecified | [address] | [place] [address] | | | | | emphysema | [address] | Phone: | | | | | type (HCC) | [place], [place] | [phone] | | | | | Procedures | [address] | Fax: | | | | | CT Chest wo | Phone: | [phone] | | | | | Contrast | [phone] | | | | | | | Fax: | | | | | | | [phone] | | +--------+--------+ + + + + Encounter Details +--------+ + + + + | Date | Type | Department | Care Team | Description | +--------+ + + + + | 03/05/ | Hospital | [facility] | Mukul Clark MD | Pulmonary emphysema, | | 2017 | Encounter | MED CTR CT [address] | [address] | unspecified | | | | [address] [place], | [place], [place] | emphysema type (HCC) | | | | [place] [address] | [address] | | | | | [phone] | | | +--------+ + + + [...] | 0 | 10/13/19 | | | Erergexnug-LWCG-Nqmi | mouth as needed. | | | 16 | 7 | | -Cod [id number] MG | | | | | | [...] | | | | [address] [facility] [facility] [place] | | | | | | [address] | | | | | | | | +--------+---------+ + + + | 11/24/ | Office | Cardiology | [place], | | | 2019 | Visit | | SINDHU Erickson [address] | | | | | | [place], | | | | | | [place] [address] | | | | | | [phone] | | | | | | | [...] emphysema, unspecified emphysema type (HCC). COMPARISON: | [facility] | | 11/16/2013, 02/09/2010. PROTOCOL: Axial images [...] + | [facility] | [address] | [place] | [phone] | | [facility] | | [address] | | | - IMAGING | | | | + + + + + documented in this encounter Visit Diagnoses + + | Diagnosis | + + | Pulmonary emphysema, unspecified emphysema type (HCC) | + + documented in this encounter
--- OUTSIDE RECORDS SUMMARY | ~2019-01-15 | XMS | Encounter Summary ---
Demographics + + + | Address | [address] | | | [place] [address] | + + + | Home Phone [...] Team Providers + +------+ + | Care Pump Press Operator Name | Role | Phone [...] | COPD | MD Kevin | [address] | | | | | (chronic | [address] | [place], | | | | | obstructive | [place] | [place] [address] | | | | | pulmonary | [place], | Phone: | | | | | disease) | [place] [address] | [phone] | | | | | (HCC) | Phone: | Fax: | | | | | Procedures | [phone] | [phone] | | | | | CT Chest wo | Fax: | | | | | | Contrast | [phone] | | +--------+--------+ + + + + [...] | COPD | MD Kevin | [address] | | | | | (chronic | [address] | [place], | | | | | obstructive | [place] | [place] [address] | | | | | pulmonary | [place], | Phone: | | | | | disease) | [place] [address] | [phone] | | | | | (HCC) | Phone: | Fax: | | | | | Procedures | [phone] | [phone] | | | | | CT Chest wo | Fax: | | | | | | Contrast | [phone] | | +--------+--------+ + + + + Encounter Details +--------+ + + + + | Date | Type | Department | Care Team | Description | +--------+ + + + + | 11/16/ | Hospital | [facility] | Kevin Sandoval, | COPD (chronic | | 2013 | Encounter | MED CTR CT [address] | [address] [place] | obstructive | | | | [place], | [place], [place] | pulmonary disease) | | | | [place] [address] | [address] | ([facility]) | | | | [phone] | | | +--------+ + + + [...] | | | | | order to [facility]. | | | | | [...] [place] | | | | | | [address] | | | | | | | | +--------+---------+ + + + | 11/24/ | Office | Cardiology | [place], | | | 2019 | Visit | | SINDHU Erickson [address] | | | | | | [place], | | | | | | [place] [address] | | | | | | [phone] | | | | | | | [...] + | MISCELLANEOUS LAB | | | [phone] | + +---------+ + + | MISCELANIOUS LAB | | | [phone] | + +---------+ + + documented in this encounter Visit Diagnoses + + | Diagnosis | + + | COPD (chronic obstructive pulmonary disease) (HCC) Chronic airway obstruction, not | | elsewhere classified | + + documented in this encounter
--- OUTSIDE RECORDS SUMMARY | ~2019-01-15 | XMS | Encounter Summary ---
Demographics + + + | Address | [address] | | | [place] [address] | + + + | Home Phone [...] Providers + +------+ + | Care Restaurant And Bar Manager Name | Role | Phone | [...] medication) | | | | [place] | [facility]OM [facility] | | | | | [address] | [place] [address] | | | | | [phone] | [phone] | | | | | | | [...] [place] | | | | | | [address] | | | | | | | | +--------+---------+ + + + | 11/24/ | Office | Cardiology | [place], | | | 2019 | Visit | | SINDHU Erickson [address] | | | | | | [place], | | | | | | [place] [address] | | | | | | [phone] | | | | | | | | +--------+---------+ + + + documented as of this encounter Visit Diagnoses Not on filedocumented in this encounter"
--- OUTSIDE RECORDS SUMMARY | ~2019-01-15 | XMS | Encounter Summary ---
Demographics + + + | Address | [address] | | | [place] [address] | + + + | Home Phone [...] + +------+ + | Care Director Of Workforce Development Name | Role | Phone | + [...] | | | | | pulmonary | [address] | [address] | | | | | disease, | [place], | [place], [place] | | | | | unspecified | [place] [address] | [address] | | | | | COPD type | Phone: | Phone: | | | | | ([facility]) | [phone] | [phone] | | | | | | Fax: | Fax: | | | | | | [phone] | [phone] | +--------+ + + + + + Encounter Details +--------+ + + + + | Date | Type | Department | Care Team | Description | +--------+ + + + + | 02/03/ | Orders Only | [facility] | Jared Mcdonough, | Chronic obstructive | | 2015 | | CARDIOLOGY [address] | [address] | pulmonary disease, | | | | [place], | [place], | unspecified COPD | | | | [place] [address] | [place] [address] | type (HCC) (Primary | | | | [phone] | [phone] | Dx) | | | | | [...] [place] | | | | | | [address] | | | | | | | | +--------+---------+ + + + | 11/24/ | Office | Cardiology | [place], | | | 2019 | Visit | | SINDHU Erickson [address] | | | | | | [place], | | | | | | [place] [address] | | | | | | [phone] | | | | | | | | +--------+---------+ + + + + + +--------+ + + | Name | Type | Priori | Associated Diagnoses | Order Schedule | | | | ty | | | + + +--------+ + + | AMB REFERRAL TO [facility] | Outpatient | Routin | Chronic [...]
--- OUTSIDE RECORDS SUMMARY | ~2019-01-15 | XMS | Encounter Summary ---
Demographics + + + | Address | [address] | | | [place] [address] | + + + | Home Phone [...] Team Providers + +------+ + | Care Occupational Analyst Name | Role | Phone | + +------+ + PCP | Unavailable | + +------+ + Encounter Details +--------+ + + + + | Date | Type | Department | Care Team | Description | +--------+ + + + + | 09/15/ | Hospital | [facility] | Rocky Rodriguez | | | 2010 | Encounter | MED CTR EMERGENCY | MD Kyler [address] | | | | | CENTER [address] [place] | [place] [facility] | | | | | [place], [place] | [place] [address] | | | | | [address] | [phone] | | | | | [phone] | | | +--------+ + + + [...] [place] | | | | | | [address] | | | | | | | | +--------+---------+ + + + | 11/24/ | Office | Cardiology | [place], | | | 2019 | Visit | | SINDHU Erickson [address] | | | | | | [place], | | | | | | [place] [address] | | | | | | [phone] | | | | | | | | +--------+---------+ + + + documented as of this encounter Visit Diagnoses Not on filedocumented in this encounter"
--- OUTSIDE RECORDS SUMMARY | ~2019-01-15 | XMS | Encounter Summary ---
Demographics + + + | Address | [address] | | | [place] [address] | + + + | Home Phone [...] Providers + +------+ + | Care Supervisor Chassis Assembly Name | Role | Phone | + +------+ + | Juan Cherry DO | PCP | | + +------+ + Encounter Details +--------+ + + + + | Date | Type | Department | Care Team | Description | +--------+ + + + + | 08/05/ | Hospital | [facility] | Kevin Sandoval, | Chronic airway | | 2013 | Encounter | MED CTR PULMONARY | MD [address] [place] | obstruction, not | | | | FUNCTION [address] | [place], [place] | elsewhere classified | | | | [place], | [address] | (HCC) | | | | [place] [address] | | | | | | [phone] | | | +--------+ + + + [...] | | | | | | | [facility]. | | | | | [...] [place] | | | | | | [address] | | | | | | | | +--------+---------+ + + + | 11/24/ | Office | Cardiology | [place], | | | 2019 | Visit | | SINDHU Erickson [address] | | | | | | [place], | | | | | | [place] [address] | | | | | | [phone] | | | | | | | [...] classified | | | | | | ([facility]) | | + +--------+ + + + documented in this encounter Visit Diagnoses + + | Diagnosis | + + | Chronic airway obstruction, not elsewhere classified | + + documented in this encounter"
--- OUTSIDE RECORDS SUMMARY | ~2019-01-15 | XMS | Encounter Summary ---
Demographics + + + | Address | [address] | | | [place] [address] | + + + | Home Phone [...] | | [place] | [address] [facility] | | | | | [address] | [place] [address] | | | | | [phone] | [phone] | | | | | | | [...] | | | | | | [place] [address] | | | | | | [phone] | | | | | | | | +--------+---------+ + + + documented as of this encounter Visit Diagnoses Not on filedocumented in this encounter"
--- OUTSIDE RECORDS SUMMARY | ~2019-01-15 | XMS | Encounter Summary ---
Demographics + + + | Address | [address] | | | [place] [address] | + + + | Home Phone [...] Providers + +------+ + | Care Laborer Carpentry Dock Name | Role | Phone | + +------+ + | Juan Cherry DO | PCP | | + +------+ + Encounter Details +--------+---------+ + + + | Date | Type | Department | Care Team | Description | +--------+---------+ + + + | 08/17/ | Office | [facility] | Meghan Garcia MD | GARRY (obstructive | | 2018 | Visit | SLEEP DISORDER [address] | [address] | sleep apnea) | | | | [address] [place] | [place] | (Primary Dx); [place] | | | | [place] [address] | [address] | (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 I reviewed the notes from Dr Chris Alarcon in [place], [place].It indicates that patient had CPAP intolerance [...] day for h er COPD through her straight ruling machine operator. We performed a CPAP titration study on [...] time spent below SpO2 of 90% was0%.Transcutaneous JD6wbhdux 35-37mmHg during supine wake,a nd remained between [...] higher. Patient continued to have awakenings at [facility], and also excessive daytime sleepiness. Though one [...] breaths does not meet criteria for an case finishing machine adjuster ea or hypopnea. REVELANT MEDICATIONS: Gabapentin, prednisone, tramadol, Ziprasidone. SUBJECTIVE: The patient rated sleep quality during sleep study as usual. Manager Meeting note: Patient continues to struggle with mask [...] Leak. I s ent a prescription to [place] for nasal mask and chin strap. I also discussed the impact of the sleep deprivation on her health, and excessive daytime s leepiness. She has minimal physical activity. She does some chores, and then she watches [employer] or is on her computer from 3 [...] book, or do some g uided meditation ([employer]) in part of her living room that [...] [place] | | | | | | [address] | | | | | | | | +--------+---------+ + + + | 11/24/ | Office | Cardiology | [place], | | | 2019 | Visit | | SINDHU Erickson [address] | | | | | | [place], | | | | | | [place] [address] | | | | | | [phone] | | | | | | | [...]
--- OUTSIDE RECORDS SUMMARY | ~2019-01-15 | XMS | Encounter Summary ---
Demographics + + + | Address | [address] | | | [place] [address] | + + + | Home Phone [...] Team Providers + +------+ + | Care Well Site Drilling Engineer Name | Role | Phone | [...] | [address] [place] | [place] [address] | Dx) | | | | [facility], [place] | [phone] | | | | | [address] | | | | | | [phone] | | | +--------+ + + + [...] [place] | | | | | | [address] | | | | | | | | +--------+---------+ + + + | 11/24/ | Office | Cardiology | [place], | | | 2019 | Visit | | SINDHU Erickson [address] | | | | | | [place], | | | | | | [place] [address] | | | | | | [phone] | | | | | | | | +--------+---------+ + + + documented as of this encounter Visit Diagnoses + + | Diagnosis | + + | Other specified sites of sprains and strains - Primary | + + documented in this encounter"
--- OUTSIDE RECORDS SUMMARY | ~2019-01-15 | XMS | Encounter Summary ---
Demographics + + + | Address | [address] | | | [place] [address] | + + + | Home Phone [...] Team Providers + +------+ + | Care Gathering Machine Feeder Name | Role | Phone [...] | | | | | pulmonary | [address] | [address] | | | | | disease, | [place], | [place] | | | | | unspecified | [place] [address] | [place], [place] | | | | | COPD type | Phone: | [address] | | | | | (HCC) | [phone] | Phone: | | | | | Pulmonary | Fax: | [phone] | | | | | emphysema, | [phone] | Fax: | | | | | unspecified | | [phone] | | | | | emphysema | | | | | | | type ([facility]) | | | +--------+ + + + + + Encounter Details +--------+---------+ + + + | Date | Type | Department | Care Team | Description | +--------+---------+ + + + | 05/28/ | Office | [facility] | Jared Mcdonough, | Chronic obstructive | | 2017 | Visit | MED CTR CARDIAC | [address] | pulmonary disease, | | | | REHABILITATION [address] [place], | unspecified COPD | | | | [address] [place] [place] | [place] [address] | type (HCC) (Primary | | | | [place] [address] | [phone] | Dx); Pulmonary | | | | [phone] | | emphysema, | | | | [...] Desean Chris - 05/28/2016 3:42 PM PDT LOCATED WITHIN [facility] CARDIAC REHABILITATION [address] [place] [address] Cardiac Rehab Date: 05/28/2016 Patient Information Patient [...] | | | | [place] | | | | | | [address] | | | | | | | | +--------+---------+ + + + | 11/24/ | Office | Cardiology | [place], | | | 2019 | Visit | | SINDHU Erickson [address] | | | | | | [place], | | | | | | [place] [address] | | | | | | [phone] | | | | | | | | +--------+---------+ + + + documented as of this encounter Visit Diagnoses + + | Diagnosis | + + | Chronic obstructive pulmonary disease, unspecified COPD type (HCC) - Primary | + + | Pulmonary emphysema, unspecified emphysema type (HCC) | + + documented in this encounter"
--- OUTSIDE RECORDS SUMMARY | ~2019-01-15 | XMS | Encounter Summary ---
Demographics + + + | Address | [address] | | | [place] [address] | + + + | Home Phone [...] Providers + +------+ + | Care Director Sales Support Name | Role | Phone | + +------+ + | Juan Cherry DO | PCP | | + +------+ + Encounter Details +--------+---------+ + + + | Date | Type | Department | Care Team | Description | +--------+---------+ + + + | 02/28/ | Surgery | [facility] | Jared Mcdonough, | [facility] with Radial | | 2014 | | MED CTR CV INTRA OP | MD [address] | approach | | | | [address] | [address] [place], | | | | | [place], [place] | [place] [address] | | | | | [address] | [phone] | | | | | [phone] | | | +--------+---------+ + + + [...] good to rt footElectronically signed by Chanda Pdailla RN at 06/2014 10:49 AM Chanda Bain [...] | | | | | | [place] [address] | | | | | | [phone] | | | | | | | [...] RECORD NUMBER: | MEDICAL CENTER | | [id number] DATE OF PROCEDURE: 02/28/2014 PERSONNEL RESEARCH PSYCHOLOGIST: | - IMAGING | | Jared Mcdonough [...] Malik, (1965) OF | | PROCEDURE: 02/28/2014PRIMARY CARROTING MACHINE OFFBEARER: Jared Mcdonough MD PROCEDURES | | PERFORMED:Coronary [...] [address] | [place] | [phone] | | [facility] | | [address] | | | - IMAGING | | [...] 0.94 | 0.60 - 1.30 | [facility] | | | | | mg/dL [...] mL/min/1.73m2 | [facility] | | | [place] | RATE,ESTIMATED | | MEDICAL | | | | mL/min/1.04l1Dwqb than | | CENTER - | | [...] + | [facility] | [address] | [place] | [phone] | | [facility] | | [address] | | | - LABORATORY | | | | + + + + + | [facility] | [address] | [place], [place] | | | [facility] | | [address] | | | - LABORATORY | | [...]
--- OUTSIDE RECORDS SUMMARY | ~2019-01-15 | XMS | Encounter Summary ---
Demographics + + + | Address | [address] | | | [place] [address] | + + + | Home Phone [...] Team Providers + +------+ + | Care Shuttle Threader Name | Role | Phone | + +------+ + | Juan Cherry DO | PCP | | + +------+ + Encounter Details +--------+---------+ + + + | Date | Type | Department | Care Team | Description | +--------+---------+ + + + | 10/31/ | Office | [facility] | Andriy Weber | Interstitial | | 2016 | Visit | [address] | MD [address] | cystitis (Primary | | | | [place], [place] | [address] [place] | Dx) | | | | [address] | [place] [address] | | | | | [phone] | [phone] | | | | | | | [...] have not thoroughly proofread this note, and seam checker err ors may occur. documented in th is encounter Plan of Treatment +--------+---------+ + + + | Date | Type | Specialty | Care Team | Description | +--------+---------+ + + + | 03/01/ | Office | Pulmonology | Mukul Clark MD | | | 2019 | Visit | | [address] | | | | | | [place], [place] | | | | | | [address] | | | | | | | | +--------+---------+ + + + | 11/24/ | Office | Cardiology | [place], | | | 2019 | Visit | | SINDHU Erickson [address] | | | | | | [place], | | | | | | [place] [address] | | | | | | [phone] | | | | | | | | +--------+---------+ + + + documented as of this encounter Visit Diagnoses + + | Diagnosis | + + | Interstitial cystitis - Primary Chronic interstitial cystitis | + + documented in this encounter"
--- OUTSIDE RECORDS SUMMARY | ~2019-01-15 | XMS | Encounter Summary ---
Demographics + + + | Address | [address] | | | [place] [address] | + + + | Home Phone [...] Team Providers + +------+ + | Care Infantry Weapons Officer Name | Role | Phone | [...] | | | | [facility] | [address] | [address] | | | | | EXERCISE | [place], | [place] | | | | | | [place] [address] | [place], [place] | | | | | | Phone: | [address] | | | | | | [phone] | Phone: | | | | | | Fax: | [phone] | | | | | | [phone] | Fax: | | | | | | | [phone] | +--------+--------+ + + + + Encounter Details +--------+---------+ + + + | Date | Type | Department | Care Team | Description | +--------+---------+ + + + | 08/13/ | Office | [facility] | Jared Mcdonough, | Chronic obstructive | | 2017 | Visit | MED CTR CARDIAC | [address] | pulmonary disease, | | | | REHABILITATION [address] | [address] [place], | unspecified COPD | | | | [address] [place] | [place] [address] | type (HCC) (Primary | | | | [place] [address] | [phone] | Dx) | | | | [phone] | | | +--------+---------+ + + + [...] [place] | | | | | | [address] | | | | | | | | +--------+---------+ + + + | 11/24/ | Office | Cardiology | [place], | | | 2019 | Visit | | SINDHU Erickson [address] | | | | | | [place], | | | | | | [place] [address] | | | | | | [phone] | | | | | | | | +--------+---------+ + + + documented as of this encounter Visit Diagnoses + + | Diagnosis | + + | Chronic obstructive pulmonary disease, unspecified COPD type (HCC) - Primary | + + documented in this encounter"
--- OUTSIDE RECORDS SUMMARY | ~2019-01-15 | XMS | Encounter Summary ---
Demographics + + + | Address | [address] | | | [place] [address] | + + + | Home Phone [...] Team Providers + +------+ + | Care Recordings Librarian Name | Role | Phone | + [...] | 08/09/ | Telephone | [facility] [place] | Jared Mcdonough, | Other (Initial | | 2013 | | CARDIOLOGY [address] | [address] | Intake) | | | | [place], | [place], | | | | | [place] [address] | [place] [address] | | | | | [phone] | [phone] | | | | | | | [...] [place] | | | | | | [address] | | | | | | | | +--------+---------+ + + + | 11/24/ | Office | Cardiology | [place], | | | 2019 | Visit | | SINDHU Erickson [address] | | | | | | [place], | | | | | | [place] [address] | | | | | | [phone] | | | | | | | | +--------+---------+ + + + documented as of this encounter Visit Diagnoses Not on filedocumented in this encounter"
--- OUTSIDE RECORDS SUMMARY | ~2019-01-15 | XMS | Encounter Summary ---
Demographics + + + | Address | [address] | | | [place] [address] | + + + | Home Phone [...] Providers + +------+ + | Care Title Curative Specialist Name | Role | Phone | [...] | (obstructive | [address] | [place] | | | | | sleep | ST [place] | [place], | | | | | apnea) | [place] | [place] [address] | | | | | J44.9 | [address] | Phone: | | | | | (ICD-10-CM) | Phone: | [phone] | | | | | - 496 | [phone] | Fax: | | | | | (ICD-9-CM) - | Fax: | [phone] | | | | | Chronic | [phone] | | | | | | obstructive | | | | | | | pulmonary | | | | | | | disease, | | | | | | | unspecified | | | | | | | COPD type | | | | | | | (HCC | | | | | | | Procedures | | | | | | | [place] POLYSOM | | | | | | | 6/>YRS SLEEP | | | | | | | W/CPAP 4/> | | | | | | | ADDL ALESSIA | | | | | | | ATTND [place] | | | | | | | [...] + + | 04/28/ | Hospital | [facility] | Meghan Garcia MD | GARRY (obstructive | | 2019 - | Encounter | MED CTR SLEEP | [address] [facility] | sleep apnea); | | | | CENTER [address] [place] | [place] | Chronic obstructive | | 04/29/ | | [place] | [address] | pulmonary disease, | | 2019 | | [address] | | unspecified COPD | | | | [phone] | | type (HCC) | +--------+ + [...] | | | | | order to [facility]. | | | | | [...] | | | | send order to [facility] | | | | | | | [facility]. | | | | | | [...] [place] | | | | | | [address] | | | | | | | | +--------+---------+ + + + | 11/24/ | Office | Cardiology | [place], | | | 2019 | Visit | | SINDHU Erickson [address] | | | | | | [place], | | | | | | [place] [address] | | | | | | [phone] | | | | | | | [...] [facility] | | | [place] [address] Positive Airway | | | Pressure Titration [...] machine. She has tried to get her [employer] to add the | | | connection [...] her COPD through her | | | card filer.She says since she stopped using her bilevel [...] reviewed the notes from Dr. Alarcon in [place], [place]. | | | It indicates that [...] have | | | been created with [employer] voice recognition software. Occasional | | | [...] this chart may have been created with [employer] voice | | |recognition software. Occasional wrong-word [...] PST [facility] | | [place], [place] [address]T[place] Airway Pressure Titration | | Report on [...] for her COPD | | through her card filer.She says since she stopped using her bilevel [...] reviewed the notes from Dr. Alarcon in [place], [place]. It | | indicates that patient [...] may have been created with | | [employer] voice recognition software. Occasional wrong-word or | [...]
--- OUTSIDE RECORDS SUMMARY | ~2019-01-15 | XMS | Encounter Summary ---
Demographics + + + | Address | [address] | | | [place] [address] | + + + | Home Phone [...] Team Providers + +------+ + | Care Continuous Washer Operator Name | Role | Phone [...] Alonso MD | | | | | [place], | | | | | | [place] [address] | | | | | | [phone] | | | +--------+--------+ + + + [...] | | | | | | [place] [address] | | | | | | [phone] | | | | | | | | +--------+---------+ + + + documented as of this encounter Visit Diagnoses Not on filedocumented in this encounter"
--- OUTSIDE RECORDS SUMMARY | ~2019-01-15 | XMS | Encounter Summary ---
Demographics + + + | Address | [address] | | | [place] [address] | + + + | Home Phone [...] Providers + +------+ + | Care Personal Development Educator Name | Role | Phone | + [...] [place], | | | | | | [place] [address] | | | | | | [phone] | | | +--------+ + + + [...] Speech Pathologist - 05/30/2016 1:32 PM [facility] [address] [place] [address] Cancellation/No Show Date: 05/30/2016 Patient Information Patient Name: Rosario Malik Date of : 1965 Age: 51 y.o. Reason for missed visit: Cancellation- NO engineering instructor Phone call placed: yes - pt called [...] [place] | | | | | | [id number] | | | | | | | | +--------+---------+ + + + | 11/24/ | Office | Cardiology | [place] | | | 2019 | Visit | | SINDHU Erickson [address] | | | | | | [place] | | | | | | [place] [address] | | | | | | [phone] | | | | | | | | +--------+---------+ + + + documented as of this encounter Visit Diagnoses Not on filedocumented in this encounter"
--- OUTSIDE RECORDS SUMMARY | ~2019-01-15 | XMS | Encounter Summary ---
Demographics + + + | Address | [address] | | | [place] [address] | + + + | Home Phone [...] Providers + +------+ + | Care Safety Technician Name | Role | Phone | [...] + + | 09/09/ | Emergency | [facility] | Guru Cárdenas, | Epigastric pain | | 2017 | | MED CTR EMERGENCY | MD [address] | (Primary Dx) | | | | CENTER [address] | [facility] [place] | | | | | [place] | [place] [address] | | | | | [address] | [phone] | | | | | [phone] | | | +--------+ + + + [...] be sent through Care Everywhere.GASTRITIS (ADUL T) (LATVIAN)documented in this encounter Medications at Time of [...] [facility]. | | | | | | | [...] | 0 | 10/13/19 | | | Gqnhntzyis-ZZHY-Bqzr | mouth as needed. | | | 16 | 7 | | -Cod [id number] MG | | | | | | [...] [place] | | | | | | [address] | | | | | | | | +--------+---------+ + + + | 11/24/ | Office | Cardiology | [place], | | | 2019 | Visit | | SINDHU Erickson [address] | | | | | | [place], | | | | | | [place] [address] | | | | | | [phone] | | | | | | | [...] W?MRN: | | | | | | [id number] | | | [id number] | | | his | | | [...] ST. | [address] | [place] | [phone] | | [facility] | | [address] | | | - LABORATORY | | [...] | | FILTRATION | mL/min/1.73m2 | [facility] | | | [place] | RATE,ESTIMATED | | MEDICAL | | | | mL/min/1.97w3Ylci than | | CENTER - | | [...] Ratio | appended report. These | | [facility] | | | | results have been [...] [address] | [place] | [phone] | | [facility] | | [address] | | | - LABORATORY | | [...] + | [facility] | [address] | [place] | [phone] | | [facility] | | [address] | | | - LABORATORY | | [...] - 1.030 | [facility] | | | [place] | | | [facility] | | [...] [address] | [place] | [phone] | | [facility] | | [address] | | | - LABORATORY | | [...] [address] | [place] | [phone] | | [facility] | | [address] | | | - LABORATORY | | [...] ST. | [address] | [place], [place] | [phone] | | [facility] | | [address] | | | - LABORATORY | | [...] [address] | [place] | [phone] | | [facility] | | [address] | | | - LABORATORY | | [...] [address] | [place] | [phone] | | [facility] | | [address] | | | - LABORATORY | | [...] ST. | [address] | [place], [place] | [phone] | | [facility] | | [address] | | | - LABORATORY | | [...]
--- OUTSIDE RECORDS SUMMARY | ~2019-01-15 | XMS | Encounter Summary ---
Demographics + + + | Address | [address] | | | [place] [address] | + + + | Home Phone [...] Providers + +------+ + | Care Supervisor Electric Name | Role | Phone | + [...] [address] | | | | | [place], | [place] | | | | | [place] [address] | [address] | | | | | [phone] | | | +--------+--------+ + + + [...] | | | | | | [place] [address] | | | | | | [phone] | | | | | | | | +--------+---------+ + + + documented as of this encounter Visit Diagnoses Not on filedocumented in this encounter"
--- OUTSIDE RECORDS SUMMARY | ~2019-01-15 | XMS | Encounter Summary ---
Demographics + + + | Address | [address] | | | [place] [address] | + + + | Home Phone [...] Team Providers + +------+ + | Care Guitar Instructor Name | Role | Phone | [...] + | 07/24/ | Telephone | [facility] | Meghan Garcia MD | Follow-up | | 2019 | | SLEEP DISORDER [address] | [address] | | | | | [place] | [place] | | | | | [place] [address] | [address] | | | | | [phone] | | | +--------+ + + + [...] [place] | | | | | | [address] | | | | | | | | +--------+---------+ + + + | 11/24/ | Office | Cardiology | [place], | | | 2019 | Visit | | SINDHU Erickson [address] | | | | | | [place], | | | | | | [place] [address] | | | | | | [phone] | | | | | | | | +--------+---------+ + + + documented as of this encounter Visit Diagnoses Not on filedocumented in this encounter"
--- OUTSIDE RECORDS SUMMARY | ~2019-01-15 | XMS | Encounter Summary ---
Demographics + + + | Address | [address] | | | [place] [address] | + + + | Home Phone [...] Providers + +------+ + | Care Schedule Hanger Name | Role | Phone | + +------+ + PCP | Unavailable | + +------+ + Encounter Details +--------+ + + + + | Date | Type | Department | Care Team | Description | +--------+ + + + + | 04/05/ | [facility] | [facility] | | | | 2010 | Encounter | MED CTR XRAY [address] | | | | | | [place] | | | | | | [place] [address] | | | | | | [phone] | | | +--------+ + + + [...] [place] | | | | | | [address] | | | | | | | | +--------+---------+ + + + | 11/24/ | Office | Cardiology | [place], | | | 2019 | Visit | | SINDHU Erickson [address] | | | | | | [place], | | | | | | [place] [address] | | | | | | [phone] | | | | | | | | +--------+---------+ + + + documented as of this encounter Visit Diagnoses Not on filedocumented in this encounter"
--- OUTSIDE RECORDS SUMMARY | ~2019-01-15 | XMS | Encounter Summary ---
Demographics + + + | Address | [address] | | | [place] [address] | + + + | Home Phone [...] Providers + +------+ + | Care Merchandise Handler Name | Role | Phone | [...] + + | 11/23/ | Emergency | [facility] | Alexi Guaman, | Post-op pain | | 2016 | | MED CTR EMERGENCY | MD [address] | (Primary Dx) | | | | CENTER [address] [place] | [place] | | | | | [place] | [address] | | | | | [address] | | | | | | [phone] | | | +--------+ + + + [...] sent through Care Everywhere.PAIN MANAGEMENT AFTER SURGERY (MALTESE)documented in this encounter Medications at Time of [...] | | | | ([facility]) | | | | | | [...] | 0 | 10/13/19 | | | Dvxgekqctu-JVZI-Ljau | mouth as needed. | | | 16 | 7 | | -Cod [id number] MG | | | | | | [...] | | | | ([facility]) | | | | | | [...] [place] | | | | | | [address] | | | | | | | | +--------+---------+ + + + | 11/24/ | Office | Cardiology | [place], | | | 2019 | Visit | | SINDHU Erickson [address] | | | | | | [place], | | | | | | [place] [address] | | | | | | [phone] | | | | | | | [...]
--- OUTSIDE RECORDS SUMMARY | ~2019-01-15 | XMS | Encounter Summary ---
Demographics + + + | Address | [address] | | | [place] [address] | + + + | Home Phone [...] Team Providers + +------+ + | Care Decorating Consultant Name | Role | Phone | [...] [address] | | | | | [place], | [place], | | | | | [place] [address] | [place] [address] | | | | | [phone] | [phone] | | | | | | | [...] | | | | | | [place] [address] | | | | | | [phone] | | | | | | | | +--------+---------+ + + + documented as of this encounter Visit Diagnoses Not on filedocumented in this encounter"
--- OUTSIDE RECORDS SUMMARY | ~2019-01-15 | XMS | Encounter Summary ---
Demographics + + + | Address | [address] | | | [place] [address] | + + + | Home Phone [...] + +------+ + | Care Plate Stacker Name | Role | Phone | + +------+ + PCP | Unavailable | + +------+ + Encounter Details +--------+ + + + + | Date | Type | Department | Care Team | Description | +--------+ + + + + | 09/22/ | Hospital | [facility] | Rocky Rodriguez | | | 2008 | Encounter | MED CTR EMERGENCY | MD Kyler [address] | | | | | CENTER [address] | [address] [facility] | | | | | [place], [place] | [place] [address] | | | | | [address] | [phone] | | | | | [phone] | | | +--------+ + + + [...] [place] | | | | | | [address] | | | | | | | | +--------+---------+ + + + | 11/24/ | Office | Cardiology | [place], | | | 2019 | Visit | | SINDHU Erickson [address] | | | | | | [place] | | | | | | [place] [address] | | | | | | [phone] | | | | | | | | +--------+---------+ + + + documented as of this encounter Visit Diagnoses Not on filedocumented in this encounter"
--- OUTSIDE RECORDS SUMMARY | ~2019-01-15 | XMS | Encounter Summary ---
Demographics + + + | Address | [address] | | | [place] [address] | + + + | Home Phone [...] Team Providers + +------+ + | Care Tile Presser Name | Role | Phone | + +------+ + | Juan Cherry DO | PCP | | + +------+ + Encounter Details +--------+ + + + + | Date | Type | Department | Care Team | Description | +--------+ + + + + | 03/22/ | Hospital | [facility] | Guru Cárdenas, | | | 2013 | Encounter | MED CTR EMERGENCY | MD [address] | | | | | CENTER [address] | [facility] [place] | | | | | [place], [place] | [place] [address] | | | | | [address] | [phone] | | | | | [phone] | | | +--------+ + + + [...] | | | | [facility] [place]. | | | | | | [...] | | | | | | [place] [address] | | | | | | [phone] | | | | | | | [...] + + | [facility] | [place] | | Department [facility] | [facility] | | [ rep ct street[address]+2] [ rep ct [facility] | | st zip] Signed | - IMAGING | | | | | Patient Name: JADYN SCHMITZ | | | Physician: SANG : 1965 Age: 48 Sex: F Unit | | | #: [id number] Exam Date: 03/22/13 Location: | | | ER Report #: [id number] Page: | | | %(RAD)RES..mtdd.print.filter("pg") of %(RAD) | | | RES..mtdd.print.filter("tpg") | | | | | | Accession Number: [id number] | | | PORTABLE CHEST CLINICAL HISTORY: [...] Transcribed Date/Time: 03/22/2013 08:50 | | | Licensed Prosthetist/Orthotist: <<Signature on File>> | | | | | | Cesar Ren MD03/22/13 1800 <Electronically signed by | | | Cesar Ren MD> Cesar Ren MD 03/22/13 | | | 0811 Licensed Prosthetist/Orthotist: [employer] Pseajyjypwugl70/27/14 0850 | | | | | + + + + + + + + | Performing | Address | City/State/Zipcode | Phone Number | | Organization | | | | + + + + + | [facility] | [address] | [place] | [phone] | | [facility] | | [address] | | | - IMAGING | | [...] [address] | [place] | [phone] | | [facility] | | [address] | | | - LABORATORY | | | | + + + + + | [facility] | [address] | [place] | | | [facility] | | [address] | | | - LABORATORY | | [...] + | [facility] | [address] | [place] | [phone] | | [facility] | | [address] | | | - LABORATORY | | | | + + + + + | [facility] | [address] | [place] | | | [facility] | | [address] | | | - LABORATORY | | | | + + + + + documented in this encounter Visit Diagnoses Not on filedocumented in this encounter
--- OUTSIDE RECORDS SUMMARY | ~2019-01-15 | XMS | Encounter Summary ---
Demographics + + + | Address | [address] | | | [place] [address] | + + + | Home Phone [...] Team Providers + +------+ + | Care Lieutenant Ballistics Name | Role | Phone | + [...] [address] | call) | | | | Sharon Rawlins, | [place] | | | | | [place] [address] | [address] | | | | | [phone] | | | +--------+ + + + [...] [place] | | | | | | [id number] | | | | | | | | +--------+---------+ + + + | 11/24/ | Office | Cardiology | [place], | | | 2019 | Visit | | SINDHU Erickson [address] | | | | | | [place] | | | | | | [place] [address] | | | | | | [phone] | | | | | | | | +--------+---------+ + + + documented as of this encounter Visit Diagnoses Not on filedocumented in this encounter"
--- OUTSIDE RECORDS SUMMARY | ~2019-01-15 | XMS | Encounter Summary ---
Demographics + + + | Address | [address] | | | [place] [address] | + + + | Home Phone [...] Team Providers + +------+ + | Care Lineman Name | Role | Phone | + [...] | 05/31/ | Telephone | [facility] | Kade Hoffman MD | Follow-up ( appt | | 2013 | | CARE [address] | [address] | for COPD | | | | [place] | [place] | exacerbation ) | | | | [address] | [address] | | | | | [phone] | | | +--------+ + + + [...] | | | | [place] | | | | | | [address] | | | | | | | | +--------+---------+ + + + | 11/24/ | Office | Cardiology | [place], | | | 2019 | Visit | | SINDHU Erickson [address] | | | | | | [place], | | | | | | [place] [address] | | | | | | [phone] | | | | | | | | +--------+---------+ + + + documented as of this encounter Visit Diagnoses Not on filedocumented in this encounter"
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
--- OUTSIDE RECORDS SUMMARY | ~2019-01-15 | XMS | Encounter Summary ---
Demographics + + + | Address | [address] | | | [place] [address] | + + + | Home Phone [...] Providers + +------+ + | Care Sheet Tailer Name | Role | Phone | + +------+ + PCP | Unavailable | + +------+ + Encounter Details +--------+ + + + + | Date | Type | Department | Care Team | Description | +--------+ + + + + | 11/01/ | [facility] | [facility] | | | | 2008 | Encounter | MED CTR XRAY [address] | | | | | | [place] | | | | | | [place] [address] | | | | | | [phone] | | | +--------+ + + + [...] [place] | | | | | | [address] | | | | | | | | +--------+---------+ + + + | 11/24/ | Office | Cardiology | [place], | | | 2020 | Visit | | SINDHU Erickson [address] | | | | | | [place], | | | | | | [place] [address] | | | | | | [phone] | | | | | | | | +--------+---------+ + + + documented as of this encounter Visit Diagnoses Not on filedocumented in this encounter"
--- OUTSIDE RECORDS SUMMARY | ~2019-01-15 | XMS | Encounter Summary ---
Demographics + + + | Address | [address] | | | [place] [address] | + + + | Home Phone [...] Team Providers + +------+ + | Care Underwriting Specialist Name | Role | Phone | [...] [address] | | | | | [place], | [place], | | | | | [place] [address] | [place] [address] | | | | | [phone] | [phone] | | | | | | | [...] | | | | [place], [place] | | | | | | [address] | | | | | | | | +--------+---------+ + + + | 11/24/ | Office | Cardiology | [place], | | | 2019 | Visit | | SINDHU Erickson [address] | | | | | | [place], | | | | | | [place] [address] | | | | | | [phone] | | | | | | | | +--------+---------+ + + + documented as of this encounter Procedures + +--------+ + + + | Procedure Name | Priori | Date/Time | Associated Diagnosis | Comments | | | ty | | | | + +--------+ + + + | EXTERNAL LAB: [facility] | Routin | 10/28/2017 | | Results [...]
--- OUTSIDE RECORDS SUMMARY | ~2019-01-15 | XMS | Encounter Summary ---
Demographics + + + | Address | [address] | | | [place] [address] | + + + | Home Phone [...] Team Providers + +------+ + | Care Physicist Cryogenics Name | Role | Phone | + [...] | (Primary Dx) | | | | [address] | [address] | | | | | [phone] | | | +--------+---------+ + + + [...] in this encounter Patient Instructions Patient Instructions Lencoh Astorga MD - 01/07/2013 12:51 PM PSTYou [...] [place] | | | | | | [address] | | | | | | | | +--------+---------+ + + + | 11/24/ | Office | Cardiology | [place], | | | 2019 | Visit | | SINDHU Erickson [address] | | | | | | [place], | | | | | | [place] [address] | | | | | | [phone] | | | | | | | | +--------+---------+ + + + documented as of this encounter Results XR Foot Left 3 + Vw (01/07/2013 2:30 PM PST) + + | Specimen | + + | | + + + + + | Narrative | Performed At | + + + | [facility] | [place] | | Department [address] [facility] | [facility] | | [ rep [address]] [ rep [facility] | | st zip] Signed | - IMAGING | | | | | Patient Name: JADYN SCHMITZ | | | Physician: FRANCA : 1965 Age: 47 Sex: F Unit | | | #: [id number] Exam Date: 01/07/13 Location: | | | [facility] Report #: [id number] Page: | | | %(RAD)RES..mtdd.print.filter("pg") of %(RAD) | | | RES..mtdd.print.filter("tpg") | | | | | | Accession Number: [id number] | | | LEFT FOOT, 01/07/2013 CLINICAL [...] Transcribed | | | Date/Time: 01/07/2013 15:01 Drafter Apprentice: | | | <<Signature on File>> | | | Kobe | | | MD Tor01/07/13 1014 <Electronically signed by Kobe Lentz MD> | | | Kobe Lentz MD 01/07/13 1430 Drafter Apprentice: cottonTracksyariel | | | Muuypcorfdpch35/14/13 1501 Lencho Astorga MD | | + + + + + + + + | Performing | Address | City/State/Zipcode | Phone Number | | Organization | | | | + + + + + | [facility] | [address] | [place] | [phone] | | [facility] | | [address] | | | - IMAGING | | | | + + + + + documented in this encounter Visit Diagnoses + + | Diagnosis | + + | Contusion of foot including toes - Primary Contusion of foot | + + documented in this encounter
--- OUTSIDE RECORDS SUMMARY | ~2019-01-15 | XMS | Encounter Summary ---
Demographics + + + | Address | [address] | | | [place] [address] | + + + | Home Phone [...] Providers + +------+ + | Care Personal Lines Underwriter Name | Role | Phone | + [...] | esophagitis | [address] | [place] | | | | | presence not | [place], [place] | [place], | | | | | specified | [address] | [place] [address] | | | | | Procedures | Phone: | Phone: | | | | | [place] Gastric | [phone] | [phone] | | | | | Emptying | Fax: | Fax: | | | | | | [phone] | [phone] | +--------+--------+ + + + + Reason [...] | | Gastroesopha | MD Jesus | [facility] | | | | | geal reflux | [address] | MEDICAL | | | | | disease, | [address] | CENTER [address] | | | | | esophagitis | [address] | [place] | | | | | presence not | [place], [place] | [place], | | | | | specified | [address] | [place] [address] | | | | | Procedures | Phone: | Phone: | | | | | [place] Gastric | [phone] | [phone] | | | | | Emptying | Fax: | Fax: | | | | | | [phone] | [phone] | +--------+--------+ + + + + Encounter Details +--------+ + + + + | Date | Type | Department | Care Team | Description | +--------+ + + + + | 04/02/ | Hospital | [facility] | Dio Yun | Gastroesophageal | | 2017 | Encounter | MED CTR NUCLEAR | MD Jesus [address] | reflux disease, | | | | MEDICINE [address] | [place]SEMARY OLMEDO [address] | esophagitis presence | | | | [place], | [place], [place] | not specified | | | | [place] [address] | [address] | | | | | [phone] | [phone] | | | | | | | [...] | 0 | 10/13/19 | | | Gmcfjibpfr-AGDL-Eeya | mouth as needed. | | | 16 | 7 | | -Cod 21-080-97-30 MG | | | | | | [...] [place] | | | | | | [address] | | | | | | | | +--------+---------+ + + + | 11/24/ | Office | Cardiology | [place], | | | 2019 | Visit | | SINDHU Erickson [address] | | | | | | [place], | | | | | | [place] [address] | | | | | | [phone] | | | | | | | [...]
--- OUTSIDE RECORDS SUMMARY | ~2019-01-15 | XMS | Encounter Summary ---
Demographics + + + | Address | [address] | | | [place] [address] | + + + | Home Phone [...] + + | 04/14/ | Office | [facility] | Brian Miranda | Sprain of chest wall | | 2013 | Visit | OCCUPATIONAL HEALTH | MD [address] | (Primary Dx); Place | | | | [address] | [facility] [facility] | of occurrence, | | | | [address] [place] | [place] [address] | industrial places | | | | [place], [place] | [phone] | and premises | | | | [address] | | | | | | [phone] | | | +--------+---------+ + + + [...] MD - 04/14/2013 11:10 AM PSTSee dictation [id number] lisha d by Brian Miranda MD at 04/14/2013 11:11 AM Brian Avendano MD - 04/14/19 14 12:00 AM PST OCCUPATIONAL MEDICINE [address] [place] [address] [place] [address] FAX: [phone] OFFICE VISIT Claim Number: [id number] Date of Injury: 04/05/2013 Employer: [employer] [...] Srinath Miranda MD / AF JOB #: [id number] signed by Brian Miranda MD at 04/15/2013 5:32 PM PSTd ocumented in this encounter Plan of Treatment +--------+---------+ + + + | Date | Type | Specialty | Care Team | Description | +--------+---------+ + + + | 03/01/ | Office | Pulmonology | Mukul Clark MD | | | 2019 | Visit | | [address] | | | | | | [place] | | | | | | [address] | | | | | | | | +--------+---------+ + + + | 11/24/ | Office | Cardiology | [place], | | | 2019 | Visit | | SINDHU Erickson [address] | | | | | | [place], | | | | | | [place] [address] | | | | | | [phone] | | | | | | | [...]
--- OUTSIDE RECORDS SUMMARY | ~2019-01-15 | XMS | Encounter Summary ---
Demographics + + + | Address | [address] | | | [place] [address] | + + + | Home Phone [...] Team Providers + +------+ + | Care Rand Tacker Name | Role | Phone | + +------+ + | Juan Cherry DO | PCP | | + +------+ + Encounter Details +--------+ + + + + | Date | Type | Department | Care Team | Description | +--------+ + + + + | 09/09/ | Hospital | [facility] | Conversion | Pain | | 2015 | Encounter | CONVERSION [address] | Transaction, | | | | | [address] | Provider Unknown | | | | | [place], [place] | [phone] | | | | | [address] | | | | | | [phone] | | | +--------+ + + + [...] | | | | | order to [facility]. | | | | | [...] | | | | [place] [facility] | | | | | | [address] | | | | | | | | +--------+---------+ + + + | 11/24/ | Office | Cardiology | [place], | | | 2019 | Visit | | SINDHU Erickson [address] | | | | | | [place], | | | | | | [place] [address] | | | | | | [phone] | | | | | | | [...]
--- OUTSIDE RECORDS SUMMARY | ~2019-01-15 | XMS | Encounter Summary ---
Demographics + + + | Address | [address] | | | [place] [address] | + + + | Home Phone [...] Team Providers + +------+ + | Care Drywall Carrier Name | Role | Phone | [...] | with brief | [address] | [place] | | | | n | loss of | [address] | [place], | | | | | consciousnes | [place], | [place] [address] | | | | | s | [place] [address] | Phone: | | | | | Post-concuss | Phone: | [phone] | | | | | ion vertigo | [phone] | Fax: | | | | | [id number] | Fax: | [phone] | | | | | (ICD-10-CM) | [phone] | | | | | | - [...] | Concussion | Aaron Kim MD | Glass Installer [address] | | | Required | | with brief | [address] | [place] | | | | | loss of | [address] | [place], [place] | | | | | consciousnes | [place], | [address] | | | | | s Word | [place] [address] | Phone: | | | | | finding | Phone: | [phone] | | | | | difficulty | [phone] | Fax: | | | | | [id number] | Fax: | [phone] | | | | | (ICD-10-CM) | [phone] | | | | | | - [...] + | 04/11/ | Office | [facility] [place] [place] | Aaron Santoyo, | Concussion with | | 2016 | Visit | PHYSIATRY [address] | [address] | brief loss of | | | | [place], | [place], [place] | consciousness | | | | [place] [address] | [address] | (Primary Dx); | | | | [phone] | | Post-concussion | | | | [...] MD - 04/11/2016 12:43 PM PST [facility] PHYSIATRY [address] [facility] [address] OFFICE NOTE AARON SANTOYO JR, MD Patient: JADYN SCHMITZ Admitting: MR #: [id number] LOC: PT TYPE: Adm Date: 04/11/2016 : 1965 PHYSICAL MEDICINE REHABILITATION PROGRESS NOTE DATE OF : 1965 PRIMARY CARE PROVIDER: Yong Cherry DO DATE OF SERVICE: 04/11/2016 PATIENT IDENTIFICATION: A 51-year-old female with mechanical fall, concussion, and brief loss of consciousness on 03/15/2016. HISTORY OF PRESENT ILLNESS: The patient was last seen by ia 03/28/2016. She had a concuss ion 03/23/2016 [...] Transcribed on 04/11/2016 20:34:55 by ms job# [id number] Confirmation #: [id number] cc: YONG CHERRY DO ichael, Aaron Kim MD - 04/11/2016 11:47 AM PSTThis office note has been dictated. Report Confirmation# [id number] signed by Aaron Santoyo MD at 04/11/2016 [...] | | | | | | [place] [id number] | | | | | | [phone] | | | | | | | [...]
--- OUTSIDE RECORDS SUMMARY | ~2019-01-15 | XMS | Encounter Summary ---
Demographics + + + | Address | [address] | | | [place] [address] | + + + | Home Phone [...] Providers + +------+ + | Care Speech Pathologist Assistant Name | Role | Phone | [...] | | | [place], [place] | [place] [address] | | | | | | [address] | Phone: | | | | | | Phone: | [phone] | | | | | | [phone] | Fax: | | | | | | Fax: | [phone] | | | | | | [phone] | | +--------+ + + + + [...] | cystitis (Primary | | | | [place], [place] | [address] [place] | Dx) | | | | [address] | [place] [address] | | | | | [phone] | | | | | | | [...] [place] | | | | | | [address] | | | | | | | | +--------+---------+ + + + | 11/24/ | Office | Cardiology | [place], | | | 2020 | Visit | | SINDHU Erickson [address] | | | | | | [place], | | | | | | [place] [address] | | | | | | [phone] | | | | | | | [...]
--- OUTSIDE RECORDS SUMMARY | ~2019-01-15 | XMS | Encounter Summary ---
Demographics + + + | Address | [address] | | | [place] [address] | + + + | Home Phone [...] Providers + +------+ + | Care Rail Car Operator Name | Role | Phone [...] [address] | | | | | [place], | [place] | | | | | [place] [address] | [address] | | | | | [phone] | | | +--------+--------+ + + + [...] [place] | | | | | | [address] | | | | | | | | +--------+---------+ + + + | 11/24/ | Office | Cardiology | [place], | | | 2019 | Visit | | SINDHU Erickson [address] | | | | | | [place], | | | | | | [place] [address] | | | | | | [phone] | | | | | | | | +--------+---------+ + + + documented as of this encounter Visit Diagnoses Not on filedocumented in this encounter"
--- OUTSIDE RECORDS SUMMARY | ~2019-01-15 | XMS | Encounter Summary ---
Demographics + + + | Address | [address] | | | [place] [address] | + + + | Home Phone [...] Team Providers + +------+ + | Care Relocation Manager Name | Role | Phone | [...] (Primary Dx); | | | | [address], | address | [place] | | | | [address] [place] | | | | | | [place] [address] | | | | | | [phone] | | | +--------+ + + + [...] [place] | | | | | | [address] | | | | | | | | +--------+---------+ + + + | 11/24/ | Office | Cardiology | [place], | | | 2019 | Visit | | SINDHU Erickson [address] | | | | | | [place], | | | | | | [place] [address] | | | | | | [phone] | | | | | | | [...]
--- OUTSIDE RECORDS SUMMARY | ~2019-01-15 | XMS | Encounter Summary ---
Demographics + + + | Address | [address] | | | [place] [address] | + + + | Home Phone [...] Providers + +------+ + | Care Parts Sales Counterperson Name | Role | Phone | + +------+ + | Juan Cherry DO | PCP | | + +------+ + Encounter Details +--------+ + + + + | Date | Type | Department | Care Team | Description | +--------+ + + + + | 03/05/ | Hospital | [facility] | Conversion | Pain | | 2017 | Encounter | CONVERSION [address] | Transaction, | | | | | [address] | Provider Unknown | | | | | [place], [place] | [phone] | | | | | [address] | | | | | | [phone] | | | +--------+ + + + [...] | | | | | [facility]. | | | | | | [...] | 0 | 10/13/19 | | | Oqtavyegvr-HOEU-Upqc | mouth as needed. | | | 16 | 7 | | -Cod [id number] MG | | | | | | [...] [place] | | | | | | [id number] | | | | | | | | +--------+---------+ + + + | 11/24/ | Office | Cardiology | [place], | | | 2019 | Visit | | SINDHU Erickson [address] | | | | | | [place] | | | | | | [place] [address] | | | | | | [phone] | | | | | | | [...]
--- OUTSIDE RECORDS SUMMARY | ~2019-01-15 | XMS | Encounter Summary ---
Demographics + + + | Address | [address] | | | [place] [address] | + + + | Home Phone [...] Providers + +------+ + | Care Engine Test Cell Technician Name | Role | Phone | [...] | | | | | pulmonary | [address] | [address] | | | | | disease, | [place], | [place], [place] | | | | | unspecified | [place] [address] | [address] | | | | | COPD type | Phone: | Phone: | | | | | ([facility]) | [phone] | [phone] | | | | | | Fax: | Fax: | | | | | | [phone] | [phone] | +--------+ + + + + + Encounter Details +--------+ + + + + | Date | Type | Department | Care Team | Description | +--------+ + + + + | 02/03/ | Orders Only | [facility] [place] | Jared Mcdonough, | Chronic obstructive | | 2015 | | CARDIOLOGY [address] | [address] | pulmonary disease, | | | | [place], | [place], | unspecified COPD | | | | [place] [address] | [place] [address] | type (HCC) (Primary | | | | [phone] | [phone] | Dx) | | | | | [...] [place] | | | | | | [address] | | | | | | | | +--------+---------+ + + + | 11/24/ | Office | Cardiology | [place], | | | 2019 | Visit | | SINDHU Erickson [address] | | | | | | [place], | | | | | | [place] [address] | | | | | | [phone] | | | | | | | | +--------+---------+ + + + + + +--------+ + + | Name | Type | Priori | Associated Diagnoses | Order Schedule | | | | ty | | | + + +--------+ + + | [facility] REFERRAL TO [facility] | Outpatient | Routin | Chronic [...]
--- OUTSIDE RECORDS SUMMARY | ~2019-01-15 | XMS | Encounter Summary ---
Demographics + + + | Address | [address] | | | [place] [address] | + + + | Home Phone [...] Team Providers + +------+ + | Care Estate Manager Name | Role | Phone | [...] + + | 05/19/ | Office | [facility] | Brian Miranda | Sprain of chest wall | | 2013 | Visit | MED CTR THERAPY PT | MD Ozzy [address] | (Primary Dx) | | | | OP [address] | [facility] | | | | | [place] | [place] [address] | | | | | [address] | [phone] | | | | | [phone] | | | | | | | Janey Low, | | | | | | PARCEL POST OFFICER [address] | | | | | | [facility] [place] | | | | | | [address] | | | | | | [phone] | | | | | | | [...] of this encounter Progress Notes Janey Low, PARCEL POST OFFICER - 05/19/2013 1:38 PM PDTFormatting of this note might be different f rom the original. [facility] CTR THERAPY PT OP [address] [place] [address] Physical Therapy Daily Treatment Note Date: 05/19/2013 [...] [place]EN[place] | | | | | | [facility] | | | | | | [address] | | | | | | | | +--------+---------+ + + + | 11/24/ | Office | Cardiology | [place], | | | 2020 | Visit | | SINDHU Erickson [address] | | | | | | [address] [place], | | | | | | [place] [address] | | | | | | [phone] | | | | | | | | +--------+---------+ + + + documented as of this encounter Visit Diagnoses + + | Diagnosis | + + | Sprain of chest wall - Primary Other specified sites of sprains and strains | + + documented in this encounter
--- OUTSIDE RECORDS SUMMARY | ~2019-01-15 | XMS | Encounter Summary ---
Demographics + + + | Address | [address] | | | [place] [address] | + + + | Home Phone [...] Providers + +------+ + | Care Motor Racer Name | Role | Phone | [...] + + | 10/05/ | Office | 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 I reviewed the notes from Dr Chris Alarcon in [place], [place].It indicates that patient had CPAP intolerance [...] day f or her COPD through her legal arbitrator. We performed a CPAP titration study on [...] spen t below SpO2 of 90% was0%.Transcutaneous RD1iplkyf 35-37mmHg during supine wake, and remained between [...] Historical Provider, Yinka Witt Respiratory Therapy Supplies [facility] Please provide patient with necessary CPAP supplies (she did not specify, okay to send order as appropriate) Diagnosis Code(s)327.23 . Length of Need 99 months. Please send order to [facility]. 01/13/13 Yes Loreta London MD Respiratory Therapy Supplies [facility] Change CPAP back to 11-14 cm H2O. All necessary supplies. No oxygen bleed in. Diagnosis Code(s)327.23. Length of Need: Lifetime. Please send order to [facility]. This is not a [...] her awakenings at night, I will ask [place] to check her machine for adjusting humidity [...] this chart may have been created with Big Stage voice recognition software. Occasi onal wrong-word or [...] | | | | [place] | | | | | | [address] | | | | | | | | +--------+---------+ + + + | 11/24/ | Office | Cardiology | [place], | | | 2019 | Visit | | SINDHU Erickson [address] | | | | | | [place], | | | | | | [place] [address] | | | | | | [phone] | | | | | | | [...]
--- OUTSIDE RECORDS SUMMARY | ~2019-01-15 | XMS | Encounter Summary ---
Demographics + + + | Address | [address] | | | [place] [address] | + + + | Home Phone [...] Team Providers + +------+ + | Care Alley Cleaner Name | Role | Phone | [...] W | | | | | | [place], | | | | | | [place] [address] | | | | | | [phone] | | | +--------+ + + + [...] Progress Notes Kathi Soto Speech Pathologist - 06/27/2016 11:26 AM [facility] [address] [facility] [address] Cancellation/No Show Date: 06/27/2016 Patient Information Patient [...] [place] | | | | | | [id number] | | | | | | | | +--------+---------+ + + + | 11/24/ | Office | Cardiology | [place], | | | 2019 | Visit | | SINDHU Erickson [address] | | | | | | [place] | | | | | | [place] [address] | | | | | | [phone] | | | | | | | | +--------+---------+ + + + documented as of this encounter Visit Diagnoses Not on filedocumented in this encounter"
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
--- OUTSIDE RECORDS SUMMARY | ~2019-01-15 | XMS | Encounter Summary ---
Demographics + + + | Address | [address] | | | [place] [address] | + + + | Home Phone [...] Team Providers + +------+ + | Care Reeling Machine Setup Operator Name | Role | Phone | [...] | cystitis (Primary | | | | [place], [place] | [address] | Dx) | | | | [address] | [place] [address] | | | | | [phone] | [phone] | | | | | | | [...] [place] | | | | | | [address] | | | | | | | | +--------+---------+ + + + | 11/24/ | Office | Cardiology | [place], | | | 2019 | Visit | | SINDHU Erickson [address] | | | | | | [place], | | | | | | [place] [address] | | | | | | [phone] | | | | | | | | +--------+---------+ + + + documented as of this encounter Visit Diagnoses + + | Diagnosis | + + | Interstitial cystitis - Primary Chronic interstitial cystitis | + + documented in this encounter"
--- OUTSIDE RECORDS SUMMARY | ~2019-01-15 | XMS | Encounter Summary ---
Demographics + + + | Address | [address] | | | [place] [address] | + + + | Home Phone [...] Providers + +------+ + | Care Gas Plant Repairer Name | Role | Phone | [...] [address] | | | | | [place], | [place] | | | | | [place] [address] | [address] | | | | | [phone] | | | +--------+--------+ + + + [...] [place] | | | | | | [address] | | | | | | | | +--------+---------+ + + + | 11/24/ | Office | Cardiology | [place], | | | 2019 | Visit | | SINDHU Erickson [address] | | | | | | [place] | | | | | | [place] [address] | | | | | | [phone] | | | | | | | | +--------+---------+ + + + documented as of this encounter Visit Diagnoses Not on filedocumented in this encounter"
--- OUTSIDE RECORDS SUMMARY | ~2019-01-15 | XMS | Encounter Summary ---
Demographics + + + | Address | [address] | | | [place] [address] | + + + | Home Phone [...] + +------+ + | Care Software Development Analyst Name | Role | Phone | [...] + + | 04/12/ | Office | [facility] | [place], | COPD exacerbation | | 2013 | Visit | PULMONARY [address] | Loreta Alonso MD | ([facility]) (Primary Dx); | | | | [place], | | Sprain of chest | | | | [place] [address] | | wall; GARRY | | | | [phone] | | (obstructive sleep | | | [...] perform them regularly on you r own. 1648-7607 [facility], [address] [place] [address], [place] [address]. All rights reserve d. This information is not intended as a substitute for professional medical care. Always fo llow your healthcare professional's instructions. documented in this encounter Progress Notes Loreta London MD - 04/12/2013 9:12 AM PSTFormatting of this note might be differe nt from the original. Pulmonary Follow Up Note MD [place] Pulmonary and Critical Care [facility] [address] [place], [address] [facility] Rosario Malik is a 48 y.o. [...] and machine. She took it in to [facility] today for servicing. 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 3 tablet 0 Respiratory Therapy Supplies [facility] Please provide patient with necessary CPAP supplies ( she did not specify, okay to send order as appropriate) Diagnosis Code(s)327.23 . Length of Need 99 months. Please send order to [facility]. 1 each 0 Respiratory Therapy Supplies [facility] Change CPAP back to 11-14 cm H2O. All necessary suppl ies. No oxygen bleed in. Diagnosis Code(s)327.23. Length of Need: Lifetime. Please send orde r to [facility]. This is not a new [...] exacerbation to exacerbat ion since return from [place] without clear explanation. Factors to consider: medication [...] not been using her CPAP as [facility] as she should per last downloads [...] made to ensure accuracy; however, inadvertent computerized culinary arts teacher errors may be pre sent. documented [...] [place] | | | | | | [id number] | | | | | | | | +--------+---------+ + + + | 11/24/ | Office | Cardiology | [place], | | | 2019 | Visit | | SINDHU Erickson [address] | | | | | | [place], | | | | | | [place] [address] | | | | | | [phone] | | | | | | | | +--------+---------+ + + + + + +--------+ + + | Name | Type | Priori | Associated Diagnoses | Order Schedule | | | | ty | | | + + +--------+ + + | Ambulating oximetry, | Respiratory | Routin | COPD exacerbation | Expected: | | clinic, | Care | e | ([facility]) | 04/12/2013, Expires: | | qualification | [...] + + | Performing | Address | City/[facility]/[place] | Phone Number | | Organization | | | | + + + + + | [facility] | [address] | [place] | [phone] | | [facility] | | [address] | | | - LABORATORY | | | | + + + + + | [facility] | [address] | [place] | | | [facility] | | [address] | | | - LABORATORY | | [...]
--- OUTSIDE RECORDS SUMMARY | ~2019-01-15 | XMS | Encounter Summary ---
Demographics + + + | Address | [address] | | | [place] [address] | + + + | Home Phone [...] Providers + +------+ + | Care Insurance Representative Name | Role | Phone | [...] | 06/27/ | Telephone | [facility] | Weber, Andriy | Other | | 2018 | | [address] | MD Robert [address] | | | | | [place] | [facility] | | | | | [address] | [place] [address] | | | | | [phone] | [phone] | | | | | | | [...] [place] | | | | | | [address] | | | | | | | | +--------+---------+ + + + | 11/24/ | Office | Cardiology | [place], | | | 2019 | Visit | | SINDHU Erickson [address] | | | | | | [place] | | | | | | [place] [address] | | | | | | [phone] | | | | | | | | +--------+---------+ + + + documented as of this encounter Visit Diagnoses Not on filedocumented in this encounter"
--- OUTSIDE RECORDS SUMMARY | ~2019-01-15 | XMS | Encounter Summary ---
Demographics + + + | Address | [address] | | | [place] [address] | + + + | Home Phone [...] + +------+ + | Care Call Center Agent Name | Role | Phone [...] Headache | Shashi Witt, | [address] | | | | | Pituitary | MD Need | [place], | | | | | tumor | updated | [place] | | | | | Procedures | address | [address] | | | | | CT Head w wo | | Phone: | | | | | Contrast | | [phone] | | | | | | | Fax: | | | | | | | [phone] | +--------+--------+ + + + + Reason [...] Headache | Shashi Witt, | [address] | | | | | Pituitary | MD Need | [place], | | | | | tumor | updated | [place] | | | | | Procedures | address | [address] | | | | | CT Head w wo | | Phone: | | | | | Contrast | | [phone] | | | | | | | Fax: | | | | | | | [phone] | +--------+--------+ + + + + Encounter Details +--------+ + + + + | Date | Type | Department | Care Team | Description | +--------+ + + + + | 12/17/ | Hospital | [facility] | Shashi Segovia | Headache; | | 2013 | Encounter | MED CTR CT [address] | MD Miryam Need updated | Pituitary tumor | | | | [place], | address | | | | | [place] [address] | | | | | | [phone] | | | +--------+ + + + [...] | | | [facility]. | | | | | | [...] [place] | | | | | | [address] | | | | | | | | +--------+---------+ + + + | 11/24/ | Office | Cardiology | [place], | | | 2019 | Visit | | SINDUH Erickson [address] | | | | | | [place], | | | | | | [place] [address] | | | | | | [phone] | | | | | | | [...] + | MISCELLANEOUS LAB | | | [phone] | + +---------+ + + | MISCELANIOUS LAB | | | [phone] | + +---------+ + + documented in [...]
--- OUTSIDE RECORDS SUMMARY | ~2019-01-15 | XMS | Encounter Summary ---
Demographics + + + | Address | [address] | | | [place] [address] | + + + | Home Phone [...] Providers + +------+ + | Care Hospital Receptionist Name | Role | Phone | [...] + + | 09/06/ | Telephone | [facility] | Kevin Sandoval, | Other (increased | | 2014 | | PULMONARY [address] | MD [address] | shortness of breath) | | | | [place], | [place], [place] | | | | | [place] [address] | [address] | | | | | [phone] | | | +--------+ + + + [...] [place] | | | | | | [address] | | | | | | | | +--------+---------+ + + + | 11/24/ | Office | Cardiology | [place], | | | 2019 | Visit | | SINDHU Erickson [address] | | | | | | [place], | | | | | | [place] [address] | | | | | | [phone] | | | | | | | | +--------+---------+ + + + documented as of this encounter Visit Diagnoses Not on filedocumented in this encounter"
--- OUTSIDE RECORDS SUMMARY | ~2019-01-15 | XMS | Encounter Summary ---
Demographics + + + | Address | [address] | | | [place] [address] | + + + | Home Phone [...] Team Providers + +------+ + | Care Sludge Control Attendant Name | Role | Phone | [...] [address] | breath) | | | | [place], | [place] | | | | | [place] [address] | [address] | | | | | [phone] | | | +--------+ + + + [...] [place] | | | | | | [address] | | | | | | | | +--------+---------+ + + + | 11/24/ | Office | Cardiology | [place], | | | 2019 | Visit | | SINDHU Erickson [address] | | | | | | [place], | | | | | | [place] [address] | | | | | | [phone] | | | | | | | | +--------+---------+ + + + documented as of this encounter Visit Diagnoses Not on filedocumented in this encounter"
--- OUTSIDE RECORDS SUMMARY | ~2019-01-15 | XMS | Encounter Summary ---
Demographics + + + | Address | [address] | | | [place] [address] | + + + | Home Phone [...] Team Providers + +------+ + | Care Cage Unloader Name | Role | Phone | + [...] sleep apnea) | | | | [address] [place] | [place] | (Primary Dx) | | | | [place] [address] | [address] | | | | | [phone] | | | +--------+---------+ + + + [...] machine. She has tried to get her [employer]SI MET-TECH to add the connection part for oxygen to her machine, but it has not happene d. Now she only uses her 3 per minute of supplemental oxygen at night and she has not been u sing her machine for the past few months. She was already on oxygen during the day for her COPD through her machine load clerk. She says since she stopped using her [...] years before she was switched to bilevel [id number]. I reviewed the notes from Dr Chris Alarcon in [place], [place].It indicates that patient had CPAP intolerance [...] Daily. Yes Historical ProviderYinka Respiratory Therapy Supplies [facility] Please provide patient with necessary CPAP supplies (she did not specify, okay to send order as appropriate) Diagnosis Code(s)327.23 . Length of Need 99 months. Please send order to [facility]. 01/13/13 Yes Loreta London MD Respiratory Therapy Supplies [facility] Change CPAP back to 11-14 cm H2O. All necessary supplies. No oxygen bleed in. Diagnosis Code(s)327.23. Length of Need: Lifetime. Please send order to [facility]. [...] times daily. 11/07/11 Yes DATA MICHELE RATION UQIN SR PHYSICAL EXAM BP 100/70 | Pulse [...] was performed on 04/17/15( Dr. Alarcon in [place], [place]) indicated that . Bilevel-ST was prescribed [...] evidence for hypoventilation. Date, I personally called [facility] and discussed this with one of the staff. If the machine c ould be set up on bilevel-S this should be done(today, I tried to check it but after about 1 0 minutes the machine still was reading the card, and I wonder if it functions properly). Ot herwise, the machine should be replaced with a bilevel-S machine. A staff from [facility] is to c all me tomorrow and [...] this chart may have been created with Py[employer]no voice recognition software. Occasi onal wrong-word or [...] | | | | [place] | | | | | | [address] | | | | | | | | +--------+---------+ + + + | 11/24/ | Office | Cardiology | [place], | | | 2019 | Visit | | GeorginaSINDHU reynoso [address] | | | | | | [place], | | | | | | [place] [address] | | | | | | [phone] | | | | | | | | +--------+---------+ + + + documented as of this encounter Visit Diagnoses + + | Diagnosis | + + | GARRY (obstructive sleep apnea) - Primary Obstructive sleep apnea (adult) (pediatric) | + + documented in this encounter
--- OUTSIDE RECORDS SUMMARY | ~2019-01-15 | XMS | Encounter Summary ---
Demographics + + + | Address | [address] | | | [place] [address] | + + + | Home Phone [...] Team Providers + +------+ + | Care Dumper Central Concrete Mixing Plant Name | Role | Phone | + [...] [place] | treatments) | | | | [address] | [place] [address] | | | | | [phone] | [phone] | | | | | | | [...] [place] | | | | | | [id number] | | | | | | | | +--------+---------+ + + + | 11/24/ | Office | Cardiology | [place], | | | 2019 | Visit | | SINDHU Erickson [address] | | | | | | [place] | | | | | | [place] [address] | | | | | | [phone] | | | | | | | | +--------+---------+ + + + documented as of this encounter Visit Diagnoses Not on filedocumented in this encounter"
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
--- OUTSIDE RECORDS SUMMARY | ~2019-01-15 | XMS | Encounter Summary ---
Demographics + + + | Address | [address] | | | [place] [address] | + + + | Home Phone [...] Providers + +------+ + | Care Steamfitter Supervisor Name | Role | Phone | [...] + + | 08/11/ | [facility] | [facility] [place] | Kevin Sandoval, | Other (decision to | | 2013 | | PULMONARY [address] | MD [address] | quit job) | | | | [place], | [place] | | | | | [place] [address] | [phone] | | | | | [phone] | | | +--------+ + + + [...] | | | | | | [place] [address] | | | | | | [phone] | | | | | | | | +--------+---------+ + + + documented as of this encounter Visit Diagnoses + + | Diagnosis | + + | Central sleep apnea Primary central sleep apnea | + + documented in this encounter"
--- OUTSIDE RECORDS SUMMARY | ~2019-01-15 | XMS | Encounter Summary ---
Demographics + + + | Address | [address] | | | [place] [address] | + + + | Home Phone [...] Providers + +------+ + | Care General Accounting Clerk Name | Role | Phone | [...] | | | | [facility] | [address] | [address] | | | | | EXERCISE | [place], | [place] | | | | | | [place] [address] | [place], [place] | | | | | | Phone: | [address] | | | | | | [phone] | Phone: | | | | | | Fax: | [phone] | | | | | | [phone] | Fax: | | | | | | | [phone] | +--------+--------+ + + + + Encounter Details +--------+---------+ + + + | Date | Type | Department | Care Team | Description | +--------+---------+ + + + | 07/04/ | Office | [facility] | Jared Mcdonough, | Chronic obstructive | | 2017 | Visit | MED CTR CARDIAC | MD Migdalia King | pulmonary disease, | | | | REHABILITATION [address] [place], | unspecified COPD | | | | [address] [place] | [place] [address] | type (HCC) (Primary | | | | [place] [address] | [phone] | Dx); Mild persistent | | | | [phone] | | asthma without | | | [...] [place] | | | | | | [address] | | | | | | | | +--------+---------+ + + + | 11/24/ | Office | Cardiology | [place], | | | 2019 | Visit | | SINDHU Erickson [address] | | | | | | [place], | | | | | | [place] [address] | | | | | | [phone] | | | | | | | [...]
--- OUTSIDE RECORDS SUMMARY | ~2019-01-15 | XMS | Encounter Summary ---
Demographics + + + | Address | [address] | | | [place] [address] | + + + | Home Phone [...] Providers + +------+ + | Care Patient Flow Coordinator Name | Role | Phone | [...] | | | | not | | [place] [address] | | | | | elsewhere | | Phone: | | | | | classified | | [phone] | | | | | Procedures | | Fax: | | | | | OFFICE VISIT | | [phone] | | | | | REGULAR | | | +--------+--------+ + + + + Encounter Details +--------+---------+ + + + | Date | Type | Department | Care Team | Description | +--------+---------+ + + + | 08/05/ | Office | [facility] | Kevin Sandoval, | Preventative health | | 2013 | Visit | PULMONARY [address] | MD [address] | care (Primary Dx); | | | | [place], | [place], [place] | Hypoxemia; [place] | | | | [place] [address] | [address] | sleep apnea | | | | [phone] | | | +--------+---------+ + + + [...] rom the original. Pulmonary Follow Up 08/05/2013 [facility] Rosariorickey Malik is a 48 y.o. [...] [facility]) 10/28/2012 Overview: Managed by [facility] along with hypothyroidism Osteoarthritis Social History: She [...] d 99 months. Please send order to [facility]., Disp: 1 each, Rfl: 0 Respiratory Therapy Supplies MISC, Change CPAP back to 11-14 cm H2O. All necessary supplies . No oxygen bleed in. Diagnosis Code(s)327.23. Length of Need: Lifetime. [facility] This is not a new order, [...] | | | | | [facility] [place] | | | | | | [address] | | | | | | | | +--------+---------+ + + + | 11/24/ | Office | Cardiology | [place], | | | 2020 | Visit | | SINDHU Erickson [address] | | | | | | [place], | | | | | | [place] [address] | | | | | | [phone] | | | | | | | [...] Primary Routine general medical examination at a [facility] | | care facility | + + | Hypoxemia | + + | Central sleep apnea Primary central sleep apnea | + + documented in this encounter
--- OUTSIDE RECORDS SUMMARY | ~2019-01-15 | XMS | Encounter Summary ---
Demographics + + + | Address | [address] | | | [place] [address] | + + + | Home Phone [...] Team Providers + +------+ + | Care Early Childhood Worker Name | Role | Phone | + +------+ + | Juan Cherry DO | PCP | | + +------+ + Encounter Details +--------+ + + + + | Date | Type | Department | Care Team | Description | +--------+ + + + + | 04/05/ | Hospital | [facility] | Yesenia Landin | | | 2013 | Encounter | MED CTR EMERGENCY | DO Cipriano Christin TOMAS | | | | | CENTER [address] | [address] [place], [place] | | | | | [place], [place] | [address] | | | | | [address] | | | | | | [phone] | Ozzy Aponte | | | | | | Ozzie Kebede MD | | | | | | [address] | | | | | | [place], [place] | | | | | | [address] | | | | | | | [...] | | | order to [facility]. | | | | | + [...] | | | | | [facility]. | | | | | | [...] [place] | | | | | | [address] | | | | | | | | +--------+---------+ + + + | 11/24/ | Office | Cardiology | [place] | | | 2019 | Visit | | SINDHU Erickson [address] | | | | | | [place], | | | | | | [place] [address] | | | | | | [phone] | | | | | | | [...] Performed At | + + + | [facility] | [place] | | Department [address] [facility] | [facility] | | [ rep [address]] [ rep [facility] | | st zip] Signed | - IMAGING | | | | | Patient Name: JADYN SCHMITZ | | | Physician: MARY : 1965 Age: 48 Sex: F Unit | | | #: [id number] Exam Date: 04/05/13 Location: | | | ER Report #: [id number] Page: | | | %(RAD)RES..mtdd.print.filter("pg") of %(RAD) | | | RES..mtdd.print.filter("tpg") | | | | | | Accession Number: [id number] | | | TWO VIEWS OF THE [...] Transcribed Date/Time: 04/06/2013 | | | 08:52 Grape Crusher: <<Signature | | | on File>> | | | Aditya Alonso | | | MD Claudio04/06/13 2312 <Electronically signed by Aditya Snyder MD> | | | Aditya Snyder MD 04/06/1345 Grape Crusher: | | | Webmedx Lewpfsqxdfbys54/11/14 0852 | | + + + + + + + + | Performing | Address | City/State/[facility] | Phone Number | | Organization | | | | + + + + + | [facility] | [address] | [place] | [phone] | | [facility] | | [address] | | | - IMAGING | | | | + + + + + XR Chest PA and Lateral (04/06/2013 8:14 AM PST) + + | Specimen | + + | | + + + + + | Narrative | Performed At | + + + | [facility] | [place] | | Department [address] [facility] | [facility] | | [ rep ct [address]] [ rep [facility] | | [facility]] Signed | - IMAGING | | | | | Patient Name: JADYN SCHMITZ W | | | Physician: MARY : 1965 Age: 48 Sex: F Unit | | | #: [id number] Exam Date: 04/05/13 Location: | | | ER Report #: [id number] Page: | | | %(RAD)RES..mtdd.print.filter("pg") of %(RAD) | | | RES..mtdd.print.filter("tpg") | | | | | | Accession Number: [id number] | | | PA AND LATERAL CHEST: [...] Transcribed Date/Time: 04/06/2013 08:17 | | | Grape Crusher: <<Signature on File>> | | | | | | Aditya Snyder MD04/06/132 <Electronically signed by Aditya Alonso | | | Claudio PAUL> Aditya Snyder MD 04/06/13813 | | | Grape Crusher: Neal Nqtltrptygbzv27/11/14816 | | | | | + + + + + + + + | Performing | Address | City/State/Zipcode | Phone Number | | Organization | | | | + + + + + | [facility] | [address] | [place] | [phone] | | [facility] | | [address] | | | - IMAGING | | | | + + + + + documented in this encounter Visit Diagnoses Not on filedocumented in this encounter
--- OUTSIDE RECORDS SUMMARY | ~2019-01-15 | XMS | Encounter Summary ---
Demographics + + + | Address | [address] | | | [place] [address] | + + + | Home Phone [...] Team Providers + +------+ + | Care Reamer Hand Name | Role | Phone | [...] Reynolds RN | | | | | [place], | | | | | | [place] [address] | | | | | | [phone] | | | +--------+ + + + [...] [place] | | | | | | [id number] | | | | | | | | +--------+---------+ + + + | 11/24/ | Office | Cardiology | [place], | | | 2019 | Visit | | SINDHU Erickson [address] | | | | | | [place] | | | | | | [place] [address] | | | | | | [phone] | | | | | | | | +--------+---------+ + + + documented as of this encounter Visit Diagnoses Not on filedocumented in this encounter"
--- OUTSIDE RECORDS SUMMARY | ~2019-01-15 | XMS | Encounter Summary ---
Demographics + + + | Address | [address] | | | [place] [address] | + + + | Home Phone [...] Team Providers + +------+ + | Care Ems Coordinator Name | Role | Phone | [...] | Loreta Alonso MD | ([facility]) (Primary Dx); | | | | [place], | | GARRY (obstructive | | | | [place] [address] | | sleep apnea); | | | | [phone] | | Central sleep apnea; | | [...] MD [place] [facility] [address] [place], [address] HPI Rosario Malik is a 48 y.o. [...] left her on the Spiriva (started in [place]), and continued Adva ir. I had stop [...] cysts, not cancer Colonoscopy 03/2010 Colonoscopy 1995 [facility] Social History: History Social History Marital Status: Single Spouse Name: N/A Number of Children: 1 Years of Education: 13 Occupational History [employer] Social History Main Topics Smoking status: [...] Need: Lifetime. Please send orde r to [facility]. This is not a new order, [...] Data: CPAP Data: Dates: 09/29/12-12/27/12 Machine type: [employer] auto CPAP Home Health Company: [employer] CPAP Pressure: 11-14 cmH2O Median Titrated Pressure: 11.6 cmH2O 95%tile Pressure: 13.7 cmH2O Maximum Pressure: 13.9 cmH2O AHI: 2.4 events/hour Total number of days: 90 Number of days used: 80 Median daily usage: 4:27 hours Percent of days used for more than 4 hours: 48 % Median leak: 0.0 L/min Records from [place] ER visits and clinic visits are reviewed. It is noted that she did ac tually go off of her medications for a period of time when she moved. Immunization History Administered Date(s) Administered INFLUENZA, >= 4YO W/PRESERVATIVE IM 12/12/2010 INFLUENZA, PRESERVATIVE FREE IM 12/13/2011, 11/27/2012 Pneumococcal (Adult) 02/24/2011 Tdap 01/22/2008 Assessment 1. COPD exacerbation - On prednisone. Poor medication compliance, here and in [place]. We have ordered her Spiriva. I told [...] made to ensure accuracy; however, inadvertent computerized surgical appliance fitter errors may be pre sent. documented in [...] W | | | | | | [place], | | | | | | [place] [address] | | | | | | [phone] | | | | | | | [...]
--- OUTSIDE RECORDS SUMMARY | ~2019-01-15 | XMS | Encounter Summary ---
Demographics + + + | Address | [address] | | | [place] [address] | + + + | Home Phone [...] Providers + +------+ + | Care Building Custodian Name | Role | Phone | + [...] [address] | | | | | [place], | [place] | | | | | [place] [address] | [address] | | | | | [phone] | | | +--------+--------+ + + + [...] [place] | | | | | | [address] | | | | | | | | +--------+---------+ + + + | 11/24/ | Office | Cardiology | [place], | | | 2019 | Visit | | SINDHU Erickson [address] | | | | | | [place] | | | | | | [place] [address] | | | | | | [phone] | | | | | | | | +--------+---------+ + + + documented as of this encounter Visit Diagnoses Not on filedocumented in this encounter"
--- OUTSIDE RECORDS SUMMARY | ~2019-01-15 | XMS | Encounter Summary ---
Demographics + + + | Address | [address] | | | [place] [address] | + + + | Home Phone [...] Team Providers + +------+ + | Care Escrow Agent Name | Role | Phone | + +------+ + PCP | Unavailable | + +------+ + Encounter Details +--------+ + + + + | Date | Type | Department | Care Team | Description | +--------+ + + + + | 11/27/ | Hospital | [facility] | Ozzy Delcid, | | | 2009 | Encounter | MED CTR LABORATORY | MD [address] | | | | | [address] [place] | [place], [place] | | | | | [place], [place] | [address] | | | | | [address] | | | | | | [phone] | | | +--------+ + + + [...] [place] | | | | | | [address] | | | | | | | | +--------+---------+ + + + | 11/24/ | Office | Cardiology | [place], | | | 2019 | Visit | | SINDHU Erickson [address] | | | | | | [place] | | | | | | [place] [address] | | | | | | [phone] | | | | | | | | +--------+---------+ + + + documented as of this encounter Visit Diagnoses Not on filedocumented in this encounter"
--- OUTSIDE RECORDS SUMMARY | ~2019-01-15 | XMS | Encounter Summary ---
Demographics + + + | Address | [address] | | | [place] [address] | + + + | Home Phone [...] Providers + +------+ + | Care Director Statistical Programming Name | Role | Phone | + [...] sleep | MD [address] | | | | | apnea) | [address] | [place], | | | | | Central | [place], | [place] [address] | | | | | sleep apnea | [place] [address] | Phone: | | | | | | | [phone] | | | | | | | Fax: | | | | | | | [phone] | +--------+ + + + + + Encounter Details +--------+---------+ + + + | Date | Type | Department | Care Team | Description | +--------+---------+ + + + | 04/07/ | Office | [facility] | Maxim Delgado PA | GARRY on CPAP (Primary | | 2012 | Visit | SLEEP DISORDER [address] | [address] | Dx); Organic | | | | [address] [place] | [place], [place] | insomnia, | | | | [place] [address] | [address] | unspecified | | | | [phone] | | | +--------+---------+ + + + [...] S9 with full face mask obtained from: [facility] pressure is: 8-12 cm 95%: [...] She went to get that mask from [facility], but it has been discontinued. The mask [...] months, sooner prn. Fifteen minutes were spent [id number], wi th the majority of time spent [...] [place] | | | | | | [address] | | | | | | | | +--------+---------+ + + + | 11/24/ | Office | Cardiology | [place], | | | 2019 | Visit | | SINDHU Erickson [address] | | | | | | [place] | | | | | | [place] [address] | | | | | | [phone] | | | | | | | | +--------+---------+ + + + documented as of this encounter Visit Diagnoses + + | Diagnosis | + + | GARRY on CPAP - Primary Obstructive sleep apnea (adult) (pediatric) | + + | Organic insomnia, unspecified | + + documented in this encounter"
--- OUTSIDE RECORDS SUMMARY | ~2019-01-15 | XMS | Encounter Summary ---
Demographics + + + | Address | [address] | | | [place] [address] | + + + | Home Phone [...] Team Providers + +------+ + | Care Induction Coordination Engineer Name | Role | Phone | [...] on | MED CTR THERAPY PT | [facility] [address] | | | | | OP [address] | [place], [place] | | | | | [place], [place] | [address] | | | | | [address] | [phone] | | | | | [phone] | | | +--------+ + + + [...] of this encounter Progress Notes Janey Low, [facility] - 06/02/2013 9[facility]39 [facility] [address] [place] [address] Cancellation/No Show Date: 06/02/2013 Patient Information Patient [...] Sawyer | | | | | | [id number] | | | | | | | | +--------+---------+ + + + | 11/24/ | Office | Cardiology | Flores | | | 2019 | Visit | | SINDHU Erickson W | | | | | | [place], | | | | | | [place] [address] | | | | | | [phone] | | | | | | | | +--------+---------+ + + + documented as of this encounter Visit Diagnoses Not on filedocumented in this encounter"
--- OUTSIDE RECORDS SUMMARY | ~2019-01-15 | XMS | Encounter Summary ---
Demographics + + + | Address | [address] | | | [place] [address] | + + + | Home Phone [...] Team Providers + +------+ + | Care Coil Winder Hand Name | Role | Phone | [...] + + | 06/18/ | Office | [facility] | Kevin Sandoval, | COPD (chronic | | 2013 | Visit | PULMONARY [address] | MD [address] | obstructive | | | | [place], | [place], [place] | pulmonary disease) | | | | [place] [address] | [address] | (Primary Dx); GARRY | | | | [phone] | | (obstructive sleep | | | [...] another prednisone taper. On conversations occurred in [facility] office. The patient was socially seen [...] [facility] [place]) 10/28/2012 Overview: Managed by [facility] along with hypothyroidism Osteoarthritis hay Past Surgical History Past Surgical History Procedure Date Hammertoe repair right sided Hiatal hernia repair Hiatal hernia Kirk and bso Ovarian cysts, not cancer Colonoscopy 03/2010 Colonoscopy 1995 [facility] Family History: Family History Problem Relation [...] d 99 months. Please send order to [facility] Disp: 1 each, Rfl: 0 Respiratory Therapy Supplies [facility], Change CPAP back to 11-14 cm H2O. All necessary supplies . No oxygen bleed in. Diagnosis Code(s)327.23. Length of Need: Lifetime. [facility]. This is not a [...] | | | | | | [place] [address] | | | | | | [phone] | | | | | | | [...] + | MISCELLANEOUS LAB | | | [phone] | + +---------+ + + | MISCELANIOUS LAB | | | [phone] | + +---------+ + + documented in [...]
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
--- OUTSIDE RECORDS SUMMARY | ~2019-01-15 | XMS | Encounter Summary ---
Demographics + + + | Address | [address] | | | [place] [address] | + + + | Home Phone [...] Providers + +------+ + | Care Car Salter Name | Role | Phone | + [...] [address] | | | | | [place], | [place], | | | | | [place] [address] | [place] [address] | | | | | [phone] | [phone] | | | | | | | [...] Sawyer | | | | | | [address] | | | | | | | | +--------+---------+ + + + | 11/24/ | Office | Cardiology | Flores, | | | 2019 | Visit | | SINDHU Erickson [address] | | | | | | [place], | | | | | | [place] [address] | | | | | | [phone] | | | | | | | [...]
--- OUTSIDE RECORDS SUMMARY | ~2019-01-15 | XMS | Encounter Summary ---
Demographics + + + | Address | [address] | | | [place] [address] | + + + | Home Phone [...] Providers + +------+ + | Care Aging Department Supervisor Name | Role | Phone | [...] | (Primary Dx) | | | | [place], | [address] | | | | | [place] [address] | | | | | | [phone] | | | +--------+ + + + [...] Sawyer | | | | | | [address] | | | | | | | | +--------+---------+ + + + | 11/24/ | Office | Cardiology | Flores, | | | 2019 | Visit | | SINDHU Erickson [address] | | | | | | [place], | | | | | | [place] [address] | | | | | | [phone] | | | | | | | [...]
--- OUTSIDE RECORDS SUMMARY | ~2019-01-15 | XMS | Encounter Summary ---
Demographics + + + | Address | [address] | | | [place] [address] | + + + | Home Phone [...] Team Providers + +------+ + | Care Tram Operator Name | Role | Phone | [...] + + | 04/18/ | Office | [facility] | Kevin Sandoval, | COPD (chronic | | 2015 | Visit | PULMONARY [address] | MD [address] | obstructive | | | | [place], | [place], [place] | pulmonary disease) | | | | [place] [address] | [address] | ([facility]) (Primary Dx); | | | | [phone] | | GARRY (obstructive | | | [...] Kevin Sandoval MD - 04/18/2014 9:15 AM [facility] Patient Education Prednisone Gastro-resistant tablet Prednisone [...] avoid any side effects. Talk to your shingle packer regarding the use of this medicine in [...] ta lk to your doctor or health child care leader. You may need to miss a dose [...] this medicine? Visit your doctor or health child care leader for regular checks on your progress. If [...] have surgery, tell your doctor or health child care leader that you hav e taken this medicine within the last twelve months. Ask your doctor or health child care leader about your diet. You may need to lower the amou nt of salt you eat. This medicine may affect blood sugar levels. If you have diabetes, check with your doctor o r health child care leader before you change your diet or the dose of your diabetic medicine . What side effects may I notice from receiving this medicine? Side effects that you should report to your doctor or health child care leader as soon as p ossible: allergic reactions [...] attention (report to your doctor or health child care leader if they continue or are bothersome): confusion, excitement, restlessness headache nausea, vomiting skin problems, acne, thin and shiny skin trouble sleeping weight gain This list may not describe all possible side effects. Call your doctor for medical advice a bout side effects. You may report side effects to FDA at 5-538-CAL-4719. Where should I keep my medicine? Keep [...] rom the original. Pulmonary Follow Up 04/18/2014 [facility] Rosario Malik is a 49 [...] our [facility]. They are currently on a [...] ([facility]) 10/28/2012 Overview: Managed by [facility] along with hypothyroidism Osteoarthritis Tachycardia [...] d 99 months. Please send order to [facility] Disp: 1 each, Rfl: 0, Respiratory Therapy Supplies [facility], Change CPAP back to 11-14 cm H2O. All necessary supplies . No oxygen bleed in. Diagnosis Code(s)327.23. Length of Need: Lifetime. Please send order t o [facility]. This is not a [...] at a pressure of 9 cm H2O. Webb lent compliance noted. 3. Hypoxemia patient wears [...] Sawyer | | | | | | [address] | | | | | | | | +--------+---------+ + + + | 11/24/ | Office | Cardiology | Flores, | | | 2019 | Visit | | SINDHU Erickson [address] | | | | | | [place], | | | | | | [place] [address] | | | | | | [phone] | | | | | | | [...]
--- OUTSIDE RECORDS SUMMARY | ~2019-01-15 | XMS | Encounter Summary ---
Demographics + + + | Address | [address] | | | [place] [address] | + + + | Home Phone [...] Providers + +------+ + | Care Engineering Illustrator Name | Role | Phone | + [...] + + | 02/14/ | Telephone | [facility] | Jesus Quiles | Shortness of Breath | | 2012 | | PULMONARY [address] | MD Carla [address] [facility] | | | | | [place], | [place], [place] | | | | | [place] [address] | [address] | | | | | [phone] | | | +--------+ + + + [...] Sawyer | | | | | | [address] | | | | | | | | +--------+---------+ + + + | 11/24/ | Office | Cardiology | lFores, | | | 2019 | Visit | | SINDHU Erickson [address] | | | | | | [place], | | | | | | [place] [address] | | | | | | [phone] | | | | | | | | +--------+---------+ + + + documented as of this encounter Visit Diagnoses + + | Diagnosis | + + | COPD (chronic obstructive pulmonary disease) (HCC) - Primary Chronic airway | | obstruction, not elsewhere classified | + + documented in this encounter"
--- OUTSIDE RECORDS SUMMARY | ~2019-01-15 | XMS | Encounter Summary ---
Demographics + + + | Address | [address] | | | [place] [address] | + + + | Home Phone [...] Providers + +------+ + | Care Remote Sensing Analyst Name | Role | Phone | [...] | 02/22/ | Off-Site | [facility] | [place], | Tachyarrhythmia | | 2013 | Visit | CARDIOLOGY [address] | SINDHU Erickson [address] | (Primary Dx); | | | | [place], | [place], | Palpitations; Other | | | | [place] [address] | [place] [address] | chest pain | | | | [phone] | [phone] | | | | | | | [...] other kind of bleeding. Fever over 101.0F. 0357-1983 The [employer]. [address] [place] [address], [place] [address]. All righ ts reserved. This information is [...] mg by mouth Daily. Respiratory Therapy Supplies [facility] Incentive spirometer. Please provide instructions in use. Dx: 848.8 MADELEINE: 3 months 1 each 99 Respiratory Therapy Supplies [facility] Please provide patient with necessary CPAP supplies ( she did not specify, okay to send order as appropriate) Diagnosis Code(s)327.23 . Length of Need 99 months. Please send order to [facility]. 1 each 0 Respiratory Therapy Supplies [facility] Change CPAP back to 11-14 cm H2O. All necessary suppl ies. No oxygen bleed in. Diagnosis Code(s)327.23. Length of Need: Lifetime. Please send orde r to [facility]. This is not a new [...] She is in a class II-III of [employer] ation functional class. There is [...] and ventricular function don e at the [facility]. LVEF 78%. C. Holter Monitor [...] this chart may have been created with [employer] voice recognition software. Occasi onal wrong-word or [...] | | | | | | [place] [address] | | | | | | [phone] | | | | | | | [...] Rosario Malik, (1965) MEDICAL RECORD NUMBER: | [facility] | | [id number] DATE OF PROCEDURE: 02/28/2014 SUPERVISOR OPEN HEARTH STOCKYARD: | - IMAGING | | Jared Mcdonough [...] Malik, (1965) OF | | PROCEDURE: 02/28/2014PRIMARY FLY FRAME TENDER: Jared Mcdonough MD PROCEDURES | | PERFORMED:Coronary [...] [address] | [place] | [phone] | | [facility] | | [address] | | | - IMAGING | | | | + + + + + documented in this encounter Visit Diagnoses + + | Diagnosis | + + | Tachyarrhythmia - Primary Tachycardia, unspecified | + + | Palpitations | + + | Other chest pain | + + documented in this encounter
--- OUTSIDE RECORDS SUMMARY | ~2019-01-15 | XMS | Encounter Summary ---
Demographics + + + | Address | [address] | | | [place] [address] | + + + | Home Phone [...] Team Providers + +------+ + | Care Cell Changer Name | Role | Phone | [...] [address] | | | | | [place], | [place], | | | | | [place] [address] | [place] [address] | | | | | [phone] | [phone] | | | | | | | [...] | | | | [place], [place] | | | | | | [address] | | | | | | | | +--------+---------+ + + + | 11/24/ | Office | Cardiology | Flores, | | | 2019 | Visit | | SINDHU Erickson [address] | | | | | | [place], | | | | | | [place] [address] | | | | | | [phone] | | | | | | | [...]
--- OUTSIDE RECORDS SUMMARY | ~2019-01-15 | XMS | Encounter Summary ---
Demographics + + + | Address | [address] | | | [place] [address] | + + + | Home Phone [...] Team Providers + +------+ + | Care Personnel Director Name | Role | Phone | [...] Fall, | | | | [address] [place] | [address] [place] | initial encounter; | | 01/10/ | | [place] [address] | [place] [address] | Generalized | | 2018 | | [phone] | [phone] | weakness; Paroxysmal | | | | | | atrial tachycardia | | | | | Nohemi Gregory MD | ([facility]); Chronic | | | | | [address] | obstructive | | | | | [place], [place] | pulmonary disease, | | | | | [id number] | unspecified COPD | | | | | | type ([facility]); | | | | | | [...] Color, UA Straw Clarity, UA Clear Specific Kane 1.028 PH UA 6.0 Glucose, UA Negative [...] mouth Daily. aka: DELTASONE Respiratory Therapy Supplies [facility] Change CPAP back to 11-14 cm H2O. All necessary supplies. No oxygen bleed in. Diagnosis Co de(s)327.23. Length of Need: Lifetime. Please send order to [facility]. This i s not a new order, just a change in settings. Respiratory Therapy Supplies [facility] Please provide patient with necessary CPAP supplies (she did not specify, okay to send ord er as appropriate) Diagnosis Code(s)327.23 . Length of Need 99 months. Please send order to [facility]. roflumilast 500 mcg tablet Take 1 [...] Malik : 1965: Age: 53 y.o. MedRec: [id number] PCP: Yong Cherry DO Admission date: 2018 [...] Anterolateral/lateral leads Confirmed by RAFA WELLS MD ([id number]) on 01/09/2018 6:50:03 AM POC Glucose Collection [...] PH UA 6.0 5.0 - 8.0 Specific Kane 1.028 1.001 - 1.030 PROTEIN UA Negative [...] nodularity. No mediastinal lymphade nopathy, within the hwjfv-wg-futz. Stable 7 mm nodule in the right [...] [place]yer | | | | | | [address] | | | | | | | | +--------+---------+ + + + | 11/24/ | Office | Cardiology | Flores, | | | 2019 | Visit | | SINDHU Erickson [address] | | | | | | [place], | | | | | | [place] [address] | | | | | | [phone] | | | | | | | [...] W?MRN: | | | | | | [id number] | | | [id number] | | | his | | | [...] | | | [place] | | | [facility], | | | [place] - | [...] | | | | | | n [place] | | | | | + +---------+ [...] [address] | [place] | [phone] | | [facility] | | [address] | | | - LABORATORY | | [...] + | [address] | [address] | [place] | [phone] | | [facility] | | [address] | | | - LABORATORY | | [...] [address] | [place] | [phone] | | [facility] | | [address] | | | - LABORATORY | | [...] + | [facility] | [address] | [place] | [phone] | | [facility] | | [address] | | | - LABORATORY | | [...] [address] | [place] | [phone] | | [facility] | | [address] | | | - LABORATORY | | [...] [address] | [place] | [phone] | | [facility] | | [address] | | | - LABORATORY | | [...] [address] | [place] | [phone] | | [facility] | | [address] | | | - LABORATORY | | [...] + + | Performed at: 01 - [address] [place] [address], | REFERENCE LAB | | [facility] [place] [id number] Pulping Machine Operator: Naomie Evans, Phone: | ARACELIS - MARCELLE | | [phone] | | + + + + + + + + | Performing | Address | City/State/Zipcode | Phone Number | | Organization | | | | + + + + + | REFERENCE LAB | [address] | [place] [address] | [phone] | | [facility] | Drive [...] | | | | | | [employer] | | | | | [...] [address] | [place] | [phone] | | [facility] | | [address] | | | - LABORATORY | | [...] [address] | [place] | [phone] | | [facility] | | [address] | | | - LABORATORY | | [...] [address] | [place] | [phone] | | [facility] | | [address] | | | - LABORATORY | | [...] (L) | 7 - 18 mg/dL | [facility] | | | | | | [facility] | | | | | | MEDICAL | | | | | | CENTER - | | | | | | LABORATORY | | + + + + + + | Creatinine | 0.61 | 0.60 - 1.30 | [facility] | | | | | mg/dL | [facility] | | | | | | MEDICAL | | | | | | CENTER - | | | | | | LABORATORY | | + + + + + + | eGFR if not | >60Comment: GLOMERULAR | >=60 | [facility] | | | | FILTRATION | mL/min/1.73m2 | [facility] | | | [place] | RATE,ESTIMATED | | MEDICAL | | | | mL/min/1.31g0Hcye than | | CENTER - | | [...] [address] | [place] | [phone] | | [facility] | | [address] | | | - LABORATORY | | [...] + | [address] | [address] | [place] | [phone] | | [facility] | | [address] | | | - LABORATORY | | [...] | | | | | | [employer] | | | | | [...] + | [facility] | [address] | [place] | [phone] | | [facility] | | [address] | | | - LABORATORY | | [...] [address] | [place] | [phone] | | [facility] | | [address] | | | - LABORATORY | | [...] [address] | [place] | [phone] | | [facility] | | [address] | | | - LABORATORY | | [...] | | [facility] | | | [facility] | | | - LABORATORY | + + + + + + + + | Performing | Address | City/State/Zipcode | Phone Number | | Organization | | | | + + + + + | [facility] | [address] | [place] | [phone] | | [facility] | | [address] | | | - LABORATORY | | [...] + | [facility] | [address] | [place] | [phone] | | [facility] | | [address] | | | - LABORATORY | | [...] | | | | | | [employer] | | | | | [...] + | [facility] | [address] | [place] | [phone] | | [facility] | | [address] | | | - LABORATORY | | [...] ST. | [address] | [place] | [phone] | | [facility] | | [address] | | | - LABORATORY | | [...] ST. | [address] | [place] | [phone] | | [facility] | | [address] | | | - LABORATORY | | [...] [address] | [place] | [phone] | | [facility] | | [address] | | | - LABORATORY | | [...] [address] | [place] | [phone] | | [facility] | | [address] | | | - LABORATORY | | [...] [address] | [place] | [phone] | | [facility] | | [address] | | | - LABORATORY | | [...] - 1.030 | [facility] | | | [place] | | | [facility] | | [...] ST. | [address] | [place], [place] | [phone] | | [facility] | | [address] | | | - LABORATORY | | [...] mediastinal | | | lymphadenopathy, within the xvxha-kb-jpls. Stable 7 mm nodule in | | [...] vocal cord nodularity. Nomediastinal lymphadenopathy, within the nxopv-ct-elhu. Stable | | 7 mm nodule inthe right apex. Bullous changes in the left apex. Small blebs in the | | rightapex. No suspicious lytic or blastic bone lesions. Evidence of a healedsternal | | fracture. There appears to be fusion of the articular pillars at thelevel | | [id number] -No CT evidence for an acute intracranial [...] nodularity. No | |mediastinal lymphadenopathy, within the ocxfu-kv-thpm. Stable 7 mm nodule in | |the [...] [address] | [place] | [phone] | | [facility] | | [address] | | | - LABORATORY | | [...] [address] | [place] | [phone] | | [facility] | | [address] | | | - LABORATORY | | [...] + | [facility] | [address] | [place] | [phone] | | [facility] | | [address] | | | - LABORATORY | | [...] [address] | [place] | [phone] | | [facility] | | [address] | | | - LABORATORY | | [...] | | | | | | [employer] | | | | | [...] ST. | [address] | [place], [place] | [phone] | | [facility] | | [address] | | | - LABORATORY | | [...] | | | FILTRATION | mL/min/1.73m2 | [facility] | | | [place] | RATE,ESTIMATED | | MEDICAL | | | | mL/min/1.79u4Jymm than | | CENTER - | | [...] | | | | | mg/dL | [facility] | | | | [...] [address] | [place] | [phone] | | [facility] | | [address] | | | - LABORATORY | | [...] [address] | [place] | [phone] | | [facility] | | [address] | | | - LABORATORY | | [...] + | [address] | [address] | [place], [place] | [phone] | | [facility] | | [address] | | | - LABORATORY | | [...] | | | | RAFA WELLS MD ([id number]) | | | | | | on [...] | | | | | dose on [facility] 01/08/18 at 1500 | | | | [...] Low | | | Blood Sugar, Starting [facility] | | | 01/08/18 at 1444 | | + +---+ | | | + +---+ + +-------+ +---------+---+---+ | digoxin (LANOXIN) tablet 125 | Given | 01/11/20 | 125 mcg | | | | mcg 125 mcg, Oral, DAILY, First | | 18 8:19 | | | | | dose on [facility] 01/08/18 at 1450 | | AM PST [...] | | | | | Anxiety, Starting [facility] 01/08/18 at | | | | | [...] | | | | CT Scan, Starting [facility] 01/08/18 | | | | | | [...] | | | | | dose on [facility] 01/08/18 at 1450 | | AM PST [...] | | | | First dose on [facility] 01/08/18 at | | PM PST | [...] | | | | Joe [facility] 01/09/2018 15:38, , , | | [...] | | | | | Migraine, Starting [facility] 01/08/18 | | AM PST | | [...]
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
--- OUTSIDE RECORDS SUMMARY | ~2019-01-15 | XMS | Encounter Summary ---
Demographics + + + | Address | [address] | | | [place] [address] | + + + | Home Phone [...] + +------+ + | Care Director Of Promotions Name | Role | Phone | + [...] + + | 04/13/ | Emergency | [facility] | Alverto Tyler, | Abdominal pain, | | 2016 | | [facility] CTR [facility] | [address] | acute, epigastric | | | | CENTER [address] | [place] | (Primary Dx) | | | | [place] | [address] | | | | | [address] | | | | | | [phone] | Ozzy Louis | | | | | | MD Julio [address] | | | | | | [place] | | | | | | [address] | | | | | | [phone] | | | | | | | | | | | | Nestor Martinez MD | | | | | | [address] | | | | | | [place] | | | | | | [id number] | | | | | | | [...] | | | send order to [facility] | | | | | [...] [place] | | | | | | [address] | | | | | | | | +--------+---------+ + + + | 11/24/ | Office | Cardiology | [place], | | | 2020 | Visit | | SINDHU Erickson [address] | | | | | | [place], | | | | | | [place] [address] | | | | | | [phone] | | | | | | | [...] + | [address] | [address] | [place], [place] | [phone] | | [facility] | | [address] | | | - LABORATORY | | [...] | | | FILTRATION | mL/min/1.73m2 | [facility] | | | NIUEAN | RATE,ESTIMATED | | MEDICAL | | | | mL/min/1.15k7Zkhe than | | CENTER - | | [...] | | | | | mg/dL | [facility] | | | | | | [...] ST. | [address] | [place], [place] | [phone] | | [facility] | | [address] | | | - LABORATORY | | [...]
--- OUTSIDE RECORDS SUMMARY | ~2019-01-15 | XMS | Encounter Summary ---
Demographics + + + | Address | [address] | | | [place] [address] | + + + | Home Phone [...] Team Providers + +------+ + | Care Paying Teller Name | Role | Phone | + [...] [address] | | | | | [place], | [place] | | | | | [place] [address] | [address] | | | | | [phone] | | | +--------+--------+ + + + [...] [place] | | | | | | [address] | | | | | | | | +--------+---------+ + + + | 11/24/ | Office | Cardiology | [place], | | | 2019 | Visit | | SINDHU Erickson [address] | | | | | | [place], | | | | | | [place] [address] | | | | | | [phone] | | | | | | | | +--------+---------+ + + + documented as of this encounter Visit Diagnoses Not on filedocumented in this encounter"
--- OUTSIDE RECORDS SUMMARY | ~2019-01-15 | XMS | Encounter Summary ---
Demographics + + + | Address | [address] | | | [place] [address] | + + + | Home Phone [...] Team Providers + +------+ + | Care Seo Expert Name | Role | Phone | [...] [address] | | | | | [place], | [place] | | | | | [place] [address] | [address] | | | | | [phone] | | | +--------+--------+ + + + [...] [place] | | | | | | [address] | | | | | | | | +--------+---------+ + + + | 11/24/ | Office | Cardiology | [place], | | | 2019 | Visit | | SINDHU Erickson [address] | | | | | | [place], | | | | | | [place] [address] | | | | | | [phone] | | | | | | | | +--------+---------+ + + + documented as of this encounter Visit Diagnoses Not on filedocumented in this encounter"
--- OUTSIDE RECORDS SUMMARY | ~2019-01-15 | XMS | Encounter Summary ---
Demographics + + + | Address | [address] | | | [place] [address] | + + + | Home Phone [...] Team Providers + +------+ + | Care Hydrogeologist Name | Role | Phone | + +------+ + PCP | Unavailable | + +------+ + Encounter Details +--------+ + + + + | Date | Type | Department | Care Team | Description | +--------+ + + + + | 10/18/ | [facility] | [facility] | | | | 2008 - | Encounter | MED CTR OP REHAB | | | | | | [address] [place] | | | | 10/24/ | | [place] [address] | | | | 2008 | | [phone] | | | +--------+ + + + [...] [place] | | | | | | [address] | | | | | | | | +--------+---------+ + + + | 11/24/ | Office | Cardiology | [place], | | | 2020 | Visit | | SINDHU Erickson [address] | | | | | | [place], | | | | | | [place] [address] | | | | | | [phone] | | | | | | | | +--------+---------+ + + + documented as of this encounter Visit Diagnoses Not on filedocumented in this encounter"
--- OUTSIDE RECORDS SUMMARY | ~2019-01-15 | XMS | Encounter Summary ---
Demographics + + + | Address | [address] | | | [place] [address] | + + + | Home Phone [...] Team Providers + +------+ + | Care Petroleum Engineering Professor Name | Role | Phone | [...] + + | 07/14/ | Office | [facility] | lEda Miranda | Asthma exacerbation | | 2012 | Visit | [facility] [address] | MD Hafsa [address] | (Primary Dx) | | | | [facility] | [place] | | | | | [place] | [place] [address] | | | | | [address] | [phone] | | | | | [phone] | | | +--------+---------+ + + + [...] dyspnea. Lungs clear. Assessment: 1. Asthma exacerbation VA INHAL RX, AIRWAY OBST/DX SPUTUM INDUCT, albuterol [...] [place] | | | | | | [address] | | | | | | | | +--------+---------+ + + + | 11/24/ | Office | Cardiology | [place], | | | 2019 | Visit | | SINDHU Erickson [address] | | | | | | [place], | | | | | | [place] [address] | | | | | | [phone] | | | | | | | [...]
--- OUTSIDE RECORDS SUMMARY | ~2019-01-15 | XMS | Encounter Summary ---
Demographics + + + | Address | [address] | | | [place] [address] | + + + | Home Phone [...] Providers + +------+ + | Care Flight Crew Scheduler Name | Role | Phone | [...] [place], | | | | | | [facility] | Shashi Witt MD | | | | | Headache(784 | [address] | Need | | | | | .0) | [place] | updated | | | | | | [place], | address | | | | | | [place] | | | | | | | [address] | | | | | | | Phone: | | | | | | | [phone] | | | | | | | Fax: | | | | | | | [phone] | | +--------+--------+ + + + + Encounter Details +--------+---------+ + + + | Date | Type | Department | Care Team | Description | +--------+---------+ + + + | 10/19/ | Office | [facility] | Shashi Segovia | Migraines (Primary | | 2013 | Visit | NEUROLOGY ADRIANA | MD Miryam Need updated | Dx); Pituitary mass | | | | [address] [facility], | address | ([facility]) | | | | [address] [place] | | | | | | [place] [address] | | | | | | [phone] | | | +--------+---------+ + + + [...] the face Difficulty with speech or vision [address] [place] [address]. All rights reserve d. This information is not intended as a substitute for professional medical care. Always fo llow your healthcare professional's instructions. documented in this encounter Progress Notes Shashi Segovia MD - 10/19/2013 8:09 AM PDTFormatting of this note might be differe nt from the original. Shashi Segovia MD [address] [place] [address], [address] [place] [id number] Neurology Outpatient New Patient Note Chief Complaint: [...] She has had extensive work up at [facility] in the past, and returns [...] [facility]) 10/28/2012 Overview: Managed by [facility] along with hypothyroidism Osteoarthritis Tachycardia Asthma Emphysema ([facility]) Migraine Past Surgical History: Past Surgical History Procedure Date Hammer toe surgery right sided Hiatal hernia repair Hiatal hernia Kirk and bso Ovarian cysts, not cancer Colonoscopy 03/2010 Colonoscopy 1995 [facility] Knee surgery right Wrist surgery [...] order as appropriate) Diagnosis Code(s)327.23 . [facility] of Need 99 months. Please send order to [facility]. Respiratory Therapy Supplies MISC (Taking) Change CPAP back to 11-14 cm H2O. All necessar y supplies. No oxygen bleed in. Diagnosis Code(s)327.23. Length of Need: Lifetime. Please se nd order to [facility]. This is not a new order, just [...] 1 Years of Education: 13 Occupational History [employer] Social History Main Topics Smoking status: [...] (145 lb) | BMI 26.51 kg /m2 [place] Sleepiness Scale: 13 General: cachetic HEENT: normal [...] prior records of labs, notes, images from [facility] - Will check baseline pituitary [...] [place] | | | | | | [id number] | | | | | | | | +--------+---------+ + + + | 11/24/ | Office | Cardiology | [place], | | | 2019 | Visit | | SINDHU Erickson [address] | | | | | | [place], | | | | | | [place] [address] | | | | | | [phone] | | | | | | | [...] [place] | | | | | | [address] | | | | + + + [...] | Cortisol, | 8.77Comment: Reference | ug/g AIRLINE TRANSPORT PILOT | REFERENCE | | | Urine, | [...] | | | | than 32 ug/g customer resolution specialist | | | | + + + [...] Test | | | | | | Directory([employer]).T | | | | | | est developed and | | | | | | characteristics | | | | | | determined by [facility] | | | | | | Laboratories.See | | | | | | Compliance Statement B: | | | | | | [employer]/CSTesting | | | | | | Performed: [facility], [address] | | | | | | [address], [place] | | | | | | [id number] Performed: | | | | | | [facility], [address] [facility], | | | | | | [place] [address] | | | | + + + + + + + + | Specimen | + + | Urine specimen | | (specimen) | + + + + + + + | Performing | Address | City/State/Zipcode | Phone Number | | Organization | | | | + + + + + | [facility] | [address] | [place] [address] | [phone] | + + + + + Adrenocorticotropic [...] [place] | | | | | | [address] | | | | + + + [...] [address] | [place] [address] | [phone] | + + + + + Insulin-Like [...] | | | | | [place] [address] | | | | + + + + + + + + | Specimen | + + | Blood specimen | | (specimen) | + + + + + + + | Performing | Address | City/State/Zipcode | Phone Number | | Organization | | | | + + + + + | [facility] | [address] | [place] [address] | [phone] | + + + + + Prolactin [...] [place] | | | | | | [address] | | | | + + + [...] [address] | [place] [address] | [phone] | + + + + + documented [...]
--- OUTSIDE RECORDS SUMMARY | ~2019-01-15 | XMS | Encounter Summary ---
Demographics + + + | Address | [address] | | | [place] [address] | + + + | Home Phone [...] Providers + +------+ + | Care Supervisor Operations Name | Role | Phone | + [...] | Off-Site | [facility] [place] | [place], | Tachycardia (Primary | | 2013 | Visit | CARDIOLOGY [address] | SINDHU Erickson [address] | Dx); Palpitations; | | | | [place], | [place], | Tachyarrhythmia; | | | | [place] [address] | [place] [address] | Other chest pain | | | | [phone] | [phone] | | | | | | | [...] she was prescribed colchicine. Patient did not nut picker prescription and has not started it. [...] 15mg/day x 7 days Respiratory Therapy Supplies [facility] [...] HOSPITAL. 1 each 0 Respiratory Therapy Supplies [facility] Change CPAP back to 11-14 cm H2O. All necessary suppl ies. No oxygen bleed in. Diagnosis Code(s)327.23. Length of Need: Lifetime. Please send orde r to [facility]. This is not a new [...] HGBEX 14.5 05/10/2013 [facility] for emergency department visit o n 01/20/2014 [...] was seen at the ED of [facility] 3 weeks ago and again [...] She is in a class II of [place] [employer] functional class. There is no [...] and ventricular function don e at the [facility]. LVEF 78%. C. Holter Monitor [...] this chart may have been created with [employer] voice recognition software. Occasi onal wrong-word or [...] | | | | | | [place] [address] | | | | | | [phone] | | | | | | | [...] 1965 Medical Record Number: | | | [id number] Date: 01/27/2014 Time: 10:20 EKG Interpretation | [...]
--- OUTSIDE RECORDS SUMMARY | ~2019-01-15 | XMS | Encounter Summary ---
Demographics + + + | Address | [address] | | | [place] [address] | + + + | Home Phone [...] Providers + +------+ + | Care Fur Trimming Machine Operator Name | Role | Phone [...] + + | 12/15/ | Emergency | [facility] | Heriberto | Lower abdominal pain | | 2018 | | MED CTR EMERGENCY | Ozzy Kim MD [address] | (Primary Dx) | | | | [place] [address] | [address] [facility] | | | | | [place] | [place] [address] | | | | | [address] | [phone] | | | | | [phone] | | | +--------+ + + + [...] 12/15/2017Home and rest Drink plenty of fluids Noonan for pain control Return here or see [...] | | | | | order to [facility]. | | | | | [...] [place] | | | | | | [address] | | | | | | | | +--------+---------+ + + + | 11/24/ | Office | Cardiology | [place] | | | 2020 | Visit | | SINDHU Erickson [address] | | | | | | [place], | | | | | | [place] [address] | | | | | | [phone] | | | | | | | [...] | | | origin | | | al.IVC | | | E?NOTI | | | FICATI | | | ON?10/ | | | 22/201 | | | 8 | | | 06:55? | | | HODGEN | | | , | | | GRETCH | | | EN | | | W?MRN: | | | | | | [id number] | | | [id number] | | | his | | | [...] | | | rics | | | [place] | | | d | | | [...] | | | rics | | | [place] | | | d 6 0 | [...] | | | [place] | | | HEATEHR 4 | | | 20 | | [...] | | | FILTRATION | mL/min/1.73m2 | [facility] | | | [facility] | RATE,ESTIMATED | | MEDICAL | | | | mL/min/1.91d2Mlry than | | CENTER - | | [...] PROVIDENCE | | | | | | [facility] | | | | | | [...] + | [address] | [address] | [place] | [phone] | | [facility] | | [address] | | | - LABORATORY | | [...] ST. | [address] | [place], [place] | [phone] | | [facility] | | [address] | | | - LABORATORY | | [...] [address] | [place] | [phone] | | [facility] | | [address] | | | - LABORATORY | | [...] 1.001 - 1.030 | | | | [place], | | | | | | UA, [...]
--- OUTSIDE RECORDS SUMMARY | ~2019-01-15 | XMS | Encounter Summary ---
Demographics + + + | Address | [address] | | | [place] [address] | + + + | Home Phone [...] Team Providers + +------+ + | Care Buyer Broker Name | Role | Phone | [...] | | | [place] | [place] | | | | | [address] | [address] | | | | | [phone] | | | +--------+ + + + [...] for evaluation. [facility] positive for [facility]rites. documented [...] | | | | | [place] [address] | | | | | | [phone] | | | | | | | [...] [address] | [place] | [phone] | | [facility] | | [address] | | | - LABORATORY | | | | + + + + + POCT Urinalysis Dipstick Automated (07/28/2017 2:51 PM PDT) + + + + + + | Component | Value | Ref Range | Performed | Pathologist | | | | | At | Signature | + + + + + + | Color, UA, | [place] (A) | Yellow, Light | | | [...] 1.001 - 1.030 | | | | [place], | | | | | | UA, [...]
--- OUTSIDE RECORDS SUMMARY | ~2019-01-15 | XMS | Encounter Summary ---
Demographics + + + | Address | [address] | | | [place] [address] | + + + | Home Phone [...] Team Providers + +------+ + | Care Utility Pipe Layer Name | Role | Phone | [...] | | Dx) | | | | [address] | | | | | | [phone] | | | +--------+ + + + [...] have not thoroughly proofread this note, and marine engineer cpvec erro rs may occur. Nancy Simms C MA - 11/01/2015 8:22 AM PDT Pt. Presents for a DMSO #2 for Interstitial Cystitis. Administrations This Visit dimethyl sulfoxide (RIMSO-50) 50% solution 50 mL Admin Date Action Dose Route Administered By 11/01/2015 Given 50 mL Bladder Instillation Nancy Dalal CMA heparin 10,000 units/mL injection 10,000 Units Admin Date Action Dose Route Administered By 11/01/2015 Given 19122 Units Subcutaneous Nancy Dalal CMA lidocaine 2% [...] | | | | | | [place] [address] | | | | | | [phone] | | | | | | | [...] 1.001 - 1.030 | | | | [place], | | | | | | UA, [...]
--- OUTSIDE RECORDS SUMMARY | ~2019-01-15 | XMS | Encounter Summary ---
Demographics + + + | Address | [address] | | | [place] [address] | + + + | Home Phone [...] Team Providers + +------+ + | Care Tester Compressed Gases Name | Role | Phone | + [...] [address] | | | | | [place], | [place] | | | | | [place] [address] | [address] | | | | | [phone] | | | +--------+--------+ + + + [...] [place] | | | | | | [address] | | | | | | | | +--------+---------+ + + + | 11/24/ | Office | Cardiology | [place], | | | 2019 | Visit | | SINDHU Erickson [address] | | | | | | [place], | | | | | | [place] [address] | | | | | | [phone] | | | | | | | | +--------+---------+ + + + documented as of this encounter Visit Diagnoses Not on filedocumented in this encounter"
--- OUTSIDE RECORDS SUMMARY | ~2019-01-15 | XMS | Encounter Summary ---
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 pressure is: 8-12 cm 95%: 11.9 [...] weeks, sooner prn. Fifteen minutes were spent lhte-za-lfas, wit h the majority of time spent [...] [place] | | | | | | [address] | | | | | | | | +--------+---------+ + + + | 11/24/ | Office | Cardiology | [place], | | | 2019 | Visit | | SINDHU Erickson [address] | | | | | | [place], | | | | | | [place] [address] | | | | | | [phone] | | | | | | | | +--------+---------+ + + + documented as of this encounter Visit Diagnoses + + | Diagnosis | + + | Organic insomnia, unspecified - Primary | + + | GARRY on CPAP Obstructive sleep apnea (adult) (pediatric) | + + documented in this encounter"
--- OUTSIDE RECORDS SUMMARY | ~2019-01-15 | XMS | Encounter Summary ---
Demographics + + + | Address | [address] | | | [place] [address] | + + + | Home Phone [...] Team Providers + +------+ + | Care Cognos Bi Administrator Name | Role | Phone | [...] | Off-Site | [facility] [place] | [place], | Tachycardia (Primary | | 2013 | Visit | CARDIOLOGY [address] | SINDHU Erickson [address] | Dx); Palpitations; | | | | [place], | [place], | Tachyarrhythmia; | | | | [place] [address] | [place] [address] | Other chest pain | | | | [phone] | [phone] | | | | | | | [...] she was prescribed colchicine. Patient did not picker packer prescription and has not started it. Since [...] 15mg/day x 7 days Respiratory Therapy Supplies [facility] Incentive spirometer. Please provide instructions in use. Dx: 848.8 MADELEINE: 3 months 1 each 99 Respiratory Therapy Supplies [facility] Please provide patient with necessary CPAP supplies ( she did not specify, okay to send order as appropriate) Diagnosis Code(s)327.23 . Length of Need 99 months. Please send order to [facility]. 1 each 0 Respiratory Therapy Supplies [facility] Change CPAP back to 11-14 cm H2O. All necessary suppl ies. No oxygen bleed in. Diagnosis Code(s)327.23. Length of Need: Lifetime. Please send orde r to [facility]. This is not a new [...] HGBEX 14.5 05/10/2013 I reviewed records from [facility] for emergency department visit o n [...] She was seen at the ED of [facility] 3 weeks ago and again 1 [...] She is in a class II of [place] [employer] functional class. There is no [...] and ventricular function don e at the [facility]. LVEF 78%. C. Holter Monitor 08/16/13 [...] this chart may have been created with [employer] voice recognition software. Occasi onal wrong-word [...] | | | | | | [place] [address] | | | | | | [phone] | | | | | | | [...] 1965 Medical Record Number: | | | [id number] Date: 01/27/2014 Time: 10:20 EKG Interpretation | [...]
--- OUTSIDE RECORDS SUMMARY | ~2019-01-15 | XMS | Encounter Summary ---
Demographics + + + | Address | [address] | | | [place] [address] | + + + | Home Phone [...] Providers + +------+ + | Care Program Coordinator For Residence Life Name | Role | Phone | + [...] | RN | | | | | [place], | | | | | | [place] [address] | | | | | | [phone] | | | +--------+ + + + [...] [place] | | | | | | [address] | | | | | | | | +--------+---------+ + + + | 11/24/ | Office | Cardiology | [place], | | | 2019 | Visit | | SINDHU Erickson [address] | | | | | | [place], | | | | | | [place] [address] | | | | | | [phone] | | | | | | | | +--------+---------+ + + + documented as of this encounter Visit Diagnoses Not on filedocumented in this encounter"
--- OUTSIDE RECORDS SUMMARY | ~2019-01-15 | XMS | Encounter Summary ---
Demographics + + + | Address | [address] | | | [place] [address] | + + + | Home Phone [...] Providers + +------+ + | Care Exercise Equipment Repair Technician Name | Role | Phone [...] Headache | Shashi Witt, | [address] | | | | | Pituitary | MD Need | [place], | | | | | tumor | updated | [place] | | | | | Procedures | address | [address] | | | | | CT Head w wo | | Phone: | | | | | Contrast | | [phone] | | | | | | | Fax: | | | | | | | [phone] | +--------+--------+ + + + + Reason for Visit +--------+ + | Reason | Comments | +--------+ + | Other | Schedule MRI | +--------+ + Encounter Details +--------+ + + + + | Date | Type | Department | Care Team | Description | +--------+ + + + + | 11/24/ | Telephone | [facility] | Aneta Rain | Other (Schedule MRI) | | 2013 | | NEUROLOGY ADRIANA | N, RN | | | | | [address], | | | | | | [address] [place] | | | | | | [place] [address] | | | | | | [phone] | | | +--------+ + + + [...] | | | | [place] | | | | | | [address] | | | | | | | | +--------+---------+ + + + | 11/24/ | Office | Cardiology | Flores, | | | 2019 | Visit | | SINDHU Erickson [address] | | | | | | [place], | | | | | | [place] [address] | | | | | | [phone] | | | | | | | [...] + | MISCELLANEOUS LAB | | | [phone] | + +---------+ + + | MISCELANIOUS LAB | | | [phone] | + +---------+ + + documented in this encounter Visit Diagnoses + + | Diagnosis | + + | Headache - Primary | + + | 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
--- OUTSIDE RECORDS SUMMARY | ~2019-01-15 | XMS | Encounter Summary ---
Demographics + + + | Address | [address] | | | [place] [address] | + + + | Home Phone [...] Team Providers + +------+ + | Care Risk Management Intern Name | Role | Phone | [...] + + | 07/24/ | Office | [facility] | Flores, | Palpitations | | 2018 | Visit | CARDIOLOGY [address] | SINDHU Erickson [address] | (Primary Dx); | | | | [place], | [place], | Paroxysmal atrial | | | | [place] [address] | [place] [address] | tachycardia (HCC); | | | | [phone] | [phone] | Other migraine | | | | [...] takes this da rigoberto Respiratory Therapy Supplies [place] Please provide patient with necessary CPAP supplies ( she did not specify, okay to send order as appropriate) Diagnosis Code(s)327.23 . Length of Need 99 months. Please send order to [facility]. 1 each 0 Respiratory Therapy Supplies [place] Change CPAP back to 11-14 cm H2O. [...] has lengthened Confirmed by CLAY MCDONOUGH MD ([id number]) on 05/06/2017 4:53:06 PM LAB RESULTS reviewed during visit today primarily from [facility]: LIPID Lab Results Component Value [...] 417 (A) 03/18/2017 I reviewed records from [facility] for office visit on 04/2017 whic h [...] and v entricular function done at the [facility]. LVEF 78%. C. Holter Monitor 08/16/13 Underlying normal sinus rhythm with rate 56-165 beats per minute, average rate 91, very rare premature ventricular contractions, Naomei y are premature atrial contractions, and 2 [...] She is in class II of the [place] [employer] functional class. There are no [...] She was seen at the ED of [facility] 3 weeks ago and [...] is in a class I-II o f [place] [employer] functional class. There is no [...] this chart may have been created with [employer] voice recognition software. Occasi onal wrong-word or [...] [place] | | | | | | [address] | | | | | | | | +--------+---------+ + + + | 11/24/ | Office | Cardiology | Flores, | | | 2019 | Visit | | SINDHU Erickson [address] | | | | | | [place] | | | | | | [place] [address] | | | | | | [phone] | | | | | | | [...]
--- OUTSIDE RECORDS SUMMARY | ~2019-01-15 | XMS | Encounter Summary ---
Demographics + + + | Address | [address] | | | [place] [address] | + + + | Home Phone [...] Team Providers + +------+ + | Care Crane Engineer Name | Role | Phone | [...] | | | | | | [place] [address] | | | | | | [phone] | | | +--------+ + + + [...] [place] | | | | | | [address] | | | | | | | | +--------+---------+ + + + | 11/24/ | Office | Cardiology | Flores, | | | 2019 | Visit | | SINDHU Erickson [address] | | | | | | [place], | | | | | | [place] [address] | | | | | | [phone] | | | | | | | | +--------+---------+ + + + documented as of this encounter Visit Diagnoses Not on filedocumented in this encounter"
--- OUTSIDE RECORDS SUMMARY | ~2019-01-15 | XMS | Encounter Summary ---
Demographics + + + | Address | [address] | | | [place] [address] | + + + | Home Phone [...] Providers + +------+ + | Care Registered Radiation Therapist Name | Role | Phone | [...] + + | 08/17/ | Office | [facility] | Jared Mcdonough, | Hospital discharge | | 2015 | Visit | CARDIOLOGY [address] | [address] [facility] | follow-up (Primary | | | | [place], | [place], | Dx); Tachycardia; | | | | [place] [address] | [place] [address] | Syncope, unspecified | | | | [phone] | [phone] | syncope type | | | | [...] time, patient was seen and admitted to [facility] on because she passed out. Workups [...] be assessed by crisis team in the [facility] room, patient flat out refused to [...] day. 15 tablet 3 Respiratory Therapy Supplies [facility] Please provide patient with necessary CPAP supplies ( she did not specify, okay to send order as appropriate) Diagnosis Code(s)327.23 . Length of Need 99 months. Please send order to [facility]. 1 each 0 [facility] Change [facility]AP back to 11-14 cm [...] ventricular function don e at the [facility]. LVEF 78%. C. Holter Monitor 08/16/13 [...] E. Patient was seen and admitted to [facility] on 07/10/13 because she pa ssed [...] She is in a class I of [place] [employer] functional class. There is no [...] months. Electronically signed by: Jared Mcdonough MD [facility] 08/17/2014 Portions of this chart may have been created with [employer] voice recognition software. Occasi onal wrong-word or [...] [place] | | | | | | [address] | | | | | | | | +--------+---------+ + + + | 11/24/ | Office | Cardiology | Flores, | | | 2019 | Visit | | SINDHU Erickson [address] | | | | | | [place], | | | | | | [place] [address] | | | | | | [phone] | | | | | | | [...]
--- OUTSIDE RECORDS SUMMARY | ~2019-01-15 | XMS | Encounter Summary ---
Demographics + + + | Address | [address] | | | [place] [address] | + + + | Home Phone [...] Providers + +------+ + | Care Shop Director Name | Role | Phone | [...] [address] | | | | | [place] | THOM [facility] | | | | | [address] | [place] [address] | | | | | [phone] | [phone] | | | | | | | [...] [place] | | | | | | [address] | | | | | | | | +--------+---------+ + + + | 11/24/ | Office | Cardiology | Flores, | | | 2019 | Visit | | SINDHU Erickson [address] | | | | | | [place], | | | | | | [place] [address] | | | | | | [phone] | | | | | | | | +--------+---------+ + + + documented as of this encounter Visit Diagnoses Not on filedocumented in this encounter"
--- OUTSIDE RECORDS SUMMARY | ~2019-01-15 | XMS | Encounter Summary ---
Demographics + + + | Address | [address] | | | [place] [address] | + + + | Home Phone [...] Team Providers + +------+ + | Care X Ray Tech Name | Role | Phone | + +------+ + | Juan Cherry DO | PCP | | + +------+ + Reason for Visit +--------+ + | Reason | Comments | +--------+ + | Other | prescription clarification | +--------+ + Encounter Details +--------+ + + + + | Date | Type | Department | Care Team | Description | +--------+ + + + + | 01/24/ | Telephone | [facility] | Jared Mcdonough, | Other (prescription | | 2013 | | CARDIOLOGY [address] | MD [address] | clarification) | | | | [place], | [place], | | | | | [place] [address] | [place] [address] | | | | | [phone] | [phone] | | | | | | | [...] [place] | | | | | | [address] | | | | | | | | +--------+---------+ + + + | 11/24/ | Office | Cardiology | Flores, | | | 2019 | Visit | | SINDHU Erickson [address] | | | | | | [place], | | | | | | [place] [address] | | | | | | [phone] | | | | | | | | +--------+---------+ + + + documented as of this encounter Visit Diagnoses Not on filedocumented in this encounter"
--- OUTSIDE RECORDS SUMMARY | ~2019-01-15 | XMS | Encounter Summary ---
Demographics + + + | Address | [address] | | | [place] [address] | + + + | Home Phone [...] Team Providers + +------+ + | Care Technologist Infectious Disease Name | Role | Phone | + [...] Groin pain, | MD Jared | [address] | | | | | right Hx | [address] | [place], | | | | | of coronary | [address] | [place] [address] | | | | | angiogram | [place], | Phone: | | | | | Peritoneal | [place] [address] | [phone] | | | | | bleeding | Phone: | Fax: | | | | | Procedures | [phone] | [phone] | | | | | CT Abdomen | Fax: | | | | | | Pelvis wo | [phone] | | | | | | Contrast [...] Closed | | Radiology | Diagnoses | [place], | [address] | | | | | Groin pain, | MD Jared | [address] | | | | | right Hx | [address] | [place], | | | | | of coronary | [address] | [place] [address] | | | | | angiogram | [place], | Phone: | | | | | Peritoneal | [place] [address] | [phone] | | | | | bleeding | Phone: | Fax: | | | | | Procedures | [phone] | [phone] | | | | | CT Abdomen | Fax: | | | | | | Pelvis wo | [phone] | | | | | | Contrast | | | +--------+--------+ + + + + Encounter Details +--------+ + + + + | Date | Type | Department | Care Team | Description | +--------+ + + + + | 03/08/ | Hospital | [facility] | Jared Mcdonough, | Groin pain, right; | | 2014 | Encounter | MED [facility] [address] | [address] | Hx of coronary | | | | [place], | [place], | angiogram; | | | | [place] [address] | [place] [address] | Peritoneal bleeding | | | | [phone] | [phone] | | | | | | | [...] [place] | | | | | | [address] | | | | | | | | +--------+---------+ + + + | 11/24/ | Office | Cardiology | Flores, | | | 2020 | Visit | | SINDHU Erickson [address] | | | | | | [place], | | | | | | [place] [address] | | | | | | [phone] | | | | | | | [...] + | MISCELLANEOUS LAB | | | [phone] | + +---------+ + + | MISCELANIOUS LAB | | | [phone] | + +---------+ + + documented in [...]
--- OUTSIDE RECORDS SUMMARY | ~2019-01-15 | XMS | Encounter Summary ---
Demographics + + + | Address | [address] | | | [place] [address] | + + + | Home Phone [...] Providers + +------+ + | Care Credit Risk Modeler Name | Role | Phone | [...] | Concussion | Aaron Kim MD | Education Reviewer [address] | | | Required | | with brief | [address] | [place] | | | | | loss of | [address] | [place], [place] | | | | | consciousnes | [place], | [address] | | | | | s Word | [place] [address] | Phone: | | | | | finding | Phone: | [phone] | | | | | difficulty | [phone] | Fax: | | | | | [phone] | Fax: | [phone] | | | | | (ICD-10-CM) | [phone] | | | | | | - [...] + + | 08/07/ | Hospital | [facility] | Aaron Rodriguez, | Concussion with | | 2017 | Encounter | MED CTR SPEECH | MD [address] | brief (less than one | | | | THERAPY [address] | [place], [place] | hour) loss of | | | | [place], | [address] | consciousness | | | | [place] [address] | | (Primary Dx); | | | | [phone] | Kathi Soto, | Impaired memory; | [...] | | | | order to [facility]. | | | | | [...] | | | | send order to [facility] | | | | | [...] | | | | | ([facility]) | | | | | | + + + +---------+ + + | | Take 1 capsule by | | 0 | 10/13/19 | | | [id number]-[id number]-Yevv | mouth as needed. | | | 16 | 7 | | -Cod [id number] MG | | | | | | [...] | | | | | ([facility]) | | | | | | [...] Speech Pathologist - 08/08/2016 11:40 AM PDT [facility] THERAP[facility] [address] [place] [address] Speech Therapy Daily Treatment Note Date: 08/07/2016 [...] Flowsheet Row Office Visit from 05/01/2016 in [facility] THERAPY PT OP Rehab Precautions Precautions None Rehab Learning Style Flowsheet Ayde [facility] CONSULTING SOFTWARE ENGINEER OP EVAL from 05/16/2016 in [facility] O ffice Visit from 05/01/2016 in [facility] TH[facility] PT OP Learning Style Patient's [...] | | | | [place] | | | | | | [address] | | | | | | | | +--------+---------+ + + + | 11/24/ | Office | Cardiology | Flores, | | | 2019 | Visit | | SINDHU Erickson [address] | | | | | | [place], | | | | | | [place] [address] | | | | | | [phone] | | | | | | | [...]
--- OUTSIDE RECORDS SUMMARY | ~2019-01-15 | XMS | Encounter Summary ---
Demographics + + + | Address | [address] | | | [place] [address] | + + + | Home Phone [...] Providers + +------+ + | Care Supervisor Frame Assembly Name | Role | Phone | [...] 2012 | | PULMONARY [address] | Lortea Alonso MD | apnea (adult) | | | | [place], | | (pediatric) (Primary | | | | [place] [address] | | Dx) | | | | [phone] | | | +--------+ + + + [...] [place] | | | | | | [address] | | | | | | | | +--------+---------+ + + + | 11/24/ | Office | Cardiology | Flores, | | | 2019 | Visit | | SINDHU Erickson [address] | | | | | | [place], | | | | | | [place] [address] | | | | | | [phone] | | | | | | | | +--------+---------+ + + + documented as of this encounter Visit Diagnoses + + | Diagnosis | + + | Obstructive sleep apnea (adult) (pediatric) - Primary | + + documented in this encounter"
--- OUTSIDE RECORDS SUMMARY | ~2019-01-15 | XMS | Encounter Summary ---
Demographics + + + | Address | [address] | | | [place] [address] | + + + | Home Phone [...] Team Providers + +------+ + | Care Looseleaf Binder Coverer Name | Role | Phone | + [...] [address] | | | | | [place], | [address] [place] | | | | | [place] [address] | [place] [address] | | | | | [phone] | [phone] | | | | | | | [...] Speech Pathologist - 07/18/2016 10:[facility] [address] [facility] [address] Cancellation/No Show Date: 07/18/2016 Patient Information Patient Name: Rosario Malik Date of : 1965 Age: 51 y.o. Reason for missed visit:Pt is sick Phone call placed: yes - called to cancel Plan: Continue POC at next scheduled visit Electronically signed by: Cesia Su Speech Pathologist, 07/18/2016 10:08 Patient Name: Rosraio Malik/: 1965/ Tdocumented in this encounter Plan [...] [place] | | | | | | [id number] | | | | | | | | +--------+---------+ + + + | 11/24/ | Office | Cardiology | Flores | | | 2019 | Visit | | SINDHU Erickson [address] | | | | | | [place] | | | | | | [place] [address] | | | | | | [phone] | | | | | | | | +--------+---------+ + + + documented as of this encounter Visit Diagnoses Not on filedocumented in this encounter"
--- OUTSIDE RECORDS SUMMARY | ~2019-01-15 | XMS | Encounter Summary ---
Demographics + + + | Address | [address] | | | [place] [address] | + + + | Home Phone [...] Team Providers + +------+ + | Care Cargo Operations Agent Name | Role | Phone | [...] | (obstructive | [address] | [place] | | | | | sleep | ST [place] | [place], | | | | | apnea) | [place], [place] | [place] [address] | | | | | Procedures | [address] | Phone: | | | | | [place] POLYSOM | Phone: | [phone] | | | | | 6/>YRS SLEEP | [phone] | Fax: | | | | | 4/> ADDL | Fax: | [phone] | | | | | ALESSIA ATTND | [phone] | | | | | | [place] POLYS[place] | | | | | | [...] + + | 08/03/ | Hospital | [facility] | Meghan Garcia MD | GARRY (obstructive | | 2019 - | Encounter | MED CTR SLEEP | [address] | sleep apnea) | | | | CENTER [address] [place] | [place] | | | 08/04/ | | [place] | [address] | | | 2018 | | [address] | | | | | | [phone] | | | +--------+ + + + [...] [place] | | | | | | [address] | | | | | | | | +--------+---------+ + + + | 11/24/ | Office | Cardiology | [place], | | | 2019 | Visit | | SINDHU Erickson [address] | | | | | | [place], | | | | | | [place] [address] | | | | | | [phone] | | | | | | | [...] [facility] | | | [place] [address] Polysomnogram | | | Report on Rosario [...] from Dr. Alarcon | | | in [place], [place]. 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 We performed a CPAP titration study on [...] | | | during sleep study as usual.Thread Laster note: Patient continues to | | | [...] this chart may have been created with [employer] | | | voice recognition software. Occasional [...] this chart may have been created with [employer] voice | | |recognition software. Occasional wrong-word [...] PDT [facility] | | [place], [place] [address]Llsobpdroxuff Report on Rosario Malik performed on August [...] | | notes from Dr. Alarcon in [place], [place]. 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 Meghna Garcia, | | MDPortions of this chart may have been created with [employer] voice recognition software. | | Occasional wrong-word [...]
--- OUTSIDE RECORDS SUMMARY | ~2019-01-15 | XMS | Encounter Summary ---
Demographics + + + | Address | [address] | | | [place] [address] | + + + | Home Phone [...] Team Providers + +------+ + | Care Sergeant Missile Crewman Name | Role | Phone | + [...] [address] | | | | | [place], | [place], | | | | | [place] [address] | [place] [address] | | | | | [phone] | [phone] | | | | | | | [...] | | | | | | [place] [address] | | | | | | [phone] | | | | | | | | +--------+---------+ + + + documented as of this encounter Visit Diagnoses Not on filedocumented in this encounter"
--- OUTSIDE RECORDS SUMMARY | ~2019-01-15 | XMS | Encounter Summary ---
Demographics + + + | Address | [address] | | | [place] [address] | + + + | Home Phone [...] Team Providers + +------+ + | Care Subwarehouse Supervisor Name | Role | Phone | + +------+ + | Juan Cherry DO | PCP | | + +------+ + Reason for Visit +--------+ + | Reason | Comments | +--------+ + | LABS | | +--------+ + Encounter Details +--------+ + + + + | Date | Type | Department | Care Team | Description | +--------+ + + + + | 08/20/ | Telephone | [facility] | [place], | LABS | | 2018 | | CARDIOLOGY [address] | Georgina SENIOR PRICING ANALYST [address] | | | | | [place], | [place], | | | | | [place] [address] | [place] [address] | | | | | [phone] | [phone] | | | | | | | [...] [place] | | | | | | [address] | | | | | | | | +--------+---------+ + + + | 11/24/ | Office | Cardiology | [place], | | | 2019 | Visit | | SINDHU Erickson [address] | | | | | | [place], | | | | | | [place] [address] | | | | | | [phone] | | | | | | | [...]
--- OUTSIDE RECORDS SUMMARY | ~2019-01-15 | XMS | Encounter Summary ---
Demographics + + + | Address | [address] | | | [place] [address] | + + + | Home Phone [...] Providers + +------+ + | Care Architectural Sales Consultant Name | Role | Phone [...] (Primary | | | | [place] | [place] | Dx); Pyuria | | | | [address] | [place] [address] | | | | | [phone] | [phone] | | | | | | | [...] Action Dose Route Administered By 10/23/2015 Given 23166 Units Subcutaneous Marysol Nunes RN lidocaine 2% [...] [place] | | | | | | [address] | | | | | | | | +--------+---------+ + + + | 11/24/ | Office | Cardiology | [place], | | | 2019 | Visit | | SINDHU Erickson [address] | | | | | | [place], | | | | | | [place] [address] | | | | | | [phone] | | | | | | | [...] + | [facility] | [address] | [place] | [phone] | | [facility] | | [address] | | | - LABORATORY | | [...] [address] | [place] | [phone] | | [facility] | | [address] | | | - LABORATORY | | [...] 1.001 - 1.030 | | | | [place], | | | | | | [facility], [...]
--- OUTSIDE RECORDS SUMMARY | ~2019-01-15 | XMS | Encounter Summary ---
Demographics + + + | Address | [address] | | | [place] [address] | + + + | Home Phone [...] Team Providers + +------+ + | Care Equalizer Operator Name | Role | Phone | + +------+ + | Juan Cherry DO | PCP | | + +------+ + Reason for Visit + + + | Reason | Comments | + + + | Follow-up | Tachyarrhythmia | + + + | Results | 48 hour Holter monitor 08/12/2013 ([facility]) | + + + | Palpitations | | + + + Encounter Details +--------+ + + + + | Date | Type | Department | Care Team | Description | +--------+ + + + + | 10/05/ | Off-Site | [facility] [place] | Jared Mcdonough, | Palpitations | | 2013 | Visit | CARDIOLOGY [address] | [address] | (Primary Dx); | | | | [place], | 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 Patient denies chest [...] sleep apnea COPD (chronic obstructive pulmonary disease) ([facility]) Healthcare maintenance Preventative health care GARRY (obstructive sleep apnea) Multiple personality disorder GERD (gastroesophageal reflux disease) Diverticulosis Insomnia Sprain of chest wall Benign neoplasm of pituitary gland and craniopharyngeal duct (pouch) ([facility]) Status post total hysterectomy Irritable colon Hypoxemia ([facility]) Allergic rhinitis Tachycardia Palpitations Tachyarrhythmia CURRENT MEDICATIONS [...] by mouth Daily. Respiratory Therapy Supplies [facility] Incentive spirometer. Please provide instructions in use. Dx: 848.8 MADELEINE: 3 months 1 each 99 Res[facility] Please provide patient with necessary [...] and ventricular function don e at the [facility]. LVEF 78%. C. Holter Monitor [...] She is in a class II of [place] [employer] functional class. There is [...] patient will be referred to Dr. Ding, it training specialist at [facility] for PAT ablati on 3. Followup in 3 months Electronically signed by: Jared Mcdonough MD [facility] 10/05/2013 11:25 Portions of this chart may have been created with [email or web address] voice recognition software. Occasi onal wrong-word or [...] | | | | | | [place] [address] | | | | | | [phone] | | | | | | | | +--------+---------+ + + + documented as of this encounter Visit Diagnoses + + | Diagnosis | + + | Palpitations - Primary | + + | Paroxysmal atrial tachycardia (HCC) Paroxysmal supraventricular tachycardia | + + documented in this encounter
--- OUTSIDE RECORDS SUMMARY | ~2019-01-15 | XMS | Encounter Summary ---
Demographics + + + | Address | [address] | | | [place] [address] | + + + | Home Phone [...] Providers + +------+ + | Care Tile Conduit Layer Name | Role | Phone | + +------+ + PCP | Unavailable | + +------+ + Encounter Details +--------+ + + + + | Date | Type | Department | Care Team | Description | +--------+ + + + + | 12/28/ | Hospital | [facility] | Ozzy Delcid, | | | 2009 - | Encounter | MED CTR OP REHAB | [address] | | | | | [address] [place] | [place] | | | 01/23/ | | [place] [address] | [address] | | | 2009 | | [phone] | | | +--------+ + + + [...] [place] | | | | | | [address] | | | | | | | | +--------+---------+ + + + | 11/24/ | Office | Cardiology | [place], | | | 2019 | Visit | | SINDHU Erickson [address] | | | | | | [place], | | | | | | [place] [address] | | | | | | [phone] | | | | | | | | +--------+---------+ + + + documented as of this encounter Visit Diagnoses Not on filedocumented in this encounter"
--- OUTSIDE RECORDS SUMMARY | ~2019-01-15 | XMS | Encounter Summary ---
Demographics + + + | Address | [address] | | | [place] [address] | + + + | Home Phone [...] Team Providers + +------+ + | Care Ink Grinder Name | Role | Phone | [...] & | | | | [address] | [place] | Bladder Biopsy | | | | [place], [place] | [place] [address] | | | | | [address] | [phone] | | | | | [phone] | | | +--------+---------+ + + + [...] (the anesthesiologist will discuss these with you) 3218-3943 [employer]. [address] [place] [address]. All righ ts reserved. This information is [...] | | | | | order to [facility]. | | | | [...] | | | | [facility]. | | | | | | [...] | 0 | 10/13/19 | | | Oyxgisqiks-TRQY-Scrl | mouth as needed. | | | 16 | 7 | | -Cod [id number] MG | | | | | | [...] [place] | | | | | | [address] | | | | | | | | +--------+---------+ + + + | 11/24/ | Office | Cardiology | [place], | | | 2019 | Visit | | SINDHU Erickson [address] | | | | | | [place], | | | | | | [place] [address] | | | | | | [phone] | | | | | | | [...] ST. | [address] | [place], [place] | [phone] | | [facility] | | [address] | | | - LABORATORY | | [...] mild chronic mucosal | | | inflammation. JVR[facility]:C2NR GROSS DESCRIPTION: The specimen is | | | received in three parts. A. The specimen is labeled and | | | designated "MilfordRosarionn, posterior bladder wall". Received | | | in formalin is one pink colored tissue fragment, it measures 0.25 x | | | 0.4 cm. all into (A1). B. The specimen is labeled and designated | | | "[place], Rosario Rea, right bladder wall". Received in formalin is | | | one pink colored tissue fragment, 0.3 x 0.3 cm, all into (B1). C. | | | The specimen is labeled and designated "[place], Rosario Rea, left | | | bladder wall". Received in formalin is one pink colored tissue | | | fragment, it measures 0.3 x 0.3 cm, all into (C1). yt:CLR:[facility] | | | MICROSCOPIC EXAMINATION: Histologic sections of all submitted blocks | | | are examined by light microscopy. These findings, together with the | | | gross examination, support the pathologic diagnosis. PERFORMING | | | LABORATORY: Tissue processing and slide preparation were performed by | | | [facility], [address] [place] [address], [address], [place] [address] | | | (Train Conductor: Kale Estrella M.D.; CLIA#: [id number]). | | | Professional interpretation was performed by [facility], | | | [facility], [address] [facility] | | | [place] [address] (Train Conductor: Kale Estrella M.D.; CLIA#: | | | [id number]). Diagnostician: Kale Estrella MD Pathologist | | [...] | | | | | | use [place] 10/325 if ordered. If | | | [...]
--- OUTSIDE RECORDS SUMMARY | ~2019-01-15 | XMS | Encounter Summary ---
Demographics + + + | Address | [address] | | | [place] [address] | + + + | Home Phone [...] Providers + +------+ + | Care Rn Integrity Name | Role | Phone | + [...] Insomnia; Need for | | | | [place], | | influenza | | | | [place] [address] | | vaccination | | | | [phone] | | | +--------+---------+ + + + [...] Maxim Delgado. Insomnia She continues to have manager cardiac cath awakenings. I think this is in part [...] before bedtime. Need for influenza vaccination - MD FLU VACCINE =>3YO PRESERVATIVE FREE IM 30 [...] [place] | | | | | | [address] | | | | | | | | +--------+---------+ + + + | 11/24/ | Office | Cardiology | [place], | | | 2019 | Visit | | SINDHU Erickson [address] | | | | | | [place], | | | | | | [place] [address] | | | | | | [phone] | | | | | | | [...]
--- OUTSIDE RECORDS SUMMARY | ~2019-01-15 | XMS | Encounter Summary ---
Demographics + + + | Address | [address] | | | [place] [address] | + + + | Home Phone [...] Team Providers + +------+ + | Care Victims Advocate Clerk/Specialist Name | Role | Phone | + [...] + + | 05/22/ | Clinical | [facility] | Andriy Weber | Interstitial | | 2018 | Support | [address] | MD [address] | cystitis (chronic) | | | | [place], [place] | [facility]OM [facility] | without hematuria | | | | [address] | [place] [address] | | | | | [phone] | [phone] | | | | | | | [...] was discharged home and will return to [facility] in 1 week for next treatment.Electronically [...] | | | | | | [place] [address] | | | | | | [phone] | | | | | | | [...] 1.001 - 1.030 | | | | [place], | | | | | | [facility], [...]
--- OUTSIDE RECORDS SUMMARY | ~2019-01-15 | XMS | Encounter Summary ---
Demographics + + + | Address | [address] | | | [place] [address] | + + + | Home Phone [...] Team Providers + +------+ + | Care Mission Worker Name | Role | Phone | [...] + | 10/05/ | Telephone | [facility] | Sharonda Delmycaitie, | Referral | | 2013 | | CARDIOLOGY [address] | [address] [place] | | | | | [place], | [place], | | | | | [place] [address] | [place] [address] | | | | | [phone] | [phone] | | | | | | | [...] | | | | | | [place] [address] | | | | | | [phone] | | | | | | | | +--------+---------+ + + + documented as of this encounter Visit Diagnoses Not on filedocumented in this encounter"
--- OUTSIDE RECORDS SUMMARY | ~2019-01-15 | XMS | Encounter Summary ---
Demographics + + + | Address | [address] | | | [place] [address] | + + + | Home Phone [...] Team Providers + +------+ + | Care Diamond Die Driller Name | Role | Phone | [...] | | | | | | [place] [address] | | | | | | [phone] | | | +--------+ + + + [...] [place] | | | | | | [address] | | | | | | | | +--------+---------+ + + + | 11/24/ | Office | Cardiology | [place], | | | 2019 | Visit | | SINDHU Erickson [address] | | | | | | [place], | | | | | | [place] [address] | | | | | | [phone] | | | | | | | | +--------+---------+ + + + documented as of this encounter Visit Diagnoses Not on filedocumented in this encounter"
--- OUTSIDE RECORDS SUMMARY | ~2019-01-15 | XMS | Encounter Summary ---
Demographics + + + | Address | [address] | | | [place] [address] | + + + | Home Phone [...] Team Providers + +------+ + | Care Resident Care Coordinator Name | Role | Phone [...] Alonso MD | | | | | [place], | | | | | | [place] [address] | | | | | | [phone] | | | +--------+--------+ + + + [...] | | | | | | [place] [address] | | | | | | [phone] | | | | | | | | +--------+---------+ + + + documented as of this encounter Visit Diagnoses Not on filedocumented in this encounter"
--- OUTSIDE RECORDS SUMMARY | ~2019-01-15 | XMS | Encounter Summary ---
Demographics + + + | Address | [address] | | | [place] [address] | + + + | Home Phone [...] Providers + +------+ + | Care Glass Novelty Maker Name | Role | Phone | + +------+ + PCP | Unavailable | + +------+ + Encounter Details +--------+ + + + + | Date | Type | Department | Care Team | Description | +--------+ + + + + | 04/21/ | Hospital | [facility] | Nestor Martinez, | | | 2010 | Encounter | MED CTR EMERGENCY | [address] | | | | | CENTER [address] | [place], [place] | | | | | [place] | [address] | | | | | [address] | | | | | | [phone] | | | +--------+ + + + [...] [place] | | | | | | [id number] | | | | | | | | +--------+---------+ + + + | 11/24/ | Office | Cardiology | [place], | | | 2019 | Visit | | SINDHU Erickson [address] | | | | | | [place], | | | | | | [place] [address] | | | | | | [phone] | | | | | | | | +--------+---------+ + + + documented as of this encounter Visit Diagnoses Not on filedocumented in this encounter"
--- OUTSIDE RECORDS SUMMARY | ~2019-01-15 | XMS | Encounter Summary ---
Demographics + + + | Address | [address] | | | [place] [address] | + + + | Home Phone [...] Providers + +------+ + | Care Recruiting Administrator Name | Role | Phone | [...] | | | | unspecified | | [address] | | | | | laterality | | Phone: | | | | | Primary | | [phone] | | | | | localized | | Fax: | | | | | osteoarthros | | [phone] | | | | | is of hand, | | | | | | | unspecified | | | | | | | laterality | | | | | | | [M19.049 | | | | | | | Procedures | | | | | | | CT REPAIR | | | | | | [...] tendon | | | | [address] | [place], [place] | interposition | | | | [place], [place] | [address] | | | | | [address] | [phone] | | | | | [phone] | | | +--------+---------+ + + + [...] what medicines and drugsyou take. This includes vcuf-lzb-ikp nter medicines, herbs, supplements, alcohol or other [...] adam p you safe. Date Last Reviewed: 01/25/201619998186-8120 [employer]. [address] [place] [address]. All righ ts reserved. This information is not intended as a substitute for professional medical care. Always follow your healthcare professional's instructions. [facility] Post-op Instructions - Thumb Surgery The following instructions are meant to guide you following surgery until your first post-o perative visit 7-12 days later. For any problems or questions, please call our office at [phone], Friday through Friday, 9:00 am - 5:00 [...] you may have received from the [facility], advice from friends, family members, ecclesiastical leaders, grocery store clerks, fox lee, Anu, Dr. Jain, Dr. Weinstein, sports heroes, etc. If unsure, please call our office. Thank you, Jesus Brady D.O. [facility] [address] [place] [address] Your post op appointment is scheduled for Friday06/29/18 at 9:15am. Please check in at 8:45 am for X-rays at the [facility]. documented in this encounter Medications at [...] | | | | order to [facility]. | | | | | [...] | 1 | 03/13/19 | | | (SORAYAKAPIL-CON M20) 20 | mouth Daily. | tablet [...] [place] | | | | | | [address] | | | | | | | | +--------+---------+ + + + | 11/24/ | Office | Cardiology | [place], | | | 2019 | Visit | | SINDHU Erickson [address] | | | | | | [place], | | | | | | [place] [address] | | | | | | [phone] | | | | | | | [...] + documented in this encounter Results MICKI C-Arm Stats No Charge (06/18/2018 3:21 PM [...] [address] | [place] | [phone] | | [facility] | | [address] | | | - LABORATORY | | [...]
--- OUTSIDE RECORDS SUMMARY | ~2019-01-15 | XMS | Encounter Summary ---
Demographics + + + | Address | [address] | | | [place] [address] | + + + | Home Phone [...] Providers + +------+ + | Care Spa Associate Name | Role | Phone | [...] [address] | | | | | [place], | [place] | | | | | [place] [address] | [address] | | | | | [phone] | | | +--------+--------+ + + + [...] [place] | | | | | | [address] | | | | | | | | +--------+---------+ + + + | 11/24/ | Office | Cardiology | [place], | | | 2019 | Visit | | SINDHU Erickson [address] | | | | | | [place], | | | | | | [place] [address] | | | | | | [phone] | | | | | | | | +--------+---------+ + + + documented as of this encounter Visit Diagnoses + + | Diagnosis | + + | COPD (chronic obstructive pulmonary disease) (HCC) - Primary Chronic airway | | obstruction, not elsewhere classified | + + documented in this encounter"
--- OUTSIDE RECORDS SUMMARY | ~2019-01-15 | XMS | Encounter Summary ---
Demographics + + + | Address | [address] | | | [place] [address] | + + + | Home Phone [...] Providers + +------+ + | Care Wheel Mill Operator Name | Role | Phone [...] + + | 06/23/ | Hospital | [facility] | [place], | Racing heart beat | | 2018 | Encounter | MED CTR NUCLEAR | SINDHU Erickson [address] | | | | | MEDICINE [address] | [place], | | | | | [place], | [place] [address] | | | | | [place] [address] | [phone] | | | | | [phone] | | | +--------+ + + + [...] [place] | | | | | | [address] | | | | | | | | +--------+---------+ + + + | 11/24/ | Office | Cardiology | [place], | | | 2019 | Visit | | SINDHU Erickson [address] | | | | | | [place], | | | | | | [place] [address] | | | | | | [phone] | | | | | | | | +--------+---------+ + + + documented as of this encounter Visit Diagnoses + + | Diagnosis | + + | Racing heart beat Tachycardia, unspecified | + + documented in this encounter"
--- OUTSIDE RECORDS SUMMARY | ~2019-01-15 | XMS | Encounter Summary ---
Demographics + + + | Address | [address] | | | [place] [address] | + + + | Home Phone [...] Team Providers + +------+ + | Care Hose Cementer Name | Role | Phone | + [...] + + | 07/19/ | Telephone | [facility] [place] | Kevin Sandoval, | Other (medication | | 2014 | | PULMONARY [address] | MD [address] | request) | | | | [place], | [place] | | | | | [place] [address] | [address] | | | | | [phone] | | | +--------+ + + + [...] [place] | | | | | | [address] | | | | | | | | +--------+---------+ + + + | 11/24/ | Office | Cardiology | [place], | | | 2019 | Visit | | SINDHU Erickson [address] | | | | | | [place], | | | | | | [place] [address] | | | | | | [phone] | | | | | | | | +--------+---------+ + + + documented as of this encounter Visit Diagnoses Not on filedocumented in this encounter"
--- OUTSIDE RECORDS SUMMARY | ~2019-01-15 | XMS | Encounter Summary ---
Demographics + + + | Address | [address] | | | [place] [address] | + + + | Home Phone [...] Providers + +------+ + | Care Food Safety Director Name | Role | Phone | + +------+ + | Juan Cherry DO | PCP | | + +------+ + Encounter Details +--------+ + + + + | Date | Type | Department | Care Team | Description | +--------+ + + + + | 02/12/ | Hospital | [facility] | Nestor Martinez, | | | 2012 | Encounter | MED CTR EMERGENCY | MD [address] | | | | | CENTER [address] | [place], [place] | | | | | [place], [place] | [address] | | | | | [address] | | | | | | [phone] | | | +--------+ + + + [...] | | | | order to [facility]. | | | | | [...] [place] | | | | | | [address] | | | | | | | | +--------+---------+ + + + | 11/24/ | Office | Cardiology | [place], | | | 2019 | Visit | | SINDHU Erickson [address] | | | | | | [place], | | | | | | [place] [address] | | | | | | [phone] | | | | | | | | +--------+---------+ + + + documented as of this encounter Visit Diagnoses Not on filedocumented in this encounter"
--- OUTSIDE RECORDS SUMMARY | ~2019-01-15 | XMS | Encounter Summary ---
Demographics + + + | Address | [address] | | | [place] [address] | + + + | Home Phone [...] Providers + +------+ + | Care Community Worker Name | Role | Phone | [...] + | 09/07/ | [facility] [place] | [place], | COPD exacerbation | | 2012 | Visit | PULMONARY [address] | Loreta Alonso MD | ([facility]) (Primary Dx); | | | | [place], | | Sleep apnea; | | | | [place] [address] | | Allergic rhinitis; | | | | [phone] | | Insomnia | +--------+---------+ + + [...] still having dizziness, let Dr. Cherry know. Legal Process Specialist at [facility]: Ruben Tucker MD documented in this encounter Progress Notes Loreta London MD - 09/07/2012 10:42 AM PDTFormatting of this note might be differe nt from the original. Sleep Follow Up MD [place] Pulmonary and Critical Care [facility] [address] [place], [address] [facility] Rosario Malik is a 47 y.o. female [...] planning on her d ad driving to [place]. Past Medical History Past Medical History Diagnosis [...] not cancer Colonoscopy 03/2010 Colonoscopy: 1995 at [facility] Social History: History Social History Marital Status: Single Spouse Name: N/A Number of Children: 1 Years of Education: 13 Occupational History [employer] Social History Main Topics Smoking status: [...] AHI: 47.1 (complex sleep apnea) Machine type: esolidar auto CPAP Home Health Company: [employer] CPAP Pressure: 11-14 cmH2O Median Titrated Pressure: [...] to clinic not scheduled given move to [place], or sooner with concerns. CC: Juan Cherry Portions of this report were transcribed using voice recognition software. Every effort wa s made to ensure accuracy; however, inadvertent computerized interior painter errors may be pre sent. documented in [...] | | | | | | [place] [address] | | | | | | [phone] | | | | | | | [...]
--- OUTSIDE RECORDS SUMMARY | ~2019-01-15 | XMS | Encounter Summary ---
Demographics + + + | Address | [address] | | | [place] [address] | + + + | Home Phone [...] Team Providers + +------+ + | Care Erco Machine Operator Name | Role | Phone [...] [address] | | | | | [place], | [place], | | | | | [place] [address] | [place] [address] | | | | | [phone] | [phone] | | | | | | | [...] | | | | | | [place] [address] | | | | | | [phone] | | | | | | | | +--------+---------+ + + + documented as of this encounter Visit Diagnoses Not on filedocumented in this encounter"
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
--- OUTSIDE RECORDS SUMMARY | ~2019-01-15 | XMS | Encounter Summary ---
Demographics + + + | Address | [address] | | | [place] [address] | + + + | Home Phone [...] + +------+ + | Care Professor Of Criminal Justice Name | Role | Phone | + [...] PULMONARY [address] | RN | ([facility]); COPD (chronic | | | | [place], | | obstructive | | | | [place] [address] | | pulmonary disease) | | | | [phone] | | ([facility]) | +--------+ + + + [...] | | | | | [facility] | | | | | | [address] | | | | | | | | +--------+---------+ + + + | 11/24/ | Office | Cardiology | [place], | | | 2019 | Visit | | SINDHU Erickson [address] | | | | | | [place], | | | | | | [place] [address] | | | | | | [phone] | | | | | | | [...]
--- OUTSIDE RECORDS SUMMARY | ~2019-01-15 | XMS | Clinical Summary ---
Demographics + + + | Address | [address] | | | [place] [address] | + + + | Home Phone [...] Providers + +------+ + | Care Senior Science Consultant Name | Role | Phone | [...] | | | | [facility]. | | | | | | | [...] [facility]. | | | | | | [...] Please send | | | order to [facility]., | | | Reported on | | | 12/23/2018 11:49 AM | +---+ + + + +--------+---+------+------+-------+ | oxygen | Inhale into the | | 0 | | | Activ | | | lungs continuous. 3 | | | | | e | | | liters while awake | | | | | | + + +--------+---+------+------+-------+ | predniSONE | Take 10 mg by mouth | | 0 | | | Activ | | (DELTASONE) 10 mg | Daily. | | | | | e | | tablet | | | | | | | + + +--------+---+------+------+-------+ | roflumilast | Take 1 tablet by | 30 | 3 | 07/2 | | Activ | | (DALIRESP) 500 mcg | mouth Daily. | tablet | | 1/20 | | e | | tablet | | | | 15 | | | + + +--------+---+------+------+-------+ | metFORMIN | Take 500 mg by mouth | | 3 | 09/0 | | Activ | | (GLUCOPHAGE) 500 mg | 2 times daily (with | | | 8/20 | | e | | tablet | breakfast & | | | 16 | | | | | dinner). | | | | | | + + +--------+---+------+------+-------+ | traMADol (ULTRAM) | Take 50 mg by mouth | | 0 | 02/0 | | Activ | | 50 mg tablet | 4 times daily. | | | 3 | | e | | | | | | 17 | | | + + +--------+---+------+------+-------+ | hydrOXYzine | Take 1 tablet by | | 0 | 10/25 | | Activ | | hydrochloride | mouth Daily. | | | 0/20 | | e | | (ATARAX) 25 mg | | | | 18 | | | | tablet | | | | | | | + + +--------+---+------+------+-------+ | | Inhale 2 puffs into | | 0 | | | Activ | | fluticasone-salmeter | the lungs 2 times | | | | | e | | ol (ADVAIR HFA) | daily. | | | | | | | 230-21 MCG/ACT | | | | | | | | inhaler | | | | | | | + + +--------+---+------+------+-------+ | oxybutynin | Take 5 mg by mouth | | 0 | | | Activ | | (DITROPAN) 5 mg | Daily. | | | | | e | | tablet | | | | | | | + + +--------+---+------+------+-------+ | Albuterol Sulfate | Inhale 2 puffs into | | 0 | | | Activ | | (VENTOLIN HFA IN) | the lungs 2 times | | | | | e | | | daily. | | | | | | + + +--------+---+------+------+-------+ | SUMAtriptan | Take 100 mg by mouth | | 0 | | | Activ | | (IMITREX) 100 mg | as needed for | | | | | e | | tablet | Migraine. | | | | | | + + +--------+---+------+------+-------+ | fluticasone | 1 spray by Nasal | | 0 | | | Activ | | (FLONASE) 50 | route Daily. | | | | | e | | mcg/nasal spray | | | | | | | + + +--------+---+------+------+-------+ | levothyroxine | Take 1 tablet by | 90 | 3 | 07/1 | | Activ | | (SYNTHROID) 75 MCG | mouth every morning | tablet | | 5/20 | | e | | tablet | (before breakfast). | | | 19 | | | + + +--------+---+------+------+-------+ | VENTOLIN HFA 108 | | | 0 | 07/0 | | Activ | | (90 Base) MCG/ACT | | | | 5/20 | | e | | inhaler | | | | 19 | | | + + +--------+---+------+------+-------+ | potassium chloride | Take 1 tablet by | 90 | 3 | 07/2 | | Activ | | (KLOR-CON M20) 20 | mouth Daily. | tablet | | 9/20 | | e | | mEq ER tablet | | | | 19 | | | + + +--------+---+------+------+-------+ | pantoprazole | TAKE ONE TABLET BY | 90 | 0 | 10/0 | | Activ | | (PROTONIX) 40 mg | MOUTH EVERY DAY IN | tablet | | 7/20 | | e | | tablet | THE MORNING WITH | | | 19 | | | | | BREAKFAST | | | | | | + + +--------+---+------+------+-------+ | zolpidem (AMBIEN) | Take 1 tablet by | | 0 | 10/25 | | Activ | | 10 mg tablet | mouth Daily. | | | 0/20 | | e | | | | | | 19 | | | + + +--------+---+------+------+-------+ | risperiDONE | Take 2 mg by mouth | | 0 | 11/25 | | Activ | | (RISPERDAL) 2 MG | Daily. | | | 03/15 | | e | | tablet | | | | 19 | | | + + +--------+---+------+------+-------+ | magnesium oxide | Take 1 tablet by | 30 | 5 | 10/3 | | Activ | | (MAG-OX) 400 mg | mouth Daily. | tablet | | 0/20 | | e | | tablet | | | | 19 | | | + + +--------+---+------+------+-------+ | digoxin (LANOXIN) | Take 1 tablet by | 90 | 3 | 12/2 | 10/3 | Disco | | 125 mcg tablet | mouth Daily. | tablet | | / | 0/20 | ntinu | | | | | | 18 | 19 | ed | | | | | | | | (Serena | | | | | | | | ent | | | | | | | | Not | | | | | | | | Takin | | | | | | | | g) | + + +--------+---+------+------+-------+ | metoprolol | Take 0.5 tablets by | 90 | 3 | 01/2 | 10/3 | Disco | | tartrate (LOPRESSOR) | mouth 2 times daily. | tablet | | 2/20 | 0/20 | ntinu | | 25 mg tablet | | | | 19 | 19 | ed | | | | | | | | (Ther | | | | | | | | apy | | | | | | | | compl | | | | | | | | eted) | + + +--------+---+------+------+-------+ | ondansetron | Take 4 mg by mouth | | 0 | 10/0 | 10/3 | Disco | | (ZOFRAN ODT) 4 mg | Every 6 hours as | | | 7/20 | 0/20 | ntinu | | disintegrating | needed. | | | 16 | 19 | ed | | tablet | | | | | | (Serena | | | | | | | | ent | | | | | | | | Not | | | | | | | | Takin | | | | | | | | g) | + + +--------+---+------+------+-------+ | | Take 1-2 tablets by | 30 | 0 | 04/2 | 10/3 | Disco | | HYDROcodone-acetamin | mouth every 6 hours | tablet | | 5/20 | 0/20 | ntinu | | ophen (NORCO) 10-325 | as needed for Pain. | | | 19 | 19 | ed | | mg per tablet | | | | | | (Serena | | | | | | | | ent | | | | | | | | Not | | | | | | | | Takin | | | | | | | | g) | + + +--------+---+------+------+-------+ | | | | 0 | 05/2 | 10/3 | Disco | | HYDROcodone-acetamin | | | | 1/20 | 0/20 | ntinu | | ophen (NORCO) 5-325 | | | | 19 | 19 | ed | | mg per tablet | | | | | | (Serena | | | | | | | | ent | | | | | | | | Not | | | | | | | | Takin | | | | | | | | g) | + + +--------+---+------+------+-------+ | | | | 0 | 05/1 | 10/3 | Disco | | HYDROcodone-acetamin | | | | 0/20 | 0/20 | ntinu | | ophen (NORCO) | | | | 19 | 19 | ed | | 7.5-325 mg per | | | | | | (Serena | | tablet | | | | | | ent | | | | | | | | Not | | | | | | | | Takin | | | | | | | | g) | + + +--------+---+------+------+-------+ + + +-------+ +------+------+-------+ | Hospital, Clinic, [...] 1 mEq/mL injection | | | | 04/15 | | e | | 10 mEqIndications: [...] + + + + + | Overview: [facility] 04/12/2010 Diverticulosis | | | | Next Colonoscopy | | | | Mammo | | | | Pap | | | | | + + + + + | Healthcare maintenance | 02/27/2012 | + + + + + | Overview: [facility]: 04/12/2010 Diverticulosis | + + + + [...] + + | Overview: Echocardiogram, 08/23/2013 at [facility] shows normal | | systolic left [...] maximum rate was 163 bpm on | 18:29, Diary was not returned and no symptoms | | reported. | + + + +---+ | Pulmonary emphysema | | + +---+ + + | Overview: LAUREANOU [id number] Decision | + + + +---+ | [...] | +--------+ + + + + | 12/23/ | Office [...] | | | due to medication | +--------+ + + + + | 11/27/ | Refill | Cardiology | [place], | Medication Refill | | 2018 | | | SINDHU Erickson | | +--------+ + + + + | 10/19/ | Abstract | Cardiology | [place], | | | 2018 | | | SINDHU Erickson | | +--------+ + + + + from [...] [place] | | | | | | [id number] | | | | | | | | +--------+---------+ + + + | 11/24/ | Office | Cardiology | [place], | | | 2019 | Visit | | SINDHU Erickson [address] | | | | | | [place] | | | | | | [place] [address] | | | | | | [phone] | | | | | | | [...] CLAY | | | | | | ([id number]) on 12/23/2018 | | | | | [...] +--------+ +---------+--------+ | MEDICARE | MEDICA | [id number] | | [phone] | | Medica | [...] Self | [birth year] | [address] | | | al/Fam | | 1965 | [phone] | 1 [place] | | | rigoberto | | | 5 (Home) | [address] | | | | | | [phone] | | | | | | | 4 (Work) | | + +--------+ +--------+ + + | Rosario Malik | Worker | Self | [birth year] | | [address] | | | s Comp | | 1965 | [phone] | [place] | | | | | | 1 ([place]) | [address] | | | | | | [phone] | | | | | | | 3 (Work) | | + +--------+ +--------+ + + Advance Directives + + + + + | Type | Date Recorded | Patient | Explanation | | | | Butadiene Converter Helper | | + + + + + | Power of | | | | | Monitor And Storage Bin Tender | | | | + + + [...]
--- OUTSIDE RECORDS SUMMARY | ~2019-01-15 | XMS | Encounter Summary ---
Demographics + + + | Address | [address] | | | [place] [address] | + + + | Home Phone [...] Team Providers + +------+ + | Care Cat Sitter Name | Role | Phone | + +------+ + | Juan Cherry DO | PCP | | + +------+ + Encounter Details +--------+ + + + + | Date | Type | Department | Care Team | Description | +--------+ + + + + | 10/19/ | Hospital | [facility] | Kevin Sandoval, | COPD (chronic | | 2013 | Encounter | MED CTR PULMONARY | MD [address] | obstructive | | | | FUNCTION [address] | [place], [place] | pulmonary disease) | | | | [place], | [address] | (HCC) | | | | [place] [address] | | | | | | [phone] | | | +--------+ + + + [...] tab | | | | | | ([facility]) | every 3 days | | [...] [place] | | | | | | [id number] | | | | | | | | +--------+---------+ + + + | 11/24/ | Office | Cardiology | [place], | | | 2019 | Visit | | SINDHU Erickson W | | | | | | [place] | | | | | | [place] [address] | | | | | | [phone] | | | | | | | [...]
--- OUTSIDE RECORDS SUMMARY | ~2019-01-15 | XMS | Encounter Summary ---
Demographics + + + | Address | [address] | | | [place] [address] | + + + | Home Phone [...] Team Providers + +------+ + | Care Elastic Attacher Chainstitch Name | Role | Phone | + [...] sleep | MD [address] | | | | | apnea) | [address] | [place], | | | | | Central | [place], | [place] [address] | | | | | sleep apnea | [place] [address] | Phone: | | | | | | | [phone] | | | | | | | Fax: | | | | | | | [phone] | +--------+ + + + + + [...] | sleep apnea) | | | | [address] [place], | | (Primary Dx); | | | | [place] [address] | | Central sleep apnea; | | | | [phone] | | COPD exacerbation | | | [...] not cancer Colonoscopy 03/2010 Colonoscopy: 1995 at [facility] Social History: History Social History Marital Status: Single Spouse Name: N/A Number of Children: 1 Years of Education: 13 Occupational History [employer] Social History Main Topics Smoking status: [...] [place] | | | | | | [address] | | | | | | | | +--------+---------+ + + + | 11/24/ | Office | Cardiology | [place], | | | 2019 | Visit | | SINDHU Erickson [address] | | | | | | [address] [place], | | | | | | [place] [address] | | | | | | [phone] | | | | | | | [...]
--- OUTSIDE RECORDS SUMMARY | ~2019-01-15 | XMS | Encounter Summary ---
Demographics + + + | Address | [address] | | | [place] [address] | + + + | Home Phone [...] + +------+ + | Care Inside Sales Advertising Executive Name | Role | Phone | [...] sleep apnea) | | | | [address] [place] | [place] | (Primary Dx) | | | | [place] [address] | [address] | | | | | [phone] | | | +--------+---------+ + + + [...] machine. She has tried to get her Pricing Assistant to add the connection part for oxygen to her machine, but it has not happene d. Now she only uses her 3 per minute of supplemental oxygen at night and she has not been u sing her machine for the past few months. She was already on oxygen during the day for her COPD through her ingredient mixer. She says since she stopped using her [...] years before she was switched to bilevel [id number]. I reviewed the notes from Dr Chris Alarcon in [place], [place].It indicates that patient had CPAP intolerance [...] Daily. Yes Historical ProviderYinka Respiratory Therapy Supplies [facility] Please provide patient with necessary CPAP supplies (she did not specify, okay to send order as appropriate) Diagnosis Code(s)327.23 . Length of Need 99 months. Please send order to [facility]. 01/13/13 Yes Loreta London MD Respiratory Therapy Supplies [facility] Change CPAP back to 11-14 cm H2O. All necessary supplies. No oxygen bleed in. Diagnosis Code(s)327.23. Length of Need: Lifetime. Please send order to [facility]. This is [...] was performed on 04/17/15( Dr. Alarcon in [place], [place]) indicated that . Bilevel-ST was prescribed [...] evidence for hypoventilation. Date, I personally called [facility] and discussed this with one of the staff. If the machine c ould be set up on bilevel-S this should be done(today, I tried to check it but after about 1 0 minutes the machine still was reading the card, and I wonder if it functions properly). Ot herwise, the machine should be replaced with a bilevel-S machine. A staff from [facility] is to c all me tomorrow and [...] this chart may have been created with 3KeyIt voice recognition software. Occasi onal wrong-word or [...] | | | | [place] | | | | | | [id number] | | | | | | | | +--------+---------+ + + + | 11/24/ | Office | Cardiology | [place], | | | 2019 | Visit | | GeorginaSINDHU reynoso [address] | | | | | | [place], | | | | | | [place] [address] | | | | | | [phone] | | | | | | | | +--------+---------+ + + + documented as of this encounter Visit Diagnoses + + | Diagnosis | + + | GARRY (obstructive sleep apnea) - Primary Obstructive sleep apnea (adult) (pediatric) | + + documented in this encounter
--- OUTSIDE RECORDS SUMMARY | ~2019-01-15 | XMS | Encounter Summary ---
Demographics + + + | Address | [address] | | | [place] [address] | + + + | Home Phone [...] Team Providers + +------+ + | Care Prosthetic Lab Technician Name | Role | Phone | + +------+ + PCP | Unavailable | + +------+ + Encounter Details +--------+ + + + + | Date | Type | Department | Care Team | Description | +--------+ + + + + | 10/19/ | [facility] | [facility] | | | | 2008 | Encounter | MED CTR LABORATORY | | | | | | [address] [place] | | | | | | [place] | | | | | | [address] | | | | | | [phone] | | | +--------+ + + + [...] [place] | | | | | | [address] | | | | | | | | +--------+---------+ + + + | 11/24/ | Office | Cardiology | [place], | | | 2020 | Visit | | SINDHU Erickson [address] | | | | | | [place], | | | | | | [place] [address] | | | | | | [phone] | | | | | | | | +--------+---------+ + + + documented as of this encounter Visit Diagnoses Not on filedocumented in this encounter"
--- OUTSIDE RECORDS SUMMARY | ~2019-01-15 | XMS | Encounter Summary ---
Demographics + + + | Address | [address] | | | [place] [address] | + + + | Home Phone [...] Team Providers + +------+ + | Care Trauma Nurse Name | Role | Phone | [...] Cert [place] | | | | | [place], | | | | | | [place] [address] | | | | | | [phone] | | | +--------+ + + + [...] [place] | | | | | | [address] | | | | | | | | +--------+---------+ + + + | 11/24/ | Office | Cardiology | [place], | | | 2019 | Visit | | SINDHU Erickson [address] | | | | | | [place], | | | | | | [place] [address] | | | | | | [phone] | | | | | | | | +--------+---------+ + + + documented as of this encounter Visit Diagnoses Not on filedocumented in this encounter"
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
--- OUTSIDE RECORDS SUMMARY | ~2019-01-15 | XMS | Encounter Summary ---
Demographics + + + | Address | [address] | | | [place] [address] | + + + | Home Phone [...] Team Providers + +------+ + | Care Linotyper Name | Role | Phone | + [...] + + | 09/13/ | Emergency | [facility] | lAexi Guaman, | Tachycardia (Primary | | 2018 | | MED CTR EMERGENCY | MD [address] | Dx); Hypokalemia | | | | CENTER [address] | [place] | | | | | [place] | [address] | | | | | [address] | | | | | | [phone] | | | +--------+ + + + [...] sent through Care Everywhere.Hypokalemia (En glish)Tachycardia, Understanding (Swedish)documented in this encounter Medications at Time of [...] | | | | | | [place] [address] | | | | | | [phone] | | | | | | | [...] W?MRN: | | | | | | [id number] | | | [id number] | | | his | | | [...] [address] | [place] | [phone] | | [facility] | | [address] | | | - LABORATORY | | [...] | | | | | | [employer] | | | | | [...] [address] | [place] | [phone] | | [facility] | | [address] | | | - LABORATORY | | [...] (L) | 7 - 18 mg/dL | [place] | | | | | | [facility] | | | | | | MEDICAL | | | | | | CENTER - | | | | | | LABORATORY | | + + + + + + | Creatinine | 0.77 | 0.60 - 1.30 | [place] | | | | | mg/dL | [facility] | | | | | | MEDICAL | | | | | | CENTER - | | | | | | LABORATORY | | + + + + + + | eGFR if not | >60Comment: GLOMERULAR | >=60 | [place] | | | | FILTRATION | mL/min/1.73m2 | [facility] | | | [place] | RATE,ESTIMATED | | MEDICAL | | | | mL/min/1.14w4Tcwc than | | CENTER - | | [...] + | [facility] | [address] | [place] | [phone] | | [facility] | | [address] | | | - LABORATORY | | [...] + | [facility] | [address] | [place] | [phone] | | [facility] | | [address] | | | - LABORATORY | | [...] short | | | | | | [place] though P waves are | | | [...] | | | | RAFA WELLS MD ([id number]) | | | | | | on [...]
--- OUTSIDE RECORDS SUMMARY | ~2019-01-15 | XMS | Encounter Summary ---
Demographics + + + | Address | [address] | | | [place] [address] | + + + | Home Phone [...] Providers + +------+ + | Care Diamond Setter Name | Role | Phone | + +------+ + PCP | Unavailable | + +------+ + Encounter Details +--------+ + + + + | Date | Type | Department | Care Team | Description | +--------+ + + + + | 06/26/ | [facility] | [facility] | | | | 2009 - | Encounter | MED CTR OP REHAB | | | | | | [address] | | | | 07/24/ | | [place] [address] | | | | 2009 | | [phone] | | | +--------+ + + + [...] [place] | | | | | | [address] | | | | | | | | +--------+---------+ + + + | 11/24/ | Office | Cardiology | [place], | | | 2020 | Visit | | SINDHU Erickson [address] | | | | | | [place], | | | | | | [place] [address] | | | | | | [phone] | | | | | | | | +--------+---------+ + + + documented as of this encounter Visit Diagnoses Not on filedocumented in this encounter"
--- OUTSIDE RECORDS SUMMARY | ~2019-01-15 | XMS | Clinical Summary ---
Demographics + + + | Address | [address] | | | [place] [address] | + + + | Home Phone [...] Providers + +------+ + | Care Crane Helper Name | Role | Phone | [...] | | | | send order [facility] | [facility] | | | | | | [...] Please send | | | order to [facility] | | | Reported on | [...] + + + + + | Overview: [facility] 04/12/2010 Diverticulosis | | | | Next Colonoscopy | | | | Mammo | | | | Pap | | | | | + + + + + | Healthcare maintenance | 02/27/2012 | + + + + + | Overview: [facility]: 04/12/2010 Diverticulosis | + + + [...] + +---+ + + | Overview: LAUREANOU [id number] Decision | + + + +---+ | [...] [place] | | | | | | [id number] | | | | | | | | +--------+---------+ + + + | 11/24/ | Office | Cardiology | [place], | | | 2019 | Visit | | SINDHU Erickson [address] | | | | | | [place] | | | | | | [place] [address] | | | | | | [phone] | | | | | | | [...] CLAY | | | | | | ([id number]) on 12/23/2018 | | | | | [...] +--------+ +---------+--------+ | MEDICARE | MEDICA | [id number] | | [phone] | | Medica | [...] [place] | | | 5 (Home) | [address] | | | | | | [phone] | | | | | | | 4 (Work) | | + +--------+ +--------+ + + | Rosario Malik | Worker | Self | [birth year] | | [address] | | | s Comp | | 1965 | [phone] | [place] | | | | | | 1 ([place]) | [address] | | | | | | [phone] | | | | | | | 3 (Work) | | + +--------+ +--------+ + + Advance Directives + + + + + | Type | Date Recorded | Patient | Explanation | | | | Dragline Mechanic | | + + + + + | Power of | | | | | Strategic Marketing Associate | | | | + + + [...]
--- OUTSIDE RECORDS SUMMARY | ~2019-01-15 | XMS | Encounter Summary ---
Demographics + + + | Address | [address] | | | [place] [address] | + + + | Home Phone [...] Team Providers + +------+ + | Care Red Hat Open Stack Administrator Name | Role | Phone | [...] on | MED CTR THERAPY PT | HAT STEAMER [address] | | | | | OP [address] | [place], [place] | | | | | [place], [place] | [address] | | | | | [address] | [phone] | | | | | [phone] | | | +--------+ + + + [...] of this encounter Progress Notes Janey Low, HAT STEAMER - 05/18/2013 9:14 [facility] [address] [place] [address] Cancellation/No Show Date: 05/18/2013 Patient Information Patient [...] | | | | | | [place] [address] | | | | | | [phone] | | | | | | | | +--------+---------+ + + + documented as of this encounter Visit Diagnoses Not on filedocumented in this encounter"
--- OUTSIDE RECORDS SUMMARY | ~2019-01-15 | XMS | Encounter Summary ---
Demographics + + + | Address | [address] | | | [place] [address] | + + + | Home Phone [...] Providers + +------+ + | Care Seo Intern Name | Role | Phone | [...] Destinee ChirinosdrewChris | | | | | [phone] | [place] [address] | | +--------+ + + + + [...] [place] | | | | | | [address] | | | | | | | | +--------+---------+ + + + | 11/24/ | Office | Cardiology | [place], | | | 2019 | Visit | | SINDHU Erickson [address] | | | | | | [place], | | | | | | [place] [address] | | | | | | [phone] | | | | | | | [...]
--- OUTSIDE RECORDS SUMMARY | ~2019-01-15 | XMS | Encounter Summary ---
Demographics + + + | Address | [address] | | | [place] [address] | + + + | Home Phone [...] Providers + +------+ + | Care Manager Of Selection And Assessment Name | Role | Phone | + +------+ + | Juan Cherry DO | PCP | | + +------+ + Encounter Details +--------+ + + + + | Date | Type | Department | Care Team | Description | +--------+ + + + + | 08/20/ | Abstract | [facility] [place] | Jared Mcdonough, | | | 2013 | | CARDIOLOGY [address] | MD [address] [place] | | | | | [place], | [place], | | | | | [place] [address] | [place] [address] | | | | | [phone] | [phone] | | | | | | | [...] [place] | | | | | | [address] | | | | | | | | +--------+---------+ + + + | 11/24/ | Office | Cardiology | Flores, | | | 2019 | Visit | | SINDHU Erickson [address] | | | | | | [place], | | | | | | [place] [address] | | | | | | [phone] | | | | | | | [...] + | [facility] | [address] | [place], [place] | [phone] | | [facility] | | [address] | | | - LABORATORY | | | | + + + + + | [facility] | [address] | [place], [place] | | | [facility] | | [address] | | | - LABORATORY | | [...] | | | | | | [facility] | | | | | [facility] | | | | | | CENTER - | | | | | | LABORATORY | | + +---------+ + + + | BUN/Creatin | 9.8 | | [facility] | | | ine Ratio | | | SThCris CORONEL | | [...] | | [facility] | | [address] | | | - LABORATORY | | [...] | | | LAB | | | Georgian, | | | | | | External [...]
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
--- OUTSIDE RECORDS SUMMARY | ~2019-01-15 | XMS | Encounter Summary ---
Demographics + + + | Address | [address] | | | [place] [address] | + + + | Home Phone [...] Providers + +------+ + | Care Thread Winder Name | Role | Phone | [...] + | 11/12/ | Office | [facility] | [place], | Chest pain, | | 2018 | Visit | CARDIOLOGY [address] | SINDHU Erickson [address] | unspecified type | | | | [place], | [place], | (Primary Dx); | | | | [place] [address] | [place] [address] | Palpitations; | | | | [phone] | [phone] | Paroxysmal atrial | | | | [...] follow up in 6 to 8 wee or for office visit, or sooner with concerns. [...] takes this da rigoberto Respiratory Therapy Supplies [facility] Please provide patient with necessary CPAP supplies ( she did not specify, okay to send order as appropriate) Diagnosis Code(s)327.23 . Length of Need 99 months. Please send order to [facility]. 1 each 0 Respiratory Therapy Supplies [facility] Change CPAP back to 11-14 cm H2O. All necessary suppl ies. No oxygen bleed in. Diagnosis Code(s)327.23. Length of Need: Lifetime. Please send orde r to [facility]. This is [...] RESULTS reviewed during visit today primarily from [facility]: LIPID Lab Results Component Value Date [...] She is in class II of the [place] [employer] funct ional class. There are [...] this chart may have been created with [employer] voice recognition software. Occasi onal wrong-word or [...] [place] | | | | | | [address] | | | | | | | | +--------+---------+ + + + | 11/24/ | Office | Cardiology | [place], | | | 2019 | Visit | | SINDHU Erickson [address] | | | | | | [place], | | | | | | [place] [address] | | | | | | [phone] | | | | | | | [...] | | | | RUSSELL PAUL, RAFA ([id number]) | | | | | | on [...]
--- OUTSIDE RECORDS SUMMARY | ~2019-01-15 | XMS | Encounter Summary ---
Demographics + + + | Address | [address] | | | [place] [address] | + + + | Home Phone [...] Providers + +------+ + | Care Glass Belt Sander Name | Role | Phone | [...] 2013 | | [facility] EM[facility] | [place] [address] | exacerbation (HCC) | | | | [place] [address] | [facility] [place] | (Primary Dx) | | | | [place], [place] | [place] [address] | | | | | [address] | [phone] | | | | | [phone] | | | +--------+ + + + [...] | | | | | [facility]. | | | | | [...] [place] | | | | | | [address] | | | | | | | | +--------+---------+ + + + | 11/24/ | Office | Cardiology | [place], | | | 2019 | Visit | | SINDHU Erickson [address] | | | | | | [place], | | | | | | [place] [address] | | | | | | [phone] | | | | | | | [...] + | MISCELLANEOUS LAB | | | [phone] | + +---------+ + + | MISCELANIOUS LAB | | | [phone] | + +---------+ + + ED INFORMATION EXCHANGE (08/13/2013 8:38 PM PDT) + + | Specimen | + + | | + + + + + | Narrative | Performed At | + + + | VISIT TRACKING (3 MO.) Visit Date Location | [facility] | | Type Diagnoses | | | -------- | | | ---- 08/13/2013 20:37 [facility] | | | [facility] Emergency COPD Exasperation; | | | 07/18/2013 12:06 [facility] | | | Emergency Arm Laceration; | | | | | | Open wound of upper arm, without mention of complication; | | | | | | cut on Lft arm; 07/14/2013 00:15 | | | [facility] Emergency Shortness of | | | Breath; | | | Chronic obstructive | | | asthma with (acute) exacerbation; 06/19/2013 21:06 [facility] | | | [facility] Emergency Obstructive chronic | | | bronchitis with (acute) exacerbation; | | | | | | Shortness of Breath; | | | diff | | | breathing; 06/19/2013 11:03 [facility] | | | Emergency COPD exasperation; 05/23/2013 19:52 | | | [facility] Emergency Obstructive | | | chronic bronchitis with (acute) exacerbation; | | | | | | Obstructive chronic bronchitis with (acute) | | | exacerbation; | | | sob; | | | | | | Shortness of Breath; VISIT COUNT (1 | | | YR.) Visits Medicaid NE Dx Location ------ | | | --------- 12 0 | | | [facility] 12 0 | | | Total Note: Visits indicate total known visits. Medicaid | | | NE Dx are the number of primary diagnoses on the [facility]'s non-emergent dx | | | list. | [...]
--- OUTSIDE RECORDS SUMMARY | ~2019-01-15 | XMS | Encounter Summary ---
Demographics + + + | Address | [address] | | | [place] [address] | + + + | Home Phone [...] Providers + +------+ + | Care Shirt Creaser Name | Role | Phone | + [...] | 02/22/ | Office | [facility] [place] | [place], | COPD exacerbation | | 2012 | Visit | PULMONARY [address] | Loreta Alonso MD | ([facility]) (Primary Dx); | | | | [place], | | [place] (obstructive | | | | [place] [address] | | sleep apnea); | | | | [phone] | | Central sleep apnea; | | [...] MD [place] [facility] [address] [place], [address] [facility] Rosario Malik is a 48 y.o. 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 documented in [...] | | | [place] | | | | | | [address] | | | | | | | | +--------+---------+ + + + | 11/24/ | Office | Cardiology | [place], | | | 2019 | Visit | | SINDHU Erickson [address] | | | | | | [place], | | | | | | [place] [address] | | | | | | [phone] | | | | | | | [...]
--- OUTSIDE RECORDS SUMMARY | ~2019-01-15 | XMS | Encounter Summary ---
Demographics + + + | Address | [address] | | | [place] [address] | + + + | Home Phone [...] Team Providers + +------+ + | Care Figure Refinisher And Repairer Name | Role | Phone | + +------+ + | Jaun Cherry DO | PCP | | + +------+ + Encounter Details +--------+ + + + + | Date | Type | Department | Care Team | Description | +--------+ + + + + | 09/09/ | Hospital | [facility] | Conversion | Pain | | 2015 | Encounter | CONVERSION [address] | Transaction, | | | | | [address] | Provider Unknown | | | | | [place], [place] | [phone] | | | | | [address] | | | | | | [phone] | | | +--------+ + + + [...] | | | | | order to [facility]. | | | | | + [...] | | | | [place] [facility] | | | | | | [address] | | | | | | | | +--------+---------+ + + + | 11/24/ | Office | Cardiology | [place], | | | 2019 | Visit | | SINDHU Erickson [address] | | | | | | [place], | | | | | | [place] [address] | | | | | | [phone] | | | | | | | [...]
--- OUTSIDE RECORDS SUMMARY | ~2019-01-15 | XMS | Encounter Summary ---
Demographics + + + | Address | [address] | | | [place] [address] | + + + | Home Phone [...] Providers + +------+ + | Care Cover Inspector Name | Role | Phone | + +------+ + | Juan Cherry DO | PCP | | + +------+ + Encounter Details +--------+ + + + + | Date | Type | Department | Care Team | Description | +--------+ + + + + | 09/04/ | Orders Only | [facility] [place] | [place], | Paroxysmal atrial | | 2016 | | CARDIOLOGY [address] | Gerogina REHABILITATION COUNSELOR [address] | tachycardia (HCC) | | | | [place], | [place], | | | | | [place] [address] | [place] [address] | | | | | [phone] | [phone] | | | | | | | [...] [place] | | | | | | [address] | | | | | | | | +--------+---------+ + + + | 11/24/ | Office | Cardiology | Flores, | | | 2019 | Visit | | SINDHU Erickson [address] | | | | | | [place], | | | | | | [place] [address] | | | | | | [phone] | | | | | | | | +--------+---------+ + + + documented as of this encounter Visit Diagnoses + + | Diagnosis | + + | Paroxysmal atrial tachycardia (HCC) Paroxysmal supraventricular tachycardia | + + documented in this encounter"
--- OUTSIDE RECORDS SUMMARY | ~2019-01-15 | XMS | Encounter Summary ---
Demographics + + + | Address | [address] | | | [place] [address] | + + + | Home Phone [...] Team Providers + +------+ + | Care Aquarist Name | Role | Phone | + +------+ + | Juan Cherry DO | PCP | | + +------+ + Encounter Details +--------+ + + + + | Date | Type | Department | Care Team | Description | +--------+ + + + + | 02/26/ | Hospital | [facility] | Dio Yun | Dysphagia, | | 2017 | Encounter | MED CTR XRAY [address] | MD Jesus [address] | unspecified type | | | | [place] | [place] [address] | | | | | [place] [address] | [place], [place] | | | | | [phone] | [address] | | | | | | [phone] | | | | | | | [...] | | | | | | | [facility]. | | | | [...] | 0 | 10/13/19 | | | Kallqcfwgi-INBH-Cbug | mouth as needed. | | | 16 | 7 | | -Cod [phone] MG | | | | | | [...] | | | | | | [place] [address] | | | | | | [phone] | | | | | | | [...]
--- OUTSIDE RECORDS SUMMARY | ~2019-01-15 | XMS | Encounter Summary ---
Demographics + + + | Address | [address] | | | [place] [address] | + + + | Home Phone [...] Team Providers + +------+ + | Care Mail Manager Name | Role | Phone | + +------+ + PCP | Unavailable | + +------+ + Encounter Details +--------+ + + + + | Date | Type | Department | Care Team | Description | +--------+ + + + + | 02/08/ | Hospital | [facility] | Deniz Alexi Kim, | | | 2009 | Encounter | MED CTR EMERGENCY | [address] | | | | | MAKANDA [address] | [place] | | | | | [place] | [address] | | | | | [address] | | | | | | [phone] | | | +--------+ + + + [...] [place] | | | | | | [address] | | | | | | | | +--------+---------+ + + + | 11/24/ | Office | Cardiology | [place], | | | 2019 | Visit | | SINDHU Erickson [address] | | | | | | [place], | | | | | | [place] [address] | | | | | | [phone] | | | | | | | | +--------+---------+ + + + documented as of this encounter Visit Diagnoses Not on filedocumented in this encounter"
--- OUTSIDE RECORDS SUMMARY | ~2019-01-15 | XMS | Encounter Summary ---
Demographics + + + | Address | [address] | | | [place] [address] | + + + | Home Phone [...] Team Providers + +------+ + | Care Timber Sizer Name | Role | Phone | + +------+ + | Juan Cherry DO | PCP | | + +------+ + Encounter Details +--------+ + + + + | Date | Type | Department | Care Team | Description | +--------+ + + + + | 02/22/ | Hospital | [facility] | Ozzie Hayes | | | 2011 | Encounter | MED CTR EMERGENCY | MD Ran [address] | | | | | [place] [address] | [place] | | | | | [place], [place] | [place] [address] | | | | | [address] | [phone] | | | | | [phone] | | | +--------+ + + + [...] | | | | | | [place] [address] | | | | | | [phone] | | | | | | | [...] At | + + + | [facility] | [place] | | Department [address] [place] [address] | [facility] | | [ rep ct street[address]] [ rep ct [facility] | | st zip] Signed | - IMAGING | | | | | Patient Name: THEOPANFILOJADYN W | | | Physician: CHEVY : 1965 Age: 47 Sex: F Unit | | | #: [id number] Exam Date: 02/23/12 Location: | | | ER Report #: [id number] Page: | | | %(RAD)RES..mtdd.print.filter("pg") of %(RAD) | | | RES..mtdd.print.filter("tpg") | | | | | | Accession Number: [id number] | | | ENHANCED CT ABDOMEN AND [...] ER staff by the | | | [facility] radiologist on 02/23/2012 at 0741 hours. | | | Dictated Date/Time: 02/23/2012 12:00 Transcribed Date/Time: | | | 02/23/2012 12:15 Fourdrinier Tender: | | | <<Signature on File>> | | | Aditya Alonso | | | MD Claudio02/23/12 [id number] <Electronically signed by Aditya Snyder MD> | | | Aditya Snyder MD 02/23/12 1200 Fourdrinier Tender: | | | Sqor [employer] [id number]/30/12 1215 Ozzie Hayes MD | | | | | + + + + + + + + | Performing | Address | City/State/Zipcode | Phone Number | | Organization | | | | + + + + + | [facility] | [address] | [place] | [phone] | | [facility] | | [address] | | | - IMAGING | | [...] - 1.030 | [facility] | | | [place] | | | [facility] | | [...] + | [facility] | [address] | [place] | [phone] | | [facility] | | [address] | | | - LABORATORY | | | | + + + + + | [facility] | [address] | [place] | | | [facility] | | [address] | | | - LABORATORY | | [...] + | [facility] | [address] | [place] | [phone] | | [facility] | | [address] | | | - LABORATORY | | | | + + + + + | [facility] | [address] | [place], [place] | | | [facility] | | [address] | | | - LABORATORY | | [...] + | [facility] | [address] | [place], [place] | [phone] | | [facility] | | [address] | | | - LABORATORY | | | | + + + + + | [facility] | [address] | [place], [place] | | | [facility] | | [address] | | | - LABORATORY | | [...] + | [facility] | [address] | [place] | [phone] | | [facility] | | [address] | | | - LABORATORY | | | | + + + + + | [facility] | [address] | [place], [place] | | | [facility] | | [address] | | | - LABORATORY | | [...] + | [facility] | [address] | [place], [place] | [phone] | | [facility] | | [address] | | | - LABORATORY | | | | + + + + + | [facility] | [address] | [place], [place] | | | [facility] | | [address] | | | - LABORATORY | | | | + + + + + documented in this encounter Visit Diagnoses Not on filedocumented in this encounter
--- OUTSIDE RECORDS SUMMARY | ~2019-01-15 | XMS | Encounter Summary ---
Demographics + + + | Address | [address] | | | [place] [address] | + + + | Home Phone [...] + +------+ + | Care Motion Picture Camera Operator Name | Role | Phone [...] | | | | unspecified | | [address] | | | | | laterality | | Phone: | | | | | Primary | | [phone] | | | | | localized | | Fax: | | | | | osteoarthros | | [phone] | | | | | is of hand, | | | | | | | unspecified | | | | | | | laterality | | | | | | | [[id number] | | | | | | | Procedures | | | | | | | AR REPAIR | | | | | | [...] + + | 06/18/ | Hospital | [facility] | Jesus Brady | | | 2018 | Encounter | MED CTR OR INTRA OP | J, DO [address] | | | | | [address] | [place], [place] | | | | | [place], [place] | [address] | | | | | [address] | [phone] | | | | | [phone] | | | +--------+ + + + [...] what medicines and drugsyou take. This includes srex-mvz-lix nter medicines, herbs, supplements, alcohol or other [...] adam p you safe. Date Last Reviewed: 01/25/201619995568-6861 [employer]. [address] [place] [address], [place] [address]. All righ ts reserved. This information is not intended as a substitute for professional medical care. Always follow your healthcare professional's instructions. [facility] Post-op Instructions - Thumb Surgery The following instructions are meant to guide you following surgery until your first post-o perative visit 7-12 days later. For any problems or questions, please call our office at [phone], Friday through Friday, 9:00 am - 5:00 [...] that you may have received from the [facility] pital, advice from friends, family members, ecclesViking Therapeuticstical leaders, grocery store clerks, fox lee, Anu, Dr. Jain, Dr. Oz, sports heroes, etc. If unsure, please call our office. Thank you, Jesus Brady D.O. [facility] [address] [place] [address] Your post op appointment is scheduled for Friday06/29/18 at 9:15am. Please check in at 8:45 am for X-rays at the [facility]. documented in this encounter Medications at [...] | | | | order to [facility]. | | | | | + [...] | | | | [place] | | | | | | [address] | | | | | | | | +--------+---------+ + + + | 11/24/ | Office | Cardiology | [place], | | | 2020 | Visit | | SINDHU Erickson [address] | | | | | | [place], | | | | | | [place] [address] | | | | | | [phone] | | | | | | | [...] [address] | [place] | [phone] | | [facility] | | [address] | | | - LABORATORY | | [...] ONCE PRN, Wheezing, | | | Starting [facility] 06/18/18 at 1306, | | | For 1 dose, RT will administer., | | | Pre-op | | + +---+ | | | + +---+ | albuterol 2.5 mg/3 mL nebulizer | | | solution 2.5 mg 2.5 mg, | | | Nebulization, ONCE PRN, Wheezing, | | | Starting [facility] 06/18/18 at 1542, | | | [...]
--- OUTSIDE RECORDS SUMMARY | ~2019-01-15 | XMS | Encounter Summary ---
Demographics + + + | Address | [address] | | | [place] [address] | + + + | Home Phone [...] Team Providers + +------+ + | Care Lurer Name | Role | Phone | + +------+ + | Juan Cherry DO | PCP | | + +------+ + Encounter Details +--------+ + + + + | Date | Type | Department | Care Team | Description | +--------+ + + + + | 08/30/ | Hospital | [facility] | Yecenia Gallegos | | | 2012 | Encounter | MED CTR EMERGENCY | Yinka Aguirre MD [address] | | | | | CENTER [address] | [facility] | | | | | [place], [place] | [place] [address] | | | | | [address] | [phone] | | | | | [phone] | | | +--------+ + + + [...] [place] | | | | | | [address] | | | | | | | | +--------+---------+ + + + | 11/24/ | Office | Cardiology | [place], | | | 2019 | Visit | | SINDHU Erickson [address] | | | | | | [place], | | | | | | [place] [address] | | | | | | [phone] | | | | | | | | +--------+---------+ + + + documented as of this encounter Visit Diagnoses Not on filedocumented in this encounter"
--- OUTSIDE RECORDS SUMMARY | ~2019-01-15 | XMS | Encounter Summary ---
Demographics + + + | Address | [address] | | | [place] [address] | + + + | Home Phone [...] Team Providers + +------+ + | Care Vocational Auto Body Instructor Name | Role | Phone | + +------+ + PCP | Unavailable | + +------+ + Encounter Details +--------+ + + + + | Date | Type | Department | Care Team | Description | +--------+ + + + + | 02/08/ | Hospital | [facility] | Deniz Alexi Kim, | | | 2009 | Encounter | MED CTR EMERGENCY | [address] | | | | | [place] [address] | [place] | | | | | [place] | [address] | | | | | [address] | | | | | | [phone] | | | +--------+ + + + [...] [place] | | | | | | [address] | | | | | | | | +--------+---------+ + + + | 11/24/ | Office | Cardiology | [place], | | | 2019 | Visit | | SINDHU Erickson [address] | | | | | | [place], | | | | | | [place] [address] | | | | | | [phone] | | | | | | | | +--------+---------+ + + + documented as of this encounter Visit Diagnoses Not on filedocumented in this encounter"
--- OUTSIDE RECORDS SUMMARY | ~2019-01-15 | XMS | Encounter Summary ---
Demographics + + + | Address | [address] | | | [place] [address] | + + + | Home Phone [...] Providers + +------+ + | Care Retail Loan Originator Assistant Name | Role | Phone | [...] | | | | CENTER [address] | [address] [place] | encounter (Primary | | | | [place], [place] | [place] [address] | Dx); Fall at home, | | | | [address] | [phone] | initial encounter; | | | | [phone] | | Contusion of left | | [...] be sent through Care Everywhere.CONCUSSION, AFT ER (SENEGALESE)FRACTURE, NOSE, WITH X-RAY (SENEGALESE)documented in this encounter Medications at Time of [...] | 0 | 10/13/19 | | | Tkjtjygcoe-VOBO-Yaiu | mouth as needed. | | | 16 | 7 | | -Cod [id number] MG | | | | | | [...] | | | | | | [place] [address] | | | | | | [phone] | | | | | | | [...] CT Maxillofacial wo Contrast (03/24/2016 10:54 AM [facility]) + + | Specimen | + + [...]
--- OUTSIDE RECORDS SUMMARY | ~2019-01-15 | XMS | Encounter Summary ---
Demographics + + + | Address | [address] | | | [place] [address] | + + + | Home Phone [...] Team Providers + +------+ + | Care Labeling Associate Name | Role | Phone | [...] + + | 09/17/ | Office | [facility] | Ashlee Allison, | Palpitations | | 2018 | Visit | CARDIOLOGY [address] | REGISTRATION CLERK [address] | (Primary Dx); | | | | [place], | [facility] [place] | Paroxysmal atrial | | | | [place] [address] | [address] | tachycardia (HCC); | | | | [phone] | | Hypotension due to | | [...] was again seen in emergency department at [facility] on 08/30/17 for tachycardia, ECG showing sinus tachycardia with rate of 110 beats per minute, no acute f indings, her potassium was found to be low at 3.1, and blood pressure was high 144/111 mmHg, she was given one replacement dose of potassium, and had 48 hour Holter placed. She was aga in seen in emergency department at [facility] on 09/13/17 for tachyca rdia, with ECG [...] Lifetime. Please send orde r to [facility]. This is not a new order, [...] adversely affected Probable Sinus tachycardia with short CA though P waves are difficult to identify due to p oor quality of tracing PAC's Possible Inferior infarct , age undetermined Nonspecific ST and T wave abnormality :cannot exclude ischemia Abnormal ECG When compared with ECG of 30-AUG-2017 11:40, premature supraventricular complexes are no longer present CA interval has decreased Possible Inferior infarct is now present Confirmed by RUSSELL PAUL, RAFA ([id number]) on 09/14/2017 9:47:53 AM LAB RESULTS reviewed during visit today primarily from [facility]: LIPID Lab Results Component Value [...] BNP 22 08/14/2017 I reviewed records from [facility] for emergency department visit o n 08/14/17, 08/30/17, and 09/13/17 which is summarized in the HPI. IMAGING- I reviewed reports from [facility]: Xr Chest Ap Portable Result Date: 09/13/2017 [...] and v entricular function done at the [facility]. LVEF 78%. C. Holter Monitor 08/16/13 Underlying [...] She was seen at the ED of [facility] 3 weeks ago and again 1 week [...] this chart may have been created with O[employer] voice recognition software. Occasi onal wrong-word or [...] [place] | | | | | | [address] | | | | | | | | +--------+---------+ + + + | 11/24/ | Office | Cardiology | [place], | | | 2019 | Visit | | SINDHU Erickson [address] | | | | | | [place], | | | | | | [place] [address] | | | | | | [phone] | | | | | | | [...] [address] | [place] | [phone] | | [facility] | | [address] | | | - LABORATORY | | [...] | 0.79 | 0.60 - 1.30 | [facility] | | | | | mg/dL [...] | | MEDICAL | | | | mL/min/1.95q1Mfdj than | | CENTER - | | [...] [address] | [place] | [phone] | | [facility] | | [address] | | | - LABORATORY | | [...]
--- OUTSIDE RECORDS SUMMARY | ~2019-01-15 | XMS | Encounter Summary ---
Demographics + + + | Address | [address] | | | [place] [address] | + + + | Home Phone [...] Team Providers + +------+ + | Care Lehr Cutter Name | Role | Phone | [...] | | | | unspecified | | [address] | | | | | laterality | | Phone: | | | | | Primary | | [phone] | | | | | localized | | Fax: | | | | | osteoarthros | | [phone] | | | | | is of [...] | | | | | [address] | [address] [place] | | | | | [place], [place] | [place] [address] | | | | | [address] | [phone] | | | | | [phone] | | | +--------+ + + + [...] +----+---+ + + | | 1 | [place] | | | | 4 | 43-degrees [...] [address] | | eral | Forearm; tlcn-apy-huzhjz catheter | Teresa Yuan, | Daniela Caro [...] | | | Jose R [facility] [place] | | | | | | [address] | | | | | | | | +--------+---------+ + + + | 11/24/ | Office | Cardiology | [place], | | | 2019 | Visit | | SINDHU Erickson [address] | | | | | | [place], | | | | | | [place] [address] | | | | | | [phone] | | | | | | | [...] | | | | | | Starting [facility] 06/18/18 at 1448, For | | | [...] mcg/kg/m | mL/hr | | | Starting [facility] 06/18/18 at 1455, | | PM PDT [...]
--- OUTSIDE RECORDS SUMMARY | ~2019-01-15 | XMS | Encounter Summary ---
Demographics + + + | Address | [address] | | | [place] [address] | + + + | Home Phone [...] Provider Unknown | | | | | [place], [place] | [phone] | | | | | [address] | | | | | | [phone] | | | +--------+ + + + [...] | | | | send order to [facility] | | | | [...] | [address] R [facility] [place] | | | | | | [address] | | | | | | | | +--------+---------+ + + + | 11/24/ | Office | Cardiology | [place], | | | 2019 | Visit | | SINDHU Erickson [address] | | | | | | [place], | | | | | | [place] [address] | | | | | | [phone] | | | | | | | [...]
--- OUTSIDE RECORDS SUMMARY | ~2019-01-15 | XMS | Encounter Summary ---
Demographics + + + | Address | [address] | | | [place] [address] | + + + | Home Phone [...] Providers + +------+ + | Care Laboratory Scientist Name | Role | Phone | [...] | | | | | pulmonary | [address] | [address] | | | | | disease, | [place], | [place], [place] | | | | | unspecified | [place] [address] | [address] | | | | | COPD type | Phone: | Phone: | | | | | ([facility]) | [phone] | [phone] | | | | | | Fax: | Fax: | | | | | | [phone] | [phone] | +--------+ + + + + + Encounter Details +--------+ + + + + | Date | Type | Department | Care Team | Description | +--------+ + + + + | 02/03/ | Orders Only | [facility] [place] | Jared Mcdonough, | Chronic obstructive | | 2015 | | CARDIOLOGY [address] | [address] | pulmonary disease, | | | | [address] [place], | [place], | unspecified COPD | | | | [place] [address] | [place] [address] | type (HCC) (Primary | | | | [phone] | [phone] | Dx) | | | | | [...] [place] | | | | | | [address] | | | | | | | | +--------+---------+ + + + | 11/24/ | Office | Cardiology | [place], | | | 2019 | Visit | | SINDHU Erickson [address] | | | | | | [place], | | | | | | [place] [address] | | | | | | [phone] | | | | | | | | +--------+---------+ + + + + + +--------+ + + | Name | Type | Priori | Associated Diagnoses | Order Schedule | | | | ty | | | + + +--------+ + + | AMB REFERRAL TO [facility] | Outpatient | Routin | Chronic | [...]
--- OUTSIDE RECORDS SUMMARY | ~2019-01-15 | XMS | Encounter Summary ---
Demographics + + + | Address | [address] | | | [place] [address] | + + + | Home Phone [...] Providers + +------+ + | Care Director Prospect Name | Role | Phone | + +------+ + | Juan Cherry DO | PCP | | + +------+ + Encounter Details +--------+ + + + + | Date | Type | Department | Care Team | Description | +--------+ + + + + | 07/19/ | Orders Only | [facility] [place] | Marilyn sOborne, | | | 2014 | | PULMONARY [address] | RN | | | | | [place], | | | | | | [place] [address] | | | | | | [phone] | | | +--------+ + + + [...] [place] | | | | | | [address] | | | | | | | | +--------+---------+ + + + | 11/24/ | Office | Cardiology | [place], | | | 2019 | Visit | | SINDHU Erickson [address] | | | | | | [place], | | | | | | [place] [address] | | | | | | [phone] | | | | | | | | +--------+---------+ + + + documented as of this encounter Visit Diagnoses Not on filedocumented in this encounter"
--- OUTSIDE RECORDS SUMMARY | ~2019-01-15 | XMS | Encounter Summary ---
Demographics + + + | Address | [address] | | | [place] [address] | + + + | Home Phone [...] Providers + +------+ + | Care Cloth Examiner Hand Name | Role | Phone | [...] | | | | unspecified | | [address] | | | | | laterality | | Phone: | | | | | Primary | | [phone] | | | | | localized | | Fax: | | | | | osteoarthros | | [phone] | | | | | is of [...] tendon | | | | [address] | [address] [place], [place] | interposition | | | | [place], [place] | [address] | | | | | [address] | [phone] | | | | | [phone] | | | +--------+---------+ + + + [...] what medicines and drugsyou take. This includes guiv-bqs-pmf nter medicines, herbs, supplements, alcohol or other [...] adam p you safe. Date Last Reviewed: 01/25/201619992349-9129 [employer]. [address] [place] [address]. All righ ts reserved. This information is not intended as a substitute for professional medical care. Always follow your healthcare professional's instructions. [facility] Post-op Instructions - Thumb Surgery The following instructions are meant to guide you following surgery until your first post-o perative visit 7-12 days later. For any problems or questions, please call our office at [phone], Friday through Friday, 9:00 am - 5:00 [...] that you may have received from the [facility], advice from friends, family members, ecclesiastical leaders, grocery store clerks, fox lee, Anu, Dr. Jain, Dr. Weinstein, sports heroes, etc. If unsure, please call our office. Thank you, Jesus Brady D.O. [facility] [address] [place] [address] Your post op appointment is scheduled for [...] | | | | order to [facility]. | | | | | + [...] [place] | | | | | | [address] | | | | | | | | +--------+---------+ + + + | 11/24/ | Office | Cardiology | [place], | | | 2019 | Visit | | SINDHU Erickson [address] | | | | | | [place], | | | | | | [place] [address] | | | | | | [phone] | | | | | | | [...] Kobe Lenzt MD | | Electronically signed: 06/18/2018 4:31 [...] [address] | [place] | [phone] | | [facility] | | [address] | | | - LABORATORY | | [...]
--- OUTSIDE RECORDS SUMMARY | ~2019-01-15 | XMS | Encounter Summary ---
Demographics + + + | Address | [address] | | | [place] [address] | + + + | Home Phone [...] Team Providers + +------+ + | Care Quarry Plug And Feather Driller Name | Role | Phone | [...] + + | 07/14/ | Emergency | [facility] | Ozzie Hayes | Acute exacerbation | | 2013 | | MED CTR EMERGENCY | MD Ran [address] | of COPD with asthma | | | | [place] [address] | [facility] | ([facility]) (Primary Dx) | | | | [place], [place] | [place] [address] | | | | | [address] | [phone] | | | | | [phone] | | | +--------+ + + + [...] [place] | | | | | | [address] | | | | | | | | +--------+---------+ + + + | 11/24/ | Office | Cardiology | [place], | | | 2019 | Visit | | SINDHU Erickson [address] | | | | | | [place], | | | | | | [place] [address] | | | | | | [phone] | | | | | | | [...] | 0.76 | 0.60 - 1.30 | [facility] | | | | | mg/dL [...] mL/min/1.73m2 | [facility] | | | GUY[place]ESE | RATE,ESTIMATED | | MEDICAL | | | | mL/min/1.98e7Waaf than | | CENTER - | | [...] + | [facility] | [address] | [place] | [phone] | | [facility] | | [address] | | | - LABORATORY | | | | + + + + + | [facility] | [address] | [place], [place] | | | [facility] | | [address] | | | - LABORATORY | | [...] + + | Performing | Address | City/[facility] | Phone Number | | Organization | | | | + + + + + | [facility] | [address] | [place] | [phone] | | [facility] | | [address] | | | - LABORATORY | | | | + + + + + | [facility] | [address] | [place] | | | [facility] | | [address] | | | - LABORATORY | | [...] + | MISCELLANEOUS LAB | | | [phone] | + +---------+ + + | MISCELANIOUS LAB | | | [phone] | + +---------+ + + ED INFORMATION EXCHANGE (07/14/2013 12:20 AM PDT) + + | Specimen | + + | | + + + + + | Narrative | Performed At | + + + | VISIT TRACKING (3 MO.) Visit Date Location | [facility] | | Type Diagnoses | | | -------- | | | ---- 07/14/2013 00:15 [place] | | | [facility] Emergency Shortness of Breath; | | | 06/19/2013 21:06 [facility] | | | Emergency Obstructive chronic bronchitis with (acute) | | | exacerbation; | | | Shortness of | | | Breath; | | | diff breathing; | | | 06/19/2013 11:03 [facility] | | | Emergency COPD exasperation; 05/23/2013 19:52 [facility] | | | [facility] Emergency Obstructive chronic | | | bronchitis with (acute) exacerbation; | | | | | | Obstructive chronic bronchitis with (acute) exacerbation; | | | | | | sob; | | | | | | Shortness of Breath; VISIT COUNT (1 YR.) Visits | | | Medicaid NE Dx Location ------ | | | --------- 10 0 [facility] | | | [facility] 10 0 Total | | | Note: Visits indicate total known visits. Medicaid NE Dx are the | | | number of primary diagnoses on the [facility]'s non-emergent dx list. | | | | [...]
--- OUTSIDE RECORDS SUMMARY | ~2019-01-15 | XMS | Encounter Summary ---
Demographics + + + | Address | [address] | | | [place] [address] | + + + | Home Phone [...] Providers + +------+ + | Care Fuel Conversion Technician Name | Role | Phone | [...] + + | 07/24/ | Clinical | [facility] | Andriy Weber | Bladder pain | | 2018 | Support | [address] | [address] | (Primary Dx) | | | | [place], [place] | [facility] | | | | | [address] | [place] [address] | | | | | [phone] | [phone] | | | | | | | [...] and Dr. Weber's order. Patient remained in [facility] office for 20 minutes prior to [...] [place] | | | | | | [id number] | | | | | | | | +--------+---------+ + + + | 11/24/ | Office | Cardiology | [place], | | | 2019 | Visit | | Georgina, DEPUTY FIRE MARSHAL [address] | | | | | | [place], | | | | | | [place] [address] | | | | | | [phone] | | | | | | | [...]
--- OUTSIDE RECORDS SUMMARY | ~2019-01-15 | XMS | Encounter Summary ---
Demographics + + + | Address | [address] | | | [place] [address] | + + + | Home Phone [...] Team Providers + +------+ + | Care Collector Of Aquarium Specimens Name | Role | Phone | + [...] + | 06/25/ | Clinical | [facility] | Andriy Weber | Bladder pain | | 2018 | Support | [address] | [address] | (Primary Dx) | | | | [place], [place] | [facility] | | | | | [address] | [place] [address] | | | | | [phone] | [phone] | | | | | | | [...] Units Admin Date 06/25/2017 Action Given Dose [id number] Units Route Irrigation Administered By Loraine Hawkins [...] [place] | | | | | | [address] | | | | | | | | +--------+---------+ + + + | 11/24/ | Office | Cardiology | [place], | | | 2019 | Visit | | SINDHU Erickson [address] | | | | | | [place], | | | | | | [place] [address] | | | | | | [phone] | | | | | | | [...]
--- OUTSIDE RECORDS SUMMARY | ~2019-01-15 | XMS | Encounter Summary ---
Demographics + + + | Address | [address] | | | [place] [address] | + + + | Home Phone [...] Providers + +------+ + | Care Automobile Carpets Molder Name | Role | Phone | [...] + + | 05/28/ | Office | [facility] | Kade oHffman MD | COPD exacerbation | | 2013 | Visit | CARE [address] | [address] | ([facility]) (Primary Dx) | | | | [place] | [place] | | | | | [address] | [id number] | | | | | [phone] | | | +--------+---------+ + + + [...] prednisone, add zithromax FU 3 days with bottle house pumper. documented in this enc ounter Plan of [...] [place] | | | | | | [address] | | | | | | | | +--------+---------+ + + + | 11/24/ | Office | Cardiology | [place], | | | 2019 | Visit | | SINDHU Erickson [address] | | | | | | [place], | | | | | | [place] [address] | | | | | | [phone] | | | | | | | | +--------+---------+ + + + documented as of this encounter Visit Diagnoses + + | Diagnosis | + + | COPD exacerbation (HCC) - Primary Obstructive chronic bronchitis with exacerbation | + + documented in this encounter
--- OUTSIDE RECORDS SUMMARY | ~2019-01-15 | XMS | Encounter Summary ---
Demographics + + + | Address | [address] | | | [place] [address] | + + + | Home Phone [...] Providers + +------+ + | Care Supervisor Evaporator Name | Role | Phone | + +------+ + | Ozzy Delcid MD | PCP | | + +------+ + Encounter Details +--------+ + + + + | Date | Type | Department | Care Team | Description | +--------+ + + + + | 10/14/ | Hospital | [facility] | Off[place], | | | 2011 | Encounter | MED CTR SLEEP | Loreta Alonso MD | | | | | CENTER [address] | | | | | | [place] | | | | | | [address] | | | | | | [phone] | | | +--------+ + + + [...] [place] | | | | | | [address] | | | | | | | | +--------+---------+ + + + | 11/24/ | Office | Cardiology | [place], | | | 2019 | Visit | | SINDHU Erickson [address] | | | | | | [place], | | | | | | [place] [address] | | | | | | [phone] | | | | | | | | +--------+---------+ + + + documented as of this encounter Visit Diagnoses Not on filedocumented in this encounter"
--- OUTSIDE RECORDS SUMMARY | ~2019-01-15 | XMS | Encounter Summary ---
Demographics + + + | Address | [address] | | | [place] [address] | + + + | Home Phone [...] Providers + +------+ + | Care Engineer Systems Name | Role | Phone | + [...] [address] | | | | | [place], | [place], | | | | | [place] [address] | [place] [address] | | | | | [phone] | [phone] | | | | | | | [...] | | | | | | [place] [address] | | | | | | [phone] | | | | | | | | +--------+---------+ + + + documented as of this encounter Visit Diagnoses Not on filedocumented in this encounter"
--- OUTSIDE RECORDS SUMMARY | ~2019-01-15 | XMS | Encounter Summary ---
Demographics + + + | Address | [address] | | | [place] [address] | + + + | Home Phone [...] Providers + +------+ + | Care Night Assistant Name | Role | Phone | [...] | | | | | [place] | [facility] [facility] | | | | | [address] | [place] [address] | | | | | [phone] | [phone] | | | | | | | [...] [place] | | | | | | [address] | | | | | | | | +--------+---------+ + + + | 11/24/ | Office | Cardiology | [place], | | | 2019 | Visit | | SINDHU Erickson [address] | | | | | | [place], | | | | | | [place] [address] | | | | | | [phone] | | | | | | | | +--------+---------+ + + + documented as of this encounter Visit Diagnoses Not on filedocumented in this encounter"
--- OUTSIDE RECORDS SUMMARY | ~2019-01-15 | XMS | Encounter Summary ---
Demographics + + + | Address | [address] | | | [place] [address] | + + + | Home Phone [...] Providers + +------+ + | Care Medical Lab Assistant Name | Role | Phone | + +------+ + | Juan Cherry DO | PCP | | + +------+ + Encounter Details +--------+ + + + + | Date | Type | Department | Care Team | Description | +--------+ + + + + | 04/02/ | Hospital | [facility] | Dio Yun | | | 2017 | Encounter | MED CTR NUCLEAR | MD [address] | | | | | MEDICINE [address] | [place] | | | | | [place], | [place], [place] | | | | | [place] [address] | [address] | | | | | [phone] | [phone] | | | | | | | [...] | | | | | | | [facility]. | | | | | [...] | 0 | 10/13/19 | | | Hibzhdnsme-NECV-Cgpp | mouth as needed. | | | 16 | 7 | | -Cod [id number] MG | | | | | | [...] | 2019 | Visit | | SINDHU Ericskon [address] | | | | | | [place], | | | | | | [place] [address] | | | | | | [phone] | | | | | | | [...] + + | Performing | Address | City/State[facility] | Phone Number | | Organization | | | | + +---------+ + + | [facility] | | | | + +---------+ + + documented in this encounter Visit Diagnoses Not on filedocumented in this encounter
--- OUTSIDE RECORDS SUMMARY | ~2019-01-15 | XMS | Encounter Summary ---
Demographics + + + | Address | [address] | | | [place] [address] | + + + | Home Phone [...] Team Providers + +------+ + | Care Grinding Wheel Inspector Name | Role | Phone | + +------+ + | Juan Cherry DO | PCP | | + +------+ + Encounter Details +--------+---------+ + + + | Date | Type | Department | Care Team | Description | +--------+---------+ + + + | 08/17/ | Office | [facility] | Meghan Garcia MD | GARRY (obstructive | | 2018 | Visit | SLEEP DISORDER [address] | [address] | sleep apnea) | | | | [address] [place] | [place] | (Primary Dx); C[place] | | | | [place] [address] | [address] | (central sleep | | | | 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 We performed a CPAP titration study on [...] time spent below SpO2 of 90% was0%.Transcutaneous LY7ffslrx 35-37mmHg during supine wake,a nd remained between [...] higher. Patient continued to have awakenings at [facility], and also excessive daytime sleepiness. Though one [...] breaths does not meet criteria for an speech/language therapist ea or hypopnea. REVELANT MEDICATIONS: Gabapentin, prednisone, tramadol, Ziprasidone. SUBJECTIVE: The patient rated sleep quality during sleep study as usual. Patient Scheduler note: Patient continues to struggle with mask [...] Leak. I s ent a prescription to [facility] for nasal mask and chin strap. I also discussed the impact of the sleep deprivation on her health, and excessive daytime s leepiness. She has minimal physical activity. She does some chores, and then she watches [employer] or is on her computer from 3 [...] book, or do some g uided meditation ([employer]) in part of her living room that [...] [place] | | | | | | [address] | | | | | | | | +--------+---------+ + + + | 11/24/ | Office | Cardiology | [place], | | | 2019 | Visit | | SINDHU Erickson [address] | | | | | | [place], | | | | | | [place] [address] | | | | | | [phone] | | | | | | | [...]
--- OUTSIDE RECORDS SUMMARY | ~2019-01-15 | XMS | Encounter Summary ---
Demographics + + + | Address | [address] | | | [place] [address] | + + + | Home Phone [...] Team Providers + +------+ + | Care Degreasing Solution Mixer Name | Role | Phone | + +------+ + PCP | Unavailable | + +------+ + Encounter Details +--------+ + + + + | Date | Type | Department | Care Team | Description | +--------+ + + + + | 10/17/ | Hospital | [facility] | Kevin Worthy | | | 2010 | Encounter | MED CTR MP INTRA OP | MD Ginny [address] | | | | | [address] | [address] [place], [place] | | | | | [place], [place] | [address] | | | | | [address] | | | | | | [phone] | | | +--------+ + + + [...] [place] | | | | | | [address] | | | | | | | | +--------+---------+ + + + | 11/24/ | Office | Cardiology | [place], | | | 2019 | Visit | | SINDHU Erickson [address] | | | | | | [place], | | | | | | [place] [address] | | | | | | [phone] | | | | | | | | +--------+---------+ + + + documented as of this encounter Visit Diagnoses Not on filedocumented in this encounter"
--- OUTSIDE RECORDS SUMMARY | ~2019-01-15 | XMS | Encounter Summary ---
Demographics + + + | Address | [address] | | | [place] [address] | + + + | Home Phone [...] | | Ayaka Marley MD | [facility] | | | | | [address] | [place] [address] | | | | | [phone] | [phone] | | | | | | | [...] [place] | | | | | | [address] | | | | | | | | +--------+---------+ + + + | 11/24/ | Office | Cardiology | [place], | | | 2019 | Visit | | SINDHU Erickson [address] | | | | | | [place], | | | | | | [place] [address] | | | | | | [phone] | | | | | | | | +--------+---------+ + + + documented as of this encounter Visit Diagnoses Not on filedocumented in this encounter"
--- OUTSIDE RECORDS SUMMARY | ~2019-01-15 | XMS | Encounter Summary ---
Demographics + + + | Address | [address] | | | [place] [address] | + + + | Home Phone [...] Team Providers + +------+ + | Care Harbor Master Name | Role | Phone | + +------+ + PCP | Unavailable | + +------+ + Encounter Details +--------+ + + + + | Date | Type | Department | Care Team | Description | +--------+ + + + + | 05/11/ | Hospital | [facility] | Berna Vizcaino MD | Special screening | | 2010 | Encounter | CONVERSION DEP [address] | [address] | for osteoporosis | | | | [address] | [place] [address] | | | | | [place], [place] | [phone] | | | | | [address] | | | | | | [phone] | | | +--------+ + + + [...] | | | | | | [place] [address] | | | | | | [phone] | | | | | | | [...] Performed At | + + + | [facility] [address] Ph: | | | Patient Name: JADYN SCHMITZ Date of : | | | 1965 Medical Record: [id number] Account: [id number] | | | Exam Date/Time: 05/11/2010 11:30 [...] was scanned in the anterior projection and ckpcyh-kf-vtbmbimg | | | values were drawn about the vertebral segments of L1 through L4 at | | | the levels where accurate assessment was possible. A bone mineral | | | analysis was also performed on the left hip with mknbkc-ty-kaplqgzj | | | areas including the femoral [...] 10/17/2018 5:21 PM PDT | | [facility] | | [facility] [place] [address] | | | | | | Patient Name: JADYN SCHMITZ W | | Date of : 1965 | | Medical Record: [id number] | | Account: [id number] | | | | | | Exam [...] | scanned in the anterior projection and crckmi-uv-yzryfvmi values were drawn | | about the vertebral segments of L1 through L4 at the levels where accurate | | assessment was possible. A bone mineral analysis was also performed on the | | left hip with fymktf-vf-ijfoktrw areas including the femoral neck measured. | [...]
--- OUTSIDE RECORDS SUMMARY | ~2019-01-15 | XMS | Encounter Summary ---
Demographics + + + | Address | [address] | | | [place] [address] | + + + | Home Phone [...] Team Providers + +------+ + | Care Agricultural Labor Camp Manager Name | Role | Phone | [...] | [address] [place] | [place] [address] | Dx) | | | | [facility], [place] | [phone] | | | | | [address] | | | | | | [phone] | | | +--------+ + + + [...] [place] | | | | | | [address] | | | | | | | | +--------+---------+ + + + | 11/24/ | Office | Cardiology | [place], | | | 2019 | Visit | | SINDHU Erickson [address] | | | | | | [place], | | | | | | [place] [address] | | | | | | [phone] | | | | | | | | +--------+---------+ + + + documented as of this encounter Visit Diagnoses + + | Diagnosis | + + | Other specified sites of sprains and strains - Primary | + + documented in this encounter"
--- OUTSIDE RECORDS SUMMARY | ~2019-01-15 | XMS | Encounter Summary ---
Demographics + + + | Address | [address] | | | [place] [address] | + + + | Home Phone [...] Team Providers + +------+ + | Care Owner Spa Director Name | Role | Phone | [...] | (Primary Dx) | | | | [place], | [address] | | | | | [place] [address] | | | | | | [phone] | | | +--------+ + + + [...] [place] | | | | | | [address] | | | | | | | | +--------+---------+ + + + | 11/24/ | Office | Cardiology | [place], | | | 2019 | Visit | | SINDHU Erickson [address] | | | | | | [place], | | | | | | [place] [address] | | | | | | [phone] | | | | | | | [...]
--- OUTSIDE RECORDS SUMMARY | ~2019-01-15 | XMS | Encounter Summary ---
Demographics + + + | Address | [address] | | | [place] [address] | + + + | Home Phone [...] Team Providers + +------+ + | Care Esthetician And Manager Medical Spa Name | Role | Phone | + [...] | RN | | | | | [place], | | | | | | [place] [address] | | | | | | [phone] | | | +--------+ + + + [...] [place] | | | | | | [address] | | | | | | | | +--------+---------+ + + + | 11/24/ | Office | Cardiology | [place], | | | 2019 | Visit | | SINDHU Erickson [address] | | | | | | [place], | | | | | | [place] [address] | | | | | | [phone] | | | | | | | | +--------+---------+ + + + documented as of this encounter Visit Diagnoses Not on filedocumented in this encounter"
--- OUTSIDE RECORDS SUMMARY | ~2019-01-15 | XMS | Encounter Summary ---
Demographics + + + | Address | [address] | | | [place] [address] | + + + | Home Phone [...] Providers + +------+ + | Care Motion Designer Name | Role | Phone | [...] | | | | [facility] | [address] | [address] | | | | | EXERCISE | [place], | [place] | | | | | | [place] [address] | [place], [place] | | | | | | Phone: | [address] | | | | | | [phone] | Phone: | | | | | | Fax: | [phone] | | | | | | [phone] | Fax: | | | | | | | [phone] | +--------+--------+ + + + + Encounter Details +--------+---------+ + + + | Date | Type | Department | Care Team | Description | +--------+---------+ + + + | 07/09/ | Office | [facility] | Jared Mcdonough, | Chronic obstructive | | 2017 | Visit | MED CTR CARDIAC | MD Migdalia King | pulmonary disease, | | | | REHABILITATION [address] [place], | unspecified COPD | | | | [address] [place] | [place] [address] | type (HCC) (Primary | | | | [place] [address] | [phone] | Dx); Pulmonary | | | | [phone] | | emphysema, | | | | [...] [place] | | | | | | [address] | | | | | | | | +--------+---------+ + + + | 11/24/ | Office | Cardiology | [place], | | | 2019 | Visit | | SINDHU Erickson [address] | | | | | | [place], | | | | | | [place] [address] | | | | | | [phone] | | | | | | | | +--------+---------+ + + + documented as of this encounter Visit Diagnoses + + | Diagnosis | + + | Chronic obstructive pulmonary disease, unspecified COPD type (HCC) - Primary | + + | Pulmonary emphysema, unspecified emphysema type (HCC) | + + documented in this encounter"
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
--- OUTSIDE RECORDS SUMMARY | ~2019-01-15 | XMS | Encounter Summary ---
Demographics + + + | Address | [address] | | | [place] [address] | + + + | Home Phone [...] Team Providers + +------+ + | Care Shale Miner Blasting Name | Role | Phone | + +------+ + | Juan Cherry DO | PCP | | + +------+ + Encounter Details +--------+ + + + + | Date | Type | Department | Care Team | Description | +--------+ + + + + | 11/08/ | Hospital | [facility] | Conversion | Asthma, moderate | | 2015 | Encounter | [facility] [address] | Transaction, | persistent, | | | | [address] | Provider Unknown | uncomplicated | | | | [place], [place] | [phone] | | | | | [address] | | | | | | [phone] | | | +--------+ + + + [...] | send order to [facility] | | | | | | | [facility]. | | | | | | [...] [place] | | | | | | [address] | | | | | | | | +--------+---------+ + + + | 11/24/ | Office | Cardiology | [place] | | | 2019 | Visit | | SINDHU Erickson [address] | | | | | | [place], | | | | | | [place] [address] | | | | | | [phone] | | | | | | | [...]
--- OUTSIDE RECORDS SUMMARY | ~2019-01-15 | XMS | Encounter Summary ---
Demographics + + + | Address | [address] | | | [place] [address] | + + + | Home Phone [...] Team Providers + +------+ + | Care Engagement Specialist Name | Role | Phone | + +------+ + | Juan Cherry DO | PCP | | + +------+ + Encounter Details +--------+ + + + + | Date | Type | Department | Care Team | Description | +--------+ + + + + | 08/05/ | Hospital | [facility] | Kevin Sandoval, | Chronic airway | | 2013 | Encounter | MED CTR PULMONARY | MD [address] | obstruction, not | | | | FUNCTION [address] | [place], [place] | elsewhere classified | | | | [place], | [address] | (HCC) | | | | [place] [address] | | | | | | [phone] | | | +--------+ + + + [...] [place] | | | | | | [address] | | | | | | | | +--------+---------+ + + + | 11/24/ | Office | Cardiology | [place], | | | 2019 | Visit | | SINDHU Erickson [address] | | | | | | [place], | | | | | | [place] [address] | | | | | | [phone] | | | | | | | [...] classified | | | | | | ([facility]) | | + +--------+ + + + documented in this encounter Visit Diagnoses + + | Diagnosis | + + | Chronic airway obstruction, not elsewhere classified | + + documented in this encounter"
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
--- OUTSIDE RECORDS SUMMARY | ~2019-01-15 | XMS | Encounter Summary ---
Demographics + + + | Address | [address] | | | [place] [address] | + + + | Home Phone [...] Team Providers + +------+ + | Care Penciller Name | Role | Phone | + [...] | | | | [facility] | [address] | [address] | | | | | EXERCISE | [place], | [place] | | | | | | [place] [address] | [place], [place] | | | | | | Phone: | [address] | | | | | | [phone] | Phone: | | | | | | Fax: | [phone] | | | | | | [phone] | Fax: | | | | | | | [phone] | +--------+--------+ + + + + Encounter Details +--------+---------+ + + + | Date | Type | Department | Care Team | Description | +--------+---------+ + + + | 07/04/ | Office | [facility] | Jared Mcdonough, | Chronic obstructive | | 2017 | Visit | MED CTR CARDIAC | MD Migdalia King | pulmonary disease, | | | | REHABILITATION [address] [place], | unspecified COPD | | | | [address] [place] | [place] [address] | type (HCC) (Primary | | | | [place] [address] | [phone] | Dx); Mild persistent | | | | [phone] | | asthma without | | | [...] [place] | | | | | | [address] | | | | | | | | +--------+---------+ + + + | 11/24/ | Office | Cardiology | [place], | | | 2019 | Visit | | SINDHU Erickson [address] | | | | | | [place], | | | | | | [place] [address] | | | | | | [phone] | | | | | | | [...]
--- OUTSIDE RECORDS SUMMARY | ~2019-01-15 | XMS | Encounter Summary ---
Demographics + + + | Address | [address] | | | [place] [address] | + + + | Home Phone [...] Providers + +------+ + | Care Fire Control Technician G Name | Role | Phone | + +------+ + | Juan Cherry DO | PCP | | + +------+ + Encounter Details +--------+ + + + + | Date | Type | Department | Care Team | Description | +--------+ + + + + | 04/02/ | Hospital | [facility] | Dio Yun | | | 2017 | Encounter | MED CTR NUCLEAR | MD [address] | | | | | MEDICINE [address] | [place] [address] | | | | | [place], | [place], [place] | | | | | [place] [address] | [address] | | | | | [phone] | [phone] | | | | | | | [...] | 0 | 10/13/19 | | | Usjuhzjmpi-KFWQ-Xxrf | mouth as needed. | | | 16 | 7 | | -Cod [id number] MG | | | | | | [...] | | | | | | [place] [address] | | | | | | [phone] | | | | | | | [...] | | | Dictated and Signed by: dAitya Snyder MD Electronically signed: | | | [...] + + | Performing | Address | City/State/[facility] | Phone Number | | Organization | | | | + +---------+ + + | [facility] | | | | + +---------+ + + documented in this encounter Visit Diagnoses Not on filedocumented in this encounter
--- OUTSIDE RECORDS SUMMARY | ~2019-01-15 | XMS | Encounter Summary ---
Demographics + + + | Address | [address] | | | [place] [address] | + + + | Home Phone [...] Providers + +------+ + | Care Research Aide Name | Role | Phone | [...] + + | 05/23/ | Emergency | [facility] | Heriberto, | COPD with acute | | 2013 | | MED CTR EMERGENCY | Ozzy Kim MD [address] | exacerbation (HCC) | | | | [place] [address] [place] | [address] [facility] | (Primary Dx); COPD | | | | [place], [place] | [place] [address] | exacerbation (HCC) | | | | [address] | [phone] | | | | | [phone] | | | +--------+ + + + [...] | | | | | order to [facility]. | | | | | [...] [place] | | | | | | [address] | | | | | | | | +--------+---------+ + + + | 11/24/ | Office | Cardiology | [place], | | | 2019 | Visit | | SINDHU Erickson [address] | | | | | | [place], | | | | | | [place] [address] | | | | | | [phone] | | | | | | | [...] + | MISCELLANEOUS LAB | | | [phone] | + +---------+ + + | MISCELANIOUS LAB | | | [phone] | + +---------+ + + documented in [...] | | | | Nebulization, RT Once, Rudolph | | | | | | | [...]
--- OUTSIDE RECORDS SUMMARY | ~2019-01-15 | XMS | Encounter Summary ---
Demographics + + + | Address | [address] | | | [place] [address] | + + + | Home Phone [...] Team Providers + +------+ + | Care Ophthalmology Assistant Name | Role | Phone | [...] + + | 11/23/ | Emergency | [facility] | Alexi Guaman, | Post-op pain | | 2016 | | MED CTR EMERGENCY | MD [address] | (Primary Dx) | | | | CENTER [address] | [place] | | | | | [place] | [address] | | | | | [address] | | | | | | [phone] | | | +--------+ + + + [...] sent through Care Everywhere.PAIN MANAGEMENT AFTER SURGERY ([facility]IC)documented in this encounter Medications at Time of [...] | 0 | 10/13/19 | | | Cerenjcdvh-QFBV-Ciop | mouth as needed. | | | 16 | 7 | | -Cod [id number] MG | | | | | | [...] [place] | | | | | | [address] | | | | | | | | +--------+---------+ + + + | 11/24/ | Office | Cardiology | [place], | | | 2019 | Visit | | SINDHU Erickson [address] | | | | | | [place], | | | | | | [place] [address] | | | | | | [phone] | | | | | | | [...]
--- OUTSIDE RECORDS SUMMARY | ~2019-01-15 | XMS | Encounter Summary ---
Demographics + + + | Address | [address] | | | [place] [address] | + + + | Home Phone [...] Providers + +------+ + | Care Truck Loader And Unloader Name | Role | Phone | [...] + + | 06/23/ | Hospital | [facility] | [place], | Racing heart beat | | 2018 | Encounter | MED CTR NUCLEAR | SINDHU Erickson [address] | | | | | MEDICINE [address] | [place], | | | | | [place], | [place] [address] | | | | | [place] [address] | [phone] | | | | | [phone] | | | +--------+ + + + [...] | | | order to [facility]. | | | | | + [...] [place] | | | | | | [address] | | | | | | | | +--------+---------+ + + + | 11/24/ | Office | Cardiology | [place], | | | 2019 | Visit | | SINDHU Erickson [address] | | | | | | [place], | | | | | | [place] [address] | | | | | | [phone] | | | | | | | | +--------+---------+ + + + documented as of this encounter Visit Diagnoses + + | Diagnosis | + + | Racing heart beat Tachycardia, unspecified | + + documented in this encounter"
--- OUTSIDE RECORDS SUMMARY | ~2019-01-15 | XMS | Encounter Summary ---
Demographics + + + | Address | [address] | | | [place] [address] | + + + | Home Phone [...] | (obstructive | [address] | [place] | | | | | sleep | [place] | [place], | | | | | apnea) | [place], [place] | [place] [address] | | | | | Procedures | [address] | Phone: | | | | | ME POLYSOM | Phone: | [phone] | | | | | 6/>YRS SLEEP | [phone] | Fax: | | | | | 4/> ADDL | Fax: | [phone] | | | | | ALESSIA ATTND | [phone] | | | | | | ME POLYSOM | | | | | | [...] sleep apnea) | | | | [address] [place] | [place] | (Primary Dx) | | | | [place] [address] | [address] | | | | | [phone] | | | +--------+ + + + [...] [place] | | | | | | [address] | | | | | | | | +--------+---------+ + + + | 11/24/ | Office | Cardiology | [place], | | | 2019 | Visit | | SINDHU Erickson [address] | | | | | | [place], | | | | | | [place] [address] | | | | | | [phone] | | | | | | | | +--------+---------+ + + + + + +--------+ + + | Name | Type | Priori | Associated Diagnoses | Order Schedule | | | | ty | | | + + +--------+ + + | * [facility] - | Outpatient | [...]
--- OUTSIDE RECORDS SUMMARY | ~2019-01-15 | XMS | Encounter Summary ---
Demographics + + + | Address | [address] | | | [place] [address] | + + + | Home Phone [...] Team Providers + +------+ + | Care Chart Reader Name | Role | Phone | [...] emphysema type (HCC) | | | | [place], | [address] | (Primary Dx) | | | | [place] [address] | | | | | | [phone] | | | +--------+ + + + [...] [place] | | | | | | [address] | | | | | | | | +--------+---------+ + + + | 11/24/ | Office | Cardiology | [place], | | | 2019 | Visit | | SINDHU Erickson [address] | | | | | | [place], | | | | | | [place] [address] | | | | | | [phone] | | | | | | | [...] | | | Romi Sandoval MD 02/29/2016 6:30[facility] | | |IMPRESSION: Spirometry is consistent with [...] Kevin Sandoval MD 02/29/2016 6:30 | | |[facility] | | + + + documented in this encounter Visit Diagnoses + + | Diagnosis | + + | Pulmonary emphysema, unspecified emphysema type (HCC) - Primary | + + documented in this encounter"
--- OUTSIDE RECORDS SUMMARY | ~2019-01-15 | XMS | Encounter Summary ---
Demographics + + + | Address | [address] | | | [place] [address] | + + + | Home Phone [...] Team Providers + +------+ + | Care Signal Processing Engineer Name | Role | Phone | [...] + + | 09/26/ | Telephone | [facility] | Kevin Sandoval, | Other (increased | | 2015 | | PULMONARY [address] | MD [address] | shortness of breath) | | | | [place], | [place], [place] | | | | | [place] [address] | [address] | | | | | [phone] | | | +--------+ + + + [...] [place] | | | | | | [address] | | | | | | | | +--------+---------+ + + + | 11/24/ | Office | Cardiology | Flores, | | | 2019 | Visit | | SINDHU Erickson [address] | | | | | | [place], | | | | | | [place] [address] | | | | | | [phone] | | | | | | | | +--------+---------+ + + + documented as of this encounter Visit Diagnoses Not on filedocumented in this encounter"
--- OUTSIDE RECORDS SUMMARY | ~2019-01-15 | XMS | Encounter Summary ---
Demographics + + + | Address | [address] | | | [place] [address] | + + + | Home Phone [...] Team Providers + +------+ + | Care Buildings Painter Name | Role | Phone | + +------+ + | Juan Cherry DO | PCP | | + +------+ + Encounter Details +--------+ + + + + | Date | Type | Department | Care Team | Description | +--------+ + + + + | 09/09/ | Hospital | [facility] | Conversion | Pain | | 2015 | Encounter | CONVERSION [address] | Transaction, | | | | | [address] | Provider Unknown | | | | | [place], [place] | [phone] | | | | | [address] | | | | | | [phone] | | | +--------+ + + + [...] [place] | | | | | | [address] | | | | | | | | +--------+---------+ + + + | 11/24/ | Office | Cardiology | Flores, | | | 2019 | Visit | | SINDHU Erickson [address] | | | | | | [place], | | | | | | [place] [address] | | | | | | [phone] | | | | | | | [...]
--- OUTSIDE RECORDS SUMMARY | ~2019-01-15 | XMS | Encounter Summary ---
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 Length of Need 99 months. Please send order to [facility]. 1 each 0 Respiratory Therapy Supplies [facility] Change CPAP back to 11-14 cm H2O. [...] urethra was dilated today to a 28 [place] with [place] sounds. She tolerated this wel l without [...] underwent a urethral dilatation to a 26 [place] in size. I've asked her to call [...] This document was generated in part using [employer] voice recognition software. Although ever y effort is made to edit the content, flight instructor errors may occur. Occasional wrong word or [...] [place] | | | | | | [address] | | | | | | | | +--------+---------+ + + + | 11/24/ | Office | Cardiology | Flores, | | | 2019 | Visit | | SINDHU Erickson [address] | | | | | | [place], | | | | | | [place] [address] | | | | | | [phone] | | | | | | | [...] 1.001 - 1.030 | | | | [place], | | | | | | [facility], [...]
--- OUTSIDE RECORDS SUMMARY | ~2019-01-15 | XMS | Encounter Summary ---
Demographics + + + | Address | [address] | | | [place] [address] | + + + | Home Phone [...] Providers + +------+ + | Care Internet Sales Manager Name | Role | Phone [...] shortnes of breath) | | | | [place], | | | | | | [place] [address] | | | | | | [phone] | | | +--------+ + + + [...] [place] | | | | | | [address] | | | | | | | | +--------+---------+ + + + | 11/24/ | Office | Cardiology | [place], | | | 2019 | Visit | | SINDHU Erickson W | | | | | | [place] | | | | | | [place] [address] | | | | | | [phone] | | | | | | | | +--------+---------+ + + + documented as of this encounter Visit Diagnoses Not on filedocumented in this encounter"
--- OUTSIDE RECORDS SUMMARY | ~2019-01-15 | XMS | Encounter Summary ---
Demographics + + + | Address | [address] | | | [place] [address] | + + + | Home Phone [...] Team Providers + +------+ + | Care Peoplesoft Hr Developer Name | Role | Phone | [...] | COPD | MD Kevin | [address] [place] | | | | | (chronic | [address] | [place], | | | | | obstructive | [place] | [place] [address] | | | | | pulmonary | [place], | Phone: | | | | | disease) | [place] [address] | [phone] | | | | | (HCC) | Phone: | Fax: | | | | | Procedures | [phone] | [phone] | | | | | CT Chest wo | Fax: | | | | | | Contrast | [phone] | | +--------+--------+ + + + + [...] | COPD | MD Kevin | [address] [place] | | | | | (chronic | [address] | [address], | | | | | obstructive | [place] | [place] [address] | | | | | pulmonary | [place], | Phone: | | | | | disease) | [place] [address] | [phone] | | | | | (HCC) | Phone: | Fax: | | | | | Procedures | [phone] | [phone] | | | | | CT Chest wo | Fax: | | | | | | Contrast | [phone] | | +--------+--------+ + + + + Encounter Details +--------+ + + + + | Date | Type | Department | Care Team | Description | +--------+ + + + + | 11/16/ | Hospital | [facility] | Kevin Sandoval, | COPD (chronic | | 2013 | Encounter | MED CTR CT [address] | [address] | obstructive | | | | [place], | [place], [place] | pulmonary disease) | | | | [place] [address] | [id number] | ([facility]) | | | | [phone] | | | +--------+ + + + [...] [place] | | | | | | [address] | | | | | | | | +--------+---------+ + + + | 11/24/ | Office | Cardiology | [place], | | | 2019 | Visit | | SINDHU Erickson [address] | | | | | | [place], | | | | | | [place] [address] | | | | | | [phone] | | | | | | | [...] + | MISCELLANEOUS LAB | | | [phone] | + +---------+ + + | MISCELANIOUS LAB | | | [phone] | + +---------+ + + documented in this encounter Visit Diagnoses + + | Diagnosis | + + | COPD (chronic obstructive pulmonary disease) (HCC) Chronic airway obstruction, not | | elsewhere classified | + + documented in this encounter
--- OUTSIDE RECORDS SUMMARY | ~2019-01-15 | XMS | Encounter Summary ---
Demographics + + + | Address | [address] | | | [place] [address] | + + + | Home Phone [...] Team Providers + +------+ + | Care Piler Name | Role | Phone | [...] + | 08/28/ | Documentati | [facility] | Kathi Soto, | No Show | | 2017 | on | MED CTR SPEECH | Speech Pathologist | | | | | THERAPY [address] | | | | | | [place], | | | | | | [place] [address] | | | | | | [phone] | | | +--------+ + + + [...] Speech Pathologist - 08/28/2016 10:23 AM [facility] [address] [place] [address] Cancellation/No Show Date: 08/28/2016 Patient Information Patient [...] [place] | | | | | | [id number] | | | | | | | | +--------+---------+ + + + | 11/24/ | Office | Cardiology | [place], | | | 2019 | Visit | | SINDHU Erickson [address] | | | | | | [place] | | | | | | [place] [address] | | | | | | [phone] | | | | | | | | +--------+---------+ + + + documented as of this encounter Visit Diagnoses Not on filedocumented in this encounter"
--- OUTSIDE RECORDS SUMMARY | ~2019-01-15 | XMS | Encounter Summary ---
Demographics + + + | Address | [address] | | | [place] [address] | + + + | Home Phone [...] Team Providers + +------+ + | Care Adaptive Physical Education Specialist Name | Role | Phone | [...] [address] | | | | | [place], | [place] | | | | | [place] [address] | [address] | | | | | [phone] | | | +--------+--------+ + + + [...] | | | | | | [place] [address] | | | | | | [phone] | | | | | | | | +--------+---------+ + + + documented as of this encounter Visit Diagnoses Not on filedocumented in this encounter"
--- OUTSIDE RECORDS SUMMARY | ~2019-01-15 | XMS | Encounter Summary ---
Demographics + + + | Address | [address] | | | [place] [address] | + + + | Home Phone [...] Providers + +------+ + | Care Lighting Designer Name | Role | Phone | [...] [address] | | | | | [place], | [address] [place] | | | | | [place] [address] | [place] [address] | | | | | [phone] | [phone] | | | | | | | [...] Speech Pathologist - 07/18/2016 10:08 AM [facility] [address] [facility] [address] Cancellation/No Show Date: 07/18/2016 Patient Information Patient [...] [place] | | | | | | [id number] | | | | | | | | +--------+---------+ + + + | 11/24/ | Office | Cardiology | [place] | | | 2019 | Visit | | SINDHU Erickson [address] | | | | | | [place] | | | | | | [place] [address] | | | | | | [phone] | | | | | | | | +--------+---------+ + + + documented as of this encounter Visit Diagnoses Not on filedocumented in this encounter"
--- OUTSIDE RECORDS SUMMARY | ~2019-01-15 | XMS | Encounter Summary ---
Demographics + + + | Address | [address] | | | [place] [address] | + + + | Home Phone [...] Providers + +------+ + | Care Dirt Bike Mechanic Name | Role | Phone | [...] | Transaction, | | | | | [address] | Provider Unknown | | | | | [place], [place] | [phone] | | | | | [address] | | | | | | [phone] | | | +--------+ + + + [...] | | | | | | [facility]. | | | | | [...] | 0 | 10/13/19 | | | Uzgovaerrj-DPUR-Jlkf | mouth as needed. | | | 16 | 7 | | -Cod 40-447-52-30 MG | | | | | | [...] [place] | | | | | | [id number] | | | | | | | | +--------+---------+ + + + | 11/24/ | Office | Cardiology | [place], | | | 2019 | Visit | | SINDHU Erickson [address] | | | | | | [place] | | | | | | [place] [address] | | | | | | [phone] | | | | | | | [...]
--- OUTSIDE RECORDS SUMMARY | ~2019-01-15 | XMS | Encounter Summary ---
Demographics + + + | Address | [address] | | | [place] [address] | + + + | Home Phone [...] + | 09/20/ | Orders Only | [facility] | Provider, | | | 2018 | | SYSTEM GENERIC OP | MD [address] | | | | | CONVERSION [address] | [place]. | | | | | [address] [place], [place] | [place] [address] | | | | | [address] | | | | | | [phone] | | | +--------+ + + + [...] [place] | | | | | | [address] | | | | | | | | +--------+---------+ + + + | 11/24/ | Office | Cardiology | [place], | | | 2020 | Visit | | SINDHU Erickson [address] | | | | | | [place], | | | | | | [place] [address] | | | | | | [phone] | | | | | | | | +--------+---------+ + + + documented as of this encounter Visit Diagnoses Not on filedocumented in this encounter"
--- OUTSIDE RECORDS SUMMARY | ~2019-01-15 | XMS | Encounter Summary ---
Demographics + + + | Address | [address] | | | [place] [address] | + + + | Home Phone [...] + +------+ + | Care Loss Prevention Auditor Name | Role | Phone | + [...] | | | | | pulmonary | [address] | [address] | | | | | disease, | [place], | [address] [place] | | | | | unspecified | [place] [address] | [place], [place] | | | | | COPD type | Phone: | [address] | | | | | (HCC) | [phone] | Phone: | | | | | Pulmonary | Fax: | [phone] | | | | | emphysema, | [phone] | Fax: | | | | | unspecified | | [phone] | | | | | emphysema | | | | | | | type ([facility]) | | | +--------+ + + + + + Encounter Details +--------+---------+ + + + | Date | Type | Department | Care Team | Description | +--------+---------+ + + + | 05/07/ | Office | [facility] | Danieljeremyjose Jared, | Mild persistent | | 2017 | Visit | MED CTR CARDIAC | [address] | asthma without | | | | REHABILITATION [address] [place], | complication | | | | [address] [place] | [place] [address] | (Primary Dx); | | | | [place] [address] | [phone] | Chronic obstructive | | | | [phone] | | pulmonary disease, | | | [...] of this encounter Progress Notes Tricia Herron, DIAMOND SANDER - 05/07/2016 1:52 PM PDTMsChris Malik is [...] [place] | | | | | | [address] | | | | | | | | +--------+---------+ + + + | 11/24/ | Office | Cardiology | [place], | | | 2019 | Visit | | SINDHU Erickson [address] | | | | | | [place], | | | | | | [place] [address] | | | | | | [phone] | | | | | | | [...]
--- OUTSIDE RECORDS SUMMARY | ~2019-01-15 | XMS | Encounter Summary ---
Demographics + + + | Address | [address] | | | [place] [address] | + + + | Home Phone [...] Providers + +------+ + | Care School Administrator Name | Role | Phone | + +------+ + | Juan Cherry DO | PCP | | + +------+ + Encounter Details +--------+ + + + + | Date | Type | Department | Care Team | Description | +--------+ + + + + | 04/12/ | Hospital | [facility] | Ozzie Hayes | | | 2013 | Encounter | MED CTR EMERGENCY | MD Ran [address] | | | | | [place] [address] | [address] [place] | | | | | [place], [place] | [place] [address] | | | | | [address] | [phone] | | | | | [phone] | | | +--------+ + + + [...] | | | | | | [place] [address] | | | | | | [phone] | | | | | | | [...] | [facility] Diagnostic Imaging | [place] | | Department [address] [place], [place] | [facility] | | [ rep ct street[address]] [ rep ct [facility] | | st zip] Signed | - IMAGING | | | | | Patient Name: JADYN SCHMITZ | | | Physician: CHEVY : 1965 Age: 48 Sex: F Unit | | | #: [id number] Exam Date: 04/12/13 Location: | | | ER Report #: [id number] Page: | | | %(RAD)RES..mtdd.print.filter("pg") of %(RAD) | | | RES..mtdd.print.filter("tpg") | | | | | | Accession Number: [id number] | | | PORTABLE CHEST CLINICAL HISTORY: [...] Transcribed | | | Date/Time: 04/12/2013 08:42 Bench Scientist: | | | <<Signature on File>> | | | | | | Cesar Ren MD04/12/13 0957 <Electronically signed by | | | Cesar Ren MD> Cesar Ren MD 04/12/13 | | | 0732 Bench Scientist: [employer] Pharbcfblsaqa59/17/14 0842 | | | Ozzie Hayes MD | | + + + + + + + + | Performing | Address | City/State/Zipcode | Phone Number | | Organization | | | | + + + + + | [facility] | [address] | [place] | [phone] | | [facility] | | [address] | | | - IMAGING | | | | + + + + + documented in this encounter Visit Diagnoses Not on filedocumented in this encounter
--- OUTSIDE RECORDS SUMMARY | ~2019-01-15 | XMS | Encounter Summary ---
Demographics + + + | Address | [address] | | | [place] [address] | + + + | Home Phone [...] Team Providers + +------+ + | Care Auto Body Repair Teacher Name | Role | Phone | [...] on | MED CTR THERAPY PT | ULTRASONIC WELDING MACHINE OPERATOR [address] | | | | | OP [address] | [place], [place] | | | | | [place], [place] | [address] | | | | | [address] | [phone] | | | | | [phone] | | | +--------+ + + + [...] of this encounter Progress Notes Janey Low, ULTRASONIC WELDING MACHINE OPERATOR - 06/02/2013 9:39 AM [facility] OP [address] [place] [address] Cancellation/No Show Date: 06/02/2013 Patient Information Patient [...] [place] | | | | | | [id number] | | | | | | | | +--------+---------+ + + + | 11/24/ | Office | Cardiology | [place] | | | 2019 | Visit | | SINDHU Erickson [address] | | | | | | [place], | | | | | | [place] [address] | | | | | | [phone] | | | | | | | | +--------+---------+ + + + documented as of this encounter Visit Diagnoses Not on filedocumented in this encounter"
--- OUTSIDE RECORDS SUMMARY | ~2019-01-15 | XMS | Encounter Summary ---
Demographics + + + | Address | [address] | | | [place] [address] | + + + | Home Phone [...] Providers + +------+ + | Care Regional Marketing Manager Name | Role | Phone [...] [address] | | | | | [place], | [place], | | | | | [place] [address] | [place] [address] | | | | | [phone] | [phone] | | | | | | | [...] | | | | [place], [place] | | | | | | [address] | | | | | | | | +--------+---------+ + + + | 11/24/ | Office | Cardiology | [place], | | | 2019 | Visit | | SINDHU Erickson [address] | | | | | | [place], | | | | | | [place] [address] | | | | | | [phone] | | | | | | | [...]
--- OUTSIDE RECORDS SUMMARY | ~2019-01-15 | XMS | Encounter Summary ---
Demographics + + + | Address | [address] | | | [place] [address] | + + + | Home Phone [...] Providers + +------+ + | Care Compensation Specialist Name | Role | Phone | [...] + + | 05/19/ | Office | [facility] | Brian Miranda | Sprain of chest wall | | 2013 | Visit | MED CTR THERAPY PT | MD [address] | (Primary Dx) | | | | OP [address] | [facility] | | | | | [place] | [place] [address] | | | | | [address] | [phone] | | | | | [phone] | | | | | | | Janey Low, | | | | | | COAL CUTTER [address] | | | | | | [place] [facility] [place] | | | | | | [address] | | | | | | [phone] | | | | | | | [...] of this encounter Progress Notes Janey Low, COAL CUTTER - 05/19/2013 1:38 PM PDTFormatting of this note might be different f rom the original. [facility] CTR THERAPY PT OP [address] [place] [address] Physical Therapy Daily Treatment Note Date: 05/19/2013 [...] [place] | | | | | | [facility] | | | | | | [address] | | | | | | | | +--------+---------+ + + + | 11/24/ | Office | Cardiology | [place], | | | 2020 | Visit | | SINDHU Erickson [address] | | | | | | [place], | | | | | | [place] [address] | | | | | | [phone] | | | | | | | | +--------+---------+ + + + documented as of this encounter Visit Diagnoses + + | Diagnosis | + + | Sprain of chest wall - Primary Other specified sites of sprains and strains | + + documented in this encounter
--- OUTSIDE RECORDS SUMMARY | ~2019-01-15 | XMS | Encounter Summary ---
Demographics + + + | Address | [address] | | | [place] [address] | + + + | Home Phone [...] Providers + +------+ + | Care Concrete Paving Supervisor Name | Role | Phone | + +------+ + | Juan Cherry DO | PCP | | + +------+ + Encounter Details +--------+---------+ + + + | Date | Type | Department | Care Team | Description | +--------+---------+ + + + | 06/06/ | Office | [facility] | Jared Mcdonough, | Chronic obstructive | | 2017 | Visit | MED CTR CARDIAC | [address] [place] | pulmonary disease, | | | | REHABILITATION [address] | [place], | unspecified COPD | | | | [address] [place] | [place] [address] | type (HCC) (Primary | | | | [place] [address] | [phone] | Dx); Pulmonary | | | | [phone] | | emphysema, | | | | [...] Wheeler - 06/06/2016 3:12 PM PDT [facility] CARDIAC REHABILITATION [address] [facility] [address] Cardiac Rehab Date: 06/06/2016 Patient Information Patient [...] | | | | [place] | | | | | | [address] | | | | | | | | +--------+---------+ + + + | 10/01/ | Office | Cardiology | [place], | | | 2019 | Visit | | SINDHU Erickson [address] | | | | | | [place], | | | | | | [place] [address] | | | | | | [phone] | | | | | | | | +--------+---------+ + + + documented as of this encounter Visit Diagnoses + + | Diagnosis | + + | Chronic obstructive pulmonary disease, unspecified COPD type (HCC) - Primary | + + | Pulmonary emphysema, unspecified emphysema type (HCC) | + + documented in this encounter"
--- OUTSIDE RECORDS SUMMARY | ~2019-01-15 | XMS | Encounter Summary ---
Demographics + + + | Address | [address] | | | [place] [address] | + + + | Home Phone [...] Team Providers + +------+ + | Care Liquified Natural Gas Specialist Name | Role | Phone | [...] + | 04/03/ | Office | [facility] | [place], | Abnormal stress test | | 2017 | Visit | CARDIOLOGY [address] | SINDHU Erickson [address] | (Primary Dx); | | | | [place], | [place], | Paroxysmal atrial | | | | [place] [address] | [place] [address] | tachycardia (HCC) | | | | [phone] | [phone] | | | | | | | [...] 4 hours as needed. 360 mL 5 Olbopoikxe-GUXY-Rcoz-Cod 07-399-09-30 MG CAPS Take 1 capsule by mouth [...] takes this da rigoberto Respiratory Therapy Supplies [facility] Please provide patient with necessary CPAP supplies ( she did not specify, okay to send order as appropriate) Diagnosis Code(s)327.23 . Length of Need 99 months. Please send order to [facility]. 1 each 0 Respiratory Therapy Supplies [facility] Change CPAP back to 11-14 cm H2O. All necessary suppl ies. No oxygen bleed in. Diagnosis Code(s)327.23. Length of Need: Lifetime. Please send orde r to [facility]. This is not a new order, [...] longer present Confirmed by RAFA WELLS MD ([id number]) on 08/06/2015 9:42:29 AM LAB RESULTS reviewed [...] She was seen at the ED of [facility] 3 weeks ago and again 1 week [...] She is in a class II of [employer] on functional class. There is [...] and v entricular function done at the [facility]. LVEF 78%. C. Holter Monitor 08/16/13 Underlying [...] this chart may have been created with [employer] voice recognition software. Occasi onal wrong-word or [...] [place] | | | | | | [address] | | | | | | | | +--------+---------+ + + + | 11/24/ | Office | Cardiology | [place], | | | 2019 | Visit | | SINDHU Erickson [address] | | | | | | [place], | | | | | | [place] [address] | | | | | | [phone] | | | | | | | [...]
--- OUTSIDE RECORDS SUMMARY | ~2019-01-15 | XMS | Encounter Summary ---
Demographics + + + | Address | [address] | | | [place] [address] | + + + | Home Phone [...] Team Providers + +------+ + | Care Beef Breaker Name | Role | Phone | + [...] + + | 08/03/ | Emergency | [facility] | Alverto Tyler, | Dehydration (Primary | | 2016 | | MED CTR EMERGENCY | [address] [address] | Dx); Acute | | | | CENTER [address] | [place], [place] | hypokalemia; Urinary | | | | [place], [place] | [id number] | tract infection | | | | [address] | | without hematuria, | | | | [phone] | | site unspecified | +--------+ + [...] | | | order to [facility]. | | | | | + + [...] | | | | | | ([facility]ERLY [facility]) | | | | | [...] [place] | | | | | | 7[address] | | | | | | | | +--------+---------+ + + + | 11/24/ | Office | Cardiology | [place], | | | 2019 | Visit | | SINDHU Erickson [address] | | | | | | [place], | | | | | | [place] [address] | | | | | | [phone] | | | | | | | [...] [address] | [place] | [phone] | | [facility] | | [address] | | | - LABORATORY | | [...] - 1.030 | [facility] | | | [place] | | | [facility] | | [...] [address] | [place] | [phone] | | [facility] | | [address] | | | - LABORATORY | | [...] not | 39 (L)Comment: | >=60 | REK[place]W | | | | GLOMERULAR FILTRATION | mL/min/1.73m2 | [facility] | | | SRI LANKAN | RATE,ESTIMATED | | MEDICAL | | | | mL/min/1.06c3Snyd than | | CENTER - | | [...] + | [facility] | [address] | [place] | [phone] | | [facility] | | [address] | | | - LABORATORY | | [...] [address] | [place] | [phone] | | [facility] | | [address] | | | - LABORATORY | | [...] | | | | | | [employer] | | | | | [...] [address] | [place] | [phone] | | [facility] | | [address] | | | - LABORATORY | | [...] | | | | RAFA WELLS MD ([id number]) | | | | | | on [...]
--- OUTSIDE RECORDS SUMMARY | ~2019-01-15 | XMS | Encounter Summary ---
Demographics + + + | Address | [address] | | | [place] [address] | + + + | Home Phone [...] Team Providers + +------+ + | Care Pattern Keeper Name | Role | Phone | [...] + + | 03/22/ | Office | [facility] [place] | Offenstein, | COPD exacerbation | | 2013 | Visit | PULMONARY [address] | Loreta Alonso MD | ([facility]) (Primary Dx); | | | | [place], | | Complex sleep apnea | | | | [place] [address] | | syndrome | | | | [phone] | | | +--------+---------+ + + + [...] MD Ayaka Rasheed Pulmonary and Critical Care [facility] [address] [place], [address] HPI Rosario Malik is a 48 y.o. 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 documented [...] | | | | | | [place] [address] | | | | | | [phone] | | | | | | | | +--------+---------+ + + + documented as of this encounter Visit Diagnoses + + | Diagnosis | + + | COPD exacerbation (HCC) - Primary Obstructive chronic bronchitis with exacerbation | + + | Complex sleep apnea syndrome Unspecified sleep apnea | + + documented in this encounter
--- OUTSIDE RECORDS SUMMARY | ~2019-01-15 | XMS | Encounter Summary ---
Demographics + + + | Address | [address] | | | [place] [address] | + + + | Home Phone [...] Team Providers + +------+ + | Care Telecom Sales Consultant Name | Role | Phone [...] + + | 07/15/ | Office | [facility] | Kevin Sandoval, | COPD exacerbation | | 2013 | Visit | PULMONARY [address] | [address] | ([facility]) (Primary Dx); | | | | [place], | [place], [place] | COPD (chronic | | | | [place] [address] | [address] | obstructive | | | | [phone] | | pulmonary disease) | | | | | | ([facility]); Hypoxemia | +--------+---------+ + + + [...] are not enrolled in cardiac/pulmonary rehabilitation or the rehabilitation institute er physical therapy. They have not completed [...] [facility]) 10/28/2012 Overview: [facility] [...] Need 99 months. Please send order to [facility] D isp: 1 each, Rfl: 0 Respiratory Therapy Supplies MISC, Change CPAP back to 11-14 cm H2O. All necessary supplies . No oxygen bleed in. Diagnosis Code(s)327.23. Length of Need: Lifetime. [facility] order [facility]. This is not a new [...] breath sounds few expiratory wheezes bilaterally. No handicraft or hobby shop manager ckles or rhonchi. No dullness to percussion. [...] | | | | | | [place] [address] | | | | | | [phone] | | | | | | | [...] | 07/15/2014 | | | | | ([facility]) | | + + +--------+ + [...]
--- OUTSIDE RECORDS SUMMARY | ~2019-01-15 | XMS | Encounter Summary ---
Demographics + + + | Address | [address] | | | [place] [address] | + + + | Home Phone [...] Providers + +------+ + | Care Sales Assoc Name | Role | Phone | + [...] + + | 06/17/ | Telephone | [facility] | Flores, | Other | | 2018 | | CARDIOLOGY [address] | Georgina JEWELRY DRILL OPERATOR [address] | | | | | [place], | [place], | | | | | [place] [address] | [place] [address] | | | | | [phone] | [phone] | | | | | | | [...] [place] | | | | | | [address] | | | | | | | | +--------+---------+ + + + | 11/24/ | Office | Cardiology | [place], | | | 2019 | Visit | | SINDHU Erickson [address] | | | | | | [place], | | | | | | [place] [address] | | | | | | [phone] | | | | | | | [...]
--- OUTSIDE RECORDS SUMMARY | ~2019-01-15 | XMS | Encounter Summary ---
Demographics + + + | Address | [address] | | | [place] [address] | + + + | Home Phone [...] Team Providers + +------+ + | Care Stator Winder Name | Role | Phone | [...] + | 07/25/ | Documentati | [facility] | Kathi Soto, | No Show | | 2017 | on | MED CTR SPEECH | Speech Pathologist | | | | | THERAPY [address] | | | | | | [place], | | | | | | [place] [address] | | | | | | [phone] | | | +--------+ + + + [...] Speech Pathologist - 07/25/2016 1:58 PM [facility] [address] [place] [address] Cancellation/No Show Date: 07/25/2016 Patient Information Patient [...] | | | | | | [place] [address] | | | | | | [phone] | | | | | | | | +--------+---------+ + + + documented as of this encounter Visit Diagnoses Not on filedocumented in this encounter"
--- OUTSIDE RECORDS SUMMARY | ~2019-01-15 | XMS | Encounter Summary ---
Demographics + + + | Address | [address] | | | [place] [address] | + + + | Home Phone [...] Team Providers + +------+ + | Care Swimming Pool Serviceperson Name | Role | Phone | + [...] Alonso MD | | | | | [place], | | | | | | [place] [address] | | | | | | [phone] | | | +--------+--------+ + + + [...] [place] | | | | | | [address] | | | | | | | | +--------+---------+ + + + | 11/24/ | Office | Cardiology | [place], | | | 2019 | Visit | | SINDHU Erickson [address] | | | | | | [place] | | | | | | [place] [address] | | | | | | [phone] | | | | | | | | +--------+---------+ + + + documented as of this encounter Visit Diagnoses Not on filedocumented in this encounter"
--- OUTSIDE RECORDS SUMMARY | ~2019-01-15 | XMS | Encounter Summary ---
Demographics + + + | Address | [address] | | | [place] [address] | + + + | Home Phone [...] Team Providers + +------+ + | Care Advanced Registered Nurse Name | Role | Phone | [...] emphysema type (HCC) | | | | [place], | [address] | (Primary Dx) | | | | [place] [address] | | | | | | [phone] | | | +--------+ + + + [...] [place] | | | | | | [address] | | | | | | | | +--------+---------+ + + + | 11/24/ | Office | Cardiology | [place], | | | 2019 | Visit | | SINDHU Erickson [address] | | | | | | [place], | | | | | | [place] [address] | | | | | | [phone] | | | | | | | [...] | | | Romi Sandoval MD [facility] | | |IMPRESSION: Spirometry is consistent [...] Kevin Sandoval MD 02/29/2016 6:30 | | |[facility] | | + + + documented in this encounter Visit Diagnoses + + | Diagnosis | + + | Pulmonary emphysema, unspecified emphysema type (HCC) - Primary | + + documented in this encounter"
--- OUTSIDE RECORDS SUMMARY | ~2019-01-15 | XMS | Encounter Summary ---
Demographics + + + | Address | [address] | | | [place] [address] | + + + | Home Phone [...] Team Providers + +------+ + | Care Linseed Oil Press Tender Name | Role | Phone [...] | | | | [facility] | [address] | [address] | | | | | EXERCISE | [place], | [place] | | | | | | [place] [address] | [place], [place] | | | | | | Phone: | [address] | | | | | | [phone] | Phone: | | | | | | Fax: | [phone] | | | | | | [phone] | Fax: | | | | | | | [phone] | +--------+--------+ + + + + Encounter Details +--------+---------+ + + + | Date | Type | Department | Care Team | Description | +--------+---------+ + + + | 06/13/ | Office | [facility] | Sharonda Delmycaitie, | Chronic obstructive | | 2017 | Visit | MED CTR CARDIAC | MD [address] | pulmonary disease, | | | | REHAB[facility] [address] [place] [place], | unspecified COPD | | | | [address] [place] | [place] [address] | type (HCC) (Primary | | | | [place] [address] | [phone] | Dx) | | | | [phone] | | | +--------+---------+ + + + [...] | | | [place] | | | | | | [address] | | | | | | | | +--------+---------+ + + + | 11/24/ | Office | Cardiology | [place], | | | 2020 | Visit | | SINDHU Erickson [address] | | | | | | [place], | | | | | | [place] [address] | | | | | | [phone] | | | | | | | | +--------+---------+ + + + documented as of this encounter Visit Diagnoses + + | Diagnosis | + + | Chronic obstructive pulmonary disease, unspecified COPD type (HCC) - Primary | + + documented in this encounter"
--- OUTSIDE RECORDS SUMMARY | ~2019-01-15 | XMS | Encounter Summary ---
Demographics + + + | Address | [address] | | | [place] [address] | + + + | Home Phone [...] Providers + +------+ + | Care Safety Specialist Name | Role | Phone | [...] | with brief | [address] | [place] | | | | n | loss of | [address] | [place], | | | | | consciousnes | [place], | [place] [address] | | | | | s | [place] [address] | Phone: | | | | | Post-concuss | Phone: | [phone] | | | | | ion vertigo | [phone] | Fax: | | | | | [phone] | Fax: | [phone] | | | | | (ICD-10-CM) | [phone] | | | | | | - [...] + + | 06/05/ | Office | [facility] | Aaron Rodriguez, | Dizziness (Primary | | 2017 | Visit | MED CTR THERAPY PT | MD [address] | Dx); Impaired | | | | OP [address] | [place] | mobility and | | | | [place] | [id number] | activities of daily | | | | [address] | | living; Concussion | | | | [phone] | Lakeshia Cleary, PT | with brief (less | | | | | [address] | than one hour) loss | | | | | [place] | of consciousness; | | | | | [address] | Intractable acute | | | | [...] might be different from t he original. [facility] THERAPY PT OP [address] [place] [address] Physical Therapy Daily Treatment Note Date: 06/05/2016 [...] [place] | | | | | | [address] | | | | | | | | +--------+---------+ + + + | 11/24/ | Office | Cardiology | [place], | | | 2020 | Visit | | SINDHU Erickson [address] | | | | | | [place], | | | | | | [place] [address] | | | | | | [phone] | | | | | | | [...]
--- OUTSIDE RECORDS SUMMARY | ~2019-01-15 | XMS | Encounter Summary ---
Demographics + + + | Address | [address] | | | [place] [address] | + + + | Home Phone [...] + +------+ + | Care Senior Sales Engineer Name | Role | Phone | + +------+ + PCP | Unavailable | + +------+ + Encounter Details +--------+ + + + + | Date | Type | Department | Care Team | Description | +--------+ + + + + | 10/09/ | Hospital | [facility] | Avi, Guru Garzon, | | | 2010 - | Encounter | MED CTR EMERGENCY | MD [address] | | | | | CENTER [address] | [facility] [place] | | | 10/10/ | | [place], [place] | [place] [address] | | | 2010 | | [address] | [phone] | | | | | [phone] | | | +--------+ + + + [...] | | | | | | [place] [address] | | | | | | [phone] | | | | | | | [...] At | + + + | [facility] Diagnostic Imaging Department | [facility] | | [address] [facility] | [facility] | | NONCONTRAST HEAD CT, 2330 HOURS, [...] | | | Transcribed Date/Time: 10/10/2010 11:50 Educational Technician: | | | <Electronically Signed by Elías Cardoso MD> 10/11/10 0821 | | + + + + + | Procedure Note | + + | Reed, Rad Conversion - 04/02/2013 3:36 PM [facility] | | Diagnostic Imaging Department [address] [place] [address] | | NONCONTRAST HEAD CT, 2330 HOURS, [...] 11:33 | |Transcribed Date/Time: 10/10/2010 11:50 | |Educational Technician: | |<Electronically Signed by Elías Cardoso MD> [...]
--- OUTSIDE RECORDS SUMMARY | ~2019-01-15 | XMS | Encounter Summary ---
Demographics + + + | Address | [address] | | | [place] [address] | + + + | Home Phone [...] Team Providers + +------+ + | Care Electro Mechanical Solar Technician Name | Role | Phone | + +------+ + PCP | Unavailable | + +------+ + Encounter Details +--------+ + + + + | Date | Type | Department | Care Team | Description | +--------+ + + + + | 04/13/ | Hospital | [facility] | Lencho Goss MD | | | 2010 | Encounter | MED CTR GENERIC OP | [address] [place], [place] | | | | | CONV DEPT [address] | [address] [place], [place] | | | | | [place], | [address] | | | | | [place] [address] | | | | | | [phone] | | | +--------+ + + + [...] [place] | | | | | | [address] | | | | | | | | +--------+---------+ + + + | 11/24/ | Office | Cardiology | [place], | | | 2019 | Visit | | SINDHU Erickson [address] | | | | | | [place], | | | | | | [place] [address] | | | | | | [phone] | | | | | | | | +--------+---------+ + + + documented as of this encounter Visit Diagnoses Not on filedocumented in this encounter"
--- OUTSIDE RECORDS SUMMARY | ~2019-01-15 | XMS | Encounter Summary ---
Demographics + + + | Address | [address] | | | [place] [address] | + + + | Home Phone [...] Providers + +------+ + | Care Qa Analyst Name | Role | Phone | + +------+ + PCP | Unavailable | + +------+ + Encounter Details +--------+ + + + + | Date | Type | Department | Care Team | Description | +--------+ + + + + | 05/11/ | Hospital | [facility] | Berna Vizcaino MD | Special screening | | 2010 | Encounter | CONVERSION DEP [address] | [address] | for osteoporosis | | | | [address] | [place] [address] | | | | | [place], [place] | [phone] | | | | | [address] | | | | | | [phone] | | | +--------+ + + + [...] | | | | | | [place] [address] | | | | | | [phone] | | | | | | | [...] Performed At | + + + | [facility] [address] Ph: | | | Patient Name: JADYN SCHMITZ Date of : | | | 1965 Medical Record: [id number] Account: [id number] | | | Exam Date/Time: 05/11/2010 11:30 [...] was scanned in the anterior projection and edemwl-rr-lrfmxnmh | | | values were drawn about the vertebral segments of L1 through L4 at | | | the levels where accurate assessment was possible. A bone mineral | | | analysis was also performed on the left hip with xxaqlj-xh-zqvxncfv | | | areas including the femoral [...] - 10/17/2018 5:21 PM PDT | | [facility] | | [facility] [address] | | | | | | Patient Name: JADYN SCHMITZ W | | Date of : 1965 | | Medical Record: [id number] | | Account: [id number] | | | | | | Exam [...] | scanned in the anterior projection and avnlne-nr-fjtuxoch values were drawn | | about the vertebral segments of L1 through L4 at the levels where accurate | | assessment was possible. A bone mineral analysis was also performed on the | | left hip with xfdjck-ck-kfpewciw areas including the femoral neck measured. | [...]
--- OUTSIDE RECORDS SUMMARY | ~2019-01-15 | XMS | Encounter Summary ---
Demographics + + + | Address | [address] | | | [place] [address] | + + + | Home Phone [...] Team Providers + +------+ + | Care Dietary Manager Name | Role | Phone | + +------+ + PCP | Unavailable | + +------+ + Encounter Details +--------+ + + + + | Date | Type | Department | Care Team | Description | +--------+ + + + + | 04/21/ | Hospital | [facility] | Nestor Martinez, | | | 2010 | Encounter | MED CTR EMERGENCY | [address] | | | | | CENTER [address] | [place], [place] | | | | | [place] | [address] | | | | | [address] | | | | | | [phone] | | | +--------+ + + + [...] [place] | | | | | | [id number] | | | | | | | | +--------+---------+ + + + | 11/24/ | Office | Cardiology | [place], | | | 2019 | Visit | | SINDHU Erickson [address] | | | | | | [place], | | | | | | [place] [address] | | | | | | [phone] | | | | | | | | +--------+---------+ + + + documented as of this encounter Visit Diagnoses Not on filedocumented in this encounter"
--- OUTSIDE RECORDS SUMMARY | ~2019-01-15 | XMS | Encounter Summary ---
Demographics + + + | Address | [address] | | | [place] [address] | + + + | Home Phone [...] Team Providers + +------+ + | Care Rounding Machine Tender Name | Role | Phone [...] + | 06/25/ | Clinical | [facility] | Andriy Weber | Bladder pain | | 2018 | Support | [address] | MD [address] | (Primary Dx) | | | | [place], [place] | [facility] | | | | | [address] | [place] [address] | | | | | [phone] | [phone] | | | | | | | [...] Units Admin Date 06/25/2017 Action Given Dose 67988 Units Route Irrigation Administered By Loraine Hawkins [...] [place] | | | | | | [address] | | | | | | | | +--------+---------+ + + + | 11/24/ | Office | Cardiology | [place], | | | 2019 | Visit | | SINDHU Erickson [address] | | | | | | [place], | | | | | | [place] [address] | | | | | | [phone] | | | | | | | [...]
--- OUTSIDE RECORDS SUMMARY | ~2019-01-15 | XMS | Encounter Summary ---
Demographics + + + | Address | [address] | | | [place] [address] | + + + | Home Phone [...] Team Providers + +------+ + | Care Activity Therapy Teacher Name | Role | Phone | + +------+ + PCP | Unavailable | + +------+ + Encounter Details +--------+ + + + + | Date | Type | Department | Care Team | Description | +--------+ + + + + | 02/27/ | Hospital | [facility] | Ozzy Delcid, | | | 2010 | Encounter | MED CTR XRAY [address] | [address] | | | | | [place] | [place], [place] | | | | | [place] [address] | [address] | | | | | [phone] | | | +--------+ + + + [...] [place] | | | | | | [address] | | | | | | | | +--------+---------+ + + + | 11/24/ | Office | Cardiology | [place], | | | 2019 | Visit | | SINDHU Erickson [address] | | | | | | [place], | | | | | | [place] [address] | | | | | | [phone] | | | | | | | | +--------+---------+ + + + documented as of this encounter Visit Diagnoses Not on filedocumented in this encounter"
--- OUTSIDE RECORDS SUMMARY | ~2019-01-15 | XMS | Encounter Summary ---
Demographics + + + | Address | [address] | | | [place] [address] | + + + | Home Phone [...] [address] | | | | | [place], | [place] | | | | | [place] [address] | [address] | | | | | [phone] | | | +--------+--------+ + + + [...] [place] | | | | | | [id number] | | | | | | | | +--------+---------+ + + + | 11/24/ | Office | Cardiology | [place], | | | 2019 | Visit | | SINDHU Erickson [address] | | | | | | [place] | | | | | | [place] [address] | | | | | | [phone] | | | | | | | | +--------+---------+ + + + documented as of this encounter Visit Diagnoses Not on filedocumented in this encounter"
--- OUTSIDE RECORDS SUMMARY | ~2019-01-15 | XMS | Encounter Summary ---
Demographics + + + | Address | [address] | | | [place] [address] | + + + | Home Phone [...] Team Providers + +------+ + | Care Dielectric Embossing Machine Operator Name | Role | Phone [...] Provider Unknown | | | | | [place], [place] | [phone] | | | | | [address] | | | | | | [phone] | | | +--------+ + + + [...] | | | | [address] [facility] | | | | | | [address] | | | | | | | | +--------+---------+ + + + | 11/24/ | Office | Cardiology | [place], | | | 2019 | Visit | | SINDHU Erickson [address] | | | | | | [place], | | | | | | [place] [address] | | | | | | [phone] | | | | | | | [...]
--- OUTSIDE RECORDS SUMMARY | ~2019-01-15 | XMS | Encounter Summary ---
Demographics + + + | Address | [address] | | | [place] [address] | + + + | Home Phone [...] Team Providers + +------+ + | Care Stenographic Court Reporter Name | Role | Phone | + [...] [address] | | | | | [place], | [place] | | | | | [place] [address] | [address] | | | | | [phone] | | | +--------+--------+ + + + [...] [place] | | | | | | [address] | | | | | | | | +--------+---------+ + + + | 11/24/ | Office | Cardiology | [place], | | | 2019 | Visit | | SINDHU Erickson [address] | | | | | | [place], | | | | | | [place] [address] | | | | | | [phone] | | | | | | | | +--------+---------+ + + + documented as of this encounter Visit Diagnoses + + | Diagnosis | + + | COPD (chronic obstructive pulmonary disease) (HCC) - Primary Chronic airway | | obstruction, not elsewhere classified | + + documented in this encounter"
--- OUTSIDE RECORDS SUMMARY | ~2019-01-15 | XMS | Encounter Summary ---
Demographics + + + | Address | [address] | | | [place] [address] | + + + | Home Phone [...] Providers + +------+ + | Care Automobile Spring Repairer Name | Role | Phone | + +------+ + PCP | Unavailable | + +------+ + Encounter Details +--------+ + + + + | Date | Type | Department | Care Team | Description | +--------+ + + + + | 06/09/ | Hospital | [facility] | [place], | | | 2009 | Encounter | MED CTR EMERGENCY | Ozzy Kim MD [address] | | | | | [place] [address] | [address] [facility] | | | | | [place], [place] | [place] [address] | | | | | [address] | [phone] | | | | | [phone] | | | +--------+ + + + [...] [place] | | | | | | [id number] | | | | | | | | +--------+---------+ + + + | 11/24/ | Office | Cardiology | [place], | | | 2019 | Visit | | SINDHU Erickson [address] | | | | | | [place] | | | | | | [place] [address] | | | | | | [phone] | | | | | | | | +--------+---------+ + + + documented as of this encounter Visit Diagnoses Not on filedocumented in this encounter"
--- OUTSIDE RECORDS SUMMARY | ~2019-01-15 | XMS | Encounter Summary ---
Demographics + + + | Address | [address] | | | [place] [address] | + + + | Home Phone [...] Providers + +------+ + | Care Evaluation Manager Name | Role | Phone | [...] | RN | | | | | [place], | | | | | | [place] [address] | | | | | | [phone] | | | +--------+ + + + [...] | | | | [facility] [address] [facility] | | | | | | [address] | | | | | | | | +--------+---------+ + + + | 11/24/ | Office | Cardiology | [place], | | | 2020 | Visit | | SINDHU Erickson [address] | | | | | [place], | | | | | | [place] [address] | | | | | | [phone] | | | | | | | | +--------+---------+ + + + documented as of this encounter Visit Diagnoses + + | Diagnosis | + + | GARRY (obstructive sleep apnea) - Primary Obstructive sleep apnea (adult) (pediatric) | + + documented in this encounter"
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
--- OUTSIDE RECORDS SUMMARY | ~2019-01-15 | XMS | Encounter Summary ---
Demographics + + + | Address | [address] | | | [place] [address] | + + + | Home Phone [...] Providers + +------+ + | Care Analytical Technician Name | Role | Phone | + +------+ + | Juan Cherry DO | PCP | | + +------+ + Encounter Details +--------+ + + + + | Date | Type | Department | Care Team | Description | +--------+ + + + + | 01/20/ | Hospital | [facility] | Guru Cárdenas, | | | 2011 | Encounter | MED CTR EMERGENCY | [address] | | | | | CENTER [address] | [facility] [place] | | | | | [place], [place] | [place] [address] | | | | | [address] | [phone] | | | | | [phone] | | | | | | | Ozzy Aponte | | | | | | MD Delio [address] | | | | | | [address] [place] | | | | | | [place] [address] | | | | | | [phone] | | | | | | | [...] [place] | | | | | | [address] | | | | | | | | +--------+---------+ + + + | 11/24/ | Office | Cardiology | [place], | | | 2019 | Visit | | SINDHU Erickson [address] | | | | | | [place] | | | | | | [place] [address] | | | | | | [phone] | | | | | | | [...] Performed At | + + + | [facility] | [place] | | Department [address] [facility] | [facility] | | [ rep [address]] [ rep [facility] | | [facility]] Signed | - IMAGING | | | | | Patient Name: JADYN SCHMITZ | | | Physician: MARY : 1965 Age: 47 Sex: F Unit | | | #: [id number] Exam Date: 01/21/12 Location: | | | EDU Report #: [id number] Page: | | | %(RAD)RES..mtdd.print.filter("pg") of %(RAD) | | | RES..mtdd.print.filter("tpg") | | | | | | Accession Number: [id number] | | | RIGHT FOOT CLINICAL HISTORY: [...] Transcribed Date/Time: 01/21/2012 09:32 | | | Reducing Machine Operator: ChrisARELIS <<Signature on File>> | | | | | | Cesar Ren MD01/21/12 1490 <Electronically signed by | | | Cesar Ren MD> Cesar Ren MD 01/21/12 | | | 0900 Reducing Machine Operator: Neal Nsbfjegdhcsld89/27/12 0932 | | | | | + + + + + + + + | Performing | Address | City/State/Zipcode | Phone Number | | Organization | | | | + + + + + | [facility] | [address] | [place] | [phone] | | [facility] | | [address] | | | - IMAGING | | | | + + + + + documented in this encounter Visit Diagnoses Not on filedocumented in this encounter
--- OUTSIDE RECORDS SUMMARY | ~2019-01-15 | XMS | Encounter Summary ---
Demographics + + + | Address | [address] | | | [place] [address] | + + + | Home Phone [...] Providers + +------+ + | Care Pipe Turner Name | Role | Phone | [...] | | | | CENTER [address] | | carried out because | | | | [place] | | of patient's | | | | [address] | | decision (Primary | | | | [phone] | | Dx) | +--------+ + + [...] [place] | | | | | | Jose [...] | | | | | | [place] [address] | | | | | | [phone] | | | | | | | [...] -------- | | | ---- 08/22/2013 18:46 [facility] | | | [facility] Emergency COPD Exacerbation; | | | 08/13/2013 20:38 [facility] | | | Emergency Shortness of Breath; | | | | | | COPD Exasperation; | | | | | | Obstructive chronic bronchitis with (acute) exacerbation; 07/18/2013 | | | 12:06 [facility] Emergency Arm | | | Laceration; | | | Open wound of upper | | | arm, without mention of complication; | | | | | | cut on Lft arm; 07/14/2013 00:15 [facility] | | | [facility] Emergency Shortness of Breath; | | | | | | Chronic obstructive asthma with (acute) | | | exacerbation; 06/19/2013 21:06 [facility] | | | [facility] Obstructive chronic bronchitis with (acute) | | | exacerbation; | | | Shortness of | | | Breath; | | | diff breathing; | | | 06/19/2013 11:03 [facility] | | | Emergency COPD exasperation; 05/23/2013 19:52 [facility] | | | [facility] Emergency Obstructive chronic | | | bronchitis with (acute) exacerbation; | | | | | | Obstructive chronic bronchitis with (acute) exacerbation; | | | | | | sob; | | | | | | Shortness of Breath; VISIT COUNT (1 YR.) Visits | | | Medicaid NE Dx Location ------ | | | --------- 13 0 [facility] | | | [facility] Total | | | Note: Visits indicate total known visits. Medicaid [place] Dx are the | | | number of primary diagnoses on the [facility]'s non-emergent dx list. | | [...]
--- OUTSIDE RECORDS SUMMARY | ~2019-01-15 | XMS | Encounter Summary ---
Demographics + + + | Address | [address] | | | [place] [address] | + + + | Home Phone [...] Team Providers + +------+ + | Care Stevedore Dock Name | Role | Phone | [...] | | | | | | [place] [address] | | | | | | [phone] | | | +--------+ + + + [...] [place] | | | | | | [address] | | | | | | | | +--------+---------+ + + + | 11/24/ | Office | Cardiology | [place], | | | 2019 | Visit | | SINDHU Erickson [address] | | | | | | [place] | | | | | | [place] [address] | | | | | | [phone] | | | | | | | | +--------+---------+ + + + documented as of this encounter Visit Diagnoses Not on filedocumented in this encounter"
--- OUTSIDE RECORDS SUMMARY | ~2019-01-15 | XMS | Encounter Summary ---
Demographics + + + | Address | [address] | | | [place] [address] | + + + | Home Phone [...] Team Providers + +------+ + | Care Marine Animal Trainer Name | Role | Phone | + +------+ + PCP | Unavailable | + +------+ + Encounter Details +--------+ + + + + | Date | Type | Department | Care Team | Description | +--------+ + + + + | 03/23/ | Hospital | [facility] | Rocky Rodriguez | | | 2010 | Encounter | MED CTR EMERGENCY | MD Kyler [address] | | | | | CENTER [address] | [address] [facility] | | | | | [place], [place] | [place] [address] | | | | | [address] | [phone] | | | | | [phone] | | | +--------+ + + + [...] [place] | | | | | | [address] | | | | | | | | +--------+---------+ + + + | 11/24/ | Office | Cardiology | [place], | | | 2019 | Visit | | SINDHU Erickson [address] | | | | | | [place], | | | | | | [place] [address] | | | | | | [phone] | | | | | | | | +--------+---------+ + + + documented as of this encounter Visit Diagnoses Not on filedocumented in this encounter"
--- OUTSIDE RECORDS SUMMARY | ~2019-01-15 | XMS | Encounter Summary ---
Demographics + + + | Address | [address] | | | [place] [address] | + + + | Home Phone [...] W | | | | | [place], | [place], | | | | | [place] [address] | [place] [address] | | | | | [phone] | [phone] | | | | | | | [...] | | | | | | [place] [address] | | | | | | [phone] | | | | | | | | +--------+---------+ + + + documented as of this encounter Visit Diagnoses Not on filedocumented in this encounter"
--- OUTSIDE RECORDS SUMMARY | ~2019-01-15 | XMS | Encounter Summary ---
Demographics + + + | Address | [address] | | | [place] [address] | + + + | Home Phone [...] Providers + +------+ + | Care Hog Cutter Name | Role | Phone | [...] + + | 09/06/ | Telephone | [facility] | Kevin Sandoval, | Other (increased | | 2014 | | PULMONARY [address] | MD [address] | shortness of breath) | | | | [place], | [place], [place] | | | | | [place] [address] | [address] | | | | | [phone] | | | +--------+ + + + [...] [place] | | | | | | [address] | | | | | | | | +--------+---------+ + + + | 11/24/ | Office | Cardiology | [place], | | | 2019 | Visit | | SINDHU Erickson [address] | | | | | | [place], | | | | | | [place] [address] | | | | | | [phone] | | | | | | | | +--------+---------+ + + + documented as of this encounter Visit Diagnoses Not on filedocumented in this encounter"
--- OUTSIDE RECORDS SUMMARY | ~2019-01-15 | XMS | Encounter Summary ---
Demographics + + + | Address | [address] | | | [place] [address] | + + + | Home Phone [...] Team Providers + +------+ + | Care Noise Abatement Engineer Name | Role | Phone | + +------+ + PCP | Unavailable | + +------+ + Encounter Details +--------+ + + + + | Date | Type | Department | Care Team | Description | +--------+ + + + + | 10/15/ | Hospital | [facility] | Berna Vizcaino MD | Dizziness; | | 2010 | Encounter | CONVERSION DEP [address] | [address] | [place]; | | | | [address] | [place] [address] | Diplopia | | | | [place], [place] | [phone] | | | | | [address] | | | | | | [phone] | | | +--------+ + + + [...] [place] | | | | | | [address] | | | | | | | | +--------+---------+ + + + | 11/24/ | Office | Cardiology | [place], | | | 2019 | Visit | | SINDHU Erickson [address] | | | | | | [place], | | | | | | [place] [address] | | | | | | [phone] | | | | | | | [...] EXTERNAL LAB | | Testing performed at [facility];[address] [place] [address];[place] [address] APPEARANCE | | | CLEAR Testing performed at | | | [facility];[address] [place] [address];[place] [address] Tube Number, CSF | | | 1 Testing performed at [facility] [address] | | | [address]vd;[place] [address] CSF RBC | | | 0 Testing performed at [facility];[address] [place] [address];[place], [place] | | | [address] CSF WBC 0 | | | Testing performed at [facility];[address] [place] [address];[place] [address] | | + + + + +---------+ [...] Performed At | + + + | [facility] [place] [address] Ph: | | | Patient Name: JADYN SCHMITZ Date of : | | | 1965 Medical Record: [id number] Account: [id number] | | | Exam Date/Time: 10/15/2010 10:15 [...] this patient in the | | | Truck [employer] holding room. The patient was awake, alert, [...] - 10/17/2018 5:21 PM PDT | | [facility] | | 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 The patient was awake, | [...] EXTERNAL LAB | | Testing performed at [facility];[address] [place] [address];[place] [address] VIRAL | | | CULTURE ACCESSION NO. | | | [id number] SPECIMEN SOURCE | | | CEREBROSPINAL FLUID RESULT | | | PRELIMINARY: NO VIRUS ISOLATED AT 7 | | | DAYS. | | | FINAL: NO VIRUS ISOLATED AT 14 DAYS. Testing performed at | | | [address] [address] VIRAL CULTURE,STATUS | | | REPORT STATUS FINAL | | | 10/30/2010 Testing performed at [address] | | | [address] | | + + + + +---------+ [...] | Testing performed at | | | [facility];[address] [facility];[place] [address] GRAM STAIN | | | NO CELLS OR ORGANISMS SEEN | | | Testing performed at [facility], [address] [place] [address] | | | [place] [address] CULTURE | | | NO GROWTH 3 DAYS | | | Testing performed at [facility], [address] [place] [address], [place], | | | [place] [address] REPORT STATUS 10/18/2010 | | | FINAL [...] | EXTERNAL LAB | | performed at [facility];[address] [place] [address];[place] [address] | | + + + + +---------+ [...] EXTERNAL LAB | | Testing performed at [facility];[address] [place] [address];[place] [address] | | + + + + +---------+ [...]
--- OUTSIDE RECORDS SUMMARY | ~2019-01-15 | XMS | Encounter Summary ---
Demographics + + + | Address | [address] | | | [place] [address] | + + + | Home Phone [...] Team Providers + +------+ + | Care Scrubber Machine Tender Name | Role | Phone | + +------+ + | Ozzy Delcid MD | PCP | | + +------+ + Encounter Details +--------+ + + + + | Date | Type | Department | Care Team | Description | +--------+ + + + + | 03/29/ | Hospital | [facility] | | | | 2011 | Encounter | MED CTR LABORATORY | | | | | | [address] | | | | | | [place] | | | | | | [address] | | | | | | [phone] | | | +--------+ + + + [...] | [address] [facility] [place] | | | | | | [address] | | | | | | | | +--------+---------+ + + + | 11/24/ | Office | Cardiology | [place], | | | 2019 | Visit | | SINDHU Erickson [address] | | | | | | [place], | | | | | | [place] [address] | | | | | | [phone] | | | | | | | [...] + | [facility] | [address] | [place], [place] | [phone] | | [facility] | | [address] | | | - LABORATORY | | | | + + + + + | [facility] | [address] | [place], [place] | | | [facility] | | [address] | | | - LABORATORY | | [...] [place] | | | | | | [address] CLIA: [id number] | | | | | | | | | | + + + + + + + + | Specimen | + + | | + + + + + + + | Performing | Address | City/State/Zipcode | Phone Number | | Organization | | | | + + + + + | [facility] | [address] | [place], [place] | [phone] | | [facility] | | [address] | | | - LABORATORY | | | | + + + + + | [facility] | [address] | [place], [place] | | | [facility] | | [address] | | | - LABORATORY | | [...] | performed on the | uIU/mL | [facility] | | | | Blake [address] Access [...] + | [facility] | [address] | [place] | [phone] | | [facility] | | [address] | | | - LABORATORY | | | | + + + + + | [facility] | [address] | [place] | | | [facility] | | [address] | | | - LABORATORY | | [...] + | [facility] | [address] | [place] | [phone] | | [facility] | | [address] | | | - LABORATORY | | | | + + + + + | [facility] | [address] | [place], [place] | | | [facility] | | [address] | | | - LABORATORY | | [...] + | [facility] | [address] | [place] | [phone] | | [facility] | | [address] | | | - LABORATORY | | | | + + + + + | [facility] | [address] | [place] | | | [facility] | | [address] | | | - LABORATORY | | | | + + + + + documented in this encounter Visit Diagnoses Not on filedocumented in this encounter"
--- OUTSIDE RECORDS SUMMARY | ~2019-01-15 | XMS | Encounter Summary ---
Demographics + + + | Address | [address] | | | [place] [address] | + + + | Home Phone [...] Providers + +------+ + | Care Agricultural Loan Officer Name | Role | Phone | [...] | | | | [facility] | [address] | [address] | | | | | EXERCISE | [place], | [place] | | | | | | [place] [address] | [place], [place] | | | | | | Phone: | [address] | | | | | | [phone] | Phone: | | | | | | Fax: | [phone] | | | | | | [phone] | Fax: | | | | | | | [phone] | +--------+--------+ + + + + Encounter Details +--------+---------+ + + + | Date | Type | Department | Care Team | Description | +--------+---------+ + + + | 06/13/ | Office | [facility] | Sharonda Delmycaitie, | Chronic obstructive | | 2017 | Visit | MED CTR CARDIAC | MD [address] | pulmonary disease, | | | | REHABIL[facility]ATION [address] [place], | unspecified COPD | | | | [address] [place] [place] | [place] [address] | type (HCC) (Primary | | | | [place] [address] | [phone] | Dx) | | | | [phone] | | | +--------+---------+ + + + [...] Extra emotional support.Bisi lacey signed by Desean Crhis at 06/13/2016 4:12 PM PDTdocumented in this encounter Plan of Treatment +--------+---------+ + + + | Date | Type | Specialty | Care Team | Description | +--------+---------+ + + + | 03/01/ | Office | Pulmonology | Mukul Clark MD | | | 2019 | Visit | | [address] | | | | | | [place] | | | | | | [address] | | | | | | | | +--------+---------+ + + + | 11/24/ | Office | Cardiology | [place], | | | 2020 | Visit | | SINDHU Erickson [address] | | | | | | [place], | | | | | | [place] [address] | | | | | | [phone] | | | | | | | | +--------+---------+ + + + documented as of this encounter Visit Diagnoses + + | Diagnosis | + + | Chronic obstructive pulmonary disease, unspecified COPD type (HCC) - Primary | + + documented in this encounter"
--- OUTSIDE RECORDS SUMMARY | ~2019-01-15 | XMS | Encounter Summary ---
Demographics + + + | Address | [address] | | | [place] [address] | + + + | Home Phone [...] + + | 05/28/ | Office | [facility] | Brian Miranda | Sprain of chest | | 2013 | Visit | [facility] | MD [address] | abigail garcia | | | | [address] | [place] [facility] | encounter (Primary | | | | [address] [facility] | [place] [address] | Dx); Place of | | | | [place], [place] | [phone] | occurrence, | | | | [address] | | industrial places | | | | [phone] | | and premises | +--------+---------+ + [...] - 05/28/2013 8:40 AM PDTClaim number: [id number] Date of injury: 04/05/2013 Employer: [employer] [...] as recor ded by the medical office technician was a blood pressure of 82/60 and [...] [place] | | | | | | [id number] | | | | | | | | +--------+---------+ + + + | 11/24/ | Office | Cardiology | [place], | | | 2019 | Visit | | SINDHU Erickson [address] | | | | | | [place] | | | | | | [place] [address] | | | | | | [phone] | | | | | | | | +--------+---------+ + + + documented as of this encounter Visit Diagnoses + + | Diagnosis | + + | Sprain of chest wall, subsequent encounter - Primary | + + | Place of occurrence, industrial places and premises | + + documented in this encounter
--- OUTSIDE RECORDS SUMMARY | ~2019-01-15 | XMS | Encounter Summary ---
Demographics + + + | Address | [address] | | | [place] [address] | + + + | Home Phone [...] Team Providers + +------+ + | Care Skinner Pelts Name | Role | Phone | + [...] | | | | unspecified | | [address] | | | | | laterality | | Phone: | | | | | Primary | | [phone] | | | | | localized | | Fax: | | | | | osteoarthros | | [phone] | | | | | is of hand, | | | | | | | unspecified | | | | | | | laterality | | | | | | | [[id number] | | | | | | | Procedures | | | | | | | ME REPAIR | | | | | | [...] tendon | | | | [address] | [place], [place] | interposition | | | | [place], [place] | [address] | | | | | [address] | [phone] | | | | | [phone] | | | +--------+---------+ + + + [...] what medicines and drugsyou take. This includes jnih-ybx-kfo nter medicines, herbs, supplements, alcohol or other [...] adam p you safe. Date Last Reviewed: 01/25/201619996170-1620 [employer] [facility]. [address] [place] [address]. All righ ts reserved. This information is not intended as a substitute for professional medical care. Always follow your healthcare professional's instructions. [facility] Post-op Instructions - Thumb Surgery The following instructions are meant to guide you following surgery until your first post-o perative visit 7-12 days later. For any problems or questions, please call our office at [phone], Friday through Friday, 9:00 am - 5:00 [...] that you may have received from the [facility], advice from friends, family members, ecclesiastical leaders, grocery store clerks, fox lee, Anu, Dr. Jain, Dr. Weinstein, sports heroes, etc. If unsure, please call our office. Thank you, Jesus Brady D.O. [facility] Orthopedics [address] [place] [address] Your post op appointment is scheduled for Friday06/29/18 at 9:15am. Please check in at 8:45 am for X-rays at the [facility]. documented in this encounter Medications [...] [place] | | | | | | [address] | | | | | | | | +--------+---------+ + + + | 11/24/ | Office | Cardiology | [place], | | | 2019 | Visit | | SINDHU Erickson [address] | | | | | | [place], | | | | | | [place] [address] | | | | | | [phone] | | | | | | | [...] [address] | [place] | [phone] | | [facility] | | [address] | | | - LABORATORY | | [...]
--- OUTSIDE RECORDS SUMMARY | ~2019-01-15 | XMS | Encounter Summary ---
Demographics + + + | Address | [address] | | | [place] [address] | + + + | Home Phone [...] Providers + +------+ + | Care Production Tool Engineer Name | Role | Phone | [...] + + | 08/26/ | Emergency | [facility] | Ozzie Hayes | COPD (chronic | | 2015 | | MED CTR EMERGENCY | MD Ran [address] | obstructive | | | | [place] [address] | [address] | pulmonary disease) | | | | [place] | [place] [address] | (FORMERLY [facility]) (Primary Dx) | | | | [address] | [phone] | | | | | [phone] | | | +--------+ + + + [...] sent through Care Everywhere.COPD, WHAT IS ( GUYANESE)documented in this encounter Medications at Time of [...] | | | | | | [facility]. | | | | | | | [...] [place] | | | | | | [id number] | | | | | | | | +--------+---------+ + + + | 11/24/ | Office | Cardiology | [place], | | | 2019 | Visit | | SINDHU Erickson [address] | | | | | | [place], | | | | | | [place] [address] | | | | | | [phone] | | | | | | | [...] -------- ---- | | | 08/26/2014 04:46 [facility] | | | Center Emergency -Difficulty Breathing 07/10/2014 13:41 | | | [facility] Emergency 0. | | | SYNCOPAL EPISODE VISIT COUNT (1 YR.) Visits [place] | | | Dx Location ------ --------- 2 | | | 0 [facility] 3 | | | 0 [facility] 5 | | | 0 Total Note: Visits indicate | | | total known visits. [place] Dx are the number of primary diagnoses | | | on the [facility]'s non-emergent dx list. | | | | | | --- BALWINDER has no Care Guidelines for this patient. [place] | | | Prescription Review PDMP Report [...]
--- OUTSIDE RECORDS SUMMARY | ~2019-01-15 | XMS | Encounter Summary ---
Demographics + + + | Address | [address] | | | [place] [address] | + + + | Home Phone [...] Team Providers + +------+ + | Care Neuroscience Director Na Name | Role | Phone | + [...] shortnes of breath) | | | | [place], | | | | | | [place] [address] | | | | | | [phone] | | | +--------+ + + + [...] [place] | | | | | | [address] | | | | | | | | +--------+---------+ + + + | 11/24/ | Office | Cardiology | [place], | | | 2019 | Visit | | SINDHU Erickson W | | | | | | [place] | | | | | | [place] [address] | | | | | | [phone] | | | | | | | | +--------+---------+ + + + documented as of this encounter Visit Diagnoses Not on filedocumented in this encounter"
--- OUTSIDE RECORDS SUMMARY | ~2019-01-15 | XMS | Encounter Summary ---
Demographics + + + | Address | [address] | | | [place] [address] | + + + | Home Phone [...] Team Providers + +------+ + | Care Ndt Inspector Name | Role | Phone | [...] | | MD Jared | [address] | | | | | Pericarditis | [address] | [place], | | | | | Procedures | [address] | [place] | | | | | ECHO | [place], | [address] | | | | | Complete | [place] [address] | Phone: | | | | | | Phone: | [phone] | | | | | | [phone] | Fax: | | | | | | Fax: | [phone] | | | | | | [phone] | | +--------+--------+ + + + + [...] | | MD Jared | [address] | | | | | Pericarditis | [address] | [place], | | | | | Procedures | [address] | [place] | | | | | ECHO | [place], | [address] | | | | | Complete | [place] [address] | Phone: | | | | | | Phone: | [phone] | | | | | | [phone] | Fax: | | | | | | Fax: | [phone] | | | | | | [phone] | | +--------+--------+ + + + + Encounter Details +--------+ + + + + | Date | Type | Department | Care Team | Description | +--------+ + + + + | 01/14/ | Hospital | [facility] | Jared Mcdonough, | Pericarditis | | 2013 | Encounter | MED CTR ECHO [address] | [address] | | | | | [place] | [address] [place], | | | | | [place] [address] | [place] [address] | | | | | [phone] | [phone] | | | | | | | [...] | | | | | | [place] [address] | | | | | | [phone] | | | | | | | [...] At | + + + | [facility] ECHOCARDIOGRAM REPORT | [place] | | STUDY DATE: 01/14/2014 PATIENT NAME: Rosario Malik | [facility] | | : 1965 PCP: Juan Cherry, [facility] | | CLINICAL HISTORY/DIAGNOSIS: Pericarditis/pericardial [...] | | | Jared Mcdonough MD [facility] 01/14/2014 8:40 Nutritional Services Host: | | | Charmaine Ibarra RDMS | | + + + + + | Procedure Note | + + | Jared Mcdonough MD - 01/14/2014 11:28 AM [facility] | | CENTERECHOCARDIOGRAM REPORTSTUDY DATE: 01/14/2014PATIENT NAME: Rosario AyersOB: | | 1965MRN: [id number]: EFREN GuillaumeLINICAL HISTORY/DIAGNOSIS: | | Pericarditis/pericardial effusionA [...] | mmHgLA volume: 30 mLLA index: 18 mL/u7Vxzpnw Inflow DT: 262 msIVRT: 75 msValsalva: | | NegativePWDTI S wave: 8.7 cm/sPWDTI E wave: 9.0 cm/sPWDTI A wave: 11.5 cm/sE/A Ratio: | | 0.783E/E Ratio: 8.95Signed by: Jared Mcdonough MD [facility] 01/14/2014 8:40 | | Nutritional Services Host: Charmaine Ibarra RDMS | | | | [...] | |Signed by: Jared Mcdonough MD [facility] | | 01/14/2014 8:40 | | | | | |Nutritional Services Host: Charmaine Ibarra RDMS | + + + + + + + | Performing | Address | City/State/Zipcode | Phone Number | | Organization | | | | + + + + + | [address] | [address] | [place] | [phone] | | [facility] | | [address] | | | - IMAGING | | [...]
--- OUTSIDE RECORDS SUMMARY | ~2019-01-15 | XMS | Encounter Summary ---
Demographics + + + | Address | [address] | | | [place] [address] | + + + | Home Phone [...] Team Providers + +------+ + | Care Non Destructive Testing Specialist Name | Role | Phone [...] [place] | [facility]OM [facility] | | | | | [address] | [place] [address] | | | | | [phone] | [phone] | | | | | | | [...] [place] | | | | | | [address] | | | | | | | | +--------+---------+ + + + | 11/24/ | Office | Cardiology | [place], | | | 2019 | Visit | | SINDHU Erickson [address] | | | | | | [place], | | | | | | [place] [address] | | | | | | [phone] | | | | | | | | +--------+---------+ + + + documented as of this encounter Visit Diagnoses Not on filedocumented in this encounter"
--- OUTSIDE RECORDS SUMMARY | ~2019-01-15 | XMS | Encounter Summary ---
Demographics + + + | Address | [address] | | | [place] [address] | + + + | Home Phone [...] Team Providers + +------+ + | Care Fuse Spooler Name | Role | Phone | + +------+ + | Juan Cherry DO | PCP | | + +------+ + Encounter Details +--------+ + + + + | Date | Type | Department | Care Team | Description | +--------+ + + + + | 11/05/ | Hospital | [facility] | Shashi Segovia | Pituitary mass (HCC) | | 2013 | Encounter | MED CTR LABORATORY | MD Miryam Need updated | | | | | [address] [place] | address | | | | | [place] | | | | | | [address] | | | | | | [phone] | | | +--------+ + + + [...] [place] | | | | | | [address] | | | | | | | | +--------+---------+ + + + | 11/24/ | Office | Cardiology | [place], | | | 2019 | Visit | | SINDHU Erickson [address] | | | | | | [place], | | | | | | [place] [address] | | | | | | [phone] | | | | | | | [...] [place] | | | | | | [address] | | | | + + + [...] [address] | [place] [address] | [phone] | + + + + + Insulin-Like [...] | | | | | [place] [address] | | | | + + + + + + + + | Specimen | + + | Blood specimen | | (specimen) | + + + + + + + | Performing | Address | City/State/Zipcode | Phone Number | | Organization | | | | + + + + + | [facility] | [address] | [place] [address] | [phone] | + + + + + Prolactin [...] [place] | | | | | | [address] | | | | + + + [...] 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
--- OUTSIDE RECORDS SUMMARY | ~2019-01-15 | XMS | Encounter Summary ---
Demographics + + + | Address | [address] | | | [place] [address] | + + + | Home Phone [...] Team Providers + +------+ + | Care Closet Organizer Name | Role | Phone | + [...] | | | | [facility] | [address] | [address] | | | | | EXERCISE | [place], | [place] | | | | | | [place] [address] | [place], [place] | | | | | | Phone: | [address] | | | | | | [phone] | Phone: | | | | | | Fax: | [phone] | | | | | | [phone] | Fax: | | | | | | | [phone] | +--------+--------+ + + + + Encounter Details +--------+---------+ + + + | Date | Type | Department | Care Team | Description | +--------+---------+ + + + | 07/02/ | Office | [facility] | Jared Mcdonough, | Chronic obstructive | | 2017 | Visit | MED CTR CARDIAC | MD Migdalia King | pulmonary disease, | | | | REHABILITATION [address] [place], | unspecified COPD | | | | [address] [place] | [place] [address] | type (HCC) (Primary | | | | [place] [address] | [phone] | Dx); Mild persistent | | | | [phone] | | asthma without | | | [...] [place] | | | | | | [address] | | | | | | | | +--------+---------+ + + + | 11/24/ | Office | Cardiology | [place], | | | 2019 | Visit | | SINDHU Erickson [address] | | | | | | [place], | | | | | | [place] [address] | | | | | | [phone] | | | | | | | | +--------+---------+ + + + documented as of this encounter Visit Diagnoses + + | Diagnosis | + + | Chronic obstructive pulmonary disease, unspecified COPD type (HCC) - Primary | + + | Mild persistent asthma without complication Unspecified asthma | + + documented in this encounter"
--- OUTSIDE RECORDS SUMMARY | ~2019-01-15 | XMS | Encounter Summary ---
Demographics + + + | Address | [address] | | | [place] [address] | + + + | Home Phone [...] Team Providers + +------+ + | Care Footwear Production Machine Operator Name | Role | Phone | + +------+ + | Juan Cherry DO | PCP | | + +------+ + Encounter Details +--------+ + + + + | Date | Type | Department | Care Team | Description | +--------+ + + + + | 09/09/ | Hospital | [facility] | Conversion | Pain | | 2015 | Encounter | CONVERSION [address] | Transaction, | | | | | [address] | Provider Unknown | | | | | [place], [place] | [phone] | | | | | [address] | | | | | | [phone] | | | +--------+ + + + [...] | | | | | | | [facility]. | | | | | [...] [place] | | | | | | [address] | | | | | | | | +--------+---------+ + + + | 11/24/ | Office | Cardiology | [place], | | | 2019 | Visit | | SINDHU Erickson [address] | | | | | | [place], | | | | | | [place] [address] | | | | | | [phone] | | | | | | | [...]
--- OUTSIDE RECORDS SUMMARY | ~2019-01-15 | XMS | Encounter Summary ---
Demographics + + + | Address | [address] | | | [place] [address] | + + + | Home Phone [...] Providers + +------+ + | Care Editor House Organ Name | Role | Phone | + [...] + + | 10/04/ | [facility] | [facility] | Kevin Sandoval, | COPD (chronic | | 2013 | Visit | PULMONARY [address] | MD [address] | obstructive | | | | [place], | [place], [place] | pulmonary disease) | | | | [place] [address] | [address] | ([facility]) (Primary Dx); | | | | [phone] | | Hypoxemia | +--------+---------+ + + [...] not start to improve within 24 hours 0016-[address]93 Rafael Perez, [address] [place] [address], [place] [address]. All rights reserve d. This information is [...] evaluated in the emergency department of the [facility]. The second exacerbation occurred in early August and resulted in hospitalization at the [facility]. Treatment with prednisone and anti biotics occurred. Rosario was hospitalized for approximately 4 days. She was discharged o n supplemental oxygen and instructed to use it 24 hours a day. She also apparently had an i ncreased heart rate which was evaluated by trash collector supervisor. The patient was treated with digox in. [...] [facility]) 10/28/2012 Overview: Managed by [facility] along with hypothyroidism Osteoarthritis Tachycardia Social History: [...] Need 99 months. Please send order to [facility] D isp: 1 each, Rfl: 0 Respiratory Therapy Supplies MISC, Change CPAP back to 11-14 cm H2O. All necessary supplies . No oxygen bleed in. Diagnosis Code(s)327.23. Length of Need: Lifetime. Please send order t [facility]. This is not a [...] | | | | | [place], [place] | | | | | | [address] | | | | | | | | +--------+---------+ + + + | 11/24/ | Office | Cardiology | [place], | | | 2019 | Visit | | SINDHU Erickson [address] | | | | | | [place], | | | | | | [place] [address] | | | | | | [phone] | | | | | | | | +--------+---------+ + + + documented as of this encounter Visit Diagnoses + + | Diagnosis | + + | COPD (chronic obstructive pulmonary disease) (HCC) - Primary Chronic airway | | obstruction, not elsewhere classified | + + | Hypoxemia | + + documented in this encounter
--- OUTSIDE RECORDS SUMMARY | ~2019-01-15 | XMS | Encounter Summary ---
Demographics + + + | Address | [address] | | | [place] [address] | + + + | Home Phone [...] Providers + +------+ + | Care Relocation Coordinator Name | Role | Phone | [...] | [address] [place] | [place] [address] | Dx) | | | | [facility], [place] | [phone] | | | | | [address] | | | | | | [phone] | | | +--------+ + + + [...] [place] | | | | | | [address] | | | | | | | | +--------+---------+ + + + | 11/24/ | Office | Cardiology | [place], | | | 2019 | Visit | | SINDHU Erickson [address] | | | | | | [place], | | | | | | [place] [address] | | | | | | [phone] | | | | | | | | +--------+---------+ + + + documented as of this encounter Visit Diagnoses + + | Diagnosis | + + | Other specified sites of sprains and strains - Primary | + + documented in this encounter"
--- OUTSIDE RECORDS SUMMARY | ~2019-01-15 | XMS | Encounter Summary ---
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 Fifteen minutes were spent [id number]-sa-jecw, wit h the majority of time spent [...] [place] | | | | | | [address] | | | | | | | | +--------+---------+ + + + | 11/24/ | Office | Cardiology | [place], | | | 2019 | Visit | | SINDHU Erickson [address] | | | | | | [place], | | | | | | [place] [address] | | | | | | [phone] | | | | | | | | +--------+---------+ + + + documented as of this encounter Visit Diagnoses + + | Diagnosis | + + | Organic insomnia, unspecified - Primary | + + | GARRY on CPAP Obstructive sleep apnea (adult) (pediatric) | + + documented in this encounter"
--- OUTSIDE RECORDS SUMMARY | ~2019-01-15 | XMS | Encounter Summary ---
Demographics + + + | Address | [address] | | | [place] [address] | + + + | Home Phone [...] Providers + +------+ + | Care Rail Operations Controller Name | Role | Phone | [...] [address] | CALL) | | | | [place], [place] | [facility]OM [facility] | | | | | [address] | [place] [address] | | | | | [phone] | [phone] | | | | | | | [...] [place] | | | | | | [address] | | | | | | | | +--------+---------+ + + + | 11/24/ | Office | Cardiology | [place], | | | 2019 | Visit | | SINDHU Erickson [address] | | | | | | [place], | | | | | | [place] [address] | | | | | | [phone] | | | | | | | | +--------+---------+ + + + documented as of this encounter Visit Diagnoses Not on filedocumented in this encounter"
--- OUTSIDE RECORDS SUMMARY | ~2019-01-15 | XMS | Encounter Summary ---
Demographics + + + | Address | [address] | | | [place] [address] | + + + | Home Phone [...] Team Providers + +------+ + | Care Roving Frame Tender Name | Role | Phone | + +------+ + PCP | Unavailable | + +------+ + Encounter Details +--------+ + + + + | Date | Type | Department | Care Team | Description | +--------+ + + + + | 01/24/ | [facility] | [facility] | | | | 2008 - | Encounter | MED CTR OP REHAB | | | | | | [address] [place] | | | | 02/23/ | | [place] [address] | | | | 2008 | | [phone] | | | +--------+ + + + [...] [place] | | | | | | [address] | | | | | | | | +--------+---------+ + + + | 11/24/ | Office | Cardiology | [place], | | | 2020 | Visit | | SINDHU Erickson [address] | | | | | | [place], | | | | | | [place] [address] | | | | | | [phone] | | | | | | | | +--------+---------+ + + + documented as of this encounter Visit Diagnoses Not on filedocumented in this encounter"
--- OUTSIDE RECORDS SUMMARY | ~2019-01-15 | XMS | Encounter Summary ---
Demographics + + + | Address | [address] | | | [place] [address] | + + + | Home Phone [...] Team Providers + +------+ + | Care Biofuels Plant Construction Worker Name | Role | Phone | + +------+ + | Juan Cherry DO | PCP | | + +------+ + Encounter Details +--------+ + + + + | Date | Type | Department | Care Team | Description | +--------+ + + + + | 11/08/ | Hospital | [facility] MED[facility] | Conversion | Asthma, moderate | | 2014 | Encounter | CENTER CARDIAC | Transaction, | persistent, | | | | PULMONARY REHAB | Provider Unknown | uncomplicated | | | | [address] [facility] | [phone] | | | | | [place], [place] | | | | | | [address] | | | | | | [phone] | | | +--------+ + + + [...] [place] | | | | | | [address] | | | | | | | | +--------+---------+ + + + | 11/24/ | Office | Cardiology | [place], | | | 2019 | Visit | | SINDHU Erickson [address] | | | | | | [place], | | | | | | [place] [address] | | | | | | [phone] | | | | | | | | +--------+---------+ + + + documented as of this encounter Visit Diagnoses + + | Diagnosis | + + | Asthma, moderate persistent, uncomplicated | + + documented in this encounter"
--- OUTSIDE RECORDS SUMMARY | ~2019-01-15 | XMS | Encounter Summary ---
Demographics + + + | Address | [address] | | | [place] [address] | + + + | Home Phone [...] Team Providers + +------+ + | Care Ham Trimmer Name | Role | Phone | + +------+ + PCP | Unavailable | + +------+ + Encounter Details +--------+ + + + + | Date | Type | Department | Care Team | Description | +--------+ + + + + | 02/09/ | Hospital | [facility] | Alexi Guaman, | | | 2009 | Encounter | MED CTR EMERGENCY | [address] | | | | | [place] [address] | [place] | | | | | [place] | [address] | | | | | [address] | | | | | | [phone] | | | +--------+ + + + [...] [place] | | | | | | [address] | | | | | | | | +--------+---------+ + + + | 11/24/ | Office | Cardiology | [place], | | | 2019 | Visit | | SINDHU Erickson [address] | | | | | | [place], | | | | | | [place] [address] | | | | | | [phone] | | | | | | | | +--------+---------+ + + + documented as of this encounter Visit Diagnoses Not on filedocumented in this encounter"
--- OUTSIDE RECORDS SUMMARY | ~2019-01-15 | XMS | Encounter Summary ---
Demographics + + + | Address | [address] | | | [place] [address] | + + + | Home Phone [...] Team Providers + +------+ + | Care Python Programmer Name | Role | Phone | [...] + + | 05/22/ | Clinical | [facility] | Andriy Weber | Interstitial | | 2018 | Support | [address] | MD [address] | cystitis (chronic) | | | | [place], [place] | [facility]OM [facility] | without hematuria | | | | [address] | [place] [address] | | | | | [phone] | [phone] | | | | | | | [...] was discharged home and will return to [facility] in 1 week for next treatment.Electronically [...] | | | | | | [place] [address] | | | | | | [phone] | | | | | | | [...] 1.001 - 1.030 | | | | [place], | | | | | | [facility], [...]
--- OUTSIDE RECORDS SUMMARY | ~2019-01-15 | XMS | Encounter Summary ---
Demographics + + + | Address | [address] | | | [place] [address] | + + + | Home Phone [...] Providers + +------+ + | Care Music Composition Teacher Name | Role | Phone | [...] + + | 11/12/ | Office | [facility] | [place], | Chest pain, | | 2018 | Visit | CARDIOLOGY [address] | SINDHU Erickson [address] | unspecified type | | | | [place], | [place], | (Primary Dx); | | | | [place] [address] | [place] [address] | Palpitations; | | | | [phone] | [phone] | Paroxysmal atrial | | | | [...] follow up in 6 to 8 wee tx for office visit, or sooner with concerns. [...] takes this da rigoberto Respiratory Therapy Supplies [facility] Please provide patient with necessary CPAP supplies ( she did not specify, okay to send order as appropriate) Diagnosis Code(s)327.23 . Length of Need 99 months. Please send order to [facility]. 1 each 0 Respiratory Therapy Supplies [facility] Change CPAP back to 11-14 cm H2O. [...] and v entricular function done at the [facility]. LVEF 78%. [...] She is in class II of the [place] [employer] funct ional class. There are [...] She was seen at the ED of [facility] 3 weeks ago and again [...] this chart may have been created with [employer] voice recognition software. Occasi onal wrong-word or [...] [place] | | | | | | [address] | | | | | | | | +--------+---------+ + + + | 11/24/ | Office | Cardiology | [place], | | | 2019 | Visit | | SINDHU Erickson [address] | | | | | | [place], | | | | | | [place] [address] | | | | | | [phone] | | | | | | | [...] | | | | [place], RAFA ([id number]) | | | | | | on [...]
--- OUTSIDE RECORDS SUMMARY | ~2019-01-15 | XMS | Encounter Summary ---
Demographics + + + | Address | [address] | | | [place] [address] | + + + | Home Phone [...] Providers + +------+ + | Care Test Architect Name | Role | Phone | + +------+ + | Juan Cherry DO | PCP | | + +------+ + Encounter Details +--------+ + + + + | Date | Type | Department | Care Team | Description | +--------+ + + + + | 04/02/ | Hospital | [facility] | Dio Yun | | | 2017 | Encounter | MED CTR NUCLEAR | MD [address] | | | | | MEDICINE [address] | [place] [address] | | | | | [place], | [place], [place] | | | | | [place] [address] | [address] | | | | | [phone] | [phone] | | | | | | | [...] | 0 | 10/13/19 | | | Pqxjtgwfvo-CYNG-Jpxb | mouth as needed. | | | 16 | 7 | | -Cod [id number] MG | | | | | | [...] | | | | | | [place] [address] | | | | | | [phone] | | | | | | | [...] | Procedure Note | + + | Ered, Rad Results In - 04/02/2016 11:38 AM [...] + + | Performing | Address | City/State[facility] | Phone Number | | Organization | | | | + +---------+ + + | [facility] | | | | + +---------+ + + documented in this encounter Visit Diagnoses Not on filedocumented in this encounter
--- OUTSIDE RECORDS SUMMARY | ~2019-01-15 | XMS | Encounter Summary ---
Demographics + + + | Address | [address] | | | [place] [address] | + + + | Home Phone [...] Providers + +------+ + | Care Veneer Splicer Name | Role | Phone | + +------+ + PCP | Unavailable | + +------+ + Encounter Details +--------+ + + + + | Date | Type | Department | Care Team | Description | +--------+ + + + + | 04/13/ | Hospital | [facility] | Lencho Goss MD | | | 2010 | Encounter | MED CTR GENERIC OP | [address], [place] | | | | | CONV DEPT [address] | [address] [place], [place] | | | | | [address] [place], | [address] | | | | | [place] [address] | | | | | | [phone] | | | +--------+ + + + [...] [place] | | | | | | [address] | | | | | | | | +--------+---------+ + + + | 11/24/ | Office | Cardiology | [place], | | | 2019 | Visit | | SINDHU Erickson [address] | | | | | | [place], | | | | | | [place] [address] | | | | | | [phone] | | | | | | | | +--------+---------+ + + + documented as of this encounter Visit Diagnoses Not on filedocumented in this encounter"
--- OUTSIDE RECORDS SUMMARY | ~2019-01-15 | XMS | Encounter Summary ---
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 I reviewed the notes from Dr Chris Alarcon in [place], [place].It indicates that patient had CPAP intolerance [...] day f or her COPD through her civil draftsman. We performed a CPAP titration study on [...] spen t below SpO2 of 90% was0%.Transcutaneous RG7qjzatn 35-37mmHg during supine wake, and remained between [...] Historical Provider, Yinka Witt Respiratory Therapy Supplies [facility] Please provide patient with necessary CPAP supplies (she did not specify, okay to send order as appropriate) Diagnosis Code(s)327.23 . Length of Need 99 months. Please send order to [facility]. 01/13/13 Yes Loreta London MD Respiratory Therapy Supplies [facility] Change CPAP back to 11-14 cm H2O. All necessary supplies. No oxygen bleed in. Diagnosis Code(s)327.23. Length of Need: Lifetime. Please send order to [facility]. This [...] her awakenings at night, I will ask [place] to check her machine for adjusting humidity [...] this chart may have been created with [employer] voice recognition software. Occasi onal wrong-word or [...] | | | | [place] | | | | | | [address] | | | | | | | | +--------+---------+ + + + | 11/24/ | Office | Cardiology | [place], | | | 2019 | Visit | | SINDHU Erickson [address] | | | | | | [place], | | | | | | [place] [address] | | | | | | [phone] | | | | | | | [...]
--- OUTSIDE RECORDS SUMMARY | ~2019-01-15 | XMS | Encounter Summary ---
Demographics + + + | Address | [address] | | | [place] [address] | + + + | Home Phone [...] Team Providers + +------+ + | Care Silverware Buffer Name | Role | Phone | + +------+ + PCP | Unavailable | + +------+ + Encounter Details +--------+ + + + + | Date | Type | Department | Care Team | Description | +--------+ + + + + | 10/27/ | [facility] | [facility] | | | | 2008 - | Encounter | MED CTR OP REHAB | | | | | | [address] [place] | | | | 11/23/ | | [place] [address] | | | | 2008 | | [phone] | | | +--------+ + + + [...] [place] | | | | | | [address] | | | | | | | | +--------+---------+ + + + | 11/24/ | Office | Cardiology | [place], | | | 2020 | Visit | | SINDHU Erickson [address] | | | | | | [place], | | | | | | [place] [address] | | | | | | [phone] | | | | | | | | +--------+---------+ + + + documented as of this encounter Visit Diagnoses Not on filedocumented in this encounter"
--- OUTSIDE RECORDS SUMMARY | ~2019-01-15 | XMS | Encounter Summary ---
Demographics + + + | Address | [address] | | | [place] [address] | + + + | Home Phone [...] Providers + +------+ + | Care Online Content Coordinator Name | Role | Phone | + +------+ + PCP | Unavailable | + +------+ + Encounter Details +--------+ + + + + | Date | Type | Department | Care Team | Description | +--------+ + + + + | 08/18/ | Hospital | [facility] | Lencho Goss MD | | | 2000 | Encounter | MED CTR XRAY [address] | [address] | | | | | [place] | [address] [place], [place] | | | | | [place] [address] | [address] | | | | | [phone] | | | +--------+ + + + [...] [place] | | | | | | [address] | | | | | | | | +--------+---------+ + + + | 11/24/ | Office | Cardiology | [place], | | | 2019 | Visit | | SINDHU Erickson [address] | | | | | | [place] | | | | | | [place] [address] | | | | | | [phone] | | | | | | | | +--------+---------+ + + + documented as of this encounter Visit Diagnoses Not on filedocumented in this encounter"
--- OUTSIDE RECORDS SUMMARY | ~2019-01-15 | XMS | Encounter Summary ---
Demographics + + + | Address | [address] | | | [place] [address] | + + + | Home Phone [...] Providers + +------+ + | Care Gas Appliance Repairer Name | Role | Phone | [...] | 04/16/ | Emergency | [facility] | Sonny Cesar MD | Epigastric pain | | 2016 | | MED CTR EMERGENCY | [address] | (Primary Dx); Chest | | | | CENTER [address] | [place] | pain, unspecified | | | | [place], [place] | [address] | chest pain type | | | | [address] | | | | | | [phone] | | | +--------+ + + + [...] [place] | | | | | | [address] | | | | | | | | +--------+---------+ + + + | 11/24/ | Office | Cardiology | [place], | | | 2020 | Visit | | SINDHU Erickson [address] | | | | | | [place], | | | | | | [place] [address] | | | | | | [phone] | | | | | | | [...] | | | | | | [employer] | | | | | [...] [address] | [place] | [phone] | | [facility] | | [address] | | | - LABORATORY | | [...] + | [facility] | [address] | [place] | [phone] | | [facility] | | [address] | | | - LABORATORY | | [...] mL/min/1.73m2 | Chris BERNA | | | [place]ANESE | RATE,ESTIMATED | | MEDICAL | | | | mL/min/1.87o8Sbxa than | | CENTER - | | [...] [address] | [place] | [phone] | | [facility] | | [address] | | | - LABORATORY | | [...] + | [facility] | [address] | [place] | [phone] | | [facility] | | [address] | | | - LABORATORY | | [...] | | | | RAFA WELLS MD ([id number]) | | | | | | on [...] | | | | | Intravenous, ONCE, [place] 04/16/15 at | | PM PST | | | | | 1600, For 1 dose | | | | | | + +-------+ +--------+---+---+ +---+---+ | | | +---+---+ + +-------+ +--------+---+---+ | HYDROmorphone (DILAUDID) | Given | 04/16/19 | 0.5 mg | | | | injection 0.5 mg 0.5 mg, | | 16 4:45 | | | | | Intravenous, ONCE, [place] 04/16/15 at | | PM PST | [...]
--- OUTSIDE RECORDS SUMMARY | ~2019-01-15 | XMS | Encounter Summary ---
Demographics + + + | Address | [address] | | | [place] [address] | + + + | Home Phone [...] Team Providers + +------+ + | Care Informatica Name | Role | Phone | + [...] 2013 | | [facility] | [address] [facility] | ([facility]) | | | | [facility] [address] | [place] | | | | | [address] [place] | [address] | | | | | [place] | | | | | | [address] | | | | | | [phone] | | | +--------+--------+ + + + [...] | | | | | | [place] [address] | | | | | | [phone] | | | | | | | | +--------+---------+ + + + documented as of this encounter Visit Diagnoses Not on filedocumented in this encounter"
--- OUTSIDE RECORDS SUMMARY | ~2019-01-15 | XMS | Encounter Summary ---
Demographics + + + | Address | [address] | | | [place] [address] | + + + | Home Phone [...] Providers + +------+ + | Care Steward/Stewardess Second Name | Role | Phone | + [...] & | | | | [address] | [place] | Bladder Biopsy | | | | [place], [place] | [place] [address] | | | | | [address] | [phone] | | | | | [phone] | | | +--------+---------+ + + + [...] (the anesthesiologist will discuss these with you) 5006-5115 [employer]. [address] [place] [address]. All righ ts reserved. This information is [...] | 0 | 10/13/19 | | | Qpyhqdtwbq-LVLX-Vekr | mouth as needed. | | | 16 | 7 | | -Cod [id number] MG | | | | | | [...] [place] | | | | | | [address] | | | | | | | | +--------+---------+ + + + | 11/24/ | Office | Cardiology | [place], | | | 2019 | Visit | | SINDHU Erickson [address] | | | | | | [place], | | | | | | [place] [address] | | | | | | [phone] | | | | | | | [...] ST. | [address] | [place], [place] | [phone] | | [facility] | | [address] | | | - LABORATORY | | [...] mild chronic mucosal | | | inflammation. JVR:[facility]:C2NR GROSS DESCRIPTION: The specimen is | | | received in three parts. A. The specimen is labeled and | | | designated "EdwardRosarionn, posterior bladder wall". Received | | | in formalin is one pink colored tissue fragment, it measures 0.25 x | | | 0.4 cm. all into (A1). B. The specimen is labeled and designated | | | "Edward, Rosario Rea, right bladder wall". Received in formalin is | | | one pink colored tissue fragment, 0.3 x 0.3 cm, all into (B1). C. | | | The specimen is labeled and designated "Edward, Rosario Rea, left | | | bladder wall". Received in formalin is one pink colored tissue | | | fragment, it measures 0.3 x 0.3 cm, all into (C1). yt:CLR:[facility] | | | MICROSCOPIC EXAMINATION: Histologic sections of all submitted blocks | | | are examined by light microscopy. These findings, together with the | | | gross examination, support the pathologic diagnosis. PERFORMING | | | LABORATORY: Tissue processing and slide preparation were performed by | | | [facility], [address] [place] [address], [address], [place] [address] | | | (Icu Manager: Kale Estrella M.D.; CLIA#: [id number]). | | | Professional interpretation was performed by [facility], | | | [facility], [address] [facility] | | | [place] [address] (Icu Manager: Kale Estrella M.D.; CLIA#: | | | [id number]). Diagnostician: Kale Estrella MD Pathologist | | [...] | | | | | | use Emporium 10/325 if ordered. If | | | [...]
--- OUTSIDE RECORDS SUMMARY | ~2019-01-15 | XMS | Encounter Summary ---
Demographics + + + | Address | [address] | | | [place] [address] | + + + | Home Phone [...] Team Providers + +------+ + | Care Independent Jeweler Name | Role | Phone | + [...] | with brief | [address] | [place] | | | | n | loss of | [address] | [place], | | | | | consciousnes | [place], | [place] [address] | | | | | s | [place] [address] | Phone: | | | | | Post-concuss | Phone: | [phone] | | | | | ion vertigo | [phone] | Fax: | | | | | [phone] | Fax: | [phone] | | | | | (ICD-10-CM) | [phone] | | | | | | - [...] + + | 05/01/ | Office | [facility] | Aaron Rodriguez, | Concussion with | | 2017 | Visit | MED CTR THERAPY PT | MD [address] | brief (less than one | | | | OP [address] | [place] | hour) loss of | | | | [place] | [id number] | consciousness | | | | [address] | | (Primary Dx); | | | | [phone] | Lakeshia Cleary, PT | Dizziness; Impaired | | | | | [address] | mobility and | | | | | [place] | activities of daily | | | | | [id number] | living; Intractable | | | | [...] limited or restricted Treatment Plan/Interventions PT EvaluationPT Re-Hvsifslvjr42986 - Therapeutic Cbbppmck64710 - Neuromuscular Reeducation9 7116 - Gait Qurujgtn02463 - Therapeutic Aenttfirhj80902 - Manual Ywjxpav54976 - Self Care/Ho me Management Electronically signed by: Lakeshia Barkley PT, 05/01/2016 12:44 Patient Name: Rosario Malik/: 1965/ Associated attestation - Aaron Rodriguez MD - 05/01/2016 12:52 PM PSTAaron Rodriguez MD (Jr.) Lakeshia Barkley, PT - 05/01/2016 9:53 AM PSTFormatting of this note might be different from t zachariah original. [facility] CTR THERAPY PT OP [address] [place] [address] Physical Therapy Initial Assessment Date: 05/01/2016 Patient [...] Pt lives in a 2 level home ([facility] downstairs) no railing so is very careful. Social History Social History Marital Status: Single Spouse Name: N/A Number of Children: 1 Years of Education: 13 Occupational History [employer] Social History Main Topics Smoking status: [...] of pituitary gland and craniopharyngeal duct (pouch) ([facility]) 10/28/2012 Overview: Managed by [facility] along with hypothyroidism Osteoarthritis Tachycardia Asthma Emphysema Migraine Sleep apnea uses BiPAP Oxygen dependent uses 2.5 liters most of the time Past Surgical History Procedure Laterality Date Hammer toe surgery right sided Hiatal hernia repair Hiatal hernia Kirk and bso Ovarian cysts, not cancer Colonoscopy 03/2010 Colonoscopy 1995 [facility] Knee surgery right Wrist surgery right Hysterectomy Other surgical history 02/28/2014 [facility] with Radial approach; Laterality: Left; Surgeon: Jared Mcdonough MD; Location[facility] Tonsillectomy Age 6 Turbt N/A 11/22/2015 Procedure: Cystoscopy, Hydrodistention & Bladder Biopsy; Surgeon: Yinka Melendez; Location: [facility] MAIN OR Hernia repair 11/29/2015 [facility] Family History Problem Relation Age of [...] Rehab Precautions Office Visit from 05/01/2016 in [facility] CTR THERAPY PT OP Rehab Precautions Precautions [...] performing more ambitious activities, like sports, dancing, paediatrician such a s sweeping or putting dishes [...] Certification To: 07/24/2016 Treatment Plan/Interventions PT EvaluationPT Re-Vjyowlqank65634 - Therapeutic Fygkzlna56839 - Neuromuscular Reeducation9 7116 - Gait Eyxrolfn45794 - Therapeutic Kynpwvomdw28843 - Manual Kpgpqjk78703 - Self Care/Ho me Management Patient and/or [...] [place] | | | | | | [address] | | | | | | | | +--------+---------+ + + + | 11/24/ | Office | Cardiology | [place], | | | 2020 | Visit | | SINDHU Erickson [address] | | | | | | [place], | | | | | | [place] [address] | | | | | | [phone] | | | | | | | [...]
--- OUTSIDE RECORDS SUMMARY | ~2019-01-15 | XMS | Encounter Summary ---
Demographics + + + | Address | [address] | | | [place] [address] | + + + | Home Phone [...] Providers + +------+ + | Care Green Feed Attendant Name | Role | Phone | [...] | 07/29/ | Telephone | [facility] | Weber, Andriy | Other | | 2018 | | [address] | MD [address] | | | | | [place] | THOM [facility] | | | | | [address] | [place] [address] | | | | | [phone] | [phone] | | | | | | | [...] [place] | | | | | | [address] | | | | | | | | +--------+---------+ + + + | 11/24/ | Office | Cardiology | [place], | | | 2019 | Visit | | SINDHU Erickson [address] | | | | | | [place] | | | | | | [place] [address] | | | | | | [phone] | | | | | | | | +--------+---------+ + + + documented as of this encounter Visit Diagnoses Not on filedocumented in this encounter"
--- OUTSIDE RECORDS SUMMARY | ~2019-01-15 | XMS | Encounter Summary ---
Demographics + + + | Address | [address] | | | [place] [address] | + + + | Home Phone [...] Team Providers + +------+ + | Care Privacy Attorney Name | Role | Phone | + [...] + + | 07/09/ | Clinical | [facility] | Andriy Weber | Bladder pain | | 2018 | Support | [address] | MD [address] | (Primary Dx) | | | | [place], [place] | [address] [facility] | | | | | [address] | [place] [address] | | | | | [phone] | [phone] | | | | | | | [...] [place] | | | | | | [id number] | | | | | | | | +--------+---------+ + + + | 11/24/ | Office | Cardiology | [place], | | | 2019 | Visit | | SINDHU Erickson [address] | | | | | | [place], | | | | | | [place] [address] | | | | | | [phone] | | | | | | | [...]
--- OUTSIDE RECORDS SUMMARY | ~2019-01-15 | XMS | Encounter Summary ---
Demographics + + + | Address | [address] | | | [place] [address] | + + + | Home Phone [...] Providers + +------+ + | Care Junior Mechanical Engineer Name | Role | Phone | [...] + + | 07/18/ | [facility] | [facility] | Ozzy Aponte | Laceration of left | | 2013 | | MED CTR EMERGENCY | Ozzie Kebede MD | upper arm without | | | | CENTER [address] | [address] | foreign body, | | | | [place] | [place] | initial encounter | | | | [address] | [address] | (Primary Dx) | | | | [phone] | | | +--------+ + + + [...] | | | | send order to [facility] | | | | | [...] [place] | | | | | | [address] | | | | | | | | +--------+---------+ + + + | 11/24/ | Office | Cardiology | [place], | | | 2019 | Visit | | SINDHU Erickson [address] | | | | | | [place], | | | | | | [place] [address] | | | | | | [phone] | | | | | | | [...] -------- | | | ---- 07/18/2013 12:04 [place] | | | [facility] Emergency cut on Lft arm; | | | 07/14/2013 00:15 [facility] | | | Emergency Shortness of Breath; | | | | | | Chronic obstructive asthma with (acute) exacerbation; | | | 06/19/2013 21:06 [facility] | | | Emergency Obstructive chronic bronchitis with (acute) | | | exacerbation; | | | Shortness of | | | Breath; | | | diff breathing; | | | 06/19/2013 11:03 [facility] | | | Emergency COPD exasperation; 05/23/2013 19:52 [place] | | | [facility] Emergency Obstructive chronic | | | bronchitis with (acute) exacerbation; | | | | | | Obstructive chronic bronchitis with (acute) exacerbation; | | | | | | sob; | | | | | | Shortness of Breath; VISIT COUNT (1 YR.) Visits | | | Medicaid [place] Dx Location ------ | | | --------- [address] [facility] | | | [facility] 11 0 Total | | | Note: Visits indicate total known visits. Medicaid [place] Dx are the | | | number of primary diagnoses on the [facility]'s non-emergent dx list. | | | | [...] | | + +--------+ +---------+------+ + | qgskjbl-ehiwvpjndx-svrnuftkd | Given | 07/19/19 | 0.5 mLs [...]
--- OUTSIDE RECORDS SUMMARY | ~2019-01-15 | XMS | Encounter Summary ---
Demographics + + + | Address | [address] | | | [place] [address] | + + + | Home Phone [...] Providers + +------+ + | Care Paper Twister Name | Role | Phone | + [...] | | | | CENTER [address] | [address] [place] | encounter (Primary | | | | [place], [place] | [place] [address] | Dx); Fall at home, | | | | [address] | [phone] | initial encounter; | | | | [phone] | | Contusion of left | | [...] be sent through Care Everywhere.CONCUSSION, AFT ER ([place])FRACTURE, NOSE, WITH X-RAY ([place])documented in this encounter Medications at Time of [...] | 0 | 10/13/19 | | | Epovcjzqvi-LQUZ-Rxne | mouth as needed. | | | 16 | 7 | | -Cod [id number] MG | | | | | | [...] | | | | | | [place] [address] | | | | | | [phone] | | | | | | | [...] CT Maxillofacial wo Contrast (03/24/2016 10:54 AM [facility]) + + | Specimen | + [...]
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
--- OUTSIDE RECORDS SUMMARY | ~2019-01-15 | XMS | Encounter Summary ---
Demographics + + + | Address | [address] | | | [place] [address] | + + + | Home Phone [...] Team Providers + +------+ + | Care Surgery Scheduler Name | Role | Phone | [...] | (obstructive | [address] | [place] | | | | | sleep | ST [place] | [place], | | | | | apnea) | [place], [place] | [place] [address] | | | | | Procedures | [address] | Phone: | | | | | [place] | Phone: | [phone] | | | | | 6/>YRS SLEEP | [phone] | Fax: | | | | | 4/> ADDL | Fax: | [phone] | | | | | ALESSIA ATTND | [phone] | | | | | | [place] | | | | | | [...] sleep apnea) | | | | [address] [place] | [place] | (Primary Dx) | | | | [place] [address] | [address] | | | | | [phone] | | | +--------+ + + + [...] [place] | | | | | | [address] | | | | | | | | +--------+---------+ + + + | 11/24/ | Office | Cardiology | [place], | | | 2019 | Visit | | SINDHU Erickson [address] | | | | | | [place], | | | | | | [place] [address] | | | | | | [phone] | | | | | | | | +--------+---------+ + + + + + +--------+ + + | Name | Type | Priori | Associated Diagnoses | Order Schedule | | | | ty | | | + + +--------+ + + | * [facility] - | Outpatient | Routin [...]
--- OUTSIDE RECORDS SUMMARY | ~2019-01-15 | XMS | Encounter Summary ---
Demographics + + + | Address | [address] | | | [place] [address] | + + + | Home Phone [...] Providers + +------+ + | Care Rubber Flap Cutter Name | Role | Phone | [...] + + | 11/04/ | Office | [facility] | Daryl Hargrove | Axillary abscess | | 2015 | Visit | CARE [address] | Ernie Sanabria MD | (Primary Dx) | | | | [place], [place] | [address] | | | | | [address] | [place] [facility] | | | | | [phone] | [address] | | | | | [...] | | | | | | [place] [address] | | | | | | [phone] | | | | | | | [...] [address] | [place] | [phone] | | [facility] | | [address] | | | - LABORATORY | | | | + + + + + documented in this encounter Visit Diagnoses + + | Diagnosis | + + | Axillary abscess - Primary Cellulitis and abscess of upper arm and forearm | + + documented in this encounter
--- OUTSIDE RECORDS SUMMARY | ~2019-01-15 | XMS | Encounter Summary ---
Demographics + + + | Address | [address] | | | [place] [address] | + + + | Home Phone [...] Team Providers + +------+ + | Care Greenhouse Assistant Name | Role | Phone | + +------+ + | Juan Cherry DO | PCP | | + +------+ + Encounter Details +--------+ + + + + | Date | Type | Department | Care Team | Description | +--------+ + + + + | 05/03/ | Hospital | [facility] | Ozzie Hayes | | | 2012 | Encounter | MED CTR EMERGENCY | MD Ran [address] | | | | | CENTER [address] | [address] [facility] | | | | | [place], [place] | [place] [address] | | | | | [address] | [phone] | | | | | [phone] | | | +--------+ + + + [...] [place] | | | | | | [address] | | | | | | | | +--------+---------+ + + + | 11/24/ | Office | Cardiology | [place], | | | 2019 | Visit | | SINDHU Erickson [address] | | | | | | [place], | | | | | | [place] [address] | | | | | | [phone] | | | | | | | | +--------+---------+ + + + documented as of this encounter Visit Diagnoses Not on filedocumented in this encounter"
--- OUTSIDE RECORDS SUMMARY | ~2019-01-15 | XMS | Encounter Summary ---
Demographics + + + | Address | [address] | | | [place] [address] | + + + | Home Phone [...] Providers + +------+ + | Care Wood Heel Fitter Machine Name | Role | Phone | [...] | | | | | [address] [place] | | | | | | [place] [address] | | | | | | [phone] | | | +--------+ + + + [...] Weber, PT - 05/27/2013 3:22 PM [facility] [place] [address] [facility] [address] Cancellation/No Show Date: 05/27/2013 Patient Information Patient [...] [place] | | | | | | [id number] | | | | | | | | +--------+---------+ + + + | 11/24/ | Office | Cardiology | [place] | | | 2019 | Visit | | SINDHU Erickson [address] | | | | | | [place] | | | | | | [place] [address] | | | | | | [phone] | | | | | | | | +--------+---------+ + + + documented as of this encounter Visit Diagnoses Not on filedocumented in this encounter"
--- OUTSIDE RECORDS SUMMARY | ~2019-01-15 | XMS | Encounter Summary ---
Demographics + + + | Address | [address] | | | [place] [address] | + + + | Home Phone [...] Providers + +------+ + | Care Double End Tenoner Setter Name | Role | Phone | [...] MD | oximetry) | | | | [place], | | | | | | [place] [address] | | | | | | [phone] | | | +--------+ + + + [...] | | | | | | [place] [id number] | | | | | | [phone] | | | | | | | [...]
--- OUTSIDE RECORDS SUMMARY | ~2019-01-15 | XMS | Encounter Summary ---
Demographics + + + | Address | [address] | | | [place] [address] | + + + | Home Phone [...] Providers + +------+ + | Care Fur Scraper Name | Role | Phone | + [...] Provider Unknown | | | | | [place], [place] | [phone] | | | | | [address] | | | | | | [phone] | | | +--------+ + + + [...] | | | | [address] [facility] | | | | | | [address] | | | | | | | | +--------+---------+ + + + | 11/24/ | Office | Cardiology | [place], | | | 2019 | Visit | | SINDHU Erickson [address] | | | | | | [place], | | | | | | [place] [address] | | | | | | [phone] | | | | | | | [...]
--- OUTSIDE RECORDS SUMMARY | ~2019-01-15 | XMS | Encounter Summary ---
Demographics + + + | Address | [address] | | | [place] [address] | + + + | Home Phone [...] Team Providers + +------+ + | Care Outfitter Cabin Name | Role | Phone | + [...] | | [place] | [facility] | | | | | [address] | [place] [address] | | | | | [phone] | [phone] | | | | | | | [...] [place] | | | | | | [address] | | | | | | | | +--------+---------+ + + + | 11/24/ | Office | Cardiology | [place], | | | 2019 | Visit | | SINDHU Erickson [address] | | | | | | [place], | | | | | | [place] [address] | | | | | | [phone] | | | | | | | | +--------+---------+ + + + documented as of this encounter Visit Diagnoses Not on filedocumented in this encounter"
--- OUTSIDE RECORDS SUMMARY | ~2019-01-15 | XMS | Encounter Summary ---
Demographics + + + | Address | [address] | | | [place] [address] | + + + | Home Phone [...] Providers + +------+ + | Care Core Man Name | Role | Phone | [...] + + | 01/24/ | Telephone | [facility] | Jared Mcdonough, | Other (prescription | | 2013 | | CARDIOLOGY [address] | MD [address] | clarification) | | | | [place], | [place], | | | | | [place] [address] | [place] [address] | | | | | [phone] | [phone] | | | | | | | [...] [place] | | | | | | [address] | | | | | | | | +--------+---------+ + + + | 11/24/ | Office | Cardiology | [place], | | | 2019 | Visit | | SINDHU Erickson [address] | | | | | | [place], | | | | | | [place] [address] | | | | | | [phone] | | | | | | | | +--------+---------+ + + + documented as of this encounter Visit Diagnoses Not on filedocumented in this encounter"
--- OUTSIDE RECORDS SUMMARY | ~2019-01-15 | XMS | Encounter Summary ---
Demographics + + + | Address | [address] | | | [place] [address] | + + + | Home Phone [...] Team Providers + +------+ + | Care Examination Scorer Name | Role | Phone | + [...] Provider Unknown | | | | | [place], [place] | [phone] | | | | | [address] | | | | | | [phone] | | | +--------+ + + + [...] | | | | | | | [facility]. | | | | [...] | | | | Jose [address] [place] [facility] | | | | | | [address] | | | | | | | | +--------+---------+ + + + | 11/24/ | Office | Cardiology | [place], | | | 2019 | Visit | | SINDHU Erickson [address] | | | | | | [place], | | | | | | [place] [address] | | | | | | [phone] | | | | | | | [...]
--- OUTSIDE RECORDS SUMMARY | ~2019-01-15 | XMS | Encounter Summary ---
Demographics + + + | Address | [address] | | | [place] [address] | + + + | Home Phone [...] Team Providers + +------+ + | Care Center Medical Specialist Name | Role | Phone | + +------+ + | Juan Cherry DO | PCP | | + +------+ + Encounter Details +--------+ + + + + | Date | Type | Department | Care Team | Description | +--------+ + + + + | 02/28/ | Hospital | [facility] | Jared Mcdonough, | Other chest pain | | 2015 | Encounter | MED CTR CV INTRA OP | MD [address] | | | | | [address] | [place], | | | | | [place], [place] | [place] [address] | | | | | [address] | [phone] | | | | | [phone] | | | +--------+ + + + [...] [place] | | | | | | [address] | | | | | | | | +--------+---------+ + + + | 11/24/ | Office | Cardiology | [place], | | | 2019 | Visit | | SINDHU Erickson [address] | | | | | | [place], | | | | | | [place] [address] | | | | | | [phone] | | | | | | | [...] RECORD NUMBER: | MEDICAL CENTER | | [id number] DATE OF PROCEDURE: 02/28/2014 IT NETWORK ENGINEER: | - IMAGING | | Jared Mcdonough [...] Malik, (1965) OF | | PROCEDURE: 02/28/2014PRIMARY INSPECTOR REPAIRER: Jared Mcdonough MD PROCEDURES | | PERFORMED:Coronary [...] [address] | [place] | [phone] | | [facility] | | [address] | | | - IMAGING | | [...] | 0.94 | 0.60 - 1.30 | [facility] | | | | | mg/dL [...] | | MEDICAL | | | | mL/min/1.74j9Gmxh than | | CENTER - | | [...] + | [facility] | [address] | [place], [place] | [phone] | | [facility] | | [address] | | | - LABORATORY | | | | + + + + + | [facility] | [address] | [place], [place] | | | [facility] | | [address] | | | - LABORATORY | | [...]
--- OUTSIDE RECORDS SUMMARY | ~2019-01-15 | XMS | Encounter Summary ---
Demographics + + + | Address | [address] | | | [place] [address] | + + + | Home Phone [...] Providers + +------+ + | Care Retail Delivery Driver Name | Role | Phone | [...] + + | 06/23/ | Hospital | [facility] | [place], | Racing heart beat | | 2018 | Encounter | MED CTR NUCLEAR | SINDHU Erickson [address] | | | | | MEDICINE [address] | [place], | | | | | [place], | [place] [address] | | | | | [place] [address] | [phone] | | | | | [phone] | | | +--------+ + + + [...] | | | | | | [place] [address] | | | | | | [phone] | | | | | | | | +--------+---------+ + + + documented as of this encounter Visit Diagnoses + + | Diagnosis | + + | Racing heart beat Tachycardia, unspecified | + + documented in this encounter"
--- OUTSIDE RECORDS SUMMARY | ~2019-01-15 | XMS | Encounter Summary ---
Demographics + + + | Address | [address] | | | [place] [address] | + + + | Home Phone [...] Team Providers + +------+ + | Care Nut Grinder Name | Role | Phone | [...] | | | | | [place] | [facility] | | | | | [address] | [place] [address] | | | | | [phone] | [phone] | | | | | | | [...] [place] | | | | | | [address] | | | | | | | | +--------+---------+ + + + | 11/24/ | Office | Cardiology | [place], | | | 2019 | Visit | | SINDHU Erickson [address] | | | | | | [place], | | | | | | [place] [address] | | | | | | [phone] | | | | | | | | +--------+---------+ + + + documented as of this encounter Visit Diagnoses Not on filedocumented in this encounter"
--- OUTSIDE RECORDS SUMMARY | ~2019-01-15 | XMS | Encounter Summary ---
Demographics + + + | Address | [address] | | | [place] [address] | + + + | Home Phone [...] Team Providers + +------+ + | Care Negative Cutter Name | Role | Phone | + +------+ + | Juan Cherry DO | PCP | | + +------+ + Encounter Details +--------+ + + + + | Date | Type | Department | Care Team | Description | +--------+ + + + + | 04/02/ | Hospital | [facility] | Dio Yun | | | 2017 | Encounter | MED CTR NUCLEAR | MD Jesus [address] | | | | | MEDICINE [address] | [place] [address] | | | | | [place], | [place], [place] | | | | | [place] [address] | [address] | | | | | [phone] | [phone] | | | | | | | [...] | | | | | order to [facility]. | | | | | [...] | 0 | 10/13/19 | | | Fgripijrrf-TIGK-Eykw | mouth as needed. | | | 16 | 7 | | -Cod [id number] MG | | | | | | [...] | | | | | | [place] [address] | | | | | | [phone] | | | | | | | [...] + + | Performing | Address | City/State/[facility] | Phone Number | | Organization | | | | + +---------+ + + | [facility] | | | | + +---------+ + + documented in this encounter Visit Diagnoses Not on filedocumented in this encounter
--- OUTSIDE RECORDS SUMMARY | ~2019-01-15 | XMS | Encounter Summary ---
Demographics + + + | Address | [address] | | | [place] [address] | + + + | Home Phone [...] +------+ + | Care Sugar Cane Planter Machine Operator Name | Role | Phone | + +------+ + PCP | Unavailable | + +------+ + Encounter Details +--------+ + + + + | Date | Type | Department | Care Team | Description | +--------+ + + + + | 07/25/ | Hospital | [facility] | [place], | | | 2010 | Encounter | MED CTR EMERGENCY | Ozzy Kim MD [address] | | | | | CENTER [address] | [address] [facility] | | | | | [place], [place] | [place] [address] | | | | | [address] | [phone] | | | | | [phone] | | | +--------+ + + + [...] | | | Jose [address] [facility] | | | | | | [address] | | | | | | | | +--------+---------+ + + + | 11/24/ | Office | Cardiology | [place], | | | 2019 | Visit | | SINDHU Erickson [address] | | | | | | [place], | | | | | | [place] [address] | | | | | | [phone] | | | | | | | [...] - 1.030 | [facility] | | | [place] | | | [facility] | | [...] + | [facility] | [address] | [place], [place] | [phone] | | [facility] | | [address] | | | - LABORATORY | | | | + + + + + | [facility] | [address] | [place] | | | [facility] | | [address] | | | - LABORATORY | | | | + + + + + documented in this encounter Visit Diagnoses Not on filedocumented in this encounter"
--- OUTSIDE RECORDS SUMMARY | ~2019-01-15 | XMS | Encounter Summary ---
Demographics + + + | Address | [address] | | | [place] [address] | + + + | Home Phone [...] Providers + +------+ + | Care Foot Gatherer Name | Role | Phone | [...] + + | 04/27/ | Office | [facility] | Offenstein, | COPD (chronic | | 2013 | Visit | PULMONARY [address] | Loreta Alonso MD | obstructive | | | | [place], | | pulmonary disease) | | | | [place] [address] | | (Primary Dx); [place] | | | | [phone] | | (obstructive sleep | | | [...] MD Ayaka Rasheed Pulmonary and Critical Care [facility] [address] [place], [address] HPI Rosario Malik is a 48 y.o. 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 Length of Need 99 months. Please send order to [facility]. 1 each 0 Respiratory Therapy Supplies [...] Data: CPAP Data: Dates: 03/12/13-04/10/13 Machine type: [employer] S9 auto set Home Health Company: [employer] CPAP Pressure: 11-14 cmH2O Median Titrated Pressure: [...] made to ensure accuracy; however, inadvertent computerized dispatcher service errors may be pre sent. documented in t his encounter Plan of Treatment +--------+---------+ + + + | Date | Type | Specialty | Care Team | Description | +--------+---------+ + + + | 03/01/ | Office | Pulmonology | Mukul Clark MD | | | 2019 | Visit | | [address] | | | | | | [place] | | | | | | [address] | | | | | | | | +--------+---------+ + + + | 11/24/ | Office | Cardiology | [place], | | | 2019 | Visit | | SINDHU Erickson [address] | | | | | | [place], | | | | | | [place] [address] | | | | | | [phone] | | | | | | | [...]
--- OUTSIDE RECORDS SUMMARY | ~2019-01-15 | XMS | Encounter Summary ---
Demographics + + + | Address | [address] | | | [place] [address] | + + + | Home Phone [...] Team Providers + +------+ + | Care Appointment Manager Name | Role | Phone | [...] + + | 07/14/ | Emergency | [facility] | Ozzie Hayes | Acute exacerbation | | 2013 | | MED CTR EMERGENCY | MD Ran [address] | of COPD with asthma | | | | [place] [address] | Secretary [facility] | ([facility]) (Primary Dx) | | | | [place], [place] | [place] [address] | | | | | [address] | [phone] | | | | | [phone] | | | +--------+ + + + [...] [place] | | | | | | [address] | | | | | | | | +--------+---------+ + + + | 11/24/ | Office | Cardiology | [place], | | | 2019 | Visit | | SINDHU Erickson [address] | | | | | | Secretary [place], | | | | | | [place] [address] | | | | | | [phone] | | | | | | | [...] | 0.76 | 0.60 - 1.30 | [facility] | | | | | mg/dL [...] mL/min/1.73m2 | [facility] | | | ETHIOPIAN | RATE,ESTIMATED | | MEDICAL | | | | mL/min/1.08c3Eder than | | CENTER - | | [...] + | [facility] | [address] | [place] | [phone] | | [facility] | | [address] | | | - LABORATORY | | | | + + + + + | [facility] | [address] | [place], [place] | | | [facility] | | [address] | | | - LABORATORY | | [...] + + | Performing | Address | City/[facility]ode | Phone Number | | Organization | | | | + + + + + | [facility] | [address] | [place] | [phone] | | [facility] | | [address] | | | - LABORATORY | | | | + + + + + | [facility] | [address] | [place] | | | [facility] | | [address] | | | - LABORATORY | | [...] + | MISCELLANEOUS LAB | | | [phone] | + +---------+ + + | MISCELANIOUS LAB | | | [phone] | + +---------+ + + ED INFORMATION EXCHANGE (07/14/2013 12:20 AM PDT) + + | Specimen | + + | | + + + + + | Narrative | Performed At | + + + | VISIT TRACKING (3 MO.) Visit Date Location | [facility] | | Type Diagnoses | | | -------- | | | ---- 07/14/2013 00:15 [place] | | | [facility] Emergency Shortness of Breath; | | | 06/19/2013 21:06 [facility] | | | Emergency Obstructive chronic bronchitis with (acute) | | | exacerbation; | | | Shortness of | | | Breath; | | | diff breathing; | | | 06/19/2013 11:03 [facility] | | | Emergency COPD exasperation; 05/23/2013 19:52 [facility] | | | [facility] [...] ------ | | | --------- 10 0 [facility] | | | [facility] 10 0 Total | | | Note: Visits indicate total known visits. Medicaid [place] Dx are the | | | number of primary diagnoses on the [facility]'s non-emergent dx list. | | | | | | --- [facility] has no Care Guidelines for this patient. [...]
--- OUTSIDE RECORDS SUMMARY | ~2019-01-15 | XMS | Encounter Summary ---
Demographics + + + | Address | [address] | | | [place] [address] | + + + | Home Phone [...] Providers + +------+ + | Care Gold Buyer Name | Role | Phone | [...] | | central | [address] | [place] | | | | | sleep apnea | [address] | [place], | | | | | [place] | [place], | [place] [address] | | | | | (obstructive | [place] [address] | Phone: | | | | | sleep | Phone: | [phone] | | | | | apnea) | [phone] | Fax: | | | | | Procedures | Fax: | [phone] | | | | | [place] POLYSOM | [phone] | | | | | | 6/>YRS [...] + + | 02/08/ | Hospital | [facility] | Kevin Sandoval, | | | 2013 | Encounter | MED CTR SLEEP | [address] | | | | | [place] [address] [place] | [place] | | | | | [place] | [address] | | | | | [address] | | | | | | [phone] | | | +--------+ + + + [...] | | | | | order to [facility]. | | | | | + [...] [place] | | | | | | [address] | | | | | | | | +--------+---------+ + + + | 11/24/ | Office | Cardiology | [place], | | | 2019 | Visit | | SINDHU Erickson [address] | | | | | | [place], | | | | | | [place] [address] | | | | | | [phone] | | | | | | | [...]
--- OUTSIDE RECORDS SUMMARY | ~2019-01-15 | XMS | Encounter Summary ---
Demographics + + + | Address | [address] | | | [place] [address] | + + + | Home Phone [...] Providers + +------+ + | Care Employee Communications Manager Name | Role | Phone | + +------+ + | Juan Cherry DO | PCP | | + +------+ + Encounter Details +--------+ + + + + | Date | Type | Department | Care Team | Description | +--------+ + + + + | 02/08/ | Abstract | [facility] | [place], | | | 2013 | | CARDIOLOGY [address] | SINDHU Erickson [address] | | | | | [place], | [place], | | | | | [place] [address] | [place] [address] | | | | | [phone] | | | | | | | [...] [place] | | | | | | [address] | | | | | | | | +--------+---------+ + + + | 11/24/ | Office | Cardiology | [place], | | | 2019 | Visit | | SINDHU Erickson [address] | | | | | | [place] | | | | | | [place] [address] | | | | | | [phone] | | | | | | | | +--------+---------+ + + + documented as of this encounter Visit Diagnoses Not on filedocumented in this encounter"
--- OUTSIDE RECORDS SUMMARY | ~2019-01-15 | XMS | Encounter Summary ---
Demographics + + + | Address | [address] | | | [place] [address] | + + + | Home Phone [...] Team Providers + +------+ + | Care Paragliding Instructor Name | Role | Phone | [...] [address] | | | | | [place], | [place], | | | | | [place] [address] | [place] [address] | | | | | [phone] | [phone] | | | | | | | [...] | | | | | | [place] [address] | | | | | | [phone] | | | | | | | | +--------+---------+ + + + documented as of this encounter Visit Diagnoses Not on filedocumented in this encounter"
--- OUTSIDE RECORDS SUMMARY | ~2019-01-15 | XMS | Encounter Summary ---
Demographics + + + | Address | [address] | | | [place] [address] | + + + | Home Phone [...] Team Providers + +------+ + | Care Reliability Technicians Name | Role | Phone | + [...] | | | | [facility] | [address] | [address] | | | | | EXERCISE | [place], | [place] | | | | | | [place] [address] | [place], [place] | | | | | | Phone: | [address] | | | | | | [phone] | Phone: | | | | | | Fax: | [phone] | | | | | | [phone] | Fax: | | | | | | | [phone] | +--------+--------+ + + + + Encounter Details +--------+---------+ + + + | Date | Type | Department | Care Team | Description | +--------+---------+ + + + | 07/23/ | Office | [facility] | Jared Mcdonough, | Chronic obstructive | | 2017 | Visit | MED CTR CARDIAC | MD Migdalia King | pulmonary disease, | | | | REHABILITATION [address] [place], | unspecified COPD | | | | [address] [place] | [place] [address] | type (HCC) (Primary | | | | [place] [address] | [phone] | Dx); Mild persistent | | | | [phone] | | asthma without | | | [...] [place] | | | | | | [address] | | | | | | | | +--------+---------+ + + + | 11/24/ | Office | Cardiology | [place], | | | 2019 | Visit | | SINDHU Erickson [address] | | | | | | [place], | | | | | | [place] [address] | | | | | | [phone] | | | | | | | [...]
--- OUTSIDE RECORDS SUMMARY | ~2019-01-15 | XMS | Encounter Summary ---
Demographics + + + | Address | [address] | | | [place] [address] | + + + | Home Phone [...] Team Providers + +------+ + | Care Flumer Name | Role | Phone | + [...] | | PULMONARY [address] | Loreta Alonos MD | | | | | [place], | | | | | | [place] [address] | | | | | | [phone] | | | +--------+--------+ + + + [...] | | | | | | [place] [address] | | | | | | [phone] | | | | | | | | +--------+---------+ + + + documented as of this encounter Visit Diagnoses Not on filedocumented in this encounter"
--- OUTSIDE RECORDS SUMMARY | ~2019-01-15 | XMS | Encounter Summary ---
Demographics + + + | Address | [address] | | | [place] [address] | + + + | Home Phone [...] Team Providers + +------+ + | Care Locket Maker Name | Role | Phone | + +------+ + PCP | Unavailable | + +------+ + Encounter Details +--------+ + + + + | Date | Type | Department | Care Team | Description | +--------+ + + + + | 01/24/ | Hospital | [facility] | Avi Guru Garzon, | | | 2009 | Encounter | MED CTR EMERGENCY | MD [address] | | | | | CENTER [address] | [facility] [place] | | | | | [place], [place] | [place] [address] | | | | | [address] | [phone] | | | | | [phone] | | | +--------+ + + + [...] [place] | | | | | | [address] | | | | | | | | +--------+---------+ + + + | 11/24/ | Office | Cardiology | [place], | | | 2020 | Visit | | SINDHU Erickson [address] | | | | | | [place], | | | | | | [place] [address] | | | | | | [phone] | | | | | | | | +--------+---------+ + + + documented as of this encounter Visit Diagnoses Not on filedocumented in this encounter"
--- OUTSIDE RECORDS SUMMARY | ~2019-01-15 | XMS | Encounter Summary ---
Demographics + + + | Address | [address] | | | [place] [address] | + + + | Home Phone [...] Providers + +------+ + | Care Transit Specialist Name | Role | Phone | [...] Alonso MD | | | | | [place], | | | | | | [place] [address] | | | | | | [phone] | | | +--------+--------+ + + + [...] | | | | | | [place] [address] | | | | | | [phone] | | | | | | | | +--------+---------+ + + + documented as of this encounter Visit Diagnoses Not on filedocumented in this encounter"
--- OUTSIDE RECORDS SUMMARY | ~2019-01-15 | XMS | Encounter Summary ---
Demographics + + + | Address | [address] | | | [place] [address] | + + + | Home Phone [...] Team Providers + +------+ + | Care Bacteriologist Soil Name | Role | Phone | + +------+ + | Juan Cherry DO | PCP | | + +------+ + Encounter Details +--------+ + + + + | Date | Type | Department | Care Team | Description | +--------+ + + + + | 08/30/ | Hospital | [facility] | Yecenia Gallegos | | | 2012 | Encounter | MED CTR EMERGENCY | Yinka Aguirre MD [address] | | | | | CENTER [address] | [facility] | | | | | [place], [place] | [place] [address] | | | | | [address] | [phone] | | | | | [phone] | | | +--------+ + + + [...] | | | | | | [facility]. | | | | | [...] [place] | | | | | | [address] | | | | | | | | +--------+---------+ + + + | 11/24/ | Office | Cardiology | Flores, | | | 2019 | Visit | | SINDHU Erickson [address] | | | | | | [place], | | | | | | [place] [address] | | | | | | [phone] | | | | | | | | +--------+---------+ + + + documented as of this encounter Visit Diagnoses Not on filedocumented in this encounter"
--- OUTSIDE RECORDS SUMMARY | ~2019-01-15 | XMS | Encounter Summary ---
Demographics + + + | Address | [address] | | | [place] [address] | + + + | Home Phone [...] Team Providers + +------+ + | Care Rugby Union Footballer Name | Role | Phone | + [...] + + | 11/20/ | Office | [facility] | Dre Gibson MD | Diverticulitis | | 2013 | Visit | CARE [address] | [address] | (Primary Dx); | | | | [place], [place] | [place] | Abdominal pain | | | | [address] | [address] | | | | | [phone] | | | +--------+---------+ + + + [...] color of the stools) Unexpected vaginal bleeding 7972-8077 [place] [address]. All rights reserve d. This information is [...] | | | | [place], [place] | | | | | | [address] | | | | | | | | +--------+---------+ + + + | 11/24/ | Office | Cardiology | [place], | | | 2019 | Visit | | SINDHU Erickson [address] | | | | | | [place], | | | | | | [place] [address] | | | | | | [phone] | | | | | | | [...] | 1.010 | | | | | [place], | | | | | | UA, [...]
--- OUTSIDE RECORDS SUMMARY | ~2019-01-15 | XMS | Encounter Summary ---
Demographics + + + | Address | [address] | | | [place] [address] | + + + | Home Phone [...] Team Providers + +------+ + | Care Bisque Brusher Name | Role | Phone | + [...] [address] | | | | | [place], | [place] | | | | | [place] [address] | [address] | | | | | [phone] | | | +--------+--------+ + + + [...] | | | | | | [place] [address] | | | | | | [phone] | | | | | | | | +--------+---------+ + + + documented as of this encounter Visit Diagnoses Not on filedocumented in this encounter"
--- OUTSIDE RECORDS SUMMARY | ~2019-01-15 | XMS | Encounter Summary ---
Demographics + + + | Address | [address] | | | [place] [address] | + + + | Home Phone [...] Providers + +------+ + | Care Interior Wirer Name | Role | Phone | + [...] + + | 08/14/ | Emergency | [facility] | Sonny Cesar MD | Sinus tachycardia | | 2018 | | MED CTR EMERGENCY | [address] | (Primary Dx) | | | | CENTER [address] | [place] | | | | | [place] | [address] | | | | | [address] | | | | | | [phone] | | | +--------+ + + + [...] | | | | | order to [facility]. | | | | | [...] | | | | | | [place] [address] | | | | | | [phone] | | | | | | | [...] [address] | [place] | [phone] | | [facility] | | [address] | | | - LABORATORY | | [...] | | | | | | [employer] | | | | [...] [address] | [place] | [phone] | | [facility] | | [address] | | | - LABORATORY | | [...] [address] | [place] | [phone] | | [facility] | | [address] | | | - LABORATORY | | [...] (L) | 7 - 18 mg/dL | DRIVER | | | | | | [facility] | | | | | | MEDICAL | | | | | | CENTER - | | | | | | LABORATORY | | + + + + + + | Creatinine | 0.84 | 0.60 - 1.30 | DRIVER | | | | | mg/dL | [facility] | | | | | | MEDICAL | | | | | | CENTER - | | | | | | LABORATORY | | + + + + + + | eGFR if not | >60Comment: GLOMERULAR | >=60 | [facility] | | | | FILTRATION | mL/min/1.73m2 | [facility] | | | AFGHAN | RATE,ESTIMATED | | MEDICAL | | | | mL/min/1.30s2Xwek than | | CENTER - | | [...] | | Protein | | | [facility] | | [...] + | [address] [facility] | [address] | [place] | [phone] | | [facility] | | [address] | | | - LABORATORY | | [...] | + + + + + | [address] | [address] | [place] | [phone] | | [facility] | | [address] | | | - LABORATORY | | [...] | | | | RAFA WELLS MD ([id number]) | | | | | | on [...] 3:01 | | | | | ONCE, [facility] 08/14/17 at 1500, For 1 | [...]
--- OUTSIDE RECORDS SUMMARY | ~2019-01-15 | XMS | Encounter Summary ---
Demographics + + + | Address | [address] | | | [place] [address] | + + + | Home Phone [...] Team Providers + +------+ + | Care Alligator Hunter Name | Role | Phone | [...] [address] | | | | | [place] | [facility] | | | | | [address] | [place] [address] | | | | | [phone] | [phone] | | | | | | | [...] [place] | | | | | | [address] | | | | | | | | +--------+---------+ + + + | 11/24/ | Office | Cardiology | [place], | | | 2019 | Visit | | SINDHU Erickson [address] | | | | | | [place], | | | | | | [place] [address] | | | | | | [phone] | | | | | | | | +--------+---------+ + + + documented as of this encounter Visit Diagnoses Not on filedocumented in this encounter"
--- OUTSIDE RECORDS SUMMARY | ~2019-01-15 | XMS | Encounter Summary ---
Demographics + + + | Address | [address] | | | [place] [address] | + + + | Home Phone [...] Team Providers + +------+ + | Care Avionics Integration Engineer Name | Role | Phone | [...] | | | | CENTER [address] | [address] [place] | encounter (Primary | | | | [place], [place] | [place] [address] | Dx); Fall at home, | | | | [address] | [phone] | initial encounter; | | | | [phone] | | Contusion of left | | [...] be sent through Care Everywhere.CONCUSSION, AFT ER (CONGOLESE)FRACTURE, NOSE, WITH X-RAY (CONGOLESE)documented in this encounter Medications at Time of [...] | | | | | [facility]. | | | | | | [...] | 0 | 10/13/19 | | | Rgwbtukcrn-IPCU-Ivbr | mouth as needed. | | | 16 | 7 | | -Cod [id number] MG | | | | | | [...] | | | | | | [place] [address] | | | | | | [phone] | | | | | | | [...] CT Maxillofacial wo Contrast (03/24/2016 10:54 AM [facility]) + + | Specimen | + [...]
--- OUTSIDE RECORDS SUMMARY | ~2019-01-15 | XMS | Encounter Summary ---
Demographics + + + | Address | [address] | | | [place] [address] | + + + | Home Phone [...] + | 07/24/ | Telephone | [facility] | Meghan Garcia MD | Follow-up | | 2019 | | SLEEP DISORDER [address] | [address] | | | | | [place] | [place] | | | | | [place] [address] | [address] | | | | | [phone] | | | +--------+ + + + [...] [place] | | | | | | [address] | | | | | | | | +--------+---------+ + + + | 11/24/ | Office | Cardiology | [place], | | | 2019 | Visit | | SINDHU Erickson [address] | | | | | | [place], | | | | | | [place] [address] | | | | | | [phone] | | | | | | | | +--------+---------+ + + + documented as of this encounter Visit Diagnoses Not on filedocumented in this encounter"
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
--- OUTSIDE RECORDS SUMMARY | ~2019-01-15 | XMS | Encounter Summary ---
Demographics + + + | Address | [address] | | | [place] [address] | + + + | Home Phone [...] Team Providers + +------+ + | Care Trapeze Artist Name | Role | Phone | [...] Groin pain, | MD Jared | [address] | | | | | right Hx | [address] | [place], | | | | | of coronary | [address] | [place] [address] | | | | | angiogram | [place], | Phone: | | | | | Peritoneal | [place] [address] | [phone] | | | | | bleeding | Phone: | Fax: | | | | | Procedures | [phone] | [phone] | | | | | CT Abdomen | Fax: | | | | | | Pelvis wo | [phone] | | | | | | Contrast [...] Groin pain, | MD Jared | [address] | | | | | right Hx | [address] | [place], | | | | | of coronary | [address] | [place] [address] | | | | | angiogram | [place], | Phone: | | | | | Peritoneal | [place] [address] | [phone] | | | | | bleeding | Phone: | Fax: | | | | | Procedures | [phone] | [phone] | | | | | CT Abdomen | Fax: | | | | | | Pelvis wo | [phone] | | | | | | Contrast | | | +--------+--------+ + + + + Encounter Details +--------+ + + + + | Date | Type | Department | Care Team | Description | +--------+ + + + + | 03/08/ | Hospital | [facility] | Jared Mcdonough, | Groin pain, right; | | 2014 | Encounter | MED CTR [address] | [address] | Hx of coronary | | | | [place], | [place], | angiogram; | | | | [place] [address] | [place] [address] | Peritoneal bleeding | | | | [phone] | [phone] | | | | | | | [...] | | | | | order to [facility]. | | | | | [...] [place] | | | | | | [address] | | | | | | | | +--------+---------+ + + + | 11/24/ | Office | Cardiology | [place], | | | 2020 | Visit | | SINDHU Erickson [address] | | | | | | [place], | | | | | | [place] [address] | | | | | | [phone] | | | | | | | [...] + | MISCELLANEOUS LAB | | | [phone] | + +---------+ + + | MISCELANIOUS LAB | | | [phone] | + +---------+ + + documented in [...]
--- OUTSIDE RECORDS SUMMARY | ~2019-01-15 | XMS | Encounter Summary ---
Demographics + + + | Address | [address] | | | [place] [address] | + + + | Home Phone [...] Providers + +------+ + | Care Marine Cargo Inspector Name | Role | Phone | [...] | SR | | | | | [phone] | | | +--------+ + + + [...] [place] | | | | | | [address] | | | | | | | | +--------+---------+ + + + | 11/24/ | Office | Cardiology | [place], | | | 2019 | Visit | | SINDHU Erickson [address] | | | | | | [place], | | | | | | [place] [address] | | | | | | [phone] | | | | | | | [...]
--- OUTSIDE RECORDS SUMMARY | ~2019-01-15 | XMS | Encounter Summary ---
Demographics + + + | Address | [address] | | | [place] [address] | + + + | Home Phone [...] Team Providers + +------+ + | Care Stabber Name | Role | Phone | + [...] [address] | RN | ([facility]); COPD (chronic | | | | [place], | | obstructive | | | | [place] [address] | | pulmonary disease) | | | | [phone] | | ([facility]) | +--------+ + + + + [...] | | | | | [facility] | | | | | | [address] | | | | | | | | +--------+---------+ + + + | 11/24/ | Office | Cardiology | [place], | | | 2019 | Visit | | SINDHU Erickson [address] | | | | | | [place], | | | | | | [place] [address] | | | | | | [phone] | | | | | | | [...]
--- OUTSIDE RECORDS SUMMARY | ~2019-01-15 | XMS | Encounter Summary ---
Demographics + + + | Address | [address] | | | [place] [address] | + + + | Home Phone [...] Team Providers + +------+ + | Care Dough Catcher Name | Role | Phone | + [...] Provider Unknown | | | | | [place], [place] | [phone] | | | | | [address] | | | | | | [phone] | | | +--------+ + + + [...] | | | | Jose R Snow [facility] | | | | | | [address] | | | | | | | | +--------+---------+ + + + | 11/24/ | Office | Cardiology | [place], | | | 2019 | Visit | | SINDHU Erickson [address] | | | | | | [place], | | | | | | [place] [address] | | | | | | [phone] | | | | | | | [...]
--- OUTSIDE RECORDS SUMMARY | ~2019-01-15 | XMS | Encounter Summary ---
Demographics + + + | Address | [address] | | | [place] [address] | + + + | Home Phone [...] Providers + +------+ + | Care Furnace Repair Mechanic Name | Role | Phone | [...] + + | 03/22/ | Office | [facility] [place] | Offenstein, | COPD exacerbation | | 2013 | Visit | PULMONARY [address] | Loreta Alonso MD | ([facility]) (Primary Dx); | | | | [place], | | Complex sleep apnea | | | | [place] [address] | | syndrome | | | | [phone] | | | +--------+---------+ + + + [...] Pulmonary [facility] [address] [place], [address] HPI Rosario Malik is a 48 y.o. 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 Please send orde r to [facility]. This is not a new [...] made to ensure accuracy; however, inadvertent computerized mine manager errors may be pre sent. documented in [...] | | | | | | [place] [address] | | | | | | [phone] | | | | | | | | +--------+---------+ + + + documented as of this encounter Visit Diagnoses + + | Diagnosis | + + | COPD exacerbation (HCC) - Primary Obstructive chronic bronchitis with exacerbation | + + | Complex sleep apnea syndrome Unspecified sleep apnea | + + documented in this encounter
--- OUTSIDE RECORDS SUMMARY | ~2019-01-15 | XMS | Encounter Summary ---
Demographics + + + | Address | [address] | | | [place] [address] | + + + | Home Phone [...] Team Providers + +------+ + | Care Entry Tech Name | Role | Phone | [...] | (obstructive | [address] | [place] | | | | | sleep | ST [place] | [place], | | | | | apnea) | [place], [place] | [place] [address] | | | | | Procedures | [address] | Phone: | | | | | MS POLYSOM | Phone: | [phone] | | | | | 6/>YRS SLEEP | [phone] | Fax: | | | | | 4/> ADDL | Fax: | [phone] | | | | | [place] ATTND | [phone] | | | | | | MS POLYSOM | | | | | | [...] | 08/03/ | Hospital | [facility] | Meghan Garcia MD | [place] (obstructive | | 2019 - | Encounter | MED CTR SLEEP | [address] | sleep apnea) | | | | CENTER [address] | [place] | | | 08/04/ | | [place] | [address] | | | 2018 | | [address] | | | | | | [phone] | | | +--------+ + + + [...] | | | | | | | [facility]. | | | | | [...] [place] | | | | | | [address] | | | | | | | | +--------+---------+ + + + | 11/24/ | Office | Cardiology | [place], | | | 2019 | Visit | | SINDHU Erickson [address] | | | | | | [place], | | | | | | [place] [address] | | | | | | [phone] | | | | | | | [...] Daisy Alonso [facility] | | | [place] [address] Polysomnogram | | | Report on Rosario [...] from Dr. Alarcon | | | in [place], [place]. It indicates that patient had CPAP [...] her COPD through her | | | stratigraphy teacher. We performed a CPAP titration study [...] | | | during sleep study as usual.Alarm Installer note: Patient continues to | | | [...] this chart may have been created with [employer] | | | voice recognition software. Occasional [...] this chart may have been created with [employer] voice | | |recognition software. Occasional wrong-word [...] PDT Daisy Al[facility] | | [place], [place] [id number] Report on Rosario Malik performed on August [...] | | notes from Dr. Alarcon in [place], [place]. It indicates that patient had | [...] the day for her COPD through her stratigraphy teacher.We performed a | | CPAP titration study [...] quality during | | sleep study as usual.Alarm Installer note: Patient continues to struggle with mask [...] this chart may have been created with [employer] voice recognition software. | | Occasional wrong-word [...]
--- OUTSIDE RECORDS SUMMARY | ~2019-01-15 | XMS | Encounter Summary ---
Demographics + + + | Address | [address] | | | [place] [address] | + + + | Home Phone [...] Providers + +------+ + | Care Production Finisher Name | Role | Phone | [...] + | 05/31/ | Telephone | [facility] | Kade Hoffman MD | Follow-up ( appt | | 2013 | | CARE [address] | [address] | for COPD | | | | [place] | [place] | exacerbation ) | | | | [address] | [address] | | | | | [phone] | | | +--------+ + + + [...] | | | | [place] | | | | | | [address] | | | | | | | | +--------+---------+ + + + | 11/24/ | Office | Cardiology | [place], | | | 2019 | Visit | | SINDHU Erickson [address] | | | | | | [place], | | | | | | [place] [address] | | | | | | [phone] | | | | | | | | +--------+---------+ + + + documented as of this encounter Visit Diagnoses Not on filedocumented in this encounter"
--- OUTSIDE RECORDS SUMMARY | ~2019-01-15 | XMS | Encounter Summary ---
Demographics + + + | Address | [address] | | | [place] [address] | + + + | Home Phone [...] Providers + +------+ + | Care Conference Planning Manager Name | Role | Phone [...] + + | 07/24/ | Office | [facility] | [place], | Palpitations | | 2018 | Visit | CARDIOLOGY [address] | SINDHU Erickson [address] | (Primary Dx); | | | | [place], | [place], | Paroxysmal atrial | | | | [place] [address] | [place] [address] | tachycardia (HCC); | | | | [phone] | [phone] | Other migraine | | | | [...] send order to [facility]. 1 each 0 Respiratory Therapy Supplies [facility] Change CPAP back to 11-14 cm H2O. All necessary suppl ies. No oxygen bleed in. Diagnosis Code(s)327.23. Length of Need: Lifetime. Please send orde r to [facility]. This is not a new order, [...] has lengthened Confirmed by CLAY MCDONOUGH MD ([id number]) on 05/06/2017 4:53:06 PM LAB RESULTS reviewed during visit today primarily from [facility]: LIPID Lab Results Component Value Date CHOLHDL [...] 417 (A) 03/18/2017 I reviewed records from [facility] for office visit on 04/2017 whic h [...] and v entricular function done at the [facility]. LVEF 78%. C. Holter Monitor 08/16/13 Underlying [...] She is in class II of the [employer] functional class. There are no [...] was seen at the ED of [facility] 3 weeks ago and again 1 week [...] is in a class I-II o f [employer] functional class. There is no [...] this chart may have been created with [employer] voice recognition software. Occasi onal wrong-word or [...] [place] | | | | | | [address] | | | | | | | | +--------+---------+ + + + | 11/24/ | Office | Cardiology | [place], | | | 2019 | Visit | | SINDHU Erickson [address] | | | | | | [place] | | | | | | [place] [address] | | | | | | [phone] | | | | | | | [...]
--- OUTSIDE RECORDS SUMMARY | ~2019-01-15 | XMS | Encounter Summary ---
Demographics + + + | Address | [address] | | | [place] [address] | + + + | Home Phone [...] Team Providers + +------+ + | Care Reverberatory Furnace Operator Name | Role | Phone [...] Provider Unknown | | | | | [place], [place] | [phone] | | | | | [address] | | | | | | [phone] | | | +--------+ + + + [...] | | | | | | | [facility]. | | | | | [...] R Snow [facility] | | | | | | [address] | | | | | | | | +--------+---------+ + + + | 11/24/ | Office | Cardiology | [place], | | | 2019 | Visit | | SINDHU Erickson [address] | | | | | | [place], | | | | | | [place] [address] | | | | | | [phone] | | | | | | | [...]
--- OUTSIDE RECORDS SUMMARY | ~2019-01-15 | XMS | Encounter Summary ---
Demographics + + + | Address | [address] | | | [place] [address] | + + + | Home Phone [...] Team Providers + +------+ + | Care Blade Balancer Name | Role | Phone | [...] | | | | | pulmonary | [address] | [address] | | | | | disease, | [place], | [place] | | | | | unspecified | [place] [address] | [place], [place] | | | | | COPD type | Phone: | [address] | | | | | (HCC) | [phone] | Phone: | | | | | Pulmonary | Fax: | [phone] | | | | | emphysema, | [phone] | Fax: | | | | | unspecified | | [phone] | | | | | emphysema | | | | | | | type ([facility]) | | | +--------+ + + + + + Encounter Details +--------+---------+ + + + | Date | Type | Department | Care Team | Description | +--------+---------+ + + + | 05/21/ | Office | [facility] | Sharonda Delmycaitie, | Chronic obstructive | | 2017 | Visit | MED CTR CARDIAC | [address] | pulmonary disease, | | | | REHABILITATION [address] | [address] [place], | unspecified COPD | | | | [address] [place] | [place] [id number] | type (HCC) (Primary | | | | [place] [address] | [phone] | Dx) | | | | [phone] | | | +--------+---------+ + + + [...] as of this encounter Progress Tricia Rahman, LAYOUT ARTIST - 05/21/2016 10:[address] [facility] CARDIAC REHABILITATION [address] [place] [id number] Cardiac Rehab Date: 05/21/2016 Patient Information Patient [...] | | | | [place] | | | | | | [id number] | | | | | | | | +--------+---------+ + + + | 11/24/ | Office | Cardiology | Garber, | | | 2019 | Visit | | GeorginaSINDHU reynoso [address] | | | | | | [place], | | | | | | [place] [id number] | | | | | | [phone] | | | | | | | | +--------+---------+ + + + documented as of this encounter Visit Diagnoses + + | Diagnosis | + + | Chronic obstructive pulmonary disease, unspecified COPD type (HCC) - Primary | + + documented in this encounter"
--- OUTSIDE RECORDS SUMMARY | ~2019-01-15 | XMS | Encounter Summary ---
Demographics + + + | Address | [address] | | | [place] [address] | + + + | Home Phone [...] + +------+ + | Care Physical Therapy Aides Teacher Name | Role | Phone | [...] [address] | | | | | [place], | [place], | | | | | [place] [address] | [place] [address] | | | | | [phone] | [phone] | | | | | | | [...] | 03/01/ | Office | Pulmonology | uMkul Clark MD | | | 2020 | Visit | | [address] | | | | | | [place] | | | | | | [address] | | | | | | | | +--------+---------+ + + + | 11/24/ | Office | Cardiology | Flores, | | | 2019 | Visit | | SINDHU Erickson [address] | | | | | | [place], | | | | | | [place] [address] | | | | | | [phone] | | | | | | | [...] ST. | [address] | [place] | [phone] | | [facility] | | [address] | | | - LABORATORY | | [...]
--- OUTSIDE RECORDS SUMMARY | ~2019-01-15 | XMS | Encounter Summary ---
Demographics + + + | Address | [address] | | | [place] [address] | + + + | Home Phone [...] Providers + +------+ + | Care Public Relations Professional Name | Role | Phone | + +------+ + | Juan Cherry DO | PCP | | + +------+ + Reason for Visit +--------+ + | Reason | Comments | +--------+ + | Other | referral to defensive secondary coach or dietian | +--------+ + Encounter Details +--------+ + + + + | Date | Type | Department | Care Team | Description | +--------+ + + + + | 04/03/ | Telephone | [facility] | Flores, | Other (referral to | | 2017 | | CARDIOLOGY [address] | SINDHU Erickson [address] | defensive secondary coach or | | | | [place], | [place], | dietian) | | | | [place] [address] | [place] [address] | | | | | [phone] | [phone] | | | | | | | [...] | | | | | | [place] [address] | | | | | | [phone] | | | | | | | | +--------+---------+ + + + documented as of this encounter Visit Diagnoses Not on filedocumented in this encounter"
--- OUTSIDE RECORDS SUMMARY | ~2019-01-15 | XMS | Encounter Summary ---
Demographics + + + | Address | [address] | | | [place] [address] | + + + | Home Phone [...] Team Providers + +------+ + | Care Agitator Operator Name | Role | Phone | [...] + | 08/23/ | Telephone | [facility] | Jared Mcdonough, | Records Request | | 2013 | | CARDIOLOGY [address] | MD [address] [place] | | | | | [place], | [place], | | | | | [place] [address] | [place] [address] | | | | | [phone] | [phone] | | | | | | | [...] [place] | | | | | | [address] | | | | | | | | +--------+---------+ + + + | 11/24/ | Office | Cardiology | [place], | | | 2019 | Visit | | SINDHU Erickson [address] | | | | | | [place] | | | | | | [place] [address] | | | | | | [phone] | | | | | | | | +--------+---------+ + + + documented as of this encounter Visit Diagnoses Not on filedocumented in this encounter"
--- OUTSIDE RECORDS SUMMARY | ~2019-01-15 | XMS | Encounter Summary ---
Demographics + + + | Address | [address] | | | [place] [address] | + + + | Home Phone [...] Providers + +------+ + | Care Motor Vehicle Licence Examiner Name | Role | Phone | [...] + + | 09/26/ | Telephone | [facility] | Kevin Sandoval, | Other (increased | | 2015 | | PULMONARY [address] | MD [address] | shortness of breath) | | | | [place], | [place], [place] | | | | | [place] [address] | [address] | | | | | [phone] | | | +--------+ + + + [...] [place] | | | | | | [address] | | | | | | | | +--------+---------+ + + + | 11/24/ | Office | Cardiology | Flores, | | | 2019 | Visit | | SINDHU Erickson [address] | | | | | | [place], | | | | | | [place] [address] | | | | | | [phone] | | | | | | | | +--------+---------+ + + + documented as of this encounter Visit Diagnoses Not on filedocumented in this encounter"
--- OUTSIDE RECORDS SUMMARY | ~2019-01-15 | XMS | Encounter Summary ---
Demographics + + + | Address | [address] | | | [place] [address] | + + + | Home Phone [...] Team Providers + +------+ + | Care Biotechnologist Name | Role | Phone | + [...] + + | 06/28/ | Office | [facility] UROLOGY | Andriy Weber | Cystitis, | | 2015 | Visit | [address] | MD [address] | interstitial | | | | [place] | [address] | (Primary Dx) | | | | [address] | [place] [address] | | | | | [phone] | [phone] | | | | | | | [...] takes this da rigoberto Respiratory Therapy Supplies [facility] Please provide patient with necessary CPAP supplies ( she did not specify, okay to send order as appropriate) Diagnosis Code(s)327.23 . Length of Need 99 months. Please send order to [facility]. 1 each 0 Respiratory Therapy Supplies [facility] Change CPAP back [...] Wt 78.926 kg (174 lb) | B IN 31.82 kg/m2 General: Awake, alert, in no [...] from a 14 F rench to 22 Bengali in size with [place] sounds to allow passage of the scope. [...] to dilate the urethra to a 22 Bengali. Although this may be a temp orary [...] have not thoroughly proofread this note, and toll repairer central office erro rs may occur. Edophil mented in this encounter Plan of Treatment +--------+---------+ + + + | Date | Type | Specialty | Care Team | Description | +--------+---------+ + + + | 03/01/ | Office | Pulmonology | Mukul Clark MD | | | 2019 | Visit | | [address] | | | | | | [place] | | | | | | [address] | | | | | | | | +--------+---------+ + + + | 11/24/ | Office | Cardiology | [place], | | | 2019 | Visit | | SINDHU Erickson [address] | | | | | | [place], | | | | | | [place] [address] | | | | | | [phone] | | | | | | | [...] | Glut-Rig | | mg, Intramuscular, ONCE, Craey | | 16 3:12 | | | ht | | 06/29/15 at 0930, For 1 dose, | | PM PDT | | | | | Indications: Infection | | | | | | + +--------+ +-------+------+ + +---+---+ | | | +---+---+ documented in this encounter
--- OUTSIDE RECORDS SUMMARY | ~2019-01-15 | XMS | Encounter Summary ---
Demographics + + + | Address | [address] | | | [place] [address] | + + + | Home Phone [...] Team Providers + +------+ + | Care Hamper Maker Name | Role | Phone | [...] Headache | Shashi Witt, | [address] | | | | | Pituitary | MD Need | [place], | | | | | tumor | updated | [place] | | | | | Procedures | address | [address] | | | | | CT Head w wo | | Phone: | | | | | Contrast | | [phone] | | | | | | | Fax: | | | | | | | [phone] | +--------+--------+ + + + + Reason [...] Headache | Shashi Witt, | [address] | | | | | Pituitary | MD Need | [place], | | | | | tumor | updated | [place] | | | | | Procedures | address | [address] | | | | | CT Head w wo | | Phone: | | | | | Contrast | | [phone] | | | | | | | Fax: | | | | | | | [phone] | +--------+--------+ + + + + Encounter Details +--------+ + + + + | Date | Type | Department | Care Team | Description | +--------+ + + + + | 12/17/ | Hospital | [facility] | Shashi Segovia | Headache; | | 2013 | Encounter | MED CTR CT [address] | MD Miryam Need updated | Pituitary tumor | | | | [place], | address | | | | | [place] [address] | | | | | | [phone] | | | +--------+ + + + [...] | | send order to [facility] | | | | | | | [...] [place] | | | | | | [address] | | | | | | | | +--------+---------+ + + + | 11/24/ | Office | Cardiology | Flores, | | | 2019 | Visit | | SINDHU Erickson [address] | | | | | | [place], | | | | | | [place] [address] | | | | | | [phone] | | | | | | | [...] + | MISCELLANEOUS LAB | | | [phone] | + +---------+ + + | MISCELANIOUS LAB | | | [phone] | + +---------+ + + documented in [...]
--- OUTSIDE RECORDS SUMMARY | ~2019-01-15 | XMS | Encounter Summary ---
Demographics + + + | Address | [address] | | | [place] [address] | + + + | Home Phone [...] Team Providers + +------+ + | Care Customs Compliance Specialist Name | Role | Phone | [...] + + | 07/14/ | Office | [facility] | Elda Miranda | Asthma exacerbation | | 2012 | Visit | [facility]IENT [facility]ARE [address] | MD H[address] | (Primary Dx) | | | | [facility] | [place] | | | | | [place] | [place] [address] | | | | | [address] | [phone] | | | | | [phone] | | | +--------+---------+ + + + [...] dyspnea. Lungs clear. Assessment: 1. Asthma exacerbation VT INHAL RX, AIRWAY OBST/DX SPUTUM INDUCT, albuterol [...] | | | | | | [place] [address] | | | | | | [phone] | | | | | | | [...]
--- OUTSIDE RECORDS SUMMARY | ~2019-01-15 | XMS | Encounter Summary ---
Demographics + + + | Address | [address] | | | [place] [address] | + + + | Home Phone [...] Team Providers + +------+ + | Care Drywaller Name | Role | Phone | + [...] | | | | Insomnia due | [address] | | | | | | to medical | [place], | | | | | | condition | [place] [address] | | | | | | History of | Phone: | | | | | | bipolar | [phone] | | | | | | disorder | Fax: | | | | | | Procedures | [phone] | | | | | | HIM [...] + + | 05/16/ | Office | [facility] [place] | Aaron Rodriguez, | Concussion with | | 2016 | Visit | PHYSIATRY [address] | MD [address] | brief loss of | | | | [place], | [place], [place] | consciousness | | | | [place] [address] | [address] | (Primary Dx); | | | | [phone] | | Post-concussion | | | | [...] she was seen by a counselor at [facility] yesterday, al though she does not feel [...] is thinking about suicide she will seek [facility] help. Rosario Malik reports sleep [...] [facility] [place]) 10/28/2012 Overview: Managed by [facility] along with hypothyroidism Osteoarthritis Tachycardia Asthma Emphysema Migraine Sleep apnea uses BiPAP Oxygen dependent uses 2.5 liters most of the time Past Surgical History Past Surgical History Procedure Laterality Date Hammer toe surgery right sided Hiatal hernia repair Hiatal hernia Kirk and bso Ovarian cysts, not cancer Colonoscopy 03/2010 Colonoscopy 1995 [facility] Knee surgery right Wrist surgery right Hysterectomy Other surgical history 02/28/2014 [facility] with Radial approach; Laterality: Left; Surgeon: Jared Mcdonough MD; Location: [facility] CARDIO VASCULAR LAB Tonsillectomy Age 6 Turbt N/A 11/22/2015 Procedure: Cystoscopy, Hydrodistention & Bladder Biopsy; Surgeon: Yinka Melendez; Location: [facility] MAIN OR Hernia repair 11/29/2015 [facility] Family History: Family History Problem Relation [...] 1 Years of Education: 13 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 360 mL 5 Euhadilorf-VJAL-Ljug-Cod 32-910-54-30 MG CAPS Take 1 capsule by mouth [...] takes this da rigoberto Respiratory Therapy Supplies [facility] Please provide patient with necessary CPAP supplies ( she did not specify, okay to send order as appropriate) Diagnosis Code(s)327.23 . Length of Need 99 months. Please send order to [facility]. 1 each 0 Respiratory Therapy Supplies [facility] [...] suicidal ideation. She has suicide contract with [facility]. She agrees to seek emergent medical attention if she is having suicidal thoughts. She camron es suicidal intent at this time. 2. Patient encouraged to continue care at [facility] until she is able to see [...] [place] | | | | | | [address] | | | | | | | | +--------+---------+ + + + | 11/24/ | Office | Cardiology | [place], | | | 2019 | Visit | | SINDHU Erickson [address] | | | | | | [place], | | | | | | [place] [address] | | | | | | [phone] | | | | | | | [...]
--- OUTSIDE RECORDS SUMMARY | ~2019-01-15 | XMS | Encounter Summary ---
Demographics + + + | Address | [address] | | | [place] [address] | + + + | Home Phone [...] Team Providers + +------+ + | Care Territory Development Manager Name | Role | Phone [...] + + | 05/13/ | Office | [facility] UR[facility] | Andriy Weber | Pyuria (Primary Dx); | | 2017 | Visit | [address] | MD [address] | Interstitial | | | | [place] | [address] | cystitis | | | | [address] | [place] [address] | | | | | [phone] | [phone] | | | | | | | [...] history of Adrenal insufficiency ([facility]); Anxiety; Asthma; 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 Length of Need 99 months. Please send order to [facility]. 1 each 0 Respiratory Therapy Supplies [facility] Change CPAP back to [...] of instillation, we can use a 20 Burundian catheter to determine urethral patency. I suggested [...] t is made to edit the content, evaluation analyst errors may occur. Occasional wrong- word or [...] | | | | [place], [place] | | | | | | [address] | | | | | | | | +--------+---------+ + + + | 11/24/ | Office | Cardiology | [place], | | | 2019 | Visit | | SINDHU Erickson [address] | | | | | | [place], | | | | | | [place] [address] | | | | | | [phone] | | | | | | | [...] 1.001 - 1.030 | | | | [place], | | | | | | [facility], [...] [address] | [place] | [phone] | | [facility] | | [address] | | | - LABORATORY | | [...]
--- OUTSIDE RECORDS SUMMARY | ~2019-01-15 | XMS | Encounter Summary ---
Demographics + + + | Address | [address] | | | [place] [address] | + + + | Home Phone [...] Team Providers + +------+ + | Care Proof Reader Name | Role | Phone | [...] | | CARDIOLOGY [address] | Georgina, [facility] [address] | tachycardia (HCC); | | | | [place], | [place], | Encounter for lipid | | | | [place] [address] | [place] [address] | screening for | | | | [phone] | [phone] | cardiovascular | | | | | [...] [place] | | | | | | [address] | | | | | | | | +--------+---------+ + + + | 11/24/ | Office | Cardiology | [place], | | | 2019 | Visit | | SINDHU Erickson [address] | | | | | | [place], | | | | | | [place] [address] | | | | | | [phone] | | | | | | | | +--------+---------+ + + + documented as of this encounter Visit Diagnoses + + | Diagnosis | + + | Paroxysmal atrial tachycardia (HCC) Paroxysmal supraventricular tachycardia | + + | Encounter for lipid screening for cardiovascular disease | + + documented in this encounter"
--- OUTSIDE RECORDS SUMMARY | ~2019-01-15 | XMS | Encounter Summary ---
Demographics + + + | Address | [address] | | | [place] [address] | + + + | Home Phone [...] Providers + +------+ + | Care Program Advocate Name | Role | Phone | + +------+ + | Juan Cherry DO | PCP | | + +------+ + Encounter Details +--------+ + + + + | Date | Type | Department | Care Team | Description | +--------+ + + + + | 09/09/ | Hospital | [facility] | Conversion | Pain | | 2015 | Encounter | CONVERSION [address] | Transaction, | | | | | [address] | Provider Unknown | | | | | [place], [place] | [phone] | | | | | [address] | | | | | | [phone] | | | +--------+ + + + [...] | | | | [facility]. | | | | | | [...] [place] | | | | | | [address] | | | | | | | | +--------+---------+ + + + | 11/24/ | Office | Cardiology | [place], | | | 2019 | Visit | | SINDHU Erickson [address] | | | | | | [place], | | | | | | [place] [address] | | | | | | [phone] | | | | | | | [...]
--- OUTSIDE RECORDS SUMMARY | ~2019-01-15 | XMS | Encounter Summary ---
Demographics + + + | Address | [address] | | | [place] [address] | + + + | Home Phone [...] Providers + +------+ + | Care Hearing Stenographer Name | Role | Phone | + [...] + + | 09/07/ | Office | [facility] [place] | Offenstein, | COPD exacerbation | | 2012 | Visit | PULMONARY [address] | Loreta Alonso MD | ([facility]) (Primary Dx); | | | | [place], | | Sleep apnea; | | | | [place] [address] | | Allergic rhinitis; | | | | [phone] | | Insomnia | +--------+---------+ + + [...] still having dizziness, let Dr. Cherry know. Labor Utilization Superintendent at [facility]: Ruben Tucker MD documented in this encounter Progress Notes Loreta London MD - 09/07/2012 10:42 AM PDTFormatting of this note might be differe nt from the original. Sleep Follow Up MD [place] Pulmonary and Critical Care [facility] [address] [place], [address] [facility] Rosario Malik is a 47 y.o. [...] planning on her d ad driving to [place]. 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 CC: Juan Cherry Portions of this report were transcribed using voice recognition software. Every effort wa s made to ensure accuracy; however, inadvertent computerized manufacturing maintenance technician errors may be pre sent. documented [...] | | | | | | [place] [address] | | | | | | [phone] | | | | | | | [...]
--- OUTSIDE RECORDS SUMMARY | ~2019-01-15 | XMS | Encounter Summary ---
Demographics + + + | Address | [address] | | | [place] [address] | + + + | Home Phone [...] Providers + +------+ + | Care Concrete Batching Plant Operator Name | Role | Phone | + +------+ + | Juan Cherry DO | PCP | | + +------+ + Encounter Details +--------+ + + + + | Date | Type | Department | Care Team | Description | +--------+ + + + + | 02/27/ | Hospital | [facility] | Mukul Clark MD | Pulmonary emphysema, | | 2017 | Encounter | MED CTR PULMONARY | [address] | unspecified | | | | FUNCTION [address] | [place] | emphysema type (HCC) | | | | [place], | [address] | | | | | [place] [address] | | | | | | [phone] | | | +--------+ + + + [...] | 0 | 10/13/19 | | | [facility] | mouth as needed. | | | 16 | 7 | | -Cod 41-402-14-30 MG | | | | | | [...] [place] | | | | | | [id number] | | | | | | | | +--------+---------+ + + + | 11/24/ | Office | Cardiology | [place], | | | 2019 | Visit | | SINDHU Erickson [address] | | | | | | [place] | | | | | | [place] [address] | | | | | | [phone] | | | | | | | [...]
--- OUTSIDE RECORDS SUMMARY | ~2019-01-15 | XMS | Encounter Summary ---
Demographics + + + | Address | [address] | | | [place] [address] | + + + | Home Phone [...] Team Providers + +------+ + | Care Compressor Station Engineer Name | Role | Phone | [...] + + | 05/30/ | Office | [facility] | Guru Henao | Acute pain of right | | 2018 | Visit | CARE [address] | MD Aleyda [address] | wrist (Primary Dx); | | | | [place] | [place] | Osteoarthritis of | | | | [address] | [address] | first | | | | [phone] | | carpometacarpal | | | | [...] thumb and fingers, unscrew a jar lid, clinical staff anesthesiologist an object, or turn a door handle or a mccallum. You may find yourself dropping things. Weather may also make the thumb sage t. The joint may swell. With time the thumb may become stiff or deformed. Date Last Reviewed: 06/24/201619994502-2259 [employer] [place] [address]. All righ ts reserved. This information is not intended as a substitute for professional medical care. Always follow your healthcare professional's instructions. documented in this encounter Progress Notes Jayce Ya, Bundle Shaker - 05/30/2017 8:15 AM PDTVerified name and [...] [place] | | | | | | [id number] | | | | | | | | +--------+---------+ + + + | 11/24/ | Office | Cardiology | [place], | | | 2019 | Visit | | SINDHU Erickson [address] | | | | | | [place], | | | | | | [place] [address] | | | | | | [phone] | | | | | | | | +--------+---------+ + + + documented as of this encounter Visit Diagnoses + + | Diagnosis | + + | Acute pain of right wrist - Primary | + + | Osteoarthritis of first carpometacarpal (CMC) joint of one hand | + + documented in this encounter
--- OUTSIDE RECORDS SUMMARY | ~2019-01-15 | XMS | Encounter Summary ---
Demographics + + + | Address | [address] | | | [place] [address] | + + + | Home Phone [...] Providers + +------+ + | Care Field Engineer Name | Role | Phone | [...] | | | | | [address] [place] | | | | | | [place] [address] | | | | | | [phone] | | | +--------+ + + + [...] Weber, PT - 02/14/2014 1:17 PM [facility] [address] [place] [address] Physical Therapy Discharge Note Date: 02/14/2014 Patient [...] | | | | | | [place] [address] | | | | | | [phone] | | | | | | | | +--------+---------+ + + + documented as of this encounter Visit Diagnoses Not on filedocumented in this encounter"
--- OUTSIDE RECORDS SUMMARY | ~2019-01-15 | XMS | Encounter Summary ---
Demographics + + + | Address | [address] | | | [place] [address] | + + + | Home Phone [...] + +------+ + | Care Gear Shaper Set Up Operator Name | Role | [...] CENTER) (Primary Dx); | | | | [place], | | [place]ARR[place] (obstructive | | | | [place] [address] | | sleep apnea); | | | | [phone] | | Central sleep apnea; | | [...] MD [facility] [address] [place], [address] HPI Rosario Malik is a 48 y.o. [...] left her on the Spiriva (started in [place]), and continued Adva ir. 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 Please send order to [facility]. 1 each 0 Respiratory Therapy [...] Data: CPAP Data: Dates: 09/29/12-12/27/12 Machine type: Gozent auto CPAP Home Health Company: [employer] CPAP Pressure: 11-14 cmH2O Median Titrated Pressure: 11.6 cmH2O 95%tile Pressure: 13.7 cmH2O Maximum Pressure: 13.9 cmH2O AHI: 2.4 events/hour Total number of days: 90 Number of days used: 80 Median daily usage: 4:27 hours Percent of days used for more than 4 hours: 48 % Median leak: 0.0 L/min Records from [place] ER visits and clinic visits are reviewed. It is noted that she did ac tually go off of her medications for a period of time when she moved. Immunization History Administered Date(s) Administered INFLUENZA, >= 4YO W/PRESERVATIVE IM 12/12/2010 INFLUENZA, PRESERVATIVE FREE IM 12/13/2011, 11/27/2012 Pneumococcal (Adult) 02/24/2011 Tdap 01/22/2008 Assessment 1. COPD exacerbation - On prednisone. Poor medication compliance, here and in [place]. We have ordered her Spiriva. I told [...] made to ensure accuracy; however, inadvertent computerized indian trader errors may be pre sent. documented in [...] W | | | | | | [place], | | | | | | [place] [address] | | | | | | [phone] | | | | | | | [...]
--- OUTSIDE RECORDS SUMMARY | ~2019-01-15 | XMS | Encounter Summary ---
Demographics + + + | Address | [address] | | | [place] [address] | + + + | Home Phone [...] Team Providers + +------+ + | Care Prints And Drawings Curator Name | Role | Phone | [...] | sleep apnea) | | | | [place], | | | | | | [place] [address] | | | | | | [phone] | | | +--------+ + + + [...] [place] | | | | | | [address] | | | | | | | | +--------+---------+ + + + | 11/24/ | Office | Cardiology | [place], | | | 2020 | Visit | | SINDHU Erickson [address] | | | | | | [place], | | | | | | [place] [address] | | | | | | [phone] | | | | | | | | +--------+---------+ + + + documented as of this encounter Visit Diagnoses + + | Diagnosis | + + | GARRY (obstructive sleep apnea) Obstructive sleep apnea (adult) (pediatric) | + + documented in this encounter"
--- OUTSIDE RECORDS SUMMARY | ~2019-01-15 | XMS | Encounter Summary ---
Demographics + + + | Address | [address] | | | [place] [address] | + + + | Home Phone [...] Organization | [facility] | | | [...] Providers + +------+ + | Care Patient Safety Coordinator Name | Role | Phone | [...] + + | 12/23/ | Office | [facility] | [place], | Palpitations; | | 2019 | Visit | CARDIOLOGY [address] | SINDHU Erickson [address] | Paroxysmal atrial | | | | [place], | [place], | tachycardia (HCC); | | | | [place] [address] | [place] [address] | Pericarditis, | | | | [phone] | [phone] | unspecified | | | | | [...] mg by mouth Daily. Respiratory Therapy Supplies [facility] Please provide patient with necessary CPAP supplies ( she did not specify, okay to send order as appropriate) Diagnosis Code(s)327.23 . Length of Need 99 months. Please send order to [facility]. 1 each 0 Respiratory Therapy Supplies [facility] Change CPAP back to 11-14 cm H2O. All necessary suppl ies. No oxygen bleed in. Diagnosis Code(s)327.23. Length of Need: Lifetime. Please send orde r to [facility]. This is not a new [...] reviewed during visit today primarily from [facility]: LIPID Lab Results Component Value Date [...] the HPI RESULTS- I reviewed reports from [facility]: Above data and testing is reviewed this [...] and v entricular function done at the [facility]. LVEF 78%. [...] She is in class I of the [facility] sociation functional class. 2. Hypotensionsecondary [...] done prior by another provider. Lizy Vásquez, Hvac Operations Technician am acting as a scribe on behalf of, and in the presenc e of SINDHU Vang. - Lizy Nieto Hvac Operations Technician 12/23/2018 14:27 I, SINDHU Vang, personally performed the services described in this documentati on, as scribed in my presence and it is both accurate and complete. -SINDHU Vang 12/23/2018 Portions of this chart may have been created with [employer] voice recognition software. Occasi onal wrong-word or [...] [place] | | | | | | [address] | | | | | | | | +--------+---------+ + + + | 11/24/ | Office | Cardiology | [place], | | | 2019 | Visit | | SINDHU Erickson [address] | | | | | | [place], | | | | | | [place] [address] | | | | | | [phone] | | | | | | | [...] MD | | | | | | ([id number]) on 12/23/2018 | | | | | [...]
--- OUTSIDE RECORDS SUMMARY | ~2019-01-15 | XMS | Encounter Summary ---
Demographics + + + | Address | [address] | | | [place] [address] | + + + | Home Phone [...] Providers + +------+ + | Care Programmer Developer Name | Role | Phone | + +------+ + | Juan Cherry DO | PCP | | + +------+ + Encounter Details +--------+ + + + + | Date | Type | Department | Care Team | Description | +--------+ + + + + | 12/22/ | Hospital | [facility] | Yecenia Gallegos | | | 2012 - | Encounter | MED CTR MEDICAL | Yinka Aguirre MD [address] | | | | | [address] [place] | [facility] | | | 12/24/ | | [place] [address] | [place] [address] | | | 2012 | | [phone] | [phone] John, | | | | | | [...] Lucian Lopez MD - 12/24/2012 10:13 AM [place], [place] [address] Patient Name: JADYN SCHMITZ Provider: Lucian Lopez MD Unit #: [id number] Location[facility] : 1965 ADMISSION DATE: 12/22/2012 DISCHARGE DATE: 12/24/2012 PRIMARY CARE PROVIDER: Juan Cherry DO. PRODUCE SHIPPER: Loreta London MD. DISCHARGING PHYSICIAN: Lucian Lopez MD. DISCHARGE DIAGNOSES 1. ACUTE EXACERBATION OF CHRONIC OBSTRUCTIVE PULMONARY DISEASE. IMPROVED. 2. DEPRESSION/FIBROMYALGIA. 3. HYPOTHYROIDISM. 4. OBSTRUCTIVE SLEEP APNEA. HISTORY OF PRESENT ILLNESS: Please refer to the history and physical examination note dicta kelley on 12/22. 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 She came in with shortness of [...] BY: Lucian Lopez MD Hospitalist JOB #: [id number] EXT JOB #:[id number] EDITED: 12/27/2012 07:16 <<Signature on File>> Lucian [...] | | | | | | [place] [address] | | | | | | [phone] | | | | | | | [...] + | [facility] | [address] | [place] | [phone] | | [facility] | | [address] | | | - LABORATORY | | | | + + + + + | [facility] | [address] | [place], [place] | | | [facility] | | [address] | | | - LABORATORY | | [...] | [address] | [place] | [phone] | | [facility] | | [address] | | | - LABORATORY | | | | + + + + + | [facility] | [address] | [place], [place] | | | [facility] | | [address] | | | - LABORATORY | | [...] + | [facility] | [address] | [place] | [phone] | | [facility] | | [address] | | | - LABORATORY | | | | + + + + + | [facility] | [address] | [place] | | | [facility] | | [address] | | | - LABORATORY | | [...] + | [facility] | [address] | [place] | [phone] | | [facility] | | [address] | | | - LABORATORY | | | | + + + + + | [facility] | [address] | [place] | | | [facility] | | [address] | | | - LABORATORY | | | | + + + + + XR Chest AP Portable (12/22/2012 12:40 PM PDT) + + | Specimen | + + | | + + + + + | Narrative | Performed At | + + + | [facility] | [facility] | | Department [address] , [place] | [facility] | | [ rep [address]] [ rep [facility] | | st zip] Signed | - IMAGING | | | | | Patient Name: JADYN SCHMITZ | | | Physician: JAZMYN : 1965 Age: 47 Sex: F Unit | | | #: [id number] Exam Date: 12/22/12 Location: | | | [address] [place] [address] Report #: [id number] Page: | | | %(RAD)RES..mtdd.print.filter("pg") of %(RAD) | | | RES..mtdd.print.filter("tpg") | | | | | | Accession Number: [id number] | | | CHEST PORTABLE CLINICAL HISTORY: [...] | | | Transcribed Date/Time: 12/22/2012 13:10 Shipfitter Helper: | | | <<Signature on File>> | | | Kobe | | | MD Tor12/22/12 142 <Electronically signed by Kobe Lentz MD> | | | Kobe Lentz MD 12/22/12 1240 Shipfitter Helper: Webbrianx | | | Kuslvsrbihvqc87/29/13 1310 Yecenia Gallegos MD | | | | | + + + + + + + + | Performing | Address | City/State/Zipcode | Phone Number | | Organization | | | | + + + + + | [facility] | [address] | [place] | [phone] | | [facility] | | [address] | | | - IMAGING | | [...] | | | | g/dL | [facility] | | | | [...] [address] | [place] | [phone] | | [facility] | | [address] | | | - LABORATORY | | | | + + + + + | [facility] | [address] | [place] | | | [facility] | | [address] | | | - LABORATORY | | [...] 11 | 7 - 18 mg/dL | [facility] | | | | | | [facility] | | | | | | MEDICAL | | | | | | CENTER - | | | | | | LABORATORY | | + + + + + + | Creatinine | 0.81 | 0.60 - 1.30 | [facility] | | | | | mg/dL | [facility] | | | | | | MEDICAL | | | | | | CENTER - | | | | | | LABORATORY | | + + + + + + | Estimated | >60Comment: For | >60 mL/min/A | [facility] | | | GFR | -Americans, | [...] + | [facility] | [address] | [place] | [phone] | | [facility] | | [address] | | | - LABORATORY | | | | + + + + + | [facility] | [address] | [place] | | | [facility] | | [address] | | | - LABORATORY | | | | + + + + + documented in this encounter Visit Diagnoses Not on filedocumented in this encounter
--- OUTSIDE RECORDS SUMMARY | ~2019-01-15 | XMS | Encounter Summary ---
Demographics + + + | Address | [address] | | | [place] [address] | + + + | Home Phone [...] Team Providers + +------+ + | Care Refinery Operator Assistant Name | Role | Phone [...] + | 11/03/ | Telephone | [facility] | Kevin Sandoval, | Shortness of Breath | | 2013 | | PULMONARY [address] | MD [address] | | | | | [place], | [place] | | | | | [place] [address] | [address] | | | | | [phone] | | | +--------+ + + + [...] | | | | | | [place] [address] | | | | | | [phone] | | | | | | | | +--------+---------+ + + + documented as of this encounter Visit Diagnoses Not on filedocumented in this encounter"
--- OUTSIDE RECORDS SUMMARY | ~2019-01-15 | XMS | Encounter Summary ---
Demographics + + + | Address | [address] | | | [place] [address] | + + + | Home Phone [...] Providers + +------+ + | Care Meat Boner And Slicer Name | Role | Phone | + +------+ + PCP | Unavailable | + +------+ + Encounter Details +--------+ + + + + | Date | Type | Department | Care Team | Description | +--------+ + + + + | 10/17/ | Hospital | [facility] | Kevin Worthy | | | 2010 | Encounter | MED CTR MP INTRA OP | MD Ginny [address] | | | | | [address] | [address] [place], [place] | | | | | [place], [place] | [address] | | | | | [address] | | | | | | [phone] | | | +--------+ + + + [...] [place] | | | | | | [address] | | | | | | | | +--------+---------+ + + + | 11/24/ | Office | Cardiology | [place], | | | 2019 | Visit | | SINDHU Erickson [address] | | | | | | [place], | | | | | | [place] [address] | | | | | | [phone] | | | | | | | | +--------+---------+ + + + documented as of this encounter Visit Diagnoses Not on filedocumented in this encounter"
--- OUTSIDE RECORDS SUMMARY | ~2019-01-15 | XMS | Encounter Summary ---
Demographics + + + | Address | [address] | | | [place] [address] | + + + | Home Phone [...] Team Providers + +------+ + | Care Limousine And Hearse Upholsterer Name | Role | Phone | [...] | apnea (adult) | | | | [place], | | (pediatric) (Primary | | | | [place] [address] | | Dx) | | | | [phone] | | | +--------+ + + + [...] [place] | | | | | | [address] | | | | | | | | +--------+---------+ + + + | 11/24/ | Office | Cardiology | [place], | | | 2019 | Visit | | SINDHU Erickson [address] | | | | | | [place], | | | | | | [place] [address] | | | | | | [phone] | | | | | | | | +--------+---------+ + + + documented as of this encounter Visit Diagnoses + + | Diagnosis | + + | Obstructive sleep apnea (adult) (pediatric) - Primary | + + documented in this encounter"
--- OUTSIDE RECORDS SUMMARY | ~2019-01-15 | XMS | Encounter Summary ---
Demographics + + + | Address | [address] | | | [place] [address] | + + + | Home Phone [...] Team Providers + +------+ + | Care Sulky Driver Name | Role | Phone | [...] + + | 11/20/ | Office | [facility] | Dre Gibson MD | Diverticulitis | | 2013 | Visit | CARE [address] | [address] | (Primary Dx); | | | | [place], [place] | [place] | Abdominal pain | | | | [address] | [address] | | | | | [phone] | | | +--------+---------+ + + + [...] color of the stools) Unexpected vaginal bleeding 4830-[address] [place] [address]. All rights reserve d. This information is not intended as a substitute for professional medical care. Always fo llow your healthcare professional's instructions. CLEAR LIQUIDS BY MOUTH FOR 24 HOURS YOU SHOULD HAVE IMPROVEMENT WITHIN 48-72 HOURS RETURN FOR RE-EVALUATION FOR MORE SEVERE PAIN, HIGH FEVER, BLEEDING; documented in this encounter Progress Notes Dre Gbison MD - 11/20/2013 11:05 AM PDT Subjective: [...] | | | | [place], [place] | | | | | | [address] | | | | | | | | +--------+---------+ + + + | 11/24/ | Office | Cardiology | [place], | | | 2019 | Visit | | SINDHU Erickson [address] | | | | | | [place], | | | | | | [place] [address] | | | | | | [phone] | | | | | | | [...] | 1.010 | | | | | [place], | | | | | | [facility], [...]
--- OUTSIDE RECORDS SUMMARY | ~2019-01-15 | XMS | Encounter Summary ---
Demographics + + + | Address | [address] | | | [place] [address] | + + + | Home Phone [...] Providers + +------+ + | Care Personal Care Assistant Name | Role | Phone [...] Alonso MD | | | | | [place], | | | | | | [place] [address] | | | | | | [phone] | | | +--------+--------+ + + + [...] [place] | | | | | | [address] | | | | | | | | +--------+---------+ + + + | 11/24/ | Office | Cardiology | [place], | | | 2019 | Visit | | SINDHU Erickson [address] | | | | | | [place] | | | | | | [place] [address] | | | | | | [phone] | | | | | | | | +--------+---------+ + + + documented as of this encounter Visit Diagnoses Not on filedocumented in this encounter"
--- OUTSIDE RECORDS SUMMARY | ~2019-01-15 | XMS | Encounter Summary ---
Demographics + + + | Address | [address] | | | [place] [address] | + + + | Home Phone [...] Team Providers + +------+ + | Care Edge Grinder Machine Name | Role | Phone | [...] MED CTR CARDIAC | MD [address] | unspecified | | | | REHABILITATION [address] | [place], | emphysema type (HCC) | | | | [address] [place] | [place] [address] | (Primary Dx); | | | | [place] [address] | [phone] | Chronic obstructive | | | | [phone] | | pulmonary disease, | | | [...] | | | | | | [place] [address] | | | | | | [phone] | | | | | | | [...]
--- OUTSIDE RECORDS SUMMARY | ~2019-01-15 | XMS | Encounter Summary ---
Demographics + + + | Address | [address] | | | [place] [address] | + + + | Home Phone [...] Providers + +------+ + | Care Staff Auditor Name | Role | Phone | + +------+ + | Ozzy Delcid MD | PCP | | + +------+ + Encounter Details +--------+ + + + + | Date | Type | Department | Care Team | Description | +--------+ + + + + | 07/03/ | Hospital | [facility] | Freddy Hill | | | 2011 | Encounter | MED CTR EMERGENCY | MD JAMARI [address] | | | | | CENTER [address] | [place] | | | | | [place], [place] | [place] [address] | | | | | [address] | [phone] | | | | | [phone] | | | +--------+ + + + [...] | | | | | | [place] [address] | | | | | | [phone] | | | | | | | [...] Performed At | + + + | [facility] Diagnostic Imaging Department | [facility] | | [address] [facility] | [facility] | | PORTABLE CHEST CLINICAL [...] Transcribed Date/Time: 07/05/2011 | | | 10:46 Fiber Optics Supervisor: <Electronically Signed by Cesar Singh | | | MD Mikal> 07/05/11 1343 | | + + + + + | Procedure Note | + + | Reed, Rad Conversion - 04/02/2013 5:18 PM [facility] | | Diagnostic Imaging Department [address] [facility] | | PORTABLE CHEST CLINICAL HISTORY: SHORTNESS [...] 10:29 | |Transcribed Date/Time: 07/05/2011 10:46 | |Fiber Optics Supervisor: | |<Electronically Signed by Cesar Ren MD> [...]
--- OUTSIDE RECORDS SUMMARY | ~2019-01-15 | XMS | Encounter Summary ---
Demographics + + + | Address | [address] | | | [place] [address] | + + + | Home Phone [...] Team Providers + +------+ + | Care Ferryboat Operator Helper Name | Role | Phone [...] | | | | | [address] [place] | | | | | | [place] [address] | | | | | | [phone] | | | +--------+ + + + [...] Weber, PT - 02/25/2014 10:43 [facility] [address] [place] [address] Physical Therapy Discharge Note Date: 02/25/2014 Patient [...] [place] | | | | | | [id number] | | | | | | | | +--------+---------+ + + + | 11/24/ | Office | Cardiology | [place], | | | 2019 | Visit | | SINDHU Erickson [address] | | | | | | [place], | | | | | | [place] [address] | | | | | | [phone] | | | | | | | | +--------+---------+ + + + documented as of this encounter Visit Diagnoses Not on filedocumented in this encounter"
--- OUTSIDE RECORDS SUMMARY | ~2019-01-15 | XMS | Encounter Summary ---
Demographics + + + | Address | [address] | | | [place] [address] | + + + | Home Phone [...] Providers + +------+ + | Care Resident Services Director Name | Role | Phone [...] [place]) (Primary Dx); | | | | [place], | | GARRY on CPAP; Tobacco | | | | [place] [address] | | abuse | | | | [phone] | | | +--------+---------+ + + + [...] done after today. She is moving to [place] in August. 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 Please send order to [place] [facility]. This is not a new order, [...] 02/24/2011 Tdap 01/22/2008 Dates: 05/11/12-08/08/12 Machine type: [employer] Company: [employer] CPAP Pressure: 13 cmH2O AHI: 6.1 events/hour [...] try switching her back to auto at [id number]. Th raven are not typically central apneas, [...] for 10 days. 2.Change CPAP pressure to [id number]. 3.Work on smoking cessation. 4.Bring download to next visit. She was advised to call if new pulmonary symptoms were to develop. Return to clinic in 4 weeks, or sooner with concerns. CC: Juan Cherry Portions of this report were transcribed using voice recognition software. Every effort wa s made to ensure accuracy; however, inadvertent computerized air brake tester errors may be pre sent. documented [...] [place] | | | | | | [address] | | | | | | | | +--------+---------+ + + + | 11/24/ | Office | Cardiology | [place], | | | 2020 | Visit | | SINDHU Erickson [address] | | | | | | [place], | | | | | | [place] [address] | | | | | | [phone] | | | | | | | [...]
--- OUTSIDE RECORDS SUMMARY | ~2019-01-15 | XMS | Encounter Summary ---
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 She has worked with a oil and gas field technician to correct her leaks. He has [...] week, sooner prn. Thirty minutes were spent cflr-xi-qaid, with the majority of time spent in counseling. Maxim Delgado PA-C cc: Juan Cherry DO Ced Hailee M - 2012 10:16 AM PST 03/06/12 [address] Depression Inventory-II Depression Score 43 Insomnia Severity Index Insomnia Severity Index 22 [place] Sleepiness Scale Sitting and reading 3 Watching [...] [place] | | | | | | [address] | | | | | | | | +--------+---------+ + + + | 11/24/ | Office | Cardiology | [place], | | | 2020 | Visit | | SINDHU Erickson [address] | | | | | | [place], | | | | | | [place] [address] | | | | | | [phone] | | | | | | | | +--------+---------+ + + + documented as of this encounter Visit Diagnoses + + | Diagnosis | + + | GARRY on CPAP - Primary Obstructive sleep apnea (adult) (pediatric) | + + | Organic insomnia, unspecified | + + documented in this encounter"
--- OUTSIDE RECORDS SUMMARY | ~2019-01-15 | XMS | Encounter Summary ---
Demographics + + + | Address | [address] | | | [place] [address] | + + + | Home Phone [...] Team Providers + +------+ + | Care Paving Contractor Name | Role | Phone | [...] Groin pain, | MD Jared | [address] | | | | | right Hx | [address] | [place], | | | | | of coronary | [address] | [place] [address] | | | | | angiogram | [place], | Phone: | | | | | Peritoneal | [place] [address] | [phone] | | | | | bleeding | Phone: | Fax: | | | | | Procedures | [phone] | [phone] | | | | | CT Abdomen | Fax: | | | | | | Pelvis wo | [phone] | | | | | | Contrast [...] Groin pain, | MD Jared | [address] | | | | | right Hx | [address] | [place], | | | | | of coronary | [address] | [place] [address] | | | | | angiogram | [place], | Phone: | | | | | Peritoneal | [place] [address] | [phone] | | | | | bleeding | Phone: | Fax: | | | | | Procedures | [phone] | [phone] | | | | | CT Abdomen | Fax: | | | | | | Pelvis wo | [phone] | | | | | | Contrast | | | +--------+--------+ + + + + Encounter Details +--------+ + + + + | Date | Type | Department | Care Team | Description | +--------+ + + + + | 03/08/ | Hospital | [facility] | Jared Mcdonough, | Groin pain, right; | | 2014 | Encounter | MED CTR [address] | [address] | Hx of coronary | | | | [place], | [place], | angiogram; | | | | [place] [address] | [place] [address] | Peritoneal bleeding | | | | [phone] | [phone] | | | | | | | [...] [place] | | | | | | [address] | | | | | | | | +--------+---------+ + + + | 11/24/ | Office | Cardiology | [place], | | | 2020 | Visit | | SINDHU Erickson [address] | | | | | | [place], | | | | | | [place] [address] | | | | | | [phone] | | | | | | | [...] + | MISCELLANEOUS LAB | | | [phone] | + +---------+ + + | MISCELANIOUS LAB | | | [phone] | + +---------+ + + documented in [...]
--- OUTSIDE RECORDS SUMMARY | ~2019-01-15 | XMS | Encounter Summary ---
Demographics + + + | Address | [address] | | | [place] [address] | + + + | Home Phone [...] Team Providers + +------+ + | Care Unattended Ground Sensor Specialist Name | Role | Phone | + +------+ + PCP | Unavailable | + +------+ + Encounter Details +--------+ + + + + | Date | Type | Department | Care Team | Description | +--------+ + + + + | 03/04/ | Hospital | [facility] | Jason Carvajal, | | | 2010 - | Encounter | MED CTR MED ONC | [address] | | | | | [address] [place] | [address] [place] | | | 03/06/ | | [place] [address] | [address] | | | 2010 | | [phone] | | | +--------+ + + + [...] [place] | | | | | | [address] | | | | | | | | +--------+---------+ + + + | 11/24/ | Office | Cardiology | [place], | | | 2019 | Visit | | SINDHU Erickson [address] | | | | | | [place], | | | | | | [place] [address] | | | | | | [phone] | | | | | | | | +--------+---------+ + + + documented as of this encounter Visit Diagnoses Not on filedocumented in this encounter"
--- OUTSIDE RECORDS SUMMARY | ~2019-01-15 | XMS | Encounter Summary ---
Demographics + + + | Address | [address] | | | [place] [address] | + + + | Home Phone [...] Team Providers + +------+ + | Care Dobby Loom Chain Pegger Name | Role | Phone | + [...] | | | | OP [address] | [place] | | | | | [place] | [address] | | | | | [address] | | | | | | [phone] | | | +--------+ + + + [...] Barkley, PT - [facility]24[facility]2016 [facility] [place] [address] [place] [address] Physical Therapy Discharge Note This discharge is [...] to discharge this patient [facility] The last progress note or the patients [...] [place] | | | | | | [address] | | | | | | | | +--------+---------+ + + + | 11/24/ | Office | Cardiology | [place], | | | 2019 | Visit | | SINDHU Erickson [address] | | | | | | [place] | | | | | | [place] [address] | | | | | | [phone] | | | | | | | | +--------+---------+ + + + documented as of this encounter Visit Diagnoses Not on filedocumented in this encounter"
--- OUTSIDE RECORDS SUMMARY | ~2019-01-15 | XMS | Encounter Summary ---
Demographics + + + | Address | [address] | | | [place] [address] | + + + | Home Phone [...] Team Providers + +------+ + | Care Budder Name | Role | Phone | + [...] Headache | Shashi Witt, | [address] | | | | | Pituitary | MD Need | [place], | | | | | tumor | updated | [place] | | | | | Procedures | address | [address] | | | | | CT Head w wo | | Phone: | | | | | Contrast | | [phone] | | | | | | | Fax: | | | | | | | [phone] | +--------+--------+ + + + + Reason for Visit +--------+ + | Reason | Comments | +--------+ + | Other | Schedule MRI | +--------+ + Encounter Details +--------+ + + + + | Date | Type | Department | Care Team | Description | +--------+ + + + + | 11/24/ | Telephone | [facility] | Aneta Rain | Other (Schedule MRI) | | 2013 | | NEUROLOGY ADRIANA | N, RN | | | | | [address], | | | | | | [address] [place] | | | | | | [place] [address] | | | | | | [phone] | | | +--------+ + + + [...] | | | | Jose [place] | | | | | | [address] | | | | | | | | +--------+---------+ + + + | 11/24/ | Office | Cardiology | [place], | | | 2019 | Visit | | SINDHU Erickson [address] | | | | | | [place], | | | | | | [place] [address] | | | | | | [phone] | | | | | | | [...] + | MISCELLANEOUS LAB | | | [phone] | + +---------+ + + | MISCELANIOUS LAB | | | [phone] | + +---------+ + + documented in this encounter Visit Diagnoses + + | Diagnosis | + + | Headache - Primary | + + | 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
--- OUTSIDE RECORDS SUMMARY | ~2019-01-15 | XMS | Encounter Summary ---
Demographics + + + | Address | [address] | | | [place] [address] | + + + | Home Phone [...] Providers + +------+ + | Care Back End Architect Name | Role | Phone | [...] + + | 11/11/ | Telephone | [facility] [place] | Shashi Segovia | Results | | 2013 | | PHYSIATRY [address] MD Need updated | | | | | [place], | address | | | | | [place] [address] | | | | | | [phone] | | | +--------+ + + + [...] [place] | | | | | | [address] | | | | | | | | +--------+---------+ + + + | 11/24/ | Office | Cardiology | [place], | | | 2019 | Visit | | SINDHU Erickson [address] | | | | | | [place], | | | | | | [place] [address] | | | | | | [phone] | | | | | | | | +--------+---------+ + + + documented as of this encounter Visit Diagnoses Not on filedocumented in this encounter"
--- OUTSIDE RECORDS SUMMARY | ~2019-01-15 | XMS | Encounter Summary ---
Demographics + + + | Address | [address] | | | [place] [address] | + + + | Home Phone [...] Providers + +------+ + | Care Java Programming Professor Name | Role | Phone | [...] Alonso MD | | | | | [place], | | | | | | [place] [address] | | | | | | [phone] | | | +--------+--------+ + + + [...] [place] | | | | | | [address] | | | | | | | | +--------+---------+ + + + | 11/24/ | Office | Cardiology | [place], | | | 2019 | Visit | | SINDHU Erickson [address] | | | | | | [place] | | | | | | [place] [address] | | | | | | [phone] | | | | | | | | +--------+---------+ + + + documented as of this encounter Visit Diagnoses Not on filedocumented in this encounter"
--- OUTSIDE RECORDS SUMMARY | ~2019-01-15 | XMS | Encounter Summary ---
Demographics + + + | Address | [address] | | | [place] [address] | + + + | Home Phone [...] Team Providers + +------+ + | Care Grainer Machine Name | Role | Phone | + +------+ + | Ozzy Delcid MD | PCP | | + +------+ + Encounter Details +--------+ + + + + | Date | Type | Department | Care Team | Description | +--------+ + + + + | 11/24/ | Abstract | [facility] | Ozzy eDlcid, | | | 2011 | | Anti-Coagulation | [address] | | | | | Clinic | [place] | | | | | | [address] | | | | | | | [...] [place] | | | | | | [address] | | | | | | | | +--------+---------+ + + + | 11/24/ | Office | Cardiology | [place], | | | 2019 | Visit | | SINDHU Erickson [address] | | | | | | [place], | | | | | | [place] [address] | | | | | | [phone] | | | | | | | | +--------+---------+ + + + documented as of this encounter Visit Diagnoses Not on filedocumented in this encounter"
--- OUTSIDE RECORDS SUMMARY | ~2019-01-15 | XMS | Encounter Summary ---
Demographics + + + | Address | [address] | | | [place] [address] | + + + | Home Phone [...] Providers + +------+ + | Care Water Systems Engineer Name | Role | Phone | [...] [address] | | | | | [place], | [place], | | | | | [place] [address] | [place] [address] | | | | | [phone] | [phone] | | | | | | | [...] | | | | | | [place] [address] | | | | | | [phone] | | | | | | | | +--------+---------+ + + + documented as of this encounter Visit Diagnoses Not on filedocumented in this encounter"
--- OUTSIDE RECORDS SUMMARY | ~2019-01-15 | XMS | Encounter Summary ---
Demographics + + + | Address | [address] | | | [place] [address] | + + + | Home Phone [...] Team Providers + +------+ + | Care Sifting Operator Name | Role | Phone | + +------+ + | Juan Cherry DO | PCP | | + +------+ + Encounter Details +--------+ + + + + | Date | Type | Department | Care Team | Description | +--------+ + + + + | 04/02/ | Hospital | [facility] | Dio Yun | | | 2017 | Encounter | MED CTR NUCLEAR | MD [address] | | | | | MEDICINE [address] | [place] [address] | | | | | [place], | [place], [place] | | | | | [place] [address] | [address] | | | | | [phone] | [phone] | | | | | | | [...] | 0 | 10/13/19 | | | [facility] | mouth as needed. | | | 16 | 7 | | -Cod [id number] MG | | | | | | [...] | | | | | | [place] [address] | | | | | | [phone] | | | | | | | [...]
--- OUTSIDE RECORDS SUMMARY | ~2019-01-15 | XMS | Encounter Summary ---
Demographics + + + | Address | [address] | | | [place] [address] | + + + | Home Phone [...] Team Providers + +------+ + | Care Office Supervisor Name | Role | Phone | [...] | RN | | | | | [place], | | | | | | [place] [address] | | | | | | [phone] | | | +--------+ + + + [...] [place] | | | | | | [address] | | | | | | | | +--------+---------+ + + + | 11/24/ | Office | Cardiology | [place], | | | 2020 | Visit | | SINDHU Erickson [address] | | | | | | [place], | | | | | | [place] [address] | | | | | | [phone] | | | | | | | | +--------+---------+ + + + documented as of this encounter Visit Diagnoses Not on filedocumented in this encounter"
--- OUTSIDE RECORDS SUMMARY | ~2019-01-15 | XMS | Encounter Summary ---
Demographics + + + | Address | [address] | | | [place] [address] | + + + | Home Phone [...] Providers + +------+ + | Care Patient Registrar Name | Role | Phone | [...] CARDIOLOGY [address] | MD [address] | Dx) | | | | [place], | [place], | | | | | [place] [address] | [place] [address] | | | | | [phone] | [phone] | | | | | | | [...] [place] | | | | | | [address] | | | | | | | | +--------+---------+ + + + | 11/24/ | Office | Cardiology | [place], | | | 2019 | Visit | | SINDHU Erickson [address] | | | | | | [place], | | | | | | [place] [address] | | | | | | [phone] | | | | | | | | +--------+---------+ + + + documented as of this encounter Visit Diagnoses + + | Diagnosis | + + | Tachycardia - Primary Tachycardia, unspecified | + + documented in this encounter
--- OUTSIDE RECORDS SUMMARY | ~2019-01-15 | XMS | Encounter Summary ---
Demographics + + + | Address | [address] | | | [place] [address] | + + + | Home Phone [...] Team Providers + +------+ + | Care Chicle Grinder Feeder Name | Role | Phone | [...] (Primary Dx); | | | | [place] [address] | | Central sleep apnea; | | | | [phone] | | Insomnia | +--------+---------+ + + [...] [place] | | | | | | [address] | | | | | | | | +--------+---------+ + + + | 11/24/ | Office | Cardiology | [place], | | | 2019 | Visit | | SINDHU Erickson [address] | | | | | | [place], | | | | | | [place] [address] | | | | | | [phone] | | | | | | | [...]
--- OUTSIDE RECORDS SUMMARY | ~2019-01-15 | XMS | Encounter Summary ---
Demographics + + + | Address | [address] | | | [place] [address] | + + + | Home Phone [...] Providers + +------+ + | Care Pulp Tester Name | Role | Phone | [...] | | | | | pulmonary | [address] | [address] | | | | | disease, | [place], | [place] | | | | | unspecified | [place] [address] | [place], [place] | | | | | COPD type | Phone: | [address] | | | | | (HCC) | [phone] | Phone: | | | | | Pulmonary | Fax: | [phone] | | | | | emphysema, | [phone] | Fax: | | | | | unspecified | | [phone] | | | | | emphysema | | | | | | | type ([facility]) | | | +--------+ + + + + + Encounter Details +--------+---------+ + + + | Date | Type | Department | Care Team | Description | +--------+---------+ + + + | 05/21/ | Office | [facility] | Sharonda Delmycaitie, | Chronic obstructive | | 2017 | Visit | MED CTR CARDIAC | [address] | pulmonary disease, | | | | REHABILITATION [address] | [place], | unspecified COPD | | | | [address] [place] | [place] [address] | type (HCC) (Primary | | | | [place] [address] | [phone] | Dx) | | | | [phone] | | | +--------+---------+ + + + [...] as of this encounter Progress Tricia Rahman, FILAMENT CUTTER - 05/21/2016 10:37 AM PDT [facility] [address] [place] [address] Cardiac Rehab Date: 05/21/2016 Patient Information Patient [...] | | | | [place] | | | | | | [address] | | | | | | | | +--------+---------+ + + + | 11/24/ | Office | Cardiology | [place], | | | 2019 | Visit | | GeorginaSINDHU reynoso [address] | | | | | | [place], | | | | | | [place] [address] | | | | | | [phone] | | | | | | | | +--------+---------+ + + + documented as of this encounter Visit Diagnoses + + | Diagnosis | + + | Chronic obstructive pulmonary disease, unspecified COPD type (HCC) - Primary | + + documented in this encounter"
--- OUTSIDE RECORDS SUMMARY | ~2019-01-15 | XMS | Encounter Summary ---
Demographics + + + | Address | [address] | | | [place] [address] | + + + | Home Phone [...] Providers + +------+ + | Care Customer Success Advocate Name | Role | Phone | [...] [address] | | | | | [place], | [place] | | | | | [place] [address] | [address] | | | | | [phone] | | | +--------+--------+ + + + [...] [place] | | | | | | [address] | | | | | | | | +--------+---------+ + + + | 11/24/ | Office | Cardiology | [place], | | | 2019 | Visit | | SINDHU Erickson [address] | | | | | | [place] | | | | | | [place] [address] | | | | | | [phone] | | | | | | | | +--------+---------+ + + + documented as of this encounter Visit Diagnoses Not on filedocumented in this encounter"
--- OUTSIDE RECORDS SUMMARY | ~2019-01-15 | XMS | Encounter Summary ---
Demographics + + + | Address | [address] | | | [place] [address] | + + + | Home Phone [...] Team Providers + +------+ + | Care Fitter/Welder Name | Role | Phone | + +------+ + PCP | Unavailable | + +------+ + Encounter Details +--------+ + + + + | Date | Type | Department | Care Team | Description | +--------+ + + + + | 09/23/ | Hospital | [facility] | Nestor Martinez, | | | 2010 | Encounter | MED CTR EMERGENCY | [address] | | | | | CENTER [address] | [place], [place] | | | | | [place] | [address] | | | | | [address] | | | | | | [phone] | | | +--------+ + + + [...] [place] | | | | | | [address] | | | | | | | | +--------+---------+ + + + | 11/24/ | Office | Cardiology | [place], | | | 2019 | Visit | | SINDHU Erickson [address] | | | | | | [place], | | | | | | [place] [address] | | | | | | [phone] | | | | | | | [...] | [address] | [place] | [phone] | | [facility] | | [address] | | | - LABORATORY | | | | + + + + + | [address] | [address] | [place] | | | [facility] | | [address] | | | - LABORATORY | | [...] [address] | [place] | [phone] | | [facility] | | [address] | | | - LABORATORY | | | | + + + + + | [address] | [address] [facility] | [place] | | | [facility] | | [address] | | | - LABORATORY | | | | + + + + + CT Abdomen Pelvis w Contrast (09/23/2010 11:33 AM PDT) + + | Specimen | + + | | + + + + + | Narrative | Performed At | + + + | [facility]. [facility] Diagnostic Imaging Department | [place] | | [address] [facility], [place] | [facility] | | ABDOMEN AND PELVIS CT WITH [...] Transcribed | | | Date/Time: 09/24/2010 13:01 Irradiated Fuel Handler: PEREZ | | | <Electronically Signed by Elías Cardoso MD> 09/24/10 1939 | | + + + + + | Procedure Note | + + | Reed, Rad Conversion - 04/02/2013 3:30 PM [facility] | | Diagnostic Imaging Department [address] [facility] | | ABDOMEN AND PELVIS CT [...] 09:10 | |Transcribed Date/Time: 09/24/2010 13:01 | |Irradiated Fuel Handler: | |<Electronically Signed by Elías Cardoso MD> 09/24/101938 | + + + +---------+ + + | Performing | Address | City/State/Zipcode | Phone Number | | Organization | | | | + +---------+ + + | [place] | | | | | [facility] | | | | + +---------+ + + documented in this encounter Visit Diagnoses Not on filedocumented in this encounter"
--- OUTSIDE RECORDS SUMMARY | ~2019-01-15 | XMS | Encounter Summary ---
Demographics + + + | Address | [address] | | | [place] [address] | + + + | Home Phone [...] Providers + +------+ + | Care Supervisor Solder Making Name | Role | Phone | + +------+ + PCP | Unavailable | + +------+ + Encounter Details +--------+ + + + + | Date | Type | Department | Care Team | Description | +--------+ + + + + | 10/11/ | Hospital | [facility] | Berna Glass MD | HEADACHE; | | 2010 | Encounter | CONVERSION DEP [address] | [address] | Diplopia; | | | | [address] | [place] [address] | Dizziness | | | | [place], [place] | [phone] | | | | | [address] | | | | | | [phone] | | | +--------+ + + + [...] [place] | | | | | | [address] | | | | | | | | +--------+---------+ + + + | 11/24/ | Office | Cardiology | [place], | | | 2019 | Visit | | SINDHU Erickson [address] | | | | | | [place], | | | | | | [place] [address] | | | | | | [phone] | | | | | | | [...] Performed At | + + + | [place] [id number] Ph: | | | Patient Name: JADYN SCHMITZ Date of : | | | 1965 Medical Record: [id number] Account: [id number] | | | Exam Date/Time: 10/11/2010 12:00 [...] The data set was also examined with [employer] 3D software | | | for evaluation [...] - 10/17/2018 5:21 PM PDT | | Located Within [facility] | | [facility] [address] | | | | | | Patient Name: JADYN SCHMITZ W | | Date of : 1965 | | Medical Record: [id number] | | Account: [id number] | | | | | | Exam [...] set was also examined with | | [employer] 3D software for evaluation of the cerebral [...]
--- OUTSIDE RECORDS SUMMARY | ~2019-01-15 | XMS | Encounter Summary ---
Demographics + + + | Address | [address] | | | [place] [address] | + + + | Home Phone [...] Providers + +------+ + | Care Well Tender Name | Role | Phone | [...] | with brief | [address] | [place] | | | | n | loss of | [address] | [place], | | | | | consciousnes | [place], | [place] [address] | | | | | s | [place] [address] | Phone: | | | | | Post-concuss | Phone: | [phone] | | | | | ion vertigo | [phone] | Fax: | | | | | [phone] | Fax: | [phone] | | | | | (ICD-10-CM) | [phone] | | | | | | - [...] + + | 06/18/ | Office | [facility] | Aaron Rodriguez, | Dizziness (Primary | | 2017 | Visit | MED CTR THERAPY PT | MD [address] | Dx); Impaired | | | | OP [address] | [place] | mobility and | | | | [place] | [phone] | activities of daily | | | | [address] | | living; Concussion | | | | [phone] | Lakeshia Cleary, PT | with brief (less | | | | | [address] | than one hour) loss | | | | | [place] | of consciousness; | | | | | [address] | Intractable acute | | | | [...] might be different from t he original. [facility] THERAPY PT OP [address] [place] [address] Physical Therapy Daily Treatment Note Date: 06/18/2016 [...] Rehab Precautions Office Visit from 05/01/2016 in [facility] CTR THERAPY PT OP Rehab Precautions [...] | | [facility] | | | | | | [id number] | | | | | | | | +--------+---------+ + + + | 11/24/ | Office | Cardiology | [place], | | | 2019 | Visit | | SINDHU Erickson [address] | | | | | | [place], | | | | | | [place] [address] | | | | | | [phone] | | | | | | | [...]
--- OUTSIDE RECORDS SUMMARY | ~2019-01-15 | XMS | Encounter Summary ---
Demographics + + + | Address | [address] | | | [place] [address] | + + + | Home Phone [...] + +------+ + | Care Information Systems Specialist Name | Role | Phone [...] + + | 01/13/ | Office | [facility] [place] | [place], | Central sleep apnea; | | 2011 | Visit | PULMONARY [address] | Loreta Alonso MD | Obstructive sleep | | | | [place], | | apnea; Insomnia | | | | [place] [address] | | | | | | [phone] | | | +--------+---------+ + + + [...] | | | | | [place] [address] | | | | | | [phone] | | | | | | | [...]
--- OUTSIDE RECORDS SUMMARY | ~2019-01-15 | XMS | Encounter Summary ---
Demographics + + + | Address | [address] | | | [place] [address] | + + + | Home Phone [...] Providers + +------+ + | Care Clinical Physician Assistant Name | Role | Phone | + +------+ + PCP | Unavailable | + +------+ + Encounter Details +--------+ + + + + | Date | Type | Department | Care Team | Description | +--------+ + + + + | 06/26/ | [facility] | [facility] | | | | 2009 - | Encounter | MED CTR OP REHAB | | | | | | [address] [place] | | | | 07/24/ | | [place] [address] | | | | 2009 | | [phone] | | | +--------+ + + + [...] [place] | | | | | | [address] | | | | | | | | +--------+---------+ + + + | 11/24/ | Office | Cardiology | [place], | | | 2020 | Visit | | SINDHU Erickson [address] | | | | | | [place], | | | | | | [place] [address] | | | | | | [phone] | | | | | | | | +--------+---------+ + + + documented as of this encounter Visit Diagnoses Not on filedocumented in this encounter"
--- OUTSIDE RECORDS SUMMARY | ~2019-01-15 | XMS | Encounter Summary ---
Demographics + + + | Address | [address] | | | [place] [address] | + + + | Home Phone [...] Team Providers + +------+ + | Care Drop Wire Operator Name | Role | Phone | [...] + + | 09/17/ | Telephone | [facility] | Kevin Sandoval, | Other (increased | | 2013 | | PULMONARY [address] | MD [address] | shortness of breath) | | | | [place], | [place], [place] | | | | | [place] [address] | [id number] | | | | | [phone] | | | +--------+ + + + [...] [place] | | | | | | [id number] | | | | | | | | +--------+---------+ + + + | 11/24/ | Office | Cardiology | [place], | | | 2019 | Visit | | [address] | | | | | | [place], | | | | | | [place] [address] | | | | | | [phone] | | | | | | | | +--------+---------+ + + + documented as of this encounter Visit Diagnoses Not on filedocumented in this encounter"
--- OUTSIDE RECORDS SUMMARY | ~2019-01-15 | XMS | Encounter Summary ---
Demographics + + + | Address | [address] | | | [place] [address] | + + + | Home Phone [...] Providers + +------+ + | Care Corporate Meeting Planner Name | Role | Phone | [...] | | | [place] | [facility] | | | | | [address] | [place] [address] | | | | | [phone] | [phone] | | | | | | | [...] [place] | | | | | | [address] | | | | | | | | +--------+---------+ + + + | 11/24/ | Office | Cardiology | Flores, | | | 2019 | Visit | | SINDHU Erickson [address] | | | | | | [place], | | | | | | [place] [address] | | | | | | [phone] | | | | | | | [...] 1.001 - 1.030 | | | | Jensen, | | | | | | UA, [...]
--- OUTSIDE RECORDS SUMMARY | ~2019-01-15 | XMS | Encounter Summary ---
Demographics + + + | Address | [address] | | | [place] [address] | + + + | Home Phone [...] Providers + +------+ + | Care Glass Production Machine Operator Name | Role | [...] [address] | | | | | [place], | [place] | | | | | [place] [address] | [address] | | | | | [phone] | | | +--------+--------+ + + + [...] | | | | | | [place] [address] | | | | | | [phone] | | | | | | | | +--------+---------+ + + + documented as of this encounter Visit Diagnoses Not on filedocumented in this encounter"
--- OUTSIDE RECORDS SUMMARY | ~2019-01-15 | XMS | Encounter Summary ---
Demographics + + + | Address | [address] | | | [place] [address] | + + + | Home Phone [...] + +------+ + | Care Health Services Information Specialist Name | Role | Phone [...] + | 03/06/ | Office | [facility] | Maxim Delgado PA | GARRY on CPAP (Primary | | 2012 | Visit | SLEEP DISORDER [address] | [address] | Dx); Organic | | | | [address] [place] | [place] | insomnia, | | | | [place] [address] | [address] | unspecified | | | | [phone] | | | +--------+---------+ + + + [...] 10/15/2011 AHI: 47.1 RDI: 53.4 Machine type: Groovideo with full face mask obtained from: [facility] pressure is: 8-12 cm 95%: [...] CPAP indefinitely. She has worked with a preparatory technician to correct her leaks. He has [...] week, sooner prn. Thirty minutes were spent qile-rs-rpuw, with the majority of time spent in counseling. Maxim Delgado PA-C cc: Juan Cherry DO Ced Hailee M - 2012 10:16 AM PST 03/06/12 [address] Depression Inventory-II Depression Score 43 Insomnia Severity Index Insomnia Severity Index 22 [place] Sleepiness Scale Sitting and reading 3 Watching [...] [place] | | | | | | [address] | | | | | | | | +--------+---------+ + + + | 11/24/ | Office | Cardiology | [place], | | | 2020 | Visit | | SINDHU Erickson [address] | | | | | | [place], | | | | | | [place] [address] | | | | | | [phone] | | | | | | | | +--------+---------+ + + + documented as of this encounter Visit Diagnoses + + | Diagnosis | + + | GARRY on CPAP - Primary Obstructive sleep apnea (adult) (pediatric) | + + | Organic insomnia, unspecified | + + documented in this encounter"
--- OUTSIDE RECORDS SUMMARY | ~2019-01-15 | XMS | Encounter Summary ---
Demographics + + + | Address | [address] | | | [place] [address] | + + + | Home Phone [...] Providers + +------+ + | Care Cementer Name | Role | Phone | [...] + + | 08/14/ | Emergency | [facility] | Sonny Cesar MD | Sinus tachycardia | | 2018 | | MED CTR EMERGENCY | [address] | (Primary Dx) | | | | CENTER [address] | [place] | | | | | [place] | [address] | | | | | [address] | | | | | | [phone] | | | +--------+ + + + [...] | | | | | | [place] [address] | | | | | | [phone] | | | | | | | [...] [address] | [place] | [phone] | | [facility] | | [address] | | | - LABORATORY | | [...] | | | | | | [employer] | | | | | [...] [address] | [place] | [phone] | | [facility] | | [address] | | | - LABORATORY | | [...] [address] | [place] | [phone] | | [facility] | | [address] | | | - LABORATORY | | [...] (L) | 7 - 18 mg/dL | [facility] | | | | | | [facility] | | | | | | MEDICAL | | | | | | CENTER - | | | | | | LABORATORY | | + + + + + + | Creatinine | 0.84 | 0.60 - 1.30 | [facility] | | | | | mg/dL | [facility] | | | | | | MEDICAL | | | | | | CENTER - | | | | | | LABORATORY | | + + + + + + | eGFR if not | >60Comment: GLOMERULAR | >=60 | [facility] | | | | FILTRATION | mL/min/1.73m2 | [facility] | | | [facility] | RATE,ESTIMATED | | MEDICAL | | | | mL/min/1.37g7Ytag than | | CENTER - | | [...] [address] | [place] | [phone] | | [facility] | | [address] | | | - LABORATORY | | [...] [address] | [place] | [phone] | | [facility] | | [address] | | | - LABORATORY | | [...] | | | | RAFA WELLS MD ([id number]) | | | | | | on [...] 3:01 | | | | | ONCE, [facility] 08/14/17 at 1500, For 1 | [...]
--- OUTSIDE RECORDS SUMMARY | ~2019-01-15 | XMS | Encounter Summary ---
Demographics + + + | Address | [address] | | | [place] [address] | + + + | Home Phone [...] Providers + +------+ + | Care Automobile Brakes Bonder Name | Role | Phone | + [...] + | 05/01/ | Telephone | [facility] | Lencho Goss MD | Other | | 2015 | | GASTROENTEROLOGY | [address], [place] | | | | | [address] | [address] [place], [place] | | | | | [address] [place], [place] | [address] | | | | | [address] | | | | | | [phone] | | | +--------+ + + + [...] [place] | | | | | | [address] | | | | | | | | +--------+---------+ + + + | 11/24/ | Office | Cardiology | [place], | | | 2019 | Visit | | SINDHU Erickson [address] | | | | | | [place], | | | | | | [place] [address] | | | | | | [phone] | | | | | | | | +--------+---------+ + + + documented as of this encounter Visit Diagnoses Not on filedocumented in this encounter"
--- OUTSIDE RECORDS SUMMARY | ~2019-01-15 | XMS | Encounter Summary ---
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 [address] | | | | | OP [address] | [place], [place] | | | | | [place], [place] | [address] | | | | | [address] | [phone] | | | | | [phone] | | | +--------+ + + + [...] of this encounter Progress Notes Janey Low, MANAGER TRUCK - 06/02/2013 9:39 AM [facility] OP [address] [place] [address] Cancellation/No Show Date: 06/02/2013 Patient Information Patient [...] [place] | | | | | | [id number] | | | | | | | | +--------+---------+ + + + | 11/24/ | Office | Cardiology | Flores | | | 2019 | Visit | | SINDHU Erickson [address] | | | | | | [place], | | | | | | [place] [address] | | | | | | [phone] | | | | | | | | +--------+---------+ + + + documented as of this encounter Visit Diagnoses Not on filedocumented in this encounter"
--- OUTSIDE RECORDS SUMMARY | ~2019-01-15 | XMS | Encounter Summary ---
Demographics + + + | Address | [address] | | | [place] [address] | + + + | Home Phone [...] + +------+ + | Care Machine Operator Slitter Technician Name | Role | Phone | [...] + + | 08/01/ | Telephone | [facility] [place] | [place], | Lab Order (due for | | 2015 | | CARDIOLOGY [address] | SINDHU Erickson [address] | fasting labs) | | | | [place], | [place], | | | | | [place] [address] | [place] [address] | | | | | [phone] | [phone] | | | | | | | [...] [place] | | | | | | [id number] | | | | | | | | +--------+---------+ + + + | 11/24/ | Office | Cardiology | [place], | | | 2019 | Visit | | SINDHU Erickson [address] | | | | | | [place], | | | | | | [place] [address] | | | | | | [phone] | | | | | | | [...]
--- OUTSIDE RECORDS SUMMARY | ~2019-01-15 | XMS | Encounter Summary ---
Demographics + + + | Address | [address] | | | [place] [address] | + + + | Home Phone [...] Team Providers + +------+ + | Care Behavioral Psychologist Name | Role | Phone | [...] emphysema type (HCC) | | | | [place], | [address] | (Primary Dx) | | | | [place] [address] | | | | | | [phone] | | | +--------+ + + + [...] [place] | | | | | | [address] | | | | | | | | +--------+---------+ + + + | 11/24/ | Office | Cardiology | Flores, | | | 2019 | Visit | | SINDHU Erickson [address] | | | | | | [place], | | | | | | [place] [address] | | | | | | [phone] | | | | | | | [...] | | | Rom[facility] Sandoval [facility]30[facility] | | |IMPRESSION: Spirometry is consistent [...] Kevin Sandoval MD 02/29/2016 6:30 | | |[facility] | | + + + documented in this encounter Visit Diagnoses + + | Diagnosis | + + | Pulmonary emphysema, unspecified emphysema type (HCC) - Primary | + + documented in this encounter"
--- OUTSIDE RECORDS SUMMARY | ~2019-01-15 | XMS | Encounter Summary ---
Demographics + + + | Address | [address] | | | [place] [address] | + + + | Home Phone [...] Team Providers + +------+ + | Care Meteorologist In Charge Name | Role | Phone | + [...] + + | 05/15/ | Office | [facility] | Offenstein, | GARRY (obstructive | | 2012 | Visit | PULMONARY [address] | Loreta Alonso MD | sleep apnea) | | | | [place], | | (Primary Dx); | | | | [place] [address] | | Central sleep apnea; | | | | [phone] | | Insomnia; COPD | | | [...] will send a corrected CPAP order to [facility]. 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 Clarification for order from [...] made to ensure accuracy; however, inadvertent computerized trauma counsellor errors may be pre sent. documented in [...] [place] | | | | | | [address] | | | | | | | | +--------+---------+ + + + | 11/24/ | Office | Cardiology | Flores, | | | 2019 | Visit | | SINDHU Erickson [address] | | | | | | [place] | | | | | | [place] [address] | | | | | | [phone] | | | | | | | [...]
--- OUTSIDE RECORDS SUMMARY | ~2019-01-15 | XMS | Encounter Summary ---
Demographics + + + | Address | [address] | | | [place] [address] | + + + | Home Phone [...] Team Providers + +------+ + | Care International Sales Manager Name | Role | Phone [...] + | 07/03/ | Office | [facility] | Maxim Delgado PA | GARRY on CPAP (Primary | | 2012 | Visit | SLEEP DISORDER [address] | [address] | Dx); Organic | | | | [address] [place] | [place] | insomnia, | | | | [place] [address] | [address] | unspecified | | | | [phone] | | | +--------+---------+ + + + [...] 10/15/2011 AHI: 47.1 RDI: 53.4 Machine type: [employer] with full face mask obtained from: [facility] pressure is: 13 cm 95%: 13.0 [...] error. I had her work with a lead slot technician to ensure that she was fitting [...] month, sooner prn. Fifteen minutes were spent gwxs-bt-emdg, wit h the majority of time spent [...] [place] | | | | | | [address] | | | | | | | | +--------+---------+ + + + | 11/24/ | Office | Cardiology | Flores, | | | 2019 | Visit | | SINDHU Erickson [address] | | | | | | [place], | | | | | | [place] [address] | | | | | | [phone] | | | | | | | | +--------+---------+ + + + documented as of this encounter Visit Diagnoses + + | Diagnosis | + + | GARRY on CPAP - Primary Obstructive sleep apnea (adult) (pediatric) | + + | Organic insomnia, unspecified | + + documented in this encounter"
--- OUTSIDE RECORDS SUMMARY | ~2019-01-15 | XMS | Encounter Summary ---
Demographics + + + | Address | [address] | | | [place] [address] | + + + | Home Phone [...] Team Providers + +------+ + | Care Duplicate Maker Name | Role | Phone | [...] + + | 12/15/ | Emergency | [facility] | Heriberto | Lower abdominal pain | | 2018 | | MED CTR EMERGENCY | Ozzy Kim MD [address] | (Primary Dx) | | | | [place] [address] | [address] [facility] | | | | | [place] | [place] [address] | | | | | [address] | [phone] | | | | | [phone] | | | +--------+ + + + [...] 12/15/2017Home and rest Drink plenty of fluids [place] for pain control Return here or see [...] | | | | | ([facility]) | | | | | | [...] | | | | | ([facility]) | | | | | | [...] [place] | | | | | | [address] | | | | | | | | +--------+---------+ + + + | 11/24/ | Office | Cardiology | Flores | | | 2020 | Visit | | SINDHU Erickson [address] | | | | | | [place], | | | | | | [place] [address] | | | | | | [phone] | | | | | | | [...] W?MRN: | | | | | | [id number] | | | [id number] | | | his | | | [...] | | | rics | | | [place] | | | d | | | [...] | | | rics | | | [place] | | | d 6 0 | [...] | | | FILTRATION | mL/min/1.73m2 | [facility] | | | [place] | RATE,ESTIMATED | | MEDICAL | | | | mL/min/1.76m7Rffn than | | CENTER - | | [...] [facility] | | | | | | [facility] | | | | | | MEDICAL [...] + | [address] | [address] | [place] | [phone] | | [facility] | | [address] | | | - LABORATORY | | [...] | nRBC | | K/uL | [facility]. [facility] | | | | [...] ST. | [address] | [place], [place] | [phone] | | [facility] | | [address] | | | - LABORATORY | | [...] [address] | [place] | [phone] | | [facility] | | [address] | | | - LABORATORY | | [...] 1.001 - 1.030 | | | | [place], | | | | | | [facility]A, [...]
--- OUTSIDE RECORDS SUMMARY | ~2019-01-15 | XMS | Encounter Summary ---
Demographics + + + | Address | [address] | | | [place] [address] | + + + | Home Phone [...] Team Providers + +------+ + | Care Railcar Switchman Name | Role | Phone | + +------+ + PCP | Unavailable | + +------+ + Encounter Details +--------+ + + + + | Date | Type | Department | Care Team | Description | +--------+ + + + + | 08/25/ | [facility] | [facility] | | | | 2009 | Encounter | MED CTR XRAY [address] | | | | | | [place] | | | | | | [place] [address] | | | | | | [phone] | | | +--------+ + + + [...] [place] | | | | | | [address] | | | | | | | | +--------+---------+ + + + | 11/24/ | Office | Cardiology | Flores, | | | 2020 | Visit | | SINDHU Erickson [address] | | | | | | [place], | | | | | | [place] [address] | | | | | | [phone] | | | | | | | | +--------+---------+ + + + documented as of this encounter Visit Diagnoses Not on filedocumented in this encounter"
--- OUTSIDE RECORDS SUMMARY | ~2019-01-15 | XMS | Encounter Summary ---
Demographics + + + | Address | [address] | | | [place] [address] | + + + | Home Phone [...] Providers + +------+ + | Care Animal Husbandman Name | Role | Phone | + +------+ + PCP | Unavailable | + +------+ + Encounter Details +--------+ + + + + | Date | Type | Department | Care Team | Description | +--------+ + + + + | 11/01/ | [facility] | [facility] | | | | 2008 | Encounter | MED CTR XRAY [address] | | | | | | [place] | | | | | | [place] [address] | | | | | | [phone] | | | +--------+ + + + [...] [place] | | | | | | [address] | | | | | | | | +--------+---------+ + + + | 11/24/ | Office | Cardiology | [place], | | | 2020 | Visit | | SINDHU Erickson [address] | | | | | | [place], | | | | | | [place] [address] | | | | | | [phone] | | | | | | | | +--------+---------+ + + + documented as of this encounter Visit Diagnoses Not on filedocumented in this encounter"
--- OUTSIDE RECORDS SUMMARY | ~2019-01-15 | XMS | Encounter Summary ---
Demographics + + + | Address | [address] | | | [place] [address] | + + + | Home Phone [...] Team Providers + +------+ + | Care Political Anthropologist Name | Role | Phone | + [...] | | | | Rehabilitatio | | [place] [address] | | | | n | | [address] | [place], | | | | | | [place], | [place] [address] | | | | | | [place] | Phone: | | | | | | [address] | [phone] | | | | | | Phone: | Fax: | | | | | | [phone] | [phone] | | | | | | Fax: | | | | | | | [phone] | | +--------+--------+ + + + + Encounter Details +--------+---------+ + + + | Date | Type | Department | Care Team | Description | +--------+---------+ + + + | 03/28/ | Office | [facility] [place] | Aaron Santoyo, | Concussion with | | 2016 | Visit | PHYSIATRY [address] | [address] | brief loss of | | | | [place], | [place], [place] | consciousness | | | | [place] [address] | [address] | (Primary Dx); | | | | [phone] | | Post-concussion | | | | [...] MD - 03/28/2016 11:41 AM PST [facility] PHYSIATRY [address] [place] [address] OFFICE NOTE AARON SANTOYO JR, MD Patient: JADYN SCHMITZ Admitting: MR #: [id number] LOC: PT TYPE: Adm Date: 03/28/2016 : [...] attacks. CURRENT MEDICATIONS: Albuterol inhaler. DuoNeb nebulized. Nsnvbutxaq-Pbblfio-vbhpxkxg-codeine as needed for headache. Advair inhaler. Gabapentin 800 mg 3 times per day. Cavendish 5/325 one tablet every 6 hours as [...] of consciousness 03/15/2016 as a result of wood experimental mechanic al fall, ICD-10 S06.0X9A. 2. Postconcussion [...] Transcribed on 03/28/2016 12:22:07 by drew job# [id number] Confirmation #: [id number] cc: YONG CHERRY DO [facility], Aaron Kim MD - 03/28/2016 11:21 AM PSTThis office note has been dictated. Report Confirmation# [id number] signed by Aaron Satnoyo MD at 03/28/2016 11:42 AM PSTdocumented in [...] [place] | | | | | | [address] | | | | | | | | +--------+---------+ + + + | 11/24/ | Office | Cardiology | [place], | | | 2019 | Visit | | SINDHU Erickson [address] | | | | | | [place], | | | | | | [place] [address] | | | | | | [phone] | | | | | | | [...]
--- OUTSIDE RECORDS SUMMARY | ~2019-01-15 | XMS | Encounter Summary ---
Demographics + + + | Address | [address] | | | [place] [address] | + + + | Home Phone [...] Team Providers + +------+ + | Care Iron Installer Name | Role | Phone | + +------+ + PCP | Unavailable | + +------+ + Encounter Details +--------+ + + + + | Date | Type | Department | Care Team | Description | +--------+ + + + + | 08/25/ | [facility] | [facility] | | | | 2009 | Encounter | MED CTR XRAY [address] | | | | | | [place] | | | | | | [place] [address] | | | | | | [phone] | | | +--------+ + + + [...] [place] | | | | | | [address] | | | | | | | | +--------+---------+ + + + | 11/24/ | Office | Cardiology | [place], | | | 2020 | Visit | | SINDHU Erickson [address] | | | | | | [place], | | | | | | [place] [address] | | | | | | [phone] | | | | | | | | +--------+---------+ + + + documented as of this encounter Visit Diagnoses Not on filedocumented in this encounter"
--- OUTSIDE RECORDS SUMMARY | ~2019-01-15 | XMS | Encounter Summary ---
Demographics + + + | Address | [address] | | | [place] [address] | + + + | Home Phone [...] Providers + +------+ + | Care Industrial Gas Fitter Name | Role | Phone | [...] NEPHROLOGY [address] | MD [address] | Dx) | | | | [address] | [address] [place] | | | | | [place], [place] | [place] [address] | | | | | [address] | [phone] | | | | | [phone] | | | +--------+ + + + [...] possible bacterial bronchitis till pt sees her demo event specialist. Pt was agreeable with plan. documented [...] [place] | | | | | | [address] | | | | | | | | +--------+---------+ + + + | 11/24/ | Office | Cardiology | [place], | | | 2019 | Visit | | SINDHU Erickson [address] | | | | | | [place], | | | | | | [place] [address] | | | | | | [phone] | | | | | | | | +--------+---------+ + + + documented as of this encounter Visit Diagnoses + + | Diagnosis | + + | Bronchitis - Primary Bronchitis, not specified as acute or chronic | + + documented in this encounter"
--- OUTSIDE RECORDS SUMMARY | ~2019-01-15 | XMS | Encounter Summary ---
Demographics + + + | Address | [address] | | | [place] [address] | + + + | Home Phone [...] Providers + +------+ + | Care Gas Roller Operator Name | Role | Phone | [...] + + | 10/18/ | Telephone | [facility] | Kevin Sandoval, | Other (increased | | 2013 | | PULMONARY [address] | MD [address] | shortness of breath) | | | | [place], | [place], [place] | | | | | [place] [address] | [address] | | | | | [phone] | | | +--------+ + + + [...] [place] | | | | | | [address] | | | | | | | | +--------+---------+ + + + | 11/24/ | Office | Cardiology | [place], | | | 2019 | Visit | | SINDHU Erickson [address] | | | | | | [place], | | | | | | [place] [address] | | | | | | [phone] | | | | | | | | +--------+---------+ + + + documented as of this encounter Visit Diagnoses Not on filedocumented in this encounter"
--- OUTSIDE RECORDS SUMMARY | ~2019-01-15 | XMS | Encounter Summary ---
Demographics + + + | Address | [address] | | | [place] [address] | + + + | Home Phone [...] + +------+ + | Care Highway Maintenance Technician Name | Role | Phone [...] | RN | | | | | [place], | | | | | | [place] [address] | | | | | | [phone] | | | +--------+ + + + [...] | | | | [place] | | | | | | [address] | | | | | | | | +--------+---------+ + + + | 11/24/ | Office | Cardiology | [place], | | | 2019 | Visit | | SINDHU Erickson [address] | | | | | | [place], | | | | | | [place] [address] | | | | | | [phone] | | | | | | | | +--------+---------+ + + + documented as of this encounter Visit Diagnoses Not on filedocumented in this encounter"
--- OUTSIDE RECORDS SUMMARY | ~2019-01-15 | XMS | Encounter Summary ---
Demographics + + + | Address | [address] | | | [place] [address] | + + + | Home Phone [...] Providers + +------+ + | Care Stem Frazer Name | Role | Phone | + [...] | | [place] | [facility] | | | | | [address] | [place] [address] | | | | | [phone] | [phone] | | | | | | | [...] [place] | | | | | | [address] | | | | | | | | +--------+---------+ + + + | 11/24/ | Office | Cardiology | [place], | | | 2019 | Visit | | SINDHU Erickson [address] | | | | | | [place], | | | | | | [place] [address] | | | | | | [phone] | | | | | | | | +--------+---------+ + + + documented as of this encounter Visit Diagnoses Not on filedocumented in this encounter"
--- OUTSIDE RECORDS SUMMARY | ~2019-01-15 | XMS | Encounter Summary ---
Demographics + + + | Address | [address] | | | [place] [address] | + + + | Home Phone [...] Providers + +------+ + | Care Photoengraving Photographer Name | Role | Phone | + +------+ + | Juan Cherry DO | PCP | | + +------+ + Encounter Details +--------+ + + + + | Date | Type | Department | Care Team | Description | +--------+ + + + + | 02/22/ | Hospital | [facility] | Ozzie Hayes | | | 2011 | Encounter | MED CTR EMERGENCY | MD Ran [address] | | | | | [place] [address] | [address] [facility] | | | | | [place], [place] | [place] [address] | | | | | [address] | [phone] | | | | | [phone] | | | +--------+ + + + [...] | | | | | | [place] [address] | | | | | | [phone] | | | | | | | [...] + | [facility] | [place] | | Department [address] [place] [address] | [facility] | | [ rep ct street[address]] [ rep ct [facility] [place] | | st zip] Signed | - IMAGING | | | | | Patient Name: THEOPANFILOJADYN W | | | Physician: CHEVY : 1965 Age: 47 Sex: F Unit | | | #: [id number] Exam Date: 02/23/12 Location: | | | ER Report #: [id number] Page: | | | %(RAD)RES..mtdd.print.filter("pg") of %(RAD) | | | RES..mtdd.print.filter("tpg") | | | | | | Accession Number: [id number] | | | ENHANCED CT ABDOMEN AND [...] Transcribed Date/Time: | | | 02/23/2012 12:15 Salon/Spa Manager: | | | <<Signature on File>> | | | Aditya Alonso | | | MD Claudio02/23/12 0984 <Electronically signed by Aditya Snyder MD> | | | Aditya Snyder MD 02/23/12 1200 Salon/Spa Manager: | | | [employer] Djewmeknvbcwa30/30/12 1215 Ozzie Hayes MD | | | | | + + + + + + + + | Performing | Address | City/State/Zipcode | Phone Number | | Organization | | | | + + + + + | [facility] | [address] | [place] | [phone] | | [facility] | | [address] | | | - IMAGING | | [...] - 1.030 | [facility] | | | [place] | | | [facility] | | [...] + | [facility] | [address] | [place] | [phone] | | [facility] | | [address] | | | - LABORATORY | | | | + + + + + | [facility] | [address] | [place] | | | [facility] | | [address] | | | - LABORATORY | | [...] + | [facility] | [address] | [place] | [phone] | | [facility] | | [address] | | | - LABORATORY | | | | + + + + + | [facility] | [address] | [place], [place] | | | [facility] | | [address] | | | - LABORATORY | | [...] + | [facility] | [address] | [place], [place] | [phone] | | [facility] | | [address] | | | - LABORATORY | | | | + + + + + | [facility] | [address] | [place], [place] | | | [facility] | | [address] | | | - LABORATORY | | [...] + | [facility] | [address] | [place] | [phone] | | [facility] | | [address] | | | - LABORATORY | | | | + + + + + | [facility] | [address] | [place], [place] | | | [facility] | | [address] | | | - LABORATORY | | [...] + | [facility] | [address] | [place], [place] | [phone] | | [facility] | | [address] | | | - LABORATORY | | | | + + + + + | [facility] | [address] | [place], [place] | | | [facility] | | [address] | | | - LABORATORY | | | | + + + + + documented in this encounter Visit Diagnoses Not on filedocumented in this encounter
--- OUTSIDE RECORDS SUMMARY | ~2019-01-15 | XMS | Encounter Summary ---
Demographics + + + | Address | [address] | | | [place] [address] | + + + | Home Phone [...] Team Providers + +------+ + | Care Crowd Controller Name | Role | Phone | + +------+ + | Ozzy Delcid MD | PCP | | + +------+ + Encounter Details +--------+ + + + + | Date | Type | Department | Care Team | Description | +--------+ + + + + | 10/08/ | Hospital | [facility] | [place], | | | 2011 | Encounter | MED CTR LABORATORY | Loreta Alonso MD | | | | | [address] [place] | | | | | | [place] | | | | | | [address] | | | | | | [phone] | | | +--------+ + + + [...] [place] | | | | | | [address] | | | | | | | | +--------+---------+ + + + | 11/24/ | Office | Cardiology | [place], | | | 2019 | Visit | | SINDHU Erickson [address] | | | | | | [place], | | | | | | [place] [address] | | | | | | [phone] | | | | | | | [...] performed on the Blake | uIU/mL | [facility] | | | | [employer] | | MEDICAL | | | [...] + | [facility] | [address] | [place], [place] | [phone] | | [facility] | | [address] | | | - LABORATORY | | | | + + + + + | [facility] | [address] | [place], [place] | | | [facility] | | [address] | | | - LABORATORY | | | | + + + + + documented in this encounter Visit Diagnoses Not on filedocumented in this encounter"
--- OUTSIDE RECORDS SUMMARY | ~2019-01-15 | XMS | Encounter Summary ---
Demographics + + + | Address | [address] | | | [place] [address] | + + + | Home Phone [...] Providers + +------+ + | Care Education Coordinator Name | Role | Phone | + +------+ + | Juan Cherry DO | PCP | | + +------+ + Encounter Details +--------+ + + + + | Date | Type | Department | Care Team | Description | +--------+ + + + + | 12/22/ | Hospital | [facility] | Yecenia Gallegos | | | 2012 - | Encounter | MED CTR MEDICAL | Yinka Aguirre MD [address] | | | | | [address] [place] | [facility] | | | 12/24/ | | [place] [address] | [place] [address] | | | 2012 | | [phone] | [phone] John, | | | | | | [...] Lucian Lopez MD - 12/24/2012 10:13 [place], [place] [address] Patient Name: JADYN SCHMITZ Provider: Lucian Lopez MD Unit #: [id number] Location: [facility] : 1965 ADMISSION DATE: 12/22/2012 DISCHARGE DATE: 12/24/2012 PRIMARY CARE PROVIDER: Juan Cherry DO. FABRICATOR SPECIAL ITEMS: Loreta London MD. DISCHARGING PHYSICIAN: Lucian Lopez MD. DISCHARGE DIAGNOSES 1. ACUTE EXACERBATION OF CHRONIC OBSTRUCTIVE PULMONARY DISEASE. IMPROVED. 2. DEPRESSION/FIBROMYALGIA. 3. HYPOTHYROIDISM. 4. OBSTRUCTIVE SLEEP APNEA. HISTORY OF PRESENT ILLNESS: Please refer to the history and physical examination note dicta kelley on 12/22. 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 She came in with shortness of [...] BY: Lucian Lopez MD Hospitalist JOB #: [id number] EXT JOB #:[id number] EDITED: 12/27/2012 07:16 <<Signature on File>> Lucian [...] | | | | | | [place] [address] | | | | | | [phone] | | | | | | | [...] + | [facility] | [address] | [place] | [phone] | | [facility] | | [address] | | | - LABORATORY | | | | + + + + + | [facility] | [address] | [place], [place] | | | [facility] | | [address] | | | - LABORATORY | | [...] [address] | [place] | [phone] | | [facility] | | [address] | | | - LABORATORY | | | | + + + + + | [facility] | [address] | [place], [place] | | | [facility] | | [address] | | | - LABORATORY | | [...] + | [facility] | [address] | [place] | [phone] | | [facility] | | [address] | | | - LABORATORY | | | | + + + + + | [facility] | [address] | [place] | | | [facility] | | [address] | | | - LABORATORY | | [...] + | [facility] | [address] | [place] | [phone] | | [facility] | | [address] | | | - LABORATORY | | | | + + + + + | [facility] | [address] | [place] | | | [facility] | | [address] | | | - LABORATORY | | | | + + + + + XR Chest AP Portable (12/22/2012 12:40 PM PDT) + + | Specimen | + + | | + + + + + | Narrative | Performed At | + + + | [facility] | [facility] | | Department [address] , [place] | [facility] | | [ rep ct street1+2] [ rep [facility] | | st zip] Signed | - IMAGING | | | | | Patient Name: JADYN SCHMITZ | | | Physician: JAZMYN : 1965 Age: 47 Sex: F Unit | | | #: [id number] Exam Date: 12/22/12 Location: | | | [address] [place] [address] Report #: [id number] Page: | | | %(RAD)RES..mtdd.print.filter("pg") of %(RAD) | | | RES..mtdd.print.filter("tpg") | | | | | | Accession Number: [id number] | | | CHEST PORTABLE CLINICAL HISTORY: [...] | | | Transcribed Date/Time: 12/22/2012 13:10 Botanical Technical Officer: | | | <<Signature on File>> | | | Kobe | | | MD Tor12/22/12 1422 <Electronically signed by Kobe Lentz MD> | | | Kobe Lentz MD 12/22/12 1240 Botanical Technical Officer: Webbrianx | | | Zpizwlkuujdju68/29/13 1310 Yecenia Gallegos MD | | | | | + + + + + + + + | Performing | Address | City/State/Zipcode | Phone Number | | Organization | | | | + + + + + | [facility] | [address] | [place] | [phone] | | [facility] | | [address] | | | - IMAGING | | [...] [address] | [place] | [phone] | | [facility] | | [address] | | | - LABORATORY | | | | + + + + + | [facility] | [address] | [place] | | | [facility] | | [address] | | | - LABORATORY | | [...] 11 | 7 - 18 mg/dL | [facility] | | | | | | [facility] | | | | | | MEDICAL | | | | | | CENTER - | | | | | | LABORATORY | | + + + + + + | Creatinine | 0.81 | 0.60 - 1.30 | [facility] | | | | | mg/dL | [facility] | | | | | | MEDICAL | | | | | | CENTER - | | | | | | LABORATORY | | + + + + + + | Estimated | >60Comment: For | >60 mL/min/A | [facility] | | | GFR | -Americans, | [...] + | [facility] | [address] | [place] | [phone] | | [facility] | | [address] | | | - LABORATORY | | | | + + + + + | [facility] | [address] | [place] | | | [facility] | | [address] | | | - LABORATORY | | | | + + + + + documented in this encounter Visit Diagnoses Not on filedocumented in this encounter
--- OUTSIDE RECORDS SUMMARY | ~2019-01-15 | XMS | Encounter Summary ---
Demographics + + + | Address | [address] | | | [place] [address] | + + + | Home Phone [...] Providers + +------+ + | Care Account Installer Name | Role | Phone | + +------+ + PCP | Unavailable | + +------+ + Encounter Details +--------+ + + + + | Date | Type | Department | Care Team | Description | +--------+ + + + + | 09/23/ | Hospital | [facility] | Nestor Martinez, | | | 2010 | Encounter | MED CTR EMERGENCY | [address] | | | | | CENTER [address] | [place], [place] | | | | | [place] | [address] | | | | | [address] | | | | | | [phone] | | | +--------+ + + + [...] [place] | | | | | | [address] | | | | | | | | +--------+---------+ + + + | 11/24/ | Office | Cardiology | [place], | | | 2019 | Visit | | SINDHU Erickson [address] | | | | | | [place], | | | | | | [place] [address] | | | | | | [phone] | | | | | | | [...] [address] | [place] | [phone] | | [facility] | | [address] | | | - LABORATORY | | | | + + + + + | [facility] | [address] | [place] | | | [facility] | | [address] | | | - LABORATORY | | [...] [address] | [place] | [phone] | | [facility] | | [address] | | | - LABORATORY | | | | + + + + + | [facility] | [address] [facility] | [place] | | | [facility] | | [address] | | | - LABORATORY | | | | + + + + + CT Abdomen Pelvis w Contrast (09/23/2010 11:33 AM PDT) + + | Specimen | + + | | + + + + + | Narrative | Performed At | + + + | [facility] Diagnostic [facility] Department | [place] | | [address] [facility], [place] | [facility] | | ABDOMEN AND PELVIS CT [...] Transcribed | | | Date/Time: 09/24/2010 13:01 Sample Case Porter: PEREZ | | | <Electronically Signed by Elías Cardoso MD> 09/24/10 1939 | | + + + + + | Procedure Note | + + | Reed, Rad Conversion - 04/02/2013 3:30 PM [facility] | | Diagnostic Imaging Department [address] [facility] | | ABDOMEN AND PELVIS CT WITH [...] 09:10 | |Transcribed Date/Time: 09/24/2010 13:01 | |Sample Case Porter: | |<Electronically Signed by Elías Cardoso MD> 09/24/101938 | + + + +---------+ + + | Performing | Address | City/State/Zipcode | Phone Number | | Organization | | | | + +---------+ + + | [place] | | | | | [facility] | | | | + +---------+ + + documented in this encounter Visit Diagnoses Not on filedocumented in this encounter"
--- OUTSIDE RECORDS SUMMARY | ~2019-01-15 | XMS | Encounter Summary ---
Demographics + + + | Address | [address] | | | [place] [address] | + + + | Home Phone [...] Team Providers + +------+ + | Care Relish Blender Name | Role | Phone | + [...] Reynolds RN | | | | | [place], | | | | | | [place] [address] | | | | | | [phone] | | | +--------+ + + + [...] [place] | | | | | | [id number] | | | | | | | | +--------+---------+ + + + | 11/24/ | Office | Cardiology | [place], | | | 2019 | Visit | | SINDHU Erickson [address] | | | | | | [place] | | | | | | [place] [address] | | | | | | [phone] | | | | | | | | +--------+---------+ + + + documented as of this encounter Visit Diagnoses Not on filedocumented in this encounter"
--- OUTSIDE RECORDS SUMMARY | ~2019-01-15 | XMS | Encounter Summary ---
Demographics + + + | Address | [address] | | | [place] [address] | + + + | Home Phone [...] Team Providers + +------+ + | Care Housekeeping Laundry Worker Name | Role | Phone | [...] + + | 03/10/ | Office | [facility] | [place], | Generalized | | 2019 | Visit | CARDIOLOGY [address] | SINDHU Erickson [address] | weakness; | | | | [place], | [place], | Palpitations; | | | | [place] [address] | [place] [address] | Paroxysmal atrial | | | | [phone] | [phone] | tachycardia (HCC); | | | | [...] Since that time, she was seen in [facility] emergency department due to a fall [...] kg (155 lb 13.8 oz) | B TX 29.45 kg/m Physical Exam Constitutional: She is [...] BNP 45 2018 I reviewed records from [facility] for hospitalization,including H& P, Discharge Summary and lab reports on 2018 which is summarized in the HPI. RESULTS- I reviewed reports from [facility]: No results found. ECHO 01/10/2018 - [...] and v entricular function done at the [facility]. LVEF 78%. C. Holter Monitor [...] She is in class II of the [place] [employer] functional clas s. There are [...] She was seen at the ED of [facility] 3 weeks ago and again [...] this chart may have been created with [employer] voice recognition software. Occasi onal wrong-word or [...] [place] | | | | | | [id number] | | | | | | | | +--------+---------+ + + + | 11/24/ | Office | Cardiology | [place], | | | 2019 | Visit | | SINDHU Erickson [address] | | | | | | [place] | | | | | | [place] [address] | | | | | | [phone] | | | | | | | [...] MD | | | | | | ([id number]) on 03/11/2018 | | | | | [...]
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
--- OUTSIDE RECORDS SUMMARY | ~2019-01-15 | XMS | Encounter Summary ---
Demographics + + + | Address | [address] | | | [place] [address] | + + + | Home Phone [...] Team Providers + +------+ + | Care Piece Work Checker Name | Role | Phone | [...] | | | | | | [place] [address] | | | | | | [phone] | | | +--------+ + + + [...] [place] | | | | | | [address] | | | | | | | | +--------+---------+ + + + | 11/24/ | Office | Cardiology | [place], | | | 2019 | Visit | | SINDHU Erickson [address] | | | | | | [place], | | | | | | [place] [address] | | | | | | [phone] | | | | | | | | +--------+---------+ + + + documented as of this encounter Visit Diagnoses Not on filedocumented in this encounter"
--- OUTSIDE RECORDS SUMMARY | ~2019-01-15 | XMS | Encounter Summary ---
Demographics + + + | Address | [address] | | | [place] [address] | + + + | Home Phone [...] Team Providers + +------+ + | Care Location Director Name | Role | Phone | + +------+ + | Juan Cherry DO | PCP | | + +------+ + Encounter Details +--------+ + + + + | Date | Type | Department | Care Team | Description | +--------+ + + + + | 11/08/ | Hospital | [facility] MEDICAL | Conversion | Asthma, moderate | | 2014 | Encounter | CENTER CARDIAC | Transaction, | persistent, | | | | PULMONARY REHAB | Provider Unknown | uncomplicated | | | | [address] [facility] | [phone] | | | | | [place], [place] | | | | | | [address] | | | | | | [phone] | | | +--------+ + + + [...] [place] | | | | | | [address] | | | | | | | | +--------+---------+ + + + | 11/24/ | Office | Cardiology | [place], | | | 2019 | Visit | | SINDHU Erickson [address] | | | | | | [place], | | | | | | [place] [address] | | | | | | [phone] | | | | | | | | +--------+---------+ + + + documented as of this encounter Visit Diagnoses + + | Diagnosis | + + | Asthma, moderate persistent, uncomplicated | + + documented in this encounter"
--- OUTSIDE RECORDS SUMMARY | ~2019-01-15 | XMS | Encounter Summary ---
Demographics + + + | Address | [address] | | | [place] [address] | + + + | Home Phone [...] Team Providers + +------+ + | Care Spanish Professor Name | Role | Phone | + +------+ + PCP | Unavailable | + +------+ + Encounter Details +--------+ + + + + | Date | Type | Department | Care Team | Description | +--------+ + + + + | 02/09/ | Hospital | [facility] | Alexi Guaman, | | | 2009 | Encounter | MED CTR EMERGENCY | [address] | | | | | [place] [address] [place] | [place] | | | | | [place] | [address] | | | | | [address] | | | | | | [phone] | | | +--------+ + + + [...] [place] | | | | | | [address] | | | | | | | | +--------+---------+ + + + | 11/24/ | Office | Cardiology | [place], | | | 2019 | Visit | | SINDHU Erickson [address] | | | | | | [place], | | | | | | [place] [address] | | | | | | [phone] | | | | | | | | +--------+---------+ + + + documented as of this encounter Visit Diagnoses Not on filedocumented in this encounter"
--- OUTSIDE RECORDS SUMMARY | ~2019-01-15 | XMS | Encounter Summary ---
Demographics + + + | Address | [address] | | | [place] [address] | + + + | Home Phone [...] Team Providers + +------+ + | Care Lidder Name | Role | Phone | + +------+ + | Juan Cherry DO | PCP | | + +------+ + Encounter Details +--------+ + + + + | Date | Type | Department | Care Team | Description | +--------+ + + + + | 07/15/ | Hospital | [facility] | Kevin Sandoval, | COPD (chronic | | 2014 | Encounter | [facility] | MD [address] | obstructive | | | | [address] | [place] | pulmonary disease); | | | | [place], | [address] | Hypoxemia | | | | [place] [address] | | | | | | [phone] | | | +--------+ + + + [...] | | | | | | [place] [address] | | | | | | [phone] | | | | | | | [...]
--- OUTSIDE RECORDS SUMMARY | ~2019-01-15 | XMS | Encounter Summary ---
Demographics + + + | Address | [address] | | | [place] [address] | + + + | Home Phone [...] Team Providers + +------+ + | Care Oceanographer Assistant Name | Role | Phone | [...] [address] | | | | | [place], | [place], | | | | | [place] [address] | [place] [address] | | | | | [phone] | [phone] | | | | | | | [...] | | | | | | [place] [address] | | | | | | [phone] | | | | | | | | +--------+---------+ + + + documented as of this encounter Visit Diagnoses Not on filedocumented in this encounter"
--- OUTSIDE RECORDS SUMMARY | ~2019-01-15 | XMS | Encounter Summary ---
Demographics + + + | Address | [address] | | | [place] [address] | + + + | Home Phone [...] Team Providers + +------+ + | Care Company Controller Name | Role | Phone | [...] + + | 09/07/ | Office | [facility] [place] | [place], | COPD exacerbation | | 2012 | Visit | PULMONARY [address] | Loreta Alonso MD | ([facility]) (Primary Dx); | | | | [place], | | Sleep apnea; | | | | [place] [address] | | Allergic rhinitis; | | | | [phone] | | Insomnia | +--------+---------+ + + [...] still having dizziness, let Dr. Cherry know. It Application Support Analyst at [facility]: Ruben Tucker MD documented in this encounter Progress Notes Loreta London MD - 09/07/2012 10:42 AM PDTFormatting of this note might be differe nt from the original. Sleep Follow Up MD Ayaka Rasheed Pulmonary and Critical Care [facility] [address] [place], [address] [facility] Rosario Malik is a 47 y.o. female [...] planning on her d ad driving to [place]. Past Medical History Past Medical History Diagnosis [...] 1 Years of Education: 13 Occupational History [employer] Social History Main Topics Smoking status: [...] AHI: 47.1 (complex sleep apnea) Machine type: [employer] auto CPAP Home Health Company: [employer] CPAP Pressure: 11-14 cmH2O Median Titrated Pressure: [...] to clinic not scheduled given move to [place], or sooner with concerns. CC: Juan Cherry Portions of this report were transcribed using voice recognition software. Every effort wa s made to ensure accuracy; however, inadvertent computerized paper maker errors may be pre sent. documented in [...] | | | | | | [place] [address] | | | | | | [phone] | | | | | | | [...]
--- OUTSIDE RECORDS SUMMARY | ~2019-01-15 | XMS | Encounter Summary ---
Demographics + + + | Address | [address] | | | [place] [address] | + + + | Home Phone [...] Team Providers + +------+ + | Care Tool Operator Name | Role | Phone | + +------+ + | Juan Cherry DO | PCP | | + +------+ + Encounter Details +--------+ + + + + | Date | Type | Department | Care Team | Description | +--------+ + + + + | 06/18/ | Hospital | [facility] | Kevin Sandoval, | COPD (chronic | | 2013 | Encounter | MED CTR XRAY [address] | MD [address] | obstructive | | | | [place] | [place] | pulmonary disease) | | | | [place] [address] | [address] | | | | | [phone] | | | +--------+ + + + [...] [place] | | | | | | [address] | | | | | | | | +--------+---------+ + + + | 11/24/ | Office | Cardiology | [place], | | | 2019 | Visit | | SINDHU Erickson [address] | | | | | | [place], | | | | | | [place] [address] | | | | | | [phone] | | | | | | | [...] + | MISCELLANEOUS LAB | | | [phone] | + +---------+ + + | MISCELANIOUS LAB | | | [phone] | + +---------+ + + documented in this encounter Visit Diagnoses + + | Diagnosis | + + | COPD (chronic obstructive pulmonary disease) Chronic airway obstruction, not | | elsewhere classified | + + documented in this encounter"
--- OUTSIDE RECORDS SUMMARY | ~2019-01-15 | XMS | Encounter Summary ---
Demographics + + + | Address | [address] | | | [place] [address] | + + + | Home Phone [...] Providers + +------+ + | Care Equipment Monitor Phototypesetting Name | Role | Phone | + [...] | with brief | [address] | [address] | | | | n | loss of | [address] | [place], | | | | | consciousnes | [place], | [place] [address] | | | | | s | [place] [address] | Phone: | | | | | Post-concuss | Phone: | [phone] | | | | | ion vertigo | [phone] | Fax: | | | | | [phone] | Fax: | [phone] | | | | | (ICD-10-CM) | [phone] | | | | | | - [...] + + | 05/01/ | Office | [facility] | Aaron Rodriguez, | Concussion with | | 2017 | Visit | MED CTR THERAPY PT | MD [address] | brief (less than one | | | | OP [address] | [place] | hour) loss of | | | | [place] | [phone] | consciousness | | | | [address] | | (Primary Dx); | | | | [phone] | Lakeshia Cleary, PT | Dizziness; Impaired | | | | | [address] | mobility and | | | | | [place] | activities of daily | | | | | [address] | living; Intractable | | | | [...] limited or restricted Treatment Plan/Interventions PT EvaluationPT Re-Fqyhjtxdrj61531 - Therapeutic Kkxrvlvp63635 - Neuromuscular Reeducation9 7116 - Gait Wzckxqhp48243 - Therapeutic Tgapracsom85832 - Manual Zxyrqnd30856 - Self Care/Ho me Management Electronically signed by: Lakeshia Barkley PT, 05/01/2016 12:44 Patient Name: Rosario Malik/: 1965/ Associated attestation - Aaron Rodriguez MD - 05/01/2016 12:52 PM PSTAaron Rodriguez MD (Jr.) Lakeshia Barkley, PT - 05/01/2016 9:53 AM PSTFormatting of this note might be different from t zachariah original. [facility] CTR THERAPY PT OP [address] [place] [address] Physical Therapy Initial Assessment Date: 05/01/2016 Patient [...] Pt lives in a 2 level home (ath[facility] hospital downstairs) no railing so is very careful. Social History Social History Marital Status: Single Spouse Name: N/A Number of Children: 1 Years of Education: 13 Occupational History [employer] Social History Main Topics Smoking status: [...] ([facility]) 10/28/2012 Overview: Managed by [facility] along with hypothyroidism Osteoarthritis Tachycardia Asthma Emphysema Migraine Sleep apnea uses BiPAP Oxygen dependent uses 2.5 liters most of the time Past Surgical History Procedure Laterality Date Hammer toe surgery right sided Hiatal hernia repair Hiatal hernia Kirk and bso Ovarian cysts, not cancer Colonoscopy 03/2010 Colonoscopy 1995 [facility] Knee surgery right Wrist surgery right Hysterectomy Other surgical history 02/28/2014 [facility] with Radial approach; Laterality: Left; Surgeon: Jared Mcdonough MD; Location: [facility] CARDIO VASCULAR LAB Tonsillectomy Age 6 Turbt N/A 11/22/2015 Procedure: Cystoscopy, Hydrodistention & Bladder Biopsy; Surgeon: Yinka Melendez; Location: [facility] MAIN OR Hernia repair 11/29/2015 [facility] Family History Problem Relation Age of [...] Precautions Office Visit from 05/01/2016 in [facility] CTR THERAPY PT OP Rehab [...] performing more ambitious activities, like sports, dancing, annual giving officer such a s sweeping or putting dishes [...] Certification To: 07/24/2016 Treatment Plan/Interventions PT EvaluationPT Re-Bvmeoktnha65844 - Therapeutic Knfgqxty75271 - Neuromuscular Reeducation9 7116 - Gait Jqtyqfsb56188 - Therapeutic Crgzbnjrrt38779 - Manual Ssanypj32186 - Self Care/Ho me Management Patient and/or [...] [place] | | | | | | [address] | | | | | | | | +--------+---------+ + + + | 11/24/ | Office | Cardiology | [place], | | | 2020 | Visit | | SINDHU Erickson [address] | | | | | | [place], | | | | | | [place] [address] | | | | | | [phone] | | | | | | | [...]
--- OUTSIDE RECORDS SUMMARY | ~2019-01-15 | XMS | Encounter Summary ---
Demographics + + + | Address | [address] | | | [place] [address] | + + + | Home Phone [...] Providers + +------+ + | Care Instrument Lens Grinder Apprentice Name | Role | Phone | [...] | | | | Rehabilitatio | | [address] | | | | n | | [address] | [place], | | | | | | [place], | [place] [address] | | | | | | [place] | Phone: | | | | | | [address] | [phone] | | | | | | Phone: | Fax: | | | | | | [phone] | [phone] | | | | | | Fax: | | | | | | | [phone] | | +--------+--------+ + + + + Encounter Details +--------+---------+ + + + | Date | Type | Department | Care Team | Description | +--------+---------+ + + + | 03/28/ | Office | [facility] [place] | Aaron Santoyo, | Concussion with | | 2016 | Visit | PHYSIATRY [address] | [address] | brief loss of | | | | [place] [place], | [place], [place] | consciousness | | | | [place] [address] | [address] | (Primary Dx); | | | | [phone] | | Post-concussion | | | | [...] MD - 03/28/2016 11:[address] [facility] PHYSIATRY [address] [place] [address] OFFICE NOTE AARON SANTOYO JR, MD Patient: JADYN SCHMITZ Admitting: MR #: [id number] LOC: PT TYPE: Adm Date: 03/28/2016 : [...] attacks. CURRENT MEDICATIONS: Albuterol inhaler. DuoNeb nebulized. Unvpflnlsd-Ontopjf-bscuqqyi-codeine as needed for headache. Advair inhaler. Gabapentin 800 mg 3 times per day. [place] 5/325 one tablet every 6 hours as [...] palpation. Seated str aight leg raise negative. Daivn's test negative. EXTREMITIES: Reveals no clubbing, no [...] of consciousness 03/15/2016 as a result of heater mechanic al fall, ICD-10 S06.0X9A. 2. Postconcussion [...] Transcribed on 03/28/2016 12:22:07 by drew job# [id number] Confirmation #: [id number] cc: YONG CHERRY DO [facility], Aaron Kim MD - 03/28/2016 11:21 AM PSTThis office note has been dictated. Report Confirmation# [id number] signed by Aaron Santoyo MD at 03/28/2016 [...] [place] | | | | | | [address] | | | | | | | | +--------+---------+ + + + | 11/24/ | Office | Cardiology | [place], | | | 2019 | Visit | | SINDHU Erickson [address] | | | | | | [place], | | | | | | [place] [address] | | | | | | [phone] | | | | | | | [...]
--- OUTSIDE RECORDS SUMMARY | ~2019-01-15 | XMS | Encounter Summary ---
Demographics + + + | Address | [address] | | | [place] [address] | + + + | Home Phone [...] Providers + +------+ + | Care Coil Inspector Name | Role | Phone | [...] + + | 09/09/ | Emergency | [facility] | Guru Cárdenas, | Epigastric pain | | 2017 | | MED CTR EMERGENCY | MD [address] | (Primary Dx) | | | | CENTER [address] | [facility] [place] | | | | | [place] | [place] [address] | | | | | [address] | [phone] | | | | | [phone] | | | +--------+ + + + [...] be sent through Care Everywhere.GASTRITIS (ADUL T) (CUBAN)documented in this encounter Medications at Time of [...] | | [facility]. | | | | | | | [...] | 0 | 10/13/19 | | | Jaahabysbj-VRIO-Elqe | mouth as needed. | | | 16 | 7 | | -Cod [id number] MG | | | | | | [...] [place] | | | | | | [address] | | | | | | | | +--------+---------+ + + + | 11/24/ | Office | Cardiology | [place], | | | 2019 | Visit | | SINDHU Erickson [address] | | | | | | [place], | | | | | | [place] [address] | | | | | | [phone] | | | | | | | [...] W?MRN: | | | | | | [id number] | | | [id number] | | | his | | | [...] ST. | [address] | [place] | [phone] | | [facility] | | [address] | | | - LABORATORY | | [...] mL/min/1.73m2 | [facility] | | | LUXEMBOURGER | RATE,ESTIMATED | | MEDICAL | | | | mL/min/1.94f5Mxlz than | | CENTER - | | [...] | | | | | | [facility] | | | | | | MEDICAL [...] Ratio | appended report. These | | [facility] | | | | results have [...] [address] | [place] | [phone] | | [facility] | | [address] | | | - LABORATORY | | [...] | [address] | [place] | [phone] | | [facility] | | [address] | | | - LABORATORY | | [...] - 1.030 | [facility] | | | [place] | | | [facility] | | [...] [address] | [place] | [phone] | | [facility] | | [address] | | | - LABORATORY | | [...] [address] | [place] | [phone] | | [facility] | | [address] | | | - LABORATORY | | [...] ST. | [address] | [place], [place] | [phone] | | [facility] | | [address] | | | - LABORATORY | | [...] [address] | [place] | [phone] | | [facility] | | [address] | | | - LABORATORY | | [...] [address] | [place] | [phone] | | [facility] | | [address] | | | - LABORATORY | | [...] ST. | [address] | [place], [place] | [phone] | | [facility] | | [address] | | | - LABORATORY | | [...]
--- OUTSIDE RECORDS SUMMARY | ~2019-01-15 | XMS | Encounter Summary ---
Demographics + + + | Address | [address] | | | [place] [address] | + + + | Home Phone [...] Providers + +------+ + | Care Reading Tutor Name | Role | Phone | [...] + | 05/01/ | Telephone | [facility] | Lencho Goss MD | Other | | 2015 | | GASTROENTEROLOGY | [address], [place] | | | | | [address] | [address] [place], [place] | | | | | [address] [place], [place] | [address] | | | | | [address] | | | | | | [phone] | | | +--------+ + + + [...] [place] | | | | | | [address] | | | | | | | | +--------+---------+ + + + | 11/24/ | Office | Cardiology | [place], | | | 2019 | Visit | | SINDHU Erickson [address] | | | | | | [place], | | | | | | [place] [address] | | | | | | [phone] | | | | | | | | +--------+---------+ + + + documented as of this encounter Visit Diagnoses Not on filedocumented in this encounter"
--- OUTSIDE RECORDS SUMMARY | ~2019-01-15 | XMS | Encounter Summary ---
Demographics + + + | Address | [address] | | | [place] [address] | + + + | Home Phone [...] Providers + +------+ + | Care Head Baker Name | Role | Phone | + +------+ + PCP | Unavailable | + +------+ + Encounter Details +--------+ + + + + | Date | Type | Department | Care Team | Description | +--------+ + + + + | 04/05/ | [facility] | [facility] | | | | 2010 | Encounter | MED CTR XRAY [address] | | | | | | [place] | | | | | | [place] [address] | | | | | | [phone] | | | +--------+ + + + [...] [place] | | | | | | [address] | | | | | | | | +--------+---------+ + + + | 11/24/ | Office | Cardiology | [place], | | | 2019 | Visit | | SINDHU Erickson [address] | | | | | | [place], | | | | | | [place] [address] | | | | | | [phone] | | | | | | | | +--------+---------+ + + + documented as of this encounter Visit Diagnoses Not on filedocumented in this encounter"
--- OUTSIDE RECORDS SUMMARY | ~2019-01-15 | XMS | Encounter Summary ---
Demographics + + + | Address | [address] | | | [place] [address] | + + + | Home Phone [...] Providers + +------+ + | Care Family Medicine Chair Name | Role | Phone | + +------+ + PCP | Unavailable | + +------+ + Encounter Details +--------+ + + + + | Date | Type | Department | Care Team | Description | +--------+ + + + + | 10/27/ | [facility] | [facility] | | | | 2008 - | Encounter | MED CTR OP REHAB | | | | | | [address] | | | | 11/23/ | | [place] [address] | | | | 2008 | | [phone] | | | +--------+ + + + [...] [place] | | | | | | [address] | | | | | | | | +--------+---------+ + + + | 11/24/ | Office | Cardiology | [place], | | | 2020 | Visit | | SINDHU Erickson [address] | | | | | | [place], | | | | | | [place] [address] | | | | | | [phone] | | | | | | | | +--------+---------+ + + + documented as of this encounter Visit Diagnoses Not on filedocumented in this encounter"
--- OUTSIDE RECORDS SUMMARY | ~2019-01-15 | XMS | Encounter Summary ---
Demographics + + + | Address | [address] | | | [place] [address] | + + + | Home Phone [...] Team Providers + +------+ + | Care Caustic Operator Name | Role | Phone | + +------+ + PCP | Unavailable | + +------+ + Encounter Details +--------+ + + + + | Date | Type | Department | Care Team | Description | +--------+ + + + + | 11/01/ | [facility] | [facility] | | | | 2008 | Encounter | MED CTR XRAY [address] | | | | | | [place] | | | | | | [place] [address] | | | | | | [phone] | | | +--------+ + + + [...] [place] | | | | | | [address] | | | | | | | | +--------+---------+ + + + | 11/24/ | Office | Cardiology | [place], | | | 2020 | Visit | | SINDHU Erickson [address] | | | | | | [place], | | | | | | [place] [address] | | | | | | [phone] | | | | | | | | +--------+---------+ + + + documented as of this encounter Visit Diagnoses Not on filedocumented in this encounter"
--- OUTSIDE RECORDS SUMMARY | ~2019-01-15 | XMS | Encounter Summary ---
Demographics + + + | Address | [address] | | | [place] [address] | + + + | Home Phone [...] Providers + +------+ + | Care Concrete Floor Installer Name | Role | Phone | + +------+ + PCP | Unavailable | + +------+ + Encounter Details +--------+ + + + + | Date | Type | Department | Care Team | Description | +--------+ + + + + | 05/11/ | Hospital | [facility] | Berna Vizcaino MD | Special screening | | 2010 | Encounter | CONVERSION DEP [address] | [address] | for osteoporosis | | | | [address] | [place] [address] | | | | | [place], [place] | [phone] | | | | | [address] | | | | | | [phone] | | | +--------+ + + + [...] | | | | | | [place] [address] | | | | | | [phone] | | | | | | | [...] | + + + | [facility] [address] Ph: | | | Patient Name: JADYN SCHMITZ Date of : | | | 1965 Medical Record: [id number] Account: [id number] | | | Exam Date/Time: 05/11/2010 11:30 [...] was scanned in the anterior projection and tajoli-wf-uzyzzdzn | | | values were drawn about the vertebral segments of L1 through L4 at | | | the levels where accurate assessment was possible. A bone mineral | | | analysis was also performed on the left hip with nofrji-bo-yoqraycu | | | areas including the femoral [...] 10/17/2018 5:21 PM PDT | | [facility] | | [facility] [address] | | | | | | Patient Name: JADYN SCHMITZ W | | Date of : 1965 | | Medical Record: [id number] | | Account: [id number] | | | | | | Exam [...] | scanned in the anterior projection and jovrsn-dz-bohkpxjm values were drawn | | about the vertebral segments of L1 through L4 at the levels where accurate | | assessment was possible. A bone mineral analysis was also performed on the | | left hip with wzdyxv-ci-owdaqqbi areas including the femoral neck measured. | [...]
--- OUTSIDE RECORDS SUMMARY | ~2019-01-15 | XMS | Encounter Summary ---
Demographics + + + | Address | [address] | | | [place] [address] | + + + | Home Phone [...] Providers + +------+ + | Care Car Rental Clerk Name | Role | Phone | + +------+ + | Ozzy Delcid MD | PCP | | + +------+ + Encounter Details +--------+ + + + + | Date | Type | Department | Care Team | Description | +--------+ + + + + | 10/08/ | Hospital | [facility] | [place], | | | 2011 | Encounter | MED CTR LABORATORY | Loreta Alonso MD | | | | | [address] | | | | | | [place] | | | | | | [address] | | | | | | [phone] | | | +--------+ + + + [...] [place] | | | | | | [address] | | | | | | | | +--------+---------+ + + + | 11/24/ | Office | Cardiology | [place], | | | 2019 | Visit | | SINDHU Erickson [address] | | | | | | [place], | | | | | | [place] [address] | | | | | | [phone] | | | | | | | [...] performed on the Blake | uIU/mL | [facility] | | | | [place] [facility] | | MEDICAL | | | [...] + | [facility] | [address] | [place], [place] | [phone] | | [facility] | | [address] | | | - LABORATORY | | | | + + + + + | [facility] | [address] | [place], [place] | | | [facility] | | [address] | | | - LABORATORY | | | | + + + + + documented in this encounter Visit Diagnoses Not on filedocumented in this encounter"
--- OUTSIDE RECORDS SUMMARY | ~2019-01-15 | XMS | Encounter Summary ---
Demographics + + + | Address | [address] | | | [place] [address] | + + + | Home Phone [...] Team Providers + +------+ + | Care Desk Officer Name | Role | Phone | + +------+ + | Juan Cherry DO | PCP | | + +------+ + Encounter Details +--------+ + + + + | Date | Type | Department | Care Team | Description | +--------+ + + + + | 04/12/ | Hospital | [facility] | [place], | COPD exacerbation | | 2013 | Encounter | MED CTR GENERIC OP | Loreta Alonso MD | ([facility]) | | | | CONV DEPT [address] | | | | | | [place], | | | | | | [place] [address] | | | | | | [phone] | | | +--------+ + + + [...] [facility]. | | | | | | | [...] days. | | | | | | ([facility] [...] [place] | | | | | | [id number] | | | | | | | | +--------+---------+ + + + | 11/24/ | Office | Cardiology | [place] | | | 2019 | Visit | | SINDHU Erickson [address] | | | | | | [place], | | | | | | [place] [address] | | | | | | [phone] | | | | | | | [...] | + + + + + | [facility] | [address] | [place] | [phone] | | [facility] | | [address] | | | - LABORATORY | | | | + + + + + | [facility] | [address] | [place], [place] | | | [facility] | | [address] | | | - LABORATORY | | [...] + | [facility] | [address] | [place] | [phone] | | [facility] | | [address] | | | - LABORATORY | | | | + + + + + | [facility] | [address] | [place], [place] | | | [facility] | | [address] | | | - LABORATORY | | | | + + + + + documented in this encounter Visit Diagnoses + + | Diagnosis | + + | COPD exacerbation (HCC) Obstructive chronic bronchitis with exacerbation | + + documented in this encounter"
--- OUTSIDE RECORDS SUMMARY | ~2019-01-15 | XMS | Encounter Summary ---
Demographics + + + | Address | [address] | | | [place] [address] | + + + | Home Phone [...] Providers + +------+ + | Care Processing Analyst Name | Role | Phone | [...] + | 09/04/ | Off-Site | [facility] | [place], | Paroxysmal atrial | | 2016 | Visit | CARDIOLOGY [address] | SINDHU Erickson [address] | tachycardia (HCC) | | | | [place], | [place], | (Primary Dx); Chest | | | | [place] [address] | [place] [address] | pain, unspecified | | | | [phone] | [phone] | type | | | | | [...] HOSPITAL. 1 each 0 Respiratory Therapy Supplies [facility] Change CPAP back to 11-14 cm H2O. All necessary suppl ies. No oxygen bleed in. Diagnosis Code(s)327.23. Length of Need: Lifetime. Please send orde r to [facility]. This is not [...] RESULTS reviewed during visit today primarily from [facility]: LIPID No results found for: CHOL, [...] She was seen at the ED of [facility] 3 weeks ago and again [...] in a class II of [employer] functional class. There is n [...] and ventricular function don e at the [facility]. LVEF 78%. C. Holter Monitor [...] this chart may have been created with [employer] voice recognition software. Occasi onal wrong-word or [...] | | | | | | [place] [address] | | | | | | [phone] | | | | | | | [...]
--- OUTSIDE RECORDS SUMMARY | ~2019-01-15 | XMS | Encounter Summary ---
Demographics + + + | Address | [address] | | | [place] [address] | + + + | Home Phone [...] Team Providers + +------+ + | Care Volunteer Services Manager Name | Role | Phone [...] 2013 | | OCCUPATIONAL HEALTH | [address] [facility] | ([facility]) | | | | [facility] [address] | [place] | | | | | [address] [address] [place] | [address] | | | | | [place] | | | | | | [address] | | | | | | [phone] | | | +--------+--------+ + + + [...] | | | | | | [place] [address] | | | | | | [phone] | | | | | | | | +--------+---------+ + + + documented as of this encounter Visit Diagnoses Not on filedocumented in this encounter"
--- OUTSIDE RECORDS SUMMARY | ~2019-01-15 | XMS | Encounter Summary ---
Demographics + + + | Address | [address] | | | [place] [address] | + + + | Home Phone [...] Organization | [facility] | | | and [...] Providers + +------+ + | Care System Support Developer Name | Role | Phone | [...] | Pulmonary | MD Mukul | [address] | | | | | nodule | [address] | [address], | | | | | Procedures | [address] | [place] [address] | | | | | CT Chest wo | [place] | Phone: | | | | | Contrast | [place] | [phone] | | | | | | [address] | Fax: | | | | | | Phone: | [phone] | | | | | | [phone] | | | | | | | Fax: | | | | | | | [phone] | | +--------+--------+ + + + + [...] | Pulmonary | MD Mukul | [address] | | | | | nodule | [address] | [address], | | | | | Procedures | [address] [address] | [place] [address] | | | | | CT Chest wo | [place] R E | Phone: | | | | | Contrast | [place], [place] | [phone] | | | | | | [address] | Fax: | | | | | | Phone: | [phone] | | | | | | [phone] | | | | | | | Fax: | | | | | | | [phone] | | +--------+--------+ + + + + [...] [place] [address] | | | | | [address], | Jose [address] [place], [place] | | | | | [place] [address] | [address] | | | | | [phone] | | | +--------+ + + + [...] | | | | | | [place] [address] | | | | | | [phone] | | | | | | | [...] + + | Performing | Address | City[facility] | Phone Number | | Organization | | | | + +---------+ + + | [facility] | | | | + +---------+ + + documented in this encounter Visit Diagnoses + + | Diagnosis | + + | Pulmonary nodule Solitary pulmonary nodule | + + documented in this encounter"
--- OUTSIDE RECORDS SUMMARY | ~2019-01-15 | XMS | Encounter Summary ---
Demographics + + + | Address | [address] | | | [place] [address] | + + + | Home Phone [...] Providers + +------+ + | Care Remelt Sugar Boiler Name | Role | Phone | + +------+ + | Juan Cherry DO | PCP | | + +------+ + Encounter Details +--------+ + + + + | Date | Type | Department | Care Team | Description | +--------+ + + + + | 09/04/ | Orders Only | [facility] [place] | Scammon, | Paroxysmal atrial | | 2016 | | CARDIOLOGY [address] | Georgina BUSINESS RESILIENCY MANAGER [address] | tachycardia (HCC) | | | | [place], | [place], | | | | | [place] [address] | [place] [address] | | | | | [phone] | [phone] | | | | | | | [...] [place] | | | | | | [address] | | | | | | | | +--------+---------+ + + + | 11/24/ | Office | Cardiology | [place], | | | 2019 | Visit | | SINDHU Erickson [address] | | | | | | [place], | | | | | | [place] [address] | | | | | | [phone] | | | | | | | | +--------+---------+ + + + documented as of this encounter Visit Diagnoses + + | Diagnosis | + + | Paroxysmal atrial tachycardia (HCC) Paroxysmal supraventricular tachycardia | + + documented in this encounter"
--- OUTSIDE RECORDS SUMMARY | ~2019-01-15 | XMS | Encounter Summary ---
Demographics + + + | Address | [address] | | | [place] [address] | + + + | Home Phone [...] Providers + +------+ + | Care Farm General Manager Name | Role | Phone | [...] on | MED CTR THERAPY PT | DISH STACKER [address] | | | | | OP [address] | [place], [place] | | | | | [place], [place] | [address] | | | | | [address] | [phone] | | | | | [phone] | | | +--------+ + + + [...] of this encounter Progress Notes Janey Low, DISH STACKER - 05/18/2013 9[facility]14 [facility] OP [address] [place] [address] Cancellation/No Show Date: 05/18/2013 Patient Information Patient [...] | | | | | | [place] [address] | | | | | | [phone] | | | | | | | | +--------+---------+ + + + documented as of this encounter Visit Diagnoses Not on filedocumented in this encounter"
--- OUTSIDE RECORDS SUMMARY | ~2019-01-15 | XMS | Encounter Summary ---
Demographics + + + | Address | [address] | | | [place] [address] | + + + | Home Phone [...] Team Providers + +------+ + | Care Manufacturer Name | Role | Phone | + [...] on | MED CTR THERAPY PT | ASSOCIATE EDITOR [address] | | | | | OP [address] | [place], [place] | | | | | [place], [place] | [address] | | | | | [address] | [phone] | | | | | [phone] | | | +--------+ + + + [...] of this encounter Progress Notes Janey Low, ASSOCIATE EDITOR - 05/18/2013 9:14 [facility] OP [address] [place] [address] Cancellation/No Show Date: 05/18/2013 Patient Information Patient [...] | | | | | | [place] [address] | | | | | | [phone] | | | | | | | | +--------+---------+ + + + documented as of this encounter Visit Diagnoses Not on filedocumented in this encounter"
--- OUTSIDE RECORDS SUMMARY | ~2019-01-15 | XMS | Encounter Summary ---
Demographics + + + | Address | [address] | | | [place] [address] | + + + | Home Phone [...] Team Providers + +------+ + | Care Capacitor Tester Name | Role | Phone | [...] | apnea (adult) | | | | [place], | | (pediatric) (Primary | | | | [place] [address] | | Dx) | | | | [phone] | | | +--------+ + + + [...] [place] | | | | | | [address] | | | | | | | | +--------+---------+ + + + | 11/24/ | Office | Cardiology | [place], | | | 2019 | Visit | | SINDHU Erickson [address] | | | | | | [place], | | | | | | [place] [address] | | | | | | [phone] | | | | | | | | +--------+---------+ + + + documented as of this encounter Visit Diagnoses + + | Diagnosis | + + | Obstructive sleep apnea (adult) (pediatric) - Primary | + + documented in this encounter"
--- OUTSIDE RECORDS SUMMARY | ~2019-01-15 | XMS | Encounter Summary ---
Demographics + + + | Address | [address] | | | [place] [address] | + + + | Home Phone [...] Providers + +------+ + | Care Edger Hand Name | Role | Phone | [...] | Concussion | Aaron Kim MD | Sales Store Checker [address] | | | Required | | with brief | [address] | [place] | | | | | loss of | [address] | [place], [place] | | | | | consciousnes | [place], | [address] | | | | | s Word | [place] [address] | Phone: | | | | | finding | Phone: | [phone] | | | | | difficulty | [phone] | Fax: | | | | | S06.0X9A | Fax: | [phone] | | | | | (ICD-10-CM) | [phone] | | | | | | - [...] + + | 06/06/ | Hospital | [facility] | Aaron Rodriguez, | Concussion with | | 2017 | Encounter | MED CTR SPEECH | MD [address] | brief (less than one | | | | THERAPY [address] | [place] | hour) loss of | | | | [place], | [address] | consciousness | | | | [place] [address] | | (Primary Dx) | | | | [phone] | Kathi Soto, | | | | [...] | | | | | | [facility]. | | | | | | | [...] | 0 | 10/13/19 | | | Dnyrzpbxya-IIZD-Jljf | mouth as needed. | | | 16 | 7 | | -Cod [id number] MG | | | | | | [...] Speech Pathologist - 06/06/2016 5:52 PM PDT [facility]ERAPY [address] [facility] [address] Speech Therapy Daily Treatment Note Date: 06/06/2016 Patient Information Patient Name: Rosario Malik Date of : 1965 Age: 51 y.o. Encounter Diagnoses Code Name Primary? S06.0X9A Concussion with brief (less than one hour) loss of consciousness Yes Date of Onset: 03/15/2016 Referring Provider: Aaron Rodriguez MD Rehab Precautions Office Visit from 05/01/2016 in [facility] THERAPY PT OP Rehab Precautions Precautions None Rehab Learning Style WSM INVESTOR RELATIONS COORDINATOR OP EVAL from 05/16/2016 in [facility] SPEECH THERAPY Office V isit from 05/01/2016 in [facility] THERAPY PT OP Learning Style Patient's [...] | | | | [address] [place] | | | | | | [address] | | | | | | | | +--------+---------+ + + + | 11/24/ | Office | Cardiology | [place], | | | 2020 | Visit | | SINDHU Erickson [address] | | | | | | [place], | | | | | | [place] [address] | | | | | | [phone] | | | | | | | [...]
--- OUTSIDE RECORDS SUMMARY | ~2019-01-15 | XMS | Encounter Summary ---
Demographics + + + | Address | [address] | | | [place] [address] | + + + | Home Phone [...] Providers + +------+ + | Care Radiology Practitioner Assistant Name | Role | Phone | [...] Insomnia; Need for | | | | [place], | | influenza | | | | [place] [address] | | vaccination | | | | [phone] | | | +--------+---------+ + + + [...] Maxim Delgado. Insomnia She continues to have water registrar awakenings. I think this is in part [...] before bedtime. Need for influenza vaccination - [place] FLU VACCINE =>3YO PRESERVATIVE FREE IM 30 minutes were spent with Ms. aMlik with greater than 50% spent in counseling [...] [place] | | | | | | [address] | | | | | | | | +--------+---------+ + + + | 11/24/ | Office | Cardiology | [place], | | | 2019 | Visit | | SINDHU Erickson [address] | | | | | | [place], | | | | | | [place] [address] | | | | | | [phone] | | | | | | | [...]
--- OUTSIDE RECORDS SUMMARY | ~2019-01-15 | XMS | Encounter Summary ---
Demographics + + + | Address | [address] | | | [place] [address] | + + + | Home Phone [...] Team Providers + +------+ + | Care Hardboard Grinder Name | Role | Phone | [...] | Concussion | Aaron Kim MD | Electroplater Automatic [address] | | | Required | | with brief | [address] | [place] | | | | | loss of | [address] | [place], [place] | | | | | consciousnes | [place], | [address] | | | | | [place] | [place] [address] | Phone: | | | | | finding | Phone: | [phone] | | | | | difficulty | [phone] | Fax: | | | | | S06.0X9A | Fax: | [phone] | | | | | (ICD-10-CM) | [phone] | | | | | | - [...] + + | 07/18/ | Hospital | [facility] | Aaron Rodriguez, | Canceled (Illness) | | 2017 | Encounter | MED CTR SPEECH | [address] | | | | | THERAPY [address] | [place] | | | | | [place], | [address] | | | | | [place] [address] | | | | | | [phone] | Cesia Su | | | | | | M, Speech | | | | | | Pathologist [address] | | | | | | [address] [place] | | | | | | [place] [address] | | | | | | [phone] | | | | | | | [...] Speech Pathologist - 07/18/2016 9[facility]41 [facility] [address] [place] [address] Cancellation/No Show Date: 07/18/2016 Patient Information Patient [...] [place] | | | | | | [id number] | | | | | | | | +--------+---------+ + + + | 11/24/ | Office | Cardiology | [place], | | | 2019 | Visit | | SINDHU Erickson [address] | | | | | | [place], | | | | | | [place] [address] | | | | | | [phone] | | | | | | | | +--------+---------+ + + + documented as of this encounter Visit Diagnoses Not on filedocumented in this encounter"
--- OUTSIDE RECORDS SUMMARY | ~2019-01-15 | XMS | Encounter Summary ---
Demographics + + + | Address | [address] | | | [place] [address] | + + + | Home Phone [...] Providers + +------+ + | Care Slate Splitting Supervisor Name | Role | Phone | [...] | | | | unspecified | | [address] | | | | | laterality | | Phone: | | | | | Primary | | [phone] | | | | | localized | | Fax: | | | | | osteoarthros | | [phone] | | | | | is of hand, | | | | | | | unspecified | | | | | | | laterality | | | | | | | [[id number] | | | | | | | Procedures | | | | | | | DE REPAIR | | | | | | [...] + + | 06/18/ | Hospital | [facility] | Jesus Brady | | | 2018 | Encounter | MED CTR OR INTRA OP | J, DO [address] | | | | | [address] | [place], [place] | | | | | [place], [place] | [address] | | | | | [address] | [phone] | | | | | [phone] | | | +--------+ + + + [...] what medicines and drugsyou take. This includes zjbj-cyp-loq nter medicines, herbs, supplements, alcohol or other [...] adam p you safe. Date Last Reviewed: 01/25/201619993906-1936 [employer]. [address] [place] [address], [place] [address]. All righ ts reserved. This information is not intended as a substitute for professional medical care. Always follow your healthcare professional's instructions. [facility] Orthoped[facility] Post-op Instructions - Thumb Surgery The following instructions are meant to guide you following surgery until your first post-o perative visit 7-12 days later. For any problems or questions, please call our office at [phone], Friday through Friday, 9:00 am - 5:00 [...] that you may have received from the [facility] pital, advice from friends, family members, ecclesOzsaletical leaders, grocery store clerks, fox lee, Anu, Dr. Jain, Dr. Oz, sports heroes, etc. If unsure, please call our office. Thank you, Jesus Brady D.O. [facility] Orthoped[facility] [address] [place] [address] Your post op appointment is scheduled for Friday06/29/18 at 9:15am. Please check in at 8:45 am for X-rays at the [facility]. documented in this encounter Medications at Time [...] | | | | [place] | | | | | | [address] | | | | | | | | +--------+---------+ + + + | 11/24/ | Office | Cardiology | [place], | | | 2020 | Visit | | SINDHU Erickson [address] | | | | | | [place], | | | | | | [place] [address] | | | | | | [phone] | | | | | | | [...] [address] | [place] | [phone] | | [facility] | | [address] | | | - LABORATORY | | [...] ONCE PRN, Wheezing, | | | Starting [facility] 06/18/18 at 1306, | | | For 1 dose, RT will administer., | | | Pre-op | | + +---+ | | | + +---+ | albuterol 2.5 mg/3 mL nebulizer | | | solution 2.5 mg 2.5 mg, | | | Nebulization, ONCE PRN, Wheezing, | | | Starting [facility] 06/18/18 at 1542, | | | [...]
--- OUTSIDE RECORDS SUMMARY | ~2019-01-15 | XMS | Encounter Summary ---
Demographics + + + | Address | [address] | | | [place] [address] | + + + | Home Phone [...] Providers + +------+ + | Care Senior Ux Developer Name | Role | Phone | [...] 2013 | | MED CTR EMERGENCY | [place] [address] | exacerbation (HCC) | | | | [place] [address] [place] | [facility] ER [place] | (Primary Dx) | | | | [place], [place] | [place] [address] | | | | | [address] | [phone] | | | | | [phone] | | | +--------+ + + + [...] [place] | | | | | | [address] | | | | | | | | +--------+---------+ + + + | 11/24/ | Office | Cardiology | [place], | | | 2019 | Visit | | SINDHU Erickson [address] | | | | | | [place], | | | | | | [place] [address] | | | | | | [phone] | | | | | | | [...] + | MISCELLANEOUS LAB | | | [phone] | + +---------+ + + | MISCELANIOUS LAB | | | [phone] | + +---------+ + + ED INFORMATION EXCHANGE (08/13/2013 8:38 PM PDT) + + | Specimen | + + | | + + + + + | Narrative | Performed At | + + + | VISIT TRACKING (3 MO.) Visit Date Location | [facility] | | Type Diagnoses | | | -------- | | | ---- 08/13/2013 20:37 [place] | | | [facility] Emergency COPD Exasperation; | | | 07/18/2013 12:06 [facility] | | | Emergency Arm Laceration; | | | | | | Open wound of upper arm, without mention of complication; | | | | | | cut on Lft arm; 07/14/2013 00:15 | | | [facility] Emergency Shortness of | | | Breath; | | | Chronic obstructive | | | asthma with (acute) exacerbation; 06/19/2013 21:06 [place] | | | [facility] Emergency Obstructive chronic | | | bronchitis with (acute) exacerbation; | | | | | | Shortness of Breath; | | | diff | | | breathing; 06/19/2013 11:03 [facility] | | | Emergency COPD exasperation; 05/23/2013 19:52 | | | [facility] Emergency Obstructive | | | chronic bronchitis with (acute) exacerbation; | | | | | | Obstructive chronic bronchitis with (acute) | | | exacerbation; | | | sob; | | | | | | Shortness of Breath; VISIT COUNT (1 | | | YR.) Visits Medicaid NE Dx Location ------ | | | --------- 12 0 | | | [facility] 12 0 | | | Total Note: Visits indicate total known visits. Medicaid | | | NE Dx are the number of primary diagnoses on the [facility]'s non-emergent dx | | | list. | [...]
--- OUTSIDE RECORDS SUMMARY | ~2019-01-15 | XMS | Encounter Summary ---
Demographics + + + | Address | [address] | | | [place] [address] | + + + | Home Phone [...] Team Providers + +------+ + | Care Evs Tech Name | Role | Phone | + +------+ + | Juan Cherry DO | PCP | | + +------+ + Encounter Details +--------+ + + + + | Date | Type | Department | Care Team | Description | +--------+ + + + + | 11/08/ | Hospital | [facility] MEDICAL | Conversion | Asthma, moderate | | 2014 | Encounter | CENTER CARDIAC | Transaction, | persistent, | | | | PULMONARY REHAB | Provider Unknown | uncomplicated | | | | [address] [facility] | [phone] | | | | | [place], [place] | | | | | | [address] | | | | | | [phone] | | | +--------+ + + + [...] [place] | | | | | | [address] | | | | | | | | +--------+---------+ + + + | 11/24/ | Office | Cardiology | [place], | | | 2019 | Visit | | SINDHU Erickson [address] | | | | | | [place], | | | | | | [place] [address] | | | | | | [phone] | | | | | | | | +--------+---------+ + + + documented as of this encounter Visit Diagnoses + + | Diagnosis | + + | Asthma, moderate persistent, uncomplicated | + + documented in this encounter"
--- OUTSIDE RECORDS SUMMARY | ~2019-01-15 | XMS | Encounter Summary ---
Demographics + + + | Address | [address] | | | [place] [address] | + + + | Home Phone [...] Providers + +------+ + | Care Electric Needle Specialist Name | Role | Phone | [...] + | 09/12/ | Telephone | [facility] | Jared Mcdonough, | Appointment | | 2014 | | CARDIOLOGY [address] | [address] [place] | | | | | [place], | [place], | | | | | [place] [address] | [place] [address] | | | | | [phone] | [phone] | | | | | | | [...] [place] | | | | | | [address] | | | | | | | | +--------+---------+ + + + | 11/24/ | Office | Cardiology | [place], | | | 2019 | Visit | | SINDHU Erickson [address] | | | | | | [place], | | | | | | [place] [address] | | | | | | [phone] | | | | | | | | +--------+---------+ + + + documented as of this encounter Visit Diagnoses Not on filedocumented in this encounter"
--- OUTSIDE RECORDS SUMMARY | ~2019-01-15 | XMS | Encounter Summary ---
Demographics + + + | Address | [address] | | | [place] [address] | + + + | Home Phone [...] + +------+ + | Care Certified Medical Biller Name | Role | Phone | + [...] | | | MRI Brain w | [address] | | | | | | wo Contrast | Phone: | | | | | | | [phone] | | | | | | | Fax: | | | | | | | [phone] | | +--------+--------+ + + + + [...] | | | MRI Brain w | [address] | | | | | | wo Contrast | Phone: | | | | | | | [phone] | | | | | | | Fax: | | | | | | | [phone] | | +--------+--------+ + + + + Encounter Details +--------+ + + + + | Date | Type | Department | Care Team | Description | +--------+ + + + + | 08/09/ | Hospital | [facility] | Daya Decker, | Aleksandr prolactin | | 2016 | Encounter | MED CTR MRI [address] | MD [address] [facility] [facility] | level ([facility]) | | | | [place], | [place] | | | | | [place] [address] | [address] | | | | | [phone] | [phone] | | | | | | | [...] | | | | | order to [facility]. | | | | | [...] [place] | | | | | | [address] | | | | | | | | +--------+---------+ + + + | 11/24/ | Office | Cardiology | [place], | | | 2019 | Visit | | SINDHU Erickson [address] | | | | | | [place], | | | | | | [place] [address] | | | | | | [phone] | | | | | | | [...] mL/min/1.73m2 | [facility] | | | [facility] | | | MEDICAL | | | [...] [address] | [place] | [phone] | | [facility] | | [address] | | | - LABORATORY | | [...] and signal | | characteristics. No abnormal Y8qzrhsmhlxhyxbh, contrast enhancement, susceptibility | | change, or [...] | | | | PRN, Other, [facility] 08/10/15 | | AM PDT | | | | | at 0949, For 1 dose, MRI | | | | | | + +--------+ +--------+------+------+ +---+---+ | | | +---+---+ documented in this encounter"
--- OUTSIDE RECORDS SUMMARY | ~2019-01-15 | XMS | Encounter Summary ---
Demographics + + + | Address | [address] | | | [place] [address] | + + + | Home Phone [...] Providers + +------+ + | Care Mechanical Ordnance Assembler Name | Role | Phone | [...] + | 02/09/ | Telephone | [facility] | Jaime Kevin, | Other | | 2013 | | PULMONARY [address] | MD [address] | | | | | [place], | [place], [place] | | | | | [place] [address] | [address] | | | | | [phone] | | | +--------+ + + + [...] | | | | | | [place] [address] | | | | | | [phone] | | | | | | | | +--------+---------+ + + + documented as of this encounter Visit Diagnoses Not on filedocumented in this encounter"
--- OUTSIDE RECORDS SUMMARY | ~2019-01-15 | XMS | Encounter Summary ---
Demographics + + + | Address | [address] | | | [place] [address] | + + + | Home Phone [...] Providers + +------+ + | Care Network Control Operator Name | Role | Phone [...] [address] | | | | | [place], | [place], | | | | | [place] [address] | [place] [address] | | | | | [phone] | [phone] | | | | | | | [...] | | | | | | [place] [address] | | | | | | [phone] | | | | | | | | +--------+---------+ + + + documented as of this encounter Visit Diagnoses Not on filedocumented in this encounter"
--- OUTSIDE RECORDS SUMMARY | ~2019-01-15 | XMS | Encounter Summary ---
Demographics + + + | Address | [address] | | | [place] [address] | + + + | Home Phone [...] Provider Unknown | | | | | [place], [place] | [phone] | | | | | [address] | | | | | | [phone] | | | +--------+ + + + [...] | | | | [address] [place] [facility] | | | | | | [address] | | | | | | | | +--------+---------+ + + + | 11/24/ | Office | Cardiology | [place], | | | 2019 | Visit | | SINDHU Erickson [address] | | | | | | [place], | | | | | | [place] [address] | | | | | | [phone] | | | | | | | [...]
--- OUTSIDE RECORDS SUMMARY | ~2019-01-15 | XMS | Encounter Summary ---
Demographics + + + | Address | [address] | | | [place] [address] | + + + | Home Phone [...] Team Providers + +------+ + | Care Supply Chain Consultant Name | Role | Phone | [...] [address] | | | | | [place], | [place], | | | | | [place] [address] | [place] [address] | | | | | [phone] | [phone] | | | | | | | [...] | Mukul lCark MD | | | 2020 | Visit | | [address] | | | | | | [place] | | | | | | [address] | | | | | | | | +--------+---------+ + + + | 11/24/ | Office | Cardiology | [place], | | | 2019 | Visit | | SINDHU Erickson [address] | | | | | | [place], | | | | | | [place] [address] | | | | | | [phone] | | | | | | | [...]
--- OUTSIDE RECORDS SUMMARY | ~2019-01-15 | XMS | Encounter Summary ---
Demographics + + + | Address | [address] | | | [place] [address] | + + + | Home Phone [...] Team Providers + +------+ + | Care Saw Maker Name | Role | Phone | [...] + + | 11/11/ | Telephone | [facility] [place] | Shashi Segovia | Results | | 2013 | | PHYSIATRY [address] MD Need updated | | | | | [place], | address | | | | | [place] [address] | | | | | | [phone] | | | +--------+ + + + [...] [place] | | | | | | [address] | | | | | | | | +--------+---------+ + + + | 11/24/ | Office | Cardiology | [place], | | | 2019 | Visit | | SINDHU Erickson [address] | | | | | | [place], | | | | | | [place] [address] | | | | | | [phone] | | | | | | | | +--------+---------+ + + + documented as of this encounter Visit Diagnoses Not on filedocumented in this encounter"
--- OUTSIDE RECORDS SUMMARY | ~2019-01-15 | XMS | Encounter Summary ---
Demographics + + + | Address | [address] | | | [place] [address] | + + + | Home Phone [...] Providers + +------+ + | Care Guest Laundry Attendant Name | Role | Phone | + +------+ + | Juan Cherry DO | PCP | | + +------+ + Encounter Details +--------+ + + + + | Date | Type | Department | Care Team | Description | +--------+ + + + + | 11/08/ | Hospital | [facility] | Conversion | Asthma, moderate | | 2015 | Encounter | [facility] [address] | Transaction, | persistent, | | | | [address] | Provider Unknown | uncomplicated | | | | [place], [place] | [phone] | | | | | [address] | | | | | | [phone] | | | +--------+ + + + [...] [place] | | | | | | [address] | | | | | | | | +--------+---------+ + + + | 11/24/ | Office | Cardiology | [place] | | | 2019 | Visit | | SINDHU Erickson [address] | | | | | | [place], | | | | | | [place] [address] | | | | | | [phone] | | | | | | | [...]
--- OUTSIDE RECORDS SUMMARY | ~2019-01-15 | XMS | Encounter Summary ---
Demographics + + + | Address | [address] | | | [place] [address] | + + + | Home Phone [...] Team Providers + +------+ + | Care Distribution Center Manager Name | Role | Phone | [...] [address] | | | | | [place], | [place], | | | | | [place] [address] | [place] [address] | | | | | [phone] | [phone] | | | | | | | [...] | | | | | | [place] [address] | | | | | | [phone] | | | | | | | | +--------+---------+ + + + documented as of this encounter Visit Diagnoses Not on filedocumented in this encounter"
--- OUTSIDE RECORDS SUMMARY | ~2019-01-15 | XMS | Encounter Summary ---
Demographics + + + | Address | [address] | | | [place] [address] | + + + | Home Phone [...] Providers + +------+ + | Care Stone Lathe Operator Name | Role | Phone | + +------+ + | Juan Cherry DO | PCP | | + +------+ + Reason for Visit +--------+ + | Reason | Comments | +--------+ + | Other | referral to chief of vital statistics or dietian | +--------+ + Encounter Details +--------+ + + + + | Date | Type | Department | Care Team | Description | +--------+ + + + + | 04/03/ | Telephone | [facility] | [place], | Other (referral to | | 2017 | | CARDIOLOGY [address] | SINDHU Erickson [address] | chief of vital statistics or | | | | [place], | [place], | dietian) | | | | [place] [address] | [place] [address] | | | | | [phone] | [phone] | | | | | | | [...] | | | | | | [place] [address] | | | | | | [phone] | | | | | | | | +--------+---------+ + + + documented as of this encounter Visit Diagnoses Not on filedocumented in this encounter"
--- OUTSIDE RECORDS SUMMARY | ~2019-01-15 | XMS | Encounter Summary ---
Demographics + + + | Address | [address] | | | [place] [address] | + + + | Home Phone [...] Providers + +------+ + | Care Retail Greeter Name | Role | Phone | [...] + + | 10/18/ | Telephone | [facility] | Kevin Sandoval, | Other (increased | | 2013 | | PULMONARY [address] | MD [address] | shortness of breath) | | | | [place], | [place], [place] | | | | | [place] [address] | [address] | | | | | [phone] | | | +--------+ + + + [...] [place] | | | | | | [address] | | | | | | | | +--------+---------+ + + + | 11/24/ | Office | Cardiology | [place], | | | 2019 | Visit | | SINDHU Erickson [address] | | | | | | [place], | | | | | | [place] [address] | | | | | | [phone] | | | | | | | | +--------+---------+ + + + documented as of this encounter Visit Diagnoses Not on filedocumented in this encounter"
--- OUTSIDE RECORDS SUMMARY | ~2019-01-15 | XMS | Encounter Summary ---
Demographics + + + | Address | [address] | | | [place] [address] | + + + | Home Phone [...] + +------+ + | Care Director Of Ancillary Services Name | Role | Phone | + +------+ + | Juan Cherry DO | PCP | | + +------+ + Encounter Details +--------+ + + + + | Date | Type | Department | Care Team | Description | +--------+ + + + + | 12/17/ | Hospital | [facility] | Sahshi Segovia | Therapeutic drug | | 2013 | Encounter | MED CTR LABORATORY | MD Miryam Need updated | monitoring | | | | [address] | address | | | | | [place] | | | | | | [address] | | | | | | [phone] | | | +--------+ + + + [...] [place] | | | | | | [address] | | | | | | | | +--------+---------+ + + + | 11/24/ | Office | Cardiology | [place], | | | 2019 | Visit | | SINDHU Erickson [address] | | | | | | [place], | | | | | | [place] [address] | | | | | | [phone] | | | | | | | [...] mL/min/1.73m2 | [facility] | | | | | | [facility] - | | | | | | LABORATORY | | + +-------+ + + + + + | Specimen | + + | Blood | + + + + + + + | Performing | Address | City/State/Inscription House Health Centercode | Phone Number | | Organization | | | | + + + + + | [facility] | [address] | [place] | [phone] | | [facility] | | [address] | | | - LABORATORY | | | | + + + + + | [facility] | [address] | [place] | | | [facility] | | [address] | | | - LABORATORY | | [...] + | [facility] | [address] | [place], [place] | [phone] | | [facility] | | [address] | | | - LABORATORY | | | | + + + + + | [facility] | [address] | [place], [place] | | | [facility] | | [address] | | | - LABORATORY | | | | + + + + + documented in this encounter Visit Diagnoses + + | Diagnosis | + + | Therapeutic drug monitoring Encounter for therapeutic drug monitoring | + + documented in this encounter"
--- OUTSIDE RECORDS SUMMARY | ~2019-01-15 | XMS | Encounter Summary ---
Demographics + + + | Address | [address] | | | [place] [address] | + + + | Home Phone [...] Providers + +------+ + | Care Electric Stop Installer Name | Role | Phone | [...] | | | | [facility] | [address] | [address] | | | | | EXERCISE | [place], | [place] | | | | | | [place] [address] | [place], [place] | | | | | | Phone: | [address] | | | | | | [phone] | Phone: | | | | | | Fax: | [phone] | | | | | | [phone] | Fax: | | | | | | | [phone] | +--------+--------+ + + + + Encounter Details +--------+---------+ + + + | Date | Type | Department | Care Team | Description | +--------+---------+ + + + | 07/30/ | Office | [facility] | Jared Mcdonough, | Chronic obstructive | | 2017 | Visit | MED CTR CARDIAC | [address] | pulmonary disease, | | | | REHABILITATION [address] [place], | unspecified COPD | | | | [address] [place] | [place] [address] | type (HCC) (Primary | | | | [place] [address] | [phone] | Dx) | | | | [phone] | | | +--------+---------+ + + + [...] [place] | | | | | | [address] | | | | | | | | +--------+---------+ + + + | 11/24/ | Office | Cardiology | [place], | | | 2019 | Visit | | SINDHU Erickson [address] | | | | | | [place], | | | | | | [place] [address] | | | | | | [phone] | | | | | | | | +--------+---------+ + + + documented as of this encounter Visit Diagnoses + + | Diagnosis | + + | Chronic obstructive pulmonary disease, unspecified COPD type (HCC) - Primary | + + documented in this encounter"
--- OUTSIDE RECORDS SUMMARY | ~2019-01-15 | XMS | Encounter Summary ---
Demographics + + + | Address | [address] | | | [place] [address] | + + + | Home Phone [...] Team Providers + +------+ + | Care Correctional Therapy Director Name | Role | Phone | + +------+ + | Juan Cherry DO | PCP | | + +------+ + Encounter Details +--------+ + + + + | Date | Type | Department | Care Team | Description | +--------+ + + + + | 08/30/ | Hospital | [facility] | Yecenia Gallegos | | | 2012 | Encounter | MED CTR EMERGENCY | Yinka Aguirre MD [address] | | | | | CENTER [address] | [facility] | | | | | [place], [place] | [place] [address] | | | | | [address] | [phone] | | | | | [phone] | | | +--------+ + + + [...] [place] | | | | | | [address] | | | | | | | | +--------+---------+ + + + | 11/24/ | Office | Cardiology | [place], | | | 2019 | Visit | | SINDHU Erickson [address] | | | | | | [place], | | | | | | [place] [address] | | | | | | [phone] | | | | | | | | +--------+---------+ + + + documented as of this encounter Visit Diagnoses Not on filedocumented in this encounter"
--- OUTSIDE RECORDS SUMMARY | ~2019-01-15 | XMS | Encounter Summary ---
Demographics + + + | Address | [address] | | | [place] [address] | + + + | Home Phone [...] Team Providers + +------+ + | Care Plumbing Technician Name | Role | Phone | [...] [address] | | | | | [place], | [place], | | | | | [place] [address] | [place] [address] | | | | | [phone] | [phone] | | | | | | | [...] [place] | | | | | | [address] | | | | | | | | +--------+---------+ + + + | 11/24/ | Office | Cardiology | [place], | | | 2019 | Visit | | SINDHU Erickson [address] | | | | | | [place], | | | | | | [place] [address] | | | | | | [phone] | | | | | | | [...]
--- OUTSIDE RECORDS SUMMARY | ~2019-01-15 | XMS | Encounter Summary ---
Demographics + + + | Address | [address] | | | [place] [address] | + + + | Home Phone [...] Team Providers + +------+ + | Care Nc Machinist Name | Role | Phone | + +------+ + PCP | Unavailable | + +------+ + Encounter Details +--------+ + + + + | Date | Type | Department | Care Team | Description | +--------+ + + + + | 10/19/ | [facility] | [facility] | | | | 2008 | Encounter | MED CTR LABORATORY | | | | | | [address] | | | | | | [place] | | | | | | [address] | | | | | | [phone] | | | +--------+ + + + [...] [place] | | | | | | [address] | | | | | | | | +--------+---------+ + + + | 11/24/ | Office | Cardiology | [place], | | | 2020 | Visit | | SINDHU Erickson [address] | | | | | | [place], | | | | | | [place] [address] | | | | | | [phone] | | | | | | | | +--------+---------+ + + + documented as of this encounter Visit Diagnoses Not on filedocumented in this encounter"
--- OUTSIDE RECORDS SUMMARY | ~2019-01-15 | XMS | Encounter Summary ---
Demographics + + + | Address | [address] | | | [place] [address] | + + + | Home Phone [...] + + | 08/17/ | Office | [facility] | Jared Mcdonough, | Hospital discharge | | 2015 | Visit | CARDIOLOGY [address] | [address] [facility] | follow-up (Primary | | | | [place], | [place], | Dx); Tachycardia; | | | | [place] [address] | [place] [address] | Syncope, unspecified | | | | [phone] | [phone] | syncope type | | | | [...] time, patient was seen and admitted to [facility] on because she passed out. Workups [...] be assessed by crisis team in the [facility] room, patient flat out refused to [...] day. 15 tablet 3 Respiratory Therapy Supplies [facility] Please provide patient with necessary CPAP supplies ( she did not specify, okay to send order as appropriate) Diagnosis Code(s)327.23 . Length of Need 99 months. Please send order to [facility]. 1 each 0 [facility] Change [facility]AP back to 11-14 [...] and ventricular function don e at the [facility]. LVEF 78%. C. Holter Monitor 08/16/13 [...] E. Patient was seen and admitted to [facility] on 07/10/13 because she pa ssed [...] She is in a class I of [place] [employer] functional class. There is no [...] months. Electronically signed by: Jared Mcdonough MD [facility] 08/17/2014 Portions of this chart may have been created with [employer]land[employer] voice recognition software. Occasi onal wrong-word or [...] [place] | | | | | | [address] | | | | | | | | +--------+---------+ + + + | 11/24/ | Office | Cardiology | [place], | | | 2019 | Visit | | SINDHU Erickson [address] | | | | | | [place], | | | | | | [place] [address] | | | | | | [phone] | | | | | | | [...]
--- OUTSIDE RECORDS SUMMARY | ~2019-01-15 | XMS | Encounter Summary ---
Demographics + + + | Address | [address] | | | [place] [address] | + + + | Home Phone [...] + +------+ + | Care Guest Service Supervisor Name | Role | Phone | [...] | (obstructive | [address] | [place] | | | | | sleep | [place] | [place], | | | | | apnea) | [place] | [place] [address] | | | | | J44.9 | [address] | Phone: | | | | | (ICD-10-CM) | Phone: | [phone] | | | | | - 496 | [phone] | Fax: | | | | | (ICD-9-CM) - | Fax: | [phone] | | | | | Chronic | [phone] | | | | | | obstructive [...] + + | 04/28/ | Hospital | [facility] | Meghan Garcia MD | GARRY (obstructive | | 2019 - | Encounter | MED CTR SLEEP | [address] [facility] | sleep apnea); | | | | CENTER [address] [place] | [place] | Chronic obstructive | | 04/29/ | | [place] | [address] | pulmonary disease, | | 2019 | | [address] | | unspecified COPD | | | | [phone] | | type (HCC) | +--------+ + [...] | | | | | [facility]. | | | | | [...] [place] | | | | | | [address] | | | | | | | | +--------+---------+ + + + | 11/24/ | Office | Cardiology | [place], | | | 2019 | Visit | | SINDHU Erickson [address] | | | | | | [place], | | | | | | [place] [address] | | | | | | [phone] | | | | | | | [...] [facility] | | | [place] [address] Positive Airway | | | Pressure Titration [...] machine. 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 Alarcon in [place], [place]. | | | It indicates that [...] have | | | been created with [employer]ar Sounds voice recognition software. Occasional | | | [...] this chart may have been created with [employer] voice | | |recognition software. Occasional wrong-word [...] PST [facility] | | [place], [place] [address]Qzgjkjie Airway Pressure Titration | | Report on [...] for her COPD | | through her booth operator.She says since she stopped using her bilevel [...] reviewed the notes from Dr. Alarcon in [place], [place]. It | | indicates that patient [...] may have been created with | | [employer] voice recognition software. Occasional wrong-word or | [...]
--- OUTSIDE RECORDS SUMMARY | ~2019-01-15 | XMS | Clinical Summary ---
Demographics + + + | Address | [address] | | | [place] [address] | + + + | Home Phone [...] Team Providers + +------+ + | Care Incident Response Analyst Name | Role | Phone | [...] | | | | | [facility]. | | | | | | [...] [facility]. | | | | | | [...] Please send | | | order to [facility]., | | | Reported on | [...] + + + + + | Overview: [facility] 04/12/2010 Diverticulosis | | | | Next Colonoscopy | | | | Mammo | | | | Pap | | | | | + + + + + | Healthcare maintenance | 02/27/2012 | + + + + + | Overview: [facility]: 04/12/2010 Diverticulosis | + + + + [...] + + | Overview: Echocardiogram, 08/23/2013 at [facility] shows normal | | systolic left [...] + +---+ + + | Overview: LAUREAN[facility] [id number] Decision | + + + +---+ | [...] [place] | | | | | | [id number] | | | | | | | | +--------+---------+ + + + | 11/24/ | Office | Cardiology | [place], | | | 2019 | Visit | | SINDHU Erickson [address] | | | | | | [place] | | | | | | [place] [address] | | | | | | [phone] | | | | | | | [...] [place] | | | | | | ([address]) on 12/23/2018 | | | | | [...] +--------+ +---------+--------+ | MEDICARE | MEDICA | [id number] | | [phone] | | Medica | [...] rigoberto | | | 5 (Home) | [address] | | | | | | [phone] | | | | | | | 4 (Work) | | + +--------+ +--------+ + + | Rosario Malik | Worker | Self | [birth year] | | [address] | | | s Comp | | 1965 | [phone] | [place] | | | | | | 1 ([place]) | [address] | | | | | | [phone] | | | | | | | 3 (Work) | | + +--------+ +--------+ + + Advance Directives + + + + + | Type | Date Recorded | Patient | Explanation | | | | Reporter | | + + + + + | Power of | | | | | Railroad Firer/Fireman | | | | + + + [...]
--- OUTSIDE RECORDS SUMMARY | ~2019-01-15 | XMS | Encounter Summary ---
Demographics + + + | Address | [address] | | | [place] [address] | + + + | Home Phone [...] Team Providers + +------+ + | Care Investor Name | Role | Phone | [...] | PULMONARY [address] | RN | ([facility]); COPD (chronic | | | | [place], | | obstructive | | | | [place] [address] | | pulmonary disease) | | | | [phone] | | ([facility]) | +--------+ + + + + [...] [place] | | | | | | [address] | | | | | | | | +--------+---------+ + + + | 11/24/ | Office | Cardiology | [place], | | | 2019 | Visit | | SINDHU Erickson [address] | | | | | | [place], | | | | | | [place] [address] | | | | | | [phone] | | | | | | | [...]
--- OUTSIDE RECORDS SUMMARY | ~2019-01-15 | XMS | Encounter Summary ---
Demographics + + + | Address | [address] | | | [place] [address] | + + + | Home Phone [...] Team Providers + +------+ + | Care Firearms Inspector Name | Role | Phone | + +------+ + | Juan Cherry DO | PCP | | + +------+ + Encounter Details +--------+ + + + + | Date | Type | Department | Care Team | Description | +--------+ + + + + | 09/09/ | Hospital | [facility] | Conversion | Pain | | 2015 | Encounter | CONVERSION [address] | Transaction, | | | | | [address] | Provider Unknown | | | | | [place], [place] | [phone] | | | | | [address] | | | | | | [phone] | | | +--------+ + + + [...] | | | Jose R Snow [facility] | | | | | | [address] | | | | | | | | +--------+---------+ + + + | 11/24/ | Office | Cardiology | [place], | | | 2019 | Visit | | SINDHU Erickson [address] | | | | | | [place], | | | | | | [place] [address] | | | | | | [phone] | | | | | | | [...]
--- OUTSIDE RECORDS SUMMARY | ~2019-01-15 | XMS | Encounter Summary ---
Demographics + + + | Address | [address] | | | [place] [address] | + + + | Home Phone [...] Team Providers + +------+ + | Care Demo Coordinator Name | Role | Phone | + +------+ + PCP | Unavailable | + +------+ + Encounter Details +--------+ + + + + | Date | Type | Department | Care Team | Description | +--------+ + + + + | 10/17/ | Hospital | [facility] | Kevin Worthy | | | 2010 | Encounter | MED CTR MP INTRA OP | MD Ginny [address] | | | | | [address] | [place], [place] | | | | | [place], [place] | [address] | | | | | [address] | | | | | | [phone] | | | +--------+ + + + [...] [place] | | | | | | [address] | | | | | | | | +--------+---------+ + + + | 11/24/ | Office | Cardiology | [place], | | | 2019 | Visit | | SINDHU Erickson [address] | | | | | | [place], | | | | | | [place] [address] | | | | | | [phone] | | | | | | | | +--------+---------+ + + + documented as of this encounter Visit Diagnoses Not on filedocumented in this encounter"
--- OUTSIDE RECORDS SUMMARY | ~2019-01-15 | XMS | Encounter Summary ---
Demographics + + + | Address | [address] | | | [place] [address] | + + + | Home Phone [...] Providers + +------+ + | Care Nurse Case Management Name | Role | Phone | + +------+ + PCP | Unavailable | + +------+ + Encounter Details +--------+ + + + + | Date | Type | Department | Care Team | Description | +--------+ + + + + | [facility] | | | | 2008 - | Encounter | MED CTR OP REHAB | | | | | | [address] | | | | 02/23/ | | [place] [address] | | | | 2008 | | [phone] | | | +--------+ + + + [...] [place] | | | | | | [address] | | | | | | | | +--------+---------+ + + + | 11/24/ | Office | Cardiology | [place], | | | 2020 | Visit | | SINDHU Erickson [address] | | | | | | [place], | | | | | | [place] [address] | | | | | | [phone] | | | | | | | | +--------+---------+ + + + documented as of this encounter Visit Diagnoses Not on filedocumented in this encounter"
--- OUTSIDE RECORDS SUMMARY | ~2019-01-15 | XMS | Encounter Summary ---
Demographics + + + | Address | [address] | | | [place] [address] | + + + | Home Phone [...] Providers + +------+ + | Care Senior Formulation Scientist Name | Role | Phone | [...] | RN | | | | | [place], | | | | | | [place] [address] | | | | | | [phone] | | | +--------+ + + + [...] | | | | Jose R Snow [place] | | | | | | [address] | | | | | | | | +--------+---------+ + + + | 11/24/ | Office | Cardiology | [place], | | | 2019 | Visit | | SINDHU Erickson [address] | | | | | | [place], | | | | | | [place] [address] | | | | | | [phone] | | | | | | | | +--------+---------+ + + + documented as of this encounter Visit Diagnoses Not on filedocumented in this encounter"
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
--- OUTSIDE RECORDS SUMMARY | ~2019-01-15 | XMS | Encounter Summary ---
Demographics + + + | Address | [address] | | | [place] [address] | + + + | Home Phone [...] + +------+ + | Care Sales Expert Name | Role | Phone | [...] | | | | | [address] [place] | [place] | | | 12/24/ | | [place] [address] | [address] | | | 2009 | | [phone] | | | +--------+ + + + [...] [place] | | | | | | [address] | | | | | | | | +--------+---------+ + + + | 11/24/ | Office | Cardiology | [place], | | | 2019 | Visit | | SINDHU Erickson W | | | | | | [place] | | | | | | [place] [address] | | | | | | [phone] | | | | | | | | +--------+---------+ + + + documented as of this encounter Visit Diagnoses Not on filedocumented in this encounter"
--- OUTSIDE RECORDS SUMMARY | ~2019-01-15 | XMS | Encounter Summary ---
Demographics + + + | Address | [address] | | | [place] [address] | + + + | Home Phone [...] Providers + +------+ + | Care Evs Attendant Name | Role | Phone | [...] [address] | | | | | [place], | [place] | | | | | [place] [address] | [address] | | | | | [phone] | | | +--------+--------+ + + + [...] [place] | | | | | | [id number] | | | | | | | | +--------+---------+ + + + | 11/24/ | Office | Cardiology | [place], | | | 2019 | Visit | | SINDUH Erickson [address] | | | | | | [place] | | | | | | [place] [address] | | | | | | [phone] | | | | | | | | +--------+---------+ + + + documented as of this encounter Visit Diagnoses Not on filedocumented in this encounter"
--- OUTSIDE RECORDS SUMMARY | ~2019-01-15 | XMS | Encounter Summary ---
Demographics + + + | Address | [address] | | | [place] [address] | + + + | Home Phone [...] Providers + +------+ + | Care Financial Services Specialist Name | Role | Phone [...] | | | | [facility] | [address] | [address] | | | | | EXERCISE | [place], | [place] | | | | | | [place] [address] | [place], [place] | | | | | | Phone: | [address] | | | | | | [phone] | Phone: | | | | | | Fax: | [phone] | | | | | | [phone] | Fax: | | | | | | | [phone] | +--------+--------+ + + + + Encounter Details +--------+---------+ + + + | Date | Type | Department | Care Team | Description | +--------+---------+ + + + | 08/20/ | Office | [facility] | Jared Mcdonough, | Chronic obstructive | | 2017 | Visit | MED CTR CARDIAC | [address] | pulmonary disease, | | | | REHABILITATION [address] | [address] [place], | unspecified COPD | | | | [address] [place] | [place] [address] | type (HCC) (Primary | | | | [place] [address] | [phone] | Dx) | | | | [phone] | | | +--------+---------+ + + + [...] [place] | | | | | | [address] | | | | | | | | +--------+---------+ + + + | 11/24/ | Office | Cardiology | [place], | | | 2019 | Visit | | SINDHU Erickson [address] | | | | | | [place], | | | | | | [place] [address] | | | | | | [phone] | | | | | | | | +--------+---------+ + + + documented as of this encounter Visit Diagnoses + + | Diagnosis | + + | Chronic obstructive pulmonary disease, unspecified COPD type (HCC) - Primary | + + documented in this encounter"
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
--- OUTSIDE RECORDS SUMMARY | ~2019-01-15 | XMS | Encounter Summary ---
Demographics + + + | Address | [address] | | | [place] [address] | + + + | Home Phone [...] Providers + +------+ + | Care Manager Intel Name | Role | Phone | + [...] + + | 07/14/ | Office | [facility] | Elda Miranda | Asthma exacerbation | | 2012 | Visit | CONVENIENT CARE [address] | MD [address] | (Primary Dx) | | | | [facility] | [place] | | | | | [place] | [place] [address] | | | | | [address] | [phone] | | | | | [phone] | | | +--------+---------+ + + + [...] dyspnea. Lungs clear. Assessment: 1. Asthma exacerbation UT INHAL RX, AIRWAY OBST/DX SPUTUM INDUCT, albuterol [...] [place] | | | | | | [address] | | | | | | | | +--------+---------+ + + + | 11/24/ | Office | Cardiology | [place], | | | 2019 | Visit | | SINDHU Erickson [address] | | | | | | [place], | | | | | | [place] [address] | | | | | | [phone] | | | | | | | [...]
--- OUTSIDE RECORDS SUMMARY | ~2019-01-15 | XMS | Encounter Summary ---
Demographics + + + | Address | [address] | | | [place] [address] | + + + | Home Phone [...] Team Providers + +------+ + | Care Wireless Sales Associate Name | Role | Phone | + +------+ + | Juan Cherry DO | PCP | | + +------+ + Encounter Details +--------+ + + + + | Date | Type | Department | Care Team | Description | +--------+ + + + + | 02/08/ | Abstract | [facility] [place] | [place], | | | 2013 | | CARDIOLOGY [address] | SINDHU Erickson [address] | | | | | [place], | [place], | | | | | [place] [address] | [place] [address] | | | | | [phone] | [phone] | | | | | | | [...] [place] | | | | | | [address] | | | | | | | | +--------+---------+ + + + | 11/24/ | Office | Cardiology | [place], | | | 2019 | Visit | | SINDHU Erickson [address] | | | | | | [place] | | | | | | [place] [address] | | | | | | [phone] | | | | | | | | +--------+---------+ + + + documented as of this encounter Visit Diagnoses Not on filedocumented in this encounter"
--- OUTSIDE RECORDS SUMMARY | ~2019-01-15 | XMS | Encounter Summary ---
Demographics + + + | Address | [address] | | | [place] [address] | + + + | Home Phone [...] Providers + +------+ + | Care Instructional Consultant Name | Role | Phone | + +------+ + | Juan Cherry DO | PCP | | + +------+ + Encounter Details +--------+ + + + + | Date | Type | Department | Care Team | Description | +--------+ + + + + | 02/28/ | Hospital | [facility] | Jared Mcdonough, | Other chest pain | | 2015 | Encounter | MED CTR CV INTRA OP | MD [address] | | | | | [address] | [address] [place], | | | | | [place], [place] | [place] [address] | | | | | [address] | [phone] | | | | | [phone] | | | +--------+ + + + [...] | | | | send order to [facility] | | | | | [...] [place] | | | | | | [address] | | | | | | | | +--------+---------+ + + + | 11/24/ | Office | Cardiology | [place], | | | 2019 | Visit | | SINDHU Erickson [address] | | | | | | [place], | | | | | | [place] [address] | | | | | | [phone] | | | | | | | [...] RECORD NUMBER: | MEDICAL CENTER | | [id number] DATE OF PROCEDURE: 02/28/2014 COPIER AND PRINTER FIELD TECHNICIAN: | - IMAGING | | Jared Mcdonough [...] Malik, (1965) OF | | PROCEDURE: 02/28/2014PRIMARY OIL WINTERIZER: Jared Mcdonough MD PROCEDURES | | PERFORMED:Coronary [...] [address] | [place] | [phone] | | [facility] | | [address] | | | - IMAGING | | [...] | 0.94 | 0.60 - 1.30 | [facility] | | | | | mg/dL [...] mL/min/1.73m2 | [facility] | | | [facility] | RATE,ESTIMATED | | MEDICAL | | | | mL/min/1.19f8Aspm than | | CENTER - | | [...] + | [facility] | [address] | [place], [place] | [phone] | | [facility] | | [address] | | | - LABORATORY | | | | + + + + + | [facility] | [address] | [place], [place] | | | [facility] | | [address] | | | - LABORATORY | | [...]
--- OUTSIDE RECORDS SUMMARY | ~2019-01-15 | XMS | Encounter Summary ---
Demographics + + + | Address | [address] | | | [place] [address] | + + + | Home Phone [...] Providers + +------+ + | Care Neon Sign Mechanic Name | Role | Phone | [...] | with brief | [address] | [place] | | | | n | loss of | [address] | [place], | | | | | consciousnes | [place], | [place] [address] | | | | | s | [place] [address] | Phone: | | | | | Post-concuss | Phone: | [phone] | | | | | ion vertigo | [phone] | Fax: | | | | | [phone] | Fax: | [phone] | | | | | (ICD-10-CM) | [phone] | | | | | | - [...] + + | 05/07/ | Office | [facility] | Aaron Rodriguez, | Dizziness (Primary | | 2017 | Visit | MED CTR THERAPY PT | MD [address] | Dx); Impaired | | | | OP [address] | [place] | mobility and | | | | [place] | [phone] | activities of daily | | | | [address] | | living; Concussion | | | | [phone] | Lakeshia Cleary, PT | with brief (less | | | | | [address] | than one hour) loss | | | | | [place] | of consciousness; | | | | | [address] | Intractable acute | | | | [...] might be different from t he original. [facility] CTR THERAPY PT OP [address] [place] [address] Physical Therapy Daily Treatment Note Date: 05/07/2016 [...] Rehab Precautions Office Visit from 05/01/2016 in [facility] CTR THERAPY PT OP Rehab [...] [place] | | | | | | [address] | | | | | | | | +--------+---------+ + + + | 11/24/ | Office | Cardiology | [place], | | | 2020 | Visit | | SINDHU Erickson [address] | | | | | | [place], | | | | | | [place] [address] | | | | | | [phone] | | | | | | | [...]
--- OUTSIDE RECORDS SUMMARY | ~2019-01-15 | XMS | Encounter Summary ---
Demographics + + + | Address | [address] | | | [place] [address] | + + + | Home Phone [...] Providers + +------+ + | Care Supervisor Payroll Name | Role | Phone | + +------+ + PCP | Unavailable | + +------+ + Encounter Details +--------+ + + + + | Date | Type | Department | Care Team | Description | +--------+ + + + + | 05/30/ | [facility] | [facility] | | | | 2009 - | Encounter | MED CTR OP REHAB | | | | | | [address] [place] | | | | 06/23/ | | [place] [address] | | | | 2009 | | [phone] | | | +--------+ + + + [...] [place] | | | | | | [address] | | | | | | | | +--------+---------+ + + + | 11/24/ | Office | Cardiology | [place], | | | 2020 | Visit | | SINDHU Erickson [address] | | | | | | [place], | | | | | | [place] [address] | | | | | | [phone] | | | | | | | | +--------+---------+ + + + documented as of this encounter Visit Diagnoses Not on filedocumented in this encounter"
--- OUTSIDE RECORDS SUMMARY | ~2019-01-15 | XMS | Encounter Summary ---
Demographics + + + | Address | [address] | | | [place] [address] | + + + | Home Phone [...] Team Providers + +------+ + | Care Secondary History Teacher Name | Role | Phone | [...] + + | 04/13/ | Emergency | [facility] | Alverto Tyler, | Abdominal pain, | | 2016 | | MED CTR EMERGENCY | [address] [address] | acute, epigastric | | | | CENTER [address] | [place] | (Primary Dx) | | | | [place] | [address] | | | | | [address] | | | | | | [phone] | Ozzy Louis | | | | | | MD Julio [address] | | | | | | [place] | | | | | | [address] | | | | | | [phone] | | | | | | | | | | | | Nestor Martinez MD | | | | | | [address] | | | | | | [place] | | | | | | [id number] | | | | | | | [...] [place] | | | | | | [address] | | | | | | | | +--------+---------+ + + + | 11/24/ | Office | Cardiology | [place], | | | 2020 | Visit | | SINDHU Erickson [address] | | | | | | [place], | | | | | | [place] [address] | | | | | | [phone] | | | | | | | [...] + | [facility] | [address] | [place], [place] | [phone] | | [facility] | | [address] | | | - LABORATORY | | [...] | | | FILTRATION | mL/min/1.73m2 | [facility] | | | [place]QI | RATE,ESTIMATED | | MEDICAL | | | | mL/min/1.19i3Zfhp than | | CENTER - | | [...] | | | | | mg/dL | [facility] | | | | | [...] ST. | [address] | [place], [place] | [phone] | | [facility] | | [address] | | | - LABORATORY | | [...]
--- OUTSIDE RECORDS SUMMARY | ~2019-01-15 | XMS | Encounter Summary ---
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 [address] [place] [address]. All righ ts reserved. This information is not intended as a substitute for professional medical care. Always follow your healthcare professional's instructions. documented in this encounter Progress Notes Shashi Segovia MD - 06/23/2014 8:20 AM PDTFormatting of this note might be differen t from the original. Shashi Segovia MD [address] [place] [address], [address] [place] [address] Neurology Outpatient ProgressNote Patient ID: Ms. Malik [...] within her pituitary. She recently saw an entry level finance who noted he r visual acuity changed, [...] an upcoming appointment with endocrin ology at [facility]. Past Medical History: Past Medical History [...] duct (pouch) (HCC) 10/28/2012 Overview: Managed by [facility] [...] Need 99 months. [facility] send [facility] to [facility] Respiratory Therapy Supplies MISC (Taking) Change [...] of 10 mL of Gadavist. Dedicated small cpjnf-tz-xxfv thin section imaging through the pituitary region [...] as needed. Discussed my upcoming departure from [place]. If charis valderrama has issues before August [...] | | | | | | [place] [address] | | | | | | [phone] | | | | | | | [...]
--- OUTSIDE RECORDS SUMMARY | ~2019-01-15 | XMS | Encounter Summary ---
Demographics + + + | Address | [address] | | | [place] [address] | + + + | Home Phone [...] Team Providers + +------+ + | Care Ict Managers Name | Role | Phone | + [...] Refill | | 2016 | | [address] | MD Robert [address] | | | | | [place] | [facility]OM [facility] | | | | | [address] | [place] [address] | | | | | [phone] | [phone] | | | | | | | [...] [place] | | | | | | [address] | | | | | | | | +--------+---------+ + + + | 11/24/ | Office | Cardiology | [place], | | | 2019 | Visit | | SINDHU Erickson [address] | | | | | | [place], | | | | | | [place] [address] | | | | | | [phone] | | | | | | | | +--------+---------+ + + + documented as of this encounter Visit Diagnoses Not on filedocumented in this encounter"
--- OUTSIDE RECORDS SUMMARY | ~2019-01-15 | XMS | Encounter Summary ---
Demographics + + + | Address | [address] | | | [place] [address] | + + + | Home Phone [...] Providers + +------+ + | Care Bilingual Kindergarten Teacher Name | Role | Phone | [...] [address] | | | | | [place] | [facility]OM [facility] | | | | | [address] | [place] [address] | | | | | [phone] | [phone] | | | | | | | [...] [place] | | | | | | [address] | | | | | | | | +--------+---------+ + + + | 11/24/ | Office | Cardiology | [place], | | | 2019 | Visit | | SINDHU Erickson [address] | | | | | | [place], | | | | | | [place] [address] | | | | | | [phone] | | | | | | | | +--------+---------+ + + + documented as of this encounter Visit Diagnoses Not on filedocumented in this encounter"
--- OUTSIDE RECORDS SUMMARY | ~2019-01-15 | XMS | Encounter Summary ---
Demographics + + + | Address | [address] | | | [place] [address] | + + + | Home Phone [...] Providers + +------+ + | Care Elementary School Reading Teacher Name | Role | Phone | [...] | | | | CENTER [address] | [address] | of stomach (Primary | | | | [place], [place] | [place], [place] | Dx) | | | | [address] | [address] | | | | | [phone] | | | +--------+ + + + [...] other worsening symptoms. Please follow-up with her [facility] physician. documented in this encounter Medications [...] [place] | | | | | | [address] | | | | | | | | +--------+---------+ + + + | 11/24/ | Office | Cardiology | [place] | | | 2019 | Visit | | SINDHU Erickson [address] | | | | | | [place], | | | | | | [place] [address] | | | | | | [phone] | | | | | | | [...] - 1.030 | [facility] | | | [place] | | | [facility] | | [...] [address] | [place] | [phone] | | [facility] | | [address] | | | - LABORATORY | | [...] | A preliminary report was sent by [facility] on 04/12/2015 at | | | 9:16 [...] Chanelle fundoplication.A preliminary report was sent by [facility] on 04/12/2015 at | | 9:16 PM [...] | |A preliminary report was sent by [facility] on 04/12/2015 at 9:16 PM with no | |significant discrepancy. | | | |Dictated and Signed by: Kobe Lentz MD | | Electronically signed: 04/13/2015 8:26 AM | + + + +---------+ + + | Performing | Address | City/State/[facility] Centercode | Phone Number | | [...] + | [facility] | [address] | [place] | [phone] | | [facility] | | [address] | | | - LABORATORY | | [...] [address] | [place] | [phone] | | [facility] | | [address] | | | - LABORATORY | | [...] | | | | | | [facility] | | | [...] [address] | [place] | [phone] | | [facility] | | [address] | | | - LABORATORY | | [...] | | | FILTRATION | mL/min/1.73m2 | [facility] | | | [place] | RATE,ESTIMATED | | MEDICAL | | | | mL/min/1.66m6Gagw than | | CENTER - | | [...] [address] | [place] | [phone] | | [facility] | | [address] | | | - LABORATORY | | [...] [address] | [place] | [phone] | | [facility] | | [address] | | | - LABORATORY | | [...] | | | | RAFA WELLS MD ([id number]) | | | | | | on [...]
--- OUTSIDE RECORDS SUMMARY | ~2019-01-15 | XMS | Encounter Summary ---
Demographics + + + | Address | [address] | | | [place] [address] | + + + | Home Phone [...] Providers + +------+ + | Care Surgical Asst Name | Role | Phone | [...] | Concussion | Aaron Kim MD | Warehousing Technician [address] | | | Required | | with brief | [address] | [place] | | | | | loss of | [address] | [place], [place] | | | | | consciousnes | [place], | [address] | | | | | s Word | [place] [address] | Phone: | | | | | finding | Phone: | [phone] | | | | | difficulty | [phone] | Fax: | | | | | S06.0X9A | Fax: | [phone] | | | | | (ICD-10-CM) | [phone] | | | | | | - [...] + + | 08/21/ | Hospital | [facility] | Aaron Rodriguez, | Impaired memory | | 2017 | Encounter | MED CTR SPEECH | MD [address] | (Primary Dx); Word | | | | THERAPY [address] | [place] | finding difficulty | | | | [place], | [address] | | | | | [place] [address] | | | | | | [phone] | Kathi Soto, | | | | [...] | | | | | [facility] [place] | | | | | | | [...] | 0 | 10/13/19 | | | Kjsbptcxbe-ERJN-Jbtu | mouth as needed. | | | 16 | 7 | | -Cod 92-358-04-30 MG | | | | | | [...] Speech Pathologist - 08/21/2016 2:14 PM PDT [facility] [address] [facility] [address] Speech Therapy Daily Treatment Note Date: 08/21/2016 Patient Information Patient Name: Rosario Malik Date of : 1965 Age: 51 y.o. Encounter Diagnoses Code Name Primary? R41.3 Impaired memory Yes R47.89 Word finding difficulty Date of Onset: 03/15/2016 Referring Provider: Aaron Rodriguez MD Rehab Precautions Flowsheet Row Office Visit from 05/01/2016 in [facility] THERAPY PT OP Rehab Precautions Precautions None Rehab Learning Style Flowsheet Row [employer] OP EVAL from 05/16/2016 in [facility] SPEECH THERAPY O ffice Visit from 05/01/2016 in [facility] THERAPY PT OP Learning Style Patient's [...] | | | | [place] | | | | | | [id number] | | | | | | | | +--------+---------+ + + + | 11/24/ | Office | Cardiology | [place], | | | 2019 | Visit | | SINDHU Erickson [address] | | | | | | [place], | | | | | | [place] [address] | | | | | | [phone] | | | | | | | [...]
--- OUTSIDE RECORDS SUMMARY | ~2019-01-15 | XMS | Encounter Summary ---
Demographics + + + | Address | [address] | | | [place] [address] | + + + | Home Phone [...] Team Providers + +------+ + | Care Formula Technician Name | Role | Phone | + +------+ + PCP | Unavailable | + +------+ + Encounter Details +--------+ + + + + | Date | Type | Department | Care Team | Description | +--------+ + + + + | 10/09/ | Hospital | [facility] | Avi, Guru Garzon, | | | 2010 - | Encounter | MED CTR EMERGENCY | MD [address] | | | | | CENTER [address] | [facility] [place] | | | 10/10/ | | [place], [place] | [place] [address] | | | 2010 | | [address] | [phone] | | | | | [phone] | | | +--------+ + + + [...] | | | | | | [place] [address] | | | | | | [phone] | | | | | | | [...] | [facility] Diagnostic Imaging Department | [facility] | | [address] [facility] | [facility] | | NONCONTRAST HEAD CT, 2330 HOURS, [...] | | | Transcribed Date/Time: 10/10/2010 11:50 Brick Handler: | | | <Electronically Signed by Elías Cardoso MD> 10/11/10 0821 | | + + + + + | Procedure Note | + + | Reed, Rad Conversion - 04/02/2013 3:[address] [facility] | | Diagnostic Imaging Department [address] [place] [address] | | NONCONTRAST HEAD CT, 2330 HOURS, [...] 11:33 | |Transcribed Date/Time: 10/10/2010 11:50 | |Brick Handler: | |<Electronically Signed by Elías Cardoso [...]
--- OUTSIDE RECORDS SUMMARY | ~2019-01-15 | XMS | Encounter Summary ---
Demographics + + + | Address | [address] | | | [place] [address] | + + + | Home Phone [...] Team Providers + +------+ + | Care Bakery Products Checker Name | Role | Phone | + +------+ + PCP | Unavailable | + +------+ + Encounter Details +--------+ + + + + | Date | Type | Department | Care Team | Description | +--------+ + + + + | 11/08/ | Hospital | [facility] | Ozzy Delcid, | | | 2009 - | Encounter | MED CTR OP REHAB | [address] | | | | | [address] [place] | [place] | | | 11/23/ | | [place] [address] | [address] | | | 2009 | | [phone] | | | +--------+ + + + [...] [place] | | | | | | [address] | | | | | | | | +--------+---------+ + + + | 11/24/ | Office | Cardiology | [place], | | | 2019 | Visit | | SINDHU Erickson W | | | | | | [place] | | | | | | [place] [address] | | | | | | [phone] | | | | | | | | +--------+---------+ + + + documented as of this encounter Visit Diagnoses Not on filedocumented in this encounter"
--- OUTSIDE RECORDS SUMMARY | ~2019-01-15 | XMS | Encounter Summary ---
Demographics + + + | Address | [address] | | | [place] [address] | + + + | Home Phone [...] Team Providers + +------+ + | Care Turf Keeper Name | Role | Phone | + +------+ + | Ozzy Delcid MD | PCP | | + +------+ + Encounter Details +--------+ + + + + | Date | Type | Department | Care Team | Description | +--------+ + + + + | 07/03/ | Hospital | [facility] | Freddy Hill | | | 2011 | Encounter | MED CTR EMERGENCY | MD JAMARI [address] | | | | | CENTER [address] | [place] | | | | | [place], [place] | [place] [address] | | | | | [address] | [phone] | | | | | [phone] | | | +--------+ + + + [...] | | | | | | [place] [address] | | | | | | [phone] | | | | | | | [...] Performed At | + + + | [facility] Diagnostic Imaging Department | [facility] | | [address] [facility] | [facility] | | PORTABLE CHEST CLINICAL | DIAG [...] Transcribed Date/Time: 07/05/2011 | | | 10:46 Cutter And Presser: <Electronically Signed by Cesar Singh | | | MD Mikal> 07/05/11 1343 | | + + + + + | Procedure Note | + + | Reed, Rad Conversion - 04/02/2013 5:18 PM [facility] | | Diagnostic Imaging Department [facility] | | PORTABLE CHEST CLINICAL HISTORY: [...] 10:29 | |Transcribed Date/Time: 07/05/2011 10:46 | |Cutter And Presser: | |<Electronically Signed by Cesar Ren MD> [...]
--- OUTSIDE RECORDS SUMMARY | ~2019-01-15 | XMS | Encounter Summary ---
Demographics + + + | Address | [address] | | | [place] [address] | + + + | Home Phone [...] Team Providers + +------+ + | Care Story Reader Name | Role | Phone | [...] | RN | | | | | [place], | | | | | | [place] [address] | | | | | | [phone] | | | +--------+ + + + [...] | | | | Jose R [place] | | | | | | [address] | | | | | | | | +--------+---------+ + + + | 11/24/ | Office | Cardiology | [place], | | | 2019 | Visit | | SINDHU Erickson [address] | | | | | | [place], | | | | | | [place] [address] | | | | | | [phone] | | | | | | | | +--------+---------+ + + + documented as of this encounter Visit Diagnoses Not on filedocumented in this encounter"
--- OUTSIDE RECORDS SUMMARY | ~2019-01-15 | XMS | Encounter Summary ---
Demographics + + + | Address | [address] | | | [place] [address] | + + + | Home Phone [...] Team Providers + +------+ + | Care Decal Decorator Name | Role | Phone | + [...] covered) | | | | [place] | [facility] | | | | | [address] | [place] [address] | | | | | [phone] | [phone] | | | | | | | [...] | | | | | | [place] [address] | | | | | | [phone] | | | | | | | | +--------+---------+ + + + documented as of this encounter Visit Diagnoses Not on filedocumented in this encounter"
--- OUTSIDE RECORDS SUMMARY | ~2019-01-15 | XMS | Encounter Summary ---
Demographics + + + | Address | [address] | | | [place] [address] | + + + | Home Phone [...] Providers + +------+ + | Care Pharmacy Clinical Specialist Name | Role | Phone | [...] + + | 02/19/ | Office | [facility] | Elda Miranda | Diarrhea (Primary | | 2011 | Visit | CONVENIENT CARE [address] | MD [address] | Dx); Dysuria | | | | [facility] | [address] [facility] | | | | | [place] | [place] [address] | | | | | [address] | [phone] | | | | | [phone] | | | +--------+---------+ + + + [...] allergies reviewed. Review of Systems As per [facility] Objective: Physical Exam Vital signs as noted, nursing notes reviewed. Jtgbhri-ajbu-rgxlwiual well-nourished female in no apparent distress, pleasant [...] [place] | | | | | | [address] | | | | | | | | +--------+---------+ + + + | 11/24/ | Office | Cardiology | [place], | | | 2019 | Visit | | SINDHU Erickson [address] | | | | | | [place], | | | | | | [place] [address] | | | | | | [phone] | | | | | | | [...] | 1.015 | | | | | [place], | | | | | | [...]
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
--- OUTSIDE RECORDS SUMMARY | ~2019-01-15 | XMS | Encounter Summary ---
Demographics + + + | Address | [address] | | | [place] [address] | + + + | Home Phone [...] Providers + +------+ + | Care Public Address System Installer Name | Role | Phone | [...] | obstruction, not | | | | [place], | [place], [place] | elsewhere classified | | | | [place] [address] | [address] | ([facility]) (Primary Dx) | | | | [phone] | | | +--------+ + + + [...] [place] | | | | | | [address] | | | | | | | | +--------+---------+ + + + | 11/24/ | Office | Cardiology | [place], | | | 2019 | Visit | | SINDHU Erickson [address] | | | | | | [place], | | | | | | [place] [address] | | | | | | [phone] | | | | | | | | +--------+---------+ + + + documented as of this encounter Visit Diagnoses + + | Diagnosis | + + | Chronic airway obstruction, not elsewhere classified - Primary | + + documented in this encounter"
--- OUTSIDE RECORDS SUMMARY | ~2019-01-15 | XMS | Encounter Summary ---
Demographics + + + | Address | [address] | | | [place] [address] | + + + | Home Phone [...] Team Providers + +------+ + | Care City Detective Name | Role | Phone | + [...] | with brief | [address] | [place] | | | | n | loss of | [address] | [place], | | | | | consciousnes | [place], | [place] [address] | | | | | s | [place] [address] | Phone: | | | | | Post-concuss | Phone: | [phone] | | | | | ion vertigo | [phone] | Fax: | | | | | [id number] | Fax: | [phone] | | | | | (ICD-10-CM) | [phone] | | | | | | - [...] | Concussion | Aaron Kim MD | Pastry Mixer [address] | | | Required | | with brief | [address] | [place] | | | | | loss of | [address] | [place], [place] | | | | | consciousnes | [place], | [address] | | | | | s Word | [place] [address] | Phone: | | | | | finding | Phone: | [phone] | | | | | difficulty | [phone] | Fax: | | | | | S06.0X9A | Fax: | [phone] | | | | | (ICD-10-CM) | [phone] | | | | | | - [...] + + | 04/11/ | Office | [facility] [place] | Aaron Santoyo, | Concussion with | | 2016 | Visit | PHYSIATRY [address] | [address] | brief loss of | | | | [place], | [place], [place] | consciousness | | | | [place] [address] | [address] | (Primary Dx); | | | | [phone] | | Post-concussion | | | | [...] MD - 04/11/2016 12:43 PM PST [facility] PHYSIATRY [address] [facility] [address] OFFICE NOTE AARON SANTOYO JR, MD Patient: JADYN SCHMITZ Admitting: MR #: [id number] LOC: PT TYPE: Adm Date: 04/11/2016 : 1965 PHYSICAL MEDICINE REHABILITATION PROGRESS NOTE DATE OF : 1965 PRIMARY CARE PROVIDER: Yong Cherry DO DATE OF SERVICE: 04/11/2016 PATIENT IDENTIFICATION: A 51-year-old female with mechanical fall, concussion, and brief loss of consciousness on 03/15/2016. HISTORY OF PRESENT ILLNESS: The patient was last seen by ok 03/28/2016. She had a concuss ion 03/23/2016 [...] Transcribed on 04/11/2016 20:34:55 by ms job# [id number] Confirmation #: [id number] cc: YONG CHERRY DO ichael, Aaron Kim MD - 04/11/2016 11:47 AM PSTThis office note has been dictated. Report Confirmation# [id number] signed by Aaron Santoyo MD at 04/11/2016 [...] | | | | | | [place] [address] | | | | | | [phone] | | | | | | | [...]
--- OUTSIDE RECORDS SUMMARY | ~2019-01-15 | XMS | Encounter Summary ---
Demographics + + + | Address | [address] | | | [place] [address] | + + + | Home Phone [...] Team Providers + +------+ + | Care Conduit Cleaner Name | Role | Phone | [...] + | 12/28/ | [facility] [place] | Off[place], | COPD exacerbation | | 2012 | Visit | PULMONARY [address] | Loreta Alonso MD | ([facility]) (Primary Dx); | | | | [address], | | GARRY (obstructive | | | | [place] [address] | | sleep apnea); | | | | [phone] | | Central sleep apnea | +--------+---------+ [...] MD [place] Pulmonary and Critical Care [facility] [address] [place], [address] HPI Rosario Malik is a 47 y.o. female patient of Juan Cherry here today for follow up of COPD. She notes that she moved back from [place] in November at some point. She had a difficult t francy while in [place], requiring hospitalization 2 times at [facility], once in September an d October. She returned, and developed symptoms of an exacerbation, and called in. We referred her to urgent care, and she went to emergency room. She was hypoxemic despite nebulizers, and so wa s admitted. She was in the hospital for two nights. Before she left for [place], she was on Advair and Combivent. She then added Ventolin/Prov entil. She then started Spiriva at her most recent hospitalization. Curently, she is on Spir aravind, Advair, Combivent, ProAir, and albuterol nebulizers. She was given levofloxacin at discharge, but it apparently reacts with her Geodon, so was n ot filled by [facility]. 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 documented in [...] [place], | | | | | | [place] [address] | | | | | | [phone] | | | | | | | [...]
--- OUTSIDE RECORDS SUMMARY | ~2019-01-15 | XMS | Encounter Summary ---
Demographics + + + | Address | [address] | | | [place] [address] | + + + | Home Phone [...] Providers + +------+ + | Care Breast Surgeon Name | Role | Phone | [...] | 07/03/ | Office | [facility] | Maxim Delgado PA | GARRY on CPAP (Primary | | 2012 | Visit | SLEEP DISORDER [address] | [address] | Dx); Organic | | | | [address] [place] | [place] | insomnia, | | | | [place] [address] | [address] | unspecified | | | | [phone] | | | +--------+---------+ + + + [...] 10/15/2011 AHI: 47.1 RDI: 53.4 Machine type: [employer] with full face mask obtained from: [facility] pressure is: 13 cm 95%: 13.0 cm [...] error. I had her work with a career resource technician to ensure that she was fitting [...] month, sooner prn. Fifteen minutes were spent [id number], wit h the majority of time spent [...] [place] | | | | | | [address] | | | | | | | | +--------+---------+ + + + | 11/24/ | Office | Cardiology | [place], | | | 2019 | Visit | | SINDHU Erickson [address] | | | | | | [place], | | | | | | [place] [address] | | | | | | [phone] | | | | | | | | +--------+---------+ + + + documented as of this encounter Visit Diagnoses + + | Diagnosis | + + | GARRY on CPAP - Primary Obstructive sleep apnea (adult) (pediatric) | + + | Organic insomnia, unspecified | + + documented in this encounter"
--- OUTSIDE RECORDS SUMMARY | ~2019-01-15 | XMS | Encounter Summary ---
Demographics + + + | Address | [address] | | | [place] [address] | + + + | Home Phone [...] Team Providers + +------+ + | Care Drama Therapist Name | Role | Phone | [...] [address] | | | | | [place], [place] | [facility] | | | | | [address] | [place] [address] | | | | | [phone] | [phone] | | | | | | | [...] [place] | | | | | | [address] | | | | | | | | +--------+---------+ + + + | 11/24/ | Office | Cardiology | [place], | | | 2019 | Visit | | SINDHU Erickson [address] | | | | | | [place], | | | | | | [place] [address] | | | | | | [phone] | | | | | | | | +--------+---------+ + + + documented as of this encounter Visit Diagnoses Not on filedocumented in this encounter"
--- OUTSIDE RECORDS SUMMARY | ~2019-01-15 | XMS | Encounter Summary ---
Demographics + + + | Address | [address] | | | [place] [address] | + + + | Home Phone [...] Providers + +------+ + | Care Travel Sales Consultant Name | Role | Phone [...] Headache | Shashi Witt, | [address] | | | | | Pituitary | MD Need | [place], | | | | | tumor | updated | [place] | | | | | Procedures | address | [address] | | | | | CT Head w wo | | Phone: | | | | | Contrast | | [phone] | | | | | | | Fax: | | | | | | | [phone] | +--------+--------+ + + + + Reason for Visit +--------+ + | Reason | Comments | +--------+ + | Other | Schedule MRI | +--------+ + Encounter Details +--------+ + + + + | Date | Type | Department | Care Team | Description | +--------+ + + + + | 11/24/ | Telephone | [facility] | Aneta Rain | Other (Schedule MRI) | | 2013 | | NEUROLOGY ADRIANA | N, RN | | | | | [address], | | | | | | [address] [place] | | | | | | [place] [address] | | | | | | [phone] | | | +--------+ + + + [...] [place] | | | | | | [address] | | | | | | | | +--------+---------+ + + + | 11/24/ | Office | Cardiology | [place], | | | 2019 | Visit | | SINDHU Erickson [address] | | | | | | [place], | | | | | | [place] [address] | | | | | | [phone] | | | | | | | [...] + | MISCELLANEOUS LAB | | | [phone] | + +---------+ + + | MISCELANIOUS LAB | | | [phone] | + +---------+ + + documented in this encounter Visit Diagnoses + + | Diagnosis | + + | Headache - Primary | + + | 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
--- OUTSIDE RECORDS SUMMARY | ~2019-01-15 | XMS | Encounter Summary ---
Demographics + + + | Address | [address] | | | [place] [address] | + + + | Home Phone [...] Team Providers + +------+ + | Care Sand Slinger Name | Role | Phone | + +------+ + | Juan Cherry DO | PCP | | + +------+ + Encounter Details +--------+ + + + + | Date | Type | Department | Care Team | Description | +--------+ + + + + | 11/08/ | Hospital | [facility] | Conversion | Asthma, moderate | | 2015 | Encounter | [facility] [address] | Transaction, | persistent, | | | | [address] | Provider Unknown | uncomplicated | | | | [place], [place] | [phone] | | | | | [address] | | | | | | [phone] | | | +--------+ + + + [...] [place] | | | | | | [address] | | | | | | | | +--------+---------+ + + + | 11/24/ | Office | Cardiology | [place] | | | 2019 | Visit | | SINDHU Erickson [address] | | | | | | [place], | | | | | | [place] [address] | | | | | | [phone] | | | | | | | [...]
--- OUTSIDE RECORDS SUMMARY | ~2019-01-15 | XMS | Encounter Summary ---
Demographics + + + | Address | [address] | | | [place] [address] | + + + | Home Phone [...] Team Providers + +------+ + | Care Link Assembler Name | Role | Phone | [...] + + | 07/24/ | Telephone | [facility] | Andriy Weber | Hematuria; Bladder | | 2017 | | [address] | MD [address] | Pain | | | | [place], [place] | [address] [facility] | | | | | [address] | [place] [address] | | | | | [phone] | [phone] | | | | | | | [...] | | | | | | [place] [address] | | | | | | [phone] | | | | | | | | +--------+---------+ + + + documented as of this encounter Visit Diagnoses Not on filedocumented in this encounter"
--- OUTSIDE RECORDS SUMMARY | ~2019-01-15 | XMS | Encounter Summary ---
Demographics + + + | Address | [address] | | | [place] [address] | + + + | Home Phone [...] Team Providers + +------+ + | Care Waistline Joiner Lockstitch Name | Role | Phone | + [...] + + | 09/25/ | Office | [facility] | [place], | Chest pain, | | 2016 | Visit | CARDIOLOGY [address] | SINDHU Erickson [address] | unspecified type | | | | [place], | [place], | (Primary Dx); | | | | [place] [address] | [place] [address] | Paroxysmal atrial | | | | [phone] | [phone] | tachycardia (HCC); | | | | [...] schedule for a Holter monitor and to [facility] to come to discuss results. Since [...] She is getting ready to go to [place] to be evaluated in [place] for a stomach/a bdominal surgery. Cardiac-garcia she [...] takes this da rigoberto Respiratory Therapy Supplies [facility] [...] Need: Lifetime. Please send orde r to [facility]. This is not a [...] primarily from [facility]: LIPID No results found for: [...] records from [facility] for office visit on 09/05/2015 [...] She is in a class II of [employer] functional class. There is [...] this chart may have been created with [employer] voice recognition software. Occasi onal wrong-word or [...] [place] | | | | | | [address] | | | | | | | | +--------+---------+ + + + | 11/24/ | Office | Cardiology | [place], | | | 2019 | Visit | | SINDHU Erickson [address] | | | | | | [place], | | | | | | [place] [address] | | | | | | [phone] | | | | | | | | +--------+---------+ + + + documented as of this encounter Visit Diagnoses + + | Diagnosis | + + | Chest pain, unspecified type - Primary | + + | Paroxysmal atrial tachycardia (HCC) Paroxysmal supraventricular tachycardia | + + | Palpitations | + + documented in this encounter
--- OUTSIDE RECORDS SUMMARY | ~2019-01-15 | XMS | Encounter Summary ---
Demographics + + + | Address | [address] | | | [place] [address] | + + + | Home Phone [...] Providers + +------+ + | Care Personal Banking Representative Name | Role | Phone | [...] [address] | | | | | [place], | [place], | | | | | [place] [address] | [place] [address] | | | | | [phone] | [phone] | | | | | | | [...] | | | | | | [place] [address] | | | | | | [phone] | | | | | | | | +--------+---------+ + + + documented as of this encounter Visit Diagnoses Not on filedocumented in this encounter"
--- OUTSIDE RECORDS SUMMARY | ~2019-01-15 | XMS | Encounter Summary ---
Demographics + + + | Address | [address] | | | [place] [address] | + + + | Home Phone [...] Team Providers + +------+ + | Care Sound Controller Name | Role | Phone | [...] + + | 05/23/ | Emergency | [facility] | [place], | COPD with acute | | 2013 | | MED CTR EM[facility]Y | Ozzy Kim MD [address] | exacerbation (HCC) | | | | [place] [address] | [place] [facility] | (Primary Dx); COPD | | | | [place], [place] | [place] [address] | exacerbation (HCC) | | | | [address] | [phone] | | | | | [phone] | | | +--------+ + + + [...] [place] | | | | | | [address] | | | | | | | | +--------+---------+ + + + | 11/24/ | Office | Cardiology | [place], | | | 2019 | Visit | | SINDHU Erickson [address] | | | | | | [place], | | | | | | [place] [address] | | | | | | [phone] | | | | | | | [...] + | MISCELLANEOUS LAB | | | [phone] | + +---------+ + + | MISCELANIOUS LAB | | | [phone] | + +---------+ + + documented in [...] | | | | Nebulization, RT Once, [place] | | | | | | | [...] | | | | | Intravenous, ONCE, rAelis 05/23/13 at | | | | | | | 2014, For 1 dose, Mix with 2 mL | | | | | | | provided diluent to make 62.5 | | | | | | | mg/mL., | | | | | | + +-------+ +--------+---+---+ +---+---+ | | | +---+---+ documented in this encounter
--- OUTSIDE RECORDS SUMMARY | ~2019-01-15 | XMS | Encounter Summary ---
Demographics + + + | Address | [address] | | | [place] [address] | + + + | Home Phone [...] Team Providers + +------+ + | Care Claims Technician Name | Role | Phone | [...] Provider Unknown | | | | | [place], [place] | [phone] | | | | | [address] | | | | | | [phone] | | | +--------+ + + + [...] [facility] | | | | | | [address] | | | | | | | | +--------+---------+ + + + | 11/24/ | Office | Cardiology | [place], | | | 2019 | Visit | | SINDHU Erickson [address] | | | | | | [place], | | | | | | [place] [address] | | | | | | [phone] | | | | | | | [...]
--- OUTSIDE RECORDS SUMMARY | ~2019-01-15 | XMS | Encounter Summary ---
Demographics + + + | Address | [address] | | | [place] [address] | + + + | Home Phone [...] Providers + +------+ + | Care Medicare Contact Specialist Name | Role | Phone | + +------+ + | Ozzy Delcid MD | PCP | | + +------+ + Encounter Details +--------+ + + + + | Date | Type | Department | Care Team | Description | +--------+ + + + + | 10/14/ | Hospital | [facility] | [place], | | | 2011 | Encounter | MED CTR SLEEP | Loreta Alonso MD | | | | | CENTER [address] | | | | | | [place] | | | | | | [address] | | | | | | [phone] | | | +--------+ + + + [...] [place] | | | | | | [address] | | | | | | | | +--------+---------+ + + + | 11/24/ | Office | Cardiology | [place], | | | 2019 | Visit | | SINDHU Erickson [address] | | | | | | [place], | | | | | | [place] [address] | | | | | | [phone] | | | | | | | | +--------+---------+ + + + documented as of this encounter Visit Diagnoses Not on filedocumented in this encounter"
--- OUTSIDE RECORDS SUMMARY | ~2019-01-15 | XMS | Encounter Summary ---
Demographics + + + | Address | [address] | | | [place] [address] | + + + | Home Phone [...] Providers + +------+ + | Care Roll Contour Grinder Name | Role | Phone | [...] | apnea (adult) | | | | [place], | | (pediatric) (Primary | | | | [place] [address] | | Dx) | | | | [phone] | | | +--------+ + + + [...] [place] | | | | | | [address] | | | | | | | | +--------+---------+ + + + | 11/24/ | Office | Cardiology | [place], | | | 2019 | Visit | | SINDHU Erickson [address] | | | | | | [place], | | | | | | [place] [address] | | | | | | [phone] | | | | | | | | +--------+---------+ + + + documented as of this encounter Visit Diagnoses + + | Diagnosis | + + | Obstructive sleep apnea (adult) (pediatric) - Primary | + + documented in this encounter"
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
--- OUTSIDE RECORDS SUMMARY | ~2019-01-15 | XMS | Encounter Summary ---
Demographics + + + | Address | [address] | | | [place] [address] | + + + | Home Phone [...] Team Providers + +------+ + | Care Wallet Assembler Name | Role | Phone | + +------+ + | Juan Cherry DO | PCP | | + +------+ + Encounter Details +--------+ + + + + | Date | Type | Department | Care Team | Description | +--------+ + + + + | 09/04/ | Orders Only | [facility] [place] | [place], | Paroxysmal atrial | | 2016 | | CARDIOLOGY [address] | Georgina DIRECTOR OF STRATEGIC PROGRAMS [address] | tachycardia (HCC) | | | | [place], | [place], | | | | | [place] [address] | [place] [address] | | | | | [phone] | [phone] | | | | | | | [...] [place] | | | | | | [address] | | | | | | | | +--------+---------+ + + + | 11/24/ | Office | Cardiology | [place], | | | 2019 | Visit | | SINDHU Erickson [address] | | | | | | [place], | | | | | | [place] [address] | | | | | | [phone] | | | | | | | | +--------+---------+ + + + documented as of this encounter Visit Diagnoses + + | Diagnosis | + + | Paroxysmal atrial tachycardia (HCC) Paroxysmal supraventricular tachycardia | + + documented in this encounter"
--- OUTSIDE RECORDS SUMMARY | ~2019-01-15 | XMS | Encounter Summary ---
Demographics + + + | Address | [address] | | | [place] [address] | + + + | Home Phone [...] + +------+ + | Care Vice President Of Advertising Name | Role | Phone | + +------+ + PCP | Unavailable | + +------+ + Encounter Details +--------+ + + + + | Date | Type | Department | Care Team | Description | +--------+ + + + + | 09/23/ | Hospital | [facility] | Nestor Martinez, | | | 2010 | Encounter | MED CTR EMERGENCY | [address] | | | | | CENTER [address] | [place], [place] | | | | | [place] | [address] | | | | | [address] | | | | | | [phone] | | | +--------+ + + + [...] [place] | | | | | | [address] | | | | | | | | +--------+---------+ + + + | 11/24/ | Office | Cardiology | [place], | | | 2019 | Visit | | SINDHU Erickson [address] | | | | | | [place], | | | | | | [place] [address] | | | | | | [phone] | | | | | | | [...] [address] | [place] | [phone] | | [facility] | | [address] | | | - LABORATORY | | | | + + + + + | [address] | [address] | [place] | | | [facility] | | [address] | | | - LABORATORY | | [...] [address] | [place] | [phone] | | [facility] | | [address] | | | - LABORATORY | | | | + + + + + | [facility] | [address] [facility] | [place] | | | [facility] | | [address] | | | - LABORATORY | | | | + + + + + CT Abdomen Pelvis w Contrast (09/23/2010 11:33 AM PDT) + + | Specimen | + + | | + + + + + | Narrative | Performed At | + + + | [facility]. [facility] Diagnostic Imaging Department | [place] | | [address] [facility], [place] | [facility] | | ABDOMEN AND PELVIS [...] Transcribed | | | Date/Time: 09/24/2010 13:01 Sales Service Supervisor: PEREZ | | | <Electronically Signed by Elías Cardoso MD> 09/24/10 1939 | | + + + + + | Procedure Note | + + | Reed, Rad Conversion - 04/02/2013 3:30 PM [facility] | | Diagnostic Imaging Department [address] [facility] | | ABDOMEN AND PELVIS CT WITH [...] 09:10 | |Transcribed Date/Time: 09/24/2010 13:01 | |Sales Service Supervisor: | |<Electronically Signed by Elías Cardoso MD> 09/24/101938 | + + + +---------+ + + | Performing | Address | City/State/Zipcode | Phone Number | | Organization | | | | + +---------+ + + | [place] | | | | | [facility] | | | | + +---------+ + + documented in this encounter Visit Diagnoses Not on filedocumented in this encounter"
--- OUTSIDE RECORDS SUMMARY | ~2019-01-15 | XMS | Encounter Summary ---
Demographics + + + | Address | [address] | | | [place] [address] | + + + | Home Phone [...] Providers + +------+ + | Care Senior Oracle Database Administrator Name | Role | Phone [...] | sleep apnea) | | | | [place], | | | | | | [place] [address] | | | | | | [phone] | | | +--------+ + + + [...] [place] | | | | | | [address] | | | | | | | | +--------+---------+ + + + | 11/24/ | Office | Cardiology | [place], | | | 2020 | Visit | | SINDHU Erickson [address] | | | | | | [place], | | | | | | [place] [address] | | | | | | [phone] | | | | | | | | +--------+---------+ + + + documented as of this encounter Visit Diagnoses + + | Diagnosis | + + | GARRY (obstructive sleep apnea) Obstructive sleep apnea (adult) (pediatric) | + + documented in this encounter"
--- OUTSIDE RECORDS SUMMARY | ~2019-01-15 | XMS | Encounter Summary ---
Demographics + + + | Address | [address] | | | [place] [address] | + + + | Home Phone [...] Team Providers + +------+ + | Care Pillow Agent Name | Role | Phone | [...] + + | 10/16/ | Office | [facility] | [place], | Tachycardia (Primary | | 2017 | Visit | CARDIOLOGY [address] | SINDHU Erickson [address] | Dx); Paroxysmal | | | | [place], | [place], | atrial tachycardia | | | | [place] [address] | [place] [address] | (HCC) | | | | [phone] | [phone] | | | | | | | [...] takes this da rigoberto Respiratory Therapy Supplies [facility] Please provide patient with necessary CPAP supplies ( she did not specify, okay to send order as appropriate) Diagnosis Code(s)327.23 . Length of Need 99 months. Please send order to [facility]. 1 each 0 Respiratory Therapy Supplies [facility] Change CPAP back [...] longer present Confirmed by RAFA WELLS MD ([id number]) on 08/06/2015 9:42:29 AM LAB RESULTS reviewed during visit today primarily from [facility]: LIPID Lab Results Component Value Date [...] She was seen at the ED of [facility] 3 weeks ago and again 1 week [...] and v entricular function done at the [facility]. LVEF 78%. C. Holter Monitor 08/16/13 Underlying [...] this chart may have been created with [employer] voice recognition software. Occasi onal wrong-word [...] [place] | | | | | | [address] | | | | | | | | +--------+---------+ + + + | 11/24/ | Office | Cardiology | [place], | | | 2019 | Visit | | SINDHU Erickson [address] | | | | | | [place], | | | | | | [place] [address] | | | | | | [phone] | | | | | | | [...] Juan | | | DO CAMILLE Cherry MONEY POSITION OFFICER: Clay Mcdonough MD | | | 48-HOUR [...] | | Signed by: Clay Mcdonough MD [facility] 10/18/2016, | | | 10:51 [...] CLAY | | | | | | ([id number]) on 10/16/2016 | | | | | [...]
--- OUTSIDE RECORDS SUMMARY | ~2019-01-15 | XMS | Encounter Summary ---
Demographics + + + | Address | [address] | | | [place] [address] | + + + | Home Phone [...] Team Providers + +------+ + | Care Vision Care Associate Name | Role | Phone | [...] + + | 02/02/ | Off-Site | [facility] | Jared Mcdonough, | Paroxysmal atrial | | 2015 | Visit | CARDIOLOGY [address] | MD [address] [place] | tachycardia (HCC) | | | | [place], | [place], | (Primary Dx); | | | | [place] [address] | [place] [address] | Syncope, unspecified | | | | [phone] | [phone] | syncope type; | | | | | | Palpitations | | | | | Ashlee Allison ARNP | | | | | | [address] | | | | | | [place] | | | | | | [phone] | | | | | | | [...] She takes this daily Respiratory Therapy Supplies [facility] Please provide patient with [...] She was seen at the ED of 3 weeks ago and again 1 week [...] and ventricular function don e at the . LVEF 78%. C. Holter Monitor 08/16/13 Underlying [...] concerns. Electronically signed by: Jared Mcdonough MD [facility] 02/02/2015 Portions of this chart may have been created with [employer] voice recognition software. Occasi onal wrong-word or [...] | | | | | | [place] [address] | | | | | | [phone] | | | | | | | | +--------+---------+ + + + documented as of this encounter Visit Diagnoses + + | Diagnosis | + + | Paroxysmal atrial tachycardia (HCC) - Primary Paroxysmal supraventricular tachycardia | + + | Syncope, unspecified syncope type | + + | Palpitations | + + documented in this encounter
--- OUTSIDE RECORDS SUMMARY | ~2019-01-15 | XMS | Encounter Summary ---
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 [address] | | | Required | | with brief | [address] | [place] | | | | | loss of | [address] | [place], [place] | | | | | consciousnes | [place], | [address] | | | | | s Word | [place] [address] | Phone: | | | | | finding | Phone: | [phone] | | | | | difficulty | [phone] | Fax: | | | | | [id number] | Fax: | [phone] | | | | | (ICD-10-CM) | [phone] | | | | | | - [...] MED CTR SPEECH | MD [address] | brief (less than one | | | | THERAPY [address] | [place], [place] | hour) loss of | | | | [place], | [address] | consciousness | | | | [place] [address] | | (Primary Dx); | | | | [phone] | Kathi Soto, | Impaired memory; | [...] | | [facility]. | | | | | [...] | 0 | 10/13/19 | | | [id number] | mouth as needed. | | | 16 | 7 | | -Cod [id number] MG | | | | | | [...] Speech Pathologist - 08/15/2016 8:51 AM PDT [facility] SPEECH THERAPY [address] [facility] [address] Speech Therapy Progress Assessment Date: 08/14/2016 Patient Information Patient Name: Rosario Malik Date of : 1965 Age: 51 y.o. History Encounter Diagnoses Code Name Primary? S06.0X9A Concussion with brief (less than one hour) loss of consciousness Yes R41.3 Impaired memory R47.89 Word finding difficulty Date of Onset: 03/15/2016 Referring Provider: Aaron Rodriguez MD Rehab Precautions Flowsheet Row Office Visit from 05/01/2016 in [facility] THERAPY PT OP Rehab Precautions Precautions None Rehab Learning Style Flowsheet Row WSM ASSISTANT DIRECTOR OF RESIDENCE LIFE OP EVAL from 05/16/2016 in [facility] SPEECH THERAPY O ffice Visit from 05/01/2016 in [facility] [...] Patient Caregiver's Ability to Manage Condition: 2 ASSISTANT DIRECTOR OF RESIDENCE LIFE G-Codes Functional Assessment Tool Used: NOMS Functional [...] From: 08/16/2016 Certification To: 11/16/2016 Treatment Plan/Interventions [address] - Cognitive [id number] - Cognitive [id number] - Speech/Hearing Treatment Patient and/or family has [...] [place] | | | | | | [address] | | | | | | | | +--------+---------+ + + + | 11/24/ | Office | Cardiology | [place], | | | 2019 | Visit | | SINDHU Erickson [address] | | | | | | [place], | | | | | | [place] [address] | | | | | | [phone] | | | | | | | [...]
--- OUTSIDE RECORDS SUMMARY | ~2019-01-15 | XMS | Encounter Summary ---
Demographics + + + | Address | [address] | | | [place] [address] | + + + | Home Phone [...] Team Providers + +------+ + | Care Comfort Filler Name | Role | Phone | + +------+ + | Juan Cherry DO | PCP | | + +------+ + Encounter Details +--------+ + + + + | Date | Type | Department | Care Team | Description | +--------+ + + + + | 10/19/ | Hospital | [facility] | Kevin Sandoval, | COPD (chronic | | 2013 | Encounter | MED CTR PULMONARY | MD [address] | obstructive | | | | FUNCTION [address] | [place], [place] | pulmonary disease) | | | | [place], | [address] | (HCC) | | | | [place] [address] | | | | | | [phone] | | | +--------+ + + + [...] tab | | | | | | ([facility]) | every 3 days | | | [...] 2019 | Visit | | [address] | | | | | | [place] | | | | | | [address] | | | | | | | | +--------+---------+ + + + | 11/24/ | Office | Cardiology | [place], | | | 2019 | Visit | | SINDHU Erickson [address] | | | | | | [place] | | | | | | [place] [address] | | | | | | [phone] | | | | | | | [...]
--- OUTSIDE RECORDS SUMMARY | ~2019-01-15 | XMS | Encounter Summary ---
Demographics + + + | Address | [address] | | | [place] [address] | + + + | Home Phone [...] Team Providers + +------+ + | Care County Program Technician Name | Role | Phone | [...] + + | 07/29/ | Office | [facility] UROLOGY | Andriy Weber | [place] | | 2018 | Visit | [address] | MD [address] | cystitis (chronic) | | | | [place], [place] | [facility] | without hematuria | | | | [address] | [place] [address] | | | | | [phone] | [phone] | | | | | | | [...] past medical history of Adrenal insufficiency ([facility]); Anxiety; Asthma; 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 Length of Need 99 months. Please send order to [facility]. 1 each 0 Respiratory Therapy Supplies [facility] [...] source of her bleeding recently. She will bean picker Keflex for prophylaxis today. DIAGNOSTIC DATA: [...] This document was generated in part using Content Synd[employer]: [employer] voice recognition software. Although ever y effort is made to edit the content, dye maker errors may occur. Occasional wrong word [...] [place] | | | | | | [address] | | | | | | | | +--------+---------+ + + + | 11/24/ | Office | Cardiology | [place], | | | 2019 | Visit | | SINDHU Erickson [address] | | | | | | [place], | | | | | | [place] [address] | | | | | | [phone] | | | | | | | [...]
--- OUTSIDE RECORDS SUMMARY | ~2019-01-15 | XMS | Encounter Summary ---
Demographics + + + | Address | [address] | | | [place] [address] | + + + | Home Phone [...] Providers + +------+ + | Care Director Safety Council Name | Role | Phone | + [...] | Pulmonary | MD Mukul | [address] [place] | | | | | nodule | [address] | [place], | | | | | Procedures | [address] | [place] [address] | | | | | CT Chest wo | [address] | Phone: | | | | | Contrast | [place] | [phone] | | | | | | [address] | Fax: | | | | | | Phone: | [phone] | | | | | | [phone] | | | | | | | Fax: | | | | | | | [phone] | | +--------+--------+ + + + + [...] | Pulmonary | MD Mukul | [address] [place] | | | | | nodule | [address] | [place], | | | | | Procedures | [address] | [place] [address] | | | | | CT Chest wo | [address] | Phone: | | | | | Contrast | [employer], [place] | [phone] | | | | | | [address] | Fax: | | | | | | Phone: | [phone] | | | | | | [phone] | | | | | | | Fax: | | | | | | | [phone] | | +--------+--------+ + + + + Encounter Details +--------+ + + + + | Date | Type | Department | Care Team | Description | +--------+ + + + + | 08/05/ | Hospital | [facility] | Mukul Clark MD | Pulmonary nodule | | 2018 | Encounter | MED CTR CT [address] | [address] | | | | | [place], | [address] [place], [place] | | | | | [place] [address] | [address] | | | | | [phone] | | | +--------+ + + + [...] | | | | | | [place] [address] | | | | | | [phone] | | | | | | | [...]
--- OUTSIDE RECORDS SUMMARY | ~2019-01-15 | XMS | Encounter Summary ---
Demographics + + + | Address | [address] | | | [place] [address] | + + + | Home Phone [...] Team Providers + +------+ + | Care Inspector Final Assembly Mechanical Name | Role | Phone | + [...] | 05/27/ | Telephone | [facility] | Weber, Andriy | Other | | 2018 | | [address] | [address] | | | | | [place] | [facility] | | | | | [address] | [place] [address] | | | | | [phone] | [phone] | | | | | | | [...] [place] | | | | | | [address] | | | | | | | | +--------+---------+ + + + | 11/24/ | Office | Cardiology | [place], | | | 2019 | Visit | | SINDHU Erickson [address] | | | | | | [place] | | | | | | [place] [address] | | | | | | [phone] | | | | | | | | +--------+---------+ + + + documented as of this encounter Visit Diagnoses Not on filedocumented in this encounter"
--- OUTSIDE RECORDS SUMMARY | ~2019-01-15 | XMS | Encounter Summary ---
Demographics + + + | Address | [address] | | | [place] [address] | + + + | Home Phone [...] Team Providers + +------+ + | Care Plain Goods Hemmer Name | Role | Phone | + [...] | with brief | [address] | [place] | | | | n | loss of | [address] | [place], | | | | | consciousnes | [place], | [place] [address] | | | | | s | [place] [address] | Phone: | | | | | Post-concuss | Phone: | [phone] | | | | | ion vertigo | [phone] | Fax: | | | | | S06.0X9A | Fax: | [phone] | | | | | (ICD-10-CM) | [phone] | | | | | | - [...] + + | 05/27/ | Office | [facility] | Aaron Rodriguez, | Dizziness (Primary | | 2017 | Visit | MED CTR THERAPY PT | MD [address] | Dx); Impaired | | | | OP [address] | [place] | mobility and | | | | [place] | [id number] | activities of daily | | | | [address] | | living; Concussion | | | | [phone] | Lakeshia Cleary, PT | with brief (less | | | | | [address] | than one hour) loss | | | | | [place] | of consciousness; | | | | | [address] | Intractable acute | | | | [...] be different from t he original. [facility] CTR THERAPY PT OP [address] [place] [address] Physical Therapy Daily Treatment Note Date: 05/27/2016 [...] | | | | [place], [place] | | | | | | [address] | | | | | | | | +--------+---------+ + + + | 11/24/ | Office | Cardiology | Flores, | | | 2019 | Visit | | SINDHU Erickson W | | | | | | [place], | | | | | | [place] [address] | | | | | | [phone] | | | | | | | [...]
--- OUTSIDE RECORDS SUMMARY | ~2019-01-15 | XMS | Encounter Summary ---
Demographics + + + | Address | [address] | | | [place] [address] | + + + | Home Phone [...] Team Providers + +------+ + | Care Extrusion Machine Operator Name | Role | Phone [...] + + | 12/28/ | Office | [facility] [place] | Offenstein, | COPD exacerbation | | 2012 | Visit | PULMONARY [address] | Loreta Alonso MD | ([facility]) (Primary Dx); | | | | [address] [place], | | GARRY (obstructive | | | | [place] [address] | | sleep apnea); | | | | [phone] | | Central sleep apnea | +--------+---------+ [...] MD Ayaka Rasheed Pulmonary and Critical Care [facility] [address] [place], [address] HPI Rosario Malik is a 47 y.o. female patient of Juan Cherry here today for follow up of COPD. She notes that she moved back from [place] in November at some point. She had a difficult t francy while in [place], requiring hospitalization 2 times at [facility], once in September an d October. She returned, and developed symptoms of an exacerbation, and called in. We referred her to urgent care, and she went to emergency room. She was hypoxemic despite nebulizers, and so wa s admitted. She was in the hospital for two nights. Before she left for [place], she was on Advair and Combivent. She then added Ventolin/Prov entil. She then started Spiriva at her most recent hospitalization. Curently, she is on Spir aravind, Advair, Combivent, ProAir, and albuterol nebulizers. She was given levofloxacin at discharge, but it apparently reacts with her Geodon, so was n ot filled by [facility]. She is having issues getting the albuterol [...] cancer Colonoscopy 03/2010 Colonoscopy: [address] 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 Please se nd order to [facility]. This is not [...] type: ResMedS9 auto CPAP Home Health Company: [employer] CPAP Pressure: 11-14 cmH2O Median Titrated Pressure: [...] made to ensure accuracy; however, inadvertent computerized dog warden errors may be pre sent. documented in [...] | | | | | | [place] [address] | | | | | | [phone] | | | | | | | [...]
--- OUTSIDE RECORDS SUMMARY | ~2019-01-15 | XMS | Encounter Summary ---
Demographics + + + | Address | [address] | | | [place] [address] | + + + | Home Phone [...] Team Providers + +------+ + | Care Stove Fitter Name | Role | Phone | + +------+ + | Ozzy Delcid MD | PCP | | + +------+ + Encounter Details +--------+ + + + + | Date | Type | Department | Care Team | Description | +--------+ + + + + | 03/29/ | Hospital | [facility] | | | | 2011 | Encounter | MED CTR LABORATORY | | | | | | [address] | | | | | | [place] | | | | | | [address] | | | | | | [phone] | | | +--------+ + + + [...] [address] R Snow [facility] [place] | | | | | | [address] | | | | | | | | +--------+---------+ + + + | 11/24/ | Office | Cardiology | Flores, | | | 2019 | Visit | | SINDHU Erickson [address] | | | | | | [place], | | | | | | [place] [address] | | | | | | [phone] | | | | | | | [...] | | SATURATION | | | [facility] | | [...] + | [facility] | [address] | [place], [place] | [phone] | | [facility] | | [address] | | | - LABORATORY | | | | + + + + + | [facility] | [address] | [place], [place] | | | [facility] | | [address] | | | - LABORATORY | | [...] [place] | | | | | | [address] CLIA: [id number] | | | | | | | | | | + + + + + + + + | Specimen | + + | | + + + + + + + | Performing | Address | City/State/Zipcode | Phone Number | | Organization | | | | + + + + + | [facility] | [address] | [place], [place] | [phone] | | [facility] | | [address] | | | - LABORATORY | | | | + + + + + | [facility] | [address] | [place], [place] | | | [facility] | | [address] | | | - LABORATORY | | [...] | performed on the | uIU/mL | [facility] | | | | Blake De Access [...] + | [facility] | [address] | [place] | [phone] | | [facility] | | [address] | | | - LABORATORY | | | | + + + + + | [facility] | [address] | [place] | | | [facility] | | [address] | | | - LABORATORY | | [...] + | [facility] | [address] | [place] | [phone] | | [facility] | | [address] | | | - LABORATORY | | | | + + + + + | [facility] | [address] | [place], [place] | | | [facility] | | [address] | | | - LABORATORY | | [...] + | [facility] | [address] | [place] | [phone] | | [facility] | | [address] | | | - LABORATORY | | | | + + + + + | [facility] | [address] | [place] | | | [facility] | | [address] | | | - LABORATORY | | | | + + + + + documented in this encounter Visit Diagnoses Not on filedocumented in this encounter"
--- OUTSIDE RECORDS SUMMARY | ~2019-01-15 | XMS | Encounter Summary ---
Demographics + + + | Address | [address] | | | [place] [address] | + + + | Home Phone [...] Team Providers + +------+ + | Care Vendor Representatives Name | Role | Phone | + +------+ + | Juan Cherry DO | PCP | | + +------+ + Encounter Details +--------+ + + + + | Date | Type | Department | Care Team | Description | +--------+ + + + + | 04/02/ | Hospital | [facility] | Dio Yun | | | 2017 | Encounter | MED CTR NUCLEAR | MD Jesus [address] | | | | | MEDICINE [address] | ROSEMARY OLMEDO [address] | | | | | [place], | [place], [place] | | | | | [place] [address] | [address] | | | | | [phone] | [phone] | | | | | | | [...] | | send order to [facility] | | | | | [...] | 0 | 10/13/19 | | | Kyazojlhku-ALQY-Mxjy | mouth as needed. | | | 16 | 7 | | -Cod [id number] MG | | | | | | [...] | | | | | | [place] [address] | | | | | | [phone] | | | | | | | [...] + + | Performing | Address | City/State/[facility] | Phone Number | | Organization | | | | + +---------+ + + | [facility] | | | | + +---------+ + + documented in this encounter Visit Diagnoses Not on filedocumented in this encounter
--- OUTSIDE RECORDS SUMMARY | ~2019-01-15 | XMS | Encounter Summary ---
Demographics + + + | Address | [address] | | | [place] [address] | + + + | Home Phone [...] Providers + +------+ + | Care Spa Receptionist Name | Role | Phone | [...] + | 07/24/ | Telephone | [facility] | Andriy Weber | Hematuria; Bladder | | 2017 | | [address] | MD [address] | Pain | | | | [place], [place] | THOM [facility] | | | | | [address] | [place] [address] | | | | | [phone] | [phone] | | | | | | | [...] | | | | | | [place] [address] | | | | | | [phone] | | | | | | | | +--------+---------+ + + + documented as of this encounter Visit Diagnoses Not on filedocumented in this encounter"
--- OUTSIDE RECORDS SUMMARY | ~2019-01-15 | XMS | Encounter Summary ---
Demographics + + + | Address | [address] | | | [place] [address] | + + + | Home Phone [...] Providers + +------+ + | Care Account Information Clerk Name | Role | Phone [...] | | | | [facility] | [address] | [address] | | | | | EXERCISE | [place], | [place] | | | | | | [place] [address] | [place], [place] | | | | | | Phone: | [address] | | | | | | [phone] | Phone: | | | | | | Fax: | [phone] | | | | | | [phone] | Fax: | | | | | | | [phone] | +--------+--------+ + + + + Encounter Details +--------+---------+ + + + | Date | Type | Department | Care Team | Description | +--------+---------+ + + + | 07/02/ | Office | [facility] | Jared Mcdonough, | Chronic obstructive | | 2017 | Visit | MED CTR CARDIAC | MD Migdalia King | pulmonary disease, | | | | REHABILITATION [address] [place], | unspecified COPD | | | | [address] [place] | [place] [address] | type (HCC) (Primary | | | | [place] [address] | [phone] | Dx); Mild persistent | | | | [phone] | | asthma without | | | [...] [place] | | | | | | [address] | | | | | | | | +--------+---------+ + + + | 11/24/ | Office | Cardiology | Flores, | | | 2019 | Visit | | SINDHU Erickson [address] | | | | | | [place], | | | | | | [place] [address] | | | | | | [phone] | | | | | | | | +--------+---------+ + + + documented as of this encounter Visit Diagnoses + + | Diagnosis | + + | Chronic obstructive pulmonary disease, unspecified COPD type (HCC) - Primary | + + | Mild persistent asthma without complication Unspecified asthma | + + documented in this encounter"
--- OUTSIDE RECORDS SUMMARY | ~2019-01-15 | XMS | Encounter Summary ---
Demographics + + + | Address | [address] | | | [place] [address] | + + + | Home Phone [...] Team Providers + +------+ + | Care Chips Screen Tender Name | Role | Phone | [...] | Pulmonary | MD Mukul | [address] | | | | | emphysema, | [address] | [place], | | | | | unspecified | [address] | [place] [address] | | | | | emphysema | [place] | Phone: | | | | | type (HCC) | [place], [place] | [phone] | | | | | Procedures | [address] | Fax: | | | | | CT Chest wo | Phone: | [phone] | | | | | Contrast | [phone] | | | | | | | Fax: | | | | | | | [phone] | | +--------+--------+ + + + + [...] | Pulmonary | MD Mukul | [address] | | | | | emphysema, | [address] | [place], | | | | | unspecified | [address] | [place] [address] | | | | | emphysema | [place] | Phone: | | | | | type (HCC) | [place], [place] | [phone] | | | | | Procedures | [address] | Fax: | | | | | CT Chest wo | Phone: | [phone] | | | | | Contrast | [phone] | | | | | | | Fax: | | | | | | | [phone] | | +--------+--------+ + + + + Encounter Details +--------+ + + + + | Date | Type | Department | Care Team | Description | +--------+ + + + + | 03/05/ | Hospital | [facility] | Mukul Clark MD | Pulmonary emphysema, | | 2017 | Encounter | MED CTR CT [address] | [address] | unspecified | | | | [address] [place], | [place], [place] | emphysema type (HCC) | | | | [place] [address] | [address] | | | | | [phone] | | | +--------+ + + + [...] | 0 | 10/13/19 | | | Qdqdotgrcw-FBTN-Wyzm | mouth as needed. | | | 16 | 7 | | -Cod [id number] MG | | | | | | [...] | Jose R E [facility] [place] | | | | | | [address] | | | | | | | | +--------+---------+ + + + | 11/24/ | Office | Cardiology | Flores, | | | 2019 | Visit | | SINDHU Erickson [address] | | | | | | [place], | | | | | | [place] [address] | | | | | | [phone] | | | | | | | [...] emphysema, unspecified emphysema type (HCC). COMPARISON: | [facility] | | 11/16/2013, 02/09/2010. PROTOCOL: Axial images [...] + | [facility] | [address] | [place] | [phone] | | [facility] | | [address] | | | - IMAGING | | | | + + + + + documented in this encounter Visit Diagnoses + + | Diagnosis | + + | Pulmonary emphysema, unspecified emphysema type (HCC) | + + documented in this encounter
--- OUTSIDE RECORDS SUMMARY | ~2019-01-15 | XMS | Encounter Summary ---
Demographics + + + | Address | [address] | | | [place] [address] | + + + | Home Phone [...] Team Providers + +------+ + | Care Protective Signal Installer Name | Role | Phone | [...] | Concussion | Aaron Kim MD | Chimney Builder [address] | | | Required | | with brief | [address] | [place] | | | | | loss of | [address] | [place], [place] | | | | | consciousnes | [place], | [address] | | | | | s Word | [place] [address] | Phone: | | | | | finding | Phone: | [phone] | | | | | difficulty | [phone] | Fax: | | | | | S06.0X9A | Fax: | [phone] | | | | | (ICD-10-CM) | [phone] | | | | | | - [...] + + | 06/06/ | Hospital | [facility] | Aaron Rodriguez, | Concussion with | | 2017 | Encounter | MED CTR SPEECH | MD [address] | brief (less than one | | | | THERAPY [address] | [place] | hour) loss of | | | | [place], | [address] | consciousness | | | | [place] [address] | | (Primary Dx) | | | | [phone] | Kathi Soto, | | | | [...] | 0 | 10/13/19 | | | Rfnrverone-NUCD-Fyrn | mouth as needed. | | | 16 | 7 | | -Cod [id number] MG | | | | | | [...] Speech Pathologist - 06/06/2016 5:52 PM PDT [facility]ERAPY [address] [facility] [address] Speech Therapy Daily Treatment Note Date: 06/06/2016 Patient Information Patient Name: Rosario Malik Date of : 1965 Age: 51 y.o. Encounter Diagnoses Code Name Primary? S06.0X9A Concussion with brief (less than one hour) loss of consciousness Yes Date of Onset: 03/15/2016 Referring Provider: Aaron Rodriguez MD Rehab Precautions Office Visit from 05/01/2016 in [facility] THERAPY PT OP Rehab Precautions Precautions None Rehab Learning Style [facility] INTERTYPE OPERATOR OP EVAL from 05/16/2016 in [facility] SPEECH THERAPY Office V isit from 05/01/2016 in [facility] [...] and story recall. Electronically signed by: Kathi oSto SPEECH PATHO, 06/06/2016 18:01 Patient Name: Rosario [...] | | | | [place] | | | | | | [address] | | | | | | | | +--------+---------+ + + + | 11/24/ | Office | Cardiology | Flores, | | | 2020 | Visit | | SINDHU Erickson [address] | | | | | | [place], | | | | | | [place] [address] | | | | | | [phone] | | | | | | | [...]
--- OUTSIDE RECORDS SUMMARY | ~2019-01-15 | XMS | Encounter Summary ---
Demographics + + + | Address | [address] | | | [place] [address] | + + + | Home Phone [...] POPLAR | | | | | [place], | [place] | | | | | [place] [address] | [address] | | | | | [phone] | | | +--------+--------+ + + + [...] [place] | | | | | | [id number] | | | | | | | | +--------+---------+ + + + | 11/24/ | Office | Cardiology | Flores, | | | 2019 | Visit | | SINDHU Erickson [address] | | | | | | [place] | | | | | | [place] [address] | | | | | | [phone] | | | | | | | | +--------+---------+ + + + documented as of this encounter Visit Diagnoses Not on filedocumented in this encounter"
--- OUTSIDE RECORDS SUMMARY | ~2019-01-15 | XMS | Encounter Summary ---
Demographics + + + | Address | [address] | | | [place] [address] | + + + | Home Phone [...] Team Providers + +------+ + | Care Exerciser Name | Role | Phone | + [...] | Concussion | Aaron Kim MD | Microstrategy Reports Developer [address] | | | Required | | with brief | [address] | [place] | | | | | loss of | [address] | [place], [place] | | | | | consciousnes | [place], | [address] | | | | | s Word | [place] [address] | Phone: | | | | | finding | Phone: | [phone] | | | | | difficulty | [phone] | Fax: | | | | | S06.0X9A | Fax: | [phone] | | | | | (ICD-10-CM) | [phone] | | | | | | - [...] + + | 07/18/ | Hospital | [facility] | Aaron Rodriguez, | Canceled (Illness) | | 2017 | Encounter | MED CTR SPEECH | [address] | | | | | THERAPY [address] | [place] | | | | | [place], | [address] | | | | | [place] [address] | | | | | | [phone] | Cesia Su | | | | | | M, Speech | | | | | | Pathologist [address] | | | | | [address] [place] | | | | | | [place] [address] | | | | | | [phone] | | | | | | | [...] Speech Pathologist - 07/18/2016 9[facility]41 [facility] [address] [place] [address] Cancellation/No Show Date: 07/18/2016 Patient Information Patient [...] [place] | | | | | | [id number] | | | | | | | | +--------+---------+ + + + | 11/24/ | Office | Cardiology | Flores, | | | 2019 | Visit | | SINDHU Erickson [address] | | | | | | [place], | | | | | | [place] [address] | | | | | | [phone] | | | | | | | | +--------+---------+ + + + documented as of this encounter Visit Diagnoses Not on filedocumented in this encounter"
--- OUTSIDE RECORDS SUMMARY | ~2019-01-15 | XMS | Encounter Summary ---
Demographics + + + | Address | [address] | | | [place] [address] | + + + | Home Phone [...] Providers + +------+ + | Care Train Control Technician Name | Role | Phone | + +------+ + | Ozzy Delcid MD | PCP | | + +------+ + Encounter Details +--------+ + + + + | Date | Type | Department | Care Team | Description | +--------+ + + + + | 09/16/ | Hospital | [facility] | Yecenia Gallegos | | | 2011 | Encounter | MED CTR EMERGENCY | Yinka Aguirre MD [address] | | | | | CENTER [address] | [facility] | | | | | [place] | [place] [address] | | | | | [address] | [phone] | | | | | [phone] | | | +--------+ + + + [...] | | | | | | [place] [address] | | | | | | [phone] | | | | | | | [...] + | [facility] | [address] | [place], [place] | [phone] | | [facility] | | [address] | | | - LABORATORY | | | | + + + + + | [facility] | [address] | [place], [place] | | | [facility] | | [address] | | | - LABORATORY | | | | + + + + + documented in this encounter Visit Diagnoses Not on filedocumented in this encounter"
--- OUTSIDE RECORDS SUMMARY | ~2019-01-15 | XMS | Encounter Summary ---
Demographics + + + | Address | [address] | | | [place] [address] | + + + | Home Phone [...] Providers + +------+ + | Care Development Trainer Name | Role | Phone | [...] | MD Jared | [address] | | | | | Procedures | [address] | [place], | | | | | ECHO | [address] | [place] | | | | | Complete | [place], | [address] | | | | | | [place] [address] | Phone: | | | | | | Phone: | [phone] | | | | | | [phone] | Fax: | | | | | | Fax: | [phone] | | | | | | [phone] | | +--------+--------+ + + + + [...] | unspecified | [place] | [address] | | | | | HIGH PULSE | [place], [place] | [place], | | | | | - [address]ND DX | [address] | [place] [address] | | | | | Procedures | Phone: | Phone: | | | | | [place] OFFICE | [phone] | [phone] | | | | | OUTPATIENT | Fax: | Fax: | | | | | VISIT 25 | [phone] | [phone] | | | | | MINUTES | [...] [address] | MD [address] | Dx) | | | | [address] [place], | [place], | | | | | [place] [address] | [place] [address] | | | | | [phone] | [phone] | | | | | | | [...] tachycardia. 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 [...] sleep apnea COPD (chronic obstructive pulmonary disease) ([facility]) Healthcare maintenance Preventative health care GARRY (obstructive sleep apnea) Multiple personality disorder GERD (gastroesophageal reflux disease) Diverticulosis Insomnia Sprain of chest wall Benign neoplasm of pituitary gland and craniopharyngeal duct (pouch) ([facility]) Status post total hysterectomy Irritable colon Hypoxemia ([facility]) Allergic rhinitis Tachycardia MEDICAL, SURGICAL, AND PERSONAL HISTORY Past Surgical History Procedure Date Hammertoe repair right sided Hiatal hernia repair Hiatal hernia Kirk and bso Ovarian cysts, not cancer Colonoscopy 03/2010 Colonoscopy 1995 [facility] Family History Problem Relation Age [...] 1 Years of Education: 13 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 Respiratory Therapy Supplies [facility] Incentive spirometer. Please provide instructions in use. Dx: 848.8 MADELEINE: 3 months 1 each 99 Respiratory Therapy Supplies [facility] [...] Need: Lifetime. Please send orde r to [facility]. This is not a new [...] PLT 343 07/14/2013 I reviewed records from [facility] for office visit on 08/02/13. ASSESSMENT: [...] a class II of [place] [employer] functiona l class. There is [...] made to ensure accuracy; however, inadvertent computerized coupler errors may be pre sent. Electronically signed by: Jared Mcdonough MD [facility] 08/12/2013 9:31 documented in this [...] [place] | | | | | | [id number] | | | | | | | | +--------+---------+ + + + | 11/24/ | Office | Cardiology | Flores, | | | 2019 | Visit | | SINDHU Erickson [address] | | | | | | [place], | | | | | | [place] [address] | | | | | | [phone] | | | | | | | [...]
--- OUTSIDE RECORDS SUMMARY | ~2019-01-15 | XMS | Encounter Summary ---
Demographics + + + | Address | [address] | | | [place] [address] | + + + | Home Phone [...] Providers + +------+ + | Care Forest Worker Name | Role | Phone | [...] RN | | | | | [place] | | | | | | [place] | | | | | | [address] | | | | | | [phone] | | | +--------+ + + + [...] [place] | | | | | | [address] | | | | | | | | +--------+---------+ + + + | 11/24/ | Office | Cardiology | Flores, | | | 2020 | Visit | | SINDHU Erickson [address] | | | | | | [place], | | | | | | [place] [address] | | | | | | [phone] | | | | | | | | +--------+---------+ + + + documented as of this encounter Visit Diagnoses Not on filedocumented in this encounter"
--- OUTSIDE RECORDS SUMMARY | ~2019-01-15 | XMS | Encounter Summary ---
Demographics + + + | Address | [address] | | | [place] [address] | + + + | Home Phone [...] Team Providers + +------+ + | Care Application Security Engineer Name | Role | Phone | [...] + + | 04/12/ | Office | [facility] | [place], | COPD exacerbation | | 2013 | Visit | PULMONARY [address] | Loreta Alonso MD | ([facility]) (Primary Dx); | | | | [place], | | Sprain of chest | | | | [place] [address] | | wall; GARRY | | | | [phone] | | (obstructive sleep | | | [...] perform them regularly on you r own. [address] [facility], [address] [place] [address], [place] [address]. All rights reserve d. This information is [...] [facility] [address] [place], [address] [facility] Rosario Malik is [...] and machine. She took it in to [facility] today for servicing. 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 3 tablet 0 Respiratory Therapy Supplies [facility] Please provide patient with necessary CPAP supplies ( she did not specify, okay to send order as appropriate) Diagnosis Code(s)327.23 . Length of Need 99 months. Please send order to [facility]. 1 each 0 Respiratory Therapy Supplies [facility] Change [...] exacerbation to exacerbat ion since return from [place] without clear explanation. Factors to consider: medication [...] been using her CPAP as m [facility] as she should per last downloads [...] made to ensure accuracy; however, inadvertent computerized waiter and cashier errors may be pre sent. documented in [...] [place] | | | | | | [id number] | | | | | | | | +--------+---------+ + + + | 11/24/ | Office | Cardiology | [place], | | | 2019 | Visit | | SINDHU Erickson [address] | | | | | | [place], | | | | | | [place] [address] | | | | | | [phone] | | | | | | | [...] + + | Performing | Address | City/[facility] | Phone Number | | Organization | | | | + + + + + | [facility] | [address] | [place] | [phone] | | [facility] | | [address] | | | - LABORATORY | | | | + + + + + | [facility] | [address] | [place] | | | [facility] | | [address] | | | - LABORATORY | | [...]
--- OUTSIDE RECORDS SUMMARY | ~2019-01-15 | XMS | Encounter Summary ---
Demographics + + + | Address | [address] | | | [place] [address] | + + + | Home Phone [...] Providers + +------+ + | Care Transfer Coordinator Name | Role | Phone | + +------+ + PCP | Unavailable | + +------+ + Encounter Details +--------+ + + + + | Date | Type | Department | Care Team | Description | +--------+ + + + + | 02/27/ | Hospital | [facility] | Ozzy Delcid, | | | 2010 | Encounter | MED CTR XRAY [address] | MD [address] | | | | | [place] | [place], [place] | | | | | [place] [address] | [address] | | | | | [phone] | | | +--------+ + + + [...] [place] | | | | | | [address] | | | | | | | | +--------+---------+ + + + | 11/24/ | Office | Cardiology | Flores, | | | 2019 | Visit | | SINDHU Erickson [address] | | | | | | [place], | | | | | | [place] [address] | | | | | | [phone] | | | | | | | | +--------+---------+ + + + documented as of this encounter Visit Diagnoses Not on filedocumented in this encounter"
--- OUTSIDE RECORDS SUMMARY | ~2019-01-15 | XMS | Encounter Summary ---
Demographics + + + | Address | [address] | | | [place] [address] | + + + | Home Phone [...] Providers + +------+ + | Care Tool Specialist Name | Role | Phone | [...] | | | | | | level ([facility]) | [place] | | | | | | Procedures | [place], [place] | | | | | | MRI Brain w | [address] | | | | | | wo Contrast | Phone: | | | | | | | [phone] | | | | | | | Fax: | | | | | | | [phone] | | +--------+--------+ + + + + [...] | | | MRI Brain w | [address] | | | | | | wo Contrast | Phone: | | | | | | | [phone] | | | | | | | Fax: | | | | | | | [phone] | | +--------+--------+ + + + + Encounter Details +--------+ + + + + | Date | Type | Department | Care Team | Description | +--------+ + + + + | 08/09/ | Hospital | [facility] | Daya Decker, | Aleksandr prolactin | | 2016 | Encounter | MED CTR MRI [address] | MD [address] | level ([facility]) | | | | [place], | [place] | | | | | [place] [address] | [address] | | | | | [phone] | [phone] | | | | | | | [...] [place] | | | | | | [address] | | | | | | | | +--------+---------+ + + + | 11/24/ | Office | Cardiology | [place], | | | 2019 | Visit | | [facility] Ericks[address] | | | | | | [place], | | | | | | [place] [id number] | | | | | | [phone] | | | | | | | [...] mL/min/1.73m2 | [facility] | | | [place] | | | MEDICAL | | | [...] [address] | [place] | [phone] | | [facility] | | [address] | | | - LABORATORY | | [...] and signal | | characteristics. No abnormal Q1kjamlucpdhefsb, contrast enhancement, susceptibility | | change, or [...] | PRN, Other, Starting [facility] 08/10/15 | | AM PDT | | | | | at 0949, For 1 dose, MRI | | | | | | + +--------+ +--------+------+------+ +---+---+ | | | +---+---+ documented in this encounter"
--- OUTSIDE RECORDS SUMMARY | ~2019-01-15 | XMS | Encounter Summary ---
Demographics + + + | Address | [address] | | | [place] [address] | + + + | Home Phone [...] Team Providers + +------+ + | Care Cardiac Cath Lab Radiology Technologist Name | Role | Phone | [...] MD | symptoms) | | | | [place], | | | | | | [place] [address] | | | | | | [phone] | | | +--------+ + + + [...] | | | | | | [place] [id number] | | | | | | [phone] | | | | | | | | +--------+---------+ + + + documented as of this encounter Visit Diagnoses Not on filedocumented in this encounter"
--- OUTSIDE RECORDS SUMMARY | ~2019-01-15 | XMS | Encounter Summary ---
Demographics + + + | Address | [address] | | | [place] [address] | + + + | Home Phone [...] Team Providers + +------+ + | Care Drill Press Operator Numerical Control Name | Role | Phone | + [...] + + | 08/03/ | Emergency | [facility] | Alverto Tyler, | Dehydration (Primary | | 2016 | | MED CTR EMERGENCY | [address] [address] | Dx); Acute | | | | CENTER [address] | [place], [place] | hypokalemia; Urinary | | | | [place], [place] | [id number] | tract infection | | | | [address] | | without hematuria, | | | | [phone] | | site unspecified | +--------+ + [...] [place] | | | | | | [address]52 | | | | | | | | +--------+---------+ + + + | 11/24/ | Office | Cardiology | [place], | | | 2019 | Visit | | SINDHU Erickson [address] | | | | | | [place], | | | | | | [place] [address] | | | | | | [phone] | | | | | | | [...] [address] | [place] | [phone] | | [facility] | | [address] | | | - LABORATORY | | [...] - 1.030 | [facility] | | | [place] | | | [facility] | | [...] [address] | [place] | [phone] | | [facility] | | [address] | | | - LABORATORY | | [...] not | 39 (L)Comment: | >=60 | [place] | | | | GLOMERULAR FILTRATION | mL/min/1.73m2 | [facility] | | | [facility] | RATE,ESTIMATED | | MEDICAL | | | | mL/min/1.33a2Ptch than | | CENTER - | | [...] + | [facility] | [address] | [place] | [phone] | | [facility] | | [address] | | | - LABORATORY | | [...] [address] | [place] | [phone] | | [facility] | | [address] | | | - LABORATORY | | [...] [address] | [place] | [phone] | | [facility] | | [address] | | | - LABORATORY | | [...] | | | | RAFA WELLS MD ([id number]) | | | | | | on [...]
--- OUTSIDE RECORDS SUMMARY | ~2019-01-15 | XMS | Encounter Summary ---
Demographics + + + | Address | [address] | | | [place] [address] | + + + | Home Phone [...] Team Providers + +------+ + | Care Stripe Marker Name | Role | Phone | [...] Provider Unknown | | | | | [place], [place] | [phone] | | | | | [address] | | | | | | [phone] | | | +--------+ + + + [...] | | | [facility]. | | | | | [...] | | | | Jose R Snow [facility] | | | | | | [address] | | | | | | | | +--------+---------+ + + + | 11/24/ | Office | Cardiology | [place], | | | 2019 | Visit | | SINDHU Erickson [address] | | | | | | [place], | | | | | | [place] [address] | | | | | | [phone] | | | | | | | [...]
--- OUTSIDE RECORDS SUMMARY | ~2019-01-15 | XMS | Encounter Summary ---
Demographics + + + | Address | [address] | | | [place] [address] | + + + | Home Phone [...] Providers + +------+ + | Care Plant Cytologist Name | Role | Phone | + [...] | 02/22/ | Off-Site | [facility] | [place], | Tachyarrhythmia | | 2013 | Visit | CARDIOLOGY [address] | SINDHU Erickson [address] | (Primary Dx); | | | | [facility] [place], | [facility] [place], | Palpitations; Other | | | | [place] [address] | [place] [address] | chest pain | | | | [phone] | [phone] | | | | | | | [...] other kind of bleeding. Fever over 101.0F. 6490-0043 [employer]. [address] [place] [address], [place] [address]. All righ ts reserved. This information is [...] each 99 Respiratory Therapy Supplies [facility] Please provide patient with necessary CPAP supplies ( she did not specify, okay to send order as appropriate) Diagnosis Code(s)327.23 . Length of Need 99 months. Please send order to [facility]. 1 each 0 Respiratory Therapy Supplies [facility] Change CPAP back to 11-14 cm H2O. All necessary suppl ies. No oxygen bleed in. Diagnosis Code(s)327.23. Length of Need: Lifetime. Please send orde r to [facility]. This is not a new [...] She is in a class II-III of [place] [employer] Associ ation functional class. There is [...] and ventricular function don e at the [facility]. LVEF [...] this chart may have been created with GPN[employer] voice recognition software. Occasi onal wrong-word or [...] | | | | | | [place] [address] | | | | | | [phone] | | | | | | | [...] Rosario Malik, (1965) MEDICAL RECORD NUMBER: | [facility] | | [id number] DATE OF PROCEDURE: 02/28/2014 DRIVER UTILITY WORKER: | - IMAGING | | Jared Mcdonough [...] | Procedure Note | + + | Jaerd Mcdonough MD - 02/28/2014 9:33 AM PST Formatting of this note might be | | different from the original.CARDIAC CATHETERIZATION and CORONARY ANGIOGRAPHYPATIENT | | NAME/: Rosario Malik, (1965) OF | | PROCEDURE: 02/28/2014PRIMARY BUTTON FACING MACHINE OPERATOR: Jared Mcdonough MD PROCEDURES | | PERFORMED:Coronary [...] [address] | [place] | [phone] | | [facility] | | [address] | | | - IMAGING | | | | + + + + + documented in this encounter Visit Diagnoses + + | Diagnosis | + + | Tachyarrhythmia - Primary Tachycardia, unspecified | + + | Palpitations | + + | Other chest pain | + + documented in this encounter
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
--- OUTSIDE RECORDS SUMMARY | ~2019-01-15 | XMS | Encounter Summary ---
Demographics + + + | Address | [address] | | | [place] [address] | + + + | Home Phone [...] Team Providers + +------+ + | Care Hepatologist Name | Role | Phone | + [...] [place] | call) | | | | [place], | [place] | | | | | [place] [address] | [address] | | | | | [phone] | | | +--------+ + + + [...] [place] | | | | | | [id number] | | | | | | | | +--------+---------+ + + + | 11/24/ | Office | Cardiology | Flores, | | | 2019 | Visit | | SINDHU Erickson [address] | | | | | | [place] | | | | | | [place] [address] | | | | | | [phone] | | | | | | | | +--------+---------+ + + + documented as of this encounter Visit Diagnoses Not on filedocumented in this encounter"
--- OUTSIDE RECORDS SUMMARY | ~2019-01-15 | XMS | Encounter Summary ---
Demographics + + + | Address | [address] | | | [place] [address] | + + + | Home Phone [...] Team Providers + +------+ + | Care Finisher Hot Strip Name | Role | Phone | + [...] + + | 11/06/ | Clinical | [facility] | Andriy Weber | Interstitial | | 2016 | Support | [address] | MD [address] | cystitis (Primary | | | | [place] | [place] | Dx) | | | | [address] | [place] [address] | | | | | [phone] | [phone] | | | | | | | [...] Action Dose Route Administered By 11/07/2015 Given 32628 Units Subcutaneous Nancy Dalal CMA lidocaine 2% [...] | | | [place], [place] | | | | | | [address] | | | | | | | | +--------+---------+ + + + | 11/24/ | Office | Cardiology | [place], | | | 2019 | Visit | | SINDHU Erickson [address] | | | | | | [place], | | | | | | [place] [address] | | | | | | [phone] | | | | | | | [...] 1.001 - 1.030 | | | | [place], | | | | | | [facility], [...]
--- OUTSIDE RECORDS SUMMARY | ~2019-01-15 | XMS | Encounter Summary ---
Demographics + + + | Address | [address] | | | [place] [address] | + + + | Home Phone [...] Team Providers + +------+ + | Care Bundle Cutter Name | Role | Phone | [...] + + | 05/23/ | Emergency | [facility] | Heriberto, | COPD with acute | | 2013 | | MED CTR EMERGENCY | Ozzy Kim MD [address] | exacerbation (HCC) | | | | [place] [address] | [place] [facility] | (Primary Dx); COPD | | | | [place], [place] | [place] [address] | exacerbation (HCC) | | | | [address] | [phone] | | | | | [phone] | | | +--------+ + + + [...] | | | | | order to [facility]. | | | | | + [...] [place] | | | | | | [address] | | | | | | | | +--------+---------+ + + + | 11/24/ | Office | Cardiology | Flores, | | | 2019 | Visit | | SINDHU Erickson [address] | | | | | | [place], | | | | | | [place] [address] | | | | | | [phone] | | | | | | | [...] + | MISCELLANEOUS LAB | | | [phone] | + +---------+ + + | MISCELANIOUS LAB | | | [phone] | + +---------+ + + documented in [...] | | | | Nebulization, RT Once, [place] | | | | | | | [...]
--- OUTSIDE RECORDS SUMMARY | ~2019-01-15 | XMS | Encounter Summary ---
Demographics + + + | Address | [address] | | | [place] [address] | + + + | Home Phone [...] Providers + +------+ + | Care Gas Regulator Repairer Name | Role | Phone | [...] | | | | unspecified | | [address] | | | | | laterality | | Phone: | | | | | Primary | | [phone] | | | | | localized | | Fax: | | | | | osteoarthros | | [phone] | | | | | is of [...] | | | | | [address] | [address] [place] | | | | | [place], [place] | [place] [address] | | | | | [address] | [phone] | | | | | [phone] | | | +--------+ + + + [...] +----+---+ + + | | 1 | [place] | | | | 4 | 43-degrees [...] [address] | | eral | Forearm; pgpy-oxm-reriwm catheter | Teresa Yuan, | Daniela Caro [...] R [facility] [place] | | | | | | [address] | | | | | | | | +--------+---------+ + + + | 11/24/ | Office | Cardiology | Flores, | | | 2019 | Visit | | SINDHU Erickson [address] | | | | | | [place], | | | | | | [place] [address] | | | | | | [phone] | | | | | | | [...] | | | | | | Starting [facility] 06/18/18 at 1448, For | | [...] mcg/kg/m | mL/hr | | | Starting [facility] 06/18/18 at 1455, | | PM [...]
--- OUTSIDE RECORDS SUMMARY | ~2019-01-15 | XMS | Encounter Summary ---
Demographics + + + | Address | [address] | | | [place] [address] | + + + | Home Phone [...] Team Providers + +------+ + | Care Pin Drafter Operator Name | Role | Phone | [...] [address] | | | | | [place], | [place], | | | | | [place] [address] | [place] [address] | | | | | [phone] | [phone] | | | | | | | [...] | | | | | | [place] [address] | | | | | | [phone] | | | | | | | | +--------+---------+ + + + documented as of this encounter Visit Diagnoses Not on filedocumented in this encounter"
--- OUTSIDE RECORDS SUMMARY | ~2019-01-15 | XMS | Encounter Summary ---
Demographics + + + | Address | [address] | | | [place] [address] | + + + | Home Phone [...] Team Providers + +------+ + | Care Expeller Worker Name | Role | Phone | + +------+ + | Juan Cherry DO | PCP | | + +------+ + Encounter Details +--------+ + + + + | Date | Type | Department | Care Team | Description | +--------+ + + + + | 08/20/ | Abstract | [facility] | Jared Mcdonough, | | | 2013 | | CARDIOLOGY [address] | MD [address] [place] | | | | | [place], | [place], | | | | | [place] [address] | [place] [address] | | | | | [phone] | [phone] | | | | | | | [...] | | | | | | [place] [address] | | | | | | [phone] | | | | | | | [...] + | [facility] | [address] | [place], [place] | [phone] | | [facility] | | [address] | | | - LABORATORY | | | | + + + + + | [facility] | [address] | [place], [place] | | | [facility] | | [address] | | | - LABORATORY | | [...] [place] | | | [facility] | | [address] | | | - LABORATORY | | [...] | | | LAB | | | [place], | | | | | | External [...]
--- OUTSIDE RECORDS SUMMARY | ~2019-01-15 | XMS | Encounter Summary ---
Demographics + + + | Address | [address] | | | [place] [address] | + + + | Home Phone [...] Providers + +------+ + | Care Hand Outside Cutter Name | Role | Phone [...] | | [place] | [address] | | | | | [address] | [place] [address] | | | | | [phone] | [phone] | | | | | | | [...] [place] | | | | | | [address] | | | | | | | | +--------+---------+ + + + | 11/24/ | Office | Cardiology | Flores, | | | 2019 | Visit | | SINDHU Erickson [address] | | | | | | [place], | | | | | | [place] [address] | | | | | | [phone] | | | | | | | | +--------+---------+ + + + documented as of this encounter Visit Diagnoses Not on filedocumented in this encounter"
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
--- OUTSIDE RECORDS SUMMARY | ~2019-01-15 | XMS | Encounter Summary ---
Demographics + + + | Address | [address] | | | [place] [address] | + + + | Home Phone [...] Providers + +------+ + | Care Dredge Worker Name | Role | Phone | [...] + + | 05/06/ | Office | [facility] | Flores, | Palpitations | | 2018 | Visit | CARDIOLOGY [address] | SINDHU Erickson [address] | (Primary Dx); Chest | | | | [place], | [place], | pain, unspecified | | | | [place] [address] | [place] [address] | type; Syncope, | | | | [phone] | [phone] | unspecified syncope | | | | [...] 2 times daily. She takes this da [facility] Respiratory Therapy Supplies [facility] Please provide patient with necessary CPAP supplies ( she did not specify, okay to send order as appropriate) Diagnosis Code(s)327.23 . Length of Need 99 months. Please send order to [facility]. 1 each 0 Respiratory Therapy [...] RESULTS reviewed during visit today primarily from [facility]: LIPID Lab Results Component Value [...] at the ED of [facility] 3 weeks ago and again 1 week [...] is in a class I-II o f [place] [employer] functional class. There is [...] function done at the [facility]. LVEF 78%. C. Holter Monitor 08/16/13 Underlying [...] this chart may have been created with [employer] voice recognition software. Occasi onal wrong-word or [...] [place] | | | | | | [address] | | | | | | | | +--------+---------+ + + + | 11/24/ | Office | Cardiology | Flores, | | | 2019 | Visit | | SINDHU Erickson [address] | | | | | | [place] | | | | | | [place] [address] | | | | | | [phone] | | | | | | | [...] CLAY | | | | | | ([id number]) on 05/06/2017 | | | | | [...]
--- OUTSIDE RECORDS SUMMARY | ~2019-01-15 | XMS | Encounter Summary ---
Demographics + + + | Address | [address] | | | [place] [address] | + + + | Home Phone [...] Providers + +------+ + | Care Geospatial Intelligence Analyst Name | Role | Phone | + +------+ + | Juan Cherry DO | PCP | | + +------+ + Encounter Details +--------+---------+ + + + | Date | Type | Department | Care Team | Description | +--------+---------+ + + + | 06/06/ | Office | [facility] | Jared Mcdonough, | Chronic obstructive | | 2017 | Visit | MED CTR CARDIAC | [address] [place] | pulmonary disease, | | | | REHABILITATION [address] | [place], | unspecified COPD | | | | [address] [place] | [place] [address] | type (HCC) (Primary | | | | [place] [address] | [phone] | Dx); Pulmonary | | | | [phone] | | emphysema, | | | | [...] Desean Wheeler - 06/06/2016 3:12 PM PDT [facility] CARDIAC REHABILITATION [address] [facility] [address] Cardiac Rehab Date: 06/06/2016 Patient Information Patient [...] | | | | [place] | | | | | | [address] | | | | | | | | +--------+---------+ + + + | 10/01/ | Office | Cardiology | Flores, | | | 2019 | Visit | | SINDHU Erickson [address] | | | | | | [place], | | | | | | [place] [address] | | | | | | [phone] | | | | | | | | +--------+---------+ + + + documented as of this encounter Visit Diagnoses + + | Diagnosis | + + | Chronic obstructive pulmonary disease, unspecified COPD type (HCC) - Primary | + + | Pulmonary emphysema, unspecified emphysema type (HCC) | + + documented in this encounter"
--- OUTSIDE RECORDS SUMMARY | ~2019-01-15 | XMS | Encounter Summary ---
Demographics + + + | Address | [address] | | | [place] [address] | + + + | Home Phone [...] Providers + +------+ + | Care Nurse Private Duty Name | Role | Phone | + [...] [address] | | | | | [place], | [place], | | | | | [place] [address] | [place] [address] | | | | | [phone] | [phone] | | | | | | | [...] | | | | | | [place] [address] | | | | | | [phone] | | | | | | | | +--------+---------+ + + + documented as of this encounter Visit Diagnoses Not on filedocumented in this encounter"
--- OUTSIDE RECORDS SUMMARY | ~2019-01-15 | XMS | Encounter Summary ---
Demographics + + + | Address | [address] | | | [place] [address] | + + + | Home Phone [...] Providers + +------+ + | Care Casino Floor Runner Name | Role | Phone | [...] + | 12/08/ | Telephone | [facility] | Jared Mcdonough, | Appointment | | 2014 | | CARDIOLOGY [address] | [address] [place] | | | | | [place], | [place], | | | | | [place] [address] | [place] [address] | | | | | [phone] | [phone] | | | | | | | [...] [place] | | | | | | [address] | | | | | | | | +--------+---------+ + + + | 11/24/ | Office | Cardiology | Flores, | | | 2019 | Visit | | SINDHU Erickson [address] | | | | | | [place], | | | | | | [place] [address] | | | | | | [phone] | | | | | | | | +--------+---------+ + + + documented as of this encounter Visit Diagnoses Not on filedocumented in this encounter"
--- OUTSIDE RECORDS SUMMARY | ~2019-01-15 | XMS | Encounter Summary ---
Demographics + + + | Address | [address] | | | [place] [address] | + + + | Home Phone [...] Team Providers + +------+ + | Care Historical Records Administrator Name | Role | Phone | [...] | | [place] | THOM [facility] | | | | | [address] | [place] [address] | | | | | [phone] | [phone] | | | | | | | [...] [place] | | | | | | [address] | | | | | | | | +--------+---------+ + + + | 11/24/ | Office | Cardiology | Flores, | | | 2019 | Visit | | SINDHU Erickson [address] | | | | | | [place], | | | | | | [place] [address] | | | | | | [phone] | | | | | | | | +--------+---------+ + + + documented as of this encounter Visit Diagnoses Not on filedocumented in this encounter"
--- OUTSIDE RECORDS SUMMARY | ~2019-01-15 | XMS | Encounter Summary ---
Demographics + + + | Address | [address] | | | [place] [address] | + + + | Home Phone [...] Team Providers + +------+ + | Care Wrist Closer Name | Role | Phone | + +------+ + | Juan Cherry DO | PCP | | + +------+ + Encounter Details +--------+ + + + + | Date | Type | Department | Care Team | Description | +--------+ + + + + | 09/09/ | Hospital | [facility] | Conversion | Pain | | 2015 | Encounter | CONVERSION [address] | Transaction, | | | | | [address] | Provider Unknown | | | | | [place], [place] | [phone] | | | | | [address] | | | | | | [phone] | | | +--------+ + + + [...] | | | | Jose R Snow [facility] | | | | | | [address] | | | | | | | | +--------+---------+ + + + | 11/24/ | Office | Cardiology | Flores, | | | 2019 | Visit | | SINDHU Erickson [address] | | | | | | [place], | | | | | | [place] [address] | | | | | | [phone] | | | | | | | [...]
--- OUTSIDE RECORDS SUMMARY | ~2019-01-15 | XMS | Encounter Summary ---
Demographics + + + | Address | [address] | | | [place] [address] | + + + | Home Phone [...] Providers + +------+ + | Care Fruit Grading Supervisor Name | Role | Phone | [...] + + | 07/19/ | Telephone | [facility] [place] | Kevin Sandoval, | Other (medication | | 2014 | | PULMONARY [address] | MD [address] | request) | | | | [place], | [place] | | | | | [place] [address] | [address] | | | | | [phone] | | | +--------+ + + + [...] [place] | | | | | | [address] | | | | | | | | +--------+---------+ + + + | 11/24/ | Office | Cardiology | Flores, | | | 2019 | Visit | | SINDHU Erickson [address] | | | | | | [place], | | | | | | [place] [address] | | | | | | [phone] | | | | | | | | +--------+---------+ + + + documented as of this encounter Visit Diagnoses Not on filedocumented in this encounter"
--- OUTSIDE RECORDS SUMMARY | ~2019-01-15 | XMS | Encounter Summary ---
Demographics + + + | Address | [address] | | | [place] [address] | + + + | Home Phone [...] + +------+ + | Care Senior Production Manager Name | Role | Phone | + +------+ + | Juan Cherry DO | PCP | | + +------+ + Encounter Details +--------+ + + + + | Date | Type | Department | Care Team | Description | +--------+ + + + + | 09/09/ | Hospital | [facility] | Conversion | Pain | | 2015 | Encounter | CONVERSION [address] | Transaction, | | | | | [address] | Provider Unknown | | | | | [place], [place] | [phone] | | | | | [address] | | | | | | [phone] | | | +--------+ + + + [...] | | Jose R Snow [facility] | | | | | | [address] | | | | | | | | +--------+---------+ + + + | 11/24/ | Office | Cardiology | Flores, | | | 2019 | Visit | | SINDHU Erickson [address] | | | | | | [place], | | | | | | [place] [address] | | | | | | [phone] | | | | | | | [...]
--- OUTSIDE RECORDS SUMMARY | ~2019-01-15 | XMS | Encounter Summary ---
Demographics + + + | Address | [address] | | | [place] [address] | + + + | Home Phone [...] Team Providers + +------+ + | Care Gauntlet Pairer Name | Role | Phone | + [...] | 07/29/ | Telephone | [facility] | Weber, Andriy | Other | | 2018 | | [address] | MD [address] | | | | | [place] | THOM [facility] | | | | | [address] | [place] [address] | | | | | [phone] | [phone] | | | | | | | [...] [place] | | | | | | [address] | | | | | | | | +--------+---------+ + + + | 11/24/ | Office | Cardiology | Flores, | | | 2019 | Visit | | SINDHU Erickson [address] | | | | | | [place] | | | | | | [place] [address] | | | | | | [phone] | | | | | | | | +--------+---------+ + + + documented as of this encounter Visit Diagnoses Not on filedocumented in this encounter"
--- OUTSIDE RECORDS SUMMARY | ~2019-01-15 | XMS | Encounter Summary ---
Demographics + + + | Address | [address] | | | [place] [address] | + + + | Home Phone [...] Team Providers + +------+ + | Care Roofer Vinyl Coating Name | Role | Phone | + +------+ + | Ozzy Delcid MD | PCP | | + +------+ + Encounter Details +--------+ + + + + | Date | Type | Department | Care Team | Description | +--------+ + + + + | 10/14/ | Hospital | [facility] | Off[place], | | | 2011 | Encounter | MED CTR SLEEP | Loreta Alonso MD | | | | | CENTER [address] | | | | | | [place] | | | | | | [address] | | | | | | [phone] | | | +--------+ + + + [...] [place] | | | | | | [address] | | | | | | | | +--------+---------+ + + + | 11/24/ | Office | Cardiology | Flores, | | | 2019 | Visit | | SINDHU Erickson [address] | | | | | | [place], | | | | | | [place] [address] | | | | | | [phone] | | | | | | | | +--------+---------+ + + + documented as of this encounter Visit Diagnoses Not on filedocumented in this encounter"
--- OUTSIDE RECORDS SUMMARY | ~2019-01-15 | XMS | Encounter Summary ---
Demographics + + + | Address | [address] | | | [place] [address] | + + + | Home Phone [...] + +------+ + | Care Food Service Worker Name | Role | Phone [...] [address] | | | | | [place], | [place] | | | | | [place] [address] | [address] | | | | | [phone] | | | +--------+--------+ + + + [...] [place] | | | | | | [address] | | | | | | | | +--------+---------+ + + + | 11/24/ | Office | Cardiology | Flores, | | | 2019 | Visit | | SINDHU Erickson [address] | | | | | | [place], | | | | | | [place] [address] | | | | | | [phone] | | | | | | | | +--------+---------+ + + + documented as of this encounter Visit Diagnoses Not on filedocumented in this encounter"
--- OUTSIDE RECORDS SUMMARY | ~2019-01-15 | XMS | Encounter Summary ---
Demographics + + + | Address | [address] | | | [place] [address] | + + + | Home Phone [...] +------+ + | Care Vice President Of Sales Name | Role | Phone | [...] | | | | CENTER [address] | | carried out because | | | | [place] | | of patient's | | | | [address] | | decision (Primary | | | | [phone] | | Dx) | +--------+ + + [...] | | | | | order to [facility]. | | | | | [...] [place] | | | | | | [id number] | | | | | | | | +--------+---------+ + + + | 11/24/ | Office | Cardiology | Flores, | | | 2019 | Visit | | SINDHU Erickson [address] | | | | | | [place] | | | | | | [place] [address] | | | | | | [phone] | | | | | | | | +--------+---------+ + + + documented as of this encounter Visit Diagnoses + + | Diagnosis | + + | Surgical or other procedure not carried out because of patient's decision - Primary | + + documented in this encounter"
--- OUTSIDE RECORDS SUMMARY | ~2019-01-15 | XMS | Encounter Summary ---
Demographics + + + | Address | [address] | | | [place] [address] | + + + | Home Phone [...] Team Providers + +------+ + | Care Ruby Developer Name | Role | Phone | + +------+ + | Juan Cherry DO | PCP | | + +------+ + Encounter Details +--------+ + + + + | Date | Type | Department | Care Team | Description | +--------+ + + + + | 09/09/ | Hospital | [facility] | Conversion | Pain | | 2015 | Encounter | CONVERSION [address] | Transaction, | | | | | [address] | Provider Unknown | | | | | [place], [place] | [phone] | | | | | [address] | | | | | | [phone] | | | +--------+ + + + [...] | | | | | | [facility]. | | | | [...] Jose R Snow [facility] | | | | | | [address] | | | | | | | | +--------+---------+ + + + | 11/24/ | Office | Cardiology | [place], | | | 2019 | Visit | | SINDHU Erickson [address] | | | | | | [place], | | | | | | [place] [address] | | | | | | [phone] | | | | | | | [...]
--- OUTSIDE RECORDS SUMMARY | ~2019-01-15 | XMS | Encounter Summary ---
Demographics + + + | Address | [address] | | | [place] [address] | + + + | Home Phone [...] Providers + +------+ + | Care Field Training Manager Name | Role | Phone | [...] + | 04/15/ | Refill | [facility] | Rajwinder Monzon, | Medication Refill | | 2013 | | PULMONARY [address] | Cert [place] | ( wanted to know | | | | [place], | | refill history.) | | | | [place] [address] | | | | | | [phone] | | | +--------+--------+ + + + [...] | | | | | | [place] [address] | | | | | | [phone] | | | | | | | | +--------+---------+ + + + documented as of this encounter Visit Diagnoses Not on filedocumented in this encounter"
--- OUTSIDE RECORDS SUMMARY | ~2019-01-15 | XMS | Encounter Summary ---
Demographics + + + | Address | [address] | | | [place] [address] | + + + | Home Phone [...] Team Providers + +------+ + | Care Artist And Repertoire Manager Name | Role | Phone | [...] + | 06/23/ | Office | [facility] | Shashi Segovia | Other migraine | | 2015 | Visit | NEUROLOGY ADRIANA | MD Miryam Need updated | without status | | | | 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 [address] [place] [address]. All righ ts reserved. This information is not intended as a substitute for professional medical care. Always follow your healthcare professional's instructions. documented in this encounter Progress Notes Shashi Segovia MD - 06/23/2014 8:20 AM PDTFormatting of this note might be differen t from the original. Shashi Segovia MD [address] [place] [address], [address] [place] [address] Neurology Outpatient ProgressNote Patient ID: Ms. Malik [...] within her pituitary. She recently saw an sod stripper who noted he r visual acuity changed, [...] an upcoming appointment with endocrin ology at [facility]. Past Medical History: Past Medical History Diagnosis Date Hypothyroidism Diverticulitis past Depression Anxiety GERD (gastroesophageal reflux disease) COPD (chronic obstructive pulmonary disease) ([facility]) 2011 post BD FEV1 2.34, 85% [...] duct (pouch) (HCC) 10/28/2012 Overview: Managed by [facility] [...] Lifetime. Please se nd order to [facility]. This is [...] of 10 mL of Gadavist. Dedicated small efids-ud-idrk thin section imaging through the pituitary region [...] as needed. Discussed my upcoming departure from [place]. If charis valderrama has issues before August [...] | | | | | | [place] [address] | | | | | | [phone] | | | | | | | [...]
--- OUTSIDE RECORDS SUMMARY | ~2019-01-15 | XMS | Encounter Summary ---
Demographics + + + | Address | [address] | | | [place] [address] | + + + | Home Phone [...] Providers + +------+ + | Care Flight Simulator Teacher Name | Role | Phone | + +------+ + PCP | Unavailable | + +------+ + Encounter Details +--------+ + + + + | Date | Type | Department | Care Team | Description | +--------+ + + + + | 07/26/ | Hospital | [facility] | Elda Miranda | | | 2010 | Encounter | MED CTR LABORATORY | MD H[address] | | | | | [address] [place] | [address] [place] | | | | | [place], [place] | [place] [address] | | | | | [address] | [phone] | | | | | [phone] | | | +--------+ + + + [...] [place] | | | | | | [address] | | | | | | | | +--------+---------+ + + + | 11/24/ | Office | Cardiology | Flores, | | | 2019 | Visit | | SINDHU Erickson [address] | | | | | | [place], | | | | | | [place] [address] | | | | | | [phone] | | | | | | | [...] + | [address] | [address] | [place], [place] | [phone] | | [facility] | | [address] | | | - LABORATORY | | | | + + + + + | [address] | [address] | [place], [place] | | | [facility] | | [address] | | | - LABORATORY | | [...] - 1.030 | [facility] | | | [place] | | | [facility] | | [...] ST. | [address] | [place], [place] | [phone] | | [facility] | | [address] | | | - LABORATORY | | | | + + + + + | [address] | [address] | [place] | | | [facility] | | [address] | | | - LABORATORY | | | | + + + + + documented in this encounter Visit Diagnoses Not on filedocumented in this encounter"
--- OUTSIDE RECORDS SUMMARY | ~2019-01-15 | XMS | Encounter Summary ---
Demographics + + + | Address | [address] | | | [place] [address] | + + + | Home Phone [...] Team Providers + +------+ + | Care Port Cdl A Driver Name | Role | Phone | + +------+ + | Juan Cherry DO | PCP | | + +------+ + Encounter Details +--------+ + + + + | Date | Type | Department | Care Team | Description | +--------+ + + + + | 11/12/ | Hospital | [facility] | Andriy Weber | | | 2016 | Encounter | MED CTR XRAY [address] | MD [address] | | | | | [place] | [address]OM [place] | | | | | [place] [address] | [place] [address] | | | | | [phone] | [phone] | | | | | | | [...] | 0 | 10/13/19 | | | [id number]-TZMU-Qjru | mouth as needed. | | | 16 | 7 | | -Cod [id number] MG | | | | | | [...] [place] | | | | | | [address] | | | | | | | | +--------+---------+ + + + | 11/24/ | Office | Cardiology | Flores, | | | 2019 | Visit | | SINDHU Erickson [address] | | | | | | [place], | | | | | | [place] [address] | | | | | | [phone] | | | | | | | [...]
--- OUTSIDE RECORDS SUMMARY | ~2019-01-15 | XMS | Encounter Summary ---
Demographics + + + | Address | [address] | | | [place] [address] | + + + | Home Phone [...] Team Providers + +------+ + | Care Hackler Doll Wigs Name | Role | Phone | + +------+ + PCP | Unavailable | + +------+ + Encounter Details +--------+ + + + + | Date | Type | Department | Care Team | Description | +--------+ + + + + | 12/29/ | [facility] | [facility] | | | | 2008 - | Encounter | MED CTR OP REHAB | | | | | | [address] [place] | | | | 01/23/ | | [place] [address] | | | | 2008 | | [phone] | | | +--------+ + + + [...] [place] | | | | | | [address] | | | | | | | | +--------+---------+ + + + | 11/24/ | Office | Cardiology | Flores, | | | 2020 | Visit | | SINDHU Erickson [address] | | | | | | [place], | | | | | | [place] [address] | | | | | | [phone] | | | | | | | | +--------+---------+ + + + documented as of this encounter Visit Diagnoses Not on filedocumented in this encounter"
--- OUTSIDE RECORDS SUMMARY | ~2019-01-15 | XMS | Encounter Summary ---
Demographics + + + | Address | [address] | | | [place] [address] | + + + | Home Phone [...] Providers + +------+ + | Care Carton Inspector Name | Role | Phone | [...] [address] | | | | | [place], | [place] | | | | | [place] [address] | [address] | | | | | [phone] | | | +--------+--------+ + + + [...] | | | | | | [place] [address] | | | | | | [phone] | | | | | | | | +--------+---------+ + + + documented as of this encounter Visit Diagnoses Not on filedocumented in this encounter"
--- OUTSIDE RECORDS SUMMARY | ~2019-01-15 | XMS | Encounter Summary ---
Demographics + + + | Address | [address] | | | [place] [address] | + + + | Home Phone [...] Team Providers + +------+ + | Care Electroplating Worker Name | Role | Phone | [...] + + | 07/29/ | Office | [facility] | Andriy Weber | Kendra | | 2018 | Visit | [address] | [address] | cystitis (chronic) | | | | [place], [place] | [facility] | without hematuria | | | | [address] | [place] [address] | | | | | [phone] | [phone] | | | | | | | [...] a past medical history of Adrenal insufficiency ([facility]); Anxiety; Asthma; 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 Length of Need 99 months. Please send order to [facility]. 1 each 0 Respiratory Therapy Supplies [facility] Change CPAP back to 11-14 cm H2O. All necessary suppl ies. No oxygen bleed in. Diagnosis Code(s)327.23. Length of Need: Lifetime. Please send orde r to [facility]. This is not a [...] source of her bleeding recently. She will waste picker Keflex for prophylaxis today. DIAGNOSTIC DATA: [...] This document was generated in part using [employer] voice recognition software. Although ever y effort is made to edit the content, beauty therapist errors may occur. Occasional wrong word or [...] [place] | | | | | | [address] | | | | | | | | +--------+---------+ + + + | 11/24/ | Office | Cardiology | Flores, | | | 2019 | Visit | | SINDHU Erickson [address] | | | | | | [place], | | | | | | [place] [address] | | | | | | [phone] | | | | | | | [...]
--- OUTSIDE RECORDS SUMMARY | ~2019-01-15 | XMS | Encounter Summary ---
Demographics + + + | Address | [address] | | | [place] [address] | + + + | Home Phone [...] Providers + +------+ + | Care Rn International Name | Role | Phone | + [...] | | | | | [place] | THOM [facility] | | | | | [address] | [place] [address] | | | | | [phone] | [phone] | | | | | | | [...] [place] | | | | | | [address] | | | | | | | | +--------+---------+ + + + | 11/24/ | Office | Cardiology | [place], | | | 2019 | Visit | | SINDHU Erickson [address] | | | | | | [place], | | | | | | [place] [address] | | | | | | [phone] | | | | | | | | +--------+---------+ + + + documented as of this encounter Visit Diagnoses Not on filedocumented in this encounter"
--- OUTSIDE RECORDS SUMMARY | ~2019-01-15 | XMS | Encounter Summary ---
Demographics + + + | Address | [address] | | | [place] [address] | + + + | Home Phone [...] + +------+ + | Care Director Of Materials Management Name | Role | Phone | [...] | | | | | pulmonary | [address] | [address] | | | | | disease, | [place], | [place] | | | | | unspecified | [place] [address] | [place], [place] | | | | | COPD type | Phone: | [address] | | | | | (HCC) | [phone] | Phone: | | | | | Pulmonary | Fax: | [phone] | | | | | emphysema, | [phone] | Fax: | | | | | unspecified | | [phone] | | | | | emphysema | | | | | | | type ([facility]) | | | +--------+ + + + + + Encounter Details +--------+ + + + + | Date | Type | Department | Care Team | Description | +--------+ + + + + | 04/03/ | Orders Only | [facility] [place] | JamaledgardoJared, | Chronic obstructive | | 2017 | | CARDIOLOGY [address] | [address] [place] | pulmonary disease, | | | | [place], | [place], | unspecified COPD | | | | [place] [address] | [place] [address] | type (HCC) (Primary | | | | [phone] | [phone] | Dx); Pulmonary | | | | [...] [place] | | | | | | [address] | | | | | | | | +--------+---------+ + + + | 11/24/ | Office | Cardiology | [place], | | | 2019 | Visit | | SINDHU Erickson [address] | | | | | | [place], | | | | | | [place] [address] | | | | | | [phone] | | | | | | | [...]
--- OUTSIDE RECORDS SUMMARY | ~2019-01-15 | XMS | Encounter Summary ---
Demographics + + + | Address | [address] | | | [place] [address] | + + + | Home Phone [...] Providers + +------+ + | Care Loom Changeover Operator Name | Role | Phone | [...] + + | 03/01/ | Telephone | [facility] | Jared Mcdonough, | Other (having pain | | 2015 | | CARDIOLOGY [address] | [address] [place] | after heart cath) | | | | [place], | [place], | | | | | [place] [address] | [place] [address] | | | | | [phone] | [phone] | | | | | | | [...] | | | | | | [place] [address] | | | | | | [phone] | | | | | | | | +--------+---------+ + + + documented as of this encounter Visit Diagnoses Not on filedocumented in this encounter"
--- OUTSIDE RECORDS SUMMARY | ~2019-01-15 | XMS | Encounter Summary ---
Demographics + + + | Address | [address] | | | [place] [address] | + + + | Home Phone [...] Team Providers + +------+ + | Care Grade Foreman Name | Role | Phone | [...] + + | 04/16/ | Emergency | [facility] | Sonny Cesar MD | Epigastric pain | | 2016 | | MED CTR EMERGENCY | [address] | (Primary Dx); Chest | | | | CENTER [address] | [place] | pain, unspecified | | | | [place], [place] | [address] | chest pain type | | | | [address] | | | | | | [phone] | | | +--------+ + + + [...] [place] | | | | | | [address] | | | | | | | | +--------+---------+ + + + | 11/24/ | Office | Cardiology | [place], | | | 2020 | Visit | | SINDHU Erickson [address] | | | | | | [place], | | | | | | [place] [address] | | | | | | [phone] | | | | | | | [...] | | | | | | [employer] | | | | | [...] [address] | [place] | [phone] | | [facility] | | [address] | | | - LABORATORY | | [...] + | [facility] | [address] | [place] | [phone] | | [facility] | | [address] | | | - LABORATORY | | [...] mL/min/1.73m2 | Chris BERNA | | | AUSTRIAN | RATE,ESTIMATED | | MEDICAL | | | | mL/min/1.09g6Dyha than | | CENTER - | | [...] [address] | [place] | [phone] | | [facility] | | [address] | | | - LABORATORY | | [...] + | [facility] | [address] | [place] | [phone] | | [facility] | | [address] | | | - LABORATORY | | [...] | | | | RAFA WELLS MD ([id number]) | | | | | | on [...] | | | | | Intravenous, ONCE, Shepherd 04/16/15 at | | PM PST | | | | | 1600, For 1 dose | | | | | | + +-------+ +--------+---+---+ +---+---+ | | | +---+---+ + +-------+ +--------+---+---+ | HYDROmorphone (DILAUDID) | Given | 04/16/19 | 0.5 mg | | | | injection 0.5 mg 0.5 mg, | | 16 4:45 | | | | | Intravenous, ONCE, Shepherd 04/16/15 at | | PM PST | [...]
--- OUTSIDE RECORDS SUMMARY | ~2019-01-15 | XMS | Encounter Summary ---
Demographics + + + | Address | [address] | | | [place] [address] | + + + | Home Phone [...] Providers + +------+ + | Care Nut Sorter Operator Name | Role | Phone | [...] + | 09/12/ | Telephone | [facility] | Jared Mcdonough, | Appointment | | 2014 | | CARDIOLOGY [address] | [address] [place] | | | | | [place], | [place], | | | | | [place] [address] | [place] [address] | | | | | [phone] | [phone] | | | | | | | [...] [place] | | | | | | [address] | | | | | | | | +--------+---------+ + + + | 11/24/ | Office | Cardiology | [place], | | | 2019 | Visit | | SINDHU Erickson [address] | | | | | | [place], | | | | | | [place] [address] | | | | | | [phone] | | | | | | | | +--------+---------+ + + + documented as of this encounter Visit Diagnoses Not on filedocumented in this encounter"
--- OUTSIDE RECORDS SUMMARY | ~2019-01-15 | XMS | Encounter Summary ---
Demographics + + + | Address | [address] | | | [place] [address] | + + + | Home Phone [...] Providers + +------+ + | Care Mail Distribution Scheme Examiner Name | Role | Phone | [...] | | | | CENTER [address] [place] | [address] [place] | carried out due to | | | | [place] | [place] [address] | patient leaving | | | | [address] | [phone] | prior to being seen | | | | [phone] | | by health care | | [...] [place] | | | | | | [address] | | | | | | | | +--------+---------+ + + + | 11/24/ | Office | Cardiology | [place], | | | 2019 | Visit | | SINDHU Erickson [address] | | | | | | [place], | | | | | | [place] [address] | | | | | | [phone] | | | | | | | [...] W?MRN: | | | | | | [id number] | | | [id number] | | | his | | | [...]
--- OUTSIDE RECORDS SUMMARY | ~2019-01-15 | XMS | Encounter Summary ---
Demographics + + + | Address | [address] | | | [place] [address] | + + + | Home Phone [...] sleep | MD [address] | | | | | apnea) | [address] | [place], | | | | | Central | [place], | [place] [address] | | | | | sleep apnea | [place] [address] | Phone: | | | | | | | [phone] | | | | | | | Fax: | | | | | | | [phone] | +--------+ + + + + + [...] | sleep apnea) | | | | [place], | | (Primary Dx); | | | | [place] [address] | | Central sleep apnea; | | | | [phone] | | COPD exacerbation | | | [...] the original. Sleep Follow Up HPI Rosario Mailk is a 47 y.o. female patient of [...] 1 Years of Education: 13 Occupational History [employer] Home Social History Main Topics Smoking status: [...] [place] | | | | | | [address] | | | | | | | | +--------+---------+ + + + | 11/24/ | Office | Cardiology | [place], | | | 2019 | Visit | | SINDHU Erickson [address] | | | | | | [place], | | | | | | [place] [address] | | | | | | [phone] | | | | | | | [...]
--- OUTSIDE RECORDS SUMMARY | ~2019-01-15 | XMS | Encounter Summary ---
Demographics + + + | Address | [address] | | | [place] [address] | + + + | Home Phone [...] Providers + +------+ + | Care Rn Complex Care Name | Role | Phone | + +------+ + PCP | Unavailable | + +------+ + Encounter Details +--------+ + + + + | Date | Type | Department | Care Team | Description | +--------+ + + + + | 12/19/ | [facility] | [facility] | | | | 2009 | Encounter | MED CTR LABORATORY | | | | | | [address] [place] | | | | | | [place] | | | | | | [address] | | | | | | [phone] | | | +--------+ + + + [...] [place] | | | | | | [address] | | | | | | | | +--------+---------+ + + + | 11/24/ | Office | Cardiology | [place], | | | 2020 | Visit | | SINDHU Erickson [address] | | | | | | [place], | | | | | | [place] [address] | | | | | | [phone] | | | | | | | | +--------+---------+ + + + documented as of this encounter Visit Diagnoses Not on filedocumented in this encounter"
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
--- OUTSIDE RECORDS SUMMARY | ~2019-01-15 | XMS | Encounter Summary ---
Demographics + + + | Address | [address] | | | [place] [address] | + + + | Home Phone [...] Providers + +------+ + | Care Professional System Administrator Name | Role | Phone [...] + | 08/01/ | Telephone | [facility] [place] | [place], | Lab Order (due for | | 2015 | | CARDIOLOGY [address] | SINDHU Erickson [address] | fasting labs) | | | | [place], | [place], | | | | | [place] [address] | [place] [address] | | | | | [phone] | [phone] | | | | | | | [...] [place] | | | | | | [id number] | | | | | | | | +--------+---------+ + + + | 11/24/ | Office | Cardiology | [place], | | | 2019 | Visit | | SINDHU Erickson [address] | | | | | | [place], | | | | | | [place] [address] | | | | | | [phone] | | | | | | | [...]
--- OUTSIDE RECORDS SUMMARY | ~2019-01-15 | XMS | Encounter Summary ---
Demographics + + + | Address | [address] | | | [place] [address] | + + + | Home Phone [...] Providers + +------+ + | Care Clinical Nurse Name | Role | Phone | + +------+ + PCP | Unavailable | + +------+ + Encounter Details +--------+ + + + + | Date | Type | Department | Care Team | Description | +--------+ + + + + | 01/12/ | [facility] | [facility] | | | | 2008 | Encounter | MED CTR LABORATORY | | | | | | [address] | | | | | | [place] | | | | | | [address] | | | | | | [phone] | | | +--------+ + + + [...] [place] | | | | | | [address] | | | | | | | | +--------+---------+ + + + | 11/24/ | Office | Cardiology | [place], | | | 2020 | Visit | | SINDHU Erickson [address] | | | | | | [place], | | | | | | [place] [address] | | | | | | [phone] | | | | | | | | +--------+---------+ + + + documented as of this encounter Visit Diagnoses Not on filedocumented in this encounter"
--- OUTSIDE RECORDS SUMMARY | ~2019-01-15 | XMS | Encounter Summary ---
Demographics + + + | Address | [address] | | | [place] [address] | + + + | Home Phone [...] Providers + +------+ + | Care Sales Consultant Residential Manager Name | Role | Phone | + +------+ + PCP | Unavailable | + +------+ + Encounter Details +--------+ + + + + | Date | Type | Department | Care Team | Description | +--------+ + + + + | 01/12/ | [facility] | [facility] | | | | 2008 | Encounter | MED CTR LABORATORY | | | | | | [address] | | | | | | [place] | | | | | | [address] | | | | | | [phone] | | | +--------+ + + + [...] [place] | | | | | | [address] | | | | | | | | +--------+---------+ + + + | 11/24/ | Office | Cardiology | [place], | | | 2020 | Visit | | SINDHU Erickson [address] | | | | | | [place], | | | | | | [place] [address] | | | | | | [phone] | | | | | | | | +--------+---------+ + + + documented as of this encounter Visit Diagnoses Not on filedocumented in this encounter"
--- OUTSIDE RECORDS SUMMARY | ~2019-01-15 | XMS | Encounter Summary ---
Demographics + + + | Address | [address] | | | [place] [address] | + + + | Home Phone [...] Team Providers + +------+ + | Care Talent Acquisition Administrator Name | Role | Phone | + +------+ + | Juan Cherry DO | PCP | | + +------+ + Encounter Details +--------+ + + + + | Date | Type | Department | Care Team | Description | +--------+ + + + + | 11/12/ | Hospital | [facility] | Andriy Weber | | | 2016 | Encounter | MED CTR XRAY [address] | MD [address] | | | | | [place] | [place] | | | | | [place] [address] | [place] [address] | | | | | [phone] | [phone] | | | | | | | [...] | 0 | 10/13/19 | | | Mrlotaufnd-ONVS-Vorz | mouth as needed. | | | 16 | 7 | | -Cod [id number] MG | | | | | | [...] [place] | | | | | | [address] | | | | | | | | +--------+---------+ + + + | 11/24/ | Office | Cardiology | [place], | | | 2019 | Visit | | SINDHU Erickson [address] | | | | | | [place], | | | | | | [place] [address] | | | | | | [phone] | | | | | | | [...]
--- OUTSIDE RECORDS SUMMARY | ~2019-01-15 | XMS | Encounter Summary ---
Demographics + + + | Address | [address] | | | [place] [address] | + + + | Home Phone [...] Team Providers + +------+ + | Care Partner Manager Name | Role | Phone | [...] [address] | obstructive | | | | [place], | [place], [place] | pulmonary disease) | | | | [place] [address] | [address] | (Primary Dx); [place] | | | | [phone] | | (obstructive sleep | | | [...] another prednisone taper. On conversations occurred in [facility] office. The patient was socially [...] [facility]) 10/28/2012 Overview: Managed by [facility] along with hypothyroidism Osteoarthritis hay Past [...] d 99 months. Please send order to [facility] Disp: 1 each, Rfl: 0 Respiratory Therapy Supplies MISC, Change CPAP back to 11-14 cm H2O. All necessary supplies . No oxygen bleed in. Diagnosis Code(s)327.23. Length of Need: Lifetime. [facility] This is not a new order, just [...] | | | | | | [place] [address] | | | | | | [phone] | | | | | | | [...] + | MISCELLANEOUS LAB | | | [phone] | + +---------+ + + | MISCELANIOUS LAB | | | [phone] | + +---------+ + + documented in [...]
--- OUTSIDE RECORDS SUMMARY | ~2019-01-15 | XMS | Encounter Summary ---
Demographics + + + | Address | [address] | | | [place] [address] | + + + | Home Phone [...] Team Providers + +------+ + | Care Cotton Roll Packer Name | Role | Phone | + +------+ + PCP | Unavailable | + +------+ + Encounter Details +--------+ + + + + | Date | Type | Department | Care Team | Description | +--------+ + + + + | 07/26/ | Hospital | [facility] | Elda Miranda | | | 2010 | Encounter | MED CTR LABORATORY | MD [address] | | | | | [address] [place] | [address] [place] | | | | | [place], [place] | [place] [address] | | | | | [address] | [phone] | | | | | [phone] | | | +--------+ + + + [...] [place] | | | | | | [address] | | | | | | | | +--------+---------+ + + + | 11/24/ | Office | Cardiology | [place], | | | 2019 | Visit | | SINDHU Erickson [address] | | | | | | [place], | | | | | | [place] [address] | | | | | | [phone] | | | | | | | [...] + | [facility] | [address] | [place], [place] | [phone] | | [facility] | | [address] | | | - LABORATORY | | | | + + + + + | [address] | [address] | [place], [place] | | | [facility] | | [address] | | | - LABORATORY | | [...] - 1.030 | [facility] | | | [place] | | | [facility] | | [...] ST. | [address] | [place], [place] | [phone] | | [facility] | | [address] | | | - LABORATORY | | | | + + + + + | [facility] | [address] | [place] | | | [facility] | | [address] | | | - LABORATORY | | | | + + + + + documented in this encounter Visit Diagnoses Not on filedocumented in this encounter"
--- OUTSIDE RECORDS SUMMARY | ~2019-01-15 | XMS | Encounter Summary ---
Demographics + + + | Address | [address] | | | [place] [address] | + + + | Home Phone [...] Providers + +------+ + | Care Merchandise Deliverer Name | Role | Phone | + +------+ + | Juan Cherry DO | PCP | | + +------+ + Encounter Details +--------+ + + + + | Date | Type | Department | Care Team | Description | +--------+ + + + + | 11/21/ | Hospital | [facility] | Andriy Weber | Interstitial | | 2016 | Encounter | MED CTR OR INTRA OP | [address] | cystitis (chronic) | | | | [address] | [address] [facility] | without hematuria | | | | [place], [place] | [place] [address] | (Primary Dx) | | | | [address] | [phone] | | | | | [phone] | | | +--------+ + + + [...] (the anesthesiologist will discuss these with you) 1069-3199 [employer]. [address] [place] [address]. All righ ts reserved. This information is [...] | | | | | ([facility]) | | | | | | [...] | 0 | 10/13/19 | | | Mcidaxkprb-KLDP-Crkf | mouth as needed. | | | 16 | 7 | | -Cod [id number] MG | | | | | | [...] | | | | | ([facility]) | | | | | | [...] | | | | [facility] [place] [place] | | | | | | [address] | | | | | | | | +--------+---------+ + + + | 11/24/ | Office | Cardiology | [place], | | | 2019 | Visit | | SINDHU Erickson [address] | | | | | | [place], | | | | | | [place] [address] | | | | | | [phone] | | | | | | | [...] [address] | [place] | [phone] | | [facility] | | [address] | | | - LABORATORY | | [...] mild chronic mucosal | | | inflammation. JVR:[facility]:C2NR GROSS DESCRIPTION: The specimen is | | [...] 0.3 x 0.3 cm, all into (C1). yt:CLR:[facility] | | | MICROSCOPIC EXAMINATION: Histologic sections of all submitted blocks | | | are examined by light microscopy. These findings, together with the | | | gross examination, support the pathologic diagnosis. PERFORMING | | | LABORATORY: Tissue processing and slide preparation were performed by | | | [facility], [address], [place] [address] | | | (Medical Records Clerk: Kale Estrella M.D.; CLIA#: [id number]). | | | Professional interpretation was performed by [facility], | | | [facility], [address] | | | [place] [address] (Medical Records Clerk: Kale Estrella M.D.; CLIA#: | | | [id number]). Diagnostician: Kale Estrella MD Pathologist | | [...] | | | | | | use [employer] 10/325 if ordered. If | | | [...]
--- OUTSIDE RECORDS SUMMARY | ~2019-01-15 | XMS | Encounter Summary ---
Demographics + + + | Address | [address] | | | [place] [address] | + + + | Home Phone [...] Providers + +------+ + | Care Client Account Specialist Name | Role | Phone [...] + | 04/15/ | Refill | [facility] | Rajwinder Monzon, | Medication Refill | | 2013 | | PULMONARY [address] | Cert [place] | ( wanted to know | | | | [place], | | refill history.) | | | | [place] [address] | | | | | | [phone] | | | +--------+--------+ + + + [...] | | | | | | [place] [address] | | | | | | [phone] | | | | | | | | +--------+---------+ + + + documented as of this encounter Visit Diagnoses Not on filedocumented in this encounter"
--- OUTSIDE RECORDS SUMMARY | ~2019-01-15 | XMS | Encounter Summary ---
Demographics + + + | Address | [address] | | | [place] [address] | + + + | Home Phone [...] Providers + +------+ + | Care Electroplating Technician Name | Role | Phone | [...] + | 02/09/ | Telephone | [facility] | Jaime Kevin, | Other | | 2013 | | PULMONARY [address] | MD [address] | | | | | [place], | [place], [place] | | | | | [place] [address] | [address] | | | | | [phone] | | | +--------+ + + + [...] | | | | | | [place] [address] | | | | | | [phone] | | | | | | | | +--------+---------+ + + + documented as of this encounter Visit Diagnoses Not on filedocumented in this encounter"
--- OUTSIDE RECORDS SUMMARY | ~2019-01-15 | XMS | Encounter Summary ---
Demographics + + + | Address | [address] | | | [place] [address] | + + + | Home Phone [...] Providers + +------+ + | Care Train Dispatcher Name | Role | Phone | + +------+ + | Juan Cherry DO | PCP | | + +------+ + Encounter Details +--------+ + + + + | Date | Type | Department | Care Team | Description | +--------+ + + + + | 02/27/ | Hospital | [facility] | Mukul Clark MD | Pulmonary emphysema, | | 2017 | Encounter | MED CTR PULMONARY | [address] | unspecified | | | | FUNCTION [address] | [address] [place] | emphysema type (HCC) | | | | [place], | [address] | | | | | [place] [address] | | | | | | [phone] | | | +--------+ + + + [...] | 0 | 10/13/19 | | | Ayasgzglka-VHMR-Xxhz | mouth as needed. | | | 16 | 7 | | -Cod [id number] MG | | | | | | [...] [place] | | | | | | [id number] | | | | | | | | +--------+---------+ + + + | 11/24/ | Office | Cardiology | [place], | | | 2019 | Visit | | SINDHU Erickson [address] | | | | | | [place] | | | | | | [place] [address] | | | | | | [phone] | | | | | | | [...] | | Romi Sandoval MD 02/29/2016 6:30[facility] | | |IMPRESSION: Spirometry is consistent [...] Sandoval MD 02/29/2016 6:30 | | |[facility] | | + + + [...]
--- OUTSIDE RECORDS SUMMARY | ~2019-01-15 | XMS | Encounter Summary ---
Demographics + + + | Address | [address] | | | [place] [address] | + + + | Home Phone [...] Providers + +------+ + | Care Inorganic Chemical Technician Name | Role | Phone | [...] [address] | | | | | [place], | [place], | | | | | [place] [address] | [place] [address] | | | | | [phone] | [phone] | | | | | | | [...] | | | | [address] [place] [place], [place] | | | | | | [address] | | | | | | | | +--------+---------+ + + + | 11/24/ | Office | Cardiology | [place], | | | 2019 | Visit | | SINDHU Erickson [address] | | | | | | [place], | | | | | | [place] [address] | | | | | | [phone] | | | | | | | [...]
--- OUTSIDE RECORDS SUMMARY | ~2019-01-15 | XMS | Encounter Summary ---
Demographics + + + | Address | [address] | | | [place] [address] | + + + | Home Phone [...] Team Providers + +------+ + | Care Review Trainer Name | Role | Phone | [...] | Concussion | Aaron Kim MD | Parent Partner [address] | | | Required | | with brief | [address] | [place] | | | | | loss of | [address] | [place], [place] | | | | | consciousnes | [place], | [address] | | | | | s Word | [place] [address] | Phone: | | | | | finding | Phone: | [phone] | | | | | difficulty | [phone] | Fax: | | | | | [id number] | Fax: | [phone] | | | | | (ICD-10-CM) | [phone] | | | | | | - [...] | 08/14/ | Hospital | [facility] | Aaron Rodriguez, | Concussion with | | 2017 | Encounter | MED CTR SPEECH | MD [address] | brief (less than one | | | | THERAPY [address] | [place], [place] | hour) loss of | | | | [place], | [address] | consciousness | | | | [place] [address] | | (Primary Dx); | | | | [phone] | Kathi Soto, | Impaired memory; | [...] | 0 | 10/13/19 | | | [facility] | mouth as needed. | | | 16 | 7 | | -Cod [id number] MG | | | | | | [...] Speech Pathologist - 08/15/2016 8:51 AM PDT [facility] [address] [facility] [address] Speech Therapy Progress Assessment Date: 08/14/2016 Patient Information Patient Name: Rosario Malik Date of : 1965 Age: 51 y.o. History Encounter Diagnoses Code Name Primary? S06.0X9A Concussion with brief (less than one hour) loss of consciousness Yes R41.3 Impaired memory R47.89 Word finding difficulty Date of Onset: 03/15/2016 Referring Provider: Aaron Rodriguez MD Rehab Precautions Flowsheet Row Office Visit from 05/01/2016 in [facility] THERAPY PT OP Rehab Precautions Precautions None Rehab Learning Style Flowsheet Row [facility] FACILITIES CLERK OP EVAL from 05/16/2016 in [facility] SPEE[facility]ERAPY O ffice Visit from 05/01/2016 in [facility] THER[facility] PT OP Learning Style Patient's [...] Patient Caregiver's Ability to Manage Condition: 2 FACILITIES CLERK G-Codes Functional Assessment Tool Used: NOMS [...] From: 08/16/2016 Certification To: 11/16/2016 Treatment Plan/Interventions 15849 - Cognitive [id number] - Cognitive Rpxleukd14309 - Speech/Hearing Treatment Patient and/or family has [...] [place] | | | | | | [address] | | | | | | | | +--------+---------+ + + + | 11/24/ | Office | Cardiology | [place], | | | 2019 | Visit | | SINDHU Erickson [address] | | | | | | [place], | | | | | | [place] [address] | | | | | | [phone] | | | | | | | [...]
--- OUTSIDE RECORDS SUMMARY | ~2019-01-15 | XMS | Encounter Summary ---
Demographics + + + | Address | [address] | | | [place] [address] | + + + | Home Phone [...] Providers + +------+ + | Care Counter Tender Name | Role | Phone | + +------+ + PCP | Unavailable | + +------+ + Encounter Details +--------+ + + + + | Date | Type | Department | Care Team | Description | +--------+ + + + + | 11/27/ | Hospital | [facility] | Ozzy Delcid, | | | 2009 - | Encounter | MED CTR OP REHAB | [address] | | | | | [address] [place] | [place] | | | 12/24/ | | [place] [address] | [address] | | | 2009 | | [phone] | | | +--------+ + + + [...] [place] | | | | | | [address] | | | | | | | | +--------+---------+ + + + | 11/24/ | Office | Cardiology | [place], | | | 2019 | Visit | | SINDHU Erickson W | | | | | | [place] | | | | | | [place] [address] | | | | | | [phone] | | | | | | | | +--------+---------+ + + + documented as of this encounter Visit Diagnoses Not on filedocumented in this encounter"
--- OUTSIDE RECORDS SUMMARY | ~2019-01-15 | XMS | Encounter Summary ---
Demographics + + + | Address | [address] | | | [place] [address] | + + + | Home Phone [...] Team Providers + +------+ + | Care Sail Repair Person Name | Role | Phone | [...] sleep | MD [address] | | | | | apnea) | [address] | [place], | | | | | [place] | [place], | [place] [address] | | | | | sleep apnea | [place] [address] | Phone: | | | | | | | [phone] | | | | | | | Fax: | | | | | | | [phone] | +--------+ + + + + + Encounter Details +--------+---------+ + + + | Date | Type | Department | Care Team | Description | +--------+---------+ + + + | 04/07/ | Office | [facility] | Maxim Delgado PA | GARRY on CPAP (Primary | | 2012 | Visit | SLEEP DISORDER [address] | [address] | Dx); Organic | | | | [address] [place] | [place], [place] | insomnia, | | | | [place] [address] | [address] | unspecified | | | | [phone] | | | +--------+---------+ + + + [...] S9 with full face mask obtained from: [facility] pressure is: 8-12 cm 95%: 11.9 [...] She went to get that mask from [facility], but it has been discontinued. The [...] months, sooner prn. Fifteen minutes were spent sokn-fa-vego, wi th the majority of time spent [...] [place] | | | | | | [address] | | | | | | | | +--------+---------+ + + + | 11/24/ | Office | Cardiology | [place], | | | 2019 | Visit | | SINDHU Erickson W | | | | | | [place] | | | | | | [place] [address] | | | | | | [phone] | | | | | | | | +--------+---------+ + + + documented as of this encounter Visit Diagnoses + + | Diagnosis | + + | GARRY on CPAP - Primary Obstructive sleep apnea (adult) (pediatric) | + + | Organic insomnia, unspecified | + + documented in this encounter"
--- OUTSIDE RECORDS SUMMARY | ~2019-01-15 | XMS | Encounter Summary ---
Demographics + + + | Address | [address] | | | [place] [address] | + + + | Home Phone [...] Providers + +------+ + | Care Special Projects Manager Name | Role | Phone | [...] + + | 11/12/ | Office | [facility] | [place], | Chest pain, | | 2018 | Visit | CARDIOLOGY [address] | SINDHU Erickson [address] | unspecified type | | | | [place], | [place], | (Primary Dx); | | | | [place] [address] | [place] [address] | Palpitations; | | | | [phone] | [phone] | Paroxysmal atrial | | | | [...] follow up in 6 to 8 wee nd for office visit, or sooner with concerns. [...] takes this da rigoberto Respiratory Therapy Supplies [facility] Please provide patient with necessary CPAP supplies ( she did not specify, okay to send order as appropriate) Diagnosis Code(s)327.23 . Length of Need 99 months. Please send order to [facility]. 1 each 0 Respiratory Therapy Supplies [facility] Change CPAP back to 11-14 [...] and v entricular function done at the [facility]. LVEF 78%. C. Holter Monitor [...] She is in class II of the [place] [employer] funct ional class. There are [...] She was seen at the ED of [facility] 3 weeks ago and again [...] this chart may have been created with Dopplr voice recognition software. Occasi onal wrong-word or [...] [place] | | | | | | [address] | | | | | | | | +--------+---------+ + + + | 11/24/ | Office | Cardiology | [place], | | | 2019 | Visit | | SINDHU Erickson [address] | | | | | | [place], | | | | | | [place] [address] | | | | | | [phone] | | | | | | | [...] | | | | [place], RAFA ([id number]) | | | | | | on [...]
--- OUTSIDE RECORDS SUMMARY | ~2019-01-15 | XMS | Encounter Summary ---
Demographics + + + | Address | [address] | | | [place] [address] | + + + | Home Phone [...] Providers + +------+ + | Care Group Therapist Name | Role | Phone | + +------+ + | Ozzy Delcid MD | PCP | | + +------+ + Encounter Details +--------+ + + + + | Date | Type | Department | Care Team | Description | +--------+ + + + + | 10/08/ | Hospital | [facility] | [place], | | | 2011 | Encounter | MED CTR LABORATORY | Loreta Alonso MD | | | | | [address] [place] | | | | | | [place] | | | | | | [address] | | | | | | [phone] | | | +--------+ + + + [...] [place] | | | | | | [address] | | | | | | | | +--------+---------+ + + + | 11/24/ | Office | Cardiology | [place], | | | 2019 | Visit | | SINDHU Erickson [address] | | | | | | [place], | | | | | | [place] [address] | | | | | | [phone] | | | | | | | [...] performed on the Blake | uIU/mL | [facility] | | | | [facility] | | MEDICAL | | | [...] | [facility] | [address] | [place], [place] | [phone] | | [facility] | | [address] | | | - LABORATORY | | | | + + + + + | [facility] | [address] | [place], [place] | | | [facility] | | [address] | | | - LABORATORY | | | | + + + + + documented in this encounter Visit Diagnoses Not on filedocumented in this encounter"
--- OUTSIDE RECORDS SUMMARY | ~2019-01-15 | XMS | Encounter Summary ---
Demographics + + + | Address | [address] | | | [place] [address] | + + + | Home Phone [...] Providers + +------+ + | Care Manager Primary Name | Role | Phone | + [...] [address] | | | | | [place], [place] | [facility] | | | | | [address] | [place] [address] | | | | | [phone] | [phone] | | | | | | | [...] [place] | | | | | | [address] | | | | | | | | +--------+---------+ + + + | 11/24/ | Office | Cardiology | [place], | | | 2019 | Visit | | SINDHU Erickson [address] | | | | | | [place], | | | | | | [place] [address] | | | | | | [phone] | | | | | | | | +--------+---------+ + + + documented as of this encounter Visit Diagnoses Not on filedocumented in this encounter"
--- OUTSIDE RECORDS SUMMARY | ~2019-01-15 | XMS | Encounter Summary ---
Demographics + + + | Address | [address] | | | [place] [address] | + + + | Home Phone [...] Team Providers + +------+ + | Care Wax Coating Machine Tender Name | Role | Phone | + +------+ + PCP | Unavailable | + +------+ + Encounter Details +--------+ + + + + | Date | Type | Department | Care Team | Description | +--------+ + + + + | 09/22/ | Hospital | [facility] | Rocky Rodriguez | | | 2008 | Encounter | MED CTR EMERGENCY | MD Kyler [address] | | | | | CENTER [address] | [address] | | | | | [place], [place] | [place] [address] | | | | | [address] | [phone] | | | | | [phone] | | | +--------+ + + + [...] [place] | | | | | | [address] | | | | | | | | +--------+---------+ + + + | 11/24/ | Office | Cardiology | [place], | | | 2019 | Visit | | SINDHU Erickson [address] | | | | | | [place] | | | | | | [place] [address] | | | | | | [phone] | | | | | | | | +--------+---------+ + + + documented as of this encounter Visit Diagnoses Not on filedocumented in this encounter"
--- OUTSIDE RECORDS SUMMARY | ~2019-01-15 | XMS | Encounter Summary ---
Demographics + + + | Address | [address] | | | [place] [address] | + + + | Home Phone [...] Team Providers + +------+ + | Care House Fellow Name | Role | Phone | + +------+ + | Juan Cherry DO | PCP | | + +------+ + Encounter Details +--------+ + + + + | Date | Type | Department | Care Team | Description | +--------+ + + + + | 04/02/ | Hospital | [facility] | Dio Yun | | | 2017 | Encounter | MED CTR NUCLEAR | MD [address] | | | | | MEDICINE [address] | [place] [address] | | | | | [place], | [place], [place] | | | | | [place] [address] | [address] | | | | | [phone] | [phone] | | | | | | | [...] | | | | | | [facility]. | | | | | [...] | 0 | 10/13/19 | | | Yuibqttvvz-DXBU-Cmyc | mouth as needed. | | | 16 | 7 | | -Cod [id number] MG | | | | | | [...] | | | | | | [place] [address] | | | | | | [phone] | | | | | | | [...]
--- OUTSIDE RECORDS SUMMARY | ~2019-01-15 | XMS | Encounter Summary ---
Demographics + + + | Address | [address] | | | [place] [address] | + + + | Home Phone [...] Team Providers + +------+ + | Care Acetylene Operator Name | Role | Phone | + +------+ + | Juan Cherry DO | PCP | | + +------+ + Encounter Details +--------+ + + + + | Date | Type | Department | Care Team | Description | +--------+ + + + + | 09/09/ | Hospital | [facility] IP | Conversion | Pain | | 2015 | Encounter | CONVERSION [address] | Transaction, | | | | | [address] | Provider Unknown | | | | | [place], [place] | [phone] | | | | | [address] | | | | | | [phone] | | | +--------+ + + + [...] | | | | [facility]. | | | | | | | [...] | | [address] [facility] | | | | | | [address] | | | | | | | | +--------+---------+ + + + | 11/24/ | Office | Cardiology | [place], | | | 2019 | Visit | | SINDHU Erickson [address] | | | | | | [place], | | | | | | [place] [address] | | | | | | [phone] | | | | | | | [...]
--- OUTSIDE RECORDS SUMMARY | ~2019-01-15 | XMS | Encounter Summary ---
Demographics + + + | Address | [address] | | | [place] [address] | + + + | Home Phone [...] Team Providers + +------+ + | Care Bike Mechanic Name | Role | Phone | + +------+ + | Juan Cherry DO | PCP | | + +------+ + Encounter Details +--------+ + + + + | Date | Type | Department | Care Team | Description | +--------+ + + + + | 11/05/ | Hospital | [facility] | Shashi Segovia | Pituitary mass (HCC) | | 2013 | Encounter | MED CTR LABORATORY | MD Miryam Need updated | | | | | [address] [place] | address | | | | | [place] | | | | | | [address] | | | | | | [phone] | | | +--------+ + + + [...] [place] | | | | | | [address] | | | | | | | | +--------+---------+ + + + | 11/24/ | Office | Cardiology | [place], | | | 2019 | Visit | | SINDHU Erickson [address] | | | | | | [place], | | | | | | [place] [address] | | | | | | [phone] | | | | | | | [...] [place] | | | | | | [address] | | | | + + + [...] [address] | [place] [address] | [phone] | + + + + + Insulin-Like [...] | | | | | [place] [address] | | | | + + + + + + + + | Specimen | + + | Blood specimen | | (specimen) | + + + + + + + | Performing | Address | City/State/Zipcode | Phone Number | | Organization | | | | + + + + + | [facility] | [address] | [place] [address] | [phone] | + + + + + Prolactin [...] [place] | | | | | | [address] | | | | + + + [...] 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
--- OUTSIDE RECORDS SUMMARY | ~2019-01-15 | XMS | Encounter Summary ---
Demographics + + + | Address | [address] | | | [place] [address] | + + + | Home Phone [...] Providers + +------+ + | Care Worm Farmer Name | Role | Phone | [...] | | | | | | [place] [address] | | | | | | [phone] | | | +--------+ + + + [...] [place] | | | | | | [address] | | | | | | | | +--------+---------+ + + + | 11/24/ | Office | Cardiology | [place], | | | 2019 | Visit | | SINDHU Erickson [address] | | | | | | [place], | | | | | | [place] [address] | | | | | | [phone] | | | | | | | [...]
--- OUTSIDE RECORDS SUMMARY | ~2019-01-15 | XMS | Encounter Summary ---
Demographics + + + | Address | [address] | | | [place] [address] | + + + | Home Phone [...] Team Providers + +------+ + | Care Morphology Teacher Name | Role | Phone | [...] Fall, | | | | [address] [place] | [address] [place] | initial encounter; | | 01/10/ | | [place] [address] | [place] [address] | Generalized | | 2018 | | [phone] | [phone] | weakness; Paroxysmal | | | | | | atrial tachycardia | | | | | Nohemi Gregory MD | ([facility]); Chronic | | | | | [address] | obstructive | | | | | [place], [place] | pulmonary disease, | | | | | [address] | unspecified COPD | | | | | | type ([facility]); | | | | | | [...] Color, UA Straw Clarity, UA Clear Specific [place] 1.028 PH UA 6.0 Glucose, UA Negative [...] aka: [facility] Respiratory Therapy Supplies [facility] Change CPAP back to 11-14 cm H2O. All necessary supplies. No oxygen bleed in. Diagnosis Co de(s)327.23. Length of Need: Lifetime. Please send order to [facility]. This i s not a new order, just a change in settings. Respiratory Therapy Supplies [facility] Please provide patient with necessary CPAP supplies (she did not specify, okay to send ord er as appropriate) Diagnosis Code(s)327.23 . Length of Need 99 months. Please send order to [facility]. roflumilast 500 mcg tablet Take 1 tablet [...] Malik : 1965: Age: 53 y.o. MedRec: [id number] PCP: Yong Cherry DO Admission date: 2018 [...] Anterolateral/lateral leads Confirmed by RAFA WELLS MD ([id number]) on 01/09/2018 6:50:03 AM POC Glucose Collection [...] PH UA 6.0 5.0 - 8.0 Specific [place] 1.028 1.001 - 1.030 PROTEIN UA Negative [...] nodularity. No mediastinal lymphade nopathy, within the xloas-yw-skyr. Stable 7 mm nodule in the right [...] [place] | | | | | | [address] | | | | | | | | +--------+---------+ + + + | 11/24/ | Office | Cardiology | [place], | | | 2019 | Visit | | SINDHU Erickson [address] | | | | | | [place], | | | | | | [place] [address] | | | | | | [phone] | | | | | | | [...] W?MRN: | | | | | | [id number] | | | [id number] | | | his | | | [...] | | | [place] | | | [facility], | | | [place] - | [...] | | | | | | n [place] | | | | | + +---------+ [...] [address] | [place] | [phone] | | [facility] | | [address] | | | - LABORATORY | | [...] + | [address] | [address] | [place] | [phone] | | [facility] | | [address] | | | - LABORATORY | | [...] [address] | [place] | [phone] | | [facility] | | [address] | | | - LABORATORY | | [...] + | [facility] | [address] | [place] | [phone] | | [facility] | | [address] | | | - LABORATORY | | [...] [address] | [place] | [phone] | | [facility] | | [address] | | | - LABORATORY | | [...] [address] | [place] | [phone] | | [facility] | | [address] | | | - LABORATORY | | [...] [address] | [place] | [phone] | | [facility] | | [address] | | | - LABORATORY | | [...] + + | Performed at: 01 - [facility] [address] [place] [address], | REFERENCE LAB | | [place] [id number] Refinery Operator Light Ends Recovery: Naomie Evans, Phone: | ARACELIS - MARCELLE | | [phone] | | + + + + + + + + | Performing | Address | City/State/Zipcode | Phone Number | | Organization | | | | + + + + + | REFERENCE LAB | [address] | [place] [address] | [phone] | | [facility] | Drive [...] | | | | | | [employer] | | | | | [...] [address] | [place] | [phone] | | [facility] | | [address] | | | - LABORATORY | | [...] [address] | [place] | [phone] | | [facility] | | [address] | | | - LABORATORY | | [...] [address] | [place] | [phone] | | [facility] | | [address] | | | - LABORATORY | | [...] (L) | 7 - 18 mg/dL | [facility] | | | | | | [facility] | | | | | | MEDICAL | | | | | | CENTER - | | | | | | LABORATORY | | + + + + + + | Creatinine | 0.61 | 0.60 - 1.30 | [facility] | | | | | mg/dL | [facility] | | | | | | MEDICAL | | | | | | CENTER - | | | | | | LABORATORY | | + + + + + + | eGFR if not | >60Comment: GLOMERULAR | >=60 | [facility] | | | | FILTRATION | mL/min/1.73m2 | [facility] | | | BAN[place]HI | RATE,ESTIMATED | | MEDICAL | | | | mL/min/1.49b6Kbjo than | | CENTER - | | [...] [address] | [place] | [phone] | | [facility] | | [address] | | | - [...] + | [address] | [address] | [place] | [phone] | | [facility] | | [address] | | | - LABORATORY | | [...] | | | | | | [employer] | | | | | [...] + | [address] | [address] | [place] | [phone] | | [facility] | | [address] | | | - LABORATORY | | [...] [address] | [place] | [phone] | | [facility] | | [address] | | | - LABORATORY | | [...] [address] | [place] | [phone] | | [facility] | | [address] | | | - LABORATORY | | [...] | | [facility] | | | [facility] | | | - LABORATORY | + + + + + + + + | Performing | Address | City/State/Zipcode | Phone Number | | Organization | | | | + + + + + | [facility] | [address] | [place] | [phone] | | [facility] | | [address] | | | - LABORATORY | | [...] + | [facility] | [address] | [place] | [phone] | | [facility] | | [address] | | | - LABORATORY | | [...] | | | | | | [employer] | | | | | [...] + | [facility] | [address] | [place] | [phone] | | [facility] | | [address] | | | - LABORATORY | | [...] ST. | [address] | [place] | [phone] | | [facility] | | [address] | | | - LABORATORY | | [...] ST. | [address] | [place] | [phone] | | [facility] | | [address] | | | - LABORATORY | | [...] [address] | [place] | [phone] | | [facility] | | [address] | | | - LABORATORY | | [...] [address] | [place] | [phone] | | [facility] | | [address] | | | - LABORATORY | | [...] [address] | [place] | [phone] | | [facility] | | [address] | | | - LABORATORY | | [...] - 1.030 | [facility] | | | [place] | | | [facility] | | [...] ST. | [address] | [place], [place] | [phone] | | [facility] | | [address] | | | - LABORATORY | | [...] mediastinal | | | lymphadenopathy, within the cykxt-kt-gfhd. Stable 7 mm nodule in | | [...] vocal cord nodularity. Nomediastinal lymphadenopathy, within the ppmcg-wx-zeol. Stable | | 7 mm nodule inthe right apex. Bullous changes in the left apex. Small blebs in the | | rightapex. No suspicious lytic or blastic bone lesions. Evidence of a healedsternal | | fracture. There appears to be fusion of the articular pillars at thelevel | | T3-S6WNZTEUALQF -No CT evidence for an acute intracranial [...] nodularity. No | |mediastinal lymphadenopathy, within the uudqv-av-xsxu. Stable 7 mm nodule in | |the [...] [address] | [place] | [phone] | | [facility] | | [address] | | | - LABORATORY | | [...] [address] | [place] | [phone] | | [facility] | | [address] | | | - LABORATORY | | [...] + | [facility] | [address] | [place] | [phone] | | [facility] | | [address] | | | - LABORATORY | | [...] [address] | [place] | [phone] | | [facility] | | [address] | | | - LABORATORY | | [...] | | | | | | [employer] | | | | | [...] ST. | [address] | [place], [place] | [phone] | | [facility] | | [address] | | | - LABORATORY | | [...] | | | FILTRATION | mL/min/1.73m2 | [facility] | | | [place] | RATE,ESTIMATED | | MEDICAL | | | | mL/min/1.34r4Ecsg than | | CENTER - | | [...] [address] | [place] | [phone] | | [facility] | | [address] | | | - LABORATORY | | [...] + + | [facility] | [address] | [place] | [phone] | | [facility] | | [address] | | | - LABORATORY | | [...] + | [address] | [address] | [place], [place] | [phone] | | [facility] | | [address] | | | - LABORATORY | | [...] | | | | RAFA WELLS MD ([id number]) | | | | | | on [...] | | | dose on [facility] 01/08/18 at 1500 | | | [...] Low | | | Blood Sugar, Starting [facility] | | | 01/08/18 at 1444 | | + +---+ | | | + +---+ + +-------+ +---------+---+---+ | digoxin (LANOXIN) tablet 125 | Given | 01/11/20 | 125 mcg | | | | mcg 125 mcg, Oral, DAILY, First | | 18 8:19 | | | | | dose on [facility] 01/08/18 at 1450 | | AM [...] | | | Anxiety, Starting [facility] 01/08/18 at | | | | [...] | | CT Scan, Starting [facility] 01/08/18 | | | | | [...] | | | dose on [facility] 01/08/18 at 1450 | | AM [...] | | First dose on [facility] 01/08/18 at | | PM PST [...] | | | | | | [facility] 01/09/2018 15:38, , , | | | [...] | | | | | Migraine, Starting [facility] 01/08/18 | | AM PST | [...]
--- OUTSIDE RECORDS SUMMARY | ~2019-01-15 | XMS | Encounter Summary ---
Demographics + + + | Address | [address] | | | [place] [address] | + + + | Home Phone [...] Team Providers + +------+ + | Care Coiled Tubing Operator Name | Role | Phone | [...] Groin pain, | MD Jared | [address] | | | | | right Hx | [address] | [place], | | | | | of coronary | [address] | [place] [address] | | | | | angiogram | [place], | Phone: | | | | | Peritoneal | [place] [address] | [phone] | | | | | bleeding | Phone: | Fax: | | | | | Procedures | [phone] | [phone] | | | | | CT Abdomen | Fax: | | | | | | Pelvis wo | [phone] | | | | | | Contrast [...] + | 03/07/ | Telephone | [facility] | Sharonda Delmycaitie, | Other [facility] | | 2015 | | CARDIOLOGY [address] | MD [address] | painful) | | | | [address] [place], | [place], | | | | | [place] [address] | [place] [address] | | | | | [phone] | [phone] | | | | | | | [...] [place] | | | | | | 132072 | | | | | | | | +--------+---------+ + + + | 11/24/ | Office | Cardiology | [place]roes, | | | 2019 | Visit | | SINDHU Erickson [address] | | | | | | [place], | | | | | | [place] [address] | | | | | | [phone] | | | | | | | [...] + | MISCELLANEOUS LAB | | | [phone] | + +---------+ + + | MISCELANIOUS LAB | | | [phone] | + +---------+ + + documented in [...]
--- OUTSIDE RECORDS SUMMARY | ~2019-01-15 | XMS | Encounter Summary ---
Demographics + + + | Address | [address] | | | [place] [address] | + + + | Home Phone [...] Providers + +------+ + | Care Video Tape Transferrer Name | Role | Phone | + [...] | | | | | pulmonary | [address] | [address] | | | | | disease, | [place], | [address] | | | | | unspecified | [place] [address] | [place], [place] | | | | | COPD type | Phone: | [address] | | | | | (HCC) | [phone] | Phone: | | | | | Pulmonary | Fax: | [phone] | | | | | emphysema, | [phone] | Fax: | | | | | unspecified | | [phone] | | | | | emphysema | | | | | | | type ([facility]) | | | +--------+ + + + + + Encounter Details +--------+---------+ + + + | Date | Type | Department | Care Team | Description | +--------+---------+ + + + | 05/23/ | Office | [facility] | Sharonda Delmycaitie, | Chronic obstructive | | 2017 | Visit | MED CTR CARDIAC | [address] | pulmonary disease, | | | | REHABILITATION [address] | [place], | unspecified COPD | | | | [address] [place] | [place] [address] | type (HCC) (Primary | | | | [place] [address] | [phone] | Dx) | | | | [phone] | | | +--------+---------+ + + + [...] [facility] CARDIAC REHABILITATION [address] [place] [address] Cardiac Rehab Date: 05/23/2016 Patient Information Patient [...] [place] | | | | | | [id number] | | | | | | | | +--------+---------+ + + + | 11/24/ | Office | Cardiology | [place], | | | 2019 | Visit | | SINDHU Erickson [address] | | | | | | [place], | | | | | | [place] [address] | | | | | | [phone] | | | | | | | | +--------+---------+ + + + documented as of this encounter Visit Diagnoses + + | Diagnosis | + + | Chronic obstructive pulmonary disease, unspecified COPD type (HCC) - Primary | + + documented in this encounter"
--- OUTSIDE RECORDS SUMMARY | ~2019-01-15 | XMS | Encounter Summary ---
Demographics + + + | Address | [address] | | | [place] [address] | + + + | Home Phone [...] Team Providers + +------+ + | Care Calibration Checker Name | Role | Phone | [...] + + | 02/19/ | Office | [facility] | Elda Miranda | Diarrhea (Primary | | 2011 | Visit | CONVENIENT CARE [address] | MD [address] | Dx); Dysuria | | | | [facility] | [address] [facility] | | | | | [place] | [place] [address] | | | | | [address] | [phone] | | | | | [phone] | | | +--------+---------+ + + + [...] allergies reviewed. Review of Systems As per [facility] Objective: Physical Exam Vital signs as noted, nursing notes reviewed. Jggrmgx-orvy-htjfinrdd well-nourished female in no apparent distress, pleasant [...] [place] | | | | | | [address] | | | | | | | | +--------+---------+ + + + | 11/24/ | Office | Cardiology | [place], | | | 2019 | Visit | | SINDHU Erickson [address] | | | | | | [place], | | | | | | [place] [address] | | | | | | [phone] | | | | | | | [...] | 1.015 | | | | | [place], | | | | | | UA, [...]
--- OUTSIDE RECORDS SUMMARY | ~2019-01-15 | XMS | Encounter Summary ---
Demographics + + + | Address | [address] | | | [place] [address] | + + + | Home Phone [...] + + | 09/02/ | Hospital | [facility] | [place], | Shortness of breath; | | 2017 | Encounter | MED CTR NUCLEAR | SINDHU Erickson [address] | Racing heart beat; | | | | MEDICINE [address] | [place], | Palpitations | | | | [place], | [place] [address] | | | | | [place] [address] | [phone] | | | | | [phone] | | | +--------+ + + + [...] | | | | | | [place] [address] | | | | | | [phone] | | | | | | | [...]
--- OUTSIDE RECORDS SUMMARY | ~2019-01-15 | XMS | Encounter Summary ---
Demographics + + + | Address | [address] | | | [place] [address] | + + + | Home Phone [...] Providers + +------+ + | Care Safety Assistant Name | Role | Phone | [...] + + | 06/17/ | Telephone | [facility] | [place], | Other | | 2018 | | CARDIOLOGY [address] | Georgina SENIOR PLANNING ANALYST [address] | | | | | [place], | [place], | | | | | [place] [address] | [place] [address] | | | | | [phone] | [phone] | | | | | | | [...] [place] | | | | | | [address] | | | | | | | | +--------+---------+ + + + | 11/24/ | Office | Cardiology | [place], | | | 2019 | Visit | | SINDHU Erickson [address] | | | | | | [place], | | | | | | [place] [address] | | | | | | [phone] | | | | | | | [...]
--- OUTSIDE RECORDS SUMMARY | ~2019-01-15 | XMS | Encounter Summary ---
Demographics + + + | Address | [address] | | | [place] [address] | + + + | Home Phone [...] Providers + +------+ + | Care Title Attorney Name | Role | Phone | [...] | obstruction, not | | | | [place], | [place], [place] | elsewhere classified | | | | [place] [address] | [address] | ([facility]) (Primary Dx) | | | | [phone] | | | +--------+ + + + [...] [place] | | | | | | [address] | | | | | | | | +--------+---------+ + + + | 11/24/ | Office | Cardiology | [place], | | | 2019 | Visit | | SINDHU Erickson [address] | | | | | | [place], | | | | | | [place] [address] | | | | | | [phone] | | | | | | | | +--------+---------+ + + + documented as of this encounter Visit Diagnoses + + | Diagnosis | + + | Chronic airway obstruction, not elsewhere classified - Primary | + + documented in this encounter"
--- OUTSIDE RECORDS SUMMARY | ~2019-01-15 | XMS | Encounter Summary ---
Demographics + + + | Address | [address] | | | [place] [address] | + + + | Home Phone [...] Team Providers + +------+ + | Care Stringed Instrument Assembler Name | Role | Phone | [...] + + | 05/28/ | Office | [facility] | Brian Miranda | Sprain of chest | | 2013 | Visit | OCCUPATIONAL HEALTH | [address] | abigail garcia | | | | [address] | [facility] | encounter (Primary | | | | [address] | [place] [address] | Dx); Place of | | | | [place], [place] | [phone] | occurrence, | | | | [address] | | industrial places | | | | [phone] | | and premises | +--------+---------+ + [...] - 05/28/2013 8:40 AM PDTClaim number: [id number] Date of injury: 04/05/2013 Employer: [employer]ette Salcedo [...] 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
--- OUTSIDE RECORDS SUMMARY | ~2019-01-15 | XMS | Encounter Summary ---
Demographics + + + | Address | [address] | | | [place] [address] | + + + | Home Phone [...] Providers + +------+ + | Care Wax Molder Name | Role | Phone | [...] + + | 04/06/ | Office | [facility] | Brian Miranda | Sprain of chest wall | | 2014 | Visit | OCCUPATIONAL HEALTH | [address] | (Primary Dx); Place | | | | [place] [address] | [facility] | of occurrence, | | | | [address] [facility] | [place] [address] | industrial places | | | | [place], [place] | [phone] | and premises | | | | [address] | | | | | | [phone] | | | +--------+---------+ + + + [...] MD - 04/06/2013 5:30 PM PSTSee dictation [id number] lisha d by Brian Miranda MD at 04/06/2013 5:30 PM Brian Avendano MD - 04/06/19 14 12:00 AM [facility] OCCUPATIONAL MEDICINE [address] [place] [address] [place], [place] [address] FAX: [phone] OFFICE VISIT CLAIM NO: [id number] DATE OF INJURY: 04/05/2013 EMPLOYER: Jelani Alcantara GUARANTOR: Jelani Rojas COMPLAINT: Chest wall sprain, unscheduled visit for followup evaluation and ongoing care. S: The injured worker is 48 years of age who presented without a scheduled appointment at [facility] urgent care/Occ/Med for an evaluation. 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 It was quite p ainful. She was unable to continue to work. She was evaluated in the emergency department a [facility] and that report is available for [...] GChris Miranda MD / AP JOB #: [id number] signed by Brian Miranda MD at 04/07/2013 [...] | | | | [place] | | | | | | [address] | | | | | | | | +--------+---------+ + + + | 11/24/ | Office | Cardiology | [place], | | | 2019 | Visit | | SINDHU Erickson [address] | | | | | | [place], | | | | | | [place] [address] | | | | | | [phone] | | | | | | | [...]
--- OUTSIDE RECORDS SUMMARY | ~2019-01-15 | XMS | Encounter Summary ---
Demographics + + + | Address | [address] | | | [place] [address] | + + + | Home Phone [...] Team Providers + +------+ + | Care Branch Account Manager Name | Role | Phone [...] | RN | | | | | [place], | | | | | | [place] [address] | | | | | | [phone] | | | +--------+ + + + [...] | | | | [place] | | | | | | [address] | | | | | | | | +--------+---------+ + + + | 11/24/ | Office | Cardiology | [place], | | | 2020 | Visit | | SINDHU Erickson [address] | | | | | | [place], | | | | | | [place] [address] | | | | | | [phone] | | | | | | | | +--------+---------+ + + + documented as of this encounter Visit Diagnoses + + | Diagnosis | + + | GARRY (obstructive sleep apnea) - Primary Obstructive sleep apnea (adult) (pediatric) | + + documented in this encounter"
--- OUTSIDE RECORDS SUMMARY | ~2019-01-15 | XMS | Encounter Summary ---
Demographics + + + | Address | [address] | | | [place] [address] | + + + | Home Phone [...] Providers + +------+ + | Care Accounts Receivable Manager Name | Role | Phone | [...] Provider Unknown | | | | | [place], [place] | [phone] | | | | | [address] | | | | | | [phone] | | | +--------+ + + + [...] [place] | | | | | | [address] | | | | | | | | +--------+---------+ + + + | 11/24/ | Office | Cardiology | [place], | | | 2019 | Visit | | SINDHU Erickson [address] | | | | | | [place], | | | | | | [place] [address] | | | | | | [phone] | | | | | | | [...]
--- OUTSIDE RECORDS SUMMARY | ~2019-01-15 | XMS | Encounter Summary ---
Demographics + + + | Address | [address] | | | [place] [address] | + + + | Home Phone [...] Team Providers + +------+ + | Care Psychic Reader Name | Role | Phone | [...] + | 10/07/ | Telephone | [facility] | Sandoval Kevin, | Other | | 2014 | | PULMONARY [address] | MD [address] | | | | | [place], | [place], [place] | | | | | [place] [address] | [address] | | | | | [phone] | | | +--------+ + + + [...] [place] | | | | | | [address] | | | | | | | | +--------+---------+ + + + | 11/24/ | Office | Cardiology | [place], | | | 2019 | Visit | | SINDHU Erickson [address] | | | | | | [place] | | | | | | [place] [address] | | | | | | [phone] | | | | | | | | +--------+---------+ + + + documented as of this encounter Visit Diagnoses Not on filedocumented in this encounter"
--- OUTSIDE RECORDS SUMMARY | ~2019-01-15 | XMS | Encounter Summary ---
Demographics + + + | Address | [address] | | | [place] [address] | + + + | Home Phone [...] + + | 04/05/ | Hospital | [facility] | Yesenia Landin | | | 2013 | Encounter | MED CTR EMERGENCY | DO Cipriano Christin OTMAS | | | | | CENTER [address] | [place], [place] | | | | | [place], [place] | [address] | | | | | [address] | | | | | | [phone] | Ozzy Aponte | | | | | | Ozzie Kebede MD | | | | | | [address] | | | | | | [place], [place] | | | | | | [address] | | | | | | | [...] [place] | | | | | | [address] | | | | | | | | +--------+---------+ + + + | 11/24/ | Office | Cardiology | [place] | | | 2019 | Visit | | SINDHU Erickson [address] | | | | | | [address] [place], | | | | | | [place] [address] | | | | | | [phone] | | | | | | | [...] + | [facility] | [place] | | Department [address] [facility] | [facility] | | [ rep [address]] [ rep [facility] | | st zip] Signed | - IMAGING | | | | | Patient Name: JADYN SCHMITZ | | | Physician: MARY : 1965 Age: 48 Sex: F Unit | | | #: [id number] Exam Date: 04/05/13 Location: | | | ER Report #: [id number] Page: | | | %(RAD)RES..mtdd.print.filter("pg") of %(RAD) | | | RES..mtdd.print.filter("tpg") | | | | | | Accession Number: [id number] | | | TWO VIEWS OF THE [...] Transcribed Date/Time: 04/06/2013 | | | 08:52 Hospital Medical Biller: <<Signature | | | on File>> | | | Aditya Alonso | | | MD Claudio04/06/13 2312 <Electronically signed by Aditya Snyder MD> | | | Aditya Snyder MD 04/06/1345 Hospital Medical Biller: | | | Webmedx Fctcahprucrqs87/11/14 0852 | | + + + + + + + + | Performing | Address | City/State/[facility] | Phone Number | | Organization | | | | + + + + + | [facility] | [address] | [place] | [phone] | | [facility] | | [address] | | | - IMAGING | | | | + + + + + XR Chest PA and Lateral (04/06/2013 8:14 AM PST) + + | Specimen | + + | | + + + + + | Narrative | Performed At | + + + | [facility] | [place] | | Department [address] [facility] | [facility] | | [ rep ct [address]] [ rep [facility] | | [facility]] Signed | - IMAGING | | | | | Patient Name: JADYN SCHMITZ W | | | Physician: MARY : 1965 Age: 48 Sex: F Unit | | | #: [id number] Exam Date: 04/05/13 Location: | | | ER Report #: [id number] Page: | | | %(RAD)RES..mtdd.print.filter("pg") of %(RAD) | | | RES..mtdd.print.filter("tpg") | | | | | | Accession Number: [id number] | | | PA AND LATERAL CHEST: [...] Transcribed Date/Time: 04/06/2013 08:17 | | | Hospital Medical Biller: <<Signature on File>> | | | | | | Aditya Snyder MD04/06/132 <Electronically signed by Aditya Alonso | | | Claudio PAUL> Aditya Snyder MD 04/06/13813 | | | Hospital Medical Biller: Neal Zyhivznjwzxes46/11/14816 | | | | | + + + + + + + + | Performing | Address | City/State/Zipcode | Phone Number | | Organization | | | | + + + + + | [facility] | [address] | [place] | [phone] | | [facility] | | [address] | | | - IMAGING | | | | + + + + + documented in this encounter Visit Diagnoses Not on filedocumented in this encounter
--- OUTSIDE RECORDS SUMMARY | ~2019-01-15 | XMS | Encounter Summary ---
Demographics + + + | Address | [address] | | | [place] [address] | + + + | Home Phone [...] Team Providers + +------+ + | Care Steel Estimator Name | Role | Phone | [...] | | not | [place], | [place] | | | | | elsewhere | [place] [address] | [place], [place] | | | | | classified | Phone: | [address] | | | | | Procedures | [phone] | Phone: | | | | | [place] [facility] | Fax: | [phone] | | | | | REHAB W | [phone] | Fax: | | | | | EXER | | [phone] | +--------+--------+ + + + + Encounter Details +--------+---------+ + + + | Date | Type | Department | Care Team | Description | +--------+---------+ + + + | 12/14/ | Office | [facility] | Sandoval, Kevin, | COPD (chronic | | 2013 | Visit | MED CTR CARDIAC | MD [address] | obstructive | | | | REHABILITATION [address] | [place] | pulmonary disease) | | | | [address] [place] | [address] | ([facility]) (Primary Dx) | | | | [place] [address] | | | | | | [phone] | Mary Nunez RN | | +--------+---------+ [...] tachycardia and is wearing a [employer] which she will turn in [place]. Today, sinus rhythm 90-98 bpm without ectopy. [...] reps. Her PFT doesn't qualify her for [place], so we will monitor her as a [...] [place] | | | | | | [address] | | | | | | | | +--------+---------+ + + + | 11/24/ | Office | Cardiology | [place], | | | 2019 | Visit | | SINDHU Erickson [address] | | | | | | [place], | | | | | | [place] [address] | | | | | | [phone] | | | | | | | | +--------+---------+ + + + documented as of this encounter Visit Diagnoses + + | Diagnosis | + + | COPD (chronic obstructive pulmonary disease) (HCC) - Primary Chronic airway | | obstruction, not elsewhere classified | + + documented in this encounter
--- OUTSIDE RECORDS SUMMARY | ~2019-01-15 | XMS | Encounter Summary ---
Demographics + + + | Address | [address] | | | [place] [address] | + + + | Home Phone [...] Team Providers + +------+ + | Care Destination Sign Repairer Name | Role | Phone | [...] CARDIOLOGY [address] | MD [address] | Dx) | | | | [place], | [place], | | | | | [place] [address] | [place] [address] | | | | | [phone] | [phone] | | | | | | | [...] | | | | | | [place] [address] | | | | | | [phone] | | | | | | | | +--------+---------+ + + + documented as of this encounter Visit Diagnoses + + | Diagnosis | + + | Tachycardia - Primary Tachycardia, unspecified | + + documented in this encounter
--- OUTSIDE RECORDS SUMMARY | ~2019-01-15 | XMS | Encounter Summary ---
Demographics + + + | Address | [address] | | | [place] [address] | + + + | Home Phone [...] Providers + +------+ + | Care Compressor Service Technician Name | Role | Phone [...] [address] | | | | | [place], | [place], | | | | | [place] [address] | [place] [address] | | | | | [phone] | [phone] | | | | | | | [...] | | | | | | [place] [address] | | | | | | [phone] | | | | | | | | +--------+---------+ + + + documented as of this encounter Visit Diagnoses Not on filedocumented in this encounter"
--- OUTSIDE RECORDS SUMMARY | ~2019-01-15 | XMS | Encounter Summary ---
Demographics + + + | Address | [address] | | | [place] [address] | + + + | Home Phone [...] Team Providers + +------+ + | Care Feller Operator Name | Role | Phone | [...] | Concussion | Aaron Kim MD | Regulator Mechanic [address] | | | Required | | with brief | [address] | [place] | | | | | loss of | [address] | [place], [place] | | | | | consciousnes | [place], | [address] | | | | | s Word | [place] [address] | Phone: | | | | | finding | Phone: | [phone] | | | | | difficulty | [phone] | Fax: | | | | | [phone] | Fax: | [phone] | | | | | (ICD-10-CM) | [phone] | | | | | | - [...] + + | 06/20/ | Hospital | [facility] | Aaron Rodriguez, | Impaired memory | | 2017 | Encounter | MED CTR SPEECH | MD [address] | (Primary Dx); | | | | THERAPY [address] | [place] | Concussion with | | | | [place], | [address] | brief (less than one | | | | [place] [address] | | hour) loss of | | | | [phone] | Kathi Soto, | consciousness; | | [...] | 0 | 10/13/19 | | | Gdnmiatmii-FVFL-Bedi | mouth as needed. | | | 16 | 7 | | -Cod 25-021-25-30 MG | | | | | | [...] Speech Pathologist - 06/21/2016 1:45 PM PDT [facility] [address] [facility] [address] Speech Therapy Daily Treatment Note Date: 06/20/2016 [...] Precautions Office Visit from 05/01/2016 in [facility] THERAPY PT OP Rehab Precautions Precautions None Rehab Learning Style [employer] FUNDRAISER OP EVAL from 05/16/2016 in [facility] SPEECH THERAPY Office V isit from 05/01/2016 in [facility] THERAPY PT OP Learning Style Patient's [...] [place] | | | | | | [address] | | | | | | | | +--------+---------+ + + + | 11/24/ | Office | Cardiology | [place], | | | 2019 | Visit | | SINDHU Erickson [address] | | | | | | [place], | | | | | | [place] [address] | | | | | | [phone] | | | | | | | [...]
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
--- OUTSIDE RECORDS SUMMARY | ~2019-01-15 | XMS | Encounter Summary ---
Demographics + + + | Address | [address] | | | [place] [address] | + + + | Home Phone [...] Team Providers + +------+ + | Care Devulcanizer Tender Name | Role | Phone | [...] | | | | CENTER [address] | [address] [facility] | | | | | [place], [place] | [place] [address] | | | | | [address] | [phone] | | | | | [phone] | | | +--------+ + + + [...] [place] | | | | | | [address] | | | | | | | | +--------+---------+ + + + | 11/24/ | Office | Cardiology | [place], | | | 2019 | Visit | | SINDHU Erickson [address] | | | | | | [place], | | | | | | [place] [address] | | | | | | [phone] | | | | | | | | +--------+---------+ + + + documented as of this encounter Visit Diagnoses Not on filedocumented in this encounter"
--- OUTSIDE RECORDS SUMMARY | ~2019-01-15 | XMS | Encounter Summary ---
Demographics + + + | Address | [address] | | | [place] [address] | + + + | Home Phone [...] Team Providers + +------+ + | Care Html Developer Name | Role | Phone | [...] + + | 12/28/ | Office | [facility] [place] | Offenstein, | COPD exacerbation | | 2012 | Visit | PULMONARY [address] | Loreta Alonso MD | ([facility]) (Primary Dx); | | | | [place], | | [place]ARRY (obstructive | | | | [place] [address] | | sleep apnea); | | | | [phone] | | Central sleep apnea | +--------+---------+ [...] Care [facility] [address] [place], [address] HPI Rosario Malik is a 47 y.o. female patient of Juan Cherry here today for follow up of COPD. She notes that she moved back from [place] in November at some point. She had a difficult t francy while in [place], requiring hospitalization 2 times at [facility], once in September an d October. She returned, and developed symptoms of an exacerbation, and called in. We referred her to urgent care, and she went to emergency room. She was hypoxemic despite nebulizers, and so wa s admitted. She was in the hospital for two nights. Before she left for [place], she was on Advair and Combivent. She then added Ventolin/Prov entil. She then started Spiriva at her most recent hospitalization. Curently, she is on Spir aravind, Advair, Combivent, ProAir, and albuterol nebulizers. She was given levofloxacin at discharge, but it apparently reacts with her Geodon, so was n ot filled by [facility]. 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 Please se nd order to [facility]. This is not [...] type: ResMedS9 auto CPAP Home Health Company: [employer] CPAP Pressure: 11-14 cmH2O Median Titrated Pressure: [...] made to ensure accuracy; however, inadvertent computerized bilingual customer service specialist errors may be pre sent. documented [...] [place], | | | | | | [place] [address] | | | | | | [phone] | | | | | | | [...]
--- OUTSIDE RECORDS SUMMARY | ~2019-01-15 | XMS | Encounter Summary ---
Demographics + + + | Address | [address] | | | [place] [address] | + + + | Home Phone [...] Providers + +------+ + | Care French Polisher Name | Role | Phone | + +------+ + | Ozzy Declid MD | PCP | | + +------+ + Encounter Details +--------+ + + + + | Date | Type | Department | Care Team | Description | +--------+ + + + + | 11/05/ | Abstract | [place] [facility] | DATA MIGRATION QUIN | | | 2011 | | Conversion Location | SR | | | | | [phone] | | | +--------+ + + + [...] [place] | | | | | | [address] | | | | | | | | +--------+---------+ + + + | 11/24/ | Office | Cardiology | [place], | | | 2019 | Visit | | SINDHU Erickson [address] | | | | | | [place], | | | | | | [place] [address] | | | | | | [phone] | | | | | | | [...]
--- OUTSIDE RECORDS SUMMARY | ~2019-01-15 | XMS | Encounter Summary ---
Demographics + + + | Address | [address] | | | [place] [address] | + + + | Home Phone [...] Providers + +------+ + | Care Analytics Lead Name | Role | Phone | [...] | | [place] | [facility]OM [facility] | | | | | [address] | [place] [address] | | | | | [phone] | [phone] | | | | | | | [...] [place] | | | | | | [address] | | | | | | | | +--------+---------+ + + + | 11/24/ | Office | Cardiology | [place], | | | 2019 | Visit | | SINDHU Erickson [address] | | | | | | [place], | | | | | | [place] [address] | | | | | | [phone] | | | | | | | | +--------+---------+ + + + documented as of this encounter Visit Diagnoses Not on filedocumented in this encounter"
--- OUTSIDE RECORDS SUMMARY | ~2019-01-15 | XMS | Encounter Summary ---
Demographics + + + | Address | [address] | | | [place] [address] | + + + | Home Phone [...] + +------+ + | Care Child Care Name | Role | Phone | + +------+ + PCP | Unavailable | + +------+ + Encounter Details +--------+ + + + + | Date | Type | Department | Care Team | Description | +--------+ + + + + | 12/19/ | [facility] | [facility] | | | | 2009 | Encounter | MED CTR LABORATORY | | | | | | [address] [place] | | | | | | [place] | | | | | | [address] | | | | | | [phone] | | | +--------+ + + + [...] [place] | | | | | | [address] | | | | | | | | +--------+---------+ + + + | 11/24/ | Office | Cardiology | [place], | | | 2020 | Visit | | SINDHU Erickson [address] | | | | | | [place], | | | | | | [place] [address] | | | | | | [phone] | | | | | | | | +--------+---------+ + + + documented as of this encounter Visit Diagnoses Not on filedocumented in this encounter"
--- OUTSIDE RECORDS SUMMARY | ~2019-01-15 | XMS | Encounter Summary ---
Demographics + + + | Address | [address] | | | [place] [address] | + + + | Home Phone [...] Team Providers + +------+ + | Care Resp Therapist Name | Role | Phone | [...] [address] | | | | | [place], | [place] | | | | | [place] [address] | [address] | | | | | [phone] | | | +--------+ + + + [...] [place] | | | | | | [address] | | | | | | | | +--------+---------+ + + + | 11/24/ | Office | Cardiology | [place], | | | 2019 | Visit | | SINDHU Erickson [address] | | | | | | [place], | | | | | | [place] [address] | | | | | | [phone] | | | | | | | | +--------+---------+ + + + documented as of this encounter Visit Diagnoses Not on filedocumented in this encounter"
--- OUTSIDE RECORDS SUMMARY | ~2019-01-15 | XMS | Encounter Summary ---
Demographics + + + | Address | [address] | | | [place] [address] | + + + | Home Phone [...] Team Providers + +------+ + | Care Treatment Plant Operator Name | Role | Phone [...] [address] | | | | | [place], | [place], | | | | | [place] [address] | [place] [address] | | | | | [phone] | [phone] | | | | | | | [...] [place] | | | | | | [address] | | | | | | | | +--------+---------+ + + + | 11/24/ | Office | Cardiology | [place], | | | 2019 | Visit | | SINDHU Erickson [address] | | | | | | [place], | | | | | | [place] [address] | | | | | | [phone] | | | | | | | | +--------+---------+ + + + documented as of this encounter Visit Diagnoses Not on filedocumented in this encounter"
--- OUTSIDE RECORDS SUMMARY | ~2019-01-15 | XMS | Encounter Summary ---
Demographics + + + | Address | [address] | | | [place] [address] | + + + | Home Phone [...] Providers + +------+ + | Care Manager Wastewater Name | Role | Phone | + [...] + + | 06/19/ | Emergency | [facility] | Nestor Martinez, | COPD with acute | | 2013 - | | MED CTR EMERGENCY | [address] | exacerbation (HCC) | | | | CENTER [address] | [place], [place] | (Primary Dx) | | 06/20/ | | [place] | [address] | | | 2013 | | [address] | | | | | | [phone] | Ozzie Hayes | | | | | | MD Ran [address] | | | | | | [address] [facility] | | | | | | [place] [address] | | | | | | [phone] | | | | | | | [...] | | | | | order to [facility]. | | | | | [...] | | | | send order to [facility] | | | | [...] [place] | | | | | | [address] | | | | | | | | +--------+---------+ + + + | 11/24/ | Office | Cardiology | [place], | | | 2019 | Visit | | SINDHU Erickson [address] | | | | | | [place], | | | | | | [place] [address] | | | | | | [phone] | | | | | | | [...]
--- OUTSIDE RECORDS SUMMARY | ~2019-01-15 | XMS | Encounter Summary ---
Demographics + + + | Address | [address] | | | [place] [address] | + + + | Home Phone [...] Providers + +------+ + | Care Dental Ceramist Helper Name | Role | Phone | [...] + + | 11/23/ | Emergency | [facility] | Alexi Guaman, | Post-op pain | | 2016 | | MED CTR EMERGENCY | MD [address] | (Primary Dx) | | | | CENTER [address] [place] | [place] | | | | | [place] | [address] | | | | | [address] | | | | | | [phone] | | | +--------+ + + + [...] sent through Care Everywhere.PAIN MANAGEMENT AFTER SURGERY (ARMENIAN)documented in this encounter Medications at Time of [...] | | | | | | [facility]. | | | | | [...] | 0 | 10/13/19 | | | Bfpxsnvznk-UIJO-Mfsw | mouth as needed. | | | 16 | 7 | | -Cod 38-803-69-30 MG | | | | | | [...] [place] | | | | | | [address] | | | | | | | | +--------+---------+ + + + | 11/24/ | Office | Cardiology | [place], | | | 2019 | Visit | | SINDHU Erickson [address] | | | | | | [place], | | | | | | [place] [address] | | | | | | [phone] | | | | | | | [...]
--- OUTSIDE RECORDS SUMMARY | ~2019-01-15 | XMS | Encounter Summary ---
Demographics + + + | Address | [address] | | | [place] [address] | + + + | Home Phone [...] + + | 01/24/ | Hospital | [facility] | Avi Guru Garzon, | | | 2009 | Encounter | MED CTR EMERGENCY | MD [address] | | | | | CENTER [address] [place] | [facility] [place] | | | | | [place], [place] | [place] [address] | | | | | [address] | [phone] | | | | | [phone] | | | +--------+ + + + [...] [place] | | | | | | [address] | | | | | | | | +--------+---------+ + + + | 11/24/ | Office | Cardiology | [place], | | | 2020 | Visit | | SINDHU Erickson [address] | | | | | | [place], | | | | | | [place] [address] | | | | | | [phone] | | | | | | | | +--------+---------+ + + + documented as of this encounter Visit Diagnoses Not on filedocumented in this encounter"
--- OUTSIDE RECORDS SUMMARY | ~2019-01-15 | XMS | Encounter Summary ---
Demographics + + + | Address | [address] | | | [place] [address] | + + + | Home Phone [...] Providers + +------+ + | Care Acid Cleaner Name | Role | Phone | [...] [address] | | | | | [place], | [place], | | | | | [place] [address] | [place] [address] | | | | | [phone] | [phone] | | | | | | | [...] | | | | | | [place] [address] | | | | | | [phone] | | | | | | | | +--------+---------+ + + + documented as of this encounter Visit Diagnoses Not on filedocumented in this encounter"
--- OUTSIDE RECORDS SUMMARY | ~2019-01-15 | XMS | Encounter Summary ---
Demographics + + + | Address | [address] | | | [place] [address] | + + + | Home Phone [...] Providers + +------+ + | Care District Administrator Name | Role | Phone | [...] Provider Unknown | | | | | [place], [place] | [phone] | | | | | [address] | | | | | | [phone] | | | +--------+ + + + [...] [facility]) | | | | | | + [...] | | | | [place] [facility] | | | | | | [address] | | | | | | | | +--------+---------+ + + + | 11/24/ | Office | Cardiology | [place], | | | 2019 | Visit | | SINDHU Erickson [address] | | | | | | [place], | | | | | | [place] [address] | | | | | | [phone] | | | | | | | [...]
--- OUTSIDE RECORDS SUMMARY | ~2019-01-15 | XMS | Encounter Summary ---
Demographics + + + | Address | [address] | | | [place] [address] | + + + | Home Phone [...] Team Providers + +------+ + | Care Float Nurse Name | Role | Phone | [...] + + | 09/25/ | Office | [facility] | [place], | Chest pain, | | 2016 | Visit | CARDIOLOGY [address] | SINDHU Erickson [address] | unspecified type | | | | [place], | [place], | (Primary Dx); | | | | [place] [address] | [place] [address] | Paroxysmal atrial | | | | [phone] | [phone] | tachycardia (HCC); | | | | [...] schedule for a Holter monitor and to [facility] stephen to come to discuss results. [...] She is getting ready to go to [place] to be evaluated in [place] for a stomach/a bdominal surgery. Cardiac-garcia she [...] takes this da rigoberto Respiratory Therapy Supplies [facility] Please provide patient with necessary CPAP supplies ( she did not specify, okay to send order as appropriate) Diagnosis Code(s)327.23 . Length of Need 99 months. Please send order to [facility]. 1 each 0 Respiratory Therapy Supplies [facility] Change CPAP back to 11-14 cm H2O. [...] RESULTS reviewed during visit today primarily from [facility]: LIPID No results found for: CHOL, [...] PLTEX 370 07/11/2014 I reviewed records from [facility] for office visit on 09/05/2015 which [...] She was seen at the ED of [facility] 3 weeks ago and again [...] She is in a class II of [place] [employer] functional class. There is [...] ventricular function don e at the [facility]. LVEF 78%. C. Holter Monitor [...] this chart may have been created with [employer] voice recognition software. Occasi onal wrong-word [...] [place] | | | | | | [address] | | | | | | | | +--------+---------+ + + + | 11/24/ | Office | Cardiology | [place], | | | 2019 | Visit | | SINDHU Erickson [address] | | | | | | [place], | | | | | | [place] [address] | | | | | | [phone] | | | | | | | | +--------+---------+ + + + documented as of this encounter Visit Diagnoses + + | Diagnosis | + + | Chest pain, unspecified type - Primary | + + | Paroxysmal atrial tachycardia (HCC) Paroxysmal supraventricular tachycardia | + + | Palpitations | + + documented in this encounter
--- OUTSIDE RECORDS SUMMARY | ~2019-01-15 | XMS | Encounter Summary ---
Demographics + + + | Address | [address] | | | [place] [address] | + + + | Home Phone [...] | | MD Jared | [address] | | | | | Pericarditis | [address] | [place], | | | | | Procedures | [address] | [place] | | | | | ECHO | [place], | [address] | | | | | Complete | [place] [address] | Phone: | | | | | | Phone: | [phone] | | | | | | [phone] | Fax: | | | | | | Fax: | [phone] | | | | | | [phone] | | +--------+--------+ + + + + [...] | CARDIOLOGY [address] | [address] | (Primary Dx); | | | | [place], | [place], | Pal[place]; | | | | [place] [address] | [place] [address] | Tachycardia; | | | | [phone] | [phone] | Pericarditis | | | | | [...] of [facility] 3 weeks ago. There was no [...] Take by mouth Daily. Respiratory Therapy Supplies [facility] [place] Incentive spirometer. Please provide instructions in use. Dx: 848.8 MADELEINE: 3 months 1 each 99 Respiratory Therapy Supplies [facility] [place] Please provide patient with necessary CPAP supplies ( she did not specify, okay to send order as appropriate) Diagnosis Code(s)327.23 . Length of Need 99 months. Please send order to [facility]. 1 each 0 Respiratory Therapy Supplies [facility] [place] Change CPAP back to 11-14 cm [...] of [facility] 3 weeks ag o. according to the history, I suspect that she has pericarditis. However, EKG shows no ST elevation. Physical exam shows no pericardial rub. Patient states that she is allergic to NSAID's There is no signs and symptoms of overt congestive heart failure. She is in a class II of [place] [employer] functional class. There is [...] Mcdonough MD [facility] 01/11/2014 Portions of this chart may have been created with [employer] voice recognition software. Occasi onal wrong-word [...] [place] | | | | | | [address] | | | | | | | | +--------+---------+ + + + | 11/24/ | Office | Cardiology | [place], | | | 2019 | Visit | | SINDHU Erickson [address] | | | | | | [place], | | | | | | [place] [address] | | | | | | [phone] | | | | | | | [...] Performed At | + + + | [facility] ECHOCARDIOGRAM REPORT | [place] | | STUDY DATE: 01/14/2014 PATIENT NAME: Rosario Malik | [facility] | | : 1965 PCP: Juan Cherry, [facility] | | CLINICAL HISTORY/DIAGNOSIS: Pericarditis/pericardial effusion [...] | Jared Mcdonough MD [facility] 01/14/2014 8:40 Publicity Agent: | | | Charmaine Ibarra RDMS | | + + + + + | Procedure Note | + + | Jared Mcdonough MD - 01/14/2014 11:28 AM [facility] | | CENTERECHOCARDIOGRAM REPORTSTUDY DATE: 01/14/2014PATIENT NAME: Rosario AyersOB: | | 1965MRN: [id number]: EFREN GuillaumeLINICAL HISTORY/DIAGNOSIS: | | Pericarditis/pericardial effusionA [...] m/sMPG mitral valve: mmHgPFV TR jet: 1.9 m/Ibrahiam/RV PP.4 | | mmHgLA volume: 30 mLLA index: 18 mL/i9Ecxqha Inflow DT: 262 msIVRT: 75 msValsalva: | | NegativePWDTI S wave: 8.7 cm/sPWDTI E wave: 9.0 cm/sPWDTI A wave: 11.5 cm/sE/A Ratio: | | 0.783E/E Ratio: 8.95Signed by: Jared Mcdonough MD [facility] 01/14/2014 8:40 | | Publicity Agent: Charmaine Ibarra RDMS | | | | [...] Mcdonough MD [facility] | | 01/14/2014 8:40 | | | | | |Publicity Agent: Charmaine Ibarra RDMS | + + + + + + + | Performing | Address | City/State/Zipcode | Phone Number | | Organization | | | | + + + + + | [facility] | [address] | [place] | [phone] | | [facility] | | [address] | | | - IMAGING | | [...]
--- OUTSIDE RECORDS SUMMARY | ~2019-01-15 | XMS | Encounter Summary ---
Demographics + + + | Address | [address] | | | [place] [address] | + + + | Home Phone [...] Team Providers + +------+ + | Care Flower Shop Manager Name | Role | Phone | [...] + | 12/08/ | Telephone | [facility] | Jared Mcdonough, | Appointment | | 2014 | | CARDIOLOGY [address] | [address] | | | | | [place], | [place], | | | | | [place] [address] | [place] [address] | | | | | [phone] | [phone] | | | | | | | [...] [place] | | | | | | [address] | | | | | | | | +--------+---------+ + + + | 11/24/ | Office | Cardiology | [place], | | | 2019 | Visit | | SINDHU Erickson [address] | | | | | | [place], | | | | | | [place] [address] | | | | | | [phone] | | | | | | | | +--------+---------+ + + + documented as of this encounter Visit Diagnoses Not on filedocumented in this encounter"
--- OUTSIDE RECORDS SUMMARY | ~2019-01-15 | XMS | Encounter Summary ---
Demographics + + + | Address | [address] | | | [place] [address] | + + + | Home Phone [...] Team Providers + +------+ + | Care Washroom Attendant Name | Role | Phone | [...] + + | 06/09/ | Office | [facility] | Kevin Sandoval, | COPD (chronic | | 2015 | Visit | PULMONARY [address] | MD [address] | obstructive | | | | [place], | [place], [place] | pulmonary disease) | | | | [place] [address] | [address] | (HCC) (Primary Dx); | | | | [phone] | | Hypoxemia (HCC); GARRY | | [...] car. Draw. Do a puzzle. Build a bird[employer]zer [employer]. Delay. The urge to smoke lasts only [...] of these could help you quit smoking. 4949-2344 [employer]. [address] [place] [address]. All righ ts reserved. This information is [...] for a COPD exacerbation since our last [facility] appointment. Pulmonary last clinic appointment [...] [facility]) 10/28/2012 Overview: Managed by [facility] [...] 15 tablet, Rfl: 3, Respiratory Therapy Supplies [facility], Please provide patient with necessary CPAP supplies (she did not specify, okay to send order as appropriate) Diagnosis Code(s)327.23 . Length of Nee d 99 months. Please send order to [facility] Disp: 1 each, Rfl: 0, Respiratory Therapy Supplies MISC, Change CPAP back to 11-14 cm H2O. All necessary supplies . No oxygen bleed in. Diagnosis Code(s)327.23. Length of Need: Lifetime. Please send order t [facility]. This is not a [...] | | | | [place] | | | | | | [address] | | | | | | | | +--------+---------+ + + + | 11/24/ | Office | Cardiology | [place], | | | 2019 | Visit | | SINDHU Erickson [address] | | | | | | [place], | | | | | | [place] [address] | | | | | | [phone] | | | | | | | [...]
--- OUTSIDE RECORDS SUMMARY | ~2019-01-15 | XMS | Encounter Summary ---
Demographics + + + | Address | [address] | | | [place] [address] | + + + | Home Phone [...] + +------+ + | Care Front Desk Lead Name | Role | Phone | + +------+ + PCP | Unavailable | + +------+ + Encounter Details +--------+ + + + + | Date | Type | Department | Care Team | Description | +--------+ + + + + | 08/09/ | Hospital | [facility] | [place], | | | 2009 | Encounter | MED CTR EMERGENCY | Ozzy Kim MD [address] | | | | | [place] [address] [place] | [address] [facility] | | | | | [place], [place] | [place] [address] | | | | | [address] | [phone] | | | | | [phone] | | | +--------+ + + + [...] [place] | | | | | | [id number] | | | | | | | | +--------+---------+ + + + | 11/24/ | Office | Cardiology | [place], | | | 2019 | Visit | | SINDHU Erickson [address] | | | | | | [place] | | | | | | [place] [address] | | | | | | [phone] | | | | | | | | +--------+---------+ + + + documented as of this encounter Visit Diagnoses Not on filedocumented in this encounter"
--- OUTSIDE RECORDS SUMMARY | ~2019-01-15 | XMS | Encounter Summary ---
Demographics + + + | Address | [address] | | | [place] [address] | + + + | Home Phone [...] Team Providers + +------+ + | Care Survival Equipment Repairer Name | Role | Phone | + +------+ + PCP | Unavailable | + +------+ + Encounter Details +--------+ + + + + | Date | Type | Department | Care Team | Description | +--------+ + + + + | 04/21/ | Hospital | [facility] | Nestor Martinez, | | | 2010 | Encounter | MED CTR EMERGENCY | [address] | | | | | CENTER [address] [place] | [place], [place] | | | | | [place] | [address] | | | | | [address] | | | | | | [phone] | | | +--------+ + + + [...] [place] | | | | | | [id number] | | | | | | | | +--------+---------+ + + + | 11/24/ | Office | Cardiology | [place], | | | 2019 | Visit | | SINDHU Erickson [address] | | | | | | [place], | | | | | | [place] [address] | | | | | | [phone] | | | | | | | | +--------+---------+ + + + documented as of this encounter Visit Diagnoses Not on filedocumented in this encounter"
--- OUTSIDE RECORDS SUMMARY | ~2019-01-15 | XMS | Encounter Summary ---
Demographics + + + | Address | [address] | | | [place] [address] | + + + | Home Phone [...] Providers + +------+ + | Care Harbor Pilot Name | Role | Phone | [...] + + | 05/13/ | Office | [facility] | Andriy Weebr | Pyuria (Primary Dx); | | 2017 | Visit | [address] | MD [address] | Interstitial | | | | [place] | [address] | cystitis | | | | [address] | [place] [address] | | | | | [phone] | | | | | | | [...] HOSPITAL. 1 each 0 Respiratory Therapy Supplies [facility]ONESS [...] of instillation, we can use a 20 Emirati catheter to determine urethral patency. I suggested [...] t is made to edit the content, business liaison officer errors may occur. Occasional wrong- word or [...] | | | | [place], [place] | | | | | | [address] | | | | | | | | +--------+---------+ + + + | 11/24/ | Office | Cardiology | [place], | | | 2019 | Visit | | SINDHU Erickson [address] | | | | | | [place], | | | | | | [place] [address] | | | | | | [phone] | | | | | | | [...] 1.001 - 1.030 | | | | [place], | | | | | | [facility], [...] [address] | [place] | [phone] | | [facility] | | [address] | | | - LABORATORY | | [...]
--- OUTSIDE RECORDS SUMMARY | ~2019-01-15 | XMS | Encounter Summary ---
Demographics + + + | Address | [address] | | | [place] [address] | + + + | Home Phone [...] Providers + +------+ + | Care Water Main Installer Helper Name | Role | Phone [...] [address] | | | | | [place], [place] | [address] [facility] | | | | | [address] | [place] [address] | | | | | [phone] | [phone] | | | | | | | [...] [place] | | | | | | [address] | | | | | | | | +--------+---------+ + + + | 11/24/ | Office | Cardiology | [place], | | | 2019 | Visit | | SINDHU Erickson [address] | | | | | | [place], | | | | | | [place] [address] | | | | | | [phone] | | | | | | | | +--------+---------+ + + + documented as of this encounter Visit Diagnoses Not on filedocumented in this encounter"
--- OUTSIDE RECORDS SUMMARY | ~2019-01-15 | XMS | Encounter Summary ---
Demographics + + + | Address | [address] | | | [place] [address] | + + + | Home Phone [...] Team Providers + +------+ + | Care Folder Seamer Automatic Name | Role | Phone | [...] + | 09/08/ | Office | [facility] | Kevin Sandoval, | COPD (chronic | | 2015 | Visit | PULMONARY [address] | MD [address] | obstructive | | | | [place], | [place], [place] | pulmonary disease) | | | | [place] [address] | [address] | ([facility]) (Primary Dx); | | | | [phone] | | GARRY (obstructive | | | [...] your ankles gets worse Dizziness or weakness 8811-9629 [employer]. [address] [place] [address]. All righ ts reserved. This information is [...] duct (pouch) (HCC) 10/28/2012 Overview: Managed by [facility] [...] d 99 months. Please send order to [facility]., Disp: 1 each, Rfl: 0 Respiratory Therapy Supplies MISC, Change CPAP back to 11-14 cm H2O. All necessary supplies . No oxygen bleed in. Diagnosis Code(s)327.23. Length of Need: Lifetime. Please send order t [facility]. This is not a [...] | | | | [place] | | | | | | [address] | | | | | | | | +--------+---------+ + + + | 10/01/ | Office | Cardiology | [place], | | | 2019 | Visit | | SINDHU Erickson [address] | | | | | | [place], | | | | | | [place] [address] | | | | | | [phone] | | | | | | | [...]
--- OUTSIDE RECORDS SUMMARY | ~2019-01-15 | XMS | Encounter Summary ---
Demographics + + + | Address | [address] | | | [place] [address] | + + + | Home Phone [...] Providers + +------+ + | Care It Field Technician Name | Role | Phone [...] [address] | | | | | [place], | [place] | | | | | [place] [address] | [address] | | | | | [phone] | | | +--------+ + + + [...] [place] | | | | | | [address] | | | | | | | | +--------+---------+ + + + | 11/24/ | Office | Cardiology | [place], | | | 2019 | Visit | | SINDHU Erickson [address] | | | | | | [place], | | | | | | [place] [address] | | | | | | [phone] | | | | | | | | +--------+---------+ + + + documented as of this encounter Visit Diagnoses Not on filedocumented in this encounter"
--- OUTSIDE RECORDS SUMMARY | ~2019-01-15 | XMS | Encounter Summary ---
Demographics + + + | Address | [address] | | | [place] [address] | + + + | Home Phone [...] Team Providers + +------+ + | Care Vamp Seamer Name | Role | Phone | + [...] + | 10/05/ | Telephone | [facility] | Sharonda Delmycaitie, | Referral | | 2013 | | CARDIOLOGY [address] | [address] [place] | | | | | [place], | [place], | | | | | [place] [address] | [place] [address] | | | | | [phone] | [phone] | | | | | | | [...] | | | | | | [place] [address] | | | | | | [phone] | | | | | | | | +--------+---------+ + + + documented as of this encounter Visit Diagnoses Not on filedocumented in this encounter"
--- OUTSIDE RECORDS SUMMARY | ~2019-01-15 | XMS | Encounter Summary ---
Demographics + + + | Address | [address] | | | [place] [address] | + + + | Home Phone [...] + +------+ + | Care Manager Of Health Name | Role | Phone | [...] + | 08/15/ | Telephone | [facility] | Jared Mcdonough, | Other (new issues) | | 2014 | | CARDIOLOGY [address] | [address] [place] | | | | | [place], | [place], | | | | | [place] [address] | [place] [address] | | | | | [phone] | [phone] | | | | | | | [...] | | | | | | [place] [address] | | | | | | [phone] | | | | | | | | +--------+---------+ + + + documented as of this encounter Visit Diagnoses Not on filedocumented in this encounter"
--- OUTSIDE RECORDS SUMMARY | ~2019-01-15 | XMS | Encounter Summary ---
Demographics + + + | Address | [address] | | | [place] [address] | + + + | Home Phone [...] Providers + +------+ + | Care Project Builder Name | Role | Phone | [...] | | | | [facility] | [address] | [address] | | | | | EXERCISE | [place], | [place] | | | | | | [place] [address] | [place], [place] | | | | | | Phone: | [address] | | | | | | [phone] | Phone: | | | | | | Fax: | [phone] | | | | | | [phone] | Fax: | | | | | | | [phone] | +--------+--------+ + + + + Encounter Details +--------+---------+ + + + | Date | Type | Department | Care Team | Description | +--------+---------+ + + + | 08/20/ | Office | [facility] | Jared Mcdonough, | Chronic obstructive | | 2017 | Visit | MED CTR CARDIAC | [address] | pulmonary disease, | | | | REHABILITATION [address] [place], | unspecified COPD | | | | [address] [place] | [place] [address] | type (HCC) (Primary | | | | [place] [address] | [phone] | Dx) | | | | [phone] | | | +--------+---------+ + + + [...] [place] | | | | | | [address] | | | | | | | | +--------+---------+ + + + | 11/24/ | Office | Cardiology | [place], | | | 2019 | Visit | | SINDHU Erickson [address] | | | | | | [place], | | | | | | [place] [address] | | | | | | [phone] | | | | | | | | +--------+---------+ + + + documented as of this encounter Visit Diagnoses + + | Diagnosis | + + | Chronic obstructive pulmonary disease, unspecified COPD type (HCC) - Primary | + + documented in this encounter"
--- OUTSIDE RECORDS SUMMARY | ~2019-01-15 | XMS | Encounter Summary ---
Demographics + + + | Address | [address] | | | [place] [address] | + + + | Home Phone [...] Providers + +------+ + | Care Certified Ophthalmic Technician Name | Role | Phone | [...] W | | | | | | [place], | | | | | | [place] [address] | | | | | | [phone] | | | +--------+ + + + [...] Speech Pathologist - 06/27/2016 11:26 AM [facility] [address] [facility] [address] Cancellation/No Show Date: 06/27/2016 Patient Information Patient [...] [place] | | | | | | [id number] | | | | | | | | +--------+---------+ + + + | 11/24/ | Office | Cardiology | [place], | | | 2019 | Visit | | SINDHU Erickson [address] | | | | | | [place] | | | | | | [place] [address] | | | | | | [phone] | | | | | | | | +--------+---------+ + + + documented as of this encounter Visit Diagnoses Not on filedocumented in this encounter"
--- OUTSIDE RECORDS SUMMARY | ~2019-01-15 | XMS | Encounter Summary ---
Demographics + + + | Address | [address] | | | [place] [address] | + + + | Home Phone [...] Providers + +------+ + | Care Physician Practice Manager Name | Role | Phone | [...] + + | 05/28/ | Office | [facility] | Kade Hoffman MD | COPD exacerbation | | 2013 | Visit | CARE [address] | [address] | ([facility]) (Primary Dx) | | | | [place] | [place] | | | | | [address] | [address] | | | | | [phone] | | | +--------+---------+ + + + [...] prednisone, add zithromax FU 3 days with white metal corrosion proofer. documented in this enc ounter Plan of [...] [place] | | | | | | [address] | | | | | | | | +--------+---------+ + + + | 11/24/ | Office | Cardiology | [place], | | | 2019 | Visit | | SINDHU Erickson [address] | | | | | | [place], | | | | | | [place] [address] | | | | | | [phone] | | | | | | | | +--------+---------+ + + + documented as of this encounter Visit Diagnoses + + | Diagnosis | + + | COPD exacerbation (HCC) - Primary Obstructive chronic bronchitis with exacerbation | + + documented in this encounter
--- OUTSIDE RECORDS SUMMARY | ~2019-01-15 | XMS | Encounter Summary ---
Demographics + + + | Address | [address] | | | [place] [address] | + + + | Home Phone [...] Team Providers + +------+ + | Care Spray Maker Name | Role | Phone | [...] | | | | | | [place], | | | | | | [place] [address] | | | | | | [phone] | | | +--------+ + + + [...] Speech Pathologist - 06/27/2016 11:26 AM [facility] [address] [facility] [address] Cancellation/No Show Date: 06/27/2016 Patient Information Patient [...] [place] | | | | | | [id number] | | | | | | | | +--------+---------+ + + + | 11/24/ | Office | Cardiology | [place], | | | 2019 | Visit | | SINDHU Erickson [address] | | | | | | [place] | | | | | | [place] [address] | | | | | | [phone] | | | | | | | | +--------+---------+ + + + documented as of this encounter Visit Diagnoses Not on filedocumented in this encounter"
--- OUTSIDE RECORDS SUMMARY | ~2019-01-15 | XMS | Encounter Summary ---
Demographics + + + | Address | [address] | | | [place] [address] | + + + | Home Phone [...] Team Providers + +------+ + | Care Thermoplastic Technician Name | Role | Phone | [...] | | [place] | [address] [facility] | | | | | [address] | [place] [address] | | | | | [phone] | [phone] | | | | | | | [...] [place] | | | | | | [address] | | | | | | | | +--------+---------+ + + + | 11/24/ | Office | Cardiology | [place], | | | 2019 | Visit | | SINDHU Erickson [address] | | | | | | [place], | | | | | | [place] [address] | | | | | | [phone] | | | | | | | | +--------+---------+ + + + documented as of this encounter Visit Diagnoses Not on filedocumented in this encounter"
--- OUTSIDE RECORDS SUMMARY | ~2019-01-15 | XMS | Encounter Summary ---
Demographics + + + | Address | [address] | | | [place] [address] | + + + | Home Phone [...] Team Providers + +------+ + | Care Room Service Waiter/Waitress Name | Role | Phone | [...] + | 08/15/ | Telephone | [facility] | Jared Mcdonough, | Other (new issues) | | 2014 | | CARDIOLOGY [address] | [address] [place] | | | | | [place], | [place], | | | | | [place] [address] | [place] [address] | | | | | [phone] | [phone] | | | | | | | [...] [place] | | | | | | [address] | | | | | | | | +--------+---------+ + + + | 11/24/ | Office | Cardiology | [place], | | | 2019 | Visit | | SINDHU Erickson [address] | | | | | | [place], | | | | | | [place] [address] | | | | | | [phone] | | | | | | | | +--------+---------+ + + + documented as of this encounter Visit Diagnoses Not on filedocumented in this encounter"
--- OUTSIDE RECORDS SUMMARY | ~2019-01-15 | XMS | Encounter Summary ---
Demographics + + + | Address | [address] | | | [place] [address] | + + + | Home Phone [...] Providers + +------+ + | Care Top Steep Tender Name | Role | Phone | [...] | | | | | [address] [place] | | | | | | [place] [address] | | | | | | [phone] | | | +--------+ + + + [...] Weber, PT - [facility]25[facility]2014 10[facility] [address] [place] [address] Physical Therapy Discharge Note Date: 02/25/2014 Patient [...] [place] | | | | | | [id number] | | | | | | | | +--------+---------+ + + + | 11/24/ | Office | Cardiology | Flores, | | | 2019 | Visit | | SINDHU Erickson [address] | | | | | | [place], | | | | | | [place] [address] | | | | | | [phone] | | | | | | | | +--------+---------+ + + + documented as of this encounter Visit Diagnoses Not on filedocumented in this encounter"
--- OUTSIDE RECORDS SUMMARY | ~2019-01-15 | XMS | Encounter Summary ---
Demographics + + + | Address | [address] | | | [place] [address] | + + + | Home Phone [...] Team Providers + +------+ + | Care Buffet Manager Name | Role | Phone | [...] [address] | | | | | [place], | [place], | | | | | [place] [address] | [place] [address] | | | | | [phone] | [phone] | | | | | | | [...] | | | | [address] [place], [place] | | | | | | [address] | | | | | | | | +--------+---------+ + + + | 11/24/ | Office | Cardiology | Flores, | | | 2019 | Visit | | SINDHU Erickson [address] | | | | | | [place], | | | | | | [place] [address] | | | | | | [phone] | | | | | | | [...]
--- OUTSIDE RECORDS SUMMARY | ~2019-01-15 | XMS | Encounter Summary ---
Demographics + + + | Address | [address] | | | [place] [address] | + + + | Home Phone [...] Team Providers + +------+ + | Care Perl Programmer Name | Role | Phone | + +------+ + | Juan Cherry DO | PCP | | + +------+ + Encounter Details +--------+ + + + + | Date | Type | Department | Care Team | Description | +--------+ + + + + | 04/02/ | Hospital | [facility] | Dio Yun | | | 2017 | Encounter | MED CTR NUCLEAR | MD Jesus [address] | | | | | MEDICINE [address] | [place] [address] | | | | | [place], | [place], [place] | | | | | [place] [address] | [address] | | | | | [phone] | [phone] | | | | | | | [...] | 0 | 10/13/19 | | | Wngkuivsbs-GAVK-Flcm | mouth as needed. | | | 16 | 7 | | -Cod [id number] MG | | | | | | [...] | | | | | | [place] [address] | | | | | | [phone] | | | | | | | [...] + + | Performing | Address | City/State/[facility] [[email or web address] | Phone Number | | Organization | | | | + +---------+ + + | [facility] | | | | + +---------+ + + documented in this encounter Visit Diagnoses Not on filedocumented in this encounter
--- OUTSIDE RECORDS SUMMARY | ~2019-01-15 | XMS | Encounter Summary ---
Demographics + + + | Address | [address] | | | [place] [address] | + + + | Home Phone [...] Providers + +------+ + | Care Plate Washer Name | Role | Phone | [...] | | | | [facility] | [address] | [address] | | | | | EXERCISE | [place], | [place] | | | | | | [place] [address] | [place], [place] | | | | | | Phone: | [address] | | | | | | [phone] | Phone: | | | | | | Fax: | [phone] | | | | | | [phone] | Fax: | | | | | | | [phone] | +--------+--------+ + + + + Encounter Details +--------+---------+ + + + | Date | Type | Department | Care Team | Description | +--------+---------+ + + + | 07/23/ | Office | [facility] | Jared Mcdonough, | Chronic obstructive | | 2017 | Visit | MED CTR CARDIAC | MD Migdalia King | pulmonary disease, | | | | REHABILITATION [address] [place], | unspecified COPD | | | | [address] [place] | [place] [address] | type (HCC) (Primary | | | | [place] [address] | [phone] | Dx); Mild persistent | | | | [phone] | | asthma without | | | [...] [place] | | | | | | [address] | | | | | | | | +--------+---------+ + + + | 11/24/ | Office | Cardiology | [place], | | | 2019 | Visit | | SINDHU Erickson [address] | | | | | | [place], | | | | | | [place] [address] | | | | | | [phone] | | | | | | | [...]
--- OUTSIDE RECORDS SUMMARY | ~2019-01-15 | XMS | Encounter Summary ---
Demographics + + + | Address | [address] | | | [place] [address] | + + + | Home Phone [...] Providers + +------+ + | Care Machine Spreader Name | Role | Phone | + +------+ + | Juan Cherry DO | PCP | | + +------+ + Encounter Details +--------+ + + + + | Date | Type | Department | Care Team | Description | +--------+ + + + + | 04/02/ | Hospital | [facility] | Dio Yun | | | 2017 | Encounter | MED CTR NUCLEAR | MD Jesus [address] | | | | | MEDICINE [address] | [address] | | | | | [place], | [place], [place] | | | | | [place] [address] | [address] | | | | | [phone] | [phone] | | | | | | | [...] | 0 | 10/13/19 | | | Vyjppvzebe-CYQS-Nxxr | mouth as needed. | | | 16 | 7 | | -Cod [id number] MG | | | | | | [...] | | | | | [address] [place] | | | | | | [address] | | | | | | | | +--------+---------+ + + + | 11/24/ | Office | Cardiology | Flores, | | | 2019 | Visit | | SINDHU Erickson [address] | | | | | | [place], | | | | | | [place] [address] | | | | | | [phone] | | | | | | | [...]
--- OUTSIDE RECORDS SUMMARY | ~2019-01-15 | XMS | Encounter Summary ---
Demographics + + + | Address | [address] | | | [place] [address] | + + + | Home Phone [...] Providers + +------+ + | Care Machine Hostler Name | Role | Phone | + [...] | cystitis (Primary | | | | [place], [place] | [address] [place] | Dx) | | | | [address] | [place] [address] | | | | | [phone] | [phone] | | | | | | | [...] [place] | | | | | | [address] | | | | | | | | +--------+---------+ + + + | 11/24/ | Office | Cardiology | Flores, | | | 2019 | Visit | | SINDHU Erickson [address] | | | | | | [place], | | | | | | [place] [address] | | | | | | [phone] | | | | | | | | +--------+---------+ + + + documented as of this encounter Visit Diagnoses + + | Diagnosis | + + | Interstitial cystitis - Primary Chronic interstitial cystitis | + + documented in this encounter"
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
--- OUTSIDE RECORDS SUMMARY | ~2019-01-15 | XMS | Encounter Summary ---
Demographics + + + | Address | [address] | | | [place] [address] | + + + | Home Phone [...] Team Providers + +------+ + | Care Wrapper Caser Name | Role | Phone | + +------+ + | Juan Cherry DO | PCP | | + +------+ + Encounter Details +--------+---------+ + + + | Date | Type | Department | Care Team | Description | +--------+---------+ + + + | 08/17/ | Office | [facility] | Meghan Garcia MD | GARRY (obstructive | | 2018 | Visit | SLEEP DISORDER [address] | [address] | sleep apnea) | | | | [address] [place] | [place] | (Primary Dx); C[place] | | | | [place] [address] | [address] | (central sleep | | | | [phone] | | apnea); Insufficient | | | [...] years before she was switched to bilevel [id number]. I reviewed the notes from Dr Chris Alarcon in [place], [place].It indicates that patient had CPAP intolerance [...] day for h er COPD through her beet topper. We performed a CPAP titration study on [...] time spent below SpO2 of 90% was0%.Transcutaneous SU4qjkfpy 35-37mmHg during supine wake,a nd remained between [...] higher. [facility], and also excessive daytime sleepiness. Though [...] breaths does not meet criteria for an railroad track mechanic ea or hypopnea. REVELANT MEDICATIONS: Gabapentin, prednisone, tramadol, Ziprasidone. SUBJECTIVE: The patient rated sleep quality during sleep study as usual. Blasting Clay Miner note: Patient continues to struggle with mask [...] Leak. I s ent a prescription to [facility] for nasal mask and chin strap. I also discussed the impact of the sleep deprivation on her health, and excessive daytime s leepiness. She has minimal physical activity. She does some chores, and then she watches [employer] or is on her computer from 3 [...] book, or do some g uided meditation ([employer]) in part of her living room that [...] [place] | | | | | | [address] | | | | | | | | +--------+---------+ + + + | 11/24/ | Office | Cardiology | Flores, | | | 2019 | Visit | | SINDHU Erickson [address] | | | | | | [place], | | | | | | [place] [address] | | | | | | [phone] | | | | | | | [...]
--- OUTSIDE RECORDS SUMMARY | ~2019-01-15 | XMS | Encounter Summary ---
Demographics + + + | Address | [address] | | | [place] [address] | + + + | Home Phone [...] Team Providers + +------+ + | Care Drafter Seismograph Name | Role | Phone | + +------+ + PCP | Unavailable | + +------+ + Encounter Details +--------+ + + + + | Date | Type | Department | Care Team | Description | +--------+ + + + + | 06/09/ | Hospital | [facility] | [place], | | | 2009 | Encounter | MED CTR EMERGENCY | Ozzy Kim MD [address] | | | | | [place] [address] | [address] [facility] | | | | | [place], [place] | [place] [address] | | | | | [address] | [phone] | | | | | [phone] | | | +--------+ + + + [...] [place] | | | | | | [id number] | | | | | | | | +--------+---------+ + + + | 11/24/ | Office | Cardiology | Flores, | | | 2019 | Visit | | SINDHU Erickson [address] | | | | | | [place] | | | | | | [place] [address] | | | | | | [phone] | | | | | | | | +--------+---------+ + + + documented as of this encounter Visit Diagnoses Not on filedocumented in this encounter"
--- OUTSIDE RECORDS SUMMARY | ~2019-01-15 | XMS | Encounter Summary ---
Demographics + + + | Address | [address] | | | [place] [address] | + + + | Home Phone [...] Team Providers + +------+ + | Care Railroad Mechanic Name | Role | Phone | [...] + + | 11/20/ | Office | [facility] | Dre Gibson MD | Diverticulitis | | 2013 | Visit | CARE [address] | [address] | (Primary Dx); | | | | [place], [place] | [place] | Abdominal pain | | | | [address] | [address] | | | | | [phone] | | | +--------+---------+ + + + [...] color of the stools) Unexpected vaginal bleeding [address] [place] [address]. All rights reserve d. This information is [...] | | | | [place], [place] | | | | | | [address] | | | | | | | | +--------+---------+ + + + | 11/24/ | Office | Cardiology | [place], | | | 2019 | Visit | | SINDHU Erickson [address] | | | | | | [place], | | | | | | [place] [address] | | | | | | [phone] | | | | | | | [...] | 1.010 | | | | | [place], | | | | | | [facility], [...]
--- OUTSIDE RECORDS SUMMARY | ~2019-01-15 | XMS | Encounter Summary ---
Demographics + + + | Address | [address] | | | [place] [address] | + + + | Home Phone [...] Providers + +------+ + | Care Clinical Education Consultant Name | Role | Phone | [...] | CARDIOLOGY [address] | [address] | (Primary Dx) | | | | [place], | [place], | | | | | [place] [address] | [place] [address] | | | | | [phone] | [phone] | | | | | | | [...] She is in a class II of [place] [employer] functi onal class. There is [...] ventricular function don e at the [facility]. LVEF 78%. C. Holter Monitor [...] months. Electronically signed by: Jared Mcdonough MD [facility] 03/17/2014 Portions of this chart may have been created with [employer] voice recognition software. Occasi onal wrong-word [...] [place] | | | | | | [address] | | | | | | | | +--------+---------+ + + + | 11/24/ | Office | Cardiology | [place], | | | 2020 | Visit | | SINDHU Erickson [address] | | | | | | [place], | | | | | | [place] [address] | | | | | | [phone] | | | | | | | | +--------+---------+ + + + documented as of this encounter Visit Diagnoses + + | Diagnosis | + + | Other chest pain - Primary | + + documented in this encounter
--- OUTSIDE RECORDS SUMMARY | ~2019-01-15 | XMS | Encounter Summary ---
Demographics + + + | Address | [address] | | | [place] [address] | + + + | Home Phone [...] Team Providers + +------+ + | Care Logistics Research Engineer Name | Role | Phone | + +------+ + | Juan Cherry DO | PCP | | + +------+ + Encounter Details +--------+ + + + + | Date | Type | Department | Care Team | Description | +--------+ + + + + | 02/21/ | Abstract | [facility] [place] | [place], | | | 2013 | | CARDIOLOGY [address] | SINDHU Erickson [address] | | | | | [place], | [place], | | | | | [place] [address] | [place] [address] | | | | | [phone] | [phone] | | | | | | | [...] [place] | | | | | | [address] | | | | | | | | +--------+---------+ + + + | 11/24/ | Office | Cardiology | Flores, | | | 2019 | Visit | | SINDHU Erickson [address] | | | | | | [place] | | | | | | [place] [address] | | | | | | [phone] | | | | | | | | +--------+---------+ + + + documented as of this encounter Visit Diagnoses Not on filedocumented in this encounter"
--- OUTSIDE RECORDS SUMMARY | ~2019-01-15 | XMS | Encounter Summary ---
Demographics + + + | Address | [address] | | | [place] [address] | + + + | Home Phone [...] Team Providers + +------+ + | Care Airborne Sensor Specialist Name | Role | Phone | + +------+ + PCP | Unavailable | + +------+ + Encounter Details +--------+ + + + + | Date | Type | Department | Care Team | Description | +--------+ + + + + | 03/04/ | Hospital | [facility] | Jason Carvajal, | | | 2010 - | Encounter | MED CTR MED ONC | [address] | | | | | [address] [place] | [address] [place] | | | 03/06/ | | [place] [address] | [address] | | | 2010 | | [phone] | | | +--------+ + + + [...] [place] | | | | | | [address] | | | | | | | | +--------+---------+ + + + | 11/24/ | Office | Cardiology | Flores, | | | 2019 | Visit | | SINDHU Erickson [address] | | | | | | [place], | | | | | | [place] [address] | | | | | | [phone] | | | | | | | | +--------+---------+ + + + documented as of this encounter Visit Diagnoses Not on filedocumented in this encounter"
--- OUTSIDE RECORDS SUMMARY | ~2019-01-15 | XMS | Encounter Summary ---
Demographics + + + | Address | [address] | | | [place] [address] | + + + | Home Phone [...] + +------+ + | Care Belt Builder Helper Name | Role | Phone | [...] [address] | | | | | [place], | [place] | | | | | [place] [address] | [address] | | | | | [phone] | | | +--------+--------+ + + + [...] [place] | | | | | | [address] | | | | | | | | +--------+---------+ + + + | 11/24/ | Office | Cardiology | [place], | | | 2019 | Visit | | SINDHU Erickson [address] | | | | | | [place] | | | | | | [place] [address] | | | | | | [phone] | | | | | | | | +--------+---------+ + + + documented as of this encounter Visit Diagnoses Not on filedocumented in this encounter"
--- OUTSIDE RECORDS SUMMARY | ~2019-01-15 | XMS | Encounter Summary ---
Demographics + + + | Address | [address] | | | [place] [address] | + + + | Home Phone [...] Team Providers + +------+ + | Care Pickup Driver Name | Role | Phone | [...] [address] | | | | | [place], | [place] | | | | | [place] [address] | [address] | | | | | [phone] | | | +--------+ + + + [...] [place] | | | | | | [address] | | | | | | | | +--------+---------+ + + + | 11/24/ | Office | Cardiology | [place], | | | 2019 | Visit | | SINDHU Erickson [address] | | | | | | [place], | | | | | | [place] [address] | | | | | | [phone] | | | | | | | | +--------+---------+ + + + documented as of this encounter Visit Diagnoses Not on filedocumented in this encounter"
--- OUTSIDE RECORDS SUMMARY | ~2019-01-15 | XMS | Encounter Summary ---
Demographics + + + | Address | [address] | | | [place] [address] | + + + | Home Phone [...] Providers + +------+ + | Care Power Tool Repair Technician Name | Role | Phone | + +------+ + | Juan Cherry DO | PCP | | + +------+ + Encounter Details +--------+ + + + + | Date | Type | Department | Care Team | Description | +--------+ + + + + | 02/08/ | Abstract | [facility] [place] | [place], | | | 2013 | | CARDIOLOGY [address] | SINDHU Erickson [address] | | | | | [place], | [place], | | | | | [place] [address] | [place] [address] | | | | | [phone] | [phone] | | | | | | | [...] [place] | | | | | | [address] | | | | | | | | +--------+---------+ + + + | 11/24/ | Office | Cardiology | [place], | | | 2019 | Visit | | SINDHU Erickson [address] | | | | | | [place] | | | | | | [place] [address] | | | | | | [phone] | | | | | | | | +--------+---------+ + + + documented as of this encounter Visit Diagnoses Not on filedocumented in this encounter"
--- OUTSIDE RECORDS SUMMARY | ~2019-01-15 | XMS | Encounter Summary ---
Demographics + + + | Address | [address] | | | [place] [address] | + + + | Home Phone [...] Team Providers + +------+ + | Care Aquarium Tank Attendant Name | Role | Phone | [...] + + | 11/08/ | Office | [facility] | Lencho Astorga, | Axillary abscess | | 2015 | Visit | CARE [address] | [address] | (Primary Dx) | | | | [place] | [place] | | | | | [address] | [address] | | | | | [phone] | | | +--------+---------+ + + + [...] [place] | | | | | | [address] | | | | | | | | +--------+---------+ + + + | 11/24/ | Office | Cardiology | [place], | | | 2019 | Visit | | SINDHU Erickson [address] | | | | | | [place] | | | | | | [place] [address] | | | | | | [phone] | | | | | | | | +--------+---------+ + + + documented as of this encounter Visit Diagnoses + + | Diagnosis | + + | Axillary abscess - Primary Cellulitis and abscess of upper arm and forearm | + + documented in this encounter"
--- OUTSIDE RECORDS SUMMARY | ~2019-01-15 | XMS | Encounter Summary ---
Demographics + + + | Address | [address] | | | [place] [address] | + + + | Home Phone [...] Team Providers + +------+ + | Care Tiller Man Name | Role | Phone | [...] | | | | | [address] [place] | | | | | | [place] [address] | | | | | | [phone] | | | +--------+ + + + [...] Weber, PT - [facility] [address] [place] [address] Physical Therapy Discharge Note Date: 02/14/2014 Patient [...] | | | | | | [place] [address] | | | | | | [phone] | | | | | | | | +--------+---------+ + + + documented as of this encounter Visit Diagnoses Not on filedocumented in this encounter"
--- OUTSIDE RECORDS SUMMARY | ~2019-01-15 | XMS | Encounter Summary ---
Demographics + + + | Address | [address] | | | [place] [address] | + + + | Home Phone [...] Providers + +------+ + | Care Consulting Group Analyst Name | Role | Phone | [...] + + | 09/06/ | Telephone | [facility] | Kevin Sandoval, | Other (increased | | 2014 | | PULMONARY [address] | MD [address] | shortness of breath) | | | | [place], | [place], [place] | | | | | [place] [address] | [address] | | | | | [phone] | | | +--------+ + + + [...] [place] | | | | | | [address] | | | | | | | | +--------+---------+ + + + | 11/24/ | Office | Cardiology | [place], | | | 2019 | Visit | | SINDHU Erickson [address] | | | | | | [place], | | | | | | [place] [address] | | | | | | [phone] | | | | | | | | +--------+---------+ + + + documented as of this encounter Visit Diagnoses Not on filedocumented in this encounter"
--- OUTSIDE RECORDS SUMMARY | ~2019-01-15 | XMS | Encounter Summary ---
Demographics + + + | Address | [address] | | | [place] [address] | + + + | Home Phone [...] Providers + +------+ + | Care Occupational Health Rn Name | Role | Phone | [...] + + | 09/26/ | Telephone | [facility] | Kevin Sandoval, | Other (increased | | 2015 | | PULMONARY [address] | MD [address] | shortness of breath) | | | | [place], | [place], [place] | | | | | [place] [address] | [address] | | | | | [phone] | | | +--------+ + + + [...] [place] | | | | | | [address] | | | | | | | | +--------+---------+ + + + | 11/24/ | Office | Cardiology | [place], | | | 2019 | Visit | | SINDHU Erickson [address] | | | | | | [place], | | | | | | [place] [address] | | | | | | [phone] | | | | | | | | +--------+---------+ + + + documented as of this encounter Visit Diagnoses Not on filedocumented in this encounter"
--- OUTSIDE RECORDS SUMMARY | ~2019-01-15 | XMS | Encounter Summary ---
Demographics + + + | Address | [address] | | | [place] [address] | + + + | Home Phone [...] Providers + +------+ + | Care Sleep Lab Technician Name | Role | Phone [...] NEPHROLOGY [address] | MD [address] | Dx) | | | | [address] | [address] [place] | | | | | [place], [place] | [place] [address] | | | | | [address] | [phone] | | | | | [phone] | | | +--------+ + + + [...] possible bacterial bronchitis till pt sees her equipment or machinery cleaner. Pt was agreeable with plan. documented in [...] [place] | | | | | | [address] | | | | | | | | +--------+---------+ + + + | 11/24/ | Office | Cardiology | Flores, | | | 2019 | Visit | | SINDHU Erickson [address] | | | | | | [place], | | | | | | [place] [address] | | | | | | [phone] | | | | | | | | +--------+---------+ + + + documented as of this encounter Visit Diagnoses + + | Diagnosis | + + | Bronchitis - Primary Bronchitis, not specified as acute or chronic | + + documented in this encounter"
--- OUTSIDE RECORDS SUMMARY | ~2019-01-15 | XMS | Encounter Summary ---
Demographics + + + | Address | [address] | | | [place] [address] | + + + | Home Phone [...] Team Providers + +------+ + | Care Pet Technologist Name | Role | Phone | [...] | RN | | | | | [place], | | | | | | [place] [address] | | | | | | [phone] | | | +--------+ + + + [...] | | | | Jose R [place] | | | | | | [address] | | | | | | | | +--------+---------+ + + + | 11/24/ | Office | Cardiology | [place], | | | 2019 | Visit | | SINDHU Erickson [address] | | | | | | [place], | | | | | | [place] [address] | | | | | | [phone] | | | | | | | | +--------+---------+ + + + documented as of this encounter Visit Diagnoses Not on filedocumented in this encounter"
--- OUTSIDE RECORDS SUMMARY | ~2019-01-15 | XMS | Encounter Summary ---
Demographics + + + | Address | [address] | | | [place] [address] | + + + | Home Phone [...] Providers + +------+ + | Care Physician Primary Care Sports Medicine Name | Role | Phone | [...] + + | 09/17/ | Telephone | [facility] | Kevin Sandoval, | Other (increased | | 2013 | | PULMONARY [address] | MD [address] | shortness of breath) | | | | [place], | [place], [place] | | | | | [place] [address] | [address] | | | | | [phone] | | | +--------+ + + + [...] [place] | | | | | | [address] | | | | | | | | +--------+---------+ + + + | 11/24/ | Office | Cardiology | [place], | | | 2019 | Visit | | SINDHU Erickson [address] | | | | | | [place], | | | | | | [place] [address] | | | | | | [phone] | | | | | | | | +--------+---------+ + + + documented as of this encounter Visit Diagnoses Not on filedocumented in this encounter"
--- OUTSIDE RECORDS SUMMARY | ~2019-01-15 | XMS | Encounter Summary ---
Demographics + + + | Address | [address] | | | [place] [address] | + + + | Home Phone [...] Providers + +------+ + | Care Hearing Aid Specialist Name | Role | Phone | [...] | | [place] | [facility] | | | | | [address] | [place] [address] | | | | | [phone] | [phone] | | | | | | | [...] [place] | | | | | | [address] | | | | | | | | +--------+---------+ + + + | 11/24/ | Office | Cardiology | [place], | | | 2019 | Visit | | SINDHU Erickson [address] | | | | | | [place], | | | | | | [place] [address] | | | | | | [phone] | | | | | | | | +--------+---------+ + + + documented as of this encounter Visit Diagnoses Not on filedocumented in this encounter"
--- OUTSIDE RECORDS SUMMARY | ~2019-01-15 | XMS | Encounter Summary ---
Demographics + + + | Address | [address] | | | [place] [address] | + + + | Home Phone [...] Team Providers + +------+ + | Care Pond [place] Name | Role | Phone | [...] + | 03/01/ | Telephone | [facility] | Jared Mcdonough, | Other (having pain | | 2015 | | CARDIOLOGY [address] | [address] | after heart cath) | | | | [place], | [place], | | | | | [place] [address] | [place] [address] | | | | | [phone] | [phone] | | | | | | | [...] | | | | | | [place] [address] | | | | | | [phone] | | | | | | | | +--------+---------+ + + + documented as of this encounter Visit Diagnoses Not on filedocumented in this encounter"
--- OUTSIDE RECORDS SUMMARY | ~2019-01-15 | XMS | Encounter Summary ---
Demographics + + + | Address | [address] | | | [place] [address] | + + + | Home Phone [...] Providers + +------+ + | Care Scientific Illustrator Name | Role | Phone | [...] | obstruction, not | | | | [place], | | elsewhere classified | | | | [place] [address] | | ([facility]) | | | | [phone] | | | +--------+ + + + [...] [place] | | | | | | [address] | | | | | | | | +--------+---------+ + + + | 11/24/ | Office | Cardiology | [place], | | | 2019 | Visit | | SINDHU Erickson [address] | | | | | | [place], | | | | | | [place] [address] | | | | | | [phone] | | | | | | | | +--------+---------+ + + + documented as of this encounter Visit Diagnoses + + | Diagnosis | + + | Chronic airway obstruction, not elsewhere classified | + + documented in this encounter"
--- OUTSIDE RECORDS SUMMARY | ~2019-01-15 | XMS | Encounter Summary ---
Demographics + + + | Address | [address] | | | [place] [address] | + + + | Home Phone [...] Providers + +------+ + | Care Mud Jack Nozzle Worker Name | Role | Phone | [...] + + | 05/30/ | Office | [facility] | Jamaledgardo Jared, | Chronic obstructive | | 2017 | Visit | MED CTR CARDIAC | MD Migdalia King | pulmonary disease, | | | | REHABILITATION [address] | [place], | unspecified COPD | | | | [address] [place] | [place] [address] | type (HCC) (Primary | | | | [place] [address] | [phone] | Dx); Pulmonary | | | | [phone] | | emphysema, | | | | [...] Desean Chris - 05/30/2016 3:38 PM PDT [facility] CARDIAC REHABILITATION [address] [place] [address] Cardiac Rehab Date: 05/30/2016 Patient Information Patient [...] | | | | Jose [place] | | | | | | [address] | | | | | | | | +--------+---------+ + + + | 11/24/ | Office | Cardiology | [place], | | | 2019 | Visit | | SINDHU Erickson [address] | | | | | | [place], | | | | | | [place] [address] | | | | | | [phone] | | | | | | | | +--------+---------+ + + + documented as of this encounter Visit Diagnoses + + | Diagnosis | + + | Chronic obstructive pulmonary disease, unspecified COPD type (HCC) - Primary | + + | Pulmonary emphysema, unspecified emphysema type (HCC) | + + documented in this encounter"
--- OUTSIDE RECORDS SUMMARY | ~2019-01-15 | XMS | Encounter Summary ---
Demographics + + + | Address | [address] | | | [place] [address] | + + + | Home Phone [...] Providers + +------+ + | Care Crossing Supervisor Name | Role | Phone | [...] + + | 10/16/ | Office | [facility] | [place], | Tachycardia (Primary | | 2017 | Visit | CARDIOLOGY [address] | SINDHU Erickson [address] | Dx); Paroxysmal | | | | [place], | [place], | atrial tachycardia | | | | [place] [address] | [place] [address] | (HCC) | | | | [phone] | [phone] | | | | | | | [...] differen t from the original. PATIENT NAME: Rosraio Malik : 1965: AGE: 51 y.o. PRIMARY [...] HOSPITAL. 1 each 0 Respiratory Therapy Supplies [facility] Change CPAP back to 11-14 cm H2O. All necessary suppl ies. No oxygen bleed in. Diagnosis Code(s)327.23. Length of Need: Lifetime. Please send orde r to [facility]. This is not a new [...] longer present Confirmed by RAFA WELLS MD ([id number]) on 08/06/2015 9:42:29 AM LAB RESULTS reviewed during visit today primarily from [facility]: LIPID Lab Results Component Value Date [...] seen at the ED of [facility] 3 weeks ago and again [...] She is in a class II of [place] [employer] functional class. [...] entricular function done at the [facility]. LVEF 78%. C. Holter Monitor [...] this chart may have been created with [employer] voice recognition software. Occasi onal wrong-word or [...] [place] | | | | | | [address] | | | | | | | | +--------+---------+ + + + | 11/24/ | Office | Cardiology | [place], | | | 2019 | Visit | | SINDHU Erickson [address] | | | | | | [place], | | | | | | [place] [address] | | | | | | [phone] | | | | | | | [...] Juan | | | DO CAMILLE Cherry CONTRACT DESIGNER: Clay Mcdonough MD | | | 48-HOUR [...] | | Signed by: Clay Mcdonough MD [facility] 10/18/2016, | | | 10:51 | [...] | | | | | by DANIEL APUL, CLAY | | | | | | ([id number]) on 10/16/2016 | | | | | [...]
--- OUTSIDE RECORDS SUMMARY | ~2019-01-15 | XMS | Encounter Summary ---
Demographics + + + | Address | [address] | | | [place] [address] | + + + | Home Phone [...] Providers + +------+ + | Care Editor Magazine Name | Role | Phone | + [...] Provider Unknown | | | | | [place], [place] | [phone] | | | | | [address] | | | | | | [phone] | | | +--------+ + + + [...] | | | Jose R [address] [facility] | | | | | | [address] | | | | | | | | +--------+---------+ + + + | 11/24/ | Office | Cardiology | [place], | | | 2019 | Visit | | SINDHU Erickson [address] | | | | | | [place], | | | | | | [place] [address] | | | | | | [phone] | | | | | | | [...]
--- OUTSIDE RECORDS SUMMARY | ~2019-01-15 | XMS | Encounter Summary ---
Demographics + + + | Address | [address] | | | [place] [address] | + + + | Home Phone [...] Providers + +------+ + | Care Yard Assistant Name | Role | Phone | + +------+ + | Juan Cherry DO | PCP | | + +------+ + Encounter Details +--------+---------+ + + + | Date | Type | Department | Care Team | Description | +--------+---------+ + + + | 10/22/ | Office | [facility] | Jared Mcdonough, | Chronic obstructive | | 2017 | Visit | MED CTR CARDIAC | [address] | pulmonary disease, | | | | REHABILITATION [address] | [place], | unspecified COPD | | | | [place] | [place] [address] | type (HCC) (Primary | | | | [place] [address] | [phone] | Dx); Mild persistent | | | | [phone] | | asthma without | | | [...] | | | | | | [place] [address] | | | | | | [phone] | | | | | | | [...]
--- OUTSIDE RECORDS SUMMARY | ~2019-01-15 | XMS | Encounter Summary ---
Demographics + + + | Address | [address] | | | [place] [address] | + + + | Home Phone [...] Team Providers + +------+ + | Care Buckle Stringer Name | Role | Phone | [...] + + | 11/22/ | Emergency | [facility] | Bishop Alatorre, | Acute post-operative | | 2016 | | MED CTR EMERGENCY | [place] [address] | pain (Primary Dx); | | | | CENTER [address] [place] | [place] | Bladder pain | | | | [place] | [address] | | | | | [address] | | | | | | [phone] | | | +--------+ + + + [...] sent through Care Everywhere.PAIN MANAGEMENT AFTER SURGERY (WOLOF)documented in this encounter Medications at Time of [...] | 0 | 10/13/19 | | | Hpyuvbatul-JOBY-Sdwl | mouth as needed. | | | 16 | 7 | | -Cod [id number] MG | | | | | | [...] [place] | | | | | | [address] | | | | | | | | +--------+---------+ + + + | 11/24/ | Office | Cardiology | [place] | | | 2019 | Visit | | SINDHU Erickson [address] | | | | | | [place], | | | | | | [place] [address] | | | | | | [phone] | | | | | | | [...] | | | | | Starting [facility] 11/23/15 at 1927 | | | | | | + + + + +------+------+ +---+---+ | | | +---+---+ documented in this encounter
--- OUTSIDE RECORDS SUMMARY | ~2019-01-15 | XMS | Encounter Summary ---
Demographics + + + | Address | [address] | | | [place] [address] | + + + | Home Phone [...] Team Providers + +------+ + | Care Slasher Hand Name | Role | Phone | [...] + + | 02/09/ | Office | [facility] | Kevin Sandoval, | COPD exacerbation | | 2013 | Visit | PULMONARY [address] | [address] | ([facility]) (Primary Dx); | | | | [place], | [place], [place] | COPD (chronic | | | | [place] [address] | [address] | obstructive | | | | [phone] | | pulmonary disease) | | | | | | ([facility]); Central sleep | | | [...] nd it. Keep your chin up. 3. [place] 1 puff into the spacer by pressing [...] your mouth.) 3. Keep your chin up. [place] 1 puff by pressing down on the [...] it in a dry p lace. The [employer]. [address] [place] [address]. All righ ts reserved. This information is [...] patient was an emergency department at the [facility]. The patient has required [...] have not [facility]. The patient does cough chronically, and [...] (pouch) (HCC) 10/28/2012 Overview: Managed by [facility] [...] Need: Lifetime. Please send order t [facility]. This is not a [...] | | | | [place] | | | | | | [address] | | | | | | | | +--------+---------+ + + + | 11/24/ | Office | Cardiology | [place], | | | 2020 | Visit | | SINDHU Erickson [address] | | | | | | [place], | | | | | | [place] [address] | | | | | | [phone] | | | | | | | [...]
--- OUTSIDE RECORDS SUMMARY | ~2019-01-15 | XMS | Encounter Summary ---
Demographics + + + | Address | [address] | | | [place] [address] | + + + | Home Phone [...] Providers + +------+ + | Care Engine Inspector Name | Role | Phone | [...] + + | 10/04/ | Office | [facility] | Kevin Sandoval, | COPD (chronic | | 2013 | Visit | PULMONARY [address] | MD [address] | obstructive | | | | [place], | [place], [place] | pulmonary disease) | | | | [place] [address] | [address] | ([facility]) (Primary Dx); | | | | [phone] | | Hypoxemia | +--------+---------+ + + [...] not start to improve within 24 hours 9107-9981 Rafael Perez, [address] [place] [address], [place] [address]. All rights reserve d. This information is [...] evaluated in the emergency department of the [facility]. The second exacerbation occurred in early August and resulted in hospitalization at the . Treatment with prednisone and anti biotics occurred. Rosario was hospitalized for approximately 4 days. She was discharged o n supplemental oxygen and instructed to use it 24 hours a day. She also apparently had an i ncreased heart rate which was evaluated by inside wireman. The patient was treated with digox in. [...] ([facility]) 10/28/2012 Overview: Managed by [facility] along with hypothyroidism Osteoarthritis Tachycardia Social [...] | | | | | Jose [place], [place] | | | | | | [address] | | | | | | | | +--------+---------+ + + + | 11/24/ | Office | Cardiology | [place], | | | 2019 | Visit | | SINDHU Erickson [address] | | | | | | [place], | | | | | | [place] [address] | | | | | | [phone] | | | | | | | | +--------+---------+ + + + documented as of this encounter Visit Diagnoses + + | Diagnosis | + + | COPD (chronic obstructive pulmonary disease) (HCC) - Primary Chronic airway | | obstruction, not elsewhere classified | + + | Hypoxemia | + + documented in this encounter
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
--- OUTSIDE RECORDS SUMMARY | ~2019-01-15 | XMS | Encounter Summary ---
Demographics + + + | Address | [address] | | | [place] [address] | + + + | Home Phone [...] Team Providers + +------+ + | Care Batch Analyst Name | Role | Phone | [...] | | | | CENTER [address] | [address] [place] | carried out due to | | | | [place] | [place] [address] | patient leaving | | | | [address] | [phone] | prior to being seen | | | | [phone] | | by health care | | [...] [place] | | | | | | [address] | | | | | | | | +--------+---------+ + + + | 11/24/ | Office | Cardiology | [place], | | | 2019 | Visit | | SINDHU Erickson [address] | | | | | | [place], | | | | | | [place] [address] | | | | | | [phone] | | | | | | | [...] W?MRN: | | | | | | [id number] | | | [id number] | | | his | | | [...]
--- OUTSIDE RECORDS SUMMARY | ~2019-01-15 | XMS | Encounter Summary ---
Demographics + + + | Address | [address] | | | [place] [address] | + + + | Home Phone [...] Team Providers + +------+ + | Care Release Engineer Name | Role | Phone [...] + + | 01/24/ | Telephone | [facility] | Jared Mcdonough, | Other (prescription | | 2013 | | CARDIOLOGY [address] | MD [address] | clarification) | | | | [place], | [place], | | | | | [place] [address] | [place] [address] | | | | | [phone] | [phone] | | | | | | | [...] [place] | | | | | | [address] | | | | | | | | +--------+---------+ + + + | 11/24/ | Office | Cardiology | [place], | | | 2019 | Visit | | SINDHU Erickson [address] | | | | | | [place], | | | | | | [place] [address] | | | | | | [phone] | | | | | | | | +--------+---------+ + + + documented as of this encounter Visit Diagnoses Not on filedocumented in this encounter"
--- OUTSIDE RECORDS SUMMARY | ~2019-01-15 | XMS | Encounter Summary ---
Demographics + + + | Address | [address] | | | [place] [address] | + + + | Home Phone [...] Team Providers + +------+ + | Care Window Caser Name | Role | Phone | + +------+ + | Juan Cherry DO | PCP | | + +------+ + Encounter Details +--------+ + + + + | Date | Type | Department | Care Team | Description | +--------+ + + + + | 09/09/ | Hospital | [facility] GENER[facility] IP | Conversion | Pain | | 2015 | Encounter | CONVERSION [address] | Transaction, | | | | | [address] | Provider Unknown | | | | | [place], [place] | [phone] | | | | | [address] | | | | | | [phone] | | | +--------+ + + + [...] | | | Jose [place] Snow [facility] | | | | | | [address] | | | | | | | | +--------+---------+ + + + | 11/24/ | Office | Cardiology | [place], | | | 2019 | Visit | | SINDHU Erickson [address] | | | | | | [place], | | | | | | [place] [address] | | | | | | [phone] | | | | | | | [...]
--- OUTSIDE RECORDS SUMMARY | ~2019-01-15 | XMS | Encounter Summary ---
Demographics + + + | Address | [address] | | | [place] [address] | + + + | Home Phone [...] Providers + +------+ + | Care Group President Name | Role | Phone | [...] 03/28/ | Refill | [facility] | nAdriy Weber | Medication Refill | | 2017 | | [address] | MD [address] | | | | | [place] | [facility] | | | | | [address] | [place] [address] | | | | | [phone] | [phone] | | | | | | | [...] [place] | | | | | | [address] | | | | | | | | +--------+---------+ + + + | 11/24/ | Office | Cardiology | [place], | | | 2019 | Visit | | SINDHU Erickson [address] | | | | | | [place], | | | | | | [place] [address] | | | | | | [phone] | | | | | | | | +--------+---------+ + + + documented as of this encounter Visit Diagnoses Not on filedocumented in this encounter"
--- OUTSIDE RECORDS SUMMARY | ~2019-01-15 | XMS | Encounter Summary ---
Demographics + + + | Address | [address] | | | [place] [address] | + + + | Home Phone [...] Providers + +------+ + | Care Warehouse Representative Name | Role | Phone | + +------+ + PCP | Unavailable | + +------+ + Encounter Details +--------+ + + + + | Date | Type | Department | Care Team | Description | +--------+ + + + + | 05/30/ | [facility] | [facility] | | | | 2009 - | Encounter | MED CTR OP REHAB | | | | | | [address] [place] | | | | 06/23/ | | [place] [address] | | | | 2009 | | [phone] | | | +--------+ + + + [...] [place] | | | | | | [address] | | | | | | | | +--------+---------+ + + + | 11/24/ | Office | Cardiology | [place], | | | 2020 | Visit | | SINDHU Erickson [address] | | | | | | [place], | | | | | | [place] [address] | | | | | | [phone] | | | | | | | | +--------+---------+ + + + documented as of this encounter Visit Diagnoses Not on filedocumented in this encounter"
--- OUTSIDE RECORDS SUMMARY | ~2019-01-15 | XMS | Encounter Summary ---
Demographics + + + | Address | [address] | | | [place] [address] | + + + | Home Phone [...] Providers + +------+ + | Care Quality Tech Name | Role | Phone | [...] | Concussion | Aaron Kim MD | Director Of Valuation [address] | | | Required | | with brief | [address] | [place] | | | | | loss of | [address] | [place], [place] | | | | | consciousnes | [place], | [address] | | | | | s Word | [place] [address] | Phone: | | | | | finding | Phone: | [phone] | | | | | difficulty | [phone] | Fax: | | | | | [id number] | Fax: | [phone] | | | | | (ICD-10-CM) | [phone] | | | | | | - [...] + + | 08/14/ | Hospital | [facility] | Aaron Rodriguez, | Concussion with | | 2017 | Encounter | MED CTR SPEECH | MD [address] | brief (less than one | | | | THERAPY [address] | [place], [place] | hour) loss of | | | | [place], | [address] | consciousness | | | | [place] [address] | | (Primary Dx); | | | | [phone] | Kathi Soto, | Impaired memory; | [...] | 0 | 10/13/19 | | | Goejkgkiaf-ZBOZ-Kjxd | mouth as needed. | | | 16 | 7 | | -Cod [id number] MG | | | | | | [...] Speech Pathologist - 08/15/2016 8:51 AM PDT [facility] SPEECH THERAPY [address] [facility] [address] Speech Therapy Progress Assessment Date: 08/14/2016 Patient Information Patient Name: Rosario Malik Date of : 1965 Age: 51 y.o. History Encounter Diagnoses Code Name Primary? 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 OP EVAL from 05/16/2016 in [facility] SPEECH THERAPY O ffice Visit from 05/01/2016 in [facility] THERAPY PT OP Learning Style Patient's Optimum [...] Patient Caregiver's Ability to Manage Condition: 2 TUCKING MACHINE OPERATOR G-Codes Functional Assessment Tool Used: NOMS Functional [...] From: 08/16/2016 Certification To: 11/16/2016 Treatment Plan/Interventions 22572 - Cognitive [id number] - Cognitive [id number] - Speech/Hearing Treatment Patient and/or family has [...] [place] | | | | | | [address] | | | | | | | | +--------+---------+ + + + | 11/24/ | Office | Cardiology | [place], | | | 2019 | Visit | | SINDHU Erickson [address] | | | | | | [place], | | | | | | [place] [address] | | | | | | [phone] | | | | | | | [...]
--- OUTSIDE RECORDS SUMMARY | ~2019-01-15 | XMS | Encounter Summary ---
Demographics + + + | Address | [address] | | | [place] [address] | + + + | Home Phone [...] +------+ + | Care Food And Beverage Controller Name | Role | Phone | + +------+ + PCP | Unavailable | + +------+ + Encounter Details +--------+ + + + + | Date | Type | Department | Care Team | Description | +--------+ + + + + | 07/31/ | Hospital | [facility] | Abigail Ozzie | | | 2010 | Encounter | MED CTR EMERGENCY | MD Ran [address] | | | | | SELENE [address] | [address] [facility] | | | | | [place], [place] | [place] [address] | | | | | [address] | [phone] | | | | | [phone] | | | +--------+ + + + [...] [place] | | | | | | [address] | | | | | | | | +--------+---------+ + + + | 11/24/ | Office | Cardiology | [place], | | | 2019 | Visit | | SINDHU Erickson [address] | | | | | | [place], | | | | | | [place] [address] | | | | | | [phone] | | | | | | | [...] - 1.030 | [facility] | | | [place] | | | [facility] | | [...] | [facility] | [address] | [place] | [phone] | | [facility] | | [address] | | | - LABORATORY | | | | + + + + + | [facility] | [address] | [place] | | | [facility] | | [address] | | | - LABORATORY | | [...] | [facility] | [address] | [place] | [phone] | | [facility] | | [address] | | | - LABORATORY | | | | + + + + + | [facility] | [address] | [place], [place] | | | [facility] | | [address] | | | - LABORATORY | | [...] | | | | | | [facility] | | | | | [...] | [facility] | [address] | [place], [place] | [phone] | | [facility] | | [address] | | | - LABORATORY | | | | + + + + + | [facility] | [address] | [place], [place] | | | [facility] | | [address] | | | - LABORATORY | | [...] | + + + + + | [facility] | [address] | [place], [place] | [phone] | | [facility] | | [address] | | | - LABORATORY | | | | + + + + + | [facility] | [address] | [place], [place] | | | [facility] | | [address] | | | - LABORATORY | | | | + + + + + CT Abdomen Pelvis w Contrast (07/31/2010 2:22 AM PDT) + + | Specimen | + + | | + + + + + | Narrative | Performed At | + + + | [facility] Diagnostic Imaging Department | [facility] | | [address] [facility] | [facility] | | CT ABDOMEN AND PELVIS WITH [...] Transcribed Date/Time: 07/31/2010 | | | 10:29 Supervisor Toy Assembly: <Electronically Signed by Lencho Reynolds | | | MD Shira> 07/31/10 1718 | | + + + + + | Procedure Note | + + | Roger Mcbride Conversion - 04/02/2013 3:05 PM [facility] | | Diagnostic Imaging Department [address] [facility] | | CT ABDOMEN AND [...] 08:28 | |Transcribed Date/Time: 07/31/2010 10:29 | |Supervisor Toy Assembly: | |<Electronically Signed by Lencho Silva MD> [...]
--- OUTSIDE RECORDS SUMMARY | ~2019-01-15 | XMS | Encounter Summary ---
Demographics + + + | Address | [address] | | | [place] [address] | + + + | Home Phone [...] Providers + +------+ + | Care Legal Mediator Name | Role | Phone | + [...] sleep | MD [address] | | | | | apnea) | [address] | [place], | | | | | Central | [place], | [place] [address] | | | | | sleep apnea | [place] [address] | Phone: | | | | | | | [phone] | | | | | | | Fax: | | | | | | | [phone] | +--------+ + + + + + [...] | sleep apnea) | | | | [address] [place], | | (Primary Dx); | | | | [place] [address] | | Central sleep apnea; | | | | [phone] | | COPD exacerbation | | | [...] cancer Colonoscopy 03/2010 Colonoscopy: 1995 at [facility] Social History: History Social History Marital Status: Single Spouse Name: N/A Number of Children: 1 Years of Education: 13 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
--- OUTSIDE RECORDS SUMMARY | ~2019-01-15 | XMS | Encounter Summary ---
Demographics + + + | Address | [address] | | | [place] [address] | + + + | Home Phone [...] Providers + +------+ + | Care Ladle Liner Helper Name | Role | Phone | [...] + + | 06/09/ | Office | [facility] | Kevin Sandoval, | COPD (chronic | | 2015 | Visit | PULMONARY [address] | MD [address] | obstructive | | | | [place], | [place], [place] | pulmonary disease) | | | | [place] [address] | [address] | (HCC) (Primary Dx); | | | | [phone] | | Hypoxemia (HCC); GARRY | | [...] car. Draw. Do a puzzle. Build a birdvidCoin. Delay. The urge to smoke lasts only [...] of these could help you quit smoking. [id number] [employer]. [address] [place] [address]. All righ ts reserved. This information is [...] for a COPD exacerbation since our last [facility] appointment. Pulmonary last clinic appointment Rosario decreased [...] [facility] 10/[facility]2012 Overview: Managed by [facility] [...] Please send order to [facility]., Disp: 1 each, Rfl: 0, Respiratory Therapy Supplies MISC, Change CPAP back to 11-14 cm H2O. All necessary supplies . No oxygen bleed in. Diagnosis Code(s)327.23. Length of Need: Lifetime. Please send order t bony [facility]. This is not a [...] | | | | [place] | | | | | | [address] | | | | | | | | +--------+---------+ + + + | 11/24/ | Office | Cardiology | [place], | | | 2019 | Visit | | SINDHU Erickson [address] | | | | | | [place], | | | | | | [place] [address] | | | | | | [phone] | | | | | | | [...]
--- OUTSIDE RECORDS SUMMARY | ~2019-01-15 | XMS | Encounter Summary ---
Demographics + + + | Address | [address] | | | [place] [address] | + + + | Home Phone [...] Providers + +------+ + | Care Collections Analyst Name | Role | Phone | [...] [address] | | | | | [place], | [place] | | | | | [place] [address] | [address] | | | | | [phone] | | | +--------+--------+ + + + [...] [place] | | | | | | [address] | | | | | | | | +--------+---------+ + + + | 11/24/ | Office | Cardiology | [place], | | | 2019 | Visit | | SINDUH Erickson [address] | | | | | | [place] | | | | | | [place] [address] | | | | | | [phone] | | | | | | | | +--------+---------+ + + + documented as of this encounter Visit Diagnoses Not on filedocumented in this encounter"
--- OUTSIDE RECORDS SUMMARY | ~2019-01-15 | XMS | Encounter Summary ---
Demographics + + + | Address | [address] | | | [place] [address] | + + + | Home Phone [...] Providers + +------+ + | Care Jet Pilot Name | Role | Phone | + +------+ + PCP | Unavailable | + +------+ + Encounter Details +--------+ + + + + | Date | Type | Department | Care Team | Description | +--------+ + + + + | 07/26/ | Hospital | [facility] | Elda Miranda | | | 2010 | Encounter | MED CTR LABORATORY | MD Hafsa [address] | | | | | [address] [place] | [address] [place] | | | | | [place], [place] | [place] [address] | | | | | [address] | [phone] | | | | | [phone] | | | +--------+ + + + [...] [place] | | | | | | [address] | | | | | | | | +--------+---------+ + + + | 11/24/ | Office | Cardiology | [place], | | | 2019 | Visit | | SINDHU Erickson [address] | | | | | | [place], | | | | | | [place] [address] | | | | | | [phone] | | | | | | | [...] + | [facility] [facility] | [address] | [place], [place] | [phone] | | [facility] | | [address] | | | - LABORATORY | | | | + + + + + | [facility] [facility] | [address] | [place], [place] | | | [facility] | | [address] | | | - LABORATORY | | [...] - 1.030 | [facility] | | | [place] | | | [facility] | | [...] ST. | [address] | [place], [place] | [phone] | | [facility] | | [address] | | | - LABORATORY | | | | + + + + + | [facility] | [address] | [place] | | | [facility] | | [address] | | | - LABORATORY | | | | + + + + + documented in this encounter Visit Diagnoses Not on filedocumented in this encounter"
--- OUTSIDE RECORDS SUMMARY | ~2019-01-15 | XMS | Encounter Summary ---
Demographics + + + | Address | [address] | | | [place] [address] | + + + | Home Phone [...] Team Providers + +------+ + | Care Comb Winder Name | Role | Phone | [...] | | | | | pulmonary | [address] | n [address] | | | | | disease, | [place], | [address] [place] | | | | | unspecified | [place] [address] | [place], [place] | | | | | COPD type | Phone: | [address] | | | | | (HCC) | [phone] | Phone: | | | | | Pulmonary | Fax: | [phone] | | | | | emphysema, | [phone] | Fax: | | | | | unspecified | | [phone] | | | | | emphysema | | | | | | | type ([facility]) | | | +--------+ + + + + + Encounter Details +--------+---------+ + + + | Date | Type | Department | Care Team | Description | +--------+---------+ + + + | 05/21/ | Office | [facility] | Sharonda Delmycaitie, | Chronic obstructive | | 2017 | Visit | MED CTR CARDIAC | [address] | pulmonary disease, | | | | REHABILITATION [address] | [address] [place], | unspecified COPD | | | | [address] [place] | [place] [address] | type (HCC) (Primary | | | | [place] [address] | [phone] | Dx) | | | | [phone] | | | +--------+---------+ + + + [...] as of this encounter Progress Tricia Rahman, GIS SOFTWARE ENGINEER - 05/21/2016 10:37 AM PDT [facility] [address] [place] [address] Cardiac Rehab Date: 05/21/2016 Patient Information Patient [...] | | | | [place] | | | | | | [address] | | | | | | | | +--------+---------+ + + + | 11/24/ | Office | Cardiology | Flasher, | | | 2019 | Visit | | GeorginaSINDHU reynoso [address] | | | | | | [place], | | | | | | [place] [address] | | | | | | [phone] | | | | | | | | +--------+---------+ + + + documented as of this encounter Visit Diagnoses + + | Diagnosis | + + | Chronic obstructive pulmonary disease, unspecified COPD type (HCC) - Primary | + + documented in this encounter"
--- OUTSIDE RECORDS SUMMARY | ~2019-01-15 | XMS | Encounter Summary ---
Demographics + + + | Address | [address] | | | [place] [address] | + + + | Home Phone [...] Groin pain, | MD Jared | [address] | | | | | right Hx | [address] | [place], | | | | | of coronary | [address] | [place] [address] | | | | | angiogram | [place], | Phone: | | | | | Peritoneal | [place] [address] | [phone] | | | | | bleeding | Phone: | Fax: | | | | | Procedures | [phone] | [phone] | | | | | CT Abdomen | Fax: | | | | | | Pelvis wo | [phone] | | | | | | Contrast [...] + | 03/07/ | Telephone | [facility] | Sharonda Delmycaitie, | Other ([facility] | | 2015 | | CARDIOLOGY [address] | MD [address] | painful) | | | | [address] [place], | [place], | | | | | [place] [address] | [place] [address] | | | | | [phone] | [phone] | | | | | | | [...] [place] | | | | | | [address] | | | | | | | | +--------+---------+ + + + | 11/24/ | Office | Cardiology | [place], | | | 2019 | Visit | | SINDHU Erickson [address] | | | | | | [place], | | | | | | [place] [address] | | | | | | [phone] | | | | | | | [...] + | MISCELLANEOUS LAB | | | [phone] | + +---------+ + + | MISCELANIOUS LAB | | | [phone] | + +---------+ + + documented in [...]
--- OUTSIDE RECORDS SUMMARY | ~2019-01-15 | XMS | Encounter Summary ---
Demographics + + + | Address | [address] | | | [place] [address] | + + + | Home Phone [...] Providers + +------+ + | Care Assistant Surveyor Name | Role | Phone | [...] | | | | CENTER [address] | [address] | of stomach (Primary | | | | [place], [place] | [place], [place] | Dx) | | | | [address] | [address] | | | | | [phone] | | | +--------+ + + + [...] other worsening symptoms. Please follow-up with her [facility] physician. documented in this encounter Medications [...] | | | | | | | [facility]. | | | | [...] [place] | | | | | | [address] | | | | | | | | +--------+---------+ + + + | 11/24/ | Office | Cardiology | [place] | | | 2019 | Visit | | SINDHU Erickson [address] | | | | | | [place], | | | | | | [place] [address] | | | | | | [phone] | | | | | | | [...] - 1.030 | [facility] | | | [place] | | | [facility] | | [...] | | Urine | | | [facility] | | [...] [address] | [place] | [phone] | | [facility] | | [address] | | | - LABORATORY | | [...] | A preliminary report was sent by [facility] on 04/12/2015 at | | | 9:16 [...] Chanelle fundoplication.A preliminary report was sent by [facility] on 04/12/2015 at | | 9:16 PM [...] | |A preliminary report was sent by [facility] on 04/12/2015 at 9:16 PM with no [...] + | [facility] | [address] | [place] | [phone] | | [facility] | | [address] | | | - LABORATORY | | [...] | | | | | | [employer] | | | | | [...] [address] | [place] | [phone] | | [facility] | | [address] | | | - LABORATORY | | [...] | | | | [facility] | | | | | | MEDICAL [...] [address] | [place] | [phone] | | [facility] | | [address] | | | - LABORATORY | | [...] | | | FILTRATION | mL/min/1.73m2 | [facility] | | | YEMENI | RATE,ESTIMATED | | MEDICAL | | | | mL/min/1.68g1Jorb than | | CENTER - | | [...] [address] | [place] | [phone] | | [facility] | | [address] | | | - LABORATORY | | [...] | + + + + + | [facility] [facility] | [address] | [place] | [phone] | | [facility] | | [address] | | | - LABORATORY | | [...] | | | | RAFA WELLS MD ([id number]) | | | | | | on [...]
--- OUTSIDE RECORDS SUMMARY | ~2019-01-15 | XMS | Encounter Summary ---
Demographics + + + | Address | [address] | | | [place] [address] | + + + | Home Phone [...] Providers + +------+ + | Care Solar Energy Consultant And Designer Name | Role | Phone | [...] Alonso MD | | | | | [place], | | | | | | [place] [address] | | | | | | [phone] | | | +--------+--------+ + + + [...] | 2019 | Visit | | [address] | | | | | | [place] | | | | | | [address] | | | | | | | | +--------+---------+ + + + | 11/24/ | Office | Cardiology | [place], | | | 2019 | Visit | | SINDHU Erickson [address] | | | | | | [place] | | | | | | [place] [address] | | | | | | [phone] | | | | | | | | +--------+---------+ + + + documented as of this encounter Visit Diagnoses Not on filedocumented in this encounter"
--- OUTSIDE RECORDS SUMMARY | ~2019-01-15 | XMS | Encounter Summary ---
Demographics + + + | Address | [address] | | | [place] [address] | + + + | Home Phone [...] Providers + +------+ + | Care Fuel House Attendant Name | Role | Phone | + +------+ + | Juna Cherry DO | PCP | | + +------+ + Encounter Details +--------+ + + + + | Date | Type | Department | Care Team | Description | +--------+ + + + + | 04/02/ | Hospital | [facility] | Dio Yun | | | 2017 | Encounter | MED CTR NUCLEAR | MD [address] | | | | | MEDICINE [address] | [place] OLMEDO [place] [address] | | | | | [place], | [place], [place] | | | | | [place] [address] | [address] | | | | | [phone] | [phone] | | | | | | | [...] | 0 | 10/13/19 | | | Fomqkqabxh-WEJK-Bvsk | mouth as needed. | | | 16 | 7 | | -Cod [id number] MG | | | | | | [...] | | | | | | [place] [address] | | | | | | [phone] | | | | | | | [...] + + | Performing | Address | City/State/[facility] | Phone Number | | Organization | | | | + +---------+ + + | [facility] | | | | + +---------+ + + documented in this encounter Visit Diagnoses Not on filedocumented in this encounter
--- OUTSIDE RECORDS SUMMARY | ~2019-01-15 | XMS | Encounter Summary ---
Demographics + + + | Address | [address] | | | [place] [address] | + + + | Home Phone [...] Providers + +------+ + | Care Material Control Manager Name | Role | Phone [...] Alonso MD | | | | | [place], | | | | | | [place] [address] | | | | | | [phone] | | | +--------+--------+ + + + [...] [place] | | | | | | [address] | | | | | | | | +--------+---------+ + + + | 11/24/ | Office | Cardiology | [place], | | | 2019 | Visit | | SINDHU Erickson [address] | | | | | | [place] | | | | | | [place] [address] | | | | | | [phone] | | | | | | | | +--------+---------+ + + + documented as of this encounter Visit Diagnoses Not on filedocumented in this encounter"
--- OUTSIDE RECORDS SUMMARY | ~2019-01-15 | XMS | Encounter Summary ---
Demographics + + + | Address | [address] | | | [place] [address] | + + + | Home Phone [...] Team Providers + +------+ + | Care Roof Mechanic Name | Role | Phone | [...] [address] | | | | | [place], | [place] | | | | | [place] [address] | [address] | | | | | [phone] | | | +--------+--------+ + + + [...] [place] | | | | | | [address] | | | | | | | | +--------+---------+ + + + | 11/24/ | Office | Cardiology | [place], | | | 2019 | Visit | | SINDHU Erickson [address] | | | | | | [place] | | | | | | [place] [address] | | | | | | [phone] | | | | | | | | +--------+---------+ + + + documented as of this encounter Visit Diagnoses Not on filedocumented in this encounter"
--- OUTSIDE RECORDS SUMMARY | ~2019-01-15 | XMS | Encounter Summary ---
Demographics + + + | Address | [address] | | | [place] [address] | + + + | Home Phone [...] Team Providers + +------+ + | Care Umbrella Tipper Hand Name | Role | Phone | + +------+ + PCP | Unavailable | + +------+ + Encounter Details +--------+ + + + + | Date | Type | Department | Care Team | Description | +--------+ + + + + | 12/28/ | Hospital | [facility] | Ozzy Delcid, | | | 2009 - | Encounter | MED CTR OP REHAB | [address] | | | | | [address] [place] | [place] | | | 01/23/ | | [place] [address] | [address] | | | 2009 | | [phone] | | | +--------+ + + + [...] [place] | | | | | | [address] | | | | | | | | +--------+---------+ + + + | 11/24/ | Office | Cardiology | [place], | | | 2019 | Visit | | SINDHU Erickson [address] | | | | | | [place], | | | | | | [place] [address] | | | | | | [phone] | | | | | | | | +--------+---------+ + + + documented as of this encounter Visit Diagnoses Not on filedocumented in this encounter"
--- OUTSIDE RECORDS SUMMARY | ~2019-01-15 | XMS | Encounter Summary ---
Demographics + + + | Address | [address] | | | [place] [address] | + + + | Home Phone [...] Team Providers + +------+ + | Care Broadcast Operations Manager Name | Role | Phone [...] | | | | | pulmonary | [address] | [address] | | | | | disease, | [place], | [address] [place] | | | | | unspecified | [place] [address] | [place], [place] | | | | | COPD type | Phone: | [address] | | | | | (HCC) | [phone] | Phone: | | | | | Pulmonary | Fax: | [phone] | | | | | emphysema, | [phone] | Fax: | | | | | unspecified | | [phone] | | | | | emphysema | | | | | | | type ([facility]) | | | +--------+ + + + + + Encounter Details +--------+---------+ + + + | Date | Type | Department | Care Team | Description | +--------+---------+ + + + | 05/14/ | Office | [facility] | Jared Mcdonough, | Chronic obstructive | | 2017 | Visit | MED CTR CARDIAC | [address] | pulmonary disease, | | | | REHABILITATION [address] | [address] [place], | unspecified COPD | | | | [address] [place] | [place] [address] | type (HCC) (Primary | | | | [place] [address] | [phone] | Dx); Pulmonary | | | | [phone] | | emphysema, | | | | [...] Desean Chris - 05/14/2016 3:39 PM PDT [facility] CARDIAC REHABILITATION [address] [place] [address] Cardiac Rehab Date: 05/14/2016 Patient Information Patient [...] | | | | [place] | | | | | | [address] | | | | | | | | +--------+---------+ + + + | 11/24/ | Office | Cardiology | [place], | | | 2019 | Visit | | SINDHU Erickson [address] | | | | | | [place], | | | | | | [place] [address] | | | | | | [phone] | | | | | | | | +--------+---------+ + + + documented as of this encounter Visit Diagnoses + + | Diagnosis | + + | Chronic obstructive pulmonary disease, unspecified COPD type (HCC) - Primary | + + | Pulmonary emphysema, unspecified emphysema type (HCC) | + + documented in this encounter"
--- OUTSIDE RECORDS SUMMARY | ~2019-01-15 | XMS | Encounter Summary ---
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 I reviewed the notes from Dr Chris Alarcon in [place], [place].It indicates that patient had CPAP intolerance [...] day f or her COPD through her shank carrier. We performed a CPAP titration study on [...] spen t below SpO2 of 90% was0%.Transcutaneous FJ9fwyria 35-37mmHg during supine wake, and remained between [...] Historical Provider, Yinka Witt Respiratory Therapy Supplies [facility] Please provide patient with necessary CPAP supplies (she did not specify, okay to send order as appropriate) Diagnosis Code(s)327.23 . Length of Need 99 months. Please send order to [facility]. 01/13/13 Yes Loreta London MD Respiratory Therapy Supplies [facility] Change CPAP back to 11-14 cm H2O. All necessary supplies. No oxygen bleed in. Diagnosis Code(s)327.23. Length of Need: Lifetime. Please send order to [facility]. This is [...] her awakenings at night, I will ask Quinton to check her machine for adjusting humidity [...] this chart may have been created with [employer] voice recognition software. Occasi onal wrong-word or [...] | | | | [place] | | | | | | [address] | | | | | | | | +--------+---------+ + + + | 11/24/ | Office | Cardiology | [place], | | | 2019 | Visit | | SINDHU Erickson [address] | | | | | | [place], | | | | | | [place] [address] | | | | | | [phone] | | | | | | | [...]
--- OUTSIDE RECORDS SUMMARY | ~2019-01-15 | XMS | Encounter Summary ---
Demographics + + + | Address | [address] | | | [place] [address] | + + + | Home Phone [...] Team Providers + +------+ + | Care Drain Technician Name | Role | Phone | [...] [address] | | | | | [place], | [place] | | | | | [place] [address] | [address] | | | | | [phone] | | | +--------+--------+ + + + [...] [place] | | | | | | [address] | | | | | | | | +--------+---------+ + + + | 11/24/ | Office | Cardiology | [place], | | | 2019 | Visit | | SINDHU Erickson [address] | | | | | [place], | | | | | | [place] [address] | | | | | | [phone] | | | | | | | | +--------+---------+ + + + documented as of this encounter Visit Diagnoses + + | Diagnosis | + + | COPD (chronic obstructive pulmonary disease) (HCC) - Primary Chronic airway | | obstruction, not elsewhere classified | + + documented in this encounter"
--- OUTSIDE RECORDS SUMMARY | ~2019-01-15 | XMS | Encounter Summary ---
Demographics + + + | Address | [address] | | | [place] [address] | + + + | Home Phone [...] | | | [place] | [facility] | | | | | [address] | [place] [address] | | | | | [phone] | [phone] | | | | | | | [...] [place] | | | | | | [address] | | | | | | | | +--------+---------+ + + + | 11/24/ | Office | Cardiology | Flores, | | | 2019 | Visit | | SINDHU Erickson [address] | | | | | | [place], | | | | | | [place] [address] | | | | | | [phone] | | | | | | | | +--------+---------+ + + + documented as of this encounter Visit Diagnoses Not on filedocumented in this encounter"
--- OUTSIDE RECORDS SUMMARY | ~2019-01-15 | XMS | Encounter Summary ---
Demographics + + + | Address | [address] | | | [place] [address] | + + + | Home Phone [...] [address] [place] | [place] [address] | | | | | [place], [place] | [phone] | | | | | [address] | | | | | | [phone] | | | +--------+ + + + [...] | | | | | | [place] [address] | | | | | | [phone] | | | | | | | | +--------+---------+ + + + documented as of this encounter Visit Diagnoses + + | Diagnosis | + + | Sprain of chest wall - Primary Other specified sites of sprains and strains | + + documented in this encounter"
--- OUTSIDE RECORDS SUMMARY | ~2019-01-15 | XMS | Encounter Summary ---
Demographics + + + | Address | [address] | | | [place] [address] | + + + | Home Phone [...] Team Providers + +------+ + | Care Impregnator Helper Name | Role | Phone | [...] [address] | | | | | [place], | [place], | | | | | [place] [address] | [place] [address] | | | | | [phone] | [phone] | | | | | | | [...] [place] | | | | | | [address] | | | | | | | | +--------+---------+ + + + | 11/24/ | Office | Cardiology | Flores, | | | 2019 | Visit | | SINDHU Erickson [address] | | | | | | [place], | | | | | | [place] [address] | | | | | | [phone] | | | | | | | | +--------+---------+ + + + documented as of this encounter Visit Diagnoses Not on filedocumented in this encounter"
--- OUTSIDE RECORDS SUMMARY | ~2019-01-15 | XMS | Encounter Summary ---
Demographics + + + | Address | [address] | | | [place] [address] | + + + | Home Phone [...] Providers + +------+ + | Care Door Slinger Name | Role | Phone | [...] + + | 07/24/ | Clinical | [facility] | Andriy Weber | Bladder pain | | 2018 | Support | [address] | MD Robert [address] | (Primary Dx) | | | | [place], [place] | [facility]OM [facility] | | | | | [address] | [place] [address] | | | | | [phone] | [phone] | | | | | | | [...] clinic in 1 week for last treatment............................................ Loranie Hawkins RN on 07/24/17 at 11:06 documented [...] [place] | | | | | | 304482 | | | | | | | | +--------+---------+ + + + | 11/24/ | Office | Cardiology | Flores, | | | 2019 | Visit | | Georgina, OVEN EQUIPMENT REPAIRER [address] | | | | | | [place], | | | | | | [place] [address] | | | | | | [phone] | | | | | | | [...]
--- OUTSIDE RECORDS SUMMARY | ~2019-01-15 | XMS | Encounter Summary ---
Demographics + + + | Address | [address] | | | [place] [address] | + + + | Home Phone [...] Team Providers + +------+ + | Care Breakdown Man Name | Role | Phone | [...] | RN | | | | | [place], | | | | | | [place] [address] | | | | | | [phone] | | | +--------+ + + + [...] | | | | [place] | | | | | | [address] | | | | | | | | +--------+---------+ + + + | 11/24/ | Office | Cardiology | Flores, | | | 2019 | Visit | | SINDHU Erickson [address] | | | | | | [place], | | | | | | [place] [address] | | | | | | [phone] | | | | | | | | +--------+---------+ + + + documented as of this encounter Visit Diagnoses Not on filedocumented in this encounter"
--- OUTSIDE RECORDS SUMMARY | ~2019-01-15 | XMS | Encounter Summary ---
Demographics + + + | Address | [address] | | | [place] [address] | + + + | Home Phone [...] Team Providers + +------+ + | Care Regulatory Affairs Portfolio Leader Name | Role | Phone | [...] + + | 05/30/ | Office | [facility] | Jamaledgardo Jared, | Chronic obstructive | | 2017 | Visit | MED CTR CARDIAC | MD Migdalia King | pulmonary disease, | | | | REHABILITATION [address] | [place], | unspecified COPD | | | | [address] [place] | [place] [address] | type (HCC) (Primary | | | | [place] [address] | [phone] | Dx); Pulmonary | | | | [phone] | | emphysema, | | | | [...] Desean Chris - 05/30/2016 3:38 PM PDT [facility] [address] [place] [address] Cardiac Rehab Date: 05/30/2016 Patient Information Patient [...] | | | | [place] | | | | | | [address] | | | | | | | | +--------+---------+ + + + | 11/24/ | Office | Cardiology | Flores, | | | 2019 | Visit | | SINDHU Erickson [address] | | | | | | [place], | | | | | | [place] [address] | | | | | | [phone] | | | | | | | | +--------+---------+ + + + documented as of this encounter Visit Diagnoses + + | Diagnosis | + + | Chronic obstructive pulmonary disease, unspecified COPD type (HCC) - Primary | + + | Pulmonary emphysema, unspecified emphysema type (HCC) | + + documented in this encounter"
--- OUTSIDE RECORDS SUMMARY | ~2019-01-15 | XMS | Encounter Summary ---
Demographics + + + | Address | [address] | | | [place] [address] | + + + | Home Phone [...] Providers + +------+ + | Care Die Cutter Name | Role | Phone | [...] + + | 07/09/ | Clinical | [facility] | Andiry Weber | Bladder pain | | 2018 | Support | [address] | MD [address] | (Primary Dx) | | | | [place], [place] | [facility] | | | | | [address] | [place] [address] | | | | | [phone] | [phone] | | | | | | | [...] [place] | | | | | | [id number] | | | | | | | | +--------+---------+ + + + | 11/24/ | Office | Cardiology | Flores, | | | 2019 | Visit | | SINDHU Erickson [address] | | | | | | [place], | | | | | | [place] [address] | | | | | | [phone] | | | | | | | [...]
--- OUTSIDE RECORDS SUMMARY | ~2019-01-15 | XMS | Encounter Summary ---
Demographics + + + | Address | [address] | | | [place] [address] | + + + | Home Phone [...] Team Providers + +------+ + | Care Sensitizer Name | Role | Phone | + [...] | | | | | [place] | THOM [facility] | | | | | [address] | [place] [address] | | | | | [phone] | [phone] | | | | | | | [...] [place] | | | | | | [address] | | | | | | | | +--------+---------+ + + + | 11/24/ | Office | Cardiology | Flores, | | | 2019 | Visit | | SINDHU Erickson [address] | | | | | | [place], | | | | | | [place] [address] | | | | | | [phone] | | | | | | | | +--------+---------+ + + + documented as of this encounter Visit Diagnoses Not on filedocumented in this encounter"
--- OUTSIDE RECORDS SUMMARY | ~2019-01-15 | XMS | Encounter Summary ---
Demographics + + + | Address | [address] | | | [place] [address] | + + + | Home Phone [...] Team Providers + +------+ + | Care Unbundler Name | Role | Phone | + [...] MD | oximetry) | | | | [place], | | | | | | [place] [address] | | | | | | [phone] | | | +--------+ + + + [...] | | | | | | [place] [address] | | | | | | [phone] | | | | | | | [...]
--- OUTSIDE RECORDS SUMMARY | ~2019-01-15 | XMS | Encounter Summary ---
Demographics + + + | Address | [address] | | | [place] [address] | + + + | Home Phone [...] + +------+ + | Care Asset Protection Detective Name | Role | Phone | [...] | 02/22/ | Off-Site | [facility] [place] | [place], | Tachyarrhythmia | | 2013 | Visit | CARDIOLOGY [address] | SINDHU Erickson [address] | (Primary Dx); | | | | [place], | [place], | Palpitations; Other | | | | [place] [address] | [place] [address] | chest pain | | | | [phone] | [phone] | | | | | | | [...] other kind of bleeding. Fever over 101.0F. 9866-1794 [employer]. [address] [place] [address], [place] [address]. All righ ts reserved. This information is [...] mg by mouth Daily. Respiratory Therapy Supplies [facility] Incentive spirometer. Please provide instructions in use. Dx: 848.8 MADELEINE: 3 months 1 each 99 Respiratory Therapy Supplies [facility] Please provide patient with necessary CPAP supplies ( she did not specify, okay to send order as appropriate) Diagnosis Code(s)327.23 . Length of Need 99 months. Please send order to [facility]. 1 each 0 Respiratory Therapy Supplies [facility] [...] She is in a class II-III of [place] [employer] ation functional class. There is [...] this chart may have been created with [employer] voice recognition software. Occasi onal wrong-word or [...] | | | | | | [place] [address] | | | | | | [phone] | | | | | | | [...] Rosario Malik, (1965) MEDICAL RECORD NUMBER: | [facility] | | [id number] DATE OF PROCEDURE: 02/28/2014 NUT FORMER: | - IMAGING | | Jared Mcdonough [...] Malik, (1965) OF | | PROCEDURE: 02/28/2014PRIMARY SCHOOL PSYCHOLOGICAL EXAMINER: Jared Mcdonough MD PROCEDURES | | PERFORMED:Coronary [...] [address] | [place] | [phone] | | [facility] | | [address] | | | - IMAGING | | | | + + + + + documented in this encounter Visit Diagnoses + + | Diagnosis | + + | Tachyarrhythmia - Primary Tachycardia, unspecified | + + | Palpitations | + + | Other chest pain | + + documented in this encounter
--- OUTSIDE RECORDS SUMMARY | ~2019-01-15 | XMS | Encounter Summary ---
Demographics + + + | Address | [address] | | | [place] [address] | + + + | Home Phone [...] Providers + +------+ + | Care Supervisor Cemetery Workers Name | Role | Phone | [...] + + | 06/19/ | Emergency | [facility] | Nestor Martinez, | COPD with acute | | 2013 - | | MED CTR EMERGENCY | [address] | exacerbation (HCC) | | | | CENTER [address] | [place], [place] | (Primary Dx) | | 06/20/ | | [place] | [address] | | | 2013 | | [address] | | | | | | [phone] | Ozzie Hayes | | | | | | MD Ran [address] | | | | | | [address] [facility] | | | | | | [place] [address] | | | | | | [phone] | | | | | | | [...] | | | | [facility]. | | | | | | | [...] [place] | | | | | | [address] | | | | | | | | +--------+---------+ + + + | 11/24/ | Office | Cardiology | Flores, | | | 2019 | Visit | | SINDHU Erickson [address] | | | | | | [place], | | | | | | [place] [address] | | | | | | [phone] | | | | | | | [...]
--- OUTSIDE RECORDS SUMMARY | ~2019-01-15 | XMS | Encounter Summary ---
Demographics + + + | Address | [address] | | | [place] [address] | + + + | Home Phone [...] + +------+ + | Care Field Marketing Associate Name | Role | Phone | [...] | | | | | [address] | [place], [place] | | | | | [place], [place] | [address] | | | | | [address] | | | | | | [phone] | | | +--------+ + + + [...] +----+---+ + + | | 0 | [place] | | | | 7 | 43-degrees [...] 11/22/15 1025 by | | eral | gpqh-zjo-fubyrd catheter system; | Kelsie Gandhi RN | [...] [place] | | | | | | [address] | | | | | | | | +--------+---------+ + + + | 11/24/ | Office | Cardiology | [place], | | | 2020 | Visit | | SINDHU Erickson [address] | | | | | | [place], | | | | | | [place] [address] | | | | | | [phone] | | | | | | | [...]
--- OUTSIDE RECORDS SUMMARY | ~2019-01-15 | XMS | Encounter Summary ---
Demographics + + + | Address | [address] | | | [place] [address] | + + + | Home Phone [...] Team Providers + +------+ + | Care Mine Exploration Engineer Name | Role | Phone | [...] | | central | [address] | [place] | | | | | sleep apnea | [address] | [place], | | | | | [place] | [place], | [place] [address] | | | | | (obstructive | [place] [address] | Phone: | | | | | sleep | Phone: | [phone] | | | | | apnea) | [phone] | Fax: | | | | | Procedures | Fax: | [phone] | | | | | [place] | [phone] | | | | | | 6/>YRS [...] + + | 12/30/ | Office | [facility] | Kevin Sandoval, | COPD (chronic | | 2013 | Visit | PULMONARY [address] | MD [address] | obstructive | | | | [place], | [place], [place] | pulmonary disease) | | | | [place] [address] | [address] | (HCC) (Primary Dx); | | | | [phone] | | Hypoxemia; Central | | | [...] nd it. Keep your chin up. 3. Kellogg 1 puff into the spacer by pressing [...] your mouth.) 3. Keep your chin up. Kellogg 1 puff by pressing down on the [...] store it in a dry p lace. [id number] [facility], [address] [place] [address], [place] [address]. All rights reserve d. This information is [...] apparently in the emergency department at the [facility] a week or so ago and was [...] oxygen. They currently are using nocturnal oxygen. Asiay frank are currently on 2 LPM at [...] [facility]) 10/28/2012 Overview: Managed by [facility] along [...] send order to [facility] Disp: 1 each, Rfl: 0 Respiratory Therapy Supplies MISC, Change CPAP back to 11-14 cm H2O. All necessary supplies . No oxygen bleed in. Diagnosis Code(s)327.23. Length of Need: Lifetime. Please send order asiya [place] [facility]. This is not a new order, just [...] HOPPER | | | | | | [id number] | | | | | | | | +--------+---------+ + + + | 11/24/ | Office | Cardiology | [place], | | | 2019 | Visit | | [facility] Erickson [address] | | | | | | [place], | | | | | | [place] [address] | | | | | | [phone] | | | | | | | [...]
--- OUTSIDE RECORDS SUMMARY | ~2019-01-15 | XMS | Encounter Summary ---
Demographics + + + | Address | [address] | | | [place] [address] | + + + | Home Phone [...] Providers + +------+ + | Care Spray Pilot Name | Role | Phone | + +------+ + | Juan Cherry DO | PCP | | + +------+ + Encounter Details +--------+ + + + + | Date | Type | Department | Care Team | Description | +--------+ + + + + | 04/02/ | Hospital | [facility] | Dio Yun | | | 2017 | Encounter | MED CTR NUCLEAR | MD [address] | | | | | MEDICINE [address] | [place] OLMEDO [address] | | | | | [place], | [place], [place] | | | | | [place] [address] | [address] | | | | | [phone] | [phone] | | | | | | | [...] | 0 | 10/13/19 | | | [id number]-MAZQ-Nmtw | mouth as needed. | | | 16 | 7 | | -Cod [id number] MG | | | | | | [...] | | | | | | [place] [address] | | | | | | [phone] | | | | | | | [...] + + | Performing | Address | City/State/[facility] | Phone Number | | Organization | | | | + +---------+ + + | [facility] | | | | + +---------+ + + documented in this encounter Visit Diagnoses Not on filedocumented in this encounter
--- OUTSIDE RECORDS SUMMARY | ~2019-01-15 | XMS | Encounter Summary ---
Demographics + + + | Address | [address] | | | [place] [address] | + + + | Home Phone [...] Team Providers + +------+ + | Care Cs Associate Name | Role | Phone | [...] + + | 08/20/ | Telephone | [facility] | [place], | LABS | | 2018 | | CARDIOLOGY [address] | Georgina CYBER SECURITY CONSULTANT [address] | | | | | [place], | [place], | | | | | [place] [address] | [place] [address] | | | | | [phone] | [phone] | | | | | | | [...] [place] | | | | | | [address] | | | | | | | | +--------+---------+ + + + | 11/24/ | Office | Cardiology | Flores, | | | 2019 | Visit | | SINDHU Erickson [address] | | | | | | [place], | | | | | | [place] [address] | | | | | | [phone] | | | | | | | [...]
--- OUTSIDE RECORDS SUMMARY | ~2019-01-15 | XMS | Encounter Summary ---
Demographics + + + | Address | [address] | | | [place] [address] | + + + | Home Phone [...] Team Providers + +------+ + | Care Rehab Rn Name | Role | Phone | [...] | | | CENTER [address] [place] | | carried out because | | | | [place] | | of patient's | | | | [address] | | decision (Primary | | | | [phone] | | Dx) | +--------+ + + [...] [place] | | | | | | [id number] | | | | | | | | +--------+---------+ + + + | 11/24/ | Office | Cardiology | [place], | | | 2019 | Visit | | SINDHU Erickson [address] | | | | | | [place] | | | | | | [place] [address] | | | | | | [phone] | | | | | | | | +--------+---------+ + + + documented as of this encounter Visit Diagnoses + + | Diagnosis | + + | Surgical or other procedure not carried out because of patient's decision - Primary | + + documented in this encounter"
--- OUTSIDE RECORDS SUMMARY | ~2019-01-15 | XMS | Encounter Summary ---
Demographics + + + | Address | [address] | | | [place] [address] | + + + | Home Phone [...] Team Providers + +------+ + | Care Parish Visitor Name | Role | Phone | + [...] + + | 09/13/ | Emergency | [facility] | Alexi Guaman, | Tachycardia (Primary | | 2018 | | MED CTR EMERGENCY | MD [address] | Dx); Hypokalemia | | | | CENTER [address] | [place] | | | | | [place] | [address] | | | | | [address] | | | | | | [phone] | | | +--------+ + + + [...] sent through Care Everywhere.Hypokalemia (En glish)Tachycardia, Understanding (Welsh)documented in this encounter Medications at Time of [...] | | | | | | [place] [address] | | | | | | [phone] | | | | | | | [...] W?MRN: | | | | | | [id number] | | | [id number] | | | his | | | [...] [address] | [place] | [phone] | | [facility] | | [address] | | | - LABORATORY | | [...] | | | | [employer] | | | | | [...] [address] | [place] | [phone] | | [facility] | | [address] | | | - LABORATORY | | [...] (L) | 7 - 18 mg/dL | [facility] | | | | | | [facility] | | | | | | MEDICAL | | | | | | CENTER - | | | | | | LABORATORY | | + + + + + + | Creatinine | 0.77 | 0.60 - 1.30 | [facility] | | | | | mg/dL | [facility] | | | | | | MEDICAL | | | | | | CENTER - | | | | | | LABORATORY | | + + + + + + | eGFR if not | >60Comment: GLOMERULAR | >=60 | [facility] | | | | FILTRATION | mL/min/1.73m2 | [facility] | | | [place] | RATE,ESTIMATED | | MEDICAL | | | | mL/min/1.55u7Rrgs than | | CENTER - | | [...] + | [facility] | [address] | [place] | [phone] | | [facility] | | [address] | | | - LABORATORY | | [...] + | [facility] | [address] | [place] | [phone] | | [facility] | | [address] | | | - LABORATORY | | [...] short | | | | | | [place] though P waves are | | | [...] | | | | RAFA WELLS MD ([id number]) | | | | | | on [...]
--- OUTSIDE RECORDS SUMMARY | ~2019-01-15 | XMS | Encounter Summary ---
Demographics + + + | Address | [address] | | | [place] [address] | + + + | Home Phone [...] Providers + +------+ + | Care Financial Economist Name | Role | Phone | + +------+ + | Juan Cherry DO | PCP | | + +------+ + Encounter Details +--------+ + + + + | Date | Type | Department | Care Team | Description | +--------+ + + + + | 10/19/ | Hospital | [facility] | Kevin Sandoval, | COPD (chronic | | 2013 | Encounter | MED CTR PULMONARY | MD [address] | obstructive | | | | FUNCTION [address] | [place], [place] | pulmonary disease) | | | | [place], | [address] | (HCC) | | | | [place] [address] | | | | | | [phone] | | | +--------+ + + + [...] | | ([facility]) | every 3 days | | [...] [place] | | | | | | [address] | | | | | | | | +--------+---------+ + + + | 11/24/ | Office | Cardiology | Flores, | | | 2019 | Visit | | SINDHU Erickson [address] | | | | | | [place] | | | | | | [place] [address] | | | | | | [phone] | | | | | | | [...]
--- OUTSIDE RECORDS SUMMARY | ~2019-01-15 | XMS | Encounter Summary ---
Demographics + + + | Address | [address] | | | [place] [address] | + + + | Home Phone [...] Team Providers + +------+ + | Care Riprap Placing Supervisor Name | Role | Phone | [...] | | | | [facility] | [address] | [address] | | | | | EXERCISE | [place], | [address] [place] | | | | | | [place] [address] | [place], [place] | | | | | | Phone: | [address] | | | | | | [phone] | Phone: | | | | | | Fax: | [phone] | | | | | | [phone] | Fax: | | | | | | | [phone] | +--------+--------+ + + + + Encounter Details +--------+---------+ + + + | Date | Type | Department | Care Team | Description | +--------+---------+ + + + | 06/13/ | Office | [facility] | Sharonda Delmycaitie, | Chronic obstructive | | 2017 | Visit | MED CTR CARDIAC | MD [address] | pulmonary disease, | | | | REHABILITATION [address] | [place], | unspecified COPD | | | | [address] [place] | [place] [address] | type (HCC) (Primary | | | | [place] [address] | [phone] | Dx) | | | | [phone] | | | +--------+---------+ + + + [...] | | | [place] | | | | | | [address] | | | | | | | | +--------+---------+ + + + | 11/24/ | Office | Cardiology | Flores, | | | 2020 | Visit | | SINDHU Erickson [address] | | | | | | [place], | | | | | | [place] [address] | | | | | | [phone] | | | | | | | | +--------+---------+ + + + documented as of this encounter Visit Diagnoses + + | Diagnosis | + + | Chronic obstructive pulmonary disease, unspecified COPD type (HCC) - Primary | + + documented in this encounter"
--- OUTSIDE RECORDS SUMMARY | ~2019-01-15 | XMS | Encounter Summary ---
Demographics + + + | Address | [address] | | | [place] [address] | + + + | Home Phone [...] Providers + +------+ + | Care Stock Checkerer Name | Role | Phone | + [...] | | [place] | [facility] | | | | | [address] | [place] [address] | | | | | [phone] | [phone] | | | | | | | [...] [place] | | | | | | [address] | | | | | | | | +--------+---------+ + + + | 11/24/ | Office | Cardiology | [place], | | | 2019 | Visit | | SINDHU Erickson [address] | | | | | | [place], | | | | | | [place] [address] | | | | | | [phone] | | | | | | | | +--------+---------+ + + + documented as of this encounter Visit Diagnoses Not on filedocumented in this encounter"
--- OUTSIDE RECORDS SUMMARY | ~2019-01-15 | XMS | Encounter Summary ---
Demographics + + + | Address | [address] | | | [place] [address] | + + + | Home Phone [...] Author | [facility] | | | [...] Team Providers + +------+ + | Care Fitter Placer Name | Role | Phone | + [...] | | MD Jared | [address] | | | | | Pericarditis | [address] | [place], | | | | | Procedures | [address] | [place] | | | | | ECHO | [place], | [address] | | | | | Complete | [place] [address] | Phone: | | | | | | Phone: | [phone] | | | | | | [phone] | Fax: | | | | | | Fax: | [phone] | | | | | | [phone] | | +--------+--------+ + + + + [...] | CARDIOLOGY [address] | (Primary Dx); | | | | [place], | [place], | Palp[place]; | | | | [place] [address] | [place] [address] | Tachycardia; | | | | [phone] | [phone] | Pericarditis | | | | | [...] referred to Dr. Ding to discuss at [facility] tachycardia ablation. Patient was seen by Dr. [...] at the ED of [facility] 3 weeks ago. There was no specific [...] Take by mouth Daily. Respiratory Therapy Supplies [facility] Incentive spirometer. Please provide instructions in use. Dx: 848.8 MADELEINE: 3 months 1 each 99 Respiratory Therapy Supplies [facility] Please provide patient with necessary CPAP supplies ( she did not specify, okay to send order as appropriate) Diagnosis Code(s)327.23 . Length of Need 99 months. Please send order to [facility]. 1 each 0 Respiratory Therapy Supplies [facility] Change CPAP back to 11-14 cm H2O. [...] at the ED of [facility] 3 weeks ag o. according to the history, I suspect that she has pericarditis. However, EKG shows no ST elevation. Physical exam shows no pericardial rub. Patient states that she is allergic to NSAID's There is no signs and symptoms of overt congestive heart failure. She is in a class II of [place] [employer] functional class. There is no [...] weeks. Electronically signed by: Jared Mcdonough MD [facility] 01/11/2014 Portions of this chart may have been created with Raptr voice recognition software. Occasi onal wrong-word or [...] [place] | | | | | | [address] | | | | | | | | +--------+---------+ + + + | 11/24/ | Office | Cardiology | [place], | | | 2019 | Visit | | SINDHU Erickson [address] | | | | | | [place], | | | | | | [place] [address] | | | | | | [phone] | | | | | | | [...] Performed At | + + + | [facility] ECHOCARD[facility]GRAM REPORT | MANISTIQUE | | STUDY DATE: 01/14/2014 PATIENT NAME: Rosario Malik | [facility] | | : 1965 PCP: Juan Cherry, [facility] | | CLINICAL HISTORY/DIAGNOSIS: Pericarditis/pericardial effusion A [...] by: | | | Jared Mcdonough MD [facility] 01/14/2014 8:40 Supervisor Ski Production: | | | Charmaine Ibarra RDMS | | + + + + + | Procedure Note | + + | Jared Mcdonough MD - 01/14/2014 11:28 AM [facility] | | CENTERECHOCARDIOGRAM REPORTSTUDY DATE: 01/14/2014PATIENT NAME: Rosario AyersOB: | | 1965MRN: [id number]: EFREN GuillaumeLINICAL HISTORY/DIAGNOSIS: | | Pericarditis/pericardial effusionA [...] | mmHgLA volume: 30 mLLA index: 18 mL/z6Cjwlll Inflow DT: 262 msIVRT: 75 msValsalva: | | NegativePWDTI S wave: 8.7 cm/sPWDTI E wave: 9.0 cm/sPWDTI A wave: 11.5 cm/sE/A Ratio: | | 0.783E/E Ratio: 8.95Signed by: Jared Mcdonough MD [facility] 01/14/2014 8:40 | | Supervisor Ski Production: Charmaine Ibarra RDMS | | | | [...] | | |Signed by: Jared Mcdonough MD [facility] | | 01/14/2014 8:40 | | | | | |Supervisor Ski Production: Charmaine Ibarra RDMS | + + + + + + + | Performing | Address | City/State/Zipcode | Phone Number | | Organization | | | | + + + + + | [facility] | [address] | [place] | [phone] | | [facility] | | [address] | | | - IMAGING | | [...]
--- OUTSIDE RECORDS SUMMARY | ~2019-01-15 | XMS | Encounter Summary ---
Demographics + + + | Address | [address] | | | [place] [address] | + + + | Home Phone [...] Providers + +------+ + | Care Automobile Mechanic Apprentice Name | Role | Phone | + +------+ + PCP | Unavailable | + +------+ + Encounter Details +--------+ + + + + | Date | Type | Department | Care Team | Description | +--------+ + + + + | 09/22/ | Hospital | [facility] | Rocky Rodriguez | | | 2008 | Encounter | MED CTR EMERGENCY | MD Kyler [address] | | | | | CENTER [address] | [facility] | | | | | [place], [place] | [place] [address] | | | | | [address] | [phone] | | | | | [phone] | | | +--------+ + + + [...] [place] | | | | | | [address] | | | | | | | | +--------+---------+ + + + | 11/24/ | Office | Cardiology | [place], | | | 2019 | Visit | | SINDHU Erickson [address] | | | | | | [place] | | | | | | [place] [address] | | | | | | [phone] | | | | | | | | +--------+---------+ + + + documented as of this encounter Visit Diagnoses Not on filedocumented in this encounter"
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
--- OUTSIDE RECORDS SUMMARY | ~2019-01-15 | XMS | Encounter Summary ---
Demographics + + + | Address | [address] | | | [place] [address] | + + + | Home Phone [...] Providers + +------+ + | Care Delivery And Mail Sorter Name | Role | Phone | [...] ST | | | | | [address] [place] | [place] | | | | | [place] [address] | [address] | | | | | [phone] | | | +--------+ + + + [...] | | | | | | [place] [address] | | | | | | [phone] | | | | | | | | +--------+---------+ + + + documented as of this encounter Visit Diagnoses Not on filedocumented in this encounter"
--- OUTSIDE RECORDS SUMMARY | ~2019-01-15 | XMS | Encounter Summary ---
Demographics + + + | Address | [address] | | | [place] [address] | + + + | Home Phone [...] Team Providers + +------+ + | Care Sculpture Instructor Name | Role | Phone | + +------+ + PCP | Unavailable | + +------+ + Encounter Details +--------+ + + + + | Date | Type | Department | Care Team | Description | +--------+ + + + + | 07/31/ | Hospital | [facility] | Abigail Ozzie | | | 2010 | Encounter | MED CTR EMERGENCY | MD Ran [address] | | | | | SELENE [address] | [address] [facility] | | | | | [place], [place] | [place] [address] | | | | | [address] | [phone] | | | | | [phone] | | | +--------+ + + + [...] [place] | | | | | | [address] | | | | | | | | +--------+---------+ + + + | 11/24/ | Office | Cardiology | [place], | | | 2019 | Visit | | SINDHU Erickson [address] | | | | | | [place], | | | | | | [place] [address] | | | | | | [phone] | | | | | | | [...] - 1.030 | [facility] | | | Spring | | | [facility] | | [...] + | [facility] | [address] | [place] | [phone] | | [facility] | | [address] | | | - LABORATORY | | | | + + + + + | [facility] | [address] | [place] | | | [facility] | | [address] | | | - LABORATORY | | [...] + | [facility] | [address] | [place] | [phone] | | [facility] | | [address] | | | - LABORATORY | | | | + + + + + | [facility] | [address] | [place], [place] | | | [facility] | | [address] | | | - LABORATORY | | [...] | | | | | [facility] | | | | | | MEDICAL [...] + | [facility] | [address] | [place], [place] | [phone] | | [facility] | | [address] | | | - LABORATORY | | | | + + + + + | [facility] | [address] | [place], [place] | | | [facility] | | [address] | | | - LABORATORY | | [...] | + + + + + | [facility] | [address] | [place], [place] | [phone] | | [facility] | | [address] | | | - LABORATORY | | | | + + + + + | [facility] | [address] | [place], [place] | | | [facility] | | [address] | | | - LABORATORY | | | | + + + + + CT Abdomen Pelvis w Contrast (07/31/2010 2:22 AM PDT) + + | Specimen | + + | | + + + + + | Narrative | Performed At | + + + | [facility] Diagnostic Imaging Department | [facility] | | [address] [facility] | [facility] | | CT ABDOMEN AND PELVIS [...] Date/Time: 07/31/2010 | | | 10:29 Supervisor Mold Cleaning And Storage: <Electronically Signed by Lencho Reynolds | | | MD Shira> 07/31/10 1718 | | + + + + + | Procedure Note | + + | Roger Mcbride Conversion - 04/02/2013 3:05 PM [facility] | | Diagnostic Imaging Department [address] [facility] | | CT ABDOMEN AND PELVIS [...] | |Transcribed Date/Time: 07/31/2010 10:29 | |Supervisor Mold Cleaning And Storage: | |<Electronically Signed by Lencho Silva MD> [...]
--- OUTSIDE RECORDS SUMMARY | ~2019-01-15 | XMS | Encounter Summary ---
Demographics + + + | Address | [address] | | | [place] [address] | + + + | Home Phone [...] Team Providers + +------+ + | Care Select Banker Name | Role | Phone | + [...] + + | 08/20/ | Telephone | [facility] | [place], | LABS | | 2018 | | CARDIOLOGY [address] | Georgina VIDEOGAME TESTER [address] | | | | | [place], | [place], | | | | | [place] [address] | [place] [address] | | | | | [phone] | [phone] | | | | | | | [...] [place] | | | | | | [address] | | | | | | | | +--------+---------+ + + + | 11/24/ | Office | Cardiology | [place], | | | 2019 | Visit | | SINDHU Erickson [address] | | | | | | [place], | | | | | | [place] [address] | | | | | | [phone] | | | | | | | [...]
--- OUTSIDE RECORDS SUMMARY | ~2019-01-15 | XMS | Encounter Summary ---
Demographics + + + | Address | [address] | | | [place] [address] | + + + | Home Phone [...] Team Providers + +------+ + | Care Right Of Way Supervisor Name | Role | Phone | [...] + + | 08/26/ | Emergency | [facility] | Ozzie Hayes | COPD (chronic | | 2015 | | MED CTR EMERGENCY | MD Ran [address] | obstructive | | | | [place] [address] [place] | [place] [facility] | pulmonary disease) | | | | [place] | [place] [address] | ([facility]) (Primary Dx) | | | | [address] | [phone] | | | | | [phone] | | | +--------+ + + + [...] sent through Care Everywhere.COPD, WHAT IS ( THAI)documented in this encounter Medications at Time of [...] [place] | | | | | | [address] | | | | | | | | +--------+---------+ + + + | 11/24/ | Office | Cardiology | [place], | | | 2019 | Visit | | SINDHU Erickson [address] | | | | | | [place], | | | | | | [place] [address] | | | | | | [phone] | | | | | | | [...] ---- | | | 08/26/2014 04:46 [facility] | | | Center Emergency -Difficulty Breathing 07/10/2014 13:41 | | | [facility] 0. | | | SYNCOPAL EPISODE VISIT COUNT (1 YR.) Visits Medicaid [place] | | | Dx Location ------ --------- 2 | | | 0 [facility] 3 | | | 0 [facility] 5 | | | 0 Total Note: Visits indicate | | | total known visits. [place] Dx are the number of primary diagnoses | | | on the [facility]'s non-emergent dx list. | | [...]
--- OUTSIDE RECORDS SUMMARY | ~2019-01-15 | XMS | Encounter Summary ---
Demographics + + + | Address | [address] | | | [place] [address] | + + + | Home Phone [...] + +------+ + | Care Inside Sales Manager Name | Role | Phone [...] + + | 04/27/ | Office | [facility] | Offenstein, | COPD (chronic | | 2013 | Visit | PULMONARY [address] | Loreta Alonso MD | obstructive | | | | [place], | | pulmonary disease) | | | | [place] [address] | | (Primary Dx); [place] | | | | [phone] | | (obstructive sleep | | | [...] MD [place] Pulmonary and Critical Care [facility] [address] [place], [address] HPI Rosario Malik is a 48 y.o. 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 Length of Need 99 months. Please send order to [facility]. 1 each 0 Respiratory Therapy Supplies [...] Data: CPAP Data: Dates: 03/12/13-04/10/13 Machine type: [place] S9 auto set Home Health Company: [employer] CPAP Pressure: 11-14 cmH2O Median Titrated Pressure: [...] to ensure accuracy; however, inadvertent computerized clinical nurse reviewer errors may be pre sent. documented in t his encounter Plan of Treatment +--------+---------+ + + + | Date | Type | Specialty | Care Team | Description | +--------+---------+ + + + | 03/01/ | Office | Pulmonology | Mukul Clark MD | | | 2019 | Visit | | [address] | | | | | | [place] | | | | | | [address] | | | | | | | | +--------+---------+ + + + | 11/24/ | Office | Cardiology | [place], | | | 2019 | Visit | | SINDHU Erickson [address] | | | | | | [place], | | | | | | [place] [address] | | | | | | [phone] | | | | | | | [...]
--- OUTSIDE RECORDS SUMMARY | ~2019-01-15 | XMS | Encounter Summary ---
Demographics + + + | Address | [address] | | | [place] [address] | + + + | Home Phone [...] Team Providers + +------+ + | Care Sheriff Sergeant Name | Role | Phone | + [...] + + | 11/16/ | Office | [facility] | Kevin Sandoval, | COPD (chronic | | 2013 | Visit | PULMONARY [address] | MD [address] | obstructive | | | | [place], | [place], [place] | pulmonary disease) | | | | [place] [address] | [address] | ([facility]) (Primary Dx); | | | | [phone] | | Hypoxemia; GARRY | | | [...] nd it. Keep your chin up. 3. [place] 1 puff into the spacer by pressing [...] your mouth.) 3. Keep your chin up. [place] 1 puff by pressing down on the [...] store it in a dry p lace. 1556-7660 [facility], [address] [place] [address], [place] [address]. All rights reserve d. This information is not intended as a substitute for professional medical care. Always fo llow your healthcare professional's instructions. documented in this encounter Progress Notes Kevin Sandoval MD - 11/16/2013 10:11 AM PDTFormatting of this note might be different f rom the original. Pulmonary Follow Up 11/16/2013 [facility] Rosario Malik is a 48 y.o. [...] duct (pouch) (HCC) 10/28/2012 Overview: Managed by [facility] [...] [facility] Disp: 1 each, [place]fl: 0 Respiratory Therapy Supplies MISC, Change CPAP back to 11-14 cm H2O. All necessary supplies . No oxygen bleed in. Diagnosis Code(s)327.23. Length of Need: Lifetime. Please send order asiya [place] [facility]. This is not a new [...] | | | | [place] | | | | | | [address] | | | | | | | | +--------+---------+ + + + | 10/01/ | Office | Cardiology | [place], | | | 2019 | Visit | | SINDHU Erickson [address] | | | | | | [place], | | | | | | [place] [address] | | | | | | [phone] | | | | | | | [...]
--- OUTSIDE RECORDS SUMMARY | ~2019-01-15 | XMS | Encounter Summary ---
Demographics + + + | Address | [address] | | | [place] [address] | + + + | Home Phone [...] Providers + +------+ + | Care Electrical Electronics Engineers Name | Role | Phone | + [...] | | | | [facility] | [address] | [address] | | | | | EXERCISE | [place], | [place] | | | | | | [place] [address] | [place], [place] | | | | | | Phone: | [address] | | | | | | [phone] | Phone: | | | | | | Fax: | [phone] | | | | | | [phone] | Fax: | | | | | | | [phone] | +--------+--------+ + + + + Encounter Details +--------+---------+ + + + | Date | Type | Department | Care Team | Description | +--------+---------+ + + + | 08/13/ | Office | [facility] | Jared Mcdonough, | Chronic obstructive | | 2017 | Visit | MED CTR CARDIAC | [address] | pulmonary disease, | | | | REHABILITATION [address] | [place] [place], | unspecified COPD | | | | [address] [place] | [place] [address] | type (HCC) (Primary | | | | [place] [address] | [phone] | Dx) | | | | [phone] | | | +--------+---------+ + + + [...] [place] | | | | | | [address] | | | | | | | | +--------+---------+ + + + | 11/24/ | Office | Cardiology | [place], | | | 2019 | Visit | | SINDHU Erickson [address] | | | | | | [place], | | | | | | [place] [address] | | | | | | [phone] | | | | | | | | +--------+---------+ + + + documented as of this encounter Visit Diagnoses + + | Diagnosis | + + | Chronic obstructive pulmonary disease, unspecified COPD type (HCC) - Primary | + + documented in this encounter"
--- OUTSIDE RECORDS SUMMARY | ~2019-01-15 | XMS | Encounter Summary ---
Demographics + + + | Address | [address] | | | [place] [address] | + + + | Home Phone [...] Team Providers + +------+ + | Care Intelligence Consultant Name | Role | Phone | [...] | | | | | pulmonary | [address] | [address] | | | | | disease, | [place], | [place] | | | | | unspecified | [place] [address] | [place], [place] | | | | | COPD type | Phone: | [address] | | | | | (HCC) | [phone] | Phone: | | | | | Pulmonary | Fax: | [phone] | | | | | emphysema, | [phone] | Fax: | | | | | unspecified | | [phone] | | | | | emphysema | | | | | | | type ([facility]) | | | +--------+ + + + + + Encounter Details +--------+ + + + + | Date | Type | Department | Care Team | Description | +--------+ + + + + | 04/03/ | Orders Only | [facility] [place] | JamaledgardoJared, | Chronic obstructive | | 2017 | | CARDIOLOGY [address] | [address] [place] | pulmonary disease, | | | | [place], | [place], | unspecified COPD | | | | [place] [address] | [place] [address] | type (HCC) (Primary | | | | [phone] | [phone] | Dx); Pulmonary | | | | [...] [place] | | | | | | [address] | | | | | | | | +--------+---------+ + + + | 11/24/ | Office | Cardiology | [place], | | | 2019 | Visit | | SINDHU Erickson [address] | | | | | | [place], | | | | | | [place] [address] | | | | | | [phone] | | | | | | | [...]
--- OUTSIDE RECORDS SUMMARY | ~2019-01-15 | XMS | Encounter Summary ---
Demographics + + + | Address | [address] | | | [place] [address] | + + + | Home Phone [...] Providers + +------+ + | Care Bleach Mixer Name | Role | Phone | + +------+ + | Juan Cherry DO | PCP | | + +------+ + Encounter Details +--------+ + + + + | Date | Type | Department | Care Team | Description | +--------+ + + + + | 08/06/ | Hospital | [facility] IP | Conversion | Unknown cause of | | 2017 | Encounter | CONVERSION [address] | Transaction, | injury, initial | | | | [address] | Provider Unknown | encounter | | | | [place] | [phone] | | | | | [address] | | | | | | [phone] | | | +--------+ + + + [...] [place] | | | | | | [address] | | | | | | | | +--------+---------+ + + + | 11/24/ | Office | Cardiology | [place], | | | 2019 | Visit | | SINDHU Erickson [address] | | | | | | [place], | | | | | | [place] [address] | | | | | | [phone] | | | | | | | [...]
--- OUTSIDE RECORDS SUMMARY | ~2019-01-15 | XMS | Encounter Summary ---
Demographics + + + | Address | [address] | | | [place] [address] | + + + | Home Phone [...] + +------+ + | Care Financial Aid Administrator Name | Role | Phone | + +------+ + PCP | Unavailable | + +------+ + Encounter Details +--------+ + + + + | Date | Type | Department | Care Team | Description | +--------+ + + + + | [facility] | | | | 2008 | Encounter | MED CTR LABORATORY | | | | | | [address] [place] | | | | | | [place] | | | | | | [address] | | | | | | [phone] | | | +--------+ + + + [...] [place] | | | | | | [address] | | | | | | | | +--------+---------+ + + + | 11/24/ | Office | Cardiology | [place], | | | 2020 | Visit | | SINDHU Erickson [address] | | | | | | [place], | | | | | | [place] [address] | | | | | | [phone] | | | | | | | | +--------+---------+ + + + documented as of this encounter Visit Diagnoses Not on filedocumented in this encounter"
--- OUTSIDE RECORDS SUMMARY | ~2019-01-15 | XMS | Encounter Summary ---
Demographics + + + | Address | [address] | | | [place] [address] | + + + | Home Phone [...] Providers + +------+ + | Care Cattle Knocker Name | Role | Phone | + [...] + | 06/25/ | Clinical | [facility] | Andriy Weber | Bladder pain | | 2018 | Support | [address] | [address] | (Primary Dx) | | | | [place], [place] | [address] [facility] | | | | | [address] | [place] [address] | | | | | [phone] | [phone] | | | | | | | [...] Units Admin Date 06/25/2017 Action Given Dose [id number] Units Route Irrigation Administered By Loraine Hawkins [...] [place] | | | | | | [address] | | | | | | | | +--------+---------+ + + + | 11/24/ | Office | Cardiology | [place], | | | 2019 | Visit | | SINDHU Erickson [address] | | | | | | [place], | | | | | | [place] [address] | | | | | | [phone] | | | | | | | [...]
--- OUTSIDE RECORDS SUMMARY | ~2019-01-15 | XMS | Encounter Summary ---
Demographics + + + | Address | [address] | | | [place] [address] | + + + | Home Phone [...] Providers + +------+ + | Care Manager Hair Name | Role | Phone | + [...] [place] | treatments) | | | | [address] | [place] [address] | | | | | [phone] | [phone] | | | | | | | [...] HOPPER | | | | | | [id number] | | | | | | | | +--------+---------+ + + + | 11/24/ | Office | Cardiology | [place], | | | 2019 | Visit | | SINDHU Erickson W | | | | | | [place] | | | | | | [place] [address] | | | | | | [phone] | | | | | | | | +--------+---------+ + + + documented as of this encounter Visit Diagnoses Not on filedocumented in this encounter"
--- OUTSIDE RECORDS SUMMARY | ~2019-01-15 | XMS | Encounter Summary ---
Demographics + + + | Address | [address] | | | [place] [address] | + + + | Home Phone [...] Providers + +------+ + | Care Certified Substance Abuse Counselor Name | Role | Phone | [...] Rehabilitatio | headache | MD Need | Paulina | | | | n | [phone] | updated | [place], | | | | | (ICD-9-CM) - | address | [place] [address] | | | | | Migraine | | Phone: | | | | | headache | | [phone] | | | | | Procedures | | Fax: | | | | | pt eval | | [phone] | | | | | (tosin) | [...] Need | | | | | | ([facility]) | updated | | | [...] Pituitary | Shashi Witt, | [address] | | | | | adenoma | MD Need | [place], | | | | | ([facility]) | updated | [place] | | | | | Procedures | address | [address] | | | | | MRI Brain w | | Phone: | | | | | wo Contrast | | [phone] | | | | | | | Fax: | | | | | | | [phone] | +--------+--------+ + + + + Reason for Visit + + + | Reason | Comments | + + + | Follow-up | headaches | + + + Encounter Details +--------+---------+ + + + | Date | Type | Department | Care Team | Description | +--------+---------+ + + + | 05/23/ | Office | [facility] | Shashi Segovia | Headache (Primary | | 2014 | Visit | NEUROLOGY ADRIANA Witt MD Need updated | Dx); Migraine | | | | [address] [facility], | address | headache; 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 Do not take your medicine more often than directed. Talk to your nurse college regarding the use of this medicine in [...] should report to your doctor or health reservoir caretaker as soon as p ossible: allergic [...] attention (report to your doctor or health reservoir caretaker if they continue or are bothersome): drowsiness dry mouth feeling warm, flushing, or redness of the face headache muscle cramps, pain nausea, vomiting unusually weak or tired This list may not describe all possible side effects. Call your doctor for medical advice a bout side effects. You may report side effects to FDA at 4-560-KQN-3076. Where should I keep my medicine? Keep [...] from the original. Shashi Segovia MD [address] [facility] [address] [place] [address] Neurology Outpatient ProgressNote Patient ID: Ms. Malik [...] Please send order to [facility]. Respiratory Therapy Supplies MISC (Taking) Change CPAP back to 11-14 cm H2O. All necessar y supplies. No oxygen bleed in. Diagnosis Code(s)327.23. Length of Need: Lifetime. Please se nd order to [facility]. This is not a [...] pituitary lesion, following up in neurology cl [facility] for increased headache frequency. 1) Headaches: increased [...] stud. - Patient no longer followed at [facility] endocrine. Will refer to local revolving inventory clerk. Follow up in neurology in 1 month [...] | | | | | [place] [address] | | | | | | [phone] | | | | | | | [...] - AMB | Referral | e | ([facility]) | | | Referral | [...] adenoma COMPARISON: 2009 and 2010 | [facility] | | TECHNIQUE: Multiplanar, multisequence imaging of the brain was | MEDICAL [facility]ENTER | | performed in the 1.5 T MR scanner before and after the uneventful | - IMAGING | | administration of 10 mL of Gadavist. Dedicated small ilgsy-zd-wroy | | | thin section imaging through [...] 10 mL ofGadavist. | | Dedicated small uzxml-wp-ayqz thin section imaging through thepituitary region before [...] ST. | [address] | [place] | [phone] | | [facility] | | [id number] | | | - IMAGING | | [...]
--- OUTSIDE RECORDS SUMMARY | ~2019-01-15 | XMS | Encounter Summary ---
Demographics + + + | Address | [address] | | | [place] [address] | + + + | Home Phone [...] Providers + +------+ + | Care Auditing Control Clerk Name | Role | Phone [...] Provider Unknown | | | | | [place], [place] | [phone] | | | | | [address] | | | | | | [phone] | | | +--------+ + + + [...] | | | | [facility] | | | | | | [address] | | | | | | | | +--------+---------+ + + + | 11/24/ | Office | Cardiology | [place], | | | 2019 | Visit | | SINDHU Erickson [address] | | | | | | [place], | | | | | | [place] [address] | | | | | | [phone] | | | | | | | [...]
--- OUTSIDE RECORDS SUMMARY | ~2019-01-15 | XMS | Encounter Summary ---
Demographics + + + | Address | [address] | | | [place] [address] | + + + | Home Phone [...] + + + + | 04/05/ | [facility] | [facility] | | | | 2010 | Encounter | MED CTR XRAY [address] | | | | | | [place] | | | | | | [place] [address] | | | | | | [phone] | | | +--------+ + + + [...] [place] | | | | | | [address] | | | | | | | | +--------+---------+ + + + | 11/24/ | Office | Cardiology | [place], | | | 2019 | Visit | | SINDHU Erickson W | | | | | | [place], | | | | | | [place] [address] | | | | | | [phone] | | | | | | | | +--------+---------+ + + + documented as of this encounter Visit Diagnoses Not on filedocumented in this encounter"
--- OUTSIDE RECORDS SUMMARY | ~2019-01-15 | XMS | Encounter Summary ---
Demographics + + + | Address | [address] | | | [place] [address] | + + + | Home Phone [...] Team Providers + +------+ + | Care Uke Driver Name | Role | Phone | [...] on | MED CTR THERAPY PT | BAR ASSISTANT [address] | | | | | OP [address] | [place], [place] | | | | | [place], [place] | [address] | | | | | [address] | [phone] | | | | | [phone] | | | +--------+ + + + [...] of this encounter Progress Notes Janey Low, BAR ASSISTANT - 05/25/2013 9:34 AM [facility] OP [address] [place] [address] Cancellation/No Show Date: 05/25/2013 Patient Information Patient [...] [place] | | | | | | [id number] | | | | | | | | +--------+---------+ + + + | 11/24/ | Office | Cardiology | [place] | | | 2019 | Visit | | SINDHU Erickson W | | | | | | [place] | | | | | | [place] [address] | | | | | | [phone] | | | | | | | | +--------+---------+ + + + documented as of this encounter Visit Diagnoses Not on filedocumented in this encounter"
--- OUTSIDE RECORDS SUMMARY | ~2019-01-15 | XMS | Encounter Summary ---
Demographics + + + | Address | [address] | | | [place] [address] | + + + | Home Phone [...] Providers + +------+ + | Care Card Checker Name | Role | Phone | + +------+ + | Ozzy Delcid MD | PCP | | + +------+ + Encounter Details +--------+ + + + + | Date | Type | Department | Care Team | Description | +--------+ + + + + | 09/28/ | Hospital | [facility] | Ozzie Hayes | | | 2011 | Encounter | MED CTR EMERGENCY | MD Ran [address] | | | | | [facility] [address] | [address] [place] | | | | | [place], [place] | [place] [address] | | | | | [address] | [phone] | | | | | [phone] | | | +--------+ + + + [...] | | | | | | [place] [address] | | | | | | [phone] | | | | | | | [...] Performed At | + + + | [facility] Diagnostic Imaging Department | [facility] | | [address] [facility] | [facility] | | RIGHT FOOT: CLINICAL [...] Transcribed Date/Time: 09/29/2011 13:00 | | | Zinc Plating Machine Operator: <Electronically Signed by Cesar Singh | | | MD Mikal> 09/29/11 2146 | | + + + + + | Procedure Note | + + | Reed, Rad Conversion - 04/02/2013 5:48 PM [facility] | | Diagnostic Imaging Department [address] [place] [address] | | RIGHT FOOT: CLINICAL HISTORY: Trauma. [...] Cesar Singh | | MD Mikal> 09/29/11 1445 | |other fracture is seen. There is [...] 12:39 | |Transcribed Date/Time: 09/29/2011 13:00 | |Zinc Plating Machine Operator: | |<Electronically Signed by Cesar Ren [...]
--- OUTSIDE RECORDS SUMMARY | ~2019-01-15 | XMS | Encounter Summary ---
Demographics + + + | Address | [address] | | | [place] [address] | + + + | Home Phone [...] Team Providers + +------+ + | Care Sustainment Logistics Analyst Name | Role | Phone | [...] | Off-Site | [facility] [place] | [place], | Tachycardia (Primary | | 2013 | Visit | CARDIOLOGY [address] | SINDHU Erickson [address] | Dx); Palpitations; | | | | [place], | [place], | Tachyarrhythmia; | | | | [place] [address] | [place] [address] | Other chest pain | | | | [phone] | [phone] | | | | | | | [...] she was prescribed colchicine. Patient did not pharmacy picking technician prescription and has not started it. Since [...] 15mg/day x 7 days Respiratory Therapy Supplies [facility] Incentive spirometer. Please provide instructions in use. Dx: 848.8 MADELEINE: 3 months 1 each 99 Respiratory Therapy Supplies [facility] Please provide patient with necessary CPAP supplies ( she did not specify, okay to send order as appropriate) Diagnosis Code(s)327.23 . Length of Need 99 months. Please send order to [facility]. 1 each 0 Respiratory Therapy Supplies [facility] Change CPAP back to 11-14 cm H2O. All necessary suppl ies. No oxygen bleed in. Diagnosis Code(s)327.23. Length of Need: Lifetime. Please send orde r to [facility]. This is not a new [...] HGBEX 14.5 05/10/2013 I reviewed records from [facility] for emergency department visit o n [...] She is in a class II of [place] [employer] functional class. There is no [...] this chart may have been created with eToro voice recognition software. Occasi onal wrong-word or [...] | | | | | | [place] [address] | | | | | | [phone] | | | | | | | [...] 1965 Medical Record Number: | | | [id number] Date: 01/27/2014 Time: 10:20 EKG Interpretation | [...]
--- OUTSIDE RECORDS SUMMARY | 2019-01-15 02:44 | XMS ---
PreManage Notification: JADYN SCHMITZ Security Sliver Chopper Events No recent Security Events currently on file CRITERIA MET - PDMP CARE PROVIDERS YONG PATEL Primary Care Current PHONE: [phone] Delfina has no Care Guidelines for this patient. EGonzalo VISIT COUNT (12 MO.) 1 JANELLE Winkler TOTAL 1 NOTE: Visits indicate total known visits. ED/UCC VISIT TRACKING (12 MO.) 01/15/2019 02:[address] [facility] [place] TYPE: Emergency COMPLAINT: - URINE PROBLEM INPATIENT VISIT TRACKING (12 MO.) No inpatient visits to display in this time frame [email or web address]
[2019-01-15] MEDS ORDERED: SUMATRIPTAN SU100 MG PO (03:10)
[2019-01-15] MEDS ORDERED: PREDNISONE10 MG PO (03:10)
[2019-01-15] MEDS ORDERED: ZOLPIDEM TARTRA10 MG PO (03:10)
[2019-01-15] MEDS ORDERED: VENTOLIN HFA18 GM INH (03:11)
[2019-01-15] MEDS ORDERED: HYDROXYZINE HCL25 MG PO (03:11)
[2019-01-15] MEDS ORDERED: ADVAIR HFA 230-12 GM INH (03:11)
[2019-01-15] MEDS ORDERED: PANTOPRAZOLE SO40 MG PO (03:12)
[2019-01-15] MEDS ORDERED: RISPERIDONE2 MG PO (03:12)
[2019-01-15] MEDS ORDERED: GABAPENTIN800 MG PO (03:12)
[2019-01-15] MEDS ORDERED: POTASSIUM CHLO20 ME1 PO (03:12)
[2019-01-15] MEDS ORDERED: OXYBUTYNIN CHLOR5 MG PO (03:12)
[2019-01-15] MEDS ORDERED: ZIPRASIDONE HCL80 MG PO (03:13)
[2019-01-15] MEDS ORDERED: METFORMIN HCL500 MG PO (03:13)
[2019-01-15] MEDS ORDERED: FLUTICASONE PRO16 GM NAS (03:13)
[2019-01-15] MEDS ORDERED: LEVOTHYROXINE75 MCG PO (03:13)
[2019-01-15] MEDS ORDERED: ULTRAM50 MG PO (03:14)
--- NOTE | 2019-01-15 11:00 | NUR ---
PT IS ANXIOUS. HUB CUTTER GOT VERBAL ORDER TO GIVE HOME MEDS. HUB CUTTER DID MED REC AND ENTERED HOME MEDS. WILL GIVE REMAINING MEDS WHEN AVAILABLE.
--- NOTE | 2019-01-15 12:26 | NUR ---
PT LAYING IN BED ON L SIDE. SHE IS ALERT, ORIENTED AND IN HER OWN WORDS CRANKY BECAUSE SHE HURTS.I SENSED PT JUST NEEDED SOME SPACE, GAVE BLESSING AND WILL FOLLOW NEEDED
--- NOTE | 2019-01-15 15:27 | NUR ---
MED REC COMPLETED BASED ON MEDICATION REFILL HISTORY. CHANGES MADE BASED ON CURRENT REFILL DATA.
--- NOTE | 2019-01-15 17:58 | NUR ---
PT SLEEPING COMFORTABLY, RN WENT IN ROOM AND PT DID NOT STIR. DECLINED PO INTAKE. IVF RUNNING.
--- NOTE | 2019-01-16 07:30 | NUR ---
RECIEVED BEDSIDE REPORT FROM NAYELI WHITEHEAD. PT AWAKE AND ALERT IN BED. PT IS SHAKY. PT STATES SHE IS LEAVING BY 1400 THIS AFTERNOON SHE HAS AN ELDERLY PARROT AT HOME THAT NEEDS CARE. PT IS TOLERATING CLEARS WELL, STATES SHE HAS HAD A BM.
--- NOTE | 2019-01-16 08:12 | NUR ---
PT IS CHEERFUL THIS MORNING. SHE ASKED FOR BROTH AND TEA, GIVEN. TOLERATING WELL. PASSING GAS. DENIES PAIN AT THIS TIME.
--- NOTE | 2019-01-16 09:15 | NUR ---
PT IS AWAKE AND ALERT, VOIDING WELL. STATES SHE FEELS GOOD. LESS SHAKY.
[2019-01-16] MEDS ORDERED: METRONIDAZOLE250 MG PO (09:52)
[2019-01-16] MEDS ORDERED: LEVOFLOXACIN500 MG PO (09:52)
--- NOTE | 2019-01-16 09:55 | NUR ---
PT AWAKE AND ALERT IN BED, ON PHONE. GAVE RN A THUMBS UP WHEN CHECKED ON. CALL LIGHT IN REACH. NO NEEDS AT THIS TIME. DR WOODALL HAS ROUNDED. DISCHARGE ORDER IN COMPUTER.
--- NOTE | 2019-01-16 12:35 | HP ---
[facility] [address] [place], [place] [address] Signed ADMISSION DATE: 01/15/2019 REASON FOR ADMISSION: Acute diverticulitis with known hypoadrenalism. HISTORY OF PRESENT ILLNESS: This 54-year-old white woman is generally disabled related to fibromyalgia, back pain, and other issues. She presented to the emergency room at approximately 3 in the morning today, where she was evaluated by Dr. Lugo with complaints of left lower abdominal pain. This has been going on for the preceding week, but increasing in severity. She has had no vomiting, diarrhea, or blood per rectum. She is known to have COPD and adrenal insufficiency, likely related to steroid use to control her COPD. She takes prednisone 10 mg daily. The patient was found to have a normal white count. A CT scan was performed, which showed uncomplicated acute sigmoid diverticulitis. I was called as to the advisability of admission to the hospital and given her underlying medical problems, adrenal insufficiency, and so forth, deemed it safer for her to be admitted given intravenous antibiotics, steroid replacement therapy, and further monitoring. She is admitted on that basis. She has had diverticulitis in the past, she says. Her last episode was about 10 years ago, she thinks. The patient is a former patient of Dr. Davis many years ago, but now sees Dr. Cherry and Dr. Clark at [facility]. PAST MEDICAL HISTORY: Includes: 1. COPD. 2. Fibromyalgia. 3. Adrenal insufficiency with prednisone replacement. 4. Osteoarthritis. PAST SURGICAL HISTORY: Includes hysterectomy, hernia repair, anti-reflux operation x2, right knee and right toe surgery. ALLERGIES: She has allergies to nonsteroidal medications and erythromycin. Electronically Signed By: REKHA WOODALL MD 01/16/19 1235 PATIENT NAME: JADYN SCHMITZ HISTORY AND PHYSICAL DATE OF : 69 REPORT #: [id number] PHYSICIAN: REKHA WOODALL MD PCP: BINA DAVIS MD REPORT IS CONFIDENTIAL AND NOT TO BE RELEASED WITHOUT AUTHORIZATION [facility] [address] [place], [place] [address] Signed MEDICINES: Her medicines at home include prednisone 10 mg daily, zolpidem 10 mg at bedtime, sumatriptan 100 mg as needed for migraine, albuterol inhaler q.4 hours p.r.n., Advair inhaler daily, hydroxyzine 25 mg at bedtime, risperidone 2 mg p.o. at bedtime, oxybutynin 5 mg p.o. at bedtime, potassium chloride 20 mEq p.o. daily, pantoprazole 40 mg p.o. daily, gabapentin 800 mg p.o. t.i.d., Synthroid 75 mcg p.o. daily, metformin 500 mg p.o. b.i.d., fluticasone nasally as needed, ziprasidone 80 mg p.o. at bedtime, and tramadol 50 mg p.o. q.i.d. REVIEW OF SYSTEMS: She denies any shortness of breath. She does feel "nervous" much of the time. She denies any blood per rectum or hematemesis. Her pain on the left lower abdomen is improved since admission to the hospital with IV fluids. PHYSICAL EXAMINATION: GENERAL: This is a pleasant woman, who looks to be a jittery basically. She does not have delirium. She is clear in the sensorium. Alert, oriented, and cooperative. HEENT: Mucous membranes reasonably moist. Trachea is midline. She has no hoarseness. CHEST: Clear. HEART: Regular without murmur. ABDOMEN: Somewhat obese, but soft. Palpation reveals mild tenderness in left lower abdomen. There is no evidence of ascites and no palpable mass. EXTREMITIES: Show no clubbing, cyanosis, or edema. ADMISSION LAB STUDIES: Show white count of 10.8, hematocrit 40.9, platelets 441,000. Chem profile is normal. Creatinine 0.59. Liver enzymes normal and lipase normal. Urinalysis is normal. CT scan images were reviewed and report reviewed showing inflammatory changes in the proximal sigmoid with pericolonic fat stranding and there is no sign of free air or abscess collection. Numerous diverticula are noted. ASSESSMENT: The patient has acute diverticulitis. She is not systemically toxic or febrile, but does have tenderness and complaints of pain. Given adrenal insufficiency, she is admitted for IV antibiotics, IV fluid administration, bowel rest, anticipating transition to oral antibiotics, and a low-fiber diet in due course. We will treat with stress dose steroids, hydrocortisone 100 mg IV q.8 hours, and likely taper to a much less dose promptly. Her other medications can be taken orally with sips of water, particularly her medications related to psychiatric illness. She seems a bit fixated on the timing of her medications. We will try to accommodate that as much as possible. It is unlikely she would progress to need for a surgical Electronically Signed By: REKHA WOODALL MD 01/16/19 1235 PATIENT NAME: JADYN SCHMITZ HISTORY AND PHYSICAL DATE OF : 69 REPORT #: [id number] PHYSICIAN: REKHA WOODALL MD PCP: BINA DAVIS MD REPORT IS CONFIDENTIAL AND NOT TO BE RELEASED WITHOUT AUTHORIZATION [facility] [address] [place], [place] [address] Signed intervention in this problem, but will be a consideration if we at least do colonoscopy at some point to assure that this does not represent a malignancy rather than inflammatory process. I discussed all this with the patient. MD INNA Rubio/MAXX /[id number] cc: Mukul Cherry DO Copies: MUKUL CLARK MD, JUSTIN DO ~ Electronically Signed By: REKHA WOODALL MD 01/16/19 1235 PATIENT NAME: JADYN SCHMITZ HISTORY AND PHYSICAL DATE OF : 69 REPORT #: [id number] PHYSICIAN: REKHA WOODALL MD PCP: BINA DAVIS MD REPORT IS CONFIDENTIAL AND NOT TO BE RELEASED WITHOUT AUTHORIZATION
--- NOTE | 2019-01-17 11:29 | DS ---
[facility] [address] [place], [place] [address] Signed ADMISSION DATE: 01/15/2019 DISCHARGE DATE: 01/16/2019 REASON FOR ADMISSION: Acute diverticulitis and chronic adrenal insufficiency. HISTORY: This 54-year-old white woman is generally disabled related to fibromyalgia, back pain and other issues. She is also known to have chronic adrenal insufficiency, likely related to long-standing steroid use for COPD problems. She was evaluated by Dr. Lugo with complaints of left lower abdominal pain, which had been going on for the preceding week, but increasing in severity. She had no vomiting, diarrhea, or blood per rectum. She is known to have COPD and takes prednisone 10 mg a day for adrenal insufficiency. The patient was found to have normal white count. A CT scan was performed showing uncomplicated acute sigmoid diverticulitis. She was admitted for further evaluation and care. She is a former patient of Dr. Davis, but now sees Dr. Cherry and Dr. Clark of [place]. She does have underlying psychiatric illness as well. PERTINENT PHYSICAL EXAMINATION: GENERAL: At time of admission showed a pleasant white woman to be fidgety and jittery basically. She does not have delirium, however. She is alert, oriented and cooperative. HEENT: Mucous membranes are moist. NECK: Trachea midline. CHEST: Clear. HEART: Regular without murmur. ABDOMEN: Soft and obese. There was tenderness in the left lower abdomen. No sign of peritonitis. No ascites. No palpable mass. EXTREMITIES: Without clubbing, cyanosis, or edema. LABORATORY DATA: White count is 10.8, hematocrit 40.9, platelets 441,000. Chem profile normal. Creatinine 0.59. Liver enzymes normal. Urinalysis normal. CT scan showed inflammatory change in the proximal sigmoid and pericolonic fat stranding with no sign of free air or abscess collection. Numerous diverticula are noted. HOSPITAL COURSE: The patient was admitted and made n.p.o., and given intravenous antibiotic, Levaquin and Flagyl. Pepcid was administered and stress dose steroids of hydrocortisone 100 mg IV q.8 were given. The patient had marked improvement rather promptly. Liquids were given, which she tolerated. The following day, plan for additional hospitalization with Electronically Signed By: REKHA WOODALL MD 01/17/19 1129 PATIENT NAME: JADYN SCHMITZ DISCHARGE SUMMARY DATE OF : 69 REPORT #: [id number] PHYSICIAN: REKHA WOODALL MD PCP: BINA DAVIS MD REPORT IS CONFIDENTIAL AND NOT TO BE RELEASED WITHOUT AUTHORIZATION [address] [address] Signed advancing of her diet was anticipated, however, the patient declared she would be leaving no matter what, as she needed to take care of her 54-year-old, at [facility] at home. A trial of low fiber food is administered prior to anticipated discharge later today. She was transitioned to oral Levaquin and Flagyl anticipating a 10-day course and a low-fiber diet. FOLLOWUP: She is to return to see me in approximately 10 days and call sooner if problems are worsening or recurring. She will resume her usual medication including prednisone 10 mg daily. DISCHARGE DIAGNOSES: 1. Acute diverticulitis without perforation or abscess formation. 2. Adrenal insufficiency, likely related to iatrogenic causes from steroid use for COPD. 3. Underlying chronic obstructive pulmonary disease. 4. Psychiatric illness, not otherwise specified. 5. Fibromyalgia. 6. Osteoarthritis. 7. History of hysterectomy. 8. Anti-reflux operation x3 (Hill repair in the 1990s). 9. Laparoscopic fundoplication, [facility] later. FOLLOWUP PLAN: She will call for a followup visit in the next few weeks to my office. MD INNA Rubio/MUMTAZL /[id number] cc: Mukul Cherry DO Electronically Signed By: REKHA WOODALL MD 01/17/19 1129 PATIENT NAME: JADYN SCHMITZ DISCHARGE SUMMARY DATE OF : 69 REPORT #: [id number] PHYSICIAN: REKHA WOODALL MD PCP: BINA DAVIS MD REPORT IS CONFIDENTIAL AND NOT TO BE RELEASED WITHOUT AUTHORIZATION [facility] [address] [place] [address] Signed Hannah Lugo DO Copies: MUKUL CLARK MD, JUSTIN DO STEIN, KATHLEEN DO ~ Electronically Signed By: REKHA WOODALL MD 01/17/19 1129 PATIENT NAME: THEOPANFILOJADYN DISCHARGE SUMMARY DATE OF : 69 REPORT #: [id number] PHYSICIAN: REKHA WOODALL MD PCP: BINA DAVIS MD REPORT IS CONFIDENTIAL AND NOT TO BE RELEASED WITHOUT AUTHORIZATION
== END 2019-01-16 12:50 | disposition home or self-care (01) | DRG 392 ==
LOC: ED 02:41 → MS 02:42
PROVIDERS: ADMIT Surgery
DX: K57.32 Diverticulitis of large intestine without perforation or abscess without bleeding (principal); E27.3 Drug-induced adrenocortical insufficiency; T38.0X5D Adverse effect of glucocorticoids and synthetic analogues, subsequent encounter; M79.7 Fibromyalgia; M54.9 Dorsalgia, unspecified; J44.9 Chronic obstructive pulmonary disease, unspecified; M19.90 Unspecified osteoarthritis, unspecified site; F99 Mental disorder, not otherwise specified; Z88.1 Allergy status to other antibiotic agents; Z88.8 Allergy status to other drugs, medicaments and biological substances; Z79.84 Long term (current) use of oral hypoglycemic drugs; Z79.891 Long term (current) use of opiate analgesic; Z79.51 Long term (current) use of inhaled steroids; Z79.52 Long term (current) use of systemic steroids; Z79.899 Other long term (current) drug therapy
CPT/HCPCS: 36415; 74177; 80053; 81001; 83690; 85025; 94640; 94660; 99285-25; 99406; J0131; J1644; J1720; J1956; J2405; J3010; J7030; J7121; J7512; Q0177; Q9967

== ENCOUNTER 2019-02-28 06:37 | Emergency (ER) | payer MEDICARE, MEDICAID ==
[~2019-02-28] VITALS: Ht 154.9 cm; Wt 62.1 kg
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
--- OUTSIDE RECORDS SUMMARY | ~2019-02-28 | XMS | Encounter Summary ---
Demographics + + + | Address | [address] | | | [place] [address] | + + + | Home Phone | | + + + | Preferred Language | Unknown | + + + | Marital Status | Single | + + + | Nondenominational Affiliation | 1041 | + + + [...] Team Providers + +------+ + | Care Coroner Name | Role | Phone | + +------+ + | Juan Cherry DO | PCP | | + +------+ + Reason for Visit + + + | Reason | Comments | + + + | Medication Refill | | + + + Encounter Details +--------+--------+ + + + | Date | Type | Department | Care Team | Description | +--------+--------+ + + + | 02/15/ | Refill | [facility] | Kevin Sandoval, | Medication Refill | | 2014 | | PULMONARY [address] | MD [address] | | | | | [place], | [place] | | | | | [place] [address] | [address] | | | | | [phone] | | | +--------+--------+ + + + Social History + + [...] + + documented as of this encounter Functional Status + + + [...] [place] | | | | | | [address] | | | | | | | | +--------+---------+ + + + | 11/24/ | Office | Cardiology | [place], | | | 2019 | Visit | | SINDHU Erickson [address] | | | | | | [place], | | | | | | [place] [address] | | | | | | [phone] | | | | | | | | +--------+---------+ + + + documented as of this encounter Visit Diagnoses Not on filedocumented in this encounter"
--- OUTSIDE RECORDS SUMMARY | ~2019-02-28 | XMS | Encounter Summary ---
Demographics + + + | Address | [address] | | | [place] [address] | + + + | Home Phone | | + + + | Preferred Language | Unknown | + + + | Marital Status | Single | + + + | Scientologist Affiliation | 1041 | + + + | Race | Unknown | + + + | Ethnic Group | Unknown | + + + Author + + + | Author | [facility] | | | and [place] | + + + | Organization | [facility] | | | and [...] Team Providers + +------+ + | Care Rubber Attacher Name | Role | Phone | + +------+ + | Juan Cherry DO | PCP | | + +------+ + Reason for Visit +--------+ + | Reason | Comments | +--------+ + | Other | | +--------+ + Encounter Details +--------+ + + + + | Date | Type | Department | Care Team | Description | +--------+ + + + + | 04/27/ | Telephone | [facility] | Marilyn Osborne, | Other | | 2012 | | PULMONARY [address] | RN | | | | | [place], | | | | | | [place] [address] | | | | | | [phone] | | | +--------+ + + + + Social History + +-------+ +--------+------+ | Tobacco Use | Types | Packs/Day | Years | Date | | | | | Used | | + +-------+ +--------+------+ | Current Every Day | | 0.3 | 30 | | | Smoker | | | | | + +-------+ +--------+------+ + +---+---+---+ | Smokeless Tobacco: | | | | | Never Used | | | | + +---+---+---+ + + +---------+ + | Alcohol Use | Drinks/Week | oz/Week | Comments | + + +---------+ + | No | | | Rare. ~1 drink | | | | | every several months | + + +---------+ + + + [...] | | | | | [place] | | | | | | [id number] | | | | | | | | +--------+---------+ + + + | 11/24/ | Office | Cardiology | [place], | | | 2019 | Visit | | SINDHU Erickson [address] | | | | | | [place], | | | | | | [place] [address] | | | | | | [phone] | | | | | | | | +--------+---------+ + + + documented as of this encounter Visit Diagnoses Not on filedocumented in this encounter"
--- OUTSIDE RECORDS SUMMARY | ~2019-02-28 | XMS | Encounter Summary ---
Demographics + + + | Address | [address] | | | [place] [address] | + + + | Home Phone | | + + + | Preferred Language | Unknown | + + + | Marital Status | Single | + + + | Hinduism Affiliation | 1041 | + + + [...] Team Providers + +------+ + | Care Business Development Representative Name | Role | Phone | + +------+ + PCP | Unavailable | + +------+ + Encounter Details +--------+ + + + + | Date | Type | Department | Care Team | Description | +--------+ + + + + | 09/27/ | [facility] | [facility] | | | | 2009 | Encounter | [facility] | | | | | | [address] | | | | | | [place] | | | | | | [address] | | | | | | [phone] | | | +--------+ + + + [...] [place] | | | | | | [address] | | | | | | | | +--------+---------+ + + + | 11/24/ | Office | Cardiology | [place], | | | 2020 | Visit | | SINDHU Erickson [address] | | | | | | [place], | | | | | | [place] [address] | | | | | | [phone] | | | | | | | | +--------+---------+ + + + documented as of this encounter Visit Diagnoses Not on filedocumented in this encounter"
--- OUTSIDE RECORDS SUMMARY | ~2019-02-28 | XMS | Encounter Summary ---
Demographics + + + | Address | [address] | | | [place] [address] | + + + | Home Phone | | + + + | Preferred Language | Unknown | + + + | Marital Status | Single | + + + | Temple Affiliation | 1041 | + + + | Race | Unknown | + + + | Ethnic Group | Unknown | + + + Author + + + | Author | [facility] | | | and [place] | + + + | Organization | [facility] | | | and [...] Team Providers + +------+ + | Care Configuration Manager Name | Role | Phone | + +------+ + | Juan Cherry DO | PCP | | + +------+ + Reason for Visit + + + | Reason | Comments | + + + | Follow-up | | + + + | Chest Pain | | + + + | Shortness of Breath | | + + + Encounter Details +--------+ + + + + | Date | Type | Department | Care Team | Description | +--------+ + + + + | 01/25/ | Off-Site | [facility] [place] | [place], | Tachycardia (Primary | | 2013 | Visit | CARDIOLOGY [address] | SINDHU Erickson [address] | Dx); Palpitations; | | | | [place], | [place], | Tachyarrhythmia; | | | | [place] [address] | [place] [address] | Other chest pain | | | | [phone] | [phone] | | | | | | | [...] + + + | Blood Pressure | 116/62 | 01/25/2014 10:14 AM | | | | | PST | | + + + + + | Pulse | 87 | 01/25/2014 10:14 AM | | | | | PST | | + + + + + | Temperature | - | - | | + + + + + | Respiratory Rate | 16 | 01/25/2014 10:14 AM | | | | | PST | | + + + + + | Oxygen Saturation | 95% | 01/25/2014 10:14 AM | | | | | PST | | + + + + + | Inhaled Oxygen | - | - | | | Concentration | | | | + + + + + | Weight | 68.9 kg (152 lb) | 01/25/2014 10:14 AM | | | | | PST | | + + + + + | Height | 157.5 cm (5' 2") | 01/25/2014 10:14 AM | | | | | PST | | + + + + + | Body Mass Index | 27.8 | 01/25/2014 10:14 AM | | | | | PST | | + + + + + [...] documented as of this encounter Progress Notes Georgina Elizabeth ARNP - 01/25/2014 10:14 AM PSTFormatting of this note might be different f rom the original. PATIENT NAME: Rosario Malik : 1965: AGE: 49 y.o. PRIMARY CARE: Juan Cherry DO OUTPATIENT FOLLOW UP VISIT Date of Service: 01/25/2014 HISTORY OF PRESENT ILLNESS: Rosario Malik is a 49 y.o. female with history of paroxysmal atrial tachycardia with palpitations, emphysema, hypothyroidism obstructive sleep apnea and nocturnal hypoxemia and bipolar disorder. She is being seen today for follow up palpitations and paroxysmal atrial tachycardia. She was last seen 01/11/2014 at which time she was schedule for an echocardiogram to evalua te for pericarditis and she was prescribed colchicine. Patient did not oyster picker prescription and has not started it. Since that time, she has continue being "extremely tired and my anshu st hurts all the time". She states that her chest pain happens when she exerts herself, alt jaylene she is not very physically active. It also occurs when she walks more than 10 feet. S he states that has been having a lot of palpitations. She had an ER visit for chest pain on 01/20/2014. She had a COPD exacerbation and improved with nebulizations and steroids. MEDICAL, SURGICAL, AND PERSONAL HISTORY Past Medical, Surgical, Family, and Social History are reviewed in EPIC. CURRENT PROBLEMS Patient Active Problem List Diagnosis Hypothyroidism Posttraumatic stress disorder Anxiety disorder BIPOLAR DISORDER UNSPECIFIED Fibromyalgia Insomnia Central sleep apnea COPD (chronic obstructive pulmonary disease) Healthcare maintenance Preventative health care GARRY (obstructive sleep apnea) Multiple personality disorder GERD (gastroesophageal reflux disease) Diverticulosis Insomnia Sprain of chest wall Benign neoplasm of pituitary gland and craniopharyngeal duct (pouch) Status post total hysterectomy Irritable colon Hypoxemia Allergic rhinitis Tachycardia Palpitations Tachyarrhythmia Asthma Emphysema Migraine Pericarditis CURRENT MEDICATIONS Current Outpatient Prescriptions Medication Sig Dispense Refill albuterol (PROAIR HFA) 90 mcg/puff inhaler Inhale 2 puffs into the lungs every 6 hours as needed for Wheezing or Shortness of Breath. 1 Inhaler 5 albuterol-ipratropium (DUONEB) 2.5-0.5 mg/3 mL SOLN Take 3 mLs by nebulization every 4 hours as needed. 360 mL 3 colchicine (COLCRYS) 0.6 mg tablet Take 1 tablet by mouth 2 times daily. 60 tablet 2 DULoxetine (CYMBALTA) 60 MG capsule Take one by mouth daily fluticasone-salmeterol (ADVAIR DISKUS) 500-50 mcg/puff diskus inhaler Inhale 1 puff int o the lungs Twice Daily. 60 each 5 gabapentin (NEURONTIN) 800 MG tablet Take 800 mg by mouth 3 times daily. levothyroxine (SYNTHROID, LEVOTHROID) 75 MCG tablet Take 75 mcg by mouth every morning (before breakfast). LORAZEPAM PO Take by mouth nightly. Multiple Vitamins-Minerals (MULTIVITAMIN PO) Take by mouth Daily. omeprazole (PRILOSEC) 20 mg capsule Take 20 mg by mouth Daily. predniSONE (DELTASONE) 10 mg tablet 40 mg. Take 60mg/day x 7 days, then 30mg/day x 7 da ys, then 15mg/day x 7 days Respiratory Therapy Supplies [facility] Incentive spirometer. Please provide instructions in use. Dx: 848.8 MADELEINE: 3 months 1 each 99 Respiratory Therapy Supplies [facility] Please provide patient with necessary CPAP supplies ( she did not specify, okay to send order as appropriate) Diagnosis Code(s)327.23 . Length of Need 99 months. Please send order to [facility]. 1 each 0 Respiratory Therapy Supplies [facility] Change CPAP back to 11-14 cm H2O. All necessary suppl ies. No oxygen bleed in. Diagnosis Code(s)327.23. Length of Need: Lifetime. Please send orde r to [facility]. This is not a new order, just a change in settings. 1 each 99 rizatriptan (MAXALT) 10 mg tablet Take 1 tablet by mouth as needed for Migraine. May re peat in 2 hours if needed 30 tablet 6 roflumilast (DALIRESP) 500 mcg tablet Take 1 tablet by mouth Daily. 30 tablet 11 SPIRIVA HANDIHALER 18 MCG inhalation capsule INHALE CONTENTS OF ONE CAPSUL VIA HANDIHAL ER DAILY 30 capsule 0 traMADol (ULTRAM) 50 mg tablet Take 50 mg by mouth 4 times daily. ziprasidone (GEODON) 80 MG capsule Take 80 mg by mouth 2 times daily. ALLERGIES Allergies Allergen Reactions Onion Extract Throat Swells Doxycycline Hives Erythromycin Base Other (See Comments) Bloating and swelling, lips swell Nsaids Hives Pork Allergy Meperidine Panic attacks ROS Review of Systems Constitutional: Positive for malaise/fatigue. Respiratory: Positive for shortness of breath. Cardiovascular: Positive for chest pain. Negative for palpitations and leg swelling. Neurological: Positive for dizziness and weakness. Lightheaded = Yes OBJECTIVE: PHYSICAL EXAM BP 116/62 | Pulse 87 | Resp 16 | Ht 1.575 m (5' 2") | Wt 68.947 kg (152 lb) | BMI 27.79 kg/ m2 | SpO2 95% Physical Exam Constitutional: She is oriented to person, place, and time. She appears well-developed and well-nourished. No distress. Female individual without acute distress using oxygen via nasocanula. Neck: Normal carotid pulses, no hepatojugular reflux and no JVD present. Carotid bruit is n ot present. Cardiovascular: Normal rate, regular rhythm, S1 normal, S2 normal, normal heart sounds, int act distal pulses and normal pulses. PMI is not displaced. Exam reveals no gallop, no S3, no S4 and no friction rub. No murmur heard. Pulses: Carotid pulses are 2+ on the right side, and 2+ on the left side. Dorsalis pedis pulses are 2+ on the right side, and 2+ on the left side. No rub. Pulmonary/Chest: Effort normal. No accessory muscle usage. No respiratory distress. She has decreased breath sounds in the right lower field and the left lower field. She has no wheez es. She has no rhonchi. She has no rales. Abdominal: Normal appearance, normal aorta and bowel sounds are normal. She exhibits no abd ominal bruit and no pulsatile midline mass. There is no hepatosplenomegaly. There is no tend erness. Musculoskeletal: She exhibits no edema. Neurological: She is alert and oriented to person, place, and time. Gait normal. Skin: Skin is warm, dry and intact. Psychiatric: Her mood appears anxious. She does not exhibit a depressed mood. ECG: I personally reviewed EKG tracing from 01/25/2014 shows sinus rhythm heart rate 83 bpm See scanned document for further interpretation. LAB RESULTS: LIPID No results found for this basename: chol, trig, ldlcalc, hdl, ldl, calculated, cholhdl, ldl ex, hdlex, trigex, cholex CHEMISTRY Lab Results Component Value Date GLU 152* 07/14/2013 NA 140 07/14/2013 K 3.2* 07/14/2013 CL 107 07/14/2013 CO2 25 07/14/2013 CALCIUM 9.6 07/14/2013 ALKPHOS 80 05/20/2013 AST 28 04/12/2013 AST 28 04/12/2013 ASTEX 27 05/10/2013 ALT 26 04/12/2013 ALT 26 04/12/2013 ALTEX 21 05/10/2013 BILITOT 0.6 05/20/2013 CREA 0.77 12/17/2013 BUN 5* 12/17/2013 EGFR >60 03/22/2013 EGFREX 60 05/10/2013 CREEX 0.8 05/10/2013 HEMATOLOGY Lab Results Component Value Date WBC 13.3* 07/14/2013 HGB 14.2 07/14/2013 HCT 42.9 07/14/2013 PLT 343 07/14/2013 HGBEX 14.5 05/10/2013 I reviewed records from [facility] for emergency department visit o n 01/20/2014 and echocardiogram report from 01/14/2014. Event Monitor 11/17/13, shows sinus rhythm and sinus tachycardia, supraventricular couplets , triplets, bigeminy and runs, possible Afib/Aflutter, supraventricular ectopy. ASSESSMENT: 1. Chest pain: A. She has had complaint of sharp chest pain that is aggravated when she takes deep breath and sits up. Symptom is better when she lays down. She also complained of the trouble josey athing on exertion. She was seen at the ED of [facility] 3 weeks ago and again 1 week ago. B. Echocardiogram 01/14/2014, shows normal left ventricular size, wall thickness and motio n, preserved left ventricular systolic function, LVEF is 65%, grade 1 left ventricular diast olic dysfunction, trace mitral valve regurgitation, trace tricuspid valve the patient, walter l right-sided pressure, normal IVC with normal respiratory collapse, no pericardial effusion noted. C. today, patient continues to have angina on exertion and with deep breathing. She efrain nues to have severe fatigue although she is physically very inactive. Patient has baseline dyspnea from her COPD. She is in a class II of [employer] [employer] functional class. There is no signs and symptoms of overt congestive heart failure. There are no fluid reten tion on physical examination. 2. Palpitation secondary to the paroxysmal atrial tachycardia A. She has been in her usual state of health until about months ago when she started to no analisa the fluctuation of her pulses. She stated her heart rate can go up to 130 per minute w hile she was sitting in a chair doing nothing. B. Echocardiogram, 08/23/2013 normal systolic left ventricular and ventricular function don e at the [facility]. LVEF 78%. C. Holter Monitor 08/16/13 Underlying normal sinus rhythm with rate 56-165 beats per minut e, average rate 91, very rare premature ventricular contractions, Very are premature atrial contractions, and 2 episodes of paroxysmal atrial tachycardia, longest 18 beats, max rte, 15 0 beats per minute. D. Patient was seen by Dr. Ding on 11/19/13. It was planned to put on a event monitor a nd consider flecainide 50 mg twice a day. Because of the concern over interaction with psyc h medications, and it was not started. The result of event monitor is not available at this time. 2. Emphysema/COPD 3. Hypothyroidism 4. Obstructive sleep apnea and nocturnal hypoxemia A. she is using CPAP machine and nighttime oxygen supplement. PLAN: 1. Schedule patient for an exercise Myoview stress test to further evaluate angina 2. Patient could also be a candidate to use beta blockers to help with her palpitations and paroxysmal atrial tachycardia, however, she has a upcoming appointment with Dr. Ding and we will wait for EP to evaluate her and decide treatment. 3. She will follow up in 4 weeks, or sooner with concerns. Portions of this chart may have been created with [employer] voice recognition software. Occasi onal wrong-word or sound-alike substitutions may have occurred due to the inherent cárdenas itations of voice recognition software. Please read the chart carefully and recognize, using context, where these substitutions have occurred. documented in th is encounter Plan of [...] | | | | | | [place] [address] | | | | | | [phone] | | | | | | | | +--------+---------+ + + + + + +--------+ + + | Name | Type | Priori | Associated Diagnoses | Order Schedule | | | | ty | | | + + +--------+ + + | Stress test, | Cardiac | Routin | Tachyarrhythmia | Expected: | | exercise | Services | e | Other chest pain | 01/25/2014, Expires: | | | | | | 01/25/2015 | + + +--------+ + + documented as of this encounter Procedures + +--------+ + + + | Procedure Name | Priori | Date/Time | Associated Diagnosis | Comments | | | ty | | | | + +--------+ + + + | ECG 12 LEAD - PB | Routin | 01/27/2014 | Other chest pain | Results for this | | | e | 10:26 AM | | procedure are in the | | | | PST | | results section. | + +--------+ + + + | ECG - EXTERNAL SCAN | | 01/25/2014 | | Results for this | | | | 12:00 AM | | procedure are in the | | | | PST | | results section. | + +--------+ + + + documented in this encounter Results ECG 12 lead (01/27/2014 10:26 AM PST) + + + | Narrative | Performed At | + + + | SIND[facility] Shafer 01/27/2014 10:26 Patient Name: Rosario | | | Álvaro Malik Date of : 1965 Medical Record Number: | | | [id number] Date: 01/27/2014 Time: 10:20 EKG Interpretation | | | Component Value Range & Units VENTRICULAR RATE EKG 87 BPM | | | ATRIAL RATE 87 BPM P-R INTERVAL 120 ms QRS | | | DURATION 92 ms Q-T INTERVAL 360 ms Q-T INTERVAL | | | (corrected) 437 ms P WAVE ZAXIS degrees QRS AXIS 39 | | | degrees T AXIS 53 degrees INTERPRETATION TEXT: I | | | personally reviewed EKG tracing from 01/25/14: Sinus rhythm with | | | baseline artifact, rate of 87 beats per minute. See scanned | | | document for further interpretation. | | + + + + + | Procedure Note | + + | Ashlee Allison ARNP - 01/27/2014 10:20 AM PST Patient Name: Rosario Malik | | Date of : 1965 : 01/27/2014 Time: | | 10:20 EKG InterpretationComponent Value Range & Units VENTRICULAR RATE EKG 87 BPM | | ATRIAL RATE 87 BPM P-R INTERVAL 120 ms QRS DURATION 92 ms Q-T INTERVAL 360 | | ms Q-T INTERVAL (corrected) 437 ms P WAVE ZAXIS degrees QRS AXIS 39 degrees T | | AXIS 53 degrees INTERPRETATION TEXT:I personally reviewed EKG tracing from 01/25/14: | | Sinus rhythm with baseline artifact, rate of 87 beats per minute. See scanned document | | for further interpretation. | |VENTRICULAR RATE EKG 87 BPM | |ATRIAL RATE 87 BPM | |P-R INTERVAL 120 ms | |QRS DURATION 92 ms | |Q-T INTERVAL 360 ms | |Q-T INTERVAL (corrected) 437 ms | |P WAVE ZAXIS degrees | |QRS AXIS 39 degrees | |T AXIS 53 degrees | | | |INTERPRETATION TEXT: | |I personally reviewed EKG tracing from 01/25/14: Sinus rhythm with baseline artifact, rate o f 87 beats per minute. See scanned document for further interpretation. | + + ECG - EXTERNAL SCAN (01/25/2014 12:00 AM PST) + + + | Narrative | Performed At | + + + | Ordered by an | | | unspecified provider. | | + + + + + | Transcriptions | + + | Rolando Pozo - 01/25/2014 12:00 AM PST | + + documented in this encounter Visit Diagnoses + + | Diagnosis | + + | Tachycardia - Primary Tachycardia, unspecified | + + | Palpitations | + + | Tachyarrhythmia Tachycardia, unspecified | + + | Other chest pain | + + documented in this encounter
--- OUTSIDE RECORDS SUMMARY | ~2019-02-28 | XMS | Encounter Summary ---
Demographics + + + | Address | [address] | | | [place] [address] | + + + | Home Phone | | + + + | Preferred Language | Unknown | + + + | Marital Status | Single | + + + | Restoration Affiliation | 1041 | + + + | Race | Unknown | + + + | Ethnic Group | Unknown | + + + Author + + + | Author | [facility] | | | and [place] | + + + | Organization | [facility] | | | and [...] Team Providers + +------+ + | Care Film Vault Supervisor Name | Role | Phone | + +------+ + | Juan Cherry DO | PCP | | + +------+ + Reason for Visit +--------+ + | Reason | Comments | +--------+ + | COPD | | +--------+ + Evaluate & Treat (Routine) +--------+ + + + + + | Status | Reason | Specialty | Diagnoses / | Referred By | Referred To | | | | | Procedures | Contact | Contact | +--------+ + + + + + | Closed | Specialty | Cardiac | Diagnoses | Sharonda, | [facility] | | | Services | Rehabilitatio | Chronic | MD Jared | | | | Required | n | obstructive | [address] | Rehabilitatio | | | | | pulmonary | [address] | [address] | | | | | disease, | [place], | [place] | | | | | unspecified | [place] [address] | [place], [place] | | | | | COPD type | Phone: | [address] | | | | | (HCC) | [phone] | Phone: | | | | | Pulmonary | Fax: | [phone] | | | | | emphysema, | [phone] | Fax: | | | | | unspecified | | [phone] | | | | | emphysema | | | | | | | type ([facility]) | | | +--------+ + + + + + Encounter Details +--------+---------+ + + + | Date | Type | Department | Care Team | Description | +--------+---------+ + + + | 05/14/ | Office | [facility] | Jared Mcdonough, | Chronic obstructive | | 2017 | Visit | MED CTR CARDIAC | [address] | pulmonary disease, | | | | REHABILITATION [address] | [facility] [place], | unspecified COPD | | | | [address] [place] | [place] [address] | type (HCC) (Primary | | | | [place] [address] | [phone] | Dx); Pulmonary | | | | [phone] | | emphysema, | | | | | | unspecified | | | | | | emphysema type (HCC) | +--------+---------+ + + + Social [...] documented as of this encounter Progress Notes Desean Chris - 05/14/2016 3:[address] [facility] [address] [place] [address] Cardiac Rehab Date: 05/14/2016 Patient Information Patient Name: Rosario Malik Date of : 1965 Age: 51 y.o. Encounter Diagnoses Code Name Primary? J44.9 Chronic obstructive pulmonary disease, unspecified COPD type (HCC) Yes J43.9 Pulmonary emphysema, unspecified emphysema type (HCC) Number of Visits Approved: 10 (7) Taken Medications Today? Yes Any Changes in Medications? No Any Problems to Report? No Pain Level? 06/03 Fall Risk/Liquid Oxygen Denies any adverse symptoms during exercise. Sinus rhythm without ectopy. SBP with no change during exertion. Compliant with medications and therapeutic lifestyle changes. Continue monitored exercise. Any abnormal vital signs or rhythm strips will be reported in progress note. Electronically signed by: Desean Chris, 05/14/2016 15:39 Patient Name: Rosario Malik/: 1965/ documented in this encounte r Plan of Treatment +--------+---------+ + + + | Date | Type | Specialty | Care Team | Description | +--------+---------+ + + + | 03/31/ | Office | Pulmonology | Mukul Clark MD | | | 2019 | Visit | | [address] | | | | | | [place] | | | | | | [address] | | | | | | | | +--------+---------+ + + + | 11/24/ | Office | Cardiology | [place], | | | 2019 | Visit | | SINDHU Erickson [address] | | | | | | [place], | | | | | | [place] [address] | | | | | | [phone] | | | | | | | | +--------+---------+ + + + documented as of this encounter Visit Diagnoses + + | Diagnosis | + + | Chronic obstructive pulmonary disease, unspecified COPD type (HCC) - Primary | + + | Pulmonary emphysema, unspecified emphysema type (HCC) | + + documented in this encounter"
--- OUTSIDE RECORDS SUMMARY | ~2019-02-28 | XMS | Encounter Summary ---
Demographics + + + | Address | [address] | | | [place] [address] | + + + | Home Phone | | + + + | Preferred Language | Unknown | + + + | Marital Status | Single | + + + | Rastafari Affiliation | 1041 | + + + | Race | Unknown | + + + | Ethnic Group | Unknown | + + + Author + + + | Author | [facility] | | | and [place] | + + + | Organization | [facility] | | | [...] Team Providers + +------+ + | Care Sql Programmer Name | Role | Phone | + +------+ + | Juan Cherry DO | PCP | | + +------+ + Encounter Details +--------+ + + + + | Date | Type | Department | Care Team | Description | +--------+ + + + + | 07/15/ | Orders Only | [facility] [place] | Kevin Sandoval, | Chronic airway | | 2013 | | PULMONARY [address] | MD [address] | obstruction, not | | | | [place], | [place], [place] | elsewhere classified | | | | [place] [address] | [id number] | ([facility]) (Primary Dx) | | | | [phone] | | | +--------+ + + + [...] +---------+ + | No | | | | + + +---------+ + + + [...] [place] | | | | | | [address] | | | | | | | | +--------+---------+ + + + | 11/24/ | Office | Cardiology | [place], | | | 2019 | Visit | | SINDHU Erickson [address] | | | | | | [place], | | | | | | [place] [address] | | | | | | [phone] | | | | | | | | +--------+---------+ + + + documented as of this encounter Visit Diagnoses + + | Diagnosis | + + | Chronic airway obstruction, not elsewhere classified - Primary | + + documented in this encounter"
--- OUTSIDE RECORDS SUMMARY | ~2019-02-28 | XMS | Encounter Summary ---
Demographics + + + | Address | [address] | | | [place] [address] | + + + | Home Phone | | + + + | Preferred Language | Unknown | + + + | Marital Status | Single | + + + | Lutheran Affiliation | 1041 | + + + | Race | Unknown | + + + | Ethnic Group | Unknown | + + + Author + + + | Author | [facility] | | | and [place] | + + + | Organization | [facility] | | [...] Team Providers + +------+ + | Care Cancer Registry Manager Name | Role | Phone | + +------+ + PCP | Unavailable | + +------+ + Encounter Details +--------+ + + + + | Date | Type | Department | Care Team | Description | +--------+ + + + + | 01/24/ | [facility] | [facility] | | | | 2008 - | Encounter | MED CTR OP REHAB | | | | | | [address] [place] | | | | 02/23/ | | [place] [address] | | | | 2008 | | [phone] | | | +--------+ + + + [...] [place] | | | | | | [address] | | | | | | | | +--------+---------+ + + + | 11/24/ | Office | Cardiology | [place], | | | 2020 | Visit | | SINDHU Erickson [address] | | | | | | [place], | | | | | | [place] [address] | | | | | | [phone] | | | | | | | | +--------+---------+ + + + documented as of this encounter Visit Diagnoses Not on filedocumented in this encounter"
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
--- OUTSIDE RECORDS SUMMARY | ~2019-02-28 | XMS | Encounter Summary ---
Demographics + + + | Address | [address] | | | [place] [address] | + + + | Home Phone | | + + + | Preferred Language | Unknown | + + + | Marital Status | Single | + + + | Muslim Affiliation | 1041 | + + + | Race | Unknown | + + + | Ethnic Group | Unknown | + + + Author + + + | Author | [facility] | | | and [place] | + + + | Organization | [facility] | | | [...] Team Providers + +------+ + | Care Granite Countertop Installer Name | Role | Phone | + +------+ + | Ozzy Delcid MD | PCP | | + +------+ + Encounter Details +--------+ + + + + | Date | Type | Department | Care Team | Description | +--------+ + + + + | 10/08/ | Hospital | [facility] | [place], | | | 2011 | Encounter | [facility] LAB[facility]ORY | Loreta Alonso MD | | | | | [address] | | | | | | [place] | | | | | | [address] | | | | | | [phone] | | | +--------+ + + + [...] [place] | | | | | | [address] | | | | | | | | +--------+---------+ + + + | 11/24/ | Office | Cardiology | [place], | | | 2019 | Visit | | SINDHU Erickson [address] | | | | | | [place], | | | | | | [place] [address] | | | | | | [phone] | | | | | | | | +--------+---------+ + + + documented as of this encounter Procedures + +--------+ + + + | Procedure Name | Priori | Date/Time | Associated Diagnosis | Comments | | | ty | | | | + +--------+ + + + | TSH | Routin | 10/09/2011 | | Results for this | | | e | 12:32 PM | | procedure are in the | | | | PDT | | results section. | + +--------+ + + + documented in this encounter Results TSH (10/09/2011 12:32 PM PDT) + + + + + + | Component | Value | Ref Range | Performed | Pathologist | | | | | At | Signature | + + + + + + | TSH | 0.36Comment: Testing | 0.34 - 5.60 | [facility] | | | | performed on the [facility] | uIU/mL | [facility] | | | | [facility] | | MEDICAL | | | | Analyzer. | | CENTER - | | | | | | LABORATORY | | + + + + + + + + | Specimen | + + | | + + + + + + + | Performing | Address | City/State/Zipcode | Phone Number | | Organization | | | | + + + + + | [facility] | [address] | [place], [place] | [phone] | | [facility] | | [address] | | | - LABORATORY | | | | + + + + + | [facility] | [address] | [place], [place] | | | [facility] | | [address] | | | - LABORATORY | | | | + + + + + documented in this encounter Visit Diagnoses Not on filedocumented in this encounter"
--- OUTSIDE RECORDS SUMMARY | ~2019-02-28 | XMS | Encounter Summary ---
Demographics + + + | Address | [address] | | | [place] [address] | + + + | Home Phone | | + + + | Preferred Language | Unknown | + + + | Marital Status | Single | + + + | Jainism Affiliation | 1041 | + + + [...] Team Providers + +------+ + | Care Construction Driller Name | Role | Phone | + +------+ + | Juan Cherry DO | PCP | | + +------+ + Encounter Details +--------+ + + + + | Date | Type | Department | Care Team | Description | +--------+ + + + + | 07/31/ | Abstract | [facility] | [place], | | | 2015 | | CARDIOLOGY [address] | SINDHU Erickson [address] | | | | | [place], | [place], | | | | | [place] [address] | [place] [address] | | | | | [phone] | | | | | | | [...] [place] | | | | | | [address] | | | | | | | | +--------+---------+ + + + | 11/24/ | Office | Cardiology | [place], | | | 2019 | Visit | | SINDHU Erickson [address] | | | | | | [place], | | | | | | [place] [address] | | | | | | [phone] | | | | | | | | +--------+---------+ + + + documented as of this encounter Procedures + +--------+ + + + | Procedure Name | Priori | Date/Time | Associated Diagnosis | Comments | | | ty | | | | + +--------+ + + + | EXTERNAL LAB: [facility] | Routin | 07/03/2015 | | Results for this | | | e | | | procedure are in the | | | | | | results section. | + +--------+ + + + | EXTERNAL LAB: | Routin | 07/03/2015 | | Results for this | | GLUCOSE | e | | | procedure are in the | | | | | | results section. | + +--------+ + + + | EXTERNAL LAB: ALT | Routin | 07/03/2015 | | Results for this | | | e | | | procedure are in the | | | | | | results section. | + +--------+ + + + | EXTERNAL LAB: AST | Routin | 07/03/2015 | | Results for this | | | e | | | procedure are in the | | | | | | results section. | + +--------+ + + + | EXTERNAL LAB: | Routin | 07/03/2015 | | Results for this | | ALKALINE PHOSPHATASE | e | | | procedure are in the | | | | | | results section. | + +--------+ + + + | EXTERNAL LAB: | Routin | 07/03/2015 | | Results for this | | BILIRUBIN, TOTAL | e | | | procedure are in the | | | | | | results section. | + +--------+ + + + | EXTERNAL LAB: | Routin | 07/03/2015 | | Results for this | | ALBUMIN | e | | | procedure are in the | | | | | | results section. | + +--------+ + + + | EXTERNAL LAB: | Routin | 07/03/2015 | | Results for this | | PROTEIN, TOTAL | e | | | procedure are in the | | | | | | results section. | + +--------+ + + + | EXTERNAL LAB: | Routin | 07/03/2015 | | Results for this | | CALCIUM | e | | | procedure are in the | | | | | | results section. | + +--------+ + + + | EXTERNAL LAB: CARBON | Routin | 07/03/2015 | | Results for this | | DIOXIDE | e | | | procedure are in the | | | | | | results section. | + +--------+ + + + | EXTERNAL LAB: | Routin | 07/03/2015 | | Results for this | | CHLORIDE | e | | | procedure are in the | | | | | | results section. | + +--------+ + + + | EXTERNAL LAB: | Routin | 07/03/2015 | | Results for this | | POTASSIUM | e | | | procedure are in the | | | | | | results section. | + +--------+ + + + | EXTERNAL LAB: SODIUM | Routin | 07/03/2015 | | Results for this | | | e | | | procedure are in the | | | | | | results section. | + +--------+ + + + | EXTERNAL LAB: EGFR | Routin | 07/03/2015 | | Results for this | | | e | | | procedure are in the | | | | | | results section. | + +--------+ + + + | EXTERNAL LAB: | Routin | 07/03/2015 | | Results for this | | CREATININE | e | | | procedure are in the | | | | | | results section. | + +--------+ + + + | COMPREHENSIVE | Routin | 07/03/2015 | | Results for this | | METABOLIC PANEL | e | | | procedure are in the | | | | | | results section. | + +--------+ + + + documented in this encounter Results Comprehensive Metabolic Panel (07/03/2015) + +-------+ + + + | Component | Value | Ref Range | Performed | Pathologist | | | | | At | Signature | + +-------+ + + + | Anion Gap | 10 | 3 - 12 mmol/L | [facility] | | | | | | [facility] | | | | | | MEDICAL | | | | | | [facility] - | | | | | | LABORATORY | | + +-------+ + + + | BUN/Creatin | 7.06 | | [facility] | | | ine Ratio | | | [facility] | | [...] | + + + + + | [facility] | [address] | [place] | [phone] | | [facility] | | [address] | | | - LABORATORY | | | | + + + + + External Lab: [facility] (07/03/2015) + +-------+ + + + | Component | Value | Ref Range | Performed | Pathologist | | | | | At | Signature | + +-------+ + + + | BUN, | 6 (A) | 7 - 18 | EXTERNAL | | | External | | | LAB | | + +-------+ + + + + + | Resulting Agency Comment | + + | [facility] | + + + +---------+ + + | Performing | Address | City/State/Zipcode | Phone Number | | Organization | | | | + +---------+ + + | EXTERNAL LAB | | | | + +---------+ + + External Lab: Glucose (07/03/2015) + +-------+ + + + | Component | Value | Ref Range | Performed | Pathologist | | | | | At | Signature | + +-------+ + + + | Glucose, | 85 | 70 - 100 | EXTERNAL | | | External | | | LAB | | + +-------+ + + + + + | Resulting Agency Comment | + + | [facility] | + + + +---------+ + + | Performing | Address | City/State/Zipcode | Phone Number | | Organization | | | | + +---------+ + + | EXTERNAL LAB | | | | + +---------+ + + External Lab: ALT (07/03/2015) + +-------+ + + + | Component | Value | Ref Range | Performed | Pathologist | | | | | At | Signature | + +-------+ + + + | ALT, | 16 | 10 - 48 | EXTERNAL | | | External | | | LAB | | + +-------+ + + + + + | Resulting Agency Comment | + + | [facility] | + + + +---------+ + + | Performing | Address | City/State/Zipcode | Phone Number | | Organization | | | | + +---------+ + + | EXTERNAL LAB | | | | + +---------+ + + External Lab: AST (07/03/2015) + +-------+ + + + | Component | Value | Ref Range | Performed | Pathologist | | | | | At | Signature | + +-------+ + + + | AST, | 23 | 10 - 42 | EXTERNAL | | | External | | | LAB | | + +-------+ + + + + + | Resulting Agency Comment | + + | [facility] | + + + +---------+ + + | Performing | Address | City/State/Zipcode | Phone Number | | Organization | | | | + +---------+ + + | EXTERNAL LAB | | | | + +---------+ + + External Lab: Alkaline Phosphatase (07/03/2015) + +-------+ + + + | Component | Value | Ref Range | Performed | Pathologist | | | | | At | Signature | + +-------+ + + + | ALP, | 75 | 32 - 92 | EXTERNAL | | | External | | | LAB | | + +-------+ + + + + + | Resulting Agency Comment | + + | [facility] | + + + +---------+ + + | Performing | Address | City/State/Zipcode | Phone Number | | Organization | | | | + +---------+ + + | EXTERNAL LAB | | | | + +---------+ + + External Lab: Bilirubin, Total (07/03/2015) + +-------+ + + + | Component | Value | Ref Range | Performed | Pathologist | | | | | At | Signature | + +-------+ + + + | Bilirubin, | 0.4 | 0.2 - 1.2 | EXTERNAL | | | Total, | | | LAB | | | External | | | | | + +-------+ + + + + + | Resulting Agency Comment | + + | [facility] | + + + +---------+ + + | Performing | Address | City/State/Zipcode | Phone Number | | Organization | | | | + +---------+ + + | EXTERNAL LAB | | | | + +---------+ + + External Lab: Albumin (07/03/2015) + +-------+ + + + | Component | Value | Ref Range | Performed | Pathologist | | | | | At | Signature | + +-------+ + + + | Albumin, | 3.8 | 3.5 - 5 | EXTERNAL | | | External | | | LAB | | + +-------+ + + + + + | Resulting Agency Comment | + + | [facility] | + + + +---------+ + + | Performing | Address | City/State/Zipcode | Phone Number | | Organization | | | | + +---------+ + + | EXTERNAL LAB | | | | + +---------+ + + External Lab: Protein, Total (07/03/2015) + +-------+ + + + | Component | Value | Ref Range | Performed | Pathologist | | | | | At | Signature | + +-------+ + + + | Protein, | 6.5 | 6 - 8.1 | EXTERNAL | | | Total, | | | LAB | | | External | | | | | + +-------+ + + + + + | Resulting Agency Comment | + + | [facility] | + + + +---------+ + + | Performing | Address | City/State/Zipcode | Phone Number | | Organization | | | | + +---------+ + + | EXTERNAL LAB | | | | + +---------+ + + External Lab: Calcium (07/03/2015) + +-------+ + + + | Component | Value | Ref Range | Performed | Pathologist | | | | | At | Signature | + +-------+ + + + | Calcium, | 9.3 | 8.4 - 10.5 | EXTERNAL | | | External | | | LAB | | + +-------+ + + + + + | Resulting Agency Comment | + + | [facility] | + + + +---------+ + + | Performing | Address | City/State/Zipcode | Phone Number | | Organization | | | | + +---------+ + + | EXTERNAL LAB | | | | + +---------+ + + External Lab: Carbon Dioxide (07/03/2015) + +-------+ + + + | Component | Value | Ref Range | Performed | Pathologist | | | | | At | Signature | + +-------+ + + + | Carbon | 28 | 21 - 31 | EXTERNAL | | | Dioxide, | | | LAB | | | External | | | | | + +-------+ + + + + + | Resulting Agency Comment | + + | [facility] | + + + +---------+ + + | Performing | Address | City/State/Zipcode | Phone Number | | Organization | | | | + +---------+ + + | EXTERNAL LAB | | | | + +---------+ + + External Lab: Chloride (07/03/2015) + +-------+ + + + | Component | Value | Ref Range | Performed | Pathologist | | | | | At | Signature | + +-------+ + + + | Chloride, | 103 | 98 - 107 | EXTERNAL | | | External | | | LAB | | + +-------+ + + + + + | Resulting Agency Comment | + + | [facility] | + + + +---------+ + + | Performing | Address | City/State/Zipcode | Phone Number | | Organization | | | | + +---------+ + + | EXTERNAL LAB | | | | + +---------+ + + External Lab: Potassium (07/03/2015) + +-------+ + + + | Component | Value | Ref Range | Performed | Pathologist | | | | | At | Signature | + +-------+ + + + | Potassium, | 4.5 | 3.6 - 5 | EXTERNAL | | | External | | | LAB | | + +-------+ + + + + + | Resulting Agency Comment | + + | [facility] | + + + +---------+ + + | Performing | Address | City/State/Zipcode | Phone Number | | Organization | | | | + +---------+ + + | EXTERNAL LAB | | | | + +---------+ + + External Lab: Sodium (07/03/2015) + +-------+ + + + | Component | Value | Ref Range | Performed | Pathologist | | | | | At | Signature | + +-------+ + + + | Sodium, | 141 | 135 - 145 | EXTERNAL | | | External | | | LAB | | + +-------+ + + + + + | Resulting Agency Comment | + + | [facility] | + + + +---------+ + + | Performing | Address | City/State/Zipcode | Phone Number | | Organization | | | | + +---------+ + + | EXTERNAL LAB | | | | + +---------+ + + External Lab: eGFR (07/03/2015) + +-------+ + + + | Component | Value | Ref Range | Performed | Pathologist | | | | | At | Signature | + +-------+ + + + | eGFR, | >60 | 60 - 99,999 | EXTERNAL | | | External | | | LAB | | + +-------+ + + + + + | Specimen | + + | Blood specimen | | (specimen) | + + + + | Resulting Agency Comment | + + | [facility] | + + + +---------+ + + | Performing | Address | City/State/Zipcode | Phone Number | | Organization | | | | + +---------+ + + | EXTERNAL LAB | | | | + +---------+ + + External Lab: Creatinine (07/03/2015) + +-------+ + + + | Component | Value | Ref Range | Performed | Pathologist | | | | | At | Signature | + +-------+ + + + | Creatinine, | 0.9 | 0.6 - 1.3 | EXTERNAL | | | External | | | LAB | | + +-------+ + + + + + | Specimen | + + | Blood specimen | | (specimen) | + + + + | Resulting Agency Comment | + + | [facility] | + + + +---------+ + + | Performing | Address | City/State/Zipcode | Phone Number | | Organization | | | | + +---------+ + + | EXTERNAL LAB | | | | + +---------+ + + documented in this encounter Visit Diagnoses Not on filedocumented in this encounter"
--- OUTSIDE RECORDS SUMMARY | ~2019-02-28 | XMS | Encounter Summary ---
Demographics + + + | Address | [address] | | | [place] [address] | + + + | Home Phone | | + + + | Preferred Language | Unknown | + + + | Marital Status | Single | + + + | Anglican Affiliation | 1041 | + + + | Race | Unknown | + + + | Ethnic Group | Unknown | + + + Author + + + | Author | [facility] | | | and [place] | + + + | Organization | [facility] | | | [...] Team Providers + +------+ + | Care Lithograph Operator Name | Role | Phone | + +------+ + | Juan Cherry DO | PCP | | + +------+ + Encounter Details +--------+ + + + + | Date | Type | Department | Care Team | Description | +--------+ + + + + | 09/09/ | Hospital | [facility] [place] [place] GENER[facility] IP | Conversion | Pain | | 2015 | Encounter | CONVERSION DEP [address] | Transaction, | | | | | [address] | Provider Unknown | | | | | [place], [place] | [phone] | | | | | [address] | | | | | | [phone] | | | +--------+ + + + [...] + + + +---------+ + + | oxygen | Inhale into the | | 0 | | | | | lungs continuous. 3 | | | | | | | liters while awake | | | | | + + + +---------+ + + | predniSONE | Take 10 mg by mouth | | 0 | | | | (DELTASONE) 10 mg | Daily. | | | | | | tablet [...] | | | | | order to [facility]. | | | | | [...] | | | | send order to [facility] | | | | | | | [facility]. | | | | | | [...] 3 mLs by | 360 mL | 5 | 08/25/19 | | | albuterol-ipratropiu | nebulization every 4 | | | 15 | 8 | | m (DUONEB) 2.5-0.5 | hours as needed. | | | | | | mg/3 mL | | | | | | | SOLNIndications: | | | | | | | COPD (chronic | | | | | | | obstructive | | | | | | | pulmonary disease) | | | | | | | ([facility]) | | | | | | + + + +---------+ + + | alendronate | Take 70 mg by mouth | | 0 | | | | (FOSAMAX) 70 mg | every 7 days. | | | | 6 | | tablet | | | | | | + + + +---------+ + + | | Inhale 2 puffs into | 1 | 5 | 08/25/19 | | | fluticasone-salmeter | the lungs 2 times | Inhaler | | 15 | 8 | | ol (ADVAIR HFA) | daily. | | | | | | 115-21 MCG/ACT | | | | | | | inhalerIndications: | | | | | | | COPD (chronic | | | | | | | obstructive | | | | | | | pulmonary disease) | | | | | | | (HCC) | | | | | | + + + +---------+ + + | levofloxacin | Take 500 mg by mouth | | 0 | | | | (LEVAQUIN) 500 mg | Daily. | | | | 5 | | tablet | | [...] + + + +---------+ + + | metoprolol | Take 0.5 tablets by | 30 | 5 | 08/18/19 | | | tartrate (LOPRESSOR) | mouth 2 times daily. | tablet | | 15 | 5 | | 25 mg tablet | | | | | | [...] Take 1 tablet by | 30 | 3 | 05/10/19 | | | (DALIRESP) 500 mcg | mouth Daily. | tablet | | 15 | 5 | | tablet | | | | | | + + + +---------+ + + | tiotropium | Inhale 2 puffs into | | 0 | | | | (SPIRIVA RESPIMAT) | the lungs Daily. | | | | 6 | | 2.5 mcg/puff inhaler | | | | | | [...] | | | | [place] | | | | | | [id number] | | | | | | | | +--------+---------+ + + + | 11/24/ | Office | Cardiology | [place], | | | 2019 | Visit | | SINDHU Erickson [address] | | | | | | [place], | | | | | | [place] [address] | | | | | | [phone] | | | | | | | | +--------+---------+ + + + documented as of this encounter Procedures + +--------+ + + + | Procedure Name | Priori | Date/Time | Associated Diagnosis | Comments | | | ty | | | | + +--------+ + + + | XR CHEST 1 VIEW | Routin | 07/14/2013 | | Results for this | | | e | 1:11 AM | | procedure are in the | | | | PDT | | results section. | + +--------+ + + + documented in this encounter Results XR Chest 1 Vw (07/14/2013 1:11 AM PDT) + + | Specimen | + + | | + + + + + | Narrative | Performed At | + + + | This is a non-reportable procedure without a radiologist report and | | | is used for image storage only | | + + + + + | Procedure Note | + + | Roger Mcbride - 10/09/2018 12:59 AM PDT This is a non-reportable procedure | | without a radiologist report and isused for image storage only | + + documented in this encounter Visit Diagnoses + + | Diagnosis | + + | Pain Generalized pain | + + documented in this encounter"
--- OUTSIDE RECORDS SUMMARY | ~2019-02-28 | XMS | Encounter Summary ---
Demographics + + + | Address | [address] | | | [place] [address] | + + + | Home Phone [...] Team Providers + +------+ + | Care Prop Maker Name | Role | Phone | + +------+ + PCP | Unavailable | + +------+ + Encounter Details +--------+ + + + + | Date | Type | Department | Care Team | Description | +--------+ + + + + | 08/18/ | Hospital | [facility] | Lencho Goss MD | | | 2000 | Encounter | MED CTR XRAY [address] | | | | | [place] | [address] [place], [place] | | | | | [place] [address] | [address] | | | | | [phone] | | | +--------+ + + + [...] [place] | | | | | | [address] | | | | | | | | +--------+---------+ + + + | 11/24/ | Office | Cardiology | [place], | | | 2019 | Visit | | SINDHU Erickson [address] | | | | | | [place] | | | | | | [place] [address] | | | | | | [phone] | | | | | | | | +--------+---------+ + + + documented as of this encounter Visit Diagnoses Not on filedocumented in this encounter"
--- OUTSIDE RECORDS SUMMARY | ~2019-02-28 | XMS | Encounter Summary ---
Demographics + + + | Address | [address] | | | [place] [address] | + + + | Home Phone | | + + + | Preferred Language | Unknown | + + + | Marital Status | Single | + + + | Voodoo Affiliation | 1041 | + + + | Race | Unknown | + + + | Ethnic Group | Unknown | + + + Author + + + | Author | [facility] | | | and [place] | + + + | Organization | [facility] | | [...] + +------+ + | Care Director Of Neurology Name | Role | Phone | + +------+ + PCP | Unavailable | + +------+ + Encounter Details +--------+ + + + + | Date | Type | Department | Care Team | Description | +--------+ + + + + | 10/11/ | Hospital | [facility] GENER[facility] OP | Berna Glass MD | HEADACHE; | | 2010 | Encounter | CONVERSION [address] | [address] | Diplopia; | | | | [address] | [place] [address] | Dizziness | | | | [place], [place] | [phone] | | | | | [address] | | | | | | [phone] | | | +--------+ + + + [...] [place] | | | | | | [address] | | | | | | | | +--------+---------+ + + + | 11/24/ | Office | Cardiology | [place], | | | 2019 | Visit | | SINDHU Erickson [address] | | | | | | [place], | | | | | | [place] [address] | | | | | | [phone] | | | | | | | | +--------+---------+ + + + documented as of this encounter Procedures + +--------+ + + + | Procedure Name | Priori | Date/Time | Associated Diagnosis | Comments | | | ty | | | | + +--------+ + + + | CT ANGIOGRAM HEAD W | Routin | 10/11/2010 | | Results for this | | CONTRAST | e | 12:12 PM | | procedure are in the | | | | PDT | | results section. | + +--------+ + + + documented in this encounter Results CT Angiogram Head w Contrast (10/11/2010 12:12 PM PDT) + + | Specimen | + + | | + + + + + | Narrative | Performed At | + + + | [place] [id number] Ph: | | | Patient Name: JADYN SCHMITZ Date of : | | | 1965 Medical Record: [id number] Account: [id number] | | | Exam Date/Time: 10/11/2010 12:00 Ordering | | | Physician: BERNA GLASS Order Detail: [id number] Exam Description: CT | | | CTA HEAD | | | | | | Jadyn Schmitz CTA head October 11, 2010 HISTORY: | | | 44-year-old female with occipital headaches, dizziness, and diplopia. | | | TECHNIQUE: Axial 0.625-mm images were acquired from the skull | | | base to the cranial vertex according to a CT angiography protocol. | | | Additionally, 5-mm axial precontrast and post-contrast images of the | | | head were acquired from the foramen magnum through the cranial | | | vertex. Multiplanar CT angiographic MIP reconstructions were | | | performed. The data set was also examined with Arithmatica 3D software | | | for evaluation of the cerebral vasculature. IV contrast: 100 mL | | | IsoVue 370 COMPARISON: None. FINDINGS: CT HEAD No acute | | | intraaxial hemorrhage, midline shift, mass effect, or cerebral edema. | | | The ventricles, cisterns, and sulci are normal in size and | | | configuration. Normal oates-white matter differentiation. No extraaxial | | | fluid collections. Following contrast administration, no | | | abnormal enhancement is seen in the brain parenchyma, leptomeninges, | | | or dura. Also, no abnormal enhancement or mass effect in the region | | | of the infundibulum or optic chiasm. The vascular structures enhance | | | normally. The dural venous sinuses are patent. Incidentally noted | | | prominence of the right jugular bulb. The orbits and their | | | contents are normal. The paranasal sinuses and mastoid air cells are | | | well aerated. The osseous structures of the calvaria do not | | | demonstrate fracture or destructive change. CT ANGIOGRAM HEAD The | | | left vertebral artery is dominant. The basilar artery is normal in | | | size and contour and gives rise to the superior cerebellar arteries | | | bilaterally and the left posterior cerebral artery. origin of | | | the right posterior cerebral artery from the ICA with a | | | hypoplastic/diminutive right P1 segment arising from the basilar | | | artery. The left PCOM is present. The distal internal carotid | | | arteries are normal in caliber. At the carotid terminus, normal | | | caliber A1 and M1 segments of the anterior cerebral and middle | | | cerebral arteries are noted. The right A1 is smaller in caliber | | | compared to the left. An ACOM is present. The distal portions of | | | the anterior cerebral, middle cerebral and posterior cerebral | | | arteries are normal. No stenosis, occlusion, or aneurysm is | | | identified. No evidence of vasospasm or vasculitis is noted. | | | IMPRESSION: 1. Brain is negative for acute pathology. 2. No | | | abnormal enhancement noted. 3. Normal CT angiogram of the head | | | without evidence of stenosis, occlusion, or aneurysm in the cerebral | | | arteries. | | | 3:57 PM | | + + + + + | Procedure Note | + + | Roger Mcbride Conversion - 10/17/2018 5:21 PM PDT | | [facility] | | [facility] [address] | | | | | | Patient Name: JADYN SCHMITZ W | | Date of : 1965 | | Medical Record: [id number] | | Account: [id number] | | | | | | Exam Date/Time: 10/11/2010 12:00 | | Ordering Physician: BERNA GLASS | | Order Detail: [id number] | | Exam Description: CT CTA HEAD | | | | Jadyn Schmitz W | | CTA head | | October 11, 2010 | | | | HISTORY: | | 44-year-old female with occipital headaches, dizziness, and diplopia. | | | | TECHNIQUE: | | Axial 0.625-mm images were acquired from the skull base to the cranial | | vertex according to a CT angiography protocol. Additionally, 5-mm axial | | precontrast and post-contrast images of the head were acquired from the | | foramen magnum through the cranial vertex. Multiplanar CT angiographic MIP | | reconstructions were performed. The data set was also examined with | | Arithmatica 3D software for evaluation of the cerebral vasculature. | | IV contrast: 100 mL IsoVue 370 | | | | COMPARISON: None. | | | | FINDINGS: | | | | CT HEAD | | No acute intraaxial hemorrhage, midline shift, mass effect, or cerebral | | edema. The ventricles, cisterns, and sulci are normal in size and | | configuration. Normal oates-white matter differentiation. No extraaxial | | fluid collections. | | | | Following contrast administration, no abnormal enhancement is seen in the | | brain parenchyma, leptomeninges, or dura. Also, no abnormal enhancement or | | mass effect in the region of the infundibulum or optic chiasm. The vascular | | structures enhance normally. The dural venous sinuses are patent. | | Incidentally noted prominence of the right jugular bulb. | | | | The orbits and their contents are normal. The paranasal sinuses and mastoid | | air cells are well aerated. The osseous structures of the calvaria do not | | demonstrate fracture or destructive change. | | | | CT ANGIOGRAM HEAD | | The left vertebral artery is dominant. The basilar artery is normal in size | | and contour and gives rise to the superior cerebellar arteries bilaterally | | and the left posterior cerebral artery. origin of the right | | posterior cerebral artery from the ICA with a hypoplastic/diminutive right | | P1 segment arising from the basilar artery. The left PCOM is present. The | | distal internal carotid arteries are normal in caliber. At the carotid | | terminus, normal caliber A1 and M1 segments of the anterior cerebral and | | middle cerebral arteries are noted. The right A1 is smaller in caliber | | compared to the left. An ACOM is present. The distal portions of the | | anterior cerebral, middle cerebral and posterior cerebral arteries are | | normal. No stenosis, occlusion, or aneurysm is identified. No evidence of | | vasospasm or vasculitis is noted. | | | | | | IMPRESSION: | | 1. Brain is negative for acute pathology. | | 2. No abnormal enhancement noted. | | 3. Normal CT angiogram of the head without evidence of stenosis, occlusion, | | or aneurysm in the cerebral arteries. | | | | | + + documented in this encounter Visit Diagnoses + + | Diagnosis | + + | Headache(784.0) Headache | + + | Diplopia | + + | Dizziness Dizziness and giddiness | + + documented in this encounter"
--- OUTSIDE RECORDS SUMMARY | ~2019-02-28 | XMS | Encounter Summary ---
Demographics + + + | Address | [address] | | | [place] [address] | + + + | Home Phone | | + + + | Preferred Language | Unknown | + + + | Marital Status | Single | + + + | Spiritism Affiliation | 1041 | + + + | Race | Unknown | + + + | Ethnic Group | Unknown | + + + Author + + + | Author | [facility] | | | and [place] | + + + | Organization | [facility] | | [...] Team Providers + +------+ + | Care Fire Lookout Name | Role | Phone | + +------+ + | Juan Cherry DO | PCP | | + +------+ + Reason for Visit + + + | Reason | Comments | + + + | Shortness of Breath | | + + + Encounter Details +--------+ + + + + | Date | Type | Department | Care Team | Description | +--------+ + + + + | 08/26/ | Emergency | [facility] | Ozzie Hayes | COPD (chronic | | 2015 | | MED CTR EMERGENCY | MD Ran [address] | obstructive | | | | [place] [address] | [facility] | pulmonary disease) | | | | [place] | [place] [address] | ([facility]) (Primary Dx) | | | | [address] | [phone] | | | | | [phone] | | | +--------+ + + + [...] + + + | Blood Pressure | 106/59 | 08/26/2014 5:02 AM | | | | | PDT | | + + + + + | Pulse | 85 | 08/26/2014 5:03 AM | | | | | PDT | | + + + + + | Temperature | - | - | | + + + + + | Respiratory Rate | 22 | 08/26/2014 5:02 AM | | | | | PDT | | + + + + + | Oxygen Saturation | 94% | 08/26/2014 5:03 AM | | | | | PDT | | + + + + + | Inhaled Oxygen | - | - | | | Concentration | | | | + + + + + | Weight | 74.4 kg (164 lb) | 08/26/2014 4:50 AM | | | | | PDT | | + + + + + | Height | 154.9 cm (5' 0.98") | 08/26/2014 4:50 AM | | | | | PDT | | + + + + + | Body Mass Index | 31 | 08/26/2014 4:50 AM | | | | | PDT [...] + + documented as of this encounter Discharge Instructions Instructions Ozzie Hayes MD - 08/26/2014Return with fever, increasing cough or s ecretions, chest pain, recurrent difficulty breathing, or other concerns. Continue your brian e medications as directed. Follow-up with your doctor for recheck. AttachmentsThe following attachments cannot be sent through Care Everywhere.COPD, WHAT IS ( PANAMANIAN)documented in this encounter Medications at Time of Discharge [...] | | | | | order to [facility]. | | | | | [...] | | | | send order to [facility] | | | | | | | [facility]. | | | | | | | [...] | | | | | | | ([facility]) | | | | | | + [...] | | | | | | | ([facility]) | | | | | | + + + +---------+ + + | Ketotifen Fumarate | Apply to eye as | | 0 | | | | (THERA TEARS | needed. | | | | 5 | | ALLERGY OP) | | | | | | + [...] +---------+ + + | predniSONE | Take 1 tablet by | 15 | 3 | 08/18/19 | | | (DELTASONE) 10 mg | mouth Every other | tablet | | 15 | 5 | | tabletIndications: | day. | | | | | | COPD (chronic | | | | | | | obstructive | | | | | | | pulmonary disease) | | | | | | | ([facility]) | | | | | | + [...] +---------+ + + | tiotropium | Inhale contents of | 30 | 0 | 08/25/19 | | | (SPIRIVA HANDIHALER) | one capsule once | capsule | | 15 | 5 | | 18 mcg inhalation | daily (do not | | | | | | capsuleIndications: | swallow capsules) | | | | | | COPD (chronic | | | | | | | obstructive | | | | | | | pulmonary disease) | | | | | | | ([facility]) | | | | | | + [...] [place] | | | | | | [address] | | | | | | | | +--------+---------+ + + + | 11/24/ | Office | Cardiology | [place], | | | 2019 | Visit | | SINDHU Erickson [address] | | | | | | [place], | | | | | | [place] [address] | | | | | | [phone] | | | | | | | | +--------+---------+ + + + documented as of this encounter Procedures + +--------+ + + + | Procedure Name | Priori | Date/Time | Associated Diagnosis | Comments | | | ty | | | | + +--------+ + + + | ED INFORMATION | Routin | 08/26/2014 | | Results for this | | EXCHANGE | e | 4:48 AM | | procedure are in the | | | | PDT | | results section. | + +--------+ + + + documented in this encounter Results ED INFORMATION EXCHANGE (08/26/2014 4:48 AM PDT) + + | Specimen | + + | | + + + + + | Narrative | Performed At | + + + | INPATIENT VISIT TRACKING (1 MO.) Visit Date | [place] [facility] | | LocationTypeDiagnoses or Chief Complaint | | | VISIT TRACKING (3 MO.) Visit Date | | | Location Type | | | Diagnoses or Chief Complaint | | | -------- ---- | | | 08/26/2014 04:46 [facility] | | | Center Emergency -Difficulty Breathing 07/10/2014 13:41 | | | Located Within [facility] Emergency 0. | | | SYNCOPAL EPISODE VISIT COUNT (1 YR.) [place]its [place] | | | Dx Location ------ --------- 2 | | | 0 [facility] 3 | | | 0 Located Within [facility] 5 | | | 0 Total Note: Visits indicate | | | total known visits. [place] Dx are the number of primary diagnoses | | | on the [facility]'s non-emergent dx list. | | | | | | --- [facility] has no Care Guidelines for this patient. [place] | | | Prescription Review PDMP Report (previous six months). Fill Date | | | Drug Description Qty. Prescriber | | | CS MED --------- | | | ---- -- | | | --- 12 Month Prescription Summary -Number of CS Rx:6 | | | -Number of CS-II Rx:2 -Total dispensed quantity:[id number] -Unique | | | Prescribers:2 -Unique Pharmacies:1 -Opioid Rx Count:4 | | | -Long Acting Opioid Rx Count:0 -Benzo Rx Count:2 | | + + + + +---------+ + + | Performing | Address | City/State[facility] | Phone Number | | Organization | | | | + +---------+ + + | [place] [facility] | | | | + +---------+ + + documented in this encounter Visit Diagnoses + + | Diagnosis | + + | COPD (chronic obstructive pulmonary disease) (HCC) - Primary Chronic airway | | obstruction, not elsewhere classified | + + documented in this encounter Administered Medications + +--------+ +-------+------+------+ | Medication Order | MAR | Action | Dose | Rate | Site | | | Action | Date | | | | + +--------+ +-------+------+------+ | albuterol-ipratropium (DUONEB) | Given | 08/27/19 | 3 mLs | | | | 2.5-0.5 mg/3 mL nebulizer | | 15 4:59 | | | | | solution 3 mL 3 mL, | | AM PDT | | | | | Nebulization, RT Once, 08/26/14 | | | | | | | at 0515, For 1 dose | | | | | | + +--------+ +-------+------+------+ +---+---+ | | | +---+---+ documented in this encounter
--- OUTSIDE RECORDS SUMMARY | ~2019-02-28 | XMS | Encounter Summary ---
Demographics + + + | Address | [address] | | | [place] [address] | + + + | Home Phone | | + + + | Preferred Language | Unknown | + + + | Marital Status | Single | + + + | Baptism Affiliation | 1041 | + + + | Race | Unknown | + + + | Ethnic Group | Unknown | + + + Author + + + | Author | [facility] | | | and [place] | + + + | Organization | [facility] | | | and [...] Team Providers + +------+ + | Care Outdoor Advertising Leasing Agent Name | Role | Phone | + +------+ + | Ozzy Delcid MD | PCP | | + +------+ + Encounter Details +--------+ + + + + | Date | Type | Department | Care Team | Description | +--------+ + + + + | 07/03/ | Hospital | [facility] | [place] | | | 2011 | Encounter | MED CTR EMERGENCY | MD JAMARI [address] | | | | | CENTER [address] | [place] | | | | | [place], [place] | [place] [address] | | | | | [address] | [phone] | | | | | [phone] | | | +--------+ + + + [...] [place], | | | | | | [place] [address] | | | | | | [phone] | | | | | | | | +--------+---------+ + + + documented as of this encounter Procedures + +--------+ + + + | Procedure Name | Priori | Date/Time | Associated Diagnosis | Comments | | | ty | | | | + +--------+ + + + | XR CHEST PA OR AP | | 07/04/2011 | | Results for this | | | | 9:43 PM | | procedure are in the | | | | PDT | | results section. | + +--------+ + + + documented in this encounter Results XR Chest PA or AP (07/04/2011 9:43 PM PDT) + + | Specimen | + + | | + + + + + | Narrative | Performed At | + + + | [facility] Diagnostic Imaging Department | [facility] | | [address] [facility] | [facility] | | PORTABLE CHEST CLINICAL | DIAG IMG | | HISTORY: SHORTNESS OF BREATH. COMPARISON: 05/01/2010. | | | FINDINGS: Heart size is normal. Hilar regions and pulmonary | | | vasculature are normal. No areas of ab normal lung density are | | | seen. No bony or upper abdominal abnormalities are noted. | | | IMPRESSION: 1. NEGATIVE STUDY OF THE CHEST. Dictated | | | Date/Time: 07/05/2011 10:29 Transcribed Date/Time: 07/05/2011 | | | 10:46 Print Press Operator: <Electronically Signed by Cesar Singh | | | MD Mikal> 07/05/11 1343 | | + + + + + | Procedure Note | + + | Reed, Rad Conversion - 04/02/2013 5:18 PM [facility] | | Diagnostic Imaging Department [address] [facility] | | PORTABLE CHEST CLINICAL HISTORY: SHORTNESS OF BREATH. | | COMPARISON: 05/01/2010. FINDINGS: Heart size is normal. Hilar regions and pulmonary | | vasculature are normal. No areas of abnormal lung density are seen. No bony or upper | | abdominal abnormalities are noted. IMPRESSION: 1. NEGATIVE STUDY OF THE CHEST. | | Dictated Date/Time: 07/05/2011 10:29Transcribed Date/Time: 07/05/2011 | | 10:46Transcriptionist: <Electronically Signed by Cesar Ren MD> 07/05/11 | | 1343 | | | |COMPARISON: 05/01/2010. | | | |FINDINGS: Heart size is normal. Hilar regions and pulmonary vasculature are normal. No a reas of ab | |normal lung density are seen. No bony or upper abdominal abnormalities are noted. | | | |IMPRESSION: | |1. NEGATIVE STUDY OF THE CHEST. | | | |Dictated Date/Time: 07/05/2011 10:29 | |Transcribed Date/Time: 07/05/2011 10:46 | |Print Press Operator: | |<Electronically Signed by Cesar Ren MD> 07/05/11 1343 | + + + +---------+ + + | Performing | Address | City/State/Zipcode | Phone Number | | Organization | | | | + +---------+ + + | [place] | | | | | [facility] | | | | + +---------+ + + documented in this encounter Visit Diagnoses Not on filedocumented in this encounter"
--- OUTSIDE RECORDS SUMMARY | ~2019-02-28 | XMS | Encounter Summary ---
Demographics + + + | Address | [address] | | | [place] [address] | + + + | Home Phone | | + + + | Preferred Language | Unknown | + + + | Marital Status | Single | + + + | Holiness Affiliation | 1041 | + + + | Race | Unknown | + + + | Ethnic Group | Unknown | + + + Author + + + | Author | [facility] | | | and [place] | + + + | Organization | [facility] | | | [...] Team Providers + +------+ + | Care Gold And Silver Assayer Name | Role | Phone | + +------+ + | Juan Cherry DO | PCP | | + +------+ + Encounter Details +--------+ + + + + | Date | Type | Department | Care Team | Description | +--------+ + + + + | 03/22/ | Hospital | [facility] | Guru Cárdenas, | | | 2013 | Encounter | MED CTR EMERGENCY | MD [address] | | | | | CENTER [address] | [facility] [place] | | | | | [place], [place] | [place] [address] | | | | | [address] | [phone] | | | | | [phone] | | | +--------+ + + + [...] | | | | | order to [facility]. | | | | | + [...] | | | | | | | [facility]. | | | | | [...] | | | | | | [place] [address] | | | | | | [phone] | | | | | | | | +--------+---------+ + + + documented as of this encounter Procedures + +--------+ + + + | Procedure Name | Priori | Date/Time | Associated Diagnosis | Comments | | | ty | | | | + +--------+ + + + | XR CHEST AP PORTABLE | Routin | 03/22/2013 | | Results for this | | | e | 8:11 AM | | procedure are in the | | | | PST | | results section. | + +--------+ + + + | CBC WITH | Routin | 03/22/2013 | | Results for this | | DIFFERENTIAL | e | 2:05 AM | | procedure are in the | | | | PST | | results section. | + +--------+ + + + | BASIC METABOLIC | Routin | 03/22/2013 | | Results for this | | PANEL | e | 2:05 AM | | procedure are in the | | | | PST | | results section. | + +--------+ + + + documented in this encounter Results XR Chest AP Portable (03/22/2013 8:11 AM PST) + + | Specimen | + + | | + + + + + | Narrative | Performed At | + + + | [facility] | [place] | | Department [facility] | [facility] | | [ rep ct [address]] [ rep ct [facility] | | st zip] Signed | - IMAGING | | | | | Patient Name: JADYN SCHMITZ | | | Physician: SANG : 1965 Age: 48 Sex: F Unit | | | #: [id number] Exam Date: 03/22/13 Location: | | | ER Report #: [id number] Page: | | | %(RAD)RES..mtdd.print.filter("pg") of %(RAD) | | | RES..mtdd.print.filter("tpg") | | | | | | Accession Number: [id number] | | | PORTABLE CHEST CLINICAL HISTORY: SHORTNESS OF BREATH. | | | COMPARISON: December 22, 2012 FINDINGS: | | | Heart size is normal. Aorta and pulmonary vasculature are normal. | | | There are no areas of abnormal lung density. Hyperinflation is | | | again noted. No bony or upper abdominal abnormalities are present. | | | IMPRESSION: 1. STABLE HYPERINFLATION. NO ACUTE | | | CARDIOPULMONARY ABNORMALITY. Dictated Date/Time: | | | 03/22/2013 08:11 Transcribed Date/Time: 03/22/2013 08:50 | | | Breast Buffer: <<Signature on File>> | | | | | | Cesar Ren MD03/22/13 1800 <Electronically signed by | | | Cesar Ren MD> Cesar Ren MD 03/22/13 | | | 0811 Breast Buffer: Dinnr Ashlbbmbnlxhp71/27/14 0850 | | | | | + + + + + + + + | Performing | Address | City/State/Zipcode | Phone Number | | Organization | | | | + + + + + | [facility] | [address] | [place] | [phone] | | [facility] | | [address] | | | - IMAGING | | | | + + + + + CBC with Differential (03/22/2013 2:05 AM PST) + + + + + + | Component | Value | Ref Range | Performed | Pathologist | | | | | At | Signature | + + + + + + | MANUAL | NO | | [facility] | | | DI[facility]ENT[facility] | | | [facility] | | | L ? | | | MEDICAL | | | | | | CENTER - | | | | | | LABORATORY | | + + + + + + | WBC | 11.3 (H) | 4.0 - 11.0 K/uL | [facility] | | | | | | [facility] | | | | | | MEDICAL | | | | | | CENTER - | | | | | | LABORATORY | | + + + + + + | RBC | 4.51 | 3.70 - 5.20 | [facility] | | | | | M/uL | [facility] | | | | | | MEDICAL | | | | | | CENTER - | | | | | | LABORATORY | | + + + + + + | Hemoglobin | 13.4 | 11.5 - 16.0 | [facility] | | | | | gm/dL | [facility] | | | | | | MEDICAL | | | | | | CENTER - | | | | | | LABORATORY | | + + + + + + | Hematocrit | 39.2 | 34.0 - 47.0 % | [facility] | | | | | | [facility] | | | | | | MEDICAL | | | | | | CENTER - | | | | | | LABORATORY | | + + + + + + | MCV | 87.1 | 83.0 - 101.0 fL | [facility] | | | | | | [facility] | | | | | | MEDICAL | | | | | | CENTER - | | | | | | LABORATORY | | + + + + + + | MCH | 29.8 | 28.0 - 35.0 pg | [facility] | | | | | | [facility] | | | | | | MEDICAL | | | | | | CENTER - | | | | | | LABORATORY | | + + + + + + | MCHC | 34.3 | 32.0 - 36.0 | [facility] | | | | | g/dL | [facility] | | | | | | MEDICAL | | | | | | CENTER - | | | | | | LABORATORY | | + + + + + + | RDW-CV | 13.3 | <15.0 % | [facility] | | | | | | [facility] | | | | | | MEDICAL | | | | | | CENTER - | | | | | | LABORATORY | | + + + + + + | Platelet | 278 | 140 - 440 K/uL | [facility] | | | Count | | | [facility] | | | | | | MEDICAL | | | | | | CENTER - | | | | | | LABORATORY | | + + + + + + | % | 59.1 | 45 - 75 % | [facility] | | | Neutrophils | | | [facility] | | | | | | MEDICAL | | | | | | CENTER - | | | | | | LABORATORY | | + + + + + + | % | 28.7 | 20 - 45 % | [facility] | | | Lymphocytes | | | [facility] | | | | | | MEDICAL | | | | | | CENTER - | | | | | | LABORATORY | | + + + + + + | % Monocytes | 7.6 | 4 - 12 % | [facility] | | | | | | [facility] | | | | | | MEDICAL | | | | | | CENTER - | | | | | | LABORATORY | | + + + + + + | % | 4.0 | 0 - 5 % | [facility] | | | Eosinophils | | | [facility] | | | | | | MEDICAL | | | | | | CENTER - | | | | | | LABORATORY | | + + + + + + | % Basophils | 0.6 | 0 - 1 % | [facility] | | | | | | [facility] | | | | | | MEDICAL | | | | | | CENTER - | | | | | | LABORATORY | | + + + + + + | Absolute | 6.7 (H) | 1.5 - 6.6 K/uL | [facility] | | | Neutrophils | | | [facility] | | | | | | MEDICAL | | | | | | CENTER - | | | | | | LABORATORY | | + + + + + + | Absolute | 3.3 (H) | 0.6 - 3.2 K/uL | [facility] | | | Lymphocytes | | | [facility] | | | | | | MEDICAL | | | | | | CENTER - | | | | | | LABORATORY | | + + + + + + | Absolute | 0.9 | 0.0 - 1.0 K/uL | [facility] | | | Monocytes | | | [facility] | | | | | | MEDICAL | | | | | | CENTER - | | | | | | LABORATORY | | + + + + + + | Absolute | 0.4 | 0.0 - 0.4 K/uL | [facility] | | | Eosinophils | | | [facility] | | | | | | MEDICAL | | | | | | CENTER - | | | | | | LABORATORY | | + + + + + + | Absolute | 0.1 | 0.0 - 0.1 K/uL | [facility] | | | Basophils | | | [facility] | | [...] + + | [facility] | [address] | [place] | [phone] | | [facility] | | [address] | | | - LABORATORY | | | | + + + + + | [facility] | [address] | [place] | | | [facility] | | [address] | | | - LABORATORY | | | | + + + + + Basic Metabolic Panel (03/22/2013 2:05 AM PST) + + + + + + | Component | Value | Ref Range | Performed | Pathologist | | | | | At | Signature | + + + + + + | Glucose | 127 (H) | 70 - 109 mg/dL | [facility] | | | | | | [facility] | | | | | | MEDICAL | | | | | | CENTER - | | | | | | LABORATORY | | + + + + + + | Calcium | 9.0 | 8.3 - 10.5 | [facility] | | | | | mg/dL | [facility] | | | | | | MEDICAL | | | | | | CENTER - | | | | | | LABORATORY | | + + + + + + | BUN | 15 | 7 - 18 mg/dL | [facility] | | | | | | [facility] | | | | | | MEDICAL | | | | | | CENTER - | | | | | | LABORATORY | | + + + + + + | Creatinine | 0.64 | 0.60 - 1.30 | [facility] | | | | | mg/dL | [facility] | | | | | | MEDICAL | | | | | | CENTER - | | | | | | LABORATORY | | + + + + + + | Estimated | >60Comment: For | >60 mL/min/A | [facility] | | | GFR | -Americans, | | [facility] | | | | please multiply the | | MEDICAL | | | | result by 1.210 | | CENTER - | | | | This is an estimated | | LABORATORY | | | | GFR and is based on a | | | | | | standard adult | | | | | | body mass (A=1.73m2) and | | | | | | serum creatinine | | | | + + + + + + | BUN/Creatin | 23.4 (H) | 12 - 20 | [facility] | | | ine Ratio | | | [facility] | | | | | | MEDICAL | | | | | | CENTER - | | | | | | LABORATORY | | + + + + + + | Na | 137 | 136 - 149 mEq/L | [facility] | | | | | | [facility] | | | | | | MEDICAL | | | | | | CENTER - | | | | | | LABORATORY | | + + + + + + | K | 3.3 (L) | 3.5 - 5.1 mEq/l | [facility] | | | | | | [facility] | | | | | | MEDICAL | | | | | | CENTER - | | | | | | LABORATORY | | + + + + + + | Cl | 105 | 98 - 109 mEq/l | [facility] | | | | | | [facility] | | | | | | MEDICAL | | | | | | CENTER - | | | | | | LABORATORY | | + + + + + + | CO2 | 26 | 24 - 31 mEq/L | [facility] | | | | | | [facility] | | | | | | MEDICAL | | | | | | CENTER - | | | | | | LABORATORY | | + + + + + + | Anion Gap | 9.3 | 6.0 - 17.0 | [facility] | | | | | [...] + | [facility] | [address] | [place] | [phone] | | [facility] | | [address] | | | - LABORATORY | | | | + + + + + | [facility] | [address] | [place] | | | [facility] | | [address] | | | - LABORATORY | | | | + + + + + documented in this encounter Visit Diagnoses Not on filedocumented in this encounter
--- OUTSIDE RECORDS SUMMARY | ~2019-02-28 | XMS | Encounter Summary ---
Demographics + + + | Address | [address] | | | [place] [address] | + + + | Home Phone | | + + + | Preferred Language | Unknown | + + + | Marital Status | Single | + + + | Denominational Affiliation | 1041 | + + + | Race | Unknown | + + + | Ethnic Group | Unknown | + + + Author + + + | Author | [facility] | | | and [place] | + + + | Organization | [facility] | | | [...] Providers + +------+ + | Care Business Relations Manager Name | Role | Phone | + +------+ + | Ozzy Delcid MD | PCP | | + +------+ + Encounter Details +--------+ + + + + | Date | Type | Department | Care Team | Description | +--------+ + + + + | 10/08/ | Hospital | [facility] | [place], | | | 2011 | Encounter | MED CTR LABORATORY | Loreta Alonso MD | | | | | [address] | | | | | | [place] | | | | | | [address] | | | | | | [phone] | | | +--------+ + + + [...] [place] | | | | | | [address] | | | | | | | | +--------+---------+ + + + | 11/24/ | Office | Cardiology | [place], | | | 2019 | Visit | | SIND[facility] Erickson [address] | | | | | | [address] [place], | | | | | | [place] [address] | | | | | | [phone] | | | | | | | [...] performed on the Blake | uIU/mL | [facility] | | | | [place] [address] | | MEDICAL | | | [...] + | [facility] | [address] | [place], [place] | [phone] | | [facility] | | [address] | | | - LABORATORY | | | | + + + + + | [facility] | [address] | [place], [place] | | | [facility] | | [address] | | | - LABORATORY | | | | + + + + + documented in this encounter Visit Diagnoses Not on filedocumented in this encounter"
--- OUTSIDE RECORDS SUMMARY | ~2019-02-28 | XMS | Encounter Summary ---
Demographics + + + | Address | [address] | | | [place] [address] | + + + | Home Phone | | + + + | Preferred Language | Unknown | + + + | Marital Status | Single | + + + | Tenriism Affiliation | 1041 | + + + | Race | Unknown | + + + | Ethnic Group | Unknown | + + + Author + + + | Author | [facility] | | | and [place] | + + + | Organization | [facility] | | | [...] Team Providers + +------+ + | Care Lens Molder Name | Role | Phone | + +------+ + | Juan Cherry DO | PCP | | + +------+ + Encounter Details +--------+ + + + + | Date | Type | Department | Care Team | Description | +--------+ + + + + | 11/21/ | Anesthesia | [facility] | Kevin Worthy | | | 2015 | Event | MED CTR OR INTRA OP | G, MD [address] | | | | | [address] | [address] [place], [place] | | | | | [place], [place] | [address] | | | | | [address] | | | | | | [phone] | | | +--------+ + + + + Anesthesia Record + + + + + | Procedure Name | Responsible | Anesthesia Start | Anesthesia Stop Time | | | Anesthesiologist | Time | | + + + + + | Cystoscopy, | Kevin Worthy, | 11/22/15732 | 11/22/15825 | | Hydrodistention & | MD | | | | Bladder Biopsy (N/A | | | | | Bladder) | | | | + + + + + +----+---+ + + | Da | T | Event | Comment | | te | i | | | | | m | | | | | e | | | +----+---+ + + | 09 | 0 | | | | /2 | 7 | | | | 8/ | 1 | | | | 20 | 0 | | | | 16 | | | | +----+---+ + + | | 0 | An Checkout | Pre-use anesthesia machine/equipment checkout. | | | 7 | | | | | 2 | | | | | 8 | | | +----+---+ + + | | 0 | An Start | Versed 2 mg IV in SDS 4 then to OR 3 with sedated patient. | | | 7 | | Reassessment prior to anesthesia induction/procedure. | | | 3 | | | | | 3 | | | +----+---+ + + | | 0 | an everardo now | In room 3 with sedated patient from SDS 4 | | | 7 | | | | | 3 | | | | | 6 | | | +----+---+ + + | | 0 | Antibiotic | | | | 7 | Given | | | | 3 | | | | | 7 | | | +----+---+ + + | | 0 | Preoxygenat | | | | 7 | ed | | | | 4 | | | | | 1 | | | +----+---+ + + | | 0 | An | | | | 7 | Induction | | | | 4 | | | | | 5 | | | +----+---+ + + | | 0 | An | | | | 7 | Intubation | | | | 4 | | | | | 6 | | | +----+---+ + + | | 0 | AN Bite | | | | 7 | Block | | | | 4 | | | | | 7 | | | +----+---+ + + | | 0 | State Line | | | | 7 | 43-degrees | | | | 5 | | | | | 1 | | | +----+---+ + + | | 0 | First | | | | 7 | Inc/Proc St | | | | 5 | | | | | 7 | | | +----+---+ + + | | 0 | An Stop | Patient handed off to recovery nurse. | | | 2 | | | | | 6 | | | +----+---+ + + +------+ | Meds | +------+ + +---------+ | Name | Total | + +---------+ | midazolam | 2 mg | + +---------+ | fentaNYL injection (2 mL) | 100 mcg | + +---------+ | propofol | 150 mg | + +---------+ | lidocaine 2% (PF) | 60 mg | + +---------+ | ondansetron | 4 mg | + +---------+ | Phenylephrine 100mcg/mL SYRINGE | 100 mg | + +---------+ | ciprofloxacin in dextrose (CIPRO) | 400 mg | | IVPB 400 mg | | + +---------+ | ePHEDrine | 25 mg | + +---------+ | hydrocortisone | 100 mg | + +---------+ | lactated ringers (LR) infusion | 600 mL | + +---------+ + + | Name | + + | N2O Flow Rate (L/Min) | + + | O2 Flow Rate (L/Min) | + + | Insp O2 | + + | Exp SEV | + + | Air Flow Rate (L/Min) | + + + + | No blood administrations on file. | + + +--------+ + + + | Type | Details | Placement | Removal | +--------+ + + + | Periph | 11/22/15; 0710; Right; Forearm; | 11/22/15 0710 by | 11/22/15 1025 by | | eral | [id number] catheter system; | Kelsie Gandhi RN | Juan Antonio Reyes RN | | IV | 18 gauge, 1 1/4 in length; 0; | | | | | tolerated well; no longer | | | | | indicated; short term use; | | | | | 11/22/15; 1025 | | | +--------+ + + + | Airway | Placement Date: 11/22/15; | 11/22/15 07 by | 11/22/15 08 by | | | Placement Time: 745; Mask | Kevin Worthy, | Shanda Rodriguez RN | | | Ventilation: EZ; Airway Type: | MD | | | | laryngeal mask; Size: 4; Tube | | | | | Reference Point: secure and | | | | | patent; Placement Check: | | | | | bilateral chest rise, breath | | | | | sounds equal bilaterally, exhaled | | | | | CO2 detection device; Removal: | | | | | per protocol, removed by RN; | | | | | Removal Date: 11/22/15; Removal | | | | | Time: 836 | | | +--------+ + + + | Read | 11/22/15; 0810; perineum; removed | 11/22/15 0810 by | 03/24/16 0000 by | | only - | in past; 03/24/16 | Crystal Carvajal RN | Irasema Anderson RN | | | | | | | Incisi | | | | | on | | | | +--------+ + + + documented in this encounter Social History + + + +--------+ + [...] [place] | | | | | | [address] | | | | | | | | +--------+---------+ + + + | 11/24/ | Office | Cardiology | [place], | | | 2020 | Visit | | SINDHU Erickson [address] | | | | | | [place], | | | | | | [place] [address] | | | | | | [phone] | | | | | | | | +--------+---------+ + + + documented as of this encounter Visit Diagnoses Not on filedocumented in this encounter Administered Medications + +--------+ +--------+------+------+ | Medication Order | MAR | Action | Dose | Rate | Site | | | Action | Date | | | | + +--------+ +--------+------+------+ | ciprofloxacin in dextrose | Given | 11/22/19 | 400 mg | | | | (CIPRO) IVPB 400 mg 400 mg, | | 16 7:37 | | | | | Intravenous, Administer over 1 | | AM PDT | | | | | Hours, Prior to Incision, | | | | | | | Starting 11/22/15 at 0618, For | | | | | | | 1 dose, Administer in OR, within | | | | | | | 2 hours of surgical incision. | | | | | | | Adjust administration schedule to | | | | | | | match OR schedule., Pre-op, | | | | | | | Indications: Surgical Prophylaxis | | | | | | + +--------+ +--------+------+------+ +---+---+ | | | +---+---+ + +-------+ +---------+---+---+ | ePHEDrine 50 mg/mL injection | Given | 11/22/19 | 12.5 mg | | | | PRN, Starting 11/22/15 at | | 16 7:51 | | | | | 0749, Anesthesia Intra-op | | AM PDT | | | | + +-------+ +---------+---+---+ +-------+ +---------+---+---+ | Given | 11/22/19 | 12.5 mg | | | | | 16 7:49 | | | | | | AM PDT | | | | +-------+ +---------+---+---+ +---+---+ | | | +---+---+ + +-------+ +--------+---+---+ | fentaNYL (PF) injection PRN, | Given | 11/22/19 | 50 mcg | | | | Pain, Starting 11/22/15 at | | 16 8:11 | | | | | 0739, Anesthesia Intra-op | | AM PDT | | | | + +-------+ +--------+---+---+ +-------+ +--------+---+---+ | Given | 11/22/19 | 50 mcg | | | | | 16 7:39 | | | | | | AM PDT | | | | +-------+ +--------+---+---+ +---+---+ | | | +---+---+ + +-------+ +--------+---+---+ | hydrocortisone (PF) | Given | 11/22/19 | 100 mg | | | | (solu-CORTEF) injection | | 16 7:44 | | | | | Intravenous, PRN, Starting Fri | | AM PDT | | | | | 11/22/15 at 0744, Anesthesia | | | | | | | Intra-op | | | | | | + +-------+ +--------+---+---+ +---+---+ | | | +---+---+ + +-------+ +-------+---+---+ | lidocaine (PF) 2% injection | Given | 11/22/19 | 60 mg | | | | PRN, Starting Fri11/22/15 at | | 16 7:45 | | | | | 0745, Anesthesia Intra-op | | AM PDT | | | | + +-------+ +-------+---+---+ +---+---+ | | | +---+---+ + +-------+ +------+---+---+ | midazolam (VERSED) 1 mg/mL | Given | 11/22/19 | 2 mg | | | | injection Intravenous, PRN, | | 16 7:33 | | | | | Anxiety, Starting Fri11/22/15 at | | AM PDT | | | | | 0733, Anesthesia Intra-op | | | | | | + +-------+ +------+---+---+ +---+---+ | | | +---+---+ + +-------+ +------+---+---+ | ondansetron (ZOFRAN) injection | Given | 11/22/19 | 4 mg | | | | PRN, Nausea, Vomiting, Starting | | 16 7:45 | | | | | 11/22/15 at 0745, Anesthesia | | AM PDT | | | | | Intra-op | | | | | | + +-------+ +------+---+---+ +---+---+ | | | +---+---+ + +-------+ +--------+---+---+ | phenylephrine (CUCA-SYNEPHRINE) | Given | 11/22/19 | 100 mg | | | | 100 mcg/mL injection | | 16 7:54 | | | | | Intravenous, PRN, Starting Wed | | AM PDT | | | | | 11/22/15 at 0754, Anesthesia | | | | | | | Intra-op | | | | | | + +-------+ +--------+---+---+ +---+---+ | | | +---+---+ + +-------+ +--------+---+---+ | propofol (DIPRIVAN) injection | Given | 11/22/19 | 150 mg | | | | Intravenous, PRN, Starting Wed | | 16 7:45 | | | | | 11/22/15 at 0745, Anesthesia | | AM PDT | | | | | Intra-op | | | | | | + +-------+ +--------+---+---+ +---+---+ | | | +---+---+ documented in this encounter"
--- OUTSIDE RECORDS SUMMARY | ~2019-02-28 | XMS | Encounter Summary ---
Demographics + + + | Address | [address] | | | [place] [address] | + + + | Home Phone | | + + + | Preferred Language | Unknown | + + + | Marital Status | Single | + + + | Hindu Affiliation | 1041 | + + + | Race | Unknown | + + + | Ethnic Group | Unknown | + + + Author + + + | Author | [facility] | | | and [place] | + + + | Organization | [facility] | | | and [place] | + [...] Team Providers + +------+ + | Care Soup Mixer Name | Role | Phone | + +------+ + | Juan Cherry DO | PCP | | + +------+ + Encounter Details +--------+ + + + + | Date | Type | Department | Care Team | Description | +--------+ + + + + | 05/03/ | Hospital | [facility] | Ozzie Hayes | | | 2012 | Encounter | MED CTR EMERGENCY | MD Ran [address] | | | | | CENTER [address] | [address] [facility] | | | | | [place], [place] | [place] [address] | | | | | [address] | [phone] | | | | | [phone] | | | +--------+ + + + [...] + + | albuterol 2.5 mg/3 | Use in nebulizer | | 0 | 11/14/19 | | | mL nebulizer | every 4 hours as | | | 12 | 3 | | solution | needed for shortness | | | | | | | of breath | | | | | + + + +---------+ + + | ALBUTEROL SULFATE | NEBU 1 inhalation | | 0 | 11/07/19 | | | IN | every 4-6 hours as | | | 12 | 3 | | | needed | | | | | + + + +---------+ + + | | 2 puffs inhaled | | 0 | 11/14/19 | | | albuterol-ipratropiu | every 4 hours as | | | 12 | 3 | | m (COMBIVENT) 103-18 | needed for shortness | | | | | | mcg/puff inhaler | of breath | | | | | + + + +---------+ + + | Cholecalciferol | Take by mouth | | 0 | | | | (VITAMIN D3) 2000 | Daily. | | | | 4 | | UNITS CAPS | | | | | | + [...] + + + +---------+ + + | ipratropium | use in nebulizer | | 0 | 11/14/19 | | | (ATROVENT) 500 | every 4 hours as | | | 12 | 3 | | mcg/2.5 mL nebulizer | needed for shortness | | | | | | solution | of breath | | | | | + + + +---------+ + + | levothyroxine | Take 50 mcg by mouth | | 0 | 11/07/19 | | | (LEVOXYL) 112 mcg | Daily. | | | 12 | 4 | | tablet | | [...] + + + +---------+ + + | UNCODED | CPAP 11-14 cm H2O | 1 each | 0 | 04/28/19 | | | MEDICATIONIndication | | | | 13 | 3 | | s: Obstructive sleep | | | | | | | apnea (adult) | | | | | | | (pediatric) | | | | | | + [...] [place] | | | | | | [id number] | | | | | | | | +--------+---------+ + + + | 11/24/ | Office | Cardiology | [place], | | | 2019 | Visit | | [address] | | | | | | [place], | | | | | | [place] [address] | | | | | | [phone] | | | | | | | | +--------+---------+ + + + documented as of this encounter Visit Diagnoses Not on filedocumented in this encounter"
--- OUTSIDE RECORDS SUMMARY | ~2019-02-28 | XMS | Encounter Summary ---
Demographics + + + | Address | [address] | | | [place] [address] | + + + | Home Phone | | + + + | Preferred Language | Unknown | + + + | Marital Status | Single | + + + | Sikh Affiliation | 1041 | + + + [...] Team Providers + +------+ + | Care Physician Office Nurse Name | Role | Phone | + +------+ + | Juan Cherry DO | PCP | | + +------+ + Reason for Visit +---------+ + | Reason | Comments | +---------+ + | Dysuria | | +---------+ + Encounter Details +--------+ + + + + | Date | Type | Department | Care Team | Description | +--------+ + + + + | 06/27/ | Clinical | [facility] | Andriy Weber | Dysuria (Primary Dx) | | 2017 | Support | [address] | MD [address] | | | | | [place] | [address] [facility] | | | | | [address] | [place] [address] | | | | | [phone] | [phone] | | | | | | | [...] as of this encounter Progress Notes Nancy Dalal, MARINE - 06/27/2017 1:15 PM PDTUA dip was negative today. Pt. Was called and n otified. She will call if her symptoms worsen. At this time her pain is getting better and s he too Oxybutynin and Tylenol. It does hurt in her bladder to urinate. No fever, chills or b urning with urination. d ocumented in this encounter Plan of Treatment +--------+---------+ + + + | Date | Type | Specialty | Care Team | Description | +--------+---------+ + + + | 03/31/ | Office | Pulmonology | Mukul Clark MD | | | 2019 | Visit | | [address] | | | | | | [place] | | | | | | [address] | | | | | | | | +--------+---------+ + + + | 11/24/ | Office | Cardiology | [place], | | | 2019 | Visit | | SINDHU Erickson [address] | | | | | | [place], | | | | | | [place] [address] | | | | | | [phone] | | | | | | | | +--------+---------+ + + + documented as of this encounter Procedures + +--------+ + + + | Procedure Name | Priori | Date/Time | Associated Diagnosis | Comments | | | ty | | | | + +--------+ + + + | POCT URINALYSIS, | Routin | 06/27/2017 | Dysuria | Results for this | | AUTO WITH CONF | e | 1:54 PM | | procedure are in the | | | | PDT | | results section. | + +--------+ + + + documented in this encounter Results POCT Urinalysis Dipstick Automated (06/27/2017 1:54 PM PDT) + + + + + [...] + + + + | Specific | 1.015 | 1.001 - 1.030 | | | | [place], | | | | | | UA, POC | | | | | + + + + + + | Blood, UA, | Negative | Negative | | | | POC | | | | | + + + + + + | pH, UA, POC | 7.5 | 5.0, 6.0, 7.0, | | | [...] | Specimen | + + | Urine | + + documented in this encounter Visit Diagnoses + + | Diagnosis | + + | Dysuria - Primary | + + documented in this encounter"
--- OUTSIDE RECORDS SUMMARY | ~2019-02-28 | XMS | Encounter Summary ---
Demographics + + + | Address | [address] | | | [place] [address] | + + + | Home Phone | | + + + | Preferred Language | Unknown | + + + | Marital Status | Single | + + + | Protestant Affiliation | 1041 | + + + | Race | Unknown | + + + | Ethnic Group | Unknown | + + + Author + + + | Author | [facility] | | | and [place] | + + + | Organization | [facility] | | | [...] Team Providers + +------+ + | Care Bridge Teacher Name | Role | Phone | + +------+ + PCP | Unavailable | + +------+ + Encounter Details +--------+ + + + + | Date | Type | Department | Care Team | Description | +--------+ + + + + | 10/27/ | [facility] | [place] | | | | 2008 - | Encounter | MED CTR OP REHAB | | | | | | [address] [place] | | | | 11/23/ | | [place] [address] | | | | 2008 | | [phone] | | | +--------+ + + + [...] [place] | | | | | | [address] | | | | | | | | +--------+---------+ + + + | 11/24/ | Office | Cardiology | [place], | | | 2020 | Visit | | SINDHU Erickson [address] | | | | | | [place], | | | | | | [place] [address] | | | | | | [phone] | | | | | | | | +--------+---------+ + + + documented as of this encounter Visit Diagnoses Not on filedocumented in this encounter"
--- OUTSIDE RECORDS SUMMARY | ~2019-02-28 | XMS | Encounter Summary ---
Demographics + + + | Address | [address] | | | [place] [address] | + + + | Home Phone [...] + + + | Author | [facility] | | | and [place] | + + + | Organization | [facility] | | | [...] Team Providers + +------+ + | Care Microsoft Exchange Administrator Name | Role | Phone | + [...] + + + + | 02/09/ | Telephone | [facility] | Jaime Kevin, | Other | | 2013 | | PULMONARY [address] | MD [address] | | | | | [place], | [place], [place] | | | | | [place] [address] | [address] | | | | | [phone] | | | +--------+ + + + [...] [place], | | | | | | [place] [address] | | | | | | [phone] | | | | | | | | +--------+---------+ + + + documented as of this encounter Visit Diagnoses Not on filedocumented in this encounter"
--- OUTSIDE RECORDS SUMMARY | ~2019-02-28 | XMS | Encounter Summary ---
Demographics + + + | Address | [address] | | | [place] [address] | + + + | Home Phone | | + + + | Preferred Language | Unknown | + + + | Marital Status | Single | + + + | Cheondoism Affiliation | 1041 | + + + [...] Team Providers + +------+ + | Care Bulb Assembler Name | Role | Phone | + [...] Description | +--------+--------+ + + + | 03/28/ | Refill | [facility] | Andriy Weber | Medication Refill | | 2017 | | [address] | [address] | | | | | [place] | THOM [facility] | | | | | [address] | [place] [address] | | | | | [phone] | [phone] | | | | | | | [...] [place] | | | | | | [address] | | | | | | | | +--------+---------+ + + + | 11/24/ | Office | Cardiology | [place], | | | 2019 | Visit | | SINDHU Erickson [address] | | | | | | [place], | | | | | | [place] [address] | | | | | | [phone] | | | | | | | | +--------+---------+ + + + documented as of this encounter Visit Diagnoses Not on filedocumented in this encounter"
--- OUTSIDE RECORDS SUMMARY | ~2019-02-28 | XMS | Encounter Summary ---
Demographics + + + | Address | [address] | | | [place] [address] | + + + | Home Phone [...] + + | Author | [facility] | | | and [place] | + + + | Organization | [facility] | | | [...] Team Providers + +------+ + | Care Care Transport Nurse Name | Role | Phone | + +------+ + | Juan Cherry DO | PCP | | + +------+ + Reason for Visit + + + | Reason | Comments | + + + | Re-Assessment/ | | | Significant Change | | | Assessment | | + + + Evaluate & Treat (Routine) +--------+ + + + + + | Status | Reason | Specialty | Diagnoses / | Referred By | Referred To | | | | | Procedures | Contact | Contact | +--------+ + + + + + | Closed | Specialty | Rehabilitatio | Diagnoses | Rodriguez, | [facility] | | | Services | n | Concussion | Aaron Kim MD | [place] [address] | | | Required | | with brief | [address] | [place] | | | | | loss of | [address] | [place], [place] | | | | | consciousnes | [place], | [address] | | | | | s Word | [place] [address] | Phone: | | | | | finding | Phone: | [phone] | | | | | difficulty | [phone] | Fax: | | | | | [phone] | Fax: | [phone] | | | | | (ICD-10-CM) | [phone] | | | | | | - [...] | | | | | | | Speech eval | | | +--------+ + + + + + Encounter Details +--------+ + + + + | Date | Type | Department | Care Team | Description | +--------+ + + + + | 08/14/ | Hospital | [facility] | Aaron Rodriguez, | Concussion with | | 2017 | Encounter | MED CTR SPEECH | MD [address] | brief (less than one | | | | THERAPY [address] | [place], [place] | hour) loss of | | | | [place], | [address] | consciousness | | | | [place] [address] | | (Primary Dx); | | | | [phone] | Kathi Soto, | Impaired memory; | | | | | Speech Pathologist | Word finding | | | | | | difficulty | +--------+ + + + + Social [...] + + + +---------+ + + | metFORMIN | Take 500 mg by mouth | | 3 | 11/02/19 | | | (GLUCOPHAGE) 500 mg | 2 times daily (with | | | 16 | | | tablet | breakfast & | | | | | | | dinner). | | | | | + + [...] provide | 1 each | 0 | 11/20/20 | | | Therapy Supplies | patient [...] | | | | | order to [facility]. | | | | | [...] | | | | send order to [facility] | | | | | | | [facility]. | | | | | | | This is not a new | | | | | | | order, just a change | | | | | | | in settings. | | | | | + + + +---------+ + + | roflumilast | Take 1 tablet by | 30 | 3 | 09/14/19 | | | (DALIRESP) 500 mcg | mouth Daily. | tablet | | 15 | | | tablet | | | | | | + + + +---------+ + + | traMADol (ULTRAM) | Take 50 mg by mouth | | 0 | 03/29/19 | | | 50 mg tablet | 4 times daily. | | | 17 | | + + + +---------+ + + | ziprasidone | Take 80 mg by mouth | | 0 | 11/07/19 | | | (GEODON) 80 MG | 2 times daily. | | | 12 | | | capsule | | | | | | + + + +---------+ + + | ADVAIR HFA 230-21 | | | 0 | 04/18/19 | | | MCG/ACT inhaler | | | | 17 | 8 | + + + +---------+ + + [...] | | | | | | | (FORM[facility]LY [facility]) | | | | | | + + + +---------+ + + | | Take 1 capsule by | | 0 | 10/13/19 | | | Yngzdflhfs-ZBBP-Tekd | mouth as needed. | | | 16 | 7 | | -Cod [id number] MG | | | | | | | CAPS | | | | | | [...] + + + +---------+ + + | hydrOXYzine | Take 1 tablet by | 30 | 5 | 07/25/19 | | | hydrochloride | mouth nightly. | tablet | | 17 | 7 | | (ATARAX) 25 mg | | | | | | | tablet [...] mg by mouth | | 0 | 12/01/19 | | | (ZOFRAN ODT) 4 mg | Every 6 hours as | | | 16 | 9 | | disintegrating | needed. | | | | | | tablet | | | | | | + + + +---------+ + + | oxybutynin | Take 1 tablet by | 60 | 2 | 03/28/19 | | | (DITROPAN) 5 mg | mouth 2 times daily | tablet | | 17 | 7 | | tablet | | | | | | + + + +---------+ + + | propranolol | Take 10 mg by mouth | | 0 | | | | (INDERAL) 10 mg | 2 times daily. She | | | | 8 | | tablet | takes this daily | | | | | + + + +---------+ + + | triamcinolone | | | 0 | 04/26/19 | | | (KENALOG) 0.5% | | | | 17 | 7 | | ointment | | | | | | + + + +---------+ + + documented as of this encounter Progress Notes Corona Christine Aide - 12/19/2016 8:54 AM PDTREMOVED FROM [employer] WORK[employer]. MAKE 3 ATTE MPTS TO OBTAIN SIGNATURE WITH NO RESPONSE FROM PHY Kathi Faria, Speech Pathologist - 08/15/2016 8:[address] [facility] SPEECH [facility]ERAPY [address] [facility] [address] Speech Therapy Progress Assessment Date: 08/14/2016 Patient Information Patient Name: Rosario Malik Date of : 1965 Age: 51 y.o. History Encounter Diagnoses Code Name Primary? S06.0X9A Concussion with brief (less than one hour) loss of consciousness Yes R41.3 Impaired memory R47.89 Word finding difficulty Date of Onset: 03/15/2016 Referring Provider: Aaron Rodriguez MD Rehab Precautions Flowsheet Row Office Visit from 05/01/[address] [facility] THERAPY PT OP Rehab Precautions Precautions None Rehab Learning Style Flowsheet Row [facility] PAINT LINE SUPERVISOR OP EVAL from 05/16/[address] [facility] SPEECH THERAPY O ffice Visit from 05/01/[address] [facility] PT OP Learning Style Patient's Optimum Learning Style observation, performance of task listening, reading, obs ervation, performance of task Subjective Rosario Malik has completed 6 for treatment of expressive/receptive langu age and cognitive deficits s/p concussion. Patient reports improvements with using memory st rategies of list making, calendars, and using text messages for recalling conversations. How ever continues to report difficulty with word finding, recalling conversations/important det ails/lists, and has increased difficulty using strategies when under stress or when particip ating in social environments outside of speech therapy. She does express that her family/com munication partners are not supportive and do not allow necessary wait time to functionally use discussed tasks for carryover. Pain Assessment: Pain Scale Used: NUMERIC Pain Rating Pre Assessment: 0 Objective: Expressive/Receptive Language: Halting and pausing during conversation, several instances o f word finding difficulties, tangential, and poor recall abilities. Cognitive aspects of Language: Severe cognitive deficits in the areas of immediate memory, visuospatial skills, and delayed memory, mild impairments with language and attention. Standardized Tests: RBANs Date:05/16/16 Areas Index Score Notes Immediate Memory 53 >3 SD below mean, Extremely low Visuospatial/Constructional 53 >3 SD below mean, Extremely low Language 85 1 SD below mean, Low avg Attention 88 1 SD below mean, Low avg Delayed Memory 40 >3 SD below mean, Extremely low Total 319 >3 SD below mean, Extremely low Percentile 0.1%ile Assessment Rosario Malik has been participating in therapy for treatment of changes in memory a nd word finding abilities s/p concussion on 03/15/16. Patient demonstrates objective improvem ents with using memory strategies of: checking back (referring to previous notes/text messag es), making associations with colors/features, repeating details. Needs continued education and training to improve independence with use of memory compensatory strategies and use of w ord finding strategies when under pressure or feeling stressed. Rosario Malik contin ues to have impairments with immediate memory, delayed memory, and visuospatial/ constructio nal abilities. She also has mild-moderate impairments in the areas of language and attention . Receptive and expressive language reveals;frequent halting and pausing during conversation , several instances of word finding difficulties and poor event recall abilities. These impa irments and diagnosis are causing functional limitations with patient s inability to parti cipate in social interactions since concussion, are causing increased frustration with memor y and word finding difficulties, contributing to increased avoidance of participating in sit uations/ increased fear anxiety requiring phone calls to insurance companies etc. Signs and symptoms are consistent with cognitive-communication impairments s/p concussion. Patient r equires continued skilled therapy services to achieve the following updated functional goals . Rehabilitation potential: Patient demonstrates good potential to achieve established goals to address the documented impairments by participating in skilled speech and language therap y services. Goals: Outcome Specific Scored Goals Patient Specific Functional Scale: PSFS 3 Patient Specific Functional Scale Goal 1: Pt will demonstrate carryover and use of word fin ding and memory strategies to support recall in 12 weeks. Patient Specific Functional Scale Goal 1 Status Comment: Goal emerging, is beginning to use previous text messages to recall details, uses a calendar, is starting to put together a me jamilah book. Frequently is having communication breakdowns when encoutering a word that she do es is unable to identify by ending conversations/ without completing thought. Increased diff iculty using in stressful situations. Patient Specific Functional Scale Goal 2: Pt will demonstrate improved immediate memory and delayed memory as evidenced by improved scores with re-assessment of the RBANS in 12 weeks. Patient Specific Functional Scale Goal 2 Status Comment: RBANs not re-administered as pt ledezma s only been seen for 6 visits due to medical complications/schedule conflicts. Re-assess nex t certification period. Patient Specific Functional Scale Goal 3: Rosario will complete immediate recall tasks x 9 0% accuracy with independent use of memory strategies in 12 weeks. Patient Specific Functional Scale Goal 3 Status: 5 Patient Specific Functional Scale Goal 3 Status Comment: Goal emerging, needs moderate cues to use memory strategies. Recalls independently x75% without cues. Patient Caregiver's Ability to Manage Condition: 2 PAINT LINE SUPERVISOR G-Codes Functional Assessment Tool Used: NOMS Functional Limitations: Memory Memory Current Status (G9168): At least 60 percent but less than 80 percent impaired, limit ed or restricted Memory Goal Status (G9169): At least 40 percent but less than 60 percent impaired, limited or restricted Plan Date of Onset: 03/15/2016 Start of Care Date: 05/16/2016 Requested # of Visits: 12 visits 1x/week for 12 Certification From: 08/16/2016 Certification To: 11/16/2016 Treatment Plan/Interventions 81471 - Cognitive [id number] - Cognitive [id number] - Speech/Hearing Treatment Patient and/or family has indicated understanding of treatment needs and actively participa kelley in the creation of this plan for care. Today's Treatment Start Time: 1035 Stop time: 1115 Duration: 40 minutes Timed Treatment Codes: 0 minutes # of Speech Visits to Date: 6 Objective: Pt was seen for ST with nasal [address] Updated POC and targeted word finding with identifying item category, describing the item and making an association, identifying location of item and make an association. Rosario was able to complete moderate level tasks with min verbal cues and increased wait time x90% accuracy. Continues to express significan t difficulty expressing wants/needs and ideas with family members or when not allotted extra wait time on a daily basis. Relies on memory strategies for delayed/ immediate recall. Next Visit: Complex story recall, complex word finding for actions/ descriptors Electronically signed by: Kathi Soto Speech Pathologist, 08/15/2016 9:34 Patient Name: Rosario Malik/: 1965/ docum ented [...] [place] | | | | | | [address] | | | | | | | | +--------+---------+ + + + | 11/24/ | Office | Cardiology | [place], | | | 2019 | Visit | | SINDHU Erickson [address] | | | | | | [place], | | | | | | [place] [address] | | | | | | [phone] | | | | | | | | +--------+---------+ + + + + + +--------+ + + | Name | Type | Priori | Associated Diagnoses | Order Schedule | | | | ty | | | + + +--------+ + + | * [facility] | Outpatient | Routin | Concussion with | Ordered: 04/11/2016 | | - AMB Referral | Referral | e | brief loss of | | | | | | consciousness Word | | | | | | finding difficulty | | + + +--------+ + + documented as of this encounter Visit Diagnoses + + | Diagnosis | + + | Concussion with brief (less than one hour) loss of consciousness - Primary Concussion | | with loss of consciousness from 31 to 59 minutes | + + | Impaired memory Memory loss | + + | Word finding difficulty Other speech disturbance | + + documented in this encounter"
--- OUTSIDE RECORDS SUMMARY | ~2019-02-28 | XMS | Encounter Summary ---
Demographics + + + | Address | [address] | | | [place] [address] | + + + | Home Phone [...] Team Providers + +------+ + | Care Astrobiologist Name | Role | Phone | + [...] | | | | | [place] | [facility] [facility] | | | | | [address] | [place] [address] | | | | | [phone] | [phone] | | | | | | | [...] [place] | | | | | | [address] | | | | | | | | +--------+---------+ + + + | 11/24/ | Office | Cardiology | [place], | | | 2019 | Visit | | SINDHU Erickson [address] | | | | | | [place], | | | | | | [place] [address] | | | | | | [phone] | | | | | | | | +--------+---------+ + + + documented as of this encounter Visit Diagnoses Not on filedocumented in this encounter"
--- OUTSIDE RECORDS SUMMARY | ~2019-02-28 | XMS | Encounter Summary ---
Demographics + + + | Address | [address] | | | [place] [address] | + + + | Home Phone [...] Team Providers + +------+ + | Care Prevention Specialist Name | Role | Phone | [...] | +--------+ + + + + | 01/13/ | Telephone | [facility] [place] | DanielAna Laura iraheta, | Other | | 2012 | | PULMONARY [address] | RN | | | | | [place], | | | | | | [place] [address] | | | | | | [phone] | | | +--------+ + + + [...] | | | | [place] | | | | | | [address] | | | | | | | | +--------+---------+ + + + | 11/24/ | Office | Cardiology | [place], | | | 2020 | Visit | | SINDHU Erickson [address] | | | | | | [place], | | | | | | [place] [address] | | | | | | [phone] | | | | | | | | +--------+---------+ + + + documented as of this encounter Visit Diagnoses + + | Diagnosis | + + | GARRY (obstructive sleep apnea) - Primary Obstructive sleep apnea (adult) (pediatric) | + + documented in this encounter"
--- OUTSIDE RECORDS SUMMARY | ~2019-02-28 | XMS | Encounter Summary ---
Demographics + + + | Address | [address] | | | [place] [address] | + + + | Home Phone | | + + + | Preferred Language | Unknown | + + + | Marital Status | Single | + + + | Voodoo Affiliation | 1041 | + + + | Race | Unknown | + + + | Ethnic Group | Unknown | + + + Author + + + | Author | [facility] | | | and [place] | + + + | Organization | [facility] | | [...] Team Providers + +------+ + | Care Restaurant Kitchen Manager Name | Role | Phone | [...] | | | | | [place] | [address] [facility] | | | | | [address] | [place] [address] | | | | | [phone] | [phone] | | | | | | | [...] [place] | | | | | | [address] | | | | | | | | +--------+---------+ + + + | 11/24/ | Office | Cardiology | [place], | | | 2019 | Visit | | SINDHU Erickson [address] | | | | | | [place], | | | | | | [place] [address] | | | | | | [phone] | | | | | | | | +--------+---------+ + + + documented as of this encounter Visit Diagnoses Not on filedocumented in this encounter"
--- OUTSIDE RECORDS SUMMARY | ~2019-02-28 | XMS | Encounter Summary ---
Demographics + + + | Address | [address] | | | [place] [address] | + + + | Home Phone | | + + + | Preferred Language | Unknown | + + + | Marital Status | Single | + + + | Judaism Affiliation | [phone] | + + + [...] Team Providers + +------+ + | Care Carpenter Assembler Name | Role | Phone | + +------+ + | Juan Cherry DO | PCP | | + +------+ + Reason for Visit + + + | Reason | Comments | + + + | Shortness of Breath | | + + + Evaluate & Treat (Routine) +--------+--------+ + + + + | Status | Reason | Specialty | Diagnoses / | Referred By | Referred To | | | | | Procedures | Contact | Contact | +--------+--------+ + + + + | Closed | | Cardiac | Diagnoses | Jaime, | [facility] | | | | Rehabilitatio | Chronic | MD Kevin | | | | | n | airway | [address] | Rehabilitatio | | | | | obstruction, | [address] | [address] | | | | | not | [place], | [place] | | | | | elsewhere | [place] [address] | [place], [place] | | | | | classified | Phone: | [address] | | | | | Procedures | [phone] | Phone: | | | | | [facility] | Fax: | [phone] | | | | | REHAB W | [phone] | Fax: | | | | | EXER | | [phone] | +--------+--------+ + + + + Encounter Details +--------+---------+ + + + | Date | Type | Department | Care Team | Description | +--------+---------+ + + + | 12/14/ | Office | [facility] | Sandoval, Kevin, | COPD (chronic | | 2013 | Visit | [facility] | MD [address] | obstructive | | | | REHABILITATION [address] | [place] | pulmonary disease) | | | | [place] | [address] | ([facility]) (Primary Dx) | | | | [place] [address] | | | | | | [phone] | Mary Nunez RN | | +--------+---------+ + + + Social [...] documented as of this encounter Progress Notes Mary Nunez RN - 12/14/2013 2:38 PM PDTAdmission: Rosario has had shortness of breath during exertion for the past two years. She is diagnos ed with COPD GS 0 per PFT, but has had frequent COPD exacerbations. 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 She uses portable oxygen at 2 liters for walking. She claims that she also wears her supplement al O2 at rest. Her order for supplemental O2 is for at night bled into CPAP and during exertion. Today her SpO2 on room air was 94% resting, 94% during exertion (recumbent) and 92% post. H er resting BP was 88/50 resting (normal for her,) and only eric to 90/48 during exertion- 90 /60 post. She drinks tea, but water "makes her gag and vomit" She agrees to try drinking some lemon w ater, which she tolerates. Better hydration may help her energy level and also make her secr etions a little thinner. She only tolerated 3.5 minutes on the recumbent stepper due to knee and hip pain. She had m ild dyspnea 2/10. She has a history of tachycardia and is wearing a Sylvester of Hyphen 8 which she will turn in sekou yucaipaow. Today, sinus rhythm 90-98 bpm without ectopy. She had a relapse in her smoking cessation three months ago, but is doing well with minimal cravings now. She denies depression on medication. She agrees to exercise 3 X week. She will be monitored for the next 5 visits and if stable she will be discharged into the free supervised maintenance program for continued support an d progression. She will begin with 3-5 minutes of aerobic exercise. If she doesn't tolerate the recumbent stepper she will try the upper cycle and will increase-as her orthopedic issues allow- up to 30 minutes. She will also begin a light weight lifting routine 12.5 to 25# 5-10 reps. Her PFT doesn't qualify her for NH, so we will monitor her as a pulmonary exercise patient. I agree with the plan of care as outlined by Mary Nunez RN. documented in this encounter Plan of Treatment [...] [place] | | | | | | [address] | | | | | | | | +--------+---------+ + + + | 11/24/ | Office | Cardiology | [place], | | | 2019 | Visit | | SINDHU Erickson [address] | | | | | | [place], | | | | | | [place] [address] | | | | | | [phone] | | | | | | | | +--------+---------+ + + + documented as of this encounter Visit Diagnoses + + | Diagnosis | + + | COPD (chronic obstructive pulmonary disease) (HCC) - Primary Chronic airway | | obstruction, not elsewhere classified | + + documented in this encounter
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
--- OUTSIDE RECORDS SUMMARY | ~2019-02-28 | XMS | Encounter Summary ---
Demographics + + + | Address | [address] | | | [place] [address] | + + + | Home Phone [...] Team Providers + +------+ + | Care Cylinder Press Operator Helper Name | Role | Phone | + +------+ + | Juan Cherry DO | PCP | | + +------+ + Encounter Details +--------+ + + + + | Date | Type | Department | Care Team | Description | +--------+ + + + + | 12/17/ | Hospital | [facility] | Shashi Segovia | Therapeutic drug | | 2013 | Encounter | [facility] | MD Miryam Need updated | monitoring | | | | [address] [place] | address | | | | | [place] | | | | | | [address] | | | | | | [phone] | | | +--------+ + + + [...] | | | | | order to [facility]. | | | | | + [...] | | | | send order to [facility] | | | | | | | [facility]. | | | | | | | [...] [place] | | | | | | [id number] | | | | | | | | +--------+---------+ + + + | 11/24/ | Office | Cardiology | [place], | | | 2019 | Visit | | SINDHU Erickson [address] | | | | | | [place], | | | | | | [place] [address] | | | | | | [phone] | | | | | | | [...] mL/min/1.73m2 | [facility] | | [facility] | [facility] - | | | | | | LABORATORY | | + +-------+ + + + + + | Specimen | + + | Blood | + + + + + + + | Performing | Address | City/State[facility] | Phone Number | | Organization | | | | + + + + + | [facility] | [address] | [place] | [phone] | | [facility] | | [address] | | | - LABORATORY | | | | + + + + + | [facility] | [address] | [place] | | | [facility] | | [address] | | | - LABORATORY | | [...] + | [facility] | [address] | [place], [place] | [phone] | | [facility] | | [address] | | | - LABORATORY | | | | + + + + + | [facility] | [address] | [place], [place] | | | [facility] | | [address] | | | - LABORATORY | | | | + + + + + documented in this encounter Visit Diagnoses + + | Diagnosis | + + | Therapeutic drug monitoring Encounter for therapeutic drug monitoring | + + documented in this encounter"
--- OUTSIDE RECORDS SUMMARY | ~2019-02-28 | XMS | Encounter Summary ---
Demographics + + + | Address | [address] | | | [place] [address] | + + + | Home Phone | | + + + | Preferred Language | Unknown | + + + | Marital Status | Single | + + + | Uatsdin Affiliation | 1041 | + + + [...] Team Providers + +------+ + | Care Standpipe Tender Name | Role | Phone | + +------+ + | Juan Cherry DO | PCP | | + +------+ + Encounter Details +--------+ + + + + | Date | Type | Department | Care Team | Description | +--------+ + + + + | 03/05/ | Hospital | [facility] | Conversion | Pain | | 2017 | Encounter | CONVERSION DE[address] | Transaction, | | | | | [address] | Provider Unknown | | | | | [place], [place] | [phone] | | | | | [address] | | | | | | [phone] | | | +--------+ + + + [...] | | | | | order to [facility]. | | | | | + [...] | | | | send order to [facility] | | | | | | | [...] | | | | | | ([facility]) | | | | | | + + + +---------+ + + | B-D 3CC LUER-UYEN | | | 0 | 09/13/19 | | | SYR 25GX1/2" 25G X | | | | 16 | 7 | | 1-2" 3 ML MISC | | | | | | + + + +---------+ + + | | Take 1 capsule by | | 0 | 10/13/19 | | | Tjxvjztjhn-UQHP-Sgjd | mouth as needed. | | | 16 | 7 | | -Cod [id number] MG | | | | | | | CAPS | | | | | | + + + +---------+ + + | cetirizine | Take 10 mg by mouth | | 0 | 05/31/19 | | | (ZYRTEC) 10 mg | Daily. | | | 16 | 7 | | tablet | | [...] | | | | | | ([facility]) | | | | | | + [...] + + + +---------+ + + | HYDROmorphone | Take 1 tablet by | 15 | 0 | 11/24/19 | | | (DILAUDID) 2 mg | mouth every 6 hours | tablet | | 16 | 7 | | tablet | as needed for Pain. | | | | | + + [...] mg by mouth | | 0 | 10/07/20 | | | (ZOFRAN ODT) 4 mg | Every 6 hours as | | | 16 | 9 | | disintegrating | needed. | | | | | | tablet | | | | | | + + + +---------+ + + | oxybutynin | Take 5 mg by mouth | | 0 | | | | (DITROPAN) 5 mg | Daily. | | | | 7 | | tablet | | | | | | + + + +---------+ + + | | Take 1 tablet by | 30 | 0 | 11/23/19 | | | oxyCODONE-acetaminop | mouth every 6 hours | tablet | | 16 | 7 | | hen (PERCOCET) | as needed for Pain. | | | | | | 10-325 mg per tablet | | | | | | + + + +---------+ + + | phenazopyridine | Take 1 tablet by | 40 | 2 | 10/04/19 | | | (PYRIDIUM) 200 mg | mouth 2 times daily. | tablet | | 16 | 7 | | tablet | | [...] 03/31/ | Office | Pulmonology | Mukul Clrak MD | | | 2019 | Visit | | [address] | | | | | | [place] | | | | | | [id number] | | | | | | | | +--------+---------+ + + + | 11/24/ | Office | Cardiology | [place], | | | 2019 | Visit | | SINDHU Erickson [address] | | | | | | [place] | | | | | | [place] [address] | | | | | | [phone] | | | | | | | | +--------+---------+ + + + documented as of this encounter Procedures + +--------+ + + + | Procedure Name | Priori | Date/Time | Associated Diagnosis | Comments | | | ty | | | | + +--------+ + + + | CT CHEST WO CONTRAST | Routin | 03/05/2016 | | Results for this | | | e | 2:13 PM | | procedure are in the | | | | PST | | results section. | + +--------+ + + + documented in this encounter Results CT Chest wo Contrast (03/05/2016 2:13 PM PST) + + | Specimen | + + | | + + + + + | Narrative | Performed At | + + + | This is a non-reportable procedure without a radiologist report and | | | is used for image storage only | | + + + + + | Procedure Note | + + | Roger Mcbride - 10/07/2018 8:01 PM PDT This is a non-reportable procedure | | without a radiologist report and isused for image storage only | + + documented in this encounter Visit Diagnoses + + | Diagnosis | + + | Pain Generalized pain | + + documented in this encounter
--- OUTSIDE RECORDS SUMMARY | ~2019-02-28 | XMS | Encounter Summary ---
Demographics + + + | Address | [address] | | | [place] [address] | + + + | Home Phone | | + + + | Preferred Language | Unknown | + + + | Marital Status | Single | + + + | Confucianist Affiliation | 1041 | + + + | Race | Unknown | + + + | Ethnic Group | Unknown | + + + Author + + + | Author | [facility] | | | and [place] | + + + | Organization | [facility] | | | and [...] Providers + +------+ + | Care Hand Fabric Cutter Name | Role | Phone | + +------+ + | Juan Cherry DO | PCP | | + +------+ + Reason for Visit + + + | Reason | Comments | + + + | Records Request | | + + + Encounter Details +--------+ + + + + | Date | Type | Department | Care Team | Description | +--------+ + + + + | 08/23/ | Telephone | [facility] | Jared Mcdonough, | Records Request | | 2013 | | CARDIOLOGY [address] | MD [address] | | | | | [place], | [place], | | | | | [place] [address] | [place] [address] | | | | | [phone] | [phone] | | | | | | | [...] [place] | | | | | | [id number] | | | | | | | | +--------+---------+ + + + | 11/24/ | Office | Cardiology | [place], | | | 2019 | Visit | | SINDHU Erickson [address] | | | | | | [place] | | | | | | [place] [address] | | | | | | [phone] | | | | | | | | +--------+---------+ + + + documented as of this encounter Visit Diagnoses Not on filedocumented in this encounter"
--- OUTSIDE RECORDS SUMMARY | ~2019-02-28 | XMS | Encounter Summary ---
Demographics + + + | Address | [address] | | | [place] [address] | + + + | Home Phone | | + + + | Preferred Language | Unknown | + + + | Marital Status | Single | + + + | Uatsdin Affiliation | 1041 | + + + | Race | Unknown | + + + | Ethnic Group | Unknown | + + + Author + + + | Author | [facility] | | | and [place] | + + + | Organization | [facility] | | [...] Providers + +------+ + | Care Construction Trades Contractor Name | Role | Phone | + +------+ + | Juan Cherry DO | PCP | | + +------+ + Reason for Visit + + + | Reason | Comments | + + + | Therapy Discharge | | + + + Evaluate & [...] | Concussion | Aaron Kim MD | [employer] [address] | | | Required | | with brief | [address] | [place] | | | | | loss of | [address] | [place], [place] | | | | | consciousnes | [place], | [address] | | | | | s Word | [place] [address] | Phone: | | | | | finding | Phone: | [phone] | | | | | difficulty | [phone] | Fax: | | | | | [id number] | Fax: | [phone] | | | | | (ICD-10-CM) | [phone] | | | | | | - [...] | +--------+ + + + + | 09/17/ | Hospital | [facility] | Aaron Rodriguez, | Word finding | | 2017 | Encounter | MED CTR SPEECH | MD [address] [facility] | difficulty (Primary | | | | THERAPY [address] | [place] | Dx); Impaired | | | | [place], | [address] | memory; Concussion | | | | [place] [address] | | with brief (less | | | | [phone] | Kathi Soto, | than one hour) loss | | | | | Speech Pathologist | of consciousness | +--------+ + + + + Social [...] | | | | | order to [facility]. | | | | | + + [...] | | | | | | | [facility]. | | | | | | [...] | | | | | | | ([facility]) | | | | | | + + + +---------+ + + | | Take 1 capsule by | | 0 | 10/13/19 | | | Tbrcanetng-ZKLR-Bfmk | mouth as needed. | | | 16 | 7 | | -Cod [id number] MG | | | | | | [...] | | | | | | | ([facility]) | | | | | | + [...] + + + +---------+ + + | pantoprazole | Take 1 tablet by | 30 | 0 | 09/10/19 | | | (PROTONIX) 40 mg | mouth every morning | tablet | | 17 | 7 | | tablet | (before breakfast). | | | | | + + + +---------+ + + | propranolol | Take 10 mg by mouth | | 0 | | | | (INDERAL) 10 mg | 2 times daily. She | | | | 8 | | tablet | takes this daily | | | | | + + + +---------+ + + | raNITIdine | Take 1 tablet by | 28 | 0 | 09/10/19 | | | (ZANTAC) 150 mg | mouth 2 times daily | tablet | | 17 | 7 | | tablet | for 14 days. | | | | | + + + +---------+ + + | triamcinolone | | | 0 | 04/26/19 | | | (KENALOG) 0.5% | | | | 17 | 7 | | ointment | | | | | | + + + +---------+ + + documented as of this encounter Progress Notes Kathi Soto, Speech Pathologist - 09/19/2016 2:57 PM PDT [facility] SPEECH THERAPY [address] [place] [address] Speech Therapy Discharge Note Date: 09/17/2016 Patient Information Patient Name: Rosario Malik Date of : 1965 Age: 51 y.o. History Encounter Diagnoses Code Name Primary? R47.89 Word finding difficulty Yes R41.3 Impaired memory S06.0X9A Concussion with brief (less than one hour) loss of consciousness Date of Onset: 03/15/2016 Referring Provider: Aaron Rodriguez MD Rehab Precautions Flowsheet Row Office Visit from 05/01/2016 in [facility] THERAPY PT OP Rehab Precautions Precautions None Rehab Learning Style Flowsheet Row [facility] FUR TANNER OP EVAL from 05/16/2016 in [facility] SPEECH THERAPY O ffice Visit from 05/01/2016 in [facility] THERAPY PT OP Learning Style Patient's Optimum Learning Style observation, performance of task listening, reading, obs ervation, performance of task Subjective Rosario Malik has completed 88 therapy visits for treatment of expressive/receptive language and cognitive deficits s/p concussion. Patient reports improved use of compensatory memory strategies of: list making, calendars, and using text messages for recalling conversations. She reports improvement with word findi ng (which becomes more difficult with increased communication pressure/stress), recalling co nversations/important details/lists. She continues to have increased difficulty using strate gies when under stress or when participating in social environments outside of speech therap y however expresses she is aware of strategies and just needs continued practice using techn iques. She does express that her family/communication partners are not supportive and do not allow necessary wait time to functionally use discussed tasks for carryover. She has discus sed concerns re: safety in the home environment and states she is working with a counselor/p sychologist re: these concerns. did provide resources to [facility]. At this time Rosario stat es that she is independent with her HEP. Pain Assessment: Pain Scale Used: NUMERIC Pain Rating Pre Assessment: 0 Assessment Rosario Malik has been participating in therapy for treatment of changes in memory and word finding abilities s/p concussion on 03/15/16. Patient demonstrates objective improv ements with using memory strategies of: checking back (referring to previous notes/text mess ages), making associations with colors/features, repeating details. She has demonstrated imp roved independence with use of memory compensatory strategies and use of word finding strate gies when under pressure or feeling stressed. Rosario Malik has completed therapy for treatment of expressive and receptive langua ge therapy and cognitive therapy s/p concussion. Most treatment goals have been met. Patient continues to have impairments with memory and word finding affecting her functional ability to express herself when under stress, recall details in conversation, and recall important dates. With this patients continued focus on her HEP this/these impairments should continue to improve. Rehabilitation potential: Patient demonstrates good potential to achieve established goals to address the documented impairments by participating in skilled speech and language therap y services. Goals: Patient Specific Functional Scale Goal 1: Pt will demonstrate carryover and use of word fin ding and memory strategies to support recall in 12 weeks. Patient Specific Functional Scale Goal 1 Status Comment: Goal met. Pt is using previous jackie t messages to recall important details, is beginning to write notes in a memory book. Increa sed difficulty noted with stress. Patient Specific Functional Scale Goal 2: Pt has demonstrated improved immediate memory milena lities with independent use of memory strategies. Has increased ability to complete baking a nd cooking activities without need for frequent checking recipe. RBANs not re-administered p er request. Pt expresses she feels she is progressing towards goals. Needs continued HEP Patient Specific Functional Scale Goal 3: Rosario will complete immediate recall tasks x 9 0% accuracy with independent use of memory strategies in 12 weeks. Patient Specific Functional Scale Goal 3 Status: 8 Patient Specific Functional Scale Goal 3 Status Comment: Goal almost met, needs occasional min cues to use memory strategies. Verbalizes techniques [place] without cues. Patient Caregiver's Ability to Manage Condition: 4 FUR TANNER G-Codes Functional Assessment Tool Used: NOMS Score: 5 - The individual consistently requires minimal cues to recall or use external dominique ry aids for complex and novel information. The individual consistently requires minimal cue s to plan and follow through on complex future events (e.g. menu planning and meal preparati on, planning a democrat, etc.). Functional Limitations: Memory Memory Current Status (G9168): At least 20 percent but less than 40 percent impaired, limit ed or restricted Memory Goal Status (G9169): At least 20 percent but less than 40 percent impaired, limited or restricted Memory Discharge Status (G9170): At least 20 percent but less than 40 percent impaired, cárdenas ited or restricted Plan Date of Onset: 03/15/2016 Start of Care Date: 05/16/2016 Requested # of Visits: 12 visits 1x/week for 12 Certification From: 08/16/2016 Certification To: 09/19/16 Treatment Plan/Interventions 42925 - Cognitive [id number] - Cognitive [id number] - Speech/Hearing Treatment Patient and/or family has indicated understanding of treatment needs and actively participa kelley in the creation of this plan for care. Today's Treatment Start Time: 1600 Stop time: 1645 Duration: 45 minutes Timed Treatment Codes: 0 minutes # of Speech Visits to Date: 8 Objective: Completed written D/c Plan and established exercises to continue cognitive and e xpressive/receptive language stimulation with HEP. Next Visit: Discharge to HEP. Electronically signed by: Kathi Soto Speech Pathologist, 09/19/2016 15:49 Patient Name: Rosario Malik/: 1965/ docum ented in this encounter Plan of Treatment +--------+---------+ + + + | Date | Type | Specialty | Care Team | Description | +--------+---------+ + + + | 03/31/ | Office | Pulmonology | Mukul Clark MD | | | 2019 | Visit | | [address] | | | | | | [place] [facility] [place] | | | | | | [address] | | | | | | | | +--------+---------+ + + + | 11/24/ | Office | Cardiology | [place], | | | 2019 | Visit | | SINDHU Erickson [address] | | | | | | [place], | | | | | | [place] [address] | | | | | | [phone] | | | | | | | [...] + | Diagnosis | + + | Word finding difficulty - Primary Other speech disturbance | + + | Impaired memory Memory loss | + + | Concussion with brief (less than one hour) loss of consciousness Concussion with loss | | of consciousness from 31 to 59 minutes | + + documented in this encounter"
--- OUTSIDE RECORDS SUMMARY | ~2019-02-28 | XMS | Encounter Summary ---
Demographics + + + | Address | [address] | | | [place] [address] | + + + | Home Phone [...] Team Providers + +------+ + | Care Patient Ambassador Name | Role | Phone | + +------+ + | Juan Cherry DO | PCP | | + +------+ + Reason for Visit +--------+ + | Reason | Comments | +--------+ + | Other | increased shortnes of breath | +--------+ + Encounter Details +--------+ + + + + | Date | Type | Department | Care Team | Description | +--------+ + + + + | 12/21/ | Telephone | [facility] [place] | Marilyn Osborne, | Other (increased | | 2012 | | PULMONARY [address] | RN | shortnes of breath) | | | | [place], | | | | | | [place] [address] | | | | | | [phone] | | | +--------+ + + + [...] [place] | | | | | | [address] | | | | | | | | +--------+---------+ + + + | 11/24/ | Office | Cardiology | [place], | | | 2019 | Visit | | SINDHU Erickson [address] | | | | | | [place] | | | | | | [place] [address] | | | | | | [phone] | | | | | | | | +--------+---------+ + + + documented as of this encounter Visit Diagnoses Not on filedocumented in this encounter"
--- OUTSIDE RECORDS SUMMARY | ~2019-02-28 | XMS | Encounter Summary ---
Demographics + + + | Address | [address] | | | [place] [address] | + + + | Home Phone [...] Team Providers + +------+ + | Care Dropper Tank Storage Name | Role | Phone | + [...] [facility] | | | | | Headache | Shashi Witt, | [address] | | | | | Pituitary | MD Need | [place], | | | | | tumor | updated | [place] | | | | | Procedures | address | [address] | | | | | CT Head w wo | | Phone: | | | | | Contrast | | [phone] | | | | | | | Fax: | | | | | | | [phone] | +--------+--------+ + + + + Reason [...] [facility] | | | | | Headache | Shashi Witt, | [address] | | | | | Pituitary | MD Need | [place], | | | | | tumor | updated | [place] | | | | | Procedures | address | [address] | | | | | CT Head w wo | | Phone: | | | | | Contrast | | [phone] | | | | | | | Fax: | | | | | | | [phone] | +--------+--------+ + + + + Encounter Details +--------+ + + + + | Date | Type | Department | Care Team | Description | +--------+ + + + + | 12/17/ | Hospital | [facility] | Shashi Segovia | Headache; | | 2013 | Encounter | MED CTR CT [address] | MD M[address] Need updated | Pituitary tumor | | | | [place], | address | | | | | [place] [address] | | | | | | [phone] | | | +--------+ + + + [...] | | | | | order to [facility]. | | | | | + [...] | | | | send order to [facility] | | | | | | | [facility]. | | | | | | | This is not a new | | | | | | | order, just a change | | | | | | | in settings. | | | | | + + + +---------+ + + | ziprasidone | Take 80 mg by mouth | | 0 | 09/13/20 | | | (GEODON) 80 MG | [...] [place] | | | | | | [address] | | | | | | | | +--------+---------+ + + + | 11/24/ | Office | Cardiology | [place], | | | 2019 | Visit | | SINDHU Erickson [address] | | | | | | [place], | | | | | | [place] [address] | | | | | | [phone] | | | | | | | | +--------+---------+ + + + documented as of this encounter Procedures + +--------+ + + + | Procedure Name | Priori | Date/Time | Associated Diagnosis | Comments | | | ty | | | | + +--------+ + + + | CT HEAD W WO | Routin | 12/17/2013 | Headache | Results for this | | CONTRAST | e | 2:33 PM | Pituitary tumor | procedure are in the | | | | PDT | | results section. | + +--------+ + + + documented in this encounter Results CT Head w wo Contrast (12/17/2013 2:33 PM PDT) + + | Specimen | + + | | + + + + + | Narrative | Performed At | + + + | CT HEAD W WO CONTRAST HISTORY: possible pituitary adenoma. | [facility] | | Cannot get MRI COMPARISON: CT head 10/09/2010 | LAB | | TECHNIQUE: Axial images were obtained from vertex to skull base both | | | prior to and following IV administration of 80 mL Omnipaque 350 | | | contrast. Multiplanar reformatted images created. FINDINGS: The | | | calvarium and visible facial bones are intact. The extracalvarial | | | soft tissues are unremarkable. The brain shows normal morphology and | | | oates-white matter differentiation without intracranial hemorrhage, | | | mass effect, extra axial fluid collection, acute large vessel | | | infarct, or abnormal contrast enhancement. Overall, the pituitary | | | does not appear to be enlarged and demonstrates relatively | | | homogeneous enhancement. The ventricles are normal in size. The basal | | | cisterns are patent. The orbital contents are normal. Postsurgical | | | changes seen in the medial wall of the right maxillary sinus. | | | Visualized paranasal sinuses are otherwise unremarkable. Bilateral | | | mastoid air cells and middle ear cavities are normally aerated. | | | IMPRESSION - No evidence of abnormal enlargement of the pituitary, | | | with relatively homogeneous enhancement. 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 Dictated and Signed | | | by: Sterling Lee MD Electronically signed: 12/17/2013 3:36 PM | | + + + + + | Procedure Note | + + | Reed, Rad Results In - 12/17/2013 3:[address] HEAD W WO CONTRAST | | | | HISTORY: possible pituitary adenoma. Cannot get MRI | | | | COMPARISON: CT head 10/09/2010 | | | | TECHNIQUE: Axial images were obtained from vertex to skull base both prior to | | and following IV administration of 80 mL Omnipaque 350 contrast. Multiplanar | | reformatted images created. | | | | FINDINGS: | | The calvarium and visible facial bones are intact. | | The extracalvarial soft tissues are unremarkable. | | The brain shows normal morphology and oates-white matter differentiation without | | intracranial hemorrhage, mass effect, extra axial fluid collection, acute large | | vessel infarct, or abnormal contrast enhancement. Overall, the pituitary does | | not appear to be enlarged and demonstrates relatively homogeneous enhancement. | | The ventricles are normal in size. The basal cisterns are patent. | | The orbital contents are normal. | | Postsurgical changes seen in the medial wall of the right maxillary sinus. | | Visualized paranasal sinuses are otherwise unremarkable. Bilateral mastoid air | | cells and middle ear cavities are normally aerated. | | | | | | IMPRESSION - | | No evidence of abnormal enlargement of the pituitary, with relatively | | homogeneous enhancement. 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
--- OUTSIDE RECORDS SUMMARY | ~2019-02-28 | XMS | Encounter Summary ---
Demographics + + + | Address | [address] | | | [place] [address] | + + + | Home Phone | | + + + | Preferred Language | Unknown | + + + | Marital Status | Single | + + + | Moravian Affiliation | 1041 | + + + | Race | Unknown | + + + | Ethnic Group | Unknown | + + + Author + + + | Author | [facility] | | | and [place] | + + + | Organization | [facility] | | | [...] Team Providers + +------+ + | Care Manager Biologics Name | Role | Phone | + +------+ + PCP | Unavailable | + +------+ + Encounter Details +--------+ + + + + | Date | Type | Department | Care Team | Description | +--------+ + + + + | 08/25/ | [facility] | [facility] | | | | 2009 | Encounter | MED CTR XRAY [address] | | | | | | [place] | | | | | | [place] [address] | | | | | | [phone] | | | +--------+ + + + [...] [place] | | | | | | [address] | | | | | | | | +--------+---------+ + + + | 11/24/ | Office | Cardiology | [place], | | | 2020 | Visit | | SINDHU Erickson [address] | | | | | | [place], | | | | | | [place] [address] | | | | | | [phone] | | | | | | | | +--------+---------+ + + + documented as of this encounter Visit Diagnoses Not on filedocumented in this encounter"
--- OUTSIDE RECORDS SUMMARY | ~2019-02-28 | XMS | Encounter Summary ---
Demographics + + + | Address | [address] | | | [place] [address] | + + + | Home Phone | | + + + | Preferred Language | Unknown | + + + | Marital Status | Single | + + + | Yarsani Affiliation | 1041 | + + + | Race | Unknown | + + + | Ethnic Group | Unknown | + + + Author + + + | Author | [facility] | | | and [place] | + + + | Organization | [facility] | [...] Team Providers + +------+ + | Care Civil Cadd Technician Name | Role | Phone | [...] | +--------+ + + + + | 05/27/ | Telephone | [facility] [place] [facility] | Weber, Andriy | Other | | 2018 | | [address] | MD Robert [address] | | | | | [place] | [facility] | | | | | [address] | [place] [address] | | | | | [phone] | [phone] | | | | | | | [...] [place] | | | | | | [address] | | | | | | | | +--------+---------+ + + + | 11/24/ | Office | Cardiology | [place], | | | 2019 | Visit | | SINDHU Erickson [address] | | | | | | [place] | | | | | | [place] [address] | | | | | | [phone] | | | | | | | | +--------+---------+ + + + documented as of this encounter Visit Diagnoses Not on filedocumented in this encounter"
--- OUTSIDE RECORDS SUMMARY | ~2019-02-28 | XMS | Encounter Summary ---
Demographics + + + | Address | [address] | | | [place] [address] | + + + | Home Phone [...] + + + | Author | [facility] | | | and [place] | + + + | Organization | [facility] | | | and [...] Team Providers + +------+ + | Care Front Office Manager Name | Role | Phone | [...] [address] | | | | | [place], | [place] | | | | | [place] [address] | [address] | | | | | [phone] | | | +--------+--------+ + + + [...] [place] | | | | | | [address] | | | | | | | | +--------+---------+ + + + | 11/24/ | Office | Cardiology | [place], | | | 2019 | Visit | | SINDHU Erickson [address] | | | | | | [place], | | | | | | [place] [address] | | | | | | [phone] | | | | | | | | +--------+---------+ + + + documented as of this encounter Visit Diagnoses Not on filedocumented in this encounter"
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
--- OUTSIDE RECORDS SUMMARY | ~2019-02-28 | XMS | Encounter Summary ---
Demographics + + + | Address | [address] | | | [place] [address] | + + + | Home Phone [...] Team Providers + +------+ + | Care Concrete Block Maker Name | Role | Phone | [...] | +--------+ + + + + | 04/20/ | Telephone | [facility] [place] | Marilyn Osborne, | Other | | 2012 | | PULMONARY [address] | RN | | | | | [place], | | | | | | [place] [address] | | | | | | [phone] | | | +--------+ + + + [...] | | | | [place] | | | | | | [address] | | | | | | | | +--------+---------+ + + + | 11/24/ | Office | Cardiology | [place], | | | 2019 | Visit | | SINDHU Erickson [address] | | | | | | [place], | | | | | | [place] [address] | | | | | | [phone] | | | | | | | | +--------+---------+ + + + documented as of this encounter Visit Diagnoses Not on filedocumented in this encounter"
--- OUTSIDE RECORDS SUMMARY | ~2019-02-28 | XMS | Encounter Summary ---
Demographics + + + | Address | [address] | | | [place] [address] | + + + | Home Phone | | + + + | Preferred Language | Unknown | + + + | Marital Status | Single | + + + | Orthodoxy Affiliation | 1041 | + + + | Race | Unknown | + + + | Ethnic Group | Unknown | + + + Author + + + | Author | [facility] | | | and [place] | + + + | Organization | [facility] | | | [...] Team Providers + +------+ + | Care Hr Analyst Name | Role | Phone | [...] Description | +--------+---------+ + + + | 03/22/ | [facility] [place] | [place], | COPD exacerbation | | 2013 | Visit | PULMONARY [address] | Loreta Alonso MD | ([facility]) (Primary Dx); | | | | [place], | | Complex sleep apnea | | | | [place] [address] | | syndrome | | | | [phone] | | | +--------+---------+ + + + [...] + + + | Blood Pressure | 112/62 | 03/22/2013 9:55 AM | | | | | PST | | + + + + + | Pulse | 112 | 03/22/2013 9:55 AM | | | | | PST | | + + + + + | Temperature | 36.7 C (98 F) | 03/22/2013 9:55 AM | | | | | PST | | + + + + + | Respiratory Rate | - | - | | + + + + + | Oxygen Saturation | 94% | 03/22/2013 9:55 AM | | | | | PST | | + + + + + | Inhaled Oxygen | - | - | | | Concentration | | | | + + + + + | Weight | 65.4 kg (144 lb 1.6 | 03/22/2013 9:55 AM | | | | oz) | PST | | + + + + + | Height | 157.5 cm (5' 2") | 03/22/2013 9:55 AM | | | | | PST | | + + + + + | Body Mass Index | 26.36 | 03/22/2013 9:55 AM | | | | | PST | | + + + + + documented in this encounter Patient Instructions Patient Instructions Loreta London MD - 03/22/2013 10:30 AM PSTTake prednisone tap er as directed. I will review your CPAP download and let you know what is shows, but continue to use it whe never you are sleeping. If you are in distress you need to go back to the ER. I resent the ProAir prescription to Michelle. documented in this encounter Progress Notes Loreta London MD - 03/22/2013 10:12 AM PSTFormatting of this note might be differe nt from the original. Pulmonary Follow Up Note MD [place] [facility] [address] [place], [address] HPI Rosario Malik is a 48 y.o. female patient of Juan Cherry here today for acute add on for COPD. She notes that since Friday she has had increased difficulty breathing. She called in to the hospital, and notes she never received a phone call. She then came in to the emergency r oom. She was treated with nebulizers and declined admission to the hospital as she had to wo rk. She then comes in to clinic today. She was discharged with a prescription for prednisone , which she turned in at the pharmacy before she came here. She has not had her ProAir in 2 weeks. She notes that [facility] does not have her most rece nt prescription. She notes that she also called in twice and never received a call back for either of these calls either. I checked, and it was sent on in response to her call . She notes that she is taking her Spiriva and her Advair, and is taking her nebulizer treatm ents. She took her nebulizer four times a day. Two Duoneb treatments and 2 albuterol treatme nts. She does not have an active prescription for Duonebs, as they are not supposed to be us ed with the Spiriva as the two are contraindicated. She denies any antecedent URI symptoms, any fevers, chills or sweats. She is using her CPAP machine. She reports that she dropped it off for a download at 9am to day. 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 Allergies: Allergies Allergen Reactions Doxycycline Hives Erythromycin Base Food Meperidine Nsaids Onion Extract Pork Allergy Medications: Outpatient Encounter Prescriptions as of 03/22/2013 Medication Sig Dispense Refill albuterol (PROAIR HFA) 90 mcg/puff inhaler Inhale 2 puffs into the lungs every 6 hours as needed for Wheezing or Shortness of Breath. 1 Inhaler 5 [DISCONTINUED] albuterol (PROAIR HFA) 90 mcg/puff inhaler Inhale 2 puffs into the lungs every 6 hours as needed. 1 Inhaler 5 albuterol 2.5 mg/3 mL nebulizer solution Take 3 mLs by nebulization every 6 hours as ne eded for Wheezing or Shortness of Breath. 150 mL 5 cetirizine (ZYRTEC) 10 mg tablet Take 1 tablet by mouth Daily. 90 tablet 3 [DISCONTINUED] Cholecalciferol (VITAMIN D3) 2000 UNITS CAPS Take by mouth Daily. DULoxetine (CYMBALTA) 60 MG capsule Take one by mouth daily fluticasone-salmeterol (ADVAIR DISKUS) 500-50 mcg/puff diskus inhaler inhale 1 puff by mouth twice daily gabapentin (NEURONTIN) 800 MG tablet Take 800 mg by mouth 3 times daily. [DISCONTINUED] levothyroxine (LEVOXYL) 112 mcg tablet Take 50 mcg by mouth Daily. levothyroxine (SYNTHROID, LEVOTHROID) 75 MCG tablet Take 75 mcg by mouth every morning (before breakfast). Multiple Vitamins-Minerals (MULTIVITAMIN PO) Take by mouth Daily. omeprazole (PRILOSEC) 20 mg capsule Take 20 mg by mouth Daily as needed. predniSONE (DELTASONE) 10 mg tablet Take 10 mg by mouth Daily. Taper. Respiratory Therapy Supplies MISC Please provide patient with necessary CPAP supplies ( she did not specify, okay to send order as appropriate) Diagnosis Code(s)327.23 . Length of Need 99 months. Please send order to [facility]. 1 each 0 Respiratory Therapy Supplies MISC Change CPAP back to 11-14 cm H2O. All necessary suppl ies. No oxygen bleed in. Diagnosis Code(s)327.23. Length of Need: Lifetime. Please send orde r to [facility]. This is not a new order, just [...] Review of Systems Constitutional: Denies fever, chills, sweats, and change in weight. Eyes: Denies vision change and eye irritation. ENT: Denies earache, and nosebleeds. She is having hoarseness. She is having a hard time h earing, and so is going to have a hearing test. Resp: See HPI. CV: Denies palpitations, syncope, and peripheral edema. Has chest pains off and on. GI: Denies heartburn, nausea, vomiting, and abdominal pain. : Denies difficulty emptying bladder. Has difficulty urinating. Objective BP 112/62 | Pulse 112 | Temp 36.7 C (98 F) (Tympanic) | Ht 1.575 m (5' 2") | Wt 65.363 kg (144 lb 1.6 oz) | BMI 26.36 kg/m2 | SpO2 94% RA General Appearance: Alert, cooperative, no distress, appears stated age, appears very anxi ous Head: Normocephalic, without obvious abnormality, atraumatic Eyes: PERRL, conjunctiva clear, no scleral icterus, EOM's intact Ears: Normal TM's, external auditory canals, normal acuity Nose: Nares normal, septum midline, mucosa normal Mouth: No oral lesions or exudate Neck: Supple, symmetrical, no adenopathy Lungs: No accessory muscle use, breath sounds are somewhat diminished bilaterally with so me prolongation of the expiratory phase, no wheezes, crackles or rhonchi Chest Wall: No deformity Heart: Mildly tachycardic, regular, no murmur, rub or gallop Abdomen: Soft, non-tender, non-distended Extremities: No cyanosis, clubbing, or edema Pulses: Radial pulses 2+ and symmetric Skin: Warm and dry Lymph nodes: Cervical and supraclavicular nodes normal Data: Chest x-ray was done on March 22, 2013 and was reviewed and interpreted in clinic today. It shows hyperinflation consistent with chronic lung disease. Immunization History Administered Date(s) Administered INFLUENZA, >= 4YO W/PRESERVATIVE IM 12/12/2010 INFLUENZA, PRESERVATIVE FREE IM 12/13/2011, 11/27/2012 Pneumococcal (Adult) 02/24/2011 Tdap 01/22/2008 Assessment 1. COPD exacerbation - When I initially came in, she looked somewhat distressed, but as I s poke with her, she calmed down, and did not look distressed. She did not have any wheezing o n exam, and she is saturating fine. She repeatedly has issues getting medications filled, cl aims phone calls are not returned, etc, in a way that is not happening with other patients, so I am not sure what is going on lately. She looks very anxious today, and attributes it to her gabapentin. I am not certain why the abrupt decompensation with her return, but suspect there is some o ther issue at hand here, though I cannot figure it out right now. I recommended that she salvador e the prednisone, not overuse the albuterol, and go to the emergency room if in distress. 2. Complex sleep apnea syndrome - On CPAP. She reports she took her machine in for a downlo ad this morning, but we did not receive it, and I have not received it today. Compliance has been generally poor lately. Plan 1.Take prednisone taper from ER. 2.Continue Advair and Spiriva. 3.I would consider anxiety management. 4. Continue CPAP. We will call about download. 5. I will get a medication fill list from the pharmacy. She was advised to call if new pulmonary symptoms were to develop. Return to clinic in 2 weeks, or sooner with concerns. CC: Juan Cherry DO Portions of this report were transcribed using voice recognition software. Every effort wa s made to ensure accuracy; however, inadvertent computerized principal network architect errors may be pre sent. documented in [...] | | | | | | [place] [address] | | | | | | [phone] | | | | | | | | +--------+---------+ + + + documented as of this encounter Visit Diagnoses + + | Diagnosis | + + | COPD exacerbation (HCC) - Primary Obstructive chronic bronchitis with exacerbation | + + | Complex sleep apnea syndrome Unspecified sleep apnea | + + documented in this encounter
--- OUTSIDE RECORDS SUMMARY | ~2019-02-28 | XMS | Encounter Summary ---
Demographics + + + | Address | [address] | | | [place] [address] | + + + | Home Phone [...] Team Providers + +------+ + | Care Electric Tripper Machine Operator Name | Role | Phone | + +------+ + | Juan Cherry DO | PCP | | + +------+ + Encounter Details +--------+ + + + + | Date | Type | Department | Care Team | Description | +--------+ + + + + | 01/20/ | Hospital | [facility] | Guru Cárdenas, | | | 2011 | Encounter | MED CTR EMERGENCY | [address] | | | | | CENTER [address] | [facility] [place] | | | | | [place], [place] | [place] [address] | | | | | [address] | [phone] | | | | | [phone] | | | | | | | Ozzy Aponte | | | | | | MD Delio [address] | | | | | | [address] [place] | | | | | | [place] [address] | | | | | | [phone] | | | | | | | [...] + + + +---------+ + + | Calcium | take 600 mg-unit | | 0 | 11/25/19 | | | Carbonate-Vitamin D | daily | | | 12 | 3 | | (CALCIUM + D PO) | | | | | | [...] [place] | | | | | | [address] | | | | | | | | +--------+---------+ + + + | 11/24/ | Office | Cardiology | [place], | | | 2019 | Visit | | SINDHU Erickson [address] | | | | | | [place] | | | | | | [place] [address] | | | | | | [phone] | | | | | | | | +--------+---------+ + + + documented as of this encounter Procedures + +--------+ + + + | Procedure Name | Priori | Date/Time | Associated Diagnosis | Comments | | | ty | | | | + +--------+ + + + | XR FOOT RIGHT 3 + VW | Routin | 01/21/2012 | | Results for this | | | e | 9:26 AM | | procedure are in the | | | | PST | | results section. | + +--------+ + + + documented in this encounter Results XR Foot Right 3 + Vw (01/21/2012 9:26 AM PST) + + | Specimen | + + | | + + + + + | Narrative | Performed At | + + + | Located Within [facility] | [place] | | Department [address] [facility] | [facility] | | [ rep [address]] [ rep [facility] | | [facility]] Signed | - IMAGING | | | | | Patient Name: JADYN SCHMITZ | | | Physician: MARY : 1965 Age: 47 Sex: F Unit | | | #: [id number] Exam Date: 01/21/12 Location: | | | EDU Report #: [id number] Page: | | | %(RAD)RES..mtdd.print.filter("pg") of %(RAD) | | | RES..mtdd.print.filter("tpg") | | | | | | Accession Number: [id number] | | | RIGHT FOOT CLINICAL HISTORY: FALL. FINDINGS: | | | AP, lateral, and oblique views of the right foot show no acute | | | fracture or bony destructive change. Joint relationships are | | | normal. A remote fracture of the medial margin of the proximal 2nd | | | phalanx is again seen, unchanged in position and appearance from the | | | comparison exam. There is also arthrodesis of the proximal | | | interphalangeal joint of the 2nd toe, unchanged. No bony destructive | | | change is present. Joint relationships are otherwise normal. No | | | radiographic soft tissue changes are seen. IMPRESSION: | | | 1. OLD AVULSION FRACTURE OF THE BASE OF THE 2ND PROXIMAL PHALANX. | | | FUSED PROXIMAL INTERPHALANGEAL JOINT OF THE 2ND TOE. NO ACUTE | | | ABNORMALITY OF THE FOOT. Dictated Date/Time: 01/21/2012 | | | 09:26 Transcribed Date/Time: 01/21/2012 09:32 | | | Tool Tender: ChrisARELIS <<Signature on File>> | | | | | | Cesar Ren MD01/21/12 [id number] <Electronically signed by | | | Cesar Ren MD> Cesar Ren MD 01/21/12 | | | 0998 Tool Tender: Neal [email or web address]/27/12 0932 | | | | | + + + + + + + + | Performing | Address | City/State/Zipcode | Phone Number | | Organization | | | | + + + + + | [facility] | [address] | [place] | [phone] | | [facility] | | [address] | | | - IMAGING | | | | + + + + + documented in this encounter Visit Diagnoses Not on filedocumented in this encounter
--- OUTSIDE RECORDS SUMMARY | ~2019-02-28 | XMS | Encounter Summary ---
Demographics + + + | Address | [address] | | | [place] [address] | + + + | Home Phone | | + + + | Preferred Language | Unknown | + + + | Marital Status | Single | + + + | Jain Affiliation | [id number] | + + + [...] Team Providers + +------+ + | Care Intel Analyst Name | Role | Phone | + +------+ + | Juan Cherry DO | PCP | | + +------+ + Encounter Details +--------+ + + + + | Date | Type | Department | Care Team | Description | +--------+ + + + + | 11/12/ | Hospital | [facility] | Andriy Weber | | | 2016 | Encounter | MED CTR XRAY [address] | MD [address] | | | | | [place] | [place] | | | | | [place] [address] | [place] [address] | | | | | [phone] | [phone] | | | | | | | [...] | | | | | order to [facility]. | | | | | + + [...] | | | | send order to [facility] | | | | | | | [facility]. | | | | | | [...] | | | | | | | ([facility]) | | | | | | + + + +---------+ + + | B-D 3CC JOELLE-UYEN | | | 0 | 09/13/19 | | | SYR 25GX1/2" 25G X | | | | 16 | 7 | | 1-1/2" 3 ML MISC | | | | | | + + + +---------+ + + | | Take 1 capsule by | | 0 | 10/13/19 | | | Svqzzenpnr-KUWS-Ioob | mouth as needed. | | | 16 | 7 | | -Cod [id number] MG | | | | | | [...] | | | | | | | ([facility]) | | | | | | [...] Take 1 tablet by | 30 | 2 | 11/09/19 | | | hydrochloride | mouth every 6 hours | tablet | | 16 | 6 | | (ATARAX) 25 mg | as needed for | | | | | | tablet | Itching for up to 30 | | | | | | | days. | | | | | + [...] + + + +---------+ + + | nitroglycerin | Place 1 tablet under | 30 | 0 | 04/16/19 | | | (NITROSTAT) 0.4 mg | the tongue every 5 | tablet | | 16 | 6 | | SL tablet | minutes as needed | | | | | | | (Esophogeal spasm). | | | | | + + [...] + + + +---------+ + + | pentosan | Take 1 capsule by | 90 | 3 | 11/09/19 | | | polysulfate | mouth 3 times daily | capsule | | 16 | 6 | | (ELMIRON) 100 mg | (before meals). | | | | | | capsule | | | [...] chloride | Take 1 tablet by | 20 | 0 | 08/04/19 | | | (K-DUR) 20 mEq ER | mouth Daily. | tablet | | 16 | 6 | | tablet | | [...] [place] | | | | | | [address] | | | | | | | | +--------+---------+ + + + | 11/24/ | Office | Cardiology | [place], | | | 2019 | Visit | | [address] | | | | | | [place], | | | | | | [place] [address] | | | | | | [phone] | | | | | | | [...]
--- OUTSIDE RECORDS SUMMARY | ~2019-02-28 | XMS | Encounter Summary ---
Demographics + + + | Address | [address] | | | [place] [address] | + + + | Home Phone | | + + + | Preferred Language | Unknown | + + + | Marital Status | Single | + + + | Mormonism Affiliation | 1041 | + + + | Race | Unknown | + + + | Ethnic Group | Unknown | + + + Author + + + | Author | [facility] | | | and [place] | + + + | Organization | [facility] | | | and [...] Team Providers + +------+ + | Care Health Care Aide Name | Role | Phone | + +------+ + | Juan Cheryr DO | PCP | | + +------+ + Encounter Details +--------+ + + + + | Date | Type | Department | Care Team | Description | +--------+ + + + + | 06/02/ | Documentati | [facility] | Janey Low, | | | 2013 | on | MED CTR THERAPY PT | [facility] [address] | | | | | OP [address] | [place], [place] | | | | | [place], [place] | [address] | | | | | [address] | [phone] | | | | | [phone] | | | +--------+ + + + [...] of this encounter Progress Notes Janey Low, [facility] - 06/02/2013 9:39 [facility] [address] [place] [address] Cancellation/No Show Date: 06/02/2013 Patient Information Patient Name: Rosario Malik Date of : 1965 Age: 48 y.o. Reason for missed visit: Pt called to cancel not feeling well. Phone call placed: no Plan: Electronically signed by: Janey Low PTA, 06/02/2013 9:39 Patient Name: Rosario Malik/: 1965/ documented in [...] [place] | | | | | | [id number] | | | | | | | | +--------+---------+ + + + | 11/24/ | Office | Cardiology | [place] | | | 2019 | Visit | | [address] | | | | | | [place], | | | | | | [place] [address] | | | | | | [phone] | | | | | | | | +--------+---------+ + + + documented as of this encounter Visit Diagnoses Not on filedocumented in this encounter"
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
--- OUTSIDE RECORDS SUMMARY | ~2019-02-28 | XMS | Encounter Summary ---
Demographics + + + | Address | [address] | | | [place] [address] | + + + | Home Phone | | + + + | Preferred Language | Unknown | + + + | Marital Status | Single | + + + | Samaritan Affiliation | 1041 | + + + | Race | Unknown | + + + | Ethnic Group | Unknown | + + + Author + + + | Author | [facility] | | | and [place] | + + + | Organization | [facility] | | | [...] Team Providers + +------+ + | Care Abalone Processor Name | Role | Phone | + +------+ + | Juan Cherry DO | PCP | | + +------+ + Reason for Visit + + + | Reason | Comments | + + + | Medication Refill | wanted to know refill history. | + + + Encounter Details +--------+--------+ + + + | Date | Type | Department | Care Team | Description | +--------+--------+ + + + | 04/15/ | Refill | [facility] | Rajwinder Monzon, | Medication Refill | | 2013 | | PULMONARY [address] | Cert [place] | ( wanted to know | | | | [place], | | refill history.) | | | | [place] [address] | | | | | | [phone] | | | +--------+--------+ + + + [...] | 2019 | Visit | | SINDHU Erik[address]son [address] | | | | | | [place], | | | | | | [place] [address] | | | | | | [phone] | | | | | | | | +--------+---------+ + + + documented as of this encounter Visit Diagnoses Not on filedocumented in this encounter"
--- OUTSIDE RECORDS SUMMARY | ~2019-02-28 | XMS | Encounter Summary ---
Demographics + + + | Address | [address] | | | [place] [address] | + + + | Home Phone [...] Team Providers + +------+ + | Care Inlayer Silver Name | Role | Phone | + +------+ + | Juan Cherry DO | PCP | | + +------+ + Reason for Visit +--------+ + | Reason | Comments | +--------+ + | Apnea | | +--------+ + Encounter Details +--------+---------+ + + + | Date | Type | Department | Care Team | Description | +--------+---------+ + + + | 03/13/ | Office | [facility] | Maxim Delgado PA | Organic insomnia, | | 2012 | Visit | SLEEP DISORDER [address] | [address] | unspecified (Primary | | | | [address] [place] | [place] | Dx); GARRY on CPAP | | | | [place] [address] | [address] | | | | | [phone] | | | +--------+---------+ + + + [...] + + + | Blood Pressure | 102/60 | 03/13/2012 9:59 AM | | | | | PST | | + + + + + | Pulse | 82 | 03/13/2012 9:59 AM | | | | | PST | | + + + + + | Temperature | - | - | | + + + + + | Respiratory Rate | 14 | 03/13/2012 9:59 AM | | | | | PST | | + + + + + | Oxygen Saturation | - | - | | + + + + + | Inhaled Oxygen | - | - | | | Concentration | | | | + + + + + | Weight | 58.8 kg (129 lb 9.6 | 03/13/2012 9:59 AM | | | | oz) | PST | | + + + + + | Height | - | - | | + + + + + | Body Mass Index | 23.7 | 03/02/2012 10:23 AM | | | | | PST | | + + + + + documented in this encounter Progress Notes Maxim Delgado PA - 03/13/2012 10:08 AM PST Subjective: Patient ID: Rosario Malik is a 47 y.o. female. HPI last office visit was: 08/22/2011 date of polysomnography: 10/15/2011 AHI: 47.1 RDI: 53.4 Machine type: eigital with full face mask obtained from: [facility] pressure is: 8-12 cm 95%: 11.9 cm maxium: 11.9 cm CPAP download shows CPAP useage # nights: 08/30 average usage (all nights): 2:45 average usage (nights used): 2:45 Rosario comes in for CPAP compliance and insomnia follow up. She is wearing her CPAP on a nightly basis, but is getting some sleep without it. At her last visit, I suggested that ritesh russell stop taking naps in order to help her get more sleep at night, but she says she has been t oo tired during the day and has had to nap. I explained that her naps are contributing to h er inability to stay asleep at night. She seems to understand. I have discussed the download in detail. This shows that her sleep apnea is somewhat contro lled, with an AHI of 10.0, an improvement from last week when it was16.1. Her leaks have imp roved considerably since her last visit when she switched to a Respironics full face mask Review of Systems Objective: Physical Exam Assessment: Problem #1: OBSTRUCTIVE SLEEP APNEA (327.23) Her CPAP compliance is going pretty well, but she is not using her CPAP for 100% of her sle ep. 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 She has been napping during the day and sleeping without her CPAP at times. Plan: 1. She is to continue with CPAP indefinitely, with a goal of wearing her CPAP 100% of the t francy she is asleep. 2. She is to continue to limit her sleeping time to 1-5 am, with no naps during the day (or at least reduce the time of her naps gradually). She is to only sleep during that time. If she wakes and is not able to get back to sleep, she is to go to a dark, quiet room and sit, doing nothing until she gets sleepy. She is then to go back to bed and attempt to go to slee p with her CPAP. She is to keep a sleep diary during the next two weeks. I will follow up again in 2 weeks, sooner prn. Fifteen minutes were spent bvsa-md-susi, wit h the majority of time spent in counseling. Maxim Delgado PA-C cc: Juan Olswanger, DO documented in this enco unter Plan of Treatment +--------+---------+ + + + | Date | Type | Specialty | Care Team | Description | +--------+---------+ + + + | 03/31/ | Office | Pulmonology | Mukul Clark MD | | | 2019 | Visit | | [address] | | | | | | [place] | | | | | | [address] | | | | | | | | +--------+---------+ + + + | 11/24/ | Office | Cardiology | [place], | | | 2019 | Visit | | [address] | | | | | | [place] | | | | | | [place] [address] | | | | | | [phone] | | | | | | | | +--------+---------+ + + + documented as of this encounter Visit Diagnoses + + | Diagnosis | + + | Organic insomnia, unspecified - Primary | + + | GARRY on CPAP Obstructive sleep apnea (adult) (pediatric) | + + documented in this encounter"
--- OUTSIDE RECORDS SUMMARY | ~2019-02-28 | XMS | Encounter Summary ---
Demographics + + + | Address | [address] | | | [place] [address] | + + + | Home Phone [...] Team Providers + +------+ + | Care Solar Electric Practitioner Name | Role | Phone | + [...] | with brief | [address] | | | | n | loss of | [address] | [place], | | | | | consciousnes | [place], | [place] [address] | | | | | s | [place] [address] | Phone: | | | | | Post-concuss | Phone: | [phone] | | | | | ion vertigo | [phone] | Fax: | | | | | [phone] | Fax: | [phone] | | | | | (ICD-10-CM) | [phone] | | | | | | - [...] + + | 05/07/ | Office | [facility] | Aaron Rodriguez, | Dizziness (Primary | | 2017 | Visit | MED CTR THERAPY PT | MD [address] | Dx); Impaired | | | | OP [address] | [place] | mobility and | | | | [place] | [phone] | activities of daily | | | | [address] | | living; Concussion | | | | [phone] | Lakeshia Cleary, PT | with brief (less | | | | | [address] | than one hour) loss | | | | | [place] | of consciousness; | | | | | [address] | Intractable acute | | | | [...] might be different from t he original. [facility] CTR THERAPY PT OP [address] [place] [address] Physical Therapy Daily Treatment Note Date: 05/07/2016 [...] Rehab Precautions Office Visit from 05/01/2016 in [facility] CTR THERAPY PT OP Rehab Precautions Precautions [...] [place] | | | | | | [address] | | | | | | | | +--------+---------+ + + + | 11/24/ | Office | Cardiology | [place], | | | 2020 | Visit | | SINDHU Erickson [address] | | | | | | Circle [place], | | | | | | [place] [address] | | | | | | [phone] | | | | | | | [...]
--- OUTSIDE RECORDS SUMMARY | ~2019-02-28 | XMS | Encounter Summary ---
Demographics + + + | Address | [address] | | | [place] [address] | + + + | Home Phone [...] Team Providers + +------+ + | Care Service Order Dispatcher Name | Role | Phone | + +------+ + | Juan Cherry DO | PCP | | + +------+ + Encounter Details +--------+ + + + + | Date | Type | Department | Care Team | Description | +--------+ + + + + | 02/25/ | Documentati | [facility] | Kevin Weber, | | | 2014 | on | MED CTR PT [facility] | PT | | | | | [address] [place] | | | | | | [place] [address] | | | | | | [phone] | | | +--------+ + + + [...] documented as of this encounter Progress Notes Kevin Weber, PT - 02/25/2014 10[facility] [address] [place] [address] Physical Therapy Discharge Note Date: 02/25/2014 Patient Information Patient Name: Rosario Malik Date of : 1965 Age: 49 y.o. Date of Onset: Brian Miranda MD Referring Provider: No ref. provider foundG Total Number of Visits Completed: 2 Total Cancellations:3 Total No Shows: 0 Patient has failed to return to therapy for further treatment. Goal status is unknown at th is time. This note serves as discharge from therapy. Attempts have been made to schedule this patient for a formal therapy discharge treatment without success. At this time we find it necessary to discharge this patient from therapy se rvices. The last progress note or the patients initial evaluation will serve as objective status fo r purposes of discharge. Electronically signed by: Kevin Weber, PT, 02/25/2014 10:44 Patient Name: Rosario Malik/: 1965/ documented in [...] [place] | | | | | | [id number] | | | | | | | | +--------+---------+ + + + | 11/24/ | Office | Cardiology | [place], | | | 2019 | Visit | | SINDHU Erickson [address] | | | | | | [place], | | | | | | [place] [address] | | | | | | [phone] | | | | | | | | +--------+---------+ + + + documented as of this encounter Visit Diagnoses Not on filedocumented in this encounter"
--- OUTSIDE RECORDS SUMMARY | ~2019-02-28 | XMS | Encounter Summary ---
Demographics + + + | Address | [address] | | | [place] [address] | + + + | Home Phone | | + + + | Preferred Language | Unknown | + + + | Marital Status | Single | + + + | Jehovah'S Witness Affiliation | 1041 | + + + [...] Team Providers + +------+ + | Care Special Client Bus Driver Name | Role | Phone | + +------+ + | Juan Cherry DO | PCP | | + +------+ + Reason for Visit +--------+ + | Reason | Comments | +--------+ + | Other | increased shortness of breath | +--------+ + Encounter Details +--------+ + + + + | Date | Type | Department | Care Team | Description | +--------+ + + + + | 09/17/ | Telephone | [facility] | Kevin Sandoval, | Other (increased | | 2013 | | PULMONARY [address] | MD [address] | shortness of breath) | | | | [place], | [place], [place] | | | | | [place] [address] | [address] | | | | | [phone] | | | +--------+ + + + [...] [place] | | | | | | [address] | | | | | | | | +--------+---------+ + + + | 11/24/ | Office | Cardiology | [place], | | | 2020 | Visit | | [address] | | | | | | [place], | | | | | | [place] [address] | | | | | | [phone] | | | | | | | | +--------+---------+ + + + documented as of this encounter Visit Diagnoses Not on filedocumented in this encounter"
--- OUTSIDE RECORDS SUMMARY | ~2019-02-28 | XMS | Encounter Summary ---
Demographics + + + | Address | [address] | | | [place] [address] | + + + | Home Phone [...] Team Providers + +------+ + | Care Airplane Refueler Name | Role | Phone | + +------+ + | Juan Cherry DO | PCP | | + +------+ + Reason for Visit +--------+ + | Reason | Comments | +--------+ + | Other | RETURNING CALL | +--------+ + Encounter Details +--------+ + + + + | Date | Type | Department | Care Team | Description | +--------+ + + + + | 10/05/ | Telephone | [facility] [place] | Andriy Weber | Other (RETURNING | | 2015 | | [address] | MD [address] | CALL) | | | | [place], [place] | [facility] | | | | | [address] | [place] [address] | | | | | [phone] | [phone] | | | | | | | [...] [place] | | | | | | [address] | | | | | | | | +--------+---------+ + + + | 11/24/ | Office | Cardiology | [place], | | | 2019 | Visit | | SINDHU Erickson [address] | | | | | | [place], | | | | | | [place] [address] | | | | | | [phone] | | | | | | | | +--------+---------+ + + + documented as of this encounter Visit Diagnoses Not on filedocumented in this encounter"
--- OUTSIDE RECORDS SUMMARY | ~2019-02-28 | XMS | Encounter Summary ---
Demographics + + + | Address | [address] | | | [place] [address] | + + + | Home Phone [...] Providers + +------+ + | Care Health Club Attendant Name | Role | Phone | + +------+ + | Juan Cherry DO | PCP | | + +------+ + Reason for Visit +--------+ + | Reason | Comments | +--------+ + | Other | pt was to call | +--------+ + Encounter Details +--------+ + + + + | Date | Type | Department | Care Team | Description | +--------+ + + + + | 11/18/ | Telephone | [facility] [place] | Kevin Sandoval, | Other (pt was to | | 2013 | | PULMONARY [address] | MD [address] | call) | | | | [place], | [place] | | | | | [place] [address] | [address] | | | | | [phone] | | | +--------+ + + + [...] [place] | | | | | | [id number] | | | | | | | | +--------+---------+ + + + | 11/24/ | Office | Cardiology | [place], | | | 2019 | Visit | | SINDHU Erickson [address] | | | | | | [place] | | | | | | [place] [address] | | | | | | [phone] | | | | | | | | +--------+---------+ + + + documented as of this encounter Visit Diagnoses Not on filedocumented in this encounter"
--- OUTSIDE RECORDS SUMMARY | ~2019-02-28 | XMS | Encounter Summary ---
Demographics + + + | Address | [address] | | | [place] [address] | + + + | Home Phone | | + + + | Preferred Language | Unknown | + + + | Marital Status | Single | + + + | Evangelical Affiliation | 1041 | + + + [...] Team Providers + +------+ + | Care Vault Manager Name | Role | Phone | [...] + | 04/15/ | Refill | [facility] | Rajwinder Monzon, | Medication Refill | | 2013 | | PULMONARY [address] | Cert [place] | ( wanted to know | | | | [place], | | refill history.) | | | | [place] [address] | | | | | | [phone] | | | +--------+--------+ + + + [...] | | | | | | [place] [address] | | | | | | [phone] | | | | | | | | +--------+---------+ + + + documented as of this encounter Visit Diagnoses Not on filedocumented in this encounter"
--- OUTSIDE RECORDS SUMMARY | ~2019-02-28 | XMS | Encounter Summary ---
Demographics + + + | Address | [address] | | | [place] [address] | + + + | Home Phone [...] Team Providers + +------+ + | Care Field Marketing Lead Name | Role | Phone | + [...] Description | +--------+--------+ + + + | 08/17/ | Refill | [facility] [place] | Kevin Sandoval, | Medication Refill | | 2014 | | PULMONARY [address] | MD [address] | | | | | [place], | [place] | | | | | [place] [address] | [address] | | | | | [phone] | | | +--------+--------+ + + + [...] [place] | | | | | | [address] | | | | | | | | +--------+---------+ + + + | 11/24/ | Office | Cardiology | [place], | | | 2019 | Visit | | SINDHU Erickson [address] | | | | | | [place], | | | | | | [place] [address] | | | | | | [phone] | | | | | | | | +--------+---------+ + + + documented as of this encounter Visit Diagnoses + + | Diagnosis | + + | COPD (chronic obstructive pulmonary disease) (HCC) - Primary Chronic airway | | obstruction, not elsewhere classified | + + documented in this encounter"
--- OUTSIDE RECORDS SUMMARY | ~2019-02-28 | XMS | Encounter Summary ---
Demographics + + + | Address | [address] | | | [place] [address] | + + + | Home Phone | | + + + | Preferred Language | Unknown | + + + | Marital Status | Single | + + + | Christian Affiliation | 1041 | + + + | Race | Unknown | + + + | Ethnic Group | Unknown | + + + Author + + + | Author | [facility] | | | and [place] | + + + | Organization | [facility] | | | [...] Team Providers + +------+ + | Care Tie Maker Name | Role | Phone | [...] + + | 06/19/ | Emergency | [facility] | Nestor Martinez, | COPD with acute | | 2013 - | | MED CTR EMERGENCY | [address] | exacerbation (HCC) | | | | CENTER [address] | [place], [place] | (Primary Dx) | | 06/20/ | | [place] | [address] | | | 2013 | | [address] | | | | | | [phone] | Ozzie Hayes | | | | | | MD Ran [address] | | | | | | [address] [facility] | | | | | | [place] [address] | | | | | | [phone] | | | | | | | [...] + + + | Blood Pressure | 100/53 | 06/20/2013 12:53 AM | | | | | PDT | | + + + + + | Pulse | 78 | 06/20/2013 12:53 AM | | | | | PDT | | + + + + + | Temperature | 36.4 C (97.5 F) | 06/19/2013 9:07 PM | | | | | PDT | | + + + + + | Respiratory Rate | 20 | 06/20/2013 12:53 AM | | | | | PDT | | + + + + + | Oxygen Saturation | 91% | 06/20/2013 12:53 AM | | | | | PDT | | + + + + + | Inhaled Oxygen | - | - | | | Concentration | | | | + + + + + | Weight | 68 kg (150 lb) | 06/19/2013 9:07 PM | | | | | PDT | | + + + + + | Height | 157.5 cm (5' 2") | 06/19/2013 9:07 PM | | | | | PDT | | + + + + + | Body Mass Index | 27.44 | 06/19/2013 9:07 PM | | | | | PDT | | + + + + + documented in this encounter Discharge Instructions Instructions Nestor Martinez MD - 06/19/2013Take medications as prescribed. Use your inhaler albuterol every 4 hours for the next 48 hours. Return if worsening or new concerning symptoms. AttachmentsThe following attachments cannot be sent through Care Everywhere.COPD FLARE (AMNA HAYDEN)documented in this encounter Medications at Time of [...] | | | | | order to [facility]. | | | | | + [...] | | | | send order to [facility] | | | | | | | [facility]. | | | | | | | [...] +---------+ + + | predniSONE | Take 4 tablets by | 20 | 0 | 06/20/19 | | | (DELTASONE) 10 mg | mouth Daily for 5 | tablet | | 14 | 4 | | tablet | days. | | | | | [...] [place] | | | | | | [address] | | | | | | | | +--------+---------+ + + + | 11/24/ | Office | Cardiology | [place], | | | 2019 | Visit | | SINDHU Erickson [address] | | | | | | [place], | | | | | | [place] [address] | | | | | | [phone] | | | | | | | | +--------+---------+ + + + documented as of this encounter Visit Diagnoses + + | Diagnosis | + + | COPD with acute exacerbation (HCC) - Primary Obstructive chronic bronchitis with | | exacerbation | + + documented in this encounter Administered Medications + +--------+ +-------+------+------+ | Medication Order | MAR | Action | Dose | Rate | Site | | | Action | Date | | | | + +--------+ +-------+------+------+ | albuterol-ipratropium (DUONEB) | Given | 06/20/19 | 3 mLs | | | | 2.5-0.5 mg/3 mL nebulizer | | 14 9:22 | | | | | solution 3 mL 3 mL, | | PM PDT | | | | | Nebulization, RT Once, Sat | | | | | | | 06/19/13 at 2145, For 1 dose, RT | | | | | | | will administer., | | | | | | + +--------+ +-------+------+------+ +---+---+ | | | +---+---+ + +-------+ +-------+---+---+ | predniSONE (DELTASONE) tablet | Given | 06/20/19 | 40 mg | | | | 40 mg 40 mg, Oral, ONCE, Sat | | 14 9:36 | | | | | 06/19/13 at 2145, For 1 dose | | PM PDT | | | | + +-------+ +-------+---+---+ +---+---+ | | | +---+---+ documented in this encounter
--- OUTSIDE RECORDS SUMMARY | ~2019-02-28 | XMS | Encounter Summary ---
Demographics + + + | Address | [address] | | | [place] [address] | + + + | Home Phone [...] Team Providers + +------+ + | Care Golf Club Maker Name | Role | Phone | + +------+ + | Juan Cherry DO | PCP | | + +------+ + Encounter Details +--------+ + + + + | Date | Type | Department | Care Team | Description | +--------+ + + + + | 02/22/ | Hospital | [facility] | Ozzie Hayes | | | 2011 | Encounter | MED CTR EMERGENCY | MD Ran [address] | | | | | [place] [address] | [facility] | | | | | [place], [place] | [place] [address] | | | | | [address] | [phone] | | | | | [phone] | | | +--------+ + + + [...] | | | | | | [place] [address] | | | | | | [phone] | | | | | | | | +--------+---------+ + + + documented as of this encounter Procedures + +--------+ + + + | Procedure Name | Priori | Date/Time | Associated Diagnosis | Comments | | | ty | | | | + +--------+ + + + | CT ABDOMEN PELVIS W | Routin | 02/23/2012 | | Results for this | | CONTRAST | e | 12:00 PM | | procedure are in the | | | | PST | | results section. | + +--------+ + + + | URINALYSIS, REFLEX | Routin | 02/23/2012 | | Results for this | | MICROSCOPIC AND/OR | e | 6:12 AM | | procedure are in the | | CULTURE | | PST | | results section. | + +--------+ + + + | CBC WITH | Routin | 02/23/2012 | | Results for this | | DIFFERENTIAL | e | 5:55 AM | | procedure are in the | | | | PST | | results section. | + +--------+ + + + | LIPASE | Routin | 02/23/2012 | | Results for this | | | e | 5:55 AM | | procedure are in the | | | | PST | | results section. | + +--------+ + + + | ALCOHOL | Routin | 02/23/2012 | | Results for this | | | e | 5:55 AM | | procedure are in the | | | | PST | | results section. | + +--------+ + + + | COMPREHENSIVE | Routin | 02/23/2012 | | Results for this | | METABOLIC PANEL | e | 5:55 AM | | procedure are in the | | | | PST | | results section. | + +--------+ + + + documented in this encounter Results CT Abdomen Pelvis w Contrast (02/23/2012 12:00 PM PST) + + | Specimen | + + | | + + + + + | Narrative | Performed At | + + + | [facility] | [facility] | | Department [address] [place] [address] | [facility] | | [ rep ct street[address]] [ rep ct [facility] | | st zip] Signed | - IMAGING | | | | | Patient Name: THEOPANFILOJADYN W | | | Physician: CHEVY : [id number] Age: 47 Sex: F Unit | | | #: [id number] Exam Date: 02/23/12 Location: | | | ER Report #: [id number] Page: | | | %(RAD)RES..mtdd.print.filter("pg") of %(RAD) | | | RES..mtdd.print.filter("tpg") | | | | | | Accession Number: [id number] | | | ENHANCED CT ABDOMEN AND PELVIS, 02/23/2012 @ 0654 HOURS | | | CLINICAL HISTORY: LEFT LOWER QUADRANT PAIN. | | | COMPARISON: CT abdomen and pelvis 09/23/2010 and multiple previous | | | CTs. TECHNIQUE: Axial images are performed through | | | the abdomen and pelvis following the uneventful intravenous | | | administration of 80 mL Isovue-370 contrast. Coronal and sagittal | | | reformations are also performed. ABDOMEN FINDINGS: | | | Mild dependent density in the imaged right lung base and band-like | | | opacity in the nondependent left lung base favors atelectasis/scar. | | | Imaged mediastinum is unremarkable. Surgical clips persist at | | | the level of the gastroesophageal junction. The liver appears | | | enlarged, with the right hepatic lobe now extending beyond the | | | margin of the iliac crest. No focal hepatic parenchymal | | | abnormality is evident. The spleen, pancreas, and adrenal glands are | | | unremarkable. There is generalized enhancement of the gallbladder | | | wall, which is fairly thin in appearance. There is no adjacent | | | stranding, visible calcified gallstone, or biliary ductal dilation. | | | Few tiny low-attenuation cysts are again visible within the | | | kidneys. The kidneys are otherwise unremarkable, without visible | | | renal or ureteral calculus or hydronephrosis. There is extensive | | | descending and sigmoid colonic diverticulosis, without convincing | | | evidence of diverticulitis. Moderate right colonic stool retention | | | is present and there is layering bubbly fluid/stool within the cecum, | | | which is positioned in the upper pelvic cavity. There is no | | | evidence of bowel obstruction. The appendix appears to be absent. | | | No free air, free fluid, pathologic lymph node enlargement, or | | | hernia is evident. There is rightward lumbar curvature. A small, | | | rounded lucent lesion in the left aspect of the L4 vertebral body | | | demonstrates internal trabecular coarsening and is stable, consistent | | | with a benign hemangioma. Bones and soft tissues are otherwise | | | unremarkable. PELVIS FINDINGS: The uterus is absent. | | | Ovaries are not visualized with confidence. The bladder is | | | unremarkable. No free air, free fluid, pathologic lymph node | | | enlargement, or hernia is evident. Numerous rounded calcifications | | | in the pelvic cavity are stable and consistent with phleboliths. | | | Bones and soft tissues are unremarkable. IMPRESSION: | | | 1. EXTENSIVE COLONIC DIVERTICULOSIS AND MODERATE RIGHT COLONIC | | | STOOL RETENTION, WITHOUT EVIDENCE OF DIVERTICULITIS OR BOWEL | | | OBSTRUCTION. PROMINENT LAYERING BUBBLY FLUID/STOOL IS NOTED WITHIN | | | THE CECUM, WHICH IS POSITIONED IN THE UPPER PELVIC CAVITY. | | | APPENDIX APPEARS TO BE ABSENT. 2. GALLBLADDER WALL | | | ENHANCEMENT, WITHOUT EVIDENT CALCIFIED GALLSTONE, PERICHOLECYSTIC | | | STRANDING OR BILIARY DUCTAL DILATION. CONSIDER FOLLOWUP SONOGRAPHY | | | INDICATED. 3. HEPATOMEGALY. 4. | | | RIGHTWARD LUMBAR CURVATURE. COMMENT: Preliminary | | | results of this study were communicated to the ER staff by the | | | [facility] radiologist on 02/23/2012 at 0741 hours. | | | Dictated Date/Time: 02/23/2012 12:00 Transcribed Date/Time: | | | 02/23/2012 12:15 Appliance Line Assembler: | | | <<Signature on File>> | | | Aditya Alonso | | | MD Claudio02/23/12 [id number] <Electronically signed by Aditya Snyder MD> | | | Aditya Snyder MD 02/23/12 1200 Appliance Line Assembler: | | | TherMarkmedx Gexarfqquybha03/30/12 1215 Ozzie Hayes MD | | | | | + + + + + + + + | Performing | Address | City/State/Zipcode | Phone Number | | Organization | | | | + + + + + | [facility] | [address] | [place] | [phone] | | [facility] | | [address] | | | - IMAGING | | | | + + + + + Urinalysis, Reflex Microscopic and/or Culture (02/23/2012 6:12 AM PST) + + + + + + | Component | Value | Ref Range | Performed | Pathologist | | | | | At | Signature | + + + + + + | COLLECTION | VOID | | [facility] | | | [facility] | | [facility] | | | | | | [facility] | | | | | | CENTER - | | | | | | LABORATORY | | + + + + + + | Color | YELLOW | | [facility] | | | | | | [facility] | | | | | | MEDICAL | | | | | | CENTER - | | | | | | LABORATORY | | + + + + + + | Clarity | CLEAR | | [facility] | | | | | | [facility] | | | | | | [facility]ICAL | | | | | | CENTER - | | | | | | LABORATORY | | + + + + + + | Glucose, | NEGATIVE | NEGATIVE mg/dL | [facility] | | | Urine | | | [facility] | | | | | | MEDICAL | | | | | | CENTER - | | | | | | LABORATORY | | + + + + + + | Bilirubin, | NEGATIVE | NEGATIVE | [facility] | | | Urine | | | [facility] | | | | | | MEDICAL | | | | | | CENTER - | | | | | | LABORATORY | | + + + + + + | Ketones, | NEGATIVE | NEGATIVE | [facility] | | | Urine | | | [facility] | | | | | | MEDICAL | | | | | | CENTER - | | | | | | LABORATORY | | + + + + + + | Specific | <1.005 | 1.001 - 1.030 | [facility] | | | [place] | | | [facility] | | | | | | MEDICAL | | | | | | CENTER - | | | | | | LABORATORY | | + + + + + + | Blood, | SMALL | NEGATIVE | [facility] | | | Urine | | | [facility] | | | | | | MEDICAL | | | | | | CENTER - | | | | | | LABORATORY | | + + + + + + | pH, Urine | 5.5 | 5.0 - 8.0 | [facility] | | | | | | [facility] | | | | | | MEDICAL | | | | | | CENTER - | | | | | | LABORATORY | | + + + + + + | Protein, | NEGATIVE | NEGATIVE mg/dL | [facility] | | | Urine | | | [facility] | | | | | | MEDICAL | | | | | | CENTER - | | | | | | LABORATORY | | + + + + + + | Urobilinoge | NORMAL | NORMAL EU/dL | [facility] | | | n, Urine | | | [facility] | | | | | | MEDICAL | | | | | | CENTER - | | | | | | LABORATORY | | + + + + + + | Nitrite, | NEGATIVE | NEGATIVE | [facility] | | | Urine | | | [facility] | | | | | | MEDICAL | | | | | | CENTER - | | | | | | LABORATORY | | + + + + + + | Leukocyte | TRACE | NEGATIVE | [facility] | | | Esterase, | | | [facility] | | | Urine | | | MEDICAL | | | | | | CENTER - | | | | | | LABORATORY | | + + + + + + | WBC UA | 2-4 | 0 - 1 /hpf | [facility] | | | | | | [facility] | | | | | | MEDICAL | | | | | | CENTER - | | | | | | LABORATORY | | + + + + + + | RBC UA | 0-2 | 0 - 4 /hpf | [facility] | | | | | | [facility] | | | | | | MEDICAL | | | | | | CENTER - | | | | | | LABORATORY | | + + + + + + | SQUAMOUS | NONE | FEW /hps | [facility] | | | EPITHELIAL | | | [facility] | | | UA | | | MEDICAL | | | | | | CENTER - | | | | | | LABORATORY | | + + + + + + | BACTERIA UA | NONE | NONE /hpf | [facility] | | | | | | [facility] | | | | | | MEDICAL | | | | | | CENTER - | | | | | | LABORATORY | | + + + + + + | Culture | NO | | [facility] | | | Indicated | | | [facility] | | [...] + | [facility] | [address] | [place] | [phone] | | [facility] | | [address] | | | - LABORATORY | | | | + + + + + | [facility] | [address] | [place] | | | [facility] | | [address] | | | - LABORATORY | | | | + + + + + CBC with Differential (02/23/2012 5:55 AM PST) + +-------+ + + + | Component | Value | Ref Range | Performed | Pathologist | | | | | At | Signature | + +-------+ + + + | MANUAL | NO | | [facility] | | | DIFFERENTIA | | | [facility] | | | L ? | | | MEDICAL | | | | | | CENTER - | | | | | | LABORATORY | | + +-------+ + + + | WBC | 9.4 | 4.0 - 11.0 K/uL | [facility] | | | | | | [facility] | | | | | | MEDICAL | | | | | | CENTER - | | | | | | LABORATORY | | + +-------+ + + + | RBC | 4.53 | 3.70 - 5.20 | [facility] | | | | | M/uL | [facility] | | | | | | MEDICAL | | | | | | CENTER - | | | | | | LABORATORY | | + +-------+ + + + | Hemoglobin | 14.4 | 11.5 - 16.0 | [facility] | | | | | gm/dL | [facility] | | | | | | MEDICAL | | | | | | CENTER - | | | | | | LABORATORY | | + +-------+ + + + | Hematocrit | 41.7 | 34.0 - 47.0 % | [facility] | | | | | | [facility] | | | | | | MEDICAL | | | | | | CENTER - | | | | | | LABORATORY | | + +-------+ + + + | MCV | 92.0 | 83.0 - 101.0 fL | [facility] | | | | | | [facility] | | | | | | MEDICAL | | | | | | CENTER - | | | | | | LABORATORY | | + +-------+ + + + | MCH | 31.8 | 28.0 - 35.0 pg | [facility] | | | | | | [facility] | | | | | | MEDICAL | | | | | | CENTER - | | | | | | LABORATORY | | + +-------+ + + + | MCHC | 34.6 | 32.0 - 36.0 | [facility] | | | | | g/dL | [facility] | | | | | | MEDICAL | | | | | | CENTER - | | | | | | LABORATORY | | + +-------+ + + + | RDW-CV | 13.4 | <15.0 % | [facility] | | | | | | [facility] | | | | | | MEDICAL | | | | | | CENTER - | | | | | | LABORATORY | | + +-------+ + + + | Platelet | 278 | 140 - 440 K/uL | [facility] | | | Count | | | [facility] | | | | | | MEDICAL | | | | | | CENTER - | | | | | | LABORATORY | | + +-------+ + + + | % | 54.3 | 45 - 75 % | [facility] | | | Neutrophils | | | [facility] | | | | | | MEDICAL | | | | | | CENTER - | | | | | | LABORATORY | | + +-------+ + + + | % | 33.5 | 20 - 45 % | [facility] | | | Lymphocytes | | | [facility] | | | | | | MEDICAL | | | | | | CENTER - | | | | | | LABORATORY | | + +-------+ + + + | % Monocytes | 8.0 | 4 - 12 % | [facility] | | | | | | [facility] | | | | | | MEDICAL | | | | | | CENTER - | | | | | | LABORATORY | | + +-------+ + + + | % | 3.5 | 0 - 5 % | [facility] | | | Eosinophils | | | [facility] | | | | | | MEDICAL | | | | | | CENTER - | | | | | | LABORATORY | | + +-------+ + + + | % Basophils | 0.7 | 0 - 1 % | [facility] | | | | | | [facility] | | | | | | MEDICAL | | | | | | CENTER - | | | | | | LABORATORY | | + +-------+ + + + | Absolute | 5.1 | 1.5 - 6.6 K/uL | [facility] | | | Neutrophils | | | [facility] | | | | | | MEDICAL | | | | | | CENTER - | | | | | | LABORATORY | | + +-------+ + + + | Absolute | 3.1 | 0.6 - 3.2 K/uL | [facility] | | | Lymphocytes | | | [facility] | | | | | | MEDICAL | | | | | | CENTER - | | | | | | LABORATORY | | + +-------+ + + + | Absolute | 0.7 | 0.0 - 1.0 K/uL | [facility] | | | Monocytes | | | [facility] | | | | | | MEDICAL | | | | | | CENTER - | | | | | | LABORATORY | | + +-------+ + + + | Absolute | 0.3 | 0.0 - 0.4 K/uL | [facility] | | | Eosinophils | | | [facility] | | | | | | MEDICAL | | | | | | CENTER - | | | | | | LABORATORY | | + +-------+ + + + | Absolute | 0.1 | 0.0 - 0.1 K/uL | [facility] | | | Basophils | | | [...] + | [facility] | [address] | [place] | [phone] | | [facility] | | [address] | | | - LABORATORY | | | | + + + + + | [facility] | [address] | [place], [place] | | | [facility] | | [address] | | | - LABORATORY | | | | + + + + + Comprehensive Metabolic Panel (02/23/2012 5:55 AM PST) + + + + + + | Component | Value | Ref Range | Performed | Pathologist | | | | | At | Signature | + + + + + + | Glucose | 84 | 70 - 109 mg/dL | [facility] | | | | | | [facility] | | | | | | MEDICAL | | | | | | CENTER - | | | | | | LABORATORY | | + + + + + + | Calcium | 8.9 | 8.3 - 10.5 | [facility] | | | | | mg/dL | [facility] | | | | | | MEDICAL | | | | | | CENTER - | | | | | | LABORATORY | | + + + + + + | Alkaline | 79 | 40 - 110 IU/L | [facility] | | | Phosphatase | | | [facility] | | | | | | MEDICAL | | | | | | CENTER - | | | | | | LABORATORY | | + + + + + + | AST | 20 | 10 - 42 IU/L | [facility] | | | | | | [facility] | | | | | | MEDICAL | | | | | | CENTER - | | | | | | LABORATORY | | + + + + + + | ALT | 15 | 6 - 45 IU/L | [facility] | | | | | | [facility] | | | | | | MEDICAL | | | | | | CENTER - | | | | | | LABORATORY | | + + + + + + | Bilirubin | 0.6 | 0.2 - 1.0 mg/dL | [facility] | | | Total | | | [facility] | | | | | | MEDICAL | | | | | | CENTER - | | | | | | LABORATORY | | + + + + + + | Total | 5.9 (L) | 6.0 - 7.8 gm/dL | [facility] | | | Protein | | | [facility] | | | | | | MEDICAL | | | | | | CENTER - | | | | | | LABORATORY | | + + + + + + | Albumin | 3.7 | 3.2 - 5.0 gm/dL | [facility] [...] + + + + | Creatinine | 0.76 | 0.60 - 1.30 | [facility] | | | | | mg/dL | [facility] | | | | | | MEDICAL | | | | | | CENTER - | | | | | | LABORATORY | | + + + + + + | Estimated | >60Comment: For | >60 mL/min/A | [facility] | | | GFR | -Americans, | [...] + + + + | BUN/Creatin | 15.8 | 12 - 20 | [facility] | | | ine Ratio | | | [facility] | | | | | | MEDICAL | | | | | | CENTER - | | | | | | LABORATORY | | + + + + + + | Na | 136 | 136 - 149 mEq/L | [facility] | | | | | | [facility] | | | | | | MEDICAL | | | | | | CENTER - | | | | | | LABORATORY | | + + + + + + | K | 3.8 | 3.5 - 5.1 mEq/l | [facility] | | | | | | [facility] | | | | | | MEDICAL | | | | | | CENTER - | | | | | | LABORATORY | | + + + + + + | Cl | 104 | 98 - 109 mEq/l | [facility] | | | | | | [facility] | | | | | | MEDICAL | | | | | | CENTER - | | | | | | LABORATORY | | + + + + + + | CO2 | 24 | 24 - 31 mEq/L | [facility] | | | | | | [facility] | | | | | | MEDICAL | | | | | | CENTER - | | | | | | LABORATORY | | + + + + + + | Anion Gap | 11.8 | 6.0 - 17.0 | [facility] | [...] + | [facility] | [address] | [place], [place] | [phone] | | [facility] | | [address] | | | - LABORATORY | | | | + + + + + | [facility] | [address] | [place], [place] | | | [facility] | | [address] | | | - LABORATORY | | | | + + + + + Ethanol (02/23/2012 5:55 AM PST) + +-------+ + + + | Component | Value | Ref Range | Performed | Pathologist | | | | | At | Signature | + +-------+ + + + | ALCOHOL, | <5 | mg/dL | [facility] | | | SERUM/PLASM | | | [facility] | | | A | | | MEDICAL | | | [...] + | [facility] | [address] | [place] | [phone] | | [facility] | | [address] | | | - LABORATORY | | | | + + + + + | [facility] | [address] | [place], [place] | | | [facility] | | [address] | | | - LABORATORY | | | | + + + + + Lipase (02/23/2012 5:55 AM PST) + +-------+ + + + | Component | Value | Ref Range | Performed | Pathologist | | | | | At | Signature | + +-------+ + + + | Lipase | 22 | 0 - 60 U/L | [facility] | | | | | [facility] [...] + | [facility] | [address] | [place], [place] | [phone] | | [facility] | | [address] | | | - LABORATORY | | | | + + + + + | [facility] | [address] | [place], [place] | | | [facility] | | [address] | | | - LABORATORY | | | | + + + + + documented in this encounter Visit Diagnoses Not on filedocumented in this encounter
--- OUTSIDE RECORDS SUMMARY | ~2019-02-28 | XMS | Encounter Summary ---
Demographics + + + | Address | [address] | | | [place] [address] | + + + | Home Phone [...] Team Providers + +------+ + | Care Seed Core Operator Name | Role | Phone | [...] + + | Closed | Specialty | Urology | Diagnoses | Weber, | Weber, | | | Services | | | Gene | Gene Robert, | | | Required | | Interstitial | MD Robert | [address] | | | | | cystitis | [address] | | | | | | ST [place] | [place], | | | | | | [place], [place] | [place] [address] | | | | | | [address] | Phone: | | | | | | Phone: | [phone] | | | | | | [phone] | Fax: | | | | | | Fax: | [phone] | | | | | | [phone] | | +--------+ + + + + + Encounter Details +--------+ + + + + | Date | Type | Department | Care Team | Description | +--------+ + + + + | 09/19/ | Orders Only | [facility] | Andriy Weber | Interstitial | | 2016 | | [address] | MD Robert [address] | cystitis (Primary | | | | [place], [place] | [address] [place] | Dx) | | | | [address] | [place] [address] | | | | | [phone] | [phone] | | | | | | | [...] [place] | | | | | | [address] | | | | | | | | +--------+---------+ + + + | 11/24/ | Office | Cardiology | [place], | | | 2020 | Visit | | SINDHU Erickson [address] | | | | | | [place], | | | | | | [place] [address] | | | | | | [phone] | | | | | | | | +--------+---------+ + + + + + +--------+ + + | Name | Type | Priori | Associated Diagnoses | Order Schedule | | | | ty | | | + + +--------+ + + | Ambulatory referral | Outpatient | Routin | Interstitial | Expected: | | to Urology | Referral | e | cystitis | 11/22/2015, Expires: | | | | | | 11/21/2016 | + + +--------+ + + documented as of this encounter Visit Diagnoses + + | Diagnosis | + + | Interstitial cystitis - Primary Chronic interstitial cystitis | + + documented in this encounter"
--- OUTSIDE RECORDS SUMMARY | ~2019-02-28 | XMS | Encounter Summary ---
Demographics + + + | Address | [address] | | | [place] [address] | + + + | Home Phone [...] Team Providers + +------+ + | Care Remote Control Mirror Installer Name | Role | Phone | + +------+ + PCP | Unavailable | + +------+ + Encounter Details +--------+ + + + + | Date | Type | Department | Care Team | Description | +--------+ + + + + | 01/23/ | Hospital | [facility] | Ozzy Delcid, | | | 2009 | Encounter | MED CTR XRAY [address] | [address] | | | | | [place] | [place], [place] | | | | | [place] [address] | [address] | | | | | [phone] | | | +--------+ + + + [...] [place] | | | | | | [address] | | | | | | | | +--------+---------+ + + + | 11/24/ | Office | Cardiology | [place], | | | 2019 | Visit | | SINDHU Erickson [address] | | | | | | [place], | | | | | | [place] [address] | | | | | | [phone] | | | | | | | | +--------+---------+ + + + documented as of this encounter Visit Diagnoses Not on filedocumented in this encounter"
--- OUTSIDE RECORDS SUMMARY | ~2019-02-28 | XMS | Encounter Summary ---
Demographics + + + | Address | [address] | | | [place] [address] | + + + | Home Phone | | + + + | Preferred Language | Unknown | + + + | Marital Status | Single | + + + | Pentecostalism Affiliation | 1041 | + + + [...] Team Providers + +------+ + | Care Coating Machine Operator Helper Name | Role | Phone | + +------+ + | Juan Cherry DO | PCP | | + +------+ + Reason for Visit + + + | Reason | Comments | + + + | Referral | | + + + Encounter Details +--------+ + + + + | Date | Type | Department | Care Team | Description | +--------+ + + + + | 10/05/ | Telephone | [facility] | Sharonda Delmycaitie, | Referral | | 2013 | | CARDIOLOGY [address] | [address] | | | | | [place], | [place], | | | | | [place] [address] | [place] [address] | | | | | [phone] | [phone] | | | | | | | [...] | | | | | | [place] [address] | | | | | | [phone] | | | | | | | | +--------+---------+ + + + documented as of this encounter Visit Diagnoses Not on filedocumented in this encounter"
--- OUTSIDE RECORDS SUMMARY | ~2019-02-28 | XMS | Encounter Summary ---
Demographics + + + | Address | [address] | | | [place] [address] | + + + | Home Phone [...] + +------+ + | Care Director Of Women'S Services Name | Role | Phone | + +------+ + PCP | Unavailable | + +------+ + Encounter Details +--------+ + + + + | Date | Type | Department | Care Team | Description | +--------+ + + + + | 08/09/ | Hospital | [facility] | [place], | | | 2009 | Encounter | MED CTR EMERGENCY | Ozzy Kim MD [address] | | | | | [place] [address] | [facility] | | | | | [place], [place] | [place] [address] | | | | | [address] | [phone] | | | | | [phone] | | | +--------+ + + + [...] [place] | | | | | | [id number] | | | | | | | | +--------+---------+ + + + | 11/24/ | Office | Cardiology | [place], | | | 2019 | Visit | | SINDHU Erickson [address] | | | | | | [place] | | | | | | [place] [address] | | | | | | [phone] | | | | | | | | +--------+---------+ + + + documented as of this encounter Visit Diagnoses Not on filedocumented in this encounter"
--- OUTSIDE RECORDS SUMMARY | ~2019-02-28 | XMS | Encounter Summary ---
Demographics + + + | Address | [address] | | | [place] [address] | + + + | Home Phone | | + + + | Preferred Language | Unknown | + + + | Marital Status | Single | + + + | [employer] Affiliation | 1041 | + + + [...] Team Providers + +------+ + | Care Digital Retoucher Name | Role | Phone | + +------+ + | Juan Cherry DO | PCP | | + +------+ + Encounter Details +--------+ + + + + | Date | Type | Department | Care Team | Description | +--------+ + + + + | 04/02/ | Hospital | [facility] | Dio Yun | | | 2017 | Encounter | [facility] | MD [address] | | | | | MEDICINE [address] | [address] | | | | | [place], | [place], [place] | | | | | [place] [address] | [address] | | | | | [phone] | [phone] | | | | | | | [...] | | | | | order to [facility]. | | | | | [...] | | send order to [facility] | | | | | | | [facility]. | | | | | | | [...] | | | | | | | ([facility]) | | | | | | + [...] | 0 | 10/13/19 | | | [id number] | mouth as needed. | | | 16 | 7 | | -Cod [id number] MG | | | | | | [...] | | | | | | | ([facility]) | | | | | | + [...] | | | | | | [place] [address] | | | | | | [phone] | | | | | | | [...] + + | Performing | Address | City/State[facility] | Phone Number | | Organization | | | | + +---------+ + + | [facility] | | | | + +---------+ + + documented in this encounter Visit Diagnoses Not on filedocumented in this encounter
--- OUTSIDE RECORDS SUMMARY | ~2019-02-28 | XMS | Encounter Summary ---
Demographics + + + | Address | [address] | | | [place] [address] | + + + | Home Phone [...] Team Providers + +------+ + | Care Rope Silica Machine Operator Name | Role | Phone [...] Description | +--------+---------+ + + + | 06/23/ | Office | [facility] | Shashi Segovia | Other migraine | | 2015 | Visit | NEUROLOGY [place] | MD Miryam Need updated | without status | | | | [address] [facility], | address | migrainosus, not | | | | [address] [place] | | intractable (Primary | | | | [place] [address] | | Dx); Pituitary | | | | [phone] | | adenoma (HCC); GARRY | | | | | | on CPAP | +--------+---------+ + + + Social History [...] + + + | Blood Pressure | 93/57 | 06/23/2014 8:22 AM | | | | | PDT | | + + + + + | Pulse | 89 | 06/23/2014 8:22 AM | | | | | PDT | | + + + + + | Temperature | - | - | | + + + + + | Respiratory Rate | 16 | 06/23/2014 8:22 AM | | | | | PDT | | + + + + + | Oxygen Saturation | - | - | | + + + + + | Inhaled Oxygen | - | - | | | Concentration | | | | + + + + + | Weight | 75.3 kg (166 lb) | 06/23/2014 8:22 AM | | | | | PDT | | + + + + + | Height | 157.5 cm (5' 2") | 06/23/2014 8:22 AM | | | | | PDT | | + + + + + | Body Mass Index | 30.36 | 06/23/2014 8:22 AM | | | | | PDT [...] Instructions Patient Instructions Shashi Segovia MD - 06/23/2014 8:49 AM PDT1) Call if increased pressure range on CPAP is bothersome 2) Keep going with Maxalt, if using more than 2-3 times per week, we need to add a daily me dication 3) Follow up with endocrine 4) Follow up as needed Sleep Apnea[Adult] Sleep Apnea (also called Obstructive Sleep Apnea ) is a condition where there are kulwinder g pauses between breaths during sleep. This [...] pauses than usual Unable to awaken Seizure [id number] [employer]. [address] [place] [id number]. All righ ts reserved. This information is not intended as a substitute for professional medical care. Always follow your healthcare professional's instructions. documented in this encounter Progress Notes Shashi Segovia MD - 06/23/2014 8:20 AM PDTFormatting of this note might be differen t from the original. Shashi Segovia MD [address] [place] [address], [address] [place] [address] Neurology Outpatient ProgressNote Patient ID: Ms. Malik is a 49 y.o. female with a pertinent history of COPD, depression, COPD, GARRY on PAP, hypothyroidism, possible adrenal insufficiency, and pituitary lesion, following up in n eurology clinic for increased headache frequency. Interval History: Since last visit, Ms. Malik underwent an MRI of her brain that showed stability in the tin y (1mm) signal change within her pituitary. She recently saw an registration specialist who noted he r visual acuity changed, but she did not have any deficits on visual rosado. Ms. Malik has continued to have around 2 headaches per week that are well controlled with Maxalt. She kaylee ot afford using Butterbur as a supplement. Ms. Malik finds that many of her headaches seem to start with waking. Ms. Malik has been struggling more with daytime sleepiness. She origi michael had a robust response to CPAP when she started using it. Since that time she has notic ed a return to falling asleep during movies and dragging all day. She is currently on a fixe d pressure of 9 cwp. She underwent a repeat CPAP titration in 03/10. The adjustment to 9 cwp has not provided any additional relief. Ms. Malik has an upcoming appointment with endocrin ology at [facility]. Past Medical History: Past Medical History Diagnosis Date Hypothyroidism Diverticulitis past Depression Anxiety GERD (gastroesophageal reflux disease) COPD (chronic obstructive pulmonary disease) ([facility]) 2011 post BD FEV1 2.34, [...] duct (pouch) (HCC) 10/28/2012 Overview: Managed by [facility] along with hypothyroidism Osteoarthritis Tachycardia Asthma Emphysema Migraine Migraines Current Medications: Outpatient Medications albuterol (PROAIR HFA) 90 mcg/puff inhaler [...] order as appropriate) Diagnosis Code(s)327.23 . Hong h of Need 99 months. Please send order to [facility]. Respiratory Therapy Supplies MISC (Taking) Change CPAP back to 11-14 cm H2O. All necessar y supplies. No oxygen bleed in. Diagnosis Code(s)327.23. Length of Need: Lifetime. Please se nd order to [facility]. This is not a new order, [...] nkle swelling. LUNG DISEASE: + shortness of breath,no cough, no tuberculosis, no bloody cough, + asthma, + emphysema/COPD. Examination: BP 93/57 | Pulse 89 | Resp 16 | Ht 1.575 m (5' 2") | Wt 75.297 kg (166 lb) | BMI 30.35 kg/m 2 General: well developed and well nourished HEENT: [...] to nose intact Gait: normal. Radiographic Review: UNENHANCED AND ENHANCED MRI OF THE BRAIN: 06/02/2014 8:54 AM CLINICAL HISTORY: pituitary adenoma COMPARISON: 2009 and 2010 TECHNIQUE: Multiplanar, multisequence imaging of the brain was performed in the 1.5 T MR scanner before and after the uneventful administration of 10 mL of Gadavist. Dedicated small vukzr-lj-xucu thin section imaging through the pituitary region before and after contrast. FINDINGS: Study is mildly degraded by patient motion artifact. Ventricular spaces, CSF cisterns and sulci have a normal symmetric appearance. Shaw-white differentiation is normal. No areas of abnormal white matter signal. No diffusion restriction. No defined infarct. No extra-axial fluid collections. No magnetic susceptibility artifact. No mass or mass effect. Posterior fossa contents are normal. Intracranial vasculature appears normal. Pituitary has normal size and volume. Pituitary stalk is midline and nondeviated. Pituitary enhancement is relatively uniform. As noted on prior exams, there is a tiny 1 mm hypoenhancing focus on the right side of the gland. This is seen only on a single coronal slice. It is however similar in appearance to the comparison 2010 exam. No other pituitary nodularity. No orbital abnormality. Mastoids and paranasal sinuses are normal. IMPRESSION - 1. Tiny, 1 mm focus of hypoenhancement on the right side of the pituitary. Small size obviously limits characterization and possibly clinical significance, but this is the same focus referred to on prior imaging as potential pituitary microadenoma. No change in appearance from prior. 2. Otherwise normal MRI of the brain. Dictated and Signed by: Van Ren MD Electronically signed: 06/02/2014 11:48 AM Laboratory Review: Component Value Date/Time TSH 0.36 10/09/2011 1232 Assessment: Ms. Malik is a 49 y.o. female with a history of COPD, depression, COPD, GARRY on PAP, hypoth yroidism, possible adrenal insufficiency, and pituitary lesion, following up in neurology cl inic for increased headache frequency. 1) Headaches: increased frequency, but controlled with Maxalt. Likely primary migraine head aches. 2) Pituitary lesion: pituitary hormone levels are normal, except IGF-I, which appears to ch ronically fluctuate. No new focal neurologic symptoms suggesting increase in size other than change in headache frequency. Stable MRI. 3) Hypersomnia: possibly secondary to under treatment of GARRY. Plan: 1) Migraine Headaches - Continue with Maxalt - Continue PT for craniosacral therapy 2) Pituitary Lesion: - Patient to see local endocrinology 3) Hypersomnia: - Empiric increase in pressures to 12-15 cwp, which appeared to have adequate control of e vents on recent titration study. - Patient will call if increase is difficult to tolerate. Follow up in neurology as needed. Discussed my upcoming departure from [place]. If charis valderrama has issues before August we will get her in to clinic. After this time she wishes to wait u ntil my replacement is established. Electronically signed by: Shashi Segovia MD, 06/23/2014 8:36 documented in th is encounter Plan of [...] | | | | | | [place] [address] | | | | | | [phone] | | | | | | | | +--------+---------+ + + + documented as of this encounter Visit Diagnoses + + | Diagnosis | + + | Other migraine without status migrainosus, not intractable - Primary | + + | Pituitary adenoma (HCC) Benign neoplasm of pituitary gland and craniopharyngeal duct | | (pouch) | + + | GARRY on CPAP Obstructive sleep apnea (adult) (pediatric) | + + documented in this encounter
--- OUTSIDE RECORDS SUMMARY | ~2019-02-28 | XMS | Encounter Summary ---
Demographics + + + | Address | [address] | | | [place] [address] | + + + | Home Phone [...] Team Providers + +------+ + | Care Third Cook Name | Role | Phone | + [...] Tachycardia | MD Jared | [address] | | | | | Procedures | [address] | [place], | | | | | ECHO | [address] | [place] | | | | | Complete | [place], | [address] | | | | | | [place] [address] | Phone: | | | | | | Phone: | [phone] | | | | | | [phone] | Fax: | | | | | | Fax: | [phone] | | | | | | [phone] | | +--------+--------+ + + + + [...] | | | | | Tachycardia, | [address] | [address] | | | | | unspecified | [place] | [address] | | | | | HIGH PULSE | [place], [place] | [place], | | | | | - [address]ND [address] | [address] | [place] [address] | | | | | Procedures | Phone: | Phone: | | | | | [place] OFFICE | [phone] | [phone] | | | | | OUTPATIENT | Fax: | Fax: | | | | | VISIT 25 | [phone] | [phone] | | | | | MINUTES | [...] CARDIOLOGY [address] | MD [address] | Dx) | | | | [address] [place], | [place], | | | | | [place] [address] | [place] [address] | | | | | [phone] | [phone] | | | | | | | [...] y.o. REFERRED BY: Juan Cherry PRIMARY CARE: DO BOB Guillaume PATIENT OFFICE VISIT Date of Service: 08/12/2013 HISTORY OF PRESENT ILLNESS: Rosario Malik is a 48 y.o. female with a history of emphysema, hypothyroidism. She is being seen today for follow up hypertension and tachycardia. 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 in a process to retire [...] sleep apnea COPD (chronic obstructive pulmonary disease) ([facility]) Healthcare maintenance Preventative health care GARRY (obstructive sleep apnea) Multiple personality disorder GERD (gastroesophageal reflux disease) Diverticulosis Insomnia Sprain of chest wall Benign neoplasm of pituitary gland and craniopharyngeal duct (pouch) ([facility]) Status post total hysterectomy Irritable colon Hypoxemia ([facility]) Allergic rhinitis Tachycardia MEDICAL, SURGICAL, AND PERSONAL HISTORY Past Surgical History Procedure Date Hammertoe repair right sided Hiatal hernia repair Hiatal hernia Kirk and bso Ovarian cysts, not cancer Colonoscopy 03/2010 Colonoscopy 1995 [facility] Family History Problem Relation Age of Onset [...] 1 Years of Education: 13 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 Respiratory Therapy Supplies [facility] Incentive spirometer. Please provide instructions in use. Dx: 848.8 MADELEINE: 3 months 1 each 99 Respiratory Therapy Supplies [facility] Please provide patient with necessary CPAP supplies ( she did not specify, okay to send order as appropriate) Diagnosis Code(s)327.23 . Length of Need 99 months. Please send order to [facility]. 1 each 0 Respiratory Therapy Supplies [facility] Change CPAP back to 11-14 cm H2O. All necessary suppl ies. No oxygen bleed in. Diagnosis Code(s)327.23. Length of Need: Lifetime. Please send orde r to [facility]. This is not a new [...] PLT 343 07/14/2013 I reviewed records from [facility] for office visit on 08/02/13. ASSESSMENT: [...] She is in a class II of [place] [employer] functiona l class. There is [...] made to ensure accuracy; however, inadvertent computerized gimp tacker errors may be pre sent. Electronically signed by: Jared Mcdonough MD [facility] 08/12/2013 9:31 documented in this encounter Plan of Treatment [...] [place] | | | | | | [id number] | | | | | | | | +--------+---------+ + + + | 11/24/ | Office | Cardiology | [place], | | | 2019 | Visit | | SINDHU Erickson [address] | | | | | | [address] [place], | | | | | | [place] [address] | | | | | | [phone] | | | | | | | [...]
--- OUTSIDE RECORDS SUMMARY | ~2019-02-28 | XMS | Encounter Summary ---
Demographics + + + | Address | [address] | | | [place] [address] | + + + | Home Phone [...] Team Providers + +------+ + | Care Security Guards Dispatcher Name | Role | Phone | + +------+ + PCP | Unavailable | + +------+ + Encounter Details +--------+ + + + + | Date | Type | Department | Care Team | Description | +--------+ + + + + | 04/13/ | Hospital | [facility] | Lencho Goss MD | | | 2010 | Encounter | MED CTR GENERIC OP | [address], [place] | | | | | CONV DEPT [address] [place], [place] | | | | | [address] [place], | [address] | | | | | [place] [address] | | | | | | [phone] | | | +--------+ + + + [...] [place] | | | | | | [address] | | | | | | | | +--------+---------+ + + + | 11/24/ | Office | Cardiology | [place], | | | 2019 | Visit | | SINDHU Erickson [address] | | | | | | [place], | | | | | | [place] [address] | | | | | | [phone] | | | | | | | | +--------+---------+ + + + documented as of this encounter Visit Diagnoses Not on filedocumented in this encounter"
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
--- OUTSIDE RECORDS SUMMARY | ~2019-02-28 | XMS | Encounter Summary ---
Demographics + + + | Address | [address] | | | [place] [address] | + + + | Home Phone [...] Team Providers + +------+ + | Care Instructor Hairspring Name | Role | Phone | + [...] | Specialty | Physical | Diagnoses | Smyer, | [facility] | | | Services | Therapy | | Grant Maynard MD | Pt Acute | | | Required | | Fibromyalgia | [address] | [address] | | | | | | [address] [place] | [place], | | | | | | [place], [place] | [place] | | | | | | [address] | [address] | | | | | | Phone: | Phone: | | | | | | [phone] | [phone] | | | | | | Fax: | Fax: | | | | | | [phone] | [phone] | +--------+ + + + + + Reason for Visit + + + | Reason | Comments | + + + | New Patient | Establish care | + + + Encounter Details +--------+---------+ + + + | Date | Type | Department | Care Team | Description | +--------+---------+ + + + | 03/02/ | Office | [facility] | Grant Castle, | ORGANIC INSOMNIA | | 2013 | Visit | MEDICINE GIANAGATDrew | [address] | UNSPECIFIED (Primary | | | | [address] | [place] | Dx); Primary | | | | [place] | [address] | central sleep apnea; | | | | [address] | | Tobacco user; | | | | [phone] | | Posttraumatic stress | | | [...] your behavior and peer support. Call the [facility] Quitline for more information. 253-MWRV-FWE (416-095-4179). Low-cost or free programs are offered by many hospitals, local chapters of the [place] [employer] (008-236-3534) a nd the [place] [employer] (028-644-8482). Support at home is important too. Non-smokers can help by offering praise and encouragement. If the smoker fails to quit, encourage them to try again! JVFH-HEY-VMTJEPO MEDICINES: For those who can't quit on [...] such as bupropion (Zyban, Wellbutrin), varenicline (Chantix, Mexican Hat ix), a niocotine inhaler or nasal spray. [...] smoking, visit the following links: National Cancer Sperry , Clearing the Air, Quit Smoking Today - an online tejada klet. http://www.smokefree.gov/pubs/clearing_the_air.pdf Smokefree.gov http://smokefree.gov/ QuitNet http://www.quitnet.com/ 1137-0965 Rafael NeumannDeo, [address] [place] [address]. All rights reserve d. This information is [...] to relax by reading or listening to HelloTel music. 7. Limit daytime napping to one [...] there) Anxiety, depression Several days without sleeping 1155-4121 [facility], [address] [place] [address]. All rights reserve d. This information is [...] she does wor k. 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 She [...] She has had to be admitted to [facility] and [facility] due to suicidal ideation by overdose. Sh drew did attempt suicide once, can't recall the medicine. This was in 1986 and 1988. No thoug hts of SI or HI in years. She has hypothryroidism managed by [facility]. She sees [facility] due to possible Gilbert's and possi quentin adrenal insufficiency. She has fibromyalgia treated with cymbalta and tramadol. Tried PT years ago. Can't afford [employer] membership. Patient's medications, allergies, past medical, surgical, [...] | | | | | | [place] [address] | | | | | | [phone] | | | | | | | [...]
--- OUTSIDE RECORDS SUMMARY | ~2019-02-28 | XMS | Encounter Summary ---
Demographics + + + | Address | [address] | | | [place] [address] | + + + | Home Phone [...] Team Providers + +------+ + | Care Client Services Administrator Name | Role | Phone | [...] Description | +--------+--------+ + + + | 01/05/ | Refill | [facility] [place] | [place], | Medication Refill | | 2017 | | CARDIOLOGY [address] | SINDHU Erickson [address] | | | | | [place], | [place], | | | | | [place] [id number] | [place] [id number] | | | | | [phone] | [phone] | | | | | | | [...] | | | | | | [place] [address] | | | | | | [phone] | | | | | | | | +--------+---------+ + + + documented as of this encounter Visit Diagnoses Not on filedocumented in this encounter"
--- OUTSIDE RECORDS SUMMARY | ~2019-02-28 | XMS | Encounter Summary ---
Demographics + + + | Address | [address] | | | [place] [address] | + + + | Home Phone [...] Team Providers + +------+ + | Care Data Processing Operator Name | Role | Phone | + +------+ + PCP | Unavailable | + +------+ + Encounter Details +--------+ + + + + | Date | Type | Department | Care Team | Description | +--------+ + + + + | 10/18/ | [facility] | [facility] | | | | 2008 - | Encounter | MED CTR OP REHAB | | | | | | [address] [place] | | | | 10/24/ | | [place] [address] | | | | 2008 | | [phone] | | | +--------+ + + + [...] [place] | | | | | | [address] | | | | | | | | +--------+---------+ + + + | 11/24/ | Office | Cardiology | [place], | | | 2020 | Visit | | SINDHU Erickson [address] | | | | | | [place], | | | | | | [place] [address] | | | | | | [phone] | | | | | | | | +--------+---------+ + + + documented as of this encounter Visit Diagnoses Not on filedocumented in this encounter"
--- OUTSIDE RECORDS SUMMARY | ~2019-02-28 | XMS | Encounter Summary ---
Demographics + + + | Address | [address] | | | [place] [address] | + + + | Home Phone [...] + + + | Author | [facility] | | | and [place] | + + + | Organization | [facility] | | | [...] Team Providers + +------+ + | Care Cisco Certified Internetwork Expert Name | Role | Phone | + +------+ + | Juan Cherry DO | PCP | | + +------+ + Reason for Visit +--------+ + | Reason | Comments | +--------+ + | COPD | | +--------+ + Evaluate & Treat (Routine) +--------+--------+ + + + + | Status | Reason | Specialty | Diagnoses / | Referred By | Referred To | | | | | Procedures | Contact | Contact | +--------+--------+ + + + + | Closed | | Cardiac | Diagnoses | Sharonda, | [facility] | | | | Rehabilitatio | copd | MD Jared | | | | | n | Procedures | [address] | Rehabilitatio | | | | | [facility] | [address] | [address] | | | | EXERCISE | [place], | [place] | | | | | | [place] [address] | [place], [place] | | | | | | Phone: | [address] | | | | | | [phone] | Phone: | | | | | | Fax: | [phone] | | | | | | [phone] | Fax: | | | | | | | [phone] | +--------+--------+ + + + + Encounter Details +--------+---------+ + + + | Date | Type | Department | Care Team | Description | +--------+---------+ + + + | 06/13/ | Office | [facility] | Sharonda Delmycaitie, | Chronic obstructive | | 2017 | Visit | MED CTR CARDIAC | MD [address] | pulmonary disease, | | | | REHABILITATION [address] [place], | unspecified COPD | | | | [address] [place] | [place] [address] | type (HCC) (Primary | | | | [place] [address] | [phone] | Dx) | | | | [phone] | | | +--------+---------+ + + + [...] this encounter Progress Notes Desean Chris - 06/13/2016 2:17 PM PDTMsChris Malik is a [age] year old female patient w ith history of COPD and Emphysema. Patient is a oxygen depend @ 2.5 to 3 lpm, patient states that she does not have to wear oxygen at nighttime. Patient states she wears a bipap at nig httime. Patient states that she had a recent fall that resulted in a broken nose and concuss ion, and has a fear of falling again. Has a doctor appointment to see if she qualifies for lm morales. Patient states that she was a smoker for 30 plus years, and quit in 2014. Exercise: Patient rode the recumbent elliptical for 30 minutes these days at levels 1 and 2 . Is using 37.5 lbs on the Cybex weight machines at 10 repetitions per machine. Has mentione d on numerous occasions that she has noticed an increase in vigor and being able to do more even though she does worry about falling. Beginning working on balance. Nutrition: Rate your Plate score: 3 Patient states that she is not eating, states that she lays in bed and drinks sweet tea all day long. Education: Received 1:1 education regarding also received Krames: Living well w/chronic Cyndee g Disease book. Through conversation, patient appeared to have good comprehension. Psycho/Social: PHQ: Score: 24. under care of physician with history of bipolar Plan: Attend pulmonary rehab 2 days per week as part of the supervised maintenance program and gradually increase walking @ home to 30 minutes daily. Extra emotional support.Bisi lacey signed by Desean Chris at 06/13/2016 4:12 PM PDTdocumented in this encounter Plan of Treatment +--------+---------+ + + + | Date | Type | Specialty | Care Team | Description | +--------+---------+ + + + | 03/31/ | Office | Pulmonology | Mukul Clark MD | | | 2019 | Visit | | [address] | | | | | | [place] | | | | | | [id number] | | | | | | | | +--------+---------+ + + + | 11/24/ | Office | Cardiology | [place], | | | 2020 | Visit | | SINDHU Erickson [address] | | | | | | [place], | | | | | | [place] [address] | | | | | | [phone] | | | | | | | | +--------+---------+ + + + documented as of this encounter Visit Diagnoses + + | Diagnosis | + + | Chronic obstructive pulmonary disease, unspecified COPD type (HCC) - Primary | + + documented in this encounter"
--- OUTSIDE RECORDS SUMMARY | ~2019-02-28 | XMS | Encounter Summary ---
Demographics + + + | Address | [address] | | | [place] [address] | + + + | Home Phone [...] Team Providers + +------+ + | Care Undercoater Name | Role | Phone | + [...] Description | +--------+---------+ + + + | 12/28/ | Office | [facility] [place] | [place], | COPD exacerbation | | 2012 | Visit | PULMONARY [address] | Loreta Alonso MD | ([facility]) (Primary Dx); | | | | [place], | | GARRY (obstructive | | | | [place] [address] | | sleep apnea); | | | | [phone] | | Central sleep apnea | +--------+---------+ + + + [...] + + + | Blood Pressure | 112/68 | 12/28/2012 8:56 AM | | | | | PST | | + + + + + | Pulse | 121 | 12/28/2012 8:56 AM | | | | | PST | | + + + + + | Temperature | - | - | | + + + + + | Respiratory Rate | - | - | | + + + + + | Oxygen Saturation | 96% | 12/28/2012 8:56 AM | | | | | PST | | + + + + + | Inhaled Oxygen | - | - | | | Concentration | | | | + + + + + | Weight | 65.2 kg (143 lb 12.8 | 12/28/2012 8:56 AM | | | | oz) | PST | | + + + + + | Height | 157.5 cm (5' 2") | 12/28/2012 8:56 AM | | | | | PST | | + + + + + | Body Mass Index | 26.3 | 12/28/2012 8:56 AM | | | | | PST | | + + + + + documented in this encounter Patient Instructions Patient Instructions Loreta London MD - 12/28/2012 9:32 AM PSTStop the Combivent. No more antibiotics. Stay on Advair, Spiriva and ProAir. I will give you some nebulizers today. documented in this encounter Progress Notes Loreta London MD - 12/28/2012 9:07 AM PSTFormatting of this note might be differe nt from the original. Pulmonary Follow Up Note MD Ayaka Rasheed [facility] [address] [place], [address] HPI Rosario Malik is a 47 y.o. female patient of Juan Cherry here today for follow up of COPD. She notes that she moved back from [place] in November at some point. She had a difficult t francy while in [place], requiring hospitalization 2 times at [facility], once in September an d October. She returned, and developed symptoms of an exacerbation, and called in. We referred her to urgent care, and she went to emergency room. She was hypoxemic despite nebulizers, and so wa s admitted. She was in the hospital for two nights. Before she left for [place], she was on Advair and Combivent. She then added Ventolin/Prov entil. She then started Spiriva at her most recent hospitalization. Curently, she is on Spir aravind, Advair, Combivent, ProAir, and albuterol nebulizers. She was given levofloxacin at discharge, but it apparently reacts with her Geodon, so was n ot filled by [facility]. She is having issues getting the albuterol nebulizers from her insur anila. She was told while hospitalized that she was snoring on her snoring on her CPAP and that sh e needed another sleep study. She reports that she has been using it continuously. She was d ischarged on 12/24. She notes she has been feeling better, just really tired. She has only used her ProAir once since discharge. She has used Combivent three times since discharge. She took her last dose of prednisone today. She is still coughing, though it is non productive. It was not product wanda when she went in to the hospital. Past Medical History Past Medical History Diagnosis [...] not cancer Colonoscopy 03/2010 Colonoscopy: 1995 at [facility] Social History: History Social History Marital Status: Single Spouse Name: N/A Number of Children: 1 Years of Education: 13 Occupational History [employer] Social History Main Topics Smoking status: [...] Allergy Medications: Outpatient Encounter Prescriptions as of 12/28/2012 Medication Status Sig Dispense Refill albuterol (PROAIR HFA) 90 mcg/puff inhaler Active Inhale 2 puffs into the lungs every 6 hours as needed. albuterol 2.5 mg/3 mL nebulizer solution Active Take 3 mLs by nebulization every 6 hour s as needed for Wheezing or Shortness of Breath. 150 mL 5 albuterol-ipratropium (COMBIVENT) 103-18 mcg/puff inhaler Active Inhale 2 puffs into th e lungs 4 times daily. 3 Inhaler 3 cetirizine (ZYRTEC) 10 mg tablet Active Take 1 tablet by mouth Daily. 90 tablet 3 Cholecalciferol (VITAMIN D3) 2000 UNITS CAPS Active Take by mouth Daily. DULoxetine (CYMBALTA) 60 MG capsule Active Take one by mouth daily fluticasone-salmeterol (ADVAIR DISKUS) 500-50 mcg/puff diskus inhaler Active inhale 1 p uff by mouth twice daily gabapentin (NEURONTIN) 800 MG tablet Active Take 800 mg by mouth 3 times daily. levothyroxine (LEVOXYL) 112 mcg tablet Active Take 50 mcg by mouth Daily. Multiple Vitamins-Minerals (MULTIVITAMIN PO) Active Take by mouth Daily. predniSONE (DELTASONE) 10 mg tablet Active 4 tabs orally daily for 3 days then decrease by 1 tab every 3 days. 30 tablet 0 Respiratory Therapy Supplies MISC Active Change CPAP back to 11-14 cm H2O. All necessar y supplies. No oxygen bleed in. Diagnosis Code(s)327.23. Length of Need: Lifetime. Please se nd order to [facility]. This is not a new order, just a change in settings. 1 each 99 tiotropium (SPIRIVA) 18 mcg inhalation capsule Active Inhale 18 mcg into the lungs Spring y. traMADol (ULTRAM) 50 mg tablet Active Take 50 mg by mouth 4 times daily. ziprasidone (GEODON) 80 MG capsule Active Take 80 mg by mouth 2 times daily. Review of Systems Constitutional: Denies fever, chills, sweats, and change in weight. Sleep: Has been fatigued, and has been dozing off and on. Using her CPAP. Eyes: Has had blurry vision. She had an eye exam about 1 year ago, they cover one every tw o years. ENT: Denies earache, decreased hearing, nosebleeds. Has had nasal congestion, sore throat, hoarseness. Resp: See HPI. CV: Denies chest pain, palpitations, syncope, and peripheral edema. GI: Denies nausea, vomiting, and abdominal pain. Has had heartburn. : She has noticed that it takes her a while to urinate, but this has not changed. Objective BP 112/68 | Pulse 121 | Ht 1.575 m (5' 2") | Wt 65.227 kg (143 lb 12.8 oz) | BMI 26.30 kg/m 2 | SpO2 96% RA General Appearance: Alert, cooperative, no distress, appears stated age Head: Normocephalic, without obvious abnormality, atraumatic Eyes: PERRL, conjunctiva clear, no scleral icterus, EOM's intact Ears: Normal TM's, external auditory canals, normal acuity Nose: Nares normal, septum midline, mucosa normal Mouth: No oral lesions or exudate Neck: Supple, symmetrical, no adenopathy Lungs: No accessory muscle use, breath sounds are slightly diminished bilaterally with so me prolongation of the expiratory phase, no wheezes, crackles or rhonchi Chest Wall: No deformity Heart: Regular rate and rhythm, no murmur, rub or gallop Abdomen: Soft, non-tender, non-distended Extremities: No cyanosis, clubbing, or edema Pulses: Radial pulses 1+ and symmetric Skin: Warm and dry Lymph nodes: Cervical and supraclavicular nodes normal Data: Lucian Lopez's notes were reviewed in clinic today. ER notes were reviewed in clinic today. Chest x-ray was done on December 22, 2012 and was reviewed and interpreted in clinic today. It shows findings consistent with hyperinflation. CPAP Data: Dates: 09/29/12-12/27/12 Baseline AHI: 47.1 Machine type: ResMedS9 auto CPAP Home Health Company: [employer] CPAP Pressure: 11-14 cmH2O Median Titrated Pressure: 11.6 cmH2O 95%tile Pressure: 13.7 cmH2O Maximum Pressure: 13.9 cmH2O AHI: 2.4 events/hour Total number of days: 90 Number of days used: 80 Median daily usage: 4:27 hours Percent of days used for more than 4 hours: 48 % Median leak: 0.0 L/min Immunization History Administered Date(s) Administered INFLUENZA, >= 4YO W/PRESERVATIVE IM 12/12/2010 INFLUENZA, PRESERVATIVE FREE IM 12/13/2011, 11/27/2012 Pneumococcal (Adult) 02/24/2011 Tdap 01/22/2008 Assessment 1. COPD exacerbation - Improved. We will clean up her medications and drop the Combivent, l eaving the Spiriva and Advair with ProAir as needed. I gave her some albuterol nebulizers to use. I don't think she needs more antibiotics at this point. 2. GARRY (obstructive sleep apnea) - On CPAP and her download shows good control. Her usage i s low again. The download arrived after her appointment, so we will call with this informati on. I am not certain why they felt she was snoring in the hospital as her snore index is low . Her AHI is good, especially given her complex apnea, and where we started. Perhaps they di d not put the mask on properly. 3. Central sleep apnea - As above. Her central apneas have decreased with consistent CPAP u susi. Plan 1.Stop Combivent and continue Spiriva. 2.Continue Advair 500mcg dose. 3.Increase CPAP usage and stick to regular sleep schedule. 4. Albuterol nebulizers given today. She was advised to call if new pulmonary symptoms were to develop. Return to clinic in 1 month, or sooner with concerns. CC: Juan Cherry Portions of this report were transcribed using voice recognition software. Every effort wa s made to ensure accuracy; however, inadvertent computerized rn wellness errors may be pre sent. documented in [...] | | | | | [place], | | | | | | [place] [address] | | | | | | [phone] | | | | | | | | +--------+---------+ + + + documented as of this encounter Visit Diagnoses + + | Diagnosis | + + | COPD exacerbation (HCC) - Primary Obstructive chronic bronchitis with exacerbation | + + | GARRY (obstructive sleep apnea) Obstructive sleep apnea (adult) (pediatric) | + + | Central sleep apnea Primary central sleep apnea | + + documented in this encounter
--- OUTSIDE RECORDS SUMMARY | ~2019-02-28 | XMS | Encounter Summary ---
Demographics + + + | Address | [address] | | | [place] [address] | + + + | Home Phone [...] + + + | Author | [facility] | | | and [place] | + + + | Organization | [facility] | | [...] Team Providers + +------+ + | Care Wigs Salesperson Name | Role | Phone | + +------+ + | Juan Cherry DO | PCP | | + +------+ + Encounter Details +--------+ + + + + | Date | Type | Department | Care Team | Description | +--------+ + + + + | 08/05/ | Hospital | [facility] | Kevin Sandoval, | Chronic airway | | 2013 | Encounter | MED CTR PULMONARY | MD [address] | obstruction, not | | | | FUNCTION [address] | [place], [place] | elsewhere classified | | | | [place], | [address] | (HCC) | | | | [place] [address] | | | | | | [phone] | | | +--------+ + + + [...] | | | | | order to [facility]. | | | | | + [...] [place] | | | | | | [address] | | | | | | | | +--------+---------+ + + + | 11/24/ | Office | Cardiology | [place], | | | 2019 | Visit | | SINDHU Erickson [address] | | | | | | [place], | | | | | | [place] [address] | | | | | | [phone] | | | | | | | | +--------+---------+ + + + documented as of this encounter Procedures + +--------+ + + + | Procedure Name | Priori | Date/Time | Associated Diagnosis | Comments | | | ty | | | | + +--------+ + + + | [facility] PULMONARY | JOHNNY | 08/05/2013 | Chronic airway | | | FUNCTION TESTING | | 7:55 AM | obstruction, not | | | ORDERS | | PDT | elsewhere classified | | | | | | ([facility]) | | + +--------+ + + + documented in this encounter Visit Diagnoses + + | Diagnosis | + + | Chronic airway obstruction, not elsewhere classified | + + documented in this encounter"
--- OUTSIDE RECORDS SUMMARY | ~2019-02-28 | XMS | Encounter Summary ---
Demographics + + + | Address | [address] | | | [place] [address] | + + + | Home Phone [...] | + + +---------+ + | Vahe hKan | ECON | Unknown | | + + +---------+ + Care Team Providers + +------+ + | Care Central Lab Technician Name | Role | Phone | + +------+ + PCP | Unavailable | + +------+ + Encounter Details +--------+ + + + + | Date | Type | Department | Care Team | Description | +--------+ + + + + | 05/30/ | [facility] | [facility] | | | | 2009 - | Encounter | MED CTR OP REHAB | | | | | | [address] [place] | | | | 06/23/ | | [place] [address] | | | | 2009 | | [phone] | | | +--------+ + + + [...] [place] | | | | | | [address] | | | | | | | | +--------+---------+ + + + | 11/24/ | Office | Cardiology | [place], | | | 2020 | Visit | | SINDHU Erickson [address] | | | | | | [place], | | | | | | [place] [address] | | | | | | [phone] | | | | | | | | +--------+---------+ + + + documented as of this encounter Visit Diagnoses Not on filedocumented in this encounter"
--- OUTSIDE RECORDS SUMMARY | ~2019-02-28 | XMS | Encounter Summary ---
Demographics + + + | Address | [address] | | | [place] [address] | + + + | Home Phone [...] Team Providers + +------+ + | Care Scoreboard Operator Name | Role | Phone | [...] Closed | | Radiology | Diagnoses | [place], | [address] | | | | | Pulmonary | MD Mukul | [address] | | | | | nodule | [address] | [place], | | | | | Procedures | [address] | [place] [address] | | | | | CT Chest wo | [address] | Phone: | | | | | Contrast | [place] | [phone] | | | | | | [address] | Fax: | | | | | | Phone: | [phone] | | | | | | [phone] | | | | | | | Fax: | | | | | | | [phone] | | +--------+--------+ + + + + Reason for Visit Diagnostic/Screening (Routine) +--------+--------+ + + + + | Status | Reason | Specialty | Diagnoses / | Referred By | Referred To | | | | | Procedures | Contact | Contact | +--------+--------+ + + + + | Closed | | Radiology | Diagnoses | [place], | [address] | | | | | Pulmonary | MD Mukul | [address] | | | | | nodule | [address] | [place], | | | | | Procedures | [place] | [place] [address] | | | | | CT Chest wo | [address] | Phone: | | | | | Contrast | [place], [place] | [phone] | | | | | | [address] | Fax: | | | | | | Phone: | [phone] | | | | | | [phone] | | | | | | | Fax: | | | | | | | [phone] | | +--------+--------+ + + + + Encounter Details +--------+ + + + + | Date | Type | Department | Care Team | Description | +--------+ + + + + | 08/05/ | Hospital | [facility] | Mukul Clark MD | Pulmonary nodule | | 2018 | Encounter | MED CTR CT [address] | [address] | | | | | [address] [place], | [place], [place] | | | | | [place] [address] | [address] | | | | | [phone] | | | +--------+ + + + [...] | | | | order to [facility]. | | | | | [...] | | | | send order to [facility] | | | | | | | [facility]. | | | | | | | [...] puffs into | 1 | 5 | 01/27/20 | | | HFA) 90 mcg/puff | [...] | | (FORMERLY [facility]) | | | | | | + + + +---------+ + + | digoxin (LANOXIN) | Take 1 tablet by | 30 | 3 | 07/25/19 | | | 125 mcg tablet | mouth Daily. | tablet | | 18 | 8 [...] | | ([facility]) | | | | | | + + + +---------+ + + | | Take 1-2 tablets by | 30 | 0 | 07/30/19 | | | HYDROcodone-acetamin | mouth every 6 hours | tablet | | 18 | 8 | | ophen (NORCO) 5-325 | as needed for Pain. | | | | | | mg per tablet | | | | | | + + + +---------+ + + | hydrOXYzine | Take 1 tablet by | 90 | 3 | 07/24/19 | | | hydrochloride | mouth nightly for 90 | tablet | | 18 | 8 | | (ATARAX) 25 mg | days. | | | | | | tablet [...] | | | | | | [place] [address] | | | | | | [phone] | | | | | | | | +--------+---------+ + + + documented as of this encounter Procedures + +--------+ + + + | Procedure Name | Priori | Date/Time | Associated Diagnosis | Comments | | | ty | | | | + +--------+ + + + | CT CHEST WO CONTRAST | Routin | 08/05/2017 | Pulmonary nodule | Results for this | | | e | 2:29 PM | | procedure are in the | | | | PDT | | results section. | + +--------+ + + + documented in this encounter Results CT Chest wo Contrast (08/05/2017 2:29 PM PDT) + + | Specimen | + + | | + + + + + | Narrative | Performed At | + + + | EXAM: CT CHEST WITHOUT CONTRAST:08/05/2017 2:08 PM HISTORY: | [facility] | | Pulmonary nodule COMPARISON: Chest CT dated March 05, 2016 and | | | November 16, 2013. CT abdomen and pelvis dated September 09, 2016. | | | TECHNIQUE: Axial images are obtained from thoracic inlet to upper | | | abdomen without intravenous contrast. DOSE: DLP 234.48 mGy-cm | | | FINDINGS: Lungs: There is a 7 mm round nodule in the right upper | | | lobe (series 4, image 20) this compares to 5 mm in 2017. There is | | | a calcified granuloma with surrounding hazy soft tissue in the | | | anterior right upper lobe. This measures 3 mm. It is unchanged. | | | There are linear opacities in the right lung base that are probably | | | scarring and/or atelectasis. They are less conspicuous in February | | | 2016 and more conspicuous in October 2013. It is less nodular | | | than seen on the abdomen CT from September 09, 2016. There is scarring | | | or atelectasis in the right middle lobe. Scarring or atelectasis in | | | the lingula. Calcified granuloma in the left lower lobe. Stable 5 | | | mm oblong, noncalcified nodule in the left upper lobe (series 4, | | | image 44). There are no pleural effusions. Heart and | | | mediastinum: No aneurysmal dilatation of the thoracic aorta. No | | | cardiac chamber enlargement. Stable pericardial thickening | | | anteriorly. No mediastinal or hilar lymphadenopathy. No visible | | | thyroid pathology. Chest wall: No axillary or visible | | | supraclavicular lymphadenopathy. Upper abdomen: Postsurgical | | | changes near the gastroesophageal junction. Partially visualized | | | diverticulosis in the splenic flexure. Bones: No suspicious lytic | | | or blastic bone lesions. IMPRESSION - The area of questioned | | | nodularity in the right lower lobe is fully evaluated today linear | | | representing scarring and/or atelectasis. This area has had a | | | variable appearance and presence dating to 2013. Incidentally, | | | there is an ovoid noncalcified nodule in the right upper lobe. This | | | nodule is been present dating to 2013. However, it measures 7 mm | | | today which compares to 5 mm on the most recent comparison. | | | Recommendation: Follow-up chest CT in 3 months. Dictated and | | | Signed by: Lencho Silva MD Electronically signed: 08/05/2017 | | | 2:59 PM | | + + + + + | Procedure Note | + + | Reed, Rad Results In - 08/05/2017 3:02 PM PDT EXAM: CT CHEST WITHOUT | | CONTRAST:08/05/2017 2:08 PMHISTORY: Pulmonary noduleCOMPARISON: Chest CT dated February | | 2016 and November 16, 2013. CT abdomenand pelvis dated September 09, 2016.TECHNIQUE: | | Axial images are obtained from thoracic inlet to upper abdomenwithout intravenous | | contrast.DOSE: DLP 234.48 mGy-cm FINDINGS:Lungs: There is a 7 mm round nodule in the | | right upper lobe (series 4, image 20)this compares to 5 mm in 2017. There is a | | calcified granuloma with surroundinghazy soft tissue in the anterior right upper lobe. | | This measures 3 mm. It isunchanged. There are linear opacities in the right lung base | | that are probablyscarring and/or atelectasis. They are less conspicuous in February 2016 | | and moreconspicuous in October 2013. It is less nodular than seen on the abdomen | | CTfrom September 09, 2016. There is scarring or atelectasis in the right middle lobe. | | Scarring or atelectasis in the lingula. Calcified granuloma in the left lowerlobe. | | Stable 5 mm oblong, noncalcified nodule in the left upper lobe (series 4,image 44). | | There are no pleural effusions.Heart and mediastinum: No aneurysmal dilatation of the | | thoracic aorta. Nocardiac chamber enlargement. Stable pericardial thickening | | anteriorly. Nomediastinal or hilar lymphadenopathy. No visible thyroid pathology.Chest | | wall: No axillary or visible supraclavicular lymphadenopathy.Upper abdomen: | | Postsurgical changes near the gastroesophageal junction. Partially visualized | | diverticulosis in the splenic flexure.Bones: No suspicious lytic or blastic bone | | lesions.IMPRESSION - The area of questioned nodularity in the right lower lobe is fully | | evaluatedtoday linear representing scarring and/or atelectasis. This area has had | | avariable appearance and presence dating to 2013.Incidentally, there is an ovoid | | noncalcified nodule in the right upper lobe. This nodule is been present dating to 2013. | | However, it measures 7 mm todaywhich compares to 5 mm on the most recent | | comparison.Recommendation: Follow-up chest CT in 3 months.Dictated and Signed by: Lencho | | Rodolfo Silva MD Electronically signed: 08/05/2017 2:59 PM | |cardiac chamber enlargement. Stable pericardial thickening anteriorly. No | |mediastinal or hilar lymphadenopathy. No visible thyroid pathology. | | | |Chest wall: No axillary or visible supraclavicular lymphadenopathy. | | | |Upper abdomen: Postsurgical changes near the gastroesophageal junction. | |Partially visualized diverticulosis in the splenic flexure. | | | |Bones: No suspicious lytic or blastic bone lesions. | | | |IMPRESSION - | | | |The area of questioned nodularity in the right lower lobe is fully evaluated | |today linear representing scarring and/or atelectasis. This area has had a | |variable appearance and presence dating to 2013. | | | |Incidentally, there is an ovoid noncalcified nodule in the right upper lobe. | |This nodule is been present dating to 2013. However, it measures 7 mm today | |which compares to 5 mm on the most recent comparison. | | | |Recommendation: Follow-up chest CT in 3 months. | | | |Dictated and Signed by: Lencho Silva MD | | Electronically signed: 08/05/2017 2:59 PM | + + + +---------+ + + | Performing | Address | City[facility] | Phone Number | | Organization | | | | + +---------+ + + | [facility] | | | | + +---------+ + + documented in this encounter Visit Diagnoses + + | Diagnosis | + + | Pulmonary nodule Solitary pulmonary nodule | + + documented in this encounter"
--- OUTSIDE RECORDS SUMMARY | ~2019-02-28 | XMS | Encounter Summary ---
Demographics + + + | Address | [address] | | | [place] [address] | + + + | Home Phone [...] Team Providers + +------+ + | Care Flash Ranging Crewmember Name | Role | Phone | + [...] Description | +--------+--------+ + + + | 04/28/ | Refill | [facility] | Andriy Weber | Medication Refill | | 2018 | | [address] | MD [address] | | | | | [place] | [facility] | | | | | [address] | [place] [address] | | | | | [phone] | [phone] | | | | | | | [...] [place] | | | | | | [address] | | | | | | | | +--------+---------+ + + + | 11/24/ | Office | Cardiology | [place], | | | 2019 | Visit | | SINDHU Erickson [address] | | | | | | [place], | | | | | | [place] [address] | | | | | | [phone] | | | | | | | | +--------+---------+ + + + documented as of this encounter Visit Diagnoses Not on filedocumented in this encounter"
--- OUTSIDE RECORDS SUMMARY | ~2019-02-28 | XMS | Encounter Summary ---
Demographics + + + | Address | [address] | | | [place] [address] | + + + | Home Phone [...] Team Providers + +------+ + | Care Air Brake Rigger Name | Role | Phone | + +------+ + PCP | Unavailable | + +------+ + Encounter Details +--------+ + + + + | Date | Type | Department | Care Team | Description | +--------+ + + + + | 11/27/ | Hospital | [facility] | Ozzy Delcid, | | | 2009 | Encounter | MED CTR LABORATORY | MD [address] | | | | | [address] [place] | [place], [place] | | | | | [place], [place] | [address] | | | | | [address] | | | | | | [phone] | | | +--------+ + + + [...] [place] | | | | | | [address] | | | | | | | | +--------+---------+ + + + | 11/24/ | Office | Cardiology | [place], | | | 2019 | Visit | | SINDHU Erickson [address] | | | | | | [place] | | | | | | [place] [address] | | | | | | [phone] | | | | | | | | +--------+---------+ + + + documented as of this encounter Visit Diagnoses Not on filedocumented in this encounter"
--- OUTSIDE RECORDS SUMMARY | ~2019-02-28 | XMS | Encounter Summary ---
Demographics + + + | Address | [address] | | | [place] [address] | + + + | Home Phone [...] Team Providers + +------+ + | Care Pinked Edge Sewing Machine Operator Name | Role | Phone | + +------+ + | Juan Cherry DO | PCP | | + +------+ + Reason for Visit +--------+ + | Reason | Comments | +--------+ + | Other | new issues | +--------+ + Encounter Details +--------+ + + + + | Date | Type | Department | Care Team | Description | +--------+ + + + + | 08/15/ | Telephone | [facility] | Jared Mcdonough, | Other (new issues) | | 2014 | | CARDIOLOGY [address] | [address] | | | | | [place], | [place], | | | | | [place] [address] | [place] [id number] | | | | | [phone] | [phone] | | | | | | | [...] | | | | | | [place] [id number] | | | | | | [phone] | | | | | | | | +--------+---------+ + + + documented as of this encounter Visit Diagnoses Not on filedocumented in this encounter"
--- OUTSIDE RECORDS SUMMARY | ~2019-02-28 | XMS | Encounter Summary ---
Demographics + + + | Address | [address] | | | [place] [address] | + + + | Home Phone [...] + + + | Author | [facility] | | | and [place] | + + + | Organization | [facility] | | | [...] Team Providers + +------+ + | Care Lacing Presser Name | Role | Phone | + [...] Description | +--------+--------+ + + + | 12/29/ | Refill | [facility] | [place], | Medication Refill | | 2016 | | CARDIOLOGY [address] | SINDHU Erickson [address] | | | | | [place], | [place], | | | | | [place] [address] | [place] [address] | | | | | [phone] | [phone] | | | | | | | [...] | | | | | | [place] [address] | | | | | | [phone] | | | | | | | | +--------+---------+ + + + documented as of this encounter Visit Diagnoses Not on filedocumented in this encounter"
--- OUTSIDE RECORDS SUMMARY | ~2019-02-28 | XMS | Encounter Summary ---
Demographics + + + | Address | [address] | | | [place] [address] | + + + | Home Phone [...] Team Providers + +------+ + | Care Warehouse Shipping Supervisor Name | Role | Phone | [...] + + | 07/27/ | Office | [facility] | Brian Miranda | Sprain of chest | | 2013 | Visit | [facility] | [address] | abigail garcia | | | | [address] | [facility] | encounter (Primary | | | | [address] [facility] | [place] [address] | Dx); Place of | | | | [place], [place] | [phone] | occurrence, | | | | [address] | | industrial places | | | | [phone] | | and premises | +--------+---------+ + [...] Date of injury: 04/05/13 [place] number: [id number] Chief complaint: chest wall sprain, closing evaluation [...] well over a month ago from the insurance claims analyst for the department of labors and in [employer] requesting information regarding claims management and patient's condition, that form is completed today and this does represent a closing evaluation on this individual. No orse nges in background medical information of. Past medical history, medications, allergies reviewed Review of systems: As per HPI Objective: Vital signs as noted, nursing notes reviewed. Ujqrvks-rhbk-yxwohkygh, well-nourished, in no apparent distress, pleasant cooperative. [...] [place] | | | | | | [id number] | | | | | | | | +--------+---------+ + + + | 11/24/ | Office | Cardiology | [place], | | | 2019 | Visit | | SINDHU Erickson [address] | | | | | | [place] | | | | | | [place] [address] | | | | | | [phone] | | | | | | | | +--------+---------+ + + + documented as of this encounter Visit Diagnoses + + | Diagnosis | + + | Sprain of chest wall, subsequent encounter - Primary | + + | Place of occurrence, industrial places and premises | + + documented in this encounter
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
--- OUTSIDE RECORDS SUMMARY | ~2019-02-28 | XMS | Encounter Summary ---
Demographics + + + | Address | [address] | | | [place] [address] | + + + | Home Phone [...] Team Providers + +------+ + | Care Compounder Helper Name | Role | Phone | [...] | | [address] | [address] | cystitis (Primary | | | | [place], [place] | [address] | Dx) | | | | [address] | [place] [address] | | | | | [phone] | [phone] | | | | | | | [...] [place] | | | | | | [address] | | | | | | | | +--------+---------+ + + + | 11/24/ | Office | Cardiology | [place], | | | 2019 | Visit | | SINDHU Erickson [address] | | | | | | [place], | | | | | | [place] [address] | | | | | | [phone] | | | | | | | | +--------+---------+ + + + documented as of this encounter Visit Diagnoses + + | Diagnosis | + + | Interstitial cystitis - Primary Chronic interstitial cystitis | + + documented in this encounter"
--- OUTSIDE RECORDS SUMMARY | ~2019-02-28 | XMS | Encounter Summary ---
Demographics + + + | Address | [address] | | | [place] [address] | + + + | Home Phone [...] Providers + +------+ + | Care It Programmer Name | Role | Phone | + +------+ + | Juan Cherry DO | PCP | | + +------+ + Reason for Visit + + + | Reason | Comments | + + + | Tachycardia | | + + + Encounter Details +--------+ + + + + | Date | Type | Department | Care Team | Description | +--------+ + + + + | 08/14/ | Emergency | [facility] | Sonny Cesar MD | Sinus tachycardia | | 2018 | | [facility] | [address] | (Primary Dx) | | | | CENTER [address] | [place] | | | | | [place] | [address] | | | | | [address] | | | | | | [phone] | | | +--------+ + + + [...] + + + | Blood Pressure | 104/65 | 08/14/2017 4:15 PM | | | | | PDT | | + + + + + | Pulse | 107 | 08/14/2017 4:15 PM | | | | | PDT | | + + + + + | Temperature | 36.8 C (98.3 F) | 08/14/2017 2:51 PM | | | | | PDT | | + + + + + | Respiratory Rate | 24 | 08/14/2017 3:00 PM | | | | | PDT | | + + + + + | Oxygen Saturation | 97% | 08/14/2017 4:15 PM | | | | | PDT | | + + + + + | Inhaled Oxygen | - | - | | | Concentration | | | | + + + + + | Weight | 77.1 kg (170 lb) | 08/14/2017 2:49 PM | | | | | PDT | | + + + + + | Height | 154.9 cm (5' 1") | 08/14/2017 2:49 PM | | | | | PDT | | + + + + + | Body Mass Index | 32.12 | 08/14/2017 2:49 PM | | | | | PDT [...] as of this encounter Discharge Instructions Instructions Sonny Cesar MD - 08/14/2017Rest and fluids Continue medications as previously Return for fever, uncontrolled vomiting, chest pain, shortness breath, not improving, other new complaints documented in this encounter Medications at Time [...] provide | 1 each | 0 | /20/20 | | | Therapy Supplies | patient [...] | | | | | order to [facility]. | | | | | [...] | | send order to [facility] | | | | | | | [facility]. | | | | | | | [...] | | | | | ([facility]) | | | | | | + [...] [place] | | | | | | [place] [address] | | | | | | [phone] | | | | | | | | +--------+---------+ + + + + +------+--------+ + + | Name | Type | Priori | Associated Diagnoses | Date/Time | | | | ty | | | + +------+--------+ + + | ED INFORMATION | BALWINDER | Routin | | 08/14/2017 2:46 PM | | EXCHANGE | | e | | PDT | + +------+--------+ + + documented as of this encounter Procedures + +--------+ + + + | Procedure Name | Priori | Date/Time | Associated Diagnosis | Comments | | | ty | | | | + +--------+ + + + | XR CHEST AP PORTABLE | STAT | 08/14/2017 | | Results for this | | | | 3:05 PM | | procedure are in the | | | | PDT | | results section. | + +--------+ + + + | CBC W/AUTO | STAT | 08/14/2017 | | Results for this | | DIFFERENTIAL | | 2:57 PM | | procedure are in the | | | | PDT | | results section. | + +--------+ + + + | TROPONIN I | STAT | 08/14/2017 | | Results for this | | | | 2:57 PM | | procedure are in the | | | | PDT | | results section. | + +--------+ + + + | B TYPE NATRIURETIC | STAT | 08/14/2017 | | Results for this | | PEPTIDE | | 2:57 PM | | procedure are in the | | | | PDT | | results section. | + +--------+ + + + | MAGNESIUM | STAT | 08/14/2017 | | Results for this | | | | 2:57 PM | | procedure are in the | | | | PDT | | results section. | + +--------+ + + + | COMPREHENSIVE | STAT | 08/14/2017 | | Results for this | | METABOLIC PANEL | | 2:57 PM | | procedure are in the | | | | PDT | | results section. | + +--------+ + + + | ECG 12 LEAD | STAT | 08/14/2017 | | Results for this | | | | 2:50 PM | | procedure are in the | | | | PDT | | results section. | + +--------+ + + + documented in this encounter Results XR Chest AP Portable (08/14/2017 3:05 PM PDT) + + | Specimen | + + | | + + + + + | Narrative | Performed At | + + + | EXAM: XR CHEST AP PORTABLE dated 08/14/2017 3:05 PM HISTORY: | [facility] | | TACHYCARDIA Comparison: November 13, 2015 TECHNIQUE: A single | | | portable view of the chest. FINDINGS: The lungs are | | | symmetrically aerated. Faint nodule in the right upper lobe. This | | | is known. The lungs are otherwise clear. There are no large | | | pleural effusions. There is no pneumothorax. The cardiac and | | | mediastinal contours are not enlarged. No acute osseous | | | abnormalities. IMPRESSION - No radiographic evidence for | | | acute disease in the chest. Dictated and Signed by: Lencho Reynolds | | | MD Shira Electronically signed: 08/14/2017 3:19 PM | | + + + + + | Procedure Note | + + | Reed, Rad Results In - 08/14/2017 3:22 PM PDT EXAM: XR CHEST AP PORTABLE dated | | 08/14/2017 3:05 PMHISTORY: TACHYCARDIAComparison: November 13, 2015TECHNIQUE: A single | | portable view of the chest.FINDINGS:The lungs are symmetrically aerated. Faint nodule | | in the right upper lobe. This is known. The lungs are otherwise clear. There are no | | large pleuraleffusions. There is no pneumothorax. The cardiac and mediastinal contours | | arenot enlarged. No acute osseous abnormalities. IMPRESSION -No radiographic evidence | | for acute disease in the chest.Dictated and Signed by: Lencho Silva MD | | Electronically signed: 08/14/2017 3:19 PM | |FINDINGS: | | | |The lungs are symmetrically aerated. Faint nodule in the right upper lobe. | |This is known. The lungs are otherwise clear. There are no large pleural | |effusions. There is no pneumothorax. The cardiac and mediastinal contours are | |not enlarged. No acute osseous abnormalities. | | | |IMPRESSION - | | | |No radiographic evidence for acute disease in the chest. | | | |Dictated and Signed by: Lencho Silva MD | | Electronically signed: 08/14/2017 3:19 PM | + + + +---------+ + + | Performing | Address | City/State/Zipcode | Phone Number | | Organization | | | | + +---------+ + + | [facility] | | | | + +---------+ + + B Type Natriuretic Peptide (08/14/2017 2:57 PM PDT) + +-------+ + + + | Component | Value | Ref Range | Performed | Pathologist | | | | | At | Signature | + +-------+ + + + | BNP | 22 | <100 pg/mL | [facility] | | | | | [...] [address] | [place] | [phone] | | [facility] | | [address] | | | - LABORATORY | | | | + + + + + Troponin I (08/14/2017 2:57 PM PDT) + + + + + + | Component | Value | Ref Range | Performed | Pathologist | | | | | At | Signature | + + + + + + | Troponin I | <0.01Comment: Reference | <0.06 ng/mL | [facility] | | | | Ranges:0.00-0.06 = | | [facility] | | | | NORMAL>0.06 = | | MEDICAL | | | | SUSPICIOUS FOR | | CENTER - | | | | MYOCARDIAL DAMAGE NOTE: | | LABORATORY | | | | Values greater than 0.50 | | | | | | ng/mL have been shown | | | | | | to be strongly | | | | | | associated with acute | | | | | | myocardial infarction. | | | | | | The [employer] | | | | | | Cardiology (ACC) | | | | | | recommends a decision | | | | | | limit of 0.06 ng/mL for | | | | | | this assay. Results | | | | | | greater than 0.06 can | | | | | | reflect a pre-infarct | | | | | | acute coronary syndrome, | | | | | | but can also reflect | | | | | | myocardial necrosis or | | | | | | injury that is not due | | | | | | to coronary artery | | | | | | disease. Some of these | | | | | | causes are sepsis, | | | | | | hypocolemia, atrial | | | | | | fibrillation, heart | | | | | | failure, pulmonary | | | | | | embolism, myocarditis, | | | | | | myocardial contusion, | | | | | | and renal failure. The | | | | | | diagnosis of myocardial | | | | | | infarction should be | | | | | | based on a combination | | | | | | of the patient's | | | | | | clinical presentation | | | | | | and the clinical | | | | | | laboratory test results | | | | | | (especially serial | | | | | | troponin levels). | | | | + + + + + + + + | Specimen | + + | Blood | + + + + + + + | Performing | Address | City/State/Zipcode | Phone Number | | Organization | | | | + + + + + | [facility] | [address] | [place] | [phone] | | [facility] | | [address] | | | - LABORATORY | | | | + + + + + Magnesium (08/14/2017 2:57 PM PDT) + +-------+ + + + | Component | Value | Ref Range | Performed | Pathologist | | | | | At | Signature | + +-------+ + + + | Magnesium | 1.9 | 1.8 - 2.5 mg/dL | [facility] | | | | [...] [address] | [place] | [phone] | | [facility] | | [address] | | | - LABORATORY | | | | + + + + + Comprehensive Metabolic Panel (08/14/2017 2:57 PM PDT) + + + + + + | Component | Value | Ref Range | Performed | Pathologist | | | | | At | Signature | + + + + + + | Na | 138 | 136 - 149 | [facility] | [...] + + + + | Cl | 107 | 98 - 109 mmol/L | [facility] [...] + + + | Anion Gap | 9 | 3 - 16 mmol/L | [facility] | | | | | | [facility] | | | | | | MEDICAL | | | | | | CENTER - | | | | | | LABORATORY | | + + + + + + | Glucose | 116 (H) | 70 - 109 mg/dL | [facility] | | | | | | [facility] | | | | | | MEDICAL | | | | | | CENTER - | | | | | | LABORATORY | | + + + + + + | BUN | 4 (L) | 7 - 18 mg/dL | [facility] | | | | | | [facility] | | | | | | MEDICAL | | | | | | CENTER - | | | | | | LABORATORY | | + + + + + + | Creatinine | 0.84 | 0.60 - 1.30 | [facility] | | | | | mg/dL | [facility] | | | | | | MEDICAL | | | | | | CENTER - | | | | | | LABORATORY | | + + + + + + | eGFR if not | >60Comment: GLOMERULAR | >=60 | [facility] | | | FILTR[facility] | mL/min/1.73m2 | [facility] | | | NIGERIAN | RATE,ESTIMATED | | MEDICAL | | | | mL/min/1.57b9Ohad than | | CENTER - | | [...] + + + + | Calcium | 8.8 | 8.3 - 10.5 | [facility] | | | | | mg/dL | [facility] | | | | | | MEDICAL | | | | | | CENTER - | | | | | | LABORATORY | | + + + + + + | Albumin | 3.8 | 3.2 - 5.0 g/dL | [facility] | | | | | | [facility] | | | | | | MEDICAL | | | | | | CENTER - | | | | | | LABORATORY | | + + + + + + | Bilirubin | 0.6Comment: This is an | 0.1 - 1.5 [...] + + + + | Total | 6.2 | 6.0 - 7.8 g/dL | [facility] | | | Protein | | | [facility] | | | | | | MEDICAL | | | | | | CENTER - | | | | | | LABORATORY | | + + + + + + | AST | 29Comment: This is an | 10 - 42 [...] + + + + | Alkaline | 73Comment: This is an | 40 - 110 [...] + + + + | Globulin | 2.4 | 2.1 - 3.8 g/dL | [facility] | | | | | | [facility] | | | | | | MEDICAL | | | | | | CENTER - | | | | | | LABORATORY | | + + + + + + | Albumin/Jewell | 1.6 | 0.8 - 2.0 | [facility] | | | bulin Ratio | | | [facility] | | | | | | MEDICAL | | | | | | CENTER - | | | | | | LABORATORY | | + + + + + + | BUN/Creatin | 4.8 | | [facility] | | | ine Ratio | | | [facility] | | [...] [address] | [place] | [phone] | | [facility] | | [address] | | | - LABORATORY | | | | + + + + + CBC w/ Auto Differential (08/14/2017 2:57 PM PDT) + + + + + + | Component | Value | Ref Range | Performed | Pathologist | | | | | At | Signature | + + + + + + | WBC | 12.0 (H) | 4.0 - 11.0 K/uL | [facility] | | | | | | [facility] | | | | | | MEDICAL | | | | | | CENTER - | | | | | | LABORATORY | | + + + + + + | RBC | 4.70 | 3.70 - 5.20 | [facility] | | | | | M/uL | [facility] | | | | | | MEDICAL | | | | | | CENTER - | | | | | | LABORATORY | | + + + + + + | Hemoglobin | 13.3 | 11.5 - 16.0 | [facility] | | | | | g/dL | [facility] | | | | | | MEDICAL | | | | | | CENTER - | | | | | | LABORATORY | | + + + + + + | Hematocrit | 39.4 | 34.0 - 47.0 % | [facility] | | | | | | [facility] | | | | | | MEDICAL | | | | | | CENTER - | | | | | | LABORATORY | | + + + + + + | MCV | 83.8 | 83.0 - 101.0 fL | [facility] | | | | | | [facility] | | | | | | MEDICAL | | | | | | CENTER - | | | | | | LABORATORY | | + + + + + + | MCH | 28.3 | 28.0 - 35.0 pg | [facility] | | | | | | [facility] | | | | | | MEDICAL | | | | | | CENTER - | | | | | | LABORATORY | | + + + + + + | MCHC | 33.8 | 32.0 - 36.0 | [facility] | | | | | g/dL | [facility] | | | | | | MEDICAL | | | | | | CENTER - | | | | | | LABORATORY | | + + + + + + | RDW-CV | 15.4 (H) | <15.0 % | [facility] | | | | | | [facility] | | | | | | MEDICAL | | | | | | CENTER - | | | | | | LABORATORY | | + + + + + + | Platelet | 452 (H) | 140 - 440 K/uL | [facility] | | | Count | | | [facility] | | | | | | MEDICAL | | | | | | CENTER - | | | | | | LABORATORY | | + + + + + + | MPV | 6.6 | fL | [facility] | | | | | | [facility] | | | | | | MEDICAL | | | | | | CENTER - | | | | | | LABORATORY | | + + + + + + | % | 76.4 | 45.0 - 82.0 % | [facility] | | | Neutrophils | | | [facility] | | | | | | MEDICAL | | | | | | CENTER - | | | | | | LABORATORY | | + + + + + + | % | 15.8 (L) | 20.0 - 45.0 % | [facility] | | | Lymphocytes | | | [facility] | | | | | | MEDICAL | | | | | | CENTER - | | | | | | LABORATORY | | + + + + + + | % Monocytes | 7.2 | 4.0 - 12.0 % | [facility] | | | | | | [facility] | | | | | | MEDICAL | | | | | | CENTER - | | | | | | LABORATORY | | + + + + + + | % | 0.2 | 0.0 - 5.0 % | [facility] | | | Eosinophils | | | [facility] | | | | | | MEDICAL | | | | | | CENTER - | | | | | | LABORATORY | | + + + + + + | % Basophils | 0.4 | 0.0 - 1.0 % | [facility] | | | | | | [facility] | | | | | | MEDICAL | | | | | | CENTER - | | | | | | LABORATORY | | + + + + + + | Absolute | 9.10 (H) | 1.80 - 8.50 | [facility] | | | Neutrophils | | K/uL | [facility] | | | | | | MEDICAL | | | | | | CENTER - | | | | | | LABORATORY | | + + + + + + | Absolute | 1.90 | 0.60 - 3.20 | [facility] | | | Lymphocytes | | K/uL | [facility] | | | | | | MEDICAL | | | | | | CENTER - | | | | | | LABORATORY | | + + + + + + | Absolute | 0.90 | 0.00 - 1.00 | [facility] | | | Monocytes | | K/uL | [facility] | | | | | | MEDICAL | | | | | | CENTER - | | | | | | LABORATORY | | + + + + + + | Absolute | 0.00 | 0.00 - 0.40 | [facility] | | | Eosinophils | | K/uL | [facility] | | | | | | MEDICAL | | | | | | CENTER - | | | | | | LABORATORY | | + + + + + + | Absolute | 0.10 | 0.00 - 0.10 | [facility] | | | Basophils | | K/uL | [facility] | | | | [...] | [facility] | [address] | [place] | [phone] | | [facility] | | [address] | | | - LABORATORY | | | | + + + + + ECG 12 lead (08/14/2017 2:50 PM PDT) + + + + + + | Component | Value | Ref Range | Performed | Pathologist | | | | | At | Signature | + + + + + + | VENTRICULAR | 110 | BPM | [facility] | | | RATE EKG | | | | | + + + + + + | ATRIAL RATE | 110 | BPM | [facility] | | + + + + + + | P-R | 130 | ms | [facility] | | | INTERVAL | | | | | + + + + + + | QRS | 68 | ms | [facility] | | | DURATION | | | | | + + + + + + | Q-T | 332 | ms | [facility] | | | INTERVAL | | | | | + + + + + + | Q-T | 449 | ms | [facility] | | | INTERVAL | | | | | | (CORRECTED) | | | | | + + + + + + | P WAVE AXIS | 57 | degrees | [facility] | | + + + + + + | QRS AXIS | 0 | degrees | [facility] | | + + + + + + | T AXIS | 53 | degrees | [facility] | | + + + + + + | INTERPRETAT | Sinus tachycardia with | | [facility] | | | ION TEXT | occasional premature | | | | | | ventricular | | | | | | complexesNonspecific ST | | | | | | and T wave | | | | | | abnormalityWhen compared | | | | | | with ECG of 06-MAY-2017 | | | | | | 09:58,premature | | | | | | ventricular complexes | | | | | | are now presentVent. | | | | | | rate has increased BY | | | | | | 45 BPMT wave amplitude | | | | | | has decreased in | | | | | | Lateral leads and | | | | | | Inferior | | | | | | leadsConfirmed by | | | | | | RAFA WELLS MD ([id number]) | | | | | | on 08/15/2017 5:59:09 AM | | | | + + + [...] + | Diagnosis | + + | Sinus tachycardia - Primary Other specified cardiac dysrhythmias | + + documented in this encounter Administered Medications + +--------+ +--------+------+------+ | Medication Order | MAR | Action | Dose | Rate | Site | | | Action | Date | | | | + +--------+ +--------+------+------+ | LORazepam (ATIVAN) injection | Given | 08/15/19 | 0.5 mg | | | | 0.5 mg 0.5 mg, Intravenous, | | 18 3:01 | | | | | ONCE, [facility] 08/14/17 at 1500, For 1 | | PM PDT | | | | | dose | | | | | | + +--------+ +--------+------+------+ +---+---+ | | | +---+---+ + +---------+ +---------+-------+---+ | sodium chloride 0.9% (NS) bolus | New Bag | 08/15/19 | 500 mLs | 500 | | | 500 mL 500 mL, Intravenous, | | 18 3:01 | | mL/hr | | | Administer over 1 Hours, ONCE, | | PM PDT | | | | | [facility] 08/14/17 at 1500, For 1 dose | | | | | | + +---------+ +---------+-------+---+ +---+---+ | | | +---+---+ documented in this encounter
--- OUTSIDE RECORDS SUMMARY | ~2019-02-28 | XMS | Encounter Summary ---
Demographics + + + | Address | [address] | | | [place] [address] | + + + | Home Phone [...] Providers + +------+ + | Care Assistant Fitness Manager Name | Role | Phone | [...] + + + + | 06/27/ | Telephone | [facility] | Weber, Andriy | Other | | 2018 | | [address] | [address] | | | | | [place] | [facility] | | | | | [address] | [place] [address] | | | | | [phone] | [phone] | | | | | | | [...] [place] | | | | | | [address] | | | | | | | | +--------+---------+ + + + | 11/24/ | Office | Cardiology | [place], | | | 2019 | Visit | | [address] | | | | | | [place] | | | | | | [place] [address] | | | | | | [phone] | | | | | | | | +--------+---------+ + + + documented as of this encounter Visit Diagnoses Not on filedocumented in this encounter"
--- OUTSIDE RECORDS SUMMARY | ~2019-02-28 | XMS | Encounter Summary ---
Demographics + + + | Address | [address] | | | [place] [address] | + + + | Home Phone [...] Team Providers + +------+ + | Care Gas Worker Name | Role | Phone | + +------+ + | Juan Cherry DO | PCP | | + +------+ + Reason for Visit + + + | Reason | Comments | + + + | Follow-up | | + + + | Chest Pain | | + + + | Tachycardia | | + + + Encounter Details +--------+---------+ + + + | Date | Type | Department | Care Team | Description | +--------+---------+ + + + | 03/10/ | Office | [facility] | [place], | Generalized | | 2019 | Visit | CARDIOLOGY [address] | SINDHU Erickson [address] | weakness; | | | | [place], | [place], | Palpitations; | | | | [place] [address] | [place] [address] | Paroxysmal atrial | | | | [phone] | [phone] | tachycardia (HCC); | | | | | | Chest pain, | | | | | | unspecified type; | | | | | | Syncope, unspecified | | | | | | syncope type | +--------+---------+ + + + Social [...] + + + | Blood Pressure | 102/54 | 03/10/2018 11:15 AM | | | | | PST | | + + + + + | Pulse | 100 | 03/10/2018 11:15 AM | | | | | PST | | + + + + + | Temperature | - | - | | + + + + + | Respiratory Rate | 18 | 03/10/2018 11:15 AM | | | | | PST | | + + + + + | Oxygen Saturation | - | - | | + + + + + | Inhaled Oxygen | - | - | | | Concentration | | | | + + + + + | Weight | 70.7 kg (155 lb 13.8 | 03/10/2018 11:15 AM | | | | oz) | PST | | + + + + + | Height | 154.9 cm (5' 1") | 03/10/2018 11:15 AM | | | | | PST | | + + + + + | Body Mass Index | 29.45 | 03/10/2018 11:15 AM | | | | | [...] encounter Progress Notes Georgina Tanner ARNP - 03/10/2018 11:30 AM PSTFormatting of this note might be differen t from the original. PATIENT NAME: Rosario Malik : 1965: AGE: 53 y.o. PRIMARY CARE: Juan Cherry DO OUTPATIENT FOLLOW UP VISIT Date of Service: 03/10/2018 HISTORY OF PRESENT ILLNESS: Rosario Malik is a 53 y.o. female with a history of non-cardiac chest pain, inappropr iate atrial tachycardia, paroxysmal atrial tachycardia with palpitations, emphysema, hypothy roidism obstructive sleep apnea and nocturnal hypoxemia and bipolar disorder. She is being seen today for follow up for on palpitations. She was last seen 11/12/2017 at which time she would start Magnesium oxide 400 mg once every day. She would increase Propanolol 100 mg twice a day. Since that time, she was seen in [facility] emergency department due to a fall and weakness. She saw her PCP on 12/18/2017 for emergen cy department follow up. She also had a echocardiogram on 01/10/2018 while in the emergency department. Her propanolol was discontinued and she was started on metoprolol. She has had a fair energy level. She has not been very active. She states that she does no t do any exercises and is pretty lazy due to being on oxygen. She enjoys nothing really in her spare time. She has had chest discomfort yesterday and some today, she states that yest erday was pretty bad chest pain which she describes as "chest contractions". and lasted abo ut 15 minuets. Today is not as bad but is still there. She has had shortness of breath wit h walking She has not had any lightheadedness or dizziness. She has not noticed palpitatio ns. She has not had leg swelling. She sleeps on 2 pillows at night, which is her norm, and does not wake up at night feeling short of breath. She sleeps with BiPAP machine in place nightly with oxygen bled in at 3 liters per minute. MEDICAL, SURGICAL, AND PERSONAL HISTORY Past Medical, [...] loss of consciousness Intractable acute post-traumatic headache Hypotension due to medication Generalized weakness CURRENT MEDICATIONS Current Outpatient Prescriptions Medication Sig Dispense Refill digoxin (LANOXIN) 125 mcg tablet Take 1 tablet by mouth Daily. 90 tablet 3 fluticasone-salmeterol (ADVAIR HFA) 230-21 MCG/ACT inhaler Inhale 2 puffs into the lung s 2 times daily. gabapentin (NEURONTIN) 800 MG tablet Take 800 mg by mouth 3 times daily. hydrOXYzine hydrochloride (ATARAX) 25 mg tablet Take 1 tablet by mouth Daily. levothyroxine (SYNTHROID, LEVOTHROID) 75 MCG tablet Take 75 mcg by mouth every morning (before breakfast). magnesium oxide (MAG-OX) 400 mg tablet Take 1 tablet by mouth Daily. 30 tablet 5 metFORMIN (GLUCOPHAGE) 500 mg tablet Take 500 mg by mouth 2 times daily (with breakfast & dinner). 3 metoprolol tartrate (LOPRESSOR) 25 mg tablet Take 0.5 tablets by mouth 2 times daily. 6 0 tablet 0 oxybutynin (DITROPAN) 5 mg tablet Take 5 mg by mouth 2 times daily. oxygen Inhale into the lungs continuous. 2.5 L unless on her portable then shes on 3 L pantoprazole (PROTONIX) 20 mg tablet Take 40 mg by mouth every morning (before breakfas t). potassium chloride (KLOR-CON M20) 20 mEq ER tablet Take 1 tablet by mouth Daily. predniSONE (DELTASONE) 10 mg tablet Take 10 mg by mouth Daily. Respiratory Therapy Supplies MISC Please provide patient with necessary CPAP supplies ( she did not specify, okay to send order as appropriate) Diagnosis Code(s)327.23 . Length of Need 99 months. Please send order to [facility]. 1 each 0 Respiratory Therapy Supplies MISC [...] tablet 3 SUMAtriptan (IMITREX) 100 mg tablet Take 100 mg by mouth as needed. traMADol (ULTRAM) 50 mg tablet Take 50 [...] Weber MD 40 mg at 07/24/17 1058 ALLERGIES Allergies Allergen Reactions Onion Anaphylaxis Doxycycline Hives Erythromycin Base Other (See Comments) Bloating and swelling, lips swell Macrolides And Ketolides Hives Nsaids Hives Pork Allergy Other (See Comments) GI distress Sucralose Other (See Comments) Migraine Meperidine Panic attacks ROS Review of Systems Constitutional: Positive for malaise/fatigue. Respiratory: Positive for shortness of breath (normal ). Cardiovascular: Positive for chest pain (yesterday that was pretty bad, lasted about 15 min uets ) and orthopnea. Negative for palpitations and leg swelling. Neurological: Negative for dizziness, weakness and headaches. Lightheadedness- No OBJECTIVE: PHYSICAL EXAM BP 102/54 | Pulse 100 | Resp 18 | Ht 1.549 m (5' 1") | Wt 70.7 kg (155 lb 13.8 oz) | B ID 29.45 kg/m Physical Exam Constitutional: She is oriented to person, place, and time. She appears well-developed and well-nourished. Adult female in no acute distress, arrives alone Neck: Normal carotid pulses and no JVD present. Carotid bruit is not present. Cardiovascular: Regular rhythm, S1 normal, S2 normal, normal heart sounds and intact distal pulses. Tachycardia present. PMI is not displaced. Exam reveals no gallop and no frictio n rub. No murmur heard. Pulses: Carotid pulses are 2+ on the right side, and 2+ on the left side. Radial pulses are 2+ on the right side, and 2+ on the left side. Posterior tibial pulses are 2+ on the right side, and 2+ on the left side. Pulmonary/Chest: Effort normal and breath sounds normal. No accessory muscle usage. No resp iratory distress. She has no decreased breath sounds. She has no wheezes. She has no rhonchi . She has no rales. Abdominal: Soft. Normal appearance and normal aorta. She exhibits no abdominal bruit. There is no hepatosplenomegaly. There is no tenderness. Musculoskeletal: Normal range of motion. She exhibits no edema. Neurological: She is alert and oriented to person, place, and time. Gait normal. Skin: Skin is warm and dry. No cyanosis. Nails show no clubbing. Psychiatric: She has a normal mood and affect. Her mood appears not anxious. She does not e xhibit a depressed mood. Vitals reviewed. ECG: I personally independently reviewed ECG tracing during this visit (interpreted and jennifer led by another provider): Results for orders placed or performed during the hospital encounter of 03/10/2018 ECG 12 lead Result Value Ref Range INTERPRETATION TEXT Normal sinus rhythm Nonspecific ST abnormality Abnormal ECG Heart rate 100 bpm LAB RESULTS reviewed during visit today primarily from [facility]: LIPID Lab Results Component Value Date CHOLHDL 5.0 11/01/2015 LDLEX 143 (A) 11/01/2015 HDLEX 51 11/01/2015 TRIGEX 172 (A) 11/01/2015 CHOLEX 228 (A) 11/01/2015 CHEMISTRY Lab Results Component Value Date GLU 129 (H) 01/09/2018 GLUEX 108 (A) 11/05/2017 NA 140 01/09/2018 NAEX 140 11/05/2017 K 3.7 01/09/2018 KEX 3.8 11/05/2017 CL 106 01/09/2018 CLEX 105 11/05/2017 CO2 26 01/09/2018 CO2EX 24 11/05/2017 CALCIUM 8.8 01/09/2018 ALKPHOS 70 2018 AST 38 2018 ASTEX 19 03/18/2017 ALT 17 2018 ALTEX 13 03/18/2017 BILITOT 0.6 2018 CREA 0.61 01/09/2018 BUN 4 (L) 01/09/2018 EGFR >60 03/22/2013 EGFREX 60 11/05/2017 CREEX 0.5 (A) 11/05/2017 HEMATOLOGY Lab Results Component Value Date WBC 8.4 01/09/2018 WBCEX 14.0 (A) 06/10/2017 HGB 11.9 01/09/2018 HGBEX 13.2 06/10/2017 HCT 37.5 01/09/2018 HCTEX 39.6 06/10/2017 PLT 400 01/09/2018 PLTEX 507 (A) 06/10/2017 Lab Results Component Value Date TSH 1.00 2018 TSHEX 0.920 07/28/2013 BNP 45 2018 [address] reviewed records from [facility] for hospitalization,including H& P, Discharge Summary and lab reports on 2018 which is summarized in the HPI. RESULTS- I reviewed reports from [facility]: No results found. ECHO 01/10/2018 - Normal left ventricular chamber diameter with upper normal wall thickness . Normal left ventricular systolic function without regional wall motion abnormality. No s ignificant cardiac valvular abnormality When compared with prior echocardiogram dated , no significant interval change. XR Chest 2018 - NO RADIOGRAPHIC EVIDENCE OF TRAUMATIC INJURY OR NEW DISEASE IN THE CH EST. SIMILAR SMALL NODULAR DENSITY IN THE RIGHT LUNG APEX. CONSIDER INTERVAL CT FOLLOW-U P RECOMMENDED IN JULY 2017. PROBABLE LEFT BASILAR PLEURAL-PARENCHYMAL SCAR. Above data and testing is reviewed this visit; testing below is historical data unless othe rwise specified. ASSESSMENT: 1. Palpitation secondary to the paroxysmal atrial tachycardia and sinus tachycardia: A. She has been in her usual state of health until about months ago when she started to notice the fluctuation of her pulses. She stated her heart rate can g o up to 130 per minute while she was sitting in a chair doing nothing. B. Echocardiogram, 08/23/2013 normal systolic left ventricular and v entricular function done at the [facility]. LVEF 78%. C. Holter Monitor 08/16/13 [...] not returned an d no symptoms reported. G.48-Hour Holtermonitor 06/27/2017 shows the predominant rhythm i s sinus with HR between 51 to 174 bpm, the average HR was 74 bpm during the 47:58 hour recor ding, there were very rare PVC's (53 total, mean 1.1/hr) with 1 couplet and no triplets, the re were occasional PAC's (2261 total, mean 47.1/hr), there were 364 episodes of sinus bradyc ardia the longest was 159 beats on Friday 08:41. The minimum rate was 48 bpm on Friday 05:21, there were 59 episodes of sinus tachycardia, the longest was 749 beats on Friday 15 :55, the maximum rate was 180 bpm on Friday 15:41 (mowing the lawn from 15:30 to 15:54), di nohemi was returned with no rhythm changes corresponding with symptoms noted except for tachyca rdia when patient mowed the lawn, by Clay Mcdonough MD. H. Seen in emergency department 08/14/17, 08/30/17, and 09/13/17 for pa lpitations. Also found to be hypokalemic the last two visits, and given doses of potassium e ach time. I. Echocardiogram 01/10/2018 - Normal left ventricular chamber diam eter with upper normal wall thickness. Normal left ventricular systolic function without re gional wall motion abnormality. No significant cardiac valvular abnormality When compared w ith prior echocardiogram dated 01/14/14, no significant interval change. J.Today, 03/10/2018, she is recovering from her last hospitalization with generalized weakn ess. At that time she was switched from Propanolol to metoprolol, and she is doing well in i t without hypotension. She is in class II of the [place] [employer] functional clas s. There are no signs or symptoms of overt congestive heart failure. 2. Hypotensionsecondary to medication: A. Her propranolol was decreased 06/2017 due to hypotension. B. Today, 03/10/2018, blood pressure is within normal levels at this ti me. 3. Hypokalemia: A. Noted on labs in emergency department 08/30/17 and 09/13/17, and as sociated with worsening palpitations. She has had intermittent doses of potassium chloride d uring those events to boost it and had discussion of eating high potassium diet. B. 03/10/2018 not an issue at this time. 4.Non-cardiac chest pain: A. She has had complaint of sharp chest pain that is aggravated whe n she takes deep breath and sits up. Symptom is better when she lays down. She also comp lained of the trouble breathing on exertion. She was seen at the ED of [facility] 3 weeks ago and again 1 [...] smo othly contoured coronary arteries, LVEF 60%. D.Today, 03/10/2018, she has had no new angina episodes except her u sual contractures 3.Emphysema/COPD: Not otherwise addressed today 03/10/2018. A. She is on oxygen. 4. Hypothyroidism. Not otherwise addressed today 03/10/2018. 5. Obstructive sleep apnea and nocturnal hypoxemia. Not otherwise addressed today 03/10/2018 . A. She is utilizing BiPAP with no oxygen. 6. Pre-diabetes: Not otherwise addressed today 03/10/2018. A. She is on metformin. 7. Fibromyalgia per the patient report. Not otherwise addressed today 09/17/2017. A. She notes that taking mag ox in the past "flared up" her fibromy algia. Will be checking magnesium due to her hypokalemia, and if it is also low, will look a t trying an alternate formation of potassium. PLAN: 1. The current medical regimen is effective; continue present plan and medications. She wi ll continue with metoprolol instead of propanolol 2. She will follow up in 6 months for office visit, or sooner with concerns. She will hav e fasting labs prior to visit for lipid profile, CMP and CBC, if not done prior by another rosemary ho. Portions of this chart may have been created with [employer] voice recognition software. Occasi onal wrong-word or [...] ASHLEY | | | | | | [phone] | | | | | | | | +--------+---------+ + + + | 11/24/ | Office | Cardiology | [place], | | | 2019 | Visit | | SINDHU Erickson [address] | | | | | | [place] | | | | | | [place] [address] | | | | | | [phone] | | | | | | | | +--------+---------+ + + + documented as of this encounter Procedures + +--------+ + + + | Procedure Name | Priori | Date/Time | Associated Diagnosis | Comments | | | ty | | | | + +--------+ + + + | ECG 12 LEAD | Routin | 03/10/2018 | Paroxysmal atrial | Results for this | | | e | 11:34 AM | tachycardia (HCC) | procedure are in the | | | | PST | Chest pain, | results section. | | | | | unspecified type | | + +--------+ + + + documented in this encounter Results ECG 12 lead (03/10/2018 11:34 AM PST) + + + + + + | Component | Value | Ref Range | Performed | Pathologist | | | | | At | Signature | + + + + + + | VENTRICULAR | 100 | BPM | [facility] | | | RATE EKG | | | | | + + + + + + | ATRIAL RATE | 100 | BPM | [facility] | | + + + + + + | P-R | 126 | ms | [facility] | | | INTERVAL | | | | | + + + + + + | QRS | 70 | ms | [facility] | | | DURATION | | | | | + + + + + + | Q-T | 350 | ms | [facility] | | | INTERVAL | | | | | + + + + + + | Q-T | 451 | ms | [facility] | | | INTERVAL | | | | | | (CORRECTED) | | | | | + + + + + + | P WAVE AXIS | 69 | degrees | [facility] | | + + + + + + | QRS AXIS | 52 | degrees | [facility] | | + + + + + + | T AXIS | 62 | degrees | [facility] | | + + + + + + | INTERPRETAT | Normal sinus | | [facility] | | | ION TEXT | rhythmNonspecific ST | | | | | | abnormalityAbnormal | | | | | | ECGWhen compared with | | | | | | ECG of 08-JAN-2018 | | | | | | 09:49,Vent. rate has | | | | | | increased BY 33 | | | | | | BPMConfirmed by | | | | | | CLAY MCDONOUGH MD | | | | | | ([id number]) on 03/11/2018 | | | | | | 1:33:16 PM | | | | + + [...] + | Diagnosis | + + | Generalized weakness Other malaise and fatigue | + + | Palpitations | + + | Paroxysmal atrial tachycardia (HCC) Paroxysmal supraventricular tachycardia | + + | Chest pain, unspecified type | + + | Syncope, unspecified syncope type | + + documented in this encounter
--- OUTSIDE RECORDS SUMMARY | ~2019-02-28 | XMS | Encounter Summary ---
Demographics + + + | Address | [address] | | | [place] [address] | + + + | Home Phone [...] Team Providers + +------+ + | Care Cattle Driver Name | Role | Phone | + +------+ + | Juan Cherry DO | PCP | | + +------+ + Reason for Visit +--------+ + | Reason | Comments | +--------+ + | Other | referral to hotel security officer or dietian | +--------+ + Encounter Details +--------+ + + + + | Date | Type | Department | Care Team | Description | +--------+ + + + + | 04/03/ | Telephone | [facility] | [place], | Other (referral to | | 2017 | | CARDIOLOGY [address] | SINDHU Erickson [address] | hotel security officer or | | | | [place], | [place], | dietian) | | | | [place] [address] | [place] [address] | | | | | [phone] | [phone] | | | | | | | [...] [place] | | | | | | [place] [address] | | | | | | [phone] | | | | | | | | +--------+---------+ + + + documented as of this encounter Visit Diagnoses Not on filedocumented in this encounter"
--- OUTSIDE RECORDS SUMMARY | ~2019-02-28 | XMS | Encounter Summary ---
Demographics + + + | Address | [address] | | | [place] [address] | + + + | Home Phone [...] Team Providers + +------+ + | Care Purler Name | Role | Phone | + +------+ + | Juan Cherry DO | PCP | | + +------+ + Encounter Details +--------+---------+ + + + | Date | Type | Department | Care Team | Description | +--------+---------+ + + + | 10/22/ | Office | [facility] | Jared Mcdonough, | Chronic obstructive | | 2017 | Visit | [facility] | [address] | pulmonary disease, | | | | [facility] [address] | [place], | unspecified COPD | | | | [address] [place] | [place] [address] | type (HCC) (Primary | | | | [place] [address] | [phone] | Dx); Mild persistent | | | | [phone] | | asthma without | | | [...] this encounter Progress Notes Desean Chris - 10/22/2016 10:15 AM PDTPatient tolerated exercise session without [...] | | | | | | [place] [address] | | | | | | [phone] | | | | | | | [...]
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
--- OUTSIDE RECORDS SUMMARY | ~2019-02-28 | XMS | Encounter Summary ---
Demographics + + + | Address | [address] | | | [place] [address] | + + + | Home Phone [...] Team Providers + +------+ + | Care Supervisor Drapery Hanging Name | Role | Phone | + [...] | | | | [facility] | [address] | [address] | | | | | EXERCISE | [place], | [place] | | | | | | [place] [address] | [place], [place] | | | | | | Phone: | [address] | | | | | | [phone] | Phone: | | | | | | Fax: | [phone] | | | | | | [phone] | Fax: | | | | | | | [phone] | +--------+--------+ + + + + Encounter Details +--------+---------+ + + + | Date | Type | Department | Care Team | Description | +--------+---------+ + + + | 07/23/ | Office | [facility] | Jaerd Mcdonough, | Chronic obstructive | | 2017 | Visit | MED CTR CARDIAC | MD Migdalia King | pulmonary disease, | | | | REHABILITATION [address] [place], | unspecified COPD | | | | [address] [place] | [place] [address] | type (HCC) (Primary | | | | [place] [address] | [phone] | Dx); Mild persistent | | | | [phone] | | asthma without | | | [...] [place] | | | | | | [address] | | | | | | | | +--------+---------+ + + + | 11/24/ | Office | Cardiology | [place], | | | 2019 | Visit | | SINDHU Erickson [address] | | | | | | [place], | | | | | | [place] [address] | | | | | | [phone] | | | | | | | [...]
--- OUTSIDE RECORDS SUMMARY | ~2019-02-28 | XMS | Encounter Summary ---
Demographics + + + | Address | [address] | | | [place] [address] | + + + | Home Phone [...] Providers + +------+ + | Care Inside Barrel Lathe Operator Name | Role | Phone [...] | | | | OP [address] | [place] | | | | | [place] | [id number] | | | | | [address] | | | | | | [phone] | | | +--------+ + + + [...] Barkley, PT - 06/24/2016 11:10 AM [facility] OP [address] [place] [address] Physical Therapy Discharge Note This discharge is [...] to [place] this [place] [facility] The last progress note or the patients [...] | 2019 | Visit | | [address] | | | | | | [place] | | | | | | [address] | | | | | | | | +--------+---------+ + + + | 11/24/ | Office | Cardiology | [place], | | | 2019 | Visit | | SINDHU Erickson [address] | | | | | | [place] | | | | | | [place] [address] | | | | | | [phone] | | | | | | | | +--------+---------+ + + + documented as of this encounter Visit Diagnoses Not on filedocumented in this encounter"
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
--- OUTSIDE RECORDS SUMMARY | ~2019-02-28 | XMS | Encounter Summary ---
Demographics + + + | Address | [address] | | | [place] [address] | + + + | Home Phone [...] Team Providers + +------+ + | Care Near Eastern Archaeology Lecturer Name | Role | Phone | + [...] | | | | OP [address] | [place], [place] | | | | | [place], [place] | [address] | | | | | [address] | | | | | | [phone] | | | +--------+ + + + [...] Watson PT - 06/11/2016 10:11 AM [facility] [address] [facility] [address] Cancellation/No Show Date: 06/11/2016 Patient Information Patient Name: Rosario Malik Date of : 1965 Age: 51 y.o. Reason for missed visit: Called to cancel due to illness Phone call placed: no Plan: Cont with POC (2 more appts) Electronically signed by: Lakeshia Barkley PT, 06/11/2016 10:11 Patient Name: Rosario Malik/: 1965/ documented in this [facility] Plan of Treatment +--------+---------+ + + + | Date | Type | Specialty | Care Team | Description | +--------+---------+ + + + | 03/31/ | Office | Pulmonology | Mukul Clark MD | | | 2019 | Visit | | [address] | | | | | | [place] | | | | | | [address] | | | | | | | | +--------+---------+ + + + | 11/24/ | Office | Cardiology | [place], | | | 2019 | Visit | | SINDHU Erickson [address] | | | | | | [place], | | | | | | [place] [address] | | | | | | [phone] | | | | | | | | +--------+---------+ + + + documented as of this encounter Visit Diagnoses Not on filedocumented in this encounter"
--- OUTSIDE RECORDS SUMMARY | ~2019-02-28 | XMS | Encounter Summary ---
Demographics + + + | Address | [address] | | | [place] [address] | + + + | Home Phone [...] Team Providers + +------+ + | Care Anode Crew Supervisor Name | Role | Phone | + +------+ + | Juan Cherry DO | PCP | | + +------+ + Encounter Details +--------+ + + + + | Date | Type | Department | Care Team | Description | +--------+ + + + + | 04/12/ | Orders Only | [facility] [place] | Marilyn Osborne, | Chronic airway | | 2013 | | PULMONARY [address] | RN | obstruction, not | | | | [employer] [place], | | elsewhere classified | | | | [place] [address] | | ([facility]) | | | | [phone] | | | +--------+ + + + [...] [place] | | | | | | [address] | | | | | | | | +--------+---------+ + + + | 11/24/ | Office | Cardiology | [place], | | | 2019 | Visit | | SINDHU Erickson [address] | | | | | | [place], | | | | | | [place] [address] | | | | | | [phone] | | | | | | | | +--------+---------+ + + + documented as of this encounter Visit Diagnoses + + | Diagnosis | + + | Chronic airway obstruction, not elsewhere classified | + + documented in this encounter"
--- OUTSIDE RECORDS SUMMARY | ~2019-02-28 | XMS | Encounter Summary ---
Demographics + + + | Address | [address] | | | [place] [address] | + + + | Home Phone [...] Team Providers + +------+ + | Care Emery Grinder Name | Role | Phone | + +------+ + | Ozzy Delcid MD | PCP | | + +------+ + Encounter Details +--------+ + + + + | Date | Type | Department | Care Team | Description | +--------+ + + + + | 07/03/ | Hospital | [facility] | [place] | | | 2011 | Encounter | MED CTR EMERGENCY | MD JAMARI [address] | | | | | CENTER [address] | [place] | | | | | [place], [place] | [place] [address] | | | | | [address] | [phone] | | | | | [phone] | | | +--------+ + + + [...] | | | | | | [place] [address] | | | | | | [phone] | | | | | | | [...] Performed At | + + + | [facility] Diagnostic Imaging Department | [facility] | | [address] [facility] | [facility] | | PORTABLE CHEST CLINICAL | DIAG [...] Transcribed Date/Time: 07/05/2011 | | | 10:46 Jig Maker: <Electronically Signed by Cesar Singh | | | MD Mikal> 07/05/11 1343 | | + + + + + | Procedure Note | + + | Reed, Rad Conversion - 04/02/2013 5:18 PM [facility] | | Diagnostic Imaging Department [address] [facility] | | PORTABLE CHEST CLINICAL HISTORY: SHORTNESS [...] 10:29 | |Transcribed Date/Time: 07/05/2011 10:46 | |Jig Maker: | |<Electronically Signed by Cesar Ren MD> [...]
--- OUTSIDE RECORDS SUMMARY | ~2019-02-28 | XMS | Encounter Summary ---
Demographics + + + | Address | [address] | | | [place] [address] | + + + | Home Phone | | + + + | Preferred Language | Unknown | + + + | Marital Status | Single | + + + | Gnosticism Affiliation | [id number] | + + + [...] Team Providers + +------+ + | Care Promotions Coordinator Name | Role | Phone | + +------+ + | Juan Cherry DO | PCP | | + +------+ + Reason for Visit + + + | Reason | Comments | + + + | Bladder Pain | | + + + Encounter Details +--------+ + + + + | Date | Type | Department | Care Team | Description | +--------+ + + + + | 07/09/ | Clinical | [facility] | Andriy Weber | Bladder pain | | 2018 | Support | [address] | MD [address] | (Primary Dx) | | | | [place], [place] | [facility] | | | | | [address] | [place] [address] | | | | | [phone] | [phone] | | | | | | | [...] + documented as of this encounter Progress Loraine Barrett RN - 07/09/2017 8:00 AM PDTPatient presents for DMSO treatment. After sterile prep, 2% lidocaine gel introduced into urethra for comfort and [address] inserted into bladder with 50 cc dark yellow urine drained from bladder. 50 cc DMSO wit h 20 cc 2% lidocaine, 10 cc 8.4% sodium bicarbonate, 40 mg Kenalog, and 10,000 units heparin instilled into bladder via gravity per protocol and Dr. Weber's order. Patient remained i n the office for 20 minutes prior to voiding. After voiding, patient was discharged home an d will return to clinic in 1 week for next treatment. She thinks it's improving her bladder pain. Denies fever. ...........................................Loraine Hawkins RN on 06/24 08/11 at 8:33 documented in this encounter Plan of Treatment +--------+---------+ + + + | Date | Type | Specialty | Care Team | Description | +--------+---------+ + + + | 03/31/ | Office | Pulmonology | Mukul Clark MD | | | 2019 | Visit | | [address] | | | | | | [place] | | | | | | [id number] | | | | | | | | +--------+---------+ + + + | 11/24/ | Office | Cardiology | [place], | | | 2019 | Visit | | SINDHU Erickson [address] | | | | | | [place], | | | | | | [place] [address] | | | | | | [phone] | | | | | | | | +--------+---------+ + + + documented as of this encounter Visit Diagnoses + + | Diagnosis | + + | Bladder pain - Primary Other symptoms involving urinary system | + + documented in this encounter Administered Medications + +--------+ +--------+-------+---------+ | Medication Order | MAR | Action | Dose | Rate | Site | | | Action | Date | | | | + +--------+ +--------+-------+---------+ | sodium bicarbonate 1 mEq/mL | Given | 07/25/19 | 10 mEq | 600 | Bladder | | injection 10 mEq 10 mEq (10 mL), | | 18 10:58 | | mL/hr | | | Other, Administer over 1 | | AM PDT | | | | | Minutes, WEEKLY, First dose on | | | | | | | 06/25/17 at 1230, Part of | | | | | | | bladder cocktail, | | | | | | + +--------+ +--------+-------+---------+ +-------+ +--------+-------+---------+ | Given | 07/10/19 | 10 mEq | 600 | Bladder | | | 18 8:15 | | mL/hr | | | | AM PDT | | | | +-------+ +--------+-------+---------+ | Given | 06/26/19 | 10 mEq | 600 | Bladder | | | 18 11:50 | | mL/hr | | | | AM PDT | | | | +-------+ +--------+-------+---------+ +---+---+ | | | +---+---+ + +-------+ +-------+---+---------+ | triamcinolone acetonide | Given | 07/25/19 | 40 mg | | Bladder | | (KENALOG-40) 40 mg/mL injection | | 18 10:58 | | | | | 40 mg 40 mg, Other, WEEKLY, | | AM PDT | | | | | First dose on Fri06/25/17 at 1230, | | | | | | | Part of bladder cocktail Shake | | | | | | | well. Not for IV use., | | | | | | + +-------+ +-------+---+---------+ +-------+ +-------+---+---------+ | Given | 07/10/19 | 40 mg | | Bladder | | | 18 8:15 | | | | | | AM PDT | | | | +-------+ +-------+---+---------+ | Given | 06/26/19 | 40 mg | | Bladder | | | 18 11:50 | | | | | | AM PDT | | | | +-------+ +-------+---+---------+ +---+---+ | | | +---+---+ +---+ | | +---+ + +--------+ +--------+------+---------+ | Medication Order | MAR | Action | Dose | Rate | Site | | | Action | Date | | | | + +--------+ +--------+------+---------+ | dimethyl sulfoxide (RIMSO-50) | Given | 07/25/19 | 50 mLs | | Bladder | | 50% solution 50 mL 50 mL, | | 18 10:58 | | | | | Bladder Instillation, WEEKLY, | | AM PDT | | | | | First dose on Fri06/25/17 at 1230, | | | | | | | For 4 doses, Part of bladder | | | | | | | cocktail, | | | | | | + +--------+ +--------+------+---------+ +-------+ +--------+---+---------+ | Given | 07/10/19 | 50 mLs | | Bladder | | | 18 8:15 | | | | | | AM PDT | | | | +-------+ +--------+---+---------+ | Given | 06/26/19 | 50 mLs | | Bladder | | | 18 11:50 | | | | | | AM PDT | | | | +-------+ +--------+---+---------+ +---+---+ | | | +---+---+ + +-------+ +---------+---+---------+ | heparin 10,000 units/mL | Given | 07/25/19 | 10,000 | | Bladder | | injection 10,000 Units 10,000 | | 18 10:58 | Units | | | | Units, Irrigation, WEEKLY, First | | AM PDT | | | | | dose on Fri06/25/17 at 1230, For 4 | | | | | | | doses, Part of bladder cocktail, | | | | | | | | | | | | | + +-------+ +---------+---+---------+ +-------+ +---------+---+---------+ | Given | 07/10/19 | 10,000 | | Bladder | | | 18 8:15 | Units | | | | | AM PDT | | | | +-------+ +---------+---+---------+ | Given | 06/26/19 | 10,000 | | Bladder | | | 18 11:50 | Units | | | | | AM PDT | | | | +-------+ +---------+---+---------+ +---+---+ | | | +---+---+ + +-------+ +--------+---+---------+ | lidocaine 2% injection 20 mL | Given | 07/25/19 | 20 mLs | | Bladder | | 20 mL, Other, WEEKLY, First dose | | 18 10:58 | | | | | on 06/25/17 at 1230, For 4 | | AM PDT | | | | | doses, Part of bladder cocktail, | | | | | | + +-------+ +--------+---+---------+ +-------+ +--------+---+---------+ | Given | 07/10/19 | 20 mLs | | Bladder | | | 18 8:15 | | | | | | AM PDT | | | | +-------+ +--------+---+---------+ | Given | 06/26/19 | 20 mLs | | Bladder | | | 18 11:50 | | | | | | AM PDT | | | | +-------+ +--------+---+---------+ +---+---+ | | | +---+---+ documented in this encounter"
--- OUTSIDE RECORDS SUMMARY | ~2019-02-28 | XMS | Encounter Summary ---
Demographics + + + | Address | [address] | | | [place] [address] | + + + | Home Phone [...] Providers + +------+ + | Care Senior Technical Analyst Name | Role | Phone | + +------+ + | Ozzy Delcid MD | PCP | | + +------+ + Encounter Details +--------+ + + + + | Date | Type | Department | Care Team | Description | +--------+ + + + + | 10/14/ | Hospital | [facility] | [place], | | | 2011 | Encounter | MED CTR SLEEP | Loreta Alonso MD | | | | | CENTER [address] | | | | | | [place] | | | | | | [address] | | | | | | [phone] | | | +--------+ + + + [...] [place] | | | | | | [address] | | | | | | | | +--------+---------+ + + + | 11/24/ | Office | Cardiology | [place], | | | 2019 | Visit | | SINDHU Erickson [address] | | | | | | [place], | | | | | | [place] [address] | | | | | | [phone] | | | | | | | | +--------+---------+ + + + documented as of this encounter Visit Diagnoses Not on filedocumented in this encounter"
--- OUTSIDE RECORDS SUMMARY | ~2019-02-28 | XMS | Encounter Summary ---
Demographics + + + | Address | [address] | | | [place] [address] | + + + | Home Phone [...] Providers + +------+ + | Care Maintenance Electrician Name | Role | Phone | + [...] | | | | [facility] | [address] | [address] | | | | | EXERCISE | [place], | [place] | | | | | | [place] [address] | [place], [place] | | | | | | Phone: | [address] | | | | | | [phone] | Phone: | | | | | | Fax: | [phone] | | | | | | [phone] | Fax: | | | | | | | [phone] | +--------+--------+ + + + + Encounter Details +--------+---------+ + + + | Date | Type | Department | Care Team | Description | +--------+---------+ + + + | 07/09/ | Office | [facility] | Jared Mcdonough, | Chronic obstructive | | 2017 | Visit | MED CTR CARDIAC | MD Migdalia King | pulmonary disease, | | | | [facility] [address] [place], | unspecified COPD | | | | [address] [place] | [place] [address] | type (HCC) (Primary | | | | [place] [address] | [phone] | Dx); Pulmonary | | | | [phone] | | emphysema, | | | | [...] [place] | | | | | | [address] | | | | | | | | +--------+---------+ + + + | 11/24/ | Office | Cardiology | [place], | | | 2019 | Visit | | SINDHU Erickson [address] | | | | | | [place], | | | | | | [place] [address] | | | | | | [phone] | | | | | | | | +--------+---------+ + + + documented as of this encounter Visit Diagnoses + + | Diagnosis | + + | Chronic obstructive pulmonary disease, unspecified COPD type (HCC) - Primary | + + | Pulmonary emphysema, unspecified emphysema type (HCC) | + + documented in this encounter"
--- OUTSIDE RECORDS SUMMARY | ~2019-02-28 | XMS | Encounter Summary ---
Demographics + + + | Address | [address] | | | [place] [address] | + + + | Home Phone [...] Team Providers + +------+ + | Care Train Crew Member Name | Role | Phone | + [...] | with brief | [address] | | | | n | loss of | [address] | [place], | | | | | consciousnes | [place], | [place] [address] | | | | | s | [place] [address] | Phone: | | | | | Post-concuss | Phone: | [phone] | | | | | ion vertigo | [phone] | Fax: | | | | | [phone] | Fax: | [phone] | | | | | (ICD-10-CM) | [phone] | | | | | | - [...] +--------+---------+ + + + | 06/18/ | Office | [facility] | Aaron Rodriguez, | Dizziness (Primary | | 2017 | Visit | MED CTR THERAPY PT | MD [address] | Dx); Impaired | | | | OP [address] | [place] | mobility and | | | | [place] | [id number] | activities of daily | | | | [address] | | living; Concussion | | | | [phone] | Lakeshia Cleary, PT | with brief (less | | | | | [address] | than one hour) loss | | | | | [place] | of consciousness; | | | | | [address] | Intractable acute | | | | [...] encounter Progress Notes Lakeshia Barkley, PT - 06/18/2016 11:04 AM PDTFormatting of this note might be different from t he original. [facility] PT OP [address] [place] [address] Physical Therapy Daily Treatment Note Date: 06/18/2016 Patient Information Patient Name: Rosario Malik Date of : 1965 Age: 51 y.o. Encounter Diagnoses Code Name Primary? R42 Dizziness Yes Z74.09 Impaired mobility and activities of daily living S06.0X9A Concussion with brief (less than one hour) loss of consciousness G44.311 Intractable acute post-traumatic headache Date of Onset: 04/02/2016 Referring Provider: Aaron Rodriguez MD # of PT Visits to Date: 5 Start Time: 1100 Stop time: 1130 Duration: 30 minutes Timed Treatment Codes: 30 minutes Rehab Precautions Office Visit from 05/01/2016 in [facility] PT OP Rehab Precautions Precautions None Pain Assessment: Subjective: Pt reports that she is tired today and just finished her cardio/puml. Work out with include d 30 min. On the Bike and 15 min. Of Lifting weights (UE/LE). pt reports she feels that all of her concussion symptoms have resolved but cont. To have s ome imbalance. Goals: Patient Reported Outcome Goals Patient Reported Outcome Goals: PSFS, DHI Patient Specific Functional Scale Goal 1: Improve sensory usage with a M-CTSIB score with n ormal sways in conditions 1-4 Patient Specific Functional Scale Goal 1 Status: 0 Patient Specific Functional Scale Goal 2: Patient will be Independent in a home exercise pr ogram to address symptoms of dizziness/vertigo/imbalance to decrease fall risk and improve a bility to perform ADL's. Patient Specific Functional Scale Goal 2 Status: 8 Objective: At parallel bar with intermittent UE support: -Standing on airex: feet together, semi-tandem, tandem: eyes open/closed with intermittent UE support 3x30 sec each HEP -rocker board: forward and lateral and diagonal: 60 sec x3 each (eyes closed, head turn/nod ): light intermittent UE support -Walking at parallel bar: tandem back, high knees 20 feet x4 laps: Assessment: pt required seated/standing rest breaks due to fatigue; pt is demonstrating good progress i n balance but continues to have low activity tolerance. One more session to review HEP and D C. Next Visit: DC Electronically signed by: Lakeshia Barkley PT, 06/18/2016 11:31 Patient Name: Rosario Malik/: 1965/ documented in [...] [place] | | | | | | [id number] | | | | | | | | +--------+---------+ + + + | 11/24/ | Office | Cardiology | [place], | | | 2019 | Visit | | SINDHU Erickson [address] | | | | | | [place], | | | | | | [place] [address] | | | | | | [phone] | | | | | | | [...]
--- OUTSIDE RECORDS SUMMARY | ~2019-02-28 | XMS | Encounter Summary ---
Demographics + + + | Address | [address] | | | [place] [address] | + + + | Home Phone [...] Team Providers + +------+ + | Care Family Nurse Name | Role | Phone | + +------+ + | Juan Cherry DO | PCP | | + +------+ + Encounter Details +--------+ + + + + | Date | Type | Department | Care Team | Description | +--------+ + + + + | 11/11/ | Abstract | [facility] | [place], | | | 2017 | | CARDIOLOGY [address] | SINDHU Erickson [address] | | | | | [place], | [place], | | | | | [place] [address] | [place] [address] | | | | | [phone] | [phone] | | | | | | | [...] [place] | | | | | | [address] | | | | | | | | +--------+---------+ + + + | 11/24/ | Office | Cardiology | [place], | | | 2019 | Visit | | SINDHU Erickson [address] | | | | | | [place], | | | | | | [place] [address] | | | | | | [phone] | | | | | | | | +--------+---------+ + + + documented as of this encounter Procedures + +--------+ + + + | Procedure Name | Priori | Date/Time | Associated Diagnosis | Comments | | | ty | | | | + +--------+ + + + | EXTERNAL LAB: [facility] | Routin | 11/05/2017 | | Results for this | | | e | | | procedure are in the | | | | | | results section. | + +--------+ + + + | EXTERNAL LAB: | Routin | 11/05/2017 | | Results for this | | GLUCOSE | e | | | procedure are in the | | | | | | results section. | + +--------+ + + + | EXTERNAL LAB: | Routin | 11/05/2017 | | Results for this | | CALCIUM | e | | | procedure are in the | | | | | | results section. | + +--------+ + + + | EXTERNAL LAB: [facility] | Routin | 11/05/2017 | | Results for this | | DIOXIDE | e | | | procedure are in the | | | | | | results section. | + +--------+ + + + | EXTERNAL LAB: | Routin | 11/05/2017 | | Results for this | | CHLORIDE | e | | | procedure are in the | | | | | | results section. | + +--------+ + + + | EXTERNAL LAB: | Routin | 11/05/2017 | | Results for this | | POTASSIUM | e | | | procedure are in the | | | | | | results section. | + +--------+ + + + | EXTERNAL LAB: SODIUM | Routin | 11/05/2017 | | Results for this | | | e | | | procedure are in the | | | | | | results section. | + +--------+ + + + | EXTERNAL LAB: EGFR | Routin | 11/05/2017 | | Results for this | | | e | | | procedure are in the | | | | | | results section. | + +--------+ + + + | EXTERNAL LAB: | Routin | 11/05/2017 | | Results for this | | CREATININE | e | | | procedure are in the | | | | | | results section. | + +--------+ + + + | CBC WITH | Routin | 11/05/2017 | | Results for this | | DIFFERENTIAL | e | | | procedure are in the | | | | | | results section. | + +--------+ + + + | EXTERNAL LAB: CBC | Routin | 06/10/2017 | | Results for this | | | e | | | procedure are in the | | | | | | results section. | + +--------+ + + + | CBC WITH | Routin | 06/10/2017 | | Results for this | | DIFFERENTIAL | e | | | procedure are in the | | | | | | results section. | + +--------+ + + + documented in this encounter Results CBC with Differential (11/05/2017) + +-------+ + + + | Component | Value | Ref Range | Performed | Pathologist | | | | | At | Signature | + +-------+ + + + | Anion Gap | 11 | 3 - 12 mmol/L | | | + +-------+ + + + | Bun/Creatin | 18.75 | | | | | ine | | | | | + +-------+ + + + + + | Specimen | + + | Blood | + + External Lab: BUN (11/05/2017) + +-------+ + + + | Component | Value | Ref Range | Performed | Pathologist | | | | | At | Signature | + +-------+ + + + | BUN, | 9 | 7 - 18 | EXTERNAL | | | External | | | LAB | | + +-------+ + + + + +---------+ + + | Performing | Address | City/State/Zipcode | Phone Number | | Organization | | | | + +---------+ + + | EXTERNAL LAB | | | | + +---------+ + + External Lab: Glucose (11/05/2017) + +---------+ + + + | Component | Value | Ref Range | Performed | Pathologist | | | | | At | Signature | + +---------+ + + + | Glucose, | 108 (A) | 70 - 100 | EXTERNAL | | | External | | | LAB | | + +---------+ + + + + +---------+ + + | Performing | Address | City/State/Zipcode | Phone Number | | Organization | | | | + +---------+ + + | EXTERNAL LAB | | | | + +---------+ + + External Lab: Calcium (11/05/2017) + +-------+ + + + | Component | Value | Ref Range | Performed | Pathologist | | | | | At | Signature | + +-------+ + + + | Calcium, | 8.8 | 8.4 - 10.5 | EXTERNAL | | | External | | | LAB | | + +-------+ + + + + +---------+ + + | Performing | Address | City/State/Zipcode | Phone Number | | Organization | | | | + +---------+ + + | EXTERNAL LAB | | | | + +---------+ + + External Lab: Carbon Dioxide (11/05/2017) + +-------+ + + + | Component | Value | Ref Range | Performed | Pathologist | | | | | At | Signature | + +-------+ + + + | Carbon | 24 | 21 - 32 | EXTERNAL | | | [...] + +---------+ + + External Lab: Chloride (11/05/2017) + +-------+ + + + | Component | Value | Ref Range | Performed | Pathologist | | | | | At | Signature | + +-------+ + + + | Chloride, | 105 | 98 - 107 | EXTERNAL | | | External | | | LAB | | + +-------+ + + + + +---------+ + + | Performing | Address | City/State/Zipcode | Phone Number | | Organization | | | | + +---------+ + + | EXTERNAL LAB | | | | + +---------+ + + External Lab: Potassium (11/05/2017) + +-------+ + + + | Component | Value | Ref Range | Performed | Pathologist | | | | | At | Signature | + +-------+ + + + | Potassium, | 3.8 | 3.6 - 5 | EXTERNAL | | | External | | | LAB | | + +-------+ + + + + +---------+ + + | Performing | Address | City/State/Zipcode | Phone Number | | Organization | | | | + +---------+ + + | EXTERNAL LAB | | | | + +---------+ + + External Lab: Sodium (11/05/2017) + +-------+ + + + | Component | Value | Ref Range | Performed | Pathologist | | | | | At | Signature | + +-------+ + + + | Sodium, | 140 | 135 - 145 | EXTERNAL | | | External | | | LAB | | + +-------+ + + + + +---------+ + + | Performing | Address | City/State/Zipcode | Phone Number | | Organization | | | | + +---------+ + + | EXTERNAL LAB | | | | + +---------+ + + External Lab: eGFR (11/05/2017) + +-------+ + + + | Component [...] + +---------+ + + External Lab: Creatinine (11/05/2017) + +---------+ + + + | Component | Value | Ref Range | Performed | Pathologist | | | | | At | Signature | + +---------+ + + + | Creatinine, | 0.5 (A) | 0.6 - 1.3 | EXTERNAL | [...] | | | + +---------+ + + CBC with Differential (06/10/2017) + +-------+ + + + | Component | Value | Ref Range | Performed | Pathologist | | | | | At | Signature | + +-------+ + + + | MCH | 27.6 | 26.0 - 33.0 pg | | | + +-------+ + + + | MCHC | 33.2 | 31.0 - 36.0 % | | | + +-------+ + + + | MPV | 6.7 | 0.0 - 12.0 fL | | | + +-------+ + + + | % Basophils | 0.9 | 0.0 - 2.5 % | | | + +-------+ + + + + + | Specimen | + + | Blood | + + External Lab: CBC (06/10/2017) + + + + + + | Component | Value | Ref Range | Performed | Pathologist | | | | | At | Signature | + + + + + + | WBC, | 14.0 (A) | 4.3 - 11 | EXTERNAL | | | External | | | LAB | | + + + + + + | HGB, | 13.2 | 12 - 16 | EXTERNAL | | | External | | | LAB | | + + + + + + | HCT, | 39.6 | 38 - 47 | EXTERNAL | | | External | | | LAB | | + + + + + + | PLT, | 507 (A) | 150 - 375 | EXTERNAL | | | External | | | LAB | | + + + + + + | Neutrophils | 68.7 | 37 - 80 | EXTERNAL | | | %, | | | LAB | | | External | | | | | + + + + + + | Lymphocytes | 24.8 | 10 - 50 | EXTERNAL | | | %, | | | LAB | | | External | | | | | + + + + + + | Monocytes | 5.3 | 0 - 12 | EXTERNAL | | | %, External | | | LAB | | + + + + + + | Eosinophils | 0.0 | 0 - 0.7 | EXTERNAL | | | %, | | | LAB | | | External | | | | | + + + + + + | Neutrophils | 9.6 (A) | 2 - 6.9 | EXTERNAL | | | , Absolute, | | | LAB | | | External | | | | | + + + + + + | Lymphocytes | 3.5 (A) | 0.6 - 3.4 | EXTERNAL | | | , Absolute, | | | LAB | | | External | | | | | + + + + + + | Monocytes, | 0.70 | 0 - 0.9 | EXTERNAL | | | Absolute, | | | LAB | | | External | | | | | + + + + + + | Basophils, | 0.1 | 0 - 0.2 | EXTERNAL | | | Absolute | | | LAB | | + + + + + + | RBC, | 4.78 | 4.2 - 5.4 | EXTERNAL | | | External | | | LAB | | + + + + + + | RDW, | 15.2 | 11.6 - 16 | EXTERNAL | | | External | | | LAB | | + + + + + + + +---------+ + + | Performing | Address | City/State/Zipcode | Phone Number | | Organization | | | | + +---------+ + + | EXTERNAL LAB | | | | + +---------+ + + documented in this encounter Visit Diagnoses Not on filedocumented in this encounter"
--- OUTSIDE RECORDS SUMMARY | ~2019-02-28 | XMS | Encounter Summary ---
Demographics + + + | Address | [address] | | | [place] [address] | + + + | Home Phone [...] Team Providers + +------+ + | Care Climate Change Risk Assessor Name | Role | Phone | + +------+ + | Juan Cherry DO | PCP | | + +------+ + Encounter Details +--------+ + + + + | Date | Type | Department | Care Team | Description | +--------+ + + + + | 09/09/ | Hospital | [facility] | Conversion | Pain | | 2015 | Encounter | CONVERSION [address] | Transaction, | | | | | [address] | Provider Unknown | | | | | [place], [place] | [phone] | | | | | [address] | | | | | | [phone] | | | +--------+ + + + [...] | | | | | order to [facility]. | | | | | + + [...] | | | | [place] | | | | | | [id number] | | | | | | | | +--------+---------+ + + + | 11/24/ | Office | Cardiology | [place], | | | 2019 | Visit | | SINDHU Erickson [address] | | | | | | [place], | | | | | | [place] [address] | | | | | | [phone] | | | | | | | [...] + + | Roger Mcbride Maureen - 10/14/2018 2:36 PM PDT This is a non-reportable procedure | | without a radiologist report and isused for image storage only | + + documented in this encounter Visit Diagnoses + + | Diagnosis | + + | Pain Generalized pain | + + documented in this encounter"
--- OUTSIDE RECORDS SUMMARY | ~2019-02-28 | XMS | Encounter Summary ---
Demographics + + + | Address | [address] | | | [place] [address] | + + + | Home Phone [...] Team Providers + +------+ + | Care Accounts Administrator Name | Role | Phone | [...] Description | +--------+--------+ + + + | 11/22/ | Refill | [facility] [place] | [place], | Medication Refill | | 2013 | | PULMONARY [address] | Loreta Alonso MD | | | | | [place], | | | | | | [place] [address] | | | | | | [phone] | | | +--------+--------+ + + + [...] [place], | | | | | | [place] [address] | | | | | | [phone] | | | | | | | | +--------+---------+ + + + documented as of this encounter Visit Diagnoses Not on filedocumented in this encounter"
--- OUTSIDE RECORDS SUMMARY | ~2019-02-28 | XMS | Encounter Summary ---
Demographics + + + | Address | [address] | | | [place] [address] | + + + | Home Phone [...] Team Providers + +------+ + | Care Cdl Program Coordinator Name | Role | Phone | [...] Description | +--------+--------+ + + + | 11/23/ | Refill | [facility] | Kevin Sandoval, | Medication Refill | | 2013 | | PULMONARY [address] | MD [address] | | | | | [place], | [place] | | | | | [place] [address] | [address] | | | | | [phone] | | | +--------+--------+ + + + [...] [place] | | | | | | [address] | | | | | | | | +--------+---------+ + + + | 11/24/ | Office | Cardiology | [place], | | | 2019 | Visit | | SINDHU Erickson [address] | | | | | | [place] | | | | | | [place] [address] | | | | | | [phone] | | | | | | | | +--------+---------+ + + + documented as of this encounter Visit Diagnoses Not on filedocumented in this encounter"
--- OUTSIDE RECORDS SUMMARY | ~2019-02-28 | XMS | Encounter Summary ---
Demographics + + + | Address | [address] | | | [place] [address] | + + + | Home Phone [...] Team Providers + +------+ + | Care River Boat Captain Name | Role | Phone | + [...] + + | 08/14/ | Emergency | [facility] | Sonny Cesar MD | Sinus tachycardia | | 2018 | | MED CTR EMERGENCY | [address] | (Primary Dx) | | | | CENTER [address] | [place] | | | | | [place] | [address] | | | | | [address] | | | | | | [phone] | | | +--------+ + + + [...] | | | | order to [facility]. | | | | | + + [...] | | | send order to [facility] | | | | | | | [facility]. | | | | | [...] | | | | | | [place] [address] | | | | | | [phone] | | | | | | | [...] [address] | [place] | [phone] | | [facility] | | [address] | | | - LABORATORY | | [...] | | | | | | [employer] | | | | | [...] [address] | [place] | [phone] | | [facility] | | [address] | | | - LABORATORY | | [...] [address] | [place] | [phone] | | [facility] | | [address] | | | - LABORATORY | | [...] (L) | 7 - 18 mg/dL | [facility] | | | | | | [facility] | | | | | | MEDICAL | | | | | | CENTER - | | | | | | LABORATORY | | + + + + + + | Creatinine | 0.84 | 0.60 - 1.30 | [facility] | | | | | mg/dL | [facility] | | | | | | MEDICAL | | | | | | CENTER - | | | | | | LABORATORY | | + + + + + + | eGFR if not | >60Comment: GLOMERULAR | >=60 | [facility] | | | | FILTRATION | mL/min/1.73m2 | [facility] | | | [place]IAN | RATE,ESTIMATED | | MEDICAL | | | | mL/min/1.54o4Njgd than | | CENTER - | | [...] [address] | [place] | [phone] | | [facility] | | [address] | | | - LABORATORY | | [...] | | | | | | [facility] | | | | | | MEDICAL [...] | Lymphocytes | | K/uL | [facility] | | | | | | MEDICAL [...] [address] | [place] | [phone] | | [facility] | | [address] | | | - LABORATORY | | [...] | | | | RAFA WELLS MD ([id number]) | | | | | | on [...] 3:01 | | | | | ONCE, [facility] 08/14/17 at 1500, For 1 | | [...]
--- OUTSIDE RECORDS SUMMARY | ~2019-02-28 | XMS | Encounter Summary ---
Demographics + + + | Address | [address] | | | [place] [address] | + + + | Home Phone [...] Team Providers + +------+ + | Care Longitudinal Float Operator Name | Role | Phone | [...] | +--------+ + + + + | 07/25/ | Documentati | [facility] | Kathi Soto, | No Show | | 2017 | on | MED CTR SPEECH | Speech Pathologist | | | | | THERAPY [address] | | | | | | [place], | | | | | | [place] [address] | | | | | | [phone] | | | +--------+ + + + [...] Progress Notes Kathi Soto, Speech Pathologist - 07/25/2016 1:58 PM [facility] [address] [place] [address] Cancellation/No Show Date: 07/25/2016 Patient Information Patient Name: Rosario Malik Date of : 1965 Age: 51 y.o. Reason for missed visit:Pt is sick with migraine Phone call placed: yes - called to cancel same day. Plan: Continue POC at next scheduled visit Electronically signed by: Kathi Soto Speech Pathologist, 07/25/2016 13:58 Patient Name: Rosario Malik/: 1965/ docum ented in this encounter Plan of Treatment +--------+---------+ + + + | Date | Type | Specialty | Care Team | Description | +--------+---------+ + + + | 03/31/ | Office | Pulmonology | Mukul Clark MD | | | 2019 | Visit | | [address] | | | | | | [place] | | | | | | [address] | | | | | | | | +--------+---------+ + + + | 11/24/ | Office | Cardiology | [place] | | | 2019 | Visit | | SINDHU Erickson [address] | | | | | | [place] | | | | | | [place] [address] | | | | | | [phone] | | | | | | | | +--------+---------+ + + + documented as of this encounter Visit Diagnoses Not on filedocumented in this encounter"
--- OUTSIDE RECORDS SUMMARY | ~2019-02-28 | XMS | Encounter Summary ---
Demographics + + + | Address | [address] | | | [place] [address] | + + + | Home Phone [...] Providers + +------+ + | Care Belt Conveyor Drier Name | Role | Phone | + +------+ + | Juan Cherry DO | PCP | | + +------+ + Encounter Details +--------+ + + + + | Date | Type | Department | Care Team | Description | +--------+ + + + + | 09/04/ | Orders Only | [facility] [place] | [place], | Paroxysmal atrial | | 2016 | | CARDIOLOGY [address] | Georgina PRODUCT RESPONSIBILITY LIAISON [address] | tachycardia (HCC) | | | | [place], | [place], | | | | | [place] [address] | [place] [address] | | | | | [phone] | | | | | | | [...] [place] | | | | | | [address] | | | | | | | | +--------+---------+ + + + | 11/24/ | Office | Cardiology | [place], | | | 2019 | Visit | | SINDHU Erickson [address] | | | | | | [place], | | | | | | [place] [address] | | | | | | [phone] | | | | | | | | +--------+---------+ + + + documented as of this encounter Visit Diagnoses + + | Diagnosis | + + | Paroxysmal atrial tachycardia (HCC) Paroxysmal supraventricular tachycardia | + + documented in this encounter"
--- OUTSIDE RECORDS SUMMARY | ~2019-02-28 | XMS | Encounter Summary ---
Demographics + + + | Address | [address] | | | [place] [address] | + + + | Home Phone [...] Team Providers + +------+ + | Care Establishment Guide Name | Role | Phone | + [...] | RN | | | | | [place], | | | | | | [place] [address] | | | | | | [phone] | | | +--------+ + + + [...] | | | | [place] | | | | | | [address] | | | | | | | | +--------+---------+ + + + | 11/24/ | Office | Cardiology | [place], | | | 2019 | Visit | | SINDHU Erickson [address] | | | | | | [place], | | | | | | [place] [address] | | | | | | [phone] | | | | | | | | +--------+---------+ + + + documented as of this encounter Visit Diagnoses Not on filedocumented in this encounter"
--- OUTSIDE RECORDS SUMMARY | ~2019-02-28 | XMS | Encounter Summary ---
Demographics + + + | Address | [address] | | | [place] [address] | + + + | Home Phone [...] Team Providers + +------+ + | Care Pest Control Service Sales Agent Name | Role | Phone | [...] + + | 06/17/ | Telephone | [facility] | [place], | Other | | 2018 | | CARDIOLOGY [address] | Georgina CHEMISTRY INSTRUCTOR [address] | | | | | [place], | [place], | | | | | [place] [address] | [place] [address] | | | | | [phone] | | | | | | | [...] | 03/31/ | Office | Pulmonology | Muklu Clark MD | | | 2019 | Visit | | [address] | | | | | | [place] | | | | | | [address] | | | | | | | | +--------+---------+ + + + | 11/24/ | Office | Cardiology | [place], | | | 2019 | Visit | | SINDHU Erickson [address] | | | | | | [place], | | | | | | [place] [address] | | | | | | [phone] | | | | | | | [...]
--- OUTSIDE RECORDS SUMMARY | ~2019-02-28 | XMS | Encounter Summary ---
Demographics + + + | Address | [address] | | | [place] [address] | + + + | Home Phone [...] | + + +---------+ + | Vahe Kahn | ECON | Unknown | | + + +---------+ + Care Team Providers + +------+ + | Care Swing Manager Name | Role | Phone | [...] + + | 10/22/ | Office | [facility] | Andriy Weber | Interstitial | | 2015 | Visit | [address] | MD [address] | cystitis (Primary | | | | [place] | [place] | Dx); Pyuria | | | | [address] | [place] [address] | | | | | [phone] | | | | | | | [...] Action Dose Route Administered By 10/23/2015 Given 02261 Units Subcutaneous Marysol Nunes RN lidocaine 2% [...] [place] | | | | | | [address] | | | | | | | | +--------+---------+ + + + | 11/24/ | Office | Cardiology | [place], | | | 2019 | Visit | | SINDHU Erickson [address] | | | | | | [place], | | | | | | [place] [address] | | | | | | [phone] | | | | | | | [...] + | [facility] | [address] | [place] | [phone] | | [facility] | | [address] | | | - LABORATORY | | [...] [address] | [place] | [phone] | | [facility] | | [address] | | | - LABORATORY | | [...] 1.001 - 1.030 | | | | [place], | | | | | | [facility], [...]
--- OUTSIDE RECORDS SUMMARY | ~2019-02-28 | XMS | Encounter Summary ---
Demographics + + + | Address | [address] | | | [place] [address] | + + + | Home Phone [...] Team Providers + +------+ + | Care Mental Health Specialist Name | Role | Phone | [...] [address] | Loreta Alonso MD | ([facility]) (Primary Dx); | | | | [place], | | GARRY on CPAP; Tobacco | | | | [place] [address] | | abuse | | | | [phone] | | | +--------+---------+ + + + [...] done after today. She is moving to [place] in August. 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 Please send order to [facility]. This is not a new [...] 02/24/2011 Tdap 01/22/2008 Dates: 05/11/12-08/08/12 Machine type: [employer]: [employer] CPAP Pressure: 13 cmH2O AHI: 6.1 events/hour [...] try switching her back to auto at 11-30stF91. Th raven are not typically central apneas, [...] for 10 days. 2.Change CPAP pressure to 11-43ysO3C. 3.Work on smoking cessation. 4.Bring download to next visit. She was advised to call if new pulmonary symptoms were to develop. Return to clinic in 4 weeks, or sooner with concerns. CC: Juan Cherry Portions of this report were transcribed using voice recognition software. Every effort wa s made to ensure accuracy; however, inadvertent computerized data management specialist errors may be pre sent. documented in [...] [place] | | | | | | [address] | | | | | | | | +--------+---------+ + + + | 11/24/ | Office | Cardiology | [place], | | | 2020 | Visit | | SINDHU Erickson [address] | | | | | | [place], | | | | | | [place] [address] | | | | | | [phone] | | | | | | | [...]
--- OUTSIDE RECORDS SUMMARY | ~2019-02-28 | XMS | Encounter Summary ---
Demographics + + + | Address | [address] | | | [place] [address] | + + + | Home Phone [...] Team Providers + +------+ + | Care Practice Nurse Name | Role | Phone | + +------+ + PCP | Unavailable | + +------+ + Encounter Details +--------+ + + + + | Date | Type | Department | Care Team | Description | +--------+ + + + + | 01/24/ | Hospital | [facility] | Avi Guru Garzon, | | | 2009 | Encounter | MED CTR EMERGENCY | MD [address] | | | | | CENTER [address] | [facility] [place] | | | | | [place], [place] | [place] [address] | | | | | [address] | [phone] | | | | | [phone] | | | +--------+ + + + [...] [place] | | | | | | [address] | | | | | | | | +--------+---------+ + + + | 11/24/ | Office | Cardiology | [place], | | | 2020 | Visit | | SINDHU Erickson [address] | | | | | | [place], | | | | | | [place] [address] | | | | | | [phone] | | | | | | | | +--------+---------+ + + + documented as of this encounter Visit Diagnoses Not on filedocumented in this encounter"
--- OUTSIDE RECORDS SUMMARY | ~2019-02-28 | XMS | Encounter Summary ---
Demographics + + + | Address | [address] | | | [place] [address] | + + + | Home Phone [...] Team Providers + +------+ + | Care Hourly Manager Name | Role | Phone | [...] + + | 07/24/ | Office | [facility] | [place], | Palpitations | | 2018 | Visit | CARDIOLOGY [address] | SINDHU Erickson [address] | (Primary Dx); | | | | [place], | [place], | Paroxysmal atrial | | | | [place] [address] | [place] [address] | tachycardia (HCC); | | | | [phone] | [phone] | Other migraine | | | | [...] takes this da rigoberto Respiratory Therapy Supplies [facility] Please provide patient with necessary CPAP supplies ( she did not specify, okay to send order as appropriate) Diagnosis Code(s)327.23 . Length of Need 99 months. Please send order to [facility]. 1 each 0 Respiratory Therapy Supplies [facility] Change CPAP back to 11-14 cm H2O. All necessary suppl ies. No oxygen bleed in. Diagnosis Code(s)327.23. Length of Need: Lifetime. Please send orde r to [facility]. This is not a new [...] Other Weekly Yinka Melendez 10 mEq at 07/09/17814 triamcinolone acetonide (KENALOG-40) 40 mg/mL injection 40 [...] has lengthened Confirmed by CLAY MCDONOUGH MD ([id number]) on 05/06/2017 4:53:06 PM LAB RESULTS reviewed during visit today primarily from [facility]: LIPID Lab Results Component Value Date CHOLHDL [...] 417 (A) 03/18/2017 I reviewed records from [facility] for office visit on 04/2017 whic h [...] and v entricular function done at the [facility]. LVEF 78%. C. Holter Monitor [...] 09/05/15, shows underlying normal sinus rhythm wi rate 42-107 BPM, average rate 56, there [...] with symptoms noted except for tachycardia when patie nt mowed the lawn, by Clay Mcdonough MD. H. patient today complains of palpitations, tiredness and fatigue and diaphoresis. She ledezma s been active by doing chores around her house and gardening. She denies any syncope or srinivas r syncope episodes. She is in class II of the [employer] functional class. There are no [...] She was seen at the ED of [facility] 3 weeks ago and again [...] is in a class I-II o f [employer] functional class. There is no [...] this chart may have been created with [employer] voice recognition software. Occasi onal wrong-word or [...] [place] | | | | | | [address] | | | | | | | | +--------+---------+ + + + | 11/24/ | Office | Cardiology | [place], | | | 2019 | Visit | | SINDHU Erickson [address] | | | | | | [place] | | | | | | [place] [address] | | | | | | [phone] | | | | | | | [...]
--- OUTSIDE RECORDS SUMMARY | ~2019-02-28 | XMS | Encounter Summary ---
Demographics + + + | Address | [address] | | | [place] [address] | + + + | Home Phone [...] Team Providers + +------+ + | Care Hammer Shop Supervisor Name | Role | Phone | [...] | | MD Jared | [address] | | | | | Pericarditis | [address] | [place], | | | | | Procedures | [address] | [place] | | | | | ECHO | [place], | [address] | | | | | Complete | [place] [address] | Phone: | | | | | | Phone: | [phone] | | | | | | [phone] | Fax: | | | | | | Fax: | [phone] | | | | | | [phone] | | +--------+--------+ + + + + [...] | | MD Jared | [address] | | | | | Pericarditis | [address] | [place], | | | | | Procedures | [address] | [place] | | | | | ECHO | [place], | [address] | | | | | Complete | [place] [address] | Phone: | | | | | | Phone: | [phone] | | | | | | [phone] | Fax: | | | | | | Fax: | [phone] | | | | | | [phone] | | +--------+--------+ + + + + Encounter Details +--------+ + + + + | Date | Type | Department | Care Team | Description | +--------+ + + + + | 01/14/ | Hospital | [facility] | Jared Mcdonough, | Pericarditis | | 2013 | Encounter | MED CTR ECHO [address] | [address] | | | | | [place] | [place], | | | | | [place] [address] | [place] [address] | | | | | [phone] | [phone] | | | | | | | [...] | | order to [facility]. | | | | | + [...] | | | | send order to [facility] | | | | | | | [facility]. | | | | | | [...] | | | | | | [place] [address] | | | | | | [phone] | | | | | | | [...] Performed At | + + + | [facility] ECHOCARDIOGRAM REPORT | [place] | | STUDY DATE: 01/14/2014 PATIENT NAME: Rosario Malik | [facility] | | : 1965 PCP: Juan Cherry, [facility] | | CLINICAL HISTORY/DIAGNOSIS: Pericarditis/pericardial effusion A [...] by: | | | Jared Mcdonough MD [facility] 01/14/2014 8:40 Ob Tech: | | | Charmaine Ibarra RDMS | | + + + + + | Procedure Note | + + | Jared Mcdonough MD - 01/14/2014 11:28 AM [facility] | | CENTERECHOCARDIOGRAM REPORTSTUDY DATE: 01/14/2014PATIENT NAME: Rosario AyersOB: | | 1965MRN: [id number]: EFREN GuillaumeLINICAL HISTORY/DIAGNOSIS: | | Pericarditis/pericardial effusionA [...] | mmHgLA volume: 30 mLLA index: 18 mL/i9Wcpuab Inflow DT: 262 msIVRT: 75 msValsalva: | | NegativePWDTI S wave: 8.7 cm/sPWDTI E wave: 9.0 cm/sPWDTI A wave: 11.5 cm/sE/A Ratio: | | 0.783E/E Ratio: 8.95Signed by: Jared Mcdonough MD [facility] 01/14/2014 8:40 | | Ob Tech: Charmaine Ibarra RDMS | | | | [...] | | |Signed by: Jared Mcdonough MD [facility] | | 01/14/2014 8:40 | | | | | |Ob Tech: Charmaine Ibarra RDMS | + + + + + + + | Performing | Address | City/State/Zipcode | Phone Number | | Organization | | | | + + + + + | [address] | [address] | [place] | [phone] | | [facility] | | [address] | | | - IMAGING | | [...]
--- OUTSIDE RECORDS SUMMARY | ~2019-02-28 | XMS | Encounter Summary ---
Demographics + + + | Address | [address] | | | [place] [address] | + + + | Home Phone [...] Providers + +------+ + | Care Manager Etl Name | Role | Phone | + [...] + | 06/11/ | Telephone | [facility] | Andriy Weber | Appointment | | 2018 | | [address] | [address] | | | | | [place] | [address] [facility] | | | | | [address] | [place] [address] | | | | | [phone] | [phone] | | | | | | | [...] [place] | | | | | | [address] | | | | | | | | +--------+---------+ + + + | 11/24/ | Office | Cardiology | [place], | | | 2019 | Visit | | SINDHU Erickson [address] | | | | | | [place] | | | | | | [place] [address] | | | | | | [phone] | | | | | | | | +--------+---------+ + + + documented as of this encounter Visit Diagnoses Not on filedocumented in this encounter"
--- OUTSIDE RECORDS SUMMARY | ~2019-02-28 | XMS | Encounter Summary ---
Demographics + + + | Address | [address] | | | [place] [address] | + + + | Home Phone [...] Team Providers + +------+ + | Care Lump Inspector Name | Role | Phone | [...] | | [place] | [address] [facility] | | | | | [address] | [place] [address] | | | | | [phone] | [phone] | | | | | | | [...] DR | | | | | | [place] | | | | | | [address] | | | | | | | | +--------+---------+ + + + | 11/24/ | Office | Cardiology | [place], | | | 2019 | Visit | | SINDHU Erickson [address] | | | | | | [place], | | | | | | [place] [address] | | | | | | [phone] | | | | | | | [...] 1.001 - 1.030 | | | | [place], | | | | | | [facility], [...]
--- OUTSIDE RECORDS SUMMARY | ~2019-02-28 | XMS | Encounter Summary ---
Demographics + + + | Address | [address] | | | [place] [address] | + + + | Home Phone | | + + + | Preferred Language | Unknown | + + + | Marital Status | Single | + + + | Baptism Affiliation | 1041 | + + + | Race | Unknown | + + + | Ethnic Group | Unknown | + + + Author + + + | Author | [facility] | | | and [place] | + + + | Organization | [facility] | | [...] Team Providers + +------+ + | Care Track Helper Name | Role | Phone | + +------+ + | Juan Cherry DO | PCP | | + +------+ + Encounter Details +--------+ + + + + | Date | Type | Department | Care Team | Description | +--------+ + + + + | 11/08/ | Hospital | [facility] | Conversion | Asthma, moderate | | 2015 | Encounter | [facility] [address] | Transaction, | persistent, | | | | [address] | Provider Unknown | uncomplicated | | | | [place], [place] | [phone] | | | | | [address] | | | | | | [phone] | | | +--------+ + + + [...] | | | order to [facility]. | | | | | + + [...] | | | | | | | [facility]. | | | | | | [...] | | | | | ([facility]) | | | | | [...] [place] | | | | | | [address] | | | | | | | | +--------+---------+ + + + | 11/24/ | Office | Cardiology | [place] | | | 2019 | Visit | | SINDHU Erickson [address] | | | | | | [place], | | | | | | [place] [address] | | | | | | [phone] | | | | | | | | +--------+---------+ + + + documented as of this encounter Procedures + +--------+ + + + | Procedure Name | Priori | Date/Time | Associated Diagnosis | Comments | | | ty | | | | + +--------+ + + + | CT CHEST WO CONTRAST | Routin | 11/08/2014 | | Results for this | | | e | 11:04 AM | | procedure are in the | | | | PDT | | results section. | + +--------+ + + + documented in this encounter Results CT Chest wo Contrast (11/08/2014 11:04 AM PDT) + + | Specimen | + + | | + + + + + | Impressions | Performed At | + + + | 1. Multiple pulmonary lung nodules measuring 4 mm or less in size | | | which are unchanged for one year. In a low-risk patient no further | | | follow-up is needed. In a high-risk patient follow-up low-dose | | | noncontrast CT of the chest in 12 months. | | + + + + + + | Narrative | Performed At | + + + | JADYN SCHMITZ [address] CHEST WO CONTRAST | | | 11/08/2014 11:04 AM HISTORY: Pulmonary lung nodule. | | | COMPARISON: November 16, 2013 TECHNIQUE: CT scan of the chest | | | without contrast. 5-mm thick helically acquired axial images were | | | obtained in soft tissue and lung algorithm. FINDINGS: Right | | | upper lobe pulmonary lung nodule measuring 3 mm in diameter is | | | unchanged from the prior exam. (2/12) calcified pulmonary lung nodule | | | of the right upper lobe (2/18) measuring 2 mm is unchanged. 4 mm | | | pulmonary lung nodule (2/33) is similar to the prior examination. | | | Left upper lobe pulmonary lung nodule measuring 4 mm in diameter | | | (2/26) is unchanged. No lung consolidation. No pneumothorax. | | | Surgical clips within the epigastrium from prior distal | | | gastroesophageal junction surgery, likely a Chanelle fundoplication. | | | No acute abnormality of the visualized portions of the upper abdomen. | | | No acute osseous abnormality. | | + + + + + | Procedure Note | + + | Reed, Rad Conversion - 10/09/2018 12:59 AM DODIE SCHMITZ years | | FemaleCT CHEST WO CONTRAST11/08/2014 11:04 AM HISTORY: Pulmonary lung nodule. COMPARISON: | | November 16, 2013 TECHNIQUE: CT scan of the chest without contrast. 5-mm thick | | helically acquired axial images were obtained in soft tissue and lung algorithm. | | FINDINGS: Right upper lobe pulmonary lung nodule measuring 3 mm in diameter is unchanged | | from the prior exam. (2/12) calcified pulmonary lung nodule of the right upper lobe | | (2/18) measuring 2 mm is unchanged. 4 mm pulmonary lung nodule (2/33) is similar to the | | prior examination. Left upper lobe pulmonary lung nodule measuring 4 mm in diameter | | (2/26) is unchanged. No lung consolidation. No pneumothorax. Surgical clips within the | | epigastrium from prior distal gastroesophageal junction surgery, likely a Chanelle | | fundoplication. No acute abnormality of the visualized portions of the upper abdomen. No | | acute osseous abnormality. IMPRESSION: 1. Multiple pulmonary lung nodules measuring 4 | | mm or less in size which are unchanged for one year. In a low-risk patient no further | | follow-up is needed. In a high-risk patient follow-up low-dose noncontrast CT of the | | chest in 12 months. | |prior examination. Left upper lobe pulmonary lung nodule measuring 4 mm in diameter (2/) is unchanged. | | | |No lung consolidation. No pneumothorax. | | | |Surgical clips within the epigastrium from prior distal gastroesophageal junction surgery, likely a Chanelle fundoplication. | | | |No acute abnormality of the visualized portions of the upper abdomen. | | | |No acute osseous abnormality. | | | |IMPRESSION: | |1. Multiple pulmonary lung nodules measuring 4 mm or less in size which are unchanged for one year. In a low-risk patient no further follow-up is needed. In a high-risk patient follo w-up low-dose noncontrast CT of the chest in 12 months. | | | | | + + documented in this encounter Visit Diagnoses + + | Diagnosis | + + | Asthma, moderate persistent, uncomplicated | + + documented in this encounter"
--- OUTSIDE RECORDS SUMMARY | ~2019-02-28 | XMS | Encounter Summary ---
Demographics + + + | Address | [address] | | | [place] [address] | + + + | Home Phone [...] Team Providers + +------+ + | Care Glassware Maker Name | Role | Phone | [...] | (Primary Dx) | | | | [place], | [address] | | | | | [place] [address] | | | | | | [phone] | | | +--------+ + + + [...] [place] | | | | | | [address] | | | | | | | | +--------+---------+ + + + | 11/24/ | Office | Cardiology | [place], | | | 2019 | Visit | | SINDHU Erickson [address] | | | | | | [place], | | | | | | [place] [address] | | | | | | [phone] | | | | | | | [...]
--- OUTSIDE RECORDS SUMMARY | ~2019-02-28 | XMS | Encounter Summary ---
Demographics + + + | Address | [address] | | | [place] [address] | + + + | Home Phone [...] Team Providers + +------+ + | Care Congressional Representative Name | Role | Phone | [...] [address] | | | | | [place], | [place], | | | | | [place] [address] | [place] [address] | | | | | [phone] | [phone] | | | | | | | [...] | | | | | | [place] [address] | | | | | | [phone] | | | | | | | | +--------+---------+ + + + documented as of this encounter Visit Diagnoses Not on filedocumented in this encounter"
--- OUTSIDE RECORDS SUMMARY | ~2019-02-28 | XMS | Encounter Summary ---
Demographics + + + | Address | [address] | | | [place] [address] | + + + | Home Phone [...] Providers + +------+ + | Care Software Engineering Associate Manager Name | Role | Phone | + +------+ + | Juan Cherry DO | PCP | | + +------+ + Encounter Details +--------+ + + + + | Date | Type | Department | Care Team | Description | +--------+ + + + + | 04/02/ | Hospital | [facility] | Dio Yun | | | 2017 | Encounter | MED CTR NUCLEAR | MD Jesus [address] | | | | | MEDICINE [address] | [place] [address] | | | | | [place], | [place], [place] | | | | | [place] [address] | [address] | | | | | [phone] | [phone] | | | | | | | [...] | | | | send order to [facility] | | | | | | | [facility]. | | | | | | [...] | | | | | ([facility]) | | | | | [...] | 0 | 10/13/19 | | | Auqkyqdmit-OXWP-Nrdd | mouth as needed. | | | 16 | 7 | | -Cod [id number] MG | | | | | | [...] | | | | | ([facility]) | | | | | [...] | | | | | | [place] [address] | | | | | | [phone] | | | | | | | [...] + + | Performing | Address | City/State/[facility] | Phone Number | | Organization | | | | + +---------+ + + | [facility] | | | | + +---------+ + + documented in this encounter Visit Diagnoses Not on filedocumented in this encounter
--- OUTSIDE RECORDS SUMMARY | ~2019-02-28 | XMS | Encounter Summary ---
Demographics + + + | Address | [address] | | | [place] [address] | + + + | Home Phone [...] Team Providers + +------+ + | Care Warehousing Technician Name | Role | Phone | [...] | RN | | | | | [place], | | | | | | [place] [address] | | | | | | [phone] | | | +--------+ + + + [...] [place] | | | | | | [address] | | | | | | | | +--------+---------+ + + + | 11/24/ | Office | Cardiology | [place], | | | 2020 | Visit | | SINDHU Erickson [address] | | | | | | [place], | | | | | | [place] [address] | | | | | | [phone] | | | | | | | | +--------+---------+ + + + documented as of this encounter Visit Diagnoses Not on filedocumented in this encounter"
--- OUTSIDE RECORDS SUMMARY | ~2019-02-28 | XMS | Encounter Summary ---
Demographics + + + | Address | [address] | | | [place] [address] | + + + | Home Phone [...] Providers + +------+ + | Care Senior Architect Name | Role | Phone | [...] [place], | | | | | | [place] [address] | | | | | | [phone] | | | +--------+ + + + [...] Speech Pathologist - 05/30/2016 1[facility]32 PM [facility] [address] [place] [address] Cancellation/No Show Date: 05/30/2016 Patient Information Patient Name: Rosario Malik Date of : 1965 Age: 51 y.o. Reason for missed visit: Cancellation- NO cryptanalyst Phone call placed: yes - pt called [...] [place] | | | | | | [id number] | | | | | | | | +--------+---------+ + + + | 11/24/ | Office | Cardiology | [place] | | | 2019 | Visit | | SINDHU Erickson [address] | | | | | | [place] | | | | | | [place] [address] | | | | | | [phone] | | | | | | | | +--------+---------+ + + + documented as of this encounter Visit Diagnoses Not on filedocumented in this encounter"
--- OUTSIDE RECORDS SUMMARY | ~2019-02-28 | XMS | Encounter Summary ---
Demographics + + + | Address | [address] | | | [place] [address] | + + + | Home Phone | | + + + | Preferred Language | Unknown | + + + | Marital Status | Single | + + + | Jewish Affiliation | 1041 | + + + | Race | Unknown | + + + | Ethnic Group | Unknown | + + + Author + + + | Author | [facility] | | | and [place] | + + + | Organization | [facility] | | [...] Team Providers + +------+ + | Care Pharmacy Care Coordinator Name | Role | Phone | + +------+ + | Juan Cherry DO | PCP | | + +------+ + Encounter Details +--------+ + + + + | Date | Type | Department | Care Team | Description | +--------+ + + + + | 11/21/ | Hospital | [facility] | Andriy Weber | Interstitial | | 2016 | Encounter | MED CTR OR INTRA OP | MD [address] | cystitis (chronic) | | | | [address] | [facility] | without hematuria | | | | [place], [place] | [place] [address] | (Primary Dx) | | | | [address] | [phone] | | | | | [phone] | | | +--------+ + + + [...] (the anesthesiologist will discuss these with you) 5732-[address] [employer] [place] [address]. All righ ts reserved. This information is [...] | | | | | order to [facility]. | | | | | [...] | | | | send order to [facility] | | | | | | | [facility] [place] [facility]. | | | | | | | [...] | | | | | | | ([facility]) | | | | | [...] | 0 | 10/13/19 | | | Decqizgpvd-PPZF-Mogx | mouth as needed. | | | 16 | 7 | | -Cod [id number] MG | | | | | | [...] | | | | | | | ([facility]) | | | | | [...] | | | | | [address] [facility] [place] | | | | | | [address] | | | | | | | | +--------+---------+ + + + | 11/24/ | Office | Cardiology | [place], | | | 2019 | Visit | | SINDHU Erickson [address] | | | | | | [place], | | | | | | [place] [address] | | | | | | [phone] | | | | | | | [...] [address] | [place] | [phone] | | [facility] | | [address] | | | - LABORATORY | | [...] mild chronic mucosal | | | inflammation. JVR:cox north:C2NR GROSS DESCRIPTION: The specimen is | | [...] 0.3 x 0.3 cm, all into (C1). yt:CLR:cox north | | | MICROSCOPIC EXAMINATION: Histologic sections of all submitted blocks | | | are examined by light microscopy. These findings, together with the | | | gross examination, support the pathologic diagnosis. PERFORMING | | | LABORATORY: Tissue processing and slide preparation were performed by | | | [employer], [address], [place] [address] | | | (Lens Fabricating Machine Tender: Kale Estrella M.D.; CLIA#: [id number]). | | | Professional interpretation was performed by [employer], | | | [facility], [address] [facility] | | | [place] [address] (Lens Fabricating Machine Tender: Kale Estrella M.D.; CLIA#: | | | [id number]). Diagnostician: Kale Estrella MD Pathologist | | [...] | | | | | | use Raymond 10/325 if ordered. If | | | [...]
--- OUTSIDE RECORDS SUMMARY | ~2019-02-28 | XMS | Encounter Summary ---
Demographics + + + | Address | [address] | | | [place] [address] | + + + | Home Phone [...] Providers + +------+ + | Care Maintenance Service Dispatcher Name | Role | Phone | [...] + + + | | | | | | | +--------+--------+ + + + + Encounter Details +--------+ + + + + | Date | Type | Department | Care Team | Description | +--------+ + + + + | 06/23/ | Hospital | [facility] | [place], | Racing heart beat | | 2018 | Encounter | MED CTR NUCLEAR | SINDHU Erickson [address] | | | | | MEDICINE [address] | [place], | | | | | [place], | [place] [address] | | | | | [place] [address] | [phone] | | | | | [phone] | | | +--------+ + + + [...] | | | | | [facility]. | | | | | | [...] tablet by | 30 | 0 | 05/09/19 | | | hydrochloride | mouth nightly. | tablet | | 18 | 8 | | (ATARAX) 25 mg | | [...] + + + +---------+ + + | methylPREDNISolone | Follow package | 21 | 0 | 04/06/20 | | | (MEDROL DOSEPAK) 4 | directions. | tablet | | 18 | 8 | | mg | | | | | | | tabletIndications: | | | | | | | Acute pain of right | | | | | | | wrist | | | | | | + [...] +---------+ + + | oxybutynin | TAKE 1 TABLET BY | 60 | 0 | 06/24/19 | | | (DITROPAN) 5 mg | MOUTH TWICE DAILY | tablet | | 18 | 8 | | tablet | | | | | | + + + +---------+ + + | pantoprazole | take 1 tablet by | 90 | 1 | 12/31/19 | | | (PROTONIX) 40 mg | mouth every morning | tablet | | 17 | 8 | | tablet | before breakfast. | | | | | + + [...] [place] | | | | | | [address] | | | | | | | | +--------+---------+ + + + | 11/24/ | Office | Cardiology | [place], | | | 2019 | Visit | | SINDHU Erickson [address] | | | | | | [place], | | | | | | [place] [address] | | | | | | [phone] | | | | | | | | +--------+---------+ + + + documented as of this encounter Visit Diagnoses + + | Diagnosis | + + | Racing heart beat Tachycardia, unspecified | + + documented in this encounter"
--- OUTSIDE RECORDS SUMMARY | ~2019-02-28 | XMS | Encounter Summary ---
Demographics + + + | Address | [address] | | | [place] [address] | + + + | Home Phone [...] Providers + +------+ + | Care Door Repairman Name | Role | Phone | + +------+ + | Juan Cherry DO | PCP | | + +------+ + Encounter Details +--------+ + + + + | Date | Type | Department | Care Team | Description | +--------+ + + + + | 07/18/ | Documentati | [facility] | Georges, | | | 2017 | on | MED CTR SPEECH | Cesia Honeycutt, Speech | | | | | THERAPY [address] | Pathologist [address] | | | | | [place], | [address] [place] | | | | | [place] [address] | [place] [address] | | | | | [phone] | [phone] | | | | | | | [...] + documented as of this encounter Progress Cesia Bolton Speech Pathologist - 07/18/2016 10:08 [facility] [address] [facility] [address] Cancellation/No Show Date: 07/18/2016 Patient Information Patient Name: Rosario Malik Date of : 1965 Age: 51 y.o. Reason for missed visit:Pt is sick Phone call placed: yes - called to cancel Plan: Continue POC at next scheduled visit Electronically signed by: Cesia Su Speech Pathologist, 07/18/2016 10:08 Patient Name: Rosario Malik/: 1965/ Tdocumented in this encounter Plan of Treatment [...] [place] | | | | | | [id number] | | | | | | | | +--------+---------+ + + + | 11/24/ | Office | Cardiology | [place] | | | 2019 | Visit | | SINDHU Erickson [address] | | | | | | [place] | | | | | | [place] [address] | | | | | | [phone] | | | | | | | | +--------+---------+ + + + documented as of this encounter Visit Diagnoses Not on filedocumented in this encounter"
--- OUTSIDE RECORDS SUMMARY | ~2019-02-28 | XMS | Encounter Summary ---
Demographics + + + | Address | [address] | | | [place] [address] | + + + | Home Phone [...] Team Providers + +------+ + | Care Bun Panner Name | Role | Phone | + [...] | Concussion | Aaron Kim MD | City Planning Teacher [address] | | | Required | | with brief | [address] | [place] | | | | | loss of | [address] | [place], [place] | | | | | consciousnes | [place], | [address] | | | | | s Word | [place] [address] | Phone: | | | | | finding | Phone: | [phone] | | | | | difficulty | [phone] | Fax: | | | | | [phone] | Fax: | [phone] | | | | | (ICD-10-CM) | [phone] | | | | | | - [...] + + | 08/14/ | Hospital | [facility] | Aaron Rodriguez, | Concussion with | | 2017 | Encounter | MED CTR SPEECH | MD [address] | brief (less than one | | | | THERAPY [address] | [place], [place] | hour) loss of | | | | [place], | [address] | consciousness | | | | [place] [address] | | (Primary Dx); | | | | [phone] | Kathi Soto, | Impaired memory; | [...] | | | order to [facility]. | | | | | [...] | | send order to [facility] | | | | | | | [...] | 0 | 10/13/19 | | | Ezzyqhgicw-ZIZU-Psha | mouth as needed. | | | 16 | 7 | | -Cod [id number] MG | | | | | | [...] Speech Pathologist - 08/15/2016 8:51 AM PDT [facility] SPEECH THERAPY [address] [facility] [address] Speech Therapy Progress Assessment Date: 08/14/2016 Patient Information Patient Name: Rosario Malik Date of : 1965 Age: 51 y.o. History Encounter Diagnoses Code Name Primary? S06.0X9A Concussion with brief (less than one hour) loss of consciousness Yes R41.3 Impaired memory R47.89 Word finding difficulty Date of Onset: 03/15/2016 Referring Provider: Aaron Rodriguez MD Rehab Precautions Flowsheet Row Office Visit from 05/01/2016 in [facility] THERAPY PT OP Rehab Precautions Precautions None Rehab Learning Style Flowsheet Row [facility] CASH SALES AUDIT CLERK OP EVAL from 05/16/2016 in [facility] SPEECH THERAPY O ffice Visit from 05/01/2016 in [facility] THERAPY PT OP Learning Style [...] Patient Caregiver's Ability to Manage Condition: 2 CASH SALES AUDIT CLERK G-Codes Functional Assessment Tool Used: NOMS Functional [...] From: 08/16/2016 Certification To: 11/16/2016 Treatment Plan/Interventions 49286 - Cognitive [id number] - Cognitive [id number] - Speech/Hearing Treatment Patient and/or family has [...] 2019 | Visit | | [address] | | | | | | [place] | | | | | | [address] | | | | | | | | +--------+---------+ + + + | 11/24/ | Office | Cardiology | [place], | | | 2019 | Visit | | SINDHU Erickson [address] | | | | | | [place], | | | | | | [place] [address] | | | | | | [phone] | | | | | | | [...]
--- OUTSIDE RECORDS SUMMARY | ~2019-02-28 | XMS | Encounter Summary ---
Demographics + + + | Address | [address] | | | [place] [address] | + + + | Home Phone [...] Team Providers + +------+ + | Care Rail Express Clerk Name | Role | Phone | [...] | RN | | | | | [place], | | | | | | [place] [address] | | | | | | [phone] | | | +--------+ + + + [...] Description | +--------+---------+ + + + | 02/05/ | Office | Pulmonology | Mukul Clark MD | | | 2019 | Visit | | [address] | | | | | | [place] | | | | | | [address] | | | | | | | | +--------+---------+ + + + | 11/24/ | Office | Cardiology | [place], | | | 2019 | Visit | | SINDHU Erickson [address] | | | | | | [place], | | | | | | [place] [address] | | | | | | [phone] | | | | | | | | +--------+---------+ + + + documented as of this encounter Visit Diagnoses Not on filedocumented in this encounter"
--- OUTSIDE RECORDS SUMMARY | ~2019-02-28 | XMS | Encounter Summary ---
Demographics + + + | Address | [address] | | | [place] [address] | + + + | Home Phone | | + + + | Preferred Language | Unknown | + + + | Marital Status | Single | + + + | Sikh Affiliation | 1041 | + + + | Race | Unknown | + + + | Ethnic Group | Unknown | + + + Author + + + | Author | [facility] | | | and [place] | + + + | Organization | [facility] | | [...] Team Providers + +------+ + | Care Wound Care Specialist Name | Role | Phone | + +------+ + | Juan Cherry DO | PCP | | + +------+ + Reason for Visit + + + | Reason | Comments | + + + | Appointment | CANCELLING APPOINTMENT | + + + Encounter Details +--------+ + + + + | Date | Type | Department | Care Team | Description | +--------+ + + + + | 09/16/ | Telephone | [facility] | Kevin Sandoval, | Appointment | | 2014 | | PULMONARY [address] | MD [address] | (CANCELLING | | | | [place], | [place] | APPOINTMENT) | | | | [place] [address] | [address] | | | | | [phone] | | | +--------+ + + + [...] | | | | | | [place] [address] | | | | | | [phone] | | | | | | | | +--------+---------+ + + + documented as of this encounter Visit Diagnoses Not on filedocumented in this encounter"
--- OUTSIDE RECORDS SUMMARY | ~2019-02-28 | XMS | Encounter Summary ---
Demographics + + + | Address | [address] | | | [place] [address] | + + + | Home Phone [...] Team Providers + +------+ + | Care Highway Maintenance Supervisor Name | Role | Phone | + +------+ + | Juan Cherry DO | PCP | | + +------+ + Encounter Details +--------+ + + + + | Date | Type | Department | Care Team | Description | +--------+ + + + + | 10/08/ | Abstract | [facility] [place] | Shashi Segovia | Emphysema (HCC) | | 2013 | | NEUROLOGY ADRIANA | MD Miryam Need updated | (Primary Dx); | | | | [address], | address | Migraine | | | | [address] [place] | | | | | | [place] [address] | | | | | | [phone] | | | +--------+ + + + [...] [place] | | | | | | [address] | | | | | | | | +--------+---------+ + + + | 11/24/ | Office | Cardiology | [place], | | | 2019 | Visit | | SINDHU Erickson [address] | | | | | | [place], | | | | | | [place] [address] | | | | | | [phone] | | | | | | | | +--------+---------+ + + + documented as of this encounter Visit Diagnoses + + | Diagnosis | + + | Emphysema - Primary Other emphysema | + + | Migraine Migraine, unspecified, without mention of intractable migraine without | | mention of status migrainosus | + + documented in this encounter"
--- OUTSIDE RECORDS SUMMARY | ~2019-02-28 | XMS | Encounter Summary ---
Demographics + + + | Address | [address] | | | [place] [address] | + + + | Home Phone [...] Team Providers + +------+ + | Care Sausage Inspector Name | Role | Phone | [...] monitoring (Primary | | | | [address] [facility], | address | Dx) | | | | [address] [place] | | | | | | [place] [address] | | | | | | [phone] | | | +--------+ + + + [...] [place] | | | | | | [address] | | | | | | | | +--------+---------+ + + + | 11/24/ | Office | Cardiology | [place], | | | 2019 | Visit | | SINDHU Erickson [address] | | | | | | [place], | | | | | | [place] [address] | | | | | | [phone] | | | | | | | [...] mL/min/1.73m2 | [facility] | | | [facility] | | | MEDICAL | | | [...] + | [facility] | [address] | [place] | [phone] | | [facility] | | [address] | | | - LABORATORY | | | | + + + + + | [facility] | [address] | [place] | | | [facility] | | [address] | | | - LABORATORY | | [...] + | [facility] | [address] | [place], [place] | [phone] | | [facility] | | [address] | | | - LABORATORY | | | | + + + + + | [facility] | [address] | [place], [place] | | | [facility] | | [address] | | | - LABORATORY | | | | + + + + + documented in this encounter Visit Diagnoses + + | Diagnosis | + + | Therapeutic drug monitoring - Primary Encounter for therapeutic drug monitoring | + + documented in this encounter"
--- OUTSIDE RECORDS SUMMARY | ~2019-02-28 | XMS | Encounter Summary ---
Demographics + + + | Address | [address] | | | [place] [address] | + + + | Home Phone [...] Team Providers + +------+ + | Care Motor Block Mechanic Name | Role | Phone | + +------+ + | Juan Cherry DO | PCP | | + +------+ + Reason for Visit + + + | Reason | Comments | + + + | CPAP Follow Up | | + + + Encounter Details +--------+---------+ + + + | Date | Type | Department | Care Team | Description | +--------+---------+ + + + | 07/02/ | Office | PM [facility] [place] | Meghan Garcia MD | GARRY (obstructive | | 2019 | Visit | SLEEP DISORDER [address] | [address] | sleep apnea) | | | | [place] | [place] | (Primary Dx) | | | | [place] [address] | [address] | | | | | [phone] | | | +--------+---------+ + + + [...] + + + | Blood Pressure | 100/70 | 07/02/2018 11:20 AM | | | | | PDT | | + + + + + | Pulse | 87 | 07/02/2018 11:20 AM | | | | | PDT | | + + + + + | Temperature | - | - | | + + + + + | Respiratory Rate | 16 | 07/02/2018 11:20 AM | | | | | PDT | | + + + + + | Oxygen Saturation | 97% | 07/02/2018 11:20 AM | | | | | PDT | | + + + + + | Inhaled Oxygen | - | - | | | Concentration | | | | + + + + + | Weight | 66.1 kg (145 lb 11.6 | 07/02/2018 11:20 AM | | | | oz) | PDT | | + + + + + | Height | - | - | | + + + + + | Body Mass Index | 27.53 | 06/18/2018 1:02 PM | | | [...] encounter Progress Notes Meghan Garcia MD - 07/02/2018 11:30 AM PDT Rosario Malik is a 53 y.o. year old female is here for follow-up for sleep apnea. INTERVAL HISTORY The patient's last clinic visit was 04/28/18. She has a history of COPD, bipolar disorder, hypothyroidism, paroxysmal atrial tachycardia, GERD, interstitial cystitis, and mild obstructive sleep apnea presenting for issues with he r bilevel machine. Rosario stateswhen she was hospitalized for fall and weakness in December 2017, she was told that she needed bleed-inoxygen into her bilevel machine. She has tried to get her [employer] to add the connection part for oxygen to her machine, but it has not happene d. Now she only uses her 3 per minute of supplemental oxygen at night and she has not been u sing her machine for the past few months. She was already on oxygen during the day for her COPD through her hosiery pairer. She says since she stopped using her bilevel machine she has had problems with excessive da ytime sleepiness, drowsy driving, and not feeling rested when she wakes up in the morning. When she was using her machine they were not the problem. Discharge summary from ER notes dated 2018 indicates that she had an overnight oximetry on her bilateral while she was hospitalized, and noted to have residual hypoxemia. She says she was told to stop using her bilevelmachine until she is able to use the bilev el with oxygen. When I asked her why she used the bilevel machine until she can use oxygen and bilevel toge ther, she states that the machine makes her waking up with panic attack, feeling that she ca nnot breathe, and she gets some "strokelike symptoms." She says she had this problem one m ore time before she was hospitalized in December 2017. She cannot remember how many sleep studies she has had so far. However, she was on CPAP f or several years before she was switched to bilevel [id number]. I reviewed the notes from Dr Chris Alarcon in [place], [place].It indicates that patient had CPAP intolerance bec ause of her COPD. She had a diagnostic polysomnography on February 13, 2015. Sleep effic iency was 83% and mildly decreased. There was 17% of stage R sleep.No comments about the p osition of sleep. AHI was 5.9. Apnea index was 1.2. RDI was 8. Brennon oxygen saturati on was 83%. The saturation was less than 90% for 25% of time. She had atitration study and April 17, 2015. Sleep efficiency was 92%. There was 6 % of stage R sleep. Bilevel at 8 over 4 cm was restarted and then was switched to bilevel ST with a backup rate of 10 bpm, and patient ended with the 5 level-ST at "7/13 cm H2O" ? With backup rate of 12 BPM. It was thought that the bilevel ST was needed because patient had central alveolar hypoventilation. TCO2 or EtCO2 was not mentioned in any of the sleep studies. Download shows that patient is on bilevel-ST at 16/11 cm H2O with a breath rate of 12 BPM . Detailed report shows that AHI has been elevated with occasional maximum at 40. She has not used the machine for the past 5-6 months. She underwent a Pap titration study on April 28, 2018. This titration study was satisfactory . CPAP was not tried as patient had previously showed CPAP intolerance. Bilevel-S was titra kelley up from 10/5 cm H2O to 19/15 cm H2O . Pressure of 13/8 cm H2O appeared to control obstru ctive sleep apnea in supine non-REM sleep. In REM sleep, patient started to have numbers of obstructive sleep apnea at pressure of 13/8 cm H2O, and pressure was increased. Pressure o f 16/11 cm H2O appeared to relatively control obstructive sleep apnea in supine REM sleep. Pressure continued to be increased for occasional snoring and presumed obstructive events. It did not appear to make any positive difference, and made Cflow look even worse. Also, tung stover started to have paradoxical breathing as pressure was increased. Somewhere in the mi ddle of the study patient woke up, calling with the urgency, stated that "she woke like she did last year " panic with stroke like symptoms". Her SPO2 was above 90% and cflow was walter l right before she woke up. I suspect higher pressures, mask leak, and anxiety caused these symptoms. Entire study time was performed on room air and supplemental oxygen was not added . Wake SPO2 was in the high 90%. Mean SpO2 was 96 %, brennon SpO2 was 91 %, and amount of tot al sleep time spent below SpO2 of 90% was 0 %. Transcutaneous CO2 ranged 35-37 mmHg during s upine wake, and remained between 38 and 40 mmHg for entire study time. Hypoventilation was not observed. Previous sleep study reports(external) mentioned that patient had hypoventila tion during sleep, though CO2 was not measured in those sleep studies. A trial of bilevel-S at 15/11 cm H2O with a medium airtouch F20 mask recommended. Since patric ased on patient's history and previous sleep studies I was expecting hypoventilation during sleep and hypoxemia, we can also perform a repeat diagnostic polysomnography and reevaluate her sleep-related breathing disorder. I personally called the patient and discussed the res ults with her. She thinks that she needs her CPAP machine because without it she has excess wanda daytime sleepiness and drowsy driving. She agrees with a trial of bilevel-s, and she un derstands that her sleep study didn't show that she needed nocturnal supplemental oxygen. Cj russell decided not to perform a diagnostic study at this time. Today: Rosario comes in bringing her old bilevel machine and her download shows that she is on bi level-ST. pressure has been changed to 15/11 cm H2O. I had sent a prescription for bilevel- S. She says she was told that since her machine is not 5-year-old she was not eligible for replacement of the machine. she continues to have frequent awakenings and usually for no go od reason. She is wearing an AirTouch F20 fullface mask. She says it was comfortable for t he first 3 weeks, But it is somewhat worn out and puts pressure on her nasal bridge. She th en has to adjust it and and then she gets leak. She still feels tired. She thinks she gets 4-5 hours of sleep per night. PAP STATISTICS: DME Company: [facility], Bilevel-ST: 15/11 cm H2O Days not used: Average daily usage: 4:40 % >= 4 hrs: 60.9% AHI: PROBLEM LIST Patient Active Problem List Diagnosis Date Noted POA CMC DJD(carpometacarpal degenerative joint disease), localized primary 06/18/2018 Unkno wn Priority: High Palpitations Unknown Priority: High Paroxysmal atrial tachycardia 08/12/2013 Unknown Priority: High COPD (chronic obstructive pulmonary disease) 11/14/2011 Unknown Priority: Medium Hypothyroidism Unknown Priority: Medium Asthma, moderate persistent Unknown Priority: Medium Bipolar disorder Unknown Priority: Medium Healthcare maintenance 02/27/2012 Unknown Priority: Low Central sleep apnea 11/14/2011 Unknown Priority: Low Posttraumatic stress disorder Unknown Priority: Low Anxiety disorder Unknown Priority: Low Insomnia 08/22/2011 Unknown Priority: Low Fibromyalgia 12/14/2009 Unknown Priority: Low Generalized weakness 2018 Unknown Hypotension due to medication 09/17/2017 Unknown Dizziness 05/01/2016 Unknown Impaired mobility and activities of daily living 05/01/2016 Unknown Concussion with brief (less than one hour) loss of consciousness 05/01/2016 Unknown Intractable acute post-traumatic headache 05/01/2016 Unknown Interstitial cystitis (chronic) without hematuria 11/22/2015 Unknown Syncope 07/11/2014 Unknown Abnormal stress test 02/28/2014 Unknown Chest pain Unknown Pericarditis 01/11/2014 Unknown Pulmonary emphysema Unknown Migraine Unknown Allergic rhinitis 06/18/2013 Unknown Hypoxemia 04/27/2013 Unknown Sprain of chest wall 04/12/2013 Unknown Insomnia 02/22/2013 Unknown Diverticulosis 01/25/2013 Unknown Multiple personality disorder Unknown GERD (gastroesophageal reflux disease) Unknown Benign neoplasm of pituitary gland and craniopharyngeal duct (pouch) 10/28/2012 Unknow n Status post total hysterectomy 10/20/2012 Unknown Irritable colon 10/20/2012 Unknown Obstructive sleep apnea on CPAP 05/23/2012 Unknown Preventative health care 03/11/2012 Unknown Pituitary adenoma 11/04/2006 Unknown ALLERGIES Allergies Allergen Reactions Erythromycin Base Other (See Comments) Bloating and swelling, lips swell Onion Anaphylaxis Artificial Sweetners [Sucralose] Other (See Comments) Migraine Doxycycline Hives Macrolides And Ketolides Hives Meperidine Other (See Comments) Panic attacks Nsaids Hives Pork Allergy Other (See Comments) GI distress MEDICATIONS Prior to Admission medications Medication Sig Start Date End Date Taking? Authorizing Provider Albuterol Sulfate (VENTOLIN HFA IN) Inhale 2 puffs into the lungs 2 times daily. Yes Hist orical Provider, digoxin (LANOXIN) 125 mcg tablet Take 1 tablet by mouth Daily. 02/19/18 Yes SINDHU Riojas fluticasone (FLONASE) 50 mcg/nasal spray 1 spray by Nasal route Daily. Yes Historical Pro vider, fluticasone-salmeterol (ADVAIR HFA) 230-21 MCG/ACT inhaler Inhale 2 puffs into the lungs 2 times daily. Yes Historical Provider, gabapentin (NEURONTIN) 800 MG tablet Take 800 mg by mouth 3 times daily. 11/07/11 Yes DATA MIGRATION QUIN SR HYDROcodone-acetaminophen (NORCO) 10-325 mg per tablet Take 1-2 tablets by mouth every 6 ho urs as needed for Pain. 06/18/18 Yes Jesus Brady, hydrOXYzine hydrochloride (ATARAX) 25 mg tablet Take 1 tablet by mouth Daily. 11/03/17 Yes Historical Provider, levothyroxine (SYNTHROID, LEVOTHROID) 75 MCG tablet Take 75 mcg by mouth every morning (bef ore breakfast). Yes Historical Provider, metFORMIN (GLUCOPHAGE) 500 mg tablet Take 500 mg by mouth 2 times daily (with breakfast & d inner). 11/02/15 Yes Historical Provider, metoprolol tartrate (LOPRESSOR) 25 mg tablet Take 0.5 tablets by mouth 2 times daily. Yes SINDHU Vang ondansetron (ZOFRAN ODT) 4 mg disintegrating tablet Take 4 mg by mouth Every 6 hours as nee ded. 12/01/15 Yes Historical Provider, oxybutynin (DITROPAN) 5 mg tablet Take 5 mg by mouth Daily. Yes Historical Provider, oxygen Inhale into the lungs continuous. 3 liters while awake Yes Historical ProviderYinka pantoprazole (PROTONIX) 20 mg tablet Take 40 mg by mouth every morning (before breakfast). Yes Historical Provider, potassium chloride (KLOR-CON M20) 20 mEq ER tablet Take 1 tablet by mouth Daily. 03/13/18 Y SINDHU Dumont predniSONE (DELTASONE) 10 mg tablet Take 10 mg by mouth Daily. Yes Historical ProviderYinka Respiratory Therapy Supplies [facility] Please provide patient with necessary CPAP supplies (she did not specify, okay to send order as appropriate) Diagnosis Code(s)327.23 . Length of Need 99 months. Please send order to [facility]. 01/13/13 Yes Loreta London MD Respiratory Therapy Supplies [facility] Change CPAP back to 11-14 cm H2O. All necessary supplies. No oxygen bleed in. Diagnosis Code(s)327.23. Length of Need: Lifetime. Please send order to [facility]. This is not a new order, just a change in settings. 08/10/12 Yes Loreta London MD roflumilast (DALIRESP) 500 mcg tablet Take 1 tablet by mouth Daily. 09/13/14 Yes Kevin Harris MD SUMAtriptan (IMITREX) 100 mg tablet Take 100 mg by mouth as needed for Migraine. Yes Hist orical ProviderMD traMADol (ULTRAM) 50 mg tablet Take 50 mg by mouth 4 times daily. 03/29/16 Yes Historical Pr MD shaun ziprasidone (GEODON) 80 MG capsule Take 80 mg by mouth 2 times daily. 11/07/11 Yes DATA MICHELE RATION QUIN SR PHYSICAL EXAM BP 100/70 | Pulse 87 | Resp 16 | Wt 66.1 kg (145 lb 11.6 oz) | SpO2 97% | BMI 27.53 kg /m , GEN: Pleasant, appropriate affect, NAD. NEURO: Alert, normal gait. ASSESSMENT and PLAN GARRY with CPAP intolerance: she previously was on bilevel-ST which I don't understand why it was started in the first place for the patient. The sleep study report from [facility] which was performed on 04/17/15( Dr. Alarcon in [place], [place]) indicated that . Bilevel-ST was prescribed because of central alveolar hypoventilation, but in the report th ere was no records for the EtCO2 or TCO2 measurements. Even if she had hypoventilation duri ng sleep, bilevel-ST is not the appropriate treatment. She also does not have central sleep apnea. Thus, bilevel-ST is not an appropriate mode for treatment of her sleep apnea. Her do wnload shows elevated AHI and she continues to have symptoms including frequent awakenings. Since she has previous history of CPAP intolerance, CPAP was not tried at her last titratio n study which was performed on April 282018 in our sleep center. However, that sleep study showed that bilevel-S at 15/11 cm H2O was able to control her sleep apnea. Supplement al oxygen was not needed and was not added. There was no evidence for hypoventilation. Date, I personally called [facility] and discussed this with one of the staff. If the machine c ould be set up on bilevel-S this should be done(today, I tried to check it but after about 1 0 minutes the machine still was reading the card, and I wonder if it functions properly). Ot herwise, the machine should be replaced with a bilevel-S machine. A staff from [facility] is to c all me tomorrow and then I will call the patient, and further decisions(including f/u appt) to be made accordingly. Patient is agreeable. I spent 25 minutes face to face with the patient, with over 50% spent in counseling and/or coordination of care regarding sleep apnea. Thank you for the opportunity to participate in this patient's care. Portions of this chart may have been created with [employer] voice recognition software. Occasi onal wrong-word or [...] | | | | [place] | | | | | | [id number] | | | | | | | | +--------+---------+ + + + | 11/24/ | Office | Cardiology | [place], | | | 2019 | Visit | | GeorginaSINDHU reynoso [address] | | | | | | [place], | | | | | | [place] [address] | | | | | | [phone] | | | | | | | | +--------+---------+ + + + documented as of this encounter Visit Diagnoses + + | Diagnosis | + + | GARRY (obstructive sleep apnea) - Primary Obstructive sleep apnea (adult) (pediatric) | + + documented in this encounter
--- OUTSIDE RECORDS SUMMARY | ~2019-02-28 | XMS | Encounter Summary ---
Demographics + + + | Address | [address] | | | [place] [address] | + + + | Home Phone [...] Team Providers + +------+ + | Care Station Repairer Name | Role | Phone | + +------+ + PCP | Unavailable | + +------+ + Encounter Details +--------+ + + + + | Date | Type | Department | Care Team | Description | +--------+ + + + + | 01/29/ | Hospital | [facility] | Ozzy Delcid, | | | 2009 - | Encounter | MED CTR OP REHAB | MD [address] | | | | | [address] [place] | [place] | | | 02/23/ | | [place] [address] | [address] | | | 2009 | | [phone] | | | +--------+ + + + [...] [place] | | | | | | [address] | | | | | | | | +--------+---------+ + + + | 11/24/ | Office | Cardiology | [place], | | | 2019 | Visit | | SINDHU Erickson [address] | | | | | | [place], | | | | | | [place] [address] | | | | | | [phone] | | | | | | | | +--------+---------+ + + + documented as of this encounter Visit Diagnoses Not on filedocumented in this encounter"
--- OUTSIDE RECORDS SUMMARY | ~2019-02-28 | XMS | Encounter Summary ---
Demographics + + + | Address | [address] | | | [place] [address] | + + + | Home Phone [...] Team Providers + +------+ + | Care Geospatial Scientist Name | Role | Phone | + [...] + + | 08/01/ | [facility] | [facility] [place] [facility] [place], | Lab Order (due for | | 2015 | | CARDIOLOGY [address] | SINDHU Erickson [address] | fasting labs) | | | | [place], | [place], | | | | | [place] [address] | [place] [address] | | | | | [phone] | [phone] | | | | | | | [...] [place] | | | | | | [id number] | | | | | | | | +--------+---------+ + + + | 11/24/ | Office | Cardiology | [place], | | | 2019 | Visit | | SINDHU Erickson [address] | | | | | | [place], | | | | | | [place] [address] | | | | | | [phone] | | | | | | | [...]
--- OUTSIDE RECORDS SUMMARY | ~2019-02-28 | XMS | Encounter Summary ---
Demographics + + + | Address | [address] | | | [place] [address] | + + + | Home Phone [...] Providers + +------+ + | Care Carpet Loom Fixer Name | Role | Phone | + +------+ + | Juan Cherry DO | PCP | | + +------+ + Encounter Details +--------+ + + + + | Date | Type | Department | Care Team | Description | +--------+ + + + + | 01/07/ | Hospital | [facility] | Lencho Astorga, | Contusion of foot | | 2012 | Encounter | MED CTR XRAY [address] | MD [address] | including toes | | | | [place] | [place], [place] | | | | | [place] [address] | [address] | | | | | [phone] | | | +--------+ + + + [...] | | | | send order to [facility] | | | | [...] [place] | | | | | | [address] | | | | | | | | +--------+---------+ + + + | 11/24/ | Office | Cardiology | [place], | | | 2019 | Visit | | SINDHU Erickson [address] | | | | | | [place], | | | | | | [place] [address] | | | | | | [phone] | | | | | | | [...] Performed At | + + + | [facility] Diagnostic Imaging | [place] | | Department [address] [facility] | [facility] | | [ rep [address]] [ rep [facility] | | [facility]] Signed | - IMAGING | | | | | Patient Name: JADYN SCHMITZ | | | Physician: FRANCA : 1965 Age: 47 Sex: F Unit | | | #: [id number] Exam Date: 01/07/13 Location: | | | [facility] #: [id number] Page: | | | %(RAD)RES..mtdd.print.filter("pg") of %(RAD) | | | RES..mtdd.print.filter("tpg") | | | | | | Accession Number: [id number] | | | LEFT FOOT, 01/07/2013 CLINICAL [...] Transcribed | | | Date/Time: 01/07/2013 15:01 Nurse Practitioner Home Assessments: | | | <<Signature on File>> | | | Kobe | | | MD Tor01/07/13 1703 <Electronically signed by Kobe Lentz MD> | | | Kobe Lentz MD 01/07/13 1430 Nurse Practitioner Home Assessments: [employer] | | | Incbhhhfwfhmo59/14/13 1501 Lencho Astorga MD | | + + + + + + + + | Performing | Address | City/State/Zipcode | Phone Number | | Organization | | | | + + + + + | [facility] | [address] | [place] | [phone] | | [facility] | | [address] | | | - IMAGING | | | | + + + + + documented in this encounter Visit Diagnoses + + | Diagnosis | + + | Contusion of foot including toes Contusion of foot | + + documented in this encounter
--- OUTSIDE RECORDS SUMMARY | ~2019-02-28 | XMS | Encounter Summary ---
Demographics + + + | Address | [address] | | | [place] [address] | + + + | Home Phone [...] Team Providers + +------+ + | Care Real Estate Internship Name | Role | Phone | + [...] | | | Clinic | [place] | | | | | | [address] | | | | | | | [...] [place] | | | | | | [address] | | | | | | | | +--------+---------+ + + + | 11/24/ | Office | Cardiology | [place], | | | 2019 | Visit | | SINDHU Erickson [address] | | | | | | [place], | | | | | | [place] [address] | | | | | | [phone] | | | | | | | | +--------+---------+ + + + documented as of this encounter Visit Diagnoses Not on filedocumented in this encounter"
--- OUTSIDE RECORDS SUMMARY | ~2019-02-28 | XMS | Encounter Summary ---
Demographics + + + | Address | [address] | | | [place] [address] | + + + | Home Phone [...] Team Providers + +------+ + | Care Credit Specialist Name | Role | Phone | [...] Provider Unknown | | | | | [place], [place] | [phone] | | | | | [address] | | | | | | [phone] | | | +--------+ + + + [...] | | | | | order to [facility]. | | | | | + + [...] | | | | | | | [facility]. | | | | | [...] | | | | | | ([facility]) | | | | | | [...] | | | | [place] | | | | | | [address] | | | | | | | | +--------+---------+ + + + | 11/24/ | Office | Cardiology | [place], | | | 2019 | Visit | | SINDHU Erickson [address] | | | | | | [place], | | | | | | [place] [address] | | | | | | [phone] | | | | | | | | +--------+---------+ + + + documented as of this encounter Procedures + +--------+ + + + | Procedure Name | Priori | Date/Time | Associated Diagnosis | Comments | | | ty | | | | + +--------+ + + + | ECHO COMPLETE | Routin | 01/14/2014 | | Results for this | | | e | 1:10 AM | | procedure are in the | | | | PST | | results section. | + +--------+ + + + documented in this encounter Results ECHO Complete (01/14/2014 1:10 AM PST) + + | Specimen [...]
--- OUTSIDE RECORDS SUMMARY | ~2019-02-28 | XMS | Encounter Summary ---
Demographics + + + | Address | [address] | | | [place] [address] | + + + | Home Phone [...] Team Providers + +------+ + | Care Asset Protection Officer Name | Role | Phone | [...] + + | 12/08/ | Telephone | [facility] | Jared Mcdonough, | Appointment | | 2014 | | CARDIOLOGY [address] | | | | | [place], | [place], | | | | | [place] [address] | [place] [address] | | | | | [phone] | [phone] | | | | | | | [...] [place] | | | | | | [address] | | | | | | | | +--------+---------+ + + + | 11/24/ | Office | Cardiology | [place], | | | 2019 | Visit | | [address] | | | | | | [place], | | | | | | [place] [address] | | | | | | [phone] | | | | | | | | +--------+---------+ + + + documented as of this encounter Visit Diagnoses Not on filedocumented in this encounter"
--- OUTSIDE RECORDS SUMMARY | ~2019-02-28 | XMS | Encounter Summary ---
Demographics + + + | Address | [address] | | | [place] [address] | + + + | Home Phone [...] Team Providers + +------+ + | Care Spa Concierge Name | Role | Phone | + [...] Description | +--------+--------+ + + + | 01/20/ | Refill | [facility] [place] | [place], | Medication Refill | | 2012 | | PULMONARY [address] | Loreta Alonso MD | | | | | [place], | | | | | | [place] [address] | | | | | | [phone] | | | +--------+--------+ + + + [...] [place] | | | | | | [address] | | | | | | | | +--------+---------+ + + + | 11/24/ | Office | Cardiology | [place], | | | 2019 | Visit | | [address] | | | | | | [place] | | | | | | [place] [address] | | | | | | [phone] | | | | | | | | +--------+---------+ + + + documented as of this encounter Visit Diagnoses Not on filedocumented in this encounter"
--- OUTSIDE RECORDS SUMMARY | ~2019-02-28 | XMS | Encounter Summary ---
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 Fifteen minutes were spent ikoi-qo-eiuv, wit h the majority of time spent [...] [place] | | | | | | [address] | | | | | | | | +--------+---------+ + + + | 11/24/ | Office | Cardiology | [place], | | | 2019 | Visit | | [address] | | | | | | [place] | | | | | | [place] [address] | | | | | | [phone] | | | | | | | | +--------+---------+ + + + documented as of this encounter Visit Diagnoses + + | Diagnosis | + + | Organic insomnia, unspecified - Primary | + + | GARRY on CPAP Obstructive sleep apnea (adult) (pediatric) | + + documented in this encounter"
--- OUTSIDE RECORDS SUMMARY | ~2019-02-28 | XMS | Encounter Summary ---
Demographics + + + | Address | [address] | | | [place] [address] | + + + | Home Phone [...] Providers + +------+ + | Care Spring Crater Name | Role | Phone | + +------+ + | Juan Cherry DO | PCP | | + +------+ + Reason for Visit + + + | Reason | Comments | + + + | Follow-up | UC appt for COPD exacerbation | + + + Encounter Details +--------+ + + + + | Date | Type | Department | Care Team | Description | +--------+ + + + + | 05/31/ | Telephone | [facility] | Kade Hoffman MD | Follow-up ( appt | | 2013 | | CARE [address] | [address] | for COPD | | | | [place] | [place] [address] | exacerbation ) | | | | [address] | [phone] | | | | | [phone] | | | +--------+ + + + [...] | | | | [place] | | | | | | [address] | | | | | | | | +--------+---------+ + + + | 11/24/ | Office | Cardiology | [place], | | | 2019 | Visit | | SINDHU Erickson [address] | | | | | | [place], | | | | | | [place] [address] | | | | | | [phone] | | | | | | | | +--------+---------+ + + + documented as of this encounter Visit Diagnoses Not on filedocumented in this encounter"
--- OUTSIDE RECORDS SUMMARY | ~2019-02-28 | XMS | Encounter Summary ---
Demographics + + + | Address | [address] | | | [place] [address] | + + + | Home Phone [...] Team Providers + +------+ + | Care Costuming Supervisor Name | Role | Phone | + +------+ + PCP | Unavailable | + +------+ + Encounter Details +--------+ + + + + | Date | Type | Department | Care Team | Description | +--------+ + + + + | 11/08/ | Hospital | [facility] | Ozzy Delcid, | | | 2009 - | Encounter | [facility] | [address] | | | | | [address] [place] | [place] | | | 11/23/ | | [place] [address] | [address] | | | 2009 | | [phone] | | | +--------+ + + + [...] [place] | | | | | | [address] | | | | | | | | +--------+---------+ + + + | 11/24/ | Office | Cardiology | [place], | | | 2019 | Visit | | [address] | | | | | | [place] | | | | | | [place] [address] | | | | | | [phone] | | | | | | | | +--------+---------+ + + + documented as of this encounter Visit Diagnoses Not on filedocumented in this encounter"
--- OUTSIDE RECORDS SUMMARY | ~2019-02-28 | XMS | Encounter Summary ---
Demographics + + + | Address | [address] | | | [place] [address] | + + + | Home Phone [...] Providers + +------+ + | Care Door Person Name | Role | Phone | [...] MD | symptoms) | | | | [place], | | | | | | [place] [address] | | | | | | [phone] | | | +--------+ + + + [...] [place], | | | | | | [place] [address] | | | | | | [phone] | | | | | | | | +--------+---------+ + + + documented as of this encounter Visit Diagnoses Not on filedocumented in this encounter"
--- OUTSIDE RECORDS SUMMARY | ~2019-02-28 | XMS | Encounter Summary ---
Demographics + + + | Address | [address] | | | [place] [address] | + + + | Home Phone [...] Team Providers + +------+ + | Care Package Line Operator Name | Role | Phone | + +------+ + | Juan Cherry DO | PCP | | + +------+ + Encounter Details +--------+ + + + + | Date | Type | Department | Care Team | Description | +--------+ + + + + | 04/12/ | Hospital | [facility] | Ozzie Hayes | | | 2013 | Encounter | MED CTR EMERGENCY | MD Ran [address] | | | | | [place] [address] | [address] [place] | | | | | [place], [place] | [place] [address] | | | | | [address] | [phone] | | | | | [phone] | | | +--------+ + + + [...] | | | | | order to [facility]. | | | | | [...] | | | | send order to [facility] | | | | | | | [facility]. | | | | | [...] | | | | | | [place] [address] | | | | | | [phone] | | | | | | | | +--------+---------+ + + + documented as of this encounter Procedures + +--------+ + + + | Procedure Name | Priori | Date/Time | Associated Diagnosis | Comments | | | ty | | | | + +--------+ + + + | XR CHEST AP PORTABLE | Routin | 04/12/2013 | | Results for this | | | e | 7:32 AM | | procedure are in the | | | | PST | | results section. | + +--------+ + + + documented in this encounter Results XR Chest AP Portable (04/12/2013 7:32 AM PST) + + | Specimen | + + | | + + + + + | Narrative | Performed At | + + + | [facility] | [place] | | Department [address], [place] | [facility] | | [ rep ct [address]] [ rep ct [facility] [place] | | st zip] Signed | - IMAGING | | | | | Patient Name: JADYN SCHMITZ | | | Physician: CHEVY : 1965 Age: 48 Sex: F Unit | | | #: [id number] Exam Date: 04/12/13 Location: | | | ER Report #: [id number] Page: | | | %(RAD)RES..mtdd.print.filter("pg") of %(RAD) | | | RES..mtdd.print.filter("tpg") | | | | | | Accession Number: [id number] | | | PORTABLE CHEST CLINICAL HISTORY: SHORTNESS OF BREATH. | | | COMPARISON: 04/05/2013 FINDINGS: Heart | | | size is normal. Aorta and pulmonary vasculature are normal. There are | | | no areas of abnormal lung density. There is no effusion or | | | pneumothorax. No bony or upper abdominal abnormalities are seen. | | | IMPRESSION: 1. NEGATIVE STUDY OF THE CHEST. | | | Dictated Date/Time: 04/12/2013 07:32 Transcribed | | | Date/Time: 04/12/2013 08:42 Carpet Installation Specialist: | | | <<Signature on File>> | | | | | | Cesar Ren MD04/12/13 0957 <Electronically signed by | | | Cesar Ren MD> Cesar Ren MD 04/12/13 | | | 0732 Carpet Installation Specialist: [employer] [id number]/17/14 0842 | | | [place] MD | | + + + + + + + + | Performing | Address | City/State/Zipcode | Phone Number | | Organization | | | | + + + + + | [facility] | [address] | [place] | [phone] | | [facility] | | [address] | | | - IMAGING | | | | + + + + + documented in this encounter Visit Diagnoses Not on filedocumented in this encounter
--- OUTSIDE RECORDS SUMMARY | ~2019-02-28 | XMS | Encounter Summary ---
Demographics + + + | Address | [address] | | | [place] [address] | + + + | Home Phone [...] Team Providers + +------+ + | Care Aquaculture And Fisheries Professor Name | Role | Phone | + +------+ + | Juan Cherry DO | PCP | | + +------+ + Reason for Visit Evaluate & Treat (Urgent) +--------+ + + + + + | [...] | (obstructive | [address] | [place] | | | | | sleep | [address] [place] | [place], | | | | | apnea) | [place], [place] | [place] [address] | | | | | Procedures | [id number] | Phone: | | | | | [place] | Phone: | [phone] | | | | | 6/>YRS SLEEP | [phone] | Fax: | | | | | 4/> ADDL | Fax: | [phone] | | | | | ALESSIA ATTND | [phone] | | | | | | [place] POL[place]OM | | | | | | | 6/>YRS SLEEP | | | | | | | W/CPAP 4/> | | | | | | | ADDL ALESSIA | | | | | | | ATTND S/N | | | | | | | (JOHNNY) | | | | | | | (08/03/18 @ | | | | | | | 8pm) | | | +--------+ + + + + + Encounter Details +--------+ + + + + | Date | Type | Department | Care Team | Description | +--------+ + + + + | 08/03/ | Hospital | [facility] | Meghan Garcia MD | GARRY (obstructive | | 2019 - | Encounter | [facility] | [address] | sleep apnea) | | | | CENTER [address] | [place] [facility] | | | 08/04/ | | [place] | [id number] | | | 2018 | | [address] | | | | | | [phone] | | | +--------+ + + + [...] | | | | | order to [facility]. | | | | | + + + +---------+ + + | Respiratory | Change CPAP back to | 1 each | 99 | 06/17/20 | | | Therapy Supplies | 11-14 [...] | | | [facility]. | | | | | | [...] tablets by | 30 | 0 | 06/18/ | | | HYDROcodone-acetamin | mouth every 6 hours | tablet | | 19 | 9 | | ophen (NORCO) 10-325 | as needed for Pain. | | | | | | mg per tablet | | | | | | + + + +---------+ + + | | | | 0 | 07/15/19 | | | HYDROcodone-acetamin | | | | 19 | 9 | | ophen (NORCO) 5-325 | | | | | | | mg per tablet | | | | | | + + + +---------+ + + | | | | 0 | /12/13 | | | HYDROcodone-acetamin | | | | 19 | 9 | | ophen (NORCO) | | | | | | | 7.5-325 mg per | | | | | [...] [place] | | | | | | [address] | | | | | | | | +--------+---------+ + + + | 11/24/ | Office | Cardiology | [place], | | | 2019 | Visit | | SINDHU Erickson [address] | | | | | | [place], | | | | | | [place] [address] | | | | | | [phone] | | | | | | | | +--------+---------+ + + + documented as of this encounter Procedures + +--------+ + + + | Procedure Name | Priori | Date/Time | Associated Diagnosis | Comments | | | ty | | | | + +--------+ + + + | SLEEP STUDY | Routin | 08/10/2018 | | Results for this | | DIAGNOSTIC ONLY NO | e | 9:50 AM | | procedure are in the | | PAP | | PDT | | results section. | + +--------+ + + + documented in this encounter Results Sleep study diagnostic only (no PAP) (08/10/2018 9:50 AM PDT) + + + | Narrative | Performed At | + + + | Meghan Garcia | | | 08/16/2018 14:09 [facility] | | | [place] [address] Polysomnogram | | | Report on Rosario Malik performed on August 03, 2018. PATIENT | | | IDENTIFICATION: Rosario Malik IS a 53 y.o..-year-old female. | | | with a history of COPD, bipolar disorder, hypothyroidism, paroxysmal | | | atrial tachycardia, GERD, interstitial cystitis, and mild obstructive | | | sleep apnea. She cannot remember how many sleep studies she has had | | | so far. However, she was on CPAP for several years before she was | | | switched to bilevel in 2016. I reviewed the notes from Dr. Alarcon | | | in [place], [place]. It indicates that patient had CPAP | | | intolerance because of her COPD. She had a diagnostic | | | polysomnography on February 13, 2015. Sleep efficiency was 83% and | | | mildly decreased. There was 17% of stage R sleep.No comments about | | | the position of sleep. AHI was 5.9. Apnea index was 1.2. RDI was | | | 8. Brennon oxygen saturation was 83%. The saturation was less than | | | 90% for 25% of time. She had a titration study and April 17, 2015. | | | Sleep efficiency was 92%. There was 6% of stage R sleep. | | | Bilevel at 8 over 4 cm was restarted and then was switched to | | | bilevel ST with a backup rate of 10 bpm, and patient ended with the 5 | | | level-ST at "7/13 cm H2O" ? With backup rate of 12 BPM. It was | | | thought that the bilevel ST was needed because patient had central | | | alveolar hypoventilation. TCO2 or EtCO2 was not mentioned in any of | | | the sleep studies. Download on 07/02/18 showed that patient was on | | | bilevel-ST at 16/11 cm H2O with a breath rate of 12 BPM. Detailed | | | report showsed that AHI was elevated with occasional maximum at 40.She | | | had not used the machine for the past 5-6 months.She stated since she | | | stopped using her bilevel machine she has had problems with excessive | | | daytime sleepiness, drowsy driving, and not feeling rested when she | | | wakes up in the morning. When she was using her machine they were | | | not the problem. Discharge summary from ER notes dated January 08 | | | 2017 indicates that she had an overnight oximetry on her bilateral | | | while she was hospitalized, and noted to have residual hypoxemia.She | | | stated she was told to stop using her bilevel machine until she would | | | be able to use the bilevel with oxygen. she stated that the machine | | | made her waking up with panic attack, feeling that she could not | | | breathe, and she would get some "strokelike symptoms." She stated | | | she had this problem one more time before she was hospitalized in | | | December 2017.she was only using oxygen 3 LPM at night. She was | | | already on oxygen during the day for her COPD through her | | | evidence specialist. We performed a CPAP titration study on April 28, 2018, | | | to determine the appropriate setting and pressure and also to see if | | | she really needed nocturnal supplemental oxygen.The titration study | | | was satisfactory. CPAP was not tried as patient had previously showed | | | CPAP intolerance. Bilevel-S was titrated up from 10/5 cm H2O to | | | 19/15 cm H2O . Pressure of 13/8 cm H2O appeared to control obstructive | | | sleep apnea in supine non-REM sleep. In REM sleep, patient started | | | to have numbers of obstructive sleep apnea at pressure of 13/8 cm H2O, | | | and pressure was increased. Pressure of 16/11 cm H2O appeared to | | | relatively control obstructive sleep apnea in supine REM sleep. | | | Pressure continued to be increased for occasional snoring and | | | presumed obstructive events. It did not appear to make any positive | | | difference, and made Cflow look even worse. Also, patient started to | | | have paradoxical breathing as pressure was increased. Somewhere | | | in the middle of the study patient woke up, calling with the | | | urgency, stated that "she woke like she did last year " panic with | | | stroke like symptoms". Her SPO2 was above 90% and cflow was normal | | | right before she woke up. I suspect higher pressures, mask leak, and | | | anxiety caused these symptoms. Entire study time was performed on | | | room air and supplemental oxygen was not added. Wake SPO2 was in the | | | high 90%. Mean SpO2 was 96 %, brennon SpO2 was 91 %, and amount of | | | total sleep time spent below SpO2 of 90% was 0 %. Transcutaneous CO2 | | | ranged 35-37 mmHg during supine wake, and remained between 38 and 40 | | | mmHg for entire study time. Hypoventilation was not observed. | | | Previous sleep study reports(external) mentioned that patient had | | | hypoventilation during sleep, though CO2 was not measured in those | | | sleep studies. Patient was restarted on bilevel-S at 15/11 cm H2O. | | | We made sure that she was not on bilevel ST. His download in | | | follow-up visit showed excessive leak and elevated AHI. Even after | | | they excessive limb which was addressed by changing the mask and Gupta | | | was much lower, average AHI was 6 and 13. It was sometimes | | | higher. Patient continued to have awakenings at night, and also | | | excessive daytime sleepiness. Though one of the reasons of her | | | excessive daytime sleepiness is her chronic sleep deprivation, but | | | this sleep study was performed to once again reevaluate her baseline | | | sleep related breathing disorder. BMI: 27.5 Technical Information: | | | Please see technical data which is attached. Definitions (The AASM | | | Manual for the Scoring of Sleep and Associated Events, Version 2.5; | | | 2018): Apnea: There is a drop in the peak signal excursion by 90% or | | | greater of pre-event baseline using an oronasal thermal sensor | | | (diagnostic study), PAP device flow (titration study), or an | | | alternative apnea sensor (diagnostic study); the duration of the 90% | | | or greater drop in sensor signal is 10 seconds or longer. | | | Obstructive Apnea: Event associated with continued or increased | | | inspiratory effort throughout the entire period of absent airflow. | | | Central Apnea: Event associated with absent inspiratory effort | | | throughout the entire period of absent airflow. Mixed Apnea: Event | | | associated with absent inspiratory effort in the initial portion of | | | the event followed by resumption of inspiratory effort during the | | | second portion of the event. Hypopnea: Nasal pressure excursion drop | | | by 30% or more from baseline, lasting at lease 10 seconds and 90% of | | | the event's duration meets this amplitude criteria. This is associated | | | with a 4% or greater desaturation from pre-baseline Respiratory | | | Event Related Arousal: A sequence of breaths lasting 10 seconds or | | | longer characterized by increasing respiratory effort or by flattening | | | of the inspiratory portion of the nasal pressure (diagnostic study) | | | or PAP device flow (titration study) waveform leading to arousal from | | | sleep when the sequence of breaths does not meet criteria for an apnea | | | or hypopnea. REVELANT MEDICATIONS: Gabapentin, prednisone, | | | tramadol, Ziprasidone. SUBJECTIVE:The patient rated sleep quality | | | during sleep study as usual.Jackhammer Splitter Operator note: Patient continues to | | | struggle with mask seal at home. Tech noticed that this might be due | | | to lack of molars. In spite of leak she's been using bilevel every | | | night. SLEEP ARCHITECTURE AND EEG:? Lights out was 11:0 1 PM, and | | | lights on was 05:45 AM. Patient was woken up shortly after 4 AM | | | per her request so she could self administer her morning | | | medications. She was surprised when she was informed that she had | | | been sleeping. ? Total sleep time was 321.5 minutes. Sleep | | | efficiency was 79.6% and was decreased.? Sleep onset latency was 48.5 | | | minutes and was increased.? REM latency was 85.5 minutes and was | | | within normal limits.? Percent of time in stage N3 was 17.9% and was | | | within normal limits.? Percent of time in stage REM was 17.1 % and was | | | within normal limits.? Arousal Index for this diagnostic study was | | | 24.3/hour and was mildly increased, with 18.7 respiratory | | | arousals/hour and 5.6 spontaneous arousals/hour. RESPIRATORY:? | | | Respiratory disturbance index (RDI) was 29.9, consisting of total 11 | | | hypopneas, 25 obstructive apneas, 0 mixed apneas, and 56 central | | | apneas and 68 RERAs. AHI was 17.2 and was moderately elevated.? | | | Patient spent 100% of total sleep time in supine position. ? Sleep | | | disordered breathing was not significantly worsened in REM sleep with | | | REM AHI of 26.2 and REM RDI of 29.5. Non-REM AHI was 15.3 and | | | non-REM RDI was 29.9. ? Mean SpO2 was 96 %, brennon SpO2 was 89%, and | | | amount of total sleep time spent below SpO2 of 88% was 0. 4% Oxygen | | | Desaturation Index (VICTOR MANUEL) was 4.5 and was not elevated.? Snoring was | | | intermittent and mouth breathing noted as well.? ETCO2 was not | | | elevated.? There were numbers of central apneas with occasional | | | periodicity in supine NREM sleep. Post-arousal central apneas noted. | | | Interestingly, central apneas were occasionally associated with | | | paradoxical breathing. Tor-Stone breathing was not observed. | | | LIMB MOVEMENTS:? Total sleep periodic limb movement index was 0 and | | | was not increased. EKG:Normal sinus rhythm was noted with mean heart | | | rate of 62, 59, 63 beats per minute in wake, non-REM, and REM sleep | | | respectively.. INTERPRETATION: - This polysomnography showed sleep | | | apnea which was both obstructive and central in nature, and it was | | | moderate in frequency of events, with no significant desaturations. | | | Patient spent entire study time in supine position. Sleep apnea | | | was not significantly worsened worsened in stage R sleep. 17.1% of | | | stage R sleep was captured. Bernnon SpO2 was 89%, and amount of total | | | sleep time spent below SpO2 of 88% was 0. Frequent paradoxical | | | breathing, at times in the absence of obvious respiratory events, | | | observed. Hypoventilation was not observed. - Sleep efficiency was | | | mildly decreased, and sleep was mildly fragmented. - Periodic limb | | | movement index was not elevated. RECOMMENDATIONS: Since patient is | | | refusing to try CPAP again, and since her titration study on 04/28/18 | | | showed that bilevel was able to control her sleep apnea especially if | | | leak is controlled, we will continue with bilevel-S at 08/01 and make | | | sure the leak is controlled. Other issue that is contributing to her | | | excessive daytime sleepiness is her sleep/wake pattern, long naps, | | | insufficient sleep at night, lack of physical activity, etc. Meghan | | | MD Jose Portions of this chart may have been created with [email or web address] | | | voice recognition software. Occasional wrong-word or | | | | | | sound-alike | | | substitutions may have occurred due to the inherent limitations of | | | voice recognition software. Please read the chart carefully and | | | recognize, using context, where these substitutions have occurred. | | |spontaneous arousals/hour. | | | | | |RESPIRATORY: | | |? Respiratory disturbance index (RDI) was 29.9, consisting of | | |total 11 hypopneas, 25 obstructive apneas, 0 mixed apneas, and 56 | | |central apneas and 68 RERAs. AHI was 17.2 and was moderately | | |elevated. | | |? Patient spent 100% of total sleep time in supine position. | | |? Sleep disordered breathing was not significantly worsened in | | |REM sleep with REM AHI of 26.2 and REM RDI of 29.5. Non-REM AHI | | |was 15.3 and non-REM RDI was 29.9. | | |? Mean SpO2 was 96 %, brennon SpO2 was 89%, and amount of total | | |sleep time spent below SpO2 of 88% was 0. 4% Oxygen Desaturation | | |Index (VICTOR MANUEL) was 4.5 and was not elevated. | | |? Snoring was intermittent and mouth breathing noted as well. | | |? ETCO2 was not elevated. | | |? There were numbers of central apneas with occasional | | |periodicity in supine NREM sleep. Post-arousal central apneas | | |noted. Interestingly, central apneas were occasionally | | |associated with paradoxical breathing. Tor-Stone breathing | | |was not observed. | | | | | |LIMB MOVEMENTS: | | |? Total sleep periodic limb movement index was 0 and was not | | |increased. | | | | | | | | |EKG: | | |Normal sinus rhythm was noted with mean heart rate of 62, 59, 63 | | |beats per minute in wake, non-REM, and REM sleep respectively.. | | | | | |INTERPRETATION: | | | | | |- This polysomnography showed sleep apnea which was both | | |obstructive and central in nature, and it was moderate in | | |frequency of events, with no significant desaturations. Patient | | |spent entire study time in supine position. Sleep apnea was not | | |significantly worsened worsened in stage R sleep. 17.1% of | | |stage R sleep was captured. Brennon SpO2 was 89%, and amount of | | |total sleep time spent below SpO2 of 88% was 0. Frequent | | |paradoxical breathing, at times in the absence of obvious | | |respiratory events, observed. Hypoventilation was not observed. | | | | | |- Sleep efficiency was mildly decreased, and sleep was mildly | | |fragmented. | | | | | |- Periodic limb movement index was not elevated. | | | | | |RECOMMENDATIONS: | | | | | |Since patient is refusing to try CPAP again, and since her | | |titration study on 04/28/18 showed that bilevel was able to control | | |her sleep apnea especially if leak is controlled, we will | | |continue with bilevel-S at 08/01 and make sure the leak is | | |controlled. Other issue that is contributing to her excessive | | |daytime sleepiness is her sleep/wake pattern, long naps, | | |insufficient sleep at night, lack of physical activity, etc. | | | | | |Meghan Garcia MD | | | | | |Portions of this chart may have been created with im3D voice | | |recognition software. Occasional wrong-word or sound-alike | | |substitutions may have occurred due to the inherent limitations | | |of voice recognition software. Please read the chart carefully | | |and recognize, using context, where these substitutions have | | |occurred. | | | | | + + + + + | Procedure Note | + + | Meghan Garcia MD - 08/10/2018 9:50 AM PDT [facility] | | [place], [place] [id number] Report on Rosario Corona | Frances Malik performed on August 03, 2018.PATIENT IDENTIFICATION:Rosario Malik IS a 53 | | y.o..-year-old female. with a history of COPD, bipolar disorder, hypothyroidism, | | paroxysmal atrial tachycardia, GERD, interstitial cystitis, and mild obstructive sleep | | apnea. She cannot remember how many sleep studies she has had so far. However, she was | | on CPAP for several years before she was switched to bilevel in 2015. I reviewed the | | notes from Dr. Alarcon in [place], [place]. It indicates that patient had | | CPAP intolerance because of her COPD. She had a diagnostic polysomnography on January | | 2014. Sleep efficiency was 83% and mildly decreased. There was 17% of stage R | | sleep.No comments about the position of sleep. AHI was 5.9. Apnea index was 1.2. | | RDI was 8. Brennon oxygen saturation was 83%. The saturation was less than 90% for | | 25% of time. She had a titration study and April 17, 2015. Sleep efficiency was | | 92%. There was 6% of stage R sleep. Bilevel at 8 over 4 cm was restarted and then | | was switched to bilevel ST with a backup rate of 10 bpm, and patient ended with the 5 | | level-ST at "7/13 cm H2O" ? With backup rate of 12 BPM. It was thought that the | | bilevel ST was needed because patient had central alveolar hypoventilation. TCO2 or | | EtCO2 was not mentioned in any of the sleep studies. Download on 07/02/18 showed that | | patient was on bilevel-ST at 16/11 cm H2O with a breath rate of 12 BPM. Detailed | | report showsed that AHI was elevated with occasional maximum at 40.She had not used the | | machine for the past 5-6 months.She stated since she stopped using her bilevel machine | | she has had problems with excessive daytime sleepiness, drowsy driving, and not feeling | | rested when she wakes up in the morning. When she was using her machine they were not | | the problem. Discharge summary from ER notes dated 2018 indicates that | | she had an overnight oximetry on her bilateral while she was hospitalized, and noted to | | have residual hypoxemia.She stated she was told to stop using her bilevel machine until | | she would be able to use the bilevel with oxygen. she stated that the machine made her | | waking up with panic attack, feeling that she could not breathe, and she would get some | | "strokelike symptoms." She stated she had this problem one more time before she was | | hospitalized in December 2017.she was only using oxygen 3 LPM at night. She was | | already on oxygen during the day for her COPD through her evidence specialist.We performed a | | CPAP titration study on April 28, 2018, to determine the appropriate setting and pressure | | and also to see if she really needed nocturnal supplemental oxygen.The titration study | | was satisfactory. CPAP was not tried as patient had previously showed CPAP intolerance. | | Bilevel-S was titrated up from 10/5 cm H2O to 19/15 cm H2O . Pressure of 13/8 cm H2O | | appeared to control obstructive sleep apnea in supine non-REM sleep. In REM sleep, | | patient started to have numbers of obstructive sleep apnea at pressure of 13/8 cm H2O, | | and pressure was increased. Pressure of 16/11 cm H2O appeared to relatively control | | obstructive sleep apnea in supine REM sleep. Pressure continued to be increased for | | occasional snoring and presumed obstructive events. It did not appear to make any | | positive difference, and made Cflow look even worse. Also, patient started to have | | paradoxical breathing as pressure was increased. Somewhere in the middle of the study | | patient woke up, calling with the urgency, stated that "she woke like she did last year | | " panic with stroke like symptoms". Her SPO2 was above 90% and cflow was normal right | | before she woke up. I suspect higher pressures, mask leak, and anxiety caused these | | symptoms. Entire study time was performed on room air and supplemental oxygen was not | | added. Wake SPO2 was in the high 90%. Mean SpO2 was 96 %, brennon SpO2 was 91 %, and | | amount of total sleep time spent below SpO2 of 90% was 0 %. Transcutaneous CO2 ranged | | 35-37 mmHg during supine wake, and remained between 38 and 40 mmHg for entire study | | time. Hypoventilation was not observed. Previous sleep study reports(external) | | mentioned that patient had hypoventilation during sleep, though CO2 was not measured in | | those sleep studies. Patient was restarted on bilevel-S at 15/11 cm H2O. We made sure | | that she was not on bilevel ST. His download in follow-up visit showed excessive leak | | and elevated AHI. Even after they excessive limb which was addressed by changing the | | mask and Gupta was much lower, average AHI was 6 and 13. It was sometimes higher. | | Patient continued to have awakenings at night, and also excessive daytime sleepiness. | | Though one of the reasons of her excessive daytime sleepiness is her chronic sleep | | deprivation, but this sleep study was performed to once again reevaluate her baseline | | sleep related breathing disorder.BMI: 27.5Technical Information: Please see technical | | data which is attached.Definitions (The AASM Manual for the Scoring of Sleep and | | Associated Events, Version 2.5; 2018): Apnea: There is a drop in the peak signal | | excursion by 90% or greater of pre-event baseline using an oronasal thermal sensor | | (diagnostic study), PAP device flow (titration study), or an alternative apnea sensor | | (diagnostic study); the duration of the 90% or greater drop in sensor signal is 10 | | seconds or longer. Obstructive Apnea: Event associated with continued or increased | | inspiratory effort throughout the entire period of absent airflow. Central Apnea: Event | | associated with absent inspiratory effort throughout the entire period of absent | | airflow. Mixed Apnea: Event associated with absent inspiratory effort in the initial | | portion of the event followed by resumption of inspiratory effort during the second | | portion of the event. Hypopnea: Nasal pressure excursion drop by 30% or more from | | baseline, lasting at lease 10 seconds and 90% of the event's duration meets this | | amplitude criteria. This is associated with a 4% or greater desaturation from | | pre-baseline Respiratory Event Related Arousal: A sequence of breaths lasting 10 seconds | | or longer characterized by increasing respiratory effort or by flattening of the | | inspiratory portion of the nasal pressure (diagnostic study) or PAP device flow | | (titration study) waveform leading to arousal from sleep when the sequence of breaths | | does not meet criteria for an apnea or hypopnea. REVELANT MEDICATIONS: Gabapentin, | | prednisone, tramadol, Ziprasidone.SUBJECTIVE:The patient rated sleep quality during | | sleep study as usual.Jackhammer Splitter Operator note: Patient continues to struggle with mask seal at | | home. Tech noticed that this might be due to lack of molars. In spite of leak she's | | been using bilevel every night.SLEEP ARCHITECTURE AND EEG:? Lights out was 11:0 1 PM, | | and lights on was 05:45 AM. Patient was woken up shortly after 4 AM per her request so | | she could self administer her morning medications. She was surprised when she was | | informed that she had been sleeping. ? Total sleep time was 321.5 minutes. Sleep | | efficiency was 79.6% and was decreased.? Sleep onset latency was 48.5 minutes and was | | increased.? REM latency was 85.5 minutes and was within normal limits.? Percent of time | | in stage N3 was 17.9% and was within normal limits.? Percent of time in stage REM was | | 17.1 % and was within normal limits.? Arousal Index for this diagnostic study was | | 24.3/hour and was mildly increased, with 18.7 respiratory arousals/hour and 5.6 | | spontaneous arousals/hour. RESPIRATORY:? Respiratory disturbance index (RDI) was 29.9, | | consisting of total 11 hypopneas, 25 obstructive apneas, 0 mixed apneas, and 56 central | | apneas and 68 RERAs. AHI was 17.2 and was moderately elevated.? Patient spent 100% of | | total sleep time in supine position. ? Sleep disordered breathing was not significantly | | worsened in REM sleep with REM AHI of 26.2 and REM RDI of 29.5. Non-REM AHI was 15.3 | | and non-REM RDI was 29.9. ? Mean SpO2 was 96 %, brennon SpO2 was 89%, and amount of total | | sleep time spent below SpO2 of 88% was 0. 4% Oxygen Desaturation Index (VICTOR MANUEL) was 4.5 and | | was not elevated.? Snoring was intermittent and mouth breathing noted as well.? ETCO2 | | was not elevated.? There were numbers of central apneas with occasional periodicity in | | supine NREM sleep. Post-arousal central apneas noted. Interestingly, central apneas | | were occasionally associated with paradoxical breathing. Tor-Stone breathing was | | not observed. LIMB MOVEMENTS:? Total sleep periodic limb movement index was 0 and was | | not increased. EKG:Normal sinus rhythm was noted with mean heart rate of 62, 59, 63 | | beats per minute in wake, non-REM, and REM sleep respectively.. INTERPRETATION:- This | | polysomnography showed sleep apnea which was both obstructive and central in nature, and | | it was moderate in frequency of events, with no significant desaturations. Patient | | spent entire study time in supine position. Sleep apnea was not significantly worsened | | worsened in stage R sleep. 17.1% of stage R sleep was captured. Brennon SpO2 was 89%, | | and amount of total sleep time spent below SpO2 of 88% was 0. Frequent paradoxical | | breathing, at times in the absence of obvious respiratory events, observed. | | Hypoventilation was not observed.- Sleep efficiency was mildly decreased, and sleep was | | mildly fragmented. - Periodic limb movement index was not elevated.RECOMMENDATIONS:Since | | patient is refusing to try CPAP again, and since her titration study on 04/28/18 showed | | that bilevel was able to control her sleep apnea especially if leak is controlled, we | | will continue with bilevel-S at 08/01 and make sure the leak is controlled. Other issue | | that is contributing to her excessive daytime sleepiness is her sleep/wake pattern, long | | naps, insufficient sleep at night, lack of physical activity, etc. Meghan Garcia, | | MDPortions of this chart may have been created with im3D voice recognition software. | | Occasional wrong-word or | | | | sound-alike | | substitutions may have occurred due to the inherent limitations of voice recognition | | software. Please read the chart carefully and recognize, using context, where these | | substitutions have occurred. | + + documented in this encounter Visit Diagnoses + + | Diagnosis | + + | GARRY (obstructive sleep apnea) Obstructive sleep apnea (adult) (pediatric) | + + documented in this encounter
--- OUTSIDE RECORDS SUMMARY | ~2019-02-28 | XMS | Encounter Summary ---
Demographics + + + | Address | [address] | | | [place] [address] | + + + | Home Phone [...] Team Providers + +------+ + | Care Classified Copy Control Clerk Name | Role | Phone | + +------+ + | Juan Cherry DO | PCP | | + +------+ + Encounter Details +--------+ + + + + | Date | Type | Department | Care Team | Description | +--------+ + + + + | 12/22/ | Hospital | [facility] | Yecenia Gallegos | | | 2012 - | Encounter | [facility] | Yinka Aguirre MD [address] | | | | | [address] | [facility] | | | 12/24/ | | [place] [address] | [place] [address] | | | 2012 | | [phone] | [phone] John, | | | | | | [...] Lucian Lopez MD - 12/24/2012 10:13 AM [place], [place] [address] Patient Name: JADYN SCHMITZ Provider: Lucian Lopez MD Unit #: [id number] Location: [facility] : 1965 ADMISSION DATE: 12/22/2012 DISCHARGE DATE: 12/24/2012 PRIMARY CARE PROVIDER: Juan Cherry DO. CASING WRINGER OPERATOR: Loreta London MD. DISCHARGING PHYSICIAN: Lucian Lopez MD. DISCHARGE DIAGNOSES 1. ACUTE EXACERBATION OF CHRONIC OBSTRUCTIVE PULMONARY DISEASE. IMPROVED. 2. DEPRESSION/FIBROMYALGIA. 3. HYPOTHYROIDISM. 4. OBSTRUCTIVE SLEEP APNEA. HISTORY OF PRESENT ILLNESS: Please refer to the history and physical examination note dicta kelley on 12/22. 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 She came in with shortness of [...] BY: Lucian Lopez MD Hospitalist JOB #: [id number] EXT JOB #:[id number] EDITED: 12/27/2012 07:16 <<Signature on File>> Lucian [...] | | | [facility]. | | | | | | [...] [place] | | | | | | [place] [address] | | | | | | [phone] | | | | | | | [...] + | [facility] | [address] | [place] | [phone] | | [facility] | | [address] | | | - LABORATORY | | | | + + + + + | [facility] | [address] | [place], [place] | | | [facility] | | [address] | | | - LABORATORY | | [...] [address] | [place] | [phone] | | [facility] | | [address] | | | - LABORATORY | | | | + + + + + | [facility] | [address] | [place], [place] | | | [facility] | | [address] | | | - LABORATORY | | [...] + | [facility] | [address] | [place] | [phone] | | [facility] | | [address] | | | - LABORATORY | | | | + + + + + | [facility] | [address] | [place] | | | [facility] | | [address] | | | - LABORATORY | | [...] + | [facility] | [address] | [place] | [phone] | | [facility] | | [address] | | | - LABORATORY | | | | + + + + + | [facility] | [address] | [place] | | | [facility] | | [address] | | | - LABORATORY | | | | + + + + + XR Chest AP Portable (12/22/2012 12:40 PM PDT) + + | Specimen | + + | | + + + + + | Narrative | Performed At | + + + | [facility] | [facility] | | Department [address] , [place] | [facility] | | [ rep [address]] [ rep [facility] | | st zip] Signed | - IMAGING | | | | | Patient Name: JADYN SCHMITZ | | | Physician: JAZMYN : 1965 Age: 47 Sex: F Unit | | | #: [id number] Exam Date: 12/22/12 Location: | | | [address] [place] [address] Report #: [id number] Page: | | | %(RAD)RES..mtdd.print.filter("pg") of %(RAD) | | | RES..mtdd.print.filter("tpg") | | | | | | Accession Number: [id number] | | | CHEST PORTABLE CLINICAL HISTORY: [...] | | | Transcribed Date/Time: 12/22/2012 13:10 Health Educator: | | | <<Signature on File>> | | | Kobe | | | MD Tor12/22/12 1426 <Electronically signed by Kobe Lentz MD> | | | Kobe Lentz MD 12/22/12 1240 Health Educator: Webbrianx | | | [id number]/29/13 1310 Yecenia Gallegos MD | | | | | + + + + + + + + | Performing | Address | City/State/Zipcode | Phone Number | | Organization | | | | + + + + + | [facility] | [address] | [place] | [phone] | | [facility] | | [address] | | | - IMAGING | | [...] | | | | | | [facility] | | | | | | [...] [address] | [place] | [phone] | | [facility] | | [address] | | | - LABORATORY | | | | + + + + + | [facility] | [address] | [place] | | | [facility] | | [address] | | | - LABORATORY | | [...] 11 | 7 - 18 mg/dL | [facility] | | | | | | [facility] | | | | | | MEDICAL | | | | | | CENTER - | | | | | | LABORATORY | | + + + + + + | Creatinine | 0.81 | 0.60 - 1.30 | [facility] | | | | | mg/dL | [facility] | | | | | | MEDICAL | | | | | | CENTER - | | | | | | LABORATORY | | + + + + + + | Estimated | >60Comment: For | >60 mL/min/A | [facility] | | | GFR | -Americans, | [...] + | [facility] | [address] | [place] | [phone] | | [facility] | | [address] | | | - LABORATORY | | | | + + + + + | [facility] | [address] | [place] | | | [facility] | | [address] | | | - LABORATORY | | | | + + + + + documented in this encounter Visit Diagnoses Not on filedocumented in this encounter
--- OUTSIDE RECORDS SUMMARY | ~2019-02-28 | XMS | Encounter Summary ---
Demographics + + + | Address | [address] | | | [place] [address] | + + + | Home Phone [...] Team Providers + +------+ + | Care Hop Strainer Name | Role | Phone | + [...] + + | 01/13/ | Office | [facility] | [place], | Central sleep apnea; | | 2011 | Visit | PULMONARY [address] | Loreta Alonso MD | Obstructive sleep | | | | [place], | | apnea; Insomnia | | | | [place] [address] | | | | | | [phone] | | | +--------+---------+ + + + [...] | | | | | [place] [address] | | | | | | [phone] | | | | | | | [...]
--- OUTSIDE RECORDS SUMMARY | ~2019-02-28 | XMS | Encounter Summary ---
Demographics + + + | Address | [address] | | | [place] [address] | + + + | Home Phone | | + + + | Preferred Language | Unknown | + + + | Marital Status | Single | + + + | Lutheran Affiliation | 1041 | + + + | Race | Unknown | + + + | Ethnic Group | Unknown | + + + Author + + + | Author | [facility] | | | and [place] | + + + | Organization | [facility] | [...] Team Providers + +------+ + | Care Hosted Services Analyst Name | Role | Phone | + +------+ + | Juan Cherry DO | PCP | | + +------+ + Reason for Visit + + + | Reason | Comments | + + + | Initial Assessment | | + + + Evaluate [...] | with brief | [address] | | | | n | loss of | [address] | [place], | | | | | consciousnes | [place], | [place] [address] | | | | | s | [place] [address] | Phone: | | | | | Post-concuss | Phone: | [phone] | | | | | ion vertigo | [phone] | Fax: | | | | | S06.0X9A | Fax: | [phone] | | | | | (ICD-10-CM) | [phone] | | | | | | - [...] Description | +--------+---------+ + + + | 05/01/ | Office | [facility] | Aaron Rodriguez, | Concussion with | | 2017 | Visit | [facility] PT | MD [address] | brief (less than one | | | | OP [address] | [place] | hour) loss of | | | | [place] | [phone] | consciousness | | | | [address] | | (Primary Dx); | | | | [phone] | Lakeshia Cleary, PT | Dizziness; Impaired | | | | | [address] | mobility and | | | | | [place] | activities of daily | | | | | [id number] | living; Intractable | | | | | | acute post-traumatic | | | | | | [...] encounter Progress Notes Lakeshia Barkley, PT - 05/01/2016 12:42 PM PSTFormatting of this note might be different from t he original. Physical Therapy Plan of Care Date: 05/01/2016 Patient Name: Rosario Malik Date of : 1965 Encounter Diagnoses Code Name Primary? S06.0X9A Concussion with brief (less than one hour) loss of consciousness Yes R42 Dizziness Z74.09 Impaired mobility and activities of daily living G44.311 Intractable acute post-traumatic headache Date of Onset: 04/02/2016 Start of Care Date: 05/01/2016 Requested # of Visits: 12 visits 1x/week for 12 weeks Certification From: 05/01/2016 Certification To: 07/24/2016 Clinical Impression: Patient presents to physical therapy with a recent trip/fall resultin g in a concussion and headaches 1-2x/week. Patient reports that on 04/02/16 she tripped over h er O2 line and and hit her head on the window sill. Pt reports that she was briefly unconsci ous but was able to get up on her own without assistance. Patient now has headaches, left ledezma nd pain and dizziness/imbalance and impaired memory and is sensitive to light/sound. Objecti ve exam reveals impairments with oculomotor function, balance and gait These impairments ar e causing functional limitations with walking, balance and requires increased time for all a ctivities which are restricting this patient s ability to participation in ADL's/IADL's an d community access/events. Signs and symptoms are consistent with concussion and vestibular hypofunction. Complexities contributing to frequency and duration of therapy: low activity tolerance, COPD/supplemental O2, pt is very sensitive to any movement. Goals: Patient Reported Outcome Goals Patient Reported Outcome Goals: PSFS, DHI Patient Specific Functional Scale Goal 1: Improve sensory usage with a M-CTSIB score with n ormal sways in conditions 1-4 Patient Specific Functional Scale Goal 1 Status Comment: impaired in condition 2 and 4 (eye s closed) Patient Specific Functional Scale Goal 2: Patient will be Independent in a home exercise pr ogram to address symptoms of dizziness/vertigo/imbalance to decrease fall risk and improve a bility to perform ADL's. Patient Specific Functional Scale Goal 2 Status Comment: initiated HEP Dizziness Handicap Index Goal: Improve DHI score from 48 to <34 to reduce risk of falls and increase functional mobility allowing for improved ability to complete ADL activities. Dizziness Handicap Index Status: currently 48/100 PT G-Codes Functional Assessment Tool Used: DHI Score: 48 Functional Limitation: Mobility: Walking and moving around Mobility: Walking and Moving Around Current Status (G8978): At least 40 percent but less th an 60 percent impaired, limited or restricted Mobility: Walking and Moving Around Goal Status (G8979): At least 20 percent but less than 40 percent impaired, limited or restricted Treatment Plan/Interventions PT EvaluationPT [id number] - Therapeutic [id number] - Neuromuscular Reeducation9 7116 - Gait [id number] - Therapeutic [id number] - Manual [id number] - Self Care/Ho me Management Electronically signed by: Lakeshia Barkley PT, 05/01/2016 12:44 Patient Name: Rosario Malik/: 1965/ Associated attestation - Aaron Rodriguez MD - 05/01/2016 12:52 PM PSTAaron Rodriguez MD (Jr.) Lakeshia Barkley, PT - 05/01/2016 9:53 AM PSTFormatting of this note might be different from t zachariah original. [facility] PT OP [address] [place] [address] Physical Therapy Initial Assessment Date: 05/01/2016 Patient Information Patient Name: Rosario Malik Date of : 1965 Age: 51 y.o. History Problem Dizziness Impaired Mobility and Activities of Daily Living Concussion With Brief (Less Than One Hour) Loss of Consciousness Intractable Acute Post-Traumatic Headache Mechanism of injury: Trauma History of symptoms: pt reports that on 04/02/16 she tripped over her O2 line and and hit her head on the window sill. Pt reports that she was briefly unconscious, pt able to get up Ind . Previous level of function and limitations: no limitations (baseline is very inactive but i s ind. With all ADL's and meals), now requires increased time to complete all activities. 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 work, disabled Living situation: Pt lives with daughter and granddaughter. Pt lives in a 2 level home ([facility] downstairs) no railing so is very careful. 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 Last marijuana 2009 Sexual Activity: No Other Topics Concern None Social History [...] pulmonary disease. No acute cardiopulmonary abnorma lity. Encounter Diagnoses Code Name Primary? S06.0X9A Concussion with brief (less than one hour) loss of consciousness Yes R42 Dizziness Z74.09 Impaired mobility and activities of daily living G44.311 Intractable acute post-traumatic headache Date of Onset: 04/02/2016 Referring Provider: Aaron Rodriguez MD No history on file. Past Medical History Diagnosis Date Hypothyroidism Diverticulitis [...] [facility]) 10/28/2012 Overview: Managed by [facility] along with hypothyroidism Osteoarthritis Tachycardia Asthma Emphysema Migraine Sleep apnea uses BiPAP Oxygen dependent uses 2.5 liters most of the time Past Surgical History Procedure Laterality Date Hammer toe surgery right sided Hiatal hernia repair Hiatal hernia Kirk and bso Ovarian cysts, not cancer Colonoscopy 03/2010 Colonoscopy [facility] Knee surgery right Wrist surgery right Hysterectomy Other surgical history 02/28/2014 [facility] with Radial approach; Laterality: Left; Surgeon: Jared Mcdonough MD; Location: [facility] Tonsillectomy Age 6 Turbt N/A 11/22/2015 Procedure: Cystoscopy, Hydrodistention & Bladder Biopsy; Surgeon: Yinka Melendez; Location: [facility] Hernia repair 11/29/2015 [facility] Family History Problem Relation Age of Onset Asthma Father Other (see comment) Father hemachromatosis/Does not know his history well Alcohol abuse Father Gout Father Mental illness Father Thyroid disease Mother Arthritis Mother Mental illness Mother Asthma Sister Diabetes Paternal Aunt Emphysema Maternal Grandmother Cancer Maternal Grandmother Lung Diabetes Other Maternal Great Grandfather Heart disease Other Paternal side of family Developmental History Allergies Allergen Reactions Onion Anaphylaxis Doxycycline Hives Erythromycin Base Other (See Comments) Bloating and swelling, lips swell Macrolides And Ketolides Hives Nsaids Hives Pork Allergy Other (See Comments) GI distress Meperidine Panic attacks Prior Treatment: none Rehab Precautions Office Visit from 05/01/2016 in [facility] OP Rehab Precautions Precautions None Learning Style Patient's Optimum Learning Style: listening, reading, observation, performance of task Abuse Assessment Do you feel safe in your current relationship or home?: Yes Action taken by clinician: No concerns Fall Risk: Fall Risk 2 or more falls in the past year?: No Pain Assessment: Pain Rating Pre Assessment: 3 Location: headache EVALUATION: SUBJECTIVE: History of Presenting Problem: Rosario Malik is a 51 y.o. female who pre sents to therapy with recent trip/fall resulting in a concussion and headaches 1-2x/week. Eddie stover reports that on 04/02/16 she tripped over her O2 line and and hit her head on the window sill. Pt reports that she was briefly unconscious, pt able to get up Ind. Pt now has headac hes, left hand pain and dizziness and impaired memory and is sensitive to light/sound; only able to watch TV for approx 1 hour. Patient reports very inactive at baseline due to fatigue /SOB Functional Limitations: Patient now requires increased time to complete all activities, dif ficulty with reading/watching TV Precaution/special problems: supplemental O2 due to COPD/emphysema Patient s Goals: decreased LEDEZMA/improve balance OBJECTIVE: Observation/Posture/Alignment/Gait: Slight forward head/rounded shoulders Initial Assessment Progress Note / Discharge Progress Note / Discharge Left and Right Left Right Sensation: intact Neurovascular: normal Cerebellar Function /Coordination: Left and Right Left Right Finger to nose normal Heel to coronado normal Strength Testing: Grossly 4+/5 Oculomotor Exam Initial Assessment Progress Note / Discharge Progress Note / Discharge Left and Right Left Right Smooth pursuits(central) Slow/increased symptoms Saccades (central) Slow/increased symptoms Convergence normal Visual motion senstivity Increased symptoms after 3 revolutions Outcome Measure: Initial Assessment Progress Note / Discharge Dynamic Gait Index 16/24 (<19= predictive of falls in elderly) Dizziness Handicap Inventory 48/100 points (16-34 Points: mild handicap) (36-52 Points:moderate handicap) (54+ Points:severe handicap) Modified-Clinical Test of sensory interaction in balance (M-CTSIB) Condition 1(eyes open/fi rm surface):30seconds Condition 2(eyes closed/firm surface): 20 seconds Condition 3 (eyes open/foam surface): 30seconds Condition 4(eyes closed/foam surface):20 seconds Standardized Tests: Dizziness Handicap Inventory P1 Does looking up increase your problem?: 2-Sometimes E2 Because of your problem, do you feel frustrated?: 4-Yes F3 Because of your problem, do you restrict your travel for business or recreation?: 4-Yes P4 Does walking down an aisle of a supermarket increase your problem?: 0-No F5 Because of your problem, do you have difficutly getting into or out of bed?: 0-No F6 Does your problem significantly restrict your participation in social activities such as going out to dinner, going to movies, dancing, or to parties?: 2-Sometimes F7 Because of your problem, do you have difficulty reading?: 4-Yes P8 Does performing more ambitious activities, like sports, dancing, inorganic chemistry teacher such a s sweeping or putting dishes away, increase your problem?: 2-Sometimes E9 Because of your problem are you afraid to leave your home without having someone accompa ny you?: 2-Sometimes E10 Because of your problem, have you been embarrassed in front of others?: 2-Sometimes P11 Do quick movements of your head increase your problems?: 4-Yes F12 Because of your problem, do you avoid heights?: 2-Sometimes P13 Does turning over in bed increase your problem?: 0-No F14 Because of your problem, is it difficult for you to do strenuous housework or yardwork? : 4-Yes E15 Because of your problem, are you afraid people may think you are intoxicated?: 2-Someti mes F16 Because of your problem, is it difficult for you to go for a walk by yourself?: 0-No P17 Does walking down a sidewalk increase your problem?: 0-No E18 Because of your problem, is it difficult for you to concentrate?: 4-Yes F19 Because of your problem, is it difficult for you to walk around your house in the dark? : 4-Yes E20 Because of your problem, are you afraid to stay home alone?: 0-No E21 Because of your problem, do you feel handicapped?: 0-No E22 Has your problem placed stress on your relationships with members of your family or fri ends?: 0-No E23 Because of your problem, are you depressed?: 2-Sometimes F24 Does your problem interfere with your job or household responsibilities?: 2-Sometimes P25 Does bending over increase your problem?: 2-Sometimes Dizziness Handicap Total Score (Calculated): 48 Dizziness Handicap Index Goal: Improve DHI score from 48 to <34 to reduce risk of falls and increase functional mobility allowing for improved ability to complete ADL activities. Dizziness Handicap Index Status: currently 48/100 Assessment Patient presents to physical therapy with a recent trip/fall resulting in a concussion and headaches 1-2x/week. Patient reports that on 04/02/16 she tripped over her O2 line and and hit her head on the window sill. Pt reports that she was briefly unconscious but was able to ge t up on her own without assistance. Patient now has headaches, left hand pain and dizziness/ imbalance and impaired memory and is sensitive to light/sound. Objective exam reveals impair ments with oculomotor function, balance and gait These impairments are causing functional l imitations with walking, balance and requires increased time for all activities which are re stricting this patient s ability to participation in ADL's/IADL's and community access/alayna nts. Signs and symptoms are consistent with concussion and vestibular hypofunction. Complex ities contributing to frequency and duration of therapy: low activity tolerance, COPD/supple mental O2, pt is very sensitive to any movement. Rehabilitation potential: Patient demonstrates good potential to achieve established goals to address the documented impairments by participating in skilled physical therapy services. Goals: Patient Reported Outcome Goals Patient Reported Outcome Goals: PSFS, DHI Patient Specific Functional Scale Goal 1: Improve sensory usage with a M-CTSIB score with n ormal sways in conditions 1-4 Patient Specific Functional Scale Goal 1 Status Comment: impaired in condition 2 and 4 (eye s closed) Patient Specific Functional Scale Goal 2: Patient will be Independent in a home exercise pr ogram to address symptoms of dizziness/vertigo/imbalance to decrease fall risk and improve a bility to perform ADL's. Patient Specific Functional Scale Goal 2 Status Comment: initiated HEP Dizziness Handicap Index Goal: Improve DHI score from 48 to <34 to reduce risk of falls and increase functional mobility allowing for improved ability to complete ADL activities. Dizziness Handicap Index Status: currently 48/100 PT G-Codes Functional Assessment Tool Used: DHI Score: 48 Functional Limitation: Mobility: Walking and moving around Mobility: Walking and Moving Around Current Status (G8978): At least 40 percent but less th an 60 percent impaired, limited or restricted Mobility: Walking and Moving Around Goal Status (G8979): At least 20 percent but less than 40 percent impaired, limited or restricted Plan Date of Onset: 04/02/2016 Start of Care Date: 05/01/2016 Requested # of Visits: 12 visits 1x/week for 12 weeks Certification From: 05/01/2016 Certification To: 07/24/2016 Treatment Plan/Interventions PT EvaluationPT [id number] - Therapeutic [id number] - Neuromuscular Reeducation9 7116 - Gait [id number] - Therapeutic [id number] - Manual [id number] - Self Care/Ho me Management Patient and/or family has indicated understanding of treatment needs and actively participa kelley in the creation of this plan for care. Today's Treatment Start Time: 944 Stop time: 1044 Duration: 60 minutes Timed Treatment Codes: 30 minutes # of PT Visits: 1 Objective: Education of rehab timeline, focus and expectations. Education of balance system, positioni ng, pacing and movement strategies for self care. Provided handout and instructions for HEP daily as pt can tolerate: Smoother pursuits Saccades Visual motion: arc Next Visit: cont. To progress vestibular rehab and balance Electronically signed by: Lakeshia Barkley PT, 05/01/2016 12:44 Patient Name: Rosario Malik/: 1965/ documented in [...] [place] | | | | | | [address] | | | | | | | | +--------+---------+ + + + | 11/24/ | Office | Cardiology | [place], | | | 2020 | Visit | | SINDHU Erickson [address] | | | | | | [place], | | | | | | [place] [address] | | | | | | [phone] | | | | | | | [...] to 59 minutes | + + | Dizziness Dizziness and giddiness | + + | Impaired mobility and activities of daily living Mechanical problems with limbs | + + | Intractable acute post-traumatic headache Acute post-traumatic headache | + + documented in this encounter"
--- OUTSIDE RECORDS SUMMARY | ~2019-02-28 | XMS | Encounter Summary ---
Demographics + + + | Address | [address] | | | [place] [address] | + + + | Home Phone [...] Providers + +------+ + | Care Cattle Shipper Name | Role | Phone | + +------+ + PCP | Unavailable | + +------+ + Encounter Details +--------+ + + + + | Date | Type | Department | Care Team | Description | +--------+ + + + + | 04/05/ | [facility] | [facility] | | | | 2010 | Encounter | MED CTR XRAY [address] | | | | | | [place] | | | | | | [place] [address] | | | | | | [phone] | | | +--------+ + + + [...] [place] | | | | | | [address] | | | | | | | | +--------+---------+ + + + | 11/24/ | Office | Cardiology | [place], | | | 2019 | Visit | | SINDHU Erickson [address] | | | | | | [place], | | | | | | [place] [address] | | | | | | [phone] | | | | | | | | +--------+---------+ + + + documented as of this encounter Visit Diagnoses Not on filedocumented in this encounter"
--- OUTSIDE RECORDS SUMMARY | ~2019-02-28 | XMS | Encounter Summary ---
Demographics + + + | Address | [address] | | | [place] [address] | + + + | Home Phone [...] Providers + +------+ + | Care Budget Analyst Name | Role | Phone | + +------+ + | Juan Cherry DO | PCP | | + +------+ + Reason for Visit + + + | Reason | Comments | + + + | Emesis | | + + + | Abdominal Pain | | + + + Encounter Details +--------+ + + + + | Date | Type | Department | Care Team | Description | +--------+ + + + + | 04/12/ | Emergency | [facility] | Ozzy Aponte | Dyspepsia and | | 2015 | | [facility] | Ozzie Kebede MD | disorder of function | | | | CENTER [address] | [address] | of stomach (Primary | | | | [place], [place] | [place], [place] | Dx) | | | | [address] | [address] | | | | | [phone] | | | +--------+ + + + [...] + + + | Blood Pressure | 117/64 | 04/12/2015 10:00 PM | | | | | PST | | + + + + + | Pulse | 106 | 04/12/2015 10:00 PM | | | | | PST | | + + + + + | Temperature | 36.4 C (97.5 F) | 04/12/2015 7:48 PM | | | | | PST | | + + + + + | Respiratory Rate | 18 | 04/12/2015 10:00 PM | | | | | PST | | + + + + + | Oxygen Saturation | 91% | 04/12/2015 10:00 PM | | | | | PST | | + + + + + | Inhaled Oxygen | - | - | | | Concentration | | | | + + + + + | Weight | 78.9 kg (174 lb) | 04/12/2015 7:48 PM | | | | | PST | | + + + + + | Height | 157.5 cm (5' 2.01") | 04/12/2015 7:48 PM | | | | | PST | | + + + + + | Body Mass Index | 31.82 | 04/12/2015 7:48 PM | | | | | PST [...] of this encounter Discharge Instructions Instructions Ozzy Aponte MD - 04/12/2015Return for severe worsening abdomi nal pain nausea vomiting fever or other worsening symptoms. Please follow-up with her [facility] physician. documented in this encounter Medications at Time [...] | | [facility]. | | | | | | | [...] | | | | | | | ([facility]) | | | | | | + [...] [place] | | | | | | [address] | | | | | | | | +--------+---------+ + + + | 11/24/ | Office | Cardiology | [place] | | | 2019 | Visit | | SINDHU Erickson [address] | | | | | | [place], | | | | | | [place] [address] | | | | | | [phone] | | | | | | | | +--------+---------+ + + + + +------+--------+ + + | Name | Type | Priori | Associated Diagnoses | Date/Time | | | | ty | | | + +------+--------+ + + | ED INFORMATION | BALWINDER | Routin | | 04/12/2015 7:49 PM | | EXCHANGE | | e | | PST | + +------+--------+ + + documented as of this encounter Procedures + +--------+ + + + | Procedure Name | Priori | Date/Time | Associated Diagnosis | Comments | | | ty | | | | + +--------+ + + + | URINALYSIS WITH | STAT | 04/12/2015 | | Results for this | | MICROSCOPIC WITH | | 9:36 PM | | procedure are in the | | CULTURE IF INDICATED | | PST | | results section. | + +--------+ + + + | CT ABDOMEN PELVIS W | STAT | 04/12/2015 | | Results for this | | CONTRAST | | 9:02 PM | | procedure are in the | | | | PST | | results section. | + +--------+ + + + | XR CHEST AP PORTABLE | STAT | 04/12/2015 | | Results for this | | | | 8:44 PM | | procedure are in the | | | | PST | | results section. | + +--------+ + + + | TROPONIN I | STAT | 04/12/2015 | | Results for this | | | | 8:18 PM | | procedure are in the | | | | PST | | results section. | + +--------+ + + + | D-DIMER | Routin | 04/12/2015 | | Results for this | | | e | 8:18 PM | | procedure are in the | | | | PST | | results section. | + +--------+ + + + | CBC WITH | STAT | 04/12/2015 | | Results for this | | DIFFERENTIAL | | 8:18 PM | | procedure are in the | | | | PST | | results section. | + +--------+ + + + | LIPASE | STAT | 04/12/2015 | | Results for this | | | | 8:18 PM | | procedure are in the | | | | PST | | results section. | + +--------+ + + + | COMPREHENSIVE | STAT | 04/12/2015 | | Results for this | | METABOLIC PANEL | | 8:18 PM | | procedure are in the | | | | PST | | results section. | + +--------+ + + + | ECG 12 LEAD | STAT | 04/12/2015 | | Results for this | | | | 8:17 PM | | procedure are in the | | | | PST | | results section. | + +--------+ + + + | ED INFORMATION | Routin | 04/12/2015 | | | | EXCHANGE | e | 7:49 PM | | | | | | PST | | | + +--------+ + + + documented in this encounter Results Urinalysis with Microscopic with Culture if Indicated (04/12/2015 9:36 PM PST) + + + + + + | Component | Value | Ref Range | Performed | Pathologist | | | | | At | Signature | + + + + + + | Color | Yellow | Light Yellow, | [facility] | | | | | Yellow | [facility] | | | | | | [facility] | | | | | | CENTER - | | | | | | LABORATORY | | + + + + + + | Clarity | Cloudy (A) | Clear | [facility] | | | | | | [facility] | | | | | | [facility] | | | | | | CENTER - | | | | | | LABORATORY | | + + + + + + | pH, Urine | 7.5 | 5.0 - 8.0 | [facility] | | | | | | [facility] | | | | | | [facility] | | | | | | CENTER - | | | | | | LABORATORY | | + + + + + + | Specific | 1.015 | 1.001 - 1.030 | [facility] | | | [place] | | | [facility] | | [...] + + | Ketones, | Negative | Negative | [facility] | [...] + + + | Urobilinoge | 0.2 E.U./dL | 0.2 E.U./dL, | [facility] | | | n, Urine | | 1.0 E.U./dL | [facility] | | | | [...] + + + + + + | AMORPHOUS | Many (A) | None Seen /HPF | [facility] | | | [facility] | | | [facility] | | [...] [address] | [place] | [phone] | | [facility] | | [address] | | | - LABORATORY | | | | + + + + + CT Abdomen Pelvis w Contrast (04/12/2015 9:02 PM PST) + + | Specimen | + + | | + + + + + | Narrative | Performed At | + + + | CT ABDOMEN PELVIS W CONTRAST 04/12/2015 9:02 PM HISTORY: EMESIS, | [facility] | | ABDOMINAL PAIN. COMPARISON: Multiple priors most recent 03/08/14. | | | PROTOCOL: Axial images of the abdomen and pelvis were obtained | | | after administration of 100 mL Omnipaque 350. Coronal and sagittal | | | reformations were acquired. FINDINGS: There is some mild | | | scarring in the right middle lobe as well as the left lung base. | | | Heart size is normal. The liver demonstrates normal parenchyma. | | | The gallbladder is normal. Biliary ducts are unremarkable. The | | | spleen is unremarkable. The pancreas demonstrates normal parenchyma | | | and a normal pancreatic duct. Adrenal glands are normal. The | | | right kidney and visualized ureter are normal. There is a tiny | | | cyst in the posterior aspect of the left kidney that is too small to | | | characterize. The left ureter is normal. Surgical clips are at the | | | gastroesophageal junction with a residual small hiatal hernia versus | | | unwrapped Chanelle fundoplication. The appendix has a normal | | | appearance. There is sigmoid diverticulosis. Aorta is | | | nonaneurysmal. The iliac arteries are normal. There is no significant | | | abnormality in the portal veins, mesenteric veins, or systemic veins. | | | No enlarged lymph nodes are visualized within the omentum or | | | retroperitoneum. There is no evidence for ascites or free air. | | | Bladder is normal. There has been previous hysterectomy. Body | | | wall soft tissue structures are normal. There is mild right curvature | | | of the lumbar spine. IMPRESSION - No acute findings. | | | Postoperative changes at gastroesophageal junction with either a | | | residual small hiatal hernia versus unwrapped Chanelle fundoplication. | | | A preliminary report was sent by [facility] on 04/12/2015 at | | | 9:16 PM with no significant discrepancy. Dictated and Signed by: | | | Kobe Lentz MD Electronically signed: 04/13/2015 8:26 AM | | + + + + + | Procedure Note | + + | Reed, Rad Results In - 04/13/2015 8:[address] ABDOMEN PELVIS W CONTRAST 04/12/2015 | | 9:02 PMHISTORY: EMESIS, ABDOMINAL PAIN.COMPARISON: Multiple priors most recent | | 03/08/14.PROTOCOL: Axial images of the abdomen and pelvis were obtained | | afteradministration of 100 mL Omnipaque 350. Coronal and sagittal reformations | | wereacquired.FINDINGS:There is some mild scarring in the right middle lobe as well as | | the left lungbase. Heart size is normal.The liver demonstrates normal parenchyma. The | | gallbladder is normal. Biliaryducts are unremarkable.The spleen is unremarkable. The | | pancreas demonstrates normal parenchyma and anormal pancreatic duct. Adrenal glands are | | normal.The right kidney and visualized ureter are normal.There is a tiny cyst in the | | posterior aspect of the left kidney that is toosmall to characterize. The left ureter is | | normal.Surgical clips are at the gastroesophageal junction with a residual small | | hiatalhernia versus unwrapped Chanelle fundoplication. The appendix has a | | normalappearance. There is sigmoid diverticulosis.Aorta is nonaneurysmal. The iliac | | arteries are normal. There is no significantabnormality in the portal veins, mesenteric | | veins, or systemic veins. No enlarged lymph nodes are visualized within the omentum or | | retroperitoneum.There is no evidence for ascites or free air.Bladder is normal.There has | | been previous hysterectomy.Body wall soft tissue structures are normal. There is mild | | right curvature ofthe lumbar spine.IMPRESSION -No acute findings.Postoperative changes | | at gastroesophageal junction with either a residual smallhiatal hernia versus unwrapped | | Chanelle fundoplication.A preliminary report was sent by [facility] on 04/12/2015 at | | 9:16 PM with nosignificant discrepancy.Dictated and Signed by: Kobe Lentz MD | | Electronically signed: 04/13/2015 8:26 AM | |There is a tiny cyst in the posterior aspect of the left kidney that is too | |small to characterize. The left ureter is normal. | | | |Surgical clips are at the gastroesophageal junction with a residual small hiatal | |hernia versus unwrapped Chanelle fundoplication. The appendix has a normal | |appearance. There is sigmoid diverticulosis. | | | |Aorta is nonaneurysmal. The iliac arteries are normal. There is no significant | |abnormality in the portal veins, mesenteric veins, or systemic veins. | | | |No enlarged lymph nodes [...] | | | |Postoperative changes at gastroesophageal junction with either a residual small | |hiatal hernia versus unwrapped Chanelle fundoplication. | | | |A preliminary report was sent by [facility] on 04/12/2015 at 9:16 PM with no | |significant discrepancy. | | | |Dictated and Signed by: Kboe Lentz MD | | Electronically signed: 04/13/2015 8:26 AM | + + + +---------+ + + | Performing | Address | City/State/[facility] | Phone Number | | Organization | | | | + +---------+ + + | [facility] | | | | + +---------+ + + XR Chest AP Portable (04/12/2015 8:44 PM PST) + + | Specimen | + + | | + + + + + | Narrative | Performed At | + + + | PORTABLE CHEST X-RAY: 04/12/2015 8:44 PM CLINICAL HISTORY:EMESIS | [facility] | | ABDOMINAL PAIN COMPARISON: 01/20/2014 FINDINGS:Heart size is | | | normal. Aorta and pulmonary vasculature are within normal limits. No | | | mediastinal widening. Mild hyperinflation is suggested. Previously | | | questioned nodularity in the right suprahilar region is no longer | | | seen. No areas of abnormal lung density. No effusion or pneumothorax. | | | No acute bony abnormalities. No upper abdominal abnormalities. | | | IMPRESSION -Mild hyperinflation. No acute abnormalities. | | | Dictated and Signed by: Van Ren MD Electronically signed: | | | 04/13/2015 8:28 AM | | + + + + + | Procedure Note | + + | Reed, Rad Results In - 04/13/2015 8:31 AM PST PORTABLE CHEST X-RAY: 04/12/2015 8:44 PM | | | | CLINICAL HISTORY:EMESIS | | ABDOMINAL PAIN | | | | COMPARISON: 01/20/2014 | | | | FINDINGS:Heart size is normal. Aorta and pulmonary vasculature are within normal | | limits. No mediastinal widening. | | | | Mild hyperinflation is suggested. Previously questioned nodularity in the right | | suprahilar region is no longer seen. No areas of abnormal lung density. No | | effusion or pneumothorax. | | | | No acute bony abnormalities. No upper abdominal abnormalities. | | | | IMPRESSION -Mild hyperinflation. No acute abnormalities. | | | | Dictated and Signed by: Van Ren MD | | Electronically signed: 04/13/2015 8:28 AM | + + + +---------+ + + | Performing | Address | City/State/Zipcode | Phone Number | | Organization | | | | + +---------+ + + | [facility] | | | | + +---------+ + + D-Dimer (04/12/2015 8:18 PM PST) + + + + + + | Component | Value | Ref Range | Performed | Pathologist | | | | | At | Signature | + + + + + + | D-Dimer | <0.27Comment: This | <=0.50 ug/ml | [facility] | | | Quantitativ | quantitative D-Dimer | | [facility] | | | e | assay has been evaluated | | MEDICAL | | | | for screening for | | CENTER - | | | | venous thrombotic | | LABORATORY | | | | disease, and may be | | | | | | useful in ruling out, | | | | | | but not ruling in | | | | | | disease. Values less | | | | | | than 0.50 ug/mL FEU | | | | | | (Fibrinogen Equivalent | | | | | | Units) have a negative | | | | | | predictive value of | | | | | | approximately 95% for | | | | | | ruling out large | | | | | | pulmonary emboli or | | | | | | proximal deep vein | | | | | | thrombosis. Distal DVT | | | | | | are not excluded. An | | | | | | elevated D-dimer can be | | | | | | present in patients with | | | | | | liver disease, | | | | | | , eclampsia, | | | | | | heart disease and some | | | | | | cancers among other | | | | | | conditions. The presence | | | | | | of rheumatoid factor at | | | | | | a level >50 IU/mL may | | | | | | falsely elevate the | | | | | | determined D-dimer | | | | | | levels. | | | | + + + + + + + + | Specimen | + + | Blood | + + + + + + + | Performing | Address | City/State/Zipcode | Phone Number | | Organization | | | | + + + + + | [facility] | [address] | [place] | [phone] | | [facility] | | [address] | | | - LABORATORY | | | | + + + + + Troponin I (04/12/2015 8:18 PM PST) + + + + + [...] | | | | | | [employer] | | | | | [...] [address] | [place] | [phone] | | [facility] | | [address] | | | - LABORATORY | | | | + + + + + Lipase (04/12/2015 8:18 PM PST) + +-------+ + + + | Component | Value | Ref Range | Performed | Pathologist | | | | | At | Signature | + +-------+ + + + | Lipase | 22 | 0 - 60 U/L | [facility] | | | | | | [facility] | | | | | [...] [address] | [place] | [phone] | | [facility] | | [address] | | | - LABORATORY | | | | + + + + + Comprehensive Metabolic Panel (04/12/2015 8:18 PM PST) + + + + + [...] + + + + | K | 3.9 | 3.5 - 5.1 | [facility] | [...] Anion Gap | 12 | 3 - 16 mmol/L | [facility] | | | | | | [facility] | | | | | | MEDICAL | | | | | | CENTER - | | | | | | LABORATORY | | + + + + + + | Glucose | 167 (H) | 70 - 109 mg/dL | [...] | 0.84 | 0.60 - 1.30 | [facility] | [...] | | | FILTRATION | mL/min/1.73m2 | [facility] | | | [place] | RATE,ESTIMATED | | MEDICAL | | | | mL/min/1.70v5Qask than | | CENTER - | | [...] + + + + | Calcium | 10.4 | 8.3 - 10.5 | [facility] | | | | | mg/dL | [facility] | | | | | | MEDICAL | | | | | | CENTER - | | | | | | LABORATORY | | + + + + + + | Albumin | 3.8 | 3.2 - 5.0 g/dL | [facility] | | | | | | [facility] | | | | | | MEDICAL | | | | | | CENTER - | | | | | | LABORATORY | | + + + + + + | Bilirubin | 0.6 | 0.1 - 1.5 mg/dL | [facility] | | | Total | | | [facility] | | | | | | MEDICAL | | | | | | CENTER - | | | | | | LABORATORY | | + + + + + + | Total | 6.6 | 6.0 - 7.8 g/dL | [facility] | | | Protein | | | [facility] | | | | | | MEDICAL | | | | | | CENTER - | | | | | | LABORATORY | | + + + + + + | AST | 19 | 10 - 42 U/L | [facility] | | | | | | [facility] | | | | | | MEDICAL | | | | | | CENTER - | | | | | | LABORATORY | | + + + + + + | ALT | 13 | 6 - 45 U/L | [facility] | | | | | | [facility] | | | | | | MEDICAL | | | | | | CENTER - | | | | | | LABORATORY | | + + + + + + | Alkaline | 71 | 40 - 110 U/L | [facility] | | | Phosphatase | | | [facility] | | | | | | MEDICAL | | | | | | CENTER - | | | | | | LABORATORY | | + + + + + + | Globulin | 2.8 | g/dL | [facility] | | | | | | [facility] | | | | | | MEDICAL | | | | | | CENTER - | | | | | | LABORATORY | | + + + + + + | Albumin/Jewell | 1.4 | | [facility] | | | bulin Ratio | | | [facility] | | | | | | MEDICAL | | | | | | CENTER - | | | | | | LABORATORY | | + + + + + + | BUN/Creatin | 10.7 | | [facility] | | | ine [...] [address] | [place]aka [place] | [phone] | | [facility] | | [address] | | | - LABORATORY | | | | + + + + + CBC with Differential (04/12/2015 8:18 PM PST) + + + + + + | Component | Value | Ref Range | Performed | Pathologist | | | | | At | Signature | + + + + + + | WBC | 17.2 (H) | 4.0 - 11.0 K/uL | [facility] | | | | | | [facility] | | | | | | MEDICAL | | | | | | CENTER - | | | | | | LABORATORY | | + + + + + + | RBC | 5.07 | 3.70 - 5.20 | [facility] | | | | | M/uL | [facility] | | | | | | MEDICAL | | | | | | CENTER - | | | | | | LABORATORY | | + + + + + + | Hemoglobin | 14.8 | 11.5 - 16.0 | [facility] | | | | | g/dL | [facility] | | | | | | MEDICAL | | | | | | CENTER - | | | | | | LABORATORY | | + + + + + + | Hematocrit | 43.0 | 34.0 - 47.0 % | [facility] | | | | | | [facility] | | | | | | MEDICAL | | | | | | CENTER - | | | | | | LABORATORY | | + + + + + + | MCV | 84.7 | 83.0 - 101.0 fL | [facility] | | | | | | [facility] | | | | | | MEDICAL | | | | | | CENTER - | | | | | | LABORATORY | | + + + + + + | MCH | 29.1 | 28.0 - 35.0 pg | [facility] | | | | | | [facility] | | | | | | MEDICAL | | | | | | CENTER - | | | | | | LABORATORY | | + + + + + + | MCHC | 34.4 | 32.0 - 36.0 | [facility] | | | | | g/dL | [facility] | | | | | | MEDICAL | | | | | | CENTER - | | | | | | LABORATORY | | + + + + + + | RDW-CV | 13.2 | <15.0 % | [facility] | | | | | | [facility] | | | | | | MEDICAL | | | | | | CENTER - | | | | | | LABORATORY | | + + + + + + | Platelet | 489 (H) | 140 - 440 K/uL | [facility] | | | Count | | | [facility] | | | | | | MEDICAL | | | | | | CENTER - | | | | | | LABORATORY | | + + + + + + | MPV | 7.0 | fL | [facility] | | | | | | [facility] | | | | | | MEDICAL | | | | | | CENTER - | | | | | | LABORATORY | | + + + + + + | % | 65.4 | 45.0 - 82.0 % | [facility] | | | Neutrophils | | | [facility] | | | | | | MEDICAL | | | | | | CENTER - | | | | | | LABORATORY | | + + + + + + | % | 28.9 | 20.0 - 45.0 % | [facility] | | | Lymphocytes | | | [facility] | | | | | | MEDICAL | | | | | | CENTER - | | | | | | LABORATORY | | + + + + + + | % Monocytes | 4.5 | 4.0 - 12.0 % | [facility] | | | | | | [facility] | | | | | | MEDICAL | | | | | | CENTER - | | | | | | LABORATORY | | + + + + + + | % | 0.1 | 0.0 - 5.0 % | [facility] | | | Eosinophils | | | [facility] | | | | | | MEDICAL | | | | | | CENTER - | | | | | | LABORATORY | | + + + + + + | % Basophils | 1.1 (H) | 0.0 - 1.0 % | [facility] | | | | | | [facility] | | | | | | MEDICAL | | | | | | CENTER - | | | | | | LABORATORY | | + + + + + + | Absolute | 11.20 (H) | 1.80 - 8.50 | [facility] | | | Neutrophils | | K/uL | [facility] | | | | | | MEDICAL | | | | | | CENTER - | | | | | | LABORATORY | | + + + + + + | Absolute | 5.00 (H) | 0.60 - 3.20 | [facility] [...] | Monocytes | | K/uL | [facility] | [...] + + + | Absolute | 0.20 (H) | 0.00 - 0.10 | [facility] | [...] [address] | [place] | [phone] | | [facility] | | [address] | | | - LABORATORY | | | | + + + + + ECG 12 lead (04/12/2015 8:17 PM PST) + + + + + + | Component | Value | Ref Range | Performed | Pathologist | | | | | At | Signature | + + + + + + | VENTRICULAR | 103 | BPM | [facility] | | | RATE EKG | | | | | + + + + + + | ATRIAL RATE | 103 | BPM | [facility] | | + + + + + + | P-R | 160 | ms | [facility] | | | INTERVAL | | | | | + + + + + + | QRS | 66 | ms | [facility] | | | DURATION | | | | | + + + + + + | Q-T | 364 | ms | [facility] | | | INTERVAL | | | | | + + + + + + | Q-T | 476 | ms | [facility] | | | INTERVAL | | | | | | (CORRECTED) | | | | | + + + + + + | P WAVE AXIS | 76 | degrees | [facility] | | + + + + + + | QRS AXIS | 61 | degrees | [facility] | | + + + + + + | T AXIS | 72 | degrees | [facility] | | + + + + + + | INTERPRETAT | EKG is of extremely poor | | [facility] | | | ION TEXT | qualityprobable Sinus | | | | | | tachycardia with | | | | | | prolonged QTc | | | | | | intervalrecommend | | | | | | repeat: Cannot exclude | | | | | | ischemia/ infarctionNo | | | | | | previous ECGs | | | | | | availableConfirmed by | | | | | | RAFA WELLS MD ([id number]) | | | | | | on 04/13/2015 8:28:27 AM | | | | + + [...] + | Diagnosis | + + | Dyspepsia and disorder of function of stomach - Primary Dyspepsia and other specified | | disorders of function of stomach | + + documented in this encounter Administered Medications + +--------+ +-------+------+------+ | Medication Order | MAR | Action | Dose | Rate | Site | | | Action | Date | | | | + +--------+ +-------+------+------+ | albuterol-ipratropium (DUONEB) | Given | 04/12/19 | 3 mLs | | | | 2.5-0.5 mg/3 mL nebulizer | | 16 8:32 | | | | | solution 3 mL 3 mL, | | PM PST | | | | | Nebulization, RT Once, Wed | | | | | | | 04/12/15 at 2020, For 1 dose | | | | | | + +--------+ +-------+------+------+ +---+---+ | | | +---+---+ + +-------+ +--------+---+---+ | aluminum & magnesium | Given | 04/12/19 | 30 mLs | | | | hydroxide-simethicone (MAALOX | | 16 8:29 | | | | | PLUS REGULAR STRENGTH) 200-200-20 | | PM PST | | | | | mg/5 mL suspension 30 mL 30 mL, | | | | | | | Oral, ONCE, 2/17/16 at 2020, | | | | | | | For 1 dose, Mix lidocaine and | | | | | | | Maalox. Ashok garcia., | | | | | | + +-------+ +--------+---+---+ +---+---+ | | | +---+---+ + +-------+ +------+---+---+ | HYDROmorphone (DILAUDID) 1 | Given | 04/12/19 | 1 mg | | | | mg/mL injection 1 mg 1 mg, | | 16 9:46 | | | | | Intravenous, ONCE, Fri04/12/15 at | | PM PST | | | | | 2145, For 1 dose | | | | | | + +-------+ +------+---+---+ +---+---+ | | | +---+---+ + +-------+ +---------+---+---+ | iohexol (OMNIPAQUE 350) 350 | Given | 04/12/19 | 100 mLs | | | | mg/mL injection 100 mL 100 mL, | | 16 9:03 | | | | | Intravenous, ONCE PRN, Other, | | PM PST | | | | | Starting 04/12/15 at 2103, For | | | | | | | 1 dose, Cat Scanner | | | | | | + +-------+ +---------+---+---+ +---+---+ | | | +---+---+ + +-------+ +--------+---+---+ | lidocaine (XYLOCAINE) 2% | Given | 04/12/19 | 10 mLs | | | | viscous solution 10 mL 10 mL, | | 16 8:29 | | | | | Oral, ONCE, 04/12/15 at 2020, | | PM PST | | | | | For 1 dose, Mix lidocaine and | | | | | | | MAALOX. Ashok garcia., | | | | | | + +-------+ +--------+---+---+ +---+---+ | | | +---+---+ + +-------+ +------+---+---+ | morphine injection 4 mg 4 mg, | Given | 04/12/19 | 4 mg | | | | Intravenous, ONCE, Fri04/12/15 at | | 16 8:16 | | | | | 2009, For 1 dose | | PM PST | | | | + +-------+ +------+---+---+ +---+---+ | | | +---+---+ + +-------+ +------+---+---+ | morphine injection 4 mg 4 mg, | Given | 04/12/19 | 4 mg | | | | Intravenous, ONCE, Fri04/12/15 at | | 16 9:01 | | | | | 2049, For 1 dose | | PM PST | | | | + +-------+ +------+---+---+ +---+---+ | | | +---+---+ + + + +------+---+---+ | ondansetron (ZOFRAN ODT) | Dispense | 04/12/19 | 4 mg | | | | disintegrating tablet (ED | to Home | 16 10:08 | | | | | homepack) 4 mg 4 mg, Oral, EVERY | | PM PST | | | | | 6 HOURS PRN, Nausea, Starting | | | | | | | 04/12/15 at 2155, Dispense for | | | | | | | home use., | | | | | | + + + +------+---+---+ +---+---+ | | | +---+---+ + +-------+ +------+---+---+ | ondansetron (ZOFRAN) injection | Given | 04/12/19 | 8 mg | | | | 8 mg 8 mg, Intravenous, ONCE, | | 16 8:16 | | | | | 04/12/15 at 2010, For 1 dose | | PM PST | | | | + +-------+ +------+---+---+ +---+---+ | | | +---+---+ + + + + +---+---+ | oxyCODONE-acetaminophen | Dispense | 04/12/19 | 1 tablet | | | | (PERCOCET) 5-325 mg per tablet | to Home | 16 10:08 | | | | | (ED prepack) 1-2 tablet 1-2 | | PM PST | | | | | tablet, Oral, ONCE, Fri04/12/15 | | | | | | | at 2205, For 1 dose, 1-2 | | | | | | | tablet(s) every 6 hours prn pain | | | | | | | Dispense for home use., | | | | | | + + + + +---+---+ +---+---+ | | | +---+---+ documented in this encounter
--- OUTSIDE RECORDS SUMMARY | ~2019-02-28 | XMS | Encounter Summary ---
Demographics + + + | Address | [address] | | | [place] [address] | + + + | Home Phone | | + + + | Preferred Language | Unknown | + + + | Marital Status | Single | + + + | Protestant Affiliation | 1041 | + + + | Race | Unknown | + + + | Ethnic Group | Unknown | + + + Author + + + | Author | [facility] | | | and [place] | + + + | Organization | [facility] | | [...] Team Providers + +------+ + | Care Coffee Maker Servicer Name | Role | Phone | [...] | | | | | pulmonary | [address] | [address] | | | | | disease, | [place], | [address] [place] | | | | | unspecified | [place] [address] | [place], [place] | | | | | COPD type | Phone: | [address] | | | | | (HCC) | [phone] | Phone: | | | | | Pulmonary | Fax: | [phone] | | | | | emphysema, | [phone] | Fax: | | | | | unspecified | | [phone] | | | | | emphysema | | | | | | | type ([facility]) | | | +--------+ + + + + + Encounter Details +--------+---------+ + + + | Date | Type | Department | Care Team | Description | +--------+---------+ + + + | 05/21/ | Office | [facility] | Sharonda Delmycaitie, | Chronic obstructive | | 2017 | Visit | MED CTR CARDIAC | [address] | pulmonary disease, | | | | REHABILITATION [address] | [address], | unspecified COPD | | | | [address] [place] | [place] [address] | type (HCC) (Primary | | | | [place] [address] | [phone] | Dx) | | | | [phone] | | | +--------+---------+ + + + [...] + documented as of this encounter Progress Tricia Rahman, ENVELOPE CUTTER - 05/21/2016 10:37 AM PDT [facility] [address] [place] [address] Cardiac Rehab Date: 05/21/2016 Patient Information Patient Name: Rosario Malik Date of : 1965 Age: 51 y.o. Encounter Diagnoses Code Name Primary? J44.9 Chronic obstructive pulmonary disease, unspecified COPD type (HCC) Yes Number of Visits Approved: 10 (7) Taken Medications Today? Yes Any Changes in Medications? No Any Problems to Report? No Pain Level? 10 Fall Risk/Liquid Oxygen Denies any adverse symptoms during exercise. Sinus rhythm without ectopy. SBP with no change during exertion. Compliant with medications and therapeutic lifestyle changes. Continue monitored exercise. Any abnormal vital signs or rhythm strips will be reported in progress note. Electronically signed by: Tricia Herron RRT, 05/21/2016 10:38 Patient Name: Rosario Malik/: 1965/ document ed in this encounter Plan of Treatment +--------+---------+ + + + | Date | Type | Specialty | Care Team | Description | +--------+---------+ + + + | 03/31/ | Office | Pulmonology | Mukul Clark MD | | | 2019 | Visit | | [address] | | | | | | [place] | | | | | | [address] | | | | | | | | +--------+---------+ + + + | 11/24/ | Office | Cardiology | [place], | | | 2019 | Visit | | GeorginaSINDHU reynoso [address] | | | | | | [place], | | | | | | [place] [address] | | | | | | [phone] | | | | | | | | +--------+---------+ + + + documented as of this encounter Visit Diagnoses + + | Diagnosis | + + | Chronic obstructive pulmonary disease, unspecified COPD type (HCC) - Primary | + + documented in this encounter"
--- OUTSIDE RECORDS SUMMARY | ~2019-02-28 | XMS | Encounter Summary ---
Demographics + + + | Address | [address] | | | [place] [address] | + + + | Home Phone [...] Team Providers + +------+ + | Care Scalder Name | Role | Phone | + [...] [address] | | | | | [place], | [place], | | | | | [place] [address] | [place] [address] | | | | | [phone] | [phone] | | | | | | | [...] | | | | | | [place] [address] | | | | | | [phone] | | | | | | | | +--------+---------+ + + + documented as of this encounter Visit Diagnoses Not on filedocumented in this encounter"
--- OUTSIDE RECORDS SUMMARY | ~2019-02-28 | XMS | Encounter Summary ---
Demographics + + + | Address | [address] | | | [place] [address] | + + + | Home Phone [...] Team Providers + +------+ + | Care Logging Shovel Operator Name | Role | Phone | [...] | | | | [facility] | [address] | [address] | | | | | EXERCISE | [place], | [place] | | | | | | [place] [address] | [place], [place] | | | | | | Phone: | [address] | | | | | | [phone] | Phone: | | | | | | Fax: | [phone] | | | | | | [phone] | Fax: | | | | | | | [phone] | +--------+--------+ + + + + Encounter Details +--------+---------+ + + + | Date | Type | Department | Care Team | Description | +--------+---------+ + + + | 07/30/ | Office | [facility] | Jared Mcdonough, | Chronic obstructive | | 2017 | Visit | MED CTR CARDIAC | [address] | pulmonary disease, | | | | REHABILITATION [address] | [address] [place], | unspecified COPD | | | | [address] [place] | [place] [address] | type (HCC) (Primary | | | | [place] [address] | [phone] | Dx) | | | | [phone] | | | +--------+---------+ + + + [...] encounter Progress Notes Tricia Herron RRT - 07/30/2016 10:15 AM PDTPatient tolerated exercise sessio n without any complaints. Continue support and progression. Appointment duration: 60 minsElectronically signed by Tricia Herron RRT at 12:48 PM PDTdocumented in this encounter Plan of Treatment +--------+---------+ + + + | Date | Type | Specialty | Care Team | Description | +--------+---------+ + + + | 03/31/ | Office | Pulmonology | Mukul Clark MD | | | 2019 | Visit | | [address] | | | | | | [place] | | | | | | [address] | | | | | | | | +--------+---------+ + + + | 11/24/ | Office | Cardiology | [place], | | | 2019 | Visit | | [address] | | | | | | [place], | | | | | | [place] [address] | | | | | | [phone] | | | | | | | | +--------+---------+ + + + documented as of this encounter Visit Diagnoses + + | Diagnosis | + + | Chronic obstructive pulmonary disease, unspecified COPD type (HCC) - Primary | + + documented in this encounter"
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
--- OUTSIDE RECORDS SUMMARY | ~2019-02-28 | XMS | Encounter Summary ---
Demographics + + + | Address | [address] | | | [place] [address] | + + + | Home Phone [...] Team Providers + +------+ + | Care Saddle And Harness Maker Name | Role | Phone | [...] + + | 09/05/ | Telephone | [facility] | Kevin Sandoval, | Medication Prior | | 2014 | | PULMONARY [address] | MD [address] | Authorization | | | | [place], | [place] | | | | | [place] [address] | [address] | | | | | [phone] | | | +--------+ + + + [...] | | | | | | [place] [address] | | | | | | [phone] | | | | | | | | +--------+---------+ + + + documented as of this encounter Visit Diagnoses Not on filedocumented in this encounter"
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
--- OUTSIDE RECORDS SUMMARY | ~2019-02-28 | XMS | Encounter Summary ---
Demographics + + + | Address | [address] | | | [place] [address] | + + + | Home Phone [...] Team Providers + +------+ + | Care Cert Occupational Therapy Asst Name | Role | Phone | + +------+ + | Juan Cherry DO | PCP | | + +------+ + Reason for Visit +--------+ + | Reason | Comments | +--------+ + | Other | Out of medication | +--------+ + Encounter Details +--------+ + + + + | Date | Type | Department | Care Team | Description | +--------+ + + + + | 05/07/ | Telephone | [facility] | Andriy Weber | Other (Out of | | 2017 | | [address] | MD [address] | medication) | | | | [place] | [address] [facility] | | | | | [address] | [place] [address] | | | | | [phone] | [phone] | | | | | | | [...] [place] | | | | | | [address] | | | | | | | | +--------+---------+ + + + | 11/24/ | Office | Cardiology | [place], | | | 2019 | Visit | | SINDHU Erickson [address] | | | | | | [place], | | | | | | [place] [address] | | | | | | [phone] | | | | | | | | +--------+---------+ + + + documented as of this encounter Visit Diagnoses Not on filedocumented in this encounter"
--- OUTSIDE RECORDS SUMMARY | ~2019-02-28 | XMS | Encounter Summary ---
Demographics + + + | Address | [address] | | | [place] [address] | + + + | Home Phone [...] Team Providers + +------+ + | Care Cyber Intel Planner Name | Role | Phone | + +------+ + | Juan Cherry DO | PCP | | + +------+ + Reason for Visit +--------+ + | Reason | Comments | +--------+ + | Other | Sleep study | +--------+ + Encounter Details +--------+ + + + + | Date | Type | Department | Care Team | Description | +--------+ + + + + | 12/20/ | Telephone | [facility] [place] | Kevin Sandoval, | Other (Sleep study) | | 2013 | | PULMONARY [address] | MD [address] | | | | | [place], | [place] | | | | | [place] [address] | [address] | | | | | [phone] | | | +--------+ + + + [...] [place] | | | | | | [address] | | | | | | | | +--------+---------+ + + + | 11/24/ | Office | Cardiology | [place], | | | 2019 | Visit | | SINDHU Erickson [address] | | | | | | [place], | | | | | | [place] [address] | | | | | | [phone] | | | | | | | | +--------+---------+ + + + documented as of this encounter Visit Diagnoses Not on filedocumented in this encounter"
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
--- OUTSIDE RECORDS SUMMARY | ~2019-02-28 | XMS | Encounter Summary ---
Demographics + + + | Address | [address] | | | [place] [address] | + + + | Home Phone [...] Team Providers + +------+ + | Care Systems Test Technician Name | Role | Phone | + +------+ + | Juan Cherry DO | PCP | | + +------+ + Reason for Visit +--------+ + | Reason | Comments | +--------+ + | Other | PRESCRIPTION | +--------+ + Encounter Details +--------+ + + + + | Date | Type | Department | Care Team | Description | +--------+ + + + + | 03/25/ | Telephone | [facility] [place] [facility] | Andriy Weber | Other (PRESCRIPTION) | | 2016 | | [address] | MD [address] | | | | | [place], [place] | [address] [facility] | | | | | [address] | [place] [address] | | | | | [phone] | [phone] | | | | | | | [...] [place] | | | | | | [address] | | | | | | | | +--------+---------+ + + + | 11/24/ | Office | Cardiology | [place], | | | 2019 | Visit | | SINDHU Erickson [address] | | | | | | [place], | | | | | | [place] [address] | | | | | | [phone] | | | | | | | | +--------+---------+ + + + documented as of this encounter Visit Diagnoses Not on filedocumented in this encounter"
--- OUTSIDE RECORDS SUMMARY | ~2019-02-28 | XMS | Encounter Summary ---
Demographics + + + | Address | [address] | | | [place] [address] | + + + | Home Phone [...] Team Providers + +------+ + | Care Records Management Engineer Name | Role | Phone | [...] + | 06/23/ | Office | [facility] | Shashi Segovia | Other migraine | | 2015 | Visit | NEUROLOGY ADRIANA | MD Miryam Need updated | without status | | | | [address] [facility], | address | migrainosus, not | | | | [address] [place] | | intractable (Primary | | | | [place] [address] | | Dx); Pituitary | | | | [phone] | | adenoma (HCC); GARRY | | [...] pauses than usual Unable to awaken Seizure 3059-[address] [employer] [place] [address]. All righ ts reserved. This information is not intended as a substitute for professional medical care. Always follow your healthcare professional's instructions. documented in this encounter Progress Notes Shashi Segovia MD - 06/23/2014 8:20 AM PDTFormatting of this note might be differen t from the original. Shashi Segovia MD [address] [place] [address], [address] [place] [address] Neurology Outpatient ProgressNote Patient ID: Ms. Malik [...] within her pituitary. She recently saw an etl tester who noted he r visual acuity changed, [...] an upcoming appointment with endocrin ology at [facility]. Past Medical History: Past Medical History Diagnosis Date Hypothyroidism Diverticulitis past Depression Anxiety GERD (gastroesophageal reflux disease) COPD (chronic obstructive pulmonary disease) ([facility]) 2011 post BD FEV1 2.34, 85% 11/14/11 [...] duct (pouch) (HCC) 10/28/2012 Overview: Managed by [facility] along with hypothyroidism Osteoarthritis Tachycardia [...] Need 99 months. Please send order to [facility]. Respiratory Therapy Supplies MISC (Taking) Change CPAP back to 11-14 cm H2O. All necessar y supplies. No oxygen bleed in. Diagnosis Code(s)327.23. Length of Need: Lifetime. Please se nd order to [facility]. This is not a new [...] of 10 mL of Gadavist. Dedicated small brwfr-ic-rajv thin section imaging through the pituitary region [...] as needed. Discussed my upcoming departure from [facility]. If charis valderrama has issues before August [...] | 2019 | Visit | | SINDHU Ercikson [address] | | | | | | [place], | | | | | | [place] [address] | | | | | | [phone] | | | | | | | [...]
--- OUTSIDE RECORDS SUMMARY | ~2019-02-28 | XMS | Encounter Summary ---
Demographics + + + | Address | [address] | | | [place] [address] | + + + | Home Phone [...] Team Providers + +------+ + | Care Process Stripper Name | Role | Phone | [...] | | | | unspecified | | [address] | | | | | laterality | | Phone: | | | | | Primary | | [phone] | | | | | localized | | Fax: | | | | | osteoarthros | | [phone] | | | | | is of hand, | | | | | | | unspecified | | | | | | | laterality | | | | | | | [[id number] | | | | | | | Procedures | | | | | | | MA REPAIR | | | | | | [...] + + | 06/18/ | Hospital | [facility] | Jesus Brady | | | 2018 | Encounter | MED CTR OR INTRA OP | J, DO [address] | | | | | [address] | [place], [place] | | | | | [place], [place] | [address] | | | | | [address] | [phone] | | | | | [phone] | | | +--------+ + + + [...] what medicines and drugsyou take. This includes wgat-drd-rpc nter medicines, herbs, supplements, alcohol or other [...] adam p you safe. Date Last Reviewed: 01/25/201619991059-2183 [employer]. [address] [place] [address], [place] [address]. All righ ts reserved. This information is not intended as a substitute for professional medical care. Always follow your healthcare professional's instructions. [facility] Post-op Instructions - Thumb Surgery The following instructions are meant to guide you following surgery until your first post-o perative visit 7-12 days later. For any problems or questions, please call our office at [phone], Friday through Friday, 9:00 am - 5:00 [...] that you may have received from the [facility] pital, advice from friends, family members, ecclesInsight Gurutical leaders, grocery store clerks, fox lee, Anu, Dr. Jain, Dr. Oz, sports heroes, etc. If unsure, please call our office. Thank you, Jesus Brady D.O. [facility] [address] [place] [address] Your post op appointment is scheduled for Friday06/29/18 at 9:15am. Please check in at 8:45 am for X-rays at the [facility]. documented in this encounter Medications at Time [...] | | | | | [facility]. | | | | [...] [place] | | | | | | [address] | | | | | | | | +--------+---------+ + + + | 11/24/ | Office | Cardiology | [place] | | | 2019 | Visit | | SINDHU Erickson [address] | | | | | | [place], | | | | | | [place] [address] | | | | | | [phone] | | | | | | | | +--------+---------+ + + + documented as of this encounter Procedures + +--------+ + + + | Procedure Name | Priori | Date/Time | Associated Diagnosis | Comments | | | ty | | | | + +--------+ + + + | MICKI NEAL STATS NO | Routin | 06/18/2018 | [...] + | Roger Mcbride Results In - 06/18/2018 4:34 PM PDT [...] [address] | [place] | [phone] | | [facility] | | [address] | | | - LABORATORY | | | | + + + + + documented in this encounter Visit Diagnoses + + | Diagnosis | + + | CMC DJD(carpometacarpal degenerative joint disease), localized primary Primary | | localized osteoarthrosis, hand | + + | COPD (chronic obstructive pulmonary disease) (HCC) Chronic airway obstruction, not | | elsewhere classified | + + | Hypothyroidism Unspecified hypothyroidism | + + | Paroxysmal atrial tachycardia (HCC) Paroxysmal supraventricular tachycardia | + + | 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 | + + | Obstructive sleep apnea on CPAP Obstructive sleep apnea (adult) (pediatric) | + + | GERD (gastroesophageal reflux disease) Esophageal reflux | + + documented in this encounter [...] ONCE PRN, Wheezing, | | | Starting [facility] 06/18/18 at 1542, | | | For [...] | | | | | Wheezing, Starting [facility] 06/18/18 at | | | | | | | 1306, For 1 dose, Pre-op | | | | | | + +-------+ +-------+---+---+ + +---+ | | | + +---+ | albuterol-ipratropium 2.5-0.5 | | | mg/3 mL nebulizer solution 3 mL | | | 3 mL, Nebulization, ONCE PRN, | | | Wheezing, Shortness of Breath, | | | Starting [facility] 06/18/18 at 1542, For | | | [...]
--- OUTSIDE RECORDS SUMMARY | ~2019-02-28 | XMS | Encounter Summary ---
Demographics + + + | Address | [address] | | | [place] [address] | + + + | Home Phone [...] Team Providers + +------+ + | Care Charging Manipulator Name | Role | Phone | + [...] [address] | | | | | [place], | [place] | | | | | [place] [address] | [address] | | | | | [phone] | | | +--------+--------+ + + + [...] [place] | | | | | | [address] | | | | | | | | +--------+---------+ + + + | 11/24/ | Office | Cardiology | [place], | | | 2019 | Visit | | SINDHU Erickson [address] | | | | | | [place], | | | | | | [place] [address] | | | | | | [phone] | | | | | | | | +--------+---------+ + + + documented as of this encounter Visit Diagnoses Not on filedocumented in this encounter"
--- OUTSIDE RECORDS SUMMARY | ~2019-02-28 | XMS | Encounter Summary ---
Demographics + + + | Address | [address] | | | [place] [address] | + + + | Home Phone [...] Providers + +------+ + | Care Junior Recruiter Name | Role | Phone | + [...] | | not | [place], | [place] | | | | | elsewhere | [place] [address] | [place], [place] | | | | | classified | Phone: | [address] | | | | | Procedures | [phone] | Phone: | | | | | [facility] | Fax: | [phone] | | | | | REHAB W | [phone] | Fax: | | | | | EXER | | [phone] | +--------+--------+ + + + + Encounter Details +--------+---------+ + + + | Date | Type | Department | Care Team | Description | +--------+---------+ + + + | 12/14/ | Office | [facility] | Sandoval, Kevin, | COPD (chronic | | 2013 | Visit | MED CTR CARDIAC | MD [address] | obstructive | | | | REHABILITATION [address] | [place] | pulmonary disease) | | | | [address] [place] | [address] | ([facility]) (Primary Dx) | | | | [place] [address] | | | | | | [phone] | Mary Nunez RN | | +--------+---------+ [...] tachycardia and is wearing a [employer] which she will turn in sekou richgroveow. Today, sinus rhythm 90-98 bpm without ectopy. [...] reps. Her PFT doesn't qualify her for [place], so we will monitor her as a [...] [place] | | | | | | [address] | | | | | | | | +--------+---------+ + + + | 11/24/ | Office | Cardiology | [place], | | | 2019 | Visit | | SINDHU Erickson [address] | | | | | | [place], | | | | | | [place] [address] | | | | | | [phone] | | | | | | | | +--------+---------+ + + + documented as of this encounter Visit Diagnoses + + | Diagnosis | + + | COPD (chronic obstructive pulmonary disease) (HCC) - Primary Chronic airway | | obstruction, not elsewhere classified | + + documented in this encounter
--- OUTSIDE RECORDS SUMMARY | ~2019-02-28 | XMS | Encounter Summary ---
Demographics + + + | Address | [address] | | | [place] [address] | + + + | Home Phone [...] Providers + +------+ + | Care Treasury Specialist Name | Role | Phone | [...] | | | | CLINIC [address] | [address] | Dx) | | | | [place] | [place] [address] | | | | | [address] | [phone] | | | | | [phone] | | | +--------+ + + + [...] [place] | | | | | | [address] | | | | | | | | +--------+---------+ + + + | 11/24/ | Office | Cardiology | [place], | | | 2019 | Visit | | SINDHU Erickson [address] | | | | | | [place], | | | | | | [place] [address] | | | | | | [phone] | | | | | | | [...] + | [facility] | [address] | [place] | [phone] | | [facility] | | [address] | | | - LABORATORY | | [...] ST. | [address] | [place] | [phone] | | [facility] | | [address] | | | - LABORATORY | | [...] [address] | [place] | [phone] | | [facility] | | [address] | | | - LABORATORY | | [...] ST. | [address] | [place] | [phone] | | [facility] | | [address] | | | - LABORATORY | | [...] | 0.84 | 0.60 - 1.30 | [facility] | | | | | mg/dL | [facility] | | | | | | MEDICAL | | | | | | CENTER - | | | | | | LABORATORY | | + + + + + + | eGFR if not | >60Comment: GLOMERULAR | >=60 | [place] | | | | FILTRATION | mL/min/1.73m2 | [facility] | | | HONDURAN | RATE,ESTIMATED | | MEDICAL | | | | mL/min/1.29c2Uvwj than | | CENTER - | | [...] [address] | [place] | [phone] | | [facility] | | [address] | | | - LABORATORY | | | | + + + + + documented in this encounter Visit Diagnoses + + | Diagnosis | + + | Preoperative clearance - Primary Preoperative examination, unspecified | + + documented in this encounter"
--- OUTSIDE RECORDS SUMMARY | ~2019-02-28 | XMS | Encounter Summary ---
Demographics + + + | Address | [address] | | | [place] [address] | + + + | Home Phone [...] Team Providers + +------+ + | Care Recreational Specialist Name | Role | Phone | [...] [address] | | | | | [place], | [place], | | | | | [place] [address] | [place] [address] | | | | | [phone] | [phone] | | | | | | | [...] | | | | | | [place] [address] | | | | | | [phone] | | | | | | | | +--------+---------+ + + + documented as of this encounter Visit Diagnoses Not on filedocumented in this encounter"
--- OUTSIDE RECORDS SUMMARY | ~2019-02-28 | XMS | Encounter Summary ---
Demographics + + + | Address | [address] | | | [place] [address] | + + + | Home Phone [...] Team Providers + +------+ + | Care Permastone Installer Name | Role | Phone | [...] + + | 11/23/ | Emergency | [facility] | Alexi Guaman, | Post-op pain | | 2016 | | MED CTR EMERGENCY | MD [address] | (Primary Dx) | | | | CENTER [address] | [place] | | | | | [place] | [address] | | | | | [address] | | | | | | [phone] | | | +--------+ + + + [...] sent through Care Everywhere.PAIN MANAGEMENT AFTER SURGERY (HEBREW)documented in this encounter Medications at Time of [...] | | | | | order to [facility]. | | | | | + [...] | | | | send order to [facility] | | | | | | | [facility]. | | | | [...] | 0 | 10/13/19 | | | Qsidriaejk-YUHF-Khmn | mouth as needed. | | | 16 | 7 | | -Cod [id number] MG | | | | | | [...] [place] | | | | | | [address] | | | | | | | | +--------+---------+ + + + | 11/24/ | Office | Cardiology | [place], | | | 2019 | Visit | | SINDHU Erickson [address] | | | | | | [place], | | | | | | [place] [address] | | | | | | [phone] | | | | | | | [...]
--- OUTSIDE RECORDS SUMMARY | ~2019-02-28 | XMS | Encounter Summary ---
Demographics + + + | Address | [address] | | | [place] [address] | + + + | Home Phone [...] Team Providers + +------+ + | Care Human Resources Compliance Manager Name | Role | Phone | [...] + + | 05/28/ | Office | [facility] | Kade Hoffman MD | COPD exacerbation | | 2013 | Visit | CARE [address] | [address] | ([facility]) (Primary Dx) | | | | [place] | [place] [address] | | | | | [address] | [phone] | | | | | [phone] | | | +--------+---------+ + + + [...] prednisone, add zithromax FU 3 days with staff combat information center officer. documented in this enc ounter Plan of [...] [place] | | | | | | [address] | | | | | | | | +--------+---------+ + + + | 11/24/ | Office | Cardiology | [place], | | | 2019 | Visit | | SINDHU Erickson [address] | | | | | | [place], | | | | | | [place] [address] | | | | | | [phone] | | | | | | | | +--------+---------+ + + + documented as of this encounter Visit Diagnoses + + | Diagnosis | + + | COPD exacerbation (HCC) - Primary Obstructive chronic bronchitis with exacerbation | + + documented in this encounter
--- OUTSIDE RECORDS SUMMARY | ~2019-02-28 | XMS | Encounter Summary ---
Demographics + + + | Address | [address] | | | [place] [address] | + + + | Home Phone [...] + + + | Author | [facility] | | | and [place] | + + + | Organization | [facility] | | [...] Team Providers + +------+ + | Care Slotter Operator Name | Role | Phone | [...] [address] | | | | | [place], | [place] | | | | | [place] [address] | [address] | | | | | [phone] | | | +--------+--------+ + + + [...] [place] | | | | | | [address] | | | | | | | | +--------+---------+ + + + | 11/24/ | Office | Cardiology | [place], | | | 2019 | Visit | | SINDHU Erickson [address] | | | | | | [place] | | | | | | [place] [address] | | | | | | [phone] | | | | | | | | +--------+---------+ + + + documented as of this encounter Visit Diagnoses Not on filedocumented in this encounter"
--- OUTSIDE RECORDS SUMMARY | ~2019-02-28 | XMS | Encounter Summary ---
Demographics + + + | Address | [address] | | | [place] [address] | + + + | Home Phone [...] Providers + +------+ + | Care Machine Wood Sander Name | Role | Phone | + +------+ + | Jaun Cherry DO | PCP | | + +------+ + Encounter Details +--------+ + + + + | Date | Type | Department | Care Team | Description | +--------+ + + + + | 09/09/ | Hospital | [facility] | Conversion | Pain | | 2015 | Encounter | CONVERSION [address] | Transaction, | | | | | [address] | Provider Unknown | | | | | [place], [place] | [phone] | | | | | [address] | | | | | | [phone] | | | +--------+ + + + [...] | | | | | order to [facility]. | | | | | + + [...] | | | | send order to [facility] | | | | | | | [facility]. | | | | [...] | | | | | | | ([facility]) | | | | | | [...] | | | | [place] [address] [place] | | | | | | [address] | | | | | | | | +--------+---------+ + + + | 11/24/ | Office | Cardiology | [place], | | | 2019 | Visit | | SINDHU Erickson [address] | | | | | | [place], | | | | | | [place] [address] | | | | | | [phone] | | | | | | | [...]
--- OUTSIDE RECORDS SUMMARY | ~2019-02-28 | XMS | Encounter Summary ---
Demographics + + + | Address | [address] | | | [place] [address] | + + + | Home Phone [...] Providers + +------+ + | Care Package Dyeing Machine Operator Name | Role | Phone | + +------+ + | Juan Cherry DO | PCP | | + +------+ + Encounter Details +--------+ + + + + | Date | Type | Department | Care Team | Description | +--------+ + + + + | 09/09/ | Hospital | [facility] | Conversion | Pain | | 2015 | Encounter | CONVERSION [address] | Transaction, | | | | | [address] | Provider Unknown | | | | | [place], [place] | [phone] | | | | | [address] | | | | | | [phone] | | | +--------+ + + + [...] | | | | | order to [facility]. | | | | | [...] | | | | send order to [facility] | | | | | | | [facility]. | | | | | [...] | | | | [place] | | | | | | [address] | | | | | | | | +--------+---------+ + + + | 11/24/ | Office | Cardiology | [place], | | | 2019 | Visit | | SINDHU Erickson [address] | | | | | | [place], | | | | | | [place] [address] | | | | | | [phone] | | | | | | | [...]
--- OUTSIDE RECORDS SUMMARY | ~2019-02-28 | XMS | Encounter Summary ---
Demographics + + + | Address | [address] | | | [place] [address] | + + + | Home Phone [...] Providers + +------+ + | Care Supervisor Core Drilling Name | Role | Phone | + [...] covered) | | | | [place] | [facility] | | | | | [address] | [place] [address] | | | | | [phone] | [phone] | | | | | | | [...] | | | | | | [place] [address] | | | | | | [phone] | | | | | | | | +--------+---------+ + + + documented as of this encounter Visit Diagnoses Not on filedocumented in this encounter"
--- OUTSIDE RECORDS SUMMARY | ~2019-02-28 | XMS | Encounter Summary ---
Demographics + + + | Address | [address] | | | [place] [address] | + + + | Home Phone [...] Team Providers + +------+ + | Care Dementia Program Director Name | Role | Phone | + +------+ + PCP | Unavailable | + +------+ + Encounter Details +--------+ + + + + | Date | Type | Department | Care Team | Description | +--------+ + + + + | 03/23/ | Hospital | [facility] | Rocky Rodriguez | | | 2010 | Encounter | MED CTR EMERGENCY | MD Kyler [address] | | | | | CENTER [address] | [address] [facility] | | | | | [place], [place] | [place] [address] | | | | | [address] | [phone] | | | | | [phone] | | | +--------+ + + + [...] [place] | | | | | | [address] | | | | | | | | +--------+---------+ + + + | 11/24/ | Office | Cardiology | [place], | | | 2019 | Visit | | SINDHU Erickson [address] | | | | | | [place], | | | | | | [place] [address] | | | | | | [phone] | | | | | | | | +--------+---------+ + + + documented as of this encounter Visit Diagnoses Not on filedocumented in this encounter"
--- OUTSIDE RECORDS SUMMARY | ~2019-02-28 | XMS | Encounter Summary ---
Demographics + + + | Address | [address] | | | [place] [address] | + + + | Home Phone [...] Providers + +------+ + | Care General Practice Name | Role | Phone | + +------+ + | Juan Cherry DO | PCP | | + +------+ + Encounter Details +--------+---------+ + + + | Date | Type | Department | Care Team | Description | +--------+---------+ + + + | 02/28/ | Surgery | [facility] | Jared Mcdonough, | [facility] with Radial | | 2014 | | MED CTR CV INTRA OP | MD [address] | approach | | | | [address] | [place], | | | | | [place], [place] | [place] [address] | | | | | [address] | [phone] | | | | | [phone] | | | +--------+---------+ + + + [...] | | | | | order to [facility]. | | | | | [...] | [facility]. | | | | | | | [...] | | | | | | [place] [address] | | | | | | [phone] | | | | | | | [...] RECORD NUMBER: | MEDICAL CENTER | | [id number] DATE OF PROCEDURE: 02/28/2014 CYBER INCIDENT RESPONDER: | - IMAGING | | Jared Mcdonough [...] Malik, (1965) OF | | PROCEDURE: 02/28/2014PRIMARY FURNACE HELPER: Jared Mcdonough MD PROCEDURES | | PERFORMED:Coronary [...] [address] | [place] | [phone] | | [facility] | | [address] | | | - IMAGING | | [...] | 0.94 | 0.60 - 1.30 | [facility] | | | | | mg/dL | [facility] | | | | | | MEDICAL | | | | | | CENTER - | | | | | | LABORATORY | | + + + + + + | eGFR if not | >60Comment: GLOMERULAR | >=60 | [facility] | | | | FILTRATION | mL/min/1.73m2 | [facility] | | | [place] | RATE,ESTIMATED | | MEDICAL | | | | mL/min/1.62q8Tnap than | | CENTER - | | [...] + | [facility] | [address] | [place] | [phone] | | [facility] | | [address] | | | - LABORATORY | | | | + + + + + | [facility] | [address] | [place], [place] | | | [facility] | | [address] | | | - LABORATORY | | [...]
--- OUTSIDE RECORDS SUMMARY | ~2019-02-28 | XMS | Encounter Summary ---
Demographics + + + | Address | [address] | | | [place] [address] | + + + | Home Phone [...] Team Providers + +------+ + | Care Clin Tech Name | Role | Phone | + [...] Description | +--------+--------+ + + + | 02/04/ | Refill | [facility] | Mukul Clark MD | Medication Refill | | 2019 | | PULMONOLOGY [address] | | | | | [address] | [place], [place] | | | | | [place], [place] | [address] | | | | | [address] | | | | | | [phone] | | | +--------+--------+ + + + [...] | | | | | | [place] [address] | | | | | | [phone] | | | | | | | | +--------+---------+ + + + documented as of this encounter Visit Diagnoses + + | Diagnosis | + + | Centrilobular emphysema (HCC) - Primary | + + documented in this encounter"
--- OUTSIDE RECORDS SUMMARY | ~2019-02-28 | XMS | Encounter Summary ---
Demographics + + + | Address | [address] | | | [place] [address] | + + + | Home Phone [...] Providers + +------+ + | Care Drag Car Racer Name | Role | Phone | + +------+ + | Juan Cherry DO | PCP | | + +------+ + Encounter Details +--------+ + + + + | Date | Type | Department | Care Team | Description | +--------+ + + + + | 04/05/ | Hospital | [facility] | Yesenia Landin | | | 2013 | Encounter | MED CTR EMERGENCY | DO Cipriano Christin TOM[place] | | | | | CENTER [address] | [address] [place], [place] | | | | | [place], [place] | [address] | | | | | [address] | | | | | | [phone] | Ozzy Aponte | | | | | | Ozzie Kebede MD | | | | | | [address] | | | | | | [place], [place] | | | | | | [address] | | | | | | | [...] | | | | | order to [facility]. | | | | | + [...] | | | send order to [facility] | | | | | | | [facility]. | | | | | | | [...] [place] | | | | | | [address] | | | | | | | | +--------+---------+ + + + | 11/24/ | Office | Cardiology | [place] | | | 2019 | Visit | | SINDHU Erickson [address] | | | | | | [place], | | | | | | [place] [address] | | | | | | [phone] | | | | | | | [...] Performed At | + + + | [facility] | [place] | | Department [address] [facility] | [facility] | | [ rep [address]] [ rep [facility] | | st zip] Signed | - IMAGING | | | | | Patient Name: JADYN SCHMITZ | | | Physician: MARY : 1965 Age: 48 Sex: F Unit | | | #: [id number] Exam Date: 04/05/13 Location: | | | ER Report #: [id number] Page: | | | %(RAD)RES..mtdd.print.filter("pg") of %(RAD) | | | RES..mtdd.print.filter("tpg") | | | | | | Accession Number: [id number] | | | TWO VIEWS OF THE [...] Transcribed Date/Time: 04/06/2013 | | | 08:52 Wooden Fence Erector: <<Signature | | | on File>> | | | Aditya Alonso | | | MD Claudio04/06/13 2312 <Electronically signed by Aditya Snyder MD> | | | Aditya Snyder MD 04/06/1345 Wooden Fence Erector: | | | Webmedx Nksoyrwwlrayy05/11/14 0852 | | + + + + + + + + | Performing | Address | City/State[facility] | Phone Number | | Organization | | | | + + + + + | [facility] | [address] | [place] | [phone] | | [facility] | | [address] | | | - IMAGING | | | | + + + + + XR Chest PA and Lateral (04/06/2013 8:14 AM PST) + + | Specimen | + + | | + + + + + | Narrative | Performed At | + + + | [facility] | [place] | | Department [address] [facility] | [facility] | | [ rep ct [address]] [ rep [facility] | | [facility]] Signed | - IMAGING | | | | | Patient Name: JADYN SCHMITZ W | | | Physician: MARY : 1965 Age: 48 Sex: F Unit | | | #: [id number] Exam Date: 04/05/13 Location: | | | ER Report #: [id number] Page: | | | %(RAD)RES..mtdd.print.filter("pg") of %(RAD) | | | RES..mtdd.print.filter("tpg") | | | | | | Accession Number: [id number] | | | PA AND LATERAL CHEST: [...] Transcribed Date/Time: 04/06/2013 08:17 | | | Wooden Fence Erector: <<Signature on File>> | | | | | | Aditya Snyder MD04/06/132 <Electronically signed by Aditya Alonso | | | Claudio PAUL> Aditya Snyder MD 04/06/13813 | | | Wooden Fence Erector: Neal Afiqeqmxeguis05/11/14816 | | | | | + + + + + + + + | Performing | Address | City/State/Zipcode | Phone Number | | Organization | | | | + + + + + | [facility] | [address] | [place] | [phone] | | [facility] | | [address] | | | - IMAGING | | | | + + + + + documented in this encounter Visit Diagnoses Not on filedocumented in this encounter
--- OUTSIDE RECORDS SUMMARY | ~2019-02-28 | XMS | Encounter Summary ---
Demographics + + + | Address | [address] | | | [place] [address] | + + + | Home Phone [...] Team Providers + +------+ + | Care Surveillance Officer Name | Role | Phone | + +------+ + PCP | Unavailable | + +------+ + Encounter Details +--------+ + + + + | Date | Type | Department | Care Team | Description | +--------+ + + + + | 12/28/ | Hospital | [facility] | Ozzy Delcid, | | | 2009 - | Encounter | MED CTR OP REHAB | [address] | | | | | [address] [place] | [place] | | | 01/23/ | | [place] [address] | [address] | | | 2009 | | [phone] | | | +--------+ + + + [...] [place] | | | | | | [address] | | | | | | | | +--------+---------+ + + + | 11/24/ | Office | Cardiology | [place], | | | 2019 | Visit | | SINDHU Erickson [address] | | | | | | [place], | | | | | | [place] [address] | | | | | | [phone] | | | | | | | | +--------+---------+ + + + documented as of this encounter Visit Diagnoses Not on filedocumented in this encounter"
--- OUTSIDE RECORDS SUMMARY | ~2019-02-28 | XMS | Encounter Summary ---
Demographics + + + | Address | [address] | | | [place] [address] | + + + | Home Phone [...] Providers + +------+ + | Care Head Of Conservation Name | Role | Phone | + [...] | | | | | [place] | [place] | | | | | [address] | [address] | | | | | [phone] | | | +--------+ + + + [...] evaluation. [facility] positive for nitrites. documented [...] | | | | | [place] [address] | | | | | | [phone] | | | | | | | [...] [address] | [place] | [phone] | | [facility] | | [address] | | | - LABORATORY | | | | + + + + + POCT Urinalysis Dipstick Automated (07/28/2017 2:51 PM PDT) + + + + + + | Component | Value | Ref Range | Performed | Pathologist | | | | | At | Signature | + + + + + + | Color, UA, | [place] (A) | Yellow, Light | | | [...] 1.001 - 1.030 | | | | [place], | | | | | | UA, [...]
--- OUTSIDE RECORDS SUMMARY | ~2019-02-28 | XMS | Encounter Summary ---
Demographics + + + | Address | [address] | | | [place] [address] | + + + | Home Phone [...] Team Providers + +------+ + | Care Upholsterer Apprentice Name | Role | Phone | [...] | with brief | [address] | | | | n | loss of | [address] | [place], | | | | | consciousnes | [place], | [place] [address] | | | | | s | [place] [address] | Phone: | | | | | Post-concuss | Phone: | [phone] | | | | | ion vertigo | [phone] | Fax: | | | | | [phone] | Fax: | [phone] | | | | | (ICD-10-CM) | [phone] | | | | | | - [...] + + | 05/27/ | Office | [facility] | Aaron Rodriguez, | Dizziness (Primary | | 2017 | Visit | MED CTR THERAPY PT | MD [address] | Dx); Impaired | | | | OP [address] | [place] | mobility and | | | | [place] | [phone] | activities of daily | | | | [address] | | living; Concussion | | | | [phone] | Lakeshia Cleary, PT | with brief (less | | | | | [address] | than one hour) loss | | | | | [place] | of consciousness; | | | | | [address] | Intractable acute | | | | [...] might be different from t he original. [facility] CTR THERAPY PT OP [address] [place] [address] Physical Therapy Daily Treatment Note Date: 05/27/2016 [...] Precautions Office Visit from 05/01/2016 in [facility] CTR THERAPY PT OP Rehab Precautions Precautions [...] | | | | [address] [place], [place] | | | | | | [address] | | | | | | | | +--------+---------+ + + + | 11/24/ | Office | Cardiology | [place], | | | 2019 | Visit | | SINDHU Erickson [address] | | | | | | [place], | | | | | | [place] [address] | | | | | | [phone] | | | | | | | [...]
--- OUTSIDE RECORDS SUMMARY | ~2019-02-28 | XMS | Encounter Summary ---
Demographics + + + | Address | [address] | | | [place] [address] | + + + | Home Phone [...] Providers + +------+ + | Care Supervisor Transferring And Boxing Name | Role | Phone | + [...] + + | 07/14/ | Office | [facility] | Elda Miranda | Asthma exacerbation | | 2012 | Visit | CON[facility]IENT [facility] [address] | MD [address] | (Primary Dx) | | | | [facility] | [place] | | | | | [place] | [place] [address] | | | | | [address] | [phone] | | | | | [phone] | | | +--------+---------+ + + + [...] did not have shortness of b reath. lda Miranda MD - 07/14/2012 9:11 AM PDT Subjective: [...] allergies reviewed. Review of Systems As per HPI Objective: Physical Exam Nursing note and vitals [...] [place] | | | | | | [address] | | | | | | | | +--------+---------+ + + + | 11/24/ | Office | Cardiology | [place], | | | 2019 | Visit | | SINDHU Erickson [address] | | | | | | [place], | | | | | | [place] [address] | | | | | | [phone] | | | | | | | [...] | | | | | Nebulization, ONCE, 5/21/13 | | AM PDT | | | | | at 0915, For 1 dose | | | | | | + +--------+ +--------+------+------+ +---+---+ | | | +---+---+ documented in this encounter
--- OUTSIDE RECORDS SUMMARY | ~2019-02-28 | XMS | Encounter Summary ---
Demographics + + + | Address | [address] | | | [place] [address] | + + + | Home Phone [...] Team Providers + +------+ + | Care Infusion Nurse Name | Role | Phone | [...] + + | 06/17/ | Telephone | [facility] | Flores, | Other | | 2018 | | CARDIOLOGY [address] | Georgina DRESSING ROOM PORTER [address] | | | | | [place], | [place], | | | | | [place] [address] | [place] [address] | | | | | [phone] | [phone] | | | | | | | [...] [place] | | | | | | [address] | | | | | | | | +--------+---------+ + + + | 11/24/ | Office | Cardiology | [place], | | | 2019 | Visit | | SINDHU Erickson [address] | | | | | | [place], | | | | | | [place] [address] | | | | | | [phone] | | | | | | | [...]
--- OUTSIDE RECORDS SUMMARY | ~2019-02-28 | XMS | Encounter Summary ---
Demographics + + + | Address | [address] | | | [place] [address] | + + + | Home Phone [...] Team Providers + +------+ + | Care Temperer Name | Role | Phone | + +------+ + PCP | Unavailable | + +------+ + Encounter Details +--------+ + + + + | Date | Type | Department | Care Team | Description | +--------+ + + + + | 01/12/ | [facility] | [facility] | | | | 2008 | Encounter | MED CTR LABORATORY | | | | | | [address] [place] | | | | | | [place] | | | | | | [address] | | | | | | [phone] | | | +--------+ + + + [...] [place] | | | | | | [address] | | | | | | | | +--------+---------+ + + + | 11/24/ | Office | Cardiology | [place], | | | 2020 | Visit | | SINDHU Erickson [address] | | | | | | [place], | | | | | | [place] [address] | | | | | | [phone] | | | | | | | | +--------+---------+ + + + documented as of this encounter Visit Diagnoses Not on filedocumented in this encounter"
--- OUTSIDE RECORDS SUMMARY | ~2019-02-28 | XMS | Encounter Summary ---
Demographics + + + | Address | [address] | | | [place] [address] | + + + | Home Phone [...] Team Providers + +------+ + | Care Automobile Service Station Mechanic Name | Role | Phone | [...] | | [place] | [facility] | | | | | [address] | [place] [address] | | | | | [phone] | [phone] | | | | | | | [...] [place] | | | | | | [address] | | | | | | | | +--------+---------+ + + + | 11/24/ | Office | Cardiology | [place], | | | 2019 | Visit | | SINDHU Erickson [address] | | | | | | [place], | | | | | | [place] [address] | | | | | | [phone] | | | | | | | | +--------+---------+ + + + documented as of this encounter Visit Diagnoses Not on filedocumented in this encounter"
--- OUTSIDE RECORDS SUMMARY | ~2019-02-28 | XMS | Encounter Summary ---
Demographics + + + | Address | [address] | | | [place] [address] | + + + | Home Phone [...] + +------+ + | Care Mainspring Former Name | Role | Phone | + +------+ + | Juan Cherry DO | PCP | | + +------+ + Encounter Details +--------+ + + + + | Date | Type | Department | Care Team | Description | +--------+ + + + + | 08/11/ | Abstract | [facility] [place] | Jared Mcdonough, | Tachycardia (Primary | | 2013 | | CARDIOLOGY [address] | MD [address] | Dx) | | | | [place], | [place], | | | | | [place] [address] | [place] [address] | | | | | [phone] | [phone] | | | | | | | [...] + | Blood Pressure | 88/50 | 08/02/2013 2:47 PM | | | | | PDT | | + + + + + | Pulse | 100 | 08/02/2013 2:47 PM | | | | | PDT [...] + + + + | Weight | 64 kg (141 lb) | 08/02/2013 2:47 PM | | | | | PDT | | + + + + + | Height | 157.5 cm (5' 2") | 08/02/2013 2:47 PM | | | | | PDT | | + + + + + | Body Mass Index | 25.79 | 08/02/2013 2:47 PM | | | | | PDT [...] [place] | | | | | | [address] | | | | | | | | +--------+---------+ + + + | 11/24/ | Office | Cardiology | [place], | | | 2019 | Visit | | SINDHU Erickson [address] | | | | | | [place], | | | | | | [place] [address] | | | | | | [phone] | | | | | | | | +--------+---------+ + + + documented as of this encounter Visit Diagnoses + + | Diagnosis | + + | Tachycardia - Primary Tachycardia, unspecified | + + documented in this encounter
--- OUTSIDE RECORDS SUMMARY | ~2019-02-28 | XMS | Encounter Summary ---
Demographics + + + | Address | [address] | | | [place] [address] | + + + | Home Phone | | + + + | Preferred Language | Unknown | + + + | Marital Status | Single | + + + | Anglican Affiliation | 1041 | + + + | Race | Unknown | + + + | Ethnic Group | Unknown | + + + Author + + + | Author | [facility] | | | and [place] | + + + | Organization | [facility] | | [...] Team Providers + +------+ + | Care Roll Weigher Name | Role | Phone | + [...] + + | 05/30/ | Office | [facility] | Jamaledgardo Jared, | Chronic obstructive | | 2017 | Visit | MED CTR CARDIAC | MD Migdalia King | pulmonary disease, | | | | REHABILITATION [address] [place], | unspecified COPD | | | | [address] [place] | [place] [address] | type (HCC) (Primary | | | | [place] [address] | [phone] | Dx); Pulmonary | | | | [phone] | | emphysema, | | | | [...] this encounter Progress Notes Desean Chris - 05/30/2016 3:[address] [facility] [address] [place] [address] Cardiac Rehab Date: 05/30/2016 Patient Information Patient Name: Rosario [...] progress note. Electronically signed by: Desean Chris, 05/30/2016 15:39 Patient Name: Rosario Malik/: 1965/ documented [...] | | | | [place] | | | | | | [address] | | | | | | | | +--------+---------+ + + + | 11/24/ | Office | Cardiology | [place], | | | 2019 | Visit | | SINDHU Erickson [address] | | | | | | [place], | | | | | | [place] [address] | | | | | | [phone] | | | | | | | | +--------+---------+ + + + documented as of this encounter Visit Diagnoses + + | Diagnosis | + + | Chronic obstructive pulmonary disease, unspecified COPD type (HCC) - Primary | + + | Pulmonary emphysema, unspecified emphysema type (HCC) | + + documented in this encounter"
--- OUTSIDE RECORDS SUMMARY | ~2019-02-28 | XMS | Encounter Summary ---
Demographics + + + | Address | [address] | | | [place] [address] | + + + | Home Phone [...] Team Providers + +------+ + | Care College Intern Name | Role | Phone | [...] | SR | | | | | [phone] | | | +--------+ + + + [...] [place] | | | | | | [address] | | | | | | | | +--------+---------+ + + + | 11/24/ | Office | Cardiology | [place], | | | 2019 | Visit | | SINDHU Erickson [address] | | | | | | [place], | | | | | | [place] [address] | | | | | | [phone] | | | | | | | [...]
--- OUTSIDE RECORDS SUMMARY | ~2019-02-28 | XMS | Encounter Summary ---
Demographics + + + | Address | [address] | | | [place] [address] | + + + | Home Phone [...] Team Providers + +------+ + | Care Headlight Assembler Name | Role | Phone | + +------+ + PCP | Unavailable | + +------+ + Encounter Details +--------+ + + + + | Date | Type | Department | Care Team | Description | +--------+ + + + + | 12/19/ | [facility] | [facility] | | | | 2009 | Encounter | MED CTR LABORATORY | | | | | | [address] [place] | | | | | | [place] | | | | | | [address] | | | | | | [phone] | | | +--------+ + + + [...] [place] | | | | | | [address] | | | | | | | | +--------+---------+ + + + | 11/24/ | Office | Cardiology | [place], | | | 2020 | Visit | | SINDHU Erickson [address] | | | | | | [place], | | | | | | [place] [address] | | | | | | [phone] | | | | | | | | +--------+---------+ + + + documented as of this encounter Visit Diagnoses Not on filedocumented in this encounter"
--- OUTSIDE RECORDS SUMMARY | ~2019-02-28 | XMS | Encounter Summary ---
Demographics + + + | Address | [address] | | | [place] [address] | + + + | Home Phone [...] Team Providers + +------+ + | Care Surplus Property Disposal Agent Name | Role | Phone | [...] + + | 11/23/ | Emergency | [facility] | Alexi Guaman, | Post-op pain | | 2016 | | MED CTR EMERGENCY | MD [address] | (Primary Dx) | | | | CENTER [address] | [place] | | | | | [place] | [address] | | | | | [address] | | | | | | [phone] | | | +--------+ + + + [...] sent through Care Everywhere.PAIN MANAGEMENT AFTER SURGERY (HUNGARIAN)documented in this encounter Medications at Time of [...] | | | | | order to [facility]. | | | | | [...] | | | | | | [facility]. | | | | | | | [...] | 0 | 10/13/19 | | | Afqncxettj-IGKL-Ingu | mouth as needed. | | | 16 | 7 | | -Cod [id number] MG | | | | | | [...] [place] | | | | | | [address] | | | | | | | | +--------+---------+ + + + | 11/24/ | Office | Cardiology | [place], | | | 2019 | Visit | | SINDHU Erickson [address] | | | | | | [place], | | | | | | [place] [address] | | | | | | [phone] | | | | | | | [...]
--- OUTSIDE RECORDS SUMMARY | ~2019-02-28 | XMS | Encounter Summary ---
Demographics + + + | Address | [address] | | | [place] [address] | + + + | Home Phone [...] + +------+ + | Care Coating Machine Helper Name | Role | Phone | [...] Description | +--------+--------+ + + + | 03/17/ | Refill | [facility] [place] | [place], | Medication Refill | | 2018 | | CARDIOLOGY [address] | SINDHU Erickson [address] | | | | | [place], | [place], | | | | | [place] [address] | [place] [address] | | | | | [phone] | [phone] | | | | | | | [...] | | | | | | [place] [address] | | | | | | [phone] | | | | | | | | +--------+---------+ + + + documented as of this encounter Visit Diagnoses Not on filedocumented in this encounter"
--- OUTSIDE RECORDS SUMMARY | ~2019-02-28 | XMS | Encounter Summary ---
Demographics + + + | Address | [address] | | | [place] [address] | + + + | Home Phone [...] Team Providers + +------+ + | Care Cork Molder Name | Role | Phone | [...] | +--------+ + + + + | 08/13/ | Emergency | [facility] | Guru Cárdenas, | COPD with acute | | 2013 | | [facility] EM[facility]Y | [place] [address] | exacerbation (HCC) | | | | [facility] [address] | [facility] [place] | (Primary Dx) | | | | [place], [place] | [place] [address] | | | | | [address] | [phone] | | | | | [phone] | | | +--------+ + + + [...] + + + | Blood Pressure | 107/80 | 08/13/2013 11:14 PM | | | | | PDT | | + + + + + | Pulse | 82 | 08/13/2013 11:14 PM | | | | | PDT | | + + + + + | Temperature | 36.3 C (97.3 F) | 08/13/2013 8:41 PM | | | | | PDT | | + + + + + | Respiratory Rate | 22 | 08/13/2013 11:14 PM | | | | | PDT | | + + + + + | Oxygen Saturation | 95% | 08/13/2013 11:14 PM | | | | | PDT | | + + + + + | Inhaled Oxygen | - | - | | | Concentration | | | | + + + + + | Weight | 66.7 kg (147 lb) | 08/13/2013 8:41 PM | | | | | PDT | | + + + + + | Height | 157.5 cm (5' 2.01") | 08/13/2013 8:41 PM | | | | | PDT | | + + + + + | Body Mass Index | 26.88 | 08/13/2013 8:41 PM | | | | | PDT [...] as of this encounter Discharge Instructions Instructions Guru Cárdenas MD - 08/13/2013Take the medication as prescribed Return immediately if your symptoms worsen Follow closely with your primary care provider AttachmentsThe following attachments cannot be sent through [...] | | | | | order to [facility]. | | | | | + [...] | | | | send order to [facility] | | | | | | | [facility]. | | | | | | [...] +---------+ + + | predniSONE | Take 6 tablets by | 30 | 0 | 08/14/19 | | | (DELTASONE) 10 mg | [...] [place] | | | | | | [address] | | | | | | | | +--------+---------+ + + + | 11/24/ | Office | Cardiology | [place], | | | 2019 | Visit | | SINDHU Erickson [address] | | | | | | [place], | | | | | | [place] [address] | | | | | | [phone] | | | | | | | | +--------+---------+ + + + documented as of this encounter Procedures + +--------+ + + + | Procedure Name | Priori | Date/Time | Associated Diagnosis | Comments | | | ty | | | | + +--------+ + + + | XR CHEST AP PORTABLE | STAT | 08/13/2013 | | Results for this | | | | 8:56 PM | | procedure are in the | | | | PDT | | results section. | + +--------+ + + + | ED INFORMATION | Routin | 08/13/2013 | | Results for this | | EXCHANGE | e | 8:38 PM | | procedure are in the | | | | PDT | | results section. | + +--------+ + + + documented in this encounter Results XR Chest AP Portable (08/13/2013 8:56 PM PDT) + + | Specimen | + + | | + + + + + | Narrative | Performed At | + + + | EXAM: XR CHEST AP PORTABLE dated 08/13/2013 8:50 PM HISTORY: | [facility] | | SHORTNESS OF BREATH Comparison: July 14, 2013 TECHNIQUE: A | LAB | | single portable view of the chest. FINDINGS: The lungs are | | | symmetrically aerated. They are clear. There are no large pleural | | | effusions. There is no pneumothorax. The cardiac and mediastinal | | | contours are not enlarged. The visible osseous structures are | | | unremarkable. IMPRESSION - No acute disease. Dictated | | | and Signed by: Lencho Silva MD Electronically signed: 08/14/2013 | | | 10:00 AM | | + + + + + | Procedure Note | + + | Reed, Rad Results In - 08/14/2013 10:03 AM PDT EXAM: XR CHEST AP PORTABLE dated | | 08/13/2013 8:50 PMHISTORY: SHORTNESS OF BREATHComparison: July 14, 2013TECHNIQUE: A single | | portable view of the chest.FINDINGS:The lungs are symmetrically aerated. They are | | clear. There are no largepleural effusions. There is no pneumothorax. The cardiac and | | mediastinalcontours are not enlarged. The visible osseous structures are unremarkable. | | IMPRESSION -No acute disease. Dictated and Signed by: Lencho Silva MD | | Electronically signed: 08/14/2013 10:00 AM | | | |FINDINGS: | |The lungs are symmetrically aerated. They are clear. There are no large | |pleural effusions. There is no pneumothorax. The cardiac and mediastinal | |contours are not enlarged. The visible osseous structures are unremarkable. | | | |IMPRESSION - | | | |No acute disease. | | | |Dictated and Signed by: Lencho Silva MD | | Electronically signed: 08/14/2013 10:00 AM | + + + +---------+ + + | Performing | Address | City/State/Zipcode | Phone Number | | Organization | | | | + +---------+ + + | [facility] | | | [phone] | + +---------+ + + | [facility] | | | [phone] | + +---------+ + + ED INFORMATION EXCHANGE (08/13/2013 8:38 PM PDT) + + | Specimen | + + | | + + + + + | Narrative | Performed At | + + + | VISIT TRACKING (3 MO.) Visit Date Location | [facility] | | Type Diagnoses | | | -------- | | | ---- 08/13/2013 20:37 [place] | | | [facility] COPD Exasperation; | | | 07/18/2013 12:06 [facility] | | | Emergency Arm Laceration; | | | | | | Open wound of upper arm, without mention of complication; | | | | | | cut on Lft arm; 07/14/2013 00:15 | | | [facility] Emergency Shortness of | | | Breath; | | | Chronic obstructive | | | asthma with (acute) exacerbation; 06/19/2013 21:06 [place] | | | [facility] Emergency Obstructive chronic | | | bronchitis with (acute) exacerbation; | | | | | | Shortness of Breath; | | | diff | | | breathing; 06/19/2013 11:03 [facility] | | | Emergency COPD exasperation; 05/23/2013 19:52 | | | [facility] Emergency Obstructive | | | chronic bronchitis with (acute) exacerbation; | | | | | | Obstructive chronic bronchitis with (acute) | | | exacerbation; | | | sob; | | | | | | Shortness of Breath; VISIT COUNT (1 | | | YR.) Visits Medicaid NE Dx Location ------ | | | --------- 12 0 | | | [facility] 12 0 | | | Total Note: Visits indicate total known visits. Medicaid | | | NE Dx are the number of primary diagnoses on the [facility]'s non-emergent dx | | | list. | | [...] | | | + +--------+ +-------+------+------+ | albuterol 2.5 mg/3 mL nebulizer | Given | 08/14/19 | 10 mg | | | | solution 10 mg 10 mg, | | 14 10:16 | | | | | Nebulization, RT Once, Fri | | PM PDT | | | | | 08/13/13 at 2200, For 1 dose, RT | | | | | | | will administer., | | | | | | + +--------+ +-------+------+------+ +---+---+ | | | +---+---+ + +-------+ +-------+---+---+ | albuterol-ipratropium (DUONEB) | Given | 08/14/19 | 3 mLs | | | | 2.5-0.5 mg/3 mL nebulizer | | 14 8:55 | | | | | solution 3 mL 3 mL, | | PM PDT | | | | | Nebulization, RT Once, Fri | | | | | | | 08/13/13 at 2115, For 1 dose, RT | | | | | | | will administer., | | | | | | + +-------+ +-------+---+---+ +---+---+ | | | +---+---+ + +-------+ +---------+---+---+ | methylPREDNISolone sodium | Given | 08/14/19 | 62.5 mg | | | | succinate (solu-MEDROL) 62.5 | | 14 9:08 | | | | | mg/mL injection 62.5 mg 62.5 mg, | | PM PDT | | | | | Intravenous, ONCE, 08/13/13 | | | | | | | at 2115, For 1 dose, Mix with 2 | | | | | | | mL provided diluent to make 62.5 | | | | | | | mg/mL., | | | | | | + +-------+ +---------+---+---+ +---+---+ | | | +---+---+ documented in this encounter
--- OUTSIDE RECORDS SUMMARY | ~2019-02-28 | XMS | Encounter Summary ---
Demographics + + + | Address | [address] | | | [place] [address] | + + + | Home Phone [...] Team Providers + +------+ + | Care Mergers And Acquisitions Manager Name | Role | Phone | [...] Description | +--------+---------+ + + + | 10/16/ | Office | [facility] | [place], | Tachycardia (Primary | | 2017 | Visit | CARDIOLOGY [address] | SINDHU Erickson [address] | Dx); Paroxysmal | | | | [place] [facility] [facility] [place], | [place], | atrial tachycardia | | | | [place] [address] | [place] [address] | (HCC) | | | | [phone] | [phone] | | | | | | | [...] + | Blood Pressure | 110/68 | 10/16/2016 8:21 AM | | | | | PDT | | + + + + + | Pulse | 46 | 10/16/2016 8:21 AM | | | | | PDT | | + + + + + | Temperature | - | - | | + + + + + | Respiratory Rate | 18 | 10/16/2016 8:21 AM | | | | | PDT | | + + + + + | Oxygen Saturation | - | - | | + + + + + | Inhaled Oxygen | - | - | | | Concentration | | | | + + + + + | Weight | 77.1 kg (170 lb) | 10/16/2016 8:21 AM | | | | | PDT | | + + + + + | Height | 157.5 cm (5' 2") | 10/16/2016 8:21 AM | | | | | PDT | | + + + + + | Body Mass Index | 31.09 | 10/16/2016 8:21 AM | | | | | PDT [...] encounter Progress Notes Georgina Tanner ARNP - 10/16/2016 8:30 AM PDTFormatting of this note might be differen t from the original. PATIENT NAME: Rosario Malik : 1965: AGE: 51 y.o. PRIMARY CARE: Juan Cherry DO OUTPATIENT FOLLOW UP VISIT Date of Service: 10/16/2016 HISTORY OF PRESENT ILLNESS: Rosario Malik is a 51 y.o. female with a history of non-cardiac chest pain, inapprop riate atrial tachycardia, paroxysmal atrial tachycardia with palpitations, emphysema, hypoth yroidism obstructive sleep apnea and nocturnal hypoxemia and bipolar disorder. She is being seen today for follow up tachycardia and PAT. She was last seen 04/03/16 at which time she was to continue same therapeutic medical regimen and follow up in 6 months. Since that time, she has not been going to pulmonary rehabilita tion over the last 2 weeks because of migraines. She went to the ER 2 weeks ago with nausea and dizziness and gastric reflux. She was given PPI and she felt better. She has been not ta manjula it for a few days and now has acid reflux. She wants to go back on Pantoprazole. She h as been very dizzy and tired and sluggish. Heart rate has been "up and down". No chest pain and same shortness of breath. She is using 3 lt naso canula during the day and uses the BiPA P at night. MEDICAL, SURGICAL, AND PERSONAL HISTORY Past Medical, [...] tablet by mouth nightly. 30 tabl et 5 levothyroxine (SYNTHROID, LEVOTHROID) 75 MCG tablet Take [...] 3 L pantoprazole (PROTONIX) 40 mg tablet Take 1 tablet by mouth every morning (before break fast). 30 tablet 0 predniSONE (DELTASONE) 10 mg tablet Take 10 mg by mouth Daily. propranolol (INDERAL) 10 mg tablet Take 10 mg by mouth 2 times daily. She takes this da rigoberto Respiratory [place] [facility] [place] provide patient with necessary CPAP supplies ( she did not specify, okay to send order as appropriate) Diagnosis Code(s)327.23 . Length of Need 99 months. Please send order to [facility]. 1 each 0 Respiratory Therapy Supp[place] [facility] [place] CPAP back to 11-14 cm H2O. All necessary suppl ies. No oxygen bleed in. Diagnosis Code(s)327.23. Length of Need: Lifetime. Please send orde r to [facility]. This is not a new [...] Meperidine Panic attacks ROS Review of Systems Respiratory: Positive for shortness of breath. Cardiovascular: Negative for chest pain, palpitations, orthopnea, claudication, leg swellin g and PND. OBJECTIVE: PHYSICAL EXAM BP 110/68 | Pulse (!) 46 | Resp 18 | Ht 1.575 m (5' 2") | Wt 77.1 kg (170 lb) | BMI 31 .09 kg/m Physical Exam BP 118/72 mmHg | Pulse 72 | Resp 14 | Ht 1.575 m (5' 2") | Wt 81.647 kg (180 lb) | BMI 32.9 1 kg/m2 Physical Exam Constitutional: She appears well-developed [...] or performed during the hospital encounter of 08/04/15 ECG 12 lead Result Value Ref Range INTERPRETATION TEXT Normal sinus rhythm prolonged QTc interval Early transition When compared with ECG of 16-APR-2015 15:51, subtle inferior ST elevation is no longer present Confirmed by RAFA WELLS MD ([id number]) on 08/06/2015 9:42:29 AM LAB RESULTS reviewed during visit today primarily from [facility]: LIPID Lab Results Component Value Date CHOLHDL 5.0 11/01/2015 LDLEX 143 (A) 11/01/2015 HDLEX 51 11/01/2015 TRIGEX 172 (A) 11/01/2015 CHOLEX 228 (A) 11/01/2015 CHEMISTRY Lab Results Component Value Date GLU 100 09/09/2016 GLUEX 85 07/03/2015 NA 138 09/09/2016 NAEX 141 07/03/2015 K 3.7 09/09/2016 KEX 4.5 07/03/2015 CL 107 09/09/2016 CLEX 103 07/03/2015 CO2 23 (L) 09/09/2016 CO2EX 28 07/03/2015 CALCIUM 9.1 09/09/2016 ALKPHOS 65 09/09/2016 AST 17 09/09/2016 ASTEX 23 07/03/2015 ALT 12 09/09/2016 ALTEX 16 07/03/2015 BILITOT 0.7 09/09/2016 CREA 0.72 09/09/2016 BUN 10 09/09/2016 EGFR >60 03/22/2013 EGFREX >60 07/03/2015 CREEX 0.9 07/03/2015 HEMATOLOGY Lab Results Component Value Date WBC 14.7 (H) 09/09/2016 WBCEX 8.1 07/11/2014 HGB 14.3 09/09/2016 HGBEX 13.7 07/11/2014 HCT 41.8 09/09/2016 HCTEX 40.5 07/11/2014 PLT 436 09/09/2016 PLTEX 370 07/11/2014 I reviewed records from PCP for office visit on 07/2016 which is summarized in the HPI. Above data and testing is reviewed this [...] She was seen at the ED of [facility] 3 weeks ago and again 1 [...] D. Patient has no further complaints of angina. She is trying to go back to pulmonary rehabilitation. She has had no increase in dyspnea more than her baseli ne. She is in a class II of [place] Heart Association functional class. There is no signs and symptoms of overt congestive heart failure. There are no fluid retention on physica l examination. 2. Palpitation secondary to the paroxysmal [...] and v entricular function done at the [facility]. LVEF 78%. C. Holter Monitor 08/16/13 [...] and therefore no diary was returned. F. She is bradycardic today. She has had symptoms of tiredness and dizziness and fatigue over the last 6-8 weeks. She has noticed in her oximetry that her re adings are going up and down getting as low as in the very low 40s and as high as 140-160 bp m. She states that this has gotten worse over the last couple of weeks. No syncope. She t china to continues to be active. 2. Emphysema/COPD: A. She is on oxygen. She will start going back to pulmonary rehab ilitation 3. Hypothyroidism 4. Obstructive sleep apnea and nocturnal hypoxemia A. She is utilizing BiPAP with no oxygen PLAN: 1. Check 48 hour Holter to evaluate arrhythmia 2. She will follow up in 2-4 weeks, or sooner with concerns. Portions of this chart may have been created with [employer] voice recognition software. Occasi onal wrong-word or [...] [place] | | | | | | [address] | | | | | | | | +--------+---------+ + + + | 11/24/ | Office | Cardiology | [place], | | | 2019 | Visit | | SINDHU Erickson [address] | | | | | | [place], | | | | | | [place] [address] | | | | | | [phone] | | | | | | | | +--------+---------+ + + + documented as of this encounter Procedures + +--------+ + + + | Procedure Name | Priori | Date/Time | Associated Diagnosis | Comments | | | ty | | | | + +--------+ + + + | ECG 12 LEAD | Routin | 10/16/2016 | Tachycardia | Results for this | | | e | 8:23 AM | | procedure are in the | | | | PDT | | results section. | + +--------+ + + + documented in this encounter Results Holter monitor - 48 hour (10/18/2016 11:09 AM PDT) + + + | Narrative | Performed At | + + + | Clay Mcdonough MD 10/18/2016 11:09 PATIENT NAME: | JUNE ALFORD | | Rosario Malik : 1965: AGE: 51 y.o. | | | PRIMARY CARE: Juan | | | DO CMAILLE Cherry EYEGLASS MAKER: Clya Mcdonough MD | | | 48-HOUR HOLTER [...] symptoms reported. | | | Signed by: Clay Mcdonough MD [facility] 10/18/2016, | | | 10:51 | | + + + + +---------+ + + | Performing | Address | City/State[facility] | Phone Number | | Organization | | | | + +---------+ + + | [facility] | | | | + +---------+ + + ECG 12 lead (10/16/2016 8:23 AM PDT) + + + + + + | Component | Value | Ref Range | Performed | Pathologist | | | | | At | Signature | + + + + + + | VENTRICULAR | 46 | BPM | [facility] | | | RATE EKG | | | | | + + + + + + | ATRIAL RATE | 46 | BPM | [facility] | | + + + + + + | P-R | 122 | ms | [facility] | | | INTERVAL | | | | | + + + + + + | QRS | 80 | ms | [facility] | | | DURATION | | | | | + + + + + + | Q-T | 468 | ms | [facility] | | | INTERVAL | | | | | + + + + + + | Q-T | 409 | ms | [facility] | | | INTERVAL | | | | | | (CORRECTED) | | | | | + + + + + + | P WAVE AXIS | 52 | degrees | [facility] | | + + + + + + | QRS AXIS | 58 | degrees | [facility] | | + + + + + + | T AXIS | 70 | degrees | [facility] | | + + + + + + | INTERPRETAT | Sinus bradycardiaLow | | [facility] | | | ION TEXT | voltage QRSBorderline | | | | | | ECGWhen compared with | | | | | | ECG of 04-AUG-2015 | | | | | | 11:21,Vent. rate has | | | | | | decreased BY 25 BPMQT | | | | | | has shortenedConfirmed | | | | | | by DANIEL PAUL, CLAY | | | | | | ([id number]) on 10/16/2016 | | | | | | 4:31:30 PM | | | | + + [...] Primary Tachycardia, unspecified | + + | Paroxysmal atrial tachycardia (HCC) Paroxysmal supraventricular tachycardia | + + documented in this encounter
--- OUTSIDE RECORDS SUMMARY | ~2019-02-28 | XMS | Encounter Summary ---
Demographics + + + | Address | [address] | | | [place] [address] | + + + | Home Phone [...] Team Providers + +------+ + | Care Social Psychologist Name | Role | Phone | + +------+ + PCP | Unavailable | + +------+ + Encounter Details +--------+ + + + + | Date | Type | Department | Care Team | Description | +--------+ + + + + | 09/27/ | [facility] | [facility] | | | | 2009 | Encounter | MED CTR LABORATORY | | | | | | [address] | | | | | | [place] | | | | | | [address] | | | | | | [phone] | | | +--------+ + + + [...] [place] | | | | | | [address] | | | | | | | | +--------+---------+ + + + | 11/24/ | Office | Cardiology | [place], | | | 2020 | Visit | | SINDHU Erickson [address] | | | | | | [place], | | | | | | [place] [address] | | | | | | [phone] | | | | | | | | +--------+---------+ + + + documented as of this encounter Visit Diagnoses Not on filedocumented in this encounter"
--- OUTSIDE RECORDS SUMMARY | ~2019-02-28 | XMS | Encounter Summary ---
Demographics + + + | Address | [address] | | | [place] [address] | + + + | Home Phone [...] Team Providers + +------+ + | Care Pararescue Craftsman Name | Role | Phone | + [...] NEPHROLOGY [address] | MD [address] | Dx) | | | | [address] | [address] [place] | | | | | [place], [place] | [place] [address] | | | | | [address] | [phone] | | | | | [phone] | | | +--------+ + + + [...] possible bacterial bronchitis till pt sees her club licensee. Pt was agreeable with plan. documented in [...] [place] | | | | | | [address] | | | | | | | | +--------+---------+ + + + | 11/24/ | Office | Cardiology | [place], | | | 2019 | Visit | | SINDHU Erickson [address] | | | | | | [place], | | | | | | [place] [address] | | | | | | [phone] | | | | | | | | +--------+---------+ + + + documented as of this encounter Visit Diagnoses + + | Diagnosis | + + | Bronchitis - Primary Bronchitis, not specified as acute or chronic | + + documented in this encounter"
--- OUTSIDE RECORDS SUMMARY | ~2019-02-28 | XMS | Encounter Summary ---
Demographics + + + | Address | [address] | | | [place] [address] | + + + | Home Phone [...] Team Providers + +------+ + | Care Abattoir Supervisor Name | Role | Phone | [...] [address] | | | | | [place], | [place] | | | | | [place] [address] | [address] | | | | | [phone] | | | +--------+--------+ + + + [...] [place] | | | | | | [address] | | | | | | | | +--------+---------+ + + + | 11/24/ | Office | Cardiology | [place], | | | 2019 | Visit | | SINDHU Erickson [address] | | | | | | [place], | | | | | | [place] [address] | | | | | | [phone] | | | | | | | | +--------+---------+ + + + documented as of this encounter Visit Diagnoses Not on filedocumented in this encounter"
--- OUTSIDE RECORDS SUMMARY | ~2019-02-28 | XMS | Encounter Summary ---
Demographics + + + | Address | [address] | | | [place] [address] | + + + | Home Phone [...] Team Providers + +------+ + | Care Newsperson Name | Role | Phone | + [...] + + | 12/15/ | Emergency | [facility] | Heriberto | Lower abdominal pain | | 2018 | | MED CTR EMERGENCY | Ozzy Kim MD [address] | (Primary Dx) | | | | [place] [address] | [facility] | | | | | Becker [place] | [place] [address] | | | | | [address] | [phone] | | | | | [phone] | | | +--------+ + + + [...] 12/15/2017Home and rest Drink plenty of fluids [place] for pain control Return here or see [...] | | | | order to [facility]. | | | | | + [...] [place] | | | | | | [address] | | | | | | | | +--------+---------+ + + + | 11/24/ | Office | Cardiology | [place] | | | 2020 | Visit | | SINDHU Erickson [address] | | | | | | [place], | | | | | | [place] [address] | | | | | | [phone] | | | | | | | [...] W?MRN: | | | | | | [id number] | | | [id number] | | | his | | | [...] | | | rics | | | Jenison | | | d | | | [...] | | | rics | | | Jenison | | | d 6 0 | [...] | | | FILTRATION | mL/min/1.73m2 | [facility] | | | CROATIAN | RATE,ESTIMATED | | MEDICAL | | | | mL/min/1.24j6Mbtr than | | CENTER - | | [...] [facility] | | | | | | [facility] | | | | | | [...] + | [address] | [address] | [place] | [phone] | | [facility] | | [address] | | | - LABORATORY | | [...] ST. | [address] | [place], [place] | [phone] | | [facility] | | [address] | | | - LABORATORY | | [...] [address] | [place] | [phone] | | [facility] | | [address] | | | - LABORATORY | | [...] 1.001 - 1.030 | | | | [place], | | | | | | UA, [...]
--- OUTSIDE RECORDS SUMMARY | ~2019-02-28 | XMS | Encounter Summary ---
Demographics + + + | Address | [address] | | | [place] [address] | + + + | Home Phone [...] Team Providers + +------+ + | Care Color Straining Bag Washer Name | Role | Phone | [...] | | | | Rehabilitatio | | [place] [address] | | | | n | | [address] | [place], | | | | | | [place], | [place] [address] | | | | | | [place] | Phone: | | | | | | [address] | [phone] | | | | | | Phone: | Fax: | | | | | | [phone] | [phone] | | | | | | Fax: | | | | | | | [phone] | | +--------+--------+ + + + + Encounter Details +--------+---------+ + + + | Date | Type | Department | Care Team | Description | +--------+---------+ + + + | 03/28/ | Office | [facility] [place] | Aaron Santoyo, | Concussion with | | 2016 | Visit | PHYSIATRY [address] | [address] | brief loss of | | | | [place], | [place], [place] | consciousness | | | | [place] [address] | [address] | (Primary Dx); | | | | [phone] | | Post-concussion | | | | [...] MD - 03/28/2016 11:41 AM PST [facility] PHYSIATRY [address] [place] [address] OFFICE NOTE AARON SANTOYO JR, MD Patient: JADYN SCHMITZ Admitting: MR #: [id number] LOC: PT TYPE: Adm Date: 03/28/2016 : [...] attacks. CURRENT MEDICATIONS: Albuterol inhaler. DuoNeb nebulized. Njyjeffyxb-Rnkblil-whankvyx-codeine as needed for headache. Advair inhaler. Gabapentin 800 mg 3 times per day. 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 2. Postconcussion headaches, [...] Transcribed on 03/28/2016 12:22:07 by drew job# [id number] Confirmation #: [id number] cc: YONG CHERRY DO [facility], Aaron Kim MD - 03/28/2016 11:21 AM PSTThis office note has been dictated. Report Confirmation# [id number] signed by Aaron Santoyo MD at 03/28/2016 [...] [place] | | | | | | [address] | | | | | | | | +--------+---------+ + + + | 11/24/ | Office | Cardiology | [place], | | | 2019 | Visit | | SINDHU Erickson [address] | | | | | | [place], | | | | | | [place] [address] | | | | | | [phone] | | | | | | | [...]
--- OUTSIDE RECORDS SUMMARY | ~2019-02-28 | XMS | Encounter Summary ---
Demographics + + + | Address | [address] | | | [place] [address] | + + + | Home Phone [...] Providers + +------+ + | Care Director Web Name | Role | Phone | + [...] [address] | | | | | [place], | [place] | | | | | [place] [address] | [address] | | | | | [phone] | | | +--------+--------+ + + + [...] [place] | | | | | | [address] | | | | | | | | +--------+---------+ + + + | 11/24/ | Office | Cardiology | [place], | | | 2019 | Visit | | SINDHU Erickson [address] | | | | | | [place], | | | | | | [place] [address] | | | | | | [phone] | | | | | | | | +--------+---------+ + + + documented as of this encounter Visit Diagnoses Not on filedocumented in this encounter"
--- OUTSIDE RECORDS SUMMARY | ~2019-02-28 | XMS | Encounter Summary ---
Demographics + + + | Address | [address] | | | [place] [address] | + + + | Home Phone [...] Team Providers + +------+ + | Care Pony Cylinder Press Operator Name | Role | Phone [...] [address] [place] | [place] [address] | | | | | [place], [place] | [phone] | | | | | [address] | | | | | | [phone] | | | +--------+ + + + [...] [place] | | | | | | [address] | | | | | | | | +--------+---------+ + + + | 11/24/ | Office | Cardiology | [place], | | | 2019 | Visit | | SINDHU Erickson [address] | | | | | | [place], | | | | | | [place] [address] | | | | | | [phone] | | | | | | | | +--------+---------+ + + + documented as of this encounter Visit Diagnoses + + | Diagnosis | + + | Sprain of chest wall - Primary Other specified sites of sprains and strains | + + documented in this encounter"
--- OUTSIDE RECORDS SUMMARY | ~2019-02-28 | XMS | Encounter Summary ---
Demographics + + + | Address | [address] | | | [place] [address] | + + + | Home Phone [...] Team Providers + +------+ + | Care Traffic Controller Cable Name | Role | Phone | + [...] + + | 12/28/ | Office | [facility] [place] | [place], | COPD exacerbation | | 2012 | Visit | PULMONARY [address] | Loreta Alonso MD | ([facility]) (Primary Dx); | | | | [place], | | [place] (obstructive | | | | [place] [address] | | sleep apnea); | | | | [phone] | | Central sleep apnea | +--------+---------+ [...] MD [place] Pulmonary and Critical Care [facility] [address] [place], [address] HPI Rosario Malik is a 47 y.o. female patient of Juan Cherry here today for follow up of COPD. She notes that she moved back from [place] in November at some point. She had a difficult t francy while in [place], requiring hospitalization 2 times at [facility], once in September an d October. She returned, and developed symptoms of an exacerbation, and called in. We referred her to urgent care, and she went to emergency room. She was hypoxemic despite nebulizers, and so wa s admitted. She was in the hospital for two nights. Before she left for [place], she was on Advair and Combivent. She then added Ventolin/Prov entil. She then started Spiriva at her most recent hospitalization. Curently, she is on Spir aravind, Advair, Combivent, ProAir, and albuterol nebulizers. She was given levofloxacin at discharge, but it apparently reacts with her Geodon, so was n ot filled by [facility]. 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 Please se nd order to [facility]. This is not a new order, [...] type: ResMedS9 auto CPAP Home Health Company: [employer] CPAP Pressure: 11-14 cmH2O Median Titrated Pressure: [...] made to ensure accuracy; however, inadvertent computerized claims account specialist errors may be pre sent. documented [...] [place], | | | | | | [place] [address] | | | | | | [phone] | | | | | | | [...]
--- OUTSIDE RECORDS SUMMARY | ~2019-02-28 | XMS | Encounter Summary ---
Demographics + + + | Address | [address] | | | [place] [address] | + + + | Home Phone [...] Team Providers + +------+ + | Care Speech Language Pathology Assistant Name | Role | Phone | + +------+ + PCP | Unavailable | + +------+ + Encounter Details +--------+ + + + + | Date | Type | Department | Care Team | Description | +--------+ + + + + | 12/19/ | [facility] | [facility] | | | | 2009 | Encounter | MED CTR LABORATORY | | | | | | [address] | | | | | | [place] | | | | | | [address] | | | | | | [phone] | | | +--------+ + + + [...] [place] | | | | | | [address] | | | | | | | | +--------+---------+ + + + | 11/24/ | Office | Cardiology | [place], | | | 2020 | Visit | | SINDHU Erickson [address] | | | | | | [place], | | | | | | [place] [address] | | | | | | [phone] | | | | | | | | +--------+---------+ + + + documented as of this encounter Visit Diagnoses Not on filedocumented in this encounter"
--- OUTSIDE RECORDS SUMMARY | ~2019-02-28 | XMS | Encounter Summary ---
Demographics + + + | Address | [address] | | | [place] [address] | + + + | Home Phone [...] Team Providers + +------+ + | Care Language Teacher Name | Role | Phone [...] | 08/09/ | Telephone | [facility] | Jared Mcdonough, | Other (Initial | | 2013 | | CARDIOLOGY [address] | [address] | Intake) | | | | [place], | [place], | | | | | [place] [address] | [place] [address] | | | | | [phone] | [phone] | | | | | | | [...] [place] | | | | | | [address] | | | | | | | | +--------+---------+ + + + | 11/24/ | Office | Cardiology | [place], | | | 2019 | Visit | | SINDHU Erickson [address] | | | | | | [place], | | | | | | [place] [address] | | | | | | [phone] | | | | | | | | +--------+---------+ + + + documented as of this encounter Visit Diagnoses Not on filedocumented in this encounter"
--- OUTSIDE RECORDS SUMMARY | ~2019-02-28 | XMS | Encounter Summary ---
Demographics + + + | Address | [address] | | | [place] [address] | + + + | Home Phone [...] Providers + +------+ + | Care Telephone Order Clerk Name | Role | Phone | [...] + + | 02/04/ | Refill | [facility] | Mukul Clark MD | Medication Refill | | 2019 | | PULMONOLOGY [address] | | | | | [address] | [address] [place], [place] | | | | | [place], [place] | [address] | | | | | [address] | | | | | | [phone] | | | +--------+--------+ + + + [...] | | | | | | [place] [address] | | | | | | [phone] | | | | | | | | +--------+---------+ + + + documented as of this encounter Visit Diagnoses + + | Diagnosis | + + | Centrilobular emphysema (HCC) - Primary | + + documented in this encounter"
--- OUTSIDE RECORDS SUMMARY | ~2019-02-28 | XMS | Encounter Summary ---
Demographics + + + | Address | [address] | | | [place] [address] | + + + | Home Phone [...] Team Providers + +------+ + | Care Direct Sales Consultant Name | Role | Phone | [...] + | 11/08/ | Office | [facility] | Lencho Astorga, | Axillary abscess | | 2015 | Visit | CARE [address] | [address] | (Primary Dx) | | | | [place] | [place] | | | | | [address] | [address] | | | | | [phone] | | | +--------+---------+ + + + [...] [place] | | | | | | [address] | | | | | | | | +--------+---------+ + + + | 11/24/ | Office | Cardiology | [place], | | | 2019 | Visit | | SINDHU Erickson [address] | | | | | | [place] | | | | | | [place] [address] | | | | | | [phone] | | | | | | | | +--------+---------+ + + + documented as of this encounter Visit Diagnoses + + | Diagnosis | + + | Axillary abscess - Primary Cellulitis and abscess of upper arm and forearm | + + documented in this encounter"
--- OUTSIDE RECORDS SUMMARY | ~2019-02-28 | XMS | Encounter Summary ---
Demographics + + + | Address | [address] | | | [place] [address] | + + + | Home Phone [...] Providers + +------+ + | Care Lens Polisher Hand Name | Role | Phone | + +------+ + | Juan Cherry DO | PCP | | + +------+ + Reason for Visit +--------+ + | Reason | Comments | +--------+ + | Other | Post op pain | +--------+ + Encounter Details +--------+ + + + + | Date | Type | Department | Care Team | Description | +--------+ + + + + | 11/22/ | Telephone | [facility] | Andriy Weber | Other (Post op pain) | | 2015 | | [address] | MD [address] | | | | | [place] | THOM [facility] | | | | | [address] | [place] [address] | | | | | [phone] | [phone] | | | | | | | [...] [place] | | | | | | [address] | | | | | | | | +--------+---------+ + + + | 11/24/ | Office | Cardiology | Flroes, | | | 2019 | Visit | | SINDHU Erickson [address] | | | | | | [place], | | | | | | [place] [address] | | | | | | [phone] | | | | | | | | +--------+---------+ + + + documented as of this encounter Visit Diagnoses Not on filedocumented in this encounter"
--- OUTSIDE RECORDS SUMMARY | ~2019-02-28 | XMS | Encounter Summary ---
Demographics + + + | Address | [address] | | | [place] [address] | + + + | Home Phone | | + + + | Preferred Language | Unknown | + + + | Marital Status | Single | + + + | Christianity Affiliation | 1041 | + + + | Race | Unknown | + + + | Ethnic Group | Unknown | + + + Author + + + | Author | [facility] | | | and [place] | + + + | Organization | [facility] | | [...] Providers + +------+ + | Care Field Court Researcher Name | Role | Phone | + [...] | esophagitis | [address] | [place] | | | | | presence not | [place], [place] | [place], | | | | | specified | [address] | [place] [address] | | | | | Procedures | Phone: | Phone: | | | | | NM Gastric | [phone] | [phone] | | | | | Emptying | Fax: | Fax: | | | | | | [phone] | [phone] | +--------+--------+ + + + + Reason [...] | | Gastroesopha | MD Jesus | [place] | | | | | geal reflux | [address] | MEDICAL | | | | | disease, | [address] | CENTER [address] | | | | | esophagitis | [address] | [place] | | | | | presence not | [place], [place] | [place], | | | | | specified | [address] | [place] [address] | | | | | Procedures | Phone: | Phone: | | | | | NM Gastric | [phone] | [phone] | | | | | Emptying | Fax: | Fax: | | | | | | [phone] | [phone] | +--------+--------+ + + + + Encounter Details +--------+ + + + + | Date | Type | Department | Care Team | Description | +--------+ + + + + | 04/02/ | Hospital | [facility] | Dio Yun | Gastroesophageal | | 2017 | Encounter | MED CTR [facility]UC[facility] | MD Jesus [address] | reflux disease, | | | | MEDICINE [address] | ROSEMARY OLMEDO [address] | esophagitis presence | | | | [place], | [place], [place] | not specified | | | | [place] [address] | [address] | | | | | [phone] | [phone] | | | | | | | [...] | | | | send order to [facility] | | | | | | [...] | 0 | 10/13/19 | | | Ibijduoogo-HNLA-Muve | mouth as needed. | | | 16 | 7 | | -Cod [id number] MG | | | | | | [...] [place] | | | | | | [address] | | | | | | | | +--------+---------+ + + + | 11/24/ | Office | Cardiology | [place], | | | 2019 | Visit | | SINDHU Erickson [address] | | | | | | [place], | | | | | | [place] [address] | | | | | | [phone] | | | | | | | [...]
--- OUTSIDE RECORDS SUMMARY | ~2019-02-28 | XMS | Encounter Summary ---
Demographics + + + | Address | [address] | | | [place] [address] | + + + | Home Phone [...] Team Providers + +------+ + | Care Mixer Operator Raw Salt Name | Role | Phone | + [...] | (Primary Dx) | | | | [address] | [address] | | | | | [phone] | | | +--------+---------+ + + + [...] [place] | | | | | | [address] | | | | | | | | +--------+---------+ + + + | 11/24/ | Office | Cardiology | [place], | | | 2019 | Visit | | SINDHU Erickson [address] | | | | | | [place], | | | | | | [place] [address] | | | | | | [phone] | | | | | | | | +--------+---------+ + + + documented as of this encounter Results XR Foot Left 3 + Vw (01/07/2013 2:30 PM PST) + + | Specimen | + + | | + + + + + | Narrative | Performed At | + + + | [facility] | [place] | | Department [address] [facility] | [facility] | | [ rep [address]] [ rep [facility] | | st zip] Signed | - IMAGING | | | | | Patient Name: JADYN SCHMITZ | | | Physician: FRANCA : 1965 Age: 47 Sex: F Unit | | | #: [id number] Exam Date: 01/07/13 Location: | | | [facility] Report #: [id number] Page: | | | %(RAD)RES..mtdd.print.filter("pg") of %(RAD) | | | RES..mtdd.print.filter("tpg") | | | | | | Accession Number: [id number] | | | LEFT FOOT, 01/07/2013 CLINICAL [...] Transcribed | | | Date/Time: 01/07/2013 15:01 C2 Tactical Analysis Technician: | | | <<Signature on File>> | | | Kobe | | | MD Tor01/07/13 [id number] <Electronically signed by Kobe Lentz MD> | | | Kobe Lentz MD 01/07/13 1430 C2 Tactical Analysis Technician: Advitechyariel | | | Vfezimaeofrar47/14/13 1501 Lencho Astorga MD | | + + + + + + + + | Performing | Address | City/State/Zipcode | Phone Number | | Organization | | | | + + + + + | [facility] [facility] | [address] | [place] | [phone] | | [facility] | | [address] | | | - IMAGING | | | | + + + + + documented in this encounter Visit Diagnoses + + | Diagnosis | + + | Contusion of foot including toes - Primary Contusion of foot | + + documented in this encounter
--- OUTSIDE RECORDS SUMMARY | ~2019-02-28 | XMS | Encounter Summary ---
Demographics + + + | Address | [address] | | | [place] [address] | + + + | Home Phone [...] Team Providers + +------+ + | Care Ceramic Engineer Name | Role | Phone | [...] + + | 12/15/ | Emergency | [facility] | Heriberto | Lower abdominal pain | | 2018 | | MED CTR EMERGENCY | Ozzy Kim MD [address] | (Primary Dx) | | | | VALLES MINES [address] | [place] [facility] | | | | | [place] | [place] [address] | | | | | [address] | [phone] | | | | | [phone] | | | +--------+ + + + [...] 12/15/2017Home and rest Drink plenty of fluids [place] for pain control Return here or see [...] | | | [facility]. | | | | | | [...] | | | | | ([facility]) | | | | | | [...] | | | | | ([facility]) | | | | | | [...] [place] | | | | | | [address] | | | | | | | | +--------+---------+ + + + | 11/24/ | Office | Cardiology | [place] | | | 2020 | Visit | | SINDHU Erickson [address] | | | | | | [place], | | | | | | [place] [address] | | | | | | [phone] | | | | | | | [...] W?MRN: | | | | | | [id number] | | | [id number] | | | his | | | [...] | | | rics | | | [place] | | | d | | | [...] | | | rics | | | [place] | | | d 6 0 | [...] | Procedure Note | + + | Vci, Rad Results In - 12/15/2017 8:34 AM [...] | | | FILTRATION | mL/min/1.73m2 | [facility] | | | [place] | RATE,ESTIMATED | | MEDICAL | | | | mL/min/1.15u1Ubkv than | | CENTER - | | [...] [facility] | | | | | | [facility] | | | | [...] + | [address] | [address] | [place] | [phone] | | [facility] | | [address] | | | - LABORATORY | | [...] ST. | [address] | [place], [place] | [phone] | | [facility] | | [address] | | | - LABORATORY | | [...] [address] | [place] | [phone] | | [facility] | | [address] | | | - LABORATORY | | [...] 1.001 - 1.030 | | | | [place], | | [...]
--- OUTSIDE RECORDS SUMMARY | ~2019-02-28 | XMS | Encounter Summary ---
Demographics + + + | Address | [address] | | | [place] [address] | + + + | Home Phone [...] Team Providers + +------+ + | Care Electrical Unit Rebuilder Name | Role | Phone | + [...] | 07/03/ | Office | [facility] | Maxim Delgado PA | GARRY on CPAP (Primary | | 2012 | Visit | SLEEP DISORDER [address] | [address] | Dx); Organic | | | | [address] [place] [place] | [place] | insomnia, | | | | [place] [address] | [address] | unspecified | | | | [phone] | | | +--------+---------+ + + + [...] 10/15/2011 AHI: 47.1 RDI: 53.4 Machine type: NOSTROMO ICT with full face mask obtained from: [facility] pressure is: 13 cm 95%: [...] error. I had her work with a vehicle maintenance technician to ensure that she was fitting [...] month, sooner prn. Fifteen minutes were spent [id number], wit h the majority of time spent [...] [place] | | | | | | [address] | | | | | | | | +--------+---------+ + + + | 11/24/ | Office | Cardiology | [place], | | | 2019 | Visit | | SINDHU Erickson [address] | | | | | | [place], | | | | | | [place] [address] | | | | | | [phone] | | | | | | | | +--------+---------+ + + + documented as of this encounter Visit Diagnoses + + | Diagnosis | + + | GARRY on CPAP - Primary Obstructive sleep apnea (adult) (pediatric) | + + | Organic insomnia, unspecified | + + documented in this encounter"
--- OUTSIDE RECORDS SUMMARY | ~2019-02-28 | XMS | Encounter Summary ---
Demographics + + + | Address | [address] | | | [place] [address] | + + + | Home Phone [...] Providers + +------+ + | Care Manager Shop Name | Role | Phone | [...] | | central | [address] | [place] | | | | | sleep apnea | [place] | [place], | | | | | GARRY | [place], | [place] [address] | | | | | (obstructive | [place] [address] | Phone: | | | | | sleep | Phone: | [phone] | | | | | apnea) | [phone] | Fax: | | | | | Procedures | Fax: | [phone] | | | | | [place] | [phone] | | | | | | 6/>YRS [...] + + | 02/08/ | Hospital | [facility] | Kevin Sandoval, | | | 2013 | Encounter | MED CTR SLEEP | [address] [place] | | | | | [facility] [address] | [place] | | | | | [place] | [address] | | | | | [address] | | | | | | [phone] | | | +--------+ + + + [...] | | | | | order to [facility]. | | | | | [...] | | | | send order to [facility] | | | | | | | [facility]. | | | | [...] [place] | | | | | | [address] | | | | | | | | +--------+---------+ + + + | 11/24/ | Office | Cardiology | [place], | | | 2019 | Visit | | SINDHU Erickson [address] | | | | | | [place], | | | | | | [place] [address] | | | | | | [phone] | | | | | | | [...]
--- OUTSIDE RECORDS SUMMARY | ~2019-02-28 | XMS | Encounter Summary ---
Demographics + + + | Address | [address] | | | [place] [address] | + + + | Home Phone [...] Team Providers + +------+ + | Care Nuclear Plant Technical Advisor Name | Role | Phone | + +------+ + | Juan Cherry DO | PCP | | + +------+ + Encounter Details +--------+ + + + + | Date | Type | Department | Care Team | Description | +--------+ + + + + | 11/08/ | Hospital | [facility] | Conversion | Asthma, moderate | | 2014 | Encounter | CENTER CARDIAC | Transaction, | persistent, | | | | PULMONARY REHAB | Provider Unknown | uncomplicated | | | | [address] [facility] | [phone] | | | | | [place], [place] | | | | | | [address] | | | | | | [phone] | | | +--------+ + + + [...] | | | send order to [facility] | | | | | | | [facility]. | | | | | | | [...] [place] | | | | | | [address] | | | | | | | | +--------+---------+ + + + | 11/24/ | Office | Cardiology | [place], | | | 2019 | Visit | | SINDHU Erickson [address] | | | | | | [place], | | | | | | [place] [address] | | | | | | [phone] | | | | | | | | +--------+---------+ + + + documented as of this encounter Visit Diagnoses + + | Diagnosis | + + | Asthma, moderate persistent, uncomplicated | + + documented in this encounter"
--- OUTSIDE RECORDS SUMMARY | ~2019-02-28 | XMS | Encounter Summary ---
Demographics + + + | Address | [address] | | | [place] [address] | + + + | Home Phone [...] Providers + +------+ + | Care Surveillance Director Name | Role | Phone | [...] + + | 03/01/ | Telephone | [facility] | Jared Mcdonough, | Other (having pain | | 2015 | | CARDIOLOGY [address] | [address] | after heart cath) | | | | [place], | [place], | | | | | [place] [address] | [place] [address] | | | | | [phone] | [phone] | | | | | | | [...] | | | | | | [place] [address] | | | | | | [phone] | | | | | | | | +--------+---------+ + + + documented as of this encounter Visit Diagnoses Not on filedocumented in this encounter"
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
--- OUTSIDE RECORDS SUMMARY | ~2019-02-28 | XMS | Encounter Summary ---
Demographics + + + | Address | [address] | | | [place] [address] | + + + | Home Phone [...] Providers + +------+ + | Care Financial Sales Assistant Name | Role | Phone | + +------+ + | Juan Cherry DO | PCP | | + +------+ + Encounter Details +--------+ + + + + | Date | Type | Department | Care Team | Description | +--------+ + + + + | 02/08/ | Abstract | [facility] [place] | [place], | | | 2013 | | CARDIOLOGY [address] | SINDHU Erickson [address] | | | | | [place], | [place], | | | | | [place] [address] | [place] [address] | | | | | [phone] | | | | | | | [...] [place] | | | | | | [address] | | | | | | | | +--------+---------+ + + + | 11/24/ | Office | Cardiology | [place], | | | 2019 | Visit | | SINDHU Erickson [address] | | | | | | [place] | | | | | | [place] [address] | | | | | | [phone] | | | | | | | | +--------+---------+ + + + documented as of this encounter Visit Diagnoses Not on filedocumented in this encounter"
--- OUTSIDE RECORDS SUMMARY | ~2019-02-28 | XMS | Encounter Summary ---
Demographics + + + | Address | [address] | | | [place] [address] | + + + | Home Phone [...] Team Providers + +------+ + | Care Fuel Dock Attendant Name | Role | Phone | [...] [address] | | | | | [place], | [place], | | | | | [place] [address] | [place] [address] | | | | | [phone] | | | | | | | [...] [place] | | | | | | [address] | | | | | | | | +--------+---------+ + + + | 11/24/ | Office | Cardiology | [place], | | | 2019 | Visit | | SINDHU Erickson [address] | | | | | | [place], | | | | | | [place] [address] | | | | | | [phone] | | | | | | | [...]
--- OUTSIDE RECORDS SUMMARY | ~2019-02-28 | XMS | Encounter Summary ---
Demographics + + + | Address | [address] | | | [place] [address] | + + + | Home Phone [...] Team Providers + +------+ + | Care Mechanic Name | Role | Phone | + +------+ + | Juan Cherry DO | PCP | | + +------+ + Encounter Details +--------+---------+ + + + | Date | Type | Department | Care Team | Description | +--------+---------+ + + + | 08/17/ | Office | [facility] | Meghan Garcia MD | GARRY (obstructive | | 2018 | Visit | SLEEP DISORDER [address] | [address] | sleep apnea) | | | | [address] [place] | [place] | (Primary Dx); CSA | | | | [place] [address] | [address] | (central sleep | | | | [phone] | | apnea); Insufficient | | | | | | sleep syndrome; | | | | | | Polypharmacy | +--------+---------+ + + + Social History [...] + | Blood Pressure | 100/70 | 08/17/2018 11:12 AM | | | | | PDT | | + + + + + | Pulse | 60 | 08/17/2018 11:12 AM | | | | | PDT | | + + + + + | Temperature | - | - | | + + + + + | Respiratory Rate | 16 | 08/17/2018 11:12 AM | | | | | PDT | | + + + + + | Oxygen Saturation | 95% | 08/17/2018 11:12 AM | | | | | PDT | | + + + + + | Inhaled Oxygen | - | - | | | Concentration | | | | + + + + + | Weight | 64.6 kg (142 lb 6.7 | 08/17/2018 11:12 AM | | | | oz) | PDT | | + + + + + | Height | - | - | | + + + + + | Body Mass Index | 26.91 | 06/18/2018 1:02 PM | | | [...] encounter Progress Notes Meghan Garcia MD - 08/17/2018 11:00 AM PDT The patient comes in to discuss sleep study results. My interpretation of the patient's s leep study, which I have reviewed with the patient, is as follows: Polysomnogram Report on Rosario Malik performed on August 03, 2018. PATIENT IDENTIFICATION: Rosario Malik IS a 53 y.o..-year-old female. with a history of COPD, bipolar disorder, hypothyroidism, paroxysmal atrial tachycardia, GERD, interstitial cystitis, and mild obstru ctive sleep apnea. She cannot remember how many sleep studies she has had so far. However, she was on CPAP f or several years before she was switched to bilevel [id number]. I reviewed the notes from Dr Chris Alarcon in [place], [place].It indicates that patient had CPAP intolerance [...] any of the sleep studies. Download on 07/02/18showed that patient was on bilevel-ST at 16/11 cm H2O with a breath rat e of 12 BPM. Detailed report showsed that AHI was elevated with occasional maximum at 40. She had not used the machine for the past 5-6 months. She stated since she stopped using her bilevel machine she has had problems with excessive daytime sleepiness, drowsy driving, and not feeling rested when she wakes up in the morning. When she was using her machine they were not the problem. Discharge summary from ER not dated 2018 indicates that she had an overnight oximetry on her bilateral whi le she was hospitalized, and noted to have residual hypoxemia. She stated she was told to stop using her bilevelmachine until she would be able to use t he bilevel with oxygen. she stated that the machine made her waking up with panic attack, feeling that she could n ot breathe, and she would get some "strokelike symptoms." She stated she had this problem one more time before she was hospitalized in December 2017. she was only using oxygen 3 LPM at night. 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 We performed a CPAP titration study on April 28, 2018, to determine the appropriate setting and pressure and also to see if she really needed nocturnal supplemental oxygen. The titration study was satisfactory. CPAPwas not tried as patienthadpreviously showe d CPAP intolerance.Bilevel-S was titrated up from 10/5 cm H2O to 19/15 cm H2O . Pressure of 13/8 cmH2O appeared to control obstructive sleep apnea in supine non-REM sleep. In R EMsleep,patient started to have numbers of obstructive sleep apnea at pressure of 13/8 c m H2O, and pressure was increased. Pressure of 16/11 cm H2O appeared to relatively control obstructive sleep apnea in supine REM sleep. Pressure continued to be increased for occas ional snoring and presumedobstructive events.It did not appearto make anypositive difference, and made Cflowlook evenworse. Also, patient started to have paradoxical b reathing as pressure was increased. Somewherein the middle of the study patient woke u p, calling with the urgency,statedthat"she woke like she did last year" panic with s troke like symptoms". Her SPO2 was above 90% and cflow was normal right before she woke up. I suspect higher pressures, mask leak, and anxiety caused these symptoms. Entire study sharmila e was performed on room air and supplementaloxygen was not added. Wake SPO2 was intheh igh 90%. Mean SpO2 was96%, brennon SpO2 was91%, and amount of total sleep time spent below SpO2 of 90% was0%.Transcutaneous [id number] 35-37mmHg during supine wake,a nd remained between 38 and 40 mmHg for entire study time.Hypoventilation was not observe d. Previous sleep study reports(external) mentioned thatpatient had hypoventilation duri ng sleep, thoughCO2 was not measured in those sleep studies. Patient was restarted on bilevel-S at 15/11 cm H2O. We made sure that she was not on bilev el ST. His download in follow-up visit showed excessive leak and elevated AHI. Even after they excessive limb which was addressed by changing the mask and Gupta was much lower, blair keller AHI was 6 and 13. It was sometimes higher. Patient continued to have awakenings at [facility], and also excessive daytime sleepiness. Though one of the reasons of her excessive dayti me sleepiness is her chronic sleep deprivation, but this sleep study was performed to once a gain reevaluate her baseline sleep related breathing disorder. BMI: 27.5 Technical Information: Please see technical data which is attached. Definitions (The AASM Manual for the Scoring of Sleep and Associated Events, Version 2.5; 2 018): Apnea: There is a drop in the peak signal excursion by 90% or greater of pre-alayna nt baseline using an oronasal thermal sensor (diagnostic study), PAP device flow (titration study), or an alternative apnea sensor (diagnostic study); the duration of the 90% or greate r drop in sensor signal is 10 seconds or longer. Obstructive Apnea: Event associated with continued or increased inspi ratory effort throughout the entire period of absent airflow. Central Apnea: Event associated with absent inspiratory effort throug hout the entire period of absent airflow. Mixed Apnea: Event associated with absent inspiratory effort in the i nitial portion of the event followed by resumption of inspiratory effort during the second p ortion of the event. Hypopnea: Nasal pressure excursion drop by 30% or more from baseline, lasting at lease 10 seconds and 90% of the event's duration meets this amplitude criteria. This is ass ociated with a 4% or greater desaturation from pre-baseline Respiratory Event Related Arousal: A sequence of breaths lasting 10 seconds or l onger characterized by increasing respiratory effort or by flattening of the inspiratory por tion of the nasal pressure (diagnostic study) or PAP device flow (titration study) waveform leading to arousal from sleep when the sequence of breaths does not meet criteria for an research engineer marine equipment ea or hypopnea. REVELANT MEDICATIONS: Gabapentin, prednisone, tramadol, Ziprasidone. SUBJECTIVE: The patient rated sleep quality during sleep study as usual. Resident Program Specialist note: Patient continues to struggle with mask seal at home. Tech noticed that t his might be due to lack of molars. In spite of leak she's been using bilevel every night. SLEEP ARCHITECTURE AND EEG: Lights out was 11:0 1 PM, and lights on was 05:45 AM. Patient was woken up shortly afte r 4 AM per her request so she could self administer her morning medications. She was surpr ised when she was informed that she had been sleeping. Total sleep time was 321.5 minutes. Sleep efficiency was 79.6% and was decreased. Sleep onset latency was 48.5 minutes and was increased. REM latency was 85.5 minutes and was within normal limits. Percent of time in stage N3 was 17.9% and was within normal limits. Percent of time in stage REM was 17.1 % and was within normal limits. Arousal Index for this diagnostic study was 24.3/hour and was mildly increased, with 18. 7 respiratory arousals/hour and 5.6 spontaneous arousals/hour. RESPIRATORY: Respiratory disturbance index (RDI) was 29.9, consisting of total 11 hypopneas, 25 obstr uctive apneas, 0 mixed apneas, and 56 central apneas and 68 RERAs. AHI was 17.2 and was mode rately elevated. Patient spent 100% of total sleep time in supine position. Sleep disordered breathing was not significantly worsened in REM sleep with REM AHI of 2 6.2 and REM RDI of 29.5. Non-REM AHI was 15.3 and non-REM RDI was 29.9. Mean SpO2 was 96 %, brennon SpO2 was 89%, and amount of total sleep time spent below SpO2 of 88% was 0. 4% Oxygen Desaturation Index (VICTOR MANUEL) was 4.5 and was not elevated. Snoring was intermittent and mouth breathing noted as well. ETCO2 was not elevated. There were numbers of central apneas with occasional periodicity in supine NREM sleep. P ost-arousal central apneas noted. Interestingly, central apneas were occasionally associate d with paradoxical breathing. Tor-Stone breathing was not observed. LIMB MOVEMENTS: Total sleep periodic limb movement index was 0 and was not increased. EKG: Normal sinus rhythm was noted with mean heart rate of 62, 59, 63 beats per minute in wake, non-REM, and REM sleep respectively.. INTERPRETATION: - This polysomnography showed sleep apnea which was both obstructive and central in nature, and it was moderate in frequency of events, with no significant desaturations. Patient spe nt entire study time in supine position. Sleep apnea was not significantly worsened worsen ed in stage R sleep. 17.1% of stage R sleep was captured. Brennon SpO2 was 89%, and amount o f total sleep time spent below SpO2 of 88% was 0. Frequent paradoxical breathing, at times i n the absence of obvious respiratory events, observed. Hypoventilation was not observed. - Sleep efficiency was mildly decreased, and sleep was mildly fragmented. - Periodic limb movement index was not elevated. RECOMMENDATIONS: Since patient is refusing to try CPAP again, and since her titration study on 04/28/18 showed that bilevel was able to control her sleep apnea especially if leak is controlled, we will continue with bilevel-S at 08/01 and make sure the leak is controlled. Other issue that is c ontributing to her excessive daytime sleepiness is her sleep/wake pattern, long naps, insuff icient sleep at night, lack of physical activity, etc. Today, I discussed the above results in detail with patient. She states that she was almos t fell asleep 10 times when she was driving back home from sleep center the day after her sl eep study night. Discussed that her excessive daytime sleepiness is likely multifactorial, and chronic sleep deprivation, sleep apnea, polypharmacy and several medications with sedati ve effects, lack of physical activity, and diet are some of the potential contributing facto rs. She believes that she is less sleepy when she is able to use her machine for longer hours a t night. She still struggling with the mask fit. she has tried several masks and currently is wearing an airtouch ff mask. One of the reason that she has problem with mask seal is b ecause she has several missing teeth. She is wearing her mask very tightly, however, she st ill sometimes wakes up with air leak. she has not tried nasal mask and chin strap. she wou ld like to try them. Her download shows that her AHI is lower when there is less Leak. I s ent a prescription to [place] for nasal mask and chin strap. I also discussed the impact of the sleep deprivation on her health, and excessive daytime s leepiness. She has minimal physical activity. She does some chores, and then she watches [employer] or is on her computer from 3 PM till 10:30 when she goes to bed. It takes 30-60 minutes f or her to fall asleep, but there are nights that it takes 2-3 hours for her to fall asleep. She wakes up at 4 AM spontaneously. She takes her medications, and starts her day. She sa ys she cannot go back to sleep. She states that she has been trying to avoid nap. I instru cted her to set aside 30-60 minutes before bedtime as buffer zone to relax and unwind. To av oid screen exposure and not to watch TV during that time. To read a paper book, or do some g uided meditation (CodersClan) in part of her living room that she can call it her relaxing spac e, so after a while her brain will associate it with bedtime and sleep. And to go to bed whe n she is sleepy. if she was not able to fall asleep within 15-20 minutes ( w/o looking at t he clock which can perpetuate insomnia) get out of bed and go to the relaxing space and do t he same thing until she is sleepy again, and to go back to bed. Also instructed her to use v isualization and mantra at bedtime. Hopefully, she will be able to set an earlier bedtime a nd get more hours of sleep, and this Will help with her excessive daytime sleepiness. Advised avoiding driving or other dangerous activities in case of drowsiness. RTC in 1-2 months. Vitals: 08/17/18 1112 BP: 100/70 Pulse: 60 Resp: 16 PainSc: 4 I spent 25 minutes face to face with the patient, with over 50% spent in counseling and/or coordination of care regarding sleep apnea, insomnia and sleep deprivation/ documented in this enco unter Plan of Treatment +--------+---------+ + + + | Date | Type | Specialty | Care Team | Description | +--------+---------+ + + + | 03/31/ | Office | Pulmonology | Mukul Clark MD | | | 2019 | Visit | | [address] | | | | | | [place] | | | | | | [address] | | | | | | | | +--------+---------+ + + + | 11/24/ | Office | Cardiology | [place], | | | 2019 | Visit | | SINDHU Erickson [address] | | | | | | [place], | | | | | | [place] [address] | | | | | | [phone] | | | | | | | | +--------+---------+ + + + documented as of this encounter Visit Diagnoses + + | Diagnosis | + + | GARRY (obstructive sleep apnea) - Primary Obstructive sleep apnea (adult) (pediatric) | + + | CSA (central sleep apnea) Unspecified sleep apnea | + + | Insufficient sleep syndrome Persistent disorder of initiating or maintaining | | wakefulness | + + | Polypharmacy Issue of repeat prescriptions | + + documented in this encounter
--- OUTSIDE RECORDS SUMMARY | ~2019-02-28 | XMS | Encounter Summary ---
Demographics + + + | Address | [address] | | | [place] [address] | + + + | Home Phone [...] Team Providers + +------+ + | Care Dye Tub Tender Name | Role | Phone | + +------+ + | Juan Cherry DO | PCP | | + +------+ + Encounter Details +--------+ + + + + | Date | Type | Department | Care Team | Description | +--------+ + + + + | 04/12/ | Hospital | [facility] | [place], | COPD exacerbation | | 2013 | Encounter | MED CTR GENERIC OP | Loreta Alonso MD | ([facility]) | | | | CONV DEPT [address] | | | | | | [place], | | | | | | [place] [address] | | | | | | [phone] | | | +--------+ + + + [...] | | | | | | | [facility]. | | | | | [...] days. | | | | | | ([facility]) | | | | | | [...] [place] | | | | | | [id number] | | | | | | | | +--------+---------+ + + + | 11/24/ | Office | Cardiology | [place] | | | 2019 | Visit | | SINDHU Erickson [address] | | | | | | [place], | | | | | | [place] [address] | | | | | | [phone] | | | | | | | [...] | + + + + + | [facility] | [address] | [place] | [phone] | | [facility] | | [address] | | | - LABORATORY | | | | + + + + + | [facility] | [address] | [place], [place] | | | [facility] | | [address] | | | - LABORATORY | | [...] + | [facility] | [address] | [place] | [phone] | | [facility] | | [address] | | | - LABORATORY | | | | + + + + + | [facility] | [address] | [place], [place] | | | [facility] | | [address] | | | - LABORATORY | | | | + + + + + documented in this encounter Visit Diagnoses + + | Diagnosis | + + | COPD exacerbation (HCC) Obstructive chronic bronchitis with exacerbation | + + documented in this encounter"
--- OUTSIDE RECORDS SUMMARY | ~2019-02-28 | XMS | Encounter Summary ---
Demographics + + + | Address | [address] | | | [place] [address] | + + + | Home Phone [...] Team Providers + +------+ + | Care Shower Screen Installer Name | Role | Phone | [...] + | 08/23/ | Telephone | [facility] | Jared Mcdonough, | Records Request | | 2013 | | CARDIOLOGY [address] | MD [address] | | | | | [place], | [place], | | | | | [place] [address] | [place] [address] | | | | | [phone] | [phone] | | | | | | | [...] [place] | | | | | | [id number] | | | | | | | | +--------+---------+ + + + | 11/24/ | Office | Cardiology | [place], | | | 2019 | Visit | | SINDHU Erickson [address] | | | | | | [place] | | | | | | [place] [address] | | | | | | [phone] | | | | | | | | +--------+---------+ + + + documented as of this encounter Visit Diagnoses Not on filedocumented in this encounter"
--- OUTSIDE RECORDS SUMMARY | ~2019-02-28 | XMS | Encounter Summary ---
Demographics + + + | Address | [address] | | | [place] [address] | + + + | Home Phone [...] Team Providers + +------+ + | Care Lye Bath Operator Name | Role | Phone | [...] + + | 11/22/ | Emergency | [facility] | Bishop Alatorre, | Acute post-operative | | 2016 | | MED CTR EMERGENCY | [place] [address] | pain (Primary Dx); | | | | CENTER [address] | [place] | Bladder pain | | | | [place] | [address] | | | | | [address] | | | | | | [phone] | | | +--------+ + + + [...] sent through Care Everywhere.PAIN MANAGEMENT AFTER SURGERY (GREEK)documented in this encounter Medications at Time of [...] | | | | send order to [facility] | | | | | | | [facility]. | | | | | [...] | | ([facility]) | | | | | | + [...] | 0 | 10/13/19 | | | Ijarrkjmzp-QEQY-Ojjc | mouth as needed. | | | 16 | 7 | | -Cod [id number] MG | | | | | | [...] | | ([facility]) | | | | | | + [...] [place] | | | | | | [address] | | | | | | | | +--------+---------+ + + + | 11/24/ | Office | Cardiology | [place] | | | 2019 | Visit | | SINDHU Erickson [address] | | | | | | [place], | | | | | | [place] [address] | | | | | | [phone] | | | | | | | [...] | | | | | | Starting [facility] 11/23/15 at 1927 | | | | | | + + + + +------+------+ +---+---+ | | | +---+---+ documented in this encounter
--- OUTSIDE RECORDS SUMMARY | ~2019-02-28 | XMS | Encounter Summary ---
Demographics + + + | Address | [address] | | | [place] [address] | + + + | Home Phone [...] Providers + +------+ + | Care Strip Mill Operator Name | Role | Phone | + +------+ + | Juan Cherry DO | PCP | | + +------+ + Reason for Visit +---------+ + | Reason | Comments | +---------+ + | Results | CPAP download | +---------+ + Encounter Details +--------+ + + + + | Date | Type | Department | Care Team | Description | +--------+ + + + + | 04/13/ | Telephone | [facility] | [place], | Results (CPAP | | 2013 | | PULMONARY [address] | Loreta Alonso MD | download) | | | | [place], | | | | | | [place] [address] | | | | | | [phone] | | | +--------+ + + + [...] [place] | | | | | | [address] | | | | | | | | +--------+---------+ + + + | 11/24/ | Office | Cardiology | [place], | | | 2019 | Visit | | SINHDU Erickson [address] | | | | | | [place], | | | | | | [place] [address] | | | | | | [phone] | | | | | | | | +--------+---------+ + + + documented as of this encounter Visit Diagnoses Not on filedocumented in this encounter"
--- OUTSIDE RECORDS SUMMARY | ~2019-02-28 | XMS | Encounter Summary ---
Demographics + + + | Address | [address] | | | [place] [address] | + + + | Home Phone [...] Providers + +------+ + | Care Ceramic Tile Mechanic Name | Role | Phone | [...] | | | | unspecified | | [address] | | | | | laterality | | Phone: | | | | | Primary | | [phone] | | | | | localized | | Fax: | | | | | osteoarthros | | [phone] | | | | | is of hand, | | | | | | | unspecified | | | | | | | laterality | | | | | | | [[id number] | | | | | | | Procedures | | | | | | | SC REPAIR | | | | | | [...] | | | | | [address] | [address] [place] | | | | | [place], [place] | [place] [address] | | | | | [address] | [phone] | | | | | [phone] | | | +--------+ + + + [...] +----+---+ + + | | 1 | [place] | | | | 4 | 43-degrees [...] [address] | | eral | Forearm; yhgq-ebw-oaffag catheter | Teresa Yuan, | Daniela Caro [...] | | | | [facility] [place] | | | | | | [address] | | | | | | | | +--------+---------+ + + + | 11/24/ | Office | Cardiology | [place], | | | 2019 | Visit | | SINDHU Erickson [address] | | | | | | [place], | | | | | | [place] [address] | | | | | | [phone] | | | | | | | [...] | | | | | | Starting [facility] 06/18/18 at 1448, For | | [...] mcg/kg/m | mL/hr | | | Starting [facility] 06/18/18 at 1455, | | PM [...]
--- OUTSIDE RECORDS SUMMARY | ~2019-02-28 | XMS | Encounter Summary ---
Demographics + + + | Address | [address] | | | [place] [address] | + + + | Home Phone [...] Team Providers + +------+ + | Care Board Certified Behavioral Analyst Name | Role | Phone | + +------+ + | Ozzy Delcid MD | PCP | | + +------+ + Encounter Details +--------+ + + + + | Date | Type | Department | Care Team | Description | +--------+ + + + + | 09/28/ | Hospital [facility] | Ozzie Hayes | | | 2011 | Encounter | MED CTR EMERGENCY | MD Ran [address] | | | | | [place] [address] | [address] [place] | | | | | [place], [place] | [place] [address] | | | | | [address] | [phone] | | | | | [phone] | | | +--------+ + + + [...] | | | | | | [place] [address] | | | | | | [phone] | | | | | | | [...] + | [facility] Diagnostic Imaging Department | [facility] | | [address] [facility] | [facility] | | RIGHT FOOT: CLINICAL | DIAG [...] Transcribed Date/Time: 09/29/2011 13:00 | | | Porcelain Enameler: <Electronically Signed by Cesar Singh | | | MD Mikal> 09/29/11 2146 | | + + + + + | Procedure Note | + + | Reed, Rad Conversion - 04/02/2013 5:48 PM [facility] | | Diagnostic Imaging Department [address] [place] [address] | | RIGHT FOOT: CLINICAL HISTORY: Trauma. [...] Cesar Singh | | MD Mikal> 09/29/11 3151 | |other fracture is seen. There is [...] 12:39 | |Transcribed Date/Time: 09/29/2011 13:00 | |Porcelain Enameler: | |<Electronically Signed by Cesar Ren MD> [...]
--- OUTSIDE RECORDS SUMMARY | ~2019-02-28 | XMS | Encounter Summary ---
Demographics + + + | Address | [address] | | | [place] [address] | + + + | Home Phone [...] Providers + +------+ + | Care Aircraft Skin Burnisher Name | Role | Phone | + +------+ + PCP | Unavailable | + +------+ + Encounter Details +--------+ + + + + | Date | Type | Department | Care Team | Description | +--------+ + + + + | 10/18/ | [facility] | [facility] | | | | 2008 - | Encounter | MED CTR OP REHAB | | | | | | [address] [place] | | | | 10/24/ | | [place] [address] | | | | 2008 | | [phone] | | | +--------+ + + + [...] [place] | | | | | | [address] | | | | | | | | +--------+---------+ + + + | 11/24/ | Office | Cardiology | [place], | | | 2020 | Visit | | SINDHU Erickson [address] | | | | | | [place], | | | | | | [place] [address] | | | | | | [phone] | | | | | | | | +--------+---------+ + + + documented as of this encounter Visit Diagnoses Not on filedocumented in this encounter"
--- OUTSIDE RECORDS SUMMARY | ~2019-02-28 | XMS | Encounter Summary ---
Demographics + + + | Address | [address] | | | [place] [address] | + + + | Home Phone [...] Team Providers + +------+ + | Care Personal Injury Specialist Name | Role | Phone | [...] Description | +--------+--------+ + + + | 09/13/ | Refill | [facility] [place] | Kevin Sandoval, | Medication Refill | | 2014 | | PULMONARY [address] | MD [address] | | | | | [place], | [place] | | | | | [place] [address] | [address] | | | | | [phone] | | | +--------+--------+ + + + [...] [place] | | | | | | [address] | | | | | | | | +--------+---------+ + + + | 11/24/ | Office | Cardiology | [place], | | | 2019 | Visit | | SINDHU Erickson [address] | | | | | | [place], | | | | | | [place] [address] | | | | | | [phone] | | | | | | | | +--------+---------+ + + + documented as of this encounter Visit Diagnoses Not on filedocumented in this encounter"
--- OUTSIDE RECORDS SUMMARY | ~2019-02-28 | XMS | Encounter Summary ---
Demographics + + + | Address | [address] | | | [place] [address] | + + + | Home Phone [...] Providers + +------+ + | Care Insurance Follow Up Rep Name | Role | Phone | + [...] | | | | [facility] | [address] | [address] | | | | | EXERCISE | [place], | [place] | | | | | | [place] [address] | [place], [place] | | | | | | Phone: | [address] | | | | | | [phone] | Phone: | | | | | | Fax: | [phone] | | | | | | [phone] | Fax: | | | | | | | [phone] | +--------+--------+ + + + + Encounter Details +--------+---------+ + + + | Date | Type | Department | Care Team | Description | +--------+---------+ + + + | 06/25/ | Office | [facility] | Jared Mcdonough, | Chronic obstructive | | 2017 | Visit | MED CTR CARDIAC | [address] | pulmonary disease, | | | | REHABILITATION [address] [place], | unspecified COPD | | | | [address] [place] | [place] [address] | type (HCC) (Primary | | | | [place] [address] | [phone] | Dx) | | | | [phone] | | | +--------+---------+ + + + [...] of this encounter Progress Nima Plunkett-Tricia Crawley, 8TH GRADE MATHEMATICS TEACHER - 06/25/2016 1:10 PM PDT [facility] [address] [facility] [address] Cardiac Rehab Date: 06/25/2016 Patient Information Patient [...] | | | | | [place] [address] | | | | | | [phone] | | | | | | | | +--------+---------+ + + + documented as of this encounter Visit Diagnoses + + | Diagnosis | + + | Chronic obstructive pulmonary disease, unspecified COPD type (HCC) - Primary | + + documented in this encounter"
--- OUTSIDE RECORDS SUMMARY | ~2019-02-28 | XMS | Encounter Summary ---
Demographics + + + | Address | [address] | | | [place] [address] | + + + | Home Phone [...] Team Providers + +------+ + | Care Architectural Modeler Name | Role | Phone | + +------+ + PCP | Unavailable | + +------+ + Encounter Details +--------+ + + + + | Date | Type | Department | Care Team | Description | +--------+ + + + + | 11/01/ | [facility] | [facility] | | | | 2008 | Encounter | MED CTR XRAY [address] | | | | | | [place] | | | | | | [place] [address] | | | | | | [phone] | | | +--------+ + + + [...] [place] | | | | | | [address] | | | | | | | | +--------+---------+ + + + | 11/24/ | Office | Cardiology | [place], | | | 2020 | Visit | | SINDHU Erickson [address] | | | | | | [place], | | | | | | [place] [address] | | | | | | [phone] | | | | | | | | +--------+---------+ + + + documented as of this encounter Visit Diagnoses Not on filedocumented in this encounter"
--- OUTSIDE RECORDS SUMMARY | ~2019-02-28 | XMS | Encounter Summary ---
Demographics + + + | Address | [address] | | | [place] [address] | + + + | Home Phone [...] Providers + +------+ + | Care Cisco Unified Communications Engineer Name | Role | Phone | [...] + + | 11/11/ | Telephone | [facility] | Shashi Segovia | Results | | 2013 | | NEUROLOGY ADRIANA | MD Miryam Need updated | | | | | [address], | address | | | | | [address] [place] | | | | | | [place] [address] | | | | | | [phone] | | | +--------+ + + + [...] [place] | | | | | | [address] | | | | | | | | +--------+---------+ + + + | 11/24/ | Office | Cardiology | [place], | | | 2019 | Visit | | SINDHU Erickson [address] | | | | | | [place], | | | | | | [place] [address] | | | | | | [phone] | | | | | | | | +--------+---------+ + + + documented as of this encounter Visit Diagnoses Not on filedocumented in this encounter"
--- OUTSIDE RECORDS SUMMARY | ~2019-02-28 | XMS | Encounter Summary ---
Demographics + + + | Address | [address] | | | [place] [address] | + + + | Home Phone [...] Team Providers + +------+ + | Care Duct Maker Name | Role | Phone | [...] | | | | [facility] | [address] | [address] | | | | | EXERCISE | [place], | [place] | | | | | | [place] [address] | [place], [place] | | | | | | Phone: | [address] | | | | | | [phone] | Phone: | | | | | | Fax: | [phone] | | | | | | [phone] | Fax: | | | | | | | [phone] | +--------+--------+ + + + + Encounter Details +--------+---------+ + + + | Date | Type | Department | Care Team | Description | +--------+---------+ + + + | 08/20/ | Office | [facility] | Jared Mcdonough, | Chronic obstructive | | 2017 | Visit | MED CTR CARDIAC | [address] | pulmonary disease, | | | | REHABILITATION [address] | [address] [place], | unspecified COPD | | | | [address] [place] | [place] [address] | type (HCC) (Primary | | | | [place] [address] | [phone] | Dx) | | | | [phone] | | | +--------+---------+ + + + [...] [place] | | | | | | [address] | | | | | | | | +--------+---------+ + + + | 11/24/ | Office | Cardiology | [place], | | | 2019 | Visit | | SINDHU Erickson [address] | | | | | | [place], | | | | | | [place] [address] | | | | | | [phone] | | | | | | | | +--------+---------+ + + + documented as of this encounter Visit Diagnoses + + | Diagnosis | + + | Chronic obstructive pulmonary disease, unspecified COPD type (HCC) - Primary | + + documented in this encounter"
--- OUTSIDE RECORDS SUMMARY | ~2019-02-28 | XMS | Encounter Summary ---
Demographics + + + | Address | [address] | | | [place] [address] | + + + | Home Phone [...] Team Providers + +------+ + | Care Blueprint Reader Name | Role | Phone | + [...] | | CARDIOLOGY [address] | Georgina, EAP SPECIALIST [address] | tachycardia (HCC); | | | | [place], | [place], | Encounter for lipid | | | | [place] [address] | [place] [address] | screening for | | | | [phone] | [phone] | cardiovascular | | | | | [...] [place] | | | | | | [address] | | | | | | | | +--------+---------+ + + + | 11/24/ | Office | Cardiology | [place], | | | 2019 | Visit | | SINDHU Erickson [address] | | | | | | [place], | | | | | | [place] [address] | | | | | | [phone] | | | | | | | | +--------+---------+ + + + documented as of this encounter Visit Diagnoses + + | Diagnosis | + + | Paroxysmal atrial tachycardia (HCC) Paroxysmal supraventricular tachycardia | + + | Encounter for lipid screening for cardiovascular disease | + + documented in this encounter"
--- OUTSIDE RECORDS SUMMARY | ~2019-02-28 | XMS | Encounter Summary ---
Demographics + + + | Address | [address] | | | [place] [address] | + + + | Home Phone [...] Providers + +------+ + | Care Dye Feeder Name | Role | Phone | + +------+ + PCP | Unavailable | + +------+ + Encounter Details +--------+ + + + + | Date | Type | Department | Care Team | Description | +--------+ + + + + | 07/26/ | Hospital | [facility] | Elda Miranda | | | 2010 | Encounter | MED CTR LABORATORY | MD H[address] | | | | | [address] [place] | [address] [place] | | | | | [place], [place] | [place] [address] | | | | | [address] | [phone] | | | | | [phone] | | | +--------+ + + + [...] [place] | | | | | | [address] | | | | | | | | +--------+---------+ + + + | 11/24/ | Office | Cardiology | [place], | | | 2019 | Visit | | SINDHU Erickson [address] | | | | | | [place], | | | | | | [place] [address] | | | | | | [phone] | | | | | | | | +--------+---------+ + + + documented as of this encounter Procedures + +--------+ + + + | Procedure Name | Priori | Date/Time | Associated Diagnosis | Comments | | | ty | | | | + +--------+ + + + | UA, MICROSCOPIC, | Routin | 07/26/2010 | | Results [...] + + + | WBC UA | 5-10 | 0 - 1 /hpf [...] + + + | BACTERIA UA | RARE | NONE /hpf | [facility] | | | | [facility] | | [facility] | [facility] | | | | | | [facility] - | | | | | | LABORATORY | | + + + + + + | AMORPHOUS | SLIGHT | /hpf | [facility] | | | [facility] | | | [facility] | | | | | | [facility]ICAL | | | | | | CENTER - | | | | | | LABORATORY | | + + + + + + | Culture | YESComment: REFLEXED TO | | [facility] | | | Indicated | URINE CULTURE. | | [facility] | | | [...] + | [facility] | [address] | [place], [place] | [phone] | | [facility] | | [address] | | | - LABORATORY | | | | + + + + + | [facility] | [address] | [place], [place] | | | [facility] | | [address] | | | - LABORATORY | | [...] - 1.030 | [facility] | | | [place] | | | [facility] | | [...] ST. | [address] | [place], [place] | [phone] | | [facility] | | [address] | | | - LABORATORY | | | | + + + + + | [facility] | [address] | [place] | | | [facility] | | [address] | | | - LABORATORY | | | | + + + + + documented in this encounter Visit Diagnoses Not on filedocumented in this encounter"
--- OUTSIDE RECORDS SUMMARY | ~2019-02-28 | XMS | Encounter Summary ---
Demographics + + + | Address | [address] | | | [place] [address] | + + + | Home Phone [...] Team Providers + +------+ + | Care Dairy Feed Sales Consultant Name | Role | Phone | + +------+ + | Ozzy Delcid MD | PCP | | + +------+ + Encounter Details +--------+ + + + + | Date | Type | Department | Care Team | Description | +--------+ + + + + | 03/29/ | Hospital | [facility] | | | | 2011 | Encounter | MED CTR LABORATORY | | | | | | [address] [place] | | | | | | [place] | | | | | | [address] | | | | | | [phone] | | | +--------+ + + + [...] | [facility] [place] | | | | | | [address] | | | | | | | | +--------+---------+ + + + | 11/24/ | Office | Cardiology | [place], | | | 2019 | Visit | | SINDHU Erickson [address] | | | | | | [place], | | | | | | [place] [address] | | | | | | [phone] | | | | | | | [...] | [facility] | | | | [facility] | | MEDICAL | | | [...] + | [facility] | [address] | [place], [place] | [phone] | | [facility] | | [address] | | | - LABORATORY | | | | + + + + + | [facility] | [address] | [place], [place] | | | [facility] | | [address] | | | - LABORATORY | | | | + + + + + Prolactin (03/29/2011 10:02 AM PST) + + + + + + | Component | Value | Ref Range | Performed | Pathologist | | | | | At | Signature | + + + + + + | Prolactin | 75.1 (H)Comment: | 1.4 - 24.2 | [facility] | | | | Reference range applies | ng/mL | [facility] | | | | only to non | | MEDICAL | | | | females. Testing | | CENTER - | | | | Performed: [place], [address] | | LABORATORY | | | | [address], [place] | | | | | | [address] CLIA: [id number] | | | | | | | | | | + + + + + + + + | Specimen | + + | | + + + + + + + | Performing | Address | City/State/Zipcode | Phone Number | | Organization | | | | + + + + + | [facility] | [address] | [place], [place] | [phone] | | [facility] | | [address] | | | - LABORATORY | | | | + + + + + | [facility] | [address] | [place], [place] | | | [facility] | | [address] | | | - LABORATORY | | | | + + + + + TSH (03/29/2011 10:02 AM PST) + + + + + + | Component | Value | Ref Range | Performed | Pathologist | | | | | At | Signature | + + + + + + | TSH | 0.23 (L)Comment: Testing | 0.34 - 5.60 | [facility] | | | | performed on the | uIU/mL | [facility] | | | | [facility] | | MEDICAL | | | [...] + | [facility] | [address] | [place] | [phone] | | [facility] | | [address] | | | - LABORATORY | | | | + + + + + | [facility] | [address] | [place] | | | [facility] | | [address] | | | - LABORATORY | | [...] | | | Thyroxine | | | [facility] | | | Index | | | [...] + | [facility] | [address] | [place] | [phone] | | [facility] | | [address] | | | - LABORATORY | | | | + + + + + | [facility] | [address] | [place], [place] | | | [facility] | | [address] | | | - LABORATORY | | [...] Testing | 4.7 - 9.8 ug/dL | [facility] | | | | performed on the [place] | | [facility] | | | | [facility] | | MEDICAL | | | [...] + | [facility] | [address] | [place] | [phone] | | [facility] | | [address] | | | - LABORATORY | | | | + + + + + | [facility] | [address] | [place] | | | [facility] | | [address] | | | - LABORATORY | | | | + + + + + documented in this encounter Visit Diagnoses Not on filedocumented in this encounter"
--- OUTSIDE RECORDS SUMMARY | ~2019-02-28 | XMS | Encounter Summary ---
Demographics + + + | Address | [address] | | | [place] [address] | + + + | Home Phone [...] Team Providers + +------+ + | Care Single Needle Operator Name | Role | Phone | + +------+ + | Juan Cherry DO | PCP | | + +------+ + Encounter Details +--------+ + + + + | Date | Type | Department | Care Team | Description | +--------+ + + + + | 09/20/ | Orders Only | [facility] | Provider, | | | 2018 | | SYSTEM GENERIC OP | MD [address] | | | | | CONVERSION [address] | [place]. | | | | | [address] [place], [place] | [place] [address] | | | | | [address] | | | | | | [phone] | | | +--------+ + + + [...] [place] | | | | | | [address] | | | | | | | | +--------+---------+ + + + | 11/24/ | Office | Cardiology | [place], | | | 2020 | Visit | | SINDHU Erickson [address] | | | | | | [place], | | | | | | [place] [address] | | | | | | [phone] | | | | | | | | +--------+---------+ + + + documented as of this encounter Visit Diagnoses Not on filedocumented in this encounter"
--- OUTSIDE RECORDS SUMMARY | ~2019-02-28 | XMS | Encounter Summary ---
Demographics + + + | Address | [address] | | | [place] [address] | + + + | Home Phone [...] Providers + +------+ + | Care Bit Bender Name | Role | Phone | + +------+ + PCP | Unavailable | + +------+ + Encounter Details +--------+ + + + + | Date | Type | Department | Care Team | Description | +--------+ + + + + | 01/24/ | Hospital | [facility] | Avi Guru Garzon, | | | 2009 | Encounter | MED CTR EMERGENCY | MD [address] | | | | | CENTER [address] | [facility] [place] | | | | | [place], [place] | [place] [address] | | | | | [address] | [phone] | | | | | [phone] | | | +--------+ + + + [...] [place] | | | | | | [address] | | | | | | | | +--------+---------+ + + + | 11/24/ | Office | Cardiology | [place], | | | 2020 | Visit | | SINDHU Erickson [address] | | | | | | [place], | | | | | | [place] [address] | | | | | | [phone] | | | | | | | | +--------+---------+ + + + documented as of this encounter Visit Diagnoses Not on filedocumented in this encounter"
--- OUTSIDE RECORDS SUMMARY | ~2019-02-28 | XMS | Encounter Summary ---
Demographics + + + | Address | [address] | | | [place] [address] | + + + | Home Phone [...] Team Providers + +------+ + | Care Green Building Engineer Name | Role | Phone | + +------+ + | Juan Cherry DO | PCP | | + +------+ + Encounter Details +--------+ + + + + | Date | Type | Department | Care Team | Description | +--------+ + + + + | 06/18/ | Hospital | [facility] | Kevin Sandoval, | COPD (chronic | | 2013 | Encounter | MED CTR XRAY [address] | MD [address] | obstructive | | | | [place] | [place] | pulmonary disease) | | | | [place] [address] | [address] | | | | | [phone] | | | +--------+ + + + [...] | | | | | order to [facility]. | | | | | + [...] | | | | send order to [facility] | | | | | | | [facility]. | | | | | | [...] [place] | | | | | | [address] | | | | | | | | +--------+---------+ + + + | 11/24/ | Office | Cardiology | [place], | | | 2019 | Visit | | SINDUH Erickson [address] | | | | | | [place], | | | | | | [place] [address] | | | | | | [phone] | | | | | | | [...] + | MISCELLANEOUS LAB | | | [phone] | + +---------+ + + | MISCELANIOUS LAB | | | [phone] | + +---------+ + + documented in this encounter Visit Diagnoses + + | Diagnosis | + + | COPD (chronic obstructive pulmonary disease) Chronic airway obstruction, not | | elsewhere classified | + + documented in this encounter"
--- OUTSIDE RECORDS SUMMARY | ~2019-02-28 | XMS | Encounter Summary ---
Demographics + + + | Address | [address] | | | [place] [address] | + + + | Home Phone [...] Providers + +------+ + | Care Collision Estimator Name | Role | Phone | [...] | with brief | [address] | [address] | | | | n | loss of | [address] | [place], | | | | | consciousnes | [place], | [place] [address] | | | | | s | [place] [address] | Phone: | | | | | Post-concuss | Phone: | [phone] | | | | | ion vertigo | [phone] | Fax: | | | | | [phone] | Fax: | [phone] | | | | | (ICD-10-CM) | [phone] | | | | | | - [...] + + | 06/05/ | Office | [facility] | Aaron Rodriguez, | Dizziness (Primary | | 2017 | Visit | MED CTR THERAPY PT | MD [address] | Dx); Impaired | | | | OP [address] | [place] | mobility and | | | | [place] | [id number] | activities of daily | | | | [address] | | living; Concussion | | | | [phone] | Lakeshia Cleary, PT | with brief (less | | | | | [address] | than one hour) loss | | | | | [place] | of consciousness; | | | | | [address] | Intractable acute | | | | [...] might be different from t he original. [facility] THERAPY PT OP [address] [place] [address] Physical Therapy Daily Treatment Note Date: 06/05/2016 [...] Rehab Precautions Office Visit from 05/01/2016 in [facility] CTR THERAPY PT OP Rehab Precautions [...] [place] | | | | | | [address] | | | | | | | | +--------+---------+ + + + | 11/24/ | Office | Cardiology | [place], | | | 2020 | Visit | | SINDHU Erickson [address] | | | | | | [place], | | | | | | [place] [address] | | | | | | [phone] | | | | | | | [...]
--- OUTSIDE RECORDS SUMMARY | ~2019-02-28 | XMS | Encounter Summary ---
Demographics + + + | Address | [address] | | | [place] [address] | + + + | Home Phone [...] Team Providers + +------+ + | Care Inorganic Chemistry Teacher Name | Role | Phone | [...] | | | | | pulmonary | [address] | n [address] | | | | | disease, | [place], | [place] | | | | | unspecified | [place] [address] | [place], [place] | | | | | COPD type | Phone: | [address] | | | | | (HCC) | [phone] | Phone: | | | | | Pulmonary | Fax: | [phone] | | | | | emphysema, | [phone] | Fax: | | | | | unspecified | | [phone] | | | | | emphysema | | | | | | | type ([facility]) | | | +--------+ + + + + + Encounter Details +--------+ + + + + | Date | Type | Department | Care Team | Description | +--------+ + + + + | 04/03/ | Orders Only | [facility] [place] | JamaledgardoJared, | Chronic obstructive | | 2017 | | CARDIOLOGY [address] | [address] [place] | pulmonary disease, | | | | [place], | [place], | unspecified COPD | | | | [place] [address] | [place] [address] | type (HCC) (Primary | | | | [phone] | [phone] | Dx); Pulmonary | | | | [...] [place] | | | | | | [address] | | | | | | | | +--------+---------+ + + + | 11/24/ | Office | Cardiology | [place], | | | 2019 | Visit | | SINDHU Erickson [address] | | | | | | [place], | | | | | | [place] [address] | | | | | | [phone] | | | | | | | [...]
--- OUTSIDE RECORDS SUMMARY | ~2019-02-28 | XMS | Encounter Summary ---
Demographics + + + | Address | [address] | | | [place] [address] | + + + | Home Phone [...] Providers + +------+ + | Care Psychiatric Np Name | Role | Phone | + [...] | (Primary Dx); | | | | [place] [address] | | Central sleep apnea; | | | | [phone] | | Insomnia | +--------+---------+ + + [...] [place] | | | | | | [address] | | | | | | | | +--------+---------+ + + + | 11/24/ | Office | Cardiology | [place], | | | 2019 | Visit | | SINDHU Erickson [address] | | | | | | [place], | | | | | | [place] [address] | | | | | | [phone] | | | | | | | [...]
--- OUTSIDE RECORDS SUMMARY | ~2019-02-28 | XMS | Encounter Summary ---
Demographics + + + | Address | [address] | | | [place] [address] | + + + | Home Phone [...] Team Providers + +------+ + | Care Regional Medical Director Name | Role | Phone | + +------+ + | Juan Cherry DO | PCP | | + +------+ + Encounter Details +--------+ + + + + | Date | Type | Department | Care Team | Description | +--------+ + + + + | 09/21/ | Orders Only | [facility] [place] | Nilda Escalona, | | | 2018 | | CARDIOLOGY [address] | RN | | | | | [place], | | | | | | [place] [address] | | | | | | [phone] | | | +--------+ + + + [...] [place] | | | | | | [address] | | | | | | | | +--------+---------+ + + + | 11/24/ | Office | Cardiology | [place], | | | 2020 | Visit | | SINDHU Erickson [address] | | | | | | [place], | | | | | | [place] [address] | | | | | | [phone] | | | | | | | | +--------+---------+ + + + documented as of this encounter Visit Diagnoses Not on filedocumented in this encounter"
--- OUTSIDE RECORDS SUMMARY | ~2019-02-28 | XMS | Encounter Summary ---
Demographics + + + | Address | [address] | | | [place] [address] | + + + | Home Phone [...] Team Providers + +------+ + | Care Numerical Control Tool Programmer Name | Role | Phone | [...] | | | Clinic | [place] | | | | | | [address] | | | | | | | [...] [place] | | | | | | [address] | | | | | | | | +--------+---------+ + + + | 11/24/ | Office | Cardiology | [place], | | | 2019 | Visit | | SINDHU Erickson [address] | | | | | | [place], | | | | | | [place] [address] | | | | | | [phone] | | | | | | | | +--------+---------+ + + + documented as of this encounter Visit Diagnoses Not on filedocumented in this encounter"
--- OUTSIDE RECORDS SUMMARY | ~2019-02-28 | XMS | Encounter Summary ---
Demographics + + + | Address | [address] | | | [place] [address] | + + + | Home Phone [...] Team Providers + +------+ + | Care Teacher Of Gifted Students Name | Role | Phone | + +------+ + | Ozzy Delcid MD | PCP | | + +------+ + Encounter Details +--------+ + + + + | Date | Type | Department | Care Team | Description | +--------+ + + + + | 03/29/ | Hospital | [facility] | | | | 2011 | Encounter | [facility] LAB[facility]ORY | | | | | | [address] | | | | | | [place] | | | | | | [address] | | | | | | [phone] | | | +--------+ + + + [...] | | Jose R Snow [facility] [place] | | | | | | [address] | | | | | | | | +--------+---------+ + + + | 11/24/ | Office | Cardiology | [place], | | | 2019 | Visit | | SINDHU Erickson [address] | | | | | | [address] [place], | | | | | | [place] [address] | | | | | | [phone] | | | | | | | [...] + | [facility] | [address] | [place], [place] | [phone] | | [facility] | | [address] | | | - LABORATORY | | | | + + + + + | [facility] | [address] | [place], [place] | | | [facility] | | [address] | | | - LABORATORY | | [...] [place] | | | | | | [address] CLIA: [id number] | | | | | | | | | | + + + + + + + + | Specimen | + + | | + + + + + + + | Performing | Address | City/State/Zipcode | Phone Number | | Organization | | | | + + + + + | [facility] | [address] | [place], [place] | [phone] | | [facility] | | [address] | | | - LABORATORY | | | | + + + + + | [facility] | [address] | [place], [place] | | | [facility] | | [address] | | | - LABORATORY | | [...] | performed on the | uIU/mL | [facility] | | | | Blake De Access [...] + | [facility] | [address] | [place] | [phone] | | [facility] | | [address] | | | - LABORATORY | | | | + + + + + | [facility] | [address] | [place] | | | [facility] | | [address] | | | - LABORATORY | | [...] + | [facility] | [address] | [place] | [phone] | | [facility] | | [address] | | | - LABORATORY | | | | + + + + + | [facility] | [address] | [place], [place] | | | [facility] | | [address] | | | - LABORATORY | | [...] + | [facility] | [address] | [place] | [phone] | | [facility] | | [address] | | | - LABORATORY | | | | + + + + + | [facility] | [address] | [place] | | | [facility] | | [address] | | | - LABORATORY | | | | + + + + + documented in this encounter Visit Diagnoses Not on filedocumented in this encounter"
--- OUTSIDE RECORDS SUMMARY | ~2019-02-28 | XMS | Encounter Summary ---
Demographics + + + | Address | [address] | | | [place] [address] | + + + | Home Phone [...] + | 09/16/ | Telephone | [facility] | Kevin Sandoval, | Appointment | | 2014 | | PULMONARY [address] | MD [address] | ([place]ANCELLING | | | | [facility], | [place] | APPOINTMENT) | | | | [place] [address] | [address] | | | | | [phone] | | | +--------+ + + + [...] | | | | | | [place] [address] | | | | | | [phone] | | | | | | | | +--------+---------+ + + + documented as of this encounter Visit Diagnoses Not on filedocumented in this encounter"
--- OUTSIDE RECORDS SUMMARY | ~2019-02-28 | XMS | Encounter Summary ---
Demographics + + + | Address | [address] | | | [place] [address] | + + + | Home Phone [...] Team Providers + +------+ + | Care Engineer Operations And Maintenance Name | Role | Phone | + +------+ + PCP | Unavailable | + +------+ + Encounter Details +--------+ + + + + | Date | Type | Department | Care Team | Description | +--------+ + + + + | 07/31/ | Hospital | [facility] | Abigail Ozzie | | | 2010 | Encounter | MED CTR EMERGENCY | MD Ran [address] | | | | | SELENE [address] | [address] [facility] | | | | | [place], [place] | [place] [address] | | | | | [address] | [phone] | | | | | [phone] | | | +--------+ + + + [...] [place] | | | | | | [address] | | | | | | | | +--------+---------+ + + + | 11/24/ | Office | Cardiology | [place], | | | 2019 | Visit | | SINDHU Erickson [address] | | | | | | [place], | | | | | | [place] [address] | | | | | | [phone] | | | | | | | [...] - 1.030 | [facility] | | | [place] | | | [facility] | | [...] | [facility] | [address] | [place] | [phone] | | [facility] | | [address] | | | - LABORATORY | | | | + + + + + | [facility] | [address] | [place] | | | [facility] | | [address] | | | - LABORATORY | | [...] | [facility] | [address] | [place] | [phone] | | [facility] | | [address] | | | - LABORATORY | | | | + + + + + | [facility] | [address] | [place], [place] | | | [facility] | | [address] | | | - LABORATORY | | [...] | | | | | | [facility] | | | | | [...] | [facility] | [address] | [place], [place] | [phone] | | [facility] | | [address] | | | - LABORATORY | | | | + + + + + | [facility] | [address] | [place], [place] | | | [facility] | | [address] | | | - LABORATORY | | [...] + | [facility] | [address] | [place], [place] | [phone] | | [facility] | | [address] | | | - LABORATORY | | | | + + + + + | [facility] | [address] | [place], [place] | | | [facility] | | [address] | | | - LABORATORY | | | | + + + + + CT Abdomen Pelvis w Contrast (07/31/2010 2:22 AM PDT) + + | Specimen | + + | | + + + + + | Narrative | Performed At | + + + | [facility] Diagnostic Imaging Department | [facility] | | [address] [facility] | [facility] | | CT ABDOMEN AND PELVIS WITH [...] Transcribed Date/Time: 07/31/2010 | | | 10:29 Melter Clerk: <Electronically Signed by Lencho Reynolds | | | MD Shira> 07/31/10 1718 | | + + + + + | Procedure Note | + + | Roger Mcbride Conversion - 04/02/2013 3:05 PM [facility] | | Diagnostic Imaging Department [address] [facility] | | CT ABDOMEN AND PELVIS [...] 08:28 | |Transcribed Date/Time: 07/31/2010 10:29 | |Melter Clerk: | |<Electronically Signed by Lencho Silva [...]
--- OUTSIDE RECORDS SUMMARY | ~2019-02-28 | XMS | Encounter Summary ---
Demographics + + + | Address | [address] | | | [place] [address] | + + + | Home Phone [...] Providers + +------+ + | Care Gear Shaper Name | Role | Phone | + +------+ + | Juan Cherry DO | PCP | | + +------+ + Encounter Details +--------+ + + + + | Date | Type | Department | Care Team | Description | +--------+ + + + + | 02/28/ | Hospital | [facility] | Jared Mcdonough, | Other chest pain | | 2015 | Encounter | MED CTR CV INTRA OP | MD [address] | | | | | [address] | [place], | | | | | [place], [place] | [place] [address] | | | | | [address] | [phone] | | | | | [phone] | | | +--------+ + + + [...] [place] | | | | | | [address] | | | | | | | | +--------+---------+ + + + | 11/24/ | Office | Cardiology | [place], | | | 2019 | Visit | | SINDHU Erickson [address] | | | | | | [place], | | | | | | [place] [address] | | | | | | [phone] | | | | | | | [...] + +--------+ + + + | [facility] IN[facility] | Routin | 02/28/2014 | | [...] RECORD NUMBER: | MEDICAL CENTER | | [id number] DATE OF PROCEDURE: 02/28/2014 CASH SALES AUDIT CLERK: | - IMAGING | | Jared Mcdonough [...] Malik, (1965) OF | | PROCEDURE: 02/28/2014PRIMARY DEPUTY ASSESSOR: Jared Mcdonough MD PROCEDURES | | PERFORMED:Coronary [...] [address] | [place] | [phone] | | [facility] | | [address] | | | - IMAGING | | [...] | 0.94 | 0.60 - 1.30 | [facility] | | | | | mg/dL | [facility] | | | | | | MEDICAL | | | | | | CENTER - | | | | | | LABORATORY | | + + + + + + | eGFR if not | >60Comment: GLOMERULAR | >=60 | [facility] | | | | FILTRATION | mL/min/1.73m2 | [facility] | | | [place] | RATE,ESTIMATED | | MEDICAL | | | | mL/min/1.65e7Hbxs than | | CENTER - | | [...] + | [facility] | [address] | [place], [place] | [phone] | | [facility] | | [address] | | | - LABORATORY | | | | + + + + + | [facility] | [address] | [place], [place] | | | [facility] | | [address] | | | - LABORATORY | | [...] documented in this encounter Administered Medications + +---------+ [...]
--- OUTSIDE RECORDS SUMMARY | ~2019-02-28 | XMS | Encounter Summary ---
Demographics + + + | Address | [address] | | | [place] [address] | + + + | Home Phone [...] Team Providers + +------+ + | Care Telegraphic Typewriter Operator Name | Role | Phone | [...] + + | 03/28/ | Refill | [facility] | Andriy Weber | Medication Refill | | 2017 | | [address] | [address] | | | | | [place] | [facility] | | | | | [address] | [place] [address] | | | | | [phone] | [phone] | | | | | | | [...] [place] | | | | | | [address] | | | | | | | | +--------+---------+ + + + | 11/24/ | Office | Cardiology | [place], | | | 2019 | Visit | | SINDHU Erickson [address] | | | | | | [place], | | | | | | [place] [address] | | | | | | [phone] | | | | | | | | +--------+---------+ + + + documented as of this encounter Visit Diagnoses Not on filedocumented in this encounter"
--- OUTSIDE RECORDS SUMMARY | ~2019-02-28 | XMS | Encounter Summary ---
Demographics + + + | Address | [address] | | | [place] [address] | + + + | Home Phone [...] Team Providers + +------+ + | Care Punch Press Operator Name | Role | Phone | + +------+ + | Juan Cherry DO | PCP | | + +------+ + Encounter Details +--------+ + + + + | Date | Type | Department | Care Team | Description | +--------+ + + + + | 09/09/ | Hospital | [facility] | Conversion | Pain | | 2015 | Encounter | CONVERSION [address] | Transaction, | | | | | [address] | Provider Unknown | | | | | [place], [place] | [phone] | | | | | [address] | | | | | | [phone] | | | +--------+ + + + [...] | | | order to [facility]. | | | | | [...] | | | ([facility]) | | | | | | + [...] | | | | [place] | | | | | | [id number] | | | | | | | | +--------+---------+ + + + | 11/24/ | Office | Cardiology | [place], | | | 2019 | Visit | | SINDHU Erickson [address] | | | | | | [place], | | | | | | [place] [address] | | | | | | [phone] | | | | | | | [...]
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
--- OUTSIDE RECORDS SUMMARY | ~2019-02-28 | XMS | Encounter Summary ---
Demographics + + + | Address | [address] | | | [place] [address] | + + + | Home Phone [...] Team Providers + +------+ + | Care Premix Operator Concentrate Name | Role | Phone | + [...] | PULMONARY [address] | RN | ([facility]); COPD (chronic | | | | [place], | | obstructive | | | | [place] [address] | | pulmonary disease) | | | | [phone] | | ([facility]) | +--------+ + + + + [...] | | | | | [facility] | | | | | | [address] | | | | | | | | +--------+---------+ + + + | 11/24/ | Office | Cardiology | [place], | | | 2019 | Visit | | SINDHU Erickson [address] | | | | | | [place], | | | | | | [place] [address] | | | | | | [phone] | | | | | | | [...]
--- OUTSIDE RECORDS SUMMARY | ~2019-02-28 | XMS | Encounter Summary ---
Demographics + + + | Address | [address] | | | [place] [address] | + + + | Home Phone [...] Team Providers + +------+ + | Care Reading Instructor Name | Role | Phone | + +------+ + | Juan Cherry DO | PCP | | + +------+ + Encounter Details +--------+ + + + + | Date | Type | Department | Care Team | Description | +--------+ + + + + | 12/17/ | Hospital | [facility] | Shashi Segovia | Therapeutic drug | | 2013 | Encounter | MED CTR LABORATORY | MD Miryam Need updated | monitoring | | | | [address] | address | | | | | [place] | | | | | | [address] | | | | | | [phone] | | | +--------+ + + + [...] | | | | | | [facility]. | | | | | | [...] [place] | | | | | | [address] | | | | | | | | +--------+---------+ + + + | 11/24/ | Office | Cardiology | [place], | | | 2019 | Visit | | SINDHU Erickson [address] | | | | | | [place], | | | | | | [place] [address] | | | | | | [phone] | | | | | | | [...] mL/min/1.73m2 | [facility] | | | [place] | | | MEDICAL | | | | | | CENTER - | | | | | | LABORATORY | | + +-------+ + + + + + | Specimen | + + | Blood | + + + + + + + | Performing | Address | City/State/[facility] | Phone Number | | Organization | | | | + + + + + | [facility] | [address] | [place] | [phone] | | [facility] | | [address] | | | - LABORATORY | | | | + + + + + | [facility] | [address] | [place] | | | [facility] | | [address] | | | - LABORATORY | | [...] + | [facility] | [address] | [place], [place] | [phone] | | [facility] | | [address] | | | - LABORATORY | | | | + + + + + | [facility] | [address] | [place], [place] | | | [facility] | | [address] | | | - LABORATORY | | | | + + + + + documented in this encounter Visit Diagnoses + + | Diagnosis | + + | Therapeutic drug monitoring Encounter for therapeutic drug monitoring | + + documented in this encounter"
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
--- OUTSIDE RECORDS SUMMARY | ~2019-02-28 | XMS | Encounter Summary ---
Demographics + + + | Address | [address] | | | [place] [address] | + + + | Home Phone [...] Providers + +------+ + | Care Press Tender Name | Role | Phone | + +------+ + | Juan Cherry DO | PCP | | + +------+ + Encounter Details +--------+ + + + + | Date | Type | Department | Care Team | Description | +--------+ + + + + | 09/09/ | Hospital | [facility] | Conversion | Pain | | 2015 | Encounter | CONVERSION [address] | Transaction, | | | | | [address] | Provider Unknown | | | | | [place], [place] | [phone] | | | | | [address] | | | | | | [phone] | | | +--------+ + + + [...] | | | | Jose R Snow [place] | | | | | | [address] | | | | | | | | +--------+---------+ + + + | 11/24/ | Office | Cardiology | Flores, | | | 2019 | Visit | | SINDHU Erickson [address] | | | | | | [place], | | | | | | [place] [address] | | | | | | [phone] | | | | | | | [...]
--- OUTSIDE RECORDS SUMMARY | ~2019-02-28 | XMS | Encounter Summary ---
Demographics + + + | Address | [address] | | | [place] [address] | + + + | Home Phone [...] Providers + +------+ + | Care Stock Layer Name | Role | Phone | + [...] + + | 10/16/ | Hospital | [facility] | [place], | Paroxysmal atrial | | 2017 | Encounter | MED CTR NUCLEAR | SINDHU Erickson [address] | tachycardia (HCC); | | | | MEDICINE [address] | [place], | Palpitations | | | | [place], | [place] [address] | | | | | [place] [address] | [phone] | | | | | [phone] | | | +--------+ + + + [...] | | | order to [facility]. | | | | | [...] | | | | | | | [facility]. | | | | | [...] [place] | | | | | | [id number] | | | | | | | | +--------+---------+ + + + | 11/24/ | Office | Cardiology | Flores, | | | 2019 | Visit | | SINDHU Erickson [address] | | | | | | [place], | | | | | | [place] [address] | | | | | | [phone] | | | | | | | [...] Juan | | | DO CAMILLE Cherry MANAGEMENT PSYCHOLOGIST: Jared Mcdonough MD | | | 48-HOUR [...] | | Signed by: Jared Mcdonough MD [facility] 10/18/2016, | | | 10:51 | [...]
--- OUTSIDE RECORDS SUMMARY | ~2019-02-28 | XMS | Encounter Summary ---
Demographics + + + | Address | [address] | | | [place] [address] | + + + | Home Phone [...] Team Providers + +------+ + | Care Testing Tech Name | Role | Phone | [...] | | | | unspecified | | [address] | | | | | laterality | | Phone: | | | | | Primary | | [phone] | | | | | localized | | Fax: | | | | | osteoarthros | | [phone] | | | | | is of [...] | | | | | [address] | [address] [place] | | | | | [place], [place] | [place] [address] | | | | | [address] | [phone] | | | | | [phone] | | | +--------+ + + + [...] +----+---+ + + | | 1 | [place] | | | | 4 | 43-degrees [...] [address] | | eral | Forearm; lvjt-pnh-tjbjaj catheter | Teresa Yuan, | Daniela Caro [...] [facility] [place] [place] | | | | | | [address] | | | | | | | | +--------+---------+ + + + | 11/24/ | Office | Cardiology | Flores, | | | 2019 | Visit | | SINDHU Erickson [address] | | | | | | [place], | | | | | | [place] [address] | | | | | | [phone] | | | | | | | [...] | | | | | | Starting [facility] 06/18/18 at 1448, For | | [...] mcg/kg/m | mL/hr | | | Starting [facility] 06/18/18 at 1455, | | PM [...]
--- OUTSIDE RECORDS SUMMARY | ~2019-02-28 | XMS | Encounter Summary ---
Demographics + + + | Address | [address] | | | [place] [address] | + + + | Home Phone [...] Providers + +------+ + | Care Animal Husbandry Manager Name | Role | Phone | + +------+ + PCP | Unavailable | + +------+ + Encounter Details +--------+ + + + + | Date | Type | Department | Care Team | Description | +--------+ + + + + | 06/09/ | Hospital | [facility] | Friedens, | | | 2009 | Encounter | MED CTR EMERGENCY | Ozzy Kim MD [address] | | | | | [place] [address] [place] | [address] [facility] | | | | | [place], [place] | [place] [address] | | | | | [address] | [phone] | | | | | [phone] | | | +--------+ + + + [...] [place] | | | | | | [id number] | | | | | | | | +--------+---------+ + + + | 11/24/ | Office | Cardiology | Flores, | | | 2019 | Visit | | SINDHU Erickson [address] | | | | | | [place] | | | | | | [place] [address] | | | | | | [phone] | | | | | | | | +--------+---------+ + + + documented as of this encounter Visit Diagnoses Not on filedocumented in this encounter"
--- OUTSIDE RECORDS SUMMARY | ~2019-02-28 | XMS | Encounter Summary ---
Demographics + + + | Address | [address] | | | [place] [address] | + + + | Home Phone [...] Providers + +------+ + | Care Head Bellhop Captain Name | Role | Phone | [...] | | | | | [place] | THOM [facility] | | | | | [address] | [place] [address] | | | | | [phone] | [phone] | | | | | | | [...] [place] | | | | | | [address] | | | | | | | | +--------+---------+ + + + | 11/24/ | Office | Cardiology | Flores, | | | 2019 | Visit | | SINDHU Erickson [address] | | | | | | [place], | | | | | | [place] [address] | | | | | | [phone] | | | | | | | | +--------+---------+ + + + documented as of this encounter Visit Diagnoses Not on filedocumented in this encounter"
--- OUTSIDE RECORDS SUMMARY | ~2019-02-28 | XMS | Encounter Summary ---
Demographics + + + | Address | [address] | | | [place] [address] | + + + | Home Phone [...] Team Providers + +------+ + | Care Cma Or Lpn Name | Role | Phone | + [...] + + + + | 07/24/ | Clinical | [facility] | Andriy Weber | Bladder pain | | 2018 | Support | [address] | MD [address] | (Primary Dx) | | | | [place], [place] | THOM [facility] | | | | | [address] | [place] [address] | | | | | [phone] | [phone] | | | | | | | [...] this encounter Progress Loraine Barrett RN - 07/24/2017 10:00 AM PDTPatient presents for DMSO treatment #3 of 4 . She reports she doesn't have any bladder pain now, the treatments are working. After steri le prep, 2% lidocaine gel introduced into urethra for comfort and 15 fr urethral catheter in serted into bladder with 350 cc light yellow urine drained from bladder. 50 cc DMSO with 20 cc 2% lidocaine, 10 cc 8.4% sodium bicarbonate, 40 mg Kenalog, and 10,000 units heparin ins tilled into bladder via gravity per protocol and Dr. Weber's order. Patient remained in [facility] office for 20 minutes prior to voiding. After voiding, patient was discharged home and wi ll return to clinic in 1 week for last treatment............................................ Loraine Hawkins RN on 07/24/17 at 11:06 documented in this encounter Plan of Treatment +--------+---------+ + + + | Date | Type | Specialty | Care Team | Description | +--------+---------+ + + + | 03/31/ | Office | Pulmonology | Mukul Clark MD | | | 2019 | Visit | | [address] | | | | | | [place] | | | | | | [address] | | | | | | | | +--------+---------+ + + + | 11/24/ | Office | Cardiology | Flores, | | | 2019 | Visit | | Georgina, CORRECTIONAL CASE RECORDS SUPERVISOR [address] | | | | | | [place], | | | | | | [place] [address] | | | | | | [phone] | | | | | | | [...]
--- OUTSIDE RECORDS SUMMARY | ~2019-02-28 | XMS | Encounter Summary ---
Demographics + + + | Address | [address] | | | [place] [address] | + + + | Home Phone [...] Team Providers + +------+ + | Care Equipment Operating Engineer Name | Role | Phone | + +------+ + | Juan Cherry DO | PCP | | + +------+ + Encounter Details +--------+ + + + + | Date | Type | Department | Care Team | Description | +--------+ + + + + | 03/22/ | Hospital | [facility] | Guru Cárdenas, | | | 2013 | Encounter | MED CTR EMERGENCY | MD [address] | | | | | CENTER [address] | [facility] [place] | | | | | [place], [place] | [place] [address] | | | | | [address] | [phone] | | | | | [phone] | | | +--------+ + + + [...] | | | | | order to [facility]. | | | | | [...] | | | | send order to [facility] | | | | | | | [facility]. | | | | | [...] | | | | | | [place] [address] | | | | | | [phone] | | | | | | | [...] Performed At | + + + | [facility] | [facility] | | Department [facility] [facility] [place] | [facility] | | [ rep ct street1+2] [ rep ct [facility] | | st zip] Signed | - IMAGING | | | | | Patient Name: JADYN SCHMITZ | | | Physician: SANG : 1965 Age: 48 Sex: F Unit | | | #: [id number] Exam Date: 03/22/13 Location: | | | ER Report #: [id number] Page: | | | %(RAD)RES..mtdd.print.filter("pg") of %(RAD) | | | RES..mtdd.print.filter("tpg") | | | | | | Accession Number: [id number] | | | PORTABLE CHEST CLINICAL HISTORY: [...] Transcribed Date/Time: 03/22/2013 08:50 | | | Structural Drafter: <<Signature on File>> | | | | | | Cesar Ren MD03/22/13 1800 <Electronically signed by | | | Cesar Ren MD> Cesar Ren MD 03/22/13 | | | 0811 Structural Drafter: [employer] Koitpgwcnxazn65/27/14 0850 | | | | | + + + + + + + + | Performing | Address | City/State/Zipcode | Phone Number | | Organization | | | | + + + + + | [facility] | [address] | [place] | [phone] | | [facility] | | [address] | | | - IMAGING | | [...] [address] | [place] | [phone] | | [facility] | | [address] | | | - LABORATORY | | | | + + + + + | [facility] | [address] | [place] | | | [facility] | | [address] | | | - LABORATORY | | [...] + | [facility] | [address] | [place] | [phone] | | [facility] | | [address] | | | - LABORATORY | | | | + + + + + | [facility] | [address] | [place] | | | [facility] | | [address] | | | - LABORATORY | | | | + + + + + documented in this encounter Visit Diagnoses Not on filedocumented in this encounter
--- OUTSIDE RECORDS SUMMARY | ~2019-02-28 | XMS | Encounter Summary ---
Demographics + + + | Address | [address] | | | [place] [address] | + + + | Home Phone [...] Team Providers + +------+ + | Care Grievance Manager Name | Role | Phone | + +------+ + | Juan Cherry DO | PCP | | + +------+ + Encounter Details +--------+ + + + + | Date | Type | Department | Care Team | Description | +--------+ + + + + | 06/18/ | Hospital | [facility] | Kevin Sandoval, | COPD (chronic | | 2013 | Encounter | MED CTR XRAY [address] | MD [address] | obstructive | | | | [place] | [place] | pulmonary disease) | | | | [place] [address] | [address] | | | | | [phone] | | | +--------+ + + + [...] | | | | | | | [facility]. | | | | | [...] [place] | | | | | | [address] | | | | | | | | +--------+---------+ + + + | 11/24/ | Office | Cardiology | [place], | | | 2019 | Visit | | SINDHU Erickson [address] | | | | | | [place], | | | | | | [place] [address] | | | | | | [phone] | | | | | | | [...] + | MISCELLANEOUS LAB | | | [phone] | + +---------+ + + | MISCELANIOUS LAB | | | [phone] | + +---------+ + + documented in this encounter Visit Diagnoses + + | Diagnosis | + + | COPD (chronic obstructive pulmonary disease) Chronic airway obstruction, not | | elsewhere classified | + + documented in this encounter"
--- OUTSIDE RECORDS SUMMARY | ~2019-02-28 | XMS | Encounter Summary ---
Demographics + + + | Address | [address] | | | [place] [address] | + + + | Home Phone [...] Team Providers + +------+ + | Care Tire Mechanic Name | Role | Phone | + +------+ + PCP | Unavailable | + +------+ + Encounter Details +--------+ + + + + | Date | Type | Department | Care Team | Description | +--------+ + + + + | 11/27/ | Hospital | [facility] | Ozzy Delcid, | | | 2009 - | Encounter | MED CTR OP REHAB | [address] | | | | | [address] [place] | [place] | | | 12/24/ | | [place] [address] | [address] | | | 2009 | | [phone] | | | +--------+ + + + [...] [place] | | | | | | [address] | | | | | | | | +--------+---------+ + + + | 11/24/ | Office | Cardiology | [place], | | | 2019 | Visit | | SINDHU Erickson [address] | | | | | | [place] | | | | | | [place] [address] | | | | | | [phone] | | | | | | | | +--------+---------+ + + + documented as of this encounter Visit Diagnoses Not on filedocumented in this encounter"
--- OUTSIDE RECORDS SUMMARY | ~2019-02-28 | XMS | Encounter Summary ---
Demographics + + + | Address | [address] | | | [place] [address] | + + + | Home Phone [...] Team Providers + +------+ + | Care Import Dispatcher Name | Role | Phone | [...] [address] [place] | [place] [address] | | | | | [place], [place] | [phone] | | | | | [address] | | | | | | [phone] | | | +--------+ + + + [...] [place] | | | | | | [address] | | | | | | | | +--------+---------+ + + + | 11/24/ | Office | Cardiology | [place], | | | 2019 | Visit | | SINDHU Erickson [address] | | | | | | [place], | | | | | | [place] [address] | | | | | | [phone] | | | | | | | | +--------+---------+ + + + documented as of this encounter Visit Diagnoses + + | Diagnosis | + + | Sprain of chest wall - Primary Other specified sites of sprains and strains | + + documented in this encounter"
--- OUTSIDE RECORDS SUMMARY | ~2019-02-28 | XMS | Encounter Summary ---
Demographics + + + | Address | [address] | | | [place] [address] | + + + | Home Phone [...] Team Providers + +------+ + | Care Molecular Physicist Name | Role | Phone | [...] | | | | | | [place] [address] | | | | | | [phone] | | | +--------+ + + + [...] [place] | | | | | | [address] | | | | | | | | +--------+---------+ + + + | 11/24/ | Office | Cardiology | [place], | | | 2019 | Visit | | SINDHU Erickson [address] | | | | | | [place] | | | | | | [place] [address] | | | | | | [phone] | | | | | | | | +--------+---------+ + + + documented as of this encounter Visit Diagnoses Not on filedocumented in this encounter"
--- OUTSIDE RECORDS SUMMARY | ~2019-02-28 | XMS | Encounter Summary ---
Demographics + + + | Address | [address] | | | [place] [address] | + + + | Home Phone [...] Providers + +------+ + | Care Network Support Specialist Name | Role | Phone | + +------+ + | Juan Cherry DO | PCP | | + +------+ + Encounter Details +--------+ + + + + | Date | Type | Department | Care Team | Description | +--------+ + + + + | 04/02/ | Hospital | [facility] | Dio Yun | | | 2017 | Encounter | MED CTR NUCLEAR | MD [address] | | | | | MEDICINE [address] | [place] [address] | | | | | [place], | [place], [place] | | | | | [place] [address] | [address] | | | | | [phone] | [phone] | | | | | | | [...] | | | | | order to [facility]. | | | | | + [...] [facility]. | | | | | | | [...] | | | | ([facility]) | | | | | | [...] | 0 | 10/13/19 | | | Pfamjcmbkv-PFUQ-Ijbp | mouth as needed. | | | 16 | 7 | | -Cod [id number] MG | | | | | | [...] | | | | ([facility]) | | | | | | [...] | | | | | | [place] [address] | | | | | | [phone] | | | | | | | [...] + + | Performing | Address | City/State/[facility] | Phone Number | | Organization | | | | + +---------+ + + | [facility] | | | | + +---------+ + + documented in this encounter Visit Diagnoses Not on filedocumented in this encounter
--- OUTSIDE RECORDS SUMMARY | ~2019-02-28 | XMS | Encounter Summary ---
Demographics + + + | Address | [address] | | | [place] [address] | + + + | Home Phone [...] Team Providers + +------+ + | Care Material Worker Name | Role | Phone | [...] | 05/27/ | Telephone | [facility] | Weber, Andriy | Other | | 2018 | | [address] | [address] | | | | | [place] | THOM [facility] | | | | | [address] | [place] [address] | | | | | [phone] | [phone] | | | | | | | [...] [place] | | | | | | [address] | | | | | | | | +--------+---------+ + + + | 11/24/ | Office | Cardiology | [place], | | | 2019 | Visit | | SINDHU Erickson [address] | | | | | | [place] | | | | | | [place] [address] | | | | | | [phone] | | | | | | | | +--------+---------+ + + + documented as of this encounter Visit Diagnoses Not on filedocumented in this encounter"
--- OUTSIDE RECORDS SUMMARY | ~2019-02-28 | XMS | Encounter Summary ---
Demographics + + + | Address | [address] | | | [place] [address] | + + + | Home Phone [...] Providers + +------+ + | Care Stone Rigger Name | Role | Phone | + +------+ + | Juan Cherry DO | PCP | | + +------+ + Encounter Details +--------+ + + + + | Date | Type | Department | Care Team | Description | +--------+ + + + + | 09/09/ | Hospital | [facility] | Conversion | Pain | | 2015 | Encounter | CONVERSION [address] | Transaction, | | | | | [address] | Provider Unknown | | | | | [place], [place] | [phone] | | | | | [address] | | | | | | [phone] | | | +--------+ + + + [...] | | | [facility]. | | | | [...] | | | | Jose [address] [place] | | | | | | [address] | | | | | | | | +--------+---------+ + + + | 11/24/ | Office | Cardiology | [place], | | | 2019 | Visit | | SINDHU Erickson [address] | | | | | | [place], | | | | | | [place] [address] | | | | | | [phone] | | | | | | | [...]
--- OUTSIDE RECORDS SUMMARY | ~2019-02-28 | XMS | Encounter Summary ---
Demographics + + + | Address | [address] | | | [place] [address] | + + + | Home Phone [...] Team Providers + +------+ + | Care Ammonia Box Tender Name | Role | Phone | + +------+ + PCP | Unavailable | + +------+ + Encounter Details +--------+ + + + + | Date | Type | Department | Care Team | Description | +--------+ + + + + | 02/27/ | Hospital | [facility] | Ozzy Delcid, | | | 2010 | Encounter | MED CTR XRAY [address] | [address] | | | | | [place] | [place], [place] | | | | | [place] [address] | [address] | | | | | [phone] | | | +--------+ + + + [...] [place] | | | | | | [address] | | | | | | | | +--------+---------+ + + + | 11/24/ | Office | Cardiology | [place], | | | 2019 | Visit | | SINDHU Erickson [address] | | | | | | [place], | | | | | | [place] [address] | | | | | | [phone] | | | | | | | | +--------+---------+ + + + documented as of this encounter Visit Diagnoses Not on filedocumented in this encounter"
--- OUTSIDE RECORDS SUMMARY | ~2019-02-28 | XMS | Encounter Summary ---
Demographics + + + | Address | [address] | | | [place] [address] | + + + | Home Phone [...] Team Providers + +------+ + | Care Specialty Development Consultant Name | Role | Phone | [...] | | | | [facility] | [address] | [address] | | | | | EXERCISE | [place], | [place] | | | | | | [place] [address] | [place], [place] | | | | | | Phone: | [address] | | | | | | [phone] | Phone: | | | | | | Fax: | [phone] | | | | | | [phone] | Fax: | | | | | | | [phone] | +--------+--------+ + + + + Encounter Details +--------+---------+ + + + | Date | Type | Department | Care Team | Description | +--------+---------+ + + + | 08/01/ | Office | [facility] | Jared Mcdonough, | Chronic obstructive | | 2017 | Visit | MED CTR CARDIAC | MD [address] | pulmonary disease, | | | | REHABILITATION [address] [place], | unspecified COPD | | | | [address] [place] | [place] [address] | type (HCC) (Primary | | | | [place] [address] | [phone] | Dx); Mild persistent | | | | [phone] | | asthma without | | | [...] [place] | | | | | | [address] | | | | | | | | +--------+---------+ + + + | 11/24/ | Office | Cardiology | [place], | | | 2019 | Visit | | SINDHU Erickson [address] | | | | | | [place], | | | | | | [place] [address] | | | | | | [phone] | | | | | | | | +--------+---------+ + + + documented as of this encounter Visit Diagnoses + + | Diagnosis | + + | Chronic obstructive pulmonary disease, unspecified COPD type (HCC) - Primary | + + | Mild persistent asthma without complication Unspecified asthma | + + documented in this encounter"
--- OUTSIDE RECORDS SUMMARY | ~2019-02-28 | XMS | Encounter Summary ---
Demographics + + + | Address | [address] | | | [place] [address] | + + + | Home Phone [...] Team Providers + +------+ + | Care Bond Writer Name | Role | Phone | [...] | | | | | [address] | | | | | | [place] [address] | | | | | | [phone] | | | +--------+ + + + [...] Weber, PT - 02/25/2014 10:43 [facility] [address] [place] [address] Physical Therapy Discharge Note Date: 02/25/2014 Patient [...] [place] | | | | | | [id number] | | | | | | | | +--------+---------+ + + + | 11/24/ | Office | Cardiology | Flores, | | | 2019 | Visit | | SINDHU Erickson [address] | | | | | | [place], | | | | | | [place] [address] | | | | | | [phone] | | | | | | | | +--------+---------+ + + + documented as of this encounter Visit Diagnoses Not on filedocumented in this encounter"
--- OUTSIDE RECORDS SUMMARY | ~2019-02-28 | XMS | Encounter Summary ---
Demographics + + + | Address | [address] | | | [place] [address] | + + + | Home Phone [...] Team Providers + +------+ + | Care Wind Turbine Mechanic Name | Role | Phone | + +------+ + PCP | Unavailable | + +------+ + Encounter Details +--------+ + + + + | Date | Type | Department | Care Team | Description | +--------+ + + + + | 10/17/ | Hospital | [facility] | Kevin Worthy | | | 2010 | Encounter | MED CTR MP INTRA OP | MD iGnny [address] | | | | | [address] | [place], [place] | | | | | [place], [place] | [address] | | | | | [address] | | | | | | [phone] | | | +--------+ + + + [...] [place] | | | | | | [address] | | | | | | | | +--------+---------+ + + + | 11/24/ | Office | Cardiology | Flores, | | | 2019 | Visit | | SINDHU Erickson [address] | | | | | | [place], | | | | | | [place] [address] | | | | | | [phone] | | | | | | | | +--------+---------+ + + + documented as of this encounter Visit Diagnoses Not on filedocumented in this encounter"
--- OUTSIDE RECORDS SUMMARY | ~2019-02-28 | XMS | Clinical Summary ---
Demographics + + + | Address | [address] | | | [place] [address] | + + + | Home Phone [...] Providers + +------+ + | Care Home Economist Name | Role | Phone | + [...] | | send order to [facility] | | | | | | [...] [facility]. | | | | | | + + + +---------+------+------+-------+ +---+ + | | Additional | | | informationPatient | | | taking differently: | | [...] Please send | | | order to [facility] | | | Reported on | | | 12/23/2018 11:49 AM | +---+ + + + +---------+----+------+------+-------+ | oxygen | Inhale into the | | 0 | | | Activ | | | lungs continuous. 3 | | | | | e | | | liters while awake | | | | | | + + +---------+----+------+------+-------+ | predniSONE | Take 10 mg by mouth | | 0 | | | Activ | | (DELTASONE) 10 mg | Daily. | | | | | e | | tablet | | | | | | | + + +---------+----+------+------+-------+ | roflumilast | Take 1 tablet by | 30 | 3 | 07/2 | | Activ | | (DALIRESP) 500 mcg | mouth Daily. | tablet | | 1/20 | | e | | tablet | | | | 15 | | | + + +---------+----+------+------+-------+ | [...] | 4 times daily. | | | 3/20 | | e | | | | | | 17 | | | + + +---------+----+------+------+-------+ | hydrOXYzine | Take 1 tablet by | | 0 | 10/25 | | Activ | | hydrochloride | mouth Daily. | | | 0/20 | | e | | (ATARAX) 25 mg | | | | 18 | | | | tablet | | | | | | | + + +---------+----+------+------+-------+ | | Inhale 2 puffs into | | 0 | | | Activ | | fluticasone-salmeter | the lungs 2 times | | | | | e | | ol (ADVAIR HFA) | daily. | | | | | | | 230-21 MCG/ACT | | | | | | | | inhaler | | | | | | | [...] tablet by | 90 | 3 | 08/24 | | Activ | | (SYNTHROID) 75 MCG | mouth every morning | tablet | | 5/20 | | e | | tablet | (before breakfast). | | | 19 | | | + + +---------+----+------+------+-------+ | VENTOLIN HFA 108 | | | 0 | 07/0 | | Activ | | (90 Base) MCG/ACT | | | | 5/20 | | e | | inhaler | | | | 19 | | | + + +---------+----+------+------+-------+ | potassium chloride | Take 1 tablet by | 90 | 3 | 07/2 | | Activ | | (KLOR-CON M20) 20 | mouth Daily. | tablet | | / | | e | | mEq ER tablet | | | | 19 | | | + + +---------+----+------+------+-------+ | pantoprazole | TAKE ONE TABLET BY | 90 | 0 | 10/0 | | Activ | | (PROTONIX) 40 mg | MOUTH EVERY DAY IN | tablet | | 09/12 | | e | | tablet | THE MORNING WITH | | | 19 | | | | | BREAKFAST | | | | | | + + +---------+----+------+------+-------+ | zolpidem (AMBIEN) | Take 1 tablet by | | 0 | 09/ | | Activ | | 10 mg tablet | mouth Daily. | | | 0/20 | | e | | | | | | 19 | | | + + +---------+----+------+------+-------+ | risperiDONE | Take 2 mg by mouth | | 0 | 10/2 | | Activ | | (RISPERDAL) 2 MG | Daily. | | | 1/20 | | e | | tablet | | | | 19 | | | + + +---------+----+------+------+-------+ | magnesium oxide | Take 1 tablet by | 30 | 5 | 10/3 | | Activ | | (MAG-OX) 400 mg | mouth Daily. | tablet | | 0/20 | | e | | tablet | | | | 19 | | [...] | | | + + +---------+----+------+------+-------+ | Albuterol Sulfate | Inhale 2 puffs into | | 0 | | 12/1 | Disco | | (VENTOLIN HFA IN) | the lungs 2 times | | | | 2/20 | ntinu | | | daily. | | | | 19 | ed | | | | | | | | (Reor | | | | | | | | willow) | + + +---------+----+------+------+-------+ + + +-------+ [...] | | patient mowed the lawn, by Clay Mcdonough MD. | + + + + [...] + + + + + | Overview: [facility] 04/12/2010 Diverticulosis | | | | [...] + + | Overview: Echocardiogram, 08/23/2013 at [facility] shows normal | | systolic left ventricular [...] | + +---+ + + | Overview: AKIRA [id number] Decision | + + + +---+ | [...] 9 | + + + + Encounters +--------+---------+ + + + | Date | Type | Specialty | Care Team | Description | +--------+---------+ + + + | 02/04/ | Refill | Pulmonology | Mukul Clark MD | Medication Refill | | 2018 | | | | | +--------+---------+ + + + | 12/23/ | Office | Cardiology | [place], | Palpitations; | | 2018 | Visit | | SINDHU Erickson | Paroxysmal atrial | | | | | | tachycardia (HCC); | | | | | | Pericarditis, [...] to medication | +--------+---------+ + + + from Last 3 Months [...] | | TRIVALENT(PED/ADOL/A | | | | DULT) PSKT | | | + + + [...] recent travel history available. | + + Last Filed Vital Signs + [...] | | | | | | [place] [address] | | | | | | [phone] | | | | | | | | +--------+---------+ + + + + + + + + | Health Maintenance | Due Date | Last Done | Comments | + + + + [...] + + | Vaccine: Influenza | | 11/03/2017, 11/19/2016, | | | (#1) | 9 | 12/10/2014, Additional history | | | | | exists | | + + + + + | Urine Drug Screening | | 2018 | | | | 9 | | | + + + + + | Colorectal Cancer | | 04/12/2010, 02/24/1995 | | | Screening | 1 | | | | (Colonoscopy) | | | | + + + + + | Vaccine: | | 07/18/2013, 11/14/2011, | | | Dtap/Tdap/Td (4 - | 4 | 01/22/2008 | | | Td) | | | | + + + + + | Vaccine: | Completed | 12/05/2017, 11/24/2015, | | | Pneumococcal 19-64 | | 02/24/2011 | | + + + + + [...] | | + +--------+ + + + from Last 3 Months Results ECG 12 lead (12/23/2018 12:00 PM [...] CLAY | | | | | | ([id number]) on 12/23/2018 | | | | | [...] | | | + +---------+ + + from Last 3 Months Insurance [...] +--------+ +---------+--------+ | MEDICARE | MEDICA | [id number] | | [phone] | | Medica | [...] Self | [birth year] | | [address] | | | al/Fam | | 1965 | [phone] | 1 [place] | | | rigoberto | | | 5 (Home) | [address] | | | | | | [phone] | | | | | | | 4 (Work) | | + +--------+ +--------+ + + | Rosario Malik | Worker | Self | [birth year] | | [address] | | | s Comp | | 1965 | [phone] | [place] | | | | | | 1 ([place]) | [address] | | | | | | [phone] | | | | | | | 3 (Work) | | + +--------+ +--------+ + + Advance Directives + + + + + | Type | Date Recorded | Patient | Explanation | | | | Appeals Nurse | | + + + + + | Power of | | | | | Site Head | | | | + + + [...]
--- OUTSIDE RECORDS SUMMARY | ~2019-02-28 | XMS | Encounter Summary ---
Demographics + + + | Address | [address] | | | [place] [address] | + + + | Home Phone [...] Team Providers + +------+ + | Care Drug Abuse Technician Name | Role | Phone | [...] + + | 05/28/ | Office | [facility] | Kade Hoffman MD | COPD exacerbation | | 2013 | Visit | CARE [address] | [address] | ([facility]) (Primary Dx) | | | | [place] | [place] [address] | | | | | [address] | [phone] | | | | | [phone] | | | +--------+---------+ + + + [...] prednisone, add zithromax FU 3 days with gasoline engine assembler. documented in this enc ounter Plan of [...] [place] | | | | | | [address] | | | | | | | | +--------+---------+ + + + | 11/24/ | Office | Cardiology | Flores, | | | 2019 | Visit | | SINDHU Erickson [address] | | | | | | [place], | | | | | | [place] [address] | | | | | | [phone] | | | | | | | | +--------+---------+ + + + documented as of this encounter Visit Diagnoses + + | Diagnosis | + + | COPD exacerbation (HCC) - Primary Obstructive chronic bronchitis with exacerbation | + + documented in this encounter
--- OUTSIDE RECORDS SUMMARY | ~2019-02-28 | XMS | Encounter Summary ---
Demographics + + + | Address | [address] | | | [place] [address] | + + + | Home Phone [...] Providers + +------+ + | Care Senior Shipping Clerk Name | Role | Phone | [...] Description | +--------+--------+ + + + | 11/17/ | Refill | [facility] [place] | [place], | Medication Refill | | 2017 | | CARDIOLOGY [address] | SINDHU Erickson [address] | | | | | [place], | [place], | | | | | [place] [address] | [place] [address] | | | | | [phone] | [phone] | | | | | | | [...] | | | | | | [place] [address] | | | | | | [phone] | | | | | | | | +--------+---------+ + + + documented as of this encounter Visit Diagnoses Not on filedocumented in this encounter"
--- OUTSIDE RECORDS SUMMARY | ~2019-02-28 | XMS | Encounter Summary ---
Demographics + + + | Address | [address] | | | [place] [address] | + + + | Home Phone [...] Team Providers + +------+ + | Care File Clerk Name | Role | Phone | [...] + + | 05/28/ | Office | [facility] | Brian Miranda | Sprain of chest | | 2013 | Visit | [facility] | MD [address] | abigail garcia | | | | [address] | [facility] | encounter (Primary | | | | [address] [facility] | [place] [address] | Dx); Place of | | | | [place], [place] | [phone] | occurrence, | | | | [address] | | industrial places | | | | [phone] | | and premises | +--------+---------+ + [...] - 05/28/2013 8:40 AM PDTClaim number: [id number] Date of injury: 04/05/2013 Employer: [employer] Sal[employer] Guarantor: Jelani [employer] Complaint: Chest wall sprain, scheduled followup Subjective: [...] signs as recor ded by the medical sales associate was a blood pressure of 82/60 and [...] deemed MMI status but anticipated evaluation of is at followup in 2 weeks. She [...] [place] | | | | | | [id number] | | | | | | | | +--------+---------+ + + + | 11/24/ | Office | Cardiology | [place], | | | 2019 | Visit | | SINDHU Erickson [address] | | | | | | [place] | | | | | | [place] [address] | | | | | | [phone] | | | | | | | | +--------+---------+ + + + documented as of this encounter Visit Diagnoses + + | Diagnosis | + + | Sprain of chest wall, subsequent encounter - Primary | + + | Place of occurrence, industrial places and premises | + + documented in this encounter
--- OUTSIDE RECORDS SUMMARY | ~2019-02-28 | XMS | Encounter Summary ---
Demographics + + + | Address | [address] | | | [place] [address] | + + + | Home Phone [...] Team Providers + +------+ + | Care Thread Grinder Tool Name | Role | Phone | [...] [address] | | | | | [place], | [place], | | | | | [place] [address] | [place] [address] | | | | | [phone] | [phone] | | | | | | | [...] [place] | | | | | | [address] | | | | | | | | +--------+---------+ + + + | 11/24/ | Office | Cardiology | Flores, | | | 2019 | Visit | | SINDHU Erickson [address] | | | | | | [place], | | | | | | [place] [address] | | | | | | [phone] | | | | | | | [...]
--- OUTSIDE RECORDS SUMMARY | ~2019-02-28 | XMS | Encounter Summary ---
Demographics + + + | Address | [address] | | | [place] [address] | + + + | Home Phone [...] + +------+ + | Care Director Of Contracts Name | Role | Phone | + [...] + + | 07/24/ | Office | [facility] | [place], | Palpitations | | 2018 | Visit | CARDIOLOGY [address] | SINDHU Erickson [address] | (Primary Dx); | | | | [place], | [place], | Paroxysmal atrial | | | | [place] [address] | [place] [address] | tachycardia (HCC); | | | | [phone] | [phone] | Other migraine | | | | [...] takes this da rigoberto Respiratory Therapy Supplies [facility] Please provide patient with necessary CPAP supplies ( she did not specify, okay to send order as appropriate) Diagnosis Code(s)327.23 . Length of Need 99 months. Please send order to [facility]. 1 each 0 Respiratory Therapy Supplies [facility] Change CPAP back to 11-14 cm H2O. All necessary suppl ies. No oxygen bleed in. Diagnosis Code(s)327.23. Length of Need: Lifetime. Please send orde r to [facility]. This is not a new order, [...] has lengthened Confirmed by CLAY MCDONOUGH MD ([id number]) on 05/06/2017 4:53:06 PM LAB RESULTS reviewed during visit today primarily from [facility]: LIPID Lab Results Component Value Date [...] 417 (A) 03/18/2017 I reviewed records from [facility] for office visit on 04/2017 whic [...] and v entricular function done at the [facility]. LVEF 78%. C. Holter Monitor 08/16/13 [...] She is in class II of the [place] functional class. There are no [...] She was seen at the ED of [facility] 3 weeks ago and again 1 [...] is in a class I-II o f [employer] functional class. There is no [...] this chart may have been created with [employer] voice recognition software. Occasi onal wrong-word or [...] [place] | | | | | | [address] | | | | | | | | +--------+---------+ + + + | 11/24/ | Office | Cardiology | [place], | | | 2019 | Visit | | SINDHU Erickson [address] | | | | | | [place] | | | | | | [place] [address] | | | | | | [phone] | | | | | | | [...]
--- OUTSIDE RECORDS SUMMARY | ~2019-02-28 | XMS | Encounter Summary ---
Demographics + + + | Address | [address] | | | [place] [address] | + + + | Home Phone [...] Providers + +------+ + | Care Laboratory Equipment Installer Name | Role | Phone | [...] + + | 07/24/ | Telephone | [facility] | Andriy Weber | Hematuria; Bladder | | 2017 | | [address] | MD [address] | Pain | | | | [place], [place] | [facility] | | | | | [address] | [place] [address] | | | | | [phone] | [phone] | | | | | | | [...] | | | | | | [place] [address] | | | | | | [phone] | | | | | | | | +--------+---------+ + + + documented as of this encounter Visit Diagnoses Not on filedocumented in this encounter"
--- OUTSIDE RECORDS SUMMARY | ~2019-02-28 | XMS | Encounter Summary ---
Demographics + + + | Address | [address] | | | [place] [address] | + + + | Home Phone [...] Team Providers + +------+ + | Care Seam Taper Machine Name | Role | Phone | + +------+ + | Juan Cherry DO | PCP | | + +------+ + Reason for Visit +--------+ + | Reason | Comments | +--------+ + | Other | pulse rate | +--------+ + Encounter Details +--------+ + + + + | Date | Type | Department | Care Team | Description | +--------+ + + + + | 08/14/ | Telephone | [facility] [place] | [place], | Other (pulse rate) | | 2017 | | CARDIOLOGY [address] | SINDHU Erickson [address] | | | | | [place], | [place], | | | | | [place] [address] | [place] [address] | | | | | [phone] | | | | | | | [...] [place] | | | | | | [address] | | | | | | | | +--------+---------+ + + + | 11/24/ | Office | Cardiology | [place], | | | 2019 | Visit | | SINDHU Erickson [address] | | | | | | [place], | | | | | | [place] [address] | | | | | | [phone] | | | | | | | | +--------+---------+ + + + documented as of this encounter Visit Diagnoses Not on filedocumented in this encounter"
--- OUTSIDE RECORDS SUMMARY | ~2019-02-28 | XMS | Encounter Summary ---
Demographics + + + | Address | [address] | | | [place] [address] | + + + | Home Phone [...] Providers + +------+ + | Care Area Sales Manager Name | Role | Phone | + +------+ + PCP | Unavailable | + +------+ + Encounter Details +--------+ + + + + | Date | Type | Department | Care Team | Description | +--------+ + + + + | 11/08/ | Hospital | [facility] | Ozzy Delcid, | | | 2009 - | Encounter | MED CTR OP REHAB | [address] | | | | | [address] [place] | [place] | | | 11/23/ | | [place] [address] | [address] | | | 2009 | | [phone] | | | +--------+ + + + [...] [place] | | | | | | [address] | | | | | | | | +--------+---------+ + + + | 11/24/ | Office | Cardiology | [place], | | | 2019 | Visit | | SINDHU Erickson [address] | | | | | | [place] | | | | | | [place] [address] | | | | | | [phone] | | | | | | | | +--------+---------+ + + + documented as of this encounter Visit Diagnoses Not on filedocumented in this encounter"
--- OUTSIDE RECORDS SUMMARY | ~2019-02-28 | XMS | Encounter Summary ---
Demographics + + + | Address | [address] | | | [place] [address] | + + + | Home Phone [...] Providers + +------+ + | Care Administrative Job Titles Name | Role | Phone | + [...] | with brief | [address] | [place] | | | | n | loss of | [address] | [place], | | | | | consciousnes | [place], | [place] [address] | | | | | s | [place] [address] | Phone: | | | | | Post-concuss | Phone: | [phone] | | | | | ion vertigo | [phone] | Fax: | | | | | [id number] | Fax: | [phone] | | | | | (ICD-10-CM) | [phone] | | | | | | - [...] | Concussion | Aaron Kim MD | Armature Straightener [address] | | | Required | | with brief | [address] | [place] | | | | | loss of | [address] | [place], [place] | | | | | consciousnes | [place], | [address] | | | | | s Word | [place] [address] | Phone: | | | | | finding | Phone: | [phone] | | | | | difficulty | [phone] | Fax: | | | | | [id number] | Fax: | [phone] | | | | | (ICD-10-CM) | [phone] | | | | | | - [...] | PHYSIATRY [address] | [address] | brief loss of | | | | [place], | [place], [place] | consciousness | | | | [place] [address] | [address] | (Primary Dx); | | | | [phone] | | Post-concussion | | | | [...] MD - 04/11/2016 12:43 PM PST [facility] [address] [facility] [address] OFFICE NOTE AARON SANTOYO JR, MD Patient: JADYN SCHMITZ Admitting: MR #: [id number] LOC: PT TYPE: Adm Date: 04/11/2016 : 1965 PHYSICAL MEDICINE REHABILITATION PROGRESS NOTE DATE OF : 1965 PRIMARY CARE PROVIDER: Yong Cherry DO DATE OF SERVICE: 04/11/2016 PATIENT IDENTIFICATION: A 51-year-old female with mechanical fall, concussion, and brief loss of consciousness on 03/15/2016. HISTORY OF PRESENT ILLNESS: The patient was last seen by [facility] 03/28/2016. She had a concuss ion 03/23/2016 [...] Transcribed on 04/11/2016 20:34:55 by ms job# [id number] Confirmation #: [id number] cc: YONG CHERRY DO ichael, Aaron Kim MD - 04/11/2016 11:47 AM PSTThis office note has been dictated. Report Confirmation# [id number] signed by Aaron Santoyo MD at 04/11/2016 [...] | | | | | | [place] [address] | | | | | | [phone] | | | | | | | [...]
--- OUTSIDE RECORDS SUMMARY | ~2019-02-28 | XMS | Encounter Summary ---
Demographics + + + | Address | [address] | | | [place] [address] | + + + | Home Phone [...] Providers + +------+ + | Care Coal Hiker Name | Role | Phone | + [...] | | Dx) | | | | [address] | | | | | | [phone] | | | +--------+ + + + [...] have not thoroughly proofread this note, and machine marker erro rs may occur. Nancy Simms C MA - 11/01/2015 8:22 AM PDT Pt. Presents for a DMSO #2 for Interstitial Cystitis. Administrations This Visit dimethyl sulfoxide (RIMSO-50) 50% solution 50 mL Admin Date Action Dose Route Administered By 11/01/2015 Given 50 mL Bladder Instillation Nancy Dalal CMA heparin 10,000 units/mL injection 10,000 Units Admin Date Action Dose Route Administered By 11/01/2015 Given 74651 Units Subcutaneous Nancy Dalal CMA lidocaine 2% injection 20 mL [...] Administered By 11/01/2015 Given 40 mg Intramuscular Nnacy Dalal CMA documented in this enc ounter [...] | | | | | | [place] [address] | | | | | | [phone] | | | | | | | [...] 1.001 - 1.030 | | | | [place], | | | | | | UA, [...]
--- OUTSIDE RECORDS SUMMARY | ~2019-02-28 | XMS | Encounter Summary ---
Demographics + + + | Address | [address] | | | [place] [address] | + + + | Home Phone [...] Team Providers + +------+ + | Care Agronomy Technician Name | Role | Phone | [...] | +--------+ + + + + | 09/26/ | Telephone | [facility] | Kevin Sandoval, | Other (increased | | 2015 | | PULMONARY [address] | MD [address] | shortness of breath) | | | | [place], | [place], [place] | | | | | [place] [address] | [address] | | | | | [phone] | | | +--------+ + + + [...] [place] | | | | | | [address] | | | | | | | | +--------+---------+ + + + | 11/24/ | Office | Cardiology | [place], | | | 2019 | Visit | | SINDHU Erickson [address] | | | | | | [place], | | | | | | [place] [address] | | | | | | [phone] | | | | | | | | +--------+---------+ + + + documented as of this encounter Visit Diagnoses Not on filedocumented in this encounter"
--- OUTSIDE RECORDS SUMMARY | ~2019-02-28 | XMS | Encounter Summary ---
Demographics + + + | Address | [address] | | | [place] [address] | + + + | Home Phone [...] Team Providers + +------+ + | Care Camp Dishwasher Name | Role | Phone | + [...] | | | | [facility] | [address] | [address] | | | | | EXERCISE | [place], | [place] | | | | | | [place] [address] | [place], [place] | | | | | | Phone: | [address] | | | | | | [phone] | Phone: | | | | | | Fax: | [phone] | | | | | | [phone] | Fax: | | | | | | | [phone] | +--------+--------+ + + + + Encounter Details +--------+---------+ + + + | Date | Type | Department | Care Team | Description | +--------+---------+ + + + | 08/20/ | Office | [facility] | Jared Mcdonough, | Chronic obstructive | | 2017 | Visit | MED CTR CARDIAC | [address] | pulmonary disease, | | | | REHABILITATION [address] [place], | unspecified COPD | | | | [address] [place] | [place] [address] | type (HCC) (Primary | | | | [place] [address] | [phone] | Dx) | | | | [phone] | | | +--------+---------+ + + + [...] [place] | | | | | | [address] | | | | | | | | +--------+---------+ + + + | 11/24/ | Office | Cardiology | [place], | | | 2019 | Visit | | SINDHU Erickson [address] | | | | | | [place], | | | | | | [place] [address] | | | | | | [phone] | | | | | | | | +--------+---------+ + + + documented as of this encounter Visit Diagnoses + + | Diagnosis | + + | Chronic obstructive pulmonary disease, unspecified COPD type (HCC) - Primary | + + documented in this encounter"
--- OUTSIDE RECORDS SUMMARY | ~2019-02-28 | XMS | Encounter Summary ---
Demographics + + + | Address | [address] | | | [place] [address] | + + + | Home Phone [...] + + | 06/18/ | Office | [facility] | Kevin Sandoval, | COPD (chronic | | 2013 | Visit | PULMONARY [address] | MD [address] | obstructive | | | | [place], | [place], [place] | pulmonary disease) | | | | [place] [address] | [address] | (Primary Dx); GARRY | | | | [phone] | | (obstructive sleep | | | [...] another prednisone taper. On conversations occurred in [facility] office. The patient was socially seen in [...] [facility]) 10/28/2012 Overview: Managed by [facility] along with hypothyroidism Osteoarthritis hay Past Surgical History Past Surgical History Procedure Date Hammertoe repair right sided Hiatal hernia repair Hiatal hernia Kirk and bso Ovarian cysts, not cancer Colonoscopy 03/2010 Colonoscopy 1995 [facility] Family History: Family History Problem Relation [...] d 99 months. Please send order to [facility] Disp: 1 each, Rfl: 0 Respiratory Therapy Supplies MISC, Change CPAP back to 11-14 cm H2O. All necessary supplies . No oxygen bleed in. Diagnosis Code(s)327.23. Length of Need: Lifetime. [facility] This is not a new order, just [...] | | | | | | [place] [address] | | | | | | [phone] | | | | | | | [...] + | MISCELLANEOUS LAB | | | [phone] | + +---------+ + + | MISCELANIOUS LAB | | | [phone] | + +---------+ + + documented in [...]
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
--- OUTSIDE RECORDS SUMMARY | ~2019-02-28 | XMS | Encounter Summary ---
Demographics + + + | Address | [address] | | | [place] [address] | + + + | Home Phone [...] Team Providers + +------+ + | Care Express Manager Name | Role | Phone | [...] | apnea (adult) | | | | [place], | | (pediatric) (Primary | | | | [place] [address] | | Dx) | | | | [phone] | | | +--------+ + + + [...] [place] | | | | | | [address] | | | | | | | | +--------+---------+ + + + | 11/24/ | Office | Cardiology | [place], | | | 2019 | Visit | | SINDHU Erickson [address] | | | | | | [place], | | | | | | [place] [address] | | | | | | [phone] | | | | | | | | +--------+---------+ + + + documented as of this encounter Visit Diagnoses + + | Diagnosis | + + | Obstructive sleep apnea (adult) (pediatric) - Primary | + + documented in this encounter"
--- OUTSIDE RECORDS SUMMARY | ~2019-02-28 | XMS | Encounter Summary ---
Demographics + + + | Address | [address] | | | [place] [address] | + + + | Home Phone [...] Providers + +------+ + | Care Surgical Appliances Salesperson Name | Role | Phone | [...] [address] | | | | | [place], | [place], | | | | | [place] [address] | [place] [address] | | | | | [phone] | [phone] | | | | | | | [...] [place] | | | | | | [address] | | | | | | | | +--------+---------+ + + + | 11/24/ | Office | Cardiology | [place], | | | 2019 | Visit | | SINDHU Erickson [address] | | | | | | [place], | | | | | | [place] [address] | | | | | | [phone] | | | | | | | [...]
--- OUTSIDE RECORDS SUMMARY | ~2019-02-28 | XMS | Encounter Summary ---
Demographics + + + | Address | [address] | | | [place] [address] | + + + | Home Phone [...] Team Providers + +------+ + | Care Wedding Planning Internship Name | Role | Phone | [...] + + | 09/26/ | Telephone | [facility] | Kevin Sandoval, | Other (increased | | 2015 | | PULMONARY [address] | MD [address] | shortness of breath) | | | | [place], | [place], [place] | | | | | [place] [address] | [address] | | | | | [phone] | | | +--------+ + + + [...] [place] | | | | | | [address] | | | | | | | | +--------+---------+ + + + | 11/24/ | Office | Cardiology | [place], | | | 2019 | Visit | | SINDHU Erickson [address] | | | | | | [place], | | | | | | [place] [address] | | | | | | [phone] | | | | | | | | +--------+---------+ + + + documented as of this encounter Visit Diagnoses Not on filedocumented in this encounter"
--- OUTSIDE RECORDS SUMMARY | ~2019-02-28 | XMS | Encounter Summary ---
Demographics + + + | Address | [address] | | | [place] [address] | + + + | Home Phone [...] Providers + +------+ + | Care Data Security Consultant Name | Role | Phone | [...] [address] | breath) | | | | [place], | [place] | | | | | [place] [address] | [address] | | | | | [phone] | | | +--------+ + + + [...] [place] | | | | | | [address] | | | | | | | | +--------+---------+ + + + | 11/24/ | Office | Cardiology | [place], | | | 2020 | Visit | | SINDHU Erickson [address] | | | | | | [place], | | | | | | [place] [address] | | | | | | [phone] | | | | | | | | +--------+---------+ + + + documented as of this encounter Visit Diagnoses Not on filedocumented in this encounter"
--- OUTSIDE RECORDS SUMMARY | ~2019-02-28 | XMS | Encounter Summary ---
Demographics + + + | Address | [address] | | | [place] [address] | + + + | Home Phone [...] Providers + +------+ + | Care Health Safety Engineer Name | Role | Phone | [...] Description | +--------+---------+ + + + | 09/25/ | Office | [facility] | [place], | Chest pain, | | 2016 | Visit | CARDIOLOGY [address] | SINDHU Erickson [address] | unspecified type | | | | [place], | [place], | (Primary Dx); | | | | [place] [address] | [place] [address] | Paroxysmal atrial | | | | [phone] | [phone] | tachycardia (HCC); | | | | | | Palpitations | +--------+---------+ + + + Social History [...] + + + | Blood Pressure | 118/74 | 09/26/2015 10:39 AM | | | | | PDT | | + + + + + | Pulse | 72 | 09/26/2015 10:39 AM | | | | | PDT | | + + + + + | Temperature | - | - | | + + + + + | Respiratory Rate | 16 | 09/26/2015 10:39 AM | | | | | PDT | | + + + + + | Oxygen Saturation | - | - | | + + + + + | Inhaled Oxygen | - | - | | | Concentration | | | | + + + + + | Weight | 79.4 kg (175 lb) | 09/26/2015 10:39 AM | | | | | PDT | | + + + + + | Height | 157.5 cm (5' 2") | 09/26/2015 10:39 AM | | | | | PDT | | + + + + + | Body Mass Index | 32.01 | 09/26/2015 10:39 AM | | | | | PDT [...] encounter Progress Notes Georgina Elizabeth ARNP - 09/26/2015 10:31 AM PDTFormatting of this note might be different f rom the original. PATIENT NAME: Rosario Malik : 1965: AGE: 50 y.o. PRIMARY CARE: Juan Cherry DO OUTPATIENT FOLLOW UP VISIT Date of Service: 09/26/2015 HISTORY OF PRESENT ILLNESS: Rosario Malik is a 50 y.o. female with a history of non-cardiac chest pain, inapprop riate atrial tachycardia, paroxysmal atrial tachycardia with palpitations, emphysema, hypoth yroidism obstructive sleep apnea and nocturnal hypoxemia and bipolar disorder. She is being seen today for follow up noncardiac chest pain and atrial tachycardia with bradycardia. She was last seen 09/05/2015 at which time she was schedule for a Holter monitor and to [facility] to come to discuss results. Since that time, she states that she has been consistentl y taking her propranolol on a regular basis. She states that her chest pain has been "much better". She feels that her cardiac symptoms have been more "quiet and not bothering him as much". It was noted that she was having bradycardic episodes when she was asleep in the mi ddle of the night. Patient states that she is due to have her BiPAP checked and she is plan hanny on having that done at the end of the month. She hasn't had much symptoms with her pal pitations. She is getting ready to go to [place] to be evaluated in [place] for a stomach/a bdominal surgery. Cardiac-garcia she feels that she is an "a more stable place". She is tryi ng to stay more active and the days she has a little bit more energy she tries to do more ou tdoor activities. Continues using her BiPAP on a regular basis. MEDICAL, SURGICAL, AND PERSONAL HISTORY Past Medical, [...] months. Please send order to [facility]. 1 each 0 Respiratory Therapy Supplies [...] palpitations and leg swelling. Neurological: Positive for dizziness. Negative for weakness. Lightheaded = No OBJECTIVE: PHYSICAL EXAM BP 118/74 mmHg | Pulse 72 | Resp 16 | [...] led by another provider- Dr. Mcdonough) from 09/05/2015. LAB RESULTS reviewed during visit today primarily from [facility]: LIPID No results found for: CHOL, TRIG, [...] PLTEX 370 07/11/2014 I reviewed records from [facility] for office visit on 09/05/2015 which is summarized in the HPI. Holter Monitor 09/05/15, shows underlying normal sinus rhythm with rate 42-107 BPM, average rate 56, there were 983 runs of bradycardia with minimum rate 35 BPM, no pauses, very rare PAC s, 11 atrial couplets and 5 runs of atrial tachycardia, the longest 37 beats with a ma ximum rate of 139 BPM, very rare PVC s from 2 different morphologies, patient stated she h ad no symptoms and therefore no diary was returned. Above data and testing is reviewed this [...] She was seen at the ED of [facility] 3 weeks ago and again 1 [...] y arteries, LVEF 60%. D. Today, patient has had no further episodes of angina. She tries to remain active. Sh e has had no increase in dyspnea more than her baseline. She is in a class II of [employer] functional class. There is no signs [...] and ventricular function don e at the [facility]. LVEF 78%. C. Holter Monitor 08/16/13 [...] normal sinus rhythm with rate 42-107 BPM, ave rage rate 56, there were 983 runs of bradycardia with minimum rate 35 BPM, no pauses, very r are PAC s, 11 atrial couplets and 5 runs of atrial tachycardia, the longest 37 beats with a maximum rate of 139 BPM, very rare PVC s from 2 different morphologies, patient stated s he had no symptoms and therefore no diary was returned. F. Today, patient is a normal sinus rhythm with a heart rate of 60 bpm she has had no syn cope or near syncope episode but she does have episodes of tiredness and fatigue. She efrain nues to try to be active. It is noticed that her bradycardia is more present at night and s he will be going in the next couple weeks to have her BiPAP checked since this may be relate d to her sleep apnea. 2. Emphysema/COPD: A. She is on oxygen. Seen by Dr. Sandoval in pulmonology. She would benefit from going to cardiopulmonary rehab. 3. Hypothyroidism 4. Obstructive sleep apnea and nocturnal hypoxemia A. She is utilizing BiPAP with no oxygen and she would be evaluated in the next couple wee ks to see if she needs to get back on her oxygen. PLAN: 1. She will go back to sleep medicine and be evaluated for the use of her BiPAP and in nee d or not of having supplemental oxygen since she is having bradycardic episodes at night. Otherwise, she will continue same therapeutic medical regimen. She will continue trying to increase her physical activity and exercise. 2. She will follow up in 6 months, or sooner with concerns. Portions of this chart may have been created with [employer] voice recognition software. Occasi onal wrong-word or [...] [place] | | | | | | [address] | | | | | | | | +--------+---------+ + + + | 11/24/ | Office | Cardiology | [place], | | | 2019 | Visit | | SINDHU Erickson [address] | | | | | | [place], | | | | | | [place] [address] | | | | | | [phone] | | | | | | | | +--------+---------+ + + + documented as of this encounter Visit Diagnoses + + | Diagnosis | + + | Chest pain, unspecified type - Primary | + + | Paroxysmal atrial tachycardia (HCC) Paroxysmal supraventricular tachycardia | + + | Palpitations | + + documented in this encounter
--- OUTSIDE RECORDS SUMMARY | ~2019-02-28 | XMS | Encounter Summary ---
Demographics + + + | Address | [address] | | | [place] [address] | + + + | Home Phone [...] Providers + +------+ + | Care Director Style Name | Role | Phone | + [...] | | CARDIOLOGY [address] | Georgina, DIAMOND BLENDER [address] | tachycardia (HCC); | | | | [place], | [place], | Encounter for lipid | | | | [place] [address] | [place] [address] | screening for | | | | [phone] | [phone] | cardiovascular | | | | | [...] [place] | | | | | | [address] | | | | | | | | +--------+---------+ + + + | 11/24/ | Office | Cardiology | [place], | | | 2019 | Visit | | SINDHU Erickson [address] | | | | | | [place], | | | | | | [place] [address] | | | | | | [phone] | | | | | | | | +--------+---------+ + + + documented as of this encounter Visit Diagnoses + + | Diagnosis | + + | Paroxysmal atrial tachycardia (HCC) Paroxysmal supraventricular tachycardia | + + | Encounter for lipid screening for cardiovascular disease | + + documented in this encounter"
--- OUTSIDE RECORDS SUMMARY | ~2019-02-28 | XMS | Encounter Summary ---
Demographics + + + | Address | [address] | | | [place] [address] | + + + | Home Phone [...] Team Providers + +------+ + | Care Cover Stripper Name | Role | Phone | + +------+ + | Juan Cherry DO | PCP | | + +------+ + Reason for Visit + + + | Reason | Comments | + + + | Follow-up | Tachyarrhythmia | + + + | Results | 48 hour Holter monitor 08/12/2013 ([facility]) | + + + | Palpitations | | + + + Encounter Details +--------+ + + + + | Date | Type | Department | Care Team | Description | +--------+ + + + + | 10/05/ | Off-Site | [facility] [place] | Jared Mcdonough, | Palpitations | | 2013 | Visit | CARDIOLOGY [address] | [address] [place] | (Primary Dx); | | | | [place], | 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 Patient denies chest [...] sleep apnea COPD (chronic obstructive pulmonary disease) ([facility]) Healthcare maintenance Preventative health care GARRY (obstructive sleep apnea) Multiple personality disorder GERD (gastroesophageal reflux disease) Diverticulosis Insomnia Sprain of chest wall Benign neoplasm of pituitary gland and craniopharyngeal duct (pouch) ([facility]) Status post total hysterectomy Irritable colon Hypoxemia ([facility]) Allergic rhinitis Tachycardia Palpitations Tachyarrhythmia CURRENT MEDICATIONS [...] Take by mouth Daily. Respiratory Therapy Supplies [facility] Incentive spirometer. Please provide instructions in use. Dx: 848.8 MADELEINE: 3 months 1 each 99 Respiratory Therapy Supplies [facility] Please provide patient with necessary CPAP supplies [...] and ventricular function don e at the [facility]. LVEF 78%. C. Holter Monitor [...] She is in a class II of [employer] functional class. There is [...] patient will be referred to Dr. Ding, rn documentation specialist at [facility] for PAT ablati on 3. Followup in 3 months Electronically signed by: Jared Mcdonough MD [facility] 10/05/2013 11:25 Portions of this chart may have been created with [employer] voice recognition software. Occasi onal wrong-word or [...] | | | | | | [place] [address] | | | | | | [phone] | | | | | | | | +--------+---------+ + + + documented as of this encounter Visit Diagnoses + + | Diagnosis | + + | Palpitations - Primary | + + | Paroxysmal atrial tachycardia (HCC) Paroxysmal supraventricular tachycardia | + + documented in this encounter
--- OUTSIDE RECORDS SUMMARY | ~2019-02-28 | XMS | Encounter Summary ---
Demographics + + + | Address | [address] | | | [place] [address] | + + + | Home Phone [...] Team Providers + +------+ + | Care Bending Press Operator Name | Role | Phone | + +------+ + | Juan Cherry DO | PCP | | + +------+ + Encounter Details +--------+---------+ + + + | Date | Type | Department | Care Team | Description | +--------+---------+ + + + | 06/06/ | Office | [facility] | Jared Mcdonough, | Chronic obstructive | | 2017 | Visit | [facility] | [address] [place] | pulmonary disease, | | | | REHABILITATION [address] | [place], | unspecified COPD | | | | [address] [place] | [place] [address] | type (HCC) (Primary | | | | [place] [address] | [phone] | Dx); Pulmonary | | | | [phone] | | emphysema, | | | | [...] of this encounter Progress Desean Wheeler - 06/06/2016 3:12 PM PDT [facility] [address] [facility] [address] Cardiac Rehab Date: 06/06/2016 Patient Information Patient Name: Rosario [...] | | | | [address] [place] [place] | | | | | | [address] | | | | | | | | +--------+---------+ + + + | 10/01/ | Office | Cardiology | [place], | | | 2019 | Visit | | SINDHU Erickson [address] | | | | | | [place], | | | | | | [place] [address] | | | | | | [phone] | | | | | | | | +--------+---------+ + + + documented as of this encounter Visit Diagnoses + + | Diagnosis | + + | Chronic obstructive pulmonary disease, unspecified COPD type (HCC) - Primary | + + | Pulmonary emphysema, unspecified emphysema type (HCC) | + + documented in this encounter"
--- OUTSIDE RECORDS SUMMARY | ~2019-02-28 | XMS | Encounter Summary ---
Demographics + + + | Address | [address] | | | [place] [address] | + + + | Home Phone [...] Providers + +------+ + | Care Bench Assembler Battery Name | Role | Phone | + +------+ + | Juan Cherry DO | PCP | | + +------+ + Encounter Details +--------+ + + + + | Date | Type | Department | Care Team | Description | +--------+ + + + + | 04/15/ | Orders Only | [facility] [place] | Brian Miranda | Other specified | | 2013 | | OCCUPATIONAL HEALTH | MD [address] | sites of sprains and | | | | [place] [address] [place] | strains (Primary | | | | [address] [place] | [place] [address] | Dx) | | | | [facility], [place] | [phone] | | | | | [address] | | | | | | [phone] | | | +--------+ + + + [...] 03/31/ | Office | Pulmonology | Mukul Clakr MD | | | 2019 | Visit | | [address] | | | | | | [place] | | | | | | [address] | | | | | | | | +--------+---------+ + + + | 11/24/ | Office | Cardiology | [place], | | | 2019 | Visit | | SINDHU Erickson [address] | | | | | | [place], | | | | | | [place] [address] | | | | | | [phone] | | | | | | | | +--------+---------+ + + + documented as of this encounter Visit Diagnoses + + | Diagnosis | + + | Other specified sites of sprains and strains - Primary | + + documented in this encounter"
--- OUTSIDE RECORDS SUMMARY | ~2019-02-28 | XMS | Encounter Summary ---
Demographics + + + | Address | [address] | | | [place] [address] | + + + | Home Phone [...] Team Providers + +------+ + | Care Tag Machine Operator Name | Role | Phone | + +------+ + | Juan Cherry DO | PCP | | + +------+ + Encounter Details +--------+ + + + + | Date | Type | Department | Care Team | Description | +--------+ + + + + | 09/09/ | Hospital | [facility] | Conversion | Pain | | 2015 | Encounter | CONVERSION [address] | Transaction, | | | | | [address] | Provider Unknown | | | | | [place], [place] | [phone] | | | | | [address] | | | | | | [phone] | | | +--------+ + + + [...] | | | | [place] | | | | | | [address] | | | | | | | | +--------+---------+ + + + | 11/24/ | Office | Cardiology | [place], | | | 2019 | Visit | | SINDHU Erickson [address] | | | | | | [place], | | | | | | [place] [address] | | | | | | [phone] | | | | | | | | +--------+---------+ + + + documented as of this encounter Procedures + +--------+ + + + | Procedure Name | Priori | Date/Time | Associated Diagnosis | Comments | | | ty | | | | + +--------+ + + + | XR CHEST 1 VIEW | Routin | 01/20/2014 | | Results for this | | | e | 1:10 AM | | procedure are in the | | | | PST | | results section. | + +--------+ + + + documented in this encounter Results XR Chest 1 Vw (01/20/2014 1:10 AM PST) + + | Specimen [...]
--- OUTSIDE RECORDS SUMMARY | ~2019-02-28 | XMS | Encounter Summary ---
Demographics + + + | Address | [address] | | | [place] [address] | + + + | Home Phone [...] Team Providers + +------+ + | Care Piercing Specialist Name | Role | Phone | [...] W | | | | | [place], | [place], | | | | | [place] [address] | [place] [address] | | | | | [phone] | [phone] | | | | | | | [...] | | | | | | [place] [address] | | | | | | [phone] | | | | | | | | +--------+---------+ + + + documented as of this encounter Visit Diagnoses Not on filedocumented in this encounter"
--- OUTSIDE RECORDS SUMMARY | ~2019-02-28 | XMS | Encounter Summary ---
Demographics + + + | Address | [address] | | | [place] [address] | + + + | Home Phone [...] Team Providers + +------+ + | Care Feather Washer Name | Role | Phone | [...] + | 06/11/ | Telephone | [facility] | Andriy Weber | Appointment | | 2018 | | [address] | MD [address] | | | | | [place] | [facility] | | | | | [address] | [place] [address] | | | | | [phone] | [phone] | | | | | | | [...] [place] | | | | | | [address] | | | | | | | | +--------+---------+ + + + | 11/24/ | Office | Cardiology | [place], | | | 2019 | Visit | | SINDHU Erickson [address] | | | | | | [place] | | | | | | [place] [address] | | | | | | [phone] | | | | | | | | +--------+---------+ + + + documented as of this encounter Visit Diagnoses Not on filedocumented in this encounter"
--- OUTSIDE RECORDS SUMMARY | ~2019-02-28 | XMS | Encounter Summary ---
Demographics + + + | Address | [address] | | | [place] [address] | + + + | Home Phone [...] Providers + +------+ + | Care Anode Worker Name | Role | Phone | [...] | | | Services | Medicine | LUIS | Offenstein, | [facility] | | | Required | | (obstructive | Loreta B, | Disorder [address] | | | | | sleep | MD [address] | | | | | apnea) | [address] | [place], | | | | | Central | [place], | [place] [address] | | | | | sleep apnea | [place] [address] | Phone: | | | | | | | [phone] | | | | | | | Fax: | | | | | | | [phone] | +--------+ + + + + + Reason for Visit + + + | Reason | Comments | + + + | Follow-up | | + + + Encounter Details +--------+---------+ + + + | Date | Type | Department | Care Team | Description | +--------+---------+ + + + | 03/26/ | Office | [facility] [place] | Offenstein, | LUIS (obstructive | | 2012 | Visit | PULMONARY [address] | Loreta Alonso MD | sleep apnea) | | | | [place], | | (Primary Dx); | | | | [place] [address] | | Central sleep apnea; | | | | [phone] | | COPD exacerbation | | | | | | (HCC); Insomnia; | | | | | | Tobacco abuse | +--------+---------+ + + + Social History [...] + | Tobacco Cessation: Ready to Quit: No; Counseling Given: Yes | + + + [...] + + + | Blood Pressure | 100/60 | 03/26/2012 1:11 PM | | | | | PST | | + + + + + | Pulse | 81 | 03/26/2012 1:11 PM | | | | | PST | | + + + + + | Temperature | - | - | | + + + + + | Respiratory Rate | - | - | | + + + + + | Oxygen Saturation | 97% | 03/26/2012 1:11 PM | | | | | PST | | + + + + + | Inhaled Oxygen | - | - | | | Concentration | | | | + + + + + | Weight | 58.5 kg (128 lb 14.4 | 03/26/2012 1:11 PM | | | | oz) | PST | | + + + + + | Height | 158.8 cm (5' 2.52") | 03/26/2012 1:11 PM | | | | | PST | | + + + + + | Body Mass Index | 23.19 | 03/26/2012 1:11 PM | | | | | PST | | + + + + + documented in this encounter Patient Instructions Patient Instructions Loreta London MD - 03/26/2012 2:10 PM PSTDo PAP titration. I f you don't hear about results about two weeks after, give us a call. Continue insomnia instructions. documented in this encounter Progress Notes Loreta London MD - 03/26/2012 1:50 PM PSTFormatting of this note might be differe nt from the original. Sleep Follow Up HPI Rosario Malik is a 47 y.o. female patient of Juan Cherry here today for follow up of obstructive sleep apnea. She notes that she has been wearing their CPAP. Their compliance has been better. She has had mask issues, and got a new mask. The last two days the new mask has been giving her issu es. They feel like they are more rested since starting on CPAP. She notes that she is subst antially less drowsy. She notes that she has been disregarding all the advice she was given and napping twice a d ay and then actually sleeping better at night. She has slept for up to 4-5 hours solidly at night. She is napping for 1-2 hours during the day and wearing his CPAP most of the time whe n she naps. She has been keeping a sleep diary. She is seeing Maxim in the sleep center. She is going to bed at 11:30pm, and is falling asleep around 11:45pm. She is getting out of bed between 4-6:30am. If she wakes up at 4am, she gets up and feeds her animals, and if she is tired, she goes back to bed. If she is not tired, she gets up and starts her day. They are not having nasal congestion. They have the humidity on the machine set at 5.5. She has been having a cough and congestion, and thinks she has a URI. This has been going o n for a week now. She has not had fevers with this. She is taking her Advair twice a day and then her as needed inhaler. 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 [employer] Social History Main Topics Smoking status: [...] Allergy Medications: Outpatient Encounter Prescriptions as of 03/26/2012 Medication Sig Dispense Refill Multiple Vitamins-Minerals (MULTIVITAMIN PO) Take by mouth [...] every 4-6 hours as needed Objective BP 100/60 | Pulse 81 | Ht 1.588 m (5' 2.52") | Wt 58.469 kg (128 lb 14.4 oz) | BMI 23.19 kg /m2 | SpO2 97% General Appearance: Alert, cooperative, [...] accessory muscle use, breath sounds are diminished bilaterally,one area of whee zing in lower right lung , no crackles or rhonchi Chest Wall: No deformity Heart: Regular rate and rhythm, no murmur, rub or gallop Abdomen: Soft, non-tender, non-distended Extremities: No cyanosis, clubbing, or edema Pulses: Radial pulses 2+ and symmetric Skin: Warm and dry Lymph nodes: Cervical and supraclavicular nodes normal Neurologic: Gait normal Dates: 02/25/12-03/25/12 Baseline AHI: 47.1 CPAP Pressure: 8-12 cmH2O Median Titrated Pressure: 10.6 cmH2O 95%tile Pressure: 11.9 cmH2O Maximum Pressure: 12.0 cmH2O AHI: 14.3 events/hour Total number of days: 30 Number of days used: 29 Median daily usage: 3:57 hours Percent of days used for more than 4 hours: 43 % Median leak: 3.6 L/min Assessment /Plan Ms. Malik was seen today for follow-up of complex sleep apnea. Diagnoses and associated orders for this visit: Luis (obstructive sleep apnea) and Central sleep apnea She is following with Maxim and her compliance has improved. She is up to a median of 3:57 a night, but her AHI remains 14. I think she needs her repeat study to see if she needs an al ternate modality of treatment. I have discussed the download from their PAP machine in detail. This shows that their slee p apnea is not well controlled, with an AHI of 14.3. It does show that their leaks are well controlled. - Ambulatory Referral to Sleep Studies; Future Copd exacerbation She has had increased cough and mucous production. I would suggest a short course of predni sone, which feels will not interfere with her sleep. I will treat with 40mg for 5 days. I am going to defer on antibiotics given the lack of purulent phlegm. - predniSONE (DELTASONE) 20 mg tablet; Take 2 tablets by mouth Daily for 5 days. Insomnia I stressed the need to stick to a strict bed time which would set her wake time, and it shravan nds like she has been able to do this. I am not that thrilled that she is getting up at 4am and being up for the day. I suspect un treated psychiatric issues. This is difficult to deal with, as I suspect a certain amount of denial. I discouraged 1-2 hour naps twice a day desp ite the fact that she feels it is helping. I encouraged her to gradually wean herself off of these, tapering down to no more than a 20 minute nap daily. I agree a sleep diary is a good idea, but I also think the fact that she is enjoying sleep is great. Tobacco abuse She has cut back on her cigarette use though continues to smoke. She is aware of the need t o quit. Return to clinic in 6 weeks, or sooner with concerns. 30 minutes were spent with Ms. Malik with greater than 50% spent in counseling and coordin ation of care. CC: Juan Cherry documented in t his [...] [place] | | | | | | [address] | | | | | | | | +--------+---------+ + + + | 11/24/ | Office | Cardiology | [place], | | | 2019 | Visit | | SINDHU Erickson [address] | | | | | | [place], | | | | | | [place] [address] | | | | | | [phone] | | | | | | | | +--------+---------+ + + + + + +--------+ + + | Name | Type | Priori | Associated Diagnoses | Order Schedule | | | | ty | | | + + +--------+ + + | Ambulatory Referral | Outpatient | Routin | LUIS (obstructive | 1 Occurrences | | to Sleep Studies | Referral | e | sleep apnea) | starting 03/26/2012 | | | | | Central sleep apnea | until 03/26/2013 | + + +--------+ + + documented as of this encounter Visit Diagnoses + + | Diagnosis | + + | LUIS (obstructive sleep apnea) - Primary Obstructive sleep apnea (adult) (pediatric) | + + | Central sleep apnea Unspecified sleep apnea | + + | COPD exacerbation (HCC) Obstructive chronic bronchitis with exacerbation | + + | Insomnia Insomnia, unspecified | + + | Tobacco abuse Tobacco use disorder | + + documented in this encounter
--- OUTSIDE RECORDS SUMMARY | ~2019-02-28 | XMS | Encounter Summary ---
Demographics + + + | Address | [address] | | | [place] [address] | + + + | Home Phone [...] Providers + +------+ + | Care Exercise Physiologist Certified Name | Role | Phone | + [...] + + | 11/04/ | Office | [facility] | Daryl Hargrove | Axillary abscess | | 2015 | Visit | CARE [address] | Ernie Sanabria MD | (Primary Dx) | | | | [place], [place] | [address] | | | | | [address] | [place] [facility] | | | | | [phone] | [address] | | | | | [...] | | | | | | [place] [address] | | | | | | [phone] | | | | | | | [...] [address] | [place] | [phone] | | [facility] | | [address] | | | - LABORATORY | | | | + + + + + documented in this encounter Visit Diagnoses + + | Diagnosis | + + | Axillary abscess - Primary Cellulitis and abscess of upper arm and forearm | + + documented in this encounter
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
--- OUTSIDE RECORDS SUMMARY | ~2019-02-28 | XMS | Encounter Summary ---
Demographics + + + | Address | [address] | | | [place] [address] | + + + | Home Phone [...] Providers + +------+ + | Care Sports Administrator Name | Role | Phone | [...] [address] | | | | | [place], | [place] | | | | | [place] [address] | [address] | | | | | [phone] | | | +--------+--------+ + + + [...] | | | | | | [place] [address] | | | | | | [phone] | | | | | | | | +--------+---------+ + + + documented as of this encounter Visit Diagnoses Not on filedocumented in this encounter"
--- OUTSIDE RECORDS SUMMARY | ~2019-02-28 | XMS | Encounter Summary ---
Demographics + + + | Address | [address] | | | [place] [address] | + + + | Home Phone [...] Team Providers + +------+ + | Care Mobile Sales Consultant Name | Role | Phone [...] | obstruction, not | | | | [place], | | elsewhere classified | | | | [place] [address] | | ([facility]) | | | | [phone] | | | +--------+ + + + [...] [place] | | | | | | [address] | | | | | | | | +--------+---------+ + + + | 11/24/ | Office | Cardiology | [place], | | | 2019 | Visit | | SINDHU Erickson [address] | | | | | | [place], | | | | | | [place] [address] | | | | | | [phone] | | | | | | | | +--------+---------+ + + + documented as of this encounter Visit Diagnoses + + | Diagnosis | + + | Chronic airway obstruction, not elsewhere classified | + + documented in this encounter"
--- OUTSIDE RECORDS SUMMARY | ~2019-02-28 | XMS | Encounter Summary ---
Demographics + + + | Address | [address] | | | [place] [address] | + + + | Home Phone [...] Providers + +------+ + | Care Electric Accounting Machine Operator Name | Role | Phone | + +------+ + | Juan Cherry DO | PCP | | + +------+ + Encounter Details +--------+ + + + + | Date | Type | Department | Care Team | Description | +--------+ + + + + | 09/09/ | Hospital | [facility] | Conversion | Pain | | 2015 | Encounter | CONVERSION [address] | Transaction, | | | | | [address] | Provider Unknown | | | | | [place], [place] | [phone] | | | | | [address] | | | | | | [phone] | | | +--------+ + + + [...] | | | | | order to [facility]. | | | | | + [...] | | | | send order to [facility] | | | | | | [...] | | | | [address] [place] | | | | | | [address] | | | | | | | | +--------+---------+ + + + | 11/24/ | Office | Cardiology | [place], | | | 2019 | Visit | | SINDHU Erickson [address] | | | | | | [place], | | | | | | [place] [address] | | | | | | [phone] | | | | | | | | +--------+---------+ + + + documented as of this encounter Procedures + +--------+ + + + | Procedure Name | Priori | Date/Time | Associated Diagnosis | Comments | | | ty | | | | + +--------+ + + + | XR CHEST 2 VIEWS | Routin | 04/05/2013 | | Results for this | | | e | 12:50 AM | | procedure are in the | | | | PST | | results section. | + +--------+ + + + documented in this encounter Results XR Chest 2 Vws (04/05/2013 12:50 AM PST) + + | Specimen [...]
--- OUTSIDE RECORDS SUMMARY | ~2019-02-28 | XMS | Encounter Summary ---
Demographics + + + | Address | [address] | | | [place] [address] | + + + | Home Phone [...] Team Providers + +------+ + | Care Fruit Harvester Machine Operator Name | Role | Phone [...] Groin pain, | MD Jared | [address] [place] | | | | | right Hx | [address] | [place], | | | | | of coronary | [address] | [place] [address] | | | | | angiogram | [place], | Phone: | | | | | Peritoneal | [place] [address] | [phone] | | | | | bleeding | Phone: | Fax: | | | | | Procedures | [phone] | [phone] | | | | | CT Abdomen | Fax: | | | | | | Pelvis wo | [phone] | | | | | | Contrast [...] Groin pain, | MD Jared | [address] [place] | | | | | right Hx | [address] | [place], | | | | | of coronary | [address] | [place] [address] | | | | | angiogram | [place], | Phone: | | | | | Peritoneal | [place] [address] | [phone] | | | | | bleeding | Phone: | Fax: | | | | | Procedures | [phone] | [phone] | | | | | CT Abdomen | Fax: | | | | | | Pelvis wo | [phone] | | | | | | Contrast | | | +--------+--------+ + + + + Encounter Details +--------+ + + + + | Date | Type | Department | Care Team | Description | +--------+ + + + + | 03/08/ | Hospital | [facility] | Jared Mcdonough, | Groin pain, right; | | 2014 | Encounter | [facility] [address] | [address] | Hx of coronary | | | | [place], | [place], | angiogram; | | | | [place] [address] | [place] [address] | Peritoneal bleeding | | | | [phone] | [phone] | | | | | | | [...] | | send order to [facility] | | | | [...] [place] | | | | | | [address] | | | | | | | | +--------+---------+ + + + | 11/24/ | Office | Cardiology | [place], | | | 2020 | Visit | | SINDHU Erickson [address] | | | | | | [place], | | | | | | [place] [address] | | | | | | [phone] | | | | | | | [...] Procedure Note | + + | Reed, Roger Results In - 03/08/2014 10:09 AM PST [...] + | MISCELLANEOUS LAB | | | [phone] | + +---------+ + + | MISCELANIOUS LAB | | | [phone] | + +---------+ + + documented in [...]
--- OUTSIDE RECORDS SUMMARY | ~2019-02-28 | XMS | Encounter Summary ---
Demographics + + + | Address | [address] | | | [place] [address] | + + + | Home Phone [...] Providers + +------+ + | Care Radiology Therapist Name | Role | Phone | + +------+ + PCP | Unavailable | + +------+ + Encounter Details +--------+ + + + + | Date | Type | Department | Care Team | Description | +--------+ + + + + | 05/11/ | Hospital | [facility] | Berna Vizcaino MD | Special screening | | 2010 | Encounter | CONVERSION DEP [address] | [address] | for osteoporosis | | | | [address] | [place] [address] | | | | | [place], [place] | [phone] | | | | | [address] | | | | | | [phone] | | | +--------+ + + + [...] | | | | | | [place] [address] | | | | | | [phone] | | | | | | | | +--------+---------+ + + + documented as of this encounter Procedures + +--------+ + + + | Procedure Name | Priori | Date/Time | Associated Diagnosis | Comments | | | ty | | | | + +--------+ + + + | DEXA BONE DENSITY | Routin | 05/11/2010 | | Results for this | | STUDY KETURAH DOSS | e | 11:56 AM | | procedure are in the | | ASSESSMENT | | PDT | | results section. | + +--------+ + + + documented in this encounter Results DEXA Bone Density wo Odalis Doss Assmt (05/11/2010 11:56 AM PDT) + + | Specimen | + + | | + + + + + | Narrative | Performed At | + + + | [facility] [address] Ph: | | | Patient Name: JADYN SCHMITZ Date of : | | | 1965 Medical Record: [id number] Account: [id number] | | | Exam Date/Time: 05/11/2010 11:30 Ordering | | | Physician: BERNA Finley Detail: 155 Exam Description: | | | DEXA SCAN | | | BONE | | | DENSITOMETRY 05/11/2010 11:30 AM HISTORY The patient is a 45 | | | year old postmenopausal female with a family history of osteoporosis. | | | The patient reports to have taken Calcium, Vitamin D and Thyroid | | | medication. The patient also reports having Asthma, Osteoarthritis | | | and Inflammatory Bowel Disease. The patient does not perform | | | weightbearing exercise and does not consume dairy products regularly. | | | COMPARISON No priors are available for comparison. TECHNIQUE | | | A bone mineral analysis was performed on the lumbar spine. The | | | patient was scanned in the anterior projection and laprqw-ql-cyvbzhqt | | | values were drawn about the vertebral segments of L1 through L4 at | | | the levels where accurate assessment was possible. A bone mineral | | | analysis was also performed on the left hip with dluzge-lw-gelahule | | | areas including the femoral neck measured. From this data, a T score | | | and a Z score were calculated. FINDINGS The AP lumbar and left | | | hip scans are technically adequate. Date of Study: 05/11/2010 | | | 11:30 AM L1-L4 Vertebral Bodies BMD 0.922, t-score -1.1, z-score | | | -0.8 PROXIMAL LEFT FEMUR BMD 0.929, t-score -0.1, z-score | | | 0.1 IMPRESSION 1. Bone density measurements of the lumbar | | | spine consistent with osteopenia. 2. Bone density measurements | | | of the left hip consistent with normal bone density. | | | Osteopenia indicates that there is some increased risk of fracture. | | | Weightbearing exercise and adequate dietary calcium intake are | | | recommended. Further medical management should also be considered. | | | Follow-up assessment in 24 months is recommended. NOTE: | | | Assessment involves low resolution imaging designed to assess for | | | vertebral compression fractures only. World Health Organization | | | Diagnostic Clarification of Osteoporosis Normal Diagnosis: t-score | | | 0.0 to -1.0 Osteopenia Diagnosis: t-score -1.0 to -2.5 | | | Osteoporosis Diagnosis: t-score -2.5 to -5.0 Severe Osteoporosis | | | Diagnosis: -2.5 to -5.0 plus clinical fracture *The T score | | | represents how many standard deviations by which the patient's bone | | | mass differs from the young normal (age 30) sex-matched reference | | | standard. The Z score is the standard deviation difference as compared | | | with an age and sex-matched reference standard (average for age). | | | The Z score is not used in the diagnostic classification. Read by | | | Kevin Robins MD on 05/14/2010 7:44 PM Electronically | | | signed by Kevin Robins MD on 05/15/2010 9:46 AM | | + + + + + | Procedure Note | + + | Roger Mcbride Conversion - 10/17/2018 5:21 PM PDT | | [facility] | | [facility] [address] | | | | | | Patient Name: JADYN SCHMITZ W | | Date of : 1965 | | Medical Record: [id number] | | Account: [id number] | | | | | | Exam Date/Time: 05/11/2010 11:30 | | Ordering Physician: BERNA VIZCAINO | | Order Detail: 155 | | Exam Description: DEXA SCAN | | | | BONE DENSITOMETRY 05/11/2010 11:30 AM | | | | HISTORY | | The patient is a 45 year old postmenopausal female with a family history of | | osteoporosis. The patient reports to have taken Calcium, Vitamin D and | | Thyroid medication. The patient also reports having Asthma, Osteoarthritis | | and Inflammatory Bowel Disease. The patient does not perform weightbearing | | exercise and does not consume dairy products regularly. | | | | COMPARISON | | No priors are available for comparison. | | | | TECHNIQUE | | A bone mineral analysis was performed on the lumbar spine. The patient was | | scanned in the anterior projection and utzbsr-fm-mugtgyhc values were drawn | | about the vertebral segments of L1 through L4 at the levels where accurate | | assessment was possible. A bone mineral analysis was also performed on the | | left hip with pjhcuh-di-kmermhtq areas including the femoral neck measured. | | From this data, a T score and a Z score were calculated. | | | | | | FINDINGS | | The AP lumbar and left hip scans are technically adequate. | | | | Date of Study: 05/11/2010 11:30 AM | | L1-L4 Vertebral Bodies | | BMD 0.922, t-score -1.1, z-score -0.8 | | | | | | | | PROXIMAL LEFT FEMUR | | BMD 0.929, t-score -0.1, z-score 0.1 | | | | | | | | IMPRESSION | | 1. Bone density measurements of the lumbar spine consistent with | | osteopenia. | | | | 2. Bone density measurements of the left hip consistent with normal | | bone density. | | | | | | Osteopenia indicates that there is some increased risk of fracture. | | Weightbearing exercise and adequate dietary calcium intake are recommended. | | Further medical management should also be considered. Follow-up assessment | | in 24 months is recommended. | | | | | | NOTE: Assessment involves low resolution imaging designed to assess for | | vertebral compression fractures only. | | | | World Health Organization Diagnostic Clarification of Osteoporosis | | Normal Diagnosis: t-score 0.0 to -1.0 | | Osteopenia Diagnosis: t-score -1.0 to -2.5 | | Osteoporosis Diagnosis: t-score -2.5 to -5.0 | | Severe Osteoporosis Diagnosis: -2.5 to -5.0 plus clinical fracture | | | | *The T score represents how many standard deviations by which the patient's | | bone mass differs from the young normal (age 30) sex-matched reference | | standard. The Z score is the standard deviation difference as compared with | | an age and sex-matched reference standard (average for age). The Z score is | | not used in the diagnostic classification. | | | | Read by Kevin Robins MD on 05/14/2010 7:44 PM | | | | | | | + + documented in this encounter Visit Diagnoses + + | Diagnosis | + + | Special screening for osteoporosis | + + documented in this encounter"
--- OUTSIDE RECORDS SUMMARY | ~2019-02-28 | XMS | Encounter Summary ---
Demographics + + + | Address | [address] | | | [place] [address] | + + + | Home Phone [...] Author | [facility] | | | and [place] | + [...] Team Providers + +------+ + | Care Joiner Helper Name | Role | Phone | [...] + | 05/28/ | Refill | [facility] | Kade Hoffman MD | Medication Problem | | 2013 | | [facility] | [address] [facility] | ([facility]) | | | | [place] [address] | [place] [address] | | | | | [address] [facility] | [phone] | | | | | [place], [place] | | | | | | [address] | | | | | | [phone] | | | +--------+--------+ + + + [...] | | | | | | [place] [address] | | | | | | [phone] | | | | | | | | +--------+---------+ + + + documented as of this encounter Visit Diagnoses Not on filedocumented in this encounter"
--- OUTSIDE RECORDS SUMMARY | ~2019-02-28 | XMS | Encounter Summary ---
Demographics + + + | Address | [address] | | | [place] [address] | + + + | Home Phone [...] Providers + +------+ + | Care Cancer Program Coordinator Name | Role | Phone [...] Closed | | Radiology | Diagnoses | Jaime, | [address] | | | | | COPD | MD Kevin | [address] | | | | | (chronic | [address] | [place], | | | | | obstructive | [place] | [place] [address] | | | | | pulmonary | [place], | Phone: | | | | | disease) | [place] [address] | [phone] | | | | | (HCC) | Phone: | Fax: | | | | | Procedures | [phone] | [phone] | | | | | CT Chest wo | Fax: | | | | | | Contrast | [phone] | | +--------+--------+ + + + + Reason for Visit Diagnostic/Screening (Routine) +--------+--------+ + + + + | Status | Reason | Specialty | Diagnoses / | Referred By | Referred To | | | | | Procedures | Contact | Contact | +--------+--------+ + + + + | Closed | | Radiology | Diagnoses | Jaime, | [address] | | | | | COPD | MD Kevin | [address] [place] | | | | | (chronic | [address] | [place], | | | | | obstructive | [place] | [place] [address] | | | | | pulmonary | [place], | Phone: | | | | | disease) | [place] [address] | [phone] | | | | | (HCC) | Phone: | Fax: | | | | | Procedures | [phone] | [phone] | | | | | CT Chest wo | Fax: | | | | | | Contrast | [phone] | | +--------+--------+ + + + + Encounter Details +--------+ + + + + | Date | Type | Department | Care Team | Description | +--------+ + + + + | 11/16/ | Hospital | [facility] | Kevin Sandoval, | COPD (chronic | | 2013 | Encounter | [facility] [address] | [address] [place] | obstructive | | | | [place], | [place], [place] | pulmonary disease) | | | | [place] [address] | [id number] | ([facility]) | | | | [phone] | | | +--------+ + + + [...] | | | | | order to [facility]. | | | | | + [...] | | | | send order to [facility] | | | | | | | [...] [place] | | | | | | [address] | | | | | | | | +--------+---------+ + + + | 11/24/ | Office | Cardiology | [place], | | | 2019 | Visit | | SINDHU Erickson [address] | | | | | | [place], | | | | | | [place] [address] | | | | | | [phone] | | | | | | | | +--------+---------+ + + + documented as of this encounter Procedures + +--------+ + + + | Procedure Name | Priori | Date/Time | Associated Diagnosis | Comments | | | ty | | | | + +--------+ + + + | CT CHEST WO CONTRAST | Routin | 11/16/2013 | COPD (chronic | Results for this | | | e | 9:40 AM | obstructive | procedure are in the | | | | PDT | pulmonary disease) | results section. | | | | | (HCC) | [...] [phone], [phone].) Dictated and Signed by: Sterling Daniels | | MD Jesus Electronically signed: 11/16/2013 [...] + | MISCELLANEOUS LAB | | | [phone] | + +---------+ + + | MISCELANIOUS LAB | | | [phone] | + +---------+ + + documented in this encounter Visit Diagnoses + + | Diagnosis | + + | COPD (chronic obstructive pulmonary disease) (HCC) Chronic airway obstruction, not | | elsewhere classified | + + documented in this encounter
--- OUTSIDE RECORDS SUMMARY | ~2019-02-28 | XMS | Encounter Summary ---
Demographics + + + | Address | [address] | | | [place] [address] | + + + | Home Phone [...] Team Providers + +------+ + | Care E Business Specialist Name | Role | Phone | [...] Reynolds RN | | | | | [place], | | | | | | [place] [address] | | | | | | [phone] | | | +--------+ + + + [...] [place] | | | | | | [id number] | | | | | | | | +--------+---------+ + + + | 11/24/ | Office | Cardiology | [place], | | | 2019 | Visit | | SINDHU Erickson [address] | | | | | | [place] | | | | | | [place] [address] | | | | | | [phone] | | | | | | | | +--------+---------+ + + + documented as of this encounter Visit Diagnoses Not on filedocumented in this encounter"
--- OUTSIDE RECORDS SUMMARY | ~2019-02-28 | XMS | Encounter Summary ---
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 I reviewed the notes from Dr Chris Alarcon in [place], [place].It indicates that patient had CPAP intolerance [...] day f or her COPD through her flute teacher. We performed a CPAP titration study on [...] was inthe high 90%. Mean SpO2 was96%, brennon SpO2 was91%, and amount of total sleep time spen t below SpO2 of 90% was0%.Transcutaneous MY0uisnsd 35-37mmHg during supine wake, and remained between [...] and how this can affect his asleep. Instruc kelley her how to improve her sleep [...] leaking. She doesn't wake up with l silviaking. However, when she wakes up she notices [...] by Nasal route Daily. Yes Historical Pro viderMD fluticasone-salmeterol (ADVAIR HFA) 230-21 MCG/ACT inhaler Inhale [...] continuous. 3 liters while awake Yes Historical Provider, Yinka Witt pantoprazole (PROTONIX) 20 mg tablet Take 40 mg by mouth every morning (before breakfast). Yes Historical Provider, pantoprazole (PROTONIX) 40 mg tablet 09/04/18 Yes Historical Provider, potassium chloride (KLOR-CON M20) 20 mEq ER tablet Take 1 tablet by mouth Daily. 09/21/18 Y SINDHU Dumont predniSONE (DELTASONE) 10 mg tablet Take 10 mg by mouth Daily. Yes Historical Provider, Yinka Witt Respiratory [facility] Please provide patient with necessary CPAP supplies (she did not specify, okay to send order as appropriate) Diagnosis Code(s)327.23 . Length of Need 99 months. Please send order to [facility]. 01/13/13 Yes Loreta London MD Respiratory Therapy Supplies [facility] Change CPAP back to 11-14 cm H2O. All necessary supplies. No oxygen bleed in. Diagnosis Code(s)327.23. Length of Need: Lifetime. Please send order to [facility]. This is not [...] her awakenings at night, I will ask Perkins to check her machine for adjusting humidity [...] this chart may have been created with [employer] voice recognition software. Occasi onal wrong-word or [...] | | | | [place] | | | | | | [address] | | | | | | | | +--------+---------+ + + + | 11/24/ | Office | Cardiology | [place], | | | 2019 | Visit | | SINDHU Erickson [address] | | | | | | [place], | | | | | | [place] [address] | | | | | | [phone] | | | | | | | [...]
--- OUTSIDE RECORDS SUMMARY | ~2019-02-28 | XMS | Encounter Summary ---
Demographics + + + | Address | [address] | | | [place] [address] | + + + | Home Phone [...] Team Providers + +------+ + | Care Poultry Scientist Name | Role | Phone | + +------+ + | Juan Cherry DO | PCP | | + +------+ + Reason for Visit +--------+ + | Reason | Comments | +--------+ + | Fall | | +--------+ + Encounter Details +--------+ + + + + | Date | Type | Department | Care Team | Description | +--------+ + + + + | 03/24/ | Emergency | [facility] | Heriberto, | Closed fracture of | | 2017 | | [facility] | Ozzy Kim MD [address] | nasal bone, initial | | | | CENTER [address] | [address] [place] | encounter (Primary | | | | [place], [place] | [place] [address] | Dx); Fall at home, | | | | [address] | [phone] | initial encounter; | | | | [phone] | | Contusion of left | | | | | | hand including | | | | | | fingers, initial | | | | | | encounter; | | | | | | Concussion, with | | | | | | loss of | | | | | | consciousness of 30 | | | | | | minutes or less, | | | | | | initial encounter | +--------+ + + + + Social [...] + + + | Blood Pressure | 91/69 | 03/24/2016 10:14 AM | | | | | PST | | + + + + + | Pulse | 53 | 03/24/2016 11:06 AM | | | | | PST | | + + + + + | Temperature | 36.3 C (97.3 F) | 03/24/2016 10:04 AM | | | | | PST | | + + + + + | Respiratory Rate | 16 | 03/24/2016 10:04 AM | | | | | PST | | + + + + + | Oxygen Saturation | 96% | 03/24/2016 11:06 AM | | | | | PST | | + + + + + | Inhaled Oxygen | - | - | | | Concentration | | | | + + + + + | Weight | 79.4 kg (175 lb) | 03/24/2016 9:56 AM | | | | | PST | | + + + + + | Height | 157.5 cm (5' 2") | 03/24/2016 9:56 AM | | | | | PST | | + + + + + | Body Mass Index | 32.01 | 03/24/2016 9:56 AM | | | | | PST [...] Discharge Instructions Instructions Ozzy Louis MD - 03/24/2016Call Dr. Longoria's office tomorrow to a rrange follow-up for the nasal bone fracture. Do not blow your nose as it can sometimes worsen the swelling at this point. Use ice on the right side of your face to help with pain and swelling. Call Dr. Rodriguez's office to arrange concussion follow-up AttachmentsThe following attachments cannot be sent through Care Everywhere.CONCUSSION, AFT ER (TANZANIAN)FRACTURE, NOSE, WITH X-RAY (TANZANIAN)documented in this encounter Medications at Time of [...] | send order to [facility] | | | | | | | [facility]. | | | | | [...] | 0 | 10/13/19 | | | Dnwzstprri-PTPI-Amda | mouth as needed. | | | 16 | 7 | | -Cod [id number] MG | | | | | | [...] | 03/31/ | Office | Pulmonology | Muukl Clark MD | | | 2019 | [...] | | | | | | [place] [address] | | | | | | [phone] | | | | | | | | +--------+---------+ + + + + +------+--------+ + + | Name | Type | Priori | Associated Diagnoses | Date/Time | | | | ty | | | + +------+--------+ + + | ED INFORMATION | BALWINDER | Routin | | 03/24/2016 9:55 AM | | EXCHANGE | | e | | PST | + +------+--------+ + + documented as of this encounter Procedures + +--------+ + + + | Procedure Name | Priori | Date/Time | Associated Diagnosis | Comments | | | ty | | | | + +--------+ + + + | CT MAXILLOFACIAL WO | STAT | 03/24/2016 | | Results for this | | CONTRAST | | 10:54 AM | | procedure are in the | | | | PST | | results section. | + +--------+ + + + | CT HEAD WO CONTRAST | STAT | 03/24/2016 | | Results for this | | | | 10:54 AM | | procedure are in the | | | | PST | | results section. | + +--------+ + + + | XR HAND LEFT 3 + VW | STAT | 03/24/2016 | | Results for this | | | | 10:53 AM | | procedure are in the | | | | PST | | results section. | + +--------+ + + + | ED INFORMATION | Routin | 03/24/2016 | | | | EXCHANGE | e | 9:55 AM | | | | | | PST | | | + +--------+ + + + documented in this encounter Results CT Maxillofacial wo Contrast (03/24/2016 10:54 AM [facility]) + + | Specimen | + + | | + + + + + | Narrative | Performed At | + + + | UNENHANCED CT FACIAL BONES 03/24/2016 10:34 AM CLINICAL HISTORY: | [facility] | | FALL AND HEAD INJURY COMPARISON: Head CT from the same day and | | | November 2013 TECHNIQUE: Axial unenhanced images are performed | | | through the facial bones, along with coronal and sagittal | | | reformations. FINDINGS: There is a displaced fracture of the | | | superior right nasal bone, with displacement and depression of the | | | distal fragment. No other fracture is evident. Changes of right | | | maxillary antrectomy and turbinate reduction are again apparent. | | | The paranasal sinuses, middle ear cavities and mastoid air cells | | | are well aerated. Rightward nasal septal deviation persists. There | | | are degenerative changes of the temporomandibular joints, with | | | anterior subluxation and flattening of the articular contour of the | | | left mandibular condyle. Numerous dental caries are present, without | | | conclusive acute dental injury. There is facet hypertrophy | | | involving the imaged cervical spine, without evidence of acute | | | injury. Soft tissue structures are unremarkable. IMPRESSION - | | | 1. DEPRESSED RIGHT NASAL BONE FRACTURE. 2. DEGENERATIVE | | | CHANGES OF THE TEMPOROMANDIBULAR JOINTS. 3. EXTENSIVE DENTAL | | | DISEASE. Images were provided for interpretation on March 24 | | | 2016 at 1050 hours. Results were finalized at 1105 hours. | | | Dictated and Signed by: Aditya Snyder MD Electronically signed: | | | 03/24/2016 11:05 AM | | + + + + + | Procedure Note | + + | Roger Mcbride Results In - 03/24/2016 11:08 AM PST UNEN[address]ANCED CT FACIAL BONES 03/24/2016 | | 10:34 AM CLINICAL HISTORY: FALL AND HEAD INJURY COMPARISON: Head CT from the same day | | and November 2013 TECHNIQUE: Axial unenhanced images are performed through the facial | | bones, alongwith coronal and sagittal reformations. FINDINGS: There is a displaced | | fracture of the superior right nasal bone, withdisplacement and depression of the distal | | fragment. No other fracture isevident. Changes of right maxillary antrectomy and | | turbinate reduction areagain apparent. The paranasal sinuses, middle ear cavities and | | mastoid aircells are well aerated. Rightward nasal septal deviation persists. There | | aredegenerative changes of the temporomandibular joints, with anterior subluxationand | | flattening of the articular contour of the left mandibular condyle. Numerous dental | | caries are present, without conclusive acute dental injury. There is facet hypertrophy | | involving the imaged cervical spine, without evidenceof acute injury. Soft tissue | | structures are unremarkable. IMPRESSION - 1. DEPRESSED RIGHT NASAL BONE FRACTURE.2. | | DEGENERATIVE CHANGES OF THE TEMPOROMANDIBULAR JOINTS.3. EXTENSIVE DENTAL DISEASE.Images | | were provided for interpretation on March 24, 2016 at 1050 hours. Results were | | finalized at 1105 hours.Dictated and Signed by: Aditya Snyder MD Electronically signed: | | 03/24/2016 11:05 AM | |There is facet hypertrophy involving the imaged cervical spine, without evidence | |of acute injury. Soft tissue structures are unremarkable. | | | |IMPRESSION - | |1. DEPRESSED RIGHT NASAL BONE FRACTURE. | | | |2. DEGENERATIVE CHANGES OF THE TEMPOROMANDIBULAR JOINTS. | | | |3. EXTENSIVE DENTAL DISEASE. | | | |Images were provided for interpretation on March 24, 2016 at 1050 hours. | |Results were finalized at 1105 hours. | | | |Dictated and Signed by: Aditya Snyder MD | | Electronically signed: 03/24/2016 11:05 AM | + + + +---------+ + + | Performing | Address | City/State/Zipcode | Phone Number | | Organization | | | | + +---------+ + + | [facility] | | | | + +---------+ + + CT Head wo Contrast (03/24/2016 10:54 AM PST) + + | Specimen | + + | | + + + + + | Narrative | Performed At | + + + | UNENHANCED HEAD CT 03/24/2016 10:34 AM CLINICAL HISTORY: fall, | [facility] | | head and facial injuries COMPARISON: CT facial bones from | | | the same day, renal MRI July 2015 and more remote exams | | | TECHNIQUE: Axial unenhanced images are performed through the head, | | | along with coronal and sagittal reformations. FINDINGS: There | | | is a stable small, rounded hypodensity in the left basal ganglia, | | | consistent with a dilated perivascular space or chronic lacunar | | | infarct. The cerebral parenchyma, ventricles, brainstem and | | | cerebellum are otherwise unremarkable. Shaw-white differentiation | | | is maintained. There is no mass effect, evidence of recent | | | intracranial hemorrhage or extra-axial fluid collection/mass. Right | | | nasal bone fracture is partially imaged and better demonstrated on | | | dedicated facial CT from the same day. Changes of right maxillary | | | antrectomy are again apparent. There are degenerative changes of the | | | temporomandibular joints. The bones and soft tissues, including | | | the imaged paranasal sinuses, middle ear cavities and mastoid air | | | cells, are otherwise unremarkable. IMPRESSION - 1. RIGHT | | | NASAL BONE FRACTURE WITHOUT OTHER EVIDENCE OF TRAUMATIC INJURY OR | | | ACUTE INTRACRANIAL DISEASE. 2. 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 Images were | | | provided for interpretation on March 24, 2016 1050 hours. Results | | | were finalized at 1100 hours. Dictated and Signed by: Aditya Snyder MD Electronically signed: 03/24/2016 10:58 AM | | + + + + + | Procedure Note | + + | Reed, Rad Results In - 03/24/2016 11:01 AM PST UNENHANCED HEAD CT 03/24/2016 10:34 AM | | | | CLINICAL HISTORY: fall, head and facial injuries | | | | COMPARISON: CT facial bones from the same day, renal MRI July 2015 and more | | remote exams | | | | TECHNIQUE: Axial unenhanced images are performed through the head, along with | | coronal and sagittal reformations. | | | | FINDINGS: There is a stable small, rounded hypodensity in the left basal | | ganglia, consistent with a dilated perivascular space or chronic lacunar | | infarct. The cerebral parenchyma, ventricles, brainstem and cerebellum are | | otherwise unremarkable. Shaw-white differentiation is maintained. There is no | | mass effect, evidence of recent intracranial hemorrhage or extra-axial fluid | | collection/mass. Right nasal bone fracture is partially imaged and better | | demonstrated on dedicated facial CT from the same day. Changes of right | | maxillary antrectomy are again apparent. There are degenerative changes of the | | temporomandibular joints. The bones and soft tissues, including the imaged | | paranasal sinuses, middle ear cavities and mastoid air cells, are otherwise | | unremarkable. | | | | IMPRESSION - | | 1. RIGHT NASAL BONE FRACTURE WITHOUT OTHER EVIDENCE OF TRAUMATIC INJURY OR | | ACUTE INTRACRANIAL DISEASE. | | | | 2. DILATED PERIVASCULAR SPACE OR CHRONIC LACUNAR INFARCT IN THE LEFT BASAL | | GAN[place]IA. | | | | Images were provided for interpretation on March 24, 2016 1050 hours. Results | | were finalized at 1100 hours. | | | | Dictated and Signed by: Aditya Snyder MD | | Electronically signed: 03/24/2016 10:58 AM | + + + +---------+ + + | Performing | Address | City/State/Zipcode | Phone Number | | Organization | | | | + +---------+ + + | [facility] | | | | + +---------+ + + XR Hand Left 3 + Vw (03/24/2016 10:53 AM PST) + + | Specimen | + + | | + + + + + | Narrative | Performed At | + + + | THREE VIEWS LEFT HAND 03/24/2016 10:38 AM CLINICAL HISTORY: FALL | [facility] | | COMPARISON: None available FINDINGS: The bones are well | | | aligned and well aligned. No fracture or subluxation is evident. | | | There are osteoarthritic type changes involving several | | | interphalangeal joints along with the articulation of the scaphoid and | | | distal carpal row. Soft tissues are unremarkable. IMPRESSION - | | | 1. NO EVIDENCE OF TRAUMATIC INJURY. 2. OSTEOARTHRITIC | | | CHANGES. Dictated and Signed by: Aditya Snyder MD | | | Electronically signed: 03/24/2016 3:12 PM | | + + + + + | Procedure Note | + + | Reed, Roger Results In - 03/24/2016 3:15 PM PST THREE VIEWS LEFT HAND 03/24/2016 10:38 | | AMCLINICAL HISTORY: FALLCOMPARISON: None availableFINDINGS: The bones are well aligned | | and well aligned. No fracture orsubluxation is evident. There are osteoarthritic type | | changes involving severalinterphalangeal joints along with the articulation of the | | scaphoid and distalcarpal row. Soft tissues are unremarkable.IMPRESSION -1. NO | | EVIDENCE OF TRAUMATIC INJURY.2. OSTEOARTHRITIC CHANGES.Dictated and Signed by: Aditya | Frances Snyder MD Electronically signed: 03/24/2016 3:12 PM | |subluxation is evident. There are osteoarthritic type changes involving several | |interphalangeal joints along with the articulation of the scaphoid and distal | |carpal row. Soft tissues are unremarkable. | | | |IMPRESSION - | |1. NO EVIDENCE OF TRAUMATIC INJURY. | | | |2. OSTEOARTHRITIC CHANGES. | | | |Dictated and Signed by: Aditya Snyder MD | | Electronically signed: 03/24/2016 3:12 PM | + + + +---------+ + + | Performing | Address | City/State/Zipcode | Phone Number | | Organization | | | | + +---------+ + + | [facility] | | | | + +---------+ + + documented in this encounter Visit Diagnoses + + | Diagnosis | + + | Closed fracture of nasal bone, initial encounter - Primary | + + | Fall at home, initial encounter | + + | Contusion of left hand including fingers, initial encounter | + + | Concussion, with loss of consciousness of 30 minutes or less, initial encounter | + + documented in this encounter Administered Medications + +--------+ + +------+------+ | Medication Order | MAR | Action | Dose | Rate | Site | | | Action | Date | | | | + +--------+ + +------+------+ | HYDROcodone-acetaminophen | Given | 03/24/19 | 1 tablet | | | | (NORCO) 7.5-325 mg per tablet | | 17 10:19 | | | | | tablet 1 tablet, Oral, ONCE, Sun | | AM PST | | | | | 03/24/16 at 1015, For 1 dose | | | | | | + +--------+ + +------+------+ +---+---+ | | | +---+---+ documented in this encounter
--- OUTSIDE RECORDS SUMMARY | ~2019-02-28 | XMS | Encounter Summary ---
Demographics + + + | Address | [address] | | | [place] [address] | + + + | Home Phone [...] Team Providers + +------+ + | Care Antichecking Iron Worker Name | Role | Phone | [...] | | | | [facility] | [address] | [address] | | | | | EXERCISE | [place], | [place] | | | | | | [place] [address] | [place], [place] | | | | | | Phone: | [address] | | | | | | [phone] | Phone: | | | | | | Fax: | [phone] | | | | | | [phone] | Fax: | | | | | | | [phone] | +--------+--------+ + + + + Encounter Details +--------+---------+ + + + | Date | Type | Department | Care Team | Description | +--------+---------+ + + + | 06/13/ | Office | [facility] | Sharonda Delmycaitie, | Chronic obstructive | | 2017 | Visit | [facility] | MD [address] | pulmonary disease, | | | | REHABILITATION [address] [place], | unspecified COPD | | | | [address] [place] | [place] [address] | type (HCC) (Primary | | | | [place] [address] | [phone] | Dx) | | | | [phone] | | | +--------+---------+ + + + [...] | | | [address] [place] | | | | | | [address] | | | | | | | | +--------+---------+ + + + | 11/24/ | Office | Cardiology | Flores, | | | 2020 | Visit | | SINDHU Erickson [address] | | | | | | [place], | | | | | | [place] [address] | | | | | | [phone] | | | | | | | | +--------+---------+ + + + documented as of this encounter Visit Diagnoses + + | Diagnosis | + + | Chronic obstructive pulmonary disease, unspecified COPD type (HCC) - Primary | + + documented in this encounter"
--- OUTSIDE RECORDS SUMMARY | ~2019-02-28 | XMS | Encounter Summary ---
Demographics + + + | Address | [address] | | | [place] [address] | + + + | Home Phone [...] Team Providers + +------+ + | Care Ext Js Developer Name | Role | Phone | [...] | with brief | [address] | [place] | | | | n | loss of | [address] | [place], | | | | | consciousnes | [place], | [place] [address] | | | | | s | [place] [address] | Phone: | | | | | Post-concuss | Phone: | [phone] | | | | | ion vertigo | [phone] | Fax: | | | | | [phone] | Fax: | [phone] | | | | | (ICD-10-CM) | [phone] | | | | | | - [...] + + | 05/27/ | Office | [facility] | Aaron Rodriguez, | Dizziness (Primary | | 2017 | Visit | [facility] PT | MD [address] | Dx); Impaired | | | | OP [address] | [place] | mobility and | | | | [place] | [phone] | activities of daily | | | | [address] | | living; Concussion | | | | [phone] | Lakeshia Cleary, PT | with brief (less | | | | | [address] | than one hour) loss | | | | | [place] | of consciousness; | | | | | [phone] | Intractable acute | | | | [...] might be different from t he original. [facility] OP [address] [place] [address] Physical Therapy Daily Treatment Note Date: 05/27/2016 [...] Rehab Precautions Office Visit from 05/01/2016 in [facility] OP Rehab Precautions Precautions [...] | | | | [address] [place], [place] | | | | | | [address] | | | | | | | | +--------+---------+ + + + | 11/24/ | Office | Cardiology | Flores, | | | 2019 | Visit | | SINDHU Erickson [address] | | | | | | [place], | | | | | | [place] [address] | | | | | | [phone] | | | | | | | [...]
--- OUTSIDE RECORDS SUMMARY | ~2019-02-28 | XMS | Encounter Summary ---
Demographics + + + | Address | [address] | | | [place] [address] | + + + | Home Phone [...] Providers + +------+ + | Care Ticket Scheduler Name | Role | Phone | + [...] | | | | | [place] | [facility] | | | | | [address] | [place] [address] | | | | | [phone] | [phone] | | | | | | | [...] [place] | | | | | | [address] | | | | | | | | +--------+---------+ + + + | 11/24/ | Office | Cardiology | Flores, | | | 2019 | Visit | | SINDHU Erickson [address] | | | | | | [place], | | | | | | [place] [address] | | | | | | [phone] | | | | | | | | +--------+---------+ + + + documented as of this encounter Visit Diagnoses Not on filedocumented in this encounter"
--- OUTSIDE RECORDS SUMMARY | ~2019-02-28 | XMS | Encounter Summary ---
Demographics + + + | Address | [address] | | | [place] [address] | + + + | Home Phone [...] Team Providers + +------+ + | Care Analytics Associate Name | Role | Phone | [...] | | | | [facility] | [address] | [address] | | | | | EXERCISE | [place], | [place] | | | | | | [place] [address] | [place], [place] | | | | | | Phone: | [address] | | | | | | [phone] | Phone: | | | | | | Fax: | [phone] | | | | | | [phone] | Fax: | | | | | | | [phone] | +--------+--------+ + + + + Encounter Details +--------+---------+ + + + | Date | Type | Department | Care Team | Description | +--------+---------+ + + + | 07/30/ | Office | [facility] | Jared Mcdonough, | Chronic obstructive | | 2017 | Visit | [facility] CARD[facility] | [address] | pulmonary disease, | | | | REHABILITATION [address] | [address] [place], | unspecified COPD | | | | [address] [place] | [place] [address] | type (HCC) (Primary | | | | [place] [address] | [phone] | Dx) | | | | [phone] | | | +--------+---------+ + + + [...] [place] | | | | | | [address] | | | | | | | | +--------+---------+ + + + | 11/24/ | Office | Cardiology | Flores, | | | 2019 | Visit | | SINDHU Erickson [address] | | | | | | [place], | | | | | | [place] [address] | | | | | | [phone] | | | | | | | | +--------+---------+ + + + documented as of this encounter Visit Diagnoses + + | Diagnosis | + + | Chronic obstructive pulmonary disease, unspecified COPD type (HCC) - Primary | + + documented in this encounter"
--- OUTSIDE RECORDS SUMMARY | ~2019-02-28 | XMS | Encounter Summary ---
Demographics + + + | Address | [address] | | | [place] [address] | + + + | Home Phone [...] Providers + +------+ + | Care Electric Wheelchair Repairer Name | Role | Phone | + +------+ + PCP | Unavailable | + +------+ + Encounter Details +--------+ + + + + | Date | Type | Department | Care Team | Description | +--------+ + + + + | 04/13/ | Hospital | [facility] | Lencho Goss MD | | | 2010 | Encounter | MED CTR GENERIC OP | [address], [place] | | | | | CONV DEPT [address] | [address] [place], [place] | | | | | [address] [place], | [address] | | | | | [place] [address] | | | | | | [phone] | | | +--------+ + + + [...] [place] | | | | | | [address] | | | | | | | | +--------+---------+ + + + | 11/24/ | Office | Cardiology | Flores, | | | 2019 | Visit | | SINDHU Erickson [address] | | | | | | [place], | | | | | | [place] [address] | | | | | | [phone] | | | | | | | | +--------+---------+ + + + documented as of this encounter Visit Diagnoses Not on filedocumented in this encounter"
--- OUTSIDE RECORDS SUMMARY | ~2019-02-28 | XMS | Encounter Summary ---
Demographics + + + | Address | [address] | | | [place] [address] | + + + | Home Phone [...] Providers + +------+ + | Care Can Inspector Name | Role | Phone | [...] | | | | | | level ([facility]) | [place] | | | | | | Procedures | [place], [place] | | | | | | MRI Brain w | [address] | | | | | | wo Contrast | Phone: | | | | | | | [phone] | | | | | | | Fax: | | | | | | | [phone] | | +--------+--------+ + + + + [...] | | | MRI Brain w | [address] | | | | | | wo Contrast | Phone: | | | | | | | [phone] | | | | | | | Fax: | | | | | | | [phone] | | +--------+--------+ + + + + Encounter Details +--------+ + + + + | Date | Type | Department | Care Team | Description | +--------+ + + + + | 08/09/ | Hospital | [facility] | Daya Decker, | Aleksandr prolactin | | 2016 | Encounter | MED CTR MRI [address] | MD [address] | level ([facility]) | | | | [place], | [place] | | | | | [place] [address] | [address] | | | | | [phone] | [phone] | | | | | | | [...] [place] | | | | | | [address] | | | | | | | | +--------+---------+ + + + | 11/24/ | Office | Cardiology | [place], | | | 2020 | Visit | | SINDHU Erickson [address] | | | | | | [place], | | | | | | [place] [address] | | | | | | [phone] | | | | | | | [...] mL/min/1.73m2 | [facility] | | | [place] | | | MEDICAL | | | [...] [address] | [place] | [phone] | | [facility] | | [address] | | | - LABORATORY | | [...] and signal | | characteristics. No abnormal [id number], contrast enhancement, susceptibility | | change, or [...] | | | | PRN, Other, Starting [facility] 08/10/15 | | AM PDT | | | | | at 0949, For 1 dose, MRI | | | | | | + +--------+ +--------+------+------+ +---+---+ | | | +---+---+ documented in this encounter"
--- OUTSIDE RECORDS SUMMARY | ~2019-02-28 | XMS | Encounter Summary ---
Demographics + + + | Address | [address] | | | [place] [address] | + + + | Home Phone [...] Team Providers + +------+ + | Care Geotechnical Engineering Technician Name | Role | Phone | [...] | RN | | | | | [place], | | | | | | [place] [address] | | | | | | [phone] | | | +--------+ + + + [...] [place] | | | | | | [address] | | | | | | | | +--------+---------+ + + + | 11/24/ | Office | Cardiology | [place], | | | 2019 | Visit | | SINDHU Erickson [address] | | | | | | [place], | | | | | | [place] [address] | | | | | | [phone] | | | | | | | | +--------+---------+ + + + documented as of this encounter Visit Diagnoses Not on filedocumented in this encounter"
--- OUTSIDE RECORDS SUMMARY | ~2019-02-28 | XMS | Encounter Summary ---
Demographics + + + | Address | [address] | | | [place] [address] | + + + | Home Phone [...] Team Providers + +------+ + | Care Seal Mixing Operator Name | Role | Phone | [...] | RN | | | | | [place], | | | | | | [place] [address] | | | | | | [phone] | | | +--------+ + + + [...] [place] | | | | | | [address] | | | | | | | | +--------+---------+ + + + | 11/24/ | Office | Cardiology | [place], | | | 2019 | Visit | | SINDHU Erickson [address] | | | | | | [place], | | | | | | [place] [address] | | | | | | [phone] | | | | | | | | +--------+---------+ + + + documented as of this encounter Visit Diagnoses Not on filedocumented in this encounter"
--- OUTSIDE RECORDS SUMMARY | ~2019-02-28 | XMS | Encounter Summary ---
Demographics + + + | Address | [address] | | | [place] [address] | + + + | Home Phone [...] Team Providers + +------+ + | Care Cut Out Marker Name | Role | Phone | [...] + + | 11/06/ | Office | [facility] | [place], | Palpitations | | 2017 | Visit | CARDIOLOGY [address] | SINDHU Erickson [address] | (Primary Dx); | | | | [place], | [place], | Paroxysmal atrial | | | | [place] [address] | [place] [address] | tachycardia (HCC); | | | | [phone] | [phone] | Chest pain, | | | | [...] da rigoberto Respiratory Therapy Supplies [facility] Please provide patient with necessary CPAP supplies ( she did not specify, okay to send order as appropriate) Diagnosis Code(s)327.23 . Length of Need 99 months. Please send order to [facility]. 1 each 0 Respiratory Therapy Supplies [facility] Change CPAP back to 11-14 cm H2O. All necessary suppl ies. No oxygen bleed in. Diagnosis Code(s)327.23. Length of Need: Lifetime. Please send orde r to [facility]. This is not a new order, [...] has shortened Confirmed by CLAY SANCHEZ MD ([id number]) on 10/16/2016 4:31:30 PM LAB RESULTS reviewed during visit today primarily from [facility]: LIPID Lab Results Component Value Date [...] 370 07/11/2014 I reviewed records from [facility] for Holter report on 10/18/2016 which is [...] She is in a class II of [place] [employer] functional class. There is no [...] this chart may have been created with [employer] voice recognition software. Occasi onal wrong-word or [...] | | | | [place] | | | | | | [address] | | | | | | | | +--------+---------+ + + + | 11/24/ | Office | Cardiology | [place], | | | 2019 | Visit | | SINDHU Erickson [address] | | | | | | [place], | | | | | | [place] [address] | | | | | | [phone] | | | | | | | [...]
--- OUTSIDE RECORDS SUMMARY | ~2019-02-28 | XMS | Encounter Summary ---
Demographics + + + | Address | [address] | | | [place] [address] | + + + | Home Phone [...] Providers + +------+ + | Care Hand Singer Name | Role | Phone | + [...] | sleep apnea) | | | | [place], | | | | | | [place] [address] | | | | | | [phone] | | | +--------+ + + + [...] [place] | | | | | | [address] | | | | | | | | +--------+---------+ + + + | 11/24/ | Office | Cardiology | [place], | | | 2020 | Visit | | SINDHU Erickson [address] | | | | | | [place], | | | | | | [place] [address] | | | | | | [phone] | | | | | | | | +--------+---------+ + + + documented as of this encounter Visit Diagnoses + + | Diagnosis | + + | GARRY (obstructive sleep apnea) Obstructive sleep apnea (adult) (pediatric) | + + documented in this encounter"
--- OUTSIDE RECORDS SUMMARY | ~2019-02-28 | XMS | Encounter Summary ---
Demographics + + + | Address | [address] | | | [place] [address] | + + + | Home Phone [...] Providers + +------+ + | Care Parts Room Assistant Name | Role | Phone | + +------+ + PCP | Unavailable | + +------+ + Encounter Details +--------+ + + + + | Date | Type | Department | Care Team | Description | +--------+ + + + + | 04/21/ | Hospital | [facility] | Nestor Martinez, | | | 2010 | Encounter | MED CTR EMERGENCY | [address] | | | | | CENTER [address] | [place], [place] | | | | | [place] | [address] | | | | | [address] | | | | | | [phone] | | | +--------+ + + + [...] [place] | | | | | | [id number] | | | | | | | | +--------+---------+ + + + | 11/24/ | Office | Cardiology | [place], | | | 2019 | Visit | | SINDHU Erickson [address] | | | | | | [place], | | | | | | [place] [address] | | | | | | [phone] | | | | | | | | +--------+---------+ + + + documented as of this encounter Visit Diagnoses Not on filedocumented in this encounter"
--- OUTSIDE RECORDS SUMMARY | ~2019-02-28 | XMS | Encounter Summary ---
Demographics + + + | Address | [address] | | | [place] [address] | + + + | Home Phone [...] Team Providers + +------+ + | Care Acid Purifier Name | Role | Phone | + [...] + + | 11/08/ | Office | [facility] | Lencho Astorga, | Axillary abscess | | 2015 | Visit | CARE [address] | [address] | (Primary Dx) | | | | [place] | [place] | | | | | [address] | [address] | | | | | [phone] | | | +--------+---------+ + + + [...] [place] | | | | | | [address] | | | | | | | | +--------+---------+ + + + | 11/24/ | Office | Cardiology | [place], | | | 2019 | Visit | | SINDHU Erickson [address] | | | | | | [place] | | | | | | [place] [address] | | | | | | [phone] | | | | | | | | +--------+---------+ + + + documented as of this encounter Visit Diagnoses + + | Diagnosis | + + | Axillary abscess - Primary Cellulitis and abscess of upper arm and forearm | + + documented in this encounter"
--- OUTSIDE RECORDS SUMMARY | ~2019-02-28 | XMS | Encounter Summary ---
Demographics + + + | Address | [address] | | | [place] [address] | + + + | Home Phone [...] Team Providers + +------+ + | Care Survey Project Manager Name | Role | Phone [...] shortnes of breath) | | | | [place], | | | | | | [place] [address] | | | | | | [phone] | | | +--------+ + + + [...] [place] | | | | | | [address] | | | | | | | | +--------+---------+ + + + | 11/24/ | Office | Cardiology | [place], | | | 2019 | Visit | | SINDHU Erickson [address] | | | | | | [place] | | | | | | [place] [address] | | | | | | [phone] | | | | | | | | +--------+---------+ + + + documented as of this encounter Visit Diagnoses Not on filedocumented in this encounter"
--- OUTSIDE RECORDS SUMMARY | ~2019-02-28 | XMS | Encounter Summary ---
Demographics + + + | Address | [address] | | | [place] [address] | + + + | Home Phone [...] Providers + +------+ + | Care Public Health Sanitarian Technician Name | Role | Phone | + +------+ + PCP | Unavailable | + +------+ + Encounter Details +--------+ + + + + | Date | Type | Department | Care Team | Description | +--------+ + + + + | 05/01/ | Hospital | [facility] | Aleix Guaman, | | | 2010 | Encounter | MED CTR EMERGENCY | [address] | | | | | CENTER [address] | [place] | | | | | [place] | [address] | | | | | [address] | | | | | | [phone] | | | +--------+ + + + [...] [place] | | | | | | [address] | | | | | | | | +--------+---------+ + + + | 11/24/ | Office | Cardiology | [place], | | | 2019 | Visit | | SINDHU Erickson [address] | | | | | | [place], | | | | | | [place] [address] | | | | | | [phone] | | | | | | | [...] + | [facility] [facility] | [address] | [place] | [phone] | | [facility] | | [address] | | | - LABORATORY | | | | + + + + + | [facility] [facility] | [address] | [place] | | | [facility] | | [address] | | | - LABORATORY | | [...] + | [facility] | [address] | [place], [place] | [phone] | | [facility] | | [address] | | | - LABORATORY | | | | + + + + + | [facility] | [address] | [place], [place] | | | [facility] | | [address] | | | - LABORATORY | | | | + + + + + XR Chest PA or AP (05/01/2010 5:32 PM PST) + + | Specimen | + + | | + + + + + | Narrative | Performed At | + + + | [facility] Diagnostic Imaging Department | [facility] | | [address] [facility] | [facility] | | PORTABLE CHEST, 05/01/2010 [...] Transcribed Date/Time: | | | 05/02/2010 11:54 Power Crane Operator: <Electronically Signed | | | by Cesar Ren MD> 05/02/10 1555 | | + + + + ---------+ | Procedure Note | + ---------+ | Reed, Rad Conversion - 04/02/2013 2:24 PM [facility] | | Diagnostic Imaging Department [address] [place] [address] | | PORTABLE CHEST, 05/01/2010 AT 1807 [...] 11:04 Transcribed Date/Time: 05/02/2010 11:54 | | Power Crane Operator: <Electronically Signed by Cesar Ren MD> 05/02/10 [...] 11:04 | |Transcribed Date/Time: 05/02/2010 11:54 | |Power Crane Operator: | |<Electronically Signed by Cesar Ren MD> 05/02/10 1555 | + ---------+ + +---------+ + + | Performing | Address | City/State/Zipcode | Phone Number | | Organization | | | | + +---------+ + + | [place] | | | | | [facility] | | | | + +---------+ + + documented in this encounter Visit Diagnoses Not on filedocumented in this encounter"
--- OUTSIDE RECORDS SUMMARY | ~2019-02-28 | XMS | Encounter Summary ---
Demographics + + + | Address | [address] | | | [place] [address] | + + + | Home Phone [...] Team Providers + +------+ + | Care Hiv Counselor Name | Role | Phone | + +------+ + | Ozzy Delcid MD | PCP | | + +------+ + Encounter Details +--------+ + + + + | Date | Type | Department | Care Team | Description | +--------+ + + + + | 09/16/ | Hospital | [facility] | Yecenia Gallegos | | | 2011 | Encounter | MED CTR EMERGENCY | Yinka Aguirre MD [address] | | | | | CENTER [address] | [facility] | | | | | [place] | [place] [address] | | | | | [address] | [phone] | | | | | [phone] | | | +--------+ + + + [...] | | | | | | [place] [address] | | | | | | [phone] | | | | | | | [...] + | [facility] | [address] | [place], [place] | [phone] | | [facility] | | [address] | | | - LABORATORY | | | | + + + + + | [facility] | [address] | [place], [place] | | | [facility] | | [address] | | | - LABORATORY | | | | + + + + + documented in this encounter Visit Diagnoses Not on filedocumented in this encounter"
--- OUTSIDE RECORDS SUMMARY | ~2019-02-28 | XMS | Encounter Summary ---
Demographics + + + | Address | [address] | | | [place] [address] | + + + | Home Phone [...] Team Providers + +------+ + | Care Tufter Name | Role | Phone | + [...] | Concussion | Aaron Kim MD | Ophthalmic Surgical Assistant [address] | | | Required | | with brief | [address] | [place] | | | | | loss of | [address] | [place], [place] | | | | | consciousnes | [place], | [address] | | | | | s Word | [place] [address] | Phone: | | | | | finding | Phone: | [phone] | | | | | difficulty | [phone] | Fax: | | | | | [phone] | Fax: | [phone] | | | | | (ICD-10-CM) | [phone] | | | | | | - [...] + + | 06/20/ | Hospital | [facility] | Aaron Rodriguez, | Impaired memory | | 2017 | Encounter | MED CTR SPEECH | MD [address] | (Primary Dx); | | | | THERAPY [address] | [place] | Concussion with | | | | [place], | [address] | brief (less than one | | | | [place] [address] | | hour) loss of | | | | [phone] | Kathi Soto, | consciousness; | | [...] | | | | [facility]. | | | | | | | [...] | | | | | | | ([facility]) | | | | | | + + + +---------+ + + | | Take 1 capsule by | | 0 | 10/13/19 | | | [id number]-DCHJ-Ypya | mouth as needed. | | | 16 | 7 | | -Cod [id number] MG | | | | | | [...] | | | | | | | ([facility]) | | | | | [...] Speech Pathologist - 06/21/2016 1:45 PM PDT [facility]ERAPY [address] [facility] [address] Speech Therapy Daily Treatment Note Date: 06/20/2016 [...] Precautions Office Visit from 05/01/2016 in [facility] THERAPY PT OP Rehab Precautions Precautions None Rehab Learning Style [employer] SUPERVISOR OP EVAL from 05/16/2016 in [facility] SPEECH THERAPY Office V isit from 05/01/2016 in [facility] THERAPY PT OP Learning Style Patient's [...] [place] | | | | | | [address] | | | | | | | | +--------+---------+ + + + | 11/24/ | Office | Cardiology | [place], | | | 2019 | Visit | | SINDHU Erickson [address] | | | | | | [place], | | | | | | [place] [address] | | | | | | [phone] | | | | | | | [...]
--- OUTSIDE RECORDS SUMMARY | ~2019-02-28 | XMS | Encounter Summary ---
Demographics + + + | Address | [address] | | | [place] [address] | + + + | Home Phone [...] Providers + +------+ + | Care Land Development Project Manager Name | Role | Phone [...] [address] | | | | | [place], | [place] | | | | | [place] [address] | [address] | | | | | [phone] | | | +--------+--------+ + + + [...] [place] | | | | | | [address] | | | | | | | | +--------+---------+ + + + | 11/24/ | Office | Cardiology | [place], | | | 2019 | Visit | | SINDHU Erickson [address] | | | | | | [place], | | | | | | [place] [address] | | | | | | [phone] | | | | | | | | +--------+---------+ + + + documented as of this encounter Visit Diagnoses Not on filedocumented in this encounter"
--- OUTSIDE RECORDS SUMMARY | ~2019-02-28 | XMS | Encounter Summary ---
Demographics + + + | Address | [address] | | | [place] [address] | + + + | Home Phone [...] Providers + +------+ + | Care Health Outcomes Liaison Name | Role | Phone | + +------+ + | Juan Cherry DO | PCP | | + +------+ + Reason for Visit + + + | Reason | Comments | + + + | Follow-up | Tachyarrhythmia | + + + | Results | 48 hour Holter monitor 08/12/2013 ([facility]) | + + + | Palpitations | | + + + Encounter Details +--------+ + + + + | Date | Type | Department | Care Team | Description | +--------+ + + + + | 10/05/ | Off-Site | [facility] | Jared Mcdonough, | Palpitations | | 2013 | Visit | CARDIOLOGY [address] | [address] | (Primary Dx); | | | | [place], | 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 Patient denies chest [...] apnea COPD (chronic obstructive pulmonary disease) ([facility]) Healthcare maintenance Preventative health care GARRY (obstructive sleep apnea) Multiple personality disorder GERD (gastroesophageal reflux disease) Diverticulosis Insomnia Sprain of chest wall Benign neoplasm of pituitary gland and craniopharyngeal duct (pouch) ([facility]) Status post total hysterectomy Irritable colon Hypoxemia ([facility]) Allergic rhinitis Tachycardia Palpitations [...] Take by mouth Daily. Respiratory Therapy Supplies [facility] Incentive spirometer. Please provide instructions in use. Dx: 848.8 MADELEINE: 3 months 1 each 99 [facility] Please provide patient with necessary CPAP supplies ( she did not specify, okay to send order as appropriate) Diagnosis Code(s)327.23 . Length of Need 99 months. Please send order to [facility]. 1 each 0 Respiratory Therapy Supplies [facility] Change CPAP back to 11-14 cm H2O. All necessary suppl ies. No oxygen bleed in. Diagnosis Code(s)327.23. Length of Need: Lifetime. Please send orde r to [facility]. This is [...] and ventricular function don e at the [facility]. LVEF 78%. C. Holter Monitor 08/16/13 [...] She is in a class II of [employer] functional class. There is [...] patient will be referred to Dr. Ding, receiving specialist at [facility] for PAT ablati on 3. Followup in 3 months Electronically signed by: Jared Mcdonough MD [facility] 10/05/2013 11:25 Portions of this chart may have been created with [employer] voice recognition software. Occasi onal wrong-word or [...] | | | | | | [place] [address] | | | | | | [phone] | | | | | | | | +--------+---------+ + + + documented as of this encounter Visit Diagnoses + + | Diagnosis | + + | Palpitations - Primary | + + | Paroxysmal atrial tachycardia (HCC) Paroxysmal supraventricular tachycardia | + + documented in this encounter
--- OUTSIDE RECORDS SUMMARY | ~2019-02-28 | XMS | Encounter Summary ---
Demographics + + + | Address | [address] | | | [place] [address] | + + + | Home Phone [...] Providers + +------+ + | Care Sales Planning Manager Name | Role | Phone | [...] Pituitary | Shashi Witt, | [address] | | | | | adenoma | MD Need | [place], | | | | | ([facility]) | updated | [place] | | | | | Procedures | address | [address] | | | | | MRI Brain w | | Phone: | | | | | wo Contrast | | [phone] | | | | | | | Fax: | | | | | | | [phone] | +--------+--------+ + + + + Reason [...] Pituitary | Shashi Witt, | [address] | | | | | adenoma | MD Need | [place], | | | | | ([facility]) | updated | [place] | | | | | Procedures | address | [address] | | | | | MRI Brain w | | Phone: | | | | | wo Contrast | | [phone] | | | | | | | Fax: | | | | | | | [phone] | +--------+--------+ + + + + Encounter Details +--------+ + + + + | Date | Type | Department | Care Team | Description | +--------+ + + + + | 06/02/ | Hospital | [facility] | Shashi Segovia | Pituitary adenoma | | 2014 | Encounter | MED CTR MRI [address] MD Need updated | ([facility]) | | | | [place], | address | | | | | [place] [address] | | | | | | [phone] | | | +--------+ + + + [...] | | | | | order to [facility]. | | | | | [...] | | | | | | | [facility]. | | | | [...] | | | | | | | ([facility]) | | | | | | [...] [place] | | | | | | [address] | | | | | | | | +--------+---------+ + + + | 11/24/ | Office | Cardiology | [place], | | | 2019 | Visit | | SINDHU Erickson [address] | | | | | | [place], | | | | | | [place] [address] | | | | | | [phone] | | | | | | | [...] of 10 mL of Gadavist. Dedicated small plzdq-jl-oabd | | | thin section imaging through [...] 10 mL ofGadavist. | | Dedicated small jfhnn-yt-sscc thin section imaging through thepituitary region before [...] [address] | [place] | [phone] | | [facility] | | [address] | | | - IMAGING | | [...]
--- OUTSIDE RECORDS SUMMARY | ~2019-02-28 | XMS | Encounter Summary ---
Demographics + + + | Address | [address] | | | [place] [address] | + + + | Home Phone [...] Providers + +------+ + | Care Hourly Sales Staff Name | Role | Phone | + [...] + + | 07/29/ | Office | [facility] | Andriy Weber | Kendra | | 2018 | Visit | [address] | MD [address] | cystitis (chronic) | | | | [place], [place] | [facility] | without hematuria | | | | [address] | [place] [address] | | | | | [phone] | [phone] | | | | | | | [...] past medical history of Adrenal insufficiency ([facility]); Anxiety; Asthma; Benign neop lasm of pituitary gland and craniopharyngeal duct (pouch) ([facility]) (10/28/2012); Bilateral renal cysts; Complex sleep apnea syndrome; COPD (chronic obstructive pulmonary disease) ([facility]) (201 2); Depression; Diverticulitis; Diverticulosis; Emphysema; Fibromyalgia; [...] takes this da rigoberto Respiratory Therapy Supplies [facility] Please provide patient with necessary CPAP supplies ( she did not specify, okay to send order as appropriate) Diagnosis Code(s)327.23 . Length of Need 99 months. Please send order to [facility]. 1 each 0 Respiratory Therapy Supplies [facility] Change CPAP back to 11-14 cm H2O. All necessary suppl ies. No oxygen bleed in. Diagnosis Code(s)327.23. Length of Need: Lifetime. Please send orde r to [facility]. This is not a new order, [...] source of her bleeding recently. She will machine pecan picker Keflex for prophylaxis today. DIAGNOSTIC DATA: [...] This document was generated in part using [employer] voice recognition software. Although ever y effort is made to edit the content, potato chip maker errors may occur. Occasional wrong word or [...] [place] | | | | | | [address] | | | | | | | | +--------+---------+ + + + | 11/24/ | Office | Cardiology | [place], | | | 2019 | Visit | | SINDHU Erickson [address] | | | | | | [place], | | | | | | [place] [address] | | | | | | [phone] | | | | | | | [...]
--- OUTSIDE RECORDS SUMMARY | ~2019-02-28 | XMS | Encounter Summary ---
Demographics + + + | Address | [address] | | | [place] [address] | + + + | Home Phone [...] Providers + +------+ + | Care Student Name | Role | Phone | + +------+ + | Juan Cherry DO | PCP | | + +------+ + Reason for Visit + + + | Reason | Comments | + + + | Follow-up | 6-8 weeks | + + + | Palpitations | | + + + | Syncope | | + + + | Atrial Fibrillation | | + + + Encounter Details +--------+---------+ + + + | Date | Type | Department | Care Team | Description | +--------+---------+ + + + | 11/12/ | Office | [facility] | Flores, | Chest pain, | | 2018 | Visit | CARDIOLOGY [address] | SINDHU Erickson [address] | unspecified type | | | | [place], | [place], | (Primary Dx); | | | | [place] [address] | [place] [address] | Palpitations; | | | | [phone] | [phone] | Paroxysmal atrial | | | | | | tachycardia (HCC); | | | | | | Syncope, [...] + | Blood Pressure | 90/60 | 11/12/2017 7:39 AM | | | | | PDT | | + + + + + | Pulse | 100 | 11/12/2017 7:39 AM | | | | | PDT | | + + + + + | Temperature | - | - | | + + + + + | Respiratory Rate | 16 | 11/12/2017 7:39 AM | | | | | PDT | | + + + + + | Oxygen Saturation | - | - | | + + + + + | Inhaled Oxygen | - | - | | | Concentration | | | | + + + + + | Weight | 73.1 kg (161 lb 2.5 | 11/12/2017 7:39 AM | | | | oz) | PDT | | + + + + + | Height | 154.9 cm (5' 1") | 11/12/2017 7:39 AM | | | | | PDT | | + + + + + | Body Mass Index | 30.45 | 11/12/2017 7:39 AM | | | | | PDT [...] Instructions Patient Instructions Georgina Tanner ARNP - 11/12/2017 7:45 AM PDT1. Continue with pot assium 2. Start Magnesium oxide 400 mg once every day 3. Increase Propanolol 100 mg twice a day 4. Call with blood pressures and results 5. Follow up in 1-2 months 8 :32 AM PDT documented in this encounter Progress Notes Georgina Tanner ARNP - 11/12/2017 7:45 AM PDTFormatting of this note might be differen t from the original. PATIENT NAME: Rosario Malik : 1965: AGE: 52 y.o. PRIMARY CARE: Juan Cherry DO OUTPATIENT FOLLOW UP VISIT Date of Service: 11/12/2017 HISTORY OF PRESENT ILLNESS: Rosario Malik is a 52 y.o. female with a history of non-cardiac chest pain, inappro priate atrial tachycardia, paroxysmal atrial tachycardia with palpitations, emphysema, hypot hyroidism obstructive sleep apnea and nocturnal hypoxemia and bipolar disorder. She is teresa ng seen today for follow up palpitations. She was last seen 09/17/2017 at which time she was to started on potassium chloride 20 mEq d aily, and she wouldl have lab for BMP and magnesium level in 1 week. Will further adjust her potassium supplement as needed to reach goal of potassium level of at least. Reassess her p alpitations at that time once her potassium level is normalized, and follow up in 6 to 8 wee mn for office visit, or sooner with concerns. Since that time, she has been feeling "that the palpitations are better with the potassium" . She denies chest pain or pressure. She has noted improvement in her palpitations. She cont inues using her BiPap. She is walking around her house. She has palpitations right now so we will obtain an EKG. She saw her PCP about her possible move. MEDICAL, SURGICAL, AND PERSONAL HISTORY Past Medical, [...] MORNING BEFORE BREAKF AST 90 tablet 1 potassium chloride (KLOR-CON M20) 20 mEq ER tablet Take 1 tablet by mouth Daily. predniSONE (DELTASONE) 10 mg tablet Take 10 mg by mouth Daily. propranolol (INDERAL) 10 mg tablet Take 10 mg by mouth 2 times daily. She takes this da rigoberto Respiratory Therapy Supplies [facility] Please provide patient with necessary CPAP supplies ( she did not specify, okay to send order as appropriate) Diagnosis Code(s)327.23 . Length of Need 99 months. Please send order to [facility]. 1 each 0 Respiratory Therapy Supplies [facility] Change CPAP back to 11-14 cm H2O. All necessary suppl ies. No oxygen bleed in. Diagnosis Code(s)327.23. Length of Need: Lifetime. Please send orde r to [facility]. This is not a new order, [...] ROS Review of Systems Constitutional: Positive for chills. Negative for diaphoresis, fever, malaise/fatigue and w eight loss. HENT: Negative for congestion, hearing loss, nosebleeds and tinnitus. Dental Problems = No Eyes: Positive for double vision. Negative for blurred vision. Respiratory: Positive for shortness of breath. Cardiovascular: Positive for chest pain. Negative for palpitations and leg swelling. Gastrointestinal: Negative for blood in stool, constipation, diarrhea, nausea and vomiting. Genitourinary: Positive for frequency. Negative for dysuria, hematuria and urgency. Musculoskeletal: Positive for joint pain. Negative for back pain, falls, myalgias and neck pain. Gait Problems = No Skin: Negative for itching and rash. Neurological: Positive for weakness. Negative for dizziness, tingling, tremors, speech amado ge, seizures and loss of consciousness. Lightheaded = yes Endo/Heme/Allergies: Bruises/bleeds easily (bruise easy). Psychiatric/Behavioral: Negative for memory loss. The patient has insomnia. The patient is not nervous/anxious. OBJECTIVE: PHYSICAL EXAM BP 90/60 | Pulse 100 | Resp 16 | Ht 1.549 m (5' 1") | Wt 73.1 kg (161 lb 2.5 oz) | BMI 30.45 kg/m Physical Exam Constitutional: She is oriented [...] or performed during the hospital encounter of 11/12/2017 ECG 12 lead Result Value Ref Range INTERPRETATION TEXT Sinus rhythm heart rate 100 bpm LAB RESULTS reviewed during visit today primarily from [facility]: LIPID Lab Results Component Value Date CHOLHDL 5.0 11/01/2015 LDLEX 143 (A) 11/01/2015 HDLEX 51 11/01/2015 TRIGEX 172 (A) 11/01/2015 CHOLEX 228 (A) 11/01/2015 CHEMISTRY Lab Results Component Value Date GLU 164 (H) 11/11/2017 GLUEX 108 (A) 11/05/2017 NA 138 11/11/2017 NAEX 140 11/05/2017 K 4.2 11/11/2017 KEX 3.8 11/05/2017 CL 102 11/11/2017 CLEX 105 11/05/2017 CO2 24 11/11/2017 CO2EX 24 11/05/2017 CALCIUM 9.0 11/11/2017 ALKPHOS 73 08/14/2017 AST 29 08/14/2017 ASTEX 19 03/18/2017 ALT 16 08/14/2017 ALTEX 13 03/18/2017 BILITOT 0.6 08/14/2017 CREA 0.79 11/11/2017 BUN 5 (L) 11/11/2017 EGFR >60 03/22/2013 EGFREX 60 11/05/2017 CREEX 0.5 (A) 11/05/2017 HEMATOLOGY Lab Results Component Value Date WBC 10.6 09/13/2017 WBCEX 14.0 (A) 06/10/2017 HGB 13.5 09/13/2017 HGBEX 13.2 06/10/2017 HCT 38.6 09/13/2017 HCTEX 39.6 06/10/2017 PLT 437 09/13/2017 PLTEX 507 (A) 06/10/2017 I reviewed records from PCP for office visit on 08/2017 which is summarized in the HPI. Above [...] and v entricular function done at the [facility]. LVEF 78%. C. Holter Monitor 08/16/13 Underlying [...] rdia when patient mowed the lawn, by Jared Mcdonough MD. H. Seen in emergency department 08/14/17, 08/30/17, and 09/13/17 for pa lpitations. Also found to be hypokalemic the last two visits, and given doses of potassium e ach time. G. She has had less palpitations on potassium supplement. Better than what it u sed to be, but symptomatic today. She is in class II of the [place] [employer] funct ional class. There are no signs or symptoms of overt congestive heart failure. 2. Hypotension secondary to medication: A. Her propranolol was decreased 06/2017 due to hypotension. B. 11/12/2017 borderline hypotension 3. Hypokalemia: A. Noted on labs in emergency department 08/30/17 and 09/13/17, and associated wit h worsening palpitations. She has had intermittent doses of potassium chloride during those events to boost it and had discussion of eating high potassium diet. B. Hypokalemia is improved. Will correct magnesium 4. Non-cardiac chest pain: A. She has had complaint of sharp chest pain that is aggravated whe n she takes deep breath and sits up. Symptom is better when she lays down. She also comp lained of the trouble breathing on exertion. She was seen at the ED of [facility] 3 weeks ago and again 1 week [...] symptoms. She attributes this to her fibromyalgia. 3.Emphysema/COPD: Not otherwise addressed today 09/17/2017. A. She [...] low, will look at trying an alternate formation of potassium. PLAN: 1. Start Magnesium oxide 400 mg once every day 2. Increase Propanolol 100 mg twice a day 3. Call with blood pressures and results Portions of this chart may have been created with [employer] voice recognition software. Occasi onal wrong-word or [...] [place] | | | | | | [id number] | | | | | | | | +--------+---------+ + + + | 11/24/ | Office | Cardiology | Flores, | | | 2019 | Visit | | SINDHU Erickson [address] | | | | | | [place], | | | | | | [place] [address] | | | | | | [phone] | | | | | | | | +--------+---------+ + + + documented as of this encounter Procedures + +--------+ + + + | Procedure Name | Priori | Date/Time | Associated Diagnosis | Comments | | | ty | | | | + +--------+ + + + | ECG 12 LEAD | Routin | 11/12/2017 | Palpitations | Results for this | | | e | 8:24 AM | Paroxysmal atrial | procedure are in the | | | | PDT | tachycardia (HCC) | results section. | + +--------+ + + + documented in this encounter Results ECG 12 lead (11/12/2017 8:24 AM PDT) + + + + + [...] + + + + | Q-T | 354 | ms | [facility] | | | INTERVAL | | | | | + + + + + + | Q-T | 456 | ms | [facility] | | | INTERVAL | | | | | | (CORRECTED) | | | | | + + + + + + | P WAVE AXIS | 55 | degrees | [facility] | | + + + + + + | QRS AXIS | 57 | degrees | [facility] | | + + + + + + | T AXIS | 67 | degrees | [facility] | | + + + + + + | INTERPRETAT | Normal sinus | | [facility] | | | ION TEXT | rhythmNonspecific ST and | | | | | | T wave | | | | | | abnormalityAbnormal | | | | | | ECGWhen compared with | | | | | | ECG of 13-SEP-2017 | | | | | | 06:27,Borderline | | | | | | criteria for Inferior | | | | | | infarct are no longer | | | | | | presentAxis has shifted | | | | | | to the rightNonspecific | | | | | | T wave abnormality, | | | | | | worse in Anterolateral | | | | | | leadsConfirmed by | | | | | | RUSSELL PAUL, RAFA ([id number]) | | | | | | on 11/14/2017 8:44:33 AM | | | | + + [...] type - Primary | + + | Palpitations | + + | Paroxysmal atrial tachycardia (HCC) Paroxysmal supraventricular tachycardia | + + | Syncope, unspecified syncope type | + + documented in this encounter
--- OUTSIDE RECORDS SUMMARY | ~2019-02-28 | XMS | Encounter Summary ---
Demographics + + + | Address | [address] | | | [place] [address] | + + + | Home Phone [...] Team Providers + +------+ + | Care Tobacco Grader Name | Role | Phone | + [...] + + | 04/18/ | Office | [facility] | Kevin Sandoval, | COPD (chronic | | 2015 | Visit | PULMONARY [address] | MD [address] | obstructive | | | | [place], | [place], [place] | pulmonary disease) | | | | [place] [address] | [address] | ([facility]) (Primary Dx); | | | | [phone] | | GARRY (obstructive | | | [...] MD - 04/18/2014 9:15 AM [facility] Patient Education Prednisone Gastro-resistant tablet Prednisone Oral [...] avoid any side effects. Talk to your medical record consultant regarding the use of this medicine in [...] ta lk to your doctor or health healthcare administrator. You may need to miss a dose [...] this medicine? Visit your doctor or health healthcare administrator for regular checks on your progress. If [...] have surgery, tell your doctor or health healthcare administrator that you hav e taken this medicine within the last twelve months. Ask your doctor or health healthcare administrator about your diet. You may need to lower the amou nt of salt you eat. This medicine may affect blood sugar levels. If you have diabetes, check with your doctor o r health healthcare administrator before you change your diet or the dose of your diabetic medicine . What side effects may I notice from receiving this medicine? Side effects that you should report to your doctor or health healthcare administrator as soon as p ossible: allergic reactions [...] (report to your doctor or health healthcare administrator if they continue or are bothersome): confusion, excitement, restlessness headache nausea, vomiting skin problems, acne, thin and shiny skin trouble sleeping weight gain This list may not describe all possible side effects. Call your doctor for medical advice a bout side effects. You may report side effects to FDA at 8-917-YQF-1743. Where should I keep my medicine? Keep [...] rom the original. Pulmonary Follow Up 04/18/2014 [facility] Rosario Malik is a 49 y.o. female [...] for a COPD exacerbation since our [facility]. They are currently on a daily [...] [facility] [place]) 10/28/2012 Overview: Managed by [facility] [...] 30 tablet, Rfl: 3, Respiratory Therapy Supplies [facility], Please provide patient with necessary CPAP supplies (she did not specify, okay to send order as appropriate) Diagnosis Code(s)327.23 . Length of Nee d 99 months. Please send order to [facility] Disp: 1 each, Rfl: 0, Respiratory Therapy Supplies [facility], Change CPAP back to 11-14 cm H2O. All necessary supplies . No oxygen bleed in. Diagnosis Code(s)327.23. Length of Need: Lifetime. Please send order t o [facility]. This is not a [...] at a pressure of 9 cm H2O. Franklin lent compliance noted. 3. Hypoxemia patient wears [...] | 03/31/ | Office | Pulmonology | Amber, Mukul, MD | | | 2019 | Visit | | [address] | | | | | | [place] | | | | | | [address] | | | | | | | | +--------+---------+ + + + | 11/24/ | Office | Cardiology | Flores, | | | 2019 | Visit | | SINDHU Erickson [address] | | | | | | [place], | | | | | | [place] [address] | | | | | | [phone] | | | | | | | [...]
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
--- OUTSIDE RECORDS SUMMARY | ~2019-02-28 | XMS | Encounter Summary ---
Demographics + + + | Address | [address] | | | [place] [address] | + + + | Home Phone [...] Team Providers + +------+ + | Care Spare Fixer Name | Role | Phone | [...] Alonso MD | | | | | [place], | | | | | | [place] [address] | | | | | | [phone] | | | +--------+--------+ + + + [...] | | | | | | [place] [address] | | | | | | [phone] | | | | | | | | +--------+---------+ + + + documented as of this encounter Visit Diagnoses Not on filedocumented in this encounter"
--- OUTSIDE RECORDS SUMMARY | ~2019-02-28 | XMS | Encounter Summary ---
Demographics + + + | Address | [address] | | | [place] [address] | + + + | Home Phone [...] Team Providers + +------+ + | Care Treadle Cut Off Saw Operator Name | Role | Phone | [...] | 07/29/ | Telephone | [facility] | Weber, Andriy | Other | | 2018 | | [address] | MD Robert [address] | | | | | [place] | [facility] | | | | | [address] | [place] [address] | | | | | [phone] | [phone] | | | | | | | [...] [place] | | | | | | [address] | | | | | | | | +--------+---------+ + + + | 11/24/ | Office | Cardiology | Flores, | | | 2019 | Visit | | [address] | | | | | | [place] | | | | | | [place] [address] | | | | | | [phone] | | | | | | | | +--------+---------+ + + + documented as of this encounter Visit Diagnoses Not on filedocumented in this encounter"
--- OUTSIDE RECORDS SUMMARY | ~2019-02-28 | XMS | Encounter Summary ---
Demographics + + + | Address | [address] | | | [place] [address] | + + + | Home Phone [...] Team Providers + +------+ + | Care Position Classifier Name | Role | Phone | + [...] + | 05/01/ | Telephone | [facility] | Lencho Goss MD | Other | | 2015 | | GASTROENTEROLOGY | [address], [place] | | | | | [address] [place] | [address] [place], [place] | | | | | [address] [place], [place] | [address] | | | | | [address] | | | | | | [phone] | | | +--------+ + + + [...] [place] | | | | | | [address] | | | | | | | | +--------+---------+ + + + | 11/24/ | Office | Cardiology | Flores, | | | 2019 | Visit | | [address] Ericks[address] | | | | | | [place], | | | | | | [place] [address] | | | | | | [phone] | | | | | | | | +--------+---------+ + + + documented as of this encounter Visit Diagnoses Not on filedocumented in this encounter"
--- OUTSIDE RECORDS SUMMARY | ~2019-02-28 | XMS | Encounter Summary ---
Demographics + + + | Address | [address] | | | [place] [address] | + + + | Home Phone [...] Team Providers + +------+ + | Care Cocktail Waitress Name | Role | Phone | + [...] + + | 02/22/ | Office | [facility] [place] | Offenstein, | COPD exacerbation | | 2012 | Visit | PULMONARY [address] | Loreta Alonso MD | ([facility]) (Primary Dx); | | | | [place], | | GARRY (obstructive | | | | [place] [address] | | sleep apnea); | | | | [phone] | | Central sleep apnea; | | [...] MD [place] Pulmonary and Critical Care [facility] [address] [place], [address] [facility] Rosario Malik is a 48 y.o. [...] 1995 [facility] Social History: History Social History Marital Status: Single Spouse Name: N/A Number of Children: 1 Years of Education: 13 Occupational History [employer] Home Social History Main Topics Smoking status: [...] Need 99 months. Please send order to [facility]. 1 each 0 Respiratory Therapy Supplies [facility] Change CPAP back to 11-14 cm H2O. All necessary suppl ies. No oxygen bleed in. Diagnosis Code(s)327.23. Length of Need: Lifetime. Please send orde r to [facility]. This is [...] Data: CPAP Data: Dates: 01/23/13 Machine type: Selo Reserva S9 auto CPAP Home Health Company: [employer] CPAP Pressure: 11-14 cm H2O cmH2O Median [...] made to ensure accuracy; however, inadvertent computerized patrol lady errors may be pre sent. documented in [...] | | | [place] | | | | | | [address] | | | | | | | | +--------+---------+ + + + | 11/24/ | Office | Cardiology | Flores, | | | 2019 | Visit | | SINDHU Erickson [address] | | | | | | [place], | | | | | | [place] [address] | | | | | | [phone] | | | | | | | [...]
--- OUTSIDE RECORDS SUMMARY | ~2019-02-28 | XMS | Encounter Summary ---
Demographics + + + | Address | [address] | | | [place] [address] | + + + | Home Phone [...] Team Providers + +------+ + | Care Trackwalker Name | Role | Phone | + [...] RN | | | | | [place] | | | | | | [place] | | | | | | [address] | | | | | | [phone] | | | +--------+ + + + [...] [place] | | | | | | [address] | | | | | | | | +--------+---------+ + + + | 11/24/ | Office | Cardiology | Flores, | | | 2020 | Visit | | SINDHU Erickson [address] | | | | | | [place], | | | | | | [place] [address] | | | | | | [phone] | | | | | | | | +--------+---------+ + + + documented as of this encounter Visit Diagnoses Not on filedocumented in this encounter"
--- OUTSIDE RECORDS SUMMARY | ~2019-02-28 | XMS | Encounter Summary ---
Demographics + + + | Address | [address] | | | [place] [address] | + + + | Home Phone [...] Team Providers + +------+ + | Care Pensionholder Information Clerk Name | Role | Phone | [...] + | 07/24/ | Telephone | [facility] | Meghan Garcia MD | Follow-up | | 2019 | | SLEEP DISORDER [address] | [address] | | | | | [place] | [place] | | | | | [place] [address] | [address] | | | | | [phone] | | | +--------+ + + + [...] [place] | | | | | | [address] | | | | | | | | +--------+---------+ + + + | 11/24/ | Office | Cardiology | Flores, | | | 2019 | Visit | | [address] | | | | | | [place], | | | | | | [place] [address] | | | | | | [phone] | | | | | | | | +--------+---------+ + + + documented as of this encounter Visit Diagnoses Not on filedocumented in this encounter"
--- OUTSIDE RECORDS SUMMARY | ~2019-02-28 | XMS | Encounter Summary ---
Demographics + + + | Address | [address] | | | [place] [address] | + + + | Home Phone [...] Team Providers + +------+ + | Care Fine Arts Instructor Name | Role | Phone | [...] [address] | | | | | [place], | [place], | | | | | [place] [address] | [place] [address] | | | | | [phone] | [phone] | | | | | | | [...] | | | | [place], [place] | | | | | | [address] | | | | | | | | +--------+---------+ + + + | 11/24/ | Office | Cardiology | Flores, | | | 2019 | Visit | | SINDHU Erickson [address] | | | | | | [place], | | | | | | [place] [address] | | | | | | [phone] | | | | | | | [...]
--- OUTSIDE RECORDS SUMMARY | ~2019-02-28 | XMS | Encounter Summary ---
Demographics + + + | Address | [address] | | | [place] [address] | + + + | Home Phone [...] Team Providers + +------+ + | Care Bale Piler Name | Role | Phone | + +------+ + | Juan Cherry DO | PCP | | + +------+ + Encounter Details +--------+ + + + + | Date | Type | Department | Care Team | Description | +--------+ + + + + | 11/08/ | Hospital | [facility] | Conversion | Asthma, moderate | | 2015 | Encounter | [facility] [address] | Transaction, | persistent, | | | | [address] | Provider Unknown | uncomplicated | | | | [place], [place] | [phone] | | | | | [address] | | | | | | [phone] | | | +--------+ + + + [...] | | | | send order to [facility] | | | | | [...] [place] | | | | | | [address] | | | | | | | | +--------+---------+ + + + | 11/24/ | Office | Cardiology | Flores | | | 2019 | Visit | | SINDHU Erickson [address] | | | | | | [place], | | | | | | [place] [address] | | | | | | [phone] | | | | | | | [...]
--- OUTSIDE RECORDS SUMMARY | ~2019-02-28 | XMS | Encounter Summary ---
Demographics + + + | Address | [address] | | | [place] [address] | + + + | Home Phone [...] Team Providers + +------+ + | Care Paramedic Name | Role | Phone | [...] sleep | MD [address] | | | | | apnea) | [address] | [place], | | | | | [place] | [place], | [place] [address] | | | | | sleep apnea | [place] [address] | Phone: | | | | | | | [phone] | | | | | | | Fax: | | | | | | | [phone] | +--------+ + + + + + Encounter Details +--------+---------+ + + + | Date | Type | Department | Care Team | Description | +--------+---------+ + + + | 04/07/ | Office | [facility] | Maxim Delgado PA | GARRY on CPAP (Primary | | 2012 | Visit | SLEEP DISORDER [address] | [address] | Dx); Organic | | | | [address] [place] | [place], [place] | insomnia, | | | | [place] [address] | [address] | unspecified | | | | [phone] | | | +--------+---------+ + + + [...] S9 with full face mask obtained from: [facility] pressure is: 8-12 cm 95%: 11.9 [...] She went to get that mask from [facility], but it has been discontinued. The [...] months, sooner prn. Fifteen minutes were spent [id number], wi th the majority of time spent [...] [place] | | | | | | [address] | | | | | | | | +--------+---------+ + + + | 11/24/ | Office | Cardiology | [place], | | | 2019 | Visit | | SINDHU Erickson W | | | | | | [place] | | | | | | [place] [address] | | | | | | [phone] | | | | | | | | +--------+---------+ + + + documented as of this encounter Visit Diagnoses + + | Diagnosis | + + | GARRY on CPAP - Primary Obstructive sleep apnea (adult) (pediatric) | + + | Organic insomnia, unspecified | + + documented in this encounter"
--- OUTSIDE RECORDS SUMMARY | ~2019-02-28 | XMS | Encounter Summary ---
Demographics + + + | Address | [address] | | | [place] [address] | + + + | Home Phone [...] Team Providers + +------+ + | Care Rpg Programmer Name | Role | Phone | [...] [address] | | | | | [place], | [place], | | | | | [place] [address] | [place] [address] | | | | | [phone] | [phone] | | | | | | | [...] | | | | | | [place] [address] | | | | | | [phone] | | | | | | | | +--------+---------+ + + + documented as of this encounter Visit Diagnoses Not on filedocumented in this encounter"
--- OUTSIDE RECORDS SUMMARY | ~2019-02-28 | XMS | Encounter Summary ---
Demographics + + + | Address | [address] | | | [place] [address] | + + + | Home Phone [...] Team Providers + +------+ + | Care Washing Tub Operator Name | Role | Phone | [...] | 02/22/ | Off-Site | [facility] [place] | [place], | Tachyarrhythmia | | 2013 | Visit | CARDIOLOGY [address] | SINDHU Erickson [address] | (Primary Dx); | | | | [place], | [place], | Palpitations; Other | | | | [place] [address] | [place] [address] | chest pain | | | | [phone] | [phone] | | | | | | | [...] other kind of bleeding. Fever over 101.0F. 1612-6714 [employer]. [address] [place] [address], [place] [address]. All righ ts reserved. This information is [...] mg by mouth Daily. Respiratory Therapy Supplies [facility] Incentive spirometer. Please provide instructions in use. Dx: 848.8 MADELEINE: 3 months 1 each 99 Respiratory Therapy Supplies [facility] Please provide patient with necessary CPAP supplies ( she did not specify, okay to send order as appropriate) Diagnosis Code(s)327.23 . Length of Need 99 months. Please send order to [facility]. 1 each 0 Respiratory Therapy Supplies [facility] Change CPAP back to 11-14 cm H2O. [...] She is in a class II-III of [place] Heart Associ ation functional class. There is [...] and ventricular function don e at the [facility]. LVEF 78%. C. Holter Monitor 08/16/13 [...] this chart may have been created with [employer] voice recognition software. Occasi onal wrong-word or [...] | | | | | | [place] [address] | | | | | | [phone] | | | | | | | [...] Rosario Malik, (1965) MEDICAL RECORD NUMBER: | [facility] | | [id number] DATE OF PROCEDURE: 02/28/2014 BACKPACKERS MANAGER: | - IMAGING | | Jared Mcdonough [...] Malik, (1965) OF | | PROCEDURE: 02/28/2014PRIMARY BOAT OUTBOARD ENGINE MECHANIC: Jared Mcdonough MD PROCEDURES | | PERFORMED:Coronary [...] + + | [address] | [address] | [place] | [phone] | | [facility] | | [address] | | | - IMAGING | | | | + + + + + documented in this encounter Visit Diagnoses + + | Diagnosis | + + | Tachyarrhythmia - Primary Tachycardia, unspecified | + + | Palpitations | + + | Other chest pain | + + documented in this encounter
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
--- OUTSIDE RECORDS SUMMARY | ~2019-02-28 | XMS | Encounter Summary ---
Demographics + + + | Address | [address] | | | [place] [address] | + + + | Home Phone [...] Team Providers + +------+ + | Care Hurl Shaker Name | Role | Phone | + +------+ + | Juan Cherry DO | PCP | | + +------+ + Encounter Details +--------+---------+ + + + | Date | Type | Department | Care Team | Description | +--------+---------+ + + + | 10/31/ | Office | [facility] | Andriy Weber | Interstitial | | 2016 | Visit | [address] | MD [address] | cystitis (Primary | | | | [place], [place] | [address] [place] | Dx) | | | | [address] | [place] [address] | | | | | [phone] | [phone] | | | | | | | [...] have not thoroughly proofread this note, and pasteurizer err ors may occur. documented in th is encounter Plan of Treatment +--------+---------+ + + + | Date | Type | Specialty | Care Team | Description | +--------+---------+ + + + | 03/31/ | Office | Pulmonology | Mukul Clark MD | | | 2019 | Visit | | [address] | | | | | | [place], [place] | | | | | | [address] | | | | | | | | +--------+---------+ + + + | 11/24/ | Office | Cardiology | [place], | | | 2019 | Visit | | SINDHU Erickson [address] | | | | | | [place], | | | | | | [place] [address] | | | | | | [phone] | | | | | | | | +--------+---------+ + + + documented as of this encounter Visit Diagnoses + + | Diagnosis | + + | Interstitial cystitis - Primary Chronic interstitial cystitis | + + documented in this encounter"
--- OUTSIDE RECORDS SUMMARY | ~2019-02-28 | XMS | Encounter Summary ---
Demographics + + + | Address | [address] | | | [place] [address] | + + + | Home Phone [...] Team Providers + +------+ + | Care Top Lift Compressor Name | Role | Phone | + +------+ + PCP | Unavailable | + +------+ + Encounter Details +--------+ + + + + | Date | Type | Department | Care Team | Description | +--------+ + + + + | 01/23/ | Hospital | [facility] | Ozzy Delcid, | | | 2009 | Encounter | MED CTR XRAY [address] | [address] | | | | | [place] | [place], [place] | | | | | [place] [address] | [address] | | | | | [phone] | | | +--------+ + + + [...] [place] | | | | | | [address] | | | | | | | | +--------+---------+ + + + | 11/24/ | Office | Cardiology | [place], | | | 2019 | Visit | | SINDHU Erickson [address] | | | | | | [place], | | | | | | [place] [address] | | | | | | [phone] | | | | | | | | +--------+---------+ + + + documented as of this encounter Visit Diagnoses Not on filedocumented in this encounter"
--- OUTSIDE RECORDS SUMMARY | ~2019-02-28 | XMS | Encounter Summary ---
Demographics + + + | Address | [address] | | | [place] [address] | + + + | Home Phone [...] Team Providers + +------+ + | Care Foot Doctor Name | Role | Phone | [...] | | | | | pulmonary | [address] | [address] | | | | | disease, | [place], | [place], [place] | | | | | unspecified | [place] [address] | [address] | | | | | COPD type | Phone: | Phone: | | | | | ([facility]) | [phone] | [phone] | | | | | | Fax: | Fax: | | | | | | [phone] | [phone] | +--------+ + + + + + Encounter Details +--------+ + + + + | Date | Type | Department | Care Team | Description | +--------+ + + + + | 02/03/ | Orders Only | [facility] [place] | Jared Mcdonough, | Chronic obstructive | | 2015 | | CARDIOLOGY [address] | [address] | pulmonary disease, | | | | [place], | [place], | unspecified [place] | | | | [place] [address] | [place] [address] | type (HCC) (Primary | | | | [phone] | [phone] | Dx) | | | | | [...] [place] | | | | | | [address] | | | | | | | | +--------+---------+ + + + | 11/24/ | Office | Cardiology | [place], | | | 2019 | Visit | | SINDHU Erickson [address] | | | | | | [place], | | | | | | [place] [address] | | | | | | [phone] | | | | | | | | +--------+---------+ + + + + + +--------+ + + | Name | Type | Priori | Associated Diagnoses | Order Schedule | | | | ty | | | + + +--------+ + + | AMB REFERRAL TO [facility] | Outpatient | Routin | Chronic | [...]
--- OUTSIDE RECORDS SUMMARY | ~2019-02-28 | XMS | Encounter Summary ---
Demographics + + + | Address | [address] | | | [place] [address] | + + + | Home Phone [...] Team Providers + +------+ + | Care Straightening Machine Operator Name | Role | Phone [...] [address] | oximetry) | | | | [place], | [place] | | | | | [place] [address] | [address] | | | | | [phone] | | | +--------+ + + + [...] | | | | | | [place] [address] | | | | | | [phone] | | | | | | | | +--------+---------+ + + + documented as of this encounter Visit Diagnoses Not on filedocumented in this encounter"
--- OUTSIDE RECORDS SUMMARY | ~2019-02-28 | XMS | Encounter Summary ---
Demographics + + + | Address | [address] | | | [place] [address] | + + + | Home Phone [...] Providers + +------+ + | Care Director Community Center Name | Role | Phone | + [...] Destinee ChirinosdrewChris | | | | | [phone] | [place] [address] | | +--------+ + + + + [...] [place] | | | | | | [address] | | | | | | | | +--------+---------+ + + + | 11/24/ | Office | Cardiology | [place], | | | 2019 | Visit | | SINDHU Erickson [address] | | | | | | [place], | | | | | | [place] [address] | | | | | | [phone] | | | | | | | [...]
--- OUTSIDE RECORDS SUMMARY | ~2019-02-28 | XMS | Encounter Summary ---
Demographics + + + | Address | [address] | | | [place] [address] | + + + | Home Phone [...] Providers + +------+ + | Care Senior Safety Support Manager Name | Role | Phone | [...] | | | | | [address] | [address] [place], [place] | | | | | [place], [place] | [address] | | | | | [address] | | | | | | [phone] | | | +--------+ + + + [...] +----+---+ + + | | 0 | [place] | | | | 7 | 43-degrees [...] 11/22/15 1025 by | | eral | kxth-yaa-hlraum catheter system; | Kelsie Gandhi RN | [...] [place] | | | | | | [address] | | | | | | | | +--------+---------+ + + + | 11/24/ | Office | Cardiology | [place], | | | 2020 | Visit | | SINDHU Erickson [address] | | | | | | [place], | | | | | | [place] [address] | | | | | | [phone] | | | | | | | [...]
--- OUTSIDE RECORDS SUMMARY | ~2019-02-28 | XMS | Encounter Summary ---
Demographics + + + | Address | [address] | | | [place] [address] | + + + | Home Phone [...] + +------+ + | Care Sales Support Consultant Name | Role | Phone | [...] | 01/13/ | Office | [facility] [place] | [place], | Central sleep apnea; | | 2011 | Visit | PULMONARY [address] | Loreta Alonso MD | Obstructive sleep | | | | [place], | | apnea; Insomnia | | | | [place] [address] | | | | | | [phone] | | | +--------+---------+ + + + [...] in this encounter Patient Instructions Patient Instructions Lortea London MD - 01/14/2012 10:34 AM PSTADVANCED [...] | | | | | [place] [address] | | | | | | [phone] | | | | | | | [...]
--- OUTSIDE RECORDS SUMMARY | ~2019-02-28 | XMS | Encounter Summary ---
Demographics + + + | Address | [address] | | | [place] [address] | + + + | Home Phone [...] Team Providers + +------+ + | Care Drums Teacher Name | Role | Phone | [...] | RN | | | | | [place], | | | | | | [place] [address] | | | | | | [phone] | | | +--------+ + + + [...] [place] | | | | | | [address] | | | | | | | | +--------+---------+ + + + | 11/24/ | Office | Cardiology | [place], | | | 2019 | Visit | | SINDHU Erickson [address] | | | | | | [place], | | | | | | [place] [address] | | | | | | [phone] | | | | | | | | +--------+---------+ + + + documented as of this encounter Visit Diagnoses Not on filedocumented in this encounter"
--- OUTSIDE RECORDS SUMMARY | ~2019-02-28 | XMS | Encounter Summary ---
Demographics + + + | Address | [address] | | | [place] [address] | + + + | Home Phone [...] Providers + +------+ + | Care Development Editor Name | Role | Phone | + +------+ + | Juan Cherry DO | PCP | | + +------+ + Encounter Details +--------+ + + + + | Date | Type | Department | Care Team | Description | +--------+ + + + + | 09/09/ | Hospital | [facility] | Conversion | Pain | | 2015 | Encounter | CONVERSION [address] | Transaction, | | | | | [address] | Provider Unknown | | | | | [place], [place] | [phone] | | | | | [address] | | | | | | [phone] | | | +--------+ + + + [...] | | | send order to [facility] | | | | | | | [facility]. | | | | | | | [...] | | | | [place] | | | | | | [address] | | | | | | | | +--------+---------+ + + + | 11/24/ | Office | Cardiology | [place], | | | 2019 | Visit | | SINDHU Erickson [address] | | | | | | [place], | | | | | | [place] [address] | | | | | | [phone] | | | | | | | [...]
--- OUTSIDE RECORDS SUMMARY | ~2019-02-28 | XMS | Encounter Summary ---
Demographics + + + | Address | [address] | | | [place] [address] | + + + | Home Phone [...] Team Providers + +------+ + | Care Jumpbasting Armhole Baster Name | Role | Phone | + +------+ + | Juan Cherry DO | PCP | | + +------+ + Encounter Details +--------+ + + + + | Date | Type | Department | Care Team | Description | +--------+ + + + + | 02/27/ | Hospital | [facility] | Mukul Clark MD | Pulmonary emphysema, | | 2017 | Encounter | MED CTR PULMONARY | [address] | unspecified | | | | FUNCTION [address] | [address] [place] | emphysema type (HCC) | | | | [place], | [address] | | | | | [place] [address] | | | | | | [phone] | | | +--------+ + + + [...] | | | | | order to [facility]. | | | | | [...] | | | | | | | [facility]. | | | | | | [...] | 0 | 10/13/19 | | | Xhvekczjcr-NHLZ-Sppo | mouth as needed. | | | 16 | 7 | | -Cod [id number] MG | | | | | | [...] [place] | | | | | | [id number] | | | | | | | | +--------+---------+ + + + | 11/24/ | Office | Cardiology | [place], | | | 2019 | Visit | | SINDHU Erickson [address] | | | | | | [place] | | | | | | [place] [address] | | | | | | [phone] | | | | | | | [...] | | Romi Sandoval MD 02/29/2016 6:30[facility] | | |IMPRESSION: Spirometry is consistent [...] Sandoval MD 02/29/2016 6:30 | | |[facility] | | + + + documented [...]
--- OUTSIDE RECORDS SUMMARY | ~2019-02-28 | XMS | Encounter Summary ---
Demographics + + + | Address | [address] | | | [place] [address] | + + + | Home Phone [...] Team Providers + +------+ + | Care Rotary Driller Prospecting Name | Role | Phone | + [...] + + | 04/03/ | Office | [facility] | [place], | Abnormal stress test | | 2017 | Visit | CARDIOLOGY [address] | SINDHU Erickson [address] | (Primary Dx); | | | | [place], | [place], | Paroxysmal atrial | | | | [place] [address] | [place] [address] | tachycardia (HCC) | | | | [phone] | [phone] | | | | | | | [...] 4 hours as needed. 360 mL 5 Hfrnpxvkql-HUCG-Cyvb-Cod [id number] MG CAPS Take 1 capsule by mouth [...] this da rigoberto Respiratory Therapy Supplies [facility] Please provide patient with necessary CPAP supplies ( she did not specify, okay to send order as appropriate) Diagnosis Code(s)327.23 . Length of Need 99 months. Please send order to [facility]. 1 each 0 Respiratory Therapy Supplies [facility] Change CPAP back to 11-14 cm H2O. All necessary suppl ies. No oxygen bleed in. Diagnosis Code(s)327.23. Length of Need: Lifetime. Please send orde r to [facility]. This is not a new order, [...] longer present Confirmed by RAFA WELLS MD ([id number]) on 08/06/2015 9:42:29 AM LAB RESULTS reviewed during visit today primarily from [facility]: LIPID Lab Results Component Value Date [...] was seen at the ED of [facility] 3 weeks ago and again [...] She is in a class II of [place] [facility] on functional class. There is [...] v entricular function done at the [facility]. LVEF 78%. C. Holter Monitor [...] this chart may have been created with [employer] voice recognition software. Occasi onal wrong-word or [...] [place] | | | | | | [address] | | | | | | | | +--------+---------+ + + + | 11/24/ | Office | Cardiology | [place], | | | 2019 | Visit | | SINDHU Erickson [address] | | | | | | [place], | | | | | | [place] [address] | | | | | | [phone] | | | | | | | [...]
--- OUTSIDE RECORDS SUMMARY | ~2019-02-28 | XMS | Encounter Summary ---
Demographics + + + | Address | [address] | | | [place] [address] | + + + | Home Phone [...] Team Providers + +------+ + | Care Towel Stretcher Name | Role | Phone | + [...] Tachycardia | MD Jared | [address] | | | | | Procedures | [address] | [place], | | | | | ECHO | [address] | [place] | | | | | Complete | [place], | [address] | | | | | | [place] [address] | Phone: | | | | | | Phone: | [phone] | | | | | | [phone] | Fax: | | | | | | Fax: | [phone] | | | | | | [phone] | | +--------+--------+ + + + + [...] | | unspecified | [place] | [address] | | | | | HIGH PULSE | [place], [place] | [place], | | | | | - 2ND DX | [address] | [place] [address] | | | | | Procedures | Phone: | Phone: | | | | | [place] OFFICE | [phone] | [phone] | | | | | OUTPATIENT | Fax: | Fax: | | | | | VISIT 25 | [phone] | [phone] | | | | | MINUTES | [...] CARDIOLOGY [address] | MD [address] | Dx) | | | | [address] [place], | [place], | | | | | [place] [address] | [place] [address] | | | | | [phone] | [phone] | | | | | | | [...] tachycardia. 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 [...] COPD (chronic obstructive pulmonary disease) ([facility]) Healthcare maintenance Preventative health care GARRY (obstructive sleep apnea) Multiple personality disorder GERD (gastroesophageal reflux disease) Diverticulosis Insomnia Sprain of chest wall Benign neoplasm of pituitary gland and craniopharyngeal duct (pouch) ([facility]) Status post total hysterectomy Irritable colon Hypoxemia ([facility]) Allergic rhinitis Tachycardia MEDICAL, SURGICAL, AND PERSONAL HISTORY Past Surgical History Procedure Date Hammertoe repair right sided Hiatal hernia repair Hiatal hernia Kirk and bso Ovarian cysts, not cancer Colonoscopy 03/2010 Colonoscopy 1995 [facility] Family History Problem Relation Age of [...] 1 Years of Education: 13 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 Respiratory Therapy Supplies [facility] Incentive spirometer. Please provide instructions in use. Dx: 848.8 MADELEINE: 3 months 1 each 99 Respiratory Therapy Supplies [facility] Please provide patient with necessary CPAP supplies ( she did not specify, okay to send order as appropriate) Diagnosis Code(s)327.23 . Length of Need 99 months. Please send order to [facility]. 1 each 0 Respiratory Therapy Supplies [facility] Change CPAP back to 11-14 cm H2O. All necessary suppl ies. No oxygen bleed in. Diagnosis Code(s)327.23. Length of Need: Lifetime. Please send orde r to [facility] [place] [facility]. This is not a new [...] PLT 343 07/14/2013 I reviewed records from [facility] for office visit on 08/02/13. ASSESSMENT: [...] made to ensure accuracy; however, inadvertent computerized merchant mariner errors may be pre sent. Electronically signed by: Jared Mcdonough MD [facility] 08/12/2013 9:31 documented in this encounter Plan [...] [place] | | | | | | [id number] | | | | | | | | +--------+---------+ + + + | 11/24/ | Office | Cardiology | [place], | | | 2019 | Visit | | SINDHU Erickson [address] | | | | | | [place], | | | | | | [place] [address] | | | | | | [phone] | | | | | | | [...]
--- OUTSIDE RECORDS SUMMARY | ~2019-02-28 | XMS | Encounter Summary ---
Demographics + + + | Address | [address] | | | [place] [address] | + + + | Home Phone [...] Team Providers + +------+ + | Care Produce Assistant Name | Role | Phone | [...] | | | | unspecified | | [address] | | | | | laterality | | Phone: | | | | | Primary | | [phone] | | | | | localized | | Fax: | | | | | osteoarthros | | [phone] | | | | | is of hand, | | | | | | | unspecified | | | | | | | laterality | | | | | | | [M19.049 | | | | | | | Procedures | | | | | | | [place] REPAIR | | | | | | [...] | J, DO [address] | Arthroplasty, tendon | | | | [address] | [address] [place], [place] | interposition | | | | [place], [place] | [address] | | | | | [address] | [phone] | | | | | [phone] | | | +--------+---------+ + + + [...] what medicines and drugsyou take. This includes gtaj-yqd-dii nter medicines, herbs, supplements, alcohol or other [...] adam p you safe. Date Last Reviewed: 01/25/201619991307-6462 [employer]. [address] [place] [address]. All righ ts reserved. This information is not intended as a substitute for professional medical care. Always follow your healthcare professional's instructions. [facility] Post-op Instructions - Thumb Surgery The following instructions are meant to guide you following surgery until your first post-o perative visit 7-12 days later. For any problems or questions, please call our office at [phone], Friday through Friday, 9:00 am - 5:00 [...] that you may have received from the [facility], advice from friends, family members, ecclesiastical leaders, grocery store clerks, fox lee, Anu, Dr. Jain, Dr. Weinstein, sports heroes, etc. If unsure, please call our office. Thank you, Jesus Brady D.O. [facility] [address] [place] [address] Your post op appointment is scheduled for Friday06/29/18 at 9:15am. Please check in at 8:45 am for X-rays at the [facility]. documented in this encounter Medications at [...] | | | | | [facility]. | | | | | | [...] | 1 | 03/13/19 | | | (SORAYAOR-CON M20) 20 | mouth Daily. | tablet [...] [place] | | | | | | [address] | | | | | | | | +--------+---------+ + + + | 11/24/ | Office | Cardiology | [place], | | | 2019 | Visit | | SINDHU Erickson [address] | | | | | | [place], | | | | | | [place] [address] | | | | | | [phone] | | | | | | | [...] + documented in this encounter Results [place] C-Arm Stats No Charge (06/18/2018 3:21 PM PDT) [...] [address] | [place] | [phone] | | [facility] | | [address] | | | - LABORATORY | | [...]
--- OUTSIDE RECORDS SUMMARY | ~2019-02-28 | XMS | Encounter Summary ---
Demographics + + + | Address | [address] | | | [place] [address] | + + + | Home Phone [...] Team Providers + +------+ + | Care Cilnical Scientist Name | Role | Phone | + +------+ + | Juan Cherry DO | PCP | | + +------+ + Encounter Details +--------+ + + + + | Date | Type | Department | Care Team | Description | +--------+ + + + + | 08/06/ | Hospital | [facility] | Conversion | Unknown cause of | | 2017 | Encounter | CONVERSION DEP [address] | Transaction, | injury, initial | | | | [address] | Provider Unknown | encounter | | | | [place] | [phone] | | | | | [address] | | | | | | [phone] | | | +--------+ + + + [...] [place] | | | | | | [address] | | | | | | | | +--------+---------+ + + + | 11/24/ | Office | Cardiology | [place], | | | 2019 | Visit | | SINDHU Erickson [address] | | | | | | [place], | | | | | | [place] [address] | | | | | | [phone] | | | | | | | [...]
--- OUTSIDE RECORDS SUMMARY | ~2019-02-28 | XMS | Encounter Summary ---
Demographics + + + | Address | [address] | | | [place] [address] | + + + | Home Phone [...] Providers + +------+ + | Care Financial Aid Advisor Name | Role | Phone | + +------+ + | Ozzy Delcid MD | PCP | | + +------+ + Encounter Details +--------+ + + + + | Date | Type | Department | Care Team | Description | +--------+ + + + + | 10/14/ | Hospital | [facility] | Off[place], | | | 2011 | Encounter | MED CTR SLEEP | Loreta Alonso MD | | | | | CENTER [address] | | | | | | [place] | | | | | | [address] | | | | | | [phone] | | | +--------+ + + + [...] [place] | | | | | | [address] | | | | | | | | +--------+---------+ + + + | 11/24/ | Office | Cardiology | [place], | | | 2019 | Visit | | SINDHU Erickson [address] | | | | | | [place], | | | | | | [place] [address] | | | | | | [phone] | | | | | | | | +--------+---------+ + + + documented as of this encounter Visit Diagnoses Not on filedocumented in this encounter"
--- OUTSIDE RECORDS SUMMARY | ~2019-02-28 | XMS | Encounter Summary ---
Demographics + + + | Address | [address] | | | [place] [address] | + + + | Home Phone [...] Team Providers + +------+ + | Care Hog Tender Name | Role | Phone | [...] + + | 11/03/ | Telephone | [facility] | Kevin [place]oval, | Shortness of Breath | | 2013 | | PULMONARY [address] | MD [address] | | | | | [place], | [place] | | | | | [place] [address] | [address] | | | | | [phone] | | | +--------+ + + + [...] | | | | | | [place] [address] | | | | | | [phone] | | | | | | | | +--------+---------+ + + + documented as of this encounter Visit Diagnoses Not on filedocumented in this encounter"
--- OUTSIDE RECORDS SUMMARY | ~2019-02-28 | XMS | Encounter Summary ---
Demographics + + + | Address | [address] | | | [place] [address] | + + + | Home Phone [...] Team Providers + +------+ + | Care Tar Chaser Name | Role | Phone | + [...] medication) | | | | [place] | THOM OLMED[facility] | | | | | [address] | [place] [address] | | | | | [phone] | [phone] | | | | | | | [...] [place] | | | | | | [address] | | | | | | | | +--------+---------+ + + + | 11/24/ | Office | Cardiology | [place], | | | 2019 | Visit | | SINDHU Erickson [address] | | | | | | [place], | | | | | | [place] [address] | | | | | | [phone] | | | | | | | | +--------+---------+ + + + documented as of this encounter Visit Diagnoses Not on filedocumented in this encounter"
--- OUTSIDE RECORDS SUMMARY | ~2019-02-28 | XMS | Encounter Summary ---
Demographics + + + | Address | [address] | | | [place] [address] | + + + | Home Phone [...] Team Providers + +------+ + | Care Executive Coach Name | Role | Phone | [...] Alonso MD | | | | | [place], | | | | | | [place] [address] | | | | | | [phone] | | | +--------+ + + + [...] [place] | | | | | | [address] | | | | | | | | +--------+---------+ + + + | 11/24/ | Office | Cardiology | [place], | | | 2019 | Visit | | SINDHU Erickson [address] | | | | | | [place], | | | | | | [place] [address] | | | | | | [phone] | | | | | | | | +--------+---------+ + + + documented as of this encounter Visit Diagnoses Not on filedocumented in this encounter"
--- OUTSIDE RECORDS SUMMARY | ~2019-02-28 | XMS | Encounter Summary ---
Demographics + + + | Address | [address] | | | [place] [address] | + + + | Home Phone [...] Team Providers + +------+ + | Care Vice President Payer Name | Role | Phone | + [...] | +--------+ + + + + | 09/06/ | Telephone | [facility] | Kevin Sandoval, | Other (increased | | 2014 | | PULMONARY [address] | MD [address] | shortness of breath) | | | | [place], | [place], [place] | | | | | [place] [address] | [address] | | | | | [phone] | | | +--------+ + + + [...] [place] | | | | | | [address] | | | | | | | | +--------+---------+ + + + | 11/24/ | Office | Cardiology | [place], | | | 2019 | Visit | | SINDHU Erickson [address] | | | | | | [place], | | | | | | [place] [address] | | | | | | [phone] | | | | | | | | +--------+---------+ + + + documented as of this encounter Visit Diagnoses Not on filedocumented in this encounter"
--- OUTSIDE RECORDS SUMMARY | ~2019-02-28 | XMS | Encounter Summary ---
Demographics + + + | Address | [address] | | | [place] [address] | + + + | Home Phone [...] Team Providers + +------+ + | Care Examiner Rating Clerk Name | Role | Phone | [...] RN | | | | | [place] | | | | | | [place] | | | | | | [address] | | | | | | [phone] | | | +--------+ + + + [...] [place] | | | | | | [address] | | | | | | | | +--------+---------+ + + + | 11/24/ | Office | Cardiology | [place], | | | 2020 | Visit | | SINDHU Erickson [address] | | | | | | [place], | | | | | | [place] [address] | | | | | | [phone] | | | | | | | | +--------+---------+ + + + documented as of this encounter Visit Diagnoses Not on filedocumented in this encounter"
--- OUTSIDE RECORDS SUMMARY | ~2019-02-28 | XMS | Encounter Summary ---
Demographics + + + | Address | [address] | | | [place] [address] | + + + | Home Phone [...] Team Providers + +------+ + | Care Access Consultant Name | Role | Phone | [...] + | 09/08/ | Office | [facility] | Kevin Sandoval, | COPD (chronic | | 2015 | Visit | PULMONARY [address] | MD [address] | obstructive | | | | [place], | [place], [place] | pulmonary disease) | | | | [place] [address] | [address] | ([facility]) (Primary Dx); | | | | [phone] | | GARRY (obstructive | | | [...] your ankles gets worse Dizziness or weakness 8567-5392 [employer]. [address] [place] [address]. All righ ts reserved. This information is [...] duct (pouch) (HCC) 10/28/2012 Overview: Managed by [facility] along [...] 99 months. Please send order to [facility] Disp: 1 each, Rfl: 0 Respiratory Therapy Supplies MISC, Change CPAP back to 11-14 cm H2O. All necessary supplies . No oxygen bleed in. Diagnosis Code(s)327.23. Length of Need: Lifetime. Please send order t [facility]. This is not [...] | | | | [place] | | | | | | [address] | | | | | | | | +--------+---------+ + + + | 10/01/ | Office | Cardiology | [place], | | | 2019 | Visit | | SINDHU Erickson [address] | | | | | | [place], | | | | | | [place] [address] | | | | | | [phone] | | | | | | | [...]
--- OUTSIDE RECORDS SUMMARY | ~2019-02-28 | XMS | Encounter Summary ---
Demographics + + + | Address | [address] | | | [place] [address] | + + + | Home Phone [...] Providers + +------+ + | Care Project Finance Analyst Name | Role | Phone | + +------+ + PCP | Unavailable | + +------+ + Encounter Details +--------+ + + + + | Date | Type | Department | Care Team | Description | +--------+ + + + + | 07/26/ | Hospital | [facility] | Elda Miranda | | | 2010 | Encounter | MED CTR LABORATORY | MD [address] | | | | | [address] [place] | [address] [place] | | | | | [place], [place] | [place] [address] | | | | | [address] | [phone] | | | | | [phone] | | | +--------+ + + + [...] [place] | | | | | | [address] | | | | | | | | +--------+---------+ + + + | 11/24/ | Office | Cardiology | [place], | | | 2019 | Visit | | SINDHU Erickson [address] | | | | | | [place], | | | | | | [place] [address] | | | | | | [phone] | | | | | | | [...] + | [address] | [address] | [place], [place] | [phone] | | [facility] | | [address] | | | - LABORATORY | | | | + + + + + | [address] | [address] | [place], [place] | | | [facility] | | [address] | | | - LABORATORY | | [...] - 1.030 | [facility] | | | [place] | | | [facility] | | [...] ST. | [address] | [place], [place] | [phone] | | [facility] | | [address] | | | - LABORATORY | | | | + + + + + | [address] | [address] | [place] | | | [facility] | | [address] | | | - LABORATORY | | | | + + + + + documented in this encounter Visit Diagnoses Not on filedocumented in this encounter"
--- OUTSIDE RECORDS SUMMARY | ~2019-02-28 | XMS | Encounter Summary ---
Demographics + + + | Address | [address] | | | [place] [address] | + + + | Home Phone [...] Team Providers + +------+ + | Care Planning Assistant Name | Role | Phone | [...] Destinee ChirinosdrewChris | | | | | [phone] | [place] [address] | | +--------+ + + + + [...] [place] | | | | | | [address] | | | | | | | | +--------+---------+ + + + | 11/24/ | Office | Cardiology | [place], | | | 2019 | Visit | | SINDHU Erickson [address] | | | | | | [place], | | | | | | [place] [address] | | | | | | [phone] | | | | | | | [...]
--- OUTSIDE RECORDS SUMMARY | ~2019-02-28 | XMS | Encounter Summary ---
Demographics + + + | Address | [address] | | | [place] [address] | + + + | Home Phone [...] Team Providers + +------+ + | Care Manufacturing Advisor Name | Role | Phone | [...] | | | | | [place] | [facility] | | | | | [address] | [place] [address] | | | | | [phone] | [phone] | | | | | | | [...] [place] | | | | | | [place] | | | | | | [address] | | | | | | | | +--------+---------+ + + + | 11/24/ | Office | Cardiology | [place], | | | 2019 | Visit | | SINDHU Erickson [address] | | | | | | [place], | | | | | | [place] [address] | | | | | | [phone] | | | | | | | | +--------+---------+ + + + documented as of this encounter Visit Diagnoses Not on filedocumented in this encounter"
--- OUTSIDE RECORDS SUMMARY | ~2019-02-28 | XMS | Encounter Summary ---
Demographics + + + | Address | [address] | | | [place] [address] | + + + | Home Phone [...] Team Providers + +------+ + | Care Engine Lathe Set Up Operator Tool Name | Role | Phone [...] | with brief | [address] | [place] | | | | n | loss of | [address] | [place], | | | | | consciousnes | [place], | [place] [address] | | | | | s | [place] [address] | Phone: | | | | | Post-concuss | Phone: | [phone] | | | | | ion vertigo | [phone] | Fax: | | | | | [id number] | Fax: | [phone] | | | | | (ICD-10-CM) | [phone] | | | | | | - [...] + + | 05/07/ | Office | [facility] | Aaron Rodriguez, | Dizziness (Primary | | 2017 | Visit | MED CTR THERAPY PT | MD [address] | Dx); Impaired | | | | OP [address] | [place] | mobility and | | | | [place] | [id number] | activities of daily | | | | [address] | | living; Concussion | | | | [phone] | Lakeshia Cleary, PT | with brief (less | | | | | [address] | than one hour) loss | | | | | [place] | of consciousness; | | | | | [address] | Intractable acute | | | | [...] might be different from t he original. [facility] CTR THERAPY PT OP [address] [place] [address] Physical Therapy Daily Treatment Note Date: 05/07/2016 [...] Rehab Precautions Office Visit from 05/01/2016 in [facility] CTR THERAPY PT OP Rehab [...] [place] | | | | | | [address] | | | | | | | | +--------+---------+ + + + | 11/24/ | Office | Cardiology | [place], | | | 2020 | Visit | | SINDHU Erickson [address] | | | | | | [place], | | | | | | [place] [address] | | | | | | [phone] | | | | | | | [...]
--- OUTSIDE RECORDS SUMMARY | ~2019-02-28 | XMS | Encounter Summary ---
Demographics + + + | Address | [address] | | | [place] [address] | + + + | Home Phone [...] Team Providers + +------+ + | Care Lacquer Sprayer Name | Role | Phone | + [...] + + | 07/14/ | Office | [facility] | Elda Miranda | Asthma exacerbation | | 2012 | Visit | CONVENIENT CARE [address] | MD [address] | (Primary Dx) | | | | [facility] | [place] | | | | | [place] | [place] [address] | | | | | [address] | [phone] | | | | | [phone] | | | +--------+---------+ + + + [...] dyspnea. Lungs clear. Assessment: 1. Asthma exacerbation [place] INHAL RX, AIRWAY OBST/DX SPUTUM INDUCT, albuterol [...] [place] | | | | | | [address] | | | | | | | | +--------+---------+ + + + | 11/24/ | Office | Cardiology | [place], | | | 2019 | Visit | | SINDHU Erickson [address] | | | | | | [place], | | | | | | [place] [address] | | | | | | [phone] | | | | | | | [...]
--- OUTSIDE RECORDS SUMMARY | ~2019-02-28 | XMS | Encounter Summary ---
Demographics + + + | Address | [address] | | | [place] [address] | + + + | Home Phone [...] Team Providers + +------+ + | Care Jira Developer Name | Role | Phone | + +------+ + | Yong Cherry DO | PCP | | + +------+ + Reason for Visit + + + | Reason | Comments | + + + | Nausea | | + + + | Dizziness | | + + + | Abdominal Cramping | | + + + Encounter Details +--------+ + + + + | Date | Type | Department | Care Team | Description | +--------+ + + + + | 09/09/ | Emergency | [facility] | Guru Cárdenas, | Epigastric pain | | 2017 | | [facility] | MD [address] | (Primary Dx) | | | | CENTER [address] | [facility] [place] | | | | | [place] | [place] [address] | | | | | [address] | [phone] | | | | | [phone] | | | +--------+ + + + [...] + + + | Blood Pressure | 111/56 | 09/09/2016 5:12 PM | | | | | PDT | | + + + + + | Pulse | 59 | 09/09/2016 6:17 PM | | | | | PDT | | + + + + + | Temperature | 37.3 C (99.1 F) | 09/09/2016 2:16 PM | | | | | PDT | | + + + + + | Respiratory Rate | 20 | 09/09/2016 2:16 PM | | | | | PDT | | + + + + + | Oxygen Saturation | 97% | 09/09/2016 6:17 PM | | | | | PDT | | + + + + + | Inhaled Oxygen | - | - | | | Concentration | | | | + + + + + | Weight | 76.2 kg (168 lb) | 09/09/2016 2:16 PM | | | | | PDT | | + + + + + | Height | - | - | | + + + + + | Body Mass Index | 30.73 | 05/16/2016 8:46 AM | | | [...] Discharge Instructions Instructions Guru Cárdenas MD - 09/09/2016Take the medicine as prescribed Follow-up with your primary care provider Stay well-hydrated Stay out of the heat AttachmentsThe following attachments cannot be sent through Care Everywhere.GASTRITIS (ADUL T) (CHADIAN)documented in this encounter Medications at Time of [...] | | | | order to [facility]. | | | | | [...] | | | | | | | [facility]. | | | | | [...] | 0 | 10/13/19 | | | Uhhnhhkufj-LKSR-Svbr | mouth as needed. | | | 16 | 7 | | -Cod [id number] MG | | | | | | [...] [place] | | | | | | [id number] | | | | | | | | +--------+---------+ + + + | 11/24/ | Office | Cardiology | [place], | | | 2019 | Visit | | SINDHU Erickson [address] | | | | | [place], | | | | | | [place] [address] | | | | | | [phone] | | | | | | | | +--------+---------+ + + + + +------+--------+ + + | Name | Type | Priori | Associated Diagnoses | Date/Time | | | | ty | | | + +------+--------+ + + | ED INFORMATION | BALWINDER | Routin | | 09/09/2016 2:01 PM | | EXCHANGE | | e | | PDT | + +------+--------+ + + documented as of this encounter Procedures + +--------+ + + + | Procedure Name | Priori | Date/Time | Associated Diagnosis | Comments | | | ty | | | | + +--------+ + + + | CT ABDOMEN PELVIS W | STAT | 09/09/2016 | | Results for this | | CONTRAST | | 5:25 PM | | procedure are in the | | | | PDT | | results section. | + +--------+ + + + | URINALYSIS WITH | STAT | 09/09/2016 | | Results for this | | MICROSCOPIC WITH | | 2:37 PM | | procedure are in the | | CULTURE IF INDICATED | | PDT | | results section. | + +--------+ + + + | EXTRA GREEN TOP TUBE | STAT | 09/09/2016 | | Results for this | | | | 2:37 PM | | procedure are in the | | | | PDT | | results section. | + +--------+ + + + | LIPASE | STAT | 09/09/2016 | | Results for this | | | | 2:37 PM | | procedure are in the | | | | PDT | | results section. | + +--------+ + + + | COMPREHENSIVE | STAT | 09/09/2016 | | Results for this | | METABOLIC PANEL | | 2:37 PM | | procedure are in the | | | | PDT | | results section. | + +--------+ + + + | RAINBOW BLOOD PANEL | STAT | 09/09/2016 | | Results for this | | | | 2:36 PM | | procedure are in the | | | | PDT | | results section. | + +--------+ + + + | EXTRA MAN TOP | STAT | 09/09/2016 | | Results for this | | TUBE | | 2:36 PM | | procedure are in the | | | | PDT | | results section. | + +--------+ + + + | EXTRA GREEN TOP TUBE | STAT | 09/09/2016 | | Results for this | | | | 2:36 PM | | procedure are in the | | | | PDT | | results section. | + +--------+ + + + | EXTRA GOLD TOP TUBE | STAT | 09/09/2016 | | Results for this | | | | 2:36 PM | | procedure are in the | | | | PDT | | results section. | + +--------+ + + + | EXTRA BLUE TOP TUBE | STAT | 09/09/2016 | | Results for this | | | | 2:36 PM | | procedure are in the | | | | PDT | | results section. | + +--------+ + + + | CBC WITH | STAT | 09/09/2016 | | Results for this | | DIFFERENTIAL | | 2:36 PM | | procedure are in the | | | | PDT | | results section. | + +--------+ + + + | ED INFORMATION | Routin | 09/09/2016 | | | | EXCHANGE | e | 2:01 PM | | | | | | PDT | | | + +--------+ + + + +---+--------+ | | | | | Proced | | | ure | | | Note - | | | Vic, | | | Lab In | | | | | | Hlseve | | | n - | | | | | | 2016 | | | 2:02 | | | PM PDT | | [...] ON? | | | | | | 7 | | | 13:57? | | | HODGEN | | | , | | | GRETCH | | | EN | | | W?MRN: | | | | | | [id number] | | | [id number] | | | his | | | [...] | | | ba8e | | | ED | | | [...] | | | Mansoor | | | 17, | | | 2017 | | | Provid | | | ence | | | [facility] | | | [facility] | [place] | | | [place] | | | Emerge | | | ncy | | | Emerge | | | ncy | | | abd | | | crampi | | | ng/N | | | May 3, | | | 2017 | | | [place] | | | Genera | | | l H. | | | [place] | | | [place] | | | Emerge | | | ncy | | | Emerge | | | ncy | | | Chief | | | Compla | | | int: | | | HEADAC | | | HE | | | E.D. | | | [...] | | 4 0 | | | [place] | [place] | | | Genera | | | l | | | Hospit | | | al 1 0 | | | Total | | [...] | | | . | | | [place] | | | gton | | | PDMP | | | Report | | | [...] MED | | | | | | 2017-0 | | | 7-03 | | | TRAMAD | | | OL HCL | | | 50 MG | | | | | | TABLET | | | 120 | | | YONG | | | | | | OLSWAN | | | HEATHER 0 | | | | | | 2017-0 | | | 6-04 | | | TRAMAD | | | OL HCL | | | 50 MG | | | | | | TABLET | | | 120 | | | YONG | | | | | | OLSWAN | | | HEATHER 0 | | | | | | 2017-0 | | | 5-03 | | | TRAMAD | | | OL HCL | | | 50 MG | | | | | | TABLET | | | 120 | | | YONG | | | | | | OLSWAN | | | HEATHER 0 | | | | | | 2017-0 | | | 4-05 | | | TRAMAD | | | OL HCL | | | 50 MG | | | | | | TABLET | | | 120 | | | YONG | | | | | | OLSWAN | | | HEATHER 0 | | | | | | 2017-0 | | | 3-04 | | | TRAMAD | | | OL HCL | | | 50 MG | | | | | | TABLET | | | 120 | | | YONG | | | | | | OLSWAN | | | HEATHER 0 | | | | | | 2017-0 | | | 2-03 | | | TRAMAD | | | OL HCL | | | 50 MG | | | | | | TABLET | | | 120 | | | YONG | | | | | | OLSWAN | | | HEATHER 0 | | | Rx | | | Summar | | | y (12 | | | Mo.)Me | | | tric | | | Count | | | CS | | | II-V | | | Rx 6 | | | CS-II | | | Rx 2 | | | Quanti | | | ty | | | Dispen | | | sed | | | 1,335 | | | Unique | | | | | | Prescr | | | ibers | | | 4 | | | Unique | | | | | | Pharma | | | cies 1 | | | | | | Benzos | | | 0 | | | Opioid | | | s 6 | | | Long | | | [...] | | | t | | | Timoth | | | y A | | | Aditya | | | on | | | Primar | | | y Care | | | | | | Curren | | | [...] encounter Results CT Abdomen Pelvis w Contrast (09/09/2016 5:25 PM PDT) + + | Specimen | + + | | + + + + + | Narrative | Performed At | + + + | CT ABDOMEN PELVIS W CONTRAST 09/09/2016 5:21 PM HISTORY: | [facility] | | abdominal pain leukocytosis N/V. COMPARISON: Multiple priors was | | | recently dated 04/12/2015 PROTOCOL: Axial images of the abdomen | | | and pelvis were obtained after administration of 85 mL Omnipaque 350. | | | Coronal and sagittal reformations were acquired. FINDINGS: | | | LUNG BASE: Interval development of a questionable nodule versus area | | | of atelectasis measuring 11 mm in maximal dimension in the posterior | | | right costophrenic sulcus. Mild bibasilar subsegmental atelectasis is | | | present. There is a trace pericardial effusion. Heart is normal in | | | size. HEPATOBILIARY: The liver demonstrates normal parenchyma. The | | | gallbladder is normal. No evidence of intrahepatic or extrahepatic | | | biliary ductal dilatation. SPLEEN: Normal parenchyma. No evidence of | | | mass or splenomegaly. PANCREASE: Normal parenchyma. No evidence of | | | pancreatic ductal dilation. ADRENAL GLANDS: No evidence of nodule, | | | mass or suspicious thickening. KIDNEYS: Bilateral kidneys are without | | | evidence of suspicious mass, calculus, or hydronephrosis. Small | | | subcentimeter hypodensity is seen within the midpole of the left | | | kidney, too small to further characterize, unchanged since prior | | | examination. No evidence of hydroureter. Multiple calcifications are | | | seen within the right gonadal vein distribution and in the pelvis, | | | limiting evaluation for ureteral calculi. BOWEL: Post surgical | | | changes are seen related to prior gastroesophageal surgery. Stomach | | | is otherwise normal in appearance. Normal appearance of the appendix. | | | No evidence of suspicious colonic wall thickening or inflammation. No | | | evidence of dilatation to suggest obstruction. Extensive sigmoid | | | colonic diverticulosis and scattered diverticulosis throughout the | | | remainder of the colon. VASCULATURE: Aorta is nonaneurysmal and | | | without evidence of dissection. Scattered atherosclerotic | | | calcifications are seen involving the abdominal aorta. There is no | | | significant abnormality in the portal veins, mesenteric veins, or | | | systemic veins. LYMPH NODES: No enlarged lymph nodes are visualized | | | within the omentum or retroperitoneum. PERITONEUM: There is no | | | evidence for free fluid or free air. BLADDER: Unremarkable. | | | REPRODUCTIVE: Not visualized. SOFT TISSUES: Body wall soft tissue | | | structures are normal. BONES: There are no acute osseous | | | abnormalities. IMPRESSION - 1. No acute intra-abdominal | | | abnormality identified. 2. Question 11 mm nodule versus area of | | | atelectasis in the posterior right costophrenic sulcus. Recommend | | | repeat CT of the chest in 6 months to confirm resolution. 3. | | | Diverticulosis. Dictated and Signed by: Pb | | | MD Kal Electronically signed: 09/09/2016 5:44 PM | | + + + + + | Procedure Note | + + | Vic, Rad Results In - 09/09/2016 5:[address] ABDOMEN PELVIS W CONTRAST 09/09/2016 | | 5:21 PMHISTORY: abdominal painleukocytosisN/V.COMPARISON: Multiple priors was recently | | dated 04/12/2015PROTOCOL: Axial images of the abdomen and pelvis were obtained | | afteradministration of 85 mL Omnipaque 350. Coronal and sagittal reformations | | wereacquired.FINDINGS:LUNG BASE: Interval development of a questionable nodule versus | | area ofatelectasis measuring 11 mm in maximal dimension in the posterior | | rightcostophrenic sulcus. Mild bibasilar subsegmental atelectasis is present. Thereis a | | trace pericardial effusion. Heart is normal in size. HEPATOBILIARY: The liver | | demonstrates normal parenchyma. The gallbladder isnormal. No evidence of intrahepatic | | or extrahepatic biliary ductal dilatation.SPLEEN: Normal parenchyma. No evidence of mass | | or splenomegaly.PANCREASE: Normal parenchyma. No evidence of pancreatic ductal | | dilation.ADRENAL GLANDS: No evidence of nodule, mass or suspicious thickening.KIDNEYS: | | Bilateral kidneys are without evidence of suspicious mass, calculus, orhydronephrosis. | | Small subcentimeter hypodensity is seen within the midpole ofthe left kidney, too small | | to further characterize, unchanged since priorexamination. No evidence of hydroureter. | | Multiple calcifications are seen withinthe right gonadal vein distribution and in the | | pelvis, limiting evaluation forureteral calculi.BOWEL: Post surgical changes are seen | | related to prior gastroesophageal surgery.Stomach is otherwise normal in appearance. | | Normal appearance of the appendix. Noevidence of suspicious colonic wall thickening or | | inflammation. No evidence ofdilatation to suggest obstruction. Extensive sigmoid colonic | | diverticulosis andscattered diverticulosis throughout the remainder of the | | colon.VASCULATURE: Aorta is nonaneurysmal and without evidence of dissection. Scattered | | atherosclerotic calcifications are seen involving the abdominal aorta. There is no | | significant abnormality in the portal veins, mesenteric veins, orsystemic veins.LYMPH | | NODES: No enlarged lymph nodes are visualized within the omentum orretroperitoneum. | | PERITONEUM: There is no evidence for free fluid or free air.BLADDER: | | Unremarkable.REPRODUCTIVE: Not visualized. SOFT TISSUES: Body wall soft tissue | | structures are normal. BONES: There are no acute osseous abnormalities.IMPRESSION -1. No | | acute intra-abdominal abnormality identified.2. Question 11 mm nodule versus area of | | atelectasis in the posterior rightcostophrenic sulcus. Recommend repeat CT of the chest | | in 6 months to confirmresolution.3. Diverticulosis.Dictated and Signed by: Pb | | MD Kal Electronically signed: 09/09/2016 5:44 PM | |dilatation to suggest obstruction. Extensive sigmoid colonic diverticulosis and | |scattered diverticulosis throughout the remainder of the colon. | |VASCULATURE: Aorta is nonaneurysmal and without evidence of dissection. | |Scattered atherosclerotic calcifications are seen involving the abdominal aorta. | | There is no significant abnormality in the portal veins, mesenteric veins, or | |systemic veins. | |LYMPH NODES: No enlarged lymph nodes are visualized within the omentum or | |retroperitoneum. | |PERITONEUM: There is no evidence for free fluid or free air. | |BLADDER: Unremarkable. | |REPRODUCTIVE: Not visualized. | |SOFT TISSUES: Body wall soft tissue structures are normal. | |BONES: There are no acute osseous abnormalities. | | | |IMPRESSION - | |1. No acute intra-abdominal abnormality identified. | |2. Question 11 mm nodule versus area of atelectasis in the posterior right | |costophrenic sulcus. Recommend repeat CT of the chest in 6 months to confirm | |resolution. | |3. Diverticulosis. | | | | | | | | | | | | | | | |Dictated and Signed by: Pb Bowden MD | | Electronically signed: 09/09/2016 5:44 PM | + + + +---------+ + + | Performing | Address | City/State/Zipcode | Phone Number | | Organization | | | | + +---------+ + + | [facility] | | | | + +---------+ + + Lipase (09/09/2016 2:37 PM PDT) + +-------+ + + + | Component | Value | Ref Range | Performed | Pathologist | | | | | At | Signature | + +-------+ + + + | Lipase | 16 | 0 - 60 U/L | [facility] | [address] | [place] | [phone] | | [facility] | | [address] | | | - LABORATORY | | | | + + + + + Comprehensive Metabolic Panel (09/09/2016 2:37 PM PDT) + + + + + [...] + + + + | CO2 | 23 (L) | 24 - 31 mmol/L | [facility] | | | | | [...] 100 | 70 - 109 mg/dL | [facility] | | | | | | [facility] | | | | | | MEDICAL | | | | | | CENTER - | | | | | | LABORATORY | | + + + + + + | BUN | 10 | 7 - 18 mg/dL | [facility] | | | | | | [facility] | | | | | | MEDICAL | | | | | | CENTER - | | | | | | LABORATORY | | + + + + + + | Creatinine | 0.72Comment: This is an | 0.60 - 1.30 | [facility] | | | | appended report. These | mg/dL | [facility] | | [...] mL/min/1.73m2 | [facility] | | | MOZAMBICAN | RATE,ESTIMATED | | MEDICAL | | | | mL/min/1.66q0Ioom than | | CENTER - | | [...] 1.21. | | | | | | This is an appended | | | | | | report. These results | | | | | | have been appended to a | | | | | | previously preliminary | | | | | | verified report. | | | | + + + + + + | Calcium | 9.1 | 8.3 - 10.5 | [facility] | | | | | mg/dL | [facility] | | | | | | MEDICAL | | | | | | CENTER - | | | | | | LABORATORY | | + + + + + + | Albumin | 3.7 | 3.2 - 5.0 g/dL | [facility] | | | | | | [facility] | | | | | | MEDICAL | | | | | | CENTER - | | | | | | LABORATORY | | + + + + + + | Bilirubin | 0.7Comment: This is an | 0.1 - 1.5 [...] | | Protein | | | [facility] | | [...] + + + + | Alkaline | 65Comment: This is an | 40 - 110 [...] + + + + | Albumin/Jewell | 1.5 | 0.8 - 2.0 | [facility] | | | bulin Ratio | | | [facility] | | | | | | MEDICAL | | | | | | CENTER - | | | | | | LABORATORY | | + + + + + + | BUN/Creatin | 13.9Comment: This is an | | [facility] | | | ine Ratio | appended report. These | | [facility] | | | | results have been [...] [address] | [place] | [phone] | | [facility] | | [address] | | | - LABORATORY | | | | + + + + + Extra Green Top Tube (09/09/2016 2:37 PM PDT) + +-------+ + + + [...] + | [facility] | [address] | [place] | [phone] | | [facility] | | [address] | | | - LABORATORY | | | | + + + + + Urinalysis with Microscopic with Culture if Indicated (09/09/2016 2:37 PM PDT) + + + + + [...] + + + + | Specific | 1.006 | 1.001 - 1.030 | [facility] | | | Addison | | | [facility] | | [...] | [facility] | | | COMMENT | IndicatedComment: This | | [facility] | | | | is a corrected result. | | MEDICAL | | | | Previous result was | | CENTER - | | | | Urine Culture Set Up on | | LABORATORY | | | | 09/09/2016 at 1459 PDT | | | | + + + [...] [address] | [place] | [phone] | | [facility] | | [address] | | | - LABORATORY | | | | + + + + + CBC with Differential (09/09/2016 2:36 PM PDT) + + + + + + | Component | Value | Ref Range | Performed | Pathologist | | | | | At | Signature | + + + + + + | WBC | 14.7 (H) | 4.0 - 11.0 K/uL | [facility] | | | | | | [facility] | | | | | | MEDICAL | | | | | | CENTER - | | | | | | LABORATORY | | + + + + + + | RBC | 5.06 | 3.70 - 5.20 | [facility] | [...] + + + + | Hematocrit | 41.8 | 34.0 - 47.0 % | [facility] | | | | | | [facility] | | | | | | MEDICAL | | | | | | CENTER - | | | | | | LABORATORY | | + + + + + + | MCV | 82.6 (L) | 83.0 - 101.0 fL | [...] + + + + | Platelet | 436 | 140 - 440 K/uL | [facility] | | | Count | | | [facility] | | | | | | MEDICAL | | | | | | CENTER - | | | | | | LABORATORY | | + + + + + + | MPV | 7.7 | fL | [facility] | | | | | | [facility] | | | | | | MEDICAL | | | | | | CENTER - | | | | | | LABORATORY | | + + + + + + | % | 70.5 | 45.0 - 82.0 % | [facility] | | | Neutrophils | | | [facility] | | | | | | MEDICAL | | | | | | CENTER - | | | | | | LABORATORY | | + + + + + + | % | 24.2 | 20.0 - 45.0 % | [facility] | | | Lymphocytes | | | [facility] | | | | | | MEDICAL | | | | | | CENTER - | | | | | | LABORATORY | | + + + + + + | % Monocytes | 4.6 | 4.0 - 12.0 % | [facility] [...] + + + + | Absolute | 10.40 (H) | 1.80 - 8.50 | [facility] | | | Neutrophils | | K/uL | [facility] | | | | | | MEDICAL | | | | | | CENTER - | | | | | | LABORATORY | | + + + + + + | Absolute | 3.60 (H) | 0.60 - 3.20 | [facility] | | | Lymphocytes | | K/uL | [facility] | | | | | | MEDICAL | | | | | | CENTER - | | | | | | LABORATORY | | + + + + + + | Absolute | 0.70 | 0.00 - 1.00 | [facility] | [address] | [place] | [phone] | | [facility] | | [address] | | | - LABORATORY | | | | + + + + + Extra Lavender Top Tube (09/09/2016 2:36 PM PDT) + +-------+ + + + [...] ST. | [address] | [place], [place] | [phone] | | [facility] | | [address] | | | - LABORATORY | | | | + + + + + Extra Green Top Tube (09/09/2016 2:36 PM PDT) + +-------+ + + + [...] [address] | [place] | [phone] | | [facility] | | [address] | | | - LABORATORY | | | | + + + + + Extra Gold Top Tube (09/09/2016 2:36 PM PDT) + +-------+ + + + [...] [address] | [place] | [phone] | | [facility] | | [address] | | | - LABORATORY | | | | + + + + + Extra Blue Top Tube (09/09/2016 2:36 PM PDT) + +-------+ + + + [...] ST. | [address] | [place], [place] | [phone] | | [facility] | | [address] | | | - LABORATORY | | | | + + + + + documented in this encounter Visit Diagnoses + + | Diagnosis | + + | Epigastric pain - Primary Abdominal pain, epigastric | + + documented in this encounter Administered Medications + +--------+ +--------+------+------+ | Medication Order | MAR | Action | Dose | Rate | Site | | | Action | Date | | | | + +--------+ +--------+------+------+ | aluminum & magnesium | Given | 09/10/19 | 30 mLs | | | | hydroxide-simethicone (MAALOX | | 17 3:22 | | | | | PLUS REGULAR STRENGTH) 200-200-20 | | PM PDT | | | | | mg/5 mL suspension 30 mL 30 mL, | | | | | | | Oral, ONCE, 09/09/16 at 1515, | | | | | | | For 1 dose, Mix lidocaine and | | | | | | | Maalox. Ashok garcia., | | | | | | + +--------+ +--------+------+------+ +---+---+ | | | +---+---+ + +-------+ +--------+---+---+ | iohexol (OMNIPAQUE 350) 350 | Given | 09/10/19 | 85 mLs | | | | mg/mL injection 85 mL 85 mL, | | 17 5:23 | | | | | Intravenous, ONCE PRN, Other, for | | PM PDT | | | | | CT Contrast Study, Starting Mon | | | | | | | 09/09/16 at 1722, For 1 dose, | | | | | | | Radiology | | | | | | + +-------+ +--------+---+---+ +---+---+ | | | +---+---+ + +-------+ +--------+---+---+ | lidocaine (XYLOCAINE) 2% | Given | 09/10/19 | 10 mLs | | | | viscous solution 10 mL 10 mL, | | 17 3:23 | | | | | Oral, ONCE, 09/09/16 at 1515, | | PM PDT | | | | | For 1 dose, Mix lidocaine and | | | | | | | MAALOX. Ashok garcia., | | | | | | + +-------+ +--------+---+---+ +---+---+ | | | +---+---+ + +-------+ +------+---+---+ | ondansetron (ZOFRAN) injection | Given | 07/17/20 | 4 mg | | | | 4 mg 4 mg, Intravenous, ONCE, | | 17 2:44 | | | | | 09/09/16 at 1440, For 1 dose | | PM PDT | | | | + +-------+ +------+---+---+ +---+---+ | | | +---+---+ + +-------+ +-------+---+---+ | pantoprazole (PROTONIX) DR | Given | 09/10/19 | 40 mg | | | | tablet 40 mg 40 mg, Oral, ONCE, | | 17 3:22 | | | | | 09/09/16 at 1515, For 1 dose, | | PM PDT | | | | | Do not cut or crush., | | | | | | + +-------+ +-------+---+---+ +---+---+ | | | +---+---+ documented in this encounter"
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
--- OUTSIDE RECORDS SUMMARY | ~2019-02-28 | XMS | Encounter Summary ---
Demographics + + + | Address | [address] | | | [place] [address] | + + + | Home Phone [...] Team Providers + +------+ + | Care Photoflash Powder Mixer Name | Role | Phone | [...] | | | | [facility] | [address] | [address] | | | | | EXERCISE | [place], | [place] | | | | | | [place] [address] | [place], [place] | | | | | | Phone: | [address] | | | | | | [phone] | Phone: | | | | | | Fax: | [phone] | | | | | | [phone] | Fax: | | | | | | | [phone] | +--------+--------+ + + + + Encounter Details +--------+---------+ + + + | Date | Type | Department | Care Team | Description | +--------+---------+ + + + | 07/09/ | Office | [facility] | Jared Mcdonough, | Chronic obstructive | | 2017 | Visit | MED CTR CARDIAC | MD Migdalia King | pulmonary disease, | | | | [facility] [address] [place], | unspecified COPD | | | | [address] [place] | [place] [address] | type (HCC) (Primary | | | | [place] [address] | [phone] | Dx); Pulmonary | | | | [phone] | | emphysema, | | | | [...] [place] | | | | | | [address] | | | | | | | | +--------+---------+ + + + | 11/24/ | Office | Cardiology | [place], | | | 2019 | Visit | | SINDHU Erickson [address] | | | | | | [place], | | | | | | [place] [address] | | | | | | [phone] | | | | | | | | +--------+---------+ + + + documented as of this encounter Visit Diagnoses + + | Diagnosis | + + | Chronic obstructive pulmonary disease, unspecified COPD type (HCC) - Primary | + + | Pulmonary emphysema, unspecified emphysema type (HCC) | + + documented in this encounter"
--- OUTSIDE RECORDS SUMMARY | ~2019-02-28 | XMS | Encounter Summary ---
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[place], | | | | | tumor | updated | [place] | | | | | Procedures | address | [address] | | | | | CT Head w wo | | Phone: | | | | | Contrast | | [phone] | | | | | | | Fax: | | | | | | | [phone] | +--------+--------+ + + + + Encounter Details +--------+ + + + + | Date | Type | Department | Care Team | Description | +--------+ + + + + | 12/17/ | Hospital | [facility] | Shashi Segovia | Headache; | | 2013 | Encounter | MED CTR CT [address] | MD Miryam Need updated | Pituitary tumor | | | | [place], | address | | | | | [place] [address] | | | | | | [phone] | | | +--------+ + + + [...] [place] | | | | | | [address] | | | | | | | | +--------+---------+ + + + | 11/24/ | Office | Cardiology | [place], | | | 2019 | Visit | | SINDHU Erickson [address] | | | | | | [place], | | | | | | [place] [address] | | | | | | [phone] | | | | | | | [...] + | MISCELLANEOUS LAB | | | [phone] | + +---------+ + + | MISCELANIOUS LAB | | | [phone] | + +---------+ + + documented in [...]
--- OUTSIDE RECORDS SUMMARY | ~2019-02-28 | XMS | Encounter Summary ---
Demographics + + + | Address | [address] | | | [place] [address] | + + + | Home Phone [...] Team Providers + +------+ + | Care Programmer Analyst Name | Role | Phone [...] on | MED CTR THERAPY PT | HYDRO STATION OPERATOR [address] | | | | | OP [address] | [place], [place] | | | | | [place], [place] | [address] | | | | | [address] | [phone] | | | | | [phone] | | | +--------+ + + + [...] of this encounter Progress Notes Janey Low, HYDRO STATION OPERATOR - 05/25/2013 9:34 AM [facility] OP [address] [place] [address] Cancellation/No Show Date: 05/25/2013 Patient Information Patient [...] [place] | | | | | | [id number] | | | | | | | | +--------+---------+ + + + | 11/24/ | Office | Cardiology | [place] | | | 2019 | Visit | | SINDHU Erickson [address] | | | | | | [place] | | | | | | [place] [address] | | | | | | [phone] | | | | | | | | +--------+---------+ + + + documented as of this encounter Visit Diagnoses Not on filedocumented in this encounter"
--- OUTSIDE RECORDS SUMMARY | ~2019-02-28 | XMS | Encounter Summary ---
Demographics + + + | Address | [address] | | | [place] [address] | + + + | Home Phone [...] Providers + +------+ + | Care Sales Expert Home Theater Name | Role | Phone | + [...] + + | 09/17/ | Office | [facility] | Ashlee Allison, | Palpitations | | 2018 | Visit | CARDIOLOGY [address] | DELIVERY ROOM CLERK [address] | (Primary Dx); | | | | [place], | [facility] [place] | Paroxysmal atrial | | | | [place] [address] | [address] | tachycardia (HCC); | | | | [phone] | | Hypotension due to | | [...] fluids and told she had sinus tachycar adurey. She was asked to take an extra propranolol 10 mg that day as long as her blood pressure was not too low. She was again seen in emergency department at [facility] on 08/30/17 for tachycardia, ECG showing sinus tachycardia with rate of 110 beats per minute, no acute f indings, her potassium was found to be low at 3.1, and blood pressure was high 144/111 mmHg, she was given one replacement dose of potassium, and had 48 hour Holter placed. She was aga in seen in emergency department at [facility] on 09/13/17 for tachyca rdia, with [...] takes this da rigoberto Respiratory Therapy Supplies [facility] Please provide patient with necessary CPAP supplies ( she did not specify, okay to send order as appropriate) Diagnosis Code(s)327.23 . Length of Need 99 months. Please send order to [facility]. 1 each 0 Respiratory Therapy Supplies [...] adversely affected Probable Sinus tachycardia with short [place] though P waves are difficult to identify due to p oor quality of tracing PAC's Possible Inferior infarct , age undetermined Nonspecific ST and T wave abnormality :cannot exclude ischemia Abnormal ECG When compared with ECG of 30-AUG-2017 11:40, premature supraventricular complexes are no longer present [place] interval has decreased Possible Inferior infarct is now present Confirmed by RUSSELL PAUL, RAFA ([id number]) on 09/14/2017 9:47:53 AM LAB RESULTS reviewed during visit today primarily from [facility]: LIPID Lab Results [...] BNP 22 08/14/2017 I reviewed records from [facility] for emergency department visit o n 08/14/17, 08/30/17, and 09/13/17 which is summarized in the HPI. IMAGING- I reviewed reports from [facility]: Xr Chest Ap Portable Result Date: [...] and v entricular function done at the [facility]. LVEF [...] She was seen at the ED [facility] 3 weeks ago and again 1 week [...] this chart may have been created with Mofang voice recognition software. Occasi onal wrong-word or [...] [place] | | | | | | [address] | | | | | | | | +--------+---------+ + + + | 11/24/ | Office | Cardiology | [place], | | | 2019 | Visit | | SINDHU Erickson [address] | | | | | | [place], | | | | | | [place] [address] | | | | | | [phone] | | | | | | | [...] [address] | [place] | [phone] | | [facility] | | [address] | | | - LABORATORY | | [...] 0.79 | 0.60 - 1.30 | [facility] | | | | | mg/dL | [facility] | | | | | | MEDICAL | | | | | | CENTER - | | | | | | LABORATORY | | + + + + + + | eGFR if not | >60Comment: GLOMERULAR | >=60 | [facility] | | | | FILTRATION | mL/min/1.73m2 | [facility] | | | [facility] | RATE,ESTIMATED | | MEDICAL | | | | mL/min/1.60z3Zsdj than | | CENTER - | | [...] [address] | [place] | [phone] | | [facility] | | [address] | | | - LABORATORY | | [...]
--- OUTSIDE RECORDS SUMMARY | ~2019-02-28 | XMS | Encounter Summary ---
Demographics + + + | Address | [address] | | | [place] [address] | + + + | Home Phone [...] Team Providers + +------+ + | Care Spine Nurse Name | Role | Phone | [...] [address] | | | | | [place], | [place], | | | | | [place] [address] | [place] [address] | | | | | [phone] | [phone] | | | | | | | [...] | | | | | | [place] [address] | | | | | | [phone] | | | | | | | | +--------+---------+ + + + documented as of this encounter Visit Diagnoses Not on filedocumented in this encounter"
--- OUTSIDE RECORDS SUMMARY | ~2019-02-28 | XMS | Encounter Summary ---
Demographics + + + | Address | [address] | | | [place] [address] | + + + | Home Phone [...] Providers + +------+ + | Care Director Franchise Sales Name | Role | Phone | + [...] + + | 02/02/ | [facility] | [facility] | Jared Mcdonough, | Paroxysmal atrial | | 2015 | Visit | CARDIOLOGY [address] | MD [address] [place] | tachycardia (HCC) | | | | [place], | [place], | (Primary Dx); | | | | [place] [address] | [place] [address] | Syncope, unspecified | | | | [phone] | [phone] | syncope type; | | | | | | Palpitations | | | | | Ashlee Allison ARNP | | | | | | [address] | | | | | | [place] | | | | | | [phone] | | | | | | | [...] She takes this daily Respiratory Therapy Supplies [facility] Please provide patient with necessary CPAP supplies ( she did not specify, okay to send order as appropriate) Diagnosis Code(s)327.23 . Length of Need 99 months. Please send order to [facility]. 1 each 0 Respiratory Therapy Supplies [facility] Change CPAP back to 11-14 cm H2O. All necessary suppl ies. No oxygen bleed in. Diagnosis Code(s)327.23. Length of Need: Lifetime. Please send orde r to [facility]. This is not [...] She was seen at the ED of [facility] 3 weeks ago and again 1 [...] She is in a class II of [employer] functional class. There is no [...] and ventricular function don e at the [facility]. LVEF 78%. C. Holter Monitor 08/16/13 [...] concerns. Electronically signed by: Jared Mcdonough MD [facility] 02/02/2015 Portions of this chart may have been created with [employer] ([employer]) voice recognition software. Occasi onal wrong-word or [...] | | | | | | [place] [address] | | | | | | [phone] | | | | | | | | +--------+---------+ + + + documented as of this encounter Visit Diagnoses + + | Diagnosis | + + | Paroxysmal atrial tachycardia (HCC) - Primary Paroxysmal supraventricular tachycardia | + + | Syncope, unspecified syncope type | + + | Palpitations | + + documented in this encounter
--- OUTSIDE RECORDS SUMMARY | ~2019-02-28 | XMS | Encounter Summary ---
Demographics + + + | Address | [address] | | | [place] [address] | + + + | Home Phone [...] Providers + +------+ + | Care Furniture Finisher Apprentice Name | Role | Phone | [...] Groin pain, | MD Jared | [address] | | | | | right Hx | [address] | [place], | | | | | of coronary | [address] | [place] [address] | | | | | angiogram | [place], | Phone: | | | | | Peritoneal | [place] [address] | [phone] | | | | | bleeding | Phone: | Fax: | | | | | Procedures | [phone] | [phone] | | | | | CT Abdomen | Fax: | | | | | | Pelvis wo | [phone] | | | | | | Contrast [...] Groin pain, | MD Jared | [address] | | | | | right Hx | [address] | [place], | | | | | of coronary | [address] | [place] [address] | | | | | angiogram | [place], | Phone: | | | | | Peritoneal | [place] [address] | [phone] | | | | | bleeding | Phone: | Fax: | | | | | Procedures | [phone] | [phone] | | | | | CT Abdomen | Fax: | | | | | | Pelvis wo | [phone] | | | | | | Contrast | | | +--------+--------+ + + + + Encounter Details +--------+ + + + + | Date | Type | Department | Care Team | Description | +--------+ + + + + | 03/08/ | Hospital | [facility] | Jared Mcdonough, | Groin pain, right; | | 2014 | Encounter | MED CTR CT [address] | [address] | Hx of coronary | | | | [address] [place], | [place], | angiogram; | | | | [place] [address] | [place] [address] | Peritoneal bleeding | | | | [phone] | [phone] | | | | | | | [...] [place] | | | | | | [address] | | | | | | | | +--------+---------+ + + + | 11/24/ | Office | Cardiology | [place], | | | 2020 | Visit | | SINDHU Erickson [address] | | | | | | [place], | | | | | | [place] [address] | | | | | | [phone] | | | | | | | [...] + | MISCELLANEOUS LAB | | | [phone] | + +---------+ + + | MISCELANIOUS LAB | | | [phone] | + +---------+ + + documented in [...]
--- OUTSIDE RECORDS SUMMARY | ~2019-02-28 | XMS | Encounter Summary ---
Demographics + + + | Address | [address] | | | [place] [address] | + + + | Home Phone [...] Providers + +------+ + | Care E Commerce Developer Name | Role | Phone | [...] + | 02/09/ | [facility] | Kevin Sandoval, | COPD exacerbation | | 2013 | Visit | PULMONARY [address] | [address] | ([facility]) (Primary Dx); | | | | [place], | [place], [place] | COPD (chronic | | | | [place] [address] | [address] | obstructive | | | | [phone] | | pulmonary disease) | | | | | | ([facility]); Central sleep | | | [...] nd it. Keep your chin up. 3. [place] 1 puff into the spacer by pressing [...] your mouth.) 3. Keep your chin up. [place] 1 puff by pressing down on the [...] it in a dry p lace. The [employer]. [address] [place] [address]. All righ ts reserved. This information is [...] patient was an emergency department at the [facility] [place] n [place]. The patient has [...] [facility]. The patient does cough chronically, and does [...] of Need: Lifetime. Please send order t [facility]. This is not a new order, just [...] | | | | | [facility] | | | | | | [address] | | | | | | | | +--------+---------+ + + + | 11/24/ | Office | Cardiology | [place], | | | 2020 | Visit | | SINDHU Erickson [address] | | | | | | [place], | | | | | | [place] [address] | | | | | | [phone] | | | | | | | [...]
--- OUTSIDE RECORDS SUMMARY | ~2019-02-28 | XMS | Encounter Summary ---
Demographics + + + | Address | [address] | | | [place] [address] | + + + | Home Phone [...] Team Providers + +------+ + | Care Oceanographic Meteorologist Name | Role | Phone | + [...] [address] | | | | | [place], | [place], | | | | | [place] [address] | [place] [address] | | | | | [phone] | [phone] | | | | | | | [...] | | | | | | [place] [address] | | | | | | [phone] | | | | | | | | +--------+---------+ + + + documented as of this encounter Visit Diagnoses Not on filedocumented in this encounter"
--- OUTSIDE RECORDS SUMMARY | ~2019-02-28 | XMS | Encounter Summary ---
Demographics + + + | Address | [address] | | | [place] [address] | + + + | Home Phone [...] Team Providers + +------+ + | Care Travel Cota Name | Role | Phone | + [...] + + | 09/07/ | [facility] [place] | [place], | COPD exacerbation | | 2012 | Visit | PULMONARY [address] | Loreta Alonso MD | ([facility]) (Primary Dx); | | | | [place], | | Sleep apnea; | | | | [place] [address] | | Allergic rhinitis; | | | | [phone] | | Insomnia | +--------+---------+ + + [...] Instructions Patient Instructions Loreta London MD - 09/07/2012 10:59 AM PDTUse Combivent 2 puf fs 4 times a day. Start cetirizine 10mg daily. Take prednisone taper. Try and work on regulating your sleep schedule. If you are still having dizziness, let Dr. Cherry know. Glazing Department Supervisor at [facility]: Ruben Tucker MD documented in this encounter Progress Notes Loreta London MD - 09/07/2012 10:42 AM PDTFormatting of this note might be differe nt from the original. Sleep Follow Up MD [place] Pulmonary and Critical Care [facility] [address] [place], [address] [facility] Rosario Malik is a 47 y.o. female [...] planning on her d ad driving to [place]. Past Medical History Past Medical History Diagnosis [...] 1 Years of Education: 13 Occupational History [employer] Social History Main Topics Smoking status: [...] AHI: 47.1 (complex sleep apnea) Machine type: [employer] auto CPAP Home Health Company: [employer] CPAP Pressure: 11-14 cmH2O Median Titrated Pressure: [...] to clinic not scheduled given move to [place], or sooner with concerns. CC: Juan Cherry Portions of this report were transcribed using voice recognition software. Every effort wa s made to ensure accuracy; however, inadvertent computerized tip stitcher errors may be pre sent. documented in [...] | | | | | | [place] [address] | | | | | | [phone] | | | | | | | [...]
--- OUTSIDE RECORDS SUMMARY | ~2019-02-28 | XMS | Encounter Summary ---
Demographics + + + | Address | [address] | | | [place] [address] | + + + | Home Phone [...] Team Providers + +------+ + | Care Refuse And Recycling Worker Name | Role | Phone | [...] + + | 02/14/ | Telephone | [facility] | Jesus Quiles | Shortness of Breath | | 2012 | | PULMONARY [address] | MD [place] [address] [facility] | | | | | [place], | [place], [place] | | | | | [place] [address] | [address] | | | | | [phone] | | | +--------+ + + + [...] [place] | | | | | | [address] | | | | | | | | +--------+---------+ + + + | 11/24/ | Office | Cardiology | [place], | | | 2019 | Visit | | SINDHU Erickson [address] | | | | | | [place], | | | | | | [place] [address] | | | | | | [phone] | | | | | | | | +--------+---------+ + + + documented as of this encounter Visit Diagnoses + + | Diagnosis | + + | COPD (chronic obstructive pulmonary disease) (HCC) - Primary Chronic airway | | obstruction, not elsewhere classified | + + documented in this encounter"
--- OUTSIDE RECORDS SUMMARY | ~2019-02-28 | XMS | Encounter Summary ---
Demographics + + + | Address | [address] | | | [place] [address] | + + + | Home Phone [...] Team Providers + +------+ + | Care Chassis Driver Name | Role | Phone | [...] Place of | [address] | [place], | | | | | occurrence, | [place] | [place] [address] | | | | | industrial | [place], [place] | Phone: | | | | | places and | [address] | [phone] | | | | | premises | Phone: | Fax: | | | | | | [phone] | [phone] | | | | | | Fax: | | | | | | | [phone] | | +--------+ + + + + [...] + + | 04/30/ | Office | [facility] | Brian Miranda | Sprain of chest wall | | 2014 | Visit | [facility] | MD [address] | (Primary Dx); Place | | | | [place] [address] | [address] [facility] | of occurrence, | | | | [address] [place] | [place] [address] | industrial places | | | | [facility], [place] | [phone] | and premises | | | | [address] | | | | | | [phone] | | | +--------+---------+ + + + [...] - 04/30/2013 6:41 PM PSTClaim [place]: [id number] Date of injury: 04/05/13 Employer:[employer] Guarantor: [...] more easily, while she goes to the [place] process. She'll continue on work restrictions followup [...] [place] | | | | | | [address] | | | | | | | | +--------+---------+ + + + | 11/24/ | Office | Cardiology | [place], | | | 2019 | Visit | | SINDHU Erickson [address] | | | | | | [place], | | | | | | [place] [address] | | | | | | [phone] | | | | | | | [...]
--- OUTSIDE RECORDS SUMMARY | ~2019-02-28 | XMS | Encounter Summary ---
Demographics + + + | Address | [address] | | | [place] [address] | + + + | Home Phone [...] Providers + +------+ + | Care Budget Record Clerk Name | Role | Phone | + +------+ + | Juan Cherry DO | PCP | | + +------+ + Encounter Details +--------+ + + + + | Date | Type | Department | Care Team | Description | +--------+ + + + + | 01/07/ | Hospital | [facility] | Lencho Astorga, | Contusion of foot | | 2012 | Encounter | MED CTR XRAY [address] | MD [address] | including toes | | | | [place] | [place], [place] | | | | | [place] [address] | [address] | | | | | [phone] | | | +--------+ + + + [...] [place] | | | | | | [address] | | | | | | | | +--------+---------+ + + + | 11/24/ | Office | Cardiology | [place], | | | 2019 | Visit | | SINDHU Erickson [address] | | | | | | [place], | | | | | | [place] [address] | | | | | | [phone] | | | | | | | [...] | [facility] Diagnostic Imaging | [place] | | Department [address] [facility] | [facility] | | [ rep [address]] [ rep [facility] | | [facility]] Signed | - IMAGING | | | | | Patient Name: JADYN SCHMITZ | | | Physician: FRANCA : 1965 Age: 47 Sex: F Unit | | | #: [id number] Exam Date: 01/07/13 Location: | | | [facility] [place] Report #: [id number] Page: | | | %(RAD)RES..mtdd.print.filter("pg") of %(RAD) | | | RES..mtdd.print.filter("tpg") | | | | | | Accession Number: [id number] | | | LEFT FOOT, 01/07/2013 CLINICAL [...] Transcribed | | | Date/Time: 01/07/2013 15:01 Double Spindle Shaper Operator: | | | <<Signature on File>> | | | Kobe | | | MD Tor01/07/13 1709 <Electronically signed by Kobe Lentz MD> | | | Kobe Lentz MD 01/07/13 1430 Double Spindle Shaper Operator: [employer] | | | [email or web address]/14/13 1501 Lencho Astorg[place] MD | | + + + + + + + + | Performing | Address | City/State/Zipcode | Phone Number | | Organization | | | | + + + + + | [facility] | [address] | [place] | [phone] | | [facility] | | [address] | | | - IMAGING | | | | + + + + + documented in this encounter Visit Diagnoses + + | Diagnosis | + + | Contusion of foot including toes Contusion of foot | + + documented in this encounter
--- OUTSIDE RECORDS SUMMARY | ~2019-02-28 | XMS | Encounter Summary ---
Demographics + + + | Address | [address] | | | [place] [address] | + + + | Home Phone [...] Team Providers + +------+ + | Care Ct Tech Name | Role | Phone | + +------+ + | Juan Cherry DO | PCP | | + +------+ + Reason for Visit + + + | Reason | Comments | + + + | Abdominal Pain | exam 5/ lower abd x 1 day | + + + Encounter Details +--------+---------+ + + + | Date | Type | Department | Care Team | Description | +--------+---------+ + + + | 11/20/ | Office | [facility] | Dre Gibosn MD | Diverticulitis | | 2013 | Visit | CARE [address] | [address] | (Primary Dx); | | | | [place] | Abdominal pain | | | | [address] | [address] | | | | | [phone] | | | +--------+---------+ + + + [...] + + + | Blood Pressure | 84/54 | 11/20/2013 10:37 AM | | | | | PDT | | + + + + + | Pulse | 94 | 11/20/2013 10:37 AM | | | | | PDT | | + + + + + | Temperature | 36.9 C (98.4 F) | 11/20/2013 10:37 AM | | | | | PDT | | + + + + + | Respiratory Rate | 20 | 11/20/2013 10:37 AM | | | | | PDT | | + + + + + | Oxygen Saturation | 97% | 11/20/2013 10:37 AM | | | | | PDT | | + + + + + | Inhaled Oxygen | - | - | | | Concentration | | | | + + + + + | Weight | 69.4 kg (153 lb) | 11/20/2013 10:37 AM | | | | | PDT | | + + + + + | Height | 157.5 cm (5' 2") | 11/20/2013 10:37 AM | | | | | PDT | | + + + + + | Body Mass Index | 27.98 | 11/20/2013 10:37 AM | | | | | PDT [...] of this encounter Patient Instructions Patient Instructions Dre Gibson MD - 11/20/2013 11:14 AM PDT Diverticulitis Some people develop pouches along the wall of the colon as they get older. The pouches, eloy led diverticuli, usually cause no symptoms. If the pouches become blocked, an infection may occur known as diverticulitis. This causes lower abdominal pain and fever. If not treated, i t can become a serious condition, causing an abscess to form inside the pouch. The abscess m ay block the instestinal tract even or rupture, spreading infection throughout the abdomen. When treatment is started early, oral antibiotics alone may be enough to cure diverticuliti s. This method is tried first. However, if you do not improve or if your condition worsens w hile you are trying oral antibiotics, it will be necessary to admit you to the hospital for IV antibiotics. Severe cases may require surgery. Home care The following guidelines will help you care for your diverticulitis at home: During the acute illness, rest and follow a low-fiber diet: Foods to Include: flake cereal, mashed potatoes, pancakes, waffles, pasta, white bread, rice, applesauce, bananas, eggs, meat, fish, poultry, tofu, cooked vegetables without seeds. Foods to Avoid: bran, wheat germ, bread or cereal with nuts, wheatgerm flour, brown or w ild rice, corn, corn meal, corn bread, fruits with skins; raw vegetables. Take antibiotics exactly as directed. Do not miss any doses or stop taking the medicatio n, even if you feel better. Monitor your temperature and report any rising temperature to your doctor. Preventing future attacks Once you have had an episode of diverticulitis, you are at risk of having a recurrence. Aft er you have recovered from this episode, you may be able to reduce your risk by eating a hig h-fiber diet (20 35 gm/day of fiber). This cleans out the colon pouches that already exist and prevent new ones from forming. Foods high in fiber includes fresh fruits and edible pee lings, raw or lightly cooked vegetables, whole grain cereals, breads with nuts or seeds, dri ed beans and peas, bran. Follow-up care Follow up with your doctor as advised or sooner if you are not improving in the next two da ys. When to seek medical care Get prompt medical attention if any of the following occur: Fever of 100.4F (38C) or higher, or as directed by your health care provider Repeated vomiting or swelling of the abdomen Weakness, dizziness, light-headedness Increasing abdominal pain that becomes severe or spreads to your back Pain that moves to the right lower abdomen Rectal bleeding (red, black or maroon color of the stools) Unexpected vaginal bleeding [id number] [place] [address]. All rights reserve d. This information is not intended as a substitute for professional medical care. Always fo llow your healthcare professional's instructions. CLEAR LIQUIDS BY MOUTH FOR 24 HOURS YOU SHOULD HAVE IMPROVEMENT WITHIN 48-72 HOURS RETURN FOR RE-EVALUATION FOR MORE SEVERE PAIN, HIGH FEVER, BLEEDING; documented in this encounter Progress Notes Dre Gibson MD - 11/20/2013 11:05 AM PDT Subjective: Patient ID: Rosario Malik is a 48 y.o. female. 24 hour history of lower midline abd ominal pain, with slight radiation to the left side. She notes the pain is slightly relieve d by passing her, although she denies urethral burning or urinary frequency. She has had mo re frequent bowel movements in the last few days, no blood, but the stool is seen harder maria n usual. No fever. Past history of occasional UTI. Past history of several episodes of acute diverticulitis, and she says this pain reminds her of those episodes. HPI Patient's medications, allergies, past medical, surgical, social and family histories were reviewed and updated as appropriate. Review of Systems positive for her chronic illnesses Objective: Physical Exam Constitutional: She appears well-developed and well-nourished. No distress. Looks chronically more than acutely ill, oxygen dependent Abdominal: There is tenderness. Her abdomen shows normoactive bowel sounds. Palpation reveals deep left lower quadran t tenderness with slight guarding, some early rebound tenderness is present. No masses felt . There's no generalized peritoneal findings. No CVA tenderness Urinalysis is within normal limits Assessment: Acute diverticulitis Plan: Cipro 500 mg twice a day for 7 days. Metronidazole 500 mg twice a day for 7 days. 24 hour s on clear liquids. Report worsening of symptoms such as severe pain, bleeding, high fever. documented in this enc ounter Plan of Treatment +--------+---------+ + + + | Date | Type | Specialty | Care Team | Description | +--------+---------+ + + + | 03/31/ | Office | Pulmonology | Mukul Clark MD | | | 2019 | Visit | | [address] | | | | | | [place], [place] | | | | | | [address] | | | | | | | | +--------+---------+ + + + | 11/24/ | Office | Cardiology | [place], | | | 2019 | Visit | | SINDHU Erickson [address] | | | | | | [place], | | | | | | [place] [address] | | | | | | [phone] | | | | | | | | +--------+---------+ + + + documented as of this encounter Procedures + +--------+ + + + | Procedure Name | Priori | Date/Time | Associated Diagnosis | Comments | | | ty | | | | + +--------+ + + + | POCT URINALYSIS, | Routin | 11/20/2013 | Abdominal pain | Results for this | | AUTO WITH CONF | e | 11:25 AM | | procedure are in the | | | | PDT | | results section. | + +--------+ + + + documented in this encounter Results POCT Urinalysis Dipstick Automated (11/20/2013 11:25 AM PDT) + + + + + [...] + + | Specific | 1.010 | | | | | [place], | | | | | | UA, POC | | | | | + + + + + + | Blood, UA, | 6.0 mg/dL | | | | | POC | | | | | + + + + + + | pH, UA, POC | 6.0 | | | | + + + + + + | Protein, | Negative | | | | | UA, POC | | | | | + + + + + + | Urobilinoge | 0.2 E.U./dL | | | | | n, UA, POC | | | | | + + + + + + | Nitrite, | Negative | | | | | UA, POC | | | | | + + + + + + | Leukocyte | Negative | | | | | Esterase, | [...] | Diagnosis | + + | Diverticulitis - Primary Diverticulitis of colon (without mention of hemorrhage) | + + | Abdominal pain Abdominal pain, unspecified site | + + documented in this encounter
--- OUTSIDE RECORDS SUMMARY | ~2019-02-28 | XMS | Clinical Summary ---
Demographics + + + | Address | [address] | | | [place] [address] | + + + | Home Phone [...] Team Providers + +------+ + | Care Spanner Operator Name | Role | Phone | [...] [facility]. | | | | | | | [...] [facility]. | | | | | | + [...] send | | | order to [facility] | | | Reported on | | [...] + + + + + | Overview: [facility] 04/12/2010 Diverticulosis | | | | Next [...] + + | Overview: Echocardiogram, 08/23/[address] [facility] shows normal | | systolic left [...] + +---+ + + | Overview: AKIRA [id number] Decision | + + + +---+ | [...] | | | | | | [place] [address] | | | | | | [phone] | | | | | | | [...] CLAY | | | | | | ([id number]) on 12/23/2018 | | | | | [...] +--------+ +---------+--------+ | MEDICARE | MEDICA | [id number] | | [phone] | | Medica | [...] rigoberto | | | 5 (Home) | [address] | | | | | | [phone] | | | | | | | 4 (Work) | | + +--------+ +--------+ + + | Rosario Malik | Worker | Self | [birth year] | [address] | | | s Comp | | 1965 | [phone] | [place] | | | | | | 1 ([place]) | [address] | | | | | | [phone] | | | | | | | 3 (Work) | | + +--------+ +--------+ + + Advance Directives + + + + + | Type | Date Recorded | Patient | Explanation | | | | Client Services Manager | | + + + + + | Power of | | | | | Paralegal Secretary | | | | + + + [...]
--- OUTSIDE RECORDS SUMMARY | ~2019-02-28 | XMS | Encounter Summary ---
Demographics + + + | Address | [address] | | | [place] [address] | + + + | Home Phone [...] Team Providers + +------+ + | Care Jewel Hole Finish Opener Name | Role | Phone | [...] + + | 05/19/ | Office | [facility] | Brian Miranda | Sprain of chest wall | | 2013 | Visit | MED CTR THERAPY PT | MD [address] | (Primary Dx) | | | | OP [address] | [facility] | | | | | [place] | [place] [address] | | | | | [address] | [phone] | | | | | [phone] | | | | | | | Janey Low, | | | | | | LOAN OFFICER [address] | | | | | | [place] [facility] [place] | | | | | | [address] | | | | | | [phone] | | | | | | | [...] of this encounter Progress Notes Janey Low, LOAN OFFICER - 05/19/2013 1:38 PM PDTFormatting of this note might be different f rom the original. [facility] CTR THERAPY PT OP [address] [place] [address] Physical Therapy Daily Treatment Note Date: 05/19/2013 [...] [place] | | | | | | [facility] | | | | | | [address] | | | | | | | | +--------+---------+ + + + | 11/24/ | Office | Cardiology | [place], | | | 2020 | Visit | | SINDUH Erickson [address] | | | | | | [place], | | | | | | [place] [address] | | | | | | [phone] | | | | | | | | +--------+---------+ + + + documented as of this encounter Visit Diagnoses + + | Diagnosis | + + | Sprain of chest wall - Primary Other specified sites of sprains and strains | + + documented in this encounter
--- OUTSIDE RECORDS SUMMARY | ~2019-02-28 | XMS | Encounter Summary ---
Demographics + + + | Address | [address] | | | [place] [address] | + + + | Home Phone [...] Providers + +------+ + | Care Superintendent Electric Power Name | Role | Phone | + +------+ + | Juan Cherry DO | PCP | | + +------+ + Encounter Details +--------+ + + + + | Date | Type | Department | Care Team | Description | +--------+ + + + + | 10/19/ | Hospital | [facility] | Kevin Sandoval, | COPD (chronic | | 2013 | Encounter | MED CTR PULMONARY | MD [address] | obstructive | | | | FUNCTION [address] | [place], [place] | pulmonary disease) | | | | [place], | [address] | (HCC) | | | | [place] [address] | | | | | | [phone] | | | +--------+ + + + [...] | | | | order to [facility]. | | | | | + [...] | | Take 3 mLs by | | 0 | | | | albuterol-ipratropiu | nebulization every 4 | | | | 4 | | m (DUONEB) 2.5-0.5 | hours [...] tablet by | 30 | 0 | 10/20/19 | | | (DELTASONE) 10 mg | mouth Daily for 12 | tablet | | 14 | 4 | | tabletIndications: | days. 4 daily and | | | | | | COPD exacerbation | decrease by 1 tab | | | | | | ([facility]) | every 3 days | | | | | + [...] + + | SPIRIVA HANDIHALER | INHALE 1 CAPSULE BY | 30 | 0 | 10/01/19 | | | 18 MCG inhalation | MOUTH DAILY | capsule | | 14 | 4 | | capsule | | [...] [place] | | | | | | [address] | | | | | | | | +--------+---------+ + + + | 11/24/ | Office | Cardiology | [place], | | | 2019 | Visit | | SINDHU Erickson [address] | | | | | | [place] | | | | | | [place] [address] | | | | | | [phone] | | | | | | | | +--------+---------+ + + + documented as of this encounter Procedures + +--------+ + + + | Procedure Name | Priori | Date/Time | Associated Diagnosis | Comments | | | ty | | | | + +--------+ + + + | PFT PULMONARY | JOHNNY | 10/19/2013 | COPD (chronic | | | FUNCTION TESTING | | 9:44 AM | obstructive | | | ORDERS | | PDT | pulmonary disease) | | | | | | (HCC) | | + +--------+ + + + | DIAGNOSTIC REPORT - | | 10/19/2013 | | | | EXTERNAL SCAN | [...]
--- OUTSIDE RECORDS SUMMARY | ~2019-02-28 | XMS | Encounter Summary ---
Demographics + + + | Address | [address] | | | [place] [address] | + + + | Home Phone [...] Providers + +------+ + | Care Hand Ii Cutter Name | Role | Phone | [...] + | 03[facility]22/ | [facility] [place] | Offenstein, | COPD exacerbation | | 2013 | Visit | PULMONARY [address] | Loreta Alonso MD | ([facility]) (Primary Dx); | | | | [place], | | Complex sleep apnea | | | | [place] [address] | | syndrome | | | | [phone] | | | +--------+---------+ + + + [...] [facility] [address] [place], [address] HPI Rosario Malik is a 48 y.o. 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 Please send order to [facility]. 1 each 0 Respiratory Therapy Supplies MISC Change CPAP back to 11-14 cm H2O. All necessary suppl ies. No oxygen bleed in. Diagnosis Code(s)327.23. Length of Need: Lifetime. Please send orde r to [facility]. This is not a new order, just [...] made to ensure accuracy; however, inadvertent computerized pre algebra teacher errors may be pre sent. documented [...] | | | | | | [place] [address] | | | | | | [phone] | | | | | | | | +--------+---------+ + + + documented as of this encounter Visit Diagnoses + + | Diagnosis | + + | COPD exacerbation (HCC) - Primary Obstructive chronic bronchitis with exacerbation | + + | Complex sleep apnea syndrome Unspecified sleep apnea | + + documented in this encounter
--- OUTSIDE RECORDS SUMMARY | ~2019-02-28 | XMS | Encounter Summary ---
Demographics + + + | Address | [address] | | | [place] [address] | + + + | Home Phone [...] Team Providers + +------+ + | Care Instrument Repairer Name | Role | Phone | + +------+ + PCP | Unavailable | + +------+ + Encounter Details +--------+ + + + + | Date | Type | Department | Care Team | Description | +--------+ + + + + | 05/11/ | Hospital | [facility] | Berna Vizcaino MD | Special screening | | 2010 | Encounter | CONVERSION DEP [address] | [address] | for osteoporosis | | | | [address] | [place] [address] | | | | | [place], [place] | [phone] | | | | | [address] | | | | | | [phone] | | | +--------+ + + + [...] | | | | | | [place] [address] | | | | | | [phone] | | | | | | | [...] + + + | [facility] [address] Ph: | | | Patient Name: JADYN SCHMITZ Date of : | | | 1965 Medical Record: [id number] Account: [id number] | | | Exam Date/Time: 05/11/2010 11:30 [...] was scanned in the anterior projection and pwjxip-zg-lrrcklym | | | values were drawn about the vertebral segments of L1 through L4 at | | | the levels where accurate assessment was possible. A bone mineral | | | analysis was also performed on the left hip with asnbpx-te-dsbvtxfe | | | areas including the femoral [...] - 10/17/2018 5:21 PM PDT | | [facility] | | [facility] [address] | | | | | | Patient Name: JADYN SCHMITZ W | | Date of : 1965 | | Medical Record: [id number] | | Account: [id number] | | | | | | Exam [...] | scanned in the anterior projection and sgybyf-qy-vpmbpczc values were drawn | | about the vertebral segments of L1 through L4 at the levels where accurate | | assessment was possible. A bone mineral analysis was also performed on the | | left hip with kjgzjb-cn-szmvbtku areas including the femoral neck measured. | [...]
--- OUTSIDE RECORDS SUMMARY | ~2019-02-28 | XMS | Encounter Summary ---
Demographics + + + | Address | [address] | | | [place] [address] | + + + | Home Phone [...] Team Providers + +------+ + | Care Tufting Machine Operator Name | Role | Phone [...] | | [place] | [facility] | | | | | [address] | [place] [address] | | | | | [phone] | [phone] | | | | | | | [...] [place] | | | | | | [address] | | | | | | | | +--------+---------+ + + + | 11/24/ | Office | Cardiology | [place], | | | 2019 | Visit | | SINDHU Erickson [address] | | | | | | [place], | | | | | | [place] [address] | | | | | | [phone] | | | | | | | | +--------+---------+ + + + documented as of this encounter Visit Diagnoses Not on filedocumented in this encounter"
--- OUTSIDE RECORDS SUMMARY | ~2019-02-28 | XMS | Encounter Summary ---
Demographics + + + | Address | [address] | | | [place] [address] | + + + | Home Phone [...] | + + +---------+ + | Juana Saniz | ECON | Unknown | | + + +---------+ + | Vahe Khan | ECON | Unknown | | + + +---------+ + Care Team Providers + +------+ + | Care Pathologist Name | Role | Phone | [...] | Loreta Alonso MD | ([facility]) (Primary Dx); | | | | [place], | | [place] (obstructive | | | | [place] [address] | | sleep apnea); | | | | [phone] | | Central sleep apnea; | | [...] MD [place] Pulmonary and Critical Care [facility] [address] [place], [address] HPI Rosario Malik is a 48 y.o. [...] left her on the Spiriva (started in [place]), and continued Adva ir. 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 1 each 0 Respiratory Therapy [...] Data: CPAP Data: Dates: 09/29/12-12/27/12 Machine type: [employer] auto CPAP Home Health Company: Luminate CPAP Pressure: 11-14 cmH2O Median Titrated Pressure: 11.6 cmH2O 95%tile Pressure: 13.7 cmH2O Maximum Pressure: 13.9 cmH2O AHI: 2.4 events/hour Total number of days: 90 Number of days used: 80 Median daily usage: 4:27 hours Percent of days used for more than 4 hours: 48 % Median leak: 0.0 L/min Records from [place] ER visits and clinic visits are reviewed. It is noted that she did ac tually go off of her medications for a period of time when she moved. Immunization History Administered Date(s) Administered INFLUENZA, >= 4YO W/PRESERVATIVE IM 12/12/2010 INFLUENZA, PRESERVATIVE FREE IM 12/13/2011, 11/27/2012 Pneumococcal (Adult) 02/24/2011 Tdap 01/22/2008 Assessment 1. COPD exacerbation - On prednisone. Poor medication compliance, here and in [place]. We have ordered her Spiriva. I told [...] made to ensure accuracy; however, inadvertent computerized faro dealer errors may be pre sent. documented [...] W | | | | | | [place], | | | | | | [place] [address] | | | | | | [phone] | | | | | | | [...]
--- OUTSIDE RECORDS SUMMARY | ~2019-02-28 | XMS | Encounter Summary ---
Demographics + + + | Address | [address] | | | [place] [address] | + + + | Home Phone [...] Providers + +------+ + | Care Clock And Watch Assembler Name | Role | Phone | + +------+ + PCP | Unavailable | + +------+ + Encounter Details +--------+ + + + + | Date | Type | Department | Care Team | Description | +--------+ + + + + | 03/04/ | Hospital | [facility] | Jason Carvajal, | | | 2010 - | Encounter | MED CTR MED ONC | [address] | | | | | [address] [place] | [address] [place] | | | 03/06/ | | [place] [address] | [address] | | | 2010 | | [phone] | | | +--------+ + + + [...] [place] | | | | | | [address] | | | | | | | | +--------+---------+ + + + | 11/24/ | Office | Cardiology | [place], | | | 2019 | Visit | | SINDHU Erickson [address] | | | | | | [place], | | | | | | [place] [address] | | | | | | [phone] | | | | | | | | +--------+---------+ + + + documented as of this encounter Visit Diagnoses Not on filedocumented in this encounter"
--- OUTSIDE RECORDS SUMMARY | ~2019-02-28 | XMS | Encounter Summary ---
Demographics + + + | Address | [address] | | | [place] [address] | + + + | Home Phone [...] Team Providers + +------+ + | Care Acupressure Therapist Name | Role | Phone | [...] + + | 06/02/ | Office | [facility] | Andriy Weber | Pyuria (Primary Dx) | | 2018 | Visit | [address] | MD [address] | | | | | [place] | [facility] | | | | | [address] | [place] [address] | | | | | [phone] | [phone] | | | | | | | [...] a past medical history of Adrenal insufficiency ([facility]); Anxiety; Asthma; 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 Please send order to [facility]. 1 each 0 Respiratory Therapy Supplies [facility] Change CPAP back to 11-14 cm H2O. [...] urethra was dilated today to a 26 [place] with Parke sounds. She tolerated this wel l without [...] underwent a urethral dilatation to a 26 [place] in size. I've asked her to call [...] This document was generated in part using jslyhl voice recognition software. Although ever y effort is made to edit the content, manual arts teacher errors may occur. Occasional wrong word or [...] [place] | | | | | | [address] | | | | | | | | +--------+---------+ + + + | 11/24/ | Office | Cardiology | [place], | | | 2019 | Visit | | SINDHU Erickson [address] | | | | | | [place], | | | | | | [place] [address] | | | | | | [phone] | | | | | | | [...] 1.001 - 1.030 | | | | [place], | | | | | | [facility], [...]
--- OUTSIDE RECORDS SUMMARY | ~2019-02-28 | XMS | Encounter Summary ---
Demographics + + + | Address | [address] | | | [place] [address] | + + + | Home Phone [...] Team Providers + +------+ + | Care Subcontract Administrator Name | Role | Phone | + +------+ + PCP | Unavailable | + +------+ + Encounter Details +--------+ + + + + | Date | Type | Department | Care Team | Description | +--------+ + + + + | 05/01/ | Hospital | [facility] | Alexi Guaman, | | | 2010 | Encounter | MED CTR EMERGENCY | [address] | | | | | CENTER [address] | [place] | | | | | [place] | [address] | | | | | [address] | | | | | | [phone] | | | +--------+ + + + [...] [place] | | | | | | [address] | | | | | | | | +--------+---------+ + + + | 11/24/ | Office | Cardiology | [place], | | | 2019 | Visit | | SINDHU Erickson [address] | | | | | | [place], | | | | | | [place] [address] | | | | | | [phone] | | | | | | | [...] + | [address] | [address] | [place] | [phone] | | [facility] | | [address] | | | - LABORATORY | | | | + + + + + | [facility] [facility] | [address] | [place] | | | [facility] | | [address] | | | - LABORATORY | | [...] + | [facility] | [address] | [place], [place] | [phone] | | [facility] | | [address] | | | - LABORATORY | | | | + + + + + | [facility] | [address] | [place], [place] | | | [facility] | | [address] | | | - LABORATORY | | | | + + + + + XR Chest PA or AP (05/01/2010 5:32 PM PST) + + | Specimen | + + | | + + + + + | Narrative | Performed At | + + + | [facility] Diagnostic [facility] Department | [facility] | | [address] [facility] | [facility] | | PORTABLE CHEST, 05/01/2010 AT | [...] Transcribed Date/Time: | | | 05/02/2010 11:54 Cart Pusher: <Electronically Signed | | | by Cesar Ren MD> 05/02/10 1555 | | + + + + ---------+ | Procedure Note | + ---------+ | Reed, Rad Conversion - 04/02/2013 2:24 PM [facility] | | Diagnostic Imaging Department [address] [place] [address] | | PORTABLE CHEST, 05/01/2010 AT 1807 [...] 11:04 Transcribed Date/Time: 05/02/2010 11:54 | | Cart Pusher: <Electronically Signed by Cesar Ren MD> 05/02/10 [...] 11:04 | |Transcribed Date/Time: 05/02/2010 11:54 | |Cart Pusher: | |<Electronically Signed by Cesar Ren MD> 05/02/10 1555 | + ---------+ + +---------+ + + | Performing | Address | City/State/Zipcode | Phone Number | | Organization | | | | + +---------+ + + | [place] | | | | | [facility] | | | | + +---------+ + + documented in this encounter Visit Diagnoses Not on filedocumented in this encounter"
--- OUTSIDE RECORDS SUMMARY | ~2019-02-28 | XMS | Encounter Summary ---
Demographics + + + | Address | [address] | | | [place] [address] | + + + | Home Phone [...] Providers + +------+ + | Care Manager Eligibility Name | Role | Phone | + [...] + + | 09/17/ | Telephone | [facility] | Kevin Sandoval, | Other (increased | | 2013 | | PULMONARY [address] | MD [address] | shortness of breath) | | | | [place], | [place], [place] | | | | | [place] [address] | [address] | | | | | [phone] | | | +--------+ + + + [...] [place] | | | | | | [address] | | | | | | | | +--------+---------+ + + + | 11/24/ | Office | Cardiology | [place], | | | 2020 | Visit | | SINDHU Erickson [address] | | | | | | [place], | | | | | | [place] [address] | | | | | | [phone] | | | | | | | | +--------+---------+ + + + documented as of this encounter Visit Diagnoses Not on filedocumented in this encounter"
--- OUTSIDE RECORDS SUMMARY | ~2019-02-28 | XMS | Encounter Summary ---
Demographics + + + | Address | [address] | | | [place] [address] | + + + | Home Phone [...] Providers + +------+ + | Care Lunch Wagon Operator Name | Role | Phone | + +------+ + PCP | Unavailable | + +------+ + Encounter Details +--------+ + + + + | Date | Type | Department | Care Team | Description | +--------+ + + + + | 04/21/ | Hospital | [facility] | Nestor Martinez, | | | 2010 | Encounter | MED CTR EMERGENCY | [address] | | | | | CENTER [address] | [place], [place] | | | | | [place] | [address] | | | | | [address] | | | | | | [phone] | | | +--------+ + + + [...] [place] | | | | | | [id number] | | | | | | | | +--------+---------+ + + + | 11/24/ | Office | Cardiology | [place], | | | 2019 | Visit | | SINDHU Erickson [address] | | | | | | [place], | | | | | | [place] [address] | | | | | | [phone] | | | | | | | | +--------+---------+ + + + documented as of this encounter Visit Diagnoses Not on filedocumented in this encounter"
--- OUTSIDE RECORDS SUMMARY | ~2019-02-28 | XMS | Encounter Summary ---
Demographics + + + | Address | [address] | | | [place] [address] | + + + | Home Phone [...] + +------+ + | Care Quality Control Checker Name | Role | Phone | [...] [address] | | | | | [place], | [place] | | | | | [place] [address] | [address] | | | | | [phone] | | | +--------+--------+ + + + [...] [place] | | | | | | [address] | | | | | | | | +--------+---------+ + + + | 11/24/ | Office | Cardiology | [place], | | | 2019 | Visit | | SINDHU Erickson [address] | | | | | | [place], | | | | | | [place] [address] | | | | | | [phone] | | | | | | | | +--------+---------+ + + + documented as of this encounter Visit Diagnoses + + | Diagnosis | + + | COPD (chronic obstructive pulmonary disease) (HCC) - Primary Chronic airway | | obstruction, not elsewhere classified | + + documented in this encounter"
--- OUTSIDE RECORDS SUMMARY | ~2019-02-28 | XMS | Encounter Summary ---
Demographics + + + | Address | [address] | | | [place] [address] | + + + | Home Phone [...] Providers + +------+ + | Care Inspection Supervisor Name | Role | Phone | + +------+ + | Juan Cherry DO | PCP | | + +------+ + Encounter Details +--------+ + + + + | Date | Type | Department | Care Team | Description | +--------+ + + + + | 09/09/ | Hospital | [facility] | Conversion | Pain | | 2015 | Encounter | CONVERSION DEP [address] | Transaction, | | | | | [address] | Provider Unknown | | | | | [place], [place] | [phone] | | | | | [address] | | | | | | [phone] | | | +--------+ + + + [...] | | | | | [place] | | | | | | [id number] | | | | | | | | +--------+---------+ + + + | 11/24/ | Office | Cardiology | [place], | | | 2019 | Visit | | SINDHU Erickson [address] | | | | | | [place], | | | | | | [place] [address] | | | | | | [phone] | | | | | | | [...]
--- OUTSIDE RECORDS SUMMARY | ~2019-02-28 | XMS | Encounter Summary ---
Demographics + + + | Address | [address] | | | [place] [address] | + + + | Home Phone [...] Team Providers + +------+ + | Care Dynamite Cartridge Crimper Name | Role | Phone | + +------+ + PCP | Unavailable | + +------+ + Encounter Details +--------+ + + + + | Date | Type | Department | Care Team | Description | +--------+ + + + + | 12/01/ | [facility] | [facility] | | | | 2008 - | Encounter | MED CTR OP REHAB | | | | | | [address] | | | | 12/24/ | | [place] [address] | | | | 2008 | | [phone] | | | +--------+ + + + [...] [place] | | | | | | [address] | | | | | | | | +--------+---------+ + + + | 11/24/ | Office | Cardiology | [place], | | | 2020 | Visit | | SINDHU Erickson [address] | | | | | | [place], | | | | | | [place] [address] | | | | | | [phone] | | | | | | | | +--------+---------+ + + + documented as of this encounter Visit Diagnoses Not on filedocumented in this encounter"
--- OUTSIDE RECORDS SUMMARY | ~2019-02-28 | XMS | Encounter Summary ---
Demographics + + + | Address | [address] | | | [place] [address] | + + + | Home Phone [...] Team Providers + +------+ + | Care Edger Machine Operator Name | Role | Phone | + +------+ + PCP | Unavailable | + +------+ + Encounter Details +--------+ + + + + | Date | Type | Department | Care Team | Description | +--------+ + + + + | 10/19/ | [facility] | | | | 2008 | Encounter | MED CTR LABORATORY | | | | | | [address] | | | | | | [place] | | | | | | [address] | | | | | | [phone] | | | +--------+ + + + [...] [place] | | | | | | [address] | | | | | | | | +--------+---------+ + + + | 11/24/ | Office | Cardiology | [place], | | | 2020 | Visit | | SINDHU Erickson [address] | | | | | | [place], | | | | | | [place] [address] | | | | | | [phone] | | | | | | | | +--------+---------+ + + + documented as of this encounter Visit Diagnoses Not on filedocumented in this encounter"
--- OUTSIDE RECORDS SUMMARY | ~2019-02-28 | XMS | Encounter Summary ---
Demographics + + + | Address | [address] | | | [place] [address] | + + + | Home Phone [...] Providers + +------+ + | Care Director Global Intelligence Name | Role | Phone | + +------+ + PCP | Unavailable | + +------+ + Encounter Details +--------+ + + + + | Date | Type | Department | Care Team | Description | +--------+ + + + + | 10/17/ | Hospital | [facility] | Kevin Worthy | | | 2010 | Encounter | MED CTR MP INTRA OP | MD Ginny [address] | | | | | [address] | [place], [place] | | | | | [place], [place] | [address] | | | | | [address] | | | | | | [phone] | | | +--------+ + + + [...] [place] | | | | | | [address] | | | | | | | | +--------+---------+ + + + | 11/24/ | Office | Cardiology | [place], | | | 2019 | Visit | | SINDHU Erickson [address] | | | | | | [place], | | | | | | [place] [address] | | | | | | [phone] | | | | | | | | +--------+---------+ + + + documented as of this encounter Visit Diagnoses Not on filedocumented in this encounter"
--- OUTSIDE RECORDS SUMMARY | ~2019-02-28 | XMS | Encounter Summary ---
Demographics + + + | Address | [address] | | | [place] [address] | + + + | Home Phone [...] Team Providers + +------+ + | Care Transplant Surgeon Name | Role | Phone | [...] | | Dx) | | | | [address] | | | | | | [phone] | | | +--------+ + + + [...] have not thoroughly proofread this note, and cabinet abrasive sandblaster erro rs may occur. Nancy Simms C MA - 11/01/2015 8:22 AM PDT Pt. Presents for a DMSO #2 for Interstitial Cystitis. Administrations This Visit dimethyl sulfoxide (RIMSO-50) 50% solution 50 mL Admin Date Action Dose Route Administered By 11/01/2015 Given 50 mL Bladder Instillation Nancy Dalal CMA heparin 10,000 units/mL injection 10,000 Units Admin Date Action Dose Route Administered By 11/01/2015 Given 94887 Units Subcutaneous Nancy Dalal CMA lidocaine 2% [...] | | | | | | [place] [address] | | | | | | [phone] | | | | | | | [...] 1.001 - 1.030 | | | | [place], | | | | | | UA, [...]
--- OUTSIDE RECORDS SUMMARY | ~2019-02-28 | XMS | Encounter Summary ---
Demographics + + + | Address | [address] | | | [place] [address] | + + + | Home Phone [...] + +------+ + | Care Drier Operator Name | Role | Phone | [...] | | | | CENTER [address] | | carried out because | | | | [place] | | of patient's | | | | [address] | | decision (Primary | | | | [phone] | | Dx) | +--------+ + + [...] | | | | | | [place] [address] | | | | | | [phone] | | | | | | | [...] -------- | | | ---- 08/22/2013 18:46 [place] | | | [facility] Emergency COPD Exacerbation; | | | 08/13/2013 20:38 [facility] | | | Emergency Shortness of Breath; | | | | | | COPD Exasperation; | | | | | | Obstructive chronic bronchitis with (acute) exacerbation; 07/18/2013 | | | 12:06 [facility] Emergency Arm | | | Laceration; | | | Open wound of upper | | | arm, without mention of complication; | | | | | | cut on Lft arm; 07/14/2013 00:15 [facility] | | | [facility] Emergency Shortness of Breath; | | | | | | Chronic obstructive asthma with (acute) | | | exacerbation; 06/19/2013 21:06 [facility] | | | [place] [facility] Obstructive chronic bronchitis with (acute) | | | exacerbation; | | | Shortness of | | | Breath; | | | diff breathing; | | | 06/19/2013 11:03 [facility] | | | Emergency COPD exasperation; 05/23/2013 19:52 [place] | | | [facility] Emergency Obstructive chronic | | | bronchitis with (acute) exacerbation; | | | | | | Obstructive chronic bronchitis with (acute) exacerbation; | | | | | | sob; | | | | | | Shortness of Breath; VISIT COUNT (1 YR.) Visits | | | Medicaid [place] Dx Location ------ | | | --------- 13 0 [facility] | | | [facility] 13 0 Total | | | Note: Visits indicate total known visits. Medicaid [place] Dx are the | | | number of primary diagnoses on the [facility]'s non-emergent dx list. | [...]
--- OUTSIDE RECORDS SUMMARY | ~2019-02-28 | XMS | Encounter Summary ---
Demographics + + + | Address | [address] | | | [place] [address] | + + + | Home Phone [...] Team Providers + +------+ + | Care Printed Circuit Board Preassembler Name | Role | Phone | + [...] [address] | | | | | [place], | [place], | | | | | [place] [address] | [place] [address] | | | | | [phone] | [phone] | | | | | | | [...] | | | | | | [place] [address] | | | | | | [phone] | | | | | | | | +--------+---------+ + + + documented as of this encounter Visit Diagnoses Not on filedocumented in this encounter"
--- OUTSIDE RECORDS SUMMARY | ~2019-02-28 | XMS | Encounter Summary ---
Demographics + + + | Address | [address] | | | [place] [address] | + + + | Home Phone [...] Team Providers + +------+ + | Care Polisher And Buffer Name | Role | Phone | + [...] covered) | | | | [place] | [facility] | | | | | [address] | [place] [address] | | | | | [phone] | [phone] | | | | | | | [...] | | | | | | [place] [address] | | | | | | [phone] | | | | | | | | +--------+---------+ + + + documented as of this encounter Visit Diagnoses Not on filedocumented in this encounter"
--- OUTSIDE RECORDS SUMMARY | ~2019-02-28 | XMS | Encounter Summary ---
Demographics + + + | Address | [address] | | | [place] [address] | + + + | Home Phone [...] Team Providers + +------+ + | Care Population Geneticist Name | Role | Phone | + [...] | | | | | pulmonary | [address] | [address] | | | | | disease, | [place], | [place] | | | | | unspecified | [place] [address] | [place], [place] | | | | | COPD type | Phone: | [address] | | | | | (HCC) | [phone] | Phone: | | | | | Pulmonary | Fax: | [phone] | | | | | emphysema, | [phone] | Fax: | | | | | unspecified | | [phone] | | | | | emphysema | | | | | | | type ([facility]) | | | +--------+ + + + + + Encounter Details +--------+---------+ + + + | Date | Type | Department | Care Team | Description | +--------+---------+ + + + | 05/23/ | Office | [facility] | Sharonda Delmycaitie, | Chronic obstructive | | 2017 | Visit | MED CTR CARDIAC | [address] | pulmonary disease, | | | | REHABILITATION [address] | [place], | unspecified COPD | | | | [address] [place] [place] | [place] [address] | type (HCC) (Primary | | | | [place] [address] | [phone] | Dx) | | | | [phone] | | | +--------+---------+ + + + [...] Desean Wheeler - 05/23/2016 3:07 PM PDT [facility] CARDIAC REHABILITATION [address] [place] [address] Cardiac Rehab Date: 05/23/2016 Patient Information Patient [...] [place] | | | | | | [address] | | | | | | | | +--------+---------+ + + + | 11/24/ | Office | Cardiology | [place], | | | 2019 | Visit | | SINDHU Erickson [address] | | | | | | [place], | | | | | | [place] [address] | | | | | | [phone] | | | | | | | | +--------+---------+ + + + documented as of this encounter Visit Diagnoses + + | Diagnosis | + + | Chronic obstructive pulmonary disease, unspecified COPD type (HCC) - Primary | + + documented in this encounter"
--- OUTSIDE RECORDS SUMMARY | ~2019-02-28 | XMS | Encounter Summary ---
Demographics + + + | Address | [address] | | | [place] [address] | + + + | Home Phone [...] Team Providers + +------+ + | Care Crayon [place] Name | Role | Phone | + +------+ + | Juan Cherry DO | PCP | | + +------+ + Encounter Details +--------+ + + + + | Date | Type | Department | Care Team | Description | +--------+ + + + + | 11/06/ | Hospital | [facility] | Juan Cherry, | Pituitary mass (HCC) | | 2014 | Encounter | MED CTR LABORATORY | DO [address] [facility] | | | | | [address] [place] | [place], [place] | | | | | [place], [place] | [address] | | | | | [address] | [phone] | | | | | [phone] | | | | | | | [...] | | | | | | | [facility]. | | | | [...] [place] | | | | | | [address] | | | | | | | | +--------+---------+ + + + | 11/24/ | Office | Cardiology | [place], | | | 2020 | Visit | | SINDHU Erickson [address] | | | | | | [place], | | | | | | [place] [address] | | | | | | [phone] | | | | | | | [...] 24HR | e | 11:00 AM | ([facility]) | procedure are in the | | [...] [place] | | | | | | [address] | | | | + + + [...] | Cortisol, | 8.77Comment: Reference | ug/g INSPECTOR FUEL HOSE | REFERENCE | | | Urine, | [...] | | | | than 32 ug/g creative producer | | | | + + + [...] | | | this test in the [facility] | | | | | | Laboratory Test | | | | | | Directory(Tego).T | | | | | | est developed and | | | | | | characteristics | | | | | | determined by [facility] | | | | | | Laboratories.See | | | | | | Compliance Statement B: | | | | | | Tego/CSTesting | | | | | | Performed: [facility], [address] | | | | | | [address], [place] | | | | | | [id number] Performed: | | | | | | [facility], [address], | | | | | | [place] [address] | | | | + + + + + + + + | Specimen | + + | Urine specimen | | (specimen) | + + + + + + + | Performing | Address | City/State/Zipcode | Phone Number | | Organization | | | | + + + + + | [facility] | 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
--- OUTSIDE RECORDS SUMMARY | ~2019-02-28 | XMS | Encounter Summary ---
Demographics + + + | Address | [address] | | | [place] [address] | + + + | Home Phone [...] Providers + +------+ + | Care Cloth Framer Name | Role | Phone | [...] + + | 11/22/ | Emergency | [facility] | Bsihop [place], | Acute post-operative | | 2016 | | MED CTR EMERGENCY | [place] [address] | pain (Primary Dx); | | | | CENTER [address] [place] | [place] | Bladder pain | | | | [place] | [address] | | | | | [address] | | | | | | [phone] | | | +--------+ + + + [...] sent through Care Everywhere.PAIN MANAGEMENT AFTER SURGERY (KOREAN)documented in this encounter Medications at Time of [...] | 0 | 10/13/19 | | | Epwrqsrhab-ZNJQ-Bvau | mouth as needed. | | | 16 | 7 | | -Cod [id number] MG | | | | | | [...] [place] | | | | | | [address] | | | | | | | | +--------+---------+ + + + | 11/24/ | Office | Cardiology | [place] | | | 2019 | Visit | | SINDHU Erickson [address] | | | | | | [place], | | | | | | [place] [address] | | | | | | [phone] | | | | | | | [...] | | | | | | Starting [facility] 11/23/15 at 1927 | | | | | | + + + + +------+------+ +---+---+ | | | +---+---+ documented in this encounter
--- OUTSIDE RECORDS SUMMARY | ~2019-02-28 | XMS | Encounter Summary ---
Demographics + + + | Address | [address] | | | [place] [address] | + + + | Home Phone [...] + +------+ + | Care Director Of Enterprise Strategy Name | Role | Phone | + +------+ + | Juan Cherry DO | PCP | | + +------+ + Encounter Details +--------+ + + + + | Date | Type | Department | Care Team | Description | +--------+ + + + + | 09/09/ | Hospital | [facility] | Conversion | Pain | | 2015 | Encounter | CONVERSION [address] | Transaction, | | | | | [address] | Provider Unknown | | | | | [place], [place] | [phone] | | | | | [address] | | | | | | [phone] | | | +--------+ + + + [...] | | | | | [facility]. | | | | | [...] | | | | | ([facility]) | | | | | | [...] [place] | | | | | | [address] | | | | | | | | +--------+---------+ + + + | 11/24/ | Office | Cardiology | [place], | | | 2019 | Visit | | SINDHU Erickson [address] | | | | | | [place], | | | | | | [place] [address] | | | | | | [phone] | | | | | | | [...]
--- OUTSIDE RECORDS SUMMARY | ~2019-02-28 | XMS | Encounter Summary ---
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 She has worked with a cable installation technician to correct her leaks. He has given [...] week, sooner prn. Thirty minutes were spent qttr-fh-effu, with the majority of time spent in counseling. Maxim Delgado PA-C cc: Juan Cherry DO Ced Hailee M - 2012 10:16 AM PST 03/06/12 [address] Depression Inventory-II Depression Score 43 Insomnia Severity Index Insomnia Severity Index 22 [place] Sleepiness Scale Sitting and reading 3 Watching [...] [place] | | | | | | [address] | | | | | | | | +--------+---------+ + + + | 11/24/ | Office | Cardiology | [place], | | | 2020 | Visit | | SINDHU Erickson [address] | | | | | | [place], | | | | | | [place] [address] | | | | | | [phone] | | | | | | | | +--------+---------+ + + + documented as of this encounter Visit Diagnoses + + | Diagnosis | + + | GARRY on CPAP - Primary Obstructive sleep apnea (adult) (pediatric) | + + | Organic insomnia, unspecified | + + documented in this encounter"
--- OUTSIDE RECORDS SUMMARY | ~2019-02-28 | XMS | Encounter Summary ---
Demographics + + + | Address | [address] | | | [place] [address] | + + + | Home Phone [...] Team Providers + +------+ + | Care Grocery Specialist Name | Role | Phone | [...] | | [place] | [facility]OM [facility] | | | | | [address] | [place] [address] | | | | | [phone] | [phone] | | | | | | | [...] [place] | | | | | | [address] | | | | | | | | +--------+---------+ + + + | 11/24/ | Office | Cardiology | [place], | | | 2019 | Visit | | SINDHU Erickson [address] | | | | | | [place], | | | | | | [place] [address] | | | | | | [phone] | | | | | | | | +--------+---------+ + + + documented as of this encounter Visit Diagnoses Not on filedocumented in this encounter"
--- OUTSIDE RECORDS SUMMARY | ~2019-02-28 | XMS | Encounter Summary ---
Demographics + + + | Address | [address] | | | [place] [address] | + + + | Home Phone [...] Providers + +------+ + | Care Counter Top Maker Name | Role | Phone | [...] [address] | | | | | [place], | [place] | | | | | [place] [address] | [address] | | | | | [phone] | | | +--------+--------+ + + + [...] [place] | | | | | | [address] | | | | | | | | +--------+---------+ + + + | 11/24/ | Office | Cardiology | [place], | | | 2019 | Visit | | SINDHU Erickson [address] | | | | | | [place], | | | | | | [place] [address] | | | | | | [phone] | | | | | | | | +--------+---------+ + + + documented as of this encounter Visit Diagnoses Not on filedocumented in this encounter"
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
--- OUTSIDE RECORDS SUMMARY | ~2019-02-28 | XMS | Encounter Summary ---
Demographics + + + | Address | [address] | | | [place] [address] | + + + | Home Phone [...] Team Providers + +------+ + | Care Mark Up Designer Name | Role | Phone | + [...] | RN | | | | | [place], | | | | | | [place] [address] | | | | | | [phone] | | | +--------+ + + + [...] | | | | Jose R [place] | | | | | | [address] | | | | | | | | +--------+---------+ + + + | 11/24/ | Office | Cardiology | [place], | | | 2019 | Visit | | SINDHU Erickson [address] | | | | | | [place], | | | | | | [place] [address] | | | | | | [phone] | | | | | | | | +--------+---------+ + + + documented as of this encounter Visit Diagnoses Not on filedocumented in this encounter"
--- OUTSIDE RECORDS SUMMARY | ~2019-02-28 | XMS | Encounter Summary ---
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 female. HPI last office visit was: 08/22/2011 date of polysomnography: 10/15/2011 AHI: 47.1 RDI: 53.4 Machine type: [employer] with full face mask obtained from: [facility] [...] CPAP indefinitely. She has worked with a telecommunication tower technician to correct her leaks. He has [...] week, sooner prn. Thirty minutes were spent oqne-tv-kckn, with the majority of time spent in counseling. Maxim Delgado PA-C cc: Juan Cherry DO Ced Hailee M - 2012 10:16 AM PST 03/06/12 [address] Depression Inventory-II Depression Score 43 Insomnia Severity Index Insomnia Severity Index 22 [place] Sleepiness Scale Sitting and reading 3 Watching [...] [place] | | | | | | [address] | | | | | | | | +--------+---------+ + + + | 11/24/ | Office | Cardiology | [place], | | | 2020 | Visit | | SINDHU Erickson [address] | | | | | | [place], | | | | | | [place] [address] | | | | | | [phone] | | | | | | | | +--------+---------+ + + + documented as of this encounter Visit Diagnoses + + | Diagnosis | + + | GARRY on CPAP - Primary Obstructive sleep apnea (adult) (pediatric) | + + | Organic insomnia, unspecified | + + documented in this encounter"
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
--- OUTSIDE RECORDS SUMMARY | ~2019-02-28 | XMS | Encounter Summary ---
Demographics + + + | Address | [address] | | | [place] [address] | + + + | Home Phone [...] Team Providers + +------+ + | Care Vp Packaging Name | Role | Phone | [...] + + | 07/27/ | Office | [facility] | Brian Miranda | Sprain of chest | | 2013 | Visit | [facility] | MD [address] | abigail garcia | | | | ADRIANA [address] | [facility] | encounter (Primary | | | | [address] [facility] | [place] [address] | Dx); Place of | | | | [place], [place] | [phone] | occurrence, | | | | [address] | | industrial places | | | | [phone] | | and premises | +--------+---------+ + [...] Date of injury: 04/05/13 Claim number: [id number] Chief complaint: chest wall sprain, closing evaluation [...] over a month ago from the claims adjuster supervisor for the department of labors and in [place] requesting information regarding claims management and patient's condition, that form is completed today and this does represent a closing evaluation on this individual. No rose nges in background medical information of. Past medical history, medications, allergies reviewed Review of systems: As per HPI Objective: Vital signs as noted, nursing notes reviewed. Csxzmrr-rctb-ijdqsgpht, well-nourished, in no apparent distress, pleasant cooperative. [...] [place] | | | | | | [id number] | | | | | | | | +--------+---------+ + + + | 11/24/ | Office | Cardiology | [place], | | | 2019 | Visit | | SINDHU Erickson [address] | | | | | | [place] | | | | | | [place] [address] | | | | | | [phone] | | | | | | | | +--------+---------+ + + + documented as of this encounter Visit Diagnoses + + | Diagnosis | + + | Sprain of chest wall, subsequent encounter - Primary | + + | Place of occurrence, industrial places and premises | + + documented in this encounter
--- OUTSIDE RECORDS SUMMARY | ~2019-02-28 | XMS | Encounter Summary ---
Demographics + + + | Address | [address] | | | [place] [address] | + + + | Home Phone [...] Team Providers + +------+ + | Care Behaviorist Name | Role | Phone | + [...] | | | | not | | [place] [address] | | | | | elsewhere | | Phone: | | | | | classified | | [phone] | | | | | Procedures | | Fax: | | | | | OFFICE VISIT | | [phone] | | | | | REGULAR | | | +--------+--------+ + + + + Encounter Details +--------+---------+ + + + | Date | Type | Department | Care Team | Description | +--------+---------+ + + + | 08/05/ | Office | [facility] | Kevin Sandoval, | Preventative health | | 2013 | Visit | PULMONARY [address] | MD [address] | care (Primary Dx); | | | | [place], | [place], [place] | Hypoxemia; Central | | | | [place] [address] | [address] | sleep apnea | | | | [phone] | | | +--------+---------+ + + + [...] rom the original. Pulmonary Follow Up 08/05/2013 [facility] Rosariorickey Malik is a 48 [...] [facility]) 10/28/2012 Overview: Managed by [facility] along with hypothyroidism Osteoarthritis Social History: She [...] d 99 months. Please send order to [facility] Disp: 1 each, Rfl: 0 Respiratory Therapy Supplies MISC, Change CPAP back to 11-14 cm H2O. All necessary supplies . No oxygen bleed in. Diagnosis Code(s)327.23. Length of Need: Lifetime. [facility] This is not a new order, just [...] | | | | | Jose R [facility] [place] | | | | | | [address] | | | | | | | | +--------+---------+ + + + | 11/24/ | Office | Cardiology | [place], | | | 2020 | Visit | | SINDHU Erickson [address] | | | | | | [place], | | | | | | [place] [address] | | | | | | [phone] | | | | | | | [...] Primary Routine general medical examination at a [facility] | | care facility | + + | Hypoxemia | + + | Central sleep apnea Primary central sleep apnea | + + documented in this encounter
--- OUTSIDE RECORDS SUMMARY | ~2019-02-28 | XMS | Encounter Summary ---
Demographics + + + | Address | [address] | | | [place] [address] | + + + | Home Phone [...] Providers + +------+ + | Care Special Education Tutor Name | Role | Phone | [...] Fall, | | | | [address] [place] | [address] [place] | initial encounter; | | 01/10/ | | [place] [address] | [place] [address] | Generalized | | 2018 | | [phone] | [phone] | weakness; Paroxysmal | | | | | | atrial tachycardia | | | | | Nohemi Gregory MD | ([facility]); Chronic | | | | | [address] | obstructive | | | | | [place], [place] | pulmonary disease, | | | | | [id number] | unspecified COPD | | | | | | type ([facility]); | | | | | | Gastroesophageal [...] Color, UA Straw Clarity, UA Clear Specific [place] 1.028 PH UA 6.0 Glucose, UA Negative [...] aka: DEL[place] Respiratory Therapy Supplies [facility] [place] CPAP back to 11-14 cm H2O. All necessary supplies. No oxygen bleed in. Diagnosis Co de(s)327.23. Length of Need: Lifetime. Please send order to [facility]. This i s not a new order, just a change in settings. Respiratory Therapy Supp[facility] Please provide patient with necessary CPAP supplies (she did not specify, okay to send ord er as appropriate) Diagnosis Code(s)327.23 . Length of Need 99 months. Please send order to [facility]. roflumilast 500 mcg tablet Take 1 [...] | | | | | [facility]. | | | | | | | [...] Malik : 1965: Age: 53 y.o. MedRec: [id number] PCP: Yong Cherry DO Admission date: 2018 [...] Anterolateral/lateral leads Confirmed by RAFA WELLS MD ([id number]) on 01/09/2018 6:50:03 AM POC Glucose Collection [...] PH UA 6.0 5.0 - 8.0 Specific [place] 1.028 1.001 - 1.030 PROTEIN UA Negative [...] nodularity. No mediastinal lymphade nopathy, within the cucwa-vk-iwjk. Stable 7 mm nodule in the right [...] [place] | | | | | | [address] | | | | | | | | +--------+---------+ + + + | 11/24/ | Office | Cardiology | [place], | | | 2019 | Visit | | SINDHU Erickson [address] | | | | | | [place], | | | | | | [place] [address] | | | | | | [phone] | | | | | | | [...] W?MRN: | | | | | | [id number] | | | [id number] | | | his | | | [...] | | | GENE | | | AMYAA | | | 2 | | | [...] | | | [place] | | | [facility], | | | [place] - | [...] | | | | | | n [place] | | | | | + +---------+ [...] [address] | [place] | [phone] | | [facility] | | [address] | | | - LABORATORY | | [...] + | [address] | [address] | [place] | [phone] | | [facility] | | [address] | | | - LABORATORY | | [...] [address] | [place] | [phone] | | [facility] | | [address] | | | - LABORATORY | | [...] + | [facility] | [address] | [place] | [phone] | | [facility] | | [address] | | | - LABORATORY | | [...] [address] | [place] | [phone] | | [facility] | | [address] | | | - LABORATORY | | [...] [address] | [place] | [phone] | | [facility] | | [address] | | | - LABORATORY | | [...] [address] | [place] | [phone] | | [facility] | | [address] | | | - LABORATORY | | [...] + + | Performed at: 01 - [facility] [address] [place] [address], | REFERENCE LAB | | [facility] [place] [id number] Drive[address] Attendant: Naomie Evans, Phone: | ARACELIS - MARCELLE | | [phone] | | + + + + + + + + | Performing | Address | City/State/Zipcode | Phone Number | | Organization | | | | + + + + + | REFERENCE LAB | [address] | [place] [address] | [phone] | | [facility] | Drive [...] | | | | | | [employer] | | | | | [...] [address] | [place] | [phone] | | [facility] | | [address] | | | - LABORATORY | | [...] [address] | [place] | [phone] | | [facility] | | [address] | | | - LABORATORY | | [...] [address] | [place] | [phone] | | [facility] | | [address] | | | - LABORATORY | | [...] (L) | 7 - 18 mg/dL | [facility] | | | | | | [facility] | | | | | | MEDICAL | | | | | | CENTER - | | | | | | LABORATORY | | + + + + + + | Creatinine | 0.61 | 0.60 - 1.30 | [facility] | | | | | mg/dL | [facility] | | | | | | MEDICAL | | | | | | CENTER - | | | | | | LABORATORY | | + + + + + + | eGFR if not | >60Comment: GLOMERULAR | >=60 | [facility] | | | | FILTRATION | mL/min/1.73m2 | [facility] | | | SWAZI | RATE,ESTIMATED | | MEDICAL | | | | mL/min/1.38b8Cunh than | | CENTER - | | [...] [address] | [place] | [phone] | | [facility] | | [address] | | | - LABORATORY | | [...] + | [address] | [address] | [place] | [phone] | | [facility] | | [address] | | | - LABORATORY | | [...] | | | | | | [employer] | | | | | [...] + | [facility] | [address] | [place] | [phone] | | [facility] | | [address] | | | - LABORATORY | | [...] [address] | [place] | [phone] | | [facility] | | [address] | | | - LABORATORY | | [...] [address] | [place] | [phone] | | [facility] | | [address] | | | - LABORATORY | | [...] | | [facility] | | | [facility] | | | - LABORATORY | + + + + + + + + | Performing | Address | City/State/Zipcode | Phone Number | | Organization | | | | + + + + + | [facility] | [address] | [place] | [phone] | | [facility] | | [address] | | | - LABORATORY | | [...] + | [facility] | [address] | [place] | [phone] | | [facility] | | [address] | | | - LABORATORY | | [...] | | | | | | [employer] | | | | | [...] + | [facility] | [address] | [place] | [phone] | | [facility] | | [address] | | | - LABORATORY | | [...] ST. | [address] | [place] | [phone] | | [facility] | | [address] | | | - LABORATORY | | [...] ST. | [address] | [place] | [phone] | | [facility] | | [address] | | | - LABORATORY | | [...] [address] | [place] | [phone] | | [facility] | | [address] | | | - LABORATORY | | [...] [address] | [place] | [phone] | | [facility] | | [address] | | | - LABORATORY | | [...] [address] | [place] | [phone] | | [facility] | | [address] | | | - LABORATORY | | [...] - 1.030 | [facility] | | | [place] | | | [facility] | | [...] ST. | [address] | [place], [place] | [phone] | | [facility] | | [address] | | | - LABORATORY | | [...] mediastinal | | | lymphadenopathy, within the ofwce-cw-rpbk. Stable 7 mm nodule in | | [...] vocal cord nodularity. Nomediastinal lymphadenopathy, within the mqcxy-vo-ecaa. Stable | | 7 mm nodule inthe right apex. Bullous changes in the left apex. Small blebs in the | | rightapex. No suspicious lytic or blastic bone lesions. Evidence of a healedsternal | | fracture. There appears to be fusion of the articular pillars at thelevel | | [id number] -No CT evidence for an acute intracranial [...] nodularity. No | |mediastinal lymphadenopathy, within the houdj-zv-jila. Stable 7 mm nodule in | |the [...] + + | Performing | Address | City/State/[facility] | Phone Number | | Organization [...] [address] | [place] | [phone] | | [facility] | | [address] | | | - LABORATORY | | [...] [address] | [place] | [phone] | | [facility] | | [address] | | | - LABORATORY | | [...] + | [facility] | [address] | [place] | [phone] | | [facility] | | [address] | | | - LABORATORY | | [...] [address] | [place] | [phone] | | [facility] | | [address] | | | - LABORATORY | | [...] | | | | | | [employer] | | | | | [...] ST. | [address] | [place], [place] | [phone] | | [facility] | | [address] | | | - LABORATORY | | [...] | | | FILTRATION | mL/min/1.73m2 | [facility] | | | SWAZI | RATE,ESTIMATED | | MEDICAL | | | | mL/min/1.06j2Xuxw than | | CENTER - | | [...] | | | | | mg/dL | [facility] | | | | | | MEDICAL [...] [address] | [place] | [phone] | | [facility] | | [address] | | | - LABORATORY | | [...] [address] | [place] | [phone] | | [facility] | | [address] | | | - LABORATORY | | [...] + | [address] | [address] | [place], [place] | [phone] | | [facility] | | [address] | | | - LABORATORY | | [...] | | | | RAFA WELLS MD ([id number]) | | | | | | on [...] (chronic) without hematuria | + + | Obstructive sleep apnea [...] Shortness of Breath, | | | Starting [facility] 01/08/18 at 1705 | | + +---+ [...] | | dose on [facility] 01/08/18 at 1500 | | | | [...] | | | | First dose on [facility] 01/08/18 at | | | | | [...] | | | | | Anxiety, Starting [facility] 01/08/18 at | | | | | [...] | | | | CT Scan, Starting [facility] 01/08/18 | | | | | | [...] | | | | last modification) on [facility] | | | | | [...] | | | | | dose on [facility] 01/08/18 at 1450 | | AM PST [...] | | | | First dose on [facility] 01/08/18 at | | PM PST | [...] | | | | | | | Joe, [facility] 01/09/2018 15:38, , , | | | [...] | | | | | | Starting [facility] 01/08/18 at 1105, | | | | [...] | | | | | Pain, Starting 11/16/18 at | | AM PST | | [...] dose on [facility] 01/08/18 at | | AM PST | [...]
--- OUTSIDE RECORDS SUMMARY | ~2019-02-28 | XMS | Encounter Summary ---
Demographics + + + | Address | [address] | | | [place] [address] | + + + | Home Phone [...] Team Providers + +------+ + | Care Flight Attendant/Inflight Supervisor Name | Role | Phone | [...] + | 09/04/ | Off-Site | [facility] | [place], | Paroxysmal atrial | | 2016 | Visit | CARDIOLOGY [address] | SINDHU Erickson [address] | tachycardia (HCC) | | | | [place], | [place], | (Primary Dx); Chest | | | | [place] [address] | [place] [address] | pain, unspecified | | | | [phone] | [phone] | type | | | | | [...] this da rigoberto Respiratory Therapy Supplies [facility] Please provide patient with necessary CPAP supplies ( she did not specify, okay to send order as appropriate) Diagnosis Code(s)327.23 . Length of Need 99 months. Please send order to [facility]. 1 each 0 Respiratory Therapy Supplies [facility] Change CPAP back to 11-14 cm H2O. All necessary suppl ies. No oxygen bleed in. Diagnosis Code(s)327.23. Length of Need: Lifetime. Please send orde r to [facility]. This is not a [...] reviewed during visit today primarily from [facility]: LIPID No results found for: CHOL, TRIG, [...] was seen at the ED of [facility] 3 weeks ago and again 1 week [...] She is in a class II of [place] [employer] functional class. There is n [...] and ventricular function don e at the [facility]. LVEF 78%. C. Holter Monitor 08/16/13 Underlying [...] this chart may have been created with [employer] voice recognition software. Occasi onal wrong-word or [...] | | | | | | [place] [address] | | | | | | [phone] | | | | | | | [...]
--- OUTSIDE RECORDS SUMMARY | ~2019-02-28 | XMS | Encounter Summary ---
Demographics + + + | Address | [address] | | | [place] [address] | + + + | Home Phone [...] Providers + +------+ + | Care Licensed Psychologist Name | Role | Phone | + +------+ + PCP | Unavailable | + +------+ + Encounter Details +--------+ + + + + | Date | Type | Department | Care Team | Description | +--------+ + + + + | 09/23/ | Hospital | [facility] | Nestor Martinez, | | | 2010 | Encounter | MED CTR EMERGENCY | [address] | | | | | CENTER [address] | [place], [place] | | | | | [place] | [address] | | | | | [address] | | | | | | [phone] | | | +--------+ + + + [...] [place] | | | | | | [address] | | | | | | | | +--------+---------+ + + + | 11/24/ | Office | Cardiology | [place], | | | 2019 | Visit | | SINDHU Erickson [address] | | | | | | [place], | | | | | | [place] [address] | | | | | | [phone] | | | | | | | [...] [address] | [place] | [phone] | | [facility] | | [address] | | | - LABORATORY | | | | + + + + + | [facility] | [address] | [place] | | | [facility] | | [address] | | | - LABORATORY | | | | + + + + + CBC with Differential (09/23/2010 12:53 PM PDT) + + + + + + | Component | Value | Ref Range | Performed | Pathologist | | | | | At | Signature | + + + + + + | WBC | 8.3 | 4.0 - 11.0 K/uL | [facility] | | | | | | [facility] | | | | | | MEDICAL | | | | | | CENTER - | | | | | | LABORATORY | | + + + + + + | RBC | 4.67 | 3.70 - 5.20 | [facility] | | | | | M/uL | [facility] | | | | [...] [address] | [place] | [phone] | | [facility] | | [address] | | | - LABORATORY | | | | + + + + + | [facility] | [address] [facility] | [place] | | | [facility] | | [address] | | | - LABORATORY | | | | + + + + + CT Abdomen Pelvis w Contrast (09/23/2010 11:33 AM PDT) + + | Specimen | + + | | + + + + + | Narrative | Performed At | + + + | [facility] Diagnostic Imaging Department | [place] | | [address] [facility], [place] | [facility] | | ABDOMEN AND PELVIS CT WITH [...] Transcribed | | | Date/Time: 09/24/2010 13:01 Synchronizer: PEREZ | | | <Electronically Signed by Elías Cardoso MD> 09/24/10 1939 | | + + + + + | Procedure Note | + + | Reed, Rad Conversion - 04/02/2013 3:30 PM [facility] | | Diagnostic Imaging Department [address] [facility] | | ABDOMEN AND PELVIS CT WITH [...] 09:10 | |Transcribed Date/Time: 09/24/2010 13:01 | |Synchronizer: | |<Electronically Signed by Elías Cardoso MD> 09/24/101938 | + + + +---------+ + + | Performing | Address | City/State/Zipcode | Phone Number | | Organization | | | | + +---------+ + + | [place] | | | | | [facility] | | | | + +---------+ + + documented in this encounter Visit Diagnoses Not on filedocumented in this encounter"
--- OUTSIDE RECORDS SUMMARY | ~2019-02-28 | XMS | Encounter Summary ---
Demographics + + + | Address | [address] | | | [place] [address] | + + + | Home Phone [...] 2013 | | [facility] EM[facility] | [place] [address] | exacerbation (HCC) | | | | [place] [address] | [facility] [place] | (Primary Dx) | | | | [place], [place] | [place] [address] | | | | | [address] | [phone] | | | | | [phone] | | | +--------+ + + + [...] | | | | | | | [facility]. | | | | | [...] [place] | | | | | | [address] | | | | | | | | +--------+---------+ + + + | 11/24/ | Office | Cardiology | [place], | | | 2019 | Visit | | SINDHU Erickson [address] | | | | | | [place], | | | | | | [place] [address] | | | | | | [phone] | | | | | | | [...] + | MISCELLANEOUS LAB | | | [phone] | + +---------+ + + | MISCELANIOUS LAB | | | [phone] | + +---------+ + + ED INFORMATION EXCHANGE (08/13/2013 8:38 PM PDT) + + | Specimen | + + | | + + + + + | Narrative | Performed At | + + + | VISIT TRACKING (3 MO.) Visit Date Location | [facility] | | Type Diagnoses | | | -------- | | | ---- 08/13/2013 20:37 [place] | | | [facility] Emergency COPD Exasperation; | | | 07/18/2013 12:06 [facility] | | | Emergency Arm Laceration; | | | | | | Open wound of upper arm, without mention of complication; | | | | | | cut on Lft arm; 07/14/2013 00:15 | | | [facility] Emergency Shortness of | | | Breath; | | | Chronic obstructive | | | asthma with (acute) exacerbation; 06/19/2013 21:06 [facility] | | | [facility] Emergency Obstructive chronic | | | bronchitis with (acute) exacerbation; | | | | | | Shortness of Breath; | | | diff | | | breathing; 06/19/2013 11:03 [facility] | | | Emergency COPD exasperation; 05/23/2013 19:52 | | | [facility] Emergency Obstructive | | | chronic bronchitis with (acute) exacerbation; | | | | | | Obstructive chronic bronchitis with (acute) | | | exacerbation; | | | sob; | | | | | | Shortness of Breath; VISIT COUNT (1 | | | YR.) Visits Medicaid NE Dx Location ------ | | | --------- 12 0 | | | [facility] 12 0 | | | Total Note: Visits indicate total known visits. Medicaid | | | NE Dx are the number of primary diagnoses on the [facility]'s non-emergent dx | | | [...]
--- OUTSIDE RECORDS SUMMARY | ~2019-02-28 | XMS | Encounter Summary ---
Demographics + + + | Address | [address] | | | [place] [address] | + + + | Home Phone [...] Team Providers + +------+ + | Care Publications Production Supervisor Name | Role | Phone | + +------+ + PCP | Unavailable | + +------+ + Encounter Details +--------+ + + + + | Date | Type | Department | Care Team | Description | +--------+ + + + + | 12/28/ | Hospital | [facility] | Ozzy Delcid, | | | 2009 - | Encounter | MED CTR OP REHAB | [address] | | | | | [address] [place] [place] | [place] | | | 01/23/ | | [place] [address] | [address] | | | 2009 | | [phone] | | | +--------+ + + + [...] [place] | | | | | | [address] | | | | | | | | +--------+---------+ + + + | 11/24/ | Office | Cardiology | [place], | | | 2019 | Visit | | SINDHU Erickson [address] | | | | | | [place], | | | | | | [place] [address] | | | | | | [phone] | | | | | | | | +--------+---------+ + + + documented as of this encounter Visit Diagnoses Not on filedocumented in this encounter"
--- OUTSIDE RECORDS SUMMARY | ~2019-02-28 | XMS | Encounter Summary ---
Demographics + + + | Address | [address] | | | [place] [address] | + + + | Home Phone [...] Providers + +------+ + | Care Account Developer Name | Role | Phone | [...] | | | | [facility] | [address] | [address] | | | | | EXERCISE | [place], | [place] | | | | | | [place] [address] | [place], [place] | | | | | | Phone: | [address] | | | | | | [phone] | Phone: | | | | | | Fax: | [phone] | | | | | | [phone] | Fax: | | | | | | | [phone] | +--------+--------+ + + + + Encounter Details +--------+---------+ + + + | Date | Type | Department | Care Team | Description | +--------+---------+ + + + | 07/23/ | Office | [facility] | Jared Mcdonough, | Chronic obstructive | | 2017 | Visit | MED CTR CARDIAC | MD [address] King | pulmonary disease, | | | | REHABILITATION [address] [place], | unspecified COPD | | | | [place] | [place] [address] | type (HCC) (Primary | | | | [place] [address] | [phone] | Dx); Mild persistent | | | | [phone] | | asthma without | | | [...] [place] | | | | | | [address] | | | | | | | | +--------+---------+ + + + | 11/24/ | Office | Cardiology | [place], | | | 2019 | Visit | | SINDHU Erickson [address] | | | | | | [place], | | | | | | [place] [address] | | | | | | [phone] | | | | | | | [...]
--- OUTSIDE RECORDS SUMMARY | ~2019-02-28 | XMS | Encounter Summary ---
Demographics + + + | Address | [address] | | | [place] [address] | + + + | Home Phone [...] Team Providers + +------+ + | Care Police Patrol Lieutenant Name | Role | Phone | [...] [address] | | | | | [place] | [facility] | | | | | [address] | [place] [address] | | | | | [phone] | [phone] | | | | | | | [...] [place] | | | | | | [address] | | | | | | | | +--------+---------+ + + + | 11/24/ | Office | Cardiology | [place], | | | 2019 | Visit | | SINDHU Erickson [address] | | | | | | [place], | | | | | | [place] [address] | | | | | | [phone] | | | | | | | | +--------+---------+ + + + documented as of this encounter Visit Diagnoses Not on filedocumented in this encounter"
--- OUTSIDE RECORDS SUMMARY | ~2019-02-28 | XMS | Encounter Summary ---
Demographics + + + | Address | [address] | | | [place] [address] | + + + | Home Phone [...] Team Providers + +------+ + | Care Body Mechanic Apprentice Name | Role | Phone | [...] + | 10/07/ | Telephone | [facility] | Sandoval Kevin, | Other | | 2014 | | PULMONARY [address] | MD [address] | | | | | [place], | [place], [place] | | | | | [place] [address] | [address] | | | | | [phone] | | | +--------+ + + + [...] [place] | | | | | | [address] | | | | | | | | +--------+---------+ + + + | 11/24/ | Office | Cardiology | [place], | | | 2019 | Visit | | SINDHU Erickson [address] | | | | | | [place] | | | | | | [place] [address] | | | | | | [phone] | | | | | | | | +--------+---------+ + + + documented as of this encounter Visit Diagnoses Not on filedocumented in this encounter"
--- OUTSIDE RECORDS SUMMARY | ~2019-02-28 | XMS | Encounter Summary ---
Demographics + + + | Address | [address] | | | [place] [address] | + + + | Home Phone [...] Team Providers + +------+ + | Care Post Anesthesia Room Nurse Name | Role | Phone | [...] + | 09/08/ | Office | [facility] | Kevin Sandoval, | COPD (chronic | | 2015 | Visit | PULMONARY [address] | MD [address] | obstructive | | | | [place], | [place], [place] | pulmonary disease) | | | | [place] [address] | [address] | ([facility]) (Primary Dx); | | | | [phone] | | GARRY (obstructive | | | [...] your ankles gets worse Dizziness or weakness [id number] [employer]. [address] [place] [address]. All righ ts reserved. This information is [...] duct (pouch) (HCC) 10/28/2012 Overview: Managed by [facility] along with hypothyroidism Osteoarthritis Tachycardia Asthma Emphysema [...] d 99 months. Please send order to [facility] Disp: 1 each, Rfl: 0 Respiratory Therapy Supplies MISC, Change CPAP back to 11-14 cm H2O. All necessary supplies . No oxygen bleed in. Diagnosis Code(s)327.23. Length of Need: Lifetime. Please send order t [facility]. This is not a new [...] | | | | [address] [place] | | | | | | [address] | | | | | | | | +--------+---------+ + + + | 10/01/ | Office | Cardiology | [place], | | | 2019 | Visit | | SINDHU Erickson [address] | | | | | | [place], | | | | | | [place] [address] | | | | | | [phone] | | | | | | | [...]
--- OUTSIDE RECORDS SUMMARY | ~2019-02-28 | XMS | Encounter Summary ---
Demographics + + + | Address | [address] | | | [place] [address] | + + + | Home Phone [...] Team Providers + +------+ + | Care Hydrator Operator Name | Role | Phone | [...] | with brief | [address] | | | | n | loss of | [address] | [place], | | | | | consciousnes | [place], | [place] [address] | | | | | s | [place] [address] | Phone: | | | | | Post-concuss | Phone: | [phone] | | | | | ion vertigo | [phone] | Fax: | | | | | [phone] | Fax: | [phone] | | | | | (ICD-10-CM) | [phone] | | | | | | - [...] + + | 06/18/ | Office | [facility] | Aaron Rodriguez, | Dizziness (Primary | | 2017 | Visit | MED CTR THERAPY PT | MD [address] | Dx); Impaired | | | | OP [address] | [place] | mobility and | | | | [place] | [id number] | activities of daily | | | | [address] | | living; Concussion | | | | [phone] | Lakeshia Cleary, PT | with brief (less | | | | | [address] | than one hour) loss | | | | | [place] | of consciousness; | | | | | [address] | Intractable acute | | | | [...] might be different from t he original. [facility] THERAPY PT OP [address] [place] [address] Physical Therapy Daily Treatment Note Date: 06/18/2016 [...] | 2019 | Visit | | [address] | | | | | | [place] R E [place] | | | | | | [address] | | | | | | | | +--------+---------+ + + + | 11/24/ | Office | Cardiology | [place], | | | 2019 | Visit | | SINDHU Erickson [address] | | | | | | [place], | | | | | | [place] [address] | | | | | | [phone] | | | | | | | [...]
--- OUTSIDE RECORDS SUMMARY | ~2019-02-28 | XMS | Encounter Summary ---
Demographics + + + | Address | [address] | | | [place] [address] | + + + | Home Phone [...] Providers + +------+ + | Care Health Services Manager Name | Role | Phone | [...] [address] | | | | | [place], | [place] | | | | | [place] [address] | [address] | | | | | [phone] | | | +--------+--------+ + + + [...] [place] | | | | | | [address] | | | | | | | | +--------+---------+ + + + | 11/24/ | Office | Cardiology | [place], | | | 2019 | Visit | | SINDHU Erickson [address] | | | | | | [place] | | | | | | [place] [address] | | | | | | [phone] | | | | | | | | +--------+---------+ + + + documented as of this encounter Visit Diagnoses Not on filedocumented in this encounter"
--- OUTSIDE RECORDS SUMMARY | ~2019-02-28 | XMS | Encounter Summary ---
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 Do not take your medicine more often than directed. Talk to your student assistance counselor regarding the use of this medicine in [...] should report to your doctor or health complex care nurse as soon as p ossible: allergic reactions [...] attention (report to your doctor or health complex care nurse if they continue or are bothersome): dizziness drowsiness dry mouth facial flushing muscle pain or cramps nausea, vomiting weak or tired This list may not describe all possible side effects. Call your doctor for medical advice a bout side effects. You may report side effects to FDA at 2-554-YOT-3870. Where should I keep my medicine? Keep [...] from the original. Shashi Segovia MD [address] [facility], [address] [place] [address] Neurology Outpatient ProgressNote Patient ID: Ms. Malik is a 48 y.o. female with a pertinent history of COPD, depression, COPD, GARRY on PAP, hypothyroidism, possible adrenal insufficiency, and pituitary lesion, following up in n eurology clinic for increased headache frequency. Ms. Malik was last seen 10/20/13 and [facility] and was switched from [...] In review of prior lab work at [facility], the IGF-I yolanda steve has fluctuated in and out of the normal range. Ms. Malki has not yet undergone repeat MR Thalia. [...] ([facility]) 10/28/2012 Overview: Managed by [facility] along with hypothyroidism Osteoarthritis Tachycardia Asthma Emphysema ([facility]) Migraine Current Medications: Current Medications [...] Take by mouth Daily. Respiratory Therapy Supplies [facility] Incentive spirometer. Please provide instructions in use . Dx: 848.8 MADELEINE: 3 months Respiratory Therapy Supplies [facility] Please provide patient with necessary CPAP supplies (she did not specify, okay to send order as appropriate) Diagnosis Code(s)327.23 . Length of Nee d 99 months. Please send order to [facility]. Respiratory Therapy Supplies [facility] Change CPAP back to 11-14 cm H2O. All necessary supplies . No oxygen bleed in. Diagnosis Code(s)327.23. Length of Need: Lifetime. Please send order t [facility]. This is not a new [...] Testing Performed: [facility], [address], [place] [address] Creatinine, Urine mg/dL 48 Creatinine, 24H Ur 700 - 1600 mg/d 768 Cortisol, Urine, Free, ug/gCre ug/g OUTBOARD MOTOR ASSEMBLER 8.77 Comments: Reference Interval: Cortisol ug/g crtFemalePrepubertal: Less than 25 ug/g crt18 years and o lder: Less than 24 ug/g crtPregnancy: Less than 59 ug/g crtMalePrepubertal: Less than 25 ug/ g crt18 years and older: Less than 32 ug/g sport psychologist Cortisol, Urine, Free, ug/L ug/L 4.21 Cortisol, Urine, Free, ug/day <46 ug/d 6.7 Comments: Reference range: <=45.0 Assessment: Ms. Malik is a 48 y.o. female with a history of COPD, depression, COPD, GARRY on PAP, hypoth yroidism, possible adrenal insufficiency, and pituitary lesion, following up in neurology [facility] for increased headache frequency. 1) Headaches: increased [...] from Imitrex - Prescription sent to local [place] [facility] - Discussed medication overuse headache. If patient needs more than 2 doses of Maxalt per w [place], we will consider starting prophylaxis. 2) Pituitary [...] [place] | | | | | | [address] | | | | | | | | +--------+---------+ + + + | 11/24/ | Office | Cardiology | [place], | | | 2019 | Visit | | SINDHU Erickson [address] | | | | | | [place], | | | | | | [place] [address] | | | | | | [phone] | | | | | | | [...]
--- OUTSIDE RECORDS SUMMARY | ~2019-02-28 | XMS | Encounter Summary ---
Demographics + + + | Address | [address] | | | [place] [address] | + + + | Home Phone [...] Team Providers + +------+ + | Care Drawing Supervisor Name | Role | Phone | [...] & | | | | [address] | [place] | Bladder Biopsy | | | | [place], [place] | [place] [address] | | | | | [address] | [phone] | | | | | [phone] | | | +--------+---------+ + + + [...] (the anesthesiologist will discuss these with you) [phone] [employer]. [address] [place] [address]. All righ ts reserved. This information is [...] | | | | | | | [facility]. | | | | [...] | 0 | 10/13/19 | | | Skaqzpjsri-RDUQ-Rxop | mouth as needed. | | | 16 | 7 | | -Cod [id number] MG | | | | | | [...] | | 2019 | Visit | | [address] | | | | | | [place] | | | | | | [address] | | | | | | | | +--------+---------+ + + + | 11/24/ | Office | Cardiology | [place], | | | 2019 | Visit | | SINDHU Erickson [address] | | | | | | [place], | | | | | | [place] [address] | | | | | | [phone] | | | | | | | [...] ST. | [address] | [place], [place] | [phone] | | [facility] | | [address] | | | - LABORATORY | | [...] mild chronic mucosal | | | inflammation. JVR:[facility]:C[facility]NR GROSS DESCRIPTION: The specimen is | | | received in three parts. A. The specimen is labeled and | | | designated "LykensRosarionn, posterior bladder wall". Received | | | in formalin is one pink colored tissue fragment, it measures 0.25 x | | | 0.4 cm. all into (A1). B. The specimen is labeled and designated | | | "Lykens, Rosario Rea, right bladder wall". Received in formalin is | | | one pink colored tissue fragment, 0.3 x 0.3 cm, all into (B1). C. | | | The specimen is labeled and designated "Lykens, Rosario Rea, left | | | bladder wall". Received in formalin is one pink colored tissue | | | fragment, it measures 0.3 x 0.3 cm, all into (C1). yt:CLR:[facility] | | | MICROSCOPIC EXAMINATION: Histologic sections of all submitted blocks | | | are examined by light microscopy. These findings, together with the | | | gross examination, support the pathologic diagnosis. PERFORMING | | | LABORATORY: Tissue processing and slide preparation were performed by | | | [facility], [address] [place] [address], [address], [place] [address] | | | (Electrical Test Engineer: Kale Estrella M.D.; CLIA#: [id number]). | | | Professional interpretation was performed by [facility], | | | [facility], [address] | | | [place] [address] (Electrical Test Engineer: Kale Estrella M.D.; CLIA#: | | | [id number]). Diagnostician: Kale Estrella MD Pathologist | | [...] | | | | | | use Bingen 10/325 if ordered. If | | | [...]
--- OUTSIDE RECORDS SUMMARY | ~2019-02-28 | XMS | Encounter Summary ---
Demographics + + + | Address | [address] | | | [place] [address] | + + + | Home Phone [...] Providers + +------+ + | Care Senior Water Resources Engineer Name | Role | Phone | [...] | +--------+ + + + + | 06/25/ | Clinical | [facility] | Andriy Weber | Bladder pain | | 2018 | Support | [address] | [address] | (Primary Dx) | | | | [place], [place] | [address] | | | | | [address] | [place] [address] | | | | | [phone] | [phone] | | | | | | | [...] this encounter Progress Loraine Barrett RN - 06/25/2017 11:30 AM PDT Patient presents for DMSO treatment #1 of 4. Consent form signed and "Time Out" completed. After sterile prep, 2% lidocaine gel introduced into urethra for comfort and 15 fr urethral catheter inserted into bladder with 250 cc dark yellow urine drained from bladder. 50 cc DM SO with 20 cc 2% lidocaine, 10 cc 8.4% sodium bicarbonate, 40 mg Kenalog, and 10,000 units h eparin instilled into bladder via gravity per protocol and Dr. Weber's order. Patient kalin ellis in the office for 20 minutes prior to voiding. After voiding, patient was discharged h ome and will return to clinic in 1 week for next treatment. She states she feels like she ne eds to be dilated again. I did not note difficulty or resistance in catheterizing her. Discu ssed with Dr Weber and we can plan for cystoscopy with repeat dilation about a week after l ast of 4 bladder cocktail instillations. She's agreeable to this. .......................... .................Loraine Hawkins RN on 06/25/17 at 12:16 Administrations This Visit dimethyl sulfoxide (RIMSO-50) 50% solution 50 mL Admin Date 06/25/2017 Action Given Dose 50 mL Route Bladder Instillation Administered By Loraine Hawkins RN heparin 10,000 units/mL injection 10,000 Units Admin Date 06/25/2017 Action Given Dose 02000 Units Route Irrigation Administered By Loraine Hawkisn RN lidocaine 2% injection 20 mL Admin Date 06/25/2017 Action Given Dose 20 mL Route Other Administered By Loraine Hawkins RN sodium bicarbonate 1 mEq/mL injection 10 mEq Admin Date 06/25/2017 Action Given Dose 10 mEq Rate 600 mL/hr Route Other Administered By Loraine Hawkins RN triamcinolone acetonide (KENALOG-40) 40 mg/mL injection 40 mg Admin Date 06/25/2017 Action Given Dose 40 mg Route Other Administered By Loraine Hawkins RN documented in this encounter Plan of Treatment +--------+---------+ + + + | Date | Type | Specialty | Care Team | Description | +--------+---------+ + + + | 03/31/ | Office | Pulmonology | Mukul Clark MD | | | 2019 | Visit | | [address] | | | | | | [place] | | | | | | [address] | | | | | | | | +--------+---------+ + + + | 11/24/ | Office | Cardiology | [place], | | | 2019 | Visit | | SINDHU Erickson [address] | | | | | | [place], | | | | | | [place] [address] | | | | | | [phone] | | | | | | | [...] +-------+ +--------+---+---------+ +-------+ +--------+---+---------+ | Given | 07/09/ | 20 mLs | | Bladder | [...]
--- OUTSIDE RECORDS SUMMARY | ~2019-02-28 | XMS | Encounter Summary ---
Demographics + + + | Address | [address] | | | [place] [address] | + + + | Home Phone [...] Team Providers + +------+ + | Care Feed Mill Operator Name | Role | Phone | + +------+ + PCP | Unavailable | + +------+ + Encounter Details +--------+ + + + + | Date | Type | Department | Care Team | Description | +--------+ + + + + | 10/09/ | Hospital | [facility] | Avi, Guru Garzon, | | | 2010 - | Encounter | MED CTR EMERGENCY | MD [address] | | | | | CENTER [address] | [facility] [place] | | | 10/10/ | | [place], [place] | [place] [address] | | | 2010 | | [address] | [phone] | | | | | [phone] | | | +--------+ + + + [...] | | | | | | [place] [address] | | | | | | [phone] | | | | | | | [...] Performed At | + + + | [facility] Diagnostic Imaging Department | [facility] | | [address] [facility] | [facility] | | NONCONTRAST HEAD CT, 2330 HOURS, [...] | | | Transcribed Date/Time: 10/10/2010 11:50 Service And Repair Supervisor: | | | <Electronically Signed by Elías Cardoso MD> 10/11/10 0821 | | + + + + + | Procedure Note | + + | Reed, Rad Conversion - 04/02/2013 3:36 PM [facility] | | Diagnostic Imaging Department [address] [place] [address] | | NONCONTRAST HEAD CT, 2330 HOURS, [...] 11:33 | |Transcribed Date/Time: 10/10/2010 11:50 | |Service And Repair Supervisor: | |<Electronically Signed by Elías Cardoso MD> [...]
--- OUTSIDE RECORDS SUMMARY | ~2019-02-28 | XMS | Encounter Summary ---
Demographics + + + | Address | [address] | | | [place] [address] | + + + | Home Phone [...] Team Providers + +------+ + | Care Turning Machine Operator Name | Role | Phone [...] | 07/29/ | Telephone | [facility] | Weber, Andriy | Other | | 2018 | | [address] | [address] | | | | | [place] | [facility] | | | | | [address] | [place] [address] | | | | | [phone] | [phone] | | | | | | | [...] [place] | | | | | | [address] | | | | | | | | +--------+---------+ + + + | 11/24/ | Office | Cardiology | [place], | | | 2019 | Visit | | SINDHU Erickson [address] | | | | | | [place] | | | | | | [place] [address] | | | | | | [phone] | | | | | | | | +--------+---------+ + + + documented as of this encounter Visit Diagnoses Not on filedocumented in this encounter"
--- OUTSIDE RECORDS SUMMARY | ~2019-02-28 | XMS | Encounter Summary ---
Demographics + + + | Address | [address] | | | [place] [address] | + + + | Home Phone [...] Team Providers + +------+ + | Care Debeaker Name | Role | Phone | + [...] [address] | | | | | [place], | [place] | | | | | [place] [address] | [address] | | | | | [phone] | | | +--------+--------+ + + + [...] | | | | | | [place] [address] | | | | | | [phone] | | | | | | | | +--------+---------+ + + + documented as of this encounter Visit Diagnoses Not on filedocumented in this encounter"
--- OUTSIDE RECORDS SUMMARY | ~2019-02-28 | XMS | Encounter Summary ---
Demographics + + + | Address | [address] | | | [place] [address] | + + + | Home Phone [...] Providers + +------+ + | Care Media Services Coordinator Name | Role | Phone [...] + + | 07/29/ | Office | [facility] | Andriy Weber | Kendra | | 2018 | Visit | [address] | [address] | cystitis (chronic) | | | | [place], [place] | [facility] | without hematuria | | | | [address] | [place] [address] | | | | | [phone] | [phone] | | | | | | | [...] a past medical history of Adrenal insufficiency ([facility]); Anxiety; Asthma; 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 Length of Need 99 months. Please send order to [facility]. 1 each 0 Respiratory Therapy Supplies [facility] Change CPAP back to 11-14 cm H2O. All necessary suppl ies. No oxygen bleed in. Diagnosis Code(s)327.23. Length of Need: Lifetime. Please send orde r to [facility]. This is not a new [...] source of her bleeding recently. She will pickler helper Keflex for prophylaxis today. DIAGNOSTIC DATA: Catheterized [...] This document was generated in part using [employer] voice recognition software. Although ever y effort is made to edit the content, supply chain generalist errors may occur. Occasional wrong word or [...] [place] | | | | | | [address] | | | | | | | | +--------+---------+ + + + | 11/24/ | Office | Cardiology | [place], | | | 2019 | Visit | | SINDHU Erickson [address] | | | | | | [place], | | | | | | [place] [address] | | | | | | [phone] | | | | | | | [...]
--- OUTSIDE RECORDS SUMMARY | ~2019-02-28 | XMS | Encounter Summary ---
Demographics + + + | Address | [address] | | | [place] [address] | + + + | Home Phone [...] Providers + +------+ + | Care Retail Customer Service Representative Name | Role | Phone [...] | Loreta Alonso MD | ([facility]) (Primary Dx); | | | | [place], | | GARRY (obstructive | | | | [place] [address] | | sleep apnea); | | | | [phone] | | Central sleep apnea; | | [...] MD [place] Pulmonary and Critical Care [facility] [address] [place], [address] HPI Rosario Malik is a 48 y.o. [...] left her on the Spiriva (started in [place]), and continued Adva ir. I had stop [...] 03/[address] 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 Please send orde r to [facility]. This is not a new order, [...] Data: CPAP Data: Dates: 09/29/12-12/27/12 Machine type: Room 8 Studio auto CPAP Home Health Company: [employer] CPAP Pressure: 11-14 cmH2O Median Titrated Pressure: 11.6 cmH2O 95%tile Pressure: 13.7 cmH2O Maximum Pressure: 13.9 cmH2O AHI: 2.4 events/hour Total number of days: 90 Number of days used: 80 Median daily usage: 4:27 hours Percent of days used for more than 4 hours: 48 % Median leak: 0.0 L/min Records from [place] ER visits and clinic visits are reviewed. It is noted that she did ac tually go off of her medications for a period of time when she moved. Immunization History Administered Date(s) Administered INFLUENZA, >= 4YO W/PRESERVATIVE IM 12/12/2010 INFLUENZA, PRESERVATIVE FREE IM 12/13/2011, 11/27/2012 Pneumococcal (Adult) 02/24/2011 Tdap 01/22/2008 Assessment 1. COPD exacerbation - On prednisone. Poor medication compliance, here and in [place]. We have ordered her Spiriva. I told [...] made to ensure accuracy; however, inadvertent computerized call center support consultant errors may be pre sent. documented in t his encounter Plan of Treatment +--------+---------+ + + + | Date | Type | Specialty | Care Team | Description | +--------+---------+ + + + | 03/31/ | Office | Pulmonology | Mukul Clark MD | | | 2019 | Visit | | [address] | | | | | | [place] | | | | | | [address] | | | | | | | | +--------+---------+ + + + | 11/24/ | Office | Cardiology | [place], | | | 2019 | Visit | | SINDHU Erickson [address] | | | | | | [place], | | | | | | [place] [address] | | | | | | [phone] | | | | | | | [...]
--- OUTSIDE RECORDS SUMMARY | ~2019-02-28 | XMS | Encounter Summary ---
Demographics + + + | Address | [address] | | | [place] [address] | + + + | Home Phone [...] Team Providers + +------+ + | Care Driver Recruiter Name | Role | Phone | [...] | [address] [place] | [place] [address] | Dx) | | | | [facility], [place] | [phone] | | | | | [address] | | | | | | [phone] | | | +--------+ + + + [...] [place] | | | | | | [address] | | | | | | | | +--------+---------+ + + + | 11/24/ | Office | Cardiology | [place], | | | 2019 | Visit | | SINDHU Erickson [address] | | | | | | [place], | | | | | | [place] [address] | | | | | | [phone] | | | | | | | | +--------+---------+ + + + documented as of this encounter Visit Diagnoses + + | Diagnosis | + + | Other specified sites of sprains and strains - Primary | + + documented in this encounter"
--- OUTSIDE RECORDS SUMMARY | ~2019-02-28 | XMS | Encounter Summary ---
Demographics + + + | Address | [address] | | | [place] [address] | + + + | Home Phone [...] Team Providers + +------+ + | Care Chapter Relations Administrator Name | Role | Phone | [...] | | | | | pulmonary | [address] | [address] | | | | | disease, | [place], | [address] [place] | | | | | unspecified | [place] [address] | [place], [place] | | | | | COPD type | Phone: | [address] | | | | | (HCC) | [phone] | Phone: | | | | | Pulmonary | Fax: | [phone] | | | | | emphysema, | [phone] | Fax: | | | | | unspecified | | [phone] | | | | | emphysema | | | | | | | type ([facility]) | | | +--------+ + + + + + Encounter Details +--------+---------+ + + + | Date | Type | Department | Care Team | Description | +--------+---------+ + + + | 05/07/ | Office | [facility] | Danieljeremyjose Jared, | Mild persistent | | 2017 | Visit | MED CTR CARDIAC | [address] | asthma without | | | | REHABILITATION [address] [place] [place], | complication | | | | [address] [place] | [place] [address] | (Primary Dx); | | | | [place] [address] | [phone] | Chronic obstructive | | | | [phone] | | pulmonary disease, | | | [...] of this encounter Progress Notes Tricia Herron, COTA - 05/07/2016 1:52 PM PDTMsChris Malik is [...] | | | [place] | | | | | | [address] | | | | | | | | +--------+---------+ + + + | 11/24/ | Office | Cardiology | [place], | | | 2019 | Visit | | SINDHU Erickson [address] | | | | | | [address] [place], | | | | | | [place] [address] | | | | | | [phone] | | | | | | | [...]
--- OUTSIDE RECORDS SUMMARY | ~2019-02-28 | XMS | Encounter Summary ---
Demographics + + + | Address | [address] | | | [place] [address] | + + + | Home Phone [...] Team Providers + +------+ + | Care Appeals Manager Name | Role | Phone | + +------+ + PCP | Unavailable | + +------+ + Encounter Details +--------+ + + + + | Date | Type | Department | Care Team | Description | +--------+ + + + + | 08/18/ | Hospital | [facility] | Lencho Goss MD | | | 2000 | Encounter | MED CTR XRAY [address] | [address] | | | | | [address] [place] | [address] [place], [place] | | | | | [place] [address] | [address] | | | | | [phone] | | | +--------+ + + + [...] [place] | | | | | | [address] | | | | | | | | +--------+---------+ + + + | 11/24/ | Office | Cardiology | [place], | | | 2019 | Visit | | SINDHU Erickson [address] | | | | | | [place] | | | | | | [place] [address] | | | | | | [phone] | | | | | | | | +--------+---------+ + + + documented as of this encounter Visit Diagnoses Not on filedocumented in this encounter"
--- OUTSIDE RECORDS SUMMARY | ~2019-02-28 | XMS | Encounter Summary ---
Demographics + + + | Address | [address] | | | [place] [address] | + + + | Home Phone [...] Providers + +------+ + | Care Track Welder Name | Role | Phone | + +------+ + | Juan Cherry DO | PCP | | + +------+ + Encounter Details +--------+ + + + + | Date | Type | Department | Care Team | Description | +--------+ + + + + | 04/02/ | Hospital | [facility] | Dio Yun | | | 2017 | Encounter | MED CTR NUCLEAR | MD Jesus [address] | | | | | MEDICINE [address] | [address] | | | | | [place], | [place], [place] | | | | | [place] [address] | [address] | | | | | [phone] | [phone] | | | | | | | [...] | | | | | | | [facility]. | | | | | [...] | 0 | 10/13/19 | | | Zwqdbmulwh-BUOD-Gldd | mouth as needed. | | | 16 | 7 | | -Cod [id number] MG | | | | | | [...] | | | | | | [place] [address] | | | | | | [phone] | | | | | | | [...]
--- OUTSIDE RECORDS SUMMARY | ~2019-02-28 | XMS | Encounter Summary ---
Demographics + + + | Address | [address] | | | [place] [address] | + + + | Home Phone [...] Team Providers + +------+ + | Care Employee Service Officer Name | Role | Phone | [...] | | | | CENTER [address] | | carried out because | | | | [place] | | of patient's | | | | [address] | | decision (Primary | | | | [phone] | | Dx) | +--------+ + + [...] | | | | | order to [facility]. | | | | | + + [...] | | | | | [facility]. | | | | | | [...] [place] | | | | | | [phone] | | | | | | | | +--------+---------+ + + + | 11/24/ | Office | Cardiology | [place], | | | 2019 | Visit | | SINDHU Erickson [address] | | | | | | [place] | | | | | | [place] [address] | | | | | | [phone] | | | | | | | | +--------+---------+ + + + documented as of this encounter Visit Diagnoses + + | Diagnosis | + + | Surgical or other procedure not carried out because of patient's decision - Primary | + + documented in this encounter"
--- OUTSIDE RECORDS SUMMARY | ~2019-02-28 | XMS | Encounter Summary ---
Demographics + + + | Address | [address] | | | [place] [address] | + + + | Home Phone [...] Providers + +------+ + | Care Engine Pilot Name | Role | Phone | [...] | | [place] | [facility] | | | | | [address] | [place] [address] | | | | | [phone] | [phone] | | | | | | | [...] [place] | | | | | | [address] | | | | | | | | +--------+---------+ + + + | 11/24/ | Office | Cardiology | [place], | | | 2019 | Visit | | SINDHU Erickson [address] | | | | | | [place], | | | | | | [place] [address] | | | | | | [phone] | | | | | | | | +--------+---------+ + + + documented as of this encounter Visit Diagnoses Not on filedocumented in this encounter"
--- OUTSIDE RECORDS SUMMARY | ~2019-02-28 | XMS | Encounter Summary ---
Demographics + + + | Address | [address] | | | [place] [address] | + + + | Home Phone [...] Team Providers + +------+ + | Care Ice Carver Name | Role | Phone | [...] | | MD Jared | [address] | | | | | Pericarditis | [address] | [place], | | | | | Procedures | [address] | [place] | | | | | ECHO | [place], | [address] | | | | | Complete | [place] [address] | Phone: | | | | | | Phone: | [phone] | | | | | | [phone] | Fax: | | | | | | Fax: | [phone] | | | | | | [phone] | | +--------+--------+ + + + + [...] | CARDIOLOGY [address] | [address] | (Primary Dx); | | | | [address] [place], | [place], | [place]; | | | | [place] [address] | [place] [address] | Tachycardia; | | | | [phone] | [phone] | Pericarditis | | | | | [...] referred to Dr. Ding to discuss at [facility] tachycardia ablation. Patient was seen by [...] was seen at the ED of [facility] 3 weeks ago. There was no [...] Take by mouth Daily. Respiratory Therapy Supplies [facility] Incentive spirometer. Please provide instructions in use. Dx: 848.8 MADELEINE: 3 months 1 each 99 Respiratory Therapy Supplies [facility] Please provide patient with necessary CPAP supplies ( she did not specify, okay to send order as appropriate) Diagnosis Code(s)327.23 . Length of Need 99 months. Please send order to [facility]. 1 each 0 Respiratory Therapy Supplies [facility] Change CPAP back to 11-14 cm H2O. All necessary suppl ies. No oxygen bleed in. Diagnosis Code(s)327.23. Length of Need: Lifetime. Please send orde r to [facility]. This is not a new [...] was seen at the ED of [facility] 3 weeks ag o. according to the history, I suspect that she has pericarditis. However, EKG shows no ST elevation. Physical exam shows no pericardial rub. Patient states that she is allergic to NSAID's There is no signs and symptoms of overt congestive heart failure. She is in a class II of [place] [employer] functional class. There is no [...] ventricular function don e at the [facility]. LVEF 78%. C. Holter Monitor 08/16/13 [...] weeks. Electronically signed by: Jared Mcdonough MD [facility] 01/11/2014 Portions of this chart may have been created with [employer] voice recognition software. Occasi onal wrong-word or [...] [place] | | | | | | [address] | | | | | | | | +--------+---------+ + + + | 11/24/ | Office | Cardiology | [place], | | | 2019 | Visit | | SINDHU Erickson [address] | | | | | | [address] [place], | | | | | | [place] [address] | | | | | | [phone] | | | | | | | [...] Performed At | + + + | [facility] ECHOCARDIOGRAM REPORT | WARE | | STUDY DATE: 01/14/2014 PATIENT NAME: Rosario Malik | [facility] | | : 1965 PCP: Juan Cherry, [facility] | | CLINICAL HISTORY/DIAGNOSIS: Pericarditis/pericardial effusion A [...] MD [facility] 01/14/2014 8:40 Senior Contracts Administrator: | | | Charmaine Ibarra RDMS | | + + + + + | Procedure Note | + + | Jared Mcdonough MD - 01/14/2014 11:28 AM [facility] | | CENTERECHOCARDIOGRAM REPORTSTUDY DATE: 01/14/2014PATIENT NAME: Rosario AyersOB: | | 1965MRN: [id number]: EFREN GuillaumeLINICAL HISTORY/DIAGNOSIS: | | Pericarditis/pericardial effusionA [...] | mmHgLA volume: 30 mLLA index: 18 mL/c2Jgygpq Inflow DT: 262 msIVRT: 75 msValsalva: | | NegativePWDTI S wave: 8.7 cm/sPWDTI E wave: 9.0 cm/sPWDTI A wave: 11.5 cm/sE/A Ratio: | | 0.783E/E Ratio: 8.95Signed by: Jared Mcdonough MD [facility] 01/14/2014 8:40 | | Senior Contracts Administrator: Charmaine Ibarra RDMS | | | | [...] 01/14/2014 8:40 | | | | | |Senior Contracts Administrator: Charmaine Ibarra RDMS | + + + + + + + | Performing | Address | City/State/Zipcode | Phone Number | | Organization | | | | + + + + + | [facility] | [address] | [place] | [phone] | | [facility] | | [address] | | | - IMAGING | | [...]
--- OUTSIDE RECORDS SUMMARY | ~2019-02-28 | XMS | Encounter Summary ---
Demographics + + + | Address | [address] | | | [place] [address] | + + + | Home Phone [...] Providers + +------+ + | Care Director [employer] Name | Role | Phone | + [...] | | | | [facility] | [address] | [address] | | | | | EXERCISE | [place], | [place] | | | | | | [place] [address] | [place], [place] | | | | | | Phone: | [address] | | | | | | [phone] | Phone: | | | | | | Fax: | [phone] | | | | | | [phone] | Fax: | | | | | | | [phone] | +--------+--------+ + + + + Encounter Details +--------+---------+ + + + | Date | Type | Department | Care Team | Description | +--------+---------+ + + + | 07/04/ | Office | [facility] | Jared Mcdonough, | Chronic obstructive | | 2017 | Visit | MED CTR CARDIAC | MD Migdalia King | pulmonary disease, | | | | REHABILITATION [address] [place], | unspecified COPD | | | | [address] [place] | [place] [address] | type (HCC) (Primary | | | | [place] [address] | [phone] | Dx); Mild persistent | | | | [phone] | | asthma without | | | [...] [place] | | | | | | [address] | | | | | | | | +--------+---------+ + + + | 11/24/ | Office | Cardiology | [place], | | | 2019 | Visit | | SINDHU Erickson [address] | | | | | | [place], | | | | | | [place] [address] | | | | | | [phone] | | | | | | | [...]
--- OUTSIDE RECORDS SUMMARY | ~2019-02-28 | XMS | Encounter Summary ---
Demographics + + + | Address | [address] | | | [place] [address] | + + + | Home Phone [...] Team Providers + +------+ + | Care Book Mender Name | Role | Phone | + [...] | | | | | level ([facility]) | [place] | | | | | | Procedures | [place], [place] | | | | | | MRI Brain w | [address] | | | | | | wo Contrast | Phone: | | | | | | | [phone] | | | | | | | Fax: | | | | | | | [phone] | | +--------+--------+ + + + + [...] | | | MRI Brain w | [address] | | | | | | wo Contrast | Phone: | | | | | | | [phone] | | | | | | | Fax: | | | | | | | [phone] | | +--------+--------+ + + + + Encounter Details +--------+ + + + + | Date | Type | Department | Care Team | Description | +--------+ + + + + | 08/09/ | Hospital | [facility] | Daya Decker, | Aleksandr prolactin | | 2016 | Encounter | MED CTR MRI [address] | MD [address] | level ([facility]) | | | | [place], | [place] | | | | | [place] [address] | [address] | | | | | [phone] | [phone] | | | | | | | [...] | | | | | | [facility]. | | | | | [...] [place] | | | | | | [address] | | | | | | | | +--------+---------+ + + + | 11/24/ | Office | Cardiology | [place], | | | 2020 | Visit | | SINDHU Erickson [address] | | | | | | [place], | | | | | | [place] [address] | | | | | | [phone] | | | | | | | [...] mL/min/1.73m2 | [facility] | | | [place] | | | MEDICAL | | | [...] [address] | [place] | [phone] | | [facility] | | [address] | | | - LABORATORY | | [...] and signal | | characteristics. No abnormal R5jdjmlckfhzmoad, contrast enhancement, susceptibility | | change, or [...] | | | | PRN, Other, Starting [facility] 08/10/15 | | AM PDT | | | | | at 0949, For 1 dose, MRI | | | | | | + +--------+ +--------+------+------+ +---+---+ | | | +---+---+ documented in this encounter"
--- OUTSIDE RECORDS SUMMARY | ~2019-02-28 | XMS | Encounter Summary ---
Demographics + + + | Address | [address] | | | [place] [address] | + + + | Home Phone [...] Team Providers + +------+ + | Care Slot Tag Inserter Name | Role | Phone | + +------+ + PCP | Unavailable | + +------+ + Encounter Details +--------+ + + + + | Date | Type | Department | Care Team | Description | +--------+ + + + + | 02/09/ | Hospital | [facility] | Alexi Guaman, | | | 2009 | Encounter | MED CTR EMERGENCY | [address] | | | | | [place] [address] | [place] | | | | | [place] | [address] | | | | | [address] | | | | | | [phone] | | | +--------+ + + + [...] [place] | | | | | | [address] | | | | | | | | +--------+---------+ + + + | 11/24/ | Office | Cardiology | [place], | | | 2019 | Visit | | SINDHU Erickson [address] | | | | | | [place], | | | | | | [place] [address] | | | | | | [phone] | | | | | | | | +--------+---------+ + + + documented as of this encounter Visit Diagnoses Not on filedocumented in this encounter"
--- OUTSIDE RECORDS SUMMARY | ~2019-02-28 | XMS | Encounter Summary ---
Demographics + + + | Address | [address] | | | [place] [address] | + + + | Home Phone [...] Team Providers + +------+ + | Care Granulizing Machine Operator Name | Role | Phone [...] + + | 09/17/ | Office | [facility] | Ashlee Allison, | Palpitations | | 2018 | Visit | CARDIOLOGY [address] | AVICULTURIST [address] [place] | (Primary Dx); | | | | [place], | [facility] [place] | Paroxysmal atrial | | | | [place] [address] | [address] | tachycardia (HCC); | | | | [phone] | | Hypotension due to | | [...] was again seen in emergency department at [facility] on 08/30/17 for tachycardia, ECG showing sinus tachycardia with rate of 110 beats per minute, no acute f indings, her potassium was found to be low at 3.1, and blood pressure was high 144/111 mmHg, she was given one replacement dose of potassium, and had 48 hour Holter placed. She was aga in seen in emergency department at [facility] on 09/13/17 for tachyca rdia, [...] takes this da rigoberto Respiratory Therapy Supplies [facility] Please provide patient with necessary CPAP supplies [...] adversely affected Probable Sinus tachycardia with short OR though P waves are difficult to identify due to p oor quality of tracing PAC's Possible Inferior infarct , age undetermined Nonspecific ST and T wave abnormality :cannot exclude ischemia Abnormal ECG When compared with ECG of 30-AUG-2017 11:40, premature supraventricular complexes are no longer present OR interval has decreased Possible Inferior infarct is now present Confirmed by RUSSELL PAUL, RAFA ([id number]) on 09/14/2017 9:47:53 AM LAB RESULTS reviewed during visit today primarily from [employer] and [facility]: LIPID Lab Results Component Value Date CHOLHDL [...] BNP 22 08/14/2017 I reviewed records from [facility] for emergency department visit o n 08/14/17, 08/30/17, and 09/13/17 which is summarized in the HPI. IMAGING- I reviewed reports from [facility]: Xr Chest Ap Portable Result [...] v entricular function done at the [facility]. LVEF 78%. C. Holter Monitor 08/16/13 [...] was seen at the ED of [facility] 3 weeks ago and again 1 [...] this chart may have been created with [employer] voice recognition software. Occasi onal wrong-word or [...] [place] | | | | | | [address] | | | | | | | | +--------+---------+ + + + | 11/24/ | Office | Cardiology | [place], | | | 2019 | Visit | | SINDHU Erickson [address] | | | | | | [place], | | | | | | [place] [address] | | | | | | [phone] | | | | | | | [...] [address] | [place] | [phone] | | [facility] | | [address] | | | - LABORATORY | | [...] | 0.79 | 0.60 - 1.30 | [facility] | | | | | mg/dL | [...] | | MEDICAL | | | | mL/min/1.46k6Bdqk than | | CENTER - | | [...] [address] | [place] | [phone] | | [facility] | | [address] | | | - LABORATORY | | [...]
--- OUTSIDE RECORDS SUMMARY | ~2019-02-28 | XMS | Encounter Summary ---
Demographics + + + | Address | [address] | | | [place] [address] | + + + | Home Phone [...] Providers + +------+ + | Care Applications System Analyst Name | Role | Phone [...] + + | 09/06/ | Telephone | [facility] | Kevin Sandoval, | Other (increased | | 2014 | | PULMONARY [address] | MD [address] | shortness of breath) | | | | [place], | [place], [place] | | | | | [place] [address] | [address] | | | | | [phone] | | | +--------+ + + + [...] [place] | | | | | | [address] | | | | | | | | +--------+---------+ + + + | 11/24/ | Office | Cardiology | [place], | | | 2019 | Visit | | SINDHU Erickson [address] | | | | | | [place], | | | | | | [place] [address] | | | | | | [phone] | | | | | | | | +--------+---------+ + + + documented as of this encounter Visit Diagnoses Not on filedocumented in this encounter"
--- OUTSIDE RECORDS SUMMARY | ~2019-02-28 | XMS | Encounter Summary ---
Demographics + + + | Address | [address] | | | [place] [address] | + + + | Home Phone [...] Team Providers + +------+ + | Care Swine Nutritionist Name | Role | Phone | + +------+ + | Juan Cherry DO | PCP | | + +------+ + Encounter Details +--------+ + + + + | Date | Type | Department | Care Team | Description | +--------+ + + + + | 11/14/ | Abstract | [facility] | Jared Mcdonough, | | | 2014 | | CARDIOLOGY [address] | MD [address] [place] | | | | | [place], | [place], | | | | | [place] [address] | [place] [address] | | | | | [phone] | [phone] | | | | | | | [...] [place] | | | | | | [address] | | | | | | | | +--------+---------+ + + + | 11/24/ | Office | Cardiology | [place], | | | 2019 | Visit | | SINDHU Erickson [address] | | | | | | [place], | | | | | | [place] [address] | | | | | | [phone] | | | | | | | [...]
--- OUTSIDE RECORDS SUMMARY | ~2019-02-28 | XMS | Encounter Summary ---
Demographics + + + | Address | [address] | | | [place] [address] | + + + | Home Phone [...] Team Providers + +------+ + | Care Mainframe Programmer Analyst Name | Role | Phone | + +------+ + PCP | Unavailable | + +------+ + Encounter Details +--------+ + + + + | Date | Type | Department | Care Team | Description | +--------+ + + + + | 07/31/ | Hospital | [facility] | Abigail Ozzie | | | 2010 | Encounter | MED CTR EMERGENCY | MD Ran [address] | | | | | SELENE [address] | [address] [facility] | | | | | [place], [place] | [place] [address] | | | | | [address] | [phone] | | | | | [phone] | | | +--------+ + + + [...] [place] | | | | | | [address] | | | | | | | | +--------+---------+ + + + | 11/24/ | Office | Cardiology | [place], | | | 2019 | Visit | | SINDHU Erickson [address] | | | | | | [place], | | | | | | [place] [address] | | | | | | [phone] | | | | | | | [...] - 1.030 | [facility] | | | [place] | | | [facility] | | [...] | [facility] | [address] | [place] | [phone] | | [facility] | | [address] | | | - LABORATORY | | | | + + + + + | [facility] | [address] | [place] | | | [facility] | | [address] | | | - LABORATORY | | [...] | [facility] | [address] | [place] | [phone] | | [facility] | | [address] | | | - LABORATORY | | | | + + + + + | [facility] | [address] | [place], [place] | | | [facility] | | [address] | | | - LABORATORY | | [...] | | | | | | [facility] | | | | | | MEDICAL [...] | [facility] | [address] | [place], [place] | [phone] | | [facility] | | [address] | | | - LABORATORY | | | | + + + + + | [facility] | [address] | [place], [place] | | | [facility] | | [address] | | | - LABORATORY | | [...] | + + + + + | [facility] | [address] | [place], [place] | [phone] | | [facility] | | [address] | | | - LABORATORY | | | | + + + + + | [facility] | [address] | [place], [place] | | | [facility] | | [address] | | | - LABORATORY | | | | + + + + + CT Abdomen Pelvis w Contrast (07/31/2010 2:22 AM PDT) + + | Specimen | + + | | + + + + + | Narrative | Performed At | + + + | [facility] Diagnostic Imaging Department | [facility] | | [address] [facility] | [facility] | | CT ABDOMEN AND PELVIS WITH [...] Transcribed Date/Time: 07/31/2010 | | | 10:29 Hand Coke Drawer: <Electronically Signed by Lencho Reynolds | | | MD Shira> 07/31/10 1718 | | + + + + + | Procedure Note | + + | Roger Mcbride Conversion - 04/02/2013 3:05 PM [facility] | | Diagnostic Imaging Department [address] [facility] | | CT ABDOMEN AND PELVIS [...] 08:28 | |Transcribed Date/Time: 07/31/2010 10:29 | |Hand Coke Drawer: | |<Electronically Signed by Lencho Silva MD> [...]
--- OUTSIDE RECORDS SUMMARY | ~2019-02-28 | XMS | Encounter Summary ---
Demographics + + + | Address | [address] | | | [place] [address] | + + + | Home Phone [...] Team Providers + +------+ + | Care Biology Teacher Name | Role | Phone | [...] + + | 04/06/ | Office | [facility] | Brian Miranda | Sprain of chest wall | | 2014 | Visit | OCCUPATIONAL HEALTH | MD [address] | (Primary Dx); Place | | | | [facility] [address] | [facility] | of occurrence, | | | | [address] [facility] | [place] [address] | industrial places | | | | [place], [place] | [phone] | and premises | | | | [address] | | | | | | [phone] | | | +--------+---------+ + + + [...] MD - 04/06/2013 5:30 PM PSTSee dictation [id number] lisha d by Brian Miranda MD at 04/06/2013 5:30 PM Brian Avendano MD - 04/06/19 14 12:00 AM [facility] OCCUPATIONAL MEDICINE [address] [place] [address] [place], [place] [address] FAX: [phone] OFFICE VISIT CLAIM NO: [id number] DATE OF INJURY: 04/05/2013 EMPLOYER: Jelani Alcantara GUARANTOR: Jelani Rojas COMPLAINT: Chest wall sprain, unscheduled visit for followup evaluation and ongoing care. S: The injured worker is 48 years of age who presented without a scheduled appointment at [facility] urgent care/Occ/Med for an evaluation. 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 It was quite p ainful. She was unable to continue to work. She was evaluated in the emergency department a [facility] and that report is available for [...] GChris Miranda MD / AP JOB #: [id number] signed by Brian Miranda MD at 04/07/2013 10:26 AM PSTd ocumented in this encounter Plan of Treatment +--------+---------+ + + + | Date | Type | Specialty | Care Team | Description | +--------+---------+ + + + | 03/31/ | Office | Pulmonology | Mukul Clark MD | | | 2019 | Visit | | [address] | | | | | | [place] | | | | | | [address] | | | | | | | | +--------+---------+ + + + | 11/24/ | Office | Cardiology | [place] | | | 2019 | Visit | | SINDHU Erickson [address] | | | | | | [place], | | | | | | [place] [address] | | | | | | [phone] | | | | | | | [...]
--- OUTSIDE RECORDS SUMMARY | ~2019-02-28 | XMS | Encounter Summary ---
Demographics + + + | Address | [address] | | | [place] [address] | + + + | Home Phone [...] + +------+ + | Care Loss Prevention Guard Name | Role | Phone | + +------+ + | Juan Cherry DO | PCP | | + +------+ + Encounter Details +--------+ + + + + | Date | Type | Department | Care Team | Description | +--------+ + + + + | 11/06/ | Hospital | [facility] | Juan Cherry, | Pituitary mass (HCC) | | 2014 | Encounter | MED CTR LABORATORY | DO [address] [facility] | | | | | [address] [place] | [place], [place] | | | | | [place], [place] | [address] | | | | | [address] | [phone] | | | | | [phone] | | | | | | | [...] | | | | | [facility]. | | | | | | [...] [place] | | | | | | [address] | | | | | | | | +--------+---------+ + + + | 11/24/ | Office | Cardiology | [place], | | | 2020 | Visit | | SINDHU Erickson [address] | | | | | | [place], | | | | | | [place] [address] | | | | | | [phone] | | | | | | | [...] 24HR | e | 11:00 AM | ([facility]) | procedure are in the [...] [place] | | | | | | [address] | | | | + + + [...] | Cortisol, | 8.77Comment: Reference | ug/g ENGRAVER SIGNATURE | REFERENCE | | | Urine, | [...] | | | | than 32 ug/g acid pumper | | | | + + + [...] | | | this test in the [employer] | | | | | | Laboratory Test | | | | | | Directory(CompareAway).T | | | | | | est developed and | | | | | | characteristics | | | | | | determined by [facility] | | | | | | Laboratories.See | | | | | | Compliance Statement B: | | | | | | CompareAway/CSTesting | | | | | | Performed: [facility], [address] | | | | | | [address], [place] | | | | | | [id number] Performed: | | | | | | [facility], [address], | | | | | | [place] [address] | | | | + + + + + + + + | Specimen | + + | Urine specimen | | (specimen) | + + + + + + + | Performing | Address | City/State/Zipcode | Phone Number | | Organization | | | | + + + + + | [facility] | [address] | [place] [address] | [phone] | + + + + + documented in this encounter Visit Diagnoses + + | Diagnosis | + + | Pituitary mass (HCC) Unspecified disorder of the pituitary gland and its hypothalamic | | control | + + documented in this encounter"
--- OUTSIDE RECORDS SUMMARY | ~2019-02-28 | XMS | Encounter Summary ---
Demographics + + + | Address | [address] | | | [place] [address] | + + + | Home Phone [...] emphysema type (HCC) | | | | [place], | [address] | (Primary Dx) | | | | [place] [address] | | | | | | [phone] | | | +--------+ + + + [...] [place] | | | | | | [address] | | | | | | | | +--------+---------+ + + + | 11/24/ | Office | Cardiology | [place], | | | 2019 | Visit | | SINDHU Erickson [address] | | | | | | [place], | | | | | | [place] [address] | | | | | | [phone] | | | | | | | [...] | | | Rom[facility] | | |IMPRESSION: Spirometry is consistent [...] Kevin Sandoval MD 02/29/2016 6:30 | | |[facility] | | + + + documented in this encounter Visit Diagnoses + + | Diagnosis | + + | Pulmonary emphysema, unspecified emphysema type (HCC) - Primary | + + documented in this encounter"
--- OUTSIDE RECORDS SUMMARY | ~2019-02-28 | XMS | Encounter Summary ---
Demographics + + + | Address | [address] | | | [place] [address] | + + + | Home Phone [...] Team Providers + +------+ + | Care Hvac Service Manager Name | Role | Phone | [...] + + | 04/14/ | [facility] | [facility] | Brian Miranda | Sprain of chest wall | | 2013 | Visit | OCCUPATIONAL HEALTH | MD [address] | (Primary Dx); Place | | | | [place] [address] | [address] [facility] | of occurrence, | | | | [address] [place] | [place] [address] | industrial places | | | | [place], [place] | [phone] | and premises | | | | [address] | | | | | | [phone] | | | +--------+---------+ + + + [...] MD - 04/14/2013 11:10 AM PSTSee dictation [id number] lisha d by Brian Miranda MD at 04/14/2013 11:11 AM Brian Avendano MD - 04/14/19 14 12:00 AM PST OCCUPATIONAL MEDICINE [address] [place] [address] [place] [address] FAX: [phone] OFFICE VISIT Claim Number: [id number] Date of Injury: 04/05/2013 Employer: [employer] [...] Srinath Miranda MD / AF JOB #: [id number] signed by Brian Miranda MD at 04/15/2013 [...] [place] | | | | | | [id number] | | | | | | | | +--------+---------+ + + + | 11/24/ | Office | Cardiology | [place], | | | 2019 | Visit | | SINDHU Erickson [address] | | | | | | [place], | | | | | | [place] [address] | | | | | | [phone] | | | | | | | [...]
--- OUTSIDE RECORDS SUMMARY | ~2019-02-28 | XMS | Encounter Summary ---
Demographics + + + | Address | [address] | | | [place] [address] | + + + | Home Phone [...] Providers + +------+ + | Care Computer Assembler Name | Role | Phone | [...] + + | 10/02/ | Telephone | [facility] | Andriy Weber | Appointment | | 2017 | | [address] | MD [address] | | | | | [place] | THOM [facility] | | | | | [address] | [place] [address] | | | | | [phone] | [phone] | | | | | | | [...] [place] | | | | | | [address] | | | | | | | | +--------+---------+ + + + | 11/24/ | Office | Cardiology | [place], | | | 2019 | Visit | | SINDHU Erickson [address] | | | | | | [place] | | | | | | [place] [address] | | | | | | [phone] | | | | | | | | +--------+---------+ + + + documented as of this encounter Visit Diagnoses Not on filedocumented in this encounter"
--- OUTSIDE RECORDS SUMMARY | ~2019-02-28 | XMS | Encounter Summary ---
Demographics + + + | Address | [address] | | | [place] [address] | + + + | Home Phone [...] Team Providers + +------+ + | Care Tin Roofer Name | Role | Phone | + [...] + + | 03/01/ | Telephone | [facility] | Jarde Mcdonough, | Other (having pain | | 2015 | | CARDIOLOGY [address] | [address] | after heart cath) | | | | [place], | [place], | | | | | [place] [address] | [place] [address] | | | | | [phone] | [phone] | | | | | | | [...] | | | | | | [place] [address] | | | | | | [phone] | | | | | | | | +--------+---------+ + + + documented as of this encounter Visit Diagnoses Not on filedocumented in this encounter"
--- OUTSIDE RECORDS SUMMARY | ~2019-02-28 | XMS | Encounter Summary ---
Demographics + + + | Address | [address] | | | [place] [address] | + + + | Home Phone [...] Providers + +------+ + | Care Director University Name | Role | Phone | + [...] + + | 06/19/ | Emergency | [facility] | Nestor Martinez, | COPD with acute | | 2013 - | | MED CTR EMERGENCY | [address] | exacerbation (HCC) | | | | CENTER [address] | [place], [place] | (Primary Dx) | | 06/20/ | | [place] | [address] | | | 2013 | | [address] | | | | | | [phone] | Ozzie Hayes | | | | | | MD Ran [address] | | | | | | [address] [facility] | | | | | | [place] [address] | | | | | | [phone] | | | | | | | [...] | | send order to [facility] | | | | | | | [...] [place] | | | | | | [address] | | | | | | | | +--------+---------+ + + + | 11/24/ | Office | Cardiology | [place], | | | 2019 | Visit | | SINDHU Erickson [address] | | | | | | [place], | | | | | | [place] [address] | | | | | | [phone] | | | | | | | [...]
--- OUTSIDE RECORDS SUMMARY | ~2019-02-28 | XMS | Encounter Summary ---
Demographics + + + | Address | [address] | | | [place] [address] | + + + | Home Phone [...] Providers + +------+ + | Care Clinical Support Specialist Name | Role | Phone [...] + + | 09/05/ | Telephone | [facility] | Kevin Sandoval, | Medication Prior | | 2014 | | PULMONARY [address] | MD [address] | Authorization | | | | [place], | [place] | | | | | [place] [address] | [address] | | | | | [phone] | | | +--------+ + + + [...] | | | | | | [place] [address] | | | | | | [phone] | | | | | | | | +--------+---------+ + + + documented as of this encounter Visit Diagnoses Not on filedocumented in this encounter"
--- OUTSIDE RECORDS SUMMARY | ~2019-02-28 | XMS | Encounter Summary ---
Demographics + + + | Address | [address] | | | [place] [address] | + + + | Home Phone [...] Team Providers + +------+ + | Care Semiconductor Package Symbol Stamper Name | Role | Phone | + [...] | | | | | pulmonary | [address] | [address] | | | | | disease, | [place], | [place] | | | | | unspecified | [place] [address] | [place], [place] | | | | | COPD type | Phone: | [address] | | | | | (HCC) | [phone] | Phone: | | | | | Pulmonary | Fax: | [phone] | | | | | emphysema, | [phone] | Fax: | | | | | unspecified | | [phone] | | | | | emphysema | | | | | | | type ([facility]) | | | +--------+ + + + + + Encounter Details +--------+---------+ + + + | Date | Type | Department | Care Team | Description | +--------+---------+ + + + | 05/23/ | Office | [facility] | Sharonda Delmycaitie, | Chronic obstructive | | 2017 | Visit | MED CTR CARDIAC | [address] | pulmonary disease, | | | | REHABILITATION [address] | [place], | unspecified COPD | | | | [address] [place] | [place] [address] | type (HCC) (Primary | | | | [place] [address] | [phone] | Dx) | | | | [phone] | | | +--------+---------+ + + + [...] Desean Wheeler - 05/23/2016 3:07 PM PDT [facility] CARDIAC REHABILITATION [address] [place] [address] Cardiac Rehab Date: 05/23/2016 Patient Information Patient [...] [place] | | | | | | [id number] | | | | | | | | +--------+---------+ + + + | 11/24/ | Office | Cardiology | [place], | | | 2019 | Visit | | SINDHU Erickson [address] | | | | | | [place], | | | | | | [place] [address] | | | | | | [phone] | | | | | | | | +--------+---------+ + + + documented as of this encounter Visit Diagnoses + + | Diagnosis | + + | Chronic obstructive pulmonary disease, unspecified COPD type (HCC) - Primary | + + documented in this encounter"
--- OUTSIDE RECORDS SUMMARY | ~2019-02-28 | XMS | Encounter Summary ---
Demographics + + + | Address | [address] | | | [place] [address] | + + + | Home Phone [...] Team Providers + +------+ + | Care Podiatry Doctor Name | Role | Phone | + +------+ + PCP | Unavailable | + +------+ + Encounter Details +--------+ + + + + | Date | Type | Department | Care Team | Description | +--------+ + + + + | 04/05/ | [facility] | [facility] | | | | 2010 | Encounter | MED CTR XRAY [address] | | | | | | [place] | | | | | | [place] [address] | | | | | | [phone] | | | +--------+ + + + [...] [place] | | | | | | [address] | | | | | | | | +--------+---------+ + + + | 11/24/ | Office | Cardiology | [place], | | | 2019 | Visit | | SINDHU Erickson [address] | | | | | | [place], | | | | | | [place] [address] | | | | | | [phone] | | | | | | | | +--------+---------+ + + + documented as of this encounter Visit Diagnoses Not on filedocumented in this encounter"
--- OUTSIDE RECORDS SUMMARY | ~2019-02-28 | XMS | Encounter Summary ---
Demographics + + + | Address | [address] | | | [place] [address] | + + + | Home Phone [...] Providers + +------+ + | Care Shoe Repair Cobbler Name | Role | Phone | + [...] [address] | | | | | [place], | [place], | | | | | [place] [address] | [place] [address] | | | | | [phone] | [phone] | | | | | | | [...] | | | | [address] [place], [place] | | | | | | [address] | | | | | | | | +--------+---------+ + + + | 11/24/ | Office | Cardiology | [place], | | | 2019 | Visit | | SINDHU Erickson [address] | | | | | | [place], | | | | | | [place] [address] | | | | | | [phone] | | | | | | | [...]
--- OUTSIDE RECORDS SUMMARY | ~2019-02-28 | XMS | Encounter Summary ---
Demographics + + + | Address | [address] | | | [place] [address] | + + + | Home Phone [...] Team Providers + +------+ + | Care Knotting Machine Operator Portable Name | Role | Phone | + [...] + + | 05/23/ | Emergency | [facility] | Heriberto, | COPD with acute | | 2013 | | MED CTR EMERGENCY | Ozzy Kim MD [address] | exacerbation (HCC) | | | | [place] [address] | [facility] | (Primary Dx); COPD | | | | [place], [place] | [place] [address] | exacerbation (HCC) | | | | [address] | [phone] | | | | | [phone] | | | +--------+ + + + [...] cannot be sent through Care Everywhere.COPD FLARE (AMAN HAYDEN)documented in this encounter Medications at Time [...] [facility]. | | | | | | [...] days. | | | | | | (HCC) [...] [place] | | | | | | [address] | | | | | | | | +--------+---------+ + + + | 11/24/ | Office | Cardiology | [place], | | | 2019 | Visit | | SINDHU Erickson [address] | | | | | | [place], | | | | | | [place] [address] | | | | | | [phone] | | | | | | | [...] + | MISCELLANEOUS LAB | | | [phone] | + +---------+ + + | MISCELANIOUS LAB | | | [phone] | + +---------+ + + documented in [...] | | | | Nebulization, RT Once, [place] | | | | | | | [...] | | | | | Intravenous, ONCE, Arelis 05/23/13 at | | | | | | | 2014, For 1 dose, Mix with 2 mL | | | | | | | provided diluent to make 62.5 | | | | | | | mg/mL., | | | | | | + +-------+ +--------+---+---+ +---+---+ | | | +---+---+ documented in this encounter
--- OUTSIDE RECORDS SUMMARY | ~2019-02-28 | XMS | Encounter Summary ---
Demographics + + + | Address | [address] | | | [place] [address] | + + + | Home Phone [...] Team Providers + +------+ + | Care Mud Analysis Operator Name | Role | Phone | [...] + + | 04/12/ | [facility] | [facility] | Offenstein, | COPD exacerbation | | 2013 | Visit | PULMONARY [address] | Loreta Alonso MD | ([facility]) (Primary Dx); | | | | [address] [place], | | Sprain of chest | | | | [place] [address] | | wall; [place] | | | | [phone] | | (obstructive sleep | | | [...] perform them regularly on you r own. [address]273-[address] [facility], [address] [place] [address], [place] [address]. All rights reserve d. This information is not intended as a substitute for professional medical care. Always fo llow your healthcare professional's instructions. documented in this encounter Progress Notes Loreta London MD - 04/12/2013 9:12 AM PSTFormatting of this note might be differe nt from the original. Pulmonary Follow Up Note MD [place] Pulmonary and Critical Care [facility] [address] [place], [address] [facility] Rosario Malik is a 48 [...] and machine. She took it in to [facility] today for servicing. 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 3 tablet 0 Respiratory Therapy Supplies [facility] Please provide patient with necessary CPAP supplies ( she did not specify, okay to send order as appropriate) Diagnosis Code(s)327.23 . Length of Need 99 months. Please send order to [facility]. 1 each 0 Respiratory Therapy Supplies [facility] Change CPAP back [...] exacerbation to exacerbat ion since return from [place] without clear explanation. Factors to consider: medication [...] not been using her CPAP as m [facility] as she should per last downloads [...] made to ensure accuracy; however, inadvertent computerized paper core machine operator errors may be pre sent. documented in [...] [place] | | | | | | [id number] | | | | | | | | +--------+---------+ + + + | 11/24/ | Office | Cardiology | [place], | | | 2019 | Visit | | SINDHU Erickson [address] | | | | | | [place], | | | | | | [place] [address] | | | | | | [phone] | | | | | | | | +--------+---------+ + + + + + +--------+ + + | Name | Type | Priori | Associated Diagnoses | Order Schedule | | | | ty | | | + + +--------+ + + | Ambulating oximetry, | Respiratory | Routin | COPD exacerbation | Expected: | | clinic, | Care | e | ([facility]) | 04/12/2013, Expires: | | qualification [...] + + | Performing | Address | City/[facility] | Phone Number | | Organization | | | | + + + + + | [facility] | [address] | [place] | [phone] | | [facility] | | [address] | | | - LABORATORY | | | | + + + + + | [facility] | [address] | [place] | | | [facility] | | [address] | | | - LABORATORY | | [...]
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
--- OUTSIDE RECORDS SUMMARY | ~2019-02-28 | XMS | Encounter Summary ---
Demographics + + + | Address | [address] | | | [place] [address] | + + + | Home Phone [...] Team Providers + +------+ + | Care Life Skills Coordinator Volunteer Name | Role | Phone | + +------+ + PCP | Unavailable | + +------+ + Encounter Details +--------+ + + + + | Date | Type | Department | Care Team | Description | +--------+ + + + + | 08/25/ | [facility] | [facility] | | | | 2009 | Encounter | MED CTR XRAY [address] | | | | | | [place] | | | | | | [place] [address] | | | | | | [phone] | | | +--------+ + + + [...] [place] | | | | | | [address] | | | | | | | | +--------+---------+ + + + | 11/24/ | Office | Cardiology | [place], | | | 2020 | Visit | | SINDHU Erickson [address] | | | | | | [place], | | | | | | [place] [address] | | | | | | [phone] | | | | | | | | +--------+---------+ + + + documented as of this encounter Visit Diagnoses Not on filedocumented in this encounter"
--- OUTSIDE RECORDS SUMMARY | ~2019-02-28 | XMS | Encounter Summary ---
Demographics + + + | Address | [address] | | | [place] [address] | + + + | Home Phone [...] Team Providers + +------+ + | Care Second Grade Teacher Name | Role | Phone | [...] | Pulmonary | MD Mukul | [address] | | | | | emphysema, | [address] | [place], | | | | | unspecified | [address] | [place] [address] | | | | | emphysema | [address] | Phone: | | | | | type (HCC) | [place], [place] | [phone] | | | | | Procedures | [address] | Fax: | | | | | CT Chest wo | Phone: | [phone] | | | | | Contrast | [phone] | | | | | | | Fax: | | | | | | | [phone] | | +--------+--------+ + + + + [...] | Pulmonary | MD Mukul | [address] | | | | | emphysema, | [address] | [place], | | | | | unspecified | [place] | [place] [address] | | | | | emphysema | Jose R E | Phone: | | | | | type (HCC) | [place], [place] | [phone] | | | | | Procedures | [address] | Fax: | | | | | CT Chest wo | Phone: | [phone] | | | | | Contrast | [phone] | | | | | | | Fax: | | | | | | | [phone] | | +--------+--------+ + + + + Encounter Details +--------+ + + + + | Date | Type | Department | Care Team | Description | +--------+ + + + + | 03/05/ | Hospital [facility] | Mukul Clark MD | Pulmonary emphysema, | | 2017 | Encounter | MED [facility] [place] [address] | [address] | unspecified | | | | [place], | [place], [place] | emphysema type (HCC) | | | | [place] [address] | [address] | | | | | [phone] | | | +--------+ + + + [...] | | | | | order to [facility]. | | | | | [...] | | | | send order to [facility] | | | | | | | [facility]. | | | | | | [...] | 0 | 10/13/19 | | | [id number] | mouth as needed. | | | 16 | 7 | | -Cod [id number] MG | | | | | | [...] | | | | [address] [place] [facility] [place] | | | | | | [address] | | | | | | | | +--------+---------+ + + + | 11/24/ | Office | Cardiology | [place], | | | 2019 | Visit | | SINDHU Erickson [address] | | | | | | [place], | | | | | | [place] [address] | | | | | | [phone] | | | | | | | [...] emphysema, unspecified emphysema type (HCC). COMPARISON: | [facility] | | 11/16/2013, 02/09/2010. PROTOCOL: Axial images [...] + | [facility] | [address] | [place] | [phone] | | [facility] | | [address] | | | - IMAGING | | | | + + + + + documented in this encounter Visit Diagnoses + + | Diagnosis | + + | Pulmonary emphysema, unspecified emphysema type (HCC) | + + documented in this encounter
--- OUTSIDE RECORDS SUMMARY | ~2019-02-28 | XMS | Encounter Summary ---
Demographics + + + | Address | [address] | | | [place] [address] | + + + | Home Phone [...] Providers + +------+ + | Care Small Battery Plate Assembler Name | Role | Phone | [...] + + | 10/22/ | Office | [facility] | Andriy Weber | Interstitial | | 2015 | Visit | [address] | MD Robert [address] | cystitis (Primary | | | | [place] | [place] | Dx); Pyuria | | | | [address] | [place] [address] | | | | | [phone] | [phone] | | | | | | | [...] Action Dose Route Administered By 10/23/2015 Given 49270 Units Subcutaneous Marysol Nunes RN lidocaine 2% [...] [place] | | | | | | [address] | | | | | | | | +--------+---------+ + + + | 11/24/ | Office | Cardiology | [place], | | | 2019 | Visit | | SINDHU Erickson [address] | | | | | | [place], | | | | | | [place] [address] | | | | | | [phone] | | | | | | | [...] + | [facility] | [address] | [place] | [phone] | | [facility] | | [address] | | | - LABORATORY | | [...] [address] | [place] | [phone] | | [facility] | | [address] | | | - LABORATORY | | [...] 1.001 - 1.030 | | | | [place], | | | | | | UA, [...]
--- OUTSIDE RECORDS SUMMARY | ~2019-02-28 | XMS | Encounter Summary ---
Demographics + + + | Address | [address] | | | [place] [address] | + + + | Home Phone [...] Team Providers + +------+ + | Care Screen Tacker Name | Role | Phone | [...] Headache | Shashi Witt, | [address] | | | | | Pituitary | MD Need | [place], | | | | | tumor | updated | [place] | | | | | Procedures | address | [address] | | | | | CT Head w wo | | Phone: | | | | | Contrast | | [phone] | | | | | | | Fax: | | | | | | | [phone] | +--------+--------+ + + + + Reason for Visit +--------+ + | Reason | Comments | +--------+ + | Other | Schedule MRI | +--------+ + Encounter Details +--------+ + + + + | Date | Type | Department | Care Team | Description | +--------+ + + + + | 11/24/ | Telephone | [facility] | Aneta Rain | Other (Schedule MRI) | | 2013 | | NEUROLOGY ADRIANA | N, RN | | | | | [address], | | | | | | [address] [place] | | | | | | [place] [address] | | | | | | [phone] | | | +--------+ + + + [...] | | | | [place] | | | | | | [address] | | | | | | | | +--------+---------+ + + + | 11/24/ | Office | Cardiology | [place], | | | 2019 | Visit | | SINDHU Erickson [address] | | | | | | [place], | | | | | | [place] [address] | | | | | | [phone] | | | | | | | [...] + | MISCELLANEOUS LAB | | | [phone] | + +---------+ + + | MISCELANIOUS LAB | | | [phone] | + +---------+ + + documented in this encounter Visit Diagnoses + + | Diagnosis | + + | Headache - Primary | + + | 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
--- OUTSIDE RECORDS SUMMARY | ~2019-02-28 | XMS | Encounter Summary ---
Demographics + + + | Address | [address] | | | [place] [address] | + + + | Home Phone [...] Providers + +------+ + | Care Stone Repairer Name | Role | Phone | + +------+ + | Juan Cherry DO | PCP | | + +------+ + Encounter Details +--------+ + + + + | Date | Type | Department | Care Team | Description | +--------+ + + + + | 09/09/ | Hospital | [facility] | Conversion | Pain | | 2015 | Encounter | CONVERSION [address] | Transaction, | | | | | [address] | Provider Unknown | | | | | [place], [place] | [phone] | | | | | [address] | | | | | | [phone] | | | +--------+ + + + [...] | | | | [place] | | | | | | [address] | | | | | | | | +--------+---------+ + + + | 11/24/ | Office | Cardiology | [place], | | | 2019 | Visit | | SINDHU Erickson [address] | | | | | | [place], | | | | | | [place] [address] | | | | | | [phone] | | | | | | | [...]
--- OUTSIDE RECORDS SUMMARY | ~2019-02-28 | XMS | Encounter Summary ---
Demographics + + + | Address | [address] | | | [place] [address] | + + + | Home Phone [...] Providers + +------+ + | Care Machine Grainer Name | Role | Phone | + [...] + + | 11/11/ | Telephone | [facility] | Shashi Segovia | Results | | 2013 | | NEUROLOGY ADRIANA | MD Miryam Need updated | | | | | [address], | address | | | | | [address] [place] | | | | | | [place] [address] | | | | | | [phone] | | | +--------+ + + + [...] [place] | | | | | | [address] | | | | | | | | +--------+---------+ + + + | 11/24/ | Office | Cardiology | [place], | | | 2019 | Visit | | SINDHU Erickson [address] | | | | | | [place], | | | | | | [place] [address] | | | | | | [phone] | | | | | | | | +--------+---------+ + + + documented as of this encounter Visit Diagnoses Not on filedocumented in this encounter"
--- OUTSIDE RECORDS SUMMARY | ~2019-02-28 | XMS | Encounter Summary ---
Demographics + + + | Address | [address] | | | [place] [address] | + + + | Home Phone [...] Providers + +------+ + | Care Color Maker Formulator Name | Role | Phone | + [...] | (obstructive | [address] | [employer] | | | | | sleep | [place] | [place], | | | | | apnea) | [place] | [place] [address] | | | | | J44.9 | [address] | Phone: | | | | | (ICD-10-CM) | Phone: | [phone] | | | | | - 496 | [phone] | Fax: | | | | | (ICD-9-CM) - | Fax: | [phone] | | | | | Chronic | [phone] | | | | | | obstructive | | | | | | | pulmonary | | | | | | | disease, | | | | | | | unspecified | | | | | | | COPD type | | | | | | | (HCC | | | | | | | Procedures | | | | | | | LA POLYSOM | | | | | | | 6/>YRS SLEEP | | | | | | | W/CPAP 4/> | | | | | | | ADDL ALESSIA | | | | | | | ATTND LA | | | | | | | [...] + + | 04/28/ | Hospital | [facility] | Meghan Garcia MD | GARRY (obstructive | | 2019 - | Encounter | MED CTR SLEEP | [address] [facility] | sleep apnea); | | | | CENTER [address] | [place] | Chronic obstructive | | 04/29/ | | [place] | [address] | pulmonary disease, | | 2019 | | [address] | | unspecified COPD | | | | [phone] | | type (HCC) | +--------+ + [...] [place] | | | | | | [address] | | | | | | | | +--------+---------+ + + + | 11/24/ | Office | Cardiology | [place], | | | 2019 | Visit | | SINDHU Erickson [address] | | | | | | [place], | | | | | | [place] [address] | | | | | | [phone] | | | | | | | [...] [facility] | | | [place] [address] Positive Airway | | | Pressure Titration [...] machine. She has tried to get her POWWOW to add the | | | connection [...] her COPD through her | | | cathode ray tube assembler.She says since she stopped using her bilevel [...] reviewed the notes from Dr. Alarcon in [place], [place]. | | | It indicates that [...] have | | | been created with Ambrx voice recognition software. Occasional | | | [...] this chart may have been created with Ambrx voice | | |recognition software. Occasional wrong-word [...] PST [facility] | | [place], [place] [address]Bcwlflqt Airway Pressure Titration | | Report on [...] for her COPD | | through her cathode ray tube assembler.She says since she stopped using her bilevel [...] reviewed the notes from Dr. Alarcon in [place], [place]. It | | indicates that patient [...] may have been created with | | Ambrx voice recognition software. Occasional wrong-word or | [...]
--- OUTSIDE RECORDS SUMMARY | ~2019-02-28 | XMS | Encounter Summary ---
Demographics + + + | Address | [address] | | | [place] [address] | + + + | Home Phone [...] Providers + +------+ + | Care Strategic Marketing Manager Name | Role | Phone [...] + + | 03/25/ | Office | [facility] | Daryl Hargrove | Diverticulitis of | | 2014 | Visit | CARE [address] | Ernie Sanabria MD | large intestine | | | | [place], [place] | [address] | without perforation | | | | [address] | [place] | or abscess without | | | | [phone] | [address] | bleeding (Primary | | | | [...] [place] | | | | | | [id number] | | | | | | | | +--------+---------+ + + + | 11/24/ | Office | Cardiology | [place], | | | 2019 | Visit | | SINDHU Erickson [address] | | | | | | [place] | | | | | | [place] [address] | | | | | | [phone] | | | | | | | [...] 1.001 - 1.030 | | | | [place], | | | | | | UA, [...]
--- OUTSIDE RECORDS SUMMARY | ~2019-02-28 | XMS | Encounter Summary ---
Demographics + + + | Address | [address] | | | [place] [address] | + + + | Home Phone [...] Team Providers + +------+ + | Care Sugar Cane Planter Name | Role | Phone | + [...] Groin pain, | MD Jared | [address] | | | | | right Hx | [address] | [place], | | | | | of coronary | [address] | [place] [address] | | | | | angiogram | [place], | Phone: | | | | | Peritoneal | [place] [address] | [phone] | | | | | bleeding | Phone: | Fax: | | | | | Procedures | [phone] | [phone] | | | | | CT Abdomen | Fax: | | | | | | Pelvis wo | [phone] | | | | | | Contrast [...] + | 03/07/ | Telephone | [facility] | Sharonda Delmycaitie, | Other ([facility] | | 2015 | | CARDIOLOGY [address] | MD [address] | painful) | | | | [place], | [place], | | | | | [place] [address] | [place] [address] | | | | | [phone] | [phone] | | | | | | | [...] [place] | | | | | | [address] | | | | | | | | +--------+---------+ + + + | 11/24/ | Office | Cardiology | [place], | | | 2019 | Visit | | SINDHU Erickson [address] | | | | | | [place], | | | | | | [place] [address] | | | | | | [phone] | | | | | | | [...] + | MISCELLANEOUS LAB | | | [phone] | + +---------+ + + | MISCELANIOUS LAB | | | [phone] | + +---------+ + + documented in [...]
--- OUTSIDE RECORDS SUMMARY | ~2019-02-28 | XMS | Encounter Summary ---
Demographics + + + | Address | [address] | | | [place] [address] | + + + | Home Phone [...] + +------+ + | Care Junior Programmer Name | Role | Phone | + +------+ + | Juan Cherry DO | PCP | | + +------+ + Encounter Details +--------+---------+ + + + | Date | Type | Department | Care Team | Description | +--------+---------+ + + + | 02/28/ | Surgery | [facility] | Jared Mcdonough, | [facility] with Radial | | 2014 | | MED CTR CV INTRA OP | MD [address] | approach | | | | [address] | [address] [place], | | | | | [place], [place] | [place] [address] | | | | | [address] | [phone] | | | | | [phone] | | | +--------+---------+ + + + [...] | | | | | order to [facility]. | | | | | + [...] | | | | send order to [facility] | | | | | [...] | | | | | | [place] [address] | | | | | | [phone] | | | | | | | [...] RECORD NUMBER: | MEDICAL CENTER | | [id number] DATE OF PROCEDURE: 02/28/2014 ADVANCED PRACTICE PSYCHIATRIC NURSE: | - IMAGING | | Jared Mcdonough [...] Malik, (1965) OF | | PROCEDURE: 02/28/2014PRIMARY ASSOCIATE PROFESSOR OF RADIOLOGY: Jared Mcdonough MD PROCEDURES | | PERFORMED:Coronary [...] [address] | [place] | [phone] | | [facility] | | [address] | | | - IMAGING | | [...] | 0.94 | 0.60 - 1.30 | [facility] | | | | | mg/dL | [facility] | | | | | | MEDICAL | | | | | | CENTER - | | | | | | LABORATORY | | + + + + + + | eGFR if not | >60Comment: GLOMERULAR | >=60 | [facility] | | | | FILTRATION | mL/min/1.73m2 | [facility] | | | [place] | RATE,ESTIMATED | | MEDICAL | | | | mL/min/1.98i8Nfmj than | | CENTER - | | [...] + | [facility] | [address] | [place] | [phone] | | [facility] | | [address] | | | - LABORATORY | | | | + + + + + | [facility] | [address] | [place], [place] | | | [facility] | | [address] | | | - LABORATORY | | [...]
--- OUTSIDE RECORDS SUMMARY | ~2019-02-28 | XMS | Encounter Summary ---
Demographics + + + | Address | [address] | | | [place] [address] | + + + | Home Phone [...] Providers + +------+ + | Care Scale Technician Name | Role | Phone | [...] | | | | | pulmonary | [address] | [address] | | | | | disease, | [place], | [place], [place] | | | | | unspecified | [place] [address] | [address] | | | | | COPD type | Phone: | Phone: | | | | | ([facility]) | [phone] | [phone] | | | | | | Fax: | Fax: | | | | | | [phone] | [phone] | +--------+ + + + + + Encounter Details +--------+ + + + + | Date | Type | Department | Care Team | Description | +--------+ + + + + | 02/03/ | Orders Only | [facility] [place] | Jared Mcdonough, | Chronic obstructive | | 2015 | | CARDIOLOGY [address] | [address] | pulmonary disease, | | | | [place], | [place], | unspecified COPD | | | | [place] [address] | [place] [id number] | type (HCC) (Primary | | | | [phone] | [phone] | Dx) | | | | | [...] [place] | | | | | | [address] | | | | | | | | +--------+---------+ + + + | 11/24/ | Office | Cardiology | [place], | | | 2019 | Visit | | SINDHU Erickson [address] | | | | | | [place], | | | | | | [place] [address] | | | | | | [phone] | | | | | | | | +--------+---------+ + + + + + +--------+ + + | Name | Type | Priori | Associated Diagnoses | Order Schedule | | | | ty | | | + + +--------+ + + | AMB REFERRAL TO [facility] | Outpatient | Routin | Chronic | [...]
--- OUTSIDE RECORDS SUMMARY | ~2019-02-28 | XMS | Encounter Summary ---
Demographics + + + | Address | [address] | | | [place] [address] | + + + | Home Phone [...] Team Providers + +------+ + | Care Form Maker Name | Role | Phone | [...] sleep | MD [address] | | | | | apnea) | [address] | [place], | | | | | [place] | [place], | [place] [address] | | | | | sleep apnea | [place] [address] | Phone: | | | | | | | [phone] | | | | | | | Fax: | | | | | | | [phone] | +--------+ + + + + + Encounter Details +--------+---------+ + + + | Date | Type | Department | Care Team | Description | +--------+---------+ + + + | 04/07/ | Office | [facility] | Maxim Delgado PA | GARRY on CPAP (Primary | | 2012 | Visit | SLEEP DISORDER [address] | [address] | Dx); Organic | | | | [address] [place] | [place], [place] | insomnia, | | | | [place] [address] | [address] | unspecified | | | | [phone] | | | +--------+---------+ + + + [...] S9 with full face mask obtained from: [facility] pressure is: 8-12 cm 95%: [...] She went to get that mask from [facility], but it has been discontinued. [...] months, sooner prn. Fifteen minutes were spent [id number], wi th the majority of time spent [...] [place] | | | | | | [address] | | | | | | | | +--------+---------+ + + + | 11/24/ | Office | Cardiology | [place], | | | 2019 | Visit | | SINDHU Erickson [address] | | | | | | [place] | | | | | | [place] [address] | | | | | | [phone] | | | | | | | | +--------+---------+ + + + documented as of this encounter Visit Diagnoses + + | Diagnosis | + + | GARRY on CPAP - Primary Obstructive sleep apnea (adult) (pediatric) | + + | Organic insomnia, unspecified | + + documented in this encounter"
--- OUTSIDE RECORDS SUMMARY | ~2019-02-28 | XMS | Encounter Summary ---
Demographics + + + | Address | [address] | | | [place] [address] | + + + | Home Phone [...] Providers + +------+ + | Care Pharmacy Sales Assistant Name | Role | Phone [...] emphysema type (HCC) | | | | [place], | [address] | (Primary Dx) | | | | [place] [address] | | | | | | [phone] | | | +--------+ + + + [...] [place] | | | | | | [address] | | | | | | | | +--------+---------+ + + + | 11/24/ | Office | Cardiology | [place], | | | 2019 | Visit | | SINDHU Erickson [address] | | | | | | [place], | | | | | | [place] [address] | | | | | | [phone] | | | | | | | [...] | | | [facility] | | |IMPRESSION: Spirometry is consistent with [...] Kevin Sandoval MD 02/29/2016 6:30 | | |[facility] | | + + + documented in this encounter Visit Diagnoses + + | Diagnosis | + + | Pulmonary emphysema, unspecified emphysema type (HCC) - Primary | + + documented in this encounter"
--- OUTSIDE RECORDS SUMMARY | ~2019-02-28 | XMS | Encounter Summary ---
Demographics + + + | Address | [address] | | | [place] [address] | + + + | Home Phone [...] Providers + +------+ + | Care Service Observer Name | Role | Phone | [...] + | 05/01/ | Telephone | [facility] | Lencho Goss MD | Other | | 2015 | | GASTROENTEROLOGY | [address], [place] | | | | | [address] [place] | [address] [place], [place] | | | | | [address] [place], [place] | [address] | | | | | [address] | | | | | | [phone] | | | +--------+ + + + [...] [place] | | | | | | [address] | | | | | | | | +--------+---------+ + + + | 11/24/ | Office | Cardiology | [place], | | | 2019 | Visit | | SINDHU Erickson [address] | | | | | | [place], | | | | | | [place] [address] | | | | | | [phone] | | | | | | | | +--------+---------+ + + + documented as of this encounter Visit Diagnoses Not on filedocumented in this encounter"
--- OUTSIDE RECORDS SUMMARY | ~2019-02-28 | XMS | Encounter Summary ---
Demographics + + + | Address | [address] | | | [place] [address] | + + + | Home Phone [...] Team Providers + +------+ + | Care Diabetes Clinical Manager Name | Role | Phone | + +------+ + PCP | Unavailable | + +------+ + Encounter Details +--------+ + + + + | Date | Type | Department | Care Team | Description | +--------+ + + + + | 09/22/ | Hospital | [facility] | Rocky Rodriguez | | | 2008 | Encounter | MED CTR EMERGENCY | MD Kyler [address] | | | | | CENTER [address] | [address] [facility] | | | | | [place], [place] | [place] [address] | | | | | [address] | [phone] | | | | | [phone] | | | +--------+ + + + [...] [place] | | | | | | [address] | | | | | | | | +--------+---------+ + + + | 11/24/ | Office | Cardiology | [place], | | | 2019 | Visit | | SINDHU Erickson [address] | | | | | | [place] | | | | | | [place] [address] | | | | | | [phone] | | | | | | | | +--------+---------+ + + + documented as of this encounter Visit Diagnoses Not on filedocumented in this encounter"
--- OUTSIDE RECORDS SUMMARY | ~2019-02-28 | XMS | Encounter Summary ---
Demographics + + + | Address | [address] | | | [place] [address] | + + + | Home Phone [...] Team Providers + +------+ + | Care Capsule Filler Name | Role | Phone | [...] Rehabilitatio | headache | MD Need | [address] | | | | n | 346.90 | updated | [place], | | | | | (ICD-9-CM) - | address | [place] [address] | | | | | Migraine | | Phone: | | | | | headache | | [phone] | | | | | Procedures | | Fax: | | | | | pt eval | | [phone] | | | | | (tosin) | [...] Need | | | | | | ([facility]) | updated | | | [...] Pituitary | Shashi Witt, | [address] | | | | | adenoma | MD Need | [place], | | | | | ([facility]) | updated | [place] | | | | | Procedures | address | [address] | | | | | MRI Brain w | | Phone: | | | | | wo Contrast | | [phone] | | | | | | | Fax: | | | | | | | [phone] | +--------+--------+ + + + + Reason [...] Dx); Migraine | | | | [address] [facility], | address | headache; 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 Do not take your medicine more often than directed. Talk to your sole cutter regarding the use of this medicine [...] report to your doctor or health home care consultant as soon as p ossible: allergic reactions [...] (report to your doctor or health home care consultant if they continue or are bothersome): drowsiness dry mouth feeling warm, flushing, or redness of the face headache muscle cramps, pain nausea, vomiting unusually weak or tired This list may not describe all possible side effects. Call your doctor for medical advice a bout side effects. You may report side effects to FDA at 6-322-NQB-2526. Where should I keep my medicine? Keep [...] [facility], [address] [place] [address] Neurology Outpatient ProgressNote Patient ID: Ms. Malik [...] ([facility]) 10/28/2012 Overview: [facility] [...] Please send order to [facility]. Respiratory Therapy Supplies MISC (Taking) Change CPAP back to 11-14 cm H2O. All necessar y supplies. No oxygen bleed in. Diagnosis Code(s)327.23. Length of Need: Lifetime. Please se nd order to [facility]. This is not [...] pituitary lesion, [facility]. 1) Headaches: [...] stud. - Patient no longer followed at [facility] endocrine. Will refer to local cap inspector. Follow up in neurology in 1 month [...] | | | | | [place] [address] | | | | | | [phone] | | | | | | | [...] - AMB | Referral | e | ([facility]) | | | Referral | | | [...] of 10 mL of Gadavist. Dedicated small zdshj-gj-jqdv | | | thin section imaging through [...] 10 mL ofGadavist. | | Dedicated small tihev-bo-xaeq thin section imaging through thepituitary region before [...] ST. | [address] | [place] | [phone] | | [facility] | | [address] | | | - IMAGING | | [...]
--- OUTSIDE RECORDS SUMMARY | ~2019-02-28 | XMS | Encounter Summary ---
Demographics + + + | Address | [address] | | | [place] [address] | + + + | Home Phone [...] Providers + +------+ + | Care Supervisor Compressed Yeast Name | Role | Phone | + +------+ + PCP | Unavailable | + +------+ + Encounter Details +--------+ + + + + | Date | Type | Department | Care Team | Description | +--------+ + + + + | 10/06/ | [facility] | [facility] | | | | 2008 | Encounter | MED CTR LABORATORY | | | | | | [address] [place] | | | | | | [place] | | | | | | [address] | | | | | | [phone] | | | +--------+ + + + [...] [place] | | | | | | [address] | | | | | | | | +--------+---------+ + + + | 11/24/ | Office | Cardiology | [place], | | | 2020 | Visit | | SINDHU Erickson [address] | | | | | | [place], | | | | | | [place] [address] | | | | | | [phone] | | | | | | | | +--------+---------+ + + + documented as of this encounter Visit Diagnoses Not on filedocumented in this encounter"
--- OUTSIDE RECORDS SUMMARY | ~2019-02-28 | XMS | Encounter Summary ---
Demographics + + + | Address | [address] | | | [place] [address] | + + + | Home Phone [...] Team Providers + +------+ + | Care Museum Preparator Name | Role | Phone | + [...] Provider Unknown | | | | | [place], [place] | [phone] | | | | | [address] | | | | | | [phone] | | | +--------+ + + + [...] | | | | | order to [facility]. | | | | | [...] | | | | [place] | | | | | | [address] | | | | | | | | +--------+---------+ + + + | 11/24/ | Office | Cardiology | [place], | | | 2019 | Visit | | SINDHU Erickson [address] | | | | | | [place], | | | | | | [place] [address] | | | | | | [phone] | | | | | | | [...]
--- OUTSIDE RECORDS SUMMARY | ~2019-02-28 | XMS | Encounter Summary ---
Demographics + + + | Address | [address] | | | [place] [address] | + + + | Home Phone [...] Team Providers + +------+ + | Care Associate Software Development Engineer Name | Role | Phone | [...] | | | | | [place] | [place] | | | | | [address] | [address] | | | | | [phone] | | | +--------+ + + + [...] for evaluation. [facility]rine [facility] since it was positive for nitrites. documented [...] | | | | | [place] [address] | | | | | | [phone] | | | | | | | [...] [address] | [place] | [phone] | | [facility] | | [address] | | | - LABORATORY | | | | + + + + + POCT Urinalysis Dipstick Automated (07/28/2017 2:51 PM PDT) + + + + + + | Component | Value | Ref Range | Performed | Pathologist | | | | | At | Signature | + + + + + + | Color, UA, | Ralls (A) | Yellow, Light | | | [...] 1.001 - 1.030 | | | | Milo, | | | | | | UA, [...]
--- OUTSIDE RECORDS SUMMARY | ~2019-02-28 | XMS | Encounter Summary ---
Demographics + + + | Address | [address] | | | [place] [address] | + + + | Home Phone [...] Team Providers + +------+ + | Care Certification And Selection Specialist Name | Role | Phone | [...] [address] | call) | | | | [place], | [place] | | | | | [place] [address] | [address] | | | | | [phone] | | | +--------+ + + + [...] [place] | | | | | | [id number] | | | | | | | | +--------+---------+ + + + | 11/24/ | Office | Cardiology | [place], | | | 2019 | Visit | | SINDHU Erickson [address] | | | | | | [place] | | | | | | [place] [address] | | | | | | [phone] | | | | | | | | +--------+---------+ + + + documented as of this encounter Visit Diagnoses Not on filedocumented in this encounter"
--- OUTSIDE RECORDS SUMMARY | ~2019-02-28 | XMS | Encounter Summary ---
Demographics + + + | Address | [address] | | | [place] [address] | + + + | Home Phone [...] Providers + +------+ + | Care Occupational Therapist Assistants Name | Role | Phone | + [...] + + | 07/18/ | Emergency | [facility] | Ozzy Aponte | Laceration of left | | 2013 | | [facility] CTR EM[facility]Y | Ozzie Kebede MD | upper arm without | | | | CENTER [address] | [address] | foreign body, | | | | [place] | [place] | initial encounter | | | | [address] | [address] | (Primary Dx) | | | | [phone] | | | +--------+ + + + [...] [facility]. | | | | | | | [...] [place] | | | | | | 212[address] | | | | | | | | +--------+---------+ + + + | 11/24/ | Office | Cardiology | [place], | | | 2019 | Visit | | SINDHU Erickson [address] | | | | | | [place], | | | | | | [place] [address] | | | | | | [phone] | | | | | | | [...] -------- | | | ---- 07/18/2013 12:04 [place] | | | [facility] Emergency cut on Lft arm; | | | 07/14/2013 00:15 [facility] | | | Emergency Shortness of Breath; | | | | | | Chronic obstructive asthma with (acute) exacerbation; | | | 06/19/2013 21:06 [facility] | | | Emergency Obstructive chronic bronchitis with (acute) | | | exacerbation; | | | Shortness of | | | Breath; | | | diff breathing; | | | 06/19/2013 11:03 [facility] | | | Emergency COPD exasperation; 05/23/2013 19:52 [place] | | | [facility] Emergency Obstructive chronic | | | bronchitis with (acute) exacerbation; | | | | | | Obstructive chronic bronchitis with (acute) exacerbation; | | | | | | sob; | | | | | | Shortness of Breath; VISIT COUNT (1 YR.) Visits | | | Medicaid NE Dx Location ------ | | | --------- 11 0 [facility]. | | | [facility] 11 0 Total | | | Note: Visits indicate total known visits. Medicaid [place] Dx are the | | | number of primary diagnoses on the [facility]'s non-emergent dx list. | | | [...] | | + +--------+ +---------+------+ + | opbkzrc-trzmokfhor-bowgedynx | Given | 07/19/19 | 0.5 mLs [...]
--- OUTSIDE RECORDS SUMMARY | ~2019-02-28 | XMS | Encounter Summary ---
Demographics + + + | Address | [address] | | | [place] [address] | + + + | Home Phone [...] Team Providers + +------+ + | Care Rehabilitation Inspector Name | Role | Phone | + +------+ + PCP | Unavailable | + +------+ + Encounter Details +--------+ + + + + | Date | Type | Department | Care Team | Description | +--------+ + + + + | 02/09/ | Hospital | [facility] | Alexi Guaman, | | | 2009 | Encounter | MED CTR EMERGENCY | [address] | | | | | CENTRAL [address] | [place] | | | | | [place] | [address] | | | | | [address] | | | | | | [phone] | | | +--------+ + + + [...] [place] | | | | | | [address] | | | | | | | | +--------+---------+ + + + | 11/24/ | Office | Cardiology | [place], | | | 2019 | Visit | | SINDHU Erickson [address] | | | | | | [place], | | | | | | [place] [address] | | | | | | [phone] | | | | | | | | +--------+---------+ + + + documented as of this encounter Visit Diagnoses Not on filedocumented in this encounter"
--- OUTSIDE RECORDS SUMMARY | ~2019-02-28 | XMS | Encounter Summary ---
Demographics + + + | Address | [address] | | | [place] [address] | + + + | Home Phone [...] Team Providers + +------+ + | Care Naturopathic Oncology Provider Name | Role | Phone | [...] | | | | CENTER [address] | [address] [place] | carried out due to | | | | [place] | [place] [address] | patient leaving | | | | [address] | [phone] | prior to being seen | | | | [phone] | | by health care | | [...] [place] | | | | | | [address] | | | | | | | | +--------+---------+ + + + | 11/24/ | Office | Cardiology | [place], | | | 2019 | Visit | | SINDHU Erickson [address] | | | | | | [place], | | | | | | [place] [address] | | | | | | [phone] | | | | | | | [...] W?MRN: | | | | | | [id number] | | | [id number] | | | his | | | [...]
--- OUTSIDE RECORDS SUMMARY | ~2019-02-28 | XMS | Encounter Summary ---
Demographics + + + | Address | [address] | | | [place] [address] | + + + | Home Phone [...] Team Providers + +------+ + | Care Clockmaker Apprentice Name | Role | Phone | [...] + + | 11/06/ | Office | [facility] | [place], | Palpitations | | 2017 | Visit | CARDIOLOGY [address] | SINDHU Erickson [address] | (Primary Dx); | | | | [place], | [place], | Paroxysmal atrial | | | | [place] [address] | [place] [address] | tachycardia (HCC); | | | | [phone] | [phone] | Chest pain, | | | | [...] 1965: AGE: 51 y.o. PRIMARY CARE: Juan Cehrry DO OUTPATIENT FOLLOW UP VISIT Date of [...] takes this da rigoberto Respiratory Therapy Supplies [facility] Please provide patient with necessary CPAP supplies ( she did not specify, okay to send order as appropriate) Diagnosis Code(s)327.23 . Length of Need 99 months. Please send order to [facility]. 1 each 0 Respiratory Therapy Supplies [facility] Change CPAP back to 11-14 cm H2O. All necessary suppl ies. No oxygen bleed in. Diagnosis Code(s)327.23. Length of Need: Lifetime. Please send orde r to [facility]. This is not a [...] has shortened Confirmed by CLAY SANCHEZ MD ([id number]) on 10/16/2016 4:31:30 PM LAB RESULTS reviewed during visit today primarily from [facility]: LIPID Lab Results Component Value [...] PLTEX 370 07/11/2014 I reviewed records from [facility] for Holter report on 10/18/2016 which [...] She was seen at the ED of [facility] 3 weeks ago and again [...] and v entricular function done at the [facility]. LVEF 78%. C. Holter Monitor [...] this chart may have been created with RingCaptcha voice recognition software. Occasi onal wrong-word or [...] | | | | [place] | | | | | | [address] | | | | | | | | +--------+---------+ + + + | 11/24/ | Office | Cardiology | [place], | | | 2019 | Visit | | SINDHU Erickson [address] | | | | | | [place], | | | | | | [place] [address] | | | | | | [phone] | | | | | | | [...]
--- OUTSIDE RECORDS SUMMARY | ~2019-02-28 | XMS | Encounter Summary ---
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 I reviewed the notes from Dr Chris Alarcon in [place], [place].It indicates that patient had CPAP intolerance [...] day for h er COPD through her automation qtp tester. We performed a CPAP titration study on [...] time spent below SpO2 of 90% was0%.Transcutaneous ET6ioayse 35-37mmHg during supine wake,a nd remained between [...] higher. Patient continued to have awakenings at [facility], and also excessive daytime sleepiness. 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 REVELANT MEDICATIONS: Gabapentin, prednisone, tramadol, Ziprasidone. SUBJECTIVE: The patient rated sleep quality during sleep study as usual. Fudger note: Patient continues to struggle with mask [...] Leak. I s ent a prescription to [place] for nasal mask and chin strap. I also discussed the impact of the sleep deprivation on her health, and excessive daytime s leepiness. She has minimal physical activity. She does some chores, and then she watches T Payveris or is on her computer from 3 [...] book, or do some g uided meditation (Why Not Give Back) in part of her living room that [...] [place] | | | | | | [address] | | | | | | | | +--------+---------+ + + + | 11/24/ | Office | Cardiology | [place], | | | 2019 | Visit | | SINDHU Erickson [address] | | | | | | [place], | | | | | | [place] [address] | | | | | | [phone] | | | | | | | [...]
--- OUTSIDE RECORDS SUMMARY | ~2019-02-28 | XMS | Encounter Summary ---
Demographics + + + | Address | [address] | | | [place] [address] | + + + | Home Phone [...] Providers + +------+ + | Care Chief Librarian Circulation Department Name | Role | Phone | + [...] + + | 04/16/ | Emergency | [facility] | Sonny Cesar MD | Epigastric pain | | 2016 | | MED CTR EMERGENCY | [address] | (Primary Dx); Chest | | | | CENTER [address] | [place] | pain, unspecified | | | | [place], [place] | [address] | chest pain type | | | | [address] | | | | | | [phone] | | | +--------+ + + + [...] | | | | | | [facility]. | | | | | | [...] [place] | | | | | | [address] | | | | | | | | +--------+---------+ + + + | 11/24/ | Office | Cardiology | [place], | | | 2020 | Visit | | SINDHU Erickson [address] | | | | | | [place], | | | | | | [place] [address] | | | | | | [phone] | | | | | | | [...] | | | | | | [employer] | | | | | [...] [address] | [place] | [phone] | | [facility] | | [address] | | | - LABORATORY | | [...] + | [facility] | [address] | [place] | [phone] | | [facility] | | [address] | | | - LABORATORY | | [...] mL/min/1.73m2 | Chris BERNA | | | COLOMBIAN | RATE,ESTIMATED | | MEDICAL | | | | mL/min/1.99f9Qmig than | | CENTER - | | [...] [address] | [place] | [phone] | | [facility] | | [address] | | | - LABORATORY | | [...] + | [facility] | [address] | [place] | [phone] | | [facility] | | [address] | | | - LABORATORY | | [...] | | | | RAFA WELLS MD ([id number]) | | | | | | on [...] | | | | | Intravenous, ONCE, [facility] 04/16/15 at | | PM PST | | | | | 1600, For 1 dose | | | | | | + +-------+ +--------+---+---+ +---+---+ | | | +---+---+ + +-------+ +--------+---+---+ | HYDROmorphone (DILAUDID) | Given | 04/16/19 | 0.5 mg | | | | injection 0.5 mg 0.5 mg, | | 16 4:45 | | | | | Intravenous, ONCE, [facility] 04/16/15 at | | PM PST | [...]
--- OUTSIDE RECORDS SUMMARY | ~2019-02-28 | XMS | Encounter Summary ---
Demographics + + + | Address | [address] | | | [place] [address] | + + + | Home Phone [...] Team Providers + +------+ + | Care Natural Science Curator Name | Role | Phone | + [...] + + | 10/18/ | Telephone | [facility] | Kevin Sandoval, | Other (increased | | 2013 | | PULMONARY [address] | MD [address] | shortness of breath) | | | | [place], | [place], [place] | | | | | [place] [address] | [address] | | | | | [phone] | | | +--------+ + + + [...] [place] | | | | | | [address] | | | | | | | | +--------+---------+ + + + | 11/24/ | Office | Cardiology | [place], | | | 2020 | Visit | | SINDHU Erickson [address] | | | | | | [place], | | | | | | [place] [address] | | | | | | [phone] | | | | | | | | +--------+---------+ + + + documented as of this encounter Visit Diagnoses Not on filedocumented in this encounter"
--- OUTSIDE RECORDS SUMMARY | ~2019-02-28 | XMS | Encounter Summary ---
Demographics + + + | Address | [address] | | | [place] [address] | + + + | Home Phone [...] Providers + +------+ + | Care Maintenance Inspector Name | Role | Phone | [...] | | | | | [address] [place] | | | | | | [place] [address] | | | | | | [phone] | | | +--------+ + + + [...] Weber, PT - 05/27/2013 3:22 [facility] [place] [address] [facility] [address] Cancellation/No Show Date: 05/27/2013 Patient Information Patient [...] [place] | | | | | | [id number] | | | | | | | | +--------+---------+ + + + | 11/24/ | Office | Cardiology | [place] | | | 2019 | Visit | | SINDHU Erickson [address] | | | | | | [place] | | | | | | [place] [address] | | | | | | [phone] | | | | | | | | +--------+---------+ + + + documented as of this encounter Visit Diagnoses Not on filedocumented in this encounter"
--- OUTSIDE RECORDS SUMMARY | ~2019-02-28 | XMS | Encounter Summary ---
Demographics + + + | Address | [address] | | | [place] [address] | + + + | Home Phone [...] + +------+ + | Care Traffic Control Flagger Name | Role | Phone | + [...] + | 10/07/ | Telephone | [facility] | Sandoval Kevin, | Other | | 2014 | | PULMONARY [address] | MD [address] | | | | | [place], | [place], [place] | | | | | [place] [address] | [address] | | | | | [phone] | | | +--------+ + + + [...] [place] | | | | | | [address] | | | | | | | | +--------+---------+ + + + | 11/24/ | Office | Cardiology | [place], | | | 2019 | Visit | | SINDHU Erickson [address] | | | | | | [place] | | | | | | [place] [address] | | | | | | [phone] | | | | | | | | +--------+---------+ + + + documented as of this encounter Visit Diagnoses Not on filedocumented in this encounter"
--- OUTSIDE RECORDS SUMMARY | ~2019-02-28 | XMS | Encounter Summary ---
Demographics + + + | Address | [address] | | | [place] [address] | + + + | Home Phone [...] Providers + +------+ + | Care It Application Administrator Name | Role | Phone | [...] | | | | unspecified | | [address] | | | | | laterality | | Phone: | | | | | Primary | | [phone] | | | | | localized | | Fax: | | | | | osteoarthros | | [phone] | | | | | is of hand, | | | | | | | unspecified | | | | | | | laterality | | | | | | | [[id number] | | | | | | | Procedures | | | | | | | MS REPAIR | | | | | | [...] tendon | | | | [address] | [address] [place], [place] | interposition | | | | [place], [place] | [address] | | | | | [address] | [phone] | | | | | [phone] | | | +--------+---------+ + + + [...] what medicines and drugsyou take. This includes vtcr-dex-fok nter medicines, herbs, supplements, alcohol or other [...] adam p you safe. Date Last Reviewed: 01/25/201619993310-5088 [employer]. [address] [place] [address]. All righ ts reserved. This information is not intended as a substitute for professional medical care. Always follow your healthcare professional's instructions. [facility] Post-op Instructions - Thumb Surgery The following instructions are meant to guide you following surgery until your first post-o perative visit 7-12 days later. For any problems or questions, please call our office at [phone], Friday through Friday, 9:00 am - 5:00 [...] that you may have received from the [facility], advice from friends, family members, ecclesiastical leaders, grocery store clerks, fox lee, Anu, Dr. Jain, Dr. Weinstein, sports heroes, etc. If unsure, please call our office. Thank you, Jesus Brady D.O. [facility] [address] [place] [address] Your post op appointment is scheduled for Friday06/29/18 at 9:15am. Please check in at 8:45 am for X-rays at the [facility]. documented in this encounter Medications at Time [...] [place] | | | | | | [address] | | | | | | | | +--------+---------+ + + + | 11/24/ | Office | Cardiology | [place], | | | 2019 | Visit | | SINDHU Erickson [address] | | | | | | [place], | | | | | | [place] [address] | | | | | | [phone] | | | | | | | [...] [address] | [place] | [phone] | | [facility] | | [address] | | | - LABORATORY | | [...]
--- OUTSIDE RECORDS SUMMARY | ~2019-02-28 | XMS | Encounter Summary ---
Demographics + + + | Address | [address] | | | [place] [address] | + + + | Home Phone [...] Providers + +------+ + | Care Heavy Truck Driver Name | Role | Phone | + +------+ + | Juan Cherry DO | PCP | | + +------+ + Encounter Details +--------+ + + + + | Date | Type | Department | Care Team | Description | +--------+ + + + + | 09/09/ | Hospital | [facility] | Conversion | Pain | | 2015 | Encounter | CONVERSION DE[address] | Transaction, | | | | | [address] | Provider Unknown | | | | | [place], [place] | [phone] | | | | | [address] | | | | | | [phone] | | | +--------+ + + + [...] | | | | | | ([facility]LY [facility]) | | | | [...] | | | | [place] | | | | | | 8[address] | | | | | | | | +--------+---------+ + + + | 11/24/ | Office | Cardiology | [place], | | | 2019 | Visit | | SINDHU Erickson [address] | | | | | | [place], | | | | | | [place] [address] | | | | | | [phone] | | | | | | | [...]
--- OUTSIDE RECORDS SUMMARY | ~2019-02-28 | XMS | Encounter Summary ---
Demographics + + + | Address | [address] | | | [place] [address] | + + + | Home Phone [...] Providers + +------+ + | Care Board Runner Name | Role | Phone | [...] + + | 09/13/ | Emergency | [facility] | Alexi Guaman, | Tachycardia (Primary | | 2018 | | MED CTR EMERGENCY | MD [address] | Dx); Hypokalemia | | | | CENTER [address] | [place] | | | | | [place] | [address] | | | | | [address] | | | | | | [phone] | | | +--------+ + + + [...] sent through Care Everywhere.Hypokalemia (En glish)Tachycardia, Understanding (Chinese)documented in this encounter Medications at Time of [...] | | | | | order to [facility]. | | | | | + [...] | | | | | | [place] [address] | | | | | | [phone] | | | | | | | [...] W?MRN: | | | | | | [id number] | | | [id number] | | | his | | | [...] | | | [place] | | | HETAHER [address] | | | 20 | | [...] [address] | [place] | [phone] | | [facility] | | [address] | | | - LABORATORY | | [...] | | | | | | [employer] | | | | | [...] [address] | [place] | [phone] | | [facility] | | [address] | | | - LABORATORY | | [...] (L) | 7 - 18 mg/dL | [facility] | | | | | | [facility] | | | | | | MEDICAL | | | | | | CENTER - | | | | | | LABORATORY | | + + + + + + | Creatinine | 0.77 | 0.60 - 1.30 | [facility] | | | | | mg/dL | [facility] | | | | | | MEDICAL | | | | | | CENTER - | | | | | | LABORATORY | | + + + + + + | eGFR if not | >60Comment: GLOMERULAR | >=60 | [facility] | | | | FILTRATION | mL/min/1.73m2 | [facility] | | | [place] | RATE,ESTIMATED | | MEDICAL | | | | mL/min/1.14m2Kjpw than | | CENTER - | | [...] + | [facility] | [address] | [place] | [phone] | | [facility] | | [address] | | | - LABORATORY | | [...] + | [facility] | [address] | [place] | [phone] | | [facility] | | [address] | | | - LABORATORY | | [...] | | | | RAFA WELLS MD ([id number]) | | | | | | on [...]
--- OUTSIDE RECORDS SUMMARY | ~2019-02-28 | XMS | Encounter Summary ---
Demographics + + + | Address | [address] | | | [place] [address] | + + + | Home Phone [...] Providers + +------+ + | Care Medical Insurance Collector Name | Role | Phone | + [...] | [facility] | Elda Miranda | Diarrhea (Primary | | 2011 | Visit | CONVENIENT CARE [address] | MD [address] | Dx); Dysuria | | | | [facility] | [address] [facility] | | | | | [place] | [place] [address] | | | | | [address] | [phone] | | | | | [phone] | | | +--------+---------+ + + + [...] allergies reviewed. Review of Systems As per [facility] Objective: Physical Exam Vital signs as noted, nursing notes reviewed. Rmdqpgl-rqbt-kvfyziyac well-nourished female in no apparent distress, pleasant [...] [place] | | | | | | [address] | | | | | | | | +--------+---------+ + + + | 11/24/ | Office | Cardiology | [place], | | | 2019 | Visit | | SINDHU Erickson [address] | | | | | | [place], | | | | | | [place] [address] | | | | | | [phone] | | | | | | | [...] | 1.015 | | | | | [place], | | | | | | [facility], [...]
--- OUTSIDE RECORDS SUMMARY | ~2019-02-28 | XMS | Encounter Summary ---
Demographics + + + | Address | [address] | | | [place] [address] | + + + | Home Phone [...] Team Providers + +------+ + | Care Ventilation Worker Name | Role | Phone | [...] [address] | oximetry) | | | | [place], | [place] | | | | | [place] [address] | [address] | | | | | [phone] | | | +--------+ + + + [...] | | | | | | [place] [address] | | | | | | [phone] | | | | | | | | +--------+---------+ + + + documented as of this encounter Visit Diagnoses Not on filedocumented in this encounter"
--- OUTSIDE RECORDS SUMMARY | ~2019-02-28 | XMS | Encounter Summary ---
Demographics + + + | Address | [address] | | | [place] [address] | + + + | Home Phone [...] Providers + +------+ + | Care Data Entry Assistant Name | Role | Phone | [...] + + | 07/14/ | Emergency | [facility] | [place] | Acute exacerbation | | 2013 | | MED CTR EMERGENCY | MD Ran [address] | of COPD with asthma | | | | [place] [address] | [place] [facility] | ([facility]) (Primary Dx) | | | | [place], [place] | [place] [address] | | | | | [address] | [phone] | | | | | [phone] | | | +--------+ + + + [...] [place] | | | | | | [address] | | | | | | | | +--------+---------+ + + + | 11/24/ | Office | Cardiology | [place], | | | 2019 | Visit | | SINDHU Erickson [address] | | | | | | [place], | | | | | | [place] [address] | | | | | | [phone] | | | | | | | [...] | 0.76 | 0.60 - 1.30 | [facility] [...] mL/min/1.73m2 | [facility] | | | [place]IAN | RATE,ESTIMATED | | MEDICAL | | | | mL/min/1.29u4Ggig than | | CENTER - | | [...] + | [facility] | [address] | [place] | [phone] | | [facility] | | [address] | | | - LABORATORY | | | | + + + + + | [facility] | [address] | [place], [place] | | | [facility] | | [address] | | | - LABORATORY | | [...] + + | Performing | Address | City/[facility] | Phone Number | | Organization | | | | + + + + + | [facility] | [address] | [place] | [phone] | | [facility] | | [address] | | | - LABORATORY | | | | + + + + + | [facility] | [address] | [place] | | | [facility] | | [address] | | | - LABORATORY | | [...] + | MISCELLANEOUS LAB | | | [phone] | + +---------+ + + | MISCELANIOUS LAB | | | [phone] | + +---------+ + + ED INFORMATION EXCHANGE (07/14/2013 12:20 AM PDT) + + | Specimen | + + | | + + + + + | Narrative | Performed At | + + + | VISIT TRACKING (3 MO.) Visit Date Location | [facility] | | Type Diagnoses | | | -------- | | | ---- 07/14/2013 00:15 [place] | [facility] Shortness [facility] Breath; | | | 06/19/2013 21:06 [facility] | | | Emergency Obstructive chronic bronchitis with (acute) | | | exacerbation; | | | Shortness of | | | Breath; | | | diff breathing; | | | 06/19/2013 11:03 [facility] | | | Emergency COPD exasperation; 05/23/2013 19:52 [place] | | [facility] Obstructive chronic | | | bronchitis with (acute) exacerbation; | | | | | | Obstructive chronic bronchitis with (acute) exacerbation; | | | | | | sob; | | | | | | Shortness of Breath; VISIT COUNT (1 YR.) Visits | | | Medicaid [place] Dx Location ------ | | | --------- [address] [facility] | | | [facility] 10 0 Total | | | [...]
--- OUTSIDE RECORDS SUMMARY | ~2019-02-28 | XMS | Encounter Summary ---
Demographics + + + | Address | [address] | | | [place] [address] | + + + | Home Phone [...] Team Providers + +------+ + | Care Admissions Consultant Name | Role | Phone | [...] | | | [place], [place] | [phone] | | | | | [address] | | | | | | [phone] | | | +--------+ + + + [...] | | | | | order to [facility]. | | | | | + [...] | | | | ([facility]) | | | | | [...] | | | | [place] | | | | | | [id number] | | | | | | | | +--------+---------+ + + + | 11/24/ | Office | Cardiology | [place], | | | 2019 | Visit | | SINDHU Erickson [address] | | | | | | [place], | | | | | | [place] [address] | | | | | | [phone] | | | | | | | [...]
--- OUTSIDE RECORDS SUMMARY | ~2019-02-28 | XMS | Encounter Summary ---
Demographics + + + | Address | [address] | | | [place] [address] | + + + | Home Phone [...] Team Providers + +------+ + | Care Electronic Component Processor Name | Role | Phone | [...] [address] | | | | | [place], | [place] | | | | | [place] [address] | [address] | | | | | [phone] | | | +--------+--------+ + + + [...] [place] | | | | | | [id number] | | | | | | | | +--------+---------+ + + + | 11/24/ | Office | Cardiology | [place], | | | 2019 | Visit | | SINDHU Erickson [address] | | | | | | [place] | | | | | | [place] [address] | | | | | | [phone] | | | | | | | | +--------+---------+ + + + documented as of this encounter Visit Diagnoses Not on filedocumented in this encounter"
--- OUTSIDE RECORDS SUMMARY | ~2019-02-28 | XMS | Encounter Summary ---
Demographics + + + | Address | [address] | | | [place] [address] | + + + | Home Phone [...] Providers + +------+ + | Care Heavy Equipment Operator/Paver Name | Role | Phone | + [...] Groin pain, | MD Jared | [address] | | | | | right Hx | [address] | [place], | | | | | of coronary | [address] | [place] [address] | | | | | angiogram | [place], | Phone: | | | | | Peritoneal | [place] [address] | [phone] | | | | | bleeding | Phone: | Fax: | | | | | Procedures | [phone] | [phone] | | | | | CT Abdomen | Fax: | | | | | | Pelvis wo | [phone] | | | | | | Contrast [...] + | 03/07/ | Telephone | [facility] | Sharonda Delmycaitie, | Other ([facility] | | 2015 | | CARDIOLOGY [address] | MD [address] | painful) | | | | [place], | [place], | | | | | [place] [address] | [place] [address] | | | | | [phone] | [phone] | | | | | | | [...] [place] | | | | | | [address] | | | | | | | | +--------+---------+ + + + | 11/24/ | Office | Cardiology | [place], | | | 2019 | Visit | | SINDHU Erickson [address] | | | | | | [place], | | | | | | [place] [address] | | | | | | [phone] | | | | | | | [...] + | MISCELLANEOUS LAB | | | [phone] | + +---------+ + + | MISCELANIOUS LAB | | | [phone] | + +---------+ + + documented in [...]
--- OUTSIDE RECORDS SUMMARY | ~2019-02-28 | XMS | Encounter Summary ---
Demographics + + + | Address | [address] | | | [place] [address] | + + + | Home Phone [...] Team Providers + +------+ + | Care Emergency Vehicle Driver Name | Role | Phone | [...] | | | | CLINIC [address] | [address] [place] | Dx) | | | | [place] | [place] [address] | | | | | [address] | [phone] | | | | | [phone] | | | +--------+ + + + [...] [place] | | | | | | [address] | | | | | | | | +--------+---------+ + + + | 11/24/ | Office | Cardiology | [place], | | | 2019 | Visit | | SINDHU Erickson [address] | | | | | | [place], | | | | | | [place] [address] | | | | | | [phone] | | | | | | | [...] + | [facility] | [address] | [place] | [phone] | | [facility] | | [address] | | | - LABORATORY | | [...] ST. | [address] | [place] | [phone] | | [facility] | | [address] | | | - LABORATORY | | [...] [address] | [place] | [phone] | | [facility] | | [address] | | | - LABORATORY | | [...] ST. | [address] | [place] | [phone] | | [facility] | | [address] | | | - LABORATORY | | [...] | 0.84 | 0.60 - 1.30 | [facility] | | | | | mg/dL | [facility] | | | | | | MEDICAL | | | | | | CENTER - | | | | | | LABORATORY | | + + + + + + | eGFR if not | >60Comment: GLOMERULAR | >=60 | KIRK | | | | FILTRATION | mL/min/1.73m2 | [facility] | | | MAURITIAN | RATE,ESTIMATED | | MEDICAL | | | | mL/min/1.94u7Kgug than | | CENTER - | | [...] [address] | [place] | [phone] | | [facility] | | [address] | | | - LABORATORY | | | | + + + + + documented in this encounter Visit Diagnoses + + | Diagnosis | + + | Preoperative clearance - Primary Preoperative examination, unspecified | + + documented in this encounter"
--- OUTSIDE RECORDS SUMMARY | ~2019-02-28 | XMS | Encounter Summary ---
Demographics + + + | Address | [address] | | | [place] [address] | + + + | Home Phone [...] Team Providers + +------+ + | Care Mailing Clerk Name | Role | Phone | [...] | | [place] | [facility] | | | | | [address] | [place] [address] | | | | | [phone] | [phone] | | | | | | | [...] [place] | | | | | | [address] | | | | | | | | +--------+---------+ + + + | 11/24/ | Office | Cardiology | [place], | | | 2019 | Visit | | SINDHU Erickson [address] | | | | | | [place], | | | | | | [place] [address] | | | | | | [phone] | | | | | | | | +--------+---------+ + + + documented as of this encounter Visit Diagnoses Not on filedocumented in this encounter"
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
--- OUTSIDE RECORDS SUMMARY | ~2019-02-28 | XMS | Encounter Summary ---
Demographics + + + | Address | [address] | | | [place] [address] | + + + | Home Phone [...] Providers + +------+ + | Care Food And Beverage Server Name | Role | Phone | + +------+ + | Juan Cherry DO | PCP | | + +------+ + Encounter Details +--------+ + + + + | Date | Type | Department | Care Team | Description | +--------+ + + + + | 07/15/ | Hospital | [facility] | Kevin Sandoval, | COPD (chronic | | 2014 | Encounter | MED CTR PULMONARY | MD [address] | obstructive | | | | FUNCTION [address] | [place] | pulmonary disease); | | | | [place], | [address] | Hypoxemia | | | | [place] [address] | | | | | | [phone] | | | +--------+ + + + [...] | | | | | | | [facility]. | | | | | [...] | | | | | | [place] [address] | | | | | | [phone] | | | | | | | [...]
--- OUTSIDE RECORDS SUMMARY | ~2019-02-28 | XMS | Encounter Summary ---
Demographics + + + | Address | [address] | | | [place] [address] | + + + | Home Phone [...] Team Providers + +------+ + | Care Concessions Manager Name | Role | Phone | [...] | | | [place] | [facility] | | | | | [address] | [place] [address] | | | | | [phone] | [phone] | | | | | | | [...] [place] | | | | | | [address] | | | | | | | | +--------+---------+ + + + | 11/24/ | Office | Cardiology | [place], | | | 2019 | Visit | | SINDHU Erickson [address] | | | | | | [place], | | | | | | [place] [address] | | | | | | [phone] | | | | | | | | +--------+---------+ + + + documented as of this encounter Visit Diagnoses Not on filedocumented in this encounter"
--- OUTSIDE RECORDS SUMMARY | ~2019-02-28 | XMS | Encounter Summary ---
Demographics + + + | Address | [address] | | | [place] [address] | + + + | Home Phone [...] Team Providers + +------+ + | Care Media/Instructional Designer Name | Role | Phone | + +------+ + PCP | Unavailable | + +------+ + Encounter Details +--------+ + + + + | Date | Type | Department | Care Team | Description | +--------+ + + + + | 10/19/ | [facility] | [facility] | | | | 2008 | Encounter | MED CTR LABORATORY | | | | | | [address] [place] | | | | | | [place] | | | | | | [address] | | | | | | [phone] | | | +--------+ + + + [...] [place] | | | | | | [address] | | | | | | | | +--------+---------+ + + + | 11/24/ | Office | Cardiology | [place], | | | 2020 | Visit | | SINDHU Erickson [address] | | | | | | [place], | | | | | | [place] [address] | | | | | | [phone] | | | | | | | | +--------+---------+ + + + documented as of this encounter Visit Diagnoses Not on filedocumented in this encounter"
--- OUTSIDE RECORDS SUMMARY | ~2019-02-28 | XMS | Encounter Summary ---
Demographics + + + | Address | [address] | | | [place] [address] | + + + | Home Phone [...] Providers + +------+ + | Care Service Car Driver Name | Role | Phone | + +------+ + | Juan Cherry DO | PCP | | + +------+ + Encounter Details +--------+ + + + + | Date | Type | Department | Care Team | Description | +--------+ + + + + | 08/20/ | Abstract | [facility] [place] | Jared Mcdonough, | | | 2013 | | CARDIOLOGY [address] | MD [address] | | | | | [place], | [place], | | | | | [place] [address] | [place] [address] | | | | | [phone] | [phone] | | | | | | | [...] [place] | | | | | | [address] | | | | | | | | +--------+---------+ + + + | 11/24/ | Office | Cardiology | [place], | | | 2019 | Visit | | SINDHU Erickson [address] | | | | | | [place], | | | | | | [place] [address] | | | | | | [phone] | | | | | | | [...] + | [facility] | [address] | [place], [place] | [phone] | | [facility] | | [address] | | | - LABORATORY | | | | + + + + + | [facility] | [address] | [place], [place] | | | [facility] | | [address] | | | - LABORATORY | | [...] [facility] | | | | | | [facility] | | | | | | [...] | | [facility] | | [address] | | | - LABORATORY | | [...] | | | LAB | | | [place], | | | | | | External [...]
--- OUTSIDE RECORDS SUMMARY | ~2019-02-28 | XMS | Encounter Summary ---
Demographics + + + | Address | [address] | | | [place] [address] | + + + | Home Phone [...] Providers + +------+ + | Care Certified Registered Dental Assistant Name | Role | Phone | [...] [address] | | | | | [place], | [place] | | | | | [place] [address] | [address] | | | | | [phone] | | | +--------+--------+ + + + [...] | | | | | | [place] [address] | | | | | | [phone] | | | | | | | | +--------+---------+ + + + documented as of this encounter Visit Diagnoses Not on filedocumented in this encounter"
--- OUTSIDE RECORDS SUMMARY | ~2019-02-28 | XMS | Encounter Summary ---
Demographics + + + | Address | [address] | | | [place] [address] | + + + | Home Phone [...] Providers + +------+ + | Care Sports Analyst Name | Role | Phone | + +------+ + PCP | Unavailable | + +------+ + Encounter Details +--------+ + + + + | Date | Type | Department | Care Team | Description | +--------+ + + + + | 10/15/ | Hospital | [facility] | Berna Vizcaino MD | Dizziness; | | 2010 | Encounter | CONVERSION DEP [address] | [address] | [place]; | | | | [address] | [place] [address] | [place] | | | | [place], [place] | [phone] | | | | | [address] | | | | | | [phone] | | | +--------+ + + + [...] [place] | | | | | | [address] | | | | | | | | +--------+---------+ + + + | 11/24/ | Office | Cardiology | [place], | | | 2019 | Visit | | SINDHU Erickson [address] | | | | | | [place], | | | | | | [place] [address] | | | | | | [phone] | | | | | | | [...] EXTERNAL LAB | | Testing performed at [facility];[address] [place] [address];[place] [address] APPEARANCE | | | CLEAR Testing performed at | | | [facility];[address] [place] [address];[place] [address] Tube Number, CSF | | | 1 Testing performed at [facility] | | | [address]vd;[place] [address] CSF RBC | | | 0 Testing performed at [facility];[address] [place] [address];[place], [place] | | | [address] CSF WBC 0 | | | Testing performed at [facility];[address] [place] [address];[place] [address] | | + + + + +---------+ [...] Performed At | + + + | [facility] [address] Ph: | | | Patient Name: JADYN SCHMITZ Date of : | | | 1965 Medical Record: [id number] Account: [id number] | | | Exam Date/Time: 10/15/2010 10:15 [...] this patient in the | | | Circuit Manager holding room. The patient was awake, alert, [...] - 10/17/2018 5:21 PM PDT | | [facility] | | [facility] [address] | | | | | | Patient Name: JADYN SCHMITZ | | Date of : 1965 | | Medical Record: [id number] | | Account: [id number] | | | | | | Exam [...] | I met this patient in the Circuit Manager holding room. The patient was awake, | [...] EXTERNAL LAB | | Testing performed at [facility];[address] [place] [address];[place] [address] VIRAL | | | CULTURE ACCESSION NO. | | | [id number] SPECIMEN SOURCE | | | CEREBROSPINAL FLUID RESULT | | | PRELIMINARY: NO VIRUS ISOLATED AT 7 | | | DAYS. | | | FINAL: NO VIRUS ISOLATED AT 14 DAYS. Testing performed at | | | [address] [address] VIRAL CULTURE,STATUS | | | REPORT STATUS FINAL | | | 10/30/2010 Testing performed at [address] | | | [address] | | + + + + +---------+ [...] | Testing performed at | | | [facility];[address] [facility];[place] [address] GRAM STAIN | | | NO CELLS OR ORGANISMS SEEN | | | Testing performed at [facility], [address] [place] [address] | | | [place] [address] CULTURE | | | NO GROWTH 3 DAYS | | | Testing performed at [facility], [address] [place] [address], [place], | | | [place] [address] REPORT STATUS 10/18/2010 | | | FINAL [...] | EXTERNAL LAB | | performed at [facility];[address] [place] [address];[place] [address] | | + + + + +---------+ [...] EXTERNAL LAB | | Testing performed at [facility];[address] [place] [address];[place] [address] | | + + + + +---------+ [...]
--- OUTSIDE RECORDS SUMMARY | ~2019-02-28 | XMS | Encounter Summary ---
Demographics + + + | Address | [address] | | | [place] [address] | + + + | Home Phone [...] Team Providers + +------+ + | Care Temperature Regulator Name | Role | Phone | + [...] [address] | | | | | [place], | [place] | | | | | [place] [address] | [address] | | | | | [phone] | | | +--------+ + + + [...] [place] | | | | | | [address] | | | | | | | | +--------+---------+ + + + | 11/24/ | Office | Cardiology | [place], | | | 2019 | Visit | | SINDHU Erickson [address] | | | | | | [place], | | | | | | [place] [address] | | | | | | [phone] | | | | | | | | +--------+---------+ + + + documented as of this encounter Visit Diagnoses Not on filedocumented in this encounter"
--- OUTSIDE RECORDS SUMMARY | ~2019-02-28 | XMS | Encounter Summary ---
Demographics + + + | Address | [address] | | | [place] [address] | + + + | Home Phone [...] Providers + +------+ + | Care Property Damage Claims Adjustor Name | Role | Phone | + [...] + + | 06/09/ | Office | [facility] | Kevin Sandoval, | COPD (chronic | | 2015 | Visit | PULMONARY [address] | MD [address] | obstructive | | | | [place], | [place], [place] | pulmonary disease) | | | | [place] [address] | [address] | (HCC) (Primary Dx); | | | | [phone] | | Hypoxemia (HCC); GARRY | | [...] car. Draw. Do a puzzle. Build a birdbeneSol. Delay. The urge to smoke lasts only [...] of these could help you quit smoking. 1368-1672 [employer] [address] [place] [address]. All righ ts reserved. This information is [...] for a COPD exacerbation [facility] Pulmonary last clinic appointment Rosario [...] ([facility]) 10/28/2012 Overview: [facility] [...] tablet, Rfl: 3, Respiratory Therapy Supplies [facility] Please provide patient with necessary CPAP supplies (she did not specify, okay to send order as appropriate) Diagnosis Code(s)327.23 . Length of Nee d 99 months. Please send order to [facility] Disp: 1 each, Rfl: 0, Respiratory Therapy Supplies MISC, Change CPAP back to 11-14 cm H2O. All necessary supplies . No oxygen bleed in. Diagnosis Code(s)327.23. Length of Need: Lifetime. Please send order t bony [facility]. This is not a new [...] | | | | [place] | | | | | | [address] | | | | | | | | +--------+---------+ + + + | 11/24/ | Office | Cardiology | [place], | | | 2019 | Visit | | SINDHU Erickson [address] | | | | | | [place], | | | | | | [place] [address] | | | | | | [phone] | | | | | | | [...]
--- OUTSIDE RECORDS SUMMARY | ~2019-02-28 | XMS | Encounter Summary ---
Demographics + + + | Address | [address] | | | [place] [address] | + + + | Home Phone [...] Providers + +------+ + | Care Contract Processor Name | Role | Phone | + +------+ + | Juan Cherry DO | PCP | | + +------+ + Encounter Details +--------+ + + + + | Date | Type | Department | Care Team | Description | +--------+ + + + + | 09/09/ | Hospital | [facility] IP | Conversion | Pain | | 2015 | Encounter | CONVERSION [address] | Transaction, | | | | | [address] | Provider Unknown | | | | | [place], [place] | [phone] | | | | | [address] | | | | | | [phone] | | | +--------+ + + + [...] | | | | | | [facility]. | | | | | | | [...] | | | | | | | ([facility]) | | | | | [...] | | | | [place] R [place] | | | | | | [address] | | | | | | | | +--------+---------+ + + + | 11/24/ | Office | Cardiology | [place], | | | 2019 | Visit | | SINDHU Erickson [address] | | | | | | [place], | | | | | | [place] [address] | | | | | | [phone] | | | | | | | [...]
--- OUTSIDE RECORDS SUMMARY | ~2019-02-28 | XMS | Encounter Summary ---
Demographics + + + | Address | [address] | | | [place] [address] | + + + | Home Phone [...] + + | 01/20/ | Emergency | [facility] | Nestor Martinez, | COPD exacerbation | | 2013 - | | MED CTR EMERGENCY | MD [address] | ([facility]) (Primary Dx) | | | | [facility] [address] | [place], [place] | | | 01/21/ | | [place], [place] | [address] | | | 2013 | | [address] | | | | | | [phone] | | | +--------+ + + + [...] sent through Care Everywhere.ED COPD FLARE ( SLOVENIAN)documented in this encounter Medications at Time of [...] | | | | [facility]. | | | | | | [...] [place] | | | | | | [address] | | | | | | | | +--------+---------+ + + + | 11/24/ | Office | Cardiology | [place], | | | 2019 | Visit | | SINDHU Erickson [address] | | | | | | [place], | | | | | | [place] [address] | | | | | | [phone] | | | | | | | [...] + | MISCELLANEOUS LAB | | | [phone] | + +---------+ + + | MISCELANIOUS LAB | | | [phone] | + +---------+ + + documented in [...]
--- OUTSIDE RECORDS SUMMARY | ~2019-02-28 | XMS | Encounter Summary ---
Demographics + + + | Address | [address] | | | [place] [address] | + + + | Home Phone [...] Team Providers + +------+ + | Care Bioinformatician Name | Role | Phone | + [...] | | | | CENTER [address] | | carried out because | | | | [place] | | of patient's | | | | [address] | | decision (Primary | | | | [phone] | | Dx) | +--------+ + + [...] | | | | | | | [facility]. | | | | | | [...] [place] | | | | | | [id number] | | | | | | | | +--------+---------+ + + + | 11/24/ | Office | Cardiology | [place], | | | 2019 | Visit | | SINDHU Erickson [address] | | | | | | [place] | | | | | | [place] [address] | | | | | | [phone] | | | | | | | | +--------+---------+ + + + documented as of this encounter Visit Diagnoses + + | Diagnosis | + + | Surgical or other procedure not carried out because of patient's decision - Primary | + + documented in this encounter"
--- OUTSIDE RECORDS SUMMARY | ~2019-02-28 | XMS | Encounter Summary ---
Demographics + + + | Address | [address] | | | [place] [address] | + + + | Home Phone [...] Team Providers + +------+ + | Care Protohistorian Name | Role | Phone | + [...] | CARDIOLOGY [address] | [address] | (Primary Dx) | | | | [place], | [place], | | | | | [place] [address] | [place] [address] | | | | | [phone] | [phone] | | | | | | | [...] documented as of this encounter Progress Jared lFynn MD - 03/17/2014 10:49 AM PSTFormatting of [...] She is in a class II of [place] Heart Association functi onal class. There is [...] months. Electronically signed by: Jared Mcdonough MD [facility] 03/17/2014 Portions of this chart may have been created with Accelera voice recognition software. Occasi onal wrong-word or [...] [place] | | | | | | [address] | | | | | | | | +--------+---------+ + + + | 11/24/ | Office | Cardiology | [place], | | | 2020 | Visit | | SINDHU Erickson [address] | | | | | | [place], | | | | | | [place] [address] | | | | | | [phone] | | | | | | | | +--------+---------+ + + + documented as of this encounter Visit Diagnoses + + | Diagnosis | + + | Other chest pain - Primary | + + documented in this encounter
--- OUTSIDE RECORDS SUMMARY | ~2019-02-28 | XMS | Encounter Summary ---
Demographics + + + | Address | [address] | | | [place] [address] | + + + | Home Phone [...] Providers + +------+ + | Care Grain Picker Name | Role | Phone | [...] MD | oximetry) | | | | [place], | | | | | | [place] [address] | | | | | | [phone] | | | +--------+ + + + [...] | | | | | | [place] [address] | | | | | | [phone] | | | | | | | [...]
--- OUTSIDE RECORDS SUMMARY | ~2019-02-28 | XMS | Encounter Summary ---
Demographics + + + | Address | [address] | | | [place] [address] | + + + | Home Phone [...] Team Providers + +------+ + | Care Beam Sealer Name | Role | Phone | [...] [address] | | | | | [place], | [place] | | | | | [place] [address] | [address] | | | | | [phone] | | | +--------+--------+ + + + [...] [place] | | | | | | [id number] | | | | | | | | +--------+---------+ + + + | 11/24/ | Office | Cardiology | [place], | | | 2019 | Visit | | SINDHU Erickson [address] | | | | | | [place] | | | | | | [place] [address] | | | | | | [phone] | | | | | | | | +--------+---------+ + + + documented as of this encounter Visit Diagnoses Not on filedocumented in this encounter"
--- OUTSIDE RECORDS SUMMARY | ~2019-02-28 | XMS | Encounter Summary ---
Demographics + + + | Address | [address] | | | [place] [address] | + + + | Home Phone [...] sleep apnea) | | | | [address] [place] [place] | [place] | (Primary Dx) | | | | [place] [address] | [address] | | | | | [phone] | | | +--------+---------+ + + + [...] machine. She has tried to get her [employer] to add the connection part for oxygen to her machine, but it has not happene d. Now she only uses her 3 per minute of supplemental oxygen at night and she has not been u sing her machine for the past few months. She was already on oxygen during the day for her COPD through her sales and business development manager. She says since she stopped using [...] years before she was switched to bilevel [id number]. I reviewed the notes from Dr Chris Alarcon in [place], [place].It indicates that patient had CPAP intolerance [...] a medium airtouch F20 mask recommended. Since patirc ased on patient's history and previous sleep [...] Daily. Yes Historical ProviderYinka Respiratory Therapy Supplies [facility] Please provide patient with necessary CPAP supplies (she did not specify, okay to send order as appropriate) Diagnosis Code(s)327.23 . Length of Need 99 months. Please send order to [facility]. 01/13/13 Yes Loreta London MD Respiratory Therapy Supplies [facility] Change CPAP back to 11-14 cm H2O. All necessary supplies. No oxygen bleed in. Diagnosis Code(s)327.23. Length of Need: Lifetime. Please send order to [facility]. This is not a [...] was performed on 04/17/15( Dr. Alarcon in [place], [place]) indicated that . Bilevel-ST was prescribed [...] evidence for hypoventilation. Date, I personally called [facility] and discussed this with one of the staff. If the machine c ould be set up on bilevel-S this should be done(today, I tried to check it but after about 1 0 minutes the machine still was reading the card, and I wonder if it functions properly). Ot herwise, the machine should be replaced with a bilevel-S machine. A staff from [facility] is to c all me tomorrow and [...] this chart may have been created with E[employer]el voice recognition software. Occasi onal wrong-word or [...] | | | | [place] | | | | | | [address] | | | | | | | | +--------+---------+ + + + | 11/24/ | Office | Cardiology | [place], | | | 2019 | Visit | | GeorginaSINDHU reynoso [address] | | | | | | [place], | | | | | | [place] [address] | | | | | | [phone] | | | | | | | | +--------+---------+ + + + documented as of this encounter Visit Diagnoses + + | Diagnosis | + + | GARRY (obstructive sleep apnea) - Primary Obstructive sleep apnea (adult) (pediatric) | + + documented in this encounter
--- OUTSIDE RECORDS SUMMARY | ~2019-02-28 | XMS | Encounter Summary ---
Demographics + + + | Address | [address] | | | [place] [address] | + + + | Home Phone [...] Providers + +------+ + | Care Design Editor Name | Role | Phone | [...] [address] | | | | | [place], | [place], | | | | | [place] [address] | [place] [address] | | | | | [phone] | [phone] | | | | | | | [...] [place] | | | | | | [address] | | | | | | | | +--------+---------+ + + + | 11/24/ | Office | Cardiology | [place], | | | 2019 | Visit | | SINDHU Erickson [address] | | | | | | [place], | | | | | | [place] [address] | | | | | | [phone] | | | | | | | [...]
--- OUTSIDE RECORDS SUMMARY | ~2019-02-28 | XMS | Encounter Summary ---
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 I had her work with a surgery technician to ensure that she was fitting [...] month, sooner prn. Fifteen minutes were spent [id number]-rb-[id number], wit h the majority of time spent [...] [place] | | | | | | [address] | | | | | | | | +--------+---------+ + + + | 11/24/ | Office | Cardiology | [place], | | | 2019 | Visit | | SINDHU Erickson [address] | | | | | | [place], | | | | | | [place] [address] | | | | | | [phone] | | | | | | | | +--------+---------+ + + + documented as of this encounter Visit Diagnoses + + | Diagnosis | + + | GARRY on CPAP - Primary Obstructive sleep apnea (adult) (pediatric) | + + | Organic insomnia, unspecified | + + documented in this encounter"
--- OUTSIDE RECORDS SUMMARY | ~2019-02-28 | XMS | Encounter Summary ---
Demographics + + + | Address | [address] | | | [place] [address] | + + + | Home Phone [...] Providers + +------+ + | Care Charging Board Operator Name | Role | Phone | [...] + + | 02/22/ | Office | [facility] [place] | Offenstein, | COPD exacerbation | | 2012 | Visit | PULMONARY [address] | Loreta Alonso MD | ([facility]) (Primary Dx); | | | | [place], | | GARRY (obstructive | | | | [place] [address] | | sleep apnea); | | | | [phone] | | Central sleep apnea; | | [...] MD Ayaka Rasheed Pulmonary and Critical Care [facility] [address] [place], [address] [facility] Rosario Malik is a 48 [...] Colonoscopy 1995 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 [...] | | | [place] | | | | | | [address] | | | | | | | | +--------+---------+ + + + | 11/24/ | Office | Cardiology | [place], | | | 2019 | Visit | | SNIDHU Erickson [address] | | | | | | [place], | | | | | | [place] [address] | | | | | | [phone] | | | | | | | [...]
--- OUTSIDE RECORDS SUMMARY | ~2019-02-28 | XMS | Encounter Summary ---
Demographics + + + | Address | [address] | | | [place] [address] | + + + | Home Phone [...] Providers + +------+ + | Care Associate Creative Director Name | Role | Phone | + +------+ + | Juan Cherry DO | PCP | | + +------+ + Encounter Details +--------+ + + + + | Date | Type | Department | Care Team | Description | +--------+ + + + + | 09/09/ | Hospital | [facility] GENER[facility] IP | Conversion | Pain | | 2015 | Encounter | CONVERSION [address] | Transaction, | | | | | [address] | Provider Unknown | | | | | [place], [place] | [phone] | | | | | [address] | | | | | | [phone] | | | +--------+ + + + [...] | | | | [place] | | | | | | [id number] | | | | | | | | +--------+---------+ + + + | 11/24/ | Office | Cardiology | [place], | | | 2019 | Visit | | SINDHU Erickson [address] | | | | | | [place], | | | | | | [place] [address] | | | | | | [phone] | | | | | | | [...]
--- OUTSIDE RECORDS SUMMARY | ~2019-02-28 | XMS | Encounter Summary ---
Demographics + + + | Address | [address] | | | [place] [address] | + + + | Home Phone [...] Providers + +------+ + | Care Communications Field Technician Name | Role | Phone | [...] + | 10/05/ | Telephone | [facility] | Sharonda Delmycaitie, | Referral | | 2013 | | CARDIOLOGY [address] | [address] [place] | | | | | [place], | [place], | | | | | [place] [address] | [place] [address] | | | | | [phone] | [phone] | | | | | | | [...] | | | | | | [place] [address] | | | | | | [phone] | | | | | | | | +--------+---------+ + + + documented as of this encounter Visit Diagnoses Not on filedocumented in this encounter"
--- OUTSIDE RECORDS SUMMARY | ~2019-02-28 | XMS | Encounter Summary ---
Demographics + + + | Address | [address] | | | [place] [address] | + + + | Home Phone [...] Providers + +------+ + | Care Milk Handler Name | Role | Phone | [...] Alonso MD | | | | | [place], | | | | | | [place] [address] | | | | | | [phone] | | | +--------+--------+ + + + [...] [place] | | | | | | [address] | | | | | | | | +--------+---------+ + + + | 11/24/ | Office | Cardiology | [place], | | | 2019 | Visit | | SINDHU Erickson [address] | | | | | | [place] | | | | | | [place] [address] | | | | | | [phone] | | | | | | | | +--------+---------+ + + + documented as of this encounter Visit Diagnoses Not on filedocumented in this encounter"
--- OUTSIDE RECORDS SUMMARY | ~2019-02-28 | XMS | Encounter Summary ---
Demographics + + + | Address | [address] | | | [place] [address] | + + + | Home Phone [...] Providers + +------+ + | Care Environmental Remediation Specialist Name | Role | Phone | + +------+ + | Juan Cherry DO | PCP | | + +------+ + Encounter Details +--------+ + + + + | Date | Type | Department | Care Team | Description | +--------+ + + + + | 04/02/ | Hospital | [facility] | Dio Yun | | | 2017 | Encounter | MED CTR NUCLEAR | MD [address] | | | | | MEDICINE [address] | ROSEMARY OLMEDO [address] | | | | | [place], | [place], [place] | | | | | [place] [address] | [address] | | | | | [phone] | [phone] | | | | | | | [...] | | | | | order to [facility]. | | | | | [...] | 0 | 10/13/19 | | | Orebzrlghz-QBMP-Vxgv | mouth as needed. | | | 16 | 7 | | -Cod [id number] MG | | | | | | [...] | | | | | | [place] [address] | | | | | | [phone] | | | | | | | [...]
--- OUTSIDE RECORDS SUMMARY | ~2019-02-28 | XMS | Encounter Summary ---
Demographics + + + | Address | [address] | | | [place] [address] | + + + | Home Phone [...] Providers + +------+ + | Care Utility Mechanic Name | Role | Phone | [...] + + | 05/06/ | Office | [facility] | [place], | Palpitations | | 2018 | Visit | CARDIOLOGY [address] | SINDHU Erickson [address] | (Primary Dx); Chest | | | | [place], | [place], | pain, unspecified | | | | [place] [address] | [place] [address] | type; Syncope, | | | | [phone] | [phone] | unspecified syncope | | | | [...] [facility] Respiratory Therapy Supplies [facility] Please provide patient with necessary CPAP supplies ( she did not specify, okay to send order as appropriate) Diagnosis Code(s)327.23 . Length of Need 99 months. Please send order to [facility]. 1 each 0 Respiratory Therapy Supplies [...] She was seen at the ED of [facility] 3 weeks ago and again 1 week [...] is in a class I-II o f [place] Heart Association functional class. There is [...] and v entricular function done at the [facility]. LVEF 78%. C. Holter Monitor 08/16/13 Underlying [...] a day. Because of the concern o anomie interaction with psych medications, and it was [...] this chart may have been created with [employer] voice recognition software. Occasi onal wrong-word or [...] [place] | | | | | | [address] | | | | | | | | +--------+---------+ + + + | 11/24/ | Office | Cardiology | [place], | | | 2019 | Visit | | SINDHU Erickson [address] | | | | | | [place] | | | | | | [place] [address] | | | | | | [phone] | | | | | | | [...] [place] | | | | | | ([phone]) on 05/06/2017 | | | | | [...]
--- OUTSIDE RECORDS SUMMARY | ~2019-02-28 | XMS | Encounter Summary ---
Demographics + + + | Address | [address] | | | [place] [address] | + + + | Home Phone [...] Team Providers + +------+ + | Care Reactor Service Operator Name | Role | Phone | + +------+ + | Juan Cherry DO | PCP | | + +------+ + Encounter Details +--------+ + + + + | Date | Type | Department | Care Team | Description | +--------+ + + + + | 01/20/ | Hospital | [facility] | Guru Cárdenas, | | | 2011 | Encounter | MED CTR EMERGENCY | [address] | | | | | CENTER [address] | [facility] [place] | | | | | [place], [place] | [place] [address] | | | | | [address] | [phone] | | | | | [phone] | | | | | | | Ozzy Aponte | | | | | | MD Delio [address] | | | | | | [address] [place] | | | | | | [place] [address] | | | | | | [phone] | | | | | | | [...] [place] | | | | | | [address] | | | | | | | | +--------+---------+ + + + | 11/24/ | Office | Cardiology | [place], | | | 2019 | Visit | | SINDHU Erickson [address] | | | | | | [place] | | | | | | [place] [address] | | | | | | [phone] | | | | | | | [...] + + + | [facility] Diagnostic Imaging | ECCLES | | Department [address] [facility] | [place] | | [ rep [address]] [ rep [facility] | | [facility]] Signed | - IMAGING | | | | | Patient Name: JADYN SCHMITZ | | | Physician: MARY : 1965 Age: 47 Sex: F Unit | | | #: [id number] Exam Date: 01/21/12 Location: | | | EDU Report #: [id number] Page: | | | %(RAD)RES..mtdd.print.filter("pg") of %(RAD) | | | RES..mtdd.print.filter("tpg") | | | | | | Accession Number: [id number] | | | RIGHT FOOT CLINICAL HISTORY: [...] Transcribed Date/Time: 01/21/2012 09:32 | | | Spa Attendant: ChrisARELIS <<Signature on File>> | | | | | | Cesar Ren MD01/21/12 [id number] <Electronically signed by | | | Cesar Ren MD> Cesar Ren MD 01/21/12 | | | 0979 Spa Attendant: Neal Cchvzlrmrizdr54/27/12 0932 | | | | | + + + + + + + + | Performing | Address | City/State/Zipcode | Phone Number | | Organization | | | | + + + + + | [facility] | [address] | [place] | [phone] | | [facility] | | [address] | | | - IMAGING | | | | + + + + + documented in this encounter Visit Diagnoses Not on filedocumented in this encounter
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
--- OUTSIDE RECORDS SUMMARY | ~2019-02-28 | XMS | Encounter Summary ---
Demographics + + + | Address | [address] | | | [place] [address] | + + + | Home Phone [...] Providers + +------+ + | Care Electric Welder Helper Name | Role | Phone | [...] Alonso MD | | | | | [place], | | | | | | [place] [address] | | | | | | [phone] | | | +--------+--------+ + + + [...] [place] | | | | | | [address] | | | | | | | | +--------+---------+ + + + | 11/24/ | Office | Cardiology | [place], | | | 2019 | Visit | | SINDHU Erickson W | | | | | | [place] | | | | | | [place] [address] | | | | | | [phone] | | | | | | | | +--------+---------+ + + + documented as of this encounter Visit Diagnoses Not on filedocumented in this encounter"
--- OUTSIDE RECORDS SUMMARY | ~2019-02-28 | XMS | Encounter Summary ---
Demographics + + + | Address | [address] | | | [place] [address] | + + + | Home Phone [...] Providers + +------+ + | Care Superintendent Pressure Name | Role | Phone | + [...] | | | | [facility] | [address] | [address] | | | | | EXERCISE | [place], | [place] | | | | | | [place] [address] | [place], [place] | | | | | | Phone: | [address] | | | | | | [phone] | Phone: | | | | | | Fax: | [phone] | | | | | | [phone] | Fax: | | | | | | | [phone] | +--------+--------+ + + + + Encounter Details +--------+---------+ + + + | Date | Type | Department | Care Team | Description | +--------+---------+ + + + | 07/02/ | Office | [facility] | Jared Mcdonough, | Chronic obstructive | | 2017 | Visit | MED CTR CARDIAC | MD Migdalia King | pulmonary disease, | | | | REHABILITATION [address] [place], | unspecified COPD | | | | [address] [place] | [place] [address] | type (HCC) (Primary | | | | [place] [address] | [phone] | Dx); Mild persistent | | | | [phone] | | asthma without | | | [...] [place] | | | | | | [address] | | | | | | | | +--------+---------+ + + + | 11/24/ | Office | Cardiology | [place], | | | 2019 | Visit | | SINDHU Erickson W | | | | | | [place], | | | | | | [place] [address] | | | | | | [phone] | | | | | | | | +--------+---------+ + + + documented as of this encounter Visit Diagnoses + + | Diagnosis | + + | Chronic obstructive pulmonary disease, unspecified COPD type (HCC) - Primary | + + | Mild persistent asthma without complication Unspecified asthma | + + documented in this encounter"
--- OUTSIDE RECORDS SUMMARY | ~2019-02-28 | XMS | Encounter Summary ---
Demographics + + + | Address | [address] | | | [place] [address] | + + + | Home Phone [...] Team Providers + +------+ + | Care Retort Load Expediter Name | Role | Phone | + [...] | | | | | | [place] [address] | | | | | | [phone] | | | +--------+ + + + [...] [place] | | | | | | [address] | | | | | | | | +--------+---------+ + + + | 11/24/ | Office | Cardiology | [place], | | | 2019 | Visit | | SINDHU Erickson [address] | | | | | | [place], | | | | | | [place] [address] | | | | | | [phone] | | | | | | | | +--------+---------+ + + + documented as of this encounter Visit Diagnoses Not on filedocumented in this encounter"
--- OUTSIDE RECORDS SUMMARY | ~2019-02-28 | XMS | Encounter Summary ---
Demographics + + + | Address | [address] | | | [place] [address] | + + + | Home Phone [...] Team Providers + +------+ + | Care Bran Mixer Name | Role | Phone | [...] [address] | | | | | [place], | [place], | | | | | [place] [address] | [place] [address] | | | | | [phone] | [phone] | | | | | | | [...] | | | | | | [place] [address] | | | | | | [phone] | | | | | | | | +--------+---------+ + + + documented as of this encounter Visit Diagnoses Not on filedocumented in this encounter"
--- OUTSIDE RECORDS SUMMARY | ~2019-02-28 | XMS | Encounter Summary ---
Demographics + + + | Address | [address] | | | [place] [address] | + + + | Home Phone [...] Team Providers + +------+ + | Care Order Detailer Name | Role | Phone | + [...] + + | 04/03/ | Office | [facility] | [place], | Abnormal stress test | | 2017 | Visit | CARDIOLOGY [address] | SINDHU Erickson [address] | (Primary Dx); | | | | [place], | [place], | Paroxysmal atrial | | | | [place] [address] | [place] [address] | tachycardia (HCC) | | | | [phone] | [phone] | | | | | | | [...] 4 hours as needed. 360 mL 5 Pfpskpimdw-EZYE-Ldmx-Cod [id number] MG CAPS Take 1 capsule by mouth [...] Need: Lifetime. Please send orde r to [facility]. This is not a new [...] longer present Confirmed by RAFA WELLS MD ([id number]) on 08/06/2015 9:42:29 AM LAB RESULTS reviewed during visit today primarily from [facility]: LIPID Lab Results Component Value Date [...] She was seen at the ED of [facility] 3 weeks ago and again [...] She is in a class II of [place] [employer] on functional class. There is [...] and v entricular function done at the [facility]. LVEF 78%. C. Holter Monitor [...] this chart may have been created with [employer] voice recognition software. Occasi onal wrong-word or [...] [place] | | | | | | [address] | | | | | | | | +--------+---------+ + + + | 11/24/ | Office | Cardiology | [place], | | | 2019 | Visit | | SINDHU Erickson [address] | | | | | | [place], | | | | | | [place] [address] | | | | | | [phone] | | | | | | | [...]
--- OUTSIDE RECORDS SUMMARY | ~2019-02-28 | XMS | Encounter Summary ---
Demographics + + + | Address | [address] | | | [place] [address] | + + + | Home Phone [...] Team Providers + +------+ + | Care Drilling Superintendent Name | Role | Phone | [...] + + | 08/24/ | Office | [facility] | Kevin Sandoval, | COPD (chronic | | 2015 | Visit | PULMONARY [address] | MD [address] | obstructive | | | | [place], | [place], [place] | pulmonary disease) | | | | [place] [address] | [address] | ([facility]) (Primary Dx); | | | | [phone] | | Hypoxemia ([facility]); | | | | | | COPD with acute | | | | | | bronchitis ([facility]) | +--------+---------+ + + + [...] your ankles gets worse Dizziness or weakness 5118-[address] [place] [address]. All righ ts reserved. This information is [...] [facility]) 10/28/2012 Overview: Managed by [facility] [...] 15 tablet, Rfl: 3 Respiratory Therapy Supplies [facility] [place] Please provide patient with necessary CPAP supplies (she did not specify, okay to send order as appropriate) Diagnosis Code(s)327.23 . Length of Nee d 99 months. Please send order to [facility] Disp: 1 each, Rfl: 0 Respiratory [...] | | | | | | [place] [address] | | | | | | [phone] | | | | | | | [...]
--- OUTSIDE RECORDS SUMMARY | ~2019-02-28 | XMS | Encounter Summary ---
Demographics + + + | Address | [address] | | | [place] [address] | + + + | Home Phone [...] Team Providers + +------+ + | Care Visitor Services Associate Name | Role | Phone | + +------+ + PCP | Unavailable | + +------+ + Encounter Details +--------+ + + + + | Date | Type | Department | Care Team | Description | +--------+ + + + + | 10/11/ | Hospital | [facility] | Berna Glass MD | HEADACHE; | | 2010 | Encounter | CONVERSION DEP [address] | [address] | Diplopia; | | | | [address] | [place] [address] | Dizziness | | | | [place], [place] | [phone] | | | | | [address] | | | | | | [phone] | | | +--------+ + + + [...] [place] | | | | | | [address] | | | | | | | | +--------+---------+ + + + | 11/24/ | Office | Cardiology | [place], | | | 2019 | Visit | | SINDHU Erickson [address] | | | | | | [place], | | | | | | [place] [address] | | | | | | [phone] | | | | | | | [...] Performed At | + + + | [place] [id number] Ph: | | | Patient Name: JADNY SCHMITZ Date of : | | | 1965 Medical Record: [id number] Account: [id number] | | | Exam Date/Time: 10/11/2010 12:00 [...] The data set was also examined with [employer] 3D software | | | for evaluation [...] - 10/17/2018 5:21 PM PDT | | [facility] | | [facility] [address] | | | | | | Patient Name: JADYN SCHMITZ W | | Date of : 1965 | | Medical Record: [id number] | | Account: [id number] | | | | | | Exam [...] set was also examined with | | [employer] 3D software for evaluation of the cerebral [...]
--- OUTSIDE RECORDS SUMMARY | ~2019-02-28 | XMS | Encounter Summary ---
Demographics + + + | Address | [address] | | | [place] [address] | + + + | Home Phone [...] Providers + +------+ + | Care Color Making Supervisor Name | Role | Phone | + +------+ + PCP | Unavailable | + +------+ + Encounter Details +--------+ + + + + | Date | Type | Department | Care Team | Description | +--------+ + + + + | 03/23/ | Hospital | [facility] | Rocky Rodriguez | | | 2010 | Encounter | MED CTR EMERGENCY | MD Kyler [address] | | | | | CENTER [address] | [address] [facility] | | | | | [place], [place] | [place] [address] | | | | | [address] | [phone] | | | | | [phone] | | | +--------+ + + + [...] [place] | | | | | | [address] | | | | | | | | +--------+---------+ + + + | 11/24/ | Office | Cardiology | [place], | | | 2019 | Visit | | SINDHU Erickson [address] | | | | | | [place], | | | | | | [place] [address] | | | | | | [phone] | | | | | | | | +--------+---------+ + + + documented as of this encounter Visit Diagnoses Not on filedocumented in this encounter"
--- OUTSIDE RECORDS SUMMARY | ~2019-02-28 | XMS | Encounter Summary ---
Demographics + + + | Address | [address] | | | [place] [address] | + + + | Home Phone [...] Team Providers + +------+ + | Care Make Up Girl Name | Role | Phone | + [...] | with brief | [address] | [place] | | | | n | loss of | [address] | [place], | | | | | consciousnes | [place], | [place] [address] | | | | | s | [place] [address] | Phone: | | | | | Post-concuss | Phone: | [phone] | | | | | ion vertigo | [phone] | Fax: | | | | | [phone] | Fax: | [phone] | | | | | (ICD-10-CM) | [phone] | | | | | | - [...] + + | 06/05/ | Office | [facility] | Aaron Rodriguez, | Dizziness (Primary | | 2017 | Visit | MED CTR THERAPY PT | MD [address] | Dx); Impaired | | | | OP [address] | [place] | mobility and | | | | [place] | [phone] | activities of daily | | | | [address] | | living; Concussion | | | | [phone] | Lakeshia Cleary, PT | with brief (less | | | | | [address] | than one hour) loss | | | | | [place] | of consciousness; | | | | | [address] | Intractable acute | | | | [...] from t he original. [facility] THERAPY PT OP [address] [place] [address] Physical Therapy Daily Treatment Note Date: 06/05/2016 [...] Rehab Precautions Office Visit from 05/01/2016 in [facility] CTR THERAPY PT OP Rehab [...] [place] | | | | | | [address] | | | | | | | | +--------+---------+ + + + | 11/24/ | Office | Cardiology | [place], | | | 2020 | Visit | | SINDHU Erickson [address] | | | | | | [place], | | | | | | [place] [address] | | | | | | [phone] | | | | | | | [...]
--- OUTSIDE RECORDS SUMMARY | ~2019-02-28 | XMS | Encounter Summary ---
Demographics + + + | Address | [address] | | | [place] [address] | + + + | Home Phone [...] Team Providers + +------+ + | Care Materials Supervisor Name | Role | Phone | [...] ST | | | | | [address] [place] | [place] | | | | | [place] [address] | [address] | | | | | [phone] | | | +--------+ + + + [...] | | | | | | [place] [address] | | | | | | [phone] | | | | | | | | +--------+---------+ + + + documented as of this encounter Visit Diagnoses Not on filedocumented in this encounter"
--- OUTSIDE RECORDS SUMMARY | ~2019-02-28 | XMS | Encounter Summary ---
Demographics + + + | Address | [address] | | | [place] [address] | + + + | Home Phone [...] Providers + +------+ + | Care Digital Watch Assembler Name | Role | Phone [...] + + | 02/02/ | Off-Site | [facility] | Jared Mcdonough, | Paroxysmal atrial | | 2015 | Visit | CARDIOLOGY [address] | MD [address] [place] | tachycardia (HCC) | | | | [place], | [place], | (Primary Dx); | | | | [place] [address] | [place] [address] | Syncope, unspecified | | | | [phone] | [phone] | syncope type; | | | | | | Palpitations | | | | | Ashlee Allison ARNP | | | | | | [address] | | | | | | [place] | | | | | | [id number] | | | | | | | [...] She takes this daily Respiratory Therapy Supplies [facility] Please provide patient with necessary CPAP supplies ( she did not specify, okay to send order as appropriate) Diagnosis Code(s)327.23 . Length of Need 99 months. Please send order to [facility]. 1 each 0 Respiratory Therapy Supplies [facility] Change CPAP back to 11-14 cm H2O. All necessary suppl ies. No oxygen bleed in. Diagnosis Code(s)327.23. Length of Need: Lifetime. Please send orde r to [facility]. This is not a [...] She is in a class II of [place] [facility] [employer] functional class. There is no [...] concerns. Electronically signed by: Jared Mcdonough MD [facility] 02/02/2015 Portions of this chart may have been created with [employer] voice recognition software. Occasi onal wrong-word or [...] | | | | | | [place] [address] | | | | | | [phone] | | | | | | | | +--------+---------+ + + + documented as of this encounter Visit Diagnoses + + | Diagnosis | + + | Paroxysmal atrial tachycardia (HCC) - Primary Paroxysmal supraventricular tachycardia | + + | Syncope, unspecified syncope type | + + | Palpitations | + + documented in this encounter
--- OUTSIDE RECORDS SUMMARY | ~2019-02-28 | XMS | Encounter Summary ---
Demographics + + + | Address | [address] | | | [place] [address] | + + + | Home Phone [...] Providers + +------+ + | Care Academic Support Center Director Name | Role | Phone | [...] | 06/27/ | Telephone | [facility] | Weber, Andriy | Other | | 2018 | | [address] | MD [address] | | | | | [place] | [address] | | | | | [address] | [place] [address] | | | | | [phone] | [phone] | | | | | | | [...] [place] | | | | | | [address] | | | | | | | | +--------+---------+ + + + | 11/24/ | Office | Cardiology | [place], | | | 2019 | Visit | | SINDHU Erickson [address] | | | | | | [place] | | | | | | [place] [address] | | | | | | [phone] | | | | | | | | +--------+---------+ + + + documented as of this encounter Visit Diagnoses Not on filedocumented in this encounter"
--- OUTSIDE RECORDS SUMMARY | ~2019-02-28 | XMS | Encounter Summary ---
Demographics + + + | Address | [address] | | | [place] [address] | + + + | Home Phone [...] Providers + +------+ + | Care Client Sales And Service Officer Name | Role | Phone [...] + + | 06/02/ | Office | [facility] | Andriy Weber | Pyuria (Primary Dx) | | 2018 | Visit | [address] | MD [address] | | | | | [place] | [facility] | | | | | [address] | [place] [address] | | | | | [phone] | [phone] | | | | | | | [...] a past medical history of Adrenal insufficiency ([facility]); Anxiety; Asthma; 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 Length of Need 99 months. Please send order to [facility]. 1 each 0 Respiratory Therapy Supplies [facility] Change CPAP back to 11-14 cm H2O. All necessary suppl ies. No oxygen bleed in. Diagnosis Code(s)327.23. Length of Need: Lifetime. Please send orde r to [facility]. This is not a new order, [...] urethra was dilated today to a 26 [place] with [place] sounds. She tolerated this wel l without [...] underwent a urethral dilatation to a 26 [place] in size. I've asked her to call [...] This document was generated in part using [employer] voice recognition software. Although ever y effort is made to edit the content, job recruiter errors may occur. Occasional wrong word or [...] [place] | | | | | | [address] | | | | | | | | +--------+---------+ + + + | 11/24/ | Office | Cardiology | [place], | | | 2019 | Visit | | SINDHU Erickson [address] | | | | | | [place], | | | | | | [place] [address] | | | | | | [phone] | | | | | | | [...] 1.001 - 1.030 | | | | [place], | | | | | | [facility], [...]
--- OUTSIDE RECORDS SUMMARY | ~2019-02-28 | XMS | Encounter Summary ---
Demographics + + + | Address | [address] | | | [place] [address] | + + + | Home Phone [...] Team Providers + +------+ + | Care Site Administrator Name | Role | Phone | [...] + | 12/08/ | Telephone | [facility] | Jared Mcdonough, | Appointment | | 2014 | | CARDIOLOGY [address] | [address] [place] | | | | | [place], | [place], | | | | | [place] [address] | [place] [address] | | | | | [phone] | [phone] | | | | | | | [...] [place] | | | | | | [address] | | | | | | | | +--------+---------+ + + + | 11/24/ | Office | Cardiology | [place], | | | 2019 | Visit | | SINDHU Erickson [address] | | | | | | [place], | | | | | | [place] [address] | | | | | | [phone] | | | | | | | | +--------+---------+ + + + documented as of this encounter Visit Diagnoses Not on filedocumented in this encounter"
--- OUTSIDE RECORDS SUMMARY | ~2019-02-28 | XMS | Encounter Summary ---
Demographics + + + | Address | [address] | | | [place] [address] | + + + | Home Phone [...] Providers + +------+ + | Care Rn Call Center Name | Role | Phone | [...] | | | | [facility] | [address] | n [address] | | | | | EXERCISE | [place], | [place] | | | | | | [place] [address] | [place], [place] | | | | | | Phone: | [address] | | | | | | [phone] | Phone: | | | | | | Fax: | [phone] | | | | | | [phone] | Fax: | | | | | | | [phone] | +--------+--------+ + + + + Encounter Details +--------+---------+ + + + | Date | Type | Department | Care Team | Description | +--------+---------+ + + + | 06/25/ | Office | [facility] | Jared Mcdonough, | Chronic obstructive | | 2017 | Visit | MED CTR CARDIAC | [address] | pulmonary disease, | | | | REHABILITATION [address] | [place], | unspecified COPD | | | | [address] [place] [place] | [place] [address] | type (HCC) (Primary | | | | [place] [address] | [phone] | Dx) | | | | [phone] | | | +--------+---------+ + + + [...] of this encounter Progress Nima Plunkett-Tricia Crawley, [place] - 06/25/2016 1:10 PM PDT [facility] [address] [facility] [address] Cardiac Rehab Date: 06/25/2016 Patient Information Patient [...] | | | | | [place] [address] | | | | | | [phone] | | | | | | | | +--------+---------+ + + + documented as of this encounter Visit Diagnoses + + | Diagnosis | + + | Chronic obstructive pulmonary disease, unspecified COPD type (HCC) - Primary | + + documented in this encounter"
--- OUTSIDE RECORDS SUMMARY | ~2019-02-28 | XMS | Encounter Summary ---
Demographics + + + | Address | [address] | | | [place] [address] | + + + | Home Phone [...] Team Providers + +------+ + | Care Metrology Specialist Name | Role | Phone | [...] | with brief | [address] | [address] | | | | n | loss of | [address] | [place], | | | | | consciousnes | [place] | [place] [address] | | | | | s | [place] [address] | Phone: | | | | | Post-concuss | Phone: | [phone] | | | | | ion vertigo | [phone] | Fax: | | | | | [phone] | Fax: | [phone] | | | | | (ICD-10-CM) | [phone] | | | | | | - [...] + + | 05/01/ | Office | [facility] | Aaron Rodriguez, | Concussion with | | 2017 | Visit | MED CTR THERAPY PT | MD [address] | brief (less than one | | | | OP [address] | [place] | hour) loss of | | | | [place] | [id number] | consciousness | | | | [address] | | (Primary Dx); | | | | [phone] | Lakeshia Cleary, PT | Dizziness; Impaired | | | | | [address] | mobility and | | | | | [place] | activities of daily | | | | | [address] | living; Intractable | | | | [...] limited or restricted Treatment Plan/Interventions PT EvaluationPT Re-[id number] - Therapeutic Cmncpipv95932 - Neuromuscular Reeducation9 7116 - Gait Eogqzcmm62328 - Therapeutic Nfrxzuknbl69581 - Manual Kwfmgqz86879 - Self Care/Ho me Management Electronically signed by: Lakeshia Barkley PT, 05/01/2016 12:44 Patient Name: Rosario Malik/: 1965/ Associated attestation - Aaron Rodriguez MD - 05/01/2016 12:52 PM PSTAaron Rodriguez MD (Jr.) Lakeshia Barkley, PT - 05/01/2016 9:53 AM PSTFormatting of this note might be different from t zachariah original. [facility] CTR THERAPY PT OP [address] [place] [address] Physical Therapy Initial Assessment Date: 05/01/2016 Patient [...] Pt lives in a 2 level home ([facility] downstairs) no railing so is very careful. Social History Social History Marital Status: Single Spouse Name: N/A Number of Children: 1 Years of Education: 13 Occupational History [employer] Social History Main Topics Smoking status: [...] [facility]) 10/28/2012 Overview: Managed by [facility] along with hypothyroidism Osteoarthritis Tachycardia Asthma Emphysema Migraine Sleep apnea uses BiPAP Oxygen dependent uses 2.5 liters most of the time Past Surgical History Procedure Laterality Date Hammer toe surgery right sided Hiatal hernia repair Hiatal hernia Kirk and bso Ovarian cysts, not cancer Colonoscopy 03/2010 Colonoscopy [facility] Knee surgery right Wrist surgery right Hysterectomy Other surgical history 02/28/2014 [facility] with Radial approach; Laterality: Left; Surgeon: Jared Mcdonough MD; Location: [facility] LAB Tonsillectomy Age 6 Turbt N/A 11/22/2015 Procedure: Cystoscopy, Hydrodistention & Bladder Biopsy; Surgeon: Yinka Melendez; Location: [facility] MAIN OR Hernia repair 11/29/2015 [facility] Family History Problem Relation Age of [...] Rehab Precautions Office Visit from 05/01/2016 in [facility] CTR THERAPY PT OP Rehab Precautions [...] performing more ambitious activities, like sports, dancing, stamping operator such a s sweeping or putting dishes [...] Certification To: 07/24/2016 Treatment Plan/Interventions PT EvaluationPT Re-Casnpzclio13376 - Therapeutic Tysolarx48602 - Neuromuscular Reeducation9 7116 - Gait Xymhsdij71317 - Therapeutic Tacvoqsjqq27985 - Manual Nebjebb02268 - Self Care/Ho me Management Patient and/or [...] [place] | | | | | | [address] | | | | | | | | +--------+---------+ + + + | 11/24/ | Office | Cardiology | [place], | | | 2020 | Visit | | SINDHU Erickson [address] | | | | | | [place], | | | | | | [place] [address] | | | | | | [phone] | | | | | | | [...]
--- OUTSIDE RECORDS SUMMARY | ~2019-02-28 | XMS | Encounter Summary ---
Demographics + + + | Address | [address] | | | [place] [address] | + + + | Home Phone [...] Providers + +------+ + | Care Advanced Research Programs Director Name | Role | Phone [...] | | | | | pulmonary | [address] | [address] | | | | | disease, | [place], | [place] | | | | | unspecified | [place] [address] | [place], [place] | | | | | COPD type | Phone: | [address] | | | | | (HCC) | [phone] | Phone: | | | | | Pulmonary | Fax: | [phone] | | | | | emphysema, | [phone] | Fax: | | | | | unspecified | | [phone] | | | | | emphysema | | | | | | | type ([facility]) | | | +--------+ + + + + + Encounter Details +--------+---------+ + + + | Date | Type | Department | Care Team | Description | +--------+---------+ + + + | 05/07/ | Office | [facility] | Danieljeremyjose Jared, | Mild persistent | | 2017 | Visit | MED CTR CARDIAC | [address] | asthma without | | | | REHABILITATION [address] [place], | complication | | | | [address] [place] | [place] [address] | (Primary Dx); | | | | [place] [address] | [phone] | Chronic obstructive | | | | [phone] | | pulmonary disease, | | | [...] of this encounter Progress Notes Tricia Herron, YARD ASSOCIATE - 05/07/2016 1:52 PM PDTMsChris Malik is [...] | | | [place] | | | | | | [address] | | | | | | | | +--------+---------+ + + + | 11/24/ | Office | Cardiology | Flores, | | | 2019 | Visit | | SINDHU Erickson [address] | | | | | | [place], | | | | | | [place] [address] | | | | | | [phone] | | | | | | | [...]
--- OUTSIDE RECORDS SUMMARY | ~2019-02-28 | XMS | Encounter Summary ---
Demographics + + + | Address | [address] | | | [place] [address] | + + + | Home Phone [...] Team Providers + +------+ + | Care Leguillon Debeader Name | Role | Phone | + [...] | (obstructive | [address] | [place] | | | | | sleep | [place] | [place], | | | | | apnea) | [place], [place] | [place] [address] | | | | | Procedures | [address] | Phone: | | | | | [place] POLYSOM | Phone: | [phone] | | | | | 6/>YRS SLEEP | [phone] | Fax: | | | | | 4/> ADDL | Fax: | [phone] | | | | | ALESSIA ATTND | [phone] | | | | | | [place] POLYSOM | | | | | | [...] sleep apnea) | | | | [address] [place] | [place] | (Primary Dx) | | | | [place] [address] | [address] | | | | | [phone] | | | +--------+ + + + [...] [place] | | | | | | [address] | | | | | | | | +--------+---------+ + + + | 11/24/ | Office | Cardiology | [place], | | | 2019 | Visit | | SINDHU Erickson [address] | | | | | | [place], | | | | | | [place] [address] | | | | | | [phone] | | | | | | | | +--------+---------+ + + + + + +--------+ + + | Name | Type | Priori | Associated Diagnoses | Order Schedule | | | | ty | | | + + +--------+ + + | * [facility] - | Outpatient | [...]
--- OUTSIDE RECORDS SUMMARY | ~2019-02-28 | XMS | Encounter Summary ---
Demographics + + + | Address | [address] | | | [place] [address] | + + + | Home Phone [...] Team Providers + +------+ + | Care Textiles Sales Representative Name | Role | Phone [...] | apnea (adult) | | | | [place], | | (pediatric) (Primary | | | | [place] [address] | | Dx) | | | | [phone] | | | +--------+ + + + [...] [place] | | | | | | [address] | | | | | | | | +--------+---------+ + + + | 11/24/ | Office | Cardiology | Flores, | | | 2019 | Visit | | SINDHU Erickson [address] | | | | | | [place], | | | | | | [place] [address] | | | | | | [phone] | | | | | | | | +--------+---------+ + + + documented as of this encounter Visit Diagnoses + + | Diagnosis | + + | Obstructive sleep apnea (adult) (pediatric) - Primary | + + documented in this encounter"
--- OUTSIDE RECORDS SUMMARY | ~2019-02-28 | XMS | Encounter Summary ---
Demographics + + + | Address | [address] | | | [place] [address] | + + + | Home Phone [...] Providers + +------+ + | Care Chemical Radiation Technician Name | Role | Phone | [...] & | | | | [address] | [place] | Bladder Biopsy | | | | [place], [place] | [place] [address] | | | | | [address] | [phone] | | | | | [phone] | | | +--------+---------+ + + + [...] (the anesthesiologist will discuss these with you) 6868-9978 [employer]. [address] [place] [address]. All righ ts reserved. This information is [...] | | | | send order to [facility] | | | | [...] | 0 | 10/13/19 | | | Vgdjvgwwmj-QMZA-Euvn | mouth as needed. | | | 16 | 7 | | -Cod 23-318-34-30 MG | | | | | | [...] [place] | | | | | | [address] | | | | | | | | +--------+---------+ + + + | 11/24/ | Office | Cardiology | [place], | | | 2019 | Visit | | SINDHU Erickson [address] | | | | | | [place], | | | | | | [place] [address] | | | | | | [phone] | | | | | | | [...] ST. | [address] | [place], [place] | [phone] | | [facility] | | [address] | | | - LABORATORY | | [...] mild chronic mucosal | | | inflammation. JVR:[facility]:C2NR GROSS DESCRIPTION: The specimen is | | | received in three parts. A. The specimen is labeled and | | | designated "[place], posterior bladder wall". Received | | | in formalin is one pink colored tissue fragment, it measures 0.25 x | | | 0.4 cm. all into (A1). B. The specimen is labeled and designated | | | "[place], Rosario Rea, right bladder wall". Received in formalin is | | | one pink colored tissue fragment, 0.3 x 0.3 cm, all into (B1). C. | | | The specimen is labeled and designated "[place], Rosario Rea, left | | | bladder wall". Received in formalin is one pink colored tissue | | | fragment, it measures 0.3 x 0.3 cm, all into (C1). yt:CLR:[facility] | | | MICROSCOPIC EXAMINATION: Histologic sections of all submitted blocks | | | are examined by light microscopy. These findings, together with the | | | gross examination, support the pathologic diagnosis. PERFORMING | | | LABORATORY: Tissue processing and slide preparation were performed by | | | [facility], [address] [place] [address], [address], [place] [address] | | | (Production Internship: Kale Estrella M.D.; CLIA#: [id number]). | | | Professional interpretation was performed by [facility], | | | [facility], [address] | | | [place] [address] (Production Internship: Kale Estrella M.D.; CLIA#: | | | [id number]). Diagnostician: Kale Estrella MD Pathologist | | [...] | | | | | | use [place] 10/325 if ordered. If | | | [...]
--- OUTSIDE RECORDS SUMMARY | ~2019-02-28 | XMS | Encounter Summary ---
Demographics + + + | Address | [address] | | | [place] [address] | + + + | Home Phone [...] + +------+ + | Care Auto Body Detailer Name | Role | Phone | + +------+ + | Juan Cherry DO | PCP | | + +------+ + Reason for Visit +--------+ + | Reason | Comments | +--------+ + | Other | referral to electrical tryout person or dietian | +--------+ + Encounter Details +--------+ + + + + | Date | Type | Department | Care Team | Description | +--------+ + + + + | 04/03/ | Telephone | [facility] | [place], | Other (referral to | | 2017 | | CARDIOLOGY [address] | SINDHU Erickson [address] | electrical tryout person or | | | | [place], | [place], | dietian) | | | | [place] [address] | [place] [address] | | | | | [phone] | [phone] | | | | | | | [...] | | | | | | [place] [address] | | | | | | [phone] | | | | | | | | +--------+---------+ + + + documented as of this encounter Visit Diagnoses Not on filedocumented in this encounter"
--- OUTSIDE RECORDS SUMMARY | ~2019-02-28 | XMS | Encounter Summary ---
Demographics + + + | Address | [address] | | | [place] [address] | + + + | Home Phone [...] Providers + +------+ + | Care Tank Farm Operator Name | Role | Phone | [...] | Concussion | Aaron Kim MD | Renovation Plant Supervisor [address] | | | Required | | with brief | [address] | [place] | | | | | loss of | [address] | [place], [place] | | | | | consciousnes | [place], | [address] | | | | | s Word | [place] [address] | Phone: | | | | | finding | Phone: | [phone] | | | | | difficulty | [phone] | Fax: | | | | | [phone] | Fax: | [phone] | | | | | (ICD-10-CM) | [phone] | | | | | | - [...] + + | 05/23/ | Hospital | [facility] | Aaron Rodriguez, | Concussion with | | 2017 | Encounter | MED CTR SPEECH | MD [address] | brief (less than one | | | | THERAPY [address] | [place], [place] | hour) loss of | | | | [place], | [address] | consciousness | | | | [place] [address] | | (Primary Dx); | | | | [phone] | Kathi Soto, | Impaired memory; | [...] | 0 | 10/13/19 | | | Ijyycyojrl-SDRL-Srbr | mouth as needed. | | | 16 | 7 | | -Cod [id number] MG | | | | | | [...] Speech Pathologist - 05/23/2016 7:06 PM PDT [facility]APY [address] [facility] [address] Speech Therapy Daily Treatment Note Date: 05/23/2016 [...] from 05/01/2016 in [facility] THERAPY PT OP Rehab Precautions Precautions None Rehab Learning Style WSM INSURANCE ADVISOR OP EVAL from 05/16/2016 in [facility] SPEECH THERAPY Office V isit from 05/01/2016 in [facility] THERAPY PT OP Learning Style [...] | | | | [place], [place] | | | | | | [address] | | | | | | | | +--------+---------+ + + + | 11/24/ | Office | Cardiology | [place], | | | 2019 | Visit | | GeorginaSINDHU [address] | | | | | | [place], | | | | | | [place] [address] | | | | | | [phone] | | | | | | | [...]
--- OUTSIDE RECORDS SUMMARY | ~2019-02-28 | XMS | Encounter Summary ---
Demographics + + + | Address | [address] | | | [place] [address] | + + + | Home Phone [...] Team Providers + +------+ + | Care Mule Developer Name | Role | Phone | + +------+ + | Juan Cherry DO | PCP | | + +------+ + Encounter Details +--------+---------+ + + + | Date | Type | Department | Care Team | Description | +--------+---------+ + + + | 10/31/ | Office | [facility] | Andriy Weber | Interstitial | | 2016 | Visit | [address] | MD [address] | cystitis (Primary | | | | [place], [place] | [address] [place] | Dx) | | | | [address] | [place] [address] | | | | | [phone] | | | | | | | [...] have not thoroughly proofread this note, and compressor station operator err ors may occur. documented in th is encounter Plan of Treatment +--------+---------+ + + + | Date | Type | Specialty | Care Team | Description | +--------+---------+ + + + | 03/31/ | Office | Pulmonology | Mukul Clark MD | | | 2019 | Visit | | [address] | | | | | | [place], [place] | | | | | | [address] | | | | | | | | +--------+---------+ + + + | 11/24/ | Office | Cardiology | [place], | | | 2019 | Visit | | SINDHU Erickson [address] | | | | | | [place], | | | | | | [place] [address] | | | | | | [phone] | | | | | | | | +--------+---------+ + + + documented as of this encounter Visit Diagnoses + + | Diagnosis | + + | Interstitial cystitis - Primary Chronic interstitial cystitis | + + documented in this encounter"
--- OUTSIDE RECORDS SUMMARY | ~2019-02-28 | XMS | Encounter Summary ---
Demographics + + + | Address | [address] | | | [place] [address] | + + + | Home Phone [...] Providers + +------+ + | Care Machine Etcher Name | Role | Phone | + [...] | RN | | | | | [place], | | | | | | [place] [address] | | | | | | [phone] | | | +--------+ + + + [...] | | | | [place] | | | | | | [address] | | | | | | | | +--------+---------+ + + + | 11/24/ | Office | Cardiology | [place], | | | 2020 | Visit | | SINDHU Erickson [address] | | | | | | [place], | | | | | | [place] [address] | | | | | | [phone] | | | | | | | | +--------+---------+ + + + documented as of this encounter Visit Diagnoses + + | Diagnosis | + + | GARRY (obstructive sleep apnea) - Primary Obstructive sleep apnea (adult) (pediatric) | + + documented in this encounter"
--- OUTSIDE RECORDS SUMMARY | ~2019-02-28 | XMS | Encounter Summary ---
Demographics + + + | Address | [address] | | | [place] [address] | + + + | Home Phone [...] Team Providers + +------+ + | Care Agriculture Sales Account Manager Name | Role | Phone | [...] [address] | | | | | [place], | [place], | | | | | [place] [address] | [place] [address] | | | | | [phone] | | | | | | | [...] [place] | | | | | | [address] | | | | | | | | +--------+---------+ + + + | 11/24/ | Office | Cardiology | [place], | | | 2019 | Visit | | SINDHU Erickson [address] | | | | | | [place], | | | | | | [place] [address] | | | | | | [phone] | | | | | | | [...] ST. | [address] | [place] | [phone] | | [facility] | | [address] | | | - LABORATORY | | [...]
--- OUTSIDE RECORDS SUMMARY | ~2019-02-28 | XMS | Encounter Summary ---
Demographics + + + | Address | [address] | | | [place] [address] | + + + | Home Phone [...] Team Providers + +------+ + | Care Reflow Operator Name | Role | Phone | [...] | | | | Rehabilitatio | | [place] [address] | | | | n | | [address] | [place], | | | | | | [place], | [place] [address] | | | | | | [place] | Phone: | | | | | | [address] | [phone] | | | | | | Phone: | Fax: | | | | | | [phone] | [phone] | | | | | | Fax: | | | | | | | [phone] | | +--------+--------+ + + + + Encounter Details +--------+---------+ + + + | Date | Type | Department | Care Team | Description | +--------+---------+ + + + | 03/28/ | Office | [facility] [place] | Aaron Santoyo, | Concussion with | | 2016 | Visit | PHYSIATRY [address] | [address] | brief loss of | | | | [place], | [place], [place] | consciousness | | | | [place] [address] | [address] | (Primary Dx); | | | | [phone] | | Post-concussion | | | | [...] MD - 03/28/2016 11:41 AM PST [facility] PHYSIATRY [address] [place] [address] OFFICE NOTE AARON SANTOYO JR, MD Patient: JADYN SCHMITZ Admitting: MR #: [id number] LOC: PT TYPE: Adm Date: 03/28/2016 : [...] attacks. CURRENT MEDICATIONS: Albuterol inhaler. DuoNeb nebulized. Xwvpopijcr-Ppwwizs-gcgwambg-codeine as needed for headache. Advair inhaler. Gabapentin 800 mg 3 times per day. 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 2. Postconcussion [...] Transcribed on 03/28/2016 12:22:07 by drew job# [id number] Confirmation #: [id number] cc: YONG CHERRY DO [facility], Aaron Kim MD - 03/28/2016 11:21 AM PSTThis office note has been dictated. Report Confirmation# [id number] signed by Aaron Santoyo MD at 03/28/2016 [...] [place] | | | | | | [address] | | | | | | | | +--------+---------+ + + + | 11/24/ | Office | Cardiology | [place], | | | 2019 | Visit | | SINDHU Erickson [address] | | | | | | [place], | | | | | | [place] [address] | | | | | | [phone] | | | | | | | [...]
--- OUTSIDE RECORDS SUMMARY | ~2019-02-28 | XMS | Encounter Summary ---
Demographics + + + | Address | [address] | | | [place] [address] | + + + | Home Phone [...] Providers + +------+ + | Care Supervisor Instant Potato Processing Name | Role | Phone | + [...] W | Loreta Alonso MD | [facility] (Primary Dx); | | | | [place], | | GARRY on CPAP; Tobacco | | | | [place] [address] | | abuse | | | | [phone] | | | +--------+---------+ + + + [...] done after today. She is moving to [place] in August. 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 Please send order to [facility]. This is not a new [...] 02/24/2011 Tdap 01/22/2008 Dates: 05/11/12-08/08/12 Machine type: [employer] Company: [facility] CPAP Pressure: 13 cmH2O AHI: 6.1 events/hour [...] try switching her back to auto at [id number]. Th raven are not typically central apneas, [...] for 10 days. 2.Change CPAP pressure to 11-15khR7N. 3.Work on smoking cessation. 4.Bring download to next visit. She was advised to call if new pulmonary symptoms were to develop. Return to clinic in 4 weeks, or sooner with concerns. CC: Juan Cherry Portions of this report were transcribed using voice recognition software. Every effort wa s made to ensure accuracy; however, inadvertent computerized balloon tester errors may be pre sent. documented in [...] [place] | | | | | | [address] | | | | | | | | +--------+---------+ + + + | 11/24/ | Office | Cardiology | [place], | | | 2020 | Visit | | SINDHU Erickson [address] | | | | | | [place], | | | | | | [place] [address] | | | | | | [phone] | | | | | | | [...]
--- OUTSIDE RECORDS SUMMARY | ~2019-02-28 | XMS | Encounter Summary ---
Demographics + + + | Address | [address] | | | [place] [address] | + + + | Home Phone [...] Providers + +------+ + | Care Customer Liaison Name | Role | Phone | + +------+ + | Juan Cherry DO | PCP | | + +------+ + Encounter Details +--------+ + + + + | Date | Type | Department | Care Team | Description | +--------+ + + + + | 04/02/ | Hospital | [facility] | Dio Yun | | | 2017 | Encounter | MED CTR NUCLEAR | MD [address] | | | | | MEDICINE [address] | [place] [address] | | | | | [place], | [place], [place] | | | | | [place] [address] | [address] | | | | | [phone] | [phone] | | | | | | | [...] | | | | | | | [facility]. | | | | | [...] | 0 | 10/13/19 | | | Bqzprykcxo-GMIM-Dlpu | mouth as needed. | | | 16 | 7 | | -Cod 31-221-45-30 MG | | | | | | [...] | | | | | | [place] [address] | | | | | | [phone] | | | | | | | [...] + + | Performing | Address | City[facility] | Phone Number | | Organization | | | | + +---------+ + + | [facility] | | | | + +---------+ + + documented in this encounter Visit Diagnoses Not on filedocumented in this encounter
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
--- OUTSIDE RECORDS SUMMARY | ~2019-02-28 | XMS | Encounter Summary ---
Demographics + + + | Address | [address] | | | [place] [address] | + + + | Home Phone [...] Providers + +------+ + | Care Steam Blocker Name | Role | Phone | + [...] + + | 04/12/ | [facility] | [facility] | [place], | COPD exacerbation | | 2013 | Visit | PULMONARY [address] | Loreta Alonso MD | ([facility]) (Primary Dx); | | | | [place], | | Sprain of chest | | | | [place] [address] | | wall; GARRY | | | | [phone] | | (obstructive sleep | | | [...] perform them regularly on you r own. 6609-0144 [facility], [address] [place] [address], [place] [address]. All rights reserve d. This information is not intended as a substitute for professional medical care. Always fo llow your healthcare professional's instructions. documented in this encounter Progress Notes Loreta London MD - 04/12/2013 9:12 AM PSTFormatting of this note might be differe nt from the original. Pulmonary Follow Up Note MD Ayaka Rasheed Pulmonary and Critical Care [facility] [address] [place], [address] [facility] Rosario Malik is a 48 [...] and machine. She took it in to [facility] today for servicing. 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 3 tablet 0 Respiratory Therapy Supplies [facility] Please provide patient with necessary CPAP supplies ( she did not specify, okay to send order as appropriate) Diagnosis Code(s)327.23 . Length of Need 99 months. Please send order to [facility]. 1 each 0 Respiratory Therapy Supplies [facility] Change CPAP back to 11-14 cm H2O. All necessary suppl ies. No oxygen bleed in. Diagnosis Code(s)327.23. Length of Need: Lifetime. Please send orde r to [facility]. This is not a new [...] exacerbation to exacerbat ion since return from [place] without clear explanation. Factors to consider: medication [...] not been using her CPAP as [facility] as she should per last downloads and [...] made to ensure accuracy; however, inadvertent computerized rewinder errors may be pre sent. documented in [...] [place] | | | | | | [id number] | | | | | | | | +--------+---------+ + + + | 11/24/ | Office | Cardiology | [place], | | | 2019 | Visit | | SINDHU Erickson [address] | | | | | | [place], | | | | | | [place] [address] | | | | | | [phone] | | | | | | | | +--------+---------+ + + + + + +--------+ + + | Name | Type | Priori | Associated Diagnoses | Order Schedule | | | | ty | | | + + +--------+ + + | Ambulating oximetry, | Respiratory | Routin | COPD exacerbation | Expected: | | clinic, | Care | e | ([facility]) | 04/12/2013, Expires: | | [...] + + | Performing | Address | City/[facility] | Phone Number | | Organization | | | | + + + + + | [facility] | [address] | [place] | [phone] | | [facility] | | [address] | | | - LABORATORY | | | | + + + + + | [facility] | [address] | [place] | | | [facility] | | [address] | | | - LABORATORY | | [...]
--- OUTSIDE RECORDS SUMMARY | ~2019-02-28 | XMS | Encounter Summary ---
Demographics + + + | Address | [address] | | | [place] [address] | + + + | Home Phone [...] Team Providers + +------+ + | Care Bias Cutter Helper Name | Role | Phone | [...] + + | 07/15/ | Office | [facility] | Kevin Sandoval, | COPD exacerbation | | 2013 | Visit | PULMONARY [address] | [address] | ([facility]) (Primary Dx); | | | | [place], | [place], [place] | COPD (chronic | | | | [place] [address] | [address] | obstructive | | | | [phone] | | pulmonary disease) | | | | | | ([facility]); Hypoxemia | +--------+---------+ + + [...] are not enrolled in cardiac/pulmonary rehabilitation or [facility] er physical therapy. They have not completed [...] ([facility]) 10/28/2012 Overview: Managed by [facility] along with hypothyroidism Osteoarthritis Social History: She [...] months. Please send order to [facility] D isp: 1 each, Rfl: 0 Respiratory Therapy Supplies MISC, Change CPAP back to 11-14 cm H2O. All necessary supplies . No oxygen bleed in. Diagnosis Code(s)327.23. Length of Need: Lifetime. Please send order t [facility]. This is not a [...] breath sounds few expiratory wheezes bilaterally. No fine craft artist ckles or rhonchi. No dullness to percussion. [...] | | | | | | [place] [address] | | | | | | [phone] | | | | | | | [...] | 07/15/2014 | | | | | ([facility]) | | + + +--------+ + + [...]
--- OUTSIDE RECORDS SUMMARY | ~2019-02-28 | XMS | Encounter Summary ---
Demographics + + + | Address | [address] | | | [place] [address] | + + + | Home Phone [...] Team Providers + +------+ + | Care Wire Winder Name | Role | Phone | [...] + | 05/28/ | Refill | [facility] | Kade Hoffman MD | Medication Problem | | 2013 | | OCCUPATIONAL HEALTH | [address] [facility] | ([facility]) | | | | [address] | [place] [address] | | | | | [address] [facility] | [phone] | | | | | [place], [place] | | | | | | [address] | | | | | | [phone] | | | +--------+--------+ + + + [...] | | | | | | [place] [address] | | | | | | [phone] | | | | | | | | +--------+---------+ + + + documented as of this encounter Visit Diagnoses Not on filedocumented in this encounter"
--- OUTSIDE RECORDS SUMMARY | ~2019-02-28 | XMS | Encounter Summary ---
Demographics + + + | Address | [address] | | | [place] [address] | + + + | Home Phone [...] Team Providers + +------+ + | Care Indexer Name | Role | Phone | + [...] monitoring (Primary | | | | [address] [facility], | address | Dx) | | | | [address] [place] | | | | | | [place] [address] | | | | | | [phone] | | | +--------+ + + + [...] [place] | | | | | | [address] | | | | | | | | +--------+---------+ + + + | 11/24/ | Office | Cardiology | [place], | | | 2019 | Visit | | SINDHU Erickson [address] | | | | | | [place], | | | | | | [place] [address] | | | | | | [phone] | | | | | | | [...] mL/min/1.73m2 | [facility] | | | [place] | | | MEDICAL | | | [...] + | [facility] | [address] | [place] | [phone] | | [facility] | | [address] | | | - LABORATORY | | | | + + + + + | [facility] | [address] | [place] | | | [facility] | | [address] | | | - LABORATORY | | [...] + | [facility] | [address] | [place], [place] | [phone] | | [facility] | | [address] | | | - LABORATORY | | | | + + + + + | [facility] | [address] | [place], [place] | | | [facility] | | [address] | | | - LABORATORY | | | | + + + + + documented in this encounter Visit Diagnoses + + | Diagnosis | + + | Therapeutic drug monitoring - Primary Encounter for therapeutic drug monitoring | + + documented in this encounter"
--- OUTSIDE RECORDS SUMMARY | ~2019-02-28 | XMS | Encounter Summary ---
Demographics + + + | Address | [address] | | | [place] [address] | + + + | Home Phone [...] Providers + +------+ + | Care Cnc Machinist 2Nd Shift Name | Role | Phone | + +------+ + | Juan Cherry DO | PCP | | + +------+ + Encounter Details +--------+ + + + + | Date | Type | Department | Care Team | Description | +--------+ + + + + | 02/28/ | Hospital | [facility] | Jared Mcdonough, | Other chest pain | | 2015 | Encounter | MED CTR CV INTRA OP | MD [address] | | | | | [address] | [place], | | | | | [place], [place] | [place] [address] | | | | | [address] | [phone] | | | | | [phone] | | | +--------+ + + + [...] | | | | order to [facility]. | | | | | [...] [place] | | | | | | [address] | | | | | | | | +--------+---------+ + + + | 11/24/ | Office | Cardiology | [place], | | | 2019 | Visit | | SINDHU Erickson [address] | | | | | | [place], | | | | | | [place] [address] | | | | | | [phone] | | | | | | | [...] RECORD NUMBER: | MEDICAL CENTER | | [id number] DATE OF PROCEDURE: 02/28/2014 OPTICAL INSTRUMENT SPECIALIST: | - IMAGING | | Jared Mcdonough [...] Malik, (1965) OF | | PROCEDURE: 02/28/2014PRIMARY SENIOR ANDROID SOFTWARE ENGINEER: Jared Mcdonough MD PROCEDURES | | PERFORMED:Coronary [...] [address] | [place] | [phone] | | [facility] | | [address] | | | - IMAGING | | [...] | 0.94 | 0.60 - 1.30 | [facility] | | | | | mg/dL [...] | | MEDICAL | | | | mL/min/1.22l4Dqlj than | | CENTER - | | [...] + | [facility] | [address] | [place], [place] | [phone] | | [facility] | | [address] | | | - LABORATORY | | | | + + + + + | [facility] | [address] | [place], [place] | | | [facility] | | [address] | | | - LABORATORY | | [...]
--- OUTSIDE RECORDS SUMMARY | ~2019-02-28 | XMS | Encounter Summary ---
Demographics + + + | Address | [address] | | | [place] [address] | + + + | Home Phone [...] Providers + +------+ + | Care Manager Mission Name | Role | Phone | + [...] + | 05/31/ | Telephone | [facility] | Kade Hoffman MD | Follow-up ( appt | | 2013 | | CARE [address] | [address] | for COPD | | | | [place] | [place] [address] | exacerbation ) | | | | [address] | [phone] | | | | | [phone] | | | +--------+ + + + [...] | | | | [place] | | | | | | [address] | | | | | | | | +--------+---------+ + + + | 11/24/ | Office | Cardiology | [place], | | | 2019 | Visit | | SINDHU Erickson [address] | | | | | | [place], | | | | | | [place] [address] | | | | | | [phone] | | | | | | | | +--------+---------+ + + + documented as of this encounter Visit Diagnoses Not on filedocumented in this encounter"
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
--- OUTSIDE RECORDS SUMMARY | ~2019-02-28 | XMS | Encounter Summary ---
Demographics + + + | Address | [address] | | | [place] [address] | + + + | Home Phone [...] Team Providers + +------+ + | Care Rolling Machine Operator Name | Role | Phone | + +------+ + | Juan Cherry DO | PCP | | + +------+ + Encounter Details +--------+ + + + + | Date | Type | Department | Care Team | Description | +--------+ + + + + | 09/09/ | Hospital | [facility] GENER[facility] IP | Conversion | Pain | | 2015 | Encounter | CONVERSION [address] | Transaction, | | | | | [address] | Provider Unknown | | | | | [place], [place] | [phone] | | | | | [address] | | | | | | [phone] | | | +--------+ + + + [...] | | | | | | [facility]. | | | | | [...] | | | | [place] | | | | | | [address] | | | | | | | | +--------+---------+ + + + | 11/24/ | Office | Cardiology | [place], | | | 2019 | Visit | | SINDHU Erickson [address] | | | | | | [place], | | | | | | [place] [address] | | | | | | [phone] | | | | | | | [...]
--- OUTSIDE RECORDS SUMMARY | ~2019-02-28 | XMS | Encounter Summary ---
Demographics + + + | Address | [address] | | | [place] [address] | + + + | Home Phone [...] Team Providers + +------+ + | Care Rivet Sorter Name | Role | Phone | [...] + + | 02/19/ | Office | [facility] | Elda Miranda | Diarrhea (Primary | | 2011 | Visit | CONVENIENT CARE [address] | MD [address] | Dx); Dysuria | | | | [facility] | [address] [facility] | | | | | [place] | [place] [address] | | | | | [address] | [phone] | | | | | [phone] | | | +--------+---------+ + + + [...] allergies reviewed. Review of Systems As per [facility] Objective: Physical Exam Vital signs as noted, nursing notes reviewed. Kyavzxz-bckw-slqncxjgi well-nourished female in no apparent distress, pleasant [...] [place] | | | | | | [address] | | | | | | | | +--------+---------+ + + + | 11/24/ | Office | Cardiology | [place], | | | 2019 | Visit | | SINDHU Erickson [address] | | | | | | [place], | | | | | | [place] [address] | | | | | | [phone] | | | | | | | [...] | 1.015 | | | | | [place], | | | | | | [facility], [...]
--- OUTSIDE RECORDS SUMMARY | ~2019-02-28 | XMS | Encounter Summary ---
Demographics + + + | Address | [address] | | | [place] [address] | + + + | Home Phone [...] Providers + +------+ + | Care Data Recovery Planner Name | Role | Phone | [...] Insomnia; Need for | | | | [place], | | influenza | | | | [place] [address] | | vaccination | | | | [phone] | | | +--------+---------+ + + + [...] Maxim Delgado. Insomnia She continues to have information clerk cashier awakenings. I think this is in part [...] before bedtime. Need for influenza vaccination - [place] FLU VACCINE =>3YO PRESERVATIVE FREE IM 30 [...] [place] | | | | | | [address] | | | | | | | | +--------+---------+ + + + | 11/24/ | Office | Cardiology | [place], | | | 2019 | Visit | | SINDHU Erickson [address] | | | | | | [place], | | | | | | [place] [address] | | | | | | [phone] | | | | | | | [...]
--- OUTSIDE RECORDS SUMMARY | ~2019-02-28 | XMS | Encounter Summary ---
Demographics + + + | Address | [address] | | | [place] [address] | + + + | Home Phone [...] Providers + +------+ + | Care Assembler Motor Vehicle Name | Role | Phone | + [...] + + | 08/20/ | Telephone | [facility] | [place], | LABS | | 2018 | | CARDIOLOGY [address] | Georgina SIGNALS INTELLIGENCE ANALYSIS MANAGER [address] | | | | | [place], | [place], | | | | | [place] [address] | [place] [address] | | | | | [phone] | [phone] | | | | | | | [...] [place] | | | | | | [address] | | | | | | | | +--------+---------+ + + + | 11/24/ | Office | Cardiology | [place], | | | 2019 | Visit | | SINDHU Erickson [address] | | | | | | [place], | | | | | | [place] [address] | | | | | | [phone] | | | | | | | [...]
--- OUTSIDE RECORDS SUMMARY | ~2019-02-28 | XMS | Encounter Summary ---
Demographics + + + | Address | [address] | | | [place] [address] | + + + | Home Phone [...] Team Providers + +------+ + | Care Court Commissioner Name | Role | Phone | + +------+ + PCP | Unavailable | + +------+ + Encounter Details +--------+ + + + + | Date | Type | Department | Care Team | Description | +--------+ + + + + | 11/27/ | Hospital | [facility] | Ozzy Delcid, | | | 2009 | Encounter | MED CTR LABORATORY | MD [address] | | | | | [address] [place] | [place], [place] | | | | | [place], [place] | [address] | | | | | [address] | | | | | | [phone] | | | +--------+ + + + [...] [place] | | | | | | [address] | | | | | | | | +--------+---------+ + + + | 11/24/ | Office | Cardiology | [place], | | | 2019 | Visit | | SINDHU Eirckson [address] | | | | | | [place] | | | | | | [place] [address] | | | | | | [phone] | | | | | | | | +--------+---------+ + + + documented as of this encounter Visit Diagnoses Not on filedocumented in this encounter"
--- OUTSIDE RECORDS SUMMARY | ~2019-02-28 | XMS | Encounter Summary ---
Demographics + + + | Address | [address] | | | [place] [address] | + + + | Home Phone [...] Team Providers + +------+ + | Care Metalsmith Apprentice Name | Role | Phone | + +------+ + | Juna Cherry DO | PCP | | + +------+ + Encounter Details +--------+ + + + + | Date | Type | Department | Care Team | Description | +--------+ + + + + | 04/02/ | Hospital | [facility] | iDo Yun | | | 2017 | Encounter | MED CTR NUCLEAR | MD [address] | | | | | MEDICINE [address] | [place]SEMARY OLMEDO [address] | | | | | [place], | [place], [place] | | | | | [place] [address] | [address] | | | | | [phone] | [phone] | | | | | | | [...] [facility]. | | | | | | | [...] | 0 | 10/13/19 | | | Yxaletzsdr-GAMB-Rbdl | mouth as needed. | | | 16 | 7 | | -Cod 33-375-00-30 MG | | | | | | [...] | | | | | | [place] [address] | | | | | | [phone] | | | | | | | [...] + + | Performing | Address | City[facility] | Phone Number | | Organization | | | | + +---------+ + + | [facility] | | | | + +---------+ + + documented in this encounter Visit Diagnoses Not on filedocumented in this encounter
--- OUTSIDE RECORDS SUMMARY | ~2019-02-28 | XMS | Encounter Summary ---
Demographics + + + | Address | [address] | | | [place] [address] | + + + | Home Phone [...] Providers + +------+ + | Care Insurance Verify Rep Name | Role | Phone | [...] + + | 08/20/ | Telephone | [facility] | [place], | LABS | | 2018 | | CARDIOLOGY [address] | Georgina SOLID PLASTERER [address] | | | | | [place], | [place], | | | | | [place] [address] | [place] [address] | | | | | [phone] | [phone] | | | | | | | [...] [place] | | | | | | [address] | | | | | | | | +--------+---------+ + + + | 11/24/ | Office | Cardiology | [place], | | | 2019 | Visit | | SINDHU Erickson [address] | | | | | | [place], | | | | | | [place] [address] | | | | | | [phone] | | | | | | | [...]
--- OUTSIDE RECORDS SUMMARY | ~2019-02-28 | XMS | Encounter Summary ---
Demographics + + + | Address | [address] | | | [place] [address] | + + + | Home Phone [...] Team Providers + +------+ + | Care Sanding Machine Buffer Name | Role | Phone | [...] + + | 03/10/ | Office | [facility] | [place], | Generalized | | 2019 | Visit | CARDIOLOGY [address] | SINDHU Erickson [address] | weakness; | | | | [place], | [place], | Palpitations; | | | | [place] [address] | [place] [address] | Paroxysmal atrial | | | | [phone] | [phone] | tachycardia (HCC); | | | | [...] Since that time, she was seen in [facility] emergency department due to a fall [...] BNP 45 2018 I reviewed records from [facility] for hospitalization,including H& P, Discharge Summary and lab reports on 2018 which is summarized in the HPI. RESULTS- I reviewed reports from [facility]: No results found. ECHO 01/10/2018 - Normal [...] and v entricular function done at the [facility]. LVEF [...] the lawn from 15:30 to 15:54), di nohmei was returned with no rhythm changes corresponding [...] She is in class II of the [place] [employer] functional clas s. There are [...] She was seen at the ED of [facility] 3 weeks ago and again 1 [...] this chart may have been created with [employer] voice recognition software. Occasi onal wrong-word [...] [place] | | | | | | [id number] | | | | | | | | +--------+---------+ + + + | 11/24/ | Office | Cardiology | [place], | | | 2019 | Visit | | SINDHU Erickson [address] | | | | | | [place] | | | | | | [place] [address] | | | | | | [phone] | | | | | | | [...] MD | | | | | | ([id number]) on 03/11/2018 | | | | | [...]
--- OUTSIDE RECORDS SUMMARY | ~2019-02-28 | XMS | Encounter Summary ---
Demographics + + + | Address | [address] | | | [place] [address] | + + + | Home Phone [...] Providers + +------+ + | Care Commercial Litigation Attorney Name | Role | Phone | [...] + | 08/15/ | Telephone | [facility] | Jared Mcdonough, | Other (new issues) | | 2014 | | CARDIOLOGY [address] | [address] [place] | | | | | [place], | [place], | | | | | [place] [address] | [place] [address] | | | | | [phone] | [phone] | | | | | | | [...] | | | | | | [place] [address] | | | | | | [phone] | | | | | | | | +--------+---------+ + + + documented as of this encounter Visit Diagnoses Not on filedocumented in this encounter"
--- OUTSIDE RECORDS SUMMARY | ~2019-02-28 | XMS | Encounter Summary ---
Demographics + + + | Address | [address] | | | [place] [address] | + + + | Home Phone [...] Team Providers + +------+ + | Care Menagerie Caretaker Name | Role | Phone | + +------+ + PCP | Unavailable | + +------+ + Encounter Details +--------+ + + + + | Date | Type | Department | Care Team | Description | +--------+ + + + + | 09/15/ | Hospital | [facility] | Rocky Rodriguez | | | 2010 | Encounter | MED CTR EMERGENCY | MD Kyler [address] | | | | | CENTER [address] | [address] [facility] | | | | | [place], [place] | [place] [address] | | | | | [address] | [phone] | | | | | [phone] | | | +--------+ + + + [...] | | | | | [place] | | | | | | [address] | | | | | | | | +--------+---------+ + + + | 11/24/ | Office | Cardiology | [place], | | | 2019 | Visit | | SINDHU Erickson [address] | | | | | | [place], | | | | | | [place] [address] | | | | | | [phone] | | | | | | | | +--------+---------+ + + + documented as of this encounter Visit Diagnoses Not on filedocumented in this encounter"
--- OUTSIDE RECORDS SUMMARY | ~2019-02-28 | XMS | Encounter Summary ---
Demographics + + + | Address | [address] | | | [place] [address] | + + + | Home Phone [...] Team Providers + +------+ + | Care Remelt Operator Name | Role | Phone | [...] | CARDIOLOGY [address] | [address] [place] | (Primary Dx) | | | | [place], | [place], | | | | | [place] [address] | [place] [address] | | | | | [phone] | [phone] | | | | | | | [...] Need 99 months. Please send order to [facility]. 1 each 0 Respiratory Therapy Supplies [...] She is in a class II of [place] [employer] functi onal class. There is [...] and ventricular function don e at the [facility]. LVEF 78%. C. Holter Monitor 08/16/13 [...] months. Electronically signed by: Jared Mcdonough MD [facility] 03/17/2014 Portions of this chart may have been created with [employer] voice recognition software. Occasi onal wrong-word [...] [place] | | | | | | [address] | | | | | | | | +--------+---------+ + + + | 11/24/ | Office | Cardiology | [place], | | | 2020 | Visit | | SINDHU Erickson [address] | | | | | | [place], | | | | | | [place] [address] | | | | | | [phone] | | | | | | | | +--------+---------+ + + + documented as of this encounter Visit Diagnoses + + | Diagnosis | + + | Other chest pain - Primary | + + documented in this encounter
--- OUTSIDE RECORDS SUMMARY | ~2019-02-28 | XMS | Encounter Summary ---
Demographics + + + | Address | [address] | | | [place] [address] | + + + | Home Phone [...] + + | 08/30/ | Emergency | [facility] | [place], | Tachycardia (Primary | | 2018 | | MED CTR EMERGENCY | Ozzy Kim MD [address] | Dx); Hypokalemia | | | | CENTER [address] | [address] [place] | | | | | [place] | [place] [address] | | | | | [address] | [phone] | | | | | [phone] | | | +--------+ + + + [...] [place] | | | | | | [address] | | | | | | | | +--------+---------+ + + + | 11/24/ | Office | Cardiology | [place], | | | 2020 | Visit | | SINDHU Erickson [address] | | | | | | [place], | | | | | | [place] [address] | | | | | | [phone] | | | | | | | [...] W?MRN: | | | | | | [id number] | | | [id number] | | | his | | | [...] | | | icalte | | | [employer] | | | | +---+--------+ documented in this encounter Results Holter monitor - 48 hour (09/04/2017 10:18 AM PDT) + + + | Narrative | Performed At | + + + | Jared Mcdonough MD 09/04/2017 10:47 PATIENT NAME: | JUNE ALFORD | | Rosario Malik : 1965: AGE: 52 y.o. | | | PRIMARY CARE: Yong | | | DO CAMILLE Cherry SPECIALTY MANUFACTURING SUPERVISOR: Jared Mcdonough MD | | | 48-HOUR [...] | | Signed by: Jared Mcdonough MD [facility] 09/04/2017, 10:18 | | + + [...] + | [facility] | [address] | [place] | [phone] | | [facility] | | [address] | | | - LABORATORY | | [...] | | | | | | [employer] | | | | | [...] + | [facility] | [address] | [place] | [phone] | | [facility] | | [address] | | | - LABORATORY | | [...] | | MEDICAL | | | | mL/min/1.95x9Ozln than | | CENTER - | | [...] [address] | [place] | [phone] | | [facility] | | [address] | | | - LABORATORY | | [...] | | Basophils | | K/uL | [facility] | | | | | | MEDICAL [...] [address] | [place] | [phone] | | [facility] | | [address] | | | - LABORATORY | | [...] | Top Tube | | | [facility] | | | | | | MEDICAL [...] [address] | [place] | [phone] | | [facility] | | [address] | | | - LABORATORY | | [...] [address] | [place] | [phone] | | [facility] | | [address] | | | - LABORATORY | | [...] ST. | [address] | [place], [place] | [phone] | | [facility] | | [address] | | | - LABORATORY | | [...] [address] | [place] | [phone] | | [facility] | | [address] | | | - LABORATORY | | [...] + | [facility] | [address] | [place] | [phone] | | [facility] | | [address] | | | - LABORATORY | | [...] + | [facility] | [address] | [place] | [phone] | | [facility] | | [address] | | | - LABORATORY | | [...] | | | | | RAFA PAUL ([id number]) on | | | | | | [...]
--- OUTSIDE RECORDS SUMMARY | ~2019-02-28 | XMS | Encounter Summary ---
Demographics + + + | Address | [address] | | | [place] [address] | + + + | Home Phone [...] Providers + +------+ + | Care Carpet Sewer Name | Role | Phone | [...] + + | 01/24/ | Telephone | [facility] | Jared Mcdonough, | Other (prescription | | 2013 | | CARDIOLOGY [address] | MD [address] [place] | clarification) | | | | [place], | [place], | | | | | [place] [address] | [place] [address] | | | | | [phone] | [phone] | | | | | | | [...] [place] | | | | | | [address] | | | | | | | | +--------+---------+ + + + | 11/24/ | Office | Cardiology | [place], | | | 2020 | Visit | | SINDHU Erickson [address] | | | | | | [place], | | | | | | [place] [address] | | | | | | [phone] | | | | | | | | +--------+---------+ + + + documented as of this encounter Visit Diagnoses Not on filedocumented in this encounter"
--- OUTSIDE RECORDS SUMMARY | ~2019-02-28 | XMS | Encounter Summary ---
Demographics + + + | Address | [address] | | | [place] [address] | + + + | Home Phone [...] Team Providers + +------+ + | Care Study Manager Name | Role | Phone | [...] + + | 08/03/ | Emergency | [facility] | Alverto Tyler, | Dehydration (Primary | | 2016 | | MED CTR EMERGENCY | [address] | Dx); Acute | | | | CENTER [address] | [place], [place] | hypokalemia; Urinary | | | | [place], [place] | [id number] | tract infection | | | | [address] | | without hematuria, | | | | [phone] | | site unspecified | +--------+ + [...] [place] | | | | | | [id number] | | | | | | | | +--------+---------+ + + + | 11/24/ | Office | Cardiology | [place], | | | 2019 | Visit | | SINDHU Erickson [address] | | | | | | [place], | | | | | | [place] [address] | | | | | | [phone] | | | | | | | [...] [address] | [place] | [phone] | | [facility] | | [address] | | | - LABORATORY | | [...] - 1.030 | [facility] | | | [place] | | | [facility] | | [...] [address] | [place] | [phone] | | [facility] | | [address] | | | - LABORATORY | | [...] not | 39 (L)Comment: | >=60 | [facility] | | | | GLOMERULAR FILTRATION | mL/min/1.73m2 | [facility] | | | GHANAIAN | RATE,ESTIMATED | | MEDICAL | | | | mL/min/1.84x8Ucud than | | CENTER - | | [...] + | [facility] | [address] | [place] | [phone] | | [facility] | | [address] | | | - LABORATORY | | [...] [address] | [place] | [phone] | | [facility] | | [address] | | | - LABORATORY | | [...] | | | | | | [employer] | | | | | [...] [address] | [place] | [phone] | | [facility] | | [address] | | | - LABORATORY | | [...] | | | | RAFA WELLS MD ([id number]) | | | | | | on [...]
--- OUTSIDE RECORDS SUMMARY | ~2019-02-28 | XMS | Encounter Summary ---
Demographics + + + | Address | [address] | | | [place] [address] | + + + | Home Phone [...] Team Providers + +------+ + | Care Washcoat Wiper Name | Role | Phone | + [...] [place] | treatments) | | | | [address] | [place] [address] | | | | | [phone] | [phone] | | | | | | | [...] [place] | | | | | | [id number] | | | | | | | | +--------+---------+ + + + | 11/24/ | Office | Cardiology | [place], | | | 2019 | Visit | | SINDHU Erickson [address] | | | | | | [place] | | | | | | [place] [address] | | | | | | [phone] | | | | | | | | +--------+---------+ + + + documented as of this encounter Visit Diagnoses Not on filedocumented in this encounter"
--- OUTSIDE RECORDS SUMMARY | ~2019-02-28 | XMS | Encounter Summary ---
Demographics + + + | Address | [address] | | | [place] [address] | + + + | Home Phone [...] Providers + +------+ + | Care Roll Icer Name | Role | Phone | + [...] [place], | | | | | | [place] [address] | | | | | | [phone] | | | +--------+ + + + [...] Speech Pathologist - 05/30/2016 1:32 [facility] [address] [place] [address] Cancellation/No Show Date: 05/30/2016 Patient Information Patient Name: Rosario Malik Date of : 1965 Age: 51 y.o. Reason for missed visit: Cancellation- NO manager telemetry Phone call placed: yes - pt called [...] [place] | | | | | | [id number] | | | | | | | | +--------+---------+ + + + | 11/24/ | Office | Cardiology | [place] | | | 2019 | Visit | | SINDHU Erickson [address] | | | | | | [place] | | | | | | [place] [address] | | | | | | [phone] | | | | | | | | +--------+---------+ + + + documented as of this encounter Visit Diagnoses Not on filedocumented in this encounter"
--- OUTSIDE RECORDS SUMMARY | ~2019-02-28 | XMS | Encounter Summary ---
Demographics + + + | Address | [address] | | | [place] [address] | + + + | Home Phone [...] Providers + +------+ + | Care Industrial Automation Engineer Name | Role | Phone | [...] 2017 | | CARDIOLOGY [address] | [facility] Erickson [address] | | | | | [place], | [place], | | | | | [place] [address] | [place] [address] | | | | | [phone] | [phone] | | | | | | | [...] | | | | | | [place] [address] | | | | | | [phone] | | | | | | | | +--------+---------+ + + + documented as of this encounter Visit Diagnoses Not on filedocumented in this encounter"
--- OUTSIDE RECORDS SUMMARY | ~2019-02-28 | XMS | Encounter Summary ---
Demographics + + + | Address | [address] | | | [place] [address] | + + + | Home Phone [...] Providers + +------+ + | Care Building Repair Maintenance Supervisor Name | Role | Phone [...] [address] | | | | | [place], | [place] | | | | | [place] [address] | [address] | | | | | [phone] | | | +--------+--------+ + + + [...] [place] | | | | | | [address] | | | | | | | | +--------+---------+ + + + | 11/24/ | Office | Cardiology | [place], | | | 2019 | Visit | | SINDHU Erickson [address] | | | | | | [place] | | | | | | [place] [address] | | | | | | [phone] | | | | | | | | +--------+---------+ + + + documented as of this encounter Visit Diagnoses Not on filedocumented in this encounter"
--- OUTSIDE RECORDS SUMMARY | ~2019-02-28 | XMS | Encounter Summary ---
Demographics + + + | Address | [address] | | | [place] [address] | + + + | Home Phone [...] +------+ + | Care Insurance Follow Up Specialist Name | Role | Phone | [...] + + | 11/06/ | Clinical | [facility] | Andriy Weber | Interstitial | | 2016 | Support | [address] | [address] | cystitis (Primary | | | | [place] | [place] | Dx) | | | | [address] | [place] [address] | | | | | [phone] | | | | | | | [...] Action Dose Route Administered By 11/07/2015 Given 87590 Units Subcutaneous Nancy Dalal CMA lidocaine 2% [...] [place] | | | | | | [address] | | | | | | | | +--------+---------+ + + + | 11/24/ | Office | Cardiology | [place], | | | 2019 | Visit | | SINDHU Erickson [address] | | | | | | [place], | | | | | | [place] [address] | | | | | | [phone] | | | | | | | [...] 1.001 - 1.030 | | | | [place], | | | | | | [facility], [...]
--- OUTSIDE RECORDS SUMMARY | ~2019-02-28 | XMS | Encounter Summary ---
Demographics + + + | Address | [address] | | | [place] [address] | + + + | Home Phone [...] Team Providers + +------+ + | Care Bead Preparer Name | Role | Phone | + [...] NEPHROLOGY [address] | MD [address] | Dx) | | | | [address] | [address] [place] | | | | | [place], [place] | [place] [address] | | | | | [address] | [phone] | | | | | [phone] | | | +--------+ + + + [...] possible bacterial bronchitis till pt sees her business support specialist. Pt was agreeable with plan. documented in [...] [place] | | | | | | [address] | | | | | | | | +--------+---------+ + + + | 11/24/ | Office | Cardiology | [place], | | | 2019 | Visit | | SINDHU Erickson [address] | | | | | | [place], | | | | | | [place] [address] | | | | | | [phone] | | | | | | | | +--------+---------+ + + + documented as of this encounter Visit Diagnoses + + | Diagnosis | + + | Bronchitis - Primary Bronchitis, not specified as acute or chronic | + + documented in this encounter"
--- OUTSIDE RECORDS SUMMARY | ~2019-02-28 | XMS | Encounter Summary ---
Demographics + + + | Address | [address] | | | [place] [address] | + + + | Home Phone [...] Team Providers + +------+ + | Care Soc Analyst Name | Role | Phone | + +------+ + PCP | Unavailable | + +------+ + Encounter Details +--------+ + + + + | Date | Type | Department | Care Team | Description | +--------+ + + + + | 12/01/ | [facility] | [facility] | | | | 2008 - | Encounter | MED CTR OP REHAB | | | | | | [address] [place] | | | | 12/24/ | | [place] [address] | | | | 2008 | | [phone] | | | +--------+ + + + [...] [place] | | | | | | [address] | | | | | | | | +--------+---------+ + + + | 11/24/ | Office | Cardiology | [place], | | | 2020 | Visit | | SINDHU Erickson [address] | | | | | | [place], | | | | | | [place] [address] | | | | | | [phone] | | | | | | | | +--------+---------+ + + + documented as of this encounter Visit Diagnoses Not on filedocumented in this encounter"
--- OUTSIDE RECORDS SUMMARY | ~2019-02-28 | XMS | Encounter Summary ---
Demographics + + + | Address | [address] | | | [place] [address] | + + + | Home Phone [...] Team Providers + +------+ + | Care Rim Turning Machine Operator Name | Role | [...] + + | 05/15/ | Office | [facility] | Offenstein, | GARRY (obstructive | | 2012 | Visit | PULMONARY [address] | Loreta Alonso MD | sleep apnea) | | | | [place], | | (Primary Dx); | | | | [place] [address] | | Central sleep apnea; | | | | [phone] | | Insomnia; COPD | | | [...] will send a corrected CPAP order to [facility]. 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 Clarification for order from [...] made to ensure accuracy; however, inadvertent computerized stained glass artist errors may be pre sent. documented in [...] [place] | | | | | | [address] | | | | | | | | +--------+---------+ + + + | 11/24/ | Office | Cardiology | [place], | | | 2019 | Visit | | SINDHU Erickson [address] | | | | | | [place] | | | | | | [place] [address] | | | | | | [phone] | | | | | | | [...]
--- OUTSIDE RECORDS SUMMARY | ~2019-02-28 | XMS | Encounter Summary ---
Demographics + + + | Address | [address] | | | [place] [address] | + + + | Home Phone [...] Team Providers + +------+ + | Care Fish And Game Club Manager Name | Role | Phone | [...] | Concussion | Aaron Kim MD | Estimation Manager [address] | | | Required | | with brief | [address] | [place] | | | | | loss of | [address] | [place], [place] | | | | | consciousnes | [place], | [address] | | | | | s Word | [place] [address] | Phone: | | | | | finding | Phone: | [phone] | | | | | difficulty | [phone] | Fax: | | | | | [phone] | Fax: | [phone] | | | | | (ICD-10-CM) | [phone] | | | | | | - [...] + + | 05/16/ | Hospital | [facility] | Aaron Rodriguez, | Concussion with | | 2017 | Encounter | MED CTR SPEECH | MD [address] | brief (less than one | | | | THERAPY [address] | [place] | hour) loss of | | | | [place], | [address] | consciousness | | | | [place] [address] | | (Primary Dx); | | | | [phone] | Kathi Soto, | Impaired memory; | [...] | 0 | 10/13/19 | | | Larhyxgeis-WBMJ-Ioxs | mouth as needed. | | | 16 | 7 | | -Cod [id number] MG | | | | | | [...] Speech Pathologist - 05/16/2016 10:30 AM PDT [facility] SPEECH THERAPY [address] [facility] [address] Speech Therapy Initial Assessment Date: 05/16/2016 Patient Information Patient Name: Rosario Malik Date of : 1965 Age: 51 y.o. History No problems updated. Mechanism of injury: Trauma- Concussion with brief loss of consciousness on 03/15/16. Previous level of function and limitations: Problems with memory prior to concussion [facility] [place] in December of 2015, forgetting names, forgetting appointments,difficulty recalling words , and during conversation difficulty staying on track. 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 [employer] Social History Main Topics Smoking status: [...] [facility]) 10/28/2012 Overview: Managed by [facility] along with hypothyroidism Osteoarthritis Tachycardia Asthma Emphysema Migraine Sleep apnea uses BiPAP Oxygen dependent uses 2.5 liters most of the time Past Surgical History Procedure Laterality Date Hammer toe surgery right sided Hiatal hernia repair Hiatal hernia Kirk and bso Ovarian cysts, not cancer Colonoscopy 03/2010 Colonoscopy 1995 [facility] Knee surgery right Wrist surgery right Hysterectomy Other surgical history 02/28/2014 [facility] with Radial approach; Laterality: Left; Surgeon: Jared Mcdonough MD; Location: [facility] Tonsillectomy Age 6 Turbt N/A 11/22/2015 Procedure: Cystoscopy, Hydrodistention & Bladder Biopsy; Surgeon: Juan Melendez; Location: [facility] MAIN OR Hernia repair 11/29/2015 [facility] Family History Problem Relation Age of [...] Rehab Precautions Office Visit from 05/01/2016 in [facility] THERAPY PT OP Rehab [...] the mean for immediate and delayed memory. HOSPITAL HOUSEKEEPER G-Codes Functional Assessment Tool Used: NOMS Score: [...] From: 05/16/2016 Certification To: 08/16/2016 Treatment Plan/Interventions 87550 - Cognitive [id number] - Cognitive [id number] - Speech/Hearing Treatment Patient and/or family has [...] [place] | | | | | | [address] | | | | | | | | +--------+---------+ + + + | 11/24/ | Office | Cardiology | [place], | | | 2019 | Visit | | SINDHU Erickson [address] | | | | | | [place], | | | | | | [place] [address] | | | | | | [phone] | | | | | | | [...]
--- OUTSIDE RECORDS SUMMARY | ~2019-02-28 | XMS | Encounter Summary ---
Demographics + + + | Address | [address] | | | [place] [address] | + + + | Home Phone [...] Providers + +------+ + | Care Die Trouble Shooter Name | Role | Phone | + [...] + + | 07/24/ | Telephone | [facility] | Andriy Weber | Hematuria; Bladder | | 2017 | | [address] | [address] | Pain | | | | [place], [place] | THOM [facility] | | | | | [address] | [place] [address] | | | | | [phone] | [phone] | | | | | | | [...] | | | | | | [place] [address] | | | | | | [phone] | | | | | | | | +--------+---------+ + + + documented as of this encounter Visit Diagnoses Not on filedocumented in this encounter"
--- OUTSIDE RECORDS SUMMARY | ~2019-02-28 | XMS | Encounter Summary ---
Demographics + + + | Address | [address] | | | [place] [address] | + + + | Home Phone [...] + +------+ + | Care Real Estate Paralegal Name | Role | Phone | + [...] + + | 08/17/ | Office | [facility] | Jared Mcdonough, | Hospital discharge | | 2015 | Visit | CARDIOLOGY [address] | [address] [facility] | follow-up (Primary | | | | [place], | [place], | Dx); Tachycardia; | | | | [place] [address] | [place] [address] | Syncope, unspecified | | | | [phone] | [phone] | syncope type | | | | [...] time, patient was seen and admitted to [facility] on because she passed out. Workups [...] be [facility], patient flat out refused to [...] day. 15 tablet 3 Respiratory Therapy Supplies [facility] Please provide patient with necessary CPAP supplies ( she did not specify, okay to send order as appropriate) Diagnosis Code(s)327.23 . Length of Need 99 months. Please send order to [facility]. 1 each 0 [facility]AP back to 11-14 cm [...] and ventricular function don e at the [facility]. LVEF 78%. C. Holter Monitor [...] E. Patient was seen and admitted to [facility] on 07/10/13 because she pa ssed [...] She is in a class I of [place] [employer] functional class. There is no [...] months. Electronically signed by: Jared Mcdonough MD [facility] 08/17/2014 Portions of this chart may have been created with [employer] voice recognition software. Occasi onal wrong-word [...] [place] | | | | | | [address] | | | | | | | | +--------+---------+ + + + | 11/24/ | Office | Cardiology | [place], | | | 2019 | Visit | | SINDHU Erickson [address] | | | | | | [place], | | | | | | [place] [address] | | | | | | [phone] | | | | | | | [...]
--- OUTSIDE RECORDS SUMMARY | ~2019-02-28 | XMS | Encounter Summary ---
Demographics + + + | Address | [address] | | | [place] [address] | + + + | Home Phone [...] Team Providers + +------+ + | Care Cafe Manager Name | Role | Phone | [...] | | central | [address] | [place] | | | | | sleep apnea | [address] | [place], | | | | | [place] | [place], | [place] [address] | | | | | (obstructive | [place] [address] | Phone: | | | | | sleep | Phone: | [phone] | | | | | apnea) | [phone] | Fax: | | | | | Procedures | Fax: | [phone] | | | | | [place] POLYSOM | [phone] | | | | | | 6/>YRS [...] + + | 02/08/ | Hospital | [facility] | Kevin Sandoval, | | | 2013 | Encounter | MED CTR SLEEP | [address] | | | | | [place] [address] | [place] | | | | | [place] | [address] | | | | | [address] | | | | | | [phone] | | | +--------+ + + + [...] | | | | | [facility]. | | | | | | | [...] [place] | | | | | | [address] | | | | | | | | +--------+---------+ + + + | 11/24/ | Office | Cardiology | [place], | | | 2019 | Visit | | SINDHU Erickson [address] | | | | | | [place], | | | | | | [place] [address] | | | | | | [phone] | | | | | | | [...]
--- OUTSIDE RECORDS SUMMARY | ~2019-02-28 | XMS | Encounter Summary ---
Demographics + + + | Address | [address] | | | [place] [address] | + + + | Home Phone [...] Team Providers + +------+ + | Care Deposition Operator Name | Role | Phone | [...] + + | 07/19/ | Telephone | [facility] [place] | Kevin Sandoval, | Other (medication | | 2014 | | PULMONARY [address] | MD [address] | request) | | | | [place], | [place] | | | | | [place] [address] | [address] | | | | | [phone] | | | +--------+ + + + [...] [place] | | | | | | [address] | | | | | | | | +--------+---------+ + + + | 11/24/ | Office | Cardiology | Flores, | | | 2019 | Visit | | SINDHU Erickson [address] | | | | | | [place], | | | | | | [place] [address] | | | | | | [phone] | | | | | | | | +--------+---------+ + + + documented as of this encounter Visit Diagnoses Not on filedocumented in this encounter"
--- OUTSIDE RECORDS SUMMARY | ~2019-02-28 | XMS | Encounter Summary ---
Demographics + + + | Address | [address] | | | [place] [address] | + + + | Home Phone [...] Team Providers + +------+ + | Care Wrap Knitting Machine Operator Name | Role | Phone [...] Office | [facility] | Andriy Weber | Pyuria (Primary Dx); | | 2017 | Visit | [address] | MD [address] | Interstitial | | | | [place] | [address] | cystitis | | | | [address] | [place] [address] | | | | | [phone] | [phone] | | | | | | | [...] medical history of Adrenal insufficiency ([facility]); Anxiety; Asthma; 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 Length of Need 99 months. Please send order to [facility]. 1 each 0 Respiratory Therapy Supplies [facility] Change CPAP back to 11-14 cm H2O. [...] of instillation, we can use a 20 Polish catheter to determine urethral patency. I suggested [...] t is made to edit the content, mold presser errors may occur. Occasional wrong- word or [...] | | | | [place], [place] | | | | | | [address] | | | | | | | | +--------+---------+ + + + | 11/24/ | Office | Cardiology | [place], | | | 2019 | Visit | | SINDHU Erickson [address] | | | | | | [place], | | | | | | [place] [address] | | | | | | [phone] | | | | | | | [...] 1.001 - 1.030 | | | | [place], | | | | | | [facility], [...] [address] | [place] | [phone] | | [facility] | | [address] | | | - LABORATORY | | [...]
--- OUTSIDE RECORDS SUMMARY | ~2019-02-28 | XMS | Encounter Summary ---
Demographics + + + | Address | [address] | | | [place] [address] | + + + | Home Phone [...] Providers + +------+ + | Care Sports Coordinator Name | Role | Phone | + +------+ + | Juan Cherry DO | PCP | | + +------+ + Encounter Details +--------+ + + + + | Date | Type | Department | Care Team | Description | +--------+ + + + + | 02/12/ | Hospital | [facility] | Nestor Martinez, | | | 2012 | Encounter | MED CTR EMERGENCY | MD [address] | | | | | CENTER [address] | [place], [place] | | | | | [place], [place] | [address] | | | | | [address] | | | | | | [phone] | | | +--------+ + + + [...] | | | | | [facility]. | | | | | | | [...] [place] | | | | | | [address] | | | | | | | | +--------+---------+ + + + | 11/24/ | Office | Cardiology | [place], | | | 2019 | Visit | | SINDHU Erickson [address] | | | | | | [place], | | | | | | [place] [address] | | | | | | [phone] | | | | | | | | +--------+---------+ + + + documented as of this encounter Visit Diagnoses Not on filedocumented in this encounter"
--- OUTSIDE RECORDS SUMMARY | ~2019-02-28 | XMS | Encounter Summary ---
Demographics + + + | Address | [address] | | | [place] [address] | + + + | Home Phone [...] Team Providers + +------+ + | Care Protection Consultant Name | Role | Phone | + +------+ + | Juan Cherry DO | PCP | | + +------+ + Encounter Details +--------+ + + + + | Date | Type | Department | Care Team | Description | +--------+ + + + + | 04/12/ | Hospital | [facility] | Offenstein, | COPD exacerbation | | 2013 | Encounter | MED CTR GENERIC OP | Loreta Alonso MD | ([facility]) | | | | CONV DEPT [address] | | | | | | [place], | | | | | | [place] [address] | | | | | | [phone] | | | +--------+ + + + [...] days. | | | | | | ([facility] [...] [place] | | | | | | [id number] | | | | | | | | +--------+---------+ + + + | 11/24/ | Office | Cardiology | [place] | | | 2019 | Visit | | SINDHU Erickson [address] | | | | | | [place], | | | | | | [place] [address] | | | | | | [phone] | | | | | | | [...] + + + + + | [facility] | [address] | [place] | [phone] | | [facility] | | [address] | | | - LABORATORY | | | | + + + + + | [facility] | [address] | [place], [place] | | | [facility] | | [address] | | | - LABORATORY | | [...] + | [facility] | [address] | [place] | [phone] | | [facility] | | [address] | | | - LABORATORY | | | | + + + + + | [facility] | [address] | [place], [place] | | | [facility] | | [address] | | | - LABORATORY | | | | + + + + + documented in this encounter Visit Diagnoses + + | Diagnosis | + + | COPD exacerbation (HCC) Obstructive chronic bronchitis with exacerbation | + + documented in this encounter"
--- OUTSIDE RECORDS SUMMARY | ~2019-02-28 | XMS | Encounter Summary ---
Demographics + + + | Address | [address] | | | [place] [address] | + + + | Home Phone [...] Providers + +------+ + | Care Clinical Technician Name | Role | Phone | [...] [address] | | | | | [place], | [place] | | | | | [place] [address] | [address] | | | | | [phone] | | | +--------+--------+ + + + [...] [place] | | | | | | [id number] | | | | | | | | +--------+---------+ + + + | 11/24/ | Office | Cardiology | [place], | | | 2019 | Visit | | SINDHU Erickson [address] | | | | | | [place] | | | | | | [place] [address] | | | | | | [phone] | | | | | | | | +--------+---------+ + + + documented as of this encounter Visit Diagnoses Not on filedocumented in this encounter"
--- OUTSIDE RECORDS SUMMARY | ~2019-02-28 | XMS | Encounter Summary ---
Demographics + + + | Address | [address] | | | [place] [address] | + + + | Home Phone [...] Providers + +------+ + | Care Track Repairer Helper Name | Role | Phone | + +------+ + | Juan Cherry DO | PCP | | + +------+ + Encounter Details +--------+ + + + + | Date | Type | Department | Care Team | Description | +--------+ + + + + | 08/20/ | Abstract | [facility] | Jared Mcdonough, | | | 2013 | | CARDIOLOGY [address] | MD [address] [place] | | | | | [place], | [place], | | | | | [place] [address] | [place] [address] | | | | | [phone] | [phone] | | | | | | | [...] [place] | | | | | | [address] | | | | | | | | +--------+---------+ + + + | 11/24/ | Office | Cardiology | [place], | | | 2019 | Visit | | SINDHU Erickson [address] | | | | | | [place], | | | | | | [place] [address] | | | | | | [phone] | | | | | | | [...] + | [facility] | [address] | [place], [place] | [phone] | | [facility] | | [address] | | | - LABORATORY | | | | + + + + + | [facility] | [address] | [place], [place] | | | [facility] | | [address] | | | - LABORATORY | | [...] St | [place] | | | [facility] | | [address] | | | - LABORATORY | | [...] | | | LAB | | | [place], | | | | | | External [...]
--- OUTSIDE RECORDS SUMMARY | ~2019-02-28 | XMS | Encounter Summary ---
Demographics + + + | Address | [address] | | | [place] [address] | + + + | Home Phone [...] Providers + +------+ + | Care Cover Mat Machine Operator Name | Role | Phone | + +------+ + PCP | Unavailable | + +------+ + Encounter Details +--------+ + + + + | Date | Type | Department | Care Team | Description | +--------+ + + + + | 01/12/ | [facility] | [facility] | | | | 2008 | Encounter | MED CTR LABORATORY | | | | | | [address] [place] | | | | | | [place] | | | | | | [address] | | | | | | [phone] | | | +--------+ + + + [...] [place] | | | | | | [address] | | | | | | | | +--------+---------+ + + + | 11/24/ | Office | Cardiology | [place], | | | 2020 | Visit | | SINDHU Erickson [address] | | | | | | [place], | | | | | | [place] [address] | | | | | | [phone] | | | | | | | | +--------+---------+ + + + documented as of this encounter Visit Diagnoses Not on filedocumented in this encounter"
--- OUTSIDE RECORDS SUMMARY | ~2019-02-28 | XMS | Encounter Summary ---
Demographics + + + | Address | [address] | | | [place] [address] | + + + | Home Phone [...] Providers + +------+ + | Care Python Engineer Name | Role | Phone | + +------+ + | Juan Cherry DO | PCP | | + +------+ + Encounter Details +--------+ + + + + | Date | Type | Department | Care Team | Description | +--------+ + + + + | 04/05/ | Hospital | [facility] | Yesenia Landin | | | 2013 | Encounter | MED CTR EMERGENCY | DO Cipriano Christin TOMAS | | | | | CENTER [address] | [place], [place] | | | | | [place], [place] | [address] | | | | | [address] | | | | | | [phone] | Ozzy Aponte | | | | | | Ozzie Kebede MD | | | | | | [address] | | | | | | [place], [place] | | | | | | [address] | | | | | | | [...] [place] | | | | | | [address] | | | | | | | | +--------+---------+ + + + | 11/24/ | Office | Cardiology | [place] | | | 2019 | Visit | | SINDHU Erickson [address] | | | | | | [place], | | | | | | [place] [address] | | | | | | [phone] | | | | | | | [...] + + + | [facility] | [place] | | Department [address] [facility] | [facility] | | [ rep [address]] [ rep [facility] | | st zip] Signed | - IMAGING | | | | | Patient Name: JADYN SCHMITZ | | | Physician: MARY : 1965 Age: 48 Sex: F Unit | | | #: [id number] Exam Date: 04/05/13 Location: | | | ER Report #: [id number] Page: | | | %(RAD)RES..mtdd.print.filter("pg") of %(RAD) | | | RES..mtdd.print.filter("tpg") | | | | | | Accession Number: [id number] | | | TWO VIEWS OF THE [...] Transcribed Date/Time: 04/06/2013 | | | 08:52 Dental Hygiene Administrative Assistant: <<Signature | | | on File>> | | | Aditya Alonso | | | MD Claudio04/06/13 2312 <Electronically signed by Aditya Snyder MD> | | | Aditya Snyder MD 04/06/1345 Dental Hygiene Administrative Assistant: | | | Webmedx Rotwxmfyrysau65/11/14 0852 | | + + + + + + + + | Performing | Address | City/State[facility] | Phone Number | | Organization | | | | + + + + + | [facility] | [address] | [place] | [phone] | | [facility] | | [address] | | | - IMAGING | | | | + + + + + XR Chest PA and Lateral (04/06/2013 8:14 AM PST) + + | Specimen | + + | | + + + + + | Narrative | Performed At | + + + | [facility] | [place] | | Department [address] [facility] | [facility] | | [ rep ct [address]] [ rep [facility] | | [facility]] Signed | - IMAGING | | | | | Patient Name: JADYN SCHMITZ W | | | Physician: MARY : 1965 Age: 48 Sex: F Unit | | | #: [id number] Exam Date: 04/05/13 Location: | | | ER Report #: [id number] Page: | | | %(RAD)RES..mtdd.print.filter("pg") of %(RAD) | | | RES..mtdd.print.filter("tpg") | | | | | | Accession Number: [id number] | | | PA AND LATERAL CHEST: [...] Transcribed Date/Time: 04/06/2013 08:17 | | | Dental Hygiene Administrative Assistant: <<Signature on File>> | | | | | | Aditya Snyder MD04/06/132 <Electronically signed by Aditya Alonso | | | Claudio PAUL> Aditya Snyder MD 04/06/13813 | | | Dental Hygiene Administrative Assistant: Neal Cdpnjcnnzjdmh80/11/14816 | | | | | + + + + + + + + | Performing | Address | City/State/Zipcode | Phone Number | | Organization | | | | + + + + + | [facility] | [address] | [place] | [phone] | | [facility] | | [address] | | | - IMAGING | | | | + + + + + documented in this encounter Visit Diagnoses Not on filedocumented in this encounter
--- OUTSIDE RECORDS SUMMARY | ~2019-02-28 | XMS | Encounter Summary ---
Demographics + + + | Address | [address] | | | [place] [address] | + + + | Home Phone [...] Providers + +------+ + | Care Marketing Assistant Manager Name | Role | Phone | [...] [address] | | | | | [place], | [place] | | | | | [place] [address] | [address] | | | | | [phone] | | | +--------+--------+ + + + [...] [place] | | | | | | [id number] | | | | | | | | +--------+---------+ + + + | 11/24/ | Office | Cardiology | [place], | | | 2019 | Visit | | SINDHU Erickson [address] | | | | | | [place] | | | | | | [place] [address] | | | | | | [phone] | | | | | | | | +--------+---------+ + + + documented as of this encounter Visit Diagnoses Not on filedocumented in this encounter"
--- OUTSIDE RECORDS SUMMARY | ~2019-02-28 | XMS | Encounter Summary ---
Demographics + + + | Address | [address] | | | [place] [address] | + + + | Home Phone [...] Providers + +------+ + | Care Doctor Chiropractic Name | Role | Phone | + [...] [address] | breath) | | | | [place], | [place] | | | | | [place] [address] | [address] | | | | | [phone] | | | +--------+ + + + [...] [place] | | | | | | [address] | | | | | | | | +--------+---------+ + + + | 11/24/ | Office | Cardiology | [place], | | | 2020 | Visit | | SINDHU Erickson [address] | | | | | | [place], | | | | | | [place] [address] | | | | | | [phone] | | | | | | | | +--------+---------+ + + + documented as of this encounter Visit Diagnoses Not on filedocumented in this encounter"
--- OUTSIDE RECORDS SUMMARY | ~2019-02-28 | XMS | Encounter Summary ---
Demographics + + + | Address | [address] | | | [place] [address] | + + + | Home Phone [...] Providers + +------+ + | Care Dry Cure Worker Name | Role | Phone | [...] + + | 04/18/ | Office | [facility] | Kevin Sandoval, | COPD (chronic | | 2015 | Visit | PULMONARY [address] | MD [address] | obstructive | | | | [place], | [place], [place] | pulmonary disease) | | | | [place] [address] | [address] | ([facility]) (Primary Dx); | | | | [phone] | | [place] (obstructive | | | [...] Kevin Sandoval MD - 04/18/2014 9:15 AM [facility] Patient Education Prednisone Gastro-resistant tablet Prednisone [...] avoid any side effects. Talk to your communications technician regarding the use of this medicine in [...] ta lk to your doctor or health career technical supervisor. You may need to miss a [...] this medicine? Visit your doctor or health career technical supervisor for regular checks on your progress. [...] have surgery, tell your doctor or health career technical supervisor that you hav e taken this medicine within the last twelve months. Ask your doctor or health career technical supervisor about your diet. You may need to lower the amou nt of salt you eat. This medicine may affect blood sugar levels. If you have diabetes, check with your doctor o r health career technical supervisor before you change your diet or the dose of your diabetic medicine . What side effects may I notice from receiving this medicine? Side effects that you should report to your doctor or health career technical supervisor as soon as p ossible: allergic [...] attention (report to your doctor or health career technical supervisor if they continue or are bothersome): confusion, excitement, restlessness headache nausea, vomiting skin problems, acne, thin and shiny skin trouble sleeping weight gain This list may not describe all possible side effects. Call your doctor for medical advice a bout side effects. You may report side effects to FDA at 0-435-HLD-8014. Where should I keep my medicine? Keep [...] rom the original. Pulmonary Follow Up 04/18/2014 [facility] Rosario Malik is a 49 [...] for a COPD exacerbation since our last [facility] appointment. They are currently on a daily [...] ([facility]) 10/28/2012 Overview: Managed by [facility] along with hypothyroidism Osteoarthritis Tachycardia Asthma Emphysema [...] 30 tablet, Rfl: 3, Respiratory Therapy Supplies [facility], Please provide patient with necessary CPAP supplies (she did not specify, okay to send order as appropriate) Diagnosis Code(s)327.23 . Length of Nee d 99 months. Please send order to [facility]., Disp: 1 each, Rfl: 0, Respiratory Therapy Supplies [facility], Change CPAP back to 11-14 cm H2O. All necessary supplies . No oxygen bleed in. Diagnosis Code(s)327.23. Length of Need: Lifetime. Please send order t o [facility]. This is not [...] at a pressure of 9 cm H2O. [place] lent compliance noted. 3. Hypoxemia patient wears [...] [place] | | | | | | [address] | | | | | | | | +--------+---------+ + + + | 11/24/ | Office | Cardiology | [place], | | | 2019 | Visit | | SINDHU Erickson [address] | | | | | | [place], | | | | | | [place] [address] | | | | | | [phone] | | | | | | | [...]
--- OUTSIDE RECORDS SUMMARY | ~2019-02-28 | XMS | Encounter Summary ---
Demographics + + + | Address | [address] | | | [place] [address] | + + + | Home Phone [...] Providers + +------+ + | Care Electric Meter Installer Helper Name | Role | Phone | [...] + + | 07/24/ | Clinical | [facility] | Andriy Weber | Bladder pain | | 2018 | Support | [address] | MD [address] | (Primary Dx) | | | | [place], [place] | THOM [facility] | | | | | [address] | [place] [address] | | | | | [phone] | [phone] | | | | | | | [...] and Dr. Weber's order. Patient remained in [facility] office for 20 minutes prior to voiding. [...] [place] | | | | | | [address] | | | | | | | | +--------+---------+ + + + | 11/24/ | Office | Cardiology | [place], | | | 2019 | Visit | | Georgina, LINEN CONTROLLER [address] | | | | | | [place], | | | | | | [place] [address] | | | | | | [phone] | | | | | | | [...]
--- OUTSIDE RECORDS SUMMARY | ~2019-02-28 | XMS | Encounter Summary ---
Demographics + + + | Address | [address] | | | [place] [address] | + + + | Home Phone [...] Providers + +------+ + | Care Manager Neonatal Name | Role | Phone | + [...] + + | 11/03/ | Telephone | [facility] | Kevin Sandoval, | Shortness of Breath | | 2013 | | PULMONARY [address] | MD [address] | | | | | [place], | [place] | | | | | [place] [address] | [address] | | | | | [phone] | | | +--------+ + + + [...] | | | | | | [place] [address] | | | | | | [phone] | | | | | | | | +--------+---------+ + + + documented as of this encounter Visit Diagnoses Not on filedocumented in this encounter"
--- OUTSIDE RECORDS SUMMARY | ~2019-02-28 | XMS | Encounter Summary ---
Demographics + + + | Address | [address] | | | [place] [address] | + + + | Home Phone [...] Team Providers + +------+ + | Care Landscape Manager Name | Role | Phone | [...] [address] | | | | | [place], | [place] | | | | | [place] [address] | [address] | | | | | [phone] | | | +--------+--------+ + + + [...] [place] | | | | | | [address] | | | | | | | | +--------+---------+ + + + | 11/24/ | Office | Cardiology | [place], | | | 2019 | Visit | | SINDHU Erickson [address] | | | | | | [place] | | | | | | [place] [address] | | | | | | [phone] | | | | | | | | +--------+---------+ + + + documented as of this encounter Visit Diagnoses Not on filedocumented in this encounter"
--- OUTSIDE RECORDS SUMMARY | ~2019-02-28 | XMS | Encounter Summary ---
Demographics + + + | Address | [address] | | | [place] [address] | + + + | Home Phone [...] Team Providers + +------+ + | Care Attending Psychiatrist Name | Role | Phone | [...] + + | 05/30/ | Office | [facility] | Guru Henao | Acute pain of right | | 2018 | Visit | CARE [address] | MD A[place]da [address] | wrist (Primary Dx); | | | | [place] | [place] | Osteoarthritis of | | | | [address] | [address] | first | | | | [phone] | | carpometacarpal | | | | [...] thumb and fingers, unscrew a jar lid, nephrologist an object, or turn a door handle or a mccallum. You may find yourself dropping things. Weather may also make the thumb sage t. The joint may swell. With time the thumb may become stiff or deformed. Date Last Reviewed: 06/24/201619992166-1062 [employer]. [address] [place] [address]. All righ ts reserved. This information is not intended as a substitute for professional medical care. Always follow your healthcare professional's instructions. documented in this encounter Progress Notes Jayce Ya, Drivability Technician - 05/30/2017 8:15 AM PDTVerified name and [...] [place] | | | | | | [address] | | | | | | | | +--------+---------+ + + + | 11/24/ | Office | Cardiology | [place], | | | 2019 | Visit | | SINDHU Erickson [address] | | | | | | [place], | | | | | | [place] [address] | | | | | | [phone] | | | | | | | | +--------+---------+ + + + documented as of this encounter Visit Diagnoses + + | Diagnosis | + + | Acute pain of right wrist - Primary | + + | Osteoarthritis of first carpometacarpal (CMC) joint of one hand | + + documented in this encounter
--- OUTSIDE RECORDS SUMMARY | ~2019-02-28 | XMS | Encounter Summary ---
Demographics + + + | Address | [address] | | | [place] [address] | + + + | Home Phone [...] Providers + +------+ + | Care Assistant Technician Name | Role | Phone | [...] [address] | | | | | [place], [place] | THOM [facility] | | | | | [address] | [place] [address] | | | | | [phone] | [phone] | | | | | | | [...] [place] | | | | | | [address] | | | | | | | | +--------+---------+ + + + | 11/24/ | Office | Cardiology | Flores, | | | 2019 | Visit | | SINDHU Erickson [address] | | | | | | [place], | | | | | | [place] [address] | | | | | | [phone] | | | | | | | | +--------+---------+ + + + documented as of this encounter Visit Diagnoses Not on filedocumented in this encounter"
--- OUTSIDE RECORDS SUMMARY | ~2019-02-28 | XMS | Encounter Summary ---
Demographics + + + | Address | [address] | | | [place] [address] | + + + | Home Phone [...] Providers + +------+ + | Care Credit Administration Officer Name | Role | Phone | [...] | | central | [address] | [address] | | | | | sleep apnea | [address] | [place], | | | | | GARRY | [place], | [place] [address] | | | | | (obstructive | [place] [address] | Phone: | | | | | sleep | Phone: | [phone] | | | | | apnea) | [phone] | Fax: | | | | | Procedures | Fax: | [phone] | | | | | NE POLYSOM | [phone] | | | | | | 6/>YRS [...] + + | 12/30/ | Office | [facility] | Kevin Sandoval, | COPD (chronic | | 2013 | Visit | PULMONARY [address] | MD [address] | obstructive | | | | [place], | [place], [place] | pulmonary disease) | | | | [place] [address] | [address] | (HCC) (Primary Dx); | | | | [phone] | | Hypoxemia; Central | | | [...] nd it. Keep your chin up. 3. [place] 1 puff into the spacer by pressing [...] your mouth.) 3. Keep your chin up. [place] 1 puff by pressing down on the [...] store it in a dry p lace. [phone] [facility], [address] [place] [address], [place] [address]. All rights reserve d. This information is [...] apparently in the emergency department at the [facility] a week or so ago and [...] [facility]) 10/28/2012 Overview: Managed by [facility] [...] Please send order to [facility]., Disp: 1 each, Rfl: 0 Respiratory Therapy Supplies MISC, Change CPAP back to 11-14 cm H2O. All necessary supplies . No oxygen bleed in. Diagnosis Code(s)327.23. Length of Need: Lifetime. Please send order asiya [place] [facility]. This is not a new [...] [place] | | | | | | [id number] | | | | | | | | +--------+---------+ + + + | 11/24/ | Office | Cardiology | Flores, | | | 2019 | Visit | | SINDHU Erickson [address] | | | | | | [place], | | | | | | [place] [address] | | | | | | [phone] | | | | | | | [...]
--- OUTSIDE RECORDS SUMMARY | ~2019-02-28 | XMS | Encounter Summary ---
Demographics + + + | Address | [address] | | | [place] [address] | + + + | Home Phone [...] Providers + +------+ + | Care Physical Aerodynamicist Name | Role | Phone | + [...] + + | 10/04/ | Office | [facility] | Kevin Sandoval, | COPD (chronic | | 2013 | Visit | PULMONARY [address] | MD [address] | obstructive | | | | [place], | [place], [place] | pulmonary disease) | | | | [place] [address] | [address] | ([facility]) (Primary Dx); | | | | [phone] | | Hypoxemia | +--------+---------+ + + [...] not start to improve within 24 hours 4780-7508 Rafael Perez, [address] [place] [address], [place] [address]. All rights reserve d. This information is [...] evaluated in the emergency department of the [facility]. The second exacerbation occurred in early August and resulted in hospitalization at the [facility]. Treatment with prednisone and anti biotics occurred. Rosario was hospitalized for approximately 4 days. She was discharged o n supplemental oxygen and instructed to use it 24 hours a day. She also apparently had an i ncreased heart rate which was evaluated by fuel manager. The patient was treated with digox in. [...] [facility]) 10/28/2012 Overview: Managed by [facility] along with hypothyroidism Osteoarthritis Tachycardia Social History: [...] months. Please send order to [facility]., D isp: 1 each, Rfl: 0 [...] | | | | | [place], [place] | | | | | | [address] | | | | | | | | +--------+---------+ + + + | 11/24/ | Office | Cardiology | Flores, | | | 2019 | Visit | | SINDHU Erickson [address] | | | | | | [place], | | | | | | [place] [address] | | | | | | [phone] | | | | | | | | +--------+---------+ + + + documented as of this encounter Visit Diagnoses + + | Diagnosis | + + | COPD (chronic obstructive pulmonary disease) (HCC) - Primary Chronic airway | | obstruction, not elsewhere classified | + + | Hypoxemia | + + documented in this encounter
--- OUTSIDE RECORDS SUMMARY | ~2019-02-28 | XMS | Encounter Summary ---
Demographics + + + | Address | [address] | | | [place] [address] | + + + | Home Phone [...] Providers + +------+ + | Care Chief Commercial Officer Name | Role | [...] + + | 10/03/ | Office | [facility] | Andriy Weber | Cystitis (Primary | | 2016 | Visit | [address] | MD [address] | Dx) | | | | [place] | THOM [facility] | | | | | [address] | [place] [address] | | | | | [phone] | [phone] | | | | | | | [...] She has a way to go to [place] to have her hiatal hernia repaired, and is unable to stay t [place] to have a DMSO instillation of her bladder. She has tentatively agreed to have this do ne once she has been to [facility]. Past Medical History She has a [...] DIVISION. 1 each 0 Respiratory Therapy Supplies MIS Change CPAP back to 11-14 cm H2O. All necessary suppl ies. No oxygen bleed in. Diagnosis Code(s)327.23. Length of Need: Lifetime. Please send orde r to [facility]. This is not a [...] Wt 79.379 kg (175 lb) | B [place] 32.00 kg/m2 General: Awake, alert, in no [...] since s he had an appointment at [facility]. Rosario is instructed to resume her usual and customary care with her primary care provide r. This document was generated in part using voice recognition software. Although I have atte mpted to edit the content, I have not thoroughly proofread this note, and hairspring studder erro rs may occur. documented in th [...] [place] | | | | | | [id number] | | | | | | | | +--------+---------+ + + + | 11/24/ | Office | Cardiology | Flores, | | | 2019 | Visit | | SINDHU Erickson [address] | | | | | | [place] | | | | | | [place] [address] | | | | | | [phone] | | | | | | | [...] [address] | [place] | [phone] | | [facility] | | [address] | | | - LABORATORY | | [...] 1.001 - 1.030 | | | | [place], | | | | | | [facility], [...]
--- OUTSIDE RECORDS SUMMARY | ~2019-02-28 | XMS | Encounter Summary ---
Demographics + + + | Address | [address] | | | [place] [address] | + + + | Home Phone [...] Providers + +------+ + | Care Cloth Shrinking Machine Operator Helper Name | Role | [...] [address] | | | | | [place], | [place] | | | | | [place] [address] | [address] | | | | | [phone] | | | +--------+--------+ + + + [...] [place] | | | | | | [address] | | | | | | | | +--------+---------+ + + + | 11/24/ | Office | Cardiology | Flores, | | | 2019 | Visit | | SINDHU Erickson [address] | | | | | | [place] | | | | | | [place] [address] | | | | | | [phone] | | | | | | | | +--------+---------+ + + + documented as of this encounter Visit Diagnoses Not on filedocumented in this encounter"
--- OUTSIDE RECORDS SUMMARY | ~2019-02-28 | XMS | Encounter Summary ---
Demographics + + + | Address | [address] | | | [place] [address] | + + + | Home Phone [...] Providers + +------+ + | Care Mail Technician Name | Role | Phone | + +------+ + PCP | Unavailable | + +------+ + Encounter Details +--------+ + + + + | Date | Type | Department | Care Team | Description | +--------+ + + + + | 07/25/ | Hospital | [facility] | [place], | | | 2010 | Encounter | MED CTR EMERGENCY | Ozzy Kim MD [address] | | | | | CENTER [address] | [address] [facility] | | | | | [place], [place] | [place] [address] | | | | | [address] | [phone] | | | | | [phone] | | | +--------+ + + + [...] | | | | [place] [facility] [place] | | | | | | [address] | | | | | | | | +--------+---------+ + + + | 11/24/ | Office | Cardiology | Flores, | | | 2019 | Visit | | SINDHU Erickson [address] | | | | | | [place], | | | | | | [place] [address] | | | | | | [phone] | | | | | | | [...] - 1.030 | [facility] | | | [place] | | | [facility] | | [...] + | [facility] | [address] | [place], [place] | [phone] | | [facility] | | [address] | | | - LABORATORY | | | | + + + + + | [facility] | [address] | [place] | | | [facility] | | [address] | | | - LABORATORY | | | | + + + + + documented in this encounter Visit Diagnoses Not on filedocumented in this encounter"
--- OUTSIDE RECORDS SUMMARY | ~2019-02-28 | XMS | Encounter Summary ---
Demographics + + + | Address | [address] | | | [place] [address] | + + + | Home Phone [...] Team Providers + +------+ + | Care Multicut Line Operator Name | Role | Phone [...] | | | | CENTER [address] | [address] [place] | encounter (Primary | | | | [place], [place] | [place] [address] | Dx); Fall at home, | | | | [address] | [phone] | initial encounter; | | | | [phone] | | Contusion of left | | [...] be sent through Care Everywhere.CONCUSSION, AFT ER ([place])FRACTURE, NOSE, WITH X-RAY ([place])documented in this encounter Medications at Time of [...] | 0 | 10/13/19 | | | Xhutkbauwg-ODVB-Zdsy | mouth as needed. | | | 16 | 7 | | -Cod 07-052-12-30 MG | | | | | | [...] | | | | | | [place] [address] | | | | | | [phone] | | | | | | | [...]
--- OUTSIDE RECORDS SUMMARY | ~2019-02-28 | XMS | Encounter Summary ---
Demographics + + + | Address | [address] | | | [place] [address] | + + + | Home Phone [...] Providers + +------+ + | Care Practice Billing Associate Name | Role | Phone | + +------+ + | Juan Cherry DO | PCP | | + +------+ + Encounter Details +--------+ + + + + | Date | Type | Department | Care Team | Description | +--------+ + + + + | 02/22/ | Hospital | [facility] | Ozzie Hayes | | | 2011 | Encounter | MED CTR EMERGENCY | MD Ran [address] | | | | | [place] [address] | [address] [facility] | | | | | [place], [place] | [place] [address] | | | | | [address] | [phone] | | | | | [phone] | | | +--------+ + + + [...] | | | | | | [place] [address] | | | | | | [phone] | | | | | | | [...] At | + + + | [facility] Diagnostic Imaging | [facility] | | Department [address] [place] [address] | [facility] | | [ rep ct street1+2] [ rep ct [facility] | | st zip] Signed | - IMAGING | | | | | Patient Name: THEOPANFILOJADYN W | | | Physician: CHEVY : 1965 Age: 47 Sex: F Unit | | | #: [id number] Exam Date: 02/23/12 Location: | | | ER Report #: [id number] Page: | | | %(RAD)RES..mtdd.print.filter("pg") of %(RAD) | | | RES..mtdd.print.filter("tpg") | | | | | | Accession Number: [id number] | | | ENHANCED CT ABDOMEN AND [...] ER staff by the | | | [facility] radiologist on 02/23/2012 at 0741 hours. | | | Dictated Date/Time: 02/23/2012 12:00 Transcribed Date/Time: | | | 02/23/2012 12:15 Resident Physician: | | | <<Signature on File>> | | | Aditya Alonso | | | MD Claudio02/23/12 1374 <Electronically signed by Aditya Snyder MD> | | | Aditya Snyder MD 02/23/12 1200 Resident Physician: | | | Grasprmedx Atirkszbexlcs93/30/12 1215 Ozzie Hayes MD | | | | | + + + + + + + + | Performing | Address | City/State/Zipcode | Phone Number | | Organization | | | | + + + + + | [facility] | [address] | [place] | [phone] | | [facility] | | [address] | | | - IMAGING | | [...] - 1.030 | [facility] | | | [place] | | | [facility] | | [...] + | [facility] | [address] | [place] | [phone] | | [facility] | | [address] | | | - LABORATORY | | | | + + + + + | [facility] | [address] | [place] | | | [facility] | | [address] | | | - LABORATORY | | [...] + | [facility] | [address] | [place] | [phone] | | [facility] | | [address] | | | - LABORATORY | | | | + + + + + | [facility] | [address] | [place], [place] | | | [facility] | | [address] | | | - LABORATORY | | [...] + | [facility] | [address] | [place], [place] | [phone] | | [facility] | | [address] | | | - LABORATORY | | | | + + + + + | [facility] | [address] | [place], [place] | | | [facility] | | [address] | | | - LABORATORY | | [...] + | [facility] | [address] | [place] | [phone] | | [facility] | | [address] | | | - LABORATORY | | | | + + + + + | [facility] | [address] | [place], [place] | | | [facility] | | [address] | | | - LABORATORY | | [...] + | [facility] | [address] | [place], [place] | [phone] | | [facility] | | [address] | | | - LABORATORY | | | | + + + + + | [facility] | [address] | [place], [place] | | | [facility] | | [address] | | | - LABORATORY | | | | + + + + + documented in this encounter Visit Diagnoses Not on filedocumented in this encounter
--- OUTSIDE RECORDS SUMMARY | ~2019-02-28 | XMS | Encounter Summary ---
Demographics + + + | Address | [address] | | | [place] [address] | + + + | Home Phone [...] Team Providers + +------+ + | Care Powerhouse Electrician Name | Role | Phone | [...] | Concussion | Aaron Kim MD | Disability Rater [address] | | | Required | | with brief | [address] | [place] | | | | | loss of | [address] | [place], [place] | | | | | consciousnes | [place], | [address] | | | | | s Word | [place] [address] | Phone: | | | | | finding | Phone: | [phone] | | | | | difficulty | [phone] | Fax: | | | | | [phone] | Fax: | [phone] | | | | | (ICD-10-CM) | [phone] | | | | | | - [...] + + | 05/23/ | Hospital | [facility] | Aaron Rodriguez, | Concussion with | | 2017 | Encounter | MED CTR SPEECH | MD [address] | brief (less than one | | | | THERAPY [address] | [place], [place] | hour) loss of | | | | [place], | [address] | consciousness | | | | [place] [address] | | (Primary Dx); | | | | [phone] | Kathi Soto, | Impaired memory; | [...] | | | send order to [facility] | | | | [...] | 0 | 10/13/19 | | | Sntghyhric-XLHS-Mtzx | mouth as needed. | | | 16 | 7 | | -Cod 90-951-46-30 MG | | | | | | [...] Speech Pathologist - 05/23/2016 7:06 PM PDT [facility]ERAPY [address] [facility] [address] Speech Therapy Daily Treatment Note Date: 05/23/2016 [...] Precautions Precautions None Rehab Learning Style [facility] REAL ESTATE ACCOUNT EXECUTIVE OP EVAL from 05/16/2016 in [facility] [...] | | | | [place], [place] | | | | | | [address] | | | | | | | | +--------+---------+ + + + | 11/24/ | Office | Cardiology | Flores, | | | 2019 | Visit | | GeorginaSINDHU [address] | | | | | | [place], | | | | | | [place] [address] | | | | | | [phone] | | | | | | | [...]
--- OUTSIDE RECORDS SUMMARY | ~2019-02-28 | XMS | Encounter Summary ---
Demographics + + + | Address | [address] | | | [place] [address] | + + + | Home Phone [...] Team Providers + +------+ + | Care Cottage Cheese Maker Name | Role | Phone | + +------+ + | Juan Cherry DO | PCP | | + +------+ + Encounter Details +--------+ + + + + | Date | Type | Department | Care Team | Description | +--------+ + + + + | 02/26/ | Hospital | [facility] | Dio Yun | Dysphagia, | | 2017 | Encounter | MED CTR XRAY [address] | MD [address] | unspecified type | | | | [place] | [place] [address] | | | | | [place] [address] | [place], [place] | | | | | [phone] | [address] | | | | | | [phone] | | | | | | | [...] | 0 | 10/13/19 | | | Ysdbndseyr-YXLC-Ngtb | mouth as needed. | | | 16 | 7 | | -Cod 84-138-10-30 MG | | | | | | [...] | | | | | | [place] [address] | | | | | | [phone] | | | | | | | [...]
--- OUTSIDE RECORDS SUMMARY | ~2019-02-28 | XMS | Encounter Summary ---
Demographics + + + | Address | [address] | | | [place] [address] | + + + | Home Phone [...] Team Providers + +------+ + | Care Binder Stripper Hand Name | Role | Phone | + +------+ + PCP | Unavailable | + +------+ + Encounter Details +--------+ + + + + | Date | Type | Department | Care Team | Description | +--------+ + + + + | 11/01/ | [facility] | [facility] | | | | 2008 | Encounter | MED CTR XRAY [address] | | | | | | [place] | | | | | | [place] [address] | | | | | | [phone] | | | +--------+ + + + [...] [place] | | | | | | [address] | | | | | | | | +--------+---------+ + + + | 11/24/ | Office | Cardiology | [place], | | | 2020 | Visit | | SINDHU Erickson [address] | | | | | | [place], | | | | | | [place] [address] | | | | | | [phone] | | | | | | | | +--------+---------+ + + + documented as of this encounter Visit Diagnoses Not on filedocumented in this encounter"
--- OUTSIDE RECORDS SUMMARY | ~2019-02-28 | XMS | Encounter Summary ---
Demographics + + + | Address | [address] | | | [place] [address] | + + + | Home Phone [...] Providers + +------+ + | Care Personal Financial Advisor Name | Role | Phone | [...] + | 08/28/ | Documentati | [facility] | Kathi Soto, | No Show | | 2017 | on | MED CTR SPEECH | Speech Pathologist | | | | | THERAPY [address] | | | | | | [place], | | | | | | [place] [address] | | | | | | [phone] | | | +--------+ + + + [...] Speech Pathologist - [facility]28[facility]2016 [facility] [address] [place] [address] Cancellation/No Show Date: 08/28/2016 Patient Information Patient [...] [place] | | | | | | [id number] | | | | | | | | +--------+---------+ + + + | 11/24/ | Office | Cardiology | [place], | | | 2019 | Visit | | SINDHU Erickson [address] | | | | | | [place] | | | | | | [place] [address] | | | | | | [phone] | | | | | | | | +--------+---------+ + + + documented as of this encounter Visit Diagnoses Not on filedocumented in this encounter"
--- OUTSIDE RECORDS SUMMARY | ~2019-02-28 | XMS | Encounter Summary ---
Demographics + + + | Address | [address] | | | [place] [address] | + + + | Home Phone [...] Providers + +------+ + | Care Oil Driller Name | Role | Phone | [...] | (Primary Dx); | | | | [place] [address] | | Central sleep apnea; | | | | [phone] | | Insomnia | +--------+---------+ + + [...] [place] | | | | | | [address] | | | | | | | | +--------+---------+ + + + | 11/24/ | Office | Cardiology | [place], | | | 2019 | Visit | | SINDHU Erickson [address] | | | | | | [place], | | | | | | [place] [address] | | | | | | [phone] | | | | | | | [...]
--- OUTSIDE RECORDS SUMMARY | ~2019-02-28 | XMS | Encounter Summary ---
Demographics + + + | Address | [address] | | | [place] [address] | + + + | Home Phone [...] + +------+ + | Care Director Of Nursing Name | Role | Phone | + +------+ + | Juan Cherry DO | PCP | | + +------+ + Encounter Details +--------+ + + + + | Date | Type | Department | Care Team | Description | +--------+ + + + + | 09/20/ | Orders Only | [facility] | Provider, | | | 2018 | | SYSTEM GENERIC OP | MD [address] | | | | | CONVERSION [address] | [place]. | | | | | [address] [place], [place] | [place] [address] | | | | | [address] | | | | | | [phone] | | | +--------+ + + + [...] [place] | | | | | | [address] | | | | | | | | +--------+---------+ + + + | 11/24/ | Office | Cardiology | [place], | | | 2020 | Visit | | SINDHU Erickson [address] | | | | | | [place], | | | | | | [place] [address] | | | | | | [phone] | | | | | | | | +--------+---------+ + + + documented as of this encounter Visit Diagnoses Not on filedocumented in this encounter"
--- OUTSIDE RECORDS SUMMARY | ~2019-02-28 | XMS | Encounter Summary ---
Demographics + + + | Address | [address] | | | [place] [address] | + + + | Home Phone [...] Team Providers + +------+ + | Care Angledozer Operator Name | Role | Phone | [...] + + | 09/02/ | Hospital | [facility] | [place], | Shortness of breath; | | 2017 | Encounter | MED CTR NUCLEAR | SINDHU Erickson [address] | Racing heart beat; | | | | MEDICINE [address] | [place], | Palpitations | | | | [place], | [place] [address] | | | | | [place] [address] | [phone] | | | | | [phone] | | | +--------+ + + + [...] | | | order to [facility]. | | | | | [...] | | | | | | [place] [address] | | | | | | [phone] | | | | | | | [...]
--- OUTSIDE RECORDS SUMMARY | ~2019-02-28 | XMS | Encounter Summary ---
Demographics + + + | Address | [address] | | | [place] [address] | + + + | Home Phone [...] Providers + +------+ + | Care Field Representatives Director Name | Role | Phone | [...] Juliette, | | | | | | [facility] | Shashi Witt MD | | | | | Headache(784 | [address] | Need | | | | | .0) | [place] | updated | | | | | | [place], | address | | | | | | [place] | | | | | | | [address] | | | | | | | Phone: | | | | | | | [phone] | | | | | | | Fax: | | | | | | | [phone] | | +--------+--------+ + + + + Encounter Details +--------+---------+ + + + | Date | Type | Department | Care Team | Description | +--------+---------+ + + + | 10/19/ | Office | [facility] | Shashi Segovia | Migraines (Primary | | 2013 | Visit | NEUROLOGY ADRIANA | MD Miryam Need updated | Dx); Pituitary mass | | | | [address] [facility], | address | ([facility]) | | | | [address] [place] | | | | | | [place] [address] | | | | | | [phone] | | | +--------+---------+ + + + [...] the face Difficulty with speech or vision 4205[address] [place] [address]. All rights reserve d. This information is not intended as a substitute for professional medical care. Always fo llow your healthcare professional's instructions. documented in this encounter Progress Notes Shashi Segovia MD - 10/19/2013 8:09 AM PDTFormatting of this note might be differe nt from the original. Shashi Segovia MD [address] [place] [address], [address] [place] [id number] Neurology Outpatient New Patient Note Chief Complaint: [...] has had extensive work up at [facility] in the past, and returns there [...] duct (pouch) ([facility]) 10/28/2012 Overview: Managed by [facility] along with hypothyroidism Osteoarthritis Tachycardia Asthma Emphysema ([facility]) Migraine Past Surgical History: Past Surgical History Procedure Date Hammer toe surgery right sided Hiatal hernia repair Hiatal hernia Krik and bso Ovarian cysts, not cancer Colonoscopy 03/2010 Colonoscopy 1995 [facility] Knee surgery right Wrist surgery right [...] order as appropriate) Diagnosis Code(s)327.23 . [facility] of Need 99 months. Please send order to [facility]. Respiratory Therapy Supplies MISC (Taking) Change CPAP back to 11-14 cm H2O. All necessar y supplies. No oxygen bleed in. Diagnosis Code(s)327.23. Length of Need: Lifetime. Please se nd order to [facility]. This is not a [...] 1 Years of Education: 13 Occupational History [employer] Home Social History Main Topics Smoking status: [...] (145 lb) | BMI 26.51 kg /m2 [place] Sleepiness Scale: 13 General: cachetic HEENT: normal [...] records of labs, notes, images from [facility] - Will check baseline pituitary function [...] [place] | | | | | | [id number] | | | | | | | | +--------+---------+ + + + | 11/24/ | Office | Cardiology | [place], | | | 2019 | Visit | | SINDHU Erickson [address] | | | | | | [place], | | | | | | [place] [address] | | | | | | [phone] | | | | | | | [...] [place] | | | | | | [address] | | | | + + + [...] | Cortisol, | 8.77Comment: Reference | ug/g COUNTY AGENT | REFERENCE | | | Urine, | [...] | | | | than 32 ug/g 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 | | | | | | [address], [place] | | | | | | [id number] Performed: | | | | | | [facility], [address], | | | | | | [place] [address] | | | | + + + + + + + + | Specimen | + + | Urine specimen | | (specimen) | + + + + + + + | Performing | Address | City/State/Zipcode | Phone Number | | Organization | | | | + + + + + | [facility] | [address] | [place] [address] | [phone] | + + + + + Adrenocorticotropic [...] [place] | | | | | | [address] | | | | + + + [...] [address] | [place] [address] | [phone] | + + + + + Insulin-Like [...] | | | | | [place] [address] | | | | + + + + + + + + | Specimen | + + | Blood specimen | | (specimen) | + + + + + + + | Performing | Address | City/State/Zipcode | Phone Number | | Organization | | | | + + + + + | [facility] | [address] | [place] [address] | [phone] | + + + + + Prolactin [...] [place] | | | | | | [address] | | | | + + + [...] [address] | [place] [address] | [phone] | + + + + + documented [...]
--- OUTSIDE RECORDS SUMMARY | ~2019-02-28 | XMS | Encounter Summary ---
Demographics + + + | Address | [address] | | | [place] [address] | + + + | Home Phone [...] Providers + +------+ + | Care Garment Parts Cutter Machine Name | Role | Phone | [...] | sleep apnea) | | | | [place], | | | | | | [place] [address] | | | | | | [phone] | | | +--------+ + + + [...] [place] | | | | | | [address] | | | | | | | | +--------+---------+ + + + | 11/24/ | Office | Cardiology | [place], | | | 2020 | Visit | | SINDHU Erickson [address] | | | | | | [place], | | | | | | [place] [address] | | | | | | [phone] | | | | | | | | +--------+---------+ + + + documented as of this encounter Visit Diagnoses + + | Diagnosis | + + | GARRY (obstructive sleep apnea) Obstructive sleep apnea (adult) (pediatric) | + + documented in this encounter"
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
--- OUTSIDE RECORDS SUMMARY | ~2019-02-28 | XMS | Encounter Summary ---
Demographics + + + | Address | [address] | | | [place] [address] | + + + | Home Phone [...] Providers + +------+ + | Care Fur Grader Name | Role | Phone | [...] + + | 08/26/ | Emergency | [facility] | Ozzie Hayes | COPD (chronic | | 2015 | | MED CTR EMERGENCY | MD Ran [address] | obstructive | | | | [facility] [address] [place] | [place] [facility] | pulmonary disease) | | | | [place] | [place] [address] | ([facility]) (Primary Dx) | | | | [address] | [phone] | | | | | [phone] | | | +--------+ + + + [...] sent through Care Everywhere.COPD, WHAT IS ( [place])documented in this encounter Medications at Time of [...] [place] | | | | | | [address] | | | | | | | | +--------+---------+ + + + | 11/24/ | Office | Cardiology | [place], | | | 2019 | Visit | | SINDHU Erickson [address] | | | | | | [place], | | | | | | [place] [address] | | | | | | [phone] | | | | | | | [...] -------- ---- | | | 08/26/2014 04:46 [facility] | | | Center Emergency -Difficulty Breathing 07/10/2014 13:41 | | | [facility] Emergency 0. | | | SYNCOPAL EPISODE VISIT COUNT (1 YR.) Visits Medicaid [place] | | | Dx Location ------ --------- 2 | | | 0 [facility] 3 | | | 0 [facility] 5 | | | 0 Total Note: Visits indicate | | | total known visits. Medicaid [place] Dx are the number of primary diagnoses | | | on the [facility]'s non-emergent dx list. | | | | | | --- BALWINDER has no Care Guidelines for this patient. [place] | | | Prescription Review PDMP Report [...]
--- OUTSIDE RECORDS SUMMARY | ~2019-02-28 | XMS | Encounter Summary ---
Demographics + + + | Address | [address] | | | [place] [address] | + + + | Home Phone [...] | Merged With [facility] | | | [...] Team Providers + +------+ + | Care Recoverer Name | Role | Phone | + [...] Concussion | Aaron Kim MD | Diesel Instructor [address] | | | Required | | with brief | [address] | [place] | | | | | loss of | [address] | [place], [place] | | | | | consciousnes | [place], | [address] | | | | | s Word | [place] [address] | Phone: | | | | | finding | Phone: | [phone] | | | | | difficulty | [phone] | Fax: | | | | | [id number] | Fax: | [phone] | | | | | (ICD-10-CM) | [phone] | | | | | | - [...] + + | 08/21/ | Hospital | [facility] | Aaron Rodriguez, | Impaired memory | | 2017 | Encounter | MED CTR SPEECH | MD [address] | (Primary Dx); Word | | | | THERAPY [address] | [place] | finding difficulty | | | | [place], | [address] | | | | | [place] [address] | | | | | | [phone] | Kathi Soto, | | | | [...] | | | | | | | [facility]. | | | | | [...] | 0 | 10/13/19 | | | Rrwsqmedjn-RSDE-Mlzo | mouth as needed. | | | 16 | 7 | | -Cod [id number] MG | | | | | | [...] Speech Pathologist - 08/21/2016 2:14 PM PDT LOCATED WITHIN [facility] SPEECH THERAPY [address] [facility] [address] Speech Therapy Daily Treatment Note Date: 08/21/2016 Patient Information Patient Name: Rosario Malik Date of : 1965 Age: 51 y.o. Encounter Diagnoses Code Name Primary? R41.3 Impaired memory Yes R47.89 Word finding difficulty Date of Onset: 03/15/2016 Referring Provider: Aaron Rodriguez MD Rehab Precautions Flowsheet Row Office Visit from 05/01/2016 in [facility]ATED [facility]IN [facility] THERAPY PT OP Rehab Precautions Precautions None Rehab Learning Style Flowsheet Row [facility] OP EVAL from 05/16/2016 in LOCATED [facility]IN [facility] SPEECH THERAPY O ffice Visit from 05/01/2016 in LOCATED [facility]IN [facility] THERAPY PT OP Learning Style [...] | | | | [place] | | | | | | [id number] | | | | | | | | +--------+---------+ + + + | 11/24/ | Office | Cardiology | [place], | | | 2019 | Visit | | SINDHU Erickson [address] | | | | | | [place], | | | | | | [place] [address] | | | | | | [phone] | | | | | | | [...]
--- OUTSIDE RECORDS SUMMARY | ~2019-02-28 | XMS | Encounter Summary ---
Demographics + + + | Address | [address] | | | [place] [address] | + + + | Home Phone [...] Providers + +------+ + | Care Corporate Development Associate Name | Role | Phone | [...] + + | 07/14/ | Emergency | [facility] | Ozzie Hayes | Acute exacerbation | | 2013 | | MED CTR EMERGENCY | MD Ran [address] | of COPD with asthma | | | | [place] [address] [place] | [place] [facility] | ([facility]) (Primary Dx) | | | | [place], [place] | [place] [address] | | | | | [address] | [phone] | | | | | [phone] | | | +--------+ + + + [...] | | | | order to [facility]. | | | | | [...] [place] | | | | | | [address] | | | | | | | | +--------+---------+ + + + | 11/24/ | Office | Cardiology | [place], | | | 2019 | Visit | | SINDHU Erickson [address] | | | | | | [place], | | | | | | [place] [address] | | | | | | [phone] | | | | | | | [...] | 0.76 | 0.60 - 1.30 | [facility] | | | | | [...] mL/min/1.73m2 | [facility] | | | [place] | RATE,ESTIMATED | | MEDICAL | | | | mL/min/1.13f5Cbql than | | CENTER - | | [...] + | [facility] | [address] | [place] | [phone] | | [facility] | | [address] | | | - LABORATORY | | | | + + + + + | [facility] | [address] | [place], [place] | | | [facility] | | [address] | | | - LABORATORY | | [...] + + | Performing | Address | City/[facility] | Phone Number | | Organization | | | | + + + + + | [facility] | [address] | [place] | [phone] | | [facility] | | [address] | | | - LABORATORY | | | | + + + + + | [facility] | [address] | [place] | | | [facility] | | [address] | | | - LABORATORY | | [...] + | MISCELLANEOUS LAB | | | [phone] | + +---------+ + + | MISCELANIOUS LAB | | | [phone] | + +---------+ + + ED INFORMATION EXCHANGE (07/14/2013 12:20 AM PDT) + + | Specimen | + + | | + + + + + | Narrative | Performed At | + + + | VISIT TRACKING (3 MO.) Visit Date Location | [facility] | | Type Diagnoses | | | -------- | | | ---- 07/14/2013 00:15 [facility] | | | [facility] Emergency Shortness of Breath; | | | 06/19/2013 21:06 [facility] | | | Emergency Obstructive chronic bronchitis with (acute) | | | exacerbation; | | | Shortness of | | | Breath; | | | diff breathing; | | | 06/19/2013 11:03 [facility] | | | Emergency COPD exasperation; 05/23/2013 19:52 [facility] | | | [facility] Emergency Obstructive chronic | | | bronchitis with (acute) exacerbation; | | | | | | Obstructive chronic bronchitis with (acute) exacerbation; | | | | | | sob; | | | | | | Shortness of Breath; VISIT COUNT (1 YR.) Visits | | | Medicaid [place] Dx Location ------ | | | --------- 10 0 [facility] | | | [facility] 10 0 Total | | | Note: Visits indicate total known visits. Medicaid [place] Dx are the | | | number of primary diagnoses on the [facility]'s non-emergent dx list. | [...]
--- OUTSIDE RECORDS SUMMARY | ~2019-02-28 | XMS | Encounter Summary ---
Demographics + + + | Address | [address] | | | [place] [address] | + + + | Home Phone [...] Team Providers + +------+ + | Care Recovery Operator Helper Name | Role | Phone [...] | | | | [facility] | [address] | [address] | | | | | EXERCISE | [place], | [place] | | | | | | [place] [address] | [place], [place] | | | | | | Phone: | [address] | | | | | | [phone] | Phone: | | | | | | Fax: | [phone] | | | | | | [phone] | Fax: | | | | | | | [phone] | +--------+--------+ + + + + Encounter Details +--------+---------+ + + + | Date | Type | Department | Care Team | Description | +--------+---------+ + + + | 07/04/ | Office | [facility] | Jared Mcdonough, | Chronic obstructive | | 2017 | Visit | MED CTR CARDIAC | MD Migdalia King | pulmonary disease, | | | | REHABILITATION [address] [place], | unspecified COPD | | | | [address] [place] | [place] [address] | type (HCC) (Primary | | | | [place] [address] | [phone] | Dx); Mild persistent | | | | [phone] | | asthma without | | | [...] [place] | | | | | | [address] | | | | | | | | +--------+---------+ + + + | 11/24/ | Office | Cardiology | [place], | | | 2019 | Visit | | SINDHU Erickson [address] | | | | | | [place], | | | | | | [place] [address] | | | | | | [phone] | | | | | | | [...]
--- OUTSIDE RECORDS SUMMARY | ~2019-02-28 | XMS | Encounter Summary ---
Demographics + + + | Address | [address] | | | [place] [address] | + + + | Home Phone [...] Providers + +------+ + | Care Patient Placement Coordinator Name | Role | Phone | [...] + + | 09/02/ | Hospital | [facility] | [place], | Shortness of breath; | | 2017 | Encounter | MED CTR NUCLEAR | SINDHU Erickson [address] | Racing heart beat; | | | | MEDICINE [address] | [place], | Palpitations | | | | [place], | [place] [address] | | | | | [place] [address] | [phone] | | | | | [phone] | | | +--------+ + + + [...] | | | | | | [place] [address] | | | | | | [phone] | | | | | | | [...]
--- OUTSIDE RECORDS SUMMARY | ~2019-02-28 | XMS | Encounter Summary ---
Demographics + + + | Address | [address] | | | [place] [address] | + + + | Home Phone [...] Team Providers + +------+ + | Care Chuck Boner Name | Role | Phone | + [...] | | MD Jared | [address] | | | | | Pericarditis | [address] | [place], | | | | | Procedures | [address] | [place] | | | | | ECHO | [place], | [address] | | | | | Complete | [place] [address] | Phone: | | | | | | Phone: | [phone] | | | | | | [phone] | Fax: | | | | | | Fax: | [phone] | | | | | | [phone] | | +--------+--------+ + + + + [...] | CARDIOLOGY [address] | [address] | (Primary Dx); | | | | [place], | [place], | Palpitation; | | | | [place] [address] | [place] [address] | Tachycardia; | | | | [phone] | [phone] | Pericarditis | | | | | [...] referred to Dr. Ding [facility] tachycardia ablation. Patient was seen by [...] was seen at the ED of [facility] 3 weeks ago. There was no specific [...] by mouth Daily. Respiratory Therapy Supplies [facility] Incentive spirometer. Please provide instructions in use. Dx: 848.8 MADELEINE: 3 months 1 each 99 Respiratory Therapy Supplies [facility] Please provide patient with necessary CPAP supplies ( she did not specify, okay to send order as appropriate) Diagnosis Code(s)327.23 . Length of Need 99 months. Please send order to [facility]. 1 each 0 Respiratory Therapy Supplies [...] was seen at the ED of [facility] 3 weeks ag o. according to the history, I suspect that she has pericarditis. However, EKG shows no ST elevation. Physical exam shows no pericardial rub. Patient states that she is allergic to NSAID's There is no signs and symptoms of overt congestive heart failure. She is in a class II of [place] [employer] functional class. There is no [...] ventricular function don e at the [facility]. LVEF 78%. C. Holter Monitor [...] weeks. Electronically signed by: Jared Mcdonough MD [facility] 01/11/2014 Portions of this chart may have been created with [employer] voice recognition software. Occasi onal wrong-word or [...] | | | | | | [place], | | | | | | [place] [address] | | | | | | [phone] | | | | | | | [...] Performed At | + + + | [facility] ECHOCARDIOGRAM REPORT | ELIZABETH | | STUDY DATE: 01/14/2014 PATIENT NAME: Rosario Malik | [facility] | | : 1965 PCP: Juan Cherry, [facility] | | CLINICAL HISTORY/DIAGNOSIS: Pericarditis/pericardial effusion [...] by: | | | Jared Mcdonough MD [facility] 01/14/2014 8:40 Director Pharmacovigilance: | | | Charmaine Ibarra RDMS | | + + + + + | Procedure Note | + + | Jared Mcdonough MD - 01/14/2014 11:28 AM [facility] | | CENTERECHOCARDIOGRAM REPORTSTUDY DATE: 01/14/2014PATIENT NAME: Rosario AyersOB: | | 1965MRN: [id number]: EFREN GuillaumeLINICAL HISTORY/DIAGNOSIS: | | Pericarditis/pericardial effusionA [...] | mmHgLA volume: 30 mLLA index: 18 mL/g7Qwbhxd Inflow DT: 262 msIVRT: 75 msValsalva: | | NegativePWDTI S wave: 8.7 cm/sPWDTI E wave: 9.0 cm/sPWDTI A wave: 11.5 cm/sE/A Ratio: | | 0.783E/E Ratio: 8.95Signed by: Jared Mcdonough MD [facility] 01/14/2014 8:40 | | Director Pharmacovigilance: Charmaine Ibarra RDMS | | | | [...] | | |Signed by: Jared Mcdonough MD [facility] | | 01/14/2014 8:40 | | | | | |Director Pharmacovigilance: Charmaine Ibarra RDMS | + + + + + + + | Performing | Address | City/State/Zipcode | Phone Number | | Organization | | | | + + + + + | [facility] | [address] | [place] | [phone] | | [facility] | | [address] | | | - IMAGING | | [...]
--- OUTSIDE RECORDS SUMMARY | ~2019-02-28 | XMS | Encounter Summary ---
Demographics + + + | Address | [address] | | | [place] [address] | + + + | Home Phone [...] Providers + +------+ + | Care Exceptional Children Teacher Assistant Name | Role | Phone | + +------+ + | Juan Cherry DO | PCP | | + +------+ + Encounter Details +--------+ + + + + | Date | Type | Department | Care Team | Description | +--------+ + + + + | 02/26/ | Hospital | [facility] | Dio Yun | Dysphagia, | | 2017 | Encounter | MED CTR XRAY [address] | MD [address] | unspecified type | | | | [place] | [place] [address] | | | | | [place] [address] | [place], [place] | | | | | [phone] | [address] | | | | | | [phone] | | | | | | | [...] | 0 | 10/13/19 | | | Jhkqbekcgx-LDCR-Syqs | mouth as needed. | | | 16 | 7 | | -Cod [id number] MG | | | | | | [...] | | | | | | [place] [address] | | | | | | [phone] | | | | | | | [...]
--- OUTSIDE RECORDS SUMMARY | ~2019-02-28 | XMS | Encounter Summary ---
Demographics + + + | Address | [address] | | | [place] [address] | + + + | Home Phone [...] Providers + +------+ + | Care Medical Office Professional Instructor Name | Role | Phone | + +------+ + | Juan Cherry DO | PCP | | + +------+ + Encounter Details +--------+---------+ + + + | Date | Type | Department | Care Team | Description | +--------+---------+ + + + | 10/22/ | Office | [facility] | Jared Mcdonough, | Chronic obstructive | | 2017 | Visit | MED CTR CARDIAC | [address] | pulmonary disease, | | | | REHABILITATION [address] [facility] [facility], | unspecified COPD | | | | [address] [place] | [place] [address] | type (HCC) (Primary | | | | [place] [address] | [phone] | Dx); Mild persistent | | | | [phone] | | asthma without | | | [...] | | | | | | [place] [address] | | | | | | [phone] | | | | | | | [...]
--- OUTSIDE RECORDS SUMMARY | ~2019-02-28 | XMS | Encounter Summary ---
Demographics + + + | Address | [address] | | | [place] [address] | + + + | Home Phone [...] Team Providers + +------+ + | Care Set Up Inspector Name | Role | Phone | [...] CARDIOLOGY [address] | MD [address] | Dx) | | | | [place], | [place], | | | | | [place] [address] | [place] [id number] | | | | | [phone] | [phone] | | | | | | | [...] [place] | | | | | | [address] | | | | | | | | +--------+---------+ + + + | 11/24/ | Office | Cardiology | [place], | | | 2019 | Visit | | SINDHU Erickson [address] | | | | | | [place], | | | | | | [place] [address] | | | | | | [phone] | | | | | | | | +--------+---------+ + + + documented as of this encounter Visit Diagnoses + + | Diagnosis | + + | Tachycardia - Primary Tachycardia, unspecified | + + documented in this encounter
--- OUTSIDE RECORDS SUMMARY | ~2019-02-28 | XMS | Encounter Summary ---
Demographics + + + | Address | [address] | | | [place] [address] | + + + | Home Phone [...] Author | [facility] | | | and [place] | + [...] Providers + +------+ + | Care Dry Color Tester Name | Role | Phone [...] + | 08/17/ | Office | [facility] | Jared Mcdonough, | Hospital discharge | | 2015 | Visit | CARDIOLOGY [address] | [facility] | follow-up (Primary | | | | [place], | [place], | Dx); Tachycardia; | | | | [place] [address] | [place] [address] | Syncope, unspecified | | | | [phone] | [phone] | syncope type | | | | [...] patient was seen and admitted to [facility] on because she passed out. Workups [...] be assessed by crisis team in [facility] room, patient flat out refused to [...] tablet 3 Respiratory Therapy Supplies [facility] Please provide patient with necessary CPAP supplies ( she did not specify, okay to send order as appropriate) Diagnosis Code(s)327.23 . Length of Need 99 months. Please send order to [facility]. 1 each 0 [facility] Change CPAP back to 11-14 cm H2O. All necessary suppl ies. No oxygen bleed in. Diagnosis Code(s)327.23. Length of Need: Lifetime. Please send orde r to [facility]. This is not a new order, [...] Patient was seen and admitted to [facility] on 07/10/13 because she pa ssed [...] She is in a class I of [place] [employer] functional class. There is no [...] months. Electronically signed by: Jared Mcdonough MD LOCATED [facility]IN [facility] 08/17/2014 Portions of this chart may have been created with [employer]en[employer] voice recognition software. Occasi onal wrong-word or [...] [place] | | | | | | [address] | | | | | | | | +--------+---------+ + + + | 11/24/ | Office | Cardiology | [place], | | | 2019 | Visit | | SINDHU Erickson [address] | | | | | | [place], | | | | | | [place] [address] | | | | | | [phone] | | | | | | | [...]
--- OUTSIDE RECORDS SUMMARY | ~2019-02-28 | XMS | Encounter Summary ---
Demographics + + + | Address | [address] | | | [place] [address] | + + + | Home Phone [...] Team Providers + +------+ + | Care Full Stack Net Developer Name | Role | Phone | [...] | | | | | [address] [place] | | | | | | [place] [address] | | | | | | [phone] | | | +--------+ + + + [...] Weber, PT - [facility]14/2014 [facility] [address] [place] [address] Physical Therapy Discharge Note Date: 02/14/2014 Patient [...] | | | | | | [place] [address] | | | | | | [phone] | | | | | | | | +--------+---------+ + + + documented as of this encounter Visit Diagnoses Not on filedocumented in this encounter"
--- OUTSIDE RECORDS SUMMARY | ~2019-02-28 | XMS | Encounter Summary ---
Demographics + + + | Address | [address] | | | [place] [address] | + + + | Home Phone [...] Providers + +------+ + | Care Senior Web Services Developer Name | Role | Phone | + +------+ + PCP | Unavailable | + +------+ + Encounter Details +--------+ + + + + | Date | Type | Department | Care Team | Description | +--------+ + + + + | 06/26/ | [facility] | [facility] | | | | 2009 - | Encounter | MED CTR OP REHAB | | | | | | [address] | | | | 07/24/ | | [place] [address] | | | | 2009 | | [phone] | | | +--------+ + + + [...] [place] | | | | | | [address] | | | | | | | | +--------+---------+ + + + | 11/24/ | Office | Cardiology | [place], | | | 2020 | Visit | | SINDHU Erickson [address] | | | | | | [place], | | | | | | [place] [address] | | | | | | [phone] | | | | | | | | +--------+---------+ + + + documented as of this encounter Visit Diagnoses Not on filedocumented in this encounter"
--- OUTSIDE RECORDS SUMMARY | ~2019-02-28 | XMS | Encounter Summary ---
Demographics + + + | Address | [address] | | | [place] [address] | + + + | Home Phone [...] Providers + +------+ + | Care Baggage Porter Head Name | Role | Phone | [...] Alonso MD | | | | | [place], | | | | | | [place] [address] | | | | | | [phone] | | | +--------+--------+ + + + [...] | | | | | | [place] [address] | | | | | | [phone] | | | | | | | | +--------+---------+ + + + documented as of this encounter Visit Diagnoses Not on filedocumented in this encounter"
--- OUTSIDE RECORDS SUMMARY | ~2019-02-28 | XMS | Encounter Summary ---
Demographics + + + | Address | [address] | | | [place] [address] | + + + | Home Phone [...] Providers + +------+ + | Care Manager Supply Chain Planning Name | Role | Phone | + [...] [address] | | | | | [place], | [place] | | | | | [place] [address] | [address] | | | | | [phone] | | | +--------+--------+ + + + [...] [place] | | | | | | [address] | | | | | | | | +--------+---------+ + + + | 11/24/ | Office | Cardiology | [place], | | | 2019 | Visit | | SINDHU Erickson [address] | | | | | | [place] | | | | | | [place] [address] | | | | | | [phone] | | | | | | | | +--------+---------+ + + + documented as of this encounter Visit Diagnoses Not on filedocumented in this encounter"
--- OUTSIDE RECORDS SUMMARY | ~2019-02-28 | XMS | Encounter Summary ---
Demographics + + + | Address | [address] | | | [place] [address] | + + + | Home Phone [...] Providers + +------+ + | Care Field Underwriter Name | Role | Phone | + +------+ + | Juan Cherry DO | PCP | | + +------+ + Encounter Details +--------+ + + + + | Date | Type | Department | Care Team | Description | +--------+ + + + + | 10/19/ | Hospital | [facility] | Kevin Sandoval, | COPD (chronic | | 2013 | Encounter | MED CTR PULMONARY | MD [address] | obstructive | | | | FUNCTION [address] | [place], [place] | pulmonary disease) | | | | [place], | [address] | (HCC) | | | | [place] [address] | | | | | | [phone] | | | +--------+ + + + [...] | [facility]. | | | | | | | [...] [facility]) | every 3 days | | [...] [place] | | | | | | [id number] | | | | | | | | +--------+---------+ + + + | 11/24/ | Office | Cardiology | [place], | | | 2019 | Visit | | SINDHU Erickson [address] | | | | | | [place] | | | | | | [place] [address] | | | | | | [phone] | | | | | | | [...]
--- OUTSIDE RECORDS SUMMARY | ~2019-02-28 | XMS | Encounter Summary ---
Demographics + + + | Address | [address] | | | [place] [address] | + + + | Home Phone [...] Team Providers + +------+ + | Care Summer Babysitter Name | Role | Phone | + +------+ + PCP | Unavailable | + +------+ + Encounter Details +--------+ + + + + | Date | Type | Department | Care Team | Description | +--------+ + + + + | 01/24/ | [facility] | [facility] | | | | 2008 - | Encounter | MED CTR OP REHAB | | | | | | [address] | | | | 02/23/ | | [place] [address] | | | | 2008 | | [phone] | | | +--------+ + + + [...] [place] | | | | | | [address] | | | | | | | | +--------+---------+ + + + | 11/24/ | Office | Cardiology | [place], | | | 2020 | Visit | | SINDHU Erickson [address] | | | | | | [place], | | | | | | [place] [address] | | | | | | [phone] | | | | | | | | +--------+---------+ + + + documented as of this encounter Visit Diagnoses Not on filedocumented in this encounter"
--- OUTSIDE RECORDS SUMMARY | ~2019-02-28 | XMS | Encounter Summary ---
Demographics + + + | Address | [address] | | | [place] [address] | + + + | Home Phone [...] Providers + +------+ + | Care Insurance Inspector Name | Role | Phone | + +------+ + | Juan Cherry DO | PCP | | + +------+ + Encounter Details +--------+ + + + + | Date | Type | Department | Care Team | Description | +--------+ + + + + | 09/09/ | Hospital | [facility] IP | Conversion | Pain | | 2015 | Encounter | CONVERSION [address] | Transaction, | | | | | [address] | Provider Unknown | | | | | [place], [place] | [phone] | | | | | [address] | | | | | | [phone] | | | +--------+ + + + [...] | | | | | ([facility]) | | | | | | + [...] | | | | [address] [place] | | | | | | [id number] | | | | | | | | +--------+---------+ + + + | 11/24/ | Office | Cardiology | [place], | | | 2019 | Visit | | SINDHU Erickson [address] | | | | | | [place], | | | | | | [place] [address] | | | | | | [phone] | | | | | | | [...]
--- OUTSIDE RECORDS SUMMARY | ~2019-02-28 | XMS | Encounter Summary ---
Demographics + + + | Address | [address] | | | [place] [address] | + + + | Home Phone [...] Providers + +------+ + | Care Rn Observation Name | Role | Phone | + [...] Cert MA | | | | | [place], | | | | | | [place] [address] | | | | | | [phone] | | | +--------+ + + + [...] Description | +--------+---------+ + + + | / | Office | Pulmonology | Mukul Clark MD | | | 2019 | Visit | | [address] | | | | | | [place] | | | | | | [address] | | | | | | | | +--------+---------+ + + + | 11/24/ | Office | Cardiology | [place], | | | 2019 | Visit | | SINDHU Erickson [address] | | | | | | [place], | | | | | | [place] [address] | | | | | | [phone] | | | | | | | | +--------+---------+ + + + documented as of this encounter Visit Diagnoses Not on filedocumented in this encounter"
--- OUTSIDE RECORDS SUMMARY | ~2019-02-28 | XMS | Encounter Summary ---
Demographics + + + | Address | [address] | | | [place] [address] | + + + | Home Phone [...] Team Providers + +------+ + | Care Stainless Steel Finisher Name | Role | Phone | [...] W | | | | | [place], | [place], | | | | | [place] [address] | [place] [address] | | | | | [phone] | [phone] | | | | | | | [...] | | | | | | [place] [address] | | | | | | [phone] | | | | | | | | +--------+---------+ + + + documented as of this encounter Visit Diagnoses Not on filedocumented in this encounter"
--- OUTSIDE RECORDS SUMMARY | ~2019-02-28 | XMS | Encounter Summary ---
Demographics + + + | Address | [address] | | | [place] [address] | + + + | Home Phone [...] Providers + +------+ + | Care Coal Tower Operator Name | Role | Phone | + +------+ + PCP | Unavailable | + +------+ + Encounter Details +--------+ + + + + | Date | Type | Department | Care Team | Description | +--------+ + + + + | 10/06/ | [facility] | [facility] | | | | 2008 | Encounter | MED CTR LABORATORY | | | | | | [address] | | | | | | [place] | | | | | | [address] | | | | | | [phone] | | | +--------+ + + + [...] [place] | | | | | | [address] | | | | | | | | +--------+---------+ + + + | 11/24/ | Office | Cardiology | [place], | | | 2020 | Visit | | SINDHU Erickson [address] | | | | | | [place], | | | | | | [place] [address] | | | | | | [phone] | | | | | | | | +--------+---------+ + + + documented as of this encounter Visit Diagnoses Not on filedocumented in this encounter"
--- OUTSIDE RECORDS SUMMARY | ~2019-02-28 | XMS | Encounter Summary ---
Demographics + + + | Address | [address] | | | [place] [address] | + + + | Home Phone [...] Team Providers + +------+ + | Care Laundry Technician Name | Role | Phone | [...] Reynolds RN | | | | | [place], | | | | | | [place] [address] | | | | | | [phone] | | | +--------+ + + + [...] [place] | | | | | | [id number] | | | | | | | | +--------+---------+ + + + | 11/24/ | Office | Cardiology | [place], | | | 2019 | Visit | | SINDHU Erickson [address] | | | | | | [place] | | | | | | [place] [address] | | | | | | [phone] | | | | | | | | +--------+---------+ + + + documented as of this encounter Visit Diagnoses Not on filedocumented in this encounter"
--- OUTSIDE RECORDS SUMMARY | ~2019-02-28 | XMS | Encounter Summary ---
Demographics + + + | Address | [address] | | | [place] [address] | + + + | Home Phone [...] Providers + +------+ + | Care Commercial Subcontractor Name | Role | Phone | + [...] [address] | | | | | [place], | [place] | | | | | [place] [address] | [address] | | | | | [phone] | | | +--------+--------+ + + + [...] [place] | | | | | | [address] | | | | | | | | +--------+---------+ + + + | 11/24/ | Office | Cardiology | [place], | | | 2019 | Visit | | SINDHU Erickson [address] | | | | | | [place] | | | | | | [place] [address] | | | | | | [phone] | | | | | | | | +--------+---------+ + + + documented as of this encounter Visit Diagnoses Not on filedocumented in this encounter"
--- OUTSIDE RECORDS SUMMARY | ~2019-02-28 | XMS | Encounter Summary ---
Demographics + + + | Address | [address] | | | [place] [address] | + + + | Home Phone [...] Team Providers + +------+ + | Care Drapery Hand Name | Role | Phone | [...] [address] | CALL) | | | | [place], [place] | [facility] | | | | | [address] | [place] [address] | | | | | [phone] | [phone] | | | | | | | [...] [place] | | | | | | [address] | | | | | | | | +--------+---------+ + + + | 11/24/ | Office | Cardiology | [place], | | | 2019 | Visit | | SINDHU Erickson [address] | | | | | | [place], | | | | | | [place] [address] | | | | | | [phone] | | | | | | | | +--------+---------+ + + + documented as of this encounter Visit Diagnoses Not on filedocumented in this encounter"
--- OUTSIDE RECORDS SUMMARY | ~2019-02-28 | XMS | Encounter Summary ---
Demographics + + + | Address | [address] | | | [place] [address] | + + + | Home Phone [...] Providers + +------+ + | Care Drier And Evaporator Operator Name | Role | Phone | + +------+ + PCP | Unavailable | + +------+ + Encounter Details +--------+ + + + + | Date | Type | Department | Care Team | Description | +--------+ + + + + | 06/09/ | Hospital | [facility] | [place], | | | 2009 | Encounter | MED CTR EMERGENCY | Ozzy Kim MD [address] | | | | | [place] [address] | [address] [facility] | | | | | [place], [place] | [place] [address] | | | | | [address] | [phone] | | | | | [phone] | | | +--------+ + + + [...] [place] | | | | | | [id number] | | | | | | | | +--------+---------+ + + + | 11/24/ | Office | Cardiology | [place], | | | 2019 | Visit | | SINDHU Erickson [address] | | | | | | [place] | | | | | | [place] [address] | | | | | | [phone] | | | | | | | | +--------+---------+ + + + documented as of this encounter Visit Diagnoses Not on filedocumented in this encounter"
--- OUTSIDE RECORDS SUMMARY | ~2019-02-28 | XMS | Encounter Summary ---
Demographics + + + | Address | [address] | | | [place] [address] | + + + | Home Phone [...] + +------+ + | Care Data Processing Manager Name | Role | Phone | + +------+ + | Juan Cherry DO | PCP | | + +------+ + Encounter Details +--------+ + + + + | Date | Type | Department | Care Team | Description | +--------+ + + + + | 03/05/ | Hospital | [facility] IP | Conversion | Pain | | 2017 | Encounter | CONVERSION [address] | Transaction, | | | | | [address] | Provider Unknown | | | | | [place], [place] | [phone] | | | | | [address] | | | | | | [phone] | | | +--------+ + + + [...] | | [facility]. | | | | | | | [...] | 0 | 10/13/19 | | | Iycduwbnlf-LQBT-Tlvd | mouth as needed. | | | 16 | 7 | | -Cod [id number] MG | | | | | | [...] [place] | | | | | | [id number] | | | | | | | | +--------+---------+ + + + | 11/24/ | Office | Cardiology | [place], | | | 2019 | Visit | | SINDHU Erickson [address] | | | | | | [place] | | | | | | [place] [address] | | | | | | [phone] | | | | | | | [...]
--- OUTSIDE RECORDS SUMMARY | ~2019-02-28 | XMS | Encounter Summary ---
Demographics + + + | Address | [address] | | | [place] [address] | + + + | Home Phone [...] Providers + +------+ + | Care Physician Extender Name | Role | Phone | + [...] | (obstructive | [address] | [place] | | | | | sleep | [place] | [place], | | | | | apnea) | [place] | [place] [address] | | | | | J44.9 | [address] | Phone: | | | | | (ICD-10-CM) | Phone: | [phone] | | | | | - 496 | [phone] | Fax: | | | | | (ICD-9-CM) - | Fax: | [phone] | | | | | Chronic | [phone] | | | | | | obstructive [...] | | | | | | [place] POLYSOM | | | | | | | 6/>YRS SLEEP | | | | | | | W/CPAP 4/> | | | | | | | ADDL ALESSIA | | | | | | | ATTND [place] | | | | | | | [...] + + | 04/28/ | Hospital | [facility] | Meghan Garcia MD | GARRY (obstructive | | 2019 - | Encounter | MED CTR SLEEP | [address] [facility] | sleep apnea); | | | | CENTER [address] | [place] | Chronic obstructive | | 04/29/ | | [place] | [address] | pulmonary disease, | | 2019 | | [address] | | unspecified COPD | | | | [phone] | | type (HCC) | +--------+ + [...] | | | | | | | [facility]. | | | | | [...] [place] | | | | | | [address] | | | | | | | | +--------+---------+ + + + | 11/24/ | Office | Cardiology | [place], | | | 2019 | Visit | | SINDHU Erickson [address] | | | | | | [place], | | | | | | [place] [address] | | | | | | [phone] | | | | | | | [...] [facility] | | | [place] [address] Positive Airway | | | Pressure Titration [...] machine. She has tried to get her Chasqui Bus to add the | | | connection [...] her COPD through her | | | specialty sales representative.She says since she stopped using her bilevel [...] reviewed the notes from Dr. Alarcon in [place], [place]. | | | It indicates that [...] have | | | been created with [employer] voice recognition software. Occasional | | | [...] this chart may have been created with [employer] voice | | |recognition software. Occasional wrong-word [...] PST [facility] | | [place], [place] [address]Mesxksdr Airway Pressure Titration | | Report on [...] for her COPD | | through her specialty sales representative.She says since she stopped using her bilevel [...] reviewed the notes from Dr. Alarcon in [place], [place]. It | | indicates that patient [...] may have been created with | | [employer] voice recognition software. Occasional wrong-word or | [...]
--- OUTSIDE RECORDS SUMMARY | ~2019-02-28 | XMS | Encounter Summary ---
Demographics + + + | Address | [address] | | | [place] [address] | + + + | Home Phone [...] Team Providers + +------+ + | Care Jewelry Casting Model Maker Name | Role | Phone | [...] | Concussion | Aaron Kim MD | Business Quality Assurance Analyst [address] | | | Required | | with brief | [address] | [place] | | | | | loss of | [address] | [place], [place] | | | | | consciousnes | [place], | [address] | | | | | s Word | [place] [address] | Phone: | | | | | finding | Phone: | [phone] | | | | | difficulty | [phone] | Fax: | | | | | [id number] | Fax: | [phone] | | | | | (ICD-10-CM) | [phone] | | | | | | - [...] + + | 08/07/ | Hospital | [facility] | Aaron Rodriguez, | Concussion with | | 2017 | Encounter | MED CTR SPEECH | MD [address] | brief (less than one | | | | THERAPY [address] | [place], [place] | hour) loss of | | | | [place], | [address] | consciousness | | | | [place] [address] | | (Primary Dx); | | | | [phone] | Kathi Soto, | Impaired memory; | [...] | 0 | 10/13/19 | | | Fhzdurktpi-LSBT-Xhuz | mouth as needed. | | | 16 | 7 | | -Cod [id number] MG | | | | | | [...] HEALTH SPEECH THERAPY [address] [place] [address] Speech Therapy Daily Treatment Note Date: 08/07/2016 [...] None Rehab Learning Style Flowsheet Ayde WSM TRANSMISSION ASSEMBLER OP EVAL from 05/16/2016 [facility] [...] | | | | [address] [place] | | | | | | [address] | | | | | | | | +--------+---------+ + + + | 11/24/ | Office | Cardiology | [place], | | | 2019 | Visit | | SINDHU Erickson [address] | | | | | | [place], | | | | | | [place] [address] | | | | | | [phone] | | | | | | | [...]
--- OUTSIDE RECORDS SUMMARY | ~2019-02-28 | XMS | Encounter Summary ---
Demographics + + + | Address | [address] | | | [place] [address] | + + + | Home Phone [...] Team Providers + +------+ + | Care Friend Of The Court Name | Role | Phone | + [...] Alonso MD | | | | | [place], | | | | | | [place] [address] | | | | | | [phone] | | | +--------+--------+ + + + [...] | | | | | | [place] [address] | | | | | | [phone] | | | | | | | | +--------+---------+ + + + documented as of this encounter Visit Diagnoses Not on filedocumented in this encounter"
--- OUTSIDE RECORDS SUMMARY | ~2019-02-28 | XMS | Encounter Summary ---
Demographics + + + | Address | [address] | | | [place] [address] | + + + | Home Phone [...] Team Providers + +------+ + | Care Varnish Blender Name | Role | Phone | [...] + + | 08/01/ | Telephone | [facility] [place] | [place], | Lab Order (due for | | 2015 | | CARDIOLOGY [address] | SINDHU Erickson [address] | fasting labs) | | | | [place], | [place], | | | | | [place] [address] | [place] [address] | | | | | [phone] | [phone] | | | | | | | [...] [place] | | | | | | [id number] | | | | | | | | +--------+---------+ + + + | 11/24/ | Office | Cardiology | [place], | | | 2019 | Visit | | SINDHU Erickson [address] | | | | | | [place], | | | | | | [place] [address] | | | | | | [phone] | | | | | | | [...]
--- OUTSIDE RECORDS SUMMARY | ~2019-02-28 | XMS | Encounter Summary ---
Demographics + + + | Address | [address] | | | [place] [address] | + + + | Home Phone [...] Providers + +------+ + | Care Business Relationship Manager Name | Role | Phone | + +------+ + | Juan Cherry DO | PCP | | + +------+ + Encounter Details +--------+ + + + + | Date | Type | Department | Care Team | Description | +--------+ + + + + | 04/02/ | Hospital | [facility] | Dio Yun | | | 2017 | Encounter | MED CTR NUCLEAR | MD Jesus [address] | | | | | MEDICINE [address] | [place] OLMEDO [address] | | | | | [place], | [place], [place] | | | | | [place] [address] | [address] | | | | | [phone] | [phone] | | | | | | | [...] | | | order to [facility]. | | | | | + [...] | | | | | | | [facility]. | | | | [...] | 0 | 10/13/19 | | | Madieosjgr-ABAU-Dvov | mouth as needed. | | | 16 | 7 | | -Cod [id number] MG | | | | | | [...] | | | | | | [place] [address] | | | | | | [phone] | | | | | | | [...]
--- OUTSIDE RECORDS SUMMARY | ~2019-02-28 | XMS | Encounter Summary ---
Demographics + + + | Address | [address] | | | [place] [address] | + + + | Home Phone [...] + +------+ + | Care Medical Lab Specialist Name | Role | Phone | [...] | [place] | [facility] | | | | | [address] | [place] [address] | | | | | [phone] | [phone] | | | | | | | [...] [place] | | | | | | [address] | | | | | | | | +--------+---------+ + + + | 11/24/ | Office | Cardiology | Flores, | | | 2019 | Visit | | SINDHU Erickson [address] | | | | | | [place], | | | | | | [place] [address] | | | | | | [phone] | | | | | | | | +--------+---------+ + + + documented as of this encounter Visit Diagnoses Not on filedocumented in this encounter"
--- OUTSIDE RECORDS SUMMARY | ~2019-02-28 | XMS | Encounter Summary ---
Demographics + + + | Address | [address] | | | [place] [address] | + + + | Home Phone [...] + +------+ + | Care E Commerce Manager Name | Role | Phone | [...] Alonso MD | | | | | [place], | | | | | | [place] [address] | | | | | | [phone] | | | +--------+--------+ + + + [...] [place] | | | | | | [address] | | | | | | | | +--------+---------+ + + + | 11/24/ | Office | Cardiology | Flores, | | | 2019 | Visit | | SINDHU Erickson [address] | | | | | | [place], | | | | | | [place] [address] | | | | | | [phone] | | | | | | | | +--------+---------+ + + + documented as of this encounter Visit Diagnoses Not on filedocumented in this encounter"
--- OUTSIDE RECORDS SUMMARY | ~2019-02-28 | XMS | Encounter Summary ---
Demographics + + + | Address | [address] | | | [place] [address] | + + + | Home Phone [...] Team Providers + +------+ + | Care Candle Cutter Name | Role | Phone | [...] Insomnia; Need for | | | | [place], | | influenza | | | | [place] [address] | | vaccination | | | | [phone] | | | +--------+---------+ + + + [...] Maxim Delgado. Insomnia She continues to have liquid flavor compounder awakenings. I think this is in part [...] before bedtime. Need for influenza vaccination - [place] FLU VACCINE =>3YO PRESERVATIVE FREE IM 30 [...] | | | | | Jose [place] | | | | | | [address] | | | | | | | | +--------+---------+ + + + | 11/24/ | Office | Cardiology | Flores, | | | 2019 | Visit | | SINDHU Erickson [address] | | | | | | [place], | | | | | | [place] [address] | | | | | | [phone] | | | | | | | [...]
--- OUTSIDE RECORDS SUMMARY | ~2019-02-28 | XMS | Encounter Summary ---
Demographics + + + | Address | [address] | | | [place] [address] | + + + | Home Phone [...] Team Providers + +------+ + | Care Entertainer Or Variety Artist Name | Role | Phone | [...] | Office | [facility] | Guru Henao | Acute pain of right | | 2018 | Visit | CARE [address] | MD Aleyda [address] | wrist (Primary Dx); | | | | [place] | [place] | Osteoarthritis of | | | | [address] | [address] | first | | | | [phone] | | carpometacarpal | | | | [...] thumb and fingers, unscrew a jar lid, welt wheeler an object, or turn a door handle or a mccallum. You may find yourself dropping things. Weather may also make the thumb sage t. The joint may swell. With time the thumb may become stiff or deformed. Date Last Reviewed: 06/24/201619995011-6158 [employer] [place] [address]. All righ ts reserved. This information is not intended as a substitute for professional medical care. Always follow your healthcare professional's instructions. documented in this encounter Progress Notes Jayce Ya, Kitchen Mechanic - 05/30/2017 8:15 AM PDTVerified name and [...] | | | Jose R E [place] | | | | | | [id number] | | | | | | | | +--------+---------+ + + + | 11/24/ | Office | Cardiology | Flores, | | | 2019 | Visit | | SINDHU Erickson [address] | | | | | | [place], | | | | | | [place] [address] | | | | | | [phone] | | | | | | | | +--------+---------+ + + + documented as of this encounter Visit Diagnoses + + | Diagnosis | + + | Acute pain of right wrist - Primary | + + | Osteoarthritis of first carpometacarpal (CMC) joint of one hand | + + documented in this encounter
--- OUTSIDE RECORDS SUMMARY | ~2019-02-28 | XMS | Encounter Summary ---
Demographics + + + | Address | [address] | | | [place] [address] | + + + | Home Phone [...] Team Providers + +------+ + | Care Brush And Broom Clipper Name | Role | Phone | + [...] + | 06/25/ | Clinical | [facility] | Andriy Weber | Bladder pain | | 2018 | Support | [address] | MD Robert [address] | (Primary Dx) | | | | [place], [place] | [facility] | | | | | [address] | [place] [address] | | | | | [phone] | [phone] | | | | | | | [...] Units Admin Date 06/25/2017 Action Given Dose 62098 Units Route Irrigation Administered By Loraine Hawkins [...] [place] | | | | | | [address] | | | | | | | | +--------+---------+ + + + | 11/24/ | Office | Cardiology | Flores, | | | 2019 | Visit | | SINDHU Erickson [address] | | | | | | [place], | | | | | | [place] [address] | | | | | | [phone] | | | | | | | [...]
--- OUTSIDE RECORDS SUMMARY | ~2019-02-28 | XMS | Encounter Summary ---
Demographics + + + | Address | [address] | | | [place] [address] | + + + | Home Phone [...] Providers + +------+ + | Care Manager Epic Name | Role | Phone | + [...] + | 09/12/ | Telephone | [facility] | Jared Mcdonough, | Appointment | | 2014 | | CARDIOLOGY [address] | [address] [place] | | | | | [place], | [place], | | | | | [place] [address] | [place] [address] | | | | | [phone] | [phone] | | | | | | | [...] [place] | | | | | | [address] | | | | | | | | +--------+---------+ + + + | 11/24/ | Office | Cardiology | Flores, | | | 2019 | Visit | | SINDHU Erickson [address] | | | | | | [place], | | | | | | [place] [address] | | | | | | [phone] | | | | | | | | +--------+---------+ + + + documented as of this encounter Visit Diagnoses Not on filedocumented in this encounter"
--- OUTSIDE RECORDS SUMMARY | ~2019-02-28 | XMS | Encounter Summary ---
Demographics + + + | Address | [address] | | | [place] [address] | + + + | Home Phone [...] Team Providers + +------+ + | Care Consulting Database Administrator Name | Role | Phone | [...] | Pulmonary | MD Mukul | [address] | | | | | emphysema, | [address] | [place], | | | | | unspecified | [address] | [place] [address] | | | | | emphysema | Jose R E | Phone: | | | | | type (HCC) | [place], [place] | [phone] | | | | | Procedures | [address] | Fax: | | | | | CT Chest wo | Phone: | [phone] | | | | | Contrast | [phone] | | | | | | | Fax: | | | | | | | [phone] | | +--------+--------+ + + + + [...] | Pulmonary | MD Mukul | [address] | | | | | emphysema, | [address] | [place], | | | | | unspecified | [address] | [place] [address] | | | | | emphysema | Jose R E | Phone: | | | | | type (HCC) | [place], [place] | [phone] | | | | | Procedures | [address] | Fax: | | | | | CT Chest wo | Phone: | [phone] | | | | | Contrast | [phone] | | | | | | | Fax: | | | | | | | [phone] | | +--------+--------+ + + + + Encounter Details +--------+ + + + + | Date | Type | Department | Care Team | Description | +--------+ + + + + | 03/05/ | Hospital | [facility] | Mukul Clark MD | Pulmonary emphysema, | | 2017 | Encounter | MED CTR CT [address] | [address] | unspecified | | | | [address] [place], | Jose R E [place], [place] | emphysema type (HCC) | | | | [place] [address] | [address] | | | | | [phone] | | | +--------+ + + + [...] | 0 | 10/13/19 | | | Oacorwfveu-CQGI-Mify | mouth as needed. | | | 16 | 7 | | -Cod [id number] MG | | | | | | [...] | | | Jose R E [facility] [place] | | | | | | [address] | | | | | | | | +--------+---------+ + + + | 11/24/ | Office | Cardiology | Flores, | | | 2019 | Visit | | SINDHU Erickson [address] | | | | | | [place], | | | | | | [place] [address] | | | | | | [phone] | | | | | | | [...] emphysema, unspecified emphysema type (HCC). COMPARISON: | [facility] | | 11/16/2013, 02/09/2010. PROTOCOL: Axial images [...] + | [facility] | [address] | [place] | [phone] | | [facility] | | [address] | | | - IMAGING | | | | + + + + + documented in this encounter Visit Diagnoses + + | Diagnosis | + + | Pulmonary emphysema, unspecified emphysema type (HCC) | + + documented in this encounter
--- OUTSIDE RECORDS SUMMARY | ~2019-02-28 | XMS | Encounter Summary ---
Demographics + + + | Address | [address] | | | [place] [address] | + + + | Home Phone [...] Team Providers + +------+ + | Care Winchman/Crane Operator Name | Role | Phone | [...] Telephone | [facility] [place] | Ana aLura Lopez, | Other (CPAP download | | 2012 | | PULMONARY [address] | RN | results ) | | | | [place], | | | | | | [place] [address] | | | | | | [phone] | | | +--------+ + + + [...] [place] | | | | | | [address] | | | | | | | | +--------+---------+ + + + | 11/24/ | Office | Cardiology | Flores, | | | 2019 | Visit | | SINDHU Erickson [address] | | | | | | [place] | | | | | | [place] [address] | | | | | | [phone] | | | | | | | | +--------+---------+ + + + documented as of this encounter Visit Diagnoses Not on filedocumented in this encounter"
--- OUTSIDE RECORDS SUMMARY | ~2019-02-28 | XMS | Encounter Summary ---
Demographics + + + | Address | [address] | | | [place] [address] | + + + | Home Phone [...] Providers + +------+ + | Care Block Cableman Name | Role | Phone | + +------+ + | Juan Cherry DO | PCP | | + +------+ + Encounter Details +--------+ + + + + | Date | Type | Department | Care Team | Description | +--------+ + + + + | 11/05/ | Hospital | [facility] | Shashi Segovia | Pituitary mass (HCC) | | 2013 | Encounter | MED CTR LABORATORY | MD Miryam Need updated | | | | | [address] [place] | address | | | | | [place] | | | | | | [address] | | | | | | [phone] | | | +--------+ + + + [...] [place] | | | | | | [address] | | | | | | | | +--------+---------+ + + + | 11/24/ | Office | Cardiology | Flores, | | | 2019 | Visit | | SINDHU Erickson [address] | | | | | | [place], | | | | | | [place] [address] | | | | | | [phone] | | | | | | | [...] [place] | | | | | | [address] | | | | + + + [...] [address] | [place] [address] | [phone] | + + + + + Insulin-Like [...] | | | | | [place] [address] | | | | + + + [...] [address] | [place] [address] | [phone] | + + + + + Prolactin [...] [place] | | | | | | [address] | | | | + + + [...] 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
--- OUTSIDE RECORDS SUMMARY | ~2019-02-28 | XMS | Encounter Summary ---
Demographics + + + | Address | [address] | | | [place] [address] | + + + | Home Phone [...] Providers + +------+ + | Care Junior Estimator Name | Role | Phone | [...] | | [place] | [facility] | | | | | [address] | [place] [address] | | | | | [phone] | [phone] | | | | | | | [...] [place] | | | | | | [address] | | | | | | | | +--------+---------+ + + + | 11/24/ | Office | Cardiology | Flores, | | | 2019 | Visit | | SINDHU Erickson [address] | | | | | | [place], | | | | | | [place] [address] | | | | | | [phone] | | | | | | | | +--------+---------+ + + + documented as of this encounter Visit Diagnoses Not on filedocumented in this encounter"
--- OUTSIDE RECORDS SUMMARY | ~2019-02-28 | XMS | Encounter Summary ---
Demographics + + + | Address | [address] | | | [place] [address] | + + + | Home Phone [...] Team Providers + +------+ + | Care Addiction Professional Name | Role | Phone | + +------+ + | Juan Cherry DO | PCP | | + +------+ + Encounter Details +--------+ + + + + | Date | Type | Department | Care Team | Description | +--------+ + + + + | 09/09/ | Hospital | [facility] | Conversion | Pain | | 2015 | Encounter | CONVERSION [address] | Transaction, | | | | | [address] | Provider Unknown | | | | | [place], [place] | [phone] | | | | | [address] | | | | | | [phone] | | | +--------+ + + + [...] | | send order to [facility] | | | | | | | [facility]. | | | | | [...] | | | | [place] | | | | | | [address] | | | | | | | | +--------+---------+ + + + | 11/24/ | Office | Cardiology | Flores, | | | 2019 | Visit | | SINDHU Erickson [address] | | | | | | [place], | | | | | | [place] [address] | | | | | | [phone] | | | | | | | [...]
--- OUTSIDE RECORDS SUMMARY | ~2019-02-28 | XMS | Encounter Summary ---
Demographics + + + | Address | [address] | | | [place] [address] | + + + | Home Phone [...] + +------+ + | Care Director Of Litigation Name | Role | Phone | + [...] | | | | | pulmonary | [address] | [address] | | | | | disease, | [place], | [place] | | | | | unspecified | [place] [address] | [place], [place] | | | | | COPD type | Phone: | [address] | | | | | (HCC) | [phone] | Phone: | | | | | Pulmonary | Fax: | [phone] | | | | | emphysema, | [phone] | Fax: | | | | | unspecified | | [phone] | | | | | emphysema | | | | | | | type ([facility]) | | | +--------+ + + + + + Encounter Details +--------+---------+ + + + | Date | Type | Department | Care Team | Description | +--------+---------+ + + + | 05/28/ | Office | [facility] | Jared Mcdonough, | Chronic obstructive | | 2017 | Visit | MED CTR CARDIAC | [address] | pulmonary disease, | | | | REHABILITATION [address] | [address] [place], | unspecified COPD | | | | [address] [place] | [place] [address] | type (HCC) (Primary | | | | [place] [address] | [phone] | Dx); Pulmonary | | | | [phone] | | emphysema, | | | | [...] Desean Chris - 05/28/2016 3:[address] [facility] RE[facility]ILITATION [address] [place] [address] Cardiac Rehab Date: 05/28/2016 Patient Information Patient [...] | | | | [place] | | | | | | [address] | | | | | | | | +--------+---------+ + + + | 11/24/ | Office | Cardiology | Flores, | | | 2019 | Visit | | SINDHU Erickson [address] | | | | | | [place], | | | | | | [place] [address] | | | | | | [phone] | | | | | | | | +--------+---------+ + + + documented as of this encounter Visit Diagnoses + + | Diagnosis | + + | Chronic obstructive pulmonary disease, unspecified COPD type (HCC) - Primary | + + | Pulmonary emphysema, unspecified emphysema type (HCC) | + + documented in this encounter"
--- OUTSIDE RECORDS SUMMARY | ~2019-02-28 | XMS | Encounter Summary ---
Demographics + + + | Address | [address] | | | [place] [address] | + + + | Home Phone [...] Team Providers + +------+ + | Care Reproduction Technician Name | Role | Phone | [...] | Concussion | Aaron Kim MD | Power Saw Mechanic [address] | | | Required | | with brief | [address] | [place] | | | | | loss of | [address] | [place], [place] | | | | | consciousnes | [place], | [address] | | | | | s Word | [place] [address] | Phone: | | | | | finding | Phone: | [phone] | | | | | difficulty | [phone] | Fax: | | | | | [id number] | Fax: | [phone] | | | | | (ICD-10-CM) | [phone] | | | | | | - [...] + + | 08/21/ | Hospital | [facility] | Aaron Rodriguez, | Impaired memory | | 2017 | Encounter | MED CTR SPEECH | MD [address] | (Primary Dx); Word | | | | THERAPY [address] | [place] | finding difficulty | | | | [place], | [address] | | | | | [place] [address] | | | | | | [phone] | Kathi Soto, | | | | [...] | 0 | 10/13/19 | | | Dvqkpyqern-HGMB-Ibgg | mouth as needed. | | | 16 | 7 | | -Cod 09-840-76-30 MG | | | | | | [...] Speech Pathologist - 08/21/2016 2:14 PM PDT [facility] [address] [facility] [address] Speech Therapy Daily Treatment Note Date: 08/21/2016 Patient Information Patient Name: Rosario Malik Date of : 1965 Age: 51 y.o. Encounter Diagnoses Code Name Primary? R41.3 Impaired memory Yes R47.89 Word finding difficulty Date of Onset: 03/15/2016 Referring Provider: Aaron Rodriguez MD Rehab Precautions Flowsheet Row Office Visit from 05/01/2016 in [facility] THERAPY PT OP Rehab Precautions Precautions None Rehab Learning Style Flowsheet Row [facility] ATTENDANT OP EVAL from 05/16/2016 in [facility] SPEECH THERAPY O ffice Visit from 05/01/2016 in [facility] THERAPY PT OP Learning Style Patient's [...] | | | | [place] | | | | | | [id number] | | | | | | | | +--------+---------+ + + + | 11/24/ | Office | Cardiology | [place], | | | 2019 | Visit | | SINDHU Erickson [address] | | | | | | [place], | | | | | | [place] [address] | | | | | | [phone] | | | | | | | [...]
--- OUTSIDE RECORDS SUMMARY | ~2019-02-28 | XMS | Encounter Summary ---
Demographics + + + | Address | [address] | | | [place] [address] | + + + | Home Phone [...] Providers + +------+ + | Care School Speech Language Pathologist Name | Role | Phone | [...] | Concussion | Aaron Kim MD | Superintendent Nonselling [address] | | | Required | | with brief | [address] | [place] | | | | | loss of | [address] | [place], [place] | | | | | consciousnes | [place], | [address] | | | | | s Word | [place] [address] | Phone: | | | | | finding | Phone: | [phone] | | | | | difficulty | [phone] | Fax: | | | | | [id number] | Fax: | [phone] | | | | | (ICD-10-CM) | [phone] | | | | | | - [...] + + | 07/18/ | Hospital | [facility] | Aaron Rodriguez, | Canceled (Illness) | | 2017 | Encounter | MED CTR SPEECH | [address] | | | | | THERAPY [address] | [place] | | | | | [place], | [address] | | | | | [place] [address] | | | | | | [phone] | Cesia Su | | | | | | M, Speech | | | | | | Pathologist [address] | | | | | [address] [place] | | | | | | [place] [address] | | | | | | [phone] | | | | | | | [...] Speech Pathologist - 07/18/2016 [facility] [address] [place] [address] Cancellation/No Show Date: 07/18/2016 Patient Information Patient [...] | | | | | | [place] [address] | | | | | | [phone] | | | | | | | | +--------+---------+ + + + documented as of this encounter Visit Diagnoses Not on filedocumented in this encounter"
--- OUTSIDE RECORDS SUMMARY | ~2019-02-28 | XMS | Encounter Summary ---
Demographics + + + | Address | [address] | | | [place] [address] | + + + | Home Phone [...] Providers + +------+ + | Care Cloth Printing Utility Worker Name | Role | Phone | + +------+ + | Juan Cherry DO | PCP | | + +------+ + Encounter Details +--------+ + + + + | Date | Type | Department | Care Team | Description | +--------+ + + + + | 04/12/ | Hospital | [facility] | Ozzie Hayes | | | 2013 | Encounter | MED CTR EMERGENCY | MD Ran [address] | | | | | HADDAM [address] | [address] [place] | | | | | [place], [place] | [place] [address] | | | | | [address] | [phone] | | | | | [phone] | | | +--------+ + + + [...] | | | | | | [place] [address] | | | | | | [phone] | | | | | | | [...] + | [facility] Diagnostic Imaging | [place] | | Department [address] [place], [place] | [facility] | | [ rep ct [address]] [ rep ct [facility] | | st zip] Signed | - IMAGING | | | | | Patient Name: JADYN SCHMITZ | | | Physician: CHEVY : 1965 Age: 48 Sex: F Unit | | | #: [id number] Exam Date: 04/12/13 Location: | | | ER Report #: [id number] Page: | | | %(RAD)RES..mtdd.print.filter("pg") of %(RAD) | | | RES..mtdd.print.filter("tpg") | | | | | | Accession Number: [id number] | | | PORTABLE CHEST CLINICAL HISTORY: [...] Transcribed | | | Date/Time: 04/12/2013 08:42 Coverage Specialist Rn: | | | <<Signature on File>> | | | | | | Cesar Ren MD04/12/13 0957 <Electronically signed by | | | Cesar Ren MD> Cesar Ren MD 04/12/13 | | | 0732 Coverage Specialist Rn: [employer] Hqduzhnlrpbol79/17/14 0842 | | | Ozzie Hayes MD | | + + + + + + + + | Performing | Address | City/State/Zipcode | Phone Number | | Organization | | | | + + + + + | [facility] | [address] | [place] | [phone] | | [facility] | | [address] | | | - IMAGING | | | | + + + + + documented in this encounter Visit Diagnoses Not on filedocumented in this encounter
--- OUTSIDE RECORDS SUMMARY | ~2019-02-28 | XMS | Encounter Summary ---
Demographics + + + | Address | [address] | | | [place] [address] | + + + | Home Phone [...] Providers + +------+ + | Care Loom Doffer Name | Role | Phone | + [...] MED CTR CARDIAC | MD [address] | unspecified | | | | REHABILITATION [address] | [place], | emphysema type (HCC) | | | | [address] [place] | [place] [address] | (Primary Dx); | | | | [place] [address] | [phone] | Chronic obstructive | | | | [phone] | | pulmonary disease, | | | [...] | | | | | | [place] [address] | | | | | | [phone] | | | | | | | [...]
--- OUTSIDE RECORDS SUMMARY | ~2019-02-28 | XMS | Encounter Summary ---
Demographics + + + | Address | [address] | | | [place] [address] | + + + | Home Phone [...] Team Providers + +------+ + | Care Literacy Specialist Name | Role | Phone | [...] | Concussion | Aaron Kim MD | Childcare Teacher [address] | | | Required | | with brief | [address] | [place] | | | | | loss of | [address] | [place], [place] | | | | | consciousnes | [place], | [address] | | | | | s Word | [place] [address] | Phone: | | | | | finding | Phone: | [phone] | | | | | difficulty | [phone] | Fax: | | | | | S06.0X9A | Fax: | [phone] | | | | | (ICD-10-CM) | [phone] | | | | | | - [...] + + | 06/06/ | Hospital | [facility] | Aaron Rodriguez, | Concussion with | | 2017 | Encounter | MED CTR SPEECH | MD [address] | brief (less than one | | | | THERAPY [address] | [place] | hour) loss of | | | | [place], | [address] | consciousness | | | | [place] [address] | | (Primary Dx) | | | | [phone] | Kathi Soto, | | | | [...] | 0 | 10/13/19 | | | [id number] | mouth as needed. | | | 16 | 7 | | -Cod [id number] MG | | | | | | [...] Speech Pathologist - 06/06/2016 5:52 PM PDT [facility]ERAPY [address] [facility] [address] Speech Therapy Daily Treatment Note Date: 06/06/2016 Patient Information Patient Name: Rosario Malik Date of : 1965 Age: 51 y.o. Encounter Diagnoses Code Name Primary? S06.0X9A Concussion with brief (less than one hour) loss of consciousness Yes Date of Onset: 03/15/2016 Referring Provider: Aaron Rodriguez MD Rehab Precautions Office Visit from 05/01/2016 in [facility] THERAPY PT OP Rehab Precautions Precautions None Rehab Learning Style WSM INSPECTOR MECHANICAL OP EVAL from 05/16/2016 in [facility] SPEECH THERAPY Office V isit from 05/01/2016 in [facility] THERAPY PT OP Learning Style Patient's [...] | | | | [place] | | | | | | [address] | | | | | | | | +--------+---------+ + + + | 11/24/ | Office | Cardiology | [place], | | | 2020 | Visit | | SINDHU Erickson [address] | | | | | | [place], | | | | | | [place] [address] | | | | | | [phone] | | | | | | | [...]
--- OUTSIDE RECORDS SUMMARY | ~2019-02-28 | XMS | Encounter Summary ---
Demographics + + + | Address | [address] | | | [place] [address] | + + + | Home Phone [...] Providers + +------+ + | Care Semiconductor Packages Tester Name | Role | Phone | + +------+ + | Juan Cherry DO | PCP | | + +------+ + Encounter Details +--------+ + + + + | Date | Type | Department | Care Team | Description | +--------+ + + + + | 09/09/ | Hospital | [facility] | Conversion | Pain | | 2015 | Encounter | CONVERSION [address] | Transaction, | | | | | [address] | Provider Unknown | | | | | [place], [place] | [phone] | | | | | [address] | | | | | | [phone] | | | +--------+ + + + [...] | | | | [place] | | | | | | [address] | | | | | | | | +--------+---------+ + + + | 11/24/ | Office | Cardiology | [place], | | | 2019 | Visit | | SINDHU Erickson [address] | | | | | | [place], | | | | | | [place] [address] | | | | | | [phone] | | | | | | | [...]
--- OUTSIDE RECORDS SUMMARY | ~2019-02-28 | XMS | Encounter Summary ---
Demographics + + + | Address | [address] | | | [place] [address] | + + + | Home Phone [...] Providers + +------+ + | Care Industrial Photographer Name | Role | Phone | [...] + + | 05/19/ | Office | [facility] | Brian Miranda | Sprain of chest wall | | 2013 | Visit | MED CTR THERAPY PT | MD [address] | (Primary Dx) | | | | OP [address] | [facility] | | | | | [address] | [place] [address] | | | | | [address] | [phone] | | | | | [phone] | | | | | | | Janey Low, | | | | | | LACEMAKER [address] | | | | | | [place] [facility] [place] | | | | | | [address] | | | | | | [phone] | | | | | | | [...] of this encounter Progress Notes Janey Low, LACEMAKER - 05/19/2013 1:38 PM PDTFormatting of this note might be different f rom the original. [facility] CTR THERAPY PT OP [address] [place] [address] Physical Therapy Daily Treatment Note Date: 05/19/2013 [...] [place] | | | | | | [address] | | | | | | | | +--------+---------+ + + + | 11/24/ | Office | Cardiology | [place], | | | 2020 | Visit | | SINDHU Erickson [address] | | | | | | [place], | | | | | | [place] [address] | | | | | | [phone] | | | | | | | | +--------+---------+ + + + documented as of this encounter Visit Diagnoses + + | Diagnosis | + + | Sprain of chest wall - Primary Other specified sites of sprains and strains | + + documented in this encounter
--- OUTSIDE RECORDS SUMMARY | ~2019-02-28 | XMS | Encounter Summary ---
Demographics + + + | Address | [address] | | | [place] [address] | + + + | Home Phone [...] Team Providers + +------+ + | Care Washer And Crusher Tender Name | Role | Phone | + +------+ + PCP | Unavailable | + +------+ + Encounter Details +--------+ + + + + | Date | Type | Department | Care Team | Description | +--------+ + + + + | 09/22/ | Hospital | [facility] | Rocky Rodriguez | | | 2008 | Encounter | MED CTR EMERGENCY | MD Kyler [address] | | | | | CENTER [address] | [address] [facility] | | | | | [place], [place] | [place] [address] | | | | | [address] | [phone] | | | | | [phone] | | | +--------+ + + + [...] [place] | | | | | | [address] | | | | | | | | +--------+---------+ + + + | 11/24/ | Office | Cardiology | [place], | | | 2019 | Visit | | SINDHU Erickson [address] | | | | | | [place] | | | | | | [place] [address] | | | | | | [phone] | | | | | | | | +--------+---------+ + + + documented as of this encounter Visit Diagnoses Not on filedocumented in this encounter"
--- OUTSIDE RECORDS SUMMARY | ~2019-02-28 | XMS | Encounter Summary ---
Demographics + + + | Address | [address] | | | [place] [address] | + + + | Home Phone [...] Providers + +------+ + | Care Order Administrator Name | Role | Phone | [...] on | MED CTR THERAPY PT | GAS WELDER [address] | | | | | OP [address] | [place], [place] | | | | | [place], [place] | [address] | | | | | [address] | [phone] | | | | | [phone] | | | +--------+ + + + [...] of this encounter Progress Notes Janey Low, GAS WELDER - 05/18/2013 9:14 [facility] OP [address] [place] [address] Cancellation/No Show Date: 05/18/2013 Patient Information Patient [...] | | | | | | [place] [address] | | | | | | [phone] | | | | | | | | +--------+---------+ + + + documented as of this encounter Visit Diagnoses Not on filedocumented in this encounter"
--- OUTSIDE RECORDS SUMMARY | ~2019-02-28 | XMS | Encounter Summary ---
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 I reviewed the notes from Dr Chris Alarcon in [place], [place].It indicates that patient had CPAP intolerance [...] day f or her COPD through her cottage master. We performed a CPAP titration study on [...] spen t below SpO2 of 90% was0%.Transcutaneous DK0bksccg 35-37mmHg during supine wake, and remained between [...] Historical Provider, Yinka Witt Respiratory Therapy Supplies [facility] Please provide patient with necessary CPAP supplies (she did not specify, okay to send order as appropriate) Diagnosis Code(s)327.23 . Length of Need 99 months. Please send order to [facility]. 01/13/13 Yes Loreta London MD Respiratory Therapy Supplies [facility] Change CPAP back to 11-14 cm H2O. All necessary supplies. No oxygen bleed in. Diagnosis Code(s)327.23. Length of Need: Lifetime. Please send order to [facility]. This is not [...] her awakenings at night, I will ask [place] to check her machine for adjusting humidity [...] this chart may have been created with Force-A voice recognition software. Occasi onal wrong-word or [...] | | | | [place] | | | | | | [address] | | | | | | | | +--------+---------+ + + + | 11/24/ | Office | Cardiology | [place], | | | 2019 | Visit | | SINDHU Erickson [address] | | | | | | [place], | | | | | | [place] [address] | | | | | | [phone] | | | | | | | [...]
--- OUTSIDE RECORDS SUMMARY | ~2019-02-28 | XMS | Encounter Summary ---
Demographics + + + | Address | [address] | | | [place] [address] | + + + | Home Phone [...] Providers + +------+ + | Care Machine Pecan Picker Name | Role | Phone | [...] | 05/13/ | Office | [facility] | Andriy Weber | Pyuria (Primary Dx); | | 2017 | Visit | [address] | MD [address] | Interstitial | | | | [place] | [address] | cystitis | | | | [address] | [place] [address] | | | | | [phone] | [phone] | | | | | | | [...] a past medical history of Adrenal insufficiency ([facility]); Anxiety; Asthma; 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 She takes this da riogberto Respiratory Therapy Supplies [facility] [...] of instillation, we can use a 20 Mauritian catheter to determine urethral patency. I suggested [...] t is made to edit the content, packaging technician errors may occur. Occasional wrong- word or [...] | | | | [place], [place] | | | | | | [address] | | | | | | | | +--------+---------+ + + + | 11/24/ | Office | Cardiology | [place], | | | 2019 | Visit | | SINDHU Erickson [address] | | | | | | [place], | | | | | | [place] [address] | | | | | | [phone] | | | | | | | [...] 1.001 - 1.030 | | | | [place], | | | | | | [facility]A, [...] [address] | [place] | [phone] | | [facility] | | [address] | | | - LABORATORY | | [...]
--- OUTSIDE RECORDS SUMMARY | ~2019-02-28 | XMS | Encounter Summary ---
Demographics + + + | Address | [address] | | | [place] [address] | + + + | Home Phone [...] Providers + +------+ + | Care Hand Mica Plate Layer Name | Role | Phone | [...] + + | 04/27/ | Office | [facility] | Offenstein, | COPD (chronic | | 2013 | Visit | PULMONARY [address] | Loreta Alonso MD | obstructive | | | | [place], | | pulmonary disease) | | | | [place] [address] | | (Primary Dx); [place] | | | | [phone] | | (obstructive sleep | | | [...] Care [facility] [address] [place], [address] HPI Rosario Malik is a 48 y.o. 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 documented [...] | | | | [place] | | | | | | [address] | | | | | | | | +--------+---------+ + + + | 11/24/ | Office | Cardiology | [place], | | | 2019 | Visit | | SINDHU Erickson [address] | | | | | | [place], | | | | | | [place] [address] | | | | | | [phone] | | | | | | | [...]
--- OUTSIDE RECORDS SUMMARY | ~2019-02-28 | XMS | Encounter Summary ---
Demographics + + + | Address | [address] | | | [place] [address] | + + + | Home Phone [...] Team Providers + +------+ + | Care Bed Setter Name | Role | Phone | [...] + + | 01/24/ | Telephone | [facility] | Jared Mcdonough, | Other (prescription | | 2013 | | CARDIOLOGY [address] | MD [address] | clarification) | | | | [place], | [place], | | | | | [place] [address] | [place] [address] | | | | | [phone] | [phone] | | | | | | | [...] [place] | | | | | | [address] | | | | | | | | +--------+---------+ + + + | 11/24/ | Office | Cardiology | [place], | | | 2020 | Visit | | SINDHU Erickson [address] | | | | | | [place], | | | | | | [place] [address] | | | | | | [phone] | | | | | | | | +--------+---------+ + + + documented as of this encounter Visit Diagnoses Not on filedocumented in this encounter"
--- OUTSIDE RECORDS SUMMARY | ~2019-02-28 | XMS | Encounter Summary ---
Demographics + + + | Address | [address] | | | [place] [address] | + + + | Home Phone [...] Team Providers + +------+ + | Care Flake Or Shred Roll Operator Name | Role | Phone | [...] | | | | CENTER [address] | | carried out because | | | | [place] | | of patient's | | | | [address] | | decision (Primary | | | | [phone] | | Dx) | +--------+ + + [...] | | | | | | [place] [address] | | | | | | [phone] | | | | | | | [...] -------- | | | ---- 08/22/2013 18:46 [place] | | | [facility] Emergency COPD Exacerbation; | | | 08/13/2013 20:38 [facility] | | | Emergency Shortness of Breath; | | | | | | COPD Exasperation; | | | | | | Obstructive chronic bronchitis with (acute) exacerbation; 07/18/2013 | | | 12:06 [facility] Emergency Arm | | | Laceration; | | | Open wound of upper | | | arm, without mention of complication; | | | | | | cut on Lft arm; 07/14/2013 00:15 [facility] | | | [facility] Emergency Shortness of Breath; | | | | | | Chronic obstructive asthma with (acute) | | | exacerbation; 06/19/2013 21:06 [facility] | | | [place] [facility] Obstructive chronic bronchitis with (acute) | | | exacerbation; | | | Shortness of | | | Breath; | | | diff breathing; | | | 06/19/2013 11:03 [facility] | | | Emergency COPD exasperation; 05/23/2013 19:52 [place] | | | [facility] Emergency Obstructive chronic | | | bronchitis with (acute) exacerbation; | | | | | | Obstructive chronic bronchitis with (acute) exacerbation; | | | | | | sob; | | | | | | Shortness of Breath; VISIT COUNT (1 YR.) Visits | | | Medicaid NE Dx Location ------ | | | --------- 13 0 [facility] | | | [facility] 13 0 Total | | | Note: Visits indicate total known visits. Medicaid NE Dx are the | | | number of primary diagnoses on the [facility]'s non-emergent dx list. | | [...]
--- OUTSIDE RECORDS SUMMARY | ~2019-02-28 | XMS | Encounter Summary ---
Demographics + + + | Address | [address] | | | [place] [address] | + + + | Home Phone [...] Providers + +------+ + | Care Head Animal Keeper Name | Role | Phone | [...] | | | | [place] | [phone] | | | | | [address] | | | | | | [phone] | | | +--------+ + + + [...] | | | | | [facility]. | | | | | [...] [place] | | | | | | [address] | | | | | | | | +--------+---------+ + + + | 11/24/ | Office | Cardiology | [place], | | | 2019 | Visit | | SINDHU Erickson [address] | | | | | | [place], | | | | | | [place] [address] | | | | | | [phone] | | | | | | | [...]
--- OUTSIDE RECORDS SUMMARY | ~2019-02-28 | XMS | Encounter Summary ---
Demographics + + + | Address | [address] | | | [place] [address] | + + + | Home Phone [...] Team Providers + +------+ + | Care Monogram And Letter Paster Name | Role | Phone | + [...] | cystitis (Primary | | | | [place], [place] | [address] [place] | Dx) | | | | [address] | [place] [address] | | | | | [phone] | [phone] | | | | | | | [...] [place] | | | | | | [address] | | | | | | | | +--------+---------+ + + + | 11/24/ | Office | Cardiology | [place], | | | 2019 | Visit | | SINDHU Erickson [address] | | | | | | [place], | | | | | | [place] [address] | | | | | | [phone] | | | | | | | | +--------+---------+ + + + documented as of this encounter Visit Diagnoses + + | Diagnosis | + + | Interstitial cystitis - Primary Chronic interstitial cystitis | + + documented in this encounter"
--- OUTSIDE RECORDS SUMMARY | ~2019-02-28 | XMS | Encounter Summary ---
Demographics + + + | Address | [address] | | | [place] [address] | + + + | Home Phone [...] Providers + +------+ + | Care Sample Tailor Name | Role | Phone | + [...] + + | 11/20/ | Office | [facility] | Dre Gibson MD | Diverticulitis | | 2013 | Visit | CARE [address] | [address] | (Primary Dx); | | | | [place] | [place] | Abdominal pain | | | | [address] | [address] | | | | | [phone] | | | +--------+---------+ + + + [...] color of the stools) Unexpected vaginal bleeding 4804[address] [place] [address]. All rights reserve d. This information is [...] | | | | [place], [place] | | | | | | [address] | | | | | | | | +--------+---------+ + + + | 11/24/ | Office | Cardiology | [place], | | | 2019 | Visit | | SINDHU Erickson [address] | | | | | | [place], | | | | | | [place] [address] | | | | | | [phone] | | | | | | | [...] | 1.010 | | | | | [place], | | | | | | [facility], [...]
--- OUTSIDE RECORDS SUMMARY | ~2019-02-28 | XMS | Encounter Summary ---
Demographics + + + | Address | [address] | | | [place] [address] | + + + | Home Phone [...] Providers + +------+ + | Care Supervisor Varnish Name | Role | Phone | + [...] + + | 12/23/ | Office | [facility] | [place], | Palpitations; | | 2019 | Visit | CARDIOLOGY [address] | SINDHU Erickson [address] | Paroxysmal atrial | | | | [place], | [place], | tachycardia (HCC); | | | | [place] [address] | [place] [address] | Pericarditis, | | | | [phone] | [phone] | unspecified | | | | | [...] mg by mouth Daily. Respiratory Therapy Supplies [facility] Please provide patient with necessary CPAP supplies ( she did not specify, okay to send order as appropriate) Diagnosis Code(s)327.23 . Length of Need 99 months. Please send order to [facility]. 1 each 0 Respiratory Therapy Supplies [facility] Change CPAP back to 11-14 cm H2O. All necessary suppl ies. No oxygen bleed in. Diagnosis Code(s)327.23. Length of Need: Lifetime. Please send orde r to [facility]. This is not a new [...] the HPI RESULTS- I reviewed reports from [facility]: Above data and testing is reviewed this [...] She is in class I of the [place] Heart As sociation functional class. 2. Hypotensionsecondary [...] done prior by another provider. Lizy Vásquez, Technical Analyst am acting as a scribe on behalf of, and in the presenc e of SINDHU Vang. - Lizy Nieto Technical Analyst 12/23/2018 14:27 I, SINDHU Vang, personally performed the services described in this documentati on, as scribed in my presence and it is both accurate and complete. -SINDHU Vang 12/23/2018 Portions of this chart may have been created with 23press voice recognition software. Occasi onal wrong-word or [...] [place] | | | | | | [address] | | | | | | | | +--------+---------+ + + + | 11/24/ | Office | Cardiology | [place], | | | 2019 | Visit | | SINDHU Erickson [address] | | | | | | [place], | | | | | | [place] [address] | | | | | | [phone] | | | | | | | [...] MD | | | | | | ([id number]) on 12/23/2018 | | | | | [...]
--- OUTSIDE RECORDS SUMMARY | ~2019-02-28 | XMS | Encounter Summary ---
Demographics + + + | Address | [address] | | | [place] [address] | + + + | Home Phone [...] Providers + +------+ + | Care Care Provider Name | Role | Phone [...] Alonso MD | | | | | [place], | | | | | | [place] [address] | | | | | | [phone] | | | +--------+--------+ + + + [...] [place] | | | | | | [address] | | | | | | | | +--------+---------+ + + + | 11/24/ | Office | Cardiology | [place], | | | 2019 | Visit | | SINDHU Erickson [address] | | | | | | [place], | | | | | | [place] [address] | | | | | | [phone] | | | | | | | | +--------+---------+ + + + documented as of this encounter Visit Diagnoses Not on filedocumented in this encounter"
--- OUTSIDE RECORDS SUMMARY | ~2019-02-28 | XMS | Encounter Summary ---
Demographics + + + | Address | [address] | | | [place] [address] | + + + | Home Phone [...] + +------+ + | Care Life Skills Teacher Name | Role | Phone | [...] + + | 12/23/ | Office | [facility] | [place], | Palpitations; | | 2019 | Visit | CARDIOLOGY [address] | SINDHU Erickson [address] | Paroxysmal atrial | | | | [place], | [place], | tachycardia (HCC); | | | | [place] [address] | [place] [address] | Pericarditis, | | | | [phone] | [phone] | unspecified | | | | | [...] mg by mouth Daily. Respiratory Therapy Supplies [facility] Please provide patient with necessary CPAP supplies ( she did not specify, okay to send order as appropriate) Diagnosis Code(s)327.23 . Length of Need 99 months. Please send order to [facility]. 1 each 0 Respiratory Therapy Supplies [facility] Change CPAP back to 11-14 cm H2O. All necessary suppl ies. No oxygen bleed in. Diagnosis Code(s)327.23. Length of Need: Lifetime. Please send orde r to [facility]. This is not a new [...] RESULTS reviewed during visit today primarily from [facility]: LIPID Lab Results Component Value Date CHOLHDL [...] the HPI RESULTS- I reviewed reports from [facility]: Above data and testing is reviewed this [...] v entricular function done at the [facility]. LVEF 78%. C. Holter Monitor 08/16/13 [...] She is in class I of the [place] Heart As sociation functional class. 2. Hypotensionsecondary [...] was seen at the ED of [facility] 3 weeks ago and again 1 [...] done prior by another provider. Lizy Vásquez, House Decorator am acting as a scribe on behalf of, and in the presenc e of SINDHU Vang. - Lizy Nieto House Decorator 12/23/2018 14:27 I, SINDHU Vang, personally performed the services described in this documentati on, as scribed in my presence and it is both accurate and complete. -SINDHU Vang 12/23/2018 Portions of this chart may have been created with Dash[employer] voice recognition software. Occasi onal wrong-word or [...] [place] | | | | | | [address] | | | | | | | | +--------+---------+ + + + | 11/24/ | Office | Cardiology | [place], | | | 2019 | Visit | | SINDHU Erickson [address] | | | | | | [place], | | | | | | [place] [address] | | | | | | [phone] | | | | | | | [...] MD | | | | | | ([id number]) on 12/23/2018 | | | | | [...]
--- OUTSIDE RECORDS SUMMARY | ~2019-02-28 | XMS | Encounter Summary ---
Demographics + + + | Address | [address] | | | [place] [address] | + + + | Home Phone [...] Providers + +------+ + | Care Senior Tax Analyst Name | Role | Phone | [...] | RN | | | | | [place], | | | | | | [place] [address] | | | | | | [phone] | | | +--------+ + + + [...] [place] | | | | | | [address] | | | | | | | | +--------+---------+ + + + | 11/24/ | Office | Cardiology | [place], | | | 2020 | Visit | | SINDHU Erickson [address] | | | | | | [place], | | | | | | [place] [address] | | | | | | [phone] | | | | | | | | +--------+---------+ + + + documented as of this encounter Visit Diagnoses Not on filedocumented in this encounter"
--- OUTSIDE RECORDS SUMMARY | ~2019-02-28 | XMS | Encounter Summary ---
Demographics + + + | Address | [address] | | | [place] [address] | + + + | Home Phone [...] | RN | | | | | [place], | | | | | | [place] [address] | | | | | | [phone] | | | +--------+ + + + [...] | | | | [place] | | | | | | [address] | | | | | | | | +--------+---------+ + + + | 11/24/ | Office | Cardiology | [place], | | | 2019 | Visit | | SINDHU Erickson [address] | | | | | | [place], | | | | | | [place] [address] | | | | | | [phone] | | | | | | | | +--------+---------+ + + + documented as of this encounter Visit Diagnoses Not on filedocumented in this encounter"
--- OUTSIDE RECORDS SUMMARY | ~2019-02-28 | XMS | Encounter Summary ---
Demographics + + + | Address | [address] | | | [place] [address] | + + + | Home Phone [...] Providers + +------+ + | Care Farm Field Manager Name | Role | Phone | [...] MD | oximetry) | | | | [place], | | | | | | [place] [address] | | | | | | [phone] | | | +--------+ + + + [...] | | | | | | [place] [address] | | | | | | [phone] | | | | | | | [...]
--- OUTSIDE RECORDS SUMMARY | ~2019-02-28 | XMS | Encounter Summary ---
Demographics + + + | Address | [address] | | | [place] [address] | + + + | Home Phone [...] Providers + +------+ + | Care Corporate Ethics Officer Name | Role | Phone | [...] [address] | | | | | [place], | [place] | | | | | [place] [address] | [address] | | | | | [phone] | | | +--------+--------+ + + + [...] | | | | | | [place] [address] | | | | | | [phone] | | | | | | | | +--------+---------+ + + + documented as of this encounter Visit Diagnoses Not on filedocumented in this encounter"
--- OUTSIDE RECORDS SUMMARY | ~2019-02-28 | XMS | Encounter Summary ---
Demographics + + + | Address | [address] | | | [place] [address] | + + + | Home Phone [...] Providers + +------+ + | Care Licensed Reactor Operator Name | Role | Phone | + +------+ + PCP | Unavailable | + +------+ + Encounter Details +--------+ + + + + | Date | Type | Department | Care Team | Description | +--------+ + + + + | 03/04/ | Hospital | [facility] | Jason Carvajal, | | | 2010 - | Encounter | MED CTR MED ONC | [address] | | | | | [address] [place] | [address] [place] | | | 03/06/ | | [place] [address] | [address] | | | 2010 | | [phone] | | | +--------+ + + + [...] [place] | | | | | | [address] | | | | | | | | +--------+---------+ + + + | 11/24/ | Office | Cardiology | [place], | | | 2019 | Visit | | SINDHU Erickson [address] | | | | | | [place], | | | | | | [place] [address] | | | | | | [phone] | | | | | | | | +--------+---------+ + + + documented as of this encounter Visit Diagnoses Not on filedocumented in this encounter"
--- OUTSIDE RECORDS SUMMARY | ~2019-02-28 | XMS | Encounter Summary ---
Demographics + + + | Address | [address] | | | [place] [address] | + + + | Home Phone [...] + + | 09/13/ | Emergency | [facility] | Alexi Guaman, | Tachycardia (Primary | | 2018 | | MED CTR EMERGENCY | MD [address] | Dx); Hypokalemia | | | | CENTER [address] | [place] | | | | | [place] | [address] | | | | | [address] | | | | | | [phone] | | | +--------+ + + + [...] sent through Care Everywhere.Hypokalemia (En glish)Tachycardia, Understanding (Lao)documented in this encounter Medications at Time of [...] | | | | | | [place] [address] | | | | | | [phone] | | | | | | | [...] W?MRN: | | | | | | [id number] | | | [id number] | | | his | | | [...] [address] | [place] | [phone] | | [facility] | | [address] | | | - LABORATORY | | [...] | | | | | | [employer] | | | | | [...] [address] | [place] | [phone] | | [facility] | | [address] | | | - LABORATORY | | [...] (L) | 7 - 18 mg/dL | [facility] | | | | | | [facility] | | | | | | MEDICAL | | | | | | CENTER - | | | | | | LABORATORY | | + + + + + + | Creatinine | 0.77 | 0.60 - 1.30 | [facility] | | | | | mg/dL | [facility] | | | | | | MEDICAL | | | | | | CENTER - | | | | | | LABORATORY | | + + + + + + | eGFR if not | >60Comment: GLOMERULAR | >=60 | [facility] | | | | FILTRATION | mL/min/1.73m2 | [facility] | | | [place]ER | RATE,ESTIMATED | | MEDICAL | | | | mL/min/1.75c1Flyt than | | CENTER - | | [...] + | [facility] | [address] | [place] | [phone] | | [facility] | | [address] | | | - LABORATORY | | [...] + | [facility] | [address] | [place] | [phone] | | [facility] | | [address] | | | - LABORATORY | | [...] short | | | | | | [place] though P waves are | | | [...] | | | | RAFA WELLS MD ([id number]) | | | | | | on [...]
--- OUTSIDE RECORDS SUMMARY | ~2019-02-28 | XMS | Encounter Summary ---
Demographics + + + | Address | [address] | | | [place] [address] | + + + | Home Phone [...] Providers + +------+ + | Care Record Changer Assembler Name | Role | Phone | [...] + + | 01/20/ | Emergency | [facility] | Nestor Martinez, | COPD exacerbation | | 2013 - | | MED CTR EMERGENCY | MD [address] | ([facility]) (Primary Dx) | | | | [place] [address] | [place], [place] | | | 01/21/ | | [place], [place] | [address] | | | 2013 | | [address] | | | | | | [phone] | | | +--------+ + + + [...] sent through Care Everywhere.ED COPD FLARE ( SAMOAN)documented in this encounter Medications at Time of [...] | | | | | | | [facility]. | | | | | [...] [place] | | | | | | [address] | | | | | | | | +--------+---------+ + + + | 11/24/ | Office | Cardiology | [place], | | | 2019 | Visit | | SINDHU Erickson [address] | | | | | | [place], | | | | | | [place] [address] | | | | | | [phone] | | | | | | | [...] + | MISCELLANEOUS LAB | | | [phone] | + +---------+ + + | MISCELANIOUS LAB | | | [phone] | + +---------+ + + documented in [...]
--- OUTSIDE RECORDS SUMMARY | ~2019-02-28 | XMS | Encounter Summary ---
Demographics + + + | Address | [address] | | | [place] [address] | + + + | Home Phone [...] Team Providers + +------+ + | Care Hatchery Supervisor Name | Role | Phone | + +------+ + | Juan Cherry DO | PCP | | + +------+ + Encounter Details +--------+ + + + + | Date | Type | Department | Care Team | Description | +--------+ + + + + | 08/05/ | Hospital | [facility] | Kevin Sandoval, | Chronic airway | | 2013 | Encounter | MED CTR PULMONARY | MD [address] | obstruction, not | | | | FUNCTION [address] | [place], [place] | elsewhere classified | | | | [place], | [address] | (HCC) | | | | [place] [address] | | | | | | [phone] | | | +--------+ + + + [...] | | | | | order to [facility]. | | | | | [...] | | | | | | | [facility]. | | | | [...] [place] | | | | | | [address] | | | | | | | | +--------+---------+ + + + | 11/24/ | Office | Cardiology | [place], | | | 2019 | Visit | | SINDHU Erickson [address] | | | | | | [place], | | | | | | [place] [address] | | | | | | [phone] | | | | | | | [...] classified | | | | | | ([facility]) | | + +--------+ + + + documented in this encounter Visit Diagnoses + + | Diagnosis | + + | Chronic airway obstruction, not elsewhere classified | + + documented in this encounter"
--- OUTSIDE RECORDS SUMMARY | ~2019-02-28 | XMS | Encounter Summary ---
Demographics + + + | Address | [address] | | | [place] [address] | + + + | Home Phone [...] Providers + +------+ + | Care Manufacturing Sales Representative Name | Role | Phone [...] + + | 05/28/ | Office | [facility] | Brian Miranda | Sprain of chest | | 2013 | Visit | [facility] | MD [address] | abigail garcia | | | | [address] | [address] [facility] | encounter (Primary | | | | [address] [facility] | [place] [address] | Dx); Place of | | | | [place], [place] | [phone] | occurrence, | | | | [address] | | industrial places | | | | [phone] | | and premises | +--------+---------+ + [...] - 05/28/2013 8:40 AM PDTClaim number: [id number] Date of injury: 04/05/2013 Employer: [employer] [...] signs as recor ded by the medical practice administrator was a blood pressure of 82/60 and [...] [place] | | | | | | [id number] | | | | | | | | +--------+---------+ + + + | 11/24/ | Office | Cardiology | [place], | | | 2019 | Visit | | SINDHU Erickson [address] | | | | | | [place] | | | | | | [place] [address] | | | | | | [phone] | | | | | | | | +--------+---------+ + + + documented as of this encounter Visit Diagnoses + + | Diagnosis | + + | Sprain of chest wall, subsequent encounter - Primary | + + | Place of occurrence, industrial places and premises | + + documented in this encounter
--- OUTSIDE RECORDS SUMMARY | ~2019-02-28 | XMS | Encounter Summary ---
Demographics + + + | Address | [address] | | | [place] [address] | + + + | Home Phone [...] Providers + +------+ + | Care Cnc Machine Programmer Name | Role | Phone | + +------+ + PCP | Unavailable | + +------+ + Encounter Details +--------+ + + + + | Date | Type | Department | Care Team | Description | +--------+ + + + + | 05/30/ | [facility] | [facility] | | | | 2009 - | Encounter | MED CTR OP REHAB | | | | | | [address] | | | | 06/23/ | | [place] [address] | | | | 2009 | | [phone] | | | +--------+ + + + [...] [place] | | | | | | [address] | | | | | | | | +--------+---------+ + + + | 11/24/ | Office | Cardiology | [place], | | | 2020 | Visit | | SINDHU Erickson [address] | | | | | | [place], | | | | | | [place] [address] | | | | | | [phone] | | | | | | | | +--------+---------+ + + + documented as of this encounter Visit Diagnoses Not on filedocumented in this encounter"
--- OUTSIDE RECORDS SUMMARY | ~2019-02-28 | XMS | Encounter Summary ---
Demographics + + + | Address | [address] | | | [place] [address] | + + + | Home Phone [...] Providers + +------+ + | Care Bulb Brander Name | Role | Phone | + [...] | | | | [facility] | [address] | [address] | | | | | EXERCISE | [place], | [place] | | | | | | [place] [address] | [place], [place] | | | | | | Phone: | [address] | | | | | | [phone] | Phone: | | | | | | Fax: | [phone] | | | | | | [phone] | Fax: | | | | | | | [phone] | +--------+--------+ + + + + Encounter Details +--------+---------+ + + + | Date | Type | Department | Care Team | Description | +--------+---------+ + + + | 07/02/ | Office | [facility] | Jared Mcdonough, | Chronic obstructive | | 2017 | Visit | MED CTR CARDIAC | MD [address] | pulmonary disease, | | | | REHABILITATION [address] [place], | unspecified COPD | | | | [address] [place] [place] | [place] [address] | type (HCC) (Primary | | | | [place] [address] | [phone] | Dx); Mild persistent | | | | [phone] | | asthma without | | | [...] [place] | | | | | | [address] | | | | | | | | +--------+---------+ + + + | 11/24/ | Office | Cardiology | [place], | | | 2019 | Visit | | SINDHU Erickson [address] | | | | | | [place], | | | | | | [place] [address] | | | | | | [phone] | | | | | | | | +--------+---------+ + + + documented as of this encounter Visit Diagnoses + + | Diagnosis | + + | Chronic obstructive pulmonary disease, unspecified COPD type (HCC) - Primary | + + | Mild persistent asthma without complication Unspecified asthma | + + documented in this encounter"
--- OUTSIDE RECORDS SUMMARY | ~2019-02-28 | XMS | Encounter Summary ---
Demographics + + + | Address | [address] | | | [place] [address] | + + + | Home Phone [...] Team Providers + +------+ + | Care Print Designer Name | Role | Phone | [...] | | | | | pulmonary | [address] | [address] | | | | | disease, | [place], | [place] | | | | | unspecified | [place] [address] | [place], [place] | | | | | COPD type | Phone: | [address] | | | | | (HCC) | [phone] | Phone: | | | | | Pulmonary | Fax: | [phone] | | | | | emphysema, | [phone] | Fax: | | | | | unspecified | | [phone] | | | | | emphysema | | | | | | | type ([facility]) | | | +--------+ + + + + + Encounter Details +--------+---------+ + + + | Date | Type | Department | Care Team | Description | +--------+---------+ + + + | 05/21/ | Office | [facility] | Sharonda Delmycaitie, | Chronic obstructive | | 2017 | Visit | MED CTR CARDIAC | [address] | pulmonary disease, | | | | REHABILITATION [address] | [address] [place], | unspecified COPD | | | | [address] [place] | [place] [address] | type (HCC) (Primary | | | | [place] [address] | [phone] | Dx) | | | | [phone] | | | +--------+---------+ + + + [...] as of this encounter Progress Tricia Rahman, CARDIOLOGY NURSE - 05/21/2016 10:37 AM PDT [facility] CARDIAC REHABILITATION [address] [place] [address] Cardiac Rehab Date: 05/21/2016 Patient Information Patient [...] | | | | [place] | | | | | | [address] | | | | | | | | +--------+---------+ + + + | 11/24/ | Office | Cardiology | Metter, | | | 2019 | Visit | | GeorginaSINDHU reynoso [address] | | | | | | [place], | | | | | | [place] [address] | | | | | | [phone] | | | | | | | | +--------+---------+ + + + documented as of this encounter Visit Diagnoses + + | Diagnosis | + + | Chronic obstructive pulmonary disease, unspecified COPD type (HCC) - Primary | + + documented in this encounter"
--- OUTSIDE RECORDS SUMMARY | ~2019-02-28 | XMS | Encounter Summary ---
Demographics + + + | Address | [address] | | | [place] [address] | + + + | Home Phone [...] Providers + +------+ + | Care Decal Cutter Name | Role | Phone | [...] | apnea (adult) | | | | [place], | | (pediatric) ([place] | | | | [place] [address] | | Dx) | | | | [phone] | | | +--------+ + + + [...] [place] | | | | | | [address] | | | | | | | | +--------+---------+ + + + | 11/24/ | Office | Cardiology | [place], | | | 2019 | Visit | | SINDHU Erickson [address] | | | | | | [place], | | | | | | [place] [address] | | | | | | [phone] | | | | | | | | +--------+---------+ + + + documented as of this encounter Visit Diagnoses + + | Diagnosis | + + | Obstructive sleep apnea (adult) (pediatric) - Primary | + + documented in this encounter"
--- OUTSIDE RECORDS SUMMARY | ~2019-02-28 | XMS | Encounter Summary ---
Demographics + + + | Address | [address] | | | [place] [address] | + + + | Home Phone [...] Team Providers + +------+ + | Care Waiter/Waitress Buffet Name | Role | Phone | + [...] + + | 05/23/ | Emergency | [facility] | Heriberto, | COPD with acute | | 2013 | | MED CTR EMERGENCY | Ozzy Kim MD [address] | exacerbation (HCC) | | | | [place] [address] [place] | [facility] | (Primary Dx); COPD | | | | [place], [place] | [place] [address] | exacerbation (HCC) | | | | [address] | [phone] | | | | | [phone] | | | +--------+ + + + [...] [place] | | | | | | [address] | | | | | | | | +--------+---------+ + + + | 11/24/ | Office | Cardiology | [place], | | | 2019 | Visit | | SINDHU Erickson [address] | | | | | | [place], | | | | | | [place] [address] | | | | | | [phone] | | | | | | | [...] + | MISCELLANEOUS LAB | | | [phone] | + +---------+ + + | MISCELANIOUS LAB | | | [phone] | + +---------+ + + documented in [...] | | | | Nebulization, RT Once, [place] | | | | | | | [...]
--- OUTSIDE RECORDS SUMMARY | ~2019-02-28 | XMS | Encounter Summary ---
Demographics + + + | Address | [address] | | | [place] [address] | + + + | Home Phone [...] Providers + +------+ + | Care Concrete Foreman Name | Role | Phone | [...] + | 08/30/ | Emergency | [facility] | [place], | Tachycardia (Primary | | 2018 | | MED CTR EMERGENCY | Ozzy Kim MD [address] | Dx); Hypokalemia | | | | CENTER [address] | [address] [place] | | | | | [place] | [place] [address] | | | | | [address] | [phone] | | | | | [phone] | | | +--------+ + + + [...] | | | | | | ([facility]) | | | | [...] | | | | | | ([facility]) | | | | [...] [place] | | | | | | [address] | | | | | | | | +--------+---------+ + + + | 11/24/ | Office | Cardiology | [place], | | | 2020 | Visit | | SINDHU Erickson [address] | | | | | | [place], | | | | | | [place] [address] | | | | | | [phone] | | | | | | | [...] W?MRN: | | | | | | [id number] | | | [id number] | | | his | | | [...] | HEATEHR 4 | | | 20 Rx | [...] | | | icalte | | | [email or web address] | | | | +---+--------+ documented in this encounter Results Holter monitor - 48 hour (09/04/2017 10:18 AM PDT) + + + | Narrative | Performed At | + + + | Jared Mcdonough MD 09/04/2017 10:47 PATIENT NAME: | JUNE ALFORD | | Rosario Malik : 1965: AGE: 52 y.o. | | | PRIMARY CARE: Yong | | | DO CAMILLE Cherry PLANT MAINTENANCE SUPERVISOR: Jared Mcdonough MD | | | [...] | Signed by: Jared Mcdonough MD [facility] 09/04/2017, 10:18 | | + + [...] + | [facility] | [address] | [place] | [phone] | | [facility] | | [address] | | | - LABORATORY | | [...] | | | | | | [employer] | | | | | [...] + | [facility] | [address] | [place] | [phone] | | [facility] | | [address] | | | - LABORATORY | | [...] mL/min/1.73m2 | [facility] | | | SERBIAN | RATE,ESTIMATED | | MEDICAL | | | | mL/min/1.92o7Mwsq than | | CENTER - | | [...] [address] | [place] | [phone] | | [facility] | | [address] | | | - LABORATORY | | [...] | | Basophils | | K/uL | [facility] | | | | | | [...] [address] | [place] | [phone] | | [facility] | | [address] | | | - LABORATORY | | [...] | Top Tube | | | [facility] | | | | | | [...] [address] | [place] | [phone] | | [facility] | | [address] | | | - LABORATORY | | [...] [address] | [place] | [phone] | | [facility] | | [address] | | | - LABORATORY | | [...] ST. | [address] | [place], [place] | [phone] | | [facility] | | [address] | | | - LABORATORY | | [...] [address] | [place] | [phone] | | [facility] | | [address] | | | - LABORATORY | | [...] + | [facility] | [address] | [place] | [phone] | | [facility] | | [address] | | | - LABORATORY | | [...] + | [facility] | [address] | [place] | [phone] | | [facility] | | [address] | | | - LABORATORY | | [...] | | | | | RAFA PAUL ([id number]) on | | | | | | [...]
--- OUTSIDE RECORDS SUMMARY | ~2019-02-28 | XMS | Encounter Summary ---
Demographics + + + | Address | [address] | | | [place] [address] | + + + | Home Phone [...] Providers + +------+ + | Care Relief Manager Name | Role | Phone | + +------+ + | Juan Cherry DO | PCP | | + +------+ + Encounter Details +--------+ + + + + | Date | Type | Department | Care Team | Description | +--------+ + + + + | 11/08/ | Hospital | [facility] MEDICAL | Conversion | Asthma, moderate | | 2014 | Encounter | CENTER CARDIAC | Transaction, | persistent, | | | | PULMONARY REHAB | Provider Unknown | uncomplicated | | | | [address] [facility] | [phone] | | | | | [place], [place] | | | | | | [address] | | | | | | [phone] | | | +--------+ + + + [...] | | | | send order to [facility] | | | | | [...] [place] | | | | | | [address] | | | | | | | | +--------+---------+ + + + | 11/24/ | Office | Cardiology | [place], | | | 2019 | Visit | | SINDHU Erickson [address] | | | | | | [place], | | | | | | [place] [address] | | | | | | [phone] | | | | | | | | +--------+---------+ + + + documented as of this encounter Visit Diagnoses + + | Diagnosis | + + | Asthma, moderate persistent, uncomplicated | + + documented in this encounter"
--- OUTSIDE RECORDS SUMMARY | ~2019-02-28 | XMS | Encounter Summary ---
Demographics + + + | Address | [address] | | | [place] [address] | + + + | Home Phone [...] Team Providers + +------+ + | Care Dance Teacher Name | Role | Phone | [...] | | | | OP [address] | [place] | | | | | [place] | [address] | | | | | [address] | | | | | | [phone] | | | +--------+ + + + [...] [place], PT - 06/24/2016 11[facility] [address] [place] [address] Physical Therapy Discharge Note This discharge is [...] to discharge this patient from therapy [facility]. The last progress note or the patients [...] [place] | | | | | | [address] | | | | | | | | +--------+---------+ + + + | 11/24/ | Office | Cardiology | [place], | | | 2019 | Visit | | SINDHU Erickson [address] | | | | | | [place] | | | | | | [place] [address] | | | | | | [phone] | | | | | | | | +--------+---------+ + + + documented as of this encounter Visit Diagnoses Not on filedocumented in this encounter"
--- OUTSIDE RECORDS SUMMARY | ~2019-02-28 | XMS | Encounter Summary ---
Demographics + + + | Address | [address] | | | [place] [address] | + + + | Home Phone [...] Team Providers + +------+ + | Care Pipeline Integrity Engineer Name | Role | Phone | [...] | | | | | | [place], | | | | | | [place] [address] | | | | | | [phone] | | | +--------+ + + + [...] Speech Pathologist - 06/27/2016 11:26 AM [facility] [address] [facility] [address] Cancellation/No Show Date: 06/27/2016 Patient Information Patient [...] [place] | | | | | | [id number] | | | | | | | | +--------+---------+ + + + | 11/24/ | Office | Cardiology | [place], | | | 2019 | Visit | | SINDHU Erickson [address] | | | | | | [place] | | | | | | [place] [address] | | | | | | [phone] | | | | | | | | +--------+---------+ + + + documented as of this encounter Visit Diagnoses Not on filedocumented in this encounter"
--- OUTSIDE RECORDS SUMMARY | ~2019-02-28 | XMS | Encounter Summary ---
Demographics + + + | Address | [address] | | | [place] [address] | + + + | Home Phone [...] Team Providers + +------+ + | Care Structural Steel Detailer Name | Role | Phone | + +------+ + | Juan Cherry DO | PCP | | + +------+ + Encounter Details +--------+ + + + + | Date | Type | Department | Care Team | Description | +--------+ + + + + | 02/08/ | Abstract | [facility] | Flores, | | | 2013 | | CARDIOLOGY [address] | SINDHU Erickson [address] | | | | | [place], | [place], | | | | | [place] [address] | [place] [address] | | | | | [phone] | [phone] | | | | | | | [...] [place] | | | | | | [address] | | | | | | | | +--------+---------+ + + + | 11/24/ | Office | Cardiology | Flores, | | | 2019 | Visit | | SINDHU Erickson W | | | | | | [place] | | | | | | [place] [address] | | | | | | [phone] | | | | | | | | +--------+---------+ + + + documented as of this encounter Visit Diagnoses Not on filedocumented in this encounter"
--- OUTSIDE RECORDS SUMMARY | ~2019-02-28 | XMS | Encounter Summary ---
Demographics + + + | Address | [address] | | | [place] [address] | + + + | Home Phone [...] | | + + +---------+ + | Vaeh Khan | ECON | Unknown | | + + +---------+ + Care Team Providers + +------+ + | Care Program Associate Name | Role | Phone [...] + + | 07/15/ | [facility] | [facility] | Kevin Sandoval, | COPD exacerbation | | 2013 | Visit | PULMONARY [address] | [address] | ([facility]) (Primary Dx); | | | | [place], | [place], [place] | COPD (chronic | | | | [place] [address] | [address] | obstructive | | | | [phone] | | pulmonary disease) | | | | | | ([facility]); Hypoxemia | +--------+---------+ + + + Social [...] are not enrolled in cardiac/pulmonary rehabilitation or [facility] physical therapy. They have not completed [...] duct (pouch) ([facility]) 10/28/2012 Overview: Managed by [facility] along with hypothyroidism Osteoarthritis Social [...] Need 99 months. Please send order to [facility] D isp: 1 each, Rfl: 0 Respiratory Therapy Supplies MISC, Change CPAP back to 11-14 cm H2O. All necessary supplies . No oxygen bleed in. Diagnosis Code(s)327.23. Length of Need: Lifetime. Please send order t [facility]. This is not a new [...] breath sounds few expiratory wheezes bilaterally. No space systems operations craftsman ckles or rhonchi. No dullness to percussion. [...] | | | | | | [place] [address] | | | | | | [phone] | | | | | | | [...] | 07/15/2014 | | | | | ([facility]) | | + + +--------+ + + [...]
--- OUTSIDE RECORDS SUMMARY | ~2019-02-28 | XMS | Encounter Summary ---
Demographics + + + | Address | [address] | | | [place] [address] | + + + | Home Phone [...] Team Providers + +------+ + | Care Slab Conditioner Supervisor Name | Role | Phone | [...] | | | | | [address] [place] | | | | | | [place] [address] | | | | | | [phone] | | | +--------+ + + + [...] Weber, PT - 05/27/2013 3:22 PM [facility] [place] [address] [facility] [address] Cancellation/No Show Date: 05/27/2013 Patient Information Patient [...] [place] | | | | | | [id number] | | | | | | | | +--------+---------+ + + + | 11/24/ | Office | Cardiology | Flores | | | 2019 | Visit | | SINDHU Erickson [address] | | | | | | [place] | | | | | | [place] [address] | | | | | | [phone] | | | | | | | | +--------+---------+ + + + documented as of this encounter Visit Diagnoses Not on filedocumented in this encounter"
--- OUTSIDE RECORDS SUMMARY | ~2019-02-28 | XMS | Encounter Summary ---
Demographics + + + | Address | [address] | | | [place] [address] | + + + | Home Phone [...] Providers + +------+ + | Care Supervisor Waterproofing Name | Role | Phone | + [...] + + | 10/02/ | Telephone | [facility] | Andriy Weber | Appointment | | 2017 | | [address] | [address] | | | | | [place] | THOM [facility] | | | | | [address] | [place] [address] | | | | | [phone] | [phone] | | | | | | | [...] [place] | | | | | | [address] | | | | | | | | +--------+---------+ + + + | 11/24/ | Office | Cardiology | Flores, | | | 2019 | Visit | | SINDHU Erickson W | | | | | | [place] | | | | | | [place] [address] | | | | | | [phone] | | | | | | | | +--------+---------+ + + + documented as of this encounter Visit Diagnoses Not on filedocumented in this encounter"
--- OUTSIDE RECORDS SUMMARY | ~2019-02-28 | XMS | Encounter Summary ---
Demographics + + + | Address | [address] | | | [place] [address] | + + + | Home Phone [...] Providers + +------+ + | Care Barrel Maker Name | Role | Phone | [...] | RN | | | | | [place], | | | | | | [place] [address] | | | | | | [phone] | | | +--------+ + + + [...] [place] | | | | | | [address] | | | | | | | | +--------+---------+ + + + | 11/24/ | Office | Cardiology | Flores, | | | 2020 | Visit | | SINDHU Erickson [address] | | | | | | [place], | | | | | | [place] [address] | | | | | | [phone] | | | | | | | | +--------+---------+ + + + documented as of this encounter Visit Diagnoses Not on filedocumented in this encounter"
--- OUTSIDE RECORDS SUMMARY | ~2019-02-28 | XMS | Encounter Summary ---
Demographics + + + | Address | [address] | | | [place] [address] | + + + | Home Phone [...] Team Providers + +------+ + | Care Mastic Worker Name | Role | Phone | [...] Alonso MD | | | | | [place], | | | | | | [place] [address] | | | | | | [phone] | | | +--------+ + + + [...] [place] | | | | | | [address] | | | | | | | | +--------+---------+ + + + | 11/24/ | Office | Cardiology | Flores, | | | 2019 | Visit | | SINDHU Erickson W | | | | | | [place], | | | | | | [place] [address] | | | | | | [phone] | | | | | | | | +--------+---------+ + + + documented as of this encounter Visit Diagnoses Not on filedocumented in this encounter"
--- OUTSIDE RECORDS SUMMARY | ~2019-02-28 | XMS | Encounter Summary ---
Demographics + + + | Address | [address] | | | [place] [address] | + + + | Home Phone [...] Team Providers + +------+ + | Care Deputy District Customs Director Name | Role | Phone | [...] | | | | CENTER [address] | [address] [place] | carried out due to | | | | [place] | [place] [address] | patient leaving | | | | [address] | [phone] | prior to being seen | | | | [phone] | | by health care | | [...] [place] | | | | | | [address] | | | | | | | | +--------+---------+ + + + | 11/24/ | Office | Cardiology | Florse, | | | 2019 | Visit | | SINDHU Erickson W | | | | | | [place], | | | | | | [place] [address] | | | | | | [phone] | | | | | | | [...] W?MRN: | | | | | | [id number] | | | [id number] | | | his | | | [...]
--- OUTSIDE RECORDS SUMMARY | ~2019-02-28 | XMS | Encounter Summary ---
Demographics + + + | Address | [address] | | | [place] [address] | + + + | Home Phone [...] Team Providers + +------+ + | Care Bait Packer Name | Role | Phone | + +------+ + | Juan Cherry DO | PCP | | + +------+ + Encounter Details +--------+ + + + + | Date | Type | Department | Care Team | Description | +--------+ + + + + | 11/12/ | Hospital | [facility] | Andriy Weber | | | 2016 | Encounter | MED CTR XRAY [address] | [address] | | | | | [place] | [place] | | | | | [place] [address] | [place] [address] | | | | | [phone] | [phone] | | | | | | | [...] | 0 | 10/13/19 | | | Gquwwsvhoy-TXJU-Wjlf | mouth as needed. | | | 16 | 7 | | -Cod [id number] MG | | | | | | [...] [place] | | | | | | [address] | | | | | | | | +--------+---------+ + + + | 11/24/ | Office | Cardiology | Flores, | | | 2019 | Visit | | SINDHU Erickson W | | | | | | [place], | | | | | | [place] [address] | | | | | | [phone] | | | | | | | [...]
--- OUTSIDE RECORDS SUMMARY | ~2019-02-28 | XMS | Encounter Summary ---
Demographics + + + | Address | [address] | | | [place] [address] | + + + | Home Phone [...] Team Providers + +------+ + | Care Wirer Helper Name | Role | Phone | + +------+ + PCP | Unavailable | + +------+ + Encounter Details +--------+ + + + + | Date | Type | Department | Care Team | Description | +--------+ + + + + | 10/15/ | Hospital | [facility] | Berna Vizcaino MD | Dizziness; | | 2010 | Encounter | CONVERSION DEP [address] | [address] | [place]; | | | | [address] | [place] [address] | Diplopia | | | | [place], [place] | [phone] | | | | | [address] | | | | | | [phone] | | | +--------+ + + + [...] [place] | | | | | | [address] | | | | | | | | +--------+---------+ + + + | 11/24/ | Office | Cardiology | Flores, | | | 2019 | Visit | | SINDHU Erickson [address] | | | | | | [place], | | | | | | [place] [address] | | | | | | [phone] | | | | | | | [...] EXTERNAL LAB | | Testing performed at [facility];[address] [place] [address];[place] [address] APPEARANCE | | | CLEAR Testing performed at | | | [facility];[address] [place] [address];[place] [address] Tube Number, CSF | | | 1 Testing performed at [facility] [address] | | | Blvd;[place] [address] CSF RBC | | | 0 Testing performed at [facility];[address] [place] [address];[place], [place] | | | [address] CSF WBC 0 | | | Testing performed at [facility];[address] [place] [address];[place] [address] | | + + + + +---------+ [...] At | + + + | [facility] [address] Ph: | | | Patient Name: JADYN SCHMITZ Date of : | | | 1965 Medical Record: [id number] Account: [id number] | | | Exam Date/Time: 10/15/2010 10:15 [...] this patient in the | | | Rubber Tile Floor Layer holding room. The patient was awake, alert, [...] - 10/17/2018 5:21 PM PDT | | [facility] | | [facility] [address] | | | | | | Patient Name: JADYN SCHMITZ | | Date of : 1965 | | Medical Record: [id number] | | Account: [id number] | | | | | | Exam [...] | I met this patient in the Rubber Tile Floor Layer holding room. The patient was awake, | [...] EXTERNAL LAB | | Testing performed at [facility];[address] [place] [address];[place] [address] VIRAL | | | CULTURE ACCESSION NO. | | | [id number] SPECIMEN SOURCE | | | CEREBROSPINAL FLUID RESULT | | | PRELIMINARY: NO VIRUS ISOLATED AT 7 | | | DAYS. | | | FINAL: NO VIRUS ISOLATED AT 14 DAYS. Testing performed at | | | [address] [address] VIRAL CULTURE,STATUS | | | REPORT STATUS FINAL | | | 10/30/2010 Testing performed at [address] | | | [address] | | + + + + +---------+ [...] | Testing performed at | | | [facility];[address] [facility];[place] [address] GRAM STAIN | | | NO CELLS OR ORGANISMS SEEN | | | Testing performed at [facility], [address] [place] [address] | | | [place] [address] CULTURE | | | NO GROWTH 3 DAYS | | | Testing performed at [facility], [address] [place] [address], [place], | | | [place] [address] REPORT STATUS 10/18/2010 | | | FINAL [...] | EXTERNAL LAB | | performed at [facility];[address] [place] [address];[place] [address] | | + + + + +---------+ [...] EXTERNAL LAB | | Testing performed at [facility];[address] [place] [address];[place] [address] | | + + + + +---------+ [...]
--- OUTSIDE RECORDS SUMMARY | ~2019-02-28 | XMS | Encounter Summary ---
Demographics + + + | Address | [address] | | | [place] [address] | + + + | Home Phone [...] Team Providers + +------+ + | Care Svp Operations Name | Role | Phone | + +------+ + | Juan Cherry DO | PCP | | + +------+ + Encounter Details +--------+ + + + + | Date | Type | Department | Care Team | Description | +--------+ + + + + | 09/09/ | Hospital | [facility] | Conversion | Pain | | 2015 | Encounter | CONVERSION DEP [address] | Transaction, | | | | | [address] | Provider Unknown | | | | | [place], [place] | [phone] | | | | | [address] | | | | | | [phone] | | | +--------+ + + + [...] | | | | [place] | | | | | | [address] | | | | | | | | +--------+---------+ + + + | 11/24/ | Office | Cardiology | Flores, | | | 2019 | Visit | | SINDHU Erickson [address] | | | | | | [place], | | | | | | [place] [address] | | | | | | [phone] | | | | | | | [...]
--- OUTSIDE RECORDS SUMMARY | ~2019-02-28 | XMS | Encounter Summary ---
Demographics + + + | Address | [address] | | | [place] [address] | + + + | Home Phone [...] + +------+ + | Care Degreasing Solution Reclaimer Name | Role | Phone | + [...] ST | | | | | [address] [place] | [place] | | | | | [place] [address] | [address] | | | | | [phone] | | | +--------+ + + + [...] | | | | | | [place] [address] | | | | | | [phone] | | | | | | | | +--------+---------+ + + + documented as of this encounter Visit Diagnoses Not on filedocumented in this encounter"
--- OUTSIDE RECORDS SUMMARY | ~2019-02-28 | XMS | Encounter Summary ---
Demographics + + + | Address | [address] | | | [place] [address] | + + + | Home Phone [...] Providers + +------+ + | Care Pharmacy Technologist Name | Role | Phone | [...] | [place] | [facility]OM [facility] | | | | | [address] | [place] [address] | | | | | [phone] | [phone] | | | | | | | [...] [place] | | | | | | [address] | | | | | | | | +--------+---------+ + + + | 11/24/ | Office | Cardiology | Flores, | | | 2019 | Visit | | SINDHU Erickson [address] | | | | | | [place], | | | | | | [place] [address] | | | | | | [phone] | | | | | | | | +--------+---------+ + + + documented as of this encounter Visit Diagnoses Not on filedocumented in this encounter"
--- OUTSIDE RECORDS SUMMARY | ~2019-02-28 | XMS | Encounter Summary ---
Demographics + + + | Address | [address] | | | [place] [address] | + + + | Home Phone [...] Providers + +------+ + | Care Practice Managers Name | Role | Phone | + +------+ + PCP | Unavailable | + +------+ + Encounter Details +--------+ + + + + | Date | Type | Department | Care Team | Description | +--------+ + + + + | 02/08/ | Hospital | [facility] | Deniz Alexi Kim, | | | 2009 | Encounter | MED CTR EMERGENCY | [address] | | | | | [place] [address] | [place] | | | | | [place] | [address] | | | | | [address] | | | | | | [phone] | | | +--------+ + + + [...] [place] | | | | | | [address] | | | | | | | | +--------+---------+ + + + | 11/24/ | Office | Cardiology | Flores, | | | 2019 | Visit | | SINDHU Erickson [address] | | | | | | [place], | | | | | | [place] [address] | | | | | | [phone] | | | | | | | | +--------+---------+ + + + documented as of this encounter Visit Diagnoses Not on filedocumented in this encounter"
--- OUTSIDE RECORDS SUMMARY | ~2019-02-28 | XMS | Encounter Summary ---
Demographics + + + | Address | [address] | | | [place] [address] | + + + | Home Phone [...] Providers + +------+ + | Care Quality Assurance/R&D Lab Technician Name | Role | Phone [...] + + | 04/16/ | Emergency | [facility] | Sonny Cesar MD | Epigastric pain | | 2016 | | MED CTR EMERGENCY | [address] | (Primary Dx); Chest | | | | CENTER [address] | [place] | pain, unspecified | | | | [place], [place] | [address] | chest pain type | | | | [address] | | | | | | [phone] | | | +--------+ + + + [...] | | | | | order to [facility]. | | | | | [...] [place] | | | | | | [address] | | | | | | | | +--------+---------+ + + + | 11/24/ | Office | Cardiology | Flores, | | | 2020 | Visit | | SINDHU Erickson [address] | | | | | | [place], | | | | | | [place] [address] | | | | | | [phone] | | | | | | | [...] | | | | | | [employer] | | | | | [...] [address] | [place] | [phone] | | [facility] | | [address] | | | - LABORATORY | | [...] + | [facility] | [address] | [place] | [phone] | | [facility] | | [address] | | | - LABORATORY | | [...] mL/min/1.73m2 | Chris [facility] | | | FIJIAN | RATE,ESTIMATED | | MEDICAL | | | | mL/min/1.36o2Kups than | | CENTER - | | [...] [address] | [place] | [phone] | | [facility] | | [address] | | | - LABORATORY | | [...] + | [facility] | [address] | [place] | [phone] | | [facility] | | [address] | | | - LABORATORY | | [...] | | | | RAFA WELLS MD ([id number]) | | | | | | on [...] | | | | | Intravenous, ONCE, [place] 04/16/15 at | | PM PST | | | | | 1600, For 1 dose | | | | | | + +-------+ +--------+---+---+ +---+---+ | | | +---+---+ + +-------+ +--------+---+---+ | HYDROmorphone (DILAUDID) | Given | 04/16/19 | 0.5 mg | | | | injection 0.5 mg 0.5 mg, | | 16 4:45 | | | | | Intravenous, ONCE, [place] 04/16/15 at | | PM PST | [...]
--- OUTSIDE RECORDS SUMMARY | ~2019-02-28 | XMS | Encounter Summary ---
Demographics + + + | Address | [address] | | | [place] [address] | + + + | Home Phone [...] Providers + +------+ + | Care Manager Material Name | Role | Phone | + +------+ + | Juan Cherry DO | PCP | | + +------+ + Encounter Details +--------+ + + + + | Date | Type | Department | Care Team | Description | +--------+ + + + + | 12/22/ | Hospital | [facility] | Yecenia Gallegos | | | 2012 - | Encounter | MED CTR MEDICAL | Yinka Aguirre MD [address] | | | | | [address] [place] | [facility] | | | 12/24/ | | [place] [address] | [place] [address] | | | 2012 | | [phone] John, | | | | | | [...] Lucian Lopez MD - 12/24/2012 10:13 AM [place], [place] [address] Patient Name: JADYN SCHMITZ Provider: Lucian Lopez MD Unit #: [id number] Location: [facility] : 1965 ADMISSION DATE: 12/22/2012 DISCHARGE DATE: 12/24/2012 PRIMARY CARE PROVIDER: Juan Cherry DO. MORTGAGE PROCESSING MANAGER: Loreta London MD. DISCHARGING PHYSICIAN: Lucian Lopez MD. DISCHARGE DIAGNOSES 1. ACUTE EXACERBATION OF CHRONIC OBSTRUCTIVE PULMONARY DISEASE. IMPROVED. 2. DEPRESSION/FIBROMYALGIA. 3. HYPOTHYROIDISM. 4. OBSTRUCTIVE SLEEP APNEA. HISTORY OF PRESENT ILLNESS: Please refer to the history and physical examination note dicta kelley on 12/22. The patient is a 47-year-old lady who has a past medical history of MANAGER COST D. She came in with shortness of [...] BY: Lucian Lopez MD Hospitalist JOB #: [id number] EXT JOB #:[id number] EDITED: 12/27/2012 07:16 <<Signature on File>> Lucian [...] | | | | | | [place] [address] | | | | | | [phone] | | | | | | | [...] + | [facility] | [address] | [place] | [phone] | | [facility] | | [address] | | | - LABORATORY | | | | + + + + + | [facility] | [address] | [place], [place] | | | [facility] | | [address] | | | - LABORATORY | | [...] [address] | [place] | [phone] | | [facility] | | [address] | | | - LABORATORY | | | | + + + + + | [facility] | [address] | [place], [place] | | | [facility] | | [address] | | | - LABORATORY | | [...] + | [facility] | [address] | [place] | [phone] | | [facility] | | [address] | | | - LABORATORY | | | | + + + + + | [facility] | [address] | [place] | | | [facility] | | [address] | | | - LABORATORY | | [...] + | [facility] | [address] | [place] | [phone] | | [facility] | | [address] | | | - LABORATORY | | | | + + + + + | [facility] | [address] | [place] | | | [facility] | | [address] | | | - LABORATORY | | | | + + + + + XR Chest AP Portable (12/22/2012 12:40 PM PDT) + + | Specimen | + + | | + + + + + | Narrative | Performed At | + + + | [facility] | [facility] | | Department [address] , [place] | [facility] | | [ rep ct [address]] [ rep [facility] | | st zip] Signed | - IMAGING | | | | | Patient Name: JADYN SCHMITZ | | | Physician: JAZMYN : 1965 Age: 47 Sex: F Unit | | | #: [id number] Exam Date: 12/22/12 Location: | | | [address] [place] [address] Report #: [id number] Page: | | | %(RAD)RES..mtdd.print.filter("pg") of %(RAD) | | | RES..mtdd.print.filter("tpg") | | | | | | Accession Number: [id number] | | | CHEST PORTABLE CLINICAL HISTORY: [...] | | | Transcribed Date/Time: 12/22/2012 13:10 Casing In Line Setter: | | | <<Signature on File>> | | | Kobe | | | MD Tor12/22/12 1424 <Electronically signed by Kobe Lentz MD> | | | Kobe Lentz MD 12/22/12 1240 Casing In Line Setter: Webbrianx | | | Smpfpqxqufani49/29/13 1310 Yecenia Gallegos MD | | | | | + + + + + + + + | Performing | Address | City/State/Zipcode | Phone Number | | Organization | | | | + + + + + | [facility] | [address] | [place] | [phone] | | [facility] | | [address] | | | - IMAGING | | [...] [address] | [place] | [phone] | | [facility] | | [address] | | | - LABORATORY | | | | + + + + + | [facility] | [address] | [place] | | | [facility] | | [address] | | | - LABORATORY | | [...] 11 | 7 - 18 mg/dL | [facility] | | | | | | [facility] | | | | | | MEDICAL | | | | | | CENTER - | | | | | | LABORATORY | | + + + + + + | Creatinine | 0.81 | 0.60 - 1.30 | [facility] | | | | | mg/dL | [facility] | | | | | | MEDICAL | | | | | | CENTER - | | | | | | LABORATORY | | + + + + + + | Estimated | >60Comment: For | >60 mL/min/A | [facility] | | | GFR | -Americans, [...] + | [facility] | [address] | [place] | [phone] | | [facility] | | [address] | | | - LABORATORY | | | | + + + + + | [facility] | [address] | [place] | | | [facility] | | [address] | | | - LABORATORY | | | | + + + + + documented in this encounter Visit Diagnoses Not on filedocumented in this encounter
--- OUTSIDE RECORDS SUMMARY | ~2019-02-28 | XMS | Encounter Summary ---
Demographics + + + | Address | [address] | | | [place] [address] | + + + | Home Phone [...] + + | 11/11/ | Telephone | [facility] [place] | Shashi Segovia | Results | | 2013 | | PHYSIATRY [address] MD Need updated | | | | | [place], | address | | | | | [place] [address] | | | | | | [phone] | | | +--------+ + + + [...] [place] | | | | | | [address] | | | | | | | | +--------+---------+ + + + | 11/24/ | Office | Cardiology | [place], | | | 2019 | Visit | | SINDHU Erickson [address] | | | | | | [place], | | | | | | [place] [address] | | | | | | [phone] | | | | | | | | +--------+---------+ + + + documented as of this encounter Visit Diagnoses Not on filedocumented in this encounter"
--- OUTSIDE RECORDS SUMMARY | ~2019-02-28 | XMS | Encounter Summary ---
Demographics + + + | Address | [address] | | | [place] [address] | + + + | Home Phone [...] Providers + +------+ + | Care Student Recruiter Name | Role | Phone | [...] + | 07/24/ | Telephone | [facility] | Meghan Garcia MD | Follow-up | | 2019 | | SLEEP DISORDER [address] | [address] | | | | | [place] | [place] | | | | | [place] [address] | [address] | | | | | [phone] | | | +--------+ + + + [...] [place] | | | | | | [address] | | | | | | | | +--------+---------+ + + + | 11/24/ | Office | Cardiology | [place], | | | 2019 | Visit | | SINDHU Erickson W | | | | | | [place], | | | | | | [place] [address] | | | | | | [phone] | | | | | | | | +--------+---------+ + + + documented as of this encounter Visit Diagnoses Not on filedocumented in this encounter"
--- OUTSIDE RECORDS SUMMARY | ~2019-02-28 | XMS | Encounter Summary ---
Demographics + + + | Address | [address] | | | [place] [address] | + + + | Home Phone [...] Team Providers + +------+ + | Care Lather Apprentice Name | Role | Phone | [...] | 02/22/ | Off-Site | [facility] ID | [place], | Tachyarrhythmia | | 2013 | Visit | CARDIOLOGY [address] | SINDHU Erickson [address] | (Primary Dx); | | | | [place], | [place], | Palpitations; Other | | | | [place] [address] | [place] [id number] | chest pain | | | | [phone] | [phone] | | | | | | | [...] other kind of bleeding. Fever over 101.0F. 9559-3090 [employer]. [address] [place] [address], [place] [address]. All righ ts reserved. This information is [...] Therapy Supplies [facility] Incentive spirometer. Please provide instructions in use. Dx: 848.8 MADELEINE: 3 months 1 each 99 Respiratory Therapy Supplies [facility] Please provide patient with necessary CPAP supplies ( she did not specify, okay to send order as appropriate) Diagnosis Code(s)327.23 . Length of Need 99 months. Please send order to [facility]. 1 each 0 Respiratory Therapy [...] She is in a class II-III of [place] [employer] ation functional class. There is [...] this chart may have been created with [employer] voice recognition software. Occasi onal wrong-word or [...] | | | | | | [place] [id number] | | | | | | [phone] | | | | | | | [...] Rosario Malik, (1965) MEDICAL RECORD NUMBER: | [facility] | | [id number] DATE OF PROCEDURE: 02/28/2014 COVERING MACHINE OPERATOR: | - IMAGING | | Jared [...] Malik, (1965) OF | | PROCEDURE: 02/28/2014PRIMARY SAMPLE GRADER: Jared Mcdonough MD PROCEDURES | | PERFORMED:Coronary [...] [address] | [place] | [phone] | | [facility] | | [address] | | | - IMAGING | | | | + + + + + documented in this encounter Visit Diagnoses + + | Diagnosis | + + | Tachyarrhythmia - Primary Tachycardia, unspecified | + + | Palpitations | + + | Other chest pain | + + documented in this encounter
--- OUTSIDE RECORDS SUMMARY | ~2019-02-28 | XMS | Encounter Summary ---
Demographics + + + | Address | [address] | | | [place] [address] | + + + | Home Phone [...] Team Providers + +------+ + | Care Ep Technologist Name | Role | Phone | + +------+ + | Juan Cherry DO | PCP | | + +------+ + Encounter Details +--------+ + + + + | Date | Type | Department | Care Team | Description | +--------+ + + + + | 11/21/ | Hospital | [facility] | Andriy Weber | Interstitial | | 2016 | Encounter | MED CTR OR INTRA OP | MD Robert [address] | cystitis (chronic) | | | | [address] | [facility]OM [facility] | without hematuria | | | | [place], [place] | [place] [address] | (Primary Dx) | | | | [address] | [phone] | | | | | [phone] | | | +--------+ + + + [...] (the anesthesiologist will discuss these with you) 6996-4514 [facility]. [address] [place] [address]. All righ ts reserved. This information is [...] | 0 | 10/13/19 | | | Edwbxwrqzc-OAIJ-Epwy | mouth as needed. | | | 16 | 7 | | -Cod [id number] MG | | | | | | [...] Jose R [facility] [place] [place] | | | | | | [address] | | | | | | | | +--------+---------+ + + + | 11/24/ | Office | Cardiology | [place], | | | 2019 | Visit | | SINDHU Erickson [address] | | | | | | [place], | | | | | | [place] [address] | | | | | | [phone] | | | | | | | [...] [address] | [place] | [phone] | | [facility] | | [address] | | | - LABORATORY | | [...] mild chronic mucosal | | | inflammation. JVR:[facility]:C2NR GROSS DESCRIPTION: The specimen is | [...] 0.3 x 0.3 cm, all into (C1). yt:CLR:[facility] | | | MICROSCOPIC EXAMINATION: Histologic sections of all submitted blocks | | | are examined by light microscopy. These findings, together with the | | | gross examination, support the pathologic diagnosis. PERFORMING | | | LABORATORY: Tissue processing and slide preparation were performed by | | | [facility], [address] [facility] [address], [place] [address] | | | (Civil Geotechnical Engineer: Kale Estrella M.D.; CLIA#: [id number]). | | | Professional interpretation was performed by [facility], | | | [facility], [address] | | | [place] [address] (Civil Geotechnical Engineer: Kale Estrella M.D.; CLIA#: | | | [id number]). Diagnostician: Kale Estrella MD Pathologist | | [...] | | | | | | use [place] 10/325 if ordered. If | | | [...]
--- OUTSIDE RECORDS SUMMARY | ~2019-02-28 | XMS | Encounter Summary ---
Demographics + + + | Address | [address] | | | [place] [address] | + + + | Home Phone [...] Team Providers + +------+ + | Care Band Director Name | Role | Phone | + +------+ + PCP | Unavailable | + +------+ + Encounter Details +--------+ + + + + | Date | Type | Department | Care Team | Description | +--------+ + + + + | 02/08/ | Hospital | [facility] | Deniz Alexi Kim, | | | 2009 | Encounter | MED CTR EMERGENCY | [address] | | | | | [place] [address] | [place] | | | | | [place] | [address] | | | | | [address] | | | | | | [phone] | | | +--------+ + + + [...] [place] | | | | | | [address] | | | | | | | | +--------+---------+ + + + | 11/24/ | Office | Cardiology | [place], | | | 2019 | Visit | | SINDHU Erickson [address] | | | | | | [place], | | | | | | [place] [address] | | | | | | [phone] | | | | | | | | +--------+---------+ + + + documented as of this encounter Visit Diagnoses Not on filedocumented in this encounter"
--- OUTSIDE RECORDS SUMMARY | ~2019-02-28 | XMS | Encounter Summary ---
Demographics + + + | Address | [address] | | | [place] [address] | + + + | Home Phone [...] Providers + +------+ + | Care Board Hammer Operator Name | Role | Phone [...] | COPD | MD Kevin | [address] [place] | | | | | (chronic | [address] | [place], | | | | | obstructive | [address] | [place] [address] | | | | | pulmonary | [place], | Phone: | | | | | disease) | [place] [address] | [phone] | | | | | (HCC) | Phone: | Fax: | | | | | Procedures | [phone] | [phone] | | | | | CT Chest wo | Fax: | | | | | | Contrast | [phone] | | +--------+--------+ + + + + [...] | COPD | MD Kevin | [address] [place] | | | | | (chronic | [address] | [place], | | | | | obstructive | [address] | [place] [address] | | | | | pulmonary | [place], | Phone: | | | | | disease) | [place] [address] | [phone] | | | | | (HCC) | Phone: | Fax: | | | | | Procedures | [phone] | [phone] | | | | | CT Chest wo | Fax: | | | | | | Contrast | [phone] | | +--------+--------+ + + + + Encounter Details +--------+ + + + + | Date | Type | Department | Care Team | Description | +--------+ + + + + | 11/16/ | Hospital | [facility] | Kevin Sandoval, | COPD (chronic | | 2013 | Encounter | MED CTR CT [address] | [address] | obstructive | | | | [place], | [place], [place] | pulmonary disease) | | | | [place] [address] | [id number] | ([facility]) | | | | [phone] | | | +--------+ + + + [...] [place] | | | | | | [address] | | | | | | | | +--------+---------+ + + + | 11/24/ | Office | Cardiology | [place], | | | 2019 | Visit | | SINDHU Erickson [address] | | | | | | [place], | | | | | | [place] [address] | | | | | | [phone] | | | | | | | [...] + | MISCELLANEOUS LAB | | | [phone] | + +---------+ + + | MISCELANIOUS LAB | | | [phone] | + +---------+ + + documented in this encounter Visit Diagnoses + + | Diagnosis | + + | COPD (chronic obstructive pulmonary disease) (HCC) Chronic airway obstruction, not | | elsewhere classified | + + documented in this encounter
--- OUTSIDE RECORDS SUMMARY | ~2019-02-28 | XMS | Encounter Summary ---
Demographics + + + | Address | [address] | | | [place] [address] | + + + | Home Phone [...] Providers + +------+ + | Care Machine Compositor Name | Role | Phone | + [...] + + | 04/06/ | Office | [facility] | Brian Miranda | Sprain of chest wall | | 2014 | Visit | OCCUPATIONAL HEALTH | MD Ozzy [address] | (Primary Dx); Place | | | | [address] | [facility] | of occurrence, | | | | [address] [facility] | [place] [address] | industrial places | | | | [place], [place] | [phone] | and premises | | | | [address] | | | | | | [phone] | | | +--------+---------+ + + + [...] MD - 04/06/2013 5:30 PM PSTSee dictation [id number] lisha d by Brian Miranda MD at 04/06/2013 5:30 PM Brian Avendano MD - 04/06/19 14 12:00 AM [facility] OCCUPATIONAL MEDICINE [address] [place] [address] [place], [place] [address] FAX: [phone] OFFICE VISIT CLAIM NO: [id number] DATE OF INJURY: 04/05/2013 EMPLOYER: Jelani Alcantara GUARANTOR: Jelani Rojas COMPLAINT: Chest wall sprain, unscheduled visit for followup evaluation and ongoing care. S: The injured worker is 48 years of age who presented without a scheduled appointment at [facility] urgent care/Occ/Med for an evaluation. 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 It was quite p ainful. She was unable to continue to work. She was evaluated in the emergency department a [facility] and that report is available [...] GChris Miranda MD / AP JOB #: [id number] signed by Brian Miranda MD at 04/07/2013 [...] | | | | [place] | | | | | | [address] | | | | | | | | +--------+---------+ + + + | 11/24/ | Office | Cardiology | [place] | | | 2019 | Visit | | SINDHU Erickson [address] | | | | | | [place], | | | | | | [place] [address] | | | | | | [phone] | | | | | | | [...]
--- OUTSIDE RECORDS SUMMARY | ~2019-02-28 | XMS | Encounter Summary ---
Demographics + + + | Address | [address] | | | [place] [address] | + + + | Home Phone [...] Team Providers + +------+ + | Care University Librarian Name | Role | Phone | + +------+ + PCP | Unavailable | + +------+ + Encounter Details +--------+ + + + + | Date | Type | Department | Care Team | Description | +--------+ + + + + | 10/09/ | Hospital | [facility] | Avi, Guru Garzon, | | | 2010 - | Encounter | MED CTR EMERGENCY | MD [address] | | | | | CENTER [address] | [facility] [place] | | | 10/10/ | | [place], [place] | [place] [address] | | | 2010 | | [address] | [phone] | | | | | [phone] | | | +--------+ + + + [...] | | | | | | [place] [address] | | | | | | [phone] | | | | | | | [...] Performed At | + + + | [facility] Diagnostic Imaging Department | [facility] | | [address] [facility] | [facility] | | NONCONTRAST [address], 2330 [...] | | | Transcribed Date/Time: 10/10/2010 11:50 Field Marketing Manager: | | | <Electronically Signed by Elías Cardoso MD> 10/11/10 0821 | | + + + + + | Procedure Note | + + | Reed, Rad Conversion - 04/02/2013 3:36 PM [facility] | | Diagnostic Imaging Department [address] [place] [address] | | NONCONTRAST HEAD CT, 2330 HOURS, [...] 11:33 | |Transcribed Date/Time: 10/10/2010 11:50 | |Field Marketing Manager: | |<Electronically Signed by lEías Cardoso MD> 10/11/10 0821 | + + [...]
--- OUTSIDE RECORDS SUMMARY | ~2019-02-28 | XMS | Encounter Summary ---
Demographics + + + | Address | [address] | | | [place] [address] | + + + | Home Phone [...] Providers + +------+ + | Care Care Worker Name | Role | Phone | [...] 07/18/ | Emergency | [facility] | Ozzy Aponte | Laceration of left | | 2013 | | MED CTR EMERGENCY | Ozzie Kebede MD | upper arm without | | | | CENTER [address] | [address] | foreign body, | | | | [place] | [place] | initial encounter | | | | [address] | [address] | (Primary Dx) | | | | [phone] | | | +--------+ + + + [...] | | | | | [facility]. | | | | | [...] [place] | | | | | | [address] | | | | | | | | +--------+---------+ + + + | 11/24/ | Office | Cardiology | [place], | | | 2019 | Visit | | SINDHU Erickson [address] | | | | | | [place], | | | | | | [place] [address] | | | | | | [phone] | | | | | | | [...] -------- | | | ---- 07/18/2013 12:04 [place] | | | [facility] Emergency cut on Lft arm; | | | 07/14/2013 00:15 [facility] | | | Emergency Shortness of Breath; | | | | | | Chronic obstructive asthma with (acute) exacerbation; | | | 06/19/2013 21:06 [facility] | | | Emergency Obstructive chronic bronchitis with (acute) | | | exacerbation; | | | Shortness of | | | Breath; | | | diff breathing; | | | 06/19/2013 11:03 [facility] | | | Emergency COPD exasperation; 05/23/2013 19:52 [place] | | | [facility] [...] ------ | | | --------- 11 0 [facility]. | | | [facility] 11 0 Total | | | Note: Visits indicate total known visits. Medicaid [place] Dx are the | | | number of primary diagnoses on the [facility]'s non-emergent dx list. | | | | [...] | | + +--------+ +---------+------+ + | jfxetmf-qdykoxedvv-bsfmizjwu | Given | 07/19/19 | 0.5 mLs [...]
--- OUTSIDE RECORDS SUMMARY | ~2019-02-28 | XMS | Encounter Summary ---
Demographics + + + | Address | [address] | | | [place] [address] | + + + | Home Phone [...] Team Providers + +------+ + | Care Day Worker Name | Role | Phone | [...] | (Primary Dx) | | | | [address] | [address] | | | | | [phone] | | | +--------+---------+ + + + [...] [place] | | | | | | [address] | | | | | | | | +--------+---------+ + + + | 11/24/ | Office | Cardiology | [place], | | | 2019 | Visit | | SINDHU Erickson [address] | | | | | | [place], | | | | | | [place] [address] | | | | | | [phone] | | | | | | | | +--------+---------+ + + + documented as of this encounter Results XR Foot Left 3 + Vw (01/07/2013 2:30 PM PST) + + | Specimen | + + | | + + + + + | Narrative | Performed At | + + + | [facility] Diagnostic Imaging | ROUNDUP | | Department [address] [facility] | [facility] | | [ rep ct [address]] [ rep [facility] | | st zip] Signed | - IMAGING | | | | | Patient Name: JADYN SCHMITZ | | | Physician: FRANCA : 1965 Age: 47 Sex: F Unit | | | #: [id number] Exam Date: 01/07/13 Location: | | | [facility].IMG Report #: [id number] Page: | | | %(RAD)RES..mtdd.print.filter("pg") of %(RAD) | | | RES..mtdd.print.filter("tpg") | | | | | | Accession Number: [id number] | | | LEFT FOOT, 01/07/2013 CLINICAL [...] Transcribed | | | Date/Time: 01/07/2013 15:01 Rotary Pump Operator: | | | <<Signature on File>> | | | Kobe | | | MD Tor01/07/13 [id number] <Electronically signed by Kobe Lentz MD> | | | Kobe Lentz MD 01/07/13 1430 Rotary Pump Operator: UpDroidyariel | | | Ayfozexeqcgsi46/14/13 1501 Lencho Astorga MD | | + + + + + + + + | Performing | Address | City/State/Zipcode | Phone Number | | Organization | | | | + + + + + | [facility] | [address] | [place] | [phone] | | [facility] | | [address] | | | - IMAGING | | | | + + + + + documented in this encounter Visit Diagnoses + + | Diagnosis | + + | Contusion of foot including toes - Primary Contusion of foot | + + documented in this encounter
--- OUTSIDE RECORDS SUMMARY | ~2019-02-28 | XMS | Encounter Summary ---
Demographics + + + | Address | [address] | | | [place] [address] | + + + | Home Phone [...] Providers + +------+ + | Care Pbx Teacher Name | Role | Phone | [...] | SR | | | | | [phone] | | | +--------+ + + + [...] [place] | | | | | | [address] | | | | | | | | +--------+---------+ + + + | 11/24/ | Office | Cardiology | [place], | | | 2019 | Visit | | SINDHU Erickson [address] | | | | | | [place], | | | | | | [place] [address] | | | | | | [phone] | | | | | | | [...]
--- OUTSIDE RECORDS SUMMARY | ~2019-02-28 | XMS | Encounter Summary ---
Demographics + + + | Address | [address] | | | [place] [address] | + + + | Home Phone [...] Team Providers + +------+ + | Care Shredding Machine Operator Name | Role | Phone [...] 2016 | | MED CTR EMERGENCY | [address] [address] | Dx); Acute | | | | CENTER [address] | [place], [place] | hypokalemia; Urinary | | | | [place], [place] | [id number] | tract infection | | | | [address] | | without hematuria, | | | | [phone] | | site unspecified | +--------+ + [...] [place] | | | | | | [id number] | | | | | | | | +--------+---------+ + + + | 11/24/ | Office | Cardiology | [place], | | | 2019 | Visit | | SINDHU Erickson [address] | | | | | | [place], | | | | | | [place] [address] | | | | | | [phone] | | | | | | | [...] [address] | [place] | [phone] | | [facility] | | [address] | | | - LABORATORY | | [...] - 1.030 | [facility] | | | [place] | | | [facility] | | [...] [address] | [place] | [phone] | | [facility] | | [address] | | | - LABORATORY | | [...] not | 39 (L)Comment: | >=60 | [facility] | | | | GLOMERULAR FILTRATION | mL/min/1.73m2 | [facility] | | | [facility] | RATE,ESTIMATED | | MEDICAL | | | | mL/min/1.87d0Yznh than | | CENTER - | | [...] + | [facility] | [address] | [place] | [phone] | | [facility] | | [address] | | | - LABORATORY | | [...] [address] | [place] | [phone] | | [facility] | | [address] | | | - LABORATORY | | [...] | | | | | | [employer] | | | | | [...] [address] | [place] | [phone] | | [facility] | | [address] | | | - LABORATORY | | [...] | | | | RAFA WELLS MD ([id number]) | | | | | | on [...]
--- OUTSIDE RECORDS SUMMARY | ~2019-02-28 | XMS | Encounter Summary ---
Demographics + + + | Address | [address] | | | [place] [address] | + + + | Home Phone [...] Providers + +------+ + | Care Cork Wirer Name | Role | Phone | [...] | | | | CENTER [address] | [address] | of stomach (Primary | | | | [place], [place] | [place], [place] | Dx) | | | | [address] | [address] | | | | | [phone] | | | +--------+ + + + [...] other worsening symptoms. Please follow-up with her [facility] physician. documented in this encounter Medications [...] [place] | | | | | | [address] | | | | | | | | +--------+---------+ + + + | 11/24/ | Office | Cardiology | [place] | | | 2019 | Visit | | SINDHU Erickson [address] | | | | | | [place], | | | | | | [place] [address] | | | | | | [phone] | | | | | | | [...] - 1.030 | [facility] | | | [place] | | | [facility] | | [...] [address] | [place] | [phone] | | [facility] | | [address] | | | - LABORATORY | | [...] | A preliminary report was sent by [facility] on 04/12/2015 at | | | 9:16 [...] Chanelle fundoplication.A preliminary report was sent by [facility] on 04/12/2015 at | | 9:16 PM [...] | |A preliminary report was sent by [facility] on 04/12/2015 at 9:16 PM with no [...] + | [facility] | [address] | [place] | [phone] | | [facility] | | [address] | | | - LABORATORY | | [...] | | | | | | [employer] | | | | | [...] [address] | [place] | [phone] | | [facility] | | [address] | | | - LABORATORY | | [...] | | | | | | [facility] | | | | | | [...] [address] | [place] | [phone] | | [facility] | | [address] | | | - LABORATORY | | [...] | | | FILTRATION | mL/min/1.73m2 | [facility] | | | [place] | RATE,ESTIMATED | | MEDICAL | | | | mL/min/1.45m4Gjua than | | CENTER - | | [...] | + + + + + | [facility] | [address] | [place] | [phone] | | [facility] | | [address] | | | - LABORATORY | | [...] [address] | [place] | [phone] | | [facility] | | [address] | | | - LABORATORY | | [...] | | | | RAFA WELLS MD ([id number]) | | | | | | on [...]
--- OUTSIDE RECORDS SUMMARY | ~2019-02-28 | XMS | Encounter Summary ---
Demographics + + + | Address | [address] | | | [place] [address] | + + + | Home Phone [...] Providers + +------+ + | Care Service Station Console Operator Name | Role | Phone | [...] | | | | | [place] | [facility] | | | | | [address] | [place] [address] | | | | | [phone] | [phone] | | | | | | | [...] [place] | | | | | | [address] | | | | | | | | +--------+---------+ + + + | 11/24/ | Office | Cardiology | [place], | | | 2019 | Visit | | SINDHU Erickson [address] | | | | | | [place], | | | | | | [place] [address] | | | | | | [phone] | | | | | | | | +--------+---------+ + + + documented as of this encounter Visit Diagnoses Not on filedocumented in this encounter"
--- OUTSIDE RECORDS SUMMARY | ~2019-02-28 | XMS | Encounter Summary ---
Demographics + + + | Address | [address] | | | [place] [address] | + + + | Home Phone [...] Team Providers + +------+ + | Care Moveman Name | Role | Phone | + [...] | Specialty | Rehabilitatio | Diagnoses | Rodriugez, | [facility] | | | Services | n | Concussion | Aaron Kim MD | Personal Investment Adviser [address] | | | Required | | with brief | [address] | [place] | | | | | loss of | [place] | [place], [place] | | | | | consciousnes | [place], | [address] | | | | | s Word | [place] [address] | Phone: | | | | | finding | Phone: | [phone] | | | | | difficulty | [phone] | Fax: | | | | | [phone] | Fax: | [phone] | | | | | (ICD-10-CM) | [phone] | | | | | | - [...] + | 07/18/ | Hospital | [facility] | Aaron Rodriguez, | Canceled (Illness) | | 2017 | Encounter | MED CTR SPEECH | [address] | | | | | THERAPY [address] | [place] | | | | | [place], | [id number] | | | | | [place] [address] | | | | | | [phone] | Cesia Su | | | | | | M, Speech | | | | | | Pathologist [address] | | | | | [address] [place] | | | | | | [place] [address] | | | | | | [phone] | | | | | | | [...] Speech Pathologist - 07/18/2016 9:41 [facility] [address] [place] [address] Cancellation/No Show Date: 07/18/2016 Patient Information Patient [...] | | | | | | [place] [address] | | | | | | [phone] | | | | | | | | +--------+---------+ + + + documented as of this encounter Visit Diagnoses Not on filedocumented in this encounter"
--- OUTSIDE RECORDS SUMMARY | ~2019-02-28 | XMS | Encounter Summary ---
Demographics + + + | Address | [address] | | | [place] [address] | + + + | Home Phone [...] Providers + +------+ + | Care Manager Strategy & Account Name | Role | Phone | + [...] + + | 07/09/ | Clinical | [facility] | Andriy Weber | Bladder pain | | 2018 | Support | [address] | MD Robert [address] | (Primary Dx) | | | | [place], [place] | [facility]OM [facility] | | | | | [address] | [place] [address] | | | | | [phone] | [phone] | | | | | | | [...] [place] | | | | | | [id number] | | | | | | | | +--------+---------+ + + + | 11/24/ | Office | Cardiology | [place], | | | 2019 | Visit | | SINDHU Erickson [address] | | | | | | [place], | | | | | | [place] [address] | | | | | | [phone] | | | | | | | [...]
--- OUTSIDE RECORDS SUMMARY | ~2019-02-28 | XMS | Encounter Summary ---
Demographics + + + | Address | [address] | | | [place] [address] | + + + | Home Phone [...] Providers + +------+ + | Care Pellet Press Operator Name | Role | Phone [...] | Off-Site | [facility] [place] | [place], | Tachycardia (Primary | | 2013 | Visit | CARDIOLOGY [address] | SINDHU Erickson [address] | Dx); Palpitations; | | | | [place], | [place], | Tachyarrhythmia; | | | | [place] [address] | [place] [address] | Other chest pain | | | | [phone] | [phone] | | | | | | | [...] she was prescribed colchicine. Patient did not apple picker prescription and has not started it. [...] 15mg/day x 7 days Respiratory Therapy Supplies [facility] Incentive spirometer. Please provide instructions in use. Dx: 848.8 MADELEINE: 3 months 1 each 99 Respiratory Therapy Supplies [facility] [...] Need: Lifetime. Please send orde r to [facility]. This is not a new [...] HGBEX 14.5 05/10/2013 I reviewed records from [facility] for emergency department visit o n [...] She is in a class II of [place] [employer] functional class. There is no [...] and ventricular function don e at the [facility]. LVEF 78%. C. [...] this chart may have been created with LifeBook voice recognition software. Occasi onal wrong-word or [...] | | | | | | [place] [address] | | | | | | [phone] | | | | | | | [...] 1965 Medical Record Number: | | | [id number] Date: 01/27/2014 Time: 10:20 EKG Interpretation | [...]
--- OUTSIDE RECORDS SUMMARY | ~2019-02-28 | XMS | Encounter Summary ---
Demographics + + + | Address | [address] | | | [place] [address] | + + + | Home Phone [...] Team Providers + +------+ + | Care Log Chain Worker Name | Role | Phone | [...] + + | 08/11/ | Telephone | [facility] [place] | Kevin Sandoval, | Other (decision to | | 2013 | | PULMONARY [address] | MD [address] | quit job) | | | | [place], | [place] | | | | | [place] [address] | [id number] | | | | | [phone] | | | +--------+ + + + [...] | | | | | | [place] [address] | | | | | | [phone] | | | | | | | | +--------+---------+ + + + documented as of this encounter Visit Diagnoses + + | Diagnosis | + + | Central sleep apnea Primary central sleep apnea | + + documented in this encounter"
--- OUTSIDE RECORDS SUMMARY | ~2019-02-28 | XMS | Encounter Summary ---
Demographics + + + | Address | [address] | | | [place] [address] | + + + | Home Phone [...] Providers + +------+ + | Care Supervisor Cell Maintenance Name | Role | Phone | + +------+ + | Juan Cherry DO | PCP | | + +------+ + Encounter Details +--------+ + + + + | Date | Type | Department | Care Team | Description | +--------+ + + + + | 02/27/ | Hospital | [facility] | Mukul Clark MD | Pulmonary emphysema, | | 2017 | Encounter | MED CTR PULMONARY | [address] | unspecified | | | | FUNCTION [address] | [address] [place] | emphysema type (HCC) | | | | [place], | [address] | | | | | [place] [address] | | | | | | [phone] | | | +--------+ + + + [...] | 0 | 10/13/19 | | | Dgsocekrii-AIDQ-Zfgl | mouth as needed. | | | 16 | 7 | | -Cod [id number] MG | | | | | | [...] [place] | | | | | | [id number] | | | | | | | | +--------+---------+ + + + | 11/24/ | Office | Cardiology | [place], | | | 2019 | Visit | | SINDHU Erickson [address] | | | | | | [place] | | | | | | [place] [address] | | | | | | [phone] | | | | | | | [...] | | Romi Sandoval MD 02/29/2016 6:30[facility] | | |IMPRESSION: Spirometry is consistent [...] Sandoval MD 02/29/2016 6:30 | | |[facility] | | + + + documented [...]
--- OUTSIDE RECORDS SUMMARY | ~2019-02-28 | XMS | Encounter Summary ---
Demographics + + + | Address | [address] | | | [place] [address] | + + + | Home Phone [...] Team Providers + +------+ + | Care Chute Puller Name | Role | Phone | + [...] + + | 04/13/ | Emergency | [facility] | Alverto Tyler, | Abdominal pain, | | 2016 | | MED CTR EMERGENCY | [address] | acute, epigastric | | | | CENTER [address] [place] | [place] | (Primary Dx) | | | | [place] | [address] | | | | | [address] | | | | | | [phone] | Ozzy Louis | | | | | | MD Julio [address] | | | | | | [place] | | | | | | [address] | | | | | | [phone] | | | | | | | | | | | | Nestor Martinez MD | | | | | | [address] | | | | | | [place] | | | | | | [id number] | | | | | | | [...] [place] | | | | | | [address] | | | | | | | | +--------+---------+ + + + | 11/24/ | Office | Cardiology | [place], | | | 2020 | Visit | | SINDHU Erickson [address] | | | | | | [place], | | | | | | [place] [address] | | | | | | [phone] | | | | | | | [...] + | [address] | [address] | [place], [place] | [phone] | | [facility] | | [address] | | | - LABORATORY | | [...] | | | FILTRATION | mL/min/1.73m2 | [facility] | | | AUSTRALIAN | RATE,ESTIMATED | | MEDICAL | | | | mL/min/1.06g1Tcyv than | | CENTER - | | [...] | | | | | mg/dL | [facility] | | | | | [...] ST. | [address] | [place], [place] | [phone] | | [facility] | | [address] | | | - LABORATORY | | [...]
--- OUTSIDE RECORDS SUMMARY | ~2019-02-28 | XMS | Encounter Summary ---
Demographics + + + | Address | [address] | | | [place] [address] | + + + | Home Phone [...] Providers + +------+ + | Care Digital Strategy Specialist Name | Role | Phone | [...] sleep | MD [address] | [address] | | | | | apnea) | [address] | [place], | | | | | Central | [place], | [place] [address] | | | | | sleep apnea | [place] [address] | Phone: | | | | | | | [phone] | | | | | | | Fax: | | | | | | | [phone] | +--------+ + + + + + [...] | sleep apnea) | | | | [address] [place], | | (Primary Dx); | | | | [place] [address] | | Central sleep apnea; | | | | [phone] | | COPD exacerbation | | | [...] not cancer Colonoscopy 03/2010 Colonoscopy: 1995 at [facility] Social History: History Social History Marital Status: Single Spouse Name: N/A Number of Children: 1 Years of Education: 13 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
--- OUTSIDE RECORDS SUMMARY | ~2019-02-28 | XMS | Encounter Summary ---
Demographics + + + | Address | [address] | | | [place] [address] | + + + | Home Phone [...] Providers + +------+ + | Care Biological Sciences Professor Name | Role | Phone | [...] Cert MA | | | | | [place], | | | | | | [place] [address] | | | | | | [phone] | | | +--------+ + + + [...] [place] | | | | | | [address] | | | | | | | | +--------+---------+ + + + | 11/24/ | Office | Cardiology | [place], | | | 2019 | Visit | | SINDHU Erickson [address] | | | | | | [place], | | | | | | [place] [address] | | | | | | [phone] | | | | | | | | +--------+---------+ + + + documented as of this encounter Visit Diagnoses Not on filedocumented in this encounter"
--- OUTSIDE RECORDS SUMMARY | ~2019-02-28 | XMS | Encounter Summary ---
Demographics + + + | Address | [address] | | | [place] [address] | + + + | Home Phone [...] + + | 10/18/ | Telephone | [facility] | Kevin Sandoval, | Other (increased | | 2013 | | PULMONARY [address] | MD [address] | shortness of breath) | | | | [place], | [place], [place] | | | | | [place] [address] | [address] | | | | | [phone] | | | +--------+ + + + [...] [place] | | | | | | [address] | | | | | | | | +--------+---------+ + + + | 11/24/ | Office | Cardiology | [place], | | | 2020 | Visit | | SINDHU Erickson [address] | | | | | | [place], | | | | | | [place] [address] | | | | | | [phone] | | | | | | | | +--------+---------+ + + + documented as of this encounter Visit Diagnoses Not on filedocumented in this encounter"
--- OUTSIDE RECORDS SUMMARY | ~2019-02-28 | XMS | Encounter Summary ---
Demographics + + + | Address | [address] | | | [place] [address] | + + + | Home Phone [...] Providers + +------+ + | Care High School Tutor Name | Role | Phone | [...] [address] | | | | | [place], | [address] [place] | | | | | [place] [address] | [place] [address] | | | | | [phone] | [phone] | | | | | | | [...] Speech Pathologist - 07/18/2016 10:08 AM [facility] [address] [facility] [address] Cancellation/No Show Date: 07/18/2016 Patient Information Patient [...] [place] | | | | | | [id number] | | | | | | | | +--------+---------+ + + + | 11/24/ | Office | Cardiology | [place] | | | 2019 | Visit | | SINDHU Erickson [address] | | | | | | [place] | | | | | | [place] [address] | | | | | | [phone] | | | | | | | | +--------+---------+ + + + documented as of this encounter Visit Diagnoses Not on filedocumented in this encounter"
--- OUTSIDE RECORDS SUMMARY | ~2019-02-28 | XMS | Encounter Summary ---
Demographics + + + | Address | [address] | | | [place] [address] | + + + | Home Phone [...] Team Providers + +------+ + | Care Corn Breeder Name | Role | Phone | + [...] + + | 02/14/ | Telephone | [facility] | Jesus Quiles | Shortness of Breath | | 2012 | | PULMONARY [address] | MD [place] [address] [facility] | | | | | [place], | [place], [place] | | | | | [place] [address] | [address] | | | | | [phone] | | | +--------+ + + + [...] [place] | | | | | | [address] | | | | | | | | +--------+---------+ + + + | 11/24/ | Office | Cardiology | [place], | | | 2019 | Visit | | SINDHU Erickson [address] | | | | | | [place], | | | | | | [place] [address] | | | | | | [phone] | | | | | | | | +--------+---------+ + + + documented as of this encounter Visit Diagnoses + + | Diagnosis | + + | COPD (chronic obstructive pulmonary disease) (HCC) - Primary Chronic airway | | obstruction, not elsewhere classified | + + documented in this encounter"
--- OUTSIDE RECORDS SUMMARY | ~2019-02-28 | XMS | Encounter Summary ---
Demographics + + + | Address | [address] | | | [place] [address] | + + + | Home Phone [...] Providers + +------+ + | Care Dental Office Coordinator Name | Role | Phone | [...] | | MD Jared | [address] | | | | | Pericarditis | [address] | [place], | | | | | Procedures | [address] | [place] | | | | | ECHO | [place], | [address] | | | | | Complete | [place] [address] | Phone: | | | | | | Phone: | [phone] | | | | | | [phone] | Fax: | | | | | | Fax: | [phone] | | | | | | [phone] | | +--------+--------+ + + + + [...] | | MD Jared | [address] | | | | | Pericarditis | [address] | [place], | | | | | Procedures | [address] | [place] | | | | | ECHO | [place], | [address] | | | | | Complete | [place] [address] | Phone: | | | | | | Phone: | [phone] | | | | | | [phone] | Fax: | | | | | | Fax: | [phone] | | | | | | [phone] | | +--------+--------+ + + + + Encounter Details +--------+ + + + + | Date | Type | Department | Care Team | Description | +--------+ + + + + | 01/14/ | Hospital | [facility] | Jared Mcdonough, | Pericarditis | | 2013 | Encounter | MED CTR ECHO [address] | [address] | | | | | [place] | [place], | | | | | [place] [address] | [place] [address] | | | | | [phone] | [phone] | | | | | | | [...] | | | | | | [place] [address] | | | | | | [phone] | | | | | | | [...] Performed At | + + + | [facility] ECHOCARDIOGRAM REPORT | [place] | | STUDY DATE: 01/14/2014 PATIENT NAME: Rosario Malik | [facility] | | : 1965 PCP: Juan Cherry, [facility] | | CLINICAL HISTORY/DIAGNOSIS: Pericarditis/pericardial [...] by: | | | Jared Mcdonough MD [facility] 01/14/2014 8:40 [employer]: | | | Charmaine Ibarra RDMS | | + + + + + | Procedure Note | + + | Jared Mcdonough MD - 01/14/2014 11:[address] [facility] | | CENTERECHOCARDIOGRAM REPORTSTUDY DATE: 01/14/2014PATIENT NAME: Rosario AyersOB: | | 1965MRN: [id number]: EFREN GuillaumeLINICAL HISTORY/DIAGNOSIS: | | Pericarditis/pericardial effusionA [...] | mmHgLA volume: 30 mLLA index: 18 mL/g6Hepdye Inflow DT: 262 msIVRT: 75 msValsalva: | | NegativePWDTI S wave: 8.7 cm/sPWDTI E wave: 9.0 cm/sPWDTI A wave: 11.5 cm/sE/A Ratio: | | 0.783E/E Ratio: 8.95Signed by: Jared Mcdonough MD [facility] 01/14/2014 8:40 | | [employer]: Charmaine Ibarra RDMS | | | | [...] | | |Signed by: Jared Mcdonough MD [facility] | | 01/14/2014 8:40 | | | | | |[employer]: Charmaine Ibarra RDMS | + + + + + + + | Performing | Address | City/State/Zipcode | Phone Number | | Organization | | | | + + + + + | [address] | [address] | [place] | [phone] | | [facility] | | [address] | | | - IMAGING | | [...]
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
--- OUTSIDE RECORDS SUMMARY | ~2019-02-28 | XMS | Encounter Summary ---
Demographics + + + | Address | [address] | | | [place] [address] | + + + | Home Phone [...] Team Providers + +------+ + | Care Pear Picker Name | Role | Phone | [...] | esophagitis | [address] | [place] | | | | | presence not | [place], [place] | [place], | | | | | specified | [address] | [place] [address] | | | | | Procedures | Phone: | Phone: | | | | | [place] Gastric | [phone] | [phone] | | | | | Emptying | Fax: | Fax: | | | | | | [phone] | [phone] | +--------+--------+ + + + + Reason [...] | | Gastroesopha | MD Jesus | JAY EM | | | | | geal reflux | [address] | MEDICAL | | | | | disease, | [address] | CENTER [address] | | | | | esophagitis | [address] | [place] | | | | | presence not | [place], [place] | [place], | | | | | specified | [address] | [place] [address] | | | | | Procedures | Phone: | Phone: | | | | | [place] Gastric | [phone] | [phone] | | | | | Emptying | Fax: | Fax: | | | | | | [phone] | [phone] | +--------+--------+ + + + + Encounter Details +--------+ + + + + | Date | Type | Department | Care Team | Description | +--------+ + + + + | 04/02/ | Hospital | [facility] | Dio Yun | Gastroesophageal | | 2017 | Encounter | MED CTR NUCLEAR | MD Jesus [address] | reflux disease, | | | | MEDICINE [address] | ROSEMARY OLMEDO Jose [address] | esophagitis presence | | | | [place], | [place], [place] | not specified | | | | [place] [address] | [address] | | | | | [phone] | [phone] | | | | | | | [...] | | | | order to [facility]. | | | | | + [...] | 0 | 10/13/19 | | | Kuaygbfnly-UHEK-Bvul | mouth as needed. | | | 16 | 7 | | -Cod [id number] MG | | | | | | [...] [place] | | | | | | [address] | | | | | | | | +--------+---------+ + + + | 11/24/ | Office | Cardiology | [place], | | | 2019 | Visit | | SINDHU Erickson [address] | | | | | | [place], | | | | | | [place] [address] | | | | | | [phone] | | | | | | | [...]
--- OUTSIDE RECORDS SUMMARY | ~2019-02-28 | XMS | Encounter Summary ---
Demographics + + + | Address | [address] | | | [place] [address] | + + + | Home Phone [...] Team Providers + +------+ + | Care Imposer Name | Role | Phone | + +------+ + | Juan Cherry DO | PCP | | + +------+ + Encounter Details +--------+ + + + + | Date | Type | Department | Care Team | Description | +--------+ + + + + | 09/09/ | Hospital | [facility] | Conversion | Pain | | 2015 | Encounter | CONVERSION [address] | Transaction, | | | | | [address] | Provider Unknown | | | | | [place], [place] | [phone] | | | | | [address] | | | | | | [phone] | | | +--------+ + + + [...] [facility]. | | | | | [...] | | | | [address] [place] | | | | | | [address] | | | | | | | | +--------+---------+ + + + | 11/24/ | Office | Cardiology | [place], | | | 2019 | Visit | | SINDHU Erickson [address] | | | | | | [place], | | | | | | [place] [address] | | | | | | [phone] | | | | | | | [...]
--- OUTSIDE RECORDS SUMMARY | ~2019-02-28 | XMS | Encounter Summary ---
Demographics + + + | Address | [address] | | | [place] [address] | + + + | Home Phone [...] Providers + +------+ + | Care Supervisor Elementary Education Name | Role | Phone | [...] Provider Unknown | | | | | [place], [place] | [phone] | | | | | [address] | | | | | | [phone] | | | +--------+ + + + [...] | | | | Jose R [place] | | | | | | [address] | | | | | | | | +--------+---------+ + + + | 11/24/ | Office | Cardiology | [place], | | | 2019 | Visit | | SINDHU Erickson [address] | | | | | | [place], | | | | | | [place] [address] | | | | | | [phone] | | | | | | | [...]
--- OUTSIDE RECORDS SUMMARY | ~2019-02-28 | XMS | Encounter Summary ---
Demographics + + + | Address | [address] | | | [place] [address] | + + + | Home Phone [...] [address] | | | | | [place], | [place] | | | | | [place] [address] | [address] | | | | | [phone] | | | +--------+--------+ + + + [...] [place] | | | | | | [address] | | | | | | | | +--------+---------+ + + + | 11/24/ | Office | Cardiology | [place], | | | 2019 | Visit | | SINDHU Erickson [address] | | | | | [place] | | | | | | [place] [address] | | | | | | [phone] | | | | | | | | +--------+---------+ + + + documented as of this encounter Visit Diagnoses Not on filedocumented in this encounter"
--- OUTSIDE RECORDS SUMMARY | ~2019-02-28 | XMS | Encounter Summary ---
Demographics + + + | Address | [address] | | | [place] [address] | + + + | Home Phone [...] Team Providers + +------+ + | Care Utilization Engineer Name | Role | Phone | [...] + | 09/04/ | Off-Site | [facility] | [place], | Paroxysmal atrial | | 2016 | Visit | CARDIOLOGY [address] | SINDHU Erickson [address] | tachycardia (HCC) | | | | [place], | [place], | (Primary Dx); Chest | | | | [place] [address] | [place] [address] | pain, unspecified | | | | [phone] | [phone] | type | | | | | [...] da rigoberto Respiratory Therapy Supplies [facility] Please provide patient with necessary CPAP supplies ( she did not specify, okay to send order as appropriate) Diagnosis Code(s)327.23 . Length of Need 99 months. Please send order to [facility]. 1 each 0 Respiratory Therapy Supplies [facility] [...] RESULTS reviewed during visit today [facility] from [facility]: LIPID No results found for: CHOL, [...] [place] Heart Association functional class. There is n [...] this chart may have been created with [employer] voice recognition software. Occasi onal wrong-word or [...] | | | | | | [place] [address] | | | | | | [phone] | | | | | | | [...]
--- OUTSIDE RECORDS SUMMARY | ~2019-02-28 | XMS | Encounter Summary ---
Demographics + + + | Address | [address] | | | [place] [address] | + + + | Home Phone [...] Providers + +------+ + | Care Surface Water Technician Name | Role | Phone | [...] W | | | | | | [place], | | | | | | [place] [address] | | | | | | [phone] | | | +--------+ + + + [...] Speech Pathologist - 06/27/2016 11:26 [facility] [address] [facility] [address] Cancellation/No Show Date: 06/27/2016 Patient Information Patient [...] [place] | | | | | | [id number] | | | | | | | | +--------+---------+ + + + | 11/24/ | Office | Cardiology | Flores, | | | 2019 | Visit | | SINDHU Erickson [address] | | | | | | [place] | | | | | | [place] [address] | | | | | | [phone] | | | | | | | | +--------+---------+ + + + documented as of this encounter Visit Diagnoses Not on filedocumented in this encounter"
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
--- OUTSIDE RECORDS SUMMARY | ~2019-02-28 | XMS | Encounter Summary ---
Demographics + + + | Address | [address] | | | [place] [address] | + + + | Home Phone [...] Team Providers + +------+ + | Care Engraver Apprentice Decorative Name | Role | Phone | + [...] [address] | | | | | [place], | [place], | | | | | [place] [address] | [place] [address] | | | | | [phone] | [phone] | | | | | | | [...] [place] | | | | | | [address] | | | | | | | | +--------+---------+ + + + | 11/24/ | Office | Cardiology | Flores, | | | 2019 | Visit | | SINDHU Erickson [address] | | | | | | [place], | | | | | | [place] [address] | | | | | | [phone] | | | | | | | [...]
--- OUTSIDE RECORDS SUMMARY | ~2019-02-28 | XMS | Encounter Summary ---
Demographics + + + | Address | [address] | | | [place] [address] | + + + | Home Phone [...] Providers + +------+ + | Care Mortgage Or Loan Underwriter Name | Role | Phone | [...] + + | 10/16/ | Office | [facility] | Mcdonough, | Tachycardia (Primary | | 2017 | Visit | CARDIOLOGY [address] | SINDHU Erickson [address] | Dx); Paroxysmal | | | | [place], | [place], | atrial tachycardia | | | | [place] [address] | [place] [address] | (HCC) | | | | [phone] | [phone] | | | | | | | [...] this da rigoberto Respiratory Therapy Supplies [facility] Please provide patient with necessary CPAP supplies ( she did not specify, okay to send order as appropriate) Diagnosis Code(s)327.23 . Length of Need 99 months. Please send order to [facility]. 1 each 0 Respiratory Therapy Supplies [facility] Change CPAP [...] longer present Confirmed by RAFA WELLS MD ([id number]) on 08/06/2015 9:42:29 AM LAB RESULTS reviewed during visit today primarily from [facility]: LIPID Lab Results Component Value Date CHOLHDL [...] She was seen at the ED of [facility] 3 weeks ago and again [...] a class II of [place] Heart Association functional class. There is [...] and v entricular function done at the [facility]. LVEF 78%. C. Holter Monitor [...] this chart may have been created with [employer] voice recognition software. Occasi onal wrong-word or [...] [place] | | | | | | [address] | | | | | | | | +--------+---------+ + + + | 11/24/ | Office | Cardiology | Flores, | | | 2019 | Visit | | SINDHU Erickson [address] | | | | | | [place], | | | | | | [place] [address] | | | | | | [phone] | | | | | | | [...] Juan | | | DO CAMILLE Cherry [employer]: Clay Mcdonough MD | | | 48-HOUR [...] | | Signed by: Clay Mcdonough MD [facility] 10/18/2016, | | | 10:51 | [...] CLAY | | | | | | ([id number]) on 10/16/2016 | | | | | [...]
--- OUTSIDE RECORDS SUMMARY | ~2019-02-28 | XMS | Encounter Summary ---
Demographics + + + | Address | [address] | | | [place] [address] | + + + | Home Phone [...] Providers + +------+ + | Care Mission Support Specialist Name | Role | Phone | + +------+ + PCP | Unavailable | + +------+ + Encounter Details +--------+ + + + + | Date | Type | Department | Care Team | Description | +--------+ + + + + | 06/26/ | [facility] | [facility] | | | | 2009 - | Encounter | MED CTR OP REHAB | | | | | | [address] [place] | | | | 07/24/ | | [place] [address] | | | | 2009 | | [phone] | | | +--------+ + + + [...] [place] | | | | | | [address] | | | | | | | | +--------+---------+ + + + | 11/24/ | Office | Cardiology | Folres, | | | 2020 | Visit | | SINDHU Erickson [address] | | | | | | [place], | | | | | | [place] [address] | | | | | | [phone] | | | | | | | | +--------+---------+ + + + documented as of this encounter Visit Diagnoses Not on filedocumented in this encounter"
--- OUTSIDE RECORDS SUMMARY | ~2019-02-28 | XMS | Encounter Summary ---
Demographics + + + | Address | [address] | | | [place] [address] | + + + | Home Phone [...] Providers + +------+ + | Care White Shoe Ragger Name | Role | Phone | + [...] + + | 03/25/ | [facility] | [facility] | Daryl Hargrove | Diverticulitis of | | 2014 | Visit | CARE [address] | Ernie Sanabria MD | large intestine | | | | [place], [place] | [address] | without perforation | | | | [address] | [place] | or abscess without | | | | [phone] | [address] | bleeding (Primary | | | | [...] [place] | | | | | | [id number] | | | | | | | | +--------+---------+ + + + | 11/24/ | Office | Cardiology | Flores, | | | 2019 | Visit | | SINDHU Erickson [address] | | | | | | [place] | | | | | | [place] [address] | | | | | | [phone] | | | | | | | [...] 1.001 - 1.030 | | | | [place], | | | | | | [facility], [...]
--- OUTSIDE RECORDS SUMMARY | ~2019-02-28 | XMS | Encounter Summary ---
Demographics + + + | Address | [address] | | | [place] [address] | + + + | Home Phone [...] Providers + +------+ + | Care Recruiting Intern Name | Role | Phone | [...] + + | 11/12/ | Office | [facility] | [place], | Chest pain, | | 2018 | Visit | CARDIOLOGY [address] | SINDHU Erickson [address] | unspecified type | | | | [place], | [place], | (Primary Dx); | | | | [place] [address] | [place] [address] | Palpitations; | | | | [phone] | [phone] | Paroxysmal atrial | | | | [...] follow up in 6 to 8 wee fl for office visit, or sooner with concerns. [...] rigoberto Respiratory Therapy Supplies [facility] Please provide patient with necessary CPAP supplies ( she did not specify, okay to send order as appropriate) Diagnosis Code(s)327.23 . Length of Need 99 months. Please send order to [facility]. 1 each 0 Respiratory Therapy Supplies [facility] Change CPAP back [...] RESULTS reviewed during visit today primarily from [facility]: LIPID Lab Results Component Value Date CHOLHDL [...] and v entricular function done at the [facility]. LVEF 78%. C. [...] She is in class II of the [place] Heart Association funct ional class. There are [...] this chart may have been created with [employer] voice recognition software. Occasi onal wrong-word or [...] [place] | | | | | | [address] | | | | | | | | +--------+---------+ + + + | 11/24/ | Office | Cardiology | [place], | | | 2019 | Visit | | SINDHU Erickson [address] | | | | | | [place], | | | | | | [place] [address] | | | | | | [phone] | | | | | | | [...] | | | | RUSSELL PAUL, RAFA ([id number]) | | | | | | on [...]
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
--- OUTSIDE RECORDS SUMMARY | ~2019-02-28 | XMS | Encounter Summary ---
Demographics + + + | Address | [address] | | | [place] [address] | + + + | Home Phone [...] Providers + +------+ + | Care Tire Maker Name | Role | Phone | [...] | (obstructive | [address] | [place] | | | | | sleep | [place] | [place], | | | | | apnea) | [place], [place] | [place] [address] | | | | | Procedures | [address] | Phone: | | | | | [place] | Phone: | [phone] | | | | | 6/>YRS SLEEP | [phone] | Fax: | | | | | 4/> ADDL | Fax: | [phone] | | | | | ALESSIA ATTND | [phone] | | | | | | [place] [...] + + | 08/03/ | Hospital | [facility] | Meghan Garcia MD | GARRY (obstructive | | 2019 - | Encounter | MED CTR SLEEP | [address] | sleep apnea) | | | | CENTER [address] | [place] | | | 08/04/ | | [place] | [address] | | | 2018 | | [address] | | | | | | [phone] | | | +--------+ + + + [...] | | | | | | | [facility]. | | | | | [...] [place] | | | | | | [address] | | | | | | | | +--------+---------+ + + + | 11/24/ | Office | Cardiology | Flores, | | | 2019 | Visit | | SINDHU Erickson [address] | | | | | | [place], | | | | | | [place] [address] | | | | | | [phone] | | | | | | | [...] [facility] | | | [place] [address] Polysomnogram | | | Report on Rosario [...] from Dr. Alarcon | | | in [place], [place]. It indicates that patient had CPAP [...] her COPD through her | | | clinical research management associate. We performed a CPAP titration study on [...] | | | during sleep study as usual.Book Binder note: Patient continues to | | | [...] this chart may have been created with [employer] | | | voice recognition software. Occasional [...] this chart may have been created with [employer] voice | | |recognition software. Occasional wrong-word [...] PDT [facility] | | [place], [place] [address]Nosgaujrnhxlg Report on Rosario Corona | Frances Malik [...] | | notes from Dr. Alarcon in [place], [place]. It indicates that patient had | [...] the day for her COPD through her clinical research management associate.We performed a | | CPAP titration study [...] quality during | | sleep study as usual.Book Binder note: Patient continues to struggle with mask [...] this chart may have been created with [employer] voice recognition software. | | Occasional wrong-word [...]
--- OUTSIDE RECORDS SUMMARY | ~2019-02-28 | XMS | Encounter Summary ---
Demographics + + + | Address | [address] | | | [place] [address] | + + + | Home Phone [...] Providers + +------+ + | Care Consumer Services Consultant Name | Role | Phone | [...] | apnea (adult) | | | | [place], | | (pediatric) (Primary | | | | [place] [address] | | Dx) | | | | [phone] | | | +--------+ + + + [...] [place] | | | | | | [address] | | | | | | | | +--------+---------+ + + + | 11/24/ | Office | Cardiology | Flores, | | | 2019 | Visit | | SINDHU Erickson [address] | | | | | | [place], | | | | | | [place] [address] | | | | | | [phone] | | | | | | | | +--------+---------+ + + + documented as of this encounter Visit Diagnoses + + | Diagnosis | + + | Obstructive sleep apnea (adult) (pediatric) - Primary | + + documented in this encounter"
--- OUTSIDE RECORDS SUMMARY | ~2019-02-28 | XMS | Encounter Summary ---
Demographics + + + | Address | [address] | | | [place] [address] | + + + | Home Phone [...] Team Providers + +------+ + | Care Energy Project Manager Name | Role | Phone [...] + | 02/09/ | Telephone | [facility] | Jaime Kevin, | Other | | 2013 | | PULMONARY [address] | MD [address] | | | | | [place], | [place], [place] | | | | | [place] [address] | [address] | | | | | [phone] | | | +--------+ + + + [...] | | | | | | [place] [address] | | | | | | [phone] | | | | | | | | +--------+---------+ + + + documented as of this encounter Visit Diagnoses Not on filedocumented in this encounter"
--- OUTSIDE RECORDS SUMMARY | ~2019-02-28 | XMS | Encounter Summary ---
Demographics + + + | Address | [address] | | | [place] [address] | + + + | Home Phone [...] Providers + +------+ + | Care Carton Gluing Machine Operator Name | Role | Phone [...] + | 08/28/ | Documentati | [facility] | Kathi Soto, | No Show | | 2017 | on | MED CTR SPEECH | Speech Pathologist | | | | | THERAPY [address] | | | | | | [place], | | | | | | [place] [address] | | | | | | [phone] | | | +--------+ + + + [...] Speech Pathologist - 08/28/2016 10:[facility] [address] [place] [address] Cancellation/No Show Date: 08/28/2016 Patient Information Patient [...] [place] | | | | | | [id number] | | | | | | | | +--------+---------+ + + + | 11/24/ | Office | Cardiology | [place], | | | 2019 | Visit | | SINDHU Erickson [address] | | | | | | [place] | | | | | | [place] [address] | | | | | | [phone] | | | | | | | | +--------+---------+ + + + documented as of this encounter Visit Diagnoses Not on filedocumented in this encounter"
--- OUTSIDE RECORDS SUMMARY | ~2019-02-28 | XMS | Encounter Summary ---
Demographics + + + | Address | [address] | | | [place] [address] | + + + | Home Phone [...] Providers + +------+ + | Care Near East Archeology Professor Name | Role | Phone | [...] | PULMONARY [address] | RN | ([facility]); COPD (chronic | | | | [place], | | obstructive | | | | [place] [address] | | pulmonary disease) | | | | [phone] | | ([facility]) | +--------+ + + + + Social [...] | | | | [facility] [facility] | | | | | | [address] | | | | | | | | +--------+---------+ + + + | 11/24/ | Office | Cardiology | [place], | | | 2019 | Visit | | SINDHU Erickson [address] | | | | | | [place], | | | | | | [place] [address] | | | | | | [phone] | | | | | | | [...]
--- OUTSIDE RECORDS SUMMARY | ~2019-02-28 | XMS | Encounter Summary ---
Demographics + + + | Address | [address] | | | [place] [address] | + + + | Home Phone [...] Team Providers + +------+ + | Care Hot Mill Shearer Name | Role | Phone | + [...] | 09/12/ | Telephone | [facility] | Jared Mcdonough, | Appointment | | 2014 | | CARDIOLOGY [address] | [address] [place] | | | | | [place], | [place], | | | | | [place] [address] | [place] [address] | | | | | [phone] | [phone] | | | | | | | [...] [place] | | | | | | [address] | | | | | | | | +--------+---------+ + + + | 11/24/ | Office | Cardiology | [place], | | | 2019 | Visit | | SINDHU Erickson [address] | | | | | | [place], | | | | | | [place] [address] | | | | | | [phone] | | | | | | | | +--------+---------+ + + + documented as of this encounter Visit Diagnoses Not on filedocumented in this encounter"
--- OUTSIDE RECORDS SUMMARY | ~2019-02-28 | XMS | Encounter Summary ---
Demographics + + + | Address | [address] | | | [place] [address] | + + + | Home Phone [...] Providers + +------+ + | Care Access Manager Name | Role | Phone | [...] [address] | | | | | [place], | [place], | | | | | [place] [address] | [place] [address] | | | | | [phone] | [phone] | | | | | | | [...] | | | | | | [place] [address] | | | | | | [phone] | | | | | | | | +--------+---------+ + + + documented as of this encounter Visit Diagnoses Not on filedocumented in this encounter"
--- OUTSIDE RECORDS SUMMARY | ~2019-02-28 | XMS | Encounter Summary ---
Demographics + + + | Address | [address] | | | [place] [address] | + + + | Home Phone [...] Providers + +------+ + | Care Statistical Clerk Name | Role | Phone [...] Alonso MD | | | | | [place], | | | | | | [place] [address] | | | | | | [phone] | | | +--------+--------+ + + + [...] [place] | | | | | | [address] | | | | | | | | +--------+---------+ + + + | 11/24/ | Office | Cardiology | [place], | | | 2019 | Visit | | SINDHU Erickson [address] | | | | | | [place] | | | | | | [place] [address] | | | | | | [phone] | | | | | | | | +--------+---------+ + + + documented as of this encounter Visit Diagnoses Not on filedocumented in this encounter"
--- OUTSIDE RECORDS SUMMARY | ~2019-02-28 | XMS | Encounter Summary ---
Demographics + + + | Address | [address] | | | [place] [address] | + + + | Home Phone [...] Team Providers + +------+ + | Care Thermal Molder Name | Role | Phone | + +------+ + | Juan Cherry DO | PCP | | + +------+ + Encounter Details +--------+ + + + + | Date | Type | Department | Care Team | Description | +--------+ + + + + | 11/05/ | Hospital | [facility] | Shashi Segovia | Pituitary mass (HCC) | | 2013 | Encounter | [facility] | MD Miryam Need updated | | | | | [address] | address | | | | | [place] | | | | | | [address] | | | | | | [phone] | | | +--------+ + + + [...] | | | | | [facility]. | | | | | | [...] [place] | | | | | | [address] | | | | | | | | +--------+---------+ + + + | 11/24/ | Office | Cardiology | Flores, | | | 2019 | Visit | | SINDHU Erickson [address] | | | | | | [place], | | | | | | [place] [address] | | | | | | [phone] | | | | | | | [...] [place] | | | | | | [address] | | | | + + + [...] [address] | [place] [address] | [phone] | + + + + + Insulin-Like [...] | | | | | [place] [address] | | | | + + + + + + + + | Specimen | + + | Blood specimen | | (specimen) | + + + + + + + | Performing | Address | City/State/Zipcode | Phone Number | | Organization | | | | + + + + + | [facility] | [address] | [place] [address] | [phone] | + + + + + Prolactin [...] [place] | | | | | | [address] | | | | + + + [...] [address] | [place] [address] | [phone] | + + + + + documented in this encounter Visit Diagnoses + + | Diagnosis | + + | Pituitary mass (HCC) Unspecified disorder of the pituitary gland and its hypothalamic | | control | + + documented in this encounter"
--- OUTSIDE RECORDS SUMMARY | ~2019-02-28 | XMS | Encounter Summary ---
Demographics + + + | Address | [address] | | | [place] [address] | + + + | Home Phone [...] Team Providers + +------+ + | Care Side Sawyer Name | Role | Phone | [...] | | [place] | [facility] | | | | | [address] | [place] [address] | | | | | [phone] | [phone] | | | | | | | [...] [place] | | | | | | [address] | | | | | | | | +--------+---------+ + + + | 11/24/ | Office | Cardiology | Flores, | | | 2019 | Visit | | SINDHU Erickson [address] | | | | | | [place], | | | | | | [place] [address] | | | | | | [phone] | | | | | | | | +--------+---------+ + + + documented as of this encounter Visit Diagnoses Not on filedocumented in this encounter"
--- OUTSIDE RECORDS SUMMARY | ~2019-02-28 | XMS | Encounter Summary ---
Demographics + + + | Address | [address] | | | [place] [address] | + + + | Home Phone [...] Team Providers + +------+ + | Care Siderographist Name | Role | Phone | + [...] + + | 11/06/ | Clinical | [facility] | Andriy Weber | Interstitial | | 2016 | Support | [address] | MD Robert [address] | cystitis (Primary | | | | [place] | [address] | Dx) | | | | [address] | [place] [address] | | | | | [phone] | [phone] | | | | | | | [...] Action Dose Route Administered By 11/07/2015 Given 36067 Units Subcutaneous Nancy Dalal CMA lidocaine 2% [...] | | | [place], [place] | | | | | | [address] | | | | | | | | +--------+---------+ + + + | 11/24/ | Office | Cardiology | Flores, | | | 2019 | Visit | | SINDHU Erickson [address] | | | | | | [place], | | | | | | [place] [address] | | | | | | [phone] | | | | | | | [...] 1.001 - 1.030 | | | | Excel, | | | | | | UA, [...]
--- OUTSIDE RECORDS SUMMARY | ~2019-02-28 | XMS | Encounter Summary ---
Demographics + + + | Address | [address] | | | [place] [address] | + + + | Home Phone [...] Team Providers + +------+ + | Care Biomedical Analytical Scientist Name | Role | Phone | [...] + + | 11/04/ | Office | [facility] | Daryl Hargrove | Axillary abscess | | 2015 | Visit | CARE [address] | Ernie Sanabria MD | (Primary Dx) | | | | [place], [place] | [address] | | | | | [address] | [place] [facility] [place] | | | | | [phone] | [address] | | | | | [...] | | | | | | [place] [address] | | | | | | [phone] | | | | | | | [...] [address] | [place] | [phone] | | [facility] | | [address] | | | - LABORATORY | | | | + + + + + documented in this encounter Visit Diagnoses + + | Diagnosis | + + | Axillary abscess - Primary Cellulitis and abscess of upper arm and forearm | + + documented in this encounter
--- OUTSIDE RECORDS SUMMARY | ~2019-02-28 | XMS | Encounter Summary ---
Demographics + + + | Address | [address] | | | [place] [address] | + + + | Home Phone [...] Providers + +------+ + | Care Supervisor Respiratory Name | Role | Phone | + +------+ + | Juan Cherry DO | PCP | | + +------+ + Encounter Details +--------+ + + + + | Date | Type | Department | Care Team | Description | +--------+ + + + + | 02/21/ | Abstract | [facility] [place] | Flores, | | | 2013 | | CARDIOLOGY [address] | SINDHU Erickson [address] | | | | | [place], | [place], | | | | | [place] [address] | [place] [address] | | | | | [phone] | [phone] | | | | | | | [...] [place] | | | | | | [address] | | | | | | | | +--------+---------+ + + + | 11/24/ | Office | Cardiology | Flores, | | | 2019 | Visit | | SINDHU Erickson [address] | | | | | | [place] | | | | | | [place] [address] | | | | | | [phone] | | | | | | | | +--------+---------+ + + + documented as of this encounter Visit Diagnoses Not on filedocumented in this encounter"
--- OUTSIDE RECORDS SUMMARY | ~2019-02-28 | XMS | Encounter Summary ---
Demographics + + + | Address | [address] | | | [place] [address] | + + + | Home Phone [...] Providers + +------+ + | Care Technical Translator Name | Role | Phone | + [...] + + | 04/13/ | Emergency | [facility] | Alverto Tyler, | Abdominal pain, | | 2016 | | [facility] CTR EM[facility]Y | [address] | acute, epigastric | | | | CENTER [address] | [place] | (Primary Dx) | | | | [place] | [address] | | | | | [address] | | | | | | [phone] | Ozzy Louis | | | | | | MD Julio [address] | | | | | | [place] | | | | | | [address] | | | | | | [phone] | | | | | | | | | | | | Nestor Martinez MD | | | | | | [address] | | | | | | [place] | | | | | | [id number] | | | | | | | [...] [place] | | | | | | [address] | | | | | | | | +--------+---------+ + + + | 11/24/ | Office | Cardiology | Flores, | | | 2020 | Visit | | SINDHU Erickson [address] | | | | | | [place], | | | | | | [place] [address] | | | | | | [phone] | | | | | | | [...] + | [address] | [address] | [place], [place] | [phone] | | [facility] | | [address] | | | - LABORATORY | | [...] | | | FILTRATION | mL/min/1.73m2 | [facility] | | | [place] | RATE,ESTIMATED | | MEDICAL | | | | mL/min/1.25x3Mmrl than | | CENTER - | | [...] | | | | | mg/dL | [facility] | | | | | [...] ST. | [address] | [place], [place] | [phone] | | [facility] | | [address] | | | - LABORATORY | | [...]
--- OUTSIDE RECORDS SUMMARY | ~2019-02-28 | XMS | Encounter Summary ---
Demographics + + + | Address | [address] | | | [place] [address] | + + + | Home Phone [...] Team Providers + +------+ + | Care Primary Operator Name | Role | Phone | [...] | | | [place], [place] | [place] [address] | | | | | | [address] | Phone: | | | | | | Phone: | [phone] | | | | | | [phone] | Fax: | | | | | | Fax: | [phone] | | | | | | [phone] | | +--------+ + + + + [...] | cystitis (Primary | | | | [place], [place] | [address] [place] | Dx) | | | | [address] | [place] [address] | | | | | [phone] | [phone] | | | | | | | [...] [place] | | | | | | [address] | | | | | | | | +--------+---------+ + + + | 11/24/ | Office | Cardiology | Flores, | | | 2020 | Visit | | SINDHU Erickson [address] | | | | | | [place], | | | | | | [place] [address] | | | | | | [phone] | | | | | | | [...]
--- OUTSIDE RECORDS SUMMARY | ~2019-02-28 | XMS | Encounter Summary ---
Demographics + + + | Address | [address] | | | [place] [address] | + + + | Home Phone [...] Providers + +------+ + | Care Manager Inventory Management Name | Role | Phone | [...] | Concussion | Aaron Kim MD | Examination Supervisor [address] | | | Required | | with brief | [address] | [place] | | | | | loss of | [address] | [place], [place] | | | | | consciousnes | [place], | [address] | | | | | s Word | [place] [address] | Phone: | | | | | finding | Phone: | [phone] | | | | | difficulty | [phone] | Fax: | | | | | [phone] | Fax: | [phone] | | | | | (ICD-10-CM) | [phone] | | | | | | - [...] + + | 05/16/ | Hospital | [facility] | Aaron Rodriguez, | Concussion with | | 2017 | Encounter | [facility] | MD [address] | brief (less than one | | | | THERAPY [address] | [place] | hour) loss of | | | | [place], | [address] | consciousness | | | | [place] [address] | | (Primary Dx); | | | | [phone] | Kathi Soto, | Impaired memory; | [...] | 0 | 10/13/19 | | | Gqmhwxzics-LSEF-Jgoy | mouth as needed. | | | 16 | 7 | | -Cod [id number] MG | | | | | | [...] Speech Pathologist - 05/16/2016 10:30 AM PDT [facility] SPEECH THERAPY [address] [facility] [address] Speech Therapy Initial Assessment Date: 05/16/2016 Patient Information Patient Name: Rosario Malik Date of : 1965 Age: 51 y.o. History No problems updated. Mechanism of injury: Trauma- Concussion with brief loss of consciousness on 03/15/16. Previous level of function and limitations: Problems with memory prior to concussion [facility] in December of 2015, forgetting names, forgetting appointments,difficulty recalling words , and during conversation difficulty staying on track. 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 [employer] Social History Main Topics Smoking status: [...] [facility]) 10/28/2012 Overview: Managed by [facility] along with hypothyroidism Osteoarthritis Tachycardia Asthma Emphysema Migraine Sleep apnea uses BiPAP Oxygen dependent uses 2.5 liters most of the time Past Surgical History Procedure Laterality Date Hammer toe surgery right sided Hiatal hernia repair Hiatal hernia Kirk and bso Ovarian cysts, not cancer Colonoscopy 03/2010 Colonoscopy 1995 [facility] Knee surgery right Wrist surgery right Hysterectomy Other surgical history 02/28/2014 [facility] with Radial approach; Laterality: Left; Surgeon: Jared Mcdonough MD; Location[facility] Tonsillectomy Age 6 Turbt N/A 11/22/2015 Procedure: Cystoscopy, Hydrodistention & Bladder Biopsy; Surgeon: Juan Melendez; Location: [facility] Hernia repair 11/29/2015 [facility] Family History Problem Relation Age of [...] the mean for immediate and delayed memory. FINISHING MACHINE OPERATOR G-Codes Functional Assessment Tool Used: NOMS [...] From: 05/16/2016 Certification To: 08/16/2016 Treatment Plan/Interventions 33883 - Cognitive [id number] - Cognitive [id number] - Speech/Hearing Treatment Patient and/or family has [...] [place] | | | | | | [address] | | | | | | | | +--------+---------+ + + + | 11/24/ | Office | Cardiology | Flores, | | | 2019 | Visit | | SINDHU Erickson [address] | | | | | | [place], | | | | | | [place] [address] | | | | | | [phone] | | | | | | | [...]
--- OUTSIDE RECORDS SUMMARY | ~2019-02-28 | XMS | Encounter Summary ---
Demographics + + + | Address | [address] | | | [place] [address] | + + + | Home Phone [...] Providers + +------+ + | Care Mechanical Field Engineer Name | Role | Phone [...] + + | 05/30/ | Office | [facility] | Jamaledgardo Jared, | Chronic obstructive | | 2017 | Visit | [facility] | MD Migdalia King | pulmonary disease, | | | | REHABILITATION [address], | unspecified COPD | | | | [address] [place] | [place] [address] | type (HCC) (Primary | | | | [place] [address] | [phone] | Dx); Pulmonary | | | | [phone] | | emphysema, | | | | [...] Desean Chris - 05/30/2016 3:38 PM PDT [facility] CARDIAC REHABILITATION [address] [place] [address] Cardiac Rehab Date: 05/30/2016 Patient Information Patient [...] | | | | [place] | | | | | | [address] | | | | | | | | +--------+---------+ + + + | 11/24/ | Office | Cardiology | Flores, | | | 2019 | Visit | | SINDHU Erickson [address] | | | | | | [place], | | | | | | [place] [address] | | | | | | [phone] | | | | | | | | +--------+---------+ + + + documented as of this encounter Visit Diagnoses + + | Diagnosis | + + | Chronic obstructive pulmonary disease, unspecified COPD type (HCC) - Primary | + + | Pulmonary emphysema, unspecified emphysema type (HCC) | + + documented in this encounter"
--- OUTSIDE RECORDS SUMMARY | ~2019-02-28 | XMS | Encounter Summary ---
Demographics + + + | Address | [address] | | | [place] [address] | + + + | Home Phone [...] Providers + +------+ + | Care Financial Compliance Officer Name | Role | Phone | [...] | | | | pulmonary | [address] | [address] | | | | | disease, | [place], | [place] | | | | | unspecified | [place] [address] | [place], [place] | | | | | COPD type | Phone: | [address] | | | | | (HCC) | [phone] | Phone: | | | | | Pulmonary | Fax: | [phone] | | | | | emphysema, | [phone] | Fax: | | | | | unspecified | | [phone] | | | | | emphysema | | | | | | | type ([facility]) | | | +--------+ + + + + + Encounter Details +--------+ + + + + | Date | Type | Department | Care Team | Description | +--------+ + + + + | 04/03/ | Orders Only | [facility] [place] | JamaledgardoJared, | Chronic obstructive | | 2017 | | CARDIOLOGY [address] | [address] [place] | pulmonary disease, | | | | [place], | [place], | unspecified COPD | | | | [place] [address] | [place] [address] | type (HCC) (Primary | | | | [phone] | [phone] | Dx); Pulmonary | | | | [...] [place] | | | | | | [address] | | | | | | | | +--------+---------+ + + + | 11/24/ | Office | Cardiology | Flores, | | | 2019 | Visit | | SINDHU Erickson [address] | | | | | | [place], | | | | | | [place] [address] | | | | | | [phone] | | | | | | | [...]
--- OUTSIDE RECORDS SUMMARY | ~2019-02-28 | XMS | Encounter Summary ---
Demographics + + + | Address | [address] | | | [place] [address] | + + + | Home Phone [...] Providers + +------+ + | Care Contact Lens Lathe Operator Name | Role | Phone [...] | RN | | | | | L[place]ie [place], | | | | | | [place] [address] | | | | | | [phone] | | | +--------+ + + + [...] | | | | [place] | | | | | | [address] | | | | | | | | +--------+---------+ + + + | 11/24/ | Office | Cardiology | [place], | | | 2019 | Visit | | SINDHU Erickson [address] | | | | | | [place], | | | | | | [place] [address] | | | | | | [phone] | | | | | | | | +--------+---------+ + + + documented as of this encounter Visit Diagnoses Not on filedocumented in this encounter"
--- OUTSIDE RECORDS SUMMARY | ~2019-02-28 | XMS | Encounter Summary ---
Demographics + + + | Address | [address] | | | [place] [address] | + + + | Home Phone [...] Providers + +------+ + | Care Pharmacy Order Entry Technician Name | Role | Phone | [...] + + | 09/07/ | Office | [facility] [place] | Offenstein, | COPD exacerbation | | 2012 | Visit | PULMONARY [address] | Loreta Alonso MD | ([facility]) (Primary Dx); | | | | [place], | | Sleep apnea; | | | | [place] [address] | | Allergic rhinitis; | | | | [phone] | | Insomnia | +--------+---------+ + + [...] still having dizziness, let Dr. Cherry know. Brine Purifier at [facility]: Ruben Tucker MD documented in this encounter Progress Notes Loreta London MD - 09/07/2012 10:42 AM PDTFormatting of this note might be differe nt from the original. Sleep Follow Up MD [place] [facility]monary [facility] [address] [place], [address] [facility] Rosario Malik is a 47 y.o. female [...] planning on her d ad driving to [place]. 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 CC: Juan Cherry Portions of this report were transcribed using voice recognition software. Every effort wa s made to ensure accuracy; however, inadvertent computerized credit professional errors may be pre sent. documented in [...] | | | | | | [place], | | | | | | [place] [address] | | | | | | [phone] | | | | | | | [...]
--- OUTSIDE RECORDS SUMMARY | ~2019-02-28 | XMS | Encounter Summary ---
Demographics + + + | Address | [address] | | | [place] [address] | + + + | Home Phone [...] Providers + +------+ + | Care Customs House Broker Name | Role | Phone | [...] + + | 09/09/ | Emergency | [facility] | Guru Cárdenas, | Epigastric pain | | 2017 | | [facility] EM[facility] | MD [address] | (Primary Dx) | | | | CENTER [address] | [facility] [place] | | | | | [place] | [place] [address] | | | | | [address] | [phone] | | | | | [phone] | | | +--------+ + + + [...] be sent through Care Everywhere.GASTRITIS (ADUL T) (QATARI)documented in this encounter Medications at Time of [...] | 0 | 10/13/19 | | | Tzcwifbpzr-ELVR-Wsao | mouth as needed. | | | 16 | 7 | | -Cod [id number] MG | | | | | | [...] [place] | | | | | | [address] | | | | | | | | +--------+---------+ + + + | 11/24/ | Office | Cardiology | Flores, | | | 2019 | Visit | | SINDHU Erickson [address] | | | | | | [place], | | | | | | [place] [address] | | | | | | [phone] | | | | | | | [...] W?MRN: | | | | | | [id number] | | | [id number] | | | his | | | [...] ST. | [address] | [place] | [phone] | | [facility] | | [address] | | | - LABORATORY | | [...] mL/min/1.73m2 | [facility] | | | [place] | RATE,ESTIMATED | | MEDICAL | | | | mL/min/1.67s9Lecx than | | CENTER - | | [...] Ratio | appended report. These | | [facility] | | | | results have been [...] [address] | [place] | [phone] | | [facility] | | [address] | | | [...] + | [facility] | [address] | [place] | [phone] | | [facility] | | [address] | | | - LABORATORY | | [...] - 1.030 | [facility] | | | [place] | | | [facility] | | [...] [address] | [place] | [phone] | | [facility] | | [address] | | | - LABORATORY | | [...] | | | | | | [facility] | | | | | | [...] [address] | [place] | [phone] | | [facility] | | [address] | | | - LABORATORY | | [...] ST. | [address] | [place], [place] | [phone] | | [facility] | | [address] | | | - LABORATORY | | [...] [address] | [place] | [phone] | | [facility] | | [address] | | | - LABORATORY | | [...] [address] | [place] | [phone] | | [facility] | | [address] | | | - LABORATORY | | [...] ST. | [address] | [place], [place] | [phone] | | [facility] | | [address] | | | - LABORATORY | | [...]
--- OUTSIDE RECORDS SUMMARY | ~2019-02-28 | XMS | Encounter Summary ---
Demographics + + + | Address | [address] | | | [place] [address] | + + + | Home Phone [...] Team Providers + +------+ + | Care Nephrology Nurse Name | Role | Phone | + +------+ + | Juan Cherry DO | PCP | | + +------+ + Encounter Details +--------+ + + + + | Date | Type | Department | Care Team | Description | +--------+ + + + + | 08/30/ | Hospital | [facility] | Yecenia Gallegos | | | 2012 | Encounter | MED CTR EMERGENCY | Yinka Aguirre MD [address] | | | | | CENTER [address] | [facility] | | | | | [place], [place] | [place] [address] | | | | | [address] | [phone] | | | | | [phone] | | | +--------+ + + + [...] [place] | | | | | | [address] | | | | | | | | +--------+---------+ + + + | 11/24/ | Office | Cardiology | [place], | | | 2019 | Visit | | SINDHU Erickson [address] | | | | | | [place], | | | | | | [place] [address] | | | | | | [phone] | | | | | | | | +--------+---------+ + + + documented as of this encounter Visit Diagnoses Not on filedocumented in this encounter"
--- OUTSIDE RECORDS SUMMARY | ~2019-02-28 | XMS | Encounter Summary ---
Demographics + + + | Address | [address] | | | [place] [address] | + + + | Home Phone [...] Team Providers + +------+ + | Care Academy Education Director Name | Role | Phone | [...] on | MED CTR THERAPY PT | PRODUCTION MACHINIST [address] | | | | | OP [address] | [place], [place] | | | | | [place], [place] | [address] | | | | | [address] | [phone] | | | | | [phone] | | | +--------+ + + + [...] of this encounter Progress Notes Janey Low, PRODUCTION MACHINIST - 06/02/2013 9:39 AM [facility] OP [address] [place] [address] Cancellation/No Show Date: 06/02/2013 Patient Information Patient [...] [place] | | | | | | [id number] | | | | | | | | +--------+---------+ + + + | 11/24/ | Office | Cardiology | [place] | | | 2019 | Visit | | SINDHU Erickson [address] | | | | | | [place], | | | | | | [place] [address] | | | | | | [phone] | | | | | | | | +--------+---------+ + + + documented as of this encounter Visit Diagnoses Not on filedocumented in this encounter"
--- OUTSIDE RECORDS SUMMARY | ~2019-02-28 | XMS | Encounter Summary ---
Demographics + + + | Address | [address] | | | [place] [address] | + + + | Home Phone [...] Team Providers + +------+ + | Care Planer Off Bearer Name | Role | Phone | + +------+ + | Juan Cherry DO | PCP | | + +------+ + Encounter Details +--------+ + + + + | Date | Type | Department | Care Team | Description | +--------+ + + + + | 02/21/ | Abstract | [facility] [place] | [place], | | | 2013 | | CARDIOLOGY [address] | SINDHU Erickson [address] | | | | | [place], | [place], | | | | | [place] [address] | [place] [address] | | | | | [phone] | [phone] | | | | | | | [...] [place] | | | | | | [address] | | | | | | | | +--------+---------+ + + + | 11/24/ | Office | Cardiology | [place], | | | 2019 | Visit | | SINDHU Erickson [address] | | | | | | [place] | | | | | | [place] [address] | | | | | | [phone] | | | | | | | | +--------+---------+ + + + documented as of this encounter Visit Diagnoses Not on filedocumented in this encounter"
--- OUTSIDE RECORDS SUMMARY | ~2019-02-28 | XMS | Encounter Summary ---
Demographics + + + | Address | [address] | | | [place] [address] | + + + | Home Phone [...] Providers + +------+ + | Care Manager Roofing Name | Role | Phone | + [...] on | MED CTR THERAPY PT | COMPOUNDING AND FINISHING SUPERVISOR [address] | | | | | OP [address] | [place], [place] | | | | | [place], [place] | [address] | | | | | [address] | [phone] | | | | | [phone] | | | +--------+ + + + [...] of this encounter Progress Notes Janey Low, COMPOUNDING AND FINISHING SUPERVISOR - 05/18/2013 9[facility] [address] [place] [address] Cancellation/No Show Date: 05/18/2013 Patient Information Patient [...] | | | | | | [place] [address] | | | | | | [phone] | | | | | | | | +--------+---------+ + + + documented as of this encounter Visit Diagnoses Not on filedocumented in this encounter"
--- OUTSIDE RECORDS SUMMARY | ~2019-02-28 | XMS | Encounter Summary ---
Demographics + + + | Address | [address] | | | [place] [address] | + + + | Home Phone [...] Providers + +------+ + | Care Security Clerk Name | Role | Phone | + +------+ + | Juan Cherry DO | PCP | | + +------+ + Encounter Details +--------+ + + + + | Date | Type | Department | Care Team | Description | +--------+ + + + + | 11/14/ | Abstract | [facility] | Jared Mcdonough, | | | 2014 | | CARDIOLOGY [address] | MD [address] [place] | | | | | [place], | [place], | | | | | [place] [address] | [place] [address] | | | | | [phone] | [phone] | | | | | | | [...] [place] | | | | | | [address] | | | | | | | | +--------+---------+ + + + | 11/24/ | Office | Cardiology | Flores, | | | 2019 | Visit | | SINDHU Erickson [address] | | | | | | [place], | | | | | | [place] [address] | | | | | | [phone] | | | | | | | [...]
--- OUTSIDE RECORDS SUMMARY | ~2019-02-28 | XMS | Encounter Summary ---
Demographics + + + | Address | [address] | | | [place] [address] | + + + | Home Phone [...] Providers + +------+ + | Care Strategic Development Manager Name | Role | Phone [...] | Concussion | Aaron Kim MD | Window Shade Estimator [address] | | | Required | | with brief | [address] | [place] | | | | | loss of | [address] | [place], [place] | | | | | consciousnes | [place], | [address] | | | | | s Word | [place] [address] | Phone: | | | | | finding | Phone: | [phone] | | | | | difficulty | [phone] | Fax: | | | | | [id number] | Fax: | [phone] | | | | | (ICD-10-CM) | [phone] | | | | | | - [...] + + | 06/20/ | Hospital | [facility] | Aaron Rodriguez, | Impaired memory | | 2017 | Encounter | MED CTR SPEECH | MD [address] | (Primary Dx); | | | | THERAPY [address] | [place] | Concussion with | | | | [place], | [address] | brief (less than one | | | | [place] [address] | | hour) loss of | | | | [phone] | Kathi Soto, | consciousness; | | [...] | 0 | 10/13/19 | | | Cvhbsansld-PJKW-Ztpw | mouth as needed. | | | 16 | 7 | | -Cod [id number] MG | | | | | | [...] Speech Pathologist - 06/21/2016 1:45 PM PDT [facility] SPEECH THERAPY [address] [facility] [address] Speech Therapy Daily Treatment Note Date: 06/20/2016 Patient Information Patient Name: Rosario Malik Date of : 1965 Age: 51 y.o. Encounter Diagnoses Code Name Primary? R41.3 Impaired memory Yes S06.0X9A Concussion with brief (less than one hour) loss of consciousness R41.842 Visuospatial deficit R47.89 Word finding difficulty Date of Onset: 03/15/2016 Referring Provider: Aaron Rodriguez MD Rehab Precautions Office Visit from 05/01/2016 in [facility] THERAPY PT OP Rehab Precautions Precautions None Rehab Learning Style [facility] RADIO TELEVISION ANNOUNCER OP EVAL from 05/16/2016 in [facility] SPEECH THERAPY Office V isit from 05/01/2016 [facility] [...] [place] | | | | | | [address] | | | | | | | | +--------+---------+ + + + | 11/24/ | Office | Cardiology | [place], | | | 2019 | Visit | | SINDHU Erickson [address] | | | | | | [place], | | | | | | [place] [address] | | | | | | [phone] | | | | | | | [...]
--- OUTSIDE RECORDS SUMMARY | ~2019-02-28 | XMS | Encounter Summary ---
Demographics + + + | Address | [address] | | | [place] [address] | + + + | Home Phone [...] Providers + +------+ + | Care Metal Drill Operator Name | Role | Phone [...] + + | 04/27/ | Office | [facility] | Offenstein, | COPD (chronic | | 2013 | Visit | PULMONARY [address] | Loreta Alonso MD | obstructive | | | | [place], | | pulmonary disease) | | | | [place] [address] | | (Primary Dx); [place] | | | | [phone] | | (obstructive sleep | | | [...] [facility] [address] [place], [address] HPI Rosario Malik is a 48 y.o. [...] us as she had to go to [place] for evaluati on, but then apparently did [...] Colonoscopy 03/2010 Colonoscopy 1995 [facility] Social History: History Social History Marital Status: Single Spouse Name: N/A Number of Children: 1 Years of Education: 13 Occupational History [employer] Social History Main Topics Smoking status: [...] months 1 each 99 Respiratory Therapy [facility] Please provide patient with necessary CPAP supplies [...] Data: CPAP Data: Dates: 03/12/13-04/10/13 Machine type: SmartKickz S9 auto set Home Health Company: [employer] CPAP Pressure: 11-14 cmH2O Median Titrated Pressure: [...] made to ensure accuracy; however, inadvertent computerized public relations director errors may be pre sent. documented in t his encounter Plan of Treatment +--------+---------+ + + + | Date | Type | Specialty | Care Team | Description | +--------+---------+ + + + | 03/31/ | Office | Pulmonology | Mukul Clark MD | | | 2019 | Visit | | [address] | | | | | | [place] | | | | | | [address] | | | | | | | | +--------+---------+ + + + | 11/24/ | Office | Cardiology | [place], | | | 2019 | Visit | | SINDHU Erickson [address] | | | | | | [place], | | | | | | [place] [address] | | | | | | [phone] | | | | | | | [...]
--- OUTSIDE RECORDS SUMMARY | ~2019-02-28 | XMS | Encounter Summary ---
Demographics + + + | Address | [address] | | | [place] [address] | + + + | Home Phone [...] [address] | | | | | [place], | [place], | | | | | [place] [address] | [place] [address] | | | | | [phone] | [phone] | | | | | | | [...] | | | | [place], [place] | | | | | | [address] | | | | | | | | +--------+---------+ + + + | 11/24/ | Office | Cardiology | [place], | | | 2019 | Visit | | SINDHU Erickson [address] | | | | | | [place], | | | | | | [place] [address] | | | | | | [phone] | | | | | | | [...]
--- OUTSIDE RECORDS SUMMARY | ~2019-02-28 | XMS | Encounter Summary ---
Demographics + + + | Address | [address] | | | [place] [address] | + + + | Home Phone [...] Providers + +------+ + | Care Tile Mechanic Helper Name | Role | Phone | [...] MD | symptoms) | | | | [place], | | | | | | [place] [address] | | | | | | [phone] | | | +--------+ + + + [...] [address] | | | | | | [place] | | | | | | [address] | | | | | | | | +--------+---------+ + + + | 11/24/ | Office | Cardiology | [place], | | | 2019 | Visit | | SINDHU Erickson [address] | | | | | | [place], | | | | | | [place] [address] | | | | | | [phone] | | | | | | | | +--------+---------+ + + + documented as of this encounter Visit Diagnoses Not on filedocumented in this encounter"
--- OUTSIDE RECORDS SUMMARY | ~2019-02-28 | XMS | Encounter Summary ---
Demographics + + + | Address | [address] | | | [place] [address] | + + + | Home Phone [...] Team Providers + +------+ + | Care Environment Friendly Landscape Designer Name | Role | Phone | + +------+ + | Juan Cherry DO | PCP | | + +------+ + Encounter Details +--------+---------+ + + + | Date | Type | Department | Care Team | Description | +--------+---------+ + + + | 06/06/ | Office | [facility] | Jared Mcdonough, | Chronic obstructive | | 2017 | Visit | MED CTR CARDIAC | [address] [place] | pulmonary disease, | | | | REHABILITATION [address] | [place], | unspecified COPD | | | | [address] [place] | [place] [address] | type (HCC) (Primary | | | | [place] [address] | [phone] | Dx); Pulmonary | | | | [phone] | | emphysema, | | | | [...] Desean Wheeler - 06/06/2016 3:12 PM PDT [facility] CARDIAC REHABILITATION [address] [facility] [address] Cardiac Rehab Date: 06/06/2016 Patient Information Patient [...] | | | | [place] | | | | | | [address] | | | | | | | | +--------+---------+ + + + | 10/01/ | Office | Cardiology | [place], | | | 2019 | Visit | | SINDHU Erickson [address] | | | | | | [place], | | | | | | [place] [address] | | | | | | [phone] | | | | | | | | +--------+---------+ + + + documented as of this encounter Visit Diagnoses + + | Diagnosis | + + | Chronic obstructive pulmonary disease, unspecified COPD type (HCC) - Primary | + + | Pulmonary emphysema, unspecified emphysema type (HCC) | + + documented in this encounter"
--- OUTSIDE RECORDS SUMMARY | ~2019-02-28 | XMS | Encounter Summary ---
Demographics + + + | Address | [address] | | | [place] [address] | + + + | Home Phone [...] | Specialty | Rehabilitatio | Diagnoses | Rodriguze, | [facility] | | | Services | n | Concussion | Aaron Kim MD | Shirt Sorter [address] | | | Required | | with brief | [address] | [place] | | | | | loss of | [address] | [place], [place] | | | | | consciousnes | [place], | [address] | | | | | s Word | [place] [address] | Phone: | | | | | finding | Phone: | [phone] | | | | | difficulty | [phone] | Fax: | | | | | S06.0X9A | Fax: | [phone] | | | | | (ICD-10-CM) | [phone] | | | | | | - [...] + + | 09/17/ | Hospital | [facility] | Aaron Rodriguez, | Word finding | | 2017 | Encounter | MED CTR SPEECH | MD [address] [facility] | difficulty (Primary | | | | THERAPY [address] | [place] | Dx); Impaired | | | | [place], | [address] | memory; Concussion | | | | [place] [address] | | with brief (less | | | | [phone] | Kathi Soto, | than one hour) [...] | | | | | [facility]. | | | | | | | [...] | 0 | 10/13/19 | | | Obrhhnerpu-MZLW-Ravf | mouth as needed. | | | 16 | 7 | | -Cod [id number] MG | | | | | | [...] Speech Pathologist - 09/19/2016 2:57 PM PDT [facility] SPEECH THERAPY [address] [place] [address] Speech Therapy Discharge Note Date: 09/17/2016 Patient Information Patient Name: Rosario Malik Date of : 1965 Age: 51 y.o. History Encounter Diagnoses Code Name Primary? R47.89 Word finding difficulty Yes R41.3 Impaired memory S06.0X9A Concussion with brief (less than one hour) loss of consciousness Date of Onset: 03/15/2016 Referring Provider: Aaron Rodriguez MD Rehab Precautions Flowsheet Row Office Visit from 05/01/2016 in [facility] THERAPY PT OP Rehab Precautions Precautions None Rehab Learning Style Flowsheet Row [facility] VOLCANOLOGY TEACHER OP EVAL from 05/16/2016 in [facility] SPEECH THERAPY O ffice Visit from 05/01/2016 in [facility] THERAPY PT OP Learning Style Patient's Optimum [...] re: these concerns. [facility]. At this time Rosario stat es [...] Patient Caregiver's Ability to Manage Condition: 4 VOLCANOLOGY TEACHER G-Codes Functional Assessment Tool Used: NOMS Score: [...] From: 08/16/2016 Certification To: 09/19/16 Treatment Plan/Interventions 51720 - Cognitive Agzpnte48624 - Cognitive [id number] - Speech/Hearing Treatment Patient and/or family has [...] | | Jose [facility] [place] | | | | | | [address] | | | | | | | | +--------+---------+ + + + | 11/24/ | Office | Cardiology | [place], | | | 2019 | Visit | | SINDHU Erickson [address] | | | | | | [place], | | | | | | [place] [address] | | | | | | [phone] | | | | | | | [...]
--- OUTSIDE RECORDS SUMMARY | ~2019-02-28 | XMS | Encounter Summary ---
Demographics + + + | Address | [address] | | | [place] [address] | + + + | Home Phone [...] Team Providers + +------+ + | Care Grab Setter Name | Role | Phone | + +------+ + PCP | Unavailable | + +------+ + Encounter Details +--------+ + + + + | Date | Type | Department | Care Team | Description | +--------+ + + + + | 07/25/ | Hospital | [facility] | [place], | | | 2010 | Encounter | MED CTR EMERGENCY | Ozzy Kim MD [address] | | | | | CENTER [address] | [address] | | | | | [place], [place] | [place] [address] | | | | | [address] | [phone] | | | | | [phone] | | | +--------+ + + + [...] | | | | [address] [facility] [place] | | | | | | [address] | | | | | | | | +--------+---------+ + + + | 11/24/ | Office | Cardiology | [place], | | | 2019 | Visit | | SINDHU Erickson [address] | | | | | | [place], | | | | | | [place] [address] | | | | | | [phone] | | | | | | | [...] - 1.030 | [facility] | | | Hiko | | | [facility] | | [...] + | [facility] | [address] | [place], [place] | [phone] | | [facility] | | [address] | | | - LABORATORY | | | | + + + + + | [facility] | [address] | [place] | | | [facility] | | [address] | | | - LABORATORY | | | | + + + + + documented in this encounter Visit Diagnoses Not on filedocumented in this encounter"
--- OUTSIDE RECORDS SUMMARY | ~2019-02-28 | XMS | Encounter Summary ---
Demographics + + + | Address | [address] | | | [place] [address] | + + + | Home Phone [...] Providers + +------+ + | Care Consumer Sales Representative Name | Role | Phone | + +------+ + | Juan Cherry DO | PCP | | + +------+ + Encounter Details +--------+ + + + + | Date | Type | Department | Care Team | Description | +--------+ + + + + | 09/09/ | Hospital | [facility] GENERIC IP | Conversion | Pain | | 2015 | Encounter | CONVERSION [address]P [address] | Transaction, | | | | | [address] | Provider Unknown | | | | | [place], [place] | [phone] | | | | | [address] | | | | | | [phone] | | | +--------+ + + + [...] | | | | [place] | | | | | | [address] | | | | | | | | +--------+---------+ + + + | 11/24/ | Office | Cardiology | [place], | | | 2019 | Visit | | SINDHU Erickson [address] | | | | | | [place], | | | | | | [place] [address] | | | | | | [phone] | | | | | | | [...]
--- OUTSIDE RECORDS SUMMARY | ~2019-02-28 | XMS | Encounter Summary ---
Demographics + + + | Address | [address] | | | [place] [address] | + + + | Home Phone [...] Providers + +------+ + | Care Travel Manager Name | Role | Phone | [...] [address] | | | | | [place], | [place], | | | | | [place] [address] | [place] [address] | | | | | [phone] | [phone] | | | | | | | [...] | | | | [place] [address] [place], [place] | | | | | | [address] | | | | | | | | +--------+---------+ + + + | 11/24/ | Office | Cardiology | [place], | | | 2019 | Visit | | SINDHU Erickson [address] | | | | | | [place], | | | | | | [place] [address] | | | | | | [phone] | | | | | | | [...]
--- OUTSIDE RECORDS SUMMARY | ~2019-02-28 | XMS | Encounter Summary ---
Demographics + + + | Address | [address] | | | [place] [address] | + + + | Home Phone [...] Providers + +------+ + | Care Retail Wireless Sales Representative Name | Role | Phone | + +------+ + | Ozzy Delcid MD | PCP | | + +------+ + Encounter Details +--------+ + + + + | Date | Type | Department | Care Team | Description | +--------+ + + + + | 09/16/ | Hospital | [facility] | Yecenia Gallegos | | | 2011 | Encounter | MED CTR EMERGENCY | Yinka Aguirre MD [address] | | | | | CENTER [address] | [facility] | | | | | [place] | [place] [address] | | | | | [address] | [phone] | | | | | [phone] | | | +--------+ + + + [...] | | | | | | [place] [address] | | | | | | [phone] | | | | | | | [...] ST. | [address] | [place], [place] | [phone] | | [facility] | | [address] | | | - LABORATORY | | | | + + + + + | [facility] | [address] | [place], [place] | | | [facility] | | [address] | | | - LABORATORY | | | | + + + + + documented in this encounter Visit Diagnoses Not on filedocumented in this encounter"
--- OUTSIDE RECORDS SUMMARY | ~2019-02-28 | XMS | Encounter Summary ---
Demographics + + + | Address | [address] | | | [place] [address] | + + + | Home Phone [...] Providers + +------+ + | Care Retail Coordinator Name | Role | Phone | [...] [address] | | | | | [place], | [place], | | | | | [place] [address] | [place] [address] | | | | | [phone] | [phone] | | | | | | | [...] [place] | | | | | | [address] | | | | | | | | +--------+---------+ + + + | 11/24/ | Office | Cardiology | [place], | | | 2019 | Visit | | SINDHU Erickson [address] | | | | | | [place], | | | | | | [place] [address] | | | | | | [phone] | | | | | | | | +--------+---------+ + + + documented as of this encounter Visit Diagnoses Not on filedocumented in this encounter"
--- OUTSIDE RECORDS SUMMARY | ~2019-02-28 | XMS | Encounter Summary ---
Demographics + + + | Address | [address] | | | [place] [address] | + + + | Home Phone [...] Providers + +------+ + | Care Supervisor Throwing Department Name | Role | Phone | [...] | 08/11/ | Telephone | [facility] [place] | Kevin Sandoval, | Other (decision to | | 2013 | | PULMONARY [address] | MD [address] | quit job) | | | | [place], | [place] | | | | | [place] [address] | [id number] | | | | | [phone] | | | +--------+ + + + [...] | | | | | | [place] [address] | | | | | | [phone] | | | | | | | | +--------+---------+ + + + documented as of this encounter Visit Diagnoses + + | Diagnosis | + + | Central sleep apnea Primary central sleep apnea | + + documented in this encounter"
--- OUTSIDE RECORDS SUMMARY | ~2019-02-28 | XMS | Encounter Summary ---
Demographics + + + | Address | [address] | | | [place] [address] | + + + | Home Phone [...] Providers + +------+ + | Care Jumpbasting Machine Operator Name | Role | Phone | + +------+ + PCP | Unavailable | + +------+ + Encounter Details +--------+ + + + + | Date | Type | Department | Care Team | Description | +--------+ + + + + | 01/29/ | Hospital | [facility] | Ozzy Delcid, | | | 2009 - | Encounter | MED CTR OP REHAB | MD [address] | | | | | [address] [place] | [place] | | | 02/23/ | | [place] [address] | [address] | | | 2009 | | [phone] | | | +--------+ + + + [...] [place] | | | | | | [address] | | | | | | | | +--------+---------+ + + + | 11/24/ | Office | Cardiology | [place], | | | 2019 | Visit | | SINDHU Erickson [address] | | | | | | [place], | | | | | | [place] [address] | | | | | | [phone] | | | | | | | | +--------+---------+ + + + documented as of this encounter Visit Diagnoses Not on filedocumented in this encounter"
--- OUTSIDE RECORDS SUMMARY | ~2019-02-28 | XMS | Encounter Summary ---
Demographics + + + | Address | [address] | | | [place] [address] | + + + | Home Phone [...] Providers + +------+ + | Care Coffee Supervisor Name | Role | Phone | [...] | Pulmonary | MD Mukul | [address] [place] | | | | | nodule | [address] | [place], | | | | | Procedures | [address] | [place] [address] | | | | | CT Chest wo | [place] | Phone: | | | | | Contrast | [place] | [phone] | | | | | | [address] | Fax: | | | | | | Phone: | [phone] | | | | | | [phone] | | | | | | | Fax: | | | | | | | [phone] | | +--------+--------+ + + + + [...] | Pulmonary | MD Mukul | [address] [place] | | | | | nodule | [address] | [place], | | | | | Procedures | [address] | [place] [address] | | | | | CT Chest wo | [place] | Phone: | | | | | Contrast | [place], [place] | [phone] | | | | | | [address] | Fax: | | | | | | Phone: | [phone] | | | | | | [phone] | | | | | | | Fax: | | | | | | | [phone] | | +--------+--------+ + + + + Encounter Details +--------+ + + + + | Date | Type | Department | Care Team | Description | +--------+ + + + + | 08/05/ | Hospital | [facility] | Mukul Clark MD | Pulmonary nodule | | 2018 | Encounter | MED CTR CT [address] | [address] | | | | | [place], | [place], [place] | | | | | [place] [address] | [address] | | | | | [phone] | | | +--------+ + + + [...] | | | | | | [place] [address] | | | | | | [phone] | | | | | | | [...] + + | Performing | Address | City/State/[facility] | Phone Number | | Organization | | | | + +---------+ + + | [facility] | | | | + +---------+ + + documented in this encounter Visit Diagnoses + + | Diagnosis | + + | Pulmonary nodule Solitary pulmonary nodule | + + documented in this encounter"
--- OUTSIDE RECORDS SUMMARY | ~2019-02-28 | XMS | Encounter Summary ---
Demographics + + + | Address | [address] | | | [place] [address] | + + + | Home Phone [...] Team Providers + +------+ + | Care Chucking Machine Set Up Operator Tool Name | Role | Phone | + +------+ + | Juan Cherry DO | PCP | | + +------+ + Encounter Details +--------+ + + + + | Date | Type | Department | Care Team | Description | +--------+ + + + + | 09/04/ | Orders Only | [facility] [place] | [place], | Paroxysmal atrial | | 2016 | | CARDIOLOGY [address] | Georgina CUSTOMER SOLUTIONS ARCHITECT [address] | tachycardia (HCC) | | | | [place], | [place], | | | | | [place] [address] | [place] [address] | | | | | [phone] | [phone] | | | | | | | [...] [place] | | | | | | [address] | | | | | | | | +--------+---------+ + + + | 11/24/ | Office | Cardiology | [place], | | | 2019 | Visit | | SINDHU Erickson [address] | | | | | | [place], | | | | | | [place] [address] | | | | | | [phone] | | | | | | | | +--------+---------+ + + + documented as of this encounter Visit Diagnoses + + | Diagnosis | + + | Paroxysmal atrial tachycardia (HCC) Paroxysmal supraventricular tachycardia | + + documented in this encounter"
--- OUTSIDE RECORDS SUMMARY | ~2019-02-28 | XMS | Encounter Summary ---
Demographics + + + | Address | [address] | | | [place] [address] | + + + | Home Phone [...] Providers + +------+ + | Care Solution Consultant Name | Role | Phone | + +------+ + PCP | Unavailable | + +------+ + Encounter Details +--------+ + + + + | Date | Type | Department | Care Team | Description | +--------+ + + + + | 10/27/ | [facility] | [facility] | | | | 2008 - | Encounter | MED CTR OP REHAB | | | | | | [address] [place] | | | | 11/23/ | | [place] [address] | | | | 2008 | | [phone] | | | +--------+ + + + [...] [place] | | | | | | [address] | | | | | | | | +--------+---------+ + + + | 11/24/ | Office | Cardiology | [place], | | | 2020 | Visit | | SINDHU Erickson [address] | | | | | | [place], | | | | | | [place] [address] | | | | | | [phone] | | | | | | | | +--------+---------+ + + + documented as of this encounter Visit Diagnoses Not on filedocumented in this encounter"
--- OUTSIDE RECORDS SUMMARY | ~2019-02-28 | XMS | Encounter Summary ---
Demographics + + + | Address | [address] | | | [place] [address] | + + + | Home Phone [...] Team Providers + +------+ + | Care Curatorial Specialist Name | Role | Phone | [...] | | | | [facility] | [address] | [address] | | | | | EXERCISE | [place], | [place] | | | | | | [place] [address] | [place], [place] | | | | | | Phone: | [phone] | | | | | | [phone] | Phone: | | | | | | Fax: | [phone] | | | | | | [phone] | Fax: | | | | | | | [phone] | +--------+--------+ + + + + Encounter Details +--------+---------+ + + + | Date | Type | Department | Care Team | Description | +--------+---------+ + + + | 08/01/ | Office | [facility] | Jared Mcdonough, | Chronic obstructive | | 2017 | Visit | MED CTR CARDIAC | MD [address] | pulmonary disease, | | | | REHABILITATION [address] [place], | unspecified COPD | | | | [address] [place] | [place] [address] | type (HCC) (Primary | | | | [place] [address] | [phone] | Dx); Mild persistent | | | | [phone] | | asthma without | | | [...] [place] | | | | | | [address] | | | | | | | | +--------+---------+ + + + | 11/24/ | Office | Cardiology | [place], | | | 2019 | Visit | | SINDHU Erickson [address] | | | | | | [place], | | | | | | [place] [address] | | | | | | [phone] | | | | | | | | +--------+---------+ + + + documented as of this encounter Visit Diagnoses + + | Diagnosis | + + | Chronic obstructive pulmonary disease, unspecified COPD type (HCC) - Primary | + + | Mild persistent asthma without complication Unspecified asthma | + + documented in this encounter"
--- OUTSIDE RECORDS SUMMARY | ~2019-02-28 | XMS | Encounter Summary ---
Demographics + + + | Address | [address] | | | [place] [address] | + + + | Home Phone [...] Team Providers + +------+ + | Care Concert Manager Name | Role | Phone | [...] | | | | [facility] | [address] | [address] | | | | | EXERCISE | [place], | [address] [place] | | | | | | [place] [address] | [place], [place] | | | | | | Phone: | [phone] | | | | | | [phone] | Phone: | | | | | | Fax: | [phone] | | | | | | [phone] | Fax: | | | | | | | [phone] | +--------+--------+ + + + + Encounter Details +--------+---------+ + + + | Date | Type | Department | Care Team | Description | +--------+---------+ + + + | 08/13/ | Office | [facility] | Jared Mcdonough, | Chronic obstructive | | 2017 | Visit | MED CTR CARDIAC | [address] | pulmonary disease, | | | | REHABILITATION [address] | [address] [place], | unspecified COPD | | | | [address] [place] | [place] [address] | type (HCC) (Primary | | | | [place] [address] | [phone] | Dx) | | | | [phone] | | | +--------+---------+ + + + [...] [place] | | | | | | [address] | | | | | | | | +--------+---------+ + + + | 11/24/ | Office | Cardiology | [place], | | | 2019 | Visit | | SIND[address] Ericks[address] | | | | | | [place], | | | | | | [place] [address] | | | | | | [phone] | | | | | | | | +--------+---------+ + + + documented as of this encounter Visit Diagnoses + + | Diagnosis | + + | Chronic obstructive pulmonary disease, unspecified COPD type (HCC) - Primary | + + documented in this encounter"
--- OUTSIDE RECORDS SUMMARY | ~2019-02-28 | XMS | Encounter Summary ---
Demographics + + + | Address | [address] | | | [place] [address] | + + + | Home Phone [...] Team Providers + +------+ + | Care Rug Sizer Name | Role | Phone | + +------+ + | Juan Cherry DO | PCP | | + +------+ + Encounter Details +--------+ + + + + | Date | Type | Department | Care Team | Description | +--------+ + + + + | 02/12/ | Hospital | [facility] | Nestor Martinez, | | | 2012 | Encounter | MED CTR EMERGENCY | MD [address] | | | | | CENTER [address] | [place], [place] | | | | | [place], [place] | [address] | | | | | [address] | | | | | | [phone] | | | +--------+ + + + [...] [place] | | | | | | [address] | | | | | | | | +--------+---------+ + + + | 11/24/ | Office | Cardiology | [place], | | | 2019 | Visit | | SINDHU Erickson [address] | | | | | | [place], | | | | | | [place] [address] | | | | | | [phone] | | | | | | | | +--------+---------+ + + + documented as of this encounter Visit Diagnoses Not on filedocumented in this encounter"
--- OUTSIDE RECORDS SUMMARY | ~2019-02-28 | XMS | Encounter Summary ---
Demographics + + + | Address | [address] | | | [place] [address] | + + + | Home Phone [...] + +------+ + | Care Vice President Quality Improvement Name | Role | Phone | + [...] | | | | | EXERCISE | [place], | [place] | | | | | | [place] [address] | [place], [place] | | | | | | Phone: | [phone] | | | | | | [phone] | Phone: | | | | | | Fax: | [phone] | | | | | | [phone] | Fax: | | | | | | | [phone] | +--------+--------+ + + + + Encounter Details +--------+---------+ + + + | Date | Type | Department | Care Team | Description | +--------+---------+ + + + | 08/13/ | Office | [facility] | Jared Mcdonough, | Chronic obstructive | | 2017 | Visit | MED CTR CARDIAC | [address] | pulmonary disease, | | | | REHABILITATION [address] | [address] [place], | unspecified COPD | | | | [address] [place] [place] | [place] [address] | type (HCC) (Primary | | | | [place] [address] | [phone] | Dx) | | | | [phone] | | | +--------+---------+ + + + [...] [place] | | | | | | [address] | | | | | | | | +--------+---------+ + + + | 11/24/ | Office | Cardiology | [place], | | | 2019 | Visit | | [address] Ericks[address] | | | | | | [place], | | | | | | [place] [address] | | | | | | [phone] | | | | | | | | +--------+---------+ + + + documented as of this encounter Visit Diagnoses + + | Diagnosis | + + | Chronic obstructive pulmonary disease, unspecified COPD type (HCC) - Primary | + + documented in this encounter"
--- OUTSIDE RECORDS SUMMARY | ~2019-02-28 | XMS | Encounter Summary ---
Demographics + + + | Address | [address] | | | [place] [address] | + + + | Home Phone [...] Team Providers + +------+ + | Care Battery Tester Name | Role | Phone | + +------+ + PCP | Unavailable | + +------+ + Encounter Details +--------+ + + + + | Date | Type | Department | Care Team | Description | +--------+ + + + + | 02/27/ | Hospital | [facility] | Ozzy Delcid, | | | 2010 | Encounter | MED CTR XRAY [address] | [address] | | | | | [place] | [place], [place] | | | | | [place] [address] | [address] | | | | | [phone] | | | +--------+ + + + [...] [place] | | | | | | [address] | | | | | | | | +--------+---------+ + + + | 11/24/ | Office | Cardiology | [place], | | | 2019 | Visit | | SINDHU Erickson [address] | | | | | | [place], | | | | | | [place] [address] | | | | | | [phone] | | | | | | | | +--------+---------+ + + + documented as of this encounter Visit Diagnoses Not on filedocumented in this encounter"
--- OUTSIDE RECORDS SUMMARY | ~2019-02-28 | XMS | Encounter Summary ---
Demographics + + + | Address | [address] | | | [place] [address] | + + + | Home Phone [...] Providers + +------+ + | Care Fish House Worker Name | Role | Phone | + +------+ + PCP | Unavailable | + +------+ + Encounter Details +--------+ + + + + | Date | Type | Department | Care Team | Description | +--------+ + + + + | 08/09/ | Hospital | [facility] | [place], | | | 2009 | Encounter | MED CTR EMERGENCY | Ozzy Kim MD [address] | | | | | [place] [address] | [address] [facility] | | | | | [place], [place] | [place] [address] | | | | | [address] | [phone] | | | | | [phone] | | | +--------+ + + + [...] [place] | | | | | | [id number] | | | | | | | | +--------+---------+ + + + | 11/24/ | Office | Cardiology | [place], | | | 2019 | Visit | | SINDHU Erickson W | | | | | | [place] | | | | | | [place] [address] | | | | | | [phone] | | | | | | | | +--------+---------+ + + + documented as of this encounter Visit Diagnoses Not on filedocumented in this encounter"
--- OUTSIDE RECORDS SUMMARY | ~2019-02-28 | XMS | Encounter Summary ---
Demographics + + + | Address | [address] | | | [place] [address] | + + + | Home Phone [...] Team Providers + +------+ + | Care Tourism Radio Presenter Name | Role | Phone | + [...] Headache | Shashi Witt, | [address] | | | | | Pituitary | MD Need | [place], | | | | | tumor | updated | [place] | | | | | Procedures | address | [address] | | | | | CT Head w wo | | Phone: | | | | | Contrast | | [phone] | | | | | | | Fax: | | | | | | | [phone] | +--------+--------+ + + + + Reason for Visit +--------+ + | Reason | Comments | +--------+ + | Other | Schedule MRI | +--------+ + Encounter Details +--------+ + + + + | Date | Type | Department | Care Team | Description | +--------+ + + + + | 11/24/ | Telephone | [facility] | Aneta Rain | Other (Schedule MRI) | | 2013 | | NEUROLOGY ADRIANA | N, RN | | | | | [address], | | | | | | [address] [place] | | | | | | [place] [address] | | | | | | [phone] | | | +--------+ + + + [...] | | | | [place] | | | | | | [address] | | | | | | | | +--------+---------+ + + + | 11/24/ | Office | Cardiology | [place], | | | 2019 | Visit | | SINDHU Erickson [address] | | | | | | [place], | | | | | | [place] [address] | | | | | | [phone] | | | | | | | [...] + | MISCELLANEOUS LAB | | | [phone] | + +---------+ + + | MISCELANIOUS LAB | | | [phone] | + +---------+ + + documented in this encounter Visit Diagnoses + + | Diagnosis | + + | Headache - Primary | + + | 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
--- OUTSIDE RECORDS SUMMARY | ~2019-02-28 | XMS | Encounter Summary ---
Demographics + + + | Address | [address] | | | [place] [address] | + + + | Home Phone [...] Providers + +------+ + | Care Pilot Can Router Name | Role | Phone | + [...] Pituitary | Shashi Witt, | [address] | | | | | adenoma | MD Need | [place], | | | | | ([facility]) | updated | [place] | | | | | Procedures | address | [address] | | | | | MRI Brain w | | Phone: | | | | | wo Contrast | | [phone] | | | | | | | Fax: | | | | | | | [phone] | +--------+--------+ + + + + Reason [...] Pituitary | Shashi Witt, | [address] | | | | | adenoma | MD Need | [place], | | | | | ([facility]) | updated | [place] | | | | | Procedures | address | [address] | | | | | MRI Brain w | | Phone: | | | | | wo Contrast | | [phone] | | | | | | | Fax: | | | | | | | [phone] | +--------+--------+ + + + + Encounter Details +--------+ + + + + | Date | Type | Department | Care Team | Description | +--------+ + + + + | 06/02/ | Hospital | [facility] | Shashi Segovia | Pituitary adenoma | | 2014 | Encounter | MED CTR MRI [address] MD Need updated | ([facility]) | | | | [place], | address | | | | | [place] [address] | | | | | | [phone] | | | +--------+ + + + [...] [place] | | | | | | [address] | | | | | | | | +--------+---------+ + + + | 11/24/ | Office | Cardiology | [place], | | | 2019 | Visit | | SINDHU Erickson [address] | | | | | | [place], | | | | | | [place] [address] | | | | | | [phone] | | | | | | | [...] of 10 mL of Gadavist. Dedicated small bomtz-jm-iysj | | | thin section imaging through [...] 10 mL ofGadavist. | | Dedicated small xceaw-iv-llns thin section imaging through thepituitary region before [...] | Performing | Address | City/State/[facility] | Phone Number | | Organization | | | | + + + + + | [facility] | [address] | [place] | [phone] | | [facility] | | [address] | | | - IMAGING | | [...]
--- OUTSIDE RECORDS SUMMARY | ~2019-02-28 | XMS | Encounter Summary ---
Demographics + + + | Address | [address] | | | [place] [address] | + + + | Home Phone [...] Team Providers + +------+ + | Care Divisional Merchandising Manager Name | Role | Phone | + +------+ + PCP | Unavailable | + +------+ + Encounter Details +--------+ + + + + | Date | Type | Department | Care Team | Description | +--------+ + + + + | 11/27/ | Hospital | [facility] | Ozzy Delcid, | | | 2009 - | Encounter | MED CTR OP REHAB | [address] | | | | | [address] [place] | [place] | | | 12/24/ | | [place] [address] | [address] | | | 2009 | | [phone] | | | +--------+ + + + [...] [place] | | | | | | [address] | | | | | | | | +--------+---------+ + + + | 11/24/ | Office | Cardiology | [place], | | | 2019 | Visit | | SINDHU Erickson W | | | | | | [place] | | | | | | [place] [address] | | | | | | [phone] | | | | | | | | +--------+---------+ + + + documented as of this encounter Visit Diagnoses Not on filedocumented in this encounter"
--- OUTSIDE RECORDS SUMMARY | ~2019-02-28 | XMS | Encounter Summary ---
Demographics + + + | Address | [address] | | | [place] [address] | + + + | Home Phone [...] Providers + +------+ + | Care Research Assistant Name | Role | Phone | [...] Fall, | | | | [address] [place] | [address] [place] | initial encounter; | | 01/10/ | | [place] [address] | [place] [address] | Generalized | | 2018 | | [phone] | [phone] | weakness; Paroxysmal | | | | | | atrial tachycardia | | | | | Nohemi Gregory MD | ([facility]); Chronic | | | | | [address] | obstructive | | | | | [place] | pulmonary disease, | | | | | [address] | unspecified COPD | | | | | | type ([facility]); | | | | | | Gastroesophageal [...] Color, UA Straw Clarity, UA Clear Specific [place] 1.028 PH UA 6.0 Glucose, UA Negative [...] mouth Daily. aka: DELTASONE Respiratory Therapy Supplies [facility] [place] Change CPAP back to 11-14 cm H2O. All necessary supplies. No oxygen bleed in. Diagnosis Co de(s)327.23. Length of Need: Lifetime. Please send order to [facility]. This i s not a new order, just a change in settings. Respiratory Therapy Supplies [facility] Please provide patient with necessary CPAP supplies (she did not specify, okay to send ord er as appropriate) Diagnosis Code(s)327.23 . Length of Need 99 months. Please send order to [facility]. roflumilast 500 mcg tablet Take 1 [...] Malik : 1965: Age: 53 y.o. MedRec: [id number] PCP: Yong Cherry DO Admission date: 2018 [...] Anterolateral/lateral leads Confirmed by RAFA WELLS MD ([id number]) on 01/09/2018 6:50:03 AM POC Glucose Collection [...] PH UA 6.0 5.0 - 8.0 Specific [place] 1.028 1.001 - 1.030 PROTEIN UA Negative [...] nodularity. No mediastinal lymphade nopathy, within the vhtdq-re-vfih. Stable 7 mm nodule in the right [...] [place] | | | | | | [address] | | | | | | | | +--------+---------+ + + + | 11/24/ | Office | Cardiology | [place], | | | 2019 | Visit | | SINDHU Erickson [address] | | | | | | [place], | | | | | | [place] [address] | | | | | | [phone] | | | | | | | [...] W?MRN: | | | | | | [id number] | | | [id number] | | | his | | | [...] | | | St. | | | [facility] | | | [facility] | | | [...] | | | [place] | | | [facility], | | | [place] - [...] | | | | | | n [place] | | | | | + +---------+ [...] [address] | [place] | [phone] | | [facility] | | [address] | | | - LABORATORY | | [...] + | [facility] | [address] | [place] | [phone] | | [facility] | | [address] | | | - LABORATORY | | [...] [address] | [place] | [phone] | | [facility] | | [address] | | | - LABORATORY | | [...] + | [facility] | [address] | [place] | [phone] | | [facility] | | [address] | | | - LABORATORY | | [...] [address] | [place] | [phone] | | [facility] | | [address] | | | - LABORATORY | | [...] [address] | [place] | [phone] | | [facility] | | [address] | | | - LABORATORY | | [...] [address] | [place] | [phone] | | [facility] | | [address] | | | - LABORATORY | | [...] + + | Performed at: 01 - [facility] [address] [place] [address], | REFERENCE LAB | | [place] [id number] Underwriting Manager: Naomie Evans, Phone: | [place] | | [phone] | | + + + + + + + + | Performing | Address | City/State/Zipcode | Phone Number | | Organization | | | | + + + + + | REFERENCE LAB | [address] | [place] [address] | [phone] | | [facility] | Drive [...] | | | | | | [employer] | | | | | [...] [address] | [place] | [phone] | | [facility] | | [address] | | | - LABORATORY | | [...] [address] | [place] | [phone] | | [facility] | | [address] | | | - LABORATORY | | [...] [address] | [place] | [phone] | | [facility] | | [address] | | | - LABORATORY | | [...] (L) | 7 - 18 mg/dL | [facility] | | | | | | [facility] | | | | | | MEDICAL | | | | | | CENTER - | | | | | | LABORATORY | | + + + + + + | Creatinine | 0.61 | 0.60 - 1.30 | [facility] | | | | | mg/dL | [facility] | | | | | | MEDICAL | | | | | | CENTER - | | | | | | LABORATORY | | + + + + + + | eGFR if not | >60Comment: GLOMERULAR | >=60 | [facility] | | | | FILTRATION | mL/min/1.73m2 | [facility] | | | [place] | RATE,ESTIMATED | | MEDICAL | | | | mL/min/1.24v5Lpwb than | | CENTER - | | [...] [address] | [place] | [phone] | | [facility] | | [address] | | | - LABORATORY | | [...] + | [facility] [facility] | [address] | [place] | [phone] | | [facility] | | [address] | | | - LABORATORY | | [...] | | | | | | [employer] | | | | | [...] + | [facility] | [address] | [place] | [phone] | | [facility] | | [address] | | | - LABORATORY | | [...] [address] | [place] | [phone] | | [facility] | | [address] | | | - LABORATORY | | [...] [address] | [place] | [phone] | | [facility] | | [address] | | | - LABORATORY | | [...] | | [facility] | | | [facility] | | | - LABORATORY | + + + + + + + + | Performing | Address | City/State/Zipcode | Phone Number | | Organization | | | | + + + + + | [facility] | [address] | [place] | [phone] | | [facility] | | [address] | | | - LABORATORY | | [...] + | [facility] | [address] | [place] | [phone] | | [facility] | | [address] | | | - LABORATORY | | [...] | | | | | | [employer] | | | | | [...] + | [facility] | [address] | [place] | [phone] | | [facility] | | [address] | | | - LABORATORY | | [...] ST. | [address] | [place] | [phone] | | [facility] | | [address] | | | - LABORATORY | | [...] ST. | [address] | [place] | [phone] | | [facility] | | [address] | | | - LABORATORY | | [...] [address] | [place] | [phone] | | [facility] | | [address] | | | - LABORATORY | | [...] [address] | [place] | [phone] | | [facility] | | [address] | | | - LABORATORY | | [...] [address] | [place] | [phone] | | [facility] | | [address] | | | - LABORATORY | | [...] - 1.030 | [facility] | | | [place] | | | [facility] | | [...] ST. | [address] | [place], [place] | [phone] | | [facility] | | [address] | | | - LABORATORY | | [...] mediastinal | | | lymphadenopathy, within the khuxr-io-ohjc. Stable 7 mm nodule in | | [...] vocal cord nodularity. Nomediastinal lymphadenopathy, within the ulmsu-qy-emsd. Stable | | 7 mm nodule inthe right apex. Bullous changes in the left apex. Small blebs in the | | rightapex. No suspicious lytic or blastic bone lesions. Evidence of a healedsternal | | fracture. There appears to be fusion of the articular pillars at thelevel | | [id number] -No CT evidence for an acute intracranial [...] nodularity. No | |mediastinal lymphadenopathy, within the cdofo-hl-ergu. Stable 7 mm nodule in | |the [...] [address] | [place] | [phone] | | [facility] | | [address] | | | - LABORATORY | | [...] [address] | [place] | [phone] | | [facility] | | [address] | | | - LABORATORY | | [...] + | [facility] | [address] | [place] | [phone] | | [facility] | | [address] | | | - LABORATORY | | [...] [address] | [place] | [phone] | | [facility] | | [address] | | | - LABORATORY | | [...] | | | | | | [employer] | | | | | [...] ST. | [address] | [place], [place] | [phone] | | [facility] | | [address] | | | - LABORATORY | | [...] | | | FILTRATION | mL/min/1.73m2 | [facility] | | | [place] | RATE,ESTIMATED | | MEDICAL | | | | mL/min/1.66o9Jley than | | CENTER - | | [...] | | | | | mg/dL | [facility] | | | | | [...] [address] | [place] | [phone] | | [facility] | | [address] | | | - LABORATORY | | [...] [address] | [place] | [phone] | | [facility] | | [address] | | | - LABORATORY | | [...] + | [facility] [facility] | [address] | [place], [place] | [phone] | | [facility] | | [address] | | | - LABORATORY | | [...] | | | | RAFA WELLS MD ([id number]) | | | | | | on [...] Shortness of Breath, | | | Starting [facility] 01/08/18 at 1705 | | + +---+ [...] | | | | First dose on [facility] 01/08/18 at | | | | | [...] | | | | | Anxiety, Starting [facility] 01/08/18 at | | | | | [...] | | | | CT Scan, Starting [facility] 01/08/18 | | | | | | [...] | | | | last modification) on [facility] | | | | | | [...] | | | | | dose on [facility] 01/08/18 at 1450 | | AM PST [...] | | | | First dose on [facility] 01/08/18 at | | PM PST | [...] | | | | | | Starting [facility] 01/08/18 at 1105, | | | | [...]
--- OUTSIDE RECORDS SUMMARY | ~2019-02-28 | XMS | Encounter Summary ---
Demographics + + + | Address | [address] | | | [place] [address] | + + + | Home Phone [...] Providers + +------+ + | Care Sales Attendant Name | Role | Phone | + +------+ + PCP | Unavailable | + +------+ + Encounter Details +--------+ + + + + | Date | Type | Department | Care Team | Description | +--------+ + + + + | 12/29/ | [facility] | [facility] | | | | 2008 - | Encounter | MED CTR OP REHAB | | | | | | [address] [place] | | | | 01/23/ | | [place] [address] | | | | 2008 | | [phone] | | | +--------+ + + + [...] [place] | | | | | | [phone] | | | | | | | | +--------+---------+ + + + | 11/24/ | Office | Cardiology | [place], | | | 2020 | Visit | | SINDHU Erickson [address] | | | | | [address] [place], | | | | | | [place] [address] | | | | | | [phone] | | | | | | | | +--------+---------+ + + + documented as of this encounter Visit Diagnoses Not on filedocumented in this encounter"
--- OUTSIDE RECORDS SUMMARY | ~2019-02-28 | XMS | Encounter Summary ---
Demographics + + + | Address | [address] | | | [place] [address] | + + + | Home Phone [...] | | | | unspecified | | [address] | | | | | laterality | | Phone: | | | | | Primary | | [phone] | | | | | localized | | Fax: | | | | | osteoarthros | | [phone] | | | | | is of [...] + + | 06/18/ | Hospital | [facility] | Jesus Brady | | | 2018 | Encounter | MED CTR OR INTRA OP | J, DO [address] | | | | | [address] | [place], [place] | | | | | [place], [place] | [address] | | | | | [address] | [phone] | | | | | [phone] | | | +--------+ + + + [...] what medicines and drugsyou take. This includes wfrp-bgm-syu nter medicines, herbs, supplements, alcohol or other [...] adam p you safe. Date Last Reviewed: 01/25/201619996411-3623 [employer] [address] [place] [address], [place] [address]. All righ ts reserved. This information is not intended as a substitute for professional medical care. Always follow your healthcare professional's instructions. [facility] Post-op Instructions - Thumb Surgery The following instructions are meant to guide you following surgery until your first post-o perative visit 7-12 days later. For any problems or questions, please call our office at [phone], Friday through Friday, 9:00 am - 5:00 [...] that you may have received from the [facility], advice from friends, family members, eccles[employer]NT Crowdtical leaders, grocery store clerks, fox lee, Anu, Dr. Jain, Dr. Oz, sports heroes, etc. If unsure, please call our office. Thank you, Jesus Brady D.O. [facility] [address] [place] [address] Your post op appointment is scheduled for Friday06/29/18 at 9:15am. Please check in at 8:45 am for X-rays at the [facility]. documented in this encounter Medications at [...] [place] | | | | | | [address] | | | | | | | | +--------+---------+ + + + | 11/24/ | Office | Cardiology | [place] | | | 2019 | Visit | | SINDHU Erickson [address] | | | | | | [place], | | | | | | [place] [address] | | | | | | [phone] | | | | | | | [...] [address] | [place] | [phone] | | [facility] | | [address] | | | - LABORATORY | | [...] ONCE PRN, Wheezing, | | | Starting [facility] 06/18/18 at 1542, | | | [...] | | | | | Wheezing, Starting [facility] 06/18/18 at | | | | | | | 1306, For 1 dose, Pre-op | | | | | | + +-------+ +-------+---+---+ + +---+ | | | + +---+ | albuterol-ipratropium 2.5-0.5 | | | mg/3 mL nebulizer solution 3 mL | | | 3 mL, Nebulization, ONCE PRN, | | | Wheezing, Shortness of Breath, | | | Starting [facility] 06/18/18 at 1542, For | | [...]
--- OUTSIDE RECORDS SUMMARY | ~2019-02-28 | XMS | Encounter Summary ---
Demographics + + + | Address | [address] | | | [place] [address] | + + + | Home Phone [...] Providers + +------+ + | Care Phlebotomist Lab Assistant Name | Role | Phone [...] [address] | | | | | [place], | [place] | | | | | [place] [address] | [address] | | | | | [phone] | | | +--------+--------+ + + + [...] [place] | | | | | | [address] | | | | | | | | +--------+---------+ + + + | 11/24/ | Office | Cardiology | [place], | | | 2019 | Visit | | SINDHU Erickson [address] | | | | | | [place] | | | | | | [place] [address] | | | | | | [phone] | | | | | | | | +--------+---------+ + + + documented as of this encounter Visit Diagnoses Not on filedocumented in this encounter"
--- OUTSIDE RECORDS SUMMARY | ~2019-02-28 | XMS | Encounter Summary ---
Demographics + + + | Address | [address] | | | [place] [address] | + + + | Home Phone [...] Providers + +------+ + | Care Set Builder Name | Role | Phone | [...] + + | 09/25/ | Office | [facility] | [place], | Chest pain, | | 2016 | Visit | CARDIOLOGY [address] | SINDHU Erickson [address] | unspecified type | | | | [place], | [place], | (Primary Dx); | | | | [place] [address] | [place] [address] | Paroxysmal atrial | | | | [phone] | [phone] | tachycardia (HCC); | | | | [...] schedule for a Holter monitor and to [facility] to come to discuss results. Since [...] She is getting ready to go to [place] to be evaluated in [place] for a stomach/a bdominal surgery. Cardiac-garcia she [...] Need 99 months. Please send order to [facility]. 1 each 0 Respiratory Therapy [...] today primarily from [facility]: LIPID No results found for: CHOL, [...] reviewed records from [facility] for office visit on 09/05/2015 which [...] She was seen at the ED of [facility] 3 weeks ago and again 1 [...] is in a class II of [employer] functional class. There is [...] and ventricular function don e at the [facility]. LVEF 78%. C. Holter Monitor 08/16/13 [...] this chart may have been created with [employer] voice recognition software. Occasi onal wrong-word or [...] [place] | | | | | | [address] | | | | | | | | +--------+---------+ + + + | 11/24/ | Office | Cardiology | [place], | | | 2019 | Visit | | SINDHU Erickson [address] | | | | | | [place], | | | | | | [place] [address] | | | | | | [phone] | | | | | | | | +--------+---------+ + + + documented as of this encounter Visit Diagnoses + + | Diagnosis | + + | Chest pain, unspecified type - Primary | + + | Paroxysmal atrial tachycardia (HCC) Paroxysmal supraventricular tachycardia | + + | Palpitations | + + documented in this encounter
--- OUTSIDE RECORDS SUMMARY | ~2019-02-28 | XMS | Encounter Summary ---
Demographics + + + | Address | [address] | | | [place] [address] | + + + | Home Phone [...] Team Providers + +------+ + | Care Qi Specialist Name | Role | Phone | [...] | (obstructive | [address] | [place] | | | | | sleep | [place] | [place], | | | | | apnea) | [place], [place] | [place] [address] | | | | | Procedures | [address] | Phone: | | | | | [facility] | Phone: | [phone] | | | | | 6/>YRS SLEEP | [phone] | Fax: | | | | | 4/> ADDL | Fax: | [phone] | | | | | ALESSIA ATTND | [phone] | | | | | | [facility] | | | | | | [...] sleep apnea) | | | | [address] [place] | [place] | (Primary Dx) | | | | [place] [address] | [address] | | | | | [phone] | | | +--------+ + + + [...] [place] | | | | | | [address] | | | | | | | | +--------+---------+ + + + | 11/24/ | Office | Cardiology | [place], | | | 2019 | Visit | | SINDHU Erickson [address] | | | | | | [place], | | | | | | [place] [address] | | | | | | [phone] | | | | | | | | +--------+---------+ + + + + + +--------+ + + | Name | Type | Priori | Associated Diagnoses | Order Schedule | | | | ty | | | + + +--------+ + + | * [facility] - | Outpatient | [...]
--- OUTSIDE RECORDS SUMMARY | ~2019-02-28 | XMS | Encounter Summary ---
Demographics + + + | Address | [address] | | | [place] [address] | + + + | Home Phone [...] Providers + +------+ + | Care Fine Craft Artist Name | Role | Phone | + +------+ + PCP | Unavailable | + +------+ + Encounter Details +--------+ + + + + | Date | Type | Department | Care Team | Description | +--------+ + + + + | 09/23/ | Hospital | [facility] | Nestor Martinez, | | | 2010 | Encounter | MED CTR EMERGENCY | [address] | | | | | CENTER [address] | [place], [place] | | | | | [place] | [address] | | | | | [address] | | | | | | [phone] | | | +--------+ + + + [...] [place] | | | | | | [address] | | | | | | | | +--------+---------+ + + + | 11/24/ | Office | Cardiology | [place], | | | 2019 | Visit | | SINDHU Erickson [address] | | | | | | [place], | | | | | | [place] [address] | | | | | | [phone] | | | | | | | [...] [address] | [place] | [phone] | | [facility] | | [address] | | | - LABORATORY | | | | + + + + + | [address] | [address] | [place] | | | [facility] | | [address] | | | - LABORATORY | | [...] [address] | [place] | [phone] | | [facility] | | [address] | | | - LABORATORY | | | | + + + + + | [address] | [address] [facility] | [place] | | | [facility] | | [address] | | | - LABORATORY | | | | + + + + + CT Abdomen Pelvis w Contrast (09/23/2010 11:33 AM PDT) + + | Specimen | + + | | + + + + + | Narrative | Performed At | + + + | [facility]. [facility] Diagnostic Imaging Department | [place] | | [address] [facility], [place] | [facility] | | ABDOMEN AND PELVIS CT [...] Transcribed | | | Date/Time: 09/24/2010 13:01 Unitizer: PEREZ | | | <Electronically Signed by Elías Cardoso MD> 09/24/10 1939 | | + + + + + | Procedure Note | + + | Reed, Rad Conversion - 04/02/2013 3:30 PM [facility] | | Diagnostic Imaging Department [address] [facility] | | ABDOMEN AND PELVIS CT [...] 09:10 | |Transcribed Date/Time: 09/24/2010 13:01 | |Unitizer: | |<Electronically Signed by Elías Cardoso MD> 09/24/101938 | + + + +---------+ + + | Performing | Address | City/State/Zipcode | Phone Number | | Organization | | | | + +---------+ + + | [place] | | | | | [facility] | | | | + +---------+ + + documented in this encounter Visit Diagnoses Not on filedocumented in this encounter"
--- OUTSIDE RECORDS SUMMARY | ~2019-02-28 | XMS | Encounter Summary ---
Demographics + + + | Address | [address] | | | [place] [address] | + + + | Home Phone [...] Team Providers + +------+ + | Care Underground Drill Operator Name | Role | Phone [...] + + | 10/04/ | Office | [facility] | Kevin Sandoval, | COPD (chronic | | 2013 | Visit | PULMONARY [address] | MD [address] | obstructive | | | | [place], | [place], [place] | pulmonary disease) | | | | [place] [address] | [address] | ([facility]) (Primary Dx); | | | | [phone] | | Hypoxemia | +--------+---------+ + + [...] not start to improve within 24 hours 0334-5709 Rafael Perez, [address] [place] [address], [place] [address]. All rights reserve d. This information is [...] evaluated in the emergency department of the [facility]. The second exacerbation occurred in early August and resulted in hospitalization at the [facility]. Treatment with prednisone and anti biotics occurred. Rosario was hospitalized for approximately 4 days. She was discharged o n supplemental oxygen and instructed to use it 24 hours a day. She also apparently had an i ncreased heart rate which was evaluated by eyeglass lens grinder. The patient was treated with digox in. [...] ([facility]) 10/28/2012 Overview: Managed by [facility] along with hypothyroidism Osteoarthritis Tachycardia Social History: [...] Please send order to [facility] D isp: 1 each, Rfl: 0 Respiratory Therapy Supplies MISC, Change CPAP back to 11-14 cm H2O. All necessary supplies . No oxygen bleed in. Diagnosis Code(s)327.23. Length of Need: Lifetime. Please send order t [facility]. This is not [...] | | | | | [place], [place] | | | | | | [address] | | | | | | | | +--------+---------+ + + + | 11/24/ | Office | Cardiology | [place], | | | 2019 | Visit | | SINDHU Erickson [address] | | | | | | [place], | | | | | | [place] [address] | | | | | | [phone] | | | | | | | | +--------+---------+ + + + documented as of this encounter Visit Diagnoses + + | Diagnosis | + + | COPD (chronic obstructive pulmonary disease) (HCC) - Primary Chronic airway | | obstruction, not elsewhere classified | + + | Hypoxemia | + + documented in this encounter
--- OUTSIDE RECORDS SUMMARY | ~2019-02-28 | XMS | Encounter Summary ---
Demographics + + + | Address | [address] | | | [place] [address] | + + + | Home Phone [...] Team Providers + +------+ + | Care Reagent Tender Helper Name | Role | Phone | + +------+ + PCP | Unavailable | + +------+ + Encounter Details +--------+ + + + + | Date | Type | Department | Care Team | Description | +--------+ + + + + | 12/29/ | [facility] | [facility] | | | | 2008 - | Encounter | MED CTR OP REHAB | | | | | | [address] [place] | | | | 01/23/ | | [place] [address] | | | | 2008 | | [phone] | | | +--------+ + + + [...] [place] | | | | | | [address] | | | | | | | | +--------+---------+ + + + | 11/24/ | Office | Cardiology | [place], | | | 2020 | Visit | | SINDHU Erickson [address] | | | | | | [place], | | | | | | [place] [address] | | | | | | [phone] | | | | | | | | +--------+---------+ + + + documented as of this encounter Visit Diagnoses Not on filedocumented in this encounter"
--- OUTSIDE RECORDS SUMMARY | ~2019-02-28 | XMS | Encounter Summary ---
Demographics + + + | Address | [address] | | | [place] [address] | + + + | Home Phone [...] Team Providers + +------+ + | Care Rides Attendant Name | Role | Phone | [...] | obstruction, not | | | | [place], | [place], [place] | elsewhere classified | | | | [place] [address] | [address] | ([facility]) (Primary Dx) | | | | [phone] | | | +--------+ + + + [...] [place] | | | | | | [address] | | | | | | | | +--------+---------+ + + + | 11/24/ | Office | Cardiology | [place], | | | 2019 | Visit | | SINDHU Erickson [address] | | | | | | [place], | | | | | | [place] [address] | | | | | | [phone] | | | | | | | | +--------+---------+ + + + documented as of this encounter Visit Diagnoses + + | Diagnosis | + + | Chronic airway obstruction, not elsewhere classified - Primary | + + documented in this encounter"
--- OUTSIDE RECORDS SUMMARY | ~2019-02-28 | XMS | Encounter Summary ---
Demographics + + + | Address | [address] | | | [place] [address] | + + + | Home Phone [...] + +------+ + | Care Inside Sales Territory Manager Name | Role | Phone | [...] | | | | OP [address] [place] | [place], [place] | | | | | [place], [place] | [address] | | | | | [address] | | | | | | [phone] | | | +--------+ + + + [...] Watson PT - [facility]2016 [facility] [address] [facility] [address] Cancellation/No Show Date: 06/11/2016 Patient Information Patient Name: Rosario Malik Date of : 1965 Age: 51 y.o. Reason for missed visit: Called to cancel due to illness Phone call placed: no Plan: Cont with POC (2 more appts) Electronically signed by: Lakeshia Barkley PT, 06/11/2016 10:11 Patient Name: Rosario Malik/: 1965/ documented [facility] this [facility] Plan of Treatment +--------+---------+ + + + | Date | Type | Specialty | Care Team | Description | +--------+---------+ + + + | 03/31/ | Office | Pulmonology | Mukul Clark MD | | | 2019 | Visit | | [address] | | | | | | [place] | | | | | | [address] | | | | | | | | +--------+---------+ + + + | 11/24/ | Office | Cardiology | [place], | | | 2019 | Visit | | SINDHU Erickson [address] | | | | | | [place], | | | | | | [place] [address] | | | | | | [phone] | | | | | | | | +--------+---------+ + + + documented as of this encounter Visit Diagnoses Not on filedocumented in this encounter"
--- OUTSIDE RECORDS SUMMARY | ~2019-02-28 | XMS | Encounter Summary ---
Demographics + + + | Address | [address] | | | [place] [address] | + + + | Home Phone [...] Team Providers + +------+ + | Care Embedded Firmware Developer Name | Role | Phone | [...] | | | | | pulmonary | [address] | [address] | | | | | disease, | [place], | [place] | | | | | unspecified | [place] [address] | [place], [place] | | | | | COPD type | Phone: | [address] | | | | | (HCC) | [phone] | Phone: | | | | | Pulmonary | Fax: | [phone] | | | | | emphysema, | [phone] | Fax: | | | | | unspecified | | [phone] | | | | | emphysema | | | | | | | type ([facility]) | | | +--------+ + + + + + Encounter Details +--------+---------+ + + + | Date | Type | Department | Care Team | Description | +--------+---------+ + + + | 05/14/ | Office | [facility] | Jared Mcdonough, | Chronic obstructive | | 2017 | Visit | MED CTR CARDIAC | [address] | pulmonary disease, | | | | REHABILITATION [address] [place], | unspecified COPD | | | | [place] | [place] [address] | type (HCC) (Primary | | | | [place] [address] | [phone] | Dx); Pulmonary | | | | [phone] | | emphysema, | | | | [...] Desean Chris - 05/14/2016 3:39 PM PDT [facility] CARDIAC REHABILITATION [address] [place] [address] Cardiac Rehab Date: 05/14/2016 Patient Information Patient [...] | | | | [place] | | | | | | [address] | | | | | | | | +--------+---------+ + + + | 11/24/ | Office | Cardiology | [place], | | | 2019 | Visit | | SINDHU Erickson [address] | | | | | | [place], | | | | | | [place] [address] | | | | | | [phone] | | | | | | | | +--------+---------+ + + + documented as of this encounter Visit Diagnoses + + | Diagnosis | + + | Chronic obstructive pulmonary disease, unspecified COPD type (HCC) - Primary | + + | Pulmonary emphysema, unspecified emphysema type (HCC) | + + documented in this encounter"
--- OUTSIDE RECORDS SUMMARY | ~2019-02-28 | XMS | Encounter Summary ---
Demographics + + + | Address | [address] | | | [place] [address] | + + + | Home Phone [...] Providers + +------+ + | Care Horse Show Manager Name | Role | Phone | + +------+ + | Juan Cherry DO | PCP | | + +------+ + Encounter Details +--------+ + + + + | Date | Type | Department | Care Team | Description | +--------+ + + + + | 07/15/ | Hospital | [facility] | Kevin Sandoval, | COPD (chronic | | 2014 | Encounter | MED CTR PULMONARY | MD [address] | obstructive | | | | FUNCTION [address] | [place] | pulmonary disease); | | | | [place], | [address] | Hypoxemia | | | | [place] [address] | | | | | | [phone] | | | +--------+ + + + [...] | | | | | | [place] [address] | | | | | | [phone] | | | | | | | [...]
--- OUTSIDE RECORDS SUMMARY | ~2019-02-28 | XMS | Encounter Summary ---
Demographics + + + | Address | [address] | | | [place] [address] | + + + | Home Phone [...] Team Providers + +------+ + | Care Slurry Man Name | Role | Phone | [...] + + | 05/06/ | Office | [facility] | [place], | Palpitations | | 2018 | Visit | CARDIOLOGY [address] | SINDHU Erickson [address] | (Primary Dx); Chest | | | | [place], | [place], | pain, unspecified | | | | [place] [address] | [place] [address] | type; Syncope, | | | | [phone] | [phone] | unspecified syncope | | | | [...] 2 times daily. She takes this da [facility] Respiratory Therapy Supplies [facility] [...] Need: Lifetime. Please send orde r to [facility]. This is not a new [...] reviewed during visit today primarily from [facility]: LIPID Lab Results Component Value [...] is in a class I-II o f [employer] functional class. There is no [...] this chart may have been created with [employer] voice recognition software. Occasi onal wrong-word or [...] [place] | | | | | | [address] | | | | | | | | +--------+---------+ + + + | 11/24/ | Office | Cardiology | [place], | | | 2019 | Visit | | SINDHU Erickson [address] | | | | | | [place] | | | | | | [place] [address] | | | | | | [phone] | | | | | | | [...] CLAY | | | | | | ([id number]) on 05/06/2017 | | | | | [...]
--- OUTSIDE RECORDS SUMMARY | ~2019-02-28 | XMS | Encounter Summary ---
Demographics + + + | Address | [address] | | | [place] [address] | + + + | Home Phone [...] Providers + +------+ + | Care Marketing Education Teacher Name | Role | Phone [...] | 08/09/ | Telephone | [facility] [place] | Jared Mcdonough, | Other (Initial | | 2013 | | CARDIOLOGY [address] | [address] | Intake) | | | | [place], | [place], | | | | | [place] [address] | [place] [address] | | | | | [phone] | [phone] | | | | | | | [...] [place] | | | | | | [address] | | | | | | | | +--------+---------+ + + + | 11/24/ | Office | Cardiology | [place], | | | 2019 | Visit | | SINDHU Erickson [address] | | | | | | [place], | | | | | | [place] [address] | | | | | | [phone] | | | | | | | | +--------+---------+ + + + documented as of this encounter Visit Diagnoses Not on filedocumented in this encounter"
--- OUTSIDE RECORDS SUMMARY | ~2019-02-28 | XMS | Encounter Summary ---
Demographics + + + | Address | [address] | | | [place] [address] | + + + | Home Phone [...] Providers + +------+ + | Care Front Counter Attendant Name | Role | Phone | [...] [place] | treatments) | | | | [address] | [place] [address] | | | | | [phone] | [phone] | | | | | | | [...] [place] | | | | | | [id number] | | | | | | | | +--------+---------+ + + + | 11/24/ | Office | Cardiology | [place], | | | 2019 | Visit | | SINDHU Erickson [address] | | | | | | [place] | | | | | | [place] [address] | | | | | | [phone] | | | | | | | | +--------+---------+ + + + documented as of this encounter Visit Diagnoses Not on filedocumented in this encounter"
--- OUTSIDE RECORDS SUMMARY | ~2019-02-28 | XMS | Encounter Summary ---
Demographics + + + | Address | [address] | | | [place] [address] | + + + | Home Phone [...] Team Providers + +------+ + | Care Supervisory Air Intercept Controller Name | Role | Phone | [...] | (Primary Dx) | | | | [place], | [address] | | | | | [place] [address] | | | | | | [phone] | | | +--------+ + + + [...] [place] | | | | | | [address] | | | | | | | | +--------+---------+ + + + | 11/24/ | Office | Cardiology | [place], | | | 2019 | Visit | | SINDHU Erickson [address] | | | | | | [place], | | | | | | [place] [address] | | | | | | [phone] | | | | | | | [...]
--- OUTSIDE RECORDS SUMMARY | ~2019-02-28 | XMS | Encounter Summary ---
Demographics + + + | Address | [address] | | | [place] [address] | + + + | Home Phone [...] Providers + +------+ + | Care Electronic Heat Seal Operator Name | Role | Phone | + +------+ + | Juan Cherry DO | PCP | | + +------+ + Encounter Details +--------+ + + + + | Date | Type | Department | Care Team | Description | +--------+ + + + + | 05/03/ | Hospital | [facility] | Ozzie Hayes | | | 2012 | Encounter | MED CTR EMERGENCY | MD Ran [address] | | | | | CENTER [address] | [address] [facility] | | | | | [place], [place] | [place] [address] | | | | | [address] | [phone] | | | | | [phone] | | | +--------+ + + + [...] [place] | | | | | | [address] | | | | | | | | +--------+---------+ + + + | 11/24/ | Office | Cardiology | [place], | | | 2019 | Visit | | SINDHU Erickson [address] | | | | | | [place], | | | | | | [place] [address] | | | | | | [phone] | | | | | | | | +--------+---------+ + + + documented as of this encounter Visit Diagnoses Not on filedocumented in this encounter"
--- OUTSIDE RECORDS SUMMARY | ~2019-02-28 | XMS | Encounter Summary ---
Demographics + + + | Address | [address] | | | [place] [address] | + + + | Home Phone [...] Providers + +------+ + | Care Utility Worker [place] Name | Role | Phone | + +------+ + | Juan Cherry DO | PCP | | + +------+ + Encounter Details +--------+ + + + + | Date | Type | Department | Care Team | Description | +--------+ + + + + | 08/30/ | Hospital | [facility] | Yecenia Gallegos | | | 2012 | Encounter | MED CTR EMERGENCY | Yinka Aguirre MD [address] | | | | | CENTER [address] | [facility] | | | | | [place], [place] | [place] [address] | | | | | [address] | [phone] | | | | | [phone] | | | +--------+ + + + [...] [place] | | | | | | [address] | | | | | | | | +--------+---------+ + + + | 11/24/ | Office | Cardiology | [place], | | | 2019 | Visit | | SINDHU Erickson [address] | | | | | | [place], | | | | | | [place] [address] | | | | | | [phone] | | | | | | | | +--------+---------+ + + + documented as of this encounter Visit Diagnoses Not on filedocumented in this encounter"
--- OUTSIDE RECORDS SUMMARY | ~2019-02-28 | XMS | Encounter Summary ---
Demographics + + + | Address | [address] | | | [place] [address] | + + + | Home Phone [...] + +------+ + | Care Motion Picture Equipment Supervisor Name | Role | Phone | [...] + + | 05/22/ | Clinical | [facility] | Andriy Weber | Interstitial | | 2018 | Support | [address] | MD Robert [address] | cystitis (chronic) | | | | [place], [place] | [facility] | without hematuria | | | | [address] | [place] [address] | | | | | [phone] | [phone] | | | | | | | [...] was discharged home and will [facility] week for next treatment.Electronically signed [...] | | | | | | [place] [address] | | | | | | [phone] | | | | | | | [...] 1.001 - 1.030 | | | | Amalia, | | | | | | [facility]A, [...]
--- OUTSIDE RECORDS SUMMARY | ~2019-02-28 | XMS | Encounter Summary ---
Demographics + + + | Address | [address] | | | [place] [address] | + + + | Home Phone [...] Providers + +------+ + | Care Vp Delivery Name | Role | Phone | + [...] | 10/16/ | Hospital | [facility] | [place], | Paroxysmal atrial | | 2017 | Encounter | MED CTR NUCLEAR | SINDHU Erickson [address] | tachycardia (HCC); | | | | MEDICINE [address] | [place], | Palpitations | | | | [place], | [place] [address] | | | | | [place] [address] | [phone] | | | | | [phone] | | | +--------+ + + + [...] | | | | | order to [facility]. | | | | | + + [...] | | | | | | | [facility]. | | | | | [...] [place] | | | | | | [id number] | | | | | | | | +--------+---------+ + + + | 11/24/ | Office | Cardiology | [place], | | | 2019 | Visit | | SINDHU Erickson [address] | | | | | | [place], | | | | | | [place] [address] | | | | | | [phone] | | | | | | | [...] Juan | | | DO CAMILLE Cherry SIGNAL HELPER: Jared Mcdonough MD | | | [...] | | Signed by: Jared Mcdonough MD [facility] 10/18/2016, | | | 10:51 | | [...]
--- OUTSIDE RECORDS SUMMARY | ~2019-02-28 | XMS | Encounter Summary ---
Demographics + + + | Address | [address] | | | [place] [address] | + + + | Home Phone [...] Team Providers + +------+ + | Care Behavior Specialist Name | Role | Phone | [...] | | [place] | [facility] | | | | | [address] | [place] [address] | | | | | [phone] | [phone] | | | | | | | [...] [place] | | | | | | [address] | | | | | | | | +--------+---------+ + + + | 11/24/ | Office | Cardiology | [place], | | | 2019 | Visit | | SINDHU Erickson [address] | | | | | | [place], | | | | | | [place] [address] | | | | | | [phone] | | | | | | | | +--------+---------+ + + + documented as of this encounter Visit Diagnoses Not on filedocumented in this encounter"
--- OUTSIDE RECORDS SUMMARY | ~2019-02-28 | XMS | Encounter Summary ---
Demographics + + + | Address | [address] | | | [place] [address] | + + + | Home Phone [...] Team Providers + +------+ + | Care Gluten Settling Tender Name | Role | Phone | [...] on | MED CTR THERAPY PT | WATER QUALITY ASSISTANT [address] | | | | | OP [address] | [place], [place] | | | | | [place], [place] | [address] | | | | | [address] | [phone] | | | | | [phone] | | | +--------+ + + + [...] of this encounter Progress Notes Janey Low, WATER QUALITY ASSISTANT - 05/25/2013 9:34 AM [facility] OP [address] [place] [address] Cancellation/No Show Date: 05/25/2013 Patient Information Patient [...] [place] | | | | | | [id number] | | | | | | | | +--------+---------+ + + + | 11/24/ | Office | Cardiology | [place] | | | 2019 | Visit | | SINDHU Erickson [address] | | | | | | [place] | | | | | | [place] [address] | | | | | | [phone] | | | | | | | | +--------+---------+ + + + documented as of this encounter Visit Diagnoses Not on filedocumented in this encounter"
--- OUTSIDE RECORDS SUMMARY | ~2019-02-28 | XMS | Encounter Summary ---
Demographics + + + | Address | [address] | | | [place] [address] | + + + | Home Phone [...] Team Providers + +------+ + | Care Vending Machine Servicer Name | Role | Phone | [...] (Primary Dx); | | | | [address], | address | [place] | | | | [address] [place] | | | | | | [place] [address] | | | | | | [phone] | | | +--------+ + + + [...] [place] | | | | | | [address] | | | | | | | | +--------+---------+ + + + | 11/24/ | Office | Cardiology | lFores, | | | 2019 | Visit | | SINDHU Erickson [address] | | | | | | [place], | | | | | | [place] [address] | | | | | | [phone] | | | | | | | [...]
--- OUTSIDE RECORDS SUMMARY | ~2019-02-28 | XMS | Encounter Summary ---
Demographics + + + | Address | [address] | | | [place] [address] | + + + | Home Phone [...] Providers + +------+ + | Care Medical Records Field Technician Name | Role | Phone [...] | | | | | [address] [place] | | | | | | [place] [address] | | | | | | [phone] | | | +--------+ + + + [...] Weber, PT - 02/14/2014 1:17 PM [facility] [address] [place] [address] Physical Therapy Discharge Note Date: 02/14/2014 Patient [...] | | | | | | [place] [address] | | | | | | [phone] | | | | | | | | +--------+---------+ + + + documented as of this encounter Visit Diagnoses Not on filedocumented in this encounter"
--- OUTSIDE RECORDS SUMMARY | ~2019-02-28 | XMS | Encounter Summary ---
Demographics + + + | Address | [address] | | | [place] [address] | + + + | Home Phone [...] Team Providers + +------+ + | Care Trust Evaluation Supervisor Name | Role | Phone | [...] + + | 07/19/ | Telephone | [facility] [place] | Kevin Sandoval, | Other (medication | | 2014 | | PULMONARY [address] | MD [address] | request) | | | | [place], | [place] | | | | | [place] [address] | [address] | | | | | [phone] | | | +--------+ + + + [...] [place] | | | | | | [address] | | | | | | | | +--------+---------+ + + + | 11/24/ | Office | Cardiology | [place], | | | 2019 | Visit | | SINDHU Erickson [address] | | | | | | [place], | | | | | | [place] [address] | | | | | | [phone] | | | | | | | | +--------+---------+ + + + documented as of this encounter Visit Diagnoses Not on filedocumented in this encounter"
--- OUTSIDE RECORDS SUMMARY | ~2019-02-28 | XMS | Encounter Summary ---
Demographics + + + | Address | [address] | | | [place] [address] | + + + | Home Phone [...] Team Providers + +------+ + | Care Crocodile Farmer Name | Role | Phone | [...] Concussion | Aaron Kim MD | Business Services Manager [address] | | | Required | | with brief | [address] | [place] | | | | | loss of | [address] | [place], [place] | | | | | consciousnes | [place], | [address] | | | | | s Word | [place] [address] | Phone: | | | | | finding | Phone: | [phone] | | | | | difficulty | [phone] | Fax: | | | | | [phone] | Fax: | [phone] | | | | | (ICD-10-CM) | [phone] | | | | | | - [...] + + | 06/06/ | Hospital | [facility] | Aaron Rodriguez, | Concussion with | | 2017 | Encounter | MED CTR SPEECH | MD [address] | brief (less than one | | | | THERAPY [address] | [place] | hour) loss of | | | | [place], | [address] | consciousness | | | | [place] [address] | | (Primary Dx) | | | | [phone] | Kathi Soto, | | | | [...] | | | | | order to [facility]. | | | | | [...] | 0 | 10/13/19 | | | Bzuohmuvse-VEUT-Tzew | mouth as needed. | | | 16 | 7 | | -Cod [id number] MG | | | | | | [...] Speech Pathologist - 06/06/2016 5:52 PM PDT [facility] [address] [facility] [address] Speech Therapy Daily Treatment Note Date: 06/06/2016 [...] Precautions Precautions None Rehab Learning Style [facility] CANCELING MACHINE OPERATOR OP EVAL from 05/16/2016 in [facility] Office V isit from 05/01/2016 in [facility] PT [...] | | | | [place] | | | | | | [address] | | | | | | | | +--------+---------+ + + + | 11/24/ | Office | Cardiology | [place], | | | 2020 | Visit | | SINDHU Erickson [address] | | | | | | [place], | | | | | | [place] [address] | | | | | | [phone] | | | | | | | [...]
--- OUTSIDE RECORDS SUMMARY | ~2019-02-28 | XMS | Encounter Summary ---
Demographics + + + | Address | [address] | | | [place] [address] | + + + | Home Phone [...] Providers + +------+ + | Care Bakery Team Member Name | Role | Phone | [...] MED CTR CARDIAC | MD [address] | unspecified | | | | REHABILITATION [address] | [place], | emphysema type (HCC) | | | | [address] [place] | [place] [address] | (Primary Dx); | | | | [place] [address] | [phone] | Chronic obstructive | | | | [phone] | | pulmonary disease, | | | [...] | | | | | | [place] [address] | | | | | | [phone] | | | | | | | [...]
--- OUTSIDE RECORDS SUMMARY | ~2019-02-28 | XMS | Encounter Summary ---
Demographics + + + | Address | [address] | | | [place] [address] | + + + | Home Phone [...] Team Providers + +------+ + | Care Shot Peening Operator Name | Role | Phone | [...] | Specialty | Physical | Diagnoses | [place], | [facility] | | | Services | Therapy | | Grant Maynard MD | Pt Acute | | | Required | | Fibromyalgia | [address] | [address] | | | | | | [address] [place] | [place], | | | | | | [place], [place] | [place] | | | | | | [address] | [address] | | | | | | Phone: | Phone: | | | | | | [phone] | [phone] | | | | | | Fax: | Fax: | | | | | | [phone] | [phone] | +--------+ + + + + + Reason for Visit + + + | Reason | Comments | + + + | New Patient | Establish care | + + + Encounter Details +--------+---------+ + + + | Date | Type | Department | Care Team | Description | +--------+---------+ + + + | 03/02/ | Office | [facility] | Grant Castle, | ORGANIC INSOMNIA | | 2013 | Visit | MEDICINE [place] | [address] | UNSPECIFIED (Primary | | | | [address] | [place] | Dx); Primary | | | | [place] | [address] | central sleep apnea; | | | | [address] | | Tobacco user; | | | | [phone] | | Posttraumatic stress | | | [...] your behavior and peer support. Call the [facility] Quitline for more information. 060-UMIK-ATK (920-965-2761). Low-cost or free programs are offered by many hospitals, local chapters of the [place] [employer] (621-060-8333) a nd the [place] [employer] ([phone]). Support at home is important too. Non-smokers can help by offering praise and encouragement. If the smoker fails to quit, encourage them to try again! EBJR-JZM-[id number] MEDICINES: For those who can't quit on [...] such as bupropion (Zyban, Wellbutrin), varenicline (Chantix, Dover ix), a niocotine inhaler or nasal spray. [...] smoking, visit the following links: National Cancer [place] , Clearing the Air, Quit Smoking Today - an online tejada klet. http://www.smokefree.gov/pubs/clearing_the_air.pdf Smokefree.gov http://smokefree.gov/ QuitNet http://www.quitnet.com/ 0269-2191 Rafael NeumannDeo, [address] [place] [address]. All rights reserve d. This information is [...] to relax by reading or listening to [employer] music. 7. Limit daytime napping to one [...] there) Anxiety, depression Several days without sleeping 4637-7513 [facility], [address] [place] [address]. All rights reserve d. This information is [...] she does wor k. 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 She [...] She has had to be admitted to [facility] and [facility] due to suicidal ideation by overdose. Sh drew did attempt suicide once, can't recall the medicine. This was in 1986 and 1988. No thoug hts of SI or HI in years. She has hypothryroidism managed by [facility]. She sees [facility] due to possible Pocahontas's and possi quentin adrenal insufficiency. She has fibromyalgia treated with cymbalta and tramadol. Tried PT years ago. Can't afford [employer] membership. Patient's medications, allergies, past medical, surgical, [...] | | | | | | [place] [address] | | | | | | [phone] | | | | | | | [...]
--- OUTSIDE RECORDS SUMMARY | ~2019-02-28 | XMS | Encounter Summary ---
Demographics + + + | Address | [address] | | | [place] [address] | + + + | Home Phone [...] Author | [facility] | | | and [...] Team Providers + +------+ + | Care Celery Stripper Name | Role | Phone | [...] | | | | | pulmonary | [address] | [address] | | | | | disease, | [place], | [place] | | | | | unspecified | [place] [address] | [place], [place] | | | | | COPD type | Phone: | [address] | | | | | (HCC) | [phone] | Phone: | | | | | Pulmonary | Fax: | [phone] | | | | | emphysema, | [phone] | Fax: | | | | | unspecified | | [phone] | | | | | emphysema | | | | | | | type ([facility]) | | | +--------+ + + + + + Encounter Details +--------+---------+ + + + | Date | Type | Department | Care Team | Description | +--------+---------+ + + + | 05/28/ | Office | [facility] | Jared Mcdonough, | Chronic obstructive | | 2017 | Visit | MED CTR CARDIAC | [address] | pulmonary disease, | | | | REHABILITATION [address] | [place], | unspecified COPD | | | | [address] [place] | [place] [address] | type (HCC) (Primary | | | | [place] [address] | [phone] | Dx); Pulmonary | | | | [phone] | | emphysema, | | | | [...] Desean Chris - 05/28/2016 3:42 PM PDT [facility] CARDIAC REHABILITATION [address] [place] [address] Cardiac Rehab Date: 05/28/2016 Patient Information Patient [...] | | | | [place] | | | | | | [address] | | | | | | | | +--------+---------+ + + + | 11/24/ | Office | Cardiology | [place], | | | 2019 | Visit | | SINDHU Erickson [address] | | | | | | [place], | | | | | | [place] [address] | | | | | | [phone] | | | | | | | | +--------+---------+ + + + documented as of this encounter Visit Diagnoses + + | Diagnosis | + + | Chronic obstructive pulmonary disease, unspecified COPD type (HCC) - Primary | + + | Pulmonary emphysema, unspecified emphysema type (HCC) | + + documented in this encounter"
--- OUTSIDE RECORDS SUMMARY | ~2019-02-28 | XMS | Encounter Summary ---
Demographics + + + | Address | [address] | | | [place] [address] | + + + | Home Phone [...] Providers + +------+ + | Care Track Broom Operator Name | Role | Phone | [...] + + | 03/21/ | Office | [facility] | Kevin Sandoval, | GARRY (obstructive | | 2014 | Visit | PULMONARY [address] | MD [address] | sleep apnea) | | | | [place], | [place] | (Primary Dx); | | | | [place] [address] | [address] | Hypoxemia | | | | [phone] | | | +--------+---------+ + + + [...] pauses than usual Unable to awaken Seizure 0340-5407 [employer]. [address] [place] [address], [place] [address]. All righ ts reserved. This information is [...] energetic after her C Pap titration [facility]. Rosario Malik is not noting [...] ([facility]) 10/28/2012 Overview: [facility] by [facility] [...] d 99 months. Please send order to [facility] Disp: 1 each, Rfl: 0 Respiratory Therapy Supplies MISC, Change CPAP back to 11-14 cm H2O. All necessary supplies . No oxygen bleed in. Diagnosis Code(s)327.23. Length of Need: Lifetime. Please send order t o [facility]. This is not [...] in approximately 4 w eeks' time. CC: uJan Cherry P STdocumented in this encounter Plan [...] [place] | | | | | | [address] | | | | | | | | +--------+---------+ + + + | 11/24/ | Office | Cardiology | [place], | | | 2019 | Visit | | SINDHU Erickson [address] | | | | | | [place], | | | | | | [place] [address] | | | | | | [phone] | | | | | | | | +--------+---------+ + + + documented as of this encounter Visit Diagnoses + + | Diagnosis | + + | GARRY (obstructive sleep apnea) - Primary Obstructive sleep apnea (adult) (pediatric) | + + | Hypoxemia | + + documented in this encounter
--- OUTSIDE RECORDS SUMMARY | ~2019-02-28 | XMS | Encounter Summary ---
Demographics + + + | Address | [address] | | | [place] [address] | + + + | Home Phone [...] Providers + +------+ + | Care Online Communications Manager Name | Role | Phone [...] + | 07/25/ | Documentati | [facility] | Kathi Soto, | No Show | | 2017 | on | MED CTR SPEECH | Speech Pathologist | | | | | THERAPY [address] | | | | | | [place], | | | | | | [place] [address] | | | | | | [phone] | | | +--------+ + + + [...] Speech Pathologist - 07/25/2016 1:58 PM [facility] [address] [place] [address] Cancellation/No Show Date: 07/25/2016 Patient Information Patient [...] | | | | | | [place] [address] | | | | | | [phone] | | | | | | | | +--------+---------+ + + + documented as of this encounter Visit Diagnoses Not on filedocumented in this encounter"
--- OUTSIDE RECORDS SUMMARY | ~2019-02-28 | XMS | Encounter Summary ---
Demographics + + + | Address | [address] | | | [place] [address] | + + + | Home Phone [...] Providers + +------+ + | Care Book Shelver Name | Role | Phone | + [...] + + | 04/14/ | Office | [facility] | Brian Miranda | Sprain of chest wall | | 2013 | Visit | OCCUPATIONAL HEALTH | MD [address] | (Primary Dx); Place | | | | [place] [address] | [facility] | of occurrence, | | | | [address] [place] | [place] [address] | industrial places | | | | [place], [place] | [phone] | and premises | | | | [address] | | | | | | [phone] | | | +--------+---------+ + + + [...] MD - 04/14/2013 11:10 AM PSTSee dictation [id number] lisha d by Brian Miranda MD at 04/14/2013 11:11 AM Brian Avendano MD - 04/14/19 14 12:00 AM PST OCCUPATIONAL MEDICINE [address] [place] [address] [place] [address] FAX: [phone] OFFICE VISIT Claim Number: [id number] Date of Injury: 04/05/2013 Employer: [employer] [...] Srinath Miranda MD / AF JOB #: [id number] signed by Brian Miranda MD at 04/15/2013 [...] [place] | | | | | | [id number] | | | | | | | | +--------+---------+ + + + | 11/24/ | Office | Cardiology | [place], | | | 2019 | Visit | | SINDHU Erickson [address] | | | | | | [place], | | | | | | [place] [address] | | | | | | [phone] | | | | | | | [...]
--- OUTSIDE RECORDS SUMMARY | ~2019-02-28 | XMS | Encounter Summary ---
Demographics + + + | Address | [address] | | | [place] [address] | + + + | Home Phone [...] Providers + +------+ + | Care Specimen Processor Name | Role | Phone | [...] + + | 06/23/ | Hospital | [facility] | [place], | Racing heart beat | | 2018 | Encounter | MED CTR NUCLEAR | SINDHU Erickson [address] | | | | | MEDICINE [address] | [place], | | | | | [place], | [place] [address] | | | | | [place] [address] | [phone] | | | | | [phone] | | | +--------+ + + + [...] | | | order to [facility]. | | | | | + [...] [place] | | | | | | [address] | | | | | | | | +--------+---------+ + + + | 11/24/ | Office | Cardiology | [place], | | | 2019 | Visit | | SINDHU Erickson [address] | | | | | | [place], | | | | | | [place] [address] | | | | | | [phone] | | | | | | | | +--------+---------+ + + + documented as of this encounter Visit Diagnoses + + | Diagnosis | + + | Racing heart beat Tachycardia, unspecified | + + documented in this encounter"
--- OUTSIDE RECORDS SUMMARY | ~2019-02-28 | XMS | Encounter Summary ---
Demographics + + + | Address | [address] | | | [place] [address] | + + + | Home Phone [...] Providers + +------+ + | Care Technical Expert Name | Role | Phone | [...] + + | 11/11/ | Telephone | [facility] [place] | Shashi Segovia | Results | | 2013 | | PHYSIATRY [address] MD Need updated | | | | | [place], | address | | | | | [place] [address] | | | | | | [phone] | | | +--------+ + + + [...] [place] | | | | | | [address] | | | | | | | | +--------+---------+ + + + | 11/24/ | Office | Cardiology | [place], | | | 2019 | Visit | | SINDHU Erickson [address] | | | | | | [place], | | | | | | [place] [address] | | | | | | [phone] | | | | | | | | +--------+---------+ + + + documented as of this encounter Visit Diagnoses Not on filedocumented in this encounter"
--- OUTSIDE RECORDS SUMMARY | ~2019-02-28 | XMS | Encounter Summary ---
Demographics + + + | Address | [address] | | | [place] [address] | + + + | Home Phone [...] Providers + +------+ + | Care Processing Manager Name | Role | Phone | + +------+ + PCP | Unavailable | + +------+ + Encounter Details +--------+ + + + + | Date | Type | Department | Care Team | Description | +--------+ + + + + | 09/15/ | Hospital | [facility] | Rocky Rodriguez | | | 2010 | Encounter | MED CTR EMERGENCY | MD Kyler [address] | | | | | CENTER [address] [place] | [address] [facility] | | | | | [place], [place] | [place] [address] | | | | | [address] | [phone] | | | | | [phone] | | | +--------+ + + + [...] [place] | | | | | | [address] | | | | | | | | +--------+---------+ + + + | 11/24/ | Office | Cardiology | [place], | | | 2019 | Visit | | SINDHU Erickson [address] | | | | | | [place], | | | | | | [place] [address] | | | | | | [phone] | | | | | | | | +--------+---------+ + + + documented as of this encounter Visit Diagnoses Not on filedocumented in this encounter"
--- OUTSIDE RECORDS SUMMARY | ~2019-02-28 | XMS | Encounter Summary ---
Demographics + + + | Address | [address] | | | [place] [address] | + + + | Home Phone [...] Providers + +------+ + | Care Police Guard Name | Role | Phone | [...] | Concussion | Aaron Kim MD | Finding Fastener [address] | | | Required | | with brief | [address] | [place] | | | | | loss of | [address] | [place], [place] | | | | | consciousnes | [place], | [address] | | | | | s Word | [place] [address] | Phone: | | | | | finding | Phone: | [phone] | | | | | difficulty | [phone] | Fax: | | | | | [phone] | Fax: | [phone] | | | | | (ICD-10-CM) | [phone] | | | | | | - [...] + + | 08/07/ | Hospital | [facility] | Aaron Rodriguez, | Concussion with | | 2017 | Encounter | [facility] | MD [address] | brief (less than one | | | | THERAPY [address] | [place], [place] | hour) loss of | | | | [place], | [address] | consciousness | | | | [place] [address] | | (Primary Dx); | | | | [phone] | Kathi Soto, | Impaired memory; | [...] | 0 | 10/13/19 | | | Adqlluspmr-QKZD-Bpyp | mouth as needed. | | | 16 | 7 | | -Cod [id number] MG | | | | | | [...] Speech Pathologist - 08/08/2016 11:40 AM PDT [facility] SPEECH THERAPY [address] [place] [address] Speech Therapy Daily Treatment Note Date: 08/07/2016 [...] Flowsheet Row Office Visit from 05/01/2016 in [facility] THERAPY PT OP Rehab Precautions Precautions None Rehab Learning Style Flowsheet Ayde WSM PUMP STATION OPERATOR OP EVAL from 05/16/2016 in [facility] SPEECH THERAPY O ffice Visit from 05/01/2016 in [facility] THERAPY PT OP Learning Style [...] | | | | [address] [place] | | | | | | [address] | | | | | | | | +--------+---------+ + + + | 11/24/ | Office | Cardiology | [place], | | | 2019 | Visit | | SINDHU Erickson [address] | | | | | | [place], | | | | | | [place] [address] | | | | | | [phone] | | | | | | | [...]
--- OUTSIDE RECORDS SUMMARY | ~2019-02-28 | XMS | Encounter Summary ---
Demographics + + + | Address | [address] | | | [place] [address] | + + + | Home Phone [...] Team Providers + +------+ + | Care Derrickman Helper Name | Role | Phone | [...] + + | 05/22/ | Clinical | [facility] | Andriy Weber | Interstitial | | 2018 | Support | [address] | MD Robert [address] | cystitis (chronic) | | | | [place], [place] | [facility]OM [facility] | without hematuria | | | | [address] | [place] [address] | | | | | [phone] | [phone] | | | | | | | [...] was discharged home and will [facility] for next treatment.Electronically signed [...] | | | | | | [place] [address] | | | | | | [phone] | | | | | | | [...] 1.001 - 1.030 | | | | [place], | | | | | | [facility], [...]
--- OUTSIDE RECORDS SUMMARY | ~2019-02-28 | XMS | Encounter Summary ---
Demographics + + + | Address | [address] | | | [place] [address] | + + + | Home Phone [...] Providers + +------+ + | Care Credit Card Specialist Name | Role | Phone | [...] | | [place] | THOM [facility] | | | | | [address] | [place] [address] | | | | | [phone] | [phone] | | | | | | | [...] [place] | | | | | | [address] | | | | | | | | +--------+---------+ + + + | 11/24/ | Office | Cardiology | [place], | | | 2019 | Visit | | SINDHU Erickson [address] | | | | | | [place], | | | | | | [place] [address] | | | | | | [phone] | | | | | | | | +--------+---------+ + + + documented as of this encounter Visit Diagnoses Not on filedocumented in this encounter"
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
--- OUTSIDE RECORDS SUMMARY | ~2019-02-28 | XMS | Encounter Summary ---
Demographics + + + | Address | [address] | | | [place] [address] | + + + | Home Phone [...] Providers + +------+ + | Care Service Advisor Name | Role | Phone [...] Place of | [address] | [place], | | | | | occurrence, | [place] | [place] [address] | | | | | industrial | [place], [place] | Phone: | | | | | places and | [address] | [phone] | | | | | premises | Phone: | Fax: | | | | | | [phone] | [phone] | | | | | | Fax: | | | | | | | [phone] | | +--------+ + + + + [...] + + | 04/30/ | Office | [facility] | Brian Miranda | Sprain of chest wall | | 2014 | Visit | [facility] | MD Oz[address] | (Primary Dx); Place | | | | [place] [address] | [address] [facility] | of occurrence, | | | | [address] [place] | [place] [address] | industrial places | | | | [facility], [place] | [phone] | and premises | | | | [address] | | | | | | [phone] | | | +--------+---------+ + + + [...] - 04/30/2013 6:41 PM PSTClaim [place]: [id number] Date of injury: 04/05/13 Employer:[employer] Guarantor: [...] more easily, while she goes to the [employer] process. She'll continue on work restrictions followup [...] [place] | | | | | | [address] | | | | | | | | +--------+---------+ + + + | 11/24/ | Office | Cardiology | [place], | | | 2019 | Visit | | SINDHU Erickson [address] | | | | | | [place], | | | | | | [place] [address] | | | | | | [phone] | | | | | | | [...]
--- OUTSIDE RECORDS SUMMARY | ~2019-02-28 | XMS | Encounter Summary ---
Demographics + + + | Address | [address] | | | [place] [address] | + + + | Home Phone [...] Providers + +------+ + | Care Auto Claim Representative Name | Role | Phone [...] Provider Unknown | | | | | [place], [place] | [phone] | | | | | [address] | | | | | | [phone] | | | +--------+ + + + [...] | | | | [address] [place] [facility] [facility] [place] | | | | | | [address] | | | | | | | | +--------+---------+ + + + | 11/24/ | Office | Cardiology | [place], | | | 2019 | Visit | | SINDHU Erickson [address] | | | | | | [place], | | | | | | [place] [address] | | | | | | [phone] | | | | | | | [...]
--- OUTSIDE RECORDS SUMMARY | ~2019-02-28 | XMS | Encounter Summary ---
Demographics + + + | Address | [address] | | | [place] [address] | + + + | Home Phone [...] Team Providers + +------+ + | Care Butcher All Round Name | Role | Phone | + [...] + + | 05/15/ | Office | [facility] | Offenstein, | GARRY (obstructive | | 2012 | Visit | PULMONARY [address] | Loreta Alonso MD | sleep apnea) | | | | [place], | | (Primary Dx); | | | | [place] [address] | | Central sleep apnea; | | | | [phone] | | Insomnia; COPD | | | [...] will send a corrected CPAP order to [facility]. 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 Clarification for order from [...] made to ensure accuracy; however, inadvertent computerized general ophthalmologist errors may be pre sent. documented in [...] [place] | | | | | | [address] | | | | | | | | +--------+---------+ + + + | 11/24/ | Office | Cardiology | [place], | | | 2019 | Visit | | SINDHU Erickson [address] | | | | | | [place] | | | | | | [place] [address] | | | | | | [phone] | | | | | | | [...]
--- OUTSIDE RECORDS SUMMARY | ~2019-02-28 | XMS | Encounter Summary ---
Demographics + + + | Address | [address] | | | [place] [address] | + + + | Home Phone [...] Providers + +------+ + | Care Car Dryer Name | Role | Phone | + [...] | | | | | [place] | [address]OM [facility] | | | | | [address] | [place] [address] | | | | | [phone] | [phone] | | | | | | | [...] [place] | | | | | | [address] | | | | | | | | +--------+---------+ + + + | 11/24/ | Office | Cardiology | [place], | | | 2019 | Visit | | SINDHU Erickson [address] | | | | | | [place], | | | | | | [place] [address] | | | | | | [phone] | | | | | | | | +--------+---------+ + + + documented as of this encounter Visit Diagnoses Not on filedocumented in this encounter"
[~2019-02-28 06:37] MED LIST: ADVAIR HFA 230-12 GM INH; FLUTICASONE PRO16 GM NAS; GABAPENTIN800 MG PO; HYDROXYZINE HCL25 MG PO; LEVOFLOXACIN500 MG PO; LEVOTHYROXINE75 MCG PO; METFORMIN HCL500 MG PO; METRONIDAZOLE250 MG PO; OXYBUTYNIN CHLOR5 MG PO; PANTOPRAZOLE SO40 MG PO; POTASSIUM CHLO20 ME1 PO; PREDNISONE10 MG PO; RISPERIDONE2 MG PO; SUMATRIPTAN SU100 MG PO; ULTRAM50 MG PO; VENTOLIN HFA18 GM INH; ZIPRASIDONE HCL80 MG PO; ZOLPIDEM TARTRA10 MG PO
--- OUTSIDE RECORDS SUMMARY | 2019-02-28 06:40 | XMS ---
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 Care History Medical/Surgical 01/18/2019 [facility] - Patient is currently established with [facility]. If patient is seen in the ED during business hours. Please contact [facility] at [facility]. Care Recommendation: If this patient has had 5 or more Emergency Department visits in the last 12 months.\T\nbsp; Patient will require education on the scope and purpose of the ED as an acute care provider not a Primary Care Provider and should not be utilized for chronic conditions.\T\nbsp; These are guidelines and the provider should exercise clinical judgment when providing care. E.D. VISIT COUNT (12 MO.) 2 JANELLE Winkler TOTAL 2 NOTE: Visits indicate total known visits. ED/UCC VISIT TRACKING (12 MO.) 02/28/2019 06:38 JANELLE Espinoza OR TYPE: Emergency COMPLAINT: - RIB PAIN/ INJ 01/15/2019 02:41 JANELLE Espinoza OR TYPE: Emergency COMPLAINT: - URINE PROBLEM INPATIENT VISIT TRACKING (12 MO.) 01/15/2019 14:05 JANELLE Espinoza OR TYPE: Medical Surgical COMPLAINT: - ACUTE DIVERTICULITIS DIAGNOSES: - Chronic obstructive pulmonary disease, unspecified - long term acute care registered nurse (current) use of systemic steroids - long term acute care registered nurse (current) use of opiate analgesic - long term acute care registered nurse (current) use of opiate analgesic - Allergy status to oth drug/meds/biol subst status - Adverse effect of glucocort/synth analog, subs - Fibromyalgia - snf (current) use of inhaled steroids - Allergy status to other antibiotic agents status - Dorsalgia, unspecified - Chronic obstructive pulmonary disease, unspecified - Adverse effect of glucocort/synth analog, subs - Mental disorder, not otherwise specified - Other chcf (current) drug therapy - Fibromyalgia - Drug-induced adrenocortical insufficiency - Dorsalgia, unspecified - snf (current) use of oral hypoglycemic drugs - long term acute care registered nurse (current) use of inhaled steroids - long term acute care registered nurse (current) use of systemic steroids - Allergy status to oth drug/meds/biol subst status - Unspecified osteoarthritis, unspecified site - Allergy status to other antibiotic agents status - Other chcf (current) drug therapy - Dvtrcli of lg int w/o perforation or abscess w/o bleeding - Mental disorder, not otherwise specified - long term acute care registered nurse (current) use of oral hypoglycemic drugs - Unspecified osteoarthritis, unspecified site - Drug-induced adrenocortical insufficiency [email or web address]
[2019-02-28] MEDS ORDERED: NORCO 5-325 TA1 EACH PO (09:23)
== END 2019-02-28 09:39 | disposition home or self-care (01) ==
LOC: ED 06:37
DX: R07.89 Other chest pain (principal); F17.200 Nicotine dependence, unspecified, uncomplicated; J44.9 Chronic obstructive pulmonary disease, unspecified; Z88.1 Allergy status to other antibiotic agents; Z88.6 Allergy status to analgesic agent; Z91.048 Other nonmedicinal substance allergy status; Z79.899 Other long term (current) drug therapy; Z79.82 Long term (current) use of aspirin; Z79.84 Long term (current) use of oral hypoglycemic drugs
CPT/HCPCS: 71046; 80048; 85025; 85379; 99285-25

== ENCOUNTER 2019-06-16 05:28 | Emergency (ER) | payer MEDICARE, MEDICAID ==
[~2019-06-16] VITALS: Ht 157.5 cm; Wt 63.0 kg
[~2019-06-16 05:28] MED LIST changes: +NORCO 5-325 TA1 EACH PO
--- OUTSIDE RECORDS SUMMARY | 2019-06-16 05:32 | XMS ---
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 Care History Medical/Surgical 01/18/2019 [facility] - Patient is currently established with [facility]. If patient is seen in the ED during business hours. Please contact CHWs at [facility]. Care Recommendation: If this patient has had [...] providing care. E.D. VISIT COUNT (12 MO.) [address] [facility] TOTAL 3 NOTE: Visits indicate total known visits. ED/UCC VISIT TRACKING (12 MO.) 06/16/2019 05:29 [facility] TYPE: Emergency COMPLAINT: - ABDOMINAL PAIN 02/28/2019 06:38 [facility] TYPE: Emergency COMPLAINT: - CHEST PAIN DIAGNOSES: - Other chest pain - Allergy status to other antibiotic agents status - runstitching machine operator (current) use of aspirin - Chronic obstructive pulmonary disease, unspecified - runstitching machine operator (current) use of oral hypoglycemic drugs - Nicotine dependence, unspecified, uncomplicated - Other halfway (current) drug therapy - Allergy status to analgesic agent status - Other nonmedicinal substance allergy status 01/15/2019 02:41 [facility] TYPE: Emergency COMPLAINT: - URINE PROBLEM INPATIENT VISIT TRACKING (12 MO.) 01/15/2019 14:05 [facility] TYPE: Medical Surgical COMPLAINT: - ACUTE DIVERTICULITIS DIAGNOSES: - Chronic obstructive pulmonary disease, unspecified - runstitching machine operator (current) use of systemic steroids - runstitching machine operator (current) use of opiate analgesic - halfway (current) use of opiate analgesic - Allergy status to other drugs, medicaments and biological sub - Adverse effect of glucocorticoids and synthetic analogues, luna - Fibromyalgia - runstitching machine operator (current) use of inhaled steroids - Allergy status to other antibiotic agents status - Dorsalgia, unspecified - Chronic obstructive pulmonary disease, unspecified - Adverse effect of glucocorticoids and synthetic analogues, luna - Mental disorder, not otherwise specified - Other halfway (current) drug therapy - Fibromyalgia - Drug-induced adrenocortical insufficiency - Dorsalgia, unspecified - halfway (current) use of oral hypoglycemic drugs - halfway (current) use of inhaled steroids - runstitching machine operator (current) use of systemic steroids - Allergy status to other drugs, medicaments and biological sub - Unspecified osteoarthritis, unspecified site - Allergy status to other antibiotic agents status - Other long term care phlebotomist (current) drug therapy - Diverticulitis of large intestine without perforation or absc - Mental disorder, not otherwise specified - runstitching machine operator (current) use of oral hypoglycemic drugs - Unspecified osteoarthritis, unspecified site - Drug-induced adrenocortical insufficiency [email or web address]
--- NOTE | 2019-06-17 13:05 | CONS ---
[facility] [address] [place], [place] [address] Signed DATE OF CONSULTATION: 06/16/2019 CONSULTATION PHYSICIAN: Rekha Woodall MD REQUESTING PHYSICIAN: Dr. Lagos. PROBLEM: Recurrent acute sigmoid diverticulitis. HISTORY OF PRESENT ILLNESS: This 54-year-old white woman has chronic adrenal insufficiency and takes prednisone on a daily basis for that. She is known to me from the past, having undergone hospitalization for acute diverticulitis in December 2018, She presented to the emergency room today and was evaluated by Dr. Amato and Dr. Lagos with complaints of vague abdominal pain mostly in the region of the umbilicus. She was noted to have an elevated white count and a CT scan was performed, which showed probable recurrent acute diverticulitis with possible intramural fluid or abscess. There is no extracolonic well-formed abscess, but findings are consistent with acute diverticulitis (recurrent). I was asked by Dr. Lagos to see her in the emergency room for my evaluation and opinion on management. She is said to have had abdominal pain for the past two weeks. It radiates into her back somewhat. She has had no associated vomiting or diarrhea. She was said to have had a prescription for a repetitive urinary tract infection, but is unclear if she actually took any antibiotics. Review of her medications show she continues to take prednisone 10 mg daily for documented adrenal insufficiency, zolpidem, sumatriptan, albuterol, hydroxyzine, risperidone, pantoprazole, gabapentin, Synthroid, metformin, fluticasone, oxybutynin, ziprasidone, and tramadol. Review of my notes from her last evaluation last fall show she improved her diverticulitis symptoms promptly and recovered well overall. She denies any fever or chills. She has tolerated oral intake well. REVIEW OF SYSTEMS: She denies any shortness of breath or chest pain. Notes that she generally has a "low blood pressure." Denies any hematemesis or blood per rectum. PHYSICAL EXAMINATION: GENERAL: This is a pleasant white woman, who does not look to be systemically toxic Electronically Signed By: REKHA WOODALL MD 06/17/19 1305 PATIENT NAME: JADYN SCHMITZ CONSULTATION DATE OF : 69 REPORT #: [id number] PHYSICIAN: REKHA WOODALL MD PCP: YONG PATEL DO REPORT IS CONFIDENTIAL AND NOT TO BE RELEASED WITHOUT AUTHORIZATION [facility] [address] [place], [place] [address] Signed actually. VITAL SIGNS: Show temperature of 99, pulse of 98, respirations 16, blood pressure 91/42. NECK: Showed no thyromegaly or cervical adenopathy. She is wearing mask as per our protocol during the COVID epidemic. ABDOMEN: Obese, but soft. There is an upper midline incision, which is well healed. Palpation generally shows a soft abdomen. There is mild tenderness in the region of the umbilicus. EXTREMITIES: Show no clubbing, cyanosis, or edema. LABORATORY STUDIES: Show white count of 17.2, hematocrit 43.1, platelets of 409,000. Chem profile is normal. Creatinine 0.66, glucose 187. Liver enzymes essentially normal. Lipase normal. Urinalysis negative. CT scan images were reviewed and report also reviewed. Interpretation includes diverticulitis with significant inflammation involving the proximal descending colon as well. There is some suggestion of mural abscess though that is not certain and I do not appreciate it myself on review entirely. There is mildly distended small bowel segments. Appendix was considered normal. Urinary bladder was normal. ASSESSMENT: The patient has a recurrent bout of acute diverticulitis. I discussed with her an option of admission to the hospital with IV antibiotics, stress dose steroids, and intravenous fluids. The patient is quite resistant to this. 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 Additionally, she has a homeless person living in her apartment, who helps to take care of her, who is anticipating moving out in the next day or two. She does not have generalized peritonitis or sign of free perforation. A trial of outpatient therapy with oral antibiotics and a low-fiber diet as long as she is maintaining hydration is a consideration. I discussed with her the special issue in her case of adrenal insufficiency and occasional need for stress dose steroids in this setting. Review of my notes from the past shows we had provided that support before. She is resistant to admission to the hospital and we will embark upon an outpatient approach. She will see us back in followup in the next several days and return to the ER sooner or call sooner if she is worsening in her symptoms. We will prescribe Cipro and Flagyl orally with instructions for a low-fiber diet. I will not modify her steroid medication at this time; she maintains a blood pressure in this range routinely she notes. Electronically Signed By: REKHA WOODALL MD 06/17/19 1305 PATIENT NAME: JADYN SCHMITZ CONSULTATION DATE OF : 69 REPORT #: [id number] PHYSICIAN: ERKHA WOODALL MD PCP: YONG PATEL DO REPORT IS CONFIDENTIAL AND NOT TO BE RELEASED WITHOUT AUTHORIZATION [facility] [address] [place] [address] Signed MD NINA Rubio/MAXX /[id number] cc: MD Yong Hidalgo DO Dr. Floyd Copies: LAURA AMATO MD, JUSTIN DO ~ Electronically Signed By: REKHA WOODALL MD 06/17/19 1305 PATIENT NAME: JADYN SCHMITZ CONSULTATION DATE OF : 69 REPORT #: [id number] PHYSICIAN: REKHA WOODALL MD PCP: YONG PATEL DO REPORT IS CONFIDENTIAL AND NOT TO BE RELEASED WITHOUT AUTHORIZATION
== END 2019-06-16 10:25 | disposition home or self-care (01) ==
LOC: ED 05:28
DX: K57.32 Diverticulitis of large intestine without perforation or abscess without bleeding (principal); J44.9 Chronic obstructive pulmonary disease, unspecified; F17.200 Nicotine dependence, unspecified, uncomplicated; Z88.6 Allergy status to analgesic agent; Z88.1 Allergy status to other antibiotic agents; Z91.018 Allergy to other foods; Z79.899 Other long term (current) drug therapy; Z79.51 Long term (current) use of inhaled steroids; Z79.84 Long term (current) use of oral hypoglycemic drugs
CPT/HCPCS: 74177; 80053; 81001; 83690; 85025; 96361; 96367; 96375; 99284-25; J0744; J1720; J2270; J2405; J7030; Q9967

== ENCOUNTER 2019-09-27 15:45 | Inpatient (IN) | payer MEDICARE, MEDICAID, OTHER ==
[~2019-09-27] VITALS: Ht 157.5 cm; Wt 62.3 kg
--- OUTSIDE RECORDS SUMMARY | ~2019-09-27 | XMS | Encounter Summary ---
Demographics + + + | Address | [address] | | | [place] [address] | + + + | Home Phone | | + + + | Preferred Language | Unknown | + + + | Marital Status | Single | + + + | Mosque Affiliation | 1041 | + + + | Race | Unknown | + + + | Ethnic Group | Unknown | + + + Author + + + | Author | [facility] | | | and [place] | + + + | Organization | [facility] | | | [...] Team Providers + +------+ + | Care General Internal Medicine Doctor Name | Role | Phone | + +------+ + | Juan Cherry DO | PCP | | + +------+ + Reason for Referral Diagnostic/Screening (Routine) +--------+--------+ + + + + | Status | Reason | Specialty | Diagnoses / | Referred By | Referred To | | | | | Procedures | Contact | Contact | +--------+--------+ + + + + | Closed | | Radiology | Diagnoses | Jamaln, | [address] | | | | | Groin pain, | MD Jared | [address] | | | | | right Hx | [address] | [place], | | | | | of coronary | [address] | [place] [address] | | | | | angiogram | [place], | Phone: | | | | | Peritoneal | [place] [address] | [phone] | | | | | bleeding | Phone: | Fax: | | | | | Procedures | [phone] | [phone] | | | | | CT Abdomen | Fax: | | | | | | Pelvis wo | [phone] | | | | | | Contrast | | | +--------+--------+ + + + + Reason for Visit Diagnostic/Screening (Routine) +--------+--------+ + + + + | Status | Reason | Specialty | Diagnoses / | Referred By | Referred To | | | | | Procedures | Contact | Contact | +--------+--------+ + + + + | Closed | | Radiology | Diagnoses | Sharonda, | [address] | | | | | Groin pain, | MD Jared | [address] | | | | | right Hx | [address] | [place], | | | | | of coronary | [address] | [place] [address] | | | | | angiogram | [place], | Phone: | | | | | Peritoneal | [place] [address] | [phone] | | | | | bleeding | Phone: | Fax: | | | | | Procedures | [phone] | [phone] | | | | | CT Abdomen | Fax: | | | | | | Pelvis wo | [phone] | | | | | | Contrast | | | +--------+--------+ + + + + Encounter Details +--------+ + + + + | Date | Type | Department | Care Team | Description | +--------+ + + + + | 03/08/ | Hospital | [facility] | Jared Mcdonough, | Groin pain, right; | | 2014 | Encounter | [facility] [address] | [address] | Hx of coronary | | | | [address] [place], | [place], | angiogram; | | | | [place] [address] | [place] [address] | Peritoneal bleeding | | | | [phone] | [phone] | | | | | | | | +--------+ + + + + Social History + +-------+ +--------+ + | Tobacco Use | Types | Packs/Day | Years | Date | | | | | Used | | + +-------+ +--------+ + | Former Smoker | | 0.5 | 30 | Quit: 07/25/2013 | + +-------+ +--------+ + + +---+---+---+ | Smokeless Tobacco: | | | | | Never Used | | | | + +---+---+---+ + + | Comments: denies any second hand smoke exposure | + + + + +---------+ + | Alcohol Use | Drinks/Week | oz/Week | Comments | + + +---------+ + | Yes | 1 Glasses of wine | 1.0 | yearly | + + +---------+ + + + + | Sex Assigned at | Date Recorded | | | | + + + | Not on file | | + + + documented as of this [...] + + + +---------+ + + | gabapentin | Take 800 mg by mouth | | 0 | 11/07/19 | | | (NEURONTIN) 800 MG | 3 times daily. | | | 12 | | | tablet | | | | | | + + + +---------+ + + | Respiratory | Please provide | 1 each | 0 | 01/14/20 | | | Therapy Supplies | patient with | | | 13 | | | MISCIndications: GARRY | necessary CPAP | | | | | | (obstructive sleep | supplies (she did | | | | | | apnea) | not specify, okay to | | | | | | | send order as | | | | | | | appropriate) | | | | | | | Diagnosis | | | | | | | Code(s)327.23 . | | | | | | | Length of Need 99 | | | | | | | months. Please send | | | | | | | order to [facility]. | | | | | + + + +---------+ + + | Respiratory | Change CPAP back to | 1 each | 99 | 08/11/19 | | | Therapy Supplies | 11-14 cm H2O. All | | | 13 | | | MISC | necessary supplies. | | | | | | | No oxygen bleed in. | | | | | | | Diagnosis | | | | | | | Code(s)327.23. | | | | | | | Length of Need: | | | | | | | Lifetime. Please | | | | | | | send order to [facility] | | | | | | | [facility]. | | | | | | | This is not a new | | | | | | | order, just a change | | | | | | | in settings. | | | | | + + + +---------+ + + | ziprasidone | Take 80 mg by mouth | | 0 | 11/07/19 | | | (GEODON) 80 MG | 2 times daily. | | | 12 | | | capsule | | | | | | + + + +---------+ + + | albuterol (PROAIR | Inhale 2 puffs into | 1 | 5 | 03/22/19 | | | HFA) 90 mcg/puff | the lungs every 6 | Inhaler | | 14 | 8 | | inhaler | hours as needed for | | | | | | | Wheezing or | | | | | | | Shortness of Breath. | | | | | + + + +---------+ + + | albuterol 2.5 mg/3 | Inhale 2.5 mg into | | 0 | 10/19/19 | | | mL nebulizer | the lungs Every 4 | | | 13 | 9 | | solution | hours as needed. | | | | | + + + +---------+ + + | | Take 3 mLs by | 360 mL | 3 | 11/04/19 | | | albuterol-ipratropiu | nebulization every 4 | | | 14 | 5 | | m (DUONEB) 2.5-0.5 | hours as needed. | | | | | | mg/3 mL SOLN | | | | | | + + + +---------+ + + | DULoxetine | Take one by mouth | | 0 | 11/25/19 | | | (CYMBALTA) 60 MG | daily | | | 12 | 5 | | capsule | | | | | | + + + +---------+ + + | | Inhale 1 puff into | 60 each | 5 | 11/24/19 | | | fluticasone-salmeter | the lungs Twice | | | 14 | 5 | | ol (ADVAIR DISKUS) | Daily. | | | | | | 500-50 mcg/puff | | | | | | | diskus inhaler | | | | | | + + + +---------+ + + | levothyroxine | Take 75 mcg by mouth | | 0 | | | | (SYNTHROID, | every morning | | | | 9 | | LEVOTHROID) 75 MCG | (before breakfast). | | | | | | tablet | | | | | | + + + +---------+ + + | LORAZEPAM PO | Take 0.5 mg by mouth | | 0 | | | | | 2 times daily. | | | | 5 | + + + +---------+ + + | Multiple | Take by mouth | | 0 | | | | Vitamins-Minerals | Daily. | | | | 5 | | (MULTIVITAMIN PO) | | | | | | + + + +---------+ + + | omeprazole | Take 40 mg by mouth | | 0 | | | | (PRILOSEC) 20 mg | 2 times daily. | | | | 7 | | capsule | | | | | | + + + +---------+ + + | oxyCODONE 20 MG | Take 10 mg by mouth | | 0 | | | | TABS | as needed. | | | | 5 | + + + +---------+ + + | predniSONE | Take 10 mg by mouth | | 0 | 02/10/20 | | | (DELTASONE) 10 mg | Daily. | | | 14 | 5 | | tablet | | | | | | + + + +---------+ + + | Respiratory | Incentive | 1 each | 99 | 04/12/19 | | | Therapy Supplies | spirometer. Please | | | 14 | 5 | | MISCIndications: | provide instructions | | | | | | Sprain of chest wall | in use. Dx: 848.8 | | | | | | | MADELEINE: 3 months | | | | | + + + +---------+ + + | rizatriptan | Take 1 tablet by | 30 | 6 | 11/24/19 | | | (MAXALT) 10 mg | mouth as needed for | tablet | | 14 | 6 | | tablet | Migraine. May repeat | | | | | | | in 2 hours if | | | | | | | needed | | | | | + + + +---------+ + + | roflumilast | Take 1 tablet by | 30 | 11 | 02/17/20 | | | (DALIRESP) 500 mcg | mouth Daily. | tablet | | 14 | 5 | | tablet | | | | | | + + + +---------+ + + | SPIRIVA HANDIHALER | INHALE ONE CAPSULE | 30 | 0 | 01/28/20 | | | 18 MCG inhalation | BY MOUTH VIA | capsule | | 14 | 5 | | capsule | HANDIHALER DAILY | | | | | + + + +---------+ + + | traMADol (ULTRAM) | Take 50 mg by mouth | | 0 | 11/07/19 | | | 50 mg tablet | 4 times daily. | | | 12 | 7 | + + + +---------+ + + documented as of this encounter Plan of Treatment +--------+---------+ + + + | Date | Type | Specialty | Care Team | Description | +--------+---------+ + + + | 09/27/ | Office | Sleep Medicine | Meghan Garcia MD | | | 2019 | Visit | | [address] | | | | | | [place] | | | | | | [address] | | | | | | | | +--------+---------+ + + + | 11/24/ | Office | Cardiology | [place], | | | 2019 | Visit | | SINDHU Erickson [address] | | | | | | [place] | | | | | | [place] [address] | | | | | | [phone] | | | | | | | | +--------+---------+ + + + | 03/01/ | Office | Pulmonology | Mukul Clark MD | | | 2020 | Visit | | [address] | | | | | | [place] | | | | | | [address] | | | | | | | | +--------+---------+ + + + documented as of this encounter Procedures + +--------+ + + + | Procedure Name | Priori | Date/Time | Associated Diagnosis | Comments | | | ty | | | | + +--------+ + + + | CT ABDOMEN PELVIS WO | Routin | 03/08/2014 | Groin pain, right | Results for this | | CONTRAST | e | 9:32 AM | Hx of coronary | procedure are in the | | | | PST | angiogram | results section. | | | | | Peritoneal bleeding | | + +--------+ + + + documented in this encounter Results CT Abdomen Pelvis wo Contrast (03/08/2014 9:32 AM PST) + + | Specimen | + + | | + + + + + | Narrative | Performed At | + + + | UNENHANCED CT ABDOMEN AND PELVIS 03/08/2014 9:31 AM CLINICAL | MISC[facility] | | HISTORY: groin pain, cardiac catheterization performed February 28, | LAB | | rule out retro peritoneal bleeding COMPARISON: CT abdomen | | | and pelvis February 23, 2012 and multiple previous CTs TECHNIQUE: | | | Axial unenhanced images are performed through the abdomen and pelvis. | | | Coronal and sagittal reformations are also performed. ABDOMEN | | | FINDINGS: Scattered bandlike opacities in the imaged lung bases | | | favor atelectasis/scar. The imaged mediastinum is unremarkable. | | | Surgical clips persist at the level of the gastroesophageal | | | junction. The liver, gallbladder, spleen, pancreas, adrenal glands | | | and kidneys are unremarkable. No renal or ureteral calculus or | | | hydronephrosis is evident. There is extensive sigmoid colonic | | | diverticulosis, without evidence of diverticulitis. The bowel and | | | appendix are otherwise unremarkable. No free air, free fluid, | | | pathologic lymph node enlargement, or hernia is evident. No | | | retroperitoneal hemorrhage is visible. There are stable | | | calcifications along the course of the right gonadal vein. | | | Rightward lumbar curvature persists. There is a stable lucent | | | lesion with internal trabecular coarsening in the left aspect of the | | | L4 vertebral body, consistent with a benign hemangioma. The bones | | | and soft tissues are otherwise unremarkable. PELVIS FINDINGS: | | | The uterus is absent, and the ovaries appear to be absent as well. | | | The bladder is unremarkable. Numerous rounded calcifications | | | persist in the pelvic cavity and are consistent with phleboliths. | | | No free air, free or organized fluid, pathologic lymph node | | | enlargement or hernia is evident. There is mild stranding along the | | | course of the right inguinal canal, and mild stranding is noted | | | along the anterior margin of the right common femoral artery, | | | surrounding a tiny, thin linear high attenuation structure consistent | | | with an Angio-Seal deployed at the time of recent catheterization. | | | The myofascial planes are well-maintained without evidence of | | | significant hemorrhage/hematoma formation. The bones and soft | | | tissues are otherwise unremarkable. IMPRESSION - 1. MILD | | | STRANDING ALONG THE ANTERIOR MARGIN OF THE RIGHT COMMON FEMORAL ARTERY | | | AND ALONG THE RIGHT INGUINAL CANAL, POTENTIALLY REFLECTING RESIDUAL | | | BLOOD PRODUCTS/INFLAMMATION RELATED TO RECENT CATHETERIZATION, | | | WITHOUT DEFINED HEMATOMA OR EVIDENCE OF RETROPERITONEAL HEMORRHAGE. | | | CONSIDER FOLLOW-UP SONOGRAPHY IF FURTHER EVALUATION FOR | | | PSEUDOANEURYSM IS INDICATED. 2. LEFT COLONIC DIVERTICULOSIS | | | WITHOUT EVIDENCE OF DIVERTICULITIS. 3. RIGHTWARD LUMBAR | | | CURVATURE. Results of the study were phoned to Dr. Mcdonough as | | | requested at the time of interpretation on March 08, 2014 at | | | approximately 0950 hours. Dictated and Signed by: Aditya Snyder MD | | | Electronically signed: 03/08/2014 10:06 AM | | + + + + + | Procedure Note | + + | Reed, Rad Results In - 03/08/2014 10:09 [address] ABDOMEN AND PELVIS | | 03/08/2014 9:31 AM CLINICAL HISTORY: groin pain, cardiac catheterization performed | | February 28, ruleout retro peritoneal bleeding COMPARISON: CT abdomen and pelvis | | February 23, 2012 and multiple previous CTs TECHNIQUE: Axial unenhanced images are | | performed through the abdomen and pelvis. Coronal and sagittal reformations are also | | performed. ABDOMEN FINDINGS: Scattered bandlike opacities in the imaged lung bases | | favoratelectasis/scar. The imaged mediastinum is unremarkable. Surgical clipspersist | | at the level of the gastroesophageal junction. The liver, gallbladder,spleen, pancreas, | | adrenal glands and kidneys are unremarkable. No renal orureteral calculus or | | hydronephrosis is evident. There is extensive sigmoidcolonic diverticulosis, without | | evidence of diverticulitis. The bowel andappendix are otherwise unremarkable. No free | | air, free fluid, pathologic lymphnode enlargement, or hernia is evident. No | | retroperitoneal hemorrhage isvisible. There are stable calcifications along the course | | of the right gonadalvein. Rightward lumbar curvature persists. There is a stable | | lucent lesionwith internal trabecular coarsening in the left aspect of the L4 vertebral | | body,consistent with a benign hemangioma. The bones and soft tissues are | | otherwiseunremarkable. PELVIS FINDINGS: The uterus is absent, and the ovaries appear to | | be absent aswell. The bladder is unremarkable. Numerous rounded calcifications | | persist inthe pelvic cavity and are consistent with phleboliths. No free air, free | | ororganized fluid, pathologic lymph node enlargement or hernia is evident. Thereis mild | | stranding along the course of the right inguinal canal, and mildstranding is noted | | along the anterior margin of the right common femoral artery,surrounding a tiny, thin | | linear high attenuation structure consistent with anAngio-Seal deployed at the time of | | recent catheterization. The myofascialplanes are well-maintained without evidence of | | significant hemorrhage/hematomaformation. The bones and soft tissues are otherwise | | unremarkable. IMPRESSION - 1. MILD STRANDING ALONG THE ANTERIOR MARGIN OF THE RIGHT | | COMMON FEMORAL ARTERYAND ALONG THE RIGHT INGUINAL CANAL, POTENTIALLY REFLECTING RESIDUAL | | BLOODPRODUCTS/INFLAMMATION RELATED TO RECENT CATHETERIZATION, WITHOUT DEFINEDHEMATOMA | | OR EVIDENCE OF RETROPERITONEAL HEMORRHAGE. CONSIDER FOLLOW-UPSONOGRAPHY IF FURTHER | | EVALUATION FOR PSEUDOANEURYSM IS INDICATED.2. LEFT COLONIC DIVERTICULOSIS WITHOUT | | EVIDENCE OF DIVERTICULITIS.3. RIGHTWARD LUMBAR CURVATURE.Results of the study were | | phoned to Dr. Mcdonough as requested at the time ofinterpretation on March 08, 2014 at | | approximately 0950 hours.Dictated and Signed by: Aditya Snyder MD Electronically | | signed: 03/08/2014 10:06 AM | | | |IMPRESSION - | |1. MILD STRANDING ALONG THE ANTERIOR MARGIN OF THE RIGHT COMMON FEMORAL ARTERY | |AND ALONG THE RIGHT INGUINAL CANAL, POTENTIALLY REFLECTING RESIDUAL BLOOD | |PRODUCTS/INFLAMMATION RELATED TO RECENT CATHETERIZATION, WITHOUT DEFINED | |HEMATOMA OR EVIDENCE OF RETROPERITONEAL HEMORRHAGE. CONSIDER FOLLOW-UP | |SONOGRAPHY IF FURTHER EVALUATION FOR PSEUDOANEURYSM IS INDICATED. | | | |2. LEFT COLONIC DIVERTICULOSIS WITHOUT EVIDENCE OF DIVERTICULITIS. | | | |3. RIGHTWARD LUMBAR CURVATURE. | | | |Results of the study were phoned to Dr. Mcdonouhg as requested at the time of | |interpretation on March 08, 2014 at approximately 0950 hours. | | | |Dictated and Signed by: Aditya Snyder MD | | Electronically signed: 03/08/2014 10:06 AM | + + + +---------+ + + | Performing | Address | City/State/Zipcode | Phone Number | | Organization | | | | + +---------+ + + | MISCE[facility]ANEOUS LAB | | | [phone] | + +---------+ + + | MISCELANIOUS LAB | | | [phone] | + +---------+ + + documented in this encounter Visit Diagnoses + + | Diagnosis | + + | Groin pain, right | + + | Hx of coronary angiogram Personal history of surgery to heart and great vessels, | | presenting hazards to health | + + | Peritoneal bleeding Hemoperitoneum (nontraumatic) | + + documented in this encounter"
--- OUTSIDE RECORDS SUMMARY | ~2019-09-27 | XMS | Encounter Summary ---
Demographics + + + | Address | [address] | | | [place] [address] | + + + | Home Phone | | + + + | Preferred Language | Unknown | + + + | Marital Status | Single | + + + | Congregational Affiliation | 1041 | + + + | Race | Unknown | + + + | Ethnic Group | Unknown | + + + Author + + + | Author | [facility] | | | and [place] | + + + | Organization | [facility] | | | and [...] Team Providers + +------+ + | Care Taxi Driver Name | Role | Phone | + +------+ + | Juan Cherry DO | PCP | | + +------+ + Encounter Details +--------+ + + + + | Date | Type | Department | Care Team | Description | +--------+ + + + + | 07/24/ | Transcribed | [facility] | Mukul Clark MD | Centrilobular | | 2018 | Orders | [facility] | [address] | emphysema (HCC) | | | | FUNCTION [address] | [address] [place] | (Primary Dx) | | | | [place], | [address] | | | | | [place] [address] | | | | | | [phone] | | | +--------+ + + + + Social History + + [...] [place] | | | | | | [address] | | | | | | | | +--------+---------+ + + + | 11/24/ | Office | Cardiology | [place], | | | 2019 | Visit | | SINDHU Erickson [address] | | | | | | [place] | | | | | | [place] [address] | | | | | | [phone] | | | | | | | | +--------+---------+ + + + | 03/01/ | Office | Pulmonology | Mukul Clark MD | | | 2020 | Visit | | [address] | | | | | | [place] | | | | | | [address] | | | | | | | | +--------+---------+ + + + + +------+--------+ + + | Name | Type | Priori | Associated Diagnoses | Order Schedule | | | | ty | | | + +------+--------+ + + | Pulmonary function | PFT | Routin | Centrilobular | 1 Occurrences | | test | | e | emphysema (HCC) | starting 07/24/2017 | | | | | | until 07/24/2018 | + +------+--------+ + + documented as of this encounter Visit Diagnoses + + | Diagnosis | + + | Centrilobular emphysema (HCC) - Primary | + + documented in this encounter"
--- OUTSIDE RECORDS SUMMARY | ~2019-09-27 | XMS | Encounter Summary ---
Demographics + + + | Address | [address] | | | [place] [address] | + + + | Home Phone | | + + + | Preferred Language | Unknown | + + + | Marital Status | Single | + + + | Christianity Affiliation | 1041 | + + + | Race | Unknown | + + + | Ethnic Group | Unknown | + + + Author + + + | Author | [facility] | | | and [place] | + + + | Organization | [facility] | | | and [...] Team Providers + +------+ + | Care Animal Ecologist Name | Role | Phone | + +------+ + | Juan Cherry DO | PCP | | + +------+ + Reason for Visit +--------+--------+ + | Reason | Onset | Comments | | | Date | | +--------+--------+ + | Other | 05/01/ | | | | 2016 | | +--------+--------+ + Encounter Details +--------+ + + + + | Date | Type | Department | Care Team | Description | +--------+ + + + + | 05/01/ | Telephone | [facility] | Lencho Goss MD | Other | | 2015 | | GASTROENTEROLOGY | [address], [address] | | | | | [address] | [address] [place] | | | | | [address] [place], [place] | [address] | | | | | [address] | | | | | | [phone] | | | +--------+ + + + [...] + + documented as of this encounter Miscellaneous Notes Telephone Encounter - Erica Alex RN - 05/02/2015 4:10 PM PSTReceived referral reques t for second opinion from Dr. Cherry's office; patient of Dr. Sanchez's as well. Spoke with layla and explained Dr. Goss reviewed her records and feels that she should follow-up wit h Dr. 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 She had thought Dr. Goss performed antonia fundoplications which I confirmed that he did not. Recommended she go to [facility] for evaluation and explained we typically refer to Dr. Davin Crocker at [facility] for antonia cases, but she should check with Dr. Cherry first to see where he recommends. He would also need to submit referral. She verbalized understanding. LM on NAYELI Donis voicemail in Dr. Whitaker office regarding Dr. Goss's recommendations to follow-up with Dr. Sanchez or tertiary center. Electronically signed by NAYELI Hernandez 05/02/2015 4:33 PM PSTdocumented in this encounter Plan of Treatment +--------+---------+ + + + | Date | Type | Specialty | Care Team | Description | +--------+---------+ + + + | 09/27/ | Office | Sleep Medicine | Meghan Garcia MD | | | 2019 | Visit | | [address] | | | | | | [place] | | | | | | [address] | | | | | | | | +--------+---------+ + + + | 11/24/ | Office | Cardiology | [place], | | | 2019 | Visit | | SINDHU Erickson [address] | | | | | | [place], | | | | | | [place] [address] | | | | | | [phone] | | | | | | | | +--------+---------+ + + + | 03/01/ | Office | Pulmonology | Mukul Clark MD | | | 2020 | Visit | | [address] | | | | | | [place] | | | | | | [address] | | | | | | | | +--------+---------+ + + + documented as of this encounter Visit Diagnoses Not on filedocumented in this encounter"
--- OUTSIDE RECORDS SUMMARY | ~2019-09-27 | XMS | Encounter Summary ---
Demographics + + + | Address | [address] | | | [place] [address] | + + + | Home Phone | | + + + | Preferred Language | Unknown | + + + | Marital Status | Single | + + + | Moravian Affiliation | [id number] | + + + | Race | Unknown | + + + | Ethnic Group | Unknown | + + + Author + + + | Author | [facility] | | | and [place] | + + + | Organization | [facility] | | | [...] Team Providers + +------+ + | Care Technical Support Assistant Name | Role | Phone | + +------+ + | Juan Cherry DO | PCP | | + +------+ + Reason for Visit + + + | Reason | Comments | + + + | Follow-up | | + + + | Palpitations | | + + + Encounter Details +--------+---------+ + + + | Date | Type | Department | Care Team | Description | +--------+---------+ + + + | 07/24/ | Office | [facility] | [place], | Palpitations | | 2018 | Visit | CARDIOLOGY [address] | SINDHU Erickson [address] | (Primary Dx); | | | | [place], | [place], | Paroxysmal atrial | | | | [place] [address] | [place] [address] | tachycardia (HCC); | | | | [phone] | [phone] | Other migraine | | | | | | without status | | | | | | migrainosus, not | | | | | | intractable; | | | | | | Pericarditis, | | | | | | unspecified | | | | | | chronicity, | | | | | | unspecified type; | | | | | | Chest pain, | | | | | | unspecified type; | | | | | | Abnormal stress | | | | | | test; Syncope, | | | | | | unspecified syncope | | | | | | type | +--------+---------+ + + + Social History [...] + + + | Blood Pressure | 80/56 | 07/24/2017 7:54 AM | | | | | PDT | | + + + + + | Pulse | 68 | 07/24/2017 7:54 AM | | | | | PDT | | + + + + + | Temperature | - | - | | + + + + + | Respiratory Rate | 14 | 07/24/2017 7:54 AM | | | | | PDT | | + + + + + | Oxygen Saturation | 94% | 07/24/2017 7:54 AM | | | | | PDT | | + + + + + | Inhaled Oxygen | - | - | | | Concentration | | | | + + + + + | Weight | 77.8 kg (171 lb 8.3 | 07/24/2017 7:54 AM | | | | oz) | PDT | | + + + + + | Height | 157.5 cm (5' 2") | 07/24/2017 7:54 AM | | | | | PDT | | + + + + + | Body Mass Index | 31.37 | 07/24/2017 7:54 AM | | | | | PDT [...] of this encounter Patient Instructions Patient Instructions Georgina Tanner ARNP - 07/24/2017 7:45 AM PDT1. Start Digoxin 125 mcg once daily 2. Take only 1 tablet of Propanolol every day at 2 pm daily and only take it once a day 3. Follow up in 6-8 weeks documented in this encounter Progress Notes Georgina Tanner ARNP - 07/24/2017 7:45 AM PDTFormatting of this note might be differen t from the original. PATIENT NAME: Rosario Malik : 1965: AGE: 52 y.o. PRIMARY CARE: Juan Cherry DO OUTPATIENT FOLLOW UP VISIT Date of Service: 07/24/2017 HISTORY OF PRESENT ILLNESS: Rosario Malik is a 52 y.o. female with a history of non-cardiac chest pain, inapprop riate atrial tachycardia, paroxysmal atrial tachycardia with palpitations, emphysema, hypoth yroidism obstructive sleep apnea and nocturnal hypoxemia and bipolar disorder. She was last seen 05/06/2017 at which time she was to continue current medical regimen is ef fective; continue present plan and medications, she was been encouraged to go out and walk m ore often, and follow up in 1 year, or sooner with concerns. Since that time, she has been having symptoms of "having palpitations and a hot flash that goes from her waist all the way to her face and then breaks into a sweat almost feeling like she is clinically a panic attack but not feeling anxious". She states that she sweats prof usely for 10:15 minutes and then he goes away. With activity she feels that her heart goes extremely fast. She doesn't exercise but she tries to stay active doing her chores in her h ouse and gardening. She has had no chest pain and no staining of her shortness of breath as she continues using her oxygen through nasal cannula. She states that this had been going on since May. She hasn't had any syncopal or near syncope episodes. ' MEDICAL, SURGICAL, AND PERSONAL HISTORY Past Medical, [...] total hysterectomy Irritable colon Hypoxemia Allergic rhinitis Palpitations Paroxysmal atrial tachycardia Asthma Pulmonary emphysema Migraine Pericarditis Chest pain Abnormal stress test Syncope Interstitial cystitis (chronic) without hematuria Dizziness Impaired mobility and activities of daily living Concussion with brief (less than one hour) loss of consciousness Intractable acute post-traumatic headache CURRENT MEDICATIONS Current Outpatient Prescriptions Medication Sig Dispense Refill ADVAIR HFA 230-21 MCG/ACT inhaler albuterol (PROAIR HFA) 90 mcg/puff inhaler Inhale 2 puffs into the lungs every 6 hours as needed for Wheezing or Shortness of Breath. 1 Inhaler 5 albuterol-ipratropium (DUONEB) 2.5-0.5 mg/3 mL SOLN Take 3 mLs by nebulization every 4 hours as needed. 360 mL 5 fluticasone-salmeterol (ADVAIR HFA) 115-21 MCG/ACT inhaler Inhale 2 puffs into the lung s 2 times daily. 1 Inhaler 5 gabapentin (NEURONTIN) 800 MG tablet Take 800 mg by mouth 3 times daily. hydrOXYzine hydrochloride (ATARAX) 25 mg tablet Take 1 tablet by mouth nightly for 90 d ays. 90 tablet 3 levothyroxine (SYNTHROID, LEVOTHROID) 75 MCG tablet Take 75 mcg by mouth every morning (before breakfast). metFORMIN (GLUCOPHAGE) 500 mg tablet Take 500 mg by mouth 2 times daily (with breakfast & dinner). 3 methylPREDNISolone (MEDROL DOSEPAK) 4 mg tablet Follow package directions. 21 tablet 0 oxybutynin (DITROPAN) 5 mg tablet TAKE 1 TABLET BY MOUTH TWICE DAILY 60 tablet 0 oxygen Inhale into the lungs continuous. 2.5 L unless on her portable then shes on 3 L pantoprazole (PROTONIX) 40 mg tablet TAKE 1 TABLET BY MOUTH EVERY MORNING BEFORE BREAKF AST 90 tablet 1 predniSONE (DELTASONE) 10 mg tablet Take 10 mg by mouth Daily. propranolol (INDERAL) 10 mg tablet Take 10 mg by mouth 2 times daily. She takes this da rigoberto Respiratory Therapy Supplies [facility] Please provide patient with necessary CPAP supplies ( she did not specify, okay to send order as appropriate) Diagnosis Code(s)327.23 . Length of Need 99 months. Please send order to [facility]. 1 each 0 Respiratory Therapy Supplies [facility] Change CPAP back to 11-14 cm H2O. All necessary suppl ies. No oxygen bleed in. Diagnosis Code(s)327.23. Length of Need: Lifetime. Please send orde r to [facility]. This is not a new order, just a change in settings. 1 each 99 roflumilast (DALIRESP) 500 mcg tablet Take 1 tablet by mouth Daily. 30 tablet 3 SUMAtriptan (IMITREX) 100 mg tablet traMADol (ULTRAM) 50 mg tablet Take 50 mg by mouth 4 times daily. 0 ziprasidone (GEODON) 80 MG capsule Take 80 mg by mouth 2 times daily. Current Facility-Administered Medications Medication Dose Route Frequency Provider Last Rate Last Dose sodium bicarbonate 1 mEq/mL injection 10 mEq 10 mL Other Weekly Yinka Melendez 10 mEq at 07/09/17 0815 triamcinolone acetonide (KENALOG-40) 40 mg/mL injection 40 mg 40 mg Other Weekly Andriy Weber MD 40 mg at 07/09/17 0815 ALLERGIES Allergies Allergen Reactions Onion Anaphylaxis Doxycycline Hives Erythromycin Base Other (See Comments) Bloating and swelling, lips swell Macrolides And Ketolides Hives Nsaids Hives Pork Allergy Other (See Comments) GI distress Meperidine Panic attacks ROS Review of Systems Constitutional: Positive for diaphoresis and malaise/fatigue. Respiratory: Positive for shortness of breath. Cardiovascular: Positive for palpitations. Negative for chest pain, leg swelling and PND. Neurological: Positive for weakness. OBJECTIVE: PHYSICAL EXAM BP (!) 80/56 | Pulse 68 | Resp 14 | Ht 1.575 m (5' 2") | Wt 77.8 kg (171 lb 8.3 oz) | SpO2 94% | BMI 31.37 kg/m Physical Exam Constitutional: She appears well-developed and well-nourished. No distress. Female individual in no acute distress Neck: Normal carotid pulses, no hepatojugular reflux [...] side, and 2+ on the left side. Pulmonary/Chest: Effort normal and breath sounds normal. No accessory muscle usage. No resp iratory distress. She has no wheezes. She has no rhonchi. She has no rales. Abdominal: Normal appearance, normal aorta and bowel sounds are normal. She exhibits no abd ominal bruit. There is no hepatosplenomegaly. There is no tenderness. Musculoskeletal: She exhibits no edema. Neurological: She is alert. Gait normal. Skin: Skin is warm and dry. Psychiatric: She has a normal mood and affect. Her mood appears not anxious. She does not e xhibit a depressed mood. Vitals reviewed. ECG: I personally independently reviewed ECG tracing during this visit (interpreted and jennifer led by another provider): Results for orders placed or performed in visit on 05/06/17 ECG 12 lead Result Value Ref Range INTERPRETATION TEXT Normal sinus rhythm Normal ECG When compared with ECG of 16-OCT-2016 08:23, QT has lengthened Confirmed by CLAY MCDONOUGH MD ([id number]) on 05/06/2017 4:53:06 PM LAB RESULTS reviewed during visit today primarily from [facility]: LIPID Lab Results Component Value Date CHOLHDL 5.0 11/01/2015 LDLEX 143 (A) 11/01/2015 HDLEX 51 11/01/2015 TRIGEX 172 (A) 11/01/2015 CHOLEX 228 (A) 11/01/2015 CHEMISTRY Lab Results Component Value Date GLU 100 09/09/2016 GLUEX 108 03/18/2017 NA 138 09/09/2016 NAEX 138 03/18/2017 K 3.7 09/09/2016 KEX 3.8 03/18/2017 CL 107 09/09/2016 CLEX 104 03/18/2017 CO2 23 (L) 09/09/2016 CO2EX 25 03/18/2017 CALCIUM 9.1 09/09/2016 ALKPHOS 65 09/09/2016 AST 17 09/09/2016 ASTEX 19 03/18/2017 ALT 12 09/09/2016 ALTEX 13 03/18/2017 BILITOT 0.7 09/09/2016 CREA 0.72 09/09/2016 BUN 10 09/09/2016 EGFR >60 03/22/2013 EGFREX >60 03/18/2017 CREEX 0.8 03/18/2017 HEMATOLOGY Lab Results Component Value Date WBC 14.7 (H) 09/09/2016 WBCEX 11.2 (A) 03/18/2017 HGB 14.3 09/09/2016 HGBEX 12.5 03/18/2017 HCT 41.8 09/09/2016 HCTEX 37.3 03/18/2017 PLT 436 09/09/2016 PLTEX 417 (A) 03/18/2017 I reviewed records from [facility] for office visit on 04/2017 whic h is summarized in the HPI. 48-Hour Holter monitor 06/27/2017 shows the predominant rhythm is sinus with HR between 51 to 174 bpm, the average HR was 74 bpm during the 47:58 hour recording, there were very rare PV C's (53 total, mean 1.1/hr) with 1 couplet and no triplets, there were occasional PAC's (226 1 total, mean 47.1/hr), there were 364 episodes of sinus bradycardia the longest was 159 nazario ts on Friday 08:41. The minimum rate was 48 bpm on Friday 05:21, there were 59 episodes of sinus tachycardia, the longest was 749 beats on Friday 15:55, the maximum rate was 180 bpm on Friday 15:41 (mowing the lawn from 15:30 to 15:54), diary was returned with no rhyth m changes corresponding with symptoms noted except for tachycardia when patient mowed the la wn, by Clay Mcdonough MD. Above data and testing is reviewed this visit; testing below is historical data unless othe rwise specified. ASSESSMENT: 1. Palpitation secondary to the paroxysmal atrial tachycardia with possible bradycardia A. She has been in her usual state of health until about months ago when she started to notice the fluctuation of her pulses. She stated her heart rate can g o up to 130 per minute while she was sitting in a chair doing nothing. B. Echocardiogram, 08/23/2013 normal systolic left ventricular and v entricular function done at the [facility]. LVEF 78%. C. Holter Monitor 08/16/13 Underlying normal sinus rhythm with rate 56-165 beats per minute, average rate 91, very rare premature ventricular contractions, Naomie y are premature atrial contractions, and 2 episodes of paroxysmal atrial tachycardia, longes t 18 beats, max rte, 150 beats per minute. D. Patient was seen by Dr. Ding on 11/19/13. It was planned to put on a event monitor and consider flecainide 50 mg twice a day. Because of the concern o naomie interaction with psych medications, and it was not started. E. Holter Monitor 09/05/15, shows underlying normal sinus rhythm wi th rate 42-107 BPM, average rate 56, there were 983 runs of bradycardia with minimum rate 35 BPM, no pauses, very rare PAC s, 11 atrial couplets and 5 runs of atrial tachycardia, the longest 37 beats with a maximum rate of 139 BPM, very rare PVC s from 2 different morphol ogies, patient stated she had no symptoms and therefore no diary was returned. F. Holter Monitor 10/16/16 shows The predominant rhythm is sinus w ith HR between 44to 157bpm. The average HR was 72bpm during the 47:43hour recordin g,There were occasionalPVC's (1055total, mean 22.1/hr) with 10 couplets and no triplet s,There were occasional PAC's (1807total, mean 37.8/hr),There were 842 episodes of sinus bradycardia. The longest was 1183 beats on 02:44. The minimum rate was 41 bpm on 05:58,There were 78 episodes of sinus tachycardia. The longest was 289 beats o n 18:15. The maximum rate was 163 bpm on 18:29,Diary was not returned an d no symptoms reported. G. 48-Hour Holter monitor 06/27/2017 shows the predominant rhythm is sinus with H R between 51 to 174 bpm, the average HR was 74 bpm during the 47:58 hour recording, there we re very rare PVC's (53 total, mean 1.1/hr) with 1 couplet and no triplets, there were occasi onal PAC's (2261 total, mean 47.1/hr), there were 364 episodes of sinus bradycardia the long est was 159 beats on Friday 08:41. The minimum rate was 48 bpm on Friday 05:21, there w ere 59 episodes of sinus tachycardia, the longest was 749 beats on Friday 15:55, the maximu m rate was 180 bpm on Friday 15:41 (mowing the lawn from 15:30 to 15:54), diary was returne d with no rhythm changes corresponding with symptoms noted except for tachycardia when candacee nt mowed the lawn, by Clay Mcdonough MD. H. patient today complains of palpitations, tiredness and fatigue and diaphoresis. She ledezma s been active by doing chores around her house and gardening. She denies any syncope or srinivas r syncope episodes. She is in class II of the [place] [employer] functional class. There are no signs or symptoms of overt congestive heart failure. patient has had palpitations with diaphoresis and tiredness. It is noted today that she i s hypotensive. She has been taking propanolol to control her palpitations. This may be con tributing to her hypotension. We will do a trial of decreasing her propranolol to avoid hyp otension and try digoxin for rate control. I have also advised patient to seek medical atte ntion from PCP for issues such as diaphoresis and hot flashes. 2. Non-cardiac chest pain: A. She has had complaint of sharp chest pain that is aggravated whe n she takes deep breath and sits up. Symptom is better when she lays down. She also comp lained of the trouble breathing on exertion. She was seen at the ED of [facility] 3 weeks ago and again 1 week ago. B. Echocardiogram 01/14/2014, shows normal left ventricular size, w all thickness and motion, preserved left ventricular systolic function, LVEF is 65%, grade 1 left ventricular diastolic dysfunction, trace mitral valve regurgitation, trace tricuspid v alve the patient, normal right-sided pressure, normal IVC with normal respiratory collapse, no pericardial effusion noted. C.Left heart catheterization 02/28/14 shows essentially normal, smo othly contoured coronary arteries, LVEF 60%. D. Patient has no further complaints of angina or increase baseli ne dyspnea unless she over exceeds her self. She is trying to go back to pulmonary rehabilit ation. She has had no increase in dyspnea more than her baseline. She is in a class I-II o f [place] [employer] functional class. There is no signs and symptoms of overt conge stive heart failure. There are no fluid retention on physical examination. 3. Emphysema/COPD: A. She is on oxygen. 4. Hypothyroidism 5. Obstructive sleep apnea and nocturnal hypoxemia A. She is utilizing BiPAP with no oxygen. PLAN: 1. patient has had palpitations with diaphoresis and tiredness. It is noted today that she is hypotensive. She has been taking propanolol to control her palpitations. This may be c ontributing to her hypotension. We will do a trial of decreasing her propranolol to avoid h ypotension and try digoxin for rate control. I have also advised patient to seek medical at tention from PCP for issues such as diaphoresis and hot flashes. 2. Decrease propanolol 10 mg once daily around 2:00 in the afternoon. Patient states that her palpitations usually happen around 4:00 in the afternoon 3. Do a trial of digoxin 125 cg by mouth daily 4. Follow up in 6-8 weeks to see if digoxin has improved issues with palpitations Portions of this chart may have been created with [employer] voice recognition software. Occasi onal wrong-word or [...] Medicine | Meghan Garcia MD | | 2019 | Visit | | [address] | | | | | | [place] | | | | | | [id number] | | | | | | | | +--------+---------+ + + + | 11/24/ | Office | Cardiology | [place], | | | 2019 | Visit | | SINDHU Erickson [address] | | | | | | [place], | | | | | | [place] [address] | | | | | | [phone] | | | | | | | | +--------+---------+ + + + | 03/01/ | Office | Pulmonology | Mukul Clark MD | | | 2020 | Visit | | [address] | | | | | | [place] | | | | | | [address] | | | | | | | | +--------+---------+ + + + documented as of this encounter Visit Diagnoses + + | Diagnosis | + + | Palpitations - Primary | + + | Paroxysmal atrial tachycardia (HCC) Paroxysmal supraventricular tachycardia | + + | Other migraine without status migrainosus, not intractable | + + | Pericarditis, unspecified chronicity, unspecified type | + + | Chest pain, unspecified type | + + | Abnormal stress test Other nonspecific abnormal cardiovascular system function study | + + | Syncope, unspecified syncope type | + + documented in this encounter
--- OUTSIDE RECORDS SUMMARY | ~2019-09-27 | XMS | Encounter Summary ---
Demographics + + + | Address | [address] | | | [place] [address] | + + + | Home Phone | | + + + | Preferred Language | Unknown | + + + | Marital Status | Single | + + + | Yarsani Affiliation | 1041 | + + + | Race | Unknown | + + + | Ethnic Group | Unknown | + + + Author + + + | Author | [facility] | | | and [place] | + + + | Organization | [facility] | | | [...] Team Providers + +------+ + | Care Hand Bobbin Cleaner Name | Role | Phone | + +------+ + | Juan Cherry DO | PCP | | + +------+ + Reason for Visit Evaluate & Treat (Routine) +--------+ + + + + + | Status | Reason | Specialty | Diagnoses / | Referred By | Referred To | | | | | Procedures | Contact | Contact | +--------+ + + + + + | Closed | Specialty | Sleep | Diagnoses | Jaime, | [facility] | | | Services | Medicine | Primary | MD Kevin | Center [address] | | | Required | | central | [address] | | | | | sleep apnea | [address] | [place], | | | | | GARRY | [place], | [place] [address] | | | | | (obstructive | [place] [address] | Phone: | | | | | sleep | Phone: | [phone] | | | | | apnea) | [phone] | Fax: | | | | | Procedures | Fax: | [phone] | | | | | [place] POLYSOM | [phone] | | | | | | 6/>YRS SLEEP | | | | | | | W/CPAP 4/> | | | | | | | ADDL ALESSIA | | | | | | | ATTND CPAP | | | +--------+ + + + + + Encounter Details +--------+ + + + + | Date | Type | Department | Care Team | Description | +--------+ + + + + | 02/08/ | Hospital | [facility] | Kevin Sandoval, | | | 2013 | Encounter | MED CTR SLEEP | [address] | | | | | [place] [address] | [place] | | | | | [place] | [address] | | | | | [address] | | | | | | [phone] | | | +--------+ + + + [...] | | | | | order to [facility]. | | | | | + [...] | | | | send order to [facility] | | | | | | | [facility]. | | | | | | [...] + + + +---------+ + + | colchicine | Take 1 tablet by | 60 | 2 | 01/12/20 | | | (COLCRYS) 0.6 mg | mouth 2 times daily. | tablet | | 14 | 4 | | tabletIndications: | | | | | | | Pericarditis | | | | | | + [...] + +---------+ + + | predniSONE | 40 mg. Take 60mg/day | | 0 | 01/21/20 | | | (DELTASONE) 10 mg | x 7 days, then | | | 14 | 4 | | tablet | 30mg/day x 7 days, | | | | | | | then 15mg/day x 7 | | | | | | | days | | | | | + + [...] + + documented as of this encounter Procedure Notes Kevin Sandoval MD - 02/27/2014 10:59 AM PSTProcedure(s): AMB REFERRAL TO SLEEP STUDIES; AMB REFERRAL TO SLEEP STUDIESPre-Procedure Diagnose(s): GARRY on CPAPPost-Procedure Diagnose( s): GARRY on CPAPPositive Airway Pressure Titration Report on Rosario Malik performed o n 02/08/14 Clinical Information: Rosario Malik is a 49 y.o. female who underwent polysomnograp hically guided PAP on 02/08/14. This patient has a history of obstructive sleep apnea based on polysomnographic testing from the past. The rationale for performing a PAP titration st udy includes persistent daytime fatigue despite CPAP. Technical Information: Please see technical data stored as Polysomnography under "Media" se ction in the [email or web address] EMR. The patient brought her own fullface mask. The trial was started at a CPAP pressure of 8 c m H2O given that it appears that this is the patient's at home CPAP pressure. The study was performed without supplemental oxygen. Definitions (The AASM Manual for the Scoring of Sleep and Associated Events, 2007): Apnea: A drop in the peak thermal sensor excursion by 90% or more and a an event duration of at least 10 seconds and at least 90% of the event's duration meets amplitude for apnea. Obstructive Apnea: Event associated with continued or increased inspiratory effort through out the entire period of absent airflow. Central Apnea: Event associated with absent inspiratory effort throughout the entire perio d of absent airflow. Mixed Apnea: Event associated with absent inspiratory effort in the initial portion of the event followed by resumption of inspiratory effort during the second portion of the event. Hypopnea: Nasal pressure excursion dropped by 30% or more from baseline, lasting at least 10 seconds and 90% of the event's desaturation meets this amplitude criteria. This is asso ciated with a 4% or greater desaturation from pre-baseline. Respiratory Event Related Arousal: A sequence of breaths lasting at least 10 seconds hellen cterized by increasing respiratory effort or flattening of the nasal pressure waveform leadi ng to an arousal from sleep - not meeting the criteria for an apnea or hypopnea. Sleep Architecture: Lights out was recorded at 11:04 and lights on was recorded at 7:19. T he latency to sleep onset was 14.5 minutes. The patient slept for 455.5 minutes out of 495.5 minutes of study time resulting an a sleep efficiency of 95.4 minutes. The amount of N1 sleep was 7 minutes and occupied 1.5 % of the Total Sleep Time; the amount of N2 sleep was 232.5 minutes and occupied 51 % of the Total Sleep Time; the amount of N3 s leep was 107.5 minutes and occupied 23.6 % of the Total Sleep Time; the amount of REM sleep was 107.5 minutes and occupied 23.8 of the Total Sleep Time and the latency to REM sleep was 184.5 minutes. The patient spent 62 % of the evening in the supine position. Sleep was mildly fragmented with an overall Arousal Index of 14.4. Only 8 % of arousals we re secondary to respiratory events. Cardiopulmonary Monitoring: The heart rate averaged 69 beats per minute. The rhythm was sin us rhythm. No significant tachycardia/bradycardia arrhythmias were noted. In the course of the evening CPAP was initiated at a pressure of 8 cm H2O and titrated up t o a pressure of 14 cm H2O. A CPAP pressure of 9 the patient's RDI normalized at 3.2. The n adir oxygen saturation at this CPAP pressure was 88 %.. At higher levels of CPAP the patient appeared to have more frequent central apneas and cont inued to desaturate. At pressures of 13, 14 cm H2O the relative amount of sleep time was re latively short making comment regarding the patient's RDI problematic. Limb Movement Monitoring: There were 0 Periodic Limb Movements of which 0 were associated w ith arousals; the PLMS Arousal Index was 0. Interpretation: During this CPAP titration study: 1. The patient's RDI increased to normalize with a few central apneas at a CPAP pressure o f 9 cm H2O. 2. Mild oxygen desaturation occurred despite CPAP. 3. Given this patient's known COPD and mild desaturation supplemental oxygen is recommende d. Suggestions: 1. The principles of Sleep Hygiene should be reviewed with the patient. 2. Adjust CPAP pressure to 9 cm H2O 3. Supplemental oxygen at 1 L per minute through CPAP. Kevin Sandoval MD Pulmonary and Critical Care Medicine [facility]BASE [facility]AN [facility] - 02/18/2014 12:00 AM PSTAssociated Order(s): DIAGNOSTIC REPORT - EXTERNAL SCAN documented in this encounter Plan of Treatment [...] [place] | | | | | | [address] | | | | | | | | +--------+---------+ + + + | 11/24/ | Office | Cardiology | [place], | | | 2019 | Visit | | SINDHU Erickson [address] | | | | | | [place] | | | | | | [place] [address] | | | | | | [phone] | | | | | | | | +--------+---------+ + + + | 03/01/ | Office | Pulmonology | Mukul Clark MD | | | 2020 | Visit | | [address] | | | | | | [facility] [place] | | | | | | [address] | | | | | | | | +--------+---------+ + + + documented as of this encounter Procedures + +--------+ + + + | Procedure Name | Priori | Date/Time | Associated Diagnosis | Comments | | | ty | | | | + +--------+ + + + | DIAGNOSTIC REPORT - | | 02/18/2014 | | | | EXTERNAL SCAN | | 12:00 AM | | | | | | PST | | | + +--------+ + + + documented in this encounter Visit Diagnoses Not on filedocumented in this encounter
--- OUTSIDE RECORDS SUMMARY | ~2019-09-27 | XMS | Encounter Summary ---
Demographics + + + | Address | [address] | | | [place] [address] | + + + | Home Phone | | + + + | Preferred Language | Unknown | + + + | Marital Status | Single | + + + | Druze Affiliation | 1041 | + + + | Race | Unknown | + + + | Ethnic Group | Unknown | + + + Author + + + | Author | [facility] | | | and [place] | + + + | Organization | [facility] | | | and [...] Team Providers + +------+ + | Care Music Promoter Name | Role | Phone | + +------+ + | Juan Cherry DO | PCP | | + +------+ + Encounter Details +--------+ + + + + | Date | Type | Department | Care Team | Description | +--------+ + + + + | 06/19/ | Emergency | [facility] | | Surgical or other | | 2013 | | [facility] EM[facility]GENCY | | procedure not | | | | CENTER [address] | | carried out because | | | | [place] | | of patient's | | | | [address] | | decision (Primary | | | | [phone] | | Dx) | +--------+ + + + + Social [...] | | | | | order to [facility]. | | | | | + [...] | | | | send order to [facility] | | | | | | | [facility]. | | | | | [...] + + + +---------+ + + | ADVAIR DISKUS | INHALE 1 PUFF BY | 60 each | 5 | 05/21/19 | | | 500-50 MCG/DOSE | MOUTH TWICE DAILY | | | 14 | 4 | | diskus inhaler | | | [...] | Meghan Garcia MD | | | 2020 | Visit | | [address] | | | | | | [place] | | | | | | [address] | | | | | | | | +--------+---------+ + + + | 11/24/ | Office | Cardiology | [place], | | | 2019 | Visit | | SINDHU Erickson [address] | | | | | | [address] [place], | | | | | | [place] [address] | | | | | | [phone] | | | | | | | | +--------+---------+ + + + | 03/01/ | Office | Pulmonology | Mukul Clark MD | | | 2020 | Visit | | [address] | | | | | | [place] | | | | | | [address] | | | | | | | | +--------+---------+ + + + documented as of this encounter Visit Diagnoses + + | Diagnosis | + + | Surgical or other procedure not carried out because of patient's decision - Primary | + + documented in this encounter"
--- OUTSIDE RECORDS SUMMARY | ~2019-09-27 | XMS | Encounter Summary ---
Demographics + + + | Address | [address] | | | [place] [address] | + + + | Home Phone | | + + + | Preferred Language | Unknown | + + + | Marital Status | Single | + + + | Jew Affiliation | 1041 | + + + [...] Team Providers + +------+ + | Care Beverage Host Name | Role | Phone | + +------+ + | Juan Cherry DO | PCP | | + +------+ + Reason for Visit +---------+ + | Reason | Comments | +---------+ + | No Show | | +---------+ + Encounter Details +--------+ + + + + | Date | Type | Department | Care Team | Description | +--------+ + + + + | 05/30/ | Documentati | [facility] | Kathi Soto, | No Show | | 2017 | on | MED CTR SPEECH | Speech Pathologist | | | | | THERAPY [address] | | | | | | [place], | | | | | | [place] [address] | | | | | | [phone] | | | +--------+ + + + [...] documented as of this encounter Progress Notes Kathi Soto Speech Pathologist - 05/30/2016 1:32 PM [facility] [address] [place] [address] Cancellation/No Show Date: 05/30/2016 Patient Information Patient Name: Rosario Malik Date of : 1965 Age: 51 y.o. Reason for missed visit: Cancellation- NO brown sourer Phone call placed: yes - pt called to cancel Plan: Continue POC at next scheduled visit. Electronically signed by: Kathi Soto SPEECH PATHO, 05/30/2016 13:32 Patient Name: Rosario Malik/: 1965/ docum ented in this encounter Plan of Treatment +--------+---------+ + + + | Date | Type | Specialty | Care Team | Description | +--------+---------+ + + + | 09/27/ | Office | Sleep Medicine | Meghan Garcia MD | | | 2020 | Visit | | [address] | | | | | | [place] | | | | | | [address] | | | | | | | | +--------+---------+ + + + | 11/24/ | Office | Cardiology | [place], | | | 2019 | Visit | | SINDHU Erickson [address] | | | | | | [place] | | | | | | [place] [address] | | | | | | [phone] | | | | | | | [...]
--- OUTSIDE RECORDS SUMMARY | ~2019-09-27 | XMS | Encounter Summary ---
Demographics + + + | Address | [address] | | | [place] [address] | + + + | Home Phone | | + + + | Preferred Language | Unknown | + + + | Marital Status | Single | + + + | Adventist Affiliation | 1041 | + + + [...] Providers + +------+ + | Care Sales Promotion Officer Name | Role | Phone | + +------+ + | Juan Cherry DO | PCP | | + +------+ + Encounter Details +--------+ + + + + | Date | Type | Department | Care Team | Description | +--------+ + + + + | 08/22/ | Emergency | [facility] | | Surgical or other | | 2013 | | [facility] EM[facility]Y | | procedure not | | | | CENTER [address] | | carried out because | | | | [place] | | of patient's | | | | [address] | | decision (Primary | | | | [phone] | | Dx) | +--------+ + + [...] | | | | | order to [facility]. | | | | | + + [...] | | | | send order to [facility] | | | | | | | [facility]. | | | | | | [...] + + + +---------+ + + | COLLAGEN PO | Take by mouth 3 | | 0 | | | | | times daily. | | | | 4 | + + + +---------+ + + | DULoxetine | Take one by mouth | | 0 | 11/25/19 | | | (CYMBALTA) 60 MG | daily | | | 12 | 5 | | capsule | | | | | | + + + +---------+ + + | ketorolac | Take 10 mg by mouth | | 0 | | | | (TORADOL) 10 MG | every 6 hours as | | | | 4 | | tablet | needed. | | | | | + [...] + + + +---------+ + + | ondansetron | Take 4 mg by mouth | | 0 | | | | (ZOFRAN ODT) 4 mg | every 4 hours as | | | | 4 | | disintegrating | needed. | | | | | | tablet [...] CONTENTS OF | 30 | 0 | 08/04/19 | | | 18 MCG inhalation | ONE CAPSULE ONCE | capsule | | 14 | 4 | | capsule | DAILY [...] | | | | | | [place] [address] | | | | | | [phone] | | | | | | | | +--------+---------+ + + + | 03/01/ Office | Pulmonology | Mukul Clark MD | | | 2020 | Visit | | [address] | | | | | | [place] | | | | | | [address] | | | | | | | | +--------+---------+ + + + documented as of this encounter Procedures + +--------+ + + + | Procedure Name | Priori | Date/Time | Associated Diagnosis | Comments | | | ty | | | | + +--------+ + + + | ED INFORMATION | Routin | 08/22/2013 | | Results for this | | EXCHANGE | e | 6:47 PM | | procedure are in the | | | | PDT | | results section. | + +--------+ + + + documented in this encounter Results ED INFORMATION EXCHANGE (08/22/2013 6:47 PM PDT) + + | Specimen | + + | | + + + + + | Narrative | Performed At | + + + | VISIT TRACKING (3 MO.) Visit Date Location | [facility] | | Type Diagnoses | | | -------- | | | ---- 08/22/2013 18:46 [facility] | | | [facility] Emergency COPD Exacerbation; | | | 08/13/2013 20:38 [facility] | | | Emergency Shortness of Breath; | | | | | | COPD Exasperation; | | | | | | Obstructive chronic bronchitis with (acute) exacerbation; 07/18/2013 | | | 12:06 [facility] Emergency Arm | | | Laceration; | | | Open wound of upper | | | arm, without mention of complication; | | | | | | cut on Lft arm; 07/14/2013 00:15 [facility] | | | [facility] Emergency Shortness of Breath; | | | | | | Chronic obstructive asthma with (acute) | | | exacerbation; 06/19/2013 21:06 [facility] Emergency Obstructive chronic bronchitis with (acute) | | | exacerbation; | | | Shortness of | | | Breath; | | | diff breathing; | | | 06/19/2013 11:03 [facility] | | | Emergency COPD exasperation; 05/23/2013 19:52 [facility] | | | [facility] Emergency Obstructive chronic | | | bronchitis with (acute) exacerbation; | | | | | | Obstructive chronic bronchitis with (acute) exacerbation; | | | | | | sob; | | | | | | Shortness of Breath; VISIT COUNT (1 YR.) Visits | | | Medicaid [place] Dx Location ------ | | | --------- 13 0 [facility] | | | [facility] 13 0 Total | | | Note: Visits indicate total known visits. Medicaid [place] Dx are the | | | number of primary diagnoses on the [facility]'s non-emergent dx list. | | | | | | --- [facility] has no Care Guidelines for this patient. | | + + + + +---------+ + + | Performing | Address | City/State/Zipcode | Phone Number | | Organization | | | | + +---------+ + + | [facility] | | | | + +---------+ + + documented in this encounter Visit Diagnoses + + | Diagnosis | + + | Surgical or other procedure not carried out because of patient's decision - Primary | + + documented in this encounter"
--- OUTSIDE RECORDS SUMMARY | ~2019-09-27 | XMS | Encounter Summary ---
Demographics + + + | Address | [address] | | | [place] [address] | + + + | Home Phone | | + + + | Preferred Language | Unknown | + + + | Marital Status | Single | + + + | Mu-Ism Affiliation | 1041 | + + + | Race | Unknown | + + + | Ethnic Group | Unknown | + + + Author + + + | Author | [facility] | | | and [place] | + + + | Organization | [facility] | | | and [...] Team Providers + +------+ + | Care Financial Analysis Manager Name | Role | Phone | + +------+ + PCP | Unavailable | + +------+ + Encounter Details +--------+ + + + + | Date | Type | Department | Care Team | Description | +--------+ + + + + | 08/09/ | Hospital | [facility] | [place], | | | 2009 | Encounter | MED CTR EMERGENCY | Ozzy Kim MD [address] | | | | | [place] [address] | [address] [facility] | | | | | [place], [place] | [place] [address] | | | | | [address] | [phone] | | | | | [phone] | | | +--------+ + + + [...] [place] | | | | | | [address] | | | | | | | | +--------+---------+ + + + | 11/24/ | Office | Cardiology | [place], | | | 2020 | Visit | | SINDHU Erickson [address] | | | | | | [place] | | | | | | [place] [address] | | | | | | [phone] | | | | | | | | +--------+---------+ + + + | 03/01/ | Office | Pulmonology | Mukul Clark MD | | | 2020 | Visit | | [address] | | | | | | [place] | | | | | | [address] | | | | | | | | +--------+---------+ + + + documented as of this encounter Visit Diagnoses Not on filedocumented in this encounter"
--- OUTSIDE RECORDS SUMMARY | ~2019-09-27 | XMS | Encounter Summary ---
Demographics + + + | Address | [address] | | | [place] [address] | + + + | Home Phone | | + + + | Preferred Language | Unknown | + + + | Marital Status | Single | + + + | Advent Affiliation | 1041 | + + + | Race | Unknown | + + + | Ethnic Group | Unknown | + + + Author + + + | Author | [facility] | | | and [place] | + + + | Organization | [facility] | | | [...] Team Providers + +------+ + | Care Rn Circulating Name | Role | Phone | + [...] Description | +--------+--------+ + + + | 07/22/ | Refill | [facility] | Andriy Weber | Medication Refill | | 2017 | | [address] | [address] | | | | | [place] | [place] | | | | | [address] | [place] [address] | | | | | [phone] | [phone] | | | | | | | | +--------+--------+ + + + [...] | | | | | | [place] [address] | | | | | | [phone] | | | | | | | [...]
--- OUTSIDE RECORDS SUMMARY | ~2019-09-27 | XMS | Encounter Summary ---
Demographics + + + | Address | [address] | | | [place] [address] | + + + | Home Phone | | + + + | Preferred Language | Unknown | + + + | Marital Status | Single | + + + | Worship Affiliation | 1041 | + + + | Race | Unknown | + + + | Ethnic Group | Unknown | + + + Author + + + | Author | [facility] | | | and [place] | + + + | Organization | [facility] | | [...] Team Providers + +------+ + | Care Card Hand Name | Role | Phone | + +------+ + PCP | Unavailable | + +------+ + Encounter Details +--------+ + + + + | Date | Type | Department | Care Team | Description | +--------+ + + + + | 02/09/ | Hospital | [facility] | Alexi Guaman, | | | 2009 | Encounter | MED CTR EMERGENCY | [address] | | | | | [place] [address] | [place] | | | | | [place] | [address] | | | | | [address] | | | | | | [phone] | | | +--------+ + + + [...] 2019 | Visit | | [address] | | | | | | [place] | | | | | | [address] | | | | | | | | +--------+---------+ + + + | 11/24/ | Office | Cardiology | [place], | | | 2019 | Visit | | SINDHU Erickson [address] | | | | | | [place], | | | | | | [place] [address] | | | | | | [phone] | | | | | | | | +--------+---------+ + + + | 03/01/ | Office | Pulmonology | Muklu Clark MD | | | 2020 | Visit | | [address] | | | | | | [place] | | | | | | [address] | | | | | | | | +--------+---------+ + + + documented as of this encounter Visit Diagnoses Not on filedocumented in this encounter"
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
--- OUTSIDE RECORDS SUMMARY | ~2019-09-27 | XMS | Encounter Summary ---
Demographics + + + | Address | [address] | | | [place] [address] | + + + | Home Phone | | + + + | Preferred Language | Unknown | + + + | Marital Status | Single | + + + | Latter Day Affiliation | 1041 | + + + | Race | Unknown | + + + | Ethnic Group | Unknown | + + + Author + + + | Author | [facility] | | | and [place] | + + + | Organization | [facility] | | [...] Team Providers + +------+ + | Care Booking Clerk Name | Role | Phone | + +------+ + | Juan Cherry DO | PCP | | + +------+ + Reason for Visit +--------+--------+ + | Reason | Onset | Comments | | | Date | | +--------+--------+ + | Other | 11/18/ | pt was to call | | | 2014 | | +--------+--------+ + Encounter Details +--------+ + + + + | Date | Type | Department | Care Team | Description | +--------+ + + + + | 11/18/ | Telephone | [facility] [place] | Kevin Sandoval, | Other (pt was to | | 2013 | | PULMONARY [address] | MD [address] | call) | | | | [place], | [place] | | | | | [place] [address] | [address] | | | | | [phone] | | | +--------+ + + + [...] this encounter Miscellaneous Notes Telephone Encounter - Marilyn Osborne RN - 11/18/2013 4:13 PM PDTRelayed this message asiya oPnce. Okay per patient. 4: 13 PM PDTTelephone Encounter - Kevin Sandoval MD - 11/18/2013 3:19 PM PDTPlease tell th e patient that I have been trying to reach a specific radiologist for 2 days now and have be en unable to connect. I hope to be able to do so tomorrow. elephone Encounter - Marilyn Osborne RN - 014 2:15 PM PDTGretchen called stating that she was to call here if she did not hear back f jared Sandoval regarding her chest CT by noon today. documented in this encounter Plan of Treatment [...] [place] | | | | | | [address] | | | | | | | | +--------+---------+ + + + | 11/24/ | Office | Cardiology | [place] | | | 2019 | Visit | | SINDHU Erickson [address] | | | | | | [place] | | | | | | [place] [address] | | | | | | [phone] | | | | | | | | +--------+---------+ + + + | 03/01/ | Office | Pulmonology | Mukul Clark MD | | | 2020 | Visit | | [address] | | | | | | [place] | | | | | | [address] | | | | | | | | +--------+---------+ + + + documented as of this encounter Visit Diagnoses Not on filedocumented in this encounter"
--- OUTSIDE RECORDS SUMMARY | ~2019-09-27 | XMS | Encounter Summary ---
Demographics + + + | Address | [address] | | | [place] [address] | + + + | Home Phone | | + + + | Preferred Language | Unknown | + + + | Marital Status | Single | + + + | Orthodox Affiliation | 1041 | + + + | Race | Unknown | + + + | Ethnic Group | Unknown | + + + Author + + + | Author | [facility] | | | and [place] | + + + | Organization | [facility] | | [...] Team Providers + +------+ + | Care Spindle Sander Name | Role | Phone | + [...] + + | 07/24/ | Office | [facility] | [place], | Palpitations | | 2018 | Visit | CARDIOLOGY [address] | SINDHU Erickson [address] | (Primary Dx); | | | | [place], | [place], | Paroxysmal atrial | | | | [place] [address] | [place] [address] | tachycardia (HCC); | | | | [phone] | [phone] | Other migraine | | | | [...] takes this da rigoberto Respiratory Therapy Supplies [facility] [place] Please provide patient with necessary CPAP supplies ( she did not specify, okay to send order as appropriate) Diagnosis Code(s)327.23 . Length of Need 99 months. Please send order to [facility]. 1 each 0 Respiratory Therapy Supplies [facility] [place] Change CPAP back to 11-14 cm H2O. All necessary suppl ies. No oxygen bleed in. Diagnosis Code(s)327.23. Length of Need: Lifetime. Please send orde r to [facility]. This is not a new order, just [...] has lengthened Confirmed by CLAY MCDONOUGH MD ([id number]) on 05/06/2017 4:53:06 PM LAB RESULTS reviewed during visit today primarily from [facility]: LIPID Lab Results Component Value Date [...] 417 (A) 03/18/2017 I reviewed records from [facility] for office visit on 04/2017 whic [...] and v entricular function done at the [facility]. LVEF 78%. C. Holter Monitor 08/16/13 Underlying normal sinus rhythm with rate 56-165 beats per minute, average rate 91, very rare premature ventricular contractions, Naomie y are premature atrial contractions, and 2 episodes of paroxysmal atrial tachycardia, longes t 18 beats, max rte, 150 beats per minute. D. Patient was seen by Dr. Dign on 11/19/13. It was planned to put [...] She is in class II of the [place] [employer] functional class. There are no [...] She was seen at the ED of [facility] 3 weeks ago and again 1 week [...] is in a class I-II o f [place] [employer] functional class. There is no [...] this chart may have been created with [employer] voice recognition software. Occasi onal wrong-word or [...] | | | | | | [place] [address] | | | | | | [phone] | | | | | | | | +--------+---------+ + + + | 03/01/ | Office | Pulmonology | Mukul Clark MD | | | 2020 | Visit | | [address] | | | | | | [place] | | | | | | [address] | | | | | | | [...]
--- OUTSIDE RECORDS SUMMARY | ~2019-09-27 | XMS | Encounter Summary ---
Demographics + + + | Address | [address] | | | [place] [address] | + + + | Home Phone | | + + + | Preferred Language | Unknown | + + + | Marital Status | Single | + + + | Restoration Affiliation | 1041 | + + + | Race | Unknown | + + + | Ethnic Group | Unknown | + + + Author + + + | Author | [facility] | | | and [place] | + + + | Organization | [facility] | | | [...] Team Providers + +------+ + | Care Server Manager Name | Role | Phone | + +------+ + PCP | Unavailable | + +------+ + Encounter Details +--------+ + + + + | Date | Type | Department | Care Team | Description | +--------+ + + + + | 11/27/ | Hospital | [facility] | Ozzy Delcid, | | | 2009 | Encounter | [facility] | [address] | | | | | [address] [place] | [address] [place], | | | | | [place], [place] | [place] [address] | | | | | [address] | [phone] | | | | | [phone] | | | +--------+ + + + [...] [place] | | | | | | [address] | | | | | | | | +--------+---------+ + + + | 11/24/ | Office | Cardiology | [place], | | | 2020 | Visit | | SINDHU Erickson [address] | | | | | | [place] | | | | | | [place] [address] | | | | | | [phone] | | | | | | | | +--------+---------+ + + + | 03/01/ | Office | Pulmonology | Mukul Clark MD | | | 2020 | Visit | | [address] | | | | | | [place] | | | | | | [address] | | | | | | | | +--------+---------+ + + + documented as of this encounter Visit Diagnoses Not on filedocumented in this encounter"
--- OUTSIDE RECORDS SUMMARY | ~2019-09-27 | XMS | Encounter Summary ---
Demographics + + + | Address | [address] | | | [place] [address] | + + + | Home Phone [...] Team Providers + +------+ + | Care Employment Service Specialist Name | Role | Phone | [...] Description | +--------+--------+ + + + | 08/31/ | Refill | [facility] | Kevin Sandoval, | Medication Refill | | 2013 | | PULMONARY [address] | MD [address] | | | | | [place], | [place] | | | | | [place] [address] | [address] | | | | | [phone] | | | +--------+--------+ + + + Social History + +-------+ [...] [place] | | | | | | [id number] | | | | | | | | +--------+---------+ + + + | 11/24/ | Office | Cardiology | [place] | | | 2019 | Visit | | SINDHU Erickson [address] | | | | | | [place] | | | | | | [place] [address] | | | | | | [phone] | | | | | | | [...]
--- OUTSIDE RECORDS SUMMARY | ~2019-09-27 | XMS | Encounter Summary ---
Demographics + + + | Address | [address] | | | [place] [address] | + + + | Home Phone | | + + + | Preferred Language | Unknown | + + + | Marital Status | Single | + + + | Caodaism Affiliation | 1041 | + + + [...] Team Providers + +------+ + | Care Pipefitter Helper Name | Role | Phone | + [...] Description | +--------+--------+ + + + | 12/06/ | Refill | [facility] [place] | Kevin Sandoval, | Medication Refill | | 2013 | | PULMONARY [address] | MD [address] | | | | | [place], | [place] | | | | | [place] [address] | [address] | | | | | [phone] | | | +--------+--------+ + + + [...] [place] | | | | | | [address] | | | | | | | | +--------+---------+ + + + | 11/24/ | Office | Cardiology | [place] | | | 2019 | Visit | | SINDHU Erickson [address] | | | | | | [place] | | | | | | [place] [address] | | | | | | [phone] | | | | | | | [...]
--- OUTSIDE RECORDS SUMMARY | ~2019-09-27 | XMS | Encounter Summary ---
Demographics + + + | Address | [address] | | | [place] [address] | + + + | Home Phone [...] Team Providers + +------+ + | Care Manifest Clerk Name | Role | Phone | + +------+ + | Juan Cherry DO | PCP | | + +------+ + Reason for Visit + + + | Reason | Comments | + + + | Urinary Pain | | + + + Encounter Details +--------+ + + + + | Date | Type | Department | Care Team | Description | +--------+ + + + + | 07/28/ | Clinical | [facility] [place] UROLOGY | Bishop Hoffman, | Pyuria (Primary Dx) | | 2018 | Support | [address] | MD [address] | | | | | Ayaka Marley [place] | [place] | | | | | [address] | [address] | | | | | [phone] | | | +--------+ + + + [...] documented as of this encounter Progress Notes Virgen Soliz RN - 07/28/2017 2:30 PM PDTPatient presents today for a straight cath UA. Patient states she has been in extreme pain. After sterile prep, 2% lidocaine inserted for patient comfort 15 Fr straight catheter inserted into bladder with 430cc or orange clou dy urine drained from bladder. Patient states she has been taking Azo for the bladder pain. Patient wanted to know what to do about the extreme pain since tylenol was not working and s he is allergic to Ibuprofen. I advised her we could not give her any pain medication but if she needed she could always go to the ER for further evaluation. She states she "cannot go t hrough another night of this" and will go to the ER for evaluation. Urine will be sent to [facility] since it was positive for nitrites. documented in this encounter Plan of Treatment +--------+---------+ + + + | Date | Type | Specialty | Care Team | Description | +--------+---------+ + + + | 09/27/ | Office | Sleep Medicine | Meghan Garcia MD | | | 2019 | Visit | | [address] | | | | | | [place] | | | | | | [address] | | | | | | | | +--------+---------+ + + + | 11/24/ | Office | Cardiology | [place], | | | 2019 | Visit | | SINDHU Erickson [address] | | | | | | [place], | | | | | | [place] [address] | | | | | | [phone] | | | | | | | | +--------+---------+ + + + | 03/01/ | Office | Pulmonology | Mukul Clark MD | | | 2020 | Visit | | [address] | | | | | | [place] | | | | | | [address] | | | | | | | | +--------+---------+ + + + documented as of this encounter Procedures + +--------+ + + + | Procedure Name | Priori | Date/Time | Associated Diagnosis | Comments | | | ty | | | | + +--------+ + + + | URINALYSIS, | Routin | 07/28/2017 | Pyuria | Results for this | | MICROSCOPIC ONLY, | e | 2:52 PM | | procedure are in the | | WITH CULTURE IF | | PDT | | results section. | | INDICATED | | | | | + +--------+ + + + | POCT URINALYSIS, | Routin | 07/28/2017 | Pyuria | Results for this | | AUTO WITH CONF | e | 2:51 PM | | procedure are in the | | | | PDT | | results section. | + +--------+ + + + documented in this encounter Results Urinalysis, Microscopic Only, with Culture if Indicated (07/28/2017 2:52 PM PDT) + + + + + + | Component | Value | Ref Range | Performed | Pathologist | | | | | At | Signature | + + + + + + | White Blood | 0-2 | 0 - 2 /HPF | [facility] | | | Cells, | | | [facility] | | | Urine | | | MEDICAL | | | | | | CENTER - | | | | | | LABORATORY | | + + + + + + | Red Blood | 0-2 | 0 - 2 /HPF | [facility] | | | Cells, | | | [facility] | | | Urine | | | MEDICAL | | | | | | CENTER - | | | | | | LABORATORY | | + + + + + + | Squamous | 0-2 | 0 - 2 /LPF | [facility] | | | Epithelial | | | [facility] | | | Cells, | | | MEDICAL | | | Urine | | | CENTER - | | | | | | LABORATORY | | + + + + + + | Bacteria, | Negative | Negative /HPF | [facility] | | | Urine | | | [facility] | | | | | | MEDICAL | | | | | | CENTER - | | | | | | LABORATORY | | + + + + + + + + | Specimen | + + | Urine - Urine | | specimen obtained | | via indwelling | | urinary catheter | | (specimen) | + + + + + + + | Performing | Address | City/State/Zipcode | Phone Number | | Organization | | | | + + + + + | [facility] | [address] | [place] | [phone] | | [facility] | | [address] | | | - LABORATORY | | | | + + + + + POCT Urinalysis Dipstick Automated (07/28/2017 2:51 PM PDT) + + + + + + | Component | Value | Ref Range | Performed | Pathologist | | | | | At | Signature | + + + + + + | Color, UA, | [place] (A) | Yellow, Light | | | | POC | | Yellow | | | + + + + + + | Clarity, | Cloudy | | | | | UA, POC [...] 1.001 - 1.030 | | | | [place], | | | | | | UA, [...] + + + + | Urobilinoge | 1.0 E.U./dL | 0.2, Negative, | | | | n, UA, POC | | Normal, < 0.2 | | | | | | mg/dL, 1 mg/dL, | | | | | | < 0.2 E.U./dl, | | | | | | 1.0 E.U./dL, | | | | | | 0.2 mg/dL | | | + + + + + + | Nitrite, | Positive (A) | Negative | | | | [...] + + + + | Bilirubin | | Negative | | | | Confirmatio | | | | | | n by | | | | | | Ictotest, | | | | | | Urine [...]
--- OUTSIDE RECORDS SUMMARY | ~2019-09-27 | XMS | Encounter Summary ---
Demographics + + + | Address | [address] | | | [place] [address] | + + + | Home Phone | | + + + | Preferred Language | Unknown | + + + | Marital Status | Single | + + + | Caodaism Affiliation | 1041 | + + + | Race | Unknown | + + + | Ethnic Group | Unknown | + + + Author + + + | Author | [facility] | | | and [place] | + + + | Organization | [facility] | | | [...] Providers + +------+ + | Care Hand Binder Stripper Name | Role | Phone | + +------+ + | Juan Cherry DO | PCP | | + +------+ + Reason for Visit +--------+--------+ + | Reason | Onset | Comments | | | Date | | +--------+--------+ + | Other | 06/17/ | | | | 2018 | | +--------+--------+ + Encounter Details +--------+ + + + + | Date | Type | Department | Care Team | Description | +--------+ + + + + | 06/17/ | Telephone | [facility] [place] | [place], | Leora | | 2017 | | CARDIOLOGY [address] | SINDHU Erickson [address] | | | | | [place], | [place], | | | | | [place] [address] | [place] [address] | | | | | [phone] | [phone] | | | | | | | [...] this encounter Miscellaneous Notes Telephone Encounter - Beronica Vera RN - 06/18/2017 9:01 AM PDTPatient notified, ho lter monitor scheduled for Friday, June 23, 2017 at 0900 .................................. .........Beronica Vera RN on 06/18/17 at 9:13 elephone [facility]gen [facility] RN - 06/17/2017 12:02 PM PDTHolter monitor ordered. Message left f or patient to call back to let her know and transfer her to imaging to schedule to get it do ne before July 03. P DTTelephone Encounter - Georgina Tanner ARNP - 06/17/2017 10:51 AM PDTHave her wear a 48 hour Holter monitor before her appointment Electronically signed by: SINDHU Vang 06/17/2017 10:[address] - Beronica Vera RN - 06/17/2017 9:34 AM PDTPatient called, c/o flushing that sta rt at her head and goes down to her waist. It started doing this infrequently now it happens daily, not at the same time. Denies that it is around taking her medications. It last now a t least 10-15 minutes, pulse goes up to 124 and down to 88, has shortness of breath and ches t tightness, "like an asthma attack". Declined to go to ED, request appointment. After the rona brito stops, she has sweating for a least one hour. Went to primary care, he did blood wor k and found she had a uti, she was treated. The episodes continue, I encouraged her to go to ED if she could during an episode. I transferred her to schedule an appointment with Georgina MANLEY the first available appointment. .......................................... .Beronica Vera RN on 06/17/17 at 10:28 documented in thi s encounter Plan of Treatment +--------+---------+ + + + | Date | Type | Specialty | Care Team | Description | +--------+---------+ + + + | 09/27/ | Office | Sleep Medicine | Meghan Garcia MD | | | 2020 | Visit | | [address] [facility] | | | | | | [place] | | | | | | [id number] | | | | | | | | +--------+---------+ + + + | 11/24/ | Office | Cardiology | [place], | | | 2019 | Visit | | SINDHU Erickson [address] | | | | | | [place] | | | | | | [place] [address] | | | | | | [phone] | | | | | | | | +--------+---------+ + + + | 03/01/ | Office | Pulmonology | Mukul Clark MD | | | 2020 | Visit | | [address] | | | | | | [place] | | | | | | [phone] | | | | | | | | +--------+---------+ + + + + +------+--------+ + + | Name | Type | Priori | Associated Diagnoses | Order Schedule | | | | ty | | | + +------+--------+ + + | Holter monitor - 48 | ECG | Routin | Shortness of | Expected: 06/17/2017 | | hour | | e | breath Racing heart | (Approximate), | | | | | beat | Expires: 06/17/2018 | + +------+--------+ + + documented as of this encounter Visit Diagnoses + + | Diagnosis | + + | Shortness of breath - Primary | + + | Racing heart beat Tachycardia, unspecified | + + documented in this encounter
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
--- OUTSIDE RECORDS SUMMARY | ~2019-09-27 | XMS | Encounter Summary ---
Demographics + + + | Address | [address] | | | [place] [address] | + + + | Home Phone | | + + + | Preferred Language | Unknown | + + + | Marital Status | Single | + + + | Yazidi Affiliation | 1041 | + + + | Race | Unknown | + + + | Ethnic Group | Unknown | + + + Author + + + | Author | [facility] | | | and [place] | + + + | Organization | [facility] | | | [...] Team Providers + +------+ + | Care Truck Manager Name | Role | Phone | + +------+ + | Juan Cherry DO | PCP | | + +------+ + Reason for Visit + + + | Reason | Comments | + + + | Discharge Without | | | Visit | | + + + Encounter Details +--------+ + + + + | Date | Type | Department | Care Team | Description | +--------+ + + + + | 06/24/ | Documentati | [facility] | Lakeshia Cleary, | Discharge Without | | 2017 | on | [facility] THERAPY PT | PT [address] | Visit | | | | OP [address] | [place] | | | | | [place] | [id number] | | | | | [address] | | | | | | [phone] | | | +--------+ + + + [...] encounter Progress Notes Lakeshia Barkley, PT - 06/24/2016 11:10 [facility] [address] [place] [address] Physical Therapy Discharge Note This discharge is associated with the evaluation completed on 05/01/16. Date: 06/24/2016 Patient Information Patient Name: Rosario Malik Date of : 1965 Age: 51 y.o. No diagnosis found. Date of Onset: No data was found Referring Provider: Juan Cherry Total Number of Visits Completed: 5 Total Cancellations: 2 Total No Shows: 0 Patient has failed to return to therapy for further treatment. Goal status is unknown at th is time. This note serves as discharge from therapy. Patient cancelled and did not wish to reschedule. Patient cancelled last scheduled appt maria t was intended to be formal DC visit; stated that she was fine doing her HEP and did not nee d to come in. At this time we find it necessary to discharge this patient from therapy servi zhanna. The last progress note or the patients initial evaluation will serve as objective status fo r purposes of discharge. Electronically signed by: Lakeshia Barkley PT, 06/24/2016 11:10 Patient Name: Rosario Malik/: 1965/ documented in [...] [place] | | | | | | [place] [address] | | | | | | [phone] | | | | | | | | +--------+---------+ + + + | 03/01/ | Office | Pulmonology | Mukul Clark MD | | | 2020 | Visit | | [address] | | | | | | [place] | | | | | | [address] | | | | | | | | +--------+---------+ + + + documented as of this encounter Visit Diagnoses Not on filedocumented in this encounter"
--- OUTSIDE RECORDS SUMMARY | ~2019-09-27 | XMS | Encounter Summary ---
Demographics + + + | Address | [address] | | | [place] [address] | + + + | Home Phone [...] + | Author | [facility] | | | and [place] | + + + | Organization | [facility] | | | and [...] Team Providers + +------+ + | Care Lead Press Operator Name | Role | Phone | + +------+ + | Juan Cherry DO | PCP | | + +------+ + Encounter Details +--------+ + + + + | Date | Type | Department | Care Team | Description | +--------+ + + + + | 08/30/ | Hospital | [facility] | Yecenia Gallegos | | | 2012 | Encounter | MED CTR EMERGENCY | MD [address] | | | | | CENTER [address] | [facility], | | | | | [place] | [place] [address] | | | | | [address] | [phone] | | | | | [phone] | | | +--------+ + + + [...] | | | | send order to [facility] | | | | | | | [facility]. | | | | | [...] orally daily | 30 | 0 | 08/11/19 | | | (DELTASONE) 10 mg | for 3 days then | tablet | | 13 | 3 | | tablet | decrease by 1 tab | | | | | | | every 3 days. | | | | | + + + +---------+ + + | traMADol (ULTRAM) | Take 50 mg by mouth | | 0 | 11/07/19 | | | 50 mg tablet | 4 times daily. | | | 12 | 7 | + + + +---------+ + + documented as of this encounter ED Notes Yecenia Gallegos MD - 08/31/2012 11:27 PM [place], [place] [id number] Patient Name: JADYN SCHMITZ Provider: Unit #: [id number] Location: : 1965 DATE: 08/30/2012 PRIMARY CARE PHYSICIAN: Dr. Juan Cherry DO. CHIEF COMPLAINT: Shortness of breath. HISTORY OF PRESENT ILLNESS: This is a 47-year-old female who comes ambulatory to the emerg ency department. The patient has a history of asthma/COPD. She does smoke, has quit as of a week ago. She indicates she was previously on a prednisone taper, ordered by Dr. Micky reynoso. She completed that about a week ago. She complains of dyspnea over the last 24 hours to the point she is doing her nebulizer treatments "every hour." She has been up all night. Evangelista russell is also using Combivent and Advair. She is not getting any relief, so she came in for jacques luation. There has not been any measured fever. There has not been any productive cough. PAST MEDICAL HISTORY: Asthma/COPD, fibromyalgia, osteoarthritis, hysterectomy . MEDICATIONS 1. Albuterol. 2. Tylenol. 3. Vitamin D. 4. Duloxetine. 5. Advair. 6. Gabapentin. 7. Levothyroxine. 8. Multivitamin. 9. Tramadol. 10. Geodon. ALLERGIES: 1. ERYTHROMYCIN. 2. TETRACYCLINE. 3. DEMEROL. 4. NSAIDS. REVIEW OF SYSTEMS She has had an influenza vaccine in 2011 and a Pneumovax. She complains of chronic body ac hes all over. PHYSICAL EXAMINATION VITAL SIGNS: Temperature 99.1, respirations 24, heart rate 123, blood pressure 104/65, O2 saturation 94% on room air, and it was 92% at the time of my assessment. 61 kg. GENERAL: A nontoxic appearing female who looks fatigued. SKIN: Warm, dry. No cyanosis. HEENT: Head normocephalic, atraumatic. Pupils equal, round, reactive to light. HEART: Tachycardic rate, regular rhythm. Bedside monitor shows sinus tachycardia. LUNGS: She has diffuse inspiratory and expiratory wheezes throughout bilaterally. No crack les. She is speaking in full sentences without difficulty. No cough really. She is orthopne ic, but not tripoding, not overtly tachypneic. NEUROLOGIC: The patient is awake, alert, has a somewhat flat affect. EMERGENCY DEPARTMENT COURSE: The patient was given a DuoNeb treatment here and reassessed. She had no real significant improvement. She was given prednisone 60 mg p.o. and an albute rol 10 mg hour-long treatment. On reevaluation, her lungs are virtually clear throughout bi laterally. She was feeling markedly improved. She was able to assume a recumbent position a nd she is pleased with this. I talked with her about early followup with her night nurse or her primary care physician. Given that she just completed a prednisone taper of 40 mg, w e will go ahead and start her on 60 mg pulsed at this time and she will probably need a pro longed wean or adjustment of her medication. I strongly encouraged her to stay quit smoking and see Dr. London or Dr. Cherry for a recheck this week, continue her breathing tr eatments. At this point she is ready to go home and get some rest. She has not slept all ni ght. IMPRESSION ACUTE CHRONIC OBSTRUCTIVE PULMONARY DISEASE EXACERBATION. DICTATED BY: Yecenia Gallegos MD Emergency Medicine JOB #: [id number] EXT JOB #:[id number] cc: Loreta London MD <<Signature on File>> Yecenia Gallegos MD09/28/12 1524 <Electronically signed by Yecenia Gallegos MD> documented in t his encounter Plan of [...] | | | | | | [place] [address] | | | | | | [phone] | | | | | | | | +--------+---------+ + + + | 03/01/ | Office | Pulmonology | Mukul Clark MD | | | 2020 | Visit | | [address] | | | | | | [place] | | | | | | [address] | | | | | | | | +--------+---------+ + + + documented as of this encounter Visit Diagnoses Not on filedocumented in this encounter
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
--- OUTSIDE RECORDS SUMMARY | ~2019-09-27 | XMS | Encounter Summary ---
Demographics + + + | Address | [address] | | | [place] [address] | + + + | Home Phone [...] Team Providers + +------+ + | Care Filling Machine Operator Name | Role | Phone | + +------+ + | Juan Cherry DO | PCP | | + +------+ + Encounter Details +--------+ + + + + | Date | Type | Department | Care Team | Description | +--------+ + + + + | 07/15/ | Orders Only | [facility] [place] | Marilyn Osborne, | COPD exacerbation | | 2013 | | PULMONARY [address] | RN | ([facility]); COPD (chronic | | | | [place], | | obstructive | | | | [place] [address] | | pulmonary disease) | | | | [phone] | | ([facility]) | +--------+ + + + + Social [...] [place] | | | | | | [place] [address] | | | | | | [phone] | | | | | | | | +--------+---------+ + + + | 03/01/ | Office | Pulmonology | Mukul Clark MD | | | 2020 | Visit | | [address] | | | | | | [place] | | | | | | [address] | | | | | | | | +--------+---------+ + + + documented as of this encounter Visit Diagnoses + + | Diagnosis | + + | COPD exacerbation (HCC) Obstructive chronic bronchitis with exacerbation | + + | COPD (chronic obstructive pulmonary disease) (HCC) Chronic airway obstruction, not | | elsewhere classified | + + documented in this encounter"
--- OUTSIDE RECORDS SUMMARY | ~2019-09-27 | XMS | Encounter Summary ---
Demographics + + + | Address | [address] | | | [place] [address] | + + + | Home Phone [...] + + + | Author | [facility] | | | and [place] | + + + | Organization | [facility] | | | [...] Team Providers + +------+ + | Care Info Print Press Operator Name | Role | Phone | + +------+ + PCP | Unavailable | + +------+ + Encounter Details +--------+ + + + + | Date | Type | Department | Care Team | Description | +--------+ + + + + | 01/24/ | Hospital | [facility] | Avi Guru Garzon, | | | 2009 | Encounter | [facility] | MD [address] | | | | | CENTER [address] | [facility] | | | | | [place], [place] | [place] [address] | | | | | [address] | [phone] | | | | | [phone] | | | +--------+ + + + [...] [place] | | | | | | [address] | | | | | | | | +--------+---------+ + + + | 11/24/ | Office | Cardiology | [place], | | | 2019 | Visit | | SINDHU Erickson [address] | | | | | | [address] | | | | | | [place] [address] | | | | | | [phone] | | | | | | | | +--------+---------+ + + + | 03/01/ | Office | Pulmonology | Mukul Clark MD | | | 2020 | Visit | | [address] | | | | | | [place] | | | | | | [address] | | | | | | | | +--------+---------+ + + + documented as of this encounter Visit Diagnoses Not on filedocumented in this encounter"
--- OUTSIDE RECORDS SUMMARY | ~2019-09-27 | XMS | Encounter Summary ---
Demographics + + + | Address | [address] | | | [place] [address] | + + + | Home Phone | | + + + | Preferred Language | Unknown | + + + | Marital Status | Single | + + + | Advent Affiliation | 1041 | + + + | Race | Unknown | + + + | Ethnic Group | Unknown | + + + Author + + + | Author | [facility] | | | and [place] | + + + | Organization | [facility] | | | [...] Team Providers + +------+ + | Care Salesforce Developer Name | Role | Phone | + +------+ + PCP | Unavailable | + +------+ + Encounter Details +--------+ + + + + | Date | Type | Department | Care Team | Description | +--------+ + + + + | 08/25/ | [facility] | [facility] | | | | 2009 | Encounter | MED CTR XRAY [address] | | | | | | [address] | | | | | | [place] [address] | | | | | | [phone] | | | +--------+ + + + [...] [place] | | | | | | [id number] | | | | | | | | +--------+---------+ + + + | 11/24/ | Office | Cardiology | [place], | | | 2019 | Visit | | SINDHU Erickson [address] | | | | | | [address] | | | | | | [place] [address] | | | | | | [phone] | | | | | | | | +--------+---------+ + + + | 03/01/ | Office | Pulmonology | Mukul Clark MD | | | 2020 | Visit | | [address] | | | | | | [place] | | | | | | [address] | | | | | | | | +--------+---------+ + + + documented as of this encounter Visit Diagnoses Not on filedocumented in this encounter"
--- OUTSIDE RECORDS SUMMARY | ~2019-09-27 | XMS | Encounter Summary ---
Demographics + + + | Address | [address] | | | [place] [address] | + + + | Home Phone | | + + + | Preferred Language | Unknown | + + + | Marital Status | Single | + + + | Advent Affiliation | 1041 | + + + | Race | Unknown | + + + | Ethnic Group | Unknown | + + + Author + + + | Author | [facility] | | | and [place] | + + + | Organization | [facility] | | [...] Team Providers + +------+ + | Care Machine Chocolate Molder Name | Role | Phone | + +------+ + | Juan Cherry DO | PCP | | + +------+ + Reason for Visit Auth/Cert +--------+--------+ + + + + | Status | Reason | Specialty | Diagnoses / | Referred By | Referred To | | | | | Procedures | Contact | Contact | +--------+--------+ + + + + | | | | Diagnoses | | [place], | | | | | Primary | | Jesus Lloyd DO | | | | | localized | | [address] | | | | | osteoarthros | | [place] | | | | | is of hand, | | [place], [place] | | | | | unspecified | | [address] | | | | | laterality | | Phone: | | | | | Primary | | [phone] | | | | | localized | | Fax: | | | | | osteoarthros | | [phone] | | | | | is of hand, | | | | | | | unspecified | | | | | | | laterality | | | | | | | [M19.049 | | | | | | | Procedures | | | | | | | GA REPAIR | | | | | | | INTERCARP/CA | | | | | | | RP-METACARP | | | | | | | JT Right | | | | | | | Basal Joint | | | | | | | Arthroplasty | | | +--------+--------+ + + + + Encounter Details +--------+---------+ + + + | Date | Type | Department | Care Team | Description | +--------+---------+ + + + | 06/18/ | Surgery | [facility] | Jesus Brady | Right Basal Joint | | 2019 | | [facility] | J, DO [address] | Arthroplasty, tendon | | | | [address] | [place], [place] | interposition | | | | [place], [place] | [address] | | | | | [address] | [phone] | | | | | [phone] | | | +--------+---------+ + + + [...] +---------+ + | Yes | | | glass of wine once | | | | | year | + + +---------+ + + + [...] + + + | Blood Pressure | 105/49 | 06/18/2018 4:45 PM | | | | | PDT | | + + + + + | Pulse | 66 | 06/18/2018 4:45 PM | | | | | PDT | | + + + + + | Temperature | 36.4 C (97.5 F) | 06/18/2018 3:51 PM | | | | | PDT | | + + + + + | Respiratory Rate | 14 | 06/18/2018 4:20 PM | | | | | PDT | | + + + + + | Oxygen Saturation | 97% | 06/18/2018 4:45 PM | | | | | PDT | | + + + + + | Inhaled Oxygen | - | - | | | Concentration | | | | + + + + + | Weight | 67.6 kg (149 lb 0.5 | 06/18/2018 1:02 PM | | | | oz) | PDT | | + + + + + | Height | 154.9 cm (5' 1") | 06/18/2018 1:02 PM | | | | | PDT | | + + + + + | Body Mass Index | 28.16 | 06/18/2018 1:02 PM | | | | | PDT [...] as of this encounter Discharge Instructions Instructions Daniela Caro RN - 06/17/2018ANESTHESIA GERARDO Follow all instructions you are given for how long not to eat or drink before your proce dure. Be sure your doctor knows what medicines and drugsyou take. This includes senr-syz-ohz nter medicines, herbs, supplements, alcohol or other drugs. You will be asked when those wer e last taken. Have an adult family member or friend drive you home after the procedure. For the first 24 hours after your surgery: ? Do not drive or use heavy equipment. ? Do not make important decisions or sign legal documents. If important decisions or signin g legal documents is necessary during the first 24 hours after surgery, have a trusted famil y member or spouse act on your behalf. ? Avoid alcohol. ? Havea responsible adultstay with you.He or shecan watch for problems and help adam p you safe. Date Last Reviewed: 01/25/201619995547-0393 [employer]. [address] [place] [address], [place] [address]. All righ ts reserved. This information is not intended as a substitute for professional medical care. Always follow your healthcare professional's instructions. [facility] Post-op Instructions - Thumb Surgery The following instructions are meant to guide you following surgery until your first post-o perative visit 7-12 days later. For any problems or questions, please call our office at [phone], Friday through Friday, 9:00 am - 5:00 pm. 1) Sleep in position of comfort. 2) Ice the thumb for at least the first 3-5 days. 3) Keep the dressing clean and dry. Do not remove splint. 4) Take your pain medications on a regular scheduled dose (every 4-6 hours) for the first 2 4 hours, starting the moment you get home. When the nerve block wears off, it is usually naomie y abrupt. You will be chasing the pain (bad strategy) if you are not already medicated. 5) After the first 24 hours, you can adjust your intake of pain medications on an as needed basis. Try not to completely cut off all medications at once. 6) All medicine refills must be handled during regular business hours. On-call doctors afte r hours and on week-ends don't know you and will not give you any refills. These instructions supersede any conflicting orders that you may have received from the [facility], advice from friends, family members, [employer] leaders, grocery store clerks, fox lee, Anu, Dr. Jain, Dr. Weinstein, sports heroes, etc. If unsure, please call our office. Thank you, Jesus Brady D.O. [facility] [address] [place] [address] Your post op appointment is scheduled for Friday06/29/18 at 9:15am. Please check in at 8:45 am for X-rays at the [facility]. documented in this encounter Medications at Time of Discharge + + + +---------+ + + | Medication | Sig | Dispensed | Refills | Start | End Date | | | | | | Date | | + + + +---------+ + + | fluticasone | 1 spray by Nasal | | 0 | | | | (FLONASE) 50 | route Daily. | | | | | | mcg/nasal spray | | | | | | + [...] | | | | | order to [facility]. | | | | | + [...] | | | | send order to [facility] | | | | | | | [facility]. | | | | | | | This is not a new | | | | | | | order, just a change | | | | | | | in settings. | | | | | + + + +---------+ + + | SUMAtriptan | Take 100 mg by mouth | | 0 | | | | (IMITREX) 100 mg | as needed for | | | | | | tablet | Migraine. | | | | | + + [...] + + + +---------+ + + | Albuterol Sulfate | Inhale 2 puffs into | | 0 | | | | (VENTOLIN HFA IN) | the lungs 2 times | | | | 9 | | | daily. | | | | | + + + +---------+ + + | digoxin (LANOXIN) | Take 1 tablet by | 90 | 3 | 02/20/20 | | | 125 mcg tablet | mouth Daily. | tablet | | 18 | 9 | + + + +---------+ + + | | Inhale 2 puffs into | | 0 | | | | fluticasone-salmeter | the lungs 2 times | | | | 0 | | ol (ADVAIR HFA) | daily. | | | | | | 230-21 MCG/ACT | | | | | | | inhaler | | | | | | + + + +---------+ + + | | Take 1-2 tablets by | 30 | 0 | 06/19/19 | | | HYDROcodone-acetamin | mouth every 6 hours | tablet | | 19 | 9 | | ophen (NORCO) 10-325 | as needed for Pain. | | [...] metoprolol | Take 0.5 tablets by | 90 | 3 | 03/17/19 | | | tartrate (LOPRESSOR) | mouth 2 times daily. | tablet | | 19 | 9 | | 25 mg tablet | | [...] +---------+ + + | pantoprazole | Take 40 mg by mouth | | 0 | | | | (PROTONIX) 20 mg | every morning | | | | 9 | | tablet | (before breakfast). | | | | | + + + +---------+ + + | potassium chloride | Take 1 tablet by | 90 | 1 | 03/13/19 | | | (KLOR-CON M20) 20 | mouth Daily. | tablet | | 19 | 9 | | mEq ER tablet | | | | | | + + + +---------+ + + | predniSONE | Take 10 mg by mouth | | 0 | | | | (DELTASONE) 10 mg | Daily. | | | | 0 | | tablet | | | | | | + + + +---------+ + + | roflumilast | Take 1 tablet by | 30 | 3 | 09/14/19 | | | (DALIRESP) 500 mcg | mouth Daily. | tablet | | 15 | 0 | | tablet | | | | | | + + + +---------+ + + documented as of this encounter H&P Notes Jesus Brady DO - 06/18/2018 2:06 PM PDTSURGICAL INTERIM HISTORY & PHYSICAL UPDATE Pt. Name/Age/: Rosario Malik 53 y.o. 1965 Date of admission: 06/18/2018 The current H&P was reviewed. The patient was reexamined. Re-evaluation of the patient co nfirms the necessity for the scheduled procedure. No change has occurred in the patient s condition since the H&P was completed less than 30 days ago. VERIFICATION OF CONSENT (PARQ) The patient was counseled regarding the procedure, its indications, risks, potential compli cations and alternatives. Any questions were answered. Consent was obtained. Electronically signed by: Jesus Brady DO, 06/18/2018 14:06 [facility] Jesus Brady DO at 0 06/18/2018 2:06 PM Elías Steinberg PA-C - 06/15/2018 11:03 AM PDTSubjective F/u Right Wrist/Basal Joint Arthritis History of Present Illness Rosario Malik is a 53 yr old ambidextrous female who presents today for f/u on right wris t pain. She reminds this started on/around 10 years ago. No specific injury or incident occu rred that she can recall. She has previously had cortisone injections, the last being admini stered on 06/11/17 by me. She states it was beneficial for approximately four months. She was recently evaluated by Elías Last PA-C, and ew radiographs were obtained at [facility]. She de nies any swelling, numbness or tingling. Patient rates her pain 6/10, but 9/10 when it pops or flares up. She locates the pain at the CMC joint, and it radiates up to her elbow. She states she had EMG studies done years ago. Patient states she is using CBD edibles for niles n relief. She feels her ROM is very limited in the right thumb. Patient is open to options whether it be conservative or surgical intervention and is here today to discuss this. Review of Systems Constitutional: no fever and no chills. . The patient presents with complaints of right radial wrist pain. Integumentary: no rashes and no skin lesions. Neurological: no numbness and no tingling. Past Medical History History of Abnormal laboratory test result (R89.9) History of Abnormal weight gain (R63.5) History of Anxiety (F41.9) History of Arthritis History of Atypical chest pain (R07.89) History of Benign neoplasm of skin of trunk (D23.5) History of Benign neoplasm of skin, upper extremity (D23.60) History of Bipolar disorder, current episode manic without psychotic features (F31.10) History of Breast cancer screening (Z12.31) History of Change in bowel habits (R19.4) History of Chills (R68.83) History of Closed Fracture Of The Proximal Phalanx Of The Right Second Toe History of Cramping of hands (R25.2) History of Current tobacco use (Z72.0) History of Diverticulosis of colon (K57.30) History of Early satiety (R68.81) History of Emphysema (J43.9) History of Encounter for screening colonoscopy (Z12.11) History of Galactorrhea not associated with childbirth (N64.3) History of 3 History of abdominal pain (Z87.898) History of carcinoid syndrome (Z86.39) History of chest pain (Z87.898) History of colon polyps (Z86.010) History of dehydration (Z86.39) History of depression (Z86.59) History of diverticulitis of colon (Z87.19) History of facial pain (Z87.898) History of fatigue (Z87.898) History of fibromyositis (Z87.39) History of fibromyositis (Z87.39) History of heartburn (Z87.898) History of nausea (Z87.898) History of neoplasm of uncertain behavior (Z86.03) History of neoplasm of uncertain behavior of skin (Z86.03) History of obesity (Z86.39) History of suicidal ideation (Z86.59) History of weight gain (Z87.898) History of weight loss (Z87.898) History of Hypogonadism, male (E29.1) History of Lightheadedness (R42) 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 History of Osteoarthritis History of Other specified symptoms associated with female genital organs (N94.89) Personal history of asthma (Z87.09) History of Posterior tibial tendonitis (M76.829) History of Posterior tibial tendonitis (M76.829) History of Postoperative examination (Z09) History of Rash (R21) History of Right ear pain (H92.01) History of Sore throat (J02.9) History of Sprain of metatarsophalangeal joint (S93.529A) History of Surgical menopause (E89.40) History of Toe pain (M79.676) History of Visit for screening mammogram (Z12.31) Surgical History History of Colonoscopy History of Esophagogastric Fundoplasty Chanelle Fundoplication History of Hernia Repair History of Hysterectomy History of Knee Surgery History of Oophorectomy - Bilateral (Removal Of Both Ovaries) Family History Mother Family history of Thyroid Disorder Father Family history of Asthma Family history of Obesity Maternal Grandmother Family history of lung cancer (Z80.1) Family History Family history of Cancer Family history of Diabetes Mellitus Family history of Diverticulitis Of Colon Family history of kidney disease (Z84.1) Family history of Heart Disease Family history of Hyperlipidemia Family history of Hypertension Family history of Obesity Family history of Rheumatoid Arthritis Current Meds Advair HFA 230-21 MCG/ACT Inhalation Aerosol; INHALE 2 PUFFS, BY MOUTH, TWICE DAILY; Therapy: 01Nov2015 to Recorded Albuterol Sulfate (2.5 MG/3ML) 0.083% Inhalation Nebulization Solution; USE 1 UNIT DOSE EVERY 4-6 HOURS NEEDED FOR WHEEZING ; Therapy: 14Aug2012 to (Last Rx:[id number]) Requested for: 14Aug2012 Ordered Cetirizine HCl - 10 MG Oral Tablet; TAKE ONE TABLET BY MOUTH EVERY DAY; Therapy: 25Jun2015 to (Evaluate:28Apr2018) Requested for: 02Jun2017; Last Rx:02Jun2017 Ordered Daliresp 500 MCG Oral Tablet; TAKE ONE TABLET BY MOUTH EVERY DAY; Therapy: 24May2013 to (Evaluate:20Jun2018) Requested for: 67Xkt2634; Last Rx:[id number] Ordered diazePAM 10 MG Oral Tablet; take 1 tablet 30 minutes prior to appointment; Therapy: 79Xbe1198 to (Last Rx:[id number]) Ordered Digoxin 125 MCG Oral Tablet; TAKE 1 TAB ONCE DAILY; Therapy: 31Jul2017 to Recorded Fluticasone Propionate 50 MCG/ACT Nasal Suspension; INSTILL TWO SPRAYS IN EACH NOSTRIL DAILY; Therapy: 23Mar2018 to (Evaluate:20Aug2018) Requested for: 23Mar2018; Last Rx:23Mar2018 Ordered Gabapentin 800 MG Oral Tablet; TAKE 1 TABLET BY MOUTH 3 TIMES DAILY; Therapy: 50Rcp8843 to (Evaluate:72Rex6008) Requested for: 08Lnk3479; Last Rx:[id number] Ordered hydrOXYzine HCl - 25 MG Oral Tablet; TAKE 1 TABLET AT BEDTIME Requested for: 86Rns3464; Last Rx:[id number]; Status: ACTIVE - Transmit to Pharmacy - Awaiting Verification Ordered Ipratropium-Albuterol 0.5-2.5 (3) MG/3ML Inhalation Solution; Therapy: 26Hkp3932 to Recorded Levothyroxine Sodium 75 MCG Oral Tablet; TAKE ONE TABLET BY MOUTH EVERY DAY; Therapy: 14Aug2012 to (Evaluate:12Uky1953) Requested for: 01Jun2018; Last Rx:01Jun2018 Ordered Magnesium 200 MG Oral Tablet; TAKE 1 TABLET DAILY DIRECTED; Therapy: 17Dec2017 to Recorded Meclizine HCl - 12.5 MG Oral Tablet; TAKE 1 TABLET 3 TIMES DAILY NEEDED; Therapy: 90Nzz1876 to (Evaluate:20Jun2017) Requested for: 57Ucj3439; Last Rx:[id number] Ordered metFORMIN HCl - 500 MG Oral Tablet; TAKE 1 TABLET BY MOUTH EVERY 12 HOURS WITH FOOD; Therapy: 92Vkb5725 to (Evaluate:27Jul2018) Requested for: 28Apr2018; Last Rx:28Apr2018; Status: ACTIVE - Transmit to Pharmacy - Awaiting Verification Ordered Nystatin 010643 UNIT/ML Mouth/Throat Suspension; SWISH AND SWALLOW 5 ML 4 TIMES DAILY FOR 7 DAYS; Therapy: 84Lcy3492 to (Last Rx:[id number]) Requested for: 78Whq3864 Ordered Oxybutynin Chloride 5 MG Oral Tablet; Take 1 daily; Therapy: (Recorded:18Mar2017) to Recorded Pantoprazole Sodium 40 MG Oral Tablet Delayed Release; TAKE 1 TABLET DAILY; Therapy: 18Mar2017 to Recorded predniSONE 10 MG Oral Tablet; Take one tablet daily; Therapy: 35Uvr0783 to (Evaluate:14Jun2015) Requested for: 09Jun2015 Recorded Propranolol HCl - 10 MG Oral Tablet; TAKE ONE TABLET BY MOUTH TWICE DAILY; Therapy: 93Oiw2375 to (Evaluate:14Jun2018) Requested for: 16Dec2017; Last Rx:16Dec2017 Ordered SUMAtriptan Succinate 100 MG Oral Tablet; TAKE 1 TAB BY MOUTH DAILY AT ONSET OF HEADACHE. MAY REPEAT DOSE IN 2 HOURS IF NEEDED. NTE 4 TABS/24HRS; Therapy: 02Jul2016 to (Evaluate:08Ckb7341) Requested for: 19Jan2018; Last Rx:19Jan2018 Ordered traMADol HCl - 50 MG Oral Tablet; TAKE 1 TABLET BY MOUTH FOUR TIMES DAILY NEEDED FOR PAIN; Therapy: 04Oct2010 to (Last Rx:26May2018) Requested for: 27May2018 Ordered Tylenol TABS; Therapy: (Recorded:27Feb2012) to Recorded Ziprasidone HCl - 80 MG Oral Capsule; TAKE 1 CAPSULE BY MOUTH TWICE DAILY WITH MEALS; Therapy: 03May2011 to (Evaluate:16Jun2018) Requested for: 18Mar2018; Last Rx:18Mar2018 Ordered Allergies Doxycycline Hyclate CAPS Demerol SOLN Dicyclomine HCl CAPS Erythromycin Derivatives NSAIDs Onion Extract POWD Physical Exam Tired appearing 53yo female seen alone today, on portable O2 Neurologic: Mental status:. the patient was oriented to person, place and time. Memory: short term memory intact and remote memory intact. Attention: the attention span was normal and normal concentrating ability. Observed mood and affect was appropriate. Cranial Nerves:. the cranial nerves were intact. Sensory exam:. the sensory exam was normal. light touch was intact. Coordination: balance was intact. gait is normal. posture is normal. Biceps: right 1+, left 1+. Triceps: right 1+, left 1+. Brachioradialis: right 1+, left 1+. Patella: right 1+, left 1+. Ankle Jerk: right 1+, left 1+. Bilateral hands examined today : Left hand has intact skin and no deformity noted Non tender throughout the hand and fingers ROM full in all planes Strength full in all mm groups Sensory exam normal Pulse normal at the wrist No ligamentous instability noted Right hand has intact skin and hypertrophy of the thumb basal joint Non-tender except around the CMC joint ROM full in all planes except for mild limits at the CMC joint Triggering not appreciated nor are there any signs of Dupuytren's contractures Strength full in all mm groups Sensory exam normal Pulse normal at the wrist No ligamentous instability noted HEART: Regular. LUNGS: Clear. ABDOMEN: Soft. Nontender, nondistended. Positive bowel tones x4. NEURO: Intact without lateralizing deficits. Results/Data hand xrays show CMC joint OA of the right thumb Assessment CMC DJD(carpometacarpal degenerative joint disease), localized primary (M19.049) Right wrist pain (M25.531) Hussein Ponce is tired of the wrist pain and has asked that we do basal joint arthroplasty with tendon interposition This is scheduled for later this month We discussed the risks and benefits of the surgery as well as alternatives to surgery. Thes e include, but are not limited to, bleeding; infection; blood clots; breathing difficulty; p ulmonary embolism; need for more surgery; damage to nerves, blood vessels, muscles and other anatomic structures; complications associated with anesthesia, up to and including . T he patient understands that orthopedic implants may be used during the surgery. The patient understands these risks and understands the proposed surgery and has had their questions ans wered. CS-Active Problems 1. Abdominal pain (R10.9) 2. Acid reflux (K21.9) 3. Age related osteoporosis (M81.0) 4. Allergic rhinitis (J30.9) 5. Anxiety (F41.9) 6. Atrophic rhinitis (J31.0) 7. Benzodiazepine dependence (F13.20) 8. Bipolar disorder, current episode manic without psychotic features (F31.10) 9. Bladder pain (R39.89) 10. Bradycardia (R00.1) 11. Bunion (M21.619) 12. Chronic gastroesophageal reflux disease (K21.9) 13. Chronic interstitial cystitis (N30.10) 14. Chronic nasal congestion (R09.81) 15. Chronic pain of toe, right (M79.674,G89.29) 16. CMC DJD(carpometacarpal degenerative joint disease), localized primary (M19.049) 17. Congenital pes planus (Q66.50) 18. COPD (chronic obstructive pulmonary disease) (J44.9) 19. COPD exacerbation (J44.1) 20. Decreased bone density (M85.80) 21. Depression (F32.9) 22. Disorder of bone density and structure, unspecified (M85.9) 23. Dizziness (R42) 24. Dysphagia (R13.10) 25. Ephelides (L81.2) 26. Extrinsic asthma, with acute exacerbation (J45.901) 27. Fatigue (R53.83) 28. Fibromyalgia (M79.7) 29. Flat foot (M21.40) 30. Foot pain (M79.673) 31. Gastroparesis (K31.84) 32. Hammertoe (M20.40) 33. Hand pain (M79.643) 34. Headache (R51) 35. Headache, migraine (G43.909) 36. Hot flashes (R23.2) 37. Housing problems (Z59.9) 38. Hypermobility of joint (M24.9) 39. Hyperprolactinemia (E22.1) 40. Hypertension (I10) 41. Hypokalemia (E87.6) 42. Hypothyroidism (E03.9) 43. Insomnia (G47.00) 44. Irritable bowel syndrome (K58.9) 45. 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 Long-term current use of steroids 47. Mass of soft tissue (M79.9) 48. Memory loss (R41.3) 49. Muscle weakness (M62.81) 50. Myalgia and myositis 51. Nausea (R11.0) 52. Neck mass (R22.1) 53. Nerve pain (M79.2) 54. Neuritis (M79.2) 55. Nevus (D22.9) 56. Oral thrush (B37.0) 57. Pain, joint, shoulder (M25.519) 58. Palpitations (R00.2) 59. Pituitary microadenoma (D35.2) 60. Plantar fasciitis (M72.2) 61. Posterior tibial tendinitis (M76.829) 62. Postmenopausal atrophic vaginitis (N95.2) 63. Post-traumatic stress disorder (F43.10) 64. Prediabetes (R73.03) 65. Radiculopathy (M54.10) 66. Right foot pain (M79.671) 67. Right hip pain (M25.551) 68. Right wrist pain (M25.531) 69. Sacroiliac pain (M53.3) 70. 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 Shortness of breath (R06.02) 72. Sinus tachycardia (R00.0) 73. Sleep apnea (G47.30) 74. Slipped Chanelle fundoplication (K91.89) 75. Surgical menopause (E89.40) 76. Tachycardia (R00.0) 77. Tension type headache (G44.209) 78. Toe pain (M79.676) 79. Urinary hesitancy (R39.11) 80. Urinary urgency (R39.15) 81. Vertigo (R42) 82. Vitamin D deficiency (E55.9) 83. Weakness (R53.1) Signatures Electronically signed by : Jesus Brady D.O.; Jun 01 2018 11:04AM PST (Author) documented in this encounter Miscellaneous Notes Op Note - Jesus Brady DO - 06/18/2018 3:39 PM PDT [facility] Operative Note Patient: Rosario Malik Date: 06/18/2018 PREOPERATIVE DIAGNOSIS: Right thumb CMC joint OA Postoperative diagnosis: Same SURGICAL PROCEDURE: Procedure(s) (LRB): Right Basal Joint Arthroplasty, tendon interposition (Right) INDICATIONS: Arthritis IMPLANTS: * No implants in log * surgeon: Jesus Brady DO assistant buyer: Elías Last PA-C ANESTHESIOLOGIST: Anesthesiologist: Ra Cardnoa MD ANESTHESIA: General with Block FLUID: see record Estimated blood loss: 5ml complications: None. SPECIMENS: None. TOURNIQUET TIME: 41 minutes DESCRIPTION OF PROCEDURE: In the preoperative area of the right wrist was marked. Patient was then taken to the operative suite and placed into the supine position where upon all sravani ny prominences were well-padded. Dr. Cardona had administered an ultrasound guided regional bl ock in the preoperative area and at this time a general anesthetic was administered through an LMA. She was kept in the supine position and a tourniquet was placed on her right upper arm but not inflated at this time. The right arm was then sterilely prepped and draped in t he standard fashion. We then performed a surgical pause to confirm the appropriate surgical site. I then proceeded to anesthetize the proposed incision sites using half percent Marcaine wit h epinephrine. We then began our approach to the basal joint by making a 3 cm incision cent ered over the basal joint extending up over the base of the thumb metacarpal. I bluntly dis sected down through the soft tissue, protecting the sensory nerve. I then made the arthroto my and visualized the trapezium. I skeletonized the proximal 2 cm of the metacarpal. I the n used an osteotome to split the trapezium in half and then removed it in its entirety using a Rongeur. We took a fluoroscopy shot to confirm that the entire trapezium had been remove d and this was the case. I visualized the FCR tendon attaching of the base of the metacarpa l. We then thoroughly irrigated this incision and then turned to the harvesting of the FCR ten don were this was performed using a 2 incision technique. I then used a whipstitch to captu re the proximal end of the FCR tendon. It was then subluxed into the previous incision at t he base of the metacarpal. A bur was then used to create a tunnel starting at the base of t he metacarpal and exiting on the dorsum. The tendon was then passed through this docking si te and then sewed back onto itself at the base of the metacarpal, very nicely stabilizing th e metacarpal base. We then using nylon suture to hold the tendon up and sew an "anchovy" which was then placed into the space vacated by the trapezium. It was very stable in this space and did not need to be anchored. I then thoroughly irrigated the incision and closed the arthrotomy using an 0 Vicryl suture . A 3-0 Vicryl suture then closed the subcutaneous tissue and a running nylon closed the sk in. We also irrigated the 2 forearm incisions and closed them using running nylon suture. A sterile dressing was then applied and the tourniquet was deflated. We then placed a thumb spica splint. She was then awakened and extubated and transferred to the recovery room in stable condition having tolerated this procedure well. This note was dictated using voice recognition software. Please contact me if there are an y questions regarding its content. Postoperative plan: Splint for 2 weeks then convert to removable splint for 4 more weeks Electronically signed by: Jesus Brady DO 06/18/2018 At 15:39 P DTdocumented in this encounter Plan of Treatment +--------+---------+ [...] | | | | | | [place] [address] | | | | | | [phone] | | | | | | | | +--------+---------+ + + + | 03/01/ | Office | Pulmonology | Mukul Clark MD | | | 2020 | Visit | | [address] | | | | | | [place] | | | | | | [address] | | | | | | | | +--------+---------+ + + + documented as of this encounter Procedures + +--------+ + + + | Procedure Name | Priori | Date/Time | Associated Diagnosis | Comments | | | ty | | | | + +--------+ + + + | FL ÁNGEL STATKarine NO | Routin | 06/18/2018 | | Results for this | | CHARGE | e | 3:21 PM | | procedure are in the | | | | PDT | | results section. | + +--------+ + + + | XR WRIST RIGHT 1 VW | Routin | 06/18/2018 | | Results for this | | LIMITED | e | 3:20 PM | | procedure are in the | | | | PDT | | results section. | + +--------+ + + + | ARTHROPLASTY HAND | | 06/18/2018 | Primary localized | | | | | 2:29 PM | osteoarthrosis of | | | | | PDT | hand, unspecified | | | | | | laterality | | + +--------+ + + + | POC GLUCOSE | Routin | 06/18/2018 | | Results for this | | | e | 1:20 PM | | procedure are in the | | | | PDT | | results section. | + +--------+ + + + documented in this encounter Results MICKI Tijerina Statkarine No Charge (06/18/2018 3:21 PM PDT) + + | Specimen | + + | | + + + + + | Narrative | Performed At | + + + | This exam has been auto-finalized. It was entered for statistical | [facility] | | purposes only. | | + + + + +---------+ + + | Performing | Address | City/State/Zipcode | Phone Number | | Organization | | | | + +---------+ + + | [facility] | | | | + +---------+ + + XR Wrist Right 1 View Limited (06/18/2018 3:20 PM PDT) + + | Specimen | + + | | + + + + + | Narrative | Performed At | + + + | XR WRIST RIGHT 1 VW LIMITED 06/18/2018 2:50 PM HISTORY: intra op. | [facility] | | COMPARISON: None. FINDINGS: Intraoperative x-rays of wrist. | | | IMPRESSION - Intraoperative x-rays of wrist. Dictated and | | | Signed by: Kobe Lentz MD Electronically signed: 06/18/2018 4:31 | | | PM | | + + + + + | Procedure Note | + + | Reed, Rad Results In - 06/18/2018 4:34 PM PDT XR WRIST RIGHT 1 VW LIMITED 06/18/2018 | | 2:50 PMHISTORY: intra op.COMPARISON: None.FINDINGS:Intraoperative x-rays of | | wrist.IMPRESSION -Intraoperative x-rays of wrist.Dictated and Signed by: Kobe Lentz MD | | Electronically signed: 06/18/2018 4:31 PM | |COMPARISON: None. | | | |FINDINGS: | |Intraoperative x-rays of wrist. | | | |IMPRESSION - | |Intraoperative x-rays of wrist. | | | |Dictated and Signed by: Kobe Lentz MD | | Electronically signed: 06/18/2018 4:31 PM | + + + +---------+ + + | Performing | Address | City/State/Zipcode | Phone Number | | Organization | | | | + +---------+ + + | [facility] | | | | + +---------+ + + POC Glucose (06/18/2018 1:20 PM PDT) + +-------+ + + + | Component | Value | Ref Range | Performed | Pathologist | | | | | At | Signature | + +-------+ + + + | Glucose, | 91 | 70 - 109 mg/dL | [facility] | | | POC | | | [facility] | | [...] ST. | [address] | [place] | [phone] | | [facility] | | [id number] | | | - LABORATORY | | | | + + + + + documented in this encounter Visit Diagnoses + + | Diagnosis | + + | Primary localized osteoarthrosis of hand, unspecified laterality | + + documented in this encounter Administered Medications + +--------+ + +------+------+ | Medication Order | MAR | Action | Dose | Rate | Site | | | Action | Date | | | | + +--------+ + +------+------+ | acetaminophen (TYLENOL) tablet | Given | 06/19/19 | 1,000 mg | | | | 1,000 mg 1,000 mg, Oral, ONCE, | | 19 1:22 | | | | | Carey 06/18/18 at 1330, For 1 dose, | | PM PDT | | | | | Pre-op | | | | | | + +--------+ + +------+------+ + +---+ | | | + +---+ | albuterol 2.5 mg/3 mL nebulizer | | | solution 2.5 mg 2.5 mg, | | | Nebulization, ONCE PRN, Wheezing, | | | Starting Carey 06/18/18 at 1306, | | | For 1 dose, RT will administer., | | | Pre-op | | + +---+ | | | + +---+ | albuterol 2.5 mg/3 mL nebulizer | | | solution 2.5 mg 2.5 mg, | | | Nebulization, ONCE PRN, Wheezing, | | | Starting Carey 06/18/18 at 1542, | | | For 1 dose, Notify anesthesia if | | | patient is wheezing and does not | | | have a history of asthma or COPD | | | or current smoking., | | | Recovery/Phase I | | + +---+ | | | + +---+ + +-------+ +-------+---+---+ | albuterol-ipratropium 2.5-0.5 | Given | 06/19/19 | 3 mLs | | | | mg/3 mL nebulizer solution 3 mL | | 19 1:22 | | | | | 3 mL, Nebulization, ONCE PRN, | | PM PDT | | | | | Wheezing, Starting [facility] 06/18/18 at | | | | | | | 1306, For 1 dose, Pre-op | | | | | | + +-------+ +-------+---+---+ + +---+ | | | + +---+ | albuterol-ipratropium 2.5-0.5 | | | mg/3 mL nebulizer solution 3 mL | | | 3 mL, Nebulization, ONCE PRN, | | | Wheezing, Shortness of Breath, | | | Starting Carey 06/18/18 at 1542, For | | | 1 dose, Recovery/Phase I | | + +---+ | | | + +---+ + +-------+ +-------+---+ + | bupivacaine (MARCAINE) 0.5% | Given | 06/19/19 | 4 mLs | | Surgical | | injection PRN, Starting Carey | | 19 3:37 | | | Site | | 06/18/18 at 1537, Intra-op | | PM PDT | | | | + +-------+ +-------+---+ + + +---+ | | | + +---+ | dextrose 50% injection 12.5-25 | | | g 12.5-25 g, Intravenous, EVERY | | | 15 MIN PRN, Low Blood Sugar, Give | | | 12.5g (25 mL) IV if blood | | | glucose 50-69 mg/dL. Give 25g | | | (50 mL) IV if blood glucose < 50, | | | Starting Carey 06/18/18 at 1306, | | | Repeat in 15 min if blood glucose | | | remains < 70 mg/dL. Repeat | | | blood glucose in 30 min once | | | blood glucose > 70., Pre-op | | + +---+ | | | + +---+ | dextrose 50% injection 12.5-25 | | | g 12.5-25 g, Intravenous, EVERY | | | 15 MIN PRN, Low Blood Sugar, For | | | hypoglycemia. Give 12.5g (25ml) | | | IV if blood glucose 50-69 | | | mg/dL. Give 25g (50ml) IV if | | | blood glucose < 50, Starting Carey | | | 06/18/18 at 1542, Give over 2 min. | | | Repeat in 15 min if blood | | | glucose remains < 70 mg/dL. | | | Repeat blood glucose in 30 min | | | once blood glucose > 70., | | | Recovery/Phase I | | + +---+ | | | + +---+ | ePHEDrine 50 mg/mL injection 5 | | | mg 5 mg, Intravenous, EVERY 5 | | | MIN PRN, if SBP <90., Starting | | | Carey 06/18/18 at 1542, Hold if HR > | | | 100. Maximum total dose 20mg., | | | Recovery/Phase I | | + +---+ | | | + +---+ | fentaNYL (PF) injection 25-50 | | | mcg 25-50 mcg, Intravenous, | | | EVERY 5 MIN PRN, Pain, Starting | | | Carey 06/18/18 at 1542, Maximum | | | total dose 250 mcg. PACU IV | | | Narcotic Priority: Only use | | | fentanyl for immediate post-op | | | pain (one dose) or breakthrough | | | pain when any other IV narcotics | | | ordered have been ineffective (if | | | ordered). If both morphine and | | | hydromorphone are ordered, use | | | morphine first, and use | | | hydromorphone if morphine | | | ineffective., Recovery/Phase I | | + +---+ | | | + +---+ | hydrALAZINE (APRESOLINE) | | | injection 5 mg 5 mg, | | | Intravenous, EVERY 20 MINUTES | | | PRN, For SBP > 180, DBP > 100, | | | Starting Carey 06/18/18 at 1542, | | | Hold if HR > 100. Maximum total | | | dose 40 mg. Use labetalol first | | | if available., Recovery/Phase I | | + +---+ | | | + +---+ | HYDROmorphone (DILAUDID) | | | injection 0.2-0.5 mg 0.2-0.5 mg, | | | Intravenous, EVERY 5 MIN PRN, | | | Pain, Starting Carey 06/18/18 at | | | 1542, Maximum total dose 4 mg. | | | PACU IV Narcotic Priority: Only | | | use fentanyl for immediate | | | post-op pain (one dose) or | | | breakthrough pain when any other | | | IV narcotics ordered have been | | | ineffective (if ordered). If | | | both morphine and hydromorphone | | | are ordered, use morphine first, | | | and use hydromorphone if morphine | | | ineffective., Recovery/Phase I | | + +---+ | | | + +---+ | labetalol (TRANDATE) 5 mg/mL | | | injection 5 mg 5 mg, | | | Intravenous, EVERY 5 MIN PRN, For | | | SBP > 180, DBP > 100, Starting | | | Carey 06/18/18 at 1542, Hold if HR < | | | 60. Maximum total dose 300mg. | | | Notify anesthesia if patient | | | requires more than 50mg., | | | Recovery/Phase I | | + +---+ | | | + +---+ + +---------+ +---+-------+---+ | lactated ringers (LR) infusion | New Bag | 06/19/19 | | 100 | | | at 10-100 mL/hr, Intravenous, | | 19 1:30 | | mL/hr | | | CONTINUOUS, Starting Carey 06/18/18 | | PM PDT | | | | | at 1330, TKO., Pre-op | | | | | | + +---------+ +---+-------+---+ + +---+ | | | + +---+ | metoclopramide (REGLAN) 5 mg/mL | | | injection 10 mg 10 mg, | | | Intravenous, EVERY 6 HOURS PRN, | | | Nausea, Vomiting, Starting Carey | | | 06/18/18 at 1542, For 2 doses, | | | Protect from light., | | | Recovery/Phase I | | + +---+ | | | + +---+ | ondansetron (ZOFRAN) injection | | | 4 mg 4 mg, Intravenous, ONCE | | | PRN, Nausea, Starting Carey 06/18/18 | | | at 1542, For 1 dose, | | | Recovery/Phase I | | + +---+ | | | + +---+ | promethazine (PHENERGAN) (IV | | | ONLY) injection 6.25 mg 6.25 mg, | | | Intravenous, EVERY 15 MIN PRN, | | | Nausea, Vomiting, Starting Carey | | | 06/18/18 at 1542, For 4 doses, | | | TAKE PRECAUTIONS WHEN | | | ADMINISTERING Dilute to 10-20mL | | | with NS. Give over 2-3 minutes | | | into large vein. Use ondansetron | | | first if both are ordered., | | | Recovery/Phase I | | + +---+ | | | + +---+ documented in this encounter
--- OUTSIDE RECORDS SUMMARY | ~2019-09-27 | XMS | Encounter Summary ---
Demographics + + + | Address | [address] | | | [place] [address] | + + + | Home Phone [...] Team Providers + +------+ + | Care Furnace Converter Name | Role | Phone | + [...] Closed | | Radiology | Diagnoses | Vaishnav, | | | | | | Elevated | Niralee, MD | | | | | | prolactin | [address] | | | | | | level | [place] | | | | | | Procedures | [place], [place] | | | | | | MRI Brain w | [address] | | | | | | wo Contrast | Phone: | | | | | | | [phone] | | | | | | | Fax: | | | | | | | [phone] | | +--------+--------+ + + + + Reason for Visit Diagnostic/Screening (Routine) +--------+--------+ + + + + | Status | Reason | Specialty | Diagnoses / | Referred By | Referred To | | | | | Procedures | Contact | Contact | +--------+--------+ + + + + | Closed | | Radiology | Diagnoses | Vaishnav, | | | | | | Elevated | Niralee, MD | | | | | | prolactin | [address] | | | | | | level | [place] | | | | | | Procedures | [place], [place] | | | | | | MRI Brain w | [address] | | | | | | wo Contrast | Phone: | | | | | | | [phone] | | | | | | | Fax: | | | | | | | [phone] | | +--------+--------+ + + + + Encounter Details +--------+ + + + + | Date | Type | Department | Care Team | Description | +--------+ + + + + | 08/09/ | Hospital | [facility] | Daya Decker, | Aleksandr prolactin | | 2016 | Encounter | MED [facility] MRI [address] | MD [address] | level | | | | [place], | [place] | | | | | [place] [address] | [address] | | | | | [phone] | [phone] | | | | | | | [...] | | | | | order to [facility]. | | | | | + [...] | | | | send order to [facility] | | | | | | | [facility]. | | | | [...] | | | | | | ([facility]) | | | | | | + + + +---------+ + + | alendronate | Take 70 mg by mouth | | 0 | | | | (FOSAMAX) 70 mg | every 7 days. | | | | 6 | | tablet | | | | | | + + + +---------+ + + | cephalexin | Take 1 capsule by | 28 | 0 | 08/04/19 | | | (KEFLEX) 250 mg | mouth 4 times daily | capsule | | 16 | 6 | | capsule | for 7 days. | | | | | + + + +---------+ + + | cetirizine | Take 10 mg by mouth | | 0 | 05/31/19 | | | (ZYRTEC) 10 mg | Daily. | | | 16 | 7 | | tablet | | | | | | + + + +---------+ + + | ergocalciferol | | | 0 | 05/31/19 | | | (VITAMIN D-2) 50,000 | | | | 16 | 6 | | units capsule | | | | | | [...] | | | | | | ([facility]) | | | | | | [...] +---------+ + + | ondansetron | Take 1 tablet by | 15 | 0 | 04/12/19 | | | (ZOFRAN ODT) 4 mg | mouth every 6 hours | tablet | | 16 | 6 | | disintegrating | as needed for | | | | | | tablet | Nausea. | | | | | + + + +---------+ + + | | Take 1 tablet by | 15 | 0 | 04/12/19 | | | oxyCODONE-acetaminop | mouth every 6 hours | tablet | | 16 | 6 | | hen (PERCOCET) 5-325 | as [...] [place] | | | | | | [id number] | | | | | | | | +--------+---------+ + + + | 11/24/ | Office | Cardiology | [place], | | | 2019 | Visit | | [address] | | | | | | [place] | | | | | | [place] [address] | | | | | | [phone] | | | | | | | | +--------+---------+ + + + | 03/01/ | Office | Pulmonology | Mukul Clark MD | | | 2020 | Visit | | [address] | | | | | | [place] | | | | | | [address] | | | | | | | | +--------+---------+ + + + documented as of this encounter Procedures + +--------+ + + + | Procedure Name | Priori | Date/Time | Associated Diagnosis | Comments | | | ty | | | | + +--------+ + + + | POC BLOOD GASES | Routin | 08/10/2015 | | Results for this | | | e | 9:47 AM | | procedure are in the | | | | PDT | | results section. | + +--------+ + + + | MRI BRAIN W WO | Routin | 08/10/2015 | Elevated prolactin | Results for this | | CONTRAST | e | 9:33 AM | level | procedure are in the | | | | PDT | | results section. | + +--------+ + + + documented in this encounter Results POC Blood Gases (08/10/2015 9:47 AM PDT) + +-------+ + + + | Component | Value | Ref Range | Performed | Pathologist | | | | | At | Signature | + +-------+ + + + | Specimen | Vein | | [facility] | | | Source | | | [facility] | | | | | | [facility] | | | | | [facility] - | | | | | | LABORATORY | | + +-------+ + + + | Creatinine, | 0.8 | 0.5 - 1.2 mg/dL | [facility] | | | POC | | | [facility] | | | | | | MEDICAL | | | | | | CENTER - | | | | | | LABORATORY | | + +-------+ + + + | eGFR, | >60 | >=60 | [facility] | | | non- | | mL/min/1.73m2 | [facility] | | | [facility] | | | MEDICAL | | | [...] | [address] | [place] | [phone] | | [facility] | | [address] | | | - LABORATORY | | | | + + + + + MRI Brain w wo Contrast (08/10/2015 9:33 AM PDT) + + | Specimen | + + | | + + + + + | Narrative | Performed At | + + + | MRI BRAIN W WO CONTRAST 08/10/2015 9:08 AM HISTORY: ELEVATED | [facility] | | PROLACTIN LEVEL COMPARISON: MRI 06/02/2014 TECHNIQUE: | | | Multiplanar, multisequence images of the brain were obtained both | | | with and without IV contrast. Thin slices obtained through the | | | pituitary , with dynamic imaging in coronal planes. Postcontrast | | | images were obtained following administration of 10 cc Gadavist. | | | FINDINGS: The previously described tiny 1 mm hypoenhancing focus in | | | the right side of the pituitary gland seen on the prior study from | | | 06/02/2014 is unchanged on the current study. Pituitary is within | | | normal limits in size. The pituitary stalk is well-visualized and | | | is within normal limits in appearance and the midline. The brain | | | shows normal morphology and signal characteristics. No abnormal T2 | | | hyperintensity, contrast enhancement, susceptibility change, or | | | diffusion restriction are present. There is no evidence of mass | | | effect or midline shift. No extra-axial fluid collection is present. | | | The ventricles and basal cisterns are normal in size. The major | | | intracranial vessels are unremarkable. No abnormality is seen in the | | | region of the internal acoustic canals or cerebellopontine angles. | | | The midline structures are intact. The pituitary appears normal. The | | | cerebellar tonsils are even with the foramen magnum. The orbital | | | contents are within normal limits. The aerated spaces are | | | unremarkable. The extracranial soft tissues are within normal limits. | | | IMPRESSION - Stable, tiny, 1 mm focus of hypoenhancement seen on | | | the right margin of the pituitary, with small size limiting | | | characterization. Finding is of uncertain clinical significance, | | | and unchanged from prior studies dating back multiple years. | | | Otherwise normal MRI appearance of the brain. Dictated and Signed | | | by: Sterling Lee MD Electronically signed: 08/10/2015 10:42 AM | | | | | + + + + + | Procedure Note | + + | Reed, Rad Results In - 08/10/2015 10:46 AM PDT MRI BRAIN W WO CONTRAST 08/10/2015 9:08 | | AMHISTORY: ELEVATED PROLACTIN LEVELCOMPARISON: MRI 06/02/2014 TECHNIQUE: Multiplanar, | | multisequence images of the brain were obtained bothwith and without IV contrast. Thin | | slices obtained through the pituitary , withdynamic imaging in coronal planes. | | Postcontrast images were obtained followingadministration of 10 cc Gadavist.FINDINGS:The | | previously described tiny 1 mm hypoenhancing focus in the right side of thepituitary | | gland seen on the prior study from 06/02/2014 is unchanged on thecurrent study. Pituitary | | is within normal limits in size. The pituitary stalkis well-visualized and is within | | normal limits in appearance and the midline.The brain shows normal morphology and signal | | characteristics. No abnormal [id number], contrast enhancement, susceptibility | | change, or diffusionrestriction are present.There is no evidence of mass effect or | | midline shift.No extra-axial fluid collection is present.The ventricles and basal | | cisterns are normal in size.The major intracranial vessels are unremarkable.No | | abnormality is seen in the region of the internal acoustic canals orcerebellopontine | | angles.The midline structures are intact. The pituitary appears normal.The cerebellar | | tonsils are even with the foramen magnum.The orbital contents are within normal | | limits.The aerated spaces are unremarkable.The extracranial soft tissues are within | | normal limits.IMPRESSION -Stable, tiny, 1 mm focus of hypoenhancement seen on the right | | margin of thepituitary, with small size limiting characterization. Finding is of | | uncertainclinical significance, and unchanged from prior studies dating back | | multipleyears.Otherwise normal MRI appearance of the brain.Dictated and Signed by: Sterling | | MD Jesus Electronically signed: 08/10/2015 10:42 AM | |The major intracranial vessels are unremarkable. | |No abnormality is seen in the region of the internal acoustic canals or | |cerebellopontine angles. | |The midline structures are intact. The pituitary appears normal. | |The cerebellar tonsils are even with the foramen magnum. | |The orbital contents are within normal limits. | |The aerated spaces are unremarkable. | |The extracranial soft tissues are within normal limits. | | | |IMPRESSION - | |Stable, tiny, 1 mm focus of hypoenhancement seen on the right margin of the | |pituitary, with small size limiting characterization. Finding is of uncertain | |clinical significance, and unchanged from prior studies dating back multiple | |years. | | | |Otherwise normal MRI appearance of the brain. | | | |Dictated and Signed by: Sterling Lee MD | | Electronically signed: 08/10/2015 10:42 AM | + + + +---------+ + + | Performing | Address | City/State/Zipcode | Phone Number | | Organization | | | | + +---------+ + + | [facility] | | | | + +---------+ + + documented in this encounter Visit Diagnoses + + | Diagnosis | + + | Elevated prolactin level Other and unspecified anterior pituitary hyperfunction | + + documented in this encounter Administered Medications + +--------+ +--------+------+------+ | Medication Order | MAR | Action | Dose | Rate | Site | | | Action | Date | | | | + +--------+ +--------+------+------+ | gadobutrol (GADAVIST) injection | Given | 08/10/19 | 10 mLs | | | | 10 mL 10 mL, Intravenous, ONCE | | 16 9:49 | | | | | PRN, Other, Starting Carey 08/10/15 | | AM PDT | | | | | at 0949, For 1 dose, MRI | | | | | | + +--------+ +--------+------+------+ +---+---+ | | | +---+---+ documented in this encounter"
--- OUTSIDE RECORDS SUMMARY | ~2019-09-27 | XMS | Encounter Summary ---
Demographics + + + | Address | [address] | | | [place] [address] | + + + | Home Phone [...] Team Providers + +------+ + | Care Play Writer Name | Role | Phone | + +------+ + | Juan Cherry DO | PCP | | + +------+ + Reason for Visit +--------+--------+ + | Reason | Onset | Comments | | | Date | | +--------+--------+ + | Other | 09/17/ | increased shortness of breath | | | 2013 | | +--------+--------+ + Encounter Details +--------+ + + + + | Date | Type | Department | Care Team | Description | +--------+ + + + + | 09/17/ | Telephone | [facility] | Kevin Sandoval, | Other (increased | | 2013 | | PULMONARY [address] | MD [address] | shortness of breath) | | | | [place], | [place] | | | | | [place] [address] | [id number] | | | | | [phone] | | | +--------+ + + + [...] Telephone Encounter - Marilyn Osborne RN - 09/17/2013 3:27 PM PDTCalled Rosario and ad vised that Dr Sandoval is ordering a taper of Prednisone. Prednisone 40 mg daily for 3 days, 30 mg daily for 3 days, 20 mg daily for 3 days and 10 mg daily for 3 days called to [facility] Follow up scheduled for 10/01/13.Electronically signed by Marilyn Osborne RN at 09/17 3:35 PM PDTTelephone Encounter - Kevin Sandoval MD - 09/17/2013 3:20 PM PDTShahrzad russell prescribed the patient my standard prednisone taper. I would suggest a followup appointme nt in 2 weeks' time. Telephone Encounter - Marilyn Osborne RN - 09/17/2013 2:47 PM PDTGretchen called stating that for the past 2 days she's been more short of breath and very dyspneic walking from her bedroom to the living room. No change in cough from baseline, no sputum. She has not had a recent cold, acute illness or fever. Rosario continues to use Advair, Daliresp and Spiriva regularly. She has been using the nebulized albuterol 1-2 times a day and the ProAir 2-3 sharmila es a day. Rosario uses [facility]. 14 2:51 PM PDTdocumented in this encounter Plan of Treatment +--------+---------+ [...] | | | | | | [place] [address] | | | | | | [phone] | | | | | | | | +--------+---------+ + + + | 03/01/ | Office | Pulmonology | Mukul Clark MD | | | 2020 | Visit | | [address] | | | | | | [place] | | | | | | [id number] | | | | | | | | +--------+---------+ + + + documented as of this encounter Visit Diagnoses Not on filedocumented in this encounter"
--- OUTSIDE RECORDS SUMMARY | ~2019-09-27 | XMS | Encounter Summary ---
Demographics + + + | Address | [address] | | | [place] [address] | + + + | Home Phone [...] Team Providers + +------+ + | Care Radiology Manager Name | Role | Phone | + +------+ + | Juan Cherry DO | PCP | | + +------+ + Reason for Visit +--------+--------+ + | Reason | Onset | Comments | | | Date | | +--------+--------+ + | Other | 01/24/ | prescription clarification | | | 2013 | | +--------+--------+ + Encounter Details +--------+ + + + + | Date | Type | Department | Care Team | Description | +--------+ + + + + | 01/24/ | Telephone | [facility] | Jared Mcdonough, | Other (prescription | | 2013 | | CARDIOLOGY [address] | MD [address] | clarification) | | | | [place], | [place], | | | | | [place] [address] | [place] [address] | | | | | [phone] | [phone] | | | | | | | [...] this encounter Miscellaneous Notes Telephone Encounter - Darren Polo RN - 01/24/2014 2:04 PM PSTReceived [facility] "Please verify medication - Patient is unclear about why she is taking Colcry s 0.6mg BID. After reviewing Dr. Sanchez's last office visit Plan (01/11/2014) which states: "I offer ibuprofen which he refuses to take. Therefore, I will go with claudication 0.6 mg twice a day." After consulting with my Preceptor nurse, we agreed that "claudication" is a Dragon Dictate error and that the drug referred to is (cholchicine) Colcrys 0.6mg BID. [facility] contacted and informed that this drug is to treat pericarditis. documented in this e ncounter Plan of Treatment +--------+---------+ + + + [...] [place], | | | | | | [place] [address] | | | | | | [phone] | | | | | | | | +--------+---------+ + + + | 03/01/ | Office | Pulmonology | Mukul Clark MD | | | 2020 | Visit | | [address] | | | | | | [place] | | | | | | [phone] | | | | | | | | +--------+---------+ + + + documented as of this encounter Visit Diagnoses Not on filedocumented in this encounter
--- OUTSIDE RECORDS SUMMARY | ~2019-09-27 | XMS | Encounter Summary ---
Demographics + + + | Address | [address] | | | [place] [address] | + + + | Home Phone | | + + + | Preferred Language | Unknown | + + + | Marital Status | Single | + + + | Yazidi Affiliation | 1041 | + + + | Race | Unknown | + + + | Ethnic Group | Unknown | + + + Author + + + | Author | [facility] | | | and [place] | + + + | Organization | [facility] | | | [...] Team Providers + +------+ + | Care Kiss Mixer Name | Role | Phone | + +------+ + | Juan Cherry DO | PCP | | + +------+ + Encounter Details +--------+ + + + + | Date | Type | Department | Care Team | Description | +--------+ + + + + | 09/09/ | Hospital | [facility] | Conversion | Pain | | 2015 | Encounter | CONVERSION [address] | Transaction, | | | | | [address] | Provider Unknown | | | | | [place], [place] | [phone] | | | | | [address] | | | | | | [phone] | | | +--------+ + + + [...] | | | | | order to [facility]. | | | | | [...] | | | | send order to [facility] | | | | | | | [facility]. | | | | | [...] | | | | | | | ([facility]) | | | | | | + [...] | | | | | | | ([facility]) | | | | | | + [...] [place] | | | | | | [address] | | | | | | | | +--------+---------+ + + + | 11/24/ | Office | Cardiology | [place], | | | 2019 | Visit | | SINDHU Erickson [address] | | | | | | [place] | | | | | | [place] [address] | | | | | | [phone] | | | | | | | | +--------+---------+ + + + | 03/01/ | Office | Pulmonology | Mukul Clark MD | | | 2020 | Visit | | [address] | | | | | | [place] | | | | | | [address] | | | | | | | [...]
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
--- OUTSIDE RECORDS SUMMARY | ~2019-09-27 | XMS | Encounter Summary ---
Demographics + + + | Address | [address] | | | [place] [address] | + + + | Home Phone [...] Team Providers + +------+ + | Care Wastewater Superintendent Name | Role | Phone | + +------+ + | Juan Cherry DO | PCP | | + +------+ + Reason for Visit + +--------+ + | Reason | Onset | Comments | | | Date | | + +--------+ + | Appointment | 12/08/ | | | | 2014 | | + +--------+ + Encounter Details +--------+ + + + + | Date | Type | Department | Care Team | Description | +--------+ + + + + | 12/08/ | Telephone | [facility] | Jared Mcdonough, | Appointment | | 2014 | | CARDIOLOGY [address] | MD [address] [place] | | | | | [place], | [place], | | | | | [place] [address] | [place] [address] | | | | | [phone] | [phone] | | | | | | | [...] this encounter Miscellaneous Notes Telephone Encounter - Cydney Burnett - 12/08/2014 1:50 PM PDTPatient called and reschedu led to 01-12-15. elephone Encounter - Radha Olvera - 12/08/2014 12:22 PM PDTPatient was a no show to her appointmen t with Dr. Sanchez on 11-29-14. Called patient to reschedule. Left voicemail message for patient to call back documented in this encounter Plan of Treatment +--------+---------+ + + + | Date | Type | Specialty | Care Team | Description | +--------+---------+ + + + | 09/27/ | Office | Sleep Medicine | Meghan Garcia MD | | | 2019 | Visit | | [address] | | | | | | [place] | | | | | | [id number] | | | | | | | | +--------+---------+ + + + | 11/24/ | Office | Cardiology | [place], | | | 2019 | Visit | | SINDHU Erickson [address] | | | | | | [place] | | | | | | [place] [address] | | | | | | [phone] | | | | | | | [...]
--- OUTSIDE RECORDS SUMMARY | ~2019-09-27 | XMS | Encounter Summary ---
Demographics + + + | Address | [address] | | | [place] [address] | + + + | Home Phone [...] Team Providers + +------+ + | Care Mold Carpenter Name | Role | Phone | + +------+ + | Juan Cherry DO | PCP | | + +------+ + Encounter Details +--------+ + + + + | Date | Type | Department | Care Team | Description | +--------+ + + + + | 11/08/ | Hospital | [facility] | Conversion | Asthma, moderate | | 2014 | Encounter | PULMONARY FUNCTION | Transaction, | persistent, | | | | LAB [address] | Provider Unknown | uncomplicated | | | | [place], [place] | [phone] | | | | | [address] | | | | | | [phone] | | | +--------+ + + + [...] | | | | | order to [facility]. | | | | | + [...] | | | | send order to [facility] | | | | | | | [facility]. | | | | | | | [...] | | | | | | | ([facility]) | | | | | [...] | | | | | | | ([facility]) | | | | | | + + + +---------+ + + | | Take 1 tablet by | 25 | 0 | 11/05/19 | | | HYDROcodone-acetamin | mouth every 4 hours | tablet | | 15 | 5 | | ophen (NORCO) 5-325 | as needed for Pain. | | | | | | mg per | | | | | | | tabletIndications: | | | | | | | Axillary abscess | | | | | | + [...] | | Take 1 tablet by | 20 | 0 | 11/05/19 | | | sulfamethoxazole-tri | mouth 2 times daily | tablet | | 15 | 5 | | methoprim (BACTRIM | for 10 days. | | | | | | DS) 800-160 mg per | | | | | | | tabletIndications: | | | | | | | Axillary abscess | | | | | | + [...] documented as of this encounter Procedure Notes Mukul Clark MD - 11/09/2014 4:34 PM PDT Procedures by Mukul Clark MD at 11/09/14 553 Author: Mukul Clark MD Service: Law Librarian Author Type: Physician Filed: 11/09/14 6990 Date of Service: 11/09/141633 Status: Signed Seamer: Mukul Clark MD (Physician) Procedure Orders: 1. Complete PFT - Pre & Post Spirometry, PLETH & DLCO [[id number]] ordered by Mukul Clark MD at 10/04/14 1326 [facility] Service: Pulmonology PULMONARY FUNCTION TEST Name : Rosario Malik : 1965 FINDINGS SPIROMETRY: 1. FEV-1/FVC is 39 which is [...] trapping. The diffusing capacity is moderately reduced . Mukul Clark MD 11/09/2014 4:34 PM documented in this enc ounter Plan of Treatment +--------+---------+ + + + | Date | Type | Specialty | Care Team | Description | +--------+---------+ + + + | 09/27/ | Office | Sleep Medicine | Meghan Garcia MD | | | 2019 | Visit | | [address] | | | | | | [place] | | | | | | [id number] | | | | | | | | +--------+---------+ + + + | 11/24/ | Office | Cardiology | [place] | | | 2019 | Visit | | SINDHU Erickson [address] | | | | | | [place], | | | | | | [place] [address] | | | | | | [phone] | | | | | | | | +--------+---------+ + + + | 03/01/ | Office | Pulmonology | Mukul Clark MD | | | 2020 | Visit | | [address] | | | | | | [place] | | | | | | [address] | | | | | | | | +--------+---------+ + + + documented as of this encounter Visit Diagnoses + + | Diagnosis | + + | Asthma, moderate persistent, uncomplicated | + + documented in this encounter"
--- OUTSIDE RECORDS SUMMARY | ~2019-09-27 | XMS | Encounter Summary ---
Demographics + + + | Address | [address] | | | [place] [address] | + + + | Home Phone [...] Team Providers + +------+ + | Care Transit Survey Worker Name | Role | Phone | + +------+ + | Juan Cherry DO | PCP | | + +------+ + Reason for Visit + + + | Reason | Comments | + + + | Therapy Daily | | | Treatment | | + + + Encounter Details +--------+---------+ + + + | Date | Type | Department | Care Team | Description | +--------+---------+ + + + | 05/19/ | Office | [facility] | Brian Miranda | Sprain of chest wall | | 2013 | Visit | MED CTR THERAPY PT | MD Ozzy Need | (Primary Dx) | | | | OP [address] | updated address | | | | | [place] | [place], | | | | | [address] | [place] [address] | | | | | [phone] | [place] | | | | | | [address] | | | | | | [phone] | | | | | | | [...] of this encounter Progress Notes Janey Low, [place] - 05/19/2013 1:38 PM PDTFormatting of this note might be different f rom the original. [facility] CTR THERAPY PT OP [address] [place] [address] Physical Therapy Daily Treatment Note Date: 05/19/2013 Patient Information Patient Name: Rosario Malik Date of : 1965 Age: 48 y.o. Encounter Diagnoses Code Name Primary? 848.8 Sprain of chest wall Yes Date of Onset: 04/05/13 Referring Provider: Brian Miranda MD Pain Assessment Pain Rating Pre Assessment: 3 Pain Rating During Assessment: 0 Location: across the left chest 2-3/10 at rest its a constant dull ache. When breathing in it can be a sharp pain up to 4/10. At its worst 8/10 when breathing in. When its the higher end the pain level it goes across to the right side. Objective Today's Treatment Patient Name: Rosario Malik/: 1965/ Start Time: 45 Stop time: 929 Duration: 45 minutes Timed Treatment Codes: 45 minutes # of PT Visits to Date: 2 Visit Summary: S: Pt wants to get back to working full duty. 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 To see Dr Miranda next week. 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 One pt she helps her with the legs getting into bed. Does have to push WC. Verbalized maria t she has in the past keep WC as close to her as possible when pushing. After Kinesio tape was applied to chestwall pt no longer had pain with normal breathing. Deep breathing 05/03. W ould of been up to 10/03 without the tape. A: Pt motivated to improve and return to work. Bladimir y receptive to information given to her today. Next Visit Information: cont to improve functional mobility and tolerance to ADLs. Patient/Caregiver Education Learner: Patient Readiness: Eager Method: Explanation;Demonstration;Handout Response: Verbalizes Understanding;Demonstrated Understanding Comment: Emphasis today in body mechanics, lifting and posture training. Handouts were give n. Posture with emphasis in scapular retraction and preventing forward head. Ed on changing of positions every 30 minutes to prevent exacerbation of symptoms. Education in pacing self during functional activity to prevent exacerbations. Stressed the importance of alignment an d abdominal bracing with functional activity. Ergonomics related to computer use. Assessment Rehabilitation potential: Patient demonstrates excellent potential to achieve established g oals to address the documented impairments by participating in skilled physical therapy serv ices. Electronically signed by: Janey Low PTA, 05/19/2013 13:38 Patient Name: Rosario Malik/: 1965/ signed by Janey Low PTA at 05/19/2013 1:40 PM PDTdocumented in this encounter Plan of [...] [place] | | | | | | [address] | | | | | | | | +--------+---------+ + + + | 11/24/ | Office | Cardiology | [place], | | | 2019 | Visit | | SINDHU Erickson [address] | | | | | | [place], | | | | | | [place] [address] | | | | | | [phone] | | | | | | | | +--------+---------+ + + + | 03/01/ | Office | Pulmonology | Mukul Clark MD | | | 2020 | Visit | | [address] | | | | | | [place] | | | | | | [address] | | | | | | | | +--------+---------+ + + + documented as of this encounter Visit Diagnoses + + | Diagnosis | + + | Sprain of chest wall - Primary Other specified sites of sprains and strains | + + documented in this encounter
--- OUTSIDE RECORDS SUMMARY | ~2019-09-27 | XMS | Encounter Summary ---
Demographics + + + | Address | [address] | | | [place] [address] | + + + | Home Phone [...] + | Author | [facility] | | | and [place] | + + + | Organization | [facility] | | | and [...] Providers + +------+ + | Care Manager Desktop Name | Role | Phone | + +------+ + | Juan Cherry DO | PCP | | + +------+ + Encounter Details +--------+ + + + + | Date | Type | Department | Care Team | Description | +--------+ + + + + | 06/16/ | Imaging | [facility] | Provider, | | | 2019 | Exam | MED CTR EXTERNAL | MD [address] | | | | | IMAGING [address] | [address] | | | | | [address] [facility] | [place] [address] | | | | | [place] [address] | | | | | | [phone] | | | +--------+ + + + [...] | 2019 | Visit | | SINDHU Ericksno [address] | | | | | | [place] | | | | | | [place] [address] | | | | | | [phone] | | | | | | | | +--------+---------+ + + + | 03/01/ | Office | Pulmonology | Mukul Clark MD | | | 2020 | Visit | | [address] | | | | | | [place] | | | | | | [phone] | | | | | | | | +--------+---------+ + + + documented as of this encounter Procedures + +--------+ + + + | Procedure Name | Priori | Date/Time | Associated Diagnosis | Comments | | | ty | | | | + +--------+ + + + | XR WRIST RIGHT 3 + | Routin | 05/27/2018 | | Results for this | | VW | e | 10:55 AM | | procedure are in the | | | | PDT | | results section. | + +--------+ + + + documented in this encounter Results XR Wrist Right 3 + Vw (05/27/2018 10:55 AM PDT) + + | Specimen | + + | | + + + + + | Narrative | Performed At | + + + | External films for comparison only | [facility] | | | | | No results will be in the chart. | | + + + + +---------+ + + | Performing | Address | City/State/Zipcode | Phone Number | | Organization | | | | + +---------+ + + | [facility] | | | | + +---------+ + + documented in this encounter Visit Diagnoses Not on filedocumented in this encounter"
--- OUTSIDE RECORDS SUMMARY | ~2019-09-27 | XMS | Encounter Summary ---
Demographics + + + | Address | [address] | | | [place] [address] | + + + | Home Phone | | + + + | Preferred Language | Unknown | + + + | Marital Status | Single | + + + | Methodist Affiliation | 1041 | + + + | Race | Unknown | + + + | Ethnic Group | Unknown | + + + Author + + + | Author | [facility] | | | and [place] | + + + | Organization | [facility] | | [...] Team Providers + +------+ + | Care Internet Marketing Consultant Name | Role | Phone | + +------+ + PCP | Unavailable | + +------+ + Encounter Details +--------+ + + + + | Date | Type | Department | Care Team | Description | +--------+ + + + + | 01/12/ | [facility] | [facility] | | | | 2008 | Encounter | MED CTR LABORATORY | | | | | | [address] | | | | | | [place] | | | | | | [address] | | | | | | [phone] | | | +--------+ + + + [...] | | | | | | [place] [address] | | | | | | [phone] | | | | | | | | +--------+---------+ + + + | 03/01/ | Office | Pulmonology | Mukul Clark MD | | | 2020 | Visit | | [address] | | | | | | [place] | | | | | | [address] | | | | | | | | +--------+---------+ + + + documented as of this encounter Visit Diagnoses Not on filedocumented in this encounter"
--- OUTSIDE RECORDS SUMMARY | ~2019-09-27 | XMS | Encounter Summary ---
Demographics + + + | Address | [address] | | | [place] [address] | + + + | Home Phone | | + + + | Preferred Language | Unknown | + + + | Marital Status | Single | + + + | Anabaptist Affiliation | 1041 | + + + | Race | Unknown | + + + | Ethnic Group | Unknown | + + + Author + + + | Author | [facility] | | | and [place] | + + + | Organization | [facility] | | | [...] Team Providers + +------+ + | Care Inside Sales Professional Name | Role | Phone | + +------+ + | Juan Cherry DO | PCP | | + +------+ + Encounter Details +--------+ + + + + | Date | Type | Department | Care Team | Description | +--------+ + + + + | 01/20/ | Hospital | [facility] | Guru Cárdenas, | | | 2011 | Encounter | MED CTR EMERGENCY | [address] | | | | | CENTER [address] | [facility] [place] | | | | | [place], [place] | [place] [address] | | | | | [address] | [phone] | | | | | [phone] | | | | | | | Ozzy Aponte | | | | | | MD Delio [address] | | | | | | [address] [place] | | | | | | [place] [address] | | | | | | [phone] | | | | | | | [...] documented as of this encounter ED Notes Ozzy Aponte MD - 01/21/2012 8:08 [place] [address] Patient Name: JADYN SCHMITZ Provider: Unit #: [id number] Location: [facility] : 1965 DATE: 01/21/2012 HISTORY OF PRESENT ILLNESS: This is a 47-year-old female who presents to the emergency bang with pain in her right foot. She states that she fell and twisted her foot yesterday. She is having some foot and ankle pain mainly when she is walking after this fall. She stated that she took her normal tramadol as well as her normal ibuprofen. It is not helping very m uch with the pain. She continues to have foot and ankle pain with ambulation, although she is able to walk. The patient denies any loss of consciousness with the fall, no other injur ies with the fall. REVIEW OF SYSTEMS: Complete review of systems was completed. All components are negative e xcept the above. PAST MEDICAL HISTORY: Emphysema, fibromyalgia, hysterectomy and hernia repair. Also a hist ory of asthma. SOCIAL HISTORY: She smokes approximately 1 to 2 packs of cigarettes per day. Denies substa nce abuse. Denies alcohol use. MEDICATIONS: Include 1. Geodon. 2. Tramadol. 3. Synthroid. 4. Neurontin. 5. Advair, 6. Cymbalta. 7. Albuterol. 8. Tylenol. ALLERGIES 1. ERYTHROMYCIN. 2. NSAIDs. 3. MEPERIDINE. PHYSICAL EXAMINATION VITAL SIGNS: Blood pressure is 99/55, heart rate of 86, respirations 16, O2 saturation 94% , temperature is 96.7. GENERAL: The patient is awake and alert, in moderate distress. EXTREMITIES: Focused examination of the right lower extremity shows normal knee. Normal ra nge of motion of the hip. No pain or tenderness with movement of these joints. Her right an kle is stable at this point. She does have decreased range of motion of the right ankle. Th ere is no tenderness on the medial malleolus or lateral malleolus or posterior component of the ankle. Tenderness is noted on the anterior portion of the foot across the tarsals the metatarsals. She has no fifth metatarsal tenderness at this time. Good coloration and sensa tion to the distal portions of the foot are noted. FURTHER STUDIES: The patient had an x-ray of the right foot. X-ray did not demonstrate an acute fracture. There is a small amount soft tissue swelling that is noted on x-ray. The patient is placed in an Rafy wrap for stabilization and compression. The patient is to follow up with primary care physician for followup of continued pain. She is also encourage d to continue her current pain medication. CLINICAL IMPRESSION RIGHT FOOT SPRAIN. DICTATED BY: Ozzy Aponte MD Emergency Medicine JOB #: [id number] EXT JOB #:[id number] <<Signature on File>> Ozzy Aponte MD01/21/12 1042 < documented in this encounter Plan of Treatment [...] [place] | | | | | | [address] | | | | | | | | +--------+---------+ + + + | 11/24/ | Office | Cardiology | [place], | | | 2019 | Visit | | SINDHU Erickson [address] | | | | | | [place] | | | | | | [place] [address] | | | | | | [phone] | | | | | | | | +--------+---------+ + + + | 03/01/ | Office | Pulmonology | Mukul Clark MD | | | 2020 | Visit | | [address] | | | | | | [place] | | | | | | [address] | | | | | | | [...] Performed At | + + + | [facility] | [place] | | Department [address] [facility] [place] | [facility] | | [ rep [address]] [ rep [facility] | | st zip] Signed | - IMAGING | | | | | Patient Name: JADYN SCHMITZ | | | Physician: MARY : 1965 Age: 47 Sex: F Unit | | | #: [id number] Exam Date: 01/21/12 Location: | | | [facility] Report #: [id number] Page: | | | %(RAD)RES..mtdd.print.filter("pg") of %(RAD) | | | RES..mtdd.print.filter("tpg") | | | | | | Accession Number: [id number] | | | RIGHT FOOT CLINICAL HISTORY: [...] Transcribed Date/Time: 01/21/2012 09:32 | | | Feedmobile Driver: <<Signature on File>> | | | | | | Cesar Ren MD01/21/12 1402 <Electronically signed by | | | Cesar Ren MD> Cesar Ren MD 01/21/12 | | | 0964 Feedmobile Driver: Neal [email or web address]/27/12 0932 | | | | | + + + + + + + + | Performing | Address | City/State/[facility] | Phone Number | | Organization | | | | + + + + + | [address] | [address] | [place] | [phone] | | [facility] | | [address] | | | - IMAGING | | | | + + + + + documented in this encounter Visit Diagnoses Not on filedocumented in this encounter
--- OUTSIDE RECORDS SUMMARY | ~2019-09-27 | XMS | Encounter Summary ---
Demographics + + + | Address | [address] | | | [place] [address] | + + + | Home Phone | | + + + | Preferred Language | Unknown | + + + | Marital Status | Single | + + + | Synagogue Affiliation | 1041 | + + + | Race | Unknown | + + + | Ethnic Group | Unknown | + + + Author + + + | Author | [facility] | | | and [place] | + + + | Organization | [facility] | | | and [place] | + [...] Providers + +------+ + | Care Electric Engine Mechanic Name | Role | Phone | + +------+ + | Juan Cherry DO | PCP | | + +------+ + Reason for Visit + +--------+ + | Reason | Onset | Comments | | | Date | | + +--------+ + | Referral | 10/05/ | | | | 2013 | | + +--------+ + Encounter Details +--------+ + + + + | Date | Type | Department | Care Team | Description | +--------+ + + + + | 10/05/ | Telephone | [facility] | Jared Mcdonough, | Referral | | 2013 | | CARDIOLOGY [address] | MD [address] [place] | | | | | [place], | [place], | | | | | [place] [address] | [place] [address] | | | | | [phone] | [phone] | | | | | | | [...] Notes Telephone Encounter - Cydney Burnett - 10/05/2013 3:[address] PHILLIP Reynolds FAX NUMBER [phone]: REFERRAL DEMOGRAPHICS CHART NOTES 10-05-13, 08-12-13 HOLTER MONITOR 08-12-13 LABS [id number] signed by Cydney Burnett at 10/05/2013 3:37 PM PDTdocumented maxi reynoso this encounter Plan of Treatment +--------+---------+ + + + | Date | Type | Specialty | Care Team | Description | +--------+---------+ + + + | 09/27/ | Office | Sleep Medicine | Meghan Garcia MD | | | 2019 | Visit | | [address] | | | | | | [place] | | | | | | [id number] | | | | | | | | +--------+---------+ + + + | 11/24/ | Office | Cardiology | [place], | | | 2019 | Visit | | SINDHU Erickson [address] | | | | | | [place], | | | | | | [place] [address] | | | | | | [phone] | | | | | | | [...]
--- OUTSIDE RECORDS SUMMARY | ~2019-09-27 | XMS | Encounter Summary ---
Demographics + + + | Address | [address] | | | [place] [address] | + + + | Home Phone [...] Team Providers + +------+ + | Care Arborist Climber Name | Role | Phone | + +------+ + PCP | Unavailable | + +------+ + Encounter Details +--------+ + + + + | Date | Type | Department | Care Team | Description | +--------+ + + + + | 03/04/ | Hospital | [facility] | Jason Carvajal, | | | 2010 - | Encounter | MED CTR MED ONC | [address] | | | | | [address] | [address] [place] | | | 03/06/ | | [place] [address] | [address] | | | 2010 | | [phone] | | | +--------+ + + + [...] [place] | | | | | | [address] | | | | | | | | +--------+---------+ + + + | 11/24/ | Office | Cardiology | [place], | | | 2019 | Visit | | SINDHU Erickson [address] | | | | | | [place], | | | | | | [place] [address] | | | | | | [phone] | | | | | | | | +--------+---------+ + + + | 03/01/ | Office | Pulmonology | Mukul Clark MD | | | 2020 | Visit | | [address] | | | | | | [place] | | | | | | [address] | | | | | | | | +--------+---------+ + + + documented as of this encounter Visit Diagnoses Not on filedocumented in this encounter"
--- OUTSIDE RECORDS SUMMARY | ~2019-09-27 | XMS | Encounter Summary ---
Demographics + + + | Address | [address] | | | [place] [address] | + + + | Home Phone [...] | Author | [facility] | | | and [place] | + + + | Organization | [facility] | | | and [...] Team Providers + +------+ + | Care Gang Boss Name | Role | Phone | + +------+ + | Juan Cherry DO | PCP | | + +------+ + Encounter Details +--------+ + + + + | Date | Type | Department | Care Team | Description | +--------+ + + + + | 04/05/ | Hospital | [facility] | Yesenia Landin | | | 2013 | Encounter | MED [facility] EMERG[facility]Y | DO Cipriano Christin [facility] | | | | | CENTER [address] | [place], [place] | | | | | [place], [place] | [address] | | | | | [address] | | | | | | [phone] | Ozzy Aponte | | | | | | Ozzie Kebede MD | | | | | | [address] | | | | | | [place], [place] | | | | | | [address] | | | | | | | [...] | | | | | order to [facility]. | | | | [...] | | | | send order to [facility] | | | | | | | [facility]. | | | | | [...] | 1 | 5 | 03/22/19 | 07/25/201 | | HFA) 90 mcg/puff | the [...] encounter ED Notes Ozzy Aponte MD - 04/05/2013 9:49 [place] [address] Patient Name: JADYN SCHMITZ Provider: Unit #: [id number] [id number] : 1965 DATE: 04/05/2013 HISTORY OF PRESENT ILLNESS: This is a 48-year-old who presents to the emergency room after lifting a patient at a [place] [facility]. She felt a pop in her chest. She has had significant pain in her sternal area in her chest since this occurred. She states that she really was n ot trying to force the patient and lift heavily, but something happened to her chest with t he lifting that caused this pop and pain. She has had pain ever since then. She is having s ome difficulty with deep breathing and splinting of the chest wall. REVIEW OF SYSTEMS Complete review of systems completed by me, all components negative. PAST MEDICAL HISTORY: COPD, also fibromyalgia and osteoarthritis. SURGICAL HISTORY: Includes hysterectomy, right knee surgery and hernia repair. SOCIAL HISTORY: She smokes 3 cigarettes per day, denies substance abuse and denies alcohol . MEDICATIONS Include. 1. Albuterol. 2. Tylenol. 3. Cymbalta. 4. Advair. 5. Neurontin. 6. Ipratropium. 7. Levothyroxine. 8. Multivitamin. 9. Omeprazole. 10. Prednisone. 11. Maxalt. 12. Spiriva. 13. Tramadol. 14. Geodon. ALLERGIES: INCLUDE 1. ERYTHROMYCIN. 2. NSAIDS. 3. TETRACYCLINE. 4. MEPERIDINE. 5. ONIONS. PHYSICAL EXAMINATION GENERAL: The patient is awake and alert, splinting in pain to her chest on examination. VITAL SIGNS: Blood pressure is 114/65, heart rate of 113, respirations 16, O2 saturation 9 4, temperature is 98.0. HEENT: Head is atraumatic. Pupils equal, round and reactive to light. Extraocular movement s intact. NECK: Supple, nontender, no lymphadenopathy. RESPIRATORY: Diminished breath sounds bilaterally. CHEST: Tender to palpation in the sternal region with splinting and retraction due to palp ation. No sign of crepitus or subcutaneous air. CARDIOVASCULAR: Regular rate and rhythm. ABDOMEN: Soft, nontender, no organomegaly. BACK: Normal to inspection. EXTREMITIES: Nonfocal. Full range of motion. NEUROLOGIC: A and O x4. Cranial nerves 2 through 12 intact. Motor and sensation in all ext remities within normal limits. FURTHER STUDIES: The patient had a chest x-ray, PA and lateral, which identified her soto um. No sign of sternal fracture, no sign of rib fractures. The patient is to take hydrocodo ne for pain. I also filled out occupational paperwork and restricted the patient's lifting to less than 30 pounds. The patient is to return for severe shortness of breath or worsenin g pain. CLINICAL IMPRESSION: CHEST WALL STRAIN. DICTATED BY: Ozzy Aponte MD Emergency Medicine JOB #: [id number] EXT JOB #:[id number] <<Signature on File>> Ozzy Aponte MD04/06/13 180 < Savanna benson in this encounter Plan of Treatment +--------+---------+ + + + | Date | Type | Specialty | Care Team | Description | +--------+---------+ + + + | 09/27/ | Office | Sleep Medicine | Meghan Garcia MD | | | 2019 | Visit | | [address] | | | | | | [place] | | | | | | [address] | | | | | | | | +--------+---------+ + + + | 11/24/ | Office | Cardiology | [place], | | | 2019 | Visit | | SINDHU Erickson [address] | | | | | | [address] [place] | | | | | | [place] [address] | | | | | | [phone] | | | | | | | | +--------+---------+ + + + | 03/01/ | Office | Pulmonology | Mukul Clark MD | | | 2020 | Visit | | [address] | | | | | | [place] | | | | | | [address] | | | | | | | [...] Performed At | + + + | [facility] | [place] | | Department [address] | [facility] | | [ rep [address]] [ rep [facility] | | st zip] Signed | - IMAGING | | | | | Patient Name: JADYN SCHMITZ | | | Physician: MARY : 1965 Age: 48 Sex: F Unit | | | #: [id number] Exam Date: 04/05/13 Location: | | | ER Report #: [id number] Page: | | | %(RAD)RES..mtdd.print.filter("pg") of %(RAD) | | | RES..mtdd.print.filter("tpg") | | | | | | Accession Number: [id number] | | | TWO VIEWS OF THE [...] Transcribed Date/Time: 04/06/2013 | | | 08:52 Agricultural Chemist: <<Signature | | | on File>> | | | Aditya Alonso | | | MD Claudio04/06/13 2310 <Electronically signed by Aditya Snyder MD> | | | Aditya Snyder MD 04/06/13 0845 Agricultural Chemist: | | | [employer] [id number]/11/14 0852 | | + + + + + + + + | Performing | Address | City/State/Zipcode | Phone Number | | Organization | | | | + + + + + | [facility] | [address] | [place] | [phone] | | [facility] | | [address] | | | - IMAGING | | | | + + + + + XR Chest PA and Lateral (04/06/2013 8:14 AM PST) + + | Specimen | + + | | + + + + + | Narrative | Performed At | + + + | [facility] | [place] | | Department [address] , [place] | [facility] | | [ rep ct [address]] [ rep ct [facility] | | st zip] Signed | - IMAGING | | | | | Patient Name: JADYN SCHMITZ | | | Physician: MARY : 1965 Age: 48 Sex: F Unit | | | #: [id number] Exam Date: 04/05/13 Location: | | | ER Report #: [id number] Page: | | | %(RAD)RES..mtdd.print.filter("pg") of %(RAD) | | | RES..mtdd.print.filter("tpg") | | | | | | Accession Number: [id number] | | | PA AND LATERAL CHEST: [...] Transcribed Date/Time: 04/06/2013 08:17 | | | Agricultural Chemist: <<Signature on File>> | | | | | | Aditya Snyder MD04/06/132 <Electronically signed by Aditya Alonso | | | Claudio PAUL> Aditya Snyder MD 04/06/13 0814 | | | Agricultural Chemist: [employer] [id number]/11/14 0817 | | | | | + + + + + + + + | Performing | Address | City/State/Zipcode | Phone Number | | Organization | | | | + + + + + | [facility] | [address] | [place] | [phone] | | [facility] | | [address] | | | - IMAGING | | | | + + + + + documented in this encounter Visit Diagnoses Not on filedocumented in this encounter
--- OUTSIDE RECORDS SUMMARY | ~2019-09-27 | XMS | Encounter Summary ---
Demographics + + + | Address | [address] | | | [place] [address] | + + + | Home Phone [...] Team Providers + +------+ + | Care Eyelet Riveter Name | Role | Phone | + +------+ + | Juan Cherry DO | PCP | | + +------+ + Encounter Details +--------+ + + + + | Date | Type | Department | Care Team | Description | +--------+ + + + + | 05/27/ | Documentati | [facility] | Kevin Weber, | | | 2013 | on | [facility] | PT | | | | | [address] [place] | | | | | | [place] [address] | | | | | | [phone] | | | +--------+ + + + [...] encounter Progress Notes Kevin Weber, PT - 05/27/2013 3:22 PM [facility] [address] [place] [address] Cancellation/No Show Date: 05/27/2013 Patient Information Patient Name: Rosario Malik Date of : 1965 Age: 48 y.o. Reason for missed visit: Patient ill Phone call placed: yes Plan: See patient at next visit. Electronically signed by: Kevin Weber PT, 05/27/2013 15:22 Patient Name: Rosario Malik/: 1965/ documented in this encounter Plan of Treatment +--------+---------+ + + + | Date | Type | Specialty | Care Team | Description | +--------+---------+ + + + | 09/27/ | Office | Sleep Medicine | Meghan Garcia MD | | | 2019 | Visit | | [address] | | | | | | [place] | | | | | | [address] | | | | | | | | +--------+---------+ + + + | 11/24/ | Office | Cardiology | [place], | | | 2019 | Visit | | SINDHU Erickson [address] | | | | | | [address] [place], | | | | | | [place] [address] | | | | | | [phone] | | | | | | | [...]
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
--- OUTSIDE RECORDS SUMMARY | ~2019-09-27 | XMS | Encounter Summary ---
Demographics + + + | Address | [address] | | | [place] [address] | + + + | Home Phone | | + + + | Preferred Language | Unknown | + + + | Marital Status | Single | + + + | Yarsanism Affiliation | 1041 | + + + | Race | Unknown | + + + | Ethnic Group | Unknown | + + + Author + + + | Author | [facility] | | | and [place] | + + + | Organization | [facility] | | | [...] Team Providers + +------+ + | Care Pot Pusher Name | Role | Phone | + +------+ + | Juan Cherry DO | PCP | | + +------+ + Encounter Details +--------+ + + + + | Date | Type | Department | Care Team | Description | +--------+ + + + + | 08/18/ | Abstract | [facility] | [place], | | | 2018 | | CARDIOLOGY [address] | SINDHU Erickson [address] | | | | | [place], | [place], | | | | | [place] [address] | [place] [address] | | | | | [phone] | [phone] | | | | | | | [...] [place] | | | | | | [id number] | | | | | | | | +--------+---------+ + + + | 11/24/ | Office | Cardiology | [place], | | | 2019 | Visit | | SINDHU Erickson [address] | | | | | | [place] | | | | | | [place] [address] | | | | | | [phone] | | | | | | | | +--------+---------+ + + + | 03/01/ | Office | Pulmonology | Mukul Clark MD | | | 2020 | Visit | | [address] | | | | | | [place] | | | | | | [id number] | | | | | | | | +--------+---------+ + + + documented as of this encounter Procedures + +--------+ + + + | Procedure Name | Priori | Date/Time | Associated Diagnosis | Comments | | | ty | | | | + +--------+ + + + | EXTERNAL LAB: BUN | Routin | 10/28/2017 | | Results for this | | | e | | | procedure are in the | | | | | | results section. | + +--------+ + + + | EXTERNAL LAB: | Routin | 10/28/2017 | | Results for this | | GLUCOSE | e | | | procedure are in the | | | | | | results section. | + +--------+ + + + | EXTERNAL LAB: ALT | Routin | 10/28/2017 | | Results for this | | | e | | | procedure are in the | | | | | | results section. | + +--------+ + + + | EXTERNAL LAB: AST | Routin | 10/28/2017 | | Results for this | | | e | | | procedure are in the | | | | | | results section. | + +--------+ + + + | EXTERNAL LAB: | Routin | 10/28/2017 | | Results for this | | ALKALINE PHOSPHATASE | e | | | procedure are in the | | | | | | results section. | + +--------+ + + + | EXTERNAL LAB: | Routin | 10/28/2017 | | Results for this | | BILIRUBIN, TOTAL | e | | | procedure are in the | | | | | | results section. | + +--------+ + + + | EXTERNAL LAB: | Routin | 10/28/2017 | | Results for this | | ALBUMIN | e | | | procedure are in the | | | | | | results section. | + +--------+ + + + | EXTERNAL LAB: | Routin | 10/28/2017 | | Results for this | | PROTEIN, TOTAL | e | | | procedure are in the | | | | | | results section. | + +--------+ + + + | EXTERNAL LAB: | Routin | 10/28/2017 | | Results for this | | CALCIUM | e | | | procedure are in the | | | | | | results section. | + +--------+ + + + | EXTERNAL LAB: CARBON | Routin | 10/28/2017 | | Results for this | | DIOXIDE | e | | | procedure are in the | | | | | | results section. | + +--------+ + + + | EXTERNAL LAB: | Routin | 10/28/2017 | | Results for this | | CHLORIDE | e | | | procedure are in the | | | | | | results section. | + +--------+ + + + | EXTERNAL LAB: | Routin | 10/28/2017 | | Results for this | | POTASSIUM | e | | | procedure are in the | | | | | | results section. | + +--------+ + + + | EXTERNAL LAB: SODIUM | Routin | 10/28/2017 | | Results for this | | | e | | | procedure are in the | | | | | | results section. | + +--------+ + + + | EXTERNAL LAB: | Routin | 10/28/2017 | | Results for this | | TRIGLYCERIDES | e | | | procedure are in the | | | | | | results section. | + +--------+ + + + | EXTERNAL LAB: | Routin | 10/28/2017 | | Results for this | | CHOLESTEROL, HDL | e | | | procedure are in the | | | | | | results section. | + +--------+ + + + | EXTERNAL LAB: | Routin | 10/28/2017 | | Results for this | | CHOLESTEROL, TOTAL | e | | | procedure are in the | | | | | | results section. | + +--------+ + + + | EXTERNAL LAB: | Routin | 10/28/2017 | | Results for this | | CHOLESTEROL, LDL | e | | | procedure are in the | | | | | | results section. | + +--------+ + + + | EXTERNAL LAB: EGFR | Routin | 10/28/2017 | | Results for this | | | e | | | procedure are in the | | | | | | results section. | + +--------+ + + + | EXTERNAL LAB: | Routin | 10/28/2017 | | Results for this | | CREATININE | e | | | procedure are in the | | | | | | results section. | + +--------+ + + + | LIPID PANEL | Routin | 10/28/2017 | | Results for this | | | e | | | procedure are in the | | | | | | results section. | + +--------+ + + + | COMPREHENSIVE | Routin | 10/28/2017 | | Results for this | | METABOLIC PANEL | e | | | procedure are in the | | | | | | results section. | + +--------+ + + + documented in this encounter Results Comprehensive Metabolic Panel (10/28/2017) + +-------+ + + + | Component | Value | Ref Range | Performed | Pathologist | | | | | At | Signature | + +-------+ + + + | Anion Gap | 12 | 3 - 12 mmol/L | | | + +-------+ + + + | Bun/Creatin | 11.11 | | | | | ine | | | | | + +-------+ + + + + + | Specimen | + + | Blood | + + Lipid Panel (10/28/2017) + +-------+ + + + | Component | Value | Ref Range | Performed | Pathologist | | | | | At | Signature | + +-------+ + + + | Chol/HDL | 4.0 | 0.0 - 5.0 | | | | Ratio | | | | | + +-------+ + + + + + | Specimen | + + | Blood | + + External Lab: BUN (10/28/2017) + +-------+ + + + | Component | Value | Ref Range | Performed | Pathologist | | | | | At | Signature | + +-------+ + + + | BUN, | 7 | 7 - 18 | EXTERNAL | | | External | | | LAB | | + +-------+ + + + + +---------+ + + | Performing | Address | City/State/Zipcode | Phone Number | | Organization | | | | + +---------+ + + | EXTERNAL LAB | | | | + +---------+ + + External Lab: Glucose (10/28/2017) + +---------+ + + + | Component | Value | Ref Range | Performed | Pathologist | | | | | At | Signature | + +---------+ + + + | Glucose, | 138 (A) | 70 - 100 | EXTERNAL | | | External | | | LAB | | + +---------+ + + + + +---------+ + + | Performing | Address | City/State/Zipcode | Phone Number | | Organization | | | | + +---------+ + + | EXTERNAL LAB | | | | + +---------+ + + External Lab: ALT (10/28/2017) + +-------+ + + + | Component | Value | Ref Range | Performed | Pathologist | | | | | At | Signature | + +-------+ + + + | ALT, | 14 | 10 - 48 | EXTERNAL | | | External | | | LAB | | + +-------+ + + + + +---------+ + + | Performing | Address | City/State/Zipcode | Phone Number | | Organization | | | | + +---------+ + + | EXTERNAL LAB | | | | + +---------+ + + External Lab: AST (10/28/2017) + +-------+ + + + | Component | Value | Ref Range | Performed | Pathologist | | | | | At | Signature | + +-------+ + + + | AST, | 21 | 10 - 42 | EXTERNAL | | | External | | | LAB | | + +-------+ + + + + +---------+ + + | Performing | Address | City/State/Zipcode | Phone Number | | Organization | | | | + +---------+ + + | EXTERNAL LAB | | | | + +---------+ + + External Lab: Alkaline Phosphatase (10/28/2017) + +-------+ + + + | Component | Value | Ref Range | Performed | Pathologist | | | | | At | Signature | + +-------+ + + + | ALP, | 69 | 32 - 92 | EXTERNAL | | | External | | | LAB | | + +-------+ + + + + +---------+ + + | Performing | Address | City/State/Zipcode | Phone Number | | Organization | | | | + +---------+ + + | EXTERNAL LAB | | | | + +---------+ + + External Lab: Bilirubin, Total (10/28/2017) + +-------+ + + + | Component | Value | Ref Range | Performed | Pathologist | | | | | At | Signature | + +-------+ + + + | Bilirubin, | 0.5 | 0.2 - 1.2 | EXTERNAL | | | Total, | | | LAB | | | External | | | | | + +-------+ + + + + +---------+ + + | Performing | Address | City/State/Zipcode | Phone Number | | Organization | | | | + +---------+ + + | EXTERNAL LAB | | | | + +---------+ + + External Lab: Albumin (10/28/2017) + +---------+ + + + | Component | Value | Ref Range | Performed | Pathologist | | | | | At | Signature | + +---------+ + + + | Albumin, | 3.4 (A) | 3.5 - 5 | EXTERNAL | | | External | | | LAB | | + +---------+ + + + + +---------+ + + | Performing | Address | City/State/Zipcode | Phone Number | | Organization | | | | + +---------+ + + | EXTERNAL LAB | | | | + +---------+ + + External Lab: Protein, Total (10/28/2017) + +-------+ + + + | Component | Value | Ref Range | Performed | Pathologist | | | | | At | Signature | + +-------+ + + + | Protein, | 6.1 | 6 - 8.1 | EXTERNAL | | | Total, | | | LAB | | | External | | | | | + +-------+ + + + + +---------+ + + | Performing | Address | City/State/Zipcode | Phone Number | | Organization | | | | + +---------+ + + | EXTERNAL LAB | | | | + +---------+ + + External Lab: Calcium (10/28/2017) + +-------+ + + + | Component | Value | Ref Range | Performed | Pathologist | | | | | At | Signature | + +-------+ + + + | Calcium, | 9.2 | 8.4 - 10.5 | EXTERNAL | | | External | | | LAB | | + +-------+ + + + + +---------+ + + | Performing | Address | City/State/Zipcode | Phone Number | | Organization | | | | + +---------+ + + | EXTERNAL LAB | | | | + +---------+ + + External Lab: Carbon Dioxide (10/28/2017) + +-------+ + + + | Component | Value | Ref Range | Performed | Pathologist | | | | | At | Signature | + +-------+ + + + | Carbon | 26 | 21 - 31 | EXTERNAL | | | Dioxide, | | | LAB | | | External | | | | | + +-------+ + + + + +---------+ + + | Performing | Address | City/State/Zipcode | Phone Number | | Organization | | | | + +---------+ + + | EXTERNAL LAB | | | | + +---------+ + + External Lab: Chloride (10/28/2017) + +-------+ + + + | Component | Value | Ref Range | Performed | Pathologist | | | | | At | Signature | + +-------+ + + + | Chloride, | 100 | 98 - 107 | EXTERNAL | | | External | | | LAB | | + +-------+ + + + + +---------+ + + | Performing | Address | City/State/Zipcode | Phone Number | | Organization | | | | + +---------+ + + | EXTERNAL LAB | | | | + +---------+ + + External Lab: Potassium (10/28/2017) + +-------+ + + + | Component | Value | Ref Range | Performed | Pathologist | | | | | At | Signature | + +-------+ + + + | Potassium, | 4.3 | 3.6 - 5 | EXTERNAL | | | External | | | LAB | | + +-------+ + + + + +---------+ + + | Performing | Address | City/State/Zipcode | Phone Number | | Organization | | | | + +---------+ + + | EXTERNAL LAB | | | | + +---------+ + + External Lab: Sodium (10/28/2017) + +--------+ + + + | Component | Value | Ref Range | Performed | Pathologist | | | | | At | Signature | + +--------+ + + + | Sodium, | 38 (A) | 135 - 145 | EXTERNAL | | | External | | | LAB | | + +--------+ + + + + +---------+ + + | Performing | Address | City/State/Zipcode | Phone Number | | Organization | | | | + +---------+ + + | EXTERNAL LAB | | | | + +---------+ + + External Lab: Triglycerides (10/28/2017) + +---------+ + + + | Component | Value | Ref Range | Performed | Pathologist | | | | | At | Signature | + +---------+ + + + | Triglycerid | 277 (A) | 35 - 160 | EXTERNAL | | | es, | | | LAB | | | External | | | | | + +---------+ + + + + + | Specimen | + + | Blood | + + + +---------+ + + | Performing | Address | City/State/Zipcode | Phone Number | | Organization | | | | + +---------+ + + | EXTERNAL LAB | | | | + +---------+ + + External Lab: Cholesterol, HDL (10/28/2017) + +-------+ + + + | Component | Value | Ref Range | Performed | Pathologist | | | | | At | Signature | + +-------+ + + + | HDL | 50 | 40 - 85 mg/dl | EXTERNAL | | | Cholesterol | | | LAB | | | , External | | | | | + +-------+ + + + + + | Specimen | + + | Blood | + + + +---------+ + + | Performing | Address | City/State/Zipcode | Phone Number | | Organization | | | | + +---------+ + + | EXTERNAL LAB | | | | + +---------+ + + External Lab: Cholesterol, Total (10/28/2017) + +-------+ + + + | Component | Value | Ref Range | Performed | Pathologist | | | | | At | Signature | + +-------+ + + + | Cholesterol | 194 | 120 - 200 mg/dl | EXTERNAL | | | , Total, | | | LAB | | | External | | | | | + +-------+ + + + + + | Specimen | + + | Blood | + + + +---------+ + + | Performing | Address | City/State/Zipcode | Phone Number | | Organization | | | | + +---------+ + + | EXTERNAL LAB | | | | + +---------+ + + External Lab: Cholesterol, LDL (10/28/2017) + +-------+ + + + | Component | Value | Ref Range | Performed | Pathologist | | | | | At | Signature | + +-------+ + + + | LDL | 88 | 0 - 99 | EXTERNAL | | | Cholesterol | | | LAB | | | , Direct, | | | | | | External | | | | | + +-------+ + + + + + | Specimen | + + | Blood | + + + +---------+ + + | Performing | Address | City/State/Zipcode | Phone Number | | Organization | | | | + +---------+ + + | EXTERNAL LAB | | | | + +---------+ + + External Lab: eGFR (10/28/2017) + +-------+ + + + | Component | Value | Ref Range | Performed | Pathologist | | | | | At | Signature | + +-------+ + + + | eGFR, | 60 | 60 | EXTERNAL | | | External | | | LAB | | + +-------+ + + + + + | Specimen | + + | Blood | + + + +---------+ + + | Performing | Address | City/State/Zipcode | Phone Number | | Organization | | | | + +---------+ + + | EXTERNAL LAB | | | | + +---------+ + + External Lab: Creatinine (10/28/2017) + +-------+ + + + | Component | Value | Ref Range | Performed | Pathologist | | | | | At | Signature | + +-------+ + + + | Creatinine, | 0.6 | 0.6 - 1.3 | EXTERNAL | | | External | | | LAB | | + +-------+ + + + + + | Specimen | + + | Blood | + + + +---------+ + + | Performing | Address | City/State/Zipcode | Phone Number | | Organization | | | | + +---------+ + + | EXTERNAL LAB | | | | + +---------+ + + documented in this encounter Visit Diagnoses Not on filedocumented in this encounter"
--- OUTSIDE RECORDS SUMMARY | ~2019-09-27 | XMS | Encounter Summary ---
Demographics + + + | Address | [address] | | | [place] [address] | + + + | Home Phone [...] + + + | Author | [facility] | | | and [place] | + + + | Organization | [facility] [...] Team Providers + +------+ + | Care Grain Combine Driver Name | Role | Phone | [...] Description | +--------+--------+ + + + | 01/23/ | Refill | [facility] | Kevin Sandoval, | Medication Refill | | 2013 | | PULMONARY [address] | MD [address] | | | | | [place], | [place] | | | | | [place] [address] | [address] | | | | | [phone] | | | +--------+--------+ + + + [...] [place] | | | | | | [id number] | | | | | | | | +--------+---------+ + + + | 11/24/ | Office | Cardiology | [place] | | | 2019 | Visit | | SINDHU Erickson [address] | | | | | | [place] | | | | | | [place] [address] | | | | | | [phone] | | | | | | | [...]
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
--- OUTSIDE RECORDS SUMMARY | ~2019-09-27 | XMS | Encounter Summary ---
Demographics + + + | Address | [address] | | | [place] [address] | + + + | Home Phone | | + + + | Preferred Language | Unknown | + + + | Marital Status | Single | + + + | Taoism Affiliation | [id number] | + + + [...] Team Providers + +------+ + | Care Moving Worker Name | Role | Phone | + +------+ + | Juan Cherry DO | PCP | | + +------+ + Reason for Visit + +--------+ + | Reason | Onset | Comments | | | Date | | + +--------+ + | Appointment | 09/12/ | | | | 2014 | | + +--------+ + Encounter Details +--------+ + + + + | Date | Type | Department | Care Team | Description | +--------+ + + + + | 09/12/ | Telephone | [facility] | Jared Mcdonough, | Appointment | | 2014 | | CARDIOLOGY [address] | MD [address] [place] | | | | | [place], | [place], | | | | | [place] [address] | [place] [address] | | | | | [phone] | [phone] | | | | | | | [...] this encounter Miscellaneous Notes Telephone Encounter - Radha Olvera - 09/12/2014 8:40 AM PDTPatient is scheduled. Electro nically signed by Radha Olvera at 09/12/2014 8:40 AM PDTTelephone Encounter - Madison Fan - 09/12/2014 8:23 AM PDTPatient needs scheduled for a three month follow up from 0 6-24-15. A voicemail was left. 8 :24 AM PDTdocumented in this encounter Plan of [...] [place] | | | | | | [address] | | | | | | | | +--------+---------+ + + + | 11/24/ | Office | Cardiology | [place], | | | 2019 | Visit | | [address] | | | | | | [place], | | | | | | [place] [address] | | | | | | [phone] | | | | | | | | +--------+---------+ + + + | 03/01/ | Office | Pulmonology | Mukul Clark MD | | | 2020 | Visit | | [address] | | | | | | [place] | | | | | | [address] | | | | | | | | +--------+---------+ + + + documented as of this encounter Visit Diagnoses Not on filedocumented in this encounter"
--- OUTSIDE RECORDS SUMMARY | ~2019-09-27 | XMS | Encounter Summary ---
Demographics + + + | Address | [address] | | | [place] [address] | + + + | Home Phone [...] Team Providers + +------+ + | Care Multimedia Production Assistant Name | Role | Phone | + +------+ + | Juan Cherry DO | PCP | | + +------+ + Encounter Details +--------+ + + + + | Date | Type | Department | Care Team | Description | +--------+ + + + + | 09/09/ | Hospital | [facility] GENER[facility] IP | Conversion | Pain | | 2015 | Encounter | [address]VERSION [address] | Transaction, | | | | | [address] | Provider Unknown | | | | | [place], [place] | [phone] | | | | | [address] | | | | | | [phone] | | | +--------+ + + + [...] | | | | | | [facility]. | | | | | [...] | | | | | ([facility]) | | | | | | [...] | | | | | ([facility]) | | | | | | [...] [place] | | | | | | [address] | | | | | | | | +--------+---------+ + + + | 11/24/ | Office | Cardiology | [place], | | | 2019 | Visit | | [address] | | | | | | [place] | | | | | | [place] [address] | | | | | | [phone] | | | | | | | | +--------+---------+ + + + | 03/01/ | Office | Pulmonology | Mukul Clark MD | | | 2020 | Visit | | [address] | | | | | | [place] | | | | | | [address] | | | | | | | | +--------+---------+ + + + documented as of this encounter Procedures + +--------+ + + + | Procedure Name | Priori | Date/Time | Associated Diagnosis | Comments | | | ty | | | | + +--------+ + + + | XR CHEST 1 VIEW | Routin | 04/12/2013 | | Results for this | | | e | 1:12 AM | | procedure are in the | | | | PST | | results section. | + +--------+ + + + documented in this encounter Results XR Chest 1 Vw (04/12/2013 1:12 AM PST) + + | Specimen | [...]
--- OUTSIDE RECORDS SUMMARY | ~2019-09-27 | XMS | Encounter Summary ---
Demographics + + + | Address | [address] | | | [place] [address] | + + + | Home Phone [...] Team Providers + +------+ + | Care Precision Farming Specialist Name | Role | Phone | + +------+ + | Juan Cherry DO | PCP | | + +------+ + Encounter Details +--------+ + + + + | Date | Type | Department | Care Team | Description | +--------+ + + + + | 09/09/ | Hospital | [facility] GENER[facility] IP | Conversion | Pain | | 2015 | Encounter | [address]VERSION [address] | Transaction, | | | | | [address] | Provider Unknown | | | | | [place], [place] | [phone] | | | | | [address] | | | | | | [phone] | | | +--------+ + + + [...] | | | | | order to [facility]. | | | | | [...] | | | | send order to [facility] | | | | | | | [facility]. | | | | | | [...] | | | | | ([facility]) | | | | | [...] | | | | | ([facility]) | | | | | [...] [place] | | | | | | [address] | | | | | | | | +--------+---------+ + + + | 11/24/ | Office | Cardiology | [place], | | | 2019 | Visit | | SINDHU [address] | | | | | | [place] | | | | | | [place] [address] | | | | | | [phone] | | | | | | | | +--------+---------+ + + + | 03/01/ | Office | Pulmonology | Mukul Clark MD | | | 2020 | Visit | | [address] | | | | | | [place] | | | | | | [address] | | | | | | | | +--------+---------+ + + + documented as of this encounter Procedures + +--------+ + + + | Procedure Name | Priori | Date/Time | Associated Diagnosis | Comments | | | ty | | | | + +--------+ + + + | CV CARDIAC PROCEDURE | Routin | 02/28/2014 | | Results for this | | | e | 1:10 AM | | procedure are in the | | | | PST | | results section. | + +--------+ + + + documented in this encounter Results CV CARDIAC PROCEDURE (02/28/2014 1:10 AM PST) + + | Specimen | + + | | + + + + + | Narrative | Performed At | + + + | This is a non-reportable procedure without a radiologist report and | | | is used for image storage only | | + + + + + | Procedure Note | + + | Roger Mcbride - 10/14/2018 2:36 PM PDT This is a non-reportable procedure | | without a radiologist report and isused for image storage only | + + documented in this encounter Visit Diagnoses + + | Diagnosis | + + | Pain Generalized pain | + + documented in this encounter"
--- OUTSIDE RECORDS SUMMARY | ~2019-09-27 | XMS | Encounter Summary ---
Demographics + + + | Address | [address] | | | [place] [address] | + + + | Home Phone [...] Team Providers + +------+ + | Care Commodity Manager Name | Role | Phone | [...] + + | 09/12/ | Telephone | [facility] | Jared Mcdonough, | Appointment | | 2014 | | CARDIOLOGY [address] | MD [address] [place] | | | | | [place], | [place], | | | | | [place] [address] | [place] [address] | | | | | [phone] | [phone] | | | | | | | [...] [place] | | | | | | [address] | | | | | | | | +--------+---------+ + + + | 11/24/ | Office | Cardiology | [place], | | | 2019 | Visit | | [address] | | | | | | [place], | | | | | | [place] [address] | | | | | | [phone] | | | | | | | | +--------+---------+ + + + | 03/01/ | Office | Pulmonology | Mukul Clark MD | | | 2020 | Visit | | [address] | | | | | | [place] | | | | | | [address] | | | | | | | | +--------+---------+ + + + documented as of this encounter Visit Diagnoses Not on filedocumented in this encounter"
--- OUTSIDE RECORDS SUMMARY | ~2019-09-27 | XMS | Encounter Summary ---
Demographics + + + | Address | [address] | | | [place] [address] | + + + | Home Phone [...] Team Providers + +------+ + | Care Nursing Student Name | Role | Phone | + [...] Radiology | Diagnoses | Sharonda, | [facility] | | | | | | MD Jared | [address] | | | | | Pericarditis | [address] | [place], | | | | | Procedures | [address] | [place] | | | | | ECHO | [place], | [address] | | | | | Complete | [place] [address] | Phone: | | | | | | Phone: | [phone] | | | | | | [phone] | Fax: | | | | | | Fax: | [phone] | | | | | | [phone] | | +--------+--------+ + + + + Reason for Visit + + + | Reason | Comments | + + + | Follow-up | Saw Dr. Ding on 11/19/2013 | + + + | Palpitations | | + + + | Tachycardia | | + + + Encounter Details +--------+ + + + + | Date | Type | Department | Care Team | Description | +--------+ + + + + | 01/11/ | Off-Site | [facility] [place] | Jared Mcdonough, | Other chest pain | | 2013 | Visit | CARDIOLOGY [address] | (Primary Dx); | | | | [address] [place], | [place], | Palpitation; | | | | [place] [address] | [place] [address] | Tachycardia; | | | | [phone] | [phone] | Pericarditis | | | | | | | [...] + + + | Blood Pressure | 80/58 | 01/11/2014 8:34 AM | right arm | | | | PST | | + + + + + | Pulse | 102 | 01/11/2014 8:34 AM | regular | | | | PST | | + + + + + | Temperature | - | - | | + + + + + | Respiratory Rate | 16 | 01/11/2014 8:34 AM | | | | | PST | | + + + + + | Oxygen Saturation | - | - | | + + + + + | Inhaled Oxygen | - | - | | | Concentration | | | | + + + + + | Weight | 68.9 kg (151 lb 12.8 | 01/11/2014 8:34 AM | | | | oz) | PST | | + + + + + | Height | 157.5 cm (5' 2") | 01/11/2014 8:34 AM | | | | | PST | | + + + + + | Body Mass Index | 27.76 | 01/11/2014 8:34 AM | | | | | PST [...] encounter Progress Notes Jared Mcdonough MD - 01/11/2014 8:42 AM PSTFormatting of this note might be different f rom the original. PATIENT NAME: Rosario Malik : 1965: AGE: 49 y.o. PRIMARY CARE: Juan Cherry DO OUTPATIENT FOLLOW UP VISIT Date of Service: 01/11/2014 HISTORY OF PRESENT ILLNESS: Rosario Malik is a 49 y.o. female with a suspecting history of pericarditis, history of paroxysmal atrial tachycardia with palpitation, emphysema, hypothyroidism obstructive sl eep apnea and nocturnal hypoxemia. She is being seen today for follow up palpitation and ne w onset chest pain. She was last seen 10/05/2013 at which time patient was referred to Dr. Ding to discuss at [facility] tachycardia ablation. Patient was seen by Dr. Ding on 11/19/13. It was planned to p ut on a event monitor and consider flecainide 50 mg twice a day. Because of the concern ove r interaction with psych medications, and it was not started. The result of event monitor i s not available at this time. Today, her main complaint is a sharp chest pain that is aggravated when she takes deep michaela th and sits up. Symptom is better when she lays down. She also complained of the trouble b reathing on exertion. She was seen at the ED of [facility] 3 weeks ago. There was no specific treatment. Otherwise, she has no palpitation, dizziness or lightheaded ness. There is no ankle leg swelling. MEDICAL, SURGICAL, AND PERSONAL [...] rhinitis Tachycardia Palpitations Tachyarrhythmia Asthma Emphysema Migraine CURRENT MEDICATIONS Current Outpatient Prescriptions Medication Sig Dispense Refill albuterol (PROAIR HFA) 90 mcg/puff inhaler Inhale 2 puffs into the lungs every 6 hours as needed for Wheezing or Shortness of Breath. 1 Inhaler 5 albuterol-ipratropium (DUONEB) 2.5-0.5 mg/3 mL SOLN Take 3 mLs by nebulization every 4 hours as needed. 360 mL 3 DULoxetine (CYMBALTA) 60 MG capsule Take [...] by mouth Daily. Respiratory Therapy Supplies [facility] [place] Incentive spirometer. Please provide instructions in use. Dx: 848.8 MADELEINE: 3 months 1 each 99 Respiratory Therapy Supplies MISC Please provide patient with necessary CPAP supplies ( she did not specify, okay to send order as appropriate) Diagnosis Code(s)327.23 . Length of Need 99 months. Please send order to [facility]. 1 each 0 Respiratory Therapy Supplies MISC Change CPAP back to 11-14 cm H2O. All necessary suppl ies. No oxygen bleed in. Diagnosis Code(s)327.23. Length of Need: Lifetime. Please send orde r to [facility]. This is not a new order, [...] capsule INHALE CONTENTS OF ONE CAPSULE VIA HANDIHA LER EVERY DAY 30 capsule 0 traMADol (ULTRAM) 50 mg tablet Take 50 mg by mouth 4 times daily. ziprasidone (GEODON) 80 MG capsule Take 80 mg by mouth 2 times daily. ALLERGIES Allergies Allergen Reactions Onion Extract Throat Swells Doxycycline Hives Erythromycin Base Other (See Comments) Bloating and swelling, lips swell Nsaids Hives Pork Allergy Meperidine Panic attacks ROS Review of Systems Cardiovascular: Positive for chest pain. OBJECTIVE: PHYSICAL EXAM BP 80/58 | Pulse 102 | Resp 16 | Ht 1.575 m (5' 2") | Wt 68.856 kg (151 lb 12.8 oz) | BMI 2 7.76 kg/m2 Physical Exam Constitutional: She appears well-developed [...] the left side. No rub. Pulmonary/Chest: Effort normal and breath sounds normal. [...] does not e xhibit a depressed mood. ECG: Sinus rhythm, normal EKG LAB RESULTS: LIPID No results found for [...] HGBEX 14.5 05/10/2013 I reviewed records from Lencho Ding M.D. for office visit on 11/19/13. ASSESSMENT: 1. Suspecting pericarditis A. Today, her main complaint is a sharp chest pain that is aggravated when she takes deep breath and sits up. Symptom is better when she lays down. She also complained of the troub le breathing on exertion. She was seen at the ED of [facility] 3 weeks ag o. according to the history, I suspect that she has pericarditis. However, EKG shows no ST elevation. Physical exam shows no pericardial rub. Patient states that she is allergic to NSAID's There is no signs and symptoms of overt congestive heart failure. She is in a class II of [employer] functional class. There is no fluid retention on physical exami nation. 2.Palpitation secondary to the paroxysmal atrial tachycardia A. [...] and ventricular function don e at the [facility]. LVEF 78%. C. Holter Monitor 08/16/13 [...] about natural course, treatment and prognosis of poten tial pericarditis. 2. I offer ibuprofen which he refuses to take. Therefore, I will go with claudication 0.6 mg twice a day. 3. Echocardiogram is warranted to assess cardiac structure and pericardial effusion. 4. Followup in 2-4 weeks. Electronically signed by: Jared Mcdonough MD [facility] 01/11/2014 Portions of this chart may have been created with [employer] voice recognition software. Occasi onal wrong-word or sound-alike substitutions may have occurred due to the inherent cárdenas itations of voice recognition software. Please read the chart carefully and recognize, using context, where these substitutions have occurred. documented in this encounter Procedure Notes TRINITY LOVETTGA - 01/11/2014 12:00 AM PSTAssociated Order(s): ECG - EXTERNAL SCANBisi lacey signed by Rolando Pozo at 01/12/2014 11:24 AM PSTdocumented in this encounter Plan of Treatment [...] | | | | | | [place] [address] | | | | | | [phone] | | | | | | | | +--------+---------+ + + + | 03/01/ | Office | Pulmonology | Mukul Clark MD | | | 2020 | Visit | | [address] | | | | | | [place], [place] | | | | | | [address] | | | | | | | | +--------+---------+ + + + + +------+--------+ + + | Name | Type | Priori | Associated Diagnoses | Order Schedule | | | | ty | | | + +------+--------+ + + | ECG 12 lead | ECG | Routin | Other chest pain | Ordered: 01/11/2014 | | | | e | Palpitation | | | | | | Tachycardia | | + +------+--------+ + + documented as of this encounter Procedures + +--------+ + + + | Procedure Name | Priori | Date/Time | Associated Diagnosis | Comments | | | ty | | | | + +--------+ + + + | ECG - EXTERNAL SCAN | | 01/11/2014 | | Results for this | | | | 12:00 AM | | procedure are in the | | | | PST | | results section. | + +--------+ + + + documented in this encounter Results ECHO Complete (01/14/2014 8:38 AM PST) + + | Specimen | + + | | + + + + + | Narrative | Performed At | + + + | [facility] ECHOCARDIOGRAM REPORT | [place] | | STUDY DATE: 01/14/2014 PATIENT NAME: Rosario Malik | [facility] | | : 1965 PCP: Juan Cherry, [facility] | | CLINICAL HISTORY/DIAGNOSIS: Pericarditis/pericardial effusion A | - IMAGING | | transthoracic echocardiogram with M-mode, pulsed-wave and color | | | Doppler was performed with standard views obtained. The technical | | | quality of this examination is good. The heart rhythm during the | | | echo is sinus rhythm. The M-mode, two-dimensional, color flow and | | | spectral Doppler data were reviewed and support the following | | | interpretation: Interpretation: Left Atrium: Left atrial size is | | | normal. Left ventricle: Left ventricular size is normal with normal | | | wall thickness and motion, and normal left ventricular systolic | | | function. The estimated ejection fraction is 65 %. Grade 1 left | | | ventricular diastolic dysfunction. Aortic root: Aortic root is | | | normal. Right Atrium: Right atrial sizes normal. Right ventricle: | | | Right ventricular size is normal with normal wall thickness and | | | normal right ventricular systolic function. Pericardium: | | | Pericardium is normal. Pulmonary artery: Pulmonary artery is | | | normal. normal right-sided pressure Aortic valve: Aortic valve is | | | trileaflet and opens normally. Mitral valve: Mitral valve is | | | normal. trace mitral valve regurgitation Pulmonic valve: Pulmonic | | | valve is normal. Tricuspid valve: Tricuspid valve is normal. trace | | | tricuspid valve regurgitation Vena cava: The inferior vena cava | | | is normal. There is greater than 50% inspiratory collapse of the | | | IVC. IMPRESSIONS: 1. Normal left ventricular size, wall | | | thickness and motion. Preserved left ventricular systolic | | | function. LVEF is 65%. 2. Grade 1 left ventricular diastolic | | | dysfunction. 3. Trace mitral valve regurgitation. 4. Trace | | | tricuspid valve the patient. 5. Normal right-sided pressure. 6. | | | Normal IVC with normal respiratory collapse. 7. No pericardial | | | effusion noted. Measurements: Height:5'2" Weight: 151lbs | | | Aortic root: 34 mm Aortic cusp sep: 18 mm LA: 32 mm | | | IVS-diastole: 10 mm IVS-systole: 15 mm LVPW diastole: 9 mm | | | LVPW systole: 17 mm LV diameter-diastole: 49 mm LV | | | diameter-systole: 30 mm Fractional shortenin % PFV aortic | | | valve: m/s MPG mitral valve: mmHg PFV TR jet: 1.9 m/s RA/RV | | | PP.4 mmHg LA volume: 30 mL LA index: 18 mL/m2 Mitral | | | Inflow DT: 262 ms IVRT: 75 ms Valsalva: Negative PWDTI S | | | wave: 8.7 cm/s PWDTI E wave: 9.0 cm/s PWDTI A wave: 11.5 cm/s | | | E/A Ratio: 0.783 E/E Ratio: 8.95 Signed by: | | | Jared Mcdonough MD [facility] 01/14/2014 8:40 Telegraph Inspector: | | | Charmaine Ibarra RDMS | | + + + + + | Procedure Note | + + | Jared Mcdonough MD - 01/14/2014 11:28 AM [facility] | | CENTERECHOCARDIOGRAM REPORTSTUDY DATE: 01/14/2014PATIENT NAME: Rosario AyersOB: | | 1965MRN: [id number]: EFREN GuillaumeLINICAL HISTORY/DIAGNOSIS: | | Pericarditis/pericardial effusionA transthoracic echocardiogram with M-mode, pulsed-wave | | and color Doppler was performed with standard views obtained. The technical quality of | | this examination is good. The heart rhythm during the echo is sinus rhythm. The | | M-mode, two-dimensional, color flow and spectral Doppler data were reviewed and support | | the following interpretation:Interpretation:Left Atrium: Left atrial size is normal.Left | | ventricle: Left ventricular size is normal with normal wall thickness and motion, and | | normal left ventricular systolic function. The estimated ejection fraction is 65 %. | | Grade 1 left ventricular diastolic dysfunction. Aortic root: Aortic root is normal.Right | | Atrium: Right atrial sizes normal.Right ventricle: Right ventricular size is normal | | with normal wall thickness and normal right ventricular systolic function.Pericardium: | | Pericardium is normal.Pulmonary artery: Pulmonary artery is normal. normal right-sided | | pressureAortic valve: Aortic valve is trileaflet and opens normally.Mitral valve: | | Mitral valve is normal. trace mitral valve regurgitationPulmonic valve: Pulmonic valve | | is normal.Tricuspid valve: Tricuspid valve is normal. trace tricuspid valve | | regurgitationVena cava: The inferior vena cava is normal. There is greater than 50% | | inspiratory collapse of the IVC.IMPRESSIONS:1. Normal left ventricular size, wall | | thickness and motion. Preserved left ventricular systolic function. LVEF is 65%.2. | | Grade 1 left ventricular diastolic dysfunction.3. Trace mitral valve regurgitation.4. | | Trace tricuspid valve the patient.5. Normal right-sided pressure.6. Normal IVC with | | normal respiratory collapse.7. No pericardial effusion | | noted.Measurements:Height:5'2"Weight: 151lbsAortic root: 34 mmAortic cusp sep: 18 | | mmLA: 32 mmIVS-diastole: 10 mmIVS-systole: 15 mmLVPW diastole: 9 mmLVPW systole: 17 | | mmLV diameter-diastole: 49 mmLV diameter-systole: 30 mmFractional shortenin | | %PFV aortic valve: m/sMPG mitral valve: mmHgPFV TR jet: 1.9 m/Ibrahima/RV PP.4 | | mmHgLA volume: 30 mLLA index: 18 mL/c9Vzmlro Inflow DT: 262 msIVRT: 75 msValsalva: | | NegativePWDTI S wave: 8.7 cm/sPWDTI E wave: 9.0 cm/sPWDTI A wave: 11.5 cm/sE/A Ratio: | | 0.783E/E Ratio: 8.95Signed by: Jared Mcdonough MD [facility] 01/14/2014 8:40 | | Telegraph Inspector: Charmaine Ibarra RDMS | | | | | |IMPRESSIONS: | |1. Normal left ventricular size, wall thickness and motion. Preserved left ventricular sy stolic function. LVEF is 65%. | |2. Grade 1 left ventricular diastolic dysfunction. | |3. Trace mitral valve regurgitation. | |4. Trace tricuspid valve the patient. | |5. Normal right-sided pressure. | |6. Normal IVC with normal respiratory collapse. | |7. No pericardial effusion noted. | | | | | | | |Measurements: | |Height:5'2" | |Weight: 151lbs | |Aortic root: 34 mm | |Aortic cusp sep: 18 mm | |LA: 32 mm | |IVS-diastole: 10 mm | |IVS-systole: 15 mm | |LVPW diastole: 9 mm | |LVPW systole: 17 mm | |LV diameter-diastole: 49 mm | |LV diameter-systole: 30 mm | |Fractional shortenin % | |PFV aortic valve: m/s | |MPG mitral valve: mmHg | |PFV TR jet: 1.9 m/s | |RA/RV PP.4 mmHg | |LA volume: 30 mL | |LA index: 18 mL/m2 | |Mitral Inflow DT: 262 ms | |IVRT: 75 ms | |Valsalva: Negative | |PWDTI S wave: 8.7 cm/s | |PWDTI E wave: 9.0 cm/s | |PWDTI A wave: 11.5 cm/s | |E/A Ratio: 0.783 | |E/E Ratio: 8.95 | | | | | | | | | |Signed by: Jared Mcdonough MD [facility] | | 01/14/2014 8:40 | | | | | |Telegraph Inspector: Charmaine Ibarra RDMS | + + + + + + + | Performing | Address | City/State/Zipcode | Phone Number | | Organization | | | | + + + + + | [facility] | [address] | [place] | [phone] | | [facility] | | [address] | | | - IMAGING | | | | + + + + + ECG - EXTERNAL SCAN (01/11/2014 12:00 AM PST) + + + | Narrative | Performed At | + + + | Ordered by an | | | unspecified provider. | | + + + + + | Transcriptions | + + | Rolando Pozo - 01/11/2014 12:00 AM PST | + + documented in this encounter Visit Diagnoses + + | Diagnosis | + + | Other chest pain - Primary | + + | Palpitation Palpitations | + + | Tachycardia Tachycardia, unspecified | + + | Pericarditis Unspecified disease of pericardium | + + documented in this encounter
--- OUTSIDE RECORDS SUMMARY | ~2019-09-27 | XMS | Encounter Summary ---
Demographics + + + | Address | [address] | | | [place] [address] | + + + | Home Phone | | + + + | Preferred Language | Unknown | + + + | Marital Status | Single | + + + | Hindu Affiliation | 1041 | + + + | Race | Unknown | + + + | Ethnic Group | Unknown | + + + Author + + + | Author | [facility] | | | and [place] | + + + | Organization | [facility] | | [...] Providers + +------+ + | Care Director Corporate Communications Name | Role | Phone | + [...] Closed | | Radiology | Diagnoses | [place], | [facility] | | | | | Tachycardia | MD Jared | [address] | | | | | Procedures | [address] | [place], | | | | | ECHO | [address] | [place] | | | | | Complete | [place], | [address] | | | | | | [place] [address] | Phone: | | | | | | Phone: | [phone] | | | | | | [phone] | Fax: | | | | | | Fax: | [phone] | | | | | | [phone] | | +--------+--------+ + + + + Reason for Visit + + + | Reason | Comments | + + + | Establish Care | | + + + | Tachycardia | | + + + Evaluate & Treat (Routine) +--------+--------+ + + + + | Status | Reason | Specialty | Diagnoses / | Referred By | Referred To | | | | | Procedures | Contact | Contact | +--------+--------+ + + + + | Closed | | Cardiology | Diagnoses | Jo Ann, | Sharonda, | | | | | | DO Juan | MD Jared | | | | | Tachycardia, | [address] | [address] | | | | | unspecified | [place] | [address] | | | | | HIGH PULSE | [place], [place] | [place], | | | | | - 2ND DX | [address] | [place] [address] | | | | | Procedures | Phone: | Phone: | | | | | [place] OFFICE | [phone] | [phone] | | | | | OUTPATIENT | Fax: | Fax: | | | | | VISIT 25 | [phone] | [phone] | | | | | MINUTES | | | +--------+--------+ + + + + Encounter Details +--------+ + + + + | Date | Type | Department | Care Team | Description | +--------+ + + + + | 08/12/ | Off-Site | [facility] [place] | DanielmosheedgardoJared, | Tachycardia (Primary | | 2013 | Visit | CARDIOLOGY [address] | MD [address] | Dx) | | | | [address] [place], | [place], | | | | | [place] [address] | [place] [address] | | | | | [phone] | [phone] | | | | | | | [...] + | Blood Pressure | 80/58 | 08/12/2013 9:21 AM | right arm | | | | PDT | | + + + + + | Pulse | 72 | 08/12/2013 9:15 AM | regular | | | | PDT | | + + + + + | Temperature | - | - | | + + + + + | Respiratory Rate | 16 | 08/12/2013 9:15 AM | | | | | PDT | | + + + + + | Oxygen Saturation | - | - | | + + + + + | Inhaled Oxygen | - | - | | | Concentration | | | | + + + + + | Weight | 64.4 kg (142 lb) | 08/12/2013 9:15 AM | | | | | PDT | | + + + + + | Height | 157.5 cm (5' 2") | 08/12/2013 9:15 AM | | | | | PDT | | + + + + + | Body Mass Index | 25.97 | 08/12/2013 9:15 AM | | | | | PDT | | + + + + + documented in this encounter Progress Notes Jared Mcdonough MD - 08/12/2013 9:31 AM PDTFormatting of this note might be different f rom the original. PATIENT NAME: Rosario Malik : 1965: AGE: 48 y.o. REFERRED BY: Juan Cherry PRIMARY CARE: Juan Cherry DO NEW PATIENT OFFICE VISIT Date of Service: 08/12/2013 HISTORY OF PRESENT ILLNESS: Rosario Malik is a 48 y.o. female with a history of emphysema, hypothyroidism. She is being seen today for follow up hypertension and tachycardia. Patient is working full-time as a [employer] at [employer] and is in a process to retire in a week because of the severe emphysema. She has been in her usual state of healt h until about months ago when she started to notice the fluctuation of her pulses. She stat ed her heart rate can go up to 130 per minute while she was sitting in a chair doing nothing . She felt heart palpitations that was associated with dizziness and lightheadedness. He d enied any chest pain. She can be out of breath on him exertion which she attributes to hue re COPD. He has no ankle leg swelling. CURRENT PROBLEMS Patient Active Problem List Diagnosis Hypothyroidism Posttraumatic stress disorder Anxiety disorder BIPOLAR DISORDER UNSPECIFIED Fibromyalgia Insomnia Central sleep apnea COPD (chronic obstructive pulmonary disease) ([facility]) Healthcare maintenance Preventative health care GARRY (obstructive sleep apnea) Multiple personality disorder GERD (gastroesophageal reflux disease) Diverticulosis Insomnia Sprain of chest wall Benign neoplasm of pituitary gland and craniopharyngeal duct (pouch) ([facility]) Status post total hysterectomy Irritable colon Hypoxemia ([facility]) Allergic rhinitis Tachycardia MEDICAL, SURGICAL, AND PERSONAL HISTORY Past Surgical History Procedure Date Hammertoe repair right sided Hiatal hernia repair Hiatal hernia Kirk and bso Ovarian cysts, not cancer Colonoscopy 03/2010 Colonoscopy 1995 [facility] Family History Problem Relation Age of Onset Asthma Father Other (See Comment) Father hemachromatosis Thyroid disease Mother Asthma Sister Diabetes Paternal Aunt Emphysema Maternal Grandmother Cancer Maternal Grandmother Lung Diabetes Other Maternal Great Grandfather Heart disease Other Paternal side of family Other (See Comment) Father Does not know his history well Family Status Relation Status Age Father Alive Mother Alive Sister Alive Daughter Alive History Social History Marital Status: Single Spouse Name: N/A Number of Children: 1 Years of Education: 13 Occupational History [employer] Social History Main Topics Smoking status: Former Smoker -- 0.5 packs/day for 30 years Quit date: 03/27/2013 Smokeless tobacco: Never Used Comment: denies any second hand smoke exposure Alcohol Use: No Drug Use: No Comment: perviously used marijuana and speed in high school. Last marijuana 2009 Sexually Active: None Other Topics Concern None Social History Narrative Exercise:Caffeine:Living situation: Poor relationship [...] obstructive pulmonary disease. No acute cardiopulmonary abnormality. CURRENT MEDICATIONS Outpatient Encounter Prescriptions as of 08/12/2013 Medication Sig Dispense Refill ADVAIR DISKUS 500-50 MCG/DOSE diskus inhaler INHALE 1 PUFF BY MOUTH TWICE DAILY 60 eac h 5 albuterol (PROAIR HFA) 90 mcg/puff inhaler Inhale 2 puffs into the lungs every 6 hours as needed for Wheezing or Shortness of Breath. 1 Inhaler 5 COLLAGEN PO Take by mouth 3 times daily. DULoxetine (CYMBALTA) 60 MG capsule Take one by mouth daily gabapentin (NEURONTIN) 800 MG tablet Take 800 mg by mouth 3 times daily. ketorolac (TORADOL) 10 MG tablet Take 10 mg by mouth every 6 hours as needed. levothyroxine (SYNTHROID, LEVOTHROID) 75 MCG tablet Take 75 mcg by mouth every morning (before breakfast). Multiple Vitamins-Minerals (MULTIVITAMIN PO) Take by mouth Daily. omeprazole (PRILOSEC) 20 mg capsule Take 20 mg by mouth Daily as needed. ondansetron (ZOFRAN ODT) 4 mg disintegrating tablet Take 4 mg by mouth every 4 hours as needed. Respiratory Therapy Supplies MISC Incentive spirometer. Please provide instructions in use. Dx: 848.8 MADELEINE: 3 months 1 each 99 Respiratory Therapy Supplies MISC Please provide patient with necessary CPAP supplies ( she did not specify, okay to send order as appropriate) Diagnosis Code(s)327.23 . Length of Need 99 months. Please send order to [facility]. 1 each 0 Respiratory Therapy Supplies MISC Change CPAP back to 11-14 cm H2O. All necessary suppl ies. No oxygen bleed in. Diagnosis Code(s)327.23. Length of Need: Lifetime. Please send orde r to [facility]. This is not a new order, just a change in settings. 1 each 99 roflumilast (DALIRESP) 500 mcg tablet Take 1 tablet by mouth Daily. 30 tablet 11 SPIRIVA HANDIHALER 18 MCG inhalation capsule INHALE CONTENTS OF ONE CAPSULE ONCE DAILY USING HANDIHALER 30 capsule 0 traMADol (ULTRAM) 50 mg tablet Take 50 mg by mouth 4 times daily. ziprasidone (GEODON) 80 MG capsule Take 80 mg by mouth 2 times daily. ALLERGIES Allergies Allergen Reactions Doxycycline Hives Erythromycin Base Other (See Comments) Bloating and swelling Food Meperidine Nsaids Hives Onion Extract Pork Allergy ROS Review of Systems Constitutional: Positive for chills, weight loss, malaise/fatigue and diaphoresis. Negative for fever. HENT: Positive for congestion and neck pain. Negative for hearing loss, nosebleeds and tinn itus. Eyes: Positive for blurred vision. Negative for double vision. Respiratory: Positive for cough, shortness of breath and wheezing. Negative for stridor. Cardiovascular: Positive for orthopnea. Negative for chest pain, palpitations, claudication , leg swelling and PND. Gastrointestinal: Positive for heartburn, nausea, diarrhea and constipation. Negative for v omiting, abdominal pain, blood in stool and melena. Genitourinary: Positive for frequency. Negative for dysuria, urgency, hematuria and flank p ain. Musculoskeletal: Positive for myalgias, back pain and joint pain. Negative for falls. Skin: Positive for itching. Negative for rash. Neurological: Positive for dizziness, tingling, tremors, weakness and headaches. Negative f or seizures and loss of consciousness. Endo/Heme/Allergies: Positive for environmental allergies and polydipsia. Bruises/bleeds ea sily. Psychiatric/Behavioral: Positive for memory loss. The patient is nervous/anxious and has in somnia. OBJECTIVE: PHYSICAL EXAM BP 80/58 | Pulse 72 | Resp 16 | Ht 1.575 m (5' 2") | Wt 64.411 kg (142 lb) | BMI 25.97 kg/m 2 Physical Exam Constitutional: She appears [...] a depressed mood. ECG: Sinus rhythm, normal EKG, hypertension of 80 beats per minute. LAB RESULTS: LAB RESULTS: LIPID No results found for this basename: chol, trig, ldlcalc, hdl, ldl, calculated, cholhdl, ldl ex, hdlex, trigex, cholex CHEMISTRY Lab Results Component Value Date GLU 152* 07/14/2013 NA 140 07/14/2013 K 3.2* 07/14/2013 CL 107 07/14/2013 CO2 25 07/14/2013 CALCIUM 9.6 07/14/2013 ALKPHOS 72 04/12/2013 ALKPHOS 72 04/12/2013 AST 28 04/12/2013 AST 28 04/12/2013 ALT 26 04/12/2013 ALT 26 04/12/2013 BILITOT 0.3 04/12/2013 BILITOT 0.3 04/12/2013 CREA 0.76 07/14/2013 BUN 9 07/14/2013 EGFR >60 03/22/2013 HEMATOLOGY Lab Results Component Value Date WBC 13.3* 07/14/2013 HGB 14.2 07/14/2013 HCT 42.9 07/14/2013 PLT 343 07/14/2013 I reviewed records from [facility] for office visit on 08/02/13. ASSESSMENT: 1. Palpitation associated with tachyarrhythmia A. She has been in her usual state of health until about months ago when she started to no analisa the fluctuation of her pulses. She stated her heart rate can go up to 130 per minute w hile she was sitting in a chair doing nothing. Today, patient is doing well from cardiac standpoint. There is no signs and symptoms of o vert congestive heart failure. She is in a class II of [place] [employer] functiona l class. There is no fluid retention on physical examination. 2. Emphysema 3. Hypothyroidism PLAN: 1. Order to 48 hour Holter monitor to assess potential arrhythmia associated with palpitati ons. 2. Echocardiogram is warranted to assess cardiac structure as a workup of palpitation. 3. Followup in 2 weeks. Portions of this report were transcribed using voice recognition software. Every effort wa s made to ensure accuracy; however, inadvertent computerized alcohol law enforcement agent errors may be pre sent. Electronically signed by: Jared Mcdonough MD [facility] 08/12/2013 9:31 documented in this encounter Procedure Notes TRINITY WATKINS - 08/12/2013 12:00 AM PDTAssociated Order(s): ECG - EXTERNAL SCANBisi lacey signed by Rolando Pozo at 08/16/2013 10:27 AM PDTdocumented in this encounter Plan of [...] | | | | | | [place] [address] | | | | | | [phone] | | | | | | | | +--------+---------+ + + + | 03/01/ | Office | Pulmonology | Mukul Clark MD | | | 2020 | Visit | | [address] | | | | | | [place] | | | | | | [address] | | | | | | | | +--------+---------+ + + + + + +--------+ + + | Name | Type | Priori | Associated Diagnoses | Order Schedule | | | | ty | | | + + +--------+ + + | ECG 12 lead | ECG | Routin | Tachycardia | Ordered: 08/12/2013 | | | | e | | | + + +--------+ + + | ECHO Complete | Echocardiog | Routin | Tachycardia | Expected: 08/12/2013 | | | deepali | e | | (Approximate), | | | | | | Expires: 08/12/2014 | + + +--------+ + + | Holter monitor - 48 | ECG | Routin | Tachycardia | Expected: 08/12/2013 | | hour | | e | | (Approximate), | | | | | | Expires: 08/12/2014 | + + +--------+ + + documented as of this encounter Procedures + +--------+ + + + | Procedure Name | Priori | Date/Time | Associated Diagnosis | Comments | | | ty | | | | + +--------+ + + + | ECG - EXTERNAL SCAN | | 08/12/2013 | | Results for this | | | | 12:00 AM | | procedure are in the | | | | PDT | | results section. | + +--------+ + + + documented in this encounter Results ECG - EXTERNAL SCAN (08/12/2013 12:00 AM PDT) + + + | Narrative | Performed At | + + + | Ordered by an | | | unspecified provider. | | + + + + + | Transcriptions | + + | Rolando Pozo - 08/12/2013 12:00 AM PDT | + + documented in this encounter Visit Diagnoses + + | Diagnosis | + + | Tachycardia - Primary Tachycardia, unspecified | + + documented in this encounter
--- OUTSIDE RECORDS SUMMARY | ~2019-09-27 | XMS | Encounter Summary ---
Demographics + + + | Address | [address] | | | [place] [address] | + + + | Home Phone | | + + + | Preferred Language | Unknown | + + + | Marital Status | Single | + + + | Bahai Affiliation | 1041 | + + + | Race | Unknown | + + + | Ethnic Group | Unknown | + + + Author + + + | Author | [facility] | | | and [place] | + + + | Organization | [facility] | | | [...] Team Providers + +------+ + | Care Nurse Obgyn Name | Role | Phone | + +------+ + PCP | Unavailable | + +------+ + Encounter Details +--------+ + + + + | Date | Type | Department | Care Team | Description | +--------+ + + + + | 02/27/ | Hospital | [facility] | Ozzy Delcid, | | | 2010 | Encounter | MED CTR XRAY [address] | [address] | | | | | [place] | [address] [place], | | | | | [place] [address] | [place] [address] | | | | | [phone] | [phone] | | | | | | | [...] [place] | | | | | | [address] | | | | | | | | +--------+---------+ + + + | 11/24/ | Office | Cardiology | Flores, | | | 2019 | Visit | | SINDHU Erickson [address] | | | | | | [place] | | | | | | [place] [address] | | | | | | [phone] | | | | | | | | +--------+---------+ + + + | 03/01/ | Office | Pulmonology | Mukul Clark MD | | | 2020 | Visit | | [address] | | | | | | [place] | | | | | | [address] | | | | | | | | +--------+---------+ + + + documented as of this encounter Visit Diagnoses Not on filedocumented in this encounter"
--- OUTSIDE RECORDS SUMMARY | ~2019-09-27 | XMS | Encounter Summary ---
Demographics + + + | Address | [address] | | | [place] [address] | + + + | Home Phone [...] Team Providers + +------+ + | Care Head Porter Name | Role | Phone | + +------+ + | Yong Cherry DO | PCP | | + +------+ + Reason for Visit + + + | Reason | Comments | + + + | Abdominal Pain | | + + + Encounter Details +--------+ + + + + | Date | Type | Department | Care Team | Description | +--------+ + + + + | 11/23/ | Emergency | [facility] | Tom Clarke, | Post-op pain | | 2016 | | MED CTR EMERGENCY | MD [address] | (Primary Dx) | | | | CENTER [address] | [place] | | | | | [place] | [address] | | | | | [address] | | | | | | [phone] | | | +--------+ + + + [...] + + + | Blood Pressure | 114/58 | 11/24/2015 5:48 PM | | | | | PDT | | + + + + + | Pulse | 67 | 11/24/2015 5:48 PM | | | | | PDT | | + + + + + | Temperature | 36.4 C (97.6 F) | 11/24/2015 5:48 PM | | | | | PDT | | + + + + + | Respiratory Rate | 19 | 11/24/2015 5:48 PM | | | | | PDT | | + + + + + | Oxygen Saturation | 94% | 11/24/2015 5:48 PM | | | | | PDT | | + + + + + | Inhaled Oxygen | - | - | | | Concentration | | | | + + + + + | Weight | 77.6 kg (171 lb) | 11/24/2015 4:15 PM | | | | | PDT | | + + + + + | Height | 157.5 cm (5' 2") | 11/24/2015 4:15 PM | | | | | PDT | | + + + + + | Body Mass Index | 31.28 | 11/24/2015 4:15 PM | | | | | PDT [...] documented as of this encounter Discharge Instructions AttachmentsThe following attachments cannot be sent through Care Everywhere.PAIN MANAGEMENT AFTER SURGERY (IRISH)documented in this encounter Medications at Time of [...] | | | | | order to [facility]. | | | | | + + [...] | | | | | | | [facility]. | | | | [...] | | | | | | | ([facility]) | | | | | [...] | 0 | 10/13/19 | | | [id number]-[id number]-[id number] | mouth as needed. | | | 16 | 7 | | -Cod [id number] MG | | | | | | [...] +---------+ + + | hydrOXYzine | Take 25 mg by mouth. | | 0 | 11/15/19 | | | hydrochloride | | | | 16 | 6 | | (ATARAX) 25 mg | | [...] + documented as of this encounter ED Tom Reilly MD - 11/24/2015 5:42 PM PDTDictated Tom Clarke MD 11/24/15 1742 adha Clarke MD - 11/24/2015 5:40 PM PDT [address] [address] EMERGENCY ROOM REPORT TOM CLARKE MD Patient: JADYN SCHMITZ Admitting: MR #: [id number] LOC: PT TYPE: Adm Date: 11/24/2015 : 1965 HISTORY OF PRESENT ILLNESS: Jadyn is a 50-year-old female who had a bladder biopsy a couple of days ago. Since that time, she has been having a lot of abdominal pain and pain with urination. She says that she was taking hydrocodone, but it did not help. She came t o the ER yesterday and was given a prescription for Percocet. She went to fill it, but sa id that her insurance does not cover Percocet, so she came back to the ER to try to get a d ifferent prescription. She has had no fever, cough, chills, sweats, or other associated sy mptoms. She states she has no complaints other than just needs something else for pain. S he tried to contact her urologist but was unable to. PAST MEDICAL HISTORY: Significant for hypothyroidism, diverticulitis, depression, GERD, f ibromyalgia, adrenal insufficiency, emphysema. SOCIAL HISTORY: Used to smoke, no longer does. REVIEW OF SYSTEMS: All systems reviewed were negative except as noted in HPI. PHYSICAL EXAMINATION: GENERAL: This is a 50-year-old female in no apparent distress. VITAL SIGNS: HEENT: Pupils equally round and reactive to light. Mucous membranes are moist. Nasal pa ssages are clear. Trachea is midline. CHEST: Lungs are clear to auscultation bilaterally. No rales, no wheezes. CARDIOVASCULAR: Rate and rhythm is regular. ABDOMEN: Nondistended. EXTREMITIES: No edema. ASSESSMENT: This is a 50-year-old female here for postoperative pain. She has no evidence of infection. She was given a prescription for Dilaudid and told to follow up with her do ctor for pain medication needs. DIAGNOSIS: Postoperative pain. DISPOSITION: Home. TOM CLARKE MD Dictated by TOM CLARKE MD 11/24/2015 17:40:14 Transcribed on 11/25/2015 08:33:55 by roseline job# [id number] Confirmation #: [id number] cc: YONG AMANDA DO documented in this encounter Miscellaneous Notes ED Triage Notes - Kade Rodriguez RN - 11/24/2015 4:14 PM PDT2 days ago bladder bx and ledezma s spotting and significant pain since. Only has one Percocet remaining RX not covered by insurance. Hydrocodone not effective. Azo not effective. Urologist not able to f/u at this time. documented in this en counter Plan of Treatment +--------+---------+ + + + [...] | | | | | | [place] [address] | | | | | | [phone] | | | | | | | | +--------+---------+ + + + | 03/01/ | Office | Pulmonology | Mukul Clark MD | | | 2020 | Visit | | [address] | | | | | | [place] | | | | | | [address] | | | | | | | | +--------+---------+ + + + + +------+--------+ + + | Name | Type | Priori | Associated Diagnoses | Date/Time | | | | ty | | | + +------+--------+ + + | ED INFORMATION | BALWINDER | Routin | | 11/24/2015 3:32 PM | | EXCHANGE | | e | | PDT | + +------+--------+ + + documented as of this encounter Procedures + +--------+ + + + | Procedure Name | Priori | Date/Time | Associated Diagnosis | Comments | | | ty | | | | + +--------+ + + + | ED INFORMATION | Routin | 11/24/2015 | | | | EXCHANGE | e | 3:32 PM | | | | | | PDT | | | + +--------+ + + + documented in this encounter Visit Diagnoses + + | Diagnosis | + + | Post-op pain - Primary Other acute postoperative pain | + + documented in this encounter
--- OUTSIDE RECORDS SUMMARY | ~2019-09-27 | XMS | Encounter Summary ---
Demographics + + + | Address | [address] | | | [place] [address] | + + + | Home Phone [...] Team Providers + +------+ + | Care Machinist Apprentice Wood Name | Role | Phone | + +------+ + | Juan Cherry DO | PCP | | + +------+ + Reason for Visit + + + | Reason | Comments | + + + | Chest Injury | | + + + Encounter Details +--------+---------+ + + + | Date | Type | Department | Care Team | Description | +--------+---------+ + + + | 05/28/ | Office | [facility] [place] | Brian Miranda | Sprain of chest | | 2013 | Visit | [facility] | MD Ozzy Need | abigail garcia | | | | [place] [address] | updated address | encounter (Primary | | | | [address] [place] | | Dx); Place of | | | | [place] | | occurrence, | | | | [address] | | industrial places | | | | [phone] | | and premises | +--------+---------+ + + + Social History [...] + + + | Blood Pressure | 82/60 | 05/28/2013 8:18 AM | | | | | PDT | | + + + + + | Pulse | 134 | 05/28/2013 8:18 AM | | | | | PDT | | + + + + + | Temperature | 36.5 C (97.7 F) | 05/28/2013 8:18 AM | | | | | PDT | | + + + + + | Respiratory Rate | 24 | 05/28/2013 8:18 AM | | | | | PDT | | + + + + + | Oxygen Saturation | - | - | | + + + + + | Inhaled Oxygen | - | - | | | Concentration | | | | + + + + + | Weight | 65.3 kg (144 lb) | 05/28/2013 8:18 AM | | | | | PDT | | + + + + + | Height | 157.5 cm (5' 2") | 05/28/2013 8:18 AM | | | | | PDT | | + + + + + | Body Mass Index | 26.34 | 05/28/2013 8:18 AM | | | | | PDT | | + + + + + documented in this encounter Progress Notes Brian Miranda MD - 05/28/2013 8:40 AM PDTClaim number: [id number] Date of injury: 04/05/2013 Employer: [employer] Guarantor: [employer] Complaint: Chest wall sprain, scheduled followup Subjective: Injured worker is 48 here for a scheduled followup on her management of chest w all strain. He is doing quite well. Has responded well to her conservative treatment at th is time and she believes that she can return to regular work responsibilities. There've bee n no new developments of symptomatology since our last evaluation. She has been having some difficulty with asthma/COPD, and she was referred to her primary care provider or urgent ca re for evaluation of this condition. Objective: General: She is not feeling well but in no acute distress. Vital signs as recor ded by the medical office technology instructor was a blood pressure of 82/60 and a pulse of 134 I retook the p ulse and it was approximately 90 her respiratory rate was 24. Chest wall: Normal to inspection, no acute tenderness, no increased pain with respiratory e ffort. Imaging/diagnostics: None indicated for purposes of our evaluation for the work-related con dition. Pending interventions: Continued conservative care with gradual transition to normal activi ties, released to regular work, recheck in 2 weeks to ensure at MMI status. Assessment: Chest wall sprain, improving with conservative treatment Plan: See pending interventions above, followup in 2 weeks or when necessary problems. It should be noted that she elected to be seen in the urgent care area, and I had her registere d to be seen and alert at the urgent care staff. Employment: Regular work Restrictions: With regards to the work-related condition, she is released to regular work. Impairment undetermined, she has not yet deemed MMI status but anticipated evaluation of th is at followup in 2 weeks. She voiced understanding and agreement. documented in this encounter Plan of Treatment [...] | | | | | | [place] [address] | | | | | | [phone] | | | | | | | | +--------+---------+ + + + | 03/01/ | Office | Pulmonology | Mukul Clark MD | | | 2020 | Visit | | [address] | | | | | | [place] | | | | | | [address] | | | | | | | | +--------+---------+ + + + documented as of this encounter Visit Diagnoses + + | Diagnosis | + + | Sprain of chest wall, subsequent encounter - Primary | + + | Place of occurrence, industrial places and premises | + + documented in this encounter
--- OUTSIDE RECORDS SUMMARY | ~2019-09-27 | XMS | Encounter Summary ---
Demographics + + + | Address | [address] | | | [place] [address] | + + + | Home Phone | | + + + | Preferred Language | Unknown | + + + | Marital Status | Single | + + + | Congregation Affiliation | [id number] | + + + [...] Team Providers + +------+ + | Care Instructional Services Specialist Name | Role | Phone | + +------+ + | Juan Cherry DO | PCP | | + +------+ + Reason for Visit + +--------+ + | Reason | Onset | Comments | | | Date | | + +--------+ + | Appointment | 09/16/ | CANCELLING APPOINTMENT | | | 2014 | | + +--------+ + Encounter Details +--------+ + + + + | Date | Type | Department | Care Team | Description | +--------+ + + + + | 09/16/ | Telephone | [facility] | Kevin Sandoval, | Appointment | | 2014 | | PULMONARY [address] | MD [address] | (CANCELLING | | | | [place], | [place], [place] | APPOINTMENT) | | | | [place] [address] | [address] | | | | | [phone] | | | +--------+ + + + [...] this encounter Miscellaneous Notes Telephone Encounter - Jia Romano - 09/16/2014 11:28 AM PDTPatient was scheduled to see Dr. Sandoval 09-16-14 for a 1 week follow up. Patient called the morning of the appoin tment to make a late cancel. Patient stated that she is not seeing a physician at [facility] and will not be rescheduling. Patients appointment has been cancelled and not future appointmen ts will be scheduled at this time.Electronically signed by Jia Romano at 11:31 AM PDTdocumented in this encounter Plan of Treatment +--------+---------+ + + + | Date | Type | Specialty | Care Team | Description | +--------+---------+ + + + | 09/27/ | Office | Sleep Medicine | Meghan Garcia MD | | | 2019 | Visit | | [address] [facility] | | | | | | [place] | | | | | | [address] | | | | | | | | +--------+---------+ + + + | 11/24/ | Office | Cardiology | Flores, | | | 2019 | Visit | | SINDHU Erickson [address] | | | | | | [place], | | | | | | [place] [address] | | | | | | [phone] | | | | | | | | +--------+---------+ + + + | 03/01/ | Office | Pulmonology | Mukul Clark MD | | | 2020 | Visit | | [address] | | | | | | [place] | | | | | | [phone] | | | | | | | | +--------+---------+ + + + documented as of this encounter Visit Diagnoses Not on filedocumented in this encounter"
--- OUTSIDE RECORDS SUMMARY | ~2019-09-27 | XMS | Encounter Summary ---
Demographics + + + | Address | [address] | | | [place] [address] | + + + | Home Phone [...] Providers + +------+ + | Care Hand Upper And Bottom Lacer Name | Role | Phone | + [...] Description | +--------+--------+ + + + | 07/23/ | Refill | [facility] | Andriy Weber | Medication Refill | | 2017 | | [address] | MD [address] | | | | | [place] | [place] | | | | | [address] | [place] [address] | | | | | [phone] | [phone] | | | | | | | [...] | | | | | | [place] [address] | | | | | | [phone] | | | | | | | [...]
--- OUTSIDE RECORDS SUMMARY | ~2019-09-27 | XMS | Encounter Summary ---
Demographics + + + | Address | [address] | | | [place] [address] | + + + | Home Phone [...] + | Author | [facility] | | | and [place] | + + + | Organization | [facility] | | [...] Team Providers + +------+ + | Care Plate Glass Polisher Name | Role | Phone | + +------+ + | Juan Cherry DO | PCP | | + +------+ + Reason for Visit +--------+--------+ + | Reason | Onset | Comments | | | Date | | +--------+--------+ + | Other | 05/24/ | increased symptoms | | | 2014 | | +--------+--------+ + Encounter Details +--------+ + + + + | Date | Type | Department | Care Team | Description | +--------+ + + + + | 05/24/ | Telephone | [facility] [place] | Offenstein, | Other (increased | | 2013 | | PULMONARY [address] | Loreta Alonso MD | symptoms) | | | | [place], | | | | | | [place] [address] | | | | | | [phone] | | | +--------+ + + + [...] Telephone Encounter - Marilyn Osborne RN - 05/24/2013 12:40 PM PDTThis message was relay ed to Rosario. She voices understanding. Called [facility] and reordered Daliresp.Bisi lacey signed by Marilyn Osborne RN at 05/24/2013 12:44 PM PDTTelephone Encounter - Loreta Lux MD - 05/24/2013 11:16 AM PDTWe discussed her picking up the Daliresp at her last appt. She needs to follow through on her prescriptions. She should start this medicatio n. She can take another prednisone taper, but if she does not follow through on her halfway prescriptions, I will not provide any more assistance. We have already documented that she i s filling her medications only 50% of the time. elephone Encounter - Marilyn Osborne RN - 05/24/2013 10: 21 AM PDTGretchen called stating that for the past 3 days she's had attacks of increased krishna rtness of breath, wheeze and cough. Her cough is non productive. No temp. She went to ER las t night and was given a DuoNeb treatment and a steroid injection. Rosario used her nebulize r twice during the night and states that she has use it every hour since 6AM. A prednisone t aper starting at 40 mg and decreasing by 10 mg every 3 days was called into her pharmacy. Ad ivsed her to cigar packer and picker the Prednisone soon and start it. Rosario states that she regularly ta kes Spiriva and Advair. Asked about the Daliresp and she states that she did not know anythi ng about it. Checked with [facility] and the pharmacist said that it was approved by her ins urance and was filled for her--she never picked it up.She is asking if she should take any a dditional medication? Tdocumented in this encounter Plan of Treatment +--------+---------+ [...] | | | | | | [place] [address] | | | | | | [phone] | | | | | | | | +--------+---------+ + + + | 03/01/ | Office | Pulmonology | Mukul Clark MD | | | 2020 | Visit | | [address] | | | | | | [place] | | | | | | [address] | | | | | | | | +--------+---------+ + + + documented as of this encounter Visit Diagnoses Not on filedocumented in this encounter"
--- OUTSIDE RECORDS SUMMARY | ~2019-09-27 | XMS | Encounter Summary ---
Demographics + + + | Address | [address] | | | [place] [address] | + + + | Home Phone [...] Providers + +------+ + | Care Sales Floor Team Leader Name | Role | Phone | + +------+ + PCP | Unavailable | + +------+ + Encounter Details +--------+ + + + + | Date | Type | Department | Care Team | Description | +--------+ + + + + | 05/30/ | [facility] | [facility] | | | | 2009 - | Encounter | MED CTR OP REHAB | | | | | | [address] | | | | 06/23/ | | [place] [address] | | | | 2009 | | [phone] | | | +--------+ + + + [...] | | | | | | [place] [address] | | | | | | [phone] | | | | | | | | +--------+---------+ + + + | 03/01/ | Office | Pulmonology | Mukul Clark MD | | | 2020 | Visit | | [address] | | | | | | [place] | | | | | | [address] | | | | | | | | +--------+---------+ + + + documented as of this encounter Visit Diagnoses Not on filedocumented in this encounter"
--- OUTSIDE RECORDS SUMMARY | ~2019-09-27 | XMS | Encounter Summary ---
Demographics + + + | Address | [address] | | | [place] [address] | + + + | Home Phone | | + + + | Preferred Language | Unknown | + + + | Marital Status | Single | + + + | [employer] Affiliation | 1041 | + + + [...] Team Providers + +------+ + | Care Dental Professional Name | Role | Phone | + +------+ + | Juan Cherry DO | PCP | | + +------+ + Encounter Details +--------+ + + + + | Date | Type | Department | Care Team | Description | +--------+ + + + + | 02/14/ | Documentati | [facility] | Kevin Weber, | | | 2013 | on | MED CTR PT [facility] | PT | | | | | [address] [place] | | | | | | [place] [address] | | | | | | [phone] | | | +--------+ + + + [...] documented as of this encounter Progress Notes Weber, Kevin J, PT - 02/14/2014 1:[address] [facility] [address] [place] [place] [address] Physical Therapy Discharge Note Date: 02/14/2014 Patient Information Patient Name: Rosario Malik Date of : 1965 Age: 49 y.o. Referring Provider: Srinath Miranda MD Total Number of Visits Completed: 3 Total Cancellations: 2 Total No Shows: 0 [...] discharge. Electronically signed by: Kevin Weber, PT, 02/14/2014 13:18 Patient Name: Rosario Malik/: 1965/ documented in this encounter Plan of Treatment +--------+---------+ + + + | Date | Type | Specialty | Care Team | Description | +--------+---------+ + + + | 09/27/ | Office | Sleep Medicine | Meghan Garcia MD | | | 2020 | Visit | | [address] | | | | | | [place] | | | | | | [address] | | | | | | | | +--------+---------+ + + + | 11/24/ | Office | Cardiology | [place], | | | 2019 | Visit | | SINDHU Erickson [address] | | | | | | [place], | | | | | | [place] [address] | | | | | | [phone] | | | | | | | | +--------+---------+ + + + | 03/01/ | Office | Pulmonology | Mukul Clark MD | | | 2020 | Visit | | [address] | | | | | | [place] | | | | | | [address] | | | | | | | | +--------+---------+ + + + documented as of this encounter Visit Diagnoses Not on filedocumented in this encounter"
--- OUTSIDE RECORDS SUMMARY | ~2019-09-27 | XMS | Encounter Summary ---
Demographics + + + | Address | [address] | | | [place] [address] | + + + | Home Phone [...] Team Providers + +------+ + | Care Lay Out Machine Operator Name | Role | Phone | + +------+ + | Juan Cherry DO | PCP | | + +------+ + Encounter Details +--------+ + + + + | Date | Type | Department | Care Team | Description | +--------+ + + + + | 09/09/ | Hospital | [facility] | Conversion | Pain | | 2015 | Encounter | CONVERSION [address] | Transaction, | | | | | [address] | Provider Unknown | | | | | [place], [place] | [phone] | | | | | [address] | | | | | | [phone] | | | +--------+ + + + [...] | | | | | order to [facility]. | | | | | + [...] | | | send order to [facility] | | | | | | | [facility]. | | | | | [...] | | | | | | | ([facility]) | | | | | [...] | | | | | | | ([facility]) | | | | | [...] [place] | | | | | | [address] | | | | | | | | +--------+---------+ + + + | 11/24/ | Office | Cardiology | [place], | | | 2019 | Visit | | SINDHU Erickson [address] | | | | | | [place] | | | | | | [place] [address] | | | | | | [phone] | | | | | | | | +--------+---------+ + + + | 03/01/ | Office | Pulmonology | Mukul Clark MD | | | 2020 | Visit | | [address] | | | | | | [place] | | | | | | [address] | | | | | | | | +--------+---------+ + + + documented as of this encounter Procedures + +--------+ + + + | Procedure Name | Priori | Date/Time | Associated Diagnosis | Comments | | | ty | | | | + +--------+ + + + | XR CHEST 2 VIEWS | Routin | 10/24/2011 | | Results for this | | | e | 12:50 AM | | procedure are in the | | | | PDT | | results section. | + +--------+ + + + documented in this encounter Results XR Chest 2 Vws (10/24/2011 12:50 AM PDT) + + | Specimen | [...]
--- OUTSIDE RECORDS SUMMARY | ~2019-09-27 | XMS | Encounter Summary ---
Demographics + + + | Address | [address] | | | [place] [address] | + + + | Home Phone [...] Team Providers + +------+ + | Care Algebra Teacher Name | Role | Phone | + +------+ + | Juan Cherry DO | PCP | | + +------+ + Reason for Visit + + + | Reason | Comments | + + + | Follow-up | | + + + | Palpitations | | + + + | Tachycardia | | + + + | Chest Pain | | + + + Encounter Details +--------+ + + + + | Date | Type | Department | Care Team | Description | +--------+ + + + + | 02/22/ | Off-Site | [facility] | [place], | Tachyarrhythmia | | 2013 | Visit | CARDIOLOGY [address] | SINDHU Erickson [address] | (Primary Dx); | | | | [place] [facility], | [place], | Palpitations; Other | | | | [place] [address] | [place] [address] | chest pain | | | | [phone] | [phone] | | | | | | | [...] + | Blood Pressure | 98/62 | 02/22/2014 10:02 AM | | | | | PST | | + + + + + | Pulse | 105 | 02/22/2014 10:02 AM | | | | | PST | | + + + + + | Temperature | - | - | | + + + + + | Respiratory Rate | 16 | 02/22/2014 10:02 AM | | | | | PST | | + + + + + | Oxygen Saturation | 93% | 02/22/2014 10:02 AM | | | | | PST | | + + + + + | Inhaled Oxygen | - | - | | | Concentration | | | | + + + + + | Weight | 69.9 kg (154 lb) | 02/22/2014 10:02 AM | | | | | PST | | + + + + + | Height | 157.5 cm (5' 2") | 02/22/2014 10:02 AM | | | | | PST | | + + + + + | Body Mass Index | 28.17 | 02/22/2014 10:02 AM | | | | | PST [...] this encounter Patient Instructions Patient Instructions Georgina Elizabeth ARNP - 02/22/2014 10:24 AM PST Schedule for angiogram Cardiac Catheterization You may have had angina, dizziness, or other symptoms of heart trouble. To help diagnose yo ur problem, your doctor may suggest having a cardiac catheterization. This common procedure is sometimes also used to treat a heart problem. Insertion sites may be in the groin or the arm. Before the Procedure Tell your doctor what medicines you take and about any allergies you have. Don t eat or drink anything after midnight, the night before the procedure. You'll likely be admitted to the hospital on the day of the procedure. Know that any hair on the skin where the catheter will be inserted may be removed. You m ay be given medication to relax before the procedure. During the Procedure You will receive a local anesthetic to prevent pain at the insertion site. The doctor inserts an introducing sheath into a blood vessel in your groin or arm. Through the sheath, a long, thin tube called a catheter is placed inside the artery and guided toward your heart. To perform different tests or check other parts of the heart, the doctor inserts a new c atheter or moves the catheter or x-ray machine. For some tests, a contrast dye is injected through the catheter. After the Procedure Your doctor or nurse will tell you how long to lie down and keep the insertion site stil l. If the insertion site was in your groin, you may need to lie down with your leg still fo r several hours. A nurse will check your blood pressure and the insertion site. You may be asked to drink fluid to help flush the contrast liquid out of your system. Have someone drive you home from the hospital. It s normal to find a small bruise or lump at the insertion site. These common side ef fects should disappear within a few weeks. When to Call Your Doctor Call your doctor right away if you have any of the following: Angina (chest pain). Pain, swelling, redness, bleeding, or drainage at the insertion site. Severe pain, coldness, or a bluish color in the leg or arm that held the catheter. Blood in your urine, black or tarry stools, or any other kind of bleeding. Fever over 101.0F. [id number] [employer]. [address] [place] [address]. All righ ts reserved. This information is not intended as a substitute for professional medical care. Always follow your healthcare professional's instructions. documented in this encounter Progress Notes Georgina Elizabeth ARNP - 02/22/2014 9:52 AM PSTFormatting of this note might be different f rom the original. PATIENT NAME: Rosario Malik : 1965: AGE: 49 y.o. PRIMARY CARE: Juan Cherry DO OUTPATIENT FOLLOW UP VISIT Date of Service: 02/22/2014 HISTORY OF PRESENT ILLNESS: Rosario Malik is a 49 y.o. female with a history of paroxysmal atrial tachycardia wi th palpitations, emphysema, hypothyroidism obstructive sleep apnea and nocturnal hypoxemia a nd bipolar disorder. She is being seen today for follow up chest pain. She was last seen 01/25/2014 at which time she was schedule for stress test. Since that ti me, she as been having daily chest pain at rest and while cleaning as well. Her chest pains are 2 and 3 times daily. She also has palpitations that "won't let me go to sleep at night because they're so bad". He denies any increase in shortness of breath, lightheadedness, d izziness or leg swelling. MEDICAL, SURGICAL, AND PERSONAL HISTORY [...] Tachycardia Palpitations Tachyarrhythmia Asthma Emphysema Migraine Pericarditis COPD exacerbation Chest pain CURRENT MEDICATIONS Current Outpatient Prescriptions Medication Sig [...] every morning (before breakfast). LORAZEPAM PO Take 2 mg by mouth nightly. Multiple Vitamins-Minerals (MULTIVITAMIN PO) Take by mouth Daily. omeprazole (PRILOSEC) 20 mg capsule Take 20 mg by mouth Daily. oxyCODONE 20 MG TABS Take 10 mg by mouth 2 times daily. predniSONE (DELTASONE) 10 mg tablet Take 10 mg by mouth Daily. Respiratory Therapy [place] [facility]irom[place]. Please provide instructions in use. Dx: 848.8 MADELEINE: 3 months 1 each 99 Respiratory Therapy Supplies MISC Please provide patient with necessary CPAP supplies ( she did not specify, okay to send order as appropriate) Diagnosis Code(s)327.23 . Length of Need 99 months. Please send order to [facility]. 1 each 0 Respiratory Therapy Supplies MISC Change CPAP back to 11-14 cm H2O. All necessary suppl ies. No oxygen bleed in. Diagnosis Code(s)327.23. Length of Need: Lifetime. Please send orde r to [facility]. This is not a new order, just a change in settings. 1 each 99 rizatriptan (MAXALT) 10 mg tablet Take 1 tablet by mouth as needed for Migraine. May re peat in 2 hours if needed 30 tablet 6 roflumilast (DALIRESP) 500 mcg tablet Take 1 tablet by mouth Daily. 30 tablet 11 SPIRIVA HANDIHALER 18 MCG inhalation capsule INHALE ONE CAPSULE BY MOUTH VIA HANDIHALER DAILY 30 capsule 0 traMADol (ULTRAM) 50 [...] shortness of breath. Cardiovascular: Positive for chest pain and palpitations. Negative for leg swelling. Neurological: Positive for dizziness and weakness. Lightheaded = No OBJECTIVE: PHYSICAL EXAM BP 98/62 | Pulse 105 | Resp 16 | Ht 1.575 m (5' 2") | Wt 69.854 kg (154 lb) | BMI 28.16 kg/ m2 | SpO2 93% Physical Exam Constitutional: She is oriented to [...] ECG: I personally reviewed EKG tracing from 02/22/2014 shows sinus tachycardia with 105 nazario ts per minute no acute ST-T changes. See scanned document for further interpretation. LAB [...] HGBEX 14.5 05/10/2013 I reviewed records from PCP for office visit on 02/11/2014. ASSESSMENT: 1. Atypical angina with abnormal stress test: A. Echocardiogram 01/14/2014, shows normal left ventricular size, wall thickness and gurmeet on, preserved left ventricular systolic function, LVEF is 65%, grade 1 left ventricular crews tolic dysfunction, trace mitral valve regurgitation, trace tricuspid valve the patient, norm al right-sided pressure, normal IVC with normal respiratory collapse, no pericardial effusio n noted. B. Stress Test 02/15/2014, is an abnormal exercise tetrofosmin myocardial perfusion imagin g study with a small size, reversible defect of a mild severity of the distal anteroseptal a nd apex, this suggests a very small size myocardial ischemia of a distal left anterior desce nding artery territories, normal left ventricular size, wall thickness and motion, preserved left ventricular systolic function, LVEF by gated SPECT is 66%, no symptoms during procedur e, occasional PVC s during procedure, exercise tolerance is normal for age. C. Today, patient continues to have atypical angina at rest and on exertion and with deep breathing. She continues to have severe fatigue although she is physically very inactive. Radha luna has baseline dyspnea from her COPD. She is in a class II-III of [facility] ation functional class. There is no signs and symptoms of overt congestive heart failure. Th ere are no fluid retention on physical examination. Patient is a candidate for angiogram fu rther stratify coronary artery disease in the presence of an abnormal stress test and atypic al angina. 2. Palpitation secondary to the paroxysmal atrial [...] and ventricular function don e at [facility]. LVEF 78%. C. Holter Monitor 08/16/13 Underlying [...] monitor is not available at this time. And she has not gone back to see Dr. Ding. 2. Emphysema/COPD 3. Hypothyroidism 4. Obstructive sleep apnea and nocturnal hypoxemia A. she is using CPAP machine and nighttime oxygen supplement. PLAN: 1. Schedule patient for heart catheterization to further evaluate and stratify coronary art boyd disease 2. Patient will follow up in 2-4 weeks after angiogram. Patient needs to go back to Dr. Alexandra khan to address supraventricular tachycardia. Patient is definitely symptomatic with tachy cardia and has baseline hypotension which would make using blocking agents very challenging. Ablation might be patient's best option. I, SINDHU Chester, saw this patient under the direct supervision of Jared Mcdonough MD Portions of this chart may have been created with [employer] voice recognition software. Occasi onal wrong-word or sound-alike substitutions may have occurred due to the inherent cárdenas itations of voice recognition software. Please read the chart carefully and recognize, using context, where these substitutions have occurred. documented in this encounter Miscellaneous Notes Addendum Note - Nilda Aceves RN - 02/25/2014 11:16 AM PST Addended by: NILDA ACEVES on: 02/25/2014 11:16 Modules accepted: Orders documented in this encounter Plan of Treatment [...] [place], | | | | | | [place] [address] | | | | | | [phone] | | | | | | | | +--------+---------+ + + + | 03/01/ | Office | Pulmonology | Mukul Clark MD | | | 2020 | Visit | | [address] | | | | | | [place] | | | | | | [address] | | | | | | | | +--------+---------+ + + + + +------+--------+ + + | Name | Type | Priori | Associated Diagnoses | Order Schedule | | | | ty | | | + +------+--------+ + + | ECG 12 lead | ECG | Routin | Tachyarrhythmia | Ordered: 02/22/2014 | | | | e | Other chest pain | | + +------+--------+ + + documented as of this encounter Results CV Adult Cardiac Cath Diag/PCI (02/28/2014 9:42 AM PST) + + | Specimen | + + | | + + + + + | Narrative | Performed At | + + + | Jared Mcdonough MD 02/28/2014 9:40 CARDIAC | [facility] | | CATHETERIZATION and CORONARY ANGIOGRAPHY PATIENT NAME/: | [facility] | | Rosario Malik, (1965) MEDICAL RECORD NUMBER: | [facility] | | [id number] DATE OF PROCEDURE: 02/28/2014 [employer] SYSTEM[employer] PROGRAMMER: | - IMAGING | | Jared Mcdonough [...] Malik, (1965) OF | | PROCEDURE: 02/28/2014PRIMARY BRANCH BANKER: Jared Mcdonough MD PROCEDURES | | PERFORMED:Coronary [...] ST. | [address] | [place] | [phone] | | [facility] | | [address] | | | - IMAGING | | | | + + + + + documented in this encounter Visit Diagnoses + + | Diagnosis | + + | Tachyarrhythmia - Primary Tachycardia, unspecified | + + | Palpitations | + + | Other chest pain | + + documented in this encounter
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
--- OUTSIDE RECORDS SUMMARY | ~2019-09-27 | XMS | Encounter Summary ---
Demographics + + + | Address | [address] | | | [place] [address] | + + + | Home Phone | | + + + | Preferred Language | Unknown | + + + | Marital Status | Single | + + + | Mu-Ism Affiliation | 1041 | + + + | Race | Unknown | + + + | Ethnic Group | Unknown | + + + Author + + + | Author | [facility] | | | and [place] | + + + | Organization | [facility] | | | and [...] Providers + +------+ + | Care Customer Services Coordinator Name | Role | Phone | [...] | with brief | [address] | [address] | | | | n | loss of | [address] | [place], | | | | | consciousnes | [place], | [place] [address] | | | | | s | [place] [address] | Phone: | | | | | Post-concuss | Phone: | [phone] | | | | | ion vertigo | [phone] | Fax: | | | | | [id number] | Fax: | [phone] | | | | | (ICD-10-CM) | [phone] | | | | | | - [...] | Concussion | Aaron Kim MD | Procurement Representative [address] | | | Required | | with brief | [address] | [place] | | | | | loss of | [address] | [place], [place] | | | | | consciousnes | [place], | [address] | | | | | s Word | [place] [address] | Phone: | | | | | finding | Phone: | [phone] | | | | | difficulty | [phone] | Fax: | | | | | [id number] | Fax: | [phone] | | | | | (ICD-10-CM) | [phone] | | | | | | - [...] Description | +--------+---------+ + + + | 04/11/ | Office | [facility] | Aaron Rodriguez, | Concussion with | | 2016 | Visit | PHYSIATRY [address] | [address] | brief loss of | | | | [address] | [place], [place] | consciousness | | | | [place], [place] | [address] | (Primary Dx); | | | | [address] | | Post-concussion | | | | [phone] | | headache; [place] | | | | | | finding difficulty; | | | | | | Post-concussion | | | | | | vertigo | +--------+---------+ + + + Social History [...] + + + | Blood Pressure | 97/46 | 04/11/2016 11:34 AM | | | | | PST | | + + + + + | Pulse | 78 | 04/11/2016 11:34 AM | | | | | PST | | + + + + + | Temperature | - | - | | + + + + + | Respiratory Rate | 18 | 04/11/2016 11:34 AM | | | | | PST | | + + + + + | Oxygen Saturation | - | - | | + + + + + | Inhaled Oxygen | - | - | | | Concentration | | | | + + + + + | Weight | 83.9 kg (185 lb) | 04/11/2016 11:34 AM | | | | | PST | | + + + + + | Height | 157.5 cm (5' 2") | 04/11/2016 11:34 AM | | | | | PST | | + + + + + | Body Mass Index | 33.84 | 04/11/2016 11:34 AM | | | | | PST [...] of this encounter Patient Instructions Patient Instructions Aaron Rodriguez MD - 04/11/2016 11:44 AM PSTContinue taking Trazodone at night. Avoid using the computer. If any activity makes you feel worse, stop and take a break. Talk to your doctor about reducing doses of gabapentin, geodon, atarax if possible. Physical therapy has been prescribed. Please participate in physical therapy. If you have not be contacted for an appointment with physical therapy within one week, please contact [facility]. Once you have completed physical therapy please continue the home exercise progr am as outline by physical therapy, indefinitely. Speech therapy has also been requested. Return to the clinic in 4 weeks. 1 1:45 AM PST documented in this encounter Progress Notes Aaron Rodriguez MD - 04/11/2016 12:43 PM PST [facility] PHYSIATRY [facility] [id number] OFFICE NOTE AARON RODRIGUEZ JR, MD Patient: JADYN SCHMITZ Admitting: MR #: [id number] LOC: PT TYPE: Adm Date: 04/11/2016 : 1965 PHYSICAL MEDICINE REHABILITATION PROGRESS NOTE DATE OF : 1965 PRIMARY CARE PROVIDER: Yong Cherry DO DATE OF SERVICE: 04/11/2016 PATIENT IDENTIFICATION: A 51-year-old female with mechanical fall, concussion, and brief loss of consciousness on 03/15/2016. HISTORY OF PRESENT ILLNESS: The patient was last seen by me 03/28/2016. She had a concuss ion 03/23/2016 after a trip and fall on her oxygen cord. When she was last seen, she was a sked to get plenty of mental and physical rest. She started medication trazodone. She ret urns to clinic today to review her symptoms. The patient indicates that she is still having headaches on a daily basis. Headaches are now becoming intermittent. Headaches are less intense. Headaches are still present, but t he majority of every day. She reports that when headaches are more severe, she might experi ence mild nausea. She reports that she has not had any vomiting in the last week. She co ntinues to feel balance problems and dizziness. She feels a bit unsteady when she walks. She reports that when she has worse headache she will have problems with visual focusing. She reports that her focus will go in and out. She denies any visual field loss. She den ies any spotty vision or flashes of vision. Overall, she continues to feel fatigued. She continues to have light and sound sensitivity. She denies being mentally foggy. She does r eport feeling mentally slowed down, with problems with concentration and memory. Emotional ly, she has found that she is more irritable and experiencing increased emotional lability . She reports that feelings of sadness and anxiety have gone away. Most specifically rega rding emotion, she reports that she has a laptop which she was using. She indicates that w hen she used the laptop shortly after this, she started to experience anger for no reason and would start yelling at people around her. When she stopped using the laptop, symptoms seemed to improve. A day later she tried using the laptop again with the same result, once again increasing symptoms of anger. When she stopped using the laptop, anger symptoms we nt away. For now, she agrees to discontinue use of laptop. She would prefer not to use an y other medications to control anger symptoms, especially knowing that the anger seems to b e primarily triggered by using a computer. Overall, she continues to have drowsiness. She indicates that she spends a normal amount of time in bed at night sleeping, probably at her normal amount of hours per night, however , she reports that she has continued difficulty sleeping throughout the night. She indicat es that she will wake up in the night and toss and turn. She has found that with light ph ysical activity she can have increased headache symptoms. She has found with cognitive acti vity including using her laptop that it increases her headache symptoms. She denies any ne w symptoms at this time. She indicates that she is disabled/retired. When she was last s een, she was asked to review her medications with her primary doctor to see if there is any medications that would inhibit neurologic recovery, that can be tapered down or discontinu ed. She did not talk to her primary doctor. She is fearful of discontinuing any medicatio ns. She is fearful that if she were to reduce medications that her fibromyalgia might be worse. By her report, she believes that if it takes her longer to get better, she would pr efer to continue current medications rather than discontinue them and have fibromyalgia sym ptoms flare. ALLERGIES: DOXYCYCLINE, ONIONS, ERYTHROMYCIN, MACROLIDES, NSAIDs. ADVERSE REACTIONS: PORK and MEPERIDINE. CURRENT MEDICATIONS: Albuterol inhaler. Butalbital. Fluticasone-salmeterol inhaler. Gabapentin 800 mg 3 times per day. Atarax 25 mg nightly. Synthroid 75 mcg daily. Metformin 500 mg 2 times daily. Ditropan 5 mg daily. Oxygen 2.5 liters to 3 liters via nasal cannula. Deltasone 10 mg daily. Propranolol 10 mg 2 times daily. Daliresp 500 mcg daily. Tramadol 50 mg 4 times daily. Trazodone 50 mg nightly. Geodon 80 mg 2 times daily. REVIEW OF SYSTEMS: The patient has irritability. She has dizziness. She has light and so und sensitivity. She has headaches. She has problems with memory, concentration. She den ies headaches that are getting worse. She denies seizures. She denies weakness or numbnes s in arms or legs. She denies slurred speech. She continues to have some word-finding an d memory issues. She denies repeated vomiting. She denies any unusual behavioral. She de nies change in state of consciousness. She denies neck pain. All other review of systems negative. PHYSICAL EXAMINATION: VITAL SIGNS: Heart rate 78, respiratory rate 18, blood pressure 97/46, weight 185 pounds, height 5 feet 2 inches. GENERAL: No acute distress, alert and oriented to person, place, time, situation. HEENT: Extraocular muscles intact. Sclerae are clear. NECK: Minor limitation in range of motion. Spurling's test negative. EXTREMITIES: Revea ls no clubbing or cyanosis. NEUROLOGIC: Demonstrates mild impairment in concentration. Memory intact with recall 3 w ords at 5 minutes, but she subjectively reports memory problems. She is able to name objec ts today, but she does report a feeling of word-finding difficulty. There was some delay i n naming of objects. Balance impairment is notable. Romberg test demonstrates significan t swaying. Romberg test aborted before she fell out of posture. Sensation, strength, refl exes, coordination grossly intact in upper and lower extremities. DATABASE: No new imaging or laboratory data available for review. ASSESSMENT: 1. Concussion with brief loss of consciousness, 02/2016, ICD-10, S06.0X9A. 2. Postconcussion headaches, ICD-10 G44.309. 3. Word-finding difficulty, ICD-10 R47.86. 4. Postconcussion vertigo, ICD-10 F07.81. PLAN: The patient is encouraged to continue getting plenty of mental and physical rest. At this time, I am prescribing physical therapy. I am asking her to participate in physica l therapy to address vestibular dysfunction. We have discussed that this might help her fe el more steady, might reduce her risk of further falls, may also help speed her neurologic recovery. She has had word-finding difficulties and some cognitive impairment. I am asking her to p articipate in physical therapy with an evaluation for memory, speech, cognition. She will continue trazodone low-dose at night in order to help her sleep. She is asked to continue getting physical and mental rest for exacerbation of concussion symptoms. She wi ll return to clinic in 1 months' time to review management of concussion symptoms. Thank you for allowing me to be involved in the care of your patient. If you have any ques tions regarding the care of the patient, please do not hesitate to call. AARON RODRIGUEZ JR, MD Dictated by AARON RODRIGUEZ JR, MD 04/11/2016 12:43:36 Transcribed on 04/11/2016 20:34:55 by job# [id number] Confirmation #: [id number] cc: YONG AMANDA DO ar, Aaron Kim MD - 04/11/2016 11:47 AM PSTThis office note has been dictated. Report Confirmation# [id number] signed by Aaron Rodriguez MD at 04/11/2016 12:43 PM PSTdocumented in this encounter Plan of [...] [place], | | | | | | [place] [address] | | | | | | [phone] | | | | | | | | +--------+---------+ + + + | 03/01/ | Office | Pulmonology | Mukul Clark MD | | | 2020 | Visit | | [address] | | | | | | [place] | | | | | | [address] | | | | | | | [...] [facility] | Outpatient | Routin | Concussion with | Ordered: 04/11/2016 | | Therapy - AMB | Referral | e | brief loss of | | | Referral | | | consciousness | | | | | | Post-concussion | | | | | | vertigo | | + + +--------+ + + documented as of this encounter Visit Diagnoses + + | Diagnosis | + + | Concussion with brief loss of consciousness - Primary Concussion with loss of | | consciousness of 30 minutes or less | + + | Post-concussion headache Post-traumatic headache, unspecified | + + | Word finding difficulty Other speech disturbance | + + | Post-concussion vertigo Postconcussion syndrome | + + documented in this encounter
--- OUTSIDE RECORDS SUMMARY | ~2019-09-27 | XMS | Encounter Summary ---
Demographics + + + | Address | [address] | | | [place] [address] | + + + | Home Phone [...] Team Providers + +------+ + | Care Strap Machine Operator Automatic Name | Role | Phone | + +------+ + PCP | Unavailable | + +------+ + Encounter Details +--------+ + + + + | Date | Type | Department | Care Team | Description | +--------+ + + + + | 10/09/ | Hospital | [facility] | Avi, Guru Garzon, | | | 2010 - | Encounter | MED CTR EMERGENCY | MD [address] | | | | | CENTER [address] | [facility] [place] | | | 10/10/ | | [place], [place] | [place] [address] | | | 2010 | | [address] | [phone] | | | | | [phone] | | | +--------+ + + + [...] documented as of this encounter ED Notes Guru Cárdenas MD - 10/09/2010 10:39 PM PDTDATE: 10/09/2010 IDENTIFICATION: A 45-year-old female. CHIEF COMPLAINT: Headaches and double vision. HISTORY OF PRESENT ILLNESS: This patient has a bad headache yesterday. She has been having intermitt ent double vision and blurred vision at times. This really concerned her, as it seemed to be worse at 4:00 and according to the friend she did not seem to be walking real well, and this concerned them a nd decided she better come in to be evaluated. No fevers. N o recent head injury. She does have a know n pituitary tumor and is undergoing evaluation a nd treatment for that by , endocrinology in the [facility]. PAST MEDICAL HISTORY: Asthma. She has known pituitary adenoma, history of gastroesophageal reflux di sease, diverticulosis, hypothyroidism. PAST SURGICAL HISTORY: She has had a hysterectomy, knee surgery, and hernia repair. SOCIAL HISTORY: She smokes. Providing her own history. Denies illicit drug use. MEDICATIONS 1. Ambien 2. Geodon 3. Effexor 4. Tramadol 5. Compazine 6. Multivitamin 7. [place]-3 fish oil 8. Levothyroxine 9. Crane 10. Gabapentin 11. Lexapro 12. Cipro 13. Cabergoline ALLERGIES 1. ERYTHROMYCIN 2. DEMEROL 3. NSAIDS REVIEW OF SYSTEMS GENERAL: No fever. HEAD: She has headaches. EYES: Blurred vision, double vision at times. THROAT: No sore throat. NOSE: No congestion. EARS: No ear pain. HEART: No chest pains. RESPIRATORY: No coughing or difficulty breathing. GI: No vomiting or diarrhea. : No complaint. MUSCULOSKELETAL: No complaint. DERMATOLOGY: No skin lesions. NEUROLOGIC: No seizure symptoms. She has had double vision and blurred vision. PHYSICAL EXAMINATION VITAL SIGNS: Blood pressure 100/47, pulse 86, respirations 16, temperature 97.1, saturatio n 97% on r oom air. GENERAL: This is a well-nourished 45-year-old female. HEENT: No trauma. Pupils equal. Conjunctivae pink. Mucous membranes moist. Nose and throat are clear . Tympanic membranes are clear. I do not detect any strabismus at this time. NECK: Supple. No adenopathy. HEART: Regular rate and rhythm. LUNGS: Clear to auscultation. ABDOMEN: Soft, nontender. EXTREMITIES: Warm and well perfused, with no edema. No joint swelling. Good range of motio n. BACK: Thoracic and lumbar spine are nontender. NEUROLOGIC: She is alert, interactive. Good muscle tone and strength. Speech is clear. Dolly braden is walter power. EMERGENCY DEPARTMENT COURSE: The patient was seen and examined shortly after arriving in [facility] emergen cy department. History and physical obtained. Vital signs were noted. Noncontras t head CT was obtaine d. Noncontrast head CT is normal. No suprasellar mass. This is a micr oadenoma, so it is not visualize d on CT. She does not have any active symptoms right now. Symptomatic outpatient treatment is indicat ed with close followup by her primary care phys ician. IMPRESSION 1. Intermittent diplopia. 2. Cephalgia. 3. History of pituitary tumor. PLAN: The patient is being discharged home in unchanged condition. Tylenol for headaches. Continue c urrent medications. Stay well hydrated. Follow up with her primary care provider . DICTATED BY: Guru Cárdenas MD Emergency Medicine JOB #: [id number] EXT JOB #:[id number] <Electronicall y Signed by Guru Cárdenas MD> 10/10/10 588 documented in this encounter Plan of Treatment [...] [place] | | | | | | [address] | | | | | | | | +--------+---------+ + + + | 11/24/ | Office | Cardiology | [place], | | | 2019 | Visit | | SINDHU Erickson [address] | | | | | | [place], | | | | | | [place] [address] | | | | | | [phone] | | | | | | | | +--------+---------+ + + + | 03/01/ | Office | Pulmonology | Mukul Clark MD | | | 2020 | Visit | | [address] | | | | | | [place] | | | | | | [address] | | | | | | | | +--------+---------+ + + + documented as of this encounter Procedures + +--------+ + + + | Procedure Name | Priori | Date/Time | Associated Diagnosis | Comments | | | ty | | | | + +--------+ + + + | CT HEAD WO CONTRAST | | 10/09/2010 | | Results for this | | | | 10:39 PM | | procedure are in the | | | | PDT | | results section. | + +--------+ + + + documented in this encounter Results CT Head wo Contrast (10/09/2010 10:39 PM PDT) + + | Specimen | + + | | + + + + + | Narrative | Performed At | + + + | [facility] Diagnostic Imaging Department | [facility] | | [address] [facility] | [facility] | | NONCONTRAST HEAD CT, 2330 HOURS, | DIAG IMG | | 10/09/2010 CLINICAL HISTORY: BLURRED VISION. FINDINGS: | | | The images are minimally degraded by patient motion and attendant | | | streak artifact. There is no acute intracranial process. No | | | hemorrhage is identified. The hemispheres, ventricles, brainst em, | | | and cerebellum are grossly unremarkable. The calvarium is intact. | | | There is an incidental small inner table osteoma in the right | | | frontal region. The central skull base is intact. Orbits are unrem | | | arkable. Patient is status post right antral surgery. There are | | | degenerative changes at the temporo mandibular joints. | | | IMPRESSION: 1. NEGATIVE FOR ACUTE INTRACRANIAL PROCESS. 2. | | | TMJ OSTEOARTHRITIS. Dictated Date/Time: 10/10/2010 11:33 | | | Transcribed Date/Time: 10/10/2010 11:50 Rn Social Work: | | | <Electronically Signed by Elías Cardoso MD> 10/11/10 0821 | | + + + + + | Procedure Note | + + | Reed, Rad Conversion - 04/02/2013 3:36 PM [facility] | | Diagnostic Imaging Department [address] [place] [address] | | NONCONTRAST HEAD CT, 2330 HOURS, 10/09/2010 CLINICAL | | HISTORY: BLURRED VISION. FINDINGS: The images are minimally degraded by patient | | motion and attendant streak artifact. There is no acute intracranial process. No | | hemorrhage is identified. The hemispheres, ventricles, brainstem, and cerebellum are | | grossly unremarkable. The calvarium is intact. There is an incidental small inner | | table osteoma in the right frontal region. The central skull base is intact. Orbits | | are unremarkable. Patient is status post right antral surgery. There are degenerative | | changes at the temporomandibular joints. IMPRESSION: 1. NEGATIVE FOR ACUTE | | INTRACRANIAL PROCESS. 2. TMJ OSTEOARTHRITIS. Dictated Date/Time: 10/10/2010 | | 11:33Transcribed Date/Time: 10/10/2010 11:50Transcriptionist: <Electronically | | Signed by Elías Cardoso MD> 10/11/10820 | |inner table osteoma in the right frontal region. The central skull base is intact. Orbits are unrem | |arkable. Patient is status post right antral surgery. There are degenerative changes at t he temporo | |mandibular joints. | | | |IMPRESSION: | |1. NEGATIVE FOR ACUTE INTRACRANIAL PROCESS. | | | |2. TMJ OSTEOARTHRITIS. | | | |Dictated Date/Time: 10/10/2010 11:33 | |Transcribed Date/Time: 10/10/2010 11:50 | |Rn Social Work: | |<Electronically Signed by Elías Cardoso MD> 10/11/10820 | + + + +---------+ + + | Performing | Address | City/State/Zipcode | Phone Number | | Organization | | | | + +---------+ + + | [place] | | | | | [facility] | | | | + +---------+ + + documented in this encounter Visit Diagnoses Not on filedocumented in this encounter"
--- OUTSIDE RECORDS SUMMARY | ~2019-09-27 | XMS | Encounter Summary ---
Demographics + + + | Address | [address] | | | [place] [address] | + + + | Home Phone | | + + + | Preferred Language | Unknown | + + + | Marital Status | Single | + + + | Episcopalian Affiliation | 1041 | + + + [...] Team Providers + +------+ + | Care Amusement Ride Inspector Name | Role | Phone | + +------+ + | Juan Cherry DO | PCP | | + +------+ + Reason for Visit + +--------+ + | Reason | Onset | Comments | | | Date | | + +--------+ + | Medication Refill | 05/09/ | | | | 2015 | | + +--------+ + Encounter Details +--------+--------+ + + + | Date | Type | Department | Care Team | Description | +--------+--------+ + + + | 05/09/ | Refill | [facility] | Kevin Sandoval, | Medication Refill | | 2014 | | PULMONARY [address] | MD [address] | | | | | [place], | [place], [place] | | | | | [place] [address] | [address] | | | | | [phone] | | | +--------+--------+ + + + [...] [place] | | | | | | [address] | | | | | | | | +--------+---------+ + + + | 11/24/ | Office | Cardiology | [place], | | | 2019 | Visit | | SINDHU Erickson [address] | | | | | | [place], | | | | | | [place] [address] | | | | | | [phone] | | | | | | | | +--------+---------+ + + + | 03/01/ | Office | Pulmonology | Mukul Clark MD | | | 2020 | Visit | | [address] | | | | | | [place] | | | | | | [address] | | | | | | | | +--------+---------+ + + + documented as of this encounter Visit Diagnoses Not on filedocumented in this encounter"
--- OUTSIDE RECORDS SUMMARY | ~2019-09-27 | XMS | Encounter Summary ---
Demographics + + + | Address | [address] | | | [place] [address] | + + + | Home Phone | | + + + | Preferred Language | Unknown | + + + | Marital Status | Single | + + + | Jain Affiliation | 1041 | + + + | Race | Unknown | + + + | Ethnic Group | Unknown | + + + Author + + + | Author | [facility] | | | and [place] | + + + | Organization | [facility] | | | and [place] | + + + | Address | Unknown | + + + | Phone | Unavailable | + + + Support + + +---------+ + | Name | Relationship | Address | Phone | + + +---------+ + | Juaan Sainz | ECON | Unknown | | + + +---------+ + | Vahe Khan | ECON | Unknown | | + + +---------+ + Care Team Providers + +------+ + | Care Forest Fire Specialist Supervisor Name | Role | Phone | + +------+ + PCP | Unavailable | + +------+ + Encounter Details +--------+ + + + + | Date | Type | Department | Care Team | Description | +--------+ + + + + | 09/22/ | Hospital | [facility] | Rocky Rodriguez | | | 2008 | Encounter | MED CTR EMERGENCY | MD Kyler [address] | | | | | CENTER [address] | [facility] | | | | | [place], [place] | [place] [address] | | | | | [address] | [phone] | | | | | [phone] | | | +--------+ + + + [...] | | | | | | [place] [address] | | | | | | [phone] | | | | | | | | +--------+---------+ + + + | 03/01/ | Office | Pulmonology | Mukul Clark MD | | | 2020 | Visit | | [address] | | | | | | [place] | | | | | | [address] | | | | | | | | +--------+---------+ + + + documented as of this encounter Visit Diagnoses Not on filedocumented in this encounter"
--- OUTSIDE RECORDS SUMMARY | ~2019-09-27 | XMS | Encounter Summary ---
Demographics + + + | Address | [address] | | | [place] [address] | + + + | Home Phone [...] Team Providers + +------+ + | Care Stage Producer Name | Role | Phone | + [...] Sharonda, | [facility] | | | Services | Rehabilitatio | Chronic | MD Jared | | | | Required | n | obstructive | [address] | Rehabilitatio | | | | | pulmonary | [address] | [address] | | | | | disease, | [place], | [place] | | | | | unspecified | [place] [address] | [place], [place] | | | | | COPD type | Phone: | [phone] | | | | | (HCC) | [phone] | Phone: | | | | | Pulmonary | Fax: | [phone] | | | | | emphysema, | [phone] | Fax: | | | | | unspecified | | [phone] | | | | | emphysema | | | | | | | type ([facility]) | | | +--------+ + + + + + Encounter Details +--------+ + + + + | Date | Type | Department | Care Team | Description | +--------+ + + + + | 04/03/ | Orders Only | [facility] [place] | JamaledgardoJared, | Chronic obstructive | | 2017 | | CARDIOLOGY [address] | pulmonary disease, | | | | [place], | [place], | unspecified COPD | | | | [place] [address] | [place] [address] | type (HCC) (Primary | | | | [phone] | [phone] | Dx); Pulmonary | | | | | | emphysema, | | | | | | unspecified | | | | | | emphysema type (HCC) | +--------+ + + + + Social [...] | | | | | | [place] [address] | | | | | | [phone] | | | | | | | | +--------+---------+ + + + | 03/01/ | Office | Pulmonology | Mukul Clark MD | | | 2020 | Visit | | [address] | | | | | | [place] | | | | | | [address] | | | | | | | | +--------+---------+ + + + + + +--------+ + + | Name | Type | Priori | Associated Diagnoses | Order Schedule | | | | ty | | | + + +--------+ + + | Referral to Cardiac | Outpatient | Routin | Chronic | 1 Occurrences | | Rehab | Referral | e | obstructive | starting 04/03/2016 | | | | | pulmonary disease, | until 04/03/2017 | | | | | unspecified COPD | | | | | | type (HCC) | | | | | | Pulmonary emphysema, | | | | | | unspecified | | | | | | emphysema type (HCC) | | + + +--------+ + + documented as of this encounter Visit Diagnoses + + | Diagnosis | + + | Chronic obstructive pulmonary disease, unspecified COPD type (HCC) - Primary | + + | Pulmonary emphysema, unspecified emphysema type (HCC) | + + documented in this encounter"
--- OUTSIDE RECORDS SUMMARY | ~2019-09-27 | XMS | Encounter Summary ---
Demographics + + + | Address | [address] | | | [place] [address] | + + + | Home Phone [...] Team Providers + +------+ + | Care Spring Floor Service Worker Name | Role | Phone | [...] | | | | [facility] | [address] | [address] | | | | | EXERCISE | [place], | [place] | | | | | | [place] [address] | [place], [place] | | | | | | Phone: | [phone] | | | | | | [phone] | Phone: | | | | | | Fax: | [phone] | | | | | | [phone] | Fax: | | | | | | | [phone] | +--------+--------+ + + + + Encounter Details +--------+---------+ + + + | Date | Type | Department | Care Team | Description | +--------+---------+ + + + | 07/02/ | Office | [facility] | Jared Mcdonough, | Chronic obstructive | | 2017 | Visit | [facility] | MD Migdalia King | pulmonary disease, | | | | REH[facility] [address] [place] [place], | unspecified COPD | | | | [address] [place] | [place] [address] | type (HCC) (Primary | | | | [place] [address] | [phone] | Dx); Mild persistent | | | | [phone] | | asthma without | | | | | | complication | +--------+---------+ + + + Social History [...] this encounter Progress Notes Desean Chris - 07/02/2016 12:56 PM PDTPatient tolerated exercise session without any compl [...] [place] | | | | | | [id number] | | | | | | | | +--------+---------+ + + + | 11/24/ | Office | Cardiology | [place], | | | 2019 | Visit | | SINDHU Erickson [address] | | | | | | [place] | | | | | | [place] [address] | | | | | | [phone] | | | | | | | | +--------+---------+ + + + | 03/01/ | Office | Pulmonology | Mukul Clark MD | | | 2020 | Visit | | [address] | | | | | | [place] [facility] [place] | | | | | | [address] | | | | | | | | +--------+---------+ + + + documented as of this encounter Visit Diagnoses + + | Diagnosis | + + | Chronic obstructive pulmonary disease, unspecified COPD type (HCC) - Primary | + + | Mild persistent asthma without complication Unspecified asthma | + + documented in this encounter"
--- OUTSIDE RECORDS SUMMARY | ~2019-09-27 | XMS | Clinical Summary ---
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 02/24/18 | | | | | 96 | | + + + + + | Med Mgmt: HDL | | 10/29/19 | | | | 3 | 18, | | | | | 10/29/19 | | | | | 18, | | | | | 11/01/19 | | | | | 16, | | | | | Addition | | | | | al | | | | | history | | | | | exists | | + + + + + | Med Mgmt: LDL | | 10/29/19 | | | | 3 | 18, | | | | | 10/29/19 | | | | | 18, | | | | | 11/01/19 | | | | | 16, | | | | | Addition | | | | | al | | | | | history | | | | | exists | | + + + + + | Med Mgmt: Total | | 10/29/19 | | | Cholesterol | 3 | 18, | | | | | 10/29/19 | | | | | 18, | | | | | 11/01/19 | | | | | 16, | | | | | Addition | | | | | al | | | | | history | | | | | exists | | + + + + + | Med Mgmt: | | 10/29/19 | | | Triglycerides | 3 | 18, | | | | | 10/29/19 | | | | | 18, | | | | | 11/01/19 | | | | | 16, | | | | | Addition | | | | | al | | | | | history | | | | | exists | | + + + + + | Vaccine: | | 07/19/19 | | | Dtap/Tdap/Td (4 - | 4 | 14, | | | Td) | | 11/14/19 | | | | | 12, | | | | | 01/22/20 | | | | | 08 | | + + + + + | Vaccine: | Completed | 12/06/19 | | | Pneumococcal 19-64 | | 18, | | | | | 11/24/19 | | | | | 16, | | | | | 02/24/19 | | | | | 12 | | + + + + + Procedures + +--------+ + + + | Procedure Name | Priori | Date/Time | Associated Diagnosis | Comments | | | ty | | | | + +--------+ + + + | PFT PULMONARY | Routin | 08/19/2019 | Abnormal lung | Results for this | | FUNCTION TESTING | e | 10:15 AM | function test | procedure are in the | | ORDERS | | PDT | | results section. | + +--------+ + + + | PFT PULMONARY | Routin | 08/19/2019 | Abnormal lung | Results for this | | FUNCTION TESTING | e | 10:15 AM | function test | procedure are in the | | ORDERS | | PDT | | results section. | + +--------+ + + + | PFT PULMONARY | Routin | 08/19/2019 | Abnormal lung | Results for this | | FUNCTION TESTING | e | 10:15 AM | function test | procedure are in the | | ORDERS | | PDT | | results section. | + +--------+ + + + | PFT PULMONARY | Routin | 08/19/2019 | Abnormal lung | Results for this | | FUNCTION TESTING | e | 10:15 AM | function test | procedure are in the | | ORDERS | | PDT | | results section. | + +--------+ + + + from Last 3 Months Results Pulmonary function test full PFT (08/19/2019 10:15 AM PDT) + + + | Narrative | Performed At | + + + | Kevin | | | MD Jaime 08/19/2019 12:29 PM PULMONARY FUNCTION TESTING | | | SPIROMETRY: The prebronchodilator FVC was 3.20 L or 103 % of | | | predicted. The prebronchodilator FEV1 was 1.51 L or 59 % of predicted. | | | FEV1/FVC ratio was 47 %. Following inhalation of albuterol the | | | patient's FEV1 eric to 1.89, 74% of predicted. This represents 380 | | | mL of improvement or 25%. LUNG VOLUMES: The total lung capacity was | | | 5.67 L or 117 % of predicted. The residual volume was 2.27 L or 129 % | | | of predicted. RV/TLC ratio was 111 % of predicted. DIFFUSION | | | CAPACITY: The diffusion capacity was 18.5 mL/mmHg per minute or 75 % | | | of predicted. IMPRESSION: Spirometry is consistent with moderately | | | severe obstructive physiology that becomes mild following inhalation | | | of bronchodilators. Lung volume testing is consistent with borderline | | | gas trapping physiology. Diffusion capacity is borderline abnormal and | | | is not corrected for measured hemoglobin. Compared to pulmonary | | | function test performed 02/28/2016 postbronchodilator FEV1 has increased | | | 32% and the uncorrected DLCO has increased 13%. Test performed: | | | 08/19/2019Electronically signed by: Kevin Sandoval MD, | | | 08/19/2019 12:26 PM [facility] | | |obstructive physiology that becomes mild following inhalation of | | |bronchodilators. Lung volume testing is consistent with | | |borderline gas trapping physiology. Diffusion capacity is | | |borderline abnormal and is not corrected for measured hemoglobin. | | | | | |Compared to pulmonary function test performed 02/28/2016 | | |postbronchodilator FEV1 has increased 32% and the uncorrected | | |DLCO has increased 13%. | | | | | |Test performed: 08/19/2019 | | |Electronically signed by: Kevin Sandoval MD, 08/19/2019 | | |12:26 PM PDT | | |[facility] | | + + + from Last 3 Months Insurance + +--------+ +--------+ +---------+--------+ | Payer | Benefi | Subscriber | Effect | Phone | Address | Type | | | t Plan | ID | wanda | | | | | | / | | Dates | | | | | | Group | | | | | | + +--------+ +--------+ +---------+--------+ | MEDICARE | MEDICA | [id number] | | [phone] | | Medica | | | RE | | 999-Pr | 5 | | re | | | PART A | | esent | | | | | | AND B | | | | | | + +--------+ +--------+ +---------+--------+ | MEDICARE | MEDICA | [id number] | | [phone] | | Medica | | | RE | | 999-Pr | 5 | | re | | | PART A | | esent | | | | | | AND B | | | | | | + +--------+ +--------+ +---------+--------+ + +--------+ +--------+ + + | Guarantor Name | Accoun | Relation to | Date | Phone | Billing Address | | | t Type | Patient | of | | | | | | | | | | + +--------+ +--------+ + + | Rosario Malik W | Person | Self | [birth year] | [address] | | | al/Fam | | 1965 | [phone] | [address] [place] | | | [place] | | | 4 (Home) | [address] | | | | | | [phone] | | | | | | | 4 (Work) | | + +--------+ +--------+ + + | Rosario Malik W | Person | Self | [birth year] | [address] | | | al/Fam | | 1965 | [phone] | [address] [place] | | | [place] | | | 4 (Home) | [address] | + +--------+ +--------+ + + | Rosario Malik W | Worker | Self | [birth year] | [address] | | | s Comp | | 1964 | [phone] | [place] | | | | | | 1 (Home) | [address] | | | | | | [phone] | | | | | | | 3 (Work) | | + +--------+ +--------+ + + Advance Directives + + + + + | Type | Date Recorded | Patient | Explanation | | | | Tractor Operator | | + + + + + | Power of | | | | | Bottling Line Operator | | | | + + + + + | Advance | 02/28/2014 6:59 | | | | Directive | AM | | | + + + + + + + + + + | Code Status | Date | Date | Comments | | | Activated | Inactivated | | + + + + + | Full Code | 06/18/2018 | 06/18/2018 | | | | 4:12 PM | 7:17 PM | | + + + + + + + + +---+ | | | | | + + + +---+ | Full Code | 2018 | 01/10/2018 | | | | 6:36 PM | 4:22 PM | | + + + +---+ + + + +---+ | | | | | + + + +---+ | Full Code | 11/22/2015 | 11/22/2015 | | | | 9:28 AM | 1:17 PM | | + + + +---+
--- OUTSIDE RECORDS SUMMARY | ~2019-09-27 | XMS | Encounter Summary ---
Demographics + + + | Address | [address] | | | [place] [address] | + + + | Home Phone [...] | +--------+ + + + + | 05/18/ | Documentati | [facility] | Janey Low, | | | 2013 | on | [facility] | HISTOLOGY SPECIALIST [address] | | | | | OP [address] | [place], [place] | | | | | [place], [place] | [address] | | | | | [address] | [phone] | | | | | [phone] | | | +--------+ + + + [...] as of this encounter Progress Notes Janey Low PTA - 05/18/2013 9:14 [facility] [address] [place] [address] Cancellation/No Show Date: 05/18/2013 Patient Information Patient Name: Rosario Malik Date of : 1965 Age: 48 y.o. Reason for missed visit: No show. Phone call placed: yes Plan: Called and spoke to pt. She was very sorry. Just forgot about appointment. Reschedule d for tomorrow AM. Electronically signed by: Janey Low PTA, 05/18/2013 9:14 Patient Name: Rosario Malik/: 1965/ documented in [...] [place] | | | | | | [id number] | | | | | | | | +--------+---------+ + + + | 11/24/ | Office | Cardiology | [place], | | | 2019 | Visit | | SIND[address] Erickson [address] | | | | | | [place], | | | | | | [place] [address] | | | | | | [phone] | | | | | | | [...]
--- OUTSIDE RECORDS SUMMARY | ~2019-09-27 | XMS | Encounter Summary ---
Demographics + + + | Address | [address] | | | [place] [address] | + + + | Home Phone [...] Team Providers + +------+ + | Care Pilot Manager Name | Role | Phone | + +------+ + | Juan Cherry DO | PCP | | + +------+ + Reason for Visit +--------+--------+ + | Reason | Onset | Comments | | | Date | | +--------+--------+ + | Other | 07/19/ | medication request | | | 2014 | | +--------+--------+ + Encounter Details +--------+ + + + + | Date | Type | Department | Care Team | Description | +--------+ + + + + | 07/19/ | Telephone | [facility] | Kevin Sandoval, | Other (medication | | 2015 | | PULMONARY [address] | MD [address] | request) | | | | [place], | [place], [place] | | | | | [place] [address] | [address] | | | | | [phone] | | | +--------+ + + + [...] Telephone Encounter - Marilyn Osborne RN - 07/19/2014 11:01 AM PDTRosario called dora patel a prescription for Spiriva handihaler as it worked well for her. Prescription sent to [facility] docu mented in this encounter Plan of Treatment [...] [place] | | | | | | [address] | | | | | | | | +--------+---------+ + + + | 11/24/ | Office | Cardiology | [place], | | | 2019 | Visit | | SINDHU Erickson [address] | | | | | | [place], | | | | | | [place] [address] | | | | | | [phone] | | | | | | | [...]
--- OUTSIDE RECORDS SUMMARY | ~2019-09-27 | XMS | Encounter Summary ---
Demographics + + + | Address | [address] | | | [place] [address] | + + + | Home Phone | | + + + | Preferred Language | Unknown | + + + | Marital Status | Single | + + + | Methodist Affiliation | 1041 | + + + | Race | Unknown | + + + | Ethnic Group | Unknown | + + + Author + + + | Author | [facility] | | | and [place] | + + + | Organization | [facility] | | | [...] Team Providers + +------+ + | Care Eviscerator Name | Role | Phone | + +------+ + | Juan Cherry DO | PCP | | + +------+ + Reason for Visit +--------+--------+ + | Reason | Onset | Comments | | | Date | | +--------+--------+ + | Other | 07/14/ | | | | 2012 | | +--------+--------+ + Encounter Details +--------+ + + + + | Date | Type | Department | Care Team | Description | +--------+ + + + + | 07/14/ | Telephone | [facility] [place] | Ana Laura Lopez, | Other | | 2012 | | [facility] [address] | RN | | | | | [address] | | | | | | [place] | | | | | | [address] | | | | | | [phone] | | | +--------+ + + + [...] this encounter Miscellaneous Notes Telephone Encounter - Loreta London MD - 07/14/2012 2:51 PM PDTThank you for atte mpting. We will have to wait and see if she attempts to contact us. elephone Encounter - Ana Laura Ernandez RN - 07/14/2012 2:26 PM PDTTelephone call placed to Annika's home number listed in demograp hics in the attempts to schedule a follow up appt with Dr. London per her request d/t ur [facility] care appt today. Phone number listed is a non working number. Placed call to urgent c are since patient was seen there today. Urgent care gave me number of [phone] which wa s incorrect number for this patient. Contacted real estate salesperson listed in demographics x 3 no answer. elephone Enc juan - Loreta London MD - 07/14/2012 9:18 AM PDTSounds fine. She actually did no t come in for her last appt. And has rescheduled in July. We should reschedule this to next week for follow up to her urgent care visit. It looks like she has already checked in.Electr onically signed by Loreta London MD at 07/14/2012 9:19 AM PDTTelephone Encounter - Ana Laura Ernandez RN - 07/14/2012 8:12 AM PDTGretmeghna called this a.m. Stating increased asth ma symptoms, Episodes 3 x per.day . Per annika she is coughing up green phlegm with incr eased shortness of breath. No fever or recent illnesses. She states she is unsure why the increase in her asthma. Explained I would notify Dr. London and at the end of call Yanet coffman states she is going to urgent care as her shortness of breath is not being relieved by current inhalers. docu mented in this encounter Plan of [...] [place] | | | | | | [id number] | | | | | | | | +--------+---------+ + + + | 11/24/ | Office | Cardiology | [place], | | | 2019 | Visit | | SINDHU Erickson [address] | | | | | | [place] | | | | | | [place] [address] | | | | | | [phone] | | | | | | | | +--------+---------+ + + + | 03/01/ | Office | Pulmonology | Mukul Clark MD | | | 2020 | Visit | | [address] | | | | | | [place] | | | | | | [address] | | | | | | | | +--------+---------+ + + + documented as of this encounter Visit Diagnoses Not on filedocumented in this encounter"
--- OUTSIDE RECORDS SUMMARY | ~2019-09-27 | XMS | Encounter Summary ---
Demographics + + + | Address | [address] | | | [place] [address] | + + + | Home Phone [...] Team Providers + +------+ + | Care Rewinder Name | Role | Phone | + +------+ + | Juan Cherry DO | PCP | | + +------+ + Encounter Details +--------+ + + + + | Date | Type | Department | Care Team | Description | +--------+ + + + + | 08/05/ | Hospital | [facility] | Kevin Sandoval, | Chronic airway | | 2013 | Encounter | MED CTR PULMONARY | MD [address] | obstruction, not | | | | FUNCTION [address] | [place], [place] | elsewhere classified | | | | [place], | [address] | (HCC) | | | | [place] [address] | | | | | | [phone] | | | +--------+ + + + [...] | | | | | order to [facility]. | | | | | + [...] | | send order to [facility] | | | | | | | [facility]. | | | | | [...] [place] | | | | | | [address] | | | | | | | | +--------+---------+ + + + | 11/24/ | Office | Cardiology | [place], | | | 2019 | Visit | | SINDHU Erickson [address] | | | | | | [place], | | | | | | [place] [address] | | | | | | [phone] | | | | | | | | +--------+---------+ + + + | 03/01/ | Office | Pulmonology | Mukul Clark MD | | | 2020 | Visit | | [address] | | | | | | [place] | | | | | | [address] | | | | | | | [...] classified | | | | | | (HCC) | | + +--------+ + + + documented in this encounter Visit Diagnoses + + | Diagnosis | + + | Chronic airway obstruction, not elsewhere classified | + + documented in this encounter"
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
--- OUTSIDE RECORDS SUMMARY | ~2019-09-27 | XMS | Encounter Summary ---
Demographics + + + | Address | [address] | | | [place] [address] | + + + | Home Phone | | + + + | Preferred Language | Unknown | + + + | Marital Status | Single | + + + | Scientology Affiliation | 1041 | + + + | Race | Unknown | + + + | Ethnic Group | Unknown | + + + Author + + + | Author | [facility] | | | and [place] | + + + | Organization | [facility] | | | and [...] Providers + +------+ + | Care Hand Funnel Coater Name | Role | Phone | + +------+ + | Juan Cherry DO | PCP | | + +------+ + Encounter Details +--------+ + + + + | Date | Type | Department | Care Team | Description | +--------+ + + + + | 11/14/ | Abstract | [facility] | Jared Mcdonough, | | | 2014 | | CARDIOLOGY [address] | MD [address] [place] | | | | | [place], | [place], | | | | | [place] [address] | [place] [address] | | | | | [phone] | [phone] | | | | | | | [...] [place] | | | | | | [place] [address] | | | | | | [phone] | | | | | | | | +--------+---------+ + + + | 03/01/ | Office | Pulmonology | Mukul Clark MD | | | 2020 | Visit | | [address] | | | | | | [place] | | | | | | [address] | | | | | | | | +--------+---------+ + + + documented as of this encounter Procedures + +--------+ + + + | Procedure Name | Priori | Date/Time | Associated Diagnosis | Comments | | | ty | | | | + +--------+ + + + | EXTERNAL LAB: BUN | Routin | 07/11/2014 | | Results [...]
--- OUTSIDE RECORDS SUMMARY | ~2019-09-27 | XMS | Encounter Summary ---
Demographics + + + | Address | [address] | | | [place] [address] | + + + | Home Phone [...] Team Providers + +------+ + | Care Pound Keeper Name | Role | Phone | + +------+ + | Juan Cherry DO | PCP | | + +------+ + Reason for Visit +--------+--------+ + | Reason | Onset | Comments | | | Date | | +--------+--------+ + | Other | 02/09/ | | | | 2014 | | +--------+--------+ + Encounter Details +--------+ + + + + | Date | Type | Department | Care Team | Description | +--------+ + + + + | 02/09/ | Telephone | [facility] | Kevin Sandoval, | Leora | | 2013 | | PULMONARY [address] | MD [address] | | | | | [place], | [place] | | | | | [place] [address] | [address] | | | | | [phone] | | | +--------+ + + + [...] this encounter Miscellaneous Notes Telephone Encounter - Kevin Sandoval MD - 02/09/2014 2:38 PM PSTExcellent advice thank you. elephone Encou nter - Loraine Hawkins RN - 02/09/2014 1:34 PM PSTPatient calls back to say these are t he directions for her prednisone from the ER: prednisone 10 mg tablets, take 6 tablets by [facility] daily for 7 days, then 3 tablets daily for 7 days then 1.5 tablets daily for 7 days then stop. She erred in taking 4 tablets for 7 days then 3 tablets for 7 days and then 1.5 table ts for 7 days. Today was the 7 th day she took 1.5 tablets. Advised her to take one 10 mg ta blet by mouth daily starting tomorrow until she see's Dr Sandoval in follow up 03/09/14. She said she has 16 pills left because of her error. Called in to [facility] of 10 mg predni sone tablets that Dr Sandoval entered today. Updated prednisone 10 mg on med list to reflect one tablet by mouth daily (may change after 03/09/14 visit). documented in this encounter Plan of Treatment [...] | | | | | | [place] [address] | | | | | | [phone] | | | | | | | | +--------+---------+ + + + | 03/01/ | Office | Pulmonology | Mukul Clark MD | | | 2020 | Visit | | [address] | | | | | | [place] | | | | | | [address] | | | | | | | | +--------+---------+ + + + documented as of this encounter Visit Diagnoses Not on filedocumented in this encounter"
--- OUTSIDE RECORDS SUMMARY | ~2019-09-27 | XMS | Encounter Summary ---
Demographics + + + | Address | [address] | | | [place] [address] | + + + | Home Phone | | + + + | Preferred Language | Unknown | + + + | Marital Status | Single | + + + | Episcopal Affiliation | 1041 | + + + [...] | + + +---------+ + | Juana Saizn | ECON | Unknown | | + + +---------+ + | Vahe Khan | ECON | Unknown | | + + +---------+ + Care Team Providers + +------+ + | Care Dealer Analyst Name | Role | Phone | + +------+ + | Juan Cherry DO | PCP | | + +------+ + Encounter Details +--------+---------+ + + + | Date | Type | Department | Care Team | Description | +--------+---------+ + + + | 06/06/ | Office | [facility] | Jared Mcdonough, | Chronic obstructive | | 2017 | Visit | MED CTR CARDIAC | [address] | pulmonary disease, | | | | REHABILITATION [address] | [place], | unspecified COPD | | | | [address] [place] | [place] [address] | type (HCC) (Primary | | | | [place] [address] | [phone] | Dx); Pulmonary | | | | [phone] | | emphysema, | | | | [...] this encounter Progress Notes Desean Chris - 06/06/2016 3:12 PM PDT [facility] CARDIAC REHABILITATION [address] [place] [address] Cardiac Rehab Date: 06/06/2016 Patient Information Patient Name: Roasrio Malik Date of : 1965 Age: 51 y.o. Encounter Diagnoses Code Name Primary? J44.9 Chronic obstructive pulmonary disease, unspecified COPD type (HCC) Yes J43.9 Pulmonary emphysema, unspecified emphysema type (HCC) Number of Visits Approved: 10 (7) Taken Medications Today? Yes Any Changes in Medications? No Any Problems to Report? No Pain Level? 0/10 Fall Risk/Liquid Oxygen Denies any adverse symptoms during exercise. Sinus rhythm without ectopy. SBP with small drop during exertion. Compliant with medications and therapeutic lifestyle changes. Continue monitored exercise. Any abnormal vital signs or rhythm strips will be reported in progress note. Electronically signed by: Desean Chris, 06/06/2016 15:12 Patient Name: Rosario Malik/: 1965/ documented in [...] [place] | | | | | | [address] | | | | | | | | +--------+---------+ + + + | 11/24/ | Office | Cardiology | [place], | | | 2019 | Visit | | SINDHU Erickson [address] | | | | | | [place], | | | | | | [place] [address] | | | | | | [phone] | | | | | | | | +--------+---------+ + + + | 03/01/ | Office | Pulmonology | Mukul Clark MD | | | 2020 | Visit | | [address] | | | | | | [place] | | | | | | [address] | | | | | | | | +--------+---------+ + + + documented as of this encounter Visit Diagnoses + + | Diagnosis | + + | Chronic obstructive pulmonary disease, unspecified COPD type (HCC) - Primary | + + | Pulmonary emphysema, unspecified emphysema type (HCC) | + + documented in this encounter"
--- OUTSIDE RECORDS SUMMARY | ~2019-09-27 | XMS | Encounter Summary ---
Demographics + + + | Address | [address] | | | [place] [address] | + + + | Home Phone [...] Team Providers + +------+ + | Care Welfare Case Worker Name | Role | Phone | [...] | Pulmonary | MD Mukul | [address] | | | | | emphysema, | [address] | [place], | | | | | unspecified | [address] | [place] [address] | | | | | emphysema | [address] | Phone: | | | | | type (HCC) | [address], [place] | [phone] | | | | | Procedures | [address] | Fax: | | | | | CT Chest wo | Phone: | [phone] | | | | | Contrast | [phone] | | | | | | | Fax: | | | | | | | [phone] | | +--------+--------+ + + + + [...] | Pulmonary | MD Mukul | [address] | | | | | emphysema, | [address] | [place], | | | | | unspecified | [address] | [place] [address] | | | | | emphysema | [address] | Phone: | | | | | type (HCC) | [address], [place] | [phone] | | | | | Procedures | [address] | Fax: | | | | | CT Chest wo | Phone: | [phone] | | | | | Contrast | [phone] | | | | | | | Fax: | | | | | | | [phone] | | +--------+--------+ + + + + Encounter Details +--------+ + + + + | Date | Type | Department | Care Team | Description | +--------+ + + + + | 03/05/ | Hospital | [facility] | Mukul Clark MD | Pulmonary emphysema, | | 2017 | Encounter | MED CTR [facility] [address] | [address] | unspecified | | | | [address] [place], | [address], [place] | emphysema type (HCC) | | | | [place] [address] | [address] | | | | | [phone] | | | +--------+ + + + [...] | | | | | order to [facility]. | | | | | [...] | | send order to [facility] | | | | | | | [facility]. | | | | | | | [...] | | | | | | | ([facility]) | | | | | [...] | 0 | 10/13/19 | | | [id number]-HYJQ-Ccyc | mouth as needed. | | | 16 | 7 | | -Cod [id number] MG | | | | | | [...] | | | | | | | ([facility]) | | | | | [...] [place] | | | | | | [place] [address] | | | | | | [phone] | | | | | | | | +--------+---------+ + + + | 03/01/ | Office | Pulmonology | Mukul Clark MD | | | 2020 | Visit | | [address] | | | | | | [place] | | | | | | [address] | | | | | | | | +--------+---------+ + + + documented as of this encounter Procedures + +--------+ + + + | Procedure Name | Priori | Date/Time | Associated Diagnosis | Comments | | | ty | | | | + +--------+ + + + | CT CHEST WO CONTRAST | Routin | 03/05/2016 | Pulmonary | Results for this | | | e | 11:53 AM | emphysema, | procedure are in the | | | | PST | unspecified | results section. | | | | | emphysema type (HCC) | | + +--------+ + + + documented in this encounter Results CT Chest wo Contrast (03/05/2016 11:53 AM PST) + + | Specimen | + + | | + + + + + | Narrative | Performed At | + + + | CT CHEST WO CONTRAST 03/05/2016 11:46 AM HISTORY: Pulmonary | [facility] | | emphysema, unspecified emphysema type (HCC). COMPARISON: | [facility] | | 11/16/2013, 02/09/2010. PROTOCOL: Axial images of the chest were | [facility] | | obtained. Coronal and sagittal reformations were acquired. | - IMAGING | | FINDINGS: Neck base is normal. The heart is of normal size. There | | | is mild pericardial thickening. Aorta is normal. The pulmonary | | | arteries are unremarkable. SVC is normal. No enlarged lymph nodes | | | are seen in the mediastinum, nargis, or axilla. Trachea and esophagus | | | demonstrate no acute findings. Mild centrilobular emphysema are | | | visualized of the bilateral lungs with mild hyperinflation. Mild | | | scattered scarring are present. There is a 5 mm nodule in the right | | | lung apex (image 23). A tiny calcified granuloma is in the anterior | | | aspect of the right upper lung lobe. There is a tiny calcified | | | granuloma in the left lung base. No pleural effusion or pneumothorax | | | is seen. There is a small calcified granuloma in the medial upper | | | spleen. Surgical material is at the GE junction. Chest wall | | | structures are normal. There are no acute osseous abnormalities. | | | IMPRESSION - Mild emphysema of bilateral lungs. 5 mm nodule in | | | the right lung apex. For a low risk patient, a follow CT scan is | | | recommend in 12 months. For a high-risk patient, follow-up CT scans | | | are recommended at 6-12 and 18-24 months. Dictated and Signed by: | | | Kobe Lentz MD Electronically signed: 03/05/2016 12:41 PM | | + + + + + | Procedure Note | + + | Reed, Rad Results In - 03/05/2016 12:[address] CHEST WO CONTRAST 03/05/2016 11:46 AM | | | | HISTORY: Pulmonary emphysema, unspecified emphysema type (HCC). | | | | COMPARISON: 11/16/2013, 02/09/2010. | | | | PROTOCOL: Axial images of the chest were obtained. Coronal and sagittal | | reformations were acquired. | | | | FINDINGS: | | Neck base is normal. | | | | The heart is of normal size. There is mild pericardial thickening. Aorta is | | normal. The pulmonary arteries are unremarkable. SVC is normal. | | | | No enlarged lymph nodes are seen in the mediastinum, nargis, or axilla. Trachea | | and esophagus demonstrate no acute findings. | | | | Mild centrilobular emphysema are visualized of the bilateral lungs with mild | | hyperinflation. Mild scattered scarring are present. There is a 5 mm nodule in | | the right lung apex (image 23). A tiny calcified granuloma is in the anterior | | aspect of the right upper lung lobe. There is a tiny calcified granuloma in the | | left lung base. No pleural effusion or pneumothorax is seen. | | | | There is a small calcified granuloma in the medial upper spleen. Surgical | | material is at the GE junction. | | | | Chest wall structures are normal. There are no acute osseous abnormalities. | | | | IMPRESSION - | | Mild emphysema of bilateral lungs. | | | | 5 mm nodule in the right lung apex. For a low risk patient, a follow CT scan is | | recommend in 12 months. For a high-risk patient, follow-up CT scans are | | recommended at 6-12 and 18-24 months. | | | | Dictated and Signed by: Kobe Lentz MD | | Electronically signed: 03/05/2016 12:41 PM | + + + + + + + | Performing | Address | City/State/Zipcode | Phone Number | | Organization | | | | + + + + + | [facility] | [address] | [place] | [phone] | | [facility] | | [address] | | | - IMAGING | | | | + + + + + documented in this encounter Visit Diagnoses + + | Diagnosis | + + | Pulmonary emphysema, unspecified emphysema type (HCC) | + + documented in this encounter
--- OUTSIDE RECORDS SUMMARY | ~2019-09-27 | XMS | Encounter Summary ---
Demographics + + + | Address | [address] | | | [place] [address] | + + + | Home Phone | | + + + | Preferred Language | Unknown | + + + | Marital Status | Single | + + + | Alevism Affiliation | 1041 | + + + | Race | Unknown | + + + | Ethnic Group | Unknown | + + + Author + + + | Author | [facility] | | | and [place] | + + + | Organization | [facility] | | [...] Team Providers + +------+ + | Care Software Testing Specialist Name | Role | Phone [...] | Concussion | Aaron Kim MD | Retort Furnace Operator [address] | | | Required | | with brief | [address] | [place] | | | | | loss of | [address] | [place], [place] | | | | | consciousnes | [place], | [address] | | | | | s Word | [place] [address] | Phone: | | | | | finding | Phone: | [phone] | | | | | difficulty | [phone] | Fax: | | | | | [phone] | Fax: | [phone] | | | | | (ICD-10-CM) | [phone] | | | | | | - [...] | +--------+ + + + + | 06/06/ | Hospital [facility] | Aaron Rodriguez, | Concussion with | | 2017 | Encounter | MED CTR SPEECH | MD [address] | brief (less than one | | | | THERAPY [address] | [place] | hour) loss of | | | | [place], | [address] | consciousness | | | | [place] [address] | | (Primary Dx) | | | | [phone] | Kathi Soto, | | | | | | Speech Pathologist | | +--------+ + + + + [...] | | | | | order to [facility]. | | | | | + [...] | | | | | | | [facility]. | | | | | | [...] | | | | | | | ([facility]) | | | | | | + + + +---------+ + + | | Take 1 capsule by | | 0 | 10/13/19 | | | Zufywwrdao-CPHV-Jvpy | mouth as needed. | | | 16 | 7 | | -Cod [id number] MG | | | | | | [...] | | | | | | | ([facility]) | | | | | | + [...] Progress Notes Kathi Soto, Speech Pathologist - 06/06/2016 5:52 PM PDT [facility] [address] [place] [address] Speech Therapy Daily Treatment Note Date: 06/06/2016 Patient Information Patient Name: Rosario Malik Date of : 1965 Age: 51 y.o. Encounter Diagnoses Code Name Primary? S06.0X9A Concussion with brief (less than one hour) loss of consciousness Yes Date of Onset: 03/15/2016 Referring Provider: Aaron Rodriguez MD Rehab Precautions Office Visit from 05/01/[address] [facility] CTR THERAPY PT OP Rehab Precautions Precautions None Rehab Learning Style [facility] ADULT PROTECTIVE CASEWORKER OP EVAL from 05/16/[address] [facility] CTR SPEECH THERAPY Office V isit from 05/01/[address] [facility] CTR THERAPY PT OP Learning Style Patient's Optimum Learning Style observation, performance of task listening, reading, ob servation, performance of task Today's Treatment Start Time: 1115 Stop time: 1200 Duration: 45 minutes Timed Treatment Codes: minutes # of Speech Visits to Date: 3 Pain Assessment: Pain Scale Used: NUMERIC Pain Rating Pre Assessment: 0 Subjective:Pt arrived to with portable O2 with NC in place. Pt reports increased fatigue following PT today. Agreeable and motivated throughout.Stated increased emotional fatigue a nd relates this to being stressed from family dynamics. Objective/Assessment: Established HEP: Brain HQ 1x/week with library pass, written exercises 5x/week for 5-30 min Discussed use of memory strategies- increased note taking and setting timers is working wel l. Targeted visual recall, sustained attention and visual/spatial skills with pathfinding PEAK application recalling mines and connecting dots together, needed moderate cues to use verba l repetition and visual techniques for recalling location of mines. Targeted speed, sustained attention, and visual recall with identifying location of birds a long clock formation, needed min- moderate cues to use verbal recall strategies. Awareness of environmental cues targeted with visual recall tasks, moving in vs moving out identification with immediate recall. Needed min-moderate cues to verbalize directions to im prove recall. Plan: Target immediate recall with list learning and story recall. Electronically signed by: Kathi Soto SPEECH PATHO, 06/06/2016 18:01 Patient Name: Rosario Malik/: 1965/ docum ented in this encounter Plan of Treatment +--------+---------+ + + + | Date | Type | Specialty | Care Team | Description | +--------+---------+ + + + | 09/27/ | Office | Sleep Medicine | Meghan Garcai MD | | | 2019 | Visit | | [address] | | | | | | [place] | | | | | | [id number] | | | | | | | | +--------+---------+ + + + | 11/24/ | Office | Cardiology | [place], | | | 2019 | Visit | | SINDHU Erickson [address] | | | | | | [place] | | | | | | [place] [address] | | | | | | [phone] | | | | | | | | +--------+---------+ + + + | 03/01/ | Office | Pulmonology | Mukul Clark MD | | | 2020 | Visit | | [address] | | | | | | [place] | | | | | | [address] | | | | | | | [...]
--- OUTSIDE RECORDS SUMMARY | ~2019-09-27 | XMS | Encounter Summary ---
Demographics + + + | Address | [address] | | | [place] [address] | + + + | Home Phone [...] Team Providers + +------+ + | Care Electronics Parts Sales Representative Name | Role | Phone | + +------+ + | Juan Cherry DO | PCP | | + +------+ + Reason for Visit + +--------+ + | Reason | Onset | Comments | | | Date | | + +--------+ + | Shortness of Breath | 02/14/ | | | | 2012 | | + +--------+ + Encounter Details +--------+ + + + + | Date | Type | Department | Care Team | Description | +--------+ + + + + | 02/14/ | Telephone | [facility] | Jesus Quiles | Shortness of Breath | | 2012 | | PULMONARY [address] | MD [place] [address] [facility] | | | | | [place], | [place], [place] | | | | | [place] [address] | [id number] | | | | | [phone] | | | +--------+ + + + [...] this encounter Miscellaneous Notes Telephone Encounter - Jesus Quiles MD - 02/14/2013 1:45 PM PSTDelayed documentati on. The patient called Friday night February 12. She was having a COPD exacerbation and reques kelley prednisone. Prescription was called to [facility] for prednisone 10 mg tabs, # 20, To take 40 mg /day for 2 days, then 30 mg/day for 2 days, then 20 mg/day for 2 days, then 10 mg/day for 2 days . She will call back if not feeling better or feels she needs an antibiotic. Electronicall y signed by Jesus Quiles MD at 02/14/2013 1:50 PM PSTdocumented in this encounter Plan of [...] [place] | | | | | | [address] | | | | | | | | +--------+---------+ + + + | 11/24/ | Office | Cardiology | [place], | | | 2019 | Visit | | SINDHU Erickson [address] | | | | | | [place] | | | | | | [place] [address] | | | | | | [phone] | | | | | | | [...]
--- OUTSIDE RECORDS SUMMARY | ~2019-09-27 | XMS | Encounter Summary ---
Demographics + + + | Address | [address] | | | [place] [address] | + + + | Home Phone [...] Team Providers + +------+ + | Care Foreign Languages Professor Name | Role | Phone | + +------+ + PCP | Unavailable | + +------+ + Encounter Details +--------+ + + + + | Date | Type | Department | Care Team | Description | +--------+ + + + + | 05/30/ | [facility] | [facility] | | | | 2009 - | Encounter | MED CTR OP REHAB | | | | | | [address] [place] | | | | 06/23/ | | [place] [address] | | | | 2009 | | [phone] | | | +--------+ + + + [...] | | | | | | [place] [address] | | | | | | [phone] | | | | | | | | +--------+---------+ + + + | 03/01/ | Office | Pulmonology | Mukul Clark MD | | | 2020 | Visit | | [address] | | | | | | [place] | | | | | | [address] | | | | | | | | +--------+---------+ + + + documented as of this encounter Visit Diagnoses Not on filedocumented in this encounter"
--- OUTSIDE RECORDS SUMMARY | ~2019-09-27 | XMS | Encounter Summary ---
Demographics + + + | Address | [address] | | | [place] [address] | + + + | Home Phone [...] Providers + +------+ + | Care Street Roller Engineer Name | Role | Phone | + +------+ + | Juan Cherry DO | PCP | | + +------+ + Reason for Visit +--------+--------+ + | Reason | Onset | Comments | | | Date | | +--------+--------+ + | Other | 08/14/ | pulse rate | | | 2018 | | +--------+--------+ + Encounter Details +--------+ + + + + | Date | Type | Department | Care Team | Description | +--------+ + + + + | 08/14/ | Telephone | [facility] | [place], | Other (pulse rate) | | 2017 | | CARDIOLOGY [address] | SINDHU Erickson [address] | | | | | [place], | [place], | | | | | [place] [address] | [place] [address] | | | | | [phone] | [phone] | | | | | | | [...] this encounter Miscellaneous Notes Telephone Encounter - Georgina Tanner ARNP - 08/14/2017 5:07 PM PDTCalled patient. She went to PCP and went to the ER and was given Ativan and fluids. She was told she had sinus tachycardia. She was sent home to observed. She has been directed to take Propranolol 10 mg extra that day as long as her blood pressur e is not too low. If she is having more issues with sinus tachycardia then she has been advise to get a hold of us and we will refer back to EP for evaluation. Electronically signed by: SINDHU Vang 08/14/2017 17:[address] - Elda Rosas - 08/14/2017 11:01 AM PDTPatient called wanting to know if the jesenia russell had heard from the Georgina Tanner yet. Informed her that she was still waiting for answ er and she would get a call back soon. Patient states That her pulse is now at 130 but when she was changing it went up to 168 for about 15-20 minutes elephone Encounter - Nilda Escalona RN - 08/14/2017 9:01 AM PDTGretchen called, she states that last night she was feeling anxious and jittery and her pulse was 97. This morning she woke up and her pulse is 130, she is again anxious an d jittery and getting a bit of a head ache. She has tried to rest and it comes down a bit b ut no lower than 117. She is having shortness of breath but not really any chest pain. I w ill consult Georgina and then let her know ...........................................Nilda Escalona RN on 08/14/17 at 9:03 documented in this encounter Plan of Treatment [...] | | | | | | [place] [address] | | | | | | [phone] | | | | | | | | +--------+---------+ + + + | 03/01/ | Office | Pulmonology | Mukul Clark MD | | | 2020 | Visit | | [address] | | | | | | [place] | | | | | | [address] | | | | | | | | +--------+---------+ + + + documented as of this encounter Visit Diagnoses Not on filedocumented in this encounter"
--- OUTSIDE RECORDS SUMMARY | ~2019-09-27 | XMS | Encounter Summary ---
Demographics + + + | Address | [address] | | | [place] [address] | + + + | Home Phone [...] Team Providers + +------+ + | Care Residential Air Sealing Technician Name | Role | Phone | [...] Description | +--------+--------+ + + + | 10/31/ | Refill | [facility] [place] | Kevin Sandoval, | Medication Refill | | 2013 | | PULMONARY [address] | MD [address] | | | | | [place], | [place] | | | | | [place] [address] | [address] | | | | | [phone] | | | +--------+--------+ + + + [...] [place] | | | | | | [id number] | | | | | | | | +--------+---------+ + + + | 11/24/ | Office | Cardiology | [place] | | | 2019 | Visit | | SINDHU Erickson [address] | | | | | | [place] | | | | | | [place] [address] | | | | | | [phone] | | | | | | | [...]
--- OUTSIDE RECORDS SUMMARY | ~2019-09-27 | XMS | Encounter Summary ---
Demographics + + + | Address | [address] | | | [place] [address] | + + + | Home Phone [...] Team Providers + +------+ + | Care Catalyst Impregnator Name | Role | Phone | + [...] + + | 05/06/ | Office | [facility] | [place], | Palpitations | | 2018 | Visit | CARDIOLOGY [address] | SINDHU Erickson [address] | (Primary Dx); Chest | | | | [place], | [place], | pain, unspecified | | | | [place] [address] | [place] [address] | type; Syncope, | | | | [phone] | [phone] | unspecified syncope | | | | [...] takes this da rigoberto Respiratory Therapy Supplies [facility] Please provide patient with necessary CPAP supplies ( she did not specify, okay to send order as appropriate) Diagnosis Code(s)327.23 . Length of Need 99 months. Please send order to [facility]. 1 each 0 Respiratory Therapy Supplies [...] reviewed during visit today primarily from [facility]: LIPID Lab Results Component Value [...] She was seen at the ED of [facility] 3 weeks ago and again 1 week [...] is in a class I-II o f [place] [employer] functional class. There is no [...] and v entricular function done at the [facility]. LVEF 78%. C. Holter Monitor 08/16/13 Underlying [...] this chart may have been created with [employer] voice recognition software. Occasi onal wrong-word or [...] 2019 | Visit | | [address] [facility] | | | | | | [place] | | | | | | [address] | | | | | | | | +--------+---------+ + + + | 11/24/ | Office | Cardiology | [place], | | | 2019 | Visit | | SINDHU Erickson [address] | | | | | | [place], | | | | | | [place] [address] | | | | | | [phone] | | | | | | | | +--------+---------+ + + + | 03/01/ | Office | Pulmonology | Mukul Clark MD | | | 2020 | Visit | | [address] | | | | | | [place] | | | | | | [address] | | | | | | | [...] | | | | | | CLAY SANCHEZ MD | | | | | | ([phone]) on 05/06/2017 | | | | | [...]
--- OUTSIDE RECORDS SUMMARY | ~2019-09-27 | XMS | Encounter Summary ---
Demographics + + + | Address | [address] | | | [place] [address] | + + + | Home Phone [...] Team Providers + +------+ + | Care Dispensary Technician Name | Role | Phone | + +------+ + | Ozzy Delcid MD | PCP | | + +------+ + Encounter Details +--------+ + + + + | Date | Type | Department | Care Team | Description | +--------+ + + + + | 10/08/ | Hospital | [facility] | [place], | | | 2011 | Encounter | [facility] LAB[facility] | Loreta Alonso MD | | | | | [address] | | | | | | [place] | | | | | | [address] | | | | | | [phone] | | | +--------+ + + + [...] | | | | | | [place] [address] | | | | | | [phone] | | | | | | | | +--------+---------+ + + + | 03/01/ | Office | Pulmonology | Mukul Clark MD | | | 2020 | Visit | | [address] | | | | | | [place] | | | | | | [address] | | | | | | | [...] performed on the [facility] | uIU/mL | [facility] | | | | [facility] | | MEDICAL | | | [...] | + + + + + | [facility] | [address] | [place], [place] | [phone] | | [facility] | | [address] | | | - LABORATORY | | | | + + + + + | [facility] | [address] | [place], [place] | | | [facility] | | [id number] [place] [address] | | | - LABORATORY | | | | + + + + + documented in this encounter Visit Diagnoses Not on filedocumented in this encounter"
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
--- OUTSIDE RECORDS SUMMARY | ~2019-09-27 | XMS | Encounter Summary ---
Demographics + + + | Address | [address] | | | [place] [address] | + + + | Home Phone [...] Providers + +------+ + | Care Director Nicu Name | Role | Phone | + [...] + + | 10/22/ | Office | [facility] | Andriy Amaya | Interstitial | | 2015 | Visit | [address] | MD Robert [address] | cystitis (Primary | | | | [place] | [place] | Dx); Pyuria | | | | [address] | [place] [address] | | | | | [phone] | [phone] | | | | | | | [...] via gravity per rosemary rosales and Dr. Amaya's order. Patient remained in the office for [...] Action Dose Route Administered By 10/23/2015 Given 20552 Units Subcutaneous Marysol Nunes RN lidocaine 2% [...] 2 weeks' time. Associated attestation - Andriy Amaya MD - 10/23/2015 12:08 PM PDTGretchen was giv en a DMSO treatment today, and tolerated it well. She will return in 2 weeks for her next i nstallation.documented in this encounter Miscellaneous Notes Addendum Note - Andriy Amaya MD - 10/23/2015 12:09 PM PDT Addended by: GEN Snow AMAYA on: 10/23/2015 12:09 Modules accepted: Level of Service documented in this encounter Plan of Treatment [...] [place] | | | | | | [address] | | | | | | | | +--------+---------+ + + + | 11/24/ | Office | Cardiology | [place] | | | 2019 | Visit | | SINDHU Erickson [address] | | | | | | [place] | | | | | | [place] [address] | | | | | | [phone] | | | | | | | | +--------+---------+ + + + | 03/01/ | Office | Pulmonology | Mukul Clark MD | | | 2020 | Visit | | [address] | | | | | | Jose [place] [facility] [place] | | | | | | [address] | | | | | | | [...] [address] | [place] | [phone] | | [facility] | | [address] | | | - LABORATORY | | | | + + + + + Urinalysis, Microscopic Only, with Culture if Indicated (10/23/2015 8:32 AM PDT) + + + + + + | Component | Value | Ref Range | Performed | Pathologist | | | | | At | Signature | + + + + + + | White Blood | 2-5 (A) | 0 - 2 /HPF | [facility] | | | Cells, | | | [facility] | | | Urine | | | MEDICAL | | | | | | CENTER - | | | | | | LABORATORY | | + + + + + + | White Blood | Few (A) | None Seen /HPF | [facility] | | | Cell | | | [facility] | | | Clumps, | | | MEDICAL | | | [...] + + + + | Squamous | >100 (A) | 0 - 2 /LPF | [facility] | | | Epithelial | | | [facility] | | | Cells, | | | MEDICAL | | | Urine | | | CENTER - | | | | | | LABORATORY | | + + + + + + | Bacteria, | 1+ (A) | Negative /HPF | [facility] | | | Urine | | | [facility] | | | | | | MEDICAL | | | | | | CENTER - | | | | | | LABORATORY | | + + + + + + | Mucus, | Present (A) | Negative /LPF | [facility] | | | Urine | [...] + + | TAN[facility] OLMEDO. | [address] | [place] | [phone] | | [facility] | | [address] | | | - LABORATORY | | [...] 1.001 - 1.030 | | | | [place], | | | | | | UA, [...]
--- OUTSIDE RECORDS SUMMARY | ~2019-09-27 | XMS | Encounter Summary ---
Demographics + + + | Address | [address] | | | [place] [address] | + + + | Home Phone [...] | | + + +---------+ + | Vhae Khan | ECON | Unknown | | + + +---------+ + Care Team Providers + +------+ + | Care Pole Framer Name | Role | Phone | + +------+ + | Juan Cherry DO | PCP | | + +------+ + Reason for Visit Diagnostic/Screening (Routine) +--------+--------+ + + + + | Status | Reason | Specialty | Diagnoses / | Referred By | Referred To | | | | | Procedures | Contact | Contact | +--------+--------+ + + + + | Closed | | Radiology | Diagnoses | Court, | [facility] | | | | | | Dio | JOIEE | | | | | Gastroesopha | MD Jesus | [facility] | | | | | geal reflux | [address] | MEDICAL | | | | | disease, | [address] | CENTER [address] | | | | | esophagitis | [address] | [place] | | | | | presence not | [place], [place] | [place], | | | | | specified | [address] | [place] [address] | | | | | Procedures | Phone: | Phone: | | | | | [place] Gastric | [phone] | [phone] | | | | | Emptying | Fax: | Fax: | | | | | | [phone] | [phone] | +--------+--------+ + + + + Encounter Details +--------+ + + + + | Date | Type | Department | Care Team | Description | +--------+ + + + + | 04/02/ | Hospital | [facility] | Dio Yun | | | 2017 | Encounter | MED CTR NUCLEAR | MD Jesus [address] | | | | | MEDICINE [address] | [place] [address] | | | | | [place], | [place], [place] | | | | | [place] [address] | [address] | | | | | [phone] | [phone] | | | | | | | [...] | | | | order to [facility]. | | | | | [...] | | | | | | | ([facility]) | | | | | | + [...] | 0 | 10/13/19 | | | Qxfimlevyg-TMEV-Cmfu | mouth as needed. | | | 16 | 7 | | -Cod [id number] MG | | | | | | [...] | | | | | | | ([facility]) | | | | | | + [...] | | | | | | [place] [address] | | | | | | [phone] | | | | | | | | +--------+---------+ + + + | 03/01/ | Office | Pulmonology | Mukul Clark MD | | | 2020 | Visit | | [address] | | | | | | [place] | | | | | | [address] | | | | | | | [...] + | Roger Mcbride Results In - 04/02/2016 11:38 AM [facility] NUCLEAR GASTRIC EMPTYING STUDY 04/02/2016 | | [...]
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
--- OUTSIDE RECORDS SUMMARY | ~2019-09-27 | XMS | Encounter Summary ---
Demographics + + + | Address | [address] | | | [place] [address] | + + + | Home Phone [...] Team Providers + +------+ + | Care Support Services Specialist Name | Role | Phone | + +------+ + | Juan Cherry DO | PCP | | + +------+ + Encounter Details +--------+ + + + + | Date | Type | Department | Care Team | Description | +--------+ + + + + | 12/17/ | Hospital | [facility] | Shashi Segovia | Therapeutic drug | | 2013 | Encounter | MED CTR LABORATORY | MD Miryam Need updated | monitoring | | | | [address] | address | | | | | [place] | | | | | | [address] | | | | | | [phone] | | | +--------+ + + + [...] | | | | | order to [facility]. | | | | | + [...] [place] | | | | | | [address] | | | | | | | | +--------+---------+ + + + | 11/24/ | Office | Cardiology | [place], | | | 2019 | Visit | | SINDHU Erickson [address] | | | | | | [place] | | | | | | [place] [address] | | | | | | [phone] | | | | | | | | +--------+---------+ + + + | 03/01/ | Office | Pulmonology | Mukul Clark MD | | | 2020 | Visit | | [address] | | | | | | [place] | | | | | | [phone] | | | | | | | [...] | non- | | mL/min/1.73m2 | [facility] | | | [place] | | | MEDICAL | | | [...] + | [facility] | [address] | [place], [place] | [phone] | | [facility] | | [address] | | | - LABORATORY | | | | + + + + + | [facility] | [address] | [place], [place] | | | [facility] | | [address] | | | - LABORATORY | | | | + + + + + CHANDLER (12/17/2013 2:05 PM PDT) + +-------+ + + + | Component | Value | Ref Range | Performed | Pathologist | | | | | At | Signature | + +-------+ + + + | BUN | 5 (L) | 7 - 18 mg/dL | [facility] | | | | | | ST. [...] + | [facility] | [address] | [place] | [phone] | | [facility] | | [address] | | | - LABORATORY | | | | + + + + + | [facility] | [address] | [place], [place] | | | [facility] | | [address], [facility] | | | - LABORATORY | | | | + + + + + documented in this encounter Visit Diagnoses + + | Diagnosis | + + | Therapeutic drug monitoring Encounter for therapeutic drug monitoring | + + documented in this encounter"
--- OUTSIDE RECORDS SUMMARY | ~2019-09-27 | XMS | Encounter Summary ---
Demographics + + + | Address | [address] | | | [place] [address] | + + + | Home Phone | | + + + | Preferred Language | Unknown | + + + | Marital Status | Single | + + + | Congregational Affiliation | 1041 | + + + | Race | Unknown | + + + | Ethnic Group | Unknown | + + + Author + + + | Author | [facility] | | | and [place] | + + + | Organization | [facility] | | | and [...] Team Providers + +------+ + | Care Foam Tank Laminator Name | Role | Phone | + +------+ + | Ozzy Delcid MD | PCP | | + +------+ + Encounter Details +--------+ + + + + | Date | Type | Department | Care Team | Description | +--------+ + + + + | 09/16/ | Hospital | [facility] | Yecenia Gallegos | | | 2011 | Encounter | MED CTR EMERGENCY | MD Yinka [address] | | | | | CENTER [address] | [facility], | | | | | [place] | [place] [address] | | | | | [address] | [phone] | | | | | [phone] | | | +--------+ + + + [...] encounter ED Notes Yecenia Gallegos MD - 09/17/2011 6:50 PM PDTDATE: 09/17/2011 PRIMARY CARE PHYSICIAN: Dr. Cherry. CHIEF COMPLAINT: Dizzy, disoriented and nauseated. HISTORY OF PRESENT ILLNESS: This is a 46-year-old female who comes to the emergency departm ent via Native [employer]. The patient indicates she woke this morning with a sense of feeling lightheaded and nause ated with head movement. She had a sense of "near fainting." She desc ribes this less like dizziness m ore like a faintness. She indicates she has had visual pro blems. She describes feeling increased "zayda ghtness." She slept intermittently throughout t day but is not feeling any better. She has mild lef t-sided headache. She indicates she was treated last week by Dr. Cherry for a sinus infection with amoxicillin. She has no i geovany what may be causing her symptoms, so she came in for evaluation. She de nies any recent medication changes or adjustments up or down. PAST MEDICAL HISTORY: Fibromyalgia, osteoarthritis, previous hysterectomy, umbilical hernio rrhaphy, s easonal allergies. MEDICATIONS 1. Cymbalta. 2. Neurontin for "fibromyalgia." 3. Levofloxican. 4. Tramadol. 5. Geodon. 6. Something for seasonal allergies that she does not know the name of, possibly Singular. ALLERGIES 1. ERYTHROMYCIN. 2. MEPERIDINE. 3. NSAIDS. REVIEW OF SYSTEMS: No measured fever. Her sinus symptoms are improved. She has not had any actual syn cope. SOCIAL HISTORY: The patient does smoke. 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 PHYSICAL EXAMINATION VITAL SIGNS: Temp 99.1, respirations 16, heart rate 64, blood pressure 106/42, O2 saturatio n 95% room air, 56 kg. GENERAL: A thin female. SKIN: Warm, dry, no diaphoresis. HEENT: Head is normocephalic, atraumatic. Pupils equal, round, reactive to light. There is no nystagm us, including in the mid point or end points bilaterally. Extraocular movements are intact. Tympanic membranes are clear bilaterally. No mucopurulent nasal discharge. No t onsillar erythema or exudate. HEART: Regular rate and rhythm. No murmur. LUNGS: Clear to auscultation throughout bilaterally. NEUROLOGIC: The patient is awake, however, she lies mostly with her eyes closed and curled up. She do es not have any focal deficits. She does not have any ataxia. EMERGENCY DEPARTMENT COURSE: The patient complains of nausea, a sense of near fainting. She was treat ed here with Zak followed by some kulwinder and rechecked. She was feeling m arkedly improved foll owing that ahead and prescribed that to her. Her symptoms as reported were not necessarily sp inning sensation. She does have nystagmus present on clini eloy exam. However, she improved with the ab ove. She was given a note off of work and I wi ll have her continue her usual medications. any recent medication adjustment that might have resulted in the adverse effects. She denies any diar tessa after the amoxicillin course, and there has not been any vomiting or reason for volume contracti on. Basic metab olic panel was checked and was within normal limits. We will have the patient follow up in her outpatient clinic for recheck if she does not seem to be improving. IMPRESSION NAUSEA AND LIGHTHEADEDNESS. DICTATED BY: Yecenia Gallegos MD Emergency Medicine JOB #: [id number] EXT JOB #:[id number] <Electronicall y Signed by Yecenia Gallegos MD> 10/06/11 1343 documented in this encounter Plan of Treatment [...] | | 2019 | Visit | | SINDUH Erickson [address] | | | | | | [place] | | | | | | [place] [address] | | | | | | [phone] | | | | | | | | +--------+---------+ + + + | 03/01/ | Office | Pulmonology | Mukul Clark MD | | | 2020 | Visit | | [address] | | | | | | [place] | | | | | | [id number] | | | | | | | | +--------+---------+ + + + documented as of this encounter Procedures + +--------+ + + + | Procedure Name | Priori | Date/Time | Associated Diagnosis | Comments | | | ty | | | | + +--------+ + + + | BASIC METABOLIC | Routin | 09/17/2011 | | Results for this | | PANEL | e | 7:57 PM | | procedure are in the | | | | PDT | | results section. | + +--------+ + + + documented in this encounter Results Basic Metabolic Panel (09/17/2011 7:57 PM PDT) + + + + + + | Component | Value | Ref Range | Performed | Pathologist | | | | | At | Signature | + + + + + + | Glucose | 99 | 70 - 109 mg/dL | [facility] [...] + + + + | BUN | 8 | 7 - 18 mg/dL | [facility] | | | | | | [facility] | | | | | | MEDICAL | | | | | | CENTER - | | | | | | LABORATORY | | + + + + + + | Creatinine | 0.61 | 0.60 - 1.30 | [facility] | [...] + + + + | BUN/Creatin | 13.1 | 12 - 20 | [facility] | | | ine Ratio | | | [facility] | | | | | | MEDICAL | | | | | | CENTER - | | | | | | LABORATORY | | + + + + + + | Na | 137 | 136 - 149 mEq/L | [facility] | | | | | | [facility] | | | | | | MEDICAL | | | | | | CENTER - | | | | | | LABORATORY | | + + + + + + | K | 3.5 | 3.5 - 5.1 mEq/l | [facility] [...] CO2 | 25 | 24 - 31 mEq/L | [facility] | | | | | | [facility] | | | | | | MEDICAL | | | | | | CENTER - | | | | | | LABORATORY | | + + + + + + | Anion Gap | 7.5 | 6.0 - 17.0 | [facility] | | | | | [...] [address] | [place] | [phone] | | [facility] | | [address] | | | - LABORATORY | | | | + + + + + | T[facility] OLMEDO. | [address] | [place] | | | [facility] | | [address] | | | - LABORATORY | | | | + + + + + documented in this encounter Visit Diagnoses Not on filedocumented in this encounter
--- OUTSIDE RECORDS SUMMARY | ~2019-09-27 | XMS | Encounter Summary ---
Demographics + + + | Address | [address] | | | [place] [address] | + + + | Home Phone [...] Team Providers + +------+ + | Care Treasury Consultant Name | Role | Phone | [...] + + | 07/19/ | Telephone | [facility] | Kevin Sandoval, | Other (medication | | 2015 | | PULMONARY [address] | MD [address] | request) | | | | [place], | [place], [place] | | | | | [place] [address] | [address] | | | | | [phone] | | | +--------+ + + + [...] [place] | | | | | | [address] | | | | | | | | +--------+---------+ + + + | 11/24/ | Office | Cardiology | [place], | | | 2019 | Visit | | SINDHU Erickson [address] | | | | | | [place], | | | | | | [place] [address] | | | | | | [phone] | | | | | | | [...]
--- OUTSIDE RECORDS SUMMARY | ~2019-09-27 | XMS | Encounter Summary ---
Demographics + + + | Address | [address] | | | [place] [address] | + + + | Home Phone [...] Team Providers + +------+ + | Care Profiling Machine Operator Name | Role | Phone [...] Description | +--------+--------+ + + + | 02/20/ | Refill | [facility] | Andriy Weber | Medication Refill | | 2016 | | [address] | MD [address] | | | | | [place] | [place] | | | | | [address] | [place] [address] | | | | | [phone] | [phone] | | | | | | | [...] | | | | | | [place] [address] | | | | | | [phone] | | | | | | | [...]
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
--- OUTSIDE RECORDS SUMMARY | ~2019-09-27 | XMS | Encounter Summary ---
Demographics + + + | Address | [address] | | | [place] [address] | + + + | Home Phone [...] Team Providers + +------+ + | Care Monorail Hooker Name | Role | Phone | + [...] + + | 06/02/ | Office | [facility] | Andriy Weber | Pyuria (Primary Dx) | | 2018 | Visit | [address] | MD [address] | | | | | [place] | [place] | | | | | [address] | [place] [address] | | | | | [phone] | [phone] | | | | | | | [...] a past medical history of Adrenal insufficiency ([facility]); Anxiety; Asthma; Benign neop lasm of pituitary gland and craniopharyngeal duct (pouch) ([facility]) (10/28/2012); Bilateral renal cysts; Complex sleep apnea syndrome; COPD (chronic obstructive pulmonary disease) ([facility]) (201 2); Depression; Diverticulitis; Diverticulosis; Emphysema; Fibromyalgia; [...] takes this da rigoberto Respiratory Therapy Supplies [facility] Please provide patient with necessary CPAP supplies ( she did not specify, okay to send order as appropriate) Diagnosis Code(s)327.23 . Length of Need 99 months. Please send order to [facility]. 1 each 0 Respiratory Therapy Supplies [facility] Change CPAP back to 11-14 cm H2O. All necessary suppl ies. No oxygen bleed in. Diagnosis Code(s)327.23. Length of Need: Lifetime. Please send orde r to [facility]. This is not a new order, [...] urethra was dilated today to a 26 Czech with Ewa sounds. She tolerated this wel l without [...] underwent a urethral dilatation to a 26 Czech in size. I've asked her to call [...] This document was generated in part using [employer] voice recognition software. Although ever y effort is made to edit the content, profile shaper operator errors may occur. Occasional wrong word or sound alike substitutions may have occurred due to the inherent limitations of the voice recognition software. Please read the chart carefully and recognize, using context, where raven substitutions may have occurred. documented in is encounter Plan of Treatment +--------+---------+ + [...] | | | | | | [place] [address] | | | | | | [phone] | | | | | | | | +--------+---------+ + + + | 03/01/ | Office | Pulmonology | Mukul Clark MD | | | 2020 | Visit | | [address] | | | | | | [place] | | | | | | [address] | | | | | | | [...] 1.001 - 1.030 | | | | [place], | | | | | | [facility], [...]
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
--- OUTSIDE RECORDS SUMMARY | ~2019-09-27 | XMS | Encounter Summary ---
Demographics + + + | Address | [address] | | | [place] [address] | + + + | Home Phone [...] Team Providers + +------+ + | Care Strip Presser Name | Role | Phone | + +------+ + | Juan Cherry DO | PCP | | + +------+ + Encounter Details +--------+ + + + + | Date | Type | Department | Care Team | Description | +--------+ + + + + | 12/17/ | Hospital | [facility] | Shashi Segovia | Therapeutic drug | | 2013 | Encounter | MED CTR LABORATORY | MD Miryam Need updated | monitoring | | | | [address] | address | | | | | [place] | | | | | | [address] | | | | | | [phone] | | | +--------+ + + + [...] | | | | order to [facility]. | | | | | + [...] | | | | send order to [facility] | | | [...] [place] | | | | | | [address] | | | | | | | | +--------+---------+ + + + | 11/24/ | Office | Cardiology | [place], | | | 2019 | Visit | | SINDHU Erickson [address] | | | | | | [place] | | | | | | [place] [address] | | | | | | [phone] | | | | | | | | +--------+---------+ + + + | 03/01/ | Office | Pulmonology | Mukul Clark MD | | | 2020 | Visit | | [address] | | | | | | [place] | | | | | | [phone] | | | | | | | [...] mL/min/1.73m2 | [facility] | | | [place] | | | MEDICAL | | | [...] + | [facility] | [address] | [place], [place] | [phone] | | [facility] | | [address] | | | - LABORATORY | | | | + + + + + | [facility] | [address] | [place], [place] | | | [facility] | | [address] | | | - LABORATORY | [...] + | [facility] | [address] | [place] | [phone] | | [facility] | | [address] | | | - LABORATORY | | | | + + + + + | [facility] | [address] | [place], [place] | | | [facility] | | [address], [facility] | | | - LABORATORY | | | | + + + + + documented in this encounter Visit Diagnoses + + | Diagnosis | + + | Therapeutic drug monitoring Encounter for therapeutic drug monitoring | + + documented in this encounter"
--- OUTSIDE RECORDS SUMMARY | ~2019-09-27 | XMS | Encounter Summary ---
Demographics + + + | Address | [address] | | | [place] [address] | + + + | Home Phone [...] Team Providers + +------+ + | Care Doctor Assistant Name | Role | Phone | + +------+ + PCP | Unavailable | + +------+ + Encounter Details +--------+ + + + + | Date | Type | Department | Care Team | Description | +--------+ + + + + | 10/15/ | Hospital | [facility] GENER[facility] OP | Berna Vizcaino MD | Dizziness; | | 2010 | Encounter | CONVERSION DEP [address] | [address] | [place]; | | | | [address] | [place] [address] | [place] | | | | [place], [place] | [phone] | | | | | [address] | | | | | | [phone] | | | +--------+ + + + [...] | | | | | | [place] [address] | | | | | | [phone] | | | | | | | | +--------+---------+ + + + | 03/01/ | Office | Pulmonology | Mukul Clark MD | | | 2020 | Visit | | [address] | | | | | | [place] | | | | | | [address] | | | | | | | | +--------+---------+ + + + documented as of this encounter Procedures + +--------+ + + + | Procedure Name | Priori | Date/Time | Associated Diagnosis | Comments | | | ty | | | | + +--------+ + + + | CELL COUNT WITH | Routin | 10/15/2010 | | Results for this | | DIFFERENTIAL, CSF | e | 2:18 PM | | procedure are in the | | | | PDT | | results section. | + +--------+ + + + | FL LUMBAR PUNCTURE | Routin | 10/15/2010 | | Results for this | | DIAGNOSTIC | e | 11:12 AM | | procedure are in the | | | | PDT | | results section. | + +--------+ + + + | CULTURE, VIRUS | Routin | 10/15/2010 | | Results for this | | | e | 11:11 AM | | procedure are in the | | | | PDT | | results section. | + +--------+ + + + | CULTURE, CSF, SMEAR | Routin | 10/15/2010 | | Results for this | | | e | 11:11 AM | | procedure are in the | | | | PDT | | results section. | + +--------+ + + + | PROTEIN, CSF | Routin | 10/15/2010 | | Results for this | | | e | 11:11 AM | | procedure are in the | | | | PDT | | results section. | + +--------+ + + + | GLUCOSE, CSF | Routin | 10/15/2010 | | Results for this | | | e | 11:11 AM | | procedure are in the | | | | PDT | | results section. | + +--------+ + + + documented in this encounter Results Cell Count with Differential, CSF (10/15/2010 2:18 PM PDT) + + | Specimen | + + | | + + + + + | Narrative | Performed At | + + + | COLOR COLORLESS | EXTERNAL LAB | | Testing performed at [facility];[address] [facility];[place] [address] APPEARANCE | | | CLEAR Testing performed at | | | [facility];[address] [facility];[place] [address] Tube Number, CSF | | | 1 Testing performed at [facility];[address] [facility] | | | Bl;[place] [address] CSF RBC | | | 0 Testing performed at [facility];[address] [place] [address];[place], [place] | | | [address] CSF WBC 0 | | | Testing performed at [facility];[address] [place] [address];[place] [address] | | + + + + +---------+ + + | Performing | Address | City/State/Zipcode | Phone Number | | Organization | | | | + +---------+ + + | EXTERNAL LAB | | | | + +---------+ + + FL Lumbar Puncture Diagnostic (10/15/2010 11:12 AM PDT) + + | Specimen | + + | | + + + + + | Narrative | Performed At | + + + | [facility] [address] Ph: | | | Patient Name: JADYN SCHMITZ Date of : | | | 1965 Medical Record: [id number] Account: [id number] | | | Exam Date/Time: 10/15/2010 10:15 Ordering | | | Physician: BERNA VIZCAINO Order Detail: [id number] Exam Description: XR | | | LUMBAR PUNCTURE DIAGNOS FLUORO | | | | | | PROCEDURE Diagnostic lumbar puncture under fluoroscopic guidance. | | | HISTORY 45 year old female with a history of dizziness, double | | | vision and headache. PRE PROCEDURAL LABORATORY DATA Labs | | | performed earlier today reveal a platelet count of 258,000, INR 1.0 | | | and aPTT was 30 [address] DI[address] IM[address] DATA [address] scan of the | | | head performed on October [address] oMnroe and revealed | | | no contraindication to lumbar puncture. ALLERGIES NKDA | | | MEDICATION ADMINISTERED: Lidocaine 1% with sodium bicarb for local | | | anesthesia DESCRIPTION OF PROCEDURE I met this patient in the | | | [facility] [employer] holding room. The patient was awake, alert, oriented times | | | 3, and in no acute distress. We had a discussion about the | | | procedure, the risks involved, and the alternatives. The patient | | | verbalized understanding of this and their desire was to proceed with | | | the procedure. Therefore, written informed consent was obtained. | | | A preprocedure pause timeout was performed verifying the procedure, | | | site, and the patient; all members of the team are in agreement. | | | The patient placed in the prone position on the fluoroscopy table. A | | | suitable site for lumbar puncture at level L4 was selected. The skin | | | of the back was prepped with Betadine circular scrubs and draped. | | | Local anesthesia was obtained with lidocaine 1% and sodium bicarb, | | | with good affect. Under intermittent fluoroscopic observation a | | | 22-gauge spinal needle was gradually advanced. There was return of | | | clear colorless cerebrospinal fluid, approximately 12 mL was obtained | | | and distributed into 4 sterile vials. This was sent to the | | | laboratory. When 12 mL was obtained, the procedure was terminated, | | | needle was withdrawn, and a Band-Aid dressing was applied. The | | | patient tolerated the procedure well. No procedural complications were | | | encountered. Total fluoroscopy time was 0.3 minutes. | | | IMPRESSION Successful Diagnostic lumbar puncture under fluoroscopy. | | | No procedural complications encountered. | | + + + + + | Procedure Note | + + | Roger Mcbride Conversion - 10/17/2018 5:21 PM PDT | | [facility] | | [facility][note 2] [id number] | | | | | | Patient Name: JADYN SCHMITZ | | Date of : 1965 | | Medical Record: [id number] | | Account: [id number] | | | | | | Exam Date/Time: 10/15/2010 10:15 | | Ordering Physician: BERNA VIZCAINO | | Order Detail: [id number] | | Exam Description: XR LUMBAR PUNCTURE DIAGNOS FLUORO | | | | PROCEDURE | | Diagnostic lumbar puncture under fluoroscopic guidance. | | | | HISTORY | | 45 year old female with a history of dizziness, double vision and headache. | | | | PRE PROCEDURAL LABORATORY DATA | | Labs performed earlier today reveal a platelet count of 258,000, INR 1.0 | | and aPTT was 30 seconds. | | | | DIAGNOSTIC IMAGING DATA | | CT scan of the head performed on October [address] Monroe and | | revealed no contraindication to lumbar puncture. | | | | ALLERGIES | | NKDA | | | | MEDICATION ADMINISTERED: | | Lidocaine 1% with sodium bicarb for local anesthesia | | | | DESCRIPTION OF PROCEDURE | | I met this patient in the [facility] [employer] holding room. The patient was awake, | | alert, oriented times 3, and in no acute distress. We had a discussion | | about the procedure, the risks involved, and the alternatives. The patient | | verbalized understanding of this and their desire was to proceed with the | | procedure. Therefore, written informed consent was obtained. | | | | A preprocedure pause timeout was performed verifying the procedure, site, | | and the patient; all members of the team are in agreement. | | | | The patient placed in the prone position on the fluoroscopy table. A | | suitable site for lumbar puncture at level L4 was selected. The skin of the | | back was prepped with Betadine circular scrubs and draped. Local anesthesia | | was obtained with lidocaine 1% and sodium bicarb, with good affect. Under | | intermittent fluoroscopic observation a 22-gauge spinal needle was | | gradually advanced. There was return of clear colorless cerebrospinal | | fluid, approximately 12 mL was obtained and distributed into 4 sterile | | vials. This was sent to the laboratory. When 12 mL was obtained, the | | procedure was terminated, needle was withdrawn, and a Band-Aid dressing was | | applied. | | | | The patient tolerated the procedure well. No procedural complications were | | encountered. | | | | Total fluoroscopy time was 0.3 minutes. | | | | IMPRESSION | | Successful Diagnostic lumbar puncture under fluoroscopy. No procedural | | complications encountered. | | | | | + + Culture Virus (10/15/2010 11:11 AM PDT) + + | Specimen | + + | | + + + + + | Narrative | Performed At | + + + | MICRO SPECIMEN SOURCE CEREBROSPINAL FLUID | EXTERNAL LAB | | Testing performed at [facility];[address] [place] [address];[place] [address] VIRAL | | | CULTURE ACCESSION NO. | | | [id number] SPECIMEN SOURCE | | | CEREBROSPINAL FLUID RESULT | | | PRELIMINARY: NO VIRUS ISOLATED AT 7 | | | DAYS. | | | FINAL: NO VIRUS ISOLATED AT 14 DAYS. Testing performed at | | | [address] [address] VIRAL CULTURE,STATUS | | | REPORT STATUS FINAL | | | 10/30/2010 Testing performed at [facility], [address] [place] [address] | | | [address] | | + + + + +---------+ + + | Performing | Address | City/State/Zipcode | Phone Number | | Organization | | | | + +---------+ + + | EXTERNAL LAB | | | | + +---------+ + + Culture, CSF, Smear (10/15/2010 11:11 AM PDT) + + | Specimen | + + | | + + + + + | Narrative | Performed At | + + + | Specimen Description CEREBROSPINAL FLUID | EXTERNAL LAB | | Testing performed at | | | [facility];[address] [facility];[place] [address] GRAM STAIN | | | NO CELLS OR ORGANISMS SEEN | | | Testing performed at [facility], [address] [place] [address] | | | [place] [address] CULTURE | | | NO GROWTH 3 DAYS | | | Testing performed at [facility], [address] [place], [place] [address], | | | [place] [address] REPORT STATUS 10/18/2010 | | | FINAL | | + + + + +---------+ + + | Performing | Address | City/State/Zipcode | Phone Number | | Organization | | | | + +---------+ + + | EXTERNAL LAB | | | | + +---------+ + + Protein, CSF (10/15/2010 11:11 AM PDT) + + | Specimen | + + | | + + + + + | Narrative | Performed At | + + + | CSF TOTAL PROTEIN 21 Testing | EXTERNAL LAB | | performed at [facility];[address] [facility];[place] [address] | | + + + + +---------+ + + | Performing | Address | City/State/Zipcode | Phone Number | | Organization | | | | + +---------+ + + | EXTERNAL LAB | | | | + +---------+ + + Glucose, CSF (10/15/2010 11:11 AM PDT) + + | Specimen | + + | | + + + + + | Narrative | Performed At | + + + | CSF GLUCOSE 64 | EXTERNAL LAB | | Testing performed at [facility];[address] [facility];[place] [address] | | + + + + +---------+ + + | Performing | Address | City/State/Zipcode | Phone Number | | Organization | | | | + +---------+ + + | EXTERNAL LAB | | | | + +---------+ + + documented in this encounter Visit Diagnoses + + | Diagnosis | + + | Dizziness Dizziness and giddiness | + + | Headache(784.0) Headache | + + | Diplopia | + + documented in this encounter"
--- OUTSIDE RECORDS SUMMARY | ~2019-09-27 | XMS | Encounter Summary ---
Demographics + + + | Address | [address] | | | [place] [address] | + + + | Home Phone [...] Team Providers + +------+ + | Care Title Inspector Name | Role | Phone | [...] | | | | | pulmonary | [address] | [address] | | | | | disease, | [place], | [address] [place] | | | | | unspecified | [place] [address] | [place], [place] | | | | | COPD type | Phone: | [address] | | | | | (HCC) | [phone] | Phone: | | | | | Pulmonary | Fax: | [phone] | | | | | emphysema, | [phone] | Fax: | | | | | unspecified | | [phone] | | | | | emphysema | | | | | | | type ([facility]) | | | +--------+ + + + + + Encounter Details +--------+---------+ + + + | Date | Type | Department | Care Team | Description | +--------+---------+ + + + | 05/23/ | Office | [facility] | Sharonda Delmycaitie, | Chronic obstructive | | 2017 | Visit | MED CTR CARDIAC | [address] | pulmonary disease, | | | | REHABILITATION [address], | unspecified COPD | | | | [address] [place] | [place] [address] | type (HCC) (Primary | | | | [place] [address] | [phone] | Dx) | | | | [phone] | | | +--------+---------+ + + + [...] Desean Wheeler - 05/23/2016 3:07 PM PDT [facility] CTR CARDIAC REHABILITATION [address] [place] [address] Cardiac Rehab Date: 05/23/2016 Patient Information Patient [...] [place] | | | | | | [address] | | | | | | | | +--------+---------+ + + + | 11/24/ | Office | Cardiology | [place], | | | 2019 | Visit | | SINDHU Erickson [address] | | | | | | [place], | | | | | | [place] [address] | | | | | | [phone] | | | | | | | | +--------+---------+ + + + | 03/01/ | Office | Pulmonology | Mukul Clark MD | | | 2020 | Visit | | [address] | | | | | | [place] | | | | | | [address] | | | | | | | | +--------+---------+ + + + documented as of this encounter Visit Diagnoses + + | Diagnosis | + + | Chronic obstructive pulmonary disease, unspecified COPD type (HCC) - Primary | + + documented in this encounter"
--- OUTSIDE RECORDS SUMMARY | ~2019-09-27 | XMS | Encounter Summary ---
Demographics + + + | Address | [address] | | | [place] [address] | + + + | Home Phone [...] Team Providers + +------+ + | Care Char Filter Tank Tender Name | Role | Phone | + +------+ + | Juan Cherry DO | PCP | | + +------+ + Encounter Details +--------+ + + + + | Date | Type | Department | Care Team | Description | +--------+ + + + + | 03/05/ | Hospital | [facility] | Conversion | Pain | | 2017 | Encounter | CONVERSION DEP [address] | Transaction, | | | | | [address] | Provider Unknown | | | | | [place], [place] | [phone] | | | | | [address] | | | | | | [phone] | | | +--------+ + + + [...] | | | | | order to [facility]. | | | | | + [...] | | | | | [facility]. | | | | | | [...] | | | | | | | ([facility]) | | | | [...] | 0 | 10/13/19 | | | Begalbuziw-RELZ-Begd | mouth as needed. | | | 16 | 7 | | -Cod [id number] MG | | | | | | [...] | | | | | | | ([facility]) | | | | [...] | UNABLE TO FIND | Med Name: DLEMY Use | | 0 | | | [...] [place] | | | | | | [address] | | | | | | | | +--------+---------+ + + + | 11/24/ | Office | Cardiology | [place], | | | 2019 | Visit | | SINDHU Erickson [address] | | | | | | [place], | | | | | | [place] [address] | | | | | | [phone] | | | | | | | | +--------+---------+ + + + | 03/01/ | Office | Pulmonology | Mukul Clark MD | | | 2020 | Visit | | [address] | | | | | | [place] | | | | | | [address] | | | | | | | [...] + + | Roger Mcbride Maureen - 10/07/2018 8:01 PM PDT This is a non-reportable procedure | | without a radiologist report and isused for image storage only | + + documented in this encounter Visit Diagnoses + + | Diagnosis | + + | Pain Generalized pain | + + documented in this encounter
--- OUTSIDE RECORDS SUMMARY | ~2019-09-27 | XMS | Encounter Summary ---
Demographics + + + | Address | [address] | | | [place] [address] | + + + | Home Phone [...] Providers + +------+ + | Care Supervisor Drawing Name | Role | Phone | + +------+ + | Juan Cherry DO | PCP | | + +------+ + Encounter Details +--------+ + + + + | Date | Type | Department | Care Team | Description | +--------+ + + + + | 02/26/ | Hospital | [facility] | Dio Yun | Dysphagia, | | 2017 | Encounter | MED CTR XRAY [address] | [address] | unspecified type | | | | [place] | [address] | | | | | [place] [address] | [place], [place] | | | | | [phone] | [address] | | | | | | [phone] | | | | | | | | | | | | Rad, [facility] | | +--------+ + + + + [...] | | | | order to [facility]. | | | | | + [...] | | | | send order to [facility] | | | | | | | [facility]. | | | | | | | [...] | | | | | ([facility]) | | | | | | + + + +---------+ + + | B-D 3CC JOELLE-UYEN | | | 0 | 09/13/19 | | | SYR 25GX1/2" 25G X | | | | 16 | 7 | | 1-/2" 3 ML MISC | | | | | | + + + +---------+ + + | | Take 1 capsule by | | 0 | 10/13/19 | | | Txvnikmwbm-RBDE-Unyl | mouth as needed. | | | 16 | 7 | | -Cod [id number] MG | | | | | | [...] | | | | | ([facility]) | | | | | | + [...] 2020 | Visit | | [address] | | | | | | [place] | | | | | | [address] | | | | | | | | +--------+---------+ + + + | 11/24/ | Office | Cardiology | [place], | | | 2019 | Visit | | SINDHU Erickson [address] | | | | | | [place], | | | | | | [place] [address] | | | | | | [phone] | | | | | | | | +--------+---------+ + + + | 03/01/ | Office | Pulmonology | Mukul Clark MD | | | 2020 | Visit | | [address] | | | | | | [place] | | | | | | [phone] | | | | | | | | +--------+---------+ + + + documented as of this encounter Procedures + +--------+ + + + | Procedure Name | Priori | Date/Time | Associated Diagnosis | Comments | | | ty | | | | + +--------+ + + + | FL UGI | Routin | 02/27/2016 | Dysphagia, | Results for this | | | e | 8:46 AM | unspecified type | procedure are in the | | | | PST | | results section. | + +--------+ + + + documented in this encounter Results [place] UGI (02/27/2016 8:46 AM PST) + + | Specimen | + + | | + + + + + | Narrative | Performed At | + + + | [place] UGI 02/27/2016 8:45 AM HISTORY: Dysphagia, unspecified type. | [facility] | | COMPARISON: None. PROTOCOL: The patient was administered | | | effervescent crystals initially followed by oral barium. Fluoroscopic | | | images of the esophagus and stomach region were obtained. | | | FINDINGS: The esophagus demonstrates a normal mucosal pattern and | | | shape. There is normal emptying into the stomach. The stomach has a | | | normal mucosal pattern and shape. There is brisk emptying into the | | | small bowel. Duodenal bulb and sweep are normal. No evidence of | | | hiatal hernia. Tertiary esophageal dysmotility contractions were | | | seen throughout the mid and distal esophagus. Questionable mild | | | gastroesophageal reflux seen which is difficult to evaluate due to | | | the presence of residual contrast in the distal esophagus. | | | IMPRESSION - Tertiary esophageal dysmotility contractions were seen | | | throughout the mid and distal esophagus. Questionable mild | | | gastroesophageal reflux seen which is difficult to evaluate due to | | | the presence of residual contrast in the distal esophagus. | | | Dictated and Signed by: Pb Bowden MD Electronically signed: | | | 02/27/2016 9:15 AM | | + + + + + | Procedure Note | + + | Reed, Rad Results In - 02/27/2016 9:19 AM PST [place] UGI 02/27/2016 8:45 AM | | | | HISTORY: Dysphagia, unspecified type. | | | | COMPARISON: None. | | | | PROTOCOL: The patient was administered effervescent crystals initially followed | | by oral barium. Fluoroscopic images of the esophagus and stomach region were | | obtained. | | | | FINDINGS: | | The esophagus demonstrates a normal mucosal pattern and shape. There is normal | | emptying into the stomach. The stomach has a normal mucosal pattern and shape. | | There is brisk emptying into the small bowel. Duodenal bulb and sweep are | | normal. No evidence of hiatal hernia. | | | | Tertiary esophageal dysmotility contractions were seen throughout the mid and | | distal esophagus. Questionable mild gastroesophageal reflux seen which is | | difficult to evaluate due to the presence of residual contrast in the distal | | esophagus. | | | | IMPRESSION - | | Tertiary esophageal dysmotility contractions were seen throughout the mid and | | distal esophagus. | | | | Questionable mild gastroesophageal reflux seen which is difficult to evaluate | | due to the presence of residual contrast in the distal esophagus. | | | | Dictated and Signed by: Pb Bowden MD | | Electronically signed: 02/27/2016 9:15 AM | + + + +---------+ + + | Performing | Address | City/State/Zipcode | Phone Number | | Organization | | | | + +---------+ + + | [facility] | | | | + +---------+ + + documented in this encounter Visit Diagnoses + + | Diagnosis | + + | Dysphagia, unspecified type | + + documented in this encounter
--- OUTSIDE RECORDS SUMMARY | ~2019-09-27 | XMS | Encounter Summary ---
Demographics + + + | Address | [address] | | | [place] [address] | + + + | Home Phone [...] + + | 03/04/ | Hospital | [facility] | Jason Carvajal, | | | 2010 - | Encounter | MED CTR MED ONC | [address] | | | | | [address] | [address] [place] | | | 03/06/ | | [place] [address] | [address] | | | 2010 | | [phone] | | | +--------+ + + + [...] | Office | Sleep Medicine | Meghan aGrcia MD | | | 2019 | Visit | | [address] | | | | | | [place] | | | | | | [address] | | | | | | | | +--------+---------+ + + + | 11/24/ | Office | Cardiology | [place], | | | 2019 | Visit | | SINDHU Erickson [address] | | | | | | [place], | | | | | | [place] [address] | | | | | | [phone] | | | | | | | | +--------+---------+ + + + | 03/01/ | Office | Pulmonology | Mukul Clark MD | | | 2020 | Visit | | [address] | | | | | | [place] | | | | | | [address] | | | | | | | | +--------+---------+ + + + documented as of this encounter Visit Diagnoses Not on filedocumented in this encounter"
--- OUTSIDE RECORDS SUMMARY | ~2019-09-27 | XMS | Encounter Summary ---
Demographics + + + | Address | [address] | | | [place] [address] | + + + | Home Phone [...] Team Providers + +------+ + | Care Spiritual Counselor Name | Role | Phone | + +------+ + | Juan Cherry DO | PCP | | + +------+ + Reason for Visit + + + | Reason | Comments | + + + | Follow-up | Tachyarrhythmia | + + + | Results | 48 hour Holter monitor 08/12/2013 ([facility]) | + + + | Palpitations | | + + + Encounter Details +--------+ + + + + | Date | Type | Department | Care Team | Description | +--------+ + + + + | 10/05/ | Off-Site | [facility] [place] | Jared Mcdonough, | Palpitations | | 2013 | Visit | CARDIOLOGY [address] | [address] [place] | (Primary Dx); | | | | [place], | [place], | Paroxysmal atrial | | | | [place] [address] | [place] [address] | tachycardia (HCC) | | | | [phone] | [phone] | | | | | | | [...] + documented as of this encounter Progress Jared Flynn MD - 10/05/2013 11:24 AM PDTFormatting of this note might be different f rom the original. PATIENT NAME: Rosario Malik : 1965: AGE: 48 y.o. 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 Patient denies chest [...] sleep apnea COPD (chronic obstructive pulmonary disease) ([facility]LY [facility]) Healthcare maintenance Preventative health care GARRY (obstructive sleep apnea) Multiple personality disorder GERD (gastroesophageal reflux disease) Diverticulosis Insomnia Sprain of chest wall Benign neoplasm of pituitary gland and craniopharyngeal duct (pouch) (FORM[facility]LY [facility]) Status post total hysterectomy Irritable colon Hypoxemia ([facility]) Allergic rhinitis Tachycardia Palpitations Tachyarrhythmia CURRENT MEDICATIONS [...] Take by mouth Daily. Respiratory Therapy Supplies [facility] Incentive spirometer. Please provide instructions in use. Dx: 848.8 MADELEINE: 3 months 1 each 99 Respiratory Therapy Supplies MISC Please provide patient with necessary CPAP supplies ( she did not specify, okay to send order as appropriate) Diagnosis Code(s)327.23 . Length of Need 99 months. Please send order to [facility]. 1 each 0 Respiratory Therapy Supplies MISC Change CPAP back to 11-14 cm H2O. All necessary suppl ies. No oxygen bleed in. Diagnosis Code(s)327.23. Length of Need: Lifetime. Please send orde r to [facility]. This is not a new [...] ventricular function don e at the [facility]. LVEF 78%. C. Holter Monitor [...] She is in a class II of [place] [employer] functional class. There is [...] patient will be referred to Dr. Ding, community education specialist at [facility] for PAT ablati on 3. Followup in 3 months Electronically signed by: Jared Mcdonough MD [facility] 10/05/2013 11:25 Portions of this chart may have been created with Impact voice recognition software. Occasi onal wrong-word or [...] ST | | | | | | [place], [place] | | | | | | [address] | | | | | | | | +--------+---------+ + + + | 11/24/ | Office | Cardiology | [place], | | | 2019 | Visit | | SINDHU Erickson [address] | | | | | | [place], | | | | | | [place] [address] | | | | | | [phone] | | | | | | | | +--------+---------+ + + + | 03/01/ | Office | Pulmonology | Mukul Clark MD | | | 2020 | Visit | | [address] | | | | | | [place] | | | | | | [address] | | | | | | | | +--------+---------+ + + + documented as of this encounter Visit Diagnoses + + | Diagnosis | + + | Palpitations - Primary | + + | Paroxysmal atrial tachycardia (HCC) Paroxysmal supraventricular tachycardia | + + documented in this encounter
--- OUTSIDE RECORDS SUMMARY | ~2019-09-27 | XMS | Encounter Summary ---
Demographics + + + | Address | [address] | | | [place] [address] | + + + | Home Phone [...] Team Providers + +------+ + | Care Coal Briquette Machine Operator Name | Role | Phone [...] Description | +--------+--------+ + + + | 08/03/ | Refill | [facility] [place] | Kevin Sandoval, | Medication Refill | | 2013 | | PULMONARY [address] | MD [address] | | | | | [place], | [place] | | | | | [place] [address] | [address] | | | | | [phone] | | | +--------+--------+ + + + [...] | | | | | | [place] [address] | | | | | | [phone] | | | | | | | [...]
--- OUTSIDE RECORDS SUMMARY | ~2019-09-27 | XMS | Encounter Summary ---
Demographics + + + | Address | [address] | | | [place] [address] | + + + | Home Phone [...] Team Providers + +------+ + | Care Property Investor Name | Role | Phone | + +------+ + | Juan Cherry DO | PCP | | + +------+ + Reason for Visit + +--------+ + | Reason | Onset | Comments | | | Date | | + +--------+ + | Shortness of Breath | 11/03/ | | | | 2013 | | + +--------+ + Encounter Details +--------+ + + + + | Date | Type | Department | Care Team | Description | +--------+ + + + + | 11/03/ | Telephone | [facility] | Kevin Sandoval, | Shortness of Breath | | 2013 | | PULMONARY [address] | MD [address] | | | | | [place], | [place] | | | | | [place] [address] | [address] | | | | | [phone] | | | +--------+ + + + [...] Telephone Encounter - Marilyn Osborne RN - 11/04/2013 1:35 PM PDTCalvalentín Ponce regard ing symptoms. She states that since starting the Prednisone she is doing a lot better. She i s still more short of breath with exertion and with talking but improving.Electronically sig venkat by Marilyn Osborne RN at 11/04/2013 1:37 PM PDTTelephone Encounter - Shy Sandoval MD - 11/04/2013 12:17 PM PDTPlease determine how the patient is doing. If not better wou ld be glad to see her in followup.Electronically signed by Kevin Sandoval MD at 4 12:17 PM PDTTelephone Encounter - Loraine Hawkins RN - 11/03/2013 3:25 PM PDTGretchen calls back and is notified that Dr London sent in prescriptions and advised she follow up with Dr Sandoval when he returns but she's advised to go to ER or Urgent Care if not impr oving. She said she's worse and may go to ER but will first go get prescriptions and get sta rted on them. She has to brick picker her granddaughter from school now. If she does not see impr ovement, she'll go to ER. Has follow up appointment with Dr Sandoval 11/16/13 but may need to move it sooner. Message routed to Dr Sandoval for review. elephone Encounter - Loreta London MD - 3:18 PM PDTAntibiotics and prednisone taper sent. She can follow up with Dr. Bishop levine when he returns to [facility]. To urgent care or ER if not improving. elephone Encounter - Loraine Hawkins RN - 11/03/2013 2:57 PM PDTGretchen calls back to check the status of her request. Electr onically signed by Loraine Hawkins RN at 11/03/2013 2:57 PM PDTTelephone Encounter - Loraine Weir RN - 11/03/2013 11:28 AM PDTPatient calls to say she thinks she's having a COPD exacerbation. She's requesting a prednisone taper and an antibiotic ("I have to have an antibiotic with it as it makes a longer period between tapers"). Having increased shortness of breath since yesterday, denies fever, coughing up green and yellow sputum for the last 4 days (it's thick and "hard" and difficult to expectorate). She has a follow up appointment here 11/16/13. She is audibly short of breath though is able to talk with only having to paus e once to catch her breath. She confirms [facility] is her pharmacy. She just finished last prednisone taper on Friday and by Friday her symptoms started getting worse again. (She con tributes this to not having an antibiotic with it). Her PCP Dr Cherry is out of the offic e today and as she remembers it, she said Dr Sandoval had instructed her to call if she had breathing problems. Confirmed she's taking Daliresp and Spiriva daily and Advair twice daily . She said she's out of Duoneb but is using her ProAir "quite a bit", maybe every 2 hours. Q ueued prednisone taper and Duoneb (will need to add antibiotic to "meds and orders" if that' s decided) and message routed to Dr Sandoval. She will call me back this afternoon if I've n ot called her by mid afternoon. documented in this encounter Plan of Treatment [...] | | | | | | [place] [address] | | | | | | [phone] | | | | | | | | +--------+---------+ + + + | 03/01/ | Office | Pulmonology | Mukul Clark MD | | | 2020 | Visit | | [address] | | | | | | [place] | | | | | | [address] | | | | | | | | +--------+---------+ + + + documented as of this encounter Visit Diagnoses Not on filedocumented in this encounter
--- OUTSIDE RECORDS SUMMARY | ~2019-09-27 | XMS | Encounter Summary ---
Demographics + + + | Address | [address] | | | [place] [address] | + + + | Home Phone [...] Team Providers + +------+ + | Care Pre Algebra Teacher Name | Role | Phone [...] + + | 02/09/ | Telephone | [facility] | Kevin Sandoval, | Leora | | 2013 | | PULMONARY [address] | MD [address] | | | | | [place], | [place] | | | | | [place] [address] | [address] | | | | | [phone] | | | +--------+ + + + [...] 10 mg tablets, take 6 tablets by [facility] daily for 7 days, then [...] | | | | | | [place] [address] | | | | | | [phone] | | | | | | | | +--------+---------+ + + + | 03/01/ | Office | Pulmonology | Mukul Clark MD | | | 2020 | Visit | | [address] | | | | | | [place] | | | | | | [address] | | | | | | | | +--------+---------+ + + + documented as of this encounter Visit Diagnoses Not on filedocumented in this encounter"
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
--- OUTSIDE RECORDS SUMMARY | ~2019-09-27 | XMS | Encounter Summary ---
Demographics + + + | Address | [address] | | | [place] [address] | + + + | Home Phone [...] Team Providers + +------+ + | Care Gear Generator Set Up Operator Name | Role | Phone | + +------+ + | Juan Patel DO | PCP | | + +------+ + Reason for Visit + +--------+ + | Reason | Onset | Comments | | | Date | | + +--------+ + | Appointment | 06/11/ | | | | 2018 | | + +--------+ + Encounter Details +--------+ + + + + | Date | Type | Department | Care Team | Description | +--------+ + + + + | 06/11/ | Telephone | [facility] | Andriy Weber | Appointment | | 2018 | | [address] | [address] | | | | | [place] | [place] | | | | | [address] | [place] [address] | | | | | [phone] | [phone] | | | | | | | [...] this encounter Miscellaneous Notes Telephone Encounter - Korin Holly - 06/11/2017 11:34 AM PDTPATIENT CALLED BACK AND HAD UA DONE WITH DR PATEL. UA WAS DONE AT [facility]. Electronically si gned by Korin Holly at 06/11/2017 11:35 AM PDTTelephone Encounter - Marlen Boyce, Rag Boiler - 06/11/2017 11:23 AM PDTCalled Patient. No answer. Left message to ca ll back. elephone Encounter - Korin Holly - 06/11/2017 8:42 AM PDTPATIENT CALLED IN DU E TO AN APPT FOR TOMORROW ([facility]) BUT SHE HAS A UTI DIAGNOSED BY HER DOCTOR AND WILL START AN TI BIOTICS TODAY. SHOULD PATIENT STILL COME IN? PLEASE ADVISE [phone].Electronically si gned by Korin Holly at 06/11/2017 9:06 AM PDTdocumented in this encounter Plan of [...] [place] | | | | | | [address] | | | | | | | | +--------+---------+ + + + | 11/24/ | Office | Cardiology | [place], | | | 2019 | Visit | | SINDHU Erickson [address] | | | | | | [place], | | | | | | [place] [address] | | | | | | [phone] | | | | | | | | +--------+---------+ + + + | 03/01/ | Office | Pulmonology | Mukul Clark MD | | | 2020 | Visit | | [address] | | | | | | [place] | | | | | | [address] | | | | | | | | +--------+---------+ + + + documented as of this encounter Visit Diagnoses Not on filedocumented in this encounter"
--- OUTSIDE RECORDS SUMMARY | ~2019-09-27 | XMS | Encounter Summary ---
Demographics + + + | Address | [address] | | | [place] [address] | + + + | Home Phone [...] Providers + +------+ + | Care Glass Block Bender Name | Role | Phone | + [...] + + | 11/23/ | Emergency | [facility] | Tom Clarke, | Post-op pain | | 2016 | | MED CTR EMERGENCY | MD [address] | (Primary Dx) | | | | CENTER [address] | [place] | | | | | [place] | [address] | | | | | [address] | | | | | | [phone] | | | +--------+ + + + [...] sent through Care Everywhere.PAIN MANAGEMENT AFTER SURGERY (EGYPTIAN)documented in this encounter Medications at Time of [...] | | | | send order to [facility] | | | | | | | [facility]. | | | | | | | [...] | | | | | | | ([facility]) | | | | | | + [...] | 0 | 10/13/19 | | | Pxwatavoaa-WTHO-Elll | mouth as needed. | | | 16 | 7 | | -Cod [id number] MG | | | | | | [...] Clarke MD - 11/24/2015 5:40 PM PDT [address] [address] EMERGENCY ROOM REPORT TOM CLARKE MD Patient: JADYN SCHMITZ Admitting: MR #: [id number] LOC: PT TYPE: Adm Date: 11/24/2015 : [...] Transcribed on 11/25/2015 08:33:55 by roseline job# [id number] Confirmation #: [id number] cc: YONG AMANDA DO documented in this [...] | | | | | | [place] [address] | | | | | | [phone] | | | | | | | | +--------+---------+ + + + | 03/01/ | Office | Pulmonology | Mukul Clark MD | | | 2020 | Visit | | [address] | | | | | | [place] | | | | | | [address] | | | | | | | [...]
--- OUTSIDE RECORDS SUMMARY | ~2019-09-27 | XMS | Encounter Summary ---
Demographics + + + | Address | [address] | | | [place] [address] | + + + | Home Phone [...] Team Providers + +------+ + | Care Teasel Setter Name | Role | Phone | + [...] | 06/27/ | Clinical | [facility] | Andriy Weber | Dysuria (Primary Dx) | | 2017 | Support | [address] | [address] | | | | | [place] | [place] | | | | | [address] | [place] [address] | | | | | [phone] | [phone] | | | | | | | [...] encounter Progress Notes Nancy Dalal CMA - 06/27/2017 1:15 PM PDTUA dip was [...] | | | | | | [place] [address] | | | | | | [phone] | | | | | | | | +--------+---------+ + + + | 03/01/ | Office | Pulmonology | Mukul Clark MD | | | 2020 | Visit | | [address] | | | | | | [place] | | | | | | [address] | | | | | | | [...] 1.001 - 1.030 | | | | Hiram, | | | | | | UA, [...]
--- OUTSIDE RECORDS SUMMARY | ~2019-09-27 | XMS | Encounter Summary ---
Demographics + + + | Address | [address] | | | [place] [address] | + + + | Home Phone [...] Team Providers + +------+ + | Care Quantitative Software Engineer Name | Role | Phone | [...] | | | | [facility] | [address] | [address] | | | | | EXERCISE | [place], | [place] | | | | | | [place] [address] | [place], [place] | | | | | | Phone: | [address] | | | | | | [phone] | Phone: | | | | | | Fax: | [phone] | | | | | | [phone] | Fax: | | | | | | | [phone] | +--------+--------+ + + + + Encounter Details +--------+---------+ + + + | Date | Type | Department | Care Team | Description | +--------+---------+ + + + | 08/13/ | Office | [facility] | Jared Mcdonough, | Chronic obstructive | | 2017 | Visit | [facility] | [address] | pulmonary disease, | | | | [facility] [address] [place] [place], | unspecified COPD | | | | [address] [place] | [place] [address] | type (HCC) (Primary | | | | [place] [address] | [phone] | Dx) | | | | [phone] | | | +--------+---------+ + + + [...] + documented as of this encounter Progress Nima Plunkett-Tricia Crawley, SHINGLER - 08/13/2016 10:15 AM PDTPatient tolerated exercise [...] [place] | | | | | | [id number] | | | | | | | | +--------+---------+ + + + | 11/24/ | Office | Cardiology | [place], | | | 2019 | Visit | | SINDHU Erickson [address] | | | | | | [place] | | | | | | [place] [address] | | | | | | [phone] | | | | | | | | +--------+---------+ + + + | 03/01/ | Office | Pulmonology | Mukul Clark MD | | | 2020 | Visit | | [address] | | | | | | [place] | | | | | | [address] | | | | | | | | +--------+---------+ + + + documented as of this encounter Visit Diagnoses + + | Diagnosis | + + | Chronic obstructive pulmonary disease, unspecified COPD type (HCC) - Primary | + + documented in this encounter"
--- OUTSIDE RECORDS SUMMARY | ~2019-09-27 | XMS | Encounter Summary ---
Demographics + + + | Address | [address] | | | [place] [address] | + + + | Home Phone [...] Team Providers + +------+ + | Care Roofing Plant Supervisor Name | Role | Phone | + +------+ + | Juan Cherry DO | PCP | | + +------+ + Reason for Visit + + + | Reason | Comments | + + + | Cough | room 2/ x 3 days | + + + | Shortness of Breath | | + + + | Sweats | | + + + Encounter Details +--------+---------+ + + + | Date | Type | Department | Care Team | Description | +--------+---------+ + + + | 07/14/ | Office | [facility] | Elda Miranda | Asthma exacerbation | | 2012 | Visit | [facility] [address] | MD [address] | (Primary Dx) | | | | [facility] | [place] | | | | | [place] | [place] [address] | | | | | [address] | [phone] | | | | | [phone] | | | +--------+---------+ + + + [...] + + + | Blood Pressure | 106/72 | 07/14/2012 8:37 AM | | | | | PDT | | + + + + + | Pulse | 96 | 07/14/2012 8:37 AM | | | | | PDT | | + + + + + | Temperature | 36.6 C (97.9 F) | 07/14/2012 8:37 AM | | | | | PDT | | + + + + + | Respiratory Rate | 20 | 07/14/2012 8:37 AM | | | | | PDT | | + + + + + | Oxygen Saturation | 95% | 07/14/2012 8:37 AM | | | | | PDT | | + + + + + | Inhaled Oxygen | - | - | | | Concentration | | | | + + + + + | Weight | 59.9 kg (132 lb) | 07/14/2012 8:37 AM | | | | | PDT | | + + + + + | Height | 154.9 cm (5' 1") | 07/14/2012 8:37 AM | | | | | PDT | | + + + + + | Body Mass Index | 24.94 | 07/14/2012 8:37 AM | | | | | PDT | | + + + + + documented in this encounter Patient Instructions Patient Instructions Elda Miranda MD - 07/14/2012 9:18 AM PDTStart antibiotics as d irected. Start prednisone daily for the next 5 days. Use albuterol every 4 hours while awake for the next 24 hours, then every 6 hours while hernan ke for the next 24 hours then every 4-6 hours as needed. Refill of albuterol solution provi ded. Followup in 2-3 days if no better, return sooner or to ED if worsens. documented in this encounter Progress Notes Amish Abad RN - 07/14/2012 9:13 AM PDTalbuterol 2.5 mg/3 mL nebulizer solution 2. 5 mg given by inhalation. Patient's O2 sat before treatment 94% and felt short of breath. Eddie stover's O2sats after treatment 94% but stated feeling better and did not have shortness of b reath. Elda Anderson MD - 07/14/2012 9:11 AM PDT Subjective: Patient ID: Rosario Malik is a 47 y.o. female. HPI Patient is a 47-year-old female with history of asthma/COPD who presents to clinic today fo r a recent flare. She states for the past 4-5 days she has noticed increased wheezing and i ncreased cough. She states she normally has a cough which is occasionally productive. The amount of sputum and color of the sputum are unchanged from her baseline. Her cough however has increased as has her wheezing. She has had no documented fevers or chills but has felt hot. She also has had a runny nose and some nasal congestion. She denies ear pain or sore throat, has had no chest pain and no nausea, vomiting, or diarrhea. She has been using her albuterol 4 times daily yesterday and is are used twice today with minimal relief. She cur rently does not smoke but is a former smoker. She has had to be on steroids previously for exacerbations but has not used them for several years. She admits to compliance with the re mainder of her asthma medications. Past medical history, medications, allergies reviewed. Review of Systems As per [facility] Objective: Physical Exam Nursing note and vitals reviewed. Constitutional: Vital signs are normal. She appears well-developed and well-nourished. No d istress. HENT: Head: Normocephalic and atraumatic. Right Ear: Tympanic membrane, external ear and ear canal normal. Left Ear: Tympanic membrane, external ear and ear canal normal. Nose: Nose normal. Right sinus exhibits no maxillary sinus tenderness and no frontal sinus tenderness. Left sinus exhibits no maxillary sinus tenderness and no frontal sinus tendernes s. Mouth/Throat: Uvula is midline, oropharynx is clear and moist and mucous membranes are norm al. No oropharyngeal exudate. Neck: Normal range of motion. Neck supple. No thyromegaly present. Cardiovascular: Normal rate, regular rhythm and normal heart sounds. Exam reveals no loza p and no friction rub. No murmur heard. Pulmonary/Chest: She is in respiratory distress (mild conversational dyspnea). She has whee zes (wheezes throughout). She has no rales. Lymphadenopathy: She has no cervical adenopathy. Skin: Skin is warm and dry. She is not diaphoretic. Recheck after albuterol nebulizer #1-patient reports subjective improvement. No conversati onal dyspnea. Lungs clear. Assessment: 1. Asthma exacerbation SD INHAL RX, AIRWAY OBST/DX SPUTUM INDUCT, albuterol 2.5 mg/3 mL ne bulizer solution 2.5 mg Plan: Start antibiotics as directed. Start prednisone daily for the next 5 days. Use albuterol every 4 hours while awake for the next 24 hours, then every 6 hours while hernan ke for the next 24 hours then every 4-6 hours as needed. Refill of albuterol solution provi ded. Followup in 2-3 days if no better, return sooner or to ED if worsens. documented in this encounter Plan of Treatment [...] [place] | | | | | | [place] [address] | | | | | | [phone] | | | | | | | | +--------+---------+ + + + | 03/01/ | Office | Pulmonology | Mukul Clark MD | | | 2020 | Visit | | [address] | | | | | | [place] | | | | | | [address] | | | | | | | | +--------+---------+ + + + documented as of this encounter Visit Diagnoses + + | Diagnosis | + + | Asthma exacerbation - Primary Unspecified asthma, with exacerbation | + + documented in this encounter Administered Medications + +--------+ +--------+------+------+ | Medication Order | MAR | Action | Dose | Rate | Site | | | Action | Date | | | | + +--------+ +--------+------+------+ | albuterol 2.5 mg/3 mL nebulizer | Given | 07/15/19 | 2.5 mg | | | | solution 2.5 mg 2.5 mg, | | 13 8:55 | | | | | Nebulization, ONCE, 07/14/12 | | AM PDT | | | | | at 0915, For 1 dose | | | | | | + +--------+ +--------+------+------+ +---+---+ | | | +---+---+ documented in this encounter
--- OUTSIDE RECORDS SUMMARY | ~2019-09-27 | XMS | Encounter Summary ---
Demographics + + + | Address | [address] | | | [place] [address] | + + + | Home Phone [...] Team Providers + +------+ + | Care Respiratory Care Faculty Name | Role | Phone | + +------+ + | Juan Cherry DO | PCP | | + +------+ + Encounter Details +--------+ + + + + | Date | Type | Department | Care Team | Description | +--------+ + + + + | 04/10/ | Orders Only | [facility] | Jia Gupta W, | Bronchitis (Primary | | 2013 | | NEPHROLOGY [address] | MD [address] | Dx) | | | | [address] | [address] [place] | | | | | [place], [place] | [place] [address] | | | | | [address] | [phone] | | | | | [phone] | | | +--------+ + + + [...] documented as of this encounter Progress Notes Jia Gupta MD - 04/10/2013 11:22 AM PSTPhone call from patient complaining of incre ased shortness of breath and green sputum production. Pt sustained a chest wall injury on , and was evaluated in ER. CXR from 04/05/13 was reviewed. Pt reports she is using he r nebulizer 3-4 times a day. She is splinting due to pain in her sternum. Pt has appt to [facility] [place] on Friday04/12/13. Will give a short course of Prednisone and oral Cepha losporin for possible bacterial bronchitis till pt sees her strategy director. Pt was agreeable with plan. documented in this encounter Plan of Treatment [...] Office | Cardiology | [place], | | 2019 | Visit | | SINDHU Erickson [address] | | | | | | [place] | | | | | | [place] [address] | | | | | | [phone] | | | | | | | | +--------+---------+ + + + | 03/01/ | Office | Pulmonology | Mukul Clark MD | | | 2020 | Visit | | [address] | | | | | | [place] | | | | | | [address] | | | | | | | | +--------+---------+ + + + documented as of this encounter Visit Diagnoses + + | Diagnosis | + + | Bronchitis - Primary Bronchitis, not specified as acute or chronic | + + documented in this encounter"
--- OUTSIDE RECORDS SUMMARY | ~2019-09-27 | XMS | Encounter Summary ---
Demographics + + + | Address | [address] | | | [place] [address] | + + + | Home Phone [...] | Organization | [facility] | [...] Team Providers + +------+ + | Care Instrumentation Technologist Name | Role | Phone | + [...] Description | +--------+--------+ + + + | 11/21/ | Refill | [facility] | Andriy Weber | Medication Refill | | 2016 | | [address] | MD [address] | | | | | [place] | [place] | | | | | [address] | [place] [address] | | | | | [phone] | | | | | | | [...] | | | | | | [place] [address] | | | | | | [phone] | | | | | | | [...]
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
--- OUTSIDE RECORDS SUMMARY | ~2019-09-27 | XMS | Encounter Summary ---
Demographics + + + | Address | [address] | | | [place] [address] | + + + | Home Phone [...] Team Providers + +------+ + | Care Hearing Consultant Name | Role | Phone | [...] Groin pain, | MD Jared | [address] | | | | | right Hx | [address] | [place], | | | | | of coronary | [address] | [place] [address] | | | | | angiogram | [place], | Phone: | | | | | Peritoneal | [place] [address] | [phone] | | | | | bleeding | Phone: | Fax: | | | | | Procedures | [phone] | [phone] | | | | | CT Abdomen | Fax: | | | | | | Pelvis wo | [phone] | | | | | | Contrast [...] Groin pain, | MD Jared | [address] | | | | | right Hx | [address] | [place], | | | | | of coronary | [address] | [place] [address] | | | | | angiogram | [place], | Phone: | | | | | Peritoneal | [place] [address] | [phone] | | | | | bleeding | Phone: | Fax: | | | | | Procedures | [phone] | [phone] | | | | | CT Abdomen | Fax: | | | | | | Pelvis wo | [phone] | | | | | | Contrast | | | +--------+--------+ + + + + Encounter Details +--------+ + + + + | Date | Type | Department | Care Team | Description | +--------+ + + + + | 03/08/ | Hospital | [facility] | Jared Mcdonough, | Groin pain, right; | | 2014 | Encounter | [facility] [address] | [address] | Hx of coronary | | | | [address] [place], | [place], | angiogram; | | | | [place] [address] | [place] [address] | Peritoneal bleeding | | | | [phone] | [phone] | | | | | | | [...] | | | | | order to [facility]. | | | | | + [...] | | | | send order to [facility] | | | | | | | [facility]. | | | | | | [...] [place] | | | | | | [address] | | | | | | | | +--------+---------+ + + + | 11/24/ | Office | Cardiology | [place], | | | 2019 | Visit | | SINDHU Erickson [address] | | | | | | [place] | | | | | | [place] [address] | | | | | | [phone] | | | | | | | | +--------+---------+ + + + | 03/01/ | Office | Pulmonology | Mukul Clark MD | | | 2020 | Visit | | [address] | | | | | | [place] | | | | | | [address] | | | | | | | [...] study were phoned to Dr. Mcdonough as requested at the time of | [...] + | MISCELLANEOUS LAB | | | [phone] | + +---------+ + + | MISCELANIOUS LAB | | | [phone] | + +---------+ + + documented in [...]
--- OUTSIDE RECORDS SUMMARY | ~2019-09-27 | XMS | Encounter Summary ---
Demographics + + + | Address | [address] | | | [place] [address] | + + + | Home Phone [...] Providers + +------+ + | Care Tube Bender Hand Name | Role | Phone | [...] Description | +--------+---------+ + + + | 10/05/ | [facility] | [facility] [place] | Meghan Garcia MD | GARRY (obstructive | | 2019 | Visit | SLEEP DISORDER [address] | [address] | sleep apnea) | | | | [address] [place] | [place] | (Primary Dx); CSA | | | | [place] [address] | [id number] | (central sleep | | | | [phone] | | apnea); Excessive | | | | | | daytime sleepiness; | | | | | | Poor sleep hygiene; | | | | | | Insufficient sleep | | | | | | syndrome; Sedentary | | | | | | lifestyle | +--------+---------+ + + + Social History [...] + | Blood Pressure | 110/80 | 10/05/2018 10:19 AM | | | | | PDT | | + + + + + | Pulse | 75 | 10/05/2018 10:19 AM | | | | | PDT | | + + + + + | Temperature | - | - | | + + + + + | Respiratory Rate | 16 | 10/05/2018 10:19 AM | | | | | PDT | | + + + + + | Oxygen Saturation | 95% | 10/05/2018 10:19 AM | | | | | PDT | | + + + + + | Inhaled Oxygen | - | - | | | Concentration | | | | + + + + + | Weight | 64.7 kg (142 lb 10.2 | 10/05/2018 10:19 AM | | | | oz) | PDT | | + + + + + | Height | - | - | | + + + + + | Body Mass Index | 26.95 | 06/18/2018 1:02 PM | | | [...] encounter Progress Notes Meghan Garcia MD - 10/05/2018 10:30 AM PDT Rosario Malik is a 53 y.o. year old female is here for follow-up for sleep apnea. INTERVAL HISTORY The patient's last clinic visit was 08/17/18. She cannot remember how many sleep studies she has had so far. However, she was on CPAP f or several years before she was switched to bilevel [id number]. I reviewed the notes from Dr Chris Alarcon in [place], [place].It indicates that patient had CPAP intolerance [...] mentioned in any of the sleep studies. Downloadon 07/02/18showedthat patient wason bilevel-ST at 16/11 cm H2O with a breath rate of 12 BPM. Detailed report showsedthat AHI waselevated with occasional maximum at 40. She hadnot used the machine for the past 5-6 months. She statedsince she stopped using her bilevel machine she has had problems with excessive daytime sleepiness, drowsy driving, and not feeling rested when she wakes up in the morning . When she was using her machine they were not the problem. Discharge summary from ER no jimy dated 2018 indicates that she had an overnight oximetry on her bilateral wh ile she was hospitalized, and noted to have residual hypoxemia. She statedlindsay was told to stop using her bilevelmachine until she would beable to use the bilevel with oxygen. she statedthat the machine madeher waking up with panic attack, feeling that she coul d notbreathe, and she would getsome "strokelike symptoms." She statedlindsay had this pr oblem one more time before she was hospitalized in December 2017. 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 We performed a CPAP titration study on April 28, 2018,to determine the appropriate setting and pressure and also to see if she really needed nocturnal supplemental oxygen. Thetitration study was satisfactory. CPAPwas not tried as patienthadpreviously show ed CPAP intolerance.Bilevel-S was titrated up from 10/5 cm H2O to 19/15 cm H2O . Pressur e of 13/8 cmH2O appeared to control obstructive sleep apnea in supine non-REM sleep. In REMsleep,patient started to have numbers of obstructive sleep apnea at pressure of 13/8 cm H2O, and pressure was increased. Pressure of 16/11 cm H2O appeared to relatively contro l obstructive sleep apnea in supine REM sleep. Pressure continued to be increased for occa sional snoring and presumedobstructive events.It did not appearto make anypositive difference, and made Cflowlook evenworse. Also, patient started to have paradoxical breathing as pressure was increased. Somewherein the middle of the study patient woke up, calling with the urgency,statedthat"she woke like she did last year" panic with stroke like symptoms". Her SPO2 was above 90% and cflow was normal right before she woke up. I suspect higher pressures, mask leak, and anxiety caused these symptoms. Entire study ti me was performed on room air and supplementaloxygen was not added. Wake SPO2 was inthe high 90%. Mean SpO2 was96%, bernnon SpO2 was91%, and amount of total sleep time spen t below SpO2 of 90% was0%.Transcutaneous LU0wtfwbd 35-37mmHg during supine wake, and remained between 38 and 40 mmHg for entire study time.Hypoventilation was not observ ed. Previous sleep study reports(external) mentioned thatpatient had hypoventilation dur ing sleep, thoughCO2 was not measured in those sleep studies. Patient was restarted on bilevel-S at 15/11 cm H2O.We made sure that she was not on jennifer evel ST. His download in follow-up visit showed excessive leak and elevated AHI. Even af ter they excessive limb which was addressed by changing the mask and Gupta was much lower, a verage AHI was 6 and 13. It was sometimes higher. Patient continued to have awakenings at night, and also excessive daytime sleepiness. Though one of the reasonsof her excess wanda daytime sleepiness is her chronic sleep deprivation, but this sleep study was performed to once again reevaluate her baseline sleep related breathing disorder. She underwent a diagnostic polysomnography on August 03, 2018, demonstrating moderate sleep a pnea which was both obstructive and central in nature, with AHI of 17.2 and RDI of 29.9. Na dir saturation was 89%.There were numbers of central apneas with occasional periodicity in s upine NREM sleep. Post-arousal central apneas noted. Interestingly, central apneas were oc casionally associated with paradoxical breathing. Tor-Stone breathingwas notobserv ed. Since her titration study which was performed on April 28, 2018 that her sleep apnea was con trolled with bilevel at that 15/11 cm H2O, we continued her on this pressure. she was also switched from full face mask to nasal mask and chin strap. She continues to have excessive daytime sleepiness and drowsy driving, but she also does no t get enough sleep at night. Today: Last time, I discussed her sleep hygiene(including watching TV in the bed and resting too m uch time in the bed), lack of physical activity and how this can affect his asleep. Lauren kelley her how to improve her sleep hygiene, and discussed stimulus control therapy with her. today, she states that she continues to have excessive daytime sleepiness and drowsy drivin g, and also wakes up a few times at night for no good reason. she might wake up once to go to restroom, but otherwise she is not sure why she wakes up. She is frustrated that she has excessive daytime sleepiness and drowsy driving. She says she would like to try to port pl an and visit her daughter, but she cannot because of her drowsy driving. She was recently found to have anemia and is going to have iron infusion, though she is not sure when. She was told that her sleepiness and fatigue might be due to her anemia. Her P CP also told her that she might have narcolepsy. She is using her bilevel and she thinks the pressure is comfortable. She is wearing her ch in strap and she doesn't feel that she has excessive or leaking. She doesn't wake up with l jani. However, when she wakes up she notices that her mouth is very dry. Hair humidity l venu is at 2, because at higher level she got condensation. Her download today shows that average daily usage has been 4 hours and 30 minutes. She has n't used the machine for 94% of time. Average average AHI has been between 2 and 10. Most nights it is below 5. Most nights there is no excessive leaks. She goes to bed between 9:30 and 10 PM, and depending on her day and what she wants on TV s he will fall asleep somewhere between 9:30 and 11 PM. Once she turns off TV she is able to fall asleep within 10 minutes. If she wakes up at night she is able to fall back asleep wit hin 5-10 minutes. she wakes up between 4 and 5 am spontaneously and cannot go back to sleep , so she gets up. PROBLEM LIST Patient Active Problem List Diagnosis [...] Interstitial cystitis (chronic) without hematuria 11/22/2015 Unknown Lung nodule 11/21/2014 Unknown Syncope 07/11/2014 Unknown Abnormal stress test [...] hysterectomy 10/20/2012 Unknown Irritable colon 10/20/2012 Unknown Irritable bowel syndrome 10/20/2012 Unknown S/P MILES-BSO (total abdominal hysterectomy and bilateral salpingo-oophorectomy) 10/21/19 13 Unknown Asthma exacerbation 10/14/2012 Unknown Obstructive sleep apnea on CPAP 05/23/2012 Unknown Preventative health care 03/11/2012 Unknown Diverticulitis of colon (without mention of hemorrhage)(562.11) 03/08/2010 Unknown Galactorrhea associated with childbirth 03/10/2007 Unknown Increased prolactin level 03/10/2007 Unknown Pituitary adenoma 11/04/2006 Unknown ALLERGIES Allergies Allergen Reactions Erythromycin Base Other (See Comments) Bloating and swelling, lips swell Onion Anaphylaxis Artificial Sweetners [Sucralose] Other (See Comments) Migraine Doxycycline Hives Macrolides And Ketolides Hives Meperidine Other (See Comments) Panic attacks Nsaids Hives and Rash Pork Allergy Other (See Comments) GI distress Erythromycin Unknown Pork-Derived Products Unknown MEDICATIONS Prior to Admission medications Medication Sig [...] needed for Pain. 06/18/18 Yes Jesus Brady, HYDROcodone-acetaminophen (NORCO) 5-325 mg per tablet 07/14/18 Yes Historical Provider, HYDROcodone-acetaminophen (NORCO) 7.5-325 mg per tablet 07/03/18 Yes Historical Provider, hydrOXYzine hydrochloride (ATARAX) 25 mg tablet Take 1 tablet by mouth Daily. 11/03/17 Yes Historical Provider, levothyroxine (SYNTHROID) 75 MCG tablet Take 1 tablet by mouth every morning (before breakf ast). 09/07/18 Yes SINDHU Vang metFORMIN (GLUCOPHAGE) 500 mg tablet Take 500 [...] 5 mg by mouth Daily. Yes Historical ProviderMD oxygen Inhale into the lungs continuous. 3 liters while awake Yes Historical ProviderYinka pantoprazole (PROTONIX) 20 mg tablet Take 40 mg by mouth every morning (before breakfast). Yes Historical Provider, pantoprazole (PROTONIX) 40 mg tablet 09/04/18 Yes Historical Provider, potassium chloride (KLOR-CON M20) 20 mEq ER tablet Take 1 tablet by mouth Daily. 09/21/18 Y SINDHU Dumont predniSONE (DELTASONE) 10 mg tablet Take 10 mg by mouth Daily. Yes Historical Provider, Yinka Witt Respiratory Therapy Supplies [facility] Please provide patient with necessary CPAP supplies (she did not specify, okay to send order as appropriate) Diagnosis Code(s)327.23 . Length of Need 99 months. Please send order to [facility]. 01/13/13 Yes Loreta London MD Respiratory Therapy Supplies [facility] Change CPAP back to 11-14 cm H2O. All necessary supplies. No oxygen bleed in. Diagnosis Code(s)327.23. Length of Need: Lifetime. Please send order to [facility]. This is not a new order, just a change in settings. 08/10/12 Yes Loreta London MD roflumilast (DALIRESP) 500 mcg tablet Take 1 tablet by mouth Daily. 09/13/14 Yes Kevin Harris MD SUMAtriptan (IMITREX) 100 mg tablet Take 100 mg by mouth as needed for Migraine. Yes Hist orical Provider, traMADol (ULTRAM) 50 mg tablet Take 50 mg by mouth 4 times daily. 03/29/16 Yes Historical Pr oviderMD VENTOLIN HFA 108 (90 Base) MCG/ACT inhaler 08/28/18 Yes Historical Provider, ziprasidone (GEODON) 80 MG capsule Take 80 mg by mouth 2 times daily. 11/07/11 Yes DATA MICHELE RATION QUIN SR PHYSICAL EXAM BP 110/80 | Pulse 75 | Resp 16 | Wt 64.7 kg (142 lb 10.2 oz) | SpO2 95% | BMI 26.95 kg /m , GEN: Pleasant, appropriate affect, NAD. NEURO: Alert, normal gait. ASSESSMENT and PLAN GARRY and CSA: Controlled with bilevel. The leak has decreased. Humidity is at 2. She has h ad some condensation at higher levels. Since dry mouth might be one of the reasons of her awakenings at night, I will ask Tiffanie to check her machine for adjusting humidity level and addressing condensation. Otherwise, no changes in mask or pressure today. Excessive daytime sleepiness: This is multifactorial. Her sleep apnea at this time is cont rolled. However, she has chronic sleep deprivation. She has minimal physical activity whic h can affect her sleep pressure and her ability to stay asleep at night. She also does cont inues to have poor sleep hygiene. Since she wakes up spontaneously between 4 and 5 AM she s hould set a good sleep hygiene(including avoiding watching TV in the bed) and set an earlier bedtime. I have discussed it in every session for the past several visits, but she has not followed the instructions. She unlikely has narcolepsy. Narcolepsy cannot be diagnosed in the presence of chronic sleep deprivation. besides, she is on several medications that cou ld have sedative side effect(hydrocodone, gabapentin, Geodon, metoprolol(fatigue), etc). Aga in, her lack of physical activity and her diet can affect her energy level and sleep. Her an emia also might contribute to her symptoms(as it has been found out by her PCP). I suggested: Increasing humidity level on bilevel to see if it helps with her awakenings at night. setting an earlier bedtime, improve sleep hygiene, and increase the hours of sleep at nigh t. Avoid naps. treating her anemia. If she still has EDS after her iron infusions, we might have to start a trial of trazodone or zolpidem to help with the quality of her sleep and sleep hours. Once it is improved(at le ast 7 hrs of sleep at night for a month or so), if she still had EDS we might need to add st imulant for residual sleepiness in sleep apnea. She is agreeable. Advised against driving in case of drowsiness. I will call her in 2 weeks to see if she has had her iron infusion, and will make further f /u accordingly. Thank you for the opportunity to participate in this patient's care. Portions of this chart may have been created with [employer] voice recognition software. Occasi onal wrong-word or [...] [place] | | | | | | [id number] | | | | | | | | +--------+---------+ + + + | 11/24/ | Office | Cardiology | [place], | | | 2019 | Visit | | SINDHU Erickson [address] | | | | | | [place] | | | | | | [place] [address] | | | | | | [phone] | | | | | | | | +--------+---------+ + + + | 03/01/ | Office | Pulmonology | Mukul Clakr MD | | | 2020 | Visit | | [address] | | | | | | [place] | | | | | | [address] | | | | | | | | +--------+---------+ + + + documented as of this encounter Visit Diagnoses + + | Diagnosis | + + | GARRY (obstructive sleep apnea) - Primary Obstructive sleep apnea (adult) (pediatric) | + + | CSA (central sleep apnea) Unspecified sleep apnea | + + | Excessive daytime sleepiness | + + | Poor sleep hygiene Other specific disorder of sleep of nonorganic origin | + + | Insufficient sleep syndrome Persistent disorder of initiating or maintaining | | wakefulness | + + | Sedentary lifestyle Other specified personal history presenting hazards to health | + + documented in this encounter
--- OUTSIDE RECORDS SUMMARY | ~2019-09-27 | XMS | Encounter Summary ---
Demographics + + + | Address | [address] | | | [place] [address] | + + + | Home Phone [...] Team Providers + +------+ + | Care Toll Gate Keeper Name | Role | Phone | [...] | | | | | [address] | | | | | | [place] [address] | | | | | | [phone] | | | +--------+ + + + [...] PT - 02/14/2014 1:[address] [facility] [address] [place] [address] Physical Therapy Discharge Note Date: 02/14/2014 Patient [...] [place] | | | | | | [address] | | | | | | | | +--------+---------+ + + + | 11/24/ | Office | Cardiology | [place], | | | 2019 | Visit | | SINDHU Erickson [address] | | | | | | [place], | | | | | | [place] [address] | | | | | | [phone] | | | | | | | | +--------+---------+ + + + | 03/01/ | Office | Pulmonology | Mukul Clark MD | | | 2020 | Visit | | [address] | | | | | | [place] | | | | | | [address] | | | | | | | | +--------+---------+ + + + documented as of this encounter Visit Diagnoses Not on filedocumented in this encounter"
--- OUTSIDE RECORDS SUMMARY | ~2019-09-27 | XMS | Encounter Summary ---
Demographics + + + | Address | [address] | | | [place] [address] | + + + | Home Phone [...] Team Providers + +------+ + | Care Last Marker Name | Role | Phone | + [...] (Primary Dx); | | | | [place] [address] | | Central sleep apnea; | | | | [phone] | | Insomnia | +--------+---------+ + + [...] start the day at 4 AM. Evangelista russell notes that between 11:30PM and midnight she [...] | | | | | | [place] [address] | | | | | | [phone] | | | | | | | | +--------+---------+ + + + | 03/01/ | Office | Pulmonology | Mukul Clark MD | | | 2020 | Visit | | [address] | | | | | | [place] | | | | | | [address] | | | | | | | [...]
--- OUTSIDE RECORDS SUMMARY | ~2019-09-27 | XMS | Encounter Summary ---
Demographics + + + | Address | [address] | | | [place] [address] | + + + | Home Phone [...] Providers + +------+ + | Care Manager Wound Name | Role | Phone | + +------+ + PCP | Unavailable | + +------+ + Encounter Details +--------+ + + + + | Date | Type | Department | Care Team | Description | +--------+ + + + + | 04/13/ | Hospital | [facility] | Lencho Goss MD | | | 2010 | Encounter | MED CTR GENERIC OP | [address], [address] [place] | | | | | CONV DEPT [address] | [address] [place], [place] | | | | | [address], | [address] | | | | | [place] [address] | | | | | | [phone] | | | +--------+ + + + [...] | | | | | | [place] [address] | | | | | | [phone] | | | | | | | | +--------+---------+ + + + | 03/01/ | Office | Pulmonology | Mukul Clark MD | | | 2020 | Visit | | [address] | | | | | | [place] | | | | | | [phone] | | | | | | | | +--------+---------+ + + + documented as of this encounter Visit Diagnoses Not on filedocumented in this encounter"
--- OUTSIDE RECORDS SUMMARY | ~2019-09-27 | XMS | Encounter Summary ---
Demographics + + + | Address | [address] | | | [place] [address] | + + + | Home Phone [...] Providers + +------+ + | Care Pilot Plant Operator Helper Name | Role | Phone | + +------+ + | Juan Cherry DO | PCP | | + +------+ + Encounter Details +--------+ + + + + | Date | Type | Department | Care Team | Description | +--------+ + + + + | 02/26/ | Transcribed | [facility] | Mukul Clark MD | Pulmonary emphysema, | | 2017 | Orders | MED CTR PULMONARY | [address] | unspecified | | | | FUNCTION [address] | [address] [place] | emphysema type (HCC) | | | | [place], | [address] | (Primary Dx) | | | | [place] [address] | | | | | | [phone] | | | +--------+ + + + [...] | 11/24/ | Office | Cardiology | [place], | | | 2019 | Visit | | SINDHU Erickson [address] | | | | | | [address] | | | | | | [place] [address] | | | | | | [phone] | | | | | | | | +--------+---------+ + + + | 03/01/ | Office | Pulmonology | Mukul Clark MD | | | 2020 | Visit | | [address] | | | | | | [place] | | | | | | [address] | | | | | | | | +--------+---------+ + + + documented as of this encounter Results Pulmonary function test (02/29/2016 [...] | | Romi Sandoval MD 02/29/2016 6:30[facility] | | |IMPRESSION: Spirometry is consistent with [...] Sandoval MD 02/29/2016 6:30 | | |[facility] | | + + + documented in this encounter Visit Diagnoses + + | Diagnosis | + + | Pulmonary emphysema, unspecified emphysema type (HCC) - Primary | + + documented in this encounter"
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
--- OUTSIDE RECORDS SUMMARY | ~2019-09-27 | XMS | Encounter Summary ---
Demographics + + + | Address | [address] | | | [place] [address] | + + + | Home Phone [...] Team Providers + +------+ + | Care Duralumin Metalworker Name | Role | Phone | + [...] [address] | Loreta Alonso MD | apnea (adult) | | | | [place], | | (pediatric) (Primary | | | | [place] [address] | | Dx) | | | | [phone] | | | +--------+ + + + [...] [place] | | | | | | [address] | | | | | | | | +--------+---------+ + + + | 11/24/ | Office | Cardiology | [place], | | | 2019 | Visit | | SINDHU Erickson [address] | | | | | | [place], | | | | | | [place] [address] | | | | | | [phone] | | | | | | | | +--------+---------+ + + + | 03/01/ | Office | Pulmonology | Mukul Clark MD | | | 2020 | Visit | | [address] | | | | | | [place] | | | | | | [address] | | | | | | | | +--------+---------+ + + + documented as of this encounter Visit Diagnoses + + | Diagnosis | + + | Obstructive sleep apnea (adult) (pediatric) - Primary | + + documented in this encounter"
--- OUTSIDE RECORDS SUMMARY | ~2019-09-27 | XMS | Encounter Summary ---
Demographics + + + | Address | [address] | | | [place] [address] | + + + | Home Phone [...] Providers + +------+ + | Care Supervisor Wheel Shop Name | Role | Phone | + [...] + + | 06/17/ | Telephone | [facility] [place] | [place], | Leora | | 2017 | | CARDIOLOGY [address] | SINDHU Erickson [address] | | | | | [place], | [place], | | | | | [place] [address] | [place] [address] | | | | | [phone] | [phone] | | | | | | | [...] Vera RN on 06/18/17 at 9:13 [facility]phone [facility] Virgen Soliz RN - 06/17/2017 [...] 2020 | Visit | | [address] [facility] | | | | | | [place] | | | | | | [id number] | | | | | | | | +--------+---------+ + + + | 11/24/ | Office | Cardiology | [place], | | | 2019 | Visit | | SINDHU Erickson [address] | | | | | | [place] | | | | | | [place] [address] | | | | | | [phone] | | | | | | | | +--------+---------+ + + + | 03/01/ | Office | Pulmonology | Mukul Clark MD | | | 2020 | Visit | | [address] | | | | | | [place] | | | | | | [phone] | | | | | | | [...]
--- OUTSIDE RECORDS SUMMARY | ~2019-09-27 | XMS | Encounter Summary ---
Demographics + + + | Address | [address] | | | [place] [address] | + + + | Home Phone [...] Team Providers + +------+ + | Care Budget Specialist Name | Role | Phone | [...] Description | +--------+--------+ + + + | 09/21/ | Refill | [facility] [place] | [place], | Medication Refill | | 2020 | | CARDIOLOGY [address] | SINDHU Erickson [address] | | | | | [place], | [place], | | | | | [place] [address] | [place] [address] | | | | | [phone] | [phone] | | | | | | | [...] | | | | | | [place] [address] | | | | | | [phone] | | | | | | | [...]
--- OUTSIDE RECORDS SUMMARY | ~2019-09-27 | XMS | Encounter Summary ---
Demographics + + + | Address | [address] | | | [place] [address] | + + + | Home Phone [...] Providers + +------+ + | Care Manager Welding Name | Role | Phone | + +------+ + | Ozzy Delcid MD | PCP | | + +------+ + Encounter Details +--------+ + + + + | Date | Type | Department | Care Team | Description | +--------+ + + + + | 03/29/ | Hospital [facility] | | | [facility] | Encounter | MED CTR LABORATORY | | | | | | [address] | | | | | | [place] | | | | | | [address] | | | | | | [phone] | | | +--------+ + + + [...] 09/27/ | Office | Sleep Medicine | eMghan Garcia MD | | | 2019 | Visit | | [address] | | | | | | [place] | | | | | | [address] | | | | | | | | +--------+---------+ + + + | 11/24/ | Office | Cardiology | [place], | | | 2020 | Visit | | SINDHU Erickson [address] | | | | | | [place] | | | | | | [place] [address] | | | | | | [phone] | | | | | | | | +--------+---------+ + + + | 03/01/ | Office | Pulmonology | Mukul Clark MD | | | 2020 | Visit | | [address] | | | | | | [place] | | | | | | [address] | | | | | | | | +--------+---------+ + + + documented as of this encounter Procedures + +--------+ + + + | Procedure Name | Priori | Date/Time | Associated Diagnosis | Comments | | | ty | | | | + +--------+ + + + | IRON PROFILE, | Routin | 03/29/2011 | | Results for this | | (FE+IBC+FERR+%SAT) | e | 10:02 AM | | procedure are in the | | | | PST | | results section. | + +--------+ + + + | THYROID PANEL | Routin | 03/29/2011 | | Results for this | | | e | 10:02 AM | | procedure are in the | | | | PST | | results section. | + +--------+ + + + | PROLACTIN | Routin | 03/29/2011 | | Results for this | | | e | 10:02 AM | | procedure are in the | | | | PST | | results section. | + +--------+ + + + | TSH | Routin | 03/29/2011 | | Results for this | | | e | 10:02 AM | | procedure are in the | | | | PST | | results section. | + +--------+ + + + | T4, TOTAL | Routin | 03/29/2011 | | Results for this | | | e | 10:02 AM | | procedure are in the | | | | PST | | results section. | + +--------+ + + + documented in this encounter Results Iron Profile (03/29/2011 10:02 AM PST) + + + + + + | Component | Value | Ref Range | Performed | Pathologist | | | | | At | Signature | + + + + + + | Iron | 91 | ug/dL | [facility] | | | | [facility] | | | | | | [facility] | | | | | [facility] - | | | | | | LABORATORY | | + + + + + + | TIBC | 342 | 235 - 425 ug/dL | [facility] | | | | [facility] | | | | | [facility] | | | | | | [facility] - | | | | | | LABORATORY | | + + + + + + | % | 27 | 20 - 55 % | [facility] | | | SATUR[facility] | | | [facility] | | | | | | [facility] | | | | | | CENTER - | | | | | | LABORATORY | | + + + + + + | FERRITIN | 33.5Comment: Testing | 11.0 - 306.9 | [facility] | | | | performed on the [place] | ng/mL | [facility] | | | | [facility] | | MEDICAL | | | [...] + | [facility] | [address] | [place] | [phone] | | [facility] | | [address] | | | - LABORATORY | | | | + + + + + | [facility] | [address] | [place], [place] | | | [facility] | | [address], [facility] | | | - LABORATORY | | | | + + + + + Prolactin (03/29/2011 10:02 AM PST) + + + + + + | Component | Value | Ref Range | Performed | Pathologist | | | | | At | Signature | + + + + + + | Prolactin | 75.1 (H)Comment: | 1.4 - 24.2 | [facility] | | | | Reference range applies | ng/mL | [facility] | | | | only to non | | MEDICAL | | | | females. Testing | | CENTER - | | | | Performed: [facility], [address] | | LABORATORY | | | | [address] [place] [address] [place] | | | | | | [address] CLIA: [id number] | | | | | | | | | | + + + + + + + + | Specimen | + + | | + + + + + + + | Performing | Address | City/State/Zipcode | Phone Number | | Organization | | | | + + + + + | [facility] | [address] | [place] | [phone] | | [facility] | | [address] | | | - LABORATORY | | | | + + + + + | [facility] | [address] | [place] | | | [facility] | | [address], [facility] | | | - LABORATORY | | | | + + + + + TSH (03/29/2011 10:02 AM PST) + + + + + + | Component | Value | Ref Range | Performed | Pathologist | | | | | At | Signature | + + + + + + | TSH | 0.23 (L)Comment: Testing | 0.34 - 5.60 | [facility] | | | | performed on the | uIU/mL | [facility] | | | | [facility] | | MEDICAL | | | [...] + | [facility] | [address] | [place], [place] | [phone] | | [facility] | | [address] | | | - LABORATORY | | | | + + + + + | [facility] | [address] | [place], [place] | | | [facility] | | [address] [place] [address] | | | - LABORATORY | | | | + + + + + Thyroid Panel (03/29/2011 10:02 AM PST) + +-------+ + + + | Component | Value | Ref Range | Performed | Pathologist | | | | | At | Signature | + +-------+ + + + | Free | 10.0 | 4.9 - 10.0 | [facility] | | | Thyroxine | | | [facility] | | | Index | | | MEDICAL | | | [...] + | [facility] | [address] | [place] | [phone] | | [facility] | | [address] | | | - LABORATORY | | | | + + + + + | [facility] | [address] | [place], [place] | | | [facility] | | [email or web address] | | | - LABORATORY | | | | + + + + + T4, Total (03/29/2011 10:02 AM PST) + + + + + + | Component | Value | Ref Range | Performed | Pathologist | | | | | At | Signature | + + + + + + | T4, Total | 9.9 (H)Comment: Testing | 4.7 - 9.8 ug/dL | [facility] | | | | performed on the [address] | | [facility] | | | | [facility] | | MEDICAL | | | [...] [address] | [place] | [phone] | | [facility] | | [address] | | | - LABORATORY | | | | + + + + + | [facility] | [address] | [place] | | | [facility] | | [address] [[email or web address]] | | | - LABORATORY | | | | + + + + + documented in this encounter Visit Diagnoses Not on filedocumented in this encounter"
--- OUTSIDE RECORDS SUMMARY | ~2019-09-27 | XMS | Encounter Summary ---
Demographics + + + | Address | [address] | | | [place] [address] | + + + | Home Phone [...] Providers + +------+ + | Care Retail Warehouse Supervisor Name | Role | Phone | [...] THOM FALK | MD [address] | cystitis (Primary | | | | [place], [place] | [place] | Dx) | | | | [address] | [place] [address] | | | | | [phone] | | | | | | | [...] [place] | | | | | | [address] | | | | | | | | +--------+---------+ + + + | 11/24/ | Office | Cardiology | [place], | | | 2019 | Visit | | SINDHU Erickson [address] | | | | | | [place] | | | | | | [place] [address] | | | | | | [phone] | | | | | | | | +--------+---------+ + + + | 03/01/ | Office | Pulmonology | Mukul Clark MD | | | 2020 | Visit | | [address] | | | | | | [place] | | | | | | [address] | | | | | | | | +--------+---------+ + + + documented as of this encounter Visit Diagnoses + + | Diagnosis | + + | Interstitial cystitis - Primary Chronic interstitial cystitis | + + documented in this encounter"
--- OUTSIDE RECORDS SUMMARY | ~2019-09-27 | XMS | Encounter Summary ---
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 | | | level | | | [facility] | | [...] | + + + + + | [facility] | [address] | [place], [place] | [phone] | | [facility] | | [address] | | | - LABORATORY | | | | + + + + + Troponin I (08/30/2017 11:44 AM PDT) + + + + + + | Component | Value | Ref Range | Performed | Pathologist | | | | | At | Signature | + + + + + + | Troponin I | 0.01Comment: Reference | <0.06 ng/mL | [facility] | [...] | | | | | | [employer] | | | | | [...] + | [facility] | [address] | [place] | [phone] | | [facility] | | [address] | | | - LABORATORY | | | | + + + + + Basic Metabolic Panel (08/30/2017 11:44 AM PDT) + + + + [...] + + + + | K | 3.1 (L) | 3.5 - 5.1 | [facility] | [...] + + + + | BUN | 3 (L) | 7 - 18 mg/dL | [facility] | | | | | | [facility] | [facility] | [facility] | [facility]ICAL | | | | | | CENTER - | | | | | | LABORATORY | | + + + + + + | Creatinine | 0.78 | 0.60 - 1.30 | [facility] | | | | | mg/dL | [facility] | | | | | | MEDICAL | | | | | | CENTER - | | | | | | LABORATORY | | + + + + + + | eGFR, | >60Comment: GLOMERULAR | >=60 | [facility] | | | non- | FILTRATION | mL/min/1.73m2 | [facility] | | | [place] | RATE,ESTIMATED | | MEDICAL | | | | mL/min/1.31m3Wufw than | | CENTER - | | [...] | | | | | mg/dL | [facility] | | | | | | MEDICAL | | | | | | CENTER - | | | | | | LABORATORY | | + + + + + + | BUN/Creatin | 3.8 | | [facility] | | | ine [...] [address] | [place] | [phone] | | [facility] | | [address] | | | - LABORATORY | | | | + + + + + CBC with Differential (08/30/2017 11:44 AM PDT) + + + + + + | Component | Value | Ref Range | Performed | Pathologist | | | | | At | Signature | + + + + + + | White Blood | 9.7 | 4.0 - 11.0 K/uL | [facility] | | | Cells | | | [facility] | | | | | | [facility]ICAL | | | | | | CENTER - | | | | | | LABORATORY | | + + + + + + | Red Blood | 4.85 | 3.70 - 5.20 | [facility] | | | Cells | | M/uL | [facility] | | | [facility] | MEDICAL | | | | | | CENTER - | | | | | | LABORATORY | | + + + + + + | Hemoglobin | 13.7 | 11.5 - 16.0 | [facility] | | | | | g/dL | [facility] | | [facility] | | | MEDICAL | | | | | | CENTER - | | | | | | LABORATORY | | + + + + + + | Hematocrit | 40.1 | 34.0 - 47.0 % | [facility] | | | | | | [facility] | | | | [facility] | [facility]ICAL | | | | | | CENTER - | | | | | | LABORATORY | | + + + + + + | MCV | 82.9 (L) | 83.0 - 101.0 fL | [facility] | | | | | | [facility] | [facility] | | [facility] | MEDICAL | | | | | | CENTER - | | | | | | LABORATORY | | + + + + + + | MCH | 28.2 | 28.0 - 35.0 pg | [facility] [...] + + + + | RDW-CV | 14.8 | <15.0 % | [facility] | | | | | | [facility] | | [facility] | [facility] | [facility]ICAL | | | | | | CENTER - | | | | | | LABORATORY | | + + + + + + | Platelet | 470 (H) | 140 - 440 K/uL | [facility] | | | Count | | | [facility] | | | | [facility] | MEDICAL | | | | | | CENTER - | | | | | | LABORATORY | | + + + + + + | MPV | 7.3 | fL | [facility] | | | | | | [facility] | [facility] | | [facility] | [facility]ICAL | | | | | | CENTER - | | | | | | LABORATORY | | + + + + + + | % | 42.3 (L) | 45.0 - 82.0 % | [facility] | | | Neutrophils | | | [facility] | | | | | | MEDICAL | | | | | | CENTER - | | | | | | LABORATORY | | + + + + + + | % | 46.6 (H) | 20.0 - 45.0 % | [facility] | | | Lymphocytes | | | [facility] | | | | | | MEDICAL | | | | | | CENTER - | | | | | | LABORATORY | | + + + + + + | % Monocytes | 8.3 | 4.0 - 12.0 % | [facility] | | | | | | [facility] | | | [facility] | [facility]ICAL | | | | | | CENTER - | | | | | | LABORATORY | | + + + + + + | % | 2.2 | 0.0 - 5.0 % | [facility] | | | Eosinophils | | | [facility] | | | | | | MEDICAL | | | | | | CENTER - | | | | | | LABORATORY | | + + + + + + | % Basophils | 0.6 | 0.0 - 1.0 % | [facility] | | | | | | [facility] | | | [facility] | [facility]ICAL | | | | | | CENTER - | | | | | | LABORATORY | | + + + + + + | Absolute | 4.10 | 1.80 - 8.50 | [facility] | | | Neutrophils | | K/uL | [facility] | | | | | | MEDICAL | | | | | | CENTER - | | | | | | LABORATORY | | + + + + + + | Absolute | 4.50 (H) | 0.60 - 3.20 | [facility] | | | Lymphocytes | | K/uL | [facility] | | | | | | MEDICAL | | | | | | CENTER - | | | | | | LABORATORY | | + + + + + + | Absolute | 0.80 | 0.00 - 1.00 | [facility] | | | Monocytes | | K/uL | [facility] | | | | [facility] | MEDICAL | | | | | | CENTER - | | | | | | LABORATORY | | + + + + + + | Absolute | 0.20 | 0.00 - 0.40 | [facility] | | | Eosinophils | | K/uL | [facility] | | | | | | MEDICAL | | | | | | CENTER - | | | | | | LABORATORY | | + + + + + + | Absolute | 0.10 | 0.00 - 0.10 | [facility] | | | Basophils | | K/uL | [facility] | [...] + | [facility] | [address] | [place] | [phone] | | [facility] | | [address] | | | - LABORATORY | | | | + + + + + Extra Gold Top Tube (08/30/2017 11:44 AM PDT) + +-------+ + + + | Component | Value | Ref Range | Performed | Pathologist | | | | | At | Signature | + +-------+ + + + | Extra Gold | Done | | [facility] | | | Top Tube | | | [facility] | | [...] [address] | [place] | [phone] | | [facility] | | [address] | | | - LABORATORY | | | | + + + + + Extra Blue Top Tube (08/30/2017 11:44 AM PDT) + +-------+ + + + | Component | Value | Ref Range | Performed | Pathologist | | | | | At | Signature | + +-------+ + + + | Extra Blue | Done | | [facility] | | | Top Tube | | | [facility] | | [...] [address] | [place] | [phone] | | [facility] | | [address] | | | - LABORATORY | | | | + + + + + Extra Lavender Top Tube (08/30/2017 11:44 AM PDT) + +-------+ + + + | Component | Value | Ref Range | Performed | Pathologist | | | | | At | Signature | + +-------+ + + + | Extra | Done | | [facility] | | | Lavender | | | [facility] | | | Top Tube | | [...] [address] | [place] | [phone] | | [facility] | | [address] | | | - LABORATORY | | | | + + + + + Extra Lavender Top Tube (08/30/2017 11:44 AM PDT) + +-------+ + + + | Component | Value | Ref Range | Performed | Pathologist | | | | | At | Signature | + +-------+ + + + | Extra | Done | | [facility] | | | Lavender | | | [facility] | | | Top Tube | | [...] + | [facility] | [address] | [place] | [phone] | | [facility] | | [address] | | | - LABORATORY | | | | + + + + + Extra Green Top Tube (08/30/2017 11:44 AM PDT) + +-------+ + + + | Component | Value | Ref Range | Performed | Pathologist | | | | | At | Signature | + +-------+ + + + | Extra Green | Done | | [facility] | | | Top Tube | | | [facility] | | [...] [address] | [place] | [phone] | | [facility] | | [address] | | | - LABORATORY | | | | + + + + + Extra Green Top Tube (08/30/2017 11:44 AM PDT) + +-------+ + + + | Component | Value | Ref Range | Performed | Pathologist | | | | | At | Signature | + +-------+ + + + | Extra Green | Done | | [facility] | | [...] [address] | [place] | [phone] | | [facility] | | [address] | | | - LABORATORY | | | | + + + + + ECG 12 lead (08/30/2017 11:40 AM PDT) + + + + [...] + + + + | QRS | 74 | ms | [facility] | | | DURATION | | | | | + + + + + + | Q-T | 318 | ms | [facility] | | | INTERVAL | | | | | + + + + + + | Q-T | 430 | ms | [facility] | | | INTERVAL | | | | | | (CORRECTED) | | | | | + + + + + + | P WAVE AXIS | 76 | degrees | [facility] | | + + + + + + | QRS AXIS | 60 | degrees | [facility] [...] supraventricular | | | | | | complexesNonspecific ST | | | | | | abnormalityWhen compared | | | | | | with ECG of 14-AUG-2017 | | | | | | 14:50,premature | | | | | | ventricular complexes | | | | | | are no longer | | | | | | presentpremature | | | | | | supraventricular | | | | | | complexes are now | | | | | | presentT wave amplitude | | | | | | has increased in | | | | | | Inferolateral leadsT | | | | | | wave amplitude has | | | | | | decreased in leads I and | | | | | | aVLConfirmed by RUSSELL | | | | | | RAFA PAUL ([id number]) on | | | | | | 08/31/2017 7:07:27 PM | | | | + + [...] Primary Tachycardia, unspecified | + + | Hypokalemia Hypopotassemia | + + documented in this encounter Administered Medications + +--------+ +--------+------+------+ | Medication Order | MAR | Action | Dose | Rate | Site | | | Action | Date | | | | + +--------+ +--------+------+------+ | potassium chloride (K-DUR) ER | Given | 08/31/19 | 20 mEq | | | | tablet 20 mEq 20 mEq, Oral, | | 18 1:19 | | | | | DAILY, First dose on 08/30/17 | | PM PDT | | | | | at 1315, Tablet may be cut where | | | | | | | scored but do not crush., | | | | | | + +--------+ +--------+------+------+ +---+---+ | | | +---+---+ + +---------+ +---------+-------+---+ | sodium chloride 0.9% (NS) bolus | New Bag | 08/31/19 | 500 mLs | 500 | | | 500 mL 500 mL, Intravenous, | | 18 12:01 | | mL/hr | | | Administer over 1 Hours, ONCE, | | PM PDT | | | | | 08/30/17 at 1155, For 1 dose | | | | | | + +---------+ +---------+-------+---+ +---+---+ | | | +---+---+ documented in this encounter"
--- OUTSIDE RECORDS SUMMARY | ~2019-09-27 | XMS | Encounter Summary ---
Demographics + + + | Address | [address] | | | [place] [address] | + + + | Home Phone [...] Team Providers + +------+ + | Care Communications Advisor Name | Role | Phone | [...] Pituitary | Shashi Witt, | [address] | | | | | adenoma | MD Need | [place], | | | | | ([facility]) | updated | [place] | | | | | Procedures | address | [address] | | | | | MRI Brain w | | Phone: | | | | | wo Contrast | | [phone] | | | | | | | Fax: | | | | | | | [phone] | +--------+--------+ + + + + Reason [...] Pituitary | Shashi Witt, | [address] | | | | | adenoma | MD Need | [place], | | | | | ([facility]) | updated | [place] | | | | | Procedures | address | [address] | | | | | MRI Brain w | | Phone: | | | | | wo Contrast | | [phone] | | | | | | | Fax: | | | | | | | [phone] | +--------+--------+ + + + + Encounter Details +--------+ + + + + | Date | Type | Department | Care Team | Description | +--------+ + + + + | 06/02/ | Hospital | [facility] | Shashi Segovia | Pituitary adenoma | | 2014 | Encounter | MED [facility] MRI [address] MD Need updated | ([facility]) | | | | [place], | address | | | | | [place] [address] | | | | | | [phone] | | | +--------+ + + + [...] | | | | | order to [facility]. | | | | | + [...] | | | | send order to [facility] | | | | | | | [facility]. | | | | | | [...] | | | | | | [place] [address] | | | | | | [phone] | | | | | | | | +--------+---------+ + + + | 03/01/ | Office | Pulmonology | Mukul Clark MD | | | 2020 | Visit | | [address] | | | | | | [place] | | | | | | [address] | | | | | | | [...] CONTRAST | e | 9:50 AM | ([facility]) | procedure are in the | | [...] OF THE BRAIN: 06/02/2014 8:54 AM | [facility] | | CLINICAL HISTORY: pituitary adenoma COMPARISON: 2009 and 2010 | [facility] | | TECHNIQUE: Multiplanar, multisequence imaging of the brain was | MEDICAL CENTER | | performed in the 1.5 T MR scanner before and after the uneventful | - IMAGING | | administration of 10 mL of Gadavist. Dedicated small [id number]-zd-rosm | | | thin section imaging through [...] however similar in appearance to the comparison 2011 exam. No other | | | pituitary [...] Ren MD Electronically signed: 06/02/2014 11:48 AM | | + + + + + | Procedure Note | + + | Reed, Rad Results In - 06/02/2014 11:51 AM PDT UNENHANCED AND ENHANCED MRI OF THE | | BRAIN: 06/02/2014 8:54 AMCLINICAL HISTORY: pituitary adenomaCOMPARISON: 2009 and | | 2011TECHNIQUE: Multiplanar, multisequence imaging of the brain was performed in the1.5 T | | MR scanner before and after the uneventful administration of 10 mL ofGadavist. | | Dedicated small pjqwo-kb-gtjd thin section imaging through thepituitary region before [...] similar in appearanceto | | the comparison 2011 exam. No other pituitary nodularity.No orbital abnormality. [...] similar in appearance | |to the comparison 2011 exam. No other pituitary nodularity. | | [...] | + + + + + | [facility] | [address] [facility] | [place] | [phone] | | [facility] | | [address] | | | - IMAGING | | [...] | | | | PRN, Other, Starting [facility] 06/02/14 | | AM PDT | | | | | at 0934, For 1 dose, MRI | | | | | | + +--------+ +--------+------+------+ +---+---+ | | | +---+---+ documented in this encounter"
--- OUTSIDE RECORDS SUMMARY | ~2019-09-27 | XMS | Encounter Summary ---
Demographics + + + | Address | [address] | | | [place] [address] | + + + | Home Phone [...] Team Providers + +------+ + | Care Datastage Architect Name | Role | Phone | + +------+ + | Juan Cherry DO | PCP | | + +------+ + Reason for Visit +--------+--------+ + | Reason | Onset | Comments | | | Date | | +--------+--------+ + | Other | 11/09/ | Elmiron not covered | | | 2015 | | +--------+--------+ + Encounter Details +--------+ + + + + | Date | Type | Department | Care Team | Description | +--------+ + + + + | 11/09/ | Telephone | [facility] [place] | Andriy Weber | Other ([place] not | | 2015 | | [address] | MD [address] | covered) | | | | [place] | [place] | | | | | [address] | [place] [address] | | | | | [phone] | [phone] | | | | | | | [...] this encounter Miscellaneous Notes Telephone Encounter - Nancy Dalal CMA - 11/13/2015 1:08 PM PDTPt. Was called and notifi ed elephone Encounter - Andriy Weber MD - 11/13/2015 7:31 AM PDTI think it would be fine for her to take oxybutynin for her urinary frequency. The Atarax is useful for the and anti histamine affec t in the bladder wall. Thanks.Electronically signed by Andriy Weber MD at 6 7:32 AM PDTTelephone Encounter - Nancy Dalal CMA - 11/10/2015 2:39 PM PDTElmiron not covered so pt. Is wanting to know if she it to take the Oxybutynin still even though she jenkins sn't think it was helping? She was able to get the Atarax documented in this encounter Plan of Treatment [...] [place] | | | | | | [address] | | | | | | | | +--------+---------+ + + + | 11/24/ | Office | Cardiology | [place], | | | 2019 | Visit | | SINDHU Erickson [address] | | | | | | [place], | | | | | | [place] [address] | | | | | | [phone] | | | | | | | | +--------+---------+ + + + | 03/01/ | Office | Pulmonology | Mukul Clark MD | | | 2020 | Visit | | [address] | | | | | | [place] | | | | | | [address] | | | | | | | | +--------+---------+ + + + documented as of this encounter Visit Diagnoses Not on filedocumented in this encounter"
--- OUTSIDE RECORDS SUMMARY | ~2019-09-27 | XMS | Encounter Summary ---
Demographics + + + | Address | [address] | | | [place] [address] | + + + | Home Phone [...] Team Providers + +------+ + | Care Audiovisual Lead Technician Name | Role | Phone | + +------+ + | Juan Cherry DO | PCP | | + +------+ + Reason for Visit +---------+--------+ + | Reason | Onset | Comments | | | Date | | +---------+--------+ + | Results | 04/12/ | walking oximetry | | | 2013 | | +---------+--------+ + Encounter Details +--------+ + + + + | Date | Type | Department | Care Team | Description | +--------+ + + + + | 04/12/ | Telephone | [facility] [place] | Offenstein, | Results (walking | | 2013 | | PULMONARY [address] | Loreta Alonso MD | oximetry) | | | | [place], | | | | | | [place] [address] | | | | | | [phone] | | | +--------+ + + + [...] Telephone Encounter - Marilyn Osborne RN - 04/12/2013 10:45 AM PSTCalvalentín Ponce and acacia kaplan that Dr London recommends that she start O2 at 3 l/m with exertion for 3 months. N o O2 at rest. Okay per Rosario. documented in this encounter Plan of Treatment +--------+---------+ + + + | Date | Type | Specialty | Care Team | Description | +--------+---------+ + + + | 09/27/ | Office | Sleep Medicine | Meghan Garcia MD | | | 2020 | Visit | | [address] | | | | | | [place] | | | | | | [address] | | | | | | | | +--------+---------+ + + + | 11/24/ | Office | Cardiology | [place], | | | 2019 | Visit | | SINDHU Erickson [address] | | | | | | [place], | | | | | | [place] [address] | | | | | | [phone] | | | | | | | | +--------+---------+ + + + | 03/01/ | Office | Pulmonology | Mukul Clark MD | | | 2020 | Visit | | [address] | | | | | | [place] | | | | | | [address] | | | | | | | | +--------+---------+ + + + + + +--------+ + + | Name | Type | Priori | Associated Diagnoses | Order Schedule | | | | ty | | | + + +--------+ + + | Oxygen Therapy | Respiratory | Routin | Chronic airway | 1 Occurrences | | | Care | e | obstruction, not | starting 04/12/2013 | | | | | elsewhere classified | until 04/12/2014 | | | | | (HCC) | | + + +--------+ + + documented as of this encounter Visit Diagnoses + + | Diagnosis | + + | Chronic airway obstruction, not elsewhere classified - Primary | + + documented in this encounter"
--- OUTSIDE RECORDS SUMMARY | ~2019-09-27 | XMS | Encounter Summary ---
Demographics + + + | Address | [address] | | | [place] [address] | + + + | Home Phone [...] Team Providers + +------+ + | Care Ent Surgeon Name | Role | Phone | + [...] [address] | | | | | [place], | [place] | | | | | [place] [id number] | [id number] | | | | | [phone] | | | +--------+--------+ + + + [...] | | | | | | [place] [address] | | | | | | [phone] | | | | | | | | +--------+---------+ + + + | 03/01/ | Office | Pulmonology | Mukul Clark MD | | | 2020 | Visit | | [address] | | | | | | [place] | | | | | | [phone] | | | | | | | | +--------+---------+ + + + documented as of this encounter Visit Diagnoses Not on filedocumented in this encounter"
--- OUTSIDE RECORDS SUMMARY | ~2019-09-27 | XMS | Encounter Summary ---
Demographics + + + | Address | [address] | | | [place] [address] | + + + | Home Phone [...] Providers + +------+ + | Care Nurse Liaison Name | Role | Phone | + +------+ + | Juan Cherry DO | PCP | | + +------+ + Reason for Visit + + + | Reason | Comments | + + + | Follow-up | Medication review for Interstitial cystitis | + + + Encounter Details +--------+---------+ + + + | Date | Type | Department | Care Team | Description | +--------+---------+ + + + | 05/13/ | Office | [facility] | Andriy Weber | Pyuria (Primary Dx); | | 2017 | Visit | [address] | MD [address] | Interstitial | | | | [place] | [address] | cystitis | | | | [address] | [place] [address] | | | | | [phone] | [phone] | | | | | | | [...] + + + | Blood Pressure | 101/57 | 05/13/2017 8:59 AM | | | | | PDT | | + + + + + | Pulse | 87 | 05/13/2017 8:59 AM | | | | | PDT | | + + + + + | Temperature | - | - | | + + + + + | Respiratory Rate | 16 | 05/13/2017 8:59 AM | | | | | PDT | | + + + + + | Oxygen Saturation | - | - | | + + + + + | Inhaled Oxygen | - | - | | | Concentration | | | | + + + + + | Weight | 76.7 kg (169 lb) | 05/13/2017 8:59 AM | | | | | PDT | | + + + + + | Height | 157.5 cm (5' 2") | 05/13/2017 8:59 AM | | | | | PDT | | + + + + + | Body Mass Index | 30.91 | 05/13/2017 8:59 AM | | | | | PDT [...] encounter Progress Notes Andriy Weber MD - 05/13/2017 9:30 AM PDTFormatting of this note might be differen t from the original. Rosario is a 52 y.o. female patient of Juan Cherry DO being seen today for medicatio n review for Interstitial cystitis. Rosario has been doing well with her interstitial cystitis symptoms with oxybutynin 5 mg b y mouth twice a day, and hydroxyzine 25 mg by mouth daily at bedtime. She ran out of her VeedMe dications approximately 2 weeks ago, and developed increasing difficulty with postvoid spasm , and deep pelvic crampy pain. She finally had her medications renewed 3 days ago, and has yet to feel an improvement. She denies any increasing urgency, or frequency, or dysuria, ju st a slow urinary flow with postvoid spasm. She has not had any fevers or chills, or flank pain. She feels as if she is unable to urinate completely. Her urethra feels tight, sympto matically. Her post void residual today was 72 cc During urologic surgery on November 22, 2015, she had a bladder biopsy, and urethral dilat ation. Pathology was benign, with chronic mucosal inflammation only. We discussed possible bladder installations, or urethral dilatation, and she politely decli venkat due to her current bladder discomfort. She believes that she would like to have a bladd er instillation without DMSO within the next few weeks. 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) ([facility]) (10/28/2012); Bilateral renal cysts; Complex sleep apnea syndrome; COPD (chronic obstructive pulmonary disease) (FORM[facility]LY [facility]) (201 2); Depression; Diverticulitis; Diverticulosis; Emphysema; Fibromyalgia; [...] attacks Medications: Outpatient Encounter Prescriptions as of 05/13/2017 Medication Sig Dispense Refill ADVAIR HFA [id number] [...] takes this da rigoberto Respiratory Therapy Supplies [facility] Please provide patient with necessary CPAP supplies ( she did not specify, okay to send order as appropriate) Diagnosis Code(s)327.23 . Length of Need 99 months. Please send order to [facility]. 1 each 0 Respiratory Therapy Supplies [facility] Change CPAP back to 11-14 cm H2O. All necessary suppl ies. No oxygen bleed in. Diagnosis Code(s)327.23. Length of Need: Lifetime. Please send orde r to [facility]. This is not a new order, [...] facility-administered encounter medications on file as of 05/13/2017. Interstitial Cystitis Symptoms Index (ICSI) During the [...] you finished urinating? [] 0 [] 1 [x] 2 [] 3 [] 4 [] 5 How often did you most typically get up at night to urinate? [] 0 [] 1 [x] 2 [] [...] entries: TOTAL: 11 PHYSICAL EXAM Vitals: BP 101/57 | Pulse 87 | Resp 16 | Ht 1.575 m (5' 2") | Wt 76.7 kg (169 lb) | BM I 30.91 kg/m General: Awake, alert, in no acute distress. Speech is fluent. She wears nasal O2 with a portable respirator. Appears to be stated age. Lungs: Distant sounds. Chest: No rib or bony tenderness. Back: No CVA tenderness. Abdomen: Soft, upper midline abdominal scar well healed (from paraesophageal hernia surger y), suprapubic area is tender to deep palpation, without mass. Extremities: Non-edematous. Neuro: Awake, alert, oriented. Psychiatric: Mood and affect are normal. Skin: Warm and dry, no erythematous rash. Groin: No mass. No lymphadenopathy. DIAGNOSTIC DATA: Urinalysis is negative for blood, nitrites, but does have trace leukocyte esterase this morning. Post void residual is 72 cc. Lab Results Component Value Date CREA 0.72 09/09/2016 BUN 10 09/09/2016 NA 138 09/09/2016 K 3.7 09/09/2016 CL 107 09/09/2016 CO2 23 (L) 09/09/2016 IMPRESSION: Bladder pain and spasm, possible interstitial cystitis Urethral stenosis, mild with postopera tive pain Bronchospastic pulmonary disease, on s teroid inhalers GERD, irritable colon History of bipolar disorder, unspecifi ed PLAN: Rosario would like to continue with her oxybutynin 5 mg by mouth twice a day and h ydroxyzine 25 mg by mouth daily at bedtime for the time being. She stated she would be inte rested in a bladder instillation possibly later on this week. At the time of instillation, we can use a 20 Uzbek catheter to determine urethral patency. I suggested a follow-up in 1 year, or as needed. Rosario is instructed to resume her usual and customary care with her primary care provide r. I asked Rosario to notify me if there were any difficulties voiding, or UTI symptoms, or f lank pain, or for any questions or concerns whatsoever. This document was generated in part using voice recognition software. Although every effor t is made to edit the content, record tabulating clerk errors may occur. Occasional wrong- word or shravan nd-alike substitutions may have occurred due to the inherent limitations of the currently us ed voice recognition software. Please read the chart carefully and recognize, using context, where these substitutions may have occurred. documented in th [...] [place] | | | | | | [address] | | | | | | | | +--------+---------+ + + + | 11/24/ | Office | Cardiology | [place], | | | 2019 | Visit | | SINDHU Erickson [address] | | | | | | [place] | | | | | | [place] [address] | | | | | | [phone] | | | | | | | | +--------+---------+ + + + | 03/01/ | Office | Pulmonology | Mukul Clark MD | | | 2020 | Visit | | [address] | | | | | | [place] | | | | | | [address] | | | | | | | | +--------+---------+ + + + documented as of this encounter Procedures + +--------+ + + + | Procedure Name | Priori | Date/Time | Associated Diagnosis | Comments | | | ty | | | | + +--------+ + + + | POCT URINALYSIS, | Routin | 05/13/2017 | Pyuria | Results for this | | AUTO WITH CONF | e | 9:01 AM | Interstitial | procedure are in the | | | | PDT | cystitis | results section. | + +--------+ + + + | URINALYSIS, | Routin | 05/13/2017 | Pyuria | Results for this | | MICROSCOPIC ONLY, | e | 9:00 AM | Interstitial | procedure are in the | | WITH CULTURE IF | | PDT | cystitis | results section. | | INDICATED | | | | | + +--------+ + + + | IMAGING REPORT - | | 05/13/2017 | | Results for this | | EXTERNAL SCAN | | 12:00 AM | | procedure are in the | | | | PDT | | results section. | + +--------+ + + + documented in this encounter Results POCT Urinalysis Dipstick Automated (05/13/2017 9:01 AM PDT) + + + + + [...] 1.001 - 1.030 | | | | [place], | | | | | | UA, [...] + + | Urine | + + Urinalysis, Microscopic Only, with Culture if Indicated (05/13/2017 9:00 AM PDT) + + + + + [...] + + + + | Squamous | 50-100 (A) | 0 - 2 /LPF | [...] + + + + + + | Amorphous | Few (A) | None Seen /HPF | [facility] | | | Crystals, | | | [facility] | | | Urine | | | [facility] | | | | | | [facility] - | | | | | | LABORATORY | | + + + + + + | Urine | Urine Culture Not | | [facility] | | | Comment | Indicated | | [facility] | | | [...] | [address] | [place] | [phone] | | [facility] | | [address] | | | - LABORATORY | | | | + + + + + IMAGING REPORT - EXTERNAL SCAN (05/13/2017 12:00 AM PDT) + + + | Narrative | Performed At | + + + | Ordered by an | | | unspecified provider. | | + + + documented in this encounter Visit Diagnoses + + | Diagnosis | + + | Pyuria - Primary Other nonspecific finding on examination of urine | + + | Interstitial cystitis Chronic interstitial cystitis | + + documented in this encounter
--- OUTSIDE RECORDS SUMMARY | ~2019-09-27 | XMS | Encounter Summary ---
Demographics + + + | Address | [address] | | | [place] [address] | + + + | Home Phone [...] Team Providers + +------+ + | Care Purse Framer Name | Role | Phone | + +------+ + PCP | Unavailable | + +------+ + Encounter Details +--------+ + + + + | Date | Type | Department | Care Team | Description | +--------+ + + + + | 12/01/ | [facility] | [facility] | | | | 2008 - | Encounter | MED CTR OP REHAB | | | | | | [address] | | | | 12/24/ | | [place] [address] | | | | 2008 | | [phone] | | | +--------+ + + + [...] | | | | | | [place] [address] | | | | | | [phone] | | | | | | | | +--------+---------+ + + + | 03/01/ | Office | Pulmonology | Muukl Clark MD | | | 2020 | Visit | | [address] | | | | | | [place] | | | | | | [address] | | | | | | | | +--------+---------+ + + + documented as of this encounter Visit Diagnoses Not on filedocumented in this encounter"
--- OUTSIDE RECORDS SUMMARY | ~2019-09-27 | XMS | Encounter Summary ---
Demographics + + + | Address | [address] | | | [place] [address] | + + + | Home Phone [...] Team Providers + +------+ + | Care Pipe Line Inspector Name | Role | Phone | + +------+ + | Juan Cherry DO | PCP | | + +------+ + Encounter Details +--------+ + + + + | Date | Type | Department | Care Team | Description | +--------+ + + + + | 09/09/ | Hospital | [facility] GENER[facility] IP | Conversion | Pain | | 2015 | Encounter | CONVERSION [address] | Transaction, | | | | | [address] | Provider Unknown | | | | | [place], [place] | [phone] | | | | | [address] | | | | | | [phone] | | | +--------+ + + + [...] | | | | | order to [facility]. | | | | | [...] | | | | | | [facility]. | | | | | | [...] | Visit | | [address] | | | | | | [place] | | | | | | [address] | | | | | | | | +--------+---------+ + + + | 11/24/ | Office | Cardiology | [place], | | | 2019 | Visit | | SINDHU Erickson [address] | | | | | | [place] | | | | | | [place] [address] | | | | | | [phone] | | | | | | | | +--------+---------+ + + + | 03/01/ | Office | Pulmonology | Mukul Clark MD | | | 2020 | Visit | | [address] | | | | | | [place] | | | | | | [address] | | | | | | | [...]
--- OUTSIDE RECORDS SUMMARY | ~2019-09-27 | XMS | Encounter Summary ---
Demographics + + + | Address | [address] | | | [place] [address] | + + + | Home Phone [...] Providers + +------+ + | Care Tie Man Name | Role | Phone | + +------+ + PCP | Unavailable | + +------+ + Encounter Details +--------+ + + + + | Date | Type | Department | Care Team | Description | +--------+ + + + + | 06/26/ | [facility] | [facility] | | | | 2009 - | Encounter | MED CTR OP REHAB | | | | | | [address] | | | | 07/24/ | | [place] [address] | | | | 2009 | | [phone] | | | +--------+ + + + [...] | | | | | | [place] [address] | | | | | | [phone] | | | | | | | | +--------+---------+ + + + | 03/01/ | Office | Pulmonology | Mukul Clark MD | | | 2020 | Visit | | [address] | | | | | | [place] | | | | | | [address] | | | | | | | | +--------+---------+ + + + documented as of this encounter Visit Diagnoses Not on filedocumented in this encounter"
--- OUTSIDE RECORDS SUMMARY | ~2019-09-27 | XMS | Encounter Summary ---
Demographics + + + | Address | [address] | | | [place] [address] | + + + | Home Phone [...] Team Providers + +------+ + | Care Installation Superintendent Name | Role | Phone | [...] | | | | | [address] | | | | | | [place] [address] | | | | | | [phone] | | | +--------+ + + + [...] Weber, PT - 02[facility]25/2014 10:43 [facility] [address] [place] [address] Physical Therapy Discharge Note Date: 02/25/2014 Patient [...] [place] | | | | | | [address] | | | | | | | | +--------+---------+ + + + | 11/24/ | Office | Cardiology | [place], | | | 2019 | Visit | | SINDHU Erickson [address] | | | | | | [place], | | | | | | [place] [address] | | | | | | [phone] | | | | | | | | +--------+---------+ + + + | 03/01/ | Office | Pulmonology | Mukul Clark MD | | | 2020 | Visit | | [address] | | | | | | [place] | | | | | | [address] | | | | | | | | +--------+---------+ + + + documented as of this encounter Visit Diagnoses Not on filedocumented in this encounter"
--- OUTSIDE RECORDS SUMMARY | ~2019-09-27 | XMS | Encounter Summary ---
Demographics + + + | Address | [address] | | | [place] [address] | + + + | Home Phone [...] Providers + +------+ + | Care Cnc Router Operator Name | Role | Phone | + +------+ + PCP | Unavailable | + +------+ + Encounter Details +--------+ + + + + | Date | Type | Department | Care Team | Description | +--------+ + + + + | 04/13/ | Hospital | [facility] | Lencho Goss MD | | | 2010 | Encounter | MED CTR GENERIC OP | [address], [address] | | | | | CONV DEPT [address] | [address] [place], [place] | | | | | [address] [place], | [address] | | | | | [place] [address] | | | | | | [phone] | | | +--------+ + + + [...] | | | | | | [place] [address] | | | | | | [phone] | | | | | | | | +--------+---------+ + + + | 03/01/ | Office | Pulmonology | Mukul Clark MD | | | 2020 | Visit | | [address] | | | | | | [place] | | | | | | [phone] | | | | | | | | +--------+---------+ + + + documented as of this encounter Visit Diagnoses Not on filedocumented in this encounter"
--- OUTSIDE RECORDS SUMMARY | ~2019-09-27 | XMS | Encounter Summary ---
Demographics + + + | Address | [address] | | | [place] [address] | + + + | Home Phone [...] Team Providers + +------+ + | Care Nipple Maker Name | Role | Phone | + +------+ + | Juan Cherry DO | PCP | | + +------+ + Reason for Visit + +--------+ + | Reason | Onset | Comments | | | Date | | + +--------+ + | Medication Refill | 09/07/ | | | | 2019 | | + +--------+ + Encounter Details +--------+--------+ + + + | Date | Type | Department | Care Team | Description | +--------+--------+ + + + | 09/07/ | Refill | [facility] | [place], | Medication Refill | | 2019 | | CARDIOLOGY [address] | SINDHU Erickson [address] | | | | | [place], | [place], | | | | | [place] [address] | [place] [address] | | | | | [phone] | [phone] | | | | | | | [...] [place] | | | | | | [address] | | | | | | | | +--------+---------+ + + + | 11/24/ | Office | Cardiology | [place] | | | 2019 | Visit | | SINDHU Erickson [address] | | | | | | [place] | | | | | | [place] [address] | | | | | | [phone] | | | | | | | [...]
--- OUTSIDE RECORDS SUMMARY | ~2019-09-27 | XMS | Encounter Summary ---
Demographics + + + | Address | [address] | | | [place] [address] | + + + | Home Phone [...] Team Providers + +------+ + | Care Project Management Director Name | Role | Phone | + +------+ + | Juan Cherry DO | PCP | | + +------+ + Encounter Details +--------+ + + + + | Date | Type | Department | Care Team | Description | +--------+ + + + + | 11/05/ | Hospital | [facility] | Shashi Segovia | Pituitary mass (HCC) | | 2013 | Encounter | MED CTR LABORATORY | MD Miryam Need updated | | | | | [address] | address | | | | | [place] | | | | | | [address] | | | | | | [phone] | | | +--------+ + + + [...] | | | | send order to [facility] | | | | | | | [facility]. | | | | | | [...] by mouth | | 0 | | 07/15/201 | | (SYNTHROID, | every morning | [...] [place] | | | | | | [address] | | | | | | | | +--------+---------+ + + + | 11/24/ | Office | Cardiology | [place], | | | 2019 | Visit | | SINDHU Erickson [address] | | | | | | [place], | | | | | | [place] [address] | | | | | | [phone] | | | | | | | | +--------+---------+ + + + | 03/01/ | Office | Pulmonology | Mukul Clark MD | | | 2020 | Visit | | [address] | | | | | | [place] | | | | | | [phone] | | | | | | | | +--------+---------+ + + + documented as of this encounter Procedures + +--------+ + + + | Procedure Name | Priori | Date/Time | Associated Diagnosis | Comments | | | ty | | | | + +--------+ + + + | PROLACTIN | Routin | 11/05/2013 | Pituitary mass | Results for this | | | e | 11:46 AM | (HCC) | procedure are in the | | | | PDT | | results section. | + +--------+ + + + | INSULIN-LIKE GROWTH | Routin | 11/05/2013 | Pituitary mass | Results for this | | FACTOR 1 | e | 11:46 AM | (HCC) | procedure are in the | | | | PDT | | results section. | + +--------+ + + + | ACTH | Routin | 11/05/2013 | Pituitary mass | Results for this | | | e | 11:46 AM | (HCC) | procedure are in the | | | | PDT | | results section. | + +--------+ + + + documented in this encounter Results Adrenocorticotropic Hormone (11/05/2013 11:46 AM PDT) + [...] | | | | | | Performed: [facility] [address] [address] | | | | | | [address], [place] | | | | | | [address] | | | | + + + + + + + + | Specimen | + + | Blood specimen | | (specimen) | + + + + + + + | Performing | Address | City/State/Zipcode | Phone Number | | Organization | | | | + + + + + | [facility] | [address] | [place] [address] | [phone] | + + + + + Insulin-Like [...] [place], | | | | | | [place] [address] | | | | + + + + + + + + | Specimen | + + | Blood specimen | | (specimen) | + + + + + + + | Performing | Address | City/State/Zipcode | Phone Number | | Organization | | | | + + + + + | [facility] | [address] | [place] [address] | [phone] | + + + + + Prolactin [...] | | | | | | Performed: [facility], [address] | | | | | | [address], [place] | | | | | | [address] | | | | + + + + + + + + | Specimen | + + | Blood specimen | | (specimen) | + + + + + + + | Performing | Address | City/State/Zipcode | Phone Number | | Organization | | | | + + + + + | [facility] | 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
--- OUTSIDE RECORDS SUMMARY | ~2019-09-27 | XMS | Encounter Summary ---
Demographics + + + | Address | [address] | | | [place] [address] | + + + | Home Phone [...] Team Providers + +------+ + | Care Car Tester Name | Role | Phone | [...] + + | 04/06/ | [facility] | Brian Miranda | Sprain of chest wall | | 2014 | Visit | OCCUPATIONAL [facility] | MD Ozzy Need | (Primary Dx); Place | | | | [place] [address] | updated address | of occurrence, | | | | [address] [place] | | industrial places | | | | [place], [place] | | and premises | | | | [address] | | | | | | [phone] | | | +--------+---------+ + + + [...] MD - 04/06/2013 5:30 PM PSTSee dictation [id number] lisha d by Brian Miranda MD at 04/06/2013 5:30 PM Brian Avendano MD - 04/06/19 14 12:00 AM [facility] OCCUPATIONAL MEDICINE [address] [place] [address] FAX: [phone] OFFICE VISIT CLAIM NO: [id number] DATE OF INJURY: 04/05/2013 EMPLOYER: Jelani Alcantara GUARANTOR: Jelani Rojas COMPLAINT: Chest wall sprain, unscheduled visit for followup evaluation and ongoing care. S: The injured worker is 48 years of age who presented without a scheduled appointment at [facility] urgent care/Occ/Med for an evaluation. 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 It was quite p ainful. She was unable to continue to work. She was evaluated in the emergency department a [facility] and that report is available for review. [...] GChris Miranda MD / AP JOB #: [id number] signed by Brian Miranda MD at 04/07/2013 10:26 AM PSTd ocumented in this encounter Miscellaneous Notes Plan of Care - ONBASE SCAN [facility] - 04/06/2013 12:00 AM PST lan of Care - ONBASE SCAN [facility] - 04/06/2013 12:00 AM PSTElect ronically signed by Rolando Pozo at 04/09/2013 4:57 PM PSTPlan of Care - ONBASE SCAN [facility] - 04/06/2013 12:00 AM PST isc ellaneous - ONBASE SCAN [facility] - 04/06/2013 12:00 AM PST documented in this encounter Plan of Treatment [...] [place] | | | | | | [place] [address] | | | | | | [phone] | | | | | | | | +--------+---------+ + + + | 03/01/ | Office | Pulmonology | Mukul Clark MD | | | 2020 | Visit | | [address] | | | | | | [place] | | | | | | [address] | | | | | | | [...]
--- OUTSIDE RECORDS SUMMARY | ~2019-09-27 | XMS | Encounter Summary ---
Demographics + + + | Address | [address] | | | [place] [address] | + + + | Home Phone [...] Team Providers + +------+ + | Care Commercial Account Executive Name | Role | Phone | + +------+ + | Juan Cherry DO | PCP | | + +------+ + Encounter Details +--------+---------+ + + + | Date | Type | Department | Care Team | Description | +--------+---------+ + + + | 02/28/ | Surgery | [facility] | Jared Mcdonough, | [facility] with Radial | | 2014 | | MED CTR CV INTRA OP | MD [address] | approach | | | | [address] | [address] [place], | | | | | [place], [place] | [place] [address] | | | | | [address] | [phone] | | | | | [phone] | | | +--------+---------+ + + + [...] | | | | | order to [facility]. | | | | | [...] | | | [facility]. | | | | | | | [...] to rt foot documented in this encounter H&P Notes Jared Mcdonough MD - 02/28/2014 7:36 AM PSTMs. Malik's chart was reviewed in detail, a nd no changes have occurred since the recent note. Also, she was examined by me today and t here are no changes in the heart and lung exam. Ms. Malik is still appropriate candidate f or left heart catheterization and we will proceed with that today. An explanation of the pr ocedure, including the risks, benifits and alternatives to the procedure were discussed with the patient and consent has been obtained. The risks, benefits and alternatives to moderate anesthesia were explained to the patient Mallampati 1 ASA 2 Typical airway Georgina Lorenzana AR EVENT MANAGEMENT CONSULTANT - 02/22/2014 9:52 AM PST PATIENT NAME: Rosario Malik : 1965: AGE: [...] mg by mouth Daily. Respiratory Therapy Supplies [facility] Incentive spirometer. Please provide instructions in use. Dx: 848.8 MADELEINE: 3 months 1 each 99 Respiratory Therapy Supplies [facility] Please provide patient with necessary CPAP supplies ( she did not specify, okay to send order as appropriate) Diagnosis Code(s)327.23 . Length of Need 99 months. Please send order to [facility]. 1 each 0 Respiratory Therapy Supplies MISC Change CPAP back to 11-14 cm H2O. All necessary suppl ies. No oxygen bleed in. Diagnosis Code(s)327.23. Length of Need: Lifetime. Please send orde r to [facility]. This is not a new order, just [...] She is in a class II-III of [facility] [place] [facility] ation functional class. There is [...] and ventricular function don e at the [facility]. LVEF 78%. C. Holter Monitor 08/16/13 [...] this chart may have been created with [employer] voice recognition software. Occasi onal wrong-word or sound-alike substitutions may have occurred due to the inherent cárdenas itations of voice recognition software. Please read the chart carefully and recognize, using context, where these substitutions have occurred. documented in this encounter Procedure Notes TRINITY WATKINS - 03/01/2014 12:00 AM PST 15 1:58 PM Jared Pham MD - 02/28/2014 9:33 AM PSTAssociated Order(s): CV ADULT CARDIAC CATH DIAG/PCI CARDIAC CATHETERIZATION and CORONARY ANGIOGRAPHY PATIENT NAME/: Rosario Malik, (1965) DATE OF PROCEDURE: 02/28/2014 PERFORMANCE ARCHITECT: Jared Mcdonough MD PROCEDURES PERFORMED: Coronary Angiography Left Heart Catheterization Left Ventriculography Indications: Abnormal stress test DESCRIPTION OF PROCEDURE: Informed consent was obtained from the patient, and a time-out was performed to verify the patient's identification and planned procedure. The patient's right groin was then prepped and draped in the usual sterile fashion, and anesthetized with 1% lidocaine. For arterial a ccess modified Seldinger technique was used to place a 6 Fr. sheath in the right femoral art boyd. Right heart catheterization was not performed on this patient. After crossing the aor tic valve, left ventriculography was performed in the CAMACHO projection. Selective coronary an giogram was then performed in several sagittal and oblique projections. JL-4, 3DRC and pigta il diagnostic catheters were used for this procedure. The patient received a total of 2 mg of Versed and 100 mcg of fentanyl intravenously for conscious sedation during the procedure. A total of 93 mL Omnipaque 350 contrast was utilized. The procedure had no immediate comp lications. At the conclusion of the procedure, the sheath was removed and hemostasis obtained with an Angio Seal. Distal pulses were present and unchanged. FINDINGS: Hemodynamics: Ao - 100/55 mm Hg with a mean of 75 mm Hg LV - 106/0 mm Hg LVEDP - 8 mm Hg Left ventriculography: The left ventricular size and function were normal. LVEF is calcul ated at 60%. There is no mitral valve regurgitation noted. Left main artery: The left main artery is a medium caliber vessel that bifurcates into the left anterior descending artery and left circumflex artery. Left main artery has is free o f disease. Left anterior descending artery: The left anterior descending artery is a medium caliber v essel that wraps around the apex and gives rise to 2 diagonal branches. The vessel has an e ssentially normal appearance. It gives rise to 2 diagonal branches. Left circumflex artery: The left circumflex artery is a medium caliber vessel that is non dominant. The vessel has an essentially normal appearance. It gives rise to 1 OM branches . Right coronary artery: The right coronary artery is a large caliber vessel that is dominan t. The vessel has an essentially normal appearance. It gives rise to a PDA and Posterolat eral branches. CONCLUSIONS: 1. Essentially normal, smoothly contoured coronary arteries 2. There is a right dominate circulation. 3. Normal LV systolic function with an EF of 60% 4. Systemic blood pressure is normal. 5. There was successful Angio Seal placement to the puncture site in the right femoral izzy ry. PLAN: 1. Risk factor modification. ARY CARE PROVIDER: Juan Cherry DO documented in this encounter Miscellaneous Notes Plan of Care - ONBASE SCAN [facility] - 03/01/2014 12:00 AM PST iscellaneous - ONBASE SCAN [facility] - 03/01/2014 12:00 AM PSTElec tronically signed by Rolando Pozo at 03/01/2014 1:58 PM PSTMiscellaneous - ONBASE SCAN [facility] - 03/01/2014 12:00 AM PST do cumented in this encounter Plan of Treatment +--------+---------+ + + + | Date | Type | Specialty | Care Team | Description | +--------+---------+ + + + | 09/27/ | Office | Sleep Medicine | Meghan Garcia MD | | | 2019 | Visit | | [address] | | | | | | [place] | | | | | | [id number] | | | | | | | | +--------+---------+ + + + | 11/24/ | Office | Cardiology | [place] | | | 2019 | Visit | | SINDHU Erickson [address] | | | | | | [address] [place], | | | | | | [place] [address] | | | | | | [phone] | | | | | | | | +--------+---------+ + + + | 03/01/ | Office | Pulmonology | Mukul Clark MD | | | 2020 | Visit | | [address] | | | | | | [place] | | | | | | [address] | | | | | | | [...] + +--------+ + + + | POCT FINGERSTICK INR | Routin | 02/28/2014 | | [...] Rosario Malik, (1965) MEDICAL RECORD NUMBER: | [facility] | | [id number] DATE OF PROCEDURE: 02/28/2014 PERFORMANCE ARCHITECT: | - IMAGING | | Jared Mcdonough [...] Malik, (1965) OF | | PROCEDURE: 02/28/2014PRIMARY FRAME POLISHER: Jared Mcdonough MD PROCEDURES | | PERFORMED:Coronary [...] | [facility] | [address] | [place] | [phone] | | [facility] | | [address] | | | - IMAGING | | [...] | 0.94 | 0.60 - 1.30 | [facility] | | | | | mg/dL | [facility] | | | | | | MEDICAL | | | | | | CENTER - | | | | | | LABORATORY | | + + + + + + | eGFR, | >60Comment: GLOMERULAR | >=60 | [facility] | | | non- | FILTRATION | mL/min/1.73m2 | [facility] | | | [place] | RATE,ESTIMATED | | MEDICAL | | | | mL/min/1.97b9Qnky than | | CENTER - | | [...] | | | | | mg/dL | [facility] | | | | | | MEDICAL [...] + | [facility] | [address] | [place] | [phone] | | [facility] | | [address] | | | - LABORATORY | | | | + + + + + | [facility] | [address] | [place], [place] | | | [facility] | | [address] | | | - LABORATORY | [...]
--- OUTSIDE RECORDS SUMMARY | ~2019-09-27 | XMS | Encounter Summary ---
Demographics + + + | Address | [address] | | | [place] [address] | + + + | Home Phone [...] Team Providers + +------+ + | Care Song And Dance Performer Name | Role | Phone | + +------+ + | Juan Cherry DO | PCP | | + +------+ + Reason for Visit +---------+--------+ + | Reason | Onset | Comments | | | Date | | +---------+--------+ + | Results | 04/13/ | CPAP download | | | 2014 | | +---------+--------+ + Encounter Details +--------+ + + + + | Date | Type | Department | Care Team | Description | +--------+ + + + + | 04/13/ | Telephone | [facility] [place] | [place], | Results (CPAP | | 2013 | | PULMONARY [address] | Loreta Alonso MD | download) | | | | [place], | | | | | | [place] [address] | | | | | | [phone] | | | +--------+ + + + [...] Telephone Encounter - Marilyn Osborne RN - 04/13/2013 11:01 AM PSTCalled Rosario and ad saqibed per Dr London that her CPAP compliance is better and the AHI has decreased some. O ciara per patient. docu mented in this encounter Plan of [...] | | | | | | [place] [address] | | | | | | [phone] | | | | | | | [...]
--- OUTSIDE RECORDS SUMMARY | ~2019-09-27 | XMS | Encounter Summary ---
Demographics + + + | Address | [address] | | | [place] [address] | + + + | Home Phone [...] Providers + +------+ + | Care Tank Builder Name | Role | Phone | + +------+ + | Juan Cherry DO | PCP | | + +------+ + Reason for Visit +--------+--------+ + | Reason | Onset | Comments | | | Date | | +--------+--------+ + | Other | 10/18/ | increased shortness of breath | | | 2013 | | +--------+--------+ + Encounter Details +--------+ + + + + | Date | Type | Department | Care Team | Description | +--------+ + + + + | 10/18/ | Telephone | [facility] | Kevin Sandoval, | Other (increased | | 2013 | | PULMONARY [address] | MD [address] | shortness of breath) | | | | [place], | [place] | | | | | [place] [address] | [id number] | | | | | [phone] | | | +--------+ + + + [...] Telephone Encounter - Marilyn Osborne RN - 10/18/2013 4:59 PM PDTCalled Rosario and re layed this message. Prednisone taper starting at 40 mg daily for 3 days, 30 mg daily for 3 d ays, 20 mg daily for 3 days and 10 mg daily for 3 days called to [facility].Electronically s igned by Marilyn Osborne RN at 10/18/2013 5:02 PM PDTTelephone Encounter - Dedrick Sandoval MD - 10/18/2013 3:59 PM PDTPlease prescribed my standard prednisone taper.Electronical ly signed by Kevin Sandoval MD at 10/18/2013 4:00 PM PDTTelephone Encounter - Yinka Osborne RN - 10/18/2013 2:09 PM PDTGretchen called stating that she has a follow up schedu led for tomorrow and plans to keep that appointment but wanted to report that since Friday s he has been more short of breath. She also had increased cough and mucus in her throat but t he cough and mucus have cleared. Rosario has been using the ProAir 4 times a day and the ne bulizer in between. She states that the increased shortness of breath is with doing everythi ng including talking. Rosario asked if she should do anything different today?Electronicall y signed by Marilyn Osborne RN at 10/18/2013 2:19 PM PDTdocumented in this encounter Plan of [...] | | | | | | [place] [address] | | | | | | [phone] | | | | | | | | +--------+---------+ + + + | 03/01/ | Office | Pulmonology | Mukul Clark MD | | | 2020 | Visit | | [address] | | | | | | [place] | | | | | | [phone] | | | | | | | | +--------+---------+ + + + documented as of this encounter Visit Diagnoses Not on filedocumented in this encounter"
--- OUTSIDE RECORDS SUMMARY | ~2019-09-27 | XMS | Encounter Summary ---
Demographics + + + | Address | [address] | | | [place] [address] | + + + | Home Phone [...] Team Providers + +------+ + | Care Reel Tender Name | Role | Phone | + +------+ + | Juan Cherry DO | PCP | | + +------+ + Encounter Details +--------+ + + + + | Date | Type | Department | Care Team | Description | +--------+ + + + + | 09/09/ | Hospital | [facility] | Conversion | Pain | | 2015 | Encounter | CONVERSION [address] | Transaction, | | | | | [address] | Provider Unknown | | | | | [place], [place] | [phone] | | | | | [address] | | | | | | [phone] | | | +--------+ + + + [...] | | | | | order to [facility]. | | | | | [...] | | | | | | | [facility]. | | | | | | [...] [place] | | | | | | [address] | | | | | | | | +--------+---------+ + + + | 11/24/ | Office | Cardiology | [place], | | | 2019 | Visit | | SINDHU Erickson [address] | | | | | | [place] | | | | | | [place] [address] | | | | | | [phone] | | | | | | | | +--------+---------+ + + + | 03/01/ | Office | Pulmonology | Mukul Clark MD | | | 2020 | Visit | | [address] | | | | | | [place] | | | | | | [address] | | | | | | | | +--------+---------+ + + + documented as of this encounter Procedures + +--------+ + + + | Procedure Name | Priori | Date/Time | Associated Diagnosis | Comments | | | ty | | | | + +--------+ + + + | XR CHEST 1 VIEW | Routin | 03/22/2013 | | Results for this | | | e | 12:50 AM | | procedure are in the | | | | PST | | results section. | + +--------+ + + + documented in this encounter Results XR Chest 1 Vw (03/22/2013 12:50 AM PST) + + | Specimen | [...]
--- OUTSIDE RECORDS SUMMARY | ~2019-09-27 | XMS | Encounter Summary ---
Demographics + + + | Address | [address] | | | [place] [address] | + + + | Home Phone [...] Providers + +------+ + | Care Air Reduction Equipment Operator Name | Role | Phone | + +------+ + | Juan Cherry DO | PCP | | + +------+ + Reason for Visit + +--------+ + | Reason | Onset | Comments | | | Date | | + +--------+ + | Appointment | 08/12/ | Needing to schedule DMSO treatments | | | 2015 | | + +--------+ + Encounter Details +--------+ + + + + | Date | Type | Department | Care Team | Description | +--------+ + + + + | 10/05/ | Telephone | [facility] [place] | Andriy Weber | Appointment (Needing | | 2015 | | [address] | MD [address] | to schedule DMSO | | | | [place] | [address] | treatments) | | | | [address] | [place] [address] | | | | | [phone] | [phone] | | | | | | | [...] Telephone Encounter - Nancy Dalal CMA - 10/06/2015 10:55 AM PDTPt called back and schedu led DMSO instillations elephone Encounter - Nancy Dalal CMA - 10/06/2015 10:07 AM PDTNeeding to schedule DMSO tr eatments x4 starting week of 10/16/15. Left message to call back. documented in this encounter Plan of Treatment [...] [place] | | | | | | [address] | | | | | | | | +--------+---------+ + + + | 11/24/ | Office | Cardiology | [place], | | | 2019 | Visit | | SINDHU Erickson [address] | | | | | | [place], | | | | | | [place] [address] | | | | | | [phone] | | | | | | | | +--------+---------+ + + + | 03/01/ | Office | Pulmonology | Mukul Clark MD | | | 2020 | Visit | | [address] | | | | | | [place] | | | | | | [address] | | | | | | | | +--------+---------+ + + + documented as of this encounter Visit Diagnoses Not on filedocumented in this encounter"
--- OUTSIDE RECORDS SUMMARY | ~2019-09-27 | XMS | Encounter Summary ---
Demographics + + + | Address | [address] | | | [place] [address] | + + + | Home Phone [...] Team Providers + +------+ + | Care Sap Senior Developer Name | Role | Phone | + +------+ + | Juan Cherry DO | PCP | | + +------+ + Encounter Details +--------+ + + + + | Date | Type | Department | Care Team | Description | +--------+ + + + + | 10/08/ | Abstract | [facility] [place] | Shashi Segovia | Emphysema (Primary | | 2013 | | NEUROLOGY ADRIANA | MD Miryam Need updated | Dx); Migraine | | | | [address], | address | | | | | [address] [place] | | | | | | [place] [address] | | | | | | [phone] | | | +--------+ + + + [...] [place] | | | | | | [address] | | | | | | | | +--------+---------+ + + + | 11/24/ | Office | Cardiology | [place], | | | 2020 | Visit | | SINDHU Erickson [address] | | | | | | [place] | | | | | | [place] [address] | | | | | | [phone] | | | | | | | | +--------+---------+ + + + | 03/01/ | Office | Pulmonology | Mukul Clark MD | | | 2020 | Visit | | [address] | | | | | | [place] | | | | | | [address] | | | | | | | [...]
--- OUTSIDE RECORDS SUMMARY | ~2019-09-27 | XMS | Encounter Summary ---
Demographics + + + | Address | [address] | | | [place] [address] | + + + | Home Phone [...] Team Providers + +------+ + | Care Reservation Clerk Name | Role | Phone | [...] + + + + | 05/23/ | Emergency | [facility] | [place], | COPD with acute | | 2013 | | [facility] | Ozzy Kim MD [address] | exacerbation (HCC) | | | | [place] [address] | [facility] | (Primary Dx); COPD | | | | [place], [place] | [place] [address] | exacerbation (HCC) | | | | [address] | [phone] | | | | | [phone] | | | +--------+ + + + [...] + + + | Blood Pressure | 128/56 | 05/23/2013 8:30 PM | | | | | PDT | | + + + + + | Pulse | 113 | 05/23/2013 8:31 PM | | | | | PDT | | + + + + + | Temperature | 36.9 C (98.4 F) | 05/23/2013 7:53 PM | | | | | PDT | | + + + + + | Respiratory Rate | 22 | 05/23/2013 7:53 PM | | | | | PDT | | + + + + + | Oxygen Saturation | 93% | 05/23/2013 8:31 PM | | | | | PDT | | + + + + + | Inhaled Oxygen | - | - | | | Concentration | | | | + + + + + | Weight | 65.3 kg (144 lb) | 05/23/2013 7:53 PM | | | | | PDT | | + + + + + | Height | 157.5 cm (5' 2") | 05/23/2013 7:53 PM | | | | | PDT | | + + + + + | Body Mass Index | 26.34 | 05/23/2013 7:53 PM | | | | | PDT | | + + + + + documented in this encounter Discharge Instructions Instructions Ozzy Louis MD - 05/23/2013Use her nebulizers regularly. Start prednisone tomorrow if not improved. Followup with Dr. London or Dr. Cherry AttachmentsThe following attachments cannot be sent through Care Everywhere.COPD FLARE (AMNA JACKELYN)documented in this encounter Medications at Time of [...] | | | | | order to [facility]. | | | | | [...] | | send order to [facility] | | | | | | | [facility]. | | | | | | | [...] orally daily | 30 | 0 | 05/24/19 | | | (DELTASONE) 10 mg | for 3 days then | tablet | | 14 | 4 | | tabletIndications: | decrease by 1 tab | | | | | | COPD exacerbation | every 3 days. | | | | | | (FORMERLY [facility]) | | | | | | + [...] documented as of this encounter ED Notes Coreen Ren RN - 05/23/2013 8:19 PM PDTCalled xray to let them know patient was now re abbie after breathing treatment. Patient reports feeling much better, breathing better, tachy pnea still present. Patient states she would like to go home and give nebs to herself, will wait for xray first. Ozzy Turk MD - 05/23/2013 7:53 PM PDT eMERGENCY dEPARTMENT eNCOUnter CHIEF COMPLAINT Chief Complaint Patient presents with Shortness of Breath ED Room: ED05/ED05 HPI Rosario Malik is a 48 y.o. female who presents with shortness of breath. 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 She has a history of COPD, most re cently finished a course of steroids about 3 weeks ago. She has had a slightly increasing c ough with productivity to it. She has not had fevers or chills. She does not have chest pa in or pleuritic pain. No abdominal pain, nausea, vomiting, diarrhea. PAST MEDICAL HISTORY Past Medical History Diagnosis [...] [facility] along with hypothyroidism SURGICAL HISTORY Past Surgical History Procedure Date Hammertoe repair Hiatal hernia repair Hiatal hernia Kirk and bso Ovarian cysts, not cancer Colonoscopy 03/2010 Colonoscopy [facility] CURRENT MEDICATIONS Previous Medications ADVAIR DISKUS 500-50 MCG/DOSE DISKUS INHALER INHALE 1 PUFF BY MOUTH TWICE DAILY ALBUTEROL (PROAIR HFA) 90 MCG/PUFF INHALER Inhale 2 puffs into the lungs every 6 hours as needed for Wheezing or Shortness of Breath. ALBUTEROL 2.5 MG/3 ML NEBULIZER SOLUTION Take 3 mLs by nebulization every 6 hours as ne eded for Wheezing or Shortness of Breath. CETIRIZINE (ZYRTEC) 10 MG TABLET Take 1 tablet by mouth Daily. DULOXETINE (CYMBALTA) 60 MG CAPSULE Take one by mouth daily GABAPENTIN (NEURONTIN) 800 MG TABLET Take 800 mg by mouth 3 times daily. HYDROCODONE-ACETAMINOPHEN (NORCO) 5-325 MG PER TABLET Take 1 tablet by mouth every 6 ho urs as needed. LEVOTHYROXINE (SYNTHROID, LEVOTHROID) 75 MCG TABLET Take 75 mcg by mouth every morning (before breakfast). MULTIPLE VITAMINS-MINERALS (MULTIVITAMIN PO) Take by mouth Daily. OMEPRAZOLE (PRILOSEC) 20 MG CAPSULE Take 20 mg by mouth Daily as needed. OXYCODONE-ACETAMINOPHEN (PERCOCET) 5-325 MG PER TABLET Take 1 tablet by mouth every 6 h ours as needed for Pain. RESPIRATORY THERAPY SUPPLIES [facility] Change CPAP back to 11-14 cm H2O. All necessary suppl ies. No oxygen bleed in. Diagnosis Code(s)327.23. Length of Need: Lifetime. Please send orde r to [facility]. This is not a new order, just a change in settings. RESPIRATORY THERAPY SUPPLIES [facility] Please provide patient with necessary CPAP supplies ( she did not specify, okay to send order as appropriate) Diagnosis Code(s)327.23 . Length of Need 99 months. Please send order to [facility]. RESPIRATORY THERAPY SUPPLIES [facility] Incentive spirometer. Please provide instructions in use. 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 REVIEW OF SYSTEMS As in history of present illness. A 10 system review was otherwise negative. PHYSICAL EXAM VITAL SIGNS: (first vital signs):Temp: 36.9 C (98.4 F) Pulse: 121 Resp: 22 SpO2: 93 % BP: 129/49 mmHg Constitutional: Well developed, Well nourished, No acute distress, Non-toxic appearance. HEENT: Atraumatic, PERRL, Oropharynx benign. Neck: Supple with full range of motion. No JVD, lymphadenopathy, or meningismus. Respiratory: Good air movement bilaterally. Diffuse inspiratory and expiratory wheezes, n o rales. Cardiovascular: Normal S1 S2 Abdomen: Soft, nontender. No rebound, guarding, or masses. Bowel tones normal. No pulsa tile masses Back: No CVA tenderness. No midline thoracic or lumbar spinal tenderness. Extremities: Nontender. No edema or calf asymmetry. Neurologic: Alert & oriented. Cranial nerves II-XII intact. Gait and speech are normal. No focal deficits. Psychiatric: Normal mood, affect and judgement. RADIOLOGY Chest x-ray shows mild emphysematous changes, no focal infiltrates. ED COURSE & MEDICAL DECISION MAKING Pertinent Labs & Imaging studies were reviewed. (See chart for details) Medications and Allergy list reviewed. Nurses note and old records were reviewed EMS Note reviewed: N/A Assisted records reviewed: N/A The patient received a DuoNeb and some Solu-Medrol, she was feeling dramatically improved. Her chest x-ray was normal. She was requesting to be discharged home to do nebulizer treat ments at home. I think that's acceptable, and I discussed with her that I have written a pr escription for prednisone. If she is not feeling improved tomorrow she should start another prednisone taper. Last Set of Vital Signs: Temp: 36.9 C (98.4 F) Pulse: 121 Resp: 22 SpO2: 93 % BP: 129 /49 mmHg FINAL IMPRESSION 1. COPD with acute exacerbation (HCC) 2. 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 States she had been having difficulty breathing off and on for past few days. documented in this en counter Plan of [...] [place] | | | | | | [id number] | | | | | | | | +--------+---------+ + + + | 11/24/ | Office | Cardiology | [place], | | | 2019 | Visit | | SINDHU Erickson [address] | | | | | | [place] | | | | | | [place] [address] | | | | | | [phone] | | | | | | | | +--------+---------+ + + + | 03/01/ | Office | Pulmonology | Mukul Clark MD | | | 2020 | Visit | | [address] | | | | | | [place] | | | | | | [phone] | | | | | | | | +--------+---------+ + + + documented as of this encounter Procedures + +--------+ + + + | Procedure Name | Priori | Date/Time | Associated Diagnosis | Comments | | | ty | | | | + +--------+ + + + | XR CHEST AP PORTABLE | STAT | 05/23/2013 | | Results for this | | | | 8:28 PM | | procedure are in the | | | | PDT | | results section. | + +--------+ + + + documented in this encounter Results XR Chest AP Portable (05/23/2013 8:28 PM PDT) + + | Specimen | + + | | + + + + + | Narrative | Performed At | + + + | XR CHEST AP PORTABLE 05/23/2013 7:55 PM HISTORY: Shortness of | MISCELANIOUS | | breath. COMPARISON: None. Findings: The heart is not | LAB | | enlarged. Aorta is normal. Mediastinum is unremarkable. Central | | | pulmonary vasculature is normal. There is a tiny amount of airspace | | | disease in the left lung base that could potentially represent | | | atelectasis, although pneumonitis cannot be entirely excluded. | | | Bilateral lungs are clear with no evidence for pleural effusion or | | | pneumothorax. There are no acute osseous abnormalities. | | | IMPRESSION - TINY AMOUNT OF AIRSPACE DISEASE IN LEFT LUNG BASE THAT | | | LIKELY REPRESENTS ATELECTASIS, ALTHOUGH PNEUMONITIS CANNOT BE | | | ENTIRELY EXCLUDED. Dictated and Signed by: Kobe Lentz MD | | | Electronically signed: 05/24/2013 8:40 AM | | + + + + + | Procedure Note | + + | Reed, Rad Results In - 05/24/2013 8:43 AM PDT XR CHEST AP PORTABLE 05/23/2013 7:55 PM | | | | HISTORY: Shortness of breath. | | | | COMPARISON: None. | | | | Findings: | | The heart is not enlarged. Aorta is normal. Mediastinum is unremarkable. Central | | pulmonary vasculature is normal. There is a tiny amount of airspace disease in | | the left lung base that could potentially represent atelectasis, although | | pneumonitis cannot be entirely excluded. Bilateral lungs are clear with no | | evidence for pleural effusion or pneumothorax. There are no acute osseous | | abnormalities. | | | | IMPRESSION - | | TINY AMOUNT OF AIRSPACE DISEASE IN LEFT LUNG BASE THAT LIKELY REPRESENTS | | ATELECTASIS, ALTHOUGH PNEUMONITIS CANNOT BE ENTIRELY EXCLUDED. | | | | | | Dictated and Signed by: Kobe Lentz MD | | Electronically signed: 05/24/2013 8:40 AM | + + + +---------+ + + | Performing | Address | City/State/Zipcode | Phone Number | | Organization | | | | + +---------+ + + | [facility] | | | [phone] | + +---------+ + + | [facility] | | | [phone] | + +---------+ + + documented in this encounter Visit Diagnoses + + | Diagnosis | + + | COPD with acute exacerbation (HCC) - Primary Obstructive chronic bronchitis with | | exacerbation | + + | COPD exacerbation (HCC) Obstructive chronic bronchitis with exacerbation | + + documented in this encounter Administered Medications + +--------+ +-------+------+------+ | Medication Order | MAR | Action | Dose | Rate | Site | | | Action | Date | | | | + +--------+ +-------+------+------+ | albuterol-ipratropium (DUONEB) | Given | 05/24/19 | 3 mLs | | | | 2.5-0.5 mg/3 mL nebulizer | | 14 7:58 | | | | | solution 3 mL 3 mL, | | PM PDT | | | | | Nebulization, RT Once, Sun | | | | | | | 05/23/13 at 2014, For 1 dose, RT | | | | | | | will administer., | | | | | | + +--------+ +-------+------+------+ +---+---+ | | | +---+---+ + +-------+ +--------+---+---+ | methylPREDNISolone sodium | Given | 05/24/19 | 125 mg | | | | succinate (solu-MEDROL) 62.5 | | 14 8:03 | | | | | mg/mL injection 125 mg 125 mg, | | PM PDT | | | | | Intravenous, ONCE, 05/23/13 at | | | | | | | 2015, For 1 dose, Mix with 2 mL | | | | | | | provided diluent to make 62.5 | | | | | | | mg/mL., | | | | | | + +-------+ +--------+---+---+ +---+---+ | | | +---+---+ documented in this encounter
--- OUTSIDE RECORDS SUMMARY | ~2019-09-27 | XMS | Encounter Summary ---
Demographics + + + | Address | [address] | | | [place] [address] | + + + | Home Phone [...] + +------+ + | Care Quality Control Tester Name | Role | Phone | + +------+ + | Juan Cherry DO | PCP | | + +------+ + Reason for Visit +--------+--------+ + | Reason | Onset | Comments | | | Date | | +--------+--------+ + | Other | 06/27/ | | | | 2018 | | +--------+--------+ + Encounter Details +--------+ + + + + | Date | Type | Department | Care Team | Description | +--------+ + + + + | 06/27/ | Telephone | [facility] | Andriy Weber | Leora | | 2018 | | [address] | [address] | | | | | [place] | [place] | | | | | [address] | [place] [address] | | | | | [phone] | [phone] | | | | | | | [...] Telephone Encounter - Nancy Dalal CMA - 06/27/2017 10:15 AM PDTPt. Is calling with zuleyma ramirez pain that started 2-3 hours ago. She states that it occasionally radiates to her sides and back. She has been taking Hydroxizine and only 1 Oxybutynin at night. She wonders if she sh ould take the second one allowed since she will be home all day. I called and spoke to Dr. Derik warren. He states that taking the second Oxybutynin would be fine and that she should come in to leave a UA to check for infection. Rosario was called back and will be able to come in t brannon. If she continues to have any pain and unable to urinate she will need to go to the ER. documented in this enc ounter Plan of [...] [place] | | | | | | [address] | | | | | | | | +--------+---------+ + + + | 11/24/ | Office | Cardiology | [place], | | | 2019 | Visit | | SINDHU Erickson [address] | | | | | | [place], | | | | | | [place] [address] | | | | | | [phone] | | | | | | | | +--------+---------+ + + + | 03/01/ | Office | Pulmonology | Mukul Clark MD | | | 2020 | Visit | | [address] | | | | | | [place] | | | | | | [phone] | | | | | | | | +--------+---------+ + + + documented as of this encounter Visit Diagnoses Not on filedocumented in this encounter"
--- OUTSIDE RECORDS SUMMARY | ~2019-09-27 | XMS | Encounter Summary ---
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 | Shashi Segovia | Headache; | | 2013 | Encounter | [facility] [address] | MD [address] updated | Pituitary tumor | | | | [place], | address | | | | | [place] [address] | | | | | | [phone] | | | +--------+ + + + [...] | | | | | order to [facility]. | | | | | + + [...] | | | | send order to [facility] | | | | | | | [...] documented as of this encounter Miscellaneous Notes Miscellaneous - TRINITY WATKINS - 01/07/2014 12:00 AM PST documented in this encounter [...] [place] | | | | | | [address] | | | | | | | | +--------+---------+ + + + | 11/24/ | Office | Cardiology | [place], | | | 2019 | Visit | | SINDHU Erickson [address] | | | | | | [place] | | | | | | [place] [address] | | | | | | [phone] | | | | | | | | +--------+---------+ + + + | 03/01/ | Office | Pulmonology | Mukul Clark MD | | | 2020 | Visit | | [address] | | | | | | [place] | | | | | | [address] | | | | | | | [...] + | [facility] LAB | | | [phone] | + +---------+ + + | MISCELANIOUS LAB | | | [phone] | + +---------+ + + documented in [...] PDT | | | | | Starting 12/17/13 at 1434, | | | | | | | For 1 dose, Cat Scanner | | | | | | + +--------+ +--------+------+------+ +---+---+ | | | +---+---+ documented in this encounter"
--- OUTSIDE RECORDS SUMMARY | ~2019-09-27 | XMS | Encounter Summary ---
Demographics + + + | Address | [address] | | | [place] [address] | + + + | Home Phone [...] Providers + +------+ + | Care Software Release Manager Name | Role | Phone | + +------+ + PCP | Unavailable | + +------+ + Encounter Details +--------+ + + + + | Date | Type | Department | Care Team | Description | +--------+ + + + + | 09/27/ | [facility] | [facility] | | | | 2009 | Encounter | MED CTR LABORATORY | | | | | | [address] | | | | | | [place] | | | | | | [address] | | | | | | [phone] | | | +--------+ + + + [...] | | | | | | [place] [address] | | | | | | [phone] | | | | | | | | +--------+---------+ + + + | 03/01/ | Office | Pulmonology | Mukul Clark MD | | | 2020 | Visit | | [address] | | | | | | [place] | | | | | | [address] | | | | | | | | +--------+---------+ + + + documented as of this encounter Visit Diagnoses Not on filedocumented in this encounter"
--- OUTSIDE RECORDS SUMMARY | ~2019-09-27 | XMS | Encounter Summary ---
Demographics + + + | Address | [address] | | | [place] [address] | + + + | Home Phone [...] Providers + +------+ + | Care Gas Turbine Powerplant Mechanic Name | Role | Phone | [...] | Cardiac | Diagnoses | Sharonda, | Wsp | | | Services | Rehabilitatio | Chronic | MD Jared | Cardiopulmona | | | Required | n | obstructive | [address] | | | | | pulmonary | [address] | [address] | | | | | disease, | [place], | [place], [place] | | | | | unspecified | [place] [address] | [address] | | | | | COPD type | Phone: | Phone: | | | | | ([facility]) | [phone] | [phone] | | | | | | Fax: | Fax: | | | | | | [phone] | [phone] | +--------+ + + + + + Encounter Details +--------+ + + + + | Date | Type | Department | Care Team | Description | +--------+ + + + + | 02/03/ | Orders Only | [facility] [place] | Jared Mcdonough, | Chronic obstructive | | 2015 | | CARDIOLOGY [address] | pulmonary disease, | | | | [place], | [place], | unspecified COPD | | | | [place] [address] | [place] [address] | type (HCC) (Primary | | | | [phone] | [phone] | Dx) | | | | | | | [...] | | | | | | [place] [address] | | | | | | [phone] | | | | | | | | +--------+---------+ + + + | 03/01/ | Office | Pulmonology | Mukul Clark MD | | | 2020 | Visit | | [address] | | | | | | [place] | | | | | | [address] | | | | | | | | +--------+---------+ + + + + + +--------+ + + | Name | Type | Priori | Associated Diagnoses | Order Schedule | | | | ty | | | + + +--------+ + + | AMB REFERRAL TO [facility] | Outpatient | Routin | Chronic | Ordered: 02/03/2015 | | CARDIOPULMONARY REHA | Referral | e | obstructive | | | | | [...]
--- OUTSIDE RECORDS SUMMARY | ~2019-09-27 | XMS | Encounter Summary ---
Demographics + + + | Address | [address] | | | [place] [address] | + + + | Home Phone [...] Providers + +------+ + | Care Assistant Professor Of Chemistry Name | Role | Phone | + +------+ + | Juan Cherry DO | PCP | | + +------+ + Reason for Visit + +--------+ + | Reason | Onset | Comments | | | Date | | + +--------+ + | Records Request | 08/23/ | | | | 2013 | | + +--------+ + Encounter Details +--------+ + + + + | Date | Type | Department | Care Team | Description | +--------+ + + + + | 08/23/ | Telephone | [facility] | Jared Mcdonough, | Records Request | | 2013 | | CARDIOLOGY [address] | [address] [place] | | | | | [place], | [place], | | | | | [place] [address] | [place] [address] | | | | | [phone] | [phone] | | | | | | | [...] Notes Telephone Encounter - Cydney Burnett - 08/23/2013 12:31 PM PDTFaxed to [facility] fax number [phone]: Chart Notes 08-12-13 Dr Sanchez Requested by phone call from Dr. Lee.Electronically signed by Cydney Burnett at 12:33 PM PDTdocumented in this encounter Plan of Treatment +--------+---------+ + + + | Date | Type | Specialty | Care Team | Description | +--------+---------+ + + + | 09/27/ | Office | Sleep Medicine | Meghan Garcia MD | | | 2020 | Visit | | [address] | | | | | | [place] | | | | | | [address] | | | | | | | | +--------+---------+ + + + | 11/24/ | Office | Cardiology | [place], | | | 2019 | Visit | | SINDHU Erickson [address] | | | | | | [place], | | | | | | [place] [address] | | | | | | [phone] | | | | | | | | +--------+---------+ + + + | 03/01/ | Office | Pulmonology | Mukul Clark MD | | | 2020 | Visit | | [address] | | | | | | [place] | | | | | | [address] | | | | | | | | +--------+---------+ + + + documented as of this encounter Visit Diagnoses Not on filedocumented in this encounter"
--- OUTSIDE RECORDS SUMMARY | ~2019-09-27 | XMS | Encounter Summary ---
Demographics + + + | Address | [address] | | | [place] [address] | + + + | Home Phone [...] Team Providers + +------+ + | Care Passenger Flagman Name | Role | Phone | + +------+ + | Juan Cherry DO | PCP | | + +------+ + Reason for Visit +--------+--------+ + | Reason | Onset | Comments | | | Date | | +--------+--------+ + | Other | 08/09/ | Initial Intake | | | 2013 | | +--------+--------+ + Encounter Details +--------+ + + + + | Date | Type | Department | Care Team | Description | +--------+ + + + + | 08/09/ | Telephone | [facility] | Jared Mcdonough, | Other (Initial | | 2013 | | [facility] [address] [place] | Intake) | | | | [place], | [place], | | | | | [place] [address] | [place] [address] | | | | | [phone] | [phone] | | | | | | | [...] this encounter Miscellaneous Notes Telephone Encounter - Jcakie Prescott Master of [employer] - 08/09/2013 9:04 AM PDTLeft voicehi il for patient to call back for Initial intake. documented in this encounter Plan of Treatment +--------+---------+ + + + | Date | Type | Specialty | Care Team | Description | +--------+---------+ + + + | 09/27/ | Office | Sleep Medicine | Meghan Garcia MD | | | 2019 | Visit | | [address] | | | | | | [place] | | | | | | [address] | | | | | | | | +--------+---------+ + + + | 11/24/ | Office | Cardiology | [place], | | | 2019 | Visit | | SINDHU Erickson [address] | | | | | | [place], | | | | | | [place] [address] | | | | | | [phone] | | | | | | | [...]
--- OUTSIDE RECORDS SUMMARY | ~2019-09-27 | XMS | Encounter Summary ---
Demographics + + + | Address | [address] | | | [place] [address] | + + + | Home Phone [...] Team Providers + +------+ + | Care Burnisher Name | Role | Phone | + +------+ + | Juan Cherry DO | PCP | | + +------+ + Reason for Visit + +--------+ + | Reason | Onset | Comments | | | Date | | + +--------+ + | Medication Refill | 11/23/ | | | | 2014 | | [...] [address] | | | | | [place], | [place], [place] | | | | | [place] [address] | [address] | | | | | [phone] | | | +--------+--------+ + + + [...] | Visit | | [address] | | | | | | [place] | | | | | | [address] | | | | | | | | +--------+---------+ + + + | 10/01/ | Office | Cardiology | [place], | | | 2019 | Visit | | SINDHU Erickson [address] | | | | | | [place] | | | | | | [place] [address] | | | | | | [phone] | | | | | | | [...]
--- OUTSIDE RECORDS SUMMARY | ~2019-09-27 | XMS | Encounter Summary ---
Demographics + + + | Address | [address] | | | [place] [address] | + + + | Home Phone [...] Team Providers + +------+ + | Care Paper Bag Maker Name | Role | Phone | [...] | Specialty | Physical | Diagnoses | Ruth, | [facility] | | | Services | Therapy / | Sprain of | Brian | Pt Op [address] | | | Required | Rehabilitatio | chest wall | MD Ozzy | [address] | | | | n | Place of | Need updated | [place], | | | | | occurrence, | address | [place] [address] | | | | | industrial | | Phone: | | | | | places and | | [phone] | | | | | premises | | Fax: | | | | | | | [phone] | +--------+ + + + + + + + | Scheduling Instructions | + + | [facility], eval and tx, 6-12 sessions, dx: Chest wall sprain | + + Reason for Visit + + + | Reason | Comments | + + + | Chest Injury | | + + + Encounter Details +--------+---------+ + + + | Date | Type | Department | Care Team | Description | +--------+---------+ + + + | 04/30/ | Office | [facility] | Brian Miranda | Sprain of chest wall | | 2013 | Visit | [facility] | MD Ozzy Need | (Primary Dx); Place | | | | [place] [address] | updated address | of occurrence, | | | | [address] [place] | | industrial places | | | | [place], [place] | | and premises | | | | [address] | | | | | | [phone] | | | +--------+---------+ + + + [...] + + + | Blood Pressure | 93/59 | 04/30/2013 8:04 AM | | | | | PST | | + + + + + | Pulse | 98 | 04/30/2013 8:04 AM | | | | | PST | | + + + + + | Temperature | 36.3 C (97.4 F) | 04/30/2013 8:04 AM | | | | | PST | | + + + + + | Respiratory Rate | 20 | 04/30/2013 8:04 AM | | | | | PST | | + + + + + | Oxygen Saturation | - | - | | + + + + + | Inhaled Oxygen | - | - | | | Concentration | | | | + + + + + | Weight | 64.9 kg (143 lb) | 04/30/2013 8:04 AM | | | | | PST | | + + + + + | Height | 157.5 cm (5' 2") | 04/30/2013 8:04 AM | | | | | PST | | + + + + + | Body Mass Index | 26.16 | 04/30/2013 8:04 AM | | | | | PST | | + + + + + documented in this encounter Progress Notes Brian Miranda MD - 04/30/2013 6:41 PM PSTClaim [place]: [id number] Date of injury: 04/05/13 Employer:[employer] Guarantor: [employer] Complaint: Chest wall sprain, scheduled followup Subjective: Injured worker is 48 here for a scheduled followup she was last seen 2 weeks ag o. She states that she's not made any improvement. Pain levels are an 8 on 0-to-10 scale. She stated that she needs an MRI performed. She reports no new symptoms since her last jacques luation. Treatment has been conservative with application of cold packs warm packs and medi cations. 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 Objective: General: No acute distress, but again she displays significant pain behavior sym ptomatology of localization of discomfort with him nocuous movements. Skin: Warm and dry Neck: Supple Chest: Normal to inspection she allows me to palpate the chest wall which shows no acute te nderness but some increased discomfort with palpation over the midsternal area. Lungs are c lear and auscultation at this time, and it's noted that she's able to perform a deeper breat h and inspiration. Cardiac: Regular rhythm no click murmur or rub Abdomen: Soft nontender no masses organomegaly bowel sounds are normal Imaging/diagnostics none indicated for purposes of our evaluation this date. Time was spen t describing to the injured worker the indications for danced imaging studies, and I don't b elieve those are present at this time. After answering some questions she voiced her reluct ant understanding and agreement. Pending interventions: Conservative treatment continued, with adjustments as noted below. Assessment: Chest wall sprain, slow progress premises I did point out to the injured worker there examination findings suggest a significant decrease in pain levels compared to her in itial evaluations in the ( Plan: Continue conservative treatment, referral for physical therapy services were believe modalities may help her to tolerate her discomfort more easily, while she goes to the healin g process. She'll continue on work restrictions followup in 4 weeks' period of time. Employment: Modified duty Restrictions: 10 pound lifting, no exertional pushing or pulling. Impairment undetermined. Unlikely based on current objective findings, she's not yet MMI status for the above reaso ns. documented in this encounter Miscellaneous Notes Plan of Care - ONBASE SCAN [facility] - 04/30/2013 12:00 AM PST lan of Care - ONBASE SCAN [facility] - 04/30/2013 12:00 AM PSTElect ronically signed by Rolando Pozo at 05/10/2013 4:53 PM PDTPlan of Care - ONBASE SCAN [facility] - 04/30/2013 12:00 AM PST lan of Care - [facility] - 04/30/2013 12:00 AM PSTElectronically signed by Rolando Pozo a t 05/10/2013 4:53 PM PDTdocumented in this encounter Plan of [...] | | | | | | [place] [address] | | | | | | [phone] | | | | | | | | +--------+---------+ + + + | 03/01/ | Office | Pulmonology | Mukul Clark MD | | | 2020 | Visit | | [address] | | | | | | [place] | | | | | | [address] | | | | | | | | +--------+---------+ + + + + + +--------+ + + | Name | Type | Priori | Associated Diagnoses | Order Schedule | | | | ty | | | + + +--------+ + + | Ambulatory referral | Outpatient | Routin | Sprain of chest | Ordered: 04/30/2013 | | to Physical Therapy | Referral | e | wall Place of | | | | | | occurrence, | | | | | | industrial places | | | | | | and premises | | + + +--------+ + + documented as of this encounter Visit Diagnoses + + | Diagnosis | + + | Sprain of chest wall - Primary Other specified sites of sprains and strains | + + | Place of occurrence, industrial places and premises | + + documented in this encounter
--- OUTSIDE RECORDS SUMMARY | ~2019-09-27 | XMS | Encounter Summary ---
Demographics + + + | Address | [address] | | | [place] [address] | + + + | Home Phone [...] Providers + +------+ + | Care Street Photographer Name | Role | Phone | [...] + | 07/03/ | Office | 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 She was very [...] error. I had her work with a diet technician registered to ensure that she was fitting her [...] month, sooner prn. Fifteen minutes were spent aqwy-lu-ndnt, wit h the majority of time spent in counseling. Maxim Delgado PA-C cc: DO Loreta Guillaume MD documented in this enco unter Miscellaneous Notes Miscellaneous - [facility]AT[facility] - 07/03/2012 12:00 AM PDT documented in this encounter [...] [place] | | | | | | [id number] | | | | | | | | +--------+---------+ + + + | 11/24/ | Office | Cardiology | [place], | | | 2019 | Visit | | SINDHU Erickson [address] | | | | | | [place], | | | | | | [place] [address] | | | | | | [phone] | | | | | | | [...]
--- OUTSIDE RECORDS SUMMARY | ~2019-09-27 | XMS | Encounter Summary ---
Demographics + + + | Address | [address] | | | [place] [address] | + + + | Home Phone [...] Team Providers + +------+ + | Care Injection Molding Process Technician Name | Role | Phone | + +------+ + | Juan Cherry DO | PCP | | + +------+ + Encounter Details +--------+ + + + + | Date | Type | Department | Care Team | Description | +--------+ + + + + | 07/15/ | Hospital [facility] | Kevin Sandoval, | COPD (chronic | | 2014 | Encounter | MED CTR PULMONARY | MD [address] | obstructive | | | | FUNCTION [address] | [place] | pulmonary disease); | | | | [place], | [address] | Hypoxemia | | | | [place] [address] | | | | | | [phone] | | | +--------+ + + + [...] | | | | order to [facility]. | | | | | + [...] | | | send order to [facility] | | | | | | | [facility]. | | | | | [...] [place] | | | | | | [id number] | | | | | | | | +--------+---------+ + + + | 11/24/ | Office | Cardiology | [place], | | | 2019 | Visit | | SIND[address] Erickson [address] | | | | | | [place], | | | | | | [place] [address] | | | | | | [phone] | | | | | | | | +--------+---------+ + + + | 03/01/ | Office | Pulmonology | Mukul Clark MD | | | 2020 | Visit | | [address] | | | | | | [place] | | | | | | [address] | | | | | | | | +--------+---------+ + + + documented as of this encounter Procedures + +--------+ + + + | Procedure Name | Priori | Date/Time | Associated Diagnosis | Comments | | | ty | | | | + +--------+ + + + | PFT PULMONARY | JOHNNY | 07/15/2013 | COPD (chronic | | | FUNCTION TESTING | | 8:29 AM | obstructive | | | ORDERS | | PDT | pulmonary disease) | | | | | | Hypoxemia | | + +--------+ + + + documented in this encounter Visit Diagnoses + + | Diagnosis | + + | COPD (chronic obstructive pulmonary disease) Chronic airway obstruction, not | | elsewhere classified | + + | Hypoxemia | + + documented in this encounter"
--- OUTSIDE RECORDS SUMMARY | ~2019-09-27 | XMS | Encounter Summary ---
Demographics + + + | Address | [address] | | | [place] [address] | + + + | Home Phone [...] Team Providers + +------+ + | Care Welder Tack Name | Role | Phone | + +------+ + | Juan Cherry DO | PCP | | + +------+ + Encounter Details +--------+ + + + + | Date | Type | Department | Care Team | Description | +--------+ + + + + | 02/12/ | Hospital | [facility] | Nestor Martinez, | | | 2012 | Encounter | MED CTR EMERGENCY | MD [address] | | | | | CENTER [address] | [place], [place] | | | | | [place], [place] | [address] | | | | | [address] | | | | | | [phone] | | | +--------+ + + + [...] | | | | | order to [facility]. | | | | | + [...] documented as of this encounter ED Notes Nestor Martinez MD - 02/12/2013 11:46 [place] [address] Patient Name: JADYN SCHMITZ Provider: Unit #: [id number] [id number] 1965 DATE: 02/12/2013 CHIEF COMPLAINT: This is a 48-year-old woman who presents complaining of shortness of michaela th and cough since around 3 p.m. HISTORY OF PRESENT ILLNESS: She took 40 mg of prednisone just prior to arrival, about half an hour prior to arrival. She does have a history of COPD. She had called the on-call pulm onologist, who covers for her anodize machine operator, and they prescribed her prednisone over the ph one today. She has done 3 breathing treatments today and says it seems like she is still ledezma ving quite a difficulty breathing. PAST MEDICAL HISTORY: She has also a history of hysterectomy, knee surgery, hernia, osteoa rthritis, and fibromyalgia. ALLERGIES INCLUDE 1. ERYTHROMYCIN. 2. NSAIDS. 3. TETRACYCLINE. 4. MEPERIDINE. HOME MEDICATIONS 1. Albuterol. 2. Acetaminophen. 3. Cholecalciferol. 4. Cymbalta. 5. Advair. 6. Neurontin. 7. Duoneb. 8. Levothroid. 9. Multivitamin. 10. Prednisone. 11. Tramadol. 12. Geodon. 13. Of note, the patient also uses CPAP at night for sleep apnea. REVIEW OF SYSTEMS: A complete review of systems is negative except as detailed in the HPI above. PHYSICAL EXAMINATION VITAL SIGNS: Blood pressure is 158/119, heart rate 133, respirations 22, afebrile, 93% on room air. GENERAL: The patient denies any pain. She has diffuse wheezes both lungs. No distress. HEENT: Pupils equal and reactive to light and accommodation. Extraocular movements intact. Oral mucosa moist. NECK: Supple, nontender. CARDIAC: Normal S1, S2. LUNGS: Diffuse wheezes bilaterally. ABDOMEN: Soft, nontender, nondistended. Normal bowel sounds. NEUROLOGIC: Cranial nerves 2 through 12 intact. Normal sensation, motor, and strength in a ll four extremities. Alert and oriented x3. SKIN: No rashes or lesions. ASSESSMENT/PLAN A 48-YEAR-OLD DIAGNOSED WITH CHRONIC OBSTRUCTIVE PULMONARY DISEASE EXACERBATION. We gave her a DuoNeb initially, it was followed by 5 mg albuterol neb. She was feeling, by her words, 100% better. Her lung sounds were clear. Her saturations were 96-97% when she w as awake, around 90-91% she was sleeping. She will be discharged to home. She will continue the prednisone course prescribed by her anodize machine operator, and use her inhaled medication every 4 hours while awake. Return if worsenin g. DICTATED BY: Nestor Martinez M.D. Emergency Medicine JOB #: [id number] EXT JOB #:[id number] <<Signature on File>> Nestor Martinez MD1 04/17/12 1505 <Electronically signed by Nestor Martinez MD> documented in this encounter Plan of Treatment [...] | | | | | | [place] [address] | | | | | | [phone] | | | | | | | [...]
--- OUTSIDE RECORDS SUMMARY | ~2019-09-27 | XMS | Encounter Summary ---
Demographics + + + | Address | [address] | | | [place] [address] | + + + | Home Phone [...] Team Providers + +------+ + | Care Radio Producer Name | Role | Phone | [...] | RN | | | | | [place], | | | | | | [place] [address] | | | | | | [phone] | | | +--------+ + + + [...] | | | | | | [place] [address] | | | | | | [phone] | | | | | | | [...]
--- OUTSIDE RECORDS SUMMARY | ~2019-09-27 | XMS | Encounter Summary ---
Demographics + + + | Address | [address] | | | [place] [address] | + + + | Home Phone [...] Team Providers + +------+ + | Care Or Nurse Manager Name | Role | Phone | [...] | | | | | | | [place] | | | | | | | [place], | | | | | | | [place] [address] | | | | | | | Phone: | | | | | | | [phone] | | | | | | | Fax: | | | | | | | [phone] | +--------+--------+ + + + + Encounter Details +--------+---------+ + + + | Date | Type | Department | Care Team | Description | +--------+---------+ + + + | 05/13/ | Office | [facility] | Brian Miranda | Sprain of chest wall | | 2014 | Visit | MED CTR THERAPY PT | MD Oz[address] Need | (Primary Dx); | | | | OP [address] | updated address | Fibromyalgia | | | | [place] | [place], | | | | | [address] | PT | | | | | [phone] | | | +--------+---------+ + + + [...] 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 OP PT Goals OP PT Goals: [...] of assessment secondary to pain. Treatment Plan/Interventions: 38313 PT Evaluation;72895 Therapeutic Exercise;21462 Therapeutic Activity;37022 Ultrasound; 80061 Electrical Stimulation - Attended;Cold Pack;Hot Pack Requested # of Visits: 12 3x/wk for 4 weeks Certification From: 05/13/13 Certification To: 06/12/13 Kevin Weber, PT Patient Name: Rosario Malik/: 1965/ Juanjose Mariothy Gabino, PT - 05/13/2013 11:42 AM PDT . 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. She noted immediate pain in her left upper chest, that cu rrently radiates across the entire chest when she tries to perform any lifting, or pushing a nd pulling tasks. 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. 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 Rehabilitation potential: Patient demonstrates [...] From: 05/13/13 Certification To: 06/12/13 Treatment Plan/Interventions 15872 PT Evaluation;28736 Therapeutic Exercise;36722 Therapeutic Activity;10964 Ultrasound; 22806 Electrical Stimulation - Attended;Cold Pack;Hot Pack Patient and/or family has indicated understanding of treatment needs and actively participa kelley in the creation of this plan for care. Electronically signed by: Kevin Weber, SUDHEER, 05/13/2013 11:59 Patient Name: Rosario Malik/: 1965/ [...] | | | | | | [place] | | | | | | [address] | | | | | | | | +--------+---------+ + + + | 11/24/ | Office | Cardiology | [place], | | | 2019 | Visit | | [address] | | | | | | [place] | | | | | | [place] [address] | | | | | | [phone] | | | | | | | | +--------+---------+ + + + | 03/01/ | Office | Pulmonology | Mukul Clark MD | | | 2020 | Visit | | [address] | | | | | | [place] | | | | | | [id number] | | | | | | | | +--------+---------+ + + + documented as of this encounter Visit Diagnoses + + | Diagnosis | + + | Sprain of chest wall - Primary Other specified sites of sprains and strains | + + | Fibromyalgia Mylagia and myositis, unspecified | + + documented in this encounter"
--- OUTSIDE RECORDS SUMMARY | ~2019-09-27 | XMS | Encounter Summary ---
Demographics + + + | Address | [address] | | | [place] [address] | + + + | Home Phone [...] Team Providers + +------+ + | Care Turret Lathe Tender Name | Role | Phone | [...] | Concussion | Aaron Kim MD | Watch Leader [address] | | | Required | | with brief | [address] | [place] | | | | | loss of | [address] | [place], [place] | | | | | consciousnes | [place], | [address] | | | | | s Word | [place] [address] | Phone: | | | | | finding | Phone: | [phone] | | | | | difficulty | [phone] | Fax: | | | | | [phone] | Fax: | [phone] | | | | | (ICD-10-CM) | [phone] | | | | | | - [...] | +--------+ + + + + | 05/16/ | Hospital | [facility] | Aaron Rodriguez, | Concussion with | | 2017 | Encounter | MED CTR SPEECH | MD [address] | brief (less than one | | | | THERAPY [address] | [place] | hour) loss of | | | | [place], | [address] | consciousness | | | | [place] [address] | | (Primary Dx); | | | | [phone] | Kathi Soto, | Impaired memory; | [...] | | | | | [facility]. | | | | | | [...] | | | | | | ([facility]) | | | | | | + + + +---------+ + + | | Take 1 capsule by | | 0 | 10/13/19 | | | [id number] | mouth as needed. | | | 16 | 7 | | -Cod [id number] MG | | | | | | [...] | | | | | | ([facility]) | | | | | | [...] Progress Notes Kathi Soto, Speech Pathologist - 05/16/2016 10:30 AM PDT [facility] [address] [place] [address] Speech Therapy Initial Assessment Date: 05/16/2016 Patient Information Patient Name: Rosario Malik Date of : 1965 Age: 51 y.o. History No problems updated. Mechanism of injury: Trauma- Concussion with brief loss of consciousness on 03/15/16. Previous level of function and limitations: Problems with memory prior to concussion [place] in December of 2015, forgetting names, forgetting appointments,difficulty recalling words , and during conversation difficulty staying on track. 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 work Social History Social History Marital Status: Single Spouse Name: N/A Number of Children: 1 Years of Education: 13 Occupational History [employer] Social History Main Topics Smoking status: [...] R47.89 Word finding difficulty Date of Onset: 03/15/16 Referring Provider: Aaron Rodriguez MD No history [...] duct (pouch) (HCC) 10/28/2012 Overview: Managed by [facility] along with hypothyroidism Osteoarthritis Tachycardia Asthma Emphysema Migraine Sleep apnea uses BiPAP Oxygen dependent uses 2.5 liters most of the time Past Surgical History Procedure Laterality Date Hammer toe surgery right sided Hiatal hernia repair Hiatal hernia Kirk and bso Ovarian cysts, not cancer Colonoscopy 03/2010 Colonoscopy 1995 [facility] Knee surgery right Wrist surgery right Hysterectomy Other surgical history 02/28/2014 [facility] with Radial approach; Laterality: Left; Surgeon: Jared Mcdonough MD; Location: [facility] Tonsillectomy Age 6 Turbt N/A 11/22/2015 Procedure: Cystoscopy, Hydrodistention & Bladder Biopsy; Surgeon: Yinka Melendez; Location: [facility] MAIN OR Hernia repair 11/29/2015 [facility] Family History Problem Relation Age of [...] GI distress Meperidine Panic attacks Prior Treatment: Outpatient PT Rehab Precautions Office Visit from 05/01/2016 in [facility] CTR THERAPY PT OP Rehab Precautions Precautions None Learning Style Patient's Optimum Learning Style: observation, performance of task Abuse Assessment Do you feel safe in your current relationship or home?: Yes Action taken by clinician: No concerns Pain Assessment: Pain Scale Used: NUMERIC Pain Rating Pre Assessment: 0 Pain Rating During Assessment: 0 Subjective: History of Presenting Problem: Rosario Malik is a 51 y.o. female who presents to therapy s/p concussion with brief loss of consiousness on 03/15/16. Rosario reports problems with memory prior to concussion starting in December of 2015 stat ing she was starting to forget names/ appointments, had difficulty recalling words, and duri ng conversation difficulty staying on track. After her concussion she states symptoms worsen ed and have caused increased withdrawal from engaging in conversations, trying to talk aroun d subjects to compensate, and overall increased frustration and irritation. She states she h as seen some improvements getting back to prior level of function with rest however is efrain nuing to have functional memory and word finding deficits. She also states she has extra co ncern re: memory deficits due to family hx of cognitive changes/forgetfullness. Functional Limitations: Worsening desire to participate in social interactions since concus gabriel, increased frustration with memory and word finding difficulties, avoiding situations/ increased fear anxiety requiring phone calls to insurance companies etc. Precaution/special problems: Multiple medical complexities Patient s Goals: Improve memory, concentration and word finding abilities Objective: Expressive/Receptive Language: Halting and pausing during conversation, several instances o f word finding difficulties, tangential, and poor recall abilities. Cognitive aspects of Language: Severe cognitive deficits in the areas of immediate memory, visuospatial skills, and delayed memory, mild impairments with language and attention. Standardized Tests: RBANS Date:05/16/16 Areas Index Score Notes Immediate Memory 53 >3 SD below mean, Extremely low Visuospatial/Constructional 53 >3 SD below mean, Extremely low Language 85 1 SD below mean, Low avg Attention 88 1 SD below mean, Low avg Delayed Memory 40 >3 SD below mean, Extremely low Total 319 >3 SD below mean, Extremely low Percentile 0.1%ile Assessment Rosario Strong presents to speech therapy with concerns re: changes in memory and word find ing abilities s/p concussion on 03/15/16. Objective exam reveals severe impairments with imme diate memory, delayed memory, and visuospatial/ constructional abilities and mild-moderate i mpairments in the areas of language and attention. Receptive and expressive language reveals ;frequent halting and pausing during conversation, several instances of word finding difficu lties, tangential (poor topic maintenance) and poor recall abilities. Cognitively, Rosario had severe difficulty recalling word lists for both immediate and delayed memory and was onl y able to recall 3-4/12 items from a story with immediate and delayed recall tasks. These im pairments and diagnosis are causing functional limitations with patient s inability to par ticipate in social interactions since concussion, are causing increased frustration with mem ory and word finding difficulties, contributing to increased avoidance of participating in s ituations/ increased fear anxiety requiring phone calls to insurance companies etc. Signs a nd symptoms are consistent with cognitive-communication impairments s/p concussion. Rehabilitation potential: Patient demonstrates good potential to achieve established goals to address the documented impairments by participating in skilled speech and language therap y services. Goals: Outcome Specific Scored Goals Patient Specific Functional Scale: PSFS 1, PSFS 2, PSFS 3 Patient Specific Functional Scale Goal 1: Pt will demonstrate carryover and use of word fin ding and memory strategies to support recall in 12 weeks. Patient Specific Functional Scale Goal 1 Status Comment: Pt is only using calendar at home, trying to put things in same places. Avoiding naming people/objects if having diffculty rec alling. Patient Specific Functional Scale Goal 2: Pt will demonstrate improved immediate memory and delayed memory as evidenced by improved scores with re-assessment of the RBANS in 12 weeks. Patient Specific Functional Scale Goal 2 Status Comment: >3 SD below the mean for immediate and delayed memory. CHEMICAL SPRAYER G-Codes Functional Assessment Tool Used: NOMS Score: 2, Forgetting names of family members, severe memory impairment. Functional Limitations: Memory Memory Current Status (G9168): At least 80 percent but less than 100 percent impaired, limi kelley or restricted Memory Goal Status (G9169): At least 40 percent but less than 60 percent impaired, limited or restricted Plan Date of Onset: 03/15/2016 Start of Care Date: 05/16/2016 Requested # of Visits: 12 visits 1x/week for 12 Certification From: 05/16/2016 Certification To: 08/16/2016 Treatment Plan/Interventions 36818 - Cognitive [id number] - Cognitive [id number] - Speech/Hearing Treatment Patient and/or family has indicated understanding of treatment needs and actively participa kelley in the creation of this plan for care. Today's Treatment Start Time: 1030 Stop time: 1130 Duration: 60 minutes Timed Treatment Codes: minutes # of Speech Visits to Date: 1 Objective: See POC Next Visit: Memory strategies handout and cognitive stimulation for memory and word finding . Electronically signed by: Kathi Soto SPEECH PATHO, 05/20/2016 19:10 Patient Name: Rosario Rea [place]/: 1965/ domadyson ented in this encounter Plan of Treatment [...] [place] | | | | | | [address] | | | | | | | | +--------+---------+ + + + | 11/24/ | Office | Cardiology | [place], | | | 2019 | Visit | | SINDHU Erickson [address] | | | | | | [place] | | | | | | [place] [address] | | | | | | [phone] | | | | | | | | +--------+---------+ + + + | 03/01/ | Office | Pulmonology | Mukul Clark MD | | | 2020 | Visit | | [address] | | | | | | [place] | | | | | | [address] | | | | | | | [...]
--- OUTSIDE RECORDS SUMMARY | ~2019-09-27 | XMS | Encounter Summary ---
Demographics + + + | Address | [address] | | | [place] [address] | + + + | Home Phone [...] Team Providers + +------+ + | Care Screw Machine Tender Name | Role | Phone [...] | | | | | [address] | [address] [place], [place] | | | | | [place], [place] | [address] | | | | | [address] | | | | | | [phone] | | | +--------+ + + + [...] +----+---+ + + | | 0 | [place] | | | | 7 | 43-degrees [...] 11/22/15 1025 by | | eral | [id number] catheter system; | Kelsie Gandhi RN | [...] + + documented as of this encounter OR Notes Anesthesia Postprocedure Evaluation - Kevin Worthy MD - 11/22/2015 8:39 AM PDTForma tting of this note might be different from the original. ANESTHESIA POSTANESTHESIA EVALUATION Rosario Malik 50 y.o. female 1965 [id number] Procedure(s) Cystoscopy, Hydrodistention & Bladder Biopsy (N/A Bladder) Cooperates? Yes Mental Status Performs simple tasks. Respiratory Satisfactory - Airway patent (self maintained). Cardiovascular Satisfactory Blood pressure and heart rate acceptable Temperature Satisfactory Pain Satisfactory N/V Control Satisfactory Hydration Satisfactory No signs of dehydration Complications None apparent Filed Vitals: 11/22/15 0825 11/22/15 0830 11/22/15 0835 BP: 95/63 97/60 101/46 Pulse: 63 63 63 Temp: Resp: 9 9 10 SpO2: 95% 94% 94% Electronically signed by Kevin Worthy MD 11/22/2015 8:39 [facility] nesthesia Preproc edure Evaluation - Kevin Worthy MD - 11/22/2015 7:04 AM PDTFormatting of this note m ight be different from the original. ANESTHESIA PREANESTHESIA EVALUATION Rosario Malik 50 y.o. female 1965 [id number] Procedure(s): Cystoscopy, Hydrodistention & Bladder Biopsy (N/A Bladder) Medical history, anesthesia, medications, allergy, NPO status verified histories reviewed. Labs reviewed. Review of Systems / Med History Anesthesia History (-) PONV Cardiovascular (+) angina , Exercise tolerance <4 METS Pulmonary (+) asthma, COPD(+) sleep apnea: known Neurology (+) headaches Psychology (+) anxiety, depression, bipolar disorder, post-traumatic stress disorder Gastrointestinal/Hepatic Negative except where noted below. Endocrine Negative except where noted below. Adrenal insufficiency. (+) corticosteroid therapy, hypothyroidism, adrenal insufficiency Other Negative except where noted below. Lab Results Component Value Date WBC 12.3* 08/04/2015 HGB 14.1 11/13/2015 HCT 39.8 08/04/2015 MCV 84.3 08/04/2015 PLT 362 11/13/2015 Lab Results Component Value Date CREA 0.84 11/13/2015 BUN 12 11/13/2015 NA 144 11/13/2015 K 4.3 11/13/2015 CL 108 11/13/2015 CO2 25 11/13/2015 . Cancer Negative except where noted below. Physical Exam Airway MP III, TM >3 FB, Mouth opening <2 FB. Neck: full ROM, extends >30 degrees. Jaw protru gabriel normal. Dental Grossly normal except where noted below.; (+) Age appropriate dentition. CV Rhythm regular. Rate Normal. (-) murmur, carotid bruit, peripheral edema, JVD and weak pulses. Pulm Clear to auscultation bilaterally. (-) wheezing, rhonchi, decreased breath sounds, rales and stridor. Neuro Grossly normal. Anesthesia Plan ASA 3 Type: General. Induction: Intravenous. Potential problems: Difficult airway. Monitors: Standard ASA monitors. Consent statement:Anesthetic plan, alternatives, risks and benefits discussed with patient and family. Risks discussed included (but were not limited to): dental injury, pain, sore throat, infec tion, voice injury, muscle aches, nausea, respiratory events, . Consenting person understands and agrees to proceed. PARQ. Risks and benefits of general anesthetic discussed with patient and available family member s. They agree to proceed, answered all questions.. documented in this encounter Plan of Treatment +--------+---------+ + + + | Date | Type | Specialty | Care Team | Description | +--------+---------+ + + + | 09/27/ | Office | Sleep Medicine | Meghan Garcia MD | | | 2019 | Visit | | [address] | | | | | | [place] | | | | | | [id number] | | | | | | | | +--------+---------+ + + + | 11/24/ | Office | Cardiology | [place], | | | 2019 | Visit | | SINDHU Erickson [address] | | | | | | [place] | | | | | | [place] [address] | | | | | | [phone] | | | | | | | [...] | | | | | | Starting Fri11/22/15 at 0618, For | | | | [...] PRN, Starting Fri11/22/15 at | | 16 7:51 | | [...] PRN, Starting 11/22/15 at | | 16 7:45 | | | | | 0745, Anesthesia Intra-op | | AM PDT | | | | + +-------+ +-------+---+---+ +---+---+ | | | +---+---+ + +-------+ +------+---+---+ | midazolam (VERSED) 1 mg/mL | Given | 09/28/20 | 2 mg | | | | [...] 16 7:45 | | | | | Fri11/22/15 at 0745, Anesthesia | | AM PDT [...]
--- OUTSIDE RECORDS SUMMARY | ~2019-09-27 | XMS | Encounter Summary ---
Demographics + + + | Address | [address] | | | [place] [address] | + + + | Home Phone [...] Team Providers + +------+ + | Care Building Construction Foreman Name | Role | Phone | + +------+ + | Juan Cherry DO | PCP | | + +------+ + Reason for Visit + +--------+ + | Reason | Onset | Comments | | | Date | | + +--------+ + | Medication Refill | 08/17/ | | | | 2015 | | [...] [address] | | | | | [place], | [place], [place] | | | | | [place] [address] | [address] | | | | | [phone] | | | +--------+--------+ + + + [...] this encounter Miscellaneous Notes Telephone Encounter - Natalia Ren RN - 08/17/2014 12:17 PM PDTReceived faxed refill request for Prednisone 10 mg take 1 tablet PO every other day. The fax stated the patient i s completely out. Last refill: 07/19/14. Number given 15 & refills given 3 at last refill Last office visit: 06/09/14 Next office visit: 09/01/14 documented in this encounter Plan of Treatment +--------+---------+ + + + | Date | Type | Specialty | Care Team | Description | +--------+---------+ + + + | 09/27/ | Office | Sleep Medicine | Meghan Garcia MD | | | 2019 | Visit | | [address] | | | | | | [place] | | | | | | [address] | | | | | | | | +--------+---------+ + + + | 11/24/ | Office | Cardiology | [place], | | | 2019 | Visit | | SINDHU Erickson [address] | | | | | | [place], | | | | | | [place] [address] | | | | | | [phone] | | | | | | | [...]
--- OUTSIDE RECORDS SUMMARY | ~2019-09-27 | XMS | Encounter Summary ---
Demographics + + + | Address | [address] | | | [place] [address] | + + + | Home Phone [...] Team Providers + +------+ + | Care Marketing Research Coordinator Name | Role | Phone | [...] | | | | | pulmonary | [address] | [address] | | | | | disease, | [place], | [place] | | | | | unspecified | [place] [address] | [place], [place] | | | | | COPD type | Phone: | [phone] | | | | | (HCC) | [phone] | Phone: | | | | | Pulmonary | Fax: | [phone] | | | | | emphysema, | [phone] | Fax: | | | | | unspecified | | [phone] | | | | | emphysema | | | | | | | type ([facility]) | | | +--------+ + + + + + Encounter Details +--------+ + + + + | Date | Type | Department | Care Team | Description | +--------+ + + + + | 04/03/ | Orders Only | [facility] [place] | JamaledgardoJared, | Chronic obstructive | | 2017 | | CARDIOLOGY [address] | pulmonary disease, | | | | [place], | [place], | unspecified COPD | | | | [place] [address] | [place] [address] | type (HCC) (Primary | | | | [phone] | [phone] | Dx); Pulmonary | | | | [...] | | | | | | [place] [address] | | | | | | [phone] | | | | | | | | +--------+---------+ + + + | 03/01/ | Office | Pulmonology | Mukul Clark MD | | | 2020 | Visit | | [address] | | | | | | [place] | | | | | | [address] | | | | | | | [...]
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
--- OUTSIDE RECORDS SUMMARY | ~2019-09-27 | XMS | Encounter Summary ---
Demographics + + + | Address | [address] | | | [place] [address] | + + + | Home Phone [...] Team Providers + +------+ + | Care Ross Lift Operator Name | Role | Phone | + +------+ + | Juan Cherry DO | PCP | | + +------+ + Encounter Details +--------+ + + + + | Date | Type | Department | Care Team | Description | +--------+ + + + + | 09/20/ | Orders Only | [facility] | Provider, | | | 2018 | | SYSTEM GENERIC OP | [address] | | | | | CONVERSION [address] | [place]. | | | | | [address] [place], [place] | [place] [address] | | | | | [address] | | | | | | [phone] | | | +--------+ + + + [...] [place] | | | | | | [id number] | | | | | | | | +--------+---------+ + + + | 11/24/ | Office | Cardiology | [place], | | | 2019 | Visit | | SINDHU Erickson [address] | | | | | | [place] | | | | | | [place] [address] | | | | | | [phone] | | | | | | | | +--------+---------+ + + + | 03/01/ | Office | Pulmonology | Mukul Clark MD | | | 2020 | Visit | | [address] | | | | | | [place] | | | | | | [address] | | | | | | | | +--------+---------+ + + + documented as of this encounter Visit Diagnoses Not on filedocumented in this encounter"
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
--- OUTSIDE RECORDS SUMMARY | ~2019-09-27 | XMS | Encounter Summary ---
Demographics + + + | Address | [address] | | | [place] [address] | + + + | Home Phone [...] Providers + +------+ + | Care Retail Chain Store Area Supervisor Name | Role | Phone | [...] Alonso MD | | | | | [place], | | | | | | [place] [address] | | | | | | [phone] | | | +--------+ + + + [...] [place] | | | | | | [id number] | | | | | | | | +--------+---------+ + + + | 11/24/ | Office | Cardiology | [place], | | | 2019 | Visit | | SIND[address] Erickson | | | | | | [place] | | | | | | [place] [address] | | | | | | [phone] | | | | | | | [...]
--- OUTSIDE RECORDS SUMMARY | ~2019-09-27 | XMS | Encounter Summary ---
Demographics + + + | Address | [address] | | | [place] [address] | + + + | Home Phone [...] Team Providers + +------+ + | Care Industrial Aerial Installer Name | Role | Phone | [...] | Pulmonary | MD Mukul | [address] | | | | | nodule | [address] | [place], | | | | | Procedures | [address] | [place] [address] | | | | | CT Chest wo | [address] | Phone: | | | | | Contrast | [place] | [phone] | | | | | | [address] | Fax: | | | | | | Phone: | [phone] | | | | | | [phone] | | | | | | | Fax: | | | | | | | [phone] | | +--------+--------+ + + + + [...] | Pulmonary | MD Mukul | [address] | | | | | nodule | [address] | [place], | | | | | Procedures | [address] | [place] [address] | | | | | CT Chest wo | [address] | Phone: | | | | | Contrast | [place], [place] | [phone] | | | | | | [address] | Fax: | | | | | | Phone: | [phone] | | | | | | [phone] | | | | | | | Fax: | | | | | | | [phone] | | +--------+--------+ + + + + Encounter Details +--------+ + + + + | Date | Type | Department | Care Team | Description | +--------+ + + + + | 08/05/ | Hospital | [facility] | Mukul Clark MD | Pulmonary nodule | | 2018 | Encounter | [facility] [address] | [address] | | | | | [address] [place], | [place], [place] | | | | | [place] [address] | [address] | | | | | [phone] | | | +--------+ + + + [...] | Visit | | [address] | | | | | | [place] | | | | | | [address] | | | | | | | | +--------+---------+ + + + | 11/24/ | Office | Cardiology | [place], | | | 2019 | Visit | | SINDHU Erickson [address] | | | | | | [place], | | | | | | [place] [address] | | | | | | [phone] | | | | | | | | +--------+---------+ + + + | 03/01/ | Office | Pulmonology | Mukul Clark MD | | | 2020 | Visit | | [address] | | | | | | [place] | | | | | | [address] | | | | | | | [...] months.Dictated and Signed by: Lencho | | T MD Shira Electronically signed: 08/05/2017 2:59 PM | |cardiac [...] + + | Performing | Address | City/State[place] [facility] | Phone Number | | Organization | | | | + +---------+ + + | [facility] | | | | + +---------+ + + documented in this encounter Visit Diagnoses + + | Diagnosis | + + | Pulmonary nodule Solitary pulmonary nodule | + + documented in this encounter"
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
--- OUTSIDE RECORDS SUMMARY | ~2019-09-27 | XMS | Encounter Summary ---
Demographics + + + | Address | [address] | | | [place] [address] | + + + | Home Phone [...] Team Providers + +------+ + | Care Auxiliary Engineer Name | Role | Phone | + +------+ + | Juan Cherry DO | PCP | | + +------+ + Encounter Details +--------+ + + + + | Date | Type | Department | Care Team | Description | +--------+ + + + + | 11/06/ | Hospital | [facility] | Juan Cherry, | Pituitary mass (HCC) | | 2014 | Encounter | MED [facility] LABORATORY | DO [address] [facility] | | | | | [address] [place] | [place], [place] | | | | | [place], [place] | [address] | | | | | [address] | [phone] | | | | | [phone] | | | | | | | [...] | | | | | order to [facility]. | | | | | [...] | send order to [facility] | | | | | | | [facility]. | | | | | | | [...] Incentive | 1 each | 99 | 02/17/20 | | | Therapy Supplies | spirometer. [...] | | | | | | [place] [address] | | | | | | [phone] | | | | | | | | +--------+---------+ + + + | 03/01/ | Office | Pulmonology | Mukul Clark MD | | | 2020 | Visit | | [address] | | | | | | [place] | | | | | | [address] | | | | | | | [...] 24HR | e | 11:00 AM | (HCC) | procedure are in [...] [place] | | | | | | [address] | | | | + + + [...] | Cortisol, | 8.77Comment: Reference | ug/g BIODIESEL TECHNOLOGY MANAGER | REFERENCE | | | Urine, | [...] | | | | than 32 ug/g policy checker | | | | + + + [...] | | | this test in the [facility] | | | | | | Laboratory Test | | | | | | Directory([facility]).T | | | | | | est developed and | | | | | | characteristics | | | | | | determined by [facility] | | | | | | Laboratories.See | | | | | | Compliance Statement B: | | | | | | [facility]/CST[facility] | | | | | | Performed: [facility], [address] | | | | | | [address], [place] | | | | | | [id number] Performed: | | | | | | [facility], [address], | | | | | | [place] [address] | | | | + + + [...] [address] | [place] [address] | [phone] | + + + + + documented in this encounter Visit Diagnoses + + | Diagnosis | + + | Pituitary mass (HCC) Unspecified disorder of the pituitary gland and its hypothalamic | | control | + + documented in this encounter"
--- OUTSIDE RECORDS SUMMARY | ~2019-09-27 | XMS | Encounter Summary ---
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 Fifteen minutes were spent svlk-rp-onja, wit h the majority of time spent [...] [place] | | | | | | [id number] | | | | | | | | +--------+---------+ + + + | 11/24/ | Office | Cardiology | [place], | | | 2019 | Visit | | SINDHU Erickson [address] | | | | | | [place], | | | | | | [place] [address] | | | | | | [phone] | | | | | | | | +--------+---------+ + + + | 03/01/ | Office | Pulmonology | Mukul Clark MD | | | 2020 | Visit | | [address] | | | | | | [place] | | | | | | [id number] | | | | | | | | +--------+---------+ + + + documented as of this encounter Visit Diagnoses + + | Diagnosis | + + | Organic insomnia, unspecified - Primary | + + | GARRY on CPAP Obstructive sleep apnea (adult) (pediatric) | + + documented in this encounter"
--- OUTSIDE RECORDS SUMMARY | ~2019-09-27 | XMS | Encounter Summary ---
Demographics + + + | Address | [address] | | | [place] [address] | + + + | Home Phone [...] + +------+ + | Care Mental Health Nurse Practitioner Name | Role | Phone | [...] | Concussion | Aaron Kim MD | Jockey Room Custodian [address] | | | Required | | with brief | [address] | [place] | | | | | loss of | [address] | [place], [place] | | | | | consciousnes | [place], | [address] | | | | | s Word | [place] [address] | Phone: | | | | | finding | Phone: | [phone] | | | | | difficulty | [phone] | Fax: | | | | | [id number] | Fax: | [phone] | | | | | (ICD-10-CM) | [phone] | | | | | | - [...] + + | 09/17/ | Hospital | [facility] | Aaron Rodriguez, | Word finding | | 2017 | Encounter | MED CTR SPEECH | MD [address] [facility] | difficulty (Primary | | | | THERAPY [address] | [place] | Dx); Impaired | | | | [place], | [address] | memory; Concussion | | | | [place] [address] | | with brief (less | | | | [phone] | Kathi Soto, | than one hour) [...] | 0 | 10/13/19 | | | Gwvclwrhie-TJOE-Fbep | mouth as needed. | | | 16 | 7 | | -Cod 29-320-21-30 MG | | | | | | [...] Speech Pathologist - 09/19/2016 2:57 PM PDT [facility]APY [address] [facility] [address] Speech Therapy Discharge Note Date: 09/17/2016 Patient Information Patient Name: Rosario Malik Date of : 1965 Age: 51 y.o. History Encounter Diagnoses Code Name Primary? R47.89 Word finding difficulty Yes R41.3 Impaired memory S06.0X9A Concussion with brief (less than one hour) loss of consciousness Date of Onset: 03/15/2016 Referring Provider: Aaron Rodriguez MD Rehab Precautions Flowsheet Row Office Visit from 05/01/2016 in [facility] THERAPY PT OP Rehab Precautions Precautions None Rehab Learning Style Flowsheet Row [facility] DIRECTOR PATIENT FINANCIAL SERVICES OP EVAL from 05/16/2016 in [facility] SPEECH THERAPY O ffice Visit from 05/01/2016 in [facility] THERAPY PT OP Learning Style [...] with a counselor/p sychologist re: these concerns. ST did provide resources to [facility]. At this time Rosario stat es [...] Patient Caregiver's Ability to Manage Condition: 4 DIRECTOR PATIENT FINANCIAL SERVICES G-Codes Functional Assessment Tool Used: NOMS Score: [...] From: 08/16/2016 Certification To: 09/19/16 Treatment Plan/Interventions 18608 - Cognitive [id number] - Cognitive [id number] - Speech/Hearing Treatment Patient and/or family has [...] stimulation with HEP. Next Visit: Discharge to [facility]. Electronically signed by: Kathi Soto Speech Pathologist, 09/19/2016 15:49 Patient Name: Rosario Malik/: 1965/ docum ented in this encounter Miscellaneous Notes Addendum Note - Kathi Soto Speech Pathologist - 09/19/2016 3:50 PM PDTEncountradha haddad nded by: Kathi Soto Speech Pathologist on: 09/19/2016 15:50
Actions taken: Clemencia russell resolved, Follow-up modified documented in this encounter Plan of Treatment [...] | | | | | | [place] [address] | | | | | | [phone] | | | | | | | | +--------+---------+ + + + | 03/01/ | Office | Pulmonology | Mukul Clark MD | | | 2020 | Visit | | [address] | | | | | | [place] | | | | | | [address] | | | | | | | [...]
--- OUTSIDE RECORDS SUMMARY | ~2019-09-27 | XMS | Encounter Summary ---
Demographics + + + | Address | [address] | | | [place] [address] | + + + | Home Phone [...] Team Providers + +------+ + | Care Lip Of Shank Cutter Name | Role | Phone | + +------+ + PCP | Unavailable | + +------+ + Encounter Details +--------+ + + + + | Date | Type | Department | Care Team | Description | +--------+ + + + + | 07/31/ | Hospital | [facility] | Abigail Ozzie | | | 2010 | Encounter | MED CTR EMERGENCY | MD Ran [address] | | | | | S[place] [address] | [address] [facility] | | | | | [place], [place] | [place] [address] | | | | | [address] | [phone] | | | | | [phone] | | | +--------+ + + + [...] documented as of this encounter ED Notes Ozzie Hayes MD - 07/31/2010 2:22 AM PDTDATE: 07/31/2010 TIME OF EXAM: 023 CHIEF COMPLAINT: Low abdomen pain. HISTORY OF PRESENT ILLNESS: Rosario is a 45-year-old female who presents for evaluation o f lower ab dominal pain. Symptoms present for about a week. She had been seen in [facility]gent [facility] and here, diagnosed with a urinary tract infection. Said that despite antibiotics she has not been improving and her sym ptoms seem to be worsening. She has not been running a [email or web address] r. She has not been nauseated or vomiting. She has not had diarrhea. She notes some mild co nstipation. Denies pain with urination or blood in h er urine or pain in her flank. She has no skin rashes, lesions, or other symptoms or complaints. PAST MEDICAL HISTORY: Significant for asthma, diverticulitis, fibromyalgia, osteoarthritis . FAMILY HISTORY: Noncontributory. SOCIAL HISTORY: Denies alcohol or street drug use. She does smoke cigarettes. MEDICATIONS 1. Keflex. 2. Geodon. 3. Tramadol. 4. Potassium chloride. 5. Synthroid. 6. Neurontin. 7. Lexapro. ALLERGIES 1. ERYTHROMYCIN. 2. MEPERIDINE. 3. NSAIDs REVIEW OF SYSTEMS: Noted in the HPI, otherwise negative. PHYSICAL EXAMINATION VITAL SIGNS: Blood pressure 116/39, heart rate 81, respiratory rate 16, temperature 96, ox ygen satur ation 95% on room air. GENERAL: Nontoxic-appearing, no acute distress. HEENT: Normocephalic. Oropharynx moist. NECK: Supple. HEART: Regular. No murmurs. LUNGS: Clear, symmetric with good air movement. ABDOMEN: Soft. Mild left lower quadrant tenderness. No rebound, guarding, or masses. No CV A tenderne ss to percussion. SKIN: Intact without rashes or lesions. EXTREMITIES: Not swollen, tender, or edematous. NEUROLOGIC: Patient is alert, oriented, appropriate with normal strength and sensation thr oughout ex tremities. WORKUP IN THE EMERGENCY DEPARTMENT: White count normal at 7.1. Complete blood cell count a ll within normal limits. Urinalysis with trace leukocyte esterase, positive for nitrites. U rine culture pending . CT abdomen, pelvis, [facility] impression as follows: Sigmo id diverticulitis with secondar y inflammation of the urinary bladder, right upper quadrant colonic interposition compatible with Chi laiditi sign, is asymptomatic. DISCUSSION: Patient here with lower abdominal pain and findings of diverticulitis on CT. T here is no report of abscess or perforation. The patient is not febrile and does not have a n elevated white cou nt and is nontoxic. Will manage as an outpatient. She is given a dose of Levaquin, Flagyl, prescribed the same, Percocet for pain relief, Zofran for nausea relie f, and is to follow up with her doctor. S he is to return here immediately with fever, incr easing abdominal pain, vomiting, or other concerns. She is agreeable with this plan. DIAGNOSIS: DIVERTICULITIS. PLAN: As above. DICTATED BY: Ozzie Hayes MD Emergency Medicine JOB #: [id number] EXT JOB #:[id number] <Electronicall y Signed by Ozzie Hayes MD> 07/31/10 3998 documented in this encounter Plan of Treatment [...] [place] | | | | | | [address] | | | | | | | | +--------+---------+ + + + | 11/24/ | Office | Cardiology | [place], | | | 2019 | Visit | | SINDHU Erickson [address] | | | | | | [address] [place], | | | | | | [place] [address] | | | | | | [phone] | | | | | | | | +--------+---------+ + + + | 03/01/ | Office | Pulmonology | Mukul Clark MD | | | 2020 | Visit | | [address] | | | | | | [place] | | | | | | [address] | | | | | | | [...] + + + + | Color, | ORANGEComment: HIGHLY | | [facility] | | | Urine | COLORED URINES MAY CAUSE | | [facility] | | | | FALSE POSITIVE CHEMICAL | | MEDICAL | | | | RESULTS. | | CENTER - | | | | | | LABORATORY | | + + + + + + | Clarity, | CLEAR | | [facility] | | | Urine | [...] - 1.030 | [facility] | | | [place], | | | [facility] | | [...] White Blood | 0-2 | 0 - 1 /hpf | [facility] | | | Cells, | | | [facility] | | | Urine | | | MEDICAL | | | | | | CENTER - | | | | | | LABORATORY | | + + + + + + | Red Blood | NONE | 0 - 4 /hpf | [facility] | | | Cells, | | | [facility] | | | Urine | | | MEDICAL | | | | | | CENTER - | | | | | | LABORATORY | | + + + + + + | Squamous | FEW | FEW /hps | [facility] | | | Epithelial | | | [facility] | | | Cells, | | | MEDICAL | | | Urine | | | CENTER - | | | | | | LABORATORY | | + + + + + + | Bacteria, | NONE | NONE /hpf | [facility] | | | Urine | [...] + | [facility] | [address] | [place] | [phone] | | [facility] | | [address] | | | - LABORATORY | | | | + + + + + | [facility] | [address] | [place] | | | [facility] | | [address] [place] [address] | | | - LABORATORY | | [...] | | POTASSIUM OFTEN | | [facility] | | | | ASSOCIATES WITH LOW [...] | 9.0 | 6.0 - 17.0 | JOIEE | | | | | [...] [address] | [place] | [phone] | | [facility] | | [address] | | | - LABORATORY | | | | + + + + + | [facility] | [address] | [place], [place] | | | [facility] | | [address], [facility] | | | - LABORATORY | | [...] + | [facility] | [address] | [place] | [phone] | | [facility] | | [address] | | | - LABORATORY | | | | + + + + + | [facility] | [address] | [place], [place] | | | [facility] | | [id number] [place] [address] | | | - LABORATORY | | | | + + + + + CBC with Differential (07/31/2010 4:11 AM PDT) + +-------+ + + + | Component | Value | Ref Range | Performed | Pathologist | | | | | At | Signature | + +-------+ + + + | White Blood | 7.1 | 4.0 - 11.0 K/uL | [facility] | | | Cells | | | [facility] | | | | | | MEDICAL | | | | | | CENTER - | | | | | | LABORATORY | | + +-------+ + + + | Red Blood | 4.30 | 3.70 - 5.20 | [facility] | | | Cells | | M/uL | [facility] | [...] | | Neutrophils | | | [facility] | | | | | | MEDICAL | | | | | | CENTER - | | | | | | LABORATORY | | + +-------+ + + + | Absolute | 2.8 | 0.6 - 3.2 K/uL | [facility] | | | Lymphocytes | | | [facility] | | | | | | MEDICAL | | | | | | CENTER - | | | | | | LABORATORY | | + +-------+ + + + | Absolute | 0.6 | 0.0 - 1.0 K/uL | [facility] | | | Monocytes | | | [facility] | | | | | | MEDICAL | | | | | | CENTER - | | | | | | LABORATORY | | + +-------+ + + + | Absolute | 0.1 | 0.0 - 0.4 K/uL | [facility] | | | Eosinophils | | | [facility] | | | | | | MEDICAL | | | | | | CENTER - | | | | | | LABORATORY | | + +-------+ + + + | Absolute | 0.0 | 0.0 - 0.1 K/uL | [facility] | | | Basophils | | | [facility] | | | [...] + | [facility] | [address] | [place], [place] | [phone] | | [facility] | | [address] | | | - LABORATORY | | | | + + + + + | [facility] | [address] | [place], [place] | | | [facility] | | [address], [facility] | | | - LABORATORY | | | | + + + + + CT Abdomen Pelvis w Contrast (07/31/2010 2:22 AM PDT) + + | Specimen | + + | | + + + + + | Narrative | Performed At | + + + | [facility] | [facility] | | [address] [facility] | [facility] | | CT ABDOMEN AND PELVIS WITH [...] Transcribed Date/Time: 07/31/2010 | | | 10:29 Waybill Clerk: <Electronically Signed by Lencho Reynolds | | | MD Shira> 07/31/10 1718 | | + + + + + | Procedure Note | + + | Reed, Rad Conversion - 04/02/2013 3:05 PM [facility] | | Diagnostic Imaging Department [address] [facility] | | CT ABDOMEN AND PELVIS WITH [...] Byrnes on 07/31/2010 at 5:59 a.m. [facility] [place] e. | | | |Dictated Date/Time: 07/31/2010 08:28 | |Transcribed Date/Time: 07/31/2010 10:29 | |Waybill Clerk: | |<Electronically Signed by Lencho Silva MD> 07/31/108 | + + + +---------+ + + [...]
--- OUTSIDE RECORDS SUMMARY | ~2019-09-27 | XMS | Encounter Summary ---
Demographics + + + | Address | [address] | | | [place] [address] | + + + | Home Phone [...] Providers + +------+ + | Care Health Physicist Name | Role | Phone | + +------+ + PCP | Unavailable | + +------+ + Encounter Details +--------+ + + + + | Date | Type | Department | Care Team | Description | +--------+ + + + + | 08/09/ | Hospital | [facility] | [place], | | | 2009 | Encounter | MED CTR EMERGENCY | Ozzy Kim MD [address] | | | | | [place] [address] | [address] | | | | | [place], [place] | [place] [address] | | | | | [address] | [phone] | | | | | [phone] | | | +--------+ + + + [...] [place] | | | | | | [address] | | | | | | | | +--------+---------+ + + + | 11/24/ | Office | Cardiology | [place], | | | 2020 | Visit | | SINDHU Erickson [address] | | | | | | [place] | | | | | | [place] [address] | | | | | | [phone] | | | | | | | | +--------+---------+ + + + | 03/01/ | Office | Pulmonology | Mukul Clark MD | | | 2020 | Visit | | [address] | | | | | | [place] | | | | | | [address] | | | | | | | | +--------+---------+ + + + documented as of this encounter Visit Diagnoses Not on filedocumented in this encounter"
--- OUTSIDE RECORDS SUMMARY | ~2019-09-27 | XMS | Encounter Summary ---
Demographics + + + | Address | [address] | | | [place] [address] | + + + | Home Phone [...] Team Providers + +------+ + | Care Stave Inspector Name | Role | Phone | [...] | Concussion | Aaron Kim MD | Lifestyle Director [address] | | | Required | | with brief | [address] | [place] | | | | | loss of | [address] | [place], [place] | | | | | consciousnes | [place], | [address] | | | | | s Word | [place] [address] | Phone: | | | | | finding | Phone: | [phone] | | | | | difficulty | [phone] | Fax: | | | | | [id number] | Fax: | [phone] | | | | | (ICD-10-CM) | [phone] | | | | | | - [...] + + | 09/17/ | Hospital | [facility] | Aaron Rodriguez, | Word finding | | 2017 | Encounter | MED CTR SPEECH | MD [address] [facility] | difficulty (Primary | | | | THERAPY [address] | [place] | Dx); Impaired | | | | [place], | [address] | memory; Concussion | | | | [place] [address] | | with brief (less | | | | [phone] | Kathi Soto, | than one hour) [...] | | | | | order to [facility]. | | | | | [...] | | | | | | [facility]. | | | | | | [...] | 0 | 10/13/19 | | | Wdcybgufer-BYXC-Azqk | mouth as needed. | | | 16 | 7 | | -Cod [id number] MG | | | | | | [...] Speech Pathologist - 09/19/2016 2:[address] [facility] THERAPY [address] [facility] [address] Speech Therapy Discharge Note Date: 09/17/2016 Patient Information Patient Name: Rosario Malik Date of : 1965 Age: 51 y.o. History Encounter Diagnoses Code Name Primary? R47.89 Word finding difficulty Yes R41.3 Impaired memory S06.0X9A Concussion with brief (less than one hour) loss of consciousness Date of Onset: 03/15/2016 Referring Provider: Aaron Rodriguez MD Rehab Precautions Flowsheet Row Office Visit from 05/01/[address] [facility] THERAPY PT OP Rehab Precautions Precautions None Rehab Learning Style Flowsheet Row [facility]SM TELEVISION CABINET FINISHER OP EVAL from 05/16/[address] [facility] SPEECH THERAPY O ffice Visit from 05/01/[address] [facility] THERAPY PT OP Learning Style Patient's Optimum Learning Style observation, performance of task listening, reading, obs ervation, performance of task Subjective Rosairo Malik has completed 88 therapy visits for [...] these concerns. ST did provide resources to [facility]. At this time Rosario stat es [...] Patient Caregiver's Ability to Manage Condition: 4 TELEVISION CABINET FINISHER G-Codes Functional Assessment Tool Used: NOMS Score: 5 - The individual consistently requires minimal cues to recall or use external dominique ry aids for complex and novel information. The individual consistently requires minimal cue s to plan and follow through on complex future events (e.g. menu planning and meal preparati on, planning a green party, etc.). Functional Limitations: Memory Memory Current Status [...] From: 08/16/2016 Certification To: 09/19/16 Treatment Plan/Interventions 53562 - Cognitive [id number] - Cognitive [id number] - Speech/Hearing Treatment Patient and/or family has [...] stimulation with HEP. Next Visit: Discharge to [facility]. Electronically signed by: Kathi Soto Speech [...] | | | | | | [place] [address] | | | | | | [phone] | | | | | | | | +--------+---------+ + + + | 03/01/ | Office | Pulmonology | Mukul Clark MD | | | 2020 | Visit | | [address] | | | | | | [place] | | | | | | [address] | | | | | | | [...]
--- OUTSIDE RECORDS SUMMARY | ~2019-09-27 | XMS | Encounter Summary ---
Demographics + + + | Address | [address] | | | [place] [address] | + + + | Home Phone [...] Team Providers + +------+ + | Care Bit Gatherer Name | Role | Phone | + [...] | RN | | | | | [place], | | | | | | [place] [address] | | | | | | [phone] | | | +--------+ + + + [...] [place] | | | | | | [place] [address] | | | | | | [phone] | | | | | | | | +--------+---------+ + + + | 03/01/ | Office | Pulmonology | Mukul Clark MD | | | 2020 | Visit | | [address] | | | | | | [place] | | | | | | [address] | | | | | | | | +--------+---------+ + + + documented as of this encounter Visit Diagnoses Not on filedocumented in this encounter"
--- OUTSIDE RECORDS SUMMARY | ~2019-09-27 | XMS | Encounter Summary ---
Demographics + + + | Address | [address] | | | [place] [address] | + + + | Home Phone [...] Providers + +------+ + | Care Business Consultant Name | Role | Phone | + +------+ + | Juan Cherry DO | PCP | | + +------+ + Reason for Visit + + + | Reason | Comments | + + + | Dysuria | Rm 1 | + + + | Diarrhea | | + + + Encounter Details +--------+---------+ + + + | Date | Type | Department | Care Team | Description | +--------+---------+ + + + | 02/19/ | Office | [facility] | Elda Miranda | Diarrhea (Primary | | 2011 | Visit | [facility] [address] | MD [address] | Dx); Dysuria | | | | [facility] | [address] [facility] | | | | | [place] | [place] [address] | | | | | [address] | [phone] | | | | | [phone] | | | +--------+---------+ + + + [...] + | Blood Pressure | 90/60 | 02/20/2012 8:15 AM | | | | | PST | | + + + + + | Pulse | 82 | 02/20/2012 8:15 AM | | | | | PST | | + + + + + | Temperature | 37.3 C (99.2 F) | 02/20/2012 8:15 AM | | | | | PST | | + + + + + | Respiratory Rate | 18 | 02/20/2012 8:15 AM | | | | | PST | | + + + + + | Oxygen Saturation | 97% | 02/20/2012 8:15 AM | | | | | PST | | + + + + + | Inhaled Oxygen | - | - | | | Concentration | | | | + + + + + | Weight | 58.5 kg (129 lb) | 02/20/2012 8:15 AM | | | | | PST | | + + + + + | Height | - | - | | + + + + + | Body Mass Index | 23.2 | 02/13/2012 9:49 AM | | | | | PST | | + + + + + documented in this encounter Patient Instructions Patient Instructions Elda Miranda MD - 02/20/2012 8:57 AM PSTLikely viral etiology. Recommend increased fluids, bland diet, slowly advance as tolerated. Followup in 3-4 days if no better, return sooner if symptoms worsen. Note for work provided. A M PST documented in this encounter Progress Notes Elda Miranda MD - 02/20/2012 9:03 AM PST Subjective: Patient ID: Rosario Malik is a 47 y.o. female. HPI Patient is a 47-year-old female who presents to clinic today complaining of diarrhea starte d at midnight this morning and stopped at 6 AM. She had 4 watery diarrheal stools without b lood or melena. She is also had some low abdominal cramping which occurs E4 and after havin g a BM in voiding. She's also had some nausea but no vomiting. There've been no fevers or chills. No burning or pain with urinating, no urinary frequency. Her appetite is slightly decreased. She has had no recent possible bad food, no recent travel or antibiotics. Past medical history, medications, allergies reviewed. Review of Systems As per [facility] Objective: Physical Exam Vital signs as noted, nursing notes reviewed. Tybsjng-fbfc-wumujuxfd well-nourished female in no apparent distress, pleasant and cooperat wanda. Oropharynx-mucous membranes moist. Cardiovascular-regular rate rhythm without murmur rub gallop. Lungs-clear to auscultation bilaterally. Abdomen-normal bowel sounds, soft, nontender, no masses, no hepatosplenomegaly. No CVA ten derness bilaterally. Skin-pink, warm, no rashes. Assessment: 1. Diarrhea 2. Dysuria POCT URINALYSIS DIPSTICK NON-AUTOMATED Plan: Patient Instructions Likely viral etiology. Recommend increased fluids, bland diet, slowly advance as tolerated. Followup in 3-4 days if no better, return sooner if symptoms worsen. Note for work provided. documented in this encounter Plan of Treatment [...] | | | | | | [place] [address] | | | | | | [phone] | | | | | | | | +--------+---------+ + + + | 03/01/ | Office | Pulmonology | Mukul Clark MD | | | 2020 | Visit | | [address] | | | | | | [facility] [place] | | | | | | [address] | | | | | | | | +--------+---------+ + + + documented as of this encounter Procedures + +--------+ + + + | Procedure Name | Priori | Date/Time | Associated Diagnosis | Comments | | | ty | | | | + +--------+ + + + | POCT URINALYSIS | Routin | 02/20/2012 | Dysuria | Results for this | | DIPSTICK | e | 8:23 AM | | procedure are in the | | | | PST | | results section. | + +--------+ + + + documented in this encounter Results POCT URINALYSIS DIPSTICK NON-AUTOMATED (02/20/2012 8:23 AM PST) + + + + + + | Component | Value | Ref Range | Performed | Pathologist | | | | | At | Signature | + + + + + + | Color, UA, | Yellow | | | | | POC | | | | | + + + + + + | Clarity, | Clear | | | | | UA, POC | | | | | + + + + + + | Glucose, | Negative | | | | | UA, POC | | | | | + + + + + + | Bilirubin, | Negative | | | | | UA, POC | | | | | + + + + + + | Ketones, | Negative | Negative | | | | UA, POC | | | | | + + + + + + | Specific | 1.015 | | | | | [place], | | | | | | UA, POC | | | | | + + + + + + | Blood, UA, | Negative | | | | | POC | | | | | + + + + + + | pH, UA, POC | 5.5 | | | | + + + + + + | Protein, | Negative | | | | | UA, POC | | | | | + + + + + + | Urobilinoge | 0.2 mg/dL | | | | | n, UA, POC | | | | | + + + + + + | Nitrite, | Negative | | | | | UA, POC | | | | | + + + + + + | Leukocyte | Trace | | | | | Esterase, | | | | | | UA, POC | | | | | + + + + + + + + | Specimen | + + | Urine specimen | | (specimen) | + + documented in this encounter Visit Diagnoses + + | Diagnosis | + + | Diarrhea - Primary | + + | Dysuria | + + documented in this encounter"
--- OUTSIDE RECORDS SUMMARY | ~2019-09-27 | XMS | Encounter Summary ---
Demographics + + + | Address | [address] | | | [place] [address] | + + + | Home Phone [...] Providers + +------+ + | Care Telephone Station Installer Name | Role | Phone | [...] | (obstructive | [address] | [place] | | | | | sleep | [place] | [place], | | | | | apnea) | [place] | [place] [address] | | | | | J44.9 | [address] | Phone: | | | | | (ICD-10-CM) | Phone: | [phone] | | | | | - 496 | [phone] | Fax: | | | | | (ICD-9-CM) - | Fax: | [phone] | | | | | Chronic | [phone] | | | | | | obstructive | | | | | | | pulmonary | | | | | | | disease, | | | | | | | unspecified | | | | | | | COPD type | | | | | | | (HCC | | | | | | | Procedures | | | | | | | HI POLYSOM | | | | | | | 6/>YRS SLEEP | | | | | | | W/CPAP 4/> | | | | | | | ADDL ALESSIA | | | | | | | ATTND [place] | | | | | | | [...] | | | Medicine | consult, | [address] | [address] Phone: | | | | | [email or web address] | Phone: | [phone] | | | | | christopher carrera ss | [phone] | Fax: | | | | | yrs ago/AO | Fax: | [phone] | | | | | Procedures | [phone] | | | | | | NEW PATIENT | | | +--------+--------+ + + + + Encounter Details +--------+---------+ + + + | Date | Type | Department | Care Team | Description | +--------+---------+ + + + | 04/28/ | Office | [facility] | Meghan Garcia MD | GARRY (obstructive | | 2019 | Visit | SLEEP DISORDER [address] | [address] | sleep apnea) | | | | [address] [place] | [place] | (Primary Dx); | | | | [place] [address] | [address] | Chronic obstructive | | | | [phone] | | pulmonary disease, | | | [...] 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 She says since she stopped using her [...] the notes from Dr. Thalia addison in [place], [place]. It indicates that patient had CPAP [...] mask has been dreamwear nasal mask. ? [place] Sleepiness Scale: 20 out of 24 ( [...] Past Medical History: Diagnosis Date Adrenal insufficiency ([facility]) possible Anxiety Asthma Benign neoplasm of pituitary gland and craniopharyngeal duct (pouch) ([facility]) 10/28/2012 Overview: Managed by [facility] along with hypothyroidism Bilateral renal cysts Complex sleep apnea syndrome AHI 47.1, CPAP @ 8 cmH20, CPAP titaration study with preferred pressure of 9 cmH2O on 2013 COPD (chronic obstructive pulmonary disease) ([facility] [...] Procedure Laterality Date COLONOSCOPY 03/2010 COLONOSCOPY 1995 [facility] HAMMER TOE SURGERY right sided HERNIA REPAIR 11/29/2015 [facility] [place] HIATAL HERNIA REPAIR Hiatal hernia HYSTERECTOMY KNEE SURGERY right OTHER SURGICAL HISTORY 02/28/2014 [facility] with Radial approach; Laterality: Left; Surgeon: Jared Mcdonough MD; Location: [facility] CARDIO VASCULAR LAB MILES AND BSO Ovarian cysts, not cancer TONSILLECTOMY Age 6 TURBT N/A 11/22/2015 Procedure: Cystoscopy, Hydrodistention & Bladder Biopsy; Surgeon: Andriy Weber MD ; Location: [facility] MAIN OR WRIST SURGERY right ALLERGIES [...] Historical Provider, Yinka Witt Respiratory Therapy Supplies [facility] Please provide patient with necessary CPAP supplies (she did not specify, okay to send order as appropriate) Diagnosis Code(s)327.23 . Length of Need 99 months. Please send order to [facility]. 01/13/13 Yes Loreta London MD Respiratory Therapy Supplies [facility] Change CPAP back to 11-14 cm H2O. All necessary supplies. No oxygen bleed in. Diagnosis Code(s)327.23. Length of Need: Lifetime. Please send order to [facility]. This is not a [...] on notes from Dr. Amber Gilman, pul irrigation service technician, dated 07/09/17. Apparently, she has had CPAP [...] Insomnia Severity Index Insomnia Severity Index 19 [place] Sleepiness Scale 1. Sitting and reading 3 [...] | | | | | [place], [place] | | | | | | [address] | | | | | | | | +--------+---------+ + + + | 11/24/ | Office | Cardiology | [place], | | | 2019 | Visit | | SINDHU Erickson [address] | | | | | | [place], | | | | | | [place] [address] | | | | | | [phone] | | | | | | | | +--------+---------+ + + + | 03/01/ | Office | Pulmonology | Mukul Clark MD | | | 2020 | Visit | | [address] | | | | | | [place] | | | | | | [address] | | | | | | | | +--------+---------+ + + + + + +--------+ + + | Name | Type | Priori | Associated Diagnoses | Order Schedule | | | | ty | | | + + +--------+ + + | * [facility] - | Outpatient | [...]
--- OUTSIDE RECORDS SUMMARY | ~2019-09-27 | XMS | Encounter Summary ---
Demographics + + + | Address | [address] | | | [place] [address] | + + + | Home Phone [...] Team Providers + +------+ + | Care Assembler And Tester Electronics Name | Role | Phone | + +------+ + | Juan Cherry DO | PCP | | + +------+ + Encounter Details +--------+ + + + + | Date | Type | Department | Care Team | Description | +--------+ + + + + | 08/06/ | Hospital | [facility] | Conversion | Unknown cause of | | 2017 | Encounter | CONVERSION DEP [address] | Transaction, | injury, initial | | | | [address] | Provider Unknown | encounter | | | | [place] | [phone] | | | | | [address] | | | | | | [phone] | | | +--------+ + + + [...] | | | | | order to [facility]. | | | | | [...] | | | | | [facility]. | | | | | | | [...] [place] | | | | | | [address] | | | | | | | | +--------+---------+ + + + | 11/24/ | Office | Cardiology | [place], | | | 2019 | Visit | | SINDHU Erickson [address] | | | | | | [place] | | | | | | [place] [address] | | | | | | [phone] | | | | | | | | +--------+---------+ + + + | 03/01/ | Office | Pulmonology | Mukul Clark MD | | | 2020 | Visit | | [address] | | | | | | [place] | | | | | | [address] | | | | | | | | +--------+---------+ + + + documented as of this encounter Procedures + +--------+ + + + | Procedure Name | Priori | Date/Time | Associated Diagnosis | Comments | | | ty | | | | + +--------+ + + + | CT CHEST WO CONTRAST | Routin | 08/05/2017 | | Results for this | | | e | 5:22 PM | | procedure are in the | | | | PDT | | results section. | + +--------+ + + + documented in this encounter Results CT Chest wo Contrast (08/05/2017 5:22 PM PDT) + + | Specimen | + + | | + + + + + | Narrative | Performed At | + + + | This is a non-reportable procedure without a radiologist report and | | | is used for image storage only | | + + + + + | Procedure Note | + + | Roger Mcbride - 10/07/2018 6:05 AM PDT This is a non-reportable procedure | | without a radiologist report and isused for image storage only | + + documented in this encounter Visit Diagnoses + + | Diagnosis | + + | Unknown cause of injury, initial encounter | + + documented in this encounter"
--- OUTSIDE RECORDS SUMMARY | ~2019-09-27 | XMS | Encounter Summary ---
Demographics + + + | Address | [address] | | | [place] [address] | + + + | Home Phone [...] Providers + +------+ + | Care Cook Cashier Food Prep Name | Role | Phone | + +------+ + | Juan Cherry DO | PCP | | + +------+ + Reason for Visit +--------+--------+ + | Reason | Onset | Comments | | | Date | | +--------+--------+ + | Other | 12/20/ | Sleep study | | | 2013 | | +--------+--------+ + Encounter Details +--------+ + + + + | Date | Type | Department | Care Team | Description | +--------+ + + + + | 12/20/ | Telephone | [facility] | Kevin Sandoval, | Leora (Sleep study) | | 2013 | | PULMONARY [address] | MD [address] | | | | | [place], | [place] | | | | | [place] [address] | [address] | | | | | [phone] | | | +--------+ + + + [...] this encounter Miscellaneous Notes Telephone Encounter - Lizy Nieto RN - 12/20/2013 4:44 PM PDTSpoke with Rosario and relayed information from Dr. Sandoval. Patient still did not believe this is what Dr. Burgess on had told her. Rosario states she told Dr. Cherry each of her sleep related troubles and that he thoug ht a sleep study should be done. Rosario said she is going to drop off the order from Dr. Carline dash tomorrow. I called [facility] and requested the latest progress note from Dr. Cherry be faxed to Dr Chris Sandoval's office for his review. elephone Encounter - Kevin Sandoval MD - 12/20/2013 2:13 PM PDTCelia patel to ask Dr. Wya herself. I am not sure why he ordered a polysomnogram. At the time of our last clinic appointment I stated that she might need a polysomnogram but that her fa tigue was undergoing medical evaluation by her primary care provider and that I was awaiting that evaluation prior to ordering a sleep study. elephone Encounter - Lizy Nieto RN - 12/20/2013 1:35 PM PDTGretchen called to let Dr. Sandoval know she spoke with her PCP Dr. Cherry about mahendra alejo a sleep study performed. She said Dr. Cherry has written an order for this. Patient is confused why Dr. Sandoval did not order the sleep study. Please advise. Tomy benson in this encounter Plan of Treatment [...] | | | | | | [place] [address] | | | | | | [phone] | | | | | | | [...]
--- OUTSIDE RECORDS SUMMARY | ~2019-09-27 | XMS | Encounter Summary ---
Demographics + + + | Address | [address] | | | [place] [address] | + + + | Home Phone [...] Providers + +------+ + | Care Front Desk Attendant Name | Role | Phone | [...] Alonso MD | | | | | [place], | | | | | | [place] [address] | | | | | | [phone] | | | +--------+ + + + [...] [place] | | | | | | [id number] | | | | | | | | +--------+---------+ + + + | 11/24/ | Office | Cardiology | [place], | | | 2019 | Visit | | SINDHU Erickson | | | | | | [place] | | | | | | [place] [address] | | | | | | [phone] | | | | | | | [...]
--- OUTSIDE RECORDS SUMMARY | ~2019-09-27 | XMS | Encounter Summary ---
Demographics + + + | Address | [address] | | | [place] [address] | + + + | Home Phone [...] Team Providers + +------+ + | Care Small Products Ii Assembler Name | Role | Phone | + +------+ + | Juan Cherry DO | PCP | | + +------+ + Reason for Visit +--------+--------+ + | Reason | Onset | Comments | | | Date | | +--------+--------+ + | Other | 10/07/ | | | | 2014 | | +--------+--------+ + Encounter Details +--------+ + + + + | Date | Type | Department | Care Team | Description | +--------+ + + + + | 10/07/ | Telephone | [facility] | Kevin Sandoval, | Leora | | 2014 | | PULMONARY [address] | MD [address] | | | | | [place], | [place] | | | | | [place] [address] | [address] | | | | | [phone] | | | +--------+ + + + [...] encounter Miscellaneous Notes Telephone Encounter - Marilyn Osborne, RN - 10/07/2014 1:40 PM PDTYanetmeghna called loni white that 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 Appoint ment cancelled. docum ented in this encounter Plan of [...] [place] | | | | | | [id number] | | | | | | | | +--------+---------+ + + + | 11/24/ | Office | Cardiology | [place], | | | 2019 | Visit | | SINDHU Erickson [address] | | | | | | [place], | | | | | | [place] [address] | | | | | | [phone] | | | | | | | [...]
--- OUTSIDE RECORDS SUMMARY | ~2019-09-27 | XMS | Encounter Summary ---
Demographics + + + | Address | [address] | | | [place] [address] | + + + | Home Phone [...] Team Providers + +------+ + | Care Rippler Name | Role | Phone | + [...] | 08/13/ | Emergency | [facility] | Guru Cárdenas, | COPD with acute | | 2013 | | [facility] | [place] [address] | exacerbation (HCC) | | | | [place] [address] | [facility] [place] | (Primary Dx) | | | | [place], [place] | [place] [address] | | | | | [address] | [phone] | | | | | [phone] | | | +--------+ + + + [...] be sent through Care Everywhere.COPD FLARE ([facility])documented in this encounter Medications at Time of [...] | | | | | order to [facility]. | | | | | [...] documented as of this encounter ED Notes Kandace Ray CNA - 08/13/2013 8:49 PM PDTResp called for duoneb ariowGuru reynoso MD - 08/13/2013 8:46 P M PDT [facility] Rosario Malik Emergency Department Encounter Note [address] [place] [id number] PCP:Juan Cherry [phone] CHIEF COMPLAINT Chief Complaint Patient presents with Shortness of Breath HPI Rosario Malik is a 48 y.o. female who presents to the emergency department with shor tness of breath. Patient states at 6 PM she started to become very short of breath. She us ed 2 of her breathing treatments and tried some oxygen. The medication and oxygen did not h elp. She then came to the emergency department for further evaluation. She has an extensiv e history of lung disease and is followed by a destination coordinator. She is not currently on stero ids. No recent cough or cold symptoms. No fevers. She is providing her own history. She is accompanied by family members at this time. She is also a patient of Dr. Mcdonough. She is not a smoker at this time. No recent travel. PAST MEDICAL HISTORY Past Medical History Diagnosis [...] [facility]) 10/[facility]/2012 Overview: Managed by [facility] along with hypothyroidism Osteoarthritis Tachycardia SURGICAL HISTORY Past Surgical History Procedure Date Hammertoe repair right sided Hiatal hernia repair Hiatal hernia Kirk and bso Ovarian cysts, not cancer Colonoscopy 03/2010 Colonoscopy 1996 [facility] CURRENT MEDICATIONS Previous Medications ADVAIR DISKUS 500-50 MCG/DOSE DISKUS INHALER INHALE 1 PUFF BY MOUTH TWICE DAILY ALBUTEROL (PROAIR HFA) 90 MCG/PUFF INHALER Inhale 2 puffs into the lungs every 6 hours as needed for Wheezing or Shortness of Breath. COLLAGEN PO Take by mouth 3 times daily. DULOXETINE (CYMBALTA) 60 MG CAPSULE Take one by mouth daily GABAPENTIN (NEURONTIN) 800 MG TABLET Take 800 mg by mouth 3 times daily. KETOROLAC (TORADOL) 10 MG TABLET Take 10 mg by mouth every 6 hours as needed. LEVOTHYROXINE (SYNTHROID, LEVOTHROID) 75 MCG TABLET Take 75 mcg by mouth every morning (before breakfast). MULTIPLE VITAMINS-MINERALS (MULTIVITAMIN PO) Take by mouth Daily. OMEPRAZOLE (PRILOSEC) 20 MG CAPSULE Take 20 mg by mouth Daily as needed. ONDANSETRON (ZOFRAN ODT) 4 MG DISINTEGRATING TABLET Take 4 mg by mouth every 4 hours as needed. RESPIRATORY THERAPY SUPPLIES [facility] Change CPAP back to 11-14 cm H2O. All necessary suppl ies. No oxygen bleed in. Diagnosis Code(s)327.23. Length of Need: Lifetime. Please send orde r to [facility]. This is not a new order, just a change in settings. RESPIRATORY THERAPY SUPPLIES [facility] Please provide patient with necessary CPAP supplies ( she did not specify, okay to send order as appropriate) Diagnosis Code(s)327.23 . Length of Need 99 months. Please send order to [facility]. RESPIRATORY THERAPY SUPPLIES [facility] Incentive spirometer. Please provide instructions in use. [...] Meperidine Nsaids Hives Onion Extract Pork Allergy FAMILY HISTORY Family [...] 1 Years of Education: 13 Occupational History [employer]IC [employer] ANALY[employer] Social History Main Topics Smoking status: [...] No acute cardiopulmonary abnormality. REVIEW OF SYSTEMS All systems reviewed and found negative except what is in the HPI PHYSICAL EXAM VITAL SIGNS: BP 122/51 | Pulse 86 | Temp 36.3 C (97.3 F) | Resp 22 | Ht 1.575 m (5' 2. 01") | Wt 66.679 kg (147 lb) | BMI 26.88 kg/m2 | SpO2 93% | ? No Constitutional: Well developed, Well nourished, moderate acute distress, Non-toxic appeara nce. HENT: Normocephalic, Atraumatic, Bilateral external ears normal, Mucous membranes are mois t, Nasal mucosa is normal. Eyes: PERRL, EOMI, Conjunctiva normal, No discharge. Palpebral conjunctiva are pink. Neck: Normal range of motion, No tenderness, Supple, No stridor. Respiratory: Poor air exchange bilaterally, mild expiratory wheezing, moderate respiratory distress Cardiovascular: Normal heart rate, Normal rhythm GI: Soft, Non tenderness, No peritoneal signs, No masses Extremities: Warm and well perfused, no edema, no joint swelling or deformity. Good ROM. Back: No CVAT, No tenderness of the thoracic or lumbar spine. Skin: Warm, Dry, No erythema, No induration, No rash. Neurologic: Alert & oriented x 3, No focal motor or sensory deficits. Speech is clear. G ait is normal. RADIOLOGY Portable chest x-ray shows chronic lung disease without acute pathology ED COURSE & MEDICAL DECISION MAKING Pertinent Labs & Imaging studies reviewed. (See chart for details) The patient was seen and examined shortly after arriving in the emergency department. Hist ory and physical were obtained, vital signs were noted. The patient feels almost back to ba titusine after the multiple breathing treatments here. She states that when she's been at thi s level before she's been able to be treated at home with prednisone. She was given a dose of Solu-Medrol here in the ER. Outpatient treatment with instructions for returning immedia tely if her symptoms worsen again is indicated. FINAL IMPRESSION 1. COPD with acute exacerbation (HCC) PLAN Follow-up Information Follow up with Juan Cherry DO. Schedule an appointment as soon as possible for a vis it in 3 days. Contact information: [address] [facility] [id number] New Prescriptions PREDNISONE (DELTASONE) 10 MG TABLET Take 6 tablets by mouth Daily for 5 days. Guru Cárdenas MD 08/13/13 [id number] docume nted in this encounter Miscellaneous Notes Plan of Care - ONBASE SCAN WAMT - 08/16/2013 12:00 AM PDT D Triage Notes - Leilani Larios RN - 08/13/2013 8:41 P M PDTPatient states was sitting at home and began having SOB at approx 1800. Patient has ho me O2 3LNC when needed. Patient states she used the oxygen for approx one hour and that whe n she took it off that her SOB was worse and that is when she decided to come into the ER. Patient also wearing a holter monitor for rapid heart rate and has follow up with Dr. Daniel stovall. documente d in this encounter Plan of [...] | | | | | | [place] [address] | | | | | | [phone] | | | | | | | | +--------+---------+ + + + | 03/01/ | Office | Pulmonology | Mukul Clark MD | | | 2020 | Visit | | [address] | | | | | | [place] | | | | | | [address] | | | | | | | [...] + | MISCELLANEOUS LAB | | | [phone] | + +---------+ + + | MISCELANIOUS LAB | | | [phone] | + +---------+ + + ED INFORMATION EXCHANGE (08/13/2013 8:38 PM PDT) + + | Specimen | + + | | + + + + + | Narrative | Performed At | + + + | VISIT TRACKING (3 MO.) Visit Date Location | [facility] | | Type Diagnoses | | | -------- | | | ---- 08/13/2013 20:37 [facility] | | | [facility] Emergency COPD Exasperation; | | | 07/18/2013 12:06 [facility] | | | Emergency Arm Laceration; | | | | | | Open wound of upper arm, without mention of complication; | | | | | | cut on Lft arm; 07/14/2013 00:15 | | | [facility] Emergency Shortness of | | | Breath; | | | Chronic obstructive | | | asthma with (acute) exacerbation; 06/19/2013 21:06 [facility] | | | [facility] Emergency Obstructive chronic | | | bronchitis with (acute) exacerbation; | | | | | | Shortness of Breath; | | | diff | | | breathing; 06/19/2013 11:03 [facility] | | | Emergency COPD exasperation; 05/23/2013 19:52 | | | [facility] Emergency Obstructive | | | chronic bronchitis with (acute) exacerbation; | | | | | | Obstructive chronic bronchitis with (acute) | | | exacerbation; | | | sob; | | | | | | Shortness of Breath; VISIT COUNT (1 | | | YR.) Visits Medicaid [place] Dx Location ------ | | | --------- 12 0 | | | [facility] 12 0 | | | Total Note: Visits indicate total known visits. Medicaid | | | [place] Dx are the number of primary diagnoses on the [facility]'s non-emergent dx | | | list. | [...]
--- OUTSIDE RECORDS SUMMARY | ~2019-09-27 | XMS | Encounter Summary ---
Demographics + + + | Address | [address] | | | [place] [address] | + + + | Home Phone [...] Team Providers + +------+ + | Care Denier Control Operator Name | Role | Phone | + +------+ + | Juan Cherry DO | PCP | | + +------+ + Reason for Visit +--------+--------+ + | Reason | Onset | Comments | | | Date | | +--------+--------+ + | Other | 12/29/ | CPAP download results | | | 2012 | | +--------+--------+ + Encounter Details +--------+ + + + + | Date | Type | Department | Care Team | Description | +--------+ + + + + | 12/29/ | Telephone | [facility] [place] | Ana Laura Lopez, | Other (CPAP download | | 2012 | | PULMONARY [address] | RN | results ) | | | | [place], | | | | | | [place] [address] | | | | | | [phone] | | | +--------+ + + + [...] this encounter Miscellaneous Notes Telephone Encounter - Ana Laura Ernandze RN - 12/29/2012 1:33 PM PSTCalled patient per dora braden of Dr. London. Relayed message from CPAP download; apnea well controlled, minimal sno ring,needs to use CPAP more. Patient understands. She states she wears CPAP every night, s ometimes in her sleep she knocks mask off her face but then when realizes this places mask b ack on. documented in this encounter Plan of Treatment [...] | | | | | | [place] [address] | | | | | | [phone] | | | | | | | [...]
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
--- OUTSIDE RECORDS SUMMARY | ~2019-09-27 | XMS | Encounter Summary ---
Demographics + + + | Address | [address] | | | [place] [address] | + + + | Home Phone [...] Providers + +------+ + | Care Construction Craft Laborer Name | Role | Phone | [...] Description | +--------+---------+ + + + | 09/07/ | Office | [facility] [place] | Offenstein, | COPD exacerbation | | 2012 | Visit | PULMONARY [address] | Loreta Alonso MD | ([facility]) (Primary Dx); | | | | [place], | | Sleep apnea; | | | | [place] [address] | | Allergic rhinitis; | | | | [phone] | | Insomnia | +--------+---------+ + + [...] + + + | Blood Pressure | 118/64 | 09/07/2012 10:35 AM | | | | | PDT | | + + + + + | Pulse | 122 | 09/07/2012 10:35 AM | | | | | PDT | | + + + + + | Temperature | - | - | | + + + + + | Respiratory Rate | - | - | | + + + + + | Oxygen Saturation | 95% | 09/07/2012 10:35 AM | | | | | PDT | | + + + + + | Inhaled Oxygen | - | - | | | Concentration | | | | + + + + + | Weight | 62.1 kg (137 lb) | 09/07/2012 10:35 AM | | | | | PDT | | + + + + + | Height | 157.5 cm (5' 2") | 09/07/2012 10:35 AM | | | | | PDT | | + + + + + | Body Mass Index | 25.06 | 09/07/2012 10:35 AM | | | | | PDT | | + + + + + documented in this encounter Patient Instructions Patient Instructions Offenstein, Loreta B, MD - 09/07/2012 10:59 AM PDTUse Combivent 2 puf fs 4 times a day. Start cetirizine 10mg daily. Take prednisone taper. Try and work on regulating your sleep schedule. If you are still having dizziness, let Dr. Cherry know. [facility]: Ruben Tucker MD documented in this encounter Progress Notes Loreta London MD - 09/07/2012 10:42 AM PDTFormatting of this note might be differe nt from the original. Sleep Follow Up MD Yandel Rasheeda [facility] [address] [place] [place], [address] HPI Rosario Malik is a 47 y.o. female patient of Juan Cherry here today for follow up of obstructive sleep apnea. She notes that she has been wearing their CPAP. Their compliance has been good. They are n ot having issues with their CPAP machine such as the sensation of excessive pressure or a po brandon fitting mask. She felt like it was helping her until a couple of weeks ago, and then s he has been getting more sleepy. She is having a hard time staying awake. The last couple of weeks, she has felt dizzy, lightheaded and disoriented. She has not talk ed to her primary care provider. Reviewing her sleep data, she is using her CPAP for a good number of hours, but her sleep s chedule has been more erratic the last few weeks. Her AHI has been very well controlled, amor n to 2.4. She notes that she had more breathing problems last Friday, and took prednisone at 60mg las t week, after being seen in the emergency room. She notes that with coughing she would actua lly fall to the floor. She called in and then went to the emergency room. She was treated wi th a continuous nebulizer and then started on the prednisone. She did stop smoking a week and a half ago. She is still working, until Friday and then is moving next week. They are planning on her d ad driving to [place]. 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 150 mL 5 albuterol-ipratropium (COMBIVENT) 103-18 mcg/puff inhaler 2 puffs [...] Vitamins-Minerals (MULTIVITAMIN PO) Take by mouth Daily. predniSONE (DELTASONE) 10 mg tablet 4 tabs orally daily for 3 days then decrease by 1 t ab every 3 days. 30 tablet 0 Respiratory Therapy Supplies MISC Change CPAP [...] daily. Review of Systems Constitutional: Denies fever, chills. Has been gaining weight. Has been having sweats. Sleep: Using her CPAP. Has been having issues staying asleep. Has been napping on occasion . Nighttime sleep is erratic. Eyes: Denies vision change. Her eyes are burning. Wants to start allergy medicine. ENT: Denies earache, decreased hearing, nosebleeds, sore throat, and hoarseness. Occasiona l nasal congestion and stuffiness. Resp: See HPI. CV: Denies chest pain, palpitations, syncope, and peripheral edema. GI: Denies heartburn, vomiting, and abdominal pain. Some nausea. : Notes some delayed bladder emptying. Objective BP 118/64 | Pulse 122 | Ht 1.575 m (5' 2") | Wt 55.339 kg (122 lb) | BMI 22.31 kg/m2 | SpO2 95% General Appearance: Alert, cooperative, no distress, appears stated age, arrived to clinic today dirty and dishevled Head: Normocephalic, without obvious abnormality, atraumatic Eyes: PERRL, conjunctiva clear, no scleral icterus, EOM's intact Ears: Normal TM's, external auditory canals, normal acuity Nose: Nares normal, septum midline, mucosa normal Mouth: No oral lesions or exudate Neck: Supple, symmetrical, no adenopathy Lungs: No accessory muscle use, breath sounds are diminished bilaterally with diffuse exp iratory wheezing, no crackles or rhonchi Chest Wall: No deformity Heart: Mildly tachycardic, , no murmur, rub or gallop Abdomen: Soft, non-tender, non-distended Extremities: No cyanosis, clubbing, or edema Pulses: Radial pulses 2+ and symmetric Skin: Warm and dry Lymph nodes: Cervical and supraclavicular nodes normal Dates: 08/08/12-09/06/12 Baseline AHI: 47.1 (complex sleep apnea) Machine type: Cytonics S9 auto CPAP Home Health Company: [employer] CPAP Pressure: 11-14 cmH2O Median Titrated Pressure: 12.5 cmH2O 95%tile Pressure: 13.9 cmH2O Maximum Pressure: 13.9 cmH2O AHI: 2.4 events/hour Total number of days: 30 Number of days used: 28 Median daily usage: 4:59 hours Percent of days used for more than 4 hours: 70 % Median leak: 0.0 L/min Immunization History Administered Date(s) Administered INFLUENZA, >= 4YO W/PRESERVATIVE IM 12/12/2010 INFLUENZA, PRESERVATIVE FREE IM 12/13/2011 Pneumococcal (Adult) 02/24/2011 Tdap 01/22/2008 Assessment 1. COPD exacerbation - We will treat with another prednisone taper. I also asked her to inc rease her Combivent to four times a day scheduled. She is already on high dose Advair. We ma y have to consider a long acting anti cholinergic, though she has mild disease on previous P FTs. We will add allergy medication to see if this helps reduce reactivity and exacerbations . 2. Sleep apnea - Complex apnea. Despite the fact that she is hitting the high range of her CPAP pressure, her AHI is finally coming down in to acceptable range on standard CPAP (witho ut back up). We have been working on this for months, and with increased usage, her central apneas seem to be improving. I am not going to change her settings today, especially as I am not seeing her again. 3. Allergic rhinitis - We will add scheduled cetirizine. I am hoping this will improve the control of her lung disease. 4. Insomnia- Unsurprisingly, with her mental health issues, we have grappled with getting h er to follow a regular sleep schedule. She has felt that our advice is not that helpful. We did well for a while, but currently she is off track and is feeling worse (unsurprisingly). I reiterated sticking to a regular sleep schedule as being essential to quality sleep. Plan 1.Keep current CPAP settings. 2.Repeat prednisone taper. 3.Use Combivent four times daily scheduled. 4. Start cetirizine 10mg daily. 5.Insomnia instructions reiterated. I have printed them multiple times. I have discussed the download from their PAP machine in detail. This shows that their slee p apnea is well controlled, with an AHI of 2.4. It also shows that their leaks are well con trolled. Return to clinic not scheduled given move to [place], or sooner with concerns. CC: Juan Cherry Portions of this report were transcribed using voice recognition software. Every effort wa s made to ensure accuracy; however, inadvertent computerized multiple games dealer errors may be pre sent. documented in t his encounter Miscellaneous Notes Miscellaneous - TRINITY WATKINS - 09/07/2012 12:00 AM PDT documented in this encounter [...] [place] | | | | | | [address] | | | | | | | | +--------+---------+ + + + | 11/24/ | Office | Cardiology | [place], | | | 2019 | Visit | | SINDHU Erickson [address] | | | | | | [place], | | | | | | [place] [address] | | | | | | [phone] | | | | | | | | +--------+---------+ + + + | 03/01/ | Office | Pulmonology | Mukul Clark MD | | | 2020 | Visit | | [address] | | | | | | [place] | | | | | | [address] | | | | | | | | +--------+---------+ + + + documented as of this encounter Visit Diagnoses + + | Diagnosis | + + | COPD exacerbation (HCC) - Primary Obstructive chronic bronchitis with exacerbation | + + | Sleep apnea Unspecified sleep apnea | + + | Allergic rhinitis Allergic rhinitis, cause unspecified | + + | Insomnia Insomnia, unspecified | + + documented in this encounter
--- OUTSIDE RECORDS SUMMARY | ~2019-09-27 | XMS | Encounter Summary ---
Demographics + + + | Address | [address] | | | [place] [address] | + + + | Home Phone [...] Team Providers + +------+ + | Care Microstrategy Bi Developer Name | Role | Phone | [...] + + | 10/22/ | Office | [facility] | Andriy Amaya | Interstitial | | 2015 | Visit | [address] | MD [address] | cystitis (Primary | | | | [place] | [place] | Dx); Pyuria | | | | [address] | [place] [address] | | | | | [phone] | [phone] | | | | | | | [...] Action Dose Route Administered By 10/23/2015 Given 05924 Units Subcutaneous Marysol Nunes RN lidocaine 2% [...] [place] | | | | | | [address] | | | | | | | | +--------+---------+ + + + | 11/24/ | Office | Cardiology | [place] | | | 2019 | Visit | | SINDHU Erickson [address] | | | | | | [place] | | | | | | [place] [address] | | | | | | [phone] | | | | | | | | +--------+---------+ + + + | 03/01/ | Office | Pulmonology | Mukul Clark MD | | | 2020 | Visit | | [address] | | | | | | [place] [facility] [place] | | | | | | [address] | | | | | | | [...] [address] | [place] | [phone] | | [facility] | | [address] | | | - LABORATORY | | [...] [address] | [place] | [phone] | | [facility] | | [address] | | | - LABORATORY | | [...] 1.001 - 1.030 | | | | [place], | | | | | | [facility], [...]
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
--- OUTSIDE RECORDS SUMMARY | ~2019-09-27 | XMS | Encounter Summary ---
Demographics + + + | Address | [address] | | | [place] [address] | + + + | Home Phone [...] Providers + +------+ + | Care Design Release Engineer Name | Role | Phone | [...] | with brief | [address] | [place] | | | | n | loss of | [address] | [place], | | | | | consciousnes | [place], | [place] [address] | | | | | s | [place] [address] | Phone: | | | | | Post-concuss | Phone: | [phone] | | | | | ion vertigo | [phone] | Fax: | | | | | [phone] | Fax: | [phone] | | | | | (ICD-10-CM) | [phone] | | | | | | - [...] + + | 05/07/ | Office | [facility] | Aaron Rodriguez, | Dizziness (Primary | | 2017 | Visit | MED CTR THERAPY PT | MD [address] | Dx); Impaired | | | | OP [address] | [place] | mobility and | | | | [place] | [phone] | activities of daily | | | | [address] | | living; Concussion | | | | [phone] | Lakeshia Cleary, PT | with brief (less | | | | | [address] | than one hour) loss | | | | | [place] | of consciousness; | | | | | [address] | Intractable acute | | | | [...] might be different from t he original. [facility] CTR THERAPY PT OP [address] [place] [address] Physical Therapy Daily Treatment Note Date: 05/07/2016 [...] Rehab Precautions Office Visit from 05/01/2016 in [facility] CTR THERAPY PT OP Rehab [...] [place] | | | | | | [id number] | | | | | | | | +--------+---------+ + + + | 11/24/ | Office | Cardiology | [place], | | | 2019 | Visit | | SINDHU Erickson [address] | | | | | | [place] | | | | | | [place] [address] | | | | | | [phone] | | | | | | | | +--------+---------+ + + + | 03/01/ | Office | Pulmonology | Mukul Clark MD | | | 2020 | Visit | | [address] | | | | | | [place] | | | | | | [address] | | | | | | | [...]
--- OUTSIDE RECORDS SUMMARY | ~2019-09-27 | XMS | Encounter Summary ---
Demographics + + + | Address | [address] | | | [place] [address] | + + + | Home Phone [...] Team Providers + +------+ + | Care Counter Dish Carrier Name | Role | Phone | + +------+ + | Juan Cherry DO | PCP | | + +------+ + Encounter Details +--------+ + + + + | Date | Type | Department | Care Team | Description | +--------+ + + + + | 08/01/ | Orders Only | [facility] [place] | [place], | Paroxysmal atrial | | 2016 | | CARDIOLOGY [address] | Georgina, INDUSTRIAL ENGINEERING PROFESSOR [address] | tachycardia (HCC); | | | | [place], | [place], | Encounter for lipid | | | | [place] [address] | [place] [address] | screening for | | | | [phone] | [phone] | cardiovascular | | | | | | disease | +--------+ + + + + Social [...] | | | | | | [place] [address] | | | | | | [phone] | | | | | | | | +--------+---------+ + + + | 03/01/ | Office | Pulmonology | Amber, Mukul, MD | | | 2020 | Visit | | [address] | | | | | | [place] | | | | | | [address] | | | | | | | | +--------+---------+ + + + documented as of this encounter Visit Diagnoses + + | Diagnosis | + + | Paroxysmal atrial tachycardia (HCC) Paroxysmal supraventricular tachycardia | + + | Encounter for lipid screening for cardiovascular disease | + + documented in this encounter"
--- OUTSIDE RECORDS SUMMARY | ~2019-09-27 | XMS | Encounter Summary ---
Demographics + + + | Address | [address] | | | [place] [address] | + + + | Home Phone [...] Team Providers + +------+ + | Care State Farm Agent Name | Role | Phone | [...] | with brief | [address] | [place] | | | | n | loss of | [address] | [place], | | | | | consciousnes | [place], | [place] [address] | | | | | s | [place] [address] | Phone: | | | | | Post-concuss | Phone: | [phone] | | | | | ion vertigo | [phone] | Fax: | | | | | S06.0X9A | Fax: | [phone] | | | | | (ICD-10-CM) | [phone] | | | | | | - [...] Description | +--------+---------+ + + + | 06/05/ | Office | [facility] | Aaron Rodriguez, | Dizziness (Primary | | 2017 | Visit | MED CTR THERAPY PT | MD [address] | Dx); Impaired | | | | OP [address] | [place] | mobility and | | | | [place] | [id number] | activities of daily | | | | [address] | | living; Concussion | | | | [phone] | Lakeshia Cleary, PT | with brief (less | | | | | [address] | than one hour) loss | | | | | [place] | of consciousness; | | | | | [address] | Intractable acute | | | | [...] encounter Progress Notes Lakeshia Barkley, PT - 06/05/2016 10:14 AM PDTFormatting of this note might be different from t he original. [facility] CTR THERAPY PT OP [address] [place] [address] Physical Therapy Daily Treatment Note Date: 06/05/2016 Patient Information Patient Name: Rosario Malik Date of : 1965 Age: 51 y.o. Encounter Diagnoses Code Name Primary? R42 Dizziness Yes Z74.09 Impaired mobility and activities of daily living S06.0X9A Concussion with brief (less than one hour) loss of consciousness G44.311 Intractable acute post-traumatic headache Date of Onset: 04/02/2016 Referring Provider: Aaron Rodriguez MD # of PT Visits to Date: 4 Start Time: 1010 Stop time: 1045 Duration: 35 minutes Timed Treatment Codes: 35 minutes Rehab Precautions Office Visit from 05/01/2016 in [facility] CTR THERAPY PT OP Rehab Precautions Precautions None Pain Assessment: Subjective: Pt reports that she is very tired today. Has not been sleeping well and started smoking aga in (for the past two weeks); relates this to being stressed from family dynamics. Pt reports that she is having less PAINTING symptoms (only one last week) and no longer feeling dizzy but co ntinues to notice decreased balance. Pt requested to end session early due to fatigue. Goals: Patient Reported Outcome Goals Patient Reported [...] Patient Specific Functional Scale Goal 2 Status: 4 Objective: At parallel bar with intermittent UE support: -Standing on airex: feet together, semi-tandem, tandem: eyes open/closed with intermittent UE support 3x30 sec each HEP -rocker board: forward and lateral 60 sec x2 each: light UE support -Walking at parallel bar: tandem back, high knees 10 feet x4 laps: HEP Assessment: pt required seated/standing rest breaks due to fatigue; pt is demonstrating good progress i n balance but slow progress with activity tolerance. Pt would benefit from cont. Therapy to progress balance and improve activity tolerance to improve ability to complete daily tasks a nd decrease fall risk. Next Visit: cont. To progress vestibular rehab and balance Electronically signed by: Lakeshia Barkley PT, 06/05/2016 10:50 Patient Name: Rosario Malik/: 1965/ documented in [...] [place] | | | | | | [place] [address] | | | | | | [phone] | | | | | | | | +--------+---------+ + + + | 03/01/ | Office | Pulmonology | Mukul Clark MD | | | 2020 | Visit | | [address] | | | | | | [place] | | | | | | [address] | | | | | | | [...]
--- OUTSIDE RECORDS SUMMARY | ~2019-09-27 | XMS | Encounter Summary ---
Demographics + + + | Address | [address] | | | [place] [address] | + + + | Home Phone [...] Team Providers + +------+ + | Care Qa Test Lead Name | Role | Phone | + +------+ + PCP | Unavailable | + +------+ + Encounter Details +--------+ + + + + | Date | Type | Department | Care Team | Description | +--------+ + + + + | 07/26/ | Hospital | [facility] | Elda Miranda | | | 2010 | Encounter | MED CTR LABORATORY | MD [address] | | | | | [address] [place] | [address] [place] | | | | | [place], [place] | [place] [address] | | | | | [address] | [phone] | | | | | [phone] | | | +--------+ + + + [...] | | | | | | [place] [address] | | | | | | [phone] | | | | | | | | +--------+---------+ + + + | 03/01/ | Office | Pulmonology | Mukul Clark MD | | | 2020 | Visit | | [address] | | | | | | [place] | | | | | | [address] | | | | | | | | +--------+---------+ + + + documented as of this encounter Procedures + +--------+ + + + | Procedure Name | Priori | Date/Time | Associated Diagnosis | Comments | | | ty | | | | + +--------+ + + + | SHAHID JAMES, | Routin | 07/26/2010 | | Results for this | | REFLEX | e | 10:47 AM | | procedure are in the | | | | PDT | | results section. | + +--------+ + + + | URINALYSIS, REFLEX | Routin | 07/26/2010 | | Results for this | | MICROSCOPIC AND/OR | e | 10:47 AM | | procedure are in the | | CULTURE | | PDT | | results section. | + +--------+ + + + documented in this encounter Results UA, Microscopic, Reflex (07/26/2010 10:47 AM PDT) + + + + + + | Component | Value | Ref Range | Performed | Pathologist | | | | | At | Signature | + + + + + + | White Blood | 5-10 | 0 - 1 /hpf | [facility] [...] + + + + | Bacteria, | RARE | NONE /hpf | [facility] | | | Urine | | | [facility] | | | | | | MEDICAL | | | | | | CENTER - | | | | | | LABORATORY | | + + + + + + | Amorphous | SLIGHT | /hpf | [facility] | | | Crystals, | | | [facility] | | | Urine | | | MEDICAL | | | | | | CENTER - | | | | | | LABORATORY | | + + + + + + | Culture | YESComment: REFLEXED TO | | [facility] | | | Indicated | URINE CULTURE. | | [facility] | | | | [...] [address] | [place] | [phone] | | [facility] | | [address] | | | - LABORATORY | | | | + + + + + | [facility] | [address] | [place] | | | [facility] | | [address], [facility] | | | - LABORATORY | | | | + + + + + Urinalysis, Reflex Microscopic and/or Culture (07/26/2010 10:47 AM PDT) + + + + + + | Component | Value | Ref Range | Performed | Pathologist | | | | | At | Signature | + + + + + + | COLLECTION | UNKNOWN | | [facility] | | | METHOD 1 | | | [facility] | | [...] + + + + | Glucose, | 250 | NEGATIVE mg/dL | [facility] | | [...] + + + + | Ketones, | TRACE | NEGATIVE | [facility] | | | Urine | | | [facility] | | | | | | MEDICAL | | | | | | CENTER - | | | | | | LABORATORY | | + + + + + + | Specific | >=1.030 | 1.001 - 1.030 | [facility] | | | [place], | | | [facility] | | [...] + + + | pH, Urine | 5.0 | 5.0 - 8.0 | [facility] | | | | | | [facility] | | | | | | MEDICAL | | | | | | CENTER - | | | | | | LABORATORY | | + + + + + + | Protein, | 100 | NEGATIVE mg/dL | [facility] | | | Urine | | | [facility] | | | | | | MEDICAL | | | | | | CENTER - | | | | | | LABORATORY | | + + + + + + | Urobilinoge | >=8.0 | NORMAL EU/dL | [facility] | | [...] + + + + | Leukocyte | SMALL | NEGATIVE | [facility] | | | Esterase, | | | [facility] | | | Urine | | | MEDICAL | | | | | | CENTER - | | | | | | LABORATORY | | + + + + + + | MICROSCOPIC | YES | | [facility] | | | ? | | | [facility] | | [...] + | [facility] | [address] | [place] | [phone] | | [facility] | | [address] | | | - LABORATORY | | | | + + + + + | [facility] | [address] | [place] | | | [facility] | | [address], [facility] | | | - LABORATORY | | | | + + + + + documented in this encounter Visit Diagnoses Not on filedocumented in this encounter"
--- OUTSIDE RECORDS SUMMARY | ~2019-09-27 | XMS | Encounter Summary ---
Demographics + + + | Address | [address] | | | [place] [address] | + + + | Home Phone [...] Team Providers + +------+ + | Care Yoker Machine Operator Name | Role | Phone [...] THOM [place] | | | | | [address] | [place] [address] | | | | | [phone] | [phone] | | | | | | | [...] | | | | | | [place] [address] | | | | | | [phone] | | | | | | | [...]
--- OUTSIDE RECORDS SUMMARY | ~2019-09-27 | XMS | Encounter Summary ---
Demographics + + + | Address | [address] | | | [place] [address] | + + + | Home Phone [...] Team Providers + +------+ + | Care Basketball Coach Name | Role | Phone | [...] + + | 02/14/ | Telephone | [facility] | Jesus Quiles | Shortness of Breath | | 2012 | | PULMONARY [address] | [place] [address] [facility] | | | | | [place], | [place], [place] | | | | | [place] [address] | [id number] | | | | | [phone] | | | +--------+ + + + [...] [place] | | | | | | [address] | | | | | | | | +--------+---------+ + + + | 11/24/ | Office | Cardiology | [place], | | | 2019 | Visit | | SINDHU Erickson [address] | | | | | | [place] | | | | | | [place] [address] | | | | | | [phone] | | | | | | | [...]
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
--- OUTSIDE RECORDS SUMMARY | ~2019-09-27 | XMS | Encounter Summary ---
Demographics + + + | Address | [address] | | | [place] [address] | + + + | Home Phone [...] Providers + +------+ + | Care Grinder Needle Tip Name | Role | Phone | + +------+ + | Yong Cherry DO | PCP | | + +------+ + Encounter Details +--------+ + + + + | Date | Type | Department | Care Team | Description | +--------+ + + + + | 09/01/ | Emergency | [facility] | Heriberto, | Procedure and | | 2018 | | [facility] | Ozzy Kim MD [address] | treatment not | | | | CENTER [address] | [address] [place] | carried out due to | | | | [place] | [place] [address] | patient leaving | | | | [address] | [phone] | prior to being seen | | | | [phone] | | by health care | | | | | No, Physician p | provider (Primary | | | | [...] | | | | | order to [facility]. | | | | | + [...] | | | send order to [facility] | | | | | | [...] + documented as of this encounter ED Joann Gibbs RN - 09/01/2017 1:22 PM PDTOnly needed Holter Monitor removed, sent to [facility] rehab, not being seen in ED documented in this encounter Plan of Treatment [...] | | | | | | [place] [address] | | | | | | [phone] | | | | | | | | +--------+---------+ + + + | 03/01/ | Office | Pulmonology | Mukul Clark MD | | | 2020 | Visit | | [address] | | | | | | [place] | | | | | | [address] | | | | | | | [...] | | | FICATI | | | ON? | | | | | | 8 | | | 12:53? | | | HODGEN | | | , | | | GRETCH | | | EN | | | W?MRN: | | | | | | [id number] | | | [id number] | | | his | | | [...]
--- OUTSIDE RECORDS SUMMARY | ~2019-09-27 | XMS | Encounter Summary ---
Demographics + + + | Address | [address] | | | [place] [address] | + + + | Home Phone [...] Team Providers + +------+ + | Care Farm Labor Contractor Name | Role | Phone | [...] + + | 03/25/ | [facility] | [facility] | Daryl Hargrove | Diverticulitis of | | 2014 | Visit | CARE [address] | Ernie Sanabria MD | large intestine | | | | [place], [place] | [address] | without perforation | | | | [address] | [place] | or abscess without | | | | [phone] | [address] | bleeding (Primary | | | | [...] 2020 | Visit | | [address] [facility] | | | | | | [place] | | | | | | [phone] | | | | | | | | +--------+---------+ + + + | 11/24/ | Office | Cardiology | [place], | | | 2019 | Visit | | SINDHU Erickson [address] | | | | | | [place], | | | | | | [place] [address] | | | | | | [phone] | | | | | | | | +--------+---------+ + + + | 03/01/ | Office | Pulmonology | Mukul Clark MD | | | 2020 | Visit | | [address] | | | | | | [place] | | | | | | [address] | | | | | | | [...] 1.001 - 1.030 | | | | [place], | | | | | | UA, [...]
--- OUTSIDE RECORDS SUMMARY | ~2019-09-27 | XMS | Encounter Summary ---
Demographics + + + | Address | [address] | | | [place] [address] | + + + | Home Phone [...] Team Providers + +------+ + | Care Events Intern Name | Role | Phone | [...] [place] | | | | | [address] | [place] [address] | | | | | [phone] | [phone] | | | | | | | [...] | | | | | | [place] [address] | | | | | | [phone] | | | | | | | [...]
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
--- OUTSIDE RECORDS SUMMARY | ~2019-09-27 | XMS | Encounter Summary ---
Demographics + + + | Address | [address] | | | [place] [address] | + + + | Home Phone [...] Team Providers + +------+ + | Care Mechanical Estimator Name | Role | Phone | [...] + + | 06/27/ | Refill | [facility] | Andriy Weber | Medication Refill | | 2018 | | [address] | [address] | | | | | [place] | [place] | | | | | [address] | [place] [address] | | | | | [phone] | [phone] | | | | | | | [...] | | | | | | [place] [address] | | | | | | [phone] | | | | | | | [...]
--- OUTSIDE RECORDS SUMMARY | ~2019-09-27 | XMS | Encounter Summary ---
Demographics + + + | Address | [address] | | | [place] [address] | + + + | Home Phone [...] Team Providers + +------+ + | Care Stock Trader Name | Role | Phone | + [...] | apnea (adult) | | | | [place], | | (pediatric) (Primary | | | | [place] [address] | | Dx) | | | | [phone] | | | +--------+ + + + [...] [place] | | | | | | [address] | | | | | | | | +--------+---------+ + + + | 11/24/ | Office | Cardiology | [place], | | | 2019 | Visit | | SINDHU Erickson [address] | | | | | | [place], | | | | | | [place] [address] | | | | | | [phone] | | | | | | | | +--------+---------+ + + + | 03/01/ | Office | Pulmonology | Mukul Clark MD | | | 2020 | Visit | | [address] | | | | | | [place] | | | | | | [address] | | | | | | | | +--------+---------+ + + + documented as of this encounter Visit Diagnoses + + | Diagnosis | + + | Obstructive sleep apnea (adult) (pediatric) - Primary | + + documented in this encounter"
--- OUTSIDE RECORDS SUMMARY | ~2019-09-27 | XMS | Encounter Summary ---
Demographics + + + | Address | [address] | | | [place] [address] | + + + | Home Phone [...] Team Providers + +------+ + | Care Wafer Polishing Lead Worker Name | Role | Phone | [...] | | | | [facility] | [address] | [address] | | | | | EXERCISE | [place], | [place] | | | | | | [place] [address] | [place], [place] | | | | | | Phone: | [address] | | | | | | [phone] | Phone: | | | | | | Fax: | [phone] | | | | | | [phone] | Fax: | | | | | | | [phone] | +--------+--------+ + + + + Encounter Details +--------+---------+ + + + | Date | Type | Department | Care Team | Description | +--------+---------+ + + + | 07/09/ | Office | [facility] | Jared Mcdonough, | Chronic obstructive | | 2017 | Visit | MED CTR CARDIAC | MD Migdalia King | pulmonary disease, | | | | REHABILITATION [address] [place], | unspecified COPD | | | | [address] [place] | [place] [address] | type (HCC) (Primary | | | | [place] [address] | [phone] | Dx); Pulmonary | | | | [phone] | | emphysema, | | | | [...] | | | | | | [place] [address] | | | | | | [phone] | | | | | | | | +--------+---------+ + + + | 03/01/ | Office | Pulmonology | Mukul Clark MD | | | 2020 | Visit | | [address] | | | | | | [place] | | | | | | [address] | | | | | | | | +--------+---------+ + + + documented as of this encounter Visit Diagnoses + + | Diagnosis | + + | Chronic obstructive pulmonary disease, unspecified COPD type (HCC) - Primary | + + | Pulmonary emphysema, unspecified emphysema type (HCC) | + + documented in this encounter"
--- OUTSIDE RECORDS SUMMARY | ~2019-09-27 | XMS | Encounter Summary ---
Demographics + + + | Address | [address] | | | [place] [address] | + + + | Home Phone [...] Team Providers + +------+ + | Care Presser Hand Name | Role | Phone | [...] | | | | [facility] | [address] | [address] | | | | | EXERCISE | [place], | [place] | | | | | | [place] [address] | [place], [place] | | | | | | Phone: | [address] | | | | | | [phone] | Phone: | | | | | | Fax: | [phone] | | | | | | [phone] | Fax: | | | | | | | [phone] | +--------+--------+ + + + + Encounter Details +--------+---------+ + + + | Date | Type | Department | Care Team | Description | +--------+---------+ + + + | 07/02/ | Office | [facility] | Jared Mcdonough, | Chronic obstructive | | 2017 | Visit | MED CTR CARDIAC | MD Migdalia King | pulmonary disease, | | | | REHABILITATION [address] [place], | unspecified COPD | | | | [address] [place] | [place] [address] | type (HCC) (Primary | | | | [place] [address] | [phone] | Dx); Mild persistent | | | | [phone] | | asthma without | | | [...] [place] | | | | | | [id number] | | | | | | | | +--------+---------+ + + + | 11/24/ | Office | Cardiology | [place], | | | 2019 | Visit | | SINDHU Erickson [address] | | | | | | [place] | | | | | | [place] [address] | | | | | | [phone] | | | | | | | | +--------+---------+ + + + | 03/01/ | Office | Pulmonology | Mukul Clark MD | | | 2020 | Visit | | [address] | | | | | | [place] [facility] [place] | | | | | | [address] | | | | | | | | +--------+---------+ + + + documented as of this encounter Visit Diagnoses + + | Diagnosis | + + | Chronic obstructive pulmonary disease, unspecified COPD type (HCC) - Primary | + + | Mild persistent asthma without complication Unspecified asthma | + + documented in this encounter"
--- OUTSIDE RECORDS SUMMARY | ~2019-09-27 | XMS | Encounter Summary ---
Demographics + + + | Address | [address] | | | [place] [address] | + + + | Home Phone [...] Providers + +------+ + | Care English As A Second Language Instructor Name | Role | Phone | + +------+ + | Juan Cherry DO | PCP | | + +------+ + Reason for Visit +--------+--------+ + | Reason | Onset | Comments | | | Date | | +--------+--------+ + | Other | 08/11/ | decision to quit job | | | 2013 | | +--------+--------+ + Encounter Details +--------+ + + + + | Date | Type | Department | Care Team | Description | +--------+ + + + + | 08/11/ | Telephone | [facility] | Kevin Sandoval, | Other (decision to | | 2013 | | PULMONARY [address] | MD [address] | quit job) | | | | [place], | [place] | | | | | [place] [address] | [address] | | | | | [phone] | | | +--------+ + + + [...] this encounter Miscellaneous Notes Telephone Encounter - Loraine Hawkins RN - 08/11/2013 3:51 PM PDTPatient notified. She will see her PCP tomorrow about that issue. She asks about getting the overnight oximetry d one. She said her sats dropped to 80 the other day and she stayed home from work. I advised her to call [facility] and see if they have a machine for her to pick out hand to do the overnight aldo dy on while on CPAP. She said she'd call them. elephone Encounter - Kevin Sandoval MD - 08/11/2013 3:27 P M PDTThe decision regarding quitting one's job or filing for disability is often a personal one. I am not qualified to comment on patient's ability to perform work activities. That w ould likely require a disability evaluation by a physician who is qualified to do so.Electro nically signed by Kevin Sandoval MD at 08/11/2013 3:29 PM PDTTelephone Encounter - Loraine Patricio RN - 08/11/2013 2:34 PM PDTPatient calls to ask if Dr Sandoval agrees with [facility] decision to quit her job. 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 Her emp loyer asked her to check with her physician. I told her we'll get back to her with his reply . documented in thi s encounter Plan of [...] [place] | | | | | | [address] | | | | | | | | +--------+---------+ + + + | 11/24/ | Office | Cardiology | [place], | | | 2019 | Visit | | SINDHU Erickson [address] | | | | | | [place] | | | | | | [place] [address] | | | | | | [phone] | | | | | | | | +--------+---------+ + + + | 03/01/ | Office | Pulmonology | Mukul Clark MD | | | 2020 | Visit | | [address] | | | | | | [place] | | | | | | [address] | | | | | | | | +--------+---------+ + + + documented as of this encounter Visit Diagnoses + + | Diagnosis | + + | Central sleep apnea Primary central sleep apnea | + + documented in this encounter
--- OUTSIDE RECORDS SUMMARY | ~2019-09-27 | XMS | Encounter Summary ---
Demographics + + + | Address | [address] | | | [place] [address] | + + + | Home Phone [...] + +------+ + | Care Director Of Graduate Medical Education Name | Role | Phone | + [...] + + | 03/22/ | Office | [facility] [place] | [place], | COPD exacerbation | | 2013 | Visit | PULMONARY [address] | Loreta Alonso MD | ([facility]) (Primary Dx); | | | | [place], | | Complex sleep apnea | | | | [place] [address] | | syndrome | | | | [phone] | | | +--------+---------+ + + + [...] ER. I resent the ProAir prescription to [facility]. documented in this encounter Progress Notes Loreta London MD - 03/22/2013 10:12 AM PSTFormatting of this note might be differe nt from the original. Pulmonary Follow Up Note Loreta London MD [facility] [address] [place], [address] [facility] Rosario Malik is a 48 y.o. [...] ProAir in 2 weeks. 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 Taper. Respiratory Therapy Supplies [facility] Please provide patient with necessary CPAP supplies ( she did not specify, okay to send order as appropriate) Diagnosis Code(s)327.23 . Length of Need 99 months. Please send order to [facility]. 1 each 0 Respiratory Therapy Supplies [facility] Change CPAP back to 11-14 cm [...] made to ensure accuracy; however, inadvertent computerized mail list librarian errors may be pre sent. documented in [...] | | | | | [place], [place] | | | | | | [address] | | | | | | | | +--------+---------+ + + + | 11/24/ | Office | Cardiology | [place], | | | 2019 | Visit | | SINDHU Erickson [address] | | | | | | [place], | | | | | | [place] [address] | | | | | | [phone] | | | | | | | | +--------+---------+ + + + | 03/01/ | Office | Pulmonology | Mukul Clark MD | | | 2020 | Visit | | [address] | | | | | | [place] | | | | | | [address] | | | | | | | | +--------+---------+ + + + documented as of this encounter Visit Diagnoses + + | Diagnosis | + + | COPD exacerbation (HCC) - Primary Obstructive chronic bronchitis with exacerbation | + + | Complex sleep apnea syndrome Unspecified sleep apnea | + + documented in this encounter
--- OUTSIDE RECORDS SUMMARY | ~2019-09-27 | XMS | Encounter Summary ---
Demographics + + + | Address | [address] | | | [place] [address] | + + + | Home Phone [...] Team Providers + +------+ + | Care Receiving Specialist Name | Role | Phone | [...] | 01/13/ | Office | [facility] [place] | [place], | Central sleep apnea; | | 2011 | Visit | PULMONARY [address] | Loreta Alonso MD | Obstructive sleep | | | | [place], | | apnea; Insomnia | | | | [place] [address] | | | | | | [phone] | | | +--------+---------+ + + + [...] [place] | | | | | | [address] | | | | | | | | +--------+---------+ + + + | 11/24/ | Office | Cardiology | [place], | | | 2019 | Visit | | SINDHU Erickson [address] | | | | | | [place], | | | | | | [place] [address] | | | | | | [phone] | | | | | | | | +--------+---------+ + + + | 03/01/ | Office | Pulmonology | Mukul Clark MD | | | 2020 | Visit | | [address] | | | | | | [place] | | | | | | [address] | | | | | | | [...]
--- OUTSIDE RECORDS SUMMARY | ~2019-09-27 | XMS | Encounter Summary ---
Demographics + + + | Address | [address] | | | [place] [address] | + + + | Home Phone [...] Team Providers + +------+ + | Care Houseperson Name | Role | Phone | + [...] Description | +--------+--------+ + + + | 03/05/ | Refill | [facility] [place] | [place], | Medication Refill | | 2020 | | CARDIOLOGY [address] | SINDHU Erickson [address] | | | | | [place], | [place], | | | | | [place] [address] | [place] [address] | | | | | [phone] | [phone] | | | | | | | [...] | | | | | | [place] [address] | | | | | | [phone] | | | | | | | [...]
--- OUTSIDE RECORDS SUMMARY | ~2019-09-27 | XMS | Encounter Summary ---
Demographics + + + | Address | [address] | | | [place] [address] | + + + | Home Phone [...] Providers + +------+ + | Care Accounts Payable Processor Name | Role | Phone | + +------+ + PCP | Unavailable | + +------+ + Encounter Details +--------+ + + + + | Date | Type | Department | Care Team | Description | +--------+ + + + + | 11/08/ | Hospital | [facility] | Ozzy Delcid, | | | 2009 - | Encounter | MED CTR OP REHAB | [address] | | | | | [address] [place] | [address] [place], | | | 11/23/ | | [place] [address] | [place] [address] | | | 2009 | | [phone] | [phone] | | | | | | | [...] | | | | | | [place] [address] | | | | | | [phone] | | | | | | | | +--------+---------+ + + + | 03/01/ | Office | Pulmonology | Mukul Clark MD | | | 2020 | Visit | | [address] | | | | | | [place] | | | | | | [address] | | | | | | | | +--------+---------+ + + + documented as of this encounter Visit Diagnoses Not on filedocumented in this encounter"
--- OUTSIDE RECORDS SUMMARY | ~2019-09-27 | XMS | Encounter Summary ---
Demographics + + + | Address | [address] | | | [place] [address] | + + + | Home Phone [...] Team Providers + +------+ + | Care In File Operator Name | Role | Phone | [...] [address] | | | | | [place], | [place], | | | | | [place] [address] | [place] [address] | | | | | [phone] | [phone] | | | | | | | [...] | | | | | | [place] [address] | | | | | | [phone] | | | | | | | | +--------+---------+ + + + | 03/01/ | Office | Pulmonology | Mukul Clark MD | | | 2020 | Visit | | [address] | | | | | | [place] | | | | | | [address] | | | | | | | | +--------+---------+ + + + documented as of this encounter Visit Diagnoses Not on filedocumented in this encounter"
--- OUTSIDE RECORDS SUMMARY | ~2019-09-27 | XMS | Encounter Summary ---
Demographics + + + | Address | [address] | | | [place] [address] | + + + | Home Phone [...] Team Providers + +------+ + | Care Etcher Hand Name | Role | Phone | [...] + + | 11/03/ | Telephone | [facility] | Kevin Sandoval, | Shortness of Breath | | 2013 | | PULMONARY [address] | MD [address] | | | | | [place], | [place] | | | | | [place] [address] | [address] | | | | | [phone] | | | +--------+ + + + [...] with talking but improving.Electronically sig venkat by Marilny Osborne RN at 11/04/2013 1:37 PM PDTTelephone [...] sta rted on them. She has to crop picker her granddaughter from school now. If [...] Dr. Bishop levine when he returns to [facility]. To urgent care or ER if not [...] | | | | | | [place] [address] | | | | | | [phone] | | | | | | | | +--------+---------+ + + + | 03/01/ | Office | Pulmonology | Mukul Clark MD | | | 2020 | Visit | | [address] | | | | | | [place] | | | | | | [address] | | | | | | | | +--------+---------+ + + + documented as of this encounter Visit Diagnoses Not on filedocumented in this encounter
--- OUTSIDE RECORDS SUMMARY | ~2019-09-27 | XMS | Encounter Summary ---
Demographics + + + | Address | [address] | | | [place] [address] | + + + | Home Phone [...] Team Providers + +------+ + | Care Silk Screen Operator Name | Role | Phone | [...] [address] | | | | | [place], | [place] | | | | | [place] [address] | [address] | | | | | [phone] | | | +--------+--------+ + + + [...] [place] | | | | | | [address] | | | | | | | | +--------+---------+ + + + | 11/24/ | Office | Cardiology | [place] | | | 2019 | Visit | | SINDHU Erickson [address] | | | | | | [place] | | | | | | [place] [address] | | | | | | [phone] | | | | | | | [...]
--- OUTSIDE RECORDS SUMMARY | ~2019-09-27 | XMS | Encounter Summary ---
Demographics + + + | Address | [address] | | | [place] [address] | + + + | Home Phone [...] Providers + +------+ + | Care Rail Doweling Machine Operator Name | Role | Phone | + +------+ + | Juan Cherry DO | PCP | | + +------+ + Reason for Visit + +--------+ + | Reason | Onset | Comments | | | Date | | + +--------+ + | Treatment Plans | 07/24/ | | | | 2019 | | + +--------+ + Encounter Details +--------+ + + + + | Date | Type | Department | Care Team | Description | +--------+ + + + + | 07/24/ | Telephone | [facility] | Meghan Garcia MD | Treatment Plans | | 2019 | | SLEEP DISORDER [address] | | | | | [place] | [place] | | | | | [place] [address] | [address] | | | | | [phone] | | | +--------+ + + + [...] this encounter Miscellaneous Notes Telephone Encounter - Meghan Garcia MD - 07/27/2018 9:55 AM PDTCalled the patient and she had left a message stated that she continued to have daytime sleepiness and drowsy driving. She has been on bilevel machine for obstructive sleep apnea. She has history of CPAP into [facility]. titration study on April 28, 2018 showed that her sleep apnea was controlled on bilevel -S at 15/11 cm H2O with a full facemask. When I saw her on July 02, 2018, I noticed that her amor nload shows that she was on bilevel-ST(the mode that she used to be before and I am not sure why she was put on this mode which is not appropriate mode for her sleep apnea). I sohail mark called the [facility], and Van checked her machine and download and let me know that she was on bilevel-S(not ST). He sent me another download(06/14-07/13/18), and it is still shows maria t she is on bilevel ST. Her average AHI has been staying between 10 and 11. It also shows large leak. Rosario admits that there is mask leak, but states it has improved for the past few nights that she has been wearing a silicon ffm. Gets about 4 hours of sleep at night. She goes to bed at 11:15 PM and usually falls asleep quickly. She wakes up between 1 and 1:30 AM for urination and goes back to sleep. She the n wakes up between 3:30 and 4 AM and feels awake and cannot go back to sleep. She admits th at she can take up to 2 hours nap in the afternoon and this can affect her sleep at night. I discussed that she has chronic sleep deprivation and that one of the main causes of her d aytime sleepiness. I recommended trying to avoid any naps during the day, to see if it help s with her sleep apnea is. I also advised to avoid driving in case of drowsiness, and to pu ll over if she was driving and was drowsy. I also think that he should get another download from her machine and reevaluate her leaks and AHI now that she has changed her mask. She agrees. She is going to take her machine to [facility] on July 27, and they will send me a download. I discussed that we should prob ably perform a diagnostic polysomnography and reevaluate her sleep breathing disorder withou t the machine. She verbalized understanding. I will look at a download and we'll make furt her decisions accordingly. She verbalized understanding and agreed. documented in this encounter Plan of Treatment +--------+---------+ + + + | Date | Type | Specialty | Care Team | Description | +--------+---------+ + + + | 09/27/ | Office | Sleep Medicine | Meghan Garcia MD | | | 2019 | Visit | | [address] | | | | | | [place] | | | | | | [id number] | | | | | | | | +--------+---------+ + + + | 11/24/ | Office | Cardiology | [place], | | | 2019 | Visit | | [address]ks[address] | | | | | | [place], | | | | | | [place] [address] | | | | | | [phone] | | | | | | | | +--------+---------+ + + + | 03/01/ | Office | Pulmonology | Mukul Clark MD | | | 2020 | Visit | | [address] | | | | | | [place] | | | | | | [phone] | | | | | | | | +--------+---------+ + + + documented as of this encounter Visit Diagnoses Not on filedocumented in this encounter"
--- OUTSIDE RECORDS SUMMARY | ~2019-09-27 | XMS | Encounter Summary ---
Demographics + + + | Address | [address] | | | [place] [address] | + + + | Home Phone | | + + + | Preferred Language | Unknown | + + + | Marital Status | Single | + + + | Restoration Affiliation | [id number] | + + + | Race | Unknown | + + + | Ethnic Group | Unknown | + + + Author + + + | Author | [facility] | | | and [place] | + + + | Organization | [facility] | | | [...] Providers + +------+ + | Care Laboratory Tester Name | Role | Phone | + +------+ + | Juan Cherry DO | PCP | | + +------+ + Encounter Details +--------+ + + + + | Date | Type | Department | Care Team | Description | +--------+ + + + + | 06/18/ | Hospital | [facility] | Kevin Sandoval, | COPD (chronic | | 2013 | Encounter | MED CTR XRAY [address] | MD [address] | obstructive | | | | [place] | [place] | pulmonary disease) | | | | [place] [address] | [address] | | | | | [phone] | | | +--------+ + + + [...] | | | | | order to [facility]. | | | | | [...] | | | [facility]. | | | | | | | [...] [place] | | | | | | [address] | | | | | | | | +--------+---------+ + + + | 11/24/ | Office | Cardiology | [place], | | | 2019 | Visit | | SINDHU Erickson [address] | | | | | | [place], | | | | | | [place] [address] | | | | | | [phone] | | | | | | | | +--------+---------+ + + + | 03/01/ | Office | Pulmonology | Mukul Clark MD | | | 2020 | Visit | | [address] | | | | | | [place] | | | | | | [address] | | | | | | | [...] LOBE AIRSPACE DISEASE. Dictated and Signed by: Frances Calvillo MD Electronically signed: 06/18/2013 1:04 PM | | [...] + | MISCELLANEOUS LAB | | | [phone] | + +---------+ + + | MISCELANIOUS LAB | | | [phone] | + +---------+ + + documented in this encounter Visit Diagnoses + + | Diagnosis | + + | COPD (chronic obstructive pulmonary disease) Chronic airway obstruction, not | | elsewhere classified | + + documented in this encounter"
--- OUTSIDE RECORDS SUMMARY | ~2019-09-27 | XMS | Encounter Summary ---
Demographics + + + | Address | [address] | | | [place] [address] | + + + | Home Phone [...] Providers + +------+ + | Care Doctor Osteopathic Name | Role | Phone | + [...] W | Loreta Alonso MD | ([facility]) (Primary Dx); | | | | [place], | | GARRY on CPAP; Tobacco | | | | [place] [address] | | abuse | | | | [phone] | | | +--------+---------+ + + + [...] done after today. She is moving to [place] in August. 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 Please send order to [place] [facility]. This is not a new [...] 02/24/2011 Tdap 01/22/2008 Dates: 05/11/12-08/08/12 Machine type: [facility] Company: [employer] CPAP Pressure: 13 cmH2O AHI: 6.1 events/hour [...] try switching her back to auto at [id number]. Th raven are not typically central apneas, [...] for 10 days. 2.Change CPAP pressure to [id number]. 3.Work on smoking cessation. 4.Bring download to next visit. She was advised to call if new pulmonary symptoms were to develop. Return to clinic in 4 weeks, or sooner with concerns. CC: Juan Cherry Portions of this report were transcribed using voice recognition software. Every effort wa s made to ensure accuracy; however, inadvertent computerized vacation guide errors may be pre sent. documented in [...] | | | | | | [place] [address] | | | | | | [phone] | | | | | | | | +--------+---------+ + + + | 03/01/ | Office | Pulmonology | Mukul Clark MD | | | 2020 | Visit | | [address] | | | | | | [place] | | | | | | [address] | | | | | | | [...]
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
--- OUTSIDE RECORDS SUMMARY | ~2019-09-27 | XMS | Encounter Summary ---
Demographics + + + | Address | [address] | | | [place] [address] | + + + | Home Phone [...] Team Providers + +------+ + | Care Job Boss Name | Role | Phone | [...] + + | 11/08/ | Office | [facility] | Lencho Astorga, | Axillary abscess | | 2015 | Visit | CARE [address] | [address] | (Primary Dx) | | | | [place] | [place] | | | | | [address] | [address] | | | | | [phone] | | | +--------+---------+ + + + [...] of the left axilla which was drained. drew is here for a simple recheck. [...] [place] | | | | | | [phone] | | | | | | | | +--------+---------+ + + + | 11/24/ | Office | Cardiology | [place], | | | 2019 | Visit | | SINDHU Erickson [address] | | | | | | [place], | | | | | | [place] [address] | | | | | | [phone] | | | | | | | | +--------+---------+ + + + | 03/01/ | Office | Pulmonology | Mukul Clark MD | | | 2020 | Visit | | [address] | | | | | | [place] | | | | | | [phone] | | | | | | | | +--------+---------+ + + + documented as of this encounter Visit Diagnoses + + | Diagnosis | + + | Axillary abscess - Primary Cellulitis and abscess of upper arm and forearm | + + documented in this encounter"
--- OUTSIDE RECORDS SUMMARY | ~2019-09-27 | XMS | Encounter Summary ---
Demographics + + + | Address | [address] | | | [place] [address] | + + + | Home Phone [...] Providers + +------+ + | Care Bottle House Cleaners Supervisor Name | Role | Phone | [...] on | MED CTR THERAPY PT | STEAM PRESSER [address] | | | | | OP [address] | [place], [place] | | | | | [place], [place] | [address] | | | | | [address] | [phone] | | | | | [phone] | | | +--------+ + + + [...] Low PTA - 05/18/2013 [facility] [address] [place] [address] Cancellation/No Show Date: 05/18/2013 Patient Information Patient [...] [place] | | | | | | [id number] | | | | | | | | +--------+---------+ + + + | 11/24/ | Office | Cardiology | [place], | | | 2019 | Visit | | SINDHU Erickson [address] | | | | | | [place], | | | | | | [place] [address] | | | | | | [phone] | | | | | | | [...]
--- OUTSIDE RECORDS SUMMARY | ~2019-09-27 | XMS | Encounter Summary ---
Demographics + + + | Address | [address] | | | [place] [address] | + + + | Home Phone [...] Team Providers + +------+ + | Care Calliope Player Name | Role | Phone | + +------+ + PCP | Unavailable | + +------+ + Encounter Details +--------+ + + + + | Date | Type | Department | Care Team | Description | +--------+ + + + + | 10/11/ | Hospital | [facility] | Berna Vizcaino MD | HEADACHE; | | 2010 | Encounter | CONVERSION DE[address] | [address] | Diplopia; | | | | [address] | [place] [address] | Dizziness | | | | [place], [place] | [phone] | | | | | [address] | | | | | | [phone] | | | +--------+ + + + [...] | | | | | | [place] [address] | | | | | | [phone] | | | | | | | | +--------+---------+ + + + | 03/01/ | Office | Pulmonology | Mukul Clark MD | | | 2020 | Visit | | [address] | | | | | | [place] | | | | | | [address] | | | | | | | [...] Performed At | + + + | [facility] [address] Ph: | | | Patient Name: JADYN SCHMITZ Date of : | | | 1965 Medical Record: [id number] Account: [id number] | | | Exam Date/Time: 10/11/2010 12:00 Ordering | | | Physician: BERNA VIZCAINO Order Detail: [id number] Exam Description: CT | [...] The data set was also examined with FundersClub 3D software | | | for evaluation [...] - 10/17/2018 5:21 PM PDT | | [facility] | | [facility] [address] | | | | | | Patient Name: JADYN SCHMITZ | | Date of : 1965 | | Medical Record: [id number] | | Account: [id number] | | | | | | Exam Date/Time: 10/11/2010 12:00 | | Ordering Physician: BERNA VIZCAINO | | Order Detail: [id number] | | [...] set was also examined with | | [employer] 3D software for evaluation of the cerebral [...]
--- OUTSIDE RECORDS SUMMARY | ~2019-09-27 | XMS | Encounter Summary ---
Demographics + + + | Address | [address] | | | [place] [address] | + + + | Home Phone [...] Team Providers + +------+ + | Care Chemical Pathologist Name | Role | Phone | + [...] [address] | | | | | [place], | [place], | | | | | [place] [address] | [place] [address] | | | | | [phone] | [phone] | | | | | | | [...] | | | | | | [place] [address] | | | | | | [phone] | | | | | | | | +--------+---------+ + + + | 03/01/ | Office | Pulmonology | Mukul Clark MD | | | 2020 | Visit | | [address] | | | | | | [place] | | | | | | [address] | | | | | | | | +--------+---------+ + + + documented as of this encounter Visit Diagnoses Not on filedocumented in this encounter"
--- OUTSIDE RECORDS SUMMARY | ~2019-09-27 | XMS | Encounter Summary ---
Demographics + + + | Address | [address] | | | [place] [address] | + + + | Home Phone [...] Team Providers + +------+ + | Care Loss Prevention Consultant Name | Role | Phone | + +------+ + | Juan Cherry DO | PCP | | + +------+ + Encounter Details +--------+ + + + + | Date | Type | Department | Care Team | Description | +--------+ + + + + | 06/18/ | Hospital | [facility] | Kevin Sandoval, | COPD (chronic | | 2013 | Encounter | MED CTR XRAY [address] | MD [address] | obstructive | | | | [place] | [place] | pulmonary disease) | | | | [place] [address] | [address] | | | | | [phone] | | | +--------+ + + + [...] | | | | send order to [facility] | | | | | | | [facility]. | | | | | | | [...] [place] | | | | | | [address] | | | | | | | | +--------+---------+ + + + | 11/24/ | Office | Cardiology | [place], | | | 2019 | Visit | | SINDHU Erickson [address] | | | | | | [place], | | | | | | [place] [address] | | | | | | [phone] | | | | | | | | +--------+---------+ + + + | 03/01/ | Office | Pulmonology | Mukul Clark MD | | | 2020 | Visit | | [address] | | | | | | [place] | | | | | | [address] | | | | | | | [...] + | MISCELLANEOUS LAB | | | [phone] | + +---------+ + + | MISCELANIOUS LAB | | | [phone] | + +---------+ + + documented in this encounter Visit Diagnoses + + | Diagnosis | + + | COPD (chronic obstructive pulmonary disease) Chronic airway obstruction, not | | elsewhere classified | + + documented in this encounter"
--- OUTSIDE RECORDS SUMMARY | ~2019-09-27 | XMS | Encounter Summary ---
Demographics + + + | Address | [address] | | | [place] [address] | + + + | Home Phone [...] Team Providers + +------+ + | Care Compensation And Benefits Manager Name | Role | Phone | [...] | | | | Gastroesopha | MD eJsus | [facility] | | | | | geal reflux | [address] | MEDICAL | | | | | disease, | [address] | CENTER [address] | | | | | esophagitis | [address] | [place] | | | | | presence not | [place], [place] | [place], | | | | | specified | [address] | [place] [address] | | | | | Procedures | Phone: | Phone: | | | | | [place] Gastric | [phone] | [phone] | | | | | Emptying | Fax: | Fax: | | | | | | [phone] | [phone] | +--------+--------+ + + + + Reason [...] | | Gastroesopha | MD Jesus | [facility] | | | | | geal reflux | [address] | MEDICAL | | | | | disease, | [address] | CENTER [address] | | | | | esophagitis | [address] | [place] | | | | | presence not | [place], [place] | [place], | | | | | specified | [address] | [place] [address] | | | | | Procedures | Phone: | Phone: | | | | | NM Gastric | [phone] | [phone] | | | | | Emptying | Fax: | Fax: | | | | | | [phone] | [phone] | +--------+--------+ + + + + Encounter Details +--------+ + + + + | Date | Type | Department | Care Team | Description | +--------+ + + + + | 04/02/ | Hospital | [facility] | Dio Yun | Gastroesophageal | | 2017 | Encounter | MED CTR NUCLEAR | MD Jesus [address] | reflux disease, | | | | MEDICINE [address] | [address] | esophagitis presence | | | | [place], | [place], [place] | not specified | | | | [place] [address] | [address] | | | | | [phone] | [phone] | | | | | | | [...] | | | | | order to [facility]. | | | | | [...] | | | [facility]. | | | | | | [...] | | | | | | ([facility]) | | | | | [...] | 0 | 10/13/19 | | | [facility] | mouth as needed. | | | 16 | 7 | | -Cod [id number] MG | | | | | | [...] | | | | | | ([facility]) | | | | | [...] | | | | | | [place] [address] | | | | | | [phone] | | | | | | | | +--------+---------+ + + + | 03/01/ | Office | Pulmonology | Mukul Clark MD | | | 2020 | Visit | | [address] | | | | | | [place] | | | | | | [address] | | | | | | | [...] Mcbride Results In - 04/02/2016 11:38 AM [facility] NUCLEAR GASTRIC EMPTYING STUDY 04/02/2016 | [...] PST | mona | | | | PRN, Other, Starting 04/02/16 | | | | | | | at 0844, For 1 dose, Nuclear | | | | | | | Medicine | | | | | | + +--------+ + +------+------+ +---+---+ | | | +---+---+ documented in this encounter
--- OUTSIDE RECORDS SUMMARY | ~2019-09-27 | XMS | Encounter Summary ---
Demographics + + + | Address | [address] | | | [place] [address] | + + + | Home Phone [...] Providers + +------+ + | Care Roll Machine Operator Name | Role | Phone | + +------+ + | Juan Cherry DO | PCP | | + +------+ + Reason for Visit +--------+--------+ + | Reason | Onset | Comments | | | Date | | +--------+--------+ + | Other | 11/22/ | Post op pain | | | 2016 | | +--------+--------+ + Encounter Details +--------+ + + + + | Date | Type | Department | Care Team | Description | +--------+ + + + + | 11/22/ | Telephone | [facility] [place] [facility] | Andriy Weber | Other (Post op pain) | | 2015 | | [address] | MD [address] | | | | | [place] | [place] | | | | | [address] | [place] [address] | | | | | [phone] | [phone] | | | | | | | [...] Telephone Encounter - Nancy Dalal CMA - 11/23/2015 2:28 PM Denisseetmeghna called regarding 11/03 urethra and bladder pain she has been having since her surgery 11/22/15. She has taken 3 Hydrocodone/APAP today already and has not helped with the pain. She did have some b leeding this am, quite a bit of it, but has subsided now. I called and spoke to Dr. Gus ortega is out of office this afternoon. He suggested she take 2 Hydrocodone every 8 hours PRN pa in and Oxybutynine every 8 hours. If that does not help the pain, then she will need to go t o Urgent care or ER. Pt. States she will increase the medication as directed and be seen if needed. She had no further questions.Electronically signed by Nancy Dalal CMA at 6 2:38 PM PDTdocumented in this encounter Plan of Treatment +--------+---------+ + + + | Date | Type | Specialty | Care Team | Description | +--------+---------+ + + + | 09/27/ | Office | Sleep Medicine | Jose, Meghan, MD | | | 2019 | Visit | | [address] | | | | | | [place] | | | | | | [address] | | | | | | | | +--------+---------+ + + + | 11/24/ | Office | Cardiology | [place], | | | 2019 | Visit | | SINDHU Erickson [address] | | | | | | [place], | | | | | | [place] [address] | | | | | | [phone] | | | | | | | | +--------+---------+ + + + | 03/01/ | Office | Pulmonology | Mukul Clrak MD | | | 2020 | Visit | | [address] | | | | | | [place] | | | | | | [address] | | | | | | | | +--------+---------+ + + + documented as of this encounter Visit Diagnoses Not on filedocumented in this encounter"
--- OUTSIDE RECORDS SUMMARY | ~2019-09-27 | XMS | Encounter Summary ---
Demographics + + + | Address | [address] | | | [place] [address] | + + + | Home Phone [...] Team Providers + +------+ + | Care Relief Operator Name | Role | Phone | + +------+ + | Juan Cherry DO | PCP | | + +------+ + Encounter Details +--------+ + + + + | Date | Type | Department | Care Team | Description | +--------+ + + + + | 05/22/ | Orders Only | [facility] | Offenstein, | Obstructive sleep | | 2012 | | PULMONARY [address] | Loreta Alonso MD | apnea (adult) | | | | [place], | | (pediatric) (Primary | | | | [place] [address] | | Dx) | | | | [phone] | | | +--------+ + + + [...] [place] | | | | | | [address] | | | | | | | | +--------+---------+ + + + | 11/24/ | Office | Cardiology | [place], | | | 2019 | Visit | | SINDHU Erickson [address] | | | | | | [place], | | | | | | [place] [address] | | | | | | [phone] | | | | | | | | +--------+---------+ + + + | 03/01/ | Office | Pulmonology | Mukul Clark MD | | | 2020 | Visit | | [address] | | | | | | [place] | | | | | | [address] | | | | | | | | +--------+---------+ + + + documented as of this encounter Visit Diagnoses + + | Diagnosis | + + | Obstructive sleep apnea (adult) (pediatric) - Primary | + + documented in this encounter"
--- OUTSIDE RECORDS SUMMARY | ~2019-09-27 | XMS | Encounter Summary ---
Demographics + + + | Address | [address] | | | [place] [address] | + + + | Home Phone [...] Team Providers + +------+ + | Care Keno Attendant Name | Role | Phone | + +------+ + | Juan Cherry DO | PCP | | + +------+ + Reason for Visit + +--------+ + | Reason | Onset | Comments | | | Date | | + +--------+ + | Medication Refill | 04/15/ | wanted to know refill history. | | | 2013 | | + +--------+ + Encounter Details +--------+--------+ + + + | Date | Type | Department | Care Team | Description | +--------+--------+ + + + | 04/15/ | Refill | [facility] | Rajwinder Monzon, | Medication Refill | | 2013 | | PULMONARY [address] | Cert [place] | ( wanted to know | | | | [place], | | refill history.) | | | | [place] [address] | | | | | | [phone] | | | +--------+--------+ + + + [...] Telephone Encounter - Loreta London MD - 04/15/2013 4:59 PM PSTNotably, based on this, the patient has likely been taking her Advair infrequently since her return from [facility] and, and her Spiriva 50% of the time. Electronically signed by Loreta London MD at 0 04/15/2013 5:00 PM PSTTelephone Encounter - Rajwinder Monzon Cert MA - 04/15/2013 2:[facility]: 03/22; 12/25; 10/31; 09/21 Advair Diskus: 02/03; 08/10; 07/14; 06/06; 04/29 Albuterol: 03/18; 08/21; 08/15; 07/14 Spiriva: 04/10; 02/03; 12/25 documented in t his encounter Plan of [...] [place] | | | | | | [id number] | | | | | | | | +--------+---------+ + + + | 11/24/ | Office | Cardiology | [place], | | | 2019 | Visit | | SINDHU Erickson [address] | | | | | | [place] | | | | | | [place] [address] | | | | | | [phone] | | | | | | | | +--------+---------+ + + + | 03/01/ | Office | Pulmonology | Mukul Clark MD | | | 2020 | Visit | | [address] | | | | | | [place] | | | | | | [address] | | | | | | | | +--------+---------+ + + + documented as of this encounter Visit Diagnoses Not on filedocumented in this encounter"
--- OUTSIDE RECORDS SUMMARY | ~2019-09-27 | XMS | Encounter Summary ---
Demographics + + + | Address | [address] | | | [place] [address] | + + + | Home Phone [...] Providers + +------+ + | Care Manager Game Name | Role | Phone | + +------+ + PCP | Unavailable | + +------+ + Encounter Details +--------+ + + + + | Date | Type | Department | Care Team | Description | +--------+ + + + + | 10/06/ | [facility] | [facility] | | | | 2008 | Encounter | MED CTR LABORATORY | | | | | | [address] | | | | | | [place] | | | | | | [address] | | | | | | [phone] | | | +--------+ + + + [...] | | | | | | [place] [address] | | | | | | [phone] | | | | | | | | +--------+---------+ + + + | 03/01/ | Office | Pulmonology | Mukul Clark MD | | | 2020 | Visit | | [address] | | | | | | [place] | | | | | | [address] | | | | | | | | +--------+---------+ + + + documented as of this encounter Visit Diagnoses Not on filedocumented in this encounter"
--- OUTSIDE RECORDS SUMMARY | ~2019-09-27 | XMS | Encounter Summary ---
Demographics + + + | Address | [address] | | | [place] [address] | + + + | Home Phone [...] Team Providers + +------+ + | Care Search Director Name | Role | Phone | + +------+ + PCP | Unavailable | + +------+ + Encounter Details +--------+ + + + + | Date | Type | Department | Care Team | Description | +--------+ + + + + | 11/27/ | Hospital | [facility] | Ozzy Delcid, | | | 2009 - | Encounter | MED CTR OP REHAB | [address] | | | | | [address] [place] | [address] [place], | | | 12/24/ | | [place] [address] | [place] [address] | | | 2009 | | [phone] | [phone] | | | | | | | [...] | | | | | | [place] [address] | | | | | | [phone] | | | | | | | | +--------+---------+ + + + | 03/01/ | Office | Pulmonology | Mukul Clark MD | | | 2020 | Visit | | [address] | | | | | | [place] | | | | | | [address] | | | | | | | | +--------+---------+ + + + documented as of this encounter Visit Diagnoses Not on filedocumented in this encounter"
--- OUTSIDE RECORDS SUMMARY | ~2019-09-27 | XMS | Encounter Summary ---
Demographics + + + | Address | [address] | | | [place] [address] | + + + | Home Phone [...] Providers + +------+ + | Care Internal Audit Manager Name | Role | Phone | [...] [place] | | | | | [address] | [place] [address] | | | | | [phone] | [phone] | | | | | | | [...] | | | | | | [place] [address] | | | | | | [phone] | | | | | | | [...]
--- OUTSIDE RECORDS SUMMARY | ~2019-09-27 | XMS | Encounter Summary ---
Demographics + + + | Address | [address] | | | [place] [address] | + + + | Home Phone [...] Team Providers + +------+ + | Care Capital Project Engineer Name | Role | Phone | [...] | (obstructive | [address] | [place] | | | | | sleep | [place] | [place], | | | | | apnea) | [place], [place] | [place] [address] | | | | | Procedures | [id number] | Phone: | | | | | NE POLYSOM | Phone: | [phone] | | | | | 6/>YRS SLEEP | [phone] | Fax: | | | | | 4/> ADDL | Fax: | [phone] | | | | | ALESSIA ATTND | [phone] | | | | | | NE POLYSOM | | | | | | [...] + + | 08/03/ | Hospital | [facility] | Meghan Garcia MD | GARRY (obstructive | | 2019 - | Encounter | MED CTR SLEEP | [address] | sleep apnea) | | | | CENTER [address] | [place] | | | 08/04/ | | [place] | [address] | | | 2018 | | [address] | | | | | | [phone] | | | +--------+ + + + [...] | | | | | order to [facility]. | | | | | [...] | | | | | | | [facility]. | | | | [...] + | | | | 0 | 07/04/19 | | | HYDROcodone-acetamin | | | [...] documented as of this encounter Procedure Notes Meghan Garcia MD - 08/10/2018 9:50 AM PDTAssociated Order(s): SLEEP STUDY DIAGNOSTIC ONLY NO PAPPre-Procedure Diagnose(s): GARRY (obstructive sleep apnea)Post-Procedure Diag nose(s): GARRY (obstructive sleep apnea); CSA (central sleep apnea) Daisy Meier [facility] [place] [address] Polysomnogram Report on Rosario Malik performed on [...] years before she was switched to bilevel [id number]. I reviewed the notes from Dr Chris Alarcon in [place], [place].It indicates that patient had CPAP intolerance [...] the problem. Discharge summary from ER not es dated 2018 indicates that she had an [...] day for h er COPD through her unix consultant. We performed a CPAP titration study on April 28, 2018, to determine the appropriate setting and pressure and also to see if she really needed nocturnal supplemental oxygen. The titration study was satisfactory. CPAP was not tried as patient had previously showed C PAP intolerance. Bilevel-S was titrated up from 10/5 cm H2O to 19/15 cm H2O . Pressure of 1 3/8 cm H2O appeared to control obstructive sleep apnea in supine non-REM sleep. In REM slee p, patient started to have numbers of obstructive sleep apnea at pressure of 13/8 cm H2O, an d pressure was increased. Pressure of 16/11 cm H2O appeared to relatively control obstructi ve sleep apnea in supine REM sleep. Pressure continued to be increased for occasional snori ng and presumed obstructive events. It did not appear to make any positive difference, and made Cflow look even worse. Also, patient started to have paradoxical breathing as pressure was increased. Somewhere in the middle of the study patient woke up, calling with the urg ency, stated that "she woke like she did last year " panic with stroke like symptoms". Her S PO2 was above 90% and cflow was normal right before she woke up. I suspect higher pressures , mask leak, and anxiety caused these symptoms. Entire study time was performed on room air and supplemental oxygen was not added. Wake SPO2 was in the high 90%. Mean SpO2 was 96 %, n adir SpO2 was 91 %, and amount of total sleep time spent below SpO2 of 90% was 0 %. Transcut aneous CO2 ranged 35-37 mmHg during supine wake, and remained between 38 and 40 mmHg for ent shereen study time. Hypoventilation was not observed. Previous sleep study reports(external) m entioned that patient had hypoventilation during sleep, though CO2 was not measured in those sleep studies. Patient was restarted on bilevel-S at 15/11 cm H2O. We made sure that she was not on bilev el ST. His download in follow-up visit showed excessive leak and elevated AHI. Even after they excessive limb which was addressed by changing the mask and Gupta was much lower, [facility] AHI was 6 and 13. It was sometimes higher. Patient continued to have awakenings at [facility], and also excessive daytime sleepiness. Though one [...] signal excursion by 90% or greater of pre-event baselin e using an oronasal thermal sensor (diagnostic study), PAP device flow (titration study), or an alternative apnea sensor (diagnostic study); the duration of the 90% or greater drop in sensor signal is 10 seconds or longer. Obstructive Apnea: Event associated with continued or increased inspiratory effort throug hout the entire period of absent airflow. Central Apnea: Event associated with absent inspiratory effort throughout the entire kerry od of absent airflow. Mixed Apnea: Event associated with absent inspiratory effort in the initial portion of th e event followed by resumption of inspiratory effort during the second portion of the event. Hypopnea: Nasal pressure excursion drop by 30% or more from baseline, lasting at lease 10 seconds and 90% of the event's duration meets this amplitude criteria. This is associated wi th a 4% or greater desaturation from pre-baseline Respiratory Event Related Arousal: A sequence of breaths lasting 10 seconds or longer eddie acterized by increasing respiratory effort or by flattening of the inspiratory portion of th e nasal pressure (diagnostic study) or PAP device flow (titration study) waveform leading to arousal from sleep when the sequence of breaths does not meet criteria for an apnea or hypo pnea. REVELANT MEDICATIONS: Gabapentin, prednisone, tramadol, Ziprasidone. SUBJECTIVE: The patient rated sleep quality during sleep study as usual. Black Top Paver Operator note: Patient continues to struggle with mask seal at home. Tech noticed that t his might be due to lack of molars. In spite of leak she's been using bilevel every night. SLEEP ARCHITECTURE AND EEG: ? Lights out was 11:0 1 PM, and lights on was 05:45 AM. Patient was woken up shortly after 4 AM per her request so she could self administer her morning medications. She was surpri sed when she was informed that she had been sleeping. ? Total sleep time was 321.5 minutes. Sleep efficiency was 79.6% and was decreased. ? Sleep onset latency was 48.5 minutes and was increased. ? REM latency was 85.5 minutes and was within normal limits. ? Percent of time in stage N3 was 17.9% and was within normal limits. ? Percent of time in stage REM was 17.1 % and was within normal limits. ? Arousal Index for this diagnostic study was 24.3/hour and was mildly increased, with 18.7 respiratory arousals/hour and 5.6 spontaneous arousals/hour. RESPIRATORY: ? Respiratory disturbance index (RDI) was 29.9, consisting of total 11 hypopneas, 25 obstru ctive apneas, 0 mixed apneas, and 56 central apneas and 68 RERAs. AHI was 17.2 and was moder ately elevated. ? Patient spent 100% of total sleep time in supine position. ? Sleep disordered breathing was not significantly worsened in REM sleep with REM AHI of 26 .2 and REM RDI of 29.5. Non-REM AHI was 15.3 and non-REM RDI was 29.9. ? Mean SpO2 was 96 %, brennon SpO2 was 89%, and amount of total sleep time spent below SpO2 o f 88% was 0. 4% Oxygen Desaturation Index (VICTOR MANUEL) was 4.5 and was not elevated. ? Snoring was intermittent and mouth breathing noted as well. ? ETCO2 was not elevated. ? There were numbers of central apneas with occasional periodicity in supine NREM sleep. Po st-arousal central apneas noted. Interestingly, central apneas were occasionally associated with paradoxical breathing. Tor-Stone breathing was not observed. LIMB MOVEMENTS: ? Total sleep periodic limb movement index was [...] night, lack of physical activity, etc. Meghan Garcia MD Portions of this chart may have been created with [employer] voice recognition software. Occasi onal wrong-word or sound-alike substitutions may have occurred due to the inherent cárdenas itations of voice recognition software. Please read the chart carefully and recognize, using context, where these substitutions have occurred. documented in this enco unter Plan of [...] [place] | | | | | | [address] | | | | | | | | +--------+---------+ + + + | 11/24/ | Office | Cardiology | [place], | | | 2019 | Visit | | SINDHU Erickson [address] | | | | | | [place], | | | | | | [place] [address] | | | | | | [phone] | | | | | | | | +--------+---------+ + + + | 03/01/ | Office | Pulmonology | Mukul Clark MD | | | 2020 | Visit | | [address] | | | | | | [place] | | | | | | [address] | | | | | | | [...] Garcia | | | 08/16/2018 14:09 Daisy [facility] | | | [place] [address] Polysomnogram | | | Report on Rosario [...] from Dr. Alarcon | | | in [place], [place]. It indicates that patient had CPAP [...] Discharge summary from ER notes dated January 08, | | | 2017 indicates that she [...] her COPD through her | | | unix consultant. We performed a CPAP titration study [...] | | | during sleep study as usual.Black Top Paver Operator note: Patient continues to | | [...] this chart may have been created with [employer] | | | voice recognition software. Occasional [...] 4% Oxygen Desaturation | | |Index (VICTOR MANEUL) was 4.5 and was not elevated. | [...] this chart may have been created with [employer] voice | | |recognition software. Occasional wrong-word [...] PDT [facility] | | [place], [place] [address]Gvskyvdtqaozh Report on Rosario Daniels | [place] performed on August 03, 2018.PATIENT IDENTIFICATION:Rosario Malik [...] before she was switched to bilevel in 2016. I reviewed the | | notes from Dr. Alarcon in [place], [place]. It indicates that patient had | [...] the day for her COPD through her unix consultant.We performed a | | CPAP titration [...] quality during | | sleep study as usual.Black Top Paver Operator note: Patient continues to struggle with [...] | | will continue with bilevel-S at 15/11 and make sure the leak is controlled. Other issue | | that is contributing to her excessive daytime sleepiness is her sleep/wake pattern, long | | naps, insufficient sleep at night, lack of physical activity, etc. Meghan Garcia, | | MDPortions of this chart may have been created with [employer] voice recognition software. | | Occasional wrong-word [...]
--- OUTSIDE RECORDS SUMMARY | ~2019-09-27 | XMS | Encounter Summary ---
Demographics + + + | Address | [address] | | | [place] [address] | + + + | Home Phone [...] Team Providers + +------+ + | Care Principal Clerk Typist Name | Role | Phone | + [...] | | | | | pulmonary | [address] | [address] | | | | | disease, | [place], | [place] | | | | | unspecified | [place] [address] | [place], [place] | | | | | COPD type | Phone: | [address] | | | | | (HCC) | [phone] | Phone: | | | | | Pulmonary | Fax: | [phone] | | | | | emphysema, | [phone] | Fax: | | | | | unspecified | | [phone] | | | | | emphysema | | | | | | | type ([facility]) | | | +--------+ + + + + + Encounter Details +--------+---------+ + + + | Date | Type | Department | Care Team | Description | +--------+---------+ + + + | 05/28/ | Office | [facility] | Jared Mcdonough, | Chronic obstructive | | 2017 | Visit | MED CTR CARDIAC | [address] | pulmonary disease, | | | | REHABILITATION [address] | [place], | unspecified COPD | | | | [address] [place] | [place] [address] | type (HCC) (Primary | | | | [place] [address] | [phone] | Dx); Pulmonary | | | | [phone] | | emphysema, | | | | [...] this encounter Progress Notes Desean Chris - 05/28/2016 3:42 PM PDT [facility] CARDIAC REHABILITATION [address] [place] [address] Cardiac Rehab Date: 05/28/2016 Patient Information Patient Name: Rosario Malik Date [...] progress note. Electronically signed by: Desean Chris, 05/28/2016 15:42 Patient Name: Rosario Malik/: 1965/ documented in [...] [place] | | | | | | [address] | | | | | | | | +--------+---------+ + + + | 11/24/ | Office | Cardiology | [place] | | | 2019 | Visit | | SINDHU Erickson [address] | | | | | | [place] | | | | | | [place] [address] | | | | | | [phone] | | | | | | | | +--------+---------+ + + + | 03/01/ | Office | Pulmonology | Mukul Clark MD | | | 2020 | Visit | | [address] | | | | | | [place] | | | | | | [address] | | | | | | | | +--------+---------+ + + + documented as of this encounter Visit Diagnoses + + | Diagnosis | + + | Chronic obstructive pulmonary disease, unspecified COPD type (HCC) - Primary | + + | Pulmonary emphysema, unspecified emphysema type (HCC) | + + documented in this encounter"
--- OUTSIDE RECORDS SUMMARY | ~2019-09-27 | XMS | Encounter Summary ---
Demographics + + + | Address | [address] | | | [place] [address] | + + + | Home Phone [...] Team Providers + +------+ + | Care Java Architect Name | Role | Phone | + +------+ + | Juan Cherry DO | PCP | | + +------+ + Encounter Details +--------+ + + + + | Date | Type | Department | Care Team | Description | +--------+ + + + + | 09/09/ | Hospital | [facility] GENER[facility] IP | Conversion | Pain | | 2015 | Encounter | CONVERSION [address] | Transaction, | | | | | [address] | Provider Unknown | | | | | [place], [place] | [phone] | | | | | [address] | | | | | | [phone] | | | +--------+ + + + [...] | | | | | order to [facility]. | | | | | [...] | | | | send order to [facility] | | | | [...] [place] | | | | | | [address] | | | | | | | | +--------+---------+ + + + | 11/24/ | Office | Cardiology | [place], | | | 2019 | Visit | | SINDHU Erickson [address] | | | | | | [place] | | | | | | [place] [address] | | | | | | [phone] | | | | | | | | +--------+---------+ + + + | 03/01/ | Office | Pulmonology | Mukul Clark MD | | | 2020 | Visit | | [address] | | | | | | [place] | | | | | | [address] | | | | | | | [...]
--- OUTSIDE RECORDS SUMMARY | ~2019-09-27 | XMS | Encounter Summary ---
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 I had her work with a integration technician to ensure that she was fitting [...] month, sooner prn. Fifteen minutes were spent llax-lz-txom, wit h the majority of time spent [...] [place] | | | | | | [id number] | | | | | | | | +--------+---------+ + + + | 11/24/ | Office | Cardiology | [place], | | | 2019 | Visit | | SINDHU Erickson [address] | | | | | | [place], | | | | | | [place] [address] | | | | | | [phone] | | | | | | | [...]
--- OUTSIDE RECORDS SUMMARY | ~2019-09-27 | XMS | Encounter Summary ---
Demographics + + + | Address | [address] | | | [place] [address] | + + + | Home Phone [...] Team Providers + +------+ + | Care Parts Identification Technician Name | Role | Phone | + +------+ + | Juan Cherry DO | PCP | | + +------+ + Encounter Details +--------+ + + + + | Date | Type | Department | Care Team | Description | +--------+ + + + + | 09/09/ | Hospital | [facility] GENER[facility] IP | Conversion | Pain | | 2015 | Encounter | CONVERSION [address] | Transaction, | | | | | [address] | Provider Unknown | | | | | [place], [place] | [phone] | | | | | [address] | | | | | | [phone] | | | +--------+ + + + [...] | | | | | order to [facility]. | | | | | [...] | | | | send order to [facility] | | | | | | | [facility]. | | | | [...] | | | | | | ([facility]) | | | | | [...] | | | | | | ([facility]) | | | | | [...] [place] | | | | | | [address] | | | | | | | | +--------+---------+ + + + | 11/24/ | Office | Cardiology | [place], | | | 2019 | Visit | | SINDHU Erickson [address] | | | | | | [place] | | | | | | [place] [address] | | | | | | [phone] | | | | | | | | +--------+---------+ + + + | 03/01/ | Office | Pulmonology | Mukul Clark MD | | | 2020 | Visit | | [address] | | | | | | [place] | | | | | | [address] | | | | | | | [...]
--- OUTSIDE RECORDS SUMMARY | ~2019-09-27 | XMS | Encounter Summary ---
Demographics + + + | Address | [address] | | | [place] [address] | + + + | Home Phone [...] + + | Author | [facility] | | | and [place] | + + + | Organization | [facility] | | | and [...] Team Providers + +------+ + | Care Conference Assistant Name | Role | Phone | [...] | esophagitis | [address] | [place] | | | | | presence not | [place], [place] | [place], | | | | | specified | [address] | [place] [address] | | | | | Procedures | Phone: | Phone: | | | | | [place] Gastric | [phone] | [phone] | | | | | Emptying | Fax: | Fax: | | | | | | [phone] | [phone] | +--------+--------+ + + + + Encounter Details +--------+ + + + + | Date | Type | Department | Care Team | Description | +--------+ + + + + | 04/02/ | Hospital | [facility] | Dio Yun | | | 2017 | Encounter | MED CTR NUCLEAR | [address] | | | | | MEDICINE [address] | [place] [address] | | | | | [place], | [place], [place] | | | | | [place] [address] | [address] | | | | | [phone] | [phone] | | | | | | | [...] | | | | | order to [facility]. | | | | | [...] | | | | | | | [facility]. | | | | [...] | 0 | 10/13/19 | | | Elhgrycacl-CCFV-Ryrt | mouth as needed. | | | 16 | 7 | | -Cod [id number] MG | | | | | | [...] | | | | | | [place] [address] | | | | | | [phone] | | | | | | | | +--------+---------+ + + + | 03/01/ | Office | Pulmonology | Mukul Clark MD | | | 2020 | Visit | | [address] | | | | | | [place] | | | | | | [address] | | | | | | | [...] [place] Results In - 04/02/2016 11:38 AM [facility] NUCLEAR GASTRIC EMPTYING STUDY 04/02/2016 | | [...]
--- OUTSIDE RECORDS SUMMARY | ~2019-09-27 | XMS | Encounter Summary ---
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 None Scant / Thin White/clear Moderate Beige/ yellow Large / Thick Dark Green/Brown Copious / Plugs Hemoptysis juan carlos 0 LOC Alert, oriented, cooperative Disoriented, follows commands Obtunded, arousable, follo ws commands Obtunded, uncooperative, sedated Comatose 0 Oxygen Demand Room air Baseline 1-2 liters 3-6 liters >7 Liters Oxymizer to > 55% 60% or greater Total Severity Score (SS) Class 0-3 1 4-7 2 8-11 3 12-14 4 15+ 5 lan of Care - Sherrell North RN - 01/10/2018 8:13 AM PSTProblem: Patient Care Overview (Adult) Goal: Care Team Goals & Evaluation PROBLEM-RELATED GOALS: Pt will be free from falls by 01/11/18 Pt will have adequate pain management by 01/11/18 Patient will be modified independent with ambulation in the hallway by 01/12/2018 STRATEGY TO ACHIEVE GOALS: Round every hour and keep call light within reach Assess for pain throughout the shift use nonpharmacological and pharmacological interventio ns as needed Patient will participate in PT activities RESTRAINT-RELATED GOALS: STRATEGIES TO ACHIEVE RESTRAINT GOALS: Goal Evaluation: Rosario was A&O. Complained of generalized body pain. Tramadol given x2. Had sleep study last night. Slept well overnight. Ambulated in hallway with ASTRONOMY TEACHER last night. Vitals stable. lan of [facility] - Josh Ordonez RRT - 01/10/2018 2:04 AM PSTProblem: Patient Care Overview (Adult) Goal: Care Team Goals & Evaluation PROBLEM-RELATED GOALS: Pt will be free from falls by 01/11/18 Pt will have adequate pain management by 01/11/18 Patient will be modified independent with ambulation in the hallway by 01/12/2018 STRATEGY TO ACHIEVE GOALS: Round every hour and keep call light within reach Assess for pain throughout the shift use nonpharmacological and pharmacological interventio ns as needed Patient will participate in PT activities RESTRAINT-RELATED GOALS: STRATEGIES TO ACHIEVE RESTRAINT GOALS: Outcome: Unchanged Goal Evaluation: Rosario oxygen saturation is SpO2: 94 % on room air and a heart rate of 84. Breath sounds are clear, equal bilaterally Pt's respirations are unlabored, pattern regular, depth regular, no shortness of breath reported . lan of [facility] Eric Lopez RN - 01/09/2018 8:02 PM PSTProblem: Patient Care Overview (Adult) Goal: Care Team Goals & Evaluation PROBLEM-RELATED GOALS: Pt will be free from falls by 01/11/18 Pt will have adequate pain management by 01/11/18 Patient will be modified independent with ambulation in the hallway by 01/12/2018 STRATEGY TO ACHIEVE GOALS: Round every hour and keep call light within reach Assess for pain throughout the shift use nonpharmacological and pharmacological interventio ns as needed Patient will participate in PT activities RESTRAINT-RELATED GOALS: STRATEGIES TO ACHIEVE RESTRAINT GOALS: Goal Evaluation: Pt c/o pain at times during the shift, repositioning pt for comfort and administering prn pain meds as ordered. Up ambulating SBA this shift. Some lightheadedness and dizziness noted with ambulating. No visual disturbances reported at this time. No new neuro deficits noted, continues with right facial droop. Denies numbness and tingling. Voiding without difficulty . BM today. No falls at this time. lan of Care - Francisca Meza - 01/09/2018 4:29 PM PSTDischarge Planning: This Asst spoke with Rosario at her bedside regarding discharge plans. Rosario lives in [place] with her daughter Juana. She reports 4-5 steps to enter the home. Eight steps leading up and down insiide the split level home. Her bathroom has a tub s hower. Rosario reports she is independent in her ADL's. She drives. She uses 2L of home oxygen du ring the day. She also owns a portable oxygenator and a liquid air condenser. She has a cane she does not use. Her PCP is Dr Cherry and she uses [facility] pharmacy. Rosario does not anticipate any discharge needs and her daughter will transport her home w melvin stable for discharge. Dispo: Home with family support. Electronically signed by: Francisca Saldana 01/09/2018 16:35 lan of Care - Celeste Tong OT - 01/09/2018 11:35 AM PSTFormatting of this note might be different from the or iginal. Problem: Patient Care Overview (Adult) Goal: Care Team Goals & Evaluation PROBLEM-RELATED GOALS: Pt will be free from falls by 01/11/18 Pt will have adequate pain management by 01/11/18 Patient will be modified independent with ambulation in the hallway by 01/12/2018 1. Rosario will maintain her home O2 regimen. 2. Rosario will maintain her home GARRY regimen. 3. Rosario will maintain her home respiratory medication regimen from formulary substituti on as required. STRATEGY TO ACHIEVE GOALS: Round every hour and keep call light within reach Assess for pain throughout the shift use nonpharmacological and pharmacological interventio ns as needed Patient will participate in PT activities - Rosario uses 3LPM O2 at home. - Rosario will use her home CPAP device for sleep. - Rosario has scheduled albuterol and budesonide BID txs and albuterol Q4H PRN as needed f or SOB/wheezing. RESTRAINT-RELATED GOALS: STRATEGIES TO ACHIEVE RESTRAINT GOALS: Occupational Therapy Plan of Care Initial Evaluation, Treatment Note Summary: Rosario presents to occupational therapy with decreased ADL and IADL indepenen ce due to generalized weakness with syncopal episode. Objective exam reveals impairments wi th aerobic capacity/endurance, ventilation and respiration/gas exchange, ergonomics and body mechanics, gait, locomotion, and balance, muscle performance, decreased ADL and self care t ransfer independence due to dizziness. Pt engaged in toileting, grooming and evaluation. . Pt reported that her dizziness increased with activity. Even with increased activity in s tanding, she c/o increased dizziness.Barriers to discharge and functional limitations includ e decreased functional transfers, decreased ability to perform BADLs, not yet able to mobili ze at level safe for home discharge and medical status. Rosario will benefit from therapeutic intervention to address impairments and increase saf ety and independence with activities necessary for safe discharge. Refer below for specific details regarding functional levels. Precautions/Limitations: falls Precaution Comment: fall risk Left Lower Extremity Weight-Bearing: full weight-bearing Right Lower Extremity Weight-Bearing: full weight-bearing Previous Level of Function: Transferring: independent Ambulation: independent Toileting: independent Bathing: independent Dressing: independent Eating: independent Communication: understands/communicates without difficulty Swallowin-->swallows foods/liquids without difficulty Equipment Currently Used at Home: none Prior Functional Level Comment: independent in all ADL's, living with adult children, has a cane but doesn't use it, on 3l O2 chronic Potential available assistance at discharge: Significant Relationships: child Primary Roles/Responsibilities: parent Living Environment/Accessibility: Lives With: child(markie), adult Living Arrangements: house Home Accessibility: no concerns Number of Stairs to Enter Home: 5 Number of Stairs Within Home: 8 Financial Concerns: none Transportation Available: car Patient/Family s Goals: return home with adult child Rehabilitation potential: good, to achieve stated therapy goals Occupational Therapy Discharge Recommendations are: Recommended discharge disposition: home with assist Post discharge occupational therapy recommendation: home health Equipment Recommendations: (tbd) Planned Interventions:ADL retraining, transfer training Recommended Frequency: 3 times/wk Patient Status/Goals: Reflects last filed data and may be from multiple contributors. ADLs LB Dressing, Level of [facility]: supervised LB Dressing Assess/Train, Position: sitting, standing pt needed supervision due to dizziness when sitting and standing that did not resolve with activity Toileting, Level of [facility] [place] [facility]: supervised Assistive Device: none Toileting Assess/Train, Position: sitting, standing supervised for safety due to increased dizziness when up Grooming, Level of [facility] [place] [facility]: supervised Assistive Device: none Grooming Assess/Train, Position: standing Bed Mobility Assistive Device: bed rails Scoot/Bridge, Level of [facility]: supervised Supine to Sit, Level of [facility]: supervised Sit to Supine, Level of [facility]: supervised Safety Issues: other (see comments) (complained of dizziness going from sit to stand. Did not resolve with activity in standing) Impairments: strength decreased Transfers Bed-Chair, Level of [facility]: supervised Chair-Bed, Level of [facility]: supervised Zsd-[id number]-Vag, Assistive Device: none Sit-Stand, Level of [facility]: supervised Stand-Sit, Level of [facility]: supervised [id number]-[id number]-Vql, Assistive Device: none Toilet, Level of [facility]: supervised Toilet, Assistive Device: none Safety Issues: other (see comments) (dizziness with standing activity) Impairments: other (see comments) (dizziness) ROM L UE ROM: WFL R UE ROM: WFL L LE ROM: WFL R LE ROM: WFL Strength L UE Strength: noted decreased strength in shoulders - 4/5 R UE Strength: noted decreased strength in shoulders - 4/5 L LE Strength: noted decreased strength in hip flex and ext - 4/5 R LE Strength: noted decreased strength in hip flex and ext - 4/5 Medicare Functional Limitation Reporting Current Status G8987 Self care functional limitation, current status, at therapy episode outset and at reporting intervals CK At least 40 percent but less than 60 percent impaired, limited or restricted Goal G8988 Self care functional limitation, projected goal status CJ At least 20 percent b ut less than 40 percent impaired, limited or restricted Outcome Measures Tools: Clinical judgment Justification of Severity Rating: Due to the instability from dizziness noted in evaluatio n, she is significantly impaired OT Goal Review Date Most Recent Value STG Review Date 01/16/18 at 01/09/2018 1314 UB Dressing Goal Most Recent Value STG Status new at 01/09/[address] [place] [facility] Level modified independent at 01/09/2018 1314 STG Adaptive Equipment none at 01/09/2018 1314 LB Dressing Goal Most Recent Value STG Status new at 01/09/[address] [facility] Level modified independent at 01/09/2018 1314 STG Adaptive Equipment none at 01/09/2018 1314 Tub/Shower Transfer Goal Most Recent Value Tub/Shower Type tub/shower combo at 01/09/2018 1314 STG Status new at 01/09/[address] [place] [facility] Level modified independent at 01/09/2018 1314 Electronically signed by: Sonia Tong OT, 01/10/2018 18:19 lan of Care - Chetan virk, Parvin Honeycutt RN - 01/09/2018 3:51 AM PSTProblem: Patient Care Overview (Adult) Goal: Care Team Goals & Evaluation PROBLEM-RELATED GOALS: STRATEGY TO ACHIEVE GOALS: RESTRAINT-RELATED GOALS: STRATEGIES TO ACHIEVE RESTRAINT GOALS: Outcome: Improving Goal Evaluation: Rosario had no falls this shift. C/o dizziness and shakiness, especially after activity. Resolves after several minutes of rest and lowering HOB. Denied pain. VS have been stable th is shift. On Q4 neuro checks. Given norco x1 for generalized pain with relief. documented in this encounter Plan of Treatment [...] [place] | | | | | | [address] | | | | | | | | +--------+---------+ + + + | 11/24/ | Office | Cardiology | Flores, | | | 2019 | Visit | | SINDHU Erickson [address] | | | | | [place], | | | | | | [place] [address] | | | | | | [phone] | | | | | | | | +--------+---------+ + + + | 03/01/ | Office | Pulmonology | Mukul Clark MD | | | 2020 | Visit | | [address] | | | | | | [place] | | | | | | [phone] | | | | | | | [...] | | | 01/08/ | | | 2017 | | | 9:14 | | | [...] W?MRN: | | | | | | [id number] | | | [id number] | | | his | | | [...] | | | 120 | | | JUAN | | | | | | OLSWAN | | | HEATHER 4 | | | 20 | | | 2018- | | | 0-22 | | | [...] | | | 120 | | | JUAN | | | | | | OLSWAN | | | HEATHER 4 | | | 20 | | | 2018-0 | | | 9-01 | | | TRAMAD | | | OL HCL | | | 50 MG | | | | | | TABLET | | | 120 | | | JUAN | | | | | | OLSWAN | | | HEATHER 4 | | | 20 | | | 2018-0 | | | 8-29 | | | DIAZEP | | | AM 10 | | | MG | | | TABLET | | | 1 | | | JUAN | | | | | | OLSWAN | | | HEATHER 4 | | | 0 | | | 2018-0 | | | 8-02 | | | TRAMAD | | | OL HCL | | | 50 MG | | | | | | TABLET | | | 120 | | | JUAN | | | | | | OLSWAN | | | HEATHER 4 | | | 20 | | | 2018-0 | | | 7-03 | | | TRAMAD | | | OL HCL | | | 50 MG | | | | | | TABLET | | | 120 | | | JUAN | | | | | | OLSWAN [...] | | | 120 | | | JUAN | | | | | | OLSWAN [...] | | | Dates | | | JUAN | | | | | | OLSWAN [...] | | | | | | n [place] | | | | | + +---------+ [...] ST. | [address] | [place] | [phone] | | [facility] | | [address] | | | - LABORATORY | | [...] [address] | [place] | [phone] | | [facility] | | [address] | | | - LABORATORY | | [...] + | [facility] | [address] | [place] | [phone] | | [facility] | | [address] | | | - LABORATORY | | [...] | | | POC | | | [facility] | | | | | | [...] + | [facility] | [address] | [place] | [phone] | | [facility] | | [address] | | | - LABORATORY | | [...] + + | Performing | Address | City/State/[facility] | Phone Number | | Organization | | | | + + + + + | [facility] | [address] | [place] | [phone] | | [facility] | | [address] | | | - LABORATORY | | [...] [address] | [place] | [phone] | | [facility] | | [address] | | | - LABORATORY | | [...] + | [facility] | [address] | [place] | [phone] | | [facility] | | [address] | | | - LABORATORY | | [...] + + | Performed at: 01 - [employer] [address] [place] [address], | REFERENCE LAB | | [place], [place] [id number] [employer] Machinery Or Equipment Installer: Naomie Evans, Phone: | ARACELIS - MARCELLE | | [phone] | | + + + + + + + + | Performing | Address | City/State/Zipcode | Phone Number | | Organization | | | | + + + + + | REFERENCE LAB | [address] | [place], [place] | [phone] | | [facility] | Drive [facility] | [address] | | + + + + + [...] | | | | | | [employer] | | | | | [...] [address] | [place] | [phone] | | [facility] | | [address] | | | - LABORATORY | | | | + + + + + Magnesium (01/09/2018 5:36 AM PST) + +-------+ + + + | Component | Value | Ref Range | Performed | Pathologist | | | | | At | Signature | + +-------+ + + + | Magnesium | 2.3 | 1.8 - 2.5 mg/dL | [facility] | | | | | | [facility] | | | | | | MEDICAL | | | | | | CENTER - | | | | | | LABORATORY | | + +-------+ + + + + + | Specimen | + + | Blood | + + + + + + + | Performing | Address | City/State/[facility] | Phone Number | | Organization | | | | + + + + + | [facility] | [address] | [place] | [phone] | | [facility] | | [address] | | | - LABORATORY | | | | + + + + + CBC no Differential (01/09/2018 5:36 AM PST) + + + + + + | Component | Value | Ref Range | Performed | Pathologist | | | | | At | Signature | + + + + + + | White Blood | 8.4 | 4.0 - 11.0 K/uL | [facility] | | | Cells | | | [facility] | | | | | | MEDICAL | | | | | | CENTER - | | | | | | LABORATORY | | + + + + + + | Red Blood | 4.58 | 3.70 - 5.20 | [...] | | | | | g/dL | . [facility] | | | | [...] + | [facility] | [address] | [place] | [phone] | | [facility] | | [address] | | | - LABORATORY | | [...] (H) | 70 - 109 mg/dL | [facility] | | | | | [...] mL/min/1.73m2 | [facility] | | | [facility] | RATE,ESTIMATED | | MEDICAL | | | | mL/min/1.34z2Dkga than | | CENTER - | | [...] ST. | [address] | [place], [place] | [phone] | | [facility] | | [address] | | | - LABORATORY | | [...] [address] | [place] | [phone] | | [facility] | | [address] | | | - LABORATORY | | [...] | | | | | | [employer] | | | | | [...] [address] | [place] | [phone] | | [facility] | | [address] | | | - LABORATORY | | [...] + | [facility] | [address] | [place] | [phone] | | [facility] | | [address] | | | - LABORATORY | | [...] [address] | [place] | [phone] | | [facility] | | [address] | | | - LABORATORY | | [...] HISTORY: transient loss of speech, evaluation cva.COMPARISON: 03/24/2016PROTOCOL: | | Sagittal T1, axial T2, axial [...] to be confirmed by conventional methods | [facility] | | | [facility] | | | [facility] | | | - LABORATORY | + + + + + + + + | Performing | Address | City/State/Zipcode | Phone Number | | Organization | | | | + + + + + | [facility] | [address] | [place] | [phone] | | [facility] | | [address] | | | - LABORATORY | | [...] + | [facility] | [address] | [place] | [phone] | | [facility] | | [address] | | | - LABORATORY | | | | + + + + + Troponin I (2018 1:06 PM PST) + + + + + + | Component | Value | Ref Range | Performed | Pathologist | | | | | At | Signature | + + + + + + | Troponin I | 0.08 (H)Comment: | <0.06 ng/mL | [facility] | | | | Reference | | [...] | | | | | | [employer] | | | | | [...] [address] | [place] | [phone] | | [facility] | | [address] | | | - LABORATORY | | [...] + | [facility] | [address] | [place] | [phone] | | [facility] | | [address] | | | - LABORATORY | | [...] | | | (AA) | | [facility] | | | | | | MEDICAL | | | | | | CENTER - | | | | | | LABORATORY | | + + + + + + | Culture | Micrococcus | | [facility] | | | | speciesComment: Probable | | [facility] | | | | contaminant | | [...] [address] | [place] | [phone] | | [facility] | | [address] | | | - LABORATORY | | [...] | | | (AA) | | [facility] | | | | | | MEDICAL | | | | | | CENTER - | | | | | | LABORATORY | | + + + + + + | Culture | Staphylococcus | | [facility] | | | | epidermidis | | [facility] | | | [...] + | [facility] | [address] | [place] | [phone] | | [facility] | | [address] | | | - LABORATORY | | [...] | third generation TSH | uIU/mL | [facility] | | | | test. | [...] ST. | [address] | [place] | [phone] | | [facility] | | [address] | | | - LABORATORY | | [...] [address] | [place] | [phone] | | [facility] | | [address] | | | - LABORATORY | | | | + + + + + Urinalysis With Microscopic (2018 11:21 AM PST) + + + + + + | Component | Value | Ref Range | Performed | Pathologist | | | | | At | Signature | + + + + + + | Color, | Straw | Light Yellow, | [facility] | | | Urine | | Yellow, Straw | [facility] | | | | | | MEDICAL | | | | | | CENTER - | | | | | | LABORATORY | | + + + + + + | Clarity, | Clear | Clear | [facility] | [...] - 1.030 | [facility] | | | [place], | | | [facility] | | | Urine | | | [...] | | Cells, | | | [facility] | | | Urine | | | MEDICAL | | | | | | CENTER - | | | | | | LABORATORY | | + + + + + + | Red Blood | 0-2 | 0 - 2 /HPF | [facility] | | | Cells, | | | [facility] | | | Urine | | | MEDICAL | | | | | | CENTER - | | | | | | LABORATORY | | + + + + + + | Squamous | 2-5 (A) | 0 - 2 /LPF | [facility] | | | Epithelial | | | [facility] | | | Cells, | | | [...] + + + + + + | Hyaline | 0-2 | 0 - 2 /LPF | [facility] | | | Casts, | | | [facility] | | | Urine | | [...] [address] | [place] | [phone] | | [facility] | | [address] | | | - LABORATORY | | [...] mediastinal | | | lymphadenopathy, within the gssvh-we-knnp. Stable 7 mm nodule in | | [...] vocal cord nodularity. Nomediastinal lymphadenopathy, within the aqwhn-vt-xgoy. Stable | | 7 mm nodule inthe right apex. Bullous changes in the left apex. Small blebs in the | | rightapex. No suspicious lytic or blastic bone lesions. Evidence of a healedsternal | | fracture. There appears to be fusion of the articular pillars at thelevel | | T3-[id number] -No CT evidence for an acute intracranial [...] nodularity. No | |mediastinal lymphadenopathy, within the qpquq-ta-zpcf. Stable 7 mm nodule in | |the [...] XR Chest AP Portable (2018 10:06 AM [facility]) + + | Specimen | + + [...] + | [facility] | [address] | [place] | [phone] | | [facility] | | [address] | | | - LABORATORY | | | | + + + + + B Type Natriuretic Peptide (2018 10:01 AM PST) + +-------+ + + + | Component | Value | Ref Range | Performed | Pathologist | | | | | At | Signature | + +-------+ + + + | BNP | 45 | <100 pg/mL | [facility] | | | | | [...] + | [facility] | [address] | [place] | [phone] | | [facility] | | [address] | | | - LABORATORY | | [...] ST. | [address] | [place] | [phone] | | [facility] | | [address] | | | - LABORATORY | | [...] [address] | [place] | [phone] | | [facility] | | [address] | | | - LABORATORY | | [...] | | | | | | [employer] | | | | | [...] [address] | [place] | [phone] | | [facility] | | [address] | | | - LABORATORY | | [...] | 0.93 | 0.60 - 1.30 | [facility] | | | | | mg/dL | [facility] | | | | | | MEDICAL | | | | | | CENTER - | | | | | | LABORATORY | | + + + + + + | eGFR, | >60Comment: GLOMERULAR | >=60 | [facility] | | | non- | FILTRATION | mL/min/1.73m2 | [facility] | | | [facility] | RATE,ESTIMATED | | MEDICAL | | | | mL/min/1.60f3Rqqx than | | CENTER - | | [...] (L) | 3.2 - 5.0 g/dL | [facility] [...] | ine Ratio | | | [facility] | | [...] [address] | [place] | [phone] | | [facility] | | [address] | | | - LABORATORY | | | | + + + + + CBC with Differential (2018 10:01 AM PST) + + + + + + | Component | Value | Ref Range | Performed | Pathologist | | | | | At | Signature | + + + + + + | White Blood | 11.5 (H) | 4.0 - 11.0 K/uL | [facility] | | | Cells | | | [facility] | | | | | | MEDICAL | | | | | | CENTER - | | | | | | LABORATORY | | + + + + + + | Red Blood | 4.47 | 3.70 - 5.20 | [...] [facility] | | | | | | [facility] | | | | | | MEDICAL | | | | | | CENTER - | | | | | | LABORATORY | | + + + + + + | % Immature | 0.4 | 0.0 - 0.4 % | [facility] | | | Granulocyte | | | [facility] | | | s | | | [...] [address] | [place] | [phone] | | [facility] | | [address] | | | - LABORATORY | | [...] [address] | [place] | [phone] | | [facility] | | [address] | | | - LABORATORY | | [...] | | | | RAFA WELLS MD ([id number]) | | | | | | on [...] Diagnosis | + + | Generalized weakness - Primary Other malaise and fatigue | + + | Lightheadedness Dizziness and giddiness | + + | Fall, initial encounter | + + | Paroxysmal atrial tachycardia (HCC) Paroxysmal supraventricular tachycardia | + + | Chronic obstructive pulmonary disease, unspecified COPD type (HCC) | + + | Gastroesophageal reflux disease without esophagitis Esophageal reflux | + + | Hypothyroidism, unspecified type | + + | GARRY (obstructive sleep apnea) Obstructive sleep apnea (adult) (pediatric) | + + | Interstitial cystitis (chronic) without hematuria | + + | GERD (gastroesophageal reflux disease) Esophageal reflux | + + | 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 | + + | Central sleep apnea [...] Shortness of Breath, | | | Starting [facility] 01/08/18 at 1705 | | + +---+ [...] | | | | | dose on [facility] 01/08/18 at 1500 | | | [...] Low | | | Blood Sugar, Starting [facility] | | | 01/08/18 at 1444 | | + +---+ | | | + +---+ + +-------+ +---------+---+---+ | digoxin (LANOXIN) tablet 125 | Given | 01/11/20 | 125 mcg | | | | mcg 125 mcg, Oral, DAILY, First | | 18 8:19 | | | | | dose on [facility] 01/08/18 at 1450 | | AM PST [...] | | | | | Anxiety, Starting [facility] 01/08/18 at | | | | [...] | | | | CT Scan, Starting [facility] 01/08/18 | | | | | [...] | | | | | dose on [facility] 01/08/18 at 1900, | | | | [...] | | | | First dose on 01/09/18 at | | | | | | [...] Units | | | | 500,000 Units, Swish & Swallow, | | AM PST | | | | | 4 TIMES DAILY, First dose (after | | | | | | | last modification) on Fri | | | | | | | 01/08/18 at 2100, Ashok garcia., | | | | | | | [...] | | dose on Carey 01/08/18 at 1450 | | AM PST [...] First dose on Fri01/08/18 at | | PM PST | | [...] | | | medication. Thank you!, Bishop Allen | | | | | | | Joe [facility] 01/09/2018 15:38, , , | | [...] | | | | | Migraine, Starting [facility] 01/08/18 | | AM PST | | [...] | | | | | Pain, Starting 01/09/18 at | | AM PST | | [...] | | | | First dose on [facility] 01/08/18 at | | AM PST | | [...]
--- OUTSIDE RECORDS SUMMARY | ~2019-09-27 | XMS | Encounter Summary ---
Demographics + + + | Address | [address] | | | [place] [address] | + + + | Home Phone [...] Team Providers + +------+ + | Care Drier Feeder Name | Role | Phone | + +------+ + | Juan Cherry DO | PCP | | + +------+ + Encounter Details +--------+ + + + + | Date | Type | Department | Care Team | Description | +--------+ + + + + | 02/08/ | Abstract | [facility] | [place], | | | 2013 | | CARDIOLOGY [address] | SINDHU Erickson [address] | | | | | [place], | [place], | | | | | [place] [address] | [place] [address] | | | | | [phone] | [phone] | | | | | | | [...] [place] | | | | | | [address] | | | | | | | | +--------+---------+ + + + | 11/24/ | Office | Cardiology | Flores, | | | 2019 | Visit | | SINDHU Erickson [address] | | | | | | [place] | | | | | | [place] [address] | | | | | | [phone] | | | | | | | | +--------+---------+ + + + | 03/01/ | Office | Pulmonology | Mukul Clark MD | | | 2020 | Visit | | [address] | | | | | | [place] | | | | | | [address] | | | | | | | | +--------+---------+ + + + documented as of this encounter Visit Diagnoses Not on filedocumented in this encounter"
--- OUTSIDE RECORDS SUMMARY | ~2019-09-27 | XMS | Encounter Summary ---
Demographics + + + | Address | [address] | | | [place] [address] | + + + | Home Phone [...] Team Providers + +------+ + | Care Unix Analyst Name | Role | Phone | + +------+ + PCP | Unavailable | + +------+ + Encounter Details +--------+ + + + + | Date | Type | Department | Care Team | Description | +--------+ + + + + | 02/08/ | Hospital | [facility] | Deniz Alexi Kim, | | | 2009 | Encounter | [facility] | [address] | | | | | [place] [address] | [place] | | | | | [place] | [address] | | | | | [address] | | | | | | [phone] | | | +--------+ + + + [...] [place] | | | | | | [address] | | | | | | | | +--------+---------+ + + + | 11/24/ | Office | Cardiology | Flores, | | | 2019 | Visit | | SINDHU Erickson [address] | | | | | | [place], | | | | | | [place] [address] | | | | | | [phone] | | | | | | | | +--------+---------+ + + + | 03/01/ | Office | Pulmonology | Mukul Clark MD | | | 2020 | Visit | | [address] | | | | | | [place] | | | | | | [address] | | | | | | | | +--------+---------+ + + + documented as of this encounter Visit Diagnoses Not on filedocumented in this encounter"
--- OUTSIDE RECORDS SUMMARY | ~2019-09-27 | XMS | Encounter Summary ---
Demographics + + + | Address | [address] | | | [place] [address] | + + + | Home Phone [...] Team Providers + +------+ + | Care Toe Trimmer Name | Role | Phone | + +------+ + | Juan Cherry DO | PCP | | + +------+ + Reason for Visit +--------+--------+ + | Reason | Onset | Comments | | | Date | | +--------+--------+ + | Other | 03/01/ | having pain after heart cath | | | 2014 | | +--------+--------+ + Encounter Details +--------+ + + + + | Date | Type | Department | Care Team | Description | +--------+ + + + + | 03/01/ | Telephone | [facility] | Jared Mcdonough, | Other (having pain | | 2014 | | CARDIOLOGY [address] | MD [address] | after heart cath) | | | | [place], | [facility] | | | | [place] [address] | [place] [address] | | | | | [phone] | [phone] | | | | | | | [...] this encounter Miscellaneous Notes Telephone Encounter - Nilda Escalona RN - 03/01/2014 3:33 PM PSTFredericketchen called to repo rt that her groin site is hurting after heart cath yesterday. She is not having any swellin g or bleeding. She is walking a bit but not much. She is encouraged to use tylenol and wal k a bit more. She will call tomorrow if the pain does not improve ......................... ..................Nilda Escalona RN on 03/01/2014 at 15:35 documented in this encounter Plan of Treatment [...] | | | | | | [place] [address] | | | | | | [phone] | | | | | | | | +--------+---------+ + + + | 03/01/ | Office | Pulmonology | Mukul Clark MD | | | 2020 | Visit | | [address] | | | | | | [place] | | | | | | [address] | | | | | | | | +--------+---------+ + + + documented as of this encounter Visit Diagnoses Not on filedocumented in this encounter"
--- OUTSIDE RECORDS SUMMARY | ~2019-09-27 | XMS | Encounter Summary ---
Demographics + + + | Address | [address] | | | [place] [address] | + + + | Home Phone [...] Team Providers + +------+ + | Care Sluice Tender Name | Role | Phone | + +------+ + | Juan Cherry DO | PCP | | + +------+ + Reason for Visit + +--------+ + | Reason | Onset | Comments | | | Date | | + +--------+ + | Medication Refill | 03/29/ | | | | 2015 | | + +--------+ + Encounter Details +--------+--------+ + + + | Date | Type | Department | Care Team | Description | +--------+--------+ + + + | 03/29/ | Refill | [facility] [place] | Kevin Sandoval, | Medication Refill | | 2014 | | PULMONARY [address] | MD [address] | | | | | [place], | [place], [place] | | | | | [place] [address] | [address] | | | | | [phone] | | | +--------+--------+ + + + [...] [place] | | | | | | [address] | | | | | | | | +--------+---------+ + + + | 11/24/ | Office | Cardiology | Flores, | | | 2019 | Visit | | SINDHU Erickson [address] | | | | | | [place], | | | | | | [place] [address] | | | | | | [phone] | | | | | | | | +--------+---------+ + + + | 03/01/ | Office | Pulmonology | Mukul Clark MD | | | 2020 | Visit | | [address] | | | | | | [place] | | | | | | [address] | | | | | | | | +--------+---------+ + + + documented as of this encounter Visit Diagnoses Not on filedocumented in this encounter"
--- OUTSIDE RECORDS SUMMARY | ~2019-09-27 | XMS | Encounter Summary ---
Demographics + + + | Address | [address] | | | [place] [address] | + + + | Home Phone [...] Team Providers + +------+ + | Care Group Director Experience Name | Role | Phone | + [...] [place], | | | | | | [place] [address] | | | | | | [phone] | | | +--------+ + + + [...] Speech Pathologist - 05/30/2016 1:32 PM [facility] [address] [place] [address] Cancellation/No Show Date: 05/30/2016 Patient Information Patient Name: Rosario Malik Date of : 1965 Age: 51 y.o. Reason for missed visit: Cancellation- NO wheel press clerk Phone call placed: yes - pt called [...] | | 2019 | Visit | | [address] | | | | | | [place] | | | | | | [place] [address] | | | | | | [phone] | | | | | | | [...]
--- OUTSIDE RECORDS SUMMARY | ~2019-09-27 | XMS | Encounter Summary ---
Demographics + + + | Address | [address] | | | [place] [address] | + + + | Home Phone [...] Team Providers + +------+ + | Care Him Clerk Name | Role | Phone | [...] Description | +--------+---------+ + + + | 04/03/ | Office | [facility] | [place], | Abnormal stress test | | 2017 | Visit | CARDIOLOGY [address] | SINDHU Erickson [address] | (Primary Dx); | | | | [place], | [place], | Paroxysmal atrial | | | | [place] [address] | [place] [address] | tachycardia (HCC) | | | | [phone] | [phone] | | | | | | | [...] + + + | Blood Pressure | 118/72 | 04/03/2016 7:33 AM | | | | | PST | | + + + + + | Pulse | 72 | 04/03/2016 7:33 AM | | | | | PST | | + + + + + | Temperature | - | - | | + + + + + | Respiratory Rate | 14 | 04/03/2016 7:33 AM | | | | | PST | | + + + + + | Oxygen Saturation | - | - | | + + + + + | Inhaled Oxygen | - | - | | | Concentration | | | | + + + + + | Weight | 81.6 kg (180 lb) | 04/03/2016 7:33 AM | | | | | PST | | + + + + + | Height | 157.5 cm (5' 2") | 04/03/2016 7:33 AM | | | | | PST | | + + + + + | Body Mass Index | 32.92 | 04/03/2016 7:33 AM | | | | | PST [...] encounter Progress Notes Georgina Tanner ARNP - 04/03/2016 7:23 AM PSTFormatting of this note might be differen t from the original. PATIENT NAME: Rosario Malik : 1965: AGE: 51 y.o. PRIMARY CARE: Juan Cherry DO OUTPATIENT FOLLOW UP VISIT Date of Service: 04/03/2016 HISTORY OF PRESENT ILLNESS: Rosario Malik is a 51 y.o. female with a history of non-cardiac chest pain, inapprop riate atrial tachycardia, paroxysmal atrial tachycardia with palpitations, emphysema, hypoth yroidism obstructive sleep apnea and nocturnal hypoxemia and bipolar disorder. She is being seen today for follow up chest pain, paroxysmal atrial tachycardia, palpitations, GARRY. She was last seen 09/26/2015 at which time go follow up with sleep apnea and follow up in 6 months. Since that time, she has been doing well. She felt 2 weeks ago and hurt her self b ut is now doing better. She has had a fair energy level. She has not been very active. Margi addiy after her concussion she has had to be resting and in bed for a couple of weeks. She enjoys watches TV and take care of her animals in her spare time. She has not had any chest pain or discomfort at rest or with exertion. She has not noticed shortness of breath. She continues using 2.5 - 3 lt by naso canula. She has not had any lightheadedness or dizziness . She has not noticed palpitations. She only had 1 episode that lasted 2 hours and resolved on it's own. She has noticed mild swelling at ankles by the end of the day that is resolve d in the morning, which has been stable for her. She sleeps on 1 pillow at night without an y shortness of breath. She sleeps with BiPAP machine in place nightly. MEDICAL, SURGICAL, AND PERSONAL HISTORY Past Medical, [...] test Syncope Interstitial cystitis (chronic) without hematuria CURRENT MEDICATIONS Current Outpatient Prescriptions Medication Sig Dispense Refill albuterol (PROAIR HFA) 90 mcg/puff inhaler Inhale 2 puffs into the lungs every 6 hours as needed for Wheezing or Shortness of Breath. 1 Inhaler 5 albuterol-ipratropium (DUONEB) 2.5-0.5 mg/3 mL SOLN Take 3 mLs by nebulization every 4 hours as needed. 360 mL 5 Jgfdftyuqc-NUHR-Bvkm-Cod 28-557-20-30 MG CAPS Take 1 capsule by mouth [...] months. Please send order to [facility]. 1 each 0 Respiratory Therapy Supplies MISC Change CPAP back to 11-14 cm H2O. All necessary suppl ies. No oxygen bleed in. Diagnosis Code(s)327.23. Length of Need: Lifetime. Please send orde r to [facility]. This is not a new order, just a change in settings. 1 each 99 roflumilast (DALIRESP) 500 mcg tablet Take 1 tablet by mouth Daily. 30 tablet 3 traMADol (ULTRAM) 50 mg tablet Take 50 mg by mouth 4 times daily. 0 traZODone (DESYREL) 50 mg tablet 1/2 to [...] loss and d iaphoresis. HENT: Negative for congestion, hearing loss, nosebleeds and tinnitus. Dental Problems = No Eyes: Negative for blurred vision and double vision. Respiratory: Positive for shortness of breath. Cardiovascular: Negative for chest pain, palpitations and leg swelling. Gastrointestinal: Positive for nausea. Negative for vomiting, diarrhea, constipation and bl ood in stool. Genitourinary: Negative for dysuria, urgency, frequency and hematuria. Musculoskeletal: Positive for falls. Negative for myalgias, back pain, joint pain and neck pain. Gait Problems = No Skin: Negative for itching and rash. Neurological: Positive for dizziness and loss of consciousness. Negative for tingling, trem ors, speech change, seizures and weakness. Lightheaded = No Endo/Heme/Allergies: Does not bruise/bleed easily. Psychiatric/Behavioral: Negative for memory loss. The patient is not nervous/anxious and do es not have insomnia. OBJECTIVE: PHYSICAL EXAM BP 118/72 mmHg | Pulse 72 | [...] longer present Confirmed by RAFA WELLS MD ([id number]) on 08/06/2015 9:42:29 AM LAB RESULTS reviewed during visit today primarily from [facility]: LIPID Lab Results Component Value Date CHOLHDL 5.0 11/01/2015 LDLEX 143* 11/01/2015 HDLEX 51 11/01/2015 TRIGEX 172* 11/01/2015 CHOLEX 228* 11/01/2015 CHEMISTRY Lab Results Component Value Date GLU 101 11/13/2015 GLUEX 85 07/03/2015 NA 144 11/13/2015 NAEX 141 07/03/2015 K 4.3 11/13/2015 KEX 4.5 07/03/2015 CL 108 11/13/2015 CLEX 103 07/03/2015 CO2 25 11/13/2015 CO2EX 28 07/03/2015 CALCIUM 9.7 11/13/2015 ALKPHOS 72 08/04/2015 AST 17 08/04/2015 ASTEX 23 07/03/2015 ALT 11 08/04/2015 ALTEX 16 07/03/2015 BILITOT 0.5 08/04/2015 CREA 0.84 11/13/2015 BUN 12 11/13/2015 EGFR >60 03/22/2013 EGFREX >60 07/03/2015 CREEX 0.9 07/03/2015 HEMATOLOGY Lab Results Component Value Date WBC 12.3* 08/04/2015 WBCEX 8.1 07/11/2014 HGB 14.1 11/13/2015 HGBEX 13.7 07/11/2014 HCT 39.8 08/04/2015 HCTEX 40.5 07/11/2014 PLT 362 11/13/2015 PLTEX 370 07/11/2014 I reviewed records from PCP for office visit on 12/19/2015 regarding oral thrush and was s tarted on Clotrimazole. Above data and testing is reviewed this [...] She was seen at the ED of [facility] 3 weeks ago and again [...] Left heart catheterization 02/28/14 shows essentially normal, sm oothly contoured coronary arteries, LVEF 60%. D. Patient has no further complaints of angina. She is very seden tary and not physically active. She thinks is mostly with the emphysema. She has had no in crease in dyspnea more than her baseline. She is in a class II of [employer] on functional class. There is no signs and symptoms of overt congestive heart failure. T here are no fluid retention on physical examination. [...] and v entricular function done at the [facility]. LVEF 78%. C. Holter Monitor [...] therefore no diary was returned. F. She has had no further episodes of tachycardia or bradycardia. S he has had no syncope or near syncope episode but she does have episodes of tiredness and fa tigue. She continues to try to be active. It is noticed that her bradycardia is more pre sent at night and she will be going in the next couple weeks to have her BiPAP checked since this may be related to her sleep apnea. 2. Emphysema/COPD: A. She is on oxygen. We will refer to pulmonary rehabilitation 3. Hypothyroidism 4. Obstructive sleep apnea and nocturnal hypoxemia A. She is utilizing BiPAP with no oxygen PLAN: 1. The current medical regimen is effective; continue present plan and medications. 2. Referral will be placed for pulmonary rehabilitation Dx: COPD and emphysema on oxygen 3. She will follow up in 6 months, or sooner with concerns. Portions of this chart may have been created with [employer] voice recognition software. Occasi onal wrong-word or [...] 2019 | Visit | | [address] | | | | | | [place] [address] | | | | | | [phone] | | | | | | | | +--------+---------+ + + + | 03/01/ | Office | Pulmonology | Mukul Clark MD | | | 2020 | Visit | | [address] | | | | | | [place] | | | | | | [address] | | | | | | | | +--------+---------+ + + + documented as of this encounter Procedures + +--------+ + + + | Procedure Name | Priori | Date/Time | Associated Diagnosis | Comments | | | ty | | | | + +--------+ + + + | LABS - EXTERNAL SCAN | | 11/01/2015 | | Results for this | | | | 12:00 AM | | procedure are in the | | | | PDT | | results section. | + +--------+ + + + documented in this encounter Results LABS - EXTERNAL SCAN (11/01/2015 12:00 AM PDT) + + + | Narrative | Performed At | + + + | Ordered by an | | | unspecified provider. | | + + + documented in this encounter Visit Diagnoses + + | Diagnosis | + + | Abnormal stress test - Primary Other nonspecific abnormal cardiovascular system | | function study | + + | Paroxysmal atrial tachycardia (HCC) Paroxysmal supraventricular tachycardia | + + documented in this encounter
--- OUTSIDE RECORDS SUMMARY | ~2019-09-27 | XMS | Encounter Summary ---
Demographics + + + | Address | [address] | | | [place] [address] | + + + | Home Phone [...] Team Providers + +------+ + | Care Player Development Executive Name | Role | Phone | [...] | | | | unspecified | | [address] | | | | | laterality | | Phone: | | | | | Primary | | [phone] | | | | | localized | | Fax: | | | | | osteoarthros | | [phone] | | | | | is of hand, | | | | | | | unspecified | | | | | | | laterality | | | | | | | [[id number] | | | | | | | Procedures | | | | | | | [place] [facility] | | | | | | [...] | | | | | [address] | [address] [place] | | | | | [place], [place] | [place] [address] | | | | | [address] | [phone] | | | | | [phone] | | | +--------+ + + + [...] +----+---+ + + | | 1 | [place] | | | | 4 | 43-degrees [...] [address] | | eral | Forearm; nhim-diu-uirdib catheter | Teresa Yuan, | Daniela Caro [...] encounter OR Notes Anesthesia Postprocedure Evaluation - Ra Cardona MD - 06/18/2018 4:18 PM PDTFo rmatting of this note might be different from the original. ANESTHESIA POSTANESTHESIA EVALUATION Rosario Malik 53 y.o. female 1965 [id number] Awake and alert in PACU. Block working well. Only complaint currently is need to use the r estroom - getting on bed hernandez shortly. No anesthesia complications. Pulmonary status unchanged, axillary block with no clinical si gns of phrenic compromise (which would be extremely rare anyway) Procedure(s) Right Basal Joint Arthroplasty, tendon interposition (Right Hand) Cooperates? Yes Mental Status Performs simple tasks. Respiratory Satisfactory - Airway patent (self maintained). Cardiovascular Satisfactory - Blood pressure and heart rate acceptable Temperature Satisfactory Pain Satisfactory N/V Control Satisfactory Hydration Satisfactory - No signs of dehydration Complications None apparent Vitals Value Taken Time Temp 36.4 C (97.5 F) 06/18/2018 15:51 Pulse 69 06/18/2018 16:09 Resp 13 06/18/2018 16:05 BP 108/45 06/18/2018 16:07 Arterial Line BP Arterial Line BP 2 SpO2 99 % 06/18/2018 16:09 Vitals shown include unvalidated device data. Electronically signed by Ra Cardona MD 06/18/2018 16:18 [facility] signed by Ra Cardona MD a t 06/18/2018 4:20 PM PDTAnesthesia Procedure Notes - Ra Cardona MD - 06/18/2018 3:14 PM PDTAssociated Order(s): Nerve BlockPerineural Procedure Note Nerve block: axillary-brachial plexus Laterality: right Continuous block with catheter: No Provider requested procedure: Jesus Brady DO Indication: postoperative analgesia Preprocedure check: patient identified, procedure and rescue equipment checked, preevaluati on including airway assessment complete, risks/benefits discussed, consent obtained, timeout performed, reassessment prior to procedure and monitors applied Patient position: supine (Arm elevated over head to open axilla) Preparation: chlorhexidine/isopropyl alcohol, 1% lidocaine infiltration Local anesthetic infiltration volume in ml: 3 mL Technique: ultrasound Radiology image stored in patient's chart: ultrasound Needle: stimulating Needle size: 22 g Needle length: 4 in Medication administered through: needle and incremental injection Negative findings: no blood aspirated and no paresthesia Test response dose: negative Total volume of local anesthetic solution administered: 30 mL Attempts: 1 Ease of procedure: easy Comments: Peripheral nerve block offered at the request of the attending surgeon. Patient ID and surgical laterality confirmed. Pre-procedure pause completed. Patient placed on monitors. Patient positioned supine and area of skin surrounding site of needle entry wa s cleaned with chloroprep solution and allowed to dry. (1) Under ultrasound guidance, a 22 gauge needle was inserted and placed in close proximity to the brachial plexus in the axillary region. (2) Ultrasound was also used to visualize t he spread of the anesthetic in close proximity to the nerves being blocked. (3) The nerve ap peared anatomically normal, and (4) there were no apparent abnormal pathological findings. ( 5) A permanent ultrasound image was saved in the patient's record. Patient tolerated procedure well, conversant throughout with sedation. Please see anesthesia record or flowsheet for vital sign documentation and see anesthesia r ecord or MAR for all medication documentation. Please see anesthesia record or flowsheet for vital sign documentation and see anesthesia r ecord or MAR for additional medication documentation. Performing provider: Ra Cardona MD nesthesia Proc seanre Notes - Ra Cardona MD - 06/18/2018 3:11 PM PDTAssociated Order(s): Airway Anesthesia Airway Placement 06/18/2018 14:52 Preprocedure check: patient identified, oxygen, airway assessed, suction, airway equipment checked and patient reassessment prior to induction Mask ventilation: easy Attempts: 1 Airway type: laryngeal mask Size: 3 Cuffed: cuffed Route, reference point: center of mouth Tube secured with: adhesive tape Trauma: none Tube placement verification: bilateral chest rise, equal bilateral breath sounds and carbon dioxide detection Performing provider: Ra Cardona MD Comments: Patient with extremely poor dentition including missing teeth, chipped, teeth and loose teeth. Teeth examined before and after LMA placement - no change. Atraumatic LMA placement with quality seat and seal. Please see intraoperative grid for any additional medication documentation. nesthesia Prep rocedure Evaluation - Ra Cardona MD - 06/17/2018 2:33 PM PDT ANESTHESIA PREANESTHESIA EVALUATION Rosario Malik 53 y.o. female 1965 [id number] Procedure(s): Right Basal Joint Arthroplasty (Right Hand) Medical,anesthesia, drug, allergy histories reviewed, NPO status verified. ECG reviewed. Labs reviewed. (+) perioperative beta-trent/statin given/taken. . Review of Systems / Med History Anesthesia History No anesthesia complications except where noted below. Previous urology surgery - EZ #4 LMA. Was given hydrocortisone at that time for adrenal luna ppression. Cardiovascular (+) Dysrhythmias (Atrial tachycardia - given digoxin for this): . Pulmonary (+) supplemental oxygen (3L while awake), Chronic Obstructive Pulmonary Disease (Several me dications for this). (+) sleep apnea. (+) Sleep apnea history/interventions: CPAP. (+) asthm a. (+) tobacco use. (+) ex-smoker: 05/2018. Gastrointestinal/Hepatic (+) diverticulitis. Endocrine (+) corticosteroid therapy (On daily prednisone), adrenal insufficiency, hypothyroidism. (- ) obesity. Hematology/Other Negative except where noted below. Obstetrics S/p total hysterectomy. per patient: no Neurology (+) history of headaches, chronic pain, fibromyalgia. Psychology Multiple personality disorder. (+) psychiatric history of anxiety. Physical Exam Dental ; (+) Chipped/Broken teeth, loose teeth, missing teeth and Poor dentition. CV cardiovascular normal Rhythm regular. Rate normal. Pulm Supplemental [address] (+) rhonchi and decreased breath sounds. Neuro Grossly normal. Anesthesia Plan ASA 4 (Home 02 3L 24hrs/day, COPD, recent ex-smoker, Atrial tachycardia on digoxin, multipl e psych issues) Type: General (PNB requested by surgeon for post-op pain control). Induction: Intravenous. Potential problems: None anticipated. Monitors: Standard ASA monitors. Consent statement:Anesthetic plan, alternatives, risks and benefits discussed with patient. Risks discussed included (but were not limited to): drug reaction, infection, pain, respira tory events, voice injury, dental injury, heart problems, muscle aches, perioperative CV alayna nts, sore throat, blood transfusion, nausea,failed or inadequate block, bleeding, nerve pearl ge, intravascular injection. Consenting person understands and agrees to proceed . PARQ. All questions answered prior to proceeding to OR. PARQ for PNB (Axillary) as requested by surgeon for post-operative pain control. Consent for GA obtained as it pertains to the actua l surgical case. Given many medical issues including chronic pain, COPD, 02 dependence, and GARRY - a regional block for post-op pain control is ideal. As a means to avoid any inhibition of normal pulmo nary function, will use axillary block as opposed to supraclavicular location. Stress dose steroids with hydrocortisone planned intra-op. Duoneb ordered for pre-op given pulmonary exam findings.. Electronically Signed by: Ra Cardona MD ESig date/time: 06/18/2018 15:09 documented in t his encounter Plan of [...] [place] | | | | | | [address] | | | | | | | | +--------+---------+ + + + | 11/24/ | Office | Cardiology | [place], | | | 2019 | Visit | | SINDHU Erickson [address] | | | | | [address] [place], | | | | | | [place] [address] | | | | | | [phone] | | | | | | | | +--------+---------+ + + + | 03/01/ | Office | Pulmonology | Mukul Clark MD | | | 2020 | Visit | | [address] | | | | | | [place] | | | | | | [address] | | | | | | | [...] with catheter: | | NoProvider requested procedure: Gregory Joshiication: postoperative | | analgesiaPreprocedure check: patient identified, [...] | | | | |Performing provider: Ra aCrdona MD | + + Airway (06/18/2018 3:11 [...] | | | Starting Carey 06/18/18 at 1448, For | | | [...] PM PDT | | | | | 4/25/19 at 1506, Anesthesia | | | | [...] | | | | Intravenous, PRN, Starting Craey | | 19 3:06 | | | [...] mcg/kg/m | mL/hr | | | Starting Carey 06/18/18 at 1455, | | PM PDT [...]
--- OUTSIDE RECORDS SUMMARY | ~2019-09-27 | XMS | Encounter Summary ---
Demographics + + + | Address | [address] | | | [place] [address] | + + + | Home Phone [...] Team Providers + +------+ + | Care Cementer Hand Name | Role | Phone | [...] | esophagitis | [address] | [place] | | | | | presence not | [place], [place] | [place], | | | | | specified | [address] | [place] [address] | | | | | Procedures | Phone: | Phone: | | | | | NM Gastric | [phone] | [phone] | | | | | Emptying | Fax: | Fax: | | | | | | [phone] | [phone] | +--------+--------+ + + + + Encounter Details +--------+ + + + + | Date | Type | Department | Care Team | Description | +--------+ + + + + | 04/02/ | Hospital | [facility] | Dio Yun | | | 2017 | Encounter | MED CTR NUCLEAR | MD Jesus [address] | | | | | MEDICINE [address] | [place] OLMEDO [address] | | | | | [place], | [place], [place] | | | | | [place] [address] | [address] | | | | | [phone] | [phone] | | | | | | | [...] | | send order to [facility] | | | | | | | [facility]. | | | | | [...] | 0 | 10/13/19 | | | Affwkpufzg-BHKT-Nzsc | mouth as needed. | | | 16 | 7 | | -Cod [id number] MG | | | | | | [...] | | | | | | [place] [address] | | | | | | [phone] | | | | | | | | +--------+---------+ + + + | 03/01/ | Office | Pulmonology | Mukul Clark MD | | | 2020 | Visit | | [address] | | | | | | [place] | | | | | | [address] | | | | | | | [...] Mcbride Results In - 04/02/2016 11:38 AM [facility] NUCLEAR GASTRIC EMPTYING STUDY 04/02/2016 | | [...]
--- OUTSIDE RECORDS SUMMARY | ~2019-09-27 | XMS | Encounter Summary ---
Demographics + + + | Address | [address] | | | [place] [address] | + + + | Home Phone [...] Team Providers + +------+ + | Care Automotive Repair Technician Name | Role | Phone [...] | | | | unspecified | | [address] | | | | | laterality | | Phone: | | | | | Primary | | [phone] | | | | | localized | | Fax: | | | | | osteoarthros | | [phone] | | | | | is of hand, | | | | | | | unspecified | | | | | | | laterality | | | | | | | [[id number] | | | | | | | Procedures | | | | | | | ID REPAIR | | | | | | [...] tendon | | | | [address] | [address] [place], [place] | interposition | | | | [place], [place] | [address] | | | | | [address] | [phone] | | | | | [phone] | | | +--------+---------+ + + + [...] what medicines and drugsyou take. This includes ahvz-amo-rhi nter medicines, herbs, supplements, alcohol or other [...] adam p you safe. Date Last Reviewed: 01/25/201619998626-1896 [employer]. [address] [place] [address], [place] [address]. All righ ts reserved. This information is not intended as a substitute for professional medical care. Always follow your healthcare professional's instructions. [facility] Post-op Instructions - Thumb Surgery The following instructions are meant to guide you following surgery until your first post-o perative visit 7-12 days later. For any problems or questions, please call our office at [phone], Friday through Friday, 9:00 am - 5:00 [...] that you may have received from the the orthopedic specialty hospital, advice from friends, family members, [employer] leaders, grocery store clerks, fox lee, Anu, Dr. Jain, Dr. Weinstein, sports heroes, etc. If unsure, please call our office. Thank you, Jesus Brady D.O. [facility] [address] [place] [address] Your post op appointment is scheduled for Friday06/29/18 at 9:15am. Please check in at 8:45 am for X-rays at the [facility]. documented in this encounter Medications [...] signed by: Jesus Brady DO, 06/18/2018 14:06 [facility] signed by Jesus Brady DO at 0 [...] PA-C, and ew radiographs were obtained at [facility]. She de nies any swelling, numbness or [...] FOR WHEEZING ; Therapy: 14Aug2012 to (Last Rx:[id number]) Requested for: 14Aug2012 Ordered Cetirizine HCl - 10 MG Oral Tablet; TAKE ONE TABLET BY MOUTH EVERY DAY; Therapy: 25Jun2015 to (Evaluate:28Apr2018) Requested for: 02Jun2017; Last Rx:02Jun2017 Ordered Daliresp 500 MCG Oral Tablet; TAKE ONE TABLET BY MOUTH EVERY DAY; Therapy: 24May2013 to (Evaluate:20Jun2018) Requested for: 93Jnk9238; Last Rx:23Yjx6334 Ordered diazePAM 10 MG Oral Tablet; take 1 tablet 30 minutes prior to appointment; Therapy: 69Yft1845 to (Last Rx:86Stk3469) Ordered Digoxin 125 MCG Oral Tablet; TAKE 1 TAB ONCE DAILY; Therapy: 31Jul2017 to Recorded Fluticasone Propionate 50 MCG/ACT Nasal Suspension; INSTILL TWO SPRAYS IN EACH NOSTRIL DAILY; Therapy: 23Mar2018 to (Evaluate:20Aug2018) Requested for: 23Mar2018; Last Rx:23Mar2018 Ordered Gabapentin 800 MG Oral Tablet; TAKE 1 TABLET BY MOUTH 3 TIMES DAILY; Therapy: 40Yen4366 to (Evaluate:33Bej1827) Requested for: 96Cnr6732; Last Rx:53Fmv4837 Ordered hydrOXYzine HCl - 25 MG Oral Tablet; TAKE 1 TABLET AT BEDTIME Requested for: 36Wai3335; Last Rx:90Giv6503; Status: ACTIVE - Transmit to Pharmacy - Awaiting Verification Ordered Ipratropium-Albuterol 0.5-2.5 (3) MG/3ML Inhalation Solution; Therapy: 82Wrj4527 to Recorded Levothyroxine Sodium 75 MCG Oral Tablet; TAKE ONE TABLET BY MOUTH EVERY DAY; Therapy: 14Aug2012 to (Evaluate:53Dyl6535) Requested for: 01Jun2018; Last Rx:01Jun2018 Ordered Magnesium 200 MG Oral Tablet; TAKE 1 TABLET DAILY DIRECTED; Therapy: 17Dec2017 to Recorded Meclizine HCl - 12.5 MG Oral Tablet; TAKE 1 TABLET 3 TIMES DAILY NEEDED; Therapy: 06Nnj5202 to (Evaluate:20Jun2017) Requested for: 18Gog2869; Last Rx:48Ean2865 Ordered metFORMIN HCl - 500 MG Oral Tablet; TAKE 1 TABLET BY MOUTH EVERY 12 HOURS WITH FOOD; Therapy: 95Hcb2194 to (Evaluate:27Jul2018) Requested for: 28Apr2018; Last Rx:28Apr2018; Status: ACTIVE - Transmit to Pharmacy - Awaiting Verification Ordered Nystatin 173628 UNIT/ML Mouth/Throat Suspension; SWISH AND SWALLOW 5 ML 4 TIMES DAILY FOR 7 DAYS; Therapy: 62Czp7627 to (Last Rx:96Bip8004) Requested for: 62Wkp6789 Ordered Oxybutynin Chloride 5 MG Oral Tablet; Take 1 daily; Therapy: (Recorded:18Mar2017) to Recorded Pantoprazole Sodium 40 MG Oral Tablet Delayed Release; TAKE 1 TABLET DAILY; Therapy: 18Mar2017 to Recorded predniSONE 10 MG Oral Tablet; Take one tablet daily; Therapy: 04Gzr4426 to (Evaluate:14Jun2015) Requested for: 09Jun2015 Recorded Propranolol HCl - 10 MG Oral Tablet; TAKE ONE TABLET BY MOUTH TWICE DAILY; Therapy: 54Emd9663 to (Evaluate:14Jun2018) Requested for: 16Dec2017; Last Rx:16Dec2017 Ordered SUMAtriptan Succinate 100 MG Oral Tablet; TAKE 1 TAB BY MOUTH DAILY AT ONSET OF HEADACHE. MAY REPEAT DOSE IN 2 HOURS IF NEEDED. NTE 4 TABS/24HRS; Therapy: 02Jul2016 to (Evaluate:44Gdi3386) Requested for: 19Jan2018; Last Rx:19Jan2018 Ordered traMADol [...] Brady DO - 06/18/2018 3:39 PM PDT [facility] Operative Note Patient: Rosario Malik Date: 06/18/2018 PREOPERATIVE DIAGNOSIS: Right thumb CMC joint OA Postoperative diagnosis: Same SURGICAL PROCEDURE: Procedure(s) (LRB): Right Basal Joint Arthroplasty, tendon interposition (Right) INDICATIONS: Arthritis IMPLANTS: * No implants in log * surgeon: Jesus Brady DO restaurant assistant: Elías Last PA-C ANESTHESIOLOGIST: Anesthesiologist: Ra Cardona MD ANESTHESIA: General with Block FLUID: see [...] | | | | | | [place] [address] | | | | | | [phone] | | | | | | | | +--------+---------+ + + + | 03/01/ | Office | Pulmonology | Mukul Clark MD | | | 2020 | Visit | | [address] | | | | | | [place] | | | | | | [address] | | | | | | | [...] [address] | [place] | [phone] | | [facility] | | [address] | | | - LABORATORY | | [...] | | | | | Wheezing, Starting [facility] 06/18/18 at | | | | [...]
--- OUTSIDE RECORDS SUMMARY | ~2019-09-27 | XMS | Encounter Summary ---
Demographics + + + | Address | [address] | | | [place] [address] | + + + | Home Phone [...] Providers + +------+ + | Care Steam Cleaner Name | Role | Phone | + +------+ + | Juan Cherry DO | PCP | | + +------+ + Encounter Details +--------+---------+ + + + | Date | Type | Department | Care Team | Description | +--------+---------+ + + + | 08/17/ | Office | [facility] | Meghan Garcia MD | GARRY (obstructive | | 2018 | Visit | SLEEP DISORDER [address] | [address] | sleep apnea) | | | | [address] [place] | [place] | (Primary Dx); CSA | | | | [place] [address] | [address] | (central sleep | | | | [phone] | | apnea); Insufficient | | | [...] years before she was switched to bilevel [id number]. 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 We performed a CPAP titration study on [...] time spent below SpO2 of 90% was0%.Transcutaneous IR2iblnei 35-37mmHg during supine wake,a nd remained between [...] the mask and Gupta was much lower, avera AHI was 6 and 13. It was sometimes higher. Patient continued to have awakenings at [facility], and also excessive daytime sleepiness. [...] breaths does not meet criteria for an semiconductor wafer inspector ea or hypopnea. REVELANT MEDICATIONS: Gabapentin, prednisone, tramadol, Ziprasidone. SUBJECTIVE: The patient rated sleep quality during sleep study as usual. Chucking Machine Set Up Operator Tool note: Patient continues to struggle with mask [...] Leak. I s ent a prescription to [place] for nasal mask and chin strap. I also discussed the impact of the sleep deprivation on her health, and excessive daytime s leepiness. She has minimal physical activity. She does some chores, and then she watches T V or is on her computer from 3 [...] book, or do some g uided meditation ([employer]) in part of her living room that [...] [place] | | | | | | [address] | | | | | | | | +--------+---------+ + + + | 11/24/ | Office | Cardiology | [place], | | | 2019 | Visit | | SINDHU Erickson [address] | | | | | | [address] [place] | | | | | | [place] [address] | | | | | | [phone] | | | | | | | | +--------+---------+ + + + | 03/01/ | Office | Pulmonology | Mukul Clark MD | | | 2020 | Visit | | [address] | | | | | | [place] | | | | | | [address] | | | | | | | [...]
--- OUTSIDE RECORDS SUMMARY | ~2019-09-27 | XMS | Encounter Summary ---
Demographics + + + | Address | [address] | | | [place] [address] | + + + | Home Phone [...] | Concussion | Aaron Kim MD | Concert Singer [address] | | | Required | | with brief | [address] | [place] | | | | | loss of | [address] | [place], [place] | | | | | consciousnes | [place], | [address] | | | | | s Word | [place] [id number] | Phone: | | | | | finding | Phone: | [phone] | | | | | difficulty | [phone] | Fax: | | | | | S06.0X9A | Fax: | [phone] | | | | | (ICD-10-CM) | [phone] | | | | | | - [...] + + | 05/23/ | Hospital | [facility] | Aaron Rodriguez, | Concussion with | | 2017 | Encounter | MED CTR SPEECH | MD [address] | brief (less than one | | | | THERAPY [address] | [place], [place] | hour) loss of | | | | [address] [place], | [address] | consciousness | | | | [place] [address] | | (Primary Dx); | | | | [phone] | Kathi Soto, | Impaired memory; | [...] | | | order to [facility]. | | | | | + [...] | | | | send order to [facility] | | | | | | | [facility]. | | | | | | | [...] | | | | ([facility]) | | | | | | + + + +---------+ + + | | Take 1 capsule by | | 0 | 10/13/19 | | | Mflcdfrtju-AHIC-Xlms | mouth as needed. | | | 16 | 7 | | -Cod [id number] MG | | | | | | [...] | | | | ([facility]) | | | | | | [...] Speech Pathologist - 05/23/2016 7:06 PM PDT [facility] SPEECH THERAPY [address] [place] [id number] Speech Therapy Daily Treatment Note Date: 05/23/2016 Patient Information Patient Name: Rosario Malik Date of : 1965 Age: 51 y.o. Encounter Diagnoses Code Name Primary? S06.0X9A Concussion with brief (less than one hour) loss of consciousness Yes R41.3 Impaired memory R41.842 Visuospatial deficit R47.89 Word finding difficulty Date of Onset: 03/15/2016 Referring Provider: Aaron Rodriguez MD Rehab Precautions Office Visit from 05/01/2016 in [facility] CTR THERAPY PT OP Rehab Precautions Precautions None Rehab Learning Style [facility] APPRENTICE FUNERAL DIRECTOR OP EVAL from 05/16/2016 in [facility] SPEECH THERAPY Office V isit from 05/01/2016 in [facility] CTR THERAPY PT OP Learning Style [...] [place] | | | | | | [address] | | | | | | | | +--------+---------+ + + + | 11/24/ | Office | Cardiology | [place], | | | 2019 | Visit | | SINDHU Erickson [address] | | | | | | [place] | | | | | | [place] [address] | | | | | | [phone] | | | | | | | | +--------+---------+ + + + | 03/01/ | Office | Pulmonology | Mukul Clark MD | | | 2020 | Visit | | [address] | | | | | | [place] | | | | | | [address] | | | | | | | [...]
--- OUTSIDE RECORDS SUMMARY | ~2019-09-27 | XMS | Encounter Summary ---
Demographics + + + | Address | [address] | | | [place] [address] | + + + | Home Phone [...] Providers + +------+ + | Care Booking Prizer Name | Role | Phone | + +------+ + | Juan Cherry DO | PCP | | + +------+ + Encounter Details +--------+ + + + + | Date | Type | Department | Care Team | Description | +--------+ + + + + | 02/21/ | Abstract | [facility] [place] | [place], | | | 2013 | | CARDIOLOGY [address] | SINDHU Erickson [address] | | | | | [place], | [place], | | | | | [place] [address] | [place] [address] | | | | | [phone] | [phone] | | | | | | | [...] [place] | | | | | | [address] | | | | | | | | +--------+---------+ + + + | 11/24/ | Office | Cardiology | [place], | | | 2019 | Visit | | SINDHU Erickson [address] | | | | | | [address] [place] | | | | | | [place] [address] | | | | | | [phone] | | | | | | | | +--------+---------+ + + + | 03/01/ | Office | Pulmonology | Mukul Clark MD | | | 2020 | Visit | | [address] | | | | | | [place] | | | | | | [address] | | | | | | | | +--------+---------+ + + + documented as of this encounter Visit Diagnoses Not on filedocumented in this encounter"
--- OUTSIDE RECORDS SUMMARY | ~2019-09-27 | XMS | Encounter Summary ---
Demographics + + + | Address | [address] | | | [place] [address] | + + + | Home Phone [...] Team Providers + +------+ + | Care Processing Supervisor Name | Role | Phone | [...] MD | symptoms) | | | | [place], | | | | | | [place] [address] | | | | | | [phone] | | | +--------+ + + + [...] she does not follow through on her assisted prescriptions, I will not provide any more [...] into her pharmacy. Ad ivsed her to fern picker the Prednisone soon and start it. [...] | | | | | | [place] [address] | | | | | | [phone] | | | | | | | | +--------+---------+ + + + | 03/01/ | Office | Pulmonology | Mukul Clark MD | | | 2020 | Visit | | [address] | | | | | | [place] | | | | | | [address] | | | | | | | | +--------+---------+ + + + documented as of this encounter Visit Diagnoses Not on filedocumented in this encounter"
--- OUTSIDE RECORDS SUMMARY | ~2019-09-27 | XMS | Encounter Summary ---
Demographics + + + | Address | [address] | | | [place] [address] | + + + | Home Phone [...] Team Providers + +------+ + | Care Horticultural Specialty Grower Inside Name | Role | Phone | + [...] | obstruction, not | | | | [place], | | elsewhere classified | | | | [place] [address] | | ([facility]) | | | | [phone] | | | +--------+ + + + [...] | | | | | | [place] [address] | | | | | | [phone] | | | | | | | | +--------+---------+ + + + | 01/06/ | Office | Pulmonology | Mukul Clark MD | | | 2020 | Visit | | [address] | | | | | | [place] | | | | | | [address] | | | | | | | | +--------+---------+ + + + documented as of this encounter Visit Diagnoses + + | Diagnosis | + + | Chronic airway obstruction, not elsewhere classified | + + documented in this encounter"
--- OUTSIDE RECORDS SUMMARY | ~2019-09-27 | XMS | Encounter Summary ---
Demographics + + + | Address | [address] | | | [place] [address] | + + + | Home Phone [...] Providers + +------+ + | Care Assistant Executive Housekeeper Name | Role | Phone | + +------+ + | Juan Cherry DO | PCP | | + +------+ + Reason for Visit + +--------+ + | Reason | Onset | Comments | | | Date | | + +--------+ + | Medication Refill | 02/04/ | | | | 2019 | | + +--------+ + Encounter Details +--------+--------+ + + + | Date | Type | Department | Care Team | Description | +--------+--------+ + + + | 02/04/ | Refill | [facility] | Mukul Clark MD | Medication Refill | | 2019 | | PULMONOLOGY [address] | | | | | [address] | [place], [place] | | | | | [place], [place] | [address] | | | | | [address] | | | | | | [phone] | | | +--------+--------+ + + + [...] [place] | | | | | | [address] | | | | | | | | +--------+---------+ + + + | 11/24/ | Office | Cardiology | [place] | | | 2019 | Visit | | [address] | | | | | | [place], | | | | | | [place] [address] | | | | | | [phone] | | | | | | | | +--------+---------+ + + + | 03/01/ | Office | Pulmonology | Mukul Clark MD | | | 2020 | Visit | | [address] | | | | | | [place] | | | | | | [address] | | | | | | | | +--------+---------+ + + + documented as of this encounter Visit Diagnoses + + | Diagnosis | + + | Centrilobular emphysema (HCC) - Primary | + + documented in this encounter"
--- OUTSIDE RECORDS SUMMARY | ~2019-09-27 | XMS | Encounter Summary ---
Demographics + + + | Address | [address] | | | [place] [address] | + + + | Home Phone [...] Team Providers + +------+ + | Care Securities Consultant Name | Role | Phone | [...] + + | 07/27/ | Office | [facility] [place] | Brian Miranda | Sprain of [...] | | occurrence, | | | | [address] | | industrial places | | | | [phone] | | and premises | +--------+---------+ + [...] 07/27/2013 10:36 AM PDTEmployer: Jeannette Salcedo Guarantor: [employer] Date of injury: 04/05/13 Claim number: [id number] Chief complaint: chest wall sprain, closing evaluation [...] well over a month ago from the qualitative field project manager for the [facility] information regarding claims management and patient's condition, that form is completed today and this does represent a closing evaluation on this individual. No rose nges in background medical information of. Past medical history, medications, allergies reviewed Review of systems: As per HPI Objective: Vital signs as noted, nursing notes reviewed. Wxuxfos-vnln-gcabnvamf, well-nourished, in no apparent distress, pleasant cooperative. [...] alexandra hassan. documented in t his encounter Miscellaneous Notes Plan of Care - [facility] - 07/27/2013 12:00 AM PDT lan of Care - [facility] - 07/27/2013 12:00 AM PDTElect ronically signed by [place] Pozoak at 07/29/2013 3:24 PM PDTdocumented in this encounter Plan of [...] [place] | | | | | | [id number] | | | | | | | | +--------+---------+ + + + | 11/24/ | Office | Cardiology | [place], | | | 2019 | Visit | | [address] | | | | | | [place], | | | | | | [place] [address] | | | | | | [phone] | | | | | | | | +--------+---------+ + + + | 03/01/ | Office | Pulmonology | Mukul Clark MD | | | 2020 | Visit | | [address] | | | | | | [place] | | | | | | [address] | | | | | | | | +--------+---------+ + + + documented as of this encounter Visit Diagnoses + + | Diagnosis | + + | Sprain of chest wall, subsequent encounter - Primary | + + | Place of occurrence, industrial places and premises | + + documented in this encounter
--- OUTSIDE RECORDS SUMMARY | ~2019-09-27 | XMS | Encounter Summary ---
Demographics + + + | Address | [address] | | | [place] [address] | + + + | Home Phone [...] Team Providers + +------+ + | Care Ballroom Dancer Name | Role | Phone | + [...] | RN | | | | | [place], | | | | | | [place] [address] | | | | | | [phone] | | | +--------+ + + + [...] | | | | | | [place] [address] | | | | | | [phone] | | | | | | | | +--------+---------+ + + + | 03/01/ | Office | Pulmonology | Mukul Clark MD | | | 2020 | Visit | | [address] | | | | | | [place] | | | | | | [address] | | | | | | | | +--------+---------+ + + + documented as of this encounter Visit Diagnoses Not on filedocumented in this encounter"
--- OUTSIDE RECORDS SUMMARY | ~2019-09-27 | XMS | Encounter Summary ---
Demographics + + + | Address | [address] | | | [place] [address] | + + + | Home Phone [...] Providers + +------+ + | Care Food Stylist Name | Role | Phone | + [...] Description | +--------+--------+ + + + | 07/06/ | Refill | [facility] [place] | [place], | Medication Refill | | 2013 | | PULMONARY [address] | Loreta Alonso MD | | | | | [place], | | | | | | [place] [address] | | | | | | [phone] | | | +--------+--------+ + + + [...] [place] | | | | | | [address] | | | | | | | | +--------+---------+ + + + | 11/24/ | Office | Cardiology | [place], | | | 2020 | Visit | | S[address] Ericks[address] | | | | | | [place] | | | | | | [place] [address] | | | | | | [phone] | | | | | | | | +--------+---------+ + + + | 03/01/ | Office | Pulmonology | Mukul Clark MD | | | 2020 | Visit | | [address] | | | | | | [place] | | | | | | [address] | | | | | | | | +--------+---------+ + + + documented as of this encounter Visit Diagnoses Not on filedocumented in this encounter"
--- OUTSIDE RECORDS SUMMARY | ~2019-09-27 | XMS | Encounter Summary ---
Demographics + + + | Address | [address] | | | [place] [address] | + + + | Home Phone [...] Team Providers + +------+ + | Care Button Sewer Name | Role | Phone | [...] | +--------+ + + + + | 09/02/ | Hospital | [facility] | [place], | Shortness of breath; | | 2017 | Encounter | [facility] | [address]IND[address] | Racing heart beat; | | | | MEDICINE [address] | [place], | Palpitations | | | | [place] | [place] [address] | | | | | [place] [address] | [phone] | | | | | [phone] | | | +--------+ + + + [...] | | | | order to [facility]. | | | | | [...] | | | [facility]. | | | | | | | [...] documented as of this encounter Procedure Notes Jared Mcdonough MD - 09/04/2017 10:18 AM PDTAssociated Order(s): HOLTER MONITOR - 48 OLAMIDE R PATIENT NAME: Rosario Malik : 1965: AGE: 52 y.o. PRIMARY CARE: DO CAMILLE Guillaume FISH HATCHERY MANAGER: Jared Mcdonough MD 48-HOUR HOLTER MONITOR REPORT DATE: 09/02/2017 IMPRESSION: 1. The predominant rhythm is normal sinus with the heart rate ranging between 58 and 184 b eats per minute. The average heart rate was 85 beats per minute during the 47:29 hour recor ding. 2. Very rare to rare premature ventricular contractions including one couplet. 3. Frequent premature atrial contractions including 24 runs of PSVT (longest run 296 beats (05:06-3) and a maximum heart rate of 203 beats per minute (05:58-3). An additional 17 SVE runs were noted, as well as 57 couplets. 4. 18 runs of sinus bradycardia with the longest run 45 beats (06:19-2) and the minimum ra te 53 beats per minute (06:12-2). 5. 22 runs of sinus tachycardia with the longest run 45 beats at a maximum rate of 141 nazario ts per minute (08:26-3). 6. Patient reported two symptoms of chest pounding and headache. These correlated with th e PSVT which was within 1 or 2 minutes of patient reported times. Signed by: Jared Mcdonough MD [facility] 09/04/2017, 10:18 documented in this encounter Plan of Treatment [...] | | | | | | [place] [address] | | | | | | [phone] | | | | | | | | +--------+---------+ + + + | 03/01/ | Office | Pulmonology | Mukul Clark MD | | | 2020 | Visit | | [address] | | | | | | [place] | | | | | | [address] | | | | | | | | +--------+---------+ + + + + +------+--------+ + + | Name | Type | Priori | Associated Diagnoses | Order Schedule | | | | ty | | | + +------+--------+ + + | Holter monitor - 48 | ECG | Routin | Shortness of | 1 Occurrences | | hour | | e | breath Racing heart | starting 09/02/2017 | | | | | beat | until 09/02/2017 | + +------+--------+ + + documented as of this encounter Procedures + +--------+ + + + | Procedure Name | Priori | Date/Time | Associated Diagnosis | Comments | | | ty | | | | + +--------+ + + + | HOLTER MONITOR - 48 | Routin | 09/04/2017 | | Results for this | | HOUR | e | 10:18 AM | | procedure are in the | | | | PDT | | results section. | + +--------+ + + + documented in this encounter Visit Diagnoses + + | Diagnosis | + + | Shortness of breath | + + | Racing heart beat Tachycardia, unspecified | + + | Palpitations | + + documented in this encounter"
--- OUTSIDE RECORDS SUMMARY | ~2019-09-27 | XMS | Encounter Summary ---
Demographics + + + | Address | [address] | | | [place] [address] | + + + | Home Phone [...] Providers + +------+ + | Care Business Ethics Professor Name | Role | Phone | + +------+ + | Juan Cherry DO | PCP | | + +------+ + Reason for Visit +--------+--------+ + | Reason | Onset | Comments | | | Date | | +--------+--------+ + | Other | 05/26/ | | | | 2012 | | +--------+--------+ + Encounter Details +--------+ + + + + | Date | Type | Department | Care Team | Description | +--------+ + + + + | 05/26/ | Telephone | [facility] [place] | Marilyn Osborne, | Other | | 2012 | | PULMONARY [address] | RN | | | | | [place], | | | | | | [place] [address] | | | | | | [phone] | | | +--------+ + + + [...] Telephone Encounter - Marilyn Osborne RN - 05/26/2012 9:47 AM PDTRenzo Ponce and acacia singleton Dr [place] that an order will be sent to [facility] to change her CPAP pressure to 13 cm H2O to see if that will decrease her AHI. Okay per Rosario and she will take her CPAP i n today for the change. documented in this encounter Plan of Treatment [...] | | | | | | [place] [address] | | | | | | [phone] | | | | | | | | +--------+---------+ + + + | 03/01/ | Office | Pulmonology | Mukul Clark MD | | | 2020 | Visit | | [address] | | | | | | [place] | | | | | | [phone] | | | | | | | | +--------+---------+ + + + documented as of this encounter Visit Diagnoses Not on filedocumented in this encounter"
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
--- OUTSIDE RECORDS SUMMARY | ~2019-09-27 | XMS | Encounter Summary ---
Demographics + + + | Address | [address] | | | [place] [address] | + + + | Home Phone [...] Team Providers + +------+ + | Care Competitive Shopper Name | Role | Phone | + +------+ + | Juan Cherry DO | PCP | | + +------+ + Reason for Visit +--------+--------+ + | Reason | Onset | Comments | | | Date | | +--------+--------+ + | Other | 12/21/ | increased shortnes of breath | | | 2012 | | +--------+--------+ [...] shortnes of breath) | | | | [place], | | | | | | [place] [address] | | | | | | [phone] | | | +--------+ + + + [...] Telephone Encounter - Marilyn Osborne RN - 12/21/2012 4:20 PM PDTCalled Rosario and re layed this message. She scheduled an appointment and understands that she would need to go t o Urgent Care for now if needed. elephone Encounter - Loreta London MD - 12/21/2012 11:34 AM PDTAs she has moved, left my care, been seen elsewhere in the interim, she would need to go to urgent care until she re establishes here. I cannot provide phone care until she does so. Bisi lacey signed by Loreta London MD at 12/21/2012 11:35 AM PDTTelephone Encounter - Marilyn Gibbs RN - 12/21/2012 9:43 AM PDTGretchen called stating that she moved back to [facility] from [place]. She intends to schedule a follow up but added that on Friday ritesh russell had increased shortness of breath and increased wheeze. She was hospitalized in [place] twice and had Prednisone on hand so took 40 mg on Friday and stated that it did not help s o took 60 mg this morning. Rosario has not had a recent acute illness or fever. She states that this exacerbation may be due to increased fatigue and stress. Her cough is productive o f greenish colored mucus. Rosario was given DuoNeb and is using it at bedtime and the Combi vent 4 times a day. She will need additional Prednisone. documented in this encounter Plan of Treatment [...] [place] | | | | | | [id number] | | | | | | | | +--------+---------+ + + + | 11/24/ | Office | Cardiology | [place], | | | 2019 | Visit | | SINDHU Erickson [address] | | | | | | [place] | | | | | | [place] [address] | | | | | | [phone] | | | | | | | | +--------+---------+ + + + | 03/01/ | Office | Pulmonology | Mukul Clark MD | | | 2020 | Visit | | [address] | | | | | | [place] | | | | | | [address] | | | | | | | | +--------+---------+ + + + documented as of this encounter Visit Diagnoses Not on filedocumented in this encounter"
--- OUTSIDE RECORDS SUMMARY | ~2019-09-27 | XMS | Encounter Summary ---
Demographics + + + | Address | [address] | | | [place] [address] | + + + | Home Phone [...] Providers + +------+ + | Care Bridge Maintainer Name | Role | Phone | + +------+ + | Juan Cherry DO | PCP | | + +------+ + Encounter Details +--------+ + + + + | Date | Type | Department | Care Team | Description | +--------+ + + + + | 11/08/ | Hospital | [facility] | Conversion | Asthma, moderate | | 2014 | Encounter | PULMONARY FUNCTION | Transaction, | persistent, | | | | LAB [address] | Provider Unknown | uncomplicated | | | | [place], [place] | [phone] | | | | | [address] | | | | | | [phone] | | | +--------+ + + + [...] | | | | send order to [facility] | | | | | | | [facility]. | | | | | | | [...] Procedures by Mukul Clark MD at 11/09/14 025 Author: Mukul Clark MD Service: Fire Loss Prevention Engineer Author Type: Physician Filed: 11/09/14 2217 Date of Service: 11/09/141633 Status: Signed Prosthetic Assistant: Mukul Clark MD (Physician) Procedure Orders: 1. Complete PFT - Pre & Post Spirometry, PLETH & DLCO [[id number]] ordered by Mukul Clark MD at 10/04/14 1326 [facility] Service: Pulmonology PULMONARY FUNCTION TEST Name [...] [place] | | | | | | [id number] | | | | | | | | +--------+---------+ + + + | 11/24/ | Office | Cardiology | [place] | | | 2019 | Visit | | SINDHU Erickson [address] | | | | | | [place], | | | | | | [place] [address] | | | | | | [phone] | | | | | | | | +--------+---------+ + + + | 03/01/ | Office | Pulmonology | Mukul Clark MD | | | 2020 | Visit | | [address] | | | | | | [place] | | | | | | [address] | | | | | | | | +--------+---------+ + + + documented as of this encounter Visit Diagnoses + + | Diagnosis | + + | Asthma, moderate persistent, uncomplicated | + + documented in this encounter"
--- OUTSIDE RECORDS SUMMARY | ~2019-09-27 | XMS | Encounter Summary ---
Demographics + + + | Address | [address] | | | [place] [address] | + + + | Home Phone [...] Providers + +------+ + | Care Track Car Operator Name | Role | Phone | + +------+ + PCP | Unavailable | + +------+ + Encounter Details +--------+ + + + + | Date | Type | Department | Care Team | Description | +--------+ + + + + | 07/26/ | Hospital | [facility] | Elda Miranda | | | 2010 | Encounter | MED CTR LABORATORY | MD H[address] | | | | | [address] [place] | [address] [place] | | | | | [place], [place] | [place] [address] | | | | | [address] | [phone] | | | | | [phone] | | | +--------+ + + + [...] | | | | | | [place] [address] | | | | | | [phone] | | | | | | | | +--------+---------+ + + + | 03/01/ | Office | Pulmonology | Mukul Clark MD | | | 2020 | Visit | | [address] | | | | | | [place] | | | | | | [address] | | | | | | | [...] [address] | [place] | [phone] | | [facility] | | [address] | | | - LABORATORY | | | | + + + + + | [facility] | [address] | [place] | | | [facility] | | [address], [facility] | | | - LABORATORY | [...] - 1.030 | [facility] | | | [place], | | | [facility] | | [...] + | [facility] | [address] | [place] | [phone] | | [facility] | | [address] | | | - LABORATORY | | | | + + + + + | [facility] | [address] | [place] | | | [facility] | | [address], [facility] | | | - LABORATORY | | | | + + + + + documented in this encounter Visit Diagnoses Not on filedocumented in this encounter"
--- OUTSIDE RECORDS SUMMARY | ~2019-09-27 | XMS | Encounter Summary ---
Demographics + + + | Address | [address] | | | [place] [address] | + + + | Home Phone [...] Providers + +------+ + | Care Core Extruder Name | Role | Phone | + +------+ + | Juan Cherry DO | PCP | | + +------+ + Reason for Visit +--------+--------+ + | Reason | Onset | Comments | | | Date | | +--------+--------+ + | Other | 03/25/ | PRESCRIPTION | | | 2017 | | +--------+--------+ + Encounter Details +--------+ + + + + | Date | Type | Department | Care Team | Description | +--------+ + + + + | 03/25/ | Telephone | [facility] | Andriy Weber | Other (PRESCRIPTION) | | 2017 | | [address] | [address] | | | | | [place] | [place] | | | | | [address] | [place] [address] | | | | | [phone] | [phone] | | | | | | | [...] Telephone Encounter - Nancy Dalal CMA - 04/01/2016 1:29 PM PSTReceived Prior auth for H ydroxyzine 25 mg tabs for 03/28/16 to 02/23/17. Pt. Was called and notified per voicemail to ashley sheppard with her pharmacy. Faxed to the pharmacy. elephone Encounter - Korin Holly - 03/25/2016 8:54 AM PSTP atient is calling in because she just got news from her insurance that they will no longer b e covering hydroxyzine hcl 25mg. Patient wants to know if Dr. Weber can prescribe something else or justify why she needs this so the insurance will cover. [phone]. documented in this encounter Plan of Treatment +--------+---------+ + + + | Date | Type | Specialty | Care Team | Description | +--------+---------+ + + + | 08/04/ | Office | Sleep Medicine | Meghan Garcia MD | | | 2019 | Visit | | [address] | | | | | | [place] | | | | | | [address] | | | | | | | | +--------+---------+ + + + | 11/24/ | Office | Cardiology | [place], | | | 2019 | Visit | | SINDHU Erickson [address] | | | | | | [place], | | | | | | [place] [address] | | | | | | [phone] | | | | | | | [...]
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
--- OUTSIDE RECORDS SUMMARY | ~2019-09-27 | XMS | Encounter Summary ---
Demographics + + + | Address | [address] | | | [place] [address] | + + + | Home Phone [...] Team Providers + +------+ + | Care Fixed Income Manager Name | Role | Phone | [...] + + | 07/14/ | Emergency | [facility] | Ozzie Hayes | Acute exacerbation | | 2013 | | MED CTR EMERGENCY | MD Ran [address] | of COPD with asthma | | | | [place] [address] | [address] | ([facility]) (Primary Dx) | | | | [place], [place] | [place] [address] | | | | | [address] | [phone] | | | | | [phone] | | | +--------+ + + + [...] | | | order to [facility]. | | | | | + [...] pituitary gland and craniopharyngeal duct (pouch) ([facility]) 10/28/2012 Overview: Managed by [facility] along with hypothyroidism Osteoarthritis Past Surgical History Procedure Date Hammertoe repair right sided Hiatal hernia repair Hiatal hernia Kirk and bso Ovarian cysts, not cancer Colonoscopy 03/2010 Colonoscopy 1995 [facility] CURRENT MEDICATIONS Current Outpatient Rx Name Route [...] months 1 each 99 RESPIRATORY THERAPY SUPPLIES [facility] Please provide patient with necessary CPAP supplies (she did not specify, okay to send or willow as appropriate) Diagnosis Code(s)327.23 . Length of Need 99 months. Please send order to [facility]. 1 each 0 RESPIRATORY THERAPY SUPPLIES [facility] Change CPAP back to 11-14 cm H2O. All necessary supplies. No oxygen bleed in. Diagnosis C ode(s)327.23. Length of Need: Lifetime. Please send order to [facility]. 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 Contact information: [address] [facility] [id number] New Prescriptions AZITHROMYCIN (ZITHROMAX) 250 MG TABLET Take 2 tablets by mouth daily x 1 day, then take 1 tablet by mouth daily x 4 days. PREDNISONE (DELTASONE) 10 MG TABLET Take 4 tablets by mouth Daily for 5 doses. Ozzie Hayes MD 07/14/13 0639 do cumented in this encounter Miscellaneous Notes Plan of Care - [facility] - 07/15/2013 12:00 AM PDT lan of Care - [facility] - 07/15/2013 12:00 AM PDTElect ronically signed by Rolando Pozo at 07/15/2013 12:34 PM PDTED Triage Notes - Jesus Brooks RN - 07/14/2013 12:17 AM PDTStates [...] [place] | | | | | | [address] | | | | | | | | +--------+---------+ + + + | 11/24/ | Office | Cardiology | [place], | | | 2019 | Visit | | SINDHU Erickson [address] | | | | | | [place], | | | | | | [place] [address] | | | | | | [phone] | | | | | | | | +--------+---------+ + + + | 03/01/ | Office | Pulmonology | Mukul Clark MD | | | 2020 | Visit | | [address] | | | | | | [place] | | | | | | [address] | | | | | | | [...] mL/min/1.73m2 | [facility] | | | [place]ian | RATE,ESTIMATED | | MEDICAL | | | | mL/min/1.08j4Qcsn than | | CENTER - | | [...] + | [facility] | [address] | [place] | [phone] | | [facility] | | [address] | | | - LABORATORY | | | | + + + + + | [facility] | [address] | [place], [place] | | | [facility] | | [id number] | | | - LABORATORY [...] | | Cells | | M/uL | [facility] | | | | | [...] + | [facility] | [address] | [place], [place] | [phone] | | [facility] | | [address] | | | - LABORATORY | | | | + + + + + | [facility] | [address] | [place], [place] | | | [facility] | | [id number] | | | - LABORATORY | [...] + | MISCELLANEOUS LAB | | | [phone] | + +---------+ + + | MISCELANIOUS LAB | | | [phone] | + +---------+ + + ED INFORMATION EXCHANGE (07/14/2013 12:20 AM PDT) + + | Specimen | + + | | + + + + + | Narrative | Performed At | + + + | VISIT TRACKING (3 MO.) Visit Date Location | [facility] | | Type Diagnoses | | | -------- | | | ---- 07/14/2013 00:15 [place] | | | [facility] Emergency Shortness of Breath; | | | 06/19/2013 21:06 [facility] | | | Emergency Obstructive chronic bronchitis with (acute) | | | exacerbation; | | | Shortness of | | | Breath; | | | diff breathing; | | | 06/19/2013 11:03 [facility] | | | Emergency COPD exasperation; 05/23/2013 19:52 [place] | | | [facility] Emergency Obstructive chronic | | | bronchitis with (acute) exacerbation; | | | | | | Obstructive chronic bronchitis with (acute) exacerbation; | | | | | | sob; | | | | | | Shortness of Breath; VISIT COUNT (1 YR.) Visits | | | Medicaid [place] Dx Location ------ | | | --------- 10 0 [facility]. | | | [facility] 10 0 Total | | | Note: Visits indicate total known visits. [place] Dx are the | | | number of primary diagnoses on the [facility]'s non-emergent dx list. | | | [...]
--- OUTSIDE RECORDS SUMMARY | ~2019-09-27 | XMS | Encounter Summary ---
Demographics + + + | Address | [address] | | | [place] [address] | + + + | Home Phone [...] Providers + +------+ + | Care Senior Peoplesoft Developer Name | Role | Phone | + +------+ + PCP | Unavailable | + +------+ + Encounter Details +--------+ + + + + | Date | Type | Department | Care Team | Description | +--------+ + + + + | 01/23/ | Hospital | [facility] | Ozzy Delcid, | | | 2009 | Encounter | MED CTR XRAY [address] | [address] | | | | | [place] | [address] [place], | | | | | [place] [address] | [place] [address] | | | | | [phone] | [phone] | | | | | | | [...] [place] | | | | | | [address] | | | | | | | | +--------+---------+ + + + | 11/24/ | Office | Cardiology | [place], | | | 2019 | Visit | | SINDHU Erickson [address] | | | | | | [place] | | | | | | [place] [address] | | | | | | [phone] | | | | | | | | +--------+---------+ + + + | 03/01/ | Office | Pulmonology | Mukul Clark MD | | | 2020 | Visit | | [address] | | | | | | [place] | | | | | | [address] | | | | | | | | +--------+---------+ + + + documented as of this encounter Visit Diagnoses Not on filedocumented in this encounter"
--- OUTSIDE RECORDS SUMMARY | ~2019-09-27 | XMS | Encounter Summary ---
Demographics + + + | Address | [address] | | | [place] [address] | + + + | Home Phone [...] Team Providers + +------+ + | Care Melt Down Furnace Operator Name | Role | Phone | + +------+ + | Juan Cherry DO | PCP | | + +------+ + Encounter Details +--------+ + + + + | Date | Type | Department | Care Team | Description | +--------+ + + + + | 09/09/ | Hospital | [facility] | Conversion | Pain | | 2015 | Encounter | CONVERSION [address] | Transaction, | | | | | [address] | Provider Unknown | | | | | [place], [place] | [phone] | | | | | [address] | | | | | | [phone] | | | +--------+ + + + [...] | | | | | | | [facility]. | | | | [...] | | | | | | | ([facility]) | | | | | [...] | | | | | | | ([facility]) | | | | | [...] [place] | | | | | | [address] | | | | | | | | +--------+---------+ + + + | 11/24/ | Office | Cardiology | [place], | | | 2019 | Visit | | SINDHU Erickson [address] | | | | | | [place] | | | | | | [place] [address] | | | | | | [phone] | | | | | | | | +--------+---------+ + + + | 03/01/ | Office | Pulmonology | Mukul Clark MD | | | 2020 | Visit | | [address] | | | | | | [place] | | | | | | [address] | | | | | | | [...]
--- OUTSIDE RECORDS SUMMARY | ~2019-09-27 | XMS | Encounter Summary ---
Demographics + + + | Address | [address] | | | [place] [address] | + + + | Home Phone [...] Providers + +------+ + | Care Field Ironworker Name | Role | Phone | + [...] + + | 08/24/ | Office | [facility] | Keivn Sandoval, | COPD (chronic | | 2015 | Visit | PULMONARY [address] | MD [address] | obstructive | | | | [place], | [place], [place] | pulmonary disease) | | | | [place] [address] | [address] | ([facility]) (Primary Dx); | | | | [phone] | | Hypoxemia ([facility]); | | | | | | COPD with acute | | | | | | bronchitis ([facility]) | +--------+---------+ + + + Social [...] your ankles gets worse Dizziness or weakness 1216-8034 [employer]. [address] [place] [address], [place] [address]. All righ ts reserved. This information is not intended as a substitute for professional medical care. Always follow your healthcare professional's instructions. documented in this encounter Progress Notes Kevin Sandoval MD - 08/24/2014 9:03 AM PDTFormatting of this note might be different f rom the original. Pulmonary Follow Up 08/24/2014 HPI Rosario Malik is a 49 y.o. female patient of Juan Cherry () here today for foll ow up [...] nocturnal oxygen. T zac are currently on oxygen at 2 L/m [...] (pouch) ([facility]) 10/28/2012 Overview: Managed by [facility] along with hypothyroidism Osteoarthritis Tachycardia [...] 15 tablet, Rfl: 3 Respiratory Therapy Supplies MISC, Please provide patient [...] of Need: Lifetime. Please send order t [facility]. This is not a new [...] | | | | | | [place] [address] | | | | | | [phone] | | | | | | | | +--------+---------+ + + + | 03/01/ | Office | Pulmonology | Mukul Clark MD | | | 2020 | Visit | | [address] | | | | | | [place] | | | | | | [phone] | | | | | | | [...]
--- OUTSIDE RECORDS SUMMARY | ~2019-09-27 | XMS | Encounter Summary ---
Demographics + + + | Address | [address] | | | [place] [address] | + + + | Home Phone [...] Team Providers + +------+ + | Care Dishcloth Folder Name | Role | Phone | + +------+ + | Ozzy Delcid MD | PCP | | + +------+ + Encounter Details +--------+ + + + + | Date | Type | Department | Care Team | Description | +--------+ + + + + | 11/24/ | Abstract | [facility] | Ozzy Delcid, | | | 2011 | | Anti-Coagulation | MD [address] | | | | | Clinic | [address] [place], | | | | | | [place] [address] | | | | | | [phone] | | | | | | | [...] [place] | | | | | | [address] | | | | | | | | +--------+---------+ + + + | 11/24/ | Office | Cardiology | [place], | | | 2019 | Visit | | SINDHU Erickson [address] | | | | | | [place] | | | | | | [place] [address] | | | | | | [phone] | | | | | | | | +--------+---------+ + + + | 03/01/ | Office | Pulmonology | Mukul Clark MD | | | 2020 | Visit | | [address] | | | | | | [place] | | | | | | [address] | | | | | | | | +--------+---------+ + + + documented as of this encounter Visit Diagnoses Not on filedocumented in this encounter"
--- OUTSIDE RECORDS SUMMARY | ~2019-09-27 | XMS | Encounter Summary ---
Demographics + + + | Address | [address] | | | [place] [address] | + + + | Home Phone [...] Team Providers + +------+ + | Care Video Production Intern Name | Role | Phone | [...] | Concussion | Aaron Kim MD | Rectification Printer [address] | | | Required | | with brief | [address] | [place] | | | | | loss of | [address] | [place], [place] | | | | | consciousnes | [place], | [address] | | | | | s Word | [place] [address] | Phone: | | | | | finding | Phone: | [phone] | | | | | difficulty | [phone] | Fax: | | | | | [phone] | Fax: | [phone] | | | | | (ICD-10-CM) | [phone] | | | | | | - [...] | +--------+ + + + + | 06/20/ | Hospital | [facility] | Aaron Rodriguez, | Impaired memory | | 2017 | Encounter | MED CTR SPEECH | MD [address] | (Primary Dx); | | | | THERAPY [address] | [place] | Concussion with | | | | [place], | [address] | brief (less than one | | | | [place] [address] | | hour) loss of | | | | [phone] | Kathi Soto, | consciousness; | | | | | Speech Pathologist [...] | | | | | | [facility]. | | | | [...] | | | | | | | ([facility]) | | | | | | + + + +---------+ + + | | Take 1 capsule by | | 0 | 10/13/19 | | | Odfhqxviqd-FMCV-Jfzh | mouth as needed. | | | 16 | 7 | | -Cod [id number] MG | | | | | | [...] | | | | | | | ([facility]) | | | | | [...] Progress Notes Kathi Soto, Speech Pathologist - 06/21/2016 1:45 PM PDT [facility]ECH [facility]ERAP[facility] [address] [place] [address] Speech Therapy Daily Treatment Note Date: 06/20/2016 Patient Information Patient Name: Rosario Malik Date of : 1965 Age: 51 y.o. Encounter Diagnoses Code Name Primary? R41.3 Impaired memory Yes S06.0X9A Concussion with brief (less than one hour) loss of consciousness R41.842 Visuospatial deficit R47.89 Word finding difficulty Date of Onset: 03/15/2016 Referring Provider: Aaron Rodriguez MD Rehab Precautions Office Visit from 05/01/2016 in [facility] THERAPY PT OP Rehab Precautions Precautions None Rehab Learning Style [employer] INDUSTR[employer] TEACHER OP EVAL from 05/16/2016 in [facility] SPEECH [facility]ERAP[facility] Office V isit from 05/01/2016 in [facility] CTR THERAPY PT OP Learning Style Patient's Optimum Learning Style observation, performance of task listening, reading, ob servation, performance of task Today's Treatment Start Time: 1115 Stop time: 1200 Duration: 45 minutes Timed Treatment Codes: 45 minutes # of Speech Visits to Date: 4 Pain Assessment: Pain Scale Used: NUMERIC Pain Rating Pre Assessment: 5 Location: Headache Subjective:Pt arrived to with portable O2 with NC in place. Pt reports increased fatigue following Cardio/Pulm today. Agreeable and motivated throughout.Stated increased emotional fatigue and relates this to being stressed from family dynamics. Has tried to use library fo r HEP with limited ability to access computer for practice. Is continuing to attempt 5-30 mi n of cognitive stimulation each day with worksheets. Objective/Assessment: Established HEP: Brain HQ 1x/week with library pass, written exercises 5x/week for 5-30 min Discussed use of memory strategies- increased note taking and setting timers is working wel l. Is texting important information for improved recall and as reference. Targeted visual recall, sustained attention and visual/spatial skills with recalling positi on of objects and identifying newly introduced object. Increased difficulty with verbal dist ractions as attempt to provide cues, decline noted as session progressed (maintaining attent ion difficulty) improved with verbal cues prior to beginning to ("take a picture of items in your mind" and grouping items together) Targeted speed and divided attention with identifying if colors were same Y/n with use of keyboard and rapid rate of presentation needed min- moderate cues to use self talk and posit wanda self talk as rate of presentation increased. Speed improved from 362 ms to 181 ms with c ontinued practice and use of strategies. Plan: Target immediate recall with list learning and story recall. Discuss/review underlyin g reason for deficits. Electronically signed by: Kathi Soto SPEECH PATHO, 06/21/2016 13:54 Patient Name: Rosario Malik/: 1965/ docum ented [...] | | | | | | [place] [address] | | | | | | [phone] | | | | | | | | +--------+---------+ + + + | 03/01/ | Office | Pulmonology | Mukul Clark MD | | | 2020 | Visit | | [address] | | | | | | [place] | | | | | | [address] | | | | | | | | +--------+---------+ + + + documented as of this encounter Visit Diagnoses + + | Diagnosis | + + | Impaired memory - Primary Memory loss | + + | Concussion with brief (less than one hour) loss of consciousness Concussion with loss | | of consciousness from 31 to 59 minutes | + + | Visuospatial deficit | + + | Word finding difficulty Other speech disturbance | + + documented in this encounter
--- OUTSIDE RECORDS SUMMARY | ~2019-09-27 | XMS | Encounter Summary ---
Demographics + + + | Address | [address] | | | [place] [address] | + + + | Home Phone [...] Providers + +------+ + | Care Concrete Mason Name | Role | Phone | + [...] Rehabilitatio | headache | MD Need | [place] | | | | n | [address] | updated | [place], | | | | | (ICD-9-CM) - | address | [place] [address] | | | | | Migraine | | Phone: | | | | | headache | | [phone] | | | | | Procedures | | Fax: | | | | | pt eval | | [phone] | | | | | (tosin) | [...] Need | | | | | | ([facility]LY [facility]) | updated | | | | | [...] Pituitary | Shashi Witt, | [address] [place] | | | | | adenoma | MD Need | [place], | | | | | (FORM[facility]LY [facility]) | updated | [place] | | | | | Procedures | address | [address] | | | | | MRI Brain w | | Phone: | | | | | wo Contrast | | [phone] | | | | | | | Fax: | | | | | | | [phone] | +--------+--------+ + + + + Reason for Visit + + + | Reason | Comments | + + + | Follow-up | headaches | + + + Encounter Details +--------+---------+ + + + | Date | Type | Department | Care Team | Description | +--------+---------+ + + + | 05/23/ | Office | [facility] | Shashi Segovia | Headache (Primary | | 2014 | Visit | NEUROLOGY ADRIANA Witt MD Need updated | Dx); Migraine | | | | [address], | address | headache; 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 Do not take your medicine more often than directed. Talk to your platen press operator apprentice regarding the use of this medicine in [...] should report to your doctor or health lead caregiver as soon as p ossible: allergic reactions [...] attention (report to your doctor or health lead caregiver if they continue or are bothersome): drowsiness dry mouth feeling warm, flushing, or redness of the face headache muscle cramps, pain nausea, vomiting unusually weak or tired This list may not describe all possible side effects. Call your doctor for medical advice a bout side effects. You may report side effects to FDA at 4-453-FLS-4229. Where should I keep my medicine? Keep [...] t from the original. Shashi Segovia MD [address] [place] [address], [address] [place] [address] Neurology Outpatient ProgressNote Patient ID: Ms. Malik [...] [facility]) 10/28/2012 Overview: Managed by [facility] along with hypothyroidism Osteoarthritis Tachycardia Asthma Emphysema [...] months. Please send order to [facility]. Respiratory Therapy Supplies MISC (Taking) Change CPAP back to 11-14 cm H2O. All necessar y supplies. No oxygen bleed in. Diagnosis Code(s)327.23. Length of Need: Lifetime. Please se nd order to [facility]. This is not a new order, [...] stud. - Patient no longer followed at [facility] endocrine. Will refer to local machining supervisor. Follow up in neurology in 1 month [...] [place] | | | | | | [address] | | | | | | | | +--------+---------+ + + + | 11/24/ | Office | Cardiology | [place], | | | 2019 | Visit | | SINDHU Erickson [address] | | | | | | [place], | | | | | | [place] [address] | | | | | | [phone] | | | | | | | | +--------+---------+ + + + | 03/01/ | Office | Pulmonology | Mukul Clark MD | | | 2020 | Visit | | [address] | | | | | | [place] | | | | | | [address] | | | | | | | [...] COMPARISON: 2009 and 2010 | [facility] | | TECHNIQUE: Multiplanar, multisequence imaging of the brain was | MEDICAL [facility]ENTER | | performed in the 1.5 T MR scanner before and after the uneventful | - IMAGING | | administration of 10 mL of Gadavist. Dedicated small llico-zy-mwkd | | | thin section imaging through [...] 10 mL ofGadavist. | | Dedicated small tqtid-kp-zzuy thin section imaging through thepituitary region before [...] | [address] | [place] | [phone] | | [facility] | | [address] | | | - IMAGING | | [...]
--- OUTSIDE RECORDS SUMMARY | ~2019-09-27 | XMS | Encounter Summary ---
Demographics + + + | Address | [address] | | | [place] [address] | + + + | Home Phone [...] | | + + +---------+ + | aVhe Khan | ECON | Unknown | | + + +---------+ + Care Team Providers + +------+ + | Care Health Education Assistant Name | Role | Phone | [...] CARDIOLOGY [address] | MD [address] | Dx) | | | | [place], | [place], | | | | | [place] [address] | [place] [address] | | | | | [phone] | [phone] | | | | | | | [...] | | | | | | [place] [address] | | | | | | [phone] | | | | | | | | +--------+---------+ + + + | 03/01/ | Office | Pulmonology | Mukul Clark MD | | | 2020 | Visit | | [address] | | | | | | [place] | | | | | | [address] | | | | | | | | +--------+---------+ + + + documented as of this encounter Visit Diagnoses + + | Diagnosis | + + | Tachycardia - Primary Tachycardia, unspecified | + + documented in this encounter
--- OUTSIDE RECORDS SUMMARY | ~2019-09-27 | XMS | Encounter Summary ---
Demographics + + + | Address | [address] | | | [place] [address] | + + + | Home Phone [...] Providers + +------+ + | Care Social Services Technician Name | Role | Phone | [...] [address] | | | | | [place], | [place], | | | | | [place] [address] | [place] [address] | | | | | [phone] | [phone] | | | | | | | [...] | | | | | | [place] [address] | | | | | | [phone] | | | | | | | | +--------+---------+ + + + | 03/01/ | Office | Pulmonology | Mukul Clark MD | | | 2020 | Visit | | [address] | | | | | | [place] | | | | | | [address] | | | | | | | | +--------+---------+ + + + documented as of this encounter Visit Diagnoses Not on filedocumented in this encounter"
--- OUTSIDE RECORDS SUMMARY | ~2019-09-27 | XMS | Encounter Summary ---
Demographics + + + | Address | [address] | | | [place] [address] | + + + | Home Phone [...] + +------+ + | Care Automobile Service Advisor Name | Role | Phone | + +------+ + PCP | Unavailable | + +------+ + Encounter Details +--------+ + + + + | Date | Type | Department | Care Team | Description | +--------+ + + + + | 11/27/ | Hospital | [facility] | Ozzy Delcid, | | | 2009 - | Encounter | MED CTR OP REHAB | [address] | | | | | [address] [place] | [address] [place], | | | 12/24/ | | [place] [address] | [place] [address] | | | 2009 | | [phone] | [phone] | | | | | | | [...] | | | | | | [place] [address] | | | | | | [phone] | | | | | | | | +--------+---------+ + + + | 03/01/ | Office | Pulmonology | Mukul Clark MD | | | 2020 | Visit | | [address] | | | | | | [place] | | | | | | [address] | | | | | | | | +--------+---------+ + + + documented as of this encounter Visit Diagnoses Not on filedocumented in this encounter"
--- OUTSIDE RECORDS SUMMARY | ~2019-09-27 | XMS | Encounter Summary ---
Demographics + + + | Address | [address] | | | [place] [address] | + + + | Home Phone [...] Providers + +------+ + | Care Railway Signal Electrician Name | Role | Phone | [...] MED CTR CARDIAC | MD [address] | unspecified | | | | REHABILITATION [address] | [place], | emphysema type (HCC) | | | | [address] [place] | [place] [address] | (Primary Dx); | | | | [place] [address] | [phone] | Chronic obstructive | | | | [phone] | | pulmonary disease, | | | [...] | | | | | | [place] [address] | | | | | | [phone] | | | | | | | | +--------+---------+ + + + | 03/01/ | Office | Pulmonology | Mukul Clark MD | | | 2020 | Visit | | [address] | | | | | | [place] [facility] | | | | | | [address] | | | | | | | [...]
--- OUTSIDE RECORDS SUMMARY | ~2019-09-27 | XMS | Encounter Summary ---
Demographics + + + | Address | [address] | | | [place] [address] | + + + | Home Phone [...] + + | 02/04/ | Refill | [facility] | Mukul Clark MD | Medication Refill | | 2019 | | PULMONOLOGY [address] | | | | | [address] | [place], [place] | | | | | [place], [place] | [address] | | | | | [address] | | | | | | [phone] | | | +--------+--------+ + + + [...] [place] | | | | | | [address] | | | | | | | | +--------+---------+ + + + | 11/24/ | Office | Cardiology | [place] | | | 2019 | Visit | | SINDHU Erickson [address] | | | | | | [place], | | | | | | [place] [address] | | | | | | [phone] | | | | | | | | +--------+---------+ + + + | 03/01/ | Office | Pulmonology | Mukul Clark MD | | | 2020 | Visit | | [address] | | | | | | [place] | | | | | | [address] | | | | | | | | +--------+---------+ + + + documented as of this encounter Visit Diagnoses + + | Diagnosis | + + | Centrilobular emphysema (HCC) - Primary | + + documented in this encounter"
--- OUTSIDE RECORDS SUMMARY | ~2019-09-27 | XMS | Encounter Summary ---
Demographics + + + | Address | [address] | | | [place] [address] | + + + | Home Phone [...] Team Providers + +------+ + | Care Diving Instructor Name | Role | Phone | [...] | CARDIOLOGY [address] | [address] | (Primary Dx) | | | | [place], | [place], | | | | | [place] [address] | [place] [address] | | | | | [phone] | [phone] | | | | | | | [...] encounter Progress Notes Jared Mcdonough MD - 03/17/2014 10:49 AM PSTFormatting of [...] mouth Daily. Respiratory Therapy Supplies [facility] Incentive spirometer. Please provide instructions in use. Dx: 848.8 MADELEINE: 3 months 1 each 99 Respiratory Therapy Supplies [facility] Please provide patient with necessary CPAP supplies [...] Need: Lifetime. Please send orde r to [facility]. This is not a [...] She is in a class II of [place] [employer] functi onal class. There is [...] and ventricular function don e at the [facility]. LVEF 78%. C. Holter Monitor 08/16/13 [...] months. Electronically signed by: Jared Mcdonough MD [facility] 03/17/2014 Portions of this chart may have been created with [employer] voice recognition software. Occasi onal wrong-word or [...] | | | | | | [place] [address] | | | | | | [phone] | | | | | | | | +--------+---------+ + + + | 03/01/ | Office | Pulmonology | Mukul Clark MD | | | 2020 | Visit | | [address] | | | | | | [place] | | | | | | [address] | | | | | | | | +--------+---------+ + + + documented as of this encounter Visit Diagnoses + + | Diagnosis | + + | Other chest pain - Primary | + + documented in this encounter
--- OUTSIDE RECORDS SUMMARY | ~2019-09-27 | XMS | Encounter Summary ---
Demographics + + + | Address | [address] | | | [place] [address] | + + + | Home Phone [...] Providers + +------+ + | Care Supervisor Of Guidance And Testing Name | Role | Phone | + +------+ + | Juan Cherry DO | PCP | | + +------+ + Encounter Details +--------+ + + + + | Date | Type | Department | Care Team | Description | +--------+ + + + + | 02/28/ | Hospital | [facility] | Jared Mcdonough, | Other chest pain | | 2015 | Encounter | MED CTR CV INTRA OP | MD [address] | | | | | [address] | [place], | | | | | [place], [place] | [place] [address] | | | | | [address] | [phone] | | | | | [phone] | | | +--------+ + + + [...] | | | | | order to [facility]. | | | | | + [...] | | | | | | | [facility]. | | | | | | | [...] mouth | | 0 | 11/07/19 | 01/29/201 | | 50 mg tablet | 4 [...] ASA 2 Typical airway Georgina Lorenzana AR COLD WORKING INSPECTOR - 02/22/2014 9:52 AM PST PATIENT NAME: [...] mg by mouth Daily. Respiratory Therapy Supplies [facility] Incentive spirometer. Please provide instructions in use. Dx: 848.8 MADELEINE: 3 months 1 each 99 Respiratory Therapy Supplies [facility] Please provide patient with necessary CPAP supplies ( she did not specify, okay to send order as appropriate) Diagnosis Code(s)327.23 . Length of Need 99 months. Please send order to [facility]. 1 each 0 Respiratory Therapy Supplies MISC Change CPAP back to 11-14 cm H2O. All necessary suppl ies. No oxygen bleed in. Diagnosis Code(s)327.23. Length of Need: Lifetime. Please send orde r to [facility]. This is [...] She is in a class II-III of [place] [employer] Associ ation functional class. There is [...] ventricular function don e at the [facility]. LVEF 78%. C. Holter Monitor [...] this chart may have been created with [employer] voice recognition software. Occasi onal wrong-word [...] Rosario Malik, (1965) DATE OF PROCEDURE: 02/28/2014 SUPERVISOR FUNCTIONAL TESTING: Jared Mcdonough MD PROCEDURES PERFORMED: Coronary Angiography [...] Notes Plan of Care - [facility] - 03/01/2014 12:00 AM PST iscellaneous - [facility] - 03/01/2014 12:00 AM PSTElec tronically signed by Rolando Pozo at 03/01/2014 1:58 PM PSTMiscellanebrian - [facility] - 03/01/2014 12:00 AM PST do [...] [place] | | | | | | [id number] | | | | | | | | +--------+---------+ + + + | 11/24/ | Office | Cardiology | [place] | | | 2019 | Visit | | SINDHU Erickson [address] | | | | | | [place], | | | | | | [place] [address] | | | | | | [phone] | | | | | | | | +--------+---------+ + + + | 03/01/ | Office | Pulmonology | Mukul Clark MD | | | 2020 | Visit | | [address] | | | | | | [place] | | | | | | [address] | | | | | | | [...] Rosario Malik, (1965) MEDICAL RECORD NUMBER: | [facility] | | [id number] DATE OF PROCEDURE: 02/28/2014 SUPERVISOR FUNCTIONAL TESTING: | - IMAGING | | Jared Mcdonough [...] Malik, (1965) OF | | PROCEDURE: 02[facility]28/[facility] REPRESENTATIVE: Jared Mcdonough MD PROCEDURES | | PERFORMED:Coronary [...] [address] | [place] | [phone] | | [facility] | | [address] | | | - IMAGING | | [...] [facility] | | | | | | SThCris CORONEL | | | | | | [...] | non- | FILTRATION | mL/min/1.73m2 | [facility] | | | Czech | RATE,ESTIMATED | | MEDICAL | | | | mL/min/1.95c3Cazj than | | CENTER - | | [...] + | [facility] | [address] | [place] | [phone] | | [facility] | | [address] | | | - LABORATORY | | | | + + + + + | [address] | [address] | [place] | | | [facility] | | [id number] | | | - LABORATORY | | [...]
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
--- OUTSIDE RECORDS SUMMARY | ~2019-09-27 | XMS | Encounter Summary ---
Demographics + + + | Address | [address] | | | [place] [address] | + + + | Home Phone [...] Team Providers + +------+ + | Care Medical Management Specialist Name | Role | Phone | [...] Provider Unknown | | | | | [place], [place] | [phone] | | | | | [address] | | | | | | [phone] | | | +--------+ + + + [...] [place] | | | | | | [address] | | | | | | | | +--------+---------+ + + + | 11/24/ | Office | Cardiology | [place], | | | 2019 | Visit | | SINDHU Erickson [address] | | | | | | [place] | | | | | | [place] [address] | | | | | | [phone] | | | | | | | | +--------+---------+ + + + | 03/01/ | Office | Pulmonology | Mukul Clark MD | | | 2020 | Visit | | [address] | | | | | | [place] | | | | | | [address] | | | | | | | [...]
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
--- OUTSIDE RECORDS SUMMARY | ~2019-09-27 | XMS | Encounter Summary ---
Demographics + + + | Address | [address] | | | [place] [address] | + + + | Home Phone [...] Providers + +------+ + | Care Sales And Support Center Agent Name | Role | Phone | + +------+ + PCP | Unavailable | + +------+ + Encounter Details +--------+ + + + + | Date | Type | Department | Care Team | Description | +--------+ + + + + | 02/27/ | Hospital | [facility] | Ozzy Delcid, | | | 2010 | Encounter | MED CTR XRAY [address] | [address] | | | | | [place] | [address] [place], | | | | | [place] [address] | [place] [address] | | | | | [phone] | [phone] | | | | | | | [...] [place] | | | | | | [address] | | | | | | | | +--------+---------+ + + + | 11/24/ | Office | Cardiology | [place], | | | 2019 | Visit | | SINDHU Erickson [address] | | | | | | [place] | | | | | | [place] [address] | | | | | | [phone] | | | | | | | | +--------+---------+ + + + | 03/01/ | Office | Pulmonology | Mukul Clark MD | | | 2020 | Visit | | [address] | | | | | | [place] | | | | | | [address] | | | | | | | | +--------+---------+ + + + documented as of this encounter Visit Diagnoses Not on filedocumented in this encounter"
--- OUTSIDE RECORDS SUMMARY | ~2019-09-27 | XMS | Encounter Summary ---
Demographics + + + | Address | [address] | | | [place] [address] | + + + | Home Phone [...] Team Providers + +------+ + | Care Homemaking Rehabilitation Consultant Name | Role | Phone | [...] | RN | | | | | [place], | | | | | | [place] [address] | | | | | | [phone] | | | +--------+ + + + [...] [place] | | | | | | [address] | | | | | | | | +--------+---------+ + + + | 11/24/ | Office | Cardiology | [place], | | | 2020 | Visit | | SINDHU Erickson [address] | | | | | | [place] | | | | | | [place] [address] | | | | | | [phone] | | | | | | | | +--------+---------+ + + + | 03/01/ | Office | Pulmonology | Mukul Clark MD | | | 2020 | Visit | | [address] | | | | | | [place] | | | | | | [address] | | | | | | | | +--------+---------+ + + + documented as of this encounter Visit Diagnoses Not on filedocumented in this encounter"
--- OUTSIDE RECORDS SUMMARY | ~2019-09-27 | XMS | Encounter Summary ---
Demographics + + + | Address | [address] | | | [place] [address] | + + + | Home Phone [...] Organization | [facility] | | | and [...] Providers + +------+ + | Care Motor Builder Winder Name | Role | Phone | [...] + + | 05/28/ | Office | [facility] | Kade Hoffman MD | COPD exacerbation | | 2013 | Visit | CARE [address] | [address] | ([facility]) (Primary Dx) | | | | [place] | [place] [address] | | | | | [address] | [phone] | | | | | [phone] | | | +--------+---------+ + + + [...] prednisone, add zithromax FU 3 days with elevator installer. documented in this enc ounter Miscellaneous Notes Plan of Care - [facility] - 05/28/2013 12:00 AM PDT lan of Care - [facility] - 05/28/2013 12:00 AM PDTElect ronically signed by Rolando Pozo at 06/02/2013 3:20 PM PDTdocumented in this encounter Plan of [...] [place] | | | | | | [address] | | | | | | | | +--------+---------+ + + + | 11/24/ | Office | Cardiology | [place], | | | 2019 | Visit | | SINDHU Erickson [address] | | | | | | [place], | | | | | | [place] [address] | | | | | | [phone] | | | | | | | | +--------+---------+ + + + | 03/01/ | Office | Pulmonology | Mukul Clark MD | | | 2020 | Visit | | [address] | | | | | | [place] | | | | | | [address] | | | | | | | | +--------+---------+ + + + documented as of this encounter Visit Diagnoses + + | Diagnosis | + + | COPD exacerbation (HCC) - Primary Obstructive chronic bronchitis with exacerbation | + + documented in this encounter
--- OUTSIDE RECORDS SUMMARY | ~2019-09-27 | XMS | Encounter Summary ---
Demographics + + + | Address | [address] | | | [place] [address] | + + + | Home Phone [...] Team Providers + +------+ + | Care Licensed Staff Mft Name | Role | Phone | + [...] + + | 08/30/ | Emergency | [facility] | [place], | Tachycardia (Primary | | 2018 | | MED CTR EMERGENCY | Ozzy Kim MD [address] | Dx); Hypokalemia | | | | CENTER [address] | [address] [place] | | | | | [place] | [place] [address] | | | | | [address] | [phone] | | | | | [phone] | | | +--------+ + + + [...] might be differe nt from the original. [facility] Rosario Malik Emergency Department Encounter Note [address] [place] [address] PCP:Yong Cherry DO x2500 DIAGNOSIS: 1. Tachycardia 2. Hypokalemia CHIEF COMPLAINT: Chief Complaint Patient presents with Tachycardia Mode of Arrival: walk-in ED Room: ED08 [facility] Rosario Malik is a 52 y.o. [...] Note Last Updated: 10/21/2016 Echocardiogram, 08/23/2013 at [facility] shows normal systolic left ventricular and [...] Mcdonough MD. COPD (chronic obstructive pulmonary disease) ([facility]) 11/14/2011 Priority: Medium Hypothyroidism Priority: Medium [...] emphysema (HCC) Note Last Updated: 07/12/2014 PLRU [id number] Decision Migraine Allergic rhinitis 06/18/2013 Hypoxemia 04/27/2013 Sprain of chest wall 04/12/2013 Insomnia 02/22/2013 Diverticulosis 01/25/2013 Multiple personality disorder GERD (gastroesophageal reflux disease) Benign neoplasm of pituitary gland and craniopharyngeal duct (pouch) (HCC) 10/28/2012 Note Last Updated: 04/27/2013 Overview: Managed by [facility] along with hypothyroidism Status post total hysterectomy 10/20/2012 Irritable colon 10/20/2012 GARRY (obstructive sleep apnea) 05/23/2012 Preventative health care 03/11/2012 Note Last Updated: 03/11/2012 [facility] 04/12/2010 Diverticulosis Next Colonoscopy Mammo Pap Past Surgical History: Procedure Laterality Date COLONOSCOPY 03/2010 COLONOSCOPY 1995 [facility] HAMMER TOE SURGERY right sided HERNIA REPAIR 11/29/2015 [facility] [place] HIATAL HERNIA REPAIR Hiatal hernia HYSTERECTOMY KNEE SURGERY right OTHER SURGICAL HISTORY 02/28/2014 [facility] with Radial approach; Laterality: Left; Surgeon: Jared Mcdonough MD; Location: [facility] CARDIO VASCULAR LAB MILES AND BSO Ovarian cysts, not cancer TONSILLECTOMY Age 6 TURBT N/A 11/22/2015 Procedure: Cystoscopy, Hydrodistention & Bladder Biopsy; Surgeon: Andriy Amaya MD ; Location: [facility] MAIN OR WRIST SURGERY right CURRENT MEDICATIONS [...] dailyH istorical Med !! Respiratory Therapy Supplies [facility] Please provide patient with necessary CPAP supplies (s he did not specify, okay to send order as appropriate) Diagnosis Code(s)327.23 . Length of N eed 99 months. Please send order to [facility].Disp-1 each, R-0, Print !! Respiratory Therapy Supplies MISC Change CPAP back to 11-14 cm H2O. All necessary suppli es. No oxygen bleed in. Diagnosis Code(s)327.23. Length of Need: Lifetime. Please send order to [facility]. 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 (See chart for [...] Why: As needed Contact information: [address] [facility] [address] Discharge Medication List as of 08/30/2017 13:12 Administrations This Visit potassium chloride (K-DUR) ER tablet 20 mEq Admin Date 08/30/2017 Action Given Dose 20 mEq Route Oral Administered By Fanny Cooley RN sodium chloride 0.9% (NS) bolus 500 mL Admin Date 08/30/2017 Action New Bag Dose 500 mL Rate 500 mL/hr Route Intravenous Administered By Cammei Camp RN Portions of this chart were created with [employer] voice recognition software. Inadvertent so und alike substitutions may be present and are unintentional Ozzy Louis MD 08/30/17 1328 Tayler Wiley RN - 08/30/2017 11:39 AM [...] | | | | | | [place] [address] | | | | | | [phone] | | | | | | | | +--------+---------+ + + + | 03/01/ | Office | Pulmonology | Mukul Clark MD | | | 2020 | Visit | | [address] | | | | | | [place] | | | | | | [address] | | | | | | | [...] W?MRN: | | | | | | [id number] | | | [id number] | | | his | | | [...] | | | 120 | | | YNOG | | | | | | OLSWAN [...] Yong | | | DO CAMILLE Cherry QUALITY ASSURANCE LEAD: Jared Mcdonough MD | | | 48-HOUR [...] | | Signed by: Jared Mcdonough MD [facility] 09/04/2017, 10:18 | | + + + [...] ST. | [address] | [place], [place] | [phone] | | [facility] | | [address] | | | - LABORATORY | | [...] | | | | | | [employer] | | | | | [...] + | [facility] | [address] | [place] | [phone] | | [facility] | | [address] | | | - LABORATORY | | [...] | non- | FILTRATION | mL/min/1.73m2 | [facility] | | | [place] | RATE,ESTIMATED | | MEDICAL | | | | mL/min/1.03t2Htzs than | | CENTER - | | [...] | | | | | mg/dL | [facility] | | | | | | MEDICAL [...] [address] | [place] | [phone] | | [facility] | | [address] | | | - LABORATORY | | [...] + | [facility] | [address] | [place] | [phone] | | [facility] | | [address] | | | - LABORATORY | | [...] [address] | [place] | [phone] | | [facility] | | [address] | | | - LABORATORY | | [...] [address] | [place] | [phone] | | [facility] | | [address] | | | - LABORATORY | | [...] [address] | [place] | [phone] | | [facility] | | [address] | | | - LABORATORY | | [...] + | [facility] | [address] | [place] | [phone] | | [facility] | | [address] | | | - LABORATORY | | [...] [address] | [place] | [phone] | | [facility] | | [address] | | | - LABORATORY | | [...] [address] | [place] | [phone] | | [facility] | | [address] | | | - LABORATORY | | [...] | | | | | RAFA PAUL ([id number]) on | | | | | | [...]
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
--- OUTSIDE RECORDS SUMMARY | ~2019-09-27 | XMS | Encounter Summary ---
Demographics + + + | Address | [address] | | | [place] [address] | + + + | Home Phone [...] Providers + +------+ + | Care Ferry Pilot Name | Role | Phone | + +------+ + | Juan Cherry DO | PCP | | + +------+ + Encounter Details +--------+ + + + + | Date | Type | Department | Care Team | Description | +--------+ + + + + | 11/08/ | Hospital | [facility] | Conversion | Asthma, moderate | | 2015 | Encounter | [facility] [address] | Transaction, | persistent, | | | | [address] | Provider Unknown | uncomplicated | | | | [place], [place] | [phone] | | | | | [address] | | | | | | [phone] | | | +--------+ + + + [...] | | | order to [facility]. | | | | | + [...] | | send order to [facility] | | | | | [...] [place] | | | | | | [address] | | | | | | | | +--------+---------+ + + + | 11/24/ | Office | Cardiology | [place], | | | 2019 | Visit | | SINDHU Erickson [address] | | | | | | [place], | | | | | | [place] [address] | | | | | | [phone] | | | | | | | | +--------+---------+ + + + | 03/01/ | Office | Pulmonology | Mukul Clark MD | | | 2020 | Visit | | [address] | | | | | | [place] | | | | | | [address] | | | | | | | [...] Reed, Rad Conversion - 10/09/2018 12:59 AM PDT JADYN Cj VZBUDZ33 years | | FemaleCT CHEST WO CONTRAST11/08/2014 [...] lung nodule measuring 4 mm in diameter (04/21) is unchanged. | | | |No lung [...]
--- OUTSIDE RECORDS SUMMARY | ~2019-09-27 | XMS | Encounter Summary ---
Demographics + + + | Address | [address] | | | [place] [address] | + + + | Home Phone [...] | + + +---------+ + | Juaan Sianz | ECON | Unknown | | + + +---------+ + | Vahe Khan | ECON | Unknown | | + + +---------+ + Care Team Providers + +------+ + | Care Curriculum Coach Name | Role | Phone | + +------+ + PCP | Unavailable | + +------+ + Encounter Details +--------+ + + + + | Date | Type | Department | Care Team | Description | +--------+ + + + + | 05/01/ | Hospital | [facility] | Alexi Guaman, | | | 2010 | Encounter | MED CTR EMERGENCY | [address] | | | | | CENTER [address] | [place] | | | | | [place] | [address] | | | | | [address] | | | | | | [phone] | | | +--------+ + + + [...] documented as of this encounter ED Notes Alexi Guaman MD - 05/01/2010 5:32 PM PSTDATE: 05/01/2010 CHIEF COMPLAINT: Dizziness and weakness. HISTORY OF PRESENT ILLNESS: Rosario is a 45-year-old female with a history of pituitary t umor which resulted in adrenal insufficiency. She said that she started feeling dizzy and shaky earlie r, and tho ught she was going into adrenal crisis. She took an extra hydrocortisone dose and came to the ER for an extra shot of hydrocortisone. She has had no fever, cough, chills, or other associated symptoms with it. She has had several episodes like this in the past. She has an appointment with an curriculum coach on Friday. She said, she is having an extens wanda workup being done in the [facility]. She has been doing okay, and otherwise has not had any other symptoms. PAST MEDICAL HISTORY: Significant for a pituitary tumor, adrenal insufficiency, fibromyalg ia, and diverticulitis. PAST SURGICAL HISTORY: Significant for hernia surgery. SOCIAL HISTORY: She smokes. PHYSICAL EXAM GENERAL: This is a 45-year-old female in no apparent distress. INITIAL VITALS: BP 106/40, pulse 87, respirations 16, temperature 99, saturation is 97% on room air. HEENT: Pupils equally round and reactive to light. Mucous membranes are moist. Nasal passa ges are cl ear. Trachea is midline. CHEST: She has bilateral expiratory wheezes throughout both lung rosado. CARDIOVASCULAR: Rate and rhythm is regular. ABDOMEN: Nontender, nondistended. EXTREMITIES: No edema. SKIN: No rash. EMERGENCY DEPARTMENT COURSE / TEST REVIEW: She had a CBC, which was normal. She had a bas ic metabolic panel, which was normal. She had a chest x-ray, which is negative for pneumonia , pneumothorax, widened mediastinum, pleural effusion, or other cause of her symptoms. She received a liter of saline, 100 of hydrocortisone, and 4 of Zofran with complete resolu tion of he r symptoms. ASSESSMENT: This is a 45-year-old female with generalized weakness as well as some lighthe adedness. She is probably not in adrenal crisis, but she was given hydrocortisone to be safe, and told to follow up with her curriculum coach, and return if she gets worse. DIAGNOSIS: DIZZINESS AND WEAKNESS. DISPOSITION: Home. DICTATED BY: Alexi Guaman M.D. Emergency Medicine JOB #: [id number] EXT JOB #:[id number] <Electronicall y Signed by Alexi Guaman MD> 05/02/10 1608 documented in this encounter Plan of Treatment [...] W | | | | | | [address] | | | | | [place] [address] | | | | | | [phone] | | | | | | | | +--------+---------+ + + + | 03/01/ | Office | Pulmonology | Mukul Clark MD | | | 2020 | Visit | | [address] | | | | | | [place] | | | | | | [address] | | | | | | | [...] + + + | White Blood | 7.9 | 4.0 - 11.0 K/uL | [facility] | | [facility] | | | [facility] | | | | | [facility] | | | | | [facility] - | | | | | | LABORATORY | | + +-------+ + + + | Red Blood | 4.72 | 3.70 - 5.20 | [...] [address] | [place] | [phone] | | [facility] | | [address] | | | - LABORATORY | | | | + + + + + | [facility] | [address] | [place] | | | [facility] | | [address] | | | - LABORATORY | [...] 100 | 70 - 109 mg/dL | [facility] | | | | | | SThCris [...] + | [facility] | [address] | [place], [place] | [phone] | | [facility] | | [address] | | | - LABORATORY | | | | + + + + + | [facility] | [address] | [place] | | | [facility] | | [id number] [place] [address] | | | - LABORATORY | | | | + + + + + XR Chest PA or AP (05/01/2010 5:32 PM PST) + + | Specimen | + + | | + + + + + | Narrative | Performed At | + + + | [facility] | [facility] | | [address] [facility] | [facility] | | PORTABLE CHEST, 05/01/2010 AT | [facility] | | 1806 CLINICAL HISTORY: DIZZINESS. COMPARISON: 02/27/2010 | | [...] Transcribed Date/Time: | | | 05/02/2010 11:54 Radiology Teacher: <Electronically Signed | | | by Cesar Ren MD> 05/02/10 2143 | | + + + + ---------+ | Procedure Note | + ---------+ | Reed, Rad Conversion - 04/02/2013 2:24 PM [facility] | | Diagnostic Imaging Department [address] [place] [address] | | PORTABLE CHEST, 05/01/2010 AT 1807 [...] 11:04 Transcribed Date/Time: 05/02/2010 11:54 | | Radiology Teacher: <Electronically Signed by Cesar Ren MD> 05/02/10 2978 | |CLINICAL HISTORY: DIZZINESS. | | | [...] 11:04 | |Transcribed Date/Time: 05/02/2010 11:54 | |Radiology Teacher: | |<Electronically Signed by Cesar Ren MD> 05/02/10 1555 | + ---------+ + +---------+ + + | Performing | Address | City/State/Zipcode | Phone Number | | Organization | | | | + +---------+ + + | [place] | | | | | [facility] | | | | + +---------+ + + documented in this encounter Visit Diagnoses Not on filedocumented in this encounter"
--- OUTSIDE RECORDS SUMMARY | ~2019-09-27 | XMS | Encounter Summary ---
Demographics + + + | Address | [address] | | | [place] [address] | + + + | Home Phone [...] Providers + +------+ + | Care Title Camera Operator Name | Role | Phone | [...] [address] | | | | | [place], | [place], | | | | | [place] [address] | [place] [address] | | | | | [phone] | [phone] | | | | | | | [...] | | | | | | [place] [address] | | | | | | [phone] | | | | | | | | +--------+---------+ + + + | 03/01/ | Office | Pulmonology | Mukul Clark MD | | | 2020 | Visit | | [address] | | | | | | [place] | | | | | | [address] | | | | | | | | +--------+---------+ + + + documented as of this encounter Visit Diagnoses Not on filedocumented in this encounter"
--- OUTSIDE RECORDS SUMMARY | ~2019-09-27 | XMS | Encounter Summary ---
Demographics + + + | Address | [address] | | | [place] [address] | + + + | Home Phone [...] Team Providers + +------+ + | Care Luggage Repairer Name | Role | Phone | [...] + + | 06/23/ | Hospital | [facility] | [place], | Racing heart beat | | 2018 | Encounter | MED CTR NUCLEAR | SINDHU Erickson [address] | | | | | MEDICINE [address] | [place], | | | | | [place], | [place] [address] | | | | | [place] [address] | [phone] | | | | | [phone] | | | +--------+ + + + [...] | | | | | ([facility]) | | | | | | [...] | | | | | ([facility]) | | | | | | [...] Follow package | 21 | 0 | 05/31/19 | | | (MEDROL DOSEPAK) 4 | [...] encounter Procedure Notes Jared Mcdonough MD - 06/27/2017 1:19 PM PDTPATIENT NAME: Rosario Malik : 1965: AGE: 52 y.o. PRIMARY CARE: DO CAMILLE Guillaume MERCHANDISE PICKUP/RECEIVING ASSOCIATE: Jared Mcdonough MD 48-HOUR HOLTER MONITOR REPORT DATE: 06/27/2017 IMPRESSION: 06/27/2017, 12:32 . 1) The predominant rhythm is sinus with HR between 51 to 174 bpm. The average HR was 74 bpm during the 47:58 hour recording. 2) There were very rare PVC's (53 total, mean 1.1/hr) with 1 couplet and no triplets. 3) There were occasional PAC's (2261 total, mean 47.1/hr). 4) There were 364 episodes of sinus bradycardia. The longest was 159 beats on Friday 08:41. The minimum rate was 48 bpm on Friday 05:21. 5) There were 59 episodes of sinus tachycardia. The longest was 749 beats on Friday 1 5:55. The maximum rate was 180 bpm on Friday 15:41 (mowing the lawn from 15:30 to 15:54) 6) Diary was returned with no rhythm changes corresponding with symptoms noted except for tachycardia when pt mowed the lawn. Signed by: Jared Mcdonough MD [facility] Electronically signed by Jared Mcdonough MD at 06/27 1:21 PM PDTdocumented in this encounter Plan of Treatment +--------+---------+ + + + | Date | Type | Specialty | Care Team | Description | +--------+---------+ + + + | 09/27/ | Office | Sleep Medicine | Meghan Garcia MD | | | 2019 | Visit | | [address] | | | | | | [place] | | | | | | [address] | | | | | | | | +--------+---------+ + + + | 11/24/ | Office | Cardiology | [place], | | | 2019 | Visit | | SINDHU Erickson [address] | | | | | | [place] | | | | | | [place] [address] | | | | | | [phone] | | | | | | | | +--------+---------+ + + + | 03/01/ | Office | Pulmonology | Mukul Clark MD | | | 2020 | Visit | | [address] | | | | | | [place] | | | | | | [address] | | | | | | | | +--------+---------+ + + + documented as of this encounter Visit Diagnoses + + | Diagnosis | + + | Racing heart beat Tachycardia, unspecified | + + documented in this encounter"
--- OUTSIDE RECORDS SUMMARY | ~2019-09-27 | XMS | Encounter Summary ---
Demographics + + + | Address | [address] | | | [place] [address] | + + + | Home Phone [...] Providers + +------+ + | Care Control Systems Specialist Name | Role | Phone | [...] + + | 07/24/ | Clinical | [facility] | Andriy Weber | Bladder pain | | 2018 | Support | [address] | MD [address] | (Primary Dx) | | | | [place] | [place] | | | | | [address] | [facility] [place] [address] | | | | | [phone] | [phone] | | | | | | | [...] documented as of this encounter Progress Notes Loraine Hawkins RN - 07/24/2017 10:00 AM PDTPatient presents [...] and Dr. Weber's order. Patient remained in e office for 20 minutes prior to voiding. [...] [place] | | | | | | [address] | | | | | | | | +--------+---------+ + + + | 11/24/ | Office | Cardiology | [place], | | | 2019 | Visit | | SINDHU Erickson [address] | | | | | | [place], | | | | | | [place] [address] | | | | | | [phone] | | | | | | | | +--------+---------+ + + + | 03/01/ | Office | Pulmonology | Mukul Clark MD | | | 2020 | Visit | | [address] | | | | | | [place] | | | | | | [address] | | | | | | | [...] 10:58 | | | | | on Fri06/25/17 at 1230, For 4 | | AM [...]
--- OUTSIDE RECORDS SUMMARY | ~2019-09-27 | XMS | Encounter Summary ---
Demographics + + + | Address | [address] | | | [place] [address] | + + + | Home Phone [...] Team Providers + +------+ + | Care Crate Opener Name | Role | Phone | + [...] Cert [place] | | | | | [place], | | | | | | [place] [address] | | | | | | [phone] | | | +--------+ + + + [...] | | | | | | [place] [address] | | | | | | [phone] | | | | | | | | +--------+---------+ + + + | 03/01/ | Office | Pulmonology | Mukul Clark MD | | | 2020 | Visit | | [address] | | | | | | [place] | | | | | | [address] | | | | | | | | +--------+---------+ + + + documented as of this encounter Visit Diagnoses Not on filedocumented in this encounter"
--- OUTSIDE RECORDS SUMMARY | ~2019-09-27 | XMS | Encounter Summary ---
Demographics + + + | Address | [address] | | | [place] [address] | + + + | Home Phone [...] Providers + +------+ + | Care Roll Sheeting Cutter Name | Role | Phone | [...] | | | | [facility] | [address] | [address] | | | | | EXERCISE | [place], | [place] | | | | | | [place] [address] | [place], [place] | | | | | | Phone: | [address] | | | | | | [phone] | Phone: | | | | | | Fax: | [phone] | | | | | | [phone] | Fax: | | | | | | | [phone] | +--------+--------+ + + + + Encounter Details +--------+---------+ + + + | Date | Type | Department | Care Team | Description | +--------+---------+ + + + | 07/09/ | Office | [facility] | Jared Mcdonough, | Chronic obstructive | | 2017 | Visit | MED CTR CARDIAC | MD Migdalia King | pulmonary disease, | | | | [facility] [address] [place], | unspecified COPD | | | | [address] [place] | [place] [address] | type (HCC) (Primary | | | | [place] [address] | [phone] | Dx); Pulmonary | | | | [phone] | | emphysema, | | | | [...] | | | | | | [place] [address] | | | | | | [phone] | | | | | | | | +--------+---------+ + + + | 03/01/ | Office | Pulmonology | Mukul Clark MD | | | 2020 | Visit | | [address] | | | | | | [place] | | | | | | [address] | | | | | | | | +--------+---------+ + + + documented as of this encounter Visit Diagnoses + + | Diagnosis | + + | Chronic obstructive pulmonary disease, unspecified COPD type (HCC) - Primary | + + | Pulmonary emphysema, unspecified emphysema type (HCC) | + + documented in this encounter"
--- OUTSIDE RECORDS SUMMARY | ~2019-09-27 | XMS | Encounter Summary ---
Demographics + + + | Address | [address] | | | [place] [address] | + + + | Home Phone [...] Team Providers + +------+ + | Care Optometry Doctor Name | Role | Phone | + +------+ + | Juan Cherry DO | PCP | | + +------+ + Encounter Details +--------+ + + + + | Date | Type | Department | Care Team | Description | +--------+ + + + + | 06/27/ | Documentati | [facility] | Charles Kathi Gabino, | | | 2017 | on | MED CTR SPEECH | Speech Pathologist | | | | | THERAPY [address] | | | | | | [place], | | | | | | [place] [address] | | | | | | [phone] | | | +--------+ + + + [...] Progress Notes Kathi Soto, Speech Pathologist - 06/27/2016 11:26 AM [facility] [address] [place] [address] Cancellation/No Show Date: 06/27/2016 Patient Information Patient Name: Rosario Malik Date of : 1965 Age: 51 y.o. Reason for missed visit: cancelled- in ER last pm Phone call placed: yes - called to cx Plan: Continue POC Electronically signed by: Kathi Soto SPEECH PATHO, 06/27/2016 11:26 Patient Name: Rosario Malik/: 1965/ docum ented [...] | | | | | | [place] [address] | | | | | | [phone] | | | | | | | [...]
--- OUTSIDE RECORDS SUMMARY | ~2019-09-27 | XMS | Encounter Summary ---
Demographics + + + | Address | [address] | | | [place] [address] | + + + | Home Phone [...] Team Providers + +------+ + | Care Bricklayer Supervisor Name | Role | Phone | [...] | RN | | | | | [place], | | | | | | [place] [address] | | | | | | [phone] | | | +--------+ + + + [...] [place] | | | | | | [place] [address] | | | | | | [phone] | | | | | | | | +--------+---------+ + + + | 03/01/ | Office | Pulmonology | Mukul Clark MD | | | 2020 | Visit | | [address] | | | | | | [place] | | | | | | [phone] | | | | | | | | +--------+---------+ + + + documented as of this encounter Visit Diagnoses Not on filedocumented in this encounter"
--- OUTSIDE RECORDS SUMMARY | ~2019-09-27 | XMS | Encounter Summary ---
Demographics + + + | Address | [address] | | | [place] [address] | + + + | Home Phone [...] Providers + +------+ + | Care Parts Fabricator Name | Role | Phone | + +------+ + | Juan Cherry DO | PCP | | + +------+ + Reason for Visit + +--------+ + | Reason | Onset | Comments | | | Date | | + +--------+ + | Medication Refill | 02/15/ | | | | 2015 | | [...] [address] | | | | | [place], | [place], [place] | | | | | [place] [address] | [address] | | | | | [phone] | | | +--------+--------+ + + + [...] this encounter Miscellaneous Notes Telephone Encounter - Phoebe Yuan RN - 02/15/2015 10:11 AM PSTReceived a prescription refill request via fax for prednisone 10 mg. Take 2 tablets by mouth daily. Called patient to verify prescription. Rosario states she is no longer a patient of Dr. Sandoval. She sta jimy she will call the pharmacy to make the change. documented in this encounter Plan [...] [place] | | | | | | [address] | | | | | | | | +--------+---------+ + + + | 11/24/ | Office | Cardiology | [place], | | | 2019 | Visit | | SINDHU Erickson [address] | | | | | | [place] | | | | | | [place] [address] | | | | | | [phone] | | | | | | | | +--------+---------+ + + + | 03/01/ | Office | Pulmonology | Mukul Clark MD | | | 2020 | Visit | | [address] | | | | | | [place] | | | | | | [phone] | | | | | | | | +--------+---------+ + + + documented as of this encounter Visit Diagnoses Not on filedocumented in this encounter"
--- OUTSIDE RECORDS SUMMARY | ~2019-09-27 | XMS | Encounter Summary ---
Demographics + + + | Address | [address] | | | [place] [address] | + + + | Home Phone [...] Providers + +------+ + | Care Community Mental Health Worker Name | Role | Phone | + +------+ + | Juan Cherry DO | PCP | | + +------+ + Encounter Details +--------+ + + + + | Date | Type | Department | Care Team | Description | +--------+ + + + + | 02/28/ | Hospital | [facility] | Jared Mcdonough, | Other chest pain | | 2015 | Encounter | MED CTR CV INTRA OP | MD [address] | | | | | [address] | [address] [place], | | | | | [place], [place] | [place] [address] | | | | | [address] | [phone] | | | | | [phone] | | | +--------+ + + + [...] ASA 2 Typical airway Georgina Lorenzana AR RUGBY UNION FOOTBALLER - 02/22/2014 9:52 AM PST PATIENT NAME: [...] mg by mouth Daily. Respiratory Therapy Supplies [facility] Incentive spirometer. Please provide instructions in use. Dx: 848.8 MADELEINE: 3 months 1 each 99 Respiratory Therapy Supplies [facility] Please provide patient with necessary CPAP supplies ( she did not specify, okay to send order as appropriate) Diagnosis Code(s)327.23 . Length of Need 99 months. Please send order to [facility]. 1 each 0 Respiratory Therapy Supplies MISC [...] She is in a class II-III of [place] [employer] ation functional class. There is [...] this chart may have been created with Ohana voice recognition software. Occasi onal wrong-word or [...] Rosario Malik, (1965) DATE OF PROCEDURE: 02/28/2014 CATTLE BRANDER: Jared Mcdonough MD PROCEDURES PERFORMED: Coronary Angiography [...] Notes Plan of Care - ONBASE SCAN [facility] - 03/01/2014 12:00 AM PST iscellaneous - [facility] - 03/01/2014 12:00 AM PSTElec tronically signed by Rolando Pozo at 03/01/2014 1:58 PM PSTMiscellanebrian - O[facility] - 03/01/2014 12:00 AM PST do cumented [...] [place] | | | | | | [id number] | | | | | | | | +--------+---------+ + + + | 11/24/ | Office | Cardiology | [place] | | | 2019 | Visit | | SINDHU Erickson [address] | | | | | | [place], | | | | | | [place] [address] | | | | | | [phone] | | | | | | | | +--------+---------+ + + + | 03/01/ | Office | Pulmonology | Mukul Clark MD | | | 2020 | Visit | | [address] | | | | | | [place] | | | | | | [address] | | | | | | | [...] Rosario Malik, (1965) MEDICAL RECORD NUMBER: | [facility] | | [id number] DATE OF PROCEDURE: 02/28/2014 CATTLE BRANDER: | - IMAGING | | Jared Mcdonough [...] Malik, (1965) OF | | PROCEDURE: 02/28/2014PRIMARY INFORMATION SUPPORT PROJECT MANAGER: Jared Mcdonough MD PROCEDURES | | PERFORMED:Coronary [...] [address] | [place] | [phone] | | [facility] | | [address] | | | - IMAGING | | [...] | non- | FILTRATION | mL/min/1.73m2 | [facility] | | | Swazi | RATE,ESTIMATED | | MEDICAL | | | | mL/min/1.04i8Sezt than | | CENTER - | | [...] + | [facility] | [address] | [place] | [phone] | | [facility] | | [address] | | | - LABORATORY | | | | + + + + + | [facility] | [address] | [place] | | | [facility] | | [address] | | | - LABORATORY | | [...]
--- OUTSIDE RECORDS SUMMARY | ~2019-09-27 | XMS | Encounter Summary ---
Demographics + + + | Address | [address] | | | [place] [address] | + + + | Home Phone [...] Team Providers + +------+ + | Care Case Picker Name | Role | Phone | + +------+ + | Juan Cherry DO | PCP | | + +------+ + Reason for Visit +--------+--------+ + | Reason | Onset | Comments | | | Date | | +--------+--------+ + | Other | 05/07/ | Out of medication | | | 2018 | | +--------+--------+ + Encounter Details +--------+ + + + + | Date | Type | Department | Care Team | Description | +--------+ + + + + | 05/07/ | Telephone | [facility] | Andriy Weber | Other (Out of | | 2017 | | [address] | MD Robert [address] | medication) | | | | [place] | [place] | | | | | [address] | [place] [address] | | | | | [phone] | [phone] | | | | | | | [...] this encounter Miscellaneous Notes Telephone Encounter - Andriy Weber MD - 05/08/2017 10:23 AM PDTI have refilled her oxybutynin, and hydroxyzine for 1 month, pending her office appointment.Electronically sign ed by Andriy Weber MD at 05/08/2017 10:23 AM PDTTelephone Encounter - Nancy Dalal CMA - 05/08/2017 8:08 AM PDTOxybutynine and Hydroxyzine elephone Encounter - Nancy Dalal CMA - 05/07/2017 2:3 4 PM PDTFredericketmeghna is calling stating that she made an appt on 05/13/17 for medication refills. She has been out for 3 days now and can feel her pelvic pain is worsening. She would like t o know if she can have enough sent to her pharmacy until she is seen? [facility] onically signed by Nancy Dalal CMA at 05/07/2017 2:36 PM PDTdocumented in this encounter Plan of [...] [place] | | | | | | [address] | | | | | | | | +--------+---------+ + + + | 11/24/ | Office | Cardiology | [place], | | | 2019 | Visit | | SINDHU Erickson [address] | | | | | | [place], | | | | | | [place] [address] | | | | | | [phone] | | | | | | | | +--------+---------+ + + + | 03/01/ | Office | Pulmonology | Mukul Clark MD | | | 2020 | Visit | | [address] | | | | | | [place] | | | | | | [address] | | | | | | | | +--------+---------+ + + + documented as of this encounter Visit Diagnoses Not on filedocumented in this encounter"
--- OUTSIDE RECORDS SUMMARY | ~2019-09-27 | XMS | Encounter Summary ---
Demographics + + + | Address | [address] | | | [place] [address] | + + + | Home Phone [...] Providers + +------+ + | Care Computer Information Systems Professor Name | Role | Phone | [...] emphysema type (HCC) | | | | [place], | [address] | (Primary Dx) | | | | [place] [address] | | | | | | [phone] | | | +--------+ + + + [...] | | | | | | [place] [address] | | | | | | [phone] | | | | | | | | +--------+---------+ + + + | 03/01/ | Office | Pulmonology | Mukul Clark MD | | | 2020 | Visit | | [address] | | | | | | [place] | | | | | | [address] | | | | | | | [...] | | Romi Sandoval MD 02/29/2016 6:30[facility] | | |IMPRESSION: Spirometry is consistent with [...] Sandoval MD 02/29/2016 6:30 | | |[facility] | | + + + documented in this encounter Visit Diagnoses + + | Diagnosis | + + | Pulmonary emphysema, unspecified emphysema type (HCC) - Primary | + + documented in this encounter"
--- OUTSIDE RECORDS SUMMARY | ~2019-09-27 | XMS | Encounter Summary ---
Demographics + + + | Address | [address] | | | [place] [address] | + + + | Home Phone [...] Providers + +------+ + | Care Rn Enterostomal Name | Role | Phone | + [...] Groin pain, | MD Jared | [address] | | | | | right Hx | [address] | [place], | | | | | of coronary | [address] | [place] [address] | | | | | angiogram | [place], | Phone: | | | | | Peritoneal | [place] [address] | [phone] | | | | | bleeding | Phone: | Fax: | | | | | Procedures | [phone] | [phone] | | | | | CT Abdomen | Fax: | | | | | | Pelvis wo | [phone] | | | | | | Contrast | | | +--------+--------+ + + + + Reason for Visit +--------+--------+ + | Reason | Onset | Comments | | | Date | | +--------+--------+ + | Other | 03/07/ | cath site painful | | | 2014 | | +--------+--------+ + Encounter Details +--------+ + + + + | Date | Type | Department | Care Team | Description | +--------+ + + + + | 03/07/ | Telephone | [facility] [place] | Jared Mcdonough, | Other ([facility] site | | 2015 | | CARDIOLOGY [address] | MD [address] | painful) | | | | [address] [place], | [place], | | | | | [place] [address] | [place] [address] | | | | | [phone] | [phone] | | | | | | | [...] Telephone Encounter - Nilda Escalona RN - 03/08/2014 9:56 AM PSTPer conversation with Miryam Sanchez, CT looks fine, patient notified ...........................................Nilda Escalona RN on 03/08/2014 at 9:57 elephone Encounter - Nilda Escalona RN - 03/08/2014 8:50 AM PSTGretchen stop ped by the office to have her groin site evaluated. I asked SINDHU Shafer to take a lo ok also. There is no swelling, no bruising and she has good pulses in her foot. The pain i s directly on the angioseal site, angioseal can be palpated and feels with in normal limits. She also reports pain radiating to her back. Dr Sanchez was advised of the assessment and ad vised that we get a Pelvic CT to rule out retro peritoneal bleeding. This will be ordered f or her to be done today with a call report to Dr Sanchez. Appointment is made for today at 9:1 5 ...........................................Nilda Escalona RN on 03/08/2014 at 9:09 elephone Encounter - Nilda Escalona RN - 03/07/2014 4:44 PM PSTGretchen called to report that her cath sit e is getting more painful by the day. She will come to the office in the morning so we can check the site, she will be here by 8:30am ...........................................Nilda Escalona RN on 03/07/2014 at 16:45 documented in this encounter Plan of Treatment +--------+---------+ + + + | Date | Type | Specialty | Care Team | Description | +--------+---------+ + + + | 09/27/ | Office | Sleep Medicine | Meghan Garcia MD | | | 2019 | Visit | | [address] | | | | | | [place] | | | | | | [id number] | | | | | | | | +--------+---------+ + + + | 11/24/ | Office | Cardiology | [place], | | | 2019 | Visit | | SINDHU Erickson [address] | | | | | | [place], | | | | | | [place] [address] | | | | | | [phone] | | | | | | | | +--------+---------+ + + + | 03/01/ | Office | Pulmonology | Mukul Clark MD | | | 2020 | Visit | | [address] | | | | | | [place] | | | | | | [address] | | | | | | | [...] 0950 hours. Dictated and Signed by: Aditya Synder MD | | | Electronically signed: 03/08/2014 [...] + | MISCELLANEOUS LAB | | | [phone] | + +---------+ + + | MISCELANIOUS LAB | | | [phone] | + +---------+ + + documented in [...]
--- OUTSIDE RECORDS SUMMARY | ~2019-09-27 | XMS | Encounter Summary ---
Demographics + + + | Address | [address] | | | [place] [address] | + + + | Home Phone [...] Team Providers + +------+ + | Care Snubber Name | Role | Phone | + +------+ + | Juan Cherry DO | PCP | | + +------+ + Encounter Details +--------+---------+ + + + | Date | Type | Department | Care Team | Description | +--------+---------+ + + + | 10/22/ | Office | [facility] | Jared Mcdonough, | Chronic obstructive | | 2017 | Visit | MED CTR CARDIAC | [address] | pulmonary disease, | | | | [facility] [address] [place], | unspecified COPD | | | | [place] | [place] [address] | type (HCC) (Primary | | | | [place] [address] | [phone] | Dx); Mild persistent | | | | [phone] | | asthma without | | | [...] | | | | | | [place] [address] | | | | | | [phone] | | | | | | | | +--------+---------+ + + + | 03/01/ | Office | Pulmonology | Mukul Clark MD | | | 2020 | Visit | | [address] | | | | | | [place] | | | | | | [address] | | | | | | | [...]
--- OUTSIDE RECORDS SUMMARY | ~2019-09-27 | XMS | Encounter Summary ---
Demographics + + + | Address | [address] | | | [place] [address] | + + + | Home Phone [...] Providers + +------+ + | Care Title I Assistant Name | Role | Phone | + +------+ + | Juan Cherry DO | PCP | | + +------+ + Reason for Visit +--------+--------+ + | Reason | Onset | Comments | | | Date | | +--------+--------+ + | Other | 07/29/ | | | | 2018 | | +--------+--------+ + Encounter Details +--------+ + + + + | Date | Type | Department | Care Team | Description | +--------+ + + + + | 07/29/ | Telephone | [facility] | Andriy Weebr | Leora | | 2018 | | [address] | MD [address] | | | | | [place] | [place] | | | | | [address] | [place] [address] | | | | | [phone] | [phone] | | | | | | | [...] Notes Telephone Encounter - Korin Holly - 07/29/2017 2:51 PM PDTPt called and stated pa in was still there and would like to see about getting pain meds. Dr. Weber wrote prescript ion and pts friend came and picked up meds. Friend provided DL and [facility] photo id for spanish moss picker. Vahe Khan [birth year]. P M PDTdocumented in this encounter Plan of Treatment [...] | | | | | | [place] [address] | | | | | | [phone] | | | | | | | [...]
--- OUTSIDE RECORDS SUMMARY | ~2019-09-27 | XMS | Encounter Summary ---
Demographics + + + | Address | [address] | | | [place] [address] | + + + | Home Phone [...] Team Providers + +------+ + | Care Strike Plate Attacher Name | Role | Phone | + +------+ + | Juan Cherry DO | PCP | | + +------+ + Reason for Visit + +--------+ + | Reason | Onset | Comments | | | Date | | + +--------+ + | Medication Refill | 09/13/ | | | | 2015 | | [...] [address] | | | | | [place], | [place], [place] | | | | | [place] [address] | [address] | | | | | [phone] | | | +--------+--------+ + + + [...] [place] | | | | | | [place] [address] | | | | | | [phone] | | | | | | | [...]
--- OUTSIDE RECORDS SUMMARY | ~2019-09-27 | XMS | Encounter Summary ---
Demographics + + + | Address | [address] | | | [place] [address] | + + + | Home Phone [...] Team Providers + +------+ + | Care Motion Picture Film Examiner Name | Role | Phone | + +------+ + | Juan Cherry DO | PCP | | + +------+ + Encounter Details +--------+ + + + + | Date | Type | Department | Care Team | Description | +--------+ + + + + | 02/22/ | Hospital | [facility] | Ozzie Hayes | | | 2011 | Encounter | MED CTR EMERGENCY | MD Ran [address] | | | | | [place] [address] | [address] [facility] [address] | | | | | [place], [place] | [place] [address] | | | | | [address] | [phone] | | | | | [phone] | | | +--------+ + + + [...] encounter ED Notes Ozzie Hayes MD - 03/12/2012 6:22 [place] [address] Patient Name: JADYN SCHMITZ Provider: Unit #: [id number] [id number] 1965 DATE: 02/23/2012 TIME OF EXAM: 0535. REASON FOR PRESENTATION: "Diverticulitis." HISTORY OF PRESENT ILLNESS: The patient is a 47-year-old female who presents with what she believes is diverticulitis. She notes left lower quadrant abdominal pain. States it has be en present for approximately 2 hours, well localized to the left lower quadrant. No radiati ng symptoms. Symptoms have been persistent since their onset, seem to be increasing in hue rity, currently moderate in severity. Symptoms not worsened or improved by anything. Rolf white she tries make the symptoms better. Symptoms again constant since their onset. Denies fev ers, chills, headache, neck stiffness, runny nose, sore throat, cough, difficulty breathing , chest pain, palpitations, shortness of breath, cough, sputum production, dysuria, hematur ia, flank pain, skin rashes, lesions, extremity swelling, tenderness, edema , focal weaknes s, numbness, or other symptoms or complaints. She has not been vomiting, has not noted any blood in her stools. She has had some loose stools. FAMILY HISTORY: Noncontributory. PAST MEDICAL HISTORY: Asthma, COPD. Diverticulitis. SOCIAL HISTORY: Smokes cigarettes. Denies alcohol or street drug use. MEDICATIONS See nurse's note for complete list. ALLERGIES: SEE NURSE'S NOTE FOR COMPLETE LIST. REVIEW OF SYSTEMS As noted in HPI, otherwise negative. PHYSICAL EXAMINATION VITAL SIGNS: Blood pressure 99/60, heart rate 74, respiratory rate 16, temperature 96.4, o xygen saturation 97% on room air. GENERAL: The patient nontoxic-appearing, in no acute distress. HEENT: Normocephalic. Oropharynx moist and patent. The patient is in no respiratory distre ss. HEART: Regular, no murmurs, gallops, or rubs. LUNGS: Decreased breath sounds bilaterally, but otherwise clear. ABDOMEN: Soft, mild tenderness in the left lower quadrant. There is no rebound, guarding, or palpable masses. No CVA tenderness to percussion. SKIN: Intact without rashes or lesions. EXTREMITIES: Lower extremities not swollen, tender, or edematous. NEUROLOGIC: The patient is alert, oriented, appropriate, ambulatory in the emergency depar tment without difficulty. Normal balance and gait. LABORATORIES: CBC, lipase, CMP, , urine dip, CT abdomen and pelvis ordered and pending. EMERGENCY DEPARTMENT COURSE: The patient signed out to oncoming emergency physician. Shahrzad russell see note for results of these tests and final disposition of this patient. INITIAL IMPRESSION: ABDOMINAL PAIN. PLAN: As above. DICTATED BY: Ozzie Hayes MD Emergency Medicine JOB #: [id number] EXT JOB #:[id number] <<Signature on File>> Ozzie Hayes MD03/12/12 215 < Yecenia Dixon MD - 02/24/2012 2:00 [place] [address] Patient Name: JADYN SCHMITZ Provider: Unit #: [id number] Location: : 1965 DATE: 02/23/2012 ADDENDUM: This is a 47-year-old female who was signed out to me by the off going emergency department physician. EMERGENCY DEPARTMENT COURSE: The patient presented with complaints of "diverticulitis." Sh drew tells me she has had diarrhea since , not associated with any blood. No vomiting, no measured fever. Her lab work was reassuring. CT of the abdomen was pending at the time of sign out. I was asked to followup on the resu lts and oversee her disposition. CT did not show any acute findings, including no evidence of diverticulitis. She is prescribed tramadol for pain routinely. She was given dicyclomine 20 mg p.o. Poteau 1 tablet p.o. was ordered, inadvertently she was given two. This should n ot have any adverse effects. She will be discharged home with a prepack of Poteau from our n ight stock as well as dicyclomine. Followup recommended in outpatient clinic. We discussed that Imodium, Lomotil, and Pepto-Bismol are not recommended early in the course of diarrhea . She should just let it run its course. She is fine with that and now ready for discharge. IMPRESSION: DIARRHEA. DICTATED BY: Yecenia Gallegos MD Emergency Medicine JOB #: [id number] EXT JOB #:[id number] cc: Ozzie Hayes MD <<Signature on File>> Yecenia Gallegos MD03/03/12 1658 < documented in this encounter Plan of [...] | | | | | | [place] [address] | | | | | | [phone] | | | | | | | | +--------+---------+ + + + | 03/01/ | Office | Pulmonology | Mukul Clark MD | | | 2020 | Visit | | [address] | | | | | | [place] | | | | | | [address] | | | | | | | [...] Performed At | + + + | [facility] | [place] | | Department [address] , [place] | [place] | | [ rep ct street[address]] [ rep ct [facility] | | st zip] Signed | - IMAGING | | | | | Patient Name: JADYN SCHMITZ | | | Physician: CHEVY : 1965 Age: 47 Sex: F Unit | | | #: [id number] Exam Date: 02/23/12 Location: | | | ER Report #: [id number] Page: | | | %(RAD)RES..mtdd.print.filter("pg") of %(RAD) | | | RES..mtdd.print.filter("tpg") | | | | | | Accession Number: [id number] | | | ENHANCED CT ABDOMEN AND [...] ER staff by the | | | gwendolyn radiologist on 02/23/2012 at 0741 hours. | | | Dictated Date/Time: 02/23/2012 12:00 Transcribed Date/Time: | | | 02/23/2012 12:15 Linen Manager: | | | <<Signature on File>> | | | Aditya Alonso | | | MD Claudio02/23/12 6296 <Electronically signed by Aditya Snyder MD> | | | Aditya Snyder MD 02/23/12 1200 Linen Manager: | | | [employer] Wlvhdhexrzwvg92/30/12 1215 Ozzie Hayes MD | | | | | + + + + + + + + | Performing | Address | City/State/Zipcode | Phone Number | | Organization | | | | + + + + + | [facility] | [address] | [place] | [phone] | | [facility] | | [address] | | | - IMAGING | | [...] + + + + | Color, | YELLOW | | [facility] | | | Urine | | | [facility] | | [...] - 1.030 | [facility] | | | [place], | | | [facility] | | [...] + + + | White Blood | 2-4 | 0 - 1 /hpf | [facility] | | | Cells, | | | [facility] | | | Urine | | | MEDICAL | | | | | | CENTER - | | | | | | LABORATORY | | + + + + + + | Red Blood | 0-2 | 0 - 4 /hpf | [facility] | | | Cells, | | | [facility] | | | Urine | | | MEDICAL | | | | | | CENTER - | | | | | | LABORATORY | | + + + + + + | Squamous | NONE | FEW /hps | [facility] [...] + | [facility] | [address] | [place], [place] | [phone] | | [facility] | | [address] | | | - LABORATORY | | | | + + + + + | [facility] | [address] | [place], [place] | | | [facility] | | [id number] [place] [address] | | | - LABORATORY | | [...] | | | DIFFERENTIA | | | . [facility] | | | L ? | | | MEDICAL | | | | | | CENTER - | | | | | | LABORATORY | | + +-------+ + + + | White Blood | 9.4 | 4.0 - 11.0 K/uL | [facility] | | | Cells | | | . [facility] | | | | | | MEDICAL | | | | | | CENTER - | | | | | | LABORATORY | | + +-------+ + + + | Red Blood | 4.53 | 3.70 - 5.20 | [facility] | | | Cells | | M/uL | [facility] | [...] | | | Basophils | | | [facility] | | [...] + | [facility] | [address] | [place] | [phone] | | [facility] | | [address] | | | - LABORATORY | | | | + + + + + | [facility] | [address] | [place] | | | [facility] | | [address] | | | - [...] | | | | mg/dL | Chris [place] | | | | [...] | 11.8 | 6.0 - 17.0 | [facility] | | | | | | [address] [...] [address] | [place] | [phone] | | [facility] | | [address] | | | - LABORATORY | | | | + + + + + | [facility] | [address] | [place] | | | [facility] | | [address], [facility] | | | - LABORATORY | | [...] | | | SERUM/PLASM | | | [facility] | | | A | | | [...] + | [facility] | [address] | [place], [place] | [phone] | | [facility] | | [address] | | | - LABORATORY | | | | + + + + + | [facility] | [address] | [place], [place] | | | [facility] | | [id number] [place] [address] | | | - LABORATORY | | [...] + | [facility] | [address] | [place] | [phone] | | [facility] | | [address] | | | - LABORATORY | | | | + + + + + | [facility] | [address] | [place] | | | [facility] | | [address] | | | - LABORATORY | | | | + + + + + documented in this encounter Visit Diagnoses Not on filedocumented in this encounter
--- OUTSIDE RECORDS SUMMARY | ~2019-09-27 | XMS | Encounter Summary ---
Demographics + + + | Address | [address] | | | [place] [address] | + + + | Home Phone [...] Team Providers + +------+ + | Care Baggage Screener Name | Role | Phone | + [...] | | | | | [address] [facility] | [place] [address] | | | | | [place] [address] | | | | | | [phone] | | | +--------+ + + + [...] | 11/24/ | Office | Cardiology | [place], | | | 2019 | Visit | | SINDHU Erickson [address] | | | | | | [place] | | | | | | [place] [address] | | | | | | [phone] | | | | | | | | +--------+---------+ + + + | 03/01/ | Office | Pulmonology | Mukul Clark MD | | | 2020 | Visit | | [address] | | | | | | [place] | | | | | | [phone] | | | | | | | [...]
--- OUTSIDE RECORDS SUMMARY | ~2019-09-27 | XMS | Encounter Summary ---
Demographics + + + | Address | [address] | | | [place] [address] | + + + | Home Phone [...] Team Providers + +------+ + | Care Headliner Installer Name | Role | Phone | [...] | | [address] | MD [address] | cystitis (Primary | | | | [place], [place] | [address] [place] | Dx) | | | | [address] | [place] [address] | | | | | [phone] | [phone] | | | | | | | [...] [place] | | | | | | [id number] | | | | | | | | +--------+---------+ + + + | 11/24/ | Office | Cardiology | [place], | | | 2019 | Visit | | SINDHU Erickson [address] | | | | | | [place] | | | | | | [place] [address] | | | | | | [phone] | | | | | | | | +--------+---------+ + + + | 03/01/ | Office | Pulmonology | Mukul Clark MD | | | 2020 | Visit | | [address] | | | | | | [place] | | | | | | [address] | | | | | | | | +--------+---------+ + + + documented as of this encounter Visit Diagnoses + + | Diagnosis | + + | Interstitial cystitis - Primary Chronic interstitial cystitis | + + documented in this encounter"
--- OUTSIDE RECORDS SUMMARY | ~2019-09-27 | XMS | Encounter Summary ---
Demographics + + + | Address | [address] | | | [place] [address] | + + + | Home Phone [...] Team Providers + +------+ + | Care Elementary Math Tutor Name | Role | Phone | [...] [address] | | | | | [place], | [place], | | | | | [place] [address] | [place] [address] | | | | | [phone] | [phone] | | | | | | | [...] | | | | | | [place] [address] | | | | | | [phone] | | | | | | | | +--------+---------+ + + + | 03/01/ | Office | Pulmonology | Mukul Clark MD | | | 2020 | Visit | | [address] | | | | | | [place] | | | | | | [address] | | | | | | | | +--------+---------+ + + + documented as of this encounter Procedures + +--------+ + + + | Procedure Name | Priori | Date/Time | Associated Diagnosis | Comments | | | ty | | | | + +--------+ + + + | EXTERNAL LAB: BUN | Routin | 03/18/2017 | | Results [...]
--- OUTSIDE RECORDS SUMMARY | ~2019-09-27 | XMS | Encounter Summary ---
Demographics + + + | Address | [address] | | | [place] [address] | + + + | Home Phone [...] Providers + +------+ + | Care Sql Database Developer Name | Role | Phone | + +------+ + | Juan Cherry DO | PCP | | + +------+ + Encounter Details +--------+ + + + + | Date | Type | Department | Care Team | Description | +--------+ + + + + | 09/09/ | Hospital | [facility] IP | Conversion | Pain | | 2015 | Encounter | CONVERSION [address] | Transaction, | | | | | [address] | Provider Unknown | | | | | [place], [place] | [phone] | | | | | [address] | | | | | | [phone] | | | +--------+ + + + [...] | | | | order to [facility]. | | | | | + [...] | | | | | [facility]. | | | | | | [...] | | | | | | ([facility]) | | | | [...] | | | | | | ([facility]) | | | | [...] [place] | | | | | | [address] | | | | | | | | +--------+---------+ + + + | 11/24/ | Office | Cardiology | [place], | | | 2019 | Visit | | SINDHU Erickson [address] | | | | | | [place] | | | | | | [place] [address] | | | | | | [phone] | | | | | | | | +--------+---------+ + + + | 03/01/ | Office | Pulmonology | Mukul Clark MD | | | 2020 | Visit | | [address] | | | | | | [place] | | | | | | [address] | | | | | | | [...]
--- OUTSIDE RECORDS SUMMARY | ~2019-09-27 | XMS | Encounter Summary ---
Demographics + + + | Address | [address] | | | [place] [address] | + + + | Home Phone [...] Team Providers + +------+ + | Care Casing Crew Name | Role | Phone | + [...] | | | | | pulmonary | [address] | [address] | | | | | disease, | [place], | [address] [place] | | | | | unspecified | [place] [address] | [place], [place] | | | | | COPD type | Phone: | [address] | | | | | (HCC) | [phone] | Phone: | | | | | Pulmonary | Fax: | [phone] | | | | | emphysema, | [phone] | Fax: | | | | | unspecified | | [phone] | | | | | emphysema | | | | | | | type ([facility]) | | | +--------+ + + + + + Encounter Details +--------+---------+ + + + | Date | Type | Department | Care Team | Description | +--------+---------+ + + + | 05/14/ | Office | [facility] | Jared Mcdonough, | Chronic obstructive | | 2017 | Visit | MED CTR CARDIAC | [address] | pulmonary disease, | | | | REHABILITATION [address] | [address] [place], | unspecified COPD | | | | [address] [place] | [place] [address] | type (HCC) (Primary | | | | [place] [address] | [phone] | Dx); Pulmonary | | | | [phone] | | emphysema, | | | | [...] Desean Chris - 05/14/2016 3:39 PM PDT [facility] [address] [place] [address] Cardiac Rehab Date: 05/14/2016 Patient Information Patient Name: Rosario Malik Date of : 1965 Age: 51 y.o. Encounter Diagnoses Code Name Primary? J44.9 Chronic obstructive pulmonary disease, unspecified COPD type (HCC) Yes J43.9 Pulmonary emphysema, unspecified emphysema type (HCC) Number of Visits Approved: 10 (7) Taken Medications Today? Yes Any Changes in Medications? No Any Problems to Report? No Pain Level? 4/10 Fall Risk/Liquid Oxygen Denies any adverse symptoms [...] [place] | | | | | | [address] | | | | | | | | +--------+---------+ + + + | 11/24/ | Office | Cardiology | [place] | | | 2019 | Visit | | SINDHU Erickson [address] | | | | | | [place] | | | | | | [place] [address] | | | | | | [phone] | | | | | | | | +--------+---------+ + + + | 03/01/ | Office | Pulmonology | Mukul Clark MD | | | 2020 | Visit | | [address] | | | | | | [place] | | | | | | [address] | | | | | | | | +--------+---------+ + + + documented as of this encounter Visit Diagnoses + + | Diagnosis | + + | Chronic obstructive pulmonary disease, unspecified COPD type (HCC) - Primary | + + | Pulmonary emphysema, unspecified emphysema type (HCC) | + + documented in this encounter"
--- OUTSIDE RECORDS SUMMARY | ~2019-09-27 | XMS | Encounter Summary ---
Demographics + + + | Address | [address] | | | [place] [address] | + + + | Home Phone [...] Providers + +------+ + | Care Health Inspector Food Name | Role | Phone | + [...] | | MD Jared | [address] | | | | | Pericarditis | [address] | [place], | | | | | Procedures | [address] | [place] | | | | | ECHO | [place], | [address] | | | | | Complete | [place] [address] | Phone: | | | | | | Phone: | [phone] | | | | | | [phone] | Fax: | | | | | | Fax: | [phone] | | | | | | [phone] | | +--------+--------+ + + + + [...] | | MD Jared | [address] | | | | | Pericarditis | [address] | [place], | | | | | Procedures | [address] | [place] | | | | | ECHO | [place], | [address] | | | | | Complete | [place] [address] | Phone: | | | | | | Phone: | [phone] | | | | | | [phone] | Fax: | | | | | | Fax: | [phone] | | | | | | [phone] | | +--------+--------+ + + + + Encounter Details +--------+ + + + + | Date | Type | Department | Care Team | Description | +--------+ + + + + | 01/14/ | Hospital | [facility] | Jared Mcdonough, | Pericarditis | | 2013 | Encounter | MED CTR ECHO [address] | [address] | | | | | [place] | [place], | | | | | [place] [address] | [place] [address] | | | | | [phone] | [phone] | | | | | | | [...] | | | | | | [place] [address] | | | | | | [phone] | | | | | | | | +--------+---------+ + + + | 03/01/ | Office | Pulmonology | Mukul Clark MD | | | 2020 | Visit | | [address] | | | | | | [place] | | | | | | [address] | | | | | | | [...] Performed At | + + + | [facility] | RANJANYENI | | STUDY DATE: 01/14/2014 PATIENT NAME: Rosario Malik | [facility] | | : 1965 PCP: Juan Cherry [facility] | | CLINICAL HISTORY/DIAGNOSIS: Pericarditis/pericardial effusion [...] by: | | | Jared Mcdonough MD [facility] 01/14/2014 8:40 Pyridine Operator: | | | Charmaine Ibarra RDMS | | + + + + + | Procedure Note | + + | Jared Mcdonough MD - 01/14/2014 11:28 AM [facility] | | CENTERECHOCARDIOGRAM REPORTSTUDY DATE: 01/14/2014PATIENT NAME: Rosario AyersOB: | | 1965MRN: [id number]: EFREN GuillaumeLINICAL HISTORY/DIAGNOSIS: | | Pericarditis/pericardial effusionA [...] | mmHgLA volume: 30 mLLA index: 18 mL/d0Zofrzw Inflow DT: 262 msIVRT: 75 msValsalva: | | NegativePWDTI S wave: 8.7 cm/sPWDTI E wave: 9.0 cm/sPWDTI A wave: 11.5 cm/sE/A Ratio: | | 0.783E/E Ratio: 8.95Signed by: Jared Mcdonough MD [facility] 01/14/2014 8:40 | | Pyridine Operator: Charmaine Ibarra RDMS | | | | [...] | | |Signed by: Jared Mcdonough MD [facility] | | 01/14/2014 8:40 | | | | | |Pyridine Operator: Charmaine Ibarra RDMS | + + + + + + + | Performing | Address | City/State/Zipcode | Phone Number | | Organization | | | | + + + + + | [facility] | [address] | [place] | [phone] | | [facility] | | [address] | | | - IMAGING | | [...]
--- OUTSIDE RECORDS SUMMARY | ~2019-09-27 | XMS | Encounter Summary ---
Demographics + + + | Address | [address] | | | [place] [address] | + + + | Home Phone [...] Team Providers + +------+ + | Care Portrait Painter Name | Role | Phone | + +------+ + PCP | Unavailable | + +------+ + Encounter Details +--------+ + + + + | Date | Type | Department | Care Team | Description | +--------+ + + + + | 09/27/ | [facility] | [facility] | | | | 2009 | Encounter | MED CTR LABORATORY | | | | | | [address] [place] | | | | | | [place] | | | | | | [address] | | | | | | [phone] | | | +--------+ + + + [...] | | | | | | [place] [address] | | | | | | [phone] | | | | | | | | +--------+---------+ + + + | 03/01/ | Office | Pulmonology | Mukul Clark MD | | | 2020 | Visit | | [address] | | | | | | [place] | | | | | | [address] | | | | | | | | +--------+---------+ + + + documented as of this encounter Visit Diagnoses Not on filedocumented in this encounter"
--- OUTSIDE RECORDS SUMMARY | ~2019-09-27 | XMS | Encounter Summary ---
Demographics + + + | Address | [address] | | | [place] [address] | + + + | Home Phone [...] + +------+ + | Care Director Of Pediatric Rehabilitation Name | Role | Phone | + [...] + + | 05/22/ | Clinical | [facility] | Andriy Weber | Interstitial | | 2018 | Support | [address] | MD [address] | cystitis (chronic) | | | | [place] | [place] | without hematuria | | | | [address] | [place] [address] | | | | | [phone] | [phone] | | | | | | | [...] as of this encounter Progress Notes Virgen Soliz, NAYELI - 05/22/2017 9:30 AM PDTPatient presents for [...] was discharged home and will return to [facility] in 1 week for next treatment.Electronically [...] [place] | | | | | | [address] | | | | | | | | +--------+---------+ + + + | 11/24/ | Office | Cardiology | [place], | | | 2019 | Visit | | SINDHU Erickson [address] | | | | | | [place], | | | | | | [place] [address] | | | | | | [phone] | | | | | | | | +--------+---------+ + + + | 03/01/ | Office | Pulmonology | Mukul Clark MD | | | 2020 | Visit | | [address] | | | | | | [place] | | | | | | [address] | | | | | | | [...] 1.001 - 1.030 | | | | [place], | | | | | | [facility], [...]
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
--- OUTSIDE RECORDS SUMMARY | ~2019-09-27 | XMS | Encounter Summary ---
Demographics + + + | Address | [address] | | | [place] [address] | + + + | Home Phone [...] Providers + +------+ + | Care Spring Salvage Worker Name | Role | Phone | + +------+ + PCP | Unavailable | + +------+ + Encounter Details +--------+ + + + + | Date | Type | Department | Care Team | Description | +--------+ + + + + | 01/29/ | Hospital | [facility] | Ozzy Delcid, | | | 2009 - | Encounter | MED CTR OP REHAB | [address] | | | | | [address] [place] | [address] [place], | | | 02/23/ | | [place] [address] | [place] [address] | | | 2009 | | [phone] | [phone] | | | | | | | [...] | Visit | | [address] | | | | | | [place] | | | | | | [address] | | | | | | | | +--------+---------+ + + + | 11/24/ | Office | Cardiology | [place], | | | 2019 | Visit | | SINDHU Erickson [address] | | | | | | [place] | | | | | | [place] [address] | | | | | | [phone] | | | | | | | | +--------+---------+ + + + | 03/01/ | Office | Pulmonology | Mukul Clark MD | | | 2020 | Visit | | [address] | | | | | | [place] | | | | | | [address] | | | | | | | | +--------+---------+ + + + documented as of this encounter Visit Diagnoses Not on filedocumented in this encounter"
--- OUTSIDE RECORDS SUMMARY | ~2019-09-27 | XMS | Encounter Summary ---
Demographics + + + | Address | [address] | | | [place] [address] | + + + | Home Phone [...] Team Providers + +------+ + | Care Biological Engineer Name | Role | Phone | [...] + + | 10/18/ | Telephone | [facility] | Kevin Sandoval, | Other (increased | | 2013 | | PULMONARY [address] | MD [address] | shortness of breath) | | | | [place], | [place] | | | | | [place] [address] | [id number] | | | | | [phone] | | | +--------+ + + + [...] | | | | | | [place] [address] | | | | | | [phone] | | | | | | | | +--------+---------+ + + + | 03/01/ | Office | Pulmonology | Mukul Clark MD | | | 2020 | Visit | | [address] | | | | | | [place] | | | | | | [phone] | | | | | | | | +--------+---------+ + + + documented as of this encounter Visit Diagnoses Not on filedocumented in this encounter"
--- OUTSIDE RECORDS SUMMARY | ~2019-09-27 | XMS | Encounter Summary ---
Demographics + + + | Address | [address] | | | [place] [address] | + + + | Home Phone [...] Team Providers + +------+ + | Care Curtain Worker Name | Role | Phone | + +------+ + | Juan Cherry DO | PCP | | + +------+ + Encounter Details +--------+ + + + + | Date | Type | Department | Care Team | Description | +--------+ + + + + | 02/22/ | Hospital | [facility] | Ozzie Hayes | | | 2011 | Encounter | MED CTR EMERGENCY | MD [address] | | | | | [place] [address] | [place] [facility] | | | | | [place], [place] | [place] [address] | | | | | [address] | [phone] | | | | | [phone] | | | +--------+ + + + [...] Ozzie Hayes MD - 03/12/2012 6:22 [place] [address] Patient Name: JADYN SCHMITZ Provider: Unit #: [id number] [id number] : 1965 DATE: 02/23/2012 TIME OF EXAM: [...] Ozzie Hayes MD Emergency Medicine JOB #: [id number] EXT JOB #:[id number] <<Signature on File>> Ozzie Hayes MD03/12/12 215 < Yecenia Dixon MD - 02/24/2012 2:00 [place] [address] Patient Name: JADYN SCHMITZ Provider: Unit #: [id number] Location: : 1965 DATE: 02/23/2012 ADDENDUM: This [...] She was given dicyclomine 20 mg p.o. Koppel 1 tablet p.o. was ordered, inadvertently she was given two. This should n ot have any adverse effects. She will be discharged home with a prepack of Koppel from our n ight stock as well as dicyclomine. Followup recommended in outpatient clinic. We discussed that Imodium, Lomotil, and Pepto-Bismol are not recommended early in the course of diarrhea . She should just let it run its course. She is fine with that and now ready for discharge. IMPRESSION: DIARRHEA. DICTATED BY: Yecenia Gallegos MD Emergency Medicine JOB #: [id number] EXT JOB #:[id number] cc: Ozzie Hayes MD <<Signature on File>> [...] | | | | | | [place] [address] | | | | | | [phone] | | | | | | | | +--------+---------+ + + + | 03/01/ | Office | Pulmonology | Mukul Clark MD | | | 2020 | Visit | | [address] | | | | | | [place] | | | | | | [address] | | | | | | | [...] Performed At | + + + | [facility] Diagnostic Imaging | [place] | | Department [address] , [place] | [place] | | [ rep ct [address]] [ rep ct [facility] | | st zip] Signed | - IMAGING | | | | | Patient Name: JADYN SCHMITZ | | | Physician: CHEVY : 1965 Age: 47 Sex: F Unit | | | #: [id number] Exam Date: 02/23/12 Location: | | | ER Report #: [id number] Page: | | | %(RAD)RES..mtdd.print.filter("pg") of %(RAD) | | | RES..mtdd.print.filter("tpg") | | | | | | Accession Number: [id number] | | | ENHANCED CT ABDOMEN AND [...] Transcribed Date/Time: | | | 02/23/2012 12:15 News Clerk: | | | <<Signature on File>> | | | Aditya Alonso | | | MD Claudio02/23/12 2864 <Electronically signed by Aditya Snyder MD> | | | Aditya Snyder MD 02/23/12 1200 News Clerk: | | | gamesGRABR Keqifqqyjuoaw73/30/12 1215 Ozzie Hayes MD | | | | | + + + + + + + + | Performing | Address | City/State/Zipcode | Phone Number | | Organization | | | | + + + + + | [facility] | [address] | [place] | [phone] | | [facility] | | [address] | | | - IMAGING | | [...] - 1.030 | [facility] | | | [place], | | | [facility] [place] | | [...] + | [facility] | [address] | [place], [place] | [phone] | | [facility] | | [address] | | | - LABORATORY | | | | + + + + + | [facility] | [address] | [place], [place] | | | [facility] | | [id number] [place] [address] | | | - LABORATORY | | [...] + | [facility] | [address] | [place] | [phone] | | [facility] | | [address] | | | - LABORATORY | | | | + + + + + | [facility] | [address] | [place] | | | [facility] | | [address] | | | - [...] [address] | [place] | [phone] | | [facility] | | [address] | | | - LABORATORY | | | | + + + + + | [facility] | [address] | [place] | | | [facility] | | [address], [facility] | | | - LABORATORY | [...] + | [facility] | [address] | [place], [place] | [phone] | | [facility] | | [address] | | | - LABORATORY | | | | + + + + + | [facility] | [address] | [place], [place] | | | [facility] | | [id number] [place] [address] | | | - LABORATORY | | [...] + | [facility] | [address] | [place] | [phone] | | [facility] | | [address] | | | - LABORATORY | | | | + + + + + | [facility] | [address] | [place] | | | [facility] | | [address] | | | - LABORATORY | | | | + + + + + documented in this encounter Visit Diagnoses Not on filedocumented in this encounter
--- OUTSIDE RECORDS SUMMARY | ~2019-09-27 | XMS | Encounter Summary ---
Demographics + + + | Address | [address] | | | [place] [address] | + + + | Home Phone [...] Team Providers + +------+ + | Care Feeder Worker Power Unit Operator Name | Role | Phone | [...] | | | | CENTER [address] | | carried out because | | | | [place] | | of patient's | | | | [address] | | decision (Primary | | | | [phone] | | Dx) | +--------+ + + [...] | | | | send order to [facility] | | | | | [...] | | | | | | [place] [address] | | | | | | [phone] | | | | | | | | +--------+---------+ + + + | 03/01/ Office | Pulmonology | Mukul Clark MD | | | 2020 | Visit | | [address] | | | | | | [place] | | | | | | [address] | | | | | | | [...] TRACKING (3 MO.) Visit Date Location | [facility] MUSE | | Type Diagnoses | | | -------- | | | ---- 08/22/2013 18:46 [place] | | | [facility] Emergency COPD Exacerbation; | | | 08/13/2013 20:38 [facility] | | | Emergency Shortness of Breath; | | | | | | COPD Exasperation; | | | | | | Obstructive chronic bronchitis with (acute) exacerbation; 07/18/2013 | | | 12:06 [facility] Emergency Arm | | | Laceration; | | | Open wound of upper | | | arm, without mention of complication; | | | | | | cut on Lft arm; 07/14/2013 00:15 [facility] | | | [facility] Emergency Shortness of Breath; | | | | | | Chronic obstructive asthma with (acute) | | | exacerbation; 06/19/2013 21:06 [facility] Emergency Obstructive chronic bronchitis with (acute) | | | exacerbation; | | | Shortness of | | | Breath; | | | diff breathing; | | | 06/19/2013 11:03 [facility] | | | Emergency COPD exasperation; 05/23/2013 19:52 [place] | | | [facility] Emergency Obstructive chronic | | | bronchitis with (acute) exacerbation; | | | | | | Obstructive chronic bronchitis with (acute) exacerbation; | | | | | | sob; | | | | | | Shortness of Breath; VISIT COUNT (1 YR.) Visits | | | Medicaid [place] Dx Location ------ | | | --------- 13 0 [facility] | | | [facility] 13 0 Total | | | Note: Visits indicate total known visits. Medicaid [place] Dx are the | | | number of primary diagnoses on the [facility]'s non-emergent dx list. | | [...]
--- OUTSIDE RECORDS SUMMARY | ~2019-09-27 | XMS | Encounter Summary ---
Demographics + + + | Address | [address] | | | [place] [address] | + + + | Home Phone [...] Providers + +------+ + | Care Glove Cutter Name | Role | Phone | [...] + + | 09/17/ | Office | [facility] | Ashlee Allison, | Palpitations | | 2018 | Visit | CARDIOLOGY [address] | [place] [address] | (Primary Dx); | | | | [place], | [facility], [place] | Paroxysmal atrial | | | | [place] [address] | [address] | tachycardia (HCC); | | | | [phone] | | Hypotension due to | | [...] was again seen in emergency department at [facility] on 08/30/17 for tachycardia, ECG showing sinus tachycardia with rate of 110 beats per minute, no acute f indings, her potassium was found to be low at 3.1, and blood pressure was high 144/111 mmHg, she was given one replacement dose of potassium, and had 48 hour Holter placed. She was aga in seen in emergency department at [facility] on 09/13/17 for tachyca rdia, with ECG [...] takes this da rigoberto Respiratory Therapy Supplies [facility] Please provide patient with necessary CPAP supplies ( she did not specify, okay to send order as appropriate) Diagnosis Code(s)327.23 . Length of Need 99 months. Please send order to [facility]. 1 each 0 Respiratory Therapy Supplies [facility] Change CPAP back to [...] adversely affected Probable Sinus tachycardia with short CT though P waves are difficult to identify due to p oor quality of tracing PAC's Possible Inferior infarct , age undetermined Nonspecific ST and T wave abnormality :cannot exclude ischemia Abnormal ECG When compared with ECG of 30-AUG-2017 11:40, premature supraventricular complexes are no longer present CT interval has decreased Possible Inferior infarct is now present Confirmed by RAFA WELLS MD ([id number]) on 09/14/2017 9:47:53 AM LAB RESULTS reviewed during visit today primarily from [facility]: LIPID Lab Results Component Value Date [...] BNP 22 08/14/2017 I reviewed records from [facility] for emergency department visit o n 08/14/17, 08/30/17, and 09/13/17 which is summarized in the HPI. IMAGING- I reviewed reports from [facility]: Xr Chest Ap Portable Result Date: 09/13/2017 [...] and v entricular function done at the [facility]. LVEF 78%. C. Holter Monitor 08/16/13 [...] She was seen at the ED of [facility] 3 weeks ago and again 1 [...] this chart may have been created with [employer] voice recognition software. Occasi onal wrong-word or [...] | | | | | | [place] [address] | | | | | | [phone] | | | | | | | | +--------+---------+ + + + | 03/01/ | Office | Pulmonology | Mukul Clark MD | | | 2020 | Visit | | [address] | | | | | | [place] | | | | | | [address] | | | | | | | [...] + | [facility] | [address] | [place] | [phone] | | [facility] | | [address] | | | - LABORATORY | | [...] | non- | FILTRATION | mL/min/1.73m2 | BERNA | | | Venezuelan | RATE,ESTIMATED | | MEDICAL | | | | mL/min/1.96h6Gtjq than | | CENTER - | | [...] [address] | [place] | [phone] | | [facility] | | [address] | | | - LABORATORY | | [...]
--- OUTSIDE RECORDS SUMMARY | ~2019-09-27 | XMS | Encounter Summary ---
Demographics + + + | Address | [address] | | | [place] [address] | + + + | Home Phone [...] Providers + +------+ + | Care Furniture Reproducer Name | Role | Phone | + +------+ + | Juan hCerry DO | PCP | | + +------+ + Encounter Details +--------+ + + + + | Date | Type | Department | Care Team | Description | +--------+ + + + + | 02/12/ | Hospital | [facility] | Nestor Martinez, | | | 2012 | Encounter | MED CTR EMERGENCY | MD [address] | | | | | CENTER [address] | [place], [place] | | | | | [place], [place] | [address] | | | | | [address] | | | | | | [phone] | | | +--------+ + + + [...] | | | | | [facility]. | | | | | [...] Nestor Martinez MD - 02/12/2013 11:46 [place] [address] Patient Name: JADYN SCHMITZ Provider: Unit #: [id number] [id number] 1965 DATE: 02/12/2013 CHIEF COMPLAINT: This [...] on-call pulm onologist, who covers for her youth manager, and they prescribed her prednisone over the [...] continue the prednisone course prescribed by her youth manager, and use her inhaled medication every 4 hours while awake. Return if worsenin g. DICTATED BY: Nestor Martinez M.D. Emergency Medicine JOB #: [id number] EXT JOB #:[id number] <<Signature on File>> Nestor Martinez MD1 04/17/12 [...] | | | | | | [place] [address] | | | | | | [phone] | | | | | | | [...]
--- OUTSIDE RECORDS SUMMARY | ~2019-09-27 | XMS | Encounter Summary ---
Demographics + + + | Address | [address] | | | [place] [address] | + + + | Home Phone [...] Providers + +------+ + | Care Project Manager Retail Name | Role | Phone | + [...] [address] | | | | | [place], | [place], | | | | | [place] [address] | [place] [address] | | | | | [phone] | [phone] | | | | | | | [...] | | | | | | [place] [address] | | | | | | [phone] | | | | | | | | +--------+---------+ + + + | 03/01/ | Office | Pulmonology | Mukul Clark MD | | | 2020 | Visit | | [address] | | | | | | [place] | | | | | | [address] | | | | | | | [...]
--- OUTSIDE RECORDS SUMMARY | ~2019-09-27 | XMS | Clinical Summary ---
Demographics + + + | Address | [address] | | | [place] [address] | + + + | Home Phone [...] Providers + +------+ + | Care Machine Operator Packaging Name | Role | Phone | + [...] | | | | send order to [facility] | | | | | [...] | | | | order to [facility]. | | | | | | + [...] Please send | | | order to [facility]., | | | Reported on | | [...] + + + + + | Overview: [facility] 04/12/2010 Diverticulosis | | | | Next [...] + + | Overview: Echocardiogram, 08/23/2013 at [facility] shows normal | | systolic left ventricular [...] + +---+ + + | Overview: PLRU [id number] Decision | + + + +---+ | [...] | | | | | | [place] [address] | | | | | | [phone] | | | | | | | | +--------+---------+ + + + | 03/01/ | Office | Pulmonology | Mukul Clark MD | | | 2020 | Visit | | [address] | | | | | | [place] | | | | | | [address] | | | | | | | [...] MD, | | | 08/19/2019 12:[address] [facility] | | |obstructive physiology that becomes mild [...] | |12:26 PM PDT | | |[facility] | | + + + from Last [...] +--------+ +---------+--------+ | MEDICARE | MEDICA | [id number] | | [phone] | | Medica | | | RE | | 999-Pr | 5 | | re | | | PART A | | esent | | | | | | AND B | | | | | | + +--------+ +--------+ +---------+--------+ | MEDICARE | MEDICA | [id number] | | [phone] | | Medica | [...] Self | [birth year] | | [address] | | | al/Fam | | 1965 | [phone] | [address] [place] | | | rigoberto | | | 4 (Home) | [address] | | | | | | [phone] | | | | | | | 4 (Work) | | + +--------+ +--------+ + + | Rosario Malik W | Person | Self | [birth year] | | [address] [facility] [address] [facility] [address] | | | al/Fam | | 1965 | [phone] | [address] [place] | | | rigoberto | | | 4 (Home) | [address] | + +--------+ +--------+ + + | Rosario Malik W | Worker | Self | [birth year] | | [address] | | | s Comp | | 1964 | [phone] | [place] | | | | | | 1 (Home) | [address] | | | | | | [phone] | | | | | | | 3 (Work) | | + +--------+ +--------+ + + Advance Directives + + + + + | Type | Date Recorded | Patient | Explanation | | | | Cyber Forensics Analyst | | + + + + + | Power of | | | | | Pipe Puller | | | | + + + [...]
--- OUTSIDE RECORDS SUMMARY | ~2019-09-27 | XMS | Encounter Summary ---
Demographics + + + | Address | [address] | | | [place] [address] | + + + | Home Phone [...] Team Providers + +------+ + | Care Veterinary Nurse Name | Role | Phone | [...] including toes | | | | [place] | [place] | (Primary Dx) | | | | [address] | [address] | | | | | [phone] | | | +--------+---------+ + + + [...] | | | | | | [place] [address] | | | | | | [phone] | | | | | | | | +--------+---------+ + + + | 03/01/ | Office | Pulmonology | Mukul Clark MD | | | 2020 | Visit | | [address] | | | | | | [place] | | | | | | [address] | | | | | | | | +--------+---------+ + + + documented as of this encounter Results XR Foot Left 3 + Vw (01/07/2013 2:30 PM PST) + + | Specimen | + + | | + + + + + | Narrative | Performed At | + + + | [facility] | [place] | | Department [address] [facility] [place] | [facility] | | [ rep ct street[address]] [ rep ct [facility] | | st zip] Signed | - IMAGING | | | | | Patient Name: JADYN SCHMITZ | | | Physician: FRANCA : 1965 Age: 47 Sex: F Unit | | | #: [id number] Exam Date: 01/07/13 Location: | | | [facility] [place] #: [id number] Page: | | | %(RAD)RES..mtdd.print.filter("pg") of %(RAD) | | | RES..mtdd.print.filter("tpg") | | | | | | Accession Number: [id number] | | | LEFT FOOT, 01/07/2013 CLINICAL [...] Transcribed | | | Date/Time: 01/07/2013 15:01 Landscape Architecture Teacher: | | | <<Signature on File>> | | | Kobe | | | MD Tor01/07/13 1703 <Electronically signed by Kobe Lentz MD> | | | Kobe Lentz MD 01/07/13 6960 Landscape Architecture Teacher: Hochy etox | | | Paomnubrmuygz87/14/13 1501 Lencho Astorga MD | | + + + + + + + + | Performing | Address | City/State/Zipcode | Phone Number | | Organization | | | | + + + + + | [facility] | [address] | [place] | [phone] | | [facility] | | [address] | | | - IMAGING | | | | + + + + + documented in this encounter Visit Diagnoses + + | Diagnosis | + + | Contusion of foot including toes - Primary Contusion of foot | + + documented in this encounter
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
--- OUTSIDE RECORDS SUMMARY | ~2019-09-27 | XMS | Encounter Summary ---
Demographics + + + | Address | [address] | | | [place] [address] | + + + | Home Phone [...] Team Providers + +------+ + | Care Pricing Coordinator Name | Role | Phone | [...] | | [facility] | MD Ozzy Need | (Primary Dx) | | | | [address] | updated address | | | | | [address] [place] | | | | | | [place] | | | | | | [address] | | | | | | [phone] | | | +--------+ + + + [...] [place] | | | | | | [address] | | | | | | | | +--------+---------+ + + + | 11/24/ | Office | Cardiology | [place], | | | 2020 | Visit | | SINDHU Erickson [address] | | | | | | [place] | | | | | | [place] [address] | | | | | | [phone] | | | | | | | | +--------+---------+ + + + | 03/01/ | Office | Pulmonology | Mukul Clark MD | | | 2020 | Visit | | [address] | | | | | | [place] | | | | | | [address] | | | | | | | | +--------+---------+ + + + documented as of this encounter Visit Diagnoses + + | Diagnosis | + + | Sprain of chest wall - Primary Other specified sites of sprains and strains | + + documented in this encounter"
--- OUTSIDE RECORDS SUMMARY | ~2019-09-27 | XMS | Encounter Summary ---
Demographics + + + | Address | [address] | | | [place] [address] | + + + | Home Phone [...] Team Providers + +------+ + | Care Labor Law Professor Name | Role | Phone | [...] + + | 03/01/ | Telephone | [facility] | Jared Mcdonough, | Other (having pain | | 2014 | | CARDIOLOGY [address] | MD [address] [place] | after heart cath) | | | | [place], | [facility] | | | | [place] [address] | [place] [address] | | | | | [phone] | [phone] | | | | | | | [...] | | | | | | [place] [address] | | | | | | [phone] | | | | | | | | +--------+---------+ + + + | 03/01/ | Office | Pulmonology | Mukul Clark MD | | | 2020 | Visit | | [address] | | | | | | [place] | | | | | | [address] | | | | | | | | +--------+---------+ + + + documented as of this encounter Visit Diagnoses Not on filedocumented in this encounter"
--- OUTSIDE RECORDS SUMMARY | ~2019-09-27 | XMS | Encounter Summary ---
Demographics + + + | Address | [address] | | | [place] [address] | + + + | Home Phone [...] Providers + +------+ + | Care It Infrastructure Manager Name | Role | Phone | [...] [place], | | | | | | [place] [address] | | | | | | [phone] | | | +--------+ + + + [...] stating that she moved back to [place] [facility] from [place]. She intends to schedule a follow up but added that on Friday ritesh russell had increased shortness of breath and increased wheeze. She was hospitalized in [place] twice and had Prednisone on hand so [...] [place] | | | | | | [id number] | | | | | | | | +--------+---------+ + + + | 11/24/ | Office | Cardiology | [place], | | | 2019 | Visit | | SINDHU Erickson [address] | | | | | | [place] | | | | | | [place] [address] | | | | | | [phone] | | | | | | | | +--------+---------+ + + + | 03/01/ | Office | Pulmonology | Mukul Clark MD | | | 2020 | Visit | | [address] | | | | | | [place] | | | | | | [address] | | | | | | | | +--------+---------+ + + + documented as of this encounter Visit Diagnoses Not on filedocumented in this encounter"
--- OUTSIDE RECORDS SUMMARY | ~2019-09-27 | XMS | Encounter Summary ---
Demographics + + + | Address | [address] | | | [place] [address] | + + + | Home Phone [...] Team Providers + +------+ + | Care Intravenous Therapy Nurse Name | Role | Phone | [...] + + | 12/15/ | Emergency | [facility] | Her[facility] | Lower abdominal pain | | 2018 | | [facility] | Ozzy Kim MD [address] | (Primary Dx) | | | | [place] [address] | [facility] | | | | | [place] | [place] [address] | | | | | [address] | [phone] | | | | | [phone] | | | +--------+ + + + [...] documented as of this encounter Discharge Instructions Ozzy Kent MD - 12/15/2017Home and rest Drink plenty of fluids Starks for pain control Return here or see [...] | | | | order to [facility]. | | | | | [...] | | | | | | | [facility]. | | | | [...] encounter ED Notes Ozzy Louis MD - 12/15/2017 7:24 AM PDTFormatting of this note might be differe nt from the original. [facility] Rosario Malik Emergency Department Encounter Note [address] [place] [id number] PCP:Yong Cherry DO [phone] DIAGNOSIS: 1. Lower abdominal pain CHIEF COMPLAINT: Chief Complaint Patient presents with Abdominal Pain low Urinary Complaint Mode of Arrival: walk-in ED Room: ED09 [facility] Rosario Malik is a 52 y.o. female who presents to the Emergency Department for evaluation of abdominal pain. She had the onset yesterday of a lower abdominal pain which was present throughout most of the day and continues this morning. She has not had chills but has not measured her fever. She has not had nausea, vomiting, diarrhea, or blood in her stools. Sh e states that she does not have any dysuria but after she urinates the abdominal pain seems to worsen at times. She has had a previous hysterectomy with bilateral salpingo-oophorectom y but still has her appendix and gallbladder. She has not had shortness of breath beyond he r baseline. She does use chronic oxygen. PAST MEDICAL & SURGICAL HISTORY Patient Active Problem List Diagnosis Date Noted Palpitations Priority: High Note Last Updated: 10/21/2016 Echocardiogram, 08/23/2013 at [facility] shows normal systolic left ventricular and [...] MD. COPD (chronic obstructive pulmonary disease) ([facility]) 11/14/2011 Priority: Medium Hypothyroidism Priority: Medium [...] ICD-10 Record update Fibromyalgia 12/14/2009 Priority: Low Hypotension due to medication 09/17/2017 Dizziness 05/01/2016 Impaired mobility and activities of [...] emphysema (HCC) Note Last Updated: 07/12/2014 PLRU [id number] Decision Migraine Allergic rhinitis 06/18/2013 Hypoxemia 04/27/2013 Sprain of chest wall 04/12/2013 Insomnia 02/22/2013 Diverticulosis 01/25/2013 Multiple personality disorder (HCC) GERD (gastroesophageal reflux disease) Benign neoplasm of pituitary gland and craniopharyngeal duct (pouch) (HCC) 10/28/2012 Note Last Updated: 04/27/2013 Overview: Managed by [facility] along with hypothyroidism Status post total hysterectomy 10/20/2012 Irritable colon 10/20/2012 GARRY (obstructive sleep apnea) 05/23/2012 Preventative health care 03/11/2012 Note Last Updated: 03/11/2012 [facility] 04/12/2010 Diverticulosis Next Colonoscopy Mammo Pap Past Surgical History: Procedure Laterality Date COLONOSCOPY 03/2010 COLONOSCOPY 1995 [facility] HAMMER TOE SURGERY right sided HERNIA REPAIR 11/29/2015 [facility] HIATAL HERNIA REPAIR Hiatal hernia HYSTERECTOMY KNEE SURGERY right OTHER SURGICAL HISTORY 02/28/2014 [facility] with Radial approach; Laterality: Left; Surgeon: Jared Mcdonough MD; Location: [facility] CARDIO VASCULAR LAB MILES AND BSO Ovarian cysts, not cancer TONSILLECTOMY Age 6 TURBT N/A 11/22/2015 Procedure: Cystoscopy, Hydrodistention & Bladder Biopsy; Surgeon: Andriy Amaya MD ; Location: [facility] MAIN OR WRIST SURGERY right CURRENT MEDICATIONS Previous Medications ADVAIR HFA 230-21 [...] 800 mg by mouth 3 times daily. HYDROXYZINE HYDROCHLORIDE (ATARAX) 25 MG TABLET Take [...] takes this da rigoberto RESPIRATORY THERAPY SUPPLIES MISC Change CPAP back to 11-14 cm H2O. All necessary suppl ies. No oxygen bleed in. Diagnosis Code(s)327.23. Length of Need: Lifetime. Please send orde r to [facility]. This is not a new order, just a change in settings. RESPIRATORY THERAPY SUPPLIES [facility] Please provide patient with necessary CPAP supplies ( she did not specify, okay to send order as appropriate) Diagnosis Code(s)327.23 . Length of Need 99 months. Please send order to [facility]. ROFLUMILAST (DALIRESP) 500 MCG TABLET Take 1 [...] 1 Years of education: 13 Occupational History Disabled Social History Main Topics Smoking status: Former Smoker Packs/day: 0.30 Years: 30.00 Types: Cigarettes Quit date: 08/03/2014 Smokeless tobacco: Never Used Alcohol use 0.6 oz/week 1 Glasses of wine per week Comment: yearly Drug use: No Comment: perviously used marijuana and speed in high school. Last marijuana 2009 Sexual activity: No Other Topics Concern Not on file [...] PHYSICAL EXAM VITAL SIGNS: (first vital signs):Temp: 36.4 C (97.5 F) Pulse: 89 Resp: 18 SpO2: 98 % BP : 106/89 Body mass index is 30.42 kg/m. Constitutional: Moderately uncomfortable female patient. HEENT: Atraumatic, PERRL, Oropharynx benign. Neck: Supple with full range of motion. No JVD and no lymphadenopathy Chest: Good air movement bilaterally. End-expiratory wheezes, No, rales. Cardiovascular: Normal S1 S2 Abdomen: Soft with bilateral lower abdominal tenderness, right greater than left. No uppe r abdominal tenderness, no rebound, guarding, or masses, bowel tones normal and no pulsatile masses. Back: Within normal limits and no CVA tenderness Extremities: Nontender. No lower extremity edema, no calf asymmetry. Present distal pulse s. Skin: Warm, Dry, No rashes Neurologic: Alert & oriented. No focal deficits, Gait and speech are normal Psychiatric: Normal mood, affect and judgement. LABS Results for orders placed or performed during the hospital encounter of 12/15/17 Urinalysis, Microscopic Only, with Culture if Indicated Result Value Ref Range WBC UA 0-2 0 - 2 /HPF RBC UA 0-2 0 - 2 /HPF SQUAMOUS EPITHELIAL UA 25-50 (A) 0 - 2 /LPF BACTERIA UA 1+ (A) Negative /HPF MUCUS UA Present (A) Negative /LPF CBC with Differential Result Value Ref Range WBC 12.8 (H) 4.0 - 11.0 K/uL RBC 4.66 3.70 - 5.20 M/uL Hgb 12.2 11.5 - 16.0 g/dL Hct 37.9 34.0 - 47.0 % MCV 81.3 (L) 83.0 - 101.0 fL MCH 26.2 (L) 28.0 - 35.0 pg MCHC 32.2 32.0 - 36.0 g/dL RDW-CV 13.8 <15.0 % RDW-SD 40.7 35.1 - 46.3 fL Platelet Count 487 (H) 140 - 440 K/uL MPV 8.6 6.5 - 12.4 fL % Neutrophils 58.7 45.0 - 82.0 % % Lymphocytes 31.7 20.0 - 45.0 % % Monocytes 6.6 4.0 - 12.0 % % Eosinophils 2.0 0.0 - 5.0 % % Basophils 0.5 0.0 - 1.0 % % Immature granulocytes 0.5 (H) 0.0 - 0.4 % Absolute Neutrophils 7.52 1.80 - 8.50 K/uL Absolute Lymphocytes 4.06 (H) 0.60 - 3.20 K/uL Absolute Monocytes 0.84 0.00 - 1.00 K/uL Absolute Eosinophils 0.26 0.00 - 0.40 K/uL Absolute Basophils 0.06 0.00 - 0.10 K/uL Absolute Imm. Granulocytes 0.06 (H) 0.00 - 0.03 K/uL nRBC 0 0 - 2 per 100 WBC's NRBC ABS 0.00 0.00 - 0.01 K/uL Comprehensive Metabolic Panel Result Value Ref Range NA 139 136 - 149 mmol/L K 3.8 3.5 - 5.1 mmol/L CL 106 98 - 109 mmol/L CO2 22 (L) 24 - 31 mmol/L ANION GAP 11 3 - 16 mmol/L GLUCOSE 150 (H) 70 - 109 mg/dL BUN 4 (L) 7 - 18 mg/dL Creatinine, Serum/Plasma 0.79 0.60 - 1.30 mg/dL eGFR if not >60 >=60 mL/min/1.73m2 CALCIUM 8.4 8.3 - 10.5 mg/dL ALBUMIN 3.1 (L) 3.2 - 5.0 g/dL Bilirubin Total 0.5 0.1 - 1.5 mg/dL Total protein 5.7 (L) 6.0 - 7.8 g/dL AST 30 10 - 42 U/L ALT 16 6 - 45 U/L ALK PHOS 77 40 - 110 U/L GLOBULIN 2.6 2.1 - 3.8 g/dL Albumin/Globulin ratio 1.2 0.8 - 2.0 BUN/CREA 5.1 POCT Urinalysis Dipstick Automated Result Value Ref Range Color, UA, POC Yellow Yellow, Light Yellow Clarity, UA, POC Clear Glucose, UA, POC Negative Negative Bilirubin, UA, POC Negative Negative Ketones, UA, POC Negative Negative, 100 mg/dL Specific [place], UA, POC 1.005 1.001 - 1.030 Blood, UA, POC Negative Negative pH, UA, POC 6.0 5.0, 6.0, 7.0, 8.0, 5.5, 6.5, 7.5 Protein, UA, POC Negative Negative Urobilinogen, UA, POC 0.2 0.2, Negative, Normal, < 0.2 mg/dL, 1 mg/dL, < 0.2 E.U./dl, 1.0 E.U./dL, 0.2 mg/dL Nitrite, UA, POC Negative Negative Leukocyte Esterase, UA, POC Negative Negative RED SUB UA ICTOTEST Negative REMARK IMAGING STUDIES (X-Rays interpreted by ED Physician) Radiology Interpretations: Ct Abdomen Pelvis W Contrast IMPRESSION - No acute findings. Postoperative changes at gastroesophageal junction. Dictate d and Signed by: Kobe Lentz MD Electronically signed: 12/15/2017 8:31 AM ED COURSE & MEDICAL DECISION MAKING Pertinent Labs & Imaging studies were reviewed along with EMS notes and long-term record s if applicable. (See chart for details) Medications and Allergy list reviewed. Nurses note and old records were reviewed The patient was seen and examined, IV was started and labs were sent. The patient received some IV fluids along with pain medications with improvement. Her laboratory studies showed a slightly elevated white blood cell count but were otherwise unremarkable. CT was obtaine d and showed no acute findings. She states she has felt this way in the past with diverticu litis but I do not see any evidence of that at this time. We will treat her with some pain medication and rest. I would like her to have her recheck with her primary care provider in the next couple of days if she is not improving and she can certainly return to the emergen cy department if her symptoms worsen. Follow up information and return precautions were discussed in detail at the bedside prior to discharge and all questions were answered. Last Set of Vital Signs: Temp: 36.4 C (97.5 F) Pulse: 66 Resp: 18 SpO2: 97 % BP: 106/89 FINAL IMPRESSION ICD-10-CM ICD-9-CM 1. Lower abdominal pain R10.30 789.09 Follow-up Information Yong Cherry DO In 2 days. Specialty: Family Medicine - Adult Medicine Why: If not improving Contact information: [address] [place] [address] New Prescriptions HYDROCODONE-ACETAMINOPHEN (NORCO) 5-325 MG PER TABLET Take 1-2 tablets by mouth EVERY 4 TO 6 HOURS NEEDED for Pain. Administrations This Visit iohexol (OMNIPAQUE 350) 350 mg/mL injection 85 mL Admin Date 12/15/2017 Action Given Dose 85 mL Route Intravenous Administered By Sky Fisher, Technologist morphine injection 4 mg Admin Date 12/15/2017 Action Given Dose 4 mg Route Intravenous Administered By Ximena Smith, NAYELI sodium chloride 0.9% (NS) bolus 500 mL Admin Date 12/15/2017 Action New Bag Dose 500 mL Rate 500 mL/hr Route Intravenous Administered By Ximena Smith RN Portions of this chart were created with [employer] voice recognition software. Inadvertent so und alike substitutions may be present and are unintentional Ozzy Louis MD 12/15/17 09 Matt Dhillon RN - 12/15/2017 7:01 AM PDTPt presents to the er co low abd pain and urinary discomfort this am. Pt denies fevers. Pt worried that she might have a UTI. documented in this encounter Plan of Treatment [...] [place] | | | | | | [address] | | | | | | | | +--------+---------+ + + + | 11/24/ | Office | Cardiology | Flores, | | | 2019 | Visit | | SINDHU Erickson [address] | | | | | | [place], | | | | | | [place] [address] | | | | | | [phone] | | | | | | | | +--------+---------+ + + + | 03/01/ | Office | Pulmonology | Mukul Clark MD | | | 2020 | Visit | | [address] | | | | | | [place] | | | | | | [address] | | | | | | | [...] | | n - | | | 12/15/ | | | 2017 | | | 6:58 | | | [...] W?MRN: | | | | | | [id number] | | | [id number] | | | his | | | [...] | | Oumou | | | d 6 0 | [...] | | | [place] | | | [facility], | | | [place] - | | | [email or web address] | | | ollect | | | ivemed | | | icalte | | | [email or web address] | | | | +---+--------+ documented in [...] | 0.79 | 0.60 - 1.30 | [facility] | | | | | mg/dL | [facility] | | | | | | [facility] | | | | | | CENTER - | | | | | | LABORATORY | | + + + + + + | eGFR, | >60Comment: GLOMERULAR | >=60 | [facility] | | | non- | FILTRATION | mL/min/1.73m2 | [facility] | | | Maur[place] | RATE,ESTIMATED | | MEDICAL | | | | mL/min/1.42c6Wnwg than | | CENTER - | | [...] | | | Protein | | | [facility] | | [...] [address] | [place] | [phone] | | [facility] | | [address] | | | - LABORATORY | | | | + + + + + CBC with Differential (12/15/2017 7:49 AM PDT) + + + + + + | Component | Value | Ref Range | Performed | Pathologist | | | | | At | Signature | + + + + + + | White Blood | 12.8 (H) | 4.0 - 11.0 K/uL | [facility] | | | Cells | | | [facility] | | | | | | MEDICAL | | | | | | CENTER - | | | | | | LABORATORY | | + + + + + + | Red Blood | 4.66 | 3.70 - 5.20 | [...] + | [facility] | [address] | [place] | [phone] | | [facility] | | [address] | | | - LABORATORY | | [...] + + + + | Squamous | 25-50 (A) | 0 - 2 [...] ST. | [address] | [place], [place] | [phone] | | [facility] | | [address] | | | - LABORATORY | | [...] 1.001 - 1.030 | | | | [place], | | | | | | UA, [...] PDT | | | | | Starting Fri12/15/17 at 0820, | | | | | [...]
--- OUTSIDE RECORDS SUMMARY | ~2019-09-27 | XMS | Encounter Summary ---
Demographics + + + | Address | [address] | | | [place] [address] | + + + | Home Phone [...] Team Providers + +------+ + | Care Endoscopy Rn Name | Role | Phone | + [...] + + | 08/23/ | Telephone | [facility] | Jared Mcdonough, | Records Request | | 2013 | | CARDIOLOGY [address] | [address] [place] | | | | | [place], | [place], | | | | | [place] [address] | [place] [address] | | | | | [phone] | [phone] | | | | | | | [...] PM PDTFaxed to attention Dr. Lee at [facility] fax number [phone]: Chart Notes 08-12-13 Dr Sanchez Requested by [...] [place] | | | | | | [place] | | | | | | [address] | | | | | | | | +--------+---------+ + + + | 11/24/ | Office | Cardiology | Flores, | | | 2019 | Visit | | SINDHU Erickson [address] | | | | | | [place], | | | | | | [place] [address] | | | | | | [phone] | | | | | | | | +--------+---------+ + + + | 03/01/ | Office | Pulmonology | Mukul Clark MD | | | 2020 | Visit | | [address] | | | | | | [place] | | | | | | [address] | | | | | | | | +--------+---------+ + + + documented as of this encounter Visit Diagnoses Not on filedocumented in this encounter"
--- OUTSIDE RECORDS SUMMARY | ~2019-09-27 | XMS | Encounter Summary ---
Demographics + + + | Address | [address] | | | [place] [address] | + + + | Home Phone [...] Providers + +------+ + | Care Community Midwife Name | Role | Phone | + [...] | | CARDIOLOGY [address] | Georgina, APPLIANCE INSTALLER [address] | tachycardia (HCC); | | | | [place], | [place], | Encounter for lipid | | | | [place] [address] | [place] [address] | screening for | | | | [phone] | [phone] | cardiovascular | | | | | [...] | | | | | | [place] [address] | | | | | | [phone] | | | | | | | | +--------+---------+ + + + | 03/01/ | Office | Pulmonology | Amber, Mukul, MD | | | 2020 | Visit | | [address] | | | | | | [place] | | | | | | [address] | | | | | | | | +--------+---------+ + + + documented as of this encounter Visit Diagnoses + + | Diagnosis | + + | Paroxysmal atrial tachycardia (HCC) Paroxysmal supraventricular tachycardia | + + | Encounter for lipid screening for cardiovascular disease | + + documented in this encounter"
--- OUTSIDE RECORDS SUMMARY | ~2019-09-27 | XMS | Encounter Summary ---
Demographics + + + | Address | [address] | | | [place] [address] | + + + | Home Phone [...] + +------+ + | Care Business Development Coordinator Name | Role | Phone | + +------+ + | Juan Cherry DO | PCP | | + +------+ + Reason for Visit + +--------+ + | Reason | Onset | Comments | | | Date | | + +--------+ + | Medication Refill | 03/13/ | | | | 2019 | | + +--------+ + Encounter Details +--------+--------+ + + + | Date | Type | Department | Care Team | Description | +--------+--------+ + + + | 03/13/ | Refill | [facility] [place] | [place], | Medication Refill | | 2019 | | CARDIOLOGY [address] | SINDHU Erickson [address] | | | | | [place], | [place], | | | | | [place] [address] | [place] [address] | | | | | [phone] | [phone] | | | | | | | [...] [place] | | | | | | [address] | | | | | | | | +--------+---------+ + + + | 11/24/ | Office | Cardiology | Flores, | | | 2019 | Visit | | SINDHU Erickson [address] | | | | | | [place] | | | | | | [place] [address] | | | | | | [phone] | | | | | | | [...]
--- OUTSIDE RECORDS SUMMARY | ~2019-09-27 | XMS | Encounter Summary ---
Demographics + + + | Address | [address] | | | [place] [address] | + + + | Home Phone [...] Team Providers + +------+ + | Care Wellness Trainer Name | Role | Phone | + +------+ + PCP | Unavailable | + +------+ + Encounter Details +--------+ + + + + | Date | Type | Department | Care Team | Description | +--------+ + + + + | 01/24/ | [facility] | [facility] | | | | 2008 - | Encounter | MED CTR OP REHAB | | | | | | [address] [place] | | | | 02/23/ | | [place] [address] | | | | 2008 | | [phone] | | | +--------+ + + + [...] | | | | | | [place] [address] | | | | | | [phone] | | | | | | | | +--------+---------+ + + + | 03/01/ | Office | Pulmonology | Mukul Clark MD | | | 2020 | Visit | | [address] | | | | | | [place] | | | | | | [address] | | | | | | | | +--------+---------+ + + + documented as of this encounter Visit Diagnoses Not on filedocumented in this encounter"
--- OUTSIDE RECORDS SUMMARY | ~2019-09-27 | XMS | Encounter Summary ---
Demographics + + + | Address | [address] | | | [place] [address] | + + + | Home Phone [...] Team Providers + +------+ + | Care Debt And Budget Counselor Name | Role | Phone | + +------+ + PCP | Unavailable | + +------+ + Encounter Details +--------+ + + + + | Date | Type | Department | Care Team | Description | +--------+ + + + + | 12/29/ | [facility] | [facility] | | | | 2008 - | Encounter | MED CTR OP REHAB | | | | | | [address] [place] | | | | 01/23/ | | [place] [address] | | | | 2008 | | [phone] | | | +--------+ + + + [...] | | | | | | [place] | | | | | | [address] | | | | | | | | +--------+---------+ + + + | 11/24/ | Office | Cardiology | Flores, | | | 2019 | Visit | | SINDHU Erickson [address] | | | | | | [place] | | | | | | [place] [address] | | | | | | [phone] | | | | | | | | +--------+---------+ + + + | 03/01/ | Office | Pulmonology | Mukul Clark MD | | | 2020 | Visit | | [address] | | | | | | [place] | | | | | | [address] | | | | | | | | +--------+---------+ + + + documented as of this encounter Visit Diagnoses Not on filedocumented in this encounter"
--- OUTSIDE RECORDS SUMMARY | ~2019-09-27 | XMS | Encounter Summary ---
Demographics + + + | Address | [address] | | | [place] [address] | + + + | Home Phone [...] Team Providers + +------+ + | Care Resume Specialist Name | Role | Phone | + +------+ + PCP | Unavailable | + +------+ + Encounter Details +--------+ + + + + | Date | Type | Department | Care Team | Description | +--------+ + + + + | 08/18/ | Hospital | [facility] | Lencho Goss MD | | | 2000 | Encounter | MED CTR XRAY [address] | [address] | | | | | [place] | [address] [place], [place] | | | | | [place] [address] | [address] | | | | | [phone] | | | +--------+ + + + [...] | | | | | | [place] [address] | | | | | | [phone] | | | | | | | | +--------+---------+ + + + | 03/01/ | Office | Pulmonology | Mukul Clark MD | | | 2020 | Visit | | [address] | | | | | | [place] | | | | | | [address] | | | | | | | | +--------+---------+ + + + documented as of this encounter Visit Diagnoses Not on filedocumented in this encounter"
--- OUTSIDE RECORDS SUMMARY | ~2019-09-27 | XMS | Encounter Summary ---
Demographics + + + | Address | [address] | | | [place] [address] | + + + | Home Phone [...] Team Providers + +------+ + | Care Lastex Operator Name | Role | Phone | + +------+ + | Ozzy Delcid MD | PCP | | + +------+ + Encounter Details +--------+ + + + + | Date | Type | Department | Care Team | Description | +--------+ + + + + | 09/28/ | Hospital | [facility] | Ozzie Hayes | | | 2011 | Encounter | MED CTR EMERGENCY | MD Ran [address] | | | | | [place] [address] | | | | | [place], [place] | [place] [address] | | | | | [address] | [phone] | | | | | [phone] | | | +--------+ + + + [...] encounter ED Notes Ozzie Hayes MD - 09/29/2011 6:24 AM PDTDATE: 09/29/2011 DATE: TIME OF EXAM: 639. REASON FOR PRESENTATION: Right second toe injury. HISTORY OF PRESENT ILLNESS: The patient is a 46-year-old female who stubbed his toe this mo rning [facility] to arrival. Complains of pain primarily around second toe. No other injuries o r traumas. No open wo unds or lacerations. No weakness or numbness. PAST MEDICAL HISTORY: Fibromyalgia, osteoarthritis. COPD. FAMILY HISTORY: Noncontributory. SOCIAL HISTORY: Smokes cigarettes. Denies alcohol or street drug use. MEDICATIONS 1. Albuterol. 2. Cymbalta. 3. Advair. 4. Neurontin. 5. Synthroid. 6. Tramadol. 7. Geodon. ALLERGIES: ERYTHROMYCIN nonsteroidal anti-inflammatory medicines. REVIEW OF SYSTEMS: As noted in HPI. PHYSICAL EXAMINATION VITAL SIGNS: Blood pressure 170/60, heart rate 93, respiratory rate 16, temperature 97.6, o xygen satu ration 96%. GENERAL: The patient nontoxic appearing, in no acute distress. HEENT: Normocephalic. Oropharynx moist and patent. LUNGS: The patient is in no respiratory distress. SKIN: Intact without rashes or lesions, no swelling. EXTREMITIES: Right second toe tenderness to palpation states toe. X-ray of the foot reveals a chip fracture proximal phalanx of the right second toe. DIAGNOSIS: RIGHT SECOND TOE FRACTURE. PLAN: The patient given a cast shoe. Provided with Tylenol with codeine referred to followu p with [facility] doctor. Return here with new or worsening symptoms. DICTATED BY: Ozzie Hayes MD Emergency Medicine JOB #: [id number] EXT JOB #:[id number] <Electronicall y Signed by Ozzie Hayes MD> 10/11/11 0640 documented in this encounter Plan of Treatment [...] | | | | | | [address] [place] | | | | | | [place] [address] | | | | | | [phone] | | | | | | | | +--------+---------+ + + + | 03/01/ | Office | Pulmonology | Mukul Clark MD | | | 2020 | Visit | | [address] | | | | | | [place] | | | | | | [address] | | | | | | | [...] + + + | [facility] Diagnostic Imaging Department | [facility] | | [address] [facility] | [facility] | | RIGHT FOOT: CLINICAL [...] Transcribed Date/Time: 09/29/2011 13:00 | | | Health Plan Manager: <Electronically Signed by Cesar Singh | | | MD Mikal> 09/29/11 2146 | | + + + + + | Procedure Note | + + | Reed, Rad Conversion - 04/02/2013 5:48 PM [facility] | | Diagnostic Imaging Department [address] [place] [address] | | RIGHT FOOT: CLINICAL HISTORY: Trauma. [...] by Cesar Singh | | MD Mikal> 09/29/112145 | |other fracture is seen. There is [...] 12:39 | |Transcribed Date/Time: 09/29/2011 13:00 | |Health Plan Manager: | |<Electronically Signed by Cesar Ren MD> 09/29/112145 | + + + +---------+ + + [...]
--- OUTSIDE RECORDS SUMMARY | ~2019-09-27 | XMS | Encounter Summary ---
Demographics + + + | Address | [address] | | | [place] [address] | + + + | Home Phone [...] Team Providers + +------+ + | Care Cytogenetics Laboratory Manager Name | Role | Phone | + +------+ + | Juan Cherry DO | PCP | | + +------+ + Encounter Details +--------+---------+ + + + | Date | Type | Department | Care Team | Description | +--------+---------+ + + + | 10/22/ | Office | [facility] | Jared Mcdonough, | Chronic obstructive | | 2017 | Visit | MED CTR CARDIAC | [address] | pulmonary disease, | | | | REHABILITATION [address] | [place], | unspecified COPD | | | | [address] [place] | [place] [address] | type (HCC) (Primary | | | | [place] [address] | [phone] | Dx); Mild persistent | | | | [phone] | | asthma without | | | [...] | | | | | | [place] [address] | | | | | | [phone] | | | | | | | | +--------+---------+ + + + | 03/01/ | Office | Pulmonology | Mukul Clark MD | | | 2020 | Visit | | [address] | | | | | | [place] [facility] | | | | | | [address] | | | | | | | [...]
--- OUTSIDE RECORDS SUMMARY | ~2019-09-27 | XMS | Encounter Summary ---
Demographics + + + | Address | [address] | | | [place] [address] | + + + | Home Phone [...] Team Providers + +------+ + | Care Unclaimed Property Officer Name | Role | Phone | [...] | esophagitis | [address] | [place] | | | | | presence not | [place], [place] | [place], | | | | | specified | [address] | [place] [address] | | | | | Procedures | Phone: | Phone: | | | | | [place] Gastric | [phone] | [phone] | | | | | Emptying | Fax: | Fax: | | | | | | [phone] | [phone] | +--------+--------+ + + + + Encounter Details +--------+ + + + + | Date | Type | Department | Care Team | Description | +--------+ + + + + | 04/02/ | Hospital | [facility] | Dio Yun | | | 2017 | Encounter | MED CTR NUCLEAR | MD [address] | | | | | MEDICINE [address] | [place] [address] | | | | | [place], | [place], [place] | | | | | [place] [address] | [address] | | | | | [phone] | [phone] | | | | | | | [...] | | | | order to [facility]. | | | | | + [...] | | | | | | [facility]. | | | | | | | [...] | 0 | 10/13/19 | | | [facility] | mouth as needed. | | | 16 | 7 | | -Cod [id number] MG | | | | | | [...] | | | | | | [place] [address] | | | | | | [phone] | | | | | | | | +--------+---------+ + + + | 03/01/ | Office | Pulmonology | Mukul Clark MD | | | 2020 | Visit | | [address] | | | | | | [place] | | | | | | [address] | | | | | | | [...] [place]ide Results In - 04/02/2016 11:38 AM [facility] NUCLEAR GASTRIC EMPTYING STUDY 04/02/2016 | [...]
--- OUTSIDE RECORDS SUMMARY | ~2019-09-27 | XMS | Encounter Summary ---
Demographics + + + | Address | [address] | | | [place] [address] | + + + | Home Phone [...] Providers + +------+ + | Care Air And Water Filler Name | Role | Phone | + +------+ + | Juan Cherry DO | PCP | | + +------+ + Reason for Visit +--------+--------+ + | Reason | Onset | Comments | | | Date | | +--------+--------+ + | Other | 04/27/ | | | | 2012 | | +--------+--------+ + Encounter Details +--------+ + + + + | Date | Type | Department | Care Team | Description | +--------+ + + + + | 04/27/ | Telephone | [facility] [place] | Marilyn Osborne, | Other | | 2012 | | PULMONARY [address] | RN | | | | | [place], | | | | | | [place] [address] | | | | | | [phone] | | | +--------+ + + + [...] Telephone Encounter - Marilyn Osborne RN - 04/27/2012 12:17 PM Graham Ponce and acacia singleton Dr London that she needs to change the CPAP pressure to 11-14 cm H2O and follo w up with Maxim Delgado. Okay per Rosario and she has an appointment with Maxim faria.Elect ronically signed by Marilyn Osborne RN at 04/27/2012 12:19 PM PSTdocumented in this encoun ter Plan of Treatment +--------+---------+ + + + [...] | | | | | | [place] [address] | | | | | | [phone] | | | | | | | [...]
--- OUTSIDE RECORDS SUMMARY | ~2019-09-27 | XMS | Encounter Summary ---
Demographics + + + | Address | [address] | | | [place] [address] | + + + | Home Phone [...] Providers + +------+ + | Care Bit Tripoler Name | Role | Phone | + [...] + + | 11/06/ | Office | [facility] | [place], | Palpitations | | 2017 | Visit | CARDIOLOGY [address] | [address] Ericks[address] | (Primary Dx); | | | | [place], | [place], | Paroxysmal atrial | | | | [place] [address] | [place] [address] | tachycardia (HCC); | | | | [phone] | [phone] | Chest pain, | | | | [...] encounter Progress Notes Georgina Tanner ARNP - 11/06/2016 2:15 PM PDTFormatting of this [...] 2 times daily. She takes this [facility] Respiratory Therapy Supplies MISC Please provide patient [...] 25 BPM QT has shortened Confirmed by DANIEL PAUL, CLAY ([id number]) on 10/16/2016 4:31:30 PM LAB RESULTS reviewed during visit today primarily from [facility]: LIPID Lab Results Component Value [...] PLTEX 370 07/11/2014 I reviewed records from [facility] for Holter report on 10/18/2016 [...] She was seen at the ED of [facility] 3 weeks ago and again 1 [...] She is in a class II of [employer] functional class. There is no [...] and v entricular function done at the [facility] [...] this chart may have been created with Khush voice recognition software. Occasi onal wrong-word or [...] [place] | | | | | | [address] | | | | | | | | +--------+---------+ + + + | 11/24/ | Office | Cardiology | [place], | | | 2019 | Visit | | SINDHU Erickson [address] | | | | | | [place], | | | | | | [place] [address] | | | | | | [phone] | | | | | | | | +--------+---------+ + + + | 03/01/ | Office | Pulmonology | Mukul Clark MD | | | 2020 | Visit | | [address] | | | | | | [place] | | | | | | [address] | | | | | | | [...]
--- OUTSIDE RECORDS SUMMARY | ~2019-09-27 | XMS | Encounter Summary ---
Demographics + + + | Address | [address] | | | [place] [address] | + + + | Home Phone [...] Providers + +------+ + | Care Equipment Man Name | Role | Phone | + +------+ + | Juan Cherry DO | PCP | | + +------+ + Encounter Details +--------+ + + + + | Date | Type | Department | Care Team | Description | +--------+ + + + + | 08/18/ | Hospital | [facility] | Mukul Clark MD | Abnormal lung | | 2020 | Encounter | MED CTR PULMONARY | [address] | function test | | | | FUNCTION [address] | [address] [place] | | | | | [place], | [address] | | | | | [place] [address] | | | | | | [phone] | | | +--------+ + + + [...] + + +---------+ + + | albuterol | Inhale 2 puffs into | 1 | 11 | /02/12 | | | (VENTOLIN HFA) 90 | the lungs every 4 | Inhaler | | 19 | | | mcg/puff | hours as needed for | | | | | | inhalerIndications: | Wheezing. | | | | | | Centrilobular | | | | | | | emphysema (HCC) | | | | | | + + + +---------+ + + | ascorbic acid | Take 250 mg by mouth | | 0 | | | | (VITAMIN C) 250 MG | Daily. | | | | | | tablet | | | | | | + + + +---------+ + + | eszopiclone | Take 3 mg by mouth | | 0 | 05//20 | | | (LUNESTA) 3 MG TABS | nightly. | | | 20 | | + + + +---------+ + + | ferrous sulfate | Take 325 mg by mouth | | 0 | | | | 325 mg tablet | daily (with | | | | | | | breakfast). | | | | | + + + +---------+ + + | fluticasone | 1 spray by Nasal | | 0 | | | | (FLONASE) 50 | route Daily. | | | | | | mcg/nasal spray | | | | | | + + + +---------+ + + | | Inhale 2 puffs into | 3 | 3 | 08/09/19 | | | fluticasone-salmeter | the lungs 2 times | Inhaler | | 20 | | | ol (ADVAIR HFA) | [...] +---------+ + + | levothyroxine | Take 1 tablet by | 90 | 3 | 09/08/19 | | | (SYNTHROID) 75 MCG | mouth every morning | tablet | | 19 | | | tablet | (before breakfast). | [...] + + + +---------+ + + | montelukast | Take 10 mg by mouth | | 0 | 06/25/19 | | | (SINGULAIR) 10 mg | Daily. | | | 20 | | | tablet | | | [...] +---------+ + + | pantoprazole | TAKE ONE TABLET BY | 90 | 3 | 03/08/19 | | | (PROTONIX) 40 mg | MOUTH EVERY DAY IN | tablet | | 20 | | | tablet | THE MORNING WITH | | | | | | | BREAKFAST. | | | | | + + + +---------+ + + | predniSONE | Take 1 tablet by | 30 | 11 | 08/09/19 | | | (DELTASONE) 10 mg | mouth Daily. | tablet | | 20 | | | tablet | | | [...] | | | | order to [facility]. | | | | | + + [...] | | send order to [facility] | | | | | | | [facility]. | | | | | | [...] tablet by | 90 | 3 | 09/22/19 | | | (SWATHI-MARIA LUZ M20) 20 | mouth Daily. | tablet | | 19 | 0 | | mEq ER tablet | | | | | | + + + +---------+ + + | VENTOLIN HFA 108 | INHALE TWO PUFFS BY | 1 | 5 | 06/21/19 | | | (90 Base) MCG/ACT | MOUTH EVERY 4 HOURS | Inhaler | | 20 | 0 | | inhalerIndications: | NEEDED FOR | | | | | | Centrilobular | WHEEZING OR | | | | | | emphysema (HCC) | SHORTNESS OF BREATH. | | | | | + + + +---------+ + + documented as of this encounter Procedure Notes Kevin Sandoval MD - 08/19/2019 10:15 AM PDTAssociated Order(s): PFT PULMONARY FUNCTION TESTING ORDERSProcedure(s): PFT PULMONARY FUNCTION TESTING ORDERSPre-Procedure Diagnose(s): Abnormal lung function test PULMONARY FUNCTION TESTING SPIROMETRY: The prebronchodilator FVC was 3.20 L or 103 % of predicted. The prebronchodilat or FEV1 was 1.51 L or 59 % of predicted. FEV1/FVC ratio was 47 %. Following inhalation of a lbuterol the patient's FEV1 eric to 1.89, 74% of predicted. This represents 380 mL of impro vement or 25%. LUNG VOLUMES: The total lung capacity was 5.67 L or 117 % of predicted. The residual volume was 2.27 L or 129 % of predicted. RV/TLC ratio was 111 % of predicted. DIFFUSION CAPACITY: The diffusion capacity was 18.5 mL/mmHg per minute or 75 % of predicted . IMPRESSION: Spirometry is consistent with moderately severe obstructive physiology that bec omes mild following inhalation of bronchodilators. Lung volume testing is consistent with sravani rderline gas trapping physiology. Diffusion capacity is borderline abnormal and is not corre cted for measured hemoglobin. Compared to pulmonary function test performed 02/28/2016 postbronchodilator FEV1 has increase d 32% and the uncorrected DLCO has increased 13%. Test performed: 08/19/2019 Electronically signed by: Kevin Sandoval MD, MD 08/19/2019 12:[address] [facility] signed by Kevin Sandoval MD at 12:29 PM PDTdocumented in this encounter Plan of [...] | | | | | | [place] [address] | | | | | | [phone] | | | | | | | | +--------+---------+ + + + | 03/01/ | Office | Pulmonology | Mukul Clark MD | | | 2020 | Visit | | [address] | | | | | | [place] | | | | | | [address] | | | | | | | [...] in this encounter Results Pulmonary function test full [...] MD, | | | 08/19/2019 12:26 PM [facility] | | |obstructive physiology that [...] | |Electronically signed by: Kevin Sandoval MD, MD 08/19/2019 | | |12:26 PM PDT | | |[facility] | | + + + documented in this encounter Visit Diagnoses + + | Diagnosis | + + | Abnormal lung function test Nonspecific abnormal results of pulmonary system function | | study | + + documented in this encounter Administered Medications + +--------+ +---------+------+------+ | Medication Order | MAR | Action | Dose | Rate | Site | | | Action | Date | | | | + +--------+ +---------+------+------+ | albuterol 90 mcg/puff inhaler 4 | Given | 08/19/19 | 4 puffs | | | | puff 4 puff, Inhalation, RT | | 20 10:52 | | | | | Once, [facility] 08/19/19 at 1030, For 1 | | AM PDT | | | | | dose, Shake well. Use with | | | | | | | spacer., | | | | | | + +--------+ +---------+------+------+ +---+---+ | | | +---+---+ documented in this encounter"
--- OUTSIDE RECORDS SUMMARY | ~2019-09-27 | XMS | Encounter Summary ---
Demographics + + + | Address | [address] | | | [place] [address] | + + + | Home Phone [...] Providers + +------+ + | Care Market Research Associate Name | Role | Phone | [...] | Concussion | Aaron Kim MD | Deliverer Outside [address] | | | Required | | with brief | [address] | [place] | | | | | loss of | [address] | [place], [place] | | | | | consciousnes | [place], | [address] | | | | | s Word | [place] [address] | Phone: | | | | | finding | Phone: | [phone] | | | | | difficulty | [phone] | Fax: | | | | | [id number] | Fax: | [phone] | | | | | (ICD-10-CM) | [phone] | | | | | | - [...] + + | 07/18/ | Hospital | [facility] | Aaron Rodriguez, | Canceled (Illness) | | 2017 | Encounter | MED CTR SPEECH | [address] | | | | | THERAPY [address] | [place] | | | | | [place], | [address] | | | | | [place] [address] | | | | | | [phone] | Cesia Su | | | | | | M, Speech | | | | | | Pathologist [address] | | | | [address] [place] | | | | | | [place] [address] | | | | | | [phone] | | | | | | | [...] as of this encounter Progress Notes Cesia Su, Speech Pathologist - 07/18/2016 9:41 AM [facility] [address] [place] [address] Cancellation/No Show Date: 07/18/2016 Patient Information Patient [...] [place] | | | | | | [address] | | | | | | | | +--------+---------+ + + + | 11/24/ | Office | Cardiology | [place], | | | 2019 | Visit | | SINDHU Erickson [address] | | | | | | [place], | | | | | | [place] [address] | | | | | | [phone] | | | | | | | | +--------+---------+ + + + | 03/01/ | Office | Pulmonology | Mukul Clark MD | | | 2020 | Visit | | [address] | | | | | | [place] | | | | | | [address] | | | | | | | | +--------+---------+ + + + documented as of this encounter Visit Diagnoses Not on filedocumented in this encounter"
--- OUTSIDE RECORDS SUMMARY | ~2019-09-27 | XMS | Encounter Summary ---
Demographics + + + | Address | [address] | | | [place] [address] | + + + | Home Phone [...] Team Providers + +------+ + | Care Ophthalmic Medical Assistant Name | Role | Phone | [...] | | Dx) | | | | [address] | | | | | | [phone] | | | +--------+ + + + [...] a 50 y.o. female patient of Gabino Cherry DO being seen today for follow-up after [...] have not thoroughly proofread this note, and director of acquisitions erro rs may occur. Nancy Simms C MA - 11/01/2015 8:22 AM PDT Pt. Presents for a DMSO #2 for Interstitial Cystitis. Administrations This Visit dimethyl sulfoxide (RIMSO-50) 50% solution 50 mL Admin Date Action Dose Route Administered By 11/01/2015 Given 50 mL Bladder Instillation Nancy Dalal CMA heparin 10,000 units/mL injection 10,000 Units Admin Date Action Dose Route Administered By 11/01/2015 Given 47460 Units Subcutaneous Nancy Dalal CMA lidocaine 2% [...] [place] | | | | | | [address] | | | | | | | | +--------+---------+ + + + | 11/24/ | Office | Cardiology | [place], | | | 2019 | Visit | | SINDHU Erickson [address] | | | | | | [place], | | | | | | [place] [address] | | | | | | [phone] | | | | | | | | +--------+---------+ + + + | 03/01/ | Office | Pulmonology | Mukul Clark MD | | | 2020 | Visit | | [address] | | | | | | [place] | | | | | | [phone] | | | | | | | [...] 1.001 - 1.030 | | | | [place], | | | | | | [facility], [...]
--- OUTSIDE RECORDS SUMMARY | ~2019-09-27 | XMS | Encounter Summary ---
Demographics + + + | Address | [address] | | | [place] [address] | + + + | Home Phone [...] Team Providers + +------+ + | Care Clinical Documentation Consultant Name | Role | Phone | [...] | with brief | [address] | [place] | | | | n | loss of | [address] | [place], | | | | | consciousnes | [place], | [place] [address] | | | | | s | [place] [address] | Phone: | | | | | Post-concuss | Phone: | [phone] | | | | | ion vertigo | [phone] | Fax: | | | | | [id number] | Fax: | [phone] | | | | | (ICD-10-CM) | [phone] | | | | | | - [...] + + | 05/07/ | Office | [facility] | Aaron Rodriguez, | Dizziness (Primary | | 2017 | Visit | MED CTR THERAPY PT | MD [address] | Dx); Impaired | | | | OP [address] | [place] | mobility and | | | | [place] | [id number] | activities of daily | | | | [address] | | living; Concussion | | | | [phone] | Lakeshia Cleary, PT | with brief (less | | | | | [address] | than one hour) loss | | | | | [place] | of consciousness; | | | | | [address] | Intractable acute | | | | [...] might be different from t he original. [facility] CTR THERAPY PT OP [address] [place] [address] Physical Therapy Daily Treatment Note Date: 05/07/2016 [...] Rehab Precautions Office Visit from 05/01/2016 in [facility] CTR THERAPY PT OP Rehab Precautions [...] [place] | | | | | | [id number] | | | | | | | | +--------+---------+ + + + | 11/24/ | Office | Cardiology | [place], | | | 2019 | Visit | | SINDHU Erickson [address] | | | | | | [place] | | | | | | [place] [address] | | | | | | [phone] | | | | | | | | +--------+---------+ + + + | 03/01/ | Office | Pulmonology | Mukul Clark MD | | | 2020 | Visit | | [address] | | | | | | [place] | | | | | | [address] | | | | | | | [...]
--- OUTSIDE RECORDS SUMMARY | ~2019-09-27 | XMS | Encounter Summary ---
Demographics + + + | Address | [address] | | | [place] [address] | + + + | Home Phone [...] Team Providers + +------+ + | Care Laser Machine Operator Name | Role | Phone [...] sleep apnea) | | | | [address] [place] | [place] | (Primary Dx) | | | | [place] [address] | [address] | | | | | [phone] | | | +--------+---------+ + + + [...] machine. She has tried to get her [employer] to add the connection part for oxygen to her machine, but it has not happene d. Now she only uses her 3 per minute of supplemental oxygen at night and she has not been u sing her machine for the past few months. She was already on oxygen during the day for her COPD through her senior sales administrator. She says since she stopped using her [...] years before she was switched to bilevel [id number]. I reviewed the notes from Dr Chris Alarcon in [place], [place].It indicates that patient had CPAP intolerance [...] as pressure was increased. Somewhere in the co ddle of the study patient woke up, [...] a medium airtouch F20 mask recommended. Since b ased on patient's history and previous sleep [...] show that she needed nocturnal supplemental oxygen. W drew decided not to perform a diagnostic study at this time. Today: Rosario comes in bringing her old bilevel machine and her download shows that she is on [facility]. pressure has been changed to 15/11 cm [...] hours of sleep per night. PAP STATISTICS: [facility] Company: [employer] [employer], Bilevel-ST: 15/11 cm H2O [...] by mouth Daily. Yes Historical Provider, Yinka Naqvi Respiratory Therapy Supplies [facility] Please provide patient with necessary CPAP supplies (she did not specify, okay to send order as appropriate) Diagnosis Code(s)327.23 . Length of Need 99 months. Please send order to [facility]. 01/13/13 Yes Loreta London MD Respiratory Therapy Supplies [facility] Change CPAP back to 11-14 cm H2O. All necessary supplies. No oxygen bleed in. Diagnosis Code(s)327.23. Length of Need: Lifetime. Please send order to [facility]. This is not a [...] the patient. The sleep study report from [facility] kobi naqvi which was performed on 04/17/15( Dr. Alarcon in [place], [place]) indicated that . Bilevel-ST was prescribed [...] evidence for hypoventilation. Date, I personally called [facility] and discussed this with one of the staff. If the machine c ould be set up on bilevel-S this should be done(today, I tried to check it but after about 1 0 minutes the machine still was reading the card, and I wonder if it functions properly). Ot herwise, the machine should be replaced with a bilevel-S machine. A staff from [facility] is to c all me tomorrow and [...] this chart may have been created with [employer] voice recognition software. Occasi onal wrong-word or [...] [place] | | | | | | [address] | | | | | | | | +--------+---------+ + + + | 11/24/ | Office | Cardiology | [place], | | | 2019 | Visit | | SINDHU Erickson [address] | | | | | | [place], | | | | | | [place] [address] | | | | | | [phone] | | | | | | | | +--------+---------+ + + + | 03/01/ | Office | Pulmonology | Mukul Clark MD | | | 2020 | Visit | | [address] | | | | | | [place] | | | | | | [phone] | | | | | | | | +--------+---------+ + + + documented as of this encounter Visit Diagnoses + + | Diagnosis | + + | GARRY (obstructive sleep apnea) - Primary Obstructive sleep apnea (adult) (pediatric) | + + documented in this encounter
--- OUTSIDE RECORDS SUMMARY | ~2019-09-27 | XMS | Encounter Summary ---
Demographics + + + | Address | [address] | | | [place] [address] | + + + | Home Phone [...] Team Providers + +------+ + | Care Superintendent Pipelines Name | Role | Phone | + +------+ + | Juan Cherry DO | PCP | | + +------+ + Reason for Visit +--------+--------+ + | Reason | Onset | Comments | | | Date | | +--------+--------+ + | Other | 01/13/ | | | | 2012 | | +--------+--------+ + Encounter Details +--------+ + + + + | Date | Type | Department | Care Team | Description | +--------+ + + + + | 01/13/ | Telephone | [facility] [place] | Ana Laura Lopez, | Other | | 2012 | | PULMONARY [address] | RN | | | | | [place], | | | | | | [place] [address] | | | | | | [phone] | | | +--------+ + + + [...] Miscellaneous Notes Telephone Encounter - Ana Laura Ernandez RN - 01/13/2013 3:18 PM PSTFaxed order for CPAP supp lies to [facility] elephone E devikaunter - Loreta London MD - 01/13/2013 10:43 AM PSTOrder written. elephone Encounter - Hilda Ernandez RN - 01/13/2013 10:09 AM PSTPatient called. She is need of new CPAP supplies. She r equests we send to [facility] documented in this encounter Plan of Treatment [...] | | | | | | [place] [address] | | | | | | [phone] | | | | | | | | +--------+---------+ + + + | 03/01/ | Office | Pulmonology | Mukul Clark MD | | | 2020 | Visit | | [address] | | | | | | [place] | | | | | | [address] | | | | | | | | +--------+---------+ + + + documented as of this encounter Visit Diagnoses + + | Diagnosis | + + | GARRY (obstructive sleep apnea) - Primary Obstructive sleep apnea (adult) (pediatric) | + + documented in this encounter"
--- OUTSIDE RECORDS SUMMARY | ~2019-09-27 | XMS | Encounter Summary ---
Demographics + + + | Address | [address] | | | [place] [address] | + + + | Home Phone [...] Team Providers + +------+ + | Care Dandy Operator Name | Role | Phone | [...] | COPD | MD Kevin | [address] | | | | | (chronic | [address] | [place], | | | | | obstructive | [place] | [place] [address] | | | | | pulmonary | [place], | Phone: | | | | | disease) | [place] [address] | [phone] | | | | | (HCC) | Phone: | Fax: | | | | | Procedures | [phone] | [phone] | | | | | CT Chest wo | Fax: | | | | | | Contrast | [phone] | | +--------+--------+ + + + + [...] | COPD | MD Kevin | [address] | | | | | (chronic | [address] | [place], | | | | | obstructive | [place] | [place] [address] | | | | | pulmonary | [place], | Phone: | | | | | disease) | [place] [address] | [phone] | | | | | (HCC) | Phone: | Fax: | | | | | Procedures | [phone] | [phone] | | | | | CT Chest wo | Fax: | | | | | | Contrast | [phone] | | +--------+--------+ + + + + Encounter Details +--------+ + + + + | Date | Type | Department | Care Team | Description | +--------+ + + + + | 11/16/ | Hospital | [facility] | Kevin Sandoval, | COPD (chronic | | 2013 | Encounter | MED CTR [address] | [address] | obstructive | | | | [place], | [place], [place] | pulmonary disease) | | | | [place] [address] | [id number] | ([facility]) | | | | [phone] | | | +--------+ + + + [...] | | | | | | [place] [address] | | | | | | [phone] | | | | | | | | +--------+---------+ + + + | 03/01/ | Office | Pulmonology | Mukul Clark MD | | | 2020 | Visit | | [address] | | | | | | [place] | | | | | | [address] | | | | | | | [...] + | MISCELLANEOUS LAB | | | [phone] | + +---------+ + + | MISCELANIOUS LAB | | | [phone] | + +---------+ + + documented in this encounter Visit Diagnoses + + | Diagnosis | + + | COPD (chronic obstructive pulmonary disease) (HCC) Chronic airway obstruction, not | | elsewhere classified | + + documented in this encounter
--- OUTSIDE RECORDS SUMMARY | ~2019-09-27 | XMS | Encounter Summary ---
Demographics + + + | Address | [address] | | | [place] [address] | + + + | Home Phone [...] Providers + +------+ + | Care Design Engineer Products Name | Role | Phone | + +------+ + | Juan Cherry DO | PCP | | + +------+ + Reason for Visit +---------+--------+ + | Reason | Onset | Comments | | | Date | | +---------+--------+ + | Results | 09/21/ | nocturnal oximetry | | | 2013 | | +---------+--------+ + Encounter Details +--------+ + + + + | Date | Type | Department | Care Team | Description | +--------+ + + + + | 09/21/ | Telephone | [facility] | Kevin Sandoval, | Results (nocturnal | | 2013 | | PULMONARY [address] | MD [address] | oximetry) | | | | [place], | [place] | | | | | [place] [address] | [address] | | | | | [phone] | | | +--------+ + + + [...] Telephone Encounter - Marilyn Osborne RN - 09/21/2013 1:47 PM PDTCalled Rosario and ad vised that Dr Sandoval is recommending nocturnal O2 through her CPAP as she does qualify. Frederick jackson states that she has been on O2 at 2 l/m through the CPAP for the past [address] Aleyda das at the [facility] recommended it as well. documented in this encounter Plan of Treatment [...] [place] | | | | | | [address] | | | | | | | | +--------+---------+ + + + | 11/24/ | Office | Cardiology | [place], | | | 2019 | Visit | | SINDHU Erickson [address] | | | | | | [place], | | | | | | [place] [address] | | | | | | [phone] | | | | | | | [...]
--- OUTSIDE RECORDS SUMMARY | ~2019-09-27 | XMS | Encounter Summary ---
Demographics + + + | Address | [address] | | | [place] [address] | + + + | Home Phone [...] Providers + +------+ + | Care Color Tester Name | Role | Phone | [...] + + | 03/10/ | Office | [facility] | [place], | Generalized | | 2019 | Visit | CARDIOLOGY [address] | SINDHU Erickson [address] | weakness; | | | | [place], | [place], | Palpitations; | | | | [place] [address] | [place] [address] | Paroxysmal atrial | | | | [phone] | [phone] | tachycardia (HCC); | | | | [...] Since that time, she was seen in [facility] emergency department due to a fall and [...] mg by mouth Daily. [facility] Please provide patient with necessary CPAP supplies ( she did not specify, okay to send order as appropriate) Diagnosis Code(s)327.23 . Length of Need 99 months. Please send order to [facility]. 1 each 0 Respiratory Therapy Supplies LAUREATE [...] kg (155 lb 13.8 oz) | B AR 29.45 kg/m Physical Exam Constitutional: She is [...] RESULTS reviewed during visit today primarily from [facility]: LIPID Lab Results Component Value Date [...] BNP 45 2018 I reviewed records from [facility] for hospitalization,including H& P, Discharge Summary and lab reports on 2018 which is summarized in the HPI. RESULTS- I reviewed reports from [facility]: No results found. ECHO 01/10/2018 - Normal [...] and v entricular function done at the [facility]. LVEF 78%. C. Holter Monitor 08/16/13 [...] rdia when patient mowed the lawn, by lCay Mcdonough MD. H. Seen in emergency department [...] She is in class II of the [place] [employer] functional clas s. There are no signs or symptoms of overt congestive heart failure. 2. Hypotensionsecondary to medication: A. Her propranolol was decreased 06/2017 due to hypotension. B. Today, 03/10/2018, blood pressure is within normal levels at this ti nd. 3. Hypokalemia: A. Noted on labs in [...] She was seen at the ED of [facility] 3 weeks ago and again 1 [...] this chart may have been created with [employer] voice recognition software. Occasi onal wrong-word or [...] [place] | | | | | | [id number] | | | | | | | | +--------+---------+ + + + | 11/24/ | Office | Cardiology | [place], | | | 2019 | Visit | | SINDHU Erickson [address] | | | | | | [place], | | | | | | [place] [address] | | | | | | [phone] | | | | | | | | +--------+---------+ + + + | 03/01/ | Office | Pulmonology | Mukul Clark MD | | | 2020 | Visit | | [address] | | | | | | [place] | | | | | | [address] | | | | | | | [...] [place] | | | | | | [id number]) on 03/11/2018 | | | | | [...]
--- OUTSIDE RECORDS SUMMARY | ~2019-09-27 | XMS | Encounter Summary ---
Demographics + + + | Address | [address] | | | [place] [address] | + + + | Home Phone [...] Team Providers + +------+ + | Care Combat Control Manager Name | Role | Phone [...] [address] | | | | | [place], | [place], | | | | | [place] [address] | [place] [address] | | | | | [phone] | [phone] | | | | | | | [...] [place] | | | | | | [place] [address] | | | | | | [phone] | | | | | | | | +--------+---------+ + + + | 03/01/ | Office | Pulmonology | Mukul Clark MD | | | 2020 | Visit | | [address] | | | | | | [place] | | | | | | [address] | | | | | | | | +--------+---------+ + + + documented as of this encounter Procedures + +--------+ + + + | Procedure Name | Priori | Date/Time | Associated Diagnosis | Comments | | | ty | | | | + +--------+ + + + | EXTERNAL LAB: BUN | Routin | 07/03/2015 | | Results [...] + | [facility] | [address] | [place] | [phone] | | [facility] | | [address] | | | - LABORATORY | | | | + + + + + External Lab: [facility] (07/03/2015) + +-------+ + + + | Component | Value | Ref Range | Performed | Pathologist | | | | | At | Signature | + +-------+ + + + | [facility], | 6 (A) | 7 - 18 [...]
--- OUTSIDE RECORDS SUMMARY | ~2019-09-27 | XMS | Encounter Summary ---
Demographics + + + | Address | [address] | | | [place] [address] | + + + | Home Phone [...] Providers + +------+ + | Care Food Supervisor Name | Role | Phone | + +------+ + | Ozzy Delcid MD | PCP | | + +------+ + Reason for Visit + +--------+ + | Reason | Onset | Comments | | | Date | | + +--------+ + | Breathing Problem | 12/03/ | | | | 2011 | | + +--------+ + Encounter Details +--------+ + + + + | Date | Type | Department | Care Team | Description | +--------+ + + + + | 12/03/ | Telephone | [facility] [place] | Jinny Freeman | Breathing Problem | | 2011 | | PULMONARY [address] | T, RN | | | | | [place], | | | | | | [place] [address] | | | | | | [phone] | | | +--------+ + + + [...] Telephone Encounter - Marilyn Osborne RN - 12/05/2011 2:23 PM PDTCalvalentín Ponce and re layed this message. Okay per patient.Electronically signed by Marilyn Osborne RN at 2011 2:23 PM PDTTelephone Encounter - Loreta London MD - 12/04/2011 4:59 PM PDTYe s please have her keep the appointment to discuss what is going on. I would like to see her and trouble shoot issues. She might also call the [employer] in the meantime, and s ee if they can provide any solutions such as a different mask. Have her bring her machine in so I can take a look at it and see what she is doing with it. Thanks. elephone Encounter - Robbie Freeman RN - 12/04/2011 1:20 PM PDTPatient calling to ask if she should keep her appointment w christen London. She states she picked up the Cpap machine Friday and has problems with it since. Was able to wear since Friday. Has tried using it twice and has not been able to us e the mask due to mask losing it's suction. Patient can be reached at home. Able to reach her before 2pm for the next 4 days. documented in this encounter Plan of Treatment [...] | | | | | | [place] [address] | | | | | | [phone] | | | | | | | | +--------+---------+ + + + | 03/01/ | Office | Pulmonology | Mukul Clark MD | | | 2020 | Visit | | [address] | | | | | | [place] | | | | | | [id number] | | | | | | | | +--------+---------+ + + + documented as of this encounter Visit Diagnoses Not on filedocumented in this encounter"
--- OUTSIDE RECORDS SUMMARY | ~2019-09-27 | XMS | Encounter Summary ---
Demographics + + + | Address | [address] | | | [place] [address] | + + + | Home Phone [...] Team Providers + +------+ + | Care Substitute Nurse Name | Role | Phone | + +------+ + | Juan Cherry DO | PCP | | + +------+ + Reason for Visit +--------+--------+ + | Reason | Onset | Comments | | | Date | | +--------+--------+ + | LABS | 08/20/ | | | | 2019 | | +--------+--------+ + Encounter Details +--------+ + + + + | Date | Type | Department | Care Team | Description | +--------+ + + + + | 08/20/ | Telephone | [facility] [place] | [place] | NISHA | | 2019 | | CARDIOLOGY [address] | SINDHU Erickson [address] | | | | | [facility], | [facility] [place], | | | | | [place] [address] | [place] [address] | | | | | [phone] | [phone] | | | | | | | [...] Telephone Encounter - Nilda Escalona RN - 08/20/2018 3:30 PM PDTOrder done ............ ...............................Nilda Escalona RN on 08/20/18 at 15:30 elephone Encounter - Cydney Burnett - 08/20/2018 2:50 PM PDTPatient called back and wants to do her fasting lab at [facility] in [place]. Not finding orders in [employer], in-box sent to Lizy Nieto /ANN to have orders created and fax them to [facility] in [place]. elephone Encounter - Lizy Nieto Disc Recordist - 08/20/2018 2:28 PM PDTPatient scheduled for an appointment on 08/25/2018 and is needing a fasting Lipid panel, CBC and CMP. Please order, thank you. Called and left message for her to have fasting labs done prior to her appointment, if she had any questions for her to call us back. documented in this encounter Plan of [...] [place] | | | | | | [address] | | | | | | | | +--------+---------+ + + + | 11/24/ | Office | Cardiology | [place], | | | 2019 | Visit | | SINDHU Erickson [address] | | | | | | [facility] [place] | | | | | | [place] [address] | | | | | | [phone] | | | | | | | | +--------+---------+ + + + | 03/01/ | Office | Pulmonology | Mukul Clark MD | | | 2020 | Visit | | [address] | | | | | | [place] | | | | | | [address] | | | | | | | | +--------+---------+ + + + + +------+--------+ + + | Name | Type | Priori | Associated Diagnoses | Order Schedule | | | | ty | | | + +------+--------+ + + | Lipid Panel | Lab | Routin | Palpitations | Expected: | | | | e | Paroxysmal atrial | 08/20/2018, Expires: | | | | | tachycardia (HCC) | 08/20/2019 | | | | | Encounter for lipid | | | | | | screening for | | | | | | cardiovascular | | | | | | disease | | + +------+--------+ + + | Comprehensive | Lab | Routin | Palpitations | Expected: | | Metabolic Panel | | e | Paroxysmal atrial | 08/20/2018, Expires: | | | | | tachycardia (HCC) | 08/20/2019 | | | | | Encounter for lipid | | | | | | screening for | | | | | | cardiovascular | | | | | | disease | | + +------+--------+ + + | CBC with | Lab | Routin | Palpitations | Expected: | | Differential | | e | Paroxysmal atrial | 08/20/2018, Expires: | | | | | tachycardia (HCC) | 08/20/2019 | | | | | Encounter for lipid | | | | | | screening for [...]
--- OUTSIDE RECORDS SUMMARY | ~2019-09-27 | XMS | Encounter Summary ---
Demographics + + + | Address | [address] | | | [place] [address] | + + + | Home Phone [...] Providers + +------+ + | Care Nurse Transplant Name | Role | Phone | + [...] | | | | | | [place] [address] | | | | | | [phone] | | | | | | | [...] [place] | | | | | | [address] | | | | | | | | +--------+---------+ + + + | 11/24/ | Office | Cardiology | [place], | | | 2019 | Visit | | SINDHU Erickson [address] | | | | | | [place] | | | | | | [place] [address] | | | | | | [phone] | | | | | | | | +--------+---------+ + + + | 03/01/ | Office | Pulmonology | Mukul Clark MD | | | 2020 | Visit | | [address] | | | | | | [place] | | | | | | [address] | | | | | | | | +--------+---------+ + + + documented as of this encounter Visit Diagnoses Not on filedocumented in this encounter"
--- OUTSIDE RECORDS SUMMARY | ~2019-09-27 | XMS | Encounter Summary ---
Demographics + + + | Address | [address] | | | [place] [address] | + + + | Home Phone [...] Team Providers + +------+ + | Care Magazine Supervisor Name | Role | Phone | [...] T, RN | | | | | [place], | | | | | | [place] [address] | | | | | | [phone] | | | +--------+ + + + [...] shoot issues. She might also call the Doctor kinetic in the meantime, and s ee if [...] | | | | | | [place] [address] | | | | | | [phone] | | | | | | | | +--------+---------+ + + + | 03/01/ | Office | Pulmonology | Mukul Clark MD | | | 2020 | Visit | | [address] | | | | | | [place] | | | | | | [address] | | | | | | | | +--------+---------+ + + + documented as of this encounter Visit Diagnoses Not on filedocumented in this encounter"
--- OUTSIDE RECORDS SUMMARY | ~2019-09-27 | XMS | Encounter Summary ---
Demographics + + + | Address | [address] | | | [place] [address] | + + + | Home Phone [...] Providers + +------+ + | Care Shop Foreman Name | Role | Phone | [...] | (obstructive | [address] | [employer] | | | | | sleep | [place] | [place], | | | | | apnea) | [place], [place] | [place] [address] | | | | | Procedures | [address] | Phone: | | | | | [place] POLYSOM | Phone: | [phone] | | | | | 6/>YRS SLEEP | [phone] | Fax: | | | | | 4/> ADDL | Fax: | [phone] | | | | | ALESSIA ATTND | [phone] | | | | | | [place] POLYSOM | | | | | | [...] sleep apnea) | | | | [address] [employer] [place] | [place] | (Primary Dx) | | | | [place] [address] | [address] | | | | | [phone] | | | +--------+ + + + [...] | | | | | | [place] [address] | | | | | | [phone] | | | | | | | | +--------+---------+ + + + | 03/01/ | Office | Pulmonology | Mukul Clark MD | | | 2020 | Visit | | [address] | | | | | | [place] | | | | | | [address] | | | | | | | | +--------+---------+ + + + + + +--------+ + + | Name | Type | Priori | Associated Diagnoses | Order Schedule | | | | ty | | | + + +--------+ + + | * [facility] - | Outpatient | [...]
--- OUTSIDE RECORDS SUMMARY | ~2019-09-27 | XMS | Encounter Summary ---
Demographics + + + | Address | [address] | | | [place] [address] | + + + | Home Phone [...] Team Providers + +------+ + | Care Game Farm Supervisor Name | Role | Phone | [...] Alonso MD | | | | | [place], | | | | | | [place] [address] | | | | | | [phone] | | | +--------+--------+ + + + [...] [place] | | | | | | [id number] | | | | | | | | +--------+---------+ + + + | 11/24/ | Office | Cardiology | [place], | | | 2019 | Visit | | SINDHU Erickson [address] | | | | | | [place] | | | | | | [place] [address] | | | | | | [phone] | | | | | | | | +--------+---------+ + + + | 03/01/ | Office | Pulmonology | Mukul Clark MD | | | 2020 | Visit | | [address] | | | | | | [place] | | | | | | [address] | | | | | | | | +--------+---------+ + + + documented as of this encounter Visit Diagnoses Not on filedocumented in this encounter"
--- OUTSIDE RECORDS SUMMARY | ~2019-09-27 | XMS | Encounter Summary ---
Demographics + + + | Address | [address] | | | [place] [address] | + + + | Home Phone [...] Providers + +------+ + | Care Drying Oven Attendant Name | Role | Phone | + +------+ + PCP | Unavailable | + +------+ + Encounter Details +--------+ + + + + | Date | Type | Department | Care Team | Description | +--------+ + + + + | 12/01/ | [facility] | [facility] | | | | 2008 - | Encounter | MED CTR OP REHAB | | | | | | [address] [place] | | | | 12/24/ | | [place] [address] | | | | 2008 | | [phone] | | | +--------+ + + + [...] | | | | | | [place] [address] | | | | | | [phone] | | | | | | | | +--------+---------+ + + + | 03/01/ | Office | Pulmonology | Mukul Clark MD | | | 2020 | Visit | | [address] | | | | | | [place] | | | | | | [address] | | | | | | | | +--------+---------+ + + + documented as of this encounter Visit Diagnoses Not on filedocumented in this encounter"
--- OUTSIDE RECORDS SUMMARY | ~2019-09-27 | XMS | Encounter Summary ---
Demographics + + + | Address | [address] | | | [place] [address] | + + + | Home Phone [...] Providers + +------+ + | Care Director Custom Name | Role | Phone | + +------+ + PCP | Unavailable | + +------+ + Encounter Details +--------+ + + + + | Date | Type | Department | Care Team | Description | +--------+ + + + + | 09/23/ | Hospital | [facility] | Nestor Martinez, | | | 2010 | Encounter | [facility] | [address] | | | | | CENTER [address] | [place], [place] | | | | | [place] | [address] | | | | | [address] | | | | | | [phone] | | | +--------+ + + + [...] encounter ED Notes Yecenia Gallegos MD - 09/23/2010 11:33 AM PDTDATE: 09/23/2010 ADDENDUM This is a 45-year-old female who was signed out to me by the offgoing emergency department physician. The patient presented with abdominal pain. She had a full workup. At the time of signout, CT of the abdomen was pending. She has been on Cipro and Flagyl for a diagnosis o f diverticulitis, started that about a week ago. I was asked to follow up on the CT results and oversee the patient's disposition. She has already been treated for pain with Dilaudid and Zofran for nausea. The CT results were receiv ed from [facility] by fax, indicating no acute findings, diverticulosis, no evidence of diverticul itis I talked with the patient about her symptoms. She indicates she does not feel particularly constipate d. She uses hydrocodone chronically, has only about 6 left. She is interested in getting a refill on those and returning to work at [employer] today. I discussed with her that it does not seem garcia to b e using the hydrocodone and proceeding to work in [employer] so I wrote her a note off work, and she also was given a small refill of Menasha #15. I did ask her to go ahead and complete her entire course of antibiotics since this was star kelley, and a t this point I do not see any etiology of her complaint of abdominal pain. IMPRESSION: Nonspecific abdominal pain. DICTATED BY: Yecenia Gallegos MD Emergency Medicine JOB #: [id number] EXT JOB #:[id number] cc: Nestor Martinez M.D. <Electronically Signed by Yecenia Gallegos MD> 11/28/10 1607 Nestor Martinez MD - 09/23/2010 11:33 AM PDTADDENDUM DATE: 09/23/2010 This in addendum to previously dictated note. Patient's CT scan findings will be signed out for hermes lópez to Dr. Gallegos who will follow up with appropriate therapy regarding CT s can findings. DICTATED BY: Nestor Martinez M.D. Emergency Medicine JOB #: [id number] EXT JOB #:[id number] <Electronicall y Signed by Nestor Martinez MD> 09/25/10 1503 Nestor Martinez MD - 09/23/2010 11:33 AM PDTDATE: 09/23/2010 CHIEF COMPLAINT: This is a 45-year-old woman with a chief complaint of left lower quadrant suprapubi c abdominal pain over the last 24 hours with associated hot flashes, dizziness, low back pain, nausea . She says a week ago she had been treated for diverticulitis. She is taking ciprofloxacin and Flagyl . She says she was getting better and is now getting worse . She has chronic recurrent sigmoid diverti culosis and diverticulitis. history of depressi on and fibromyalgia as well as asthma. She smokes a pa ck a day. She saw her gastroenterolo gist, Dr. Goss, 2 days ago, who had scheduled an outpatient CT s can for her. She has had a CT scan back in the beginning of July, which did show sigmoid diverticulit is uncomplicat ed. No vomiting, no diarrhea, no hematochezia. ALLERGIES: ERYTHROMYCIN AND DEMEROL. HOME MEDICATIONS 1. Multivitamins. 2. Fish oil. 3. Effexor. 4. Ambien. 5. Geodon. 6. Cabergoline. 7. Tramadol. 8. Compazine. 9. Synthroid. 10. Menasha. 11. Neurontin. 12. Lexapro. 13. Cipro. 14. Flagyl. REVIEW OF SYSTEMS: A complete review of systems is negative except as detailed in HPI abov e. PHYSICAL EXAMINATION VITAL SIGNS: Blood pressure 105/61, heart rate 78, respirations 22, afebrile, 96% on room air. No ac [place] distress. HEENT: Pupils equal and reactive to light and accommodation. Extraocular movements intact. Oral muco sa moist. NECK: Supple. Nontender. CARDIAC: Normal S1, S2. LUNGS: Clear to auscultation bilaterally. ABDOMEN: Soft. She does have some left lower quadrant and suprapubic tenderness. No reboun d or guard ing, nondistended. Normal bowel sounds. NEUROLOGIC: Cranial nerves 2-12 intact. Normal sensation, motor, and strength in all 4 ext remities. No CVA tenderness. Alert and oriented x3. SKIN: No rashes or lesions. LABORATORY: Metabolic panel comprehensive shows a BUN of 4, a potassium at 3.3, otherwise within nor mal limits. CBC is within normal limits. Her UA is within normal limits. CT scan abdomen pelvis is pe nding at the time of this dictation. ASSESSMENT AND PLAN: THIS IS A 45-YEAR-OLD WOMAN WITH DIAGNOSIS OF LEFT LOWER QUADRANT ABD OMINAL EMELINA N. It is somewhat concerning for persistent diverticulitis given her history of a CT scan to rule out any complication of diverticulitis. With no evidence of diverticuliti s or complication the patient c an be discharged home with reassurance. If she does show co mplications of diverticulitis she may need to be admitted for IV antibiotic therapy. DICTATED BY: Nestor Martinez M.D. Emergency Medicine JOB #: [id number] EXT JOB #:[id number] <Electronicall y Signed by Nestor Martinez MD> 09/25/10 1503 documented in this encounter Plan of Treatment [...] [place] | | | | | | [address] | | | | | | | | +--------+---------+ + + + | 11/24/ | Office | Cardiology | [place], | | | 2019 | Visit | | [facility] [address] | | | | | | [place], | | | | | | [place] [address] | | | | | | [phone] | | | | | | | | +--------+---------+ + + + | 03/01/ | Office | Pulmonology | Mukul Clark MD | | | 2020 | Visit | | [address] | | | | | | [place] | | | | | | [phone] | | | | | | | | +--------+---------+ + + + documented as of this encounter Procedures + +--------+ + + + | Procedure Name | Priori | Date/Time | Associated Diagnosis | Comments | | | ty | | | | + +--------+ + + + | CBC WITH | Routin | 09/23/2010 | | Results for this | | DIFFERENTIAL | e | 12:53 PM | | procedure are in the | | | | PDT | | results section. | + +--------+ + + + | COMPREHENSIVE | Routin | 09/23/2010 | | Results for this | | METABOLIC PANEL | e | 12:53 PM | | procedure are in the | | | | PDT | | results section. | + +--------+ + + + | CT ABDOMEN PELVIS W | | 09/23/2010 | | Results for this | | CONTRAST | | 11:33 AM | | procedure are in the | | | | PDT | | results section. | + +--------+ + + + documented in this encounter Results Comprehensive Metabolic Panel (09/23/2010 12:53 PM PDT) + + + + + + | Component | Value | Ref Range | Performed | Pathologist | | | | | At | Signature | + + + + + + | Glucose | 91 | 70 - 109 mg/dL [...] + + + + | Alkaline | 59 | 40 - 110 IU/L | [facility] | | | Phosphatase | | | [facility] | | | | | [facility] | | | | | [facility] - | | | | | | LABORATORY | | + + + + + + | AST | 31 | 10 - 42 IU/L | [facility] | | | | | | [facility] | | | | | | [facility] | | | | | | [facility] - | | | | | | LABORATORY | | + + + + + + | ALT | 23 | 6 - 45 IU/L | [facility] | | | | | | [facility] | [facility] | | | [facility] | | | | | | [facility] - | | | | | | LABORATORY | | + + + + + + | Bilirubin | 0.7 | 0.2 - 1.0 mg/dL | [facility] [...] + + + + | Creatinine | 0.70 | 0.60 - 1.30 | [facility] | [...] + + + + | BUN/Creatin | 5.7 (L) | 12 - 20 | [facility] | | | ine Ratio | | | [facility] | | [facility] | | [facility] | | | | | | [facility] - | | | | | | LABORATORY | | + + + + + + | Na | 140 | 136 - 149 mEq/L | [facility] | | | | | | [facility] | | | | | [facility] | | | | | | [facility] - | | | | | | LABORATORY | | + + + + + + | K | 3.3 (L) | 3.5 - 5.1 mEq/l | [facility] | | | | | | [facility] | | | | | | [facility] | | | | | | [facility] - | | | | | | LABORATORY | | + + + + + + | Cl | 107 | 98 - 109 mEq/l | [facility] | | | | | | [facility] | [facility] | | | [facility] | | | | | | [facility] - | | | | | | LABORATORY | | + + + + + + | CO2 | 28 | 24 - 31 mEq/L | [facility] | | | | | | [facility] | | | | | [facility] | | | | | | [facility] - | | | | | | LABORATORY | | + + + + + + | Anion Gap | 8.3 | 6.0 - 17.0 | [facility] | [...] [address] | [place] | [phone] | | [facility] | | [address] | | | - LABORATORY | | | | + + + + + | [facility] | [address] | [place] | | | [facility] | | [id number] [[email or web address] | | | - LABORATORY | | | | + + + + + CBC with Differential (09/23/2010 12:53 PM PDT) + + + + + + | Component | Value | Ref Range | Performed | Pathologist | | | | | At | Signature | + + + + + + | White Blood | 8.3 | 4.0 - 11.0 K/uL | [facility] | | | Cells | | | [facility] | [facility] | | | | | | [facility] - | | | | | | LABORATORY | | + + + + + + | Red Blood | 4.67 | 3.70 - 5.20 | [facility] | | | Cells | | M/uL | [facility] | | | | | | [facility] | | | | | | CENTER - | | | | | | LABORATORY | | + + + + + + | Hemoglobin | 14.5 [...] + + + + | MCV | 92.1 | 83.0 - 101.0 fL | [facility] | | | | | | [facility] | | | | | | [facility] | | | | | | C[facility] - | | | | | | LABORATORY | | + + + + + + | MCH | 31.1 | 28.0 - 35.0 pg | [facility] | | | | | | [facility] | | | | | | [facility] | | | | | | CENTER - | | | | | | LABORATORY | | + + + + + + | MCHC | 33.7 | 32.0 - 36.0 | [facility] | [...] + + + + | Platelet | 381 | 140 - 440 K/uL | [facility] | | | Count | | | [facility] | | | | | | [facility] | | | | | | CENTER - | | | | | | LABORATORY | | + + + + + + | % | 44.1 (L) | 45 - 75 % | [facility] | | | Neutrophils | | | [facility] | | | | | | [facility] | | | | | | CENTER - | | | | | | LABORATORY | | + + + + + + | % | 44.4 | 20 - 45 % | [facility] [...] + + + + | % | 2.8 | 0 - 5 % | [facility] | | | Eosinophils | | | [facility] | | | | | | MEDICAL | | | | | | CENTER - | | | | | | LABORATORY | | + + + + + + | % Basophils | 0.4 | 0 - 1 % | [facility] | | | | | | [facility] | | | | | | [facility] | | | | | | CENTER - | | | | | | LABORATORY | | + + + + + + | Absolute | 3.7 | 1.5 - 6.6 K/uL | [facility] | | | Neutrophils | | | [facility] | | | | | | MEDICAL | | | | | | CENTER - | | | | | | LABORATORY | | + + + + + + | Absolute | 3.7 (H) | 0.6 - 3.2 K/uL | [facility] | | | Lymphocytes | | | [facility] | | | | | | MEDICAL | | | | | | CENTER - | | | | | | LABORATORY | | + + + + + + | Absolute | 0.7 | 0.0 - 1.0 K/uL | [facility] | | | Monocytes | | | [facility] | | | | | | MEDICAL | | | | | | CENTER - | | | | | | LABORATORY | | + + + + + + | Absolute | 0.2 | 0.0 - 0.4 K/uL | [facility] [...] [facility] | [address] | [place], [place] | [phone] | | [facility] | | [address] | | | - LABORATORY | | | | + + + + + | [facility] | [address] | [place], [place] | | | [facility] | | [address] [place] [address] | | | - LABORATORY | | | | + + + + + CT Abdomen Pelvis w Contrast (09/23/2010 11:33 AM PDT) + + | Specimen | + + | | + + + + + | Narrative | Performed At | + + + | [facility] Diagnostic Imaging Department | [facility] | | [address] [facility] | [facility] | | ABDOMEN AND PELVIS CT WITH | DIAG IMG | | CONTRAST, 1540 HOURS, 09/23/2010 COMPARISON: 31 July. | | | CLINICAL HISTORY: ABDOMINAL AND LOW BACK PAIN. FINDINGS: | | | There is stable scarring or atelectasis at the right base. Upper | | | abdominal structures are remarkable for normal appearing liver, | | | spleen, biliary tree, gallbladder, and pancreas. The portoveno us | | | structures enhance normally. The adrenals and kidneys are | | | unremarkable. There is no hydronephrosis . The mesentery is clear. | | | There are a few scattered lower abdominal calcifications which could | | | repres ent calcified nodes. The stomach demonstrates surgical suture | | | at the GE junction. Small bowel is part ially opacified with contrast | | | and is unremarkable. The appendix is not visualized. The colon | | | demonstr ates left colonic stool retention and sigmoid | | | diverticulosis. The pelvis demonstrates post hysterectomy | | | changes. There is a distended urinary bladder. There is no free | | | fluid. IMPRESSION: 1. NEGATIVE FOR ACUTE INTRAABDOMINAL | | | PROCESS. Dictated Date/Time: 09/24/2010 09:10 Transcribed | | | Date/Time: 09/24/2010 13:01 Poultry Picking Machine Tender: | | | <Electronically Signed by Elías Cardoso MD> 09/24/101938 | | + + + + + | Procedure Note | + + | Reed, Rad Conversion - 04/02/2013 3:30 PM [facility] | | Diagnostic Imaging Department [address] [place] [address] | | ABDOMEN AND PELVIS CT WITH CONTRAST, 1540 HOURS, | | 09/23/2010 COMPARISON: 31 July. CLINICAL HISTORY: ABDOMINAL AND LOW BACK PAIN. | | FINDINGS: There is stable scarring or atelectasis at the right base. Upper abdominal | | structures are remarkable for normal appearing liver, spleen, biliary tree, gallbladder, | | and pancreas. The portovenous structures enhance normally. The adrenals and kidneys are | | unremarkable. There is no hydronephrosis. The mesentery is clear. There are a few | | scattered lower abdominal calcifications which could represent calcified nodes. The | | stomach demonstrates surgical suture at the GE junction. Small bowel is partially | | opacified with contrast and is unremarkable. The appendix is not visualized. The colon | | demonstrates left colonic stool retention and sigmoid diverticulosis. The pelvis | | demonstrates post hysterectomy changes. There is a distended urinary bladder. There is | | no free fluid. IMPRESSION: 1. NEGATIVE FOR ACUTE INTRAABDOMINAL PROCESS. Dictated | | Date/Time: 09/24/2010 09:10Transcribed Date/Time: 09/24/2010 13:01Transcriptionist: | | <Electronically Signed by Elías Cardoso MD> 09/24/101938 | |ent calcified nodes. The stomach demonstrates surgical suture at the GE junction. Small bow el is part | |ially opacified with contrast and is unremarkable. The appendix is not visualized. The colo n demonstr | |ates left colonic stool retention and sigmoid diverticulosis. | | | |The pelvis demonstrates post hysterectomy changes. There is a distended urinary bladder. Th ere is no | |free fluid. | | | |IMPRESSION: | |1. NEGATIVE FOR ACUTE INTRAABDOMINAL PROCESS. | | | |Dictated Date/Time: 09/24/2010 09:10 | |Transcribed Date/Time: 09/24/2010 13:01 | |Poultry Picking Machine Tender: | |<Electronically Signed by Elías Cardoso MD> 09/24/101938 | + + + +---------+ + + | Performing | Address | City/State/Zipcode | Phone Number | | Organization | | | | + +---------+ + + | [place] | | | | | [facility] | | | | + +---------+ + + documented in this encounter Visit Diagnoses Not on filedocumented in this encounter"
--- OUTSIDE RECORDS SUMMARY | ~2019-09-27 | XMS | Encounter Summary ---
Demographics + + + | Address | [address] | | | [place] [address] | + + + | Home Phone [...] Team Providers + +------+ + | Care Mapping Analyst Name | Role | Phone | [...] | RN | | | | | [place], | | | | | | [place] [address] | | | | | | [phone] | | | +--------+ + + + [...] PSTFaxed order for CPAP supp lies to [facility] elephone E devikaunter - Loreta London MD - 01/13/2013 10:43 AM PSTOrder written. elephone Encounter - Hilda Ernandez RN - 01/13/2013 10:09 AM PSTPatient called. She is need of new CPAP supplies. She r equests we send to [facility] documented in this encounter Plan of [...] | | | | | | [place] [address] | | | | | | [phone] | | | | | | | | +--------+---------+ + + + | 03/01/ | Office | Pulmonology | Mukul Clark MD | | | 2020 | Visit | | [address] | | | | | | [place] | | | | | | [address] | | | | | | | | +--------+---------+ + + + documented as of this encounter Visit Diagnoses + + | Diagnosis | + + | GARRY (obstructive sleep apnea) - Primary Obstructive sleep apnea (adult) (pediatric) | + + documented in this encounter"
--- OUTSIDE RECORDS SUMMARY | ~2019-09-27 | XMS | Encounter Summary ---
Demographics + + + | Address | [address] | | | [place] [address] | + + + | Home Phone [...] Team Providers + +------+ + | Care Sprinkler Helper Name | Role | Phone | [...] [address] | | | | | [place], | [place] | | | | | [place] [address] | [address] | | | | | [phone] | | | +--------+--------+ + + + [...] [place] | | | | | | [address] | | | | | | | | +--------+---------+ + + + | 11/24/ | Office | Cardiology | [place] | | | 2019 | Visit | | [facility] [address] | | | | | | [place] | | | | | | [place] [address] | | | | | | [phone] | | | | | | | [...]
--- OUTSIDE RECORDS SUMMARY | ~2019-09-27 | XMS | Encounter Summary ---
Demographics + + + | Address | [address] | | | [place] [address] | + + + | Home Phone [...] Team Providers + +------+ + | Care Catalytic Case Operator Name | Role | Phone | + +------+ + | Juan Cherry DO | PCP | | + +------+ + Encounter Details +--------+ + + + + | Date | Type | Department | Care Team | Description | +--------+ + + + + | 12/22/ | Hospital | [facility] | Yecenia Gallegos | | | 2012 - | Encounter | [facility] | MD Y[address] | | | | | [address] [place] | [facility], | | | 12/24/ | | [place] [address] | [place] [address] | | | 2012 | | [phone] | [phone] | | | | | | | | | | | | Lucian Lopez | | | | | | MD Case | | +--------+ + + + + [...] Lucian Lopez MD - 12/24/2012 10:13 [place] [address] Patient Name: JADYN SCHMITZ Provider: Lucian Lopez MD Unit #: [id number] Location: [address] [place], [place] [address]t #: [id number] : 1965 ADMISSION DATE: 12/22/2012 DISCHARGE DATE: 12/24/2012 PRIMARY CARE PROVIDER: Juan Cherry DO. ROLLOFF TRUCK DRIVER: Loreta London MD. DISCHARGING PHYSICIAN: Lucian Lopez MD. DISCHARGE DIAGNOSES 1. ACUTE EXACERBATION OF CHRONIC OBSTRUCTIVE PULMONARY DISEASE. IMPROVED. 2. DEPRESSION/FIBROMYALGIA. 3. HYPOTHYROIDISM. 4. OBSTRUCTIVE SLEEP APNEA. HISTORY OF PRESENT ILLNESS: Please refer to the history and physical examination note cindy benson on 12/22. 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 She came in with shortness of [...] BY: Lucian Lopez MD Hospitalist JOB #: [id number] EXT JOB #:[id number] EDITED: 12/27/2012 07:16 <<Signature on File>> Lucian [...] | | | | | | | [facility]. | | | | | [...] documented as of this encounter H&P Notes Lucian Lopez MD - 12/22/2012 2:55 [place] [address] Patient Name: JADYN SCHMITZ Provider: Lucian Lopez MD Unit #: [id number] Location: [facility] : 1965 DATE: 12/22/2012 PRIMARY CARE PROVIDER: None. ROLLOFF TRUCK DRIVER: Loreta London MD ADMITTING PHYSICIAN: Lucian Lopez MD CHIEF COMPLAINT: Shortness of breath. HISTORY OF PRESENT ILLNESS: The patient is a 47-year-old lady who does have a past medical history of COPD, depression, fibromyalgia hypothyroidism, and obstructive sleep apnea. She has had multiple hospitalizations for COPD this year. Actually, she just was recently hospi talized in [facility] in [place], for COPD exacerbation. She was given bro nchodilators and steroids. She also was seen here in our emergency department for COPD exac erbation, in August, and she did not require hospitalization. Her symptoms started last when she started complaining of wheezing and shortness of breath and a dry cough. She a lso was having chills, but no fever. She has been using her bronchodilators every 4 hours a nd took steroids, which really did not help. She has been regularly taking her fluticasone/ salmeterol. However, her shortness of breath just got worse. She actually just moved from [facility]. She actually went to an urgent care facility, then she was referred to the emerge ncy department. In the emergency department she was given bronchodilators, steroids, and she was noted hypoxic with a saturation of 88%. She was admitted for further treatment. PAST MEDICAL HISTORY 1. COPD/asthma. 2. Fibromyalgia. 3. Osteoarthritis. 4. Hypothyroidism. PAST SURGICAL HISTORY 1. Hysterectomy. 2. Hernia surgery. MEDICATIONS 1. Fluticasone/salmeterol 500/50 mcg, 1 puff twice daily. 2. Acetaminophen 500 p.o. every 6 hours as needed. 3. Albuterol 1 amp inhalation as needed. 4. Albuterol/ipratropium 1 amp inhalation as needed. 5. Cholecalciferol 1000 units p.o. daily. 6. Albuterol 90 mcg puff, 2 puffs inhalation daily as needed. 7. Ziprasidone 80 mg p.o. t wice daily. 8. Tramadol 50 mg p.o. 4 times daily. 9. Multivitamin 1 tablet p.o. daily. 10. Levothyroxine 75 mcg p.o. daily. 11. Gabapentin 800 mg p.o. t.i.d. ALLERGIES 1. ERYTHROMYCIN. 2. NSAIDS. 3. MEPERIDINE. 4. TETRACYCLINE. HABITS: She stopped smoking about 2-1/2 weeks ago. She has been smoking for 30 years, about half a pack a day. She has no history of alcohol abuse or illicit drug use. SOCIAL HISTORY: She now lives here back in [place]. REVIEW OF SYSTEMS CONSTITUTIONAL: No fevers. She has been complaining of chills. She has not had any signific ant weight gain or weight loss. HEAD: The patient complains of headaches. EYES: No discharge, no redness. NOSE: No epistaxis, no discharge. EARS: No ear pain or ear discharge. NECK: Complaining of neck pain and neck stiffness. CHEST: Complaining of wheezing and dry cough. HEART: No chest pain, no palpitations. GASTROINTESTINAL: No vomiting. Did complain of nausea and diarrhea, no blood in the stools, no black stools. GENITOURINARY: No dysuria, no hematuria. NEUROLOGIC: No loss of consciousness, no slurring of speech. PHYSICAL EXAMINATION VITAL SIGNS: Temperature is 36.3 degrees Celsius, heart rate 112, blood pressure 118/50, re spiratory rate 22, oximetry 94% on 4 liters per minute per nasal cannula. HEAD: Normocephalic. EYES: No discharge noted. NOSE: No discharge noted. EARS: No tragal tenderness. NECK: Mild stiffness noted, mild tenderness. CHEST: Occasional wheezes noted bilaterally. Moderate air entry. No crackles appreciated. M ild rhonchi noted. HEART: Slightly tachycardic, regular rhythm. ABDOMEN: Not distended. Bowel sounds appreciated. Soft, nontender. EXTREMITIES: No edema noted. NEUROLOGIC: Conscious, coherent, oriented to 3 spheres. Moves all extremities. LABORATORY DATA: CBC: WBC 8.5, hemoglobin 14.6, platelet count 250. BMP revealed sodium 139 , potassium 3.9, chloride 106, bicarbonate 24, anion gap 12.7, blood urea nitrogen 11, crea tinine 0.81, glucose 155 , calcium 8.7. LFTS: Total bilirubin 0.4, AST 23, ALT 16, ALP 77, total protein 6.2, albumin 3.6. Chest radiograph revealed no acute changes. IMPRESSION AND PLAN 1. ACUTE CHRONIC OBSTRUCTIVE PULMONARY DISEASE EXACERBATION. We will continue treatment as needed. Will schedule bronchodilators. We will continue giving intravenous steroids. We nevaeh l start the patient on intravenous levofloxacin. We will also continue controller medicatio ns salmeterol/fluticasone. 2. DEPRESSION/FIBROMYALGIA. We will continue medications. 3. HYPOTHYROIDISM. We will continue levothyroxine. 4. OBSTRUCTIVE SLEEP APNEA. Will encourage the patient to use own CPAP. 5. PROPHYLAXIS: We will give the patient proton pump inhibitors and enoxaparin. CODE STATUS: FULL CODE. The patient's condition, blood tests and imaging were discussed with the patient. The patie nt verbalized understanding of her condition and agreement to the recommended care plan. DICTATED BY: Lucian Lopez MD Hospitalist JOB #: [id number] EXT JOB #:[id number] <<Signature on File>> Lucian Lopez MD 12/22/12 1837 < documented in this encounter ED Notes Yecenia Gallegos MD - 12/23/2012 2:29 [place] [address] Patient Name: JADYN SCHMITZ Provider: Lucian Lopez MD Unit #: [id number] Location: [facility] : 1965 DATE: 12/22/2012 PRIMARY CARE: None. CHIEF COMPLAINT: Shortness of breath. HISTORY OF PRESENT ILLNESS: This is a 47-year-old female, who [facility]. The patient indicates that over the last recent months she moved to [place], [place]. She has a history of COPD. She was hoping to live there. However, she had mult iple exacerbations of her COPD, was hospitalized twice. She has since returning to the area . She indicates she quit smoking about 2-1/2 weeks ago. She previously has seen Dr. Mary hernandes. She called Dr. London yesterday attempting to be seen for increasing shortness of breath; that began on Friday. She has been using her nebulizer treatment. Dr. London referred her to the urgent care to help facilitate reestablishing care with her. The patien asiya was previously seeing . She indicates she cannot be seen at the clinic second nohemi to an outstanding bill. She initiated prednisone 60 mg yesterday and also took 60 today . She denies any history of home oxygen. She says the apartment she moved to was extremely nate and she has been vacuuming a lot. She is unable to catch her breath and came in for e valuation today. PAST MEDICAL HISTORY: COPD, fibromyalgia, osteoarthritis. MEDICATIONS 1. Albuterol. 2. DuoNebs. 3. Prednisone started yesterday, though she is not chronically on prednisone. 4. Tylenol. 5. Vitamin D. 6. Cymbalta. 7. Advair. 8. Gabapentin. 9. Levothyroxine. 10. Multivitamin. 11. Tramadol. 12. Geodon. ALLERGIES 1. ERYTHROMYCIN. 2. NSAIDs. 3. DEMEROL. REVIEW OF SYSTEMS She denies any known ill contacts including with influenza. She has had influenza vaccine t his year as well as a prior Pneumovax. She denies any complaints of pain whatsoever. She in dicates she is getting frustrated with her symptoms, poorly controlled with multiple hospit alizations over the last couple of months. She indicates her cough has been nonproductive. Complete review of systems as noted above and reviewed from the nursing record, otherwise n egative. SOCIAL HISTORY: As above. She quit smoking unaccompanied here in the emergency department. FAMILY HISTORY: Noncontributory. PHYSICAL EXAMINATION VITAL SIGNS: Temperature 97.7, respirations 36, heart rate 122, blood pressure 110/54, init ial O2 saturation was 90% on room air, 108 kilos documented, but I think it is more likely 108 pounds. SKIN: Warm, dry. She is not diaphoretic or dusky. HEENT: Head is normocephalic, atraumatic. Pupils equal, round, reactive to light. HEART: Tachycardic rate, regular rhythm. LUNGS: Diminished to auscultation throughout bilaterally with diffuse expiratory wheeze and diminished. She is tachypneic. She has increased work of breathing with prolonged expirato ry phase. She is able to reposition herself in bed and is not in a tripod position, but she may be a touch orthopneic. ABDOMEN: Soft, nontender. EXTREMITIES: No peripheral edema, no calf tenderness. NEUROLOGIC: The patient is awake, alert, oriented, fully able to give her history. EMERGENCY DEPARTMENT COURSE: She received a DuoNeb here, was reassessed and had a consisten t expiratory wheezing throughout. She received albuterol 10 mg nebulizer treatment x2 and S lanette-Medrol and lab work and chest x-ray ordered as she did not seem to be resolving her whe ezing. Her chest x-ray shows only hyperinflation, no pulmonary infiltrate. Her hypoxia was persistent. On room air she desaturated 88% after the above treatments. At this point, it l ooks like inpatient hospitalization is warranted. Her situation was discussed with Dr. Rhonda braden, from our hospitalist service. He requested that holding orders be written for the patien t to be evaluated by him upstairs and these were written. LABORATORY DATA: Her white blood count is 8.5, hemoglobin 14.6, platelet count normal. Chem istry panel normal serum electrolytes, including a carbon dioxide of 24, normal renal funct ion, normal liver function. She increasingly subjective improvement in her symptoms, persis tent hypoxia, and persistent expiratory wheezing and at this point the patient will be move d upstairs for evaluation and admission by Dr. Lopez. IMPRESSION CHRONIC OBSTRUCTIVE PULMONARY DISEASE EXACERBATION With HYPOXIA AND NO IMPROVEMENT IN THE E MERGENCY DEPARTMENT WITH CONTINUOUS NEBULIZER TREATMENTS. DICTATED BY: Yecenia Gallegos MD Emergency Medicine JOB #: [id number] EXT JOB #:[id number] <<Signature on File>> Yecenia Gallegos MD01/20/13 1638 <Electronically signed by Yecenia Gallegos MD> documented [...] [place] | | | | | | [address] | | | | | | | | +--------+---------+ + + + | 11/24/ | Office | Cardiology | [place], | | | 2019 | Visit | | [facility] [address] | | | | | [address] [place], | | | | | | [place] [address] | | | | | | [phone] | | | | | | | [...] + + + | White Blood | 14.4 (H) | 4.0 - 11.0 K/uL | [facility] | | | [facility] | | | [facility] | | | | | | [facility] | | | | | | CENTER - | | | | | | LABORATORY | | + + + + + + | Red Blood | 4.57 | 3.70 - 5.20 | [...] | | | | | gm/dL | [facility] | | | | | [...] | | | | | | [facility] | | | | | | MEDICAL [...] + | [facility] | [address] | [place] | [phone] | | [facility] | | [address] | | | - LABORATORY | | | | + + + + + | [facility] | [address] | [place] | | | [facility] | | [address], [facility] | | | - LABORATORY | [...] [address] | [place] | [phone] | | [facility] | | [address] | | | - LABORATORY | | | | + + + + + | [facility] | [address] | [place], [place] | | | [facility] | | [id number] | | | - LABORATORY | | [...] | | | [facility] | | | [facility] | | | L ? | | | MEDICAL | | | | | | CENTER - | | | | | | LABORATORY | | + + + + + + | White Blood | 12.5 (H) | 4.0 - 11.0 K/uL | [facility] | | | Cells | | | [facility] | | | [...] + | [facility] | [address] | [place] | [phone] | | [facility] | | [address] | | | - LABORATORY | | | | + + + + + | [facility] | [address] | [place], [place] | | | [facility] | | [address], [facility] | | | - LABORATORY | [...] + | [facility] | [address] | [place] | [phone] | | [facility] | | [address] | | | - LABORATORY | | | | + + + + + | [facility] | [address] | [place], [place] | | | [facility] | | [address], [facility] | | | - LABORATORY | | | | + + + + + XR Chest AP Portable (12/22/2012 12:40 PM PDT) + + | Specimen | + + | | + + + + + | Narrative | Performed At | + + + | [facility] | [facility] | | Department [address] [facility] | [facility] | | [ rep ct street[address]] [ rep [facility] | | st zip] Signed | - IMAGING | | | | | Patient Name: JADYN SCHMITZ | | | Physician: JAZMYN : 1965 Age: 47 Sex: F Unit | | | #: [id number] Exam Date: 12/22/12 Location: | | | [address] [place] [address] Report #: [id number] Page: | | | %(RAD)RES..mtdd.print.filter("pg") of %(RAD) | | | RES..mtdd.print.filter("tpg") | | | | | | Accession Number: [id number] | | | CHEST PORTABLE CLINICAL HISTORY: [...] | | | Transcribed Date/Time: 12/22/2012 13:10 Stock Layer: | | | MRChrisDO <<Signature on File>> | | | Kobe | | | MD Tor12/22/12 1421 <Electronically signed by Kobe Lentz MD> | | | Kobe Lentz MD 12/22/12 1240 Stock Layer: [employer] | | | [id number]/29/13 1310 Yecenia Gallegos MD | | | | | + + + + + + + + | Performing | Address | City/State/Zipcode | Phone Number | | Organization | | | | + + + + + | [facility] | [address] | [place] | [phone] | | [facility] | | [address] | | | - IMAGING | | [...] + + + | White Blood | 8.5 | 4.0 - 11.0 K/uL | [facility] | | | Cells | | | [facility] | | | | | | MEDICAL | | | | | | CENTER - | | | | | | LABORATORY | | + + + + + + | Red Blood | 4.73 | 3.70 - 5.20 | [facility] | | | Cells | | M/uL | [facility] | | [...] 0.0 | 0.0 - 0.1 K/uL | [facility] | | | Basophils | | | [...] [address] | [place] | [phone] | | [facility] | | [address] | | | - LABORATORY | | | | + + + + + | [facility] | [address] | [place] | | | [facility] | | [id number] | | | - LABORATORY | | [...] 11 | 7 - 18 mg/dL | [facility] | | | | | | [facility] | | | | | | MEDICAL | | | | | | CENTER - | | | | | | LABORATORY | | + + + + + + | Creatinine | 0.81 | 0.60 - 1.30 | [facility] | | | | | mg/dL | [...] | 13.6 | 12 - 20 | [facility] | [...] + | [facility] | [address] | [place], [place] | [phone] | | [facility] | | [address] | | | - LABORATORY | | | | + + + + + | [facility] | [address] | [place], [place] | | | [facility] | | [id number] [place] [address] | | | - LABORATORY | | | | + + + + + documented in this encounter Visit Diagnoses Not on filedocumented in this encounter
--- OUTSIDE RECORDS SUMMARY | ~2019-09-27 | XMS | Encounter Summary ---
Demographics + + + | Address | [address] | | | [place] [address] | + + + | Home Phone [...] Providers + +------+ + | Care Charge Account Authorizer Name | Role | Phone | + [...] | | | | Insomnia due | [address] | | | | | | to medical | [place], | | | | | | condition | [place] [address] | | | | | | History of | Phone: | | | | | | bipolar | [phone] | | | | | | disorder | Fax: | | | | | | Procedures | [phone] | | | | | | HIM [...] + + | 05/16/ | Office | [facility] [place] | Aaron Rodriguez, | Concussion with | | 2016 | Visit | PHYSIATRY [address] | MD [address] | brief loss of | | | | [address] | [place], [place] | consciousness | | | | [place], [place] | [phone] | (Primary Dx); | | | | [address] | | Post-concussion | | | | [phone] | | headache; Other | | | [...] she was seen by a counselor at [facility] yesterday, al though she does not feel the counselor is a good fit for her. Patient states she will contin ue to stay with her Provider at [facility] until she is able to see [...] is thinking about suicide she will seek [facility] help. Rosario Malik reports sleep symptoms including: [...] ([facility]) 10/28/2012 Overview: Managed by [facility] along with hypothyroidism Osteoarthritis Tachycardia Asthma Emphysema Migraine Sleep apnea uses BiPAP Oxygen dependent uses 2.5 liters most of the time Past Surgical History Past Surgical History Procedure Laterality Date Hammer toe surgery right sided Hiatal hernia repair Hiatal hernia Kirk and bso Ovarian cysts, not cancer Colonoscopy 03/2010 Colonoscopy 1995 [facility] Knee surgery right Wrist surgery right Hysterectomy Other surgical history 02/28/2014 [facility] with Radial approach; Laterality: Left; Surgeon: Jared Mcdonough MD; [facility] Tonsillectomy Age 6 Turbt N/A 11/22/2015 Procedure: Cystoscopy, Hydrodistention & Bladder Biopsy; Surgeon: Yinka Melendez; Location: [facility] Hernia repair 11/29/2015 [facility] [...] 1 Years of Education: 13 Occupational History [employer] Social History Main Topics Smoking status: [...] Exercise: None due to health Caffeine: Dr. Pepper about 36 oz a day Living situation: [...] 4 hours as needed. 360 mL 5 Jnkfjnoyeu-PUPQ-Hzau-Cod [id number] MG CAPS Take 1 capsule by mouth [...] takes this da rigoberto Respiratory Therapy Supplies [facility] Please provide patient with necessary CPAP supplies ( she did not specify, okay to send order as appropriate) Diagnosis Code(s)327.23 . Length of Need 99 months. Please send order to [facility]. 1 each 0 Respiratory Therapy Supplies [facility] Change CPAP back to 11-14 cm H2O. All necessary suppl ies. No oxygen bleed in. Diagnosis Code(s)327.23. Length of Need: Lifetime. Please send orde r to [facility]. This is not a new [...] suicidal ideation. She has suicide contract with [facility]. She agrees to seek emergent medical attention if she is having suicidal thoughts. She camron es suicidal intent at this time. 2. Patient encouraged to continue care at [facility] until she is [...] | | | | | | [place] [address] | | | | | | [phone] | | | | | | | | +--------+---------+ + + + | 03/01/ | Office | Pulmonology | Mukul Clark MD | | | 2020 | Visit | | [address] | | | | | | [place] | | | | | | [phone] | | | | | | | [...]
--- OUTSIDE RECORDS SUMMARY | ~2019-09-27 | XMS | Encounter Summary ---
Demographics + + + | Address | [address] | | | [place] [address] | + + + | Home Phone [...] Providers + +------+ + | Care Inside Meter Tester Name | Role | Phone | + +------+ + PCP | Unavailable | + +------+ + Encounter Details +--------+ + + + + | Date | Type | Department | Care Team | Description | +--------+ + + + + | 12/28/ | Hospital | [facility] | Ozzy Delcid, | | | 2009 - | Encounter | [facility] | [address] | | | | | [address] [place] | [address] [address] [place], | | | 01/23/ | | [place] [address] | [place] [address] | | | 2009 | | [phone] | [phone] | | | | | | | [...] [place] | | | | | | [address] | | | | | | | | +--------+---------+ + + + | 11/24/ | Office | Cardiology | [place], | | | 2019 | Visit | | SINDHU Erickson [address] | | | | | | [place] | | | | | | [place] [address] | | | | | | [phone] | | | | | | | | +--------+---------+ + + + | 03/01/ | Office | Pulmonology | Mukul Clark MD | | | 2020 | Visit | | [address] | | | | | | [place] | | | | | | [address] | | | | | | | | +--------+---------+ + + + documented as of this encounter Visit Diagnoses Not on filedocumented in this encounter"
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
--- OUTSIDE RECORDS SUMMARY | ~2019-09-27 | XMS | Encounter Summary ---
Demographics + + + | Address | [address] | | | [place] [address] | + + + | Home Phone [...] Providers + +------+ + | Care Group Account Director Name | Role | Phone | [...] + | 11/08/ | Office | [facility] | Lencho Astorga, | Axillary abscess | | 2015 | Visit | CARE [address] | [address] | (Primary Dx) | | | | [place] | [place] | | | | | [address] | [address] | | | | | [phone] | | | +--------+---------+ + + + [...] [place] | | | | | | [id number] | | | | | | | | +--------+---------+ + + + | 11/24/ | Office | Cardiology | [place], | | | 2019 | Visit | | SINDHU Erickson [address] | | | | | | [place], | | | | | | [place] [address] | | | | | | [phone] | | | | | | | | +--------+---------+ + + + | 03/01/ | Office | Pulmonology | Mukul Clark MD | | | 2020 | Visit | | [address] | | | | | | [place] | | | | | | [phone] | | | | | | | | +--------+---------+ + + + documented as of this encounter Visit Diagnoses + + | Diagnosis | + + | Axillary abscess - Primary Cellulitis and abscess of upper arm and forearm | + + documented in this encounter"
--- OUTSIDE RECORDS SUMMARY | ~2019-09-27 | XMS | Encounter Summary ---
Demographics + + + | Address | [address] | | | [place] [address] | + + + | Home Phone [...] Team Providers + +------+ + | Care Pari Mutuel Ticket Seller Name | Role | Phone | + [...] | | | | | pulmonary | [address] | [address] | | | | | disease, | [place], | [place] | | | | | unspecified | [place] [address] | [place], [place] | | | | | COPD type | Phone: | [address] | | | | | (HCC) | [phone] | Phone: | | | | | Pulmonary | Fax: | [phone] | | | | | emphysema, | [phone] | Fax: | | | | | unspecified | | [phone] | | | | | emphysema | | | | | | | type ([facility]) | | | +--------+ + + + + + Encounter Details +--------+---------+ + + + | Date | Type | Department | Care Team | Description | +--------+---------+ + + + | 05/23/ | Office | [facility] | Sharonda Delmycaitie, | Chronic obstructive | | 2017 | Visit | MED CTR CARDIAC | [address] | pulmonary disease, | | | | REHABILITATION [address] | [place], | unspecified COPD | | | | [address] [place] | [place] [address] | type (HCC) (Primary | | | | [place] [address] | [phone] | Dx) | | | | [phone] | | | +--------+---------+ + + + [...] Desean Wheeler - 05/23/2016 3:07 PM PDT [facility] CARDIAC REHABILITATION [address] [place] [address] Cardiac Rehab Date: 05/23/2016 Patient Information Patient [...] [place] | | | | | | [address] | | | | | | | | +--------+---------+ + + + | 11/24/ | Office | Cardiology | [place], | | | 2019 | Visit | | SINDHU Erickson [address] | | | | | | [place], | | | | | | [place] [address] | | | | | | [phone] | | | | | | | | +--------+---------+ + + + | 03/01/ | Office | Pulmonology | Mukul Clark MD | | | 2020 | Visit | | [address] | | | | | | [place] | | | | | | [address] | | | | | | | | +--------+---------+ + + + documented as of this encounter Visit Diagnoses + + | Diagnosis | + + | Chronic obstructive pulmonary disease, unspecified COPD type (HCC) - Primary | + + documented in this encounter"
--- OUTSIDE RECORDS SUMMARY | ~2019-09-27 | XMS | Encounter Summary ---
Demographics + + + | Address | [address] | | | [place] [address] | + + + | Home Phone [...] Providers + +------+ + | Care Mounter Automatic Name | Role | Phone | + +------+ + | Juan Cherry DO | PCP | | + +------+ + Reason for Visit + +--------+ + | Reason | Onset | Comments | | | Date | | + +--------+ + | Appointment | 10/02/ | | | | 2017 | | + +--------+ + Encounter Details +--------+ + + + + | Date | Type | Department | Care Team | Description | +--------+ + + + + | 10/02/ | Telephone | [facility] | Andriy Weber | Appointment | | 2017 | | [address] | MD [address] | | | | | [place] | [place] | | | | | [address] | [place] [address] | | | | | [phone] | [phone] | | | | | | | [...] Notes Telephone Encounter - Korin Holly - 10/02/2016 9:07 AM PDTCalled patient to r/s a ppt Hold spot placed on 11/18/16. documented in this encounter Plan of Treatment [...] [place] | | | | | | [id number] | | | | | | | | +--------+---------+ + + + | 11/24/ | Office | Cardiology | [place] | | | 2019 | Visit | | SINDHU Erickson [address] | | | | | | [place], | | | | | | [place] [address] | | | | | | [phone] | | | | | | | [...]
--- OUTSIDE RECORDS SUMMARY | ~2019-09-27 | XMS | Encounter Summary ---
Demographics + + + | Address | [address] | | | [place] [address] | + + + | Home Phone [...] Team Providers + +------+ + | Care Elevator Operator Name | Role | Phone | [...] | RN | | | | | [place], | | | | | | [place] [address] | | | | | | [phone] | | | +--------+ + + + [...] that an order will be sent to [facility] to change her CPAP pressure to 13 [...] | | | | | | [place] [address] | | | | | | [phone] | | | | | | | | +--------+---------+ + + + | 03/01/ | Office | Pulmonology | Mukul Clark MD | | | 2020 | Visit | | [address] | | | | | | [place] | | | | | | [id number] | | | | | | | | +--------+---------+ + + + documented as of this encounter Visit Diagnoses Not on filedocumented in this encounter"
--- OUTSIDE RECORDS SUMMARY | ~2019-09-27 | XMS | Encounter Summary ---
Demographics + + + | Address | [address] | | | [place] [address] | + + + | Home Phone [...] Team Providers + +------+ + | Care Bladder Changer Name | Role | Phone | [...] [place] | | | | | [address] | [place] [address] | | | | | [phone] | [phone] | | | | | | | [...] | | | | | | [place] [address] | | | | | | [phone] | | | | | | | [...]
--- OUTSIDE RECORDS SUMMARY | ~2019-09-27 | XMS | Encounter Summary ---
Demographics + + + | Address | [address] | | | [place] [address] | + + + | Home Phone [...] Team Providers + +------+ + | Care Farmworker Poultry Name | Role | Phone | + [...] [address] | | | | | [place], | [place] | | | | | [place] [address] | [address] | | | | | [phone] | | | +--------+--------+ + + + [...] [place] | | | | | | [address] | | | | | | | | +--------+---------+ + + + | 11/24/ | Office | Cardiology | [place] | | | 2019 | Visit | | SINDHU Erickson [address] | | | | | | [place] | | | | | | [place] [address] | | | | | | [phone] | | | | | | | [...]
--- OUTSIDE RECORDS SUMMARY | ~2019-09-27 | XMS | Encounter Summary ---
Demographics + + + | Address | [address] | | | [place] [address] | + + + | Home Phone [...] Team Providers + +------+ + | Care Backup Sawyer Name | Role | Phone | [...] Provider Unknown | | | | | [place], [place] | [phone] | | | | | [address] | | | | | | [phone] | | | +--------+ + + + [...] | | | send order to [facility] | | | | | [...] [place] | | | | | | [address] | | | | | | | | +--------+---------+ + + + | 11/24/ | Office | Cardiology | [place], | | | 2019 | Visit | | SINDHU Erickson [address] | | | | | | [place] | | | | | | [place] [address] | | | | | | [phone] | | | | | | | | +--------+---------+ + + + | 03/01/ | Office | Pulmonology | Mukul Clark MD | | | 2020 | Visit | | [address] | | | | | | [place] | | | | | | [address] | | | | | | | [...]
--- OUTSIDE RECORDS SUMMARY | ~2019-09-27 | XMS | Encounter Summary ---
Demographics + + + | Address | [address] | | | [place] [address] | + + + | Home Phone [...] Team Providers + +------+ + | Care Driver'S Education Instructor Name | Role | Phone [...] | with brief | [address] | [place] | | | | n | loss of | [address] | [place], | | | | | consciousnes | [place], | [place] [address] | | | | | s | [place] [address] | Phone: | | | | | Post-concuss | Phone: | [phone] | | | | | ion vertigo | [phone] | Fax: | | | | | [id number] | Fax: | [phone] | | | | | (ICD-10-CM) | [phone] | | | | | | - [...] | Concussion | Aaron Kim MD | Register Clerk [address] | | | Required | | with brief | [address] | [place] | | | | | loss of | [address] | [place], [place] | | | | | consciousnes | [place], | [address] | | | | | s Word | [place] [address] | Phone: | | | | | finding | Phone: | [phone] | | | | | difficulty | [phone] | Fax: | | | | | [id number] | Fax: | [phone] | | | | | (ICD-10-CM) | [phone] | | | | | | - [...] + + | 04/11/ | Office | [facility] | Aaron Rodriguez, | Concussion with | | 2016 | Visit | PHYSIATRY [address] | [address] | brief loss of | | | | [address] | [place], [place] | consciousness | | | | [place] | [address] | (Primary Dx); | | | | [address] | | Post-concussion | | | | [phone] | | headache; Word | | | [...] physical therapy within one week, please contact [facility]. Once you have completed physical therapy please continue the home exercise progr am as outline by physical therapy, indefinitely. Speech therapy has also been requested. Return to the clinic in 4 weeks. 1 1:45 AM PST documented in this encounter Progress Notes Aaron Rodriguez MD - 04/11/2016 12:43 PM PST [facility] PH[facility] [id number] OFFICE NOTE AARON RODRIGUEZ JR, MD Patient: JADYN SCHMITZ Admitting: MR #: [id number] LOC: PT TYPE: Adm Date: 04/11/2016 : [...] 12:43:36 Transcribed on 04/11/2016 20:34:55 by job# [id number] Confirmation #: [id number] cc: YONG AMANDA DO ar, Aaron Kim MD - 04/11/2016 11:47 AM PSTThis office note has been dictated. Report Confirmation# [id number] signed by Aaron Rodriguez MD at 04/11/2016 [...] | | | | | | [place] [address] | | | | | | [phone] | | | | | | | | +--------+---------+ + + + | 03/01/ | Office | Pulmonology | Mukul Clark MD | | | 2020 | Visit | | [address] | | | | | | [place] | | | | | | [address] | | | | | | | [...]
--- OUTSIDE RECORDS SUMMARY | ~2019-09-27 | XMS | Encounter Summary ---
Demographics + + + | Address | [address] | | | [place] [address] | + + + | Home Phone [...] Team Providers + +------+ + | Care Outsole Compressor Name | Role | Phone | + +------+ + | Juan Cherry DO | PCP | | + +------+ + Encounter Details +--------+ + + + + | Date | Type | Department | Care Team | Description | +--------+ + + + + | 12/22/ | Hospital | [facility] | Yecenia Gallegos | | | 2012 - | Encounter | MED CTR MEDICAL | MD [address] | | | | | [address] [place] | [facility], | | | 12/24/ | | [place] [address] | [place] [address] | | | 2012 | | [phone] | [phone] | | | | | | | [...] Lucian Lopez MD - 12/24/2012 10:13 [place] [address] Patient Name: JADYN SCHMITZ Provider: Lucian Lopez MD Unit #: [id number] Location: [address] [place], [place] [address]t #: [id number] : 1965 ADMISSION DATE: 12/22/2012 DISCHARGE DATE: 12/24/2012 PRIMARY CARE PROVIDER: Juan Cherry DO. SOLE CEMENTER: Loreta London MD. DISCHARGING PHYSICIAN: Lucian Lopez MD. DISCHARGE DIAGNOSES 1. ACUTE EXACERBATION OF CHRONIC OBSTRUCTIVE PULMONARY DISEASE. IMPROVED. 2. DEPRESSION/FIBROMYALGIA. 3. HYPOTHYROIDISM. 4. OBSTRUCTIVE SLEEP APNEA. HISTORY OF PRESENT ILLNESS: Please refer to the history and physical examination note cindy benson on 12/22. The patient is a 47-year-old lady who has a past medical history of HOSTESS HOST D. She came in with shortness of [...] BY: Lucian Lopez MD Hospitalist JOB #: [id number] EXT JOB #:[id number] EDITED: 12/27/2012 07:16 <<Signature on File>> Lucian [...] Lucian Lopez MD - 12/22/2012 2:55 [place] [address] Patient Name: JADYN SCHMITZ Provider: Lucian Lopez MD Unit #: [id number] Location: [facility] : 1965 DATE: 12/22/2012 PRIMARY CARE PROVIDER: None. SOLE CEMENTER: Loreta London MD ADMITTING PHYSICIAN: Lucian Lopez MD CHIEF COMPLAINT: Shortness of breath. HISTORY OF PRESENT ILLNESS: The patient is a 47-year-old lady who does have a past medical history of COPD, depression, fibromyalgia hypothyroidism, and obstructive sleep apnea. She has had multiple hospitalizations for COPD this year. Actually, she just was recently hospi talized in [facility] in [place], for COPD exacerbation. She was given bro [...] got worse. She actually just moved from [facility]. She actually went to an urgent [...] HISTORY: She now lives here back in [place]. REVIEW OF SYSTEMS CONSTITUTIONAL: No fevers. She [...] BY: Lucian Lopez MD Hospitalist JOB #: [id number] EXT JOB #:[id number] <<Signature on File>> Lucian Lopez MD 12/22/12 1837 < documented in this encounter ED Notes Yecenia Gallegos MD - 12/23/2012 2:29 [place] [address] Patient Name: JADYN SCHMITZ Provider: Lucian Lopez MD Unit #: [id number] Location: [facility] : 1965 DATE: 12/22/2012 PRIMARY CARE: None. CHIEF COMPLAINT: Shortness of breath. HISTORY OF PRESENT ILLNESS: This is a 47-year-old female, who [facility]. The patient indicates that over the last recent months she moved to [place], [place]. She has a history of COPD. [...] Yecenia Gallegos MD Emergency Medicine JOB #: [id number] EXT JOB #:[id number] <<Signature on File>> Yecenia Gallegos MD01/20/13 1638 [...] [place] | | | | | | [address] | | | | | | | | +--------+---------+ + + + | 11/24/ | Office | Cardiology | [place], | | | 2019 | Visit | | SINDHU Erickson [address] | | | | | | [place], | | | | | | [place] [address] | | | | | | [phone] | | | | | | | | +--------+---------+ + + + | 03/01/ | Office | Pulmonology | Mukul Clark MD | | | 2020 | Visit | | [address] | | | | | | [place] | | | | | | [address] | | | | | | | [...] + | [facility] | [address] | [place] | [phone] | | [facility] | | [address] | | | - LABORATORY | | | | + + + + + | [address] | [address] | [place] | | | [facility] | | [address], [facility] | | | - LABORATORY | [...] [facility] | | | | | | [address] | | | | | | [...] [address] | [place] | [phone] | | [facility] | | [address] | | | - LABORATORY | | | | + + + + + | [facility] | [address] | [place], [place] | | | [facility] | | [address] | | | [...] + | [facility] | [address] | [place] | [phone] | | [facility] | | [address] | | | - LABORATORY | | | | + + + + + | [facility] | [address] | [place], [place] | | | [facility] | | [address], [facility] | | | - LABORATORY | [...] + | [facility] | [address] | [place] | [phone] | | [facility] | | [address] | | | - LABORATORY | | | | + + + + + | [facility] | [address] | [place], [place] | | | [facility] | | [address], [facility] | | | - LABORATORY | | | | + + + + + XR Chest AP Portable (12/22/2012 12:40 PM PDT) + + | Specimen | + + | | + + + + + | Narrative | Performed At | + + + | [facility] | [place] | | Department [address] [facility] | [facility] | | [ rep ct [address]] [ rep [facility] | | st zip] Signed | - IMAGING | | | | | Patient Name: JADYN SCHMITZ | | | Physician: JAZMYN : 1965 Age: 47 Sex: F Unit | | | #: [id number] Exam Date: 12/22/12 Location: | | | [address] [place] [address] Report #: [id number] Page: | | | %(RAD)RES..mtdd.print.filter("pg") of %(RAD) | | | RES..mtdd.print.filter("tpg") | | | | | | Accession Number: [id number] | | | CHEST PORTABLE CLINICAL HISTORY: [...] | | | Transcribed Date/Time: 12/22/2012 13:10 Entry Driver Operator: | | | [email or web address] <<Signature on File>> | | | Kobe | | | MD Tor12/22/12 1421 <Electronically signed by Kobe Lentz MD> | | | Kobe Lentz MD 12/22/12 1240 Entry Driver Operator: [employer] | | | [email or web address]/29/13 1310 Yecenia Gallegos MD | | | | | + + + + + + + + | Performing | Address | City/State/Zipcode | Phone Number | | Organization | | | | + + + + + | [facility] | [address] | [place] | [phone] | | [facility] | | [address] | | | - IMAGING | | [...] [address] | [place] | [phone] | | [facility] | | [address] | | | - LABORATORY | | | | + + + + + | [facility] | [address] | [place] | | | [facility] | | [address] | | | [...] 11 | 7 - 18 mg/dL | [facility] | | | | | | [facility] | | | | | | MEDICAL | | | | | | CENTER - | | | | | | LABORATORY | | + + + + + + | Creatinine | 0.81 | 0.60 - 1.30 | [facility] | | | | | mg/dL | [...] + | [facility] | [address] | [place], [place] | [phone] | | [facility] | | [address] | | | - LABORATORY | | | | + + + + + | [facility] | [address] | [place], [place] | | | [facility] | | [id number] [place] [address] | | | - LABORATORY | | | | + + + + + documented in this encounter Visit Diagnoses Not on filedocumented in this encounter
--- OUTSIDE RECORDS SUMMARY | ~2019-09-27 | XMS | Encounter Summary ---
Demographics + + + | Address | [address] | | | [place] [address] | + + + | Home Phone [...] Team Providers + +------+ + | Care Marina Manager Name | Role | Phone | [...] Groin pain, | MD Jared | [address] | | | | | right Hx | [address] | [place], | | | | | of coronary | [address] | [place] [address] | | | | | angiogram | [place], | Phone: | | | | | Peritoneal | [place] [address] | [phone] | | | | | bleeding | Phone: | Fax: | | | | | Procedures | [phone] | [phone] | | | | | CT Abdomen | Fax: | | | | | | Pelvis wo | [phone] | | | | | | Contrast [...] | 03/07/ | Telephone | [facility] [place] | Jared Mcdonough, | Other ([facility] site | | 2015 | | CARDIOLOGY [address] | MD [address] | painful) | | | | [address], | [place], | | | | | [place] [address] | [place] [address] | | | | | [phone] | [phone] | | | | | | | [...] [place] | | | | | | [id number] | | | | | | | | +--------+---------+ + + + | 11/24/ | Office | Cardiology | [place], | | | 2019 | Visit | | [address]kson [address] | | | | | | [place], | | | | | | [place] [address] | | | | | | [phone] | | | | | | | | +--------+---------+ + + + | 03/01/ | Office | Pulmonology | Mukul Clark MD | | | 2020 | Visit | | [address] | | | | | | [place] | | | | | | [address] | | | | | | | [...] + | MISCELLANEOUS LAB | | | [phone] | + +---------+ + + | MISCELANIOUS LAB | | | [phone] | + +---------+ + + documented in [...]
--- OUTSIDE RECORDS SUMMARY | ~2019-09-27 | XMS | Encounter Summary ---
Demographics + + + | Address | [address] | | | [place] [address] | + + + | Home Phone [...] Providers + +------+ + | Care Building Services Engineer Name | Role | Phone | [...] [address] | | | | | [place], | [place], | | | | | [place] [address] | [place] [address] | | | | | [phone] | [phone] | | | | | | | [...] | | | | | | [place] [address] | | | | | | [phone] | | | | | | | | +--------+---------+ + + + | 03/01/ | Office | Pulmonology | Mukul Clark MD | | | 2020 | Visit | | [address] | | | | | | [place] | | | | | | [address] | | | | | | | | +--------+---------+ + + + documented as of this encounter Visit Diagnoses Not on filedocumented in this encounter"
--- OUTSIDE RECORDS SUMMARY | ~2019-09-27 | XMS | Encounter Summary ---
Demographics + + + | Address | [address] | | | [place] [address] | + + + | Home Phone [...] Providers + +------+ + | Care Senior Sales Associate Name | Role | Phone | [...] [address] | | | | | [place], | [place], | | | | | [place] [address] | [place] [address] | | | | | [phone] | [phone] | | | | | | | [...] | | | | | | [place] [address] | | | | | | [phone] | | | | | | | | +--------+---------+ + + + | 03/01/ | Office | Pulmonology | Mukul Clark MD | | | 2020 | Visit | | [address] | | | | | | [place] | | | | | | [address] | | | | | | | | +--------+---------+ + + + documented as of this encounter Visit Diagnoses Not on filedocumented in this encounter"
--- OUTSIDE RECORDS SUMMARY | ~2019-09-27 | XMS | Encounter Summary ---
Demographics + + + | Address | [address] | | | [place] [address] | + + + | Home Phone [...] Team Providers + +------+ + | Care Dredge Operator Name | Role | Phone | [...] | | | | | pulmonary | [address] | [address] | | | | | disease, | [place], | [place] | | | | | unspecified | [place] [address] | [place], [place] | | | | | COPD type | Phone: | [address] | | | | | (HCC) | [phone] | Phone: | | | | | Pulmonary | Fax: | [phone] | | | | | emphysema, | [phone] | Fax: | | | | | unspecified | | [phone] | | | | | emphysema | | | | | | | type ([facility]) | | | +--------+ + + + + + Encounter Details +--------+---------+ + + + | Date | Type | Department | Care Team | Description | +--------+---------+ + + + | 05/07/ | Office | [facility] | Danieljeremyjose Jared, | Mild persistent | | 2017 | Visit | MED CTR CARDIAC | [address] | asthma without | | | | REHABILITATION [address] | [address] [place], | complication | | | | [address] [place] | [place] [address] | (Primary Dx); | | | | [place] [address] | [phone] | Chronic obstructive | | | | [phone] | | pulmonary disease, | | | [...] documented as of this encounter Progress Notes Dimitrios-Tricia Crawley, MULTIMEDIA AUTHORING SPECIALIST - 05/07/2016 1:52 PM PDTNvChris Malik is a [age] year o [...] [place] | | | | | | [address] | | | | | | | | +--------+---------+ + + + | 11/24/ | Office | Cardiology | [place], | | | 2019 | Visit | | SINDHU Erickson [address] | | | | | | [place] | | | | | | [place] [address] | | | | | | [phone] | | | | | | | | +--------+---------+ + + + | 03/01/ | Office | Pulmonology | Mukul Clark MD | | | 2020 | Visit | | [address] | | | | | | [place] | | | | | | [address] | | | | | | | [...]
--- OUTSIDE RECORDS SUMMARY | ~2019-09-27 | XMS | Encounter Summary ---
Demographics + + + | Address | [address] | | | [place] [address] | + + + | Home Phone [...] Team Providers + +------+ + | Care Leather Leveler Name | Role | Phone | + [...] [place] | | | | | [address] | [place] [address] | | | | | [phone] | [phone] | | | | | | | [...] | | | | | | [place] [address] | | | | | | [phone] | | | | | | | [...]
--- OUTSIDE RECORDS SUMMARY | ~2019-09-27 | XMS | Encounter Summary ---
Demographics + + + | Address | [address] | | | [place] [address] | + + + | Home Phone [...] Team Providers + +------+ + | Care Ship'S Officer Name | Role | Phone | [...] + + | 01/13/ | [facility] | [facility] [place] | [place], | Central sleep apnea; | | 2011 | Visit | PULMONARY [address] | Loreta Alonso MD | Obstructive sleep | | | | [place], | | apnea; Insomnia | | | | [place] [address] | | | | | | [phone] | | | +--------+---------+ + + + [...] [place] | | | | | | [address] | | | | | | | | +--------+---------+ + + + | 11/24/ | Office | Cardiology | [place], | | | 2019 | Visit | | SINDHU Erickson [address] | | | | | | [place], | | | | | | [place] [address] | | | | | | [phone] | | | | | | | | +--------+---------+ + + + | 03/01/ | Office | Pulmonology | Mukul Clark MD | | | 2020 | Visit | | [address] | | | | | | [place] | | | | | | [address] | | | | | | | [...]
--- OUTSIDE RECORDS SUMMARY | ~2019-09-27 | XMS | Encounter Summary ---
Demographics + + + | Address | [address] | | | [place] [address] | + + + | Home Phone [...] + +------+ + | Care Head Of Human Resources Name | Role | Phone | + [...] + + | 07/27/ | [facility] | [facility] [place] | Brian Miranda | Sprain of [...] | | occurrence, | | | | [address] | | industrial places | | | | [phone] | | and premises | +--------+---------+ + [...] Date of injury: 04/05/13 [place]: [id number] Chief complaint: chest wall sprain, closing evaluation [...] well over a month ago from the claims service adjustor for the [facility] lab[facility] information regarding claims management and patient's condition, that form is completed today and this does represent a closing evaluation on this individual. No rose nges in background medical information of. Past medical history, medications, allergies reviewed Review of systems: As per HPI Objective: Vital signs as noted, nursing notes reviewed. Lnmndoy-wnkz-yxgojpnnn, well-nourished, in no apparent distress, pleasant cooperative. [...] encounter Miscellaneous Notes Plan of Care - [facility] - 07/27/2013 12:00 AM PDT lan of Care - [facility] - 07/27/2013 12:00 AM PDTElect ronically signed by [place] Pozonh at 07/29/2013 3:24 PM PDTdocumented in this [...] [place] | | | | | | [id number] | | | | | | | | +--------+---------+ + + + | 11/24/ | Office | Cardiology | [place], | | | 2019 | Visit | | SINDHU Erickson [address] | | | | | | [place], | | | | | | [place] [address] | | | | | | [phone] | | | | | | | | +--------+---------+ + + + | 03/01/ | Office | Pulmonology | Mukul Clark MD | | | 2020 | Visit | | [address] | | | | | | [place] | | | | | | [address] | | | | | | | | +--------+---------+ + + + documented as of this encounter Visit Diagnoses + + | Diagnosis | + + | Sprain of chest wall, subsequent encounter - Primary | + + | Place of occurrence, industrial places and premises | + + documented in this encounter
--- OUTSIDE RECORDS SUMMARY | ~2019-09-27 | XMS | Encounter Summary ---
Demographics + + + | Address | [address] | | | [place] [address] | + + + | Home Phone [...] Team Providers + +------+ + | Care Brake Repairer Air Name | Role | Phone | + [...] | with brief | [address] | [place] | | | | n | loss of | [address] | [place], | | | | | consciousnes | [place], | [place] [address] | | | | | s | [place] [address] | Phone: | | | | | Post-concuss | Phone: | [phone] | | | | | ion vertigo | [phone] | Fax: | | | | | [phone] | Fax: | [phone] | | | | | (ICD-10-CM) | [phone] | | | | | | - [...] + + | 06/18/ | Office | [facility] | Aaron Rodriguez, | Dizziness (Primary | | 2017 | Visit | MED CTR THERAPY PT | MD [address] | Dx); Impaired | | | | OP [address] [place] | [place] | mobility and | | | | [place] | [phone] | activities of daily | | | | [address] | | living; Concussion | | | | [phone] | Lakeshia Cleary, PT | with brief (less | | | | | [address] | than one hour) loss | | | | | [place] | of consciousness; | | | | | [address] | Intractable acute | | | | [...] might be different from t he original. [facility] CTR THERAPY PT OP [address] [place] [address] Physical Therapy Daily Treatment Note Date: 06/18/2016 [...] Rehab Precautions Office Visit from 05/01/2016 in [facility] CTR THERAPY PT OP Rehab [...] [place] | | | | | | [address] | | | | | | | | +--------+---------+ + + + | 11/24/ | Office | Cardiology | [place], | | | 2019 | Visit | | SINDHU Erickson [address] | | | | | | [place], | | | | | | [place] [address] | | | | | | [phone] | | | | | | | | +--------+---------+ + + + | 03/01/ | Office | Pulmonology | Mukul Clark MD | | | 2020 | Visit | | [address] | | | | | | [place] | | | | | | [address] | | | | | | | [...]
--- OUTSIDE RECORDS SUMMARY | ~2019-09-27 | XMS | Encounter Summary ---
Demographics + + + | Address | [address] | | | [place] [address] | + + + | Home Phone [...] Providers + +------+ + | Care Medical Administrative Name | Role | Phone | + [...] on | MED CTR THERAPY PT | CAFETERIA WORKER [address] | | | | | OP [address] | [place], [place] | | | | | [place], [place] | [address] | | | | | [address] | [phone] | | | | | [phone] | | | +--------+ + + + [...] encounter Progress Notes Janey Low PTA - 05/25/2013 9:34 AM [facility] OP [address] [place] [address] Cancellation/No Show Date: 05/25/2013 Patient Information Patient [...] | | | | | | [place] [address] | | | | | | [phone] | | | | | | | [...]
--- OUTSIDE RECORDS SUMMARY | ~2019-09-27 | XMS | Encounter Summary ---
Demographics + + + | Address | [address] | | | [place] [address] | + + + | Home Phone [...] Providers + +------+ + | Care Plant Health Care Technician Name | Role | Phone | [...] | | | | [facility] | [address] | n [address] | | | | | EXERCISE | [place], | [place] | | | | | | [place] [address] | [place], [place] | | | | | | Phone: | [address] | | | | | | [phone] | Phone: | | | | | | Fax: | [phone] | | | | | | [phone] | Fax: | | | | | | | [phone] | +--------+--------+ + + + + Encounter Details +--------+---------+ + + + | Date | Type | Department | Care Team | Description | +--------+---------+ + + + | 06/25/ | Office | [facility] | Jared Mcdonough, | Chronic obstructive | | 2017 | Visit | MED CTR CARDIAC | [address] | pulmonary disease, | | | | REHABILIT[address] | [place], | unspecified COPD | | | | [address] [place] | [place] [address] | type (HCC) (Primary | | | | [place] [address] | [phone] | Dx) | | | | [phone] | | | +--------+---------+ + + + [...] as of this encounter Progress Tricia Rahman, CALENDER WIND UP HELPER - 06/25/2016 1:10 PM PDT [facility] CTR CARDIAC REHABILITATION [address] [place] [address] Cardiac Rehab Date: 06/25/2016 Patient Information Patient [...] in progress note. Electronically signed by: Tricia Herron, SAVANNAH, 06/25/2016 13:10 Patient Name: Rosario Malik/: 1965/ [...] [place] | | | | | | [id number] | | | | | | | | +--------+---------+ + + + | 11/24/ | Office | Cardiology | [place], | | | 2019 | Visit | | SINDHU Erickson [address] | | | | | | [place], | | | | | | [place] [address] | | | | | | [phone] | | | | | | | | +--------+---------+ + + + | 03/01/ | Office | Pulmonology | Mukul Clark MD | | | 2020 | Visit | | [address] | | | | | | [place] | | | | | | [id number] | | | | | | | | +--------+---------+ + + + documented as of this encounter Visit Diagnoses + + | Diagnosis | + + | Chronic obstructive pulmonary disease, unspecified COPD type (HCC) - Primary | + + documented in this encounter"
--- OUTSIDE RECORDS SUMMARY | ~2019-09-27 | XMS | Encounter Summary ---
Demographics + + + | Address | [address] | | | [place] [address] | + + + | Home Phone [...] Team Providers + +------+ + | Care Tight Rope Walker Name | Role | Phone | + +------+ + | Juan Cherry DO | PCP | | + +------+ + Reason for Visit + +--------+ + | Reason | Onset | Comments | | | Date | | + +--------+ + | Medication Refill | 03/17/ | | | | 2019 | | + +--------+ + Encounter Details +--------+--------+ + + + | Date | Type | Department | Care Team | Description | +--------+--------+ + + + | 03/17/ | Refill | [facility] [place] | [place], | Medication Refill | | 2019 | | CARDIOLOGY [address] | SINDHU Erickson [address] | | | | | [place], | [place], | | | | | [place] [address] | [place] [address] | | | | | [phone] | [phone] | | | | | | | [...] [place] | | | | | | [address] | | | | | | | | +--------+---------+ + + + | 11/24/ | Office | Cardiology | [place], | | | 2019 | Visit | | SINDHU Erickson [address] | | | | | | [place] | | | | | | [place] [address] | | | | | | [phone] | | | | | | | [...]
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
--- OUTSIDE RECORDS SUMMARY | ~2019-09-27 | XMS | Encounter Summary ---
Demographics + + + | Address | [address] | | | [place] [address] | + + + | Home Phone [...] Team Providers + +------+ + | Care Contact Center Analyst Name | Role | Phone | + +------+ + | Ozzy Delcid MD | PCP | | + +------+ + Encounter Details +--------+ + + + + | Date | Type | Department | Care Team | Description | +--------+ + + + + | 10/14/ | Hospital | [facility] | [place], | | | 2011 | Encounter | MED CTR SLEEP | Loreta Alonso MD | | | | | CENTER [address] | | | | | | [place] | | | | | | [address] | | | | | | [phone] | | | +--------+ + + + [...] documented as of this encounter Miscellaneous Notes Sleep Disorders - Ra Degroot Jr., MD - 10/15/2011 8:00 PM PDTDATE: 10/15/2011 cc: [facility] Sleep Center Ra Degroot Jr., MD, [facility] Juan Cherry, DO RESULTS OF A DIAGNOSTIC NOCTURNAL POLYSOMNOGRAM CLINICAL INFORMATION: This is a 46-year-old female who is referred for sleep evaluation by Dr. Juan Cherry because of primarily insomnia. However, the patient is also known to karine castro and is suspecte d of possibly having obstructive sleep apnea. She has daytime fatigue additionally. FINDINGS: Prior to the study, the patient scored 19 points on the [place] Sleepiness Scale which endo rses a significant degree of recognized excessive daytime sleepiness. The patien t reported this to be a usual night's sleep. SLEEP ARCHITECTURE: Lights out was recorded at 10:20 p.m. Lights on was recorded at 4:36 a. m. The lat ency to sleep onset was prolonged at 37 minutes. The patient slept for 316 minut es out of 385.5 minut es of study time. The sleep efficiency was mildly reduced for the night in the laboratory at 82 %. The amount of N1 sleep was normal at 2.1% of the evenin g. The amount of N2 sleep was normal at 21% of the evening. The amount of N3 sleep was norm al at 51.1% of the evening. The amount of rapid eye m ovement sleep was normal at 21.9% of the evening. The latency to rapid eye movement sleep was normal at 147 minutes. The patient spent 51.7% of the evening in the left lateral decubitus position. She spent 48 .3% of the evening in the supine position. Sleep was mildly fragmented. The arousal index was 21.1. CARDIOPULMONARY MONITORING: The heart rate averaged in the 50s and fundamentally was normal sinus rhy thm. In the course of the evening, there were 34 obstructive apneas. There were 26 mixed apneas. There wer e 181 central apneas. There were 7 hypopneas. There were 33 respiratory effort-r elated arousals. The respiratory disturbance index is elevated at 53.4. The apnea-hypopnea index was elevated at 47.1. The apnea index was elevated at 45.8. Of the apneas, the majori ty were central apneas. The respiratory e vents occasioned modest sleep fragmentation. The respiratory arousal index was 16.7. The respiratory events were not associated with signifi cant oxygen desaturation. Brennon saturation was 89%. LIMB MOVEMENT MONITORING: There were 19 periodic limb movements. The PLMS index was normal at 3.6. INTERPRETATION THIS IS AN ABNORMAL NOCTURNAL POLYSOMNOGRAM SECONDARY TO: 1. CENTRAL SLEEP APNEA WELL A S OBSTRUCTIVE SLEEP APNEA IS PRESENT. This does seem to mildly fragme nt sleep. This, howev er, was not associated with significant oxygen desaturation. 2. SLEEP ARCHITECTURE IS ABNORMAL SECONDARY TO MILD PROLONGATION OF SLEEP ONSET AND A MILD DECREASED SLEEP EFFICIENCY. SUGGESTIONS 1. The principles of sleep hygiene should be reviewed with the patient. 2. The patient krishna uld be brought back into the laboratory for positive airway pressure therapy of wha t appea rs to be a combination of central as well as obstructive apnea. Ra Degroot Jr., MD, FAASM Diplomate [place] Board of Internal Medicine Diplomate in Sleep Medicine Tire Specialist, [facility] Clinical Wiring Inspector Chong dee [facility], [facility] JOB #: [id number] EXT JOB #:[id number] EDITED: 10/22/2011 13:04 <Electronically Signed by Ra Degroot MD> 10/22/11 1532 documented in this encounter Plan of Treatment [...] [place] | | | | | | [address] | | | | | | | | +--------+---------+ + + + | 11/24/ | Office | Cardiology | [place], | | | 2019 | Visit | | SINDHU Erickson [address] | | | | | | [place], | | | | | | [place] [address] | | | | | | [phone] | | | | | | | | +--------+---------+ + + + | 03/01/ | Office | Pulmonology | Mukul Clark MD | | | 2020 | Visit | | [address] | | | | | | [place] | | | | | | [address] | | | | | | | | +--------+---------+ + + + documented as of this encounter Visit Diagnoses Not on filedocumented in this encounter"
--- OUTSIDE RECORDS SUMMARY | ~2019-09-27 | XMS | Encounter Summary ---
Demographics + + + | Address | [address] | | | [place] [address] | + + + | Home Phone [...] Providers + +------+ + | Care Benefits Director Name | Role | Phone | [...] | esophagitis | [address] | [place] | | | | | presence not | [place], [place] | [place], | | | | | specified | [address] | [place] [address] | | | | | Procedures | Phone: | Phone: | | | | | [place] Gastric | [phone] | [phone] | | | | | Emptying | Fax: | Fax: | | | | | | [phone] | [phone] | +--------+--------+ + + + + Reason [...] | | Gastroesopha | MD Jesus | [place] | | | | | geal reflux | [address] | MEDICAL | | | | | disease, | [address] | CENTER [address] | | | | | esophagitis | [address] | [place] | | | | | presence not | [place], [place] | [place], | | | | | specified | [address] | [place] [address] | | | | | Procedures | Phone: | Phone: | | | | | NM Gastric | [phone] | [phone] | | | | | Emptying | Fax: | Fax: | | | | | | [phone] | [phone] | +--------+--------+ + + + + Encounter Details +--------+ + + + + | Date | Type | Department | Care Team | Description | +--------+ + + + + | 04/02/ | Hospital | [facility] | Dio Yun | Gastroesophageal | | 2017 | Encounter | MED CTR NUCLEAR | MD Jesus [address] | reflux disease, | | | | MEDICINE [address] | [place]SEMARY OLMEDO [address] | esophagitis presence | | | | [place], | [place], [place] | not specified | | | | [place] [address] | [address] | | | | | [phone] | [phone] | | | | | | | [...] | | | | | | | [facility]. | | | | | | [...] | 0 | 10/13/19 | | | Ibnujfkfcp-SCBZ-Rlwk | mouth as needed. | | | 16 | 7 | | -Cod [id number] MG | | | | | | [...] | | | | | | [place] [address] | | | | | | [phone] | | | | | | | | +--------+---------+ + + + | 03/01/ | Office | Pulmonology | Mukul Clark MD | | | 2020 | Visit | | [address] | | | | | | [place] | | | | | | [address] | | | | | | | [...] Mcbride Results In - 04/02/2016 11:38 AM [facility] NUCLEAR GASTRIC EMPTYING STUDY 04/02/2016 | [...]
--- OUTSIDE RECORDS SUMMARY | ~2019-09-27 | XMS | Encounter Summary ---
Demographics + + + | Address | [address] | | | [place] [address] | + + + | Home Phone [...] Providers + +------+ + | Care Operations Lieutenant Name | Role | Phone | + [...] [address] | | | | | [place], | [place], | | | | | [place] [address] | [place] [address] | | | | | [phone] | [phone] | | | | | | | [...] | | | | | | [place] [address] | | | | | | [phone] | | | | | | | | +--------+---------+ + + + | 03/01/ | Office | Pulmonology | Mukul Clark MD | | | 2020 | Visit | | [address] | | | | | | [place] | | | | | | [address] | | | | | | | | +--------+---------+ + + + documented as of this encounter Procedures + +--------+ + + + | Procedure Name | Priori | Date/Time | Associated Diagnosis | Comments | | | ty | | | | + +--------+ + + + | EXTERNAL LAB: BUN | Routin | 11/05/2017 | | Results [...] | EXTERNAL LAB: CALDERON | Routin | 11/05/2017 | | Results [...]
--- OUTSIDE RECORDS SUMMARY | ~2019-09-27 | XMS | Encounter Summary ---
Demographics + + + | Address | [address] | | | [place] [address] | + + + | Home Phone [...] Team Providers + +------+ + | Care Delivery Manager Name | Role | Phone | [...] | | | | CENTER [address] | [address] [place] | encounter (Primary | | | | [place], [place] | [place] [address] | Dx); Fall at home, | | | | [address] | [phone] | initial encounter; | | | | [phone] | | Contusion of left | | [...] be sent through Care Everywhere.CONCUSSION, AFT ER (STATELESS)FRACTURE, NOSE, WITH X-RAY (STATELESS)documented in this encounter Medications at Time of [...] | | 13 | | | MISCIndications: GRARY | necessary CPAP | | | | [...] | 0 | 10/13/19 | | | Ilphxennoe-SVZY-Rbuo | mouth as needed. | | | 16 | 7 | | -Cod [id number] MG | | | | | | [...] encounter ED Notes Ozzy Louis MD - 03/24/2016 10:14 AM PSTFormatting of this note might be differe nt from the original. [facility] Rosario Malik Emergency Department Encounter Note [address] [place] [address] PCP:Juan Cherry DO [phone] CHIEF COMPLAINT: Chief Complaint Patient presents with Fall ED Room: ED07/ED07 [facility] Rosario Malik is a 51 y.o. female who presents to the Emergency Department for evaluation . Yesterday she tripped on her oxygen tubing and fell forward into a wall and windowsil. Evangelista russell did not lose consciousness but was dazed and states things went black for a second. She h ad some significant epistaxis that was finally controlled after about 45 minutes. She state s she was dizzy and nauseous for a while afterwards and those symptoms are minimally present currently. She went to a headache and right-sided facial pain. She also complains of pain in her left hand primarily over the fourth and fifth digits. No wrist pain. She says her legs have some scattered bruises but she is able to walk on them and they're just sore. Thi s was a mechanical fall. She has not had vomiting since. PAST MEDICAL & SURGICAL HISTORY Past Medical [...] of pituitary gland and craniopharyngeal duct (pouch) ([facility]) 10/28/2012 Overview: Managed by [facility] along with hypothyroidism Osteoarthritis Tachycardia Asthma Emphysema Migraine Sleep apnea uses BiPAP Oxygen dependent uses 2.5 liters most of the time Past Surgical History Procedure Laterality Date Hammer toe surgery right sided Hiatal hernia repair Hiatal hernia Kirk and bso Ovarian cysts, not cancer Colonoscopy 03/2010 Colonoscopy 1995 [facility] Knee surgery right Wrist surgery right Hysterectomy Other surgical history 02/28/2014 [facility] with Radial approach; Laterality: Left; Surgeon: Jared Mcdonough MD; Location: [facility] CARDIO VASCULAR LAB Tonsillectomy Age 6 Turbt N/A 11/22/2015 Procedure: Cystoscopy, Hydrodistention & Bladder Biopsy; Surgeon: Yinka Melendez; Location: [facility] MAIN OR CURRENT MEDICATIONS Previous Medications ALBUTEROL (PROAIR HFA) 90 MCG/PUFF INHALER Inhale 2 puffs into the lungs every 6 hours as needed for Wheezing or Shortness of Breath. ALBUTEROL-IPRATROPIUM (DUONEB) 2.5-0.5 MG/3 ML SOLN Take 3 mLs by nebulization every 4 hours as needed. B-D 3CC LUER-UYEN SYR 25GX1/2" 25G X 1-1/2" 3 ML MISC QQSACUDANV-EDDX-LVVZ-COD [id number] MG CAPS Take 1 capsule by mouth as needed. DEXAMETHASONE (DECADRON) 4 MG/ML INJECTION Pt was prescribed this but doesn't have the materials to use it FLUTICASONE-SALMETEROL (ADVAIR HFA) 115-21 MCG/ACT INHALER Inhale 2 puffs into the lung s 2 times daily. GABAPENTIN (NEURONTIN) 800 MG TABLET Take 800 mg by mouth 3 times daily. HYDROCODONE-ACETAMINOPHEN (NORCO) 5-325 MG PER TABLET Take 1 tablet by mouth every 6 ho urs as needed for Pain. HYDROXYZINE HYDROCHLORIDE (ATARAX) 25 MG TABLET Take 1 tablet by mouth nightly. LEVOTHYROXINE (SYNTHROID, LEVOTHROID) 75 MCG TABLET Take 75 mcg by mouth every morning (before breakfast). METFORMIN (GLUCOPHAGE) 500 MG TABLET Take 500 mg by mouth 2 times daily (with breakfast & dinner). OXYBUTYNIN (DITROPAN) 5 MG TABLET Take 5 mg by mouth Daily. OXYGEN Inhale 2 L into the lungs continuous. 2.5 PREDNISONE (DELTASONE) 10 MG TABLET Take 10 [...] a change in settings. RESPIRATORY THERAPY SUPPLIES MISC Please provide patient with necessary CPAP supplies ( she did not specify, okay to send order as appropriate) Diagnosis Code(s)327.23 . Length of Need 99 months. Please send order to [facility]. ROFLUMILAST (DALIRESP) 500 MCG TABLET Take 1 tablet by mouth Daily. 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 Constitutional: Moderately uncomfortable female patient. HEENT: Right-sided facial swelling in the periorbital region and over the maxillary sinus. She also has some tenderness over the right frontal parietal scalp without a palpable arabella kelly, PERRL, EOMI without limitation or evidence of entrapment, Oropharynx benign. Neck: Supple with full range of motion. No Cervical Spine Tenderness to palpation or step- off noted. Respiratory: Good air movement bilaterally. End-expiratory wheezes, No, rales. Cardiovascular: Normal S1 S2 Abdomen: Soft, nontender. and No rebound, guarding, or masses. Back: No midline thoracic or lumbar spinal tenderness Extremities: She has tenderness over the left hand, primarily over the base of the fourth a nd fifth digits. There is some slight soft tissue swelling and bruising in that area. She has no wrist pain. She has good pulses at the wrist and excellent capillary refill. Lower cavities have full range of motion with some scattered bruises. Right upper extremity is no ntender and is atraumatic Present distal pulses. Skin: Warm, Dry, No rashes Neurologic: Alert & oriented. Cranial nerves II-XII intact , Gait and speech are normal Psychiatric: Normal mood, affect and judgement. IMAGING STUIDES (X-Rays interpreted by ED Physician) X-ray of the left hand showed no fracture or dislocation Radiology Interpretations: Ct Head Wo Contrast 03/24/[address] 03/24/2016 10:34 AM CLINICAL HISTORY: fall, head and facial injuries COMPARISON: CT facial bones from the same day, renal MRI July 2015 and more rem ote exams TECHNIQUE: Axial unenhanced images are performed through the head, along with cor onal and sagittal reformations. FINDINGS: There is a stable small, rounded hypodensity in the left basal ganglia, consistent with a dilated perivascular space or chronic lacunar infa rct. The cerebral parenchyma, ventricles, brainstem and cerebellum are otherwise unremarkab le. Shaw-white differentiation is maintained. There is no mass effect, evidence of recent intracranial hemorrhage or extra-axial fluid collection/mass. Right nasal bone fracture is partially imaged and better demonstrated on dedicated facial CT from the same day. Changes of right maxillary antrectomy are again apparent. There are degenerative changes of the tem poromandibular joints. The bones and soft tissues, including the imaged paranasal sinuses, middle ear cavities and mastoid air cells, are otherwise unremarkable. IMPRESSION - 1. RI GHT NASAL BONE FRACTURE WITHOUT OTHER EVIDENCE OF TRAUMATIC INJURY OR ACUTE INTRACRANIAL DIS EASE. 2. 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 I mages were provided for interpretation on March 24, 2016 1050 hours. Results were finaliz ed at 1100 hours. Dictated and Signed by: Aditya Snyder MD Electronically signed: 03/24/2016 10:[address] Maxillofacial Wo Contrast 03/24/[address] FACIAL BONES 03/24/2016 10:34 AM CLINICAL HISTORY: FALL AND HEAD INJURY COMPARISON: Head CT from the same day and November 2013 TECHNIQUE: Axial unenhanced images are performed through the facial bones, along with coronal and sagittal reformations . FINDINGS: There is a displaced fracture of the superior right nasal bone, with displacem ent and depression of the distal fragment. No other fracture is evident. Changes of right maxillary antrectomy and turbinate reduction are again apparent. The paranasal sinuses, mid dle ear cavities and mastoid air cells are well aerated. Rightward nasal septal deviation p ersists. There are degenerative changes of the temporomandibular joints, with anterior subl uxation and flattening of the articular contour of the left mandibular condyle. Numerous den donald caries are present, without conclusive acute dental injury. There is facet hypertrophy i nvolving the imaged cervical spine, without evidence of acute injury. Soft tissue structure s are unremarkable. IMPRESSION - 1. DEPRESSED RIGHT NASAL BONE FRACTURE. 2. DEGENERATIVE CHANGES OF THE TEMPOROMANDIBULAR JOINTS. 3. EXTENSIVE DENTAL DISEASE. Images were provided for interpretation on March 24, 2016 at 1050 hours. Results were finalized at 1105 hours. Dictated and Signed by: Aditya Snyder MD Electronically signed: 03/24/2016 11:05 AM ED COURSE & MEDICAL DECISION MAKING Pertinent Labs & Imaging studies were reviewed along with EMS notes and long-term record s if applicable. (See chart for details) Medications and Allergy list reviewed. Nurses note and old records were reviewed The patient was seen and examined, after initial evaluation I did order CT scan of the head and maxillofacial region along with x-rays of her left hand. She received a dose of oral p ain medication with improvement. CT did not show any intracranial injuries, but she does ledezma ve a slightly depressed right nasal bone fracture. She will be referred to Dr. Longoria for management of this. Clinically she does have some residual concussion symptoms with some d izziness and mild nausea at times. She'll be referred to Dr. Rodriguez for further concussion m anagement. Treatment instructions and return precautions were discussed in detail with the patient and her daughter at the bedside prior to discharge. Last Set of Vital Signs: Temp: 36.3 C (97.3 F) Pulse: 55 Resp: 16 SpO2: 96 % BP: (!) 95 /37 mmHg FINAL IMPRESSION ICD-10-CM ICD-9-CM 1. Closed fracture of nasal bone, initial encounter S02.2XXA 802.0 2. Fall at home, initial encounter W19.XXXA E888.9 Y92.099 E849.0 3. Contusion of left hand including fingers, initial encounter S60.222A 923.20 S60.00XA 4. Concussion, with loss of consciousness of 30 minutes or less, initial encounter S06.0X1A 850.11 Follow-up Information Schedule an appointment as soon as possible for a visit with Vahe Longoria MD. Specialty: Otolaryngology Why: nasal fracture Contact information: [address], [place] [address] [facility] [address] Schedule an appointment as soon as possible for a visit with Aaron Rodriguez MD. Specialty: Physical Medicine and Rehabilitation Why: for concussion management Contact information: [address] [facility] [address] Administrations This Visit HYDROcodone-acetaminophen (NORCO) 7.5-325 mg per tablet 1 tablet Admin Date Action Dose Route Administered By 03/24/2016 Given 1 tablet Oral Irasema Anderson RN Portions of this chart were created with [employer] voice recognition software. Inadvertent so und alike substitutions may be present and are unintentional Ozzy Louis MD 03/24/16 1112 do cumented in this encounter Miscellaneous Notes ED Triage Notes - Irasema Anderson RN - 03/24/2016 9:55 AM PSTPt states that she tripped over her oxygen tubing yesterday. States that she hit her head on the wall. Reported LOC wit h headache and nausea yesterday. Also c/o left hand pain. documented in this encounter Plan of Treatment [...] [place] | | | | | | [address] | | | | | | | | +--------+---------+ + + + | 11/24/ | Office | Cardiology | [place], | | | 2019 | Visit | | SINDHU Erickson [address] | | | | | | [place], | | | | | | [place] [address] | | | | | | [phone] | | | | | | | | +--------+---------+ + + + | 03/01/ | Office | Pulmonology | Mukul Clark MD | | | 2020 | Visit | | [address] | | | | | | [place] | | | | | | [address] | | | | | | | [...] CT Maxillofacial wo Contrast (03/24/2016 10:54 AM [facility]) + + | Specimen | + + [...] | Reed, Rad Results In - 03/24/2016 11:08 AM PST [...] | Reed, Rad Results In - 03/24/2016 3:15 PM PST [...] OSTEOARTHRITIC CHANGES.Dictated and Signed by: Aditya | | MD Claudio Electronically signed: 03/24/2016 3:12 PM | |subluxation [...]
--- OUTSIDE RECORDS SUMMARY | ~2019-09-27 | XMS | Encounter Summary ---
Demographics + + + | Address | [address] | | | [place] [address] | + + + | Home Phone [...] Team Providers + +------+ + | Care Infrastructure Analyst Name | Role | Phone | [...] [address] | | | | | [place], | [place], | | | | | [place] [address] | [place] [address] | | | | | [phone] | [phone] | | | | | | | [...] | | | | | | [place] [address] | | | | | | [phone] | | | | | | | | +--------+---------+ + + + | 03/01/ | Office | Pulmonology | Mukul Clark MD | | | 2020 | Visit | | [address] | | | | | | [place] | | | | | | [address] | | | | | | | [...]
--- OUTSIDE RECORDS SUMMARY | ~2019-09-27 | XMS | Encounter Summary ---
Demographics + + + | Address | [address] | | | [place] [address] | + + + | Home Phone [...] Team Providers + +------+ + | Care Sawmill Worker Name | Role | Phone | + +------+ + | Ozzy Delcid MD | PCP | | + +------+ + Encounter Details +--------+ + + + + | Date | Type | Department | Care Team | Description | +--------+ + + + + | 09/16/ | Hospital | [facility] | Yecenia Gallegos | | | 2011 | Encounter | MED CTR EMERGENCY | MD Yinka [address] | | | | | CENTER [address] | [facility], | | | | | [place] | [place] [address] | | | | | [address] | [phone] | | | | | [phone] | | | +--------+ + + + [...] comes to the emergency departm ent via [employer] auto. The patient indicates she woke this [...] The patient does smoke. 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 PHYSICAL EXAMINATION VITAL SIGNS: Temp 99.1, respirations [...] Yecenia Gallegos MD Emergency Medicine JOB #: [id number] EXT JOB #:[id number] <Electronicall y Signed by Yecenia Gallegos MD> [...] [place] | | | | | | [place] [address] | | | | | | [phone] | | | | | | | | +--------+---------+ + + + | 03/01/ | Office | Pulmonology | Mukul Clark MD | | | 2020 | Visit | | [address] | | | | | | [place] | | | | | | [id number] | | | | | | | [...] [address] | [place] | [phone] | | [facility] | | [address] | | | - LABORATORY | | | | + + + + + | TANISHA OLMEDO. | [address] | [place] | | | [facility] | | [address] | | | - LABORATORY | | | | + + + + + documented in this encounter Visit Diagnoses Not on filedocumented in this encounter
--- OUTSIDE RECORDS SUMMARY | ~2019-09-27 | XMS | Encounter Summary ---
Demographics + + + | Address | [address] | | | [place] [address] | + + + | Home Phone [...] Providers + +------+ + | Care Grounds Manager Name | Role | Phone | [...] | (obstructive | [address] | [place] | | | | | sleep | [place] | [place], | | | | | apnea) | [place] | [place] [address] | | | | | J44.9 | [address] | Phone: | | | | | (ICD-10-CM) | Phone: | [phone] | | | | | - 496 | [phone] | Fax: | | | | | (ICD-9-CM) - | Fax: | [phone] | | | | | Chronic | [phone] | | | | | | obstructive | | | | | | | pulmonary | | | | | | | disease, | | | | | | | unspecified | | | | | | | COPD type | | | | | | | (HCC | | | | | | | Procedures | | | | | | | NE POLYSOM | | | | | | | 6/>YRS SLEEP | | | | | | | W/CPAP 4/> | | | | | | | ADDL ALESSIA | | | | | | | ATTND NE | | | | | | | [...] + + | 04/28/ | Hospital | [facility] | Meghan Garcia MD | GARRY (obstructive | | 2019 - | Encounter | MED CTR SLEEP | [address] [facility] | sleep apnea); | | | | CENTER [address] | [place] | Chronic obstructive | | 04/29/ | | [place] | [address] | pulmonary disease, | | 2019 | | [address] | | unspecified COPD | | | | [phone] | | type (HCC) | +--------+ + [...] | | | | order to [facility]. | | | | | [...] | | send order to [facility] | | | | | | | [...] | 1 | 03/13/19 | | | (SWATHI-MARIA LUZ M20) 20 [...] encounter Procedure Notes Meghan Garcia MD - 04/30/2018 9:53 AM PSTAssociated Order(s): SLEEP STUDY PAP TITRATIONPr e-Procedure Diagnose(s): GARRY (obstructive sleep apnea); Chronic obstructive pulmonary diseas e, unspecified COPD type (HCC); Nocturnal hypoxemiaPost-Procedure Diagnose(s): GARRY (obstruct wanda sleep apnea) [facility] [place] [address] Positive Airway Pressure Titration Report on Rosario Malik performed on April 28, 2018. Clinical Information: Rosario Malik is a 53 y.o. 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 She says since she stopped using her [...] the notes from Dr. Thalia addison in [place], [place]. It indicates that patient had CPAP [...] the machine for the past 5-6 months. BMI: 28.8 Technical Information: Please see technical data which is attached. Definitions (The AASM Manual for the Scoring of Sleep and Associated Events, Version 2.4; 2 017): Apnea: There is a drop in the [...] criteria for an apnea or hypo pnea. RELEVANT MEDICATIONS: ziprasidone, prednisone, gabapentin. SUBJECTIVE: The patient rated sleep quality during sleep study as worse. She felt " she had a smaller episodes like the last two episodes that landed her in the hospital". Patient stated that she had difficulty with her own fullface mask, so she was fitted with a small and medium airtouch f20 mask and she preferred the medium mask because the small mask put pressure on her nostrils. SLEEP ARCHITECTURE AND EEG: ? Total sleep time was 318.5 minutes. Sleep efficiency was 84.8.% and was normal. ? Sleep onset latency was 6 minutes and was normal. ? REM latency was 111 minutes and was increased. ? Percent of time in stage N3 was 13.8 % and was normal. ? Percent of time in stage REM was 36.9 % and was increased. ? Arousal Index for this titration study was 23.2./hour and was mildly increased, with 8.3 respiratory arousals/hour and 14.9 spontaneous arousals/hour. RESPIRATORY: ? Bilevel-S was titrated at pressures ranging from 10/5 cmH2O to 19/15 cmH2O. patient spent entire study time in supine position. Pressure of 13/8 cm H2O appeared to control obstruct wanda sleep apnea in supine non-REM sleep. In REM sleep, patient started to have numbers of o bstructive sleep apnea at pressure of 13/8 cm H2O, and pressure was increased. Pressure of 16/11 cm H2O appeared to relatively control obstructive sleep apnea in supine REM sleep. Pr essure continued to be increased for occasional snoring and presumed obstructive events. I t did not appear to make any positive difference, and made Cflow look even worse. Also, laurent yip started to have paradoxical breathing as pressure was increased. Somewhere in the mid dle of the study patient woke up, calling with the urgency, stated that "she woke like she d id last year " panic with stroke like symptoms". Her SPO2 was above 90% and cflow was normal right before she woke up. ? Medium Airtouch F20 was found to be adequate. ? Mask air leak appeared to be increased as the pressure increased. ? Oxygen was NOT added. ? Patient spent 100% of total sleep time in supine position. ? Wake SPO2 was in the high 90%. Mean SpO2 was 96 %, brennon SpO2 was 91 %, and amount of to donald sleep time spent below SpO2 of 90% was 0 %. 4% Oxygen Desaturation Index (VICTOR MANUEL) was 4.2. and was notelevated. ? Transcutaneous CO2 ranged 35-37 mmHg during supine wake, and remained between 38 and 40 m mHg for entire study time. ? There were occasional central apneas. Tor-Stone breathing was not observed. LIMB MOVEMENTS: ? Total sleep periodic limb movement index was 0 and was not elevated.. EKG: Normal sinus rhythm was noted with mean heart rate of 75, 63, 69 beats per minute during wa ke, non-REM sleep and REM sleep respectively.. INTERPRETATION: - Previously diagnosed obstructive sleep apnea, moderate persistent asthma, and COPD, with CPAP intolerance, has been off of her bilevel-ST machine for a few months, and has been told that she needed nocturnal supplemental oxygen bleed in to her machine. - This titration study was satisfactory. CPAP was not tried as patient had previously showe d CPAP intolerance. Bilevel-S was titrated up from 10/5 cm H2O to 19/15 cm H2O . Pressure o f 13/8 cm H2O appeared to control obstructive sleep apnea in supine non-REM sleep. In REM s leep, patient started to have numbers of obstructive sleep apnea at pressure of 13/8 cm H2O, and pressure was increased. Pressure of 16/11 cm H2O appeared to relatively control obstru ctive sleep apnea in supine REM sleep. Pressure continued to be increased for occasional sn oring and presumed obstructive events. It did not appear to make any positive difference, a nd made Cflow look even worse. Also, patient started to have paradoxical breathing as press ure was increased. Somewhere in the middle of the study patient woke up, calling with the urgency, stated that "she woke like she did last year " panic with stroke like symptoms". He r SPO2 was above 90% and cflow was normal right before she woke up. I suspect higher pressu res, mask leak, and anxiety caused these symptoms. Entire study time was performed on room a ir and supplemental oxygen was not added. Wake SPO2 was in the high 90%. Mean SpO2 was 96 % , brennon SpO2 was 91 %, and amount of total sleep time spent below SpO2 of 90% was 0 %. Trans cutaneous CO2 ranged 35-37 mmHg during supine wake, and remained between 38 and 40 mmHg for entire study time. Hypoventilation was not observed. Previous sleep study reports(external ) mentioned that patient had hypoventilation during sleep, though CO2 was not measured in th ose sleep studies. - sleep efficiency was slightly decreased, and sleep was mildly fragmented. - Periodic limb movement index was not elevated. RECOMMENDATIONS: A trial of bilevel-S at 15/11 cm H2O with a medium airtouch F20 mask recommended. Since bas ed on patient's history and previous sleep studies I was expecting hypoventilation during sl eep and hypoxemia, we can also perform a repeat diagnostic polysomnography and reevaluate he r sleep-related breathing disorder. I personally called the patient and discussed the resul ts with her. She thinks that she needs her CPAP machine because without it she has excessiv e daytime sleepiness and drowsy driving. She agrees with a trial of bilevel-s, and she unde rstands that her sleep study didn't show that she needed nocturnal supplemental oxygen. We decided not to perform a diagnostic study at this time. - RTC in 4-5 weeks and sooner if needed. Meghan Garcia MD Portions of this chart may have been created with [employer] voice recognition software. Occasi onal wrong-word [...] | | | | | | [place] [address] | | | | | | [phone] | | | | | | | | +--------+---------+ + + + | 03/01/ | Office | Pulmonology | Mukul Clark MD | | | 2020 | Visit | | [address] | | | | | | [place] | | | | | | [address] | | | | | | | [...] [facility] | | | [place] [address] Positive Airway | | | Pressure Titration Report on Rosario Malik performed on April 28, | | | 2018. Clinical Information: Rosario Malik is a 53 y.o. female | | | with history of COPD, bipolar disorder, hypothyroidism, paroxysmal | | | atrial tachycardia, GERD, interstitial cystitis, and mild obstructive | | | sleep apnea presenting for issues with her bilevel machine. Rosario | | | states when she was hospitalized for fall and weakness in December | | | 2018, she was told that she needed bleed-in oxygen into her bilevel | | | machine. She has tried to get her Vitriflex to add the | | | connection [...] her COPD through her | | | ethylbenzene converter helper.She says since she stopped using her bilevel [...] she was switched to bilevel in 2015. | | | I reviewed the notes from Dr. Alarcon in [place], [place]. | | | It indicates that [...] have | | | been created with [employer] voice recognition software. Occasional | | | [...] this chart may have been created with [employer] voice | | |recognition software. Occasional wrong-word [...] Meghan Garcia MD - 04/30/2018 9:53 AM [facility] | | [place], [place] [address]Bxyprjuy Airway Pressure Titration | | Report on [...] machine. She has tried to get her Vitriflex to | | add the connection part for oxygen to her machine, but it has not happened. Now she only | | uses her 3 per minute of supplemental oxygen at night and she has not been using her | | machine for the past few months. She was already on oxygen during the day for her COPD | | through her ethylbenzene converter helper.She says since she stopped using her bilevel [...] reviewed the notes from Dr. Alarcon in [place], [place]. It | | indicates that patient [...] may have been created with | | [employer] voice recognition software. Occasional wrong-word or | [...]
--- OUTSIDE RECORDS SUMMARY | ~2019-09-27 | XMS | Encounter Summary ---
Demographics + + + | Address | [address] | | | [place] [address] | + + + | Home Phone [...] Team Providers + +------+ + | Care Shirt Trimmer Name | Role | Phone | + +------+ + | Juan Cherry DO | PCP | | + +------+ + Reason for Visit +--------+--------+ + | Reason | Onset | Comments | | | Date | | +--------+--------+ + | Other | 09/26/ | increased shortness of breath | | | 2014 | | +--------+--------+ + Encounter Details +--------+ + + + + | Date | Type | Department | Care Team | Description | +--------+ + + + + | 09/26/ | Telephone | [facility] | Kevin Sandoval, | Other (increased | | 2014 | | PULMONARY [address] | MD [address] | shortness of breath) | | | | [place], | [place] | | | | | [place] [address] | [id number] | | | | | [phone] | | | +--------+ + + + [...] Telephone Encounter - Marilyn Osborne RN - 09/26/2014 1:51 PM PDTCalled Rosario and re layed this message. Prednisone and levaquin called to [facility] follow up [facility] was scheduled for 10/10/14. Advised Rosario to call and inform us if she changes care to a different provider. She is agreeable.Electronically signed by Marilyn Osborne, NAYELI at 04/2014 3:13 PM PDTTelephone Encounter - Kevin Sandoval MD - 09/26/2014 1:02 PM PDTI rupali harris be willing to treat her but I'm wondering if she is going to seek follow-up here or with another physician? She needs close medical follow-up. Please prescribed a prednisone tape r starting at 40 mg daily and decrease by 10 mg every 3 days. Please prescribed Levaquin 50 0 mg by mouth daily for 5 days. I would recommend pulmonary clinic follow-up after 2 weeks time. elephone Enc nter - Marilyn Osborne, RN - 09/26/2014 10:15 AM PDTGretchen called asking if Dr Sandoval would treat her. She was on a Prednisone taper which she started on 10/04/14. She cancelled h er next follow up appointment as she is seeking a second opinion. Since last Friday she's been more short of breath. She has a little cough and it is mostly non productive except fo r occasionally she produces a little greenish/whitish colored mucus. She is using the nebuli zer every 4-6 hours and at times the ProAir in between. She denies fever or acute illness. Ginny sapp uses [facility] 11: 01 AM PDTdocumented in this encounter Plan of [...] | | | | | | [place] [address] | | | | | | [phone] | | | | | | | | +--------+---------+ + + + | 03/01/ | Office | Pulmonology | Mukul Clark MD | | | 2020 | Visit | | [address] | | | | | | [place] | | | | | | [address] | | | | | | | | +--------+---------+ + + + documented as of this encounter Visit Diagnoses Not on filedocumented in this encounter"
--- OUTSIDE RECORDS SUMMARY | ~2019-09-27 | XMS | Encounter Summary ---
Demographics + + + | Address | [address] | | | [place] [address] | + + + | Home Phone [...] Team Providers + +------+ + | Care Hunting Sales Leader Name | Role | Phone | [...] | obstruction, not | | | | [place], | [place], [place] | elsewhere classified | | | | [place] [address] | [address] | ([facility]) (Primary Dx) | | | | [phone] | | | +--------+ + + + [...] | | | | | | [place] [address] | | | | | | [phone] | | | | | | | | +--------+---------+ + + + | 03/01/ | Office | Pulmonology | Mukul Clark MD | | | 2020 | Visit | | [address] | | | | | | [place] | | | | | | [address] | | | | | | | | +--------+---------+ + + + documented as of this encounter Visit Diagnoses + + | Diagnosis | + + | Chronic airway obstruction, not elsewhere classified - Primary | + + documented in this encounter"
--- OUTSIDE RECORDS SUMMARY | ~2019-09-27 | XMS | Encounter Summary ---
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[place], | | | | | tumor | updated | [place] | | | | | Procedures | address | [address] | | | | | CT Head w wo | | Phone: | | | | | Contrast | | [phone] | | | | | | | Fax: | | | | | | | [phone] | +--------+--------+ + + + + Encounter Details +--------+ + + + + | Date | Type | Department | Care Team | Description | +--------+ + + + + | 12/17/ | Hospital | [facility] | Shashi Segovia | Headache; | | 2013 | Encounter | MED CTR CT [address] | MD Miryam Need updated | Pituitary tumor | | | | [place], | address | | | | | [place] [address] | | | | | | [phone] | | | +--------+ + + + [...] | | | | | | | [facility]. | | | | | [...] [place] | | | | | | [address] | | | | | | | | +--------+---------+ + + + | 11/24/ | Office | Cardiology | [place], | | | 2019 | Visit | | SINDHU Erickson [address] | | | | | | [place] | | | | | | [place] [address] | | | | | | [phone] | | | | | | | | +--------+---------+ + + + | 03/01/ | Office | Pulmonology | Mukul Clark MD | | | 2020 | Visit | | [address] | | | | | | [place] | | | | | | [address] | | | | | | | [...] + | MISCELLANEOUS LAB | | | [phone] | + +---------+ + + | MISCELANIOUS LAB | | | [phone] | + +---------+ + + documented in [...]
--- OUTSIDE RECORDS SUMMARY | ~2019-09-27 | XMS | Encounter Summary ---
Demographics + + + | Address | [address] | | | [place] [address] | + + + | Home Phone [...] Team Providers + +------+ + | Care Hat Steamer Name | Role | Phone | + [...] + + | 12/23/ | Office | [facility] | [place], | Palpitations; | | 2019 | Visit | CARDIOLOGY [address] | SINDHU Erickson [address] | Paroxysmal atrial | | | | [place], | [place], | tachycardia (HCC); | | | | [place] [address] | [place] [address] | Pericarditis, | | | | [phone] | [phone] | unspecified | | | | | [...] AM PDTFormatting of this note might be tomasen t from the original. PATIENT NAME: Rosario [...] will continue with metoprolol instead of propanolol. Sh e will follow up in 6 months for [...] Need 99 months. Please send order to [facility]. 1 each 0 Respiratory Therapy Supplies MISC Change CPAP back to 11-14 cm H2O. All necessary suppl ies. No oxygen bleed in. Diagnosis Code(s)327.23. Length of Need: Lifetime. Please send orde r to [facility]. This is not a new order, just [...] RESULTS reviewed during visit today primarily from [facility]: LIPID Lab Results Component Value Date [...] the HPI RESULTS- I reviewed reports from [facility]: Above data and testing is reviewed [...] She is in class I of the [place] Heart As sociation functional class. 2. Hypotensionsecondary [...] not done prior by another provider. Lizy Vásquez Maintenance Service Dispatcher am acting as a scribe on behalf of, and in the presenc e of SINDHU Vang. - Lizy Nieto Maintenance Service Dispatcher 12/23/2018 14:27 Georgina Vásquez ARNP, personally performed the services described in this documentati on, as scribed in my presence and it is both accurate and complete. -SINDHU Vang 12/23/2018 Portions of this chart may have been created with [employer] voice recognition software. Occasi onal wrong-word or [...] | | | | | | [place] | | | | | | [place] [address] | | | | | | [phone] | | | | | | | | +--------+---------+ + + + | 03/01/ | Office | Pulmonology | Mukul Clark MD | | | 2020 | Visit | | [address] | | | | | | [place] | | | | | | [address] | | | | | | | [...] MD | | | | | | ([id number]) on 12/23/2018 | | | | | [...]
--- OUTSIDE RECORDS SUMMARY | ~2019-09-27 | XMS | Encounter Summary ---
Demographics + + + | Address | [address] | | | [place] [address] | + + + | Home Phone [...] Team Providers + +------+ + | Care Asbestos Microscopist Name | Role | Phone | + [...] + + | 07/09/ | Clinical | [facility] | Andriy Weber | Bladder pain | | 2018 | Support | [address] | MD [address] | (Primary Dx) | | | | [place] | [place] | | | | | [address] | [facility] [place] [address] | | | | | [phone] | [phone] | | | | | | | [...] encounter Progress Notes Loraine Hawkins RN - 07/09/2017 8:00 AM PDTPatient presents [...] [place] | | | | | | [address] | | | | | | | | +--------+---------+ + + + | 11/24/ | Office | Cardiology | [place], | | | 2019 | Visit | | SINDHU Erickson [address] | | | | | | [place], | | | | | | [place] [address] | | | | | | [phone] | | | | | | | | +--------+---------+ + + + | 03/01/ | Office | Pulmonology | Mukul Clark MD | | | 2020 | Visit | | [address] | | | | | | [place] | | | | | | [address] | | | | | | | [...]
--- OUTSIDE RECORDS SUMMARY | ~2019-09-27 | XMS | Encounter Summary ---
Demographics + + + | Address | [address] | | | [place] [address] | + + + | Home Phone [...] Team Providers + +------+ + | Care Counselor Camp Name | Role | Phone | + [...] | Concussion | Aaron Kim MD | Assistant Case Manager [address] | | | Required | | with brief | [address] | [place] | | | | | loss of | [address] | [place], [place] | | | | | consciousnes | [place], | [address] | | | | | s Word | [place] [address] | Phone: | | | | | finding | Phone: | [phone] | | | | | difficulty | [phone] | Fax: | | | | | S06.0X9A | Fax: | [phone] | | | | | (ICD-10-CM) | [phone] | | | | | | - [...] | 05/23/ | Hospital | [facility] | Aaron Rodriguez, | Concussion with | | 2017 | Encounter | MED CTR SPEECH | MD [address] | brief (less than one | | | | THERAPY [address] | [place], [place] | hour) loss of | | | | [place], | [address] | consciousness | | | | [place] [address] | | (Primary Dx); | | | | [phone] | Kathi Soto, | Impaired memory; | [...] | | | | order to [facility]. | | | | | [...] | 0 | 10/13/19 | | | [id number] | mouth as needed. | | | 16 | 7 | | -Cod [id number] MG | | | | | | [...] Pathologist - 05/23/2016 7:06 PM PDT [facility] [address] [place] [address] Speech Therapy Daily Treatment Note Date: 05/23/2016 Patient Information Patient Name: Rosario Malik Date of : 1965 Age: 51 y.o. Encounter Diagnoses Code Name Primary? 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..]
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
--- OUTSIDE RECORDS SUMMARY | ~2019-09-27 | XMS | Encounter Summary ---
Demographics + + + | Address | [address] | | | [place] [address] | + + + | Home Phone [...] Team Providers + +------+ + | Care Gum Machine Filler Name | Role | Phone | + +------+ + | Juan Cherry DO | PCP | | + +------+ + Encounter Details +--------+ + + + + | Date | Type | Department | Care Team | Description | +--------+ + + + + | 01/07/ | Hospital | [facility] | Lencho Astorga, | Contusion of foot | | 2012 | Encounter | MED CTR XRAY [address] | MD [address] | including toes | | | | [place] | [place], [place] | | | | | [place] [address] | [address] | | | | | [phone] | | | +--------+ + + + [...] | | | | send order to [facility] | | | | | [...] | | | | | | [place] [address] | | | | | | [phone] | | | | | | | | +--------+---------+ + + + | 03/01/ | Office | Pulmonology | Mukul Clark MD | | | 2020 | Visit | | [address] | | | | | | [place] | | | | | | [address] | | | | | | | [...] At | + + + | [facility] Diagnostic Imaging | PLATO | | Department [address] [facility] | [facility] | | [ rep ct [address]] [ rep ct [facility] | | [facility]] Signed | - IMAGING | | | | | Patient Name: JADYN SCHMITZ | | | Physician: FRANCA : 1965 Age: 47 Sex: F Unit | | | #: [id number] Exam Date: 01/07/13 Location: | | | [facility] Report #: [id number] Page: | | | %(RAD)RES..mtdd.print.filter("pg") of %(RAD) | | | RES..mtdd.print.filter("tpg") | | | | | | Accession Number: [id number] | | | LEFT FOOT, 01/07/2013 CLINICAL [...] Transcribed | | | Date/Time: 01/07/2013 15:01 Smoking Pipe Maker: | | | <<Signature on File>> | | | Kobe | | | MD Tor01/07/13 [id number] <Electronically signed by Kobe Lentz MD> | | | Kobe Lentz MD 01/07/13 1430 Smoking Pipe Maker: [employer] | | | [id number]/14/13 1501 Lencho Astorga MD | | + + + + + + + + | Performing | Address | City/State/Zipcode | Phone Number | | Organization | | | | + + + + + | [facility] | [address] | [place] | [phone] | | [facility] | | [address] | | | - IMAGING | | | | + + + + + documented in this encounter Visit Diagnoses + + | Diagnosis | + + | Contusion of foot including toes Contusion of foot | + + documented in this encounter
--- OUTSIDE RECORDS SUMMARY | ~2019-09-27 | XMS | Encounter Summary ---
Demographics + + + | Address | [address] | | | [place] [address] | + + + | Home Phone [...] + +------+ + | Care It Infrastructure Engineer Name | Role | Phone | [...] | | | | Rehabilitatio | | [address] | | | | n | | [address] | [place], | | | | | | [place], | [place] [address] | | | | | | [place] | Phone: | | | | | | [address] | [phone] | | | | | | Phone: | Fax: | | | | | | [phone] | [phone] | | | | | | Fax: | | | | | | | [phone] | | +--------+--------+ + + + + Encounter Details +--------+---------+ + + + | Date | Type | Department | Care Team | Description | +--------+---------+ + + + | 03/28/ | Office | [facility] [place] | Aaron Santoyo, | Concussion with | | 2016 | Visit | PHYSIATRY [address] | [address] | brief loss of | | | | [address] | [place], [place] | consciousness | | | | [place] | [address] | (Primary Dx); | | | | [address] | | Post-concussion | | | | [phone] | | headache; Word | | | [...] MD - 03/28/2016 11:41 AM PST [facility] PHYSIATRY [address] [place] [address] OFFICE NOTE AARON SANTOYO JR, MD Patient: JADYN SCHMITZ Admitting: MR #: [id number] LOC: PT TYPE: Adm Date: 03/28/2016 : [...] attacks. CURRENT MEDICATIONS: Albuterol inhaler. DuoNeb nebulized. Nocfivojic-Zwdcszu-dftjnevd-codeine as needed for headache. Advair inhaler. Gabapentin 800 mg 3 times per day. 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 2. Postconcussion headaches, [...] Transcribed on 03/28/2016 12:22:07 by drew job# [id number] Confirmation #: [id number] cc: YONG AMANDA DO ar, Aaron Kim MD - 03/28/2016 11:21 AM PSTThis office note has been dictated. Report Confirmation# [id number] signed by Aaron Santoyo MD at 03/28/2016 [...] | | | | | | [place] [address] | | | | | | [phone] | | | | | | | | +--------+---------+ + + + | 03/01/ | Office | Pulmonology | Mukul Clark MD | | | 2020 | Visit | | [address] | | | | | | [place] | | | | | | [phone] | | | | | | | [...]
--- OUTSIDE RECORDS SUMMARY | ~2019-09-27 | XMS | Encounter Summary ---
Demographics + + + | Address | [address] | | | [place] [address] | + + + | Home Phone [...] Team Providers + +------+ + | Care Intranet Specialist Name | Role | Phone | [...] | | | | [facility] | [address] | [address] | | | | | EXERCISE | [place], | [place] | | | | | | [place] [address] | [place], [place] | | | | | | Phone: | [address] | | | | | | [phone] | Phone: | | | | | | Fax: | [phone] | | | | | | [phone] | Fax: | | | | | | | [phone] | +--------+--------+ + + + + Encounter Details +--------+---------+ + + + | Date | Type | Department | Care Team | Description | +--------+---------+ + + + | 06/13/ | Office | [facility] | Sharonda Delmycaitie, | Chronic obstructive | | 2017 | Visit | MED CTR CARDIAC | MD [address] | pulmonary disease, | | | | [facility] [address] [place], | unspecified COPD | | | | [address] [place] | [place] [address] | type (HCC) (Primary | | | | [place] [address] | [phone] | Dx) | | | | [phone] | | | +--------+---------+ + + + [...] Notes Desean Chris - 06/13/2016 2:17 PM PDTMs. Helena is a [age] year old female patient w ith history of COPD and Emphysema. Patient is a oxygen depend @ 2.5 to 3 lpm, patient states that she does not have to wear oxygen at nighttime. Patient states [facility]. Patient states that she had a [...] [place] | | | | | | [address] | | | | | | | | +--------+---------+ + + + | 11/24/ | Office | Cardiology | [place], | | | 2019 | Visit | | SINDHU Erickson [address] | | | | | | [place], | | | | | | [place] [address] | | | | | | [phone] | | | | | | | | +--------+---------+ + + + | 03/01/ | Office | Pulmonology | Mukul Clark MD | | | 2020 | Visit | | [address] | | | | | | [place] | | | | | | [address] | | | | | | | | +--------+---------+ + + + documented as of this encounter Visit Diagnoses + + | Diagnosis | + + | Chronic obstructive pulmonary disease, unspecified COPD type (HCC) - Primary | + + documented in this encounter"
--- OUTSIDE RECORDS SUMMARY | ~2019-09-27 | XMS | Encounter Summary ---
Demographics + + + | Address | [address] | | | [place] [address] | + + + | Home Phone [...] Providers + +------+ + | Care Scheduling Representative Name | Role | Phone | + +------+ + PCP | Unavailable | + +------+ + Encounter Details +--------+ + + + + | Date | Type | Department | Care Team | Description | +--------+ + + + + | 10/17/ | Hospital | [facility] | Kevin Worthy | | | 2010 | Encounter | MED CTR MP INTRA OP | MD Ginny [address] | | | | | [address] | [address] [place], [place] | | | | | [place], [place] | [address] | | | | | [address] | | | | | | [phone] | | | +--------+ + + + [...] encounter ED Notes Ozzy Louis MD - 10/17/2010 12:07 PM PDTDATE: 10/17/2010 TIME: 1050. CHIEF COMPLAINT: Headache after lumbar puncture of primary L-spine. HISTORY OF PRESENT ILLNESS: This is a 45-year-old female, had a lumbar puncture done 2 day s ago at [facility]. She had a headache shortly afterwards, it has been gradual ly worsening. It is v boyd positional. She has been essentially lying on her back. She has b een taking a lot of caffeine, Ty lenol, drinking a lot of fluids as well. She had no fevers or chills, injury or trauma. She states th is headache is similar to her routine headaches that she gets, but the positional component is very d ifferent. PAST MEDICAL HISTORY: She has had recurrent headaches, she is currently being worked up po ssibly for MS. She has had asthma, hysterectomy, fibromyalgia, osteoarthritis, diverticulos is, ecchymosis, and possibly multiple personality disorder. CURRENT MEDICATIONS 1. Ambien. 2. Geodon. 3. Effexor. 4. Tramadol. 5. Compazine. 6. Fish oil. 7. Multivitamin. 8. Synthroid. 9. [place]. 10. Neurontin. 11. Lexapro. 12. Cipro. 13. Caffeine. ALLERGIES 1. ERYTHROMYCIN. 2. DEMEROL. 3. NSAIDS. REVIEW OF SYSTEMS: A 12 system review negative, except noted above. SOCIAL HISTORY: Smokes tobacco. PHYSICAL EXAMINATION VITAL SIGNS: Blood pressure 102/58, heart rate 81, respirations 20, temperature 36, O2 sat uration 97 %. GENERAL APPEARANCE: female, lying in bed, speaking normally. HEENT: Atraumatic. Pupils are equal, round, and reactive. Her fundi are very difficult to visualize. Oropharynx appears benign. NECK: Supple, without JVD or lymphadenopathy. CHEST: Clear to auscultation bilaterally, with just a few scant end-expiratory wheezes. No rales. CV: Normal S1, S2. ABDOMEN: Soft, nontender. BACK: No evidence of infection of the LP site, no flank pain. EXTREMITIES: Atraumatic. NEUROLOGIC: She is alert. Speech is normal. EMERGENCY DEPARTMENT COURSE: It sounds like she does have a spinal headache. I spoke with Dr. Alfred steve, from anesthesia, and we are going to go ahead and start her on IV fluids with caffeine, and she wi ll be going over to same-day surgery for a blood patch. IMPRESSION: SPINAL HEADACHE. DICTATED BY: Ozzy Louis MD Emergency Medicine JOB #: [id number] EXT JOB #:[id number] <Electronicall y Signed by Ozzy Louis MD> 10/24/10 0141 documented in this encounter Plan of Treatment [...] | | | | | | [place] [address] | | | | | | [phone] | | | | | | | [...]
--- OUTSIDE RECORDS SUMMARY | ~2019-09-27 | XMS | Encounter Summary ---
Demographics + + + | Address | [address] | | | [place] [address] | + + + | Home Phone [...] Team Providers + +------+ + | Care Fsr Name | Role | Phone | + [...] Provider Unknown | | | | | [place], [place] | [phone] | | | | | [address] | | | | | | [phone] | | | +--------+ + + + [...] [place] | | | | | | [address] | | | | | | | | +--------+---------+ + + + | 11/24/ | Office | Cardiology | [place], | | | 2019 | Visit | | SINDHU Erickson [address] | | | | | | [place] | | | | | | [place] [address] | | | | | | [phone] | | | | | | | | +--------+---------+ + + + | 03/01/ | Office | Pulmonology | Mukul Clark MD | | | 2020 | Visit | | [address] | | | | | | [place] | | | | | | [address] | | | | | | | [...]
--- OUTSIDE RECORDS SUMMARY | ~2019-09-27 | XMS | Encounter Summary ---
Demographics + + + | Address | [address] | | | [place] [address] | + + + | Home Phone [...] Team Providers + +------+ + | Care Caser Shoe Parts Name | Role | Phone | [...] + + | 11/06/ | Clinical | [facility] | Andriy Weber | Interstitial | | 2016 | Support | [address] | MD [address] | cystitis (Primary | | | | [place] | [place] | Dx) | | | | [address] | [facility] [place] [address] | | | | | [phone] | [phone] | | | | | | | [...] Action Dose Route Administered By 11/07/2015 Given 82463 Units Subcutaneous Nancy Dalal CMA lidocaine 2% [...] Given 40 mg Intramuscular Nancy Dalal CMA Nancy rowland CMA - 0 11/07/2015 8:44 AM [...] 2019 | Visit | | [address] | | | | | | [place] | | | | | | [address] | | | | | | | | +--------+---------+ + + + | 11/24/ | Office | Cardiology | [place], | | | 2019 | Visit | | SINDHU Erickson [address] | | | | | | [place] | | | | | | [place] [address] | | | | | | [phone] | | | | | | | | +--------+---------+ + + + | 03/01/ | Office | Pulmonology | Mukul Clark MD | | | 2020 | Visit | | [address] | | | | | | [place] | | | | | | [address] | | | | | | | [...] 1.001 - 1.030 | | | | [place], | | | | | | [facility], [...]
--- OUTSIDE RECORDS SUMMARY | ~2019-09-27 | XMS | Encounter Summary ---
Demographics + + + | Address | [address] | | | [place] [address] | + + + | Home Phone [...] Providers + +------+ + | Care Assistant Cross Country Coach Name | Role | Phone | [...] [address] | | | | | [place], | [place] | | | | | [place] [address] | [address] | | | | | [phone] | | | +--------+--------+ + + + [...] [place] | | | | | | [address] | | | | | | | | +--------+---------+ + + + | 11/24/ | Office | Cardiology | [place] | | | 2019 | Visit | | SINDHU Erickson [address] | | | | | | [place] | | | | | | [place] [address] | | | | | | [phone] | | | | | | | [...]
--- OUTSIDE RECORDS SUMMARY | ~2019-09-27 | XMS | Encounter Summary ---
Demographics + + + | Address | [address] | | | [place] [address] | + + + | Home Phone [...] Providers + +------+ + | Care Congressional District Aide Name | Role | Phone | [...] [place] | | | | | | [address] | | | | | | [phone] | | | +--------+ + + + [...] Dr. London per her request d/t ur [facility] care appt today. Phone number listed is a non working number. Placed call to urgent c are since patient was seen there today. Urgent care gave me number of [phone] which wa s incorrect number for this patient. Contacted personnel training officer listed in demographics x 3 no answer. [...] [place] | | | | | | [phone] | | | | | | | | +--------+---------+ + + + | 11/24/ | Office | Cardiology | [place], | | | 2019 | Visit | | SINDHU Erickson [address] | | | | | | [place] | | | | | | [place] [address] | | | | | | [phone] | | | | | | | | +--------+---------+ + + + | 03/01/ | Office | Pulmonology | Mukul Clark MD | | | 2020 | Visit | | [address] | | | | | | [place] | | | | | | [address] | | | | | | | | +--------+---------+ + + + documented as of this encounter Visit Diagnoses Not on filedocumented in this encounter"
--- OUTSIDE RECORDS SUMMARY | ~2019-09-27 | XMS | Encounter Summary ---
Demographics + + + | Address | [address] | | | [place] [address] | + + + | Home Phone [...] Team Providers + +------+ + | Care Veneer Department Manager Name | Role | Phone | [...] + + | 06/23/ | Hospital | [facility] | [place], | Racing heart beat | | 2018 | Encounter | MED CTR NUCLEAR | SINDHU Erickson [address] | | | | | MEDICINE [address] | [place], | | | | | [place] | [place] [address] | | | | | [place] [address] | [phone] | | | | | [phone] | | | +--------+ + + + [...] | | | | | order to [facility]. | | | | | [...] | | | send order to [facility] | | | | | | | [facility]. | | | | | [...] 52 y.o. PRIMARY CARE: DO CAMILLE Guillaume SCENERY BUILDER: Jared Mcdonough MD 48-HOUR HOLTER MONITOR REPORT [...] the lawn. Signed by: Jared Mcdonough MD [facility] Electronically signed by Jared Mcdonough MD at [...] [place] | | | | | | [address] | | | | | | | | +--------+---------+ + + + | 11/24/ | Office | Cardiology | [place], | | | 2019 | Visit | | SINDHU Erickson [address] | | | | | | [place] | | | | | | [place] [address] | | | | | | [phone] | | | | | | | | +--------+---------+ + + + | 03/01/ | Office | Pulmonology | Mukul Clark MD | | | 2020 | Visit | | [address] | | | | | | [place] | | | | | | [address] | | | | | | | | +--------+---------+ + + + documented as of this encounter Visit Diagnoses + + | Diagnosis | + + | Racing heart beat Tachycardia, unspecified | + + documented in this encounter"
--- OUTSIDE RECORDS SUMMARY | ~2019-09-27 | XMS | Encounter Summary ---
Demographics + + + | Address | [address] | | | [place] [address] | + + + | Home Phone [...] Providers + +------+ + | Care Hand Finisher Name | Role | Phone | + [...] Closed | | Radiology | Diagnoses | Segovia, | [facility] | | | | | Headache | Shashi Witt, | [address] | | | | | Pituitary | MD Need | [place], | | | | | tumor | updated | [place] | | | | | Procedures | address | [address] | | | | | CT Head w wo | | Phone: | | | | | Contrast | | [phone] | | | | | | | Fax: | | | | | | | [phone] | +--------+--------+ + + + + Reason for Visit +--------+--------+ + | Reason | Onset | Comments | | | Date | | +--------+--------+ + | Other | 11/24/ | Schedule MRI | | | 2013 | | +--------+--------+ + Encounter Details +--------+ + + + + | Date | Type | Department | Care Team | Description | +--------+ + + + + | 11/24/ | Telephone | [facility] | Aneta Rain | Other (Schedule MRI) | | 2013 | | NEUROLOGY ADRIANA | N, RN | | | | | [address], | | | | | | [address] [place] | | | | | | [place] [address] | | | | | | [phone] | | | +--------+ + + + [...] this encounter Miscellaneous Notes Telephone Encounter - Aneta Rain RN - 12/07/2013 1:30 PM PDTNo answer. LVM to in form patient of change from MRI to CT per Dr. Segovia. Will call her back once CT is autho rized to schedule. Telephone Encounter - Shashi Segovia MD - 12/06/2013 9:09 PM PDTPlease inform patien t that given these metal objects are not removable, we will have to change our imaging techn ique to CT. The order has been changed. CT will provide less information regarding any poten tial pituitary lesion, but there is no other option until patient has metal removed. Electro nically signed by Shashi Segovia MD at 12/06/2013 9:10 PM PDTTelephone Encounter - Aneta Zapata RN - 12/06/2013 11:57 AM PDTCalled and spoke with patient. Her earring an d nose stud are not removeable, or at least she is not willing to remove them because it nevaeh l take so long and the hole might close up. She is not planning on getting them out. She jenkins s think she has had imaging done with them in in the past, but I do not think it was a Brain MRI. Her chart only has CT and xray.Electronically signed by Aneta Rain RN at 11/24 12:04 PM PDTTelephone Encounter - Aneta Rain RN - 11/30/2013 10:14 AM PDTAt tempted to return call but no answer. LVM. elephone Encounter - Corina Guillen - 11/30/2013 8:15 AM PDTPat ient left a voicemail stating she was returning a call. elephone Encounter - Aneta Rain RN - 11/29/2013 2 :28 PM PDTNo answer. LVM elephone Encounter - Shashi Segovia MD - 11/28/2013 10:49 AM PDTSteph, Can we call Ms. Malik and ensure that her earring and nose stud are indeed not removable? Also please ask if she is getting them replaced at any time in the future. Please ask if she has had an MRI with these metal pieces in place. There is no urgency to getting the scan do ne, so if we are unable to get the metal taken out, we will put it on hold. Thanks elephone Encounter - Aneta Rain RN - 11/24/2013 9:59 AM PDTCalled patient to schedule MRI. She has permanent stainless steel earrings in ear and nose. Imaging Dept suggested Dr. Kiko conway speak with radiologist before scheduling MRI. documented in this encounter Plan of Treatment [...] [place] | | | | | | [address] | | | | | | | | +--------+---------+ + + + | 11/24/ | Office | Cardiology | [place], | | | 2019 | Visit | | SINDHU Erickson [address] | | | | | | [address] [place], | | | | | | [place] [address] | | | | | | [phone] | | | | | | | | +--------+---------+ + + + | 03/01/ | Office | Pulmonology | Mukul Clark MD | | | 2020 | Visit | | [address] | | | | | | [place] | | | | | | [address] | | | | | | | | +--------+---------+ + + + documented as of this encounter Results CT Head w wo [...] + | MISCELLANEOUS LAB | | | [phone] | + +---------+ + + | MISCELANIOUS LAB | | | [phone] | + +---------+ + + documented in this encounter Visit Diagnoses + + | Diagnosis | + + | Headache - Primary | + + | 

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
--- OUTSIDE RECORDS SUMMARY | ~2019-09-27 | XMS | Encounter Summary ---
Demographics + + + | Address | [address] | | | [place] [address] | + + + | Home Phone [...] Providers + +------+ + | Care Casing Running Machine Tender Name | Role | Phone [...] [address] | call) | | | | Leola [place], | [place] | | | | | [place] [address] | [address] | | | | | [phone] | | | +--------+ + + + [...] 11/18/2013 4:13 PM PDTRelayed this message asiya Ponce. Okay per patient. 4: 13 PM PDTTelephone [...] [place] | | | | | | [address] | | | | | | | | +--------+---------+ + + + | 11/24/ | Office | Cardiology | [place] | | | 2019 | Visit | | SINDHU Erickson [address] | | | | | | [place] | | | | | | [place] [address] | | | | | | [phone] | | | | | | | | +--------+---------+ + + + | 03/01/ | Office | Pulmonology | Mukul Clark MD | | | 2020 | Visit | | [address] | | | | | | [place] | | | | | | [address] | | | | | | | | +--------+---------+ + + + documented as of this encounter Visit Diagnoses Not on filedocumented in this encounter"
--- OUTSIDE RECORDS SUMMARY | ~2019-09-27 | XMS | Encounter Summary ---
Demographics + + + | Address | [address] | | | [place] [address] | + + + | Home Phone [...] Team Providers + +------+ + | Care Soft Work Wrapper Layer And Examiner Name | Role | Phone | + +------+ + PCP | Unavailable | + +------+ + Encounter Details +--------+ + + + + | Date | Type | Department | Care Team | Description | +--------+ + + + + | 01/24/ | [facility] | [facility] | | | | 2008 - | Encounter | MED CTR OP REHAB | | | | | | [address] [place] | | | | 02/23/ | | [place] [address] | | | | 2008 | | [phone] | | | +--------+ + + + [...] | | | | | | [place] [address] | | | | | | [phone] | | | | | | | | +--------+---------+ + + + | 03/01/ | Office | Pulmonology | Mukul Clark MD | | | 2020 | Visit | | [address] | | | | | | [place] | | | | | | [address] | | | | | | | | +--------+---------+ + + + documented as of this encounter Visit Diagnoses Not on filedocumented in this encounter"
--- OUTSIDE RECORDS SUMMARY | ~2019-09-27 | XMS | Encounter Summary ---
Demographics + + + | Address | [address] | | | [place] [address] | + + + | Home Phone [...] Team Providers + +------+ + | Care Motorcycle Repair Shop Supervisor Name | Role | Phone [...] | | | | CENTER [address] | | carried out because | | | | [place] | | of patient's | | | | [address] | | decision (Primary | | | | [phone] | | Dx) | +--------+ + + [...] | | | | | order to [facility]. | | | | | [...] [place] | | | | | | [address] | | | | | | | | +--------+---------+ + + + | 11/24/ | Office | Cardiology | [place], | | | 2019 | Visit | | SINDHU Erickson [address] | | | | | | [address] [place], | | | | | | [place] [address] | | | | | | [phone] | | | | | | | | +--------+---------+ + + + | 03/01/ | Office | Pulmonology | Mukul Clark MD | | | 2020 | Visit | | [address] | | | | | | [place] | | | | | | [address] | | | | | | | | +--------+---------+ + + + documented as of this encounter Visit Diagnoses + + | Diagnosis | + + | Surgical or other procedure not carried out because of patient's decision - Primary | + + documented in this encounter"
--- OUTSIDE RECORDS SUMMARY | ~2019-09-27 | XMS | Encounter Summary ---
Demographics + + + | Address | [address] | | | [place] [address] | + + + | Home Phone [...] Team Providers + +------+ + | Care Juice Standardizer Name | Role | Phone | + +------+ + | Juan Cherry DO | PCP | | + +------+ + Encounter Details +--------+---------+ + + + | Date | Type | Department | Care Team | Description | +--------+---------+ + + + | 06/06/ | Office | [facility] | Jared Mcdonough, | Chronic obstructive | | 2017 | Visit | MED CTR CARDIAC | [address] | pulmonary disease, | | | | REHABILITATION [address] [facility] [facility], | unspecified COPD | | | | [address] [place] | [place] [address] | type (HCC) (Primary | | | | [place] [address] | [phone] | Dx); Pulmonary | | | | [phone] | | emphysema, | | | | [...] Desean Chris - 06/06/2016 3:12 PM PDT [facility] RE[facility]ATION [address] [place] [address] Cardiac Rehab Date: 06/06/2016 Patient Information Patient [...] [place] | | | | | | [address] | | | | | | | | +--------+---------+ + + + | 11/24/ | Office | Cardiology | [place], | | | 2019 | Visit | | SINDHU Erickson [address] | | | | | | [place], | | | | | | [place] [address] | | | | | | [phone] | | | | | | | | +--------+---------+ + + + | 03/01/ | Office | Pulmonology | Mukul Clark MD | | | 2020 | Visit | | [address] | | | | | | [place] | | | | | | [address] | | | | | | | | +--------+---------+ + + + documented as of this encounter Visit Diagnoses + + | Diagnosis | + + | Chronic obstructive pulmonary disease, unspecified COPD type (HCC) - Primary | + + | Pulmonary emphysema, unspecified emphysema type (HCC) | + + documented in this encounter"
--- OUTSIDE RECORDS SUMMARY | ~2019-09-27 | XMS | Encounter Summary ---
Demographics + + + | Address | [address] | | | [place] [address] | + + + | Home Phone [...] Providers + +------+ + | Care Polisher Eyeglass Frames Name | Role | Phone | + +------+ + | Juan Cherry DO | PCP | | + +------+ + Reason for Visit + +--------+ + | Reason | Onset | Comments | | | Date | | + +--------+ + | Lab Order | 08/01/ | due for fasting labs | | | 2015 | | + +--------+ + Encounter Details +--------+ + + + + | Date | Type | Department | Care Team | Description | +--------+ + + + + | 08/01/ | Telephone | [facility] [place] | [place], | Lab Order (due for | | 2015 | | CARDIOLOGY [address] | Georgina, UTILITIES EQUIPMENT REPAIRER [address] | fasting labs) | | | | [place], | [place], | | | | | [place] [address] | [place] [address] | | | | | [phone] | [phone] | | | | | | | [...] Telephone Encounter - Nilda Escalona RN - 08/02/2015 2:55 PM PDTOrder done ............ ...............................Nilda Escalona RN on 08/02/15 at 14:55 elephone Encounter - Maxim Jin Cert MA - 08/02/2015 2:49 PM PDTPatients appointment 08/08/2015. Leeann braden is due for fasting labs (Lipid) prior to their appointment. Orders will be in our system t o be drawn here. d ocumented in this encounter Plan of [...] [place] | | | | | | [address] | | | | | | | | +--------+---------+ + + + | 11/24/ | Office | Cardiology | [place], | | | 2019 | Visit | | SINDHU Erickson [address] | | | | | | [place], | | | | | | [place] [address] | | | | | | [phone] | | | | | | | | +--------+---------+ + + + | 03/01/ | Office | Pulmonology | Mukul Clark MD | | | 2020 | Visit | | [address] | | | | | | [place] | | | | | | [address] | | | | | | | [...]
--- OUTSIDE RECORDS SUMMARY | ~2019-09-27 | XMS | Encounter Summary ---
Demographics + + + | Address | [address] | | | [place] [address] | + + + | Home Phone [...] Team Providers + +------+ + | Care Pharmacist In Charge Owner Name | Role | Phone | + +------+ + PCP | Unavailable | + +------+ + Encounter Details +--------+ + + + + | Date | Type | Department | Care Team | Description | +--------+ + + + + | 10/19/ | [facility] | [facility] | | | | 2008 | Encounter | MED CTR LABORATORY | | | | | | [address] [place] | | | | | | [place] | | | | | | [address] | | | | | | [phone] | | | +--------+ + + + [...] | | | | | | [place] [address] | | | | | | [phone] | | | | | | | | +--------+---------+ + + + | 03/01/ | Office | Pulmonology | Mukul Clark MD | | | 2020 | Visit | | [address] | | | | | | [place] | | | | | | [address] | | | | | | | | +--------+---------+ + + + documented as of this encounter Visit Diagnoses Not on filedocumented in this encounter"
--- OUTSIDE RECORDS SUMMARY | ~2019-09-27 | XMS | Encounter Summary ---
Demographics + + + | Address | [address] | | | [place] [address] | + + + | Home Phone [...] Team Providers + +------+ + | Care Broadband Installer Name | Role | Phone | + +------+ + PCP | Unavailable | + +------+ + Encounter Details +--------+ + + + + | Date | Type | Department | Care Team | Description | +--------+ + + + + | 05/01/ | Hospital | [facility] | Alexi Guaman, | | | 2010 | Encounter | MED CTR EMERGENCY | [address] | | | | | CENTER [address] | [place] | | | | | [place] | [address] | | | | | [address] | | | | | | [phone] | | | +--------+ + + + [...] past. She has an appointment with an geography head on Friday. She said, she is having an extens wanda workup being done in the [facility]. She has been doing okay, and [...] and told to follow up with her geography head, and return if she gets worse. DIAGNOSIS: DIZZINESS AND WEAKNESS. DISPOSITION: Home. DICTATED BY: Alexi Guaman M.D. Emergency Medicine JOB #: [id number] EXT JOB #:[id number] <Electronicall y Signed by Alexi Guaman MD> [...] [address] | | | | | [place] [address] | | | | | | [phone] | | | | | | | | +--------+---------+ + + + | 03/01/ | Office | Pulmonology | Mukul Clark MD | | | 2020 | Visit | | [address] | | | | | | [place] | | | | | | [address] | | | | | | | [...] [address] | [place] | [phone] | | [facility] | | [address] | | | - LABORATORY | | | | + + + + + | [facility] | [address] | [place] | | | [facility] | | [address] | | | - LABORATORY | | [...] + | [facility] | [address] | [place], [place] | [phone] | | [facility] | | [address] | | | - LABORATORY | | | | + + + + + | [facility] | [address] | [place] | | | [facility] | | [id number] [place] [address] | | | - LABORATORY | | | | + + + + + XR Chest PA or AP (05/01/2010 5:32 PM PST) + + | Specimen | + + | | + + + + + | Narrative | Performed At | + + + | [facility] Diagnostic Imaging Department | [facility] | | [address] | [facility] | | PORTABLE CHEST, 05/01/2010 AT | [facility] | | 1803 CLINICAL HISTORY: DIZZINESS. COMPARISON: 02/27/2010 | | [...] Transcribed Date/Time: | | | 05/02/2010 11:54 Informatics Developer: <Electronically Signed | | | by Cesar Ren MD> 05/02/10 4666 | | + + + + ---------+ | Procedure Note | + ---------+ | Reed, Rad Conversion - 04/02/2013 2:24 PM [facility] | | Diagnostic Imaging Department [address] [place] [address] | | PORTABLE CHEST, 05/01/2010 AT 1807 [...] 11:04 Transcribed Date/Time: 05/02/2010 11:54 | | Informatics Developer: <Electronically Signed by Cesar Ren MD> 05/02/10 2980 | |CLINICAL HISTORY: DIZZINESS. | | | [...] 11:04 | |Transcribed Date/Time: 05/02/2010 11:54 | |Informatics Developer: | |<Electronically Signed by Cesar Ren MD> [...]
--- OUTSIDE RECORDS SUMMARY | ~2019-09-27 | XMS | Encounter Summary ---
Demographics + + + | Address | [address] | | | [place] [address] | + + + | Home Phone [...] Providers + +------+ + | Care Property Site Manager Name | Role | Phone | + +------+ + PCP | Unavailable | + +------+ + Encounter Details +--------+ + + + + | Date | Type | Department | Care Team | Description | +--------+ + + + + | 09/15/ | Hospital | [facility] | Rocky Rodriguez | | | 2010 | Encounter | MED CTR EMERGENCY | MD Kyler [address] | | | | | CENTER [address] | [address] [facility] | | | | | [place], [place] | [place] [address] | | | | | [address] | [phone] | | | | | [phone] | | | +--------+ + + + [...] documented as of this encounter ED Notes Rocky Rodriguez MD - 09/15/2010 2:19 PM PDTDATE: 09/15/2010 PRIMARY PHYSICIAN: Juan Cherry DO and Lencho Goss MD CHIEF COMPLAINT: Abdominal pain. HISTORY OF PRESENT ILLNESS: The patient is a 45-year-old female with a history of recurren t divertic ulitis. She started having symptoms in the left lower quadrant yesterday, had so me fever at times. Sh e has had some nausea but no vomiting. She has had constipation. This has been a chronic, ongoing pro blem for 10 years. She had an appointment to see Dr. Goss next week but could not wait until that oc curred. PAST MEDICAL HISTORY: Recurrent diverticulitis, pituitary tumor, which she is starting moiz e type of oral medication on Friday. She has hypothyroidism and osteoporosis and depression . CURRENT MEDICATIONS 1. Effexor. 2. Geodon. 3. Tramadol. 4. Potassium. 5. Levothyroxine. 6. Neurontin. 7. Lexapro. 8. Atelvia. ALLERGIES 1. ERYTHROMYCIN. 2. DEMEROL. 3. NSAIDS. SOCIAL HISTORY: Smokes cigarettes. Does not drink regularly but does occasionally. REVIEW OF SYSTEMS: She has had a hysterectomy, hernia repair, and has fibromyalgia, otherw ise negati ve. PHYSICAL EXAMINATION VITAL SIGNS: Blood pressure 98/52, heart rate 108, respiratory rate 20, temp 99.6, pulse o ximetry 96 % on room air. GENERAL: She is not in acute distress, looks a little uncomfortable. HEENT: Pupils equal, round, react to light. Oropharynx is moist. NECK: Supple. No adenopathy. CARDIOVASCULAR: Exam reveals regular rate and rhythm. No murmur or rubs. LUNGS: Clear to auscultation bilaterally. ABDOMEN: Soft. She has some tenderness to palpation in the left lower quadrant but nowhere else. The rest of her abdomen is nontender. She has no guarding or rebound tenderness. IMPRESSION: ACUTE DIVERTICULITIS. At this point, the patient does not look toxic from this . I think we can probably treat herself as an outpatient. She is given Cipro 500 mg, Flagyl 500 mg, 2 Vicodin, and 8 mg Zofran ODT. She will be discharged home with Vicodin and Herve zine, Cipro and Flagyl. She wi ll see Dr. Goss this coming week, as planned, but return he re if the pains are worsening or she is h aving vomiting or other issues. DICTATED BY: Emiliano Rodriguez MD Emergency Medicine JOB #: [id number] EXT JOB #:[id number] cc: DO Lencho Guillaume MD <Electronically Signed by Miryam Rodriguez MD> 09/16/10 1358 documented in this encounter Plan of Treatment [...] | | | | | | [place] [address] | | | | | | [phone] | | | | | | | | +--------+---------+ + + + | 03/01/ | Office | Pulmonology | Mukul Clark MD | | | 2020 | Visit | | [address] | | | | | | [place] | | | | | | [address] | | | | | | | | +--------+---------+ + + + documented as of this encounter Visit Diagnoses Not on filedocumented in this encounter"
--- OUTSIDE RECORDS SUMMARY | ~2019-09-27 | XMS | Encounter Summary ---
Demographics + + + | Address | [address] | | | [place] [address] | + + + | Home Phone [...] Providers + +------+ + | Care Title Manager Name | Role | Phone | [...] [place] | | | | | [address] | [place] [address] | | | | | [phone] | [phone] | | | | | | | [...] | | | | | | [place] [address] | | | | | | [phone] | | | | | | | [...]
--- OUTSIDE RECORDS SUMMARY | ~2019-09-27 | XMS | Encounter Summary ---
Demographics + + + | Address | [address] | | | [place] [address] | + + + | Home Phone [...] Team Providers + +------+ + | Care Registered Diet Technician Name | Role | Phone | [...] [address] | | | | | [place], | [place] | | | | | [place] [address] | [address] | | | | | [phone] | | | +--------+--------+ + + + [...] | | | | | | [place] [address] | | | | | | [phone] | | | | | | | [...]
--- OUTSIDE RECORDS SUMMARY | ~2019-09-27 | XMS | Encounter Summary ---
Demographics + + + | Address | [address] | | | [place] [address] | + + + | Home Phone [...] Providers + +------+ + | Care Industrial Engineering Analyst Name | Role | Phone | + +------+ + | Juan Cherry DO | PCP | | + +------+ + Reason for Visit + +--------+ + | Reason | Onset | Comments | | | Date | | + +--------+ + | Medication Refill | 03/18/ | | | | 2014 | | + +--------+ + Encounter Details +--------+--------+ + + + | Date | Type | Department | Care Team | Description | +--------+--------+ + + + | 03/18/ | Refill | [facility] | Offenstein, | Medication Refill | | 2013 | | PULMONARY [address] | Loreta Alonso MD | | | | | [place], | | | | | | [place] [address] | | | | | | [phone] | | | +--------+--------+ + + + [...] | | | | | | [place] [address] | | | | | | [phone] | | | | | | | | +--------+---------+ + + + | 03/01/ | Office | Pulmonology | Mukul Clark MD | | | 2020 | Visit | | [address] | | | | | | [place] | | | | | | [address] | | | | | | | | +--------+---------+ + + + documented as of this encounter Visit Diagnoses Not on filedocumented in this encounter"
--- OUTSIDE RECORDS SUMMARY | ~2019-09-27 | XMS | Encounter Summary ---
Demographics + + + | Address | [address] | | | [place] [address] | + + + | Home Phone [...] Team Providers + +------+ + | Care National Account Executive Name | Role | Phone | + +------+ + | Juan Cherry DO | PCP | | + +------+ + Encounter Details +--------+ + + + + | Date | Type | Department | Care Team | Description | +--------+ + + + + | 02/27/ | Hospital | [facility] | Mukul Clark MD | Pulmonary emphysema, | | 2017 | Encounter | MED CTR PULMONARY | [address] | unspecified | | | | FUNCTION [address] | [place] | emphysema type (HCC) | | | | [place], | [address] | | | | | [place] [address] | | | | | | [phone] | | | +--------+ + + + [...] | | | | | | | [facility] | | | | | | | [...] + +---------+ + + | B-D 3CC NOHEMY | | | 0 | 09/13/19 | | | SYR 25GX1/2" 25G X | | | | 16 | 7 | | 1-/2" 3 ML MISC | | | | | | + + + +---------+ + + | | Take 1 capsule by | | 0 | 10/13/19 | | | Zlsfxvczrx-VEZS-Tblt | mouth as needed. | | | 16 | 7 | | -Cod [id number] MG | | | | | | [...] encounter Procedure Notes Kevin Sandoval MD - 02/29/2016 6:30 AM PSTAssociated Order(s): PFT PULMONARY FUNCTION TESTING ORDERSProcedure(s): PFT PULMONARY FUNCTION TESTING ORDERSPre-Procedure Diagnose(s): Pulmonary emphysema, unspecified emphysema type (HCC) PULMONARY FUNCTION TESTING SPIROMETRY: The prebronchodilator FVC was 2.65 L or 84 % of predicted. The prebronchodilato r FEV1 was 1.43 L or 55 % of predicted. FEV1/FVC ratio was 54 %. No significant change in a irflow following inhalation of bronchodilators. LUNG VOLUMES: The patient was unable to perform lung volume measurement to ATS standards. DIFFUSION CAPACITY: The diffusion capacity was 16.4 mL/mmHg per minute or 65 % of predicted . IMPRESSION: Spirometry is consistent with moderate obstructive physiology.Diffusion capacit y is mildly reduced and is not corrected for measured hemoglobin. Compared to pulmonary function tests performed 11/14/11 the patient's post bronchodilator FE V1 as fallen and apparent 39%. The diffusion capacity has decreased an apparent 7%. Test performed: 02/28/16 Electronically signed by: Kevin Sandoval MD 02/29/2016 6:30 [facility] Kevin Sandoval MD at 6:34 AM PSTdocumented in this encounter Plan of [...] [place] | | | | | | [address] | | | | | | | | +--------+---------+ + + + | 11/24/ | Office | Cardiology | [place], | | | 2019 | Visit | | SINDHU Erickson [address] | | | | | | [place] | | | | | | [place] [address] | | | | | | [phone] | | | | | | | | +--------+---------+ + + + | 03/01/ | Office | Pulmonology | Mukul Clark MD | | | 2020 | Visit | | [address] | | | | | | [place] | | | | | | [address] | | | | | | | [...] | | | Romi Sandoval [facility]2016 [facility] | | |IMPRESSION: Spirometry is consistent [...] Kevin Sandoval MD 02/29/2016 6:30 | | |[facility] | | + + + documented [...]
--- OUTSIDE RECORDS SUMMARY | ~2019-09-27 | XMS | Encounter Summary ---
Demographics + + + | Address | [address] | | | [place] [address] | + + + | Home Phone [...] Team Providers + +------+ + | Care Performing Artist Name | Role | Phone | [...] + | 07/09/ | Clinical | [facility] | Andriy Weber | Bladder pain | | 2018 | Support | [address] | MD [address] | (Primary Dx) | | | | [place] | [place] | | | | | [address] | [facility] [address] | | | | | [phone] | [phone] | | | | | | | [...] [place] | | | | | | [address] | | | | | | | | +--------+---------+ + + + | 11/24/ | Office | Cardiology | [place], | | | 2019 | Visit | | SINDHU Erickson [address] | | | | | | [place], | | | | | | [place] [address] | | | | | | [phone] | | | | | | | | +--------+---------+ + + + | 03/01/ | Office | Pulmonology | Mukul Clark MD | | | 2020 | Visit | | [address] | | | | | | [place] | | | | | | [address] | | | | | | | [...]
--- OUTSIDE RECORDS SUMMARY | ~2019-09-27 | XMS | Encounter Summary ---
Demographics + + + | Address | [address] | | | [place] [address] | + + + | Home Phone [...] Providers + +------+ + | Care Steam Hoist Operator Name | Role | Phone [...] Description | +--------+--------+ + + + | 06/17/ | Refill | [facility] | Mukul Clark MD | Medication Refill | | 2020 | | PULMONOLOGY [address] | | | | | [address] | [place], [place] | | | | | [place], [place] | [address] | | | | | [address] | | | | | | [phone] | | | +--------+--------+ + + + [...] documented as of this encounter Miscellaneous Notes Addendum Note - Sherrell Reynolds MD - 07/09/2019 4:07 PM PDT Addended by: SHERRELL DUONG on: 07/09/2019 04:07 PM Modules accepted: Orders elepho ne Encounter - Sherrell Reynolds MD - 07/09/2019 4:06 PM PDTRefilled Advair for Ms Malik. Sherrell Reynolds MD Pulmonary and Critical Care Medicine [facility] [address], [facility] [place] [address] documente d in this encounter Plan of [...] [place] | | | | | | [address] | | | | | | | | +--------+---------+ + + + | 11/24/ | Office | Cardiology | [place], | | | 2019 | Visit | | SINDHU Erickson [address] | | | | | | [place], | | | | | | [place] [address] | | | | | | [phone] | | | | | | | | +--------+---------+ + + + | 03/01/ | Office | Pulmonology | Mukul Clark MD | | | 2020 | Visit | | [address] | | | | | | [place] | | | | | | [address] | | | | | | | | +--------+---------+ + + + documented as of this encounter Visit Diagnoses + + | Diagnosis | + + | Centrilobular emphysema (HCC) - Primary | + + documented in this encounter"
--- OUTSIDE RECORDS SUMMARY | ~2019-09-27 | XMS | Encounter Summary ---
Demographics + + + | Address | [address] | | | [place] [address] | + + + | Home Phone [...] Team Providers + +------+ + | Care Quencher Operator Name | Role | Phone | [...] [address] | [address] | ([facility]) (Primary Dx) | | | | [place] | [place] [address] | | | | | [address] | [phone] | | | | | [phone] | | | +--------+---------+ + + + [...] prednisone, add zithromax FU 3 days with orthotic technician. documented in this enc ounter Miscellaneous Notes Plan of Care - ONBASE SCAN [facility] - 05/28/2013 12:00 AM PDT lan of Care - [facility]BASE SCAN [facility] - 05/28/2013 12:00 AM PDTElect ronically signed [...] [place] | | | | | | [address] | | | | | | | | +--------+---------+ + + + | 11/24/ | Office | Cardiology | [place], | | | 2019 | Visit | | SINDHU Erickson [address] | | | | | | [place], | | | | | | [place] [address] | | | | | | [phone] | | | | | | | | +--------+---------+ + + + | 03/01/ | Office | Pulmonology | Mukul Clark MD | | | 2020 | Visit | | [address] | | | | | | [place] | | | | | | [address] | | | | | | | | +--------+---------+ + + + documented as of this encounter Visit Diagnoses + + | Diagnosis | + + | COPD exacerbation (HCC) - Primary Obstructive chronic bronchitis with exacerbation | + + documented in this encounter
--- OUTSIDE RECORDS SUMMARY | ~2019-09-27 | XMS | Encounter Summary ---
Demographics + + + | Address | [address] | | | [place] [address] | + + + | Home Phone [...] | [facility] | | | [...] Team Providers + +------+ + | Care Tariff Supervisor Name | Role | Phone | + +------+ + PCP | Unavailable | + +------+ + Encounter Details +--------+ + + + + | Date | Type | Department | Care Team | Description | +--------+ + + + + | 12/19/ | [facility] | [facility] | | | | 2009 | Encounter | MED CTR LABORATORY | | | | | | [address] [place] | | | | | | [place] | | | | | | [address] | | | | | | [phone] | | | +--------+ + + + [...] | | | | | | [place] [address] | | | | | | [phone] | | | | | | | | +--------+---------+ + + + | 03/01/ | Office | Pulmonology | Mukul Clark MD | | | 2020 | Visit | | [address] | | | | | | [place] | | | | | | [address] | | | | | | | | +--------+---------+ + + + documented as of this encounter Visit Diagnoses Not on filedocumented in this encounter"
--- OUTSIDE RECORDS SUMMARY | ~2019-09-27 | XMS | Encounter Summary ---
Demographics + + + | Address | [address] | | | [place] [address] | + + + | Home Phone [...] Team Providers + +------+ + | Care Branding Specialist Name | Role | Phone | [...] | | Dx) | | | | [address] | | | | | | [phone] | | | +--------+ + + + [...] have not thoroughly proofread this note, and personal lines insurance advisor erro rs may occur. Nancy Simms C MA - 11/01/2015 8:22 AM PDT Pt. Presents for a DMSO #2 for Interstitial Cystitis. Administrations This Visit dimethyl sulfoxide (RIMSO-50) 50% solution 50 mL Admin Date Action Dose Route Administered By 11/01/2015 Given 50 mL Bladder Instillation Nancy Dalal CMA heparin 10,000 units/mL injection 10,000 Units Admin Date Action Dose Route Administered By 11/01/2015 Given 18705 Units Subcutaneous Nancy Dalal CMA lidocaine 2% [...] [place] | | | | | | [address] | | | | | | | | +--------+---------+ + + + | 11/24/ | Office | Cardiology | [place], | | | 2019 | Visit | | SINDHU Erickson [address] | | | | | | [place], | | | | | | [place] [address] | | | | | | [phone] | | | | | | | | +--------+---------+ + + + | 03/01/ | Office | Pulmonology | Mukul Clark MD | | | 2020 | Visit | | [address] | | | | | | [place] | | | | | | [id number] | | | | | | | [...] 1.001 - 1.030 | | | | [place], | | | | | | [facility], [...]
--- OUTSIDE RECORDS SUMMARY | ~2019-09-27 | XMS | Encounter Summary ---
Demographics + + + | Address | [address] | | | [place] [address] | + + + | Home Phone [...] Providers + +------+ + | Care Assistant Operator Name | Role | Phone | [...] | Concussion | Aaron Kim MD | Diesel Pile Driver Operator [address] | | | Required | | with brief | [address] | [place] | | | | | loss of | [address] | [place], [place] | | | | | consciousnes | [place], | [address] | | | | | s Word | [place] [address] | Phone: | | | | | finding | Phone: | [phone] | | | | | difficulty | [phone] | Fax: | | | | | [id number] | Fax: | [phone] | | | | | (ICD-10-CM) | [phone] | | | | | | - [...] + + | 07/18/ | Hospital | [facility] | Aaron Rodriguez, | Canceled (Illness) | | 2017 | Encounter | MED CTR SPEECH | [address] | | | | | THERAPY [address] | [place] | | | | | [place], | [address] | | | | | [place] [address] | | | | | | [phone] | Cesia Su | | | | | | M, Speech | | | | | | Pathologist [address] | | | | | | [address] [place] | | | | | | [place] [address] | | | | | | [phone] | | | | | | | [...] Speech Pathologist - 07/18/2016 9:41 [facility] [address] [place] [address] Cancellation/No Show Date: 07/18/2016 Patient Information Patient [...] [place] | | | | | | [address] | | | | | | | | +--------+---------+ + + + | 11/24/ | Office | Cardiology | [place], | | | 2019 | Visit | | SINDHU Erickson [address] | | | | | | [place], | | | | | | [place] [address] | | | | | | [phone] | | | | | | | | +--------+---------+ + + + | 03/01/ | Office | Pulmonology | Mukul Clark MD | | | 2020 | Visit | | [address] | | | | | | [place] | | | | | | [address] | | | | | | | | +--------+---------+ + + + documented as of this encounter Visit Diagnoses Not on filedocumented in this encounter"
--- OUTSIDE RECORDS SUMMARY | ~2019-09-27 | XMS | Encounter Summary ---
Demographics + + + | Address | [address] | | | [place] [address] | + + + | Home Phone [...] Team Providers + +------+ + | Care Piano Assembler Name | Role | Phone | [...] Dx); Migraine | | | | [address], | address | | | | | [address] [place] | | | | | | [place] [address] | | | | | | [phone] | | | +--------+ + + + [...] [place] | | | | | | [address] | | | | | | | | +--------+---------+ + + + | 11/24/ | Office | Cardiology | [place], | | | 2020 | Visit | | SINDHU Erickson [address] | | | | | | [place] | | | | | | [place] [address] | | | | | | [phone] | | | | | | | | +--------+---------+ + + + | 03/01/ | Office | Pulmonology | Mukul Clark MD | | | 2020 | Visit | | [address] | | | | | | [place] | | | | | | [address] | | | | | | | [...]
--- OUTSIDE RECORDS SUMMARY | ~2019-09-27 | XMS | Encounter Summary ---
Demographics + + + | Address | [address] | | | [place] [address] | + + + | Home Phone [...] + +------+ + | Care Account Executive Agribusiness Name | Role | Phone | + [...] [address] | | | | | [place], | [address] [place] | | | | | [place] [address] | [place] [address] | | | | | [phone] | [phone] | | | | | | | [...] Notes Cesia Su, Speech Pathologist - 07/18/2016 10:[address] [facility] [address] [place] [address] Cancellation/No Show Date: 07/18/2016 Patient Information Patient Name: Rosario Malik Date of : 1965 Age: 51 y.o. Reason for missed visit:Pt is sick Phone call placed: yes - called to cancel Plan: Continue POC at next scheduled visit Electronically signed by: Cesia Su, Speech Pathologist, 07/18/2016 10:08 Patient Name: Rosario [...] | | | | | | [place] [address] | | | | | | [phone] | | | | | | | [...]
--- OUTSIDE RECORDS SUMMARY | ~2019-09-27 | XMS | Encounter Summary ---
Demographics + + + | Address | [address] | | | [place] [address] | + + + | Home Phone [...] Team Providers + +------+ + | Care Night Stocker Name | Role | Phone | + +------+ + | Juan Cherry DO | PCP | | + +------+ + Encounter Details +--------+ + + + + | Date | Type | Department | Care Team | Description | +--------+ + + + + | 09/09/ | Hospital | [facility] | Conversion | Pain | | 2015 | Encounter | CONVERSION [address] | Transaction, | | | | | [address] | Provider Unknown | | | | | [place], [place] | [phone] | | | | | [address] | | | | | | [phone] | | | +--------+ + + + [...] | | | | order to [facility]. | | | | | + [...] [place] | | | | | | [address] | | | | | | | | +--------+---------+ + + + | 11/24/ | Office | Cardiology | [place], | | | 2019 | Visit | | SINDHU Erickson [address] | | | | | | [place] | | | | | | [place] [address] | | | | | | [phone] | | | | | | | | +--------+---------+ + + + | 03/01/ | Office | Pulmonology | Mukul Clark MD | | | 2020 | Visit | | [address] | | | | | | [place] | | | | | | [address] | | | | | | | [...]
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
--- OUTSIDE RECORDS SUMMARY | ~2019-09-27 | XMS | Encounter Summary ---
Demographics + + + | Address | [address] | | | [place] [address] | + + + | Home Phone [...] Team Providers + +------+ + | Care Repair Weaver Name | Role | Phone | + +------+ + | Juan Cherry DO | PCP | | + +------+ + Reason for Visit +--------+--------+ + | Reason | Onset | Comments | | | Date | | +--------+--------+ + | Other | 04/20/ | | | | 2012 | | +--------+--------+ + Encounter Details +--------+ + + + + | Date | Type | Department | Care Team | Description | +--------+ + + + + | 04/20/ | Telephone | [facility] [place] | Marilyn Osborne, | Other | | 2012 | | PULMONARY [address] | RN | | | | | [place], | | | | | | [place] [address] | | | | | | [phone] | | | +--------+ + + + [...] Telephone Encounter - Marilyn Osborne RN - 04/20/2012 3:03 PM PSTThis message was relay ed to Rosario. elep lynda Encounter - Loreta London MD - 04/20/2012 9:49 AM PSTWe have not received thi s. She needs to increase her compliance to at least 50%, or yes it will be taken away. She h as improved, but there is only so much we can do. If we get documentation that this will hap pen, and her machine will be taken away, then I can try writing a letter. That being said, i f she does not consistently use the CPAP, it will be denied. elephone Gisele andino - Marilyn Osborne RN - 04/20/2012 9:38 AM PSTGretchen called stating that she recei castillo another letter from [facility] saying that the insurance may not pay for her CPAP. She took he r card in this morning for a download and is having the sleep study tonight.Electronically s igned by Marilyn Osborne, RN at 04/20/2012 9:40 AM PSTdocumented in this encounter Plan of Treatment +--------+---------+ + + + | Date | Type | Specialty | Care Team | Description | +--------+---------+ + + + | 09/27/ | Office | Sleep Medicine | Meghan Garcia MD | | | 2019 | Visit | | [address] [facility] | | | | | | [place] | | | | | | [address] | | | | | | | | +--------+---------+ + + + | 11/24/ | Office | Cardiology | [place], | | | 2019 | Visit | | SINDHU Erickson [address] | | | | | | [place], | | | | | | [place] [address] | | | | | | [phone] | | | | | | | [...]
--- OUTSIDE RECORDS SUMMARY | ~2019-09-27 | XMS | Encounter Summary ---
Demographics + + + | Address | [address] | | | [place] [address] | + + + | Home Phone [...] Team Providers + +------+ + | Care Signaler Name | Role | Phone | + [...] + + | 04/15/ | Refill | [facility] | Rajwinder Monzon, | Medication Refill | | 2013 | | PULMONARY [address] | Cert [place] | ( wanted to know | | | | [place], | | refill history.) | | | | [place] [address] | | | | | | [phone] | | | +--------+--------+ + + + [...] her Advair infrequently since her return from [facility] and, and her Spiriva 50% of [...] [place] | | | | | | [id number] | | | | | | | | +--------+---------+ + + + | 11/24/ | Office | Cardiology | [place], | | | 2019 | Visit | | SINDHU Erickson [address] | | | | | | [place] | | | | | | [place] [address] | | | | | | [phone] | | | | | | | | +--------+---------+ + + + | 03/01/ | Office | Pulmonology | Mukul Clark MD | | | 2020 | Visit | | [address] | | | | | | [place] | | | | | | [address] | | | | | | | | +--------+---------+ + + + documented as of this encounter Visit Diagnoses Not on filedocumented in this encounter"
--- OUTSIDE RECORDS SUMMARY | ~2019-09-27 | XMS | Encounter Summary ---
Demographics + + + | Address | [address] | | | [place] [address] | + + + | Home Phone [...] Providers + +------+ + | Care Road Machine Operator Name | Role | Phone [...] [address] | | | | | [place], | [place], | | | | | [place] [address] | [place] [address] | | | | | [phone] | [phone] | | | | | | | [...] [place] | | | | | | [address] | | | | | | | | +--------+---------+ + + + | 11/24/ | Office | Cardiology | [place], | | | 2019 | Visit | | SINDHU Erikcson [address] | | | | | | [place] | | | | | | [place] [address] | | | | | | [phone] | | | | | | | | +--------+---------+ + + + | 03/01/ | Office | Pulmonology | Mukul Clark MD | | | 2020 | Visit | | [address] | | | | | | [place] | | | | | | [address] | | | | | | | | +--------+---------+ + + + documented as of this encounter Procedures + +--------+ + + + | Procedure Name | Priori | Date/Time | Associated Diagnosis | Comments | | | ty | | | | + +--------+ + + + | EXTERNAL LAB: BUN | Routin | 09/29/2018 | | Results [...]
--- OUTSIDE RECORDS SUMMARY | ~2019-09-27 | XMS | Encounter Summary ---
Demographics + + + | Address | [address] | | | [place] [address] | + + + | Home Phone [...] Providers + +------+ + | Care Clinical Trial Manager Name | Role | Phone | [...] [place] | | | | | [address] | [place] [address] | | | | | [phone] | [phone] | | | | | | | [...] [place] | | | | | | [address] | | | | | | | | +--------+---------+ + + + | 11/24/ | Office | Cardiology | [place], | | | 2019 | Visit | | SINDHU Erickson [address] | | | | | | [place], | | | | | | [place] [address] | | | | | | [phone] | | | | | | | | +--------+---------+ + + + | 03/01/ | Office | Pulmonology | Mukul Clark MD | | | 2020 | Visit | | [address] | | | | | | [place] | | | | | | [address] | | | | | | | | +--------+---------+ + + + documented as of this encounter Visit Diagnoses Not on filedocumented in this encounter"
--- OUTSIDE RECORDS SUMMARY | ~2019-09-27 | XMS | Encounter Summary ---
Demographics + + + | Address | [address] | | | [place] [address] | + + + | Home Phone [...] Team Providers + +------+ + | Care Cistern Room Working Supervisor Name | Role | Phone | [...] | esophagitis | [address] | [place] | | | | | presence not | [place], [place] | [place], | | | | | specified | [address] | [place] [address] | | | | | Procedures | Phone: | Phone: | | | | | [place] Gastric | [phone] | [phone] | | | | | Emptying | Fax: | Fax: | | | | | | [phone] | [phone] | +--------+--------+ + + + + Encounter Details +--------+ + + + + | Date | Type | Department | Care Team | Description | +--------+ + + + + | 04/02/ | Hospital | [facility] | Dio Yun | | | 2017 | Encounter | MED CTR NUCLEAR | MD [address] | | | | | MEDICINE [address] | [place] OLMEDO [address] | | | | | [place], | [place], [place] | | | | | [place] [address] | [address] | | | | | [phone] | [phone] | | | | | | | [...] | | | | | order to [facility]. | | | | | + [...] | 0 | 10/13/19 | | | Dzujlhelhy-PVCN-Eldm | mouth as needed. | | | 16 | 7 | | -Cod [id number] MG | | | | | | [...] | | | | | | [place] [address] | | | | | | [phone] | | | | | | | | +--------+---------+ + + + | 03/01/ | Office | Pulmonology | Mukul Clark MD | | | 2020 | Visit | | [address] | | | | | | [place] | | | | | | [address] | | | | | | | [...] Mcbride Results In - 04/02/2016 11:38 AM [facility] NUCLEAR GASTRIC EMPTYING STUDY 04/02/2016 | [...]
--- OUTSIDE RECORDS SUMMARY | ~2019-09-27 | XMS | Encounter Summary ---
Demographics + + + | Address | [address] | | | [place] [address] | + + + | Home Phone [...] Team Providers + +------+ + | Care Administrator Of Home Health Name | Role | Phone | + +------+ + | Juan Cherry DO | PCP | | + +------+ + Encounter Details +--------+ + + + + | Date | Type | Department | Care Team | Description | +--------+ + + + + | 02/27/ | Hospital | [facility] | Mukul Clark MD | Pulmonary emphysema, | | 2017 | Encounter | MED CTR PULMONARY | [address] | unspecified | | | | FUNCTION [address] | [address] [place] | emphysema type (HCC) | | | | [place], | [address] | | | | | [place] [address] | | | | | | [phone] | | | +--------+ + + + [...] | | | | | ([facility]) | | | | | | [...] | 0 | 10/13/19 | | | Naxqkhosil-LFJP-Bwqv | mouth as needed. | | | 16 | 7 | | -Cod [id number] MG | | | | | | [...] | | | | | ([facility]) | | | | | | [...] signed by: Kevin Sandoval MD 02/29/2016 6:30 [facility] Sandoval MD at [...] [place] | | | | | | [address] | | | | | | | | +--------+---------+ + + + | 11/24/ | Office | Cardiology | [place], | | | 2019 | Visit | | SINDHU Erickson [address] | | | | | | [place] | | | | | | [place] [address] | | | | | | [phone] | | | | | | | | +--------+---------+ + + + | 03/01/ | Office | Pulmonology | Mukul Clark MD | | | 2020 | Visit | | [address] | | | | | | [place] | | | | | | [address] | | | | | | | [...] Sandoval MD 02/29/2016 6:30 | | |[facility] | | + + + documented [...]
--- OUTSIDE RECORDS SUMMARY | ~2019-09-27 | XMS | Encounter Summary ---
Demographics + + + | Address | [address] | | | [place] [address] | + + + | Home Phone [...] Providers + +------+ + | Care Fisher Pot Name | Role | Phone | + [...] | | | | CENTER [address] | [address] [place] | carried out due to | | | | [place] | [place] [address] | patient leaving | | | | [address] | [phone] | prior to being seen | | | | [phone] | | by health care | | [...] | | | | | order to [facility]. | | | | | + [...] PDTOnly needed Holter Monitor removed, sent to [facility], not being seen in ED documented [...] | | | | | | [place] [address] | | | | | | [phone] | | | | | | | | +--------+---------+ + + + | 03/01/ | Office | Pulmonology | Mukul Clark MD | | | 2020 | Visit | | [address] | | | | | | [address] [place] | | | | | | [address] | | | | | | | [...] W?MRN: | | | | | | [id number] | | | [id number] | | | his | | | [...]
--- OUTSIDE RECORDS SUMMARY | ~2019-09-27 | XMS | Encounter Summary ---
Demographics + + + | Address | [address] | | | [place] [address] | + + + | Home Phone [...] Providers + +------+ + | Care Regional Director Of Finance Name | Role | Phone | [...] | RN | | | | | [place], | | | | | | [place] [address] | | | | | | [phone] | | | +--------+ + + + [...] be denied. elephone Gisele andino - Marilyn Osbrone RN - 04/20/2012 9:38 AM PSTGretchen called stating that she recei castillo another letter from [facility] saying that the insurance may not pay [...] 2019 | Visit | | [address] [facility] | | | | | | [place] | | | | | | [address] | | | | | | | | +--------+---------+ + + + | 11/24/ | Office | Cardiology | [place], | | | 2019 | Visit | | SINDHU Erickson [address] | | | | | | [place], | | | | | | [place] [address] | | | | | | [phone] | | | | | | | [...]
--- OUTSIDE RECORDS SUMMARY | ~2019-09-27 | XMS | Encounter Summary ---
Demographics + + + | Address | [address] | | | [place] [address] | + + + | Home Phone [...] Providers + +------+ + | Care Customer Service Technician Name | Role | Phone | + +------+ + | Juan Cherry DO | PCP | | + +------+ + Encounter Details +--------+ + + + + | Date | Type | Department | Care Team | Description | +--------+ + + + + | 09/09/ | Hospital | [facility] | Conversion | Pain | | 2015 | Encounter | CONVERSION [address] | Transaction, | | | | | [address] | Provider Unknown | | | | | [place], [place] | [phone] | | | | | [address] | | | | | | [phone] | | | +--------+ + + + [...] | | | send order to [facility] | | | | | | | [facility]. | | | | | [...] [place] | | | | | | [address] | | | | | | | | +--------+---------+ + + + | 11/24/ | Office | Cardiology | [place], | | | 2019 | Visit | | SINDHU Erickson [address] | | | | | | [place] | | | | | | [place] [address] | | | | | | [phone] | | | | | | | | +--------+---------+ + + + | 03/01/ | Office | Pulmonology | Mukul Clark MD | | | 2020 | Visit | | [address] | | | | | | [place] | | | | | | [address] | | | | | | | [...]
--- OUTSIDE RECORDS SUMMARY | ~2019-09-27 | XMS | Encounter Summary ---
Demographics + + + | Address | [address] | | | [place] [address] | + + + | Home Phone [...] Team Providers + +------+ + | Care Engineering Coordinator Name | Role | Phone | + +------+ + | Juan Cherry DO | PCP | | + +------+ + Encounter Details +--------+ + + + + | Date | Type | Department | Care Team | Description | +--------+ + + + + | 04/12/ | Hospital | [facility] | Ozzie Hayes | | | 2013 | Encounter | MED CTR EMERGENCY | MD Ran [address] | | | | | [place] [address] | [address] [place] | | | | | [place], [place] | [place] [address] | | | | | [address] | [phone] | | | | | [phone] | | | +--------+ + + + [...] | | | | send order to [facility] | | | | [...] encounter ED Notes Ozzie Hayes MD - 04/12/2013 2:11 [place] [address] Patient Name: JADYN SCHMITZ Provider: Unit #: [id number] Location: : 1965 DATE: 04/12/2013 TIME OF EXAM: 0047 REASON FOR PRESENTATION: Chest wall pain after injury with some difficulty breathing. HISTORY OF PRESENT ILLNESS: The patient is a 48-year-old female who injured her chest abou t a week ago. Notes some central chest wall pain at that site. Since that time it has becom e more. She currently rates it as severe. It is worsened with breathing and moving her ches t. No re-injuries or traumas. She does have a history of COPD and was a previous smoker. Sh drew has not been febrile, has not had cough, sputum production. She has no chest pain other t payne the chest wall pain. No extremity swelling, tenderness, or edema. No abdomen pain. No v omiting, diarrhea. No dysuria, hematuria, flank pain. No skin rashes, lesions, or other com plaints. PAST MEDICAL HISTORY: Significant for COPD, fibromyalgia, osteoarthritis. FAMILY HISTORY: Noncontributory. SOCIAL HISTORY: Denies current use of alcohol, drugs or tobacco. MEDICATIONS 1. Albuterol. 2. Tylenol. 3. Cipro. 4. Cymbalta. 5. Advair. 6. Gabapentin. 7. DuoNeb. 8. Levothyroxine. 9. Multivitamin. 10. Omeprazole. 11. Oxycodone. 12. Acetaminophen. 13. Prednisone. 14. Rizatriptan. 15. Spiriva. 16. Tramadol. 17. Geodon. ALLERGIES 1. ERYTHROMYCIN. 2. SOME NSAIDS. 3. MEPERIDINE. 4. ONION. REVIEW OF SYSTEMS: As noted in HPI, otherwise negative. PHYSICAL EXAMINATION VITAL SIGNS: Blood pressure 105/39, heart rate 98, respiratory rate 16, temperature 96.9, oxygen saturation initially 90% on room air. This improved to 93% after DuoNeb and pain con trol. HEENT: Normocephalic. Oropharynx moist and patent. Trachea midline, voice normal. Breathin g comfortably, speaking in complete sentences. HEART: Regular rate. No murmurs, gallops, or rubs. LUNGS: Clear, symmetrical, good air movement to the bases bilaterally. She does have repro ducible central chest wall tenderness. ABDOMEN: No abdomen tenderness. No rebound, guarding, or masses. No CVA tenderness. SKIN: Intact without rashes or lesions. EXTREMITIES: Lower extremities not swollen, tender, or edematous. NEUROLOGIC: The patient is alert, oriented, appropriate, ambulatory in the emergency depar tment without difficulty. Normal balance and gait. EMERGENCY DEPARTMENT COURSE: Portable chest x-ray shows no acute abnormalities, no pneumot horax, normal mediastinum, normal cardiac shadow, normal chest x-ray. The patient received DuoNeb and ketorolac in the emergency department. She reports relief of her pain, as well a s her symptoms of difficulty breathing. She believes this is likely secondary to discomfort causing her to take shallow breaths. She is in much improved condition, has no evidence fo r life-threatening pathology. Her symptoms are not consistent with coronary disease. Outpat ient treatment is indicated given that she tolerated ketorolac well here in the emergency d epartment. She was given a prescription for continued use as an outpatient. Follow up with her L and I provider and return here with new or worsening symptoms. DIAGNOSES 1. CHEST WALL STRAIN. 2. DYSPNEA, RESOLVED. PLAN: As above. DICTATED BY: Ozzie Hayes MD Emergency Medicine JOB #: [id number] EXT JOB #:[id number] <<Signature on File>> Ozzie Hayes MD04/12/13 2156 < documented in this encounter Plan of [...] | | | | | | [place] [address] | | | | | | [phone] | | | | | | | | +--------+---------+ + + + | 03/01/ | Office | Pulmonology | Mukul Clark MD | | | 2020 | Visit | | [address] | | | | | | [place] [address] [place] | | | | | | [address] | | | | | | | [...] [facility] | [place] | | Department [address] [facility] [place] [facility] | | [ rep ct street[address]] [ rep [facility] | | st zip] Signed | - IMAGING | | | | | Patient Name: JADYN SCHMITZ | | | Physician: CHEVY : 1965 Age: 48 Sex: F Unit | | | #: [id number] Exam Date: 04/12/13 Location: | | | ER Report #: [id number] Page: | | | %(RAD)RES..mtdd.print.filter("pg") of %(RAD) | | | RES..mtdd.print.filter("tpg") | | | | | | Accession Number: [id number] | | | PORTABLE CHEST CLINICAL HISTORY: [...] Transcribed | | | Date/Time: 04/12/2013 08:42 Mail Handler Assistant: | | | <<Signature on File>> | | | | | | Cesar Ren MD04/12/13 0957 <Electronically signed by | | | Cesar Ren MD> Cesar Ren MD 04/12/13 | | | 0732 Mail Handler Assistant: Contractually [id number]/17/14 0842 | | | Ozzie Hayes MD | | + + + + + + + + | Performing | Address | City/State/Zipcode | Phone Number | | Organization | | | | + + + + + | [address] | [address] | [place] | [phone] | | [facility] | | [address] | | | - IMAGING | | | | + + + + + documented in this encounter Visit Diagnoses Not on filedocumented in this encounter
--- OUTSIDE RECORDS SUMMARY | ~2019-09-27 | XMS | Encounter Summary ---
Demographics + + + | Address | [address] | | | [place] [address] | + + + | Home Phone [...] Providers + +------+ + | Care Aircraft Electronics Technical Officer Name | Role | Phone | [...] + + | 05/01/ | Telephone | [facility] | Lencho Goss MD | Other | | 2015 | | GASTROENTEROLOGY | [address], [address] | | | | | [address] [place] [address] | [address] [place] | | | | | [address] [place], [place] | [address] | | | | | [address] | | | | | | [phone] | | | +--------+ + + + [...] he did not. Recommended she go to [facility] for evaluation and explained we typically refer to Dr. Davin Crocker at [facility] for antonia cases, but she should check [...] [place] | | | | | | [address] | | | | | | | | +--------+---------+ + + + | 11/24/ | Office | Cardiology | [place], | | | 2019 | Visit | | SINDHU Erickson [address] | | | | | | [place], | | | | | | [place] [address] | | | | | | [phone] | | | | | | | | +--------+---------+ + + + | 03/01/ | Office | Pulmonology | Mukul Clark MD | | | 2020 | Visit | | [address] | | | | | | [place] | | | | | | [address] | | | | | | | | +--------+---------+ + + + documented as of this encounter Visit Diagnoses Not on filedocumented in this encounter"
--- OUTSIDE RECORDS SUMMARY | ~2019-09-27 | XMS | Encounter Summary ---
Demographics + + + | Address | [address] | | | [place] [address] | + + + | Home Phone [...] Providers + +------+ + | Care Security Risk Analyst Name | Role | Phone | + +------+ + | Juan Cherry DO | PCP | | + +------+ + Encounter Details +--------+ + + + + | Date | Type | Department | Care Team | Description | +--------+ + + + + | 02/26/ | Hospital | [facility] | Dio Yun | Dysphagia, | | 2017 | Encounter | MED CTR XRAY [address] | MD [address] | unspecified type | | | | [place] | [address] | | | | | [place] [address] | [place], [place] | | | | | [phone] | [address] | | | | | | [phone] | | | | | | | [...] | ([facility]) | | | | | | [...] | 0 | 10/13/19 | | | Bqstqjrjfj-HQNO-Mjlg | mouth as needed. | | | 16 | 7 | | -Cod [id number] MG | | | | | | [...] | ([facility]) | | | | | | [...] [place] | | | | | | [address] | | | | | | | | +--------+---------+ + + + | 11/24/ | Office | Cardiology | [place], | | | 2019 | Visit | | SINDHU Erickson [address] | | | | | | [place], | | | | | | [place] [address] | | | | | | [phone] | | | | | | | | +--------+---------+ + + + | 03/01/ | Office | Pulmonology | Mukul Clark MD | | | 2020 | Visit | | [address] | | | | | | [place] | | | | | | [phone] | | | | | | | [...] + + documented in this encounter Results [place] [facility] (02/27/2016 8:46 AM PST) + + [...]
--- OUTSIDE RECORDS SUMMARY | ~2019-09-27 | XMS | Encounter Summary ---
Demographics + + + | Address | [address] | | | [place] [address] | + + + | Home Phone [...] Providers + +------+ + | Care Oil Processing Technician Name | Role | Phone | [...] | | | | Rehabilitatio | | [place] [address] | | | | n | | [address] | [place], | | | | | | [place], | [place] [address] | | | | | | [place] | Phone: | | | | | | [address] | [phone] | | | | | | Phone: | Fax: | | | | | | [phone] | [phone] | | | | | | Fax: | | | | | | | [phone] | | +--------+--------+ + + + + Encounter Details +--------+---------+ + + + | Date | Type | Department | Care Team | Description | +--------+---------+ + + + | 03/28/ | Office | [facility] [place] | Aaron Santoyo, | Concussion with | | 2016 | Visit | PHYSIATRY [address] | [address] | brief loss of | | | | [address] | [place], [place] | consciousness | | | | [place] | [address] | (Primary Dx); | | | | [address] | | Post-concussion | | | | [phone] | | headache; Word | | | [...] MD - 03/28/2016 11:41 AM PST [facility] PHYSIATRY [address] [place] [address] OFFICE NOTE AARON SANTOYO JR, MD Patient: JADYN SCHMITZ Admitting: MR #: [id number] LOC: PT TYPE: Adm Date: 03/28/2016 : [...] attacks. CURRENT MEDICATIONS: Albuterol inhaler. DuoNeb nebulized. Owlrccvktg-Idkxmmh-zdhncnnn-codeine as needed for headache. Advair inhaler. Gabapentin 800 mg 3 times per day. 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 2. Postconcussion [...] Transcribed on 03/28/2016 12:22:07 by drew job# [id number] Confirmation #: [id number] cc: YONG AMANDA DO ar, Aaron Kim MD - 03/28/2016 11:21 AM PSTThis office note has been dictated. Report Confirmation# [id number] signed by Aaron Santoyo MD at 03/28/2016 [...] | | | | | | [place] [address] | | | | | | [phone] | | | | | | | | +--------+---------+ + + + | 03/01/ | Office | Pulmonology | Mukul Clark MD | | | 2020 | Visit | | [address] | | | | | | [place] | | | | | | [phone] | | | | | | | [...]
--- OUTSIDE RECORDS SUMMARY | ~2019-09-27 | XMS | Encounter Summary ---
Demographics + + + | Address | [address] | | | [place] [address] | + + + | Home Phone [...] Providers + +------+ + | Care Machine Strap Buckler Name | Role | Phone | + +------+ + | Juan Cherry DO | PCP | | + +------+ + Reason for Visit +---------+--------+ + | Reason | Onset | Comments | | | Date | | +---------+--------+ + | Results | 11/11/ | | | | 2013 | | +---------+--------+ + Encounter Details +--------+ + + + + | Date | Type | Department | Care Team | Description | +--------+ + + + + | 11/11/ | Telephone | [facility] | Shashi Segovia | Results | | 2013 | | NEUROLOGY ADRIANA Witt MD Need updated | | | | | [address] [facility], | address | | | | | [place] [address] [address] | | | | | | [place] [address] | | | | | | [phone] | | | +--------+ + + + [...] this encounter Miscellaneous Notes Telephone Encounter - Karolina Posada RN - 11/11/2013 12:01 PM PDTPt called earlier and want ed to know results of recent lab work. Reviewed results per MD notes "Ms. Malik, Your pituitary function labs are essentially normal. Your IGF-1 level was mildly elevated, which is something we can track over time. I would like to compare this level with one from [facility]. We will work on trying to get some of these records" F/u appt scheduled for 11/21/13. Pt verbalized understanding. documented in this enco unter Plan of Treatment +--------+---------+ + + + | Date | Type | Specialty | Care Team | Description | +--------+---------+ + + + | 09/27/ | Office | Sleep Medicine | Meghan Garcia MD | | | 2019 | Visit | | [address] [facility] | | | | | | [place] | | | | | | [address] | | | | | | | | +--------+---------+ + + + | 11/24/ | Office | Cardiology | [place], | | | 2019 | Visit | | SINDHU Erickson [address] | | | | | | [place], | | | | | | [place] [address] | | | | | | [phone] | | | | | | | | +--------+---------+ + + + | 03/01/ | Office | Pulmonology | Mukul Clark MD | | | 2020 | Visit | | [address] | | | | | | [place] | | | | | | [phone] | | | | | | | | +--------+---------+ + + + documented as of this encounter Visit Diagnoses Not on filedocumented in this encounter
--- OUTSIDE RECORDS SUMMARY | ~2019-09-27 | XMS | Encounter Summary ---
Demographics + + + | Address | [address] | | | [place] [address] | + + + | Home Phone [...] Providers + +------+ + | Care Pulp Maker Name | Role | Phone | [...] | Concussion | Aaron Kim MD | Packing And Shipping Clerk [address] | | | Required | | with brief | [address] | [place] | | | | | loss of | [address] | [place], [place] | | | | | consciousnes | [place], | [address] | | | | | s Word | [place] [address] | Phone: | | | | | finding | Phone: | [phone] | | | | | difficulty | [phone] | Fax: | | | | | [id number] | Fax: | [phone] | | | | | (ICD-10-CM) | [phone] | | | | | | - [...] + + | 08/21/ | Hospital | [facility] | Aaron Rodriguez, | Impaired memory | | 2017 | Encounter | MED CTR SPEECH | MD [address] | (Primary Dx); Word | | | | THERAPY [address] | [place] | finding difficulty | | | | [address] [place], | [address] | | | | | [place] [address] | | | | | | [phone] | Kathi Soto, | | | | [...] | 0 | 10/13/19 | | | Fvhcsupbfv-SHIL-Rqlu | mouth as needed. | | | 16 | 7 | | -Cod 83-061-29-30 MG | | | | | | [...] Speech Pathologist - 08/21/2016 2:14 PM PDT [facility] SPEECH THERAPY [address] [place] [address] Speech Therapy Daily Treatment Note Date: 08/21/2016 Patient Information Patient Name: Rosario Malik Date of : 1965 Age: 51 y.o. Encounter Diagnoses Code Name Primary? R41.3 Impaired memory Yes R47.89 Word finding difficulty Date of Onset: 03/15/2016 Referring Provider: Aaron Rodriguez MD Rehab Precautions Flowsheet Row Office Visit from 05/01/2016 in [facility] CTR THERAPY PT OP Rehab Precautions Precautions None Rehab Learning Style Flowsheet Row [facility] BIOMETRIC SCREENER OP EVAL from 05/16/2016 in [facility] SPEECH THERAPY O ffice Visit from 05/01/2016 in [facility] CTR THERAPY PT OP Learning [...] for delayed memory tasks, still needs encoura gement to complete HEP and participate in positive [...] [place] | | | | | | [place] [address] | | | | | | [phone] | | | | | | | | +--------+---------+ + + + | 03/01/ | Office | Pulmonology | Mukul Clark MD | | | 2020 | Visit | | [address] | | | | | | [place] | | | | | | [address] | | | | | | | [...]
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
--- OUTSIDE RECORDS SUMMARY | ~2019-09-27 | XMS | Encounter Summary ---
Demographics + + + | Address | [address] | | | [place] [address] | + + + | Home Phone [...] Providers + +------+ + | Care Information Services Vice President Name | Role | Phone [...] | Pulmonary | MD Mukul | [address] | | | | | nodule | [address] | [place], | | | | | Procedures | [address] | [place] [address] | | | | | CT Chest wo | [place] [address] | Phone: | | | | | Contrast | [place] | [phone] | | | | | | [address] | Fax: | | | | | | Phone: | [phone] | | | | | | [phone] | | | | | | | Fax: | | | | | | | [phone] | | +--------+--------+ + + + + Reason for Visit Diagnostic/Screening (Routine) +--------+--------+ + + + + | Status | Reason | Specialty | Diagnoses / | Referred By | Referred To | | | | | Procedures | Contact | Contact | +--------+--------+ + + + + | Closed | | Radiology | Diagnoses | [place], | [address] | | | | | Pulmonary | MD Mukul | [address] | | | | | nodule | [address] | [place], | | | | | Procedures | [address] | [place] [address] | | | | | CT Chest wo | [address] | Phone: | | | | | Contrast | [place], [place] | [phone] | | | | | | [address] | Fax: | | | | | | Phone: | [phone] | | | | | | [phone] | | | | | | | Fax: | | | | | | | [phone] | | +--------+--------+ + + + + Encounter Details +--------+ + + + + | Date | Type | Department | Care Team | Description | +--------+ + + + + | 08/05/ | Hospital | [facility] | Mukul Clark MD | Pulmonary nodule | | 2018 | Encounter | MED CTR [address] | [address] | | | | | [address] [place], | [place], [place] | | | | | [place] [address] | [address] | | | | | [phone] | | | +--------+ + + + [...] | | | | | | | [facility]. | | | | [...] [place] | | | | | | [address] | | | | | | | | +--------+---------+ + + + | 11/24/ | Office | Cardiology | [place], | | | 2019 | Visit | | SINDHU Erickson [address] | | | | | | [place], | | | | | | [place] [address] | | | | | | [phone] | | | | | | | | +--------+---------+ + + + | 03/01/ | Office | Pulmonology | Mukul Clark MD | | | 2020 | Visit | | [address] | | | | | | [place] | | | | | | [address] | | | | | | | [...] + + | Performing | Address | City/State[facility] | Phone Number | | Organization | | | | + +---------+ + + | [facility] | | | | + +---------+ + + documented in this encounter Visit Diagnoses + + | Diagnosis | + + | Pulmonary nodule Solitary pulmonary nodule | + + documented in this encounter"
--- OUTSIDE RECORDS SUMMARY | ~2019-09-27 | XMS | Encounter Summary ---
Demographics + + + | Address | [address] | | | [place] [address] | + + + | Home Phone [...] Team Providers + +------+ + | Care Flame Brazing Machine Operator Name | Role | Phone | + +------+ + PCP | Unavailable | + +------+ + Encounter Details +--------+ + + + + | Date | Type | Department | Care Team | Description | +--------+ + + + + | 10/15/ | Hospital | [facility] | Berna Vizcaino MD | Dizziness; | | 2010 | Encounter | CONVERSION DEP [address] | [address] | [place]; | | | | [address] | [place] [address] | Diplopia | | | | [place], [place] | [phone] | | | | | [address] | | | | | | [phone] | | | +--------+ + + + [...] | | | | | | [place] [address] | | | | | | [phone] | | | | | | | | +--------+---------+ + + + | 03/01/ | Office | Pulmonology | Mukul Clark MD | | | 2020 | Visit | | [address] | | | | | | [place] | | | | | | [address] | | | | | | | [...] EXTERNAL LAB | | Testing performed at [facility];[address] [facility];[place] [address] APPEARANCE | | | CLEAR Testing performed at | | | [facility];[address] [facility];[place] [address] Tube Number, CSF | | | 1 Testing performed at [facility];[address] [facility] | | | Bl;[place] [address] CSF RBC | | | 0 Testing performed at [facility];[address] [place] [address];[place], [place] | | | [address] CSF WBC 0 | | | Testing performed at [facility];[address] [place] [address];[place] [address] | | + + + + +---------+ [...] Performed At | + + + | [facility] [address] Ph: | | | Patient Name: JADYN SCHMITZ Date of : | | | 1965 Medical Record: [id number] Account: [id number] | | | Exam Date/Time: 10/15/2010 10:15 [...] this patient in the | | | [employer] holding room. The patient was awake, alert, [...] - 10/17/2018 5:21 PM PDT | | [facility] | | [facility] [address] | | | | | | Patient Name: JADYN SCHMITZ | | Date of : 1965 | | Medical Record: [id number] | | Account: [id number] | | | | | | Exam [...] | I met this patient in the [employer] holding room. The patient was awake, | [...] EXTERNAL LAB | | Testing performed at [facility];[address] [place] [address];[place] [address] VIRAL | | | CULTURE ACCESSION NO. | | | [id number] SPECIMEN SOURCE | | | CEREBROSPINAL FLUID RESULT | | | PRELIMINARY: NO VIRUS ISOLATED AT 7 | | | DAYS. | | | FINAL: NO VIRUS ISOLATED AT 14 DAYS. Testing performed at | | | [address] [address] VIRAL CULTURE,STATUS | | | REPORT STATUS FINAL | | | 10/30/2010 Testing performed at [facility], [address] [place] [address] | | | [address] | | + + + + +---------+ [...] | Testing performed at | | | [facility];[address] [facility];[place] [address] GRAM STAIN | | | NO CELLS OR ORGANISMS SEEN | | | Testing performed at [facility], [address] [place] [address] | | | [place] [address] CULTURE | | | NO GROWTH 3 DAYS | | | Testing performed at [facility], [address] [place], [place] [address], | | | [place] [address] REPORT STATUS 10/18/2010 | | | FINAL [...] | EXTERNAL LAB | | performed at [facility];[address] [facility];[place] [address] | | + + + + +---------+ [...] EXTERNAL LAB | | Testing performed at [facility];[address] [facility];[place] [address] | | + + + + +---------+ [...]
--- OUTSIDE RECORDS SUMMARY | ~2019-09-27 | XMS | Encounter Summary ---
Demographics + + + | Address | [address] | | | [place] [address] | + + + | Home Phone [...] Team Providers + +------+ + | Care News Clipping Cutter Name | Role | Phone | + +------+ + | Juan Cherry DO | PCP | | + +------+ + Reason for Visit +--------+--------+ + | Reason | Onset | Comments | | | Date | | +--------+--------+ + | Other | 07/28/ | shortness of breath | | | 2015 | | +--------+--------+ + Encounter Details +--------+ + + + + | Date | Type | Department | Care Team | Description | +--------+ + + + + | 07/28/ | Telephone | [facility] | Kevin Sandoval, | Other (shortness of | | 2014 | | PULMONARY [address] | MD [address] | breath) | | | | [place], | [place] | | | | | [place] [address] | [address] | | | | | [phone] | | | +--------+ + + + [...] Telephone Encounter - Marilyn Osborne RN - 07/28/2014 11:19 AM Denisseetchen called statin g that for the past 2 weeks she's been more short of breath and last week Dr Cherry start ed her on a Prednisone taper. She is not better. Advised that Dr Sandoval is out today and s he should call Dr Cherry or go to Urgent Care. Okay per Rosario. documented in this encounter [...] [place] | | | | | | [address] | | | | | | | | +--------+---------+ + + + | 11/24/ | Office | Cardiology | [place], | | | 2019 | Visit | | SINDHU Erickson [address] | | | | | | [place], | | | | | | [place] [address] | | | | | | [phone] | | | | | | | | +--------+---------+ + + + | 03/01/ | Office | Pulmonology | Mukul Clark MD | | | 2020 | Visit | | [address] | | | | | | [place] | | | | | | [address] | | | | | | | | +--------+---------+ + + + documented as of this encounter Visit Diagnoses Not on filedocumented in this encounter"
--- OUTSIDE RECORDS SUMMARY | ~2019-09-27 | XMS | Encounter Summary ---
Demographics + + + | Address | [address] | | | [place] [address] | + + + | Home Phone [...] Team Providers + +------+ + | Care Mountain Guide Name | Role | Phone | + +------+ + PCP | Unavailable | + +------+ + Encounter Details +--------+ + + + + | Date | Type | Department | Care Team | Description | +--------+ + + + + | 10/06/ | [facility] | [facility] | | | | 2008 | Encounter | MED CTR LABORATORY | | | | | | [address] | | | | | | [place] | | | | | | [address] | | | | | | [phone] | | | +--------+ + + + [...] | | | | | | [place] [address] | | | | | | [phone] | | | | | | | | +--------+---------+ + + + | 03/01/ | Office | Pulmonology | Mukul Clark MD | | | 2020 | Visit | | [address] | | | | | | [place] | | | | | | [address] | | | | | | | | +--------+---------+ + + + documented as of this encounter Visit Diagnoses Not on filedocumented in this encounter"
--- OUTSIDE RECORDS SUMMARY | ~2019-09-27 | XMS | Encounter Summary ---
Demographics + + + | Address | [address] | | | [place] [address] | + + + | Home Phone [...] Providers + +------+ + | Care Information Assurance Name | Role | Phone | + +------+ + | Juan Cheryr DO | PCP | | + +------+ + Encounter Details +--------+ + + + + | Date | Type | Department | Care Team | Description | +--------+ + + + + | 07/15/ | Hospital | [facility] | Kevin Sandoval, | COPD (chronic | | 2014 | Encounter | MED CTR PULMONARY | MD [address] | obstructive | | | | FUNCTION [address] | [place] | pulmonary disease); | | | | [place], | [address] | Hypoxemia | | | | [place] [address] | | | | | | [phone] | | | +--------+ + + + [...] | | | | | | | [facility]. | | | | [...] [place] | | | | | | [address] | | | | | | | | +--------+---------+ + + + | 11/24/ | Office | Cardiology | [place], | | | 2019 | Visit | | SINDHU Erickson [address] | | | | | | [place], | | | | | | [place] [address] | | | | | | [phone] | | | | | | | | +--------+---------+ + + + | 03/01/ | Office | Pulmonology | Mukul Clark MD | | | 2020 | Visit | | [address] | | | | | | [place] | | | | | | [address] | | | | | | | [...]
--- OUTSIDE RECORDS SUMMARY | ~2019-09-27 | XMS | Encounter Summary ---
Demographics + + + | Address | [address] | | | [place] [address] | + + + | Home Phone [...] Team Providers + +------+ + | Care Chair Trimmer Name | Role | Phone | + +------+ + PCP | Unavailable | + +------+ + Encounter Details +--------+ + + + + | Date | Type | Department | Care Team | Description | +--------+ + + + + | 05/11/ | Hospital | [facility] | Soco Vizcaino MD | Special screening | | 2010 | Encounter | CONVERSION DEP [address] | [address] | for osteoporosis | | | | [address] | [place] [address] | | | | | [place], [place] | [phone] | | | | | [address] | | | | | | [phone] | | | +--------+ + + + [...] [place] | | | | | | [address] | | | | | | | | +--------+---------+ + + + | 11/24/ | Office | Cardiology | [place], | | | 2019 | Visit | | SINDHU Erickson [address] | | | | | | [place] | | | | | | [place] [address] | | | | | | [phone] | | | | | | | | +--------+---------+ + + + | 03/01/ | Office | Pulmonology | Mukul Clark MD | | | 2020 | Visit | | [address] | | | | | | [place] | | | | | | [address] | | | | | | | [...] Results for this | | STUDY [employer]ETURAH [employer] | e | 11:56 AM | | procedure are in the | | ASSESSMENT | | PDT | | results section. | + +--------+ + + + documented in this encounter Results DEXA Bone Density wo Odalis Martínez (05/11/2010 11:56 AM PDT) + + | Specimen | + + | | + + + + + | Narrative | Performed At | + + + | [facility] [address] Ph: | | | Patient Name: JADYN SCHMITZ Date of : | | | 1965 Medical Record: [id number] Account: [id number] | | | Exam Date/Time: 05/11/2010 11:30 Ordering | | | Physician: SOCO Finley Detail: 155 Exam Description: | | [...] was scanned in the anterior projection and xfhsuq-or-qsxcyocg | | | values were drawn about the vertebral segments of L1 through L4 at | | | the levels where accurate assessment was possible. A bone mineral | | | analysis was also performed on the left hip with bhflvm-tl-ocrermay | | | areas including the femoral [...] + + | Reed, Rad Conversion - 10/17/2018 5:21 PM PDT | | [facility] | | [facility] [address] | | | | | | Patient Name: JADYN SCHMITZ | | Date of : 1965 | | Medical Record: [id number] | | Account: [id number] | | | | | | Exam Date/Time: 05/11/2010 11:30 | | Ordering Physician: SOCO VIZCAINO | | Order Detail: 155 | [...] | scanned in the anterior projection and uxonct-he-hhsnwlrq values were drawn | | about the vertebral segments of L1 through L4 at the levels where accurate | | assessment was possible. A bone mineral analysis was also performed on the | | left hip with wmifsc-ut-umgbqxcm areas including the femoral neck measured. | [...]
--- OUTSIDE RECORDS SUMMARY | ~2019-09-27 | XMS | Encounter Summary ---
Demographics + + + | Address | [address] | | | [place] [address] | + + + | Home Phone [...] Providers + +------+ + | Care Maintenance Technician 3Rd Shift Name | Role | Phone | + [...] | | PULMONARY [address] | Loreta lAonso MD | | | | | [place], | | | | | | [place] [address] | | | | | | [phone] | | | +--------+--------+ + + + [...] | | | | | | [place] [address] | | | | | | [phone] | | | | | | | | +--------+---------+ + + + | 03/01/ | Office | Pulmonology | Mukul Clark MD | | | 2020 | Visit | | [address] | | | | | | [place] | | | | | | [address] | | | | | | | | +--------+---------+ + + + documented as of this encounter Visit Diagnoses Not on filedocumented in this encounter"
--- OUTSIDE RECORDS SUMMARY | ~2019-09-27 | XMS | Encounter Summary ---
Demographics + + + | Address | [address] | | | [place] [address] | + + + | Home Phone [...] Team Providers + +------+ + | Care Heavy Duty Mechanic Farm Equipment Name | Role | Phone | [...] W | | | | | [place], | [place], | | | | | [place] [address] | [place] [address] | | | | | [phone] | [phone] | | | | | | | [...] [place] | | | | | | [address] | | | | | | | | +--------+---------+ + + + | 11/24/ | Office | Cardiology | [place], | | | 2019 | Visit | | SINDHU Erickson [address] | | | | | | [place] | | | | | | [place] [address] | | | | | | [phone] | | | | | | | [...]
--- OUTSIDE RECORDS SUMMARY | ~2019-09-27 | XMS | Encounter Summary ---
Demographics + + + | Address | [address] | | | [place] [address] | + + + | Home Phone [...] Team Providers + +------+ + | Care Boxing And Pressing Supervisor Name | Role | Phone | [...] sleep | MD [address] | | | | | apnea) | [address] | [place], | | | | | [place] | [place], | [place] [address] | | | | | sleep apnea | [place] [address] | Phone: | | | | | | | [phone] | | | | | | | Fax: | | | | | | | [phone] | +--------+ + + + + + Encounter Details +--------+---------+ + + + | Date | Type | Department | Care Team | Description | +--------+---------+ + + + | 04/07/ | Office | [facility] | Maxim Delgado PA | GARRY on CPAP (Primary | | 2012 | Visit | SLEEP DISORDER [address] | [address] | Dx); Organic | | | | [address] [place] | [place], [place] | insomnia, | | | | [place] [address] | [address] | unspecified | | | | [phone] | | | +--------+---------+ + + + [...] S9 with full face mask obtained from: [facility] pressure is: 8-12 cm 95%: [...] She went to get that mask from [facility], but it has been discontinued. The [...] months, sooner prn. Fifteen minutes were spent woai-nt-wrxs, wi th the majority of time spent in counseling. Maxim Delgado PA-C cc: Juan Cherry DO documented in this enco unter Miscellaneous Notes Miscellaneous - [facility] - 04/07/2012 12:00 AM PST documented in this encounter [...] [place] | | | | | | [address] | | | | | | | | +--------+---------+ + + + | 11/24/ | Office | Cardiology | [place], | | | 2019 | Visit | | SINDHU Erickson [address] | | | | | | [place], | | | | | | [place] [address] | | | | | | [phone] | | | | | | | | +--------+---------+ + + + | 03/01/ | Office | Pulmonology | Mukul Clark MD | | | 2020 | Visit | | [address] | | | | | | [place] | | | | | | [address] | | | | | | | | +--------+---------+ + + + documented as of this encounter Visit Diagnoses + + | Diagnosis | + + | GARRY on CPAP - Primary Obstructive sleep apnea (adult) (pediatric) | + + | Organic insomnia, unspecified | + + documented in this encounter"
--- OUTSIDE RECORDS SUMMARY | ~2019-09-27 | XMS | Encounter Summary ---
Demographics + + + | Address | [address] | | | [place] [address] | + + + | Home Phone [...] Providers + +------+ + | Care Manager Action Name | Role | Phone | + +------+ + PCP | Unavailable | + +------+ + Encounter Details +--------+ + + + + | Date | Type | Department | Care Team | Description | +--------+ + + + + | 10/19/ | [facility] | [facility] | | | | 2008 | Encounter | MED CTR LABORATORY | | | | | | [address] | | | | | | [place] | | | | | | [address] | | | | | | [phone] | | | +--------+ + + + [...] | | | | | | [place] [address] | | | | | | [phone] | | | | | | | | +--------+---------+ + + + | 03/01/ | Office | Pulmonology | Mukul Clark MD | | | 2020 | Visit | | [address] | | | | | | [place] | | | | | | [address] | | | | | | | | +--------+---------+ + + + documented as of this encounter Visit Diagnoses Not on filedocumented in this encounter"
--- OUTSIDE RECORDS SUMMARY | ~2019-09-27 | XMS | Encounter Summary ---
Demographics + + + | Address | [address] | | | [place] [address] | + + + | Home Phone [...] + +------+ + | Care Public Health Assistant Name | Role | Phone | + +------+ + | Ozzy Delcid MD | PCP | | + +------+ + Encounter Details +--------+ + + + + | Date | Type | Department | Care Team | Description | +--------+ + + + + | 07/03/ | Hospital | [facility] | Freddy Hill | | | 2011 | Encounter | MED CTR EMERGENCY | MD JAMARI [address] | | | | | CENTER [address] | [place] | | | | | [place], [place] | [place] [address] | | | | | [address] | [phone] | | | | | [phone] | | | +--------+ + + + [...] documented as of this encounter ED Notes Freddy Hill III, MD - 07/04/2011 9:43 PM PDTDATE: 07/04/2011 TIME SEEN: 2210. CHIEF COMPLAINT: A 46-year-old female who presents with acute exacerbation of asthma that she believ es started as a simple chest cold yesterday. 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 HISTORY OF PRESENT ILLNESS: As above, this patient felt that she came down with a chest col d yesterda y. She may have had a low-grade fever. She has a cough with some increased yello w sputum. 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 She decided to leave work and actually drove herself here to [facility] for treatment. PAST MEDICAL HISTORY: Asthma, which has also been called COPD. SOCIAL HISTORY: The patient denies alcohol and drug abuse. She has smoked 5 or more cigaret jimy per da y for the last 32 years. She did not smoke anything today. ALLERGIES 1. ERYTHROMYCIN (ANAPHYLAXIS). 2. MEPERIDINE HCL (ANXIETY). 3. NSAIDS (HIVES). CURRENT MEDICATIONS 1. Cabergoline 0.25 mg orally on Friday and Friday. 2. Duloxetine 60 mg. 3. Gabapentin 800 mg orally 3 times a day. 4. Hydrocodone/APAP 5/325 1-2 tablets as needed. 5. Levothyroxine 112 mcg oral daily. 6. Multivitamins 1 tablet oral daily. 7. Cascade-3 fish oil 1.2 grams daily. 8. Prochlorperazine 10 mg oral as needed for nausea (not currently taking.) 9. Rizatript an 10 mg oral p.r.n. headache. 10. Tramadol 50 mg 4 times a day p.r.n. pain. 11. Ziprasidone otherwise known as Geodon 80 mg oral twice daily. 12. Zolpidem tartrate 12 .5 mg oral at bedtime. 13. Advair b.i.d. 14. ProAir q.4h. p.r.n. 15. She does have home nebulizer with some albuterol but no Atrovent. REVIEW OF SYSTEMS HEENT: No recent sinus complaints, no significant allergic rhinitis symptoms. No earache. N o sore thr oat. RESPIRATORY: See HPI. CARDIOVASCULAR: No exertional chest pain, some increased exertional shortness of breath rel ated to as thma, however. ABDOMEN: No nausea or vomiting. EXTREMITIES: Without unilateral swelling, edema or new bilateral edema. PHYSICAL EXAMINATION GENERAL: This 46-year-old tiny female sitting upright, using accessory muscles of respirati on, hoping for a nebulizer treatment soon, which has already been ordered. VITAL SIGNS: Blood pressure 118/62, heart rate 96, respiratory rate 24, temperature 99.1 ty mpanic, O2 saturation 94% on room air. HEENT: Eyes normal. Nose normal. Ears normal. Nasopharynx clear. NECK: Supple without adenopathy. LUNGS: Remarkable for marked bilateral decreased air flow, almost no air asthma. When she d oes have a ir to there are diffuse bilateral expiratory wheezes and rhonchi. HEART: Borderline tachycardia, regular rhythm and rate without murmur, gallop or rub. ABDOMEN: Soft, nontender. EXTREMITIES: Without cyanosis or edema. NEUROLOGIC: Alert and oriented. Seems tired, otherwise no focal deficits. DIAGNOSTIC IMAGING: Portable chest one-view, shows no acute cardiopulmonary process. EMERGENCY ROOM COURSE: The patient was given a DuoNeb. Her peak flow eric from the range of 60 to abo ut 200. On repeat examination, she had significantly improved airflow at least b y threefold and decre ased rhonchi. There were still moderate diffuse expiratory rhonchi. A ccessory muscle use had resolved , however. She was given 1 more DuoNeb treatment before d ischarge with continued improvement. IV lo ck was started and she was given Solu-Medrol 12 5 IV. Home treatment was discussed, including holding onto a prescription for doxycycline a nd seeing how she did with respiratory treatment alone. DIAGNOSES ACUTE EXACERBATION OF ASTHMA. DIFFERENTIAL DIAGNOSIS: Rule out acute bacterial bronchitis versus viral bronchitis. PLAN: Prednisone 30 mg p.o. b.i.d. for 5 days. Use albuterol in nebulizer at home. New pres cription f or Atrovent to use with that albuterol was provided. I asked her to use the comb ination for at least 2 days or until better. She should follow up with Dr. Taylor if not bet ter in 4-5 days and sooner if w orse or return to the ER. DICTATED BY: Freddy Hill MD Emergency Medicine JOB #: [id number] EXT JOB #:[id number] EDITED: 07/05/2011 07:54 cc: Juan Cherry, <Electronically Signed by Freddy Hill MD> 07/07/11 1722 documented in this encounter Plan of Treatment [...] | | | | | | [place] [address] | | | | | | [phone] | | | | | | | | +--------+---------+ + + + | 03/01/ | Office | Pulmonology | Mukul Clark MD | | | 2020 | Visit | | [address] | | | | | | [place] | | | | | | [address] | | | | | | | [...] Performed At | + + + | [facility] Diagnostic Imaging Department | [place] | | [address] [facility] | [facility] | | PORTABLE CHEST CLINICAL [...] Transcribed Date/Time: 07/05/2011 | | | 10:46 Dosimetrist: <Electronically Signed by Cesar Singh | | | MD Mikal> 07/05/11 1343 | | + + + + + | Procedure Note | + + | Reed, Rad Conversion - 04/02/2013 5:18 PM [facility] | | Diagnostic Imaging Department [address] [place] [address] | | PORTABLE CHEST CLINICAL HISTORY: SHORTNESS [...] 10:29 | |Transcribed Date/Time: 07/05/2011 10:46 | |Dosimetrist: | |<Electronically Signed by Cesar Ren MD> [...]
--- OUTSIDE RECORDS SUMMARY | ~2019-09-27 | XMS | Encounter Summary ---
Demographics + + + | Address | [address] | | | [place] [address] | + + + | Home Phone [...] Providers + +------+ + | Care Electric Refrigerator Servicer Name | Role | Phone | [...] [place] | | | | | [address] | [place] [address] | | | | | [phone] | [phone] | | | | | | | [...] [place] | | | | | | [address] | | | | | | | | +--------+---------+ + + + | 11/24/ | Office | Cardiology | [place], | | | 2019 | Visit | | SINDHU Erickson [address] | | | | | | [place], | | | | | | [place] [address] | | | | | | [phone] | | | | | | | [...]
--- OUTSIDE RECORDS SUMMARY | ~2019-09-27 | XMS | Encounter Summary ---
Demographics + + + | Address | [address] | | | [place] [address] | + + + | Home Phone [...] Providers + +------+ + | Care Tobacco Educator Name | Role | Phone | [...] + + | 09/21/ | Telephone | [facility] | Kevin Sandoval, | Results (nocturnal | | 2013 | | PULMONARY [address] | MD [address] | oximetry) | | | | [place], | [place] | | | | | [place] [address] | [address] | | | | | [phone] | | | +--------+ + + + [...] weeks as Dr Aleyda das at the [facility] recommended it as well. documented in [...] [place] | | | | | | [address] | | | | | | | | +--------+---------+ + + + | 11/24/ | Office | Cardiology | [place], | | | 2019 | Visit | | SINDHU Erickson [address] | | | | | | [place], | | | | | | [place] [address] | | | | | | [phone] | | | | | | | [...]
--- OUTSIDE RECORDS SUMMARY | ~2019-09-27 | XMS | Encounter Summary ---
Demographics + + + | Address | [address] | | | [place] [address] | + + + | Home Phone [...] Providers + +------+ + | Care General Partner Name | Role | Phone | + [...] | apnea (adult) | | | | [place], | | (pediatric) (Primary | | | | [place] [address] | | Dx) | | | | [phone] | | | +--------+ + + + [...] [place] | | | | | | [address] | | | | | | | | +--------+---------+ + + + | 11/24/ | Office | Cardiology | [place], | | | 2019 | Visit | | SINDHU Erickson [address] | | | | | | [place], | | | | | | [place] [address] | | | | | | [phone] | | | | | | | | +--------+---------+ + + + | 03/01/ | Office | Pulmonology | Mukul Clark MD | | | 2020 | Visit | | [address] | | | | | | [place] | | | | | | [address] | | | | | | | | +--------+---------+ + + + documented as of this encounter Visit Diagnoses + + | Diagnosis | + + | Obstructive sleep apnea (adult) (pediatric) - Primary | + + documented in this encounter"
--- OUTSIDE RECORDS SUMMARY | ~2019-09-27 | XMS | Encounter Summary ---
Demographics + + + | Address | [address] | | | [place] [address] | + + + | Home Phone [...] Providers + +------+ + | Care Electrical Logging Operator Name | Role | Phone | [...] | | | | CLINIC [address] | [place] | Dx) | | | | [place] | [place] [address] | | | | | [address] | [phone] | | | | | [phone] | | | +--------+ + + + [...] [place] | | | | | | [address] | | | | | | | | +--------+---------+ + + + | 11/24/ | Office | Cardiology | [place], | | | 2019 | Visit | | SINDHU Erickson [address] | | | | | | [place] | | | | | | [place] [address] | | | | | | [phone] | | | | | | | | +--------+---------+ + + + | 03/01/ | Office | Pulmonology | Mukul Clark MD | | | 2020 | Visit | | [address] | | | | | | [place] | | | | | | [address] | | | | | | | [...] | | | | | g/dL | [place] | | | | | [...] [address] | [place] | [phone] | | [facility] | | [address] | | | - LABORATORY | | [...] + | [facility] | [address] | [place] | [phone] | | [facility] | | [address] | | | - LABORATORY | | | | + + + + + PTT (11/13/2015 9:38 AM PDT) + +-------+ + + + | Component | Value | Ref Range | Performed | Pathologist | | | | | At | Signature | + +-------+ + + + | aPTT | 29 | 22 - 36 seconds | [facility] | | | | | [...] [address] | [place] | [phone] | | [facility] | | [address] | | | - LABORATORY | | [...] | Time | | seconds | [facility] | | | | [...] + | [facility] | [address] | [place] | [phone] | | [facility] | | [address] | | | - LABORATORY | | [...] | non- | FILTRATION | mL/min/1.73m2 | [facility] | | | Bangladeshi | RATE,ESTIMATED | | MEDICAL | | | | mL/min/1.84j2Qigy than | | CENTER - | | [...] | | | | | mg/dL | [facility] | | | | | | MEDICAL | | | | | | CENTER - | | | | | | LABORATORY | | + + + + + + | BUN/Creatin | 14.3 | | [facility] | | | ine Ratio | | | [facility] | | | | | | [...] [address] | [place] | [phone] | | [facility] | | [address] | | | - LABORATORY | | | | + + + + + documented in this encounter Visit Diagnoses + + | Diagnosis | + + | Preoperative clearance - Primary Preoperative examination, unspecified | + + documented in this encounter"
--- OUTSIDE RECORDS SUMMARY | ~2019-09-27 | XMS | Encounter Summary ---
Demographics + + + | Address | [address] | | | [place] [address] | + + + | Home Phone [...] Providers + +------+ + | Care Global Director Air And Climate Change Name | Role | Phone | + [...] + | 06/25/ | Clinical | [facility] | Andriy Weber | Bladder pain | | 2018 | Support | [address] | MD [address] | (Primary Dx) | | | | [place] | [place] | | | | | [address] | [place] [address] | | | | | [phone] | [phone] | | | | | | | [...] encounter Progress Notes Loraine Hawkins RN - 06/25/2017 11:30 AM PDT Patient [...] protocol and Dr. Weber's order. Patient kalin ined in the office for 20 minutes prior [...] Units Admin Date 06/25/2017 Action Given Dose 31053 Units Route Irrigation Administered By Loraine Hawkins RN lidocaine 2% injection 20 mL Admin [...] | | | | | | [place] [address] | | | | | | [phone] | | | | | | | | +--------+---------+ + + + | 03/01/ | Office | Pulmonology | Mukul Clark MD | | | 2020 | Visit | | [address] | | | | | | [place] | | | | | | [address] | | | | | | | [...]
--- OUTSIDE RECORDS SUMMARY | ~2019-09-27 | XMS | Encounter Summary ---
Demographics + + + | Address | [address] | | | [place] [address] | + + + | Home Phone [...] Providers + +------+ + | Care Assistant Track And Field Coach Name | Role | Phone | [...] Insomnia; Need for | | | | [place], | | influenza | | | | [place] [address] | | vaccination | | | | [phone] | | | +--------+---------+ + + + [...] asleep. Though occasionally up to an hour. T hey typically have nocturia or other nighttime awakenings [...] Maxim Delgado. 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 I think this is in part [...] than 50% spent [facility]. Return to clinic in 4 weeks. CC: Juan Cherry MD documented in t his encounter Miscellaneous Notes Miscellaneous - TRINITY WATKINS - 12/13/2011 12:00 AM PDT documented in this encounter [...] [place] | | | | | | [address] | | | | | | | | +--------+---------+ + + + | 11/24/ | Office | Cardiology | [place], | | | 2019 | Visit | | SINDHU Erickson [address] | | | | | | [place], | | | | | | [place] [address] | | | | | | [phone] | | | | | | | [...]
--- OUTSIDE RECORDS SUMMARY | ~2019-09-27 | XMS | Encounter Summary ---
Demographics + + + | Address | [address] | | | [place] [address] | + + + | Home Phone [...] Providers + +------+ + | Care Stock Fitter Name | Role | Phone | [...] | | | | [facility] | [address] | [address] | | | | | EXERCISE | [place], | [place] | | | | | | [place] [address] | [place], [place] | | | | | | Phone: | [address] | | | | | | [phone] | Phone: | | | | | | Fax: | [phone] | | | | | | [phone] | Fax: | | | | | | | [phone] | +--------+--------+ + + + + Encounter Details +--------+---------+ + + + | Date | Type | Department | Care Team | Description | +--------+---------+ + + + | 08/20/ | Office | [facility] | Jared Mcdonough, | Chronic obstructive | | 2017 | Visit | MED CTR CARDIAC | [address] | pulmonary disease, | | | | REHABILITATION [address] [place], | unspecified COPD | | | | [address] [place] | [place] [address] | type (HCC) (Primary | | | | [place] [address] | [phone] | Dx) | | | | [phone] | | | +--------+---------+ + + + [...] this encounter Progress Notes Desean Chris - 08/20/2016 10:15 AM PDTPatient tolerated exercise [...] [place] | | | | | | [address] | | | | | | | | +--------+---------+ + + + | 11/24/ | Office | Cardiology | [place], | | | 2019 | Visit | | SINDHU Erickson [address] | | | | | | [place] | | | | | | [place] [address] | | | | | | [phone] | | | | | | | | +--------+---------+ + + + | 03/01/ | Office | Pulmonology | Mukul Clark MD | | | 2020 | Visit | | [address] | | | | | | [place] | | | | | | [address] | | | | | | | | +--------+---------+ + + + documented as of this encounter Visit Diagnoses + + | Diagnosis | + + | Chronic obstructive pulmonary disease, unspecified COPD type (HCC) - Primary | + + documented in this encounter"
--- OUTSIDE RECORDS SUMMARY | ~2019-09-27 | XMS | Encounter Summary ---
Demographics + + + | Address | [address] | | | [place] [address] | + + + | Home Phone [...] Team Providers + +------+ + | Care Carton Filling Machine Operator Name | Role | [...] + | 10/05/ | [facility] | 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 I reviewed the notes from Dr Chris Alarcon in [place], [place].It indicates that patient had CPAP intolerance [...] day f or her COPD through her coffee sampler. We performed a CPAP titration study on [...] spen t below SpO2 of 90% was0%.Transcutaneous TM1zllwpq 35-37mmHg during supine wake, and remained between [...] Historical Provider, Yinka Witt Respiratory Therapy Supplies [facility] Please provide patient with necessary CPAP supplies (she did not specify, okay to send order as appropriate) Diagnosis Code(s)327.23 . Length of Need 99 months. Please send order to [facility]. 01/13/13 Yes Loreta London MD Respiratory Therapy Supplies [facility] Change CPAP back to 11-14 cm H2O. All necessary supplies. No oxygen bleed in. Diagnosis Code(s)327.23. Length of Need: Lifetime. Please send order to [facility]. This is not a [...] this chart may have been created with Fancy voice recognition software. Occasi onal wrong-word or [...] [place] | | | | | | [address] | | | | | | | | +--------+---------+ + + + | 11/24/ | Office | Cardiology | [place], | | | 2019 | Visit | | SINDHU Erickson [address] | | | | | | [place] | | | | | | [place] [address] | | | | | | [phone] | | | | | | | [...]
--- OUTSIDE RECORDS SUMMARY | ~2019-09-27 | XMS | Encounter Summary ---
Demographics + + + | Address | [address] | | | [place] [address] | + + + | Home Phone [...] + +------+ + | Care Field Marketing Specialist Name | Role | Phone | + +------+ + PCP | Unavailable | + +------+ + Encounter Details +--------+ + + + + | Date | Type | Department | Care Team | Description | +--------+ + + + + | 09/23/ | Hospital | [facility] | Nestor Martinez, | | | 2010 | Encounter | MED CTR EMERGENCY | [address] | | | | | CENTER [address] | [place], [place] | | | | | [place] | [address] | | | | | [address] | | | | | | [phone] | | | +--------+ + + + [...] on those and returning to work at [employer] today. I discussed with her that it does not seem garcia to b e using the hydrocodone and proceeding to work in [employer] so I wrote her a note off work, and she also was given a small refill of [place] #15. I did ask her to go ahead and complete her entire course of antibiotics since this was star [place]el[place], and a t this point I do not see any etiology of her complaint of abdominal pain. IMPRESSION: Nonspecific abdominal pain. DICTATED BY: Yecenia Gallegos MD Emergency Medicine JOB #: [id number] EXT JOB #:[id number] cc: Nestor Martinez M.D. <Electronically Signed by [...] Nestor Martinez M.D. Emergency Medicine JOB #: [id number] EXT JOB #:[id number] <Electronicall y Signed by Nestor Martinez MD> [...] 7. Tramadol. 8. Compazine. 9. Synthroid. 10. [place]. 11. Neurontin. 12. Lexapro. 13. Cipro. 14. Flagyl. REVIEW OF SYSTEMS: A complete review of systems is negative except as detailed in HPI abov e. PHYSICAL EXAMINATION VITAL SIGNS: Blood pressure 105/61, heart rate 78, respirations 22, afebrile, 96% on room air. No ac [place] distress. HEENT: Pupils equal and reactive to [...] Nestor Martinez M.D. Emergency Medicine JOB #: [id number] EXT JOB #:[id number] <Electronicall y Signed by Nestor Martinez MD> [...] [place] | | | | | | [address] | | | | | | | | +--------+---------+ + + + | 11/24/ | Office | Cardiology | [place], | | | 2019 | Visit | | SINDHU Erickson [address] | | | | | | [place], | | | | | | [place] [address] | | | | | | [phone] | | | | | | | | +--------+---------+ + + + | 03/01/ | Office | Pulmonology | Mukul Clark MD | | | 2020 | Visit | | [address] | | | | | | [place] | | | | | | [id number] | | | | | | | [...] [address] | [place] | [phone] | | [facility] | | [address] | | | - LABORATORY | | | | + + + + + | [facility] | [address] | [place] | | | [facility] | | [address] | | | - LABORATORY [...] + | [facility] | [address] | [place], [place] | [phone] | | [facility] | | [address] | | | - LABORATORY | | | | + + + + + | [facility] | [address] | [place], [place] | | | [facility] | | [address] [place] [address] | | | - LABORATORY | | | | + + + + + CT Abdomen Pelvis w Contrast (09/23/2010 11:33 AM PDT) + + | Specimen | + + | | + + + + + | Narrative | Performed At | + + + | [facility] Diagnostic Imaging Department | [facility] | | [address] | [facility] | | ABDOMEN AND PELVIS CT WITH [...] Transcribed | | | Date/Time: 09/24/2010 13:01 Director Of Strategic Sales: | | | <Electronically Signed by Elías Cardoso MD> 09/24/101938 | | + + + + + | Procedure Note | + + | Reed, Rad Conversion - 04/02/2013 3:30 PM [facility] | | Diagnostic Imaging Department [address] [place] [address] | | ABDOMEN AND PELVIS CT WITH [...] 09:10 | |Transcribed Date/Time: 09/24/2010 13:01 | |Director Of Strategic Sales: | |<Electronically Signed by Elías Cardoso MD> 09/24/101938 | + + + +---------+ + + | Performing | Address | City/State/Zipcode | Phone Number | | Organization | | | | + +---------+ + + | [place] | | | | | [facility] | | | | + +---------+ + + documented in this encounter Visit Diagnoses Not on filedocumented in this encounter"
--- OUTSIDE RECORDS SUMMARY | ~2019-09-27 | XMS | Encounter Summary ---
Demographics + + + | Address | [address] | | | [place] [address] | + + + | Home Phone [...] Providers + +------+ + | Care Java Sybase Developer Name | Role | Phone | [...] [address] | | | | | [place], | [place], [place] | | | | | [place] [address] | [address] | | | | | [phone] | | | +--------+--------+ + + + [...] [place] | | | | | | [address] | | | | | | | | +--------+---------+ + + + | 11/24/ | Office | Cardiology | [place], | | | 2019 | Visit | | SINDHU Erickson [address] | | | | | | [place] | | | | | | [place] [address] | | | | | | [phone] | | | | | | | | +--------+---------+ + + + | 03/01/ | Office | Pulmonology | Mukul Clark MD | | | 2020 | Visit | | [address] | | | | | | [place] | | | | | | [phone] | | | | | | | | +--------+---------+ + + + documented as of this encounter Visit Diagnoses Not on filedocumented in this encounter"
--- OUTSIDE RECORDS SUMMARY | ~2019-09-27 | XMS | Encounter Summary ---
Demographics + + + | Address | [address] | | | [place] [address] | + + + | Home Phone [...] Providers + +------+ + | Care Family Development Extension Specialist Name | Role | Phone | [...] [address] | | | | | [place], | [place] | | | | | [place] [address] | [address] | | | | | [phone] | | | +--------+--------+ + + + [...] [place] | | | | | | [address] | | | | | | | | +--------+---------+ + + + | 11/24/ | Office | Cardiology | [place] | | | 2019 | Visit | | SINDHU Erickson [address] | | | | | | [place] | | | | | | [place] [address] | | | | | | [phone] | | | | | | | [...]
--- OUTSIDE RECORDS SUMMARY | ~2019-09-27 | XMS | Encounter Summary ---
Demographics + + + | Address | [address] | | | [place] [address] | + + + | Home Phone [...] Providers + +------+ + | Care Stone Sandblaster Name | Role | Phone | + [...] + + | 09/17/ | Telephone | [facility] | Kevin Sandoval, | Other (increased | | 2013 | | PULMONARY [address] | MD [address] | shortness of breath) | | | | [place] [facility] [place] [facility] [place], | [place] | | | | | [place] [address] | [address] | | | | | [phone] | | | +--------+ + + + [...] | | | | | | [place] [address] | | | | | | [phone] | | | | | | | | +--------+---------+ + + + | 03/01/ | Office | Pulmonology | Mukul Clark MD | | | 2020 | Visit | | [address] | | | | | | [place] | | | | | | [address] | | | | | | | | +--------+---------+ + + + documented as of this encounter Visit Diagnoses Not on filedocumented in this encounter"
--- OUTSIDE RECORDS SUMMARY | ~2019-09-27 | XMS | Encounter Summary ---
Demographics + + + | Address | [address] | | | [place] [address] | + + + | Home Phone [...] Team Providers + +------+ + | Care Pigment And Lacquer Mixer Name | Role | Phone | [...] | Cardiac | Diagnoses | Sharonda, | aTd Cardiac | | | Services | Rehabilitatio | Chronic | MD Jared | | | | Required | n | obstructive | [address] | Rehabilitatio | | | | | pulmonary | [address] | n [address] | | | | | disease, | [place], | [place] | | | | | unspecified | [place] [address] | [place], [place] | | | | | COPD type | Phone: | [address] | | | | | (HCC) | [phone] | Phone: | | | | | Pulmonary | Fax: | [phone] | | | | | emphysema, | [phone] | Fax: | | | | | unspecified | | [phone] | | | | | emphysema | | | | | | | type ([facility]) | | | +--------+ + + + + + Encounter Details +--------+---------+ + + + | Date | Type | Department | Care Team | Description | +--------+---------+ + + + | 05/28/ | Office | [facility] | Jared Mcdonough, | Chronic obstructive | | 2017 | Visit | MED CTR CARDIAC | [address] | pulmonary disease, | | | | REHABILITATION [address] [place], | unspecified COPD | | | | [address] [place] [place] | [place] [address] | type (HCC) (Primary | | | | [place] [address] | [phone] | Dx); Pulmonary | | | | [phone] | | emphysema, | | | | [...] Desean Chris - 05/28/2016 3:42 PM PDT [facility] CARDIAC [facility]ILITATION [address] [place] [address] Cardiac Rehab Date: 05/28/2016 Patient Information Patient [...] [place] | | | | | | [address] | | | | | | | | +--------+---------+ + + + | 11/24/ | Office | Cardiology | [place] | | | 2019 | Visit | | SINDHU Erickson [address] | | | | | | [place] | | | | | | [place] [address] | | | | | | [phone] | | | | | | | | +--------+---------+ + + + | 03/01/ | Office | Pulmonology | Mukul Clark MD | | | 2020 | Visit | | [address] | | | | | | [place] | | | | | | [address] | | | | | | | | +--------+---------+ + + + documented as of this encounter Visit Diagnoses + + | Diagnosis | + + | Chronic obstructive pulmonary disease, unspecified COPD type (HCC) - Primary | + + | Pulmonary emphysema, unspecified emphysema type (HCC) | + + documented in this encounter"
--- OUTSIDE RECORDS SUMMARY | ~2019-09-27 | XMS | Encounter Summary ---
Demographics + + + | Address | [address] | | | [place] [address] | + + + | Home Phone [...] Team Providers + +------+ + | Care Casino Dealer Name | Role | Phone | + +------+ + PCP | Unavailable | + +------+ + Encounter Details +--------+ + + + + | Date | Type | Department | Care Team | Description | +--------+ + + + + | 11/08/ | Hospital | [facility] | Ozzy Delcid, | | | 2009 - | Encounter | MED CTR OP REHAB | [address] | | | | | [address] [place] | [address] [place], | | | 11/23/ | | [place] [address] | [place] [address] | | | 2009 | | [phone] | [phone] | | | | | | | [...] | | | | | | [place] [address] | | | | | | [phone] | | | | | | | | +--------+---------+ + + + | 03/01/ | Office | Pulmonology | Mukul Clark MD | | | 2020 | Visit | | [address] | | | | | | [place] | | | | | | [address] | | | | | | | | +--------+---------+ + + + documented as of this encounter Visit Diagnoses Not on filedocumented in this encounter"
--- OUTSIDE RECORDS SUMMARY | ~2019-09-27 | XMS | Encounter Summary ---
Demographics + + + | Address | [address] | | | [place] [address] | + + + | Home Phone [...] Providers + +------+ + | Care Barrel Washer Machine Name | Role | Phone | + +------+ + | Juan Cherry DO | PCP | | + +------+ + Encounter Details +--------+ + + + + | Date | Type | Department | Care Team | Description | +--------+ + + + + | 09/09/ | Hospital | [facility] | Conversion | Pain | | 2015 | Encounter | CONVERSION DEP [address] | Transaction, | | | | | [address] | Provider Unknown | | | | | [place], [place] | [phone] | | | | | [address] | | | | | | [phone] | | | +--------+ + + + [...] [place] | | | | | | [address] | | | | | | | | +--------+---------+ + + + | 11/24/ | Office | Cardiology | [place], | | | 2019 | Visit | | SINDHU Erickson [address] | | | | | | [place] | | | | | | [place] [address] | | | | | | [phone] | | | | | | | | +--------+---------+ + + + | 03/01/ | Office | Pulmonology | Mukul Clark MD | | | 2020 | Visit | | [address] | | | | | | [place] | | | | | | [address] | | | | | | | [...]
--- OUTSIDE RECORDS SUMMARY | ~2019-09-27 | XMS | Encounter Summary ---
Demographics + + + | Address | [address] | | | [place] [address] | + + + | Home Phone [...] Team Providers + +------+ + | Care Brand Marketing Intern Name | Role | Phone | [...] | | | MRI Brain w | [address] | | | | | | wo Contrast | Phone: | | | | | | | [phone] | | | | | | | Fax: | | | | | | | [phone] | | +--------+--------+ + + + + [...] | | | MRI Brain w | [address] | | | | | | wo Contrast | Phone: | | | | | | | [phone] | | | | | | | Fax: | | | | | | | [phone] | | +--------+--------+ + + + + Encounter Details +--------+ + + + + | Date | Type | Department | Care Team | Description | +--------+ + + + + | 08/09/ | Hospital | [facility] | Daya Decker, | Aleksandr prolactin | | 2016 | Encounter | MED CTR MRI [address] | MD [address] [facility] [address] | level | | | | [place], | [place] | | | | | [place] [address] | [address] | | | | | [phone] | [phone] | | | | | | | [...] [place] | | | | | | [address] | | | | | | | | +--------+---------+ + + + | 11/24/ | Office | Cardiology | [place], | | | 2019 | Visit | | SINDHU Erickson [address] | | | | | | [place] | | | | | | [place] [address] | | | | | | [phone] | | | | | | | | +--------+---------+ + + + | 03/01/ | Office | Pulmonology | Mukul Clark MD | | | 2020 | Visit | | [address] | | | | | | [place] | | | | | | [address] | | | | | | | [...] mL/min/1.73m2 | [facility] | | | [place] | | | MEDICAL | | | [...] [address] | [place] | [phone] | | [facility] | | [address] | | | - LABORATORY | | [...] and signal | | characteristics. No abnormal H5bzuihcdfpwways, contrast enhancement, susceptibility | | change, or [...]
--- OUTSIDE RECORDS SUMMARY | ~2019-09-27 | XMS | Encounter Summary ---
Demographics + + + | Address | [address] | | | [place] [address] | + + + | Home Phone [...] [address] | | | | | [place], | [place], | | | | | [place] [address] | [place] [address] | | | | | [phone] | [phone] | | | | | | | [...] | | | | | | [place] [address] | | | | | | [phone] | | | | | | | | +--------+---------+ + + + | 03/01/ | Office | Pulmonology | Mukul Clark MD | | | 2020 | Visit | | [address] | | | | | | [place] | | | | | | [address] | | | | | | | [...] + | [facility] | [address] | [place] | [phone] | | [facility] | | [address] | | | - LABORATORY | | [...]
--- OUTSIDE RECORDS SUMMARY | ~2019-09-27 | XMS | Encounter Summary ---
Demographics + + + | Address | [address] | | | [place] [address] | + + + | Home Phone [...] Team Providers + +------+ + | Care Combination Technician Name | Role | Phone | + +------+ + | Juan Cherry DO | PCP | | + +------+ + Encounter Details +--------+ + + + + | Date | Type | Department | Care Team | Description | +--------+ + + + + | 04/12/ | Hospital | [facility] | Ozzie Hayes | | | 2013 | Encounter | MED CTR EMERGENCY | MD Ran [address] | | | | | [place] [address] | [address] [place] | | | | | [place], [place] | [place] [address] | | | | | [address] | [phone] | | | | | [phone] | | | +--------+ + + + [...] | | send order to [facility] | | | | | | | [...] Ozzie Hayes MD - 04/12/2013 2:11 [place] [address] Patient Name: JADYN SCHMITZ Provider: Unit #: [id number] Location: : 1965 DATE: 04/12/2013 TIME OF [...] Ozzie Hayes MD Emergency Medicine JOB #: [id number] EXT JOB #:[id number] <<Signature on File>> Ozzie Hayes MD04/12/13 [address] [...] | | | | | | [place] [address] | | | | | | [phone] | | | | | | | | +--------+---------+ + + + | 03/01/ | Office | Pulmonology | Mukul Clark MD | | | 2020 | Visit | | [address] | | | | | | [place] | | | | | | [address] | | | | | | | [...] Performed At | + + + | [facility] Diagnostic Imaging | [place] | | Department [address] [facility] | | [ rep ct [address]] [ rep [facility] | | st zip] Signed | - IMAGING | | | | | Patient Name: JADYN SCHMITZ | | | Physician: CHEVY : 1965 Age: 48 Sex: F Unit | | | #: [id number] Exam Date: 04/12/13 Location: | | | ER Report #: [id number] Page: | | | %(RAD)RES..mtdd.print.filter("pg") of %(RAD) | | | RES..mtdd.print.filter("tpg") | | | | | | Accession Number: [id number] | | | PORTABLE CHEST CLINICAL HISTORY: [...] Transcribed | | | Date/Time: 04/12/2013 08:42 Milieu Manager: | | | <<Signature on File>> | | | | | | Cesar Ren MD04/12/13 0957 <Electronically signed by | | | Cesar Ren MD> Cesar Ren MD 04/12/13 | | | 0732 Milieu Manager: TotalHousehold Ejjvorlnmcpxb25/17/14 0842 | | | Ozzie Hayes MD | | + + + + + + + + | Performing | Address | City/State/Zipcode | Phone Number | | Organization | | | | + + + + + | [facility] | [address] | [place] | [phone] | | [facility] | | [address] | | | - IMAGING | | | | + + + + + documented in this encounter Visit Diagnoses Not on filedocumented in this encounter
--- OUTSIDE RECORDS SUMMARY | ~2019-09-27 | XMS | Encounter Summary ---
Demographics + + + | Address | [address] | | | [place] [address] | + + + | Home Phone [...] Team Providers + +------+ + | Care Curb Setter Name | Role | Phone | + +------+ + | Juan Cherry DO | PCP | | + +------+ + Encounter Details +--------+ + + + + | Date | Type | Department | Care Team | Description | +--------+ + + + + | 11/12/ | Hospital | [facility] | Andriy Weber | | | 2016 | Encounter | MED CTR XRAY [address] | MD [address] | | | | | [place] | [address] [place] | | | | | [place] [address] | [place] [address] | | | | | [phone] | | | | | | | [...] | 0 | 10/13/19 | | | Ffwimounll-JFYQ-Hnux | mouth as needed. | | | 16 | 7 | | -Cod [id number] MG | | | | | | [...] [place] | | | | | | [address] | | | | | | | | +--------+---------+ + + + | 11/24/ | Office | Cardiology | [place], | | | 2019 | Visit | | [address]INDHU Erickson [address] | | | | | | [place] | | | | | | [place] [address] | | | | | | [phone] | | | | | | | | +--------+---------+ + + + | 03/01/ | Office | Pulmonology | Mukul Clark MD | | | 2020 | Visit | | [address] | | | | | | [place] | | | | | | [address] | | | | | | | [...]
--- OUTSIDE RECORDS SUMMARY | ~2019-09-27 | XMS | Encounter Summary ---
Demographics + + + | Address | [address] | | | [place] [address] | + + + | Home Phone [...] Providers + +------+ + | Care Chief Technologist Name | Role | Phone | [...] Need updated | | | | | [facility] [address] | address | | | | | [place] | | | | | | [address] | | | | | | [phone] | | | +--------+ + + + [...] Encounter - Karolina Posada RN - 11/11/2013 3:45 PM PDTCalled back pt to simón cheungElectrontrinh signed by Karolina Posada RN at 11/11/2013 3:46 PM PDTdocumented in this encounter Plan of [...] [place] | | | | | | [address] | | | | | | | | +--------+---------+ + + + | 11/24/ | Office | Cardiology | [place], | | | 2019 | Visit | | SINDHU Erickson [address] | | | | | | [place] | | | | | | [place] [address] | | | | | | [phone] | | | | | | | [...]
--- OUTSIDE RECORDS SUMMARY | ~2019-09-27 | XMS | Encounter Summary ---
Demographics + + + | Address | [address] | | | [place] [address] | + + + | Home Phone [...] Team Providers + +------+ + | Care Hspt Tutor Name | Role | Phone | [...] [address] | | | | | [place], | [place] | | | | | [place] [address] | [address] | | | | | [phone] | | | +--------+--------+ + + + [...] [place] | | | | | | [address] | | | | | | | | +--------+---------+ + + + | 11/24/ | Office | Cardiology | [place] | | | 2019 | Visit | | SINDHU Erickson [address] | | | | | | [place] | | | | | | [place] [address] | | | | | | [phone] | | | | | | | [...]
--- OUTSIDE RECORDS SUMMARY | ~2019-09-27 | XMS | Encounter Summary ---
Demographics + + + | Address | [address] | | | [place] [address] | + + + | Home Phone [...] Team Providers + +------+ + | Care Crm Administrator Name | Role | Phone | [...] + + | 02/22/ | Office | [facility] [place] | [place], | COPD exacerbation | | 2012 | Visit | PULMONARY [address] | Loreta Alonso MD | ([facility]) (Primary Dx); | | | | [place], | | [place] (obstructive | | | | [place] [address] | | sleep apnea); | | | | [phone] | | Central sleep apnea; | | [...] Pulmonary Follow Up Note Loreta London MD [place] [facility] [address] [place], [address] HPI Rosario Malik is a 48 y.o. [...] 1 Years of Education: 13 Occupational History [employer] Social History Main Topics Smoking status: [...] mg 2 times daily. [facility] Please provide patient with necessary CPAP supplies ( she did not specify, okay to send order as appropriate) Diagnosis Code(s)327.23 . Length of Need 99 months. Please send order to [facility]. 1 each 0 Respiratory Therapy Supplies [facility] Change CPAP back to 11-14 [...] Data: CPAP Data: Dates: 01/23/13 Machine type: The [employer] S9 auto CPAP Home Health Company: [employer] [facility] CPAP Pressure: 11-14 cm H2O cmH2O Median [...] made to ensure accuracy; however, inadvertent computerized developer automatic errors may be pre sent. documented in t his encounter Plan of Treatment +--------+---------+ + + + | Date | Type | Specialty | Care Team | Description | +--------+---------+ + + + | 09/27/ | Office | Sleep Medicine | Meghan Garcia MD | | | 2019 | Visit | | [address] [facility] | | | | | | [place] | | | | | | [address] | | | | | | | | +--------+---------+ + + + | 11/24/ | Office | Cardiology | [place], | | | 2019 | Visit | | [address]INDHU Erickson [address] | | | | | | [place] | | | | | | [place] [address] | | | | | | [phone] | | | | | | | | +--------+---------+ + + + | 03/01/ | Office | Pulmonology | Mukul Clark MD | | | 2020 | Visit | | [address] | | | | | | [place] | | | | | | [id number] | | | | | | | [...]
--- OUTSIDE RECORDS SUMMARY | ~2019-09-27 | XMS | Encounter Summary ---
Demographics + + + | Address | [address] | | | [place] [address] | + + + | Home Phone [...] Team Providers + +------+ + | Care Endocrinologist Name | Role | Phone | + +------+ + | Juan Cherry DO | PCP | | + +------+ + Encounter Details +--------+ + + + + | Date | Type | Department | Care Team | Description | +--------+ + + + + | 08/18/ | Hospital | [facility] | Mukul Clark MD | Abnormal lung | | 2020 | Encounter | MED CTR PULMONARY | [address] | function test | | | | FUNCTION [address] | [place] | | | | | [place], | [address] | | | | | [place] [address] | | | | | | [phone] | | | +--------+ + + + [...] | | | send order to [facility] | | | | | | | [facility]. | | | | | | | [...] Sandoval MD, MD 08/19/2019 12:26 PM PDT [facility] by Kevin Sandoval MD at 12:29 [...] | | | | | | [place] [address] | | | | | | [phone] | | | | | | | | +--------+---------+ + + + | 03/01/ | Office | Pulmonology | Mukul Clark MD | | | 2020 | Visit | | [address] | | | | | | [place] | | | | | | [address] | | | | | | | [...] MD, | | | 08/19/2019 12:26 PM [facility] | | |obstructive physiology that becomes [...] | |12:26 PM PDT | | |[facility] | | + + + documented [...] 10:52 | | | | | Once, [facility] 08/19/19 at 1030, For 1 | | AM PDT | | | | | dose, Shake well. Use with | | | | | | | spacer., | | | | | | + +--------+ +---------+------+------+ +---+---+ | | | +---+---+ documented in this encounter"
--- OUTSIDE RECORDS SUMMARY | ~2019-09-27 | XMS | Encounter Summary ---
Demographics + + + | Address | [address] | | | [place] [address] | + + + | Home Phone [...] + +------+ + | Care Media Services Director Name | Role | Phone | [...] + + | 02/09/ | [facility] | [facility] | Kevin Sandoval, | COPD exacerbation | | 2013 | Visit | PULMONARY [address] | [address] | ([facility]) (Primary Dx); | | | | [place], | [place], [place] | COPD (chronic | | | | [place] [address] | [address] | obstructive | | | | [phone] | | pulmonary disease) | | | | | | ([facility]); Central sleep | | | | [...] nd it. Keep your chin up. 3. [place] 1 puff into the spacer by pressing [...] your mouth.) 3. Keep your chin up. [place] 1 puff by pressing down on the [...] store it in a dry p lace. [id number] [employer]. [address] [place] [address], [place] [address]. All righ ts reserved. This information is not intended as a substitute for professional medical care. Always follow your healthcare professional's instructions. documented in this encounter Progress Notes Kevin Sandoval MD - 02/09/2014 11:03 AM PSTFormatting of this note might be different f rom the original. Pulmonary Follow Up 02/09/2014 HPI Rosario aMlik is a 49 y.o. female patient of Juan Cherry DO here today for foll ow up of COPD. The last pulmonary clinic visit was on 12/30/13. Since their last appointment they feel lik e their breathing issues have been fluctuating. They have had any acute pulmonary illnesses. Specifically the patient was an emergency department at the [facility] [place]. The patient has required [...] have not completed pulmonary [facility]. The patient does cough chronically, and [...] [facility]) 10/28/2012 Overview: Managed by [facility] along with hypothyroidism Osteoarthritis Tachycardia Asthma [...] Need 99 months. Please send order to [facility] D isp: 1 each, Rfl: 0 Respiratory Therapy Supplies MISC, Change CPAP back to 11-14 cm H2O. All necessary supplies . No oxygen bleed in. Diagnosis Code(s)327.23. Length of Need: Lifetime. Please send order t [facility]. This is not [...] | | | | | | [place] [address] | | | | | | [phone] | | | | | | | | +--------+---------+ + + + | 03/01/ | Office | Pulmonology | Mukul Clark MD | | | 2020 | Visit | | [address] | | | | | | [place] | | | | | | [address] | | | | | | | [...]
--- OUTSIDE RECORDS SUMMARY | ~2019-09-27 | XMS | Encounter Summary ---
Demographics + + + | Address | [address] | | | [place] [address] | + + + | Home Phone [...] Team Providers + +------+ + | Care Billet Heater Name | Role | Phone | + +------+ + PCP | Unavailable | + +------+ + Encounter Details +--------+ + + + + | Date | Type | Department | Care Team | Description | +--------+ + + + + | 08/25/ | [facility] | [facility] | | | | 2009 | Encounter | MED CTR XRAY [address] | | | | | | [place] | | | | | | [place] [address] | | | | | | [phone] | | | +--------+ + + + [...] [place] | | | | | | [id number] | | | | | | | | +--------+---------+ + + + | 11/24/ | Office | Cardiology | [place], | | | 2019 | Visit | | SINDHU Erickson [address] | | | | | | [place] | | | | | | [place] [address] | | | | | | [phone] | | | | | | | | +--------+---------+ + + + | 03/01/ | Office | Pulmonology | Mukul Clark MD | | | 2020 | Visit | | [address] | | | | | | [place] | | | | | | [address] | | | | | | | | +--------+---------+ + + + documented as of this encounter Visit Diagnoses Not on filedocumented in this encounter"
--- OUTSIDE RECORDS SUMMARY | ~2019-09-27 | XMS | Encounter Summary ---
Demographics + + + | Address | [address] | | | [place] [address] | + + + | Home Phone [...] Providers + +------+ + | Care Physical Therapy Assistant Name | Role | Phone | [...] + + | 09/02/ | Hospital | [facility] | [place], | Shortness of breath; | | 2017 | Encounter | MED CTR NUCLEAR | SINDHU Erickson [address] | Racing heart beat; | | | | MEDICINE [address] | [place], | Palpitations | | | | [place], | [place] [address] | | | | | [place] [address] | [phone] | | | | | [phone] | | | +--------+ + + + [...] | | | | | order to [facility]. | | | | | [...] | | | | | [facility]. | | | | | [...] 52 y.o. PRIMARY CARE: DO CAMILLE Guillaume COMMERCIAL ADMINISTRATOR: Jared Mcdonough MD 48-HOUR HOLTER MONITOR REPORT [...] reported times. Signed by: Jared Mcdonough MD [facility] 09/04/2017, 10:18 documented in this encounter Plan [...] | | | | | | [place] [address] | | | | | | [phone] | | | | | | | | +--------+---------+ + + + | 03/01/ | Office | Pulmonology | Mukul Clark MD | | | 2020 | Visit | | [address] | | | | | | [place] | | | | | | [address] | | | | | | | [...]
--- OUTSIDE RECORDS SUMMARY | ~2019-09-27 | XMS | Encounter Summary ---
Demographics + + + | Address | [address] | | | [place] [address] | + + + | Home Phone [...] Providers + +------+ + | Care Hospice Rn Name | Role | Phone | [...] + + | 05/15/ | Office | [facility] | Offenstein, | GARRY (obstructive | | 2012 | Visit | PULMONARY [address] | Loreta Alonso MD | sleep apnea) | | | | [place], | | (Primary Dx); | | | | [place] [address] | | Central sleep apnea; | | | | [phone] | | Insomnia; COPD | | | [...] will send a corrected CPAP order to [facility]. 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 Clarification for order from [...] made to ensure accuracy; however, inadvertent computerized juvenile correctional officer errors may be pre sent. documented in [...] [place] | | | | | | 169852 | | | | | | | | +--------+---------+ + + + | 11/24/ | Office | Cardiology | Flores, | | | 2019 | Visit | | SINDHU Erickson [address] | | | | | | [place], | | | | | | [place] [address] | | | | | | [phone] | | | | | | | | +--------+---------+ + + + | 03/01/ | Office | Pulmonology | Mukul Clark MD | | | 2020 | Visit | | [address] | | | | | | [place] | | | | | | [address] | | | | | | | [...]
--- OUTSIDE RECORDS SUMMARY | ~2019-09-27 | XMS | Encounter Summary ---
Demographics + + + | Address | [address] | | | [place] [address] | + + + | Home Phone [...] Providers + +------+ + | Care Manager Bench Name | Role | Phone | + [...] | | | | | [address] [place] | | | | | | [place] [address] | | | | | | [phone] | | | +--------+ + + + [...] Weber, PT - 02/25/2014 10:43 [facility] [address] [place] [address] Physical Therapy Discharge Note Date: 02/25/2014 Patient [...] [place] | | | | | | [address] | | | | | | | | +--------+---------+ + + + | 11/24/ | Office | Cardiology | [place], | | | 2019 | Visit | | SINDHU Erickson [address] | | | | | | [place], | | | | | | [place] [address] | | | | | | [phone] | | | | | | | | +--------+---------+ + + + | 03/01/ | Office | Pulmonology | Mukul Clark MD | | | 2020 | Visit | | [address] | | | | | | [place] | | | | | | [address] | | | | | | | | +--------+---------+ + + + documented as of this encounter Visit Diagnoses Not on filedocumented in this encounter"
--- OUTSIDE RECORDS SUMMARY | ~2019-09-27 | XMS | Encounter Summary ---
Demographics + + + | Address | [address] | | | [place] [address] | + + + | Home Phone [...] Team Providers + +------+ + | Care Mushroom Packer Name | Role | Phone | + +------+ + PCP | Unavailable | + +------+ + Encounter Details +--------+ + + + + | Date | Type | Department | Care Team | Description | +--------+ + + + + | 07/25/ | Hospital | [facility] | [place], | | | 2010 | Encounter | MED CTR EMERGENCY | Ozzy Kim MD [address] | | | | | CENTER [address] | [address] [facility] | | | | | [place], [place] | [place] [address] | | | | | [address] | [phone] | | | | | [phone] | | | +--------+ + + + [...] encounter ED Notes Ozzy Louis MD - 07/25/2010 4:40 AM PDTDATE: 07/25/2010 TIME OF EXAM: 0507 CHIEF COMPLAINT: UTI. PRIMARY CARE: Dr. Delcid HISTORY OF PRESENT ILLNESS: This is a 45-year-old female who has had dysuria since about 3 a.m. arturo g with some slight nausea and suprapubic pain. No fevers or chills. No vomiting or diarrhea. No hemat uria. No injury or trauma. No chest pain, shortness of breath, coughi ng, headache. Minimal flank pain . PAST MEDICAL HISTORY: Hysterectomy, fibromyalgia, osteoarthritis, tobacco use, asthma. CURRENT MEDICATIONS 1. Synthroid. 2. Geodon. 3. Tramadol. 4. Potassium. 5. Cortef. 6. Neurontin. 7. Lexapro. ALLERGIES 1. ERYTHROMYCIN. 2. DEMEROL. 3. NSAIDs REVIEW OF SYSTEMS: A 10-system review is negative except noted above. SOCIAL HISTORY: Smokes a half pack daily. PHYSICAL EXAMINATION VITAL SIGNS: Blood pressure 102/54, heart rate 74, respirations 16, temperature 96.4, O2 s aturation 96%. GENERAL APPEARANCE: This is a female, sitting up, speaking normally. HEENT: Atraumatic. Pupils equal, round, and reactive. Oropharynx benign. NECK: Supple. CHEST: Good air movement bilaterally. Some inspiratory-expiratory wheezes throughout. No r ales. CV: Normal S1 and S2. ABDOMEN: Soft. Suprapubic tenderness only. No tenderness elsewhere. No rebound, guarding, or masses. Bowel tones are present. BACK: No flank pains. EXTREMITIES: Nontender. No edema. NEUROLOGIC: Alert and oriented. Gait and speech are normal. EMERGENCY DEPARTMENT COURSE: We went ahead and did obtain a urine sample which dips positi ve for gianni kocyte esterase consistent with UTI. I think that is likely the cause of her sym ptoms. Will go ahead and treat her with some Cipro (first dose was given here), Pyridium, a nd Branford for pain. Plenty of fl uids. Return for any concerns. IMPRESSION: URINARY TRACT INFECTION. DICTATED BY: Ozzy Louis MD Emergency Medicine JOB #: [id number] EXT JOB #:[id number] <Electronicall y Signed by Ozzy Louis MD> 07/26/10 0733 documented in this encounter Plan of Treatment [...] | | 2019 | Visit | | SNIDHU Erickson [address] | | | | | | [place] | | | | | | [place] [address] | | | | | | [phone] | | | | | | | | +--------+---------+ + + + | 03/01/ | Office | Pulmonology | Mukul Clark MD | | | 2020 | Visit | | [address] | | | | | | [place] | | | | | | [address] | | | | | | | [...] - 1.030 | [facility] | | | [place], | | | [facility] | | [...] + + + + | Squamous | RARE | FEW /hps | [facility] | | | Epithelial | | | [facility] | | | Cells, | | | MEDICAL | | | Urine | | | CENTER - | | | | | | LABORATORY | | + + + + + + | Bacteria, | FEW | NONE /hpf | [facility] [...] + | [facility] | [address] | [place], [place] | [phone] | | [facility] | | [address] | | | - LABORATORY | | | | + + + + + | [facility] | [address] | [place], [place] | | | [facility] | | [address], [facility] | | | - LABORATORY | | | | + + + + + documented in this encounter Visit Diagnoses Not on filedocumented in this encounter"
--- OUTSIDE RECORDS SUMMARY | ~2019-09-27 | XMS | Encounter Summary ---
Demographics + + + | Address | [address] | | | [place] [address] | + + + | Home Phone [...] Providers + +------+ + | Care Electrical Prospecting Observer Name | Role | Phone | + +------+ + | Juan Cherry DO | PCP | | + +------+ + Encounter Details +--------+ + + + + | Date | Type | Department | Care Team | Description | +--------+ + + + + | 05/03/ | Hospital | [facility] | Ozzie Hayes | | | 2012 | Encounter | MED CTR EMERGENCY | MD Ran [address] | | | | | CENTER [address] | [address] [facility] | | | | | [place], [place] | [place] [address] | | | | | [address] | [phone] | | | | | [phone] | | | +--------+ + + + [...] encounter ED Notes Ozzie Hayes MD - 05/03/2012 4:24 [place] [address] Patient Name: JADYN SCHMITZ Provider: Unit #: [id number] Location: : 1965 DATE: 05/03/2012 TIME OF EXAM: 0410. REASON FOR PRESENTATION: Dental pain. HISTORY OF PRESENT ILLNESS: The patient is a 47-year-old female, post-extraction of right lower 3 molars this past . Notes increasing dental pain since that time. She has not noticed any significant swelling out of the ordinary, has not been febrile, ledezma s no pain with opening her mouth. No pain or swelling in the back of throat. No difficulty swallowing or breathing. Pain is severe, not worsened or improved by anything. She cannot recall the name of the pain medicine that she is on at home, but says that it i s not adequately relieving her pain or that it only relieves it for a short period of time. No fever. No sinus pain or congestion. No headache or neck stiffness. No cough or sputum p roduction. No difficulty swallowing or breathing. No abdomen pain, vomiting, diarrhea, dysu macho, hematuria, flank pain, skin rashes, lesions, or other symptoms or complaints. PAST MEDICAL HISTORY: Fibromyalgia, osteoarthritis, emphysema. FAMILY HISTORY: Noncontributory. SOCIAL HISTORY: Smokes cigarettes. Denies alcohol or street drug use. MEDICATIONS 1. Tylenol. 2. Albuterol. 3. Vitamin D3. 4. Cymbalta. 5. Advair. 6. Neurontin. 7. Levothyroxine. 8. Multivitamin. 9. Tramadol. 10. Geodon. ALLERGIES 1. ERYTHROMYCIN. 2. NSAIDs. 3. MEPERIDINE. REVIEW OF SYSTEMS: As noted in HPI. PHYSICAL EXAMINATION VITAL SIGNS: Blood pressure 112/50, heart rate 75, respiratory rate 18, temperature 99.4, oxygen saturation 97% on room air. GENERAL: The patient is nontoxic appearing, in no acute distress. HEENT: Normocephalic. Oropharynx moist, patent. No trismus. She does have extraction sites at the lower 3 molars on the right mandible. There is no significant drainage. It is mildl y swollen. No pointing abscess. Posterior pharynx is normal. Tongue is not elevated. Voice is normal. NECK: Supple without meningismus or lymphadenopathy. HEART: Regular, no murmurs. LUNGS: Clear, symmetric, good air movement. SKIN: Intact without rashes or lesions. NEUROLOGIC: The patient is alert, oriented, appropriate, and ambulatory in the emergency d epartment without difficulty. Normal balance and gait. PROCEDURE: The patient agreed to a dental block. A mandibular nerve block was placed with 0.5% Marcaine with epinephrine with good achievement of anesthesia. DISCUSSION: The patient is here with post-procedural dental pain. It may be an early devel oping abscess along that right jawline. She is not febrile or otherwise toxic. Outpatient t reatment is indicated. Will switch her antibiotics to clindamycin. She will be placed on clove oil and referred t o followup with her dentist as soon as possible. She is to return here if her symptoms change, worsen, or if new symptoms developed, especi ally fevers , pain with opening the mouth or jaw, significant swelling, or other concerns. DIAGNOSES 1. POSTPROCEDURAL DENTAL PAIN. 2. DENTAL ABSCESS. PLAN: As above. DICTATED BY: Ozzie Hayes MD Emergency Medicine JOB #: [id number] EXT JOB #:[id number] <<Signature on File>> Ozzie Hayes MD05/07/12 2152 < documented in this encounter Plan of [...] [place] | | | | | | [address] | | | | | | | | +--------+---------+ + + + | 11/24/ | Office | Cardiology | [place], | | | 2019 | Visit | | SINDHU Erickson [address] | | | | | | [place] | | | | | | [place] [address] | | | | | | [phone] | | | | | | | | +--------+---------+ + + + | 03/01/ | Office | Pulmonology | Mukul Clark MD | | | 2020 | Visit | | [address] | | | | | | [place] | | | | | | [address] | | | | | | | | +--------+---------+ + + + documented as of this encounter Visit Diagnoses Not on filedocumented in this encounter"
--- OUTSIDE RECORDS SUMMARY | ~2019-09-27 | XMS | Encounter Summary ---
Demographics + + + | Address | [address] | | | [place] [address] | + + + | Home Phone [...] Providers + +------+ + | Care Press Washer Name | Role | Phone | [...] | | | | [facility] | [address] | [address] | | | | | EXERCISE | [place], | [address] [place] | | | | | | [place] [address] | [place], [place] | | | | | | Phone: | [address] | | | | | | [phone] | Phone: | | | | | | Fax: | [phone] | | | | | | [phone] | Fax: | | | | | | | [phone] | +--------+--------+ + + + + Encounter Details +--------+---------+ + + + | Date | Type | Department | Care Team | Description | +--------+---------+ + + + | 08/13/ | Office | [facility] | Jared Mcdonough, | Chronic obstructive | | 2017 | Visit | MED CTR CARDIAC | [address] | pulmonary disease, | | | | REHABILITATION [address] [place], | unspecified COPD | | | | [address] [place] | [place] [address] | type (HCC) (Primary | | | | [place] [address] | [phone] | Dx) | | | | [phone] | | | +--------+---------+ + + + [...] of this encounter Progress Nima Plunkett-Tricia Crawley, ADZING AND BORING MACHINE OPERATOR - 08/13/2016 10:15 AM PDTPatient tolerated exercise [...] [place] | | | | | | [id number] | | | | | | | | +--------+---------+ + + + | 11/24/ | Office | Cardiology | [place], | | | 2019 | Visit | | SINDHU Erickson [address] | | | | | | [place] | | | | | | [place] [address] | | | | | | [phone] | | | | | | | | +--------+---------+ + + + | 03/01/ | Office | Pulmonology | Mukul Clark MD | | | 2020 | Visit | | [address] | | | | | | [place] | | | | | | [address] | | | | | | | | +--------+---------+ + + + documented as of this encounter Visit Diagnoses + + | Diagnosis | + + | Chronic obstructive pulmonary disease, unspecified COPD type (HCC) - Primary | + + documented in this encounter"
--- OUTSIDE RECORDS SUMMARY | ~2019-09-27 | XMS | Encounter Summary ---
Demographics + + + | Address | [address] | | | [place] [address] | + + + | Home Phone [...] Providers + +------+ + | Care Mechanical Shovel Operator Name | Role | Phone [...] + + | 07/24/ | Telephone | [facility] | Meghan Garcia MD | Treatment Plans | | 2019 | | SLEEP DISORDER [address] | [address] | | | | | [address] [place] [place] | [place] | | | | | [place] [address] | [address] | | | | | [phone] | | | +--------+ + + + [...] apnea. She has history of CPAP into [facility]. titration study on April 28, 2018 [...] sleep apnea). I sohail mark called the [facility], and Van checked her machine and download [...] is going to take her machine to [facility] on July 27, and they will send [...] [place] | | | | | | [id number] | | | | | | | | +--------+---------+ + + + | 11/24/ | Office | Cardiology | [place], | | | 2019 | Visit | | SINDHU Erickson [address] | | | | | | [place], | | | | | | [place] [address] | | | | | | [phone] | | | | | | | | +--------+---------+ + + + | 03/01/ | Office | Pulmonology | Mukul Clark MD | | | 2020 | Visit | | [address] | | | | | | [place] | | | | | | [id number] | | | | | | | | +--------+---------+ + + + documented as of this encounter Visit Diagnoses Not on filedocumented in this encounter"
--- OUTSIDE RECORDS SUMMARY | ~2019-09-27 | XMS | Encounter Summary ---
Demographics + + + | Address | [address] | | | [place] [address] | + + + | Home Phone [...] Team Providers + +------+ + | Care Conventions Assistant Name | Role | Phone | [...] [place] | | | | | [address] | [place] [address] | | | | | [phone] | [phone] | | | | | | | [...] to her pharmacy until she is seen? [facility] onically signed by Nancy Dalal CMA at [...] [place] | | | | | | [address] | | | | | | | | +--------+---------+ + + + | 11/24/ | Office | Cardiology | [place], | | | 2019 | Visit | | SINDHU Erickson [address] | | | | | | [place], | | | | | | [place] [address] | | | | | | [phone] | | | | | | | | +--------+---------+ + + + | 03/01/ | Office | Pulmonology | Mukul Clark MD | | | 2020 | Visit | | [address] | | | | | | [place] | | | | | | [address] | | | | | | | | +--------+---------+ + + + documented as of this encounter Visit Diagnoses Not on filedocumented in this encounter"
--- OUTSIDE RECORDS SUMMARY | ~2019-09-27 | XMS | Encounter Summary ---
Demographics + + + | Address | [address] | | | [place] [address] | + + + | Home Phone [...] Providers + +------+ + | Care Microsoft Dynamics Consultant Name | Role | Phone | + +------+ + PCP | Unavailable | + +------+ + Encounter Details +--------+ + + + + | Date | Type | Department | Care Team | Description | +--------+ + + + + | 11/01/ | [facility] | [facility] | | | | 2008 | Encounter | MED CTR XRAY [address] | | | | | | [place] | | | | | | [place] [address] | | | | | | [phone] | | | +--------+ + + + [...] [place] | | | | | | [id number] | | | | | | | | +--------+---------+ + + + | 11/24/ | Office | Cardiology | [place], | | | 2019 | Visit | | SINDHU Erickson [address] | | | | | | [place] | | | | | | [place] [address] | | | | | | [phone] | | | | | | | | +--------+---------+ + + + | 03/01/ | Office | Pulmonology | Mukul Clark MD | | | 2020 | Visit | | [address] | | | | | | [place] | | | | | | [address] | | | | | | | | +--------+---------+ + + + documented as of this encounter Visit Diagnoses Not on filedocumented in this encounter"
--- OUTSIDE RECORDS SUMMARY | ~2019-09-27 | XMS | Encounter Summary ---
Demographics + + + | Address | [address] | | | [place] [address] | + + + | Home Phone [...] Providers + +------+ + | Care Naturopathic Physician Name | Role | Phone | [...] | | | | | | [place] [address] | | | | | | [phone] | | | +--------+ + + + [...] Encounter - Ana Laura Ernandez RN - 12/29/2012 1:33 PM PSTCalled patient [...] | | | | | | [place] [address] | | | | | | [phone] | | | | | | | [...]
--- OUTSIDE RECORDS SUMMARY | ~2019-09-27 | XMS | Encounter Summary ---
Demographics + + + | Address | [address] | | | [place] [address] | + + + | Home Phone [...] Team Providers + +------+ + | Care Prevocational/Rehabilitation Counselor Name | Role | Phone | [...] sleep | MD [address] | | | | | apnea) | [address] | [place], | | | | | Central | [place], | [place] [address] | | | | | sleep apnea | [place] [address] | Phone: | | | | | | | [phone] | | | | | | | Fax: | | | | | | | [phone] | +--------+ + + + + + Reason for Visit + + + | Reason | Comments | + + + | Follow-up | | + + + Encounter Details +--------+---------+ + + + | Date | Type | Department | Care Team | Description | +--------+---------+ + + + | 03/26/ | Office | [facility] | Offenstein, | GARRY (obstructive | | 2012 | Visit | PULMONARY [address] | Loreta Alonso MD | sleep apnea) | | | | [address] [place], | | (Primary Dx); | | | | [place] [address] | | Central sleep apnea; | | | | [phone] | | COPD exacerbation | | | [...] not cancer Colonoscopy 03/2010 Colonoscopy: [facility] at [facility] Social History: History Social History Marital Status: Single Spouse Name: N/A Number of Children: 1 Years of Education: 13 Occupational History [employer] Social History Main Topics Smoking status: [...] supraclavicular nodes normal Neurologic: Gait normal Dates: 02/25/12-1/30/13 Baseline AHI: 47.1 CPAP Pressure: 8-12 cmH2O [...] | | | | | | [place] [address] | | | | | | [phone] | | | | | | | | +--------+---------+ + + + | 03/01/ | Office | Pulmonology | Mukul Clark MD | | | 2020 | Visit | | [address] | | | | | | [place] | | | | | | [address] | | | | | | | | +--------+---------+ + + + + + +--------+ + + | Name | Type | Priori | Associated Diagnoses | Order Schedule | | | | ty | | | + + +--------+ + + | Ambulatory Referral | Outpatient | Routin | GARRY (obstructive | 1 Occurrences | | to [...]
--- OUTSIDE RECORDS SUMMARY | ~2019-09-27 | XMS | Encounter Summary ---
Demographics + + + | Address | [address] | | | [place] [address] | + + + | Home Phone [...] + + | 05/30/ | Office | [facility] | Guru Henao | Acute pain of right | | 2018 | Visit | CARE [address] | MD Aleyda [address] | wrist (Primary Dx); | | | | [place] | [place] | Osteoarthritis of | | | | [address] | [address] | first | | | | [phone] | | carpometacarpal | | | | [...] thumb and fingers, unscrew a jar lid, residential mortgage manager an object, or turn a door handle or a mccallum. You may find yourself dropping things. Weather may also make the thumb sage t. The joint may swell. With time the thumb may become stiff or deformed. Date Last Reviewed: 06/24/201619996349-1596 [employer]. [address] [place] [address]. All [facility] ts reserved. This information is not intended as a substitute for professional medical care. Always follow your healthcare professional's instructions. documented in this encounter Progress Notes Jayce Ya, Access Manager - 05/30/2017 8:15 AM PDTVerified name and [...] upon leaving the clinic. David Ya CMA Sharon ross, Guru Maynard MD - 05/30/2017 8:15 AM PDTFormatting of [...] persistent, new or progressive associated symptoms. Guru Hensley documented in th is encounter Plan of [...] [place] | | | | | | [address] | | | | | | | | +--------+---------+ + + + | 11/24/ | Office | Cardiology | [place], | | | 2019 | Visit | | SINDHU Erickson [address] | | | | | | [place] | | | | | | [place] [address] | | | | | | [phone] | | | | | | | | +--------+---------+ + + + | 03/01/ | Office | Pulmonology | Mukul Clark MD | | | 2020 | Visit | | [address] | | | | | | [place] | | | | | | [address] | | | | | | | | +--------+---------+ + + + documented as of this encounter Visit Diagnoses + + | Diagnosis | + + | Acute pain of right wrist - Primary | + + | Osteoarthritis of first carpometacarpal (CMC) joint of one hand | + + documented in this encounter
--- OUTSIDE RECORDS SUMMARY | ~2019-09-27 | XMS | Encounter Summary ---
Demographics + + + | Address | [address] | | | [place] [address] | + + + | Home Phone [...] Providers + +------+ + | Care Sales Representative [employer] Furniture Name | Role | Phone | + [...] | | NEW/URINARY | [place] | [place], | | | | | URGENCY/JUST | [place], [place] | [place] [address] | | | | | [facility] | [address] | Phone: | | | | | Procedures | Phone: | [phone] | | | | | OFFICE | [phone] | Fax: | | | | | VISIT | Fax: | [phone] | | | | | | [phone] | | +--------+--------+ + + + + Encounter Details +--------+---------+ + + + | Date | Type | Department | Care Team | Description | +--------+---------+ + + + | 06/13/ | Office | [facility] | Andriy Weber | Urinary urgency | | 2016 | Visit | [address] | MD [address] | (Primary Dx) | | | | [place] | [place] | | | | | [address] | [place] [address] | | | | | [phone] | [phone] | | | | | | | [...] includes a vaginal hysterectomy without bladder elevation амрия russell at age 31. And she does [...] Need 99 months. Please send order to [facility]. 1 each 0 Respiratory Therapy Supplies [...] have not thoroughly proofread this note, and mirror installer erro rs may occur. documented in th [...] [place] | | | | | | 6[address]202 | | | | | | | | +--------+---------+ + + + | 11/24/ | Office | Cardiology | [place], | | | 2019 | Visit | | SINDHU Erickson [address] | | | | | | [place], | | | | | | [place] [address] | | | | | | [phone] | | | | | | | | +--------+---------+ + + + | 03/01/ | Office | Pulmonology | Mukul Clark MD | | | 2020 | Visit | | [address] | | | | | | [place] | | | | | | [id number] | | | | | | | [...] 1.001 - 1.030 | | | | [place], | | | | | | [facility], [...]
--- OUTSIDE RECORDS SUMMARY | ~2019-09-27 | XMS | Encounter Summary ---
Demographics + + + | Address | [address] | | | [place] [address] | + + + | Home Phone [...] + +------+ + | Care Assistant Professor Sculpture Name | Role | Phone | + [...] + | 06/23/ | Office | [facility] | Shashi Segovia | Other migraine | | 2015 | Visit | NEUROLOGY ADRIANA | MD Miryam Need updated | without status | | | | [address] [facility], | address | migrainosus, not | | | | [address] [place] | | intractable (Primary | | | | [place] [address] | | Dx); Pituitary | | | | [phone] | | adenoma (HCC); GARRY | | [...] pauses than usual Unable to awaken Seizure 4703-[address] [employer]. [address] [place] [address]. All righ ts reserved. This information is not intended as a substitute for professional medical care. Always follow your healthcare professional's instructions. documented in this encounter Progress Notes Shashi Segovia MD - 06/23/2014 8:20 AM PDTFormatting of this note might be differen t from the original. Shashi Segovia MD [address] [place] [address], [address] [place] [address] Neurology Outpatient ProgressNote Patient ID: Ms. Malik [...] within her pituitary. She recently saw an spud grader who noted he r visual acuity changed, [...] an upcoming appointment with endocrin ology at [facility]. Past Medical History: Past Medical History [...] [facility] 10/28/2012 Overview: Managed by [facility] along with hypothyroidism Osteoarthritis Tachycardia [...] to [facility]. Respiratory Therapy Supplies MISC (Taking) Change CPAP back to 11-14 cm H2O. All necessar y supplies. No oxygen bleed in. Diagnosis Code(s)327.23. Length of Need: Lifetime. Please se nd order to [facility]. This is not [...] of 10 mL of Gadavist. Dedicated small ihlge-iw-fnak thin section imaging through the pituitary region [...] as needed. Discussed my upcoming departure from [place]. If charis valderrama has issues before August [...] [place] | | | | | | [id number] | | | | | | | | +--------+---------+ + + + | 11/24/ | Office | Cardiology | [place], | | | 2019 | Visit | | SINDHU Erickson [address] | | | | | | [place], | | | | | | [place] [address] | | | | | | [phone] | | | | | | | | +--------+---------+ + + + | 03/01/ | Office | Pulmonology | Mukul Clark MD | | | 2020 | Visit | | [address] | | | | | | [place] | | | | | | [id number] | | | | | | | | +--------+---------+ + + + documented as of this encounter Visit Diagnoses + + | Diagnosis | + + | Other migraine without status migrainosus, not intractable - Primary | + + | Pituitary adenoma (HCC) Benign neoplasm of pituitary gland and craniopharyngeal duct | | (pouch) | + + | AGRRY on CPAP Obstructive sleep apnea (adult) (pediatric) | + + documented in this encounter
--- OUTSIDE RECORDS SUMMARY | ~2019-09-27 | XMS | Encounter Summary ---
Demographics + + + | Address | [address] | | | [place] [address] | + + + | Home Phone [...] Providers + +------+ + | Care Digital Product Manager Name | Role | Phone | [...] | with brief | [address] | [address] | | | | n | loss of | [address] | [place], | | | | | consciousnes | [place], | [place] [address] | | | | | s | [place] [address] | Phone: | | | | | Post-concuss | Phone: | [phone] | | | | | ion vertigo | [phone] | Fax: | | | | | [phone] | Fax: | [phone] | | | | | (ICD-10-CM) | [phone] | | | | | | - [...] + + | 06/18/ | Office | [facility] | Aaron Rodriguez, | Dizziness (Primary | | 2017 | Visit | MED CTR THERAPY PT | MD [address] | Dx); Impaired | | | | OP [address] | [place] | mobility and | | | | [place] | [phone] | activities of daily | | | | [address] | | living; Concussion | | | | [phone] | Lakeshia Cleary, PT | with brief (less | | | | | [address] | than one hour) loss | | | | | [place] | of consciousness; | | | | | [address] | Intractable acute | | | | [...] be different from t he original. [facility] CTR THERAPY PT OP [address] [place] [address] Physical Therapy Daily Treatment Note Date: 06/18/2016 [...] Precautions Office Visit from 05/01/[address] [facility] CTR THERAPY PT OP Rehab [...] [place] | | | | | | [address] | | | | | | | | +--------+---------+ + + + | 11/24/ | Office | Cardiology | Flores, | | | 2019 | Visit | | SINDHU Erickson [address] | | | | | | [place], | | | | | | [place] [address] | | | | | | [phone] | | | | | | | | +--------+---------+ + + + | 03/01/ | Office | Pulmonology | Mukul Clark MD | | | 2020 | Visit | | [address] | | | | | | [place] | | | | | | [address] | | | | | | | [...]
--- OUTSIDE RECORDS SUMMARY | ~2019-09-27 | XMS | Encounter Summary ---
Demographics + + + | Address | [address] | | | [place] [address] | + + + | Home Phone [...] Team Providers + +------+ + | Care French Weaver Name | Role | Phone | [...] | | | | | pulmonary | [address] | [address] | | | | | disease, | [place], | [place], [place] | | | | | unspecified | [place] [address] | [address] | | | | | COPD type | Phone: | Phone: | | | | | ([facility]) | [phone] | [phone] | | | | | | Fax: | Fax: | | | | | | [phone] | [phone] | +--------+ + + + + + Encounter Details +--------+ + + + + | Date | Type | Department | Care Team | Description | +--------+ + + + + | 02/03/ | Orders Only | [facility] [place] | Jared Mcdonough, | Chronic obstructive | | 2015 | | CARDIOLOGY [address] | [address] | pulmonary disease, | | | | [address], | [place], | unspecified [place] | | | | [place] [address] | [place] [address] | type (HCC) (Primary | | | | [phone] | [phone] | Dx) | | | | | [...] | | | | | | [place] [address] | | | | | | [phone] | | | | | | | | +--------+---------+ + + + | 03/01/ | Office | Pulmonology | Mukul Clark MD | | | 2020 | Visit | | [address] | | | | | | [place] | | | | | | [address] | | | | | | | | +--------+---------+ + + + + + +--------+ + + | Name | Type | Priori | Associated Diagnoses | Order Schedule | | | | ty | | | + + +--------+ + + | AMB REFERRAL TO [facility] | Outpatient | Routin | Chronic [...]
--- OUTSIDE RECORDS SUMMARY | ~2019-09-27 | XMS | Encounter Summary ---
Demographics + + + | Address | [address] | | | [place] [address] | + + + | Home Phone [...] + + | 10/19/ | Hospital | [facility] | Kevin Sandoval, | COPD (chronic | | 2013 | Encounter | MED CTR PULMONARY | MD [address] | obstructive | | | | FUNCTION [address] | [place], [place] | pulmonary disease) | | | | [place], | [address] | (HCC) | | | | [place] [address] | | | | | | [phone] | | | +--------+ + + + [...] tab | | | | | | (HCC) | every 3 days | | | [...] documented as of this encounter Procedure Notes TRINITY WATKINS - 10/19/2013 12:00 AM PDTAssociated Order(s): DIAGNOSTIC REPORT - [...] | | | | | [place], [place] | | | | | | [address] | | | | | | | | +--------+---------+ + + + | 11/24/ | Office | Cardiology | [place], | | | 2019 | Visit | | SINDHU Erickson [address] | | | | | | [place], | | | | | | [place] [address] | | | | | | [phone] | | | | | | | | +--------+---------+ + + + | 03/01/ | Office | Pulmonology | Mukul Clark MD | | | 2020 | Visit | | [address] | | | | | | [place] | | | | | | [address] | | | | | | | [...]
--- OUTSIDE RECORDS SUMMARY | ~2019-09-27 | XMS | Encounter Summary ---
Demographics + + + | Address | [address] | | | [place] [address] | + + + | Home Phone [...] Team Providers + +------+ + | Care Forms Analysis Manager Name | Role | Phone [...] Headache | Shashi Witt, | [address] | | | | | Pituitary | MD Need | [place], | | | | | tumor | updated | [place] | | | | | Procedures | address | [address] | | | | | CT Head w wo | | Phone: | | | | | Contrast | | [phone] | | | | | | | Fax: | | | | | | | [phone] | +--------+--------+ + + + + Reason [...] + | 11/24/ | Telephone | [facility] | Aneta Rain | Other (Schedule MRI) | | 2013 | | NEUROLOGY ADRIANA | N, RN | | | | | [address], | | | | | | [address] [place] | | | | | | [place] [address] | | | | | | [phone] | | | +--------+ + + + [...] not willing to remove them because it neveah l take so long and the hole [...] it on hold. Thanks elephone Encounter - Aenta Rain RN - 11/24/2013 9:59 AM PDTCalled [...] [place] | | | | | | [address] | | | | | | | | +--------+---------+ + + + | 11/24/ | Office | Cardiology | [place], | | | 2019 | Visit | | SINDHU Erickson [address] | | | | | | [place], | | | | | | [place] [address] | | | | | | [phone] | | | | | | | | +--------+---------+ + + + | 03/01/ | Office | Pulmonology | Mukul Clark MD | | | 2020 | Visit | | [address] | | | | | | [place] | | | | | | [address] | | | | | | | [...] + | MISCELLANEOUS LAB | | | [phone] | + +---------+ + + | MISCELANIOUS LAB | | | [phone] | + +---------+ + + documented in this encounter Visit Diagnoses + + | Diagnosis | + + | Headache - Primary | + + | 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
--- OUTSIDE RECORDS SUMMARY | ~2019-09-27 | XMS | Encounter Summary ---
Demographics + + + | Address | [address] | | | [place] [address] | + + + | Home Phone [...] Team Providers + +------+ + | Care Act Tutor Name | Role | Phone | + +------+ + | Juan Cherry DO | PCP | | + +------+ + Encounter Details +--------+ + + + + | Date | Type | Department | Care Team | Description | +--------+ + + + + | 09/09/ | Hospital | [facility] [place] [place] [facility] | Conversion | Pain | | 2015 | Encounter | CONVERSION [address] | Transaction, | | | | | [address] | Provider Unknown | | | | | [place], [place] | [phone] | | | | | [address] | | | | | | [phone] | | | +--------+ + + + [...] | | | | | order to [facility]. | | | | | + [...] [place] | | | | | | [address] | | | | | | | | +--------+---------+ + + + | 11/24/ | Office | Cardiology | Flores, | | | 2019 | Visit | | SINDHU Erickson [address] | | | | | | [place] | | | | | | [place] [address] | | | | | | [phone] | | | | | | | | +--------+---------+ + + + | 03/01/ | Office | Pulmonology | Mukul Clark MD | | | 2020 | Visit | | [address] | | | | | | [place] | | | | | | [address] | | | | | | | [...]
--- OUTSIDE RECORDS SUMMARY | ~2019-09-27 | XMS | Encounter Summary ---
Demographics + + + | Address | [address] | | | [place] [address] | + + + | Home Phone [...] Providers + +------+ + | Care Automotive Teacher Name | Role | Phone | + +------+ + PCP | Unavailable | + +------+ + Encounter Details +--------+ + + + + | Date | Type | Department | Care Team | Description | +--------+ + + + + | 09/22/ | Hospital | [facility] | Rocky Rodriguez | | | 2008 | Encounter | MED CTR EMERGENCY | MD Kyler [address] | | | | | CENTER [address] | [address] [facility] | | | | | [place], [place] | [place] [address] | | | | | [address] | [phone] | | | | | [phone] | | | +--------+ + + + [...] | | | | | | [place] [address] | | | | | | [phone] | | | | | | | | +--------+---------+ + + + | 03/01/ | Office | Pulmonology | Mukul Clark MD | | | 2020 | Visit | | [address] | | | | | | [place] | | | | | | [address] | | | | | | | | +--------+---------+ + + + documented as of this encounter Visit Diagnoses Not on filedocumented in this encounter"
--- OUTSIDE RECORDS SUMMARY | ~2019-09-27 | XMS | Encounter Summary ---
Demographics + + + | Address | [address] | | | [place] [address] | + + + | Home Phone [...] Providers + +------+ + | Care Rehabilitation Aide Name | Role | Phone | + +------+ + | Juan Cherry DO | PCP | | + +------+ + Encounter Details +--------+ + + + + | Date | Type | Department | Care Team | Description | +--------+ + + + + | 09/20/ | Orders Only | [facility] | Provider, | | | 2018 | | SYSTEM GENERIC OP | MD [address] | | | | | CONVERSION [address] | [place]. | | | | | [address] [place], [place] | [place] [address] | | | | | [address] | | | | | | [phone] | | | +--------+ + + + [...] [place] | | | | | | [id number] | | | | | | | | +--------+---------+ + + + | 11/24/ | Office | Cardiology | [place], | | | 2019 | Visit | | SINDHU Erickson [address] | | | | | | [place] | | | | | | [place] [address] | | | | | | [phone] | | | | | | | | +--------+---------+ + + + | 03/01/ | Office | Pulmonology | Mukul Clark MD | | | 2020 | Visit | | [address] | | | | | | [place] | | | | | | [address] | | | | | | | | +--------+---------+ + + + documented as of this encounter Visit Diagnoses Not on filedocumented in this encounter"
--- OUTSIDE RECORDS SUMMARY | ~2019-09-27 | XMS | Encounter Summary ---
Demographics + + + | Address | [address] | | | [place] [address] | + + + | Home Phone [...] Team Providers + +------+ + | Care Medicare Sales Executive Name | Role | Phone | [...] + + | 05/19/ | Office | [facility] | Brian Miranda | Sprain of chest wall | | 2013 | Visit | MED CTR THERAPY PT | MD Ozzy Need | (Primary Dx) | | | | OP [address] | updated address | | | | | [place] | [place], | | | | | [address] | NEWS WIRE PHOTO OPERATOR [address] | | | | | [phone] | [place] | | | | | | [address] | | | | | | [phone] | | | | | | | [...] of this encounter Progress Notes Janey Low, NEWS WIRE PHOTO OPERATOR - 05/19/2013 1:38 PM PDTFormatting of this note might be different f rom the original. [facility] CTR THERAPY PT OP [address] [place] [address] Physical Therapy Daily Treatment Note Date: 05/19/2013 [...] [place] | | | | | | [address] | | | | | | | | +--------+---------+ + + + | 11/24/ | Office | Cardiology | [place], | | | 2019 | Visit | | SINDHU Erickson [address] | | | | | | [place], | | | | | | [place] [address] | | | | | | [phone] | | | | | | | | +--------+---------+ + + + | 03/01/ | Office | Pulmonology | Mukul Clark MD | | | 2020 | Visit | | [address] | | | | | | [place] | | | | | | [address] | | | | | | | | +--------+---------+ + + + documented as of this encounter Visit Diagnoses + + | Diagnosis | + + | Sprain of chest wall - Primary Other specified sites of sprains and strains | + + documented in this encounter
--- OUTSIDE RECORDS SUMMARY | ~2019-09-27 | XMS | Encounter Summary ---
Demographics + + + | Address | [address] | | | [place] [address] | + + + | Home Phone [...] + +------+ + | Care Pipe Line Repairer Name | Role | Phone | [...] | esophagitis | [address] | [place] | | | | | presence not | [place], [place] | [place], | | | | | specified | [address] | [place] [address] | | | | | Procedures | Phone: | Phone: | | | | | [place] Gastric | [phone] | [phone] | | | | | Emptying | Fax: | Fax: | | | | | | [phone] | [phone] | +--------+--------+ + + + + Encounter Details +--------+ + + + + | Date | Type | Department | Care Team | Description | +--------+ + + + + | 04/02/ | Hospital | [facility] | Dio Yun | | | 2017 | Encounter | MED CTR NUCLEAR | MD [address] | | | | | MEDICINE [address] | [place] [address] | | | | | [place], | [place], [place] | | | | | [place] [address] | [address] | | | | | [phone] | [phone] | | | | | | | [...] | 0 | 10/13/19 | | | Lamojjblic-UBEL-Glhw | mouth as needed. | | | 16 | 7 | | -Cod [id number] MG | | | | | | [...] | | | | | | [place] [address] | | | | | | [phone] | | | | | | | | +--------+---------+ + + + | 03/01/ | Office | Pulmonology | Mukul Clark MD | | | 2020 | Visit | | [address] | | | | | | [place] | | | | | | [address] | | | | | | | [...] Mcbride Results In - 04/02/2016 11:38 AM [facility] NUCLEAR GASTRIC EMPTYING STUDY 04/02/2016 | [...]
--- OUTSIDE RECORDS SUMMARY | ~2019-09-27 | XMS | Encounter Summary ---
Demographics + + + | Address | [address] | | | [place] [address] | + + + | Home Phone [...] + + | 04/14/ | Office | [facility] [place] | Brian Miranda | Sprain of chest wall | | 2013 | Visit | OCCUPATIONAL HEALTH | MD Ozzy Need | (Primary Dx); Place | | | | [place] [address] | updated address | of occurrence, | | | | [address] [address] [place] | | industrial places | | | | [place] | | and premises | | | | [address] | | | | | | [phone] | | | +--------+---------+ + + + [...] MD - 04/14/2013 11:10 AM PSTSee dictation [id number] lisha d by Brian Miranda MD at 04/14/2013 11:11 AM Brian Avendano MD - 04/14/19 14 12:00 AM [facility] OCCUPATIONAL MEDICINE [address] [place] [address] FAX: [phone] OFFICE VISIT Claim Number: [id number] Date of Injury: 04/05/2013 Employer: [employer] [...] lungs were clear on auscultation and sh drew was able to take a reasonably good [...] injury. She is not MMI status. Srinath Ozzy Miranda MD / AF JOB #: [id number] signed by Brian Miranda MD at 04/15/2013 5:32 PM PSTd ocumented in this encounter Miscellaneous Notes Plan of Care - [facility] - 04/15/2013 12:00 AM PST lan of Care - [facility] - 04/14/2013 12:00 AM PSTElect ronically signed by Rolando Pozo at 04/19/2013 1:05 PM PSTdocumented in this encounter Plan of [...] | | | | | | [place] [address] | | | | | | [phone] | | | | | | | | +--------+---------+ + + + | 03/01/ | Office | Pulmonology | Mukul Clark MD | | | 2020 | Visit | | [address] | | | | | | [place] | | | | | | [id number] | | | | | | | [...]
--- OUTSIDE RECORDS SUMMARY | ~2019-09-27 | XMS | Encounter Summary ---
Demographics + + + | Address | [address] | | | [place] [address] | + + + | Home Phone [...] Providers + +------+ + | Care Supervisor Pit And Auxiliaries Name | Role | Phone | + [...] + + | 05/30/ | Office | [facility] | Jamaledgardo Jared, | Chronic obstructive | | 2017 | Visit | MED CTR CARDIAC | MD Migdalia King | pulmonary disease, | | | | REHABILITATION [address] | [place], | unspecified COPD | | | | [address] [place] | [place] [address] | type (HCC) (Primary | | | | [place] [address] | [phone] | Dx); Pulmonary | | | | [phone] | | emphysema, | | | | [...] of this encounter Progress Desean Wheeler - 05/30/2016 3:38 PM PDT [facility] CARDIAC REHABILITATION [address] [place] [address] Cardiac Rehab Date: 05/30/2016 Patient Information Patient [...] [place] | | | | | | [address] | | | | | | | | +--------+---------+ + + + | 11/24/ | Office | Cardiology | [place], | | | 2019 | Visit | | SINDHU Erickson [address] | | | | | | [place] | | | | | | [place] [address] | | | | | | [phone] | | | | | | | | +--------+---------+ + + + | 03/01/ | Office | Pulmonology | Mukul Clark MD | | | 2020 | Visit | | [address] | | | | | | [place] | | | | | | [address] | | | | | | | | +--------+---------+ + + + documented as of this encounter Visit Diagnoses + + | Diagnosis | + + | Chronic obstructive pulmonary disease, unspecified COPD type (HCC) - Primary | + + | Pulmonary emphysema, unspecified emphysema type (HCC) | + + documented in this encounter"
--- OUTSIDE RECORDS SUMMARY | ~2019-09-27 | XMS | Encounter Summary ---
Demographics + + + | Address | [address] | | | [place] [address] | + + + | Home Phone [...] Providers + +------+ + | Care Community Health Consultant Name | Role | Phone | + +------+ + | Juan Cherry DO | PCP | | + +------+ + Reason for Visit +--------+--------+ + | Reason | Onset | Comments | | | Date | | +--------+--------+ + | Other | 04/03/ | referral to local company truck driver or dietian | | | 2016 | | +--------+--------+ + Encounter Details +--------+ + + + + | Date | Type | Department | Care Team | Description | +--------+ + + + + | 04/03/ | Telephone | [facility] | [place], | Other (referral to | | 2016 | | CARDIOLOGY [address] | SINDHU Erickson [address] | local company truck driver or | | | | [place] [place], | [place], | dietian) | | | | [place] [address] | [place] [address] | | | | | [phone] | [phone] | | | | | | | [...] Notes Telephone Encounter - Radha Olvera - 04/04/2016 1:10 PM PSTReferral created. See referra l #[id number] for updates. ele phone Encounter - Nilda Escalona RN - 04/04/2016 10:15 AM Koko called to report th at [facility] is a unit trust manager for mommies and babies. She would now like to go see the provider at the [facility]. That one is [address]; they request that we put in a referral and send records. Patient is aware. I will ask PSR's to please enter the referral as mentioned bel ow but send to Abena [address] at [facility] instead. Thanks .................................... .......Nilda Escalona RN on 04/04/16 at 10:21 elephone Encounter - Nilda Escalona RN - 04/04/2016 9:26 AM Koko is notified, she does not have any one in mind. A Google search brought up one on [address] and one at [facility]. Rosario would p refer not to see someone at [facility]. She is given the number for the one on [address]. I will als o ask PSR's to please put in a referral and send records as needed for patient to see Carter Araiza RD at [address], phone [phone], diagnosis of obesity, need for diet and we ight management, patient is not diabetic. Thanks ........................................... Nilda Escalona RN on 04/04/16 at 9:31 elephone Encounter - Georgina Tanner ARNP - 04/03/2016 4:56 PM PSTSure, can we refer her to a Nutritionis t for diet and weight management, she is not a diabetic. Thanks Shamekaectronically signed by SINDHU Vang at 04/03/2016 4:57 PM PSTTelephone Encounter - Nilda Escalona RN - 04/03/2016 9:43 AM PSTGretchen called to see if Georgina thorneld be willing to refer her to either a local company truck driver or unit trust manager to help her out with her weight loss plan. I will consult Georgina and then let her know ............................. ..............Nilda Escalona RN on 04/03/16 at 9:44 documented in this encounter Plan of Treatment [...] | | | | | | [place] [address] | | | | | | [phone] | | | | | | | | +--------+---------+ + + + | 03/01/ | Office | Pulmonology | Mukul Clark MD | | | 2020 | Visit | | [address] | | | | | | [place] | | | | | | [address] | | | | | | | | +--------+---------+ + + + documented as of this encounter Visit Diagnoses Not on filedocumented in this encounter"
--- OUTSIDE RECORDS SUMMARY | ~2019-09-27 | XMS | Encounter Summary ---
Demographics + + + | Address | [address] | | | [place] [address] | + + + | Home Phone [...] Team Providers + +------+ + | Care Coding Consultant Name | Role | Phone | + +------+ + | Juan Cherry DO | PCP | | + +------+ + Reason for Visit +--------+--------+ + | Reason | Onset | Comments | | | Date | | +--------+--------+ + | Other | 08/15/ | new issues | | | 2015 | | +--------+--------+ + Encounter Details +--------+ + + + + | Date | Type | Department | Care Team | Description | +--------+ + + + + | 08/15/ | Telephone | [facility] | Jared Mcdonough, | Other (new issues) | | 2014 | | [address] [place] | | | | | [place], | [place], | | | | | [place] [address] | [place] [address] | | | | | [phone] | [phone] | | | | | | | [...] Telephone Encounter - Nilda Escalona RN - 08/15/2014 4:50 PM Denisseetchen called to see if her appointment with Dr Sanchez could be moved up sooner. She has had an episode of her hear t racing and she actually fainted. She has seen PCP and he put her on a medication that mad e her very ill. She would like to be seen as soon as possible. This will be arranged for he dinah Perez..........................................Nilda Escalona RN on 08/15/2014 at 16:51 documented in this encounter Plan of Treatment [...] [place] | | | | | | [address] | | | | | | | | +--------+---------+ + + + | 11/24/ | Office | Cardiology | [place], | | | 2019 | Visit | | SINDHU Erickson [address] | | | | | | [place] | | | | | | [place] [address] | | | | | | [phone] | | | | | | | | +--------+---------+ + + + | 03/01/ | Office | Pulmonology | Mukul Clark MD | | | 2020 | Visit | | [address] | | | | | | [place] | | | | | | [address] | | | | | | | | +--------+---------+ + + + documented as of this encounter Visit Diagnoses Not on filedocumented in this encounter"
--- OUTSIDE RECORDS SUMMARY | ~2019-09-27 | XMS | Encounter Summary ---
Demographics + + + | Address | [address] | | | [place] [address] | + + + | Home Phone [...] Team Providers + +------+ + | Care Environmental Programs Manager Name | Role | Phone | [...] | 02/22/ | Office | [facility] [place] | [place], | COPD exacerbation | | 2012 | Visit | PULMONARY [address] | Loreta Alonso MD | ([facility]) (Primary Dx); | | | | [place], | | [place] (obstructive | | | | [place] [address] | | sleep apnea); | | | | [phone] | | Central sleep apnea; | | [...] Pulmonary Follow Up Note Loreta London MD [facility] [address] [place], [address] HPI Rosario Malik is a 48 y.o. 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 [facility]piratory [facility] Please provide patient with necessary [...] Need: Lifetime. Please send orde r to [facility]. This is not a [...] Data: CPAP Data: Dates: 01/23/13 Machine type: LumicsMed S9 auto CPAP Home Health Company: [employer] CPAP Pressure: 11-14 cm H2O cmH2O Median [...] made to ensure accuracy; however, inadvertent computerized silver designer errors may be pre sent. documented in t his encounter Plan of Treatment +--------+---------+ + + + | Date | Type | Specialty | Care Team | Description | +--------+---------+ + + + | 09/27/ | Office | Sleep Medicine | Meghan Garcia MD | | | 2019 | Visit | | [address] [facility] | | | | | | [place] | | | | | | [address] | | | | | | | | +--------+---------+ + + + | 11/24/ | Office | Cardiology | [place], | | | 2019 | Visit | | SINDHU Erickson [address] | | | | | | [place] | | | | | | [place] [address] | | | | | | [phone] | | | | | | | | +--------+---------+ + + + | 03/01/ | Office | Pulmonology | Mukul Clark MD | | | 2020 | Visit | | [address] | | | | | | [place] | | | | | | [id number] | | | | | | | [...]
--- OUTSIDE RECORDS SUMMARY | ~2019-09-27 | XMS | Encounter Summary ---
Demographics + + + | Address | [address] | | | [place] [address] | + + + | Home Phone [...] Team Providers + +------+ + | Care Primer And Powder Canning Leader Name | Role | Phone | [...] [place] | | | | | [address] | [place] [address] | | | | | [phone] | [phone] | | | | | | | [...] | | | | | | [place] [address] | | | | | | [phone] | | | | | | | [...]
--- OUTSIDE RECORDS SUMMARY | ~2019-09-27 | XMS | Encounter Summary ---
Demographics + + + | Address | [address] | | | [place] [address] | + + + | Home Phone [...] Providers + +------+ + | Care Dental Technician Instructor Name | Role | Phone | + +------+ + | Juan Cherry DO | PCP | | + +------+ + Encounter Details +--------+ + + + + | Date | Type | Department | Care Team | Description | +--------+ + + + + | 04/05/ | Hospital | [facility] | Yesenia Landin | | | 2013 | Encounter | MED CTR EMERGENCY | DO Cipriano Christin TOMAS | | | | | CENTER [address] | [address] [place], [place] | | | | | [place], [place] | [address] | | | | | [address] | | | | | | [phone] | Ozzy Aponte | | | | | | Ozzie Kebede MD | | | | | | [address] | | | | | | [place], [place] | | | | | | [address] | | | | | | | [...] | | | | | | [facility]. | | | | | | [...] Ozzy Aponte MD - 04/05/2013 9:49 [place] [address] Patient Name: JADYN SCHMITZ Provider: Unit #: [id number] Location: [facility]t #: [id number] : 1965 DATE: 04/05/2013 HISTORY OF PRESENT ILLNESS: This is a 48-year-old who presents to the emergency room after lifting a patient at a half-way. She felt a pop in her chest. [...] Ozzy Aponte MD Emergency Medicine JOB #: [id number] EXT JOB #:[id number] <<Signature on File>> Ozzy Aponte MD04/06/13 180 [...] [place] | | | | | | [address] | | | | | | | | +--------+---------+ + + + | 11/24/ | Office | Cardiology | [place], | | | 2019 | Visit | | SINDHU Erickson [address] | | | | | | [place] | | | | | | [place] [address] | | | | | | [phone] | | | | | | | | +--------+---------+ + + + | 03/01/ | Office | Pulmonology | Mukul Clark MD | | | 2020 | Visit | | [address] | | | | | | [place] | | | | | | [address] | | | | | | | [...] Performed At | + + + | [facility] | [place] | | Department [address] [place] | [facility] | | [ rep [address]] [ rep [facility] | | st zip] Signed | - IMAGING | | | | | Patient Name: JADYN SCHMITZ | | | Physician: MARY : 1965 Age: 48 Sex: F Unit | | | #: [id number] Exam Date: 04/05/13 Location: | | | ER Report #: [id number] Page: | | | %(RAD)RES..mtdd.print.filter("pg") of %(RAD) | | | RES..mtdd.print.filter("tpg") | | | | | | Accession Number: [id number] | | | TWO VIEWS OF THE [...] Transcribed Date/Time: 04/06/2013 | | | 08:52 Wire Drawer: <<Signature | | | on File>> | | | Aditya Alonso | | | MD Claudio04/06/13 231 <Electronically signed by Aditya Snyder MD> | | | Aditya Snyder MD 04/06/13 0845 Wire Drawer: | | | [employer] Vxhgjmodjahwr32/11/14 0852 | | + + + + + + + + | Performing | Address | City/State/Zipcode | Phone Number | | Organization | | | | + + + + + | [facility] | [address] | [place] | [phone] | | [facility] | | [address] | | | - IMAGING | | | | + + + + + XR Chest PA and Lateral (04/06/2013 8:14 AM PST) + + | Specimen | + + | | + + + + + | Narrative | Performed At | + + + | [facility] | [place] | | Department [address] , [place] | [facility] | | [ rep ct [address]] [ rep ct [facility] | | st zip] Signed | - IMAGING | | | | | Patient Name: JADYN SCHMITZ | | | Physician: MARY : 1965 Age: 48 Sex: F Unit | | | #: [id number] Exam Date: 04/05/13 Location: | | | ER Report #: [id number] Page: | | | %(RAD)RES..mtdd.print.filter("pg") of %(RAD) | | | RES..mtdd.print.filter("tpg") | | | | | | Accession Number: [id number] | | | PA AND LATERAL CHEST: [...] Transcribed Date/Time: 04/06/2013 08:17 | | | Wire Drawer: <<Signature on File>> | | | | | | Aditya Snyder MD04/06/132 <Electronically signed by Aditya Alonso | | | Claudio PAUL> Aditya Snyder MD 04/06/13 0814 | | | Wire Drawer: [employer] Nutayhdwfkqqx36/11/14 0817 | | | | | + + + + + + + + | Performing | Address | City/State/Zipcode | Phone Number | | Organization | | | | + + + + + | [facility] | [address] | [place] | [phone] | | [facility] | | [address] | | | - IMAGING | | | | + + + + + documented in this encounter Visit Diagnoses Not on filedocumented in this encounter
--- OUTSIDE RECORDS SUMMARY | ~2019-09-27 | XMS | Encounter Summary ---
Demographics + + + | Address | [address] | | | [place] [address] | + + + | Home Phone [...] Providers + +------+ + | Care Hand Profiler Name | Role | Phone | + [...] + + | 10/16/ | Office | [facility] | [place], | Tachycardia (Primary | | 2017 | Visit | CARDIOLOGY [address] | SINDHU Erickson [address] | Dx); Paroxysmal | | | | [place], | [place], | atrial tachycardia | | | | [place] [address] | [place] [address] | (HCC) | | | | [phone] | [phone] | | | | | | | [...] 2 times daily. She takes this da [facility] Respiratory Therapy Supplies [facility] Please provide patient with necessary CPAP supplies ( she did not specify, okay to send order as appropriate) Diagnosis Code(s)327.23 . Length of Need 99 months. Please send order to [facility]. 1 each 0 Respiratory Therapy Supplies [facility] Change CPAP back to 11-14 cm [...] elevation is no longer present Confirmed by RUSSELL PAUL, RAFA ([id number]) on 08/06/2015 9:42:29 AM LAB RESULTS reviewed during visit today primarily from [facility]: LIPID Lab Results Component Value Date [...] was seen at the ED of [facility] 3 weeks ago and again 1 [...] She is in a class II of [place] [employer] functional class. There is no [...] v entricular function done at the [facility]. LVEF 78%. C. Holter Monitor 08/16/13 [...] this chart may have been created with [employer] voice recognition software. Occasi onal wrong-word or [...] | | | | | | [place] [address] | | | | | | [phone] | | | | | | | | +--------+---------+ + + + | 03/01/ | Office | Pulmonology | Mukul Clark MD | | | 2020 | Visit | | [address] | | | | | | [place] | | | | | | [address] | | | | | | | [...] Juan | | | DO CAMILLE Cherry TEACHER SELECTION SPECIALIST: Clay Mcdonough MD | | | 48-HOUR [...] | | Signed by: Clay Mcdonough MD [facility] 10/18/2016, | | | 10:51 | [...] CLAY | | | | | | ([id number]) on 10/16/2016 | | | | | [...]
--- OUTSIDE RECORDS SUMMARY | ~2019-09-27 | XMS | Encounter Summary ---
Demographics + + + | Address | [address] | | | [place] [address] | + + + | Home Phone [...] Team Providers + +------+ + | Care Mattress Specialist Name | Role | Phone | + +------+ + PCP | Unavailable | + +------+ + Encounter Details +--------+ + + + + | Date | Type | Department | Care Team | Description | +--------+ + + + + | 06/26/ | [facility] | [facility] | | | | 2009 - | Encounter | MED CTR OP REHAB | | | | | | [address] [place] | | | | 07/24/ | | [place] [address] | | | | 2009 | | [phone] | | | +--------+ + + + [...] | | | | | | [place] [address] | | | | | | [phone] | | | | | | | | +--------+---------+ + + + | 03/01/ | Office | Pulmonology | Mukul Clark MD | | | 2020 | Visit | | [address] | | | | | | [place] | | | | | | [address] | | | | | | | | +--------+---------+ + + + documented as of this encounter Visit Diagnoses Not on filedocumented in this encounter"
--- OUTSIDE RECORDS SUMMARY | ~2019-09-27 | XMS | Encounter Summary ---
Demographics + + + | Address | [address] | | | [place] [address] | + + + | Home Phone [...] Team Providers + +------+ + | Care Residence Leasing Agent Name | Role | Phone | + +------+ + PCP | Unavailable | + +------+ + Encounter Details +--------+ + + + + | Date | Type | Department | Care Team | Description | +--------+ + + + + | 08/18/ | Hospital | [facility] | Lencho Goss MD | | | 2000 | Encounter | MED CTR XRAY [address] | [address] | | | | | [place] | [address] [place], [place] | | | | | [place] [address] | [address] | | | | | [phone] | | | +--------+ + + + [...] | | | | | | [place] [address] | | | | | | [phone] | | | | | | | | +--------+---------+ + + + | 03/01/ | Office | Pulmonology | Mukul Clark MD | | | 2020 | Visit | | [address] | | | | | | [place] | | | | | | [address] | | | | | | | | +--------+---------+ + + + documented as of this encounter Visit Diagnoses Not on filedocumented in this encounter"
--- OUTSIDE RECORDS SUMMARY | ~2019-09-27 | XMS | Encounter Summary ---
Demographics + + + | Address | [address] | | | [place] [address] | + + + | Home Phone [...] Team Providers + +------+ + | Care Tallow Pumper Name | Role | Phone | + [...] + + | 09/25/ | Office | [facility] | [place], | Chest pain, | | 2016 | Visit | CARDIOLOGY [address] | SINDHU Erickson [address] | unspecified type | | | | [place], | [place], | (Primary Dx); | | | | [place] [address] | [place] [address] | Paroxysmal atrial | | | | [phone] | [phone] | tachycardia (HCC); | | | | [...] Service: 09/26/2015 HISTORY OF PRESENT ILLNESS: Rosario Malki is a 50 y.o. female with a [...] schedule [facility] Holter [facility]. Since that [...] She is getting ready to go to [place] to be evaluated in [place] for a stomach/a bdominal surgery. Cardiac-garcia she [...] takes this da rigoberto Respiratory Therapy Supplies [facility] [...] today primarily from [facility]: LIPID No results found for: CHOL, [...] PLTEX 370 07/11/2014 I reviewed records from [facility] for office visit on 09/05/2015 which [...] She is in a class II of [place] [employer] functional class. There is [...] and ventricular function don e at the [facility]. LVEF 78%. [...] | | | | | | [place] [address] | | | | | | [phone] | | | | | | | | +--------+---------+ + + + | 03/01/ | Office | Pulmonology | Mukul Clark MD | | | 2020 | Visit | | [address] | | | | | | [place] | | | | | | [address] | | | | | | | | +--------+---------+ + + + documented as of this encounter Visit Diagnoses + + | Diagnosis | + + | Chest pain, unspecified type - Primary | + + | Paroxysmal atrial tachycardia (HCC) Paroxysmal supraventricular tachycardia | + + | Palpitations | + + documented in this encounter
--- OUTSIDE RECORDS SUMMARY | ~2019-09-27 | XMS | Encounter Summary ---
Demographics + + + | Address | [address] | | | [place] [address] | + + + | Home Phone [...] Team Providers + +------+ + | Care Analytical Lead Name | Role | Phone | + +------+ + | Ozzy Delcid MD | PCP | | + +------+ + Encounter Details +--------+ + + + + | Date | Type | Department | Care Team | Description | +--------+ + + + + | 10/14/ | Hospital | [facility] | [place], | | | 2011 | Encounter | MED CTR SLEEP | Loreta Alonso MD | | | | | CENTER [address] | | | | | | [place] | | | | | | [address] | | | | | | [phone] | | | +--------+ + + + [...] encounter Miscellaneous Notes Sleep Disorders - Ra eDgroot Jr., MD - 10/15/2011 8:00 PM PDTDATE: 10/15/2011 cc: [facility] Ra Degroot Jr., MD, [facility] Juan Cherry, DO RESULTS OF A DIAGNOSTIC [...] the patient scored 19 points on the Kent Sleepiness Scale which endo rses a significant [...] apnea. Ra Degroot Jr., MD, FAASM Diplomate [place] Board of Internal Medicine Diplomate in Sleep Medicine Local Company Flatbed Truck Driver, [facility] Clinical Director Life [employer] [place] [facility], [facility] JOB #: [id number] EXT JOB #:[id number] EDITED: 10/22/2011 13:04 <Electronically Signed by Ra [...] [place] | | | | | | [address] | | | | | | | | +--------+---------+ + + + | 11/24/ | Office | Cardiology | [place], | | | 2019 | Visit | | SINDHU Erickson [address] | | | | | | [place], | | | | | | [place] [address] | | | | | | [phone] | | | | | | | | +--------+---------+ + + + | 03/01/ | Office | Pulmonology | Mukul Clark MD | | | 2020 | Visit | | [address] | | | | | | [place] | | | | | | [address] | | | | | | | | +--------+---------+ + + + documented as of this encounter Visit Diagnoses Not on filedocumented in this encounter"
--- OUTSIDE RECORDS SUMMARY | ~2019-09-27 | XMS | Encounter Summary ---
Demographics + + + | Address | [address] | | | [place] [address] | + + + | Home Phone [...] Team Providers + +------+ + | Care Casting Director Name | Role | Phone | + +------+ + PCP | Unavailable | + +------+ + Encounter Details +--------+ + + + + | Date | Type | Department | Care Team | Description | +--------+ + + + + | 02/09/ | Hospital | [facility] | Alexi Guaman, | | | 2009 | Encounter | MED CTR EMERGENCY | [address] | | | | | [place] [address] [place] | [place] | | | | | [place] | [address] | | | | | [address] | | | | | | [phone] | | | +--------+ + + + [...] [place] | | | | | | [address] | | | | | | | | +--------+---------+ + + + | 11/24/ | Office | Cardiology | [place], | | | 2019 | Visit | | SINDHU Erickson [address] | | | | | | [place], | | | | | | [place] [address] | | | | | | [phone] | | | | | | | | +--------+---------+ + + + | 03/01/ | Office | Pulmonology | Mukul Clark MD | | | 2020 | Visit | | [address] | | | | | | [place] | | | | | | [address] | | | | | | | | +--------+---------+ + + + documented as of this encounter Visit Diagnoses Not on filedocumented in this encounter"
--- OUTSIDE RECORDS SUMMARY | ~2019-09-27 | XMS | Encounter Summary ---
Demographics + + + | Address | [address] | | | [place] [address] | + + + | Home Phone [...] | RN | | | | | [place], | | | | | | [place] [address] | | | | | | [phone] | | | +--------+ + + + [...] [place] | | | | | | [address] | | | | | | | | +--------+---------+ + + + | 11/24/ | Office | Cardiology | [place], | | | 2020 | Visit | | SINDHU Erickson [address] | | | | | | [place] | | | | | | [place] [address] | | | | | | [phone] | | | | | | | | +--------+---------+ + + + | 03/01/ | Office | Pulmonology | Mukul Clark MD | | | 2020 | Visit | | [address] | | | | | | [place] | | | | | | [address] | | | | | | | | +--------+---------+ + + + documented as of this encounter Visit Diagnoses Not on filedocumented in this encounter"
--- OUTSIDE RECORDS SUMMARY | ~2019-09-27 | XMS | Encounter Summary ---
Demographics + + + | Address | [address] | | | [place] [address] | + + + | Home Phone [...] Team Providers + +------+ + | Care Soil Analyst Name | Role | Phone | + +------+ + | Juan Cherry DO | PCP | | + +------+ + Reason for Visit + +--------+ + | Reason | Onset | Comments | | | Date | | + +--------+ + | Medication Problem | 05/28/ | Michelle | | | 2013 | | + +--------+ + Encounter Details +--------+--------+ + + + | Date | Type | Department | Care Team | Description | +--------+--------+ + + + | 05/28/ | Refill | [facility] | Kade Hoffman MD | Medication Problem | | 2013 | | [facility] | [address] [facility] | ([facility]) | | | | [place] [address] | [place] [address] | | | | | [address] [facility] | [phone] | | | | | [facility] [place] | | | | | | [address] | | | | | | [phone] | | | +--------+--------+ + + + [...] this encounter Miscellaneous Notes Telephone Encounter - Felicia Langford RN - 05/28/2013 10:54 AM [facility] and stated they were filling a RX for this patient and they have that her aller gies are Erythromycin and macrocytes and ketolytes. She was prescribed Azithromycin today fr om Dr. Hoffman. Per Dr. Hoffman, he spoke with the patient and she stated she has taken Azithro mycin and was fine while on it. So he wants to continue with the RX for Azithromycin for thi s patient. Tamanna verbalized an understanding of this information. documented in this encounter Plan of Treatment [...] [place] | | | | | | [address] | | | | | | | | +--------+---------+ + + + | 11/24/ | Office | Cardiology | [place], | | | 2019 | Visit | | SINDHU Erickson [address] | | | | | | [place], | | | | | | [place] [address] | | | | | | [phone] | | | | | | | | +--------+---------+ + + + | 03/01/ | Office | Pulmonology | Mukul Clark MD | | | 2020 | Visit | | [address] | | | | | | [place] | | | | | | [address] | | | | | | | | +--------+---------+ + + + documented as of this encounter Visit Diagnoses Not on filedocumented in this encounter"
--- OUTSIDE RECORDS SUMMARY | ~2019-09-27 | XMS | Encounter Summary ---
Demographics + + + | Address | [address] | | | [place] [address] | + + + | Home Phone [...] Team Providers + +------+ + | Care Brass And Wind Instrument Repairer Name | Role | Phone | + +------+ + | Juan Cherry DO | PCP | | + +------+ + Encounter Details +--------+ + + + + | Date | Type | Department | Care Team | Description | +--------+ + + + + | 11/08/ | Hospital | [facility] | Conversion | Asthma, moderate | | 2015 | Encounter | [facility] [address] | Transaction, | persistent, | | | | [address] | Provider Unknown | uncomplicated | | | | [place], [place] | [phone] | | | | | [address] | | | | | | [phone] | | | +--------+ + + + [...] | | | | send order to [facility] | | | | | | [...] [place] | | | | | | [address] | | | | | | | | +--------+---------+ + + + | 11/24/ | Office | Cardiology | [place], | | | 2019 | Visit | | SINDHU Erickson [address] | | | | | | [place], | | | | | | [place] [address] | | | | | | [phone] | | | | | | | | +--------+---------+ + + + | 03/01/ | Office | Pulmonology | Mukul Clark MD | | | 2020 | Visit | | [address] | | | | | | [place] | | | | | | [address] | | | | | | | [...] At | + + + | JADYN CSHMITZ [address] CHEST WO [...] - 10/09/2018 12:59 AM PDT JADYN Cj [id number] years | | FemaleCT CHEST WO CONTRAST11/08/2014 [...] prior distal gastroesophageal junction surgery, likely a Hcanelle fundoplication. | | | |No acute abnormality [...]
--- OUTSIDE RECORDS SUMMARY | ~2019-09-27 | XMS | Encounter Summary ---
Demographics + + + | Address | [address] | | | [place] [address] | + + + | Home Phone [...] Providers + +------+ + | Care Feed House Supervisor Name | Role | Phone | + +------+ + | Juan Cherry DO | PCP | | + +------+ + Reason for Visit + +--------+ + | Reason | Onset | Comments | | | Date | | + +--------+ + | Medication Refill | 12/17/ | | | | 2016 | | + +--------+ + Encounter Details +--------+--------+ + + + | Date | Type | Department | Care Team | Description | +--------+--------+ + + + | 12/17/ | Refill | [facility] | Andriy Weber | Medication Refill | | 2016 | | [address] | MD [address] | | | | | [place] | [place] | | | | | [address] | [place] [address] | | | | | [phone] | [phone] | | | | | | | [...] Telephone Encounter - Nancy Dalal CMA - 12/18/2015 2:19 PM PDTReceived fax request for Hydroxyzine from [facility]. Routed to Dr. Weber for consideration. documented in this encounter Plan of Treatment [...] [place] | | | | | | [id number] | | | | | | | | +--------+---------+ + + + | 11/24/ | Office | Cardiology | [place], | | | 2019 | Visit | | SINDHU Erickson [address] | | | | | | [place], | | | | | | [place] [address] | | | | | | [phone] | | | | | | | [...]
--- OUTSIDE RECORDS SUMMARY | ~2019-09-27 | XMS | Encounter Summary ---
Demographics + + + | Address | [address] | | | [place] [address] | + + + | Home Phone [...] | + + +---------+ + | Juana aSinz | ECON | Unknown | | + + +---------+ + | Vahe Khan | ECON | Unknown | | + + +---------+ + Care Team Providers + +------+ + | Care Injection Molder Name | Role | Phone | [...] + + | 03/10/ | Office | [facility] | [place], | Generalized | | 2019 | Visit | CARDIOLOGY [address] | SINDHU Erickson [address] | weakness; | | | | [place], | [place], | Palpitations; | | | | [place] [address] | [place] [address] | Paroxysmal atrial | | | | [phone] | [phone] | tachycardia (HCC); | | | | [...] Since that time, she was seen in [facility] emergency department due to a fall [...] mg by mouth Daily. [facility] Please provide patient with necessary CPAP supplies ( she did not specify, okay to send order as appropriate) Diagnosis Code(s)327.23 . Length of Need 99 months. Please send order to [facility]. 1 each 0 Respiratory Therapy [...] kg (155 lb 13.8 oz) | B NV 29.45 kg/m Physical Exam Constitutional: She is [...] RESULTS reviewed during visit today primarily from [facility]: LIPID Lab Results Component Value Date [...] BNP 45 2018 I reviewed records from [facility] for hospitalization,including H& P, Discharge Summary and lab reports on 2018 which is summarized in the HPI. RESULTS- I reviewed reports from [facility]: No results found. ECHO 01/10/2018 - Normal [...] and v entricular function done at the [facility]. LVEF 78%. [...] She is in class II of the [place] Heart Association functional clas s. There are no signs or symptoms of overt congestive heart failure. 2. Hypotensionsecondary to medication: A. Her propranolol was decreased 06/2017 due to hypotension. B. Today, 03/10/2018, blood pressure is within normal levels at this ti or. 3. Hypokalemia: A. Noted on labs in [...] She was seen at the ED of [facility] 3 weeks ago and again 1 [...] this chart may have been created with [employer] voice recognition software. Occasi onal wrong-word or [...] [place] | | | | | | [address] | | | | | | | | +--------+---------+ + + + | 11/24/ | Office | Cardiology | [place], | | | 2019 | Visit | | SINDHU Erickson [address] | | | | | | [place], | | | | | | [place] [address] | | | | | | [phone] | | | | | | | | +--------+---------+ + + + | 03/01/ | Office | Pulmonology | Mukul Clark MD | | | 2020 | Visit | | [address] | | | | | | [place] | | | | | | [address] | | | | | | | [...] MD | | | | | | [id number]) on 03/11/2018 | | | | | [...]
--- OUTSIDE RECORDS SUMMARY | ~2019-09-27 | XMS | Encounter Summary ---
Demographics + + + | Address | [address] | | | [place] [address] | + + + | Home Phone [...] Team Providers + +------+ + | Care Heating And Refrigeration Inspector Name | Role | Phone | [...] | | | | | [address] [place] | | | | | | [place] [address] | | | | | | [phone] | | | +--------+ + + + [...] Weber, PT - 05/27/2013 3:22 PM [facility] [address] [place] [address] Cancellation/No Show Date: 05/27/2013 Patient Information Patient [...] | | | | | | [place] [address] | | | | | | [phone] | | | | | | | [...]
--- OUTSIDE RECORDS SUMMARY | ~2019-09-27 | XMS | Encounter Summary ---
Demographics + + + | Address | [address] | | | [place] [address] | + + + | Home Phone [...] Providers + +------+ + | Care Manager Database Administration Name | Role | Phone | + +------+ + | Juan Cherry DO | PCP | | + +------+ + Encounter Details +--------+ + + + + | Date | Type | Department | Care Team | Description | +--------+ + + + + | 09/04/ | Orders Only | [facility] [place] | [place], | Paroxysmal atrial | | 2016 | | CARDIOLOGY [address] | Georgina RECREATION INSTRUCTOR [address] | tachycardia (HCC) | | | | [place], | [place], | | | | | [place] [address] | [place] [address] | | | | | [phone] | [phone] | | | | | | | [...] | | | | | | [place] [address] | | | | | | [phone] | | | | | | | | +--------+---------+ + + + | 03/01/ | Office | Pulmonology | Mukul Clark MD | | | 2020 | Visit | | [address] | | | | | | [place] | | | | | | [address] | | | | | | | | +--------+---------+ + + + documented as of this encounter Visit Diagnoses + + | Diagnosis | + + | Paroxysmal atrial tachycardia (HCC) Paroxysmal supraventricular tachycardia | + + documented in this encounter"
--- OUTSIDE RECORDS SUMMARY | ~2019-09-27 | XMS | Encounter Summary ---
Demographics + + + | Address | [address] | | | [place] [address] | + + + | Home Phone [...] Providers + +------+ + | Care Asset Management Analyst Name | Role | Phone | [...] | Off-Site | [facility] [place] | [place], | Tachycardia (Primary | | 2013 | Visit | CARDIOLOGY [address] | SNIDHU Erickson [address] | Dx); Palpitations; | | | | [place], | [place], | Tachyarrhythmia; | | | | [place] [address] | [place] [address] | Other chest pain | | | | [phone] | [phone] | | | | | | | [...] she was schedule for an echocardiogram to [facility] for pericarditis and she was prescribed colchicine. 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 Since [...] 15mg/day x 7 days Respiratory Therapy Supplies MISC Incentive spirometer. Please provide instructions in use. Dx: 848.8 MADELEINE: 3 months 1 each 99 Respiratory Therapy Supplies MISC Please provide patient with necessary CPAP supplies ( she did not specify, okay to send order as appropriate) Diagnosis Code(s)327.23 . Length of Need 99 months. Please send order to [facility]. 1 each 0 Respiratory Therapy Supplies MISC Change CPAP back to 11-14 cm H2O. All necessary suppl ies. No oxygen bleed in. Diagnosis Code(s)327.23. Length of Need: Lifetime. Please send orde r to [facility]. This is not a [...] HGBEX 14.5 05/10/2013 I reviewed records from [facility] for emergency department visit o n 01/20/2014 [...] She was seen at the ED of [facility] 3 weeks ago and again 1 [...] She is in a class II of [place] Heart Association functional class. There is no [...] and ventricular function don e at the [facility]. LVEF 78%. C. Holter Monitor 08/16/13 Underlying normal sinus rhythm with rate 56-165 beats per minut e, average rate 91, very rare premature ventricular contractions, Very are premature atrial contractions, and 2 episodes of paroxysmal atrial tachycardia, longest 18 beats, max rte, 15 0 beats per minute. D. Patient was seen by Dr. Dnig on 11/19/13. It was planned to put [...] this chart may have been created with [employer] voice recognition software. Occasi onal wrong-word or sound-alike substitutions may have occurred due to the inherent cárdenas itations of voice recognition software. Please read the chart carefully and recognize, using context, where these substitutions have occurred. documented in th is encounter Procedure Notes Ashlee Allison ARNP - 01/27/2014 10:20 AM PSTAssociated Order(s): ECG 12 LEAD - PBProcedu re(s): ECG 12 LEAD - PBPre-Procedure Diagnose(s): Other chest painPatient Name: Rosario Malik Date of : 1965 Date: 01/27/2014 Time: 10:20 EKG Interpretation Component Value Range & Units VENTRICULAR RATE EKG 87 BPM ATRIAL RATE 87 BPM P-R INTERVAL 120 ms QRS DURATION 92 ms Q-T INTERVAL 360 ms Q-T INTERVAL (corrected) 437 ms P WAVE ZAXIS degrees QRS AXIS 39 degrees T AXIS 53 degrees INTERPRETATION TEXT: I personally reviewed EKG tracing from 01/25/14: Sinus rhythm with baseline artifact, rate o f 87 beats per minute. See scanned document for further interpretation. Electronically si gned by SINDHU Shafer at 01/27/2014 10:26 AM PSTONBASE SCAN WAMT - 01/25/2014 12:00 AM PSTAssociated Order(s): ECG - EXTERNAL SCANElectronically signed by Rolando Pozo at 014 8:44 AM PSTdocumented in this encounter Plan of [...] | | | | | | [place] [address] | | | | | | [phone] | | | | | | | | +--------+---------+ + + + | 03/01/ | Office | Pulmonology | Mukul Clark MD | | | 2020 | Visit | | [address] | | | | | | [place] | | | | | | [address] | | | | | | | [...] 1965 Medical Record Number: | | | [id number] Date: 01/27/2014 Time: 10:20 EKG Interpretation | [...] INTERVAL (corrected) 437 ms | |P WAVE ADRIAN degrees | |QRS AXIS 39 degrees | [...]
--- OUTSIDE RECORDS SUMMARY | ~2019-09-27 | XMS | Encounter Summary ---
Demographics + + + | Address | [address] | | | [place] [address] | + + + | Home Phone [...] Providers + +------+ + | Care Casing Worker Name | Role | Phone | [...] HOSPITAL) (Primary Dx); | | | | [place], | [place], [place] | COPD (chronic | | | | [place] [address] | [address] | obstructive | | | | [phone] | | pulmonary disease) | | | [...] was able to control her symptoms until Fridaydrew gamino. She subsequently contacted myself by phone. She [...] are not enrolled in cardiac/pulmonary rehabilitation or ot er physical therapy. They have not completed [...] [facility]) 10/28/2012 Overview: Managed by [facility] along with hypothyroidism Osteoarthritis Social History: [...] Please send order to [facility] D isp: 1 each, Rfl: 0 Respiratory Therapy Supplies MISC, Change CPAP back to 11-14 cm H2O. All necessary supplies . No oxygen bleed in. Diagnosis Code(s)327.23. Length of Need: Lifetime. Please send order t o [facility]. This is not [...] sounds few expiratory wheezes bilaterally. No scrap sorter ckles or rhonchi. No dullness to percussion. [...] Cherry documented in this encounter Procedure Notes TRINITY LOVETTMS - 07/15/2013 12:00 AM PDTAssociated Order(s): DIAGNOSTIC REPORT - [...] [place] | | | | | | [address] | | | | | | | | +--------+---------+ + + + | 11/24/ | Office | Cardiology | [place], | | | 2019 | Visit | | SINDHU Erickson [address] | | | | | | [place], | | | | | | [place] [address] | | | | | | [phone] | | | | | | | | +--------+---------+ + + + | 03/01/ | Office | Pulmonology | Mukul Clark MD | | | 2020 | Visit | | [address] | | | | | | [place] | | | | | | [phone] | | | | | | | [...] | 07/15/2014 | | | | | (HCC) | [...]
--- OUTSIDE RECORDS SUMMARY | ~2019-09-27 | XMS | Encounter Summary ---
Demographics + + + | Address | [address] | | | [place] [address] | + + + | Home Phone [...] Team Providers + +------+ + | Care Education Program Associate Name | Role | Phone | [...] | | MD Jared | [address] | | | | | Pericarditis | [address] | [place], | | | | | Procedures | [address] | [place] | | | | | ECHO | [place], | [address] | | | | | Complete | [place] [address] | Phone: | | | | | | Phone: | [phone] | | | | | | [phone] | Fax: | | | | | | Fax: | [phone] | | | | | | [phone] | | +--------+--------+ + + + + [...] | CARDIOLOGY [address] | [address] | (Primary Dx); | | | | [address] [place], | [place], | Palpitation; | | | | [place] [address] | [place] [address] | Tachycardia; | | | | [phone] | [phone] | Pericarditis | | | | | [...] as of this encounter Progress Notes Jared Mcdoonugh MD - 01/11/2014 8:42 AM PSTFormatting of [...] referred to Dr. Ding to discuss at [facility] tachycardia ablation. Patient was seen by [...] the ED of [facility] 3 weeks ago. There was no [...] Daily. Respiratory Therapy Supplies [facility] Incentive spirometer. Please provide instructions in use. [...] the ED of [facility] 3 weeks ag o. according to the history, I suspect that she has pericarditis. However, EKG shows no ST elevation. Physical exam shows no pericardial rub. Patient states that she is allergic to NSAID's There is no signs and symptoms of overt congestive heart failure. She is in a class II of [place] Heart Association functional class. There is no [...] and ventricular function don e at the [facility]. LVEF 78%. C. [...] weeks. Electronically signed by: Jared Mcdonough MD [facility] 01/11/2014 Portions of this chart may have been created with [employer] voice recognition software. Occasi onal wrong-word or sound-alike substitutions may have occurred due to the inherent cárdenas itations of voice recognition software. Please read the chart carefully and recognize, using context, where these substitutions have occurred. documented in this encounter Procedure Notes TRINITY LOVETTMI - 01/11/2014 12:00 AM PSTAssociated Order(s): ECG [...] [place] | | | | | | [place] [address] | | | | | | [phone] | | | | | | | | +--------+---------+ + + + | 03/01/ | Office | Pulmonology | Mukul Clark MD | | | 2020 | Visit | | [address] | | | | | | [place], [place] | | | | | | [address] | | | | | | | [...] Performed At | + + + | [facility] ECHOCARDIOGRAM REPORT | [facility] | | STUDY DATE: 01/14/2014 PATIENT NAME: Rosario Malik | [facility] | | : 1965 PCP: Juan Cherry, [place] | | CLINICAL HISTORY/DIAGNOSIS: Pericarditis/pericardial effusion A [...] by: | | | Jared Mcdonough MD [facility] 01/14/2014 8:40 Sheet Sorter: | | | Charmaine Ibarra RDMS | | + + + + + | Procedure Note | + + | Jared Mcdonough MD - 01/14/2014 11:28 AM [facility] | | CENTERECHOCARDIOGRAM REPORTSTUDY DATE: 01/14/2014PATIENT NAME: Rosario AyersOB: | | 1965MRN: [id number]: EFREN GuillaumeLINICAL HISTORY/DIAGNOSIS: | | Pericarditis/pericardial effusionA [...] | mmHgLA volume: 30 mLLA index: 18 mL/a2Iylwlo Inflow DT: 262 msIVRT: 75 msValsalva: | | NegativePWDTI S wave: 8.7 cm/sPWDTI E wave: 9.0 cm/sPWDTI A wave: 11.5 cm/sE/A Ratio: | | 0.783E/E Ratio: 8.95Signed by: Jared Mcdonough MD [facility] 01/14/2014 8:40 | | Sheet Sorter: Charmaine Ibarra RDMS | | | | [...] | | |Signed by: Jared Mcdonough MD [facility] | | 01/14/2014 8:40 | | | | | |Sheet Sorter: Charmaine Ibarra RDMS | + + + + + + + | Performing | Address | City/State/Zipcode | Phone Number | | Organization | | | | + + + + + | [facility] | [address] | [place] | [phone] | | [facility] | | [address] | | | - IMAGING | | [...]
--- OUTSIDE RECORDS SUMMARY | ~2019-09-27 | XMS | Encounter Summary ---
Demographics + + + | Address | [address] | | | [place] [address] | + + + | Home Phone [...] Team Providers + +------+ + | Care Pinking Sewing Machine Operator Name | Role | [...] + + | 10/07/ | Telephone | [facility] | Kevin Sandoval, | [place]ora | | 2014 | | PULMONARY [address] | MD [address] | | | | | [place], | [place] | | | | | [place] [address] | [address] | | | | | [phone] | | | +--------+ + + + [...] loni white that she has found another life insurance actuary and will not be returning for follow [...] [place] | | | | | | [address] | | | | | | | | +--------+---------+ + + + | 11/24/ | Office | Cardiology | [place], | | | 2019 | Visit | | SINDHU Erickson [address] | | | | | | [place], | | | | | | [place] [address] | | | | | | [phone] | | | | | | | [...]
--- OUTSIDE RECORDS SUMMARY | ~2019-09-27 | XMS | Encounter Summary ---
Demographics + + + | Address | [address] | | | [place] [address] | + + + | Home Phone [...] Team Providers + +------+ + | Care Asphalt Coater Name | Role | Phone | [...] | RN | | | | | [place], | | | | | | [place] [address] | | | | | | [phone] | | | +--------+ + + + [...] | | | | | | [place] [address] | | | | | | [phone] | | | | | | | | +--------+---------+ + + + | 03/01/ | Office | Pulmonology | Mukul Clark MD | | | 2020 | Visit | | [address] | | | | | | [place] | | | | | | [phone] | | | | | | | | +--------+---------+ + + + documented as of this encounter Visit Diagnoses Not on filedocumented in this encounter"
--- OUTSIDE RECORDS SUMMARY | ~2019-09-27 | XMS | Encounter Summary ---
Demographics + + + | Address | [address] | | | [place] [address] | + + + | Home Phone [...] Providers + +------+ + | Care Rotary Drier Feeder Name | Role | Phone [...] Provider Unknown | | | | | [place], [place] | [phone] | | | | | [address] | | | | | | [phone] | | | +--------+ + + + [...] [place] | | | | | | [address] | | | | | | | | +--------+---------+ + + + | 11/24/ | Office | Cardiology | [place], | | | 2019 | Visit | | SINDHU Erickson [address] | | | | | | [place] | | | | | | [place] [address] | | | | | | [phone] | | | | | | | | +--------+---------+ + + + | 03/01/ | Office | Pulmonology | Mukul Clark MD | | | 2020 | Visit | | [address] | | | | | | [place] | | | | | | [address] | | | | | | | [...]
--- OUTSIDE RECORDS SUMMARY | ~2019-09-27 | XMS | Encounter Summary ---
Demographics + + + | Address | [address] | | | [place] [address] | + + + | Home Phone [...] Providers + +------+ + | Care Commodity Director Name | Role | Phone | [...] + + | 08/03/ | Emergency | [facility] | Alverto Tyler, | Dehydration (Primary | | 2016 | | [facility] | [address] [address] | Dx); Acute | | | | CENTER [address] | [place] | hypokalemia; Urinary | | | | [place], [place] | [place] [address] | tract infection | | | | [address] | [phone] | without hematuria, | | | | [phone] | | site unspecified | +--------+ + [...] encounter ED Notes Alverto Tyler MD - 08/04/2015 11:15 AM PDTFormatting of this note might be different fro m the original. [facility] Encounter Note [address] [place] [address] PCP:Juan Cherry DO [phone] CHIEF COMPLAINT: Chief Complaint Patient presents with Emesis ED Room: ED08/ED08 TRIAGE: ED Triage Notes Faina Ortiz RN 08/04/2015 10:54 Pt seen at [place] for "slipped Nissin". Pt has been off of her "antacid" for a bout a week for testing in [place]. PT is now complaining of vomiting up acid. Pt states she i s back on antacid, but still having difficulty. PT states she is confused now too. "I'm jus t acting weird" pt reports not having any additional Rx's for the procedure. Original note by Faina Ortiz RN at 08/04/2015 10:52 Faina Ortiz RN 08/04/2015 10:52 Pt seen at [place] for "slipped Nissin". Pt has been off of her "antacid" for a bout a week for testing in [place]. PT is now complaining of vomiting up acid. Pt states she i s back on antacid, but still having difficulty. Addendum to note by Faina Ortiz RN at 08/04/2015 10:54 HPI Rosario Malik is a 50 y.o. female who presents to the Emergency Department concerned abou t being loopy off balance and a little confused. She's also been dizzy and has had poor int mundo with reflux symptoms. She's not been feeling well for a week and it came on after stopp ing her omeprazole. There's been some intermittent vomiting and poor intake. She says she does have a little chest pressure but no pain anywhere nor any fever or diarrhea. She says she vomited once during the night and is not sure if she vomited yesterday but on Friday or Friday she did vomit. At the beginning of the week she had endoscopy in [place] as above PAST MEDICAL & SURGICAL HISTORY Past Medical [...] ([facility]) 10/28/2012 Overview: Managed by [facility] along with hypothyroidism Osteoarthritis Tachycardia Asthma Emphysema Migraine Migraines Past Surgical History Procedure Laterality Date Hammer toe surgery right sided Hiatal hernia repair Hiatal hernia Kirk and bso Ovarian cysts, not cancer Colonoscopy 03/2010 Colonoscopy 1995 [facility] Knee surgery right Wrist surgery right Hysterectomy Other surgical history 02/28/2014 [facility] with Radial approach; Laterality: Left; Surgeon: Jared Mcdonough MD; Location: [facility] Tonsillectomy Age 6 CURRENT MEDICATIONS Previous Medications ALBUTEROL (PROAIR HFA) 90 MCG/PUFF INHALER Inhale 2 puffs into the lungs every 6 hours as needed for Wheezing or Shortness of Breath. ALBUTEROL-IPRATROPIUM (DUONEB) 2.5-0.5 MG/3 ML SOLN Take 3 mLs by nebulization every 4 hours as needed. ALENDRONATE (FOSAMAX) 70 MG TABLET Take 70 mg by mouth every 7 days. CETIRIZINE (ZYRTEC) 10 MG TABLET ERGOCALCIFEROL (VITAMIN D-2) 50,000 UNITS CAPSULE FLUTICASONE-SALMETEROL (ADVAIR HFA) 115-21 MCG/ACT INHALER Inhale 2 puffs into the lung s 2 times daily. GABAPENTIN (NEURONTIN) 800 MG TABLET Take 800 mg by mouth 3 times daily. LEVOTHYROXINE (SYNTHROID, LEVOTHROID) 75 MCG TABLET Take 75 mcg by mouth every morning (before breakfast). NITROGLYCERIN (NITROSTAT) 0.[address] 1 tablet under the tongue every 5 sarabjit jimy as needed (Esophogeal spasm). OMEPRAZOLE (PRILOSEC) 20 MG CAPSULE Take 20 [...] takes this da rigoberto RESPIRATORY THERAPY SUPPLIES [facility] Change CPAP back to 11-14 cm H2O. All necessary suppl ies. No oxygen bleed in. Diagnosis Code(s)327.23. Length of Need: Lifetime. Please send orde r to [facility]. This is not a new order, just a change in settings. RESPIRATORY THERAPY SUPPLIES [facility] Please provide patient with necessary CPAP supplies ( she did not specify, okay to send order as appropriate) Diagnosis Code(s)327.23 . Length of Need 99 months. Please send order to [facility]. 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 Oropharynx benign. Mouth dry Neck: Supple with good range of motion, no JVD or tenderness Respiratory: Good air movement bilaterally. No rales or wheezing Cardiovascular: Normal S1 S2, no murmur Abdomen: Soft, nontender. No rebound, guarding, or masses. No pulsatile masses Extremities: Nontender. No lower extremity edema, no calf asymmetry. Skin: Warm, Dry, No rashes Neurologic: Alert but slightly drowsy. Not anxious but some tremor of left foot. No focal deficits., Speech normal, gait not tested Psychiatric: Normal mood and affect. EKG 12-lead EKG shows normal sinus rhythm at 71 slightly prolonged QTC, no acute changes LABS Results for orders placed or performed during the hospital encounter of 08/04/15 Troponin I Result Value Ref Range Troponin I <0.01 <0.06 ng/mL CBC w/ Auto Differential Result Value Ref Range WBC 12.3 (H) 4.0-11.0 K/uL RBC 4.72 3.70-5.20 M/uL Hgb 13.6 11.5-16.0 g/dL Hct 39.8 34.0-47.0 % MCV 84.3 83.0-101.0 fL MCH 28.8 28.0-35.0 pg MCHC 34.2 32.0-36.0 g/dL RDW-CV 13.3 <15.0 % Platelet Count 431 140-440 K/uL MPV 7.5 fL % Neutrophils 77.0 45.0-82.0 % % Lymphocytes 17.8 (L) 20.0-45.0 % % Monocytes 4.0 4.0-12.0 % % Eosinophils 0.5 0.0-5.0 % % Basophils 0.7 0.0-1.0 % Absolute Neutrophils 9.50 (H) 1.80-8.50 K/uL Absolute Lymphocytes 2.20 0.60-3.20 K/uL Absolute Monocytes 0.50 0.00-1.00 K/uL Absolute Eosinophils 0.10 0.00-0.40 K/uL Absolute Basophils 0.10 0.00-0.10 K/uL Comprehensive Metabolic Panel Result Value Ref Range NA 136 136-149 mmol/L K 2.8 (L) 3.5-5.1 mmol/L CL 95 (L) 98-109 mmol/L CO2 28 24-31 mmol/L ANION GAP 13 3-16 mmol/L GLUCOSE 146 (H) 70-109 mg/dL BUN 22 (H) 7-18 mg/dL Creatinine, Serum/Plasma 1.44 (H) 0.60-1.30 mg/dL eGFR if not 39 (L) >=60 mL/min/1.73m2 CALCIUM 10.5 8.3-10.5 mg/dL ALBUMIN 3.2 3.2-5.0 g/dL BILIRUBIN TOTAL 0.5 0.1-1.5 mg/dL Total protein 6.1 6.0-7.8 g/dL AST 17 10-42 U/L ALT 11 6-45 U/L ALK PHOS 72 40-110 U/L GLOBULIN 2.9 2.1-3.8 g/dL Albumin/Globulin ratio 1.1 0.8-2.0 BUN/CREA 15.3 Urinalysis with Microscopic with Culture if Indicated Result Value Ref Range COLOR Yellow Light Yellow, Yellow, Straw CLARITY Clear Clear PH UA 5.0 5.0-8.0 Specific [place] 1.009 1.001-1.030 PROTEIN UA Negative Negative BLOOD UA Negative Negative GLUCOSE UA Negative Negative KETONES UA Negative Negative BILIRUBIN UA Negative Negative NITRITE UA Negative Negative LEUKOCYTES ESTERASE UA Trace (A) Negative UROBILINOGEN UA Negative 0.2 mg/dL, 1.0 mg/dL, Negative WBC UA 5-10 (A) 0-2 /HPF RBC UA 0-2 0-2 /HPF SQUAMOUS EPITHELIAL UA 15-25 (A) 0-2 /LPF BACTERIA UA 1+ (A) Negative /HPF HYALINE CASTS UA 0-2 0-2 /LPF MUCUS UA Present (A) Negative /LPF URINE COMMENT Urine Culture Set Up ECG 12 lead Result Value Ref Range INTERPRETATION TEXT Not Confirmed ED COURSE & MEDICAL DECISION MAKING Pertinent Labs & Imaging studies were reviewed along with EMS notes and long-term record s if applicable. (See chart for details) Medications and Allergy list reviewed. Nurses note and old records were reviewed, 3 days ago BUN and creatinine were 6 and 0.9 wit h normal electrolytes The patient was seen and examined, findings suggest dehydration so we'll rehydrate and chec k cardiac tests and electrolytes for other causes that would need attention. 1235 recheck improved after first liter of saline, informed of low potassium and advised re placement. Possible UTI but may be contaminated. Because of confusion and elevated white c ount will check culture and start cephalexin 1320 awaiting second liter of IV fluids and oral potassium 1400 keeping oral potassium down, I find no indication for admission as she is able to repl dolores potassium orally and is improved with IV fluids. Further rehydration and potassium repl acement at home Last Set of Vital Signs: Temp: 36.7 C (98.1 F) Pulse: 80 Resp: 16 SpO2: 97 % BP: 115/71 mmHg FINAL IMPRESSION ICD-10-CM ICD-9-CM 1. Dehydration E86.0 276.51 2. Acute hypokalemia E87.6 276.8 3. Urinary tract infection without hematuria, site unspecified N39.0 599.0 Follow-up Information Follow up with Juan Cherry DO In 6 days. Specialty: Family Medicine - Adult Medicine Why: For re-check Contact information: [address] [facility] [address] New Prescriptions CEPHALEXIN (KEFLEX) 250 MG CAPSULE Take 1 capsule by mouth 4 times daily for 7 days. POTASSIUM CHLORIDE (K-DUR) 20 MEQ ER TABLET Take 1 tablet by mouth Daily. Discharge Instructions Increase fluids and replace potassium, use Zofran as needed for nausea. Cephalexin for pos sible urine infection. Recheck in 4 days if not improving, otherwise 6 days but sooner if w orse Portions of this chart may have been created with [employer] voice recognition software. Occasi onal wrong-word or sound-alike substitutions may have occurred due to the inherent cárdenas itations of voice recognition software. Please read the chart carefully and recognize, using context, where these substitutions have occurred Alverto Tyler MD 08/04/15 1429 document ed in this encounter Miscellaneous Notes ED Triage Notes - Faina Ortiz RN - 08/04/2015 10:48 AM PDTPt seen at [facility] [place] for "slipped Nissin". Pt has been off of her "antacid" for about a week for testing in [place]. PT is now complaining of vomiting up acid. Pt states she is back on antacid, but sti ll having difficulty. PT states she is confused now too. "I'm just acting weird" pt reports not having any additional Rx's for the procedure. documented in this encounter Plan of Treatment [...] | | | | | | [place] [address] | | | | | | [phone] | | | | | | | | +--------+---------+ + + + | 03/01/ | Office | Pulmonology | Mukul Clark MD | | | 2020 | Visit | | [address] | | | | | | [place] | | | | | | [address] | | | | | | | [...] + | [facility] | [address] | [place], [place] | [phone] | | [facility] | | [address] | | | - LABORATORY | | [...] | Urine | | Yellow, Straw | [facility] | | | | [...] - 1.030 | [facility] | | | [place], | | | [facility] | | [...] + + | White Blood | 5-10 (A) | 0 - 2 [...] + + + + | Squamous | 15-25 (A) | 0 - 2 [...] | | Casts, | | | [facility] | | [...] + + | Urine | Urine Culture Set Up | | [facility] | | | Comment | | | [facility] | | [...] [address] | [place] | [phone] | | [facility] | | [address] | | | - LABORATORY | | [...] 1.44 (H) | 0.60 - 1.30 | [facility] | | | | | mg/dL | [facility] | | | | | | MEDICAL | | | | | | CENTER - | | | | | | LABORATORY | | + + + + + + | eGFR, | 39 (L)Comment: | >=60 | [facility] | | | non- | GLOMERULAR FILTRATION | mL/min/1.73m2 | [facility] | | | [place] | RATE,ESTIMATED | | MEDICAL | | | | mL/min/1.43u1Opby than | | CENTER - | | [...] [address] | [place] | [phone] | | [facility] | | [address] | | | - LABORATORY | | | | + + + + + CBC w/ Auto Differential (08/04/2015 11:44 AM PDT) + + + + + + | Component | Value | Ref Range | Performed | Pathologist | | | | | At | Signature | + + + + + + | White Blood | 12.3 (H) | 4.0 - 11.0 [...] + | [facility] | [address] | [place] | [phone] | | [facility] | | [address] | | | - LABORATORY | | [...] | | | | | | [employer] | | | | | [...] + + | Performing | Address | City/State/[facility] | Phone Number | | Organization | | | | + + + + + | [facility] | [address] | [place] | [phone] | | [facility] | | [address] | | | - LABORATORY | | [...] | | | | RAFA WELLS MD ([id number]) | | | | | | on [...] | | | over 2 Hours, ONCE, Fri08/04/15 | | | | | | | at 1245, For 1 dose | | | | | | + +---------+ +--------+-------+---+ +---+---+ | | | +---+---+ + +-------+ +--------+---+---+ | potassium chloride 20 mEq/15 mL | Given | 08/04/19 | 20 mEq | | | | liquid 20 mEq 20 mEq, Oral, | | 16 1:31 | | | | | ONCE, Fri08/04/15 at 1240, For 1 | | PM [...]
--- OUTSIDE RECORDS SUMMARY | ~2019-09-27 | XMS | Encounter Summary ---
Demographics + + + | Address | [address] | | | [place] [address] | + + + | Home Phone [...] Providers + +------+ + | Care Delivery Clerk Name | Role | Phone | [...] Alonso MD | | | | | [place], | | | | | | [place] [address] | | | | | | [phone] | | | +--------+--------+ + + + [...] | | | | | | [place] [address] | | | | | | [phone] | | | | | | | [...]
--- OUTSIDE RECORDS SUMMARY | ~2019-09-27 | XMS | Encounter Summary ---
Demographics + + + | Address | [address] | | | [place] [address] | + + + | Home Phone [...] Team Providers + +------+ + | Care Experimental Mechanic Spacecraft Name | Role | Phone | + [...] | 02/22/ | Off-Site | [facility] [place] | [place], | Tachyarrhythmia | | 2013 | Visit | CARDIOLOGY [address] | [place] Erickson [address] | (Primary Dx); | | | | [place], | [place], | Palpitations; Other | | | | [place] [address] | [place] [address] | chest pain | | | | [phone] | [phone] | | | | | | | [...] other kind of bleeding. Fever over 101.0F. 0127-9307 [employer]. [address] [place] [address]. All righ ts reserved. This information is [...] mg by mouth Daily. Respiratory Therapy Supplies [facility] Incentive spirometer. Please provide instructions in use. [...] Lifetime. Please send orde r to [facility]. This is not a [...] She is in a class II-III of [employer] ation functional class. There is [...] and ventricular function don e at the [facility]. LVEF 78%. C. Holter Monitor 08/16/13 Underlying [...] this chart may have been created with [employer] voice recognition software. Occasi onal wrong-word or [...] | | | | | | [place] [address] | | | | | | [phone] | | | | | | | | +--------+---------+ + + + | 03/01/ | Office | Pulmonology | Mukul Clark MD | | | 2020 | Visit | | [address] | | | | | | [place] | | | | | | [address] | | | | | | | [...] Rosario Malik, (1965) MEDICAL RECORD NUMBER: | [facility] | | [id number] DATE OF PROCEDURE: 02/28/2014 DYE OPERATOR: | - IMAGING | | Jared Mcdonough [...] Malik, (1965) OF | | PROCEDURE: 02/28/2014PRIMARY HEAD WAITER/WAITRESS BANQUET: Jared Mcdonough MD PROCEDURES | | PERFORMED:Coronary [...] [address] | [place] | [phone] | | [facility] | | [address] | | | - IMAGING | | | | + + + + + documented in this encounter Visit Diagnoses + + | Diagnosis | + + | Tachyarrhythmia - Primary Tachycardia, unspecified | + + | Palpitations | + + | Other chest pain | + + documented in this encounter
--- OUTSIDE RECORDS SUMMARY | ~2019-09-27 | XMS | Encounter Summary ---
Demographics + + + | Address | [address] | | | [place] [address] | + + + | Home Phone [...] Providers + +------+ + | Care Dry House Operator Name | Role | Phone | [...] | Concussion | Aaron Kim MD | Bricklayer [address] | | | Required | | with brief | [address] | [place] | | | | | loss of | [address] | [place], [place] | | | | | consciousnes | [place], | [address] | | | | | s Word | [place] [id number] | Phone: | | | | | finding | Phone: | [phone] | | | | | difficulty | [phone] | Fax: | | | | | [phone] | Fax: | [phone] | | | | | (ICD-10-CM) | [phone] | | | | | | - [...] + + | 08/21/ | Hospital | [facility] | Aaron Rodriguez, | Impaired memory | | 2017 | Encounter | MED CTR SPEECH | MD [address] | (Primary Dx); Word | | | | THERAPY [address] | [place] | finding difficulty | | | | [address] [place], | [address] | | | | | [place] [address] | | | | | | [phone] | Kathi Soto, | | | | [...] | | | | | ([facility]) | | | | | | + + + +---------+ + + | | Take 1 capsule by | | 0 | 10/13/19 | | | [id number] | mouth as needed. | | | 16 | 7 | | -Cod [id number] MG | | | | | | [...] | | | | | ([facility]) | | | | | [...] Speech Pathologist - 08/21/2016 2:14 PM PDT [facility] SPEECH THERAPY [address] [place] [address] Speech Therapy Daily Treatment Note Date: 08/21/2016 Patient Information Patient Name: Rosario Malik Date of : 1965 Age: 51 y.o. Encounter Diagnoses Code Name Primary? R41.3 Impaired memory Yes R47.89 Word finding difficulty Date of Onset: 03/15/2016 Referring Provider: Aaron Rodriguez MD Rehab Precautions Flowsheet Row Office Visit from 05/01/2016 in [facility] CTR THERAPY PT OP Rehab Precautions Precautions None Rehab Learning Style Flowsheet Row [facility] WORK[facility] APPRENTICE OP EVAL from 05/16/2016 in [facility] SPEECH THERAPY O ffice Visit from 05/01/2016 in [facility] CTR THERAPY PT OP Learning [...] [place] | | | | | | [place] [address] | | | | | | [phone] | | | | | | | | +--------+---------+ + + + | 03/01/ | Office | Pulmonology | Mukul Clark MD | | | 2020 | Visit | | [address] | | | | | | [place] | | | | | | [address] | | | | | | | [...]
--- OUTSIDE RECORDS SUMMARY | ~2019-09-27 | XMS | Encounter Summary ---
Demographics + + + | Address | [address] | | | [place] [address] | + + + | Home Phone [...] Team Providers + +------+ + | Care Self Pay Collector Name | Role | Phone | [...] Provider Unknown | | | | | [place], [place] | [phone] | | | | | [address] | | | | | | [phone] | | | +--------+ + + + [...] | | | | | | [place] | | | | | | [address] | | | | | | | | +--------+---------+ + + + | 11/24/ | Office | Cardiology | [place], | | | 2019 | Visit | | SINDHU Erickson [address] | | | | | | [place] | | | | | | [place] [address] | | | | | | [phone] | | | | | | | | +--------+---------+ + + + | 03/01/ | Office | Pulmonology | Mukul Clark MD | | | 2020 | Visit | | [address] | | | | | | [place] | | | | | | [address] | | | | | | | [...]
--- OUTSIDE RECORDS SUMMARY | ~2019-09-27 | XMS | Encounter Summary ---
Demographics + + + | Address | [address] | | | [place] [address] | + + + | Home Phone [...] Providers + +------+ + | Care Station Air Traffic Control Specialist Name | Role | Phone | [...] [address] | | | | | [place], | [place], [place] | | | | | [place] [address] | [address] | | | | | [phone] | | | +--------+--------+ + + + [...] [place] | | | | | | [address] | | | | | | | | +--------+---------+ + + + | 11/24/ | Office | Cardiology | [place], | | | 2019 | Visit | | SINDHU Erickson [address] | | | | | | [place], | | | | | | [place] [address] | | | | | | [phone] | | | | | | | | +--------+---------+ + + + | 03/01/ | Office | Pulmonology | Mukul Clark MD | | | 2020 | Visit | | [address] | | | | | | [place] | | | | | | [address] | | | | | | | | +--------+---------+ + + + documented as of this encounter Visit Diagnoses Not on filedocumented in this encounter"
--- OUTSIDE RECORDS SUMMARY | ~2019-09-27 | XMS | Encounter Summary ---
Demographics + + + | Address | [address] | | | [place] [address] | + + + | Home Phone [...] + + | 11/27/ | Hospital | [facility] | Ozzy Delcid, | | | 2009 | Encounter | MED CTR LABORATORY | [address] | | | | | [address] [place] | [address] [place], | | | | | [place], [place] | [place] [address] | | | | | [address] | [phone] | | | | | [phone] | | | +--------+ + + + [...] [place] | | | | | | [address] | | | | | | | | +--------+---------+ + + + | 11/24/ | Office | Cardiology | [place], | | | 2020 | Visit | | SINDHU Erickson [address] | | | | | | [place] | | | | | | [place] [address] | | | | | | [phone] | | | | | | | | +--------+---------+ + + + | 03/01/ | Office | Pulmonology | Mukul Clark MD | | | 2020 | Visit | | [address] | | | | | | [place] | | | | | | [address] | | | | | | | | +--------+---------+ + + + documented as of this encounter Visit Diagnoses Not on filedocumented in this encounter"
--- OUTSIDE RECORDS SUMMARY | ~2019-09-27 | XMS | Encounter Summary ---
Demographics + + + | Address | [address] | | | [place] [address] | + + + | Home Phone [...] Providers + +------+ + | Care Rehabilitation Teacher Name | Role | Phone | [...] + | 10/05/ | Telephone | [facility] | Jared Mcdonough, | Referral | | 2013 | | CARDIOLOGY [address] | MD [address] [place] | | | | | [place], | [place], | | | | | [place] [address] | [place] [address] | | | | | [phone] | [phone] | | | | | | | [...] PDTFAXED TO DR PHILLIP Reynolds FAX NUMBER [phone]: REFERRAL DEMOGRAPHICS CHART NOTES 10-05-13, 08-12-13 HOLTER MONITOR 08-12-13 LABS [id number] signed by Cydney Burnett at 10/05/2013 3:37 [...] [place] | | | | | | [address] | | | | | | | | +--------+---------+ + + + | 11/24/ | Office | Cardiology | [place], | | | 2019 | Visit | | SINDHU Erickson [address] | | | | | | [place], | | | | | | [place] [address] | | | | | | [phone] | | | | | | | [...]
--- OUTSIDE RECORDS SUMMARY | ~2019-09-27 | XMS | Encounter Summary ---
Demographics + + + | Address | [address] | | | [place] [address] | + + + | Home Phone [...] Team Providers + +------+ + | Care Sterile Process Tech Name | Role | Phone | + +------+ + | Juan Cherry DO | PCP | | + +------+ + Encounter Details +--------+ + + + + | Date | Type | Department | Care Team | Description | +--------+ + + + + | 11/14/ | Abstract | [facility] | Jared Mcdonough, | | | 2014 | | CARDIOLOGY [address] | MD [address] [place] | | | | | [place], | [place], | | | | | [place] [address] | [place] [address] | | | | | [phone] | [phone] | | | | | | | [...] | | | | | | [place] [address] | | | | | | [phone] | | | | | | | | +--------+---------+ + + + | 03/01/ | Office | Pulmonology | Mukul Clark MD | | | 2020 | Visit | | [address] | | | | | | [place] | | | | | | [address] | | | | | | | [...]
--- OUTSIDE RECORDS SUMMARY | ~2019-09-27 | XMS | Encounter Summary ---
Demographics + + + | Address | [address] | | | [place] [address] | + + + | Home Phone [...] Providers + +------+ + | Care Electrical Tests Supervisor Name | Role | Phone | [...] | with brief | [address] | | | | n | loss of | [address] | [place], | | | | | consciousnes | [place], | [place] [address] | | | | | s | [place] [address] | Phone: | | | | | Post-concuss | Phone: | [phone] | | | | | ion vertigo | [phone] | Fax: | | | | | [id number] | Fax: | [phone] | | | | | (ICD-10-CM) | [phone] | | | | | | - [...] + + | 05/27/ | Office | [facility] | Aaron Rodriguez, | Dizziness (Primary | | 2017 | Visit | MED CTR THERAPY PT | MD [address] | Dx); Impaired | | | | OP [address] | [place] | mobility and | | | | [place] | [phone] | activities of daily | | | | [address] | | living; Concussion | | | | [phone] | Lakeshia Cleary, PT | with brief (less | | | | | [address] | than one hour) loss | | | | | [place] | of consciousness; | | | | | [address] | Intractable acute | | | | [...] might be different from t he original. [facility] THERAPY PT OP [address] [place] [address] Physical Therapy Daily Treatment Note Date: 05/27/2016 [...] Rehab Precautions Office Visit from 05/01/2016 in [facility] CTR THERAPY PT OP Rehab Precautions Precautions [...] [place] | | | | | | [id number] | | | | | | | | +--------+---------+ + + + | 11/24/ | Office | Cardiology | [place], | | | 2019 | Visit | | SINDHU Erickson [address] | | | | | | [place] | | | | | | [place] [address] | | | | | | [phone] | | | | | | | | +--------+---------+ + + + | 03/01/ | Office | Pulmonology | Mukul Clark MD | | | 2020 | Visit | | [address] | | | | | | [place] | | | | | | [address] | | | | | | | [...]
--- OUTSIDE RECORDS SUMMARY | ~2019-09-27 | XMS | Encounter Summary ---
Demographics + + + | Address | [address] | | | [place] [address] | + + + | Home Phone [...] Providers + +------+ + | Care Sales Hunter Name | Role | Phone | [...] [place] | | | | | [address] | [place] [address] | | | | | [phone] | [phone] | | | | | | | [...] | | | | | | [place] [address] | | | | | | [phone] | | | | | | | [...]
--- OUTSIDE RECORDS SUMMARY | ~2019-09-27 | XMS | Encounter Summary ---
Demographics + + + | Address | [address] | | | [place] [address] | + + + | Home Phone [...] Team Providers + +------+ + | Care Rear Admiral Name | Role | Phone | + [...] | | | occurrence, | address | [place] [address] | | | | | industrial | | Phone: | | | | | places and | | [phone] | | | | | premises | | Fax: | | | | | | | [phone] | +--------+ + + + + + [...] + + | 04/30/ | Office | [facility] | Brian Miranda | Sprain of chest wall | | 2013 | Visit | [facility] | MD Ozzy Need | (Primary Dx); Place | | | | [place] [address] | updated address | of occurrence, | | | | [address] [place] | | industrial places | | | | [place], [place] | | and premises | | | | [address] | | | | | | [phone] | | | +--------+---------+ + + + [...] - 04/30/2013 6:41 PM PSTClaim [place]: [id number] Date of injury: 04/05/13 Employer:[employer] Guarantor: [employer] Complaint: Chest wall sprain, scheduled followup [...] Notes Plan of Care - [facility] - 04/30/2013 12:00 AM PST lan of Care - [facility] - 04/30/2013 12:00 AM PSTElect ronically signed by Rolando Pozo at 05/10/2013 4:53 PM PDTPlan of Care - [facility] - 04/30/2013 12:00 AM PST lan of [...] | | | | | | [place] [address] | | | | | | [phone] | | | | | | | | +--------+---------+ + + + | 03/01/ | Office | Pulmonology | Mukul Clark MD | | | 2020 | Visit | | [address] | | | | | | [place] | | | | | | [address] | | | | | | | [...]
--- OUTSIDE RECORDS SUMMARY | ~2019-09-27 | XMS | Encounter Summary ---
Demographics + + + | Address | [address] | | | [place] [address] | + + + | Home Phone [...] Providers + +------+ + | Care Customer Advisor Specialist Name | Role | Phone | + +------+ + PCP | Unavailable | + +------+ + Encounter Details +--------+ + + + + | Date | Type | Department | Care Team | Description | +--------+ + + + + | 03/23/ | Hospital | [facility] | Rocky Rodriguez | | | 2010 | Encounter | MED CTR EMERGENCY | MD Kyler [address] | | | | | CENTER [address] | [address] [facility] | | | | | [place], [place] | [place] [address] | | | | | [address] | [phone] | | | | | [phone] | | | +--------+ + + + [...] | | | | | | [place] [address] | | | | | | [phone] | | | | | | | | +--------+---------+ + + + | 03/01/ | Office | Pulmonology | Mukul Clark MD | | | 2020 | Visit | | [address] | | | | | | [place] | | | | | | [address] | | | | | | | | +--------+---------+ + + + documented as of this encounter Visit Diagnoses Not on filedocumented in this encounter"
--- OUTSIDE RECORDS SUMMARY | ~2019-09-27 | XMS | Encounter Summary ---
Demographics + + + | Address | [address] | | | [place] [address] | + + + | Home Phone [...] Providers + +------+ + | Care Meter Mechanic Name | Role | Phone | + +------+ + PCP | Unavailable | + +------+ + Encounter Details +--------+ + + + + | Date | Type | Department | Care Team | Description | +--------+ + + + + | 01/23/ | Hospital | [facility] | Ozzy Delcid, | | | 2009 | Encounter | MED CTR XRAY [address] | [address] | | | | | [place] | [address] [place], | | | | | [place] [address] | [place] [address] | | | | | [phone] | [phone] | | | | | | | [...] [place] | | | | | | [address] | | | | | | | | +--------+---------+ + + + | 11/24/ | Office | Cardiology | [place], | | | 2019 | Visit | | SINDHU Erickson [address] | | | | | | [place] | | | | | | [place] [address] | | | | | | [phone] | | | | | | | | +--------+---------+ + + + | 03/01/ | Office | Pulmonology | Mukul Clark MD | | | 2020 | Visit | | [address] | | | | | | [place] | | | | | | [address] | | | | | | | | +--------+---------+ + + + documented as of this encounter Visit Diagnoses Not on filedocumented in this encounter"
--- OUTSIDE RECORDS SUMMARY | ~2019-09-27 | XMS | Encounter Summary ---
Demographics + + + | Address | [address] | | | [place] [address] | + + + | Home Phone [...] Team Providers + +------+ + | Care Cupola Liner Name | Role | Phone | [...] + + | 04/27/ | Office | [facility] | Offenstein, | COPD (chronic | | 2013 | Visit | PULMONARY [address] | Loreta Alonso MD | obstructive | | | | [place], | | pulmonary disease) | | | | [place] [address] | | (Primary Dx); [place] | | | | [phone] | | (obstructive sleep | | | [...] MD [place]aka Rasheed Pulmonary and Critical Care [facility] [place], [address] [facility] Rosario Malik is a 48 [...] us as she had to go to [place] for evaluati on, but then apparently did [...] cysts, not cancer Colonoscopy 03/2010 Colonoscopy [facility] Social History: History Social History Marital Status: Single Spouse Name: N/A Number of Children: 1 Years of Education: 13 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 30 tablet 0 Respiratory Therapy Supplies [facility] [place] Incentive spirometer. Please provide instructions in use. Dx: 848.8 MADELEINE: 3 months 1 each 99 Respiratory Therapy Supplies [facility] [...] Data: CPAP Data: Dates: 03/12/13-04/10/13 Machine type: SavedailyMed S9 auto set Home Health Company: [employer] CPAP Pressure: 11-14 cmH2O Median Titrated Pressure: [...] [facility] to us so that she has some responsibility in her care. Follow up with Saeid hernandez after last visit documented poor compliance with [...] made to ensure accuracy; however, inadvertent computerized pin cleaner errors may be pre sent. documented in [...] | | | | | | [place] [address] | | | | | | [phone] | | | | | | | | +--------+---------+ + + + | 03/01/ | Office | Pulmonology | Mukul Clark MD | | | 2020 | Visit | | [address] | | | | | | [place] | | | | | | [address] | | | | | | | [...]
--- OUTSIDE RECORDS SUMMARY | ~2019-09-27 | XMS | Encounter Summary ---
Demographics + + + | Address | [address] | | | [place] [address] | + + + | Home Phone [...] + +------+ + | Care Customer Service Security Officer Name | Role | Phone | [...] | Concussion | Aaron Kim MD | Custodial Aide [address] | | | Required | | with brief | [address] | [place] | | | | | loss of | [address] | [place], [place] | | | | | consciousnes | [place], | [address] | | | | | s Word | [place] [address] | Phone: | | | | | finding | Phone: | [phone] | | | | | difficulty | [phone] | Fax: | | | | | [id number] | Fax: | [phone] | | | | | (ICD-10-CM) | [phone] | | | | | | - [...] + + | 08/14/ | Hospital | [facility] | Aaron Rodriguez, | Concussion with | | 2017 | Encounter | MED CTR SPEECH | MD [address] | brief (less than one | | | | THERAPY [address] | [place], [place] | hour) loss of | | | | [place], | [address] | consciousness | | | | [place] [address] | | (Primary Dx); | | | | [phone] | Kathi Soto, | Impaired memory; | [...] | 0 | 10/13/19 | | | [id number] | mouth as needed. | | | 16 | 7 | | -Cod [id number] MG | | | | | | [...] Speech Pathologist - 08/15/2016 8:51 AM PDT [facility] SPEECH THERAPY [address] [place] [address] Speech Therapy Progress Assessment Date: 08/14/2016 Patient Information Patient Name: Rosario Malik Date of : 1965 Age: 51 y.o. History Encounter Diagnoses Code Name Primary? S06.0X9A Concussion with brief (less than one hour) loss of consciousness Yes R41.3 Impaired memory R47.89 Word finding difficulty Date of Onset: 03/15/2016 Referring Provider: Aaron Rodriguez MD Rehab Precautions Flowsheet Row Office Visit from 05/01/2016 in [facility] THERAPY PT OP Rehab Precautions Precautions None Rehab Learning Style Flowsheet Row [facility] LEAD TRAINER OP EVAL from 05/16/2016 in [facility] SPEECH THERAPY O ffice Visit from 05/01/2016 in [facility] THERAPY PT OP Learning Style Patient's [...] Patient Caregiver's Ability to Manage Condition: 2 LEAD TRAINER G-Codes Functional Assessment Tool Used: NOMS Functional [...] From: 08/16/2016 Certification To: 11/16/2016 Treatment Plan/Interventions 59132 - Cognitive [id number] - Cognitive [id number] - Speech/Hearing Treatment Patient and/or family has [...] [place] | | | | | | [id number] | | | | | | | | +--------+---------+ + + + | 11/24/ | Office | Cardiology | [place], | | | 2019 | Visit | | SINDHU Erickson [address] | | | | | | [place] | | | | | | [place] [address] | | | | | | [phone] | | | | | | | | +--------+---------+ + + + | 03/01/ | Office | Pulmonology | Mukul Clark MD | | | 2020 | Visit | | [address] | | | | | | [place] | | | | | | [address] | | | | | | | | +--------+---------+ + + + + + +--------+ + + | Name | Type | Priori | Associated Diagnoses | Order Schedule | | | | ty | | | + + +--------+ + + | * [facility] Speech Therapy | Outpatient | Routin | [...]
--- OUTSIDE RECORDS SUMMARY | ~2019-09-27 | XMS | Encounter Summary ---
Demographics + + + | Address | [address] | | | [place] [address] | + + + | Home Phone [...] Team Providers + +------+ + | Care Transmission Specialist Name | Role | Phone | + +------+ + PCP | Unavailable | + +------+ + Encounter Details +--------+ + + + + | Date | Type | Department | Care Team | Description | +--------+ + + + + | 12/28/ | Hospital | [facility] | Ozzy Delcid, | | | 2009 - | Encounter | MED CTR OP REHAB | [address] | | | | | [address] [employer] [place] | [address] [place], | | | 01/23/ | | [place] [address] | [place] [address] | | | 2009 | | [phone] | [phone] | | | | | | | [...] [place] | | | | | | [address] | | | | | | | | +--------+---------+ + + + | 11/24/ | Office | Cardiology | [place], | | | 2019 | Visit | | SINDHU Erickson [address] | | | | | | [place] | | | | | | [place] [address] | | | | | | [phone] | | | | | | | | +--------+---------+ + + + | 03/01/ | Office | Pulmonology | Mukul Clark MD | | | 2020 | Visit | | [address] | | | | | | [place] | | | | | | [address] | | | | | | | | +--------+---------+ + + + documented as of this encounter Visit Diagnoses Not on filedocumented in this encounter"
--- OUTSIDE RECORDS SUMMARY | ~2019-09-27 | XMS | Encounter Summary ---
Demographics + + + | Address | [address] | | | [place] [address] | + + + | Home Phone [...] Team Providers + +------+ + | Care Bus Driver/Monitor Name | Role | Phone | + [...] Alonso MD | | | | | [place], | | | | | | [place] [address] | | | | | | [phone] | | | +--------+--------+ + + + [...] | | | | | | [place] [address] | | | | | | [phone] | | | | | | | | +--------+---------+ + + + | 03/01/ | Office | Pulmonology | Mukul Clark MD | | | 2020 | Visit | | [address] | | | | | | [place] | | | | | | [address] | | | | | | | | +--------+---------+ + + + documented as of this encounter Visit Diagnoses Not on filedocumented in this encounter"
--- OUTSIDE RECORDS SUMMARY | ~2019-09-27 | XMS | Encounter Summary ---
Demographics + + + | Address | [address] | | | [place] [address] | + + + | Home Phone [...] Providers + +------+ + | Care Brand Planner Name | Role | Phone | [...] [address] | Loreta Alonso MD | ([facility]) (Primary Dx); | | | | [place], | | GARRY (obstructive | | | | [place] [address] | | sleep apnea); | | | | [phone] | | Central sleep apnea; | | [...] Pulmonary Follow Up Note Loreta London MD [facility] [address], [address] [facility] Rosario Malik is a 48 [...] left her on the Spiriva (started in [place]), and continued Adva ir. 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 30 tablet 0 Respiratory Therapy Supplies [facility] Please provide patient with necessary CPAP supplies ( she did not specify, okay to send order as appropriate) Diagnosis Code(s)327.23 . Length of Need 99 months. Please send order to [facility]. 1 each 0 Respiratory Therapy Supplies [facility] Change CPAP back to 11-14 [...] Data: CPAP Data: Dates: 09/29/12-12/27/12 Machine type: Nutritics auto CPAP Home Health Company: [employer] CPAP Pressure: 11-14 cmH2O Median Titrated Pressure: 11.6 cmH2O 95%tile Pressure: 13.7 cmH2O Maximum Pressure: 13.9 cmH2O AHI: 2.4 events/hour Total number of days: 90 Number of days used: 80 Median daily usage: 4:27 hours Percent of days used for more than 4 hours: 48 % Median leak: 0.0 L/min Records from [place] ER visits and clinic visits are reviewed. It is noted that she did ac tually go off of her medications for a period of time when she moved. Immunization History Administered Date(s) Administered INFLUENZA, >= 4YO W/PRESERVATIVE IM 12/12/2010 INFLUENZA, PRESERVATIVE FREE IM 12/13/2011, 11/27/2012 Pneumococcal (Adult) 02/24/2011 Tdap 01/22/2008 Assessment 1. COPD exacerbation - On prednisone. Poor medication compliance, here and in [place]. We have ordered her Spiriva. I told [...] made to ensure accuracy; however, inadvertent computerized resistor winder errors may be pre sent. documented in [...] [place] | | | | | | [address] | | | | | | | | +--------+---------+ + + + | 11/24/ | Office | Cardiology | [place], | | | 2019 | Visit | | SINDHU Erickson [address] | | | | | | [place], | | | | | | [place] [address] | | | | | | [phone] | | | | | | | | +--------+---------+ + + + | 03/01/ | Office | Pulmonology | Mukul Clark MD | | | 2020 | Visit | | [address] | | | | | | [place] | | | | | | [address] | | | | | | | [...]
--- OUTSIDE RECORDS SUMMARY | ~2019-09-27 | XMS | Encounter Summary ---
Demographics + + + | Address | [address] | | | [place] [address] | + + + | Home Phone [...] Team Providers + +------+ + | Care Trimming Inspector Name | Role | Phone | [...] | obstruction, not | | | | [place], | [place], [place] | elsewhere classified | | | | [place] [address] | [address] | ([facility]) (Primary Dx) | | | | [phone] | | | +--------+ + + + [...] | Visit | | [address] | | | | | | [place] | | | | | | [address] | | | | | | | | +--------+---------+ + + + | 11/24/ | Office | Cardiology | [place], | | | 2019 | Visit | | SINDHU Erickson [address] | | | | | | [place] | | | | | | [place] [address] | | | | | | [phone] | | | | | | | | +--------+---------+ + + + | 03/01/ | Office | Pulmonology | Mukul Clark MD | | | 2020 | Visit | | [address] | | | | | | [place] | | | | | | [address] | | | | | | | | +--------+---------+ + + + documented as of this encounter Visit Diagnoses + + | Diagnosis | + + | Chronic airway obstruction, not elsewhere classified - Primary | + + documented in this encounter"
--- OUTSIDE RECORDS SUMMARY | ~2019-09-27 | XMS | Encounter Summary ---
Demographics + + + | Address | [address] | | | [place] [address] | + + + | Home Phone [...] Providers + +------+ + | Care Systems Requirements Planner Name | Role | Phone | [...] + + | 03/25/ | Office | [facility] | Daryl Hargrove | Diverticulitis of | | 2014 | Visit | CARE [address] | Ernie Sanabria MD | large intestine | | | | [place], [place] | [address] | without perforation | | | | [address] | [place] | or abscess without | | | | [phone] | [address] | bleeding (Primary | | | | [...] 2020 | Visit | | [address] [facility] | | | | | | [place] | | | | | | [id number] | | | | | | | | +--------+---------+ + + + | 11/24/ | Office | Cardiology | [place], | | | 2019 | Visit | | SINDHU Erickson [address] | | | | | | [place], | | | | | | [place] [address] | | | | | | [phone] | | | | | | | | +--------+---------+ + + + | 03/01/ | Office | Pulmonology | Mukul Clark MD | | | 2020 | Visit | | [address] | | | | | | [place] | | | | | | [address] | | | | | | | [...] 1.001 - 1.030 | | | | [place], | | | | | | [facility], [...]
--- OUTSIDE RECORDS SUMMARY | ~2019-09-27 | XMS | Encounter Summary ---
Demographics + + + | Address | [address] | | | [place] [address] | + + + | Home Phone [...] Team Providers + +------+ + | Care Revenue Specialist Name | Role | Phone | + +------+ + | Juan Cherry DO | PCP | | + +------+ + Reason for Visit + +--------+ + | Reason | Onset | Comments | | | Date | | + +--------+ + | Medication Prior | 09/05/ | | | Authorization | 2015 | | + +--------+ + Encounter Details +--------+ + + + + | Date | Type | Department | Care Team | Description | +--------+ + + + + | 09/05/ | Telephone | [facility] | Kevin Sandoval, | Medication Prior | | 2014 | | PULMONARY [address] | MD [address] | Authorization | | | | [place], | [place] | | | | | [place] [address] | [address] | | | | | [phone] | | | +--------+ + + + [...] Telephone Encounter - Loraine Hawkins RN - 09/05/2014 6:04 PM PDTCalled Michelle and was told the prescription went through her Part B just fine. Confirmed the diagnosis of COPD 496 with pharmacy. (Form shredded from [facility], not needed). elephone Encounter - Loraine Hawkins RN - 0 09/05/2014 1:31 PM PDTReceived [facility] "[facility] would normally be covered under part B but patient is not part B eligible. Part D requires prior auth in this scenario. Please see attached sheet" (pharmacy rejection with number to call for PA: ). I called that number and spoke with Brendon Clinical Triage at [facility] and she is f axing form for us to complete but advised I call patient and see if she has part B. Called Ginny sapp and she said nothing has changed with her insurance and at [facility] she'd pay at $ 12 co pay and get her nebulized medication. She will just call [facility] and have them lo sfer the prescription back to them and she'll get it filled there. Keith, pharmacist at [facility] said they called Part B and were told she doesn't have it, that patient may need to eloy l Medicare to verify it with them. Rosario notified. She said she will first start with [facility]. Advised her to let us know if she has further problems. documented in this encounter Plan of Treatment [...] | | | | | | [place] [address] | | | | | | [phone] | | | | | | | | +--------+---------+ + + + | 03/01/ | Office | Pulmonology | Mukul Clark MD | | | 2020 | Visit | | [address] | | | | | | [place] | | | | | | [address] | | | | | | | | +--------+---------+ + + + documented as of this encounter Visit Diagnoses Not on filedocumented in this encounter
--- OUTSIDE RECORDS SUMMARY | ~2019-09-27 | XMS | Encounter Summary ---
Demographics + + + | Address | [address] | | | [place] [address] | + + + | Home Phone [...] Providers + +------+ + | Care Numerical Analysis Group Manager Name | Role | Phone | [...] + + | 11/04/ | Office | [facility] | Daryl Hargrove | Axillary abscess | | 2015 | Visit | CARE [address] | Ernie Sanabria MD | (Primary Dx) | | | | [place], [place] | [address] | | | | | [address] | [place] [facility] [place] | | | | | [phone] | [address] | | | | | [...] Murray Jr., MD - 11/04/2014 9:23 AM PDTFredericketmeghna Álvaro bonilla has had recurrent axillary abscesses [...] [place] | | | | | | [address] | | | | | | | | +--------+---------+ + + + | 11/24/ | Office | Cardiology | [place], | | | 2019 | Visit | | SINDHU Erickson [address] | | | | | | [place], | | | | | | [place] [address] | | | | | | [phone] | | | | | | | | +--------+---------+ + + + | 03/01/ | Office | Pulmonology | Mukul Clark MD | | | 2020 | Visit | | [address] | | | | | | [place] | | | | | | [phone] | | | | | | | [...] | | Result | | | [facility] | | [facility] | | | | [facility] - | | | | | | LABORATORY | | + + + + + + | Gram Stain | 1+ Epithelial cells | | [facility] | | | Result | | | [facility] | | | | | | [facility] | | | | | [facility] - | | | | | | LABORATORY | | + + + + + + | Gram Stain | 1+ Gram positive cocci | | [facility] | | | Result | | | [facility] | | [...] [address] | [place] | [phone] | | [facility] | | [address] | | | - LABORATORY | | | | + + + + + documented in this encounter Visit Diagnoses + + | Diagnosis | + + | Axillary abscess - Primary Cellulitis and abscess of upper arm and forearm | + + documented in this encounter
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
--- OUTSIDE RECORDS SUMMARY | ~2019-09-27 | XMS | Encounter Summary ---
Demographics + + + | Address | [address] | | | [place] [address] | + + + | Home Phone [...] Team Providers + +------+ + | Care Product Ambassador Name | Role | Phone | [...] | | | | | | | [place] | | | | | | | [place], | | | | | | | [place] [address] | | | | | | | Phone: | | | | | | | [phone] | | | | | | | Fax: | | | | | | | [phone] | +--------+--------+ + + + + Encounter Details +--------+---------+ + + + | Date | Type | Department | Care Team | Description | +--------+---------+ + + + | 05/13/ | Office | [facility] | Brian Miranda | Sprain of chest wall | | 2014 | Visit | MED CTR THERAPY PT | MD Ozzy Need | (Primary Dx); | | | | OP [address] | updated address | Fibromyalgia | | | | [place] | Kevin Weber, | | | | | [address] | PT | | | | | [phone] | | | +--------+---------+ + + + [...] 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 OP PT Goals OP PT Goals: [...] of assessment secondary to pain. Treatment Plan/Interventions: 12305 PT Evaluation;30691 Therapeutic Exercise;40219 Therapeutic Activity;03454 Ultrasound; 30033 Electrical Stimulation - Attended;Cold Pack;Hot Pack Requested # of Visits: 12 3x/wk for 4 weeks Certification From: 05/13/13 Certification To: 06/12/13 Kevin Weber, PT Patient Name: Rosario Malik/: 1965/ Juanjose Mariothy Gabino, PT - 05/13/2013 11:42 AM PDT . 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 She noted immediate pain in her left upper chest, that cu rrently radiates across the entire chest when she tries to perform any lifting, or pushing a nd pulling tasks. 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 Rehabilitation potential: Patient demonstrates [...] From: 05/13/13 Certification To: 06/12/13 Treatment Plan/Interventions 98632 PT Evaluation;20645 Therapeutic Exercise;46268 Therapeutic Activity;81202 Ultrasound; 46426 Electrical Stimulation - Attended;Cold Pack;Hot Pack Patient [...] | | | | | | [place] [address] | | | | | | [phone] | | | | | | | | +--------+---------+ + + + | 03/01/ | Office | Pulmonology | Mukul Clark MD | | | 2020 | Visit | | [address] | | | | | | [place] | | | | | | [phone] | | | | | | | | +--------+---------+ + + + documented as of this encounter Visit Diagnoses + + | Diagnosis | + + | Sprain of chest wall - Primary Other specified sites of sprains and strains | + + | Fibromyalgia Mylagia and myositis, unspecified | + + documented in this encounter"
--- OUTSIDE RECORDS SUMMARY | ~2019-09-27 | XMS | Encounter Summary ---
Demographics + + + | Address | [address] | | | [place] [address] | + + + | Home Phone [...] Team Providers + +------+ + | Care Freezing Room Worker Name | Role | Phone | [...] Closed | | Cardiac | Diagnoses | Aniblajose, | [facility] | | | | Rehabilitatio | copd | MD Jared | | | | | n | Procedures | [address] | Rehabilitatio | | | | | [facility] | [address] | n [address] | | | | | EXERCISE | [place], | [place] | | | | | | [place] [address] | [place], [place] | | | | | | Phone: | [phone] | | | | | | [phone] | Phone: | | | | | | Fax: | [phone] | | | | | | [phone] | Fax: | | | | | | | [phone] | +--------+--------+ + + + + Encounter [...] | | | REHABILITATION [address] [place], | unspecified COPD | | | | [address] [place] | [place] [address] | type (HCC) (Primary | | | | [place] [address] | [phone] | Dx); Mild persistent | | | | [phone] | | asthma without | | | [...] [place] | | | | | | [id number] | | | | | | | | +--------+---------+ + + + | 11/24/ | Office | Cardiology | [place], | | | 2019 | Visit | | SINDHU Erickson [address] | | | | | | [place] | | | | | | [place] [address] | | | | | | [phone] | | | | | | | | +--------+---------+ + + + | 03/01/ | Office | Pulmonology | Mukul Clark MD | | | 2020 | Visit | | [address] | | | | | | [place] [facility] [place] | | | | | | [address] [...]
--- OUTSIDE RECORDS SUMMARY | ~2019-09-27 | XMS | Encounter Summary ---
Demographics + + + | Address | [address] | | | [place] [address] | + + + | Home Phone [...] Team Providers + +------+ + | Care Clipping Marker Name | Role | Phone | [...] + + | 07/15/ | Office | [facility] | Kevin Sandoval, | COPD exacerbation | | 2013 | Visit | PULMONARY [address] | [address] | ([facility]) (Primary Dx); | | | | [place], | [place], [place] | COPD (chronic | | | | [place] [address] | [address] | obstructive | | | | [phone] | | pulmonary disease) | | | | | | ([facility]); Hypoxemia | +--------+---------+ + [...] [facility]) 10/28/2012 Overview: Managed by [facility] along with hypothyroidism Osteoarthritis Social History: [...] send order to [facility] D isp: 1 each, Rfl: 0 Respiratory [...] breath sounds few expiratory wheezes bilaterally. 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 No dullness to percussion. [...] documented in this encounter Procedure Notes TRINITY LOVETTMD - 07/15/2013 12:00 AM PDTAssociated Order(s): DIAGNOSTIC [...] [place] | | | | | | [address] | | | | | | | | +--------+---------+ + + + | 11/24/ | Office | Cardiology | [place], | | | 2019 | Visit | | SINDHU Erickson [address] | | | | | | [place], | | | | | | [place] [address] | | | | | | [phone] | | | | | | | | +--------+---------+ + + + | 03/01/ | Office | Pulmonology | Mukul Clark MD | | | 2020 | Visit | | [address] | | | | | | [place] | | | | | | [phone] | | | | | | | [...]
--- OUTSIDE RECORDS SUMMARY | ~2019-09-27 | XMS | Encounter Summary ---
Demographics + + + | Address | [address] | | | [place] [address] | + + + | Home Phone [...] Team Providers + +------+ + | Care Tea Bag Packer Name | Role | Phone | [...] | (Primary Dx) | | | | [address] | [address] | | | | | [phone] | | | +--------+---------+ + + + [...] | | | | | | [place] [address] | | | | | | [phone] | | | | | | | | +--------+---------+ + + + | 03/01/ | Office | Pulmonology | Mukul Clark MD | | | 2020 | Visit | | [address] | | | | | | [place] | | | | | | [address] | | | | | | | | +--------+---------+ + + + documented as of this encounter Results XR Foot Left 3 + Vw (01/07/2013 2:30 PM PST) + + | Specimen | + + | | + + + + + | Narrative | Performed At | + + + | [facility] | [place] | | Department [address] [facility] [place] | [facility] | | [ rep ct street[address]] [ rep ct [facility] | | st zip] Signed | - IMAGING | | | | | Patient Name: JADYN SCHMITZ | | | Physician: FRANCA : 1965 Age: 47 Sex: F Unit | | | #: [id number] Exam Date: 01/07/13 Location: | | | [facility] Report #: [id number] Page: | | | %(RAD)RES..mtdd.print.filter("pg") of %(RAD) | | | RES..mtdd.print.filter("tpg") | | | | | | Accession Number: [id number] | | | LEFT FOOT, 01/07/2013 CLINICAL [...] Transcribed | | | Date/Time: 01/07/2013 15:01 Community Center Coordinator: | | | <<Signature on File>> | | | Kobe | | | MD Tor01/07/13 1705 <Electronically signed by Kobe Lentz MD> | | | Kobe Lentz MD 01/07/13 5600 Community Center Coordinator: [employer] | | | Sutkcaoixuodg09/14/13 1501 Lencho Astorga MD | | + + + + + + + + | Performing | Address | City/State/Zipcode | Phone Number | | Organization | | | | + + + + + | [address] | [address] | [place] | [phone] | | [facility] | | [address] | | | - IMAGING | | | | + + + + + documented in this encounter Visit Diagnoses + + | Diagnosis | + + | Contusion of foot including toes - Primary Contusion of foot | + + documented in this encounter
--- OUTSIDE RECORDS SUMMARY | ~2019-09-27 | XMS | Encounter Summary ---
Demographics + + + | Address | [address] | | | [place] [address] | + + + | Home Phone [...] Providers + +------+ + | Care Textile Supervisor Name | Role | Phone | [...] | | | | [facility] | [address] | n [address] | | | | | EXERCISE | [place], | [place] | | | | | | [place] [address] | [place], [place] | | | | | | Phone: | [address] | | | | | | [phone] | Phone: | | | | | | Fax: | [phone] | | | | | | [phone] | Fax: | | | | | | | [phone] | +--------+--------+ + + + + Encounter Details +--------+---------+ + + + | Date | Type | Department | Care Team | Description | +--------+---------+ + + + | 07/23/ | Office | [facility] | Jared Mcdonough, | Chronic obstructive | | 2017 | Visit | MED CTR CARDIAC | MD [address] | pulmonary disease, | | | | REHABILITATION [address] [place], | unspecified COPD | | | | [address] [place] | [place] [address] | type (HCC) (Primary | | | | [place] [address] | [phone] | Dx); Mild persistent | | | | [phone] | | asthma without | | | [...] documented as of this encounter Progress Notes Aries, Luke - 07/23/2016 10:15 AM PDTPatient tolerated exercise [...] | | | | | | [place] [address] | | | | | | [phone] | | | | | | | | +--------+---------+ + + + | 03/01/ | Office | Pulmonology | Mukul Clark MD | | | 2020 | Visit | | [address] | | | | | | [place] | | | | | | [address] | | | | | | | [...]
--- OUTSIDE RECORDS SUMMARY | ~2019-09-27 | XMS | Encounter Summary ---
Demographics + + + | Address | [address] | | | [place] [address] | + + + | Home Phone [...] Team Providers + +------+ + | Care Bilingual Operator Name | Role | Phone | [...] [address] | | | | | [place], | [place], | | | | | [place] [address] | [place] [address] | | | | | [phone] | [phone] | | | | | | | [...] [place] | | | | | | [address] | | | | | | | | +--------+---------+ + + + | 11/24/ | Office | Cardiology | [place], | | | 2019 | Visit | | SINDHU Erickson [address] | | | | | | [place] | | | | | | [place] [address] | | | | | | [phone] | | | | | | | [...]
--- OUTSIDE RECORDS SUMMARY | ~2019-09-27 | XMS | Encounter Summary ---
Demographics + + + | Address | [address] | | | [place] [address] | + + + | Home Phone [...] Team Providers + +------+ + | Care Driller Hand Name | Role | Phone | [...] Alonso MD | | | | | [place], | | | | | | [place] [address] | | | | | | [phone] | | | +--------+--------+ + + + [...] | | | | | | [place] [address] | | | | | | [phone] | | | | | | | [...]
--- OUTSIDE RECORDS SUMMARY | ~2019-09-27 | XMS | Encounter Summary ---
Demographics + + + | Address | [address] | | | [place] [address] | + + + | Home Phone [...] Team Providers + +------+ + | Care Cad Programmer Name | Role | Phone | [...] Provider Unknown | | | | | [place], [place] | [phone] | | | | | [address] | | | | | | [phone] | | | +--------+ + + + [...] [place] | | | | | | [address] | | | | | | | | +--------+---------+ + + + | 11/24/ | Office | Cardiology | [place], | | | 2019 | Visit | | SINDHU Erickson [address] | | | | | | [place] | | | | | | [place] [address] | | | | | | [phone] | | | | | | | | +--------+---------+ + + + | 03/01/ | Office | Pulmonology | Mukul Clark MD | | | 2020 | Visit | | [address] | | | | | | [place] | | | | | | [address] | | | | | | | [...]
--- OUTSIDE RECORDS SUMMARY | ~2019-09-27 | XMS | Encounter Summary ---
Demographics + + + | Address | [address] | | | [place] [address] | + + + | Home Phone [...] Providers + +------+ + | Care Machine Clothing Replacer Name | Role | Phone | + [...] OCCUPATIONAL HEALTH | MD Ozzy Need | sites of sprains and | | | | [place] [address] | updated address | strains (Primary | | | | [address] [place] | | Dx) | | | | [place] | | | | | | [address] | | | | | | [phone] | | | +--------+ + + + [...] | | | | | | [place] [address] | | | | | | [phone] | | | | | | | | +--------+---------+ + + + | 03/01/ | Office | Pulmonology | Mukul Clark MD | | | 2020 | Visit | | [address] | | | | | | [place] | | | | | | [address] | | | | | | | | +--------+---------+ + + + documented as of this encounter Visit Diagnoses + + | Diagnosis | + + | Other specified sites of sprains and strains - Primary | + + documented in this encounter"
--- OUTSIDE RECORDS SUMMARY | ~2019-09-27 | XMS | Encounter Summary ---
Demographics + + + | Address | [address] | | | [place] [address] | + + + | Home Phone [...] Team Providers + +------+ + | Care Squeegee Finisher Name | Role | Phone | [...] | | | | | pulmonary | [address] | [address] | | | | | disease, | [place], | [place] | | | | | unspecified | [place] [address] | [place], [place] | | | | | COPD type | Phone: | [address] | | | | | (HCC) | [phone] | Phone: | | | | | Pulmonary | Fax: | [phone] | | | | | emphysema, | [phone] | Fax: | | | | | unspecified | | [phone] | | | | | emphysema | | | | | | | type ([facility]) | | | +--------+ + + + + + Encounter Details +--------+---------+ + + + | Date | Type | Department | Care Team | Description | +--------+---------+ + + + | 05/21/ | Office | [facility] | Sharonda Delmycaitie, | Chronic obstructive | | 2017 | Visit | MED CTR CARDIAC | [address] | pulmonary disease, | | | | REHABILITATION [address] | [place], | unspecified COPD | | | | [address] [place] | [place] [address] | type (HCC) (Primary | | | | [place] [address] | [phone] | Dx) | | | | [phone] | | | +--------+---------+ + + + [...] encounter Progress Notes Tricia Herron RRT - 05/21/2016 10:37 AM PDT [facility] CARDIAC REHABILITATION [address] [place] [address] Cardiac Rehab Date: 05/21/2016 Patient Information Patient [...] [place] | | | | | | [address] | | | | | | | | +--------+---------+ + + + | 11/24/ | Office | Cardiology | [place], | | | 2019 | Visit | | SINDHU Erickson [address] | | | | | | [place], | | | | | | [place] [address] | | | | | | [phone] | | | | | | | | +--------+---------+ + + + | 03/01/ | Office | Pulmonology | Mukul Clark MD | | | 2020 | Visit | | [address] | | | | | | [place] | | | | | | [address] | | | | | | | | +--------+---------+ + + + documented as of this encounter Visit Diagnoses + + | Diagnosis | + + | Chronic obstructive pulmonary disease, unspecified COPD type (HCC) - Primary | + + documented in this encounter"
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
--- OUTSIDE RECORDS SUMMARY | ~2019-09-27 | XMS | Encounter Summary ---
Demographics + + + | Address | [address] | | | [place] [address] | + + + | Home Phone [...] Providers + +------+ + | Care Java Development Team Lead Name | Role | Phone | [...] + + | 08/08/ | Virtual | [facility] | Mukul Clark MD | Abnormal lung | | 2019 | Office | PULMONOLOGY [address] | function test | | | Visit | [address] | [place] ELIZABETH MD | (Primary Dx); | | | | [place], [place] | [address] | Centrilobular | | | | [address] | | emphysema ([facility]); | | | | [phone] | | Gastroesophageal | | | | [...] bidirectional video se ssion. Service was provided [id number] with the patient via interactive videoconferencing Coding will be based on Medical Decision Making. You have chosen to receive care through the use of telemedicine. Telemedicine enables [facility] care providers at different locations to provide [...] is not policy in some hospitals like [facility] of not giving out samples. She [...] COPD, obstructive arthritis. 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 As per her mother the patient and [...] being planned for a Chanelle fundoplication in [facility] in November. 05/13/2016 The patient [...] She is awaiting a call back from [facility]. 07/09/2017 The patient has been [...] duct (pouch) (HCC) 10/28/2012 Overview: Managed by [facility] along with hypothyroidism Bilateral renal [...] Procedure Laterality Date COLONOSCOPY 03/2010 COLONOSCOPY 1996 [facility] HAMMER TOE SURGERY right sided HAND ARTHROPLASTY Right 06/18/2018 Procedure: Right Basal Joint Arthroplasty, tendon interposition; Surgeon: Jesus Chowdary nd, DO; Location: [facility] MAIN OR HERNIA REPAIR 11/29/2015 [facility] [place] HIATAL HERNIA REPAIR Hiatal hernia KNEE SURGERY right OTHER SURGICAL HISTORY 02/28/2014 [facility] with Radial approach; Laterality: Left; Surgeon: Jared Mcdonough MD; Location: [facility] CARDIO VASCULAR LAB MILES AND BSO Ovarian cysts, not cancer TONSILLECTOMY Age 6 TURBT N/A 11/22/2015 Procedure: Cystoscopy, Hydrodistention & Bladder Biopsy; Surgeon: Andriy Weber MD ; Location: [facility] MAIN OR WRIST SURGERY right Social [...] file Gets together: Not on file Attends protestant service: Not on file Active member of [...] send order to [facility]. (Patient taking differently: Please provide patidrew nt with necessary BIPAP supplies (she did not specify, okay to send order as appropriate) Di agnosis Code(s)327.23 . Length of Need 99 months. Please send order to [facility].) 1 each 0 Respiratory Therapy Supplies [facility] Change CPAP back to 11-14 cm H2O. All necessary suppl ies. No oxygen bleed in. Diagnosis Code(s)327.23. Length of Need: Lifetime. Please send orde r to [facility]. This is not a new [...] lifestyle modification. She will follow up with [facility]. 3. Sleep apnea Continue regular [...] Clark MD Pulmonary and Critical Care Medicine [address] , [place] [address] Dictation software, [employer] used which may contain error for similar [...] [place] | | | | | | [address] | | | | | | | | +--------+---------+ + + + | 11/24/ | Office | Cardiology | [place], | | | 2019 | Visit | | SINDHU Erickson [address] | | | | | | [place], | | | | | | [place] [address] | | | | | | [phone] | | | | | | | | +--------+---------+ + + + | 03/01/ | Office | Pulmonology | Mukul Clark MD | | | 2020 | Visit | | [address] | | | | | | [place] | | | | | | [phone] | | | | | | | [...] MD, | | | 08/19/2019 12:26 PM [facility] | | |obstructive physiology that becomes mild [...] | | |12:26 PM PDT | | |[facility] | | + + + documented in [...]
--- OUTSIDE RECORDS SUMMARY | ~2019-09-27 | XMS | Encounter Summary ---
Demographics + + + | Address | [address] | | | [place] [address] | + + + | Home Phone [...] Team Providers + +------+ + | Care Reservoir Engineering Manager Name | Role | Phone | [...] | RN | | | | | [place], | | | | | | [place] [address] | | | | | | [phone] | | | +--------+ + + + [...] | | | | | | [place] [address] | | | | | | [phone] | | | | | | | | +--------+---------+ + + + | 03/01/ | Office | Pulmonology | Mukul Clark MD | | | 2020 | Visit | | [address] | | | | | | [place] | | | | | | [address] | | | | | | | | +--------+---------+ + + + documented as of this encounter Visit Diagnoses Not on filedocumented in this encounter"
--- OUTSIDE RECORDS SUMMARY | ~2019-09-27 | XMS | Encounter Summary ---
Demographics + + + | Address | [address] | | | [place] [address] | + + + | Home Phone [...] Providers + +------+ + | Care Project Internship Name | Role | Phone | [...] + | [facility]28/ | [facility] | [facility] [place] | [place], | COPD exacerbation | | 2012 | Visit | PULMONARY [address] | Loreta Alonso MD | ([facility]) (Primary Dx); | | | | [place], | | GARR[place] (obstructive | | | | [place] [address] | | sleep apnea); | | | | [phone] | | Central sleep apnea | +--------+---------+ [...] MD Ayaka Rasheed Pulmonary and Critical Care [facility] [address] [place], [address] HPI Rosario Malik is a 47 y.o. female patient of Juan Cherry here today for follow up of COPD. She notes that she moved back from [place] in November at some point. She had a difficult t francy while in [place], requiring hospitalization 2 times at [facility], once in September. She returned, and developed symptoms of an exacerbation, and called in. We referred her to urgent care, and she went to emergency room. She was hypoxemic despite nebulizers, and so wa s admitted. She was in the hospital for two nights. Before she left for [place], she was on Advair and Combivent. She then added Ventolin/Prov entil. She then started Spiriva at her most recent hospitalization. Curently, she is on Spir aravind, Advair, Combivent, ProAir, and albuterol nebulizers. She was given levofloxacin at discharge, but it apparently reacts with her Geodon, so was n ot filled by Michelle. She is having issues getting the albuterol [...] not cancer Colonoscopy 03/2010 Colonoscopy: [address] 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 30 tablet 0 Respiratory Therapy Supplies [facility] Active Change CPAP back to 11-14 cm H2O. All necessar y supplies. No oxygen bleed in. Diagnosis Code(s)327.23. Length of Need: Lifetime. Please se nd order to [facility]. This is not [...] type: ResMedS9 auto CPAP Home Health Company: [employer] CPAP Pressure: 11-14 cmH2O Median Titrated Pressure: [...] made to ensure accuracy; however, inadvertent computerized transcriptionist errors may be pre sent. documented in t his encounter Plan of Treatment +--------+---------+ + + + | Date | Type | Specialty | Care Team | Description | +--------+---------+ + + + | 09/27/ | Office | Sleep Medicine | Meghan Garcia MD | | | 2019 | Visit | | [address] | | | | | | [place], [place] | | | | | | [address] | | | | | | | | +--------+---------+ + + + | 11/24/ | Office | Cardiology | [place], | | | 2019 | Visit | | SINDHU Erickson [address] | | | | | | [place], | | | | | | [place] [address] | | | | | | [phone] | | | | | | | | +--------+---------+ + + + | 03/01/ | Office | Pulmonology | Mukul Clark MD | | | 2020 | Visit | | [address] | | | | | | [place] | | | | | | [address] | | | | | | | [...]
--- OUTSIDE RECORDS SUMMARY | ~2019-09-27 | XMS | Encounter Summary ---
Demographics + + + | Address | [address] | | | [place] [address] | + + + | Home Phone [...] Providers + +------+ + | Care Product Promoter Retail Pet Name | Role | Phone | + [...] + + | [facility]/12/ | [facility] | [place], | COPD exacerbation | | 2013 | Visit | PULMONARY [address] | Loreta Alonso MD | ([facility]) (Primary Dx); | | | | [place], | | Sprain of chest | | | | [place] [address] | | wall; GARRY | | | | [phone] | | (obstructive sleep | | | [...] perform them regularly on you r own. 2708-1522 Rafael Perez, [address] [place] [address]. All rights reserve d. This information is not intended as a substitute for professional medical care. Always fo llow your healthcare professional's instructions. documented in this encounter Progress Notes Loreta London MD - 04/12/2013 9:12 AM PSTFormatting of this note might be differe nt from the original. Pulmonary Follow Up Note Loreta London MD [place] [facility] Critical [facility] [address] [place], [address] HPI Rsoario Malik is a 48 y.o. female patient [...] and machine. She took it in to [facility] today for servicing. 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 Findings consistent with moderate to severe [...] days. 3 tablet 0 Respiratory Therapy Supplies [facility] Please provide patient with necessary CPAP supplies ( she did not specify, okay to send order as appropriate) Diagnosis Code(s)327.23 . Length of Need 99 months. Please send order to [facility]. 1 each 0 Respiratory Therapy [...] has essentially been living from exacerbation to [facility] since return from [place] without clear explanation. Factors to consider: medication no n compliance, ongoing tobacco use (reports this per ER notes, urgent care notes, but denies here), virus exposure, allergen exposure, and known CPAP non compliance. I will start Danika sp and place her back on prednisone [...] not been using her CPAP as m [facility] as she should per last downloads [...] made to ensure accuracy; however, inadvertent computerized veterans service officer errors may be pre sent. documented in t his encounter Procedure Notes TRINITY WATKINS - 04/12/2013 12:00 AM PSTAssociated Order(s): DIAGNOSTIC REPORT - [...] ST | | | | | | [place], [place] | | | | | | [address] | | | | | | | | +--------+---------+ + + + | 11/24/ | Office | Cardiology | [place], | | | 2019 | Visit | | SINDHU Erickson [address] | | | | | | [place], | | | | | | [place] [address] | | | | | | [phone] | | | | | | | | +--------+---------+ + + + | 03/01/ | Office | Pulmonology | Mukul Clark MD | | | 2020 | Visit | | [address] | | | | | | [place] | | | | | | [address] | | | | | | | | +--------+---------+ + + + + + +--------+ + + | Name | Type | Priori | Associated Diagnoses | Order Schedule | | | | ty | | | + + +--------+ + + | Ambulating oximetry, | Respiratory | Routin | COPD exacerbation | Expected: | | clinic, | Care | e | ([facility]) | 04/12/2013, Expires: | | qualification | [...] + | [facility] | [address] | [place] | [phone] | | [facility] | | [address] | | | - LABORATORY | | | | + + + + + | [facility] | [address] | [place], [place] | | | [facility] | | [address], [facility] | | | - LABORATORY | [...]
--- OUTSIDE RECORDS SUMMARY | ~2019-09-27 | XMS | Encounter Summary ---
Demographics + + + | Address | [address] | | | [place] [address] | + + + | Home Phone [...] Team Providers + +------+ + | Care Chef Manager Name | Role | Phone | + +------+ + PCP | Unavailable | + +------+ + Encounter Details +--------+ + + + + | Date | Type | Department | Care Team | Description | +--------+ + + + + | 01/24/ | Hospital | [facility] | Avi Guru Garzon, | | | 2009 | Encounter | MED CTR EMERGENCY | MD [address] | | | | | CENTER [address] | [facility] [place] | | | | | [place], [place] | [place] [address] | | | | | [address] | [phone] | | | | | [phone] | | | +--------+ + + + [...] [place] | | | | | | [address] | | | | | | | | +--------+---------+ + + + | 11/24/ | Office | Cardiology | [place], | | | 2019 | Visit | | SINDHU Erickson [address] | | | | | | [place] | | | | | | [place] [address] | | | | | | [phone] | | | | | | | | +--------+---------+ + + + | 03/01/ | Office | Pulmonology | Mukul Clark MD | | | 2020 | Visit | | [address] | | | | | | [place] | | | | | | [address] | | | | | | | | +--------+---------+ + + + documented as of this encounter Visit Diagnoses Not on filedocumented in this encounter"
--- OUTSIDE RECORDS SUMMARY | ~2019-09-27 | XMS | Encounter Summary ---
Demographics + + + | Address | [address] | | | [place] [address] | + + + | Home Phone [...] Team Providers + +------+ + | Care Knife Operator Name | Role | Phone | [...] + + | 01/24/ | Telephone | [facility] | Jared Mcdonough, | Other (prescription | | 2013 | | CARDIOLOGY [address] | MD [address] | clarification) | | | | [place], | [place], | | | | | [place] [address] | [place] [address] | | | | | [phone] | [phone] | | | | | | | [...] - 01/24/2014 2:04 PM PSTReceived fax from [facility]: "Please verify medication - Patient is [...] referred to is (cholchicine) Colcrys 0.6mg BID. [facility] contacted and informed that this drug is [...] | | | | | | [place] [address] | | | | | | [phone] | | | | | | | | +--------+---------+ + + + | 03/01/ | Office | Pulmonology | Mukul Clark MD | | | 2020 | Visit | | [address] | | | | | | [place] | | | | | | [phone] | | | | | | | | +--------+---------+ + + + documented as of this encounter Visit Diagnoses Not on filedocumented in this encounter
--- OUTSIDE RECORDS SUMMARY | ~2019-09-27 | XMS | Encounter Summary ---
Demographics + + + | Address | [address] | | | [place] [address] | + + + | Home Phone [...] [place] | | | | | [address] | [place] [address] | | | | | [phone] | [phone] | | | | | | | [...] | | | | | | [place] [address] | | | | | | [phone] | | | | | | | [...]
--- OUTSIDE RECORDS SUMMARY | ~2019-09-27 | XMS | Encounter Summary ---
Demographics + + + | Address | [address] | | | [place] [address] | + + + | Home Phone [...] Team Providers + +------+ + | Care Liquefied Petroleum Gasfitter Name | Role | Phone | + +------+ + | Juan Cherry DO | PCP | | + +------+ + Encounter Details +--------+ + + + + | Date | Type | Department | Care Team | Description | +--------+ + + + + | 03/05/ | Hospital | [facility] IP | Conversion | Pain | | 2017 | Encounter | CONVERSION [address] | Transaction, | | | | | [address] | Provider Unknown | | | | | [place], [place] | [phone] | | | | | [address] | | | | | | [phone] | | | +--------+ + + + [...] | | | send order to [facility] | | | | | | [...] | 0 | 10/13/19 | | | Bnadcdsxzm-WXZF-Ywgz | mouth as needed. | | | 16 | 7 | | -Cod [id number] MG | | | | | | [...] [place] | | | | | | [address] | | | | | | | | +--------+---------+ + + + | 11/24/ | Office | Cardiology | [place], | | | 2019 | Visit | | SINDHU Erickson [address] | | | | | | [place], | | | | | | [place] [address] | | | | | | [phone] | | | | | | | | +--------+---------+ + + + | 03/01/ | Office | Pulmonology | Mukul Clark MD | | | 2020 | Visit | | [address] | | | | | | [place] | | | | | | [address] | | | | | | | [...]
--- OUTSIDE RECORDS SUMMARY | ~2019-09-27 | XMS | Encounter Summary ---
Demographics + + + | Address | [address] | | | [place] [address] | + + + | Home Phone [...] Team Providers + +------+ + | Care Garment Tag Stringer Name | Role | Phone | + [...] | Concussion | Aaron Kim MD | Vice President Industrial Relations [address] | | | Required | | with brief | [address] | [place] | | | | | loss of | [address] | [place], [place] | | | | | consciousnes | [place], | [address] | | | | | s Word | [place] [address] | Phone: | | | | | finding | Phone: | [phone] | | | | | difficulty | [phone] | Fax: | | | | | [id number] | Fax: | [phone] | | | | | (ICD-10-CM) | [phone] | | | | | | - [...] + + | 06/20/ | Hospital | [facility] | Aaron Rodriguez, | Impaired memory | | 2017 | Encounter | MED CTR SPEECH | MD [address] | (Primary Dx); | | | | THERAPY [address] | [place] | Concussion with | | | | [place], | [address] | brief (less than one | | | | [place] [address] | | hour) loss of | | | | [phone] | Kathi Soto, | consciousness; | | [...] | | | | [facility]. | | | | | | | [...] | 0 | 10/13/19 | | | Fsjptiugic-SEAZ-Ddik | mouth as needed. | | | 16 | 7 | | -Cod [id number] MG | | | | | | [...] Speech Pathologist - 06/21/2016 1:45 PM PDT [facility] SPEECH THERAPY [address] [place] [address] Speech Therapy Daily Treatment Note Date: 06/20/2016 Patient Information Patient Name: Rosario Malik Date of : 1965 Age: 51 y.o. Encounter Diagnoses Code Name Primary? R41.3 Impaired memory Yes S06.0X9A Concussion with brief (less than one hour) loss of consciousness R41.842 Visuospatial deficit R47.89 Word finding difficulty Date of Onset: 03/15/2016 Referring Provider: Aaron Rodriguez MD Rehab Precautions Office Visit from 05/01/2016 in [facility] THERAPY PT OP Rehab Precautions Precautions None Rehab Learning Style WSM QUICK MIXER OPERATOR OP EVAL from 05/16/2016 in [facility] SPEECH THERAPY Office V isit from 05/01/2016 in [facility] CTR THERAPY PT OP Learning [...] | | | | | | [place] [address] | | | | | | [phone] | | | | | | | | +--------+---------+ + + + | 03/01/ | Office | Pulmonology | Mukul Clark MD | | | 2020 | Visit | | [address] | | | | | | [place] | | | | | | [address] | | | | | | | [...]
--- OUTSIDE RECORDS SUMMARY | ~2019-09-27 | XMS | Encounter Summary ---
Demographics + + + | Address | [address] | | | [place] [address] | + + + | Home Phone [...] Providers + +------+ + | Care Gas Cutter Name | Role | Phone | [...] | SR | | | | | [address] | | | | | | [place], [place] | | | | | | [address] | | | | | | [phone] | | | +--------+ + + + [...] [place] | | | | | | [address] | | | | | | | | +--------+---------+ + + + | 11/24/ | Office | Cardiology | [place], | | | 2020 | Visit | | SINDHU Erickson [address] | | | | | | [place] | | | | | | [place] [address] | | | | | | [phone] | | | | | | | | +--------+---------+ + + + | 03/01/ | Office | Pulmonology | Mukul Clark MD | | | 2020 | Visit | | [address] | | | | | | [place] | | | | | | [address] | | | | | | | [...]
--- OUTSIDE RECORDS SUMMARY | ~2019-09-27 | XMS | Encounter Summary ---
Demographics + + + | Address | [address] | | | [place] [address] | + + + | Home Phone [...] Providers + +------+ + | Care Tree Expert Name | Role | Phone | [...] 2014 | | [address] | [address] [place] | | | | | [place], | [place], | | | | | [place] [address] | [place] [address] | | | | | [phone] | [phone] | | | | | | | [...] [place] | | | | | | [address] | | | | | | | | +--------+---------+ + + + | 11/24/ | Office | Cardiology | [place], | | | 2019 | Visit | | SINDHU Erickson [address] | | | | | | [place] | | | | | | [place] [address] | | | | | | [phone] | | | | | | | | +--------+---------+ + + + | 03/01/ | Office | Pulmonology | Mukul Clark MD | | | 2020 | Visit | | [address] | | | | | | [place] | | | | | | [address] | | | | | | | | +--------+---------+ + + + documented as of this encounter Visit Diagnoses Not on filedocumented in this encounter"
--- OUTSIDE RECORDS SUMMARY | ~2019-09-27 | XMS | Encounter Summary ---
Demographics + + + | Address | [address] | | | [place] [address] | + + + | Home Phone [...] Team Providers + +------+ + | Care Take Out Waiter/Waitress Name | Role | Phone | + [...] + + | 11/20/ | [facility] | [facility] | Dre Gibson MD | Diverticulitis | | 2013 | Visit | CARE [address] | [address] | (Primary Dx); | | | | [place] | [place] | Abdominal pain | | | | [address] | [address] | | | | | [phone] | | | +--------+---------+ + + + [...] color of the stools) Unexpected vaginal bleeding 8089-5963 [facility], [address] [place] [address], [place] [address]. All rights reserve d. This information is [...] [place] | | | | | | [address] | | | | | | | | +--------+---------+ + + + | 11/24/ | Office | Cardiology | [place], | | | 2019 | Visit | | SINDHU Erickson [address] | | | | | | [place], | | | | | | [place] [address] | | | | | | [phone] | | | | | | | | +--------+---------+ + + + | 03/01/ | Office | Pulmonology | Mukul Clark MD | | | 2020 | Visit | | [address] | | | | | | [place] | | | | | | [address] | | | | | | | [...] | 1.010 | | | | | [place], | | | | | | [facility], [...]
--- OUTSIDE RECORDS SUMMARY | ~2019-09-27 | XMS | Encounter Summary ---
Demographics + + + | Address | [address] | | | [place] [address] | + + + | Home Phone [...] Providers + +------+ + | Care Radio Rigger Name | Role | Phone | [...] + + | 06/17/ | Refill | [facility] | Mukul Clark MD | Medication Refill | | 2020 | | PULMONOLOGY [address] | | | | | [address] [place] | [place], [place] | | | | | [place], [place] | [address] | | | | | [address] | | | | | | [phone] | | | +--------+--------+ + + + [...] Reynolds MD Pulmonary and Critical Care Medicine [facility] [address], [facility] [place] [address] documente d in this encounter Plan of [...] [place] | | | | | | [address] | | | | | | | | +--------+---------+ + + + | 11/24/ | Office | Cardiology | [place], | | | 2019 | Visit | | SINDHU Erickson [address] | | | | | | [place], | | | | | | [place] [address] | | | | | | [phone] | | | | | | | | +--------+---------+ + + + | 03/01/ | Office | Pulmonology | Mukul Clark MD | | | 2020 | Visit | | [address] | | | | | | [place] | | | | | | [address] | | | | | | | | +--------+---------+ + + + documented as of this encounter Visit Diagnoses + + | Diagnosis | + + | Centrilobular emphysema (HCC) - Primary | + + documented in this encounter"
--- OUTSIDE RECORDS SUMMARY | ~2019-09-27 | XMS | Encounter Summary ---
Demographics + + + | Address | [address] | | | [place] [address] | + + + | Home Phone [...] Team Providers + +------+ + | Care Learning Engineer Name | Role | Phone | [...] [address] | | | | | [place], | [place], | | | | | [place] [address] | [place] [address] | | | | | [phone] | [phone] | | | | | | | [...] | | | | | | [place] [address] | | | | | | [phone] | | | | | | | | +--------+---------+ + + + | 03/01/ | Office | Pulmonology | Mukul Clark MD | | | 2020 | Visit | | [address] | | | | | | [place] | | | | | | [address] | | | | | | | [...]
--- OUTSIDE RECORDS SUMMARY | ~2019-09-27 | XMS | Encounter Summary ---
Demographics + + + | Address | [address] | | | [place] [address] | + + + | Home Phone [...] Team Providers + +------+ + | Care Help Desk Technician Name | Role | Phone | [...] | sleep apnea) | | | | [place], | | | | | | [place] [address] | | | | | | [phone] | | | +--------+ + + + [...] | | | | | | [place] [address] | | | | | | [phone] | | | | | | | | +--------+---------+ + + + | 03/01/ | Office | Pulmonology | Mukul Clark MD | | | 2020 | Visit | | [address] | | | | | | [place] | | | | | | [address] | | | | | | | | +--------+---------+ + + + documented as of this encounter Visit Diagnoses + + | Diagnosis | + + | GARRY (obstructive sleep apnea) Obstructive sleep apnea (adult) (pediatric) | + + documented in this encounter"
--- OUTSIDE RECORDS SUMMARY | ~2019-09-27 | XMS | Encounter Summary ---
Demographics + + + | Address | [address] | | | [place] [address] | + + + | Home Phone [...] + +------+ + | Care Customer Service Specialist Name | Role | Phone [...] [address] | | | | | [place], | [place], [place] | | | | | [place] [address] | [address] | | | | | [phone] | | | +--------+--------+ + + + [...] | | | | | | [place] [address] | | | | | | [phone] | | | | | | | [...]
--- OUTSIDE RECORDS SUMMARY | ~2019-09-27 | XMS | Encounter Summary ---
Demographics + + + | Address | [address] | | | [place] [address] | + + + | Home Phone [...] Team Providers + +------+ + | Care Plastics Nurse Name | Role | Phone | + +------+ + | Juan Cherry DO | PCP | | + +------+ + Reason for Visit + +--------+ + | Reason | Onset | Comments | | | Date | | + +--------+ + | Hematuria | 07/24/ | | | | 2018 | | + +--------+ + | Bladder Pain | 07/24/ | | | | 2017 | | + +--------+ + Encounter Details +--------+ + + + + | Date | Type | Department | Care Team | Description | +--------+ + + + + | 07/24/ | Telephone | [facility] | Andriy Weber | Hematuria; Bladder | | 2017 | | [address] | MD [address] | Pain | | | | [place] | [place] | | | | | [address] | [place] [address] | | | | | [phone] | [phone] | | | | | | | [...] Telephone Encounter - Loraine Hawkins RN - 07/24/2017 3:24 PM PDTGretchen calls to say she just voided for the second time since her treatment this morning and it was maroon red. The void right after the treatment was clear yellow. She denies fever but has significant b ladder pain for which she's taking Tylenol and tramadol. Encouraged to drink plenty of fluid s and go to ER if she develops fever or has bleeding with clots or is unable to void. Advise d I will let Dr Weber know and let her know what he advises regarding her 4th and final juwan atment of this series of bladder cocktails that is scheduled for 08/06/17. Dr Weber notified and concurs with the advice she was given. documented in this encounter Plan of Treatment [...] [place] | | | | | | [address] | | | | | | | | +--------+---------+ + + + | 11/24/ | Office | Cardiology | [place], | | | 2019 | Visit | | SINDHU Erickson [address] | | | | | | [place], | | | | | | [place] [address] | | | | | | [phone] | | | | | | | | +--------+---------+ + + + | 03/01/ | Office | Pulmonology | Mukul Clark MD | | | 2020 | Visit | | [address] | | | | | | [place] | | | | | | [address] | | | | | | | | +--------+---------+ + + + documented as of this encounter Visit Diagnoses Not on filedocumented in this encounter"
--- OUTSIDE RECORDS SUMMARY | ~2019-09-27 | XMS | Encounter Summary ---
Demographics + + + | Address | [address] | | | [place] [address] | + + + | Home Phone [...] Team Providers + +------+ + | Care Substation Inspector Name | Role | Phone | [...] + + | 12/20/ | Telephone | [facility] | Kevin Sandoval, | Leora (Sleep study) | | 2013 | | PULMONARY [address] | MD [address] | | | | | [place], | [place] | | | | | [place] [address] | [address] | | | | | [phone] | | | +--------+ + + + [...] 2:13 PM PDTCelia patel to ask Dr. Way herself. I am not sure why he [...] | | | | | | [place] [address] | | | | | | [phone] | | | | | | | [...]
--- OUTSIDE RECORDS SUMMARY | ~2019-09-27 | XMS | Encounter Summary ---
Demographics + + + | Address | [address] | | | [place] [address] | + + + | Home Phone [...] Team Providers + +------+ + | Care Nylon Operator Name | Role | Phone | [...] | | | | [facility] | [address] | [address] | | | | | EXERCISE | [place], | [place] | | | | | | [place] [address] | [place], [place] | | | | | | Phone: | [address] | | | | | | [phone] | Phone: | | | | | | Fax: | [phone] | | | | | | [phone] | Fax: | | | | | | | [phone] | +--------+--------+ + + + + Encounter Details +--------+---------+ + + + | Date | Type | Department | Care Team | Description | +--------+---------+ + + + | 08/01/ | Office | [facility] | Jared Mcdonough, | Chronic obstructive | | 2017 | Visit | [facility] CARD[facility]AC | MD Migdalia King | pulmonary disease, | | | | REHABILITATION [address] [place], | unspecified COPD | | | | [address] [place] | [place] [address] | type (HCC) (Primary | | | | [place] [address] | [phone] | Dx); Mild persistent | | | | [phone] | | asthma without | | | [...] [place] | | | | | | [id number] | | | | | | | | +--------+---------+ + + + | 11/24/ | Office | Cardiology | [place], | | | 2019 | Visit | | SINDHU Erickson [address] | | | | | | [place] | | | | | | [place] [address] | | | | | | [phone] | | | | | | | | +--------+---------+ + + + | 03/01/ | Office | Pulmonology | Mukul Clark MD | | | 2020 | Visit | | [address] | | | | | | [place] [facility] [place] | | | | | | [address] | | | | | | | | +--------+---------+ + + + documented as of this encounter Visit Diagnoses + + | Diagnosis | + + | Chronic obstructive pulmonary disease, unspecified COPD type (HCC) - Primary | + + | Mild persistent asthma without complication Unspecified asthma | + + documented in this encounter"
--- OUTSIDE RECORDS SUMMARY | ~2019-09-27 | XMS | Encounter Summary ---
Demographics + + + | Address | [address] | | | [place] [address] | + + + | Home Phone [...] + +------+ + | Care Pest Control Pilot Name | Role | Phone | [...] | | | | [facility] | [address] [place] [address] | [address] | | | | | EXERCISE | [place], | [place] | | | | | | [place] [address] | [place], [place] | | | | | | Phone: | [address] | | | | | | [phone] | Phone: | | | | | | Fax: | [phone] | | | | | | [phone] | Fax: | | | | | | | [phone] | +--------+--------+ + + + + Encounter Details +--------+---------+ + + + | Date | Type | Department | Care Team | Description | +--------+---------+ + + + | 06/13/ | Office | [facility] | Sharonda Delmycaitie, | Chronic obstructive | | 2017 | Visit | MED CTR CARDIAC | MD [address] [place] | pulmonary disease, | | | | REHABILITATION [address] [place], | unspecified COPD | | | | [place] | [place] [address] | type (HCC) (Primary | | | | [place] [address] | [phone] | Dx) | | | | [phone] | | | +--------+---------+ + + + [...] Patient states she wears a bipap at [employer] [facility] [employer]. Patient states that she had a [...] [place] | | | | | | [address] | | | | | | | | +--------+---------+ + + + | 11/24/ | Office | Cardiology | [place], | | | 2019 | Visit | | SINDHU Erickson [address] | | | | | | [place], | | | | | | [place] [address] | | | | | | [phone] | | | | | | | | +--------+---------+ + + + | 03/01/ | Office | Pulmonology | Mukul Clark MD | | | 2020 | Visit | | [address] | | | | | | [place] | | | | | | [address] | | | | | | | | +--------+---------+ + + + documented as of this encounter Visit Diagnoses + + | Diagnosis | + + | Chronic obstructive pulmonary disease, unspecified COPD type (HCC) - Primary | + + documented in this encounter"
--- OUTSIDE RECORDS SUMMARY | ~2019-09-27 | XMS | Encounter Summary ---
Demographics + + + | Address | [address] | | | [place] [address] | + + + | Home Phone [...] Team Providers + +------+ + | Care Printer Operator Name | Role | Phone | [...] | | | | OP [address] | [place], [place] | | | | | [place], [place] | [address] | | | | | [address] | | | | | | [phone] | | | +--------+ + + + [...] encounter Progress Notes Lakeshia Barkley, PT - 06/11/2016 10:[address] [facility] [address] [place] [address] Cancellation/No Show Date: 06/11/2016 Patient Information Patient [...] | | | | | | [place] [address] | | | | | | [phone] | | | | | | | [...]
--- OUTSIDE RECORDS SUMMARY | ~2019-09-27 | XMS | Encounter Summary ---
Demographics + + + | Address | [address] | | | [place] [address] | + + + | Home Phone [...] Providers + +------+ + | Care Restaurant Assistant Name | Role | Phone | [...] [address] | | | | | [place], | [place], | | | | | [place] [address] | [place] [address] | | | | | [phone] | [phone] | | | | | | | [...] | | | | | | [place] [address] | | | | | | [phone] | | | | | | | | +--------+---------+ + + + | 03/01/ | Office | Pulmonology | Mukul Clark MD | | | 2020 | Visit | | [address] | | | | | | [place] | | | | | | [address] | | | | | | | | +--------+---------+ + + + documented as of this encounter Visit Diagnoses Not on filedocumented in this encounter"
--- OUTSIDE RECORDS SUMMARY | ~2019-09-27 | XMS | Encounter Summary ---
Demographics + + + | Address | [address] | | | [place] [address] | + + + | Home Phone [...] Providers + +------+ + | Care Supervisor Metal Cans Name | Role | Phone | + [...] + + | 12/23/ | Office | [facility] | [place], | Palpitations; | | 2019 | Visit | CARDIOLOGY [address] | SINDHU Erickson [address] | Paroxysmal atrial | | | | [place], | [place], | tachycardia (HCC); | | | | [place] [address] | [place] [address] | Pericarditis, | | | | [phone] | [phone] | unspecified | | | | | [...] Need 99 months. Please send order to [facility]. 1 each 0 Respiratory Therapy [...] RESULTS reviewed during visit today primarily from [facility]: LIPID Lab Results Component Value [...] the HPI RESULTS- I reviewed reports from [facility]: Above data and testing is reviewed [...] v entricular function done at the [facility]. LVEF 78%. C. Holter Monitor 08/16/13 [...] She is in class I of the [place] [employer] sociation functional class. 2. Hypotensionsecondary [...] was seen at the ED of [facility] 3 weeks ago and again 1 [...] done prior by another provider. Lizy Vásquez Fleecer am acting as a scribe on behalf of, and in the presenc e of SINDHU Vang. - Lizy Nieto Fleecer 12/23/2018 14:27 Georgina Vásquez ARNP, personally performed the services described in this documentati on, as scribed in my presence and it is both accurate and complete. -SINDHU Vang 12/23/2018 Portions of this chart may have been created with [employer] voice recognition software. Occasi onal wrong-word or [...] | | | | | | [place] [address] | | | | | | [phone] | | | | | | | | +--------+---------+ + + + | 03/01/ | Office | Pulmonology | Mukul Clark MD | | | 2020 | Visit | | [address] | | | | | | [place] | | | | | | [address] | | | | | | | [...] MD | | | | | | ([id number]) on 12/23/2018 | | | | | [...]
--- OUTSIDE RECORDS SUMMARY | ~2019-09-27 | XMS | Encounter Summary ---
Demographics + + + | Address | [address] | | | [place] [address] | + + + | Home Phone [...] Team Providers + +------+ + | Care Gmat Instructor Name | Role | Phone | [...] | (Primary Dx) | | | | [place], | [address] | | | | | [place] [address] | | | | | | [phone] | | | +--------+ + + + [...] | | | | | | [place] [address] | | | | | | [phone] | | | | | | | | +--------+---------+ + + + | 03/01/ | Office | Pulmonology | Mukul Clark MD | | | 2020 | Visit | | [address] | | | | | | [place] | | | | | | [address] | | | | | | | [...]
--- OUTSIDE RECORDS SUMMARY | ~2019-09-27 | XMS | Encounter Summary ---
Demographics + + + | Address | [address] | | | [place] [address] | + + + | Home Phone [...] Team Providers + +------+ + | Care Ultrasonic Welding Machine Operator Name | Role | Phone [...] + + | 10/03/ | Office | [facility] | Andriy Weber | Cystitis (Primary | | 2016 | Visit | [address] | MD [address] | Dx) | | | | [place] | [place] | | | | | [address] | [place] [address] | | | | | [phone] | [phone] | | | | | | | [...] 50 y.o. female patient of Juan Cherry, being seen today for Follow-up Urinary urgency [...] She has a way to go to [place] to have her hiatal hernia repaired, and is unable to stay t [place] to have a DMSO instillation of her bladder. She has tentatively agreed to have this do ne once she has been to [facility]. 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 She takes this da [facility] Respiratory Therapy Supplies [facility] Please provide patient with necessary CPAP supplies ( she did not specify, okay to send order as appropriate) Diagnosis Code(s)327.23 . Length of Need 99 months. Please send order to [facility]. 1 each 0 Respiratory Therapy Supplies [facility] [...] Wt 79.379 kg (175 lb) | B MA 32.00 kg/m2 General: Awake, alert, in no [...] since s he had an appointment at [facility]. Rosario is instructed to resume her usual and customary care with her primary care provide r. This document was generated in part using voice recognition software. Although I have atte mpted to edit the content, I have not thoroughly proofread this note, and golf instructor erro rs may occur. documented in [...] [place] | | | | | | [address] | | | | | | | | +--------+---------+ + + + | 11/24/ | Office | Cardiology | [place], | | | 2019 | Visit | | SINDHU Erickson [address] | | | | | | [place], | | | | | | [place] [address] | | | | | | [phone] | | | | | | | | +--------+---------+ + + + | 03/01/ | Office | Pulmonology | Mukul Clark MD | | | 2020 | Visit | | [address] | | | | | | [place] | | | | | | [address] | | | | | | | [...] | | Epithelial | | | [facility] | | | Cells, | | | [...] ST. | [address] | [place], [place] | [phone] | | [facility] | | [address] | | | - LABORATORY | | [...] 1.001 - 1.030 | | | | [place], | | | | | | [facility], [...]
--- OUTSIDE RECORDS SUMMARY | ~2019-09-27 | XMS | Encounter Summary ---
Demographics + + + | Address | [address] | | | [place] [address] | + + + | Home Phone [...] Providers + +------+ + | Care General Engineering Teacher Name | Role | Phone | + +------+ + | Ozzy Delcid MD | PCP | | + +------+ + Encounter Details +--------+ + + + + | Date | Type | Department | Care Team | Description | +--------+ + + + + | 10/08/ | Hospital | [facility] | [place], | | | 2011 | Encounter | MED CTR LABORATORY | Loreta Alonso MD | | | | | [address] [place] | | | | | | [place] | | | | | | [address] | | | | | | [phone] | | | +--------+ + + + [...] | | | | | | [place] [address] | | | | | | [phone] | | | | | | | | +--------+---------+ + + + | 03/01/ | Office | Pulmonology | Mukul Clark MD | | | 2020 | Visit | | [address] | | | | | | [place] | | | | | | [address] | | | | | | | [...] | [facility] | | | | [place] [facility] | | MEDICAL | | | [...] | + + + + + | [facility] | [address] | [place], [place] | [phone] | | [facility] | | [address] | | | - LABORATORY | | | | + + + + + | [facility] | [address] | [place], [place] | | | [facility] | | [id number] [place] [address] | | | - LABORATORY | | | | + + + + + documented in this encounter Visit Diagnoses Not on filedocumented in this encounter"
--- OUTSIDE RECORDS SUMMARY | ~2019-09-27 | XMS | Encounter Summary ---
Demographics + + + | Address | [address] | | | [place] [address] | + + + | Home Phone [...] + +------+ + | Care Telephone Order Supervisor Name | Role | Phone | [...] + + | 08/11/ | Telephone | [facility] | Kevin Sandoval, | Other (decision to | | 2013 | | PULMONARY [address] | MD [address] | quit job) | | | | [place], | [place] | | | | | [place] [address] | [address] | | | | | [phone] | | | +--------+ + + + [...] from work. I advised her to call [employer] and see if they have a machine [...] to ask if Dr Sandoval agrees with [facility] decision to quit her job. 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 [...] [place] | | | | | | [address] | | | | | | | | +--------+---------+ + + + | 11/24/ | Office | Cardiology | [place], | | | 2019 | Visit | | SINDHU Erickson [address] | | | | | | [place] | | | | | | [place] [address] | | | | | | [phone] | | | | | | | | +--------+---------+ + + + | 03/01/ | Office | Pulmonology | Mukul Clark MD | | | 2020 | Visit | | [address] | | | | | | [place] | | | | | | [address] | | | | | | | | +--------+---------+ + + + documented as of this encounter Visit Diagnoses + + | Diagnosis | + + | Central sleep apnea Primary central sleep apnea | + + documented in this encounter
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
--- OUTSIDE RECORDS SUMMARY | ~2019-09-27 | XMS | Encounter Summary ---
Demographics + + + | Address | [address] | | | [place] [address] | + + + | Home Phone [...] + +------+ + | Care Chief Librarian Branch Name | Role | Phone | + [...] + + | 08/09/ | Telephone | [facility] | Jared Mcdonough, | Other (Initial | | 2013 | | AUNDREA [address] | [address] | Intake) | | | | [place], | [place], | | | | | [place] [address] | [place] [address] | | | | | [phone] | [phone] | | | | | | | [...] this encounter Miscellaneous Notes Telephone Encounter - Jackie Prescott Master of Abigail Stewart - 08/09/2013 9:04 AM PDTLeft voicehi il [...] [place] | | | | | | 403112 | | | | | | | | +--------+---------+ + + + | 11/24/ | Office | Cardiology | [place], | | | 2019 | Visit | | SINDHU Erickson [address] | | | | | | [place], | | | | | | [place] [address] | | | | | | [phone] | | | | | | | [...]
--- OUTSIDE RECORDS SUMMARY | ~2019-09-27 | XMS | Encounter Summary ---
Demographics + + + | Address | [address] | | | [place] [address] | + + + | Home Phone [...] Team Providers + +------+ + | Care Dish Maker Name | Role | Phone | [...] | with brief | [address] | [place] | | | | n | loss of | [address] | [place], | | | | | consciousnes | [place], | [place] [address] | | | | | s | [place] [address] | Phone: | | | | | Post-concuss | Phone: | [phone] | | | | | ion vertigo | [phone] | Fax: | | | | | [phone] | Fax: | [phone] | | | | | (ICD-10-CM) | [phone] | | | | | | - [...] + + | 06/05/ | Office | [facility] | Aaron Rodriguez, | Dizziness (Primary | | 2017 | Visit | MED CTR THERAPY PT | MD [address] | Dx); Impaired | | | | OP [address] | [place] | mobility and | | | | [place] | [id number] | activities of daily | | | | [address] | | living; Concussion | | | | [phone] | Lakeshia Cleary, PT | with brief (less | | | | | [address] | than one hour) loss | | | | | [place] | of consciousness; | | | | | [address] | Intractable acute | | | | [...] from t he original. [facility] CTR THERAPY PT OP [address] [place] [address] Physical Therapy Daily Treatment Note Date: 06/05/2016 [...] Precautions Office Visit from 05/01/[address] [facility] CTR THERAPY PT OP Rehab Precautions [...] [place] | | | | | | [place] [address] | | | | | | [phone] | | | | | | | | +--------+---------+ + + + | 03/01/ | Office | Pulmonology | Mukul Clark MD | | | 2020 | Visit | | [address] | | | | | | [place] | | | | | | [address] | | | | | | | [...]
--- OUTSIDE RECORDS SUMMARY | ~2019-09-27 | XMS | Encounter Summary ---
Demographics + + + | Address | [address] | | | [place] [address] | + + + | Home Phone [...] Providers + +------+ + | Care Melt House Centrifugal Operator Name | Role | Phone | [...] + + | 05/30/ | Office | [facility] | Guru Henao | Acute pain of right | | 2018 | Visit | CARE [address] | MD Aleyda [address] | wrist (Primary Dx); | | | | [place] | [place] | Osteoarthritis of | | | | [address] | [address] | first | | | | [phone] | | carpometacarpal | | | | [...] thumb and fingers, unscrew a jar lid, tumbling and rolling supervisor an object, or turn a door handle or a mccallum. You may find yourself dropping things. Weather may also make the thumb sage t. The joint may swell. With time the thumb may become stiff or deformed. Date Last Reviewed: 06/24/201619999168-1856 [employer] [place] [address]. All [facility] ts reserved. This information is not intended as a substitute for professional medical care. Always follow your healthcare professional's instructions. documented in this encounter Progress Notes Jayce Ya, Victims Advocate Clerk/Specialist - 05/30/2017 8:15 AM PDTVerified name and [...] [place] | | | | | | [address] | | | | | | | | +--------+---------+ + + + | 11/24/ | Office | Cardiology | [place], | | | 2019 | Visit | | SINDHU Erickson [address] | | | | | | [place] | | | | | | [place] [address] | | | | | | [phone] | | | | | | | | +--------+---------+ + + + | 03/01/ | Office | Pulmonology | Mukul Clark MD | | | 2020 | Visit | | [address] | | | | | | [place] | | | | | | [address] | | | | | | | | +--------+---------+ + + + documented as of this encounter Visit Diagnoses + + | Diagnosis | + + | Acute pain of right wrist - Primary | + + | Osteoarthritis of first carpometacarpal (CMC) joint of one hand | + + documented in this encounter
--- OUTSIDE RECORDS SUMMARY | ~2019-09-27 | XMS | Encounter Summary ---
Demographics + + + | Address | [address] | | | [place] [address] | + + + | Home Phone [...] Team Providers + +------+ + | Care Venetian Blind Assembler Name | Role | Phone | [...] MED CTR CARDIAC | MD [address] | unspecified | | | | REHABILITATION [address] | [place], | emphysema type (HCC) | | | | [address] [place] | [place] [address] | (Primary Dx); | | | | [place] [address] | [phone] | Chronic obstructive | | | | [phone] | | pulmonary disease, | | | [...] | | | | | | [place] [address] | | | | | | [phone] | | | | | | | | +--------+---------+ + + + | 03/01/ | Office | Pulmonology | Mukul Clark MD | | | 2020 | Visit | | [address] | | | | | | [place] [facility] | | | | | | [address] | | | | | | | [...]
--- OUTSIDE RECORDS SUMMARY | ~2019-09-27 | XMS | Encounter Summary ---
Demographics + + + | Address | [address] | | | [place] [address] | + + + | Home Phone [...] Team Providers + +------+ + | Care Pack Room Operator Name | Role | Phone [...] (Primary Dx); | | | | [place] [address] | | Central sleep apnea; | | | | [phone] | | Insomnia | +--------+---------+ + + [...] | | | | | | [place] [address] | | | | | | [phone] | | | | | | | | +--------+---------+ + + + | 03/01/ | Office | Pulmonology | Mukul Clark MD | | | 2020 | Visit | | [address] | | | | | | [place] | | | | | | [address] | | | | | | | [...]
--- OUTSIDE RECORDS SUMMARY | ~2019-09-27 | XMS | Encounter Summary ---
Demographics + + + | Address | [address] | | | [place] [address] | + + + | Home Phone [...] Team Providers + +------+ + | Care Sorter Pricer Name | Role | Phone | + [...] | | | [facility] | [address] | [address] | | | | | EXERCISE | [place], | [place] | | | | | | [place] [address] | [place], [place] | | | | | | Phone: | [address] | | | | | | [phone] | Phone: | | | | | | Fax: | [phone] | | | | | | [phone] | Fax: | | | | | | | [phone] | +--------+--------+ + + + + Encounter Details +--------+---------+ + + + | Date | Type | Department | Care Team | Description | +--------+---------+ + + + | 07/04/ | Office | [facility] | Jared Mcdonough, | Chronic obstructive | | 2017 | Visit | MED CTR CARDIAC | MD Migdalia King | pulmonary disease, | | | | REHABILITATION [address] | [address] [place], | unspecified COPD | | | | [address] [place] | [place] [address] | type (HCC) (Primary | | | | [place] [address] | [phone] | Dx); Mild persistent | | | | [phone] | | asthma without | | | [...] this encounter Progress Notes Aries, Luke - 07/04/2016 11:46 AM PDTPatient tolerated exercise [...] | | | | | | [place] [address] | | | | | | [phone] | | | | | | | | +--------+---------+ + + + | 03/01/ | Office | Pulmonology | Mukul Clark MD | | | 2020 | Visit | | [address] | | | | | | [place] | | | | | | [address] | | | | | | | [...]
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
--- OUTSIDE RECORDS SUMMARY | ~2019-09-27 | XMS | Encounter Summary ---
Demographics + + + | Address | [address] | | | [place] [address] | + + + | Home Phone [...] + + | 03/22/ | [facility] | [facility] [place] | [place], | COPD exacerbation | | 2013 | Visit | PULMONARY [address] | Loreta Alonso MD | ([facility]) (Primary Dx); | | | | [place], | | Complex sleep apnea | | | | [place] [address] | | syndrome | | | | [phone] | | | +--------+---------+ + + + [...] Pulmonary Follow Up Note Loreta London MD [facility] [address] [place], [address] [facility] Rosario Malik is a 48 [...] cysts, not cancer Colonoscopy 03/2010 Colonoscopy 1995 [facility] Social History: History Social History Marital Status: Single Spouse Name: N/A Number of Children: 1 Years of Education: 13 Occupational History [employer] Social History Main Topics Smoking status: [...] made to ensure accuracy; however, inadvertent computerized hot dip galvanizer errors may be pre sent. documented in [...] [place] | | | | | | [address] | | | | | | | | +--------+---------+ + + + | 11/24/ | Office | Cardiology | [place], | | | 2019 | Visit | | SINDHU Erickson [address] | | | | | | [place], | | | | | | [place] [address] | | | | | | [phone] | | | | | | | | +--------+---------+ + + + | 03/01/ | Office | Pulmonology | Mukul Clark MD | | | 2020 | Visit | | [address] | | | | | | [place] | | | | | | [address] | | | | | | | | +--------+---------+ + + + documented as of this encounter Visit Diagnoses + + | Diagnosis | + + | COPD exacerbation (HCC) - Primary Obstructive chronic bronchitis with exacerbation | + + | Complex sleep apnea syndrome Unspecified sleep apnea | + + documented in this encounter
--- OUTSIDE RECORDS SUMMARY | ~2019-09-27 | XMS | Encounter Summary ---
Demographics + + + | Address | [address] | | | [place] [address] | + + + | Home Phone [...] Providers + +------+ + | Care Lye Treater Name | Role | Phone | + [...] + | 07/25/ | Documentati | [facility] | Kathi Soto, | No Show | | 2017 | on | MED CTR SPEECH | Speech Pathologist | | | | | THERAPY [address] | | | | | | [place], | | | | | | [place] [address] | | | | | | [phone] | | | +--------+ + + + [...] Progress Notes Kathi Soto Speech Pathologist - 07/25/2016 1:58 PM [facility] [address] [place] [address] Cancellation/No Show Date: 07/25/2016 Patient Information Patient [...] | | | | | | [place] [address] | | | | | | [phone] | | | | | | | [...]
--- OUTSIDE RECORDS SUMMARY | ~2019-09-27 | XMS | Encounter Summary ---
Demographics + + + | Address | [address] | | | [place] [address] | + + + | Home Phone [...] Providers + +------+ + | Care Teacher Citizenship Name | Role | Phone | + [...] Alonso MD | | | | | [place], | | | | | | [place] [address] | | | | | | [phone] | | | +--------+--------+ + + + [...] [place] | | | | | | [id number] | | | | | | | | +--------+---------+ + + + | 11/24/ | Office | Cardiology | [place], | | | 2019 | Visit | | SINDHU Erickson [address] | | | | | | [place] | | | | | | [place] [address] | | | | | | [phone] | | | | | | | | +--------+---------+ + + + | 03/01/ | Office | Pulmonology | Mukul Clark MD | | | 2020 | Visit | | [address] | | | | | | [place] | | | | | | [address] | | | | | | | | +--------+---------+ + + + documented as of this encounter Visit Diagnoses Not on filedocumented in this encounter"
--- OUTSIDE RECORDS SUMMARY | ~2019-09-27 | XMS | Encounter Summary ---
Demographics + + + | Address | [address] | | | [place] [address] | + + + | Home Phone [...] + +------+ + | Care Wildlife Refuge Specialist Name | Role | Phone | + +------+ + | Juan Cherry DO | PCP | | + +------+ + Encounter Details +--------+ + + + + | Date | Type | Department | Care Team | Description | +--------+ + + + + | 10/19/ | Hospital | [facility] | Kevin Sandoval, | COPD (chronic | | 2013 | Encounter | MED CTR PULMONARY | MD [address] | obstructive | | | | FUNCTION [address] | [place], [place] | pulmonary disease) | | | | [place], | [address] | (HCC) | | | | [place] [address] | | | | | | [phone] | | | +--------+ + + + [...] [place] | | | | | | [address] | | | | | | | | +--------+---------+ + + + | 11/24/ | Office | Cardiology | [place], | | | 2019 | Visit | | SINDHU Erickson [address] | | | | | | [place], | | | | | | [place] [address] | | | | | | [phone] | | | | | | | | +--------+---------+ + + + | 03/01/ | Office | Pulmonology | Mukul Clark MD | | | 2020 | Visit | | [address] | | | | | | [place] | | | | | | [address] | | | | | | | [...]
--- OUTSIDE RECORDS SUMMARY | ~2019-09-27 | XMS | Encounter Summary ---
Demographics + + + | Address | [address] | | | [place] [address] | + + + | Home Phone [...] Team Providers + +------+ + | Care Worm Sorter Name | Role | Phone | [...] | | | | | | [place] [address] | | | | | | [phone] | | | +--------+ + + + [...] [place] | | | | | | [address] | | | | | | | | +--------+---------+ + + + | 11/24/ | Office | Cardiology | [place], | | | 2019 | Visit | | SINDHU Erickson [address] | | | | | | [place], | | | | | | [place] [address] | | | | | | [phone] | | | | | | | | +--------+---------+ + + + | 03/01/ | Office | Pulmonology | Mukul Clark MD | | | 2020 | Visit | | [address] | | | | | | [place] | | | | | | [address] | | | | | | | [...]
--- OUTSIDE RECORDS SUMMARY | ~2019-09-27 | XMS | Encounter Summary ---
Demographics + + + | Address | [address] | | | [place] [address] | + + + | Home Phone [...] Team Providers + +------+ + | Care Perinatology Physician Name | Role | Phone | [...] + + | 04/13/ | Emergency | [facility] | Alverto Tyler, | Abdominal pain, | | 2015 | | MED CTR EMERGENCY | [address] [address] | acute, epigastric | | | | CENTER [address] | [place] | (Primary Dx) | | | | [place] | [place] [address] | | | | | [address] | [phone] | | | | | [phone] | | | | | | | Ozzy Louis | | | | | Frances Kim MD [address] | | | | | | [place] | | | | | | [address] | | | | | | [phone] | | | | | | | | | | | | Nestor Martinez MD | | | | | | [address] | | | | | | [place] | | | | | | [id number] | | | | | | | [...] might be different fro m the original. 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 along with hypothyroidism Osteoarthritis Tachycardia Asthma Emphysema Migraine Migraines Past Surgical History Procedure Laterality Date Hammer toe surgery right sided Hiatal hernia repair Hiatal hernia Kirk and bso Ovarian cysts, not cancer Colonoscopy 03/2010 Colonoscopy 1995 [facility] Knee surgery right Wrist surgery right Hysterectomy Other surgical history 02/28/2014 [facility] with Radial approach; Laterality: Left; Surgeon: Jared Mcdonough MD; Location: [facility] CURRENT MEDICATIONS Previous [...] takes this da rigoberto RESPIRATORY THERAPY SUPPLIES [facility] Change CPAP back to 11-14 cm H2O. All necessary suppl ies. No oxygen bleed in. Diagnosis Code(s)327.23. Length of Need: Lifetime. Please send orde r to [facility]. This is not a new order, just a change in settings. RESPIRATORY THERAPY SUPPLIES [facility] Please provide patient with necessary CPAP supplies ( she did not specify, okay to send order as appropriate) Diagnosis Code(s)327.23 . Length of Need 99 months. Please send order to [facility]. RIZATRIPTAN (MAXALT) 10 MG TABLET Take [...] 1 Years of Education: 13 Occupational History [employer] Social History Main Topics Smoking status: [...] were reviewed along with EMS notes and [facility] record s if applicable. (See chart for [...] As planned Contact information: [address] [place] [id number] Discharge Instructions Avoid fatty foods, use Maalox as needed. 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 | [place] | [phone] | | [facility] | | [address] | | | - LABORATORY | | [...] | non- | FILTRATION | mL/min/1.73m2 | [facility] | | | Lithuanian | RATE,ESTIMATED | | MEDICAL | | | | mL/min/1.04q1Qyaf than | | CENTER - | | [...] | | | | | mg/dL | [facility] | | | | | [...] ST. | [address] | [place], [place] | [phone] | | [facility] | | [address] | | | - LABORATORY | | [...]
--- OUTSIDE RECORDS SUMMARY | ~2019-09-27 | XMS | Encounter Summary ---
Demographics + + + | Address | [address] | | | [place] [address] | + + + | Home Phone [...] Team Providers + +------+ + | Care Rags Laborer Name | Role | Phone | [...] + + | 08/03/ | Emergency | [facility] | Alverto Tyler, | Dehydration (Primary | | 2016 | | MED CTR EMERGENCY | [address] [address] | Dx); Acute | | | | CENTER [address] | [place] | hypokalemia; Urinary | | | | [place], [place] | [place] [address] | tract infection | | | | [address] | [phone] | without hematuria, | | | | [phone] | | site unspecified | +--------+ + [...] | | send order to [facility] | | | | | [...] might be different fro m the original. [facility] En[facility] Note [address] [place] [address] PCP:Juan Cherry DO [phone] CHIEF COMPLAINT: Chief Complaint Patient presents with Emesis ED Room: ED08/ED08 TRIAGE: ED Triage Notes Faina Ortiz RN 08/04/2015 10:54 Pt seen at [facility] for "slipped Nissin". Pt has [...] Ortiz RN 08/04/2015 10:52 Pt seen at [place] for "slipped Nissin". Pt has [...] of the week she had endoscopy in [place] as above PAST MEDICAL & SURGICAL HISTORY [...] [facility]) 10/28/2012 Overview: Managed by [facility] along with hypothyroidism Osteoarthritis Tachycardia Asthma Emphysema Migraine Migraines Past Surgical History Procedure Laterality Date Hammer toe surgery right sided Hiatal hernia repair Hiatal hernia Kirk and bso Ovarian cysts, not cancer Colonoscopy 03/2010 Colonoscopy 1995 [facility] Knee surgery right Wrist surgery right Hysterectomy Other surgical history 02/28/[address] [facility] with Radial approach; Laterality: Left; Surgeon: Jared Mcdonough MD; Location: [facility] Tonsillectomy Age 6 [...] takes this da rigoberto RESPIRATORY THERAPY SUPPLIES [facility] Change CPAP back to 11-14 cm H2O. All necessary suppl ies. No oxygen bleed in. Diagnosis Code(s)327.23. Length of Need: Lifetime. Please send orde r to [facility]. This is not a new order, just a change in settings. RESPIRATORY THERAPY SUPPLIES [facility] Please provide patient with necessary CPAP supplies ( she did not specify, okay to send order as appropriate) Diagnosis Code(s)327.23 . Length of Need 99 months. Please send order to [facility]. 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 (See chart for [...] Why: For re-check Contact information: [address] [facility] [address] New Prescriptions CEPHALEXIN (KEFLEX) 250 MG [...] this chart may have been created with [employer] voice recognition software. Occasi onal wrong-word or sound-alike substitutions may have occurred due to the inherent cárdenas itations of voice recognition software. Please read the chart carefully and recognize, using context, where these substitutions have occurred Alverto Tyler MD 08/04/15 1429 document ed in this encounter Miscellaneous Notes ED Triage Notes - Faina Ortiz RN - 08/04/2015 10:48 AM PDTPt seen at [place] for "slipped Nissin". Pt has [...] | | | | | | [place] [address] | | | | | | [phone] | | | | | | | | +--------+---------+ + + + | 03/01/ | Office | Pulmonology | Mukul Clark MD | | | 2020 | Visit | | [address] | | | | | | [place] | | | | | | [address] | | | | | | | [...] + | [facility] [facility] | [address] | [place], [place] | [phone] | | [facility] | | [address] | | | - LABORATORY | | [...] - 1.030 | [facility] | | | [place], | | | [facility] | | [...] [address] | [place] | [phone] | | [facility] | | [address] | | | - LABORATORY | | [...] 1.44 (H) | 0.60 - 1.30 | [facility] | | | | | mg/dL | [facility] | | | | | | MEDICAL | | | | | | CENTER - | | | | | | LABORATORY | | + + + + + + | eGFR, | 39 (L)Comment: | >=60 | [facility] | | | non- | GLOMERULAR FILTRATION | mL/min/1.73m2 | [facility] | | | [place] | RATE,ESTIMATED | | MEDICAL | | | | mL/min/1.70e3Aejg than | | CENTER - | | [...] [address] | [place] | [phone] | | [facility] | | [address] | | | - LABORATORY | | [...] | Eosinophils | | K/uL | [facility] | | | | [...] + | [facility] | [address] | [place] | [phone] | | [facility] | | [address] | | | - LABORATORY | | [...] | | | | | | [employer] | | | | | [...] + + | Performing | Address | City/State/[facility] | Phone Number | | Organization | | | | + + + + + | [facility] | [address] | [place] | [phone] | | [facility] | | [address] | | | - LABORATORY | | [...] | | | | RAFA WELLS MD ([id number]) | | | | | | on [...]
--- OUTSIDE RECORDS SUMMARY | ~2019-09-27 | XMS | Encounter Summary ---
Demographics + + + | Address | [address] | | | [place] [address] | + + + | Home Phone [...] Providers + +------+ + | Care Farm Machinery Erector Name | Role | Phone | + [...] + + | 08/14/ | Telephone | [facility] | [place], | Other (pulse rate) | | 2017 | | CARDIOLOGY [address] | SINDHU Erickson [address] | | | | | [place], | [place], | | | | | [place] [address] | [place] [address] | | | | | [phone] | [phone] | | | | | | | [...] | | | | | | [place] [address] | | | | | | [phone] | | | | | | | | +--------+---------+ + + + | 03/01/ | Office | Pulmonology | Mukul Clark MD | | | 2020 | Visit | | [address] | | | | | | [place] | | | | | | [address] | | | | | | | | +--------+---------+ + + + documented as of this encounter Visit Diagnoses Not on filedocumented in this encounter"
--- OUTSIDE RECORDS SUMMARY | ~2019-09-27 | XMS | Encounter Summary ---
Demographics + + + | Address | [address] | | | [place] [address] | + + + | Home Phone [...] + +------+ + | Care Real Estate Consultant Name | Role | Phone | + +------+ + | Juan Cherry DO | PCP | | + +------+ + Encounter Details +--------+ + + + + | Date | Type | Department | Care Team | Description | +--------+ + + + + | 01/20/ | Hospital | [facility] | Guru Cárdenas, | | | 2011 | Encounter | MED CTR EMERGENCY | [address] | | | | | CENTER [address] | [facility] [place] | | | | | [place], [place] | [place] [address] | | | | | [address] | [phone] | | | | | [phone] | | | | | | | Ozzy Aponte | | | | | | MD Delio [address] | | | | | | [address] [place] | | | | | | [place] [address] | | | | | | [phone] | | | | | | | [...] Ozzy Aponte MD - 01/21/2012 8:08 [place] [address] Patient Name: JADYN SCHMITZ Provider: Unit #: [id number] Location: [facility] : 1965 DATE: 01/21/2012 HISTORY OF PRESENT [...] Ozzy Aponte MD Emergency Medicine JOB #: [id number] EXT JOB #:[id number] <<Signature on File>> Ozzy Aponte MD01/21/12 1042 [...] | | | | | | [place] [address] | | | | | | [phone] | | | | | | | | +--------+---------+ + + + | 03/01/ | Office | Pulmonology | Mukul Clark MD | | | 2020 | Visit | | [address] | | | | | | [place] | | | | | | [address] | | | | | | | [...] + + | [facility] | [place] | | Department [address] [facility] [place] | [facility] | | [ rep ct [address]] [ rep [facility] | | st zip] Signed | - IMAGING | | | | | Patient Name: JADYN SCHMITZ | | | Physician: MARY : 1965 Age: 47 Sex: F Unit | | | #: [id number] Exam Date: 01/21/12 Location: | | | [facility] Report #: [id number] Page: | | | %(RAD)RES..mtdd.print.filter("pg") of %(RAD) | | | RES..mtdd.print.filter("tpg") | | | | | | Accession Number: [id number] | | | RIGHT FOOT CLINICAL HISTORY: [...] Transcribed Date/Time: 01/21/2012 09:32 | | | Designated Broker: <<Signature on File>> | | | | | | Cesar Ren MD01/21/12 1402 <Electronically signed by | | | Cesar Ren MD> Cesar Ren MD 01/21/12 | | | 0994 Designated Broker: Neal Hlfjwvkvidguv43/27/12 0932 | | | | | + + + + + + + + | Performing | Address | City/State/[facility] | Phone Number | | Organization | | | | + + + + + | [facility] | [address] | [place] | [phone] | | [facility] | | [address] | | | - IMAGING | | | | + + + + + documented in this encounter Visit Diagnoses Not on filedocumented in this encounter
--- OUTSIDE RECORDS SUMMARY | ~2019-09-27 | XMS | Encounter Summary ---
Demographics + + + | Address | [address] | | | [place] [address] | + + + | Home Phone [...] Providers + +------+ + | Care Cafeteria Supervisor Name | Role | Phone | [...] | | | | CENTER [address] | [facility] [place] | | | | | [place], [place] | [place] [address] | | | | | [address] | [phone] | | | | | [phone] | | | +--------+ + + + [...] encounter ED Notes Guru Cárdenas MD - 03/22/2013 3:24 [place] [address] Patient Name: JADYN SCHMITZ Provider: Unit #: [id number] Location: ER : 1965 DATE: 03/22/2013 IDENTIFICATION: A 48-year-old female. CHIEF COMPLAINT: Difficulty breathing. HISTORY OF PRESENT ILLNESS: This patient has had a COPD attack, she calls it, for the last 2 to 3 days. She has been using frequent breathing treatments, but despite that she contin ues to be worse and presented to the ER. She says coughing up some different colors of stuf f today; some green, some yellow , some clear. No fevers in particular. She presents to the ER for evaluation at this time. PAST MEDICAL HISTORY: Fibromyalgia, osteoarthritis, COPD/asthma, hypothyroidism, and menta l health disorder. The specifics are not clear on the chart. MEDICATIONS 1. Albuterol inhaler. 2. Albuterol nebulizer. 3. Tylenol. 4. Cholecalciferol. 5. Cymbalta. 6. Advair. 7. Gabapentin. 8. DuoNeb nebulizer. 9. Levothyroxine. 10. Multivitamin. 11. Omeprazole. 12. Prednisone in the past, not on now. 13. Maxalt. 14. Spiriva. 15. Tramadol. 16. Geodon. ALLERGIES 1. ERYTHROMYCIN. 2. NSAIDs. 3. TETRACYCLINE. 4. MEPERIDINE. 5. ONIONS. SOCIAL HISTORY: She is providing her own history at this time. She was a smoker in the [facility]. She has subsequently quit. Dr. Cherry is her primary. Dr. London is her pulmonolo gist. REVIEW OF SYSTEMS GENERAL: No reported fever. HEAD: No complaint. EYES: No complaint. EARS: No complaint. THROAT: No sore throat. HEART: No chest pain. RESPIRATORY: Lots of coughing, some productive. Lots of wheezing, difficulty breathing. GASTROINTESTINAL: No abdominal pain, vomiting, or diarrhea. GENITOURINARY: No complaint. MUSCULOSKELETAL: No complaint. DERMATOLOGY: No skin lesions. NEUROLOGIC: No seizure or stroke-like symptoms. PHYSICAL EXAMINATION VITAL SIGNS: Blood pressure 113/76, pulse 130, respirations 24, temperature 96.6, saturati on 90% on room air, 94% on 2 liters. GENERAL: This is a well-nourished 48-year-old female sitting upright on the gurney. HEENT: No obvious trauma. Pupils equal, conjunctivae are pink. Mucous membranes dry. Nose and throat are clear. NECK: Supple. No adenopathy. HEART: Tachycardic. LUNGS: Have poor air exchange bilaterally. Mild expiratory wheezing. ABDOMEN: Soft, nontender, nondistended. EXTREMITIES: Warm and well perfused without edema. Good range of motion. No joint swelling or deformity. SKIN: No rash. NEUROLOGIC: She is alert, answers questions appropriately and her speech is clear. EMERGENCY DEPARTMENT COURSE: The patient was seen and examined shortly after [facility]. History and physical obtained. Vital signs were noted. An IV was e stablished. He was given Solu-Medrol 60 mg IV. We did a DuoNeb and then an hour continuous albuterol. A CBC, basic metabolic profile, and portable chest x-ray obtained. [facility] shows hyperexpansion but no infiltrates, no pneumothorax. CBC: White count is 11.3, hemoglobin 13.4, hematocrit 39.2, platelets of 278. Basic metabolic panel is normal, with the exception of a mildly low potassium at 3.3. We observed here in the emergency [facility] for 2 hours. She states at this point that she feels much better. I talked with her about admission to the hospital versus discharge. She would like to go ahead and go home. She th inks she is good enough to go home and she has an appointment at 9 o'clock in the morning w ith her deputy chief counsel. I am going to put her on prednisone taper with instructions to return immediately if she worsens. IMPRESSION: ACUTE ASTHMA/CHRONIC OBSTRUCTIVE PULMONARY DISEASE EXACERBATION. PLAN: The patient will be discharged in improved condition. Prednisone daily. Continue neb treatments. Followup with Dr. London in the morning as planned. Return immediately if she worsens or other concerns develop. DICTATED BY: Guru Cárdenas MD Emergency Medicine JOB #: [id number] EXT JOB #:[id number] <<Signature on File>> Guur Cárdenas MD 6319 < documented in thi s encounter Plan of [...] [place] | | | | | | [address] | | | | | | | | +--------+---------+ + + + | 11/24/ | Office | Cardiology | [place], | | | 2019 | Visit | | SINDHU Erickson [address] | | | | | | [place], | | | | | | [place] [address] | | | | | | [phone] | | | | | | | | +--------+---------+ + + + | 03/01/ | Office | Pulmonology | Mukul Clark MD | | | 2020 | Visit | | [address] | | | | | | [place] | | | | | | [address] | | | | | | | [...] [facility] | [place] | | Department [address] [facility] | [facility] | | [ rep ct street[address]] [ rep ct [facility] | | st zip] Signed | - IMAGING | | | | | Patient Name: JADYN SCHMITZ | | | Physician: SANG : 1965 Age: 48 Sex: F Unit | | | #: [id number] Exam Date: 03/22/13 Location: | | | ER Report #: [id number] Page: | | | %(RAD)RES..mtdd.print.filter("pg") of %(RAD) | | | RES..mtdd.print.filter("tpg") | | | | | | Accession Number: [id number] | | | PORTABLE CHEST CLINICAL HISTORY: [...] Transcribed Date/Time: 03/22/2013 08:50 | | | Joinery Patternmaker: <<Signature on File>> | | | | | | Cesar Ren MD03/22/13 1800 <Electronically signed by | | | Cesar Ren MD> Cesar Ren MD 03/22/13 | | | 0811 Joinery Patternmaker: Neal Pzsumwdfhgpvn39/27/14 0850 | | | | | + + + + + + + + | Performing | Address | City/State/Zipcode | Phone Number | | Organization | | | | + + + + + | [facility] | [address] | [place] | [phone] | | [facility] | | [address] | | | - IMAGING | | [...] | | DIFFER[place] | | | [facility] | | | L ? | [...] + + + | Red Blood | 4.51 | 3.70 - 5.20 | [...] 0.1 | 0.0 - 0.1 K/uL | [facility] | | | Basophils | | | [...] [address] | [place] | [phone] | | [facility] | | [address] | | | - LABORATORY | | | | + + + + + | [facility] | [address] | [place] | | | [facility] | | [address], [facility] | | | - LABORATORY [...] ST. | [address] | [place] | [phone] | | [facility] | | [address] | | | - LABORATORY | | | | + + + + + | [facility] | [address] | [place] | | | [facility] | | [address] [place] [address] | | | - LABORATORY | | | | + + + + + documented in this encounter Visit Diagnoses Not on filedocumented in this encounter
--- OUTSIDE RECORDS SUMMARY | ~2019-09-27 | XMS | Encounter Summary ---
Demographics + + + | Address | [address] | | | [place] [address] | + + + | Home Phone [...] Providers + +------+ + | Care Patient Services Coordinator Name | Role | Phone [...] + | 05/31/ | Telephone | [facility] | Kade Hoffman MD | Follow-up ( appt | | 2013 | | CARE [address] | [address] | for COPD | | | | [place] | [place] [address] | exacerbation ) | | | | [address] | [phone] | | | | | [phone] | | | +--------+ + + + [...] this encounter Miscellaneous Notes Telephone Encounter - Su Horowitz RN - 05/31/2013 3:44 PM PDTPatient contacted as follow up for appt for COPD. 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 Reports she is feeling better. States she has no questions o r concerns for staff or provider at this time. No further action needed at this time. documented in this encounter Plan of Treatment [...] [place] | | | | | | [address] | | | | | | | | +--------+---------+ + + + | 11/24/ | Office | Cardiology | [place], | | | 2019 | Visit | | SINDHU Erickson [address] | | | | | | [place], | | | | | | [place] [address] | | | | | | [phone] | | | | | | | | +--------+---------+ + + + | 03/01/ | Office | Pulmonology | Mukul Clark MD | | | 2020 | Visit | | [address] | | | | | | [place] | | | | | | [address] | | | | | | | | +--------+---------+ + + + documented as of this encounter Visit Diagnoses Not on filedocumented in this encounter"
--- OUTSIDE RECORDS SUMMARY | ~2019-09-27 | XMS | Encounter Summary ---
Demographics + + + | Address | [address] | | | [place] [address] | + + + | Home Phone [...] Providers + +------+ + | Care Fur Designer Name | Role | Phone | [...] | Off-Site | [facility] [place] | [place], | Tachycardia (Primary | | 2013 | Visit | CARDIOLOGY [address] | SINDHU Erickson [address] | Dx); Palpitations; | | | | [place], | [place], | Tachyarrhythmia; | | | | [place] [address] | [place] [address] | Other chest pain | | | | [phone] | [phone] | | | | | | | [...] she was schedule for an echocardiogram to [facility] for pericarditis and she was prescribed colchicine. Patient did not pick up driver prescription and has not started it. Since [...] HGBEX 14.5 05/10/2013 I reviewed records from [facility] for emergency department visit o n 01/20/2014 [...] seen at the ED of [facility] 3 weeks ago and again 1 [...] She is in a class II of [employer] functional class. There is no [...] this chart may have been created with [employer] voice recognition software. Occasi onal wrong-word or sound-alike substitutions may have occurred due to the inherent cárdenas itations of voice recognition software. Please read the chart carefully and recognize, using context, where these substitutions have occurred. documented in th is encounter Procedure Notes Ashlee Alliosn ARNP - 01/27/2014 10:20 AM PSTAssociated Order(s): [...] Order(s): ECG - EXTERNAL SCANElectronically signed by Roladno Pozo at 014 8:44 AM PSTdocumented in [...] | | | | | | [place] [address] | | | | | | [phone] | | | | | | | | +--------+---------+ + + + | 03/01/ | Office | Pulmonology | Mukul Clark MD | | | 2020 | Visit | | [address] | | | | | | [place] | | | | | | [address] | | | | | | | [...] 1965 Medical Record Number: | | | [id number] Date: 01/27/2014 Time: 10:20 EKG Interpretation | [...] Procedure Note | + + | Ashlee lAlison ARNP - 01/27/2014 10:20 AM PST Patient [...]
--- OUTSIDE RECORDS SUMMARY | ~2019-09-27 | XMS | Encounter Summary ---
Demographics + + + | Address | [address] | | | [place] [address] | + + + | Home Phone [...] Team Providers + +------+ + | Care Sub Plant Manager Name | Role | Phone | [...] + + | 08/22/ | Office | [facility] | Andriy Weber | Cystitis (Primary | | 2016 | Visit | [address] | MD [address] | Dx) | | | | [place] | [place] | | | | | [address] | [place] [address] | | | | | [phone] | [phone] | | | | | | | [...] cc. She is currently being evaluated in [place] for a hiatal hernia repair. Past Medical [...] this da rigoberto Respiratory Therapy Supplies [facility] Please provide patient with necessary CPAP supplies ( she did not specify, okay to send order as appropriate) Diagnosis Code(s)327.23 . Length of Need 99 months. Please send order to [facility]. 1 each 0 Respiratory Therapy Supplies [facility] Change CPAP back to 11-14 cm H2O. All necessary suppl ies. No oxygen bleed in. Diagnosis Code(s)327.23. Length of Need: Lifetime. Please send orde r to [facility]. This is not a new [...] Wt 76.658 kg (169 lb) | B AR 30.90 kg/m2 General: Awake, alert, quite anxious. [...] have not thoroughly proofread this note, and cte teacher erro rs may occur. documented in th [...] [place] | | | | | | [address] | | | | | | | | +--------+---------+ + + + | 11/24/ | Office | Cardiology | [place], | | | 2019 | Visit | | SINDHU Erickson [address] | | | | | | [place], | | | | | | [place] [address] | | | | | | [phone] | | | | | | | | +--------+---------+ + + + | 03/01/ | Office | Pulmonology | Mukul Clark MD | | | 2020 | Visit | | [address] | | | | | | [place] | | | | | | [address] | | | | | | | [...] 1.001 - 1.030 | | | | [place], | | | | | | [facility], [...]
--- OUTSIDE RECORDS SUMMARY | ~2019-09-27 | XMS | Encounter Summary ---
Demographics + + + | Address | [address] | | | [place] [address] | + + + | Home Phone [...] Team Providers + +------+ + | Care Watcher Lookout Tower Name | Role | Phone | + +------+ + | Juan Cherry DO | PCP | | + +------+ + Reason for Visit + +--------+ + | Reason | Onset | Comments | | | Date | | + +--------+ + | Follow-up | 07/24/ | | | | 2019 | | + +--------+ + Encounter Details +--------+ + + + + | Date | Type | Department | Care Team | Description | +--------+ + + + + | 07/24/ | Telephone | [facility] | Meghan Garcia MD | Follow-up | | 2019 | | SLEEP DISORDER [address] | [address] | | | | | [address] [place] | [place] | | | | | [place] [address] | [address] | | | | | [phone] | | | +--------+ + + + [...] this encounter Miscellaneous Notes Telephone Encounter - Tana Luz Online Marketing Coordinator - 07/24/2018 9:58 AM PDTPatient call ed this morning stating she is still falling asleep during the day and when driving [place]. States she ends up falling asleep for 1.5-2.5 hours during the day, involuntarily. Carla may is using machine. Would like some advise on what to do. Phone number to call patient patric ack to is [phone] signed by Kevin Rivera Assistant at 07/24/2018 10:13 AM PDTdocumented in this encounter Plan of [...] [place] | | | | | | [address] | | | | | | | | +--------+---------+ + + + | 11/24/ | Office | Cardiology | [place], | | | 2019 | Visit | | SINDHU Erickson [address] | | | | | | [place], | | | | | | [place] [address] | | | | | | [phone] | | | | | | | [...]
--- OUTSIDE RECORDS SUMMARY | ~2019-09-27 | XMS | Encounter Summary ---
Demographics + + + | Address | [address] | | | [place] [address] | + + + | Home Phone [...] Providers + +------+ + | Care Stock Wetter Name | Role | Phone | + +------+ + | Juan Cherry DO | PCP | | + +------+ + Reason for Visit + + + | Reason | Comments | + + + | Follow-up | Tachyarrhythmia | + + + | Results | 48 hour Holter monitor 08/12/2013 ([facility]) | + + + | Palpitations | | + + + Encounter Details +--------+ + + + + | Date | Type | Department | Care Team | Description | +--------+ + + + + | 10/05/ | Off-Site | [facility] [place] | Jared Mcdonough, | Palpitations | | 2013 | Visit | CARDIOLOGY [address] | [address] [place] | (Primary Dx); | | | | [place], | 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 Patient denies chest [...] sleep apnea COPD (chronic obstructive pulmonary disease) ([facility]) Healthcare maintenance Preventative health care GARRY (obstructive sleep apnea) Multiple personality disorder GERD (gastroesophageal reflux disease) Diverticulosis Insomnia Sprain of chest wall Benign neoplasm of pituitary gland and craniopharyngeal duct (pouch) ([facility]) Status post total hysterectomy Irritable colon Hypoxemia ([facility]) Allergic rhinitis Tachycardia Palpitations Tachyarrhythmia [...] Daily. Respiratory Therapy [place] [facility] [place]irometer. Please provide instructions in use. [...] Need: Lifetime. [facility]. This is not a new [...] and ventricular function don e at the [facility]. LVEF 78%. C. Holter Monitor [...] is in a class II of [employer] functional class. There is [...] patient will be referred to Dr. Ding, legal process specialist at [facility] for PAT ablati on 3. Followup in 3 months Electronically signed by: Jared Mcdonough MD [facility] 10/05/2013 11:25 Portions of this chart may have been created with dough voice recognition software. Occasi onal wrong-word or [...] | | | | | [place], [place] | | | | | | [address] | | | | | | | | +--------+---------+ + + + | 11/24/ | Office | Cardiology | [place], | | | 2019 | Visit | | SINDHU Erickson [address] | | | | | | [place], | | | | | | [place] [address] | | | | | | [phone] | | | | | | | | +--------+---------+ + + + | 03/01/ | Office | Pulmonology | Mukul Clark MD | | | 2020 | Visit | | [address] | | | | | | [place] | | | | | | [address] | | | | | | | | +--------+---------+ + + + documented as of this encounter Visit Diagnoses + + | Diagnosis | + + | Palpitations - Primary | + + | Paroxysmal atrial tachycardia (HCC) Paroxysmal supraventricular tachycardia | + + documented in this encounter
--- OUTSIDE RECORDS SUMMARY | ~2019-09-27 | XMS | Encounter Summary ---
Demographics + + + | Address | [address] | | | [place] [address] | + + + | Home Phone [...] Providers + +------+ + | Care Safety Representative Name | Role | Phone | + +------+ + | Juan Cherry DO | PCP | | + +------+ + Reason for Visit +--------+--------+ + | Reason | Onset | Comments | | | Date | | +--------+--------+ + | Other | 09/06/ | increased shortness of breath | | | 2014 | | +--------+--------+ + Encounter Details +--------+ + + + + | Date | Type | Department | Care Team | Description | +--------+ + + + + | 09/06/ | Telephone | [facility] | Kevin Sandoval, | Other (increased | | 2014 | | PULMONARY [address] | MD [address] | shortness of breath) | | | | [place], | [place] | | | | | [place] [address] | [id number] | | | | | [phone] | | | +--------+ + + + [...] Telephone Encounter - Marilyn Osborne RN - 09/06/2014 4:03 PM PDTCalled Rosario and ad vised per Dr Sandoval that the DuoNeb samples are for people starting the medication and not intended to supply patient's otherwise. He would like her to start a Prednisone taper start ing at 40 mg daily for 3 days and decreasing by 10 mg every 3 days until complete. Rosario is also to take Levaquin 500 mg daily for 5 days. Prescriptions [facility] to [facility] if she can submit a sputum for culture as ordered. She states that she has been unable to produce enough sputum. elephone Encounter - Marilyn Osborne RN - 09/06/2014 10:10 AM PDTGretchen called a sking for samples of DuoNeb. She states that she has been more short of breath for 1 week an d has had increased cough for the past 2 days. Her cough is productive of a very small amoun t of mucus which has been yellowish green in color. She feels that the mucus is hard to prod uce. No fever. Rosario has been using the DuoNeb every 3-4 hours and has also been using th e ProAir. Advised that she should not use both at the same time. She continues to take the A dvair, Daliresp and Spiriva regularly. Rosario has a follow up scheduled for . documented in thi s encounter Plan [...] [place] | | | | | | [id number] | | | | | | | | +--------+---------+ + + + | 11/24/ | Office | Cardiology | [place], | | | 2019 | Visit | | SINDHU Erickson [address] | | | | | | [place] | | | | | | [place] [address] | | | | | | [phone] | | | | | | | | +--------+---------+ + + + | 03/01/ | Office | Pulmonology | Mukul Clark MD | | | 2020 | Visit | | [address] | | | | | | [place] | | | | | | [address] | | | | | | | | +--------+---------+ + + + documented as of this encounter Visit Diagnoses Not on filedocumented in this encounter"
--- OUTSIDE RECORDS SUMMARY | ~2019-09-27 | XMS | Encounter Summary ---
Demographics + + + | Address | [address] | | | [place] [address] | + + + | Home Phone [...] Providers + +------+ + | Care Turning Sander Operator Name | Role | Phone | [...] + + | 05/13/ | Office | [facility] UROLOGY | Andriy Weber | Pyuria (Primary Dx); | | 2017 | Visit | [address] | MD [address] | Interstitial | | | | [place] | [place] | cystitis | | | | [address] | [place] [address] | | | | | [phone] | [phone] | | | | | | | [...] at bedtime. She ran out of her [employer] dications approximately 2 weeks ago, and developed [...] a past medical history of Adrenal insufficiency ([facility]); Anxiety; Asthma; Benign neop lasm of pituitary gland and craniopharyngeal duct (pouch) ([facility]) (10/28/2012); Bilateral renal cysts; Complex sleep apnea syndrome; COPD (chronic obstructive pulmonary disease) ([facility]) (201 2); Depression; Diverticulitis; Diverticulosis; [...] this da rigoberto Respiratory Therapy [place] [facility] Please provide patient with necessary CPAP supplies ( she did not specify, okay to send order as appropriate) Diagnosis Code(s)327.23 . Length of Need 99 months. Please send order to [facility]. 1 each 0 Respiratory Therapy Supplies [facility] Change CPAP back to 11-14 cm H2O. All necessary suppl ies. No oxygen bleed in. Diagnosis Code(s)327.23. Length of Need: Lifetime. Please send orde r to [facility]. This [...] of instillation, we can use a 20 [place] catheter to determine urethral patency. I suggested [...] t is made to edit the content, belt cutter errors may occur. Occasional wrong- word or [...] [place] | | | | | | [address] | | | | | | | | +--------+---------+ + + + | 11/24/ | Office | Cardiology | [place], | | | 2019 | Visit | | SINDHU Erickson [address] | | | | | | [place] | | | | | | [place] [address] | | | | | | [phone] | | | | | | | | +--------+---------+ + + + | 03/01/ | Office | Pulmonology | Mukul Clark MD | | | 2020 | Visit | | [address] | | | | | | [place] | | | | | | [address] | | | | | | | [...] 1.001 - 1.030 | | | | [place], | | | | | | [facility], [...] [address] | [place] | [phone] | | [facility] | | [address] | | | - LABORATORY | | [...]
--- OUTSIDE RECORDS SUMMARY | ~2019-09-27 | XMS | Encounter Summary ---
Demographics + + + | Address | [address] | | | [place] [address] | + + + | Home Phone [...] Team Providers + +------+ + | Care Collections Manager Name | Role | Phone | [...] | Concussion | Aaron Kim MD | Back Winder [address] | | | Required | | with brief | [address] | [place] | | | | | loss of | [address] | [place], [place] | | | | | consciousnes | [place], | [address] | | | | | s Word | [place] [address] | Phone: | | | | | finding | Phone: | [phone] | | | | | difficulty | [phone] | Fax: | | | | | [phone] | Fax: | [phone] | | | | | (ICD-10-CM) | [phone] | | | | | | - [...] + + | 08/07/ | Hospital | [facility] | Aaron Rodriguez, | Concussion with | | 2017 | Encounter | MED CTR SPEECH | MD [address] | brief (less than one | | | | THERAPY [address] | [place], [place] | hour) loss of | | | | [place], | [address] | consciousness | | | | [place] [address] | | (Primary Dx); | | | | [phone] | Kathi Soto, | Impaired memory; | [...] | | | | | order to [facility]. | | | | | + [...] | 0 | 10/13/19 | | | [id number] | mouth as needed. | | | 16 | 7 | | -Cod 90-717-50-30 MG | | | | | | [...] Speech Pathologist - 08/08/2016 11:40 AM PDT [facility] SPEECH THERAPY [address] [place] [address] Speech Therapy Daily Treatment Note Date: 08/07/2016 [...] None Rehab Learning Style Flowsheet Row [employer] OP EVAL [facility]2016 [facility] [...] [place] | | | | | | [id number] | | | | | | | | +--------+---------+ + + + | 11/24/ | Office | Cardiology | [place], | | | 2019 | Visit | | SINDHU Erickson [address] | | | | | | [place] | | | | | | [place] [address] | | | | | | [phone] | | | | | | | | +--------+---------+ + + + | 03/01/ | Office | Pulmonology | Mukul Clark MD | | | 2020 | Visit | | [address] | | | | | | [place] | | | | | | [address] | | | | | | | [...]
--- OUTSIDE RECORDS SUMMARY | ~2019-09-27 | XMS | Encounter Summary ---
Demographics + + + | Address | [address] | | | [place] [address] | + + + | Home Phone [...] Providers + +------+ + | Care Fiber Artist Name | Role | Phone | + +------+ + | Ozzy Delcid MD | PCP | | + +------+ + Encounter Details +--------+ + + + + | Date | Type | Department | Care Team | Description | +--------+ + + + + | 09/28/ | Hospital | [facility] | Ozzie Hayes | | | 2011 | Encounter | MED CTR EMERGENCY | MD Ran [address] | | | | | W[address]ED [address] | [address] [place] | | | | | [place], [place] | [place] [address] | | | | | [address] | [phone] | | | | | [phone] | | | +--------+ + + + [...] who stubbed his toe this mo [facility] to arrival. Complains of pain primarily around [...] with codeine referred to followu p with [facility] doctor. Return here with new or worsening symptoms. DICTATED BY: Ozzie Hayes MD Emergency Medicine JOB #: [id number] EXT JOB #:[id number] <Electronicall y Signed by Ozzie Hayes MD> [...] | | | | | | [place] [address] | | | | | | [phone] | | | | | | | | +--------+---------+ + + + | 03/01/ | Office | Pulmonology | Mukul Clark MD | | | 2020 | Visit | | [address] | | | | | | [place] | | | | | | [address] | | | | | | | [...] | + + + | [facility] Diagnostic Imaging Department | [facility] | | [address] [facility] | [facility] | | RIGHT FOOT: CLINICAL | DIAG [...] Transcribed Date/Time: 09/29/2011 13:00 | | | White Goods Appliance Tech: <Electronically Signed by Cesar Singh | | | MD Mikal> 09/29/11 2146 | | + + + + + | Procedure Note | + + | Reed, Rad Conversion - 04/02/2013 5:48 PM [facility] | | Diagnostic Imaging Department [address] [place] [address] | | RIGHT FOOT: CLINICAL HISTORY: Trauma. [...] 12:39 | |Transcribed Date/Time: 09/29/2011 13:00 | |White Goods Appliance Tech: | |<Electronically Signed by Cesar Ren MD> [...]
--- OUTSIDE RECORDS SUMMARY | ~2019-09-27 | XMS | Encounter Summary ---
Demographics + + + | Address | [address] | | | [place] [address] | + + + | Home Phone [...] Providers + +------+ + | Care Senior Account Executive Name | Role | Phone [...] | sleep apnea) | | | | [place], | | | | | | [place] [address] | | | | | | [phone] | | | +--------+ + + + [...] | | | | | | [place] [address] | | | | | | [phone] | | | | | | | | +--------+---------+ + + + | 03/01/ | Office | Pulmonology | Mukul Clark MD | | | 2020 | Visit | | [address] | | | | | | [place] | | | | | | [address] | | | | | | | | +--------+---------+ + + + documented as of this encounter Visit Diagnoses + + | Diagnosis | + + | GARRY (obstructive sleep apnea) Obstructive sleep apnea (adult) (pediatric) | + + documented in this encounter"
--- OUTSIDE RECORDS SUMMARY | ~2019-09-27 | XMS | Encounter Summary ---
Demographics + + + | Address | [address] | | | [place] [address] | + + + | Home Phone [...] Providers + +------+ + | Care Business Attorney Name | Role | Phone | [...] [place] | | | | | [address] | [place] [address] | | | | | [phone] | [phone] | | | | | | | [...] [place] | | | | | | [address] | | | | | | | | +--------+---------+ + + + | 11/24/ | Office | Cardiology | Flores | | | 2019 | Visit | | SINDHU Erickson [address] | | | | | | [place], | | | | | | [place] [address] | | | | | | [phone] | | | | | | | [...]
--- OUTSIDE RECORDS SUMMARY | ~2019-09-27 | XMS | Encounter Summary ---
Demographics + + + | Address | [address] | | | [place] [address] | + + + | Home Phone [...] Providers + +------+ + | Care Manager Market Development Name | Role | Phone | [...] sleep | MD [address] | | | | | apnea) | [address] | [place], | | | | | Central | [place], | [place] [address] | | | | | sleep apnea | [place] [address] | Phone: | | | | | | | [phone] | | | | | | | Fax: | | | | | | | [phone] | +--------+ + + + + + [...] | sleep apnea) | | | | [address] [place], | | (Primary Dx); | | | | [place] [address] | | Central sleep apnea; | | | | [phone] | | COPD exacerbation | | | [...] cancer Colonoscopy 03/2010 Colonoscopy: 1995 at [facility] Social History: History Social History Marital Status: Single Spouse Name: N/A Number of Children: 1 Years of Education: 13 Occupational History [employer] Social History Main Topics Smoking status: [...] | | | | | | [place] [address] | | | | | | [phone] | | | | | | | | +--------+---------+ + + + | 03/01/ | Office | Pulmonology | Mukul Clark MD | | | 2020 | Visit | | [address] | | | | | | [place] | | | | | | [address] | | | | | | | [...]
--- OUTSIDE RECORDS SUMMARY | ~2019-09-27 | XMS | Encounter Summary ---
Demographics + + + | Address | [address] | | | [place] [address] | + + + | Home Phone [...] + +------+ + | Care Gravity Prospecting Observer Name | Role | Phone | + +------+ + | Juan Cherry DO | PCP | | + +------+ + Encounter Details +--------+ + + + + | Date | Type | Department | Care Team | Description | +--------+ + + + + | 03/22/ | Hospital | [facility] | Guru Cárdenas, | | | 2013 | Encounter | MED CTR EMERGENCY | MD [address] | | | | | CENTER [address] | [facility] [place] | | | | | [place], [place] | [place] [address] | | | | | [address] | [phone] | | | | | [phone] | | | +--------+ + + + [...] Guru Cárdenas MD - 03/22/2013 3:24 [place] [address] Patient Name: JADYN SCHMITZ Provider: Unit #: [id number] Location: ER : 1965 DATE: 03/22/2013 IDENTIFICATION: [...] time. She was a smoker in the [facility]. She has subsequently quit. Dr. Cherry is [...] seen and examined shortly after arriving in [facility] emergency department. History and physical obtained. Vital signs were noted. An IV was e stablished. He was given Solu-Medrol 60 mg IV. We did a DuoNeb and then an hour continuous albuterol. A CBC, basic metabolic profile, and portable chest x-ray obtained. Portable [facility] t x-ray shows hyperexpansion but no infiltrates, no pneumothorax. CBC: White count is 11.3, hemoglobin 13.4, hematocrit 39.2, platelets of 278. Basic metabolic panel is normal, with the exception of a mildly low potassium at 3.3. We observed here in the emergency [facility] for 2 hours. She states at this point that she feels much better. I talked with her about admission to the hospital versus discharge. She would like to go ahead and go home. She th inks she is good enough to go home and she has an appointment at 9 o'clock in the morning w ith her linen room attendant. I am going to put her on [...] Guru Cárdenas MD Emergency Medicine JOB #: [id number] EXT JOB #:[id number] <<Signature on File>> Guru Cárdenas MD 3469 < documented in thi s encounter Plan [...] [place] | | | | | | [address] | | | | | | | | +--------+---------+ + + + | 11/24/ | Office | Cardiology | [place], | | | 2019 | Visit | | SINDHU Erickson [address] | | | | | | [place], | | | | | | [place] [address] | | | | | | [phone] | | | | | | | | +--------+---------+ + + + | 03/01/ | Office | Pulmonology | Mukul Clark MD | | | 2020 | Visit | | [address] | | | | | | [place] | | | | | | [address] | | | | | | | [...] At | + + + | [facility] | [place] | | Department [address] [facility] | [facility] | | [ rep ct [address]] [ rep ct [facility] | | st zip] Signed | - IMAGING | | | | | Patient Name: JADYN SCHMITZ | | | Physician: SANG : 1965 Age: 48 Sex: F Unit | | | #: [id number] Exam Date: 03/22/13 Location: | | | ER Report #: [id number] Page: | | | %(RAD)RES..mtdd.print.filter("pg") of %(RAD) | | | RES..mtdd.print.filter("tpg") | | | | | | Accession Number: [id number] | | | PORTABLE CHEST CLINICAL HISTORY: [...] Transcribed Date/Time: 03/22/2013 08:50 | | | Procurement Analyst: <<Signature on File>> | | | | | | Cesar Ren MD03/22/13 1800 <Electronically signed by | | | Cesar Ren MD> Cesar Ren MD 03/22/13 | | | 0811 Procurement Analyst: Neal [id number]/27/14 0850 | | | | | + + + + + + + + | Performing | Address | City/State/Zipcode | Phone Number | | Organization | | | | + + + + + | [facility] | [address] | [place] | [phone] | | [facility] | | [address] | | | - IMAGING | | [...] [address] | [place] | [phone] | | [facility] | | [address] | | | - LABORATORY | | | | + + + + + | [facility] | [address] | [place] | | | [facility] | | [address], [facility] | | | - LABORATORY | [...] ST. | [address] | [place] | [phone] | | [facility] | | [address] | | | - LABORATORY | | | | + + + + + | [facility] | [address] | [place] | | | [facility] | | [address] [place] [address] | | | - LABORATORY | | | | + + + + + documented in this encounter Visit Diagnoses Not on filedocumented in this encounter
--- OUTSIDE RECORDS SUMMARY | ~2019-09-27 | XMS | Encounter Summary ---
Demographics + + + | Address | [address] | | | [place] [address] | + + + | Home Phone [...] Providers + +------+ + | Care Combination Welder Apprentice Name | Role | Phone | + +------+ + PCP | Unavailable | + +------+ + Encounter Details +--------+ + + + + | Date | Type | Department | Care Team | Description | +--------+ + + + + | 04/21/ | Hospital | [facility] | Nestor Martinez, | | | 2010 | Encounter | MED CTR EMERGENCY | [address] | | | | | CENTER [address] | [place], [place] | | | | | [place] | [address] | | | | | [address] | | | | | | [phone] | | | +--------+ + + + [...] | | | | | | [place] [address] | | | | | | [phone] | | | | | | | [...]
--- OUTSIDE RECORDS SUMMARY | ~2019-09-27 | XMS | Encounter Summary ---
Demographics + + + | Address | [address] | | | [place] [address] | + + + | Home Phone [...] Team Providers + +------+ + | Care Telehealth Nurse Name | Role | Phone | [...] + + | 12/15/ | Emergency | [facility] | Heriberto | Lower abdominal pain | | 2018 | | [facility] | Ozzy Kim MD [address] | (Primary Dx) | | | | [address] | [facility] | | | | | [place] | [place] [address] | | | | | [address] | [phone] | | | | | [phone] | | | +--------+ + + + [...] 12/15/2017Home and rest Drink plenty of fluids [place] for pain control Return here or see [...] | | | | order to [facility]. | | | | | [...] | | | | | [facility]. | | | | [...] might be differe nt from the original. [facility] Rosario Malik Emergency Department Encounter Note [address] [place] [address] PCP:Yong Cherry DO [phone] DIAGNOSIS: 1. Lower abdominal pain CHIEF COMPLAINT: Chief Complaint Patient presents with Abdominal Pain low Urinary Complaint Mode of Arrival: walk-in ED Room: ED09 [facility] Rosario Malik is a 52 y.o. [...] Note Last Updated: 10/21/2016 Echocardiogram, 08/23/2013 at [facility] shows normal systolic left ventricular and [...] Mcdonough MD. COPD (chronic obstructive pulmonary disease) ([facility]) 11/14/2011 Priority: Medium Hypothyroidism Priority: Medium Note [...] emphysema (HCC) Note Last Updated: 07/12/2014 PLRU [id number] Decision Migraine Allergic rhinitis 06/18/2013 Hypoxemia 04/27/2013 Sprain of chest wall 04/12/2013 Insomnia 02/22/2013 Diverticulosis 01/25/2013 Multiple personality disorder (HCC) GERD (gastroesophageal reflux disease) Benign neoplasm of pituitary gland and craniopharyngeal duct (pouch) (HCC) 10/28/2012 Note Last Updated: 04/27/2013 Overview: Managed by [facility] along with hypothyroidism Status post total hysterectomy 10/20/2012 Irritable colon 10/20/2012 GARRY (obstructive sleep apnea) 05/23/2012 Preventative health care 03/11/2012 Note Last Updated: 03/11/2012 [facility] 04/12/2010 Diverticulosis Next Colonoscopy Mammo Pap Past Surgical History: Procedure Laterality Date COLONOSCOPY 03/2010 COLONOSCOPY 1995 [facility] HAMMER TOE SURGERY right sided HERNIA REPAIR 11/29/2015 [facility] HIATAL HERNIA REPAIR Hiatal hernia HYSTERECTOMY KNEE SURGERY right OTHER SURGICAL HISTORY 02/28/2014 [facility] with Radial approach; Laterality: Left; Surgeon: Jared Mcdonough MD; Location: [facility] CARDIO VASCULAR LAB MILES AND BSO Ovarian cysts, not cancer TONSILLECTOMY Age 6 TURBT N/A 11/22/2015 Procedure: Cystoscopy, Hydrodistention & Bladder Biopsy; Surgeon: Andriy Amaya MD ; Location: [facility] MAIN OR WRIST SURGERY right CURRENT MEDICATIONS [...] Need: Lifetime. Please send orde r to [facility]. This is not a new order, just a change in settings. RESPIRATORY THERAPY SUPPLIES [place] Please provide patient with necessary CPAP supplies ( she did not specify, okay to send order as appropriate) Diagnosis Code(s)327.23 . Length of Need 99 months. Please send order to [facility]. ROFLUMILAST (DALIRESP) 500 MCG TABLET Take [...] UA, POC Negative Negative, 100 mg/dL Specific [place], UA, POC 1.005 1.001 - 1.030 Blood, [...] improving Contact information: [address] [place] [address] New Prescriptions HYDROCODONE-ACETAMINOPHEN (NORCO) 5-325 MG [...] Portions of this chart were created with Tego voice recognition software. Inadvertent so und alike [...] [place] | | | | | | [address] | | | | | | | | +--------+---------+ + + + | 11/24/ | Office | Cardiology | Flores, | | | 2019 | Visit | | SINDHU Erickson [address] | | | | | | [address], | | | | | | [place] [address] | | | | | | [phone] | | | | | | | | +--------+---------+ + + + | 03/01/ | Office | Pulmonology | Mukul Clark MD | | | 2020 | Visit | | [address] | | | | | | [place] | | | | | | [address] | | | | | | | [...] W?MRN: | | | | | | [id number] | | | [id number] | | | his | | | [...] | | | [place] | | | [facility], | | | [place] - | | | [email or web address] | | | ollect | | | ivemed | | | icalte | | | [email or web address] | | | | +---+--------+ documented in [...] | 0.79 | 0.60 - 1.30 | [facility] | | | | | mg/dL | [facility] | | | | | [facility] | | | | | | [facility] - | | | | | | LABORATORY | | + + + + + + | eGFR, | >60Comment: GLOMERULAR | >=60 | [facility] | | | non- | FILTRATION | mL/min/1.73m2 | [facility]ER[facility] | | | [place] | RATE,ESTIMATED | | MEDICAL | | | | mL/min/1.44h9Uihq than | | CENTER - | | [...] [address] | [place] | [phone] | | [facility] | | [address] | | | - LABORATORY | | [...] | | Neutrophils | | | [facility] | | [...] [address] | [place] | [phone] | | [facility] | | [address] | | | - LABORATORY | | [...] ST. | [address] | [place], [place] | [phone] | | [facility] | | [address] | | | - LABORATORY | | [...] 1.001 - 1.030 | | | | [place], | | | | | | UA, [...]
--- OUTSIDE RECORDS SUMMARY | ~2019-09-27 | XMS | Encounter Summary ---
Demographics + + + | Address | [address] | | | [place] [address] | + + + | Home Phone [...] Team Providers + +------+ + | Care Workers Compensation Consultant Name | Role | Phone | [...] [address] | | | | | [place], | [place], [place] | | | | | [place] [address] | [address] | | | | | [phone] | | | +--------+--------+ + + + [...] [place] | | | | | | 8904[address] | | | | | | | | +--------+---------+ + + + | 10/01/ | Office | Cardiology | Flores, | | | 2019 | Visit | | SINDHU Erickson [address] | | | | | | [place] | | | | | | [place] [address] | | | | | | [phone] | | | | | | | [...]
--- OUTSIDE RECORDS SUMMARY | ~2019-09-27 | XMS | Encounter Summary ---
Demographics + + + | Address | [address] | | | [place] [address] | + + + | Home Phone [...] Team Providers + +------+ + | Care Dining Room Hostess Name | Role | Phone | + [...] + + | 04/18/ | Office | [facility] | Kevin Sandoval, | COPD (chronic | | 2015 | Visit | PULMONARY [address] | MD [address] | obstructive | | | | [place], | [place], [place] | pulmonary disease) | | | | [place] [address] | [address] | ([facility]) (Primary Dx); | | | | [phone] | | GARRY (obstructive | | | [...] Kevin Sandoval MD - 04/18/2014 9:15 AM PST Patient Education Prednisone Gastro-resistant tablet Prednisone Oral [...] if you have any of these conditions: Washburn's syndrome diabetes glaucoma heart disease high blood [...] avoid any side effects. Talk to your dyeing machine back tender regarding the use of this medicine in [...] ta lk to your doctor or health pharmacy care coordinator. You may need to miss a dose [...] this medicine? Visit your doctor or health pharmacy care coordinator for regular checks on your progress. If [...] have surgery, tell your doctor or health pharmacy care coordinator that you hav e taken this medicine within the last twelve months. Ask your doctor or health pharmacy care coordinator about your diet. You may need to lower the amou nt of salt you eat. This medicine may affect blood sugar levels. If you have diabetes, check with your doctor o r health pharmacy care coordinator before you change your diet or the dose of your diabetic medicine . What side effects may I notice from receiving this medicine? Side effects that you should report to your doctor or health pharmacy care coordinator as soon as p ossible: [...] attention (report to your doctor or health pharmacy care coordinator if they continue or are bothersome): confusion, excitement, restlessness headache nausea, vomiting skin problems, acne, thin and shiny skin trouble sleeping weight gain This list may not describe all possible side effects. Call your doctor for medical advice a bout side effects. You may report side effects to FDA at 7-193-ZQK-9105. Where should I keep my medicine? Keep [...] rom the original. Pulmonary Follow Up 04/18/2014 HPI Rosario Malik is a 49 y.o. [...] for a COPD exacerbation since our last c linic appointment. They are currently on a daily [...] [facility]) 10/28/2012 Overview: Managed by [facility] [...] 30 tablet, Rfl: 3, Respiratory Therapy Supplies [facility], Please provide patient with necessary CPAP supplies (she did not specify, okay to send order as appropriate) Diagnosis Code(s)327.23 . Length of Nee d 99 months. Please send order to [facility] Disp: 1 each, Rfl: 0, Respiratory Therapy Supplies MISC, Change CPAP back to 11-14 cm H2O. All necessary supplies . No oxygen bleed in. Diagnosis Code(s)327.23. Length of Need: Lifetime. [facility] This is not a new order, just [...] at a pressure of 9 cm H2O. Outlook lent compliance noted. 3. Hypoxemia patient wears [...] [place] | | | | | | [id number] | | | | | | | | +--------+---------+ + + + | 11/24/ | Office | Cardiology | Flores, | | | 2019 | Visit | | SINDHU Erickson [address] | | | | | | [place] | | | | | | [place] [address] | | | | | | [phone] | | | | | | | | +--------+---------+ + + + | 03/01/ | Office | Pulmonology | Mukul Clark MD | | | 2020 | Visit | | [address] | | | | | | [place] [facility] [place] | | | | | | [address] | | | | | | | [...]
--- OUTSIDE RECORDS SUMMARY | ~2019-09-27 | XMS | Encounter Summary ---
Demographics + + + | Address | [address] | | | [place] [address] | + + + | Home Phone [...] Providers + +------+ + | Care Granite Worker Name | Role | Phone | [...] Alonso MD | | | | | [place], | | | | | | [place] [address] | | | | | | [phone] | | | +--------+--------+ + + + [...] | | | | | | [place] [address] | | | | | | [phone] | | | | | | | | +--------+---------+ + + + | 03/01/ | Office | Pulmonology | Mukul Clark MD | | | 2020 | Visit | | [address] | | | | | | [place] | | | | | | [address] | | | | | | | | +--------+---------+ + + + documented as of this encounter Visit Diagnoses Not on filedocumented in this encounter"
--- OUTSIDE RECORDS SUMMARY | ~2019-09-27 | XMS | Encounter Summary ---
Demographics + + + | Address | [address] | | | [place] [address] | + + + | Home Phone [...] Providers + +------+ + | Care Food Truck Caterer Name | Role | Phone | + +------+ + | Juan Cherry DO | PCP | | + +------+ + Encounter Details +--------+ + + + + | Date | Type | Department | Care Team | Description | +--------+ + + + + | 02/21/ | Abstract | [facility] | [place], | | | 2013 | | CARDIOLOGY [address] | SINDHU Erickson [address] | | | | | [place], | [place], | | | | | [place] [address] | [place] [address] | | | | | [phone] | [phone] | | | | | | | [...] [place] | | | | | | [address] | | | | | | | | +--------+---------+ + + + | 11/24/ | Office | Cardiology | Flores, | | | 2019 | Visit | | SINDHU Erickson [address] | | | | | | [place] | | | | | | [place] [address] | | | | | | [phone] | | | | | | | | +--------+---------+ + + + | 03/01/ | Office | Pulmonology | Mukul Clark MD | | | 2020 | Visit | | [address] | | | | | | [place] | | | | | | [address] | | | | | | | | +--------+---------+ + + + documented as of this encounter Visit Diagnoses Not on filedocumented in this encounter"
--- OUTSIDE RECORDS SUMMARY | ~2019-09-27 | XMS | Encounter Summary ---
Demographics + + + | Address | [address] | | | [place] [address] | + + + | Home Phone [...] Team Providers + +------+ + | Care Clammer Name | Role | Phone | + [...] [address] | | | | | | [place], [place] | | | | | | [address] | | | | | | [phone] | | | +--------+ + + + [...] [place] | | | | | | [address] | | | | | | | | +--------+---------+ + + + | 11/24/ | Office | Cardiology | Flores, | | | 2020 | Visit | | SINDHU Erickson [address] | | | | | | [address] [place] | | | | | | [place] [address] | | | | | | [phone] | | | | | | | | +--------+---------+ + + + | 03/01/ | Office | Pulmonology | Mukul Clark MD | | | 2020 | Visit | | [address] | | | | | | [place] | | | | | | [address] | | | | | | | [...]
--- OUTSIDE RECORDS SUMMARY | ~2019-09-27 | XMS | Encounter Summary ---
Demographics + + + | Address | [address] | | | [place] [address] | + + + | Home Phone [...] Providers + +------+ + | Care Wind Operations Manager Name | Role | Phone | + +------+ + PCP | Unavailable | + +------+ + Encounter Details +--------+ + + + + | Date | Type | Department | Care Team | Description | +--------+ + + + + | 05/11/ | Hospital | [facility] | Soco Vizcaino MD | Special screening | | 2010 | Encounter | CONVERSION DEP [address] | [address] | for osteoporosis | | | | [address] | [place] [address] | | | | | [place], [place] | [phone] | | | | | [address] | | | | | | [phone] | | | +--------+ + + + [...] [place] | | | | | | [address] | | | | | | | | +--------+---------+ + + + | 11/24/ | Office | Cardiology | Flores, | | | 2019 | Visit | | SINDHU Erickson [address] | | | | | | [place] | | | | | | [place] [address] | | | | | | [phone] | | | | | | | | +--------+---------+ + + + | 03/01/ | Office | Pulmonology | Mukul Clark MD | | | 2020 | Visit | | [address] | | | | | | [place] | | | | | | [address] | | | | | | | [...] + + + | [facility] [address] Ph: | | | Patient Name: JADYN SCHMITZ Date of : | | | 1965 Medical Record: [id number] Account: [id number] | | | Exam Date/Time: 05/11/2010 11:30 [...] was scanned in the anterior projection and ialqzr-hl-bfzpolwo | | | values were drawn about the vertebral segments of L1 through L4 at | | | the levels where accurate assessment was possible. A bone mineral | | | analysis was also performed on the left hip with umeoig-yi-nvanialt | | | areas including the femoral [...] 10/17/2018 5:21 PM PDT | | [facility] | | [facility] [address] | | | | | | Patient Name: JADYN SCHMITZ | | Date of : 1965 | | Medical Record: [id number] | | Account: [id number] | | | | | | Exam [...] | scanned in the anterior projection and xucvsp-pa-ypyncojg values were drawn | | about the vertebral segments of L1 through L4 at the levels where accurate | | assessment was possible. A bone mineral analysis was also performed on the | | left hip with typzsj-us-poaxldbo areas including the femoral neck measured. | [...]
--- OUTSIDE RECORDS SUMMARY | ~2019-09-27 | XMS | Encounter Summary ---
Demographics + + + | Address | [address] | | | [place] [address] | + + + | Home Phone [...] Team Providers + +------+ + | Care Paralegals Name | Role | Phone | + +------+ + | Juan Cherry DO | PCP | | + +------+ + Encounter Details +--------+---------+ + + + | Date | Type | Department | Care Team | Description | +--------+---------+ + + + | 08/17/ | Office | [facility] | Meghan Garcia MD | GARRY (obstructive | | 2018 | Visit | SLEEP DISORDER [address] | [address] | sleep apnea) | | | | [address] [place] | [place] | (Primary Dx); C[place] | | | | [place] [address] | [address] | (central sleep | | | | [phone] | | apnea); Insufficient | | | [...] years before she was switched to bilevel [id number]. I reviewed the notes from Dr Chris Alarcon in [place], [place].It indicates that patient had CPAP intolerance [...] day for h er COPD through her chief innovation officer. We performed a CPAP titration study on [...] time spent below SpO2 of 90% was0%.Transcutaneous JV8owqkvx 35-37mmHg during supine wake,a nd remained between [...] higher. Patient continued to have awakenings at [facility], and also excessive daytime sleepiness. [...] breaths does not meet criteria for an butcher scullion ea or hypopnea. REVELANT MEDICATIONS: Gabapentin, prednisone, tramadol, Ziprasidone. SUBJECTIVE: The patient rated sleep quality during sleep study as usual. Needle Loom Weaver note: Patient continues to struggle with mask [...] Leak. I s ent a prescription to [place] for nasal mask and chin strap. I [...] book, or do some g uided meditation (PlayyOn) in part of her living room that [...] [place] | | | | | | [address] | | | | | | | | +--------+---------+ + + + | 11/24/ | Office | Cardiology | [place], | | | 2019 | Visit | | SINDHU Erickson [address] | | | | | | [place] | | | | | | [place] [address] | | | | | | [phone] | | | | | | | | +--------+---------+ + + + | 03/01/ | Office | Pulmonology | Mukul Clark MD | | | 2020 | Visit | | [address] | | | | | | [place] | | | | | | [address] | | | | | | | [...]
--- OUTSIDE RECORDS SUMMARY | ~2019-09-27 | XMS | Encounter Summary ---
Demographics + + + | Address | [address] | | | [place] [address] | + + + | Home Phone [...] Providers + +------+ + | Care Chief Radiation Therapist Name | Role | Phone [...] + | 07/25/ | Documentati | [facility] | Kathi Soto, | No Show | | 2017 | on | MED CTR SPEECH | Speech Pathologist | | | | | THERAPY [address] | | | | | | [place], | | | | | | [place] [address] | | | | | | [phone] | | | +--------+ + + + [...] Speech Pathologist - 07/25/2016 1:58 [facility] [address] [place] [address] Cancellation/No Show Date: 07/25/2016 Patient Information Patient [...] | | | | | | [place] [address] | | | | | | [phone] | | | | | | | [...]
--- OUTSIDE RECORDS SUMMARY | ~2019-09-27 | XMS | Encounter Summary ---
Demographics + + + | Address | [address] | | | [place] [address] | + + + | Home Phone [...] Team Providers + +------+ + | Care Document Control Supervisor Name | Role | Phone | [...] Provider Unknown | | | | | [place], [place] | [phone] | | | | | [address] | | | | | | [phone] | | | +--------+ + + + [...] [place] | | | | | | [address] | | | | | | | | +--------+---------+ + + + | 11/24/ | Office | Cardiology | [place], | | | 2019 | Visit | | SINDHU Erickson [address] | | | | | | [place] | | | | | | [place] [address] | | | | | | [phone] | | | | | | | | +--------+---------+ + + + | 03/01/ | Office | Pulmonology | Mukul Clark MD | | | 2020 | Visit | | [address] | | | | | | [place] | | | | | | [address] | | | | | | | [...]
--- OUTSIDE RECORDS SUMMARY | ~2019-09-27 | XMS | Encounter Summary ---
Demographics + + + | Address | [address] | | | [place] [address] | + + + | Home Phone [...] Team Providers + +------+ + | Care White Metal Caster Name | Role | Phone | + +------+ + PCP | Unavailable | + +------+ + Encounter Details +--------+ + + + + | Date | Type | Department | Care Team | Description | +--------+ + + + + | 01/12/ | [facility] | [facility] | | | | 2008 | Encounter | MED CTR LABORATORY | | | | | | [address] | | | | | | [place] | | | | | | [address] | | | | | | [phone] | | | +--------+ + + + [...] | | | | | | [place] [address] | | | | | | [phone] | | | | | | | | +--------+---------+ + + + | 03/01/ | Office | Pulmonology | Mukul Clark MD | | | 2020 | Visit | | [address] | | | | | | [place] | | | | | | [address] | | | | | | | | +--------+---------+ + + + documented as of this encounter Visit Diagnoses Not on filedocumented in this encounter"
--- OUTSIDE RECORDS SUMMARY | ~2019-09-27 | XMS | Encounter Summary ---
Demographics + + + | Address | [address] | | | [place] [address] | + + + | Home Phone [...] Providers + +------+ + | Care Carpenter Supervisor Name | Role | Phone | [...] | | | | | [address] | [address] [place], [place] | | | | | [place], [place] | [address] | | | | | [address] | | | | | | [phone] | | | +--------+ + + + [...] +----+---+ + + | | 0 | [place] | | | | 7 | 43-degrees [...] 11/22/15 1025 by | | eral | cbnn-zni-nayqzc catheter system; | Kelsie Gandhi RN | [...] EVALUATION Rosario Malik 50 y.o. female 1965 [id number] Procedure(s) Cystoscopy, Hydrodistention & Bladder Biopsy (N/A [...] by Kevin Worthy MD 11/22/2015 8:39 [facility] nesthesia Preproc edure Evaluation - Kevin Worthy MD - 11/22/2015 7:04 AM PDTFormatting of this note m ight be different from the original. ANESTHESIA PREANESTHESIA EVALUATION Rosario Malik 50 y.o. female 1965 [id number] Procedure(s): Cystoscopy, Hydrodistention & Bladder Biopsy (N/A [...] [place] | | | | | | [id number] | | | | | | | | +--------+---------+ + + + | 11/24/ | Office | Cardiology | [place], | | | 2019 | Visit | | SINDHU Erickson [address] | | | | | | [place] | | | | | | [place] [address] | | | | | | [phone] | | | | | | | [...]
--- OUTSIDE RECORDS SUMMARY | ~2019-09-27 | XMS | Encounter Summary ---
Demographics + + + | Address | [address] | | | [place] [address] | + + + | Home Phone [...] Providers + +------+ + | Care Security Systems Technician Name | Role | Phone [...] + + | 05/15/ | Office | [facility] | Offenstein, | GARRY (obstructive | | 2012 | Visit | PULMONARY [address] | Loreta Alonso MD | sleep apnea) | | | | [place], | | (Primary Dx); | | | | [place] [address] | | Central sleep apnea; | | | | [phone] | | Insomnia; COPD | | | [...] will send a corrected CPAP order to [facility]. 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 Clarification for order from [...] made to ensure accuracy; however, inadvertent computerized research food technologist errors may be pre sent. documented in [...] [place] | | | | | | [address] | | | | | | | | +--------+---------+ + + + | 11/24/ | Office | Cardiology | [place], | | | 2019 | Visit | | SINDHU Erickson [address] | | | | | | [place], | | | | | | [place] [address] | | | | | | [phone] | | | | | | | | +--------+---------+ + + + | 03/01/ | Office | Pulmonology | Mukul Clark MD | | | 2020 | Visit | | [address] | | | | | | [place] | | | | | | [address] | | | | | | | [...]
--- OUTSIDE RECORDS SUMMARY | ~2019-09-27 | XMS | Encounter Summary ---
Demographics + + + | Address | [address] | | | [place] [address] | + + + | Home Phone [...] | | +--------+--------+ + | Other | 10/05/ | RETURNING CALL | | | 2016 | | +--------+--------+ + Encounter Details +--------+ + + + + | Date | Type | Department | Care Team | Description | +--------+ + + + + | 10/05/ | Telephone | [facility] | Andriy Weber | Leora (RETURNING | | 2015 | | [address] | MD [address] | CALL) | | | | [place] | [address] | | | | | [address] | [place] [address] | | | | | [phone] | [phone] | | | | | | | [...] Telephone Encounter - Loraine Hawkins RN - 10/16/2015 5:31 PM PDTDuplicate encounter. See other phone note. P DTTelephone Encounter - Marion Tay - 10/06/2015 10:12 AM PDTRETURNING THE NURSES MCCABE lectronically signed by Marion Tay at 10/06/2015 10:12 AM PDTdocumented in this encount er Plan of Treatment +--------+---------+ + + + | Date | Type | Specialty | Care Team | Description | +--------+---------+ + + + | 09/27/ | Office | Sleep Medicine | Meghan Garcia MD | | | 2019 | Visit | | [address] | | | | | | [place] | | | | | | [address] | | | | | | | | +--------+---------+ + + + | 11/24/ | Office | Cardiology | [place], | | | 2019 | Visit | | SINDHU Erickson [address] | | | | | | [place], | | | | | | [place] [address] | | | | | | [phone] | | | | | | | [...]
--- OUTSIDE RECORDS SUMMARY | ~2019-09-27 | XMS | Encounter Summary ---
Demographics + + + | Address | [address] | | | [place] [address] | + + + | Home Phone [...] Providers + +------+ + | Care Production Control Expert Name | Role | Phone | [...] Cert [place] | | | | | [place], | | | | | | [place] [address] | | | | | | [phone] | | | +--------+ + + + [...] | | | | | | [place] [address] | | | | | | [phone] | | | | | | | | +--------+---------+ + + + | 03/01/ | Office | Pulmonology | Mukul Clark MD | | | 2020 | Visit | | [address] | | | | | | [place] | | | | | | [address] | | | | | | | | +--------+---------+ + + + documented as of this encounter Visit Diagnoses Not on filedocumented in this encounter"
--- OUTSIDE RECORDS SUMMARY | ~2019-09-27 | XMS | Encounter Summary ---
Demographics + + + | Address | [address] | | | [place] [address] | + + + | Home Phone [...] Providers + +------+ + | Care Oracle Developer Name | Role | Phone | [...] + + | 11/20/ | [facility] | [facility] | Dre Gibson MD | Diverticulitis | | 2013 | Visit | CARE [address] | [address] | (Primary Dx); | | | | [place] | [place] | Abdominal pain | | | | [address] | [address] | | | | | [phone] | | | +--------+---------+ + + + [...] color of the stools) Unexpected vaginal bleeding 9901-4032 [facility], [address] [place] [address], [place] [address]. All rights reserve d. This information is [...] [place] | | | | | | [address] | | | | | | | | +--------+---------+ + + + | 11/24/ | Office | Cardiology | [place], | | | 2019 | Visit | | SINDHU Erickson [address] | | | | | | [place], | | | | | | [place] [address] | | | | | | [phone] | | | | | | | | +--------+---------+ + + + | 03/01/ | Office | Pulmonology | Mukul Clark MD | | | 2020 | Visit | | [address] | | | | | | [place] | | | | | | [address] | | | | | | | [...] | 1.010 | | | | | [place], | | | | | | [facility], [...]
--- OUTSIDE RECORDS SUMMARY | ~2019-09-27 | XMS | Encounter Summary ---
Demographics + + + | Address | [address] | | | [place] [address] | + + + | Home Phone [...] Providers + +------+ + | Care Logging Crew Supervisor Name | Role | Phone [...] + + | 04/06/ | Office | [facility] | Brian Miranda | Sprain of chest wall | | 2014 | Visit | OCCUPATIONAL HEALTH | MD Ozzy Need | (Primary Dx); Place | | | | [place] [address] | updated address | of occurrence, | | | | [address] [place] | | industrial places | | | | [place], [place] | | and premises | | | | [address] | | | | | | [phone] | | | +--------+---------+ + + + [...] MD - 04/06/2013 5:30 PM PSTSee dictation [id number] lisha d by Brian Miranda MD at 04/06/2013 5:30 PM Brian Avendano MD - 04/06/19 14 12:00 AM [facility] [address] [place] [address] FAX: [phone] OFFICE VISIT CLAIM NO: [id number] DATE OF INJURY: 04/05/2013 EMPLOYER: Jelani Alcantara GUARANTOR: Jelani Rojas COMPLAINT: Chest wall sprain, unscheduled visit for followup evaluation and ongoing care. S: The injured worker is 48 years of age who presented without a scheduled appointment at [facility] urgent care/Occ/Med for an evaluation. [...] GChris Miranda MD / AP JOB #: [id number] signed by Brian Miranda MD at 04/07/2013 10:26 AM PSTd ocumented in this encounter Miscellaneous Notes Plan of Care - [facility] - 04/06/2013 12:00 AM PST lan of Care - [facility] - 04/06/2013 12:00 AM PSTElect ronically signed by Rolando Pozo at 04/09/2013 4:57 PM PSTPlan of Care - [facility] - 04/06/2013 12:00 AM PST isc ellaneous - [facility] - 04/06/2013 12:00 AM PST documented in [...] | | | | | | [place] [address] | | | | | | [phone] | | | | | | | | +--------+---------+ + + + | 03/01/ | Office | Pulmonology | Mukul Clark MD | | | 2020 | Visit | | [address] | | | | | | [place] | | | | | | [address] | | | | | | | [...]
--- OUTSIDE RECORDS SUMMARY | ~2019-09-27 | XMS | Encounter Summary ---
Demographics + + + | Address | [address] | | | [place] [address] | + + + | Home Phone [...] Providers + +------+ + | Care Wastewater Treatment Plant Instructor Name | Role | Phone | + +------+ + PCP | Unavailable | + +------+ + Encounter Details +--------+ + + + + | Date | Type | Department | Care Team | Description | +--------+ + + + + | 10/27/ | [facility] | [facility] | | | | 2008 - | Encounter | MED CTR OP REHAB | | | | | | [address] | | | | 11/23/ | | [place] [address] | | | | 2008 | | [phone] | | | +--------+ + + + [...] | | | | | | [place] [address] | | | | | | [phone] | | | | | | | | +--------+---------+ + + + | 03/01/ | Office | Pulmonology | Mukul Clark MD | | | 2020 | Visit | | [address] | | | | | | [place] | | | | | | [address] | | | | | | | | +--------+---------+ + + + documented as of this encounter Visit Diagnoses Not on filedocumented in this encounter"
--- OUTSIDE RECORDS SUMMARY | ~2019-09-27 | XMS | Encounter Summary ---
Demographics + + + | Address | [address] | | | [place] [address] | + + + | Home Phone [...] Providers + +------+ + | Care Customer Account Specialist Name | Role | Phone | [...] + + | 02/19/ | Office | [facility] | Elda Miranda | Diarrhea (Primary | | 2011 | Visit | CONVENIENT CARE [address] | MD [address] | Dx); Dysuria | | | | [facility] | [address] [facility] | | | | | [place] | [place] [address] | | | | | [address] | [phone] | | | | | [phone] | | | +--------+---------+ + + + [...] Vital signs as noted, nursing notes reviewed. Fxaivqy-sdgc-zkbdiuzeh well-nourished female in no apparent distress, pleasant [...] | | | | | | [place] [address] | | | | | | [phone] | | | | | | | | +--------+---------+ + + + | 03/01/ | Office | Pulmonology | Mukul Clark MD | | | 2020 | Visit | | [address] | | | | | | Jose [place] [facility] [place] | | | | | | [address] | | | | | | | [...] | 1.015 | | | | | [place], | | | | | | [facility], [...]
--- OUTSIDE RECORDS SUMMARY | ~2019-09-27 | XMS | Encounter Summary ---
Demographics + + + | Address | [address] | | | [place] [address] | + + + | Home Phone [...] + +------+ + | Care Professor Of Nursing Name | Role | [...] | | | | Insomnia due | [address] | | | | | | to medical | [place], | | | | | | condition | [place] [address] | | | | | | History of | Phone: | | | | | | bipolar | [phone] | | | | | | disorder | Fax: | | | | | | Procedures | [phone] | | | | | | HIM [...] + + | 05/16/ | Office | [facility] [place] | Aaron Rodriguez, | Concussion with | | 2016 | Visit | PHYSIATRY [address] | MD [address] | brief loss of | | | | [address] | [place] | consciousness | | | | [place] | [phone] | (Primary Dx); | | | | [address] | | Post-concussion | | | | [phone] | | headache; Other | | | [...] she was seen by a counselor at [facility] yesterday, al though she does not feel the counselor is a good fit for her. Patient states she will contin ue to stay with her Provider at [facility] until she is able to [...] thinking about suicide she will seek [facility] help. Rosaroi Malik reports sleep symptoms including: drowsiness and [...] SYSTEM - [place]) 10/28/2012 Overview: Managed by [facility] along with hypothyroidism Osteoarthritis Tachycardia Asthma Emphysema [...] surgery right Hysterectomy Other surgical history 02/28/2014 [facility] with Radial approach; Laterality: Left; Surgeon: Jared Mcdonough MD; Location: [facility] CARDIO VASCULAR LAB Tonsillectomy Age 6 Turbt N/A 11/22/2015 Procedure: Cystoscopy, Hydrodistention & Bladder Biopsy; Surgeon: Yinka Melendez; Location: [facility] MAIN OR Hernia repair 11/29/2015 [facility] Family History: Family History Problem Relation Age [...] 1 Years of Education: 13 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 360 mL 5 Wlzormqiuv-HQGG-Epom-Cod 44-460-06-30 MG CAPS Take 1 capsule by mouth [...] suicidal ideation. She has suicide contract with [facility]. She agrees to seek emergent [...] | | | | | | [place] [address] | | | | | | [phone] | | | | | | | | +--------+---------+ + + + | 03/01/ | Office | Pulmonology | Mukul Clark MD | | | 2020 | Visit | | [address] | | | | | | [place] | | | | | | [phone] | | | | | | | [...]
--- OUTSIDE RECORDS SUMMARY | ~2019-09-27 | XMS | Encounter Summary ---
Demographics + + + | Address | [address] | | | [place] [address] | + + + | Home Phone [...] Team Providers + +------+ + | Care Helminthology Teacher Name | Role | Phone | [...] | Pulmonary | MD Mukul | [address] | | | | | emphysema, | [address] | [place], | | | | | unspecified | [address] | [place] [address] | | | | | emphysema | [place] [address] | Phone: | | | | | type (HCC) | [place], [place] | [phone] | | | | | Procedures | [address] | Fax: | | | | | CT Chest wo | Phone: | [phone] | | | | | Contrast | [phone] | | | | | | | Fax: | | | | | | | [phone] | | +--------+--------+ + + + + [...] | Pulmonary | MD Mukul | [address] | | | | | emphysema, | [address] | [place], | | | | | unspecified | [address] | [place] [address] | | | | | emphysema | [place] [address] | Phone: | | | | | type (HCC) | [place], [place] | [phone] | | | | | Procedures | [address] | Fax: | | | | | CT Chest wo | Phone: | [phone] | | | | | Contrast | [phone] | | | | | | | Fax: | | | | | | | [phone] | | +--------+--------+ + + + + Encounter Details +--------+ + + + + | Date | Type | Department | Care Team | Description | +--------+ + + + + | 03/05/ | Hospital | [facility] | Mukul Clark MD | Pulmonary emphysema, | | 2017 | Encounter | MED CTR CT [address] | [address] | unspecified | | | | [address], | [place], [place] | emphysema type (HCC) | | | | [place] [address] | [address] | | | | | [phone] | | | +--------+ + + + [...] | 0 | 10/13/19 | | | Vbjcgiuwie-YTYQ-Yfhi | mouth as needed. | | | 16 | 7 | | -Cod [id number] MG | | | | | | [...] | | | | | | [place] [address] | | | | | | [phone] | | | | | | | | +--------+---------+ + + + | 03/01/ | Office | Pulmonology | Mukul Clark MD | | | 2020 | Visit | | [address] | | | | | | [place] | | | | | | [address] | | | | | | | [...] unspecified emphysema type (HCC). COMPARISON: | [facility] | | 11/16/2013, 02/09/2010. PROTOCOL: [...] ST. | [address] | [place] | [phone] | | [facility] | | [address] | | | - IMAGING | | | | + + + + + documented in this encounter Visit Diagnoses + + | Diagnosis | + + | Pulmonary emphysema, unspecified emphysema type (HCC) | + + documented in this encounter
--- OUTSIDE RECORDS SUMMARY | ~2019-09-27 | XMS | Encounter Summary ---
Demographics + + + | Address | [address] | | | [place] [address] | + + + | Home Phone [...] Team Providers + +------+ + | Care Arm Rest Builder Name | Role | Phone | + +------+ + PCP | Unavailable | + +------+ + Encounter Details +--------+ + + + + | Date | Type | Department | Care Team | Description | +--------+ + + + + | 10/18/ | [facility] | [facility] | | | | 2008 - | Encounter | MED CTR OP REHAB | | | | | | [address] | | | | 10/24/ | | [place] [address] | | | | 2008 | | [phone] | | | +--------+ + + + [...] | | | | | | [place] [address] | | | | | | [phone] | | | | | | | | +--------+---------+ + + + | 03/01/ | Office | Pulmonology | Mukul Clark MD | | | 2020 | Visit | | [address] | | | | | | [place] | | | | | | [address] | | | | | | | | +--------+---------+ + + + documented as of this encounter Visit Diagnoses Not on filedocumented in this encounter"
--- OUTSIDE RECORDS SUMMARY | ~2019-09-27 | XMS | Encounter Summary ---
Demographics + + + | Address | [address] | | | [place] [address] | + + + | Home Phone [...] Team Providers + +------+ + | Care Blacksmith Farm Name | Role | Phone | + [...] + + | 10/03/ | Office | [facility] | Andriy Weber | Cystitis (Primary | | 2016 | Visit | [address] | MD [address] | Dx) | | | | [place] | [place] | | | | | [address] | [place] [address] | | | | | [phone] | [phone] | | | | | | | [...] She has a way to go to [place] to have her hiatal hernia repaired, and is unable to stay t [place] to have a DMSO instillation of her bladder. She has tentatively agreed to have this do ne once she has been to [facility]. Past Medical History She has a past [...] [facility] Respiratory Therapy Supplies [facility] Please provide patient with necessary CPAP supplies ( she did not specify, okay to send order as appropriate) Diagnosis Code(s)327.23 . Length of Need 99 months. Please send order to [facility]. 1 each 0 Respiratory Therapy Supplies [facility] Change CPAP back to 11-14 cm H2O. [...] Wt 79.379 kg (175 lb) | B KS 32.00 kg/m2 General: Awake, alert, in no [...] s he had an appointment at [facility]. Rosario is instructed to resume her usual and customary care with her primary care provide r. This document was generated in part using voice recognition software. Although I have atte mpted to edit the content, I have not thoroughly proofread this note, and sewer pipe press operator erro rs may occur. documented in [...] [place] | | | | | | [address] | | | | | | | | +--------+---------+ + + + | 11/24/ | Office | Cardiology | [place], | | | 2019 | Visit | | SINDHU Erickson [address] | | | | | | [place], | | | | | | [place] [address] | | | | | | [phone] | | | | | | | | +--------+---------+ + + + | 03/01/ | Office | Pulmonology | Mukul Clark MD | | | 2020 | Visit | | [address] | | | | | | [place] | | | | | | [address] | | | | | | | [...] ST. | [address] | [place], [place] | [phone] | | [facility] | | [address] | | | - LABORATORY | | [...] 1.001 - 1.030 | | | | [place], | | | | | | [facility], [...]
--- OUTSIDE RECORDS SUMMARY | ~2019-09-27 | XMS | Encounter Summary ---
Demographics + + + | Address | [address] | | | [place] [address] | + + + | Home Phone [...] Providers + +------+ + | Care Drying Tumbler Operator Name | Role | Phone | + +------+ + | Ozzy Delcid MD | PCP | | + +------+ + Encounter Details +--------+ + + + + | Date | Type | Department | Care Team | Description | +--------+ + + + + | 07/03/ | Hospital | [facility] | Freddy Hill | | | 2011 | Encounter | MED CTR EMERGENCY | MD AJMARI [address] | | | | | CENTER [address] | [place] | | | | | [place], [place] | [place] [address] | | | | | [address] | [phone] | | | | | [phone] | | | +--------+ + + + [...] work and actually drove herself here to [facility] for treatment. PAST MEDICAL HISTORY: Asthma, which [...] 6. Multivitamins 1 tablet oral daily. 7. Stevens-3 fish oil 1.2 grams daily. 8. Prochlorperazine [...] Freddy Hill MD Emergency Medicine JOB #: [id number] [id number] JOB #:[id number] EDITED: 07/05/2011 07:54 cc: Juan Cherry, <Electronically [...] | | | | | | [place] [address] | | | | | | [phone] | | | | | | | | +--------+---------+ + + + | 03/01/ | Office | Pulmonology | Mukul Clark MD | | | 2020 | Visit | | [address] | | | | | | [place] | | | | | | [address] | | | | | | | [...] At | + + + | [facility] Diagnostic Imaging Department | [place] | | [address] [facility] | [facility] | | PORTABLE CHEST CLINICAL [...] Transcribed Date/Time: 07/05/2011 | | | 10:46 Kier Tender: <Electronically Signed by Cesar Singh | | | MD Mikal> 07/05/11 1343 | | + + + + + | Procedure Note | + + | Reed, Rad Conversion - 04/02/2013 5:18 PM [facility] | | Diagnostic Imaging Department [address] [place] [address] | | PORTABLE CHEST CLINICAL HISTORY: SHORTNESS [...] 10:29 | |Transcribed Date/Time: 07/05/2011 10:46 | |Kier Tender: | |<Electronically Signed by Cesar Ren MD> [...]
--- OUTSIDE RECORDS SUMMARY | ~2019-09-27 | XMS | Encounter Summary ---
Demographics + + + | Address | [address] | | | [place] [address] | + + + | Home Phone [...] Providers + +------+ + | Care Beverage Distiller Name | Role | Phone | + [...] | | | | | | [place] [address] | | | | | | [phone] | | | +--------+ + + + [...] | | | | | | [place] [address] | | | | | | [phone] | | | | | | | [...]
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
--- OUTSIDE RECORDS SUMMARY | ~2019-09-27 | XMS | Encounter Summary ---
Demographics + + + | Address | [address] | | | [place] [address] | + + + | Home Phone [...] Team Providers + +------+ + | Care Ware Dresser Name | Role | Phone | [...] + + | 08/01/ | Telephone | [facility] [place] | [place], | Lab Order (due for | | 2015 | | CARDIOLOGY [address] | Georgina, DETASSELING CREW SUPERVISOR [address] | fasting labs) | | | | [place], | [place], | | | | | [place] [address] | [place] [address] | | | | | [phone] | [phone] | | | | | | | [...] [place] | | | | | | [address] | | | | | | | | +--------+---------+ + + + | 11/24/ | Office | Cardiology | [place], | | | 2019 | Visit | | SINDHU Erickson [address] | | | | | | [place], | | | | | | [place] [address] | | | | | | [phone] | | | | | | | | +--------+---------+ + + + | 03/01/ | Office | Pulmonology | Mukul Clark MD | | | 2020 | Visit | | [address] | | | | | | [place] | | | | | | [address] | | | | | | | [...]
--- OUTSIDE RECORDS SUMMARY | ~2019-09-27 | XMS | Encounter Summary ---
Demographics + + + | Address | [address] | | | [place] [address] | + + + | Home Phone [...] Team Providers + +------+ + | Care Egyptologist Name | Role | Phone | + [...] | | | | OP [address] | [place], [place] | | | | | [place], [place] | [address] | | | | | [address] | | | | | | [phone] | | | +--------+ + + + [...] THERAPY PT OP [address] [place] [address] Cancellation/No Show Date: 06/11/2016 Patient Information Patient [...] | | | | | | [place] [address] | | | | | | [phone] | | | | | | | [...]
--- OUTSIDE RECORDS SUMMARY | ~2019-09-27 | XMS | Encounter Summary ---
Demographics + + + | Address | [address] | | | [place] [address] | + + + | Home Phone [...] Team Providers + +------+ + | Care Tumbler Drier Operator Name | Role | Phone [...] + + | 10/16/ | Hospital | [facility] | [place], | Paroxysmal atrial | | 2017 | Encounter | MED CTR NUCLEAR | SINDHU Erickson [address] | tachycardia (HCC); | | | | MEDICINE [address] | [place], | Palpitations | | | | [place], | [place] [address] | | | | | [place] [address] | [phone] | | | | | [phone] | | | +--------+ + + + [...] | | | order to [facility]. | | | | | [...] encounter Procedure Notes Jared Mcdonough MD - 10/18/2016 10:51 AM PDTAssociated Order(s): HOLTER MONITOR - 48 OLAMIDE RProcedure(s): HOLTER MONITOR - 48 HOURFormatting of this note might be different from the o riginal. PATIENT NAME: Rosario Malik : 1965: AGE: 51 y.o. PRIMARY CARE: DO CAMILLE Guillaume MANAGER MANAGED CARE: Jared Mcdonough MD 48-HOUR HOLTER MONITOR REPORT DATE: 10/16/2016 IMPRESSION: 1) The predominant rhythm is sinus with HR between 44 to 157 bpm. The average HR was 72 b pm during the 47:43 hour recording. 2) There were occasional PVC's (1055 total, mean 22.1/hr) with 10 couplets and no triplet s. 3) There were occasional PAC's (1807 total, mean 37.8/hr). 4) There were 842 episodes of sinus bradycardia. The longest was 1183 beats on 0 2:44. The minimum rate was 41 bpm on 05:58. 5) There were 78 episodes of sinus tachycardia. The longest was 289 beats on 18: 15. The maximum rate was 163 bpm on 18:29. 6) Diary was not returned and no symptoms reported. Signed by: Jared Mcdonough MD [facility] 10/18/2016, 10:51 documented in this encounter Plan of Treatment [...] [place] | | | | | | [id number] | | | | | | | | +--------+---------+ + + + | 11/24/ | Office | Cardiology | Flores, | | | 2019 | Visit | | SINDHU Erickson [address] | | | | | | [place] | | | | | | [place] [address] | | | | | | [phone] | | | | | | | | +--------+---------+ + + + | 03/01/ | Office | Pulmonology | Mukul Clark MD | | | 2020 | Visit | | [address] | | | | | | [place] | | | | | | [address] | | | | | | | [...] Jared Mcdonough MD 10/18/2016 11:09 PATIENT NAME: | JUNE ALFORD | | Rosario Malik : 1965: AGE: 51 y.o. | | | PRIMARY CARE: Juan | | | DO CAMILLE Cherry MANAGER MANAGED CARE: Jared Mcdonough MD | | | 48-HOUR [...] | | Signed by: Jared Mcdonough MD [facility] 10/18/2016, | | | 10:51 | [...]
--- OUTSIDE RECORDS SUMMARY | ~2019-09-27 | XMS | Encounter Summary ---
Demographics + + + | Address | [address] | | | [place] [address] | + + + | Home Phone [...] Team Providers + +------+ + | Care Television Engineer Name | Role | Phone | [...] | | | | unspecified | | [address] | | | | | laterality | | Phone: | | | | | Primary | | [phone] | | | | | localized | | Fax: | | | | | osteoarthros | | [phone] | | | | | is of [...] | | | | | [address] | [address] [place] | | | | | [place], [place] | [place] [address] | | | | | [address] | [phone] | | | | | [phone] | | | +--------+ + + + [...] +----+---+ + + | | 1 | [place] | | | | 4 | 43-degrees [...] 1701 by | | eral | Forearm; pejz-vbz-czrnwq catheter | Teresa Yuan, | Daniela Caro [...] EVALUATION Rosario Malik 53 y.o. female 1965 [id number] Awake and alert in PACU. Block working [...] signed by Ra Cardona MD 06/18/2018 16:18 [facility] Ra Cardona MD a t [...] EVALUATION Rosario Malik 53 y.o. female 1965 [id number] Procedure(s): Right Basal Joint Arthroplasty (Right Hand) [...] [place] | | | | | | [address] | | | | | | | | +--------+---------+ + + + | 11/24/ | Office | Cardiology | [place], | | | 2019 | Visit | | SINDHU Erickson [address] | | | | | | [place], | | | | | | [place] [address] | | | | | | [phone] | | | | | | | | +--------+---------+ + + + | 03/01/ | Office | Pulmonology | Mukul Clark MD | | | 2020 | Visit | | [address] | | | | | | [place] | | | | | | [address] | | | | | | | [...]
--- OUTSIDE RECORDS SUMMARY | ~2019-09-27 | XMS | Encounter Summary ---
Demographics + + + | Address | [address] | | | [place] [address] | + + + | Home Phone [...] Team Providers + +------+ + | Care Analysis Director Name | Role | Phone | [...] + + | 08/17/ | Office | [facility] | Jared Mcdonough, | Hospital discharge | | 2015 | Visit | CARDIOLOGY [address] | [address] [facility] | follow-up (Primary | | | | [place], | [place], | Dx); Tachycardia; | | | | [place] [address] | [place] [address] | Syncope, unspecified | | | | [phone] | [phone] | syncope type | | | | [...] time, patient was seen and admitted to [facility] on because she passed out. Workups [...] be assessed by crisis team [facility], patient flat out refused to do [...] PARTNERS. 1 each 0 Respiratory Therapy Supplies THE [...] E. Patient was seen and admitted to [facility] on 07/10/13 because she pa ssed [...] months. Electronically signed by: Jared Mcdonough MD [facility] 08/17/2014 Portions of this chart may have been created with [employer] voice recognition software. Occasi onal wrong-word or [...] | | | | | | [place] [address] | | | | | | [phone] | | | | | | | | +--------+---------+ + + + | 03/01/ | Office | Pulmonology | Mukul Clark MD | | | 2020 | Visit | | [address] | | | | | | [place] | | | | | | [address] | | | | | | | [...]
--- OUTSIDE RECORDS SUMMARY | ~2019-09-27 | XMS | Encounter Summary ---
Demographics + + + | Address | [address] | | | [place] [address] | + + + | Home Phone [...] Providers + +------+ + | Care Account Support Specialist Name | Role | Phone [...] | | | | | pulmonary | [address] | [address] | | | | | disease, | [place], | [place] | | | | | unspecified | [place] [address] | [place], [place] | | | | | COPD type | Phone: | [address] | | | | | (HCC) | [phone] | Phone: | | | | | Pulmonary | Fax: | [phone] | | | | | emphysema, | [phone] | Fax: | | | | | unspecified | | [phone] | | | | | emphysema | | | | | | | type ([facility]) | | | +--------+ + + + + + Encounter Details +--------+---------+ + + + | Date | Type | Department | Care Team | Description | +--------+---------+ + + + | 05/14/ | Office | [facility] | Jared Mcdonough, | Chronic obstructive | | 2017 | Visit | MED CTR CARDIAC | [address] | pulmonary disease, | | | | REHABILITATION [address] | [place], | unspecified COPD | | | | [address] [place] | [place] [address] | type (HCC) (Primary | | | | [place] [address] | [phone] | Dx); Pulmonary | | | | [phone] | | emphysema, | | | | [...] Desean Chris - 05/14/2016 3:39 PM PDT [facility] CARDIAC REHABILITATION [address] [place] [address] Cardiac Rehab Date: 05/14/2016 Patient Information Patient [...] [place] | | | | | | [address] | | | | | | | | +--------+---------+ + + + | 11/24/ | Office | Cardiology | [place] | | | 2019 | Visit | | SINDHU Erickson [address] | | | | | | [place] | | | | | | [place] [address] | | | | | | [phone] | | | | | | | | +--------+---------+ + + + | 03/01/ | Office | Pulmonology | Mukul Clark MD | | | 2020 | Visit | | [address] | | | | | | [place] | | | | | | [address] | | | | | | | | +--------+---------+ + + + documented as of this encounter Visit Diagnoses + + | Diagnosis | + + | Chronic obstructive pulmonary disease, unspecified COPD type (HCC) - Primary | + + | Pulmonary emphysema, unspecified emphysema type (HCC) | + + documented in this encounter"
--- OUTSIDE RECORDS SUMMARY | ~2019-09-27 | XMS | Encounter Summary ---
Demographics + + + | Address | [address] | | | [place] [address] | + + + | Home Phone [...] Providers + +------+ + | Care Internal Medicine Doctor Name | Role | [...] monitoring (Primary | | | | [address] [facility], | address | Dx) | | | | [address] [place] | | | | | | [place] [address] | | | | | | [phone] | | | +--------+ + + + [...] [place] | | | | | | [address] | | | | | | | | +--------+---------+ + + + | 11/24/ | Office | Cardiology | [place], | | | 2020 | Visit | | SINDHU Erickson [address] | | | | | | [place] | | | | | | [place] [address] | | | | | | [phone] | | | | | | | | +--------+---------+ + + + | 03/01/ | Office | Pulmonology | Mukul Clark MD | | | 2020 | Visit | | [address] | | | | | | [place], [place] | | | | | | [address] | | | | | | | [...] mL/min/1.73m2 | [facility] | | | [facility] | | | MEDICAL | | | [...] + | [facility] | [address] | [place] | [phone] | | [facility] | | [address] | | | - LABORATORY | | | | + + + + + | [facility] | [address] | [place] | | | [facility] | | [address], [facility] | | | - [...] | + + + + + | [facility] | [address] | [place], [place] | [phone] | | [facility] | | [address] | | | - LABORATORY | | | | + + + + + | [facility] | [address] | [place], [place] | | | [facility] | | [address] | | | - LABORATORY | | | | + + + + + documented in this encounter Visit Diagnoses + + | Diagnosis | + + | Therapeutic drug monitoring - Primary Encounter for therapeutic drug monitoring | + + documented in this encounter"
--- OUTSIDE RECORDS SUMMARY | ~2019-09-27 | XMS | Encounter Summary ---
Demographics + + + | Address | [address] | | | [place] [address] | + + + | Home Phone [...] Providers + +------+ + | Care Fire Inspector Name | Role | Phone | [...] + + | 12/08/ | Telephone | [facility] | Jared Mcdonough, | Appointment | | 2014 | | CARDIOLOGY [address] | MD [address] | | | | | [place], | [place], | | | | | [place] [address] | [place] [address] | | | | | [phone] | [phone] | | | | | | | [...] led to 01-12-15. elephone Encounter - Radha lOvera - 12/08/2014 12:22 PM PDTPatient was a [...] [place] | | | | | | [address] | | | | | | | | +--------+---------+ + + + | 11/24/ | Office | Cardiology | [place], | | | 2019 | Visit | | SINDHU Erickson [address] | | | | | | [place] | | | | | | [place] [address] | | | | | | [phone] | | | | | | | [...]
--- OUTSIDE RECORDS SUMMARY | ~2019-09-27 | XMS | Encounter Summary ---
Demographics + + + | Address | [address] | | | [place] [address] | + + + | Home Phone [...] | 09/04/ | Off-Site | [facility] | [place], | Paroxysmal atrial | | 2016 | Visit | CARDIOLOGY [address] | SINDHU Erickson [address] | tachycardia (HCC) | | | | [place], | [place], | (Primary Dx); Chest | | | | [place] [address] | [place] [address] | pain, unspecified | | | | [phone] | [phone] | type | | | | | [...] takes this da rigoberto Respiratory Therapy Supplies [facility] Please provide patient with necessary CPAP supplies ( she did not specify, okay to send order as appropriate) Diagnosis Code(s)327.23 . Length of Need 99 months. Please send order to [facility]. 1 each 0 Respiratory Therapy Supplies [facility] [...] RESULTS reviewed during visit today primarily from [facility]: LIPID No results found for: CHOL, [...] She was seen at the ED of [facility] 3 weeks ago and again 1 [...] She is in a class II of [place] [employer] Association functional class. There is n [...] and ventricular function don e at the [facility]. LVEF 78%. C. Holter Monitor 08/16/13 [...] this chart may have been created with [employer] voice recognition software. Occasi onal wrong-word or [...] [place] | | | | | | [address] | | | | | | | | +--------+---------+ + + + | 11/24/ | Office | Cardiology | [place], | | | 2019 | Visit | | SINDHU Erickson [address] | | | | | | [place], | | | | | | [place] [address] | | | | | | [phone] | | | | | | | | +--------+---------+ + + + | 03/01/ | Office | Pulmonology | Mukul Clark MD | | | 2020 | Visit | | [address] | | | | | | [place] | | | | | | [address] | | | | | | | [...]
--- OUTSIDE RECORDS SUMMARY | ~2019-09-27 | XMS | Encounter Summary ---
Demographics + + + | Address | [address] | | | [place] [address] | + + + | Home Phone [...] Team Providers + +------+ + | Care Wool Broker Name | Role | Phone | + +------+ + | Juan Cherry DO | PCP | | + +------+ + Encounter Details +--------+---------+ + + + | Date | Type | Department | Care Team | Description | +--------+---------+ + + + | 10/31/ | Office | [facility] | Andriy Weber | Interstitial | | 2016 | Visit | [address] | MD [address] | cystitis (Primary | | | | [place], [place] | [address] [place] | Dx) | | | | [address] | [place] [address] | | | | | [phone] | [phone] | | | | | | | [...] have not thoroughly proofread this note, and supervisor electrolytic tinning err ors may occur. documented in th [...] [place] | | | | | | [address] | | | | | | | | +--------+---------+ + + + | 11/24/ | Office | Cardiology | [place], | | | 2019 | Visit | | SINDHU Erickson [address] | | | | | | [place] | | | | | | [place] [address] | | | | | | [phone] | | | | | | | | +--------+---------+ + + + | 03/01/ | Office | Pulmonology | Mukul Clark MD | | | 2020 | Visit | | [address] | | | | | | [place] | | | | | | [id number] | | | | | | | | +--------+---------+ + + + documented as of this encounter Visit Diagnoses + + | Diagnosis | + + | Interstitial cystitis - Primary Chronic interstitial cystitis | + + documented in this encounter"
--- OUTSIDE RECORDS SUMMARY | ~2019-09-27 | XMS | Encounter Summary ---
Demographics + + + | Address | [address] | | | [place] [address] | + + + | Home Phone [...] Team Providers + +------+ + | Care Under Baster Name | Role | Phone | [...] [address] | | | | | [place], | [place], | | | | | [place] [address] | [place] [address] | | | | | [phone] | [phone] | | | | | | | [...] | | | | | | [place] [address] | | | | | | [phone] | | | | | | | | +--------+---------+ + + + | 03/01/ | Office | Pulmonology | Mukul Clark MD | | | 2020 | Visit | | [address] | | | | | | [place] | | | | | | [address] | | | | | | | [...]
--- OUTSIDE RECORDS SUMMARY | ~2019-09-27 | XMS | Encounter Summary ---
Demographics + + + | Address | [address] | | | [place] [address] | + + + | Home Phone [...] Team Providers + +------+ + | Care Horticulture Supervisor Name | Role | Phone | [...] Provider Unknown | | | | | [place], [place] | [phone] | | | | | [address] | | | | | | [phone] | | | +--------+ + + + [...] | | | | order to [facility]. | | | | | [...] [place] | | | | | | [address] | | | | | | | | +--------+---------+ + + + | 11/24/ | Office | Cardiology | [place], | | | 2019 | Visit | | SINDHU Erickson [address] | | | | | | [place] | | | | | | [place] [address] | | | | | | [phone] | | | | | | | | +--------+---------+ + + + | 03/01/ | Office | Pulmonology | Mukul Clark MD | | | 2020 | Visit | | [address] | | | | | | [place] | | | | | | [address] | | | | | | | [...]
--- OUTSIDE RECORDS SUMMARY | ~2019-09-27 | XMS | Encounter Summary ---
Demographics + + + | Address | [address] | | | [place] [address] | + + + | Home Phone [...] Team Providers + +------+ + | Care Action Finisher Name | Role | Phone | [...] [address] | | | | | [place], | [place], [place] | | | | | [place] [address] | [address] | | | | | [phone] | | | +--------+--------+ + + + [...] [place] | | | | | | [address] | | | | | | | | +--------+---------+ + + + | 11/24/ | Office | Cardiology | [place], | | | 2019 | Visit | | SINDHU Erickson [address] | | | | | | [place], | | | | | | [place] [address] | | | | | | [phone] | | | | | | | [...]
--- OUTSIDE RECORDS SUMMARY | ~2019-09-27 | XMS | Encounter Summary ---
Demographics + + + | Address | [address] | | | [place] [address] | + + + | Home Phone [...] Providers + +------+ + | Care Skid Road Man Name | Role | Phone | [...] + | 08/28/ | Documentati | [facility] | Kathi Soto, | No Show | | 2017 | on | MED CTR SPEECH | Speech Pathologist | | | | | THERAPY [address] | | | | | | [place], | | | | | | [place] [address] | | | | | | [phone] | | | +--------+ + + + [...] Progress Notes Kathi Soto Speech Pathologist - 08/28/2016 10:[facility] [address] [place] [address] Cancellation/No Show Date: 08/28/2016 Patient Information Patient [...] 08/28/2016 10:24 Patient Name: Rosario Malik/: 1965/ docum ented [...] [place] | | | | | | [address] | | | | | | | | +--------+---------+ + + + | 11/24/ | Office | Cardiology | [place], | | | 2019 | Visit | | SINDHU Erickson [address] | | | | | | [place], | | | | | | [place] [address] | | | | | | [phone] | | | | | | | [...]
--- OUTSIDE RECORDS SUMMARY | ~2019-09-27 | XMS | Encounter Summary ---
Demographics + + + | Address | [address] | | | [place] [address] | + + + | Home Phone [...] Providers + +------+ + | Care Grocery Store Manager Name | Role | Phone | [...] + + | 08/17/ | Office | [facility] | Jared Mcdonough, | Hospital discharge | | 2015 | Visit | CARDIOLOGY [address] | [address] [facility] | follow-up (Primary | | | | [place], | [place], | Dx); Tachycardia; | | | | [place] [address] | [place] [address] | Syncope, unspecified | | | | [phone] | [phone] | syncope type | | | | [...] time, patient was seen and admitted to [facility] on because she passed out. Workups are [...] be assessed by crisis team in [facility] room, patient flat out refused to do [...] day. 15 tablet 3 Respiratory Therapy Supplies [facility] Please provide patient with necessary CPAP supplies ( she did not specify, okay to send order as appropriate) Diagnosis Code(s)327.23 . Length of Need 99 months. Please send order to [facility]. 1 each 0 Respiratory Therapy Supplies [facility] [...] E. Patient was seen and admitted to [facility] on 07/10/13 because she pa ssed out. [...] months. Electronically signed by: Jared Mcdonough MD [facility] 08/17/2014 Portions of this chart may have been created with [employer] voice recognition software. Occasi onal wrong-word or [...] W | | | | | | [place] | | | | | | [place] [address] | | | | | | [phone] | | | | | | | | +--------+---------+ + + + | 03/01/ | Office | Pulmonology | Mukul Clark MD | | | 2020 | Visit | | [address] | | | | | | [place] | | | | | | [address] | | | | | | | [...]
--- OUTSIDE RECORDS SUMMARY | ~2019-09-27 | XMS | Encounter Summary ---
Demographics + + + | Address | [address] | | | [place] [address] | + + + | Home Phone [...] Providers + +------+ + | Care Hr Internship Name | Role | Phone | [...] | obstruction, not | | | | [place], | | elsewhere classified | | | | [place] [address] | | ([facility]) | | | | [phone] | | | +--------+ + + + [...] | | | | | | [place] [address] | | | | | | [phone] | | | | | | | | +--------+---------+ + + + | 01/06/ | Office | Pulmonology | Mukul Clark MD | | | 2020 | Visit | | [address] | | | | | | [place] | | | | | | [address] | | | | | | | | +--------+---------+ + + + documented as of this encounter Visit Diagnoses + + | Diagnosis | + + | Chronic airway obstruction, not elsewhere classified | + + documented in this encounter"
--- OUTSIDE RECORDS SUMMARY | ~2019-09-27 | XMS | Encounter Summary ---
Demographics + + + | Address | [address] | | | [place] [address] | + + + | Home Phone [...] Team Providers + +------+ + | Care Phlebotomist Supervisor/Instructor Name | Role | Phone | + [...] + + | 11/12/ | Office | [facility] | [place], | Chest pain, | | 2018 | Visit | CARDIOLOGY [address] | SINDHU Erickson [address] | unspecified type | | | | [place], | [place], | (Primary Dx); | | | | [place] [address] | [place] [address] | Palpitations; | | | | [phone] | [phone] | Paroxysmal atrial | | | | [...] follow up in 6 to 8 wee ks for office visit, or sooner with concerns. [...] takes this da rigoberto Respiratory Therapy Supplies [facility] Please provide patient with necessary CPAP supplies ( she did not specify, okay to send order as appropriate) Diagnosis Code(s)327.23 . Length of Need 99 months. Please send order to [facility]. 1 each 0 Respiratory Therapy Supplies [place] [...] injection 10 mEq 10 mL Other Weekly Gene Yinka Tsang D 10 mEq at 07/24/17 1058 triamcinolone [...] RESULTS reviewed during visit today primarily from [facility]: LIPID Lab Results Component Value [...] She is in class II of the [place] [employer] Association funct ional class. There are [...] this chart may have been created with [employer] voice recognition software. Occasi onal wrong-word or sound-alike substitutions may have occurred due to the inherent cárdenas itations of voice recognition software. Please read the chart carefully and recognize, using context, where these substitutions have occurred. documented in th is encounter Miscellaneous Notes Addendum Note - Beronica Vera RN - 11/12/2017 7:45 AM PDT Addended by: SHARON VERA on: 11/12/2017 11:16 Modules accepted: Orders documented in t his encounter Plan of [...] | 2019 | Visit | | Georgina, BUS BOY [address] | | | | | | [place], | | | | | | [place] [address] | | | | | | [phone] | | | | | | | | +--------+---------+ + + + | 03/01/ | Office | Pulmonology | Mukul Clark MD | | | 2020 | Visit | | [address] | | | | | | [place] | | | | | | [address] | | | | | | | [...] | | | | [place], RAFA ([id number]) | | | | | | on [...]
--- OUTSIDE RECORDS SUMMARY | ~2019-09-27 | XMS | Encounter Summary ---
Demographics + + + | Address | [address] | | | [place] [address] | + + + | Home Phone [...] Team Providers + +------+ + | Care Gis Analyst Developer Name | Role | Phone | [...] CARDIOLOGY [address] | MD [address] [place] | Dx) | | | | [place], | [place], | | | | | [place] [address] | [place] [address] | | | | | [phone] | [phone] | | | | | | | [...] | | | | | | [place] [address] | | | | | | [phone] | | | | | | | | +--------+---------+ + + + | 03/01/ | Office | Pulmonology | Mukul Clark MD | | | 2020 | Visit | | [address] | | | | | | [place] | | | | | | [address] | | | | | | | | +--------+---------+ + + + documented as of this encounter Visit Diagnoses + + | Diagnosis | + + | Tachycardia - Primary Tachycardia, unspecified | + + documented in this encounter
--- OUTSIDE RECORDS SUMMARY | ~2019-09-27 | XMS | Encounter Summary ---
Demographics + + + | Address | [address] | | | [place] [address] | + + + | Home Phone [...] Providers + +------+ + | Care Financial Planning Analyst Name | Role | Phone | [...] sleep | MD [address] | | | | | apnea) | [address] | [place], | | | | | Central | [place], | [place] [address] | | | | | sleep apnea | [place] [address] | Phone: | | | | | | | [phone] | | | | | | | Fax: | | | | | | | [phone] | +--------+ + + + + + Encounter Details +--------+---------+ + + + | Date | Type | Department | Care Team | Description | +--------+---------+ + + + | 04/07/ | Office | [facility] | Maxim Delgado PA | GARRY on CPAP (Primary | | 2012 | Visit | SLEEP DISORDER [address] | [address] | Dx); Organic | | | | [address] [place] | [place], [place] | insomnia, | | | | [place] [address] | [address] | unspecified | | | | [phone] | | | +--------+---------+ + + + [...] S9 with full face mask obtained from: [facility] pressure is: 8-12 cm 95%: 11.9 [...] She went to get that mask from [facility], but it has been discontinued. The [...] months, sooner prn. Fifteen minutes were spent [id number], wi th the majority of time spent [...] [place] | | | | | | [address] | | | | | | | | +--------+---------+ + + + | 11/24/ | Office | Cardiology | [place], | | | 2019 | Visit | | SINDHU Erickson [address] | | | | | | [place], | | | | | | [place] [address] | | | | | | [phone] | | | | | | | | +--------+---------+ + + + | 03/01/ | Office | Pulmonology | Mukul Clark MD | | | 2020 | Visit | | [address] | | | | | | [place] | | | | | | [address] | | | | | | | | +--------+---------+ + + + documented as of this encounter Visit Diagnoses + + | Diagnosis | + + | GARRY on CPAP - Primary Obstructive sleep apnea (adult) (pediatric) | + + | Organic insomnia, unspecified | + + documented in this encounter"
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
--- OUTSIDE RECORDS SUMMARY | ~2019-09-27 | XMS | Encounter Summary ---
Demographics + + + | Address | [address] | | | [place] [address] | + + + | Home Phone [...] Team Providers + +------+ + | Care Adhesive Bandage Machine Operator Name | Role | Phone [...] [address] | | | | | [place], | [place], | | | | | [place] [address] | [place] [address] | | | | | [phone] | [phone] | | | | | | | [...] | | | | | | [place] [address] | | | | | | [phone] | | | | | | | [...]
--- OUTSIDE RECORDS SUMMARY | ~2019-09-27 | XMS | Encounter Summary ---
Demographics + + + | Address | [address] | | | [place] [address] | + + + | Home Phone [...] Team Providers + +------+ + | Care Automatic Buffer Name | Role | Phone | + +------+ + PCP | Unavailable | + +------+ + Encounter Details +--------+ + + + + | Date | Type | Department | Care Team | Description | +--------+ + + + + | 12/19/ | [facility] | [facility] | | | | 2009 | Encounter | MED CTR LABORATORY | | | | | | [address] | | | | | | [place] | | | | | | [address] | | | | | | [phone] | | | +--------+ + + + [...] | | | | | | [place] [address] | | | | | | [phone] | | | | | | | | +--------+---------+ + + + | 03/01/ | Office | Pulmonology | Mukul Clark MD | | | 2020 | Visit | | [address] | | | | | | [place] | | | | | | [address] | | | | | | | | +--------+---------+ + + + documented as of this encounter Visit Diagnoses Not on filedocumented in this encounter"
--- OUTSIDE RECORDS SUMMARY | ~2019-09-27 | XMS | Encounter Summary ---
Demographics + + + | Address | [address] | | | [place] [address] | + + + | Home Phone [...] Providers + +------+ + | Care Wood Tool Maker Name | Role | Phone | [...] Tachycardia | MD Jared | [address] | | | | | Procedures | [address] | [place], | | | | | ECHO | [address] | [place] | | | | | Complete | [place], | [address] | | | | | | [place] [address] | Phone: | | | | | | Phone: | [phone] | | | | | | [phone] | Fax: | | | | | | Fax: | [phone] | | | | | | [phone] | | +--------+--------+ + + + + [...] | | unspecified | [place] | [address] | | | | | HIGH PULSE | [place], [place] | [place], | | | | | - 2ND DX | [address] | [place] [address] | | | | | Procedures | Phone: | Phone: | | | | | [place] OFFICE | [phone] | [phone] | | | | | OUTPATIENT | Fax: | Fax: | | | | | VISIT 25 | [phone] | [phone] | | | | | MINUTES | [...] CARDIOLOGY [address] | MD [address] | Dx) | | | | [address] [place], | [place], | | | | | [place] [address] | [place] [address] | | | | | [phone] | | | | | | | [...] tachycardia. 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 [...] She is in a class II of [place] Heart Association functiona l class. There is [...] made to ensure accuracy; however, inadvertent computerized clinical data coordinator errors may be pre sent. Electronically signed by: Jared Mcdonough MD [facility] 08/12/2013 9:31 documented in this encounter Procedure [...] | | | | | | [place] [address] | | | | | | [phone] | | | | | | | | +--------+---------+ + + + | 03/01/ | Office | Pulmonology | Mukul Clark MD | | | 2020 | Visit | | [address] | | | | | | [place] | | | | | | [address] | | | | | | | [...]
--- OUTSIDE RECORDS SUMMARY | ~2019-09-27 | XMS | Encounter Summary ---
Demographics + + + | Address | [address] | | | [place] [address] | + + + | Home Phone [...] Providers + +------+ + | Care Acid Concentrator Name | Role | Phone | + [...] [place] | | | | | [address] | [place] [address] | | | | | [phone] | [phone] | | | | | | | [...] DR PATEL. UA WAS DONE AT THE [facility]. Electronically si gned by Korin Holly at 06/11/2017 11:35 AM PDTTelephone Encounter - Marlen Boyce, Principal Architectural Firm - 06/11/2017 11:23 AM PDTCalled Patient. No answer. Left message to ca ll back. elephone Encounter - Korin Holly - 06/11/2017 8:42 AM PDTPATIENT CALLED IN DU E TO AN APPT FOR TOMORROW ([facility]) BUT SHE HAS A UTI DIAGNOSED BY HER DOCTOR AND WILL START AN TI BIOTICS TODAY. SHOULD PATIENT STILL COME IN? PLEASE ADVISE [phone].Electronically si gned by Korin Holly at 06/11/2017 [...] [place] | | | | | | [address] | | | | | | | | +--------+---------+ + + + | 11/24/ | Office | Cardiology | [place], | | | 2019 | Visit | | SINDHU Erickson [address] | | | | | | [place], | | | | | | [place] [address] | | | | | | [phone] | | | | | | | | +--------+---------+ + + + | 03/01/ | Office | Pulmonology | Mukul Clark MD | | | 2020 | Visit | | [address] | | | | | | [place] | | | | | | [address] | | | | | | | | +--------+---------+ + + + documented as of this encounter Visit Diagnoses Not on filedocumented in this encounter"
--- OUTSIDE RECORDS SUMMARY | ~2019-09-27 | XMS | Encounter Summary ---
Demographics + + + | Address | [address] | | | [place] [address] | + + + | Home Phone [...] Providers + +------+ + | Care Electric Bath Attendant Name | Role | Phone | [...] + + | 05/23/ | Emergency | [facility] | Herib[place], | COPD with acute | | 2013 | | MED CTR EMERGENCY | Ozzy Kim MD [address] | exacerbation (HCC) | | | | [place] [address] | [place] | (Primary Dx); COPD | | | | [place], [place] | [place] [address] | exacerbation (HCC) | | | | [address] | [phone] | | | | | [phone] | | | +--------+ + + + [...] days. | | | | | | (PRISMA [...] duct (pouch) (HCC) 10/28/2012 Overview: Managed by [facility] along with hypothyroidism SURGICAL HISTORY Past Surgical History Procedure Date Hammertoe repair Hiatal hernia repair Hiatal hernia Kirk and bso Ovarian cysts, not cancer Colonoscopy 03/[address] [facility] CURRENT MEDICATIONS Previous Medications ADVAIR DISKUS [...] as needed for Pain. RESPIRATORY THERAPY SUPPLIES [facility] Change CPAP back to 11-14 cm H2O. All necessary suppl ies. No oxygen bleed in. Diagnosis Code(s)327.23. Length of Need: Lifetime. Please send orde r to [facility]. This is not a new order, just a change in settings. RESPIRATORY THERAPY SUPPLIES [facility] Please provide patient with necessary CPAP supplies ( she did not specify, okay to send order as appropriate) Diagnosis Code(s)327.23 . Length of Need 99 months. Please send order to [facility]. RESPIRATORY THERAPY SUPPLIES [facility] Incentive spirometer. Please provide instructions in use. 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 Social History Main Topics Smoking status: [...] records were reviewed EMS Note reviewed: N/A Shelter records reviewed: N/A The patient received a [...] Notes Plan of Care - ONBASE SCAN WAME - 06/02/2013 12:00 AM PDT D Triage [...] [place] | | | | | | [address] | | | | | | | | +--------+---------+ + + + | 11/24/ | Office | Cardiology | [place], | | | 2019 | Visit | | SINDHU Erickson [address] | | | | | | [place] | | | | | | [place] [address] | | | | | | [phone] | | | | | | | | +--------+---------+ + + + | 03/01/ | Office | Pulmonology | Mukul Clark MD | | | 2020 | Visit | | [address] | | | | | | [place] | | | | | | [id number] | | | | | | | [...] + | MISCELLANEOUS LAB | | | [phone] | + +---------+ + + | MISCELANIOUS LAB | | | [phone] | + +---------+ + + documented in [...]
--- OUTSIDE RECORDS SUMMARY | ~2019-09-27 | XMS | Encounter Summary ---
Demographics + + + | Address | [address] | | | [place] [address] | + + + | Home Phone [...] Providers + +------+ + | Care Senior Solutions Workflow Consultant Name | Role | Phone | + +------+ + PCP | Unavailable | + +------+ + Encounter Details +--------+ + + + + | Date | Type | Department | Care Team | Description | +--------+ + + + + | 10/18/ | [facility] | [facility] | | | | 2008 - | Encounter | MED CTR OP REHAB | | | | | | [address] | | | | 10/24/ | | [place] [address] | | | | 2008 | | [phone] | | | +--------+ + + + [...] | | | | | | [place] [address] | | | | | | [phone] | | | | | | | | +--------+---------+ + + + | 03/01/ | Office | Pulmonology | Mukul Clark MD | | | 2020 | Visit | | [address] | | | | | | [place] | | | | | | [address] | | | | | | | | +--------+---------+ + + + documented as of this encounter Visit Diagnoses Not on filedocumented in this encounter"
--- OUTSIDE RECORDS SUMMARY | ~2019-09-27 | XMS | Encounter Summary ---
Demographics + + + | Address | [address] | | | [place] [address] | + + + | Home Phone [...] Team Providers + +------+ + | Care Aviation Survival Technician Name | Role | Phone | [...] + | 09/04/ | Off-Site | [facility] | [place], | Paroxysmal atrial | | 2016 | Visit | CARDIOLOGY [address] | SINDHU Erickson [address] | tachycardia (HCC) | | | | [place], | [place], | (Primary Dx); Chest | | | | [place] [address] | [place] [address] | pain, unspecified | | | | [phone] | [phone] | type | | | | | [...] this da rigoberto Respiratory Therapy Supplies [facility] [...] RESULTS reviewed during visit today primarily from [facility]: LIPID No results found for: CHOL, [...] She was seen at the ED of [facility] 3 weeks ago and again [...] She is in a class II of [place] Heart Association functional class. There is n [...] and ventricular function don e at the [facility]. LVEF 78%. C. Holter Monitor [...] this chart may have been created with [employer] voice recognition software. Occasi onal wrong-word or [...] [place] | | | | | | [address] | | | | | | | | +--------+---------+ + + + | 11/24/ | Office | Cardiology | [place], | | | 2019 | Visit | | SINDHU Erickson [address] | | | | | | [place], | | | | | | [place] [address] | | | | | | [phone] | | | | | | | | +--------+---------+ + + + | 03/01/ | Office | Pulmonology | Mukul Clark MD | | | 2020 | Visit | | [address] | | | | | | [place] | | | | | | [address] | | | | | | | [...]
--- OUTSIDE RECORDS SUMMARY | ~2019-09-27 | XMS | Encounter Summary ---
Demographics + + + | Address | [address] | | | [place] [address] | + + + | Home Phone [...] Providers + +------+ + | Care Tree Trimming Supervisor Name | Role | Phone | [...] monitoring (Primary | | | | [address] [facility], | address | Dx) | | | | [address] [place] | | | | | | [place] [address] | | | | | | [phone] | | | +--------+ + + + [...] [place] | | | | | | [address] | | | | | | | | +--------+---------+ + + + | 11/24/ | Office | Cardiology | [place], | | | 2020 | Visit | | SINDHU Erickson [address] | | | | | | [place] | | | | | | [place] [address] | | | | | | [phone] | | | | | | | | +--------+---------+ + + + | 03/01/ | Office | Pulmonology | Mukul Clark MD | | | 2020 | Visit | | [address] | | | | | | [place], [place] | | | | | | [address] | | | | | | | [...] mL/min/1.73m2 | [facility] | | | [place] | | | MEDICAL | | | [...] + | [facility] | [address] | [place] | [phone] | | [facility] | | [address] | | | - LABORATORY | | | | + + + + + | [facility] | [address] | [place] | | | [facility] | | [address], [facility] | | | - [...] | + + + + + | [facility] [facility] | [address] | [place], [place] | [phone] | | [facility] | | [address] | | | - LABORATORY | | | | + + + + + | [facility] | [address] | [place], [place] | | | [facility] | | [address] | | | - LABORATORY | | | | + + + + + documented in this encounter Visit Diagnoses + + | Diagnosis | + + | Therapeutic drug monitoring - Primary Encounter for therapeutic drug monitoring | + + documented in this encounter"
--- OUTSIDE RECORDS SUMMARY | ~2019-09-27 | XMS | Encounter Summary ---
Demographics + + + | Address | [address] | | | [place] [address] | + + + | Home Phone [...] + + | 08/06/ | Hospital | [facility] | Conversion | Unknown cause of | | 2017 | Encounter | CONVERSION DEP [address] | Transaction, | injury, initial | | | | [address] | Provider Unknown | encounter | | | | [place] | [phone] | | | | | [address] | | | | | | [phone] | | | +--------+ + + + [...] | | | | | order to [facility]. | | | | [...] | | | | | ([facility]) | | | | | | [...] [place] | | | | | | [address] | | | | | | | | +--------+---------+ + + + | 11/24/ | Office | Cardiology | [place], | | | 2019 | Visit | | SINDHU Erickson [address] | | | | | | [place] | | | | | | [place] [address] | | | | | | [phone] | | | | | | | | +--------+---------+ + + + | 03/01/ | Office | Pulmonology | Mukul Clark MD | | | 2020 | Visit | | [address] | | | | | | [place] | | | | | | [address] | | | | | | | [...]
--- OUTSIDE RECORDS SUMMARY | ~2019-09-27 | XMS | Encounter Summary ---
Demographics + + + | Address | [address] | | | [place] [address] | + + + | Home Phone [...] Team Providers + +------+ + | Care Correction Officer Penitentiary Name | Role | Phone | + [...] on | MED CTR THERAPY PT | FOURDRINIER MACHINE OPERATOR [address] | | | | | OP [address] | [place], [place] | | | | | [place], [place] | [address] | | | | | [address] | [phone] | | | | | [phone] | | | +--------+ + + + [...] Low PTA - 05/25/2013 9:34 AM [facility] OP [address] [place] [address] Cancellation/No Show Date: 05/25/2013 Patient Information Patient [...] | | | | | | [place] [address] | | | | | | [phone] | | | | | | | [...]
--- OUTSIDE RECORDS SUMMARY | ~2019-09-27 | XMS | Encounter Summary ---
Demographics + + + | Address | [address] | | | [place] [address] | + + + | Home Phone [...] Team Providers + +------+ + | Care Trade Recruiter Name | Role | Phone | [...] + | 05/31/ | Telephone | [facility] | Kade Hoffman MD | Follow-up ( appt | | 2013 | | CARE [address] | [address] | for COPD | | | | [place] | [place] [address] | exacerbation ) | | | | [address] | [phone] | | | | | [phone] | | | +--------+ + + + [...] appt for COPD. 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
--- OUTSIDE RECORDS SUMMARY | ~2019-09-27 | XMS | Encounter Summary ---
Demographics + + + | Address | [address] | | | [place] [address] | + + + | Home Phone [...] Team Providers + +------+ + | Care Morning Nanny Name | Role | Phone | + [...] | Specialty | Physical | Diagnoses | [place], | [facility] | | | Services | Therapy | | Grant Maynard MD | Pt Acute | | | Required | | Fibromyalgia | [address] | [address] | | | | | | [address] [place] | [place], | | | | | | [place], [place] | [place] | | | | | | [address] | [address] | | | | | | Phone: | Phone: | | | | | | [phone] | [phone] | | | | | | Fax: | Fax: | | | | | | [phone] | [phone] | +--------+ + + + + + Reason for Visit + + + | Reason | Comments | + + + | New Patient | Establish care | + + + Encounter Details +--------+---------+ + + + | Date | Type | Department | Care Team | Description | +--------+---------+ + + + | 03/02/ | Office | [facility] | Grant Castle, | ORGANIC INSOMNIA | | 2013 | Visit | MEDICINE GIANA[place] | [address] | UNSPECIFIED (Primary | | | | [address] | [place] | Dx); Primary | | | | [place] | [address] | central sleep apnea; | | | | [address] | | Tobacco user; | | | | [phone] | | Posttraumatic stress | | | [...] your behavior and peer support. Call the [facility] Quitline for more information. 036-RGHS-IBS ([phone]). Low-cost or free programs are offered by many hospitals, local chapters of the [place] [employer] (678-625-1408) a nd the [place] [employer] ([phone]). Support at home is important too. Non-smokers can help by offering praise and encouragement. If the smoker fails to quit, encourage them to try again! UVIO-PKB-TQOSALD MEDICINES: For those who can't quit on [...] such as bupropion (Zyban, Wellbutrin), varenicline (Chantix, Terrebonne ix), a niocotine inhaler or nasal spray. [...] smoking, visit the following links: National Cancer [place] , Clearing the Air, Quit Smoking Today - an online tejada klet. http://www.smokefree.gov/pubs/clearing_the_air.pdf Smokefree.gov http://smokefree.gov/ QuitNet http://www.quitnet.com/ 7916-6627 Rafael Perez, [address] [place] [address], [place] [address]. All rights reserve d. This information is [...] to relax by reading or listening to WiWide music. 7. Limit daytime napping to one [...] there) Anxiety, depression Several days without sleeping [phone] Rafael Perez, [address] [place] [address], [place] [address]. All rights reserve d. This information is [...] lunesta, ambien without success at staying asleep. Shawn lacey wakes up 2-4 hours after falling asleep [...] and 11:30-11:45 on nights she does wor [employer]. 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 She [...] She has had to be admitted to [facility] and [facility] due to suicidal ideation by overdose. Sh e did attempt suicide once, can't recall the medicine. This was in 1986 and 1988. No thoug hts of SI or HI in years. She has hypothryroidism managed by [facility]. She sees [facility] due to possible [place] and possi quentin adrenal insufficiency. She has fibromyalgia treated with cymbalta and tramadol. Tried PT years ago. Can't afford [facility] membership. Patient's medications, allergies, past medical, surgical, [...] [place] | | | | | | [address] | | | | | | | | +--------+---------+ + + + | 11/24/ | Office | Cardiology | [place], | | | 2019 | Visit | | SINDHU Erickson [address] | | | | | | [place], | | | | | | [place] [address] | | | | | | [phone] | | | | | | | | +--------+---------+ + + + | 03/01/ | Office | Pulmonology | Mukul Clark MD | | | 2020 | Visit | | [address] | | | | | | [place] | | | | | | [address] | | | | | | | [...]
--- OUTSIDE RECORDS SUMMARY | ~2019-09-27 | XMS | Encounter Summary ---
Demographics + + + | Address | [address] | | | [place] [address] | + + + | Home Phone [...] Providers + +------+ + | Care Chart Calculator Name | Role | Phone | + [...] | | | | | [place] [address] | [address] | | | | | [phone] | | | +--------+ + + + [...] Miscellaneous Notes Telephone Encounter - Tana Luz Asphalt Spreader - 07/24/2018 9:58 AM PDTPatient call ed this morning stating she is still falling asleep during the day and when driving 1,2,3 [place]. States she ends up falling asleep for 1.5-2.5 hours during the day, involuntarily. Carla may is using machine. Would like some advise on what to do. Phone number to call patient patric ack to is [phone] signed by Kevin Rivera Assistant at 07/24/2018 [...] [place] | | | | | | [id number] | | | | | | | | +--------+---------+ + + + | 11/24/ | Office | Cardiology | Flores, | | | 2019 | Visit | | SINDHU Erickson [address] | | | | | | [place], | | | | | | [place] [address] | | | | | | [phone] | | | | | | | [...]
--- OUTSIDE RECORDS SUMMARY | ~2019-09-27 | XMS | Encounter Summary ---
Demographics + + + | Address | [address] | | | [place] [address] | + + + | Home Phone [...] (Primary Dx); Place | | | | [address] | updated address | of occurrence, | | | [address] [place] | | industrial places | | | | [place] | | and premises | | | | [address] | | | | | | [phone] | | | +--------+---------+ + + + [...] MD - 04/14/2013 11:10 AM PSTSee dictation [id number] lisha d by Brian Miranda MD at 04/14/2013 11:11 AM Brian Avendano MD - 04/14/19 14 12:[address] [facility] OCCUPATIONAL MEDICINE [address] [place] [address] FAX: [phone] OFFICE VISIT Claim Number: [id number] Date of Injury: 04/05/2013 Employer: [employer] [...] Ozzy Miranda MD / AF JOB #: [id number] signed by Brian Miranda MD at 04/15/2013 5:32 PM PSTd ocumented in this encounter Miscellaneous Notes Plan of Care - [facility] - 04/15/2013 12:00 AM PST lan of Care - [facility] - 04/14/2013 12:00 AM PSTElect ronically signed [...] | | | | | | [place] [address] | | | | | | [phone] | | | | | | | | +--------+---------+ + + + | 03/01/ | Office | Pulmonology | Mukul Clark MD | | | 2020 | Visit | | [address] | | | | | | [place] | | | | | | [phone] | | | | | | | [...]
--- OUTSIDE RECORDS SUMMARY | ~2019-09-27 | XMS | Encounter Summary ---
Demographics + + + | Address | [address] | | | [place] [address] | + + + | Home Phone [...] Providers + +------+ + | Care Field Contractor Name | Role | Phone | + +------+ + | Juan Cherry DO | PCP | | + +------+ + Encounter Details +--------+ + + + + | Date | Type | Department | Care Team | Description | +--------+ + + + + | 04/12/ | Hospital | [facility] | Offenstein, | COPD exacerbation | | 2013 | Encounter | MED CTR GENERIC OP | Loreta Alonso MD | ([facility]) | | | | CONV DEPT [address] | | | | | | [place], | | | | | | [place] [address] | | | | | | [phone] | | | +--------+ + + + [...] [place] | | | | | | [address] | | | | | | | | +--------+---------+ + + + | 11/24/ | Office | Cardiology | Flores, | | | 2019 | Visit | | SINDHU Erickson [address] | | | | | | [place], | | | | | | [place] [address] | | | | | | [phone] | | | | | | | | +--------+---------+ + + + | 03/01/ | Office | Pulmonology | Mukul Clark MD | | | 2020 | Visit | | [address] | | | | | | [place] | | | | | | [address] | | | | | | | [...] + | [facility] | [address] | [place] | [phone] | | [facility] | | [address] | | | - LABORATORY | | | | + + + + + | [address] | [address] | [place], [place] | | | [facility] | | [id number] [place] [address] | | | - LABORATORY | | [...] 3.6 | 3.2 - 5.0 gm/dL | JOIEE | | | | | [...] [address] | [place] | [phone] | | [facility] | | [address] | | | - LABORATORY | | | | + + + + + | [address] | [address] | [place], [place] | | | [facility] | | [address], [facility] | | | - LABORATORY | | | | + + + + + documented in this encounter Visit Diagnoses + + | Diagnosis | + + | COPD exacerbation (HCC) Obstructive chronic bronchitis with exacerbation | + + documented in this encounter"
--- OUTSIDE RECORDS SUMMARY | ~2019-09-27 | XMS | Encounter Summary ---
Demographics + + + | Address | [address] | | | [place] [address] | + + + | Home Phone [...] Team Providers + +------+ + | Care Biometry Teacher Name | Role | Phone | [...] | 06/25/ | Clinical | [facility] | Andriy Weber | Bladder pain | | 2018 | Support | [address] | MD [address] | (Primary Dx) | | | | [place] | [place] | | | | | [address] | [facility] [place] [address] | | | | | [phone] | [phone] | | | | | | | [...] Units Admin Date 06/25/2017 Action Given Dose 33413 Units Route Irrigation Administered By Loraine Hawkins [...] | | | | | | [place] [address] | | | | | | [phone] | | | | | | | | +--------+---------+ + + + | 03/01/ | Office | Pulmonology | Mukul Clark MD | | | 2020 | Visit | | [address] | | | | | | [place] | | | | | | [address] | | | | | | | [...]
--- OUTSIDE RECORDS SUMMARY | ~2019-09-27 | XMS | Encounter Summary ---
Demographics + + + | Address | [address] | | | [place] [address] | + + + | Home Phone [...] Team Providers + +------+ + | Care Ambulatory Care Coordinator Name | Role | Phone [...] [address] | | | | | [place], | [place], | | | | | [place] [address] | [place] [address] | | | | | [phone] | [phone] | | | | | | | [...] [place] | | | | | | [address] | | | | | | | | +--------+---------+ + + + | 11/24/ | Office | Cardiology | [place], | | | 2019 | Visit | | SINDHU Erickson [address] | | | | | | [place] | | | | | | [place] [address] | | | | | | [phone] | | | | | | | | +--------+---------+ + + + | 03/01/ | Office | Pulmonology | Mukul Clark MD | | | 2020 | Visit | | [address] | | | | | | [place] | | | | | | [address] | | | | | | | [...]
--- OUTSIDE RECORDS SUMMARY | ~2019-09-27 | XMS | Encounter Summary ---
Demographics + + + | Address | [address] | | | [place] [address] | + + + | Home Phone [...] + +------+ + | Care Feed Mill Manager Name | Role | Phone | + +------+ + | Juan Cherry DO | PCP | | + +------+ + Encounter Details +--------+ + + + + | Date | Type | Department | Care Team | Description | +--------+ + + + + | 08/20/ | Abstract | [facility] | Jared Mcdonough, | | | 2013 | | CARDIOLOGY [address] | MD [address] [place] | | | | | [place], | [place], | | | | | [place] [address] | [place] [address] | | | | | [phone] | [phone] | | | | | | | [...] | | | | | | [place] [address] | | | | | | [phone] | | | | | | | | +--------+---------+ + + + | 03/01/ | Office | Pulmonology | Mukul Clark MD | | | 2020 | Visit | | [address] | | | | | | [place] | | | | | | [address] | | | | | | | | +--------+---------+ + + + documented as of this encounter Procedures + +--------+ + + + | Procedure Name | Priori | Date/Time | Associated Diagnosis | Comments | | | ty | | | | + +--------+ + + + | EXTERNAL LAB: TSH | Routin | 07/28/2013 | | Results [...] +--------+ + + + | EXTERNAL LAB: AURELIO | Routin | 05/10/2013 | | Results [...] | EXTERNAL LAB: EGFR | Routin | 05/10/2013 | | Results [...] + | [facility] | [address] | [place] | [phone] | | [facility] | | [address] | | | - LABORATORY | | | | + + + + + | [facility] [facility] | [address] | [place], [place] | | | [facility] | | [address] | | | - LABORATORY | | [...] ST. | [address] | [place] | | | [facility] | | [address] | | | - LABORATORY | | [...] | | | LAB | | | Ecuadorean, | | | | | | External [...]
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
--- OUTSIDE RECORDS SUMMARY | ~2019-09-27 | XMS | Encounter Summary ---
Demographics + + + | Address | [address] | | | [place] [address] | + + + | Home Phone [...] Providers + +------+ + | Care Director Compensation Name | Role | Phone | + [...] Pituitary | Shashi Witt, | [address] | | | | | adenoma | MD Need | [place], | | | | | ([facility]) | updated | [place] | | | | | Procedures | address | [address] | | | | | MRI Brain w | | Phone: | | | | | wo Contrast | | [phone] | | | | | | | Fax: | | | | | | | [phone] | +--------+--------+ + + + + Reason [...] Pituitary | Shashi Witt, | [address] | | | | | adenoma | MD Need | [place], | | | | | ([facility]) | updated | [place] | | | | | Procedures | address | [address] | | | | | MRI Brain w | | Phone: | | | | | wo Contrast | | [phone] | | | | | | | Fax: | | | | | | | [phone] | +--------+--------+ + + + + Encounter Details +--------+ + + + + | Date | Type | Department | Care Team | Description | +--------+ + + + + | 06/02/ | Hospital | [facility] | Shashi Segovia | Pituitary adenoma | | 2014 | Encounter | MED CTR MRI [address] MD Need updated | ([facility]) | | | | [place], | address | | | | | [place] [address] | | | | | | [phone] | | | +--------+ + + + [...] | | | | | | [place] [address] | | | | | | [phone] | | | | | | | | +--------+---------+ + + + | 03/01/ | Office | Pulmonology | Mukul Clark MD | | | 2020 | Visit | | [address] | | | | | | [place] | | | | | | [address] | | | | | | | [...] CONTRAST | e | 9:50 AM | ([facility]) | procedure are in the | | [...] pituitary adenoma COMPARISON: 2009 and 2010 | [facility] | | TECHNIQUE: Multiplanar, multisequence imaging of the brain was | MEDICAL CENTER | | performed in the 1.5 T MR scanner before and after the uneventful | - IMAGING | | administration of 10 mL of Gadavist. Dedicated small vmarf-pv-ltaw | | | thin section imaging through [...] 10 mL ofGadavist. | | Dedicated small lklha-dm-muim thin section imaging through thepituitary region before [...] | + + + + + | [facility] [facility] | [facility] | [place] | [phone] | | [facility] | | [address] | | | - IMAGING | | [...] | | | | PRN, Other, Starting [facility] 06/02/14 | | AM PDT | | | | | at 0934, For 1 dose, MRI | | | | | | + +--------+ +--------+------+------+ +---+---+ | | | +---+---+ documented in this encounter"
--- OUTSIDE RECORDS SUMMARY | ~2019-09-27 | XMS | Encounter Summary ---
Demographics + + + | Address | [address] | | | [place] [address] | + + + | Home Phone [...] Providers + +------+ + | Care Test Engine Mechanic Name | Role | Phone [...] + + | 11/12/ | Office | [facility] | [place], | Chest pain, | | 2018 | Visit | CARDIOLOGY [address] | SINDHU Erickson [address] | unspecified type | | | | [place], | [place], | (Primary Dx); | | | | [place] [address] | [place] [address] | Palpitations; | | | | [phone] | [phone] | Paroxysmal atrial | | | | [...] takes this da rigoberto Respiratory Therapy Supplies [facility] [...] chart may have been created with [employer] voice recognition software. Occasi onal wrong-word or [...] | 2019 | Visit | | Georgina, CLOTH CHECKER [address] | | | | | | [place], | | | | | | [place] [address] | | | | | | [phone] | | | | | | | | +--------+---------+ + + + | 03/01/ | Office | Pulmonology | Mukul Clark MD | | | 2020 | Visit | | [address] | | | | | | [place] | | | | | | [address] | | | | | | | [...] | | | | RUSSELL PAUL, RAFA ([address]) | | | | | | on [...]
--- OUTSIDE RECORDS SUMMARY | ~2019-09-27 | XMS | Encounter Summary ---
Demographics + + + | Address | [address] | | | [place] [address] | + + + | Home Phone [...] Team Providers + +------+ + | Care Psych Specialist Name | Role | Phone | + +------+ + PCP | Unavailable | + +------+ + Encounter Details +--------+ + + + + | Date | Type | Department | Care Team | Description | +--------+ + + + + | 12/29/ | [facility] | [facility] | | | | 2008 - | Encounter | MED CTR OP REHAB | | | | | | [address] [place] | | | | 01/23/ | | [place] [address] | | | | 2008 | | [phone] | | | +--------+ + + + [...] | | | | | | [place] [address] | | | | | | [phone] | | | | | | | | +--------+---------+ + + + | 03/01/ | Office | Pulmonology | Mukul Clark MD | | | 2020 | Visit | | [address] | | | | | | [place] | | | | | | [address] | | | | | | | | +--------+---------+ + + + documented as of this encounter Visit Diagnoses Not on filedocumented in this encounter"
--- OUTSIDE RECORDS SUMMARY | ~2019-09-27 | XMS | Encounter Summary ---
Demographics + + + | Address | [address] | | | [place] [address] | + + + | Home Phone [...] Providers + +------+ + | Care Stage Setting Painter Apprentice Name | Role | Phone | [...] + + | 05/30/ | Office | [facility] | Jamaledgardo Jared, | Chronic obstructive | | 2017 | Visit | MED CTR CARDIAC | MD Migdalia King | pulmonary disease, | | | | REHABILITATION [address] [place], | unspecified COPD | | | | [address] [place] | [place] [address] | type (HCC) (Primary | | | | [place] [address] | [phone] | Dx); Pulmonary | | | | [phone] | | emphysema, | | | | [...] Desean Wheeler - 05/30/2016 3:38 PM PDT [facility] C[facility]IAC [facility]IL[facility]ATION [address] [place] [address] Cardiac Rehab Date: 05/30/2016 Patient Information Patient [...] [place] | | | | | | [address] | | | | | | | | +--------+---------+ + + + | 11/24/ | Office | Cardiology | [place], | | | 2019 | Visit | | SINDHU Erickson [address] | | | | | | [place] | | | | | | [place] [address] | | | | | | [phone] | | | | | | | | +--------+---------+ + + + | 03/01/ | Office | Pulmonology | Mukul Clark MD | | | 2020 | Visit | | [address] | | | | | | [place] | | | | | | [address] | | | | | | | | +--------+---------+ + + + documented as of this encounter Visit Diagnoses + + | Diagnosis | + + | Chronic obstructive pulmonary disease, unspecified COPD type (HCC) - Primary | + + | Pulmonary emphysema, unspecified emphysema type (HCC) | + + documented in this encounter"
--- OUTSIDE RECORDS SUMMARY | ~2019-09-27 | XMS | Encounter Summary ---
Demographics + + + | Address | [address] | | | [place] [address] | + + + | Home Phone [...] Providers + +------+ + | Care Center Specialists Name | Role | Phone | + [...] + | 09/25/ | Office | [facility] | [place], | Chest pain, | | 2016 | Visit | CARDIOLOGY [address] | SINDHU Erickson [address] | unspecified type | | | | [place], | [place], | (Primary Dx); | | | | [place] [address] | [place] [address] | Paroxysmal atrial | | | | [phone] | [phone] | tachycardia (HCC); | | | | [...] a Holter monitor and to [facility] to come to discuss results. Since that [...] to [place] to be evaluated in [place] for a stomach/a bdominal surgery. Cardiac-garcia she [...] takes this da rigoberto Respiratory Therapy Supplies [facility] [...] Lifetime. Please send orde r to [facility]. This is not [...] during visit today primarily from [facility]: LIPID No results found for: CHOL, TRIG, [...] PLTEX 370 07/11/2014 I reviewed records from [facility] for office visit on 09/05/2015 which is [...] is in a class II of [place] [employer] functional class. There is [...] and ventricular function don e at the [facility]. LVEF [...] | | | | | | [place] [address] | | | | | | [phone] | | | | | | | | +--------+---------+ + + + | 03/01/ | Office | Pulmonology | Mukul Clark MD | | | 2020 | Visit | | [address] | | | | | | [place] | | | | | | [address] | | | | | | | | +--------+---------+ + + + documented as of this encounter Visit Diagnoses + + | Diagnosis | + + | Chest pain, unspecified type - Primary | + + | Paroxysmal atrial tachycardia (HCC) Paroxysmal supraventricular tachycardia | + + | Palpitations | + + documented in this encounter
--- OUTSIDE RECORDS SUMMARY | ~2019-09-27 | XMS | Encounter Summary ---
Demographics + + + | Address | [address] | | | [place] [address] | + + + | Home Phone [...] Providers + +------+ + | Care Family Therapist Name | Role | Phone | + +------+ + PCP | Unavailable | + +------+ + Encounter Details +--------+ + + + + | Date | Type | Department | Care Team | Description | +--------+ + + + + | 03/23/ | Hospital | [facility] | Rocky Rodriguez | | | 2010 | Encounter | MED CTR EMERGENCY | MD Kyler [address] | | | | | CENTER [address] | [address] | | | | | [place], [place] | [place] [address] | | | | | [address] | [phone] | | | | | [phone] | | | +--------+ + + + [...] | | | | | | [place] [address] | | | | | | [phone] | | | | | | | | +--------+---------+ + + + | 03/01/ | Office | Pulmonology | Mukul Clark MD | | | 2020 | Visit | | [address] | | | | | | [place] | | | | | | [id number] | | | | | | | | +--------+---------+ + + + documented as of this encounter Visit Diagnoses Not on filedocumented in this encounter"
--- OUTSIDE RECORDS SUMMARY | ~2019-09-27 | XMS | Encounter Summary ---
Demographics + + + | Address | [address] | | | [place] [address] | + + + | Home Phone [...] Providers + +------+ + | Care Gift Wrapper Name | Role | Phone | + [...] + + | 06/28/ | Office | [facility] | Andriy Weber | Cystitis, | | 2015 | Visit | [address] | MD Robert [address] | interstitial | | | | [place] | [place] | (Primary Dx) | | | | [address] | [place] [address] | | | | | [phone] | [phone] | | | | | | | [...] takes this da rigoberto Respiratory Therapy Supplies [facility] Please provide patient with necessary CPAP supplies ( she did not specify, okay to send order as appropriate) Diagnosis Code(s)327.23 . Length of Need 99 months. Please send order to [facility]. 1 each 0 Respiratory Therapy Supplies [facility] Change CPAP back to 11-14 cm H2O. All necessary suppl ies. No oxygen bleed in. Diagnosis Code(s)327.23. Length of Need: Lifetime. Please send orde r to [facility]. This is not a new [...] from a 14 F rench to 22 [place] in size with [place] sounds to allow passage of the scope. [...] to dilate the urethra to a 22 [place]. Although this may be a temp orary [...] have not thoroughly proofread this note, and conference manager erro rs may occur. docu mented in [...] | | | | | | [place] [address] | | | | | | [phone] | | | | | | | [...]
--- OUTSIDE RECORDS SUMMARY | ~2019-09-27 | XMS | Encounter Summary ---
Demographics + + + | Address | [address] | | | [place] [address] | + + + | Home Phone [...] Providers + +------+ + | Care Consumer Attorney Name | Role | Phone | [...] of sprains and | | | | [place] [address] | updated address | strains (Primary | | | | [address] [place] | | Dx) | | | | [place] | | | | | | [address] | | | | | | [phone] | | | +--------+ + + + [...] | | | | | | [place] [address] | | | | | | [phone] | | | | | | | | +--------+---------+ + + + | 03/01/ | Office | Pulmonology | Mukul Clark MD | | | 2020 | Visit | | [address] | | | | | | [place] | | | | | | [address] | | | | | | | | +--------+---------+ + + + documented as of this encounter Visit Diagnoses + + | Diagnosis | + + | Other specified sites of sprains and strains - Primary | + + documented in this encounter"
--- OUTSIDE RECORDS SUMMARY | ~2019-09-27 | XMS | Encounter Summary ---
Demographics + + + | Address | [address] | | | [place] [address] | + + + | Home Phone [...] Providers + +------+ + | Care Button Clamper Name | Role | Phone | + +------+ + | Juan Cherry DO | PCP | | + +------+ + Encounter Details +--------+ + + + + | Date | Type | Department | Care Team | Description | +--------+ + + + + | 11/05/ | Hospital | [facility] | Shashi Segovia | Pituitary mass (HCC) | | 2013 | Encounter | MED CTR LABORATORY | MD Miryam Need updated | | | | | [address] | address | | | | | [place] | | | | | | [address] | | | | | | [phone] | | | +--------+ + + + [...] [place] | | | | | | [address] | | | | | | | | +--------+---------+ + + + | 11/24/ | Office | Cardiology | [place], | | | 2019 | Visit | | SINDHU Erickson [address] | | | | | | [place], | | | | | | [place] [address] | | | | | | [phone] | | | | | | | | +--------+---------+ + + + | 03/01/ | Office | Pulmonology | Mukul Clark MD | | | 2020 | Visit | | [address] | | | | | | [place] | | | | | | [phone] | | | | | | | [...] [place] | | | | | | [address] | | | | + + + + + + + + | Specimen | + + | Blood specimen | | (specimen) | + + + + + + + | Performing | Address | City/State/Zipcode | Phone Number | | Organization | | | | + + + + + | [facility] | [address] | [place] [address] | [phone] | + + + + + Insulin-Like [...] [place], | | | | | | [place] [address] | | | | + + + [...] [address] | [place] [address] | [phone] | + + + + + Prolactin [...] [place] | | | | | | [address] | | | | + + + [...] [address] | [place] [address] | [phone] | + + + + + documented in this encounter Visit Diagnoses + + | Diagnosis | + + | Pituitary mass (HCC) Unspecified disorder of the pituitary gland and its hypothalamic | | control | + + documented in this encounter"
--- OUTSIDE RECORDS SUMMARY | ~2019-09-27 | XMS | Encounter Summary ---
Demographics + + + | Address | [address] | | | [place] [address] | + + + | Home Phone [...] [address] | | | | | [place], | [place], | | | | | [place] [address] | [place] [address] | | | | | [phone] | [phone] | | | | | | | [...] [place] | | | | | | [address] | | | | | | | | +--------+---------+ + + + | 11/24/ | Office | Cardiology | [place] | | | 2019 | Visit | | SINDHU Erickson [address] | | | | | | [place] | | | | | | [place] [address] | | | | | | [phone] | | | | | | | [...]
--- OUTSIDE RECORDS SUMMARY | ~2019-09-27 | XMS | Encounter Summary ---
Demographics + + + | Address | [address] | | | [place] [address] | + + + | Home Phone [...] Providers + +------+ + | Care Accounts Adjustable Clerk Name | Role | Phone | [...] | (Primary Dx) | | | | [facility] | [address] [place] | | | | | [place] | [place] [address] | | | | | [address] | [phone] | | | | | [phone] | | | +--------+---------+ + + + [...] dyspnea. Lungs clear. Assessment: 1. Asthma exacerbation NC INHAL RX, AIRWAY OBST/DX SPUTUM INDUCT, albuterol [...] [place] | | | | | | [place] [address] | | | | | | [phone] | | | | | | | | +--------+---------+ + + + | 03/01/ | Office | Pulmonology | Mukul Clark MD | | | 2020 | Visit | | [address] | | | | | | [place] | | | | | | [address] | | | | | | | [...]
--- OUTSIDE RECORDS SUMMARY | ~2019-09-27 | XMS | Encounter Summary ---
Demographics + + + | Address | [address] | | | [place] [address] | + + + | Home Phone [...] Team Providers + +------+ + | Care Automation Sales Manager Name | Role | Phone [...] | cystitis | [address] | | | | | | [address]VE [place] | [place], | | | | | | [place], [place] | [place] [address] | | | | | | [address] | Phone: | | | | | | Phone: | [phone] | | | | | | [phone] | Fax: | | | | | | Fax: | [phone] | | | | | | [phone] | | +--------+ + + + + + Encounter Details +--------+ + + + + | Date | Type | Department | Care Team | Description | +--------+ + + + + | 11/12/ | Orders Only | [facility] | Weber Andriy | Interstitial | | 2016 | | [address] | MD [address] | cystitis (Primary | | | | [place], [place] | [address] | Dx) | | | | [address] | [place] [address] | | | | | [phone] | [phone] | | | | | | | [...] | | | | | | [place] [address] | | | | | | [phone] | | | | | | | | +--------+---------+ + + + | 03/01/ | Office | Pulmonology | Mukul Clark MD | | | 2020 | Visit | | [address] | | | | | | [place] | | | | | | [phone] | | | | | | | [...]
--- OUTSIDE RECORDS SUMMARY | ~2019-09-27 | XMS | Encounter Summary ---
Demographics + + + | Address | [address] | | | [place] [address] | + + + | Home Phone [...] Team Providers + +------+ + | Care Lean Manager Name | Role | Phone | + +------+ + PCP | Unavailable | + +------+ + Encounter Details +--------+ + + + + | Date | Type | Department | Care Team | Description | +--------+ + + + + | 10/11/ | Hospital | [facility] | Berna Vizcaino MD | HEADACHE; | | 2010 | Encounter | CONVERSION DEP [address] | [address] | Diplopia; | | | | [address] | [place] [address] | Dizziness | | | | [place], [place] | [phone] | | | | | [address] | | | | | | [phone] | | | +--------+ + + + [...] | | | | | | [place] [address] | | | | | | [phone] | | | | | | | | +--------+---------+ + + + | 03/01/ | Office | Pulmonology | Mukul Clark MD | | | 2020 | Visit | | [address] | | | | | | [place] | | | | | | [address] | | | | | | | [...] Performed At | + + + | [facility] [address] Ph: | | | Patient Name: JADYN SCHMITZ Date of : | | | 1965 Medical Record: [id number] Account: [id number] | | | Exam Date/Time: 10/11/2010 12:00 [...] The data set was also examined with [employer] 3D software | | | for evaluation [...] - 10/17/2018 5:21 PM PDT | | [facility] | | [facility] [address] | | | | | | Patient Name: JADYN SCHMITZ | | Date of : 1965 | | Medical Record: [id number] | | Account: [id number] | | | | | | Exam [...] set was also examined with | | [employer] 3D software for evaluation of the cerebral [...]
--- OUTSIDE RECORDS SUMMARY | ~2019-09-27 | XMS | Encounter Summary ---
Demographics + + + | Address | [address] | | | [place] [address] | + + + | Home Phone [...] Team Providers + +------+ + | Care Crossing Flagman Name | Role | Phone | [...] [address] | | | | | [place], | [address] [place] | | | | | [place] [address] | [place] [address] | | | | | [phone] | [phone] | | | | | | | [...] MED C TR SPEECH THERAPY [address] [place] [address] Cancellation/No Show Date: 07/18/2016 Patient Information Patient [...] | | | | | | [place] [address] | | | | | | [phone] | | | | | | | [...]
--- OUTSIDE RECORDS SUMMARY | ~2019-09-27 | XMS | Encounter Summary ---
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 She has worked with a solar fabrication technician to correct her leaks. He has [...] week, sooner prn. Thirty minutes were spent xcod-jj-rzyu, with the majority of time spent in counseling. Maxim Delgado PA-C cc: Juan Cherry DO Hailee Coughlin - 2012 10:16 AM PST 03/06/12 [address] Depression Inventory-II Depression Score 43 Insomnia Severity Index Insomnia Severity Index 22 [place] Sleepiness Scale Sitting and reading 3 Watching [...] [place] | | | | | | [id number] | | | | | | | | +--------+---------+ + + + | 11/24/ | Office | Cardiology | [place], | | | 2019 | Visit | | SINDHU Erickson [address] | | | | | | [place] | | | | | | [place] [address] | | | | | | [phone] | | | | | | | | +--------+---------+ + + + | 03/01/ | Office | Pulmonology | Mukul Clark MD | | | 2020 | Visit | | [address] | | | | | | [place] | | | | | | [address] | | | | | | | | +--------+---------+ + + + documented as of this encounter Visit Diagnoses + + | Diagnosis | + + | GARRY on CPAP - Primary Obstructive sleep apnea (adult) (pediatric) | + + | Organic insomnia, unspecified | + + documented in this encounter"
--- OUTSIDE RECORDS SUMMARY | ~2019-09-27 | XMS | Encounter Summary ---
Demographics + + + | Address | [address] | | | [place] [address] | + + + | Home Phone [...] Providers + +------+ + | Care Patient Admitting Clerk Name | Role | Phone | [...] | | | | unspecified | | [address] | | | | | laterality | | Phone: | | | | | Primary | | [phone] | | | | | localized | | Fax: | | | | | osteoarthros | | [phone] | | | | | is of hand, | | | | | | | unspecified | | | | | | | laterality | | | | | | | [[id number] | | | | | | | Procedures | | | | | | | AL REPAIR | | | | | | [...] | [facility] | Jesus Brady | | | 2018 | Encounter | MED CTR OR INTRA OP | J, DO [address] | | | | | [address] | [address] [place], [place] | | | | | [place], [place] | [address] | | | | | [address] | [phone] | | | | | [phone] | | | +--------+ + + + [...] Instructions Instructions Daniela Caro RN - 06/17/2018[facility] Follow all instructions you are given for how long not to eat or drink before your proce dure. Be sure your doctor knows what medicines and drugsyou take. This includes lryg-thp-irz nter medicines, herbs, supplements, alcohol or other [...] adam p you safe. Date Last Reviewed: 01/25/201619990936-0230 [employer] [place] [address]. All righ ts reserved. This information is not intended as a substitute for professional medical care. Always follow your healthcare professional's instructions. [facility] Post-op Instructions - Thumb Surgery The following instructions are meant to guide you following surgery until your first post-o perative visit 7-12 days later. For any problems or questions, please call our office at [phone], Friday through Friday, 9:00 am - 5:00 [...] may have received from the [facility], advice from friends, family members, [employer] leaders, Call [place] clerks, fox lee, Anu, Dr. Jain, Dr. Weinstein, sports heroes, etc. If unsure, please call our office. Thank you, Jesus Brady D.O. [facility] [address] [place] [address] Your post op appointment is scheduled for Friday06/29/18 at 9:15am. Please check in at 8:45 am for X-rays at the [facility]. documented in this encounter Medications at Time [...] | send order to [facility] | | | | | | | [...] as of this encounter H&P Notes Jesus Brady, DO - 06/18/2018 2:06 PM PDTSURGICAL INTERIM [...] signed by: Jesus Brady DO, 06/18/2018 14:[address] [facility] Jesus [facility] DO at [...] PA-C, and ew radiographs were obtained at [facility]. She de nies any swelling, numbness [...] FOR WHEEZING ; Therapy: 14Aug2012 to (Last Rx:84Sds6427) Requested for: 14Aug2012 Ordered Cetirizine HCl - 10 MG Oral Tablet; TAKE ONE TABLET BY MOUTH EVERY DAY; Therapy: 25Jun2015 to (Evaluate:28Apr2018) Requested for: 06Udp9590; Last Rx:02Jun2017 Ordered Daliresp 500 MCG Oral Tablet; TAKE ONE TABLET BY MOUTH EVERY DAY; Therapy: 24May2013 to (Evaluate:20Jun2018) Requested for: 13Hwa0040; Last Rx:98Bwd9015 Ordered diazePAM 10 MG Oral Tablet; take 1 tablet 30 minutes prior to appointment; Therapy: 12Nov2016 to (Last Rx:92Yup1635) Ordered Digoxin 125 MCG Oral Tablet; TAKE 1 TAB ONCE DAILY; Therapy: 31Jul2017 to Recorded Fluticasone Propionate 50 MCG/ACT Nasal Suspension; INSTILL TWO SPRAYS IN EACH NOSTRIL DAILY; Therapy: 23Mar2018 to (Evaluate:95Xnt5843) Requested for: 23Mar2018; Last Rx:23Mar2018 Ordered Gabapentin 800 MG Oral Tablet; TAKE 1 TABLET BY MOUTH 3 TIMES DAILY; Therapy: 73Zqn1270 to (Evaluate:56Brw9014) Requested for: 78Quy3794; Last Rx:64Hri5256 Ordered hydrOXYzine HCl - 25 MG Oral Tablet; TAKE 1 TABLET AT BEDTIME Requested for: 22Cnx7783; Last Rx:24Mrr0679; Status: ACTIVE - Transmit to Pharmacy - Awaiting Verification Ordered Ipratropium-Albuterol 0.5-2.5 (3) MG/3ML Inhalation Solution; Therapy: 55Iaq2751 to Recorded Levothyroxine Sodium 75 MCG Oral Tablet; TAKE ONE TABLET BY MOUTH EVERY DAY; Therapy: 82Cik5552 to (Evaluate:22Hok0989) Requested for: 07Kjc3206; Last Rx:51Muo9851 Ordered Magnesium 200 MG Oral Tablet; TAKE 1 TABLET DAILY DIRECTED; Therapy: 61Eig5720 to Recorded Meclizine HCl - 12.5 MG Oral Tablet; TAKE 1 TABLET 3 TIMES DAILY NEEDED; Therapy: 08Ydx0306 to (Evaluate:73Uew0543) Requested for: 22Zwy5457; Last Rx:33Vaa9333 Ordered metFORMIN HCl - 500 MG Oral Tablet; TAKE 1 TABLET BY MOUTH EVERY 12 HOURS WITH FOOD; Therapy: 94Rmm5908 to (Evaluate:91Ecn8843) Requested for: 28Apr2018; Last Rx:28Apr2018; Status: ACTIVE - Transmit to Pharmacy - Awaiting Verification Ordered Nystatin 073467 UNIT/ML Mouth/Throat Suspension; SWISH AND SWALLOW 5 ML 4 TIMES DAILY FOR 7 DAYS; Therapy: 61Pic3413 to (Last Rx:49Bpm1483) Requested for: 11Dtf7288 Ordered Oxybutynin Chloride 5 MG Oral Tablet; Take 1 daily; Therapy: (Recorded:18Mar2017) to Recorded Pantoprazole Sodium 40 MG Oral Tablet Delayed Release; TAKE 1 TABLET DAILY; Therapy: 18Mar2017 to Recorded predniSONE 10 MG Oral Tablet; Take one tablet daily; Therapy: 36Kbi0520 to (Evaluate:06Koj7893) Requested for: 09Jun2015 Recorded Propranolol HCl - 10 MG Oral Tablet; TAKE ONE TABLET BY MOUTH TWICE DAILY; Therapy: 59Nzc6457 to (Evaluate:69Yzw6467) Requested for: 16Dec2017; Last Rx:16Dec2017 Ordered SUMAtriptan Succinate 100 MG Oral Tablet; TAKE 1 TAB BY MOUTH DAILY AT ONSET OF HEADACHE. MAY REPEAT DOSE IN 2 HOURS IF NEEDED. NTE 4 TABS/24HRS; Therapy: 46Ghs4235 to (Evaluate:42Baw8681) Requested for: 82Uvo5856; Last Rx:19Jan2018 Ordered traMADol HCl - 50 [...] Brady DO - 06/18/2018 3:39 PM PDT [facility] Operative Note Patient: Rosario Malik Date: 06/18/2018 PREOPERATIVE DIAGNOSIS: Right thumb CMC joint OA Postoperative diagnosis: Same SURGICAL PROCEDURE: Procedure(s) (LRB): Right Basal Joint Arthroplasty, tendon interposition (Right) INDICATIONS: Arthritis IMPLANTS: * No implants in log * surgeon: Jesus Brady DO dental chairside assistant: Elías Last PA-C ANESTHESIOLOGIST: Anesthesiologist: Ra [...] 2019 | Visit | | SID[facility] Erickson [address] | | | | | | [place] | | | | | | [place] [address] | | | | | | [phone] | | | | | | | | +--------+---------+ + + + | 03/01/ | Office | Pulmonology | Mukul Clark MD | | | 2020 | Visit | | [address] | | | | | | [place] | | | | | | [address] | | | | | | | [...] + | Reed, Roger Results In - 06/18/2018 4:34 PM PDT [...] [address] | [place] | [phone] | | [facility] | | [address] | | | - LABORATORY | | | | + + + + + documented in this encounter Visit Diagnoses + + | Diagnosis | + + | CMC DJD(carpometacarpal degenerative joint disease), localized primary - Primary | | Primary localized osteoarthrosis, hand | + + | [...] Shortness of Breath, | | | [facility] 06/18/18 at 1542, For | | | [...] mL/hr | | | CONTINUOUS, Starting Carey 4/25/19 | | PM PDT | | | [...]
--- OUTSIDE RECORDS SUMMARY | ~2019-09-27 | XMS | Encounter Summary ---
Demographics + + + | Address | [address] | | | [place] [address] | + + + | Home Phone [...] Team Providers + +------+ + | Care Reinsurance Accountant Name | Role | Phone | [...] [address] [place] | | | | | [place], [place] | [place] [address] | | | | | [address] | [phone] | | | | | [phone] | | | +--------+ + + + [...] possible bacterial bronchitis till pt sees her meal temperer. Pt was agreeable with plan. documented in [...] | | | | | | [place] [address] | | | | | | [phone] | | | | | | | | +--------+---------+ + + + | 03/01/ | Office | Pulmonology | Mukul Clark MD | | | 2020 | Visit | | [address] | | | | | | [place] | | | | | | [address] | | | | | | | | +--------+---------+ + + + documented as of this encounter Visit Diagnoses + + | Diagnosis | + + | Bronchitis - Primary Bronchitis, not specified as acute or chronic | + + documented in this encounter"
--- OUTSIDE RECORDS SUMMARY | ~2019-09-27 | XMS | Encounter Summary ---
Demographics + + + | Address | [address] | | | [place] [address] | + + + | Home Phone [...] Team Providers + +------+ + | Care Coat Repair Inspector Name | Role | Phone | [...] | esophagitis | [address] | [place] | | | | | presence not | [place], [place] | [place], | | | | | specified | [address] | [place] [address] | | | | | Procedures | Phone: | Phone: | | | | | NM Gastric | [phone] | [phone] | | | | | Emptying | Fax: | Fax: | | | | | | [phone] | [phone] | +--------+--------+ + + + + Encounter Details +--------+ + + + + | Date | Type | Department | Care Team | Description | +--------+ + + + + | 04/02/ | Hospital | [facility] | Dio Yun | | | 2017 | Encounter | MED CTR NUCLEAR | MD [address] | | | | | MEDICINE [address] | [place] | | | | | [place], | [place], [place] | | | | | [place] [address] | [address] | | | | | [phone] | [phone] | | | | | | | [...] | | | | | [facility]. | | | | [...] | 0 | 10/13/19 | | | Gcpncmezro-WKKU-Svgk | mouth as needed. | | | 16 | 7 | | -Cod 36-458-06-30 MG | | | | | | [...] | | | | | | [place] [address] | | | | | | [phone] | | | | | | | | +--------+---------+ + + + | 03/01/ | Office | Pulmonology | Mukul Clark MD | | | 2020 | Visit | | [address] | | | | | | [place] | | | | | | [address] | | | | | | | [...]
--- OUTSIDE RECORDS SUMMARY | ~2019-09-27 | XMS | Encounter Summary ---
Demographics + + + | Address | [address] | | | [place] [address] | + + + | Home Phone [...] Providers + +------+ + | Care Vp Care Management Name | Role | Phone | [...] | | | | | [facility] [address] | address | | | | | [place] | | | | | | [address] | | | | | | [phone] | | | +--------+ + + + [...] [place] | | | | | | [address] | | | | | | | | +--------+---------+ + + + | 11/24/ | Office | Cardiology | [place], | | | 2019 | Visit | | SINDHU Erickson [address] | | | | | | [place] | | | | | | [place] [address] | | | | | | [phone] | | | | | | | [...]
--- OUTSIDE RECORDS SUMMARY | ~2019-09-27 | XMS | Encounter Summary ---
Demographics + + + | Address | [address] | | | [place] [address] | + + + | Home Phone [...] Team Providers + +------+ + | Care Kerfer Machine Operator Name | Role | Phone [...] | Specialty | Physical | Diagnoses | [place], | [facility] | | | Services | Therapy | | Grant Maynard MD | Pt Acute | | | Required | | Fibromyalgia | [address] | [address] | | | | | | [address] [place] | [place], | | | | | | [place], [place] | [place] | | | | | | [address] | [address] | | | | | | Phone: | Phone: | | | | | | [phone] | [phone] | | | | | | Fax: | Fax: | | | | | | [phone] | [phone] | +--------+ + + + + + Reason for Visit + + + | Reason | Comments | + + + | New Patient | Establish care | + + + Encounter Details +--------+---------+ + + + | Date | Type | Department | Care Team | Description | +--------+---------+ + + + | 03/02/ | Office | [facility] | Grant [place], | ORGANIC INSOMNIA | | 2013 | Visit | MEDICINE [place] | [address] | UNSPECIFIED (Primary | | | | [address] | [place] | Dx); Primary | | | | [place] | [address] | central sleep apnea; | | | | [address] | | Tobacco user; | | | | [phone] | | Posttraumatic stress | | | [...] your behavior and peer support. Call the [facility] Quitline for more information. 135-FFKQ-PLB (220-413-6057). Low-cost or free programs are offered by many hospitals, local chapters of the [place] [employer] (256-453-8989) a nd the [place] [employer] (744-226-9618). Support at home is important too. Non-smokers can help by offering praise and encouragement. If the smoker fails to quit, encourage them to try again! ORPU-DMW-OITQVZS MEDICINES: For those who can't quit on [...] such as bupropion (Zyban, Wellbutrin), varenicline (Chantix, [place] ix), a niocotine inhaler or nasal spray. [...] smoking, visit the following links: National Cancer [place] , Clearing the Air, Quit Smoking Today - an online tejada klet. http://www.smokefree.gov/pubs/clearing_the_air.pdf Smokefree.gov http://smokefree.gov/ QuitNet http://www.quitnet.com/ 1485-1172 Rafael Perez, [address] [place] [address], [place] [address]. All rights reserve d. This information is [...] to relax by reading or listening to Metaset music. 7. Limit daytime napping to one [...] there) Anxiety, depression Several days without sleeping 6422-6844 Rafael Perez, [address] [place] [address], [place] [address]. All rights reserve d. This information is [...] and 11:30-11:45 on nights she does wor gumi. 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 Sh e did attempt suicide once, can't recall the medicine. This was in 1986 and 1988. No thoug hts of SI or HI in years. She has hypothryroidism managed by [facility]. She sees [facility] due to possible [place]'s and possi quentin adrenal insufficiency. She has fibromyalgia treated with cymbalta and tramadol. Tried PT years ago. Can't afford tok tok tok membership. Patient's medications, allergies, past medical, surgical, [...] [place] | | | | | | [address]672 | | | | | | | | +--------+---------+ + + + | 11/24/ | Office | Cardiology | [place], | | | 2019 | Visit | | SINDHU Erickson [address] | | | | | | [place], | | | | | | [place] [address] | | | | | | [phone] | | | | | | | | +--------+---------+ + + + | 03/01/ | Office | Pulmonology | Mukul Clark MD | | | 2020 | Visit | | [address] | | | | | | [place] | | | | | | [address] | | | | | | | [...]
--- OUTSIDE RECORDS SUMMARY | ~2019-09-27 | XMS | Encounter Summary ---
Demographics + + + | Address | [address] | | | [place] [address] | + + + | Home Phone [...] Providers + +------+ + | Care Spinner Cap Frame Name | Role | Phone | + [...] [address] | | | | | [place], | [place] | | | | | [place] [address] | [address] | | | | | [phone] | | | +--------+--------+ + + + [...] [place] | | | | | | 3767[address] | | | | | | | | +--------+---------+ + + + | 11/24/ | Office | Cardiology | Flores | | | 2019 | Visit | | SINDHU Erickson [address] | | | | | | [place] | | | | | | [place] [address] | | | | | | [phone] | | | | | | | [...]
--- OUTSIDE RECORDS SUMMARY | ~2019-09-27 | XMS | Encounter Summary ---
Demographics + + + | Address | [address] | | | [place] [address] | + + + | Home Phone [...] +------+ + | Care Printed Circuit Board Drafter Name | Role | Phone | + +------+ + | Juan Cherry DO | PCP | | + +------+ + Encounter Details +--------+ + + + + | Date | Type | Department | Care Team | Description | +--------+ + + + + | 01/07/ | Hospital | [facility] | Lencho Astorga, | Contusion of foot | | 2012 | Encounter | MED CTR XRAY [address] | MD [address] | including toes | | | | [place] | [place], [place] | | | | | [place] [address] | [address] | | | | | [phone] | | | +--------+ + + + [...] | | | send order to [facility] | | | | | [...] [place] | | | | | | [place] [address] | | | | | | [phone] | | | | | | | | +--------+---------+ + + + | 03/01/ | Office | Pulmonology | Mukul Clark MD | | | 2020 | Visit | | [address] | | | | | | [place] | | | | | | [address] | | | | | | | [...] At | + + + | [facility] | [place] | | Department [address] [facility] | [facility] | | [ rep ct [address]] [ rep ct [facility] | | [facility]] Signed | - IMAGING | | | | | Patient Name: JADYN SCHMITZ | | | Physician: FRANCA : 1965 Age: 47 Sex: F Unit | | | #: [id number] Exam Date: 01/07/13 Location: | | | [facility] Report #: [id number] Page: | | | %(RAD)RES..mtdd.print.filter("pg") of %(RAD) | | | RES..mtdd.print.filter("tpg") | | | | | | Accession Number: [id number] | | | LEFT FOOT, 01/07/2013 CLINICAL [...] Transcribed | | | Date/Time: 01/07/2013 15:01 Aquarium Specialist: | | | <<Signature on File>> | | | Kobe | | | MD Tor01/07/13 5524 <Electronically signed by Kobe Lentz MD> | | | Kobe Lentz MD 01/07/13 1430 Aquarium Specialist: Tixie ([employer]yariel | | | [id number]/14/13 1501 Lencho Astorga MD | | + + + + + + + + | Performing | Address | City/State/Zipcode | Phone Number | | Organization | | | | + + + + + | [facility] | [address] | [place] | [phone] | | [facility] | | [address] | | | - IMAGING | | | | + + + + + documented in this encounter Visit Diagnoses + + | Diagnosis | + + | Contusion of foot including toes Contusion of foot | + + documented in this encounter
--- OUTSIDE RECORDS SUMMARY | ~2019-09-27 | XMS | Encounter Summary ---
Demographics + + + | Address | [address] | | | [place] [address] | + + + | Home Phone [...] Team Providers + +------+ + | Care Android Ios Developer Name | Role | Phone | [...] [address] | | | | | [place], | [place], | | | | | [place] [address] | [place] [address] | | | | | [phone] | [phone] | | | | | | | [...] [address] | | | | | | [place] | | | | | | [address] | | | | | | | | +--------+---------+ + + + | 11/24/ | Office | Cardiology | [place], | | | 2019 | Visit | | SINDHU Erickson [address] | | | | | | [place] | | | | | | [place] [address] | | | | | | [phone] | | | | | | | | +--------+---------+ + + + | 03/01/ | Office | Pulmonology | Mukul Clark MD | | | 2020 | Visit | | [address] | | | | | | [place] | | | | | | [id number] | | | | | | | | +--------+---------+ + + + documented as of this encounter Visit Diagnoses Not on filedocumented in this encounter"
--- OUTSIDE RECORDS SUMMARY | ~2019-09-27 | XMS | Encounter Summary ---
Demographics + + + | Address | [address] | | | [place] [address] | + + + | Home Phone [...] Providers + +------+ + | Care Engineer System Administrator Name | Role | Phone | [...] W | | | | | | [place], | | | | | | [place] [address] | | | | | | [phone] | | | +--------+ + + + [...] Speech Pathologist - 06/27/2016 11:[facility] [address] [place] [address] Cancellation/No Show Date: 06/27/2016 Patient Information Patient [...] | | | | | | [place] [address] | | | | | | [phone] | | | | | | | [...]
--- OUTSIDE RECORDS SUMMARY | ~2019-09-27 | XMS | Encounter Summary ---
Demographics + + + | Address | [address] | | | [place] [address] | + + + | Home Phone [...] Providers + +------+ + | Care Elevator Starter Name | Role | Phone | + +------+ + PCP | Unavailable | + +------+ + Encounter Details +--------+ + + + + | Date | Type | Department | Care Team | Description | +--------+ + + + + | 04/05/ | [facility] | [facility] | | | | 2010 | Encounter | MED CTR XRAY [address] | | | | | | [place] | | | | | | [place] [address] | | | | | | [phone] | | | +--------+ + + + [...] [place] | | | | | | [place] [address] | | | | | | [phone] | | | | | | | | +--------+---------+ + + + | 03/01/ | Office | Pulmonology | Mukul Clark MD | | | 2020 | Visit | | [address] | | | | | | [place] | | | | | | [address] | | | | | | | | +--------+---------+ + + + documented as of this encounter Visit Diagnoses Not on filedocumented in this encounter"
--- OUTSIDE RECORDS SUMMARY | ~2019-09-27 | XMS | Encounter Summary ---
Demographics + + + | Address | [address] | | | [place] [address] | + + + | Home Phone [...] Team Providers + +------+ + | Care Safe And Vault Mechanic Name | Role | Phone | [...] | CARDIOLOGY [address] | [address] | (Primary Dx) | | | | [place], | [place], | | | | | [place] [address] | [place] [address] | | | | | [phone] | [phone] | | | | | | | [...] mg by mouth Daily. Respiratory Therapy Supplies [facility] Incentive spirometer. Please provide instructions in use. Dx: 848.8 MADELEINE: 3 months 1 each 99 Respiratory Therapy Supplies [facility] [...] a class II of [place] Heart Association functi onal class. There is [...] and ventricular function don e at the [facility]. LVEF 78%. C. Holter Monitor 08/16/13 [...] months. Electronically signed by: Jared Mcdonough MD [facility] 03/17/2014 Portions of this chart may have been created with Provasculon voice recognition software. Occasi onal wrong-word or [...] | | | | | | [place] [address] | | | | | | [phone] | | | | | | | | +--------+---------+ + + + | 03/01/ | Office | Pulmonology | Mukul Clark MD | | | 2020 | Visit | | [address] | | | | | | [place] | | | | | | [address] | | | | | | | | +--------+---------+ + + + documented as of this encounter Visit Diagnoses + + | Diagnosis | + + | Other chest pain - Primary | + + documented in this encounter
--- OUTSIDE RECORDS SUMMARY | ~2019-09-27 | XMS | Encounter Summary ---
Demographics + + + | Address | [address] | | | [place] [address] | + + + | Home Phone [...] + + | 11/12/ | Hospital | [facility] | Andriy Weber | | | 2016 | Encounter | MED CTR XRAY [address] | MD [address] | | | | | [place] | [address] [place] | | | | | [place] [address] | [place] [address] | | | | | [phone] | [phone] | | | | | | | [...] | | | | send order to [facility] | | | | [...] | 0 | 10/13/19 | | | Dkeesdyool-FKXD-Nmao | mouth as needed. | | | 16 | 7 | | -Cod 21-700-18-30 MG | | | | | | [...] [place] | | | | | | 8529[address] | | | | | | | | +--------+---------+ + + + | 11/24/ | Office | Cardiology | [place], | | | 2019 | Visit | | SINDHU Erickson [address] | | | | | | [address] [place] | | | | | | [place] [address] | | | | | | [phone] | | | | | | | | +--------+---------+ + + + | 03/01/ | Office | Pulmonology | Mukul Clark MD | | | 2020 | Visit | | [address] | | | | | | [place] | | | | | | [address] | | | | | | | [...]
--- OUTSIDE RECORDS SUMMARY | ~2019-09-27 | XMS | Encounter Summary ---
Demographics + + + | Address | [address] | | | [place] [address] | + + + | Home Phone [...] Team Providers + +------+ + | Care Contracts Administrator Name | Role | Phone | [...] [address] | | | | | [address] | [place] [address] | | | | | [phone] | [phone] | | | | | | | [...] provided DL and [place] photo id for picker and sorter load and unload. Vahe Khan [birth year]. P M PDTdocumented in [...] | | | | | | [place] [address] | | | | | | [phone] | | | | | | | [...]
--- OUTSIDE RECORDS SUMMARY | ~2019-09-27 | XMS | Encounter Summary ---
Demographics + + + | Address | [address] | | | [place] [address] | + + + | Home Phone [...] Providers + +------+ + | Care Support Clerk Name | Role | Phone | [...] Insomnia; Need for | | | | [place], | | influenza | | | | [place] [address] | | vaccination | | | | [phone] | | | +--------+---------+ + + + [...] Maxim Delgado. Insomnia She continues to have mash tub cooker awakenings. I think this is in part [...] before bedtime. Need for influenza vaccination - [place] FLU VACCINE =>3YO PRESERVATIVE FREE IM 30 minutes were spent with Ms. Malik with greater than 50% spent [facility]. Return to clinic in 4 [...] [place] | | | | | | 8766[address] | | | | | | | | +--------+---------+ + + + | 11/24/ | Office | Cardiology | [place], | | | 2019 | Visit | | SINDHU Erickson [address] | | | | | | [place], | | | | | | [place] [address] | | | | | | [phone] | | | | | | | [...]
--- OUTSIDE RECORDS SUMMARY | ~2019-09-27 | XMS | Encounter Summary ---
Demographics + + + | Address | [address] | | | [place] [address] | + + + | Home Phone [...] Team Providers + +------+ + | Care Chest Painting And Sealing Supervisor Name | Role | Phone | [...] | | | [place], [place] | [place] [address] | | | | | | [address] | Phone: | | | | | | Phone: | [phone] | | | | | | [phone] | Fax: | | | | | | Fax: | [phone] | | | | | | [phone] | | +--------+ + + + + [...] | cystitis (Primary | | | | [place], [place] | [place] | Dx) | | | | [address] | [place] [address] | | | | | [phone] | | | | | | | [...] | | | | | | [place] [address] | | | | | | [phone] | | | | | | | | +--------+---------+ + + + | 03/01/ | Office | Pulmonology | Mukul Clark MD | | | 2020 | Visit | | [address] | | | | | | [place] | | | | | | [phone] | | | | | | | [...]
--- OUTSIDE RECORDS SUMMARY | ~2019-09-27 | XMS | Encounter Summary ---
Demographics + + + | Address | [address] | | | [place] [address] | + + + | Home Phone [...] Providers + +------+ + | Care Manager Case Name | Role | Phone | + +------+ + PCP | Unavailable | + +------+ + Encounter Details +--------+ + + + + | Date | Type | Department | Care Team | Description | +--------+ + + + + | 06/09/ | Hospital | [facility] | [place], | | | 2009 | Encounter | MED CTR EMERGENCY | Ozzy Kim MD [address] | | | | | [place] [address] | [address] [facility] | | | | | [place], [place] | [place] [address] | | | | | [address] | [phone] | | | | | [phone] | | | +--------+ + + + [...] [place] | | | | | | [address] | | | | | | | | +--------+---------+ + + + | 11/24/ | Office | Cardiology | [place], | | | 2020 | Visit | | SINDHU Erickson [address] | | | | | | [place] | | | | | | [place] [address] | | | | | | [phone] | | | | | | | | +--------+---------+ + + + | 03/01/ | Office | Pulmonology | Mukul Clark MD | | | 2020 | Visit | | [address] | | | | | | [place] | | | | | | [address] | | | | | | | | +--------+---------+ + + + documented as of this encounter Visit Diagnoses Not on filedocumented in this encounter"
--- OUTSIDE RECORDS SUMMARY | ~2019-09-27 | XMS | Encounter Summary ---
Demographics + + + | Address | [address] | | | [place] [address] | + + + | Home Phone [...] Providers + +------+ + | Care Regional Psychiatric Director Name | Role | Phone | [...] | (obstructive | [address] | [place] | | | | | sleep | [place] | [place], | | | | | apnea) | [place] | [place] [address] | | | | | J44.9 | [address] | Phone: | | | | | (ICD-10-CM) | Phone: | [phone] | | | | | - 496 | [phone] | Fax: | | | | | (ICD-9-CM) - | Fax: | [phone] | | | | | Chronic | [phone] | | | | | | obstructive | | | | | | | pulmonary | | | | | | | disease, | | | | | | | unspecified | | | | | | | COPD type | | | | | | | (HCC | | | | | | | Procedures | | | | | | | [place] POLYSOM | | | | | | | 6/>YRS SLEEP | | | | | | | W/CPAP 4/> | | | | | | | ADDL ALESSIA | | | | | | | ATTND [place] | | | | | | | [...] + + | 04/28/ | Hospital | [facility] | Meghan Garcia MD | GARRY (obstructive | | 2019 - | Encounter | MED CTR SLEEP | [address] [facility] | sleep apnea); | | | | CENTER [address] | [place] | Chronic obstructive | | 04/29/ | | [place] | [address] | pulmonary disease, | | 2019 | | [address] | | unspecified COPD | | | | [phone] | | type (HCC) | +--------+ + [...] | | | | | order to [facility]. | | | | | [...] [facility]. 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 She says since she stopped using her [...] the notes from Dr. Thalia addison in [place], [place]. It indicates that patient had CPAP [...] this chart may have been created with Orthopaedic Synergy voice recognition software. Occasi onal wrong-word or [...] | | | | | | [place] [address] | | | | | | [phone] | | | | | | | | +--------+---------+ + + + | 03/01/ | Office | Pulmonology | Mukul Clark MD | | | 2020 | Visit | | [address] | | | | | | [place] | | | | | | [address] | | | | | | | [...] [facility] | | | [place] [address] Positive Airway | | | Pressure Titration [...] machine. She has tried to get her Toobla to add the | | | connection [...] her COPD through her | | | laboratory coordinator.She says since she stopped using her bilevel [...] reviewed the notes from Dr. Alarcon in [place], [place]. | | | It indicates that [...] have | | | been created with Orthopaedic Synergy voice recognition software. Occasional | | | [...] this chart may have been created with Orthopaedic Synergy voice | | |recognition software. Occasional wrong-word [...] Meghan Garcia MD - 04/30/2018 9:53 AM [facility] | | [place], [place] [address]Ofwbfnmx Airway Pressure Titration | | Report on [...] machine. She has tried to get her Toobla to | | add the connection part for oxygen to her machine, but it has not happened. Now she only | | uses her 3 per minute of supplemental oxygen at night and she has not been using her | | machine for the past few months. She was already on oxygen during the day for her COPD | | through her laboratory coordinator.She says since she stopped using her bilevel [...] reviewed the notes from Dr. Alarcon in [place], [place]. It | | indicates that patient [...] may have been created with | | Orthopaedic Synergy voice recognition software. Occasional wrong-word or | [...]
--- OUTSIDE RECORDS SUMMARY | ~2019-09-27 | XMS | Encounter Summary ---
Demographics + + + | Address | [address] | | | [place] [address] | + + + | Home Phone [...] Team Providers + +------+ + | Care Journal Clerk Name | Role | Phone | [...] [place] | | | | | [address] | [place] [address] | | | | | [phone] | [phone] | | | | | | | [...] | | | | | | [place] [address] | | | | | | [phone] | | | | | | | | +--------+---------+ + + + | 03/01/ | Office | Pulmonology | Muklu Clark MD | | | 2020 | Visit | | [address] | | | | | | [place] | | | | | | [address] | | | | | | | [...] 1.001 - 1.030 | | | | [place], | | | | | | [facility], [...]
--- OUTSIDE RECORDS SUMMARY | ~2019-09-27 | XMS | Encounter Summary ---
Demographics + + + | Address | [address] | | | [place] [address] | + + + | Home Phone [...] Team Providers + +------+ + | Care Abnormal Psychology Teacher Name | Role | Phone | [...] [address] | | | | | [place], | [place], | | | | | [place] [address] | [place] [address] | | | | | [phone] | [phone] | | | | | | | [...] | | | | | | [place] [address] | | | | | | [phone] | | | | | | | | +--------+---------+ + + + | 03/01/ | Office | Pulmonology | Mukul Clark MD | | | 2020 | Visit | | [address] | | | | | | [place] | | | | | | [address] | | | | | | | | +--------+---------+ + + + documented as of this encounter Visit Diagnoses Not on filedocumented in this encounter"
--- OUTSIDE RECORDS SUMMARY | ~2019-09-27 | XMS | Encounter Summary ---
Demographics + + + | Address | [address] | | | [place] [address] | + + + | Home Phone [...] Providers + +------+ + | Care Superintendent Menagerie Name | Role | Phone | + [...] + + | 06/18/ | Office | [facility] | eKvin Sandoval, | COPD (chronic | | 2013 | Visit | PULMONARY [address] | MD [address] | obstructive | | | | [place], | [place], [place] | pulmonary disease) | | | | [place] [address] | [address] | (Primary Dx); GARRY | | | | [phone] | | (obstructive sleep | | | [...] is a 48 y.o. female patient of [facility] here today for eval uation of [...] another prednisone taper. On conversations occurred in [facility] office. The patient was socially seen in [...] (HCC) 10/28/2012 Overview: Managed by [facility] along with hypothyroidism Osteoarthritis hay Past Surgical History Past Surgical History Procedure Date Hammertoe repair right sided Hiatal hernia repair Hiatal hernia Kirk and bso Ovarian cysts, not cancer Colonoscopy 03/2010 Colonoscopy [facility] Family History: Family History Problem Relation [...] months. Please send order to [facility] Disp: 1 each, Rfl: 0 Respiratory Therapy Supplies MISC, Change CPAP back to 11-14 cm H2O. All necessary supplies . No oxygen bleed in. Diagnosis Code(s)327.23. Length of Need: Lifetime. Please send order t [facility]. This is not a [...] [place] | | | | | | [address] | | | | | | | | +--------+---------+ + + + | 11/24/ | Office | Cardiology | [place], | | | 2019 | Visit | | SINDHU Erickson [address] | | | | | | [place] | | | | | | [place] [address] | | | | | | [phone] | | | | | | | | +--------+---------+ + + + | 03/01/ | Office | Pulmonology | Mukul Clark MD | | | 2020 | Visit | | [address] | | | | | | [place] | | | | | | [address] | | | | | | | [...] + | MISCELLANEOUS LAB | | | [phone] | + +---------+ + + | MISCELANIOUS LAB | | | [phone] | + +---------+ + + documented in [...]
--- OUTSIDE RECORDS SUMMARY | ~2019-09-27 | XMS | Encounter Summary ---
Demographics + + + | Address | [address] | | | [place] [address] | + + + | Home Phone [...] Team Providers + +------+ + | Care Mill Stenciler Name | Role | Phone | + +------+ + | Juan Cherry DO | PCP | | + +------+ + Reason for Visit +--------+--------+ + | Reason | Onset | Comments | | | Date | | +--------+--------+ + | Other | /03/ | | | | 2018 | | +--------+--------+ + Encounter Details +--------+ + + + + | Date | Type | Department | Care Team | Description | +--------+ + + + + | 05/27/ | Telephone | [facility] [place] [facility] | Andriy Weber | Leora | | 2018 | | [address] | MD [address] | | | | | [place] | [place] | | | | | [address] | [place] [address] | | | | | [phone] | [phone] | | | | | | | [...] Telephone Encounter - Nancy Dalal CMA - 05/27/2017 9:51 AM PDTSpoke to Rosario. She wa s not able to urinate at all from 1 am to 6 am this morning. She is able to go fine now and is getting better. She has an appt to discuss dilatation 06/02/17. elephone Encounter - Nancy Dalal CMA - 05/28/19 9:45 AM PDTLeft message to call backElectronically signed by Nancy Dalal CMA at 2017 9:46 AM PDTTelephone Encounter - Cori Humphries - 05/27/2017 9:37 AM PDTPatient woul d like nurse to call back regarding not being able to void this morning. Almost went to ER. Please advise. [phone] signed by Cori Humphries at 05/27/2017 9:40 AM PD Tdocumented in this encounter Plan of Treatment [...] [place] | | | | | | [address] | | | | | | | | +--------+---------+ + + + | 11/24/ | Office | Cardiology | [place], | | | 2019 | Visit | | SINDHU Erickson [address] | | | | | | [place], | | | | | | [place] [address] | | | | | | [phone] | | | | | | | | +--------+---------+ + + + | 03/01/ | Office | Pulmonology | Mukul Clark MD | | | 2020 | Visit | | [address] | | | | | | [place] | | | | | | [address] | | | | | | | | +--------+---------+ + + + documented as of this encounter Visit Diagnoses Not on filedocumented in this encounter"
--- OUTSIDE RECORDS SUMMARY | ~2019-09-27 | XMS | Encounter Summary ---
Demographics + + + | Address | [address] | | | [place] [address] | + + + | Home Phone [...] + +------+ + | Care Director Of Consumer Marketing Name | Role | Phone | + [...] | | | | [facility] | [address] | [address] | | | | | EXERCISE | [place], | [place] | | | | | | [place] [address] | [place], [place] | | | | | | Phone: | [address] | | | | | | [phone] | Phone: | | | | | | Fax: | [phone] | | | | | | [phone] | Fax: | | | | | | | [phone] | +--------+--------+ + + + + Encounter Details +--------+---------+ + + + | Date | Type | Department | Care Team | Description | +--------+---------+ + + + | 07/23/ | Office | [facility] | Jared Mcdonough, | Chronic obstructive | | 2017 | Visit | MED CTR CARDIAC | MD Migdalia King | pulmonary disease, | | | | REHAB[facility]ATION [address] [place], | unspecified COPD | | | | [address] [place] | [place] [address] | type (HCC) (Primary | | | | [place] [address] | [phone] | Dx); Mild persistent | | | | [phone] | | asthma without | | | [...] | | | | | | [place] [address] | | | | | | [phone] | | | | | | | | +--------+---------+ + + + | 03/01/ | Office | Pulmonology | Mukul Clark MD | | | 2020 | Visit | | [address] | | | | | | [place] | | | | | | [address] | | | | | | | [...]
--- OUTSIDE RECORDS SUMMARY | ~2019-09-27 | XMS | Encounter Summary ---
Demographics + + + | Address | [address] | | | [place] [address] | + + + | Home Phone [...] Team Providers + +------+ + | Care Boat Cleaner Name | Role | Phone | [...] | | | | CLINIC [address] | [place] | Dx) | | | | [place] | [place] [address] | | | | | [address] | [phone] | | | | | [phone] | | | +--------+ + + + [...] [place] | | | | | | [address] | | | | | | | | +--------+---------+ + + + | 11/24/ | Office | Cardiology | [place], | | | 2019 | Visit | | SINDHU Erickson [address] | | | | | | [place] | | | | | | [place] [address] | | | | | | [phone] | | | | | | | | +--------+---------+ + + + | 03/01/ | Office | Pulmonology | Mukul Clark MD | | | 2020 | Visit | | [address] | | | | | | [place] | | | | | | [address] | | | | | | | [...] [address] | [place] | [phone] | | [facility] | | [address] | | | - LABORATORY | | [...] + | [facility] | [address] | [place] | [phone] | | [facility] | | [address] | | | - LABORATORY | | [...] [address] | [place] | [phone] | | [facility] | | [address] | | | - LABORATORY | | [...] + | [facility] | [address] | [place] | [phone] | | [facility] | | [address] | | | - LABORATORY | | [...] | | | | mg/dL | [facility] | | | | | | MEDICAL | | | | | | CENTER - | | | | | | LABORATORY | | + + + + + + | eGFR, | >60Comment: GLOMERULAR | >=60 | [facility] | | | non- | FILTRATION | mL/min/1.73m2 | [facility] | | | [place] | RATE,ESTIMATED | | MEDICAL | | | | mL/min/1.58q5Pcjh than | | CENTER - | | [...] | | | | | mg/dL | [facility] | | | | | | MEDICAL | | | | | | CENTER - | | | | | | LABORATORY | | + + + + + + | BUN/Creatin | 14.3 | | [facility] | | | ine Ratio | | | [facility] | | | | | | [...] [address] | [place] | [phone] | | [facility] | | [address] | | | - LABORATORY | | | | + + + + + documented in this encounter Visit Diagnoses + + | Diagnosis | + + | Preoperative clearance - Primary Preoperative examination, unspecified | + + documented in this encounter"
--- OUTSIDE RECORDS SUMMARY | ~2019-09-27 | XMS | Encounter Summary ---
Demographics + + + | Address | [address] | | | [place] [address] | + + + | Home Phone [...] Team Providers + +------+ + | Care Rubbing Bed Operator Name | Role | Phone | [...] Clinical | [facility] | iBshop Hoffman, | Pyuria (Primary Dx) | | 2018 | Support | [address] | MD [address] | | | | | [place] | [place] | | | | | [address] | [address] | | | | | [phone] | | | +--------+ + + + [...] for evaluation. Urine will be sent to [facility] since it was positive for nitrites. documented [...] [place] | | | | | | [address] | | | | | | | | +--------+---------+ + + + | 11/24/ | Office | Cardiology | [place], | | | 2019 | Visit | | SINDHU Erickson [address] | | | | | | [place], | | | | | | [place] [address] | | | | | | [phone] | | | | | | | | +--------+---------+ + + + | 03/01/ | Office | Pulmonology | Mukul Clark MD | | | 2020 | Visit | | [address] | | | | | | [place] | | | | | | [address] | | | | | | | [...] [address] | [place] | [phone] | | [facility] | | [address] | | | - LABORATORY | | | | + + + + + POCT Urinalysis Dipstick Automated (07/28/2017 2:51 PM PDT) + + + + + + | Component | Value | Ref Range | Performed | Pathologist | | | | | At | Signature | + + + + + + | Color, UA, | [place] (A) | Yellow, Light | | | [...]
--- OUTSIDE RECORDS SUMMARY | ~2019-09-27 | XMS | Encounter Summary ---
Demographics + + + | Address | [address] | | | [place] [address] | + + + | Home Phone [...] Providers + +------+ + | Care Field Agent Name | Role | Phone | + +------+ + | Juan Cherry DO | PCP | | + +------+ + Encounter Details +--------+ + + + + | Date | Type | Department | Care Team | Description | +--------+ + + + + | 09/09/ | Hospital | [facility] | Conversion | Pain | | 2015 | Encounter | CONVERSION [address] | Transaction, | | | | | [address] | Provider Unknown | | | | | [place], [place] | [phone] | | | | | [address] | | | | | | [phone] | | | +--------+ + + + [...] [place] | | | | | | [address] | | | | | | | | +--------+---------+ + + + | 11/24/ | Office | Cardiology | [place], | | | 2019 | Visit | | SINDHU Erickson [address] | | | | | | [place] | | | | | | [place] [address] | | | | | | [phone] | | | | | | | | +--------+---------+ + + + | 03/01/ | Office | Pulmonology | Mukul Clark MD | | | 2020 | Visit | | [address] | | | | | | [place] | | | | | | [address] | | | | | | | [...]
--- OUTSIDE RECORDS SUMMARY | ~2019-09-27 | XMS | Encounter Summary ---
Demographics + + + | Address | [address] | | | [place] [address] | + + + | Home Phone [...] Providers + +------+ + | Care Medical Planner Name | Role | Phone | [...] + + | 04/27/ | Office | [facility] | Off[place], | COPD (chronic | | 2013 | Visit | PULMONARY [address] | Loreta Alonso MD | obstructive | | | | [place], | | pulmonary disease) | | | | [place] [address] | | (Primary Dx); [place] | | | | [phone] | | (obstructive sleep | | | [...] MD [place] Pulmonary and Critical Care [facility] [place], [address] [facility] Rosario Malik is a 48 y.o. female [...] us as she had to go to [place] for evaluati on, but then apparently did [...] cysts, not cancer Colonoscopy 03/2010 Colonoscopy 1996 [facility] Social History: History Social History Marital Status: Single Spouse Name: N/A Number of Children: 1 Years of Education: 13 Occupational History [employer] Social History Main Topics Smoking status: [...] days. 30 tablet 0 Respiratory Therapy Supplies [facility] Incentive spirometer. Please provide instructions in use. Dx: 848.8 MADELEINE: 3 months 1 each 99 Respiratory Therapy Supplies [facility] Please provide patient with necessary [...] Data: CPAP Data: Dates: 03/12/13-04/10/13 Machine type: KitOrderMed S9 auto set Home Health Company: [employer] CPAP Pressure: 11-14 cmH2O Median Titrated Pressure: [...] [facility] to us so [...] made to ensure accuracy; however, inadvertent computerized materials associate errors may be pre sent. documented in [...] | | | | | | [place] [address] | | | | | | [phone] | | | | | | | | +--------+---------+ + + + | 03/01/ | Office | Pulmonology | Mukul Clark MD | | | 2020 | Visit | | [address] | | | | | | [place] | | | | | | [address] | | | | | | | [...]
--- OUTSIDE RECORDS SUMMARY | ~2019-09-27 | XMS | Encounter Summary ---
Demographics + + + | Address | [address] | | | [place] [address] | + + + | Home Phone [...] Providers + +------+ + | Care Java User Interface Developer Name | Role | Phone | + +------+ + | Juan Cherry DO | PCP | | + +------+ + Encounter Details +--------+ + + + + | Date | Type | Department | Care Team | Description | +--------+ + + + + | 08/05/ | Hospital | [facility] | Kevin Sandoval, | Chronic airway | | 2013 | Encounter | MED CTR PULMONARY | MD [address] | obstruction, not | | | | FUNCTION [address] | [place], [place] | elsewhere classified | | | | [place], | [address] | (HCC) | | | | [place] [address] | | | | | | [phone] | | | +--------+ + + + [...] [place] | | | | | | [address] | | | | | | | | +--------+---------+ + + + | 11/24/ | Office | Cardiology | [place], | | | 2019 | Visit | | SINDHU Erickson [address] | | | | | | [place], | | | | | | [place] [address] | | | | | | [phone] | | | | | | | | +--------+---------+ + + + | 03/01/ | Office | Pulmonology | Mukul Clark MD | | | 2020 | Visit | | [address] | | | | | | [place] | | | | | | [address] | | | | | | | [...]
--- OUTSIDE RECORDS SUMMARY | ~2019-09-27 | XMS | Encounter Summary ---
Demographics + + + | Address | [address] | | | [place] [address] | + + + | Home Phone [...] Providers + +------+ + | Care Forest Resource Specialist Name | Role | Phone | + +------+ + | Yong Patel DO | PCP | | + +------+ + Reason for Visit + + + | Reason | Comments | + + + | Tachycardia | | + + + Encounter Details +--------+ + + + + | Date | Type | Department | Care Team | Description | +--------+ + + + + | 09/13/ | Emergency | [facility] | Tom Clarke, | Tachycardia (Primary | | 2018 | | MED CTR EMERGENCY | MD [address] | Dx); Hypokalemia | | | | CENTER [address] | [place] | | | | | [place] | [address] | | | | | [address] | | | | | | [phone] | | | +--------+ + + + [...] sent through Care Everywhere.Hypokalemia (En glish)Tachycardia, Understanding (Georgian)documented in this encounter Medications at Time of [...] documented as of this encounter ED Notes Tom Clarke MD - 09/13/2017 7:36 AM PDTDictated Tom Clarke MD 09/13/17 0736 om Clarke MD - 09/13/2017 7:36 AM PDT [address] [address] EMERGENCY ROOM REPORT TOM CLARKE MD Patient: JADYN SCHMITZ Admitting: MR #: [id number] LOC: PT TYPE: Adm Date: 09/13/2017 : 1965 CHIEF COMPLAINT: Racing heartbeat. HISTORY OF PRESENT ILLNESS: The patient is a 52-year-old female who states this morning she had a racing heart rate up to 200. She felt a little bit dizzy and lightheaded. She states this has happened to her multiple times in the past. It went away and shortly after started, but was not sure what to do, so she came to the ER. She had no fever, cough, chills, sweats, nausea, vomiting, or other associated symptoms. She did get a little bit short of breath going fast. PAST MEDICAL HISTORY: Significant for hypothyroidism, diverticulitis, depression, anxiety, GERD, COPD, adrenal insufficiency, diverticulosis, emphysema, migraines. SOCIAL HISTORY: Smokes. REVIEW OF SYSTEMS: All systems reviewed were negative except as noted in HPI. PHYSICAL EXAMINATION: GENERAL: A 52-year-old female in no apparent distress. VITAL SIGNS: Pulse 73, respirations 15, blood 106/42, saturations 95 percent on room air. HEENT: Pupils equally round and reactive to light. Mucous membranes are moist. Nasal passages are clear. Trachea is midline. CHEST: Lungs are clear to auscultation bilaterally. No rales, no wheezes. CARDIOVASCULAR: Rate and rhythm is regular. ABDOMEN: Nontender, nondistended. EXTREMITIES: No edema. SKIN: No rash. EMERGENCY DEPARTMENT COURSE AND STUDIES: She had an EKG done. EKG shows a sinus tachycardia with a rate of 102. RI 94 and QRS is 68. There are no ST or T-wave changes consistent with ischemia. She had blood work done in the emergency department. CBC was normal. Basic metabolic panel was significant for potassium of 3.0, glucose of 119, troponin of 1, and digoxin was 0.6. Chest x-ray was negative for pneumonia, pneumothorax, wide mediastinum, pleural effusion, or other cause of her symptoms. ASSESSMENT: This is a 52-year-old female who had an episode of tachycardia and she has a history of the same. She is presently taking digoxin, but sounds like she might have missed some doses. She was encouraged to take her digoxin as prescribed. She also was given a couple doses of potassium because of her hypokalemia. She will follow up with her licensed nurse practitioner. She has had no further symptoms. She is comfortable with this plan. DIAGNOSIS: Tachycardia, resolved. DISPOSITION: Home. TOM CLARKE MD Dictated by TOM CLARKE MD 09/13/2017 07:36:25 Transcribed on 09/13/2017 08:12:42 by job# [id number] Confirmation #: [id number] cc: YONG PATEL DO Surjit Fry R N - 09/13/2017 6:23 AM PDTPt reports rapid HR up to 215 after climbing flight of stairs thi s AM. documented in this encounter Plan of Treatment [...] | | | | | | [place] [address] | | | | | | [phone] | | | | | | | | +--------+---------+ + + + | 03/01/ | Office | Pulmonology | Mukul Clark MD | | | 2020 | Visit | | [address] | | | | | | [place] | | | | | | [address] | | | | | | | [...] | | n - | | | 07/21/ | | | 2018 | | | 6:21 | | | [...] W?MRN: | | | | | | [id number] | | | [id number] | | | his | | | [...] (L) | 0.8 - 2.0 ng/mL | [facility] | | | level | | | [...] [address] | [place] | [phone] | | [facility] | | [address] | | | - LABORATORY | | [...] | | | | | | [employer] [place] [employer] | | | | | [...] + | [facility] | [address] | [place] | [phone] | | [facility] | | [address] | | | - LABORATORY | | [...] | | | | | mmol/L | [facility] | | | | | | [...] non- | FILTRATION | mL/min/1.73m2 | [facility] | | | [place] | RATE,ESTIMATED | | MEDICAL | | | | mL/min/1.72t1Fmas than | | CENTER - | | [...] [address] | [place] | [phone] | | [facility] | | [address] | | | - LABORATORY | | | | + + + + + CBC with Differential (09/13/2017 6:40 AM PDT) + + + + + + | Component | Value | Ref Range | Performed | Pathologist | | | | | At | Signature | + + + + + + | White Blood | 10.6 | 4.0 - 11.0 K/uL [...] ST. | [address] | [place], [place] | [phone] | | [facility] | | [address] | | | - LABORATORY | | [...] short | | | | | | RI though P waves are | | | [...] | | | | RAFA WELLS MD ([id number]) | | | | | | on [...]
--- OUTSIDE RECORDS SUMMARY | ~2019-09-27 | XMS | Encounter Summary ---
Demographics + + + | Address | [address] | | | [place] [address] | + + + | Home Phone [...] + + | 09/07/ | Office | [facility] [place] [place] | [place], | COPD exacerbation | | 2012 | Visit | PULMONARY [address] | Loreta Alonso MD | ([facility]) (Primary Dx); | | | | [place], | | Sleep apnea; | | | | [place] [address] | | Allergic rhinitis; | | | | [phone] | | Insomnia | +--------+---------+ + + [...] still having dizziness, let Dr. Cherry know. Data Entry Specialist at [facility]: Ruben Tucker MD documented in this encounter Progress Notes Loreta London MD - 09/07/2012 10:42 AM PDTFormatting of this note might be differe nt from the original. Sleep Follow Up MD Yandel Rasheeda [place] Pulmonary and Critical Care [facility] [address] [facility] [place], [address] HPI Rosario Malik is a 47 y.o. female patient of Juan Cherry here today for follow up of obstructive sleep apnea. She notes that she has been wearing their CPAP. Their compliance has been good. They are n ot having issues with their CPAP machine such as the sensation of excessive pressure or a po brandno fitting mask. She felt like it was [...] planning on her d ad driving to [place]. 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 Please send orde r to [facility]. This is not a new order, [...] AHI: 47.1 (complex sleep apnea) Machine type: Publimind S9 auto CPAP Home Health Company: [employer] CPAP Pressure: 11-14 cmH2O Median Titrated Pressure: [...] to clinic not scheduled given move to [place], or sooner with concerns. CC: Juan Cherry Portions of this report were transcribed using voice recognition software. Every effort wa s made to ensure accuracy; however, inadvertent computerized kaiako kohanga reo errors may be pre sent. documented in [...] [place] | | | | | | [address] | | | | | | | | +--------+---------+ + + + | 11/24/ | Office | Cardiology | [place], | | | 2019 | Visit | | SINDHU Erickson [address] | | | | | | [place], | | | | | | [place] [address] | | | | | | [phone] | | | | | | | | +--------+---------+ + + + | 03/01/ | Office | Pulmonology | Mukul Clark MD | | | 2020 | Visit | | [address] | | | | | | [place] | | | | | | [address] | | | | | | | [...]
--- OUTSIDE RECORDS SUMMARY | ~2019-09-27 | XMS | Encounter Summary ---
Demographics + + + | Address | [address] | | | [place] [address] | + + + | Home Phone [...] Team Providers + +------+ + | Care Furnishings Conservator Name | Role | Phone | + [...] + + | 05/06/ | Office | [facility] | [place], | Palpitations | | 2018 | Visit | CARDIOLOGY [address] | SINDHU Erickson [address] | (Primary Dx); Chest | | | | [place], | [place], | pain, unspecified | | | | [place] [address] | [place] [address] | type; Syncope, | | | | [phone] | [phone] | unspecified syncope | | | | [...] was seen at the ED of [facility] 3 weeks ago and again 1 [...] is in a class I-II o f [employer] functional class. There is no [...] v entricular function done at the [facility]. LVEF 78%. C. Holter Monitor 08/16/13 [...] this chart may have been created with [employer] voice recognition software. Occasi onal wrong-word or [...] 2019 | Visit | | [address] [facility] | | | | | | [place] | | | | | | [address] | | | | | | | | +--------+---------+ + + + | 11/24/ | Office | Cardiology | [place], | | | 2019 | Visit | | SINDHU Erickson [address] | | | | | | [place], | | | | | | [place] [address] | | | | | | [phone] | | | | | | | | +--------+---------+ + + + | 03/01/ | Office | Pulmonology | Mukul Clark MD | | | 2020 | Visit | | [address] | | | | | | [place] | | | | | | [address] | | | | | | | [...] MD | | | | | | ([id number]) on 05/06/2017 | | | | | [...]
--- OUTSIDE RECORDS SUMMARY | ~2019-09-27 | XMS | Encounter Summary ---
Demographics + + + | Address | [address] | | | [place] [address] | + + + | Home Phone [...] Team Providers + +------+ + | Care Overhead Distribution Engineer Name | Role | Phone | [...] | | | | [facility] | [address] | [address] | | | | | EXERCISE | [place], | [place] | | | | | | [place] [address] | [place], [place] | | | | | | Phone: | [address] | | | | | | [phone] | Phone: | | | | | | Fax: | [phone] | | | | | | [phone] | Fax: | | | | | | | [phone] | +--------+--------+ + + + + Encounter Details +--------+---------+ + + + | Date | Type | Department | Care Team | Description | +--------+---------+ + + + | 07/04/ | Office | [facility] | Jared Mcdonough, | Chronic obstructive | | 2017 | Visit | MED CTR CARDIAC | MD Migdalia King | pulmonary disease, | | | | REHABILITATION [address] [place], | unspecified COPD | | | | [place] | [place] [address] | type (HCC) (Primary | | | | [place] [address] | [phone] | Dx); Mild persistent | | | | [phone] | | asthma without | | | [...] | | | | | | [place] [address] | | | | | | [phone] | | | | | | | | +--------+---------+ + + + | 03/01/ | Office | Pulmonology | Mukul Clark MD | | | 2020 | Visit | | [address] | | | | | | [place] | | | | | | [address] | | | | | | | [...]
--- OUTSIDE RECORDS SUMMARY | ~2019-09-27 | XMS | Encounter Summary ---
Demographics + + + | Address | [address] | | | [place] [address] | + + + | Home Phone [...] Providers + +------+ + | Care Office Employee Name | Role | Phone | + [...] | | not | [place], | [place] | | | | | elsewhere | [place] [address] | [place], [place] | | | | | classified | Phone: | [address] | | | | | Procedures | [phone] | Phone: | | | | | [place] [facility] | Fax: | [phone] | | | | | REHAB W | [phone] | Fax: | | | | | EXER | | [phone] | +--------+--------+ + + + + Encounter Details +--------+---------+ + + + | Date | Type | Department | Care Team | Description | +--------+---------+ + + + | 12/14/ | Office | [facility] | Sandoval, Kevin, | COPD (chronic | | 2013 | Visit | MED CTR CARDIAC | MD [address] | obstructive | | | | REHABILITATION [address] | [place] | pulmonary disease) | | | | [address] [place] | [address] | ([facility]) (Primary Dx) | | | | [place] [address] | | | | | | [phone] | Mary Nunez RN | | +--------+---------+ [...] hip pain. She had m ild dyspnea 2/. She has a history of tachycardia and is wearing a Sylvester of [employer] which she will turn in sekou . Today, sinus rhythm 90-98 bpm without ectopy. [...] reps. Her PFT doesn't qualify her for [place], so we will monitor her as a [...] | | | | | | [place] [address] | | | | | | [phone] | | | | | | | | +--------+---------+ + + + | 03/01/ | Office | Pulmonology | Mukul Clark MD | | | 2020 | Visit | | [address] | | | | | | [place] | | | | | | [phone] | | | | | | | | +--------+---------+ + + + documented as of this encounter Visit Diagnoses + + | Diagnosis | + + | COPD (chronic obstructive pulmonary disease) (HCC) - Primary Chronic airway | | obstruction, not elsewhere classified | + + documented in this encounter
--- OUTSIDE RECORDS SUMMARY | ~2019-09-27 | XMS | Encounter Summary ---
Demographics + + + | Address | [address] | | | [place] [address] | + + + | Home Phone [...] Team Providers + +------+ + | Care Dean Of Faculty Name | Role | Phone | [...] | with brief | [address] | | | | n | loss of | [address] | [place], | | | | | consciousnes | [place], | [place] [address] | | | | | s | [place] [address] | Phone: | | | | | Post-concuss | Phone: | [phone] | | | | | ion vertigo | [phone] | Fax: | | | | | [phone] | Fax: | [phone] | | | | | (ICD-10-CM) | [phone] | | | | | | - [...] + + | 05/27/ | Office | [facility] | Aaron Rodriguez, | Dizziness (Primary | | 2017 | Visit | MED CTR THERAPY PT | MD [address] | Dx); Impaired | | | | OP [address] | [place] | mobility and | | | | [place] | [phone] | activities of daily | | | | [address] | | living; Concussion | | | | [phone] | Lakeshia Cleary, PT | with brief (less | | | | | [address] | than one hour) loss | | | | | [place] | of consciousness; | | | | | [address] | Intractable acute | | | | [...] might be different from t he original. [facility] CTR THERAPY PT OP [address] [place] [address] Physical Therapy Daily Treatment Note Date: 05/27/2016 [...] Rehab Precautions Office Visit from 05/01/2016 in [facility] CTR THERAPY PT OP Rehab [...] [place] | | | | | | [id number] | | | | | | | | +--------+---------+ + + + | 11/24/ | Office | Cardiology | [place], | | | 2019 | Visit | | SINDHU Erickson [address] | | | | | | [place] | | | | | | [place] [address] | | | | | | [phone] | | | | | | | | +--------+---------+ + + + | 03/01/ | Office | Pulmonology | Mukul Clark MD | | | 2020 | Visit | | [address] | | | | | | [place] | | | | | | [address] | | | | | | | [...]
--- OUTSIDE RECORDS SUMMARY | ~2019-09-27 | XMS | Encounter Summary ---
Demographics + + + | Address | [address] | | | [place] [address] | + + + | Home Phone [...] Providers + +------+ + | Care Network Diagnostic Support Specialist Name | Role | Phone [...] [place] | | | | | [address] | [place] [address] | | | | | [phone] | [phone] | | | | | | | [...] [place] | | | | | | [address] | | | | | | | | +--------+---------+ + + + | 11/24/ | Office | Cardiology | [place], | | | 2019 | Visit | | SINDHU Erickson [address] | | | | | | [place], | | | | | | [place] [address] | | | | | | [phone] | | | | | | | | +--------+---------+ + + + | 03/01/ | Office | Pulmonology | Mukul Clark MD | | | 2020 | Visit | | [address] | | | | | | [place] | | | | | | [phone] | | | | | | | | +--------+---------+ + + + documented as of this encounter Visit Diagnoses Not on filedocumented in this encounter"
--- OUTSIDE RECORDS SUMMARY | ~2019-09-27 | XMS | Encounter Summary ---
Demographics + + + | Address | [address] | | | [place] [address] | + + + | Home Phone [...] Team Providers + +------+ + | Care Etl Application Developer Name | Role | Phone | + +------+ + | Juan Cherry DO | PCP | | + +------+ + Encounter Details +--------+ + + + + | Date | Type | Department | Care Team | Description | +--------+ + + + + | 11/21/ | Hospital | [facility] | Andriy Weber | Interstitial | | 2016 | Encounter | MED CTR OR INTRA OP | MD [address] | cystitis (chronic) | | | | [address] | [address] [place] | without hematuria | | | | [place], [place] | [place] [address] | (Primary Dx) | | | | [address] | [phone] | | | | | [phone] | | | +--------+ + + + [...] (the anesthesiologist will discuss these with you) 7933-3162 [facility]. [address] [place] [address], [place] [address]. All righ ts reserved. This information is [...] | | | order to [facility]. | | | | | [...] 0 | 10/13/19 | 08/23/201 | | Acijenxpez-SNJY-Tveb | mouth as needed. | | | 16 | 7 | | -Cod [id number] MG | | | | | | [...] Andriy Weber MD - 11/22/2015 7:26 AM [facility] SURGICAL INTERIM HISTORY AND PHYSICAL [...] signed by: Andriy Weber, 11/22/2015 7:27 [facility] bar MD - 11/09/2015 10:59 AM PDTFormatting [...] 25G X 1-1/2" 3 ML MISC 0 Vjswowofxl-FFYO-Mfmf-Cod 22-339-39-30 MG CAPS 0 cetirizine (ZYRTEC) 10 mg [...] months. Please send order to [facility]. 1 each 0 Respiratory Therapy Supplies MISC Change CPAP back to 11-14 cm H2O. All necessary suppl ies. No oxygen bleed in. Diagnosis Code(s)327.23. Length of Need: Lifetime. Please send dylan bartholomew to [facility]. This is [...] have not thoroughly proofread this note, and rehabilitation therapy aide erro rs may occur. documented in th is encounter Miscellaneous Notes Op Note - Andriy Weber MD - 11/22/2015 8:19 AM PDTOperative Note Pt. Name/Age/: Rosario Malik 50 y.o. 1965 Med. Record Number: [id number] Date of Operation/Procedure: 11/22/2015 Preoperative Diagnosis: Interstitial cystitis, chronic cystitis Postoperative Diagnosis: Same Surgeon: Andriy Weber MD Air Conditioning Technician(s): None Anesthesia Provider(s): Anesthesiologist: Kevin Worthy MD [...] were applied as per protocol. A 21 [place] [employer] continous flow cystoscope was then placed through the urethra into the bladder, after the urethra was dilated up to 32 [place] in size with Cochran sounds. Thorough cysto scopy was done with [...] Electronically Signed by: Andriy Weber, 11/22/2015 8:19 [facility] documented in th is encounter Plan of [...] [place] | | | | | | [address] | | | | | | | | +--------+---------+ + + + | 11/24/ | Office | Cardiology | [place], | | | 2019 | Visit | | SINDHU Erickson [address] | | | | | | [place], | | | | | | [place] [address] | | | | | | [phone] | | | | | | | | +--------+---------+ + + + | 03/01/ | Office | Pulmonology | Mukul Clark MD | | | 2020 | Visit | | [address] | | | | | | [place] | | | | | | [address] | | | | | | | [...] MEDICAL | | | | | | CORNUCOPIA - | | | | | | LABORATORY | | + +-------+ + + + + + | Specimen | + + | Blood | + + + + + + + | Performing | Address | City/State/Zipcode | Phone Number | | Organization | | | | + + + + + | [facility] | [address] | [place], [place] | [phone] | | [facility] | | [address] | | | - LABORATORY | | [...] chronic mucosal | | | inflammation. JVR:[facility]:C2NR GROSS DESCRIPTION: The specimen is | | | received in three parts. A. The specimen is labeled and | | | designated "Rosario Malik, posterior bladder wall". Received | | | in formalin is one pink colored tissue fragment, it measures 0.25 x | | | 0.4 cm. all into (A1). B. The specimen is labeled and designated | | | "LowellRosario, right bladder wall". Received in formalin is | | | one pink colored tissue fragment, 0.3 x 0.3 cm, all into (B1). C. | | | The specimen is labeled and designated "Rosario Malik, left | | | bladder wall". Received in formalin is one pink colored tissue | | | fragment, it measures 0.3 x 0.3 cm, all into (C1). yt:[facility] | | | MICROSCOPIC EXAMINATION: Histologic sections of all submitted blocks | | | are examined by light microscopy. These findings, together with the | | | gross examination, support the pathologic diagnosis. PERFORMING | | | LABORATORY: Tissue processing and slide preparation were performed by | | | [facility], [address] [address], [place] [address] | | | (Media Promoter: Kale Estrella M.D.; CLIA#: [id number]). | | | Professional interpretation was performed by [facility], | | | [facility], [address] [facility] | | | [place] [address] (Media Promoter: Kale Estrella M.D.; CLIA#: | | | [id number]). Diagnostician: Kale Estrella MD Pathologist | | [...] | | | | | | use [place] 10/325 if ordered. If | | | [...]
--- OUTSIDE RECORDS SUMMARY | ~2019-09-27 | XMS | Encounter Summary ---
Demographics + + + | Address | [address] | | | [place] [address] | + + + | Home Phone [...] Providers + +------+ + | Care Benefits Administrator Name | Role | Phone | [...] + + | 11/06/ | Office | [facility] | [place], | Palpitations | | 2017 | Visit | CARDIOLOGY [address] | SINDHU Erickson [address] | (Primary Dx); | | | | [place], | [place], | Paroxysmal atrial | | | | [place] [address] | [place] [address] | tachycardia (HCC); | | | | [phone] | [phone] | Chest pain, | | | | [...] 2 times daily. She takes this da [facility] Respiratory Therapy Supplies MISC Please provide patient with necessary CPAP supplies ( she did not specify, okay to send order as appropriate) Diagnosis Code(s)327.23 . Length of Need 99 months. Please send order to [facility]. 1 each 0 Respiratory Therapy [...] has shortened Confirmed by DANIEL PAUL, CLAY ([id number]) on 10/16/2016 4:31:30 PM LAB RESULTS reviewed during visit today primarily from [facility]: LIPID Lab Results Component Value Date [...] PLTEX 370 07/11/2014 I reviewed records from [facility] for Holter report on 10/18/2016 which [...] was seen at the ED of [facility] 3 weeks ago and again 1 [...] She is in a class II of [employer] functional class. There is no [...] v entricular function done at the [facility]. LVEF 78%. C. Holter Monitor 08/16/13 [...] this chart may have been created with [employer] voice recognition software. Occasi onal wrong-word or [...] [place] | | | | | | [address] | | | | | | | | +--------+---------+ + + + | 11/24/ | Office | Cardiology | [place], | | | 2019 | Visit | | SINDHU Erickson [address] | | | | | | [place], | | | | | | [place] [address] | | | | | | [phone] | | | | | | | | +--------+---------+ + + + | 03/01/ | Office | Pulmonology | Mukul Clark MD | | | 2020 | Visit | | [address] | | | | | | [place] | | | | | | [address] | | | | | | | [...]
--- OUTSIDE RECORDS SUMMARY | ~2019-09-27 | XMS | Encounter Summary ---
Demographics + + + | Address | [address] | | | [place] [address] | + + + | Home Phone [...] Team Providers + +------+ + | Care Society Reporter Name | Role | Phone | [...] + + | 11/22/ | Emergency | [facility] | Bishop Alatorre, | Acute post-operative | | 2016 | | MED CTR EMERGENCY | [place] [address] | pain (Primary Dx); | | | | CENTER [address] | [place] | Bladder pain | | | | [place] | [address] | | | | | [address] | | | | | | [phone] | | | +--------+ + + + [...] | 0 | 10/13/19 | | | Pbzkyotavm-UBDU-Nhpc | mouth as needed. | | | 16 | 7 | | -Cod [id number] MG | | | | | | [...] documented as of this encounter ED Notes Bishop Alatorre MD - 11/23/2015 7:25 PM PDTFormatting of this note might be different fr om the original. [facility] Emergency Department Encounter Note [address] [place] [address] PCP:Juan Cherry DO [phone] CHIEF COMPLAINT: Chief Complaint Patient presents with Post-op Problem ED Room: ED01/ED01 ED Triage Notes Jackelyn Leong, NAYELI 11/23/2015 19:10 Patient states she had bladder biopsy by Dr. Weber yesterday. She states she began having 9/10 throbbing pain in bladder and urethra last evening that increases with urination and t hat is not responsive to the hydrocodone she was prescribed. Pt states she also began bleed ing, noticing "blood any time I wipe" from midnight to 4am this morning. She states bleedin g has stopped but pain has continued. Pt states Dr. Weber advised her to increase hydrocod one dose and pt states this still isn't improving her pain. Original note by Jackelyn Leong RN at 11/23/2015 19:05 Jackelyn Leong RN 11/23/2015 19:05 Patient states she had bladder biopsy by Dr. Weber yesterday. She states she began having pain in bladder and urethra last evening that is not responsive to the hydrocodone she was prescribed. Pt states she also began bleeding, noticing "blood any time I wipe" from midnig ht to 4am this morning. She states bleeding has stopped but pain has continued. Pt states Dr. Weber advised her to increase hydrocodone dose and pt states this still isn't improving her pain. Addendum to note by Jackelyn Leong RN at 11/23/2015 19:10 HPI Rosario Malik is a 50 y.o. female who presents to the Emergency Department with wors ening post operative pain over the bladder after a recent bladder biopsy. Taking pyridium and then also the pain medication without relief. Now she says the pain is worsening. She has no fevers. Did have some hematuria and she feels like this caused some of her initial p ain but that has not stopped and or at least diminished. PAST MEDICAL & SURGICAL HISTORY Past Medical [...] ([facility]) 10/28/2012 Overview: Managed by [facility] along with hypothyroidism Osteoarthritis Tachycardia Asthma Emphysema Migraine Sleep apnea uses BiPAP Oxygen dependent uses 2.5 liters most of the time Past Surgical History Procedure Laterality Date Hammer toe surgery right sided Hiatal hernia repair Hiatal hernia Kirk and bso Ovarian cysts, not cancer Colonoscopy 03/[address] [facility] Knee surgery right Wrist surgery right Hysterectomy Other surgical history 02/28/2014 [facility] with Radial approach; Laterality: Left; Surgeon: Jared Mcdonough MD; Location: [facility] Tonsillectomy Age 6 Turbt N/A 11/22/2015 Procedure: Cystoscopy, Hydrodistention & Bladder Biopsy; Surgeon: Yinka Melendez; Location: [facility] MAIN OR CURRENT MEDICATIONS Previous Medications ALBUTEROL (PROAIR HFA) 90 MCG/PUFF INHALER Inhale 2 puffs into the lungs every 6 hours as needed for Wheezing or Shortness of Breath. ALBUTEROL-IPRATROPIUM (DUONEB) 2.5-0.5 MG/3 ML SOLN Take 3 mLs by nebulization every 4 hours as needed. B-D 3CC LUER-UEYN SYR 25GX1/2" 25G X 1-1/2" 3 ML MISC PYSCBKXEBJ-UUUM-UYFP-COD [id number] MG CAPS Take 1 capsule by mouth as needed. CETIRIZINE (ZYRTEC) 10 MG TABLET Take 10 mg by mouth Daily. DEXAMETHASONE (DECADRON) 4 MG/ML INJECTION Pt was [...] MG TABLET Take 1 tablet by mouth every 6 hours as needed for Itching for up to 30 days. LEVOTHYROXINE (SYNTHROID, LEVOTHROID) 75 MCG TABLET Take 75 mcg by mouth every morning (before breakfast). METFORMIN (GLUCOPHAGE) 500 MG TABLET Take 500 mg by mouth 2 times daily (with breakfast & dinner). OMEPRAZOLE (PRILOSEC) 20 MG CAPSULE Take 40 mg by mouth 2 times daily. OXYBUTYNIN (DITROPAN) 5 MG TABLET Take 5 mg by mouth 3 times daily. OXYGEN Inhale 2 L into the lungs continuous. 2.5 PHENAZOPYRIDINE (PYRIDIUM) 200 MG TABLET Take 1 tablet by mouth 2 times daily. PREDNISONE (DELTASONE) 10 MG TABLET Take 10 mg by mouth Daily. PROPRANOLOL (INDERAL) 10 MG TABLET Take 10 mg by mouth 2 times daily. She takes this da rigoberto RESPIRATORY THERAPY SUPPLIES [facility] Change CPAP back to 11-14 cm H2O. All necessary suppl ies. No oxygen bleed in. Diagnosis Code(s)327.23. Length of Need: Lifetime. Please send orde r to [facility]. This is not a new order, just a change in settings. RESPIRATORY THERAPY SUPPLIES [facility] Please provide patient with necessary CPAP supplies ( she did not specify, okay to send order as appropriate) Diagnosis Code(s)327.23 . Length of Need 99 months. Please send order to [facility]. ROFLUMILAST (DALIRESP) 500 MCG TABLET Take 1 tablet by mouth Daily. 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 REVIEW OF SYSTEMS Review of Systems Constitutional: Negative for fever and chills. Gastrointestinal: Positive for abdominal pain. Genitourinary: Positive for dysuria, urgency and hematuria. As in history of present illness. A 10 system review was otherwise negative. PHYSICAL EXAM VITAL SIGNS: (first vital signs):Temp: 36.9 C (98.5 F) Pulse: 68 Resp: 16 SpO2: 92 % BP : 108/57 mmHg Constitutional: female patient, No acute distress. Pleasant. Alert and appropriate. HEENT: Atraumatic, PERRL, Oropharynx benign. Neck: Supple with full range of motion. No JVD, lymphadenopathy, or meningismus. Respiratory: Good air movement bilaterally. No wheezes, No, rales. Cardiovascular: Normal S1 S2. Abdomen: Soft, nontender. No rebound, guarding, or masses. Bowel tones normal. No pulsa tile masses Back: No CVA tenderness. No midline thoracic or lumbar spinal tenderness. Extremities: Nontender. No edema, no calf asymmetry. Present distal pulses. Skin: Warm, Dry, No rashes. Capillary refill is brisk <3 seconds and shows good perfusion . Neurologic: Alert & oriented. Cranial nerves II-XII intact. Gait and speech are normal. No focal deficits. Psychiatric: Normal mood, affect and judgement. No evidence of suicidal or homicidal idea tion LABS Results for orders placed or performed during the hospital encounter of 11/22/15 POC Glucose Result Value Ref Range Glucose, POC 101 70-150 mg/dL IMAGING STUDIES (X-Rays interpreted by ED Physician) Recent imaging: Recent Results (from the past 360 hour(s)) XR Chest PA and Lateral Narrative PA AND LATERAL CHEST 11/13/2015 9:51 AM CLINICAL HISTORY: preop clearance COMPARISON: CT abdomen and chest radiograph April 12 and multiple previous radiographs FINDINGS: The cardiomediastinal silhouette and pulmonary vasculature are unremarkable. Hazy reticular opacity at the anterior left base is more pronounced laterally on the frontal view. The lungs are clear elsewhere, without pneumothorax or pleural effusion. The bones and soft tissues are unremarkable. IMPRESSION - 1. MORE PRONOUNCED HAZY RETICULAR OPACITY AT THE LATERAL LEFT BASE, POSSIBLY REFLECTING ATELECTASIS OR DEVELOPING INFILTRATE SUPERIMPOSED ON EPICARDIAL FAT. CONSIDER INTERVAL RADIOGRAPHIC FOLLOW-UP. Dictated and Signed by: Aditya Snyder MD Electronically signed: 11/13/2015 12:14 PM ED COURSE & MEDICAL DECISION MAKING Pertinent Labs & Imaging studies were reviewed along with EMS notes and halfway record s if applicable. (See chart for details) Medications and Allergy list reviewed. Nurses note and old records were reviewed ER course 19:25 - Patient care initiated. After introducing myself to the patient, I performed a car eful history and physical examination. This is a 42-year-old female presenting with postoperative bladder pain. Patient has no as sociated fevers or chills. No other symptoms at this time. We will treat her for her posto perative pain and have her follow-up with her doctor Last Set of Vital Signs: Temp: 36.9 C (98.5 F) Pulse: 68 Resp: 16 SpO2: 92 % BP: 108/57 mmHg FINAL IMPRESSION 1. Acute post-operative pain 2. Bladder pain Disposition: Discharge home Condition: Stable Follow-up Information Schedule an appointment as soon as possible for a visit with Andriy Weber MD. Specialty: Urology Contact information: [address] [place] [address] New Prescriptions OXYCODONE-ACETAMINOPHEN (PERCOCET) 10-325 MG PER TABLET Take 1 tablet by mouth every 6 hours as needed for Pain. Discharge References/Attachments PAIN MANAGEMENT AFTER SURGERY (HEBREW) Portions of this chart may have been created with SendinBlue voice recognition software. Occasi onal wrong-word or sound-alike substitutions may have occurred due to the inherent cárdenas itations of voice recognition software. Please read the chart carefully and recognize, using context, where these substitutions have occurred. Bishop Alatorre MD 11/23/15 1931 documen kelley in this encounter Miscellaneous Notes ED Triage Notes - Jackelyn Leong RN - 11/23/2015 7:03 PM PDTPatient states she had bladder biopsy by Dr. Weber yesterday. She states she began having 9/10 throbbing pain in bladder and urethra last evening that increases with urination and that is not responsive t o the hydrocodone she was prescribed. Pt states she also began bleeding, noticing "blood an y time I wipe" from midnight to 4am this morning. She states bleeding has stopped but pain has continued. Pt states Dr. Weber advised her to increase hydrocodone dose and pt states this still isn't improving her pain.Electronically signed by Jackelyn Leong RN at 7:10 PM PDTdocumented in this encounter Plan of [...] [place] | | | | | | [id number] | | | | | | | | +--------+---------+ + + + | 11/24/ | Office | Cardiology | [place], | | | 2019 | Visit | | SINDHU Erickson [address] | | | | | | [place], | | | | | | [place] [address] | | | | | | [phone] | | | | | | | | +--------+---------+ + + + | 03/01/ | Office | Pulmonology | Mukul Clark MD | | | 2020 | Visit | | [address] | | | | | | [place] | | | | | | [address] | | | | | | | [...] + | ED INFORMATION | Routin | 11/23/2015 | | | | EXCHANGE | e | 6:37 PM | | | | | | [...] | | | | | | Starting [facility] 9/29/16 at 1927 | | | | | | + + + + +------+------+ +---+---+ | | | +---+---+ documented in this encounter
--- OUTSIDE RECORDS SUMMARY | ~2019-09-27 | XMS | Encounter Summary ---
Demographics + + + | Address | [address] | | | [place] [address] | + + + | Home Phone [...] Team Providers + +------+ + | Care Windows Architect Name | Role | Phone | + +------+ + PCP | Unavailable | + +------+ + Encounter Details +--------+ + + + + | Date | Type | Department | Care Team | Description | +--------+ + + + + | 10/09/ | Hospital | [facility] | Avi, Guru Garzon, | | | 2010 - | Encounter | MED CTR EMERGENCY | MD [address] | | | | | CENTER [address] | [facility] [place] | | | 10/10/ | | [place], [place] | [place] [address] | | | 2010 | | [address] | [phone] | | | | | [phone] | | | +--------+ + + + [...] for that by , endocrinology in the [facility]. PAST MEDICAL HISTORY: Asthma. She has known pituitary adenoma, history of gastroesophageal reflux di sease, diverticulosis, hypothyroidism. PAST SURGICAL HISTORY: She has had a hysterectomy, knee surgery, and hernia repair. SOCIAL HISTORY: She smokes. Providing her own history. Denies illicit drug use. MEDICATIONS 1. Ambien 2. Geodon 3. Effexor 4. Tramadol 5. Compazine 6. Multivitamin 7. [place]-3 fish oil 8. Levothyroxine 9. Kirklin 10. Gabapentin 11. Lexapro 12. Cipro 13. [...] seen and examined shortly after arriving in [facility] emergen cy department. History and physical obtained. [...] Guru Cárdenas MD Emergency Medicine JOB #: [id number] EXT JOB #:[id number] <Electronicall y Signed by Guru Cárdenas MD> 10/10/10 780 documented in this encounter Plan of Treatment [...] [place] | | | | | | [address] | | | | | | | | +--------+---------+ + + + | 11/24/ | Office | Cardiology | [place], | | | 2019 | Visit | | SINDHU Erickson [address] | | | | | | [place], | | | | | | [place] [address] | | | | | | [phone] | | | | | | | | +--------+---------+ + + + | 03/01/ | Office | Pulmonology | Mukul Clark MD | | | 2020 | Visit | | [address] | | | | | | [place] | | | | | | [address] | | | | | | | [...] Performed At | + + + | [facility] Diagnostic Imaging Department | [facility] | | [address] [facility] | [facility] | | NONCONTRAST HEAD CT, 2330 HOURS, [...] | | | Transcribed Date/Time: 10/10/2010 11:50 Meter Tester: | | | <Electronically Signed by Elías Cardoso MD> 10/11/10 0821 | | + + + + + | Procedure Note | + + | Reed, Rad Conversion - 04/02/2013 3:36 PM [facility] | | Diagnostic Imaging Department [address] [place] [address] | | NONCONTRAST HEAD CT, 2330 HOURS, [...] 11:33 | |Transcribed Date/Time: 10/10/2010 11:50 | |Meter Tester: | |<Electronically Signed by Elías Cardoso MD> 10/11/10820 | + + + +---------+ + + | Performing | Address | City/State/Zipcode | Phone Number | | Organization | | | | + +---------+ + + | [place] | | | | | [facility] | | | | + +---------+ + + documented in this encounter Visit Diagnoses Not on filedocumented in this encounter"
--- OUTSIDE RECORDS SUMMARY | ~2019-09-27 | XMS | Encounter Summary ---
Demographics + + + | Address | [address] | | | [place] [address] | + + + | Home Phone [...] Providers + +------+ + | Care Gas Singer Name | Role | Phone | [...] + | 07/24/ | Clinical | [facility] UROLOGY | Andriy Weber | Bladder pain | | 2018 | Support | [address] | MD Robert [address] | (Primary Dx) | | | | [place] | [place] | | | | | [address] | [facility] [place] [address] | | | | | [phone] | [phone] | | | | | | | [...] [place] | | | | | | [address] | | | | | | | | +--------+---------+ + + + | 11/24/ | Office | Cardiology | [place], | | | 2019 | Visit | | SINDHU Erickson [address] | | | | | | [place], | | | | | | [place] [address] | | | | | | [phone] | | | | | | | | +--------+---------+ + + + | 03/01/ | Office | Pulmonology | Mukul Clark MD | | | 2020 | Visit | | [address] | | | | | | [place] | | | | | | [address] | | | | | | | [...]
--- OUTSIDE RECORDS SUMMARY | ~2019-09-27 | XMS | Encounter Summary ---
Demographics + + + | Address | [address] | | | [place] [address] | + + + | Home Phone [...] Providers + +------+ + | Care Rotary Swaging Machine Operator Name | Role | Phone [...] + | 06/09/ | Office | [facility] | Kevin Sandoval, | COPD (chronic | | 2015 | Visit | PULMONARY [address] | MD [address] | obstructive | | | | [place], | [place], [place] | pulmonary disease) | | | | [place] [address] | [address] | (HCC) (Primary Dx); | | | | [phone] | | Hypoxemia (HCC); GARRY | | [...] car. Draw. Do a puzzle. Build a EpiVax. Delay. The urge to smoke lasts only [...] of these could help you quit smoking. [phone] [employer]. [address] [place] [address], [place] [address]. All righ ts reserved. This information is [...] [facility]) 10/28/2012 Overview: Managed by [facility] [...] 15 tablet, Rfl: 3, Respiratory Therapy Supplies [facility], Please provide patient with necessary CPAP supplies (she did not specify, okay to send order as appropriate) Diagnosis Code(s)327.23 . Length of Nee d 99 months. Please send order to [facility]., Disp: 1 each, Rfl: 0, Respiratory Therapy Supplies MISC, Change CPAP back to 11-14 cm H2O. All necessary supplies . No oxygen bleed in. Diagnosis Code(s)327.23. Length of Need: Lifetime. [facility]. This is not a new order, [...] [place] | | | | | | [id number] | | | | | | | | +--------+---------+ + + + | 11/24/ | Office | Cardiology | [place], | | | 2019 | Visit | | SINDHU Erickson [address] | | | | | | [place] | | | | | | [place] [address] | | | | | | [phone] | | | | | | | | +--------+---------+ + + + | 03/01/ | Office | Pulmonology | Mukul Clark MD | | | 2020 | Visit | | [address] | | | | | | [place] | | | | | | [address] | | | | | | | [...]
--- OUTSIDE RECORDS SUMMARY | ~2019-09-27 | XMS | Encounter Summary ---
Demographics + + + | Address | [address] | | | [place] [address] | + + + | Home Phone [...] Providers + +------+ + | Care Oil Sales And Service Rep Name | Role | Phone | [...] + + | 07/29/ | Office | [facility] UROLOGY | Andriy Amaya | Kendra | | 2018 | Visit | [address] | MD Robert [address] | cystitis (chronic) | | | | [place], [place] | [place] | without hematuria | | | | [address] | [place] [address] | | | | | [phone] | [phone] | | | | | | | [...] as of this encounter Progress Notes Andriy Amaya MD - 07/29/2017 10:30 AM PDTFormatting of this note might be differen t from the original. Rosario is a 52 y.o. 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 Please send order to [facility]. 1 each 0 Respiratory Therapy [...] 10 mL Other Weekly Gene Yinka Tsang 10 mEq at 07/24/17 1058 triamcinolone acetonide (KENALOG-40) 40 mg/mL injection 40 mg 40 mg Other Weekly Gene Robert Amaya MD 40 mg at 07/24/17 1058 PHYSICAL [...] source of her bleeding recently. She will brick picker Keflex for prophylaxis today. DIAGNOSTIC DATA: [...] This document was generated in part using zul[employer] voice recognition software. Although ever y effort is made to edit the content, straw hat washer operator errors may occur. Occasional wrong word or sound alike substitutions may have occurred due to the inherent limitations of the voice recognition software. Please read the chart carefully and recognize, using context, where th raven substitutions may have occurred. Rosario called back to request extra pain medication for her tender urethra. In view of t he recent urethral manipulations, I have written for hydrocodone to use over the next 10 day s or so. documented in th is encounter Miscellaneous Notes Addendum Note - Andriy Amaya MD - 07/29/2017 10:30 AM PDT Addended by: GEN Snow AMAYA on: 07/29/2017 13:17 Modules accepted: Orders documented in this encounter [...] | | | | | | [place] [address] | | | | | | [phone] | | | | | | | | +--------+---------+ + + + | 03/01/ | Office | Pulmonology | Mukul Clark MD | | | 2020 | Visit | | [address] | | | | | | [place] | | | | | | [address] | | | | | | | [...]
--- OUTSIDE RECORDS SUMMARY | ~2019-09-27 | XMS | Encounter Summary ---
Demographics + + + | Address | [address] | | | [place] [address] | + + + | Home Phone [...] Providers + +------+ + | Care Telecommunications Repairer Name | Role | Phone | + +------+ + PCP | Unavailable | + +------+ + Encounter Details +--------+ + + + + | Date | Type | Department | Care Team | Description | +--------+ + + + + | 09/15/ | Hospital | [facility] | Rocky Rodriguez | | | 2010 | Encounter | MED CTR EMERGENCY | MD Kyler [address] | | | | | CENTER [address] [place] | [address] [facility] | | | | | [place], [place] | [place] [address] | | | | | [address] | [phone] | | | | | [phone] | | | +--------+ + + + [...] Emiliano Rodriguez MD Emergency Medicine JOB #: [id number] EXT JOB #:[id number] cc: DO Lencho Guillaume MD <Electronically Signed [...] | | | | | | [place] [address] | | | | | | [phone] | | | | | | | | +--------+---------+ + + + | 03/01/ | Office | Pulmonology | Mukul Clark MD | | | 2020 | Visit | | [address] | | | | | | [place] | | | | | | [address] | | | | | | | | +--------+---------+ + + + documented as of this encounter Visit Diagnoses Not on filedocumented in this encounter"
--- OUTSIDE RECORDS SUMMARY | ~2019-09-27 | XMS | Encounter Summary ---
Demographics + + + | Address | [address] | | | [place] [address] | + + + | Home Phone [...] + + | 09/06/ | Telephone | [facility] | Kevin Sandoval, | Other (increased | | 2014 | | PULMONARY [address] | MD [address] | shortness of breath) | | | | [place], | [place] | | | | | [place] [address] | [address] | | | | | [phone] | | | +--------+ + + + [...] 10 mg every 3 days until complete. Rosraio is also to take Levaquin 500 mg daily for 5 days. [facility] if she can submit a sputum [...] [place] | | | | | | [id number] | | | | | | | | +--------+---------+ + + + | 11/24/ | Office | Cardiology | [place], | | | 2019 | Visit | | SINDHU Erickson [address] | | | | | | [place] | | | | | | [place] [address] | | | | | | [phone] | | | | | | | | +--------+---------+ + + + | 03/01/ | Office | Pulmonology | Mukul Clark MD | | | 2020 | Visit | | [address] | | | | | | [place] | | | | | | [address] | | | | | | | | +--------+---------+ + + + documented as of this encounter Visit Diagnoses Not on filedocumented in this encounter"
--- OUTSIDE RECORDS SUMMARY | ~2019-09-27 | XMS | Encounter Summary ---
Demographics + + + | Address | [address] | | | [place] [address] | + + + | Home Phone [...] Team Providers + +------+ + | Care Protozoologist Name | Role | Phone | + [...] sleep apnea) | | | | [address] [place] | [place] | (Primary Dx) | | | | [place] [address] | [address] | | | | | [phone] | | | +--------+---------+ + + + [...] machine. She has tried to get her [employer] to add the connection part for oxygen to her machine, but it has not happene d. Now she only uses her 3 per minute of supplemental oxygen at night and she has not been u sing her machine for the past few months. She was already on oxygen during the day for her COPD through her emr specialist. She says since she stopped using [...] years before she was switched to bilevel [id number]. I reviewed the notes from Dr Chris Alarcon in [place], [place].It indicates that patient had CPAP intolerance [...] as pressure was increased. Somewhere in the mn ddle of the study patient woke up, [...] her download shows that she is on [facility]. pressure has been changed to 15/11 cm [...] hours of sleep per night. PAP STATISTICS: [facility] Company: In-Home Medical, Bilevel-ST: 15/11 cm H2O [...] Historical Provider, Yinka Naqvi Respiratory Therapy Supplies [facility] Please provide patient with necessary CPAP supplies (she did not specify, okay to send order as appropriate) Diagnosis Code(s)327.23 . Length of Need 99 months. Please send order to [facility]. 01/13/13 Yes Loreta London MD Respiratory Therapy Supplies [facility] Change CPAP back to 11-14 cm H2O. All necessary supplies. No oxygen bleed in. Diagnosis Code(s)327.23. Length of Need: Lifetime. Please send order to [facility]. This [...] the patient. The sleep study report from [facility] kobi naqvi which was performed on 04/17/15( Dr. Alarcon in [place], [place]) indicated that . Bilevel-ST was prescribed [...] evidence for hypoventilation. Date, I personally called [facility] and discussed this with one of the staff. If the machine c ould be set up on bilevel-S this should be done(today, I tried to check it but after about 1 0 minutes the machine still was reading the card, and I wonder if it functions properly). Ot herwise, the machine should be replaced with a bilevel-S machine. A staff from [facility] is to c all me tomorrow and [...] this chart may have been created with [employer] voice recognition software. Occasi onal wrong-word or [...] [place] | | | | | | [address] | | | | | | | | +--------+---------+ + + + | 11/24/ | Office | Cardiology | [place], | | | 2019 | Visit | | SINDHU Erickson [address] | | | | | | [place], | | | | | | [place] [address] | | | | | | [phone] | | | | | | | | +--------+---------+ + + + | 03/01/ | Office | Pulmonology | Mukul Clark MD | | | 2020 | Visit | | [address] | | | | | | [place] | | | | | | [phone] | | | | | | | | +--------+---------+ + + + documented as of this encounter Visit Diagnoses + + | Diagnosis | + + | GARRY (obstructive sleep apnea) - Primary Obstructive sleep apnea (adult) (pediatric) | + + documented in this encounter
--- OUTSIDE RECORDS SUMMARY | ~2019-09-27 | XMS | Encounter Summary ---
Demographics + + + | Address | [address] | | | [place] [address] | + + + | Home Phone [...] Providers + +------+ + | Care Fire Watchman Name | Role | Phone | + [...] | Concussion | Aaron Kim MD | Newspaper Reporter [address] | | | Required | | with brief | [address] | [place] | | | | | loss of | [address] | [place], [place] | | | | | consciousnes | [place], | [address] | | | | | s Word | [place] [address] | Phone: | | | | | finding | Phone: | [phone] | | | | | difficulty | [phone] | Fax: | | | | | [phone] | Fax: | [phone] | | | | | (ICD-10-CM) | [phone] | | | | | | - [...] + | 06/06/ | Hospital | [facility] | Aaron Rodriguez, | Concussion with | | 2017 | Encounter | MED CTR SPEECH | MD [address] | brief (less than one | | | | THERAPY [address] | [place] | hour) loss of | | | | [place], | [address] | consciousness | | | | [place] [address] | | (Primary Dx) | | | | [phone] | Kathi Soto, | | | | [...] | | | | | | | ([facility]) | | | | | | + + + +---------+ + + | | Take 1 capsule by | | 0 | 10/13/19 | | | Ssdqgdeaee-SYTL-Nbjj | mouth as needed. | | | 16 | 7 | | -Cod 03-875-03-30 MG | | | | | | [...] | | | | | | | ([facility]) | | | | | | + [...] Speech Pathologist - 06/06/2016 5:52 PM PDT [facility] SPEECH THERAPY [address] [place] [address] Speech Therapy Daily Treatment Note Date: 06/06/2016 [...] Precautions Precautions None Rehab Learning Style [facility] ATTENDANT OP EVAL from 05/16/[address] [facility] CTR SPEECH THERAPY Office V isit from 05/01/[address] [facility] CTR THERAPY PT OP Learning Style [...] [place] | | | | | | [id number] | | | | | | | | +--------+---------+ + + + | 11/24/ | Office | Cardiology | [place], | | | 2019 | Visit | | SINDHU Erickson [address] | | | | | | [place] | | | | | | [place] [address] | | | | | | [phone] | | | | | | | | +--------+---------+ + + + | 03/01/ | Office | Pulmonology | Mukul Clark MD | | | 2020 | Visit | | [address] | | | | | | [place] | | | | | | [address] | | | | | | | [...]
--- OUTSIDE RECORDS SUMMARY | ~2019-09-27 | XMS | Encounter Summary ---
Demographics + + + | Address | [address] | | | [place] [address] | + + + | Home Phone [...] Providers + +------+ + | Care Brass Burnisher Name | Role | Phone | [...] | CALL) | | | | [place] | [address] | | | | | [address] | [place] [address] | | | | | [phone] | [phone] | | | | | | | [...] [place] | | | | | | [address] | | | | | | | | +--------+---------+ + + + | 11/24/ | Office | Cardiology | [place], | | | 2019 | Visit | | SINDHU Erickson [address] | | | | | | [place], | | | | | | [place] [address] | | | | | | [phone] | | | | | | | [...]
--- OUTSIDE RECORDS SUMMARY | ~2019-09-27 | XMS | Encounter Summary ---
Demographics + + + | Address | [address] | | | [place] [address] | + + + | Home Phone [...] + +------+ + | Care Loss Prevention Leader Name | Role | Phone | [...] + + | 09/13/ | Emergency | [facility] | Tom Clarke, | Tachycardia (Primary | | 2018 | | MED CTR EMERGENCY | MD [address] | Dx); Hypokalemia | | | | CENTER [address] | [place] | | | | | [place] | [address] | | | | | [address] | | | | | | [phone] | | | +--------+ + + + [...] sent through Care Everywhere.Hypokalemia (En glish)Tachycardia, Understanding (Argentine)documented in this encounter Medications at Time of [...] Clarke MD - 09/13/2017 7:36 AM PDT [address] [address] EMERGENCY ROOM REPORT TOM CLARKE MD Patient: JADYN SCHMITZ Admitting: MR #: [id number] LOC: PT TYPE: Adm Date: 09/13/2017 : [...] sinus tachycardia with a rate of 102. SD 94 and QRS is 68. There are [...] hypokalemia. She will follow up with her detail supervisor. She has had no further symptoms. She is comfortable with this plan. DIAGNOSIS: Tachycardia, resolved. DISPOSITION: Home. TOM CLARKE MD Dictated by TOM CLARKE MD 09/13/2017 07:36:25 Transcribed on 09/13/2017 08:12:42 by job# [id number] Confirmation #: [id number] cc: YONG PATEL DO Surjit Fry R [...] | | | | | | [place] [address] | | | | | | [phone] | | | | | | | | +--------+---------+ + + + | 03/01/ | Office | Pulmonology | Mukul Clark MD | | | 2020 | Visit | | [address] | | | | | | [place] | | | | | | [address] | | | | | | | [...] W?MRN: | | | | | | [id number] | | | [id number] | | | his | | | [...] [address] | [place] | [phone] | | [facility] | | [address] | | | - LABORATORY | | [...] + | [facility] | [address] | [place] | [phone] | | [facility] | | [address] | | | - LABORATORY | | [...] mL/min/1.73m2 | [facility] | | | Irish | RATE,ESTIMATED | | MEDICAL | | | | mL/min/1.73p9Fdoo than | | CENTER - | | [...] [address] | [place] | [phone] | | [facility] | | [address] | | | - LABORATORY | | [...] ST. | [address] | [place], [place] | [phone] | | [facility] | | [address] | | | - LABORATORY | | [...] short | | | | | | [place] though P waves are | | | [...] | | | | RAFA WELLS MD ([id number]) | | | | | | on [...]
--- OUTSIDE RECORDS SUMMARY | ~2019-09-27 | XMS | Encounter Summary ---
Demographics + + + | Address | [address] | | | [place] [address] | + + + | Home Phone [...] Providers + +------+ + | Care Environmental Management Specialist Name | Role | Phone [...] | COPD | MD Kevin | [address] [place] | | | | | (chronic | [address] | [place], | | | | | obstructive | [address] | [place] [address] | | | | | pulmonary | [place], | Phone: | | | | | disease) | [place] [address] | [phone] | | | | | (HCC) | Phone: | Fax: | | | | | Procedures | [phone] | [phone] | | | | | CT Chest wo | Fax: | | | | | | Contrast | [phone] | | +--------+--------+ + + + + [...] | COPD | MD Kevin | [address] [place] | | | | | (chronic | [address] | [place], | | | | | obstructive | [place] | [place] [address] | | | | | pulmonary | [place], | Phone: | | | | | disease) | [place] [address] | [phone] | | | | | (HCC) | Phone: | Fax: | | | | | Procedures | [phone] | [phone] | | | | | CT Chest wo | Fax: | | | | | | Contrast | [phone] | | +--------+--------+ + + + + Encounter Details +--------+ + + + + | Date | Type | Department | Care Team | Description | +--------+ + + + + | 11/16/ | Hospital | [facility] | Kevin Sandoval, | COPD (chronic | | 2013 | Encounter | MED CTR CT [address] | [address] | obstructive | | | | [place], | [place], [place] | pulmonary disease) | | | | [place] [address] | [id number] | ([facility]) | | | | [phone] | | | +--------+ + + + [...] | | | | | | | [facility]. | | | | | [...] | | | | | | [place] [address] | | | | | | [phone] | | | | | | | | +--------+---------+ + + + | 03/01/ | Office | Pulmonology | Mukul Clark MD | | | 2020 | Visit | | [address] | | | | | | [place] | | | | | | [address] | | | | | | | [...] + | MISCELLANEOUS LAB | | | [phone] | + +---------+ + + | MISCELANIOUS LAB | | | [phone] | + +---------+ + + documented in this encounter Visit Diagnoses + + | Diagnosis | + + | COPD (chronic obstructive pulmonary disease) (HCC) Chronic airway obstruction, not | | elsewhere classified | + + documented in this encounter
--- OUTSIDE RECORDS SUMMARY | ~2019-09-27 | XMS | Encounter Summary ---
Demographics + + + | Address | [address] | | | [place] [address] | + + + | Home Phone [...] Providers + +------+ + | Care Search Engine Marketing Specialist Name | Role | Phone [...] + + | 01/20/ | Emergency | [facility] | Nestor Martinez, | COPD exacerbation | | 2013 - | | [facility] EM[facility] | MD [address] | ([facility]) (Primary Dx) | | | | [place] [address] | [place], [place] | | | 01/21/ | | [place], [place] | [address] | | | 2013 | | [address] | | | | | | [phone] | | | +--------+ + + + [...] sent through Care Everywhere.ED COPD FLARE ( HAITIAN)documented in this encounter Medications at Time of [...] | | | | | order to [facility]. | | | | | + [...] with Shortness of Breath HPI Rosario Rea Belmont is a 49 y.o. female who presents with a two-day history of worsening s hortness of breath. She has COPD and is on 2 L nasal cannula oxygen [id number]. She's not had any fevers or chills. [...] ([facility]) 10/28/2012 Overview: Managed by [facility] along with hypothyroidism Osteoarthritis Tachycardia Asthma Emphysema Migraine SURGICAL HISTORY Past Surgical History Procedure Date Hammer toe surgery right sided Hiatal hernia repair Hiatal hernia Kirk and bso Ovarian cysts, not cancer Colonoscopy 03/2010 Colonoscopy 1995 [facility] Knee surgery right Wrist surgery right CURRENT [...] Take by mouth Daily. RESPIRATORY THERAPY SUPPLIES [facility] Change CPAP back to 11-14 cm H2O. All necessary suppl ies. No oxygen bleed in. Diagnosis Code(s)327.23. Length of Need: Lifetime. Please send orde r to [facility]. This is not a new order, just a change in settings. RESPIRATORY THERAPY SUPPLIES [facility] Please provide patient with necessary CPAP supplies ( she did not specify, okay to send order as appropriate) Diagnosis Code(s)327.23 . Length of Need 99 months. Please send order to [facility]. RESPIRATORY THERAPY SUPPLIES [facility] Incentive spirometer. Please provide instructions in use. 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 Neck-supple, [...] Adult Medicine Contact information: [address] [place] [id number] New Prescriptions PREDNISONE (DELTASONE) 10 MG TABLET Take 60mg/day x 7 days, then 30mg/day x 7 days, the n 15mg/day x 7 days Nestor Martinez MD 01/21/14 0013 document ed in this encounter Miscellaneous Notes Plan of Care - [facility] - 01/24/2014 12:00 AM PST D Triage [...] [place] | | | | | | [address] | | | | | | | | +--------+---------+ + + + | 11/24/ | Office | Cardiology | [place], | | | 2019 | Visit | | SINDHU Erickson [address] | | | | | | [address] [place], | | | | | | [place] [address] | | | | | | [phone] | | | | | | | | +--------+---------+ + + + | 03/01/ | Office | Pulmonology | Mukul Clark MD | | | 2020 | Visit | | [address] | | | | | | [place] | | | | | | [address] | | | | | | | [...] + | MISCELLANEOUS LAB | | | [phone] | + +---------+ + + | MISCELANIOUS LAB | | | [phone] | + +---------+ + + documented in [...]
--- OUTSIDE RECORDS SUMMARY | ~2019-09-27 | XMS | Encounter Summary ---
Demographics + + + | Address | [address] | | | [place] [address] | + + + | Home Phone [...] Providers + +------+ + | Care Traffic Attendant Name | Role | Phone | [...] + + | 06/19/ | Emergency | [facility] | Nestor Martinez, | COPD with acute | | 2013 - | | MED CTR EMERGENCY | [address] | exacerbation (HCC) | | | | CENTER [address] | [place], [place] | (Primary Dx) | | 06/20/ | | [place] | [address] | | | 2013 | | [address] | | | | | | [phone] | Ozzie Hayes | | | | | | MD Ran [address] | | | | | | [address] [facility] | | | | | | [place] [address] | | | | | | [phone] | | | | | | | [...] be sent through Care Everywhere.COPD FLARE ([facility])documented in this encounter Medications at Time [...] duct (pouch) (HCC) 10/28/2012 Overview: Managed by [facility] along with hypothyroidism Osteoarthritis SURGICAL HISTORY Past Surgical History Procedure Date Hammertoe repair right sided Hiatal hernia repair Hiatal hernia Kirk and bso Ovarian cysts, not cancer Colonoscopy 03/2010 Colonoscopy 1995 [facility] CURRENT MEDICATIONS Previous Medications ADVAIR [...] mouth Daily as needed. RESPIRATORY THERAPY SUPPLIES [facility] Change CPAP back to 11-14 cm H2O. All necessary suppl ies. No oxygen bleed in. Diagnosis Code(s)327.23. Length of Need: Lifetime. Please send orde r to [facility]. This is not a new order, just a change in settings. RESPIRATORY THERAPY SUPPLIES [facility] Please provide patient with necessary CPAP supplies ( she did not specify, okay to send order as appropriate) Diagnosis Code(s)327.23 . Length of Need 99 months. Please send order to [facility]. RESPIRATORY THERAPY SUPPLIES [facility] Incentive spirometer. 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 [...] for an appointment.) Contact information: [address] [facility] [address] New Prescriptions PREDNISONE (DELTASONE) [...] | | | | | | [place] [address] | | | | | | [phone] | | | | | | | | +--------+---------+ + + + | 03/01/ | Office | Pulmonology | Mukul Clark MD | | | 2020 | Visit | | [address] | | | | | | [place] [facility] | | | | | | [address] | | | | | | | [...]
--- OUTSIDE RECORDS SUMMARY | ~2019-09-27 | XMS | Encounter Summary ---
Demographics + + + | Address | [address] | | | [place] [address] | + + + | Home Phone [...] Providers + +------+ + | Care Solar Systems Designer Name | Role | Phone | [...] + + | 07/28/ | Telephone | [facility] | Kevin Sandoval, | Other (shortness of | | 2014 | | PULMONARY [address] | MD [address] | breath) | | | | [place], | [place] | | | | | [place] [address] | [address] | | | | | [phone] | | | +--------+ + + + [...] [place] | | | | | | [address] | | | | | | | | +--------+---------+ + + + | 11/24/ | Office | Cardiology | [place], | | | 2019 | Visit | | SINDHU Erickson [address] | | | | | | [place], | | | | | | [place] [address] | | | | | | [phone] | | | | | | | | +--------+---------+ + + + | 03/01/ | Office | Pulmonology | Mukul Clark MD | | | 2020 | Visit | | [address] | | | | | | [place] | | | | | | [address] | | | | | | | | +--------+---------+ + + + documented as of this encounter Visit Diagnoses Not on filedocumented in this encounter"
--- OUTSIDE RECORDS SUMMARY | ~2019-09-27 | XMS | Encounter Summary ---
Demographics + + + | Address | [address] | | | [place] [address] | + + + | Home Phone [...] Team Providers + +------+ + | Care Spectacle Truer Name | Role | Phone | + [...] + + | 05/22/ | Clinical | [facility] | Andriy Weber | Interstitial | | 2018 | Support | [address] | MD [address] | cystitis (chronic) | | | | [place] | [place] | without hematuria | | | | [address] | [place] [address] | | | | | [phone] | [phone] | | | | | | | [...] discharged home and will return [facility] for next treatment.Electronically [...] [place] | | | | | | [address] | | | | | | | | +--------+---------+ + + + | 11/24/ | Office | Cardiology | [place], | | | 2019 | Visit | | SINDHU Erickson [address] | | | | | | [place], | | | | | | [place] [address] | | | | | | [phone] | | | | | | | | +--------+---------+ + + + | 03/01/ | Office | Pulmonology | Mukul Clark MD | | | 2020 | Visit | | [address] | | | | | | [place] | | | | | | [address] | | | | | | | [...] 1.001 - 1.030 | | | | [place], | | | | | | [facility], [...]
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
--- OUTSIDE RECORDS SUMMARY | ~2019-09-27 | XMS | Encounter Summary ---
Demographics + + + | Address | [address] | | | [place] [address] | + + + | Home Phone [...] Team Providers + +------+ + | Care Lab Director Name | Role | Phone | [...] + + | 02/02/ | [facility] | [facility] | Jared Mcdonough, | Paroxysmal atrial | | 2015 | Visit | CARDIOLOGY [address] | MD [address] | tachycardia (HCC) | | | | [place], | [place], | (Primary Dx); | | | | [place] [address] | [place] [address] | Syncope, unspecified | | | | [phone] | [phone] | syncope type; | | | | | | Palpitations | | | | | Ashlee Allison ARNP | | | | | | [address] | | | | | | [place] | | | | | | [phone] | | | | | | | [...] concerns. Electronically signed by: Jared Mcdonough MD [facility] 02/02/2015 Portions of this chart may have been created with [employer] voice recognition software. Occasi onal wrong-word [...] | | | | | | [place] [address] | | | | | | [phone] | | | | | | | | +--------+---------+ + + + | 03/01/ | Office | Pulmonology | Mukul Clark MD | | | 2020 | Visit | | [address] | | | | | | [place] | | | | | | [address] | | | | | | | | +--------+---------+ + + + documented as of this encounter Visit Diagnoses + + | Diagnosis | + + | Paroxysmal atrial tachycardia (HCC) - Primary Paroxysmal supraventricular tachycardia | + + | Syncope, unspecified syncope type | + + | Palpitations | + + documented in this encounter
--- OUTSIDE RECORDS SUMMARY | ~2019-09-27 | XMS | Encounter Summary ---
Demographics + + + | Address | [address] | | | [place] [address] | + + + | Home Phone [...] Team Providers + +------+ + | Care Final Assembly Inspector Name | Role | Phone | + +------+ + PCP | Unavailable | + +------+ + Encounter Details +--------+ + + + + | Date | Type | Department | Care Team | Description | +--------+ + + + + | 07/25/ | Hospital | [facility] | [place], | | | 2010 | Encounter | MED CTR EMERGENCY | Ozzy Kim MD [address] | | | | | CENTER [address] | [address] [facility] | | | | | [place], [place] | [place] [address] | | | | | [address] | [phone] | | | | | [phone] | | | +--------+ + + + [...] dose was given here), Pyridium, a nd [place] for pain. Plenty of fl uids. Return for any concerns. IMPRESSION: URINARY TRACT INFECTION. DICTATED BY: Ozzy Louis MD Emergency Medicine JOB #: [id number] EXT JOB #:[id number] <Electronicall y Signed by Ozzy Louis MD> [...] | | | | | | [place] [address] | | | | | | [phone] | | | | | | | | +--------+---------+ + + + | 03/01/ | Office | Pulmonology | Mukul Clark MD | | | 2020 | Visit | | [address] | | | | | | [place] | | | | | | [address] | | | | | | | [...] - 1.030 | [facility] | | | [place], | | | [facility] | | [...] | [facility] | [address] | [place], [place] | [phone] | | [facility] | | [address] | | | - LABORATORY | | | | + + + + + | [facility] | [address] | [place], [place] | | | [facility] | | [address], [facility] | | | - LABORATORY | | | | + + + + + documented in this encounter Visit Diagnoses Not on filedocumented in this encounter"
--- OUTSIDE RECORDS SUMMARY | ~2019-09-27 | XMS | Encounter Summary ---
Demographics + + + | Address | [address] | | | [place] [address] | + + + | Home Phone [...] Team Providers + +------+ + | Care Seasonal Greenery Bundler Name | Role | Phone | + +------+ + PCP | Unavailable | + +------+ + Encounter Details +--------+ + + + + | Date | Type | Department | Care Team | Description | +--------+ + + + + | 11/01/ | [facility] | [facility] | | | | 2008 | Encounter | MED CTR XRAY [address] | | | | | | [place] | | | | | | [place] [address] | | | | | | [phone] | | | +--------+ + + + [...] [place] | | | | | | [id number] | | | | | | | | +--------+---------+ + + + | 11/24/ | Office | Cardiology | [place], | | | 2019 | Visit | | SINDHU Erickson [address] | | | | | | [place] | | | | | | [place] [address] | | | | | | [phone] | | | | | | | | +--------+---------+ + + + | 03/01/ | Office | Pulmonology | Mukul Clark MD | | | 2020 | Visit | | [address] | | | | | | [place] | | | | | | [address] | | | | | | | | +--------+---------+ + + + documented as of this encounter Visit Diagnoses Not on filedocumented in this encounter"
--- OUTSIDE RECORDS SUMMARY | ~2019-09-27 | XMS | Encounter Summary ---
Demographics + + + | Address | [address] | | | [place] [address] | + + + | Home Phone [...] Team Providers + +------+ + | Care Taffy Candy Maker Name | Role | Phone | [...] | | MD Jared | [address] | | | | | Pericarditis | [address] | [place], | | | | | Procedures | [address] | [place] | | | | | ECHO | [place], | [address] | | | | | Complete | [place] [address] | Phone: | | | | | | Phone: | [phone] | | | | | | [phone] | Fax: | | | | | | Fax: | [phone] | | | | | | [phone] | | +--------+--------+ + + + + [...] | | MD Jared | [address] | | | | | Pericarditis | [address] | [place], | | | | | Procedures | [address] | [place] | | | | | ECHO | [place], | [address] | | | | | Complete | [place] [address] | Phone: | | | | | | Phone: | [phone] | | | | | | [phone] | Fax: | | | | | | Fax: | [phone] | | | | | | [phone] | | +--------+--------+ + + + + Encounter Details +--------+ + + + + | Date | Type | Department | Care Team | Description | +--------+ + + + + | 01/14/ | Hospital | [facility] | Jared Mcdonough, | Pericarditis | | 2013 | Encounter | MED CTR ECHO [address] | [address] | | | | | [address] [place] | [place], | | | | | [place] [address] | [place] [address] | | | | | [phone] | [phone] | | | | | | | [...] | | | | | | [place] [address] | | | | | | [phone] | | | | | | | | +--------+---------+ + + + | 03/01/ | Office | Pulmonology | Mukul Clark MD | | | 2020 | Visit | | [address] | | | | | | [place] | | | | | | [address] | | | | | | | [...] At | + + + | [facility]PORT | RANJANYENI | | STUDY DATE: 01/14/2014 PATIENT NAME: Rosario Malik | [facility] | | : 1965 PCP: Juan Cherry [facility] | | CLINICAL HISTORY/DIAGNOSIS: Pericarditis/pericardial effusion A [...] by: | | | Jared Mcdonough MD [facility] 01/14/2014 8:40 Ict Support Engineer: | | | Charmaine Ibarra RDMS | | + + + + + | Procedure Note | + + | Jared Mcdonough MD - 01/14/2014 11:28 AM [facility] | | CENTERECHOCARDIOGRAM REPORTSTUDY DATE: 01/14/2014PATIENT NAME: Rosario AyersOB: | | 1965MRN: [id number]: EFREN GuillaumeLINICAL HISTORY/DIAGNOSIS: | | Pericarditis/pericardial effusionA [...] | mmHgLA volume: 30 mLLA index: 18 mL/f4Uutmbw Inflow DT: 262 msIVRT: 75 msValsalva: | | NegativePWDTI S wave: 8.7 cm/sPWDTI E wave: 9.0 cm/sPWDTI A wave: 11.5 cm/sE/A Ratio: | | 0.783E/E Ratio: 8.95Signed by: Jared Mcdonough MD [facility] 01/14/2014 8:40 | | Ict Support Engineer: Charmaine Ibarra RDMS | | | | [...] | | |Signed by: Jared Mcdonough MD [facility] | | 01/14/2014 8:40 | | | | | |Ict Support Engineer: Charmaine Ibarra RDMS | + + + + + + + | Performing | Address | City/State/Zipcode | Phone Number | | Organization | | | | + + + + + | [facility] | [address] | [place] | [phone] | | [facility] | | [address] | | | - IMAGING | | [...]
--- OUTSIDE RECORDS SUMMARY | ~2019-09-27 | XMS | Encounter Summary ---
Demographics + + + | Address | [address] | | | [place] [address] | + + + | Home Phone [...] Team Providers + +------+ + | Care Kitchen Hand Name | Role | Phone | [...] + + | 04/03/ | Office | [facility] | [place], | Abnormal stress test | | 2017 | Visit | CARDIOLOGY [address] | SINDHU Erickson [address] | (Primary Dx); | | | | [place], | [place], | Paroxysmal atrial | | | | [place] [address] | [place] [address] | tachycardia (HCC) | | | | [phone] | [phone] | | | | | | | [...] 4 hours as needed. 360 mL 5 Qjtvprspbb-TZVD-Cspc-Cod [id number] MG CAPS Take 1 capsule by mouth [...] longer present Confirmed by RAFA WELLS MD ([id number]) on 08/06/2015 9:42:29 AM LAB RESULTS reviewed [...] She is in a class II of [place] [employer] on functional class. There is [...] and v entricular function done at the [facility]. LVEF 78%. [...] this chart may have been created with Shareight voice recognition software. Occasi onal wrong-word or [...] 2019 | Visit | | [address] [facility] | | | | | | [place] | | | | | | [address] | | | | | | | | +--------+---------+ + + + | 11/24/ | Office | Cardiology | [place], | | | 2019 | Visit | | SINDHU Erickson [address] | | | | | | [place] | | | | | | [place] [address] | | | | | | [phone] | | | | | | | | +--------+---------+ + + + | 03/01/ | Office | Pulmonology | Mukul Clark MD | | | 2020 | Visit | | [address] | | | | | | [place] | | | | | | [address] | | | | | | | [...]
--- OUTSIDE RECORDS SUMMARY | ~2019-09-27 | XMS | Encounter Summary ---
Demographics + + + | Address | [address] | | | [place] [address] | + + + | Home Phone [...] Team Providers + +------+ + | Care Wide Area Network Systems Administrator Name | Role | Phone | [...] [address] [place] | | | | | | [place] | | | | | | [address] | | | | | | [phone] | | | +--------+ + + + [...] [place] | | | | | | [address] | | | | | | | | +--------+---------+ + + + | 11/24/ | Office | Cardiology | [place], | | | 2020 | Visit | | SINDHU Erickson [address] | | | | | | [place] | | | | | | [place] [address] | | | | | | [phone] | | | | | | | | +--------+---------+ + + + | 03/01/ | Office | Pulmonology | Mukul Clark MD | | | 2020 | Visit | | [address] | | | | | | [place] | | | | | | [address] | | | | | | | | +--------+---------+ + + + documented as of this encounter Visit Diagnoses + + | Diagnosis | + + | Sprain of chest wall - Primary Other specified sites of sprains and strains | + + documented in this encounter"
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
--- OUTSIDE RECORDS SUMMARY | ~2019-09-27 | XMS | Encounter Summary ---
Demographics + + + | Address | [address] | | | [place] [address] | + + + | Home Phone [...] Providers + +------+ + | Care Charge Manager Name | Role | Phone | [...] | | | | | pulmonary | [address] | [address] | | | | | disease, | [place], | [address] [place] | | | | | unspecified | [place] [address] | [place], [place] | | | | | COPD type | Phone: | [address] | | | | | (HCC) | [phone] | Phone: | | | | | Pulmonary | Fax: | [phone] | | | | | emphysema, | [phone] | Fax: | | | | | unspecified | | [phone] | | | | | emphysema | | | | | | | type ([facility]) | | | +--------+ + + + + + Encounter Details +--------+---------+ + + + | Date | Type | Department | Care Team | Description | +--------+---------+ + + + | 05/07/ | Office | [facility] | Danieljeremyjose Jared, | Mild persistent | | 2017 | Visit | MED CTR CARDIAC | [address] | asthma without | | | | REHABILITATION [address] | [address] [place], | complication | | | | [address] [place] | [place] [address] | (Primary Dx); | | | | [place] [address] | [phone] | Chronic obstructive | | | | [phone] | | pulmonary disease, | | | [...] of this encounter Progress Notes Dimitrios-Tricia Crawley, NEUROBIOLOGIST - 05/07/2016 1:52 PM PDTFlChris Malik is a [age] year o [...] [place] | | | | | | [address] | | | | | | | | +--------+---------+ + + + | 11/24/ | Office | Cardiology | [place], | | | 2019 | Visit | | SINDHU Erickson [address] | | | | | | [place] | | | | | | [place] [address] | | | | | | [phone] | | | | | | | | +--------+---------+ + + + | 03/01/ | Office | Pulmonology | Mukul Clark MD | | | 2020 | Visit | | [address] | | | | | | [place] | | | | | | [address] | | | | | | | [...]
--- OUTSIDE RECORDS SUMMARY | ~2019-09-27 | XMS | Encounter Summary ---
Demographics + + + | Address | [address] | | | [place] [address] | + + + | Home Phone [...] Providers + +------+ + | Care Biofuels Product Development Manager Name | Role | Phone [...] + | 10/04/ | Office | [facility] | Kevin Sandoval, | COPD (chronic | | 2013 | Visit | PULMONARY [address] | MD [address] | obstructive | | | | [place], | [place], [place] | pulmonary disease) | | | | [place] [address] | [address] | ([facility]) (Primary Dx); | | | | [phone] | | Hypoxemia | +--------+---------+ + + [...] not start to improve within 24 hours [address], [place] [address]. All rights reserve d. This information is [...] evaluated in the emergency department of the [facility]. The second exacerbation occurred in early August and resulted in hospitalization at the [facility]. Treatment with prednisone and anti biotics occurred. Rosario was hospitalized for approximately 4 days. She was discharged o n supplemental oxygen and instructed to use it 24 hours a day. She also apparently had an i ncreased heart rate which was evaluated by systems auditor. The patient was treated with digox in. Her digoxin was discontinued approximately a month ago. The patient is scheduled to se drew Mcdonough tomorrow to address her need for [...] They currently are using nocturnal oxygen. T heeloy are currently on 2 LPM at night. [...] up to date with t heir Pneumovax. Rosario believes that she could be [...] ([facility]) 10/28/2012 Overview: Managed by [facility] along with hypothyroidism Osteoarthritis Tachycardia Social [...] Need 99 months. Please send order to [facility] D isp: 1 each, Rfl: 0 Respiratory Therapy Supplies MISC, Change CPAP back to 11-14 cm H2O. All necessary supplies . No oxygen bleed in. Diagnosis Code(s)327.23. Length of Need: Lifetime. Please send order t bony [facility]. This is not [...] saturation less than/equal to 88%. Assessment 1. COPD-Rosario appears to be experiencing frequent COPD exacerbations. [...] | | | | | | [place] [address] | | | | | | [phone] | | | | | | | | +--------+---------+ + + + | 03/01/ | Office | Pulmonology | Mukul Clark MD | | | 2020 | Visit | | [address] | | | | | | [place] | | | | | | [id number] | | | | | | | | +--------+---------+ + + + documented as of this encounter Visit Diagnoses + + | Diagnosis | + + | COPD (chronic obstructive pulmonary disease) (HCC) - Primary Chronic airway | | obstruction, not elsewhere classified | + + | Hypoxemia | + + documented in this encounter
--- OUTSIDE RECORDS SUMMARY | ~2019-09-27 | XMS | Encounter Summary ---
Demographics + + + | Address | [address] | | | [place] [address] | + + + | Home Phone [...] Team Providers + +------+ + | Care Pmo Manager Name | Role | Phone | + +------+ + | Juan Cherry DO | PCP | | + +------+ + Encounter Details +--------+ + + + + | Date | Type | Department | Care Team | Description | +--------+ + + + + | 09/09/ | Hospital | [facility] GENER[facility] IP | Conversion | Pain | | 2015 | Encounter | CONVERSION [address] | Transaction, | | | | | [address] | Provider Unknown | | | | | [place], [place] | [phone] | | | | | [address] | | | | | | [phone] | | | +--------+ + + + [...] [place] | | | | | | [address] | | | | | | | | +--------+---------+ + + + | 11/24/ | Office | Cardiology | [place], | | | 2019 | Visit | | SINDHU Erickson [address] | | | | | | [place] | | | | | | [place] [address] | | | | | | [phone] | | | | | | | | +--------+---------+ + + + | 03/01/ | Office | Pulmonology | Mukul Clark MD | | | 2020 | Visit | | [address] | | | | | | [place] | | | | | | [address] | | | | | | | [...]
--- OUTSIDE RECORDS SUMMARY | ~2019-09-27 | XMS | Encounter Summary ---
Demographics + + + | Address | [address] | | | [place] [address] | + + + | Home Phone [...] Team Providers + +------+ + | Care Gray Mixing Operator Name | Role | Phone | + +------+ + PCP | Unavailable | + +------+ + Encounter Details +--------+ + + + + | Date | Type | Department | Care Team | Description | +--------+ + + + + | 02/08/ | Hospital | [facility] | Deniz Alexi Kim, | | | 2009 | Encounter | MED CTR EMERGENCY | [address] | | | | | [place] [address] | [place] | | | | | [place] | [address] | | | | | [address] | | | | | | [phone] | | | +--------+ + + + [...] [place] | | | | | | [address] | | | | | | | | +--------+---------+ + + + | 11/24/ | Office | Cardiology | [place], | | | 2019 | Visit | | SINDHU Erickson [address] | | | | | | [place], | | | | | | [place] [address] | | | | | | [phone] | | | | | | | | +--------+---------+ + + + | 03/01/ | Office | Pulmonology | Mukul Clark MD | | | 2020 | Visit | | [address] | | | | | | [place] | | | | | | [address] | | | | | | | | +--------+---------+ + + + documented as of this encounter Visit Diagnoses Not on filedocumented in this encounter"
--- OUTSIDE RECORDS SUMMARY | ~2019-09-27 | XMS | Encounter Summary ---
Demographics + + + | Address | [address] | | | [place] [address] | + + + | Home Phone [...] Providers + +------+ + | Care Prevention Rn Name | Role | Phone | [...] | | | | [facility] | [address] | [address] | | | | | EXERCISE | [place], | [place] | | | | | | [place] [address] | [place], [place] | | | | | | Phone: | [address] | | | | | | [phone] | Phone: | | | | | | Fax: | [phone] | | | | | | [phone] | Fax: | | | | | | | [phone] | +--------+--------+ + + + + Encounter Details +--------+---------+ + + + | Date | Type | Department | Care Team | Description | +--------+---------+ + + + | 07/30/ | Office | [facility] | Jared Mcdonough, | Chronic obstructive | | 2017 | Visit | MED CTR CARDIAC | [address] | pulmonary disease, | | | | REHABILIT[address] | [address] [place], | unspecified COPD | | | | [address] [place] [place] | [place] [address] | type (HCC) (Primary | | | | [place] [address] | [phone] | Dx) | | | | [phone] | | | +--------+---------+ + + + [...] of this encounter Progress Nima Plunkett-Tricia Crawley, SCREEN MACHINE OPERATOR - 07/30/2016 10:15 AM PDTPatient tolerated exercise [...] [place] | | | | | | [id number] | | | | | | | | +--------+---------+ + + + | 11/24/ | Office | Cardiology | [place], | | | 2019 | Visit | | SINDHU Erickson [address] | | | | | | [place] | | | | | | [place] [address] | | | | | | [phone] | | | | | | | | +--------+---------+ + + + | 03/01/ | Office | Pulmonology | Mukul Clark MD | | | 2020 | Visit | | [address] | | | | | | Jose [place] | | | | | | [address] | | | | | | | | +--------+---------+ + + + documented as of this encounter Visit Diagnoses + + | Diagnosis | + + | Chronic obstructive pulmonary disease, unspecified COPD type (HCC) - Primary | + + documented in this encounter"
--- OUTSIDE RECORDS SUMMARY | ~2019-09-27 | XMS | Encounter Summary ---
Demographics + + + | Address | [address] | | | [place] [address] | + + + | Home Phone [...] Providers + +------+ + | Care Engagement Director Name | Role | Phone | [...] [address] | | | | | [place], | [place], | | | | | [place] [address] | [place] [address] | | | | | [phone] | [phone] | | | | | | | [...] | | | | | | [place] [address] | | | | | | [phone] | | | | | | | [...]
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
--- OUTSIDE RECORDS SUMMARY | ~2019-09-27 | XMS | Encounter Summary ---
Demographics + + + | Address | [address] | | | [place] [address] | + + + | Home Phone [...] Providers + +------+ + | Care Supervisor Winter Name | Role | Phone | + +------+ + | Juan Cherry DO | PCP | | + +------+ + Reason for Visit +--------+--------+ + | Reason | Onset | Comments | | | Date | | +--------+--------+ + | Other | 04/03/ | referral to gas plant worker or dietian | | | 2016 | | +--------+--------+ + Encounter Details +--------+ + + + + | Date | Type | Department | Care Team | Description | +--------+ + + + + | 04/03/ | Telephone | [facility] | [place], | Other (referral to | | 2016 | | CARDIOLOGY [address] | [place] Erickson [address] | gas plant worker or | | | | [place], | [place], | dietian) | | | | [place] [address] | [place] [address] | | | | | [phone] | [phone] | | | | | | | [...] 1:10 PM PSTReferral created. See referra l #[id number] for updates. ele phone Encounter - Nilda Escalona RN - 04/04/2016 10:15 AM Koko called to report th at [facility] is a house supervisor for mommies and babies. She would now like to go see the provider at the [facility]. That one is [address]; they request that we put in a referral and send records. Patient is aware. I will ask PSR's to please enter the referral as mentioned bel ow but send to Abena [address] at [facility] instead. Thanks .................................... .......Nilda Escalona RN on 04/04/16 at 10:21 elephone Encounter - Nilda Escalona RN - 04/04/2016 9:26 AM Koko is notified, she does not have any one in mind. A Google search brought up one on [address] and one at [facility]. Rosario would p refer not to see someone at [facility]. She is given the number for the one on [address]. I will als o ask PSR's to please put in a referral and send records as needed for patient to see Carter Araiza RD at [address], phone [phone], diagnosis of obesity, need for diet and [...] willing to refer her to either a gas plant worker or house supervisor to help her out with her weight [...] | | | | | | [place] [address] | | | | | | [phone] | | | | | | | | +--------+---------+ + + + | 03/01/ | Office | Pulmonology | Mukul Clark MD | | | 2020 | Visit | | [address] | | | | | | [place] | | | | | | [address] | | | | | | | | +--------+---------+ + + + documented as of this encounter Visit Diagnoses Not on filedocumented in this encounter"
--- OUTSIDE RECORDS SUMMARY | ~2019-09-27 | XMS | Encounter Summary ---
Demographics + + + | Address | [address] | | | [place] [address] | + + + | Home Phone [...] Providers + +------+ + | Care Licensed Insurance Agent Name | Role | Phone | [...] Fall, | | | | [address] [place] | [address] [place] | initial encounter; | | 01/10/ | | [place] [address] | [place] [address] | Generalized | | 2018 | | [phone] | [phone] | weakness; Paroxysmal | | | | | | atrial tachycardia | | | | | Nohemi Gregory MD | ([facility]); Chronic | | | | | [address] | obstructive | | | | | [place], [place] | pulmonary disease, | | | | | [id number] | unspecified COPD | | | | | | type ([facility]); | | | | | | Gastroesophageal [...] Color, UA Straw Clarity, UA Clear Specific [place] 1.028 PH UA 6.0 Glucose, UA Negative [...] a change in settings. Respiratory Therapy Supplies [facility] Please provide patient with necessary CPAP supplies (she did not specify, okay to send ord er as appropriate) Diagnosis Code(s)327.23 . Length of Need 99 months. Please send order to [facility]. roflumilast 500 mcg tablet Take 1 tablet [...] [facility]. | | | | | | [...] Malik : 1965: Age: 53 y.o. MedRec: [id number] PCP: Juan Cherry DO Admission date: 2018 [...] Anterolateral/lateral leads Confirmed by RAFA WELLS MD ([id number]) on 01/09/2018 6:50:03 AM POC Glucose Collection [...] PH UA 6.0 5.0 - 8.0 Specific [place] 1.028 1.001 - 1.030 PROTEIN UA Negative [...] nodularity. No mediastinal lymphade nopathy, within the vsgcz-sm-npxt. Stable 7 mm nodule in the right [...] might be different from t he original. [place] HOSPITALIST HISTORY & PHYSICAL Patient: Rosario Malik : 1965: Age: 53 y.o. MedRec: [id number] Admission date: 2018 Hospital day # : [...] Maker Patient. Plan was discussed with patient -[facility] Documentation observation -I reviewed relevant imaging, [...] negative / trop normal / EKG [id number] -Treatment: none Relevant Chart Review 10/2017 last [...] [facility]) 10/28/2012 Overview: Managed by [facility] along with hypothyroidism Bilateral renal cysts Complex [...] TOE SURGERY right sided HERNIA REPAIR 11/29/2015 [place] HIATAL HERNIA REPAIR Hiatal hernia HYSTERECTOMY KNEE SURGERY right OTHER SURGICAL HISTORY 02/28/2014 [facility] with Radial approach; Laterality: Left; Surgeon: Jared Mcdonough MD; Location: [facility] Ovarian cysts, not cancer TONSILLECTOMY Age 6 TURBT N/A 11/22/2015 Procedure: Cystoscopy, Hydrodistention & Bladder Biopsy; Surgeon: Andriy Amaya MD ; Location: [facility] MAIN OR WRIST SURGERY right Patient [...] portable then shes on 3 L [place] Historical Provider, pantoprazole (PROTONIX) 40 mg tablet [...] daily Taking Historical Provider, Respiratory Therapy Supplies [facility] Please provide patient with necessary CPAP supplies (she did not specify, okay to send order as appropriate) Diagnosis Code(s)327.23 . Length of Nee d 99 months. Please send order to [facility]. Taking 1 each Loreta London MD Respiratory Therapy Supplies [facility] [...] PH UA 6.0 5.0 - 8.0 Specific [place] 1.028 1.001 - 1.030 PROTEIN UA Negative [...] nodularity. No mediastinal lymphade nopathy, within the cioph-tj-aker. Stable 7 mm nodule in the right [...] and Signed by: Lencho Silva MD Electronically lsiha d: 2018 11:36 AM Electronically signed by: Nohemi Gregory MD 2018 12:40 [facility] documented in this encou nter ED [...] History: Diagnosis Date Adrenal insufficiency ([facility]) possible Anxiety Asthma Benign neoplasm of pituitary gland and craniopharyngeal duct (pouch) ([facility]) 10/28/2012 Overview: Managed by [facility] along with hypothyroidism Bilateral renal cysts Complex [...] TOE SURGERY right sided HERNIA REPAIR 11/29/2015 [place] HIATAL HERNIA REPAIR Hiatal hernia HYSTERECTOMY KNEE SURGERY right OTHER SURGICAL HISTORY 02/28/2014 [facility] with Radial approach; Laterality: Left; Surgeon: Jared Mcdonough MD; Location: [facility] Ovarian cysts, not cancer TONSILLECTOMY Age 6 TURBT N/A 11/22/2015 Procedure: Cystoscopy, Hydrodistention & Bladder Biopsy; Surgeon: Andriy Amaya MD ; Location: [facility] MAIN OR WRIST SURGERY right Medications: [...] 2 times daily. She takes this da [facility] RESPIRATORY THERAPY SUPPLIES [facility] Change CPAP back to 11-14 cm H2O. All necessary suppl ies. No oxygen bleed in. Diagnosis Code(s)327.23. Length of Need: Lifetime. Please send orde r to [facility]. This is not a new order, just a change in settings. RESPIRATORY THERAPY SUPPLIES [facility] Please provide patient with necessary CPAP supplies ( she did not specify, okay to send order as appropriate) Diagnosis Code(s)327.23 . Length of Need 99 months. Please send order to [facility]. ROFLUMILAST (DALIRESP) 500 MCG TABLET Take 1 [...] need oxygen for her CPAP. Ashwin from [place] here at hospital, he states we don't need to send order for oxygen. They provide Ms. Malik with gas oxygen once a week and he has talked to her about it. NO oxygen orders were faxed, per Ashwin at [place]. Ms. Malik will discharge to home with [...] Slept well overnight. Ambulated in hallway with MEDICAL ESTHETICIAN last night. Vitals stable. [facility] - Josh Ordonez RRT - 01/10/2018 2:04 [...] shortness of breath reported . [facility] Eric Lopez RN - 01/09/2018 8:02 PM [...] bedside regarding discharge plans. Rosario lives in [place] with her daughter Juana. She reports 4-5 [...] PCP is Dr Cherry and she uses [facility] pharmacy. Rosario does not anticipate any discharge [...] multiple contributors. ADLs LB Dressing, Level of [place]: supervised LB Dressing Assess/Train, Position: sitting, standing pt needed supervision due to dizziness when sitting and standing that did not resolve with activity Toileting, [place] of [place]: supervised Assistive Device: none Toileting Assess/Train, Position: sitting, standing supervised for safety due to increased dizziness when up Grooming, Level of [place]: supervised Assistive Device: none Grooming Assess/Train, Position: standing Bed Mobility Assistive Device: bed rails Scoot/Bridge, [place]: supervised Supine to Sit, [place]: supervised Sit to Supine, [place] of [place]: supervised Safety Issues: other (see comments) (complained of dizziness going from sit to stand. Did not resolve with activity in standing) Impairments: strength decreased Transfers Bed-Chair, [place] of [place]: supervised Chair-Bed, Level of [place]: supervised Ure-Fdgzb-Nbg, Assistive Device: none Sit-Stand, Level of [place]: supervised Stand-Sit, Level of [place]: supervised Msw-Wxqqb-Fsa, Assistive Device: none Toilet, Level of [place]: supervised Toilet, Assistive Device: none Safety Issues: [...] STG Status new at 01/09/2018 1314 STG [place] Level modified independent at 01/09/2018 1314 STG Adaptive Equipment none at 01/09/2018 1314 LB Dressing Goal Most Recent Value STG Status new at 01/09/2018 1314 STG [place] Level modified independent at 01/09/2018 1314 STG Adaptive Equipment none at 01/09/2018 1314 Tub/Shower Transfer Goal Most Recent Value Tub/Shower Type tub/shower combo at 01/09/2018 1314 STG Status new at 01/09/2018 1314 STG [place] Level modified independent at 01/09/2018 1314 Electronically [...] [place] | | | | | | [address] | | | | | | | | +--------+---------+ + + + | 11/24/ | Office | Cardiology | [place], | | | 2019 | Visit | | SINDHU Erickson [address] | | | | | | [address] [place], | | | | | | [place] [address] | | | | | | [phone] | | | | | | | | +--------+---------+ + + + | 03/01/ | Office | Pulmonology | Mukul Clark MD | | | 2020 | Visit | | [address] | | | | | | [place] | | | | | | [id number] | | | | | | | [...] W?MRN: | | | | | | [id number] | | | [id number] | | | his | | | [...] | | | | | | n [place] | | | | | + +---------+ [...] ST. | [address] | [place] | [phone] | | [facility] | | [address] | | | - LABORATORY | | [...] [address] | [place] | [phone] | | [facility] | | [address] | | | - LABORATORY | | [...] + | [address] | [address] | [place] | [phone] | | [facility] | | [address] | | | - LABORATORY | | [...] + | [address] | [address] | [place] | [phone] | | [facility] | | [address] | | | - LABORATORY | | [...] + + | Performing | Address | City/State/[facility] | Phone Number | | Organization | | | | + + + + + | [address] | [address] | [place] | [phone] | | [facility] | | [address] | | | - LABORATORY | | [...] [address] | [place] | [phone] | | [facility] | | [address] | | | - LABORATORY | | [...] + | [address] | [address] | [place] | [phone] | | [facility] | | [address] | | | - LABORATORY | | [...] + + | Performed at: 01 - [employer] [address] [place] [address], | REFERENCE LAB | | [place] [id number] Entry Level Accounting Clerk: Naomie Evans, Phone: | [place] | | [phone] | | + + + + + + + + | Performing | Address | City/State/Zipcode | Phone Number | | Organization | | | | + + + + + | REFERENCE LAB | [address] | [place], [place] | [phone] | | [facility] | [address] [facility] | [address] | | + + + + + [...] | | | | | | [employer] | | | | | [...] [address] | [place] | [phone] | | [facility] | | [address] | | | - LABORATORY | | [...] + + | Performing | Address | City/State/[facility] | Phone Number | | Organization | | | | + + + + + | [facility] | [address] | [place] | [phone] | | [facility] | | [address] | | | - LABORATORY | | [...] + | [facility] | [address] | [place] | [phone] | | [facility] | | [address] | | | - LABORATORY | | [...] mL/min/1.73m2 | [facility] | | | [place] | RATE,ESTIMATED | | MEDICAL | | | | mL/min/1.51w7Koor than | | CENTER - | | [...] ST. | [address] | [place], [place] | [phone] | | [facility] | | [address] | | | - LABORATORY | | [...] [address] | [place] | [phone] | | [facility] | | [address] | | | - LABORATORY | | [...] | | | | | | [employer] | | | | | [...] [address] | [place] | [phone] | | [facility] | | [address] | | | - LABORATORY | | [...] + | [facility] | [address] | [place] | [phone] | | [facility] | | [address] | | | - LABORATORY | | [...] [address] | [place] | [phone] | | [facility] | | [address] | | | - LABORATORY | | [...] | | | [facility] | | | [facility] | | | - LABORATORY | + + + + + + + + | Performing | Address | City/State/Zipcode | Phone Number | | Organization | | | | + + + + + | [facility] | [address] | [place] | [phone] | | [facility] | | [address] | | | - LABORATORY | | [...] + | [facility] | [address] | [place] | [phone] | | [facility] | | [address] | | | - LABORATORY | | [...] | | | | | | [employer] | | | | | [...] [address] | [place] | [phone] | | [facility] | | [address] | | | - LABORATORY | | [...] + | [facility] | [address] | [place] | [phone] | | [facility] | | [address] | | | - LABORATORY | | [...] [address] | [place] | [phone] | | [facility] | | [address] | | | - LABORATORY | | [...] + | [facility] | [address] | [place] | [phone] | | [facility] | | [address] | | | - LABORATORY | | [...] ST. | [address] | [place] | [phone] | | [facility] | | [address] | | | - LABORATORY | | [...] [address] | [place] | [phone] | | [facility] | | [address] | | | - LABORATORY | | [...] | Urine | | Yellow, Straw | [facility] | | | | | [...] - 1.030 | [facility] | | | [place], | | | [facility] | | [address] | [place] | [phone] | | [facility] | | [address] | | | - LABORATORY | | [...] mediastinal | | | lymphadenopathy, within the zzivf-pq-wzrs. Stable 7 mm nodule in | | [...] vocal cord nodularity. Nomediastinal lymphadenopathy, within the zrkeu-pc-ochk. Stable | | 7 mm nodule inthe right apex. Bullous changes in the left apex. Small blebs in the | | rightapex. No suspicious lytic or blastic bone lesions. Evidence of a healedsternal | | fracture. There appears to be fusion of the articular pillars at thelevel | | T3-[id number] -No CT evidence for an acute intracranial [...] nodularity. No | |mediastinal lymphadenopathy, within the cqlvb-tg-czzv. Stable 7 mm nodule in | |the [...] XR Chest AP Portable (2018 10:06 AM [facility]) + + | Specimen | + [...] + | [facility] | [address] | [place] | [phone] | | [facility] | | [address] | | | - LABORATORY | | [...] + | [facility] | [address] | [place] | [phone] | | [facility] | | [address] | | | - LABORATORY | | [...] ST. | [address] | [place] | [phone] | | [facility] | | [address] | | | - LABORATORY | | [...] [address] | [place] | [phone] | | [facility] | | [address] | | | - LABORATORY | | [...] | | | | | | [employer] | | | | | [...] [address] | [place] | [phone] | | [facility] | | [address] | | | - LABORATORY | | [...] | 0.93 | 0.60 - 1.30 | [facility] | | | | | mg/dL | [facility] | | | | | | MEDICAL | | | | | | CENTER - | | | | | | LABORATORY | | + + + + + + | eGFR, | >60Comment: GLOMERULAR | >=60 | [facility] | | | non- | FILTRATION | mL/min/1.73m2 | [facility] | | | [place] | RATE,ESTIMATED | | MEDICAL | | | | mL/min/1.59v9Xnvd than | | CENTER - | | [...] [address] | [place] | [phone] | | [facility] | | [address] | | | - LABORATORY | | [...] [address] | [place] | [phone] | | [facility] | | [address] | | | - LABORATORY | | [...] [address] | [place] | [phone] | | [facility] | | [address] | | | - LABORATORY | | [...] | | | | RAFA WELLS MD ([id number]) | | | | | | on [...] Shortness of Breath, | | | Starting [facility] 01/08/18 at 1705 | | + [...] | | | dose on [facility] 01/08/18 at 1500 | | | [...] | | | Anxiety, Starting [facility] 01/08/18 at | | | | [...] | | CT Scan, Starting [facility] 01/08/18 | | | | | [...] | | | dose on [facility] 01/08/18 at 1900, | | | [...] | | | | | | [facility] 01/09/2018 15:38, , , | | | [...] | | First dose on [facility] 01/08/18 at | | AM PST [...]
--- OUTSIDE RECORDS SUMMARY | ~2019-09-27 | XMS | Encounter Summary ---
Demographics + + + | Address | [address] | | | [place] [address] | + + + | Home Phone [...] Providers + +------+ + | Care Marketing Intelligence Manager Name | Role | Phone | [...] | | [place] | [place] | | | | | [address] | [place] [address] | | | | | [phone] | [phone] | | | | | | | [...] PM PDTReceived fax request for Hydroxyzine from [facility]. Routed to Dr. Weber for consideration. documented in this encounter Plan of Treatment +--------+---------+ + + + | Date | Type | Specialty | Care Team | Description | +--------+---------+ + + + | 09/27/ | Office | Sleep Medicine | Meghan Garcia MD | | | 2019 | Visit | | [address] [facility] | | | | | | [place] | | | | | | [address] | | | | | | | | +--------+---------+ + + + | 11/24/ | Office | Cardiology | [place], | | | 2019 | Visit | | [address]ks[address] | | | | | | [place], | | | | | | [place] [address] | | | | | | [phone] | | | | | | | [...]
--- OUTSIDE RECORDS SUMMARY | ~2019-09-27 | XMS | Encounter Summary ---
Demographics + + + | Address | [address] | | | [place] [address] | + + + | Home Phone [...] Team Providers + +------+ + | Care Eeo Officer Name | Role | Phone | [...] | esophagitis | [address] | [place] | | | | | presence not | [place], [place] | [place], | | | | | specified | [address] | [place] [address] | | | | | Procedures | Phone: | Phone: | | | | | [place] Gastric | [phone] | [phone] | | | | | Emptying | Fax: | Fax: | | | | | | [phone] | [phone] | +--------+--------+ + + + + Encounter Details +--------+ + + + + | Date | Type | Department | Care Team | Description | +--------+ + + + + | 04/02/ | Hospital | [facility] | Dio Yun | | | 2017 | Encounter | MED CTR NUCLEAR | MD [address] | | | | | MEDICINE [address] | [place] OLMEDO [address] | | | | | [place], | [place], [place] | | | | | [place] [address] | [address] | | | | | [phone] | [phone] | | | | | | | [...] | 0 | 10/13/19 | | | Rajlcqthva-ZNZJ-Itdm | mouth as needed. | | | 16 | 7 | | -Cod [id number] MG | | | | | | [...] | | | | | | [place] [address] | | | | | | [phone] | | | | | | | | +--------+---------+ + + + | 03/01/ | Office | Pulmonology | Mukul Clark MD | | | 2020 | Visit | | [address] | | | | | | [place] | | | | | | [address] | | | | | | | [...] Mcbride Results In - 04/02/2016 11:38 AM [facility] NUCLEAR GASTRIC EMPTYING STUDY 04/02/2016 | [...]
--- OUTSIDE RECORDS SUMMARY | ~2019-09-27 | XMS | Encounter Summary ---
Demographics + + + | Address | [address] | | | [place] [address] | + + + | Home Phone [...] Team Providers + +------+ + | Care Developmental Services Worker Name | Role | Phone | [...] + + | 09/16/ | Telephone | [facility] | Kevin [place], | Appointment | | 2014 | | PULMONARY [address] | MD [address] | (CANCELLING | | | | [place], | [place], [place] | APPOINTMENT) | | | | [place] [address] | [address] | | | | | [phone] | | | +--------+ + + + [...] she is not seeing a physician at [facility] and will not be rescheduling. Patients appointment [...] 2019 | Visit | | [address] [facility] | | | | | | [place] | | | | | | [address] | | | | | | | | +--------+---------+ + + + | 11/24/ | Office | Cardiology | [place], | | | 2019 | Visit | | SINDHU Erickson [address] | | | | | | [place], | | | | | | [place] [address] | | | | | | [phone] | | | | | | | | +--------+---------+ + + + | 03/01/ | Office | Pulmonology | Mukul Clark MD | | | 2020 | Visit | | [address] | | | | | | [place] | | | | | | [phone] | | | | | | | | +--------+---------+ + + + documented as of this encounter Visit Diagnoses Not on filedocumented in this encounter"
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
--- OUTSIDE RECORDS SUMMARY | ~2019-09-27 | XMS | Encounter Summary ---
Demographics + + + | Address | [address] | | | [place] [address] | + + + | Home Phone [...] Providers + +------+ + | Care Street Light Servicer Supervisor Name | Role | Phone | [...] + + | 07/24/ | Telephone | [facility] | Andriy Weber | Hematuria; Bladder | | 2017 | | [address] | MD [address] | Pain | | | | [place] | [place] | | | | | [address] | [place] [address] | | | | | [phone] | [phone] | | | | | | | [...] [place] | | | | | | [address] | | | | | | | | +--------+---------+ + + + | 11/24/ | Office | Cardiology | [place], | | | 2019 | Visit | | SINDHU Erickson [address] | | | | | | [place], | | | | | | [place] [address] | | | | | | [phone] | | | | | | | | +--------+---------+ + + + | 03/01/ | Office | Pulmonology | Mukul Clark MD | | | 2020 | Visit | | [address] | | | | | | [place] | | | | | | [address] | | | | | | | | +--------+---------+ + + + documented as of this encounter Visit Diagnoses Not on filedocumented in this encounter"
--- OUTSIDE RECORDS SUMMARY | ~2019-09-27 | XMS | Encounter Summary ---
Demographics + + + | Address | [address] | | | [place] [address] | + + + | Home Phone [...] Providers + +------+ + | Care Multimedia Assistant Name | Role | Phone | [...] [address] | | | | | [place], | [place] | | | | | [place] [address] | [address] | | | | | [phone] | | | +--------+--------+ + + + [...] | | | | | | [place] [address] | | | | | | [phone] | | | | | | | | +--------+---------+ + + + | 03/01/ | Office | Pulmonology | Mukul Clark MD | | | 2020 | Visit | | [address] | | | | | | [place] | | | | | | [phone] | | | | | | | | +--------+---------+ + + + documented as of this encounter Visit Diagnoses Not on filedocumented in this encounter"
--- OUTSIDE RECORDS SUMMARY | ~2019-09-27 | XMS | Encounter Summary ---
Demographics + + + | Address | [address] | | | [place] [address] | + + + | Home Phone [...] Providers + +------+ + | Care Hot Packer Name | Role | Phone | [...] updated | | | | | [address] [facility], | address | | | | | [place] [address] [place] | | | | | | [place] [address] | | | | | | [phone] | | | +--------+ + + + [...] to compare this level with one from [facility]. We will work on trying to [...] 2019 | Visit | | [address] [facility] | | | | | | [place] | | | | | | [address] | | | | | | | | +--------+---------+ + + + | 11/24/ | Office | Cardiology | [place], | | | 2019 | Visit | | SINDHU Erickson [address] | | | | | | [place], | | | | | | [place] [address] | | | | | | [phone] | | | | | | | | +--------+---------+ + + + | 03/01/ | Office | Pulmonology | Mukul Clark MD | | | 2020 | Visit | | [address] | | | | | | [place] | | | | | | [phone] | | | | | | | | +--------+---------+ + + + documented as of this encounter Visit Diagnoses Not on filedocumented in this encounter
--- OUTSIDE RECORDS SUMMARY | ~2019-09-27 | XMS | Encounter Summary ---
Demographics + + + | Address | [address] | | | [place] [address] | + + + | Home Phone [...] + + | 03/29/ | Hospital | [facility] | | | | 2011 | Encounter | MED CTR LABORATORY | | | | | | [address] | | | | | | [place] | | | | | | [address] | | | | | | [phone] | | | +--------+ + + + [...] [place] | | | | | | [address] | | | | | | | | +--------+---------+ + + + | 11/24/ | Office | Cardiology | [place], | | | 2020 | Visit | | SINDHU Erickson [address] | | | | | | [place] | | | | | | [place] [address] | | | | | | [phone] | | | | | | | | +--------+---------+ + + + | 03/01/ | Office | Pulmonology | Mukul Clark MD | | | 2020 | Visit | | [address] | | | | | | [place] | | | | | | [address] | | | | | | | [...] | [facility] | | | | [place] [facility] | | MEDICAL | | | [...] + | [facility] | [address] | [place] | [phone] | | [facility] | | [address] | | | - LABORATORY | | | | + + + + + | [facility] | [address] | [place], [place] | | | [facility] | | [address], [facility] | | | - LABORATORY [...] Reference range applies | ng/mL | [facility] | | | | only to non | | MEDICAL | | | | females. Testing | | CENTER - | | | | Performed: [facility], [address] | | LABORATORY | | | | [address] [place] | | | | | | [address] CLIA: [id number] | | | | | | | | | | + + + + + + + + | Specimen | + + | | + + + + + + + | Performing | Address | City/State/Zipcode | Phone Number | | Organization | | | | + + + + + | [facility] | [address] | [place] | [phone] | | [facility] | | [address] | | | - LABORATORY | | | | + + + + + | [facility] | [address] | [place] | | | [facility] | | [address], [facility] | | | - LABORATORY [...] [facility] | | | | [facility] [place] [facility] | | MEDICAL | | | [...] + | [facility] | [address] | [place], [place] | [phone] | | [facility] | | [address] | | | - LABORATORY | | | | + + + + + | [facility] | [address] | [place], [place] | | | [facility] | | [address] [place] [address] | | | - LABORATORY | | [...] + | [facility] | [address] | [place] | [phone] | | [facility] | | [address] | | | - LABORATORY | | | | + + + + + | [facility] | [address] | [place], [place] | | | [facility] | | [address] | | | - LABORATORY [...] | performed on the [place] | | [facility] | | | | [place] [facility] | | MEDICAL | | | [...] [address] | [place] | [phone] | | [facility] | | [address] | | | - LABORATORY | | | | + + + + + | [facility] | [address] | [place] | | | [facility] | | [address] | | | - LABORATORY | | | | + + + + + documented in this encounter Visit Diagnoses Not on filedocumented in this encounter"
--- OUTSIDE RECORDS SUMMARY | ~2019-09-27 | XMS | Encounter Summary ---
Demographics + + + | Address | [address] | | | [place] [address] | + + + | Home Phone [...] + +------+ + | Care Director Of Event Management Name | Role | Phone | + +------+ + | Juan Cherry DO | PCP | | + +------+ + Encounter Details +--------+ + + + + | Date | Type | Department | Care Team | Description | +--------+ + + + + | 05/03/ | Hospital | [facility] | Ozzie Hayes | | | 2012 | Encounter | MED CTR EMERGENCY | MD Ran [address] | | | | | CENTER [address] | [address] [facility] | | | | | [place], [place] | [place] [address] | | | | | [address] | [phone] | | | | | [phone] | | | +--------+ + + + [...] Ozzie Hayes MD - 05/03/2012 4:24 [place] [address] Patient Name: JADYN SCHMITZ Provider: Unit #: [id number] Location: : 1965 DATE: 05/03/2012 TIME OF [...] Ozzie Hayes MD Emergency Medicine JOB #: [id number] EXT JOB #:[id number] <<Signature on File>> Ozzie Hayes MD05/07/12 2152 [...] [place] | | | | | | [address] | | | | | | | | +--------+---------+ + + + | 11/24/ | Office | Cardiology | [place], | | | 2019 | Visit | | SINDHU Erickson [address] | | | | | | [place] | | | | | | [place] [address] | | | | | | [phone] | | | | | | | | +--------+---------+ + + + | 03/01/ | Office | Pulmonology | Mukul Clark MD | | | 2020 | Visit | | [address] | | | | | | [place] | | | | | | [address] | | | | | | | | +--------+---------+ + + + documented as of this encounter Visit Diagnoses Not on filedocumented in this encounter"
--- OUTSIDE RECORDS SUMMARY | ~2019-09-27 | XMS | Encounter Summary ---
Demographics + + + | Address | [address] | | | [place] [address] | + + + | Home Phone [...] Providers + +------+ + | Care Repairer Switchgear Name | Role | Phone | + [...] [address] | | | | | [place], | [place], | | | | | [place] [address] | [place] [address] | | | | | [phone] | [phone] | | | | | | | [...] [place] | | | | | | [address] | | | | | | | | +--------+---------+ + + + | 11/24/ | Office | Cardiology | [place], | | | 2019 | Visit | | SINDHU Erickson [address] | | | | | | [place] | | | | | | [place] [address] | | | | | | [phone] | | | | | | | | +--------+---------+ + + + | 03/01/ | Office | Pulmonology | Mukul Clark MD | | | 2020 | Visit | | [address] | | | | | | [place] | | | | | | [address] | | | | | | | [...]
--- OUTSIDE RECORDS SUMMARY | ~2019-09-27 | XMS | Encounter Summary ---
Demographics + + + | Address | [address] | | | [place] [address] | + + + | Home Phone [...] Providers + +------+ + | Care Rn Obgyn Name | Role | Phone | [...] | RN | | | | | [place], | | | | | | [place] [address] | | | | | | [phone] | | | +--------+ + + + [...] | | | | | | [place] [address] | | | | | | [phone] | | | | | | | [...]
--- OUTSIDE RECORDS SUMMARY | ~2019-09-27 | XMS | Encounter Summary ---
Demographics + + + | Address | [address] | | | [place] [address] | + + + | Home Phone [...] +------+ + | Care Clock And Watch Hands Dipper Name | Role | Phone | + +------+ + PCP | Unavailable | + +------+ + Encounter Details +--------+ + + + + | Date | Type | Department | Care Team | Description | +--------+ + + + + | 06/09/ | Hospital | [facility] | [place], | | | 2009 | Encounter | MED CTR EMERGENCY | Ozzy Kim MD [address] | | | | | [place] [address] | [address] [facility] | | | | | [place], [place] | [place] [address] | | | | | [address] | [phone] | | | | | [phone] | | | +--------+ + + + [...] [place] | | | | | | [address] | | | | | | | | +--------+---------+ + + + | 11/24/ | Office | Cardiology | [place], | | | 2020 | Visit | | SINDHU Erickson [address] | | | | | | [place] | | | | | | [place] [address] | | | | | | [phone] | | | | | | | | +--------+---------+ + + + | 03/01/ | Office | Pulmonology | Mukul Clark MD | | | 2020 | Visit | | [address] | | | | | | [place] | | | | | | [address] | | | | | | | | +--------+---------+ + + + documented as of this encounter Visit Diagnoses Not on filedocumented in this encounter"
--- OUTSIDE RECORDS SUMMARY | ~2019-09-27 | XMS | Encounter Summary ---
Demographics + + + | Address | [address] | | | [place] [address] | + + + | Home Phone [...] Team Providers + +------+ + | Care Jelly Maker Name | Role | Phone | + +------+ + PCP | Unavailable | + +------+ + Encounter Details +--------+ + + + + | Date | Type | Department | Care Team | Description | +--------+ + + + + | 10/27/ [facility] | | | | 2008 - | Encounter | MED CTR OP REHAB | | | | | | [address] | | | | 11/23/ | | [place] [address] | | | | 2008 | | [phone] | | | +--------+ + + + [...] | | | | | | [place] [address] | | | | | | [phone] | | | | | | | | +--------+---------+ + + + | 03/01/ | Office | Pulmonology | Mukul Clark MD | | | 2020 | Visit | | [address] | | | | | | [place] | | | | | | [address] | | | | | | | | +--------+---------+ + + + documented as of this encounter Visit Diagnoses Not on filedocumented in this encounter"
--- OUTSIDE RECORDS SUMMARY | ~2019-09-27 | XMS | Encounter Summary ---
Demographics + + + | Address | [address] | | | [place] [address] | + + + | Home Phone [...] + +------+ + | Care Professor Of Latin American Studies Name | Role | Phone | + +------+ + | Juan Cherry DO | PCP | | + +------+ + Encounter Details +--------+ + + + + | Date | Type | Department | Care Team | Description | +--------+ + + + + | 09/09/ | Hospital | [facility] GENER[facility] IP | Conversion | Pain | | 2015 | Encounter | CONVERSION [address] | Transaction, | | | | | [address] | Provider Unknown | | | | | [place], [place] | [phone] | | | | | [address] | | | | | | [phone] | | | +--------+ + + + [...] [place] | | | | | | [address] | | | | | | | | +--------+---------+ + + + | 11/24/ | Office | Cardiology | [place], | | | 2019 | Visit | | SINDHU Erickson [address] | | | | | | [place] | | | | | | [place] [address] | | | | | | [phone] | | | | | | | | +--------+---------+ + + + | 03/01/ | Office | Pulmonology | Mukul Clark MD | | | 2020 | Visit | | [address] | | | | | | [place] | | | | | | [address] | | | | | | | [...]
--- OUTSIDE RECORDS SUMMARY | ~2019-09-27 | XMS | Encounter Summary ---
Demographics + + + | Address | [address] | | | [place] [address] | + + + | Home Phone [...] Providers + +------+ + | Care Mortgage Operations Manager Name | Role | Phone [...] [place] | | | | | [address] | [place] [address] | | | | | [phone] | [phone] | | | | | | | [...] | | | | | | [place] [address] | | | | | | [phone] | | | | | | | [...]
--- OUTSIDE RECORDS SUMMARY | ~2019-09-27 | XMS | Encounter Summary ---
Demographics + + + | Address | [address] | | | [place] [address] | + + + | Home Phone [...] Team Providers + +------+ + | Care Trailers And Motor Homes Salesperson Name | Role | Phone | + +------+ + | Juan Cherry DO | PCP | | + +------+ + Encounter Details +--------+---------+ + + + | Date | Type | Department | Care Team | Description | +--------+---------+ + + + | 10/31/ | Office | [facility] | Andriy Weber | Interstitial | | 2016 | Visit | [address] | [address] | cystitis (Primary | | | | [place], [place] | [address] [place] | Dx) | | | | [address] | [place] [address] | | | | | [phone] | [phone] | | | | | | | [...] have not thoroughly proofread this note, and silk screen frame assembler err ors may occur. documented in th [...] [place] | | | | | | [address] | | | | | | | | +--------+---------+ + + + | 11/24/ | Office | Cardiology | [place], | | | 2019 | Visit | | SINDHU Erickson [address] | | | | | | [place] | | | | | | [place] [address] | | | | | | [phone] | | | | | | | | +--------+---------+ + + + | 03/01/ | Office | Pulmonology | Mukul Clark MD | | | 2020 | Visit | | [address] | | | | | | [place] | | | | | | [phone] | | | | | | | | +--------+---------+ + + + documented as of this encounter Visit Diagnoses + + | Diagnosis | + + | Interstitial cystitis - Primary Chronic interstitial cystitis | + + documented in this encounter"
--- OUTSIDE RECORDS SUMMARY | ~2019-09-27 | XMS | Encounter Summary ---
Demographics + + + | Address | [address] | | | [place] [address] | + + + | Home Phone [...] Providers + +------+ + | Care Certified Master Safecracker Name | Role | Phone | + +------+ + PCP | Unavailable | + +------+ + Encounter Details +--------+ + + + + | Date | Type | Department | Care Team | Description | +--------+ + + + + | 01/29/ | Hospital | [facility] | Ozzy Delcid, | | | 2009 - | Encounter | MED CTR OP REHAB | [address] | | | | | [address] [place] | [address] [place], | | | 02/23/ | | [place] [address] | [place] [address] | | | 2009 | | [phone] | [phone] | | | | | | | [...] [place] | | | | | | [address] | | | | | | | | +--------+---------+ + + + | 11/24/ | Office | Cardiology | [place], | | | 2019 | Visit | | SINDHU Erickson [address] | | | | | | [place] | | | | | | [place] [address] | | | | | | [phone] | | | | | | | | +--------+---------+ + + + | 03/01/ | Office | Pulmonology | Mukul Clark MD | | | 2020 | Visit | | [address] | | | | | | [place] | | | | | | [address] | | | | | | | | +--------+---------+ + + + documented as of this encounter Visit Diagnoses Not on filedocumented in this encounter"
--- OUTSIDE RECORDS SUMMARY | ~2019-09-27 | XMS | Encounter Summary ---
Demographics + + + | Address | [address] | | | [place] [address] | + + + | Home Phone [...] Team Providers + +------+ + | Care Skills Instructor Name | Role | Phone | [...] [address] | | | | | [place], | [place], [place] | | | | | [place] [address] | [address] | | | | | [phone] | | | +--------+--------+ + + + [...] [place] | | | | | | [address] | | | | | | | | +--------+---------+ + + + | 11/24/ | Office | Cardiology | [place], | | | 2019 | Visit | | SINDHU Erickson [address] | | | | | | [place], | | | | | | [place] [address] | | | | | | [phone] | | | | | | | | +--------+---------+ + + + | 03/01/ | Office | Pulmonology | Mukul Clark MD | | | 2020 | Visit | | [address] | | | | | | [place] | | | | | | [address] | | | | | | | | +--------+---------+ + + + documented as of this encounter Visit Diagnoses Not on filedocumented in this encounter"
--- OUTSIDE RECORDS SUMMARY | ~2019-09-27 | XMS | Encounter Summary ---
Demographics + + + | Address | [address] | | | [place] [address] | + + + | Home Phone [...] Providers + +------+ + | Care Paper Winder Name | Role | Phone | [...] | | | | unspecified | | [address] | | | | | laterality | | Phone: | | | | | Primary | | [phone] | | | | | localized | | Fax: | | | | | osteoarthros | | [phone] | | | | | is of hand, | | | | | | | unspecified | | | | | | | laterality | | | | | | | [[id number] | | | | | | | Procedures | | | | | | | MO REPAIR | | | | | | [...] [facility] | Jesus Brady | | | 2018 | Encounter | MED CTR OR INTRA OP | J, DO [address] | | | | | [address] | [address] [place], [place] | | | | | [place], [place] | [address] | | | | | [address] | [phone] | | | | | [phone] | | | +--------+ + + + [...] Instructions Instructions Daniela Caro RN - 06/17/2018[facility] Follow all instructions you are given for how long not to eat or drink before your proce dure. Be sure your doctor knows what medicines and drugsyou take. This includes mdsi-qad-mwg nter medicines, herbs, supplements, alcohol or other [...] adam p you safe. Date Last Reviewed: 01/25/201619990971-1707 [employer]. [address] [place] [address]. All righ ts reserved. This information is not intended as a substitute for professional medical care. Always follow your healthcare professional's instructions. [facility] Post-op Instructions - Thumb Surgery The following instructions are meant to guide you following surgery until your first post-o perative visit 7-12 days later. For any problems or questions, please call our office at [phone], Friday through Friday, 9:00 am - 5:00 [...] that you may have received from the [facility], advice from friends, family members, Julep leaders, Cursogram clerks, fox lee, Anu, Dr. Jain, Dr. Weinstein, sports heroes, etc. If unsure, please call our office. Thank you, Jesus Brady D.O. [facility] [address] [place] [address] Your post op appointment is scheduled for Friday06/29/18 at 9:15am. Please check in at 8:45 am for X-rays at the [facility]. documented in this encounter Medications at [...] signed by: Jesus Brady DO, 06/18/2018 14:06 [facility] signed by Jesus Brady DO at [...] PA-C, and ew radiographs were obtained at [facility]. She de nies any swelling, numbness [...] FOR WHEEZING ; Therapy: 14Aug2012 to (Last Rx:[id number]) Requested for: 14Aug2012 Ordered Cetirizine HCl - 10 MG Oral Tablet; TAKE ONE TABLET BY MOUTH EVERY DAY; Therapy: 25Jun2015 to (Evaluate:28Apr2018) Requested for: 98Vvf1455; Last Rx:02Jun2017 Ordered Daliresp 500 MCG Oral Tablet; TAKE ONE TABLET BY MOUTH EVERY DAY; Therapy: 24May2013 to (Evaluate:20Jun2018) Requested for: 58Ima7578; Last Rx:53Ddb7318 Ordered diazePAM 10 MG Oral Tablet; take 1 tablet 30 minutes prior to appointment; Therapy: 12Nov2016 to (Last Rx:59Til2647) Ordered Digoxin 125 MCG Oral Tablet; TAKE 1 TAB ONCE DAILY; Therapy: 31Jul2017 to Recorded Fluticasone Propionate 50 MCG/ACT Nasal Suspension; INSTILL TWO SPRAYS IN EACH NOSTRIL DAILY; Therapy: 23Mar2018 to (Evaluate:64Awq1065) Requested for: 23Mar2018; Last Rx:23Mar2018 Ordered Gabapentin 800 MG Oral Tablet; TAKE 1 TABLET BY MOUTH 3 TIMES DAILY; Therapy: 55Err5078 to (Evaluate:15Zma0575) Requested for: 96Kdj0542; Last Rx:31Boz6621 Ordered hydrOXYzine HCl - 25 MG Oral Tablet; TAKE 1 TABLET AT BEDTIME Requested for: 28Puq4783; Last Rx:07Vyk2960; Status: ACTIVE - Transmit to Pharmacy - Awaiting Verification Ordered Ipratropium-Albuterol 0.5-2.5 (3) MG/3ML Inhalation Solution; Therapy: 08Zfw5631 to Recorded Levothyroxine Sodium 75 MCG Oral Tablet; TAKE ONE TABLET BY MOUTH EVERY DAY; Therapy: 25Ubu8586 to (Evaluate:51Fhq5730) Requested for: 99Xzv0338; Last Rx:53Efn1134 Ordered Magnesium 200 MG Oral Tablet; TAKE 1 TABLET DAILY DIRECTED; Therapy: 25Gwh9544 to Recorded Meclizine HCl - 12.5 MG Oral Tablet; TAKE 1 TABLET 3 TIMES DAILY NEEDED; Therapy: 38Syb0770 to (Evaluate:67Pzk1985) Requested for: 10Yhy2172; Last Rx:77Nvb7588 Ordered metFORMIN HCl - 500 MG Oral Tablet; TAKE 1 TABLET BY MOUTH EVERY 12 HOURS WITH FOOD; Therapy: 98Hhy4731 to (Evaluate:70Pdm5314) Requested for: 28Apr2018; Last Rx:28Apr2018; Status: ACTIVE - Transmit to Pharmacy - Awaiting Verification Ordered Nystatin 397567 UNIT/ML Mouth/Throat Suspension; SWISH AND SWALLOW 5 ML 4 TIMES DAILY FOR 7 DAYS; Therapy: 21Ewe8722 to (Last Rx:21Gry9003) Requested for: 51Yjf7626 Ordered Oxybutynin Chloride 5 MG Oral Tablet; Take 1 daily; Therapy: (Recorded:18Mar2017) to Recorded Pantoprazole Sodium 40 MG Oral Tablet Delayed Release; TAKE 1 TABLET DAILY; Therapy: 18Mar2017 to Recorded predniSONE 10 MG Oral Tablet; Take one tablet daily; Therapy: 34Nwl2951 to (Evaluate:21Mzn6120) Requested for: 09Jun2015 Recorded Propranolol HCl - 10 MG Oral Tablet; TAKE ONE TABLET BY MOUTH TWICE DAILY; Therapy: 17Rmv3091 to (Evaluate:66Zcf7724) Requested for: 16Dec2017; Last Rx:16Dec2017 Ordered SUMAtriptan Succinate 100 MG Oral Tablet; TAKE 1 TAB BY MOUTH DAILY AT ONSET OF HEADACHE. MAY REPEAT DOSE IN 2 HOURS IF NEEDED. 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 Postoperative diagnosis: Same SURGICAL PROCEDURE: Procedure(s) (LRB): Right Basal Joint Arthroplasty, tendon interposition (Right) INDICATIONS: Arthritis IMPLANTS: * No implants in log * surgeon: Jesus Brady DO assistant store leader: Elías Last PA-C ANESTHESIOLOGIST: Anesthesiologist: Ra Cardona [...] | | | | | | [place] [address] | | | | | | [phone] | | | | | | | | +--------+---------+ + + + | 03/01/ | Office | Pulmonology | Mukul Clark MD | | | 2020 | Visit | | [address] | | | | | | [place] | | | | | | [address] | | | | | | | | +--------+---------+ + + + documented as of this encounter Procedures + +--------+ + + + | Procedure Name | Priori | Date/Time | Associated Diagnosis | Comments | | | ty | | | | + +--------+ + + + | FL ÁNGLE STATS NO | Routin | 06/18/2018 | [...] [address] | [place] | [phone] | | [facility] | | [address] | | | - LABORATORY | | [...] Shortness of Breath, | | | Starting [facility] 06/18/18 at 1542, For | | [...] | mL/hr | | | CONTINUOUS, Starting Caery 4/25/19 | | PM PDT | | [...]
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
--- OUTSIDE RECORDS SUMMARY | ~2019-09-27 | XMS | Encounter Summary ---
Demographics + + + | Address | [address] | | | [place] [address] | + + + | Home Phone [...] Team Providers + +------+ + | Care Calender Roll Operator Name | Role | Phone [...] + + | 09/26/ | Telephone | [facility] | Kevin Sandoval, | Other (increased | | 2014 | | PULMONARY [address] | MD [address] | shortness of breath) | | | | [place], | [place] | | | | | [place] [address] | [id number] | | | | | [phone] | | | +--------+ + + + [...] this message. Prednisone and levaquin called to [facility]. A follow up [facility] was scheduled for 10/10/14. Advised Rosario to [...] fever or acute illness. Ginny sapp uses [facility] [address] 11: 01 AM PDTdocumented in [...] | | | | | | [place] [address] | | | | | | [phone] | | | | | | | | +--------+---------+ + + + | 03/01/ | Office | Pulmonology | Mukul Clark MD | | | 2020 | Visit | | [address] | | | | | | [place] | | | | | | [address] | | | | | | | | +--------+---------+ + + + documented as of this encounter Visit Diagnoses Not on filedocumented in this encounter"
--- OUTSIDE RECORDS SUMMARY | ~2019-09-27 | XMS | Encounter Summary ---
Demographics + + + | Address | [address] | | | [place] [address] | + + + | Home Phone [...] Team Providers + +------+ + | Care Recorder Helper Seismograph Name | Role | Phone | + +------+ + | Juan Cherry DO | PCP | | + +------+ + Encounter Details +--------+ + + + + | Date | Type | Department | Care Team | Description | +--------+ + + + + | 09/09/ | Hospital | [facility] | Conversion | Pain | | 2015 | Encounter | CONVERSION [address] | Transaction, | | | | | [address] | Provider Unknown | | | | | [place], [place] | [phone] | | | | | [address] | | | | | | [phone] | | | +--------+ + + + [...] | | | | | [facility]. | | | | [...] [place] | | | | | | [address] | | | | | | | | +--------+---------+ + + + | 11/24/ | Office | Cardiology | [place], | | | 2019 | Visit | | SINDHU Erickson [address] | | | | | | [place] | | | | | | [place] [address] | | | | | | [phone] | | | | | | | | +--------+---------+ + + + | 03/01/ | Office | Pulmonology | Mukul Clark MD | | | 2020 | Visit | | [address] | | | | | | [place] | | | | | | [address] | | | | | | | [...]
--- OUTSIDE RECORDS SUMMARY | ~2019-09-27 | XMS | Encounter Summary ---
Demographics + + + | Address | [address] | | | [place] [address] | + + + | Home Phone [...] + +------+ + | Care Water Main Pipe Layer Name | Role | Phone [...] Alonso MD | | | | | [place], | | | | | | [place] [address] | | | | | | [phone] | | | +--------+--------+ + + + [...] [place] | | | | | | [address] | | | | | | | | +--------+---------+ + + + | 11/24/ | Office | Cardiology | [place], | | | 2020 | Visit | | SINDHU Erickson [address] | | | | | | [place] | | | | | | [place] [address] | | | | | | [phone] | | | | | | | | +--------+---------+ + + + | 03/01/ | Office | Pulmonology | Mukul Clark MD | | | 2020 | Visit | | [address] | | | | | | [place] | | | | | | [address] | | | | | | | | +--------+---------+ + + + documented as of this encounter Visit Diagnoses Not on filedocumented in this encounter"
--- OUTSIDE RECORDS SUMMARY | ~2019-09-27 | XMS | Encounter Summary ---
Demographics + + + | Address | [address] | | | [place] [address] | + + + | Home Phone [...] | | | | OP [address] | [place] | | | | | [place] | [id number] | | | | | [address] | | | | | | [phone] | | | +--------+ + + + [...] 11:[facility] [address] [place] [address] Physical Therapy Discharge Note This discharge is [...] | | | | | | [place] [address] | | | | | | [phone] | | | | | | | | +--------+---------+ + + + | 03/01/ | Office | Pulmonology | Mukul Clark MD | | | 2020 | Visit | | [address] | | | | | | [place] | | | | | | [address] | | | | | | | | +--------+---------+ + + + documented as of this encounter Visit Diagnoses Not on filedocumented in this encounter"
--- OUTSIDE RECORDS SUMMARY | ~2019-09-27 | XMS | Encounter Summary ---
Demographics + + + | Address | [address] | | | [place] [address] | + + + | Home Phone [...] Author | [facility] | | | [...] Providers + +------+ + | Care Boat Worker Name | Role | Phone | [...] | 08/20/ | Telephone | [facility] [place] | [place] | NISHA | | 2019 | | CARDIOLOGY [address] | SINDHU Erickson [address] | | | | | [place], | [place], | | | | | [place] [address] | [place] [address] | | | | | [phone] | [phone] | | | | | | | [...] wants to do her fasting lab at [facility] in [place]. Not finding orders in [employer], in-box sent to Lizy Nieto /ANN to have orders created and fax them to [facility] in [place]. elephone Encounter - Lizy Nieto Shredding Machine Operator - 08/20/2018 2:28 PM PDTPatient scheduled for [...] [place] | | | | | | [address] | | | | | | | | +--------+---------+ + + + | 11/24/ | Office | Cardiology | [place], | | | 2019 | Visit | | SINDHU Erickson [address] | | | | | | [place] | | | | | | [place] [address] | | | | | | [phone] | | | | | | | [...]
--- OUTSIDE RECORDS SUMMARY | ~2019-09-27 | XMS | Encounter Summary ---
Demographics + + + | Address | [address] | | | [place] [address] | + + + | Home Phone [...] Team Providers + +------+ + | Care Mexican Food Machine Tender Name | Role | Phone [...] | | | | | pulmonary | [address] | [address] | | | | | disease, | [place], | [place] | | | | | unspecified | [place] [address] | [place], [place] | | | | | COPD type | Phone: | [address] | | | | | (HCC) | [phone] | Phone: | | | | | Pulmonary | Fax: | [phone] | | | | | emphysema, | [phone] | Fax: | | | | | unspecified | | [phone] | | | | | emphysema | | | | | | | type ([facility]) | | | +--------+ + + + + + Encounter Details +--------+---------+ + + + | Date | Type | Department | Care Team | Description | +--------+---------+ + + + | 05/21/ | Office | [facility] | Sharonda Delmycaitie, | Chronic obstructive | | 2017 | Visit | MED CTR CARDIAC | [address] | pulmonary disease, | | | | REHABILITATION [address] | [place], | unspecified COPD | | | | [address] [place] | [place] [address] | type (HCC) (Primary | | | | [place] [address] | [phone] | Dx) | | | | [phone] | | | +--------+---------+ + + + [...] Herron RRT - 05/21/2016 10:37 AM PDT [facility] [address] [place] [address] Cardiac Rehab Date: 05/21/2016 Patient Information Patient [...] [place] | | | | | | [address] | | | | | | | | +--------+---------+ + + + | 11/24/ | Office | Cardiology | [place], | | | 2019 | Visit | | SINDHU Erickson [address] | | | | | | [place], | | | | | | [place] [address] | | | | | | [phone] | | | | | | | | +--------+---------+ + + + | 03/01/ | Office | Pulmonology | Mukul Clark MD | | | 2020 | Visit | | [address] | | | | | | [place] | | | | | | [address] | | | | | | | | +--------+---------+ + + + documented as of this encounter Visit Diagnoses + + | Diagnosis | + + | Chronic obstructive pulmonary disease, unspecified COPD type (HCC) - Primary | + + documented in this encounter"
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
--- OUTSIDE RECORDS SUMMARY | ~2019-09-27 | XMS | Encounter Summary ---
Demographics + + + | Address | [address] | | | [place] [address] | + + + | Home Phone [...] Providers + +------+ + | Care Booking Officer Name | Role | Phone | + +------+ + | Juan Cherry DO | PCP | | + +------+ + Encounter Details +--------+ + + + + | Date | Type | Department | Care Team | Description | +--------+ + + + + | 02/08/ | Abstract | [facility] [place] | [place], | | | 2013 | | CARDIOLOGY [address] | SINDHU Erickson [address] | | | | | [place], | [place], | | | | | [place] [address] | [place] [address] | | | | | [phone] | [phone] | | | | | | | [...] [place] | | | | | | [address] | | | | | | | | +--------+---------+ + + + | 11/24/ | Office | Cardiology | [place], | | | 2019 | Visit | | SINDHU Erickson [address] | | | | | | [place] | | | | | | [place] [address] | | | | | | [phone] | | | | | | | | +--------+---------+ + + + | 03/01/ | Office | Pulmonology | Mukul Clark MD | | | 2020 | Visit | | [address] | | | | | | [place] | | | | | | [address] | | | | | | | | +--------+---------+ + + + documented as of this encounter Visit Diagnoses Not on filedocumented in this encounter"
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
--- OUTSIDE RECORDS SUMMARY | ~2019-09-27 | XMS | Encounter Summary ---
Demographics + + + | Address | [address] | | | [place] [address] | + + + | Home Phone [...] Providers + +------+ + | Care Chief Clinical Dietitian Name | Role | Phone | + [...] | | central | [address] | [place] | | | | | sleep apnea | [address] | [place], | | | | | [place] | [place], | [place] [address] | | | | | (obstructive | [place] [address] | Phone: | | | | | sleep | Phone: | [phone] | | | | | apnea) | [phone] | Fax: | | | | | Procedures | Fax: | [phone] | | | | | [place] POLYSOM | [phone] | | | | | | 6/>YRS [...] | 02/08/ | Hospital | [facility] | Kevin Sandoval, | | | 2013 | Encounter | MED CTR SLEEP | [address] | | | | | [place] [address] [place] | [place] | | | | | [place] | [address] | | | | | [address] | | | | | | [phone] | | | +--------+ + + + [...] Polysomnography under "Media" se ction in the [employer] EMR. The patient brought her own fullface [...] Pulmonary and Critical Care Medicine NBASE SCAN [facility] - 02/18/2014 12:00 AM PSTAssociated Order(s): [...] | | | | | | [place] [address] | | | | | | [phone] | | | | | | | | +--------+---------+ + + + | 03/01/ | Office | Pulmonology | Mukul Clark MD | | | 2020 | Visit | | [address] | | | | | | [place] [facility] [place] | | | | | | [address] | | | | | | | [...]
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
--- OUTSIDE RECORDS SUMMARY | ~2019-09-27 | XMS | Encounter Summary ---
Demographics + + + | Address | [address] | | | [place] [address] | + + + | Home Phone [...] Team Providers + +------+ + | Care Cello Teacher Name | Role | Phone | [...] | PULMONARY [address] | RN | ([facility]); COPD (chronic | | | | [place], | | obstructive | | | | [place] [address] | | pulmonary disease) | | | | [phone] | | ([facility]) | +--------+ + + + [...] | | | | | | [place] [address] | | | | | | [phone] | | | | | | | | +--------+---------+ + + + | 03/01/ | Office | Pulmonology | Mukul Clark MD | | | 2020 | Visit | | [address] | | | | | | [place] | | | | | | [address] | | | | | | | [...]
--- OUTSIDE RECORDS SUMMARY | ~2019-09-27 | XMS | Encounter Summary ---
Demographics + + + | Address | [address] | | | [place] [address] | + + + | Home Phone [...] Providers + +------+ + | Care Neon Tube Bender Name | Role | Phone | [...] + | 05/28/ | Refill | [facility] | Kade Hoffman MD | Medication Problem | | 2013 | | [facility] | [address] [facility] | ([facility]) | | | | [address] | [place] [address] | | | | | [address] [facility] | [phone] | | | | | [facility] [place] | | | | | | [address] | | | | | | [phone] | | | +--------+--------+ + + + [...] RN - 05/28/2013 10:54 AM [facility] were [facility] [...] [place] | | | | | | [address] | | | | | | | | +--------+---------+ + + + | 11/24/ | Office | Cardiology | [place], | | | 2019 | Visit | | SINDHU Erickson [address] | | | | | | [place], | | | | | | [place] [address] | | | | | | [phone] | | | | | | | | +--------+---------+ + + + | 03/01/ | Office | Pulmonology | Mukul Clark MD | | | 2020 | Visit | | [address] | | | | | | [place] | | | | | | [address] | | | | | | | | +--------+---------+ + + + documented as of this encounter Visit Diagnoses Not on filedocumented in this encounter"
--- OUTSIDE RECORDS SUMMARY | ~2019-09-27 | XMS | Encounter Summary ---
Demographics + + + | Address | [address] | | | [place] [address] | + + + | Home Phone [...] Providers + +------+ + | Care Brand Representative Name | Role | Phone | [...] | (obstructive | [address] | [place] | | | | | sleep | ST [place] | [place], | | | | | apnea) | [place], [place] | [place] [address] | | | | | Procedures | [address] | Phone: | | | | | RI POLYSOM | Phone: | [phone] | | | | | 6/>YRS SLEEP | [phone] | Fax: | | | | | 4/> ADDL | Fax: | [phone] | | | | | ALESSIA ATTND | [phone] | | | | | | RI POLYSOM | | | | | | [...] sleep apnea) | | | | [address] [place] | [place] | (Primary Dx) | | | | [place] [address] | [address] | | | | | [phone] | | | +--------+ + + + [...] | | | | | | [place] [address] | | | | | | [phone] | | | | | | | | +--------+---------+ + + + | 03/01/ | Office | Pulmonology | Mukul Clark MD | | | 2020 | Visit | | [address] | | | | | | [place] | | | | | | [address] | | | | | | | | +--------+---------+ + + + + + +--------+ + + | Name | Type | Priori | Associated Diagnoses | Order Schedule | | | | ty | | | + + +--------+ + + | * [facility] - | Outpatient [...]
--- OUTSIDE RECORDS SUMMARY | ~2019-09-27 | XMS | Encounter Summary ---
Demographics + + + | Address | [address] | | | [place] [address] | + + + | Home Phone [...] Team Providers + +------+ + | Care Packing Floor Worker Name | Role | Phone | [...] + + | 06/02/ | Office | [facility] | Andriy Weber | Pyuria (Primary Dx) | | 2018 | Visit | [address] | MD [address] | | | | | [place] | [address] [place] | | | | | [address] | [place] [address] | | | | | [phone] | [phone] | | | | | | | [...] a past medical history of Adrenal insufficiency ([facility]); Anxiety; Asthma; Benign neop lasm of pituitary gland and craniopharyngeal duct (pouch) ([facility]) (10/28/2012); Bilateral renal cysts; Complex sleep apnea syndrome; COPD (chronic obstructive pulmonary disease) ([facility]) (201 2); Depression; Diverticulitis; Diverticulosis; Emphysema; Fibromyalgia; [...] takes this da rigoberto Respiratory Therapy Supplies [facility] Please provide patient with necessary CPAP supplies ( she did not specify, okay to send order as appropriate) Diagnosis Code(s)327.23 . Length of Need 99 months. Please send order to [facility]. 1 each 0 Respiratory Therapy Supplies [facility] Change CPAP back to [...] urethra was dilated today to a 26 Congolese with Ewa sounds. She tolerated this wel [...] underwent a urethral dilatation to a 26 Congolese in size. I've asked her to call [...] This document was generated in part using [employer] voice recognition software. Although ever y effort is made to edit the content, technical solutions consultant errors may occur. Occasional wrong word or [...] | | | | | | [place] [address] | | | | | | [phone] | | | | | | | | +--------+---------+ + + + | 03/01/ | Office | Pulmonology | Mukul Clark MD | | | 2020 | Visit | | [address] | | | | | | [place] | | | | | | [address] | | | | | | | [...] 1.001 - 1.030 | | | | [place], | | | | | | UA, [...]
--- OUTSIDE RECORDS SUMMARY | ~2019-09-27 | XMS | Encounter Summary ---
Demographics + + + | Address | [address] | | | [place] [address] | + + + | Home Phone [...] Providers + +------+ + | Care Machine Joint Cutter Name | Role | Phone | + +------+ + | Juan Cherry DO | PCP | | + +------+ + Encounter Details +--------+ + + + + | Date | Type | Department | Care Team | Description | +--------+ + + + + | 04/12/ | Hospital | [facility] | Offenstein, | COPD exacerbation | | 2013 | Encounter | MED CTR GENERIC OP | Loreta Alonso MD | ([facility]) | | | | CONV DEPT [address] | | | | | | [place], | | | | | | [place] [address] | | | | | | [phone] | | | +--------+ + + + [...] [place] | | | | | | [address] | | | | | | | | +--------+---------+ + + + | 11/24/ | Office | Cardiology | [place], | | | 2019 | Visit | | SINDHU Erickson [address] | | | | | | [place], | | | | | | [place] [address] | | | | | | [phone] | | | | | | | | +--------+---------+ + + + | 03/01/ | Office | Pulmonology | Mukul Clark MD | | | 2020 | Visit | | [address] | | | | | | [place] | | | | | | [address] | | | | | | | [...] + | [address] | [address] | [place] | [phone] | | [facility] | | [address] | | | - LABORATORY | | | | + + + + + | [address] | [address] | [place], [place] | | | [facility] | | [id number] [place] [address] | | | - LABORATORY | | [...] ST. | [address] | [place] | [phone] | | [facility] | | [address] | | | - LABORATORY | | | | + + + + + | [address] | [address] | [place], [place] | | | [facility] | | [address], [facility] | | | - LABORATORY | | | | + + + + + documented in this encounter Visit Diagnoses + + | Diagnosis | + + | COPD exacerbation (HCC) Obstructive chronic bronchitis with exacerbation | + + documented in this encounter"
--- OUTSIDE RECORDS SUMMARY | ~2019-09-27 | XMS | Encounter Summary ---
Demographics + + + | Address | [address] | | | [place] [address] | + + + | Home Phone [...] Team Providers + +------+ + | Care Uncrater Name | Role | Phone | + [...] + + | 10/16/ | Office | [facility] | Perley, | Tachycardia (Primary | | 2017 | Visit | CARDIOLOGY [address] | SINDHU Erickson [address] | Dx); Paroxysmal | | | | [place], | [place], | atrial tachycardia | | | | [place] [address] | [place] [address] | (HCC) | | | | [phone] | [phone] | | | | | | | [...] times daily. She takes this da [facility] Respiratory Therapy Supplies [facility] Please provide patient with necessary CPAP supplies ( she did not specify, okay to send order as appropriate) Diagnosis Code(s)327.23 . Length of Need 99 months. Please send order to [facility]. 1 each 0 Respiratory Therapy Supplies [facility] Change CPAP back to 11-14 cm H2O. All necessary suppl ies. No oxygen bleed in. Diagnosis Code(s)327.23. Length of Need: Lifetime. Please send orde r to [facility]. This is [...] longer present Confirmed by RUSSELL PAUL, RAFA ([id number]) on 08/06/2015 9:42:29 AM LAB RESULTS reviewed during visit today primarily from [facility]: LIPID Lab Results Component Value [...] was seen at the ED of [facility] 3 weeks ago and again [...] is in a class II of [place] [employer] functional class. There is no [...] v entricular function done at the [facility]. [...] this chart may have been created with [employer] voice recognition software. Occasi onal wrong-word or [...] | | | | | | [place] [address] | | | | | | [phone] | | | | | | | | +--------+---------+ + + + | 03/01/ | Office | Pulmonology | Mukul Clark MD | | | 2020 | Visit | | [address] | | | | | | [place] | | | | | | [address] | | | | | | | [...] Juan | | | DO CAMILLE Cherry OVERLOCK SEWING MACHINE OPERATOR: Clay Mcdonough MD | | | 48-HOUR [...] | | Signed by: Clay Mcdonough MD [facility] 10/18/2016, | | | 10:51 | [...] CLAY | | | | | | ([id number]) on 10/16/2016 | | | | | [...]
--- OUTSIDE RECORDS SUMMARY | ~2019-09-27 | XMS | Encounter Summary ---
Demographics + + + | Address | [address] | | | [place] [address] | + + + | Home Phone [...] Providers + +------+ + | Care Marine Railway Operator Name | Role | Phone | + +------+ + PCP | Unavailable | + +------+ + Encounter Details +--------+ + + + + | Date | Type | Department | Care Team | Description | +--------+ + + + + | 04/21/ | Hospital | [facility] | Nestor Martinez, | | | 2010 | Encounter | MED CTR EMERGENCY | [address] | | | | | CENTER [address] | [place], [place] | | | | | [place] | [address] | | | | | [address] | | | | | | [phone] | | | +--------+ + + + [...] | | | | | | [place] [address] | | | | | | [phone] | | | | | | | [...]
--- OUTSIDE RECORDS SUMMARY | ~2019-09-27 | XMS | Encounter Summary ---
Demographics + + + | Address | [address] | | | [place] [address] | + + + | Home Phone [...] Team Providers + +------+ + | Care Facilities Maintenance Engineer Name | Role | Phone | [...] [address] | | | | | [place], | [place] | | | | | [place] [address] | [address] | | | | | [phone] | | | +--------+--------+ + + + [...] [place] | | | | | | [address] | | | | | | | | +--------+---------+ + + + | 11/24/ | Office | Cardiology | [place] | | | 2019 | Visit | | SINDHU Erickson [address] | | | | | | [place] | | | | | | [place] [address] | | | | | | [phone] | | | | | | | [...]
--- OUTSIDE RECORDS SUMMARY | ~2019-09-27 | XMS | Encounter Summary ---
Demographics + + + | Address | [address] | | | [place] [address] | + + + | Home Phone [...] + + | 10/05/ | Telephone | [facility] [place] | Andriy Weber | Appointment (Needing | | 2015 | | [address] | MD [address] | to schedule DMSO | | | | [place] | [place] | treatments) | | | | [address] | [place] [address] | | | | | [phone] | [phone] | | | | | | | [...] [place] | | | | | | [address] | | | | | | | | +--------+---------+ + + + | 11/24/ | Office | Cardiology | [place], | | | 2019 | Visit | | SINDHU Erickson [address] | | | | | | [place], | | | | | | [place] [address] | | | | | | [phone] | | | | | | | | +--------+---------+ + + + | 03/01/ | Office | Pulmonology | Mukul Clark MD | | | 2020 | Visit | | [address] | | | | | | [place] | | | | | | [address] | | | | | | | | +--------+---------+ + + + documented as of this encounter Visit Diagnoses Not on filedocumented in this encounter"
--- OUTSIDE RECORDS SUMMARY | ~2019-09-27 | XMS | Encounter Summary ---
Demographics + + + | Address | [address] | | | [place] [address] | + + + | Home Phone [...] Providers + +------+ + | Care Yard Clerk Name | Role | Phone | [...] [place] | | | | | [address] | [place] [address] | | | | | [phone] | [phone] | | | | | | | [...] morning. Almost went to ER. Please advise. [phone] signed by Cori Humphries at 05/27/2017 9:40 [...] [place] | | | | | | [address] | | | | | | | | +--------+---------+ + + + | 11/24/ | Office | Cardiology | [place], | | | 2019 | Visit | | SINDHU Erickson [address] | | | | | | [place], | | | | | | [place] [address] | | | | | | [phone] | | | | | | | | +--------+---------+ + + + | 03/01/ | Office | Pulmonology | Mukul Clark MD | | | 2020 | Visit | | [address] | | | | | | [place] | | | | | | [address] | | | | | | | | +--------+---------+ + + + documented as of this encounter Visit Diagnoses Not on filedocumented in this encounter"
--- OUTSIDE RECORDS SUMMARY | ~2019-09-27 | XMS | Encounter Summary ---
Demographics + + + | Address | [address] | | | [place] [address] | + + + | Home Phone [...] Team Providers + +------+ + | Care Patcher Wood Welder Name | Role | Phone | [...] + + | 04/18/ | Office | [facility] | Kevin Sandoval, | COPD (chronic | | 2015 | Visit | PULMONARY [address] | MD [address] | obstructive | | | | [place], | [place], [place] | pulmonary disease) | | | | [place] [address] | [address] | ([facility]) (Primary Dx); | | | | [phone] | | GARRY (obstructive | | | [...] if you have any of these conditions: [place]'s syndrome diabetes glaucoma heart disease high blood [...] avoid any side effects. Talk to your clinical education assistant regarding the use of this medicine in [...] lk to your doctor or health career development specialist. You may need to miss a dose [...] medicine? Visit your doctor or health career development specialist for regular checks on your progress. If [...] surgery, tell your doctor or health career development specialist that you hav e taken this medicine within the last twelve months. Ask your doctor or health career development specialist about your diet. You may need to lower the amou nt of salt you eat. This medicine may affect blood sugar levels. If you have diabetes, check with your doctor o r health career development specialist before you change your diet or the dose of your diabetic medicine . What side effects may I notice from receiving this medicine? Side effects that you should report to your doctor or health career development specialist as soon as p ossible: allergic [...] (report to your doctor or health career development specialist if they continue or are bothersome): confusion, excitement, restlessness headache nausea, vomiting skin problems, acne, thin and shiny skin trouble sleeping weight gain This list may not describe all possible side effects. Call your doctor for medical advice a bout side effects. You may report side effects to FDA at 6-468-XNQ-7851. Where should I keep my medicine? Keep [...] [facility]) 10/28/2012 Overview: Managed by [facility] along with hypothyroidism Osteoarthritis Tachycardia Asthma [...] 30 tablet, Rfl: 3, Respiratory Therapy Supplies [facility], Please provide patient with necessary CPAP supplies (she did not specify, okay to send order as appropriate) Diagnosis Code(s)327.23 . Length of Nee d 99 months. Please send order to [facility]., Disp: 1 each, Rfl: 0, Respiratory Therapy Supplies MISC, Change CPAP back to 11-14 cm H2O. All necessary supplies . No oxygen bleed in. Diagnosis Code(s)327.23. Length of Need: Lifetime. [facility] This is not a new order, just [...] at a pressure of 9 cm H2O. [place] lent compliance noted. 3. Hypoxemia patient wears [...] [place] | | | | | | [address] | | | | | | | | +--------+---------+ + + + | 11/24/ | Office | Cardiology | [place], | | | 2019 | Visit | | SINDHU Erickson [address] | | | | | | [place] | | | | | | [place] [address] | | | | | | [phone] | | | | | | | | +--------+---------+ + + + | 03/01/ | Office | Pulmonology | Mukul Clark MD | | | 2020 | Visit | | [address] | | | | | | [place] [facility] [place] | | | | | | [address] | | | | | | | [...]
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
--- OUTSIDE RECORDS SUMMARY | ~2019-09-27 | XMS | Encounter Summary ---
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 She has worked with a technician trainee to correct her leaks. He has given [...] week, sooner prn. Thirty minutes were spent [id number]-[id number], with the majority of time spent in counseling. Maxim Delgado PA-C cc: Juan Cherry DO Hailee Coughlin - 2012 10:16 AM PST 03/06/12 [address] Depression Inventory-II Depression Score 43 Insomnia Severity Index Insomnia Severity Index 22 [place] Sleepiness Scale Sitting and reading 3 Watching [...] [place] | | | | | | [id number] | | | | | | | | +--------+---------+ + + + | 11/24/ | Office | Cardiology | [place], | | | 2019 | Visit | | SINDHU Erickson [address] | | | | | | [place] | | | | | | [place] [address] | | | | | | [phone] | | | | | | | | +--------+---------+ + + + | 03/01/ | Office | Pulmonology | Mukul Clark MD | | | 2020 | Visit | | [address] | | | | | | [place] | | | | | | [address] | | | | | | | | +--------+---------+ + + + documented as of this encounter Visit Diagnoses + + | Diagnosis | + + | GARRY on CPAP - Primary Obstructive sleep apnea (adult) (pediatric) | + + | Organic insomnia, unspecified | + + documented in this encounter"
--- OUTSIDE RECORDS SUMMARY | ~2019-09-27 | XMS | Encounter Summary ---
Demographics + + + | Address | [address] | | | [place] [address] | + + + | Home Phone [...] Providers + +------+ + | Care Laboratory Administrative Director Name | Role | Phone | + +------+ + | Juan Cherry DO | PCP | | + +------+ + Encounter Details +--------+ + + + + | Date | Type | Department | Care Team | Description | +--------+ + + + + | 08/20/ | Abstract | [facility] | Jared Mcdonough, | | | 2013 | | CARDIOLOGY [address] | MD [address] [place] | | | | | [place], | [place], | | | | | [place] [address] | [place] [address] | | | | | [phone] | [phone] | | | | | | | [...] | | | | | | [place] [address] | | | | | | [phone] | | | | | | | | +--------+---------+ + + + | 03/01/ | Office | Pulmonology | Mukul Clark MD | | | 2020 | Visit | | [address] | | | | | | [place] | | | | | | [address] | | | | | | | [...] | [facility] | [address] | [place] | [phone] | | [facility] | | [address] | | | - LABORATORY | | | | + + + + + | [facility] | [address] | [place], [place] | | | [facility] | | [address] | | | - LABORATORY [...] ST. | [address] | [place] | | | [facility] | | [address] | | | - LABORATORY [...] | | | LAB | | | Thai, | | | | | | External [...]
--- OUTSIDE RECORDS SUMMARY | ~2019-09-27 | XMS | Encounter Summary ---
Demographics + + + | Address | [address] | | | [place] [address] | + + + | Home Phone [...] Team Providers + +------+ + | Care Compliance Nurse Name | Role | Phone | [...] + + | 09/09/ | Emergency | [facility] | Guru Cárdenas, | Epigastric pain | | 2017 | | MED CTR EMERGENCY | MD [address] | (Primary Dx) | | | | CENTER [address] | [facility] [place] | | | | | [place] | [place] [address] | | | | | [address] | [phone] | | | | | [phone] | | | +--------+ + + + [...] be sent through Care Everywhere.GASTRITIS (ADUL T) (ROMANIAN)documented in this encounter Medications at Time of [...] | 0 | 10/13/19 | | | Mpiwszzedk-GEUH-Swzh | mouth as needed. | | | 16 | 7 | | -Cod [id number] MG | | | | | | [...] might be different f rom the original. [facility] Rosario Malik Emergency Department Encounter Note [address] [place] [address] PCP:Yong Cherry DO [phone] CHIEF COMPLAINT Chief [...] She went to urgent care at the [facility] 5 days ago and had some [...] [facility]) 10/28/2012 Overview: Managed by [facility] along with hypothyroidism Bilateral renal cysts Complex sleep apnea syndrome AHI 47.1, CPAP @ 8 cmH20, CPAP titaration study with preferred pressure of 9 cmH2O on 2013 COPD (chronic obstructive pulmonary disease) ([facility]) 2011 post BD FEV1 2.34, [...] Procedure Laterality Date COLONOSCOPY 03/2010 COLONOSCOPY 1996 [facility] HAMMER TOE SURGERY right sided HERNIA REPAIR 11/29/2015 [facility] [place] HIATAL HERNIA REPAIR Hiatal hernia HYSTERECTOMY KNEE SURGERY right OTHER SURGICAL HISTORY 02/28/2014 [facility] with Radial approach; Laterality: Left; Surgeon: Jared Mcdonough MD; Location: [facility] CARDIO VASCULAR LAB MILES AND BSO Ovarian cysts, not cancer TONSILLECTOMY Age 6 TURBT N/A 11/22/2015 Procedure: Cystoscopy, Hydrodistention & Bladder Biopsy; Surgeon: Andriy Weber MD ; Location: [facility] MAIN OR WRIST SURGERY right [...] hour s as needed.Disp-360 mL, R-5, Normal Jninyyzlyn-RIMC-Vgtn-Cod [id number] MG CAPS Take 1 capsule by mouth [...] dailyH istorical Med !! Respiratory Therapy Supplies [facility] Please provide patient with necessary CPAP supplies (s he did not specify, okay to send order as appropriate) Diagnosis Code(s)327.23 . Length of N eed 99 months. Please send order to [facility].Disp-1 each, R-0, Print !! Respiratory Therapy Supplies [facility] Change CPAP back to 11-14 cm H2O. All necessary suppli es. No oxygen bleed in. Diagnosis Code(s)327.23. Length of Need: Lifetime. Please send order to [facility]. 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[employer] Social History Main Topics Smoking [...] - Adult Medicine Contact information: [address] [facility] [address] Discharge Medication List as of 09/09/2016 18:12 START taking these medications Details pantoprazole (PROTONIX) 40 mg tablet Take 1 tablet by mouth every morning (before breakfast ).Disp-30 tablet, R-0, Print raNITIdine (ZANTAC) 150 mg tablet Take 1 tablet by mouth 2 times daily for 14 days.Disp-28 tablet, R-0, Print Guru Cárdenas MD 09/09/16 8309 documented in this encounter Miscellaneous Notes ED Triage Notes - Milagros Caro RN - 09/09/2016 2:15 PM PDTPt c/o [...] | Visit | | [address] [facility] | | | | | | [place] | | | | | | [address] | | | | | | | | +--------+---------+ + + + | 11/24/ | Office | Cardiology | [place], | | | 2019 | Visit | | SINDHU Erickson [address] | | | | | | [place], | | | | | | [place] [address] | | | | | | [phone] | | | | | | | | +--------+---------+ + + + | 03/01/ | Office | Pulmonology | Mukul Clark MD | | | 2020 | Visit | | [address] | | | | | | [place] | | | | | | [address] | | | | | | | [...] W?MRN: | | | | | | [id number] | | | [id number] | | | his | | | [...] + | [facility] | [address] | [place] | [phone] | | [facility] | | [address] | | | - LABORATORY | | [...] | mL/min/1.73m2 | [facility] | | | Lithuanian | RATE,ESTIMATED | | MEDICAL | | | | mL/min/1.22o9Llcb than | | CENTER - | | [...] + | [facility] | [address] | [place] | [phone] | | [facility] | | [address] | | | - LABORATORY | | [...] + | [facility] | [address] | [place] | [phone] | | [facility] | | [address] | | | - LABORATORY | | [...] - 1.030 | [facility] | | | [place], | | | [facility] | | [...] ST. | [address] | [place] | [phone] | | [facility] | | [address] | | | - LABORATORY | | [...] [address] | [place] | [phone] | | [facility] | | [address] | | | - LABORATORY | | [...] + | [facility] | [address] | [place] | [phone] | | [facility] | | [address] | | | - LABORATORY | | [...] [address] | [place] | [phone] | | [facility] | | [address] | | | - LABORATORY | | [...] [address] | [place] | [phone] | | [facility] | | [address] | | | - LABORATORY | | [...] [address] | [place] | [phone] | | [facility] | | [address] | | | - LABORATORY | | [...]
--- OUTSIDE RECORDS SUMMARY | ~2019-09-27 | XMS | Encounter Summary ---
Demographics + + + | Address | [address] | | | [place] [address] | + + + | Home Phone [...] Team Providers + +------+ + | Care Infantryman Name | Role | Phone | + [...] | | | | [facility] | [address] | [address] | | | | | EXERCISE | [place], | [place] | | | | | | [place] [address] | [place], [place] | | | | | | Phone: | [address] | | | | | | [phone] | Phone: | | | | | | Fax: | [phone] | | | | | | [phone] | Fax: | | | | | | | [phone] | +--------+--------+ + + + + Encounter Details +--------+---------+ + + + | Date | Type | Department | Care Team | Description | +--------+---------+ + + + | 06/25/ | Office | [facility] | Jared Mcdonough, | Chronic obstructive | | 2017 | Visit | MED CTR CARDIAC | [address] | pulmonary disease, | | | | REHABILITATION [address] [place], | unspecified COPD | | | | [address] [place] | [place] [address] | type (HCC) (Primary | | | | [place] [address] | [phone] | Dx) | | | | [phone] | | | +--------+---------+ + + + [...] as of this encounter Progress Tricia Rahman, ADULT MANAGER - 06/25/2016 1:[address] [facility] CTR CARDIAC REHABILITATION [address] [place] [address] Cardiac Rehab Date: 06/25/2016 Patient Information Patient [...] [place] | | | | | | [address] | | | | | | | | +--------+---------+ + + + | 11/24/ | Office | Cardiology | [place], | | | 2019 | Visit | | SINDHU Erickson [address] | | | | | | [place], | | | | | | [place] [address] | | | | | | [phone] | | | | | | | | +--------+---------+ + + + | 03/01/ | Office | Pulmonology | Mukul Clark MD | | | 2020 | Visit | | [address] | | | | | | [place] | | | | | | [id number] | | | | | | | | +--------+---------+ + + + documented as of this encounter Visit Diagnoses + + | Diagnosis | + + | Chronic obstructive pulmonary disease, unspecified COPD type (HCC) - Primary | + + documented in this encounter"
--- OUTSIDE RECORDS SUMMARY | ~2019-09-27 | XMS | Encounter Summary ---
Demographics + + + | Address | [address] | | | [place] [address] | + + + | Home Phone [...] Providers + +------+ + | Care Cattle Broker Name | Role | Phone | [...] + | 08/28/ | Documentati | [facility] | Kathi Soto, | No Show | | 2017 | on | MED CTR SPEECH | Speech Pathologist | | | | | THERAPY [address] | | | | | | [place], | | | | | | [place] [address] | | | | | | [phone] | | | +--------+ + + + [...] Pathologist - 08/28/2016 10:23 AM [facility]CH THERAPY [address] [place] [address] Cancellation/No Show Date: 08/28/2016 Patient Information Patient [...] [place] | | | | | | [id number] | | | | | | | | +--------+---------+ + + + | 11/24/ | Office | Cardiology | [place], | | | 2019 | Visit | | SINDHU Erickson [address] | | | | | | [place], | | | | | | [place] [address] | | | | | | [phone] | | | | | | | [...]
--- OUTSIDE RECORDS SUMMARY | ~2019-09-27 | XMS | Encounter Summary ---
Demographics + + + | Address | [address] | | | [place] [address] | + + + | Home Phone [...] Team Providers + +------+ + | Care Cushion Installer Name | Role | Phone | [...] [place] | | | | | [address] | [place] [address] | | | | | [phone] | [phone] | | | | | | | [...] | | | | | | [place] [address] | | | | | | [phone] | | | | | | | [...]
--- OUTSIDE RECORDS SUMMARY | ~2019-09-27 | XMS | Encounter Summary ---
Demographics + + + | Address | [address] | | | [place] [address] | + + + | Home Phone [...] + +------+ + | Care Field Artillery Cannoneer Name | Role | Phone | + [...] + + | 10/16/ | Hospital | [facility] | [place], | Paroxysmal atrial | | 2017 | Encounter | MED CTR NUCLEAR | SINDHU Erickson [address] | tachycardia (HCC); | | | | MEDICINE [address] | [place], | Palpitations | | | | [place], | [place] [address] | | | | | [place] [address] | [phone] | | | | | [phone] | | | +--------+ + + + [...] 51 y.o. PRIMARY CARE: DO CAMILLE Guillaume BIOINFORMATICS TEAM MEMBER: Jared Mcdonough MD 48-HOUR HOLTER MONITOR REPORT [...] symptoms reported. Signed by: Jared Mcdonough MD [facility] 10/18/2016, 10:51 documented in this encounter Plan [...] [place] | | | | | | [address] | | | | | | | | +--------+---------+ + + + | 11/24/ | Office | Cardiology | [place], | | | 2019 | Visit | | SINDHU Erickson [address] | | | | | | [place] | | | | | | [place] [address] | | | | | | [phone] | | | | | | | | +--------+---------+ + + + | 03/01/ | Office | Pulmonology | Mukul Clark MD | | | 2020 | Visit | | [address] | | | | | | [place] | | | | | | [address] | | | | | | | [...] Juan | | | DO CAMILLE Cherry BIOINFORMATICS TEAM MEMBER: Jared Mcdonough MD | | | 48-HOUR [...] | Signed by: Jared Mcdonough MD [facility] 10/18/2016, | | | 10:51 [...]
--- OUTSIDE RECORDS SUMMARY | ~2019-09-27 | XMS | Encounter Summary ---
Demographics + + + | Address | [address] | | | [place] [address] | + + + | Home Phone [...] Providers + +------+ + | Care Cold Working Supervisor Name | Role | Phone [...] [address] | | | | | [place], | [place], | | | | | [place] [address] | [place] [address] | | | | | [phone] | [phone] | | | | | | | [...] | | | | | | [place] [address] | | | | | | [phone] | | | | | | | | +--------+---------+ + + + | 03/01/ | Office | Pulmonology | Mukul Clark MD | | | 2020 | Visit | | [address] | | | | | | [place] | | | | | | [address] | | | | | | | | +--------+---------+ + + + documented as of this encounter Visit Diagnoses Not on filedocumented in this encounter"
--- OUTSIDE RECORDS SUMMARY | ~2019-09-27 | XMS | Encounter Summary ---
Demographics + + + | Address | [address] | | | [place] [address] | + + + | Home Phone [...] Providers + +------+ + | Care Property Insurance Claims Examiner Name | Role | [...] | | | [place] | [place] | | | | | [address] | [place] [address] | | | | | [phone] | [phone] | | | | | | | [...] needs this so the insurance will cover. [phone]. documented in this encounter Plan of Treatment [...] [place] | | | | | | [address] | | | | | | | | +--------+---------+ + + + | 11/24/ | Office | Cardiology | [place], | | | 2019 | Visit | | SINDHU Erickson [address] | | | | | | [place], | | | | | | [place] [address] | | | | | | [phone] | | | | | | | | +--------+---------+ + + + | 03/01/ | Office | Pulmonology | Mukul Clark MD | | | 2020 | Visit | | [address] | | | | | | [place] | | | | | | [address] | | | | | | | | +--------+---------+ + + + documented as of this encounter Visit Diagnoses Not on filedocumented in this encounter"
--- OUTSIDE RECORDS SUMMARY | ~2019-09-27 | XMS | Encounter Summary ---
Demographics + + + | Address | [address] | | | [place] [address] | + + + | Home Phone [...] Providers + +------+ + | Care Cloth Grader Name | Role | Phone | [...] W | Loreta Alonso MD | ([facility]) (Primary Dx); | | | | [place], | | GARRY on CPAP; Tobacco | | | | [place] [address] | | abuse | | | | [phone] | | | +--------+---------+ + + + [...] done after today. She is moving to [place] in August. 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 Please send order to [facility]. This is not a new [...] 02/24/2011 Tdap 01/22/2008 Dates: 05/11/12-08/08/12 Machine type: [employer]: Donuts CPAP Pressure: 13 cmH2O AHI: 6.1 events/hour [...] try switching her back to auto at [id number]. Th raven are not typically central apneas, [...] for 10 days. 2.Change CPAP pressure to [id number]. 3.Work on smoking cessation. 4.Bring download to next visit. She was advised to call if new pulmonary symptoms were to develop. Return to clinic in 4 weeks, or sooner with concerns. CC: Juan Cherry Portions of this report were transcribed using voice recognition software. Every effort wa s made to ensure accuracy; however, inadvertent computerized auto machinist errors may be pre sent. documented in [...] | | | | | | [place] [address] | | | | | | [phone] | | | | | | | | +--------+---------+ + + + | 03/01/ | Office | Pulmonology | Mukul Clark MD | | | 2020 | Visit | | [address] | | | | | | [place] | | | | | | [address] | | | | | | | [...]
--- OUTSIDE RECORDS SUMMARY | ~2019-09-27 | XMS | Encounter Summary ---
Demographics + + + | Address | [address] | | | [place] [address] | + + + | Home Phone [...] Team Providers + +------+ + | Care Urban And Regional Planner Name | Role | Phone | [...] + + | 07/29/ | Office | [facility] | Andriy Amaya | Kendra | | 2018 | Visit | [address] | MD Robert [address] | cystitis (chronic) | | | | [place], [place] | [address] | without hematuria | | | | [address] | [place] [address] | | | | | [phone] | [phone] | | | | | | | [...] a past medical history of Adrenal insufficiency (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) (10/28/2012); Bilateral renal cysts; Complex sleep apnea syndrome; COPD (chronic obstructive pulmonary disease) ([facility]) (201 2); Depression; Diverticulitis; Diverticulosis; Emphysema; [...] da rigoberto Respiratory Therapy Supplies [facility] Please provide patient with necessary CPAP supplies ( she did not specify, okay to send order as appropriate) Diagnosis Code(s)327.23 . Length of Need 99 months. Please send order to [facility]. 1 each 0 Respiratory Therapy Supplies [facility] [...] source of her bleeding recently. She will picking machine operator helper Keflex for prophylaxis today. DIAGNOSTIC DATA: [...] This document was generated in part using [employer] voice recognition software. Although ever y effort is made to edit the content, lot associate errors may occur. Occasional wrong word or [...] | | | | | | [place] [address] | | | | | | [phone] | | | | | | | | +--------+---------+ + + + | 03/01/ | Office | Pulmonology | Mukul Clark MD | | | 2020 | Visit | | [address] | | | | | | [place] | | | | | | [address] | | | | | | | [...]
--- OUTSIDE RECORDS SUMMARY | ~2019-09-27 | XMS | Encounter Summary ---
Demographics + + + | Address | [address] | | | [place] [address] | + + + | Home Phone [...] Team Providers + +------+ + | Care Neurology Tech Name | Role | Phone | [...] | | | | [facility] | [address] | [address] | | | | | EXERCISE | [place], | [place] | | | | | | [place] [address] | [place], [place] | | | | | | Phone: | [address] | | | | | | [phone] | Phone: | | | | | | Fax: | [phone] | | | | | | [phone] | Fax: | | | | | | | [phone] | +--------+--------+ + + + + Encounter Details +--------+---------+ + + + | Date | Type | Department | Care Team | Description | +--------+---------+ + + + | 07/30/ | Office | [facility] | Jared Mcdonough, | Chronic obstructive | | 2017 | Visit | [facility] CARD[facility]AC | [address] | pulmonary disease, | | | | REHABILITATION [address] [place], | unspecified COPD | | | | [address] [place] | [place] [address] | type (HCC) (Primary | | | | [place] [address] | [phone] | Dx) | | | | [phone] | | | +--------+---------+ + + + [...] of this encounter Progress Nima Plunkett-Tricia Crawley, MEDICARE SALES REPRESENTATIVE - 07/30/2016 10:15 AM PDTPatient tolerated exercise [...] [place] | | | | | | [id number] | | | | | | | | +--------+---------+ + + + | 11/24/ | Office | Cardiology | [place], | | | 2019 | Visit | | SINDHU Erickson [address] | | | | | | [place] | | | | | | [place] [address] | | | | | | [phone] | | | | | | | | +--------+---------+ + + + | 03/01/ | Office | Pulmonology | Mukul Clark MD | | | 2020 | Visit | | [address] | | | | | | [place] | | | | | | [address] | | | | | | | | +--------+---------+ + + + documented as of this encounter Visit Diagnoses + + | Diagnosis | + + | Chronic obstructive pulmonary disease, unspecified COPD type (HCC) - Primary | + + documented in this encounter"
--- OUTSIDE RECORDS SUMMARY | ~2019-09-27 | XMS | Encounter Summary ---
Demographics + + + | Address | [address] | | | [place] [address] | + + + | Home Phone [...] Providers + +------+ + | Care Scientific Artist Name | Role | Phone | [...] | Concussion | Aaron Kim MD | Manager Small Business [address] | | | Required | | with brief | [address] | [place] | | | | | loss of | [address] | [place], [place] | | | | | consciousnes | [place], | [address] | | | | | s Word | [place] [address] | Phone: | | | | | finding | Phone: | [phone] | | | | | difficulty | [phone] | Fax: | | | | | S06.0X9A | Fax: | [phone] | | | | | (ICD-10-CM) | [phone] | | | | | | - [...] + + | 08/14/ | Hospital | [facility] | Aaron Rodriguez, | Concussion with | | 2017 | Encounter | MED CTR SPEECH | MD [address] | brief (less than one | | | | THERAPY [address] | [place], [place] | hour) loss of | | | | [place], | [address] | consciousness | | | | [place] [address] | | (Primary Dx); | | | | [phone] | Kathi Soto, | Impaired memory; | [...] | 0 | 10/13/19 | | | Liqmrogpud-CVWM-Lagv | mouth as needed. | | | 16 | 7 | | -Cod 25-306-85-30 MG | | | | | | [...] Speech Pathologist - 08/15/2016 8:51 AM PDT [facility] SPEECH THERAPY [address] [place] [address] Speech Therapy Progress Assessment Date: 08/14/2016 Patient Information Patient Name: Rosario Malik Date of : 1965 Age: 51 y.o. History Encounter Diagnoses Code Name Primary? S06.0X9A Concussion with brief (less than one hour) loss of consciousness Yes R41.3 Impaired memory R47.89 Word finding difficulty Date of Onset: 03/15/2016 Referring Provider: Aaron Rodriguez MD Rehab Precautions Flowsheet Row Office Visit from 05/01/2016 in [facility] THERAPY PT OP Rehab Precautions Precautions None Rehab Learning Style Flowsheet Row [facility] ZINC PLATE CUTTER OP EVAL from 05/16/2016 in [facility] SPEECH THERAPY O ffice Visit from 05/01/2016 in [facility] THER[facility] PT OP Learning Style Patient's Optimum [...] Patient Caregiver's Ability to Manage Condition: 2 ZINC PLATE CUTTER G-Codes Functional Assessment Tool Used: NOMS Functional [...] From: 08/16/2016 Certification To: 11/16/2016 Treatment Plan/Interventions 09376 - Cognitive [id number] - Cognitive [id number] - Speech/Hearing Treatment Patient and/or family has [...] [place] | | | | | | [id number] | | | | | | | | +--------+---------+ + + + | 11/24/ | Office | Cardiology | [place], | | | 2019 | Visit | | SINDHU Erickson [address] | | | | | | [place] | | | | | | [place] [address] | | | | | | [phone] | | | | | | | | +--------+---------+ + + + | 03/01/ | Office | Pulmonology | Mukul Clark MD | | | 2020 | Visit | | [address] | | | | | | [place] | | | | | | [address] | | | | | | | | +--------+---------+ + + + + + +--------+ + + | Name | Type | Priori | Associated Diagnoses | Order Schedule | | | | ty | | | + + +--------+ + + | * [facility] Speech Therapy | Outpatient | Routin [...]
--- OUTSIDE RECORDS SUMMARY | ~2019-09-27 | XMS | Encounter Summary ---
Demographics + + + | Address | [address] | | | [place] [address] | + + + | Home Phone [...] Providers + +------+ + | Care Molder Machine Tender Name | Role | Phone [...] [place] | | | | | [address] | [place] [address] | | | | | [phone] | [phone] | | | | | | | [...] Telephone Encounter - Loraine Hawkins RN - 04/29/2017 8:34 AM PSTReceived e-refill req uest for oxybutynin. Discussed with Dr Weber then refused refill with note "needs appointme nt". Last visit here was 11/2015. If she'd like Dr Weber to refill this medication, she nee noelle to schedule a follow up visit with him or she may ask her PCP Dr Cherry to refill it. documented in this encounter Plan of Treatment [...] [place] | | | | | | [address] | | | | | | | | +--------+---------+ + + + | 11/24/ | Office | Cardiology | [place], | | | 2019 | Visit | | SINDHU Erickson [address] | | | | | | [place], | | | | | | [place] [address] | | | | | | [phone] | | | | | | | | +--------+---------+ + + + | 03/01/ | Office | Pulmonology | Mukul Clark MD | | | 2020 | Visit | | [address] | | | | | | [place] | | | | | | [address] | | | | | | | | +--------+---------+ + + + documented as of this encounter Visit Diagnoses Not on filedocumented in this encounter
--- OUTSIDE RECORDS SUMMARY | ~2019-09-27 | XMS | Encounter Summary ---
Demographics + + + | Address | [address] | | | [place] [address] | + + + | Home Phone [...] Team Providers + +------+ + | Care Shaper Hand Name | Role | Phone | [...] [place] | | | | | [address] | [place] [address] | | | | | [phone] | [phone] | | | | | | | [...] | | | | | | [place] [address] | | | | | | [phone] | | | | | | | [...]
--- OUTSIDE RECORDS SUMMARY | ~2019-09-27 | XMS | Encounter Summary ---
Demographics + + + | Address | [address] | | | [place] [address] | + + + | Home Phone [...] Providers + +------+ + | Care Internet Manager Name | Role | Phone | + +------+ + | Juan Cherry DO | PCP | | + +------+ + Encounter Details +--------+ + + + + | Date | Type | Department | Care Team | Description | +--------+ + + + + | 09/09/ | Hospital | [facility] IP | Conversion | Pain | | 2015 | Encounter | CONVERSION [address] | Transaction, | | | | | [address] | Provider Unknown | | | | | [place], [place] | [phone] | | | | | [address] | | | | | | [phone] | | | +--------+ + + + [...] [place] | | | | | | [address] | | | | | | | | +--------+---------+ + + + | 11/24/ | Office | Cardiology | [place], | | | 2019 | Visit | | SINDHU Erickson [address] | | | | | | [place] | | | | | | [place] [address] | | | | | | [phone] | | | | | | | | +--------+---------+ + + + | 03/01/ | Office | Pulmonology | Mukul Clark MD | | | 2020 | Visit | | [address] | | | | | | [place] | | | | | | [address] | | | | | | | [...]
--- OUTSIDE RECORDS SUMMARY | ~2019-09-27 | XMS | Encounter Summary ---
Demographics + + + | Address | [address] | | | [place] [address] | + + + | Home Phone [...] Providers + +------+ + | Care Burnisher And Bumper Name | Role | Phone | [...] [place] | | | | | [address] | [place] [address] | | | | | [phone] | [phone] | | | | | | | [...] | | | | | | [place] [address] | | | | | | [phone] | | | | | | | [...]
--- OUTSIDE RECORDS SUMMARY | ~2019-09-27 | XMS | Encounter Summary ---
Demographics + + + | Address | [address] | | | [place] [address] | + + + | Home Phone [...] Providers + +------+ + | Care Home Restoration Service Supervisor Name | Role | Phone [...] + + | 09/05/ | Telephone | [facility] | Kevin Sandoval, | Medication Prior | | 2014 | | PULMONARY [address] | MD [address] | Authorization | | | | [place], | [place] | | | | | [place] [address] | [address] | | | | | [phone] | | | +--------+ + + + [...] this encounter Miscellaneous Notes Telephone Encounter - Lroaine Hawkins RN - 09/05/2014 6:04 PM PDTCalled Michelle and was told the prescription went through her Part B just fine. Confirmed the diagnosis of COPD 496 with pharmacy. (Form shredded from [facility], not needed). elephone Encounter - Loraine Hawkins RN - 0 09/05/2014 1:31 PM PDTReceived fax from [facility] with note "this would normally be covered under part B but patient is not part B eligible. Part D requires prior auth in this scenario. Please see attached sheet" (pharmacy rejection with number to call for PA: ). I called that number and spoke with Brendon Clinical Triage at [facility] and she is f axing form for us to complete but advised I call patient and see if she has part B. Called Ginny sapp and she said nothing has changed with her insurance and at [facility] she'd pay at $ 12 co pay and get her nebulized medication. She will just call [facility] and have them lo sfer the prescription back to them and she'll get it filled there. Keith, pharmacist at [facility] said they called Part B and were told she doesn't have it, that patient may need to eloy l Medicare to verify it with them. Rosario notified. She said she will first start with [facility]. Advised her to let us know if [...] | | | | | | [place] [address] | | | | | | [phone] | | | | | | | | +--------+---------+ + + + | 03/01/ | Office | Pulmonology | Mukul Clark MD | | | 2020 | Visit | | [address] | | | | | | [place] | | | | | | [address] | | | | | | | | +--------+---------+ + + + documented as of this encounter Visit Diagnoses Not on filedocumented in this encounter
--- OUTSIDE RECORDS SUMMARY | ~2019-09-27 | XMS | Encounter Summary ---
Demographics + + + | Address | [address] | | | [place] [address] | + + + | Home Phone [...] Team Providers + +------+ + | Care Nail Kegger Name | Role | Phone | + [...] Office | [facility] | Ashlee Allison, | Palpitations | | 2018 | Visit | CARDIOLOGY [address] | BANKRUPTCY PROCESSOR [address] | (Primary Dx); | | | | [place], | [facility] [place] | Paroxysmal atrial | | | | [place] [address] | [address] | tachycardia (HCC); | | | | [phone] | | Hypotension due to | | [...] was again seen in emergency department at [facility] on 08/30/17 for tachycardia, ECG showing sinus tachycardia with rate of 110 beats per minute, no acute f indings, her potassium was found to be low at 3.1, and blood pressure was high 144/111 mmHg, she was given one replacement dose of potassium, and had 48 hour Holter placed. She was aga in seen in emergency department at [facility] on 09/13/17 for tachyca rdia, with [...] takes this da rigoberto [facility] Please provide patient with necessary CPAP supplies ( she did not specify, okay to send order as appropriate) Diagnosis Code(s)327.23 . Length of Need 99 months. Please send order to [facility]. 1 each 0 Respiratory Therapy Supplies [facility] Change CPAP back to 11-14 cm H2O. [...] adversely affected Probable Sinus tachycardia with short [place] though P waves are difficult to identify due to p oor quality of tracing PAC's Possible Inferior infarct , age undetermined Nonspecific ST and T wave abnormality :cannot exclude ischemia Abnormal ECG When compared with ECG of 30-AUG-2017 11:40, premature supraventricular complexes are no longer present [place] interval has decreased Possible Inferior infarct is now present Confirmed by RAFA WELLS MD ([id number]) on 09/14/2017 9:47:53 AM LAB RESULTS reviewed during visit today primarily from [facility]: LIPID Lab Results Component Value Date [...] BNP 22 08/14/2017 I reviewed records from [facility] for emergency department visit o n 08/14/17, 08/30/17, and 09/13/17 which is summarized in the HPI. IMAGING- I reviewed reports from [facility]: Xr Chest Ap Portable Result Date: [...] this chart may have been created with [employer] voice recognition software. Occasi onal wrong-word or [...] | | | | | | [place] [address] | | | | | | [phone] | | | | | | | | +--------+---------+ + + + | 03/01/ | Office | Pulmonology | Mukul Clark MD | | | 2020 | Visit | | [address] | | | | | | [place] | | | | | | [address] | | | | | | | [...] + | [facility] | [address] | [place] | [phone] | | [facility] | | [address] | | | - LABORATORY | | [...] | mL/min/1.73m2 | BERNA | | | [place]an | RATE,ESTIMATED | | MEDICAL | | | | mL/min/1.66x8Wwwa than | | CENTER - | | [...] [address] | [place] | [phone] | | [facility] | | [address] | | | - LABORATORY | | [...]
--- OUTSIDE RECORDS SUMMARY | ~2019-09-27 | XMS | Encounter Summary ---
Demographics + + + | Address | [address] | | | [place] [address] | + + + | Home Phone [...] Providers + +------+ + | Care Lens Marker Name | Role | Phone | [...] + + | 11/04/ | Office | [facility] | Daryl Hargrove | Axillary abscess | | 2015 | Visit | CARE [address] | Ernie Sanabria MD | (Primary Dx) | | | | [place], [place] | [address] | | | | | [address] | [place] [facility] [place] | | | | | [phone] | [address] | | | | | [...] LPN at 11/04/2014 9 :44 AM [place] Foramn LPN - 11/04/2014 9:42 AM PDTConsent for [...] [place] | | | | | | [address] | | | | | | | | +--------+---------+ + + + | 11/24/ | Office | Cardiology | [place], | | | 2019 | Visit | | SINDHU Erickson [address] | | | | | | [place], | | | | | | [place] [address] | | | | | | [phone] | | | | | | | | +--------+---------+ + + + | 03/01/ | Office | Pulmonology | Mukul Clark MD | | | 2020 | Visit | | [address] | | | | | | [place] | | | | | | [id number] | | | | | | | [...] [address] | [place] | [phone] | | [facility] | | [address] | | | - LABORATORY | | | | + + + + + documented in this encounter Visit Diagnoses + + | Diagnosis | + + | Axillary abscess - Primary Cellulitis and abscess of upper arm and forearm | + + documented in this encounter
--- OUTSIDE RECORDS SUMMARY | ~2019-09-27 | XMS | Encounter Summary ---
Demographics + + + | Address | [address] | | | [place] [address] | + + + | Home Phone [...] Team Providers + +------+ + | Care Wet Milling Wheel Operator Name | Role | Phone | + +------+ + | Juan Cherry DO | PCP | | + +------+ + Encounter Details +--------+---------+ + + + | Date | Type | Department | Care Team | Description | +--------+---------+ + + + | 02/28/ | Surgery | [facility] | Jared Mcdonough, | [facility] with Radial | | 2014 | | MED CTR CV INTRA OP | MD [address] | approach | | | | [address] | [place], | | | | | [place], [place] | [place] [address] | | | | | [address] | [phone] | | | | | [phone] | | | +--------+---------+ + + + [...] ASA 2 Typical airway Georgina Lorenzana AR FOUNDRY WORKER APPRENTICE - 02/22/2014 9:52 AM PST PATIENT NAME: [...] mg by mouth Daily. Respiratory Therapy Supplies [facility] Incentive spirometer. Please provide instructions in use. Dx: 848.8 MADELEINE: 3 months 1 each 99 Respiratory Therapy Supplies [facility] [...] She is in a class II-III of [employer] ation functional class. There is [...] ventricular function don e at the [facility]. LVEF 78%. C. [...] this chart may have been created with [employer] voice recognition software. Occasi onal wrong-word [...] Rosario Malik, (1965) DATE OF PROCEDURE: 02/28/2014 OPERATIONS SPECIALISTS: Jared Mcdonough MD PROCEDURES PERFORMED: Coronary Angiography [...] Notes Plan of Care - [facility] - 03/01/2014 12:00 AM PST iscellaneous - [facility] - 03/01/2014 12:00 AM PSTElec tronically signed by Rolando Pozo at 03/01/2014 1:58 PM PSTMiscellaneous - [facility] - 03/01/2014 12:00 AM PST do [...] [place] | | | | | | [id number] | | | | | | | | +--------+---------+ + + + | 11/24/ | Office | Cardiology | [place] | | | 2019 | Visit | | SINDHU Erickson [address] | | | | | | [address] [place], | | | | | | [place] [address] | | | | | | [phone] | | | | | | | | +--------+---------+ + + + | 03/01/ | Office | Pulmonology | Mukul Clark MD | | | 2020 | Visit | | [address] | | | | | | [place] | | | | | | [address] | | | | | | | [...] Rosario Malik, (1965) MEDICAL RECORD NUMBER: | [facility] | | [id number] DATE OF PROCEDURE: 02/28/2014 OPERATIONS SPECIALISTS: | - IMAGING | | Jared Mcdonough [...] Malik, (1965) OF | | PROCEDURE: 02/28/2014PRIMARY TEACHER ASSISTANT: Jared Mcdonough MD PROCEDURES | | PERFORMED:Coronary [...] ST. | [address] | [place] | [phone] | | [facility] | | [address] | | | - IMAGING | | [...] [facility] | | | [place] | RATE,ESTIMATED | | MEDICAL | | | | mL/min/1.31b6Lgrg than | | CENTER - | | [...] | [facility] | [address] | [place] | [phone] | | [facility] | | [address] | | | - LABORATORY | | | | + + + + + | [facility] | [address] | [place], [place] | | | [facility] | | [address] | | | - LABORATORY | [...]
--- OUTSIDE RECORDS SUMMARY | ~2019-09-27 | XMS | Encounter Summary ---
Demographics + + + | Address | [address] | | | [place] [address] | + + + | Home Phone [...] Team Providers + +------+ + | Care Stud Master/Mistress Name | Role | Phone | + [...] | with brief | [address] | [address] | | | | n | loss of | [address] | [place], | | | | | consciousnes | [place], | [place] [address] | | | | | s | [place] [address] | Phone: | | | | | Post-concuss | Phone: | [phone] | | | | | ion vertigo | [phone] | Fax: | | | | | [id number] | Fax: | [phone] | | | | | (ICD-10-CM) | [phone] | | | | | | - [...] + + | 05/01/ | Office | [facility] | Aaron Rodriguez, | Concussion with | | 2017 | Visit | MED CTR THERAPY PT | MD [address] | brief (less than one | | | | OP [address] | [place] | hour) loss of | | | | [place] | [id number] | consciousness | | | | [address] | | (Primary Dx); | | | | [phone] | Lakeshia Cleary, PT | Dizziness; Impaired | | | | | [address] | mobility and | | | | | [place] | activities of daily | | | | | [address] | living; Intractable | | | | [...] limited or restricted Treatment Plan/Interventions PT EvaluationPT Re-[id number] - Therapeutic Zbdwudxi58426 - Neuromuscular Reeducation9 7116 - Gait Xftywwni90681 - Therapeutic Vdgrshtpsx87621 - Manual Yecezjv81777 - Self Care/Ho me Management Electronically signed by: Lakeshia Barkley PT, 05/01/2016 12:44 Patient Name: Rosario Malik/: 1965/ Associated attestation - Aaron Rodriguez MD - 05/01/2016 12:52 PM Jose Carlos Rodriguez MD (.) Lakeshia Barkley, PT - 05/01/2016 9:53 AM PSTFormatting of this note might be different from t he original. [facility] CTR THERAPY PT OP [address] [place] [address] Physical Therapy Initial Assessment Date: 05/01/2016 Patient [...] Pt lives in a 2 level home ([facility] downstairs) no railing so is very careful. 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 Social History Main Topics [...] [facility]) 10/28/2012 Overview: Managed by [facility] along with hypothyroidism Osteoarthritis Tachycardia Asthma Emphysema Migraine Sleep apnea uses BiPAP Oxygen dependent uses 2.5 liters most of the time Past Surgical History Procedure Laterality Date Hammer toe surgery right sided Hiatal hernia repair Hiatal hernia Kirk and bso Ovarian cysts, not cancer Colonoscopy 03/2010 Colonoscopy 1995 [facility] Knee surgery right Wrist surgery right Hysterectomy Other surgical history 02/28/2014 [facility] with Radial approach; Laterality: Left; Surgeon: Jared Mcdonough MD; Location: [facility] CARDIO VASCULAR LAB Tonsillectomy Age 6 Turbt N/A 11/22/2015 Procedure: Cystoscopy, Hydrodistention & Bladder Biopsy; Surgeon: Yinka Melendez; Location: [facility] MAIN OR Hernia repair 11/29/2015 [place] Family History Problem Relation Age of Onset [...] Rehab Precautions Office Visit from 05/01/2016 in [facility] CTR THERAPY PT OP Rehab Precautions [...] Does walking down an aisle of a superCitySlickeret increase your problem?: 0-No F5 Because of [...] performing more ambitious activities, like sports, dancing, machine stonecutter such a s sweeping or putting dishes [...] Certification To: 07/24/2016 Treatment Plan/Interventions PT EvaluationPT Re-Cmucgvkbrw60443 - Therapeutic Kbqktokq44741 - Neuromuscular Reeducation9 7116 - Gait Anyjjrky28587 - Therapeutic Qcwebgafoz25199 - Manual Zvpwhyv08393 - Self Care/Ho me Management Patient and/or [...] | | | | | | [place] [address] | | | | | | [phone] | | | | | | | | +--------+---------+ + + + | 03/01/ | Office | Pulmonology | Mukul Clark MD | | | 2020 | Visit | | [address] | | | | | | [place] | | | | | | [address] | | | | | | | [...]
--- OUTSIDE RECORDS SUMMARY | ~2019-09-27 | XMS | Encounter Summary ---
Demographics + + + | Address | [address] | | | [place] [address] | + + + | Home Phone [...] | | not | [place], | [place] | | | | | elsewhere | [place] [address] | [place], [place] | | | | | classified | Phone: | [address] | | | | | Procedures | [phone] | Phone: | | | | | [place] PULMONARY | Fax: | [phone] | | | | | REHAB W | [phone] | Fax: | | | | | EXER | | [phone] | +--------+--------+ + + + + Encounter Details +--------+---------+ + + + | Date | Type | Department | Care Team | Description | +--------+---------+ + + + | 12/14/ | Office | [facility] | Sandoval, Kevin, | COPD (chronic | | 2013 | Visit | MED CTR CARDIAC | MD [address] | obstructive | | | | REHABILITATION [address] | [place] | pulmonary disease) | | | | [address] [place] | [address] | ([facility]) (Primary Dx) | | | | [place] [address] | | | | | | [phone] | Mary Nunez RN | | +--------+---------+ [...] tachycardia and is wearing a Sylvester of itravel which she will turn in sekou . [...] reps. Her PFT doesn't qualify her for [place], so we will monitor her as a [...] | | | | | | [place] [address] | | | | | | [phone] | | | | | | | | +--------+---------+ + + + | 03/01/ | Office | Pulmonology | Mukul Clark MD | | | 2020 | Visit | | [address] | | | | | | Jose R E [place] | | | | | | [id number] | | | | | | | | +--------+---------+ + + + documented as of this encounter Visit Diagnoses + + | Diagnosis | + + | COPD (chronic obstructive pulmonary disease) (HCC) - Primary Chronic airway | | obstruction, not elsewhere classified | + + documented in this encounter
--- OUTSIDE RECORDS SUMMARY | ~2019-09-27 | XMS | Encounter Summary ---
Demographics + + + | Address | [address] | | | [place] [address] | + + + | Home Phone [...] Team Providers + +------+ + | Care Renewable Energy Technician Name | Role | Phone | [...] [place] | | | | | [address] | [place] [address] | | | | | [phone] | [phone] | | | | | | | [...] this encounter Miscellaneous Notes Telephone Encounter - oLraine Hawkins RN - 04/29/2017 8:34 AM PSTReceived [...] [place] | | | | | | 2159[address] | | | | | | | | +--------+---------+ + + + | 11/24/ | Office | Cardiology | Flores, | | | 2019 | Visit | | SINDHU Erickson [address] | | | | | | [place], | | | | | | [place] [address] | | | | | | [phone] | | | | | | | | +--------+---------+ + + + | 03/01/ | Office | Pulmonology | Mukul Clark MD | | | 2020 | Visit | | [address] | | | | | | [place] | | | | | | [address] | | | | | | | | +--------+---------+ + + + documented as of this encounter Visit Diagnoses Not on filedocumented in this encounter
--- OUTSIDE RECORDS SUMMARY | ~2019-09-27 | XMS | Encounter Summary ---
Demographics + + + | Address | [address] | | | [place] [address] | + + + | Home Phone [...] Team Providers + +------+ + | Care Volcanologist Name | Role | Phone | + +------+ + PCP | Unavailable | + +------+ + Encounter Details +--------+ + + + + | Date | Type | Department | Care Team | Description | +--------+ + + + + | 04/05/ | [facility] | [facility] | | | | 2010 | Encounter | MED CTR XRAY [address] | | | | | | [place] | | | | | | [place] [address] | | | | | | [phone] | | | +--------+ + + + [...] [place] | | | | | | [place] [address] | | | | | | [phone] | | | | | | | | +--------+---------+ + + + | 03/01/ | Office | Pulmonology | Mukul Clark MD | | | 2020 | Visit | | [address] | | | | | | [place] | | | | | | [address] | | | | | | | | +--------+---------+ + + + documented as of this encounter Visit Diagnoses Not on filedocumented in this encounter"
--- OUTSIDE RECORDS SUMMARY | ~2019-09-27 | XMS | Encounter Summary ---
Demographics + + + | Address | [address] | | | [place] [address] | + + + | Home Phone [...] Team Providers + +------+ + | Care Parliamentary Archivist Name | Role | Phone | + [...] + + | 12/28/ | Office | [facility] [place] | [place], | COPD exacerbation | | 2012 | Visit | PULMONARY [address] | Loreta Alonso MD | ([facility]) (Primary Dx); | | | | [place], | | [place] (obstructive | | | | [place] [address] | | sleep apnea); | | | | [phone] | | Central sleep apnea | +--------+---------+ [...] [place] Pulmonary and Critical Care [facility] [address] [place], [address] HPI Rosario Malik is a 47 y.o. female patient of Juan Cherry here today for follow up of COPD. She notes that she moved back from [place] in November at some point. She had a difficult t francy while in [place], requiring hospitalization 2 times at [facility], once in September. She returned, and developed symptoms of an exacerbation, and called in. We referred her to urgent care, and she went to emergency room. She was hypoxemic despite nebulizers, and so wa s admitted. She was in the hospital for two nights. Before she left for [place], she was on Advair and Combivent. 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 documented in [...] [place] | | | | | | [address] | | | | | | | | +--------+---------+ + + + | 11/24/ | Office | Cardiology | [place], | | | 2019 | Visit | | SINDHU Erickson [address] | | | | | | [place], | | | | | | [place] [address] | | | | | | [phone] | | | | | | | | +--------+---------+ + + + | 03/01/ | Office | Pulmonology | Mukul Clark MD | | | 2020 | Visit | | [address] | | | | | | [place] | | | | | | [address] | | | | | | | [...]
--- OUTSIDE RECORDS SUMMARY | ~2019-09-27 | XMS | Encounter Summary ---
Demographics + + + | Address | [address] | | | [place] [address] | + + + | Home Phone [...] Providers + +------+ + | Care Senior Research Executive Name | Role | Phone | [...] | | central | [address] | [place] | | | | | sleep apnea | [address] | [place], | | | | | [place] | [place], | [place] [address] | | | | | (obstructive | [place] [address] | Phone: | | | | | sleep | Phone: | [phone] | | | | | apnea) | [phone] | Fax: | | | | | Procedures | Fax: | [phone] | | | | | [place] POLYSOM | [phone] | | | | | | 6/>YRS [...] + + | 12/30/ | Office | [facility] | Kevin Sandoval, | COPD (chronic | | 2013 | Visit | PULMONARY [address] | MD [address] | obstructive | | | | [place], | [place], [place] | pulmonary disease) | | | | [place] [address] | [address] | (HCC) (Primary Dx); | | | | [phone] | | Hypoxemia; Central | | | [...] nd it. Keep your chin up. 3. Warnock 1 puff into the spacer by pressing [...] your mouth.) 3. Keep your chin up. Warnock 1 puff by pressing down on the [...] store it in a dry p lace. 3495-8155 [facility], [address] [place] [address], [place] [address]. All rights reserve d. This information is [...] apparently in the emergency department at the [facility] a week or so ago and was [...] ([facility]) 10/28/2012 Overview: Managed by [facility] along [...] send order to [facility] Disp: 1 each, Rfl: 0 Respiratory Therapy Supplies MISC, Change CPAP back to 11-14 cm H2O. All necessary supplies . No oxygen bleed in. Diagnosis Code(s)327.23. Length of Need: Lifetime. Please send order t [facility]. This is not [...] encounter Miscellaneous Notes [facility] - 01/24/2014 12:00 AM PSTElectronically lisha d by Rolando Pozo at 02/01/2014 3:07 PM PSTMiscellaneous - ONBASE SCAN [facility] - 12/30/2013 12 :00 AM PST documented [...] [place] | | | | | | [address] | | | | | | | | +--------+---------+ + + + | 11/24/ | Office | Cardiology | [place], | | | 2019 | Visit | | SINDHU Erickson [address] | | | | | | [place], | | | | | | [place] [address] | | | | | | [phone] | | | | | | | | +--------+---------+ + + + | 03/01/ | Office | Pulmonology | Mukul Clark MD | | | 2020 | Visit | | [address] | | | | | | [place] | | | | | | [address] | | | | | | | [...]
--- OUTSIDE RECORDS SUMMARY | ~2019-09-27 | XMS | Encounter Summary ---
Demographics + + + | Address | [address] | | | [place] [address] | + + + | Home Phone [...] Team Providers + +------+ + | Care Audio/Video Technician Name | Role | Phone | + +------+ + PCP | Unavailable | + +------+ + Encounter Details +--------+ + + + + | Date | Type | Department | Care Team | Description | +--------+ + + + + | 10/17/ | Hospital | [facility] | Kevin Worthy | | | 2010 | Encounter | MED CTR MP INTRA OP | MD Ginny [address] | | | | | [address] | [place], [place] | | | | | [place], [place] | [address] | | | | | [address] | | | | | | [phone] | | | +--------+ + + + [...] puncture done 2 day s ago at [facility]. She had a headache shortly [...] Fish oil. 7. Multivitamin. 8. Synthroid. 9. [place]. 10. Neurontin. 11. Lexapro. 12. Cipro. 13. [...] Ozzy Louis MD Emergency Medicine JOB #: [id number] EXT JOB #:[id number] <Electronicall y Signed by Ozzy Louis MD> [...] | | | | | | [place] [address] | | | | | | [phone] | | | | | | | [...]
--- OUTSIDE RECORDS SUMMARY | ~2019-09-27 | XMS | Encounter Summary ---
Demographics + + + | Address | [address] | | | [place] [address] | + + + | Home Phone [...] Team Providers + +------+ + | Care Burn Out Scarfing Operator Name | Role | Phone | [...] | Concussion | Aaron Kim MD | Core Shaper Top [address] | | | Required | | with brief | [address] | [place] | | | | | loss of | [address] | [place], [place] | | | | | consciousnes | [place], | [address] | | | | | s Word | [place] [address] | Phone: | | | | | finding | Phone: | [phone] | | | | | difficulty | [phone] | Fax: | | | | | S06.0X9A | Fax: | [phone] | | | | | (ICD-10-CM) | [phone] | | | | | | - [...] + + | 05/16/ | Hospital | [facility] | Aaron Rodriguez, | Concussion with | | 2017 | Encounter | MED CTR SPEECH | MD [address] | brief (less than one | | | | THERAPY [address] | [place] | hour) loss of | | | | [place], | [address] | consciousness | | | | [place] [address] | | (Primary Dx); | | | | [phone] | Kathi Soto, | Impaired memory; | [...] | 0 | 10/13/19 | | | Obongdpzlx-FWVP-Ainn | mouth as needed. | | | 16 | 7 | | -Cod [id number] MG | | | | | | [...] Speech Pathologist - 05/16/2016 10:[address] [facility] SPEECH THERAPY [address] [place] [address] Speech Therapy Initial Assessment Date: 05/16/2016 Patient Information Patient Name: Rosario Malik Date of : 1965 Age: 51 y.o. History No problems updated. Mechanism of injury: Trauma- Concussion with brief loss of consciousness on 03/15/16. Previous level of function and limitations: Problems with memory prior to concussion excelsior springsmaxi alejo in December of 2015, forgetting names, forgetting appointments,difficulty recalling words , and during conversation difficulty staying on track. 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 Social History Main Topics Smoking status: [...] obstructive pulmonary disease) ([facility]) 2011 post BD FEV1 2.34, 85% [...] duct (pouch) (HCC) 10/28/2012 Overview: Man[facility] by [facility] along with hypothyroidism Osteoarthritis Tachycardia Asthma Emphysema Migraine Sleep apnea uses BiPAP Oxygen dependent uses 2.5 liters most of the time Past Surgical History Procedure Laterality Date Hammer toe surgery right sided Hiatal hernia repair Hiatal hernia Kirk and bso Ovarian cysts, not cancer Colonoscopy 03/2010 Colonoscopy 1995 [facility] Knee surgery right Wrist surgery right Hysterectomy Other surgical history 02/28/2014 [facility] with Radial approach; Laterality: Left; Surgeon: Jared Mcdonough MD; Location: [facility] CARDIO VASCULAR LAB Tonsillectomy Age 6 Turbt N/A 11/22/2015 Procedure: Cystoscopy, Hydrodistention & Bladder Biopsy; Surgeon: Yinka Melendez; Location: [facility] MAIN OR Hernia repair 11/29/2015 Our [...] Rehab Precautions Office Visit from 05/01/2016 in [facility] CTR THERAPY PT OP Rehab [...] the mean for immediate and delayed memory. ELECTRON GUN ASSEMBLER G-Codes Functional Assessment Tool Used: NOMS Score: [...] From: 05/16/2016 Certification To: 08/16/2016 Treatment Plan/Interventions 75633 - Cognitive Yyhmccn31075 - Cognitive Bnrjgdwt69297 - Speech/Hearing Treatment Patient and/or family has [...] PATHO, 05/20/2016 19:10 Patient Name: Rosario Rea [place]/: 1965/ domadyson ented in this encounter Plan [...] [place] | | | | | | [address] | | | | | | | | +--------+---------+ + + + | 11/24/ | Office | Cardiology | [place], | | | 2019 | Visit | | SINDHU Erickson [address] | | | | | | [place] | | | | | | [place] [address] | | | | | | [phone] | | | | | | | | +--------+---------+ + + + | 03/01/ | Office | Pulmonology | Mukul Clark MD | | | 2020 | Visit | | [address] | | | | | | [place] | | | | | | [address] | | | | | | | [...]
--- OUTSIDE RECORDS SUMMARY | ~2019-09-27 | XMS | Encounter Summary ---
Demographics + + + | Address | [address] | | | [place] [address] | + + + | Home Phone [...] + + | 04/12/ | Office | [facility] | [place], | COPD exacerbation | | 2013 | Visit | PULMONARY [address] | Loreta Alonso MD | ([facility]) (Primary Dx); | | | | [place], | | Sprain of chest | | | | [place] [address] | | wall; [place] | | | | [phone] | | (obstructive sleep | | | [...] perform them regularly on you r own. 4638-5093 Rafael Perez, [address] [place] [address]. All rights reserve d. This information is not intended as a substitute for professional medical care. Always fo llow your healthcare professional's instructions. documented in this encounter Progress Notes Loreta London MD - 04/12/2013 9:12 AM PSTFormatting of this note might be differe nt from the original. Pulmonary Follow Up Note Loreta London MD [place] Pul[facility] and Critical [facility] [address] [place], [address] HPI Rosario Malik is a 48 y.o. [...] and machine. She took it in to [facility] today for servicing. 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 3 tablet 0 Respiratory Therapy Supplies [facility] Please provide patient with necessary CPAP supplies ( she did not specify, okay to send order as appropriate) Diagnosis Code(s)327.23 . Length of Need 99 months. Please send order to [facility]. 1 each 0 Respiratory Therapy Supplies [...] has essentially been living from exacerbation to [facility] since return from [place] without clear explanation. Factors to consider: medication [...] using her CPAP as [facility] as she should per last downloads [...] made to ensure accuracy; however, inadvertent computerized travel agent errors may be pre sent. documented [...] | | | | | [place], [place] | | | | | | [address] | | | | | | | | +--------+---------+ + + + | 11/24/ | Office | Cardiology | [place], | | | 2019 | Visit | | SINDHU Erickson [address] | | | | | | [place], | | | | | | [place] [address] | | | | | | [phone] | | | | | | | | +--------+---------+ + + + | 03/01/ | Office | Pulmonology | Mukul Clark MD | | | 2020 | Visit | | [address] | | | | | | [place] | | | | | | [address] | | | | | | | | +--------+---------+ + + + + + +--------+ + + | Name | Type | Priori | Associated Diagnoses | Order Schedule | | | | ty | | | + + +--------+ + + | Ambulating oximetry, | Respiratory | Routin | COPD exacerbation | Expected: | | clinic, | Care | e | ([facility]) | 04/12/2013, Expires: | | qualification [...] + | [facility] | [address] [place] [address] | [place] | [phone] | | [facility] | | [address] | | | - LABORATORY | | | | + + + + + | [address] | [address] | [place], [place] | | | [facility] | | [address], [facility] | | | - LABORATORY [...]
--- OUTSIDE RECORDS SUMMARY | ~2019-09-27 | XMS | Encounter Summary ---
Demographics + + + | Address | [address] | | | [place] [address] | + + + | Home Phone [...] Providers + +------+ + | Care Pressure Dispatcher Name | Role | Phone | [...] | | | | CENTER [address] [place] | [facility], | | | | | [place] | [place] [address] | | | | | [address] | [phone] | | | | | [phone] | | | +--------+ + + + [...] Yecenia Gallegos MD - 08/31/2012 11:27 PM [place], [place] [id number] Patient Name: JADYN SCHMITZ Provider: Unit #: [id number] Location: : 1965 DATE: 08/30/2012 PRIMARY CARE [...] with her about early followup with her respiratory scientist or her primary care physician. Given that [...] Yecenia Gallegos MD Emergency Medicine JOB #: [id number] EXT JOB #:[id number] cc: Loreta London MD <<Signature on File>> [...] | | | | | | [place] [address] | | | | | | [phone] | | | | | | | | +--------+---------+ + + + | 03/01/ | Office | Pulmonology | Mukul Clark MD | | | 2020 | Visit | | [address] | | | | | | [place] | | | | | | [address] | | | | | | | | +--------+---------+ + + + documented as of this encounter Visit Diagnoses Not on filedocumented in this encounter
--- OUTSIDE RECORDS SUMMARY | ~2019-09-27 | XMS | Encounter Summary ---
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 Fifteen minutes were spent qaws-su-cdxe, wit h the majority of time spent [...] [place] | | | | | | [address] | | | | | | | | +--------+---------+ + + + | 11/24/ | Office | Cardiology | [place], | | | 2019 | Visit | | SINDHU Erickson [address] | | | | | | [place], | | | | | | [place] [address] | | | | | | [phone] | | | | | | | | +--------+---------+ + + + | 03/01/ | Office | Pulmonology | Mukul Clark MD | | | 2020 | Visit | | [address] | | | | | | [place] | | | | | | [id number] | | | | | | | | +--------+---------+ + + + documented as of this encounter Visit Diagnoses + + | Diagnosis | + + | Organic insomnia, unspecified - Primary | + + | [place] on CPAP Obstructive sleep apnea (adult) (pediatric) | + + documented in this encounter"
--- OUTSIDE RECORDS SUMMARY | ~2019-09-27 | XMS | Encounter Summary ---
Demographics + + + | Address | [address] | | | [place] [address] | + + + | Home Phone [...] Team Providers + +------+ + | Care Flatlock Sewing Machine Operator Name | Role | Phone | + +------+ + PCP | Unavailable | + +------+ + Encounter Details +--------+ + + + + | Date | Type | Department | Care Team | Description | +--------+ + + + + | 07/31/ | Hospital | [facility] | Abigail Ozzie | | | 2010 | Encounter | MED CTR EMERGENCY | MD Ran [address] | | | | | SELENE [address] | [address] [facility] | | | | | [place], [place] | [place] [address] | | | | | [address] | [phone] | | | | | [phone] | | | +--------+ + + + [...] worsening. She has not been running a Prized r. She has not been nauseated or [...] Ozzie Hayes MD Emergency Medicine JOB #: [id number] EXT JOB #:[id number] <Electronicall y Signed by Ozzie Hayes MD> 07/31/10 0482 documented in this encounter Plan of Treatment [...] [place] | | | | | | [address] | | | | | | | | +--------+---------+ + + + | 11/24/ | Office | Cardiology | [place], | | | 2019 | Visit | | SINDHU Erickson [address] | | | | | | [place], | | | | | | [place] [address] | | | | | | [phone] | | | | | | | | +--------+---------+ + + + | 03/01/ | Office | Pulmonology | Mukul Clark MD | | | 2020 | Visit | | [address] | | | | | | [place] | | | | | | [address] | | | | | | | [...] - 1.030 | [facility] | | | [place], | | | [facility] | | [...] + | [facility] | [address] | [place] | [phone] | | [facility] | | [address] | | | - LABORATORY | | | | + + + + + | [facility] | [address] | [place] | | | [facility] | | [address] [place] [address] | | | - LABORATORY | | [...] [address] | [place] | [phone] | | [facility] | | [address] | | | - LABORATORY | | | | + + + + + | [facility] | [address] | [place], [place] | | | [facility] | | [address], [facility] | | | - [...] + | [facility] | [address] | [place] | [phone] | | [facility] | | [address] | | | - LABORATORY | | | | + + + + + | [facility] | [address] | [place], [place] | | | [facility] | | [id number] [place] [address] | | | - LABORATORY | | [...] + | [facility] | [address] | [place], [place] | [phone] | | [facility] | | [address] | | | - LABORATORY | | | | + + + + + | [facility] | [address] | [place], [place] | | | [facility] | | [address], [facility] | | | - LABORATORY | | | | + + + + + CT Abdomen Pelvis w Contrast (07/31/2010 2:22 AM PDT) + + | Specimen | + + | | + + + + + | Narrative | Performed At | + + + | [facility] Diagnostic Imaging Department | [facility] | | [address] [facility] | [facility] | | CT ABDOMEN AND [...] Transcribed Date/Time: 07/31/2010 | | | 10:29 Counterintelligence Agent: <Electronically Signed by Lencho Reynolds | | | MD Shira> 07/31/10 1718 | | + + + + + | Procedure Note | + + | Reed, Rad Conversion - 04/02/2013 3:[address] [facility] | | Diagnostic Imaging Department [address] [facility] | | CT ABDOMEN AND PELVIS WITH [...] 08:28 | |Transcribed Date/Time: 07/31/2010 10:29 | |Counterintelligence Agent: | |<Electronically Signed by Lencho Silva MD> [...]
--- OUTSIDE RECORDS SUMMARY | ~2019-09-27 | XMS | Encounter Summary ---
Demographics + + + | Address | [address] | | | [place] [address] | + + + | Home Phone [...] Team Providers + +------+ + | Care Apartment Locator Name | Role | Phone | + [...] MED CTR LABORATORY | DO [address] [facility] | | | | | [address] [place] | [place], [place] | | | | | [place], [place] | [address] | | | | | [address] | [phone] | | | | | [phone] | | | | | | | [...] | | | | | | [place] [address] | | | | | | [phone] | | | | | | | | +--------+---------+ + + + | 03/01/ | Office | Pulmonology | Mukul Clark MD | | | 2020 | Visit | | [address] | | | | | | [place] | | | | | | [address] | | | | | | | [...] [place] | | | | | | [address] | | | | + + + [...] | Cortisol, | 8.77Comment: Reference | ug/g EXPORT MANAGER | REFERENCE | | | Urine, [...] | | | | than 32 ug/g survey research center director | | | | + + [...] | | | this test in the [facility] | | | | | | Laboratory Test | | | | | | Directory(6fusion).T | | | | | | est developed and | | | | | | characteristics | | | | | | determined by [facility] | | | | | | Laboratories.See | | | | | | Compliance Statement B: | | | | | | 6fusion/CSTesting | | | | | | Performed: [facility], [address] | | | | | | [address], [place] | | | | | | [id number] Performed: | | | | | | [facility], [address], | | | | | | [place] [address] | | | | + + + [...] [address] | [place] [address] | [phone] | + + + + + documented in this encounter Visit Diagnoses + + | Diagnosis | + + | Pituitary mass (HCC) Unspecified disorder of the pituitary gland and its hypothalamic | | control | + + documented in this encounter"
--- OUTSIDE RECORDS SUMMARY | ~2019-09-27 | XMS | Encounter Summary ---
Demographics + + + | Address | [address] | | | [place] [address] | + + + | Home Phone [...] + +------+ + | Care Nuclear Plant Operator Name | Role | Phone [...] on | MED CTR THERAPY PT | J2EE CONSULTANT [address] | | | | | OP [address] | [place], [place] | | | | | [place], [place] | [address] | | | | | [address] | [phone] | | | | | [phone] | | | +--------+ + + + [...] encounter Progress Notes Janey Low PTA - 06/02/2013 9:39 [facility] OP [address] [place] [address] Cancellation/No Show Date: 06/02/2013 Patient Information Patient [...] | | | | | | [place] [address] | | | | | | [phone] | | | | | | | [...]
--- OUTSIDE RECORDS SUMMARY | ~2019-09-27 | XMS | Encounter Summary ---
Demographics + + + | Address | [address] | | | [place] [address] | + + + | Home Phone [...] Team Providers + +------+ + | Care Shell Mold Bonder Name | Role | Phone | [...] + + | 08/14/ | Emergency | [facility] | Sonny Cesar MD | Sinus tachycardia | | 2018 | | MED CTR EMERGENCY | [address] | (Primary Dx) | | | | CENTER [address] | [place] | | | | | [place] | [address] | | | | | [address] | | | | | | [phone] | | | +--------+ + + + [...] | | | | order to [facility]. | | | | | [...] [facility]) 10/28/2012 Overview: Managed by [facility] along with hypothyroidism Bilateral [...] Procedure Laterality Date COLONOSCOPY 03/2010 COLONOSCOPY 1995 [facility] HAMMER TOE SURGERY right sided HERNIA REPAIR 11/29/2015 [place] HIATAL HERNIA REPAIR Hiatal hernia HYSTERECTOMY KNEE SURGERY right OTHER SURGICAL HISTORY 02/28/2014 [facility] with Radial approach; Laterality: Left; Surgeon: Jared Mcdonough MD; Location: [facility] CARDIO VASCULAR LAB MILES AND BSO Ovarian cysts, not cancer TONSILLECTOMY Age 6 TURBT N/A 11/22/2015 Procedure: Cystoscopy, Hydrodistention & Bladder Biopsy; Surgeon: Andriy Amaya MD ; Location: [facility] MAIN OR WRIST SURGERY right SOCIAL HISTORY Social History Social History Marital status: Single Spouse name: N/A Number of children: 1 Years of education: 13 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 All necessary suppl ies. No oxygen bleed in. Diagnosis Code(s)327.23. Length of Need: Lifetime. Please send orde r to [facility] This is not a new order, just a change in settings. RESPIRATORY THERAPY [place] [facility] [place] Please provide patient with necessary CPAP supplies ( she did not specify, okay to send order as appropriate) Diagnosis Code(s)327.23 . Length of Need 99 months. Please send order to [facility]. ROFLUMILAST (DALIRESP) 500 M[address] TABLET Take [...] | Office | Sleep Medicine | Meghan Gacria MD | | | 2019 | Visit [...] | | | | | | [place] [address] | | | | | | [phone] | | | | | | | | +--------+---------+ + + + | 03/01/ | Office | Pulmonology | Mukul Clark MD | | | 2020 | Visit | | [address] | | | | | | [place] | | | | | | [address] | | | | | | | [...] W?MRN: | | | | | | [id number] | | | [id number] | | | his | | | [...] [address] | [place] | [phone] | | [facility] | | [address] | | | - LABORATORY | | [...] | | | | | | [employer] | | | | | [...] | [facility] | [address] | [place] | [phone] | | [facility] | | [address] | | | - LABORATORY | | [...] | [address] | [place] | [phone] | | [facility] | | [address] | | | - LABORATORY | | [...] mL/min/1.73m2 | [facility] | | | [employer] | RATE,ESTIMATED | | MEDICAL | | | | mL/min/1.41f9Seox than | | CENTER - | | [...] | [facility] | [address] | [place] | [phone] | | [facility] | | [address] | | | - LABORATORY | | [...] | | | | | | [facility] | | | | | | MEDICAL [...] [address] | [place] | [phone] | | [facility] | | [address] | | | - LABORATORY | | [...] | | | | RAFA WELLS MD ([id number]) | | | | | | on [...]
--- OUTSIDE RECORDS SUMMARY | ~2019-09-27 | XMS | Encounter Summary ---
Demographics + + + | Address | [address] | | | [place] [address] | + + + | Home Phone [...] Team Providers + +------+ + | Care Contestant Coordinator Name | Role | Phone | [...] + + | 11/06/ | Clinical | [facility] UROLOGY | Anrdiy Weber | Interstitial | | 2016 | Support | [address] | MD Robert [address] | cystitis (Primary | | | | [place] | [place] | Dx) | | | | [address] | [facility] [place] [place] [place] [address] | | | | | [phone] | [phone] | | | | | | | [...] Action Dose Route Administered By 11/07/2015 Given 62435 Units Subcutaneous Nancy Dalal CMA lidocaine 2% [...] | | | | | | [place] [address] | | | | | | [phone] | | | | | | | | +--------+---------+ + + + | 03/01/ | Office | Pulmonology | Mukul Clark MD | | | 2020 | Visit | | [address] | | | | | | [place] | | | | | | [address] | | | | | | | [...] 1.001 - 1.030 | | | | [place], | | | | | | [facility], [...]
--- OUTSIDE RECORDS SUMMARY | ~2019-09-27 | XMS | Encounter Summary ---
Demographics + + + | Address | [address] | | | [place] [address] | + + + | Home Phone [...] Team Providers + +------+ + | Care Advertising Solicitor Name | Role | Phone | + [...] | (obstructive | [address] | [place] | | | | | sleep | [place] | [place], | | | | | apnea) | [place], [place] | [place] [address] | | | | | Procedures | [address] | Phone: | | | | | [place] POLYSOM | Phone: | [phone] | | | | | 6/>YRS SLEEP | [phone] | Fax: | | | | | 4/> ADDL | Fax: | [phone] | | | | | ALESSIA ATTND | [phone] | | | | | | [place] POLYSOM | | | | | | [...] + | 08/03/ | Hospital | [facility] | Meghan Garcia MD | GARRY (obstructive | | 2019 - | Encounter | MED CTR SLEEP | [address] | sleep apnea) | | | | CENTER [address] | [place] | | | 08/04/ | | [place] | [address] | | | 2018 | | [address] | | | | | | [phone] | | | +--------+ + + + [...] apnea); CSA (central sleep apnea) Daisy [facility] [place] [address] Polysomnogram Report on Rosario Malik performed on [...] years before she was switched to bilevel [id number]. I reviewed the notes from Dr Chris Alarcon in [place], [place].It indicates that patient had CPAP intolerance [...] day for h er COPD through her investment fund manager. We performed a CPAP titration study on [...] mask and Gupta was much lower, [facility] AHI was 6 and 13. It was sometimes higher. Patient continued to have awakenings at [facility], and also excessive daytime [...] sleep quality during sleep study as usual. Clerical Receptionist note: Patient continues to struggle with mask [...] this chart may have been created with [employer] voice recognition software. Occasi onal wrong-word or [...] [place] | | | | | | [address] | | | | | | | | +--------+---------+ + + + | 11/24/ | Office | Cardiology | [place], | | | 2019 | Visit | | SINDHU Erickson [address] | | | | | | [place], | | | | | | [place] [address] | | | | | | [phone] | | | | | | | | +--------+---------+ + + + | 03/01/ | Office | Pulmonology | Mukul Clark MD | | | 2020 | Visit | | [address] | | | | | | [place] | | | | | | [address] | | | | | | | [...] [facility] | | | [place] [address] Polysomnogram | | | Report on Rosario [...] from Dr. Alarcon | | | in [place], [place]. It indicates that patient had CPAP [...] her COPD through her | | | investment fund manager. We performed a CPAP titration study on [...] | | | during sleep study as usual.Clerical Receptionist note: Patient continues to | | | [...] this chart may have been created with [employer] | | | voice recognition software. Occasional [...] this chart may have been created with [employer] voice | | |recognition software. Occasional wrong-word [...] PDT [facility] | | [place], [place] [id number] Report on Rosario Daniels | [place] performed [...] | | notes from Dr. Alarcon in [place], [place]. It indicates that patient had | [...] the day for her COPD through her investment fund manager.We performed a | | CPAP titration study [...] quality during | | sleep study as usual.Clerical Receptionist note: Patient continues to struggle with mask [...] this chart may have been created with [employer] voice recognition software. | | Occasional wrong-word [...]
--- OUTSIDE RECORDS SUMMARY | ~2019-09-27 | XMS | Encounter Summary ---
Demographics + + + | Address | [address] | | | [place] [address] | + + + | Home Phone [...] Providers + +------+ + | Care Vocational Rehabilitation Technician Name | Role | Phone | [...] on | MED CTR THERAPY PT | VETERINARY BACTERIOLOGIST [address] | | | | | OP [address] | [place], [place] | | | | | [place], [place] | [address] | | | | | [address] | [phone] | | | | | [phone] | | | +--------+ + + + [...] Low PTA - 06/02/2013 9:39 [facility] OP [address] [place] [address] Cancellation/No Show Date: 06/02/2013 Patient Information Patient [...] | | | | | | [place] [address] | | | | | | [phone] | | | | | | | [...]
--- OUTSIDE RECORDS SUMMARY | ~2019-09-27 | XMS | Encounter Summary ---
Demographics + + + | Address | [address] | | | [place] [address] | + + + | Home Phone [...] Providers + +------+ + | Care Occupational Work Experience Teacher Name | Role | Phone | + +------+ + | Juan Cherry DO | PCP | | + +------+ + Encounter Details +--------+ + + + + | Date | Type | Department | Care Team | Description | +--------+ + + + + | 09/09/ | Hospital | [facility] | Conversion | Pain | | 2015 | Encounter | CONVERSION [address] | Transaction, | | | | | [address] | Provider Unknown | | | | | [place], [place] | [phone] | | | | | [address] | | | | | | [phone] | | | +--------+ + + + [...] [place] | | | | | | [address] | | | | | | | | +--------+---------+ + + + | 11/24/ | Office | Cardiology | [place], | | | 2019 | Visit | | SINDHU Erickson [address] | | | | | | [place] | | | | | | [place] [address] | | | | | | [phone] | | | | | | | | +--------+---------+ + + + | 03/01/ | Office | Pulmonology | Mukul Clark MD | | | 2020 | Visit | | [address] | | | | | | [place] | | | | | | [address] | | | | | | | [...]
--- OUTSIDE RECORDS SUMMARY | ~2019-09-27 | XMS | Encounter Summary ---
Demographics + + + | Address | [address] | | | [place] [address] | + + + | Home Phone [...] Providers + +------+ + | Care Mail Processor Name | Role | Phone | [...] | | | | [facility] | [address] | [address] | | | | | EXERCISE | [place], | [place] | | | | | | [place] [address] | [place], [place] | | | | | | Phone: | [address] | | | | | | [phone] | Phone: | | | | | | Fax: | [phone] | | | | | | [phone] | Fax: | | | | | | | [phone] | +--------+--------+ + + + + Encounter Details +--------+---------+ + + + | Date | Type | Department | Care Team | Description | +--------+---------+ + + + | 08/20/ | Office | [facility] | Jared Mcdonough, | Chronic obstructive | | 2017 | Visit | MED CTR CARDIAC | [address] | pulmonary disease, | | | | REHABILITATION [address] [place], | unspecified COPD | | | | [address] [place] | [place] [address] | type (HCC) (Primary | | | | [place] [address] | [phone] | Dx) | | | | [phone] | | | +--------+---------+ + + + [...] [place] | | | | | | [address] | | | | | | | | +--------+---------+ + + + | 11/24/ | Office | Cardiology | [place], | | | 2019 | Visit | | SINDHU Erickson [address] | | | | | | [place] | | | | | | [place] [address] | | | | | | [phone] | | | | | | | | +--------+---------+ + + + | 03/01/ | Office | Pulmonology | Mukul Clark MD | | | 2020 | Visit | | [address] | | | | | | [place] | | | | | | [address] | | | | | | | | +--------+---------+ + + + documented as of this encounter Visit Diagnoses + + | Diagnosis | + + | Chronic obstructive pulmonary disease, unspecified COPD type (HCC) - Primary | + + documented in this encounter"
[~2019-09-27 15:45] MED LIST changes: +ADVAIR 100-501 EACH INH; +IRON325 M1 PO
--- OUTSIDE RECORDS SUMMARY | 2019-09-27 15:48 | XMS ---
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 Care History Medical/Surgical 01/18/2019 [facility] - Patient is currently established with [facility]. If patient is seen in the ED during business hours. Please contact CHWs at [facility]. Care Recommendation: If this patient has had [...] providing care. E.D. VISIT COUNT (12 MO.) [address] [facility] TOTAL 4 NOTE: Visits indicate total known visits. ED/UCC VISIT TRACKING (12 MO.) 09/27/2019 15:[address] [facility] [place] TYPE: Emergency COMPLAINT: - PAIN 06/16/2019 05:29 [facility] TYPE: Emergency COMPLAINT: - ABDOMINAL PAIN DIAGNOSES: - MCFP (current) use of inhaled steroids - Allergy status to analgesic agent status - MCFP (current) use of oral hypoglycemic drugs - Diverticulitis of large intestine without perforation or absc - Chronic obstructive pulmonary disease, unspecified - Allergy to other foods - Lower abdominal pain, unspecified - Nicotine dependence, unspecified, uncomplicated - Allergy status to other antibiotic agents status - Other mcc (current) drug therapy 02/28/2019 06:38 [facility] TYPE: Emergency COMPLAINT: - CHEST PAIN DIAGNOSES: - Other chest pain - Allergy status to other antibiotic agents status - MCFP (current) use of aspirin - Chronic obstructive pulmonary disease, unspecified - MCFP (current) use of oral hypoglycemic drugs - Nicotine dependence, unspecified, uncomplicated - Other rat exterminator (current) drug therapy - Allergy status to analgesic agent status - Other nonmedicinal substance allergy status 01/15/2019 02:41 [facility] TYPE: Emergency COMPLAINT: - URINE PROBLEM INPATIENT VISIT TRACKING (12 MO.) 01/15/2019 14:05 [facility] TYPE: Medical Surgical COMPLAINT: - ACUTE DIVERTICULITIS DIAGNOSES: - Chronic obstructive pulmonary disease, unspecified - MCFP (current) use of systemic steroids - MCFP (current) use of opiate analgesic - remote computer terminal operator (current) use of opiate analgesic - Allergy status to other drugs, medicaments and biological sub - Adverse effect of glucocorticoids and synthetic analogues, luna - Fibromyalgia - MCFP (current) use of inhaled steroids - Allergy status to other antibiotic agents status - Dorsalgia, unspecified - Chronic obstructive pulmonary disease, unspecified - Adverse effect of glucocorticoids and synthetic analogues, luna - Mental disorder, not otherwise specified - Other mcc (current) drug therapy - Fibromyalgia - Drug-induced adrenocortical insufficiency - Dorsalgia, unspecified - remote computer terminal operator (current) use of oral hypoglycemic drugs - MCFP (current) use of inhaled steroids - remote computer terminal operator (current) use of systemic steroids - Allergy status to other drugs, medicaments and biological sub - Unspecified osteoarthritis, unspecified site - Allergy status to other antibiotic agents status - Other rat exterminator (current) drug therapy - Diverticulitis of large intestine without perforation or absc - Mental disorder, not otherwise specified - remote computer terminal operator (current) use of oral hypoglycemic drugs - Unspecified osteoarthritis, unspecified site - Drug-induced adrenocortical insufficiency [email or web address]
--- NOTE | 2019-09-27 23:42 | NUR ---
PT TO CCU FROM MED SURG, REPORT RECEIVED FROM AL TYLER. PT IS ALERT. STATES FEES AWFUL, THAT NEEDS TO VOID, HAS ABD PAIN AND IS HAVING DIFFICULTY BREATHING.DR BOSWELL IN ROOM. IS ABLE TO SPEAK IN FULL SENTENCES. STATES THE DIFFICULTY BREATHING STARTED WHEN EXPOSED TO SOMEONES PERFUME. BREATH TONES SOMEWHAT DECREASED BASES WITH SCATTERED WHEEZES. SECOND IV STARTED PER KORTNEY TYLER. 16 F TRONCOSO CATH INSERTED WITH RETURN CLEAR YELLOW URINE. RT IN ROOM TO PLACE PT ON BIPAP AND GIVEN NEB.
--- NOTE | 2019-09-28 00:13 | NUR ---
LE 2157 PATIENT ARRIVES VIA STRETCHER WITH JOSELIN TYLER/CIGAR PACKING EXAMINER. PT TO RM 111, PT ABLE TO MOVE TO BED WITH MINIMAL ASSIST. SUNIL LEATHER SEASONER IN ROOM. VITALS OBTAINED. PT STATES SHE SLEEPS WITH A BIPAP AT HOME. DISCUSSED AGT WITH SUNIL, DUE TO PENDING COVID 19 TEST PT MOVED TO RM 117.
--- NOTE | 2019-09-28 00:15 | NUR ---
LE 97[address] DR. WOODALL TO FLOOR TO SEE PT. IN TO ROOM TO HAVE PT SIGN CONSENT FOR SURGERY. PT ASKING TO USE HER INHALER SHE FEEL SOB. PULSE OX PLACED, 91 % ON RA. RESPIRATORY ASSESMENT COMPLETE. DISCUSSED FINDINGS WITH DR. WOODALL AND REQUESTED PT TO USE OWN INHALERS. OKAY PER DR. WOODALL. BACK TO PT ROOM. RN AT BEDSIDE ASSISTING PT WITH SEARCH FOR INHALER. NO INHALERS FOUND IN PT BELONGINGS. PT STATES "MY GRANDDAUGHTER MUST HAVE FORGOT TO PACK THEM." DISCUSSED ISSUE WITH PT, WILL ADVISE MD THAT PT DOES NOT HAVE INHALERS AT THIS TIME.
--- NOTE | 2019-09-28 00:19 | NUR ---
NIRANJAN 2219 DISCUSSED NEED FOR INHALERS WITH DR. WOODALL. DR. WOODALL DOWN TO ASSESS PT. PER DR. WOODALL SURGERY CANCELED DUE TO RESPIRATORY STATUS. DR. WOODALL REQUEST TO TRANSFER PT TO CCU DUE TO RESPIRATORY STATUS. RN AT BEDSIDE, REQUEST FOR RT TO COME TO ROOM FOR NEB TREATMENT AND BIPAP SET UP CCU ROOM WILL NEED TO BE CLEANED BEFORE TRANSFER. PT CONTINUES TO C/O FEELING SOB, THOUGH O2 SAT STABLE. PT STATES "I STARTED FEELING LIKE THIS WHEN I GOT HERE." PT BELIEVES HER REACTION IS DUE TO EXPOSURE TO PERFUME/SMELL. WILL CONTINUE TO MONITOR PT.
--- NOTE | 2019-09-28 00:27 | NUR ---
LE 2340 REPORT GIVEN TO ZAHEER TYLER. PT TRANSPORTED TO CCU BY SUNIL TYLER AND PRICE JACKSON.
--- NOTE | 2019-09-28 01:04 | NUR ---
BP 80/49, PT IS SLEEPING WITH BIPAP IN PLACE. DR WOODALL NOTIFIED. WILL MONITOR URINE OUTPUT.
--- NOTE | 2019-09-28 02:50 | NUR ---
REPORT RECEIVED FROM NAYELI SCHWAB. IN TO CHECK UO AND START ANTIBIOTIC INFUSION. PT REMAINS ON BIPAP 01/28 @ 21%, SPO2 93%. ANTERIOR LUNGS CLEAR AT THIS TIME. PT RESTING WITH EYES CLOSED, WOKE WHILE I WAS IN ROOM. NO REQUESTS OR COMPLAINTS AT THIS TIME. CALL LIGHT WITHIN REACH.
--- NOTE | 2019-09-28 04:28 | NUR ---
ASSESSMENT COMPLETED. PT SLEEPING, WAKES EASILY WHILE I AM IN ROOM. LUNGS CLEAR, SLIGHTLY DIM IN BASES AT THIS TIME. BIPAP REMAINS IN PLACE, SETTINGS UNCHANGED. HR REGULAR. BOWEL TONES ACTIVE. IVF INFUSING WNL, IV DRESSINGS INTACT. TRONCOSO PATENT, DRAINING FREELY. SKIN GROSSLY INTACT. NO COMPLAINTS OF PAIN OR NAUSEA AT THIS TIME. NO FURTHER REQUESTS AT THIS TIME, CALL LIGHT WITHIN REACH.
--- NOTE | 2019-09-28 06:16 | NUR ---
IN TO GIVE MORNING MEDICATIONS, DRAW MORNING LABS, AND EMPTY TRONCOSO CATHETER BAG. PT REQUESTS TO TAKE OFF BIPAP MASK, REMOVED AT THIS TIME. PT REPORTS FEELING COLD, ORAL TEMP 97.7, WARM BLANKETS PROVIDED. PT ALSO STATES THAT SHE FEELS LIKE SHE NEEDS A BREATHING TREATMENT FOR HER ASTHMA, R.T. CALLED. PT DENIES FURTHER NEEDS AT THIS TIME, CALL LIGHT WITHIN REACH.
--- NOTE | 2019-09-28 08:09 | NUR ---
PATIENT RESTING IN BED UPON INITIAL ASSESSMENT. PATIENT STATES HER PAIN IS PRETTY SIGNIFICANT, STILL A 5-6/10 AND MOSTLY ON THE RIGHT SIDE. PATIENT GIVEN AM MEDS WITH A SIP OF WATER. SP02 AROUND 90%. AUDIBLE EXP AND INSP WHEEZES HEARD THROUGHOUT. PT STATES HER BREATHING IS FAIR. IV MAG AND IV POTASSIUM STARTED. PT TO GO TO SURGERY SOON. PRE SURGERY CHLORAHEXIDINE BATH DONE PER CNAs. CONTINUE TO MONITOR.
[2019-09-28] MEDS ORDERED: MONTELUKAST SOD10 MG PO (10:55)
[2019-09-28] MEDS ORDERED: ESZOPICLONE3 MG PO (10:58)
[2019-09-28] MEDS ORDERED: CIPROFLOXACIN500 MG PO (11:38)
--- NOTE | 2019-09-28 11:41 | NUR ---
09/28/19 1141 Jia York 1111 PT ARRIVED IN PACU NON RESPONSIVE TO NOXIOUS STIMULI. 1125 PT REACTIVE TO VERBAL STIMULI. 1130 DR AT BEDSIDE. PT FELL ASLEEP WHILE DR TALKING TO HER. 1140 C/O ABD PAIN, THEN FALLS BACK TO SLEEP.
[2019-09-28] MEDS ORDERED: METRONIDAZOLE500 MG PO (11:47)
[2019-09-28] MEDS ORDERED: ADVAIR HFA 230-12 GM INH (11:50)
[2019-09-28] MEDS ORDERED: CLONAZEPAM2 MG PO (11:57)
--- NOTE | 2019-09-28 12:13 | NUR ---
PATIENT RETURNS FROM PACU AT THIS TIME. PATIENT IN 127 STILL. PT SOMEWHAT DROWSY BUT ANSWERING QUESTIONS.
--- NOTE | 2019-09-28 12:38 | NUR ---
PATIENT STILL DROWSY FROM SURGERY, BUT EASIER TO UNDERSTAND AFTER A MOUTH SWAB. PATIENT WANTING TO HAVE HER PHONE PLUGGED IN AND WILL LOOK FOR A CALL WORKER PERSON FOR HER. OXYGEN SP02 HOVERING AROUND 90% ON ROOM AIR - WILL CONTINUE TO MONITOR. CLEAR LIQUID TRAY ORDERED FOR PATIENT.
--- NOTE | 2019-09-28 13:00 | NUR ---
PATIENT STATES HER PAIN IS 7/10 AT THIS TIME IN HER ABDOMEN. PT MEDICATED WIHT MORPHINE - SEE EMAR. PATIENT STILL FAIRLY DROWSY. CLEAR LIQUID TRAY IN ROOM BUT PATIENT TOO SLEEPY TO TRY AND EAT OR DRINK AT THIS TIME. WILL CONTINUE TO MONITOR. LAST BP 119/57. PT PLACED ON 2 L NC FOR SP02 STAYING BETWEEN 86-90% ON ROOM AIR. PT ASKING WHERE HER PARENTS ARE. PHONE PLUGGED IN TO CHARGE FOR APTIENT.
--- NOTE | 2019-09-28 13:49 | NUR ---
PT RETURNED FROM PACU. NAYELI MARTINEZ REQUESTS I LET PT REST. SLEEPING AT THIS TIME, WILL FOLLOW
--- NOTE | 2019-09-28 15:52 | NUR ---
PATIENT MEDICATED FOR PAIN - SEE EMAR. PATIENT STATES HE PAIN IS A 10.5+3. PATIENT HAS BEEN FAIRLY DROWSY BUT MORE AROUSEABLE THAN EARLIER. PATIENT ON HER CELL PHONE WITH FAMILY/FRIENDS. ABA EMPTIED AND MARLI EMPTIED FOR SANGINOUS BLOOD. ICE PACK PROVIDED FOR PATIENT. SP02 95% ON 1 L AND WILL BE TURNED OFF TO ROOM AIR.
--- NOTE | 2019-09-28 17:26 | NUR ---
PATIENT GIVEN TYLENOL IV FOR PAIN 12/03. PATIENT STATES THAT THE MORPHINE HAS NOT BEEN TOUCHING HER PAIN, JUST MAKING HER FEEL GOOFY. TRYING TYLENOL NOW. PATIENT DENIES BEING HUNGY AT THIS TIME. CONTINUE TO MONITOR.
--- NOTE | 2019-09-28 17:44 | PATH ---
[facility] [address], [place] [address] Signed ORDERING PHYSICIAN: Charbel Amato MD PATIENT NAME: JADYN SCHMITZ GENDER: F : 1965 SPECIMEN(S): No Source Given MOLECULAR PATHOLOGY RESULTS: SARS-CoV-2 Not Detected ADDITIONAL NOTES.: The Lampe Fusion SARS-CoV-2 Assay is a multiplex real-time PCR (RT-PCR) in vitro diagnostic test intended for the qualitative detection of RNA from SARS-CoV-2 from individuals who meet COVID-19 clinical and/or epidemiological criteria. In general, SARS-CoV-2 RNA can be detected during the acute phase of infection. Positive results indicate the presence of SARS-CoV-2 RNA. Clinical correlation with patient history and other diagnostic information is necessary to determine patient infection status. Positive results do not rule out bacterial infection or co-infection with other viruses. Negative results do not preclude SARS-CoV-2 infection and should not be used as the sole basis for patient management decisions. Negative results must be combined with other clinical observations, patient history, and epidemiological information. The Lampe Fusion SARS-CoV-2 Assay is not yet approved or cleared by the [place] FDA. When there are no FDA-approved or cleared tests available, and other criteria are met, FDA can make tests available under an emergency access mechanism called an Emergency Use Authorization (EUA). The EUA for this test is supported by the [place] of Health and Human Service's (HHS's) declaration that circumstances exist to justify the emergency use of in vitro diagnostics for the detection and/or diagnosis of the virus that causes COVID-19. This EUA will remain in effect for the duration of the COVID-19 declaration justifying emergency of IVDs, unless it is terminated or revoked by FDA, after which the test may no longer be used. The Lampe Fusion SARS-CoV-2 Assay is for use only under EUA in US laboratories certified under the Clinical Laboratory Improvement Amendments of 1988 (CLIA) to perform high complexity tests. [facility] is certified under CLIA to perform high complexity PATIENT NAME: JADYN SCHMITZ [facility] DATE OF : [birth year] REPORT #: [id number] PHYSICIAN: ESTELA PATHOLOGY PCP: YONG PATEL DO REPORT IS CONFIDENTIAL AND NOT TO BE RELEASED WITHOUT AUTHORIZATION [address] [address] Signed clinical laboratory testing. PERFORMING LABORATORY.: Molecular testing was performed by [facility] [place] [address] (Costume Draper: Parker Plascencia D.O.; CLIA#: [id number]) Diagnostician: System Interface Pathologist Electronically Signed 09/28/2019 Copies: ~ PATIENT NAME: JADYN SCHMITZ [facility] DATE OF : [birth year] REPORT #: [id number] PHYSICIAN: ESTELA BUSTAMANTE PCP: YONG PATEL DO REPORT IS CONFIDENTIAL AND NOT TO BE RELEASED WITHOUT AUTHORIZATION
--- NOTE | 2019-09-28 18:38 | NUR ---
PATIENT ON PHONE WITH HER FRIEND CAMILA. PATIENT STATES THAT THE TYLENOL DID WAY MORE FOR HER PAIN THAN THE MORPHINE DID, WHICH MADE HER JSUT FEEL "GOOFY" BUT WAS NOT TOUCHING HER ABDOMONIAL PAIN. PATIENT'S HOME MEDICATION OF TRAMADOL ORDERED FOR PATIENT AFTER DISCUSSING WITH DR. WOODALL ON PHONE AND GIVING AN UPDATE TO HOW PATIENT IS DOING. PT REMAINS ON ROOM AIR AT THIS TIME AND CURRENTLY SP02 IS 92%. OTHER AM MORNING MEDS ORDERED FOR PATIENT INCLUDING HER SINGULAIR AND HER LEVOTHYROXINE. MARYBELN ALSO HUNGRY AND WANTING TO ORDER A TURKEY SANDWICH, WHICH SHE IS NOW EATING. ICE PACK REMAINS HELPFUL TO ALLEVIATE PAIN IN ABDOMINAL AREA.
--- NOTE | 2019-09-28 20:15 | NUR ---
SHIFT REPORT RECEIVED FROM NAYELI MARTINEZ. ASSESSMENT COMPLETED AT THIS TIME. PT IS ALERT/ORIENTED, REPORTS 10/10 RLQ AND LOW BACK PAIN, SCHEDULE ULTRAM GIVEN AND NEW ICE PACK PROVIDED. HR REGULAR. LUNGS DIMINISHED, ON RA, PT REQUESTS BREATHING TREATMENT, R.T. CALLED. BOWEL TONES ACTIVE, ABDOMEN MILDLY DISTENDED AND TENDER TO PALPATION, DENIES NAUSEA. SURGICAL SITE INCLUDES MIDLINE DRESSING, LAP SITE TO THE UPPER ABDOMEN, AND MARLI SITE TO RLQ. ALL DRESSINGS ARE C/D/I, SCANT AMOUNT OF OLD DRAINAGE TO MIDLINE AND MARLI DRESSINGS. MARLI EMPTIED OF 10ML SEROSANGUINOUS DRAINAGE. TRONCOSO PATENT, DRAINING FREELY, PALE YELLOW URINE, CATH CARE PROVIDED. SCD'S IN PLACE. IV SITE INTACT, PATENT, FLUIDS INFUSING WNL. R.T. NOW IN ROOM TO PLACE PT ON BIPAP. NO FURTHER REQUESTS, CALL LIGHT WITHIN REACH.
--- NOTE | 2019-09-28 22:56 | NUR ---
PT ASLEEP AT THIS TIME, NO APPARENT DISTRESS, RESPIRATIONS EVEN AND UNLABORED, BIPAP IN PLACE. RR:13, HR:76, SPO2: 94%.
--- NOTE | 2019-09-29 00:50 | NUR ---
ASSESSMENT COMPLETED, PT AWOKE SOMEWHAT CONFUSED TO THE TIME AND SURROUNDINGS, BUT WAS EASILY REORIENTED. PT PAINFUL, REPORTS ABDOMINAL PAIN 10/10, IV TYLENOL AND 4MG IV MORPHINE ADMINSITERED. DENIES NAUSEA. LUNGS DIM, PT HAD REMOVED CPAP MASK, BELIEVING THAT IT WAS MORNING AND TIME TO WAKE UP. PT REQUESTS BREATHING TREATMENT, R.T. CALLED. HR REMAINS REGULAR. BOWEL TONES REMAIN ACTIVE. DRESSINGS TO SURGICAL SITES UNCHANGED. MARLI REMAINS TO SUCTION, NOTHING TO EMPTY AT THIS TIME. SCD'S IN PLACE. TRONCOSO PATENT.
--- NOTE | 2019-09-29 01:50 | NUR ---
PT ASLEEP AT THIS TIME WITH CPAP IN PLACE. NO APPARENT DISTRESS. RESPIRATIONS EVEN AND UNLABORED, RR:12, HR: 81, SPO2:92%.
--- NOTE | 2019-09-29 04:30 | NUR ---
ASSESSMENT COMPLETED. PT AWAKE, REMOVED CPAP AT THIS TIME. ALERT/ORIENTED, REPORTS 6/10 NECK PAIN, PO TYLENOL AND HEAT PACK PROVIDED. LUNGS CLEAR, DIM IN BASES, RA. HR REGULAR. BOWEL TONES ACTIVE, DENIES NAUSEA. DRESSING TO SURGICAL SITES UNCHANGED. MARLI EMPTIED OF 15ML SEROSANGUINOUS FLUID. TRONCOSO PATENT, DRAINING FREELY. IV SITES INTACT AND WNL. PT DENIES REQUESTS AT THIS TIME, CALL LIGHT WITHIN REACH.
--- NOTE | 2019-09-29 06:00 | NUR ---
IN TO GIVE MORNING MEDS. PT REQUESTS TO GET UP TO CHAIR. UP WITH SBA AND FWW TO CHAIR, PT TOLERATED WELL. COFFEE PROVIDED PER REQUEST, PT HAS ORDERED HER BREAKFAST. NO FURTHER REQUESTS, CALL LIGHT WITHIN REACH.
--- NOTE | 2019-09-29 07:17 | NUR ---
PT REPORTS 10/10 RLQ ABDOMINAL PAIN, ULTRAM GIVEN AT THIS TIME.
--- NOTE | 2019-09-29 07:42 | NUR ---
PATIENT UP IN CHAIR. STATES HER PAIN IS A 9.5/10 BUT ABLE TO REST COMFORTABLY IN CHAIR WITH THIS. HEAT PACK ON NECK AND ICE PACK ON ABDOMEN. TRONCOSO REMAINS IN. WILL DISCUSS WITH D/C THIS. IVF CONTINUE AT 85 ML/HR. PAIENT WAITING ON HER BREAKFAST. INCISION SITES C/D/I WITH MINIMAL SHADOW DRAINAGE ON MIDLINE INSICISON. MARLI DRAINING SEROSANGINOUS FLUID. CONTINUE TO MONITOR.
--- NOTE | 2019-09-29 08:55 | NUR ---
PT FAMILY LEFT. RT KATIE STATES SHE ADMINISTERED A TREATMENT AND THEN OFFERED BIPAP PT IS GOING BACK TO SLEEP. PT DECLINED BIPAP.
--- NOTE | 2019-09-29 10:58 | NUR ---
PATIENT USES CALL LIGHT AND REQUESTING HAND MEDCICATION. PATIENT GIVEN TYLENOL AND ULTRAM AT THIS TIME. HALF DOSE OF TYLENOL GIVEN TO ENSURE PATIENT DOES NOT GO OVER ALLOWED TOTAL DOSE FOR 24 HOUR PERIOD. PATIENT WANTING TO REST MORE. TRONCOSO INTACT DRAINING YELLOW URINE. WAITING FOR CALL FROM DR. WOODALL TO ASSESS IF TRONCOSO CAN BE D/C OR NOT.
--- NOTE | 2019-09-29 11:45 | NUR ---
ABA D/C PER DR. BOSWELL VERBAL ORDER. PT LOOKING AT MENU FOR LUNCH.
--- NOTE | 2019-09-29 14:00 | NUR ---
ASSISTED PT TO BSC FOR APPROX 30ML YELLOW URINE. PT THOUGHT SHE MIGHT HAVE A BM BUT DID NOT. IS WONDERING IF SHE NEEDS SOMETHING STRONGER.
--- NOTE | 2019-09-29 14:15 | NUR ---
Spoke with Rosario. She states she lives in a 2 story aptm but does not access the second floor, 3 steps into the home. She lives alone. She is disabled x 10 years and her step father drives her. Daughter, Juana, assists her when needed. Pt has a fww. She plans on dc to home when able to dc. She not working, but denies any financial issues. She has used both food doty, but states she makes to much money for [employer]. 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 She states she has some mental issues, but declines a referral to [facility].
--- NOTE | 2019-09-29 14:47 | NUR ---
Pt given solumedrol, rates pain 9/10, given ordered dose of gabapentin 800mg. During this intervention with this patient, patient is on speaker phone talking to what sounds like an adult male. Discussing world issues, no grimace noted, pt not tearful or withdrawn at this time. Pt continues to talk while taking medication and interacting with this RN. Pt answers questions appropriately, and is oriented to person/place/time.
--- NOTE | 2019-09-29 16:09 | NUR ---
PATIENT USES CALL LIGHT AND STATES SHE NEEDS TO GET UP TO BATHROOM AND TRY HAVE A BM BECAUSE HER ABDOMEN IS HURTING SO BAD. MARLI NOTED TO HAVE AIR IN IT. MARLI DEPRESSED AND THEN PATIENT UP TO BATHROOM. WHILE WALKING TO BATHROOM, PATIENT'S MARLI FILLS BACK UP WITH AIR. PATIENT ASKING FOR PAIN MEDICATION AT THIS TIME AND WILL BE GIVEN SCHEDULED TRAMADOL. REPORT GIVEN TO EMMY ON MED/SURG WHO WILL RESUME CARE OF PATIENT IN ROOM 110.
--- NOTE | 2019-09-29 16:17 | NUR ---
PATIENT REPORTS THAT HER ABDOMEN FEELS EVER MORE DISTENDED THIS AFTERNOON, AND THAT HER PAIN IS WORSE. WILL NOTIFY DR. WOODALL.
--- NOTE | 2019-09-29 16:42 | NUR ---
PATIENT AMBULATES TO MED/SURG WITH HER WALKER. PT NOTES THAT SHE FEELS A LITTLE BETTER AFTER THIS AMBULATION. CALL IN TO DR. WOODALL TO DISCUSS THESE FINDINGS.
--- NOTE | 2019-09-29 16:51 | NUR ---
Patient ambulates from CCU room 127 to room 110 with pushpa and NAYELI Rosado from CCU. Assessment completed. States she is a bit light headed from walk. Assessment completed. States pain in abdomen is 13/10 at this time. Warm blanket to abdomen per patient request. Denies other needs at this time. Call light in reach, bed rails up X2.
--- NOTE | 2019-09-29 18:24 | HP ---
[facility] [place] [facility] [address], [place] [address] Signed ADMISSION DATE: 09/27/2019 REASON FOR ADMISSION: Probable perforated appendicitis. HISTORY OF PRESENT ILLNESS: This 54-year-old white woman has a history of recurrent diverticulitis. She has been admitted by me in the past for this. The patient called me on Friday (today is Friday) describing a recurrent abdominal pain in the right lower abdomen. She asked if she should present to the emergency room and I advised that she might indeed do so, as her problem may not be recurrent diverticulitis, but rather appendicitis. She told me that her diverticulitis always presents with right lower abdominal pain and then progresses to left-sided pain. On that basis, I called prescription to [facility], [place] [address], anticipating to see her today or Friday in the office, and she was to call me or to present to the emergency room if her symptoms were worsening. I received a message today in the office that she self presented to the emergency room. She was evaluated by Dr. Rodriguez, who noted her to have right lower abdominal tenderness. CT scan was performed, which shows inflammatory change in the right lower quadrant, highly suggestive of appendicitis with probable perforation of the tip of the appendix. She is admitted for further evaluation and care. She was treated with IV Zosyn, was given some intravenous fluids, though she remained somewhat dehydrated. PAST MEDICAL HISTORY: Markedly notable for probable adrenal insufficiency, for which she takes prednisone 10 mg daily. She was given stress dose steroids of hydrocortisone. Further medical issues include reactive airways disease, hypothyroidism, rmt-dmodfib-aejmzmpcy diabetes mellitus, and pain issues. MEDICATIONS: Listed in the chart, but include: 1. Prednisone 10 mg daily. 2. Zolpidem 10 mg at bedtime. 3. Sumatriptan for headaches. 4. Albuterol inhaler as needed. 5. Hydroxyzine. Electronically Signed By: REKHA WOODALL MD 09/29/19 1824 PATIENT NAME: JADYN SCHMITZ HISTORY AND PHYSICAL DATE OF : [birth year] REPORT #: [id number] PHYSICIAN: REKHA WOODALL MD PCP: YONG PATEL DO REPORT IS CONFIDENTIAL AND NOT TO BE RELEASED WITHOUT AUTHORIZATION [facility] [place] [facility] [address] [place] [id number] Signed 6. Potassium chloride. 7. Pantoprazole. 8. Gabapentin. 9. Synthroid. 10. Metformin. 11. Fluticasone. 12. Iron sulfate. 13. Oxybutynin. 14. Tramadol. SOCIAL HISTORY: She lives alone. She has 3 cats and 1 parrot. This prevented her being admitted to the hospital previously with a bout of diverticulitis, as she did not want to leave her animals alone. Of note, her CT scan of the pelvis today at 5:20 p.m. showed colonic diverticulosis with resolved sigmoid diverticulitis since her evaluation in December of 2018. REVIEW OF SYSTEMS: She denies any shortness of breath or chest pain. Does have rather significant right lower abdominal pain. PHYSICAL EXAMINATION: GENERAL: Pleasant white woman with dry mucous membranes. An IV is in her hand, but is not running, bolus was initiated promptly. VITAL SIGNS: Her temperature was 99.3 at approximately 6:30 p.m.; had 101 at 3:58 p.m. Pulse was as low as 97, as high as 116, blood pressure is running 104/46, O2 saturation 94%. NECK: Shows no thyromegaly or cervical adenopathy. Trachea is midline. CHEST: Shows normal respiratory excursion. She has no wheezing. ABDOMEN: Slightly distended. There is marked tenderness in McBurney's point. Rovsing sign is equivocal. EXTREMITIES: Show no clubbing, cyanosis, or edema. LABORATORY STUDIES: Show a white count of 19.3, hematocrit 44.7, platelets 358,000. Chem profile is normal. Glucose is 122. Liver enzymes essentially normal. Lipase less than 3. Urinalysis specific gravity 1.019, white cells 5 per high-powered field. COVID test is pending. ASSESSMENT AND PLAN: The patient has acute appendicitis with possible perforation given the extent of inflammation in the right lower abdomen. I see no sign of fluid collection per se. Her Electronically Signed By: REKHA WOODALL MD 09/29/19 1824 PATIENT NAME: JADYN SCHMITZ HISTORY AND PHYSICAL DATE OF : [birth year] REPORT #: [id number] PHYSICIAN: REKHA WOODALL MD PCP: YONG PATEL DO REPORT IS CONFIDENTIAL AND NOT TO BE RELEASED WITHOUT AUTHORIZATION [facility] [place] [facility] [address], [place] [address] Signed symptoms started on Friday, today is Friday, but she has had recurrent bouts of diverticulitis, which dissuaded her from seeking attention for right lower abdominal pain, thinking it was her typical diverticulitis. Fluid resuscitation is ongoing. She did receive broad-spectrum antibiotic and I would recommend appendectomy tonight despite its late hour considering her tenderness, her underlying fragility with steroid insufficiency, and other medical problems. A laparoscopic approach will be attempted, but an open procedure may be necessary to include appendectomy and likely placement of drain and irrigation. The risks of bleeding, infection, and other unforeseen complications were reviewed in detail. She understands and wished to proceed. MD INNA Rubio/MUMTAZL /[id number] cc: MD Dr. Michael Hidalgo Copies: LAURA VALENCIA MD ~ Electronically Signed By: REKHA WOODALL MD 09/29/19 1824 PATIENT NAME: JADYN SCHMITZ HISTORY AND PHYSICAL DATE OF : [birth year] REPORT #: [id number] PHYSICIAN: REKHA WOODALL MD PCP: YONG PATEL DO REPORT IS CONFIDENTIAL AND NOT TO BE RELEASED WITHOUT AUTHORIZATION
--- NOTE | 2019-09-29 18:24 | OR ---
[facility] [address] [place], [place] [address] Signed DATE OF OPERATION: 09/28/2019 SURGEON: Rekha Woodall MD DATE OF PROCEDURE: 09/28/2019 PREOPERATIVE DIAGNOSES: 1. Perforated appendicitis. 2. Multiple medical problems including asthma and adrenal insufficiency and bipolar disease. POSTOPERATIVE DIAGNOSES: 1. Right lower quadrant abscess. 2. Perforated appendicitis. PROCEDURES: 1. Laparoscopic drainage of right lower quadrant abscess. 2. Open appendectomy. 3. Infraumbilical open incision. ANESTHESIA: General endotracheal; Nabor Miguel CRNA. INDICATIONS: This 54-year-old white woman has numerous medical problems. She has had chronic recurrent diverticulitis over several episodes including hospitalization or attempts to ask for hospitalization, which she declined in the past. On Friday (today is Friday), she has began having right lower abdominal pain and called me at home regarding this. She thought she may have recurrent diverticulitis. She inquired whether she should go to the emergency room. I said she might well be having appendicitis rather than diverticulitis. She noted that her diverticulitis episodes always began in the right lower quadrant and on that basis preferred rather outpatient management for diverticulitis clinically. This included antibiotics, Cipro, and Flagyl. Yesterday, she was having increasing symptoms and did ultimately presented to the emergency room, where she was evaluated and found to have a CT scan showing no evidence of active diverticulitis, but rather appendicitis with probable perforation of the distal portion of the appendix. The patient has numerous underlying medical problems including reactive airways disease Electronically Signed By: REKHA WOODALL MD 09/29/19 1824 PATIENT NAME: JADYN SCHMITZ OPERATIVE REPORT DATE OF : 69 REPORT #: [id number] PHYSICIAN: REKHA WOODALL MD PCP: YONG CHERRY DO REPORT IS CONFIDENTIAL AND NOT TO BE RELEASED WITHOUT AUTHORIZATION [facility] [address] [place], [place] [address] Signed (asthma), adrenal insufficiency for which she takes prednisone daily and bipolar disease among others. She has been fluid resuscitated given intravenous antibiotics Zosyn and optimized for operation. I had anticipated taking her to surgery last night at about 10:30 p.m., however, she began having a fair amount of wheezing and reactive airways for which consultation with hospitalist was undertaken and she was optimized. She has been getting stress dose steroids, hydrocortisone 100 mg IV q.8 hours. Her electrolytes were normalized, having been shown hypokalemia and hypomagnesemia. She is now optimized anticipating operation for perforated appendicitis presumably. A laparoscopic approach has been outlined, open procedure may be necessary as the findings on CT scan quite an impressive with inflammation. The risks of bleeding, infection, need for open procedure, and other unforeseen complications were reviewed in detail. She understands and wished to proceed. FINDINGS: Marked inflammation of the right lower abdominal area was noted. She had a very floppy cecum. Indeed an abscess was noted at the pelvic brim with a firm inflammatory rind. Perforation of the appendix was obviously the underlying cause a problem with some fecal material outside the cecum itself. The abscess fluid was suctioned and sent for culture laparoscopically. Laparoscopic lysis of adhesions from the upper abdomen was required as well to allow for placement of trocars. Various attempts for resection of the appendix were undertaken. However, dense adherence to the retroperitoneum and a fusion of the distal appendix prompted open appendectomy through the infraumbilical incision, this was accomplished safely. A drain was placed. DESCRIPTION OF PROCEDURE: The patient was brought to the operating room, given a general endotracheal anesthetic. Preoperative antibiotics were already on board as were stress dose steroids. A Mendez catheter was already in place. After satisfactory general endotracheal anesthesia, the abdomen was prepared with a chlorhexidine solution and draped sterilely. An infraumbilical incision was made avoiding the upper midline incision from the past. The abdomen was entered without problem using an open Jaxson technique and pneumoperitoneum achieved to a level of 14 mmHg of carbon dioxide gas. Intraabdominal inspection was undertaken showing no sign of ascites or carcinomatosis, but marked inflammatory changes of small bowel and omentum into the right lower abdomen. Examination of the upper abdomen showed normal liver. There were dense adhesions in the upper abdomen of omentum to prior midline incision. The right lower quadrant incision was made initially. Plan for laparoscopic lysis of adhesions proximally. This ultimately allowed for the epigastric space to accommodate placement of a 12 mm trocar. The camera was replaced to that site and using two hand manipulation from the right lower quadrant and the umbilical trocar sites, the cecum could be manipulated. A very redundant cecum was noted, but a dense inflammatory mass was noted in the retrocecal area. This was peeled away revealing an abscess cavity with fecal swelling and so forth. A firm rind was Electronically Signed By: REKHA WOODALL MD 09/29/19 1824 PATIENT NAME: JADYN SCHMITZ OPERATIVE REPORT DATE OF : 69 REPORT #: [id number] PHYSICIAN: REKHA WOODALL MD PCP: YONG CHERRY DO REPORT IS CONFIDENTIAL AND NOT TO BE RELEASED WITHOUT AUTHORIZATION [facility] [address] [place] [address] [place], [place] [address] Signed noted on the pelvic brim and the appendix was densely matted to the retroperitoneal structures. With various manipulations, the cecum and ileum could be identified. The dense inflammatory cicatrix of the likely perforated appendix were not readily dissected free from the retroperitoneum laparoscopically, though attempts were made to do so. The base of the appendix was normal in its appearance. The distal 2/3rd had quite matted and inflamed. A window was created between the appendix and the mesoappendix attempting to further dissected, but it was simply not possible on that basis. A banding of open laparoscopic appendectomy was made in favor of an open procedure. The trocars were removed showing no sign of bleeding and the infraumbilical incision extended a few centimeters in plan for a small mini-laparotomy. Given her thin abdominal wall, various manipulations allowed for bringing up of the redundant cecum and blunt dissection of the retroperitoneum with electrocautery. Clips were applied to the blood vessels as necessary securing good hemostasis. Ultimately, the terminal ileum in the cecum was delivered into the wound fully. The appendix was indeed, densely matted to the retrocecal area and mesentery of the cecum and this was freed with electrocautery and application of clips. Ultimately, a window was created between the appendix and mesoappendix more fully, and the mesoappendix dissected free and secured with chromic ties as appropriate. Once the appendix was freed from the retroperitoneum, the base of the appendix was crushed with a straight hemostat and crush everardo ligated with 0 chromic tie. Appendix was amputated. The appendiceal stump was inverted with two separate Z stitches of 2-0 Vicryl. Irrigation was undertaken copiously. Through right lower quadrant trocar site, a 7 mm flat Dick drain was placed into the abscess cavity site. Excess irrigation fluid was suctioned free and plans made for closure. The infraumbilical incision was closed with running #1 PDS suture in the fascial layer. All wounds were copiously irrigated with saline solution. Skin was closed with running subcuticular 3-0 Vicryl. Steri-Strips were applied to the epigastric and infraumbilical midline incision sites. A Mepilex dressing was applied to the infraumbilical site. Gauze was applied to the drain site. The drain was attached to bulb suction. The patient was ultimately extubated and transferred to the recovery room in good condition and suffered no complications. Sponge, needle, and instruments counts were correct x3. Blood loss was about 25 mL. MD INNA Rubio/MUMTAZL /[id number] Electronically Signed By: REKHA WOODALL MD 09/29/19 1824 PATIENT NAME: JADYN SCHMITZ OPERATIVE REPORT DATE OF : 69 REPORT #: [id number] PHYSICIAN: REKHA WOODALL MD PCP: YONG CHERRY DO REPORT IS CONFIDENTIAL AND NOT TO BE RELEASED WITHOUT AUTHORIZATION [facility] [address] [place] [address] [place] [address] Signed cc: Yong Cherry DO Copies: YONG CHERRY DO ~ Electronically Signed By: REKHA WOODALL MD 09/29/19 1824 PATIENT NAME: JADYN SCHMITZ OPERATIVE REPORT DATE OF : 69 REPORT #: [id number] PHYSICIAN: REKHA WOODALL MD PCP: YONG CHERRY DO REPORT IS CONFIDENTIAL AND NOT TO BE RELEASED WITHOUT AUTHORIZATION
--- NOTE | 2019-09-29 20:14 | NUR ---
pt on room air, uses a cpap at hs, cpap at bedside, no c/o sob after walking 2 laps up and down both long hallways. tolerated well, sba/home fww. ivf infusing w/o problems, no c/o adverse reaction to abx.
--- NOTE | 2019-09-29 20:45 | NUR ---
pt medicated with Morphine 5mg IV c/o 12/03 abd pain. abddistended, tender very hypoactive bowel tones auscultated, denies passing rectal gas but has been burping orally. opticoat in place midline abd incision w scant old drainage. MARLI r side w ss drainage. Pt comfortable after walking and going to br, voided 175cc dark yellow urine. Back to bed hob elevated to comfort. RT will set up cpap
--- NOTE | 2019-09-29 22:00 | NUR ---
RESTING, NO FURHTER C/O PAIN OR N/V. AWAKENS EASILY, USING CPAP
--- NOTE | 2019-09-29 23:19 | NUR ---
PT AWAKE, cpap off at ther request at this time, c/o 12/03 abd pain, Medicated with Morphine 5mg Iv and Klonopin 2mg po anxiety. Back to bed, hob elevated to her comofrt. Bed alarm on as a nsg judgement/fall precaution as pt was pulling on IV and trying to get up on her own. easily reoriented
--- NOTE | 2019-09-30 00:09 | NUR ---
alarm going off, pt trying to get out of be, up to br, voided. 1pa/fww, decline cpap at this time, abd dressing zonia intact
--- NOTE | 2019-09-30 02:43 | NUR ---
RESTING, EYES CLOSED, NO RESP DISTRESS, NOT USING CPAP, IVF INFUSING, BED ALARM ON, FLUIDS AND CALL LIGHT AT BEDSIDE
--- NOTE | 2019-09-30 05:15 | NUR ---
Pt up to br, voided, back to bed, very drowsy, back to bed, minimum of assist, call light at bedside
--- NOTE | 2019-09-30 05:40 | NUR ---
pt has slept mos of this shift. uses cpap early 1-2 hrs, then declined to use it. On room air, lungs dim at bases, abd very hypoactive bowel tones, distended, firn,tender, denies passing gas. midline dressing with old drainage, zonia drainaing large amounts of ss drainage. scds in place, edema ankles, ivf infusing w/o problems, no adverse reaction to IV abx. has been medicated with morphine x2 per c/o abdpain with good pain relief. tolerating fluids and diet, no n/v. call light at bedside. up to br voiding QS urine, ambulated x1 tolerated well. uses 1pa sba/fww
--- NOTE | 2019-09-30 07:15 | NUR ---
Report received from Silviano Voss RN. Patient in semi-solomon's in bed with eyes closed at this time. Call light in reach, bed rails up X2. Allowed to rest.
--- NOTE | 2019-09-30 09:42 | NUR ---
WHEN I CAME IN TO DO PATIENT'S VITALS SHE WAS HAVING A HARD TIME KEEPING HER EYES AWAKE. SO NOW PATIENT IS NOW SLEEPING. MIGHT EAT HER BREAKFAST LATER AND GO FOR A WALK ALSO SHE WOULD LIKE TO TAKE A SHOWER.
--- NOTE | 2019-09-30 09:48 | NUR ---
Assessment completed. Patient slurring words, has difficulty keeping eyes open at this time. States pain is currently tolerable and she feels she needs to wake up more before she takes any further medications for pain. Dressing to abdomen is clean, dry and intact. Call light in reach, bed rails up X2. Takes AM medications without difficulty. Rests head back, closes eyes and rests.
--- NOTE | 2019-09-30 11:19 | NUR ---
Resting with eyes closed at this time. IV medication initiated as prescribed. Denies pain. Call light in reach, bed rails up X2. Remains drowsy at this time.
--- NOTE | 2019-09-30 12:46 | PATH ---
[facility] [address] [place], [place] [address] Signed SPECIMEN(S): A APPENDIX SPECIMEN SOURCE: A. APPENDIX CLINICAL HISTORY: Ruptured/perforated appendicitis. FINAL PATHOLOGIC DIAGNOSIS: Appendix, appendectomy: - Acute appendicitis with perforation and periappendiceal abscess formation. - Hyperplastic polyp. NAL:[facility]:C2NR MICROSCOPIC EXAMINATION: Histologic sections of all submitted blocks are examined by light microscopy. These findings, together with the gross examination, support the pathologic diagnosis. GROSS DESCRIPTION: The specimen, labeled "GH, A.," and designated on the requisition "perforated appendix," is received in formalin and consists of Specimen: Appendix with mesoappendix. Dimensions: 5.7 x 1.5 x 2.4 cm. Serosa: Congested with plaque-like material. Perforation: Two possible perforations, measuring 1.0 cm from proximal margin, as well as one involving distal tip. Inking: Staple line is inked black. Mucosa: Thickened brito with narrow but penetrable lumen. Fecalith: Not grossly identified. Additional: None. Skein Inspector sections are submitted as follows: (A1) Uninvolved appendix and proximal margin (A2) First possible perforation (A3) Second possible perforation at distal tip AT (under the direct supervision of a pathologist) The Gross Description was prepared using a voice recognition system. The report was reviewed for accuracy; however, sound-alike word errors, addition and/or deletions may occur. If there is any question about this report, please contact Client Services. PATIENT NAME: JADYN SCHMITZ PATHOLOGY DATE OF : 69 REPORT #: [id number] PHYSICIAN: ESTELA BUSTAMANTE PCP: YONG PATEL DO REPORT IS CONFIDENTIAL AND NOT TO BE RELEASED WITHOUT AUTHORIZATION [facility] [address] [place] [id number] Signed PERFORMING LABORATORY: The technical component was performed [place] [address] (Combat Systems Operator: Coreen Thompson MD; CLIA# [id number]). Professional [facility], [address] [address] (CLIA# [id number]). Diagnostician: Kristen Tom MD Pathologist Electronically Signed 09/30/2019 Copies: ~ PATIENT NAME: JADYN SCHMITZ PATHOLOGY DATE OF : 69 REPORT #: [id number] PHYSICIAN: ESTELA BUSTAMANTE PCP: YONG PATEL DO REPORT IS CONFIDENTIAL AND NOT TO BE RELEASED WITHOUT AUTHORIZATION
--- NOTE | 2019-09-30 14:00 | NUR ---
Patient sitting up in chair at this time. Difficult for patient to remain awake. Opens eyes when spoken to, answers questions correctly. Tramadol and gabapentin held due to lethargy.
--- NOTE | 2019-09-30 14:57 | NUR ---
Dr. Arceo notified of patient drowsiness and held medications. States he will DC some medications.
--- NOTE | 2019-09-30 16:41 | NUR ---
Lying in bed. Wakes to verbalization. Remains oriented, but drowsy. Denies other needs at this time. Call light in reach. Bed rails up X2.
--- NOTE | 2019-09-30 17:28 | NUR ---
Wakes easier at this time. Takes scheduled medication without difficulty.
--- NOTE | 2019-09-30 17:41 | NUR ---
Very lethargic today. Medications changed by Dr. Arceo this afternoon. Medications held at scheduled times. MARLI drain total of 635 mL today. Incontinent of urine X1. Bed alarm on due to patient trying to get up on own and very unsteady gait noted.
--- NOTE | 2019-09-30 21:25 | NUR ---
Pt drowsy, awakes easily, denies c/o pain at this time, helped with repositoning in bed, hob elevated, on room air, declines to use CPAP. Lungs dim at bases. no cough, abd distended, firm, tender, nay, denies need for pain med, no bm, midline abd incisin withold drainage, old drainage at MARLI site, MARLI draining large amounts of ss drainage. IVF infusing w/o problems SL patent, Geoson, Gabapentin and Atarax held at nurses judgement due to pts drowsiness, Charge nurse aware, will notify MD. pt isntructed, stated ok "Sharla never been so sleepy, but Prieto ok, no need for pain med, but if I come more awake later I will ask for them" . Legs elevated. Tolerating sips of fluids, no emesis no n/v, call light at bedside, bed alarm on
--- NOTE | 2019-10-01 00:27 | NUR ---
resting, awakes easily, goes back to sleep. ivf infusing w/o problems. zonia w decreased ss drainage. abd distended, firm, tender. dressing with old drainage, gauze around zonia insertion site reinforced
--- NOTE | 2019-10-01 05:00 | NUR ---
Pt more awake, pleasant, alert and oriented, Up to br with sba/fww, voided, back to bed, c/o abd pain, medicated with Tylenol 1000mgpo, 1010 abd pain. call light and fluids at bedside, on room air
--- NOTE | 2019-10-01 05:15 | NUR ---
PT HAS BEEN DROWSY AND TIRED MOST OF THI SSHIFT, AWAKES EASILY, UP TO BR X2, VOIDING QS, 1PSBA/FWW, BACK TO BED. ON ROOM AIR, HAS NOT USED CPAP AT ALL THIS SHIFT, HOB ELEVATED, SATS 90-93%. NO DISTRESS. ABD SLIGHTLY DISTENDED VERY HYPOACTIVWE BOWEL TONES PRESENT, DENIES PASSING GAS, NO BM SINCE 09/23 MARLI DRAINED 175CC, MIDLINE OPTICOAT DRESSING COVERED WITH OPSITE IN PLACE. TOLERATING DIET WELL, NO C/O N/V. NEUROTIN,GABAPENTIN,ATARAX HELD EARLIER IN SHIFT PT WAS VERY DROWSY, PT AGREED TOO TO HOLD MEDS. MORE AWAKE, ALERT AND ORIENTED AT THIS TIME. USES CALL LIGHT APPROPRIATELY, BED ALARM IN PLACE
--- NOTE | 2019-10-01 05:23 | NUR ---
WARM BLANKET GIVEN ON REQUEST
--- NOTE | 2019-10-01 07:34 | NUR ---
0655: Report received from Cherelle TYLER. Pt resting in her bed with the alarm on and her call cooley within reach.
--- NOTE | 2019-10-01 08:32 | NUR ---
PATIENT AND I WALKED HALF WAY AROUND MED SURG. I ALSO HAVE HER SET UP FOR A SHOWER TODAY.
--- NOTE | 2019-10-01 08:33 | NUR ---
PATIENT IS SITTING UP IN HIS CHAIR.
--- NOTE | 2019-10-01 09:15 | NUR ---
Spoke with Rosario. She has been up to the bathroom and tolerated well. Discussed plan for dc and she states she has a friend staying in her home taking care of her pets. Friend will stay a few days with her. Gregory needs to go home has a 4ww and states that is all she needs to get around. Step father will also assist her.
--- NOTE | 2019-10-01 09:31 | NUR ---
PT RESTING IN HER CHAIR HAVING SOME JUICE AT THIS TIME, CALL BROWN WITHIN REACH. PT STATES HER PAIN IS A 9 BUT IS STATING THAT SHE WAS "OVER DOSED WITH PAIN MEDICATIONS YESTERDAY" AND SHE APPEARS DROWSY AT THIS TIME. WILL CONTINUE TO MONITOR. SEE ASSESSMENT.
--- NOTE | 2019-10-01 10:31 | NUR ---
Pt assisted to her bed per her reqeust. Pt states her abd pain is a 9.5/10 at this time. Medication pulled for the pt and she fell to sleep prior to taking the medication. Will continue to monitor.
--- NOTE | 2019-10-01 11:00 | NUR ---
PATEINT CALLED FOR ASSISTANCE TO BR. USED FWW. BACK TO BED, CALL LIGHT IN REACH
--- NOTE | 2019-10-01 11:19 | NUR ---
PT CONTINUES SLEEPING AT THIS TIME.
--- NOTE | 2019-10-01 11:58 | NUR ---
Pt awoke to voice, took her medication and declined to walk at this time. Pt quickly back to sleep.
--- NOTE | 2019-10-01 12:33 | NUR ---
Pt awoke to voice and got up to her chair and is now eating lunch. Call cooley within reach.
--- NOTE | 2019-10-01 13:44 | NUR ---
PT DROWSY BUT AWAKES TO VOICE AND AFTER MUCH ENCOURAGEMENT AGREES TO GO FOR A WALK. INCISION SITES ALL APPEAR HEALTHY AT THIS TIME. MARLI FUNCTIONING WELL, SEE I&O'S. SEE ASSESSMENT.
--- NOTE | 2019-10-01 15:14 | NUR ---
PT CALLED AND REQUESTED A BREATHING TREATMENT STATING SHE IS HAVING TROUBLE BREATHING DUE TO THE SHAMPOO SHE USED. SAT IS 95%, RR 20, LUNG SOUNDS DECREASED AND EXP WHEEZES NOTED ON THE RIGHT UPPER LOBE. RT NOTIFIED AND STATES HE IS ON HIS WAY NOW.
--- NOTE | 2019-10-01 15:35 | NUR ---
REPORT RECEIVED FROM NAYELI BASILIO. THIS RN ASSMING CARE OF PT.
--- NOTE | 2019-10-01 15:45 | NUR ---
ASSISTED PATIENT TO BR. AND THEN AMBULATED PORTILLO- ONCE AROUND NURSING STATION. HOT PACK AND WARM BLANKET GIVEN.
--- NOTE | 2019-10-01 16:46 | NUR ---
THIS RN TO ROOM TO CHECK ON PT. PT RESTING IN BED. PT AGREES TO GET UP TO CHAIR. STAND BY ASSIST AND FWW UP TO CHAIR. PT REPORTS FEELING COLD AND DIZZY. VITAL SIGNS TAKEN. PT NOTED TO HAVE LOWER BLOOD PRESSURE AND SLIGHTLY ELEVATED HEART RATE. WILL CONTINUE TO MONITOR. WARM BLANKETS PROVIDED. MEDICATIONS GIVEN. PT DENIES ADDITIONAL REQUESTS OR COMPLAINTS. ANTICIPATING DINNER. CALL LIGHT [employer]IN REACH.
--- NOTE | 2019-10-01 17:28 | NUR ---
PT HERE POST OP AFTER OPEN APPENDECOMY. FLACC SCORE USED FOR PAIN MANAGMEN THIS SHIFT. PT UP WITH STAND BY ASSIST AND FRONT WHEEL WALKER. PT ENCORUAGED TO AMBULATE AND SPEND TIME UP TO CHAIR. AMBULATION X3 THIS SHIFT. MIDLINE INCISION UNCHANGD WITH SMALL AMOUNT OF DRAINAGE. SMALL AMOUNT OF DRAINGE TAKEN FROM MARLI DRAIN. PT TOLERATING REGULAR DIET WITH MINIMAL APPTITIE. PT VOIDING QUANTITY SUFFICIENT. PT USES CALL LIGHT APPROPRIATLY.
--- NOTE | 2019-10-01 18:00 | NUR ---
THIS RN ASKS TRANSLATIONAL SPECIALIST TO REPEAT VITAL SIGNS RELATED TO LOW BLOOD PRESSURE AND SLIGHT TACHYCARDIA OF PREVIOUS VITAL SIGNS. TRANSLATIONAL SPECIALIST TO BEDSIDE. PT FINISHED WITH DINNER AND UP TO RESTROOM WITH TRANSLATIONAL SPECIALIST. PT VOIDS AND IS ASSITED BACK TO BED. TRANSLATIONAL SPECIALIST NOTES MONITOR IS READING HEART RATE IN THE 190'S. THIS RN CALLED TO BEDSIDE. APICAL PULSE TAKEN, HR 180'S -190'S APICALLY. MD CALLED AND UPDATED, ORDERS FOR CARDIAC MONITORING AND EKG. RESPIRATORY THERAPY TO BEDSIDE. PTS HEART RATE SLOWS TO 120'S. EKG COMPLETE, AND GIVEN TO MD. PT JUMPS BACK UP TO HEART RATE OF 180-190'S, TELE IN PLACE. MD TO BEDSIDE. THIS RN NOTES PT HAS NOT RECEIVED GLUCOCORTICOIDS TODAY. MD NOTIFIED. NEW ORDERS PLACED. MEDICATION GIVEN. PT CONTINUES TO FLUCUTATE BETWEEN EPISODES OF HEART RATE IN 120'S AND HEART RATE IN 180'S-190'S. ORDERS PLACED FOR PT TO BE TRANSFERED TO CCU. PT TRANSFERED. RT CALLED FOR 3RD EKG. DR. WOODALL CALLED BY THIS RN, NO ANSWER. DR. BOSWELL STATES SHE CALLED DR. WOODALL WITH UPDATE. REPORT GIVEN TO CEDRIC TYLER. ALL BELONGINGS TRANSFERED TO PTS ROOM. DR. WOODALL CALLED AGAIN AND UPDATED BY PHONE.
--- NOTE | 2019-10-01 18:45 | NUR ---
cardizem push given and gtt started per orderes. patients hr at the time of initial bolus was 210. patient is drowsy,but answeres questions appropraitely. will continue to closely monitor.
--- NOTE | 2019-10-01 19:03 | NUR ---
pt remains on diltiazem drip at 5 mg/hr. hr is currently 115. pt denies sob, nausea, and chest pain. pt reports abd surgical site pain 9.5/10, states "from dry heaving" "it's pretty intense". pt remains calm and oriented x4. pt able to follow directions and uses bed hernandez to void 225 ml dilute urine.
--- NOTE | 2019-10-01 19:15 | NUR ---
PT GIVEN 50 MG PO ULTRAM FOR 9.5/10 ABD PAIN. ABLE TO SWALLOW EASILY.
--- NOTE | 2019-10-01 19:45 | NUR ---
REPORT RECEIVED FROM DAY SHIFT RN. PT IN BED, ON BEDPAN AND READY TO GET OFF, WAS ABLE TO VOID 200ML CLEAR URINE. ASKED IF SHE IS HAVING ANY PAIN SHE STATES "JUST A LITTLE, THATS PRETTY MUCH MY NORMAL". DENIES NEEDS, INFORMED OF PLAN OF CARE FOR THE NIGHT INCLUDING CARDIZEM GTT, PT HAS NO QUESTIONS. CALL LIGHT IN REACH.
--- NOTE | 2019-10-01 20:20 | NUR ---
PT GIVEN TYLENOL 1000MG PRN BACK PAIN 11/03.
--- NOTE | 2019-10-01 20:49 | NUR ---
HR UP TO 180'S FROM 90'S, IN TO CHECK ON PT, PT C/O SLIGHT SOB, C/O CONTINUED BACK PAIN THAT SHE HAD BEEN HAVING PRIOR TO HR JUMPING UP. CALL TO DR BOSWELL, ORDER GIVEN FOR DILTIAZEM, 10MG IV CARDIZEM PUSH GIVEN ONCE. HR RESPONSIVE, QUICKLY BACK DOWN TO 90'S. DR BOSWELL IN TO SEE AND ASSESS PT.
--- NOTE | 2019-10-01 20:55 | NUR ---
PTS O2 SATS HAD DROPPED DOWN TO 90% WITH HR UP AND C/O SOB, O2/3L/NC PLACED AND SATS UP TO 96%.
--- NOTE | 2019-10-01 21:30 | NUR ---
PT HELPED TO REPOSITION IN BED FOR COMFORT. AFTERWARDS SHE ASKS IF ANYONE HAS CALLED HER DAUGHTER TO UPDATE HER, WHEN ASKED WHY SHE DOESNT CALL HER DAUGHTER HERSELF SHE STATES "BECAUSE IM TOO HIGH. I MEAN NOT TOO HIGH. TOO FUMBLY," LOOKING SLEEPY. BED ALARM ON, SIDE RAILS UP AND CALL LIGHT IN REACH. HR REMAINS IN THE 70-80'S AND CARDIZEM GTT INFUSING AT 5MG/HR.
--- NOTE | 2019-10-01 22:05 | NUR ---
MARLI DRAIN STRIPPED AND EMPTIED OF 10ML SEROSANG FLUID.
--- NOTE | 2019-10-02 00:08 | NUR ---
HR 60'S, CARDIZEM GTT TITRATED DOWN TO 2.5MG/HR.
--- NOTE | 2019-10-02 00:56 | NUR ---
PT CALLS TO USE BEDPAIN, VOIDED 300ML. NO REQUESTS AT THIS TIME. CARDIZEM GTT TURNED OFF AT THIS TIME, HR REMAINS 60'S.
--- NOTE | 2019-10-02 02:30 | NUR ---
PT CALLS TO USE BEDPAN, HAS BOWEL MOVEMENT, THEN CLEANED UP AND POSITIONED UP IN BED FOR COMFORT. DENIES FUTHER NEEDS AT THIS TIME. BED ALARM ON AND CALL LIGHT IN HAND.
--- NOTE | 2019-10-02 06:40 | NUR ---
UP TO BSC THEN UP TO SIT IN CHAIR WITH CALL LIGHT IN REACH. POTASSIUM RIDER STARTED INFUSING
--- NOTE | 2019-10-02 07:38 | NUR ---
REPORT RECEIVED FROM NAEYLI SOLANO. PT UP TO COMODE AND THEN UP TO CHAIR. O2 AT 97%, HR OF 79. NO ADDITIONAL REQUESTS OR COMPLAINTS. CALL LIGHT WITHIN REACH.
--- NOTE | 2019-10-02 10:18 | NUR ---
PT CALL LIGHT ON. [facility] PT VOIDS AND HAS SMALL LOOSE BOWEL MOVEMENT. PT REPORTS 9/10 PAIN, FLACC SCORE OF 3/10. PT REPORTS FEELING DROWSY AND WANTING TO GET GET BACK TO BED. 1 PERSON ASSIST BACK TO BED. MEDICATION GIVEN. NO ADDITIONAL REQUESTS OR COMPLAINTS. CALL LIGHT WICANDICEIN REACH.
--- NOTE | 2019-10-02 10:50 | NUR ---
PT CALL LIGHT ON. PT UP TO BEDSIDE COMODE. VOIDS WITHOUT ISSUE. SMALL LOOSE BOWEL MOVEMENT NOTED. PT BACK TO BED. PT REPORS FEELING "REALLY TIRED." STAND BY ASSIST BACK TO BED. BED RAILS UP. CALL LIGHT WITHIN REACH.
--- NOTE | 2019-10-02 12:00 | NUR ---
PATIENT UP TO COMMODE TO VOID. PATIENT IS MORE DROWSY NOW THAN EARLIER TODAY BUT STILL AWAKENS EASILY, FOLLOWS COMMANDS, STEADY ON FEET. HR IN THE 60-80s, SINUS. SP02 IS 94% ON ROOM AIR. PATIENT WANTING TO REST AT THIS TIME.
--- NOTE | 2019-10-02 12:12 | NUR ---
DR. WOODALL IN TO SEE PATIENT AT THIS TIME. PLAN TO HAVE PAIENT STAY IN HOSPITAL UNTIL TOMORROW OR FRIDAY, TO ENSURE HR REMAINS UNDER CONTROL. MARLI REMAINS IN PLACE WELL AND COULD POTENTIALLY BE D/C EARLY TOMORROW PER DR. WOODALL. CONTINUE TO MONITOR. PT REQUESTING HER CELL TO CALL HER FAMILY TO NOTIFY SHE IS STAYING ANOTHER NIGHT OR TWO.
--- NOTE | 2019-10-02 12:29 | NUR ---
PT CALL LIGHT ON. PT ASSISTED WITH ORDERING LUNCH. NO ADDITIONAL REQUESTS AT THIS TIME. CALL LIGHT WITHIN REACH. BED RAILS UP.
--- NOTE | 2019-10-02 12:36 | NUR ---
MEDICATION DUE. PT TALKING ON PHONE. MEDICATION GIVEN. VITALS TAKEN AND RECORDED. NO ADDITIONAL REQUESTS OR COMPLAINTS. CALL LIGHT FRIDA KRAUS.
--- NOTE | 2019-10-02 13:07 | EKG ---
[facility] [address] [place], [place] [address] Signed Sinus tachycardia with premature supraventricular complexes and with occasional premature ventricular complexes Cannot rule out Inferior infarct , age undetermined Abnormal ECG No previous ECGs available Confirmed by GATO BOSWELL MD ([id number]) on 10/02/2019 1:07:32 PM Electronically Signed By: GATO BOSWELL MD 10/02/19 1307 PATIENT NAME: JADYN SCHMITZ [place] Electrocardiogram DATE OF : 69 PHYSICIAN: GATO BOSWELL MD REPORT #: [id number] REPORT IS CONFIDENTIAL AND NOT TO BE RELEASED WITHOUT AUTHORIZATION
--- NOTE | 2019-10-02 13:26 | NUR ---
PT CALL LIGHT ON. PT REPORTS FEELING "LOOPY." PT FINISHED WITH LUNCH AND STATES SHE WANTS TO REST. NO ADDITIONAL REQUESTS OR COMPLAINTS. CALL LIGHT WITHIN REACH BED RAILS UP.
--- NOTE | 2019-10-02 15:05 | NUR ---
PATIENT HAD INCONTINENT STOOL IN HER ATTENDS. ASSISTED UP TO THE CAMMODE AND TOLERATED WELL. PATIENT BACK TO THE CHAIR AWAITING TO BE TRANSFERED. WILL CONTINUE TO CLOSELY MONITOR.
--- NOTE | 2019-10-02 15:07 | NUR ---
MEDICATION DUE. GIVEN ORDERED. REPORT CALLED BY NAYELI MARTINEZ TO MED/SURG FLOOR. PT TRANSFERED TO MED/SURG IN CHAIR BY THIS RN.
--- NOTE | 2019-10-02 15:15 | NUR ---
REPORT RECEIVED. PT ARRIVED TO FLOOR VIA CHAIR. FLUIDS INFUSING WNL. PT IS ALERT AND ORIENTED. REPORTS ABDOMINAL DISCOMFORT. ASSESSMENT COMPLETED. VITALS STABLE. ORIENTED TO ROOM. CALL LIGHT IN REACH.
--- NOTE | 2019-10-02 15:16 | NUR ---
REPORT GIVEN TO NAYELI WEISS ON MED/SURG. PATIENT TRANSFERRED OVER TO MED/SURG 120 IN CHAIR. PT ON TELE #8, SINUS RHYTHM. ALL BELONGINGS TAKEN WITH PATIENT. CPAP BEING MOVED PER RT.
--- NOTE | 2019-10-02 17:36 | NUR ---
VITALS AND I&OS CHARTED. PATIENT REQUESTS PAIN MED, WILL NOTIFY RN. NO OTHER NEEDS
--- NOTE | 2019-10-02 18:31 | NUR ---
IN TO ADMINSTER ABX. PT EPORTING ABDSOMINAL PAIN 11/03. ULTRAM GIVEN. NO FURTHER NEEDS.
--- NOTE | 2019-10-02 18:45 | NUR ---
PT REQUESTING BREATHING TREATMENT. RT CALLED.
--- NOTE | 2019-10-02 19:07 | NUR ---
PT RESTING IN BED, WATCHING TV. SHIFT REPORT RECEIVED FROM ABHISHEK TYLER. PAIN 08/03 IN ABD, DENIES NEED FOR FURTHER PAIN INTERVENTION. NO NEEDS AT THIS TIME. IV FLUIDS INFUSING PER ORDER. CALL LIGHT IN REACH.
--- NOTE | 2019-10-02 21:08 | NUR ---
VITALS DONE AND CHARTED. BEDSIDE TABLE AND CALL LIGHT IN REACH. EMPTIED HER MARLI . SHE WILL CALL WHEN SHE NEEDS TO GO TO THE BATHROOM, I WILL CHART AMOUNT AT THAT TIME. SHE NEEDS NOTHING AT THIS TIME.
--- NOTE | 2019-10-02 21:44 | NUR ---
STOOD BY SHE WENT INTO THE BATHROOM AND BACK TO BED. BEDSIDE TABLE AND CALL LIGHT IN REACH. PT NEEDS NOTHING MORE AT THIS TIME.
--- NOTE | 2019-10-02 22:12 | NUR ---
ASSESSMENT COMPLETED. SCHEDULED MEDS PROVIDED. PT DECLINES [place]. LUNGS CLEAR, BOWEL TONES ACTIVE. INCISIONS WNL, CDI. SHARRON DRAIN WNL, SS OUTPUT. IVs CDI, WNL, FLUSHED WELL. HR SR @60. PT A & O. GCS 15. ABD FIRM, TENDER, MODERATELY DISTENDED. NO OTHER NEEDS AT THIS TIME. CALL LIGHT IN REACH.
--- NOTE | 2019-10-03 00:13 | NUR ---
HELPED PT TO THE BATHROOM AND BACK TO BED. BEDSIDE TABLE AND CALL LIGHT IN REACH. PT NEEDS NOTHING MORE AT THIS TIME.
--- NOTE | 2019-10-03 02:17 | NUR ---
SCHEDULED MED PROVIDED. NO OTHER NEEDS AT THIS TIME. CALL LIGHT IN REACH.
--- NOTE | 2019-10-03 04:05 | NUR ---
PT RESTING IN BED, EYES CLOSED. RR EVEN, UNLABORED. HR SR @ 60. IV FLUIDS INFUSING PER ORDER. CALL LIGHT IN REACH.
--- NOTE | 2019-10-03 05:44 | NUR ---
PT CALLS TO USE BR. UP TO BR AND BACK TO BED, SBA. ASSESSMENT COMPLETED. LUNGS CLEAR. BOWEL TONES ACTIVE. INCISIONS CDI, WNL. SHARRON DRAIN HAS SCANT DRAINAGE, SS. VS AND I&O COMPLETED. IV WNL. ICE PROVIDED. PAIN 8/10 IN ABD, PRN PAIN MED PROVIDED. SCHEDULED MED PROVIDED. NO OTHER NEEDS. CALL LIGHT IN REACH.
--- NOTE | 2019-10-03 07:37 | NUR ---
REPROT RECEIVED. PT IN BED ALERT AND ORIENTED. DENEIS PAIN. CALL LIGHT IN REACH.
--- NOTE | 2019-10-03 07:43 | NUR ---
PATIENT SITTING UP IN BED. WHITE BOARD UPDATED. PATIENT WOULD LIKE TO AMBULATE IN THE HALLWAY AFTER BREAKFAST. CALL LIGHT WITHIN REACH. NO OTHER NEEDS AT THIS TIME
--- NOTE | 2019-10-03 08:30 | NUR ---
patient went on walk around the [place]. she walked 2 laps. used walker, only standby no further assistance needed.
--- NOTE | 2019-10-03 09:50 | NUR ---
ASSESSMENT COMPLETED. LUNGS CLEAR. BOWEL TONES ACTIVBE. HR STABLE AND REGULAR. ABDOMEN MILDLY DISTENDED. PASSING GAS AND BM. DRESSING INTACT. 20 ML OVER NIGHT IN MARLI DRAIN. PT DENEIS PAIN AT THIS TIME. PT AMBULATED 2 LAPS THIS MORNING. ATE 100% OF BREAKFAST.
--- NOTE | 2019-10-03 09:59 | NUR ---
PATIENT SITTING UP IN BED. VITAL SIGNS AND I&O DONE. PATIENT DID NOT VOID DURING THIS PERIOD. RN NOTIFIED. CALL LIGHT WITHIN REACH. NO OTHER NEEDS AT THIS TIME
--- NOTE | 2019-10-03 11:34 | NUR ---
PT ASSISTED TO BATHROOM. VOIDED 600ML OF CLEAR URINE. BACK TO BED. SALINE LOCKED. PT EATING AND DRINKING WELL.
--- NOTE | 2019-10-03 11:55 | NUR ---
MARLI EMPTIED FOR 10 MLS. PT DENEIS PAIN. DRESSING C/D/I.
--- NOTE | 2019-10-03 12:09 | NUR ---
AMBULATED 2 LAPS WITH PT. STAND BY WITH FWW.
--- NOTE | 2019-10-03 13:42 | NUR ---
PATIENT SITTING UP IN BED. VITAL SIGNS AND I&O DONE. CALL LIGHT WITHIN REACH. NO OTHER NEEDS AT THIS TIME
--- NOTE | 2019-10-03 16:13 | NUR ---
ROUNDED WITH DR WOODALL. POC DISCUSSED. MARLI DRAIN PULLED. PT TOELRATED WELL. PAIN REPSORTED AT 08/03. CALL LIGHT IN REACH. DENIES NEEDS.
--- NOTE | 2019-10-03 17:35 | NUR ---
PATIENT SITTING UP IN BED. VITAL SIGNS AND I&O DONE. CALL LIGHT WITHIN REACH. NO OTHER NEEDS AT THIS TIME
--- NOTE | 2019-10-03 18:00 | NUR ---
PT SITTING IN BED. DENIES PAIN. CALL LIGHT IN REACH.
--- NOTE | 2019-10-03 19:43 | NUR ---
SHIFT REPORT RECEIVED FROM NURSE ABHISHEK. PT IN BED. ALERT, ORIENTED, TALKATIVE. NO REQUESTS AT THIS TIME. CALL LIGHT WITHIN REACH.
--- NOTE | 2019-10-03 21:30 | NUR ---
ASSESSMENT COMPLETE. PT WAS SITTING UP IN BED AND TALKATIVE THROUGH MED ADMINISTRATION AND ASSESSMENT. PT RATES PAIN 6/10 IN INCISION BUT STATES THAT THIS IS TOLERABLE FOR HER WITH SCHEDULED MEDS SHE WILL NOW TAKE. INCISION CDI. PT REQUESTS TO AMBULATE HALLS; REQUEST WILL BE FULFILLED SOON POSSIBLE. NO FURTHER REQUESTS AT THIS TIME. CALL LIGHT WITHIN REACH.
--- NOTE | 2019-10-03 22:09 | NUR ---
WALKED AROUND MED SURG FLOOR WITH PT 4 TIMES PER HER REQUEST. SHE DID WELL. GOT HER BACK INTO HER ROOM AND IN BED . PT NEEDS NOTHING MORE AT THIS TIME.
--- NOTE | 2019-10-04 02:23 | NUR ---
pt reporting 10/10 abd pain, primary rn in another room. prn tylenol given per pt request, primary rn romario made aware. no further needs. call light in reach.
--- NOTE | 2019-10-04 05:48 | NUR ---
CALL LIGHT ANSWERED, pt UP TO CHAIR. REQUESTING PRN BREATHING TREATMENT, NO DISTRESS NOTED. RT NOTIFIED FOR ADMINISTRATION.
--- NOTE | 2019-10-04 06:17 | NUR ---
WALKED 3 TIMES AROUND MED SURG FLOOR PER PT REQUEST. SHE TOLLERATED IT VERY WELL. GOT HER BACK TO HER ROOM. SHE NEEDS NOTHING MORE AT THIS TIME.
--- NOTE | 2019-10-04 06:53 | NUR ---
PT HAD A GOOD NIGHT AND IS MOTIVATED TO GO HOME. PT DID REQUEST PRN PAIN MEDS 3 TIMES THIS SHIFT. PT IS INDEPENDENT TO TOILET AND EVEN DUMPS HAT AND RECORDS URINE OUTPUT. PT WAS MOTIVATED TO AMBULATE SEVERAL TIMES IN HALLWAY THIS SHIFT. VSS.
--- NOTE | 2019-10-04 06:55 | NUR ---
BEDSIDE HANDOFF REPORT RECEIVED FROM FORGING MACHINE OPERATOR RN. [facility] ANTICIPATING DC TODAY. PT DENIES NEEDS AT THIS TIME.
--- NOTE | 2019-10-04 08:15 | NUR ---
PATIENT SITTING UP IN CHAIR. PATIENT REFUSED TO TAKE A SHOWER TODAY BECAUSE SHE IS GOING TO BE DISCHARGE HOME AND PREFERS TO TAKE A SHOWER AT HOME. CALL LIGHT WITHIN REACH. NO OTHER NEEDS AT THIS TIME
[2019-10-04] MEDS ORDERED: METRONIDAZOLE250 MG PO (08:35)
[2019-10-04] MEDS ORDERED: ACETAMINOPHEN500 MG PO (08:35)
[2019-10-04] MEDS ORDERED: FAMOTIDINE20 MG PO (08:36)
[2019-10-04] MEDS ORDERED: PREDNISONE10 MG PO (08:37)
[2019-10-04] MEDS ORDERED: CIPROFLOXACIN500 MG PO (08:39)
--- NOTE | 2019-10-04 09:10 | NUR ---
PT SITTING IN CHAIR. PT RATING PAIN 4/10 AT THIS TIME. PT ON ROOM AIR, LUNG SOUNDS CLEAR, DENIES SOB. PT DENIES NAUSEA, BOWEL TONES ACTIVE, TOLERATING REGULAR DIET. CMS INTACT, WITHOUT EDEMA. MIDLINE ABD INCISION WITH STERISTRIPS IN PLACE, WITHOUT DRAINAGE. IV SALINE LOCKED. PT DENIES OTHER NEEDS AT THIS TIME, ANTICIPATING DC.
--- NOTE | 2019-10-04 09:40 | NUR ---
DISCHARGE INSTRUCTIONS REVIEWED WITH PT, MEDICATIONS REVIEWED. IV CATH REMOVED X2.
--- NOTE | 2019-10-05 07:48 | DS ---
[facility] [address] [place], [place] [address] Signed ADMISSION DATE: 09/27/2019 DISCHARGE DATE: 10/04/2019 REASON FOR ADMISSION: This 54-year-old white woman has numerous medical problems. She has episodic recurrent chronic diverticulitis over several episodes including hospitalizations and recommended hospitalizations which she had declined several weeks ago. On Friday (date of admission Friday), she began having right lower abdominal pain and called me at home regarding this. She thought she was having recurrent diverticulitis. She inquired whether she should go to the emergency room and I thought she should as appendicitis might be possible. She noted that her diverticulitis episodes always began in the right lower quadrant; on that basis preferred outpatient management with outpatient followup. She was prescribed Cipro and Flagyl antibiotics, which she had begun. She then presented to the emergency room on the day of admission September 28, 2019, with persisting right lower abdominal pain. She was evaluated in the emergency room with a CT scan, which confirmed acute appendicitis with probable perforation. She is admitted for further evaluation and care. PERTINENT PHYSICAL EXAMINATION: GENERAL: Shows an elderly white woman with some amount of frailty. CHEST: Clear. HEART: Regular without murmur. ABDOMEN: Somewhat distended and markedly tender in the right lower quadrant. EXTREMITIES: Show no clubbing, cyanosis, or edema. LABORATORY STUDIES: Showed a white count of 19.3, hematocrit 44.7, and platelets 258,000. Chem profile is normal. Glucose 122. Of special note, the patient does have underlying adrenal insufficiency for which she takes prednisone 10 mg p.o. daily. HOSPITAL COURSE: She was admitted and given aggressive fluid resuscitation and stress dose steroids, hydrocortisone 100 mg IV q.8 hours. Broad-spectrum antibiotic Zosyn was initiated as well. On September 28, 2019, in the morning, she underwent laparoscopy plans for laparoscopic appendectomy. She was found to have an abscess in the right lower quadrant with a well-formed rind. This was drained laparoscopically and Gram stain and cultures obtained. The perforated appendix was very densely adherent to the retroperitoneum and on that basis, conversion to open operation by extending the infraumbilical incision a Electronically Signed By: REKHA WOODALL MD 10/05/19 0748 PATIENT NAME: JADYN SCHMITZ DISCHARGE SUMMARY DATE OF : 69 REPORT #: [id number] PHYSICIAN: REKHA WOODALL MD PCP: YONG PATEL DO REPORT IS CONFIDENTIAL AND NOT TO BE RELEASED WITHOUT AUTHORIZATION [facility] [address] [place], [place] [address] Signed few centimeters was undertaken. This allowed for good mobility of the very redundant cecum and debridement of the abscess cavity and appendectomy. A drain was placed as well. Postoperatively, she was maintained with a broad-spectrum antibiotic Zosyn. It is noted that operation was planned for the night of admission, however, she did develop a fair amount of wheezing, which required bronchodilator therapy and consultation with the hospitalist, Dr. Trejo. Her operation went without problems from a cardiopulmonary standpoint. She was maintained with broad-spectrum antibiotics, but had a fair amount of discomfort despite multiple different medications available for pain. She was maintained on stress dose steroids and tapered down on those as well. Gram stain and cultures of the abscess fluid were never demonstrative of a pathogen, likely related to broad-spectrum antibiotic Zosyn that had been administered at the outset of presentation. She was transitioned to Cipro and Flagyl antibiotics while in the hospital. She had an episode of PSVT requiring transfer back to the Intensive Care Unit for monitoring. Steroids and diltiazem were administered, which allowed for resolution of the problem. She was once again returned to the regular nursing floor on Telemetry, where she had no further episodes of that. By the time of discharge, she is ambulating well, tolerating a regular diet, has had the drain removed and doing well. DISCHARGE MEDICATIONS: Include : 1. Cipro 500 mg p.o. b.i.d., #10. 2. Flagyl 250 mg p.o. t.i.d., #15. 3. Tylenol 500 mg two tablets p.o. q.6 hours as needed for pain, #30. 4. Famotidine 20 mg p.o. q.12 hours, #60. 5. Prednisone 10 mg p.o. daily, #30 (chronically used). She will continue with prednisone on ongoing basis for hormone for a steroid replacement therapy. 6. We will continue sumatriptan 100 mg p.o. as needed for migraine, albuterol ventilator two puffs q.4 hours as needed. 7. Hydroxyzine 25 mg p.o. at bedtime. 8. Oxybutynin 5 mg p.o. at bedtime for bladder control. 9. Potassium chloride 20 mEq p.o. daily. 10. Gabapentin 100 mg p.o. t.i.d. 11. Synthroid 75 mcg p.o. daily. 12. Fluticasone two sprays nasally each day. 13. Ziprasidone 80 mg p.o. b.i.d. with meals. Electronically Signed By: REKHA WOODALL MD 10/05/19 0748 PATIENT NAME: JADYN SCHMITZ DISCHARGE SUMMARY DATE OF : [birth year] REPORT #: [id number] PHYSICIAN: REKHA WOODALL MD PCP: YONG PATEL DO REPORT IS CONFIDENTIAL AND NOT TO BE RELEASED WITHOUT AUTHORIZATION [facility] [address] [place] [id number] Signed 14. Tramadol 50 mg p.o. q.i.d. as needed for pain. 15. Ferrous sulfate 325 mg p.o. daily two days. 16. Montelukast 10 mg tablet p.o. daily. 17. Clonazepam 2 mg at bedtime as needed. She will discontinue pantoprazole as she is not taking Pepcid. DISCHARGE DIAGNOSES: 1. Right lower abdominal abscess related to perforated appendicitis, status post laparoscopic abscess drainage and open appendectomy. 2. Adrenal insufficiency, requiring prednisone therapy 10 mg daily. 3. Asthma. 4. Migraine headaches. 5. Anxiety. 6. Hypothyroidism. 7. Chronic pain. FOLLOWUP PLANS: She is return to see me in approximately 4 weeks following discharge. She will call for problems. She should lift no more than 20 pounds for the next 4 weeks and is permitted to shower at any time. MD INNA Rubio/MAXX /[id number] cc: DO Marysol Guillaume MD Dr. MARSH Sheldon Wendler, MD Electronically Signed By: REKHA WOODALL MD 10/05/19 0748 PATIENT NAME: JADYN SCHMITZ DISCHARGE SUMMARY DATE OF : 69 REPORT #: [id number] PHYSICIAN: REKHA WOODALL MD PCP: YONG PATEL DO REPORT IS CONFIDENTIAL AND NOT TO BE RELEASED WITHOUT AUTHORIZATION [address] [address] Signed Copies: YONG PATEL CYNTHIA MD WENDLER, SHELDON MD ~ Electronically Signed By: REKHA WOODALL MD 10/05/19 0748 PATIENT NAME: JADYN SCHMITZ DISCHARGE SUMMARY DATE OF : 69 REPORT #: [id number] PHYSICIAN: REKHA WOODALL MD PCP: YONG PATEL DO REPORT IS CONFIDENTIAL AND NOT TO BE RELEASED WITHOUT AUTHORIZATION
== END 2019-10-04 10:27 | disposition home or self-care (01) | DRG 339 ==
LOC: ED 15:45 → CCU 21:25 → MS 21:25 → CCU 23:20 → MS 09-29 16:29 → CCU 10-01 18:35 → MS 10-02 15:15
PROVIDERS: ADMIT Surgery
PROC: 0W9F0ZZ Drainage of Abdominal Wall, Open Approach (ICD-10-PCS; 2019-09-28)
PROC: 0DTJ0ZZ Resection of Appendix, Open Approach (ICD-10-PCS; principal; 2019-09-28 08:15)
PROC: 0WJG4ZZ Inspection of Peritoneal Cavity, Percutaneous Endoscopic Approach (ICD-10-PCS; 2019-09-28 08:15)
DX: K35.33 Acute appendicitis with perforation, localized peritonitis, and gangrene, with abscess (principal); E27.40 Unspecified adrenocortical insufficiency; J45.909 Unspecified asthma, uncomplicated; G43.909 Migraine, unspecified, not intractable, without status migrainosus; F41.9 Anxiety disorder, unspecified; E03.9 Hypothyroidism, unspecified; G89.29 Other chronic pain; J44.9 Chronic obstructive pulmonary disease, unspecified; E11.9 Type 2 diabetes mellitus without complications; F31.9 Bipolar disorder, unspecified
CPT/HCPCS: 00840; 36415; 51702; 71045; 74177; 80053; 81001; 83605; 83690; 83735; 84484; 85025; 87070; 87077; 87186; 87205; 88304; 93005; 93010; 94640; 94660; 94760; 96375; 99285-25; 99406; C9803; J0131; J0330; J1100; J1644; J1720; J2001; J2270; J2405; J2543; J2704; J3010; J3475; J3480; J7030; J7060; J7121; J7512; Q9967

== ENCOUNTER 2020-05-27 20:14 | Inpatient (IN) | payer MEDICARE, MEDICAID ==
[~2020-05-27] VITALS: Ht 154.9 cm; Wt 57.9 kg
[~2020-05-27 20:14] MED LIST changes: +ACETAMINOPHEN500 MG PO; +CIPROFLOXACIN500 MG PO; +CLONAZEPAM2 MG PO; +ESZOPICLONE3 MG PO; +FAMOTIDINE20 MG PO; +METRONIDAZOLE500 MG PO; +MONTELUKAST SOD10 MG PO
[2020-05-27] MEDS ORDERED: URINARY PAIN97.5 MG PO (21:04)
[2020-05-27] MEDS ORDERED: AZO STANDARD95 MG PO (21:05)
[2020-05-27] MEDS ORDERED: OXYCODONE HCL5 MG PO (21:06)
[2020-05-28] MEDS ORDERED: PANTOPRAZOLE SO40 MG PO (09:15)
[2020-05-28] MEDS ORDERED: PERCOCET 5-3251 EACH PO (09:15)
--- NOTE | 2020-05-28 13:49 | EKG ---
[facility] [address] [facility] [place], [place] [address] Signed Sinus tachycardia Otherwise normal ECG No previous ECGs available Confirmed by LEELA COREA DO ([id number]) on 05/28/2020 1:49:36 PM Electronically Signed By: LEELA COREA DO 05/28/20 1349 PATIENT NAME: JADYN SCHMITZ Electrocardiogram DATE OF : 69 PHYSICIAN: LEELA COREA DO REPORT #: [id number] REPORT IS CONFIDENTIAL AND NOT TO BE RELEASED WITHOUT AUTHORIZATION
[2020-06-01] MEDS ORDERED: LEVOFLOXACIN750 MG PO (09:44)
[2020-06-01] MEDS ORDERED: GABAPENTIN300 MG PO (09:45)
[2020-06-01] MEDS ORDERED: PREDNISONE20 MG PO (09:47)
== END 2020-06-01 14:25 | disposition home or self-care (01) | DRG 202 ==
LOC: ED 20:14 → MS 20:15
PROVIDERS: ADMIT Student in an Organized Health Care Education/Training Program; ATTEND Student in an Organized Health Care Education/Training Program
PROC: 5A09357 Assistance with Respiratory Ventilation, Less than 24 Consecutive Hours, Continuous Positive Airway Pressure (ICD-10-PCS; principal; 2020-05-29)
DX: J40 Bronchitis, not specified as acute or chronic (principal); J44.1 Chronic obstructive pulmonary disease with (acute) exacerbation; E27.40 Unspecified adrenocortical insufficiency; J44.0 Chronic obstructive pulmonary disease with (acute) lower respiratory infection; B96.1 Klebsiella pneumoniae [K. pneumoniae] as the cause of diseases classified elsewhere; Z20.822 Contact with and (suspected) exposure to COVID-19; E09.9 Drug or chemical induced diabetes mellitus without complications; T38.0X5A Adverse effect of glucocorticoids and synthetic analogues, initial encounter; M79.7 Fibromyalgia; K21.9 Gastro-esophageal reflux disease without esophagitis; E03.9 Hypothyroidism, unspecified; F39 Unspecified mood [affective] disorder; Z88.8 Allergy status to other drugs, medicaments and biological substances; Z88.1 Allergy status to other antibiotic agents; Z79.899 Other long term (current) drug therapy; Z79.84 Long term (current) use of oral hypoglycemic drugs; Z79.891 Long term (current) use of opiate analgesic; Z79.51 Long term (current) use of inhaled steroids; Z79.52 Long term (current) use of systemic steroids
CPT/HCPCS: 36415; 71045; 80048; 80053; 83735; 83880; 84484; 85025; 87070; 87077; 87186; 87205; 93005; 93010; 94640; 94644; 94660; 94760; 94761; 96365; 99285-25; C9803; J1650; J1815; J2930; J3475; J7121; J7512; Q0177; U0003

== ENCOUNTER 2020-06-30 04:56 | Emergency (ER) | payer MEDICARE, MEDICAID ==
[~2020-06-30] VITALS: Ht 154.9 cm; Wt 59.0 kg
[~2020-06-30 04:56] MED LIST changes: +AZO STANDARD95 MG PO; +GABAPENTIN300 MG PO; +LEVOFLOXACIN750 MG PO; +OXYCODONE HCL5 MG PO; +PERCOCET 5-3251 EACH PO; +PREDNISONE20 MG PO; +URINARY PAIN97.5 MG PO
[2020-06-30] MEDS ORDERED: CIPRO500 MG PO (06:11)
[2020-06-30] MEDS ORDERED: ULTRAM50 MG PO (06:11)
[2020-06-30] MEDS ORDERED: FLAGYL500 MG PO (06:11)
== END 2020-06-30 06:24 | disposition home or self-care (01) ==
LOC: ED 04:56
DX: K57.92 Diverticulitis of intestine, part unspecified, without perforation or abscess without bleeding (principal); M19.90 Unspecified osteoarthritis, unspecified site; J43.9 Emphysema, unspecified; Z87.891 Personal history of nicotine dependence; Z88.6 Allergy status to analgesic agent; Z88.1 Allergy status to other antibiotic agents; Z91.018 Allergy to other foods; Z79.899 Other long term (current) drug therapy; Z79.52 Long term (current) use of systemic steroids; Z79.84 Long term (current) use of oral hypoglycemic drugs
CPT/HCPCS: 80053; 81001; 83690; 85025; 99284; J7030

== ENCOUNTER 2020-10-01 18:33 | Emergency (ER) | payer MEDICARE, MEDICAID ==
[~2020-10-01] VITALS: Ht 154.9 cm; Wt 59.9 kg
[~2020-10-01 18:33] MED LIST changes: +CIPRO500 MG PO; +FLAGYL500 MG PO
--- OUTSIDE RECORDS SUMMARY | 2020-10-01 18:36 | XMS ---
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 [place] VISIT COUNT (12 MO.) 3 JANELLE Winkler TOTAL 3 NOTE: Visits indicate total known visits. ED/UCC VISIT TRACKING (12 MO.) 10/01/2020 18:33 [facility]ELLE Espino[facility] TYPE: Emergency COMPLAINT: - PAIN WITH URINATION 06/30/2020 04:56 [facility] TYPE: Emergency COMPLAINT: - ABDOMINAL PAIN,CONSTIPATION DIAGNOSES: - Diverticulitis of intestine, part unspecified, without perforation or abscess without bleeding - Emphysema, unspecified - Left lower quadrant pain - Other intermediate frame tender (current) drug therapy - Allergy status to other antibiotic agents - Allergy status to analgesic agent - senior care (current) use of oral hypoglycemic drugs - Unspecified osteoarthritis, unspecified site - Allergy to other foods - senior care (current) use of systemic steroids - Personal history of nicotine dependence 05/27/2020 20:14 [facility] TYPE: Emergency COMPLAINT: - DIFFICULTY BREATHING INPATIENT VISIT TRACKING (12 MO.) 05/29/2020 13:09 [facility]AN[facility] TYPE: Medical Surgical COMPLAINT: - COPD EXACERBATION DIAGNOSES: - lobsterman (current) use of oral hypoglycemic drugs - Fibromyalgia - Hypothyroidism, unspecified - Other intermediate frame tender (current) drug therapy - Gastro-esophageal reflux disease without esophagitis - Chronic obstructive pulmonary disease with (acute) lower respiratory infection - Chronic obstructive pulmonary disease with (acute) exacerbation - Adverse effect of glucocorticoids and synthetic analogues, initial encounter - Unspecified adrenocortical insufficiency - lobsterman (current) use of systemic steroids - Unspecified mood [affective] disorder - Allergy status to other antibiotic agents - lobsterman (current) use of opiate analgesic - Allergy status to other drugs, medicaments and biological substances - Bronchitis, not specified as acute or chronic - 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 pneumoniae] as the cause of diseases classified elsewhere - lobsterman (current) use of inhaled steroids [email or web address]
[2020-10-01] MEDS ORDERED: ESTRADIOL0.5 MG PO (18:50)
[2020-10-01] MEDS ORDERED: PREDNISONE5 MG PO (18:50)
[2020-10-01] MEDS ORDERED: AMPHETAMINE SAL10 MG PO (18:51)
[2020-10-01] MEDS ORDERED: ULTRAM50 MG PO (21:41)
[2020-10-01] MEDS ORDERED: CEPHALEXIN500 MG PO (21:41)
== END 2020-10-01 22:00 | disposition home or self-care (01) ==
LOC: ED 18:33
DX: N39.0 Urinary tract infection, site not specified (principal); J43.9 Emphysema, unspecified; Z87.891 Personal history of nicotine dependence; Z88.8 Allergy status to other drugs, medicaments and biological substances; Z88.1 Allergy status to other antibiotic agents; Z91.018 Allergy to other foods; Z88.6 Allergy status to analgesic agent; Z79.899 Other long term (current) drug therapy; Z79.52 Long term (current) use of systemic steroids; Z79.84 Long term (current) use of oral hypoglycemic drugs
CPT/HCPCS: 80053; 81001; 85025; 87088; 96374; 99283-25; J0696; J7030

== ENCOUNTER 2020-12-03 12:03 | Emergency (ER) | payer MEDICARE, MEDICAID ==
[~2020-12-03] VITALS: Ht 154.9 cm; Wt 59.9 kg
[~2020-12-03 12:03] MED LIST changes: +AMPHETAMINE SAL10 MG PO; +CEPHALEXIN500 MG PO; +ESTRADIOL0.5 MG PO; +PREDNISONE5 MG PO
--- OUTSIDE RECORDS SUMMARY | 2020-12-03 12:06 | XMS ---
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 Destinee VISIT COUNT (12 MO.) 4 JANELLE Winkler TOTAL 4 NOTE: Visits indicate total known visits. ED/UCC VISIT TRACKING (12 MO.) 12/03/2020 12:03 [facility] TYPE: Emergency COMPLAINT: - SOB 10/01/2020 18:33 [facility] TYPE: Emergency COMPLAINT: - PAIN WITH URINATION DIAGNOSES: - Personal history of nicotine dependence - Allergy status to other drugs, medicaments and biological substances - Urinary tract infection, site not specified - Allergy to other foods - Other termite control service representative (current) drug therapy - skilled nursing (current) use of systemic steroids - Allergy status to other antibiotic agents - Dysuria - skilled nursing (current) use of oral hypoglycemic drugs - Emphysema, unspecified - Allergy status to analgesic agent 06/30/2020 04:56 [facility] TYPE: Emergency COMPLAINT: - ABDOMINAL PAIN,CONSTIPATION DIAGNOSES: - Diverticulitis of intestine, part unspecified, without perforation or abscess without bleeding - Emphysema, unspecified - Left lower quadrant pain - Other prison (current) drug therapy - Allergy status to other antibiotic agents - Allergy status to analgesic agent - terminal carman (current) use of oral hypoglycemic drugs - Unspecified osteoarthritis, unspecified site - Allergy to other foods - skilled nursing (current) use of systemic steroids - Personal history of nicotine dependence 05/27/2020 20:14 [facility] OR TYPE: Emergency COMPLAINT: - DIFFICULTY BREATHING INPATIENT VISIT TRACKING (12 MO.) 05/29/2020 13:09 JANELLE Espinoza OR TYPE: Medical Surgical COMPLAINT: - COPD EXACERBATION DIAGNOSES: - skilled nursing (current) use of oral hypoglycemic drugs - Fibromyalgia - Hypothyroidism, unspecified - Other termite control service representative (current) drug therapy - Gastro-esophageal reflux disease without esophagitis - Chronic obstructive pulmonary disease with (acute) lower respiratory infection - Chronic obstructive pulmonary disease with (acute) exacerbation - Adverse effect of glucocorticoids and synthetic analogues, initial encounter - Unspecified adrenocortical insufficiency - skilled nursing (current) use of systemic steroids - Unspecified mood [affective] disorder - Allergy status to other antibiotic agents - terminal carman (current) use of opiate analgesic - Allergy status to other drugs, medicaments and biological substances - Bronchitis, not specified as acute or chronic - 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 pneumoniae] as the cause of diseases classified elsewhere - skilled nursing (current) use of inhaled steroids [email or web address]
[2020-12-03] MEDS ORDERED: PREDNISONE20 MG PO (14:03)
[2020-12-03] MEDS ORDERED: PREDNISONE10 MG PO (14:04)
== END 2020-12-03 14:07 | disposition home or self-care (01) ==
LOC: ED 12:03
DX: J44.1 Chronic obstructive pulmonary disease with (acute) exacerbation (principal); M79.10 Myalgia, unspecified site; M19.90 Unspecified osteoarthritis, unspecified site; E27.40 Unspecified adrenocortical insufficiency; G47.9 Sleep disorder, unspecified; Z20.822 Contact with and (suspected) exposure to COVID-19; Z88.6 Allergy status to analgesic agent; Z91.018 Allergy to other foods; Z88.1 Allergy status to other antibiotic agents; Z79.52 Long term (current) use of systemic steroids; Z79.899 Other long term (current) drug therapy; Z79.84 Long term (current) use of oral hypoglycemic drugs
CPT/HCPCS: 99284; J7512; U0003

== ENCOUNTER 2020-12-21 13:50 | Emergency (ER) | payer MEDICARE, MEDICAID ==
[~2020-12-21] VITALS: Ht 154.9 cm; Wt 59.9 kg
--- OUTSIDE RECORDS SUMMARY | 2020-12-21 13:56 | XMS ---
PreManage Notification: JADYN SCHMITZ Security Director Of Perioperative Services Events No recent Security Events currently on file CRITERIA MET - [facility] - [facility] in [facility] Days [facility] Medicine: Adult Medicine 03/01/2019-Current PHONE: [phone] Delfina has no Care Guidelines for this patient. Destinee VISIT COUNT (12 MO.) [address] [place] [address] TOTAL 5 NOTE: Visits indicate total known visits. ED/UCC VISIT TRACKING (12 MO.) 12/21/2020 13:51 [facility]ANELLE Espinoza OR TYPE: Emergency COMPLAINT: - DIFFICULTY BREATHING 12/03/2020 12:03 JAN[facility] Espinoza OR TYPE: Emergency COMPLAINT: - SOB DIAGNOSES: - Allergy status to analgesic agent - Sleep disorder, unspecified - COUGH, UNSPECIFIED - long term (current) use of systemic steroids - Allergy status to other antibiotic agents - Unspecified adrenocortical insufficiency - Unspecified osteoarthritis, unspecified site - Other long-term (current) drug therapy - residential (current) use of oral hypoglycemic drugs - Chronic obstructive pulmonary disease with (acute) exacerbation - Allergy to other foods - Myalgia, unspecified site 10/01/2020 18:33 JANELLE Espinoza OR TYPE: Emergency COMPLAINT: - PAIN WITH URINATION DIAGNOSES: - Personal history of nicotine dependence - Allergy status to other drugs, medicaments and biological substances - Urinary tract infection, site not specified - Allergy to other foods - Other termite exterminator (current) drug therapy - residential (current) use of systemic steroids - Allergy status to other antibiotic agents - Dysuria - residential (current) use of oral hypoglycemic drugs - Emphysema, unspecified - Allergy status to analgesic agent 06/30/2020 04:56 [facility]ANELLE Espinoza OR TYPE: Emergency COMPLAINT: - ABDOMINAL PAIN,CONSTIPATION DIAGNOSES: - Diverticulitis of intestine, part unspecified, without perforation or abscess without bleeding - Emphysema, unspecified - Left lower quadrant pain - Other termite exterminator (current) drug therapy - Allergy status to other antibiotic agents - Allergy status to analgesic agent - residential (current) use of oral hypoglycemic drugs - Unspecified osteoarthritis, unspecified site - Allergy to other foods - residential (current) use of systemic steroids - Personal history of nicotine dependence 05/27/2020 20:14 JANELLE Espinoza OR TYPE: Emergency COMPLAINT: - DIFFICULTY BREATHING INPATIENT VISIT TRACKING (12 MO.) 05/29/2020 13:[address] [facility] OR TYPE: Medical Surgical COMPLAINT: - COPD EXACERBATION DIAGNOSES: - residential (current) use of oral hypoglycemic drugs - Fibromyalgia - Hypothyroidism, unspecified - Other long-term (current) drug therapy - Gastro-esophageal reflux disease without esophagitis - Chronic obstructive pulmonary disease with (acute) lower respiratory infection - Chronic obstructive pulmonary disease with (acute) exacerbation - Adverse effect of glucocorticoids and synthetic analogues, initial encounter - Unspecified adrenocortical insufficiency - residential (current) use of systemic steroids - Unspecified mood [affective] disorder - Allergy status to other antibiotic agents - residential (current) use of opiate analgesic - Allergy status to other drugs, medicaments and biological substances - Bronchitis, not specified as acute or chronic - 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 pneumoniae] as the cause of diseases classified elsewhere - residential (current) use of inhaled steroids [email or web address]
[2020-12-21] MEDS ORDERED: PREDNISONE20 MG PO (16:19)
== END 2020-12-21 16:27 | disposition home or self-care (01) ==
LOC: ED 13:50
DX: J44.1 Chronic obstructive pulmonary disease with (acute) exacerbation (principal); Z87.891 Personal history of nicotine dependence; Z88.6 Allergy status to analgesic agent; Z88.8 Allergy status to other drugs, medicaments and biological substances; Z91.018 Allergy to other foods; Z88.1 Allergy status to other antibiotic agents; Z79.899 Other long term (current) drug therapy; Z79.52 Long term (current) use of systemic steroids; Z79.84 Long term (current) use of oral hypoglycemic drugs
CPT/HCPCS: 71045; 94640; 99284-25; J7512

== ENCOUNTER 2021-03-07 07:56 | Emergency (ER) | payer MEDICARE, MEDICAID ==
[~2021-03-07] VITALS: Ht 154.9 cm; Wt 61.7 kg
--- OUTSIDE RECORDS SUMMARY | 2021-03-07 07:58 | XMS ---
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 Destinee VISIT COUNT (12 MO.) 6 JANELLE Winkler TOTAL 6 NOTE: Visits indicate total known visits. ED/UCC VISIT TRACKING (12 MO.) 03/07/2021 07:56 [facility] Espinoza OR TYPE: Emergency COMPLAINT: - ABDOMINAL PAIN, DISCOMFORT 12/21/2020 13:51 JANELLE Espinoza OR TYPE: Emergency COMPLAINT: - DIFFICULTY BREATHING DIAGNOSES: - [facility] (current) use of oral hypoglycemic drugs - Chronic obstructive pulmonary disease with (acute) exacerbation - Allergy to other foods - Allergy status to other antibiotic agents - Personal history of nicotine dependence - Other usp (current) drug therapy - Allergy status to other drugs, medicaments and biological substances - long term (current) use of systemic steroids - Shortness of breath - Allergy status to analgesic agent 12/03/2020 12:03 JANELLE Espinoza OR TYPE: Emergency COMPLAINT: - SOB DIAGNOSES: - Allergy status to analgesic agent - Sleep disorder, unspecified - COUGH, UNSPECIFIED - [facility] (current) use of systemic steroids - Allergy status to other antibiotic agents - Unspecified adrenocortical insufficiency - Unspecified osteoarthritis, unspecified site - Other usp (current) drug therapy - long term (current) use of oral hypoglycemic drugs - [...] - Allergy to other foods - Other usp (current) drug therapy - [facility] (current) use of systemic steroids - Allergy status to other antibiotic agents - Dysuria - long term (current) use of oral hypoglycemic drugs - Emphysema, unspecified - Allergy status to analgesic agent 06/30/2020 04:56 JANELLE Esipnoza OR TYPE: Emergency COMPLAINT: - ABDOMINAL PAIN,CONSTIPATION DIAGNOSES: - Diverticulitis of intestine, part unspecified, without perforation or abscess without bleeding - Emphysema, unspecified - Left lower quadrant pain - Other termite helper (current) drug therapy - Allergy status to other antibiotic agents - Allergy status to analgesic agent - [facility] (current) use of oral hypoglycemic drugs - Unspecified osteoarthritis, unspecified site - Allergy to other foods - long term (current) use of systemic steroids - Personal history of nicotine dependence 05/27/2020 20:14 [facility] Esp[facility]za OR TYPE: Emergency COMPLAINT: - DIFFICULTY BREATHING INPATIENT VISIT TRACKING (12 MO.) 05/29/2020 13:09 JAN[facility] Espinoza OR TYPE: Medical Surgical COMPLAINT: - COPD EXACERBATION DIAGNOSES: - [facility] (current) use of oral hypoglycemic drugs - Fibromyalgia - Hypothyroidism, unspecified - Other usp (current) drug therapy - Gastro-esophageal reflux disease without esophagitis - Chronic obstructive pulmonary disease with (acute) lower respiratory infection - Chronic obstructive pulmonary disease with (acute) exacerbation - Adverse effect of glucocorticoids and synthetic analogues, initial encounter - Unspecified adrenocortical insufficiency - long term (current) use of systemic steroids - Unspecified mood [affective] disorder - Allergy status to other antibiotic agents - [facility] (current) use of opiate analgesic - Allergy status to other drugs, medicaments and biological substances - Bronchitis, not specified as acute or chronic - 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 pneumoniae] as the cause of diseases classified elsewhere - long term (current) use of inhaled steroids [email or web address]
[2021-03-07] MEDS ORDERED: ZIPRASIDONE HCL80 MG PO (08:19)
[2021-03-07] MEDS ORDERED: TRAMADOL HCL50 MG PO (08:19)
[2021-03-07] MEDS ORDERED: METRONIDAZOLE500 MG PO (10:38)
[2021-03-07] MEDS ORDERED: AUGMENTIN 875-1 EACH PO (10:38)
[2021-03-07] MEDS ORDERED: DILAUDID2 MG PO (10:38)
[2021-03-07] MEDS ORDERED: ONDANSETRON ODT8 MG PO (10:38)
== END 2021-03-07 10:47 | disposition home or self-care (01) ==
LOC: ED 07:56
DX: K57.32 Diverticulitis of large intestine without perforation or abscess without bleeding (principal); M19.90 Unspecified osteoarthritis, unspecified site; J43.9 Emphysema, unspecified; M79.7 Fibromyalgia; Z87.891 Personal history of nicotine dependence; Z88.6 Allergy status to analgesic agent; Z88.1 Allergy status to other antibiotic agents; Z91.018 Allergy to other foods; Z79.899 Other long term (current) drug therapy; Z79.51 Long term (current) use of inhaled steroids; Z79.890 Hormone replacement therapy; Z79.84 Long term (current) use of oral hypoglycemic drugs
CPT/HCPCS: 74177; 80048; 81001; 83690; 83735; 85025; 99284-25; J2405; J7030; Q9967

== ENCOUNTER 2021-06-10 08:47 | Emergency (ER) | payer MEDICARE, MEDICAID ==
[~2021-06-10] VITALS: Ht 154.9 cm; Wt 61.7 kg
[~2021-06-10 08:47] MED LIST changes: +AUGMENTIN 875-1 EACH PO; +DILAUDID2 MG PO; +ONDANSETRON ODT8 MG PO; +TRAMADOL HCL50 MG PO
--- OUTSIDE RECORDS SUMMARY | 2021-06-10 08:50 | XMS ---
PreManage Notification: JADYN SCHMITZ Security Merchandise Support Associate Events No recent Security Events currently on file CRITERIA MET - PDMP - ED - Positive COVID-19 Lab Result - [facility] CARE PROVIDERS YONG PATEL [facility] Medicine: Adult Medicine 03/08/2021-Current PHONE: Unknown Delfina has no Care Guidelines for this patient. Destinee VISIT COUNT (12 MO.) 6 JANELLE Winkler TOTAL 6 NOTE: Visits indicate total known visits. ED/UCC VISIT TRACKING (12 MO.) 06/10/2021 08:48 JANELLE Espinoza OR TYPE: Emergency COMPLAINT: - ABDOM CRAMPING, AND PAIN IN LOWER BACK 03/07/2021 07:56 JANELLE Espinoza OR TYPE: Emergency COMPLAINT: - ABDOMINAL PAIN, DISCOMFORT DIAGNOSES: - Hormone replacement therapy - Fibromyalgia - Diverticulitis of large intestine without perforation or abscess without bleeding - Right lower quadrant pain - Personal history of nicotine dependence - Allergy status to analgesic agent - Allergy status to other antibiotic agents - jail (current) use of oral hypoglycemic drugs - Other detention (current) drug therapy - Emphysema, unspecified - Unspecified osteoarthritis, unspecified site - Allergy to other foods - exterminator helper termite (current) use of inhaled steroids 12/21/2020 13:51 JANELLE Espinoza OR TYPE: Emergency COMPLAINT: - DIFFICULTY BREATHING DIAGNOSES: - jail (current) use of oral hypoglycemic drugs - Chronic obstructive pulmonary disease with (acute) exacerbation - Allergy to other foods - Allergy status to other antibiotic agents - Personal history of nicotine dependence - Other detention (current) drug therapy - Allergy status to other drugs, medicaments and biological substances - exterminator helper termite (current) use of systemic steroids - Shortness of breath - Allergy status to analgesic agent 12/03/2020 12:03 JANELLE Espinoza OR TYPE: Emergency COMPLAINT: - SOB DIAGNOSES: - Allergy status to analgesic agent - Sleep disorder, unspecified - COUGH, UNSPECIFIED - exterminator helper termite (current) use of systemic steroids - Allergy status to other antibiotic agents - Unspecified adrenocortical insufficiency - Unspecified osteoarthritis, unspecified site - Other detention (current) drug therapy - jail (current) use of oral hypoglycemic drugs - [...] - Allergy to other foods - Other roasterman (current) drug therapy - jail (current) use of systemic steroids - Allergy status to other antibiotic agents - Dysuria - exterminator helper termite (current) use of oral hypoglycemic drugs - Emphysema, unspecified - Allergy status to analgesic agent 06/30/2020 04:[address] [facility] [place] TYPE: Emergency COMPLAINT: - ABDOMINAL PAIN,CONSTIPATION DIAGNOSES: - Diverticulitis of intestine, part unspecified, without perforation or abscess without bleeding - Emphysema, unspecified - Left lower quadrant pain - Other roasterman (current) drug therapy - Allergy status to other antibiotic agents - Allergy status to analgesic agent - exterminator helper termite (current) use of oral hypoglycemic drugs - Unspecified osteoarthritis, unspecified site - Allergy to other foods - exterminator helper termite (current) use of systemic steroids - Personal history of nicotine dependence INPATIENT VISIT TRACKING (12 MO.) No inpatient visits to display in this time frame [email or web address]
[2021-06-10] MEDS ORDERED: HYDROCODON-ACE1 EA10 PO (11:31)
[2021-06-10] MEDS ORDERED: METRONIDAZOLE500 MG PO (11:31)
[2021-06-10] MEDS ORDERED: AMOX TR-K CLV1 EAC1 PO (11:31)
== END 2021-06-10 11:45 | disposition home or self-care (01) ==
LOC: ED 08:47
DX: K57.90 Diverticulosis of intestine, part unspecified, without perforation or abscess without bleeding (principal); M19.90 Unspecified osteoarthritis, unspecified site; J43.9 Emphysema, unspecified; Z87.891 Personal history of nicotine dependence; Z88.8 Allergy status to other drugs, medicaments and biological substances; Z88.1 Allergy status to other antibiotic agents; Z91.018 Allergy to other foods; Z79.899 Other long term (current) drug therapy; Z79.52 Long term (current) use of systemic steroids; Z79.51 Long term (current) use of inhaled steroids
CPT/HCPCS: 36415; 80053; 81001; 85025; 99284; J7030

== ENCOUNTER 2021-07-02 05:24 | Emergency (ER) | payer MEDICARE, MEDICAID ==
[~2021-07-02] VITALS: Ht 157.5 cm; Wt 62.0 kg
[~2021-07-02 05:24] MED LIST changes: +AMOX TR-K CLV1 EAC1 PO; +HYDROCODON-ACE1 EA10 PO
--- OUTSIDE RECORDS SUMMARY | 2021-07-02 05:26 | XMS ---
PreManage Notification: JADYN SCHMITZ Security Intervention Teacher Events No recent Security Events currently on file CRITERIA MET - [facility] - 2 Visits in 30 Days CARE PROVIDERS YONG PATEL Family Medicine: Adult Medicine 03/08/2021-Current PHONE: Unknown Delfina has no Care Guidelines for this patient. Destinee VISIT COUNT (12 MO.) 6 [facility] TOTAL 6 NOTE: Visits indicate total known visits. ED/UCC VISIT TRACKING (12 MO.) 07/02/2021 05:24 JANELLE Espinoza OR TYPE: Emergency COMPLAINT: - ABD PAIN 06/10/2021 08:48 JAENLLE Espinoza OR TYPE: Emergency COMPLAINT: - ABDOM CRAMPING, AND PAIN IN LOWER BACK DIAGNOSES: - Unspecified osteoarthritis, unspecified site - Allergy status to other drugs, medicaments and biological substances - Allergy to other foods - Unspecified abdominal pain - Personal history of nicotine dependence - Allergy status to other antibiotic agents - Diverticulosis of intestine, part unspecified, without perforation or abscess without bleeding - adjunct faculty for medical terminology (current) use of systemic steroids - adjunct faculty for medical terminology (current) use of inhaled steroids - Other exterminator helper termite (current) drug therapy - Emphysema, unspecified 03/07/2021 07:56 JANELLE Espinoza OR TYPE: Emergency COMPLAINT: - ABDOMINAL PAIN, DISCOMFORT DIAGNOSES: - Hormone replacement therapy - Fibromyalgia - Diverticulitis of large intestine without perforation or abscess without bleeding - Right lower quadrant pain - Personal history of nicotine dependence - Allergy status to analgesic agent - Allergy status to other antibiotic agents - adjunct faculty for medical terminology (current) use of oral hypoglycemic drugs - Other exterminator helper termite (current) drug therapy - Emphysema, unspecified - Unspecified osteoarthritis, unspecified site - Allergy to other foods - alf (current) use of inhaled steroids 12/21/2020 13:51 JANELLE Espinoza OR TYPE: Emergency COMPLAINT: - DIFFICULTY BREATHING DIAGNOSES: - adjunct faculty for medical terminology (current) use of oral hypoglycemic drugs - Chronic obstructive pulmonary disease with (acute) exacerbation - Allergy to other foods - Allergy status to other antibiotic agents - Personal history of nicotine dependence - Other exterminator helper termite (current) drug therapy - Allergy status to other drugs, medicaments and biological substances - adjunct faculty for medical terminology (current) use of systemic steroids - Shortness of breath - Allergy status to analgesic agent 12/03/2020 12:03 JANELLE Espinoza OR TYPE: Emergency COMPLAINT: - SOB DIAGNOSES: - Allergy status to analgesic agent - Sleep disorder, unspecified - COUGH, UNSPECIFIED - adjunct faculty for medical terminology (current) use of systemic steroids - Allergy status to other antibiotic agents - Unspecified adrenocortical insufficiency - Unspecified osteoarthritis, unspecified site - Other exterminator helper termite (current) drug therapy - alf (current) use of oral hypoglycemic drugs - Chronic obstructive pulmonary disease with (acute) exacerbation - Allergy to other foods - Myalgia, unspecified site 10/01/2020 18:[address] [facility] [place] TYPE: Emergency COMPLAINT: - PAIN WITH URINATION DIAGNOSES: - Personal history of nicotine dependence - Allergy status to other drugs, medicaments and biological substances - Urinary tract infection, site not specified - Allergy to other foods - Other group home (current) drug therapy - adjunct faculty for medical terminology (current) use of systemic steroids - Allergy status to other antibiotic agents - Dysuria - adjunct faculty for medical terminology (current) use of oral hypoglycemic drugs - Emphysema, unspecified - Allergy status to analgesic agent INPATIENT VISIT TRACKING (12 MO.) No inpatient visits to display in this time frame [email or web address]
[2021-07-02] MEDS ORDERED: AMPHETAMINE SAL30 MG PO (05:35)
[2021-07-02] MEDS ORDERED: MACROBID 100 M100 MG PO (05:49)
[2021-07-02] MEDS ORDERED: PYRIDIUM200 MG PO (05:49)
[2021-07-02] MEDS ORDERED: NYSTATIN15 GM TOP (05:49)
== END 2021-07-02 05:57 | disposition home or self-care (01) ==
LOC: ED 05:24
DX: N39.0 Urinary tract infection, site not specified (principal); M19.90 Unspecified osteoarthritis, unspecified site; J43.9 Emphysema, unspecified; Z87.891 Personal history of nicotine dependence; Z88.8 Allergy status to other drugs, medicaments and biological substances; Z88.1 Allergy status to other antibiotic agents; Z91.018 Allergy to other foods; Z79.899 Other long term (current) drug therapy; Z79.52 Long term (current) use of systemic steroids; Z79.84 Long term (current) use of oral hypoglycemic drugs; Z79.51 Long term (current) use of inhaled steroids
CPT/HCPCS: 81001; 99283

== ENCOUNTER 2021-07-15 10:55 | Emergency (ER) | payer MEDICARE, MEDICAID ==
[~2021-07-15] VITALS: Ht 157.5 cm; Wt 62.0 kg
[~2021-07-15 10:55] MED LIST changes: +AMPHETAMINE SAL30 MG PO; +MACROBID 100 M100 MG PO; +NYSTATIN15 GM TOP; +PYRIDIUM200 MG PO
--- OUTSIDE RECORDS SUMMARY | 2021-07-15 10:58 | XMS ---
PreManage Notification: JADYN SCHMITZ Security Denture Contour Wire Specialist Events No recent Security Events currently on file CRITERIA MET - [facility] Medicine: Adult Medicine 03/08/2021-Current PHONE: Unknown Delfina has no Care Guidelines for this patient. Destinee VISIT COUNT (12 MO.) [address] [place] [address] TOTAL 7 NOTE: Visits indicate total known visits. ED/UCC VISIT TRACKING (12 MO.) 07/15/2021 10:56 JANELLE Espinoza OR TYPE: Emergency COMPLAINT: - ABDOMINAL PAIN 07/02/2021 05:24 JANELLE Espinoza OR TYPE: Emergency COMPLAINT: - ABD PAIN DIAGNOSES: - Dysuria - Personal history of nicotine dependence - Allergy status to other drugs, medicaments and biological substances - Allergy status to other antibiotic agents - meterman (current) use of oral hypoglycemic drugs - Unspecified osteoarthritis, unspecified site - Emphysema, unspecified - Allergy to other foods - meterman (current) use of systemic steroids - Urinary tract infection, site not specified - meterman (current) use of inhaled steroids - Other vermin exterminator (current) drug therapy 06/10/2021 08:48 JANELLE Espinoza OR TYPE: Emergency [...] without perforation or abscess without bleeding - FDC (current) use of systemic steroids - FDC (current) use of inhaled steroids - Other vermin exterminator (current) drug therapy - Emphysema, unspecified 03/07/2021 07:56 JANELLE Espinoza OR TYPE: Emergency COMPLAINT: - ABDOMINAL PAIN, DISCOMFORT DIAGNOSES: - Hormone replacement therapy - Fibromyalgia - Diverticulitis of large intestine without perforation or abscess without bleeding - Right lower quadrant pain - Personal history of nicotine dependence - Allergy status to analgesic agent - Allergy status to other antibiotic agents - FDC (current) use of oral hypoglycemic drugs - Other vermin exterminator (current) drug therapy - Emphysema, unspecified - Unspecified osteoarthritis, unspecified site - Allergy to other foods - FDC (current) use of inhaled steroids 12/21/2020 13:51 JANELLE Espinoza OR TYPE: Emergency COMPLAINT: - DIFFICULTY BREATHING DIAGNOSES: - meterman (current) use of oral hypoglycemic drugs - Chronic obstructive pulmonary disease with (acute) exacerbation - Allergy to other foods - Allergy status to other antibiotic agents - Personal history of nicotine dependence - Other vermin exterminator (current) drug therapy - Allergy status to other drugs, medicaments and biological substances - FDC (current) use of systemic steroids - Shortness of breath - Allergy status to analgesic agent 12/03/2020 12:03 JANELLE Espinoza OR TYPE: Emergency COMPLAINT: - SOB DIAGNOSES: - Allergy status to analgesic agent - Sleep disorder, unspecified - COUGH, UNSPECIFIED - FDC (current) use of systemic steroids - Allergy status to other antibiotic agents - Unspecified adrenocortical insufficiency - Unspecified osteoarthritis, unspecified site - Other residential (current) drug therapy - [facility]DC (current) use of oral hypoglycemic drugs - [...] - Allergy to other foods - Other vermin exterminator (current) drug therapy - meterman (current) use of systemic steroids - Allergy status to other antibiotic agents - Dysuria - [facility] (current) use of oral hypoglycemic drugs - Emphysema, unspecified - Allergy status to analgesic agent INPATIENT VISIT TRACKING (12 MO.) No inpatient visits to display in this time frame [email or web address]
[2021-07-15] MEDS ORDERED: DICYCLOMINE HCL20 MG PO (14:28)
== END 2021-07-15 14:47 | disposition home or self-care (01) ==
LOC: ED 10:55
DX: R10.32 Left lower quadrant pain (principal); J44.9 Chronic obstructive pulmonary disease, unspecified; M19.90 Unspecified osteoarthritis, unspecified site; J43.9 Emphysema, unspecified; Z87.891 Personal history of nicotine dependence; Z88.6 Allergy status to analgesic agent; Z88.1 Allergy status to other antibiotic agents; Z91.018 Allergy to other foods; Z79.899 Other long term (current) drug therapy; Z79.52 Long term (current) use of systemic steroids; Z79.84 Long term (current) use of oral hypoglycemic drugs
CPT/HCPCS: 36415; 74177; 80053; 81001; 83690; 85025; 99284-25; J2405; J7030; Q9967

== ENCOUNTER 2021-11-29 05:11 | Emergency (ER) | payer MEDICARE, OTHER ==
[~2021-11-29] VITALS: Ht 157.5 cm; Wt 60.0 kg
[~2021-11-29 05:11] MED LIST changes: +DICYCLOMINE HCL20 MG PO
--- OUTSIDE RECORDS SUMMARY | 2021-11-29 05:14 | XMS ---
PreManage Notification: JADYN SCHMITZ [employer] Events No recent Security Events currently on file CRITERIA MET - PDMP CARE PROVIDERS YONG PATEL [facility] Medicine: Adult Medicine 03/08/2021-Current PHONE: Unknown Delfina has no Care Guidelines for this patient. Destinee VISIT COUNT (12 MO.) 8 JANELLE Winkler TOTAL 8 NOTE: Visits indicate total known visits. ED/UCC VISIT TRACKING (12 MO.) 11/29/2021 05:12 JANELLE Espinoza OR TYPE: Emergency COMPLAINT: - POSS UTI 10/19/2021 06:28 JANELLE Espinoza OR TYPE: Emergency COMPLAINT: - ABD PAIN DIAGNOSES: - Diverticulitis of intestine, part unspecified, without perforation or abscess without bleeding - Allergy status to analgesic agent - Other instrumentation specialist (current) drug therapy - Left lower quadrant pain - Personal history of nicotine dependence - Allergy status to other antibiotic agents - Allergy to other foods - Emphysema, unspecified 07/15/2021 10:56 JANELLE Espinoza OR TYPE: Emergency COMPLAINT: - ABDOMINAL PAIN DIAGNOSES: - Unspecified osteoarthritis, unspecified site - gameroom technician (current) use of oral hypoglycemic drugs - Personal history of nicotine dependence - Lower abdominal pain, unspecified - gameroom technician (current) use of systemic steroids - Chronic obstructive pulmonary disease, unspecified - Allergy status to analgesic agent - Allergy to other foods - Left lower quadrant pain - Allergy status to other antibiotic agents - Other instrumentation specialist (current) drug therapy - Emphysema, unspecified 07/02/2021 05:24 JANELLE Espinoza OR TYPE: Emergency COMPLAINT: - ABD PAIN DIAGNOSES: - [facility] (current) use of oral hypoglycemic drugs - Other instrumentation specialist (current) drug therapy - Allergy status to other drugs, medicaments and biological substances - Urinary tract infection, site not specified - Dysuria - Allergy to other foods - Unspecified osteoarthritis, unspecified site - Allergy status to other antibiotic agents - gameroom technician (current) use of inhaled steroids - Personal history of nicotine dependence - [facility] (current) use of systemic steroids - Emphysema, unspecified 06/10/2021 08:48 JANELLE Espinoza OR TYPE: Emergency COMPLAINT: - ABDOM CRAMPING, AND PAIN IN LOWER BACK DIAGNOSES: - Personal history of nicotine dependence - Allergy to other foods - Other instrumentation specialist (current) drug therapy - Unspecified osteoarthritis, unspecified site - [facility] (current) use of systemic steroids - Allergy status to other antibiotic agents - Unspecified abdominal pain - Emphysema, unspecified - Allergy status to other drugs, medicaments and biological substances - [facility] (current) use of inhaled steroids - Diverticulosis of intestine, part unspecified, without perforation or abscess without bleeding 03/07/2021 07:56 JANELLE Espinoza OR TYPE: Emergency COMPLAINT: - ABDOMINAL PAIN, DISCOMFORT DIAGNOSES: - Personal history of nicotine dependence - Allergy to other foods - Diverticulitis of large intestine without perforation or abscess without bleeding - Emphysema, unspecified - Hormone replacement therapy - gameroom technician (current) use of oral hypoglycemic drugs - Allergy status to analgesic agent - gameroom technician (current) use of inhaled steroids - Right lower quadrant pain - Unspecified osteoarthritis, unspecified site - Fibromyalgia - Other assisted (current) drug therapy - Allergy status to other antibiotic agents 12/21/2020 13:51 JANELLE Espinoza OR TYPE: Emergency COMPLAINT: - DIFFICULTY BREATHING DIAGNOSES: - Personal history of nicotine dependence - Allergy to other foods - Allergy status to analgesic agent - gameroom technician (current) use of oral hypoglycemic drugs - [facility] (current) use of systemic steroids - Other instrumentation specialist (current) drug therapy - Allergy status to other antibiotic agents - Chronic obstructive pulmonary disease with (acute) exacerbation - Shortness of breath - Allergy status to other drugs, medicaments and biological substances 12/03/2020 12:03 JANELLE Espinoza OR TYPE: Emergency COMPLAINT: - SOB DIAGNOSES: - Allergy status to other antibiotic agents - Myalgia, unspecified site - COUGH, UNSPECIFIED - Chronic obstructive pulmonary disease with (acute) exacerbation - Allergy status to analgesic agent - Other instrumentation specialist (current) drug therapy - Unspecified adrenocortical insufficiency - gameroom technician (current) use of systemic steroids - Allergy to other foods - Sleep disorder, unspecified - gameroom technician (current) use of oral hypoglycemic drugs - Unspecified osteoarthritis, unspecified site INPATIENT VISIT TRACKING (12 MO.) No inpatient visits to display in this time frame [email or web address]
[2021-11-29] MEDS ORDERED: SUNOSI75 MG PO (05:38)
[2021-11-29] MEDS ORDERED: MACROBID 100 M100 MG PO (05:54)
[2021-11-29] MEDS ORDERED: CEPHALEXIN500 M1 PO (05:58)
== END 2021-11-29 06:15 | disposition home or self-care (01) ==
LOC: ED 05:11
DX: N39.0 Urinary tract infection, site not specified (principal); J43.9 Emphysema, unspecified; Z87.891 Personal history of nicotine dependence; Z88.6 Allergy status to analgesic agent; Z88.1 Allergy status to other antibiotic agents; Z91.018 Allergy to other foods; Z79.899 Other long term (current) drug therapy
CPT/HCPCS: 36415; 80053; 81001; 85025; 87088; 87186; 99283; A9270

== ENCOUNTER 2023-12-02 11:46 | Emergency (ER) | payer MEDICARE, OTHER ==
[~2023-12-02] VITALS: Ht 157.5 cm; Wt 57.9 kg
[~2023-12-02 11:46] MED LIST changes: +CEPHALEXIN500 M1 PO; +SUNOSI75 MG PO
[2023-12-02 12:31] LABS: BASOPHILS 0.3 % (0-2); EOSINOPHILS 0.2 % (0-6); HEMATOCRIT 41.7 % (35.0-50.0); HEMOGLOBIN 13.8 g/dL (12.0-18.0); LYMPHOCYTES 8.3 % (24-44); MCH 30.5 (27-36); MCHC 33.1 g/dl (30-36); MCV 92.2 fl (81-99); MONOCYTES 2.8 % (0-12); NEUTROPHILS 88.4 % (39-80); PLATELET COUNT 387 K/uL (140-440); RBC 4.53 M/ul (4.3-5.7)
[2023-12-02 12:51] LABS: ALBUMIN 2.8 g/dL (3.4-5.0); ALBUMIN/GLOBULIN RATIO 0.97 (1.1-2.4); ALKALINE PHOSPHATASE 66 U/L (46-116); ALT (SGPT) 11 U/L (14-59); ANION GAP 12.7 (7-21); AST (SGOT) 8 U/L (15-37); BILIRUBIN, TOTAL 0.2 ng/dL (0.2-1.0); CALCIUM 8.7 mg/dL (8.5-10.1); CARBON DIOXIDE 27 mmol/L (21-32); CHLORIDE 106 mmol/L (98-107); GLOMERULAR FILTRATION RATE,EST 66 mL/min (>60); MAGNESIUM 1.7 mg/dL (1.8-2.4); POTASSIUM 3.7 mmol/L (3.5-5.1); PROTEIN, TOTAL 5.7 g/dL (6.4-8.2); UREA NITROGEN 10 mg/dL (7-18)
[2023-12-02 15:08] VITALS: BP 113/60
--- NOTE | 2023-12-03 15:50 | EKG ---
[facility] [address] [place] [address] Signed Normal sinus rhythm Prolonged QT Abnormal ECG When compared with ECG of 27-MAY-2020 20:29, Nonspecific T wave abnormality now evident in Inferior leads Confirmed by Johan Sneed MD ([id number]) on 12/03/2023 3:50:21 PM Electronically Signed By: JOHAN SNEED MD 12/03/23 1550 PATIENT NAME: THEOHERBIE WHITTAKERJADYNEMMETT [place] Electrocardiogram DATE OF : 69 PHYSICIAN: JOHAN SNEED MD REPORT #: [id number] REPORT IS CONFIDENTIAL AND NOT TO BE RELEASED WITHOUT AUTHORIZATION
== END 2023-12-02 15:09 | disposition home or self-care (01) ==
LOC: ED 11:46
PROVIDERS: Emergency Medicine
DX: R00.2 Palpitations (principal); J43.9 Emphysema, unspecified; Z87.891 Personal history of nicotine dependence; Z88.6 Allergy status to analgesic agent; Z91.018 Allergy to other foods; Z88.1 Allergy status to other antibiotic agents; Z79.899 Other long term (current) drug therapy; Z79.890 Hormone replacement therapy; Z79.84 Long term (current) use of oral hypoglycemic drugs
CPT/HCPCS: 36415; 80053; 83735; 84484; 85025; 93005; 93010; 99285

== ENCOUNTER 2025-01-29 13:28 | Emergency (ER) | payer MEDICARE ==
[~2025-01-29] VITALS: Ht 157.5 cm; Wt 66.7 kg
[2025-01-29] MEDS ORDERED: DIPHTH,PERTUSS(ACELL),TET VAC 0.5 ML SYRINGE IM ONE (14:15)
[2025-01-29 15:11] VITALS: BP 102/50
== END 2025-01-29 15:14 | disposition home or self-care (01) ==
LOC: ED 13:28
DX: S61.412A Laceration without foreign body of left hand, initial encounter (principal); J44.9 Chronic obstructive pulmonary disease, unspecified; W26.0XXA Contact with knife, initial encounter; Z79.899 Other long term (current) drug therapy; Z88.6 Allergy status to analgesic agent; Z91.018 Allergy to other foods; Z88.1 Allergy status to other antibiotic agents; Z87.891 Personal history of nicotine dependence
CPT/HCPCS: 12001; 90471; 90715; 99282-25